=== PATIENT | female | born 2000 | race Caucasian/White ===

== ENCOUNTER 2019-05-05 16:20 | Outpatient (RCR) | payer MEDICAID, SELFPAY | END 2019-05-05 23:59 | disposition home or self-care (01) | LOC: NS 16:20 | PROVIDERS: Family Provider Pediatrics; PCP Pediatrics; Visit Provider Pediatrics | DX: Z71.3 Dietary counseling and surveillance (principal); E66.9 Obesity, unspecified; Q87.40 Marfan syndrome, unspecified; Z68.35 Body mass index [BMI] 35.0-35.9, adult | CPT/HCPCS: 97802 ==

== ENCOUNTER 2020-11-13 00:55 | Emergency (ER) | payer MEDICAID, SELFPAY ==
[2020-11-13 01:00] VITALS: BP 144/82; PULSE 101; RESP 16; TEMP 36.8; O2SAT 97; BMI 36.9
--- NOTE | 2020-11-13 01:02 | ED.VIS.FEGU ---
HPI HPI - Female History of Present Illness Chief Complaint: Female C/O Narrative Narrative: Patient stated she has had brown discharge for a month patient stated she denies any pain. No history of STD. Not foul-smelling. Stated she has some numbness in her vagina which concerned her tonight therefore she came in. Took a negative test today. No abdominal pain. No fevers or chills. PFSH PFS Medical History ADHD (attention deficit hyperactivity disorder) Femur fracture, right Retinal detachment, old, total/subtotal Home Medications dextroamphetamine-amphetamine [Adderall 30 mg Tablet] 30 mg PO DAILY 04/03/15 [History Last Taken Unknown] dextroamphetamine-amphetamine [Adderall 5 mg Tablet] 10 mg PO DAILY 04/03/15 [History Last Taken Unknown] methylphenidate HCl [Ritalin] 20 mg PO DAILY 04/03/15 [History Last Taken Unknown] topiramate [Topamax] 25 mg PO DAILY 04/03/15 [History Last Taken Unknown] venlafaxine 37.5 mg PO DAILY 04/03/15 [History Last Taken Unknown] Allergy/AdvReac Type Severity Reaction Status Date / Time No Known Allergies Allergy Verified 11/13/20 00:56 Social History Smoking Status: Light Smoker (<10/day) ROS ROS ED ROS Narrative ROS General: Denies fever, chills, sweats Eyes: Denies visual changes, blurred vision, double vision ENT: Denies ear pain, rhinorrhea, sore throat Cardiovascular: Denies chest pain, palpitations, heart racing Respiratory: Denies dyspnea, cough, sputum, dyspnea on exertion, orthopnea,PND GI: Denies abdominal pain, nausea, vomiting, diarrhea, constipation, melena : Denies dysuria, hematuria, frequency. See HPI Musculoskeletal: Denies myalgias, arthralgias, neck pain, back pain Skin: Denies rash, abscess, abrasions Neuro: Denies headache, weakness, paresthesia Psych: Denies depression, anxiety Endo: Denies polyuria, polydipsia, polyphagia Heme: Denies easy bruising, easy bleeding, lymphadenopathy Allergy: Denies hives, swelling EXAM Physical Exam Narrative Exam Narrative: Vital signs reviewed General: Well-nourished well-developed Head: Normocephalic atraumatic Eyes: Pupils equal round and reactive to light extraocular movements intact ENT: TMs clear no hemotympanum no trauma Neck: Nontender full range of motion Cardiovascular: Regular rate rhythm no murmurs normal S1-S2 Respiratory: No distress clear to auscultation bilaterally chest nontender Abdomen: Soft nontender nondistended normal bowel sounds no masses Pelvic exam:: Mild scant brownish discharge in the vaginal vault. Cervix normal. No tenderness. Back: Nontender no CVA tenderness Extremities: Nontender active range of motion ?4 extremities no trauma Skin: Normal color no trauma Neuro alert oriented cranial nerves II through XII intact normal strength sensation reflexes Const Vital Signs: 11/13/20 01:00 Temperature 98.3 F Temperature Source Oral Pulse Rate 101 H Respiratory Rate 16 Blood Pressure 144/82 H Blood Pressure Mean 102 Pulse Ox 97 Oxygen Delivery Method Room Air MDM MDM MDM Narrative Medical decision making narrative: Pelvic exam unremarkable. Urinalysis shows no evidence of infection. I did send gonorrhea and chlamydia test however I have a low suspicion for infection. I will not treat her. I feel she is likely just having some shedding of her endometrial lining. She started her period while in the emergency department. We will follow-up as an outpatient Lab Data Labs: Laboratory Results - last 24 hr 11/13/20 02:10 Urine Color Yellow Urine Clarity Clear Urine pH 5.0 Ur Specific [place] 1.025 Urine Protein Negative Urine Glucose (UA) Normal Urine Ketones Negative Urine Occult Blood 10 H Urine Nitrite Negative Urine Bilirubin Negative Urine Urobilinogen Normal Ur Leukocyte Esterase 25 H Urine RBC 0 SEEN Urine WBC 0-5 SEEN Ur Squamous Epith Cells 0-5 SEEN Urine Bacteria RARE Urine Mucus 1+ Discharge Plan Triage Chief Complaint: Female C/O ED Provider: [place] Dx/Rx/DC Orders Clinical Impression: Vaginal discharge Instructions: ED Pelvic Pain, Unknown Cause Prescriptions: No Action methylphenidate HCl [Ritalin] 20 MG tablet 20 mg PO DAILY RF: 0 topiramate [Topamax] 25 MG tablet 25 mg PO DAILY RF: 0 dextroamphetamine-amphetamine [Adderall] 30 MG tablet 30 mg PO DAILY RF: 0 venlafaxine 37.5 MG tablet 37.5 mg PO DAILY RF: 0 dextroamphetamine-amphetamine [Adderall] 5 MG tablet 10 mg PO DAILY RF: 0 Primary Care Provider: Hugo Smalls Referrals: Suyapa Recinos MD [STAFF PHYSICIAN] - Hugo Smalls MD [Primary Care Provider] - Disposition Disposition: Home, self care
[2020-11-13 02:17] LABS: Red Blood Cells-Urine 0 SEEN /hpf (0-5)
[2020-11-13 02:21] LABS: Color, Urine Yellow (Yellow); Glucose, Dipstick Normal (Normal); Ketone-Dipstick Negative (Negative); Leukocyte Esterase-Dipstick 25 /ul (Negative); Nitrite-Dipstick Negative (Negative); Occult Blood-Urine 10 /ul (Negative); Protein-Dipstick Negative (Negative); Specific Gravity, Urine 1.025 (1.002-1.030); Urine Bilirubin Dipstick Negative (Negative); Urine Clarity Clear (Clear); Urine Urobilinogen Normal (Normal)
[2020-11-13 02:30] LABS: Bacteria RARE /hpf (None Seen); Mucous, Urine 1+ /hpf (<or=2+); Squamous Epithelial Cells - UA 0-5 SEEN /hpf (5-10); White Blood Cells 0-5 SEEN /hpf (0-5)
[2020-11-13 04:03] LABS: Chlamydia Trachomatis by PCR Negative (Negative); Neisserai gonorrhoeae by PCR Negative (Negative); Probe Check PASS; Sample Adequacy Control PASS; Specimen Processing Control PASS
== END 2020-11-13 03:09 | disposition home or self-care (01) ==
PROVIDERS: Emergency Provider Emergency Medicine; PCP Pediatrics
DX: N89.8 Other specified noninflammatory disorders of vagina (principal); F90.9 Attention-deficit hyperactivity disorder, unspecified type
CPT/HCPCS: 81001; 87491; 87591; 99282

== ENCOUNTER 2022-01-26 01:59 | Emergency (ER) | payer MEDICAID, SELFPAY ==
[2022-01-26 01:59] VITALS: BP 143/82; PULSE 119; RESP 18; TEMP 36.9; O2SAT 100; BMI 38.6
--- NOTE | 2022-01-26 02:14 | RAD_ITS ---
STUDY: X-RAY - RIGHT FOOT CLINICAL: Female, 21 years old. Pain after injury. TECHNIQUE: 3 view(s) of the foot. COMPARISON: Ankle radiographs same date. FINDINGS: No visible fracture. No osseous destruction. Alignment anatomic. No significant degenerative changes. Soft tissues unremarkable. RAD/Foot min 3 Views IMPRESSION: No acute osseous abnormality. Electronically Signed: Sonido Chong MD at 3:01 EDT ,
--- NOTE | 2022-01-26 02:14 | RAD_ITS ---
STUDY: X-RAY - RIGHT ANKLE REASON FOR EXAM: Female, 21 years old. Injury. TECHNIQUE: 3 view(s) of the ankle. COMPARISON: Foot radiographs same date. FINDINGS: No visible fracture. No osseous destruction. Alignment anatomic. No significant degenerative changes. Soft tissues unremarkable. RAD/Ankle min 3 Views IMPRESSION: No acute osseous abnormality. Electronically Signed: Sonido Chong MD at 3:00 EDT ,
[2022-01-26] MEDS: Naproxen 250 MG Tablet 500 MG PO (02:27)
--- NOTE | 2022-01-26 02:32 | ED.VIS.LOWEX ---
HPI History of Present Illness Chief Complaint: Lower Extremity Injury Informant: patient Onset/Context/Timing Onset: Hours (9) Context: Sudden Onset Timing: Continuous Quality of Pain: Aching Location: Right ankle/foot Current Severity: Moderate Maximum Severity: Moderate Worsened by: Walking, weightbearing Relieved by: Rest Associated Symptoms Associated Symptoms: Negative for Parasthesia, Weakness or Loss of Funtion Narrative Narrative: Patient states she went off of a diving board and somehow twisted her ankle, she describes an inversion injury, but all of her pain is in the arch of her foot. Able to walk on it but painful. No other injury. [facility] Medical History ADHD (attention deficit hyperactivity disorder) Femur fracture, right Marfan syndrome Retinal detachment, old, total/subtotal Home Medications dextroamphetamine-amphetamine 30 mg tablet (Adderall) 30 mg PO DAILY 04/03/15 [History Last Taken Unknown] dextroamphetamine-amphetamine 5 mg tablet (Adderall) 10 mg PO DAILY 04/03/15 [History Last Taken Unknown] methylphenidate HCl 20 mg tablet (Ritalin) 20 mg PO DAILY 04/03/15 [History Last Taken Unknown] topiramate 25 mg tablet (Topamax) 25 mg PO DAILY 04/03/15 [History Last Taken Unknown] venlafaxine 37.5 mg tablet 37.5 mg PO DAILY 04/03/15 [History Last Taken Unknown] Allergy/AdvReac Type Severity Reaction Status Date / Time No Known Allergies Allergy Verified 01/26/22 02:02 Social History Smoking Status: Light Smoker (<10/day) ROS ROS ED Constitutional Constitutional ED: Denies chills or fever(s) Musculoskeletal Musculoskeletal: Reports extremity pain; Denies neck pain Integumentary Denies Abrasions, rash or wounds Neurologic Neurologic: Denies paresthesias or weakness EXAM Physical Exam Const Vital Signs: 01/26/22 01:59 Temperature 98.4 F Temperature Source Temporal Pulse Rate 119 H Respiratory Rate 18 Blood Pressure 143/82 H Blood Pressure Mean 102 Pulse Ox 100 Oxygen Delivery Method Room Air Positive well nourished and well developed General Appearance ED: well developed and NAD Neck full ROM and supple Back/Spine normal ROM and normal to inspection Extremity normal to inspection and full ROM Extremity Narrative: Minimal tenderness at the medial malleolus distal aspect, nontender at the lateral malleolus and base of the fifth metatarsal. Nontender at the knee, proximal fibula, rest of the lower leg. Mild tenderness at the medial aspect of the talus and the soft tissues of the arch of the foot. Normal inspection, no swelling, no calcaneus or other midfoot tenderness. Neuro oriented x3, no focal motor deficits and no sensory deficits noted Sensorium / Orientation: alert Psych mental status grossly normal and thought process normal Skin no wounds Rashes: no rashes MDM MDM MDM Narrative Medical decision making narrative: Three-view x-ray series of the right ankle and 3 view x-ray series of the right foot both on my interpretation negative for any acute abnormality. She was reassured, given NSAIDs, Aircast, and discharged with appropriate discharge instructions for follow-up as needed if not improving after 2 weeks. Discharge Plan Triage Chief Complaint: Lower Extremity Injury ED Provider: Gerardo Constantino Dx/Rx/DC Orders Clinical Impression: Sprain of ankle, right, Sprain of foot, right Instructions: ED Foot Sprain, ED Ankle Sprain (Adult) Prescriptions: No Action methylphenidate HCl [Ritalin] 20 MG tablet 20 mg PO DAILY topiramate [Topamax] 25 MG tablet 25 mg PO DAILY dextroamphetamine-amphetamine [Adderall] 30 MG tablet 30 mg PO DAILY venlafaxine 37.5 MG tablet 37.5 mg PO DAILY dextroamphetamine-amphetamine [Adderall] 5 MG tablet 10 mg PO DAILY Primary Care Provider: Care Physician,No Primary Referrals: Philippe Auguste DPM [Med Staff - Active Staff] - 10-14 Days if not better Care Physician,No Primary [Primary Care Provider] - Activity Restrictions/Additional Instructions: Ibuprofen as needed for pain. May add Tylenol to this if you need to. May also ice the affected area if you need to and elevate if swollen. Disposition Disposition: Home, Self Care
== END 2022-01-26 03:18 | disposition home or self-care (01) ==
PROVIDERS: Emergency Provider Emergency Medicine; Visit Provider Emergency Medicine
DX: S93.401A Sprain of unspecified ligament of right ankle, initial encounter (principal); S93.601A Unspecified sprain of right foot, initial encounter; X50.1XXA Overexertion from prolonged static or awkward postures, initial encounter; Y93.12 Activity, springboard and platform diving; Y99.8 Other external cause status; F90.9 Attention-deficit hyperactivity disorder, unspecified type; F17.200 Nicotine dependence, unspecified, uncomplicated; Z79.899 Other long term (current) drug therapy
CPT/HCPCS: 73610; 73630; 99283

== ENCOUNTER 2022-04-11 00:48 | Emergency (ER) | payer MEDICAID, SELFPAY ==
[2022-04-11 00:49] VITALS: BP 139/81; PULSE 96; RESP 18; TEMP 36.8; O2SAT 100; BMI 38.9
--- NOTE | 2022-04-11 00:55 | EKG12_ITS ---
Test Reason : CP Blood Pressure : / mmHG Vent. Rate : 088 BPM Atrial Rate : 088 BPM P-R Int : 154 ms QRS Dur : 076 ms QT Int : 370 ms P-R-T Axes : 047 044 053 degrees QTc Int : 447 ms Normal sinus rhythm Normal ECG Confirmed by LOIRN MEDRANO, NIMCO ([id number]), editor dictionary LOS ZARATE ([id number]) on 04/15/2022 9:46:03 A M Referred By: [facility] Confirmed By:LULI PADGETT MD
[2022-04-11] MEDS: Mag Hydrox/Al Hydrox/Simeth 30 ML UDC PO (01:20)
[2022-04-11 01:22] LABS: Absolute Lymphocyte Count 5.53 X10^3/uL (0.83-4.51); Absolute Neutrophil Count 8.3 X10^3/uL (2.0-7.7); Basophil# 0.11 X10^3/uL; Basophil% 0.7 % (0-1); Eosinophil# 0.24 X10^3/uL; Eosinophils% 1.6 % (0-5); Hematocrit 39.5 % (37-47); Hemoglobin 13.5 g/dL (12.0-15.0); Lymphocyte # 5.53 X10^3/ul (0.83-4.51); Lymphocyte % 36.2 % (19-41); Mean Corp Hgb Conc 34.2 g/dL (32-36); Mean Corpuscular Hgb 30.8 pg (27.0-32.0); Mean Corpuscular Volume 90.2 fL (81-99); Mean Platelet Vol. 9.7 fl (6.2-12.0); Monocyte# 1.04 X10^3/uL; Monocyte% 6.8 % (0-10); NRBC Flagged by Analyzer 0 % (0-5); Neutrophil # 8.29 X10^3/uL (2.7-7.7); Neutrophil % 54.4 % (47-70); POSITIVE DIFFERENTIAL YES; Platelet Count 493 K/mm3 (150-450); RBC Distribution Width CV 12.1 % (11.6-14.6); RBC Distribution Width SD 40.5 fl (35.1-43.9); Red Blood Count 4.38 M/mm3 (4.2-5.4); White Blood Count 15.3 K/mm3 (4.4-11.0)
[2022-04-11 01:32] LABS: Differential Indicated SCAN CRITERIA MET
[2022-04-11] MEDS: Famotidine 200 MG/20 ML MDV 20 MG in 0.9% Normal Saline (Pres. free 8 ML 300 MG IV (01:33)
[2022-04-11 01:45] LABS: Differential Comment SCANNED
[2022-04-11 01:49] LABS: AST(SGOT) 53 U/L (15-37); Alanine Aminotransfer ALT/SGPT 92 U/L (13-56); Albumin, Serum 3.4 g/dL (3.2-5.0); Alkaline Phosphatase 78 U/L (45-117); Anion Gap 7 (5-15); BUN 8 mg/dL (7-18); BUN/Creat Ratio 10.3 RATIO (10-20); Bilirubin, Direct 0.07 mg/dL (0.00-0.30); Calcium,Total 8.8 mg/dL (8.5-10.1); Chloride 106 mmol/L (98-107); Creatinine, Serum 0.77 mg/dL (0.55-1.02); EST Glomerular Filtration Rate 98 mL/min (>60); Est Glom Filt Rate - Afr Amer 119 mL/min (>60); Estimated Creatinine Clearance 135.25 ml/min; Globulin 4.7 g/dL (2.2-4.2); Glucose 92 mg/dL (74-106); Lipase 124 U/L (73-393); Potassium 3.8 mmol/L (3.5-5.1); Protein, Total 8.1 g/dL (6.4-8.2); Sodium Level 140 mmol/L (136-145); Troponin-I HS 4 pg/mL (3.0-54.0)
--- NOTE | 2022-04-11 01:50 | RAD_ITS ---
STUDY: X-RAY CHEST REASON FOR EXAM: Female, 21 years old. chest pain TECHNIQUE: Frontal and lateral views of the chest. COMPARISON: None. FINDINGS: The lungs are clear and expanded. There is no demonstrated pleural abnormality. Normal size heart. Normal mediastinum and yoly. Normal visualized pulmonary arteries. Normal visualized aortic arch and descending thoracic aorta. Normal visualized thoracic spine. Normal visualized ribs, clavicles, and shoulders. There is no demonstrated abnormality of the visualized soft tissue structures of the upper abdomen. RAD/Chest PA and Lateral IMPRESSION: Normal x-ray examination of the chest. Electronically Signed: Alexandra Paz MD at 3:09 EDT ,
--- NOTE | 2022-04-11 01:55 | EX.ED.DYSGE1 ---
HPI History of Present Illness Chief Complaint: Chest Pain Narrative Narrative: Patient is a 21-year-old female with past medical history of Marfan syndrome. She states that around 11 PM this evening she noticed some midsternal chest discomfort which she states is more burning in nature. She denies any radiation of the pain and she denies any nausea vomiting diaphoresis or shortness of breath associated with this. She denies any recent travel surgery or history of DVT/PE. She denies any family history of cardiac disease at a young age. She states that because of her Marfan syndrome she is concerned that this discomfort could be related to her heart and therefore comes in for evaluation [facility] Medical History ADHD (attention deficit hyperactivity disorder) Femur fracture, right Marfan syndrome Retinal detachment, old, total/subtotal Home Medications dextroamphetamine-amphetamine 30 mg tablet (Adderall) 30 mg PO DAILY 04/03/15 [History Last Taken Unknown] dextroamphetamine-amphetamine 5 mg tablet (Adderall) 10 mg PO DAILY 04/03/15 [History Last Taken Unknown] methylphenidate HCl 20 mg tablet (Ritalin) 20 mg PO DAILY 04/03/15 [History Last Taken Unknown] Allergy/AdvReac Type Severity Reaction Status Date / Time No Known Allergies Allergy Verified 01/26/22 02:02 Social History Smoking Status: Light Smoker (<10/day) [facility] ED Constitutional Constitutional ED: Denies chills or fever(s) ENT ENT ED: Denies sore throat Cardiovascular Cardiovascular: Reports chest pain; Denies palpitations or racing heartbeat Respiratory/Chest Respiratory/Chest: Denies cough or dyspnea Gastrointestinal Gastrointestinal: Denies abdominal pain, diarrhea, nausea or vomiting Genitourinary Genitourinary ED: Denies dysuria Musculoskeletal Musculoskeletal: Denies back pain or myalgias Integumentary Denies rash Neurologic Neurologic: Denies headache(s) Hematologic/Lymphatic Hematologic/Lymphatic: Denies easy bleeding or easy bruising EXAM Physical Exam Const Vital Signs: 04/11/22 00:49 04/11/22 00:51 04/11/22 01:56 Temperature 98.2 F Temperature Source Temporal Pulse Rate 96 85 Respiratory Rate 18 16 Respiratory Effort Normal Blood Pressure 139/81 H 131/94 H Blood Pressure Mean 100 106 Pulse Ox 100 97 Oxygen Delivery Method Room Air Room Air 04/11/22 02:02 Temperature Temperature Source Pulse Rate 91 Respiratory Rate 20 H Respiratory Effort Blood Pressure 130/77 H Blood Pressure Mean 94 Pulse Ox 96 Oxygen Delivery Method Room Air Positive well nourished, well developed and obese General Appearance ED: well developed Nutritional Appearance: obese Eyes PERRL and EOMs intact bilaterally Neck supple Chest Wall Chest Narrative: Reproducible pain along the sternum without any bony deformity or crepitance that patient states is similar to the pain she has been experiencing Resp normal respiratory effort and clear to auscultation bilaterally Cardio regular rate and regular rhythm Rate: other Other Details: Radial pulses are plus 2 out of 4 bilaterally they are equal and symmetric Carotid pulses are equal and symmetric as well GI non-distended GI Narrative: Abdomen is soft and nondistended with normoactive bowel sounds. There is mild pain with palpation in the midepigastric region without voluntary guarding or rigidity. No pulsatile mass Auscultation: normoactive bowel sounds Palpation: soft Extremity normal to inspection Extremity Narrative: No asymmetric edema no pitting edema negative Homans' sign bilaterally Neuro oriented x3 and CN's II-XII intact bilaterally Sensorium / Orientation: alert Psych mental status grossly normal Skin no rashes or lesions noted MDM MDM MDM Narrative Medical decision making narrative: Patient presented to the ER in no acute distress. She is low risk for cardiovascular disease but based on her history of Marfan syndrome I did elect to check basic labs and an x-ray. Also as I was able to reproduce pain in the midepigastric region there was concern for an atypical presentation for pancreatitis. Blood work showed elevation to her white blood cell count which patient states has been elevated in the past but otherwise troponin is normal and lipase is normal as well. As she has Marfan's and is at higher risk for spontaneous pneumothorax chest x-ray was obtained which did not reveal this nor did it show widening mediastinum to suggest a possible dissection. Patient was given Pepcid and a GI cocktail and on reevaluation did report moderate improvement of her symptoms. Therefore at this time as her work-up is negative and the fact symptoms have improved with Pepcid and GI cocktail indicate this is more of a gastritis and she is otherwise safe for discharge Lab Data Attestation: I reviewed the patient's lab results. Labs: Laboratory Results - last 24 hr 04/11/22 04/11/22 01:10 01:10 WBC 15.3 H RBC 4.38 Hgb 13.5 Hct 39.5 MCV 90.2 MCH 30.8 MCHC 34.2 RDW Std Deviation 40.5 RDW Coeff of [place] 12.1 Plt Count 493 H MPV 9.7 Immature Gran % (Auto) 0.300 Neut % (Auto) 54.4 Lymph % (Auto) 36.2 [place] % (Auto) 6.8 Eos % (Auto) 1.6 Baso % (Auto) 0.7 Absolute Neuts (auto) 8.3 H Absolute Lymphs (auto) 5.53 H Nucleated RBC % 0 Differential Comment SCANNED Sodium 140 Potassium 3.8 Chloride 106 Carbon Dioxide 27.0 Anion Gap 7 BUN 8 Creatinine 0.77 Estim Creat Clear Calc 135.25 Est GFR (MDRD) Af Amer 119 Est GFR (MDRD) Non-Af 98 BUN/Creatinine Ratio 10.3 Glucose 92 Calcium 8.8 Total Bilirubin 0.30 Direct Bilirubin 0.07 AST 53 H ALT 92 H Alkaline Phosphatase 78 Troponin I High Sens 4 Total Protein 8.1 Albumin 3.4 Globulin 4.7 H Lipase 124 Radiography Diagnostic Testin view chest x-ray as interpreted by the emergency medicine physician reveals no acute infiltrate pneumothorax or pleural effusion Discharge Plan Triage Chief Complaint: Chest Pain ED Provider: Wei Angulo Dx/Rx/DC Orders Clinical Impression: Marfan syndrome, Acute nonspecific chest pain with low risk of coronary artery disease Instructions: ED Chest Pain, Uncertain Cause, ED GERD (Adult) Prescriptions: No Action methylphenidate HCl [Ritalin] 20 MG tablet 20 mg PO DAILY dextroamphetamine-amphetamine [Adderall] 30 MG tablet 30 mg PO DAILY dextroamphetamine-amphetamine [Adderall] 5 MG tablet 10 mg PO DAILY Primary Care Provider: Hugo Smalls Referrals: Hugo Smalls MD [Primary Care Provider] - Activity Restrictions/Additional Instructions: Please return to the ER should you have any further concerns or worsening of symptoms Disposition Disposition: Home, Self Care
[2022-04-11 01:56] VITALS: BP 131/94; PULSE 85; RESP 16; O2SAT 97
[2022-04-11 02:02] VITALS: BP 130/77; PULSE 91; RESP 20; O2SAT 96
[2022-04-11 02:23] VITALS: BP 133/86; PULSE 76; RESP 14; O2SAT 98
== END 2022-04-11 02:25 | disposition home or self-care (01) ==
PROVIDERS: Emergency Provider Emergency Medicine; PCP Pediatrics; Visit Provider Emergency Medicine
DX: Q87.40 Marfan syndrome, unspecified (principal); R07.9 Chest pain, unspecified; E66.9 Obesity, unspecified; Z68.38 Body mass index [BMI] 38.0-38.9, adult; F17.200 Nicotine dependence, unspecified, uncomplicated
CPT/HCPCS: 71046; 80048; 80076; 83690; 84484; 85025; 93005; 96374; 99284; A4216; J3490

== ENCOUNTER 2023-07-26 00:24 | Emergency (ER) | payer MEDICAID, SELFPAY ==
[2023-07-26 00:27] VITALS: BP 125/79; PULSE 103; RESP 16; TEMP 36.4; O2SAT 95; BMI 40.4
--- NOTE | 2023-07-26 00:50 | RAD_ITS ---
INDICATION: Injury/Pain EXAMINATION/TECHNIQUE: X-RAY - RIGHT XR Hand Min 3 Views 3 VIEWS COMPARISON: FINDINGS: BONES: No fracture demonstrated. JOINTS: No dislocation. SOFT TISSUES: Soft tissue swelling dorsally overlying the distal metacarpals. RAD/Hand Min 3 Views IMPRESSION: Soft tissue swelling. No evidence of fracture. Electronically Signed: Ruthie Joseph MD at 1:20 EST ,
--- OUTSIDE RECORDS SUMMARY | 2023-07-26 01:12 | XMS RPT_ITS | CCD ---
Author Name Unknown Address [address] [place] [address] Organization [facility] Care Team Providers Care Development Consultant Name Role Phone JESSICA NOGUERA Unavailable Unavailable IMCA Unavailable Unavailable JESSICA NOGUERA Unavailable Unavailable [facility] Unavailable Unavailable GERRI SORENSEN Attending Unavailable RUSS CHESTER Attending Unavailable GERRI SORENSEN Referring Unavailable GERRI SORENSEN Attending Unavailable NATO VALDEZ Attending Unavailable Antonio Smalls MD Primary Care Provider Antonio Smalls MD Primary Care Provider Antonio Smalls MD Primary Care Provider KELVIN HAYES Attending Unavailable KELVIN HAYES Admitting Unavailable ANTONIO SMALLS Primary Care Unavailable Zuleika Perez PA-C Unavailable [phone] Wilmer Arreguin MD Primary Care Provider Kate Silva MD Primary Care Provider PROVIDER, UNKNOWN Referring Unavailable KATE SILVA Primary Care Unavailable KARLOS JETT Referring Unavailable WILMER ARREGUIN Primary Care Unavailable Eliz MEDRANO, Gopal Unavailable [phone] Zuleika Cross PA-C Unavailable [phone] Antonio Smalls MD Primary Care Provider ANTONIO SMALLS Referring Unavailable KATE SILVA Primary Care Unavailable SHIRA KATE Scott Primary Care Unavailable ZULEIKA CROSS Referring Unavailable ANTONIO SMALLS Primary Care Unavailable ZULEIKA CROSS Referring Unavailable RUSSELL BURRIS Attending Unavailable ANTONIO SMALLS Primary Care Unavailable KELLY NUNEZ Referring Unavailable SHIRA KATE D Primary Care Unavailable TALAMPAS, KATE D Primary Care Unavailable KARLOS JETT Referring Unavailable TALAMPAS, KATE D Primary Care Unavailable TALAMPAS, KATE D Primary Care Unavailable ALFONSO, DEMI Referring Unavailable TALAMPAS, KATE D Primary Care Unavailable TALAMPAS, KATE D Attending Unavailable RUSSELL BURRIS Referring Unavailable PLAYL, ANTONIO M Primary Care Unavailable GOPAL YANEZ Referring Unavailable GOPAL YANEZ Attending Unavailable TALAMPAS, KATE D Primary Care Unavailable TALAMPAS, KATE D Primary Care Unavailable SHER [place]TH Attending Unavailable TALAMPAS, KATE D Primary Care Unavailable ZULEIKA CROSS Attending Unavailable TALAMPAS, KATE D Primary Care Unavailable ZULEIKA CROSS Referring Unavailable TALAMPAS, KATE D Primary Care Unavailable ZULEIKA CROSS Referring Unavailable TALAMPAS, KATE D Primary Care Unavailable ZULEIKA CROSS Attending Unavailable PLAYL, ANTONIO M Primary Care Unavailable KELLY NUNEZ Attending Unavailable TALAMPAS, KATE D Primary Care Unavailable KELLY NUNEZ Referring Unavailable TALAMPAS, KATE D Primary Care Unavailable SHER [place] Referring Unavailable TALAMPAS, KATE D Primary Care Unavailable GOPAL YANEZ Referring Unavailable GOPAL YANEZ Attending Unavailable TALAMPAS, KATE D Primary Care Unavailable PLAYL, ANTONIO M Primary Care Unavailable RUSSELL BURRIS Referring Unavailable TALAMPAS, KATE D Primary Care Unavailable MICHELLEIK, KHALED NANCY Attending Unavailable TALAMPAS, KATE D Primary Care Unavailable ALFONSODEMI Referring Unavailable DEMI ALFONSO Attending Unavailable TALAMPAS, KATE D Primary Care Unavailable LORNA DAY Referring Unavailable TALAMPAS, KATE D Primary Care Unavailable KARLOS JETT Attending Unavailable TALAMPAS, KATE D Primary Care Unavailable TALAMPAS, KATE D Primary Care Unavailable GOPAL YANEZ Referring Unavailable TALAMPAS, KATE D Primary Care Unavailable ALFONSO, DEMI Referring Unavailable TALAMPAS, KATE D Primary Care Unavailable KARLOS JETT Attending Unavailable TALAMPAS, KATE D Primary Care Unavailable TALAMPAS, KATE D Primary Care Unavailable KARLOS JETT Attending Unavailable PLAYL, ANTONIO M Primary Care Unavailable PLAYL, ANTONIO M Referring Unavailable SLEIK, KHOBDULIAD NANCY Attending Unavailable PLAYL, ANTONIO M Primary Care Unavailable SLEIK, KHOBDULIAD NANCY Referring Unavailable WILMER ARREGUIN Primary Care Unavailable DEMI ALFONSO Attending Unavailable ANTONIO SMALLS Referring Unavailable KATE SILVA Primary Care Unavailable Medications Current Medications Medication Drug Class(es) Dates Sig (Normalized) Sig (Original) amoxicillin 875 mg oral tablet (7 sources) Penicillin-class Antibacterial Start: 03-20-2023 End: 03-27-2023 take 1 tablet by mouth twice daily amoxicillin (AMOXIL) 875 mg tablet Take 1 tablet by mouth twice daily for 7 days. 14 tablet 0 03/20/2023 03/27/2023 Active Completed/Discontinued Medications Medication Drug Class(es) Dates Sig (Normalized) Sig (Original) 24 hr amphetamine aspartate 7.5 mg / amphetamine sulfate 7.5 mg / dextroamphetamine saccharate 7.5 mg / dextroamphetamine sulfate 7.5 mg extended release oral capsule (20 sources) Central Nervous System Stimulant Start: 03-05-2022 End: 09-16-2023 take 1 capsule by mouth once daily in the morning amphetamine-dextro amphetamine XR (ADDERALL XR) 30 mg capsule Indications: Attention deficit hyperactivity disorder (ADHD), combined type Take 1 capsule by mouth every morning for 30 days. 30 capsule 0 05/19/2023 06/06/2023 Discontinued Problems Active Problems Problem Classification Problem Date Documented Da te Episodic/Chronic Abdominal pain (3 sources) Abdominal pain; Translations: [Unspecified abdominal pain] Episodic Anxiety disorders (20 sources) Anxiety; Translations: [Anxiety disorder, unspecified] Onset: 2 Chronic Attention-deficit, conduct, and disruptive behavior disorders (20 sources) Attention deficit hyperactivity disorder, combined type; Translations: [Attention-deficit hyperactivity disorder, combined type] Onset: 9 Chronic Attention-deficit, conduct, and disruptive behavior disorders (20 sources) Oppositional defiant disorder; Translations: [Oppositional defiant disorder] Onset: 7 02-03-2017 Chronic Attention-deficit, conduct, and disruptive behavior disorders (1 source) Attention-deficit hyperactivity disorder, combined type; Translations: [Attention deficit hyperactivity disorder (ADHD), combined type] Onset: 5 Chronic Diseases of white blood cells (3 sources) Leukocytosis; Translations: [Elevated white blood cell count, unspecified] Onset: 3 Chronic Genitourinary symptoms and ill-defined conditions (1 source) Abnormal urination; Translations: [Other difficulties with micturition] Episodic Headache; including migraine (20 sources) Migraine; Translations: [Migraine, unspecified, not intractable, without status migrainosus] Onset: 6 04-22-2016 Chronic Hemorrhoids (1 source) Anal skin tag; Translations: [Residual hemorrhoidal skin tags] Episodic Immunizations and screening for infectious disease (8 sources) Contact with and (suspected) exposure to other viral communicable diseases; Translations: [Patient encounter status] Onset: 1 Episodic Malaise and fatigue (3 sources) Fatigue; Translations: [Chronic fatigue, unspecified] Onset: 3 Chronic Menstrual disorders (8 sources) Irregular periods; Translations: [Irregular menstruation, unspecified] Onset: 3 Chronic Miscellaneous mental health disorders (20 sources) Depersonalization disorder; 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] Onset: 6 12-05-2015 Chronic Mood disorders (20 sources) Depressive disorder; Translations: [Depression] Onset: 4 06-25-2021 Chronic Nausea and vomiting (1 source) Nausea; Translations: [Nausea] Episodic Neoplasms of unspecified nature or uncertain behavior (1 source) Thrombocytosis; Translations: [Thrombocytosis] Onset: 3 Chronic Neoplasms of unspecified nature or uncertain behavior (2 sources) Thrombocytosis; Translations: [Thrombocytosis] Episodic Nutritional deficiencies (1 source) Vitamin D deficiency; Translations: [Vitamin D deficiency, unspecified] Chronic Other congenital anomalies (20 sources) Marfan's syndrome; Translations: [Marfan's syndrome, unspecified] Onset: 6 03-05-2006 Chronic Other connective tissue disease (1 source) Disease suspected; Translations: [Other symptoms and signs involving the nervous system] Episodic Other eye disorders (20 sources) Subluxation of lens; Translations: [Subluxation of lens, unspecified eye] 06-25-2021 Chronic Other female genital disorders (1 source) Abnormal uterine and vaginal bleeding, unspecified; Translations: [Abnormal uterine and vaginal bleeding, unspecified] Onset: 1 Chronic Other female genital disorders (1 source) Vaginal discharge; Translations: [Other specified noninflammatory disorders of vagina] 01-10-2023 Episodic Other female genital disorders (1 source) Vaginal odor; Translations: [Other specified noninflammatory disorders of vagina] 05-14-2023 Episodic Other gastrointestinal disorders (4 sources) Diarrhea; Translations: [Diarrhea, unspecified] Episodic Other gastrointestinal disorders (1 source) Heartburn; Translations: [Heartburn] 01-28-2023 Episodic Other liver diseases (6 sources) Steatosis of liver; Translations: [Fatty (change of) liver, not elsewhere classified] Chronic Other liver diseases (2 sources) Fatty (change of) liver, not elsewhere classified; Translations: [Fatty liver] Onset: 3 Chronic Other lower respiratory disease (1 source) Chronic cough; Translations: [Chronic cough] Episodic Other lower respiratory disease (1 source) Dyspnea; Translations: [Shortness of breath] Episodic Other lower respiratory disease (1 source) Snoring; Translations: [Snoring] Episodic Other lower respiratory disease (2 sources) Dyspnea on exertion; Translations: [Shortness of breath] Episodic Other non-traumatic joint disorders (1 source) Acute ankle pain; Translations: [Pain in right ankle and joints of right foot] Episodic Other nutritional; endocrine; and metabolic disorders (20 sources) Body mass index 40+ - severely obese; Translations: [Morbid (severe) obesity due to excess calories] Onset: 3 Chronic Other nutritional; endocrine; and metabolic disorders (18 sources) Obese class II; Translations: [Obesity, unspecified] Onset: 3 01-20-2023 Chronic Other nutritional; endocrine; and metabolic disorders (1 source) Severe obesity; Translations: [Morbid (severe) obesity due to excess calories] 07-06-2023 Chronic Other nutritional; endocrine; and metabolic disorders (1 source) Obesity, unspecified; Translations: [Obesity, Class II, BMI 35-39.9] Onset: 3 Chronic Other nutritional; endocrine; and metabolic disorders (1 source) Morbid (severe) obesity due to excess calories; Translations: [Obesity, Class III, BMI 40-49.9 (morbid obesity) (HCC)] Onset: 3 Chronic Other upper respiratory disease (1 source) Chronic rhinitis; Translations: [Chronic rhinitis] Chronic Other upper respiratory infections (1 source) Chronic sinusitis; Translations: [Chronic sinusitis, unspecified] Chronic Other upper respiratory infections (4 sources) Sore throat symptom; Translations: [Acute pharyngitis, unspecified] Episodic Otitis media and related conditions (4 sources) Dysfunction of bilateral eustachian tubes; Translations: [Other specified disorders of Eustachian tube, bilateral] Episodic Residual codes; unclassified (5 sources) Obstructive sleep apnea syndrome; Translations: [Obstructive sleep apnea (adult) (pediatric)] Chronic Residual codes; unclassified (1 source) Obstructive sleep apnea (adult) (pediatric); Translations: [ESTEBAN (obstructive sleep apnea)] Onset: 3 Chronic Spondylosis; intervertebral disc disorders; other back problems (1 source) Neck pain; Translations: [Cervicalgia] 07-06-2023 Episodic Unclassified (1 source) Unknown / UNK(Unknown) Onset: 7 Urinary tract infections (1 source) Urinary tract infectious disease; Translations: [Urinary tract infection, site not specified] Episodic Past or Other Problems Problem Classification Problem Date Documented Da te Episodic/Chronic Anxiety disorders (20 sources) Outbursts of anger; Translations: [Irritability and anger] Onset: 10-12-2012 10-12-2012 Episodic Crushing injury or internal injury (1 source) Crushing injury of left foot, initial encounter; Translations: [Crushing injury of left foot, initial encounter] Onset: 04-19-2021 Episodic Inflammatory diseases of female pelvic organs (2 sources) Acute vaginitis; Translations: [Acute vaginitis] Onset: 11-19-2022 Episodic Malaise and fatigue (9 sources) Malaise and fatigue; Translations: [Other malaise] Onset: 08-07-2022 Episodic Nonspecific chest pain (3 sources) Precordial pain; Translations: [Precordial pain] Onset: 10-18-2022 Episodic Other aftercare (1 source) Encounter for therapeutic drug level monitoring; Translations: [Encounter for therapeutic drug monitoring] Onset: 11-19-2022 Episodic Other connective tissue disease (1 source) Pain in left foot; Translations: [Pain in left foot] Onset: 04-18-2021 Episodic Other connective tissue disease (20 sources) Pain in right foot; Translations: [Pain in right foot] Onset: 03-12-2022 Episodic Other connective tissue disease (2 sources) Other symptoms and signs involving the nervous system; Translations: [Suspected sleep apnea] Onset: 09-06-2022 Episodic Other gastrointestinal disorders (1 source) Heartburn; Translations: [Heartburn] Onset: 01-28-2023 Episodic Other lower respiratory disease (2 sources) Snoring; Translations: [Snoring] Onset: 09-06-2022 Episodic Other lower respiratory disease (1 source) Shortness of breath; Translations: [SOBOE (shortness of breath on exertion)] Onset: 11-05-2022 Episodic Other nutritional; endocrine; and metabolic disorders (20 sources) Overweight in childhood; Translations: [Body mass index (BMI) pediatric, 85th percentile to less than 95th percentile for age] Onset: 09-16-2017 09-16-2017 Episodic Other nutritional; endocrine; and metabolic disorders (20 sources) Childhood obesity; Translations: [Body mass index (BMI) pediatric, greater than or equal to 95th percentile for age] Onset: 04-13-2019 04-13-2019 Episodic Other screening for suspected conditions (not mental disorders or infectious disease) (6 sources) Other specified abnormal findings of blood chemistry; Translations: [Other abnormal blood chemistry] Onset: 10-30-2022 Episodic Superficial injury; contusion (1 source) Contusion of left foot, initial encounter; Translations: [Contusion of left foot, initial encounter] Onset: 04-19-2021 Episodic Unclassified (1 source) Marfan's syndrome, unspecified Onset: 04-29-2017 Viral infection (20 sources) COVID-19; Translations: [Other specified viral infection] Onset: 07-04-2020 07-04-2020 Episodic Results Test Name Value Interpretation Reference Range Facil ity Vital Signs Date Time Vital Sign Value Performing Clinician Bakari ojeda 06-06-2023 15:44-0500 Body height 183.5 cm Kate Silva MD Work Phone: [facility] 06-06-2023 15:44-0500 Body temperature 97.5 [degF] Kate Silva MD Work Phone: [facility] 06-06-2023 15:44-0500 Body weight 138.35 kg Kate Silva MD Work Phone: [facility] 06-06-2023 15:44-0500 Diastolic blood pressure 72 mm[Hg] Kate Silva MD Work Phone: [facility] 06-06-2023 15:44-0500 Heart rate 108 /min Kate Silva MD Work Phone: [facility] 06-06-2023 15:44-0500 Respiratory rate 18 /min Kate Silva MD Work Phone: [facility] 06-06-2023 15:44-0500 SaO2% (BldA) [Mass fraction] 99 % Kate Silva MD Work Phone: [facility] 06-06-2023 15:44-0500 Systolic blood pressure 112 mm[Hg] Kate Silva MD Work Phone: [facility] 05-14-2023 11:22-0500 Body temperature 98.2 [degF] Marielena West APRN.HEAD OF ENGLISH Work Phone: [facility] 05-14-2023 11:22-0500 Body weight 138.53 kg Marielena West APRN.HEAD OF ENGLISH Work Phone: [facility] 05-14-2023 11:22-0500 Diastolic blood pressure 68 mm[Hg] Marielena West APRN.HEAD OF ENGLISH Work Phone: [facility] 05-14-2023 11:22-0500 Heart rate 103 /min Marielena West APRN.HEAD OF ENGLISH Work Phone: [facility] 05-14-2023 11:22-0500 Respiratory rate 16 /min Marielena West APRN.HEAD OF ENGLISH Work Phone: [facility] 05-14-2023 11:22-0500 SaO2% (BldA) [Mass fraction] 98 % Marielena West APRN.HEAD OF ENGLISH Work Phone: [facility] 05-14-2023 11:22-0500 Systolic blood pressure 118 mm[Hg] Marielena West TRANSACTIONAL ATTORNEY.HEAD OF ENGLISH Work Phone: [facility] 04-22-2023 10:11-0400 Body height 188 cm Zuleika Cross PA-C Work Phone: [facility] 04-22-2023 10:11-0400 Body weight 138.94 kg Zuleika Cross PA-C Work Phone: [facility] 04-22-2023 10:11-0400 Diastolic blood pressure 74 mm[Hg] Zuleika Cross PA-C Work Phone: [facility] 04-22-2023 10:11-0400 Heart rate 102 /min Zuleika Gironon PA-C Work Phone: [facility] 04-22-2023 10:11-0400 Systolic blood pressure 112 mm[Hg] Zuleika Cross PA-C Work Phone: [facility] 04-09-2023 13:37-0400 Body weight 138.53 kg Kelly Plotts TRANSACTIONAL ATTORNEY.CNM Work Phone: [facility] 04-09-2023 13:37-0400 Diastolic blood pressure 80 mm[Hg] Kelly Plotts TRANSACTIONAL ATTORNEY.CNM Work Phone: [facility] 04-09-2023 13:37-0400 Systolic blood pressure 118 mm[Hg] Kelly Plotts TRANSACTIONAL ATTORNEY.CNM Work Phone: [facility] 03-20-2023 11:10-0400 Body temperature 97.59 [degF] Keeley Maycol TRANSACTIONAL ATTORNEY.HEAD OF ENGLISH Work Phone: [facility] 03-20-2023 11:10-0400 Body weight 135.44 kg Keeley Maycol TRANSACTIONAL ATTORNEY.HEAD OF ENGLISH Work Phone: [facility] 03-20-2023 11:10-0400 Diastolic blood pressure 76 mm[Hg] Keeley Maycol TRANSACTIONAL ATTORNEY.HEAD OF ENGLISH Work Phone: [facility] 03-20-2023 11:10-0400 Heart rate 102 /min Keeley Maycol TRANSACTIONAL ATTORNEY.HEAD OF ENGLISH Work Phone: [facility] 03-20-2023 11:10-0400 Respiratory rate 18 /min Keeley Maycol TRANSACTIONAL ATTORNEY.HEAD OF ENGLISH Work Phone: [facility] 03-20-2023 11:10-0400 SaO2% (BldA) [Mass fraction] 96 % Keeley Maycol TRANSACTIONAL ATTORNEY.HEAD OF ENGLISH Work Phone: [facility] 03-20-2023 11:10-0400 Systolic blood pressure 102 mm[Hg] Keeley Maycol TRANSACTIONAL ATTORNEY.HEAD OF ENGLISH Work Phone: [facility] 01-28-2023 14:02-0400 Diastolic blood pressure 75 mm[Hg] 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 TRANSACTIONAL ATTORNEY.RUBBER STAMP DIES INSPECTOR Work Phone: [facility] 01-28-2023 14:02-0400 Heart rate 112 /min 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 TRANSACTIONAL ATTORNEY.RUBBER STAMP DIES INSPECTOR Work Phone: [facility] 01-28-2023 14:02-0400 Systolic blood pressure 111 mm[Hg] 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 TRANSACTIONAL ATTORNEY.RUBBER STAMP DIES INSPECTOR Work Phone: [facility] 01-28-2023 13:48-0400 Body temperature 98.6 [degF] 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 TRANSACTIONAL ATTORNEY.RUBBER STAMP DIES INSPECTOR Work Phone: [facility] 01-28-2023 13:48-0400 Body weight 135.17 kg 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 TRANSACTIONAL ATTORNEY.RUBBER STAMP DIES INSPECTOR Work Phone: [facility] 01-28-2023 13:48-0400 Respiratory rate 18 /min 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 TRANSACTIONAL ATTORNEY.RUBBER STAMP DIES INSPECTOR Work Phone: [facility] 01-28-2023 13:48-0400 SaO2% (BldA) [Mass fraction] 98 % 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 TRANSACTIONAL ATTORNEY.RUBBER STAMP DIES INSPECTOR Work Phone: [facility] 01-13-2023 14:14-0400 Body temperature 96.69 [degF] Gopal Yanez MD Work Phone: [facility] 01-13-2023 14:14-0400 Body weight 134.72 kg Gopal Yanez MD Work Phone: [facility] 01-13-2023 14:14-0400 Diastolic blood pressure 76 mm[Hg] Gopal Yanez MD Work Phone: [facility] 01-13-2023 14:14-0400 Heart rate 77 /min Gopal Yanez MD Work Phone: [facility] 01-13-2023 14:14-0400 SaO2% (BldA) [Mass fraction] 97 % Gopal Yanez MD Work Phone: [facility] 01-13-2023 14:14-0400 Systolic blood pressure 119 mm[Hg] Gopal Yanez MD Work Phone: [facility] 01-10-2023 11:50-0400 Body temperature 98.29 [degF] Krislyn Aberegg PA Work Phone: [facility] 01-10-2023 11:50-0400 Body weight 133.99 kg Krislyn Aberegg PA Work Phone: [facility] 01-10-2023 11:50-0400 Diastolic blood pressure 64 mm[Hg] Krislyn Aberegg PA Work Phone: [facility] 01-10-2023 11:50-0400 Heart rate 93 /min Krislyn Aberegg PA Work Phone: [facility] 01-10-2023 11:50-0400 Respiratory rate 18 /min Krislyn Aberegg PA Work Phone: [facility] 01-10-2023 11:50-0400 SaO2% (BldA) [Mass fraction] 96 % Krislyn Aberegg PA Work Phone: [facility] 01-10-2023 11:50-0400 Systolic blood pressure 92 mm[Hg] Krislyn Aberegg PA Work Phone: [facility] 12-24-2022 14:43-0400 Body height 188 cm Kera Praisler-Wood TRANSACTIONAL ATTORNEY.HEAD OF ENGLISH Work Phone: [facility] 12-24-2022 14:43-0400 Body temperature 98.91 [degF] Kera Praisler-Wood TRANSACTIONAL ATTORNEY.HEAD OF ENGLISH Work Phone: [facility] 12-24-2022 14:43-0400 Body weight 134.72 kg Kera Praisler-Wood TRANSACTIONAL ATTORNEY.HEAD OF ENGLISH Work Phone: [facility] 12-24-2022 14:43-0400 Diastolic blood pressure 70 mm[Hg] Kera Praisler-Wood TRANSACTIONAL ATTORNEY.HEAD OF ENGLISH Work Phone: [facility] 12-24-2022 14:43-0400 Heart rate 99 /min Kera Praisler-Wood TRANSACTIONAL ATTORNEY.HEAD OF ENGLISH Work Phone: [facility] 12-24-2022 14:43-0400 Respiratory rate 16 /min Kera Praisler-Wood TRANSACTIONAL ATTORNEY.HEAD OF ENGLISH Work Phone: [facility] 12-24-2022 14:43-0400 SaO2% (BldA) [Mass fraction] 97 % Kera Praisler-Wood TRANSACTIONAL ATTORNEY.HEAD OF ENGLISH Work Phone: [facility] 12-24-2022 14:43-0400 Systolic blood pressure 98 mm[Hg] Kera Praisler-Wood TRANSACTIONAL ATTORNEY.HEAD OF ENGLISH Work Phone: [facility] 11-05-2022 11:31-0400 Body height 182.9 cm Pulm Wstr Work Phone: [facility] 11-05-2022 11:31-0400 Body weight 131.09 kg Pulm Wstr Work Phone: [facility] 11-05-2022 11:31-0400 Heart rate 105 /min Pulm Wstr Work Phone: [facility] 11-05-2022 11:31-0400 Respiratory rate 14 /min Pulm Wstr Work Phone: [facility] 11-05-2022 11:31-0400 SaO2% (BldA) [Mass fraction] 100 % Pulm Wstr Work Phone: [facility] 11-04-2022 12:41-0400 Body temperature 98.4 [degF] Rebeca Foley TRANSACTIONAL ATTORNEY.HEAD OF ENGLISH Work Phone: [facility] 11-04-2022 12:41-0400 Body weight 131.72 kg Rebeca Foley TRANSACTIONAL ATTORNEY.HEAD OF ENGLISH Work Phone: [facility] 11-04-2022 12:41-0400 Diastolic blood pressure 86 mm[Hg] Rebeca Foley TRANSACTIONAL ATTORNEY.HEAD OF ENGLISH Work Phone: [facility] 11-04-2022 12:41-0400 Heart rate 89 /min Rebeca Foley TRANSACTIONAL ATTORNEY.HEAD OF ENGLISH Work Phone: [facility] 11-04-2022 12:41-0400 Respiratory rate 21 /min Rebeca Foley TRANSACTIONAL ATTORNEY.HEAD OF ENGLISH Work Phone: [facility] 11-04-2022 12:41-0400 SaO2% (BldA) [Mass fraction] 98 % Rebeca Foley TRANSACTIONAL ATTORNEY.HEAD OF ENGLISH Work Phone: [facility] 11-04-2022 12:41-0400 Systolic blood pressure 120 mm[Hg] Rebeca Foley TRANSACTIONAL ATTORNEY.HEAD OF ENGLISH Work Phone: [facility] 10-28-2022 13:05-0400 Body height 181 cm 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 TRANSACTIONAL ATTORNEY.RUBBER STAMP DIES INSPECTOR Work Phone: [facility] 10-28-2022 13:05-0400 Body weight 132 kg 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 TRANSACTIONAL ATTORNEY.RUBBER STAMP DIES INSPECTOR Work Phone: [facility] 10-28-2022 13:05-0400 Diastolic blood pressure 82 mm[Hg] 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 TRANSACTIONAL ATTORNEY.RUBBER STAMP DIES INSPECTOR Work Phone: [facility] 10-28-2022 13:05-0400 Heart rate 105 /min 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 TRANSACTIONAL ATTORNEY.RUBBER STAMP DIES INSPECTOR Work Phone: [facility] 10-28-2022 13:05-0400 Respiratory rate 16 /min 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 TRANSACTIONAL ATTORNEY.RUBBER STAMP DIES INSPECTOR Work Phone: [facility] 10-28-2022 13:05-0400 SaO2% (BldA) [Mass fraction] 100 % 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 TRANSACTIONAL ATTORNEY.RUBBER STAMP DIES INSPECTOR Work Phone: [facility] 10-28-2022 13:05-0400 Systolic blood pressure 118 mm[Hg] 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 TRANSACTIONAL ATTORNEY.RUBBER STAMP DIES INSPECTOR Work Phone: [facility] 09-30-2022 10:21-0400 Body height 181.6 cm Santi Mcallister MD Work Phone: [facility] 09-30-2022 10:21-0400 Body weight 132.45 kg Santi Mcallister MD Work Phone: [facility] 09-30-2022 10:21-0400 Diastolic blood pressure 80 mm[Hg] Santi Mcallister MD Work Phone: [facility] 09-30-2022 10:21-0400 Heart rate 87 /min Santi Mcallister MD Work Phone: [facility] 09-30-2022 10:21-0400 SaO2% (BldA) [Mass fraction] 99 % Santi Mcallister MD Work Phone: [facility] 09-30-2022 10:21-0400 Systolic blood pressure 110 mm[Hg] Santi Mcallister MD Work Phone: [facility] 09-06-2022 13:07-0500 Body temperature 97.59 [degF] Karlos Jett MD Work Phone: [facility] 09-06-2022 13:07-0500 Body weight 131.54 kg Karlos Jett MD Work Phone: [facility] 09-06-2022 13:07-0500 Diastolic blood pressure 82 mm[Hg] Kalros Jett MD Work Phone: [facility] 09-06-2022 13:07-0500 Heart rate 93 /min Karlos Jett MD Work Phone: [facility] 09-06-2022 13:07-0500 SaO2% (BldA) [Mass fraction] 98 % Karlos Jett MD Work Phone: [facility] 09-06-2022 13:07-0500 Systolic blood pressure 120 mm[Hg] Karlos Jett MD Work Phone: [facility] 09-05-2022 11:05-0500 Body temperature 98.91 [degF] Krislyn Aberegg PA Work Phone: [facility] 09-05-2022 11:05-0500 Body weight 131.36 kg Krislyn Aberegg PA Work Phone: [facility] 09-05-2022 11:05-0500 Diastolic blood pressure 66 mm[Hg] Krislyn Aberegg PA Work Phone: [facility] 09-05-2022 11:05-0500 Heart rate 104 /min Krislyn Aberegg PA Work Phone: [facility] 09-05-2022 11:05-0500 Respiratory rate 18 /min Krislyn Aberegg PA Work Phone: [facility] 09-05-2022 11:05-0500 SaO2% (BldA) [Mass fraction] 98 % Krislyn Aberegg PA Work Phone: [facility] 09-05-2022 11:05-0500 Systolic blood pressure 118 mm[Hg] Krislyn Aberegg PA Work Phone: [facility] 08-22-2022 14:47-0500 Body height 181.6 cm Russell Masci DO Work Phone: [facility] 08-22-2022 14:47-0500 Body temperature 97 [degF] Russell Masci DO Work Phone: [facility] 08-22-2022 14:47-0500 Body weight 130.18 kg Russell Masci DO Work Phone: [facility] 08-22-2022 14:47-0500 Diastolic blood pressure 74 mm[Hg] Russell Masci DO Work Phone: [facility] 08-22-2022 14:47-0500 Heart rate 98 /min Russell Burris DO Work Phone: [facility] 08-22-2022 14:47-0500 SaO2% (BldA) [Mass fraction] 96 % Russell Burris DO Work Phone: [facility] 08-22-2022 14:47-0500 Systolic blood pressure 124 mm[Hg] Russell Burris DO Work Phone: [facility] 08-07-2022 12:58-0500 Body height 180.3 cm Zuleika Chris PA-C Work Phone: [facility] 08-07-2022 12:58-0500 Body weight 132 kg Zuleika Chris PA-C Work Phone: [facility] 08-07-2022 12:58-0500 Diastolic blood pressure 76 mm[Hg] Zuleika Chris PA-C Work Phone: [facility] 08-07-2022 12:58-0500 Heart rate 101 /min Zuleika Chris PA-C Work Phone: [facility] 08-07-2022 12:58-0500 Systolic blood pressure 122 mm[Hg] Zuleika Chris PA-C Work Phone: [facility] 07-09-2022 13:21-0500 Body temperature 98.4 [degF] Arthur Athy PA-C Work Phone: [facility] 07-09-2022 13:21-0500 Body weight 130.05 kg Arthur Athy PA-C Work Phone: [facility] 07-09-2022 13:21-0500 Diastolic blood pressure 72 mm[Hg] Arthur Athy PA-C Work Phone: [facility] 07-09-2022 13:21-0500 Heart rate 115 /min Arthur Athy PA-C Work Phone: [facility] 07-09-2022 13:21-0500 Respiratory rate 18 /min Arthuryasmine Moncaday PA-C Work Phone: [facility] 07-09-2022 13:21-0500 SaO2% (BldA) [Mass fraction] 98 % Arthur Athy PA-C Work Phone: [facility] 07-09-2022 13:21-0500 Systolic blood pressure 124 mm[Hg] Arthuryasmine Moncaday PA-C Work Phone: [facility] 07-05-2022 13:15-0500 SaO2% (BldA) [Mass fraction] 96 % Kelvin Hayes MD Work Phone: [facility] 07-05-2022 13:00-0500 Diastolic blood pressure 75 mm[Hg] Kelvin Hayes MD Work Phone: [facility] 07-05-2022 13:00-0500 Systolic blood pressure 115 mm[Hg] Kelvin Hayes MD Work Phone: [facility] 07-05-2022 11:25-0500 Heart rate 80 /min Kelvin Hayes MD Work Phone: [facility] 07-05-2022 11:17-0500 Respiratory rate 12 /min Kelvin Hayes MD Work Phone: [facility] 07-05-2022 10:21-0500 Body temperature 96.8 [degF] Kelvin Hayes MD Work Phone: [facility] 06-11-2022 13:09-0500 Body temperature 98.71 [degF] Antonio Smalls MD Work Phone: [facility] 06-11-2022 13:09-0500 Body weight 130.82 kg Antonio Smalls MD Work Phone: [facility] 06-11-2022 13:09-0500 Heart rate 96 /min Antonio Smalls MD Work Phone: [facility] 06-11-2022 13:09-0500 Respiratory rate 18 /min Antonio Smalls MD Work Phone: [facility] 06-11-2022 13:09-0500 SaO2% (BldA) [Mass fraction] 98 % Antonio Smalls MD Work Phone: [facility] 05-30-2022 11:12-0500 Body weight 131.09 kg Lorna Day MD Work Phone: [facility] 05-30-2022 11:12-0500 Diastolic blood pressure 78 mm[Hg] Lorna Day MD Work Phone: [facility] 05-30-2022 11:12-0500 Systolic blood pressure 116 mm[Hg] Lorna Day MD Work Phone: [facility] 05-07-2022 13:33-0500 Body height 180.3 cm Annia Hogan TRANSACTIONAL ATTORNEY.HEAD OF ENGLISH Work Phone: [facility] 05-07-2022 13:33-0500 Body weight 132 kg Annia Hogan TRANSACTIONAL ATTORNEY.HEAD OF ENGLISH Work Phone: [facility] 05-07-2022 13:33-0500 Diastolic blood pressure 82 mm[Hg] Annia Hogan TRANSACTIONAL ATTORNEY.HEAD OF ENGLISH Work Phone: [facility] 05-07-2022 13:33-0500 Heart rate 93 /min Annia Hogan TRANSACTIONAL ATTORNEY.HEAD OF ENGLISH Work Phone: [facility] 05-07-2022 13:33-0500 Systolic blood pressure 118 mm[Hg] Annia Hogan TRANSACTIONAL ATTORNEY.HEAD OF ENGLISH Work Phone: [facility] 04-18-2022 15:58-0400 Body temperature 97 [degF] Antonio Smalls MD Work Phone: [facility] 04-18-2022 15:58-0400 Body weight 130.64 kg Antonio Smalls MD Work Phone: [facility] 04-18-2022 15:58-0400 Heart rate 100 /min Antonio Smalls MD Work Phone: [facility] 04-18-2022 15:58-0400 Respiratory rate 20 /min Antonio Smalls MD Work Phone: [facility] 03-29-2022 15:16-0400 Body weight 130.64 kg Lorna Day MD Work Phone: [facility] 03-29-2022 15:16-0400 Diastolic blood pressure 78 mm[Hg] Lorna Day MD Work Phone: [facility] 03-29-2022 15:16-0400 Systolic blood pressure 116 mm[Hg] Lorna Day MD Work Phone: [facility] 03-12-2022 13:35-0400 Body height 182.5 cm Antonio Smalls MD Work Phone: [facility] 03-12-2022 13:35-0400 Body temperature 97.59 [degF] Antonio Smalls MD Work Phone: [facility] 03-12-2022 13:35-0400 Body weight 129.96 kg Antonio Smalls MD Work Phone: [facility] 03-12-2022 13:35-0400 Diastolic blood pressure 92 mm[Hg] Antonio Smalls MD Work Phone: [facility] 03-12-2022 13:35-0400 Heart rate 100 /min Antonio Smalls MD Work Phone: [facility] 03-12-2022 13:35-0400 Respiratory rate 20 /min Antonio Smalls MD Work Phone: [facility] 03-12-2022 13:35-0400 Systolic blood pressure 118 mm[Hg] Antonio Smalls MD Work Phone: [facility] 02-27-2022 14:56-0400 Body temperature 98.71 [degF] Kera Joseph APRN.HEAD OF ENGLISH Work Phone: [facility] 02-27-2022 14:56-0400 Body weight 130.36 kg Kera Joseph APRN.HEAD OF ENGLISH Work Phone: [facility] 02-27-2022 14:56-0400 Diastolic blood pressure 86 mm[Hg] Kera Praisler-Wood TRANSACTIONAL ATTORNEY.HEAD OF ENGLISH Work Phone: [facility] 02-27-2022 14:56-0400 Heart rate 98 /min Kera Praisler-Wood TRANSACTIONAL ATTORNEY.HEAD OF ENGLISH Work Phone: [facility] 02-27-2022 14:56-0400 Respiratory rate 21 /min Kera Praisler-Wood TRANSACTIONAL ATTORNEY.HEAD OF ENGLISH Work Phone: [facility] 02-27-2022 14:56-0400 SaO2% (BldA) [Mass fraction] 99 % Kera Praisler-Wood TRANSACTIONAL ATTORNEY.HEAD OF ENGLISH Work Phone: [facility] 02-27-2022 14:56-0400 Systolic blood pressure 114 mm[Hg] Kera Praisler-Wood TRANSACTIONAL ATTORNEY.[facility] Work Phone: [facility] 02-20-2022 18:09-0400 Body temperature 99 [degF] Kera Praisler-Wood TRANSACTIONAL ATTORNEY.HEAD OF ENGLISH Work Phone: [facility] 02-20-2022 18:09-0400 Body weight 129.82 kg Kera Praisler-Wood TRANSACTIONAL ATTORNEY.[facility] Work Phone: [facility] 02-20-2022 18:09-0400 Diastolic blood pressure 90 mm[Hg] Kera Praisler-Wood TRANSACTIONAL ATTORNEY.HEAD OF ENGLISH Work Phone: [facility] 02-20-2022 18:09-0400 Heart rate 108 /min Kera Praisler-Wood TRANSACTIONAL ATTORNEY.HEAD OF ENGLISH Work Phone: [facility] 02-20-2022 18:09-0400 Respiratory rate 21 /min Kera Praisler-Wood TRANSACTIONAL ATTORNEY.HEAD OF ENGLISH Work Phone: [facility] 02-20-2022 18:09-0400 SaO2% (BldA) [Mass fraction] 100 % Kera Praisler-Wood TRANSACTIONAL ATTORNEY.HEAD OF ENGLISH Work Phone: [facility] 02-20-2022 18:09-0400 Systolic blood pressure 118 mm[Hg] Kera Praisler-Wood TRANSACTIONAL ATTORNEY.HEAD OF ENGLISH Work Phone: [facility] Encounters Encounter Date Encounter Type Care Provider Facility Start: 07-16-2023 End: 07-16-2023 ambulatory [facility] Facility:[facility] Start: 07-15-2023 End: 07-16-2023 ambulatory [facility] Facility:[facility] Start: 06-06-2023 End: 06-07-2023 ambulatory [facility] Facility:[facility] Start: 06-06-2023 End: 06-06-2023 Office outpatient visit 25 minutes Kate Silva MD Work Phone: [facility] [place] Procedures Date Procedure Procedure Detail Performing Clinician Start: 06-06-2023 INFLUENZA VACCINE, AGE 6 MO - 64 YR, QUADRIVALENT (AFLURIA, FLULAVAL, FLUZONE) Kate Silva MD Work Phone: Start: 04-28-2023 End: 04-28-2023 Us abdominal real time w/image limited Zuleika Cross PA-C Work Phone: Start: 04-17-2023 Us transvaginal Kelly Nunez TRANSACTIONAL ATTORNEY.CNM Work Phone: Start: 12-24-2022 STREP A MOLECULAR (POC) Kera park TRANSACTIONAL ATTORNEY.HEAD OF ENGLISH Work Phone: Start: 11-05-2022 Brncdilat rspse spmtry pre&post-brncdilat admn 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 TRANSACTIONAL ATTORNEY.RUBBER STAMP DIES INSPECTOR Work Phone: Start: 10-18-2022 Echocardiography ANTONIO PLAYL Start: 09-05-2022 STREP A MOLECULAR (POC) Aria BURGESS Work Phone: Start: 07-09-2022 COVID WITH FLUA+B, ROUTINE Arthur R Athy P A-C Work Phone: Start: 07-05-2022 US IMAGING GUIDED BIOPSY LIVER Zuleika Perez PA-C Work Phone: Start: 04-29-2022 Us abdominal real time w/image limited Antonio Smalls MD Work Phone: Start: 03-12-2022 MENINGOCOCCAL GROUP B VACCINE 2 DOSE Antonio Smalls MD Work Phone: Start: 03-12-2022 INFLUENZA VACCINE QUADRIVALENT 6 MO - 64 YRS IM Antonio Smalls MD Work Phone: Start: 02-27-2022 Urnls dip stick/tablet rgnt auto w/o microscopy Keeley Severino TRANSACTIONAL ATTORNEY.HEAD OF ENGLISH Work Phone: Start: 09-08-2018 Adult depression screening assessment Antonio Smalls MD Work Phone: Laboratory test resu lt abnormal Abnormal laboratory test Antonio Smalls MD Work Phone: Laboratory test resu lt abnormal Abnormal laboratory test Antonio Smalls MD Work Phone: Laboratory test resu lt abnormal Abnormal laboratory test Antonio Smalls MD Work Phone: Laboratory test resu lt abnormal Abnormal laboratory test Annia Hogan TRANSACTIONAL ATTORNEY.HEAD OF ENGLISH Work Phone: Laboratory test resu lt abnormal Abnormal laboratory test 1 Work Phone: Plan of Treatment Date Care Activity Detail Author Start: 06-06-2024 Covid-19 Vaccine (#1) Covid-19 Vacci ne (#1) [facility] Immunizations Immunization Date Immunization Notes Care Provider [facility] 06-06-2023 influenza, injectabl e, quadrivalent, contains preservative Kate Silva MD Work Phone: [facility] 10-28-2022 hepatitis B vaccine, adult dosage 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 TRANSACTIONAL ATTORNEY.RUBBER STAMP DIES INSPECTOR Work Phone: [facility] Work Phone: 03-12-2022 influenza, injectabl e, quadrivalent, contains preservative Antonio Smalls MD Work Phone: [facility] 03-12-2022 meningococcal B vacc ine, recombinant, OMV, adjuvanted Antonio Smalls MD Work Phone: [facility] 03-12-2022 influenza virus vacc ine, unspecified formulation Sher Hollingsworth APRN.CNP Work Phone: [facility] 04-13-2019 influenza, injectabl e, quadrivalent, preservative free Antonio Smalls MD Work Phone: [facility] 03-25-2018 influenza, injectabl e, quadrivalent, contains preservative Antonio Smalls MD Work Phone: [facility] Work Phone: 09-16-2017 influenza, injectabl e, quadrivalent, contains preservative Anotnio Smalls MD Work Phone: [facility] Work Phone: 07-02-2016 influenza, injectabl e, quadrivalent, preservative free Antonio Smalls MD Work Phone: [facility] Work Phone: 01-23-2016 poliovirus vaccine, inactivated Antonio Smalls MD Work Phone: [facility] 05-04-2015 influenza, injectabl e, quadrivalent, contains preservative Antonio Smalls MD Work Phone: [facility] Work Phone: 05-04-2015 meningococcal polysaccharide (groups A, C, Y and W-135) diphtheria toxoid conjugate vaccine (MCV4P) Antonio Smalls MD Work Phone: [facility] Work Phone: 04-08-2014 influenza, live, intranasal, quadrivalent Antonio Smalls MD Work Phone: [facility] Work Phone: 01-14-2014 human papilloma viru s vaccine, quadrivalent Antonio Smalls MD Work Phone: [facility] 09-24-2013 hepatitis A vaccine, pediatric/adolescent dosage, 2 dose schedule Antonio Smalls MD Work Phone: [facility] 09-24-2013 human papilloma viru s vaccine, quadrivalent Antonio Smalls MD Work Phone: [facility] 02-11-2012 hepatitis A vaccine, unspecified formulation Antonio Smalls MD Work Phone: [facility] 02-11-2012 human papilloma viru s vaccine, quadrivalent Antonio Smalls MD Work Phone: [facility] 02-11-2012 varicella virus vaccine Tom Smalls MD Work Phone: [facility] 03-20-2010 Meningococcal, MCV4, unspecified conjugate formulation(groups A, C, Y and W-135) Antonio Smalls MD Work Phone: [facility] 03-20-2010 tetanus toxoid, redu huy diphtheria toxoid, and acellular pertussis vaccine, adsorbed Antonio Smalls MD Work Phone: [facility] 03-14-2004 diphtheria, tetanus toxoids and acellular pertussis vaccine Antonio Smalls MD Work Phone: [facility] Work Phone: 03-14-2004 measles, mumps and rubella virus vaccine Antonio Smalls MD Work Phone: [facility] Work Phone: 04-04-2000 diphtheria, tetanus toxoids and acellular pertussis vaccine Antonio Smalls MD Work Phone: [facility] Work Phone: 04-04-2000 haemophilus influenz ae type b vaccine, HbOC conjugate Antonio Smalls MD Work Phone: [facility] Work Phone: 04-04-2000 measles, mumps and rubella virus vaccine Antonio Smalls MD Work Phone: [facility] Work Phone: 04-04-2000 poliovirus vaccine, inactivated Antonio Smalls MD Work Phone: [facility] Work Phone: 12-14-1999 varicella virus vaccine Tom Smalls MD Work Phone: [facility] Work Phone: 11-13-1999 poliovirus vaccine, inactivated Antonio Smalls MD Work Phone: [facility] Work Phone: 07-02-1999 diphtheria, tetanus toxoids and acellular pertussis vaccine Antonio Samlls MD Work Phone: [facility] Work Phone: 07-02-1999 haemophilus influenz ae type b vaccine, HbOC conjugate Antonio Smalls MD Work Phone: [facility] Work Phone: 07-02-1999 poliovirus vaccine, inactivated Antonio Smalls MD Work Phone: [facility] Work Phone: 04-30-1999 diphtheria, tetanus toxoids and acellular pertussis vaccine Antonio Smalls MD Work Phone: [facility] Work Phone: 04-30-1999 haemophilus influenz ae type b vaccine, HbOC conjugate Antonio Smalls MD Work Phone: [facility] Work Phone: 04-30-1999 hepatitis B vaccine, pediatric or pediatric/adolescent dosage Antonio Smalls MD Work Phone: [facility] Work Phone: 04-30-1999 poliovirus vaccine, inactivated Antonio Smalls MD Work Phone: [facility] Work Phone: 04-30-1999 hepatitis B vaccine, unspecified formulation Kera Joseph APRN.CNP Work Phone: [facility] 03-06-1999 diphtheria, tetanus toxoids and acellular pertussis vaccine Antonio Smalls MD Work Phone: [facility] Work Phone: 03-06-1999 haemophilus influenz ae type b vaccine, HbOC conjugate Antonio Smalls MD Work Phone: [facility] Work Phone: 03-06-1999 hepatitis B vaccine, pediatric or pediatric/adolescent dosage Antonio Smalls MD Work Phone: [facility] Work Phone: 03-06-1999 poliovirus vaccine, inactivated Antonio Smalls MD Work Phone: [facility] Work Phone: 01-01-1999 hepatitis B vaccine, pediatric or pediatric/adolescent dosage Antonio Smalls MD Work Phone: [facility] Work Phone: Payers Date Payer Category Payer Medicaid [id number] 2021 Worker's Compensation [id number] 2015 Medicaid [id number] 2015 Medicaid [employer] [facility] [id number] 2015-Present [phone] [address] [place] [address] Medicaid [id number] 2015 Medicaid [id number] Social History Date Type Detail Facility Start: 12-05-2020 End: 02-20-2022 Tobacco smoking status DEIS Occasional tobacco smoker [facility] Start: 12-05-2020 End: 08-22-2022 Tobacco use and exposure Smokeless tobacco non-user [facility] Start: 09-11-2021 End: 04-18-2022 Alcohol intake Current drinker of alcohol (finding) [facility] Start: 12-05-2020 History SDOH Alcohol Comment occasional [facility] Start: 2000 Sex Assigned At Female C [facility] Start: 09-01-2021 End: 05-30-2022 Exposure to SARS-CoV-2 (event) Not sure [facility] Start: 12-25-2021 End: 01-04-2022 Exposure to SARS-CoV-2 (event) Unable to assess [facility] Start: 05-07-2022 End: 08-22-2022 Tobacco smoking status NHIS Ex-smoker [facility] End: 06-30-2021 History of tobacco use Current smoker [facility] End: 06-30-2021 History of tobacco use Cigarette Smoker [facility] Start: 05-07-2022 End: 06-06-2023 Alcohol intake Ex-drinker (finding) [facility] Start: 08-22-2022 Tobacco Comment Pt smoked 3 ci garettes daily x 2 months, quit 2021 [facility] Start: 11-08-2022 End: 12-24-2022 History of Social function [facility] Start: 11-08-2022 End: 12-24-2022 Tobacco use panel [facility] Adult Depression Scr eening Assessment 0 [facility] Start: 11-28-2020 Gender identity Identifies as female gender (finding) [facility] Start: 11-28-2020 Sexual orientation Choose not to dis close [facility] Medical Equipment Procedure Code Equipment Code Equipment Origin al Text Equipment Identifier Dates Gas Io Isthony Vsn Sys [id number] - [id number] Start: 05-12-2015 Clinical Notes 11-19-2012 to 06-06-2023 Patient InstructionsKate Silva MD - 06/06/2023 4:20 PM ESTTelephone Encounter - Kate Silva MD - 05/19/2023 7:27 PM ESTTelephone Encounter - Cookie Scales OCCA - 05/19/2023 9:09 AM EST Note Date & Type Note Facility 06-06-2023 Note [facility] 06-06-2023 Instructions Kate Silva MD - 06/06/2023 4:29 PM EST Start Paxil (paroxetine) at half pill daily for 1 to 2 weeks then increase to whole tablet as needed as tolerated. If after 1 month the 20 mg is not adequate, we can increase dose to either 30 or 40 mg daily. documented in this encounter [facility] 06-06-2023 History of Present illness Narrative This note was created using Open Englishriter. Subjective Katie Forde is a 22 year old female. HISTORY Katie Forde is a 22 year old lady here to be formally established with me. Meds had helped for depression but wanted to see if could go without med. CPAP used nightly and benefits from use most night except when away from home. [employer]. Neck pain past 2 months. No obvious triggers. Muscles are tight.SCM both sides. Could be from positional with using phone. GERD--controlled with PPI. Symptoms will come back if misses a dose. See assessment and plan for other issues addressed. PAST MEDICAL HISTORY Diagnosis Date ADHD (attention deficit hyperactivity disorder) Fatty liver GERD (gastroesophageal reflux disease) Marfan's syndrome VIR[facility]ART[facility] NOS 06/25/2008 resolved Current Outpatient Medications Medication Sig amphetamine-dextroamphetamine XR (ADDERALL XR) 30 mg capsule Take 1 capsule by mouth every morning for 30 days. methylphenidate (RITALIN) 20 mg tablet Take 1 tablet by mouth as needed for up to 30 days. Take at approx. 3-4 pm. CPAP/BIPAP/OTHER Type .CPAPSettings into a note to see current settings/supplies/DME information. topiramate (TOPAMAX) 50 mg tablet Take 1 tablet by mouth once daily. omeprazole (PRILOSEC) 20 mg capsule Take 1 capsule by mouth once daily. amphetamine-dextroamphetamine XR (ADDERALL XR) 30 mg capsule Take 1 capsule by mouth every morning for 30 days. Do not start before May 15, 2023. (Patient not taking: Reported on 04/22/2023 Do not start before May 15, 2023.) methylphenidate (RITALIN) 20 mg tablet Take 1 tablet by mouth as needed for up to 30 days. Take at approx. 3-4 pm. Do not start before May 15, 2023. (Patient not taking: Reported on 04/22/2023) PNV No.40-Iron Fum-FA Cmb No.1 (PNV-SELECT) 27-1 mg tab Take 1 tablet by mouth once daily. (Patient not taking: Reported on 06/06/2023) medroxyPROGESTERone (PROVERA) 10 mg tablet Take 1 tablet by mouth once daily. for the -10th of each month (Patient not taking: Reported on 04/22/2023) Current Facility-Administered Medications Medication Dose Route Frequency perflutren lipid microspheres 1.3 mL in NaCl (PF) 0.9% 10 mL injection (DEFINITY) INTRAVENOUS DIRECTED PRN sodium chloride 0.9 % (flush) 10 mL (BD POSIFLUSH) 10 mL INTRAVENOUS DIRECTED PRN ALLERGIES No Known Allergies PAST SURGICAL HISTORY Procedure Laterality Date DDI VIBRATION CONTROLLED TRANSIENT ELASTOGRAPHY (VCTE) 06/10/2022 Fibrosis stage F3-F4 and steatosis grade of S3 EYE SURGERY HX 05/02/2015 detached retina EYE SURGERY HX 08/19/2018 right sided secondary lens implant LIVER BIOPSY 07/05/2022 PAST SURGICAL HISTORY OF sherwin eyes PAST SURGICAL HISTORY OF right leg broken-surgery FAMILY HISTORY Problem Relation Age of Onset other (Marfan's) Mother None Father other (Marfan's) Brother other (mood issues) Brother Osteoporosis Maternal Grandmother other (Marfan's) Maternal Grandfather None Paternal Grandmother Heart Paternal Grandfather pace maker No Ocular Disease Other Social History Tobacco Use Smoking status: Former Types: Cigarettes Quit date: 2021 Years since quittin.9 Smokeless tobacco: Never Tobacco comments: Pt smoked 3 cigarettes daily x 2 months, quit 2021 Vaping Use Vaping Use: current everyday user Substances: Nicotine, Flavoring Devices: Pre-filled or refillable cartridge Substance Use Topics Alcohol use: Not Currently Comment: occasional Drug use: No Review of Systems Psychiatric/Behavioral: Positive for decreased concentration (Sometimes), dysphoric mood and sleep disturbance (Better since on CPAP). Negative for suicidal ideas. The patient is nervous/anxious (Was betterr when treatd for depression) and is hyperactive (Treated by plc programmer; current meds effective). Objective BP 112/72 Pulse 108 Temp 36.4 C (97.5 F) Resp 18 Ht 183.5 cm (6' 0.24 ) Wt (!) 138.3 kg (305 lb) LMP 05/18/2023 (Exact Date) SpO2 99% BMI 41.09 kg/m Last 5 Encounter Wt Readings: Date: Wt: 06/06/2023 138.3 kg (305 lb) 05/14/2023 138.5 kg (305 lb 6.4 oz) 04/22/2023 138.9 kg (306 lb 4.8 oz) 04/09/2023 138.5 kg (305 lb 6.4 oz) 03/20/2023 135.4 kg (298 lb 9.6 oz) No waist measurement recorded Estimated body mass index is 41.09 kg/m as calculated from the following: Height as of this encounter: 183.5 cm (6' 0.24 ). Weight as of this encounter: 138.3 kg (305 lb). Last 5 Encounter BP Readings: Date: BP: 06/06/2023 112/72 05/14/2023 118/68 04/22/2023 112/74 04/09/2023 118/80 03/20/2023 102/76 Physical Exam Vitals reviewed. Constitutional: Appearance: She is well-developed. HENT: Head: Normocephalic and atraumatic. Right Ear: External ear normal. Left Ear: External ear normal. Nose: Nose normal. Eyes: Conjunctiva/sclera: Conjunctivae normal. Neck: Thyroid: No thyromegaly. Cardiovascular: Rate and Rhythm: Normal rate and regular rhythm. Pulses: Normal pulses. Heart sounds: Normal heart sounds. No murmur heard. No friction rub. No gallop. Pulmonary: Effort: Pulmonary effort is normal. Breath sounds: Normal breath sounds. Abdominal: General: Bowel sounds are normal. There is no distension. Palpations: Abdomen is soft. There is no mass. Tenderness: There is no abdominal tenderness. Musculoskeletal: General: No deformity. Normal range of motion. Cervical back: Normal range of motion. Pain with movement (Pain in SCM areas with ROM) present. Lymphadenopathy: Cervical: No cervical adenopathy. Skin: General: Skin is warm and dry. Coloration: Skin is not jaundiced or pale. Findings: No rash. Neurological: General: No focal deficit present. Mental Status: She is alert and oriented to person, place, and time. Cranial Nerves: No cranial nerve deficit. Sensory: No sensory deficit. Motor: No abnormal muscle tone. Coordination: Coordination normal. Deep Tendon Reflexes: Reflexes normal. Psychiatric: Mood and Affect: Mood normal. Behavior: Behavior normal. Thought Content: Thought content normal. Judgment: Judgment normal. Reviewed prior labs. Noted has follow up with hematology and GI. Assessment and Plan Encounter Diagnosis ICD-10-CM 1. Attention deficit hyperactivity disorder (ADHD), combined type F90.2 methylphenidate (RITALIN) 20 mg tablet amphetamine-dextroamphetamine XR (ADDERALL XR) 30 mg capsule methylphenidate (RITALIN) 20 mg tablet methylphenidate (RITALIN) 20 mg tablet amphetamine-dextroamphetamine XR (ADDERALL XR) 30 mg capsule amphetamine-dextroamphetamine XR (ADDERALL XR) 30 mg capsule 2. Neck pain M54.2 Appears to be positional issue with using phone.Discussed stretching and changing how she holds head while on phone 3. ESTEBAN on CPAP G47.33 4. Class 3 severe obesity due to excess calories with body mass index (BMI) of 40.0 to 44.9 in adult, unspecified whether serious comorbidity present (HCC) E66.01 Z68.41 Needs to keep working on healhtier diet and regular exercise. 5. Moderate episode of recurrent major depressive disorder (HCC) F33.1 Stable with present management. 6. Encounter for immunization Z23 INFLUENZA VACCINE, AGE 6 MO - 64 YR, QUADRIVALENT (AFLURIA, FLULAVAL, FLUZONE) Above issues addressed with patient. Patient involved in shared decision making for management of medical issues. History and medications reviewed. Epic updated as needed Refills and/or prescriptions taken care of and meds adjusted as indicated after reviewed history, exam and labs. Health Maintenance reviewed. Updated record and/or ordered tests as recorded. Encouraged on efforts at healthy diet and regular exercise and adequate sleep. Stable with control of ADHD. At this time benefits outweigh risks. Continue to monitor for adverse effects and indications for decreasing dose or tapering off. No signs of diversion or abuse of medication(s); no adverse effects. Continue present management. Kate Silva MD documented in this encounter [facility] 05-19-2023 Miscellaneous Notes The following approved medication requests have been transmitted electronically. Requested Prescriptions Signed Prescriptions Disp Refills amphetamine-dextroamphetamine XR (ADDERALL XR) 30 mg capsule 30 capsule 0 Sig: Take 1 capsule by mouth every morning for 30 days. Authorizing Provider: KATE SILVA methylphenidate (RITALIN) 20 mg tablet 30 tablet 0 Sig: Take 1 tablet by mouth as needed for up to 30 days. Take at approx. 3-4 pm. Authorizing Provider: KATE SILVA MD Patient has been identified by name and date of : Yes Patient phones for refill(s): Requested Prescriptions Pending Prescriptions Disp Refills amphetamine-dextroamphetamine XR (ADDERALL XR) 30 mg capsule 30 capsule 0 Sig: Take 1 capsule by mouth every morning for 30 days. methylphenidate (RITALIN) 20 mg tablet 30 tablet 0 Sig: Take 1 tablet by mouth as needed for up to 30 days. Take at approx. 3-4 pm. Date of last office visit in primary care: 01/28/2023 Date of next office visit in primary care: 06/06/2023 Last 2 Encounter Wt Readings: Date: Wt: 05/14/2023 138.5 kg (305 lb 6.4 oz) 04/22/2023 138.9 kg (306 lb 4.8 oz) Please advise. Thank you. NARA Rooney. documented in this encounter [facility] 05-15-2023 Miscellaneous Notes Spoke with patient. Offered vaginal suppository. Declines. Will proceed with x 1 Diflucan that was called in. Discussed PROS/CONS of medicines. Encouraged patient to follow up with [facility] Spoke with pt and information listed below given. Pt verbalizes understanding. Pt has a question. She has heart problems and wanted to make sure this does not cause cardiac arrest. At apt pt was told she should not be taking a lot of a certain pill because it can cause cardiac arrest. Pt not sure on which pill she was advised on regarding above. Please advised pt. Janny Montoya LPN Left message for pt to call back. Farida Richardson MA Please notify that only positive on lab was yeast, diflucan sent to pharmacy. F/u with pcp or ob if s/s persist. documented in this encounter [facility] 05-14-2023 Note [facility] 05-14-2023 History of Present illness Narrative CC: Patient presents with: Vaginal Problem: Irritation for 1 month. HPI Katie Forde is a 22 year old female who presents with complaint of possible UTI. These symptoms have been present for 30 days. Associated symptoms: burning and vaginal odor Denies: fever, chills, sweats, and abdominal pain Treatments: nothing The ROS was otherwise negative. PMH, Medications, labs, allergies, and recent past visits with PCP were reviewed and updated as able. PHYSICAL EXAM: BP 118/68 Pulse 103 Temp 36.8 C (98.2 F) Resp 16 Wt (!) 138.5 kg (305 lb 6.4 oz) LMP 04/17/2023 SpO2 98% BMI 39.21 kg/m General: Well appearing and alert Back: straight and symmetric Physical Exam Exam conducted with a engraver rubber present. Constitutional: Appearance: Normal appearance. Pulmonary: Effort: Pulmonary effort is normal. Genitourinary: Comments: Significant vaginal discharge Neurological: Mental Status: She is alert. 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 MEDICATIONS amphetamine-dextroamphetamine XR (ADDERALL XR) 30 mg capsule^Take 1 capsule by mouth every morning for 30 days.^Disp: 30 capsule^Rfl: 0 methylphenidate (RITALIN) 20 mg tablet^Take 1 tablet by mouth as needed for up to 30 days. Take at approx. 3-4 pm.^Disp: 30 tablet^Rfl: 0 CPAP/BIPAP/OTHER^Type .CPAPSettings into a note to see current settings/supplies/DME information.^Disp: 1 Each^Rfl: 0 topiramate (TOPAMAX) 50 mg tablet^Take 1 tablet by mouth once daily.^Disp: 30 tablet^Rfl: 11 omeprazole (PRILOSEC) 20 mg capsule^Take 1 capsule by mouth once daily.^Disp: 30 capsule^Rfl: 11 PNV No.40-Iron Fum-FA Cmb No.1 (PNV-SELECT) 27-1 mg tab^Take 1 tablet by mouth once daily.^Disp: 30 tablet^Rfl: 12 [START ON 05/15/2023] amphetamine-dextroamphetamine XR (ADDERALL XR) 30 mg capsule^Take 1 capsule by mouth every morning for 30 days. Do not start before May 15, 2023.^Disp: 30 capsule^Rfl: 0 (Patient not taking: Reported on 04/22/2023 Do not start before May 15, 2023.) [START ON 05/15/2023] methylphenidate (RITALIN) 20 mg tablet^Take 1 tablet by mouth as needed for up to 30 days. Take at approx. 3-4 pm. Do not start before May 15, 2023.^Disp: 30 tablet^Rfl: 0 (Patient not taking: Reported on 04/22/2023 Do not start before May 15, 2023.) medroxyPROGESTERone (PROVERA) 10 mg tablet^Take 1 tablet by mouth once daily. for the -10th of each month^Disp: 10 tablet^Rfl: 11 (Patient not taking: Reported on 04/22/2023) FAMILY HISTORY Problem Relation Age of Onset other (Marfan's) Mother None Father other (Marfan's) Brother other (mood issues) Brother Osteoporosis Maternal Grandmother other (Marfan's) Maternal Grandfather None Paternal Grandmother Heart Paternal Grandfather pace maker No Ocular Disease Other Social History Tobacco Use Smoking status: Former Types: Cigarettes Quit date: 2021 Years since quittin.8 Smokeless tobacco: Never Tobacco comments: Pt smoked 3 cigarettes daily x 2 months, quit 2021 Vaping Use Vaping Use: current everyday user Substances: Nicotine, Flavoring Devices: Pre-filled or refillable cartridge Substance Use Topics Alcohol use: Not Currently Comment: occasional Drug use: No ASSESSMENT/PLAN: 1. Vaginal odor - ICD9: 625.8, ICD10: N89.8 - BACTERIAL VAGINOSIS NAAT - YEIMY/TRICHOMONAS NAAT - GONORRHEA/CHLAMYDIA NAAT No treatment at this time. Potential red flag symptoms discussed with the patient. Reviewed appropriate action plan to take if red flag symptoms occur. Patient agreeable to treatment plan. Marielena West APRN.MERLIN documented in this encounter [facility] 04-28-2023 Note [facility] 04-28-2023 History of Present illness Narrative Radiology Service Progress Note PATIENT NAME: Katie Forde DATE OF SERVICE: April 28, 2023 TIME: 1:58 PM PATIENT IDENTITY VERIFICATION COMPLETED USING TWO (2) IDENTIFIERS: Name and Date of confirmed by patient verbally. FALL SCREENING: Has the patient had 2 falls in the last year or 1 fall with injury or currently using an Ambulatory Assistive Device (Walker, Cane, Wheelchair, Crutches, etc.)? No PATIENT GENDER DATA: Female. status: : No status: NO. PATIENT RELEVANT IMPLANT DATA REVIEWED: Not Applicable RADIOLOGY DEPARTMENT: Ultrasound PERIPHERAL IV DATA: Not applicable SIGNED BY: Rebeca Chinchilla RDMS RVT April 28, 2023 1:58 PM documented in this encounter [facility] 04-22-2023 Note [facility] 04-22-2023 Instructions Zuleika Cross PA-C - 04/22/2023 10:26 AM EDT - Start over there counter probiotic with at least 15 billion live cultures, 10+ strains - Drink around 64 oz water daily - Benefiber daily: 2 teaspoons added to 8 ounces of water up to 3 times daily. documented in this encounter [facility] 04-22-2023 History of Present illness Narrative CHIEF COMPLAINT: Patient presents with: Recheck: Fatty Liver HPI Katie Forde is a 22 year old female here today for Recheck (Fatty Liver ) PMHx of migraine, Marfan's syndrome, depression, anxiety Father is present today. Patient tells me that she is doing well today. Notes her GERD is under control on Prilosec 20 mg. When she forgets her medications, her symptoms returns. Denies dysphagia, nausea, vomiting. Rare abdominal pain. Notes that's she is getting diarrhea often, worse with greasy foods. No rectal bleeding. Last OV with me 08/07/2022: Assessment/Plan (K76.0) Fatty liver (primary encounter diagnosis) (R53.81, R53.83) Malaise and fatigue 1. Fatty liver -- Discussed liver testing and liver biopsy in detail with patient today. Showing fatty liver disease however biopsy are not adequate. -- Patient declines a re-biopsy today. -- Discussed fatty liver including healthy diet, weight loss, exercise -- Will recheck HFP - HEPATIC FUNCTION PNL; Future - CBC + DIFF; Future - VITAMIN D 25 HYDROXY; Future - VITAMIN B12 BLOOD; Future - TSH BLD; Future - IRON + TIBC; Future 2. Malaise and fatigue -- Notes significant fatigue -- Will check CBC, HFP, Vit D, Vit B12, TSH, Iron - HEPATIC FUNCTION PNL; Future - CBC + DIFF; Future - VITAMIN D 25 HYDROXY; Future - VITAMIN B12 BLOOD; Future - TSH BLD; Future - IRON + TIBC; Future Follow up in office 6 months/PRN. Current Outpatient Medications Medication Sig amphetamine-dextroamphetamine XR (ADDERALL XR) 30 mg capsule Take 1 capsule by mouth every morning for 30 days. methylphenidate (RITALIN) 20 mg tablet Take 1 tablet by mouth as needed for up to 30 days. Take at approx. 3-4 pm. CPAP/BIPAP/OTHER Type .CPAPSettings into a note to see current settings/supplies/DME information. topiramate (TOPAMAX) 50 mg tablet Take 1 tablet by mouth once daily. omeprazole (PRILOSEC) 20 mg capsule Take 1 capsule by mouth once daily. PNV No.40-Iron Fum-FA Cmb No.1 (PNV-SELECT) 27-1 mg tab Take 1 tablet by mouth once daily. [START ON 05/15/2023] amphetamine-dextroamphetamine XR (ADDERALL XR) 30 mg capsule Take 1 capsule by mouth every morning for 30 days. Do not start before May 15, 2023. (Patient not taking: Reported on 04/22/2023 Do not start before May 15, 2023.) [START ON 05/15/2023] methylphenidate (RITALIN) 20 mg tablet Take 1 tablet by mouth as needed for up to 30 days. Take at approx. 3-4 pm. Do not start before May 15, 2023. (Patient not taking: Reported on 04/22/2023 Do not start before May 15, 2023.) medroxyPROGESTERone (PROVERA) 10 mg tablet Take 1 tablet by mouth once daily. for the - of each month (Patient not taking: Reported on 04/22/2023) Current Facility-Administered Medications Medication Dose Route Frequency perflutren lipid microspheres 1.3 mL in NaCl (PF) 0.9% 10 mL injection (DEFINITY) INTRAVENOUS DIRECTED PRN sodium chloride 0.9 % (flush) 10 mL (BD POSIFLUSH) 10 mL INTRAVENOUS DIRECTED PRN ALLERGIES No Known Allergies Social History Tobacco Use Smoking status: Former Types: Cigarettes Quit date: 2021 Years since quittin.8 Smokeless tobacco: Never Tobacco comments: Pt smoked 3 cigarettes daily x 2 months, quit 2021 Vaping Use Vaping Use: current everyday user Substances: Nicotine, Flavoring Devices: Pre-filled or refillable cartridge Substance Use Topics Alcohol use: Not Currently Comment: occasional Drug use: No 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 EYE SURGERY HX 05/02/2015 detached retina EYE SURGERY HX 08/19/2018 right sided secondary lens implant LIVER BIOPSY 07/05/2022 PAST SURGICAL HISTORY OF sherwin eyes PAST SURGICAL HISTORY OF right leg broken-surgery FAMILY HISTORY Problem Relation Age of Onset other (Marfan's) Mother None Father other (Marfan's) Brother other (mood issues) Brother Osteoporosis Maternal Grandmother other (Marfan's) Maternal Grandfather None Paternal Grandmother Heart Paternal Grandfather pace maker No Ocular Disease Other REVIEW OF SYSTEMS Review of Systems Respiratory: Positive for apnea. All other systems reviewed and are negative. PHYSICAL EXAM BP 112/74 Pulse 102 Ht 6' 2 (1.88m) Wt 306 lb 4.8 oz (138.9kg) LMP 01/17/2023 BMI 39.31 kg/(m^2). Physical Exam Constitutional: Appearance: Normal appearance. She is obese. HENT: Head: Normocephalic and atraumatic. Eyes: General: No scleral icterus. Extraocular Movements: Extraocular movements intact. Conjunctiva/sclera: Conjunctivae normal. Pupils: Pupils are equal, round, and reactive to light. Cardiovascular: Rate and Rhythm: Normal rate and regular rhythm. Pulses: Normal pulses. Heart sounds: Normal heart sounds. Pulmonary: Effort: Pulmonary effort is normal. Breath sounds: Normal breath sounds. Abdominal: General: Abdomen is flat. Bowel sounds are normal. Palpations: Abdomen is soft. Tenderness: There is no abdominal tenderness. Musculoskeletal: General: Normal range of motion. Cervical back: Normal range of motion and neck supple. Skin: General: Skin is warm and dry. Coloration: Skin is not jaundiced. Neurological: General: No focal deficit present. Mental Status: She is alert and oriented to person, place, and time. Psychiatric: Mood and Affect: Mood normal. Behavior: Behavior normal. Thought Content: Thought content normal. Judgment: Judgment normal. Assessment/Plan (K76.0) Fatty liver (primary encounter diagnosis) (R79.89) Elevated LFTs (R19.7) Intermittent diarrhea 1. Fatty liver -- Patient overall doing well today. Trying to work on diet and getting back into exercising as best as she can. -- Will order HFP -- RUQ US ordered - HEPATIC FUNCTION PNL; Future - US ABD RIGHT UPPER QUADRANT; Future 2. Elevated LFTs -- Patient overall doing well today. Trying to work on diet and getting back into exercising as best as she can. -- Will order HFP -- RUQ US ordered - HEPATIC FUNCTION PNL; Future - US ABD RIGHT UPPER QUADRANT; Future 3. Intermittent diarrhea - Start over there counter probiotic with at least 15 billion live cultures, 10+ strains - Drink around 64 oz water daily - Benefiber daily: 2 teaspoons added to 8 ounces of water up to 3 times daily. Follow up in office 6 months/PRN. Recommended to please call office/go to ER if fever, chills, chest pain, SOB, diarrhea, nausea, emesis, worsening abdominal pain, dehydration occurs I spent a total of 20 minutes on the date of the service which included preparing to see the patient, [id number] patient care, completing clinical documentation, obtaining and/or reviewing separately obtained history, performing a medically appropriate examination, counseling and educating the patient/family/caregiver, and ordering medications, tests, or procedures. Zuleika Cross PA-C April 22, 2023 10:29 AM documented in this encounter [facility] 04-17-2023 Note [facility] 04-17-2023 History of Present illness Narrative Radiology Service Progress Note PATIENT NAME: Katie Forde DATE OF SERVICE: April 17, 2023 TIME: 2:18 PM PATIENT IDENTITY VERIFICATION COMPLETED USING TWO (2) IDENTIFIERS: Name and Date of confirmed by patient verbally. FALL SCREENING: Has the patient had 2 falls in the last year or 1 fall with injury or currently using an Ambulatory Assistive Device (Walker, Cane, Wheelchair, Crutches, etc.)? No PATIENT GENDER DATA: Female. status: : No status: NO. PATIENT RELEVANT IMPLANT DATA REVIEWED: Not Applicable RADIOLOGY DEPARTMENT: Ultrasound PERIPHERAL IV DATA: Not applicable SIGNED BY: Rebeca Chinchilla RDMS RVT April 17, 2023 2:18 PM documented in this encounter [facility] 04-16-2023 Miscellaneous Notes Left message of same below on pt's vm. Fernanda Galindo LPN Was supposed to have 3 month follow up from January in April but scheduled for May. Refills to last till May follow up.. The following approved medication requests have been transmitted electronically. Requested Prescriptions Signed Prescriptions Disp Refills amphetamine-dextroamphetamine XR (ADDERALL XR) 30 mg capsule 30 capsule 0 Sig: Take 1 capsule by mouth every morning for 30 days. Authorizing Provider: KATE SILVA methylphenidate (RITALIN) 20 mg tablet 30 tablet 0 Sig: Take 1 tablet by mouth as needed for up to 30 days. Take at approx. 3-4 pm. Authorizing Provider: KATE SILVA amphetamine-dextroamphetamine XR (ADDERALL XR) 30 mg capsule 30 capsule 0 Sig: Take 1 capsule by mouth every morning for 30 days. Do not start before May 15, 2023. Authorizing Provider: KATE SILVA methylphenidate (RITALIN) 20 mg tablet 30 tablet 0 Sig: Take 1 tablet by mouth as needed for up to 30 days. Take at approx. 3-4 pm. Do not start before May 15, 2023. Authorizing Provider: KATE SILVA MD Patient has been identified by name and date of : Yes Patient phones for refill(s): Requested Prescriptions Pending Prescriptions Disp Refills amphetamine-dextroamphetamine XR (ADDERALL XR) 30 mg capsule 30 capsule 0 Sig: Take 1 capsule by mouth every morning for 30 days. methylphenidate (RITALIN) 20 mg tablet 30 tablet 0 Sig: Take 1 tablet by mouth as needed for up to 30 days. Take at approx. 3-4 pm. Date of last office visit in primary care: 01/28/2023 Date of next office visit in primary care: 06/06/2023 Last 2 Encounter Wt Readings: Date: Wt: 04/09/2023 138.5 kg (305 lb 6.4 oz) 03/20/2023 135.4 kg (298 lb 9.6 oz) Please advise. Thank you. NARA Rooney. documented in this encounter [facility] 04-09-2023 Note [facility] 04-09-2023 History of Present illness Narrative Katie Forde is a 22 year old female who presents for problem visit of missed period. She reports taking Provera every month to induce period which usually works. Stated LMP was 01/12/23-01/17/23. She took Provera in January and February and did not have any break through bleeding. She did not take Provera this month. Has not taken a test. Concerned over increased weight gain as well. Denies any recent changes in health or medications. 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 Comments: Sexual Activity: Not Currently; No partner data on record Contraception: No contraception data on record 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 EYE SURGERY HX 05/02/2015 detached retina EYE SURGERY HX 08/19/2018 right sided secondary lens implant LIVER BIOPSY 07/05/2022 PAST SURGICAL HISTORY OF sherwin eyes PAST SURGICAL HISTORY OF right leg broken-surgery FAMILY HISTORY Problem Relation Age of Onset other (Marfan's) Mother None Father other (Marfan's) Brother other (mood issues) Brother Osteoporosis Maternal Grandmother other (Marfan's) Maternal Grandfather None Paternal Grandmother Heart Paternal Grandfather pace maker No Ocular Disease Other Social History Tobacco Use Smoking status: Former Types: Cigarettes Quit date: 2021 Years since quittin.7 Smokeless tobacco: Never Tobacco comments: Pt smoked 3 cigarettes daily x 2 months, quit 2021 Vaping Use Vaping Use: current everyday user Substances: Nicotine, Flavoring Devices: Pre-filled or refillable cartridge Substance Use Topics Alcohol use: Not Currently Comment: occasional Drug use: No Current Outpatient Medications Medication Sig amphetamine-dextroamphetamine XR (ADDERALL XR) 30 mg 24 hr capsule Take 1 capsule by mouth every morning for 30 days. Do not start before January 08, 2023. amphetamine-dextroamphetamine XR (ADDERALL XR) 30 mg biphasic capsule Take 1 capsule by mouth every morning for 30 days. Do not start before February 08, 2023. amphetamine-dextroamphetamine XR (ADDERALL XR) 30 mg biphasic capsule Take 1 capsule by mouth every morning for 30 days. Do not start before March 10, 2023. amphetamine-dextroamphetamine XR (ADDERALL XR) 30 mg biphasic capsule Take 1 capsule by mouth every morning for 30 days. Do not start before April 09, 2023. amphetamine-dextroamphetamine XR (ADDERALL XR) 30 mg capsule Take 1 capsule by mouth every morning for 30 days. benzonatate (TESSALON PERLE) 100 mg capsule Take 2 capsules by mouth three times daily as needed. cetirizine (ZYRTEC) 10 mg tablet Take 1 tablet by mouth once daily. CPAP/BIPAP/OTHER Type .CPAPSettings into a note to see current settings/supplies/DME information. ergocalciferol 50,000 unit capsule (VITAMIN D2, DRISDOL) Take 1 capsule by mouth one time a week. fluticasone (FLONASE) 50 mcg/actuation nasal spray Use 2 Sprays in each nostril once daily. Rinse mouth after use. (Patient not taking: Reported on 04/09/2023) medroxyPROGESTERone (PROVERA) 10 mg tablet Take 1 tablet by mouth once daily. for the - of each month methylphenidate (RITALIN) 20 mg tablet Take 1 tablet by mouth as needed for up to 30 days. Take at approx. 3-4 pm. methylphenidate (RITALIN) 20 mg tablet Take 1 tablet by mouth as needed for up to 30 days. Take at approx. 3-4 pm. Do not start before February 08, 2023. methylphenidate (RITALIN) 20 mg tablet Take 1 tablet by mouth as needed for up to 30 days. Take at approx. 3-4 pm. Do not start before March 10, 2023. methylphenidate (RITALIN) 20 mg tablet Take 1 tablet by mouth as needed for up to 30 days. Take at approx. 3-4 pm. Do not start before April 09, 2023. methylphenidate (RITALIN) 20 mg tablet Take 1 tablet by mouth as needed for up to 30 days. Take at approx. 3-4 pm. omeprazole (PRILOSEC) 20 mg capsule Take 1 capsule by mouth once daily. PNV No.40-Iron Fum-FA Cmb No.1 (PNV-SELECT) 27-1 mg tab Take 1 tablet by mouth once daily. topiramate (TOPAMAX) 50 mg tablet Take 1 tablet by mouth once daily. Current Facility-Administered Medications Medication Dose Route Frequency perflutren lipid microspheres 1.3 mL in NaCl (PF) 0.9% 10 mL injection (DEFINITY) INTRAVENOUS DIRECTED PRN sodium chloride 0.9 % (flush) 10 mL (BD POSIFLUSH) 10 mL INTRAVENOUS DIRECTED PRN Allergies As of Date: 04/09/2023 (No Known Allergies) Fully Assessed 04/09/2023 REVIEW OF SYSTEMS Abdomen: No bloating, early satiety, indigestion, or increased flatulence. No abdominal pain, nausea, vomiting, diarrhea, or constipation. Bladder: No dysuria, gross hematuria, urinary frequency, urinary urgency, or incontinence. Breast: No breast lumps, nipple d/c, overlying skin changes, redness or skin retraction. Expanded ROS: N/A Allergies and current medication updated:Yes EXAM: BP 118/80 Wt 305 lb 6.4 oz (138.5kg) LMP 01/17/2023 GENERAL: pleasant, female in no apparent distress HEENT: Normocephalic and atraumatic NECK: Supple and full range of motion DERMATOLOGY: Normal and without lesions NEURO: alert and oriented x3,exam grossly non-focal EXTREMITIES: normal ASSESSMENT/PLAN: 1. Secondary amenorrhea - ICD9: 626.0, ICD10: N91.1 (primary diagnosis) - US FEMALE PELVIS TRANSVAG - TSH BLD - PROLACTIN BLD - FSH BLD - ESTRADIOL-17B BLD - HCG QUANTITATIVE 2. Missed menses - ICD9: 626.4, ICD10: N92.6 - Briefly reviewed use of OCP to regulate cycles- patient declines due to not wanting any possible hormonal effects on mood. Will notify patient of findings and follow up plan of care Kelly Nunez APRN.CNM documented in this encounter [facility] 03-20-2023 Note [facility] 03-20-2023 Instructions MaycolKeeley aiken APRN.CNP - 03/20/2023 11:28 AM EDT Amoxicillin as ordered Tylenol/ibuprofen as needed Flonase 2 sprays in each nostril once a day Zyrtec 10 mg By mouth daily at bedtime To get the best results when using a flonase do the following: Tilt your head down, bringing your chin closer to your chest Insert the nozzle of the medication bottle inside the nostril and direct it towards the outside, away from the middle of the nose. Your sinus openings are at the outside of the nose. Pump or activate the spray and lightly or slowly sniff air up into that nostril. Do not sniff hard or fast as you will pull the medication through the nose to the back of the throat where you will taste it and it does no good. If some medication drips out simply sniff in a little more or wipe it away - do not blow your nose for 30 jesús Repeat this process on the other side. documented in this encounter [facility] 03-20-2023 History of Present illness Narrative Subjective The history is provided by the patient and a friend. No lumber carrier was used. HPI Katie Forde is a 22 year old female who presents today for CC of right ear pain that is getting worse in the past week. She is also having nasal congestion, sinus pressures and cough for a week. She has used dayquil without relief BP 102/76 Pulse 102 Temp 36.4 C (97.6 F) Resp 18 Wt 135.4 kg (298 lb 9.6 oz) LMP 01/17/2023 SpO2 96% BMI 38.34 kg/m Social History Tobacco Use Smoking status: Former Types: Cigarettes Quit date: 2021 Years since quittin.7 Smokeless tobacco: Never Tobacco comments: Pt smoked 3 cigarettes daily x 2 months, quit 2021 Vaping Use Vaping Use: current everyday user Substances: Nicotine, Flavoring Devices: Pre-filled or refillable cartridge Substance Use Topics Alcohol use: Not Currently Comment: occasional Drug use: No PAST MEDICAL HISTORY Diagnosis Date ADHD (attention deficit hyperactivity disorder) Fatty liver GERD (gastroesophageal reflux disease) Marfan's syndrome VIRAL WARTS NOS 06/25/2008 resolved I have confirmed and edited as necessary, the [facility] Review of Systems Constitutional: Negative for chills and fever. HENT: Negative for congestion, ear pain, sinus pain and sore throat. Respiratory: Positive for cough. Negative for sputum production, shortness of breath and wheezing. Cardiovascular: Negative for chest pain. Musculoskeletal: Negative for myalgias. Neurological: Negative for headaches. Objective Physical Exam Vitals and nursing note reviewed. HENT: Head: Normocephalic and atraumatic. Right Ear: Tympanic membrane, ear canal and external ear normal. Left Ear: Tympanic membrane, ear canal and external ear normal. Nose: No mucosal edema, congestion or rhinorrhea. Right Sinus: No maxillary sinus tenderness or frontal sinus tenderness. Left Sinus: No maxillary sinus tenderness or frontal sinus tenderness. Mouth/Throat: Pharynx: Uvula midline. No oropharyngeal exudate or posterior oropharyngeal erythema. Cardiovascular: Rate and Rhythm: Normal rate and regular rhythm. Heart sounds: Normal heart sounds. Pulmonary: Effort: Pulmonary effort is normal. Breath sounds: Normal breath sounds. Lymphadenopathy: Head: Right side of head: No submental, submandibular or tonsillar adenopathy. Left side of head: No submental, submandibular or tonsillar adenopathy. Cervical: No cervical adenopathy. Skin: General: Skin is warm and dry. Neurological: Mental Status: She is alert. Psychiatric: Mood and Affect: Affect normal. ASSESSMENT/PLAN: 1. Protracted URI - ICD9: 465.9, ICD10: J06.9 (primary diagnosis) - Discussed viral etiology and rationale for treatment. - Symptomatic treatment with prn analgesia - Supportive care with fluids and rest - flonase, zyrtec, tesslon perls 2. Non-recurrent acute serous otitis media of right ear - ICD9: 381.01, ICD10: H65.01 - Will begin treatment with Amoxicillin for 7 days - Supportive care with plenty of fluids, rest, and analgesia prn. - Follow up in one week if symptoms persist or worsen. Diagnosis and treatment plan were discussed and questions were answered to the patient's satisfaction. Pt acknowledged understanding of concepts and follow up plan. Specific signs and symptoms that would indicate the need for higher level of care were discussed in detail warranting prompt ER evaluation. Keeley Severino APRN.HEAD OF ENGLISH' documented in this encounter [facility] 03-18-2023 Miscellaneous Notes Pt scheduled for 04/09/23 at 1:30 with CP. Roseanna Dumont LPN Needs appointment, doesn't have to be w/ me. Lorna Day MD Please see pt's [employer] message and further advise. Pt is aware that you are out of the office until 03/18/23. Roseanna Dumont LPN documented in this encounter [facility] 03-11-2023 Miscellaneous Notes Patient has been identified by name and date of : Yes Patient phones for refill(s): Requested Prescriptions Pending Prescriptions Disp Refills amphetamine-dextroamphetamine XR (ADDERALL XR) 30 mg capsule 30 capsule 0 Sig: Take 1 capsule by mouth every morning for 30 days. Date of last office visit in primary care: 01/28/2023 3 month follow-up: 06/06/2023 Last 2 Encounter Wt Readings: Date: Wt: 01/28/2023 135.2 kg (298 lb) 01/20/2023 133.8 kg (295 lb) Previous labs/tests for medication: Not applicable Please advise. Thank you. Karen Urias LPN documented in this encounter [facility] 03-11-2023 Miscellaneous Notes Patient has been identified by name and date of : Yes Patient phones for refill(s): Requested Prescriptions Pending Prescriptions Disp Refills methylphenidate (RITALIN) 20 mg tablet 30 tablet 0 Sig: Take 1 tablet by mouth as needed for up to 30 days. Take at approx. 3-4 pm. Date of last office visit in primary care: 01/28/2023 3 month follow-up: 06/06/2023 Last 2 Encounter Wt Readings: Date: Wt: 01/28/2023 135.2 kg (298 lb) 01/20/2023 133.8 kg (295 lb) Previous labs/tests for medication: Not applicable Please advise. Thank you. Karen Urias LPN documented in this encounter [facility] 02-25-2023 Note [facility] 02-25-2023 Instructions Karlos Jett MD - 02/25/2023 2:02 PM EDT ESTEBAN: -Increase from 5-10 cm H2O to 5-15 cmH2O. - Remember to clean your mask and equipment regularly, as directed. - You should be eligible for new supplies approximately every 3-6 months, depending on your insurance coverage. Contact your Durable Medical Equipment (DME) company for new supplies as needed. - Follow up in 2-3 months with Karlos Jett MD or my associates. [facility] REQUIREMENTS: - Your insurance requires a [id number] follow up visit within a 31-90 day period after starting CPAP. - Your insurance requires compliance with CPAP, which is at least 4 hours per night for 70% of the time. This must be done over a 30 day period and must occur within the initial 31-90 day period after starting CPAP. - Your insurance also requires at least yearly follow ups to continue to pay for CPAP supplies. Your most recent body mass index (BMI) that we have on record is 38.26 kg/m2. Obstructive sleep apnea (ESTEBAN) worsens with an increase in weight; reduction in weight may improve or resolve your ESTEBAN. If you are not already seeking treatment, there are resources available at the [facility] such as a nutrition consultation or referral to weight management programs at our [facility]. Please let us know if we can assist with a referral. PAP Supply Guidelines Below are the guidelines for reordering your supplies. You will be responsible for your deductible, co-payments, and out of pocket expenses. Item Medicare & Commercial Insurance Medicaid & HCAP Nasal Mask (no headgear) 1 every 3 months 1 per year Nasal Mask Cushion 1 every month 2 per year Full Face Mask (no headgear) 1 every 3 months 1 per year Full Face Mask Cushion 1 every month *Self-Pay Nasal Pillows 2 every month 2 per year Headgear 1 every 6 months 1 per year Chin Strap 1 every 6 months 2 per year Tubing 1 every 3 months 1 per year Filters: Reusable 1 every 6 months 4 per year Filters: Disposable 2 every month 1 per month Humidifier Chamber(disposable) 1 every 6 months *Self-Pay About Your PAP Therapy Continuous Positive Airway Pressure/Bilevel Therapy You have been prescribed Positive Airway Pressure (PAP) therapy to treat sleep apnea. The most common type of sleep apnea is obstructive sleep apnea (ESTEBAN), a condition in which the upper airway collapses during sleep. This obstruction keeps air from getting into your lungs. The prescribed PAP machine (CPAP or Bilevel or ASV) will smoothly blow air into your airway to prevent it from closing. The machine will use a mask to deliver the air through your nose and/or mouth. These devices are available in various sizes and styles. It will take some time for you to get used to the new equipment and it may take a while for you to begin to feel the benefits of PAP therapy. Please be patient. If you are having problems adjusting to your machine, please contact us for help. Beginning your PAP Therapy Assembly: Place your PAP machine on a level surface near your bed. To prevent injury, do not place the machine higher than your head. Keep the machine at least 12 inches away from anything that may block the vents. Plug the machine into a properly grounded electrical outlet. It is better to avoid using an extension cord. If necessary, use a heavy-duty one. If you are NOT using a humidifier with you PAP equipment: Attach one end of your 6-foot tubing to the PAP unit outlet and the other end to your mask. (If your mask does not have a built-in exhalation port, a special exhalation valve should be used between the mask and the 6-foot tubing.) Attach the headgear to your mask. If you are using a humidifier with your PAP equipment: Fill the humidifier with DISTILLED water to the maximum fill line. Attach the humidifier to the PAP unit s outlet as instructed by the respiratory therapist with your home care company. Attach one end of your 6-foot tubing to the humidifier outlet and the other end to your mask. (If your mask does not have a built-in exhalation port, a special exhalation valve should be used between the mask and the 6-foot tubing.) If you have been prescribed oxygen to be used with the PAP machine, you will be instructed on how to attach your oxygen tubing. Always turn off the oxygen tank before turning off your PAP machine. Getting Started: Wash your face and apply the mask and headgear as instructed by the instrumentation technologist or respiratory therapist. The mask should fit snugly to prevent air leaks, but not so tight as to cause skin irritation or discomfort. Turn the PAP power switch to the ON position. You should feel air blowing through the mask. Breathe normally and adjust the mask gently if you feel an air leak. If there are no leaks, activate the ramp feature on your PAP machine. The ramp allows a lower pressure to be delivered for a designated period of time (usually 5 to 45 minutes) to allow you to relax and fall asleep more easily. The pressure will then gradually increase to the prescribed pressure that controls your apnea. Remember to turn OFF your PAP unit when it is not in use. Care and Maintenance Headgear should be washed as needed. Daily inspection and weekly washings are recommended. Do not disassemble the straps. Machine wash in warm water, making sure to attach Velcro hooks and tabs before washing. Line dry or machine dry on a low setting. Masks should be washed every other day. Daily inspection is recommended. Leave the mask and tubing attached. Gently wash the mask with a soft cloth using warm water and mild detergent, concentrating on the mask cushion flaps. DO NOT use alcohol or bleach. Rinse thoroughly and air dry. Tubing should be washed every other day. Daily inspection is recommended. Wash in warm water and mild detergent and rinse thoroughly. Hook the tubing to the machine and blow until dry. Humidifier should be washed daily and filled with DISTILLED water before use. Wash with warm water and mild detergent. Disinfect weekly by soaking with a solution of 1 part white vinegar and 3 parts water for 30 minutes. Rinse thoroughly and air dry. Disposable filters should be replaced once a month. Wash reusable foam filters with warm water and mild detergent at least once a month. Rinse thoroughly and dry with paper towels. Avoid webbing supervisor that contain fragrance or conditioners, as these will leave a residue. NEVER iron any soft goods. Troubleshooting If the machine fails to turn on: Make sure that the PAP machine is plugged into a grounded outlet. Make sure that the ON/OFF switch is in the ON position. Make sure that the wall outlet has power. If there is no pressure coming from your machine: Make sure that the inlet filter is clean and unblocked. Make sure that the cooling fan is unblocked and that air is flowing freely. Make sure that all tubing is securely connected. If your PAP machine still fails to operate, please call [phone] or your home care company for assistance. What You Should Know About Insurance There are many different insurance policies and coverage for PAP equipment will vary. Find out what your coverage provides and what your responsibilities are as a consumer. PAP therapy equipment is considered Durable Medical Equipment (DME). Here are a few questions to ask your insurance provider. What benefits do I have for DME? Do I have a deductible and/or co pay for DME? Is there a repair or replacement plan for durable medical equipment? How often can I receive a replacement mask, tubing, headgear and filters? Do I have to demonstrate that I am using my PAP device? How do I do that? Important Information It is very important to keep your PAP equipment and supplies clean. The life of the supplies depends on the care they receive. Under normal circumstances, expect the mask and headgear to last 9-12 months. Refer to the hand crown pouncer s manual for more information. Important Safety Reminders Keep equipment free from obstruction. Use your PAP equipment as directed. DO NOT try to adjust your pressure setting. DO NOT block the exhalation port or valve. Keep filters clean to prevent overheating. If a humidifier is being used, place it at a level lower than your head. If using a heated humidifier, allow unit to cool before cleaning or refilling. Follow safety guidelines regarding oxygen equipment.DO NOT operate multiple electrical devices from one outlet. If you have a medical emergency, contact the Emergency Medical Services. Below are the links to follow to watch a PAP education video: [email or web address]_[email or web address]_th erapy.aspx http://www.youtube.com/watch?v=peJ _epDGzEw [email or web address]/sleep-[email or web address] -center/treatment-services/pap-the rapy.aspx documented in this encounter [facility] 02-25-2023 History of Present illness Narrative Images from the original note were not included. [facility] Virtual Visit Follow up/ Established patient visit Date of last visit : Visit date not found I have communicated my name and active licensure. The patient's identity and physical location were verified at the time of this visit. Either the patient or their legal financial foundations representative has been informed of the risks and benefits of -- and alternatives to -- treatment through a remote evaluation and consents to proceed with the evaluation remotely. Interval history : Here for follow up for ESTEBAN on CPAP Katie Forde is a 21 year old female with past medical history of migraine, Marfan syndrome, ADHD, depression, anxiety, obesity (BMI 40), hypovitaminosis D presenting with sleep concerns of mild ESTEBAN (AHI 5.8, RDI 9.8, supine AHI 7.2, REM AHI 9.8). Sleep disordered breathing symptoms: Snoring, fatigue, daytime napping, may have AM SOTO. Given the patient's history of Marfan syndrome, there is an increased likelihood of airway flexibility perhaps predisposing the patient to sleep disordered breathing. Furthermore, given the risk of cardiac complications with Marfan syndrome and the increased risk of CVA with moderate or severe ESTEBAN, would be advised to diagnose and treat sleep apnea. 12/27/2022: PAP titration - AHI normalizaed at all tested PAP settings (5cmh2o) mild esteban -we will ask the telephony engineer to schedule with anybody in sleep medicine. Per patient preference, I MyChart message her regarding her results, I ordered AutoPap 5-10 cm H2O. [place]. SLEEP APNEA Sleep apnea type : ESTEBAN, Most Recent Apnea-Hypopnea Index (AHI): RDI 9.8, AHI 5.8 Treatment : PAP therapy DME: [employer] PAP History: Uses AutoPAP for 8 hours per night, some nights per week, she only recently started her device Current PAP settin-10 cm H2O. Difficulties with AutoPAP: None Reviewed objective PAP compliance data: Per below. Residual AHI 0.8. 95th percentile pressure 9.4, of note this is very near the max 10 cm H2O. Mask type: full face mask Mask issues: none Uses chin strap: No Uses ramp function: Yes Uses humidity: Yes There is a perceived benefit by the patient: less EDS and cut out naps. Observers report abolition of snoring with AutoPAP use. ------- SLEEP HYGIENE QUESTIONS: Bedtime: 00- 1AM. She does not have a hard time falling asleep. Wake time: 710 AM, with an alarm. - wakes unrefreshed After falling asleep: she does not usually wake up during the night. On weekends, she maintains the same sleep schedule. Average total sleep time (in a 24 hour period): 7 hours. She does takes fewer naps. Previously was Frequency: 7/7, Duration: 2-3h. Naps are sometimes refreshing. PATIENT-ENTERED QUESTIONNAIRE SLEEP SCORES Sleep Questions 02/24/2023 Reason for visit: Sleep apnea Average hours slept in 24 hours: - Average hours of CPAP per night: 9.5 Percent of nights CPAP used at least 4 hours: 5 Accidents or near accidents due to drowsy drivin [place] Sleepiness Scale 09/04/2022 11/08/2022 02/24/2023 Score 9 (No daytime sleepiness) 13 (present daytime sleepiness) 2 (No daytime sleepiness) PROMIS CAT Sleep Disturbance 09/04/2022 11/08/2022 02/24/2023 PROMIS Sleep Disturbance T-Score 49 (within normal limits) 54 (within normal limits) 50 (within normal limits) PROMIS Sleep Disturbance Percentile 54 % 34 % 50 % Restless Leg Syndrome 11/08/2022 Score 0 PHQ-9 11/08/2022 02/24/2023 Score 0 5 PROMIS Global Health - (T-Scores - the mean of general population = 50. Five points is a clinically meaningful difference.) 11/08/2022 02/24/2023 Physical T-Score 50.8 47.7 Mental T-Score 59 38.8 ALLERGIES No Known Allergies CURRENT MEDICATIONS: CPAP/BIPAP/OTHER^Type .CPAPSettings into a note to see current settings/supplies/DME information.^Disp: 1 Each^Rfl: 0 [START ON 04/09/2023] methylphenidate (RITALIN) 20 mg tablet^Take 1 tablet by mouth as needed for up to 30 days. Take at approx. 3-4 pm. Do not start before April 09, 2023.^Disp: 30 tablet^Rfl: 0 [START ON 04/09/2023] amphetamine-dextroamphetamine XR (ADDERALL XR) 30 mg biphasic capsule^Take 1 capsule by mouth every morning for 30 days. Do not start before April 09, 2023.^Disp: 30 capsule^Rfl: 0 topiramate (TOPAMAX) 50 mg tablet^Take 1 tablet by mouth once daily.^Disp: 30 tablet^Rfl: 11 omeprazole (PRILOSEC) 20 mg capsule^Take 1 capsule by mouth once daily.^Disp: 30 capsule^Rfl: 11 methylphenidate (RITALIN) 20 mg tablet^Take 1 tablet by mouth as needed for up to 30 days. Take at approx. 3-4 pm.^Disp: 30 tablet^Rfl: 0 amphetamine-dextroamphetamine XR (ADDERALL XR) 30 mg biphasic capsule^Take 1 capsule by mouth every morning for 30 days.^Disp: 30 capsule^Rfl: 0 methylphenidate (RITALIN) 20 mg tablet^Take 1 tablet by mouth as needed for up to 30 days. Take at approx. 3-4 pm. Do not start before February 08, 2023.^Disp: 30 tablet^Rfl: 0 [START ON 03/10/2023] methylphenidate (RITALIN) 20 mg tablet^Take 1 tablet by mouth as needed for up to 30 days. Take at approx. 3-4 pm. Do not start before March 10, 2023.^Disp: 30 tablet^Rfl: 0 amphetamine-dextroamphetamine XR (ADDERALL XR) 30 mg biphasic capsule^Take 1 capsule by mouth every morning for 30 days. Do not start before February 08, 2023.^Disp: 30 capsule^Rfl: 0 [START ON 03/10/2023] amphetamine-dextroamphetamine XR (ADDERALL XR) 30 mg biphasic capsule^Take 1 capsule by mouth every morning for 30 days. Do not start before March 10, 2023.^Disp: 30 capsule^Rfl: 0 methylphenidate (RITALIN) 20 mg tablet^Take 1 tablet by mouth as needed for up to 30 days. Take at approx. 3-4 pm.^Disp: 30 tablet^Rfl: 0 amphetamine-dextroamphetamine XR (ADDERALL XR) 30 mg 24 hr capsule^Take 1 capsule by mouth every morning for 30 days. Do not start before January 08, 2023.^Disp: 30 capsule^Rfl: 0 ergocalciferol 50,000 unit capsule (VITAMIN D2, DRISDOL)^Take 1 capsule by mouth one time a week.^Disp: 8 capsule^Rfl: 0 PNV No.40-Iron Fum-FA Cmb No.1 (PNV-SELECT) 27-1 mg tab^Take 1 tablet by mouth once daily.^Disp: 30 tablet^Rfl: 12 medroxyPROGESTERone (PROVERA) 10 mg tablet^Take 1 tablet by mouth once daily. for the -10th of each month^Disp: 10 tablet^Rfl: 11 Prior Hypersomnia/Narcolepsy Medications (20 years) Some values may be hidden. Unless noted otherwise, only the newest values recorded on each date are displayed. Also, latest columns from 02/26/2013 - 02/26/2023 are shown. Hypersomnia/Narcolepsy Medications Amphetamine-Dextroamphetamine (ADDERALL XR) 25 mg ORAL 24 hr capsule Dose: 1 capsule EVERY MORNING Starting date: 06/05/2011 Ending date: 06/27/2011 (Discontinued) amphetamine-dextroamphetamine (ADDERALL XR) 30 mg ORAL 24 hr capsule Dose: 30 mg EVERY MORNING Starting date: 06/27/2011 Ending date: 07/29/2011 (Discontinued) amphetamine-dextroamphetamine (ADDERALL XR) 30 mg ORAL 24 hr capsule Dose: 30 mg EVERY MORNING Starting date: 07/29/2011 Ending date: 08/23/2011 (Discontinued) amphetamine-dextroamphetamine (ADDERALL XR) 30 mg ORAL 24 hr capsule Dose: 30 mg EVERY MORNING Starting date: 08/23/2011 Ending date: 09/17/2011 (Discontinued) amphetamine-dextroamphetamine (ADDERALL XR) 30 mg ORAL 24 hr capsule Dose: 30 mg EVERY MORNING Starting date: 09/17/2011 Ending date: 10/17/2011 (Discontinued) amphetamine-dextroamphetamine (ADDERALL XR) 30 mg ORAL 24 hr capsule Dose: 30 mg EVERY MORNING Starting date: 10/17/2011 Ending date: 11/16/2011 (Discontinued) amphetamine-dextroamphetamine (ADDERALL XR) 30 mg 24 hr capsule Dose: 30 mg EVERY MORNING Starting date: 11/16/2011 Ending date: 12/16/2011 (Discontinued) amphetamine-dextroamphetamine (ADDERALL XR) 30 mg 24 hr capsule Dose: 30 mg EVERY MORNING Starting date: 12/16/2011 Ending date: 01/13/2012 (Discontinued) amphetamine-dextroamphetamine (ADDERALL XR) 30 mg 24 hr capsule Dose: 30 mg EVERY MORNING Starting date: 01/13/2012 Ending date: 02/10/2012 (Discontinued) amphetamine-dextroamphetamine (ADDERALL XR) 30 mg 24 hr capsule Dose: 30 mg EVERY MORNING Starting date: 02/10/2012 Ending date: 03/11/2012 (Discontinued) amphetamine-dextroamphetamine (ADDERALL XR) 30 mg 24 hr capsule Dose: 30 mg EVERY MORNING Starting date: 03/11/2012 Ending date: 04/08/2012 (Discontinued) amphetamine-dextroamphetamine (ADDERALL XR) 30 mg 24 hr capsule Dose: 30 mg EVERY MORNING Starting date: 04/08/2012 Ending date: 05/07/2012 (Discontinued) amphetamine-dextroamphetamine (ADDERALL XR) 30 mg 24 hr capsule Dose: 30 mg EVERY MORNING Starting date: 05/07/2012 Ending date: 06/04/2012 (Discontinued) amphetamine-dextroamphetamine (ADDERALL XR) 30 mg 24 hr capsule Dose: 30 mg EVERY MORNING Starting date: 06/04/2012 Ending date: 07/03/2012 (Discontinued) amphetamine-dextroamphetamine (ADDERALL XR) 30 mg 24 hr capsule Dose: 30 mg EVERY MORNING Starting date: 07/03/2012 Ending date: 07/31/2012 (Discontinued) amphetamine-dextroamphetamine (ADDERALL XR) 30 mg 24 hr capsule Dose: 30 mg EVERY MORNING Starting date: 07/31/2012 Ending date: 08/28/2012 (Discontinued) amphetamine-dextroamphetamine (ADDERALL XR) 30 mg 24 hr capsule Dose: 30 mg EVERY MORNING Starting date: 08/28/2012 Ending date: 09/26/2012 (Discontinued) amphetamine-dextroamphetamine (ADDERALL XR) 30 mg 24 hr capsule Dose: 30 mg EVERY MORNING Starting date: 09/26/2012 Ending date: 10/24/2012 (Discontinued) amphetamine-dextroamphetamine (ADDERALL XR) 30 mg 24 hr capsule Dose: 30 mg EVERY MORNING Starting date: 10/24/2012 Ending date: 11/21/2012 (Discontinued) amphetamine-dextroamphetamine (ADDERALL XR) 30 mg 24 hr capsule Dose: 30 mg EVERY MORNING Starting date: 11/21/2012 Ending date: 12/22/2012 (Discontinued) dextroamphetamine-amphetamine (ADDERALL XR) 30 mg 24 hr capsule Dose: 30 mg EVERY MORNING Starting date: 12/22/2012 Ending date: 01/19/2013 (Discontinued) dextroamphetamine-amphetamine (ADDERALL XR) 30 mg 24 hr capsule Dose: 30 mg EVERY MORNING Starting date: 01/19/2013 Ending date: 02/18/2013 (Discontinued) dextroamphetamine-amphetamine (ADDERALL XR) 30 mg 24 hr capsule Dose: 30 mg EVERY MORNING Starting date: 02/18/2013 Ending date: 03/22/2013 (Discontinued) dextroamphetamine-amphetamine (ADDERALL XR) 30 mg 24 hr capsule Dose: 30 mg EVERY MORNING Starting date: 03/22/2013 Ending date: 04/19/2013 (Discontinued) dextroamphetamine-amphetamine (ADDERALL XR) 30 mg 24 hr capsule Dose: 30 mg EVERY MORNING Starting date: 04/19/2013 Ending date: 05/18/2013 (Discontinued) dextroamphetamine-amphetamine (ADDERALL XR) 30 mg 24 hr capsule Dose: 30 mg EVERY MORNING Starting date: 05/18/2013 Ending date: 06/15/2013 (Discontinued) dextroamphetamine-amphetamine (ADDERALL XR) 30 mg 24 hr capsule Dose: 30 mg EVERY MORNING Starting date: 06/15/2013 Ending date: 07/14/2013 (Discontinued) dextroamphetamine-amphetamine (ADDERALL XR) 30 mg 24 hr capsule Dose: 30 mg EVERY MORNING Starting date: 07/14/2013 Ending date: 08/12/2013 (Discontinued) dextroamphetamine-amphetamine (ADDERALL XR) 30 mg 24 hr capsule Dose: 30 mg EVERY MORNING Starting date: 08/12/2013 Ending date: 09/07/2013 (Discontinued) dextroamphetamine-amphetamine (ADDERALL XR) 30 mg 24 hr capsule Dose: 30 mg EVERY MORNING Starting date: 09/07/2013 Ending date: 10/06/2013 (Discontinued) dextroamphetamine-amphetamine (ADDERALL XR) 30 mg 24 hr capsule Dose: 30 mg EVERY MORNING Starting date: 10/06/2013 Ending date: 11/03/2013 (Discontinued) dextroamphetamine-amphetamine (ADDERALL XR) 30 mg 24 hr capsule Dose: 30 mg EVERY MORNING Starting date: 11/03/2013 Ending date: 12/02/2013 (Discontinued) dextroamphetamine-amphetamine (ADDERALL XR) 30 mg 24 hr capsule Dose: 30 mg EVERY MORNING Starting date: 12/02/2013 Ending date: 12/29/2013 (Discontinued) dextroamphetamine-amphetamine (ADDERALL XR) 30 mg 24 hr capsule Dose: 30 mg EVERY MORNING Starting date: 12/29/2013 Ending date: 01/28/2014 (Discontinued) dextroamphetamine-amphetamine (ADDERALL XR) 30 mg 24 hr capsule Dose: 30 mg EVERY MORNING Starting date: 01/28/2014 Ending date: 03/01/2014 (Discontinued) dextroamphetamine-amphetamine (ADDERALL XR) 30 mg 24 hr capsule Dose: 30 mg EVERY MORNING Starting date: 03/01/2014 Ending date: 03/28/2014 (Discontinued) dextroamphetamine-amphetamine (ADDERALL XR) 30 mg 24 hr capsule Dose: 30 mg EVERY MORNING Starting date: 03/28/2014 Ending date: 04/22/2014 (Discontinued) dextroamphetamine-amphetamine (ADDERALL XR) 30 mg 24 hr capsule Dose: 30 mg EVERY MORNING Starting date: 04/22/2014 Ending date: 06/09/2014 (Discontinued) dextroamphetamine-amphetamine (ADDERALL XR) 30 mg 24 hr capsule Dose: 30 mg EVERY MORNING Starting date: 04/22/2014 Ending date: 04/22/2014 (Discontinued) dextroamphetamine-amphetamine (ADDERALL XR) 30 mg 24 hr capsule Dose: 30 mg EVERY MORNING Starting date: 04/22/2014 Ending date: 04/22/2014 (Discontinued) dextroamphetamine-amphetamine (ADDERALL XR) 30 mg 24 hr capsule Dose: 30 mg EVERY MORNING Starting date: 06/22/2014 Ending date: 06/09/2014 (Discontinued) dextroamphetamine-amphetamine (ADDERALL XR) 30 mg 24 hr capsule Dose: 30 mg EVERY MORNING Starting date: 05/23/2014 Ending date: 07/21/2014 (Discontinued) dextroamphetamine-amphetamine (ADDERALL XR) 30 mg 24 hr capsule Dose: 30 mg EVERY MORNING Starting date: 07/21/2014 Ending date: 10/18/2014 (Discontinued) dextroamphetamine-amphetamine (ADDERALL XR) 30 mg 24 hr capsule Dose: 30 mg EVERY MORNING Starting date: 08/22/2014 Ending date: 10/18/2014 (Discontinued) dextroamphetamine-amphetamine (ADDERALL XR) 30 mg 24 hr capsule Dose: 30 mg EVERY MORNING Starting date: 09/19/2014 Ending date: 10/18/2014 (Discontinued) dextroamphetamine-amphetamine (ADDERALL XR) 30 mg 24 hr capsule Dose: 30 mg EVERY MORNING Starting date: 10/18/2014 Ending date: 11/14/2014 (Discontinued) dextroamphetamine-amphetamine (ADDERALL XR) 30 mg 24 hr capsule Dose: 30 mg EVERY MORNING Starting date: 11/14/2014 Ending date: 02/16/2015 (Discontinued) dextroamphetamine-amphetamine (ADDERALL XR) 30 mg 24 hr capsule Dose: 30 mg EVERY MORNING Starting date: 12/15/2014 Ending date: 02/16/2015 (Discontinued) dextroamphetamine-amphetamine (ADDERALL XR) 30 mg 24 hr capsule Dose: 30 mg EVERY MORNING Starting date: 01/14/2015 Ending date: 02/16/2015 (Discontinued) dextroamphetamine-amphetamine (ADDERALL XR) 30 mg 24 hr capsule Dose: 30 mg EVERY MORNING Starting date: 02/17/2015 Ending date: 05/12/2015 (Discontinued) dextroamphetamine-amphetamine (ADDERALL XR) 30 mg 24 hr capsule Dose: 30 mg EVERY MORNING Starting date: 04/18/2015 Ending date: 05/12/2015 (Discontinued) dextroamphetamine-amphetamine (ADDERALL XR) 30 mg 24 hr capsule Dose: 30 mg EVERY MORNING Starting date: 03/19/2015 Ending date: 05/16/2015 (Discontinued) dextroamphetamine-amphetamine (ADDERALL XR) 30 mg 24 hr capsule Dose: 30 mg EVERY MORNING Starting date: 05/16/2015 Ending date: 09/13/2015 (Discontinued) dextroamphetamine-amphetamine (ADDERALL XR) 30 mg 24 hr capsule Dose: 30 mg EVERY MORNING Starting date: 09/13/2015 Ending date: 10/11/2015 (Discontinued) dextroamphetamine-amphetamine (ADDERALL XR) 30 mg 24 hr capsule Dose: 30 mg EVERY MORNING Starting date: 10/11/2015 Ending date: 03/12/2016 (Discontinued) dextroamphetamine-amphetamine (ADDERALL XR) 30 mg 24 hr capsule Dose: 30 mg EVERY MORNING Starting date: 11/10/2015 Ending date: 03/12/2016 (Discontinued) dextroamphetamine-amphetamine (ADDERALL XR) 30 mg 24 hr capsule Dose: 30 mg EVERY MORNING Starting date: 12/11/2015 Ending date: 01/09/2016 (Discontinued) dextroamphetamine-amphetamine (ADDERALL XR) 30 mg 24 hr capsule Dose: 30 mg EVERY MORNING Starting date: 01/09/2016 Ending date: 02/09/2016 (Discontinued) dextroamphetamine-amphetamine (ADDERALL XR) 30 mg 24 hr capsule Dose: 30 mg EVERY MORNING Starting date: 02/09/2016 Ending date: 03/12/2016 (Discontinued) dextroamphetamine-amphetamine (ADDERALL XR) 30 mg 24 hr capsule Dose: 30 mg EVERY MORNING Starting date: 05/09/2016 Ending date: 06/07/2016 (Discontinued) dextroamphetamine-amphetamine (ADDERALL XR) 30 mg 24 hr capsule Dose: 30 mg EVERY MORNING Starting date: 04/10/2016 Ending date: 06/07/2016 (Discontinued) dextroamphetamine-amphetamine (ADDERALL XR) 30 mg 24 hr capsule Dose: 30 mg EVERY MORNING Starting date: 03/12/2016 Ending date: 06/07/2016 (Discontinued) dextroamphetamine-amphetamine (ADDERALL XR) 30 mg 24 hr capsule Dose: 30 mg EVERY MORNING Starting date: 06/07/2016 Ending date: 07/09/2016 (Discontinued) dextroamphetamine-amphetamine (ADDERALL XR) 30 mg 24 hr capsule Dose: 30 mg EVERY MORNING Starting date: 08/08/2016 Ending date: 09/09/2016 (Discontinued) dextroamphetamine-amphetamine (ADDERALL XR) 30 mg 24 hr capsule Dose: 30 mg EVERY MORNING Starting date: 09/07/2016 Ending date: 09/09/2016 (Discontinued) dextroamphetamine-amphetamine (ADDERALL XR) 30 mg 24 hr capsule Dose: 30 mg EVERY MORNING Starting date: 07/09/2016 Ending date: 09/09/2016 (Discontinued) dextroamphetamine-amphetamine (ADDERALL XR) 30 mg 24 hr capsule Dose: 30 mg EVERY MORNING Starting date: 11/09/2016 Ending date: 12/09/2016 (Discontinued) dextroamphetamine-amphetamine (ADDERALL XR) 30 mg 24 hr capsule Dose: 30 mg EVERY MORNING Starting date: 10/10/2016 Ending date: 12/09/2016 (Discontinued) dextroamphetamine-amphetamine (ADDERALL XR) 30 mg 24 hr capsule Dose: 30 mg EVERY MORNING Starting date: 09/09/2016 Ending date: 12/09/2016 (Discontinued) dextroamphetamine-amphetamine (ADDERALL XR) 30 mg 24 hr capsule Dose: 30 mg EVERY MORNING Starting date: 12/09/2016 Ending date: 01/07/2017 (Discontinued) dextroamphetamine-amphetamine (ADDERALL XR) 30 mg 24 hr capsule Dose: 30 mg EVERY MORNING Starting date: 01/07/2017 Ending date: 02/03/2017 (Discontinued) dextroamphetamine-amphetamine (ADDERALL XR) 30 mg 24 hr capsule Dose: 30 mg EVERY MORNING Starting date: 02/03/2017 Ending date: 03/14/2017 (Discontinued) dextroamphetamine-amphetamine (ADDERALL XR) 30 mg 24 hr capsule Dose: 30 mg EVERY MORNING Starting date: 05/14/2017 Ending date: 06/11/2017 (Discontinued) dextroamphetamine-amphetamine (ADDERALL XR) 30 mg 24 hr capsule Dose: 30 mg EVERY MORNING Starting date: 04/13/2017 Ending date: 06/11/2017 (Discontinued) dextroamphetamine-amphetamine (ADDERALL XR) 30 mg 24 hr capsule Dose: 30 mg EVERY MORNING Starting date: 03/14/2017 Ending date: 06/11/2017 (Discontinued) dextroamphetamine-amphetamine (ADDERALL XR) 30 mg 24 hr capsule Dose: 30 mg EVERY MORNING Starting date: 06/11/2017 Ending date: 09/08/2017 (Discontinued) dextroamphetamine-amphetamine (ADDERALL XR) 30 mg 24 hr capsule Dose: 30 mg EVERY MORNING Starting date: 07/11/2017 Ending date: 09/08/2017 (Discontinued) dextroamphetamine-amphetamine (ADDERALL XR) 30 mg 24 hr capsule Dose: 30 mg EVERY MORNING Starting date: 08/10/2017 Ending date: 09/08/2017 (Discontinued) dextroamphetamine-amphetamine (ADDERALL XR) 30 mg 24 hr capsule Dose: 30 mg EVERY MORNING Starting date: 09/08/2017 Ending date: 09/30/2017 (Discontinued) dextroamphetamine-amphetamine (ADDERALL XR) 30 mg 24 hr capsule Dose: 30 mg EVERY MORNING Starting date: 09/30/2017 Ending date: 11/07/2017 (Discontinued) dextroamphetamine-amphetamine (ADDERALL XR) 30 mg 24 hr capsule Dose: 30 mg EVERY MORNING Starting date: 11/07/2017 Ending date: 12/08/2017 (Discontinued) dextroamphetamine-amphetamine (ADDERALL XR) 30 mg 24 hr capsule Dose: 30 mg EVERY MORNING Starting date: 12/08/2017 Ending date: 03/04/2018 (Discontinued) dextroamphetamine-amphetamine (ADDERALL XR) 30 mg 24 hr capsule Dose: 30 mg EVERY MORNING Starting date: 01/07/2018 Ending date: 03/04/2018 (Discontinued) dextroamphetamine-amphetamine (ADDERALL XR) 30 mg 24 hr capsule Dose: 30 mg EVERY MORNING Starting date: 02/06/2018 Ending date: 03/04/2018 (Discontinued) dextroamphetamine-amphetamine (ADDERALL XR) 30 mg 24 hr capsule Dose: 30 mg EVERY MORNING Starting date: 05/03/2018 Ending date: 05/28/2018 (Discontinued) dextroamphetamine-amphetamine (ADDERALL XR) 30 mg 24 hr capsule Dose: 30 mg EVERY MORNING Starting date: 04/03/2018 Ending date: 03/25/2018 (Discontinued) dextroamphetamine-amphetamine (ADDERALL XR) 30 mg 24 hr capsule Dose: 30 mg EVERY MORNING Starting date: 03/04/2018 Ending date: 03/25/2018 (Discontinued) dextroamphetamine-amphetamine (ADDERALL XR) 30 mg 24 hr capsule Dose: 30 mg EVERY MORNING Starting date: 05/28/2018 Ending date: 06/18/2018 (Discontinued) dextroamphetamine-amphetamine (ADDERALL XR) 30 mg 24 hr capsule Dose: 30 mg EVERY MORNING Starting date: 06/18/2018 Ending date: 07/22/2018 (Discontinued) dextroamphetamine-amphetamine (ADDERALL XR) 30 mg 24 hr capsule Dose: 30 mg EVERY MORNING Starting date: 07/23/2018 Ending date: 08/20/2018 (Discontinued) dextroamphetamine-amphetamine (ADDERALL XR) 30 mg 24 hr capsule Dose: 30 mg EVERY MORNING Starting date: 08/20/2018 Ending date: 09/08/2018 (Discontinued) dextroamphetamine-amphetamine (ADDERALL XR) 30 mg 24 hr capsule Dose: 30 mg EVERY MORNING Starting date: 09/08/2018 Ending date: 10/19/2018 (Discontinued) dextroamphetamine-amphetamine (ADDERALL XR) 30 mg 24 hr capsule Dose: 30 mg EVERY MORNING Starting date: 10/21/2018 Ending date: 11/17/2018 (Discontinued) amphetamine-dextroamphetamine XR (ADDERALL XR) 30 mg 24 hr capsule Dose: 30 mg EVERY MORNING Starting date: 11/17/2018 Ending date: 12/18/2018 (Discontinued) amphetamine-dextroamphetamine XR (ADDERALL XR) 30 mg 24 hr capsule Dose: 30 mg EVERY MORNING Starting date: 12/18/2018 Ending date: 01/19/2019 (Discontinued) amphetamine-dextroamphetamine XR (ADDERALL XR) 30 mg 24 hr capsule Dose: 30 mg EVERY MORNING Starting date: 01/19/2019 Ending date: 02/17/2019 (Discontinued) amphetamine-dextroamphetamine XR (ADDERALL XR) 30 mg 24 hr capsule Dose: 30 mg EVERY MORNING Starting date: 02/18/2019 Ending date: 03/18/2019 (Discontinued) amphetamine-dextroamphetamine XR (ADDERALL XR) 30 mg 24 hr capsule Dose: 30 mg EVERY MORNING Starting date: 03/18/2019 Ending date: 04/13/2019 (Discontinued) amphetamine-dextroamphetamine XR (ADDERALL XR) 30 mg 24 hr capsule Dose: 30 mg EVERY MORNING Starting date: 04/13/2019 Ending date: 07/15/2019 (Discontinued) amphetamine-dextroamphetamine XR (ADDERALL XR) 30 mg 24 hr capsule Dose: 30 mg EVERY MORNING Starting date: 05/17/2019 Ending date: 06/16/2019 (Discontinued) amphetamine-dextroamphetamine XR (ADDERALL XR) 30 mg 24 hr capsule Dose: 30 mg EVERY MORNING Starting date: 06/17/2019 Ending date: 07/15/2019 (Discontinued) amphetamine-dextroamphetamine XR (ADDERALL XR) 30 mg 24 hr capsule Dose: 30 mg EVERY MORNING Starting date: 07/15/2019 Ending date: 08/20/2019 (Discontinued) amphetamine-dextroamphetamine XR (ADDERALL XR) 30 mg 24 hr capsule Dose: 30 mg EVERY MORNING Starting date: 08/20/2019 Ending date: 09/17/2019 (Discontinued) amphetamine-dextroamphetamine XR (ADDERALL XR) 30 mg 24 hr capsule Dose: 30 mg EVERY MORNING Starting date: 09/17/2019 Ending date: 10/19/2019 (Discontinued) amphetamine-dextroamphetamine XR (ADDERALL XR) 30 mg 24 hr capsule Dose: 30 mg EVERY MORNING Starting date: 10/19/2019 Ending date: 11/17/2019 (Discontinued) amphetamine-dextroamphetamine XR (ADDERALL XR) 30 mg 24 hr capsule Dose: 30 mg EVERY MORNING Starting date: 11/18/2019 Ending date: 12/22/2019 (Discontinued) amphetamine-dextroamphetamine XR (ADDERALL XR) 30 mg 24 hr capsule Dose: 30 mg EVERY MORNING Starting date: 12/23/2019 Ending date: 01/28/2020 (Discontinued) amphetamine-dextroamphetamine XR (ADDERALL XR) 30 mg 24 hr capsule Dose: 30 mg EVERY MORNING Starting date: 01/28/2020 Ending date: 03/01/2020 (Discontinued) amphetamine-dextroamphetamine XR (ADDERALL XR) 30 mg 24 hr capsule Dose: 30 mg EVERY MORNING Starting date: 03/02/2020 Ending date: 04/07/2020 (Discontinued) amphetamine-dextroamphetamine XR (ADDERALL XR) 30 mg 24 hr capsule Dose: 30 mg EVERY MORNING Starting date: 04/07/2020 Ending date: 05/12/2020 (Discontinued) amphetamine-dextroamphetamine XR (ADDERALL XR) 30 mg 24 hr capsule Dose: 30 mg EVERY MORNING Starting date: 05/12/2020 Ending date: 06/16/2020 (Discontinued) amphetamine-dextroamphetamine XR (ADDERALL XR) 30 mg 24 hr capsule Dose: 30 mg EVERY MORNING Starting date: 06/16/2020 Ending date: 07/21/2020 (Discontinued) amphetamine-dextroamphetamine XR (ADDERALL XR) 30 mg 24 hr capsule Dose: 30 mg EVERY MORNING Starting date: 07/21/2020 Ending date: 08/29/2020 (Discontinued) amphetamine-dextroamphetamine XR (ADDERALL XR) 30 mg 24 hr capsule Dose: 30 mg EVERY MORNING Starting date: 08/29/2020 Ending date: 10/10/2020 (Discontinued) amphetamine-dextroamphetamine XR (ADDERALL XR) 30 mg 24 hr capsule Dose: 30 mg EVERY MORNING Starting date: 10/10/2020 Ending date: 11/18/2020 (Discontinued) amphetamine-dextroamphetamine XR (ADDERALL XR) 30 mg 24 hr capsule Dose: 30 mg EVERY MORNING Starting date: 11/20/2020 Ending date: 2020 (Discontinued) amphetamine-dextroamphetamine XR (ADDERALL XR) 30 mg 24 hr capsule Dose: 30 mg EVERY MORNING Starting date: 01/02/2021 Ending date: 02/10/2021 (Discontinued) amphetamine-dextroamphetamine XR (ADDERALL XR) 30 mg 24 hr capsule Dose: 30 mg EVERY MORNING Starting date: 02/13/2021 Ending date: 03/17/2021 (Discontinued) amphetamine-dextroamphetamine XR (ADDERALL XR) 30 mg 24 hr capsule Dose: 30 mg EVERY MORNING Starting date: 03/17/2021 Ending date: 05/03/2021 (Discontinued) amphetamine-dextroamphetamine XR (ADDERALL XR) 30 mg 24 hr capsule Dose: 30 mg EVERY MORNING Starting date: 05/03/2021 Ending date: 06/13/2021 (Discontinued) amphetamine-dextroamphetamine XR (ADDERALL XR) 30 mg 24 hr capsule Dose: 30 mg EVERY MORNING Starting date: 06/14/2021 Ending date: 07/12/2021 (Discontinued) amphetamine-dextroamphetamine XR (ADDERALL XR) 30 mg 24 hr capsule Dose: 30 mg EVERY MORNING Starting date: 07/12/2021 Ending date: 08/14/2021 (Discontinued) amphetamine-dextroamphetamine XR (ADDERALL XR) 30 mg 24 hr capsule Dose: 30 mg EVERY MORNING Starting date: 08/14/2021 Ending date: 09/11/2021 (Discontinued) amphetamine-dextroamphetamine XR (ADDERALL XR) 30 mg 24 hr capsule Dose: 30 mg EVERY MORNING Starting date: 09/11/2021 Ending date: 10/09/2021 (Discontinued) amphetamine-dextroamphetamine XR (ADDERALL XR) 30 mg 24 hr capsule Dose: 30 mg EVERY MORNING Starting date: 10/09/2021 Ending date: 11/06/2021 (Discontinued) amphetamine-dextroamphetamine XR (ADDERALL XR) 30 mg 24 hr capsule Dose: 30 mg EVERY MORNING Starting date: 11/07/2021 Ending date: 12/07/2021 (Discontinued) amphetamine-dextroamphetamine XR (ADDERALL XR) 30 mg 24 hr capsule Dose: 30 mg EVERY MORNING Starting date: 12/07/2021 Ending date: 01/04/2022 (Discontinued) amphetamine-dextroamphetamine XR (ADDERALL XR) 30 mg 24 hr capsule Dose: 30 mg EVERY MORNING Starting date: 01/04/2022 Ending date: 01/30/2022 (Discontinued) amphetamine-dextroamphetamine XR (ADDERALL XR) 30 mg 24 hr capsule Dose: 30 mg EVERY MORNING Starting date: 01/30/2022 Ending date: 03/05/2022 (Discontinued) amphetamine-dextroamphetamine XR (ADDERALL XR) 30 mg 24 hr capsule Dose: 30 mg EVERY MORNING Starting date: 03/05/2022 Ending date: 04/04/2022 (Discontinued) amphetamine-dextroamphetamine XR (ADDERALL XR) 30 mg 24 hr capsule Dose: 30 mg EVERY MORNING Starting date: 04/04/2022 Ending date: 05/09/2022 (Discontinued) amphetamine-dextroamphetamine XR (ADDERALL XR) 30 mg 24 hr capsule Dose: 30 mg EVERY MORNING Starting date: 05/09/2022 Ending date: 06/06/2022 (Discontinued) amphetamine-dextroamphetamine XR (ADDERALL XR) 30 mg 24 hr capsule Dose: 30 mg EVERY MORNING Starting date: 06/06/2022 Ending date: 06/07/2022 (Discontinued) amphetamine-dextroamphetamine XR (ADDERALL XR) 30 mg 24 hr capsule Dose: 30 mg EVERY MORNING Starting date: 06/07/2022 Ending date: 07/03/2022 (Discontinued) amphetamine-dextroamphetamine XR (ADDERALL XR) 30 mg 24 hr capsule Dose: 30 mg EVERY MORNING Starting date: 07/04/2022 Ending date: 07/09/2022 (Discontinued) amphetamine-dextroamphetamine XR (ADDERALL XR) 30 mg 24 hr capsule Dose: 30 mg EVERY MORNING Starting date: 07/09/2022 Ending date: 08/05/2022 (Discontinued) amphetamine-dextroamphetamine XR (ADDERALL XR) 30 mg 24 hr capsule Dose: 30 mg EVERY MORNING Starting date: 08/06/2022 Ending date: 08/14/2022 (Discontinued) amphetamine-dextroamphetamine XR (ADDERALL XR) 30 mg 24 hr capsule Dose: 30 mg EVERY MORNING Starting date: 08/14/2022 Ending date: 09/09/2022 (Discontinued) amphetamine-dextroamphetamine XR (ADDERALL XR) 30 mg 24 hr capsule Dose: 30 mg EVERY MORNING Starting date: 09/10/2022 Ending date: 10/09/2022 (Discontinued) amphetamine-dextroamphetamine XR (ADDERALL XR) 30 mg 24 hr capsule Dose: 30 mg EVERY MORNING Starting date: 10/10/2022 Ending date: 10/28/2022 (Discontinued) amphetamine-dextroamphetamine XR (ADDERALL XR) 30 mg 24 hr capsule Dose: 30 mg EVERY MORNING Starting date: 11/09/2022 Ending date: 12/10/2022 (Discontinued) amphetamine-dextroamphetamine XR (ADDERALL XR) 30 mg 24 hr capsule Dose: 30 mg EVERY MORNING Starting date: 01/08/2023 Ending date: 02/07/2023 amphetamine-dextroamphetamine XR (ADDERALL XR) 30 mg 24 hr capsule Dose: 30 mg EVERY MORNING Starting date: 12/09/2022 Ending date: 01/28/2023 (Discontinued) amphetamine-dextroamphetamine XR (ADDERALL XR) 30 mg biphasic capsule Dose: 30 mg EVERY MORNING Starting date: 12/10/2022 Ending date: 01/08/2023 (Discontinued) amphetamine-dextroamphetamine XR (ADDERALL XR) 30 mg biphasic capsule Dose: 30 mg EVERY MORNING Starting date: 01/09/2023 Ending date: 02/08/2023 amphetamine-dextroamphetamine XR (ADDERALL XR) 30 mg biphasic capsule Dose: 30 mg EVERY MORNING Starting date: 02/08/2023 Ending date: 03/10/2023 amphetamine-dextroamphetamine XR (ADDERALL XR) 30 mg biphasic capsule Dose: 30 mg EVERY MORNING Starting date: 03/10/2023 Ending date: 04/09/2023 amphetamine-dextroamphetamine XR (ADDERALL XR) 30 mg biphasic capsule Dose: 30 mg EVERY MORNING Starting date: 04/09/2023 Ending date: 05/09/2023 amphetamine-dextroamphetamine XR (ADDERALL XR) 10 mg 24 hr capsule Dose: 10 mg EVERY MORNING Starting date: 09/13/2015 Ending date: 10/11/2015 (Discontinued) amphetamine-dextroamphetamine XR (ADDERALL XR) 10 mg 24 hr capsule Dose: 10 mg EVERY MORNING Starting date: 10/11/2015 Ending date: 03/12/2016 (Discontinued) amphetamine-dextroamphetamine XR (ADDERALL XR) 10 mg 24 hr capsule Dose: 10 mg EVERY MORNING Starting date: 11/10/2015 Ending date: 12/05/2015 (Discontinued) amphetamine-dextroamphetamine XR (ADDERALL XR) 10 mg 24 hr capsule Dose: 10 mg EVERY MORNING Starting date: 12/11/2015 Ending date: 01/09/2016 (Discontinued) amphetamine-dextroamphetamine XR (ADDERALL XR) 10 mg 24 hr capsule Dose: 10 mg EVERY MORNING Starting date: 01/09/2016 Ending date: 03/12/2016 (Discontinued) amphetamine-dextroamphetamine XR (ADDERALL XR) 10 mg 24 hr capsule Dose: 10 mg EVERY MORNING Starting date: 02/09/2016 Ending date: 03/12/2016 (Discontinued) amphetamine-dextroamphetamine XR (ADDERALL XR) 10 mg 24 hr capsule Dose: 10 mg EVERY MORNING Starting date: 03/12/2016 Ending date: 06/06/2016 (Discontinued) amphetamine-dextroamphetamine XR (ADDERALL XR) 10 mg 24 hr capsule Dose: 10 mg EVERY MORNING Starting date: 04/10/2016 Ending date: 06/07/2016 (Discontinued) amphetamine-dextroamphetamine XR (ADDERALL XR) 10 mg 24 hr capsule Dose: 10 mg EVERY MORNING Starting date: 05/09/2016 Ending date: 06/07/2016 (Discontinued) amphetamine-dextroamphetamine XR (ADDERALL XR) 10 mg 24 hr capsule Dose: 10 mg EVERY MORNING Starting date: 06/07/2016 Ending date: 07/09/2016 (Discontinued) amphetamine-dextroamphetamine XR (ADDERALL XR) 10 mg 24 hr capsule Dose: 10 mg EVERY MORNING Starting date: 08/08/2016 Ending date: 09/09/2016 (Discontinued) amphetamine-dextroamphetamine XR (ADDERALL XR) 10 mg 24 hr capsule Dose: 10 mg EVERY MORNING Starting date: 09/07/2016 Ending date: 09/09/2016 (Discontinued) amphetamine-dextroamphetamine XR (ADDERALL XR) 10 mg 24 hr capsule Dose: 10 mg EVERY MORNING Starting date: 07/09/2016 Ending date: 09/09/2016 (Discontinued) amphetamine-dextroamphetamine XR (ADDERALL XR) 10 mg 24 hr capsule Dose: 10 mg EVERY MORNING Starting date: 11/09/2016 Ending date: 12/09/2016 (Discontinued) amphetamine-dextroamphetamine XR (ADDERALL XR) 10 mg 24 hr capsule Dose: 10 mg EVERY MORNING Starting date: 10/10/2016 Ending date: 12/09/2016 (Discontinued) amphetamine-dextroamphetamine XR (ADDERALL XR) 10 mg 24 hr capsule Dose: 10 mg EVERY MORNING Starting date: 09/09/2016 Ending date: 12/09/2016 (Discontinued) amphetamine-dextroamphetamine XR (ADDERALL XR) 10 mg 24 hr capsule Dose: 10 mg EVERY MORNING Starting date: 12/09/2016 Ending date: 01/07/2017 (Discontinued) amphetamine-dextroamphetamine XR (ADDERALL XR) 10 mg 24 hr capsule Dose: 10 mg EVERY MORNING Starting date: 01/07/2017 Ending date: 02/03/2017 (Discontinued) amphetamine-dextroamphetamine XR (ADDERALL XR) 10 mg 24 hr capsule Dose: 10 mg EVERY MORNING Starting date: 02/03/2017 Ending date: 03/14/2017 (Discontinued) amphetamine-dextroamphetamine XR (ADDERALL XR) 10 mg 24 hr capsule Dose: 10 mg EVERY MORNING Starting date: 05/14/2017 Ending date: 06/11/2017 (Discontinued) amphetamine-dextroamphetamine XR (ADDERALL XR) 10 mg 24 hr capsule Dose: 10 mg EVERY MORNING Starting date: 04/13/2017 Ending date: 06/11/2017 (Discontinued) amphetamine-dextroamphetamine XR (ADDERALL XR) 10 mg 24 hr capsule Dose: 10 mg EVERY MORNING Starting date: 03/14/2017 Ending date: 06/11/2017 (Discontinued) amphetamine-dextroamphetamine XR (ADDERALL XR) 10 mg 24 hr capsule Dose: 10 mg EVERY MORNING Starting date: 06/11/2017 Ending date: 09/08/2017 (Discontinued) amphetamine-dextroamphetamine XR (ADDERALL XR) 10 mg 24 hr capsule Dose: 10 mg EVERY MORNING Starting date: 07/11/2017 Ending date: 09/08/2017 (Discontinued) amphetamine-dextroamphetamine XR (ADDERALL XR) 10 mg 24 hr capsule Dose: 10 mg EVERY MORNING Starting date: 08/10/2017 Ending date: 09/08/2017 (Discontinued) amphetamine-dextroamphetamine XR (ADDERALL XR) 10 mg 24 hr capsule Dose: 10 mg EVERY MORNING Starting date: 09/08/2017 Ending date: 09/30/2017 (Discontinued) amphetamine-dextroamphetamine XR (ADDERALL XR) 10 mg 24 hr capsule Dose: 10 mg EVERY MORNING Starting date: 09/30/2017 Ending date: 11/07/2017 (Discontinued) amphetamine-dextroamphetamine XR (ADDERALL XR) 10 mg 24 hr capsule Dose: 10 mg EVERY MORNING Starting date: 11/07/2017 Ending date: 12/08/2017 (Discontinued) amphetamine-dextroamphetamine XR (ADDERALL XR) 10 mg 24 hr capsule Dose: 10 mg EVERY MORNING Starting date: 12/08/2017 Ending date: 03/04/2018 (Discontinued) amphetamine-dextroamphetamine XR (ADDERALL XR) 10 mg 24 hr capsule Dose: 10 mg EVERY MORNING Starting date: 01/07/2018 Ending date: 03/04/2018 (Discontinued) amphetamine-dextroamphetamine XR (ADDERALL XR) 10 mg 24 hr capsule Dose: 10 mg EVERY MORNING Starting date: 02/06/2018 Ending date: 03/04/2018 (Discontinued) amphetamine-dextroamphetamine XR (ADDERALL XR) 10 mg 24 hr capsule Dose: 10 mg EVERY MORNING Starting date: 05/03/2018 Ending date: 05/28/2018 (Discontinued) amphetamine-dextroamphetamine XR (ADDERALL XR) 10 mg 24 hr capsule Dose: 10 mg EVERY MORNING Starting date: 04/03/2018 Ending date: 03/25/2018 (Discontinued) amphetamine-dextroamphetamine XR (ADDERALL XR) 10 mg 24 hr capsule Dose: 10 mg EVERY MORNING Starting date: 03/04/2018 Ending date: 03/25/2018 (Discontinued) amphetamine-dextroamphetamine XR (ADDERALL XR) 10 mg 24 hr capsule Dose: 10 mg EVERY MORNING Starting date: 05/28/2018 Ending date: 06/18/2018 (Discontinued) amphetamine-dextroamphetamine XR (ADDERALL XR) 10 mg 24 hr capsule Dose: 10 mg EVERY MORNING Starting date: 06/18/2018 Ending date: 07/22/2018 (Discontinued) amphetamine-dextroamphetamine XR (ADDERALL XR) 10 mg 24 hr capsule Dose: 10 mg EVERY MORNING Starting date: 07/23/2018 Ending date: 08/20/2018 (Discontinued) amphetamine-dextroamphetamine XR (ADDERALL XR) 10 mg 24 hr capsule Dose: 10 mg EVERY MORNING Starting date: 08/20/2018 Ending date: 09/08/2018 (Discontinued) amphetamine-dextroamphetamine XR (ADDERALL XR) 10 mg 24 hr capsule Dose: 10 mg EVERY MORNING Starting date: 09/08/2018 Ending date: 10/19/2018 (Discontinued) amphetamine-dextroamphetamine XR (ADDERALL XR) 10 mg 24 hr capsule Dose: 10 mg EVERY MORNING Starting date: 10/21/2018 Ending date: 11/17/2018 (Discontinued) amphetamine-dextroamphetamine XR (ADDERALL XR) 10 mg 24 hr capsule Dose: 10 mg EVERY MORNING Starting date: 11/17/2018 Ending date: 12/18/2018 (Discontinued) amphetamine-dextroamphetamine XR (ADDERALL XR) 10 mg 24 hr capsule Dose: 10 mg EVERY MORNING Starting date: 12/18/2018 Ending date: 01/19/2019 (Discontinued) amphetamine-dextroamphetamine XR (ADDERALL XR) 10 mg 24 hr capsule Dose: 10 mg EVERY MORNING Starting date: 01/19/2019 Ending date: 02/17/2019 (Discontinued) amphetamine-dextroamphetamine XR (ADDERALL XR) 10 mg 24 hr capsule Dose: 10 mg EVERY MORNING Starting date: 02/18/2019 Ending date: 03/18/2019 (Discontinued) amphetamine-dextroamphetamine XR (ADDERALL XR) 10 mg 24 hr capsule Dose: 10 mg EVERY MORNING Starting date: 03/18/2019 Ending date: 04/13/2019 (Discontinued) amphetamine-dextroamphetamine XR (ADDERALL XR) 10 mg 24 hr capsule Dose: 10 mg EVERY MORNING Starting date: 04/13/2019 Ending date: 06/01/2019 (Discontinued) amphetamine-dextroamphetamine XR (ADDERALL XR) 10 mg 24 hr capsule Dose: 10 mg EVERY MORNING Starting date: 05/17/2019 Ending date: 06/16/2019 (Discontinued) amphetamine-dextroamphetamine XR (ADDERALL XR) 10 mg 24 hr capsule Dose: 10 mg EVERY MORNING Starting date: 06/17/2019 Ending date: 07/15/2019 (Discontinued) amphetamine-dextroamphetamine XR (ADDERALL XR) 10 mg 24 hr capsule Dose: 10 mg EVERY MORNING Starting date: 07/15/2019 Ending date: 08/20/2019 (Discontinued) amphetamine-dextroamphetamine XR (ADDERALL XR) 10 mg 24 hr capsule Dose: 10 mg EVERY MORNING Starting date: 08/20/2019 Ending date: 09/17/2019 (Discontinued) amphetamine-dextroamphetamine XR (ADDERALL XR) 10 mg 24 hr capsule Dose: 10 mg EVERY MORNING Starting date: 09/17/2019 Ending date: 10/19/2019 (Discontinued) amphetamine-dextroamphetamine XR (ADDERALL XR) 10 mg 24 hr capsule Dose: 10 mg EVERY MORNING Starting date: 10/19/2019 Ending date: 11/17/2019 (Discontinued) amphetamine-dextroamphetamine XR (ADDERALL XR) 10 mg 24 hr capsule Dose: 10 mg EVERY MORNING Starting date: 11/18/2019 Ending date: 12/22/2019 (Discontinued) amphetamine-dextroamphetamine XR (ADDERALL XR) 10 mg 24 hr capsule Dose: 10 mg EVERY MORNING Starting date: 12/23/2019 Ending date: 01/28/2020 (Discontinued) amphetamine-dextroamphetamine XR (ADDERALL XR) 10 mg 24 hr capsule Dose: 10 mg EVERY MORNING Starting date: 01/28/2020 Ending date: 03/01/2020 (Discontinued) amphetamine-dextroamphetamine XR (ADDERALL XR) 10 mg 24 hr capsule Dose: 10 mg EVERY MORNING Starting date: 03/02/2020 Ending date: 04/07/2020 (Discontinued) amphetamine-dextroamphetamine XR (ADDERALL XR) 10 mg 24 hr capsule Dose: 10 mg EVERY MORNING Starting date: 04/07/2020 Ending date: 05/12/2020 (Discontinued) amphetamine-dextroamphetamine XR (ADDERALL XR) 10 mg 24 hr capsule Dose: 10 mg EVERY MORNING Starting date: 05/12/2020 Ending date: 06/16/2020 (Discontinued) amphetamine-dextroamphetamine XR (ADDERALL XR) 10 mg 24 hr capsule Dose: 10 mg EVERY MORNING Starting date: 06/16/2020 Ending date: 07/21/2020 (Discontinued) amphetamine-dextroamphetamine XR (ADDERALL XR) 10 mg 24 hr capsule Dose: 10 mg EVERY MORNING Starting date: 07/21/2020 Ending date: 08/29/2020 (Discontinued) amphetamine-dextroamphetamine XR (ADDERALL XR) 10 mg 24 hr capsule Dose: 10 mg EVERY MORNING Starting date: 08/29/2020 Ending date: 10/10/2020 (Discontinued) amphetamine-dextroamphetamine XR (ADDERALL XR) 10 mg 24 hr capsule Dose: 10 mg EVERY MORNING Starting date: 10/10/2020 Ending date: 11/18/2020 (Discontinued) amphetamine-dextroamphetamine XR (ADDERALL XR) 10 mg 24 hr capsule Dose: 10 mg EVERY MORNING Starting date: 11/20/2020 Ending date: 2020 (Discontinued) amphetamine-dextroamphetamine XR (ADDERALL XR) 10 mg 24 hr capsule Dose: 10 mg EVERY MORNING Starting date: 01/02/2021 Ending date: 02/10/2021 (Discontinued) amphetamine-dextroamphetamine XR (ADDERALL XR) 10 mg 24 hr capsule Dose: 10 mg EVERY MORNING Starting date: 02/13/2021 Ending date: 03/17/2021 (Discontinued) amphetamine-dextroamphetamine XR (ADDERALL XR) 10 mg 24 hr capsule Dose: 10 mg EVERY MORNING Starting date: 03/17/2021 Ending date: 05/03/2021 (Discontinued) amphetamine-dextroamphetamine XR (ADDERALL XR) 10 mg 24 hr capsule Dose: 10 mg EVERY MORNING Starting date: 05/03/2021 Ending date: 06/13/2021 (Discontinued) amphetamine-dextroamphetamine XR (ADDERALL XR) 10 mg 24 hr capsule Dose: 10 mg EVERY MORNING Starting date: 06/14/2021 Ending date: 07/12/2021 (Discontinued) amphetamine-dextroamphetamine XR (ADDERALL XR) 10 mg 24 hr capsule Dose: 10 mg EVERY MORNING Starting date: 07/12/2021 Ending date: 08/14/2021 (Discontinued) amphetamine-dextroamphetamine XR (ADDERALL XR) 10 mg 24 hr capsule Dose: 10 mg EVERY MORNING Starting date: 08/14/2021 Ending date: 09/11/2021 (Discontinued) amphetamine-dextroamphetamine XR (ADDERALL XR) 10 mg 24 hr capsule Dose: 10 mg EVERY MORNING Starting date: 09/11/2021 Ending date: 10/09/2021 (Discontinued) amphetamine-dextroamphetamine XR (ADDERALL XR) 10 mg 24 hr capsule Dose: 10 mg EVERY MORNING Starting date: 10/09/2021 Ending date: 11/06/2021 (Discontinued) amphetamine-dextroamphetamine XR (ADDERALL XR) 10 mg 24 hr capsule Dose: 10 mg EVERY MORNING Starting date: 11/07/2021 Ending date: 12/07/2021 (Discontinued) amphetamine-dextroamphetamine XR (ADDERALL XR) 10 mg 24 hr capsule Dose: 10 mg EVERY MORNING Starting date: 12/07/2021 Ending date: 01/04/2022 (Discontinued) amphetamine-dextroamphetamine XR (ADDERALL XR) 10 mg 24 hr capsule Dose: 10 mg EVERY MORNING Starting date: 01/04/2022 Ending date: 01/30/2022 (Discontinued) amphetamine-dextroamphetamine XR (ADDERALL XR) 10 mg 24 hr capsule Dose: 10 mg EVERY MORNING Starting date: 01/30/2022 Ending date: 03/05/2022 (Discontinued) amphetamine-dextroamphetamine XR (ADDERALL XR) 10 mg 24 hr capsule Dose: 10 mg EVERY MORNING Starting date: 03/05/2022 Ending date: 03/12/2022 (Discontinued) amphetamine-dextroamphetamine XR (ADDERALL XR) 20 mg ORAL 24 hr capsule Dose: 20 mg EVERY MORNING Starting date: 05/28/2011 Ending date: 06/27/2011 (Discontinued) amphetamine-dextroamphetamine XR (ADDERALL XR) 20 mg 24 hr capsule Dose: 40 mg EVERY MORNING Starting date: 06/14/2015 Ending date: 07/11/2015 (Discontinued) amphetamine-dextroamphetamine XR (ADDERALL XR) 20 mg 24 hr capsule Dose: 40 mg EVERY MORNING Starting date: 07/11/2015 Ending date: 09/13/2015 (Discontinued) amphetamine-dextroamphetamine XR (ADDERALL XR) 20 mg 24 hr capsule Dose: 40 mg DAILY Starting date: 09/09/2015 Ending date: 09/13/2015 (Discontinued) amphetamine-dextroamphetamine XR (ADDERALL XR) 20 mg 24 hr capsule Dose: 40 mg DAILY Starting date: 08/11/2015 Ending date: 09/13/2015 (Discontinued) amphetamine-dextroamphetamine XR (ADDERALL XR) 5 mg ORAL 24 hr capsule Dose: 5 mg EVERY MORNING Starting date: 06/05/2011 Ending date: 06/27/2011 (Discontinued) amphetamine-dextroamphetamine XR (ADDERALL XR) 5 mg 24 hr capsule Dose: 5 mg EVERY MORNING Starting date: 10/24/2014 Ending date: 02/16/2015 (Discontinued) amphetamine-dextroamphetamine XR (ADDERALL XR) 5 mg 24 hr capsule Dose: 5 mg EVERY MORNING Starting date: 11/14/2014 Ending date: 02/16/2015 (Discontinued) amphetamine-dextroamphetamine XR (ADDERALL XR) 5 mg 24 hr capsule Dose: 5 mg EVERY MORNING Starting date: 12/15/2014 Ending date: 02/16/2015 (Discontinued) amphetamine-dextroamphetamine XR (ADDERALL XR) 5 mg 24 hr capsule Dose: 5 mg EVERY MORNING Starting date: 01/14/2015 Ending date: 05/12/2015 (Discontinued) amphetamine-dextroamphetamine XR (ADDERALL XR) 5 mg 24 hr capsule Dose: 5 mg EVERY MORNING Starting date: 02/17/2015 Ending date: 05/12/2015 (Discontinued) amphetamine-dextroamphetamine XR (ADDERALL XR) 5 mg 24 hr capsule Dose: 5 mg EVERY MORNING Starting date: 04/18/2015 Ending date: 05/16/2015 (Discontinued) amphetamine-dextroamphetamine XR (ADDERALL XR) 5 mg 24 hr capsule Dose: 5 mg EVERY MORNING Starting date: 03/19/2015 Ending date: 05/10/2015 (Discontinued) amphetamine-dextroamphetamine XR (ADDERALL XR) 5 mg 24 hr capsule Dose: 5 mg EVERY MORNING Starting date: 05/16/2015 Ending date: 09/13/2015 (Discontinued) atomoxetine (STRATTERA) 40 mg capsule Dose: 40 mg DAILY (NOTE: This is a starter dose. Take 1 daily for the first 3 days.) Starting date: 07/31/2012 Ending date: 09/30/2012 (Discontinued) atomoxetine (STRATTERA) 40 mg capsule Dose: 80 mg DAILY Starting date: 08/04/2012 Ending date: 08/28/2012 (Discontinued) atomoxetine (STRATTERA) 40 mg capsule Dose: 80 mg DAILY Starting date: 08/28/2012 Ending date: 09/26/2012 (Discontinued) atomoxetine (STRATTERA) 40 mg capsule Dose: 80 mg DAILY Starting date: 09/26/2012 Ending date: 10/02/2012 (Discontinued) Atomoxetine (STRATTERA) 80 mg capsule Dose: 80 mg DAILY Starting date: 10/02/2012 Ending date: 11/19/2012 (Discontinued) CONCERTA 18 MG TAB Dose: Take one(1) tablet daily at 8 pm Starting date: 01/08/2006 Ending date: 03/05/2006 (Discontinued) CONCERTA 18 MG 24 HR TAB Dose: Take one(1) tablet daily. Starting date: 04/15/2006 Ending date: 05/19/2006 (Discontinued) CONCERTA 18 MG 24 HR TAB Dose: Take one(1) tablet daily. Starting date: 05/19/2006 Ending date: 06/17/2006 (Discontinued) CONCERTA 18 MG 24 HR TAB Dose: Take one(1) tablet daily. Starting date: 06/17/2006 Ending date: 07/21/2006 (Discontinued) CONCERTA 18 MG 24 HR TAB Dose: Take one(1) tablet daily. Starting date: 07/21/2006 Ending date: 08/19/2006 (Discontinued) CONCERTA 18 MG 24 HR TAB Dose: Take one(1) tablet daily. Starting date: 08/19/2006 Ending date: 09/19/2006 (Discontinued) CONCERTA 18 MG 24 HR TAB Dose: Take one(1) tablet daily. Starting date: 09/19/2006 Ending date: 10/27/2006 (Discontinued) methylphenidate ER (CONCERTA) 18 mg ORAL TO24 Dose: Take one(1) tablet daily. Starting date: 10/27/2006 Ending date: 11/20/2006 (Discontinued) methylphenidate ER (CONCERTA) 18 mg ORAL TO24 Dose: 1 po each am Starting date: 11/20/2006 Ending date: 12/25/2006 (Discontinued) methylphenidate ER (CONCERTA) 18 mg ORAL TO24 Dose: 1 po each am Starting date: 12/25/2006 Ending date: 01/30/2007 (Discontinued) methylphenidate ER (CONCERTA) 18 mg ORAL TO24 Dose: 1 po each am Starting date: 01/30/2007 Ending date: 02/28/2007 (Discontinued) methylphenidate ER (CONCERTA) 18 mg ORAL TO24 Dose: 1 po each am Starting date: 02/28/2007 Ending date: 03/26/2007 (Discontinued) methylphenidate ER (CONCERTA) 18 mg ORAL TO24 Dose: 1 po each am Starting date: 03/26/2007 Ending date: 04/29/2007 (Discontinued) methylphenidate ER (CONCERTA) 18 mg ORAL TO24 Dose: 1 po each am Starting date: 04/29/2007 Ending date: 06/01/2007 (Discontinued) methylphenidate hcl(CONCERTA 18 MG 24 HR TAB) Dose: 1 po each am Starting date: 06/01/2007 Ending date: 06/25/2007 (Discontinued) methylphenidate hcl(CONCERTA 18 MG 24 HR TAB) Dose: 1 po each am Starting date: 06/25/2007 Ending date: 07/22/2007 (Discontinued) methylphenidate hcl(CONCERTA 18 MG 24 HR TAB) Dose: 1 po each am Starting date: 06/25/2007 Ending date: 07/25/2007 methylphenidate hcl(CONCERTA 18 MG 24 HR TAB) Dose: 1 po each am Starting date: 07/22/2007 Ending date: 08/21/2007 CONCERTA 27 MG 24 HR TAB Dose: Take one(1) tablet daily on an empty stomach Starting date: 02/18/2006 Ending date: 03/05/2006 (Discontinued) CONCERTA 27 MG 24 HR TAB Dose: Take one(1) tablet daily. Starting date: 04/15/2006 Ending date: 05/19/2006 (Discontinued) CONCERTA 27 MG 24 HR TAB Dose: Take one(1) tablet daily. Starting date: 05/19/2006 Ending date: 06/17/2006 (Discontinued) CONCERTA 27 MG 24 HR TAB Dose: Take one(1) tablet daily. Starting date: 06/17/2006 Ending date: 07/21/2006 (Discontinued) CONCERTA 27 MG 24 HR TAB Dose: Take one(1) tablet daily. Starting date: 07/21/2006 Ending date: 08/19/2006 (Discontinued) CONCERTA 27 MG 24 HR TAB Dose: Take one(1) tablet daily. Starting date: 08/19/2006 Ending date: 09/19/2006 (Discontinued) CONCERTA 27 MG 24 HR TAB Dose: Take one(1) tablet daily. Starting date: 09/19/2006 Ending date: 10/27/2006 (Discontinued) methylphenidate ER (CONCERTA) 27 mg ORAL TO24 Dose: Take one(1) tablet daily. Starting date: 10/27/2006 Ending date: 11/20/2006 (Discontinued) methylphenidate ER (CONCERTA) 27 mg ORAL TO24 Dose: 1 po each am Starting date: 11/20/2006 Ending date: 12/25/2006 (Discontinued) methylphenidate ER (CONCERTA) 27 mg ORAL TO24 Dose: 1 po each am Starting date: 12/25/2006 Ending date: 01/30/2007 (Discontinued) methylphenidate ER (CONCERTA) 27 mg ORAL TO24 Dose: 1 po each am Starting date: 01/30/2007 Ending date: 02/28/2007 (Discontinued) methylphenidate ER (CONCERTA) 27 mg ORAL TO24 Dose: 1 po each am Starting date: 02/28/2007 Ending date: 03/26/2007 (Discontinued) methylphenidate ER (CONCERTA) 27 mg ORAL TO24 Dose: 1 po each am Starting date: 03/26/2007 Ending date: 04/29/2007 (Discontinued) methylphenidate ER (CONCERTA) 27 mg ORAL TO24 Dose: 1 po each am Starting date: 04/29/2007 Ending date: 06/01/2007 (Discontinued) methylphenidate hcl(CONCERTA 27 MG 24 HR TAB) Dose: 1 po each am Starting date: 06/01/2007 Ending date: 06/25/2007 (Discontinued) methylphenidate hcl(CONCERTA 27 MG 24 HR TAB) Dose: 1 po each am Starting date: 06/25/2007 Ending date: 07/22/2007 (Discontinued) methylphenidate hcl(CONCERTA 27 MG 24 HR TAB) Dose: 1 po each am Starting date: 06/25/2007 Ending date: 07/25/2007 methylphenidate hcl(CONCERTA 27 MG 24 HR TAB) Dose: 1 po each am Starting date: 07/22/2007 Ending date: 08/21/2007 methylphenidate hcl(CONCERTA 27 MG 24 HR TAB) Dose: 1 po each am Starting date: 08/27/2007 Ending date: 10/14/2007 (Discontinued) CONCERTA 36 MG 24 HR TAB Dose: 1 po each am Starting date: 03/05/2006 Ending date: 03/27/2006 (Discontinued) CONCERTA 36 MG 24 HR TAB Dose: 1 po each am Starting date: 03/27/2006 Ending date: 04/15/2006 (Discontinued) methylphenidate hcl(CONCERTA 36 MG 24 HR TAB) Dose: 1 po each am Starting date: 09/17/2007 Ending date: 10/14/2007 (Discontinued) methylphenidate hcl(CONCERTA 36 MG 24 HR TAB) Dose: 1 po each am Starting date: 10/14/2007 Ending date: 11/11/2007 (Discontinued) methylphenidate hcl(CONCERTA 36 MG 24 HR TAB) Dose: 1 po each am Starting date: 11/11/2007 Ending date: 12/14/2007 (Discontinued) methylphenidate hcl(CONCERTA 36 MG 24 HR TAB) Dose: 1 po each am Starting date: 12/14/2007 Ending date: 01/05/2008 (Discontinued) methylphenidate hcl(CONCERTA 36 MG 24 HR TAB) Dose: 1 po each am Starting date: 01/05/2008 Ending date: 01/11/2008 (Discontinued) methylphenidate hcl(CONCERTA 36 MG 24 HR TAB) Dose: 2 po each am Starting date: 09/22/2008 Ending date: 10/06/2008 (Discontinued) methylphenidate hcl(CONCERTA 36 MG 24 HR TAB) Dose: 2 po each am Starting date: 10/06/2008 Ending date: 10/21/2008 (Discontinued) methylphenidate hcl(CONCERTA 36 MG 24 HR TAB) Dose: 2 po each am Starting date: 10/21/2008 Ending date: 11/18/2008 (Discontinued) methylphenidate hcl(CONCERTA 36 MG 24 HR TAB) Dose: 2 po each am Starting date: 11/18/2008 Ending date: 12/16/2008 (Discontinued) methylphenidate hcl(CONCERTA 36 MG 24 HR TAB) Dose: 2 po each am Starting date: 12/16/2008 Ending date: 01/13/2009 (Discontinued) methylphenidate hcl(CONCERTA 36 MG 24 HR TAB) Dose: 2 po each am Starting date: 01/13/2009 Ending date: 02/14/2009 (Discontinued) methylphenidate hcl(CONCERTA 36 MG 24 HR TAB) Dose: 2 po each am Starting date: 02/14/2009 Ending date: 03/13/2009 (Discontinued) methylphenidate hcl(CONCERTA 36 MG 24 HR TAB) Dose: 2 po each am Starting date: 03/13/2009 Ending date: 04/10/2009 (Discontinued) methylphenidate hcl(CONCERTA 36 MG 24 HR TAB) Dose: 2 po each am Starting date: 04/10/2009 Ending date: 04/14/2009 (Discontinued) methylphenidate hcl(CONCERTA 36 MG 24 HR TAB) Dose: 2 po each am Starting date: 04/14/2009 Ending date: 04/14/2009 (Discontinued) methylphenidate hcl(CONCERTA 36 MG 24 HR TAB) Dose: 2 po each am Starting date: 04/14/2009 Ending date: 05/11/2009 (Discontinued) methylphenidate hcl(CONCERTA 36 MG 24 HR TAB) Dose: 2 po each am Starting date: 05/11/2009 Ending date: 06/06/2009 (Discontinued) methylphenidate hcl(CONCERTA 36 MG 24 HR TAB) Dose: 2 po each am Starting date: 06/06/2009 Ending date: 07/05/2009 (Discontinued) methylphenidate hcl(CONCERTA 36 MG 24 HR TAB) Dose: 2 po each am Starting date: 07/05/2009 Ending date: 08/03/2009 (Discontinued) methylphenidate hcl(CONCERTA 36 MG 24 HR TAB) Dose: 2 po each am Starting date: 08/03/2009 Ending date: 08/30/2009 (Discontinued) methylphenidate hcl(CONCERTA 36 MG 24 HR TAB) Dose: 2 po each am Starting date: 08/30/2009 Ending date: 09/25/2009 (Discontinued) methylphenidate hcl(CONCERTA 36 MG 24 HR TAB) Dose: 2 po each am Starting date: 09/25/2009 Ending date: 10/23/2009 (Discontinued) methylphenidate hcl(CONCERTA 36 MG 24 HR TAB) Dose: 2 po each am Starting date: 10/23/2009 Ending date: 11/16/2009 (Discontinued) methylphenidate hcl(CONCERTA 36 MG 24 HR TAB) Dose: 2 po each am Starting date: 11/16/2009 Ending date: 12/15/2009 (Discontinued) methylphenidate hcl(CONCERTA 36 MG 24 HR TAB) Dose: 2 po each am Starting date: 12/15/2009 Ending date: 01/08/2010 (Discontinued) methylphenidate hcl(CONCERTA 36 MG 24 HR TAB) Dose: 2 po each am Starting date: 01/08/2010 Ending date: 02/05/2010 (Discontinued) methylphenidate hcl(CONCERTA 36 MG 24 HR TAB) Dose: 2 po each am Starting date: 02/05/2010 Ending date: 03/01/2010 (Discontinued) methylphenidate hcl(CONCERTA 36 MG 24 HR TAB) Dose: 2 po each am Starting date: 03/01/2010 Ending date: 03/20/2010 (Discontinued) methylphenidate hcl(CONCERTA 36 MG 24 HR TAB) Dose: 2 po each am Starting date: 03/20/2010 Ending date: 04/16/2010 (Discontinued) FOCALIN XR 10 MG CAP Dose: Take one(1) tablet daily. Starting date: 06/13/2005 Ending date: 06/25/2005 (Discontinued) FOCALIN XR 10 MG CAP Dose: Take one(1) tablet daily. Starting date: 06/25/2005 Ending date: 07/29/2005 (Discontinued) FOCALIN XR 10 MG CAP Dose: Take one(1) tablet daily. Starting date: 07/29/2005 Ending date: 08/27/2005 (Discontinued) FOCALIN XR 10 MG CAP Dose: Take one(1) tablet daily. Starting date: 08/27/2005 Ending date: 09/14/2005 (Discontinued) FOCALIN XR 10 MG CAP Dose: Take one(1) tablet daily. Starting date: 09/14/2005 Ending date: 10/21/2005 (Discontinued) FOCALIN XR 10 MG CAP Dose: Take one(1) tablet daily. Starting date: 10/21/2005 Ending date: 01/08/2006 (Discontinued) methylphenidate (RITALIN) 20 mg ORAL tablet Dose: 1 po approx. 3-4 pm prn Starting date: 04/16/2010 Ending date: 05/10/2010 (Discontinued) methylphenidate (RITALIN) 20 mg ORAL tablet Dose: 1 po approx. 3-4 pm prn Starting date: 05/10/2010 Ending date: 06/05/2010 (Discontinued) methylphenidate (RITALIN) 20 mg ORAL tablet Dose: 1 po approx. 3-4 pm prn Starting date: 06/05/2010 Ending date: 06/29/2010 (Discontinued) methylphenidate (RITALIN) 20 mg ORAL tablet Dose: 1 po approx. 3-4 pm prn Starting date: 06/29/2010 Ending date: 07/26/2010 (Discontinued) methylphenidate (RITALIN) 20 mg ORAL tablet Dose: 1 po approx. 3-4 pm prn Starting date: 07/26/2010 Ending date: 08/17/2010 (Discontinued) methylphenidate (RITALIN) 20 mg ORAL tablet Dose: 1 po approx. 3-4 pm prn Starting date: 08/17/2010 Ending date: 09/11/2010 (Discontinued) methylphenidate (RITALIN) 20 mg ORAL tablet Dose: 20 mg Take at approx. 3-4 pm prn. Starting date: 09/11/2010 Ending date: 10/04/2010 (Discontinued) methylphenidate (RITALIN) 20 mg ORAL tablet Dose: 20 mg Take at approx. 3-4 pm prn. Starting date: 10/04/2010 Ending date: 10/27/2010 (Discontinued) methylphenidate (RITALIN) 20 mg ORAL tablet Dose: 20 mg Take at approx. 3-4 pm prn. Starting date: 10/27/2010 Ending date: 11/22/2010 (Discontinued) methylphenidate (RITALIN) 20 mg ORAL tablet Dose: 20 mg Take at approx. 3-4 pm prn. Starting date: 11/22/2010 Ending date: 12/17/2010 (Discontinued) methylphenidate (RITALIN) 20 mg ORAL tablet Dose: 20 mg Take at approx. 3-4 pm prn. Starting date: 12/17/2010 Ending date: 01/10/2011 (Discontinued) methylphenidate (RITALIN) 20 mg ORAL tablet Dose: 20 mg Take at approx. 3-4 pm prn. Starting date: 01/10/2011 Ending date: 02/04/2011 (Discontinued) methylphenidate (RITALIN) 20 mg ORAL tablet Dose: 20 mg Take at approx. 3-4 pm prn. Starting date: 02/04/2011 Ending date: 02/28/2011 (Discontinued) methylphenidate (RITALIN) 20 mg ORAL tablet Dose: 20 mg Take at approx. 3-4 pm prn. Starting date: 02/28/2011 Ending date: 03/22/2011 (Discontinued) methylphenidate (RITALIN) 20 mg ORAL tablet Dose: 20 mg Take at approx. 3-4 pm prn. Starting date: 03/22/2011 Ending date: 04/16/2011 (Discontinued) methylphenidate (RITALIN) 20 mg ORAL tablet Dose: 20 mg Take at approx. 3-4 pm prn. Starting date: 04/16/2011 Ending date: 05/10/2011 (Discontinued) methylphenidate (RITALIN) 20 mg ORAL tablet Dose: 20 mg Take at approx. 3-4 pm prn. Starting date: 05/10/2011 Ending date: 06/04/2011 (Discontinued) methylphenidate (RITALIN) 20 mg ORAL tablet Dose: 20 mg Take at approx. 3-4 pm prn. Starting date: 06/04/2011 Ending date: 06/27/2011 (Discontinued) methylphenidate (RITALIN) 20 mg ORAL tablet Dose: 20 mg Take at approx. 3-4 pm prn. Starting date: 06/27/2011 Ending date: 07/29/2011 (Discontinued) methylphenidate (RITALIN) 20 mg ORAL tablet Dose: 20 mg Take at approx. 3-4 pm prn. Starting date: 07/29/2011 Ending date: 08/23/2011 (Discontinued) methylphenidate (RITALIN) 20 mg ORAL tablet Dose: 20 mg Take at approx. 3-4 pm prn. Starting date: 08/23/2011 Ending date: 09/17/2011 (Discontinued) methylphenidate (RITALIN) 20 mg ORAL tablet Dose: 20 mg Take at approx. 3-4 pm prn. Starting date: 09/17/2011 Ending date: 10/17/2011 (Discontinued) methylphenidate (RITALIN) 20 mg ORAL tablet Dose: 20 mg Take at approx. 3-4 pm prn. Starting date: 10/17/2011 Ending date: 11/16/2011 (Discontinued) methylphenidate (RITALIN) 20 mg tablet Dose: 20 mg Take at approx. 3-4 pm prn. Starting date: 11/16/2011 Ending date: 12/16/2011 (Discontinued) methylphenidate (RITALIN) 20 mg tablet Dose: Take 1 tablet by mouth. Take at approx. 3-4 pm prn. Starting date: 12/16/2011 Ending date: 01/13/2012 (Discontinued) methylphenidate (RITALIN) 20 mg tablet Dose: Take 1 tablet by mouth. Take at approx. 3-4 pm prn. Starting date: 01/13/2012 Ending date: 02/10/2012 (Discontinued) methylphenidate (RITALIN) 20 mg tablet Dose: Take 1 tablet by mouth. Take at approx. 3-4 pm prn. Starting date: 02/10/2012 Ending date: 03/11/2012 (Discontinued) methylphenidate (RITALIN) 20 mg tablet Dose: Take 1 tablet by mouth. Take at approx. 3-4 pm prn. Starting date: 03/11/2012 Ending date: 04/08/2012 (Discontinued) methylphenidate (RITALIN) 20 mg tablet Dose: Take 1 tablet by mouth. Take at approx. 3-4 pm prn. Starting date: 04/08/2012 Ending date: 05/07/2012 (Discontinued) methylphenidate (RITALIN) 20 mg tablet Dose: Take 1 tablet by mouth. Take at approx. 3-4 pm prn. Starting date: 05/07/2012 Ending date: 06/04/2012 (Discontinued) methylphenidate (RITALIN) 20 mg tablet Dose: Take 1 tablet by mouth. Take at approx. 3-4 pm prn. Starting date: 06/04/2012 Ending date: 07/03/2012 (Discontinued) methylphenidate (RITALIN) 20 mg tablet Dose: Take 1 tablet by mouth. Take at approx. 3-4 pm prn. Starting date: 07/03/2012 Ending date: 07/31/2012 (Discontinued) methylphenidate (RITALIN) 20 mg tablet Dose: Take 1 tablet by mouth. Take at approx. 3-4 pm prn. Starting date: 07/31/2012 Ending date: 08/28/2012 (Discontinued) methylphenidate (RITALIN) 20 mg tablet Dose: Take 1 tablet by mouth. Take at approx. 3-4 pm prn. Starting date: 08/28/2012 Ending date: 09/26/2012 (Discontinued) methylphenidate (RITALIN) 20 mg tablet Dose: 20 mg NEEDED Take at approx. 3-4 pm. Starting date: 09/26/2012 Ending date: 10/24/2012 (Discontinued) methylphenidate (RITALIN) 20 mg tablet Dose: 20 mg NEEDED Take at approx. 3-4 pm. Starting date: 10/24/2012 Ending date: 11/21/2012 (Discontinued) methylphenidate (RITALIN) 20 mg tablet Dose: 20 mg NEEDED Take at approx. 3-4 pm. Starting date: 11/21/2012 Ending date: 12/22/2012 (Discontinued) methylphenidate (RITALIN) 20 mg tablet Dose: 20 mg NEEDED Take at approx. 3-4 pm. Starting date: 12/22/2012 Ending date: 01/19/2013 (Discontinued) methylphenidate (RITALIN) 20 mg tablet Dose: 20 mg NEEDED Take at approx. 3-4 pm. Starting date: 01/19/2013 Ending date: 02/18/2013 (Discontinued) methylphenidate (RITALIN) 20 mg tablet Dose: 20 mg NEEDED Take at approx. 3-4 pm. Starting date: 02/18/2013 Ending date: 03/22/2013 (Discontinued) methylphenidate (RITALIN) 20 mg tablet Dose: 20 mg NEEDED Take at approx. 3-4 pm. Starting date: 03/22/2013 Ending date: 04/19/2013 (Discontinued) methylphenidate (RITALIN) 20 mg tablet Dose: 20 mg NEEDED Take at approx. 3-4 pm. Starting date: 04/19/2013 Ending date: 05/18/2013 (Discontinued) methylphenidate (RITALIN) 20 mg tablet Dose: 20 mg NEEDED Take at approx. 3-4 pm. Starting date: 05/18/2013 Ending date: 06/15/2013 (Discontinued) methylphenidate (RITALIN) 20 mg tablet Dose: 20 mg NEEDED Take at approx. 3-4 pm. Starting date: 06/15/2013 Ending date: 07/14/2013 (Discontinued) methylphenidate (RITALIN) 20 mg tablet Dose: 20 mg NEEDED Take at approx. 3-4 pm. Starting date: 07/14/2013 Ending date: 08/12/2013 (Discontinued) methylphenidate (RITALIN) 20 mg tablet Dose: 20 mg NEEDED Take at approx. 3-4 pm. Starting date: 08/12/2013 Ending date: 09/07/2013 (Discontinued) methylphenidate (RITALIN) 20 mg tablet Dose: 20 mg NEEDED Take at approx. 3-4 pm. Starting date: 09/07/2013 Ending date: 10/06/2013 (Discontinued) methylphenidate (RITALIN) 20 mg tablet Dose: 20 mg NEEDED Take at approx. 3-4 pm. Starting date: 10/06/2013 Ending date: 11/03/2013 (Discontinued) methylphenidate (RITALIN) 20 mg tablet Dose: 20 mg NEEDED Take at approx. 3-4 pm. Starting date: 11/03/2013 Ending date: 12/02/2013 (Discontinued) methylphenidate (RITALIN) 20 mg tablet Dose: 20 mg NEEDED Take at approx. 3-4 pm. Starting date: 12/02/2013 Ending date: 12/29/2013 (Discontinued) methylphenidate (RITALIN) 20 mg tablet Dose: 20 mg NEEDED Take at approx. 3-4 pm. Starting date: 12/29/2013 Ending date: 01/28/2014 (Discontinued) methylphenidate (RITALIN) 20 mg tablet Dose: 20 mg NEEDED Take at approx. 3-4 pm. Starting date: 01/28/2014 Ending date: 03/01/2014 (Discontinued) methylphenidate (RITALIN) 20 mg tablet Dose: 20 mg NEEDED Take at approx. 3-4 pm. Starting date: 03/01/2014 Ending date: 03/28/2014 (Discontinued) methylphenidate (RITALIN) 20 mg tablet Dose: 20 mg NEEDED Take at approx. 3-4 pm. Starting date: 03/28/2014 Ending date: 04/22/2014 (Discontinued) methylphenidate (RITALIN) 20 mg tablet Dose: 20 mg NEEDED Take at approx. 3-4 pm. Starting date: 04/22/2014 Ending date: 06/09/2014 (Discontinued) methylphenidate (RITALIN) 20 mg tablet Dose: 20 mg NEEDED Take at approx. 3-4 pm. Starting date: 04/22/2014 Ending date: 04/22/2014 (Discontinued) methylphenidate (RITALIN) 20 mg tablet Dose: 20 mg NEEDED Take at approx. 3-4 pm. Starting date: 04/22/2014 Ending date: 04/22/2014 (Discontinued) methylphenidate (RITALIN) 20 mg tablet Dose: 20 mg NEEDED Take at approx. 3-4 pm. Starting date: 06/22/2014 Ending date: 06/09/2014 (Discontinued) methylphenidate (RITALIN) 20 mg tablet Dose: 20 mg NEEDED Take at approx. 3-4 pm. Starting date: 05/23/2014 Ending date: 07/21/2014 (Discontinued) methylphenidate (RITALIN) 20 mg tablet Dose: 20 mg NEEDED Take at approx. 3-4 pm. Starting date: 07/21/2014 Ending date: 10/18/2014 (Discontinued) methylphenidate (RITALIN) 20 mg tablet Dose: 20 mg NEEDED Take at approx. 3-4 pm. Starting date: 08/22/2014 Ending date: 10/18/2014 (Discontinued) methylphenidate (RITALIN) 20 mg tablet Dose: 20 mg NEEDED Take at approx. 3-4 pm. Starting date: 09/19/2014 Ending date: 10/18/2014 (Discontinued) methylphenidate (RITALIN) 20 mg tablet Dose: 20 mg NEEDED Take at approx. 3-4 pm. Starting date: 10/18/2014 Ending date: 11/17/2014 (Discontinued) methylphenidate (RITALIN) 20 mg tablet Dose: 20 mg NEEDED Take at approx. 3-4 pm. Starting date: 01/18/2015 Ending date: 02/16/2015 (Discontinued) methylphenidate (RITALIN) 20 mg tablet Dose: 20 mg NEEDED Take at approx. 3-4 pm. Starting date: 12/19/2014 Ending date: 02/16/2015 (Discontinued) methylphenidate (RITALIN) 20 mg tablet Dose: 20 mg NEEDED Take at approx. 3-4 pm. Starting date: 11/18/2014 Ending date: 02/16/2015 (Discontinued) methylphenidate (RITALIN) 20 mg tablet Dose: 20 mg NEEDED Take at approx. 3-4 pm. Starting date: 02/17/2015 Ending date: 05/16/2015 (Discontinued) methylphenidate (RITALIN) 20 mg tablet Dose: 20 mg NEEDED Take at approx. 3-4 pm. Starting date: 03/19/2015 Ending date: 05/12/2015 (Discontinued) methylphenidate (RITALIN) 20 mg tablet Dose: 20 mg NEEDED Take at approx. 3-4 pm. Starting date: 04/18/2015 Ending date: 05/12/2015 (Discontinued) methylphenidate (RITALIN) 20 mg tablet Dose: 20 mg NEEDED Take at approx. 3-4 pm. Starting date: 05/16/2015 Ending date: 06/14/2015 (Discontinued) methylphenidate (RITALIN) 20 mg tablet Dose: 20 mg NEEDED Take at approx. 3-4 pm. Starting date: 06/14/2015 Ending date: 07/11/2015 (Discontinued) methylphenidate (RITALIN) 20 mg tablet Dose: 20 mg NEEDED Take at approx. 3-4 pm. Starting date: 07/11/2015 Ending date: 10/11/2015 (Discontinued) methylphenidate (RITALIN) 20 mg tablet Dose: 20 mg NEEDED Take at approx. 3-4 pm. Starting date: 09/09/2015 Ending date: 10/11/2015 (Discontinued) methylphenidate (RITALIN) 20 mg tablet Dose: 20 mg NEEDED Take at approx. 3-4 pm. Starting date: 08/11/2015 Ending date: 10/11/2015 (Discontinued) methylphenidate (RITALIN) 20 mg tablet Dose: 20 mg NEEDED Take at approx. 3-4 pm. Starting date: 11/10/2015 Ending date: 12/05/2015 (Discontinued) methylphenidate (RITALIN) 20 mg tablet Dose: 20 mg NEEDED Take at approx. 3-4 pm. Starting date: 12/11/2015 Ending date: 03/12/2016 (Discontinued) methylphenidate (RITALIN) 20 mg tablet Dose: 20 mg NEEDED Take at approx. 3-4 pm. Starting date: 10/11/2015 Ending date: 03/12/2016 (Discontinued) methylphenidate (RITALIN) 20 mg tablet Dose: 20 mg NEEDED Take at approx. 3-4 pm. Starting date: 01/09/2016 Ending date: 02/09/2016 (Discontinued) methylphenidate (RITALIN) 20 mg tablet Dose: 20 mg NEEDED Take at approx. 3-4 pm. Starting date: 02/09/2016 Ending date: 03/12/2016 (Discontinued) methylphenidate (RITALIN) 20 mg tablet Dose: 20 mg NEEDED Take at approx. 3-4 pm. Starting date: 05/09/2016 Ending date: 06/07/2016 (Discontinued) methylphenidate (RITALIN) 20 mg tablet Dose: 20 mg NEEDED Take at approx. 3-4 pm. Starting date: 04/10/2016 Ending date: 06/07/2016 (Discontinued) methylphenidate (RITALIN) 20 mg tablet Dose: 20 mg NEEDED Take at approx. 3-4 pm. Starting date: 03/12/2016 Ending date: 06/07/2016 (Discontinued) methylphenidate (RITALIN) 20 mg tablet Dose: 20 mg NEEDED Take at approx. 3-4 pm. Starting date: 06/07/2016 Ending date: 07/09/2016 (Discontinued) methylphenidate (RITALIN) 20 mg tablet Dose: 20 mg NEEDED between 3-4 pm Starting date: 08/08/2016 Ending date: 09/09/2016 (Discontinued) methylphenidate (RITALIN) 20 mg tablet Dose: 20 mg NEEDED between 3-4 pm Starting date: 09/07/2016 Ending date: 09/09/2016 (Discontinued) methylphenidate (RITALIN) 20 mg tablet Dose: 20 mg NEEDED Take at approx. 3-4 pm. Starting date: 07/09/2016 Ending date: 09/09/2016 (Discontinued) methylphenidate (RITALIN) 20 mg tablet Dose: 20 mg NEEDED Take at approx. 3-4 pm. Starting date: 11/09/2016 Ending date: 12/09/2016 (Discontinued) methylphenidate (RITALIN) 20 mg tablet Dose: 20 mg NEEDED Take at approx. 3-4 pm. Starting date: 10/10/2016 Ending date: 12/09/2016 (Discontinued) methylphenidate (RITALIN) 20 mg tablet Dose: 20 mg NEEDED Take at approx. 3-4 pm. Starting date: 09/09/2016 Ending date: 12/09/2016 (Discontinued) methylphenidate (RITALIN) 20 mg tablet Dose: 20 mg NEEDED Take at approx. 3-4 pm. Starting date: 12/09/2016 Ending date: 01/07/2017 (Discontinued) methylphenidate (RITALIN) 20 mg tablet Dose: 20 mg NEEDED Take at approx. 3-4 pm. Starting date: 01/07/2017 Ending date: 02/03/2017 (Discontinued) methylphenidate (RITALIN) 20 mg tablet Dose: 20 mg NEEDED Take at approx. 3-4 pm. Starting date: 02/03/2017 Ending date: 03/14/2017 (Discontinued) methylphenidate (RITALIN) 20 mg tablet Dose: 20 mg NEEDED Take at approx. 3-4 pm. Starting date: 05/14/2017 Ending date: 06/11/2017 (Discontinued) methylphenidate (RITALIN) 20 mg tablet Dose: 20 mg NEEDED Take at approx. 3-4 pm. Starting date: 04/13/2017 Ending date: 06/11/2017 (Discontinued) methylphenidate (RITALIN) 20 mg tablet Dose: 20 mg NEEDED Take at approx. 3-4 pm. Starting date: 03/14/2017 Ending date: 06/11/2017 (Discontinued) methylphenidate (RITALIN) 20 mg tablet Dose: 20 mg NEEDED Take at approx. 3-4 pm. Starting date: 06/11/2017 Ending date: 09/08/2017 (Discontinued) methylphenidate (RITALIN) 20 mg tablet Dose: 20 mg NEEDED Take at approx. 3-4 pm. Starting date: 08/10/2017 Ending date: 09/08/2017 (Discontinued) methylphenidate (RITALIN) 20 mg tablet Dose: 20 mg NEEDED Take at approx. 3-4 pm. Starting date: 07/11/2017 Ending date: 09/08/2017 (Discontinued) methylphenidate (RITALIN) 20 mg tablet Dose: 20 mg NEEDED Take at approx. 3-4 pm. Starting date: 09/08/2017 Ending date: 09/30/2017 (Discontinued) methylphenidate (RITALIN) 20 mg tablet Dose: 20 mg NEEDED Take at approx. 3-4 pm. Starting date: 09/30/2017 Ending date: 11/07/2017 (Discontinued) methylphenidate (RITALIN) 20 mg tablet Dose: 20 mg NEEDED Take at approx. 3-4 pm. Starting date: 11/07/2017 Ending date: 12/08/2017 (Discontinued) methylphenidate (RITALIN) 20 mg tablet Dose: 20 mg NEEDED Take at approx. 3-4 pm. Starting date: 12/08/2017 Ending date: 03/04/2018 (Discontinued) methylphenidate (RITALIN) 20 mg tablet Dose: 20 mg NEEDED Take at approx. 3-4 pm. Starting date: 01/07/2018 Ending date: 03/04/2018 (Discontinued) methylphenidate (RITALIN) 20 mg tablet Dose: 20 mg NEEDED Take at approx. 3-4 pm. Starting date: 02/06/2018 Ending date: 03/04/2018 (Discontinued) methylphenidate (RITALIN) 20 mg tablet Dose: 20 mg NEEDED Take at approx. 3-4 pm. Starting date: 05/04/2018 Ending date: 05/28/2018 (Discontinued) methylphenidate (RITALIN) 20 mg tablet Dose: 20 mg NEEDED Take at approx. 3-4 pm. Starting date: 04/03/2018 Ending date: 03/25/2018 (Discontinued) methylphenidate (RITALIN) 20 mg tablet Dose: 20 mg NEEDED Take at approx. 3-4 pm. Starting date: 03/04/2018 Ending date: 03/25/2018 (Discontinued) methylphenidate (RITALIN) 20 mg tablet Dose: 20 mg NEEDED Take at approx. 3-4 pm. Starting date: 05/28/2018 Ending date: 06/18/2018 (Discontinued) methylphenidate (RITALIN) 20 mg tablet Dose: 20 mg NEEDED Take at approx. 3-4 pm. Starting date: 06/18/2018 Ending date: 07/22/2018 (Discontinued) methylphenidate (RITALIN) 20 mg tablet Dose: 20 mg NEEDED Take at approx. 3-4 pm. Starting date: 07/23/2018 Ending date: 08/20/2018 (Discontinued) methylphenidate (RITALIN) 20 mg tablet Dose: 20 mg NEEDED Take at approx. 3-4 pm. Starting date: 08/20/2018 Ending date: 09/08/2018 (Discontinued) methylphenidate (RITALIN) 20 mg tablet Dose: 20 mg NEEDED Take at approx. 3-4 pm. Starting date: 09/08/2018 Ending date: 10/19/2018 (Discontinued) methylphenidate (RITALIN) 20 mg tablet Dose: 20 mg NEEDED Take at approx. 3-4 pm. Starting date: 10/21/2018 Ending date: 11/17/2018 (Discontinued) methylphenidate (RITALIN) 20 mg tablet Dose: 20 mg NEEDED Take at approx. 3-4 pm. Starting date: 11/17/2018 Ending date: 12/18/2018 (Discontinued) methylphenidate (RITALIN) 20 mg tablet Dose: 20 mg NEEDED Take at approx. 3-4 pm. Starting date: 12/18/2018 Ending date: 01/19/2019 (Discontinued) methylphenidate (RITALIN) 20 mg tablet Dose: 20 mg NEEDED Take at approx. 3-4 pm. Starting date: 01/19/2019 Ending date: 02/17/2019 (Discontinued) methylphenidate (RITALIN) 20 mg tablet Dose: 20 mg NEEDED Take at approx. 3-4 pm. Starting date: 02/18/2019 Ending date: 03/18/2019 (Discontinued) methylphenidate (RITALIN) 20 mg tablet Dose: 20 mg NEEDED Take at approx. 3-4 pm. Starting date: 03/18/2019 Ending date: 04/13/2019 (Discontinued) methylphenidate (RITALIN) 20 mg tablet Dose: 20 mg NEEDED Take at approx. 3-4 pm. Starting date: 04/13/2019 Ending date: 07/15/2019 (Discontinued) methylphenidate (RITALIN) 20 mg tablet Dose: 20 mg NEEDED Take at approx. 3-4 pm. Starting date: 05/17/2019 Ending date: 06/16/2019 (Discontinued) methylphenidate (RITALIN) 20 mg tablet Dose: 20 mg NEEDED Take at approx. 3-4 pm. Starting date: 06/17/2019 Ending date: 07/15/2019 (Discontinued) methylphenidate (RITALIN) 20 mg tablet Dose: 20 mg NEEDED Take at approx. 3-4 pm. Starting date: 07/15/2019 Ending date: 08/20/2019 (Discontinued) methylphenidate (RITALIN) 20 mg tablet Dose: 20 mg NEEDED Take at approx. 3-4 pm. Starting date: 08/20/2019 Ending date: 09/17/2019 (Discontinued) methylphenidate (RITALIN) 20 mg tablet Dose: 20 mg NEEDED Take at approx. 3-4 pm. Starting date: 09/17/2019 Ending date: 10/19/2019 (Discontinued) methylphenidate (RITALIN) 20 mg tablet Dose: 20 mg NEEDED Take at approx. 3-4 pm. Starting date: 10/19/2019 Ending date: 11/17/2019 (Discontinued) methylphenidate (RITALIN) 20 mg tablet Dose: 20 mg NEEDED Take at approx. 3-4 pm. Starting date: 11/18/2019 Ending date: 12/22/2019 (Discontinued) methylphenidate (RITALIN) 20 mg tablet Dose: 20 mg NEEDED Take at approx. 3-4 pm. Starting date: 12/23/2019 Ending date: 01/28/2020 (Discontinued) methylphenidate (RITALIN) 20 mg tablet Dose: 20 mg NEEDED Take at approx. 3-4 pm. Starting date: 01/28/2020 Ending date: 03/01/2020 (Discontinued) methylphenidate (RITALIN) 20 mg tablet Dose: 20 mg NEEDED Take at approx. 3-4 pm. Starting date: 03/02/2020 Ending date: 04/07/2020 (Discontinued) methylphenidate (RITALIN) 20 mg tablet Dose: 20 mg NEEDED Take at approx. 3-4 pm. Starting date: 04/07/2020 Ending date: 05/12/2020 (Discontinued) methylphenidate (RITALIN) 20 mg tablet Dose: 20 mg NEEDED Take at approx. 3-4 pm. Starting date: 05/12/2020 Ending date: 06/16/2020 (Discontinued) methylphenidate (RITALIN) 20 mg tablet Dose: 20 mg NEEDED Take at approx. 3-4 pm. Starting date: 06/16/2020 Ending date: 07/21/2020 (Discontinued) methylphenidate (RITALIN) 20 mg tablet Dose: 20 mg NEEDED Take at approx. 3-4 pm. Starting date: 07/21/2020 Ending date: 08/29/2020 (Discontinued) methylphenidate (RITALIN) 20 mg tablet Dose: 20 mg NEEDED Take at approx. 3-4 pm. Starting date: 08/29/2020 Ending date: 10/10/2020 (Discontinued) methylphenidate (RITALIN) 20 mg tablet Dose: 20 mg NEEDED Take at approx. 3-4 pm. Starting date: 10/10/2020 Ending date: 11/18/2020 (Discontinued) methylphenidate (RITALIN) 20 mg tablet Dose: 20 mg NEEDED Take at approx. 3-4 pm. Starting date: 11/20/2020 Ending date: 2020 (Discontinued) methylphenidate (RITALIN) 20 mg tablet Dose: 20 mg NEEDED Take at approx. 3-4 pm. Starting date: 01/02/2021 Ending date: 02/10/2021 (Discontinued) methylphenidate (RITALIN) 20 mg tablet Dose: 20 mg NEEDED Take at approx. 3-4 pm. Starting date: 02/13/2021 Ending date: 03/17/2021 (Discontinued) methylphenidate (RITALIN) 20 mg tablet Dose: 20 mg NEEDED Take at approx. 3-4 pm. Starting date: 03/17/2021 Ending date: 05/03/2021 (Discontinued) methylphenidate (RITALIN) 20 mg tablet Dose: 20 mg NEEDED Take at approx. 3-4 pm. Starting date: 05/03/2021 Ending date: 06/13/2021 (Discontinued) methylphenidate (RITALIN) 20 mg tablet Dose: 20 mg NEEDED Take at approx. 3-4 pm. Starting date: 06/14/2021 Ending date: 07/12/2021 (Discontinued) methylphenidate (RITALIN) 20 mg tablet Dose: 20 mg NEEDED Take at approx. 3-4 pm. Starting date: 07/12/2021 Ending date: 08/14/2021 (Discontinued) methylphenidate (RITALIN) 20 mg tablet Dose: 20 mg NEEDED Take at approx. 3-4 pm. Starting date: 08/14/2021 Ending date: 09/11/2021 (Discontinued) methylphenidate (RITALIN) 20 mg tablet Dose: 20 mg NEEDED Take at approx. 3-4 pm. Starting date: 09/11/2021 Ending date: 10/09/2021 (Discontinued) methylphenidate (RITALIN) 20 mg tablet Dose: 20 mg NEEDED Take at approx. 3-4 pm. Starting date: 10/09/2021 Ending date: 11/06/2021 (Discontinued) methylphenidate (RITALIN) 20 mg tablet Dose: 20 mg NEEDED Take at approx. 3-4 pm. Starting date: 11/07/2021 Ending date: 12/07/2021 (Discontinued) methylphenidate (RITALIN) 20 mg tablet Dose: 20 mg NEEDED Take at approx. 3-4 pm. Starting date: 12/07/2021 Ending date: 01/04/2022 (Discontinued) methylphenidate (RITALIN) 20 mg tablet Dose: 20 mg NEEDED Take at approx. 3-4 pm. Starting date: 01/04/2022 Ending date: 01/30/2022 (Discontinued) methylphenidate (RITALIN) 20 mg tablet Dose: 20 mg NEEDED Take at approx. 3-4 pm. Starting date: 01/30/2022 Ending date: 03/05/2022 (Discontinued) methylphenidate (RITALIN) 20 mg tablet Dose: 20 mg NEEDED Take at approx. 3-4 pm. Starting date: 03/05/2022 Ending date: 04/04/2022 (Discontinued) methylphenidate (RITALIN) 20 mg tablet Dose: 20 mg NEEDED Take at approx. 3-4 pm. Starting date: 04/04/2022 Ending date: 05/09/2022 (Discontinued) methylphenidate (RITALIN) 20 mg tablet Dose: 20 mg NEEDED Take at approx. 3-4 pm. Starting date: 05/09/2022 Ending date: 06/06/2022 (Discontinued) methylphenidate (RITALIN) 20 mg tablet Dose: 20 mg NEEDED Take at approx. 3-4 pm. Starting date: 06/06/2022 Ending date: 07/03/2022 (Discontinued) methylphenidate (RITALIN) 20 mg tablet Dose: 20 mg NEEDED Take at approx. 3-4 pm. Starting date: 07/04/2022 Ending date: 08/05/2022 (Discontinued) methylphenidate (RITALIN) 20 mg tablet Dose: 20 mg NEEDED Take at approx. 3-4 pm. Starting date: 08/06/2022 Ending date: 09/09/2022 (Discontinued) methylphenidate (RITALIN) 20 mg tablet Dose: 20 mg NEEDED Take at approx. 3-4 pm. Starting date: 09/10/2022 Ending date: 10/09/2022 (Discontinued) methylphenidate (RITALIN) 20 mg tablet Dose: 20 mg NEEDED Take at approx. 3-4 pm. Starting date: 10/10/2022 Ending date: 10/28/2022 (Discontinued) methylphenidate (RITALIN) 20 mg tablet Dose: 20 mg NEEDED Take at approx. 3-4 pm. Starting date: 11/09/2022 Ending date: 12/10/2022 (Discontinued) methylphenidate (RITALIN) 20 mg tablet Dose: 20 mg NEEDED Take at approx. 3-4 pm. Starting date: 01/08/2023 Ending date: 01/08/2023 (Discontinued) methylphenidate (RITALIN) 20 mg tablet Dose: 20 mg NEEDED Take at approx. 3-4 pm. Starting date: 12/09/2022 Ending date: 01/28/2023 (Discontinued) methylphenidate (RITALIN) 20 mg tablet Dose: 20 mg NEEDED Take at approx. 3-4 pm. Starting date: 12/10/2022 Ending date: 01/09/2023 methylphenidate (RITALIN) 20 mg tablet Dose: 20 mg NEEDED Take at approx. 3-4 pm. Starting date: 01/09/2023 Ending date: 01/13/2023 (Discontinued) methylphenidate (RITALIN) 20 mg tablet Dose: 20 mg NEEDED Take at approx. 3-4 pm. Starting date: 02/08/2023 Ending date: 03/10/2023 methylphenidate (RITALIN) 20 mg tablet Dose: 20 mg NEEDED Take at approx. 3-4 pm. Starting date: 03/10/2023 Ending date: 04/09/2023 methylphenidate (RITALIN) 20 mg tablet Dose: 20 mg NEEDED Take at approx. 3-4 pm. Starting date: 01/14/2023 Ending date: 02/13/2023 methylphenidate (RITALIN) 20 mg tablet Dose: 20 mg NEEDED Take at approx. 3-4 pm. Starting date: 04/09/2023 Ending date: 05/09/2023 METHYLPHENIDATE 10 MG TAB Dose: one half (1/2) to one(1) tablet twice a day Starting date: 02/10/2006 Ending date: 03/05/2006 (Discontinued) Methylphenidate HCl (CONCERTA) 36 mg ORAL CR tablet Dose: 2 po each am Starting date: 04/16/2010 Ending date: 05/10/2010 (Discontinued) Methylphenidate HCl (CONCERTA) 36 mg ORAL CR tablet Dose: 2 po each am Starting date: 05/10/2010 Ending date: 06/05/2010 (Discontinued) Methylphenidate HCl (CONCERTA) 36 mg ORAL CR tablet Dose: 2 po each am Starting date: 06/05/2010 Ending date: 06/29/2010 (Discontinued) Methylphenidate HCl (CONCERTA) 36 mg ORAL CR tablet Dose: 2 po each am Starting date: 06/29/2010 Ending date: 07/26/2010 (Discontinued) Methylphenidate HCl (CONCERTA) 36 mg ORAL CR tablet Dose: 2 po each am Starting date: 07/26/2010 Ending date: 08/17/2010 (Discontinued) Methylphenidate HCl (CONCERTA) 36 mg ORAL CR tablet Dose: 2 po each am Starting date: 08/17/2010 Ending date: 09/16/2010 Methylphenidate HCl (CONCERTA) 36 mg ORAL CR tablet Dose: 72 mg EVERY MORNING Starting date: 09/11/2010 Ending date: 10/04/2010 (Discontinued) Methylphenidate HCl (CONCERTA) 36 mg ORAL CR tablet Dose: 72 mg EVERY MORNING Starting date: 10/04/2010 Ending date: 10/27/2010 (Discontinued) Methylphenidate HCl (CONCERTA) 36 mg ORAL CR tablet Dose: 72 mg EVERY MORNING Starting date: 10/27/2010 Ending date: 11/22/2010 (Discontinued) Methylphenidate HCl (CONCERTA) 36 mg ORAL CR tablet Dose: 72 mg EVERY MORNING Starting date: 11/22/2010 Ending date: 12/17/2010 (Discontinued) Methylphenidate HCl (CONCERTA) 36 mg ORAL CR tablet Dose: 72 mg EVERY MORNING Starting date: 12/17/2010 Ending date: 01/10/2011 (Discontinued) Methylphenidate HCl (CONCERTA) 36 mg ORAL CR tablet Dose: 72 mg EVERY MORNING Starting date: 01/10/2011 Ending date: 02/04/2011 (Discontinued) Methylphenidate HCl (CONCERTA) 36 mg ORAL CR tablet Dose: 72 mg EVERY MORNING Starting date: 02/04/2011 Ending date: 03/06/2011 (Discontinued) methylphenidate ER (CONCERTA) 36 mg ORAL CR tablet Dose: 72 mg EVERY MORNING Starting date: 02/28/2011 Ending date: 03/22/2011 (Discontinued) methylphenidate ER (CONCERTA) 36 mg ORAL CR tablet Dose: 72 mg EVERY MORNING Starting date: 03/22/2011 Ending date: 04/16/2011 (Discontinued) methylphenidate ER (CONCERTA) 36 mg ORAL CR tablet Dose: 72 mg EVERY MORNING Starting date: 04/16/2011 Ending date: 05/10/2011 (Discontinued) methylphenidate ER (CONCERTA) 36 mg ORAL CR tablet Dose: 72 mg EVERY MORNING Starting date: 05/10/2011 Ending date: 05/28/2011 (Discontinued) methylphenidate hcl(CONCERTA 54 MG 24 HR TAB) Dose: 1 po each am Starting date: 01/11/2008 Ending date: 02/13/2008 (Discontinued) methylphenidate hcl(CONCERTA 54 MG 24 HR TAB) Dose: 1 po each am Starting date: 02/13/2008 Ending date: 03/11/2008 (Discontinued) methylphenidate hcl(CONCERTA 54 MG 24 HR TAB) Dose: 1 po each am Starting date: 03/11/2008 Ending date: 04/09/2008 (Discontinued) methylphenidate hcl(CONCERTA 54 MG 24 HR TAB) Dose: 1 po each am Starting date: 04/09/2008 Ending date: 05/06/2008 (Discontinued) methylphenidate hcl(CONCERTA 54 MG 24 HR TAB) Dose: 1 po each am Starting date: 05/06/2008 Ending date: 06/03/2008 (Discontinued) methylphenidate hcl(CONCERTA 54 MG 24 HR TAB) Dose: 1 po each am Starting date: 06/03/2008 Ending date: 06/22/2008 (Discontinued) methylphenidate hcl(CONCERTA 54 MG 24 HR TAB) Dose: 1 po each am Starting date: 06/22/2008 Ending date: 07/30/2008 (Discontinued) methylphenidate hcl(CONCERTA 54 MG 24 HR TAB) Dose: 1 po each am Starting date: 07/30/2008 Ending date: 08/23/2008 (Discontinued) methylphenidate hcl(CONCERTA 54 MG 24 HR TAB) Dose: 1 po each am Starting date: 08/23/2008 Ending date: 09/22/2008 (Discontinued) methylphenidate hcl(RITALIN 20 MG TAB) Dose: 1 po approx. 3-4 pm prn Starting date: 04/14/2009 Ending date: 05/11/2009 (Discontinued) methylphenidate hcl(RITALIN 20 MG TAB) Dose: 1 po approx. 3-4 pm prn Starting date: 05/11/2009 Ending date: 06/06/2009 (Discontinued) methylphenidate hcl(RITALIN 20 MG TAB) Dose: 1 po approx. 3-4 pm prn Starting date: 06/06/2009 Ending date: 07/05/2009 (Discontinued) methylphenidate hcl(RITALIN 20 MG TAB) Dose: 1 po approx. 3-4 pm prn Starting date: 07/05/2009 Ending date: 08/03/2009 (Discontinued) methylphenidate hcl(RITALIN 20 MG TAB) Dose: 1 po approx. 3-4 pm prn Starting date: 08/03/2009 Ending date: 08/30/2009 (Discontinued) methylphenidate hcl(RITALIN 20 MG TAB) Dose: 1 po approx. 3-4 pm prn Starting date: 08/30/2009 Ending date: 09/25/2009 (Discontinued) methylphenidate hcl(RITALIN 20 MG TAB) Dose: 1 po approx. 3-4 pm prn Starting date: 09/25/2009 Ending date: 10/23/2009 (Discontinued) methylphenidate hcl(RITALIN 20 MG TAB) Dose: 1 po approx. 3-4 pm prn Starting date: 10/23/2009 Ending date: 11/16/2009 (Discontinued) methylphenidate hcl(RITALIN 20 MG TAB) Dose: 1 po approx. 3-4 pm prn Starting date: 11/16/2009 Ending date: 12/15/2009 (Discontinued) methylphenidate hcl(RITALIN 20 MG TAB) Dose: 1 po approx. 3-4 pm prn Starting date: 12/15/2009 Ending date: 01/08/2010 (Discontinued) methylphenidate hcl(RITALIN 20 MG TAB) Dose: 1 po approx. 3-4 pm prn Starting date: 01/08/2010 Ending date: 02/05/2010 (Discontinued) methylphenidate hcl(RITALIN 20 MG TAB) Dose: 1 po approx. 3-4 pm prn Starting date: 02/05/2010 Ending date: 03/01/2010 (Discontinued) methylphenidate hcl(RITALIN 20 MG TAB) Dose: 1 po approx. 3-4 pm prn Starting date: 03/01/2010 Ending date: 03/20/2010 (Discontinued) methylphenidate hcl(RITALIN 20 MG TAB) Dose: 1 po approx. 3-4 pm prn Starting date: 03/20/2010 Ending date: 04/16/2010 (Discontinued) RITALIN 10 MG TAB Dose: Take one(1) tablet daily at 3:30 pm Starting date: 09/14/2005 Ending date: 10/21/2005 (Discontinued) RITALIN 10 MG TAB Dose: Take one(1) tablet daily at 3:30 pm Starting date: 10/21/2005 Ending date: 10/31/2005 (Discontinued) RITALIN 10 MG TAB Dose: Take one(1) tablet po at 7 am,12 noon and then 4 pm Starting date: 10/31/2005 Ending date: 12/13/2005 (Discontinued) RITALIN 10 MG TAB Dose: Take one(1) tablet po at 7 am,12 noon and then 4 pm Starting date: 12/13/2005 Ending date: 01/08/2006 (Discontinued) RITALIN 10 MG TAB Dose: 1 tab po q7 am and 12 noon and then 4 pm Starting date: 01/08/2006 Ending date: 03/05/2006 (Discontinued) RITALIN 5 MG TAB Dose: 1 -2 po at 3pm as needed Starting date: 03/05/2006 Ending date: 03/27/2006 (Discontinued) RITALIN 5 MG TAB Dose: 1 -2 po at 3pm as needed Starting date: 03/27/2006 Ending date: 04/15/2006 (Discontinued) RITALIN 5 MG TAB Dose: 1 -2 po at 3pm as needed Starting date: 04/15/2006 Ending date: 05/15/2006 RITALIN 5 MG TAB Dose: Take 1 or 2 tablet at 3pm prn Starting date: 07/21/2006 Ending date: 08/19/2006 (Discontinued) RITALIN 5 MG TAB Dose: Take 1 or 2 tablet at 3pm prn Starting date: 08/19/2006 Ending date: 10/27/2006 (Discontinued) methylphenidate (RITALIN) 5 mg ORAL Tab Dose: Take 1 or 2 tablet at 3pm prn Starting date: 10/27/2006 Ending date: 11/20/2006 (Discontinued) methylphenidate (RITALIN) 5 mg ORAL Tab Dose: Take 1 or 2 tablet at 3pm prn Starting date: 11/20/2006 Ending date: 12/25/2006 (Discontinued) methylphenidate (RITALIN) 5 mg ORAL Tab Dose: Take 1 or 2 tablet at 3pm prn Starting date: 12/25/2006 Ending date: 01/30/2007 (Discontinued) methylphenidate (RITALIN) 5 mg ORAL Tab Dose: Take 1 or 2 tablet at 3pm prn Starting date: 01/30/2007 Ending date: 02/28/2007 (Discontinued) methylphenidate (RITALIN) 5 mg ORAL Tab Dose: Take 1 or 2 tablet at 3pm prn Starting date: 02/28/2007 Ending date: 03/26/2007 (Discontinued) methylphenidate (RITALIN) 5 mg ORAL Tab Dose: Take 1 or 2 tablet at 3pm prn Starting date: 03/26/2007 Ending date: 04/29/2007 (Discontinued) methylphenidate (RITALIN) 5 mg ORAL Tab Dose: Take 1 or 2 tablet at 3pm prn Starting date: 04/29/2007 Ending date: 06/01/2007 (Discontinued) methylphenidate hcl(RITALIN 5 MG TAB) Dose: Take 1 or 2 tablet at 3pm prn Starting date: 06/01/2007 Ending date: 06/25/2007 (Discontinued) methylphenidate hcl(RITALIN 5 MG TAB) Dose: Take 1 or 2 tablet at 3pm prn Starting date: 06/25/2007 Ending date: 07/22/2007 (Discontinued) methylphenidate hcl(RITALIN 5 MG TAB) Dose: Take 1 or 2 tablet at 3pm prn Starting date: 06/25/2007 Ending date: 07/25/2007 methylphenidate hcl(RITALIN 5 MG TAB) Dose: Take 1 or 2 tablet at 3pm prn Starting date: 07/22/2007 Ending date: 08/27/2007 (Discontinued) methylphenidate hcl(RITALIN 5 MG TAB) Dose: Take 1 or 2 tablet at 3pm prn Starting date: 08/27/2007 Ending date: 10/14/2007 (Discontinued) methylphenidate hcl(RITALIN 5 MG TAB) Dose: Take 1 or 2 tablet at 3pm prn Starting date: 10/14/2007 Ending date: 11/11/2007 (Discontinued) methylphenidate hcl(RITALIN 5 MG TAB) Dose: Take 1 or 2 tablet at 3pm prn Starting date: 11/11/2007 Ending date: 12/14/2007 (Discontinued) methylphenidate hcl(RITALIN 5 MG TAB) Dose: Take 1 or 2 tablet at 3pm prn Starting date: 12/14/2007 Ending date: 01/05/2008 (Discontinued) methylphenidate hcl(RITALIN 5 MG TAB) Dose: Take 1 or 2 tablet at 3pm prn Starting date: 01/05/2008 Ending date: 01/11/2008 (Discontinued) methylphenidate hcl(RITALIN 5 MG TAB) Dose: Take 1 or 2 tablet at 3pm prn Starting date: 01/11/2008 Ending date: 02/13/2008 (Discontinued) methylphenidate hcl(RITALIN 5 MG TAB) Dose: Take 1 or 2 tablet at 3pm prn Starting date: 02/13/2008 Ending date: 03/07/2008 (Discontinued) methylphenidate hcl(RITALIN 5 MG TAB) Dose: Take 1 or 2 tablet at 3pm prn Starting date: 03/07/2008 Ending date: 05/06/2008 (Discontinued) methylphenidate hcl(RITALIN 5 MG TAB) Dose: Take 1 or 2 tablet at 3pm prn Starting date: 05/06/2008 Ending date: 06/03/2008 (Discontinued) methylphenidate hcl(RITALIN 5 MG TAB) Dose: Take 1 or 2 tablet at 3pm prn Starting date: 06/03/2008 Ending date: 06/22/2008 (Discontinued) methylphenidate hcl(RITALIN 5 MG TAB) Dose: Take 1 or 2 tablet at 3pm prn Starting date: 06/22/2008 Ending date: 07/30/2008 (Discontinued) methylphenidate hcl(RITALIN 5 MG TAB) Dose: Take 1 or 2 tablet at 3pm prn Starting date: 07/30/2008 Ending date: 08/23/2008 (Discontinued) methylphenidate hcl(RITALIN 5 MG TAB) Dose: Take 1 or 2 tablet at 3pm prn Starting date: 08/23/2008 Ending date: 09/22/2008 (Discontinued) methylphenidate hcl(RITALIN 5 MG TAB) Dose: Take 1 or 2 tablet at 3pm prn Starting date: 09/22/2008 Ending date: 10/21/2008 (Discontinued) methylphenidate hcl(RITALIN 5 MG TAB) Dose: Take 1 or 2 tablet at 3pm prn Starting date: 10/21/2008 Ending date: 11/18/2008 (Discontinued) methylphenidate hcl(RITALIN 5 MG TAB) Dose: Take 1 or 2 tablet at 3pm prn Starting date: 11/18/2008 Ending date: 12/16/2008 (Discontinued) methylphenidate hcl(RITALIN 5 MG TAB) Dose: Take 1 or 2 tablet at 3pm prn Starting date: 12/16/2008 Ending date: 01/13/2009 (Discontinued) methylphenidate hcl(RITALIN 5 MG TAB) Dose: Take 1 or 2 tablet at 3pm prn Starting date: 01/13/2009 Ending date: 02/14/2009 (Discontinued) methylphenidate hcl(RITALIN 5 MG TAB) Dose: Take 1 or 2 tablet at 3pm prn Starting date: 02/14/2009 Ending date: 03/13/2009 (Discontinued) methylphenidate hcl(RITALIN 5 MG TAB) Dose: Take 1 or 2 tablet at 3pm prn Starting date: 03/13/2009 Ending date: 04/05/2009 (Discontinued) methylphenidate hcl(RITALIN 5 MG TAB) Dose: Take 1 or 2 tablet at 3pm prn Starting date: 04/05/2009 Ending date: 04/14/2009 (Discontinued) Medication marked as long-term Prior RLS Medications (last 20 years) Some values may be hidden. Unless noted otherwise, only the newest values recorded on each date are displayed. RLS Medications HYDROcodone 5 mg - acetaminophen 325 mg tablet (NORCO) Dose: 1-2 tablet ONCE Give 1 tab for moderate pain Give 2 tabs for severe pain Starting date: 07/05/2022 Ending date: 07/05/2022 (Discontinued) morphine 4 mg injection Dose: 4 mg X (PACU ONLY) PRN 2nd Line Therapy for Breakthrough Pain Maximum TOTAL DOSE from ALL orders = 0.15 mg/kg, not to exceed 10 mg May give every 10 minutes as needed Starting date: 05/12/2015 Ending date: 05/12/2015 (Discontinued) Prior Insomnia Medications (last 20 years) Some values may be hidden. Unless noted otherwise, only the newest values recorded on each date are displayed. Insomnia Medications ESCITALOPRAM OXALATE (LEXAPRO ORAL) Dose: Take by mouth. Starting date: Ending date: 03/07/2015 (Discontinued) ESCITALOPRAM OXALATE (LEXAPRO ORAL) Dose: Take 75 mg by mouth. Starting date: Ending date: 11/08/2015 (Discontinued) FLUoxetine (PROZAC) 20 mg capsule Dose: 20 mg DAILY Starting date: 09/24/2013 Ending date: 06/09/2014 (Discontinued) midazolam (PF) injection (VERSED) Dose: Starting date: 07/05/2022 Ending date: 07/06/2022 (Discontinued) PAROXETINE HCL (PAXIL ORAL) Dose: Take by mouth. (Patient not taking as of 02/20/2022 6:09 PM) Starting date: Ending date: 03/12/2022 (Discontinued) zaleplon (SONATA) 5 mg capsule Dose: 5 mg AT BEDTIME Starting date: 11/08/2022 Ending date: 11/10/2022 IMPRESSION/PLAN: Esteban (obstructive sleep apnea) (primary encounter diagnosis) Esteban on cpap Katie Forde is a 21 year old female with past medical history of migraine, Marfan syndrome, ADHD, depression, anxiety, obesity (BMI 40), hypovitaminosis D presenting with sleep concerns of mild ESTEBAN (AHI 5.8, RDI 9.8, supine AHI 7.2, REM AHI 9.8). Sleep disordered breathing symptoms: Snoring, fatigue, daytime napping, may have AM SOTO. The patient started AutoPap 5-10 cm H2O and is benefiting significantly from using device. She only started using device recently. Limitations: Download demonstrates that 95th percentile pressure is near max of 10 cm H2O. Also, her boyfriend does not have a bedside table when she sleeps there on the weekends and does not use her CPAP time. Given the patient's history of Marfan syndrome, there is an increased likelihood of airway flexibility perhaps predisposing the patient to sleep disordered breathing. Furthermore, given the risk of cardiac complications with Marfan syndrome and the increased risk of CVA with moderate or severe ESTEBAN, would be advised to diagnose and treat sleep apnea. -Increase from 5-10 cm H2O to 5-15 cmH2O. - Remember to clean your mask and equipment regularly, as directed. - You should be eligible for new supplies approximately every 3-6 months, depending on your insurance coverage. Contact your Durable Medical Equipment (DME) company for new supplies as needed. - Follow up in 2-3 months with Karlos Jett MD or my associates. [facility] REQUIREMENTS: - Your insurance requires a [id number] follow up visit within a 31-90 day period after starting CPAP. - Your insurance requires compliance with CPAP, which is at least 4 hours per night for 70% of the time. This must be done over a 30 day period and must occur within the initial 31-90 day period after starting CPAP. - Your insurance also requires at least yearly follow ups to continue to pay for CPAP supplies. Karlos Jett MD Staff, [facility] Appt: [phone] Opt 5 Mail: [phone] [place] [address] I spent a total of 30 minutes on the date of the service which included preparing to see the patient, [id number] patient care, completing clinical documentation, obtaining and/or reviewing separately obtained history, performing a medically appropriate examination, counseling and educating the patient/family/caregiver, and ordering medications, tests, or procedures. Activity Duration Current session 22 minutes Total time: 22 minutes* *Based only on time spent in the patient's chart documented in this encounter [facility] 02-19-2023 Miscellaneous Notes Images from the original note were not included. documented in this encounter [facility] 01-31-2023 Note [facility] 01-31-2023 History of Present illness Narrative CMN RECEIVED BY [employer] VIA FAX, COMPLETED, AND PLACED IN PROVIDER MAILBOX FOR SIGNATURE John Paul Saldaña, Administration Assistance 01/31/23 1d4 Pty SENDING CMN: [place] SIGNED AND DATED CMN, FAXED TO DME & CONFIRMATION PAGE RECEIVED: 02/06/23 documented in this encounter [facility] 01-28-2023 Note [facility] 01-28-2023 History of Present illness Narrative SUBJECTIVE: COVID-19 VACCINE(1) Never done DTAP,TDAP,TD(7 - Td or Tdap) due on 03/20/2020 MENINGOCOCCAL B: Consider based on risk(2 of 2 - Risk Bexsero 2-dose series) due on 04/09/2022 HPI Katie Forde is a 22 year old female. PMH significant for ACTIVE PROBLEM LIST Marfan's Syndrome Attention Deficit Hyperactivity Disorder (Adhd), Combined Type Subluxation of Lens Outbursts of Anger Depression Depersonalization Disorder (Hcc) Migraine Without Status Migrainosus, Not Intractable Oppositional Defiant Disorder Bmi (Body Mass Index), Pediatric, 85% to Less Than 95% for Age Bmi (Body Mass Index), Pediatric, Greater Than Or Equal to 95% for Age Lab Test Positive for Detection of Covid-19 Virus Anxiety Pain in Right Foot Obesity, Class III, BMI >= 40 Obesity, Class II, Bmi 35-39.9 Katie Forde is a patient of Dr Smalls, pediatrics. Last seen 05/2022. Previously seen 10/2022 to establish with primary care, Kate Silva MD HPI excerpted from previous visit: She has been followed by specialists. Dr. Karlos Loera sleep disorders, to discuss sleep study results. Gastroenterology, Zuleika Perez PAC, last seen 07/2022 regarding fatty liver. Biopsy completed but not adequate, repeat endorse but declined. She noted fatigue. Vitamin D deficiency noted, repletion endorsed. She was referred to load manager for chronic platelet and white blood cell count elevations. Seen by Dr Burris 07/2022. History of Marfans, seen by Dr Mcallister 09/30/2022. New patient, noted exertional dyspnea and palpitations. Noted history of bilateral dislocated lens with replacements. Last echocardiogram 2016. Follow-up echocardiogram to assess size of ascending aorta and mitral valve. CTA of aorta gated as baseline assessment of ascending aorta measurements. 2-week monitor for possible SVT advised. Follow-up in 3 months. Today reports recurrence of headaches, 2 times per week. Previously was on topiramate for migraines. Would like to resume. Was previously effective. She notes using Aleve [id number] and hemp cream along with sleep helps her headache Seen by gastroenterology. Fatty liver noted. Notes need for weight loss. Notes using elliptical. Plans on joining a gym. She reports shortness of breath persisting for about 1 year. Short of breath with 1 flight of stairs or when spraying deodorant. Stable unchanged from previous. No prior PFTs noted. History of ADHD controlled with current medications. Presents today regarding recheck of ADHD. No adverse effects noted. Helps with concentration. Previously prescribed by plc programmer, Dr. Smalls. Some rare heartburn noted, taking prilosec. Notes currently well controlled on medication but when she stops it heartburn returns. She reports fewer headaches on topiramate but still having 1 or 2/week. Would like to increase the dose. Review of Systems Neurological: Positive for headaches. Psychiatric/Behavioral: Negative for decreased concentration. Objective BP 131/88 Pulse 114 Temp 37 C (98.6 F) Resp 18 Wt 135.2 kg (298 lb) LMP 01/17/2023 SpO2 98% BMI 38.26 kg/m Physical Exam Vitals and nursing note reviewed. Constitutional: Appearance: Normal appearance. HENT: Head: Normocephalic and atraumatic. Eyes: Conjunctiva/sclera: Conjunctivae normal. Neck: Thyroid: No thyromegaly. Vascular: Normal carotid pulses. No JVD. Cardiovascular: Rate and Rhythm: Normal rate and regular rhythm. Pulses: Carotid pulses are 2+ on the right side and 2+ on the left side. Radial pulses are 2+ on the right side and 2+ on the left side. Heart sounds: Normal heart sounds. Pulmonary: Effort: Pulmonary effort is normal. Breath sounds: Normal breath sounds. Abdominal: General: Bowel sounds are normal. Palpations: Abdomen is soft. Musculoskeletal: Right lower leg: No edema. Left lower leg: No edema. Skin: General: Skin is warm and dry. Neurological: General: No focal deficit present. Mental Status: She is alert and oriented to person, place, and time. ALLERGIES No Known Allergies Medication methylphenidate (RITALIN) 20 mg tablet^Take 1 tablet by mouth as needed for up to 30 days. Take at approx. 3-4 pm.^Disp: 30 tablet^Rfl: 0 amphetamine-dextroamphetamine XR (ADDERALL XR) 30 mg biphasic capsule^Take 1 capsule by mouth every morning for 30 days.^Disp: 30 capsule^Rfl: 0 [START ON 02/08/2023] methylphenidate (RITALIN) 20 mg tablet^Take 1 tablet by mouth as needed for up to 30 days. Take at approx. 3-4 pm. Do not start before February 08, 2023.^Disp: 30 tablet^Rfl: 0 [START ON 03/10/2023] methylphenidate (RITALIN) 20 mg tablet^Take 1 tablet by mouth as needed for up to 30 days. Take at approx. 3-4 pm. Do not start before March 10, 2023.^Disp: 30 tablet^Rfl: 0 [START ON 02/08/2023] amphetamine-dextroamphetamine XR (ADDERALL XR) 30 mg biphasic capsule^Take 1 capsule by mouth every morning for 30 days. Do not start before February 08, 2023.^Disp: 30 capsule^Rfl: 0 [START ON 03/10/2023] amphetamine-dextroamphetamine XR (ADDERALL XR) 30 mg biphasic capsule^Take 1 capsule by mouth every morning for 30 days. Do not start before March 10, 2023.^Disp: 30 capsule^Rfl: 0 topiramate (TOPAMAX) 25 mg tablet^Take 1 tablet by mouth once daily.^Disp: 30 tablet^Rfl: 11 amphetamine-dextroamphetamine XR (ADDERALL XR) 30 mg 24 hr capsule^Take 1 capsule by mouth every morning for 30 days. Do not start before January 08, 2023.^Disp: 30 capsule^Rfl: 0 PNV No.40-Iron Fum-FA Cmb No.1 (PNV-SELECT) 27-1 mg tab^Take 1 tablet by mouth once daily.^Disp: 30 tablet^Rfl: 12 medroxyPROGESTERone (PROVERA) 10 mg tablet^Take 1 tablet by mouth once daily. for the - of each month^Disp: 10 tablet^Rfl: 11 CPAP/BIPAP/OTHER^Type .CPAPSettings into a note to see current settings/supplies/DME information.^Disp: 1 Each^Rfl: 0 (Patient not taking: Reported on 01/28/2023) methylphenidate (RITALIN) 20 mg tablet^Take 1 tablet by mouth as needed for up to 30 days. Take at approx. 3-4 pm.^Disp: 30 tablet^Rfl: 0 amphetamine-dextroamphetamine XR (ADDERALL XR) 30 mg 24 hr capsule^Take 1 capsule by mouth every morning for 30 days. Do not start before December 09, 2022.^Disp: 30 capsule^Rfl: 0 methylphenidate (RITALIN) 20 mg tablet^Take 1 tablet by mouth as needed for up to 30 days. Take at approx. 3-4 pm. Do not start before December 09, 2022.^Disp: 30 tablet^Rfl: 0 omeprazole (PRILOSEC) 20 mg capsule^Take 1 capsule by mouth once daily.^Disp: 30 capsule^Rfl: 5 ergocalciferol 50,000 unit capsule (VITAMIN D2, DRISDOL)^Take 1 capsule by mouth one time a week.^Disp: 8 capsule^Rfl: 0 PAST MEDICAL HISTORY Diagnosis Date ADHD (attention deficit hyperactivity disorder) Fatty liver GERD (gastroesophageal reflux disease) Marfan's syndrome VIRAL WARTS NOS 06/25/2008 resolved Social History Tobacco Use Smoking status: Former Types: Cigarettes Quit date: 2021 Years since quittin.5 Smokeless tobacco: Never Tobacco comments: Pt smoked 3 cigarettes daily x 2 months, quit 2021 Vaping Use Vaping Use: current everyday user Substances: Nicotine, Flavoring Devices: Pre-filled or refillable cartridge Substance Use Topics Alcohol use: Not Currently Comment: occasional Drug use: No ASSESSMENT/PLAN: 1. Attention deficit hyperactivity disorder (ADHD), combined type - ICD9: 314.01, ICD10: F90.2 (primary diagnosis) Stable, currently controlled, continue to monitor. Continue current treatment unchanged - METHYLPHENIDATE 20 MG TABLET - DEXTROAMPHETAMINE-AMPHETAMINE ER 30 MG 24HR CAPSULE,EXTEND RELEASE 2. Migraine without status migrainosus, not intractable, unspecified migraine type - ICD9: 346.90, ICD10: G43.909 She notes improved control on topiramate 25 mg but still having about 2 headaches per week. Would like to increase dose. - TOPIRAMATE 50 MG TABLET 3. Heartburn - ICD9: 787.1, ICD10: R12 She notes heartburn currently well controlled. Returns if she stops taking omeprazole. Continue on for now. - OMEPRAZOLE 20 MG CAPSULE,DELAYED RELEASE 3 mo follow up Kate Silva MD - establish 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 APRN.RUBBER STAMP DIES INSPECTOR Medical Decision Making: Problems: Moderate: 2+ stable chronic illnesses Risk: Moderate: Drug management Medical Decision Making Level: 4 - Moderate documented in this encounter [facility] 01-20-2023 Note [facility] 01-13-2023 Note [facility] 01-13-2023 Miscellaneous Notes Pap order faxed to [facility] with demographics, office notes with confirmation. documented in this encounter [facility] 01-13-2023 History of Present illness Narrative HISTORY OF PRESENT ILLNESS: Katie Forde is a 22 year old female here for follow up of leukocytosis, thrombocytosis. Labs reviewed, prior work up. No changes to report CLINICAL IMPRESSION: Leukocytosis, thrombocytosis, suspect reactive RECOMMENDATION/PLAN: 1. Labs in 6 months as ordered. Written and verbal health teaching given to patient, patient verbalizes understanding and agrees with treatment plan. 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 EYE SURGERY HX 05/02/2015 detached retina EYE SURGERY HX 08/19/2018 right sided secondary lens implant LIVER BIOPSY 07/05/2022 PAST SURGICAL HISTORY OF sherwin eyes PAST SURGICAL HISTORY OF right leg broken-surgery FAMILY HISTORY Problem Relation Age of Onset other (Marfan's) Mother None Father other (Marfan's) Brother other (mood issues) Brother Osteoporosis Maternal Grandmother other (Marfan's) Maternal Grandfather None Paternal Grandmother Heart Paternal Grandfather pace maker No Ocular Disease Other Social History Tobacco Use Smoking status: Former Types: Cigarettes Quit date: 2021 Years since quittin.5 Smokeless tobacco: Never Tobacco comments: Pt smoked 3 cigarettes daily x 2 months, quit 2021 Vaping Use Vaping Use: current everyday user Substances: Nicotine, Flavoring Devices: Pre-filled or refillable cartridge Substance Use Topics Alcohol use: Not Currently Comment: occasional Drug use: No ALLERGIES: ALLERGIES No Known Allergies CURRENT OUTPATIENT MEDICATIONS: methylphenidate (RITALIN) 20 mg tablet^Take 1 tablet by mouth as needed for up to 30 days. Take at approx. 3-4 pm.^Disp: 30 tablet^Rfl: 0 amphetamine-dextroamphetamine XR (ADDERALL XR) 30 mg biphasic capsule^Take 1 capsule by mouth every morning for 30 days.^Disp: 30 capsule^Rfl: 0 topiramate (TOPAMAX) 25 mg tablet^Take 1 tablet by mouth once daily.^Disp: 30 tablet^Rfl: 11 omeprazole (PRILOSEC) 20 mg capsule^Take 1 capsule by mouth once daily.^Disp: 30 capsule^Rfl: 5 PNV No.40-Iron Fum-FA Cmb No.1 (PNV-SELECT) 27-1 mg tab^Take 1 tablet by mouth once daily.^Disp: 30 tablet^Rfl: 12 medroxyPROGESTERone (PROVERA) 10 mg tablet^Take 1 tablet by mouth once daily. for the - of each month^Disp: 10 tablet^Rfl: 11 CPAP/BIPAP/OTHER^Type .CPAPSettings into a note to see current settings/supplies/DME information.^Disp: 1 Each^Rfl: 0 [START ON 02/08/2023] methylphenidate (RITALIN) 20 mg tablet^Take 1 tablet by mouth as needed for up to 30 days. Take at approx. 3-4 pm. Do not start before February 08, 2023.^Disp: 30 tablet^Rfl: 0 [START ON 03/10/2023] methylphenidate (RITALIN) 20 mg tablet^Take 1 tablet by mouth as needed for up to 30 days. Take at approx. 3-4 pm. Do not start before March 10, 2023.^Disp: 30 tablet^Rfl: 0 [START ON 02/08/2023] amphetamine-dextroamphetamine XR (ADDERALL XR) 30 mg biphasic capsule^Take 1 capsule by mouth every morning for 30 days. Do not start before February 08, 2023.^Disp: 30 capsule^Rfl: 0 [START ON 03/10/2023] amphetamine-dextroamphetamine XR (ADDERALL XR) 30 mg biphasic capsule^Take 1 capsule by mouth every morning for 30 days. Do not start before March 10, 2023.^Disp: 30 capsule^Rfl: 0 methylphenidate (RITALIN) 20 mg tablet^Take 1 tablet by mouth as needed for up to 30 days. Take at approx. 3-4 pm.^Disp: 30 tablet^Rfl: 0 amphetamine-dextroamphetamine XR (ADDERALL XR) 30 mg 24 hr capsule^Take 1 capsule by mouth every morning for 30 days. Do not start before January 08, 2023.^Disp: 30 capsule^Rfl: 0 amphetamine-dextroamphetamine XR (ADDERALL XR) 30 mg 24 hr capsule^Take 1 capsule by mouth every morning for 30 days. Do not start before December 09, 2022.^Disp: 30 capsule^Rfl: 0 methylphenidate (RITALIN) 20 mg tablet^Take 1 tablet by mouth as needed for up to 30 days. Take at approx. 3-4 pm. Do not start before December 09, 2022.^Disp: 30 tablet^Rfl: 0 ergocalciferol 50,000 unit capsule (VITAMIN D2, DRISDOL)^Take 1 capsule by mouth one time a week.^Disp: 8 capsule^Rfl: 0 REVIEW OF SYSTEMS: GENERAL: No fever, night sweats, weight loss or malaise. All other reviewed and negative other than HPI. PHYSICAL EXAMINATION: VITAL SIGNS: BP 119/76 Pulse 77 Temp (Src) 96.7 (Temporal) Wt 297 lb (134.7kg) SpO2 97% LMP 11/14/2022 GENERAL APPEARANCE: Well appearing, in no acute distress, alert and oriented x3, well-hydrated, well nourished. I spent a total of 30 minutes on the date of the service which included preparing to see the patient, [id number] patient care, completing clinical documentation, obtaining and/or reviewing separately obtained history, performing a medically appropriate examination, counseling and educating the patient/family/caregiver, ordering medications, tests, or procedures, independently interpreting results (not separately reported), and communicating results to the patient/family/caregiver. Electronically Signed: Gopal Yanez MD January 13, 2023 2:31 PM documented in this encounter [facility] 01-13-2023 Miscellaneous Notes Pending. documented in this encounter [facility] 01-13-2023 Note HNO ID: [id number] Author: Karlos Jett MD Service: ? Author Type: Physician Type: Progress Notes Filed: 01/13/2023 9:49 AM Note Text: S/p PAP titration ORDERED Autopap to [facility] 01-13-2023 History of Present illness Narrative S/p PAP titration ORDERED [facility] to [facility] documented in this encounter [facility] 01-11-2023 Miscellaneous Notes Patient notified. Verbalized understanding. Please let patient know she was positive for yeast. She is already prescribed Diflucan. Take as prescribed. documented in this encounter [facility] 01-10-2023 Note [facility] 01-10-2023 History of Present illness Narrative This note was created using [employer]. Subjective Katie Forde is a 22 year old female. HPI 22-year-old female presents for vaginal discharge, vaginal irritation. Patient states that she is concerned she has a yeast infection. She recently completed amoxicillin for an ear infection. She saw her dentist a few days ago and is having a root canal, so is on amoxicillin again. States that she has vaginal irritation, itching and discharge. Denies any dysuria or hematuria. No concern for STD. She states she was checked for STDs earlier this month. No new sexual partners. No concern for . No abdominal pain, pelvic pain. No other complaints. 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 MEDICATIONS fluconazole (DIFLUCAN) 150 mg tablet^Take 1 tablet by mouth one time only for 1 dose. Repeat in 3 days as needed.^Disp: 2 tablet^Rfl: 0 methylphenidate (RITALIN) 20 mg tablet^Take 1 tablet by mouth as needed for up to 30 days. Take at approx. 3-4 pm.^Disp: 30 tablet^Rfl: 0 amphetamine-dextroamphetamine XR (ADDERALL XR) 30 mg biphasic capsule^Take 1 capsule by mouth every morning for 30 days.^Disp: 30 capsule^Rfl: 0 [START ON 02/08/2023] methylphenidate (RITALIN) 20 mg tablet^Take 1 tablet by mouth as needed for up to 30 days. Take at approx. 3-4 pm. Do not start before February 08, 2023.^Disp: 30 tablet^Rfl: 0 [START ON 03/10/2023] methylphenidate (RITALIN) 20 mg tablet^Take 1 tablet by mouth as needed for up to 30 days. Take at approx. 3-4 pm. Do not start before March 10, 2023.^Disp: 30 tablet^Rfl: 0 [START ON 02/08/2023] amphetamine-dextroamphetamine XR (ADDERALL XR) 30 mg biphasic capsule^Take 1 capsule by mouth every morning for 30 days. Do not start before February 08, 2023.^Disp: 30 capsule^Rfl: 0 [START ON 03/10/2023] amphetamine-dextroamphetamine XR (ADDERALL XR) 30 mg biphasic capsule^Take 1 capsule by mouth every morning for 30 days. Do not start before March 10, 2023.^Disp: 30 capsule^Rfl: 0 methylphenidate (RITALIN) 20 mg tablet^Take 1 tablet by mouth as needed for up to 30 days. Take at approx. 3-4 pm.^Disp: 30 tablet^Rfl: 0 topiramate (TOPAMAX) 25 mg tablet^Take 1 tablet by mouth once daily.^Disp: 30 tablet^Rfl: 11 amphetamine-dextroamphetamine XR (ADDERALL XR) 30 mg 24 hr capsule^Take 1 capsule by mouth every morning for 30 days. Do not start before January 08, 2023.^Disp: 30 capsule^Rfl: 0 amphetamine-dextroamphetamine XR (ADDERALL XR) 30 mg 24 hr capsule^Take 1 capsule by mouth every morning for 30 days. Do not start before December 09, 2022.^Disp: 30 capsule^Rfl: 0 methylphenidate (RITALIN) 20 mg tablet^Take 1 tablet by mouth as needed for up to 30 days. Take at approx. 3-4 pm. Do not start before December 09, 2022.^Disp: 30 tablet^Rfl: 0 omeprazole (PRILOSEC) 20 mg capsule^Take 1 capsule by mouth once daily.^Disp: 30 capsule^Rfl: 5 ergocalciferol 50,000 unit capsule (VITAMIN D2, DRISDOL)^Take 1 capsule by mouth one time a week.^Disp: 8 capsule^Rfl: 0 PNV No.40-Iron Fum-FA Cmb No.1 (PNV-SELECT) 27-1 mg tab^Take 1 tablet by mouth once daily.^Disp: 30 tablet^Rfl: 12 medroxyPROGESTERone (PROVERA) 10 mg tablet^Take 1 tablet by mouth once daily. for the -10th of each month^Disp: 10 tablet^Rfl: 11 FAMILY HISTORY Problem Relation Age of Onset other (Marfan's) Mother None Father other (Marfan's) Brother other (mood issues) Brother Osteoporosis Maternal Grandmother other (Marfan's) Maternal Grandfather None Paternal Grandmother Heart Paternal Grandfather pace maker No Ocular Disease Other Social History Tobacco Use Smoking status: Former Types: Cigarettes Quit date: 2021 Years since quittin.5 Smokeless tobacco: Never Tobacco comments: Pt smoked 3 cigarettes daily x 2 months, quit 2021 Vaping Use Vaping Use: current everyday user Substances: Nicotine, Flavoring Devices: Pre-filled or refillable cartridge Substance Use Topics Alcohol use: Not Currently Comment: occasional Drug use: No Review of Systems Constitutional: Negative for chills and fever. HENT: Negative for congestion, ear pain and sore throat. Respiratory: Negative for cough and shortness of breath. Cardiovascular: Negative for chest pain. Gastrointestinal: Negative for diarrhea and vomiting. Genitourinary: Positive for vaginal discharge. Negative for vaginal bleeding and vaginal pain. Objective BP 92/64 Pulse 93 Temp 36.8 C (98.3 F) Resp 18 Wt 134 kg (295 lb 6.4 oz) LMP 11/14/2022 SpO2 96% BMI 37.93 kg/m Physical Exam Vitals and nursing note reviewed. Exam conducted with a engraver rubber present. Constitutional: General: She is not in acute distress. Appearance: Normal appearance. She is not toxic-appearing. Cardiovascular: Rate and Rhythm: Normal rate and regular rhythm. Pulmonary: Effort: Pulmonary effort is normal. Breath sounds: Normal breath sounds. Genitourinary: Vagina: Vaginal discharge and erythema present. Cervix: Discharge present. No erythema. Adnexa: Right: No tenderness. Left: No tenderness. Comments: Patient has white discharge in vaginal vault and from cervix. She does have some erythema of the vaginal canal with irritation. No CMT. No adnexal tenderness. Skin: General: Skin is warm and dry. Neurological: Mental Status: She is alert. Assessment and Plan ASSESSMENT/PLAN: 1. Vaginal discharge - ICD9: 623.5, ICD10: N89.8 -Suspect candidal vaginitis. Recently on antibiotics. -Rx for Diflucan sent to pharmacy. Denies concern for . -Advised to await swab results prior to taking the medication. - YEIMY/TRICHOMONAS NAAT - BACTERIAL VAGINOSIS NAAT - GONORRHEA/CHLAMYDIA NAAT Diagnosis and treatment plan were discussed and questions were answered to the patient's satisfaction. Pt acknowledged understanding of concepts and follow up plan. Specific signs and symptoms that would indicate the need for higher level of care were discussed in detail warranting prompt ER evaluation. ADITYA Swann documented in this encounter [facility] 01-09-2023 Miscellaneous Notes The following approved medication requests have been transmitted electronically. Requested Prescriptions Signed Prescriptions Disp Refills methylphenidate (RITALIN) 20 mg tablet 30 tablet 0 Sig: Take 1 tablet by mouth as needed for up to 30 days. Take at approx. 3-4 pm. Authorizing Provider: KATE SILVA methylphenidate (RITALIN) 20 mg tablet 30 tablet 0 Sig: Take 1 tablet by mouth as needed for up to 30 days. Take at approx. 3-4 pm. Do not start before February 08, 2023. Authorizing Provider: KATE SILVA methylphenidate (RITALIN) 20 mg tablet 30 tablet 0 Sig: Take 1 tablet by mouth as needed for up to 30 days. Take at approx. 3-4 pm. Do not start before March 10, 2023. Authorizing Provider: KATE SILVA MD Patient has been identified by name and date of : Yes Patient phones for refill(s): Requested Prescriptions Pending Prescriptions Disp Refills methylphenidate (RITALIN) 20 mg tablet 30 tablet 0 Sig: Take 1 tablet by mouth as needed for up to 30 days. Take at approx. 3-4 pm. Date of last office visit in primary care: 11/19/2022 Please advise. Thank you. Jeannette Arvizu LPN documented in this encounter [facility] 12-28-2022 Note HNO ID: [id number] Author: [facility] Trainee Service: ? Author Type: ? Type: Progress Notes Filed: 12/28/2022 2:23 AM Note Text: Sleep Study Check-In Documentation Date: December 28, 2022 Name: Katie Forde Patient was accompanied by Self. Location: [place] Latex allergy: No Tape allergy: No Current medications were reviewed with the patient:Yes Sleep aid taken by patient for the sleep study: Yes Name of sleep aid: Sonata Procedure was explained to the patient and all questions were answered. PAP treatment discussed and shown to patient: Yes If PAP used enter mask info: Mask NameAirFit P10, MakeResMed, MaskTypeNasal Pillow Mask SizeSmall Knowledge Program (KP): KP was not completed in [facility] by patient and accepted Study type: PAP titration Adverse Event: No (If yes create a new abstract) Comments: Patient was advised to follow up with their ordering provider regarding test results [facility] 12-28-2022 History of Present illness Narrative Sleep Study Check-In Documentation Date: December 28, 2022 Name: Katie Forde Patient was accompanied by Self. Location: [place] Latex allergy: No Tape allergy: No Current medications were reviewed with the patient:Yes Sleep aid taken by patient for the sleep study: Yes Name of sleep aid: Sonata Procedure was explained to the patient and all questions were answered. PAP treatment discussed and shown to patient: Yes If PAP used enter mask info: Mask NameAirFit P10, MakeResMed, MaskTypeNasal Pillow Mask SizeSmall Knowledge Program (KP): KP was not completed in epic by patient and accepted Study type: PAP titration Adverse Event: No (If yes create a new abstract) Comments: Patient was advised to follow up with their ordering provider regarding test results Vince Pastrana documented in this encounter [facility] 12-24-2022 Miscellaneous Notes Called and the below results reviewed with the patient. Giulia Vo RN Images from the original note were not included. Rebeca Gonzalez APRN.HEAD OF ENGLISH [facility] Cardiology Pool 2 hours ago (2:28 PM) Monitor looks good. No significant arrhythmia. Echocardiogram looks good. She has normal structure and function. Thank you, Rebeca Gonzalez APRN.HEAD OF ENGLISH Patient asking for Echo and Zio results. Giulia Vo RN documented in this encounter [facility] 12-24-2022 Note [facility] 12-24-2022 History of Present illness Narrative Subjective Sore Throat Associated symptoms include congestion, ear pain and headaches. Pertinent negatives include no coughing or shortness of breath. Katie Forde is a 21 year old female who presents with sore throat for the past 2-3 weeks. She states her neck is sore. She has not had a fever. She has had an associated runny nose and headache and bilateral ear pain. She has taken excedrin for her headache. Review of Systems Constitutional: Negative for chills and fever. HENT: Positive for congestion, ear pain and sore throat. Respiratory: Negative for cough and shortness of breath. Cardiovascular: Negative. Neurological: Positive for headaches. 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 MEDICATIONS methylphenidate (RITALIN) 20 mg tablet^Take 1 tablet by mouth as needed for up to 30 days. Take at approx. 3-4 pm.^Disp: 30 tablet^Rfl: 0 topiramate (TOPAMAX) 25 mg tablet^Take 1 tablet by mouth once daily.^Disp: 30 tablet^Rfl: 11 [START ON 01/08/2023] methylphenidate (RITALIN) 20 mg tablet^Take 1 tablet by mouth as needed for up to 30 days. Take at approx. 3-4 pm. Do not start before January 08, 2023.^Disp: 30 tablet^Rfl: 0 methylphenidate (RITALIN) 20 mg tablet^Take 1 tablet by mouth as needed for up to 30 days. Take at approx. 3-4 pm. Do not start before December 09, 2022.^Disp: 30 tablet^Rfl: 0 medroxyPROGESTERone (PROVERA) 10 mg tablet^Take 1 tablet by mouth once daily. for the - of each month^Disp: 10 tablet^Rfl: 11 amoxicillin (AMOXIL) 875 mg tablet^Take 1 tablet by mouth twice daily for 7 days.^Disp: 14 tablet^Rfl: 0 amphetamine-dextroamphetamine XR (ADDERALL XR) 30 mg biphasic capsule^Take 1 capsule by mouth every morning for 30 days.^Disp: 30 capsule^Rfl: 0 fluconazole (DIFLUCAN) 150 mg tablet^Take 1 tablet by mouth every 72 hours. Repeat in 3 days as needed.^Disp: 3 tablet^Rfl: 0 [START ON 01/08/2023] amphetamine-dextroamphetamine XR (ADDERALL XR) 30 mg 24 hr capsule^Take 1 capsule by mouth every morning for 30 days. Do not start before January 08, 2023.^Disp: 30 capsule^Rfl: 0 amphetamine-dextroamphetamine XR (ADDERALL XR) 30 mg 24 hr capsule^Take 1 capsule by mouth every morning for 30 days. Do not start before December 09, 2022.^Disp: 30 capsule^Rfl: 0 omeprazole (PRILOSEC) 20 mg capsule^Take 1 capsule by mouth once daily.^Disp: 30 capsule^Rfl: 5 ergocalciferol 50,000 unit capsule (VITAMIN D2, DRISDOL)^Take 1 capsule by mouth one time a week.^Disp: 8 capsule^Rfl: 0 PNV No.40-Iron Fum-FA Cmb No.1 (PNV-SELECT) 27-1 mg tab^Take 1 tablet by mouth once daily.^Disp: 30 tablet^Rfl: 12 FAMILY HISTORY Problem Relation Age of Onset other (Marfan's) Mother None Father other (Marfan's) Brother other (mood issues) Brother Osteoporosis Maternal Grandmother other (Marfan's) Maternal Grandfather None Paternal Grandmother Heart Paternal Grandfather pace maker No Ocular Disease Other Social History Tobacco Use Smoking status: Former Types: Cigarettes Quit date: 2021 Years since quittin.4 Smokeless tobacco: Never Tobacco comments: Pt smoked 3 cigarettes daily x 2 months, quit 2021 Vaping Use Vaping Use: current everyday user Substances: Nicotine, Flavoring Devices: Pre-filled or refillable cartridge Substance Use Topics Alcohol use: Not Currently Comment: occasional Drug use: No Objective Physical Exam Vitals and nursing note reviewed. Constitutional: Appearance: Normal appearance. HENT: Right Ear: Tympanic membrane, ear canal and external ear normal. Left Ear: Ear canal and external ear normal. Tympanic membrane is injected and erythematous. Nose: Nose normal. Mouth/Throat: Mouth: Mucous membranes are moist. Pharynx: Oropharynx is clear. Uvula midline. No oropharyngeal exudate or posterior oropharyngeal erythema. Cardiovascular: Rate and Rhythm: Normal rate and regular rhythm. Heart sounds: Normal heart sounds. Pulmonary: Effort: Pulmonary effort is normal. No respiratory distress. Breath sounds: Normal breath sounds. No wheezing or rales. Musculoskeletal: Cervical back: Neck supple. Lymphadenopathy: Cervical: No cervical adenopathy. Skin: General: Skin is warm and dry. Findings: No erythema or rash. Neurological: Mental Status: She is alert. ASSESSMENT/PLAN: 1. Sore throat - ICD9: 462, ICD10: J02.9 (primary diagnosis) - suspect viral - Alere Strep Test negative, no culture pending - Discussed supportive care treatment with fluids, rest and analgesia. - STREP A MOLECULAR (POC) 2. Other acute nonsuppurative otitis media of right ear, recurrence not specified - ICD9: 381.00, ICD10: H65.191 - Will begin treatment with as per antibiotic as written, see orders - Supportive care with plenty of fluids, rest, and analgesia prn. - AMOXICILLIN 875 MG TABLET - Follow-up with your PCP in 3-5 days if symptoms have not improved or sooner if symptoms worsen - Discussed red flags and need for immediate medical evaluation if any occur. - Discussed supportive care treatment with fluids, rest and analgesia. - Discussed expected course of illness Kera Joseph APRN.CNP documented in this encounter [facility] 12-24-2022 Instructions Kera Joseph APRN.CNP - 12/24/2022 2:53 PM EDT ASSESSMENT/PLAN: 1. Sore throat - ICD9: 462, ICD10: J02.9 (primary diagnosis) - suspect viral - Alere Strep Test negative, no culture pending - Discussed supportive care treatment with fluids, rest and analgesia. - STREP A MOLECULAR (POC) 2. Other acute nonsuppurative otitis media of right ear, recurrence not specified - ICD9: 381.00, ICD10: H65.191 - Will begin treatment with as per antibiotic as written, see orders - Supportive care with plenty of fluids, rest, and analgesia prn. - AMOXICILLIN 875 MG TABLET - Follow-up with your PCP in 3-5 days if symptoms have not improved or sooner if symptoms worsen - Discussed red flags and need for immediate medical evaluation if any occur. - Discussed supportive care treatment with fluids, rest and analgesia. - Discussed expected course of illness Kera Joseph APRN.HEAD [employer] ENGLISH [employer]ITIS MEDIA GENERAL INFORMATION: Otitis media is an infection of the middle ear. The middle ear sits behind the eardrum. This infection may be caused by a virus or bacteria and often follows a cold. Children often have repeat ear infections. Otitis media is not contagious. INSTRUCTIONS: 1. An antibiotic has been prescribed. It should be taken exactly as prescribed. Do not stop the medicine even if the symptoms go away. 2. Xvag-jee-hwgksow pain medication may be taken or other pain medication as prescribed by the doctor. 3. Nothing should be placed in the ear unless instructed by your doctor. 4. The patient may return to school/daycare or work when the temperature is normal (98.6 F or 37 C). 5. The patient should not swim while the ear is infected. CONTACT YOUR DOCTOR IF YOU OR YOUR CHILD: 1. Does not feel better within 36 hours. 2. Develops a temperature over 102E F (39E C). 3. Starts vomiting or has diarrhea. 4. Develops drainage from the affected ear. 5. Has any new problem that may be related to the medicine prescribed. RETURN TO THE ED IF: 1. You or your child has a severe headache or pain around the ear. 2. You or your child notice swelling around the ear. 3. You or your child has a seizure (convulsion), twitching of the facial muscles, or passes out. 4. You or your child is dizzy, has a stiff neck, or cannot walk or talk normally. 5. Your child becomes more irritable or listless (not interested in his or her surroundings, does not get soothed by you holding him or her). SORE THROAT INSTRUCTIONS SORE THROAT OVERVIEW - Sore throat is a common problem during childhood, and is usually the result of a bacterial or viral infection. Although sore throat usually resolves without complications, it sometimes requires treatment with an antibiotic. There are some less common causes of sore throat that are serious or even life-threatening. This topic will discuss the most common causes and treatments of sore throat in children, as well as the warning signs of more serious conditions. SORE THROAT CAUSES - The most likely cause of a child's sore throat depends upon the child's age, the season, and the geographic area. While viruses are the most common cause of sore throat, bacteria are another common cause. Bacteria and viruses are spread from one person to another through hand contact. Hands get contaminated when the sick individual touches their nose or mouth and then touches another person directly (lviz-zb-cqnw contact) or indirectly (rznb-xv-ypsgub, such as doorknob, telephone, toys). It is difficult to determine the cause of sore throat based upon symptoms alone; an examination and laboratory test are recommended in most cases Viruses - There are many viruses that can cause pain and swelling of the throat. The most common include viruses that cause sore throat as part of an upper respiratory infection, such as the common cold. Other viruses that cause sore throat include influenza, adenovirus, and Rachael-Stephenson virus (the cause of mononucleosis). Symptoms - Symptoms that may occur with a viral infection can include a runny nose and congestion, irritation or redness of the eyes, cough, hoarseness, soreness in the roof of the mouth, a skin rash, or diarrhea. In addition, children with viral infections may have a fever and may feel miserable. A high fever does not necessarily mean that the child has a bacterial infection. Group A streptococcus - Group A streptococcus (GAS) is the name of the bacterium that causes strep throat. Although other bacteria can cause a sore throat, GAS is the most common bacterial cause; up to 30 percent of children with a sore throat will have GAS. Strep throat usually occurs during the winter and early spring, and is most common in school-age children and their younger siblings. Symptoms - Symptoms of strep throat in children older than 3 years often develop suddenly and include fever (temperature ?100.4 F or 38 C), headache, abdominal pain, nausea, and vomiting. Other symptoms can include swollen glands in the neck, white patches of pus in the back or sides of the throat, small red spots on the roof of the mouth, and swelling of the uvula. A cough and cold are not commonly seen in children with strep throat. Strep throat is uncommon in children younger than age 2 to 3 years. However, GAS infection can occur in younger children, and may cause a runny nose and congestion that is prolonged, low-grade fever (?101 F or 38.3 C), and tender glands in the neck. Infants younger than 1 year may be fussy and have a decreased appetite and low-grade fever. SORE THROAT TREATMENT - The treatment of sore throat depends upon the cause; strep throat is treated with an antibiotic while viral pharyngitis is treated with rest, pain relievers, and other measures to reduce symptoms. Strep throat - Strep throat is usually treated with an antibiotic, such as penicillin, or an antibiotic similar to penicillin (eg, amoxicillin). Children who are allergic to penicillin will be given an alternate antibiotic. The antibiotic is usually given in pill or liquid form two or three times per day. A one-time injection is also available, and may be recommended if a child is unwilling to take an oral medication. After completing 24 hours of antibiotics, the child is no longer contagious and may return to school. Symptoms usually improve within 1 to 2 days. However, it is important for the child to finish the entire course of treatment (usually 10 days). If a child does not begin to improve or worsens within 3 days, the child should be reevaluated. Throat pain can be treated with a non-prescription pain medication, if needed. (See 'Pain medications' below.) In addition, parents should monitor their child for dehydration, which can develop if the child is not willing to drink or eat due to a sore throat. (See 'Monitor for dehydration' below.) Viral throat pain - Sore throat caused by viral infections usually last 4 to 5 days. During this time, treatments to reduce pain may be helpful but will not help to eliminate the virus. Antibiotics do not improve throat pain caused by a virus and are not recommended. A child with a viral infection is usually allowed to return to school when there has been no fever for 24 hours and the child feels well enough to pay attention. Pain medications - Throat pain can be treated with a mild pain reliever such as acetaminophen (Tylenol ) or a non-steroidal anti-inflammatory agent such as ibuprofen (Motrin ). These medications should be dosed according to weight, not age. Aspirin is not recommended for children <18 years due to the risk of a potentially serious condition known as Daniel syndrome. Monitor for dehydration - Some children with a sore throat are reluctant to drink or eat due to pain. Drinking less fluid can lead to dehydration. To reduce the risk of dehydration, parents can offer warm or cold liquids. (See 'Other interventions' below.) Signs and symptoms of mild dehydration include a slightly dry mouth, increased thirst, and decreased urine output (one wet diaper or void in six hours). Signs of moderate or severe dehydration include decreased urine output (less than one wet diaper or void in six hours), lack of tears when crying, dry mouth, and sunken eyes. A child who is moderately or severely dehydrated should be evaluated by a healthcare provider as soon as possible to determine if treatment is needed. Oral rinses- Salt-water gargles are an old stand-by for relief of throat pain. It is not clear if this treatment is effective, but it is unlikely to be harmful. Most recipes suggest 1/4 to 1/2 teaspoon of salt per cup (8 ounces) of warm water. The water should be gargled and then spit out (not swallowed). Children younger than six to eight years are not able to gargle properly. An oral rinse composed of equal parts of diphenhydramine (Benadryl liquid) and Maalox (magnesium hydroxide, aluminum hydroxide, and simethicone) may be helpful for pain caused by a sore mouth or ulcers in the mouth. Children older than six to eight years may swish and spit (not swallow) the mixture. Sprays - Sprays containing topical anesthetics are available to treat sore throat. However, such sprays are no more effective than sucking on hard candy. In addition, a common anesthetic ingredient, benzocaine, can cause allergic reactions. We do not recommend throat sprays for children. Lozenges - A variety of medicated throat lozenges are available to relieve dryness or pain. However, it is not clear that lozenges work any better than hard candy. We do not recommend throat lozenges for children, especially children younger than 3 to 4 years, who can choke. Sucking on hard candy may provide some relief for children older than 3 to 4 years, who are not at risk for choking. Other interventions - Other interventions include sipping warm beverages (eg, honey or lemon tea, chicken soup), cold beverages, or eating cold or frozen desserts (eg, ice cream, popsicles). These treatments are safe for children. Honey should not be given to children younger than 12 months due to the potential risk of botulism poisoning. Alternative therapies - Health food stores, vitamin outlets, and Internet Web sites offer alternative treatments for relief of sore throat pain. We do not recommend these treatments due to the risks of contamination with pesticides/herbicides, inaccurate labeling and dosing information, and a lack of studies showing that these treatments are safe and effective. SORE THROAT PREVENTION - Hand washing is an essential and highly effective way to prevent the spread of infection. Hands should be wet with water and plain soap, and rubbed together for 15 to 30 seconds. Special attention should be paid to the fingernails, between the fingers, and the wrists. Hands should be rinsed thoroughly, and dried with a single use towel. Alcohol-based hand rubs are a good alternative for disinfecting hands if a sink is not available. Hand rubs should be spread over the entire surface of hands, fingers, and wrists until dry, and may be used several times. These rubs can be used repeatedly without skin irritation or loss of effectiveness. Hand rubs are available as a liquid or wipe in small, portable sizes that are easy to carry in a pocket or handbag. When a sink is available, visibly soiled hands should be washed with soap and water. Hands should be washed after coughing, blowing the nose or sneezing. While it is not always possible to limit contact with a person who is sick, avoiding touching the eyes, nose, or mouth after direct contact can help to prevent the spread of infection. In addition, tissues should be used to cover the mouth when sneezing or coughing. These used tissues should be disposed of promptly. Sneezing/coughing into the sleeve of one's clothing (at the inner elbow) is another means of containing sprays of saliva and secretions and has the advantage of not contaminating the hands. WHEN TO SEEK HELP - Parents of a child with throat pain and one or more of the following should contact their healthcare provider immediately: Difficulty swallowing or breathing Excessive drooling in an or young child Temperature ?101 F or 38.3 C Swelling of the neck Child is unable or unwilling to drink or eat Voice sounds muffled Child has a stiff neck or difficulty opening the mouth WHERE TO GET MORE INFORMATION - Your child's healthcare provider is the best source of information for questions and concerns related to your child's medical problem. This article will be updated as needed every four months on our web site ([email or web address]). Information below was obtained from Up to date Last literature review version 19.2: October 2010 This topic last updated: February 14, 2010 documented in this encounter [facility] 11-19-2022 Note [facility] 11-12-2022 Note [facility] 11-08-2022 Note [facility] 11-08-2022 Instructions Karlos Jett MD - 11/08/2022 4:25 PM EDT ESTEBAN: - You have mild sleep apnea. - Sleep apnea is a serious sleep disorder that occurs when a person's breathing is interrupted during sleep. People with untreated sleep apnea stop breathing repeatedly during their sleep, sometimes hundreds of times during the night. - The most common type of sleep apnea is obstructive sleep apnea. - If left untreated, obstructive sleep apnea can result in a number of health problems including hypertension, stroke, arrhythmias, cardiomyopathy (enlargement of the muscle tissue of the heart), heart failure, diabetes, obesity, and heart attacks. - Treatment options for obstructive sleep apnea may include positive airway pressure (PAP) therapy, oral appliance, hypoglossal nerve stimulator, nose/throat surgery, weight loss, side sleeping, or avoidance of medications or substances that can relax the airway muscles (alcohol, benzodiazepines, and opioids). eXciteOSA is a prescribed device worn in your mouth for 20 minutes a day that has been clinically proven to treat mild obstructive sleep apnea. More at: [email or web address] - PAP titration to evaluate for effectiveness of PAP therapy for obstructive sleep apnea. - Discussed with the patient the possible diagnosis, causes, and conditions associated with obstructive sleep apnea. - Avoid driving when drowsy. Recommend that if you are dozing off while driving, that you do not drive until your sleepiness is appropriately treated. -Encouraged healthy lifestyle with adequate sleep ( 7-9 hours per night), diet and exercise. - Results are usually available within 7-10 business days. If you do not hear from us within 1-2 weeks after testing, please contact us directly. - Follow up visit in 2wks post study - virtually. Please schedule this appointment now to ensure your preferred time and location. - Avoid driving if drowsy. We recommend that if you are dozing off while driving, that you do not drive until your sleepiness is appropriately treated. - We encourage a healthy lifestyle with adequate sleep (7-9 hours per night), diet and exercise. Any appointments can be scheduled through the central scheduling system for the [facility] at [phone]. [employer] [facility] now offers direct scheduling for patients to schedule appointments. Virtual visits are also available. If not covered by your insurance, there is a 35% discount. Please contact your insurance to determine coverage. Call the office at [phone], option #5 for questions. May use Message My Doc through My Chart for questions. May use My Chart Refills for refill requests. [facility] website: [email or web address] documented in this encounter [facility] 11-08-2022 History of Present illness Narrative Images from the original note were not included. [facility] Follow up/ Established patient visit Date of last visit : 09/06/2022 I have communicated my name and active licensure. The patient's identity and physical location were verified at the time of this visit. Either the patient or their legal financial foundations representative has been informed of the risks and benefits of -- and alternatives to -- treatment through a remote evaluation and consents to proceed with the evaluation remotely. Interval history : Here for follow up for ESTEBAN Katie Forde is a 21 year old female with past medical history of migraine, Marfan syndrome, ADHD, depression, anxiety, obesity (BMI 40), hypovitaminosis D presenting with sleep concerns of suspected sleep disordered breathing. Sleep disordered breathing symptoms: Snoring, fatigue, daytime napping, may have AM SOTO. Given the patient's history of Marfan syndrome, there is an increased likelihood of airway flexibility perhaps predisposing the patient to sleep disordered breathing. Furthermore, given the risk of cardiac complications with Marfan syndrome and the increased risk of CVA with moderate or severe ESTEBAN, would be advised to diagnose and treat any sleep apnea. CC: EDS with naps Total sleep time (TST) was 195 minutes resulting in a sleep efficiency of 54.2% REM-Time REM AHI NREM-Time NREM AHI Total-Time Total RDI Total AHI Supine 24.5 m 9.8 126.0 m 6.7 150.5 m 12.0 7.2 Off-Supine 0.0 m -- 45.0 m 1.3 45.0 m 2.7 1.3 Total 24.5 m 9.8 171.0 m 5.3 195.5 m 9.8 5.8 PVCs noted SLEEP HYGIENE QUESTIONS: Bedtime: 00- 1AM. She does not have a hard time falling asleep. Wake time: 710 AM, with an alarm. - wakes unrefreshed After falling asleep: she does not usually wake up during the night. On weekends, she maintains the same sleep schedule. Average total sleep time (in a 24 hour period): 7 hours. She does take naps. Frequency: 7/7, Duration: 2-3h. Naps are sometimes refreshing. PATIENT-ENTERED QUESTIONNAIRE SLEEP SCORES Sleep Questions 11/08/2022 Reason for visit: Sleep apnea, Excessive daytime sleepiness Average hours slept in 24 hours: 7 Accidents or near accidents due to drowsy drivin [place] Sleepiness Scale 09/04/2022 11/08/2022 Score 9 (No daytime sleepiness) 13 (present daytime sleepiness) PROMIS CAT Sleep Disturbance 09/04/2022 11/08/2022 PROMIS Sleep Disturbance T-Score 49 (within normal limits) 54 (within normal limits) PROMIS Sleep Disturbance Percentile 54 % 34 % Restless Leg Syndrome 11/08/2022 Score 0 PHQ-9 11/08/2022 Score 0 PROMIS Global Health - (T-Scores - the mean of general population = 50. Five points is a clinically meaningful difference.) 11/08/2022 Physical T-Score 50.8 Mental T-Score 59 PMH, PSH, SH: none SLEEP RELATED ROS Review of Systems ALLERGIES No Known Allergies CURRENT MEDICATIONS: predniSONE (DELTASONE) 10 mg tablet^Take 4 tabs daily for 3 days, then 2 tabs daily for 3 days, then 1 tab daily for 3 days with food.^Disp: 21 tablet^Rfl: 0 amoxicillin-clavulanic acid (AUGMENTIN) 875-125 mg per tablet^Take 1 tablet by mouth twice daily for 5 days.^Disp: 10 tablet^Rfl: 0 topiramate (TOPAMAX) 25 mg tablet^Take 1 tablet by mouth once daily.^Disp: 30 tablet^Rfl: 11 [START ON 11/09/2022] methylphenidate (RITALIN) 20 mg tablet^Take 1 tablet by mouth as needed for up to 30 days. Take at approx. 3-4 pm. Do not start before November 09, 2022.^Disp: 30 tablet^Rfl: 0 [START ON 11/09/2022] amphetamine-dextroamphetamine XR (ADDERALL XR) 30 mg 24 hr capsule^Take 1 capsule by mouth every morning for 30 days. Do not start before November 09, 2022.^Disp: 30 capsule^Rfl: 0 [START ON 01/08/2023] amphetamine-dextroamphetamine XR (ADDERALL XR) 30 mg 24 hr capsule^Take 1 capsule by mouth every morning for 30 days. Do not start before January 08, 2023.^Disp: 30 capsule^Rfl: 0 [START ON 12/09/2022] amphetamine-dextroamphetamine XR (ADDERALL XR) 30 mg 24 hr capsule^Take 1 capsule by mouth every morning for 30 days. Do not start before December 09, 2022.^Disp: 30 capsule^Rfl: 0 [START ON 01/08/2023] methylphenidate (RITALIN) 20 mg tablet^Take 1 tablet by mouth as needed for up to 30 days. Take at approx. 3-4 pm. Do not start before January 08, 2023.^Disp: 30 tablet^Rfl: 0 [START ON 12/09/2022] methylphenidate (RITALIN) 20 mg tablet^Take 1 tablet by mouth as needed for up to 30 days. Take at approx. 3-4 pm. Do not start before December 09, 2022.^Disp: 30 tablet^Rfl: 0 omeprazole (PRILOSEC) 20 mg capsule^Take 1 capsule by mouth once daily.^Disp: 30 capsule^Rfl: 5 ergocalciferol 50,000 unit capsule (VITAMIN D2, DRISDOL)^Take 1 capsule by mouth one time a week.^Disp: 8 capsule^Rfl: 0 PNV No.40-Iron Fum-FA Cmb No.1 (PNV-SELECT) 27-1 mg tab^Take 1 tablet by mouth once daily.^Disp: 30 tablet^Rfl: 12 medroxyPROGESTERone (PROVERA) 10 mg tablet^Take 1 tablet by mouth once daily. for the 1st-10th of each month^Disp: 10 tablet^Rfl: 11 Prior Hypersomnia/Narcolepsy Medications (20 years) Some values may be hidden. Unless noted otherwise, only the newest values recorded on each date are displayed. Also, latest columns from 11/09/2012 - 11/09/2022 are shown. Hypersomnia/Narcolepsy Medications Amphetamine-Dextroamphetamine (ADDERALL XR) 25 mg ORAL 24 hr capsule Dose: 1 capsule EVERY MORNING Starting date: 06/05/2011 Ending date: 06/27/2011 (Discontinued) amphetamine-dextroamphetamine (ADDERALL XR) 30 mg ORAL 24 hr capsule Dose: 30 mg EVERY MORNING Starting date: 06/27/2011 Ending date: 07/29/2011 (Discontinued) amphetamine-dextroamphetamine (ADDERALL XR) 30 mg ORAL 24 hr capsule Dose: 30 mg EVERY MORNING Starting date: 07/29/2011 Ending date: 08/23/2011 (Discontinued) amphetamine-dextroamphetamine (ADDERALL XR) 30 mg ORAL 24 hr capsule Dose: 30 mg EVERY MORNING Starting date: 08/23/2011 Ending date: 09/17/2011 (Discontinued) amphetamine-dextroamphetamine (ADDERALL XR) 30 mg ORAL 24 hr capsule Dose: 30 mg EVERY MORNING Starting date: 09/17/2011 Ending date: 10/17/2011 (Discontinued) amphetamine-dextroamphetamine (ADDERALL XR) 30 mg ORAL 24 hr capsule Dose: 30 mg EVERY MORNING Starting date: 10/17/2011 Ending date: 11/16/2011 (Discontinued) amphetamine-dextroamphetamine (ADDERALL XR) 30 mg 24 hr capsule Dose: 30 mg EVERY MORNING Starting date: 11/16/2011 Ending date: 12/16/2011 (Discontinued) amphetamine-dextroamphetamine (ADDERALL XR) 30 mg 24 hr capsule Dose: 30 mg EVERY MORNING Starting date: 12/16/2011 Ending date: 01/13/2012 (Discontinued) amphetamine-dextroamphetamine (ADDERALL XR) 30 mg 24 hr capsule Dose: 30 mg EVERY MORNING Starting date: 01/13/2012 Ending date: 02/10/2012 (Discontinued) amphetamine-dextroamphetamine (ADDERALL XR) 30 mg 24 hr capsule Dose: 30 mg EVERY MORNING Starting date: 02/10/2012 Ending date: 03/11/2012 (Discontinued) amphetamine-dextroamphetamine (ADDERALL XR) 30 mg 24 hr capsule Dose: 30 mg EVERY MORNING Starting date: 03/11/2012 Ending date: 04/08/2012 (Discontinued) amphetamine-dextroamphetamine (ADDERALL XR) 30 mg 24 hr capsule Dose: 30 mg EVERY MORNING Starting date: 04/08/2012 Ending date: 05/07/2012 (Discontinued) amphetamine-dextroamphetamine (ADDERALL XR) 30 mg 24 hr capsule Dose: 30 mg EVERY MORNING Starting date: 05/07/2012 Ending date: 06/04/2012 (Discontinued) amphetamine-dextroamphetamine (ADDERALL XR) 30 mg 24 hr capsule Dose: 30 mg EVERY MORNING Starting date: 06/04/2012 Ending date: 07/03/2012 (Discontinued) amphetamine-dextroamphetamine (ADDERALL XR) 30 mg 24 hr capsule Dose: 30 mg EVERY MORNING Starting date: 07/03/2012 Ending date: 07/31/2012 (Discontinued) amphetamine-dextroamphetamine (ADDERALL XR) 30 mg 24 hr capsule Dose: 30 mg EVERY MORNING Starting date: 07/31/2012 Ending date: 08/28/2012 (Discontinued) amphetamine-dextroamphetamine (ADDERALL XR) 30 mg 24 hr capsule Dose: 30 mg EVERY MORNING Starting date: 08/28/2012 Ending date: 09/26/2012 (Discontinued) amphetamine-dextroamphetamine (ADDERALL XR) 30 mg 24 hr capsule Dose: 30 mg EVERY MORNING Starting date: 09/26/2012 Ending date: 10/24/2012 (Discontinued) amphetamine-dextroamphetamine (ADDERALL XR) 30 mg 24 hr capsule Dose: 30 mg EVERY MORNING Starting date: 10/24/2012 Ending date: 11/21/2012 (Discontinued) amphetamine-dextroamphetamine (ADDERALL XR) 30 mg 24 hr capsule Dose: 30 mg EVERY MORNING Starting date: 11/21/2012 Ending date: 12/22/2012 (Discontinued) dextroamphetamine-amphetamine (ADDERALL XR) 30 mg 24 hr capsule Dose: 30 mg EVERY MORNING Starting date: 12/22/2012 Ending date: 01/19/2013 (Discontinued) dextroamphetamine-amphetamine (ADDERALL XR) 30 mg 24 hr capsule Dose: 30 mg EVERY MORNING Starting date: 01/19/2013 Ending date: 02/18/2013 (Discontinued) dextroamphetamine-amphetamine (ADDERALL XR) 30 mg 24 hr capsule Dose: 30 mg EVERY MORNING Starting date: 02/18/2013 Ending date: 03/22/2013 (Discontinued) dextroamphetamine-amphetamine (ADDERALL XR) 30 mg 24 hr capsule Dose: 30 mg EVERY MORNING Starting date: 03/22/2013 Ending date: 04/19/2013 (Discontinued) dextroamphetamine-amphetamine (ADDERALL XR) 30 mg 24 hr capsule Dose: 30 mg EVERY MORNING Starting date: 04/19/2013 Ending date: 05/18/2013 (Discontinued) dextroamphetamine-amphetamine (ADDERALL XR) 30 mg 24 hr capsule Dose: 30 mg EVERY MORNING Starting date: 05/18/2013 Ending date: 06/15/2013 (Discontinued) dextroamphetamine-amphetamine (ADDERALL XR) 30 mg 24 hr capsule Dose: 30 mg EVERY MORNING Starting date: 06/15/2013 Ending date: 07/14/2013 (Discontinued) dextroamphetamine-amphetamine (ADDERALL XR) 30 mg 24 hr capsule Dose: 30 mg EVERY MORNING Starting date: 07/14/2013 Ending date: 08/12/2013 (Discontinued) dextroamphetamine-amphetamine (ADDERALL XR) 30 mg 24 hr capsule Dose: 30 mg EVERY MORNING Starting date: 08/12/2013 Ending date: 09/07/2013 (Discontinued) dextroamphetamine-amphetamine (ADDERALL XR) 30 mg 24 hr capsule Dose: 30 mg EVERY MORNING Starting date: 09/07/2013 Ending date: 10/06/2013 (Discontinued) dextroamphetamine-amphetamine (ADDERALL XR) 30 mg 24 hr capsule Dose: 30 mg EVERY MORNING Starting date: 10/06/2013 Ending date: 11/03/2013 (Discontinued) dextroamphetamine-amphetamine (ADDERALL XR) 30 mg 24 hr capsule Dose: 30 mg EVERY MORNING Starting date: 11/03/2013 Ending date: 12/02/2013 (Discontinued) dextroamphetamine-amphetamine (ADDERALL XR) 30 mg 24 hr capsule Dose: 30 mg EVERY MORNING Starting date: 12/02/2013 Ending date: 12/29/2013 (Discontinued) dextroamphetamine-amphetamine (ADDERALL XR) 30 mg 24 hr capsule Dose: 30 mg EVERY MORNING Starting date: 12/29/2013 Ending date: 01/28/2014 (Discontinued) dextroamphetamine-amphetamine (ADDERALL XR) 30 mg 24 hr capsule Dose: 30 mg EVERY MORNING Starting date: 01/28/2014 Ending date: 03/01/2014 (Discontinued) dextroamphetamine-amphetamine (ADDERALL XR) 30 mg 24 hr capsule Dose: 30 mg EVERY MORNING Starting date: 03/01/2014 Ending date: 03/28/2014 (Discontinued) dextroamphetamine-amphetamine (ADDERALL XR) 30 mg 24 hr capsule Dose: 30 mg EVERY MORNING Starting date: 03/28/2014 Ending date: 04/22/2014 (Discontinued) dextroamphetamine-amphetamine (ADDERALL XR) 30 mg 24 hr capsule Dose: 30 mg EVERY MORNING Starting date: 04/22/2014 Ending date: 06/09/2014 (Discontinued) dextroamphetamine-amphetamine (ADDERALL XR) 30 mg 24 hr capsule Dose: 30 mg EVERY MORNING Starting date: 04/22/2014 Ending date: 04/22/2014 (Discontinued) dextroamphetamine-amphetamine (ADDERALL XR) 30 mg 24 hr capsule Dose: 30 mg EVERY MORNING Starting date: 04/22/2014 Ending date: 04/22/2014 (Discontinued) dextroamphetamine-amphetamine (ADDERALL XR) 30 mg 24 hr capsule Dose: 30 mg EVERY MORNING Starting date: 06/22/2014 Ending date: 06/09/2014 (Discontinued) dextroamphetamine-amphetamine (ADDERALL XR) 30 mg 24 hr capsule Dose: 30 mg EVERY MORNING Starting date: 05/23/2014 Ending date: 07/21/2014 (Discontinued) dextroamphetamine-amphetamine (ADDERALL XR) 30 mg 24 hr capsule Dose: 30 mg EVERY MORNING Starting date: 07/21/2014 Ending date: 10/18/2014 (Discontinued) dextroamphetamine-amphetamine (ADDERALL XR) 30 mg 24 hr capsule Dose: 30 mg EVERY MORNING Starting date: 08/22/2014 Ending date: 10/18/2014 (Discontinued) dextroamphetamine-amphetamine (ADDERALL XR) 30 mg 24 hr capsule Dose: 30 mg EVERY MORNING Starting date: 09/19/2014 Ending date: 10/18/2014 (Discontinued) dextroamphetamine-amphetamine (ADDERALL XR) 30 mg 24 hr capsule Dose: 30 mg EVERY MORNING Starting date: 10/18/2014 Ending date: 11/14/2014 (Discontinued) dextroamphetamine-amphetamine (ADDERALL XR) 30 mg 24 hr capsule Dose: 30 mg EVERY MORNING Starting date: 11/14/2014 Ending date: 02/16/2015 (Discontinued) dextroamphetamine-amphetamine (ADDERALL XR) 30 mg 24 hr capsule Dose: 30 mg EVERY MORNING Starting date: 12/15/2014 Ending date: 02/16/2015 (Discontinued) dextroamphetamine-amphetamine (ADDERALL XR) 30 mg 24 hr capsule Dose: 30 mg EVERY MORNING Starting date: 01/14/2015 Ending date: 02/16/2015 (Discontinued) dextroamphetamine-amphetamine (ADDERALL XR) 30 mg 24 hr capsule Dose: 30 mg EVERY MORNING Starting date: 02/17/2015 Ending date: 05/12/2015 (Discontinued) dextroamphetamine-amphetamine (ADDERALL XR) 30 mg 24 hr capsule Dose: 30 mg EVERY MORNING Starting date: 04/18/2015 Ending date: 05/12/2015 (Discontinued) dextroamphetamine-amphetamine (ADDERALL XR) 30 mg 24 hr capsule Dose: 30 mg EVERY MORNING Starting date: 03/19/2015 Ending date: 05/16/2015 (Discontinued) dextroamphetamine-amphetamine (ADDERALL XR) 30 mg 24 hr capsule Dose: 30 mg EVERY MORNING Starting date: 05/16/2015 Ending date: 09/13/2015 (Discontinued) dextroamphetamine-amphetamine (ADDERALL XR) 30 mg 24 hr capsule Dose: 30 mg EVERY MORNING Starting date: 09/13/2015 Ending date: 10/11/2015 (Discontinued) dextroamphetamine-amphetamine (ADDERALL XR) 30 mg 24 hr capsule Dose: 30 mg EVERY MORNING Starting date: 10/11/2015 Ending date: 03/12/2016 (Discontinued) dextroamphetamine-amphetamine (ADDERALL XR) 30 mg 24 hr capsule Dose: 30 mg EVERY MORNING Starting date: 11/10/2015 Ending date: 03/12/2016 (Discontinued) dextroamphetamine-amphetamine (ADDERALL XR) 30 mg 24 hr capsule Dose: 30 mg EVERY MORNING Starting date: 12/11/2015 Ending date: 01/09/2016 (Discontinued) dextroamphetamine-amphetamine (ADDERALL XR) 30 mg 24 hr capsule Dose: 30 mg EVERY MORNING Starting date: 01/09/2016 Ending date: 02/09/2016 (Discontinued) dextroamphetamine-amphetamine (ADDERALL XR) 30 mg 24 hr capsule Dose: 30 mg EVERY MORNING Starting date: 02/09/2016 Ending date: 03/12/2016 (Discontinued) dextroamphetamine-amphetamine (ADDERALL XR) 30 mg 24 hr capsule Dose: 30 mg EVERY MORNING Starting date: 05/09/2016 Ending date: 06/07/2016 (Discontinued) dextroamphetamine-amphetamine (ADDERALL XR) 30 mg 24 hr capsule Dose: 30 mg EVERY MORNING Starting date: 04/10/2016 Ending date: 06/07/2016 (Discontinued) dextroamphetamine-amphetamine (ADDERALL XR) 30 mg 24 hr capsule Dose: 30 mg EVERY MORNING Starting date: 03/12/2016 Ending date: 06/07/2016 (Discontinued) dextroamphetamine-amphetamine (ADDERALL XR) 30 mg 24 hr capsule Dose: 30 mg EVERY MORNING Starting date: 06/07/2016 Ending date: 07/09/2016 (Discontinued) dextroamphetamine-amphetamine (ADDERALL XR) 30 mg 24 hr capsule Dose: 30 mg EVERY MORNING Starting date: 08/08/2016 Ending date: 09/09/2016 (Discontinued) dextroamphetamine-amphetamine (ADDERALL XR) 30 mg 24 hr capsule Dose: 30 mg EVERY MORNING Starting date: 09/07/2016 Ending date: 09/09/2016 (Discontinued) dextroamphetamine-amphetamine (ADDERALL XR) 30 mg 24 hr capsule Dose: 30 mg EVERY MORNING Starting date: 07/09/2016 Ending date: 09/09/2016 (Discontinued) dextroamphetamine-amphetamine (ADDERALL XR) 30 mg 24 hr capsule Dose: 30 mg EVERY MORNING Starting date: 11/09/2016 Ending date: 12/09/2016 (Discontinued) dextroamphetamine-amphetamine (ADDERALL XR) 30 mg 24 hr capsule Dose: 30 mg EVERY MORNING Starting date: 10/10/2016 Ending date: 12/09/2016 (Discontinued) dextroamphetamine-amphetamine (ADDERALL XR) 30 mg 24 hr capsule Dose: 30 mg EVERY MORNING Starting date: 09/09/2016 Ending date: 12/09/2016 (Discontinued) dextroamphetamine-amphetamine (ADDERALL XR) 30 mg 24 hr capsule Dose: 30 mg EVERY MORNING Starting date: 12/09/2016 Ending date: 01/07/2017 (Discontinued) dextroamphetamine-amphetamine (ADDERALL XR) 30 mg 24 hr capsule Dose: 30 mg EVERY MORNING Starting date: 01/07/2017 Ending date: 02/03/2017 (Discontinued) dextroamphetamine-amphetamine (ADDERALL XR) 30 mg 24 hr capsule Dose: 30 mg EVERY MORNING Starting date: 02/03/2017 Ending date: 03/14/2017 (Discontinued) dextroamphetamine-amphetamine (ADDERALL XR) 30 mg 24 hr capsule Dose: 30 mg EVERY MORNING Starting date: 05/14/2017 Ending date: 06/11/2017 (Discontinued) dextroamphetamine-amphetamine (ADDERALL XR) 30 mg 24 hr capsule Dose: 30 mg EVERY MORNING Starting date: 04/13/2017 Ending date: 06/11/2017 (Discontinued) dextroamphetamine-amphetamine (ADDERALL XR) 30 mg 24 hr capsule Dose: 30 mg EVERY MORNING Starting date: 03/14/2017 Ending date: 06/11/2017 (Discontinued) dextroamphetamine-amphetamine (ADDERALL XR) 30 mg 24 hr capsule Dose: 30 mg EVERY MORNING Starting date: 06/11/2017 Ending date: 09/08/2017 (Discontinued) dextroamphetamine-amphetamine (ADDERALL XR) 30 mg 24 hr capsule Dose: 30 mg EVERY MORNING Starting date: 07/11/2017 Ending date: 09/08/2017 (Discontinued) dextroamphetamine-amphetamine (ADDERALL XR) 30 mg 24 hr capsule Dose: 30 mg EVERY MORNING Starting date: 08/10/2017 Ending date: 09/08/2017 (Discontinued) dextroamphetamine-amphetamine (ADDERALL XR) 30 mg 24 hr capsule Dose: 30 mg EVERY MORNING Starting date: 09/08/2017 Ending date: 09/30/2017 (Discontinued) dextroamphetamine-amphetamine (ADDERALL XR) 30 mg 24 hr capsule Dose: 30 mg EVERY MORNING Starting date: 09/30/2017 Ending date: 11/07/2017 (Discontinued) dextroamphetamine-amphetamine (ADDERALL XR) 30 mg 24 hr capsule Dose: 30 mg EVERY MORNING Starting date: 11/07/2017 Ending date: 12/08/2017 (Discontinued) dextroamphetamine-amphetamine (ADDERALL XR) 30 mg 24 hr capsule Dose: 30 mg EVERY MORNING Starting date: 12/08/2017 Ending date: 03/04/2018 (Discontinued) dextroamphetamine-amphetamine (ADDERALL XR) 30 mg 24 hr capsule Dose: 30 mg EVERY MORNING Starting date: 01/07/2018 Ending date: 03/04/2018 (Discontinued) dextroamphetamine-amphetamine (ADDERALL XR) 30 mg 24 hr capsule Dose: 30 mg EVERY MORNING Starting date: 02/06/2018 Ending date: 03/04/2018 (Discontinued) dextroamphetamine-amphetamine (ADDERALL XR) 30 mg 24 hr capsule Dose: 30 mg EVERY MORNING Starting date: 05/03/2018 Ending date: 05/28/2018 (Discontinued) dextroamphetamine-amphetamine (ADDERALL XR) 30 mg 24 hr capsule Dose: 30 mg EVERY MORNING Starting date: 04/03/2018 Ending date: 03/25/2018 (Discontinued) dextroamphetamine-amphetamine (ADDERALL XR) 30 mg 24 hr capsule Dose: 30 mg EVERY MORNING Starting date: 03/04/2018 Ending date: 03/25/2018 (Discontinued) dextroamphetamine-amphetamine (ADDERALL XR) 30 mg 24 hr capsule Dose: 30 mg EVERY MORNING Starting date: 05/28/2018 Ending date: 06/18/2018 (Discontinued) dextroamphetamine-amphetamine (ADDERALL XR) 30 mg 24 hr capsule Dose: 30 mg EVERY MORNING Starting date: 06/18/2018 Ending date: 07/22/2018 (Discontinued) dextroamphetamine-amphetamine (ADDERALL XR) 30 mg 24 hr capsule Dose: 30 mg EVERY MORNING Starting date: 07/23/2018 Ending date: 08/20/2018 (Discontinued) dextroamphetamine-amphetamine (ADDERALL XR) 30 mg 24 hr capsule Dose: 30 mg EVERY MORNING Starting date: 08/20/2018 Ending date: 09/08/2018 (Discontinued) dextroamphetamine-amphetamine (ADDERALL XR) 30 mg 24 hr capsule Dose: 30 mg EVERY MORNING Starting date: 09/08/2018 Ending date: 10/19/2018 (Discontinued) dextroamphetamine-amphetamine (ADDERALL XR) 30 mg 24 hr capsule Dose: 30 mg EVERY MORNING Starting date: 10/21/2018 Ending date: 11/17/2018 (Discontinued) amphetamine-dextroamphetamine XR (ADDERALL XR) 30 mg 24 hr capsule Dose: 30 mg EVERY MORNING Starting date: 11/17/2018 Ending date: 12/18/2018 (Discontinued) amphetamine-dextroamphetamine XR (ADDERALL XR) 30 mg 24 hr capsule Dose: 30 mg EVERY MORNING Starting date: 12/18/2018 Ending date: 01/19/2019 (Discontinued) amphetamine-dextroamphetamine XR (ADDERALL XR) 30 mg 24 hr capsule Dose: 30 mg EVERY MORNING Starting date: 01/19/2019 Ending date: 02/17/2019 (Discontinued) amphetamine-dextroamphetamine XR (ADDERALL XR) 30 mg 24 hr capsule Dose: 30 mg EVERY MORNING Starting date: 02/18/2019 Ending date: 03/18/2019 (Discontinued) amphetamine-dextroamphetamine XR (ADDERALL XR) 30 mg 24 hr capsule Dose: 30 mg EVERY MORNING Starting date: 03/18/2019 Ending date: 04/13/2019 (Discontinued) amphetamine-dextroamphetamine XR (ADDERALL XR) 30 mg 24 hr capsule Dose: 30 mg EVERY MORNING Starting date: 04/13/2019 Ending date: 07/15/2019 (Discontinued) amphetamine-dextroamphetamine XR (ADDERALL XR) 30 mg 24 hr capsule Dose: 30 mg EVERY MORNING Starting date: 05/17/2019 Ending date: 06/16/2019 (Discontinued) amphetamine-dextroamphetamine XR (ADDERALL XR) 30 mg 24 hr capsule Dose: 30 mg EVERY MORNING Starting date: 06/17/2019 Ending date: 07/15/2019 (Discontinued) amphetamine-dextroamphetamine XR (ADDERALL XR) 30 mg 24 hr capsule Dose: 30 mg EVERY MORNING Starting date: 07/15/2019 Ending date: 08/20/2019 (Discontinued) amphetamine-dextroamphetamine XR (ADDERALL XR) 30 mg 24 hr capsule Dose: 30 mg EVERY MORNING Starting date: 08/20/2019 Ending date: 09/17/2019 (Discontinued) amphetamine-dextroamphetamine XR (ADDERALL XR) 30 mg 24 hr capsule Dose: 30 mg EVERY MORNING Starting date: 09/17/2019 Ending date: 10/19/2019 (Discontinued) amphetamine-dextroamphetamine XR (ADDERALL XR) 30 mg 24 hr capsule Dose: 30 mg EVERY MORNING Starting date: 10/19/2019 Ending date: 11/17/2019 (Discontinued) amphetamine-dextroamphetamine XR (ADDERALL XR) 30 mg 24 hr capsule Dose: 30 mg EVERY MORNING Starting date: 11/18/2019 Ending date: 12/22/2019 (Discontinued) amphetamine-dextroamphetamine XR (ADDERALL XR) 30 mg 24 hr capsule Dose: 30 mg EVERY MORNING Starting date: 12/23/2019 Ending date: 01/28/2020 (Discontinued) amphetamine-dextroamphetamine XR (ADDERALL XR) 30 mg 24 hr capsule Dose: 30 mg EVERY MORNING Starting date: 01/28/2020 Ending date: 03/01/2020 (Discontinued) amphetamine-dextroamphetamine XR (ADDERALL XR) 30 mg 24 hr capsule Dose: 30 mg EVERY MORNING Starting date: 03/02/2020 Ending date: 04/07/2020 (Discontinued) amphetamine-dextroamphetamine XR (ADDERALL XR) 30 mg 24 hr capsule Dose: 30 mg EVERY MORNING Starting date: 04/07/2020 Ending date: 05/12/2020 (Discontinued) amphetamine-dextroamphetamine XR (ADDERALL XR) 30 mg 24 hr capsule Dose: 30 mg EVERY MORNING Starting date: 05/12/2020 Ending date: 06/16/2020 (Discontinued) amphetamine-dextroamphetamine XR (ADDERALL XR) 30 mg 24 hr capsule Dose: 30 mg EVERY MORNING Starting date: 06/16/2020 Ending date: 07/21/2020 (Discontinued) amphetamine-dextroamphetamine XR (ADDERALL XR) 30 mg 24 hr capsule Dose: 30 mg EVERY MORNING Starting date: 07/21/2020 Ending date: 08/29/2020 (Discontinued) amphetamine-dextroamphetamine XR (ADDERALL XR) 30 mg 24 hr capsule Dose: 30 mg EVERY MORNING Starting date: 08/29/2020 Ending date: 10/10/2020 (Discontinued) amphetamine-dextroamphetamine XR (ADDERALL XR) 30 mg 24 hr capsule Dose: 30 mg EVERY MORNING Starting date: 10/10/2020 Ending date: 11/18/2020 (Discontinued) amphetamine-dextroamphetamine XR (ADDERALL XR) 30 mg 24 hr capsule Dose: 30 mg EVERY MORNING Starting date: 11/20/2020 Ending date: 2020 (Discontinued) amphetamine-dextroamphetamine XR (ADDERALL XR) 30 mg 24 hr capsule Dose: 30 mg EVERY MORNING Starting date: 01/02/2021 Ending date: 02/10/2021 (Discontinued) amphetamine-dextroamphetamine XR (ADDERALL XR) 30 mg 24 hr capsule Dose: 30 mg EVERY MORNING Starting date: 02/13/2021 Ending date: 03/17/2021 (Discontinued) amphetamine-dextroamphetamine XR (ADDERALL XR) 30 mg 24 hr capsule Dose: 30 mg EVERY MORNING Starting date: 03/17/2021 Ending date: 05/03/2021 (Discontinued) amphetamine-dextroamphetamine XR (ADDERALL XR) 30 mg 24 hr capsule Dose: 30 mg EVERY MORNING Starting date: 05/03/2021 Ending date: 06/13/2021 (Discontinued) amphetamine-dextroamphetamine XR (ADDERALL XR) 30 mg 24 hr capsule Dose: 30 mg EVERY MORNING Starting date: 06/14/2021 Ending date: 07/12/2021 (Discontinued) amphetamine-dextroamphetamine XR (ADDERALL XR) 30 mg 24 hr capsule Dose: 30 mg EVERY MORNING Starting date: 07/12/2021 Ending date: 08/14/2021 (Discontinued) amphetamine-dextroamphetamine XR (ADDERALL XR) 30 mg 24 hr capsule Dose: 30 mg EVERY MORNING Starting date: 08/14/2021 Ending date: 09/11/2021 (Discontinued) amphetamine-dextroamphetamine XR (ADDERALL XR) 30 mg 24 hr capsule Dose: 30 mg EVERY MORNING Starting date: 09/11/2021 Ending date: 10/09/2021 (Discontinued) amphetamine-dextroamphetamine XR (ADDERALL XR) 30 mg 24 hr capsule Dose: 30 mg EVERY MORNING Starting date: 10/09/2021 Ending date: 11/06/2021 (Discontinued) amphetamine-dextroamphetamine XR (ADDERALL XR) 30 mg 24 hr capsule Dose: 30 mg EVERY MORNING Starting date: 11/07/2021 Ending date: 12/07/2021 (Discontinued) amphetamine-dextroamphetamine XR (ADDERALL XR) 30 mg 24 hr capsule Dose: 30 mg EVERY MORNING Starting date: 12/07/2021 Ending date: 01/04/2022 (Discontinued) amphetamine-dextroamphetamine XR (ADDERALL XR) 30 mg 24 hr capsule Dose: 30 mg EVERY MORNING Starting date: 01/04/2022 Ending date: 01/30/2022 (Discontinued) amphetamine-dextroamphetamine XR (ADDERALL XR) 30 mg 24 hr capsule Dose: 30 mg EVERY MORNING Starting date: 01/30/2022 Ending date: 03/05/2022 (Discontinued) amphetamine-dextroamphetamine XR (ADDERALL XR) 30 mg 24 hr capsule Dose: 30 mg EVERY MORNING Starting date: 03/05/2022 Ending date: 04/04/2022 (Discontinued) amphetamine-dextroamphetamine XR (ADDERALL XR) 30 mg 24 hr capsule Dose: 30 mg EVERY MORNING Starting date: 04/04/2022 Ending date: 05/09/2022 (Discontinued) amphetamine-dextroamphetamine XR (ADDERALL XR) 30 mg 24 hr capsule Dose: 30 mg EVERY MORNING Starting date: 05/09/2022 Ending date: 06/06/2022 (Discontinued) amphetamine-dextroamphetamine XR (ADDERALL XR) 30 mg 24 hr capsule Dose: 30 mg EVERY MORNING Starting date: 06/06/2022 Ending date: 06/07/2022 (Discontinued) amphetamine-dextroamphetamine XR (ADDERALL XR) 30 mg 24 hr capsule Dose: 30 mg EVERY MORNING Starting date: 06/07/2022 Ending date: 07/03/2022 (Discontinued) amphetamine-dextroamphetamine XR (ADDERALL XR) 30 mg 24 hr capsule Dose: 30 mg EVERY MORNING Starting date: 07/04/2022 Ending date: 07/09/2022 (Discontinued) amphetamine-dextroamphetamine XR (ADDERALL XR) 30 mg 24 hr capsule Dose: 30 mg EVERY MORNING Starting date: 07/09/2022 Ending date: 08/05/2022 (Discontinued) amphetamine-dextroamphetamine XR (ADDERALL XR) 30 mg 24 hr capsule Dose: 30 mg EVERY MORNING Starting date: 08/06/2022 Ending date: 08/14/2022 (Discontinued) amphetamine-dextroamphetamine XR (ADDERALL XR) 30 mg 24 hr capsule Dose: 30 mg EVERY MORNING Starting date: 08/14/2022 Ending date: 09/09/2022 (Discontinued) amphetamine-dextroamphetamine XR (ADDERALL XR) 30 mg 24 hr capsule Dose: 30 mg EVERY MORNING Starting date: 09/10/2022 Ending date: 10/09/2022 (Discontinued) amphetamine-dextroamphetamine XR (ADDERALL XR) 30 mg 24 hr capsule Dose: 30 mg EVERY MORNING Starting date: 10/10/2022 Ending date: 10/28/2022 (Discontinued) amphetamine-dextroamphetamine XR (ADDERALL XR) 30 mg 24 hr capsule Dose: 30 mg EVERY MORNING Starting date: 11/09/2022 Ending date: 12/09/2022 amphetamine-dextroamphetamine XR (ADDERALL XR) 30 mg 24 hr capsule Dose: 30 mg EVERY MORNING Starting date: 01/08/2023 Ending date: 02/07/2023 amphetamine-dextroamphetamine XR (ADDERALL XR) 30 mg 24 hr capsule Dose: 30 mg EVERY MORNING Starting date: 12/09/2022 Ending date: 01/08/2023 amphetamine-dextroamphetamine XR (ADDERALL XR) 10 mg 24 hr capsule Dose: 10 mg EVERY MORNING Starting date: 09/13/2015 Ending date: 10/11/2015 (Discontinued) amphetamine-dextroamphetamine XR (ADDERALL XR) 10 mg 24 hr capsule Dose: 10 mg EVERY MORNING Starting date: 10/11/2015 Ending date: 03/12/2016 (Discontinued) amphetamine-dextroamphetamine XR (ADDERALL XR) 10 mg 24 hr capsule Dose: 10 mg EVERY MORNING Starting date: 11/10/2015 Ending date: 12/05/2015 (Discontinued) amphetamine-dextroamphetamine XR (ADDERALL XR) 10 mg 24 hr capsule Dose: 10 mg EVERY MORNING Starting date: 12/11/2015 Ending date: 01/09/2016 (Discontinued) amphetamine-dextroamphetamine XR (ADDERALL XR) 10 mg 24 hr capsule Dose: 10 mg EVERY MORNING Starting date: 01/09/2016 Ending date: 03/12/2016 (Discontinued) amphetamine-dextroamphetamine XR (ADDERALL XR) 10 mg 24 hr capsule Dose: 10 mg EVERY MORNING Starting date: 02/09/2016 Ending date: 03/12/2016 (Discontinued) amphetamine-dextroamphetamine XR (ADDERALL XR) 10 mg 24 hr capsule Dose: 10 mg EVERY MORNING Starting date: 03/12/2016 Ending date: 06/06/2016 (Discontinued) amphetamine-dextroamphetamine XR (ADDERALL XR) 10 mg 24 hr capsule Dose: 10 mg EVERY MORNING Starting date: 04/10/2016 Ending date: 06/07/2016 (Discontinued) amphetamine-dextroamphetamine XR (ADDERALL XR) 10 mg 24 hr capsule Dose: 10 mg EVERY MORNING Starting date: 05/09/2016 Ending date: 06/07/2016 (Discontinued) amphetamine-dextroamphetamine XR (ADDERALL XR) 10 mg 24 hr capsule Dose: 10 mg EVERY MORNING Starting date: 06/07/2016 Ending date: 07/09/2016 (Discontinued) amphetamine-dextroamphetamine XR (ADDERALL XR) 10 mg 24 hr capsule Dose: 10 mg EVERY MORNING Starting date: 08/08/2016 Ending date: 09/09/2016 (Discontinued) amphetamine-dextroamphetamine XR (ADDERALL XR) 10 mg 24 hr capsule Dose: 10 mg EVERY MORNING Starting date: 09/07/2016 Ending date: 09/09/2016 (Discontinued) amphetamine-dextroamphetamine XR (ADDERALL XR) 10 mg 24 hr capsule Dose: 10 mg EVERY MORNING Starting date: 07/09/2016 Ending date: 09/09/2016 (Discontinued) amphetamine-dextroamphetamine XR (ADDERALL XR) 10 mg 24 hr capsule Dose: 10 mg EVERY MORNING Starting date: 11/09/2016 Ending date: 12/09/2016 (Discontinued) amphetamine-dextroamphetamine XR (ADDERALL XR) 10 mg 24 hr capsule Dose: 10 mg EVERY MORNING Starting date: 10/10/2016 Ending date: 12/09/2016 (Discontinued) amphetamine-dextroamphetamine XR (ADDERALL XR) 10 mg 24 hr capsule Dose: 10 mg EVERY MORNING Starting date: 09/09/2016 Ending date: 12/09/2016 (Discontinued) amphetamine-dextroamphetamine XR (ADDERALL XR) 10 mg 24 hr capsule Dose: 10 mg EVERY MORNING Starting date: 12/09/2016 Ending date: 01/07/2017 (Discontinued) amphetamine-dextroamphetamine XR (ADDERALL XR) 10 mg 24 hr capsule Dose: 10 mg EVERY MORNING Starting date: 01/07/2017 Ending date: 02/03/2017 (Discontinued) amphetamine-dextroamphetamine XR (ADDERALL XR) 10 mg 24 hr capsule Dose: 10 mg EVERY MORNING Starting date: 02/03/2017 Ending date: 03/14/2017 (Discontinued) amphetamine-dextroamphetamine XR (ADDERALL XR) 10 mg 24 hr capsule Dose: 10 mg EVERY MORNING Starting date: 05/14/2017 Ending date: 06/11/2017 (Discontinued) amphetamine-dextroamphetamine XR (ADDERALL XR) 10 mg 24 hr capsule Dose: 10 mg EVERY MORNING Starting date: 04/13/2017 Ending date: 06/11/2017 (Discontinued) amphetamine-dextroamphetamine XR (ADDERALL XR) 10 mg 24 hr capsule Dose: 10 mg EVERY MORNING Starting date: 03/14/2017 Ending date: 06/11/2017 (Discontinued) amphetamine-dextroamphetamine XR (ADDERALL XR) 10 mg 24 hr capsule Dose: 10 mg EVERY MORNING Starting date: 06/11/2017 Ending date: 09/08/2017 (Discontinued) amphetamine-dextroamphetamine XR (ADDERALL XR) 10 mg 24 hr capsule Dose: 10 mg EVERY MORNING Starting date: 07/11/2017 Ending date: 09/08/2017 (Discontinued) amphetamine-dextroamphetamine XR (ADDERALL XR) 10 mg 24 hr capsule Dose: 10 mg EVERY MORNING Starting date: 08/10/2017 Ending date: 09/08/2017 (Discontinued) amphetamine-dextroamphetamine XR (ADDERALL XR) 10 mg 24 hr capsule Dose: 10 mg EVERY MORNING Starting date: 09/08/2017 Ending date: 09/30/2017 (Discontinued) amphetamine-dextroamphetamine XR (ADDERALL XR) 10 mg 24 hr capsule Dose: 10 mg EVERY MORNING Starting date: 09/30/2017 Ending date: 11/07/2017 (Discontinued) amphetamine-dextroamphetamine XR (ADDERALL XR) 10 mg 24 hr capsule Dose: 10 mg EVERY MORNING Starting date: 11/07/2017 Ending date: 12/08/2017 (Discontinued) amphetamine-dextroamphetamine XR (ADDERALL XR) 10 mg 24 hr capsule Dose: 10 mg EVERY MORNING Starting date: 12/08/2017 Ending date: 03/04/2018 (Discontinued) amphetamine-dextroamphetamine XR (ADDERALL XR) 10 mg 24 hr capsule Dose: 10 mg EVERY MORNING Starting date: 01/07/2018 Ending date: 03/04/2018 (Discontinued) amphetamine-dextroamphetamine XR (ADDERALL XR) 10 mg 24 hr capsule Dose: 10 mg EVERY MORNING Starting date: 02/06/2018 Ending date: 03/04/2018 (Discontinued) amphetamine-dextroamphetamine XR (ADDERALL XR) 10 mg 24 hr capsule Dose: 10 mg EVERY MORNING Starting date: 05/03/2018 Ending date: 05/28/2018 (Discontinued) amphetamine-dextroamphetamine XR (ADDERALL XR) 10 mg 24 hr capsule Dose: 10 mg EVERY MORNING Starting date: 04/03/2018 Ending date: 03/25/2018 (Discontinued) amphetamine-dextroamphetamine XR (ADDERALL XR) 10 mg 24 hr capsule Dose: 10 mg EVERY MORNING Starting date: 03/04/2018 Ending date: 03/25/2018 (Discontinued) amphetamine-dextroamphetamine XR (ADDERALL XR) 10 mg 24 hr capsule Dose: 10 mg EVERY MORNING Starting date: 05/28/2018 Ending date: 06/18/2018 (Discontinued) amphetamine-dextroamphetamine XR (ADDERALL XR) 10 mg 24 hr capsule Dose: 10 mg EVERY MORNING Starting date: 06/18/2018 Ending date: 07/22/2018 (Discontinued) amphetamine-dextroamphetamine XR (ADDERALL XR) 10 mg 24 hr capsule Dose: 10 mg EVERY MORNING Starting date: 07/23/2018 Ending date: 08/20/2018 (Discontinued) amphetamine-dextroamphetamine XR (ADDERALL XR) 10 mg 24 hr capsule Dose: 10 mg EVERY MORNING Starting date: 08/20/2018 Ending date: 09/08/2018 (Discontinued) amphetamine-dextroamphetamine XR (ADDERALL XR) 10 mg 24 hr capsule Dose: 10 mg EVERY MORNING Starting date: 09/08/2018 Ending date: 10/19/2018 (Discontinued) amphetamine-dextroamphetamine XR (ADDERALL XR) 10 mg 24 hr capsule Dose: 10 mg EVERY MORNING Starting date: 10/21/2018 Ending date: 11/17/2018 (Discontinued) amphetamine-dextroamphetamine XR (ADDERALL XR) 10 mg 24 hr capsule Dose: 10 mg EVERY MORNING Starting date: 11/17/2018 Ending date: 12/18/2018 (Discontinued) amphetamine-dextroamphetamine XR (ADDERALL XR) 10 mg 24 hr capsule Dose: 10 mg EVERY MORNING Starting date: 12/18/2018 Ending date: 01/19/2019 (Discontinued) amphetamine-dextroamphetamine XR (ADDERALL XR) 10 mg 24 hr capsule Dose: 10 mg EVERY MORNING Starting date: 01/19/2019 Ending date: 02/17/2019 (Discontinued) amphetamine-dextroamphetamine XR (ADDERALL XR) 10 mg 24 hr capsule Dose: 10 mg EVERY MORNING Starting date: 02/18/2019 Ending date: 03/18/2019 (Discontinued) amphetamine-dextroamphetamine XR (ADDERALL XR) 10 mg 24 hr capsule Dose: 10 mg EVERY MORNING Starting date: 03/18/2019 Ending date: 04/13/2019 (Discontinued) amphetamine-dextroamphetamine XR (ADDERALL XR) 10 mg 24 hr capsule Dose: 10 mg EVERY MORNING Starting date: 04/13/2019 Ending date: 06/01/2019 (Discontinued) amphetamine-dextroamphetamine XR (ADDERALL XR) 10 mg 24 hr capsule Dose: 10 mg EVERY MORNING Starting date: 05/17/2019 Ending date: 06/16/2019 (Discontinued) amphetamine-dextroamphetamine XR (ADDERALL XR) 10 mg 24 hr capsule Dose: 10 mg EVERY MORNING Starting date: 06/17/2019 Ending date: 07/15/2019 (Discontinued) amphetamine-dextroamphetamine XR (ADDERALL XR) 10 mg 24 hr capsule Dose: 10 mg EVERY MORNING Starting date: 07/15/2019 Ending date: 08/20/2019 (Discontinued) amphetamine-dextroamphetamine XR (ADDERALL XR) 10 mg 24 hr capsule Dose: 10 mg EVERY MORNING Starting date: 08/20/2019 Ending date: 09/17/2019 (Discontinued) amphetamine-dextroamphetamine XR (ADDERALL XR) 10 mg 24 hr capsule Dose: 10 mg EVERY MORNING Starting date: 09/17/2019 Ending date: 10/19/2019 (Discontinued) amphetamine-dextroamphetamine XR (ADDERALL XR) 10 mg 24 hr capsule Dose: 10 mg EVERY MORNING Starting date: 10/19/2019 Ending date: 11/17/2019 (Discontinued) amphetamine-dextroamphetamine XR (ADDERALL XR) 10 mg 24 hr capsule Dose: 10 mg EVERY MORNING Starting date: 11/18/2019 Ending date: 12/22/2019 (Discontinued) amphetamine-dextroamphetamine XR (ADDERALL XR) 10 mg 24 hr capsule Dose: 10 mg EVERY MORNING Starting date: 12/23/2019 Ending date: 01/28/2020 (Discontinued) amphetamine-dextroamphetamine XR (ADDERALL XR) 10 mg 24 hr capsule Dose: 10 mg EVERY MORNING Starting date: 01/28/2020 Ending date: 03/01/2020 (Discontinued) amphetamine-dextroamphetamine XR (ADDERALL XR) 10 mg 24 hr capsule Dose: 10 mg EVERY MORNING Starting date: 03/02/2020 Ending date: 04/07/2020 (Discontinued) amphetamine-dextroamphetamine XR (ADDERALL XR) 10 mg 24 hr capsule Dose: 10 mg EVERY MORNING Starting date: 04/07/2020 Ending date: 05/12/2020 (Discontinued) amphetamine-dextroamphetamine XR (ADDERALL XR) 10 mg 24 hr capsule Dose: 10 mg EVERY MORNING Starting date: 05/12/2020 Ending date: 06/16/2020 (Discontinued) amphetamine-dextroamphetamine XR (ADDERALL XR) 10 mg 24 hr capsule Dose: 10 mg EVERY MORNING Starting date: 06/16/2020 Ending date: 07/21/2020 (Discontinued) amphetamine-dextroamphetamine XR (ADDERALL XR) 10 mg 24 hr capsule Dose: 10 mg EVERY MORNING Starting date: 07/21/2020 Ending date: 08/29/2020 (Discontinued) amphetamine-dextroamphetamine XR (ADDERALL XR) 10 mg 24 hr capsule Dose: 10 mg EVERY MORNING Starting date: 08/29/2020 Ending date: 10/10/2020 (Discontinued) amphetamine-dextroamphetamine XR (ADDERALL XR) 10 mg 24 hr capsule Dose: 10 mg EVERY MORNING Starting date: 10/10/2020 Ending date: 11/18/2020 (Discontinued) amphetamine-dextroamphetamine XR (ADDERALL XR) 10 mg 24 hr capsule Dose: 10 mg EVERY MORNING Starting date: 11/20/2020 Ending date: 2020 (Discontinued) amphetamine-dextroamphetamine XR (ADDERALL XR) 10 mg 24 hr capsule Dose: 10 mg EVERY MORNING Starting date: 01/02/2021 Ending date: 02/10/2021 (Discontinued) amphetamine-dextroamphetamine XR (ADDERALL XR) 10 mg 24 hr capsule Dose: 10 mg EVERY MORNING Starting date: 02/13/2021 Ending date: 03/17/2021 (Discontinued) amphetamine-dextroamphetamine XR (ADDERALL XR) 10 mg 24 hr capsule Dose: 10 mg EVERY MORNING Starting date: 03/17/2021 Ending date: 05/03/2021 (Discontinued) amphetamine-dextroamphetamine XR (ADDERALL XR) 10 mg 24 hr capsule Dose: 10 mg EVERY MORNING Starting date: 05/03/2021 Ending date: 06/13/2021 (Discontinued) amphetamine-dextroamphetamine XR (ADDERALL XR) 10 mg 24 hr capsule Dose: 10 mg EVERY MORNING Starting date: 06/14/2021 Ending date: 07/12/2021 (Discontinued) amphetamine-dextroamphetamine XR (ADDERALL XR) 10 mg 24 hr capsule Dose: 10 mg EVERY MORNING Starting date: 07/12/2021 Ending date: 08/14/2021 (Discontinued) amphetamine-dextroamphetamine XR (ADDERALL XR) 10 mg 24 hr capsule Dose: 10 mg EVERY MORNING Starting date: 08/14/2021 Ending date: 09/11/2021 (Discontinued) amphetamine-dextroamphetamine XR (ADDERALL XR) 10 mg 24 hr capsule Dose: 10 mg EVERY MORNING Starting date: 09/11/2021 Ending date: 10/09/2021 (Discontinued) amphetamine-dextroamphetamine XR (ADDERALL XR) 10 mg 24 hr capsule Dose: 10 mg EVERY MORNING Starting date: 10/09/2021 Ending date: 11/06/2021 (Discontinued) amphetamine-dextroamphetamine XR (ADDERALL XR) 10 mg 24 hr capsule Dose: 10 mg EVERY MORNING Starting date: 11/07/2021 Ending date: 12/07/2021 (Discontinued) amphetamine-dextroamphetamine XR (ADDERALL XR) 10 mg 24 hr capsule Dose: 10 mg EVERY MORNING Starting date: 12/07/2021 Ending date: 01/04/2022 (Discontinued) amphetamine-dextroamphetamine XR (ADDERALL XR) 10 mg 24 hr capsule Dose: 10 mg EVERY MORNING Starting date: 01/04/2022 Ending date: 01/30/2022 (Discontinued) amphetamine-dextroamphetamine XR (ADDERALL XR) 10 mg 24 hr capsule Dose: 10 mg EVERY MORNING Starting date: 01/30/2022 Ending date: 03/05/2022 (Discontinued) amphetamine-dextroamphetamine XR (ADDERALL XR) 10 mg 24 hr capsule Dose: 10 mg EVERY MORNING Starting date: 03/05/2022 Ending date: 03/12/2022 (Discontinued) amphetamine-dextroamphetamine XR (ADDERALL XR) 20 mg ORAL 24 hr capsule Dose: 20 mg EVERY MORNING Starting date: 05/28/2011 Ending date: 06/27/2011 (Discontinued) amphetamine-dextroamphetamine XR (ADDERALL XR) 20 mg 24 hr capsule Dose: 40 mg EVERY MORNING Starting date: 06/14/2015 Ending date: 07/11/2015 (Discontinued) amphetamine-dextroamphetamine XR (ADDERALL XR) 20 mg 24 hr capsule Dose: 40 mg EVERY MORNING Starting date: 07/11/2015 Ending date: 09/13/2015 (Discontinued) amphetamine-dextroamphetamine XR (ADDERALL XR) 20 mg 24 hr capsule Dose: 40 mg DAILY Starting date: 09/09/2015 Ending date: 09/13/2015 (Discontinued) amphetamine-dextroamphetamine XR (ADDERALL XR) 20 mg 24 hr capsule Dose: 40 mg DAILY Starting date: 08/11/2015 Ending date: 09/13/2015 (Discontinued) amphetamine-dextroamphetamine XR (ADDERALL XR) 5 mg ORAL 24 hr capsule Dose: 5 mg EVERY MORNING Starting date: 06/05/2011 Ending date: 06/27/2011 (Discontinued) amphetamine-dextroamphetamine XR (ADDERALL XR) 5 mg 24 hr capsule Dose: 5 mg EVERY MORNING Starting date: 10/24/2014 Ending date: 02/16/2015 (Discontinued) amphetamine-dextroamphetamine XR (ADDERALL XR) 5 mg 24 hr capsule Dose: 5 mg EVERY MORNING Starting date: 11/14/2014 Ending date: 02/16/2015 (Discontinued) amphetamine-dextroamphetamine XR (ADDERALL XR) 5 mg 24 hr capsule Dose: 5 mg EVERY MORNING Starting date: 12/15/2014 Ending date: 02/16/2015 (Discontinued) amphetamine-dextroamphetamine XR (ADDERALL XR) 5 mg 24 hr capsule Dose: 5 mg EVERY MORNING Starting date: 01/14/2015 Ending date: 05/12/2015 (Discontinued) amphetamine-dextroamphetamine XR (ADDERALL XR) 5 mg 24 hr capsule Dose: 5 mg EVERY MORNING Starting date: 02/17/2015 Ending date: 05/12/2015 (Discontinued) amphetamine-dextroamphetamine XR (ADDERALL XR) 5 mg 24 hr capsule Dose: 5 mg EVERY MORNING Starting date: 04/18/2015 Ending date: 05/16/2015 (Discontinued) amphetamine-dextroamphetamine XR (ADDERALL XR) 5 mg 24 hr capsule Dose: 5 mg EVERY MORNING Starting date: 03/19/2015 Ending date: 05/10/2015 (Discontinued) amphetamine-dextroamphetamine XR (ADDERALL XR) 5 mg 24 hr capsule Dose: 5 mg EVERY MORNING Starting date: 05/16/2015 Ending date: 09/13/2015 (Discontinued) atomoxetine (STRATTERA) 40 mg capsule Dose: 40 mg DAILY (NOTE: This is a starter dose. Take 1 daily for the first 3 days.) Starting date: 07/31/2012 Ending date: 09/30/2012 (Discontinued) atomoxetine (STRATTERA) 40 mg capsule Dose: 80 mg DAILY Starting date: 08/04/2012 Ending date: 08/28/2012 (Discontinued) atomoxetine (STRATTERA) 40 mg capsule Dose: 80 mg DAILY Starting date: 08/28/2012 Ending date: 09/26/2012 (Discontinued) atomoxetine (STRATTERA) 40 mg capsule Dose: 80 mg DAILY Starting date: 09/26/2012 Ending date: 10/02/2012 (Discontinued) Atomoxetine (STRATTERA) 80 mg capsule Dose: 80 mg DAILY Starting date: 10/02/2012 Ending date: 11/19/2012 (Discontinued) CONCERTA 18 MG TAB Dose: Take one(1) tablet daily at 8 pm Starting date: 01/08/2006 Ending date: 03/05/2006 (Discontinued) CONCERTA 18 MG 24 HR TAB Dose: Take one(1) tablet daily. Starting date: 04/15/2006 Ending date: 05/19/2006 (Discontinued) CONCERTA 18 MG 24 HR TAB Dose: Take one(1) tablet daily. Starting date: 05/19/2006 Ending date: 06/17/2006 (Discontinued) CONCERTA 18 MG 24 HR TAB Dose: Take one(1) tablet daily. Starting date: 06/17/2006 Ending date: 07/21/2006 (Discontinued) CONCERTA 18 MG 24 HR TAB Dose: Take one(1) tablet daily. Starting date: 07/21/2006 Ending date: 08/19/2006 (Discontinued) CONCERTA 18 MG 24 HR TAB Dose: Take one(1) tablet daily. Starting date: 08/19/2006 Ending date: 09/19/2006 (Discontinued) CONCERTA 18 MG 24 HR TAB Dose: Take one(1) tablet daily. Starting date: 09/19/2006 Ending date: 10/27/2006 (Discontinued) methylphenidate ER (CONCERTA) 18 mg ORAL TO24 Dose: Take one(1) tablet daily. Starting date: 10/27/2006 Ending date: 11/20/2006 (Discontinued) methylphenidate ER (CONCERTA) 18 mg ORAL TO24 Dose: 1 po each am Starting date: 11/20/2006 Ending date: 12/25/2006 (Discontinued) methylphenidate ER (CONCERTA) 18 mg ORAL TO24 Dose: 1 po each am Starting date: 12/25/2006 Ending date: 01/30/2007 (Discontinued) methylphenidate ER (CONCERTA) 18 mg ORAL TO24 Dose: 1 po each am Starting date: 01/30/2007 Ending date: 02/28/2007 (Discontinued) methylphenidate ER (CONCERTA) 18 mg ORAL TO24 Dose: 1 po each am Starting date: 02/28/2007 Ending date: 03/26/2007 (Discontinued) methylphenidate ER (CONCERTA) 18 mg ORAL TO24 Dose: 1 po each am Starting date: 03/26/2007 Ending date: 04/29/2007 (Discontinued) methylphenidate ER (CONCERTA) 18 mg ORAL TO24 Dose: 1 po each am Starting date: 04/29/2007 Ending date: 06/01/2007 (Discontinued) methylphenidate hcl(CONCERTA 18 MG 24 HR TAB) Dose: 1 po each am Starting date: 06/01/2007 Ending date: 06/25/2007 (Discontinued) methylphenidate hcl(CONCERTA 18 MG 24 HR TAB) Dose: 1 po each am Starting date: 06/25/2007 Ending date: 07/22/2007 (Discontinued) methylphenidate hcl(CONCERTA 18 MG 24 HR TAB) Dose: 1 po each am Starting date: 06/25/2007 Ending date: 07/25/2007 methylphenidate hcl(CONCERTA 18 MG 24 HR TAB) Dose: 1 po each am Starting date: 07/22/2007 Ending date: 08/21/2007 CONCERTA 27 MG 24 HR TAB Dose: Take one(1) tablet daily on an empty stomach Starting date: 02/18/2006 Ending date: 03/05/2006 (Discontinued) CONCERTA 27 MG 24 HR TAB Dose: Take one(1) tablet daily. Starting date: 04/15/2006 Ending date: 05/19/2006 (Discontinued) CONCERTA 27 MG 24 HR TAB Dose: Take one(1) tablet daily. Starting date: 05/19/2006 Ending date: 06/17/2006 (Discontinued) CONCERTA 27 MG 24 HR TAB Dose: Take one(1) tablet daily. Starting date: 06/17/2006 Ending date: 07/21/2006 (Discontinued) CONCERTA 27 MG 24 HR TAB Dose: Take one(1) tablet daily. Starting date: 07/21/2006 Ending date: 08/19/2006 (Discontinued) CONCERTA 27 MG 24 HR TAB Dose: Take one(1) tablet daily. Starting date: 08/19/2006 Ending date: 09/19/2006 (Discontinued) CONCERTA 27 MG 24 HR TAB Dose: Take one(1) tablet daily. Starting date: 09/19/2006 Ending date: 10/27/2006 (Discontinued) methylphenidate ER (CONCERTA) 27 mg ORAL TO24 Dose: Take one(1) tablet daily. Starting date: 10/27/2006 Ending date: 11/20/2006 (Discontinued) methylphenidate ER (CONCERTA) 27 mg ORAL TO24 Dose: 1 po each am Starting date: 11/20/2006 Ending date: 12/25/2006 (Discontinued) methylphenidate ER (CONCERTA) 27 mg ORAL TO24 Dose: 1 po each am Starting date: 12/25/2006 Ending date: 01/30/2007 (Discontinued) methylphenidate ER (CONCERTA) 27 mg ORAL TO24 Dose: 1 po each am Starting date: 01/30/2007 Ending date: 02/28/2007 (Discontinued) methylphenidate ER (CONCERTA) 27 mg ORAL TO24 Dose: 1 po each am Starting date: 02/28/2007 Ending date: 03/26/2007 (Discontinued) methylphenidate ER (CONCERTA) 27 mg ORAL TO24 Dose: 1 po each am Starting date: 03/26/2007 Ending date: 04/29/2007 (Discontinued) methylphenidate ER (CONCERTA) 27 mg ORAL TO24 Dose: 1 po each am Starting date: 04/29/2007 Ending date: 06/01/2007 (Discontinued) methylphenidate hcl(CONCERTA 27 MG 24 HR TAB) Dose: 1 po each am Starting date: 06/01/2007 Ending date: 06/25/2007 (Discontinued) methylphenidate hcl(CONCERTA 27 MG 24 HR TAB) Dose: 1 po each am Starting date: 06/25/2007 Ending date: 07/22/2007 (Discontinued) methylphenidate hcl(CONCERTA 27 MG 24 HR TAB) Dose: 1 po each am Starting date: 06/25/2007 Ending date: 07/25/2007 methylphenidate hcl(CONCERTA 27 MG 24 HR TAB) Dose: 1 po each am Starting date: 07/22/2007 Ending date: 08/21/2007 methylphenidate hcl(CONCERTA 27 MG 24 HR TAB) Dose: 1 po each am Starting date: 08/27/2007 Ending date: 10/14/2007 (Discontinued) CONCERTA 36 MG 24 HR TAB Dose: 1 po each am Starting date: 03/05/2006 Ending date: 03/27/2006 (Discontinued) CONCERTA 36 MG 24 HR TAB Dose: 1 po each am Starting date: 03/27/2006 Ending date: 04/15/2006 (Discontinued) methylphenidate hcl(CONCERTA 36 MG 24 HR TAB) Dose: 1 po each am Starting date: 09/17/2007 Ending date: 10/14/2007 (Discontinued) methylphenidate hcl(CONCERTA 36 MG 24 HR TAB) Dose: 1 po each am Starting date: 10/14/2007 Ending date: 11/11/2007 (Discontinued) methylphenidate hcl(CONCERTA 36 MG 24 HR TAB) Dose: 1 po each am Starting date: 11/11/2007 Ending date: 12/14/2007 (Discontinued) methylphenidate hcl(CONCERTA 36 MG 24 HR TAB) Dose: 1 po each am Starting date: 12/14/2007 Ending date: 01/05/2008 (Discontinued) methylphenidate hcl(CONCERTA 36 MG 24 HR TAB) Dose: 1 po each am Starting date: 01/05/2008 Ending date: 01/11/2008 (Discontinued) methylphenidate hcl(CONCERTA 36 MG 24 HR TAB) Dose: 2 po each am Starting date: 09/22/2008 Ending date: 10/06/2008 (Discontinued) methylphenidate hcl(CONCERTA 36 MG 24 HR TAB) Dose: 2 po each am Starting date: 10/06/2008 Ending date: 10/21/2008 (Discontinued) methylphenidate hcl(CONCERTA 36 MG 24 HR TAB) Dose: 2 po each am Starting date: 10/21/2008 Ending date: 11/18/2008 (Discontinued) methylphenidate hcl(CONCERTA 36 MG 24 HR TAB) Dose: 2 po each am Starting date: 11/18/2008 Ending date: 12/16/2008 (Discontinued) methylphenidate hcl(CONCERTA 36 MG 24 HR TAB) Dose: 2 po each am Starting date: 12/16/2008 Ending date: 01/13/2009 (Discontinued) methylphenidate hcl(CONCERTA 36 MG 24 HR TAB) Dose: 2 po each am Starting date: 01/13/2009 Ending date: 02/14/2009 (Discontinued) methylphenidate hcl(CONCERTA 36 MG 24 HR TAB) Dose: 2 po each am Starting date: 02/14/2009 Ending date: 03/13/2009 (Discontinued) methylphenidate hcl(CONCERTA 36 MG 24 HR TAB) Dose: 2 po each am Starting date: 03/13/2009 Ending date: 04/10/2009 (Discontinued) methylphenidate hcl(CONCERTA 36 MG 24 HR TAB) Dose: 2 po each am Starting date: 04/10/2009 Ending date: 04/14/2009 (Discontinued) methylphenidate hcl(CONCERTA 36 MG 24 HR TAB) Dose: 2 po each am Starting date: 04/14/2009 Ending date: 04/14/2009 (Discontinued) methylphenidate hcl(CONCERTA 36 MG 24 HR TAB) Dose: 2 po each am Starting date: 04/14/2009 Ending date: 05/11/2009 (Discontinued) methylphenidate hcl(CONCERTA 36 MG 24 HR TAB) Dose: 2 po each am Starting date: 05/11/2009 Ending date: 06/06/2009 (Discontinued) methylphenidate hcl(CONCERTA 36 MG 24 HR TAB) Dose: 2 po each am Starting date: 06/06/2009 Ending date: 07/05/2009 (Discontinued) methylphenidate hcl(CONCERTA 36 MG 24 HR TAB) Dose: 2 po each am Starting date: 07/05/2009 Ending date: 08/03/2009 (Discontinued) methylphenidate hcl(CONCERTA 36 MG 24 HR TAB) Dose: 2 po each am Starting date: 08/03/2009 Ending date: 08/30/2009 (Discontinued) methylphenidate hcl(CONCERTA 36 MG 24 HR TAB) Dose: 2 po each am Starting date: 08/30/2009 Ending date: 09/25/2009 (Discontinued) methylphenidate hcl(CONCERTA 36 MG 24 HR TAB) Dose: 2 po each am Starting date: 09/25/2009 Ending date: 10/23/2009 (Discontinued) methylphenidate hcl(CONCERTA 36 MG 24 HR TAB) Dose: 2 po each am Starting date: 10/23/2009 Ending date: 11/16/2009 (Discontinued) methylphenidate hcl(CONCERTA 36 MG 24 HR TAB) Dose: 2 po each am Starting date: 11/16/2009 Ending date: 12/15/2009 (Discontinued) methylphenidate hcl(CONCERTA 36 MG 24 HR TAB) Dose: 2 po each am Starting date: 12/15/2009 Ending date: 01/08/2010 (Discontinued) methylphenidate hcl(CONCERTA 36 MG 24 HR TAB) Dose: 2 po each am Starting date: 01/08/2010 Ending date: 02/05/2010 (Discontinued) methylphenidate hcl(CONCERTA 36 MG 24 HR TAB) Dose: 2 po each am Starting date: 02/05/2010 Ending date: 03/01/2010 (Discontinued) methylphenidate hcl(CONCERTA 36 MG 24 HR TAB) Dose: 2 po each am Starting date: 03/01/2010 Ending date: 03/20/2010 (Discontinued) methylphenidate hcl(CONCERTA 36 MG 24 HR TAB) Dose: 2 po each am Starting date: 03/20/2010 Ending date: 04/16/2010 (Discontinued) FOCALIN XR 10 MG CAP Dose: Take one(1) tablet daily. Starting date: 06/13/2005 Ending date: 06/25/2005 (Discontinued) FOCALIN XR 10 MG CAP Dose: Take one(1) tablet daily. Starting date: 06/25/2005 Ending date: 07/29/2005 (Discontinued) FOCALIN XR 10 MG CAP Dose: Take one(1) tablet daily. Starting date: 07/29/2005 Ending date: 08/27/2005 (Discontinued) FOCALIN XR 10 MG CAP Dose: Take one(1) tablet daily. Starting date: 08/27/2005 Ending date: 09/14/2005 (Discontinued) FOCALIN XR 10 MG CAP Dose: Take one(1) tablet daily. Starting date: 09/14/2005 Ending date: 10/21/2005 (Discontinued) FOCALIN XR 10 MG CAP Dose: Take one(1) tablet daily. Starting date: 10/21/2005 Ending date: 01/08/2006 (Discontinued) methylphenidate (RITALIN) 20 mg ORAL tablet Dose: 1 po approx. 3-4 pm prn Starting date: 04/16/2010 Ending date: 05/10/2010 (Discontinued) methylphenidate (RITALIN) 20 mg ORAL tablet Dose: 1 po approx. 3-4 pm prn Starting date: 05/10/2010 Ending date: 06/05/2010 (Discontinued) methylphenidate (RITALIN) 20 mg ORAL tablet Dose: 1 po approx. 3-4 pm prn Starting date: 06/05/2010 Ending date: 06/29/2010 (Discontinued) methylphenidate (RITALIN) 20 mg ORAL tablet Dose: 1 po approx. 3-4 pm prn Starting date: 06/29/2010 Ending date: 07/26/2010 (Discontinued) methylphenidate (RITALIN) 20 mg ORAL tablet Dose: 1 po approx. 3-4 pm prn Starting date: 07/26/2010 Ending date: 08/17/2010 (Discontinued) methylphenidate (RITALIN) 20 mg ORAL tablet Dose: 1 po approx. 3-4 pm prn Starting date: 08/17/2010 Ending date: 09/11/2010 (Discontinued) methylphenidate (RITALIN) 20 mg ORAL tablet Dose: 20 mg Take at approx. 3-4 pm prn. Starting date: 09/11/2010 Ending date: 10/04/2010 (Discontinued) methylphenidate (RITALIN) 20 mg ORAL tablet Dose: 20 mg Take at approx. 3-4 pm prn. Starting date: 10/04/2010 Ending date: 10/27/2010 (Discontinued) methylphenidate (RITALIN) 20 mg ORAL tablet Dose: 20 mg Take at approx. 3-4 pm prn. Starting date: 10/27/2010 Ending date: 11/22/2010 (Discontinued) methylphenidate (RITALIN) 20 mg ORAL tablet Dose: 20 mg Take at approx. 3-4 pm prn. Starting date: 11/22/2010 Ending date: 12/17/2010 (Discontinued) methylphenidate (RITALIN) 20 mg ORAL tablet Dose: 20 mg Take at approx. 3-4 pm prn. Starting date: 12/17/2010 Ending date: 01/10/2011 (Discontinued) methylphenidate (RITALIN) 20 mg ORAL tablet Dose: 20 mg Take at approx. 3-4 pm prn. Starting date: 01/10/2011 Ending date: 02/04/2011 (Discontinued) methylphenidate (RITALIN) 20 mg ORAL tablet Dose: 20 mg Take at approx. 3-4 pm prn. Starting date: 02/04/2011 Ending date: 02/28/2011 (Discontinued) methylphenidate (RITALIN) 20 mg ORAL tablet Dose: 20 mg Take at approx. 3-4 pm prn. Starting date: 02/28/2011 Ending date: 03/22/2011 (Discontinued) methylphenidate (RITALIN) 20 mg ORAL tablet Dose: 20 mg Take at approx. 3-4 pm prn. Starting date: 03/22/2011 Ending date: 04/16/2011 (Discontinued) methylphenidate (RITALIN) 20 mg ORAL tablet Dose: 20 mg Take at approx. 3-4 pm prn. Starting date: 04/16/2011 Ending date: 05/10/2011 (Discontinued) methylphenidate (RITALIN) 20 mg ORAL tablet Dose: 20 mg Take at approx. 3-4 pm prn. Starting date: 05/10/2011 Ending date: 06/04/2011 (Discontinued) methylphenidate (RITALIN) 20 mg ORAL tablet Dose: 20 mg Take at approx. 3-4 pm prn. Starting date: 06/04/2011 Ending date: 06/27/2011 (Discontinued) methylphenidate (RITALIN) 20 mg ORAL tablet Dose: 20 mg Take at approx. 3-4 pm prn. Starting date: 06/27/2011 Ending date: 07/29/2011 (Discontinued) methylphenidate (RITALIN) 20 mg ORAL tablet Dose: 20 mg Take at approx. 3-4 pm prn. Starting date: 07/29/2011 Ending date: 08/23/2011 (Discontinued) methylphenidate (RITALIN) 20 mg ORAL tablet Dose: 20 mg Take at approx. 3-4 pm prn. Starting date: 08/23/2011 Ending date: 09/17/2011 (Discontinued) methylphenidate (RITALIN) 20 mg ORAL tablet Dose: 20 mg Take at approx. 3-4 pm prn. Starting date: 09/17/2011 Ending date: 10/17/2011 (Discontinued) methylphenidate (RITALIN) 20 mg ORAL tablet Dose: 20 mg Take at approx. 3-4 pm prn. Starting date: 10/17/2011 Ending date: 11/16/2011 (Discontinued) methylphenidate (RITALIN) 20 mg tablet Dose: 20 mg Take at approx. 3-4 pm prn. Starting date: 11/16/2011 Ending date: 12/16/2011 (Discontinued) methylphenidate (RITALIN) 20 mg tablet Dose: Take 1 tablet by mouth. Take at approx. 3-4 pm prn. Starting date: 12/16/2011 Ending date: 01/13/2012 (Discontinued) methylphenidate (RITALIN) 20 mg tablet Dose: Take 1 tablet by mouth. Take at approx. 3-4 pm prn. Starting date: 01/13/2012 Ending date: 02/10/2012 (Discontinued) methylphenidate (RITALIN) 20 mg tablet Dose: Take 1 tablet by mouth. Take at approx. 3-4 pm prn. Starting date: 02/10/2012 Ending date: 03/11/2012 (Discontinued) methylphenidate (RITALIN) 20 mg tablet Dose: Take 1 tablet by mouth. Take at approx. 3-4 pm prn. Starting date: 03/11/2012 Ending date: 04/08/2012 (Discontinued) methylphenidate (RITALIN) 20 mg tablet Dose: Take 1 tablet by mouth. Take at approx. 3-4 pm prn. Starting date: 04/08/2012 Ending date: 05/07/2012 (Discontinued) methylphenidate (RITALIN) 20 mg tablet Dose: Take 1 tablet by mouth. Take at approx. 3-4 pm prn. Starting date: 05/07/2012 Ending date: 06/04/2012 (Discontinued) methylphenidate (RITALIN) 20 mg tablet Dose: Take 1 tablet by mouth. Take at approx. 3-4 pm prn. Starting date: 06/04/2012 Ending date: 07/03/2012 (Discontinued) methylphenidate (RITALIN) 20 mg tablet Dose: Take 1 tablet by mouth. Take at approx. 3-4 pm prn. Starting date: 07/03/2012 Ending date: 07/31/2012 (Discontinued) methylphenidate (RITALIN) 20 mg tablet Dose: Take 1 tablet by mouth. Take at approx. 3-4 pm prn. Starting date: 07/31/2012 Ending date: 08/28/2012 (Discontinued) methylphenidate (RITALIN) 20 mg tablet Dose: Take 1 tablet by mouth. Take at approx. 3-4 pm prn. Starting date: 08/28/2012 Ending date: 09/26/2012 (Discontinued) methylphenidate (RITALIN) 20 mg tablet Dose: 20 mg NEEDED Take at approx. 3-4 pm. Starting date: 09/26/2012 Ending date: 10/24/2012 (Discontinued) methylphenidate (RITALIN) 20 mg tablet Dose: 20 mg NEEDED Take at approx. 3-4 pm. Starting date: 10/24/2012 Ending date: 11/21/2012 (Discontinued) methylphenidate (RITALIN) 20 mg tablet Dose: 20 mg NEEDED Take at approx. 3-4 pm. Starting date: 11/21/2012 Ending date: 12/22/2012 (Discontinued) methylphenidate (RITALIN) 20 mg tablet Dose: 20 mg NEEDED Take at approx. 3-4 pm. Starting date: 12/22/2012 Ending date: 01/19/2013 (Discontinued) methylphenidate (RITALIN) 20 mg tablet Dose: 20 mg NEEDED Take at approx. 3-4 pm. Starting date: 01/19/2013 Ending date: 02/18/2013 (Discontinued) methylphenidate (RITALIN) 20 mg tablet Dose: 20 mg NEEDED Take at approx. 3-4 pm. Starting date: 02/18/2013 Ending date: 03/22/2013 (Discontinued) methylphenidate (RITALIN) 20 mg tablet Dose: 20 mg NEEDED Take at approx. 3-4 pm. Starting date: 03/22/2013 Ending date: 04/19/2013 (Discontinued) methylphenidate (RITALIN) 20 mg tablet Dose: 20 mg NEEDED Take at approx. 3-4 pm. Starting date: 04/19/2013 Ending date: 05/18/2013 (Discontinued) methylphenidate (RITALIN) 20 mg tablet Dose: 20 mg NEEDED Take at approx. 3-4 pm. Starting date: 05/18/2013 Ending date: 06/15/2013 (Discontinued) methylphenidate (RITALIN) 20 mg tablet Dose: 20 mg NEEDED Take at approx. 3-4 pm. Starting date: 06/15/2013 Ending date: 07/14/2013 (Discontinued) methylphenidate (RITALIN) 20 mg tablet Dose: 20 mg NEEDED Take at approx. 3-4 pm. Starting date: 07/14/2013 Ending date: 08/12/2013 (Discontinued) methylphenidate (RITALIN) 20 mg tablet Dose: 20 mg NEEDED Take at approx. 3-4 pm. Starting date: 08/12/2013 Ending date: 09/07/2013 (Discontinued) methylphenidate (RITALIN) 20 mg tablet Dose: 20 mg NEEDED Take at approx. 3-4 pm. Starting date: 09/07/2013 Ending date: 10/06/2013 (Discontinued) methylphenidate (RITALIN) 20 mg tablet Dose: 20 mg NEEDED Take at approx. 3-4 pm. Starting date: 10/06/2013 Ending date: 11/03/2013 (Discontinued) methylphenidate (RITALIN) 20 mg tablet Dose: 20 mg NEEDED Take at approx. 3-4 pm. Starting date: 11/03/2013 Ending date: 12/02/2013 (Discontinued) methylphenidate (RITALIN) 20 mg tablet Dose: 20 mg NEEDED Take at approx. 3-4 pm. Starting date: 12/02/2013 Ending date: 12/29/2013 (Discontinued) methylphenidate (RITALIN) 20 mg tablet Dose: 20 mg NEEDED Take at approx. 3-4 pm. Starting date: 12/29/2013 Ending date: 01/28/2014 (Discontinued) methylphenidate (RITALIN) 20 mg tablet Dose: 20 mg NEEDED Take at approx. 3-4 pm. Starting date: 01/28/2014 Ending date: 03/01/2014 (Discontinued) methylphenidate (RITALIN) 20 mg tablet Dose: 20 mg NEEDED Take at approx. 3-4 pm. Starting date: 03/01/2014 Ending date: 03/28/2014 (Discontinued) methylphenidate (RITALIN) 20 mg tablet Dose: 20 mg NEEDED Take at approx. 3-4 pm. Starting date: 03/28/2014 Ending date: 04/22/2014 (Discontinued) methylphenidate (RITALIN) 20 mg tablet Dose: 20 mg NEEDED Take at approx. 3-4 pm. Starting date: 04/22/2014 Ending date: 06/09/2014 (Discontinued) methylphenidate (RITALIN) 20 mg tablet Dose: 20 mg NEEDED Take at approx. 3-4 pm. Starting date: 04/22/2014 Ending date: 04/22/2014 (Discontinued) methylphenidate (RITALIN) 20 mg tablet Dose: 20 mg NEEDED Take at approx. 3-4 pm. Starting date: 04/22/2014 Ending date: 04/22/2014 (Discontinued) methylphenidate (RITALIN) 20 mg tablet Dose: 20 mg NEEDED Take at approx. 3-4 pm. Starting date: 06/22/2014 Ending date: 06/09/2014 (Discontinued) methylphenidate (RITALIN) 20 mg tablet Dose: 20 mg NEEDED Take at approx. 3-4 pm. Starting date: 05/23/2014 Ending date: 07/21/2014 (Discontinued) methylphenidate (RITALIN) 20 mg tablet Dose: 20 mg NEEDED Take at approx. 3-4 pm. Starting date: 07/21/2014 Ending date: 10/18/2014 (Discontinued) methylphenidate (RITALIN) 20 mg tablet Dose: 20 mg NEEDED Take at approx. 3-4 pm. Starting date: 08/22/2014 Ending date: 10/18/2014 (Discontinued) methylphenidate (RITALIN) 20 mg tablet Dose: 20 mg NEEDED Take at approx. 3-4 pm. Starting date: 09/19/2014 Ending date: 10/18/2014 (Discontinued) methylphenidate (RITALIN) 20 mg tablet Dose: 20 mg NEEDED Take at approx. 3-4 pm. Starting date: 10/18/2014 Ending date: 11/17/2014 (Discontinued) methylphenidate (RITALIN) 20 mg tablet Dose: 20 mg NEEDED Take at approx. 3-4 pm. Starting date: 01/18/2015 Ending date: 02/16/2015 (Discontinued) methylphenidate (RITALIN) 20 mg tablet Dose: 20 mg NEEDED Take at approx. 3-4 pm. Starting date: 12/19/2014 Ending date: 02/16/2015 (Discontinued) methylphenidate (RITALIN) 20 mg tablet Dose: 20 mg NEEDED Take at approx. 3-4 pm. Starting date: 11/18/2014 Ending date: 02/16/2015 (Discontinued) methylphenidate (RITALIN) 20 mg tablet Dose: 20 mg NEEDED Take at approx. 3-4 pm. Starting date: 02/17/2015 Ending date: 05/16/2015 (Discontinued) methylphenidate (RITALIN) 20 mg tablet Dose: 20 mg NEEDED Take at approx. 3-4 pm. Starting date: 03/19/2015 Ending date: 05/12/2015 (Discontinued) methylphenidate (RITALIN) 20 mg tablet Dose: 20 mg NEEDED Take at approx. 3-4 pm. Starting date: 04/18/2015 Ending date: 05/12/2015 (Discontinued) methylphenidate (RITALIN) 20 mg tablet Dose: 20 mg NEEDED Take at approx. 3-4 pm. Starting date: 05/16/2015 Ending date: 06/14/2015 (Discontinued) methylphenidate (RITALIN) 20 mg tablet Dose: 20 mg NEEDED Take at approx. 3-4 pm. Starting date: 06/14/2015 Ending date: 07/11/2015 (Discontinued) methylphenidate (RITALIN) 20 mg tablet Dose: 20 mg NEEDED Take at approx. 3-4 pm. Starting date: 07/11/2015 Ending date: 10/11/2015 (Discontinued) methylphenidate (RITALIN) 20 mg tablet Dose: 20 mg NEEDED Take at approx. 3-4 pm. Starting date: 09/09/2015 Ending date: 10/11/2015 (Discontinued) methylphenidate (RITALIN) 20 mg tablet Dose: 20 mg NEEDED Take at approx. 3-4 pm. Starting date: 08/11/2015 Ending date: 10/11/2015 (Discontinued) methylphenidate (RITALIN) 20 mg tablet Dose: 20 mg NEEDED Take at approx. 3-4 pm. Starting date: 11/10/2015 Ending date: 12/05/2015 (Discontinued) methylphenidate (RITALIN) 20 mg tablet Dose: 20 mg NEEDED Take at approx. 3-4 pm. Starting date: 12/11/2015 Ending date: 03/12/2016 (Discontinued) methylphenidate (RITALIN) 20 mg tablet Dose: 20 mg NEEDED Take at approx. 3-4 pm. Starting date: 10/11/2015 Ending date: 03/12/2016 (Discontinued) methylphenidate (RITALIN) 20 mg tablet Dose: 20 mg NEEDED Take at approx. 3-4 pm. Starting date: 01/09/2016 Ending date: 02/09/2016 (Discontinued) methylphenidate (RITALIN) 20 mg tablet Dose: 20 mg NEEDED Take at approx. 3-4 pm. Starting date: 02/09/2016 Ending date: 03/12/2016 (Discontinued) methylphenidate (RITALIN) 20 mg tablet Dose: 20 mg NEEDED Take at approx. 3-4 pm. Starting date: 05/09/2016 Ending date: 06/07/2016 (Discontinued) methylphenidate (RITALIN) 20 mg tablet Dose: 20 mg NEEDED Take at approx. 3-4 pm. Starting date: 04/10/2016 Ending date: 06/07/2016 (Discontinued) methylphenidate (RITALIN) 20 mg tablet Dose: 20 mg NEEDED Take at approx. 3-4 pm. Starting date: 03/12/2016 Ending date: 06/07/2016 (Discontinued) methylphenidate (RITALIN) 20 mg tablet Dose: 20 mg NEEDED Take at approx. 3-4 pm. Starting date: 06/07/2016 Ending date: 07/09/2016 (Discontinued) methylphenidate (RITALIN) 20 mg tablet Dose: 20 mg NEEDED between 3-4 pm Starting date: 08/08/2016 Ending date: 09/09/2016 (Discontinued) methylphenidate (RITALIN) 20 mg tablet Dose: 20 mg NEEDED between 3-4 pm Starting date: 09/07/2016 Ending date: 09/09/2016 (Discontinued) methylphenidate (RITALIN) 20 mg tablet Dose: 20 mg NEEDED Take at approx. 3-4 pm. Starting date: 07/09/2016 Ending date: 09/09/2016 (Discontinued) methylphenidate (RITALIN) 20 mg tablet Dose: 20 mg NEEDED Take at approx. 3-4 pm. Starting date: 11/09/2016 Ending date: 12/09/2016 (Discontinued) methylphenidate (RITALIN) 20 mg tablet Dose: 20 mg NEEDED Take at approx. 3-4 pm. Starting date: 10/10/2016 Ending date: 12/09/2016 (Discontinued) methylphenidate (RITALIN) 20 mg tablet Dose: 20 mg NEEDED Take at approx. 3-4 pm. Starting date: 09/09/2016 Ending date: 12/09/2016 (Discontinued) methylphenidate (RITALIN) 20 mg tablet Dose: 20 mg NEEDED Take at approx. 3-4 pm. Starting date: 12/09/2016 Ending date: 01/07/2017 (Discontinued) methylphenidate (RITALIN) 20 mg tablet Dose: 20 mg NEEDED Take at approx. 3-4 pm. Starting date: 01/07/2017 Ending date: 02/03/2017 (Discontinued) methylphenidate (RITALIN) 20 mg tablet Dose: 20 mg NEEDED Take at approx. 3-4 pm. Starting date: 02/03/2017 Ending date: 03/14/2017 (Discontinued) methylphenidate (RITALIN) 20 mg tablet Dose: 20 mg NEEDED Take at approx. 3-4 pm. Starting date: 05/14/2017 Ending date: 06/11/2017 (Discontinued) methylphenidate (RITALIN) 20 mg tablet Dose: 20 mg NEEDED Take at approx. 3-4 pm. Starting date: 04/13/2017 Ending date: 06/11/2017 (Discontinued) methylphenidate (RITALIN) 20 mg tablet Dose: 20 mg NEEDED Take at approx. 3-4 pm. Starting date: 03/14/2017 Ending date: 06/11/2017 (Discontinued) methylphenidate (RITALIN) 20 mg tablet Dose: 20 mg NEEDED Take at approx. 3-4 pm. Starting date: 06/11/2017 Ending date: 09/08/2017 (Discontinued) methylphenidate (RITALIN) 20 mg tablet Dose: 20 mg NEEDED Take at approx. 3-4 pm. Starting date: 08/10/2017 Ending date: 09/08/2017 (Discontinued) methylphenidate (RITALIN) 20 mg tablet Dose: 20 mg NEEDED Take at approx. 3-4 pm. Starting date: 07/11/2017 Ending date: 09/08/2017 (Discontinued) methylphenidate (RITALIN) 20 mg tablet Dose: 20 mg NEEDED Take at approx. 3-4 pm. Starting date: 09/08/2017 Ending date: 09/30/2017 (Discontinued) methylphenidate (RITALIN) 20 mg tablet Dose: 20 mg NEEDED Take at approx. 3-4 pm. Starting date: 09/30/2017 Ending date: 11/07/2017 (Discontinued) methylphenidate (RITALIN) 20 mg tablet Dose: 20 mg NEEDED Take at approx. 3-4 pm. Starting date: 11/07/2017 Ending date: 12/08/2017 (Discontinued) methylphenidate (RITALIN) 20 mg tablet Dose: 20 mg NEEDED Take at approx. 3-4 pm. Starting date: 12/08/2017 Ending date: 03/04/2018 (Discontinued) methylphenidate (RITALIN) 20 mg tablet Dose: 20 mg NEEDED Take at approx. 3-4 pm. Starting date: 01/07/2018 Ending date: 03/04/2018 (Discontinued) methylphenidate (RITALIN) 20 mg tablet Dose: 20 mg NEEDED Take at approx. 3-4 pm. Starting date: 02/06/2018 Ending date: 03/04/2018 (Discontinued) methylphenidate (RITALIN) 20 mg tablet Dose: 20 mg NEEDED Take at approx. 3-4 pm. Starting date: 05/04/2018 Ending date: 05/28/2018 (Discontinued) methylphenidate (RITALIN) 20 mg tablet Dose: 20 mg NEEDED Take at approx. 3-4 pm. Starting date: 04/03/2018 Ending date: 03/25/2018 (Discontinued) methylphenidate (RITALIN) 20 mg tablet Dose: 20 mg NEEDED Take at approx. 3-4 pm. Starting date: 03/04/2018 Ending date: 03/25/2018 (Discontinued) methylphenidate (RITALIN) 20 mg tablet Dose: 20 mg NEEDED Take at approx. 3-4 pm. Starting date: 05/28/2018 Ending date: 06/18/2018 (Discontinued) methylphenidate (RITALIN) 20 mg tablet Dose: 20 mg NEEDED Take at approx. 3-4 pm. Starting date: 06/18/2018 Ending date: 07/22/2018 (Discontinued) methylphenidate (RITALIN) 20 mg tablet Dose: 20 mg NEEDED Take at approx. 3-4 pm. Starting date: 07/23/2018 Ending date: 08/20/2018 (Discontinued) methylphenidate (RITALIN) 20 mg tablet Dose: 20 mg NEEDED Take at approx. 3-4 pm. Starting date: 08/20/2018 Ending date: 09/08/2018 (Discontinued) methylphenidate (RITALIN) 20 mg tablet Dose: 20 mg NEEDED Take at approx. 3-4 pm. Starting date: 09/08/2018 Ending date: 10/19/2018 (Discontinued) methylphenidate (RITALIN) 20 mg tablet Dose: 20 mg NEEDED Take at approx. 3-4 pm. Starting date: 10/21/2018 Ending date: 11/17/2018 (Discontinued) methylphenidate (RITALIN) 20 mg tablet Dose: 20 mg NEEDED Take at approx. 3-4 pm. Starting date: 11/17/2018 Ending date: 12/18/2018 (Discontinued) methylphenidate (RITALIN) 20 mg tablet Dose: 20 mg NEEDED Take at approx. 3-4 pm. Starting date: 12/18/2018 Ending date: 01/19/2019 (Discontinued) methylphenidate (RITALIN) 20 mg tablet Dose: 20 mg NEEDED Take at approx. 3-4 pm. Starting date: 01/19/2019 Ending date: 02/17/2019 (Discontinued) methylphenidate (RITALIN) 20 mg tablet Dose: 20 mg NEEDED Take at approx. 3-4 pm. Starting date: 02/18/2019 Ending date: 03/18/2019 (Discontinued) methylphenidate (RITALIN) 20 mg tablet Dose: 20 mg NEEDED Take at approx. 3-4 pm. Starting date: 03/18/2019 Ending date: 04/13/2019 (Discontinued) methylphenidate (RITALIN) 20 mg tablet Dose: 20 mg NEEDED Take at approx. 3-4 pm. Starting date: 04/13/2019 Ending date: 07/15/2019 (Discontinued) methylphenidate (RITALIN) 20 mg tablet Dose: 20 mg NEEDED Take at approx. 3-4 pm. Starting date: 05/17/2019 Ending date: 06/16/2019 (Discontinued) methylphenidate (RITALIN) 20 mg tablet Dose: 20 mg NEEDED Take at approx. 3-4 pm. Starting date: 06/17/2019 Ending date: 07/15/2019 (Discontinued) methylphenidate (RITALIN) 20 mg tablet Dose: 20 mg NEEDED Take at approx. 3-4 pm. Starting date: 07/15/2019 Ending date: 08/20/2019 (Discontinued) methylphenidate (RITALIN) 20 mg tablet Dose: 20 mg NEEDED Take at approx. 3-4 pm. Starting date: 08/20/2019 Ending date: 09/17/2019 (Discontinued) methylphenidate (RITALIN) 20 mg tablet Dose: 20 mg NEEDED Take at approx. 3-4 pm. Starting date: 09/17/2019 Ending date: 10/19/2019 (Discontinued) methylphenidate (RITALIN) 20 mg tablet Dose: 20 mg NEEDED Take at approx. 3-4 pm. Starting date: 10/19/2019 Ending date: 11/17/2019 (Discontinued) methylphenidate (RITALIN) 20 mg tablet Dose: 20 mg NEEDED Take at approx. 3-4 pm. Starting date: 11/18/2019 Ending date: 12/22/2019 (Discontinued) methylphenidate (RITALIN) 20 mg tablet Dose: 20 mg NEEDED Take at approx. 3-4 pm. Starting date: 12/23/2019 Ending date: 01/28/2020 (Discontinued) methylphenidate (RITALIN) 20 mg tablet Dose: 20 mg NEEDED Take at approx. 3-4 pm. Starting date: 01/28/2020 Ending date: 03/01/2020 (Discontinued) methylphenidate (RITALIN) 20 mg tablet Dose: 20 mg NEEDED Take at approx. 3-4 pm. Starting date: 03/02/2020 Ending date: 04/07/2020 (Discontinued) methylphenidate (RITALIN) 20 mg tablet Dose: 20 mg NEEDED Take at approx. 3-4 pm. Starting date: 04/07/2020 Ending date: 05/12/2020 (Discontinued) methylphenidate (RITALIN) 20 mg tablet Dose: 20 mg NEEDED Take at approx. 3-4 pm. Starting date: 05/12/2020 Ending date: 06/16/2020 (Discontinued) methylphenidate (RITALIN) 20 mg tablet Dose: 20 mg NEEDED Take at approx. 3-4 pm. Starting date: 06/16/2020 Ending date: 07/21/2020 (Discontinued) methylphenidate (RITALIN) 20 mg tablet Dose: 20 mg NEEDED Take at approx. 3-4 pm. Starting date: 07/21/2020 Ending date: 08/29/2020 (Discontinued) methylphenidate (RITALIN) 20 mg tablet Dose: 20 mg NEEDED Take at approx. 3-4 pm. Starting date: 08/29/2020 Ending date: 10/10/2020 (Discontinued) methylphenidate (RITALIN) 20 mg tablet Dose: 20 mg NEEDED Take at approx. 3-4 pm. Starting date: 10/10/2020 Ending date: 11/18/2020 (Discontinued) methylphenidate (RITALIN) 20 mg tablet Dose: 20 mg NEEDED Take at approx. 3-4 pm. Starting date: 11/20/2020 Ending date: 2020 (Discontinued) methylphenidate (RITALIN) 20 mg tablet Dose: 20 mg NEEDED Take at approx. 3-4 pm. Starting date: 01/02/2021 Ending date: 02/10/2021 (Discontinued) methylphenidate (RITALIN) 20 mg tablet Dose: 20 mg NEEDED Take at approx. 3-4 pm. Starting date: 02/13/2021 Ending date: 03/17/2021 (Discontinued) methylphenidate (RITALIN) 20 mg tablet Dose: 20 mg NEEDED Take at approx. 3-4 pm. Starting date: 03/17/2021 Ending date: 05/03/2021 (Discontinued) methylphenidate (RITALIN) 20 mg tablet Dose: 20 mg NEEDED Take at approx. 3-4 pm. Starting date: 05/03/2021 Ending date: 06/13/2021 (Discontinued) methylphenidate (RITALIN) 20 mg tablet Dose: 20 mg NEEDED Take at approx. 3-4 pm. Starting date: 06/14/2021 Ending date: 07/12/2021 (Discontinued) methylphenidate (RITALIN) 20 mg tablet Dose: 20 mg NEEDED Take at approx. 3-4 pm. Starting date: 07/12/2021 Ending date: 08/14/2021 (Discontinued) methylphenidate (RITALIN) 20 mg tablet Dose: 20 mg NEEDED Take at approx. 3-4 pm. Starting date: 08/14/2021 Ending date: 09/11/2021 (Discontinued) methylphenidate (RITALIN) 20 mg tablet Dose: 20 mg NEEDED Take at approx. 3-4 pm. Starting date: 09/11/2021 Ending date: 10/09/2021 (Discontinued) methylphenidate (RITALIN) 20 mg tablet Dose: 20 mg NEEDED Take at approx. 3-4 pm. Starting date: 10/09/2021 Ending date: 11/06/2021 (Discontinued) methylphenidate (RITALIN) 20 mg tablet Dose: 20 mg NEEDED Take at approx. 3-4 pm. Starting date: 11/07/2021 Ending date: 12/07/2021 (Discontinued) methylphenidate (RITALIN) 20 mg tablet Dose: 20 mg NEEDED Take at approx. 3-4 pm. Starting date: 12/07/2021 Ending date: 01/04/2022 (Discontinued) methylphenidate (RITALIN) 20 mg tablet Dose: 20 mg NEEDED Take at approx. 3-4 pm. Starting date: 01/04/2022 Ending date: 01/30/2022 (Discontinued) methylphenidate (RITALIN) 20 mg tablet Dose: 20 mg NEEDED Take at approx. 3-4 pm. Starting date: 01/30/2022 Ending date: 03/05/2022 (Discontinued) methylphenidate (RITALIN) 20 mg tablet Dose: 20 mg NEEDED Take at approx. 3-4 pm. Starting date: 03/05/2022 Ending date: 04/04/2022 (Discontinued) methylphenidate (RITALIN) 20 mg tablet Dose: 20 mg NEEDED Take at approx. 3-4 pm. Starting date: 04/04/2022 Ending date: 05/09/2022 (Discontinued) methylphenidate (RITALIN) 20 mg tablet Dose: 20 mg NEEDED Take at approx. 3-4 pm. Starting date: 05/09/2022 Ending date: 06/06/2022 (Discontinued) methylphenidate (RITALIN) 20 mg tablet Dose: 20 mg NEEDED Take at approx. 3-4 pm. Starting date: 06/06/2022 Ending date: 07/03/2022 (Discontinued) methylphenidate (RITALIN) 20 mg tablet Dose: 20 mg NEEDED Take at approx. 3-4 pm. Starting date: 07/04/2022 Ending date: 08/05/2022 (Discontinued) methylphenidate (RITALIN) 20 mg tablet Dose: 20 mg NEEDED Take at approx. 3-4 pm. Starting date: 08/06/2022 Ending date: 09/09/2022 (Discontinued) methylphenidate (RITALIN) 20 mg tablet Dose: 20 mg NEEDED Take at approx. 3-4 pm. Starting date: 09/10/2022 Ending date: 10/09/2022 (Discontinued) methylphenidate (RITALIN) 20 mg tablet Dose: 20 mg NEEDED Take at approx. 3-4 pm. Starting date: 10/10/2022 Ending date: 10/28/2022 (Discontinued) methylphenidate (RITALIN) 20 mg tablet Dose: 20 mg NEEDED Take at approx. 3-4 pm. Starting date: 11/09/2022 Ending date: 12/09/2022 methylphenidate (RITALIN) 20 mg tablet Dose: 20 mg NEEDED Take at approx. 3-4 pm. Starting date: 01/08/2023 Ending date: 02/07/2023 methylphenidate (RITALIN) 20 mg tablet Dose: 20 mg NEEDED Take at approx. 3-4 pm. Starting date: 12/09/2022 Ending date: 01/08/2023 METHYLPHENIDATE 10 MG TAB Dose: one half (1/2) to one(1) tablet twice a day Starting date: 02/10/2006 Ending date: 03/05/2006 (Discontinued) Methylphenidate HCl (CONCERTA) 36 mg ORAL CR tablet Dose: 2 po each am Starting date: 04/16/2010 Ending date: 05/10/2010 (Discontinued) Methylphenidate HCl (CONCERTA) 36 mg ORAL CR tablet Dose: 2 po each am Starting date: 05/10/2010 Ending date: 06/05/2010 (Discontinued) Methylphenidate HCl (CONCERTA) 36 mg ORAL CR tablet Dose: 2 po each am Starting date: 06/05/2010 Ending date: 06/29/2010 (Discontinued) Methylphenidate HCl (CONCERTA) 36 mg ORAL CR tablet Dose: 2 po each am Starting date: 06/29/2010 Ending date: 07/26/2010 (Discontinued) Methylphenidate HCl (CONCERTA) 36 mg ORAL CR tablet Dose: 2 po each am Starting date: 07/26/2010 Ending date: 08/17/2010 (Discontinued) Methylphenidate HCl (CONCERTA) 36 mg ORAL CR tablet Dose: 2 po each am Starting date: 08/17/2010 Ending date: 09/16/2010 Methylphenidate HCl (CONCERTA) 36 mg ORAL CR tablet Dose: 72 mg EVERY MORNING Starting date: 09/11/2010 Ending date: 10/04/2010 (Discontinued) Methylphenidate HCl (CONCERTA) 36 mg ORAL CR tablet Dose: 72 mg EVERY MORNING Starting date: 10/04/2010 Ending date: 10/27/2010 (Discontinued) Methylphenidate HCl (CONCERTA) 36 mg ORAL CR tablet Dose: 72 mg EVERY MORNING Starting date: 10/27/2010 Ending date: 11/22/2010 (Discontinued) Methylphenidate HCl (CONCERTA) 36 mg ORAL CR tablet Dose: 72 mg EVERY MORNING Starting date: 11/22/2010 Ending date: 12/17/2010 (Discontinued) Methylphenidate HCl (CONCERTA) 36 mg ORAL CR tablet Dose: 72 mg EVERY MORNING Starting date: 12/17/2010 Ending date: 01/10/2011 (Discontinued) Methylphenidate HCl (CONCERTA) 36 mg ORAL CR tablet Dose: 72 mg EVERY MORNING Starting date: 01/10/2011 Ending date: 02/04/2011 (Discontinued) Methylphenidate HCl (CONCERTA) 36 mg ORAL CR tablet Dose: 72 mg EVERY MORNING Starting date: 02/04/2011 Ending date: 03/06/2011 (Discontinued) methylphenidate ER (CONCERTA) 36 mg ORAL CR tablet Dose: 72 mg EVERY MORNING Starting date: 02/28/2011 Ending date: 03/22/2011 (Discontinued) methylphenidate ER (CONCERTA) 36 mg ORAL CR tablet Dose: 72 mg EVERY MORNING Starting date: 03/22/2011 Ending date: 04/16/2011 (Discontinued) methylphenidate ER (CONCERTA) 36 mg ORAL CR tablet Dose: 72 mg EVERY MORNING Starting date: 04/16/2011 Ending date: 05/10/2011 (Discontinued) methylphenidate ER (CONCERTA) 36 mg ORAL CR tablet Dose: 72 mg EVERY MORNING Starting date: 05/10/2011 Ending date: 05/28/2011 (Discontinued) methylphenidate hcl(CONCERTA 54 MG 24 HR TAB) Dose: 1 po each am Starting date: 01/11/2008 Ending date: 02/13/2008 (Discontinued) methylphenidate hcl(CONCERTA 54 MG 24 HR TAB) Dose: 1 po each am Starting date: 02/13/2008 Ending date: 03/11/2008 (Discontinued) methylphenidate hcl(CONCERTA 54 MG 24 HR TAB) Dose: 1 po each am Starting date: 03/11/2008 Ending date: 04/09/2008 (Discontinued) methylphenidate hcl(CONCERTA 54 MG 24 HR TAB) Dose: 1 po each am Starting date: 04/09/2008 Ending date: 05/06/2008 (Discontinued) methylphenidate hcl(CONCERTA 54 MG 24 HR TAB) Dose: 1 po each am Starting date: 05/06/2008 Ending date: 06/03/2008 (Discontinued) methylphenidate hcl(CONCERTA 54 MG 24 HR TAB) Dose: 1 po each am Starting date: 06/03/2008 Ending date: 06/22/2008 (Discontinued) methylphenidate hcl(CONCERTA 54 MG 24 HR TAB) Dose: 1 po each am Starting date: 06/22/2008 Ending date: 07/30/2008 (Discontinued) methylphenidate hcl(CONCERTA 54 MG 24 HR TAB) Dose: 1 po each am Starting date: 07/30/2008 Ending date: 08/23/2008 (Discontinued) methylphenidate hcl(CONCERTA 54 MG 24 HR TAB) Dose: 1 po each am Starting date: 08/23/2008 Ending date: 09/22/2008 (Discontinued) methylphenidate hcl(RITALIN 20 MG TAB) Dose: 1 po approx. 3-4 pm prn Starting date: 04/14/2009 Ending date: 05/11/2009 (Discontinued) methylphenidate hcl(RITALIN 20 MG TAB) Dose: 1 po approx. 3-4 pm prn Starting date: 05/11/2009 Ending date: 06/06/2009 (Discontinued) methylphenidate hcl(RITALIN 20 MG TAB) Dose: 1 po approx. 3-4 pm prn Starting date: 06/06/2009 Ending date: 07/05/2009 (Discontinued) methylphenidate hcl(RITALIN 20 MG TAB) Dose: 1 po approx. 3-4 pm prn Starting date: 07/05/2009 Ending date: 08/03/2009 (Discontinued) methylphenidate hcl(RITALIN 20 MG TAB) Dose: 1 po approx. 3-4 pm prn Starting date: 08/03/2009 Ending date: 08/30/2009 (Discontinued) methylphenidate hcl(RITALIN 20 MG TAB) Dose: 1 po approx. 3-4 pm prn Starting date: 08/30/2009 Ending date: 09/25/2009 (Discontinued) methylphenidate hcl(RITALIN 20 MG TAB) Dose: 1 po approx. 3-4 pm prn Starting date: 09/25/2009 Ending date: 10/23/2009 (Discontinued) methylphenidate hcl(RITALIN 20 MG TAB) Dose: 1 po approx. 3-4 pm prn Starting date: 10/23/2009 Ending date: 11/16/2009 (Discontinued) methylphenidate hcl(RITALIN 20 MG TAB) Dose: 1 po approx. 3-4 pm prn Starting date: 11/16/2009 Ending date: 12/15/2009 (Discontinued) methylphenidate hcl(RITALIN 20 MG TAB) Dose: 1 po approx. 3-4 pm prn Starting date: 12/15/2009 Ending date: 01/08/2010 (Discontinued) methylphenidate hcl(RITALIN 20 MG TAB) Dose: 1 po approx. 3-4 pm prn Starting date: 01/08/2010 Ending date: 02/05/2010 (Discontinued) methylphenidate hcl(RITALIN 20 MG TAB) Dose: 1 po approx. 3-4 pm prn Starting date: 02/05/2010 Ending date: 03/01/2010 (Discontinued) methylphenidate hcl(RITALIN 20 MG TAB) Dose: 1 po approx. 3-4 pm prn Starting date: 03/01/2010 Ending date: 03/20/2010 (Discontinued) methylphenidate hcl(RITALIN 20 MG TAB) Dose: 1 po approx. 3-4 pm prn Starting date: 03/20/2010 Ending date: 04/16/2010 (Discontinued) RITALIN 10 MG TAB Dose: Take one(1) tablet daily at 3:30 pm Starting date: 09/14/2005 Ending date: 10/21/2005 (Discontinued) RITALIN 10 MG TAB Dose: Take one(1) tablet daily at 3:30 pm Starting date: 10/21/2005 Ending date: 10/31/2005 (Discontinued) RITALIN 10 MG TAB Dose: Take one(1) tablet po at 7 am,12 noon and then 4 pm Starting date: 10/31/2005 Ending date: 12/13/2005 (Discontinued) RITALIN 10 MG TAB Dose: Take one(1) tablet po at 7 am,12 noon and then 4 pm Starting date: 12/13/2005 Ending date: 01/08/2006 (Discontinued) RITALIN 10 MG TAB Dose: 1 tab po q7 am and 12 noon and then 4 pm Starting date: 01/08/2006 Ending date: 03/05/2006 (Discontinued) RITALIN 5 MG TAB Dose: 1 -2 po at 3pm as needed Starting date: 03/05/2006 Ending date: 03/27/2006 (Discontinued) RITALIN 5 MG TAB Dose: 1 -2 po at 3pm as needed Starting date: 03/27/2006 Ending date: 04/15/2006 (Discontinued) RITALIN 5 MG TAB Dose: 1 -2 po at 3pm as needed Starting date: 04/15/2006 Ending date: 05/15/2006 RITALIN 5 MG TAB Dose: Take 1 or 2 tablet at 3pm prn Starting date: 07/21/2006 Ending date: 08/19/2006 (Discontinued) RITALIN 5 MG TAB Dose: Take 1 or 2 tablet at 3pm prn Starting date: 08/19/2006 Ending date: 10/27/2006 (Discontinued) methylphenidate (RITALIN) 5 mg ORAL Tab Dose: Take 1 or 2 tablet at 3pm prn Starting date: 10/27/2006 Ending date: 11/20/2006 (Discontinued) methylphenidate (RITALIN) 5 mg ORAL Tab Dose: Take 1 or 2 tablet at 3pm prn Starting date: 11/20/2006 Ending date: 12/25/2006 (Discontinued) methylphenidate (RITALIN) 5 mg ORAL Tab Dose: Take 1 or 2 tablet at 3pm prn Starting date: 12/25/2006 Ending date: 01/30/2007 (Discontinued) methylphenidate (RITALIN) 5 mg ORAL Tab Dose: Take 1 or 2 tablet at 3pm prn Starting date: 01/30/2007 Ending date: 02/28/2007 (Discontinued) methylphenidate (RITALIN) 5 mg ORAL Tab Dose: Take 1 or 2 tablet at 3pm prn Starting date: 02/28/2007 Ending date: 03/26/2007 (Discontinued) methylphenidate (RITALIN) 5 mg ORAL Tab Dose: Take 1 or 2 tablet at 3pm prn Starting date: 03/26/2007 Ending date: 04/29/2007 (Discontinued) methylphenidate (RITALIN) 5 mg ORAL Tab Dose: Take 1 or 2 tablet at 3pm prn Starting date: 04/29/2007 Ending date: 06/01/2007 (Discontinued) methylphenidate hcl(RITALIN 5 MG TAB) Dose: Take 1 or 2 tablet at 3pm prn Starting date: 06/01/2007 Ending date: 06/25/2007 (Discontinued) methylphenidate hcl(RITALIN 5 MG TAB) Dose: Take 1 or 2 tablet at 3pm prn Starting date: 06/25/2007 Ending date: 07/22/2007 (Discontinued) methylphenidate hcl(RITALIN 5 MG TAB) Dose: Take 1 or 2 tablet at 3pm prn Starting date: 06/25/2007 Ending date: 07/25/2007 methylphenidate hcl(RITALIN 5 MG TAB) Dose: Take 1 or 2 tablet at 3pm prn Starting date: 07/22/2007 Ending date: 08/27/2007 (Discontinued) methylphenidate hcl(RITALIN 5 MG TAB) Dose: Take 1 or 2 tablet at 3pm prn Starting date: 08/27/2007 Ending date: 10/14/2007 (Discontinued) methylphenidate hcl(RITALIN 5 MG TAB) Dose: Take 1 or 2 tablet at 3pm prn Starting date: 10/14/2007 Ending date: 11/11/2007 (Discontinued) methylphenidate hcl(RITALIN 5 MG TAB) Dose: Take 1 or 2 tablet at 3pm prn Starting date: 11/11/2007 Ending date: 12/14/2007 (Discontinued) methylphenidate hcl(RITALIN 5 MG TAB) Dose: Take 1 or 2 tablet at 3pm prn Starting date: 12/14/2007 Ending date: 01/05/2008 (Discontinued) methylphenidate hcl(RITALIN 5 MG TAB) Dose: Take 1 or 2 tablet at 3pm prn Starting date: 01/05/2008 Ending date: 01/11/2008 (Discontinued) methylphenidate hcl(RITALIN 5 MG TAB) Dose: Take 1 or 2 tablet at 3pm prn Starting date: 01/11/2008 Ending date: 02/13/2008 (Discontinued) methylphenidate hcl(RITALIN 5 MG TAB) Dose: Take 1 or 2 tablet at 3pm prn Starting date: 02/13/2008 Ending date: 03/07/2008 (Discontinued) methylphenidate hcl(RITALIN 5 MG TAB) Dose: Take 1 or 2 tablet at 3pm prn Starting date: 03/07/2008 Ending date: 05/06/2008 (Discontinued) methylphenidate hcl(RITALIN 5 MG TAB) Dose: Take 1 or 2 tablet at 3pm prn Starting date: 05/06/2008 Ending date: 06/03/2008 (Discontinued) methylphenidate hcl(RITALIN 5 MG TAB) Dose: Take 1 or 2 tablet at 3pm prn Starting date: 06/03/2008 Ending date: 06/22/2008 (Discontinued) methylphenidate hcl(RITALIN 5 MG TAB) Dose: Take 1 or 2 tablet at 3pm prn Starting date: 06/22/2008 Ending date: 07/30/2008 (Discontinued) methylphenidate hcl(RITALIN 5 MG TAB) Dose: Take 1 or 2 tablet at 3pm prn Starting date: 07/30/2008 Ending date: 08/23/2008 (Discontinued) methylphenidate hcl(RITALIN 5 MG TAB) Dose: Take 1 or 2 tablet at 3pm prn Starting date: 08/23/2008 Ending date: 09/22/2008 (Discontinued) methylphenidate hcl(RITALIN 5 MG TAB) Dose: Take 1 or 2 tablet at 3pm prn Starting date: 09/22/2008 Ending date: 10/21/2008 (Discontinued) methylphenidate hcl(RITALIN 5 MG TAB) Dose: Take 1 or 2 tablet at 3pm prn Starting date: 10/21/2008 Ending date: 11/18/2008 (Discontinued) methylphenidate hcl(RITALIN 5 MG TAB) Dose: Take 1 or 2 tablet at 3pm prn Starting date: 11/18/2008 Ending date: 12/16/2008 (Discontinued) methylphenidate hcl(RITALIN 5 MG TAB) Dose: Take 1 or 2 tablet at 3pm prn Starting date: 12/16/2008 Ending date: 01/13/2009 (Discontinued) methylphenidate hcl(RITALIN 5 MG TAB) Dose: Take 1 or 2 tablet at 3pm prn Starting date: 01/13/2009 Ending date: 02/14/2009 (Discontinued) methylphenidate hcl(RITALIN 5 MG TAB) Dose: Take 1 or 2 tablet at 3pm prn Starting date: 02/14/2009 Ending date: 03/13/2009 (Discontinued) methylphenidate hcl(RITALIN 5 MG TAB) Dose: Take 1 or 2 tablet at 3pm prn Starting date: 03/13/2009 Ending date: 04/05/2009 (Discontinued) methylphenidate hcl(RITALIN 5 MG TAB) Dose: Take 1 or 2 tablet at 3pm prn Starting date: 04/05/2009 Ending date: 04/14/2009 (Discontinued) Medication marked as long-term Prior RLS Medications (last 20 years) Some values may be hidden. Unless noted otherwise, only the newest values recorded on each date are displayed. RLS Medications HYDROcodone 5 mg - acetaminophen 325 mg tablet (NORCO) Dose: 1-2 tablet ONCE Give 1 tab for moderate pain Give 2 tabs for severe pain Starting date: 07/05/2022 Ending date: 07/05/2022 (Discontinued) morphine 4 mg injection Dose: 4 mg X (PACU ONLY) PRN 2nd Line Therapy for Breakthrough Pain Maximum TOTAL DOSE from ALL orders = 0.15 mg/kg, not to exceed 10 mg May give every 10 minutes as needed Starting date: 05/12/2015 Ending date: 05/12/2015 (Discontinued) Prior Insomnia Medications (last 20 years) Some values may be hidden. Unless noted otherwise, only the newest values recorded on each date are displayed. Insomnia Medications ESCITALOPRAM OXALATE (LEXAPRO ORAL) Dose: Take by mouth. Starting date: Ending date: 03/07/2015 (Discontinued) ESCITALOPRAM OXALATE (LEXAPRO ORAL) Dose: Take 75 mg by mouth. Starting date: Ending date: 11/08/2015 (Discontinued) FLUoxetine (PROZAC) 20 mg capsule Dose: 20 mg DAILY Starting date: 09/24/2013 Ending date: 06/09/2014 (Discontinued) midazolam (PF) injection (VERSED) Dose: Starting date: 07/05/2022 Ending date: 07/06/2022 (Discontinued) PAROXETINE HCL (PAXIL ORAL) Dose: Take by mouth. (Patient not taking as of 02/20/2022 6:09 PM) Starting date: Ending date: 03/12/2022 (Discontinued) PHYSICAL EXAMINATION: Vital Signs: LMP 08/26/2022 (Approximate) IMPRESSION: Esteban (obstructive sleep apnea) (primary encounter diagnosis) Clinical Global Impression of Change ( CGI-C) Compared to the patient's condition at baseline, how much has the patient changed? No change Katie Forde is a 21 year old female with past medical history of migraine, Marfan syndrome, ADHD, depression, anxiety, obesity (BMI 40), hypovitaminosis D presenting with sleep concerns of mild ESTEBAN, recently diagnosed. Sleep disordered breathing symptoms: Snoring, fatigue, daytime napping, may have AM SOTO. Given the patient's history of Marfan syndrome, there is an increased likelihood of airway flexibility perhaps predisposing the patient to sleep disordered breathing. Furthermore, given the risk of cardiac complications with Marfan syndrome and the increased risk of CVA with moderate or severe ESTEBAN, would be advised to diagnose and treat sleep apnea. PLAN: - PAP titration to evaluate for effectiveness of PAP therapy for obstructive sleep apnea. -Insurances care source Medicaid -Discussed, after palpation and will MCM and prescribe CPAP device likely to [facility]. - Discussed with the patient the possible diagnosis, causes, and conditions associated with obstructive sleep apnea. - Avoid driving when drowsy. Recommend that if you are dozing off while driving, that you do not drive until your sleepiness is appropriately treated. -Encouraged healthy lifestyle with adequate sleep ( 7-9 hours per night), diet and exercise. - Results are usually available within 7-10 business days. If you do not hear from us within 1-2 weeks after testing, please contact us directly. - Follow up visit in 2wks post study - virtually. Please schedule this appointment now to ensure your preferred time and location. Karlos Jett MD Staff, [facility] Appt: [phone] Mail: [address] [place] [address] Activity Duration Current session 21 minutes Total time: 21 minutes* *Based only on time spent in the patient's chart documented in this encounter [facility] 11-05-2022 Miscellaneous Notes Spirometry is normal, not a significant bronchodilator response documented in this encounter [facility] 11-05-2022 Note [facility] 11-05-2022 History of Present illness Narrative PULM FUNCTION SMARTBLOCK: Provider: 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 APRN.RUBBER STAMP DIES INSPECTOR Assisting Tech: GIRMA Alfredo Spirometry w/BD: 1 documented in this encounter [facility] 11-04-2022 Note [facility] 11-04-2022 History of Present illness Narrative This note was created using NoteWriter. Subjective Katie Forde is a 21 year old female. 21 year old female with PMH migraines, ADD, depression presents for illness. Acute onset 10 to 14 days ago +cough +sneezing + sore throat +ear pain +nasal congestion Denies CP. Denies SOB. Denies dyspnea. Used DayQuil yesterday Vapes tobacco Endorses that her brother recently tested positive for COVID and she would like to be tested. The history is provided by the patient. No lumber carrier was used. Cough This is a new problem. The current episode started more than 1 week ago. The problem occurs constantly. The problem has been gradually worsening. The cough is Non-productive. There has been no fever. Associated symptoms include chills, ear congestion, ear pain, headaches, rhinorrhea and sore throat. Pertinent negatives include no chest pain, no sweats, no weight loss, no myalgias, no shortness of breath, no wheezing and no eye redness. Treatments tried: dayQuil. She is a smoker. Her past medical history does not include bronchitis, pneumonia, bronchiectasis, COPD, emphysema or asthma. 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 MEDICATIONS topiramate (TOPAMAX) 25 mg tablet^Take 1 tablet by mouth once daily.^Disp: 30 tablet^Rfl: 11 [START ON 11/09/2022] methylphenidate (RITALIN) 20 mg tablet^Take 1 tablet by mouth as needed for up to 30 days. Take at approx. 3-4 pm. Do not start before November 09, 2022.^Disp: 30 tablet^Rfl: 0 [START ON 11/09/2022] amphetamine-dextroamphetamine XR (ADDERALL XR) 30 mg 24 hr capsule^Take 1 capsule by mouth every morning for 30 days. Do not start before November 09, 2022.^Disp: 30 capsule^Rfl: 0 [START ON 01/08/2023] amphetamine-dextroamphetamine XR (ADDERALL XR) 30 mg 24 hr capsule^Take 1 capsule by mouth every morning for 30 days. Do not start before January 08, 2023.^Disp: 30 capsule^Rfl: 0 [START ON 12/09/2022] amphetamine-dextroamphetamine XR (ADDERALL XR) 30 mg 24 hr capsule^Take 1 capsule by mouth every morning for 30 days. Do not start before December 09, 2022.^Disp: 30 capsule^Rfl: 0 [START ON 01/08/2023] methylphenidate (RITALIN) 20 mg tablet^Take 1 tablet by mouth as needed for up to 30 days. Take at approx. 3-4 pm. Do not start before January 08, 2023.^Disp: 30 tablet^Rfl: 0 [START ON 12/09/2022] methylphenidate (RITALIN) 20 mg tablet^Take 1 tablet by mouth as needed for up to 30 days. Take at approx. 3-4 pm. Do not start before December 09, 2022.^Disp: 30 tablet^Rfl: 0 omeprazole (PRILOSEC) 20 mg capsule^Take 1 capsule by mouth once daily.^Disp: 30 capsule^Rfl: 5 PNV No.40-Iron Fum-FA Cmb No.1 (PNV-SELECT) 27-1 mg tab^Take 1 tablet by mouth once daily.^Disp: 30 tablet^Rfl: 12 medroxyPROGESTERone (PROVERA) 10 mg tablet^Take 1 tablet by mouth once daily. for the -10th of each month^Disp: 10 tablet^Rfl: 11 predniSONE (DELTASONE) 10 mg tablet^Take 4 tabs daily for 3 days, then 2 tabs daily for 3 days, then 1 tab daily for 3 days with food.^Disp: 21 tablet^Rfl: 0 amoxicillin-clavulanic acid (AUGMENTIN) 875-125 mg per tablet^Take 1 tablet by mouth twice daily for 5 days.^Disp: 10 tablet^Rfl: 0 ergocalciferol 50,000 unit capsule (VITAMIN D2, DRISDOL)^Take 1 capsule by mouth one time a week.^Disp: 8 capsule^Rfl: 0 FAMILY HISTORY Problem Relation Age of Onset other (Marfan's) Mother None Father other (Marfan's) Brother other (mood issues) Brother Osteoporosis Maternal Grandmother other (Marfan's) Maternal Grandfather None Paternal Grandmother Heart Paternal Grandfather pace maker No Ocular Disease Other Social History Tobacco Use Smoking status: Former Types: Cigarettes Quit date: 2021 Years since quittin.3 Smokeless tobacco: Never Tobacco comments: Pt smoked 3 cigarettes daily x 2 months, quit 2021 Vaping Use Vaping Use: current everyday user Substances: Nicotine, Flavoring Devices: Pre-filled or refillable cartridge Substance Use Topics Alcohol use: Not Currently Comment: occasional Drug use: No Review of Systems Constitutional: Positive for chills. Negative for weight loss. HENT: Positive for congestion, ear pain, rhinorrhea, sinus pressure, sinus pain and sore throat. Eyes: Negative for pain, discharge, redness and itching. Respiratory: Positive for cough. Negative for shortness of breath and wheezing. Cardiovascular: Negative for chest pain, palpitations and leg swelling. Gastrointestinal: Positive for nausea. Negative for abdominal pain, diarrhea and vomiting. Musculoskeletal: Negative for arthralgias, back pain, gait problem and myalgias. Skin: Negative for color change, pallor, rash and wound. Allergic/Immunologic: Negative for environmental allergies, food allergies and immunocompromised state. Neurological: Positive for headaches. Negative for dizziness, facial asymmetry, light-headedness and numbness. Hematological: Negative for adenopathy. Does not bruise/bleed easily. Psychiatric/Behavioral: Negative for agitation and behavioral problems. Objective BP 120/86 Pulse 89 Temp 36.9 C (98.4 F) Resp 21 Wt 131.7 kg (290 lb 6.4 oz) LMP 08/26/2022 (Approximate) SpO2 98% BMI 40.22 kg/m Physical Exam Vitals and nursing note reviewed. Constitutional: General: She is not in acute distress. Appearance: Normal appearance. She is normal weight. She is not ill-appearing, toxic-appearing or diaphoretic. HENT: Head: Normocephalic and atraumatic. Right Ear: Ear canal and external ear normal. Left Ear: Ear canal and external ear normal. Ears: Comments: Left TM erythematous and bulging. Nose: Nose normal. No congestion or rhinorrhea. Mouth/Throat: Mouth: Mucous membranes are moist. Pharynx: No oropharyngeal exudate or posterior oropharyngeal erythema. Eyes: General: Right eye: No discharge. Left eye: No discharge. Extraocular Movements: Extraocular movements intact. Conjunctiva/sclera: Conjunctivae normal. Pupils: Pupils are equal, round, and reactive to light. Cardiovascular: Rate and Rhythm: Normal rate and regular rhythm. Pulses: Normal pulses. Heart sounds: Normal heart sounds. No murmur heard. No friction rub. Pulmonary: Effort: Pulmonary effort is normal. No respiratory distress. Breath sounds: Normal breath sounds. No stridor. No wheezing, rhonchi or rales. Chest: Chest wall: No tenderness. Abdominal: General: Abdomen is flat. There is no distension. Palpations: Abdomen is soft. There is no mass. Tenderness: There is no abdominal tenderness. There is no right CVA tenderness, left CVA tenderness, guarding or rebound. Hernia: No hernia is present. Musculoskeletal: General: No swelling, tenderness, deformity or signs of injury. Normal range of motion. Cervical back: Normal range of motion and neck supple. No rigidity. Right lower leg: No edema. Left lower leg: No edema. Lymphadenopathy: Cervical: No cervical adenopathy. Skin: General: Skin is warm and dry. Capillary Refill: Capillary refill takes less than 2 seconds. Coloration: Skin is not jaundiced or pale. Findings: No bruising, erythema, lesion or rash. Neurological: General: No focal deficit present. Mental Status: She is alert and oriented to person, place, and time. Cranial Nerves: No cranial nerve deficit. Sensory: No sensory deficit. Motor: No weakness. Coordination: Coordination normal. Gait: Gait normal. Psychiatric: Mood and Affect: Mood normal. Behavior: Behavior normal. Thought Content: Thought content normal. Judgment: Judgment normal. Assessment and Plan ASSESSMENT/PLAN: 1. URI, acute - ICD9: 465.9, ICD10: J06.9 (primary diagnosis) - Discussed viral etiology and rationale for treatment. - Alere Strep Test NEGATIVE, no culture pending - Symptomatic treatment with prn analgesia - Supportive care with fluids and rest - The patient may also use OTC cough and cold meds as needed, warm salt water gargles, throat lozenges and/or OTC throat spray as needed, and nasal saline gtts and suction prn. - Follow up in 3-5 days if symptoms persist or sooner if worsening of symptoms - COVID WITH FLUA+B, ROUTINE 2. Acute otitis media, left - ICD9: 382.9, ICD10: H66.92 - Will begin treatment with as per antibiotic as written, see orders - The patient should also be given OTC cough and cold meds as needed, warm salt water gargles, throat lozenges and/or OTC throat spray as needed, and nasal saline gtts and suction prn for the first 5-7 days of treatment. - Supportive care with plenty of fluids, rest, and analgesia prn. - Follow up in 3-5 days if symptoms persist or worsen. Rebeca Foley APRN.CNP documented in this encounter [facility] 10-31-2022 Note HNO ID: [id number] Author: IGNACIO Ariza Service: Radiology Author Type: Optical Fabricator Type: Progress Notes Filed: 10/31/2022 1:31 PM Note Text: Radiology Service Progress Note PATIENT NAME: Katie Forde DATE OF SERVICE: October 31, 2022 TIME: 1:31 PM PATIENT IDENTITY VERIFICATION COMPLETED USING TWO (2) IDENTIFIERS: Name and Date of confirmed by patient verbally. FALL SCREENING: Has the patient had 2 falls in the last year or 1 fall with injury or currently using an Ambulatory Assistive Device (Walker, Cane, Wheelchair, Crutches, etc.)? No PATIENT GENDER DATA: Female. status: : No status: NO. PATIENT RELEVANT IMPLANT DATA REVIEWED: Yes RADIOLOGY DEPARTMENT: CT; Exam(s) Completed: Cardiac PERIPHERAL IV DATA: Site assessment: Clean,Dry and Intact, Site disposition Discontinued SIGNED BY: IGNACIO Ariza October 31, 2022 1:[address] [facility] 10-28-2022 Note [facility] 10-28-2022 Miscellaneous Notes Addended by: DEMI ALFONSO on: 10/28/2022 02:03 PM Modules accepted: Orders documented in this encounter [facility] 10-28-2022 Instructions 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 APRN.CNS - 10/28/2022 1:31 PM EDT Start taking topiramate once daily for headache prevention Avoid use of spray on antiperspirant that is causing shortness of breath. documented in this encounter [facility] 10-28-2022 History of Present illness Narrative SUBJECTIVE: HEPATITIS B(4 of 4 - 4-dose series) due on 07/02/1999 COVID-19 VACCINE(1) Never done HIV SCREENING Never done DTAP,TDAP,TD(7 - Td or Tdap) due on 03/20/2020 MENINGOCOCCAL B: Consider based on risk(2 of 2 - Risk Bexsero 2-dose series) due on 04/09/2022 HPI Katie Forde is a 21 year old female. PMH significant for ACTIVE PROBLEM LIST Marfan's Syndrome Attention Deficit Hyperactivity Disorder (Adhd), Combined Type Subluxation of Lens Outbursts of Anger Depression Depersonalization Disorder (Hcc) Migraine Without Status Migrainosus, Not Intractable Oppositional Defiant Disorder Bmi (Body Mass Index), Pediatric, 85% to Less Than 95% for Age Bmi (Body Mass Index), Pediatric, Greater Than Or Equal to 95% for Age Lab Test Positive for Detection of Covid-19 Virus Anxiety Pain in Right Foot Obesity, Class III, BMI >= 40 Katie Forde is a patient of Dr Smalls, pediatrics. Last seen 05/2022. Presents to establish with primary care, Kate Silva MD She has been followed by specialists. Dr. Karlos Loera sleep disorders, to discuss sleep study results. Gastroenterology, Zuleika Perez PAC, last seen 07/2022 regarding fatty liver. Biopsy completed but not adequate, repeat endorse but declined. She noted fatigue. Vitamin D deficiency noted, repletion endorsed. She was referred to load manager for chronic platelet and white blood cell count elevations. Seen by Dr Burris 07/2022. History of Marfans, seen by Dr Mcallister 09/30/2022. New patient, noted exertional dyspnea and palpitations. Noted history of bilateral dislocated lens with replacements. Last echocardiogram 2016. Follow-up echocardiogram to assess size of ascending aorta and mitral valve. CTA of aorta gated as baseline assessment of ascending aorta measurements. 2-week monitor for possible SVT advised. Follow-up in 3 months. Today reports recurrence of headaches, 2 times per week. Previously was on topiramate for migraines. Would like to resume. Was previously effective. She notes using Aleve [id number] and hemp cream along with sleep helps her headache Seen by gastroenterology. Fatty liver noted. Notes need for weight loss. Notes using elliptical. Plans on joining a gym. She reports shortness of breath persisting for about 1 year. Short of breath with 1 flight of stairs or when spraying deodorant. Stable unchanged from previous. No prior PFTs noted. History of ADD controlled with current medications. No adverse effects noted. Previously prescribed by plc programmer, Dr. Smalls. Review of Systems Respiratory: Positive for shortness of breath. Neurological: Positive for headaches. Objective BP 118/82 Pulse 105 Resp 16 Ht 181 cm (5' 11.25 ) Wt 132 kg (291 lb) LMP 08/26/2022 (Approximate) SpO2 100% BMI 40.30 kg/m Physical Exam Vitals and nursing note reviewed. Constitutional: Appearance: Normal appearance. HENT: Head: Normocephalic and atraumatic. Eyes: Conjunctiva/sclera: Conjunctivae normal. Neck: Thyroid: No thyromegaly. Vascular: Normal carotid pulses. No JVD. Cardiovascular: Rate and Rhythm: Normal rate and regular rhythm. Pulses: Carotid pulses are 2+ on the right side and 2+ on the left side. Radial pulses are 2+ on the right side and 2+ on the left side. Heart sounds: Normal heart sounds. Pulmonary: Effort: Pulmonary effort is normal. Breath sounds: Normal breath sounds. Abdominal: General: Bowel sounds are normal. Palpations: Abdomen is soft. Musculoskeletal: Right lower leg: No edema. Left lower leg: No edema. Skin: General: Skin is warm and dry. Neurological: General: No focal deficit present. Mental Status: She is alert and oriented to person, place, and time. ALLERGIES No Known Allergies Medication omeprazole (PRILOSEC) 20 mg capsule^Take 1 capsule by mouth once daily.^Disp: 30 capsule^Rfl: 5 PNV No.40-Iron Fum-FA Cmb No.1 (PNV-SELECT) 27-1 mg tab^Take 1 tablet by mouth once daily.^Disp: 30 tablet^Rfl: 12 medroxyPROGESTERone (PROVERA) 10 mg tablet^Take 1 tablet by mouth once daily. for the -10th of each month^Disp: 10 tablet^Rfl: 11 topiramate (TOPAMAX) 25 mg tablet^Take 1 tablet by mouth once daily.^Disp: 30 tablet^Rfl: 11 [START ON 11/09/2022] methylphenidate (RITALIN) 20 mg tablet^Take 1 tablet by mouth as needed for up to 30 days. Take at approx. 3-4 pm. Do not start before November 09, 2022.^Disp: 30 tablet^Rfl: 0 [START ON 11/09/2022] amphetamine-dextroamphetamine XR (ADDERALL XR) 30 mg 24 hr capsule^Take 1 capsule by mouth every morning for 30 days. Do not start before November 09, 2022.^Disp: 30 capsule^Rfl: 0 [START ON 01/08/2023] amphetamine-dextroamphetamine XR (ADDERALL XR) 30 mg 24 hr capsule^Take 1 capsule by mouth every morning for 30 days. Do not start before January 08, 2023.^Disp: 30 capsule^Rfl: 0 [START ON 12/09/2022] amphetamine-dextroamphetamine XR (ADDERALL XR) 30 mg 24 hr capsule^Take 1 capsule by mouth every morning for 30 days. Do not start before December 09, 2022.^Disp: 30 capsule^Rfl: 0 [START ON 01/08/2023] methylphenidate (RITALIN) 20 mg tablet^Take 1 tablet by mouth as needed for up to 30 days. Take at approx. 3-4 pm. Do not start before January 08, 2023.^Disp: 30 tablet^Rfl: 0 [START ON 12/09/2022] methylphenidate (RITALIN) 20 mg tablet^Take 1 tablet by mouth as needed for up to 30 days. Take at approx. 3-4 pm. Do not start before December 09, 2022.^Disp: 30 tablet^Rfl: 0 ergocalciferol 50,000 unit capsule (VITAMIN D2, DRISDOL)^Take 1 capsule by mouth one time a week.^Disp: 8 capsule^Rfl: 0 PAST MEDICAL HISTORY Diagnosis Date ADHD (attention deficit hyperactivity disorder) Fatty liver GERD (gastroesophageal reflux disease) Marfan's syndrome VIRAL WARTS NOS 06/25/2008 resolved Social History Tobacco Use Smoking status: Former Types: Cigarettes Quit date: 2021 Years since quittin.3 Smokeless tobacco: Never Tobacco comments: Pt smoked 3 cigarettes daily x 2 months, quit 2021 Vaping Use Vaping Use: current everyday user Substances: Nicotine, Flavoring Devices: Pre-filled or refillable cartridge Substance Use Topics Alcohol use: Not Currently Comment: occasional Drug use: No ASSESSMENT/PLAN: 1. Migraine without status migrainosus, not intractable, unspecified migraine type - ICD9: 346.90, ICD10: G43.909 (primary diagnosis) We will resume topiramate 25 mg daily. 2. Encounter for immunization - ICD9: V03.89, ICD10: Z23 - PFIZER-BIONTECH COVID-19 BIVALENT VACCINE, AGE 12+ YR - TDAP VACCINE, AGE 7+ YR (ADACEL, BOOSTRIX) - MENINGOCOCCAL B VACCINE (BEXSERO) - HEP B VACCINE, 3-DOSE, AGE 20+ YR (ENGERIX-B, RECOMBIVAX HB) 3. Screening for HIV (human immunodeficiency virus) - ICD9: V73.89, ICD10: Z11.4 - HIV 1 2 COMBO(AG/AB),WITH REFLEX TO DIFFERENTIATION 4. Attention deficit hyperactivity disorder (ADHD), combined type - ICD9: 314.01, ICD10: F90.2 History of treatment for ADD per plc programmer, continue unchanged for now. - METHYLPHENIDATE 20 MG TABLET - DEXTROAMPHETAMINE-AMPHETAMINE ER 30 MG 24HR CAPSULE,EXTEND RELEASE - DEXTROAMPHETAMINE-AMPHETAMINE ER 30 MG 24HR CAPSULE,EXTEND RELEASE - DEXTROAMPHETAMINE-AMPHETAMINE ER 30 MG 24HR CAPSULE,EXTEND RELEASE - METHYLPHENIDATE 20 MG TABLET - METHYLPHENIDATE 20 MG TABLET 5. SOBOE (shortness of breath on exertion) - ICD9: 786.05, ICD10: R06.02 She reports shortness of breath on exertion for about 1 year unchanged. Notes that spray antiperspirant seems to be a trigger. Endorse no longer using this. PFTs at her earliest convenience - SPIROMETRY WITH DILATOR IF OBSTRUCTED 6. Obesity, Class III, BMI >= 40 - ICD9: 278.01, ICD10: E66.01 Endorse plant-based diet such as Mediterranean diet, portion control, and routine exercise such as walking or going to the gym. 3 mo follow up 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 APRN.RUBBER STAMP DIES INSPECTOR 6 mo follow up Kate Silva MD - establish 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 APRN.CNS Medical Decision Making: Problems: Moderate: 2+ stable chronic illnesses Risk: Moderate: Drug management Medical Decision Making Level: 4 - Moderate documented in this encounter [facility] 10-12-2022 Note [facility] 10-12-2022 History of Present illness Narrative Sleep Study Check-In Documentation Date: October 12, 2022 Name: Katie Forde Patient was accompanied by Significant other. Location: [place] Latex allergy: No Tape allergy: Yes Current medications were reviewed with the patient:Yes Sleep aid taken by patient for the sleep study: [place] of sleep aid: Not Applicable Procedure was explained to the patient and all questions were answered. PAP treatment discussed and shown to patient: Yes Knowledge Program (KP): KP was not completed in [facility] by patient and accepted Study type: Polysomnogram Adverse Event: No (If yes create a new abstract) Comments: Patient was advised to follow up with their ordering provider regarding test results Selene De León documented in this encounter [facility] 10-10-2022 Miscellaneous Notes SPECIFIC NOTES (if applicable): GENERAL INFORMATION - The listed prescriptions have been signed. If applicable, please notify the patient/family. - Unless noted in the intake documentation, I assume the medications are being used as directed; the patient is doing well; there are no side effects; and there are no undocumented medications or allergies. - This note was created using a speech to text program. There may be some incorrect words, spellings, and punctuation that were missed on review. Antonio Smalls M.D. Has appointment with Dr. Arreguin 10/25/2022. Sp Franco RN Last WCC: greater than one year ago Last ADHD / Med Check visit: 03/12/22 ([employer] message sent that patient overdue for med check) Verify RX Benefits Completed Last medication refill date: 09/10/22 Requesting 30 day supply Retail pharmacy updated: Completed Patient aware RX will be sent to pharmacy. No need to notify patient. Immunizations due: HEPATITIS B(4 of 4 - 4-dose series) due on 07/02/1999 COVID-19 VACCINE(1) Never done HIV SCREENING Never done DTAP,TDAP,TD(7 - Td or Tdap) due on 03/20/2020 MENINGOCOCCAL B: Consider based on risk(2 of 2 - Risk Bexsero 2-dose series) due on 04/09/2022 Eden Mcgee RN documented in this encounter [facility] 10-09-2022 Miscellaneous Notes Patient called in stating that she misplaced her vitamin d bottle. She wanted to know if she had any refills left on script and why the quantity was so low. 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 documented in this encounter [facility] 10-09-2022 Miscellaneous Notes Patient phones requesting refills as follows: Requested Prescriptions Pending Prescriptions Disp Refills omeprazole (PRILOSEC) 20 mg capsule 30 capsule 5 Sig: Take 1 capsule by mouth once daily. Kierra Mahmood CMA documented in this encounter [facility] 09-30-2022 Note [facility] 09-30-2022 Note [facility] 09-30-2022 Note [facility] 09-30-2022 History of Present illness Narrative Images from the original note were not included. Santi Mcallister MD Interventional Cardiology [facility] [id number] [place], [place] [address] [phone] Chief Complaint Patient presents with: New Patient Chest Pain Marfans HISTORY OF PRESENT ILLNESS: Ms. Forde is a 21 year old female seen in my office today for assessment and management patient had established history of Marfan syndrome with history of bilateral dislocated lens with replacement Last echocardiogram 2016 Patient is complaining of exertional dyspnea and palpitation Sudden onset of racing heartbeat with sudden termination suggestive of supraventricular tachycardia Cardiac Risk Factors none 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 EYE SURGERY HX 05/02/2015 detached retina EYE SURGERY HX 08/19/2018 right sided secondary lens implant LIVER BIOPSY 07/05/2022 PAST SURGICAL HISTORY OF sherwin eyes PAST SURGICAL HISTORY OF right leg broken-surgery FAMILY HISTORY Problem Relation Age of Onset other (Marfan's) Mother None Father other (Marfan's) Brother other (mood issues) Brother Osteoporosis Maternal Grandmother other (Marfan's) Maternal Grandfather None Paternal Grandmother Heart Paternal Grandfather pace maker No Ocular Disease Other Social History Tobacco Use Smoking status: Former Types: Cigarettes Quit date: 2021 Years since quittin.2 Smokeless tobacco: Never Tobacco comments: Pt smoked 3 cigarettes daily x 2 months, quit 2021 Vaping Use Vaping Use: current everyday user Substances: Nicotine, Flavoring Devices: Pre-filled or refillable cartridge Substance Use Topics Alcohol use: Not Currently Comment: occasional Drug use: No ALLERGIES No Known Allergies Medications: Current Outpatient Medications Medication Sig Dispense Refill methylphenidate (RITALIN) 20 mg tablet Take 1 tablet by mouth as needed for up to 30 days. Take at approx. 3-4 pm. 30 tablet 0 amphetamine-dextroamphetamine XR (ADDERALL XR) 30 mg 24 hr capsule Take 1 capsule by mouth every morning for 30 days. 30 capsule 0 ergocalciferol 50,000 unit capsule (VITAMIN D2, DRISDOL) Take 1 capsule by mouth one time a week. 8 capsule 0 omeprazole (PRILOSEC) 20 mg capsule Take 1 capsule by mouth once daily. 30 capsule 2 PNV No.40-Iron Fum-FA Cmb No.1 (PNV-SELECT) 27-1 mg tab Take 1 tablet by mouth once daily. 30 tablet 12 medroxyPROGESTERone (PROVERA) 10 mg tablet Take 1 tablet by mouth once daily. for the - of each month 10 tablet 11 Current Facility-Administered Medications Medication Dose Route Frequency Provider Last Rate Last Admin perflutren lipid microspheres 1.3 mL in NaCl (PF) 0.9% 10 mL injection (DEFINITY) INTRAVENOUS DIRECTED PRN Santi Mcallister MD sodium chloride 0.9 % (flush) 10 mL (BD POSIFLUSH) 10 mL INTRAVENOUS DIRECTED PRN Santi Mcallister MD Review of Systems Constitutional: Negative for chills, diaphoresis, fever, malaise/fatigue and weight loss. HENT: Negative for congestion, ear discharge, ear pain, hearing loss, nosebleeds, sinus pain, sore throat and tinnitus. Eyes: Negative for blurred vision, double vision, photophobia, pain, discharge and redness. Respiratory: Negative for cough, hemoptysis, sputum production, shortness of breath, wheezing and stridor. Cardiovascular: Positive for palpitations. Negative for chest pain, orthopnea, claudication, leg swelling and PND. Gastrointestinal: Negative for abdominal pain, blood in stool, constipation, diarrhea, heartburn, melena, nausea and vomiting. Genitourinary: Negative for dysuria, flank pain, frequency, hematuria and urgency. Musculoskeletal: Negative for back pain, falls, joint pain, myalgias and neck pain. Skin: Negative for itching and rash. Neurological: Negative for dizziness, tingling, tremors, sensory change, speech change, focal weakness, seizures, loss of consciousness, weakness and headaches. Endo/Heme/Allergies: Negative for environmental allergies and polydipsia. Does not bruise/bleed easily. Psychiatric/Behavioral: Negative for depression, hallucinations, memory loss, substance abuse and suicidal ideas. The patient is not nervous/anxious and does not have insomnia. Physical Examination: Vitals:BP 110/80 Pulse 87 Ht 5' 11.496 (1.82m) Wt 292 lb (132.5kg) SpO2 99% LMP 08/26/2022 BMI 40.16 kg/(m^2). BP w/Orthostatic Vitals Date and Time Orthostatic BP Orthostatic Pulse BP Pulse BP Position BP Site BP Cuff Size 09/30/22 1021 -- -- 110/80 87 -- -- -- Last 2 Encounter Wt Readings: Date: Wt: 09/30/2022 132.5 kg (292 lb) 09/06/2022 131.5 kg (290 lb) Physical Exam Constitutional: General: She is not in acute distress. Appearance: She is not diaphoretic. HENT: Head: Normocephalic and atraumatic. Right Ear: External ear normal. Left Ear: External ear normal. Nose: Nose normal. Mouth/Throat: Pharynx: Oropharynx is clear. Eyes: General: Right eye: No discharge. Left eye: No discharge. Conjunctiva/sclera: Conjunctivae normal. Pupils: Pupils are equal, round, and reactive to light. Cardiovascular: Rate and Rhythm: Normal rate and regular rhythm. Heart sounds: Normal heart sounds, S1 normal and S2 normal. No murmur heard. No friction rub. No gallop. No S3 or S4 sounds. Pulmonary: Effort: Pulmonary effort is normal. No respiratory distress. Breath sounds: Normal breath sounds. No wheezing or rales. Chest: Chest wall: No tenderness. Abdominal: General: Abdomen is flat. Palpations: Abdomen is soft. Musculoskeletal: General: Normal range of motion. Cervical back: Normal range of motion and neck supple. Skin: General: Skin is warm and dry. Neurological: Mental Status: She is alert and oriented to person, place, and time. Pertinent Labs: CBC: Hemoglobin (g/dL) Date Value 08/07/2022 14.4 08/07/2021 14.3 Hematocrit (%) Date Value 08/07/2022 43.2 08/07/2021 42.9 WBC (k/uL) Date Value 08/07/2022 18.00 08/07/2021 11.15 Platelet Count (k/uL) Date Value 08/07/2022 563 08/07/2021 568 BMP: Glucose (mg/dL) Date Value 09/11/2021 100 08/07/2021 115 Potassium (mmol/L) Date Value 09/11/2021 4.0 08/07/2021 4.0 Sodium (mmol/L) Date Value 09/11/2021 139 08/07/2021 140 Chloride (mmol/L) Date Value 09/11/2021 102 08/07/2021 104 CO2 (mmol/L) Date Value 09/11/2021 23 08/07/2021 26 Creatinine (mg/dL) Date Value 09/11/2021 0.75 08/07/2021 0.78 BUN (mg/dL) Date Value 09/11/2021 8 08/07/2021 6 Anion Gap (mmol/L) Date Value 09/11/2021 14 08/07/2021 10 Calcium (mg/dL) Date Value 08/07/2021 9.1 Calcium, Total (mg/dL) Date Value 09/11/2021 9.6 INR: Lipid Profile: Cholesterol, Total Date Value Ref Range Status 06/11/2022 203 (H) <200 mg/dL Final Comment: <200 mg/dL, Desirable 200-239 mg/dL, Borderline high >239 mg/dL, High HDL Cholesterol Date Value Ref Range Status 06/11/2022 38 (L) >39 mg/dL Final Comment: 40-59 mg/dL, Acceptable >59 mg/dL, High: Negative risk factor for coronary heart disease <40 mg/dL, Low: Positive risk factor for coronary heart disease LDL Cholesterol Date Value Ref Range Status 06/11/2022 144 (H) <100 mg/dL Final Comment: <100 mg/dL, Optimal 100-129 mg/dL, Near optimal/above optimal 130-159 mg/dL, Borderline high 160-189 mg/dL, High >189 mg/dL, Very high Secondary prevention optimal LDL Cholesterol levels are recommended to be < 70 mg/dL Triglyceride Date Value Ref Range Status 06/11/2022 106 <150 mg/dL Final Comment: <150 mg/dL, Normal 150-199 mg/dL, Borderline high 200-499 mg/dL, High >499 mg/dL, Very high Hemoglobin A1C: No results found for: HGBA1C TSH: No results found for: TSHREFL Prior Cardiac Testing none Assessment and Plan: 21 years old female patient with Marfan syndrome Marfan syndrome No clear evidence of cardiac involvement although we need an echocardiography to assess the size of the ascending aorta and assess the mitral valve Schedule for CTA of her aorta gated as a baseline assessment of her ascending aorta measurements Rule out any aneurysmal dilatation 2. Palpitation Possibly supraventricular tachycardia We will do 2 weeks monitor Follow-up in 3 months Follow up plannin months Electronically signed by Santi Mcallister MD on September 30, 2022, 10:43 AM The above note was partially created using a dictation recognition software. A reasonable attempt has been made to correct any errors. EVENT MONITOR DISPOSABLE PATCH INSTRUCTIONS Patient Name: Katie Forde [facility] Number: [id number] Skin prepped and cleansed with alcohol Patch secured to prepped area Monitor Activated Serial #: [id number] Patient Instructed: Prescribed order timeframe Bathing guidelines Usage of event button and diary documentation Return of monitor at the end of prescribed order Call with problems [phone] or [phone]. [phone] Patient expresses a good understanding of instructions Laura Brenner RN documented in this encounter [facility] 09-10-2022 Miscellaneous Notes SPECIFIC NOTES (if applicable): GENERAL INFORMATION - The listed prescriptions have been signed. If applicable, please notify the patient/family. - Unless noted in the intake documentation, I assume the medications are being used as directed; the patient is doing well; there are no side effects; and there are no undocumented medications or allergies. - This note was created using a speech to text program. There may be some incorrect words, spellings, and punctuation that were missed on review. Antonio Smalls M.D. Last WCC: greater than one year ago Last ADHD / Med Check visit: 03/12/2022 Verify RX Benefits Completed Last medication refill date: 08/14/2022 Requesting 30 day supply Retail pharmacy updated: Completed Patient aware RX will be sent to pharmacy. No need to notify patient. Immunizations due: HEPATITIS B(4 of 4 - 4-dose series) due on 07/02/1999 COVID-19 VACCINE(1) Never done HIV SCREENING Never done DTAP,TDAP,TD(7 - Td or Tdap) due on 03/20/2020 MENINGOCOCCAL B: Consider based on risk(2 of 2 - Risk Bexsero 2-dose series) due on 04/09/2022 Jo-Ann Carreon LPN documented in this encounter [facility] 09-10-2022 Miscellaneous Notes The following approved medication requests have been transmitted electronically. Requested Prescriptions Signed Prescriptions Disp Refills methylphenidate (RITALIN) 20 mg tablet 30 tablet 0 Sig: Take 1 tablet by mouth as needed for up to 30 days. Take at approx. 3-4 pm. Authorizing Provider: ANTONIO SMALLS MD Last WCC: greater than one year ago Last ADHD / Med Check visit: 03/12/2022 Verify RX Benefits Completed Last medication refill date: 08/06/2022 Requesting 30 day supply Retail pharmacy updated: Completed Patient aware RX will be sent to pharmacy. No need to notify patient. Immunizations due: HEPATITIS B(4 of 4 - 4-dose series) due on 07/02/1999 COVID-19 VACCINE(1) Never done HIV SCREENING Never done DTAP,TDAP,TD(7 - Td or Tdap) due on 03/20/2020 MENINGOCOCCAL B: Consider based on risk(2 of 2 - Risk Bexsero 2-dose series) due on 04/09/2022 Jo-Ann Carreon LPN documented in this encounter [facility] 09-09-2022 Miscellaneous Notes Last Provera rx was sent to [facility] in [place] on 03/29/22 with 11 refills. [employer] message sent. Kristin Newby RN documented in this encounter [facility] 09-06-2022 Note [facility] 09-06-2022 Instructions Karlos Jett MD - 09/06/2022 1:20 PM EST ESTEBAN Evaluation: - We suspect you may have sleep apnea. - Sleep apnea is a serious sleep disorder that occurs when a person's breathing is interrupted during sleep. People with untreated sleep apnea stop breathing repeatedly during their sleep, sometimes hundreds of times during the night. - The most common type of sleep apnea is obstructive sleep apnea. - If left untreated, obstructive sleep apnea can result in a number of health problems including hypertension, stroke, arrhythmias, cardiomyopathy (enlargement of the muscle tissue of the heart), heart failure, diabetes, obesity, and heart attacks. - Treatment options for obstructive sleep apnea may include positive airway pressure (PAP) therapy, oral appliance, hypoglossal nerve stimulator, nose/throat surgery, weight loss, side sleeping, or avoidance of medications or substances that can relax the airway muscles (alcohol, benzodiazepines, and opioids). - We have ordered a Polysomnogram (PSG) to evaluate for sleep apnea. - This test should be scheduled at your earliest convenience. - Avoid driving if drowsy. We recommend that if you are dozing off while driving, that you do not drive until your sleepiness is appropriately treated. - We encourage a healthy lifestyle with adequate sleep (7-9 hours per night), diet and exercise. - Please schedule a follow up clinic visit now for 2-3 weeks after sleep study is done to review results. Please schedule your virtual visit or clinic visit with Karlos Jett MD or my associates, who will be able to explain the results in detail and any treatments options. - Call [phone] to schedule your sleep study and follow up appointment if it is not scheduled after your visit today with one of our schedulers. Sleep Nurse Practitioners: Roberta Vasquez [facility] [address] [place] [address] [facility] [address] [place] [address] [facility] [address] [place] [address] Friday, Friday, Friday Appt: [phone] Rose Olivares, PhD, [facility] [address] [place] [address] [facility] [address] [place] [address] Mondays, Tuesdays & Friday Appt: [phone] Nohemy Berry, [facility] [address] [place] [address] [facility] [address] [place] [address] [facility] [address] [place] [address] Friday, Friday, Friday Appt: [phone] Ondina Kurtz, [facility] [address] [place] [address] [facility] [address] [place] [address] [facility] [address] [place] [address] Friday, , Friday Appt: [phone] Anna Meadows, [facility] [address] [facility] [place] [address] [facility] [address] [place] [address] Friday, Friday, Friday, Friday Appt: [phone] Cherry Kay, [facility] [address] [place] [address] [facility] [address] [place] [address] Friday, Friday, Friday, Friday Appt: [phone] Any appointments can be scheduled through the central scheduling system for the [facility] [place] at [phone]. [facility] now offers direct scheduling for patients to schedule appointments. Virtual visits are also available. If not covered by your insurance, there is a 35% discount. Please contact your insurance to determine coverage. Call the office at [phone], option #5 for questions. May use Message My Doc through My Chart for questions. May use My Chart Refills for refill requests. [facility] website: [email or web address] documented in this encounter [facility] 09-06-2022 History of Present illness Narrative Images from the original note were not included. [facility] New Patient Evaluation PATIENT NAME: Katie Forde DATE OF SERVICE: September 06, 2022 CONSULTING PROVIDER: Antonio Smalls [address] [facility] [address] REASON FOR CONSULT: Antonio Smalls sends the patient for an opinion about suspected SDB. My findings and recommendations will be transmitted electronically via shared medical record to the consulting provider. HPI: Katie Forde is a 21 year old female with past medical history of migraine, Marfan syndrome, ADHD, depression, anxiety, obesity (BMI 40), hypovitaminosis D presenting with sleep concerns of suspected sleep disordered breathing. Sleep disordered breathing symptoms: Snoring, fatigue, daytime napping, may have AM SOTO Given the patient's history of Marfan syndrome, there is an increased likelihood of airway flexibility perhaps predisposing the patient to sleep disordered breathing. Furthermore, given the risk of cardiac complications with Marfan syndrome and the increased risk of CVA with moderate or severe ESTEBAN, would be advised to diagnose and treat any sleep apnea. Comorbid: ADHD: Managed with Adderall XR 30 mg, methylphenidate 20 mg SLEEP-WAKE SCHEDULE Bedtime: 00- 1AM. She does not have a hard time falling asleep. Wake time: 710 AM, with an alarm. - wakes unrefreshed After falling asleep: she does not usually wake up during the night. On weekends, she maintains the same sleep schedule. Average total sleep time (in a 24 hour period): 7 hours. SLEEP-RELATED DETAILS Preferred sleep position: side or back Breathing disturbances and other behaviors during sleep: snoring and stopping breathing during sleep. Bruxism: Yes GERD or aspiration: Yes- but does not keep her up at night Waking up with heart pounding or racing: No- but does report palpitations during the day Anxiety or rumination: No She does not report having an urge to move the legs in the evening (when resting) that is accompanied or caused by uncomfortable and/or unpleasant sensations in the legs. She has not been told that she has leg kicking during sleep. She denies any history of parasomnias. Daytime sleepiness is not a problem. 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 She does have difficulty with memory or concentration. She denies falling asleep or dozing off when driving. She does take naps. Frequency: 01/03, Duration: 2-3h. Naps are sometimes refreshing. She does drink 1 caffeinated beverages per day - tea - Does VAPE There has not been a recent change in weight. Last Wt 09/06/22 131.5 kg (290 lb) 09/05/22 131.4 kg (289 lb 9.6 oz) 08/22/22 130.2 kg (287 lb) 08/07/22 132 kg (291 lb) 07/17/22 131.1 kg (289 lb) 07/09/22 130 kg (286 lb 11.2 oz) 06/11/22 130.8 kg (288 lb 6.4 oz) 05/30/22 131.1 kg (289 lb) 05/14/22 132.5 kg (292 lb) 05/07/22 132 kg (291 lb) Patient Questionnaires Sleep Scores Sleep Questions 09/04/2022 Reason for visit: Sleep apnea, Excessive daytime sleepiness [place] Sleepiness Scale 09/04/2022 Score 9 (No daytime sleepiness) PROMIS CAT Sleep Disturbance 09/04/2022 PROMIS Sleep Disturbance T-Score 49 (within normal limits) PAST TREATMENTS: None PRIOR SLEEP STUDIES: None OTHER RELEVANT LABS AND STUDIES: 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 EYE SURGERY HX 05/02/2015 detached retina EYE SURGERY HX 08/19/2018 right sided secondary lens implant LIVER BIOPSY 07/05/2022 PAST SURGICAL HISTORY OF sherwin eyes PAST SURGICAL HISTORY OF right leg broken-surgery ACTIVE PROBLEM LIST Marfan's Syndrome Attention Deficit Hyperactivity Disorder (Adhd), Combined Type Subluxation of Lens Outbursts of Anger Depression Depersonalization Disorder (Hcc) Migraine Without Status Migrainosus, Not Intractable Oppositional Defiant Disorder Bmi (Body Mass Index), Pediatric, 85% to Less Than 95% for Age Bmi (Body Mass Index), Pediatric, Greater Than Or Equal to 95% for Age Lab Test Positive for Detection of Covid-19 Virus Anxiety Pain in Right Foot Allergies As of Date: 09/06/2022 (No Known Allergies) Fully Assessed 09/05/2022 CURRENT MEDICATIONS: amphetamine-dextroamphetamine XR (ADDERALL XR) 30 mg 24 hr capsule Take 1 capsule by mouth every morning for 30 days. ergocalciferol 50,000 unit capsule (VITAMIN D2, DRISDOL) Take 1 capsule by mouth one time a week. PNV No.40-Iron Fum-FA Cmb No.1 (PNV-SELECT) 27-1 mg tab Take 1 tablet by mouth once daily. medroxyPROGESTERone (PROVERA) 10 mg tablet Take 1 tablet by mouth once daily. for the -10th of each month methylphenidate (RITALIN) 20 mg tablet Take 1 tablet by mouth as needed for up to 30 days. Take at approx. 3-4 pm. omeprazole (PRILOSEC) 20 mg capsule Take 1 capsule by mouth once daily. Prior Hypersomnia/Narcolepsy Medications (20 years) Some values may be hidden. Unless noted otherwise, only the newest values recorded on each date are displayed. Also, latest columns from 09/07/2012 - 09/07/2022 are shown. Hypersomnia/Narcolepsy Medications Amphetamine-Dextroamphetamine (ADDERALL XR) 25 mg ORAL 24 hr capsule Dose: 1 capsule EVERY MORNING Starting date: 06/05/2011 Ending date: 06/27/2011 (Discontinued) amphetamine-dextroamphetamine (ADDERALL XR) 30 mg ORAL 24 hr capsule Dose: 30 mg EVERY MORNING Starting date: 06/27/2011 Ending date: 07/29/2011 (Discontinued) amphetamine-dextroamphetamine (ADDERALL XR) 30 mg ORAL 24 hr capsule Dose: 30 mg EVERY MORNING Starting date: 07/29/2011 Ending date: 08/23/2011 (Discontinued) amphetamine-dextroamphetamine (ADDERALL XR) 30 mg ORAL 24 hr capsule Dose: 30 mg EVERY MORNING Starting date: 08/23/2011 Ending date: 09/17/2011 (Discontinued) amphetamine-dextroamphetamine (ADDERALL XR) 30 mg ORAL 24 hr capsule Dose: 30 mg EVERY MORNING Starting date: 09/17/2011 Ending date: 10/17/2011 (Discontinued) amphetamine-dextroamphetamine (ADDERALL XR) 30 mg ORAL 24 hr capsule Dose: 30 mg EVERY MORNING Starting date: 10/17/2011 Ending date: 11/16/2011 (Discontinued) amphetamine-dextroamphetamine (ADDERALL XR) 30 mg 24 hr capsule Dose: 30 mg EVERY MORNING Starting date: 11/16/2011 Ending date: 12/16/2011 (Discontinued) amphetamine-dextroamphetamine (ADDERALL XR) 30 mg 24 hr capsule Dose: 30 mg EVERY MORNING Starting date: 12/16/2011 Ending date: 01/13/2012 (Discontinued) amphetamine-dextroamphetamine (ADDERALL XR) 30 mg 24 hr capsule Dose: 30 mg EVERY MORNING Starting date: 01/13/2012 Ending date: 02/10/2012 (Discontinued) amphetamine-dextroamphetamine (ADDERALL XR) 30 mg 24 hr capsule Dose: 30 mg EVERY MORNING Starting date: 02/10/2012 Ending date: 03/11/2012 (Discontinued) amphetamine-dextroamphetamine (ADDERALL XR) 30 mg 24 hr capsule Dose: 30 mg EVERY MORNING Starting date: 03/11/2012 Ending date: 04/08/2012 (Discontinued) amphetamine-dextroamphetamine (ADDERALL XR) 30 mg 24 hr capsule Dose: 30 mg EVERY MORNING Starting date: 04/08/2012 Ending date: 05/07/2012 (Discontinued) amphetamine-dextroamphetamine (ADDERALL XR) 30 mg 24 hr capsule Dose: 30 mg EVERY MORNING Starting date: 05/07/2012 Ending date: 06/04/2012 (Discontinued) amphetamine-dextroamphetamine (ADDERALL XR) 30 mg 24 hr capsule Dose: 30 mg EVERY MORNING Starting date: 06/04/2012 Ending date: 07/03/2012 (Discontinued) amphetamine-dextroamphetamine (ADDERALL XR) 30 mg 24 hr capsule Dose: 30 mg EVERY MORNING Starting date: 07/03/2012 Ending date: 07/31/2012 (Discontinued) amphetamine-dextroamphetamine (ADDERALL XR) 30 mg 24 hr capsule Dose: 30 mg EVERY MORNING Starting date: 07/31/2012 Ending date: 08/28/2012 (Discontinued) amphetamine-dextroamphetamine (ADDERALL XR) 30 mg 24 hr capsule Dose: 30 mg EVERY MORNING Starting date: 08/28/2012 Ending date: 09/26/2012 (Discontinued) amphetamine-dextroamphetamine (ADDERALL XR) 30 mg 24 hr capsule Dose: 30 mg EVERY MORNING Starting date: 09/26/2012 Ending date: 10/24/2012 (Discontinued) amphetamine-dextroamphetamine (ADDERALL XR) 30 mg 24 hr capsule Dose: 30 mg EVERY MORNING Starting date: 10/24/2012 Ending date: 11/21/2012 (Discontinued) amphetamine-dextroamphetamine (ADDERALL XR) 30 mg 24 hr capsule Dose: 30 mg EVERY MORNING Starting date: 11/21/2012 Ending date: 12/22/2012 (Discontinued) dextroamphetamine-amphetamine (ADDERALL XR) 30 mg 24 hr capsule Dose: 30 mg EVERY MORNING Starting date: 12/22/2012 Ending date: 01/19/2013 (Discontinued) dextroamphetamine-amphetamine (ADDERALL XR) 30 mg 24 hr capsule Dose: 30 mg EVERY MORNING Starting date: 01/19/2013 Ending date: 02/18/2013 (Discontinued) dextroamphetamine-amphetamine (ADDERALL XR) 30 mg 24 hr capsule Dose: 30 mg EVERY MORNING Starting date: 02/18/2013 Ending date: 03/22/2013 (Discontinued) dextroamphetamine-amphetamine (ADDERALL XR) 30 mg 24 hr capsule Dose: 30 mg EVERY MORNING Starting date: 03/22/2013 Ending date: 04/19/2013 (Discontinued) dextroamphetamine-amphetamine (ADDERALL XR) 30 mg 24 hr capsule Dose: 30 mg EVERY MORNING Starting date: 04/19/2013 Ending date: 05/18/2013 (Discontinued) dextroamphetamine-amphetamine (ADDERALL XR) 30 mg 24 hr capsule Dose: 30 mg EVERY MORNING Starting date: 05/18/2013 Ending date: 06/15/2013 (Discontinued) dextroamphetamine-amphetamine (ADDERALL XR) 30 mg 24 hr capsule Dose: 30 mg EVERY MORNING Starting date: 06/15/2013 Ending date: 07/14/2013 (Discontinued) dextroamphetamine-amphetamine (ADDERALL XR) 30 mg 24 hr capsule Dose: 30 mg EVERY MORNING Starting date: 07/14/2013 Ending date: 08/12/2013 (Discontinued) dextroamphetamine-amphetamine (ADDERALL XR) 30 mg 24 hr capsule Dose: 30 mg EVERY MORNING Starting date: 08/12/2013 Ending date: 09/07/2013 (Discontinued) dextroamphetamine-amphetamine (ADDERALL XR) 30 mg 24 hr capsule Dose: 30 mg EVERY MORNING Starting date: 09/07/2013 Ending date: 10/06/2013 (Discontinued) dextroamphetamine-amphetamine (ADDERALL XR) 30 mg 24 hr capsule Dose: 30 mg EVERY MORNING Starting date: 10/06/2013 Ending date: 11/03/2013 (Discontinued) dextroamphetamine-amphetamine (ADDERALL XR) 30 mg 24 hr capsule Dose: 30 mg EVERY MORNING Starting date: 11/03/2013 Ending date: 12/02/2013 (Discontinued) dextroamphetamine-amphetamine (ADDERALL XR) 30 mg 24 hr capsule Dose: 30 mg EVERY MORNING Starting date: 12/02/2013 Ending date: 12/29/2013 (Discontinued) dextroamphetamine-amphetamine (ADDERALL XR) 30 mg 24 hr capsule Dose: 30 mg EVERY MORNING Starting date: 12/29/2013 Ending date: 01/28/2014 (Discontinued) dextroamphetamine-amphetamine (ADDERALL XR) 30 mg 24 hr capsule Dose: 30 mg EVERY MORNING Starting date: 01/28/2014 Ending date: 03/01/2014 (Discontinued) dextroamphetamine-amphetamine (ADDERALL XR) 30 mg 24 hr capsule Dose: 30 mg EVERY MORNING Starting date: 03/01/2014 Ending date: 03/28/2014 (Discontinued) dextroamphetamine-amphetamine (ADDERALL XR) 30 mg 24 hr capsule Dose: 30 mg EVERY MORNING Starting date: 03/28/2014 Ending date: 04/22/2014 (Discontinued) dextroamphetamine-amphetamine (ADDERALL XR) 30 mg 24 hr capsule Dose: 30 mg EVERY MORNING Starting date: 04/22/2014 Ending date: 06/09/2014 (Discontinued) dextroamphetamine-amphetamine (ADDERALL XR) 30 mg 24 hr capsule Dose: 30 mg EVERY MORNING Starting date: 04/22/2014 Ending date: 04/22/2014 (Discontinued) dextroamphetamine-amphetamine (ADDERALL XR) 30 mg 24 hr capsule Dose: 30 mg EVERY MORNING Starting date: 04/22/2014 Ending date: 04/22/2014 (Discontinued) dextroamphetamine-amphetamine (ADDERALL XR) 30 mg 24 hr capsule Dose: 30 mg EVERY MORNING Starting date: 06/22/2014 Ending date: 06/09/2014 (Discontinued) dextroamphetamine-amphetamine (ADDERALL XR) 30 mg 24 hr capsule Dose: 30 mg EVERY MORNING Starting date: 05/23/2014 Ending date: 07/21/2014 (Discontinued) dextroamphetamine-amphetamine (ADDERALL XR) 30 mg 24 hr capsule Dose: 30 mg EVERY MORNING Starting date: 07/21/2014 Ending date: 10/18/2014 (Discontinued) dextroamphetamine-amphetamine (ADDERALL XR) 30 mg 24 hr capsule Dose: 30 mg EVERY MORNING Starting date: 08/22/2014 Ending date: 10/18/2014 (Discontinued) dextroamphetamine-amphetamine (ADDERALL XR) 30 mg 24 hr capsule Dose: 30 mg EVERY MORNING Starting date: 09/19/2014 Ending date: 10/18/2014 (Discontinued) dextroamphetamine-amphetamine (ADDERALL XR) 30 mg 24 hr capsule Dose: 30 mg EVERY MORNING Starting date: 10/18/2014 Ending date: 11/14/2014 (Discontinued) dextroamphetamine-amphetamine (ADDERALL XR) 30 mg 24 hr capsule Dose: 30 mg EVERY MORNING Starting date: 11/14/2014 Ending date: 02/16/2015 (Discontinued) dextroamphetamine-amphetamine (ADDERALL XR) 30 mg 24 hr capsule Dose: 30 mg EVERY MORNING Starting date: 12/15/2014 Ending date: 02/16/2015 (Discontinued) dextroamphetamine-amphetamine (ADDERALL XR) 30 mg 24 hr capsule Dose: 30 mg EVERY MORNING Starting date: 01/14/2015 Ending date: 02/16/2015 (Discontinued) dextroamphetamine-amphetamine (ADDERALL XR) 30 mg 24 hr capsule Dose: 30 mg EVERY MORNING Starting date: 02/17/2015 Ending date: 05/12/2015 (Discontinued) dextroamphetamine-amphetamine (ADDERALL XR) 30 mg 24 hr capsule Dose: 30 mg EVERY MORNING Starting date: 04/18/2015 Ending date: 05/12/2015 (Discontinued) dextroamphetamine-amphetamine (ADDERALL XR) 30 mg 24 hr capsule Dose: 30 mg EVERY MORNING Starting date: 03/19/2015 Ending date: 05/16/2015 (Discontinued) dextroamphetamine-amphetamine (ADDERALL XR) 30 mg 24 hr capsule Dose: 30 mg EVERY MORNING Starting date: 05/16/2015 Ending date: 09/13/2015 (Discontinued) dextroamphetamine-amphetamine (ADDERALL XR) 30 mg 24 hr capsule Dose: 30 mg EVERY MORNING Starting date: 09/13/2015 Ending date: 10/11/2015 (Discontinued) dextroamphetamine-amphetamine (ADDERALL XR) 30 mg 24 hr capsule Dose: 30 mg EVERY MORNING Starting date: 10/11/2015 Ending date: 03/12/2016 (Discontinued) dextroamphetamine-amphetamine (ADDERALL XR) 30 mg 24 hr capsule Dose: 30 mg EVERY MORNING Starting date: 11/10/2015 Ending date: 03/12/2016 (Discontinued) dextroamphetamine-amphetamine (ADDERALL XR) 30 mg 24 hr capsule Dose: 30 mg EVERY MORNING Starting date: 12/11/2015 Ending date: 01/09/2016 (Discontinued) dextroamphetamine-amphetamine (ADDERALL XR) 30 mg 24 hr capsule Dose: 30 mg EVERY MORNING Starting date: 01/09/2016 Ending date: 02/09/2016 (Discontinued) dextroamphetamine-amphetamine (ADDERALL XR) 30 mg 24 hr capsule Dose: 30 mg EVERY MORNING Starting date: 02/09/2016 Ending date: 03/12/2016 (Discontinued) dextroamphetamine-amphetamine (ADDERALL XR) 30 mg 24 hr capsule Dose: 30 mg EVERY MORNING Starting date: 05/09/2016 Ending date: 06/07/2016 (Discontinued) dextroamphetamine-amphetamine (ADDERALL XR) 30 mg 24 hr capsule Dose: 30 mg EVERY MORNING Starting date: 04/10/2016 Ending date: 06/07/2016 (Discontinued) dextroamphetamine-amphetamine (ADDERALL XR) 30 mg 24 hr capsule Dose: 30 mg EVERY MORNING Starting date: 03/12/2016 Ending date: 06/07/2016 (Discontinued) dextroamphetamine-amphetamine (ADDERALL XR) 30 mg 24 hr capsule Dose: 30 mg EVERY MORNING Starting date: 06/07/2016 Ending date: 07/09/2016 (Discontinued) dextroamphetamine-amphetamine (ADDERALL XR) 30 mg 24 hr capsule Dose: 30 mg EVERY MORNING Starting date: 08/08/2016 Ending date: 09/09/2016 (Discontinued) dextroamphetamine-amphetamine (ADDERALL XR) 30 mg 24 hr capsule Dose: 30 mg EVERY MORNING Starting date: 09/07/2016 Ending date: 09/09/2016 (Discontinued) dextroamphetamine-amphetamine (ADDERALL XR) 30 mg 24 hr capsule Dose: 30 mg EVERY MORNING Starting date: 07/09/2016 Ending date: 09/09/2016 (Discontinued) dextroamphetamine-amphetamine (ADDERALL XR) 30 mg 24 hr capsule Dose: 30 mg EVERY MORNING Starting date: 11/09/2016 Ending date: 12/09/2016 (Discontinued) dextroamphetamine-amphetamine (ADDERALL XR) 30 mg 24 hr capsule Dose: 30 mg EVERY MORNING Starting date: 10/10/2016 Ending date: 12/09/2016 (Discontinued) dextroamphetamine-amphetamine (ADDERALL XR) 30 mg 24 hr capsule Dose: 30 mg EVERY MORNING Starting date: 09/09/2016 Ending date: 12/09/2016 (Discontinued) dextroamphetamine-amphetamine (ADDERALL XR) 30 mg 24 hr capsule Dose: 30 mg EVERY MORNING Starting date: 12/09/2016 Ending date: 01/07/2017 (Discontinued) dextroamphetamine-amphetamine (ADDERALL XR) 30 mg 24 hr capsule Dose: 30 mg EVERY MORNING Starting date: 01/07/2017 Ending date: 02/03/2017 (Discontinued) dextroamphetamine-amphetamine (ADDERALL XR) 30 mg 24 hr capsule Dose: 30 mg EVERY MORNING Starting date: 02/03/2017 Ending date: 03/14/2017 (Discontinued) dextroamphetamine-amphetamine (ADDERALL XR) 30 mg 24 hr capsule Dose: 30 mg EVERY MORNING Starting date: 05/14/2017 Ending date: 06/11/2017 (Discontinued) dextroamphetamine-amphetamine (ADDERALL XR) 30 mg 24 hr capsule Dose: 30 mg EVERY MORNING Starting date: 04/13/2017 Ending date: 06/11/2017 (Discontinued) dextroamphetamine-amphetamine (ADDERALL XR) 30 mg 24 hr capsule Dose: 30 mg EVERY MORNING Starting date: 03/14/2017 Ending date: 06/11/2017 (Discontinued) dextroamphetamine-amphetamine (ADDERALL XR) 30 mg 24 hr capsule Dose: 30 mg EVERY MORNING Starting date: 06/11/2017 Ending date: 09/08/2017 (Discontinued) dextroamphetamine-amphetamine (ADDERALL XR) 30 mg 24 hr capsule Dose: 30 mg EVERY MORNING Starting date: 07/11/2017 Ending date: 09/08/2017 (Discontinued) dextroamphetamine-amphetamine (ADDERALL XR) 30 mg 24 hr capsule Dose: 30 mg EVERY MORNING Starting date: 08/10/2017 Ending date: 09/08/2017 (Discontinued) dextroamphetamine-amphetamine (ADDERALL XR) 30 mg 24 hr capsule Dose: 30 mg EVERY MORNING Starting date: 09/08/2017 Ending date: 09/30/2017 (Discontinued) dextroamphetamine-amphetamine (ADDERALL XR) 30 mg 24 hr capsule Dose: 30 mg EVERY MORNING Starting date: 09/30/2017 Ending date: 11/07/2017 (Discontinued) dextroamphetamine-amphetamine (ADDERALL XR) 30 mg 24 hr capsule Dose: 30 mg EVERY MORNING Starting date: 11/07/2017 Ending date: 12/08/2017 (Discontinued) dextroamphetamine-amphetamine (ADDERALL XR) 30 mg 24 hr capsule Dose: 30 mg EVERY MORNING Starting date: 12/08/2017 Ending date: 03/04/2018 (Discontinued) dextroamphetamine-amphetamine (ADDERALL XR) 30 mg 24 hr capsule Dose: 30 mg EVERY MORNING Starting date: 01/07/2018 Ending date: 03/04/2018 (Discontinued) dextroamphetamine-amphetamine (ADDERALL XR) 30 mg 24 hr capsule Dose: 30 mg EVERY MORNING Starting date: 02/06/2018 Ending date: 03/04/2018 (Discontinued) dextroamphetamine-amphetamine (ADDERALL XR) 30 mg 24 hr capsule Dose: 30 mg EVERY MORNING Starting date: 05/03/2018 Ending date: 05/28/2018 (Discontinued) dextroamphetamine-amphetamine (ADDERALL XR) 30 mg 24 hr capsule Dose: 30 mg EVERY MORNING Starting date: 04/03/2018 Ending date: 03/25/2018 (Discontinued) dextroamphetamine-amphetamine (ADDERALL XR) 30 mg 24 hr capsule Dose: 30 mg EVERY MORNING Starting date: 03/04/2018 Ending date: 03/25/2018 (Discontinued) dextroamphetamine-amphetamine (ADDERALL XR) 30 mg 24 hr capsule Dose: 30 mg EVERY MORNING Starting date: 05/28/2018 Ending date: 06/18/2018 (Discontinued) dextroamphetamine-amphetamine (ADDERALL XR) 30 mg 24 hr capsule Dose: 30 mg EVERY MORNING Starting date: 06/18/2018 Ending date: 07/22/2018 (Discontinued) dextroamphetamine-amphetamine (ADDERALL XR) 30 mg 24 hr capsule Dose: 30 mg EVERY MORNING Starting date: 07/23/2018 Ending date: 08/20/2018 (Discontinued) dextroamphetamine-amphetamine (ADDERALL XR) 30 mg 24 hr capsule Dose: 30 mg EVERY MORNING Starting date: 08/20/2018 Ending date: 09/08/2018 (Discontinued) dextroamphetamine-amphetamine (ADDERALL XR) 30 mg 24 hr capsule Dose: 30 mg EVERY MORNING Starting date: 09/08/2018 Ending date: 10/19/2018 (Discontinued) dextroamphetamine-amphetamine (ADDERALL XR) 30 mg 24 hr capsule Dose: 30 mg EVERY MORNING Starting date: 10/21/2018 Ending date: 11/17/2018 (Discontinued) amphetamine-dextroamphetamine XR (ADDERALL XR) 30 mg 24 hr capsule Dose: 30 mg EVERY MORNING Starting date: 11/17/2018 Ending date: 12/18/2018 (Discontinued) amphetamine-dextroamphetamine XR (ADDERALL XR) 30 mg 24 hr capsule Dose: 30 mg EVERY MORNING Starting date: 12/18/2018 Ending date: 01/19/2019 (Discontinued) amphetamine-dextroamphetamine XR (ADDERALL XR) 30 mg 24 hr capsule Dose: 30 mg EVERY MORNING Starting date: 01/19/2019 Ending date: 02/17/2019 (Discontinued) amphetamine-dextroamphetamine XR (ADDERALL XR) 30 mg 24 hr capsule Dose: 30 mg EVERY MORNING Starting date: 02/18/2019 Ending date: 03/18/2019 (Discontinued) amphetamine-dextroamphetamine XR (ADDERALL XR) 30 mg 24 hr capsule Dose: 30 mg EVERY MORNING Starting date: 03/18/2019 Ending date: 04/13/2019 (Discontinued) amphetamine-dextroamphetamine XR (ADDERALL XR) 30 mg 24 hr capsule Dose: 30 mg EVERY MORNING Starting date: 04/13/2019 Ending date: 07/15/2019 (Discontinued) amphetamine-dextroamphetamine XR (ADDERALL XR) 30 mg 24 hr capsule Dose: 30 mg EVERY MORNING Starting date: 05/17/2019 Ending date: 06/16/2019 (Discontinued) amphetamine-dextroamphetamine XR (ADDERALL XR) 30 mg 24 hr capsule Dose: 30 mg EVERY MORNING Starting date: 06/17/2019 Ending date: 07/15/2019 (Discontinued) amphetamine-dextroamphetamine XR (ADDERALL XR) 30 mg 24 hr capsule Dose: 30 mg EVERY MORNING Starting date: 07/15/2019 Ending date: 08/20/2019 (Discontinued) amphetamine-dextroamphetamine XR (ADDERALL XR) 30 mg 24 hr capsule Dose: 30 mg EVERY MORNING Starting date: 08/20/2019 Ending date: 09/17/2019 (Discontinued) amphetamine-dextroamphetamine XR (ADDERALL XR) 30 mg 24 hr capsule Dose: 30 mg EVERY MORNING Starting date: 09/17/2019 Ending date: 10/19/2019 (Discontinued) amphetamine-dextroamphetamine XR (ADDERALL XR) 30 mg 24 hr capsule Dose: 30 mg EVERY MORNING Starting date: 10/19/2019 Ending date: 11/17/2019 (Discontinued) amphetamine-dextroamphetamine XR (ADDERALL XR) 30 mg 24 hr capsule Dose: 30 mg EVERY MORNING Starting date: 11/18/2019 Ending date: 12/22/2019 (Discontinued) amphetamine-dextroamphetamine XR (ADDERALL XR) 30 mg 24 hr capsule Dose: 30 mg EVERY MORNING Starting date: 12/23/2019 Ending date: 01/28/2020 (Discontinued) amphetamine-dextroamphetamine XR (ADDERALL XR) 30 mg 24 hr capsule Dose: 30 mg EVERY MORNING Starting date: 01/28/2020 Ending date: 03/01/2020 (Discontinued) amphetamine-dextroamphetamine XR (ADDERALL XR) 30 mg 24 hr capsule Dose: 30 mg EVERY MORNING Starting date: 03/02/2020 Ending date: 04/07/2020 (Discontinued) amphetamine-dextroamphetamine XR (ADDERALL XR) 30 mg 24 hr capsule Dose: 30 mg EVERY MORNING Starting date: 04/07/2020 Ending date: 05/12/2020 (Discontinued) amphetamine-dextroamphetamine XR (ADDERALL XR) 30 mg 24 hr capsule Dose: 30 mg EVERY MORNING Starting date: 05/12/2020 Ending date: 06/16/2020 (Discontinued) amphetamine-dextroamphetamine XR (ADDERALL XR) 30 mg 24 hr capsule Dose: 30 mg EVERY MORNING Starting date: 06/16/2020 Ending date: 07/21/2020 (Discontinued) amphetamine-dextroamphetamine XR (ADDERALL XR) 30 mg 24 hr capsule Dose: 30 mg EVERY MORNING Starting date: 07/21/2020 Ending date: 08/29/2020 (Discontinued) amphetamine-dextroamphetamine XR (ADDERALL XR) 30 mg 24 hr capsule Dose: 30 mg EVERY MORNING Starting date: 08/29/2020 Ending date: 10/10/2020 (Discontinued) amphetamine-dextroamphetamine XR (ADDERALL XR) 30 mg 24 hr capsule Dose: 30 mg EVERY MORNING Starting date: 10/10/2020 Ending date: 11/18/2020 (Discontinued) amphetamine-dextroamphetamine XR (ADDERALL XR) 30 mg 24 hr capsule Dose: 30 mg EVERY MORNING Starting date: 11/20/2020 Ending date: 2020 (Discontinued) amphetamine-dextroamphetamine XR (ADDERALL XR) 30 mg 24 hr capsule Dose: 30 mg EVERY MORNING Starting date: 01/02/2021 Ending date: 02/10/2021 (Discontinued) amphetamine-dextroamphetamine XR (ADDERALL XR) 30 mg 24 hr capsule Dose: 30 mg EVERY MORNING Starting date: 02/13/2021 Ending date: 03/17/2021 (Discontinued) amphetamine-dextroamphetamine XR (ADDERALL XR) 30 mg 24 hr capsule Dose: 30 mg EVERY MORNING Starting date: 03/17/2021 Ending date: 05/03/2021 (Discontinued) amphetamine-dextroamphetamine XR (ADDERALL XR) 30 mg 24 hr capsule Dose: 30 mg EVERY MORNING Starting date: 05/03/2021 Ending date: 06/13/2021 (Discontinued) amphetamine-dextroamphetamine XR (ADDERALL XR) 30 mg 24 hr capsule Dose: 30 mg EVERY MORNING Starting date: 06/14/2021 Ending date: 07/12/2021 (Discontinued) amphetamine-dextroamphetamine XR (ADDERALL XR) 30 mg 24 hr capsule Dose: 30 mg EVERY MORNING Starting date: 07/12/2021 Ending date: 08/14/2021 (Discontinued) amphetamine-dextroamphetamine XR (ADDERALL XR) 30 mg 24 hr capsule Dose: 30 mg EVERY MORNING Starting date: 08/14/2021 Ending date: 09/11/2021 (Discontinued) amphetamine-dextroamphetamine XR (ADDERALL XR) 30 mg 24 hr capsule Dose: 30 mg EVERY MORNING Starting date: 09/11/2021 Ending date: 10/09/2021 (Discontinued) amphetamine-dextroamphetamine XR (ADDERALL XR) 30 mg 24 hr capsule Dose: 30 mg EVERY MORNING Starting date: 10/09/2021 Ending date: 11/06/2021 (Discontinued) amphetamine-dextroamphetamine XR (ADDERALL XR) 30 mg 24 hr capsule Dose: 30 mg EVERY MORNING Starting date: 11/07/2021 Ending date: 12/07/2021 (Discontinued) amphetamine-dextroamphetamine XR (ADDERALL XR) 30 mg 24 hr capsule Dose: 30 mg EVERY MORNING Starting date: 12/07/2021 Ending date: 01/04/2022 (Discontinued) amphetamine-dextroamphetamine XR (ADDERALL XR) 30 mg 24 hr capsule Dose: 30 mg EVERY MORNING Starting date: 01/04/2022 Ending date: 01/30/2022 (Discontinued) amphetamine-dextroamphetamine XR (ADDERALL XR) 30 mg 24 hr capsule Dose: 30 mg EVERY MORNING Starting date: 01/30/2022 Ending date: 03/05/2022 (Discontinued) amphetamine-dextroamphetamine XR (ADDERALL XR) 30 mg 24 hr capsule Dose: 30 mg EVERY MORNING Starting date: 03/05/2022 Ending date: 04/04/2022 (Discontinued) amphetamine-dextroamphetamine XR (ADDERALL XR) 30 mg 24 hr capsule Dose: 30 mg EVERY MORNING Starting date: 04/04/2022 Ending date: 05/09/2022 (Discontinued) amphetamine-dextroamphetamine XR (ADDERALL XR) 30 mg 24 hr capsule Dose: 30 mg EVERY MORNING Starting date: 05/09/2022 Ending date: 06/06/2022 (Discontinued) amphetamine-dextroamphetamine XR (ADDERALL XR) 30 mg 24 hr capsule Dose: 30 mg EVERY MORNING Starting date: 06/06/2022 Ending date: 06/07/2022 (Discontinued) amphetamine-dextroamphetamine XR (ADDERALL XR) 30 mg 24 hr capsule Dose: 30 mg EVERY MORNING Starting date: 06/07/2022 Ending date: 07/03/2022 (Discontinued) amphetamine-dextroamphetamine XR (ADDERALL XR) 30 mg 24 hr capsule Dose: 30 mg EVERY MORNING Starting date: 07/04/2022 Ending date: 07/09/2022 (Discontinued) amphetamine-dextroamphetamine XR (ADDERALL XR) 30 mg 24 hr capsule Dose: 30 mg EVERY MORNING Starting date: 07/09/2022 Ending date: 08/05/2022 (Discontinued) amphetamine-dextroamphetamine XR (ADDERALL XR) 30 mg 24 hr capsule Dose: 30 mg EVERY MORNING Starting date: 08/06/2022 Ending date: 08/14/2022 (Discontinued) amphetamine-dextroamphetamine XR (ADDERALL XR) 30 mg 24 hr capsule Dose: 30 mg EVERY MORNING Starting date: 08/14/2022 Ending date: 09/13/2022 amphetamine-dextroamphetamine XR (ADDERALL XR) 10 mg 24 hr capsule Dose: 10 mg EVERY MORNING Starting date: 09/13/2015 Ending date: 10/11/2015 (Discontinued) amphetamine-dextroamphetamine XR (ADDERALL XR) 10 mg 24 hr capsule Dose: 10 mg EVERY MORNING Starting date: 10/11/2015 Ending date: 03/12/2016 (Discontinued) amphetamine-dextroamphetamine XR (ADDERALL XR) 10 mg 24 hr capsule Dose: 10 mg EVERY MORNING Starting date: 11/10/2015 Ending date: 12/05/2015 (Discontinued) amphetamine-dextroamphetamine XR (ADDERALL XR) 10 mg 24 hr capsule Dose: 10 mg EVERY MORNING Starting date: 12/11/2015 Ending date: 01/09/2016 (Discontinued) amphetamine-dextroamphetamine XR (ADDERALL XR) 10 mg 24 hr capsule Dose: 10 mg EVERY MORNING Starting date: 01/09/2016 Ending date: 03/12/2016 (Discontinued) amphetamine-dextroamphetamine XR (ADDERALL XR) 10 mg 24 hr capsule Dose: 10 mg EVERY MORNING Starting date: 02/09/2016 Ending date: 03/12/2016 (Discontinued) amphetamine-dextroamphetamine XR (ADDERALL XR) 10 mg 24 hr capsule Dose: 10 mg EVERY MORNING Starting date: 03/12/2016 Ending date: 06/06/2016 (Discontinued) amphetamine-dextroamphetamine XR (ADDERALL XR) 10 mg 24 hr capsule Dose: 10 mg EVERY MORNING Starting date: 04/10/2016 Ending date: 06/07/2016 (Discontinued) amphetamine-dextroamphetamine XR (ADDERALL XR) 10 mg 24 hr capsule Dose: 10 mg EVERY MORNING Starting date: 05/09/2016 Ending date: 06/07/2016 (Discontinued) amphetamine-dextroamphetamine XR (ADDERALL XR) 10 mg 24 hr capsule Dose: 10 mg EVERY MORNING Starting date: 06/07/2016 Ending date: 07/09/2016 (Discontinued) amphetamine-dextroamphetamine XR (ADDERALL XR) 10 mg 24 hr capsule Dose: 10 mg EVERY MORNING Starting date: 08/08/2016 Ending date: 09/09/2016 (Discontinued) amphetamine-dextroamphetamine XR (ADDERALL XR) 10 mg 24 hr capsule Dose: 10 mg EVERY MORNING Starting date: 09/07/2016 Ending date: 09/09/2016 (Discontinued) amphetamine-dextroamphetamine XR (ADDERALL XR) 10 mg 24 hr capsule Dose: 10 mg EVERY MORNING Starting date: 07/09/2016 Ending date: 09/09/2016 (Discontinued) amphetamine-dextroamphetamine XR (ADDERALL XR) 10 mg 24 hr capsule Dose: 10 mg EVERY MORNING Starting date: 11/09/2016 Ending date: 12/09/2016 (Discontinued) amphetamine-dextroamphetamine XR (ADDERALL XR) 10 mg 24 hr capsule Dose: 10 mg EVERY MORNING Starting date: 10/10/2016 Ending date: 12/09/2016 (Discontinued) amphetamine-dextroamphetamine XR (ADDERALL XR) 10 mg 24 hr capsule Dose: 10 mg EVERY MORNING Starting date: 09/09/2016 Ending date: 12/09/2016 (Discontinued) amphetamine-dextroamphetamine XR (ADDERALL XR) 10 mg 24 hr capsule Dose: 10 mg EVERY MORNING Starting date: 12/09/2016 Ending date: 01/07/2017 (Discontinued) amphetamine-dextroamphetamine XR (ADDERALL XR) 10 mg 24 hr capsule Dose: 10 mg EVERY MORNING Starting date: 01/07/2017 Ending date: 02/03/2017 (Discontinued) amphetamine-dextroamphetamine XR (ADDERALL XR) 10 mg 24 hr capsule Dose: 10 mg EVERY MORNING Starting date: 02/03/2017 Ending date: 03/14/2017 (Discontinued) amphetamine-dextroamphetamine XR (ADDERALL XR) 10 mg 24 hr capsule Dose: 10 mg EVERY MORNING Starting date: 05/14/2017 Ending date: 06/11/2017 (Discontinued) amphetamine-dextroamphetamine XR (ADDERALL XR) 10 mg 24 hr capsule Dose: 10 mg EVERY MORNING Starting date: 04/13/2017 Ending date: 06/11/2017 (Discontinued) amphetamine-dextroamphetamine XR (ADDERALL XR) 10 mg 24 hr capsule Dose: 10 mg EVERY MORNING Starting date: 03/14/2017 Ending date: 06/11/2017 (Discontinued) amphetamine-dextroamphetamine XR (ADDERALL XR) 10 mg 24 hr capsule Dose: 10 mg EVERY MORNING Starting date: 06/11/2017 Ending date: 09/08/2017 (Discontinued) amphetamine-dextroamphetamine XR (ADDERALL XR) 10 mg 24 hr capsule Dose: 10 mg EVERY MORNING Starting date: 07/11/2017 Ending date: 09/08/2017 (Discontinued) amphetamine-dextroamphetamine XR (ADDERALL XR) 10 mg 24 hr capsule Dose: 10 mg EVERY MORNING Starting date: 08/10/2017 Ending date: 09/08/2017 (Discontinued) amphetamine-dextroamphetamine XR (ADDERALL XR) 10 mg 24 hr capsule Dose: 10 mg EVERY MORNING Starting date: 09/08/2017 Ending date: 09/30/2017 (Discontinued) amphetamine-dextroamphetamine XR (ADDERALL XR) 10 mg 24 hr capsule Dose: 10 mg EVERY MORNING Starting date: 09/30/2017 Ending date: 11/07/2017 (Discontinued) amphetamine-dextroamphetamine XR (ADDERALL XR) 10 mg 24 hr capsule Dose: 10 mg EVERY MORNING Starting date: 11/07/2017 Ending date: 12/08/2017 (Discontinued) amphetamine-dextroamphetamine XR (ADDERALL XR) 10 mg 24 hr capsule Dose: 10 mg EVERY MORNING Starting date: 12/08/2017 Ending date: 03/04/2018 (Discontinued) amphetamine-dextroamphetamine XR (ADDERALL XR) 10 mg 24 hr capsule Dose: 10 mg EVERY MORNING Starting date: 01/07/2018 Ending date: 03/04/2018 (Discontinued) amphetamine-dextroamphetamine XR (ADDERALL XR) 10 mg 24 hr capsule Dose: 10 mg EVERY MORNING Starting date: 02/06/2018 Ending date: 03/04/2018 (Discontinued) amphetamine-dextroamphetamine XR (ADDERALL XR) 10 mg 24 hr capsule Dose: 10 mg EVERY MORNING Starting date: 05/03/2018 Ending date: 05/28/2018 (Discontinued) amphetamine-dextroamphetamine XR (ADDERALL XR) 10 mg 24 hr capsule Dose: 10 mg EVERY MORNING Starting date: 04/03/2018 Ending date: 03/25/2018 (Discontinued) amphetamine-dextroamphetamine XR (ADDERALL XR) 10 mg 24 hr capsule Dose: 10 mg EVERY MORNING Starting date: 03/04/2018 Ending date: 03/25/2018 (Discontinued) amphetamine-dextroamphetamine XR (ADDERALL XR) 10 mg 24 hr capsule Dose: 10 mg EVERY MORNING Starting date: 05/28/2018 Ending date: 06/18/2018 (Discontinued) amphetamine-dextroamphetamine XR (ADDERALL XR) 10 mg 24 hr capsule Dose: 10 mg EVERY MORNING Starting date: 06/18/2018 Ending date: 07/22/2018 (Discontinued) amphetamine-dextroamphetamine XR (ADDERALL XR) 10 mg 24 hr capsule Dose: 10 mg EVERY MORNING Starting date: 07/23/2018 Ending date: 08/20/2018 (Discontinued) amphetamine-dextroamphetamine XR (ADDERALL XR) 10 mg 24 hr capsule Dose: 10 mg EVERY MORNING Starting date: 08/20/2018 Ending date: 09/08/2018 (Discontinued) amphetamine-dextroamphetamine XR (ADDERALL XR) 10 mg 24 hr capsule Dose: 10 mg EVERY MORNING Starting date: 09/08/2018 Ending date: 10/19/2018 (Discontinued) amphetamine-dextroamphetamine XR (ADDERALL XR) 10 mg 24 hr capsule Dose: 10 mg EVERY MORNING Starting date: 10/21/2018 Ending date: 11/17/2018 (Discontinued) amphetamine-dextroamphetamine XR (ADDERALL XR) 10 mg 24 hr capsule Dose: 10 mg EVERY MORNING Starting date: 11/17/2018 Ending date: 12/18/2018 (Discontinued) amphetamine-dextroamphetamine XR (ADDERALL XR) 10 mg 24 hr capsule Dose: 10 mg EVERY MORNING Starting date: 12/18/2018 Ending date: 01/19/2019 (Discontinued) amphetamine-dextroamphetamine XR (ADDERALL XR) 10 mg 24 hr capsule Dose: 10 mg EVERY MORNING Starting date: 01/19/2019 Ending date: 02/17/2019 (Discontinued) amphetamine-dextroamphetamine XR (ADDERALL XR) 10 mg 24 hr capsule Dose: 10 mg EVERY MORNING Starting date: 02/18/2019 Ending date: 03/18/2019 (Discontinued) amphetamine-dextroamphetamine XR (ADDERALL XR) 10 mg 24 hr capsule Dose: 10 mg EVERY MORNING Starting date: 03/18/2019 Ending date: 04/13/2019 (Discontinued) amphetamine-dextroamphetamine XR (ADDERALL XR) 10 mg 24 hr capsule Dose: 10 mg EVERY MORNING Starting date: 04/13/2019 Ending date: 06/01/2019 (Discontinued) amphetamine-dextroamphetamine XR (ADDERALL XR) 10 mg 24 hr capsule Dose: 10 mg EVERY MORNING Starting date: 05/17/2019 Ending date: 06/16/2019 (Discontinued) amphetamine-dextroamphetamine XR (ADDERALL XR) 10 mg 24 hr capsule Dose: 10 mg EVERY MORNING Starting date: 06/17/2019 Ending date: 07/15/2019 (Discontinued) amphetamine-dextroamphetamine XR (ADDERALL XR) 10 mg 24 hr capsule Dose: 10 mg EVERY MORNING Starting date: 07/15/2019 Ending date: 08/20/2019 (Discontinued) amphetamine-dextroamphetamine XR (ADDERALL XR) 10 mg 24 hr capsule Dose: 10 mg EVERY MORNING Starting date: 08/20/2019 Ending date: 09/17/2019 (Discontinued) amphetamine-dextroamphetamine XR (ADDERALL XR) 10 mg 24 hr capsule Dose: 10 mg EVERY MORNING Starting date: 09/17/2019 Ending date: 10/19/2019 (Discontinued) amphetamine-dextroamphetamine XR (ADDERALL XR) 10 mg 24 hr capsule Dose: 10 mg EVERY MORNING Starting date: 10/19/2019 Ending date: 11/17/2019 (Discontinued) amphetamine-dextroamphetamine XR (ADDERALL XR) 10 mg 24 hr capsule Dose: 10 mg EVERY MORNING Starting date: 11/18/2019 Ending date: 12/22/2019 (Discontinued) amphetamine-dextroamphetamine XR (ADDERALL XR) 10 mg 24 hr capsule Dose: 10 mg EVERY MORNING Starting date: 12/23/2019 Ending date: 01/28/2020 (Discontinued) amphetamine-dextroamphetamine XR (ADDERALL XR) 10 mg 24 hr capsule Dose: 10 mg EVERY MORNING Starting date: 01/28/2020 Ending date: 03/01/2020 (Discontinued) amphetamine-dextroamphetamine XR (ADDERALL XR) 10 mg 24 hr capsule Dose: 10 mg EVERY MORNING Starting date: 03/02/2020 Ending date: 04/07/2020 (Discontinued) amphetamine-dextroamphetamine XR (ADDERALL XR) 10 mg 24 hr capsule Dose: 10 mg EVERY MORNING Starting date: 04/07/2020 Ending date: 05/12/2020 (Discontinued) amphetamine-dextroamphetamine XR (ADDERALL XR) 10 mg 24 hr capsule Dose: 10 mg EVERY MORNING Starting date: 05/12/2020 Ending date: 06/16/2020 (Discontinued) amphetamine-dextroamphetamine XR (ADDERALL XR) 10 mg 24 hr capsule Dose: 10 mg EVERY MORNING Starting date: 06/16/2020 Ending date: 07/21/2020 (Discontinued) amphetamine-dextroamphetamine XR (ADDERALL XR) 10 mg 24 hr capsule Dose: 10 mg EVERY MORNING Starting date: 07/21/2020 Ending date: 08/29/2020 (Discontinued) amphetamine-dextroamphetamine XR (ADDERALL XR) 10 mg 24 hr capsule Dose: 10 mg EVERY MORNING Starting date: 08/29/2020 Ending date: 10/10/2020 (Discontinued) amphetamine-dextroamphetamine XR (ADDERALL XR) 10 mg 24 hr capsule Dose: 10 mg EVERY MORNING Starting date: 10/10/2020 Ending date: 11/18/2020 (Discontinued) amphetamine-dextroamphetamine XR (ADDERALL XR) 10 mg 24 hr capsule Dose: 10 mg EVERY MORNING Starting date: 11/20/2020 Ending date: 2020 (Discontinued) amphetamine-dextroamphetamine XR (ADDERALL XR) 10 mg 24 hr capsule Dose: 10 mg EVERY MORNING Starting date: 01/02/2021 Ending date: 02/10/2021 (Discontinued) amphetamine-dextroamphetamine XR (ADDERALL XR) 10 mg 24 hr capsule Dose: 10 mg EVERY MORNING Starting date: 02/13/2021 Ending date: 03/17/2021 (Discontinued) amphetamine-dextroamphetamine XR (ADDERALL XR) 10 mg 24 hr capsule Dose: 10 mg EVERY MORNING Starting date: 03/17/2021 Ending date: 05/03/2021 (Discontinued) amphetamine-dextroamphetamine XR (ADDERALL XR) 10 mg 24 hr capsule Dose: 10 mg EVERY MORNING Starting date: 05/03/2021 Ending date: 06/13/2021 (Discontinued) amphetamine-dextroamphetamine XR (ADDERALL XR) 10 mg 24 hr capsule Dose: 10 mg EVERY MORNING Starting date: 06/14/2021 Ending date: 07/12/2021 (Discontinued) amphetamine-dextroamphetamine XR (ADDERALL XR) 10 mg 24 hr capsule Dose: 10 mg EVERY MORNING Starting date: 07/12/2021 Ending date: 08/14/2021 (Discontinued) amphetamine-dextroamphetamine XR (ADDERALL XR) 10 mg 24 hr capsule Dose: 10 mg EVERY MORNING Starting date: 08/14/2021 Ending date: 09/11/2021 (Discontinued) amphetamine-dextroamphetamine XR (ADDERALL XR) 10 mg 24 hr capsule Dose: 10 mg EVERY MORNING Starting date: 09/11/2021 Ending date: 10/09/2021 (Discontinued) amphetamine-dextroamphetamine XR (ADDERALL XR) 10 mg 24 hr capsule Dose: 10 mg EVERY MORNING Starting date: 10/09/2021 Ending date: 11/06/2021 (Discontinued) amphetamine-dextroamphetamine XR (ADDERALL XR) 10 mg 24 hr capsule Dose: 10 mg EVERY MORNING Starting date: 11/07/2021 Ending date: 12/07/2021 (Discontinued) amphetamine-dextroamphetamine XR (ADDERALL XR) 10 mg 24 hr capsule Dose: 10 mg EVERY MORNING Starting date: 12/07/2021 Ending date: 01/04/2022 (Discontinued) amphetamine-dextroamphetamine XR (ADDERALL XR) 10 mg 24 hr capsule Dose: 10 mg EVERY MORNING Starting date: 01/04/2022 Ending date: 01/30/2022 (Discontinued) amphetamine-dextroamphetamine XR (ADDERALL XR) 10 mg 24 hr capsule Dose: 10 mg EVERY MORNING Starting date: 01/30/2022 Ending date: 03/05/2022 (Discontinued) amphetamine-dextroamphetamine XR (ADDERALL XR) 10 mg 24 hr capsule Dose: 10 mg EVERY MORNING Starting date: 03/05/2022 Ending date: 03/12/2022 (Discontinued) amphetamine-dextroamphetamine XR (ADDERALL XR) 20 mg ORAL 24 hr capsule Dose: 20 mg EVERY MORNING Starting date: 05/28/2011 Ending date: 06/27/2011 (Discontinued) amphetamine-dextroamphetamine XR (ADDERALL XR) 20 mg 24 hr capsule Dose: 40 mg EVERY MORNING Starting date: 06/14/2015 Ending date: 07/11/2015 (Discontinued) amphetamine-dextroamphetamine XR (ADDERALL XR) 20 mg 24 hr capsule Dose: 40 mg EVERY MORNING Starting date: 07/11/2015 Ending date: 09/13/2015 (Discontinued) amphetamine-dextroamphetamine XR (ADDERALL XR) 20 mg 24 hr capsule Dose: 40 mg DAILY Starting date: 09/09/2015 Ending date: 09/13/2015 (Discontinued) amphetamine-dextroamphetamine XR (ADDERALL XR) 20 mg 24 hr capsule Dose: 40 mg DAILY Starting date: 08/11/2015 Ending date: 09/13/2015 (Discontinued) amphetamine-dextroamphetamine XR (ADDERALL XR) 5 mg ORAL 24 hr capsule Dose: 5 mg EVERY MORNING Starting date: 06/05/2011 Ending date: 06/27/2011 (Discontinued) amphetamine-dextroamphetamine XR (ADDERALL XR) 5 mg 24 hr capsule Dose: 5 mg EVERY MORNING Starting date: 10/24/2014 Ending date: 02/16/2015 (Discontinued) amphetamine-dextroamphetamine XR (ADDERALL XR) 5 mg 24 hr capsule Dose: 5 mg EVERY MORNING Starting date: 11/14/2014 Ending date: 02/16/2015 (Discontinued) amphetamine-dextroamphetamine XR (ADDERALL XR) 5 mg 24 hr capsule Dose: 5 mg EVERY MORNING Starting date: 12/15/2014 Ending date: 02/16/2015 (Discontinued) amphetamine-dextroamphetamine XR (ADDERALL XR) 5 mg 24 hr capsule Dose: 5 mg EVERY MORNING Starting date: 01/14/2015 Ending date: 05/12/2015 (Discontinued) amphetamine-dextroamphetamine XR (ADDERALL XR) 5 mg 24 hr capsule Dose: 5 mg EVERY MORNING Starting date: 02/17/2015 Ending date: 05/12/2015 (Discontinued) amphetamine-dextroamphetamine XR (ADDERALL XR) 5 mg 24 hr capsule Dose: 5 mg EVERY MORNING Starting date: 04/18/2015 Ending date: 05/16/2015 (Discontinued) amphetamine-dextroamphetamine XR (ADDERALL XR) 5 mg 24 hr capsule Dose: 5 mg EVERY MORNING Starting date: 03/19/2015 Ending date: 05/10/2015 (Discontinued) amphetamine-dextroamphetamine XR (ADDERALL XR) 5 mg 24 hr capsule Dose: 5 mg EVERY MORNING Starting date: 05/16/2015 Ending date: 09/13/2015 (Discontinued) atomoxetine (STRATTERA) 40 mg capsule Dose: 40 mg DAILY (NOTE: This is a starter dose. Take 1 daily for the first 3 days.) Starting date: 07/31/2012 Ending date: 09/30/2012 (Discontinued) atomoxetine (STRATTERA) 40 mg capsule Dose: 80 mg DAILY Starting date: 08/04/2012 Ending date: 08/28/2012 (Discontinued) atomoxetine (STRATTERA) 40 mg capsule Dose: 80 mg DAILY Starting date: 08/28/2012 Ending date: 09/26/2012 (Discontinued) atomoxetine (STRATTERA) 40 mg capsule Dose: 80 mg DAILY Starting date: 09/26/2012 Ending date: 10/02/2012 (Discontinued) Atomoxetine (STRATTERA) 80 mg capsule Dose: 80 mg DAILY Starting date: 10/02/2012 Ending date: 11/19/2012 (Discontinued) CONCERTA 18 MG TAB Dose: Take one(1) tablet daily at 8 pm Starting date: 01/08/2006 Ending date: 03/05/2006 (Discontinued) CONCERTA 18 MG 24 HR TAB Dose: Take one(1) tablet daily. Starting date: 04/15/2006 Ending date: 05/19/2006 (Discontinued) CONCERTA 18 MG 24 HR TAB Dose: Take one(1) tablet daily. Starting date: 05/19/2006 Ending date: 06/17/2006 (Discontinued) CONCERTA 18 MG 24 HR TAB Dose: Take one(1) tablet daily. Starting date: 06/17/2006 Ending date: 07/21/2006 (Discontinued) CONCERTA 18 MG 24 HR TAB Dose: Take one(1) tablet daily. Starting date: 07/21/2006 Ending date: 08/19/2006 (Discontinued) CONCERTA 18 MG 24 HR TAB Dose: Take one(1) tablet daily. Starting date: 08/19/2006 Ending date: 09/19/2006 (Discontinued) CONCERTA 18 MG 24 HR TAB Dose: Take one(1) tablet daily. Starting date: 09/19/2006 Ending date: 10/27/2006 (Discontinued) methylphenidate ER (CONCERTA) 18 mg ORAL TO24 Dose: Take one(1) tablet daily. Starting date: 10/27/2006 Ending date: 11/20/2006 (Discontinued) methylphenidate ER (CONCERTA) 18 mg ORAL TO24 Dose: 1 po each am Starting date: 11/20/2006 Ending date: 12/25/2006 (Discontinued) methylphenidate ER (CONCERTA) 18 mg ORAL TO24 Dose: 1 po each am Starting date: 12/25/2006 Ending date: 01/30/2007 (Discontinued) methylphenidate ER (CONCERTA) 18 mg ORAL TO24 Dose: 1 po each am Starting date: 01/30/2007 Ending date: 02/28/2007 (Discontinued) methylphenidate ER (CONCERTA) 18 mg ORAL TO24 Dose: 1 po each am Starting date: 02/28/2007 Ending date: 03/26/2007 (Discontinued) methylphenidate ER (CONCERTA) 18 mg ORAL TO24 Dose: 1 po each am Starting date: 03/26/2007 Ending date: 04/29/2007 (Discontinued) methylphenidate ER (CONCERTA) 18 mg ORAL TO24 Dose: 1 po each am Starting date: 04/29/2007 Ending date: 06/01/2007 (Discontinued) methylphenidate hcl(CONCERTA 18 MG 24 HR TAB) Dose: 1 po each am Starting date: 06/01/2007 Ending date: 06/25/2007 (Discontinued) methylphenidate hcl(CONCERTA 18 MG 24 HR TAB) Dose: 1 po each am Starting date: 06/25/2007 Ending date: 07/22/2007 (Discontinued) methylphenidate hcl(CONCERTA 18 MG 24 HR TAB) Dose: 1 po each am Starting date: 06/25/2007 Ending date: 07/25/2007 methylphenidate hcl(CONCERTA 18 MG 24 HR TAB) Dose: 1 po each am Starting date: 07/22/2007 Ending date: 08/21/2007 CONCERTA 27 MG 24 HR TAB Dose: Take one(1) tablet daily on an empty stomach Starting date: 02/18/2006 Ending date: 03/05/2006 (Discontinued) CONCERTA 27 MG 24 HR TAB Dose: Take one(1) tablet daily. Starting date: 04/15/2006 Ending date: 05/19/2006 (Discontinued) CONCERTA 27 MG 24 HR TAB Dose: Take one(1) tablet daily. Starting date: 05/19/2006 Ending date: 06/17/2006 (Discontinued) CONCERTA 27 MG 24 HR TAB Dose: Take one(1) tablet daily. Starting date: 06/17/2006 Ending date: 07/21/2006 (Discontinued) CONCERTA 27 MG 24 HR TAB Dose: Take one(1) tablet daily. Starting date: 07/21/2006 Ending date: 08/19/2006 (Discontinued) CONCERTA 27 MG 24 HR TAB Dose: Take one(1) tablet daily. Starting date: 08/19/2006 Ending date: 09/19/2006 (Discontinued) CONCERTA 27 MG 24 HR TAB Dose: Take one(1) tablet daily. Starting date: 09/19/2006 Ending date: 10/27/2006 (Discontinued) methylphenidate ER (CONCERTA) 27 mg ORAL TO24 Dose: Take one(1) tablet daily. Starting date: 10/27/2006 Ending date: 11/20/2006 (Discontinued) methylphenidate ER (CONCERTA) 27 mg ORAL TO24 Dose: 1 po each am Starting date: 11/20/2006 Ending date: 12/25/2006 (Discontinued) methylphenidate ER (CONCERTA) 27 mg ORAL TO24 Dose: 1 po each am Starting date: 12/25/2006 Ending date: 01/30/2007 (Discontinued) methylphenidate ER (CONCERTA) 27 mg ORAL TO24 Dose: 1 po each am Starting date: 01/30/2007 Ending date: 02/28/2007 (Discontinued) methylphenidate ER (CONCERTA) 27 mg ORAL TO24 Dose: 1 po each am Starting date: 02/28/2007 Ending date: 03/26/2007 (Discontinued) methylphenidate ER (CONCERTA) 27 mg ORAL TO24 Dose: 1 po each am Starting date: 03/26/2007 Ending date: 04/29/2007 (Discontinued) methylphenidate ER (CONCERTA) 27 mg ORAL TO24 Dose: 1 po each am Starting date: 04/29/2007 Ending date: 06/01/2007 (Discontinued) methylphenidate hcl(CONCERTA 27 MG 24 HR TAB) Dose: 1 po each am Starting date: 06/01/2007 Ending date: 06/25/2007 (Discontinued) methylphenidate hcl(CONCERTA 27 MG 24 HR TAB) Dose: 1 po each am Starting date: 06/25/2007 Ending date: 07/22/2007 (Discontinued) methylphenidate hcl(CONCERTA 27 MG 24 HR TAB) Dose: 1 po each am Starting date: 06/25/2007 Ending date: 07/25/2007 methylphenidate hcl(CONCERTA 27 MG 24 HR TAB) Dose: 1 po each am Starting date: 07/22/2007 Ending date: 08/21/2007 methylphenidate hcl(CONCERTA 27 MG 24 HR TAB) Dose: 1 po each am Starting date: 08/27/2007 Ending date: 10/14/2007 (Discontinued) CONCERTA 36 MG 24 HR TAB Dose: 1 po each am Starting date: 03/05/2006 Ending date: 03/27/2006 (Discontinued) CONCERTA 36 MG 24 HR TAB Dose: 1 po each am Starting date: 03/27/2006 Ending date: 04/15/2006 (Discontinued) methylphenidate hcl(CONCERTA 36 MG 24 HR TAB) Dose: 1 po each am Starting date: 09/17/2007 Ending date: 10/14/2007 (Discontinued) methylphenidate hcl(CONCERTA 36 MG 24 HR TAB) Dose: 1 po each am Starting date: 10/14/2007 Ending date: 11/11/2007 (Discontinued) methylphenidate hcl(CONCERTA 36 MG 24 HR TAB) Dose: 1 po each am Starting date: 11/11/2007 Ending date: 12/14/2007 (Discontinued) methylphenidate hcl(CONCERTA 36 MG 24 HR TAB) Dose: 1 po each am Starting date: 12/14/2007 Ending date: 01/05/2008 (Discontinued) methylphenidate hcl(CONCERTA 36 MG 24 HR TAB) Dose: 1 po each am Starting date: 01/05/2008 Ending date: 01/11/2008 (Discontinued) methylphenidate hcl(CONCERTA 36 MG 24 HR TAB) Dose: 2 po each am Starting date: 09/22/2008 Ending date: 10/06/2008 (Discontinued) methylphenidate hcl(CONCERTA 36 MG 24 HR TAB) Dose: 2 po each am Starting date: 10/06/2008 Ending date: 10/21/2008 (Discontinued) methylphenidate hcl(CONCERTA 36 MG 24 HR TAB) Dose: 2 po each am Starting date: 10/21/2008 Ending date: 11/18/2008 (Discontinued) methylphenidate hcl(CONCERTA 36 MG 24 HR TAB) Dose: 2 po each am Starting date: 11/18/2008 Ending date: 12/16/2008 (Discontinued) methylphenidate hcl(CONCERTA 36 MG 24 HR TAB) Dose: 2 po each am Starting date: 12/16/2008 Ending date: 01/13/2009 (Discontinued) methylphenidate hcl(CONCERTA 36 MG 24 HR TAB) Dose: 2 po each am Starting date: 01/13/2009 Ending date: 02/14/2009 (Discontinued) methylphenidate hcl(CONCERTA 36 MG 24 HR TAB) Dose: 2 po each am Starting date: 02/14/2009 Ending date: 03/13/2009 (Discontinued) methylphenidate hcl(CONCERTA 36 MG 24 HR TAB) Dose: 2 po each am Starting date: 03/13/2009 Ending date: 04/10/2009 (Discontinued) methylphenidate hcl(CONCERTA 36 MG 24 HR TAB) Dose: 2 po each am Starting date: 04/10/2009 Ending date: 04/14/2009 (Discontinued) methylphenidate hcl(CONCERTA 36 MG 24 HR TAB) Dose: 2 po each am Starting date: 04/14/2009 Ending date: 04/14/2009 (Discontinued) methylphenidate hcl(CONCERTA 36 MG 24 HR TAB) Dose: 2 po each am Starting date: 04/14/2009 Ending date: 05/11/2009 (Discontinued) methylphenidate hcl(CONCERTA 36 MG 24 HR TAB) Dose: 2 po each am Starting date: 05/11/2009 Ending date: 06/06/2009 (Discontinued) methylphenidate hcl(CONCERTA 36 MG 24 HR TAB) Dose: 2 po each am Starting date: 06/06/2009 Ending date: 07/05/2009 (Discontinued) methylphenidate hcl(CONCERTA 36 MG 24 HR TAB) Dose: 2 po each am Starting date: 07/05/2009 Ending date: 08/03/2009 (Discontinued) methylphenidate hcl(CONCERTA 36 MG 24 HR TAB) Dose: 2 po each am Starting date: 08/03/2009 Ending date: 08/30/2009 (Discontinued) methylphenidate hcl(CONCERTA 36 MG 24 HR TAB) Dose: 2 po each am Starting date: 08/30/2009 Ending date: 09/25/2009 (Discontinued) methylphenidate hcl(CONCERTA 36 MG 24 HR TAB) Dose: 2 po each am Starting date: 09/25/2009 Ending date: 10/23/2009 (Discontinued) methylphenidate hcl(CONCERTA 36 MG 24 HR TAB) Dose: 2 po each am Starting date: 10/23/2009 Ending date: 11/16/2009 (Discontinued) methylphenidate hcl(CONCERTA 36 MG 24 HR TAB) Dose: 2 po each am Starting date: 11/16/2009 Ending date: 12/15/2009 (Discontinued) methylphenidate hcl(CONCERTA 36 MG 24 HR TAB) Dose: 2 po each am Starting date: 12/15/2009 Ending date: 01/08/2010 (Discontinued) methylphenidate hcl(CONCERTA 36 MG 24 HR TAB) Dose: 2 po each am Starting date: 01/08/2010 Ending date: 02/05/2010 (Discontinued) methylphenidate hcl(CONCERTA 36 MG 24 HR TAB) Dose: 2 po each am Starting date: 02/05/2010 Ending date: 03/01/2010 (Discontinued) methylphenidate hcl(CONCERTA 36 MG 24 HR TAB) Dose: 2 po each am Starting date: 03/01/2010 Ending date: 03/20/2010 (Discontinued) methylphenidate hcl(CONCERTA 36 MG 24 HR TAB) Dose: 2 po each am Starting date: 03/20/2010 Ending date: 04/16/2010 (Discontinued) FOCALIN XR 10 MG CAP Dose: Take one(1) tablet daily. Starting date: 06/13/2005 Ending date: 06/25/2005 (Discontinued) FOCALIN XR 10 MG CAP Dose: Take one(1) tablet daily. Starting date: 06/25/2005 Ending date: 07/29/2005 (Discontinued) FOCALIN XR 10 MG CAP Dose: Take one(1) tablet daily. Starting date: 07/29/2005 Ending date: 08/27/2005 (Discontinued) FOCALIN XR 10 MG CAP Dose: Take one(1) tablet daily. Starting date: 08/27/2005 Ending date: 09/14/2005 (Discontinued) FOCALIN XR 10 MG CAP Dose: Take one(1) tablet daily. Starting date: 09/14/2005 Ending date: 10/21/2005 (Discontinued) FOCALIN XR 10 MG CAP Dose: Take one(1) tablet daily. Starting date: 10/21/2005 Ending date: 01/08/2006 (Discontinued) methylphenidate (RITALIN) 20 mg ORAL tablet Dose: 1 po approx. 3-4 pm prn Starting date: 04/16/2010 Ending date: 05/10/2010 (Discontinued) methylphenidate (RITALIN) 20 mg ORAL tablet Dose: 1 po approx. 3-4 pm prn Starting date: 05/10/2010 Ending date: 06/05/2010 (Discontinued) methylphenidate (RITALIN) 20 mg ORAL tablet Dose: 1 po approx. 3-4 pm prn Starting date: 06/05/2010 Ending date: 06/29/2010 (Discontinued) methylphenidate (RITALIN) 20 mg ORAL tablet Dose: 1 po approx. 3-4 pm prn Starting date: 06/29/2010 Ending date: 07/26/2010 (Discontinued) methylphenidate (RITALIN) 20 mg ORAL tablet Dose: 1 po approx. 3-4 pm prn Starting date: 07/26/2010 Ending date: 08/17/2010 (Discontinued) methylphenidate (RITALIN) 20 mg ORAL tablet Dose: 1 po approx. 3-4 pm prn Starting date: 08/17/2010 Ending date: 09/11/2010 (Discontinued) methylphenidate (RITALIN) 20 mg ORAL tablet Dose: 20 mg Take at approx. 3-4 pm prn. Starting date: 09/11/2010 Ending date: 10/04/2010 (Discontinued) methylphenidate (RITALIN) 20 mg ORAL tablet Dose: 20 mg Take at approx. 3-4 pm prn. Starting date: 10/04/2010 Ending date: 10/27/2010 (Discontinued) methylphenidate (RITALIN) 20 mg ORAL tablet Dose: 20 mg Take at approx. 3-4 pm prn. Starting date: 10/27/2010 Ending date: 11/22/2010 (Discontinued) methylphenidate (RITALIN) 20 mg ORAL tablet Dose: 20 mg Take at approx. 3-4 pm prn. Starting date: 11/22/2010 Ending date: 12/17/2010 (Discontinued) methylphenidate (RITALIN) 20 mg ORAL tablet Dose: 20 mg Take at approx. 3-4 pm prn. Starting date: 12/17/2010 Ending date: 01/10/2011 (Discontinued) methylphenidate (RITALIN) 20 mg ORAL tablet Dose: 20 mg Take at approx. 3-4 pm prn. Starting date: 01/10/2011 Ending date: 02/04/2011 (Discontinued) methylphenidate (RITALIN) 20 mg ORAL tablet Dose: 20 mg Take at approx. 3-4 pm prn. Starting date: 02/04/2011 Ending date: 02/28/2011 (Discontinued) methylphenidate (RITALIN) 20 mg ORAL tablet Dose: 20 mg Take at approx. 3-4 pm prn. Starting date: 02/28/2011 Ending date: 03/22/2011 (Discontinued) methylphenidate (RITALIN) 20 mg ORAL tablet Dose: 20 mg Take at approx. 3-4 pm prn. Starting date: 03/22/2011 Ending date: 04/16/2011 (Discontinued) methylphenidate (RITALIN) 20 mg ORAL tablet Dose: 20 mg Take at approx. 3-4 pm prn. Starting date: 04/16/2011 Ending date: 05/10/2011 (Discontinued) methylphenidate (RITALIN) 20 mg ORAL tablet Dose: 20 mg Take at approx. 3-4 pm prn. Starting date: 05/10/2011 Ending date: 06/04/2011 (Discontinued) methylphenidate (RITALIN) 20 mg ORAL tablet Dose: 20 mg Take at approx. 3-4 pm prn. Starting date: 06/04/2011 Ending date: 06/27/2011 (Discontinued) methylphenidate (RITALIN) 20 mg ORAL tablet Dose: 20 mg Take at approx. 3-4 pm prn. Starting date: 06/27/2011 Ending date: 07/29/2011 (Discontinued) methylphenidate (RITALIN) 20 mg ORAL tablet Dose: 20 mg Take at approx. 3-4 pm prn. Starting date: 07/29/2011 Ending date: 08/23/2011 (Discontinued) methylphenidate (RITALIN) 20 mg ORAL tablet Dose: 20 mg Take at approx. 3-4 pm prn. Starting date: 08/23/2011 Ending date: 09/17/2011 (Discontinued) methylphenidate (RITALIN) 20 mg ORAL tablet Dose: 20 mg Take at approx. 3-4 pm prn. Starting date: 09/17/2011 Ending date: 10/17/2011 (Discontinued) methylphenidate (RITALIN) 20 mg ORAL tablet Dose: 20 mg Take at approx. 3-4 pm prn. Starting date: 10/17/2011 Ending date: 11/16/2011 (Discontinued) methylphenidate (RITALIN) 20 mg tablet Dose: 20 mg Take at approx. 3-4 pm prn. Starting date: 11/16/2011 Ending date: 12/16/2011 (Discontinued) methylphenidate (RITALIN) 20 mg tablet Dose: Take 1 tablet by mouth. Take at approx. 3-4 pm prn. Starting date: 12/16/2011 Ending date: 01/13/2012 (Discontinued) methylphenidate (RITALIN) 20 mg tablet Dose: Take 1 tablet by mouth. Take at approx. 3-4 pm prn. Starting date: 01/13/2012 Ending date: 02/10/2012 (Discontinued) methylphenidate (RITALIN) 20 mg tablet Dose: Take 1 tablet by mouth. Take at approx. 3-4 pm prn. Starting date: 02/10/2012 Ending date: 03/11/2012 (Discontinued) methylphenidate (RITALIN) 20 mg tablet Dose: Take 1 tablet by mouth. Take at approx. 3-4 pm prn. Starting date: 03/11/2012 Ending date: 04/08/2012 (Discontinued) methylphenidate (RITALIN) 20 mg tablet Dose: Take 1 tablet by mouth. Take at approx. 3-4 pm prn. Starting date: 04/08/2012 Ending date: 05/07/2012 (Discontinued) methylphenidate (RITALIN) 20 mg tablet Dose: Take 1 tablet by mouth. Take at approx. 3-4 pm prn. Starting date: 05/07/2012 Ending date: 06/04/2012 (Discontinued) methylphenidate (RITALIN) 20 mg tablet Dose: Take 1 tablet by mouth. Take at approx. 3-4 pm prn. Starting date: 06/04/2012 Ending date: 07/03/2012 (Discontinued) methylphenidate (RITALIN) 20 mg tablet Dose: Take 1 tablet by mouth. Take at approx. 3-4 pm prn. Starting date: 07/03/2012 Ending date: 07/31/2012 (Discontinued) methylphenidate (RITALIN) 20 mg tablet Dose: Take 1 tablet by mouth. Take at approx. 3-4 pm prn. Starting date: 07/31/2012 Ending date: 08/28/2012 (Discontinued) methylphenidate (RITALIN) 20 mg tablet Dose: Take 1 tablet by mouth. Take at approx. 3-4 pm prn. Starting date: 08/28/2012 Ending date: 09/26/2012 (Discontinued) methylphenidate (RITALIN) 20 mg tablet Dose: 20 mg NEEDED Take at approx. 3-4 pm. Starting date: 09/26/2012 Ending date: 10/24/2012 (Discontinued) methylphenidate (RITALIN) 20 mg tablet Dose: 20 mg NEEDED Take at approx. 3-4 pm. Starting date: 10/24/2012 Ending date: 11/21/2012 (Discontinued) methylphenidate (RITALIN) 20 mg tablet Dose: 20 mg NEEDED Take at approx. 3-4 pm. Starting date: 11/21/2012 Ending date: 12/22/2012 (Discontinued) methylphenidate (RITALIN) 20 mg tablet Dose: 20 mg NEEDED Take at approx. 3-4 pm. Starting date: 12/22/2012 Ending date: 01/19/2013 (Discontinued) methylphenidate (RITALIN) 20 mg tablet Dose: 20 mg NEEDED Take at approx. 3-4 pm. Starting date: 01/19/2013 Ending date: 02/18/2013 (Discontinued) methylphenidate (RITALIN) 20 mg tablet Dose: 20 mg NEEDED Take at approx. 3-4 pm. Starting date: 02/18/2013 Ending date: 03/22/2013 (Discontinued) methylphenidate (RITALIN) 20 mg tablet Dose: 20 mg NEEDED Take at approx. 3-4 pm. Starting date: 03/22/2013 Ending date: 04/19/2013 (Discontinued) methylphenidate (RITALIN) 20 mg tablet Dose: 20 mg NEEDED Take at approx. 3-4 pm. Starting date: 04/19/2013 Ending date: 05/18/2013 (Discontinued) methylphenidate (RITALIN) 20 mg tablet Dose: 20 mg NEEDED Take at approx. 3-4 pm. Starting date: 05/18/2013 Ending date: 06/15/2013 (Discontinued) methylphenidate (RITALIN) 20 mg tablet Dose: 20 mg NEEDED Take at approx. 3-4 pm. Starting date: 06/15/2013 Ending date: 07/14/2013 (Discontinued) methylphenidate (RITALIN) 20 mg tablet Dose: 20 mg NEEDED Take at approx. 3-4 pm. Starting date: 07/14/2013 Ending date: 08/12/2013 (Discontinued) methylphenidate (RITALIN) 20 mg tablet Dose: 20 mg NEEDED Take at approx. 3-4 pm. Starting date: 08/12/2013 Ending date: 09/07/2013 (Discontinued) methylphenidate (RITALIN) 20 mg tablet Dose: 20 mg NEEDED Take at approx. 3-4 pm. Starting date: 09/07/2013 Ending date: 10/06/2013 (Discontinued) methylphenidate (RITALIN) 20 mg tablet Dose: 20 mg NEEDED Take at approx. 3-4 pm. Starting date: 10/06/2013 Ending date: 11/03/2013 (Discontinued) methylphenidate (RITALIN) 20 mg tablet Dose: 20 mg NEEDED Take at approx. 3-4 pm. Starting date: 11/03/2013 Ending date: 12/02/2013 (Discontinued) methylphenidate (RITALIN) 20 mg tablet Dose: 20 mg NEEDED Take at approx. 3-4 pm. Starting date: 12/02/2013 Ending date: 12/29/2013 (Discontinued) methylphenidate (RITALIN) 20 mg tablet Dose: 20 mg NEEDED Take at approx. 3-4 pm. Starting date: 12/29/2013 Ending date: 01/28/2014 (Discontinued) methylphenidate (RITALIN) 20 mg tablet Dose: 20 mg NEEDED Take at approx. 3-4 pm. Starting date: 01/28/2014 Ending date: 03/01/2014 (Discontinued) methylphenidate (RITALIN) 20 mg tablet Dose: 20 mg NEEDED Take at approx. 3-4 pm. Starting date: 03/01/2014 Ending date: 03/28/2014 (Discontinued) methylphenidate (RITALIN) 20 mg tablet Dose: 20 mg NEEDED Take at approx. 3-4 pm. Starting date: 03/28/2014 Ending date: 04/22/2014 (Discontinued) methylphenidate (RITALIN) 20 mg tablet Dose: 20 mg NEEDED Take at approx. 3-4 pm. Starting date: 04/22/2014 Ending date: 06/09/2014 (Discontinued) methylphenidate (RITALIN) 20 mg tablet Dose: 20 mg NEEDED Take at approx. 3-4 pm. Starting date: 04/22/2014 Ending date: 04/22/2014 (Discontinued) methylphenidate (RITALIN) 20 mg tablet Dose: 20 mg NEEDED Take at approx. 3-4 pm. Starting date: 04/22/2014 Ending date: 04/22/2014 (Discontinued) methylphenidate (RITALIN) 20 mg tablet Dose: 20 mg NEEDED Take at approx. 3-4 pm. Starting date: 06/22/2014 Ending date: 06/09/2014 (Discontinued) methylphenidate (RITALIN) 20 mg tablet Dose: 20 mg NEEDED Take at approx. 3-4 pm. Starting date: 05/23/2014 Ending date: 07/21/2014 (Discontinued) methylphenidate (RITALIN) 20 mg tablet Dose: 20 mg NEEDED Take at approx. 3-4 pm. Starting date: 07/21/2014 Ending date: 10/18/2014 (Discontinued) methylphenidate (RITALIN) 20 mg tablet Dose: 20 mg NEEDED Take at approx. 3-4 pm. Starting date: 08/22/2014 Ending date: 10/18/2014 (Discontinued) methylphenidate (RITALIN) 20 mg tablet Dose: 20 mg NEEDED Take at approx. 3-4 pm. Starting date: 09/19/2014 Ending date: 10/18/2014 (Discontinued) methylphenidate (RITALIN) 20 mg tablet Dose: 20 mg NEEDED Take at approx. 3-4 pm. Starting date: 10/18/2014 Ending date: 11/17/2014 (Discontinued) methylphenidate (RITALIN) 20 mg tablet Dose: 20 mg NEEDED Take at approx. 3-4 pm. Starting date: 01/18/2015 Ending date: 02/16/2015 (Discontinued) methylphenidate (RITALIN) 20 mg tablet Dose: 20 mg NEEDED Take at approx. 3-4 pm. Starting date: 12/19/2014 Ending date: 02/16/2015 (Discontinued) methylphenidate (RITALIN) 20 mg tablet Dose: 20 mg NEEDED Take at approx. 3-4 pm. Starting date: 11/18/2014 Ending date: 02/16/2015 (Discontinued) methylphenidate (RITALIN) 20 mg tablet Dose: 20 mg NEEDED Take at approx. 3-4 pm. Starting date: 02/17/2015 Ending date: 05/16/2015 (Discontinued) methylphenidate (RITALIN) 20 mg tablet Dose: 20 mg NEEDED Take at approx. 3-4 pm. Starting date: 03/19/2015 Ending date: 05/12/2015 (Discontinued) methylphenidate (RITALIN) 20 mg tablet Dose: 20 mg NEEDED Take at approx. 3-4 pm. Starting date: 04/18/2015 Ending date: 05/12/2015 (Discontinued) methylphenidate (RITALIN) 20 mg tablet Dose: 20 mg NEEDED Take at approx. 3-4 pm. Starting date: 05/16/2015 Ending date: 06/14/2015 (Discontinued) methylphenidate (RITALIN) 20 mg tablet Dose: 20 mg NEEDED Take at approx. 3-4 pm. Starting date: 06/14/2015 Ending date: 07/11/2015 (Discontinued) methylphenidate (RITALIN) 20 mg tablet Dose: 20 mg NEEDED Take at approx. 3-4 pm. Starting date: 07/11/2015 Ending date: 10/11/2015 (Discontinued) methylphenidate (RITALIN) 20 mg tablet Dose: 20 mg NEEDED Take at approx. 3-4 pm. Starting date: 09/09/2015 Ending date: 10/11/2015 (Discontinued) methylphenidate (RITALIN) 20 mg tablet Dose: 20 mg NEEDED Take at approx. 3-4 pm. Starting date: 08/11/2015 Ending date: 10/11/2015 (Discontinued) methylphenidate (RITALIN) 20 mg tablet Dose: 20 mg NEEDED Take at approx. 3-4 pm. Starting date: 11/10/2015 Ending date: 12/05/2015 (Discontinued) methylphenidate (RITALIN) 20 mg tablet Dose: 20 mg NEEDED Take at approx. 3-4 pm. Starting date: 12/11/2015 Ending date: 03/12/2016 (Discontinued) methylphenidate (RITALIN) 20 mg tablet Dose: 20 mg NEEDED Take at approx. 3-4 pm. Starting date: 10/11/2015 Ending date: 03/12/2016 (Discontinued) methylphenidate (RITALIN) 20 mg tablet Dose: 20 mg NEEDED Take at approx. 3-4 pm. Starting date: 01/09/2016 Ending date: 02/09/2016 (Discontinued) methylphenidate (RITALIN) 20 mg tablet Dose: 20 mg NEEDED Take at approx. 3-4 pm. Starting date: 02/09/2016 Ending date: 03/12/2016 (Discontinued) methylphenidate (RITALIN) 20 mg tablet Dose: 20 mg NEEDED Take at approx. 3-4 pm. Starting date: 05/09/2016 Ending date: 06/07/2016 (Discontinued) methylphenidate (RITALIN) 20 mg tablet Dose: 20 mg NEEDED Take at approx. 3-4 pm. Starting date: 04/10/2016 Ending date: 06/07/2016 (Discontinued) methylphenidate (RITALIN) 20 mg tablet Dose: 20 mg NEEDED Take at approx. 3-4 pm. Starting date: 03/12/2016 Ending date: 06/07/2016 (Discontinued) methylphenidate (RITALIN) 20 mg tablet Dose: 20 mg NEEDED Take at approx. 3-4 pm. Starting date: 06/07/2016 Ending date: 07/09/2016 (Discontinued) methylphenidate (RITALIN) 20 mg tablet Dose: 20 mg NEEDED between 3-4 pm Starting date: 08/08/2016 Ending date: 09/09/2016 (Discontinued) methylphenidate (RITALIN) 20 mg tablet Dose: 20 mg NEEDED between 3-4 pm Starting date: 09/07/2016 Ending date: 09/09/2016 (Discontinued) methylphenidate (RITALIN) 20 mg tablet Dose: 20 mg NEEDED Take at approx. 3-4 pm. Starting date: 07/09/2016 Ending date: 09/09/2016 (Discontinued) methylphenidate (RITALIN) 20 mg tablet Dose: 20 mg NEEDED Take at approx. 3-4 pm. Starting date: 11/09/2016 Ending date: 12/09/2016 (Discontinued) methylphenidate (RITALIN) 20 mg tablet Dose: 20 mg NEEDED Take at approx. 3-4 pm. Starting date: 10/10/2016 Ending date: 12/09/2016 (Discontinued) methylphenidate (RITALIN) 20 mg tablet Dose: 20 mg NEEDED Take at approx. 3-4 pm. Starting date: 09/09/2016 Ending date: 12/09/2016 (Discontinued) methylphenidate (RITALIN) 20 mg tablet Dose: 20 mg NEEDED Take at approx. 3-4 pm. Starting date: 12/09/2016 Ending date: 01/07/2017 (Discontinued) methylphenidate (RITALIN) 20 mg tablet Dose: 20 mg NEEDED Take at approx. 3-4 pm. Starting date: 01/07/2017 Ending date: 02/03/2017 (Discontinued) methylphenidate (RITALIN) 20 mg tablet Dose: 20 mg NEEDED Take at approx. 3-4 pm. Starting date: 02/03/2017 Ending date: 03/14/2017 (Discontinued) methylphenidate (RITALIN) 20 mg tablet Dose: 20 mg NEEDED Take at approx. 3-4 pm. Starting date: 05/14/2017 Ending date: 06/11/2017 (Discontinued) methylphenidate (RITALIN) 20 mg tablet Dose: 20 mg NEEDED Take at approx. 3-4 pm. Starting date: 04/13/2017 Ending date: 06/11/2017 (Discontinued) methylphenidate (RITALIN) 20 mg tablet Dose: 20 mg NEEDED Take at approx. 3-4 pm. Starting date: 03/14/2017 Ending date: 06/11/2017 (Discontinued) methylphenidate (RITALIN) 20 mg tablet Dose: 20 mg NEEDED Take at approx. 3-4 pm. Starting date: 06/11/2017 Ending date: 09/08/2017 (Discontinued) methylphenidate (RITALIN) 20 mg tablet Dose: 20 mg NEEDED Take at approx. 3-4 pm. Starting date: 08/10/2017 Ending date: 09/08/2017 (Discontinued) methylphenidate (RITALIN) 20 mg tablet Dose: 20 mg NEEDED Take at approx. 3-4 pm. Starting date: 07/11/2017 Ending date: 09/08/2017 (Discontinued) methylphenidate (RITALIN) 20 mg tablet Dose: 20 mg NEEDED Take at approx. 3-4 pm. Starting date: 09/08/2017 Ending date: 09/30/2017 (Discontinued) methylphenidate (RITALIN) 20 mg tablet Dose: 20 mg NEEDED Take at approx. 3-4 pm. Starting date: 09/30/2017 Ending date: 11/07/2017 (Discontinued) methylphenidate (RITALIN) 20 mg tablet Dose: 20 mg NEEDED Take at approx. 3-4 pm. Starting date: 11/07/2017 Ending date: 12/08/2017 (Discontinued) methylphenidate (RITALIN) 20 mg tablet Dose: 20 mg NEEDED Take at approx. 3-4 pm. Starting date: 12/08/2017 Ending date: 03/04/2018 (Discontinued) methylphenidate (RITALIN) 20 mg tablet Dose: 20 mg NEEDED Take at approx. 3-4 pm. Starting date: 01/07/2018 Ending date: 03/04/2018 (Discontinued) methylphenidate (RITALIN) 20 mg tablet Dose: 20 mg NEEDED Take at approx. 3-4 pm. Starting date: 02/06/2018 Ending date: 03/04/2018 (Discontinued) methylphenidate (RITALIN) 20 mg tablet Dose: 20 mg NEEDED Take at approx. 3-4 pm. Starting date: 05/04/2018 Ending date: 05/28/2018 (Discontinued) methylphenidate (RITALIN) 20 mg tablet Dose: 20 mg NEEDED Take at approx. 3-4 pm. Starting date: 04/03/2018 Ending date: 03/25/2018 (Discontinued) methylphenidate (RITALIN) 20 mg tablet Dose: 20 mg NEEDED Take at approx. 3-4 pm. Starting date: 03/04/2018 Ending date: 03/25/2018 (Discontinued) methylphenidate (RITALIN) 20 mg tablet Dose: 20 mg NEEDED Take at approx. 3-4 pm. Starting date: 05/28/2018 Ending date: 06/18/2018 (Discontinued) methylphenidate (RITALIN) 20 mg tablet Dose: 20 mg NEEDED Take at approx. 3-4 pm. Starting date: 06/18/2018 Ending date: 07/22/2018 (Discontinued) methylphenidate (RITALIN) 20 mg tablet Dose: 20 mg NEEDED Take at approx. 3-4 pm. Starting date: 07/23/2018 Ending date: 08/20/2018 (Discontinued) methylphenidate (RITALIN) 20 mg tablet Dose: 20 mg NEEDED Take at approx. 3-4 pm. Starting date: 08/20/2018 Ending date: 09/08/2018 (Discontinued) methylphenidate (RITALIN) 20 mg tablet Dose: 20 mg NEEDED Take at approx. 3-4 pm. Starting date: 09/08/2018 Ending date: 10/19/2018 (Discontinued) methylphenidate (RITALIN) 20 mg tablet Dose: 20 mg NEEDED Take at approx. 3-4 pm. Starting date: 10/21/2018 Ending date: 11/17/2018 (Discontinued) methylphenidate (RITALIN) 20 mg tablet Dose: 20 mg NEEDED Take at approx. 3-4 pm. Starting date: 11/17/2018 Ending date: 12/18/2018 (Discontinued) methylphenidate (RITALIN) 20 mg tablet Dose: 20 mg NEEDED Take at approx. 3-4 pm. Starting date: 12/18/2018 Ending date: 01/19/2019 (Discontinued) methylphenidate (RITALIN) 20 mg tablet Dose: 20 mg NEEDED Take at approx. 3-4 pm. Starting date: 01/19/2019 Ending date: 02/17/2019 (Discontinued) methylphenidate (RITALIN) 20 mg tablet Dose: 20 mg NEEDED Take at approx. 3-4 pm. Starting date: 02/18/2019 Ending date: 03/18/2019 (Discontinued) methylphenidate (RITALIN) 20 mg tablet Dose: 20 mg NEEDED Take at approx. 3-4 pm. Starting date: 03/18/2019 Ending date: 04/13/2019 (Discontinued) methylphenidate (RITALIN) 20 mg tablet Dose: 20 mg NEEDED Take at approx. 3-4 pm. Starting date: 04/13/2019 Ending date: 07/15/2019 (Discontinued) methylphenidate (RITALIN) 20 mg tablet Dose: 20 mg NEEDED Take at approx. 3-4 pm. Starting date: 05/17/2019 Ending date: 06/16/2019 (Discontinued) methylphenidate (RITALIN) 20 mg tablet Dose: 20 mg NEEDED Take at approx. 3-4 pm. Starting date: 06/17/2019 Ending date: 07/15/2019 (Discontinued) methylphenidate (RITALIN) 20 mg tablet Dose: 20 mg NEEDED Take at approx. 3-4 pm. Starting date: 07/15/2019 Ending date: 08/20/2019 (Discontinued) methylphenidate (RITALIN) 20 mg tablet Dose: 20 mg NEEDED Take at approx. 3-4 pm. Starting date: 08/20/2019 Ending date: 09/17/2019 (Discontinued) methylphenidate (RITALIN) 20 mg tablet Dose: 20 mg NEEDED Take at approx. 3-4 pm. Starting date: 09/17/2019 Ending date: 10/19/2019 (Discontinued) methylphenidate (RITALIN) 20 mg tablet Dose: 20 mg NEEDED Take at approx. 3-4 pm. Starting date: 10/19/2019 Ending date: 11/17/2019 (Discontinued) methylphenidate (RITALIN) 20 mg tablet Dose: 20 mg NEEDED Take at approx. 3-4 pm. Starting date: 11/18/2019 Ending date: 12/22/2019 (Discontinued) methylphenidate (RITALIN) 20 mg tablet Dose: 20 mg NEEDED Take at approx. 3-4 pm. Starting date: 12/23/2019 Ending date: 01/28/2020 (Discontinued) methylphenidate (RITALIN) 20 mg tablet Dose: 20 mg NEEDED Take at approx. 3-4 pm. Starting date: 01/28/2020 Ending date: 03/01/2020 (Discontinued) methylphenidate (RITALIN) 20 mg tablet Dose: 20 mg NEEDED Take at approx. 3-4 pm. Starting date: 03/02/2020 Ending date: 04/07/2020 (Discontinued) methylphenidate (RITALIN) 20 mg tablet Dose: 20 mg NEEDED Take at approx. 3-4 pm. Starting date: 04/07/2020 Ending date: 05/12/2020 (Discontinued) methylphenidate (RITALIN) 20 mg tablet Dose: 20 mg NEEDED Take at approx. 3-4 pm. Starting date: 05/12/2020 Ending date: 06/16/2020 (Discontinued) methylphenidate (RITALIN) 20 mg tablet Dose: 20 mg NEEDED Take at approx. 3-4 pm. Starting date: 06/16/2020 Ending date: 07/21/2020 (Discontinued) methylphenidate (RITALIN) 20 mg tablet Dose: 20 mg NEEDED Take at approx. 3-4 pm. Starting date: 07/21/2020 Ending date: 08/29/2020 (Discontinued) methylphenidate (RITALIN) 20 mg tablet Dose: 20 mg NEEDED Take at approx. 3-4 pm. Starting date: 08/29/2020 Ending date: 10/10/2020 (Discontinued) methylphenidate (RITALIN) 20 mg tablet Dose: 20 mg NEEDED Take at approx. 3-4 pm. Starting date: 10/10/2020 Ending date: 11/18/2020 (Discontinued) methylphenidate (RITALIN) 20 mg tablet Dose: 20 mg NEEDED Take at approx. 3-4 pm. Starting date: 11/20/2020 Ending date: 2020 (Discontinued) methylphenidate (RITALIN) 20 mg tablet Dose: 20 mg NEEDED Take at approx. 3-4 pm. Starting date: 01/02/2021 Ending date: 02/10/2021 (Discontinued) methylphenidate (RITALIN) 20 mg tablet Dose: 20 mg NEEDED Take at approx. 3-4 pm. Starting date: 02/13/2021 Ending date: 03/17/2021 (Discontinued) methylphenidate (RITALIN) 20 mg tablet Dose: 20 mg NEEDED Take at approx. 3-4 pm. Starting date: 03/17/2021 Ending date: 05/03/2021 (Discontinued) methylphenidate (RITALIN) 20 mg tablet Dose: 20 mg NEEDED Take at approx. 3-4 pm. Starting date: 05/03/2021 Ending date: 06/13/2021 (Discontinued) methylphenidate (RITALIN) 20 mg tablet Dose: 20 mg NEEDED Take at approx. 3-4 pm. Starting date: 06/14/2021 Ending date: 07/12/2021 (Discontinued) methylphenidate (RITALIN) 20 mg tablet Dose: 20 mg NEEDED Take at approx. 3-4 pm. Starting date: 07/12/2021 Ending date: 08/14/2021 (Discontinued) methylphenidate (RITALIN) 20 mg tablet Dose: 20 mg NEEDED Take at approx. 3-4 pm. Starting date: 08/14/2021 Ending date: 09/11/2021 (Discontinued) methylphenidate (RITALIN) 20 mg tablet Dose: 20 mg NEEDED Take at approx. 3-4 pm. Starting date: 09/11/2021 Ending date: 10/09/2021 (Discontinued) methylphenidate (RITALIN) 20 mg tablet Dose: 20 mg NEEDED Take at approx. 3-4 pm. Starting date: 10/09/2021 Ending date: 11/06/2021 (Discontinued) methylphenidate (RITALIN) 20 mg tablet Dose: 20 mg NEEDED Take at approx. 3-4 pm. Starting date: 11/07/2021 Ending date: 12/07/2021 (Discontinued) methylphenidate (RITALIN) 20 mg tablet Dose: 20 mg NEEDED Take at approx. 3-4 pm. Starting date: 12/07/2021 Ending date: 01/04/2022 (Discontinued) methylphenidate (RITALIN) 20 mg tablet Dose: 20 mg NEEDED Take at approx. 3-4 pm. Starting date: 01/04/2022 Ending date: 01/30/2022 (Discontinued) methylphenidate (RITALIN) 20 mg tablet Dose: 20 mg NEEDED Take at approx. 3-4 pm. Starting date: 01/30/2022 Ending date: 03/05/2022 (Discontinued) methylphenidate (RITALIN) 20 mg tablet Dose: 20 mg NEEDED Take at approx. 3-4 pm. Starting date: 03/05/2022 Ending date: 04/04/2022 (Discontinued) methylphenidate (RITALIN) 20 mg tablet Dose: 20 mg NEEDED Take at approx. 3-4 pm. Starting date: 04/04/2022 Ending date: 05/09/2022 (Discontinued) methylphenidate (RITALIN) 20 mg tablet Dose: 20 mg NEEDED Take at approx. 3-4 pm. Starting date: 05/09/2022 Ending date: 06/06/2022 (Discontinued) methylphenidate (RITALIN) 20 mg tablet Dose: 20 mg NEEDED Take at approx. 3-4 pm. Starting date: 06/06/2022 Ending date: 07/03/2022 (Discontinued) methylphenidate (RITALIN) 20 mg tablet Dose: 20 mg NEEDED Take at approx. 3-4 pm. Starting date: 07/04/2022 Ending date: 08/05/2022 (Discontinued) methylphenidate (RITALIN) 20 mg tablet Dose: 20 mg NEEDED Take at approx. 3-4 pm. Starting date: 08/06/2022 Ending date: 09/05/2022 METHYLPHENIDATE 10 MG TAB Dose: one half (1/2) to one(1) tablet twice a day Starting date: 02/10/2006 Ending date: 03/05/2006 (Discontinued) Methylphenidate HCl (CONCERTA) 36 mg ORAL CR tablet Dose: 2 po each am Starting date: 04/16/2010 Ending date: 05/10/2010 (Discontinued) Methylphenidate HCl (CONCERTA) 36 mg ORAL CR tablet Dose: 2 po each am Starting date: 05/10/2010 Ending date: 06/05/2010 (Discontinued) Methylphenidate HCl (CONCERTA) 36 mg ORAL CR tablet Dose: 2 po each am Starting date: 06/05/2010 Ending date: 06/29/2010 (Discontinued) Methylphenidate HCl (CONCERTA) 36 mg ORAL CR tablet Dose: 2 po each am Starting date: 06/29/2010 Ending date: 07/26/2010 (Discontinued) Methylphenidate HCl (CONCERTA) 36 mg ORAL CR tablet Dose: 2 po each am Starting date: 07/26/2010 Ending date: 08/17/2010 (Discontinued) Methylphenidate HCl (CONCERTA) 36 mg ORAL CR tablet Dose: 2 po each am Starting date: 08/17/2010 Ending date: 09/16/2010 Methylphenidate HCl (CONCERTA) 36 mg ORAL CR tablet Dose: 72 mg EVERY MORNING Starting date: 09/11/2010 Ending date: 10/04/2010 (Discontinued) Methylphenidate HCl (CONCERTA) 36 mg ORAL CR tablet Dose: 72 mg EVERY MORNING Starting date: 10/04/2010 Ending date: 10/27/2010 (Discontinued) Methylphenidate HCl (CONCERTA) 36 mg ORAL CR tablet Dose: 72 mg EVERY MORNING Starting date: 10/27/2010 Ending date: 11/22/2010 (Discontinued) Methylphenidate HCl (CONCERTA) 36 mg ORAL CR tablet Dose: 72 mg EVERY MORNING Starting date: 11/22/2010 Ending date: 12/17/2010 (Discontinued) Methylphenidate HCl (CONCERTA) 36 mg ORAL CR tablet Dose: 72 mg EVERY MORNING Starting date: 12/17/2010 Ending date: 01/10/2011 (Discontinued) Methylphenidate HCl (CONCERTA) 36 mg ORAL CR tablet Dose: 72 mg EVERY MORNING Starting date: 01/10/2011 Ending date: 02/04/2011 (Discontinued) Methylphenidate HCl (CONCERTA) 36 mg ORAL CR tablet Dose: 72 mg EVERY MORNING Starting date: 02/04/2011 Ending date: 03/06/2011 (Discontinued) methylphenidate ER (CONCERTA) 36 mg ORAL CR tablet Dose: 72 mg EVERY MORNING Starting date: 02/28/2011 Ending date: 03/22/2011 (Discontinued) methylphenidate ER (CONCERTA) 36 mg ORAL CR tablet Dose: 72 mg EVERY MORNING Starting date: 03/22/2011 Ending date: 04/16/2011 (Discontinued) methylphenidate ER (CONCERTA) 36 mg ORAL CR tablet Dose: 72 mg EVERY MORNING Starting date: 04/16/2011 Ending date: 05/10/2011 (Discontinued) methylphenidate ER (CONCERTA) 36 mg ORAL CR tablet Dose: 72 mg EVERY MORNING Starting date: 05/10/2011 Ending date: 05/28/2011 (Discontinued) methylphenidate hcl(CONCERTA 54 MG 24 HR TAB) Dose: 1 po each am Starting date: 01/11/2008 Ending date: 02/13/2008 (Discontinued) methylphenidate hcl(CONCERTA 54 MG 24 HR TAB) Dose: 1 po each am Starting date: 02/13/2008 Ending date: 03/11/2008 (Discontinued) methylphenidate hcl(CONCERTA 54 MG 24 HR TAB) Dose: 1 po each am Starting date: 03/11/2008 Ending date: 04/09/2008 (Discontinued) methylphenidate hcl(CONCERTA 54 MG 24 HR TAB) Dose: 1 po each am Starting date: 04/09/2008 Ending date: 05/06/2008 (Discontinued) methylphenidate hcl(CONCERTA 54 MG 24 HR TAB) Dose: 1 po each am Starting date: 05/06/2008 Ending date: 06/03/2008 (Discontinued) methylphenidate hcl(CONCERTA 54 MG 24 HR TAB) Dose: 1 po each am Starting date: 06/03/2008 Ending date: 06/22/2008 (Discontinued) methylphenidate hcl(CONCERTA 54 MG 24 HR TAB) Dose: 1 po each am Starting date: 06/22/2008 Ending date: 07/30/2008 (Discontinued) methylphenidate hcl(CONCERTA 54 MG 24 HR TAB) Dose: 1 po each am Starting date: 07/30/2008 Ending date: 08/23/2008 (Discontinued) methylphenidate hcl(CONCERTA 54 MG 24 HR TAB) Dose: 1 po each am Starting date: 08/23/2008 Ending date: 09/22/2008 (Discontinued) methylphenidate hcl(RITALIN 20 MG TAB) Dose: 1 po approx. 3-4 pm prn Starting date: 04/14/2009 Ending date: 05/11/2009 (Discontinued) methylphenidate hcl(RITALIN 20 MG TAB) Dose: 1 po approx. 3-4 pm prn Starting date: 05/11/2009 Ending date: 06/06/2009 (Discontinued) methylphenidate hcl(RITALIN 20 MG TAB) Dose: 1 po approx. 3-4 pm prn Starting date: 06/06/2009 Ending date: 07/05/2009 (Discontinued) methylphenidate hcl(RITALIN 20 MG TAB) Dose: 1 po approx. 3-4 pm prn Starting date: 07/05/2009 Ending date: 08/03/2009 (Discontinued) methylphenidate hcl(RITALIN 20 MG TAB) Dose: 1 po approx. 3-4 pm prn Starting date: 08/03/2009 Ending date: 08/30/2009 (Discontinued) methylphenidate hcl(RITALIN 20 MG TAB) Dose: 1 po approx. 3-4 pm prn Starting date: 08/30/2009 Ending date: 09/25/2009 (Discontinued) methylphenidate hcl(RITALIN 20 MG TAB) Dose: 1 po approx. 3-4 pm prn Starting date: 09/25/2009 Ending date: 10/23/2009 (Discontinued) methylphenidate hcl(RITALIN 20 MG TAB) Dose: 1 po approx. 3-4 pm prn Starting date: 10/23/2009 Ending date: 11/16/2009 (Discontinued) methylphenidate hcl(RITALIN 20 MG TAB) Dose: 1 po approx. 3-4 pm prn Starting date: 11/16/2009 Ending date: 12/15/2009 (Discontinued) methylphenidate hcl(RITALIN 20 MG TAB) Dose: 1 po approx. 3-4 pm prn Starting date: 12/15/2009 Ending date: 01/08/2010 (Discontinued) methylphenidate hcl(RITALIN 20 MG TAB) Dose: 1 po approx. 3-4 pm prn Starting date: 01/08/2010 Ending date: 02/05/2010 (Discontinued) methylphenidate hcl(RITALIN 20 MG TAB) Dose: 1 po approx. 3-4 pm prn Starting date: 02/05/2010 Ending date: 03/01/2010 (Discontinued) methylphenidate hcl(RITALIN 20 MG TAB) Dose: 1 po approx. 3-4 pm prn Starting date: 03/01/2010 Ending date: 03/20/2010 (Discontinued) methylphenidate hcl(RITALIN 20 MG TAB) Dose: 1 po approx. 3-4 pm prn Starting date: 03/20/2010 Ending date: 04/16/2010 (Discontinued) RITALIN 10 MG TAB Dose: Take one(1) tablet daily at 3:30 pm Starting date: 09/14/2005 Ending date: 10/21/2005 (Discontinued) RITALIN 10 MG TAB Dose: Take one(1) tablet daily at 3:30 pm Starting date: 10/21/2005 Ending date: 10/31/2005 (Discontinued) RITALIN 10 MG TAB Dose: Take one(1) tablet po at 7 am,12 noon and then 4 pm Starting date: 10/31/2005 Ending date: 12/13/2005 (Discontinued) RITALIN 10 MG TAB Dose: Take one(1) tablet po at 7 am,12 noon and then 4 pm Starting date: 12/13/2005 Ending date: 01/08/2006 (Discontinued) RITALIN 10 MG TAB Dose: 1 tab po q7 am and 12 noon and then 4 pm Starting date: 01/08/2006 Ending date: 03/05/2006 (Discontinued) RITALIN 5 MG TAB Dose: 1 -2 po at 3pm as needed Starting date: 03/05/2006 Ending date: 03/27/2006 (Discontinued) RITALIN 5 MG TAB Dose: 1 -2 po at 3pm as needed Starting date: 03/27/2006 Ending date: 04/15/2006 (Discontinued) RITALIN 5 MG TAB Dose: 1 -2 po at 3pm as needed Starting date: 04/15/2006 Ending date: 05/15/2006 RITALIN 5 MG TAB Dose: Take 1 or 2 tablet at 3pm prn Starting date: 07/21/2006 Ending date: 08/19/2006 (Discontinued) RITALIN 5 MG TAB Dose: Take 1 or 2 tablet at 3pm prn Starting date: 08/19/2006 Ending date: 10/27/2006 (Discontinued) methylphenidate (RITALIN) 5 mg ORAL Tab Dose: Take 1 or 2 tablet at 3pm prn Starting date: 10/27/2006 Ending date: 11/20/2006 (Discontinued) methylphenidate (RITALIN) 5 mg ORAL Tab Dose: Take 1 or 2 tablet at 3pm prn Starting date: 11/20/2006 Ending date: 12/25/2006 (Discontinued) methylphenidate (RITALIN) 5 mg ORAL Tab Dose: Take 1 or 2 tablet at 3pm prn Starting date: 12/25/2006 Ending date: 01/30/2007 (Discontinued) methylphenidate (RITALIN) 5 mg ORAL Tab Dose: Take 1 or 2 tablet at 3pm prn Starting date: 01/30/2007 Ending date: 02/28/2007 (Discontinued) methylphenidate (RITALIN) 5 mg ORAL Tab Dose: Take 1 or 2 tablet at 3pm prn Starting date: 02/28/2007 Ending date: 03/26/2007 (Discontinued) methylphenidate (RITALIN) 5 mg ORAL Tab Dose: Take 1 or 2 tablet at 3pm prn Starting date: 03/26/2007 Ending date: 04/29/2007 (Discontinued) methylphenidate (RITALIN) 5 mg ORAL Tab Dose: Take 1 or 2 tablet at 3pm prn Starting date: 04/29/2007 Ending date: 06/01/2007 (Discontinued) methylphenidate hcl(RITALIN 5 MG TAB) Dose: Take 1 or 2 tablet at 3pm prn Starting date: 06/01/2007 Ending date: 06/25/2007 (Discontinued) methylphenidate hcl(RITALIN 5 MG TAB) Dose: Take 1 or 2 tablet at 3pm prn Starting date: 06/25/2007 Ending date: 07/22/2007 (Discontinued) methylphenidate hcl(RITALIN 5 MG TAB) Dose: Take 1 or 2 tablet at 3pm prn Starting date: 06/25/2007 Ending date: 07/25/2007 methylphenidate hcl(RITALIN 5 MG TAB) Dose: Take 1 or 2 tablet at 3pm prn Starting date: 07/22/2007 Ending date: 08/27/2007 (Discontinued) methylphenidate hcl(RITALIN 5 MG TAB) Dose: Take 1 or 2 tablet at 3pm prn Starting date: 08/27/2007 Ending date: 10/14/2007 (Discontinued) methylphenidate hcl(RITALIN 5 MG TAB) Dose: Take 1 or 2 tablet at 3pm prn Starting date: 10/14/2007 Ending date: 11/11/2007 (Discontinued) methylphenidate hcl(RITALIN 5 MG TAB) Dose: Take 1 or 2 tablet at 3pm prn Starting date: 11/11/2007 Ending date: 12/14/2007 (Discontinued) methylphenidate hcl(RITALIN 5 MG TAB) Dose: Take 1 or 2 tablet at 3pm prn Starting date: 12/14/2007 Ending date: 01/05/2008 (Discontinued) methylphenidate hcl(RITALIN 5 MG TAB) Dose: Take 1 or 2 tablet at 3pm prn Starting date: 01/05/2008 Ending date: 01/11/2008 (Discontinued) methylphenidate hcl(RITALIN 5 MG TAB) Dose: Take 1 or 2 tablet at 3pm prn Starting date: 01/11/2008 Ending date: 02/13/2008 (Discontinued) methylphenidate hcl(RITALIN 5 MG TAB) Dose: Take 1 or 2 tablet at 3pm prn Starting date: 02/13/2008 Ending date: 03/07/2008 (Discontinued) methylphenidate hcl(RITALIN 5 MG TAB) Dose: Take 1 or 2 tablet at 3pm prn Starting date: 03/07/2008 Ending date: 05/06/2008 (Discontinued) methylphenidate hcl(RITALIN 5 MG TAB) Dose: Take 1 or 2 tablet at 3pm prn Starting date: 05/06/2008 Ending date: 06/03/2008 (Discontinued) methylphenidate hcl(RITALIN 5 MG TAB) Dose: Take 1 or 2 tablet at 3pm prn Starting date: 06/03/2008 Ending date: 06/22/2008 (Discontinued) methylphenidate hcl(RITALIN 5 MG TAB) Dose: Take 1 or 2 tablet at 3pm prn Starting date: 06/22/2008 Ending date: 07/30/2008 (Discontinued) methylphenidate hcl(RITALIN 5 MG TAB) Dose: Take 1 or 2 tablet at 3pm prn Starting date: 07/30/2008 Ending date: 08/23/2008 (Discontinued) methylphenidate hcl(RITALIN 5 MG TAB) Dose: Take 1 or 2 tablet at 3pm prn Starting date: 08/23/2008 Ending date: 09/22/2008 (Discontinued) methylphenidate hcl(RITALIN 5 MG TAB) Dose: Take 1 or 2 tablet at 3pm prn Starting date: 09/22/2008 Ending date: 10/21/2008 (Discontinued) methylphenidate hcl(RITALIN 5 MG TAB) Dose: Take 1 or 2 tablet at 3pm prn Starting date: 10/21/2008 Ending date: 11/18/2008 (Discontinued) methylphenidate hcl(RITALIN 5 MG TAB) Dose: Take 1 or 2 tablet at 3pm prn Starting date: 11/18/2008 Ending date: 12/16/2008 (Discontinued) methylphenidate hcl(RITALIN 5 MG TAB) Dose: Take 1 or 2 tablet at 3pm prn Starting date: 12/16/2008 Ending date: 01/13/2009 (Discontinued) methylphenidate hcl(RITALIN 5 MG TAB) Dose: Take 1 or 2 tablet at 3pm prn Starting date: 01/13/2009 Ending date: 02/14/2009 (Discontinued) methylphenidate hcl(RITALIN 5 MG TAB) Dose: Take 1 or 2 tablet at 3pm prn Starting date: 02/14/2009 Ending date: 03/13/2009 (Discontinued) methylphenidate hcl(RITALIN 5 MG TAB) Dose: Take 1 or 2 tablet at 3pm prn Starting date: 03/13/2009 Ending date: 04/05/2009 (Discontinued) methylphenidate hcl(RITALIN 5 MG TAB) Dose: Take 1 or 2 tablet at 3pm prn Starting date: 04/05/2009 Ending date: 04/14/2009 (Discontinued) Medication marked as long-term Prior RLS Medications (last 20 years) Some values may be hidden. Unless noted otherwise, only the newest values recorded on each date are displayed. RLS Medications HYDROcodone 5 mg - acetaminophen 325 mg tablet (NORCO) Dose: 1-2 tablet ONCE Give 1 tab for moderate pain Give 2 tabs for severe pain Starting date: 07/05/2022 Ending date: 07/05/2022 (Discontinued) morphine 4 mg injection Dose: 4 mg X (PACU ONLY) PRN 2nd Line Therapy for Breakthrough Pain Maximum TOTAL DOSE from ALL orders = 0.15 mg/kg, not to exceed 10 mg May give every 10 minutes as needed Starting date: 05/12/2015 Ending date: 05/12/2015 (Discontinued) Prior Insomnia Medications (last 20 years) Some values may be hidden. Unless noted otherwise, only the newest values recorded on each date are displayed. Insomnia Medications ESCITALOPRAM OXALATE (LEXAPRO ORAL) Dose: Take by mouth. Starting date: Ending date: 03/07/2015 (Discontinued) ESCITALOPRAM OXALATE (LEXAPRO ORAL) Dose: Take 75 mg by mouth. Starting date: Ending date: 11/08/2015 (Discontinued) FLUoxetine (PROZAC) 20 mg capsule Dose: 20 mg DAILY Starting date: 09/24/2013 Ending date: 06/09/2014 (Discontinued) midazolam (PF) injection (VERSED) Dose: Starting date: 07/05/2022 Ending date: 07/06/2022 (Discontinued) PAROXETINE HCL (PAXIL ORAL) Dose: Take by mouth. (Patient not taking as of 02/20/2022 6:09 PM) Starting date: Ending date: 03/12/2022 (Discontinued) Review of Systems GENERAL: no weaknesses HEENT: ENT: denies nasal congestion CV: no SOB, chest pain RESP: no chronic cough, wheezing GI: no reflux, constipation MSK: no joint pain SKIN: no rash NEURO: no LOC, neurologically at baseline SOCIAL HISTORY: Social History Tobacco Use Smoking status: Former Types: Cigarettes Quit date: 2021 Years since quittin.1 Smokeless tobacco: Never Tobacco comments: Pt smoked 3 cigarettes daily x 2 months, quit 2021 Vaping Use Vaping Use: current everyday user Substance Use Topics Alcohol use: Not Currently Comment: occasional Drug use: No FAMILY HISTORY: FAMILY HISTORY Problem Relation Age of Onset other (Marfan's) Mother None Father other (Marfan's) Brother other (mood issues) Brother Osteoporosis Maternal Grandmother other (Marfan's) Maternal Grandfather None Paternal Grandmother Heart Paternal Grandfather pace maker No Ocular Disease Other There is a family history of: Sleep apnea. Relative: none PHYSICAL EXAMINATION: Vital Signs: BP 120/82 Pulse 93 Temp 36.4 C (97.6 F) Wt 131.5 kg (290 lb) LMP 08/26/2022 (Approximate) SpO2 98% BMI 39.88 kg/m GENERAL: well appearing, awake, alert, and normally responsive SKIN: no rashes, lesions, or erythema HEAD: NC/AT EYES: conjunctivae/corneas clear, anicteric sclera, EOMI EARS: external ears normal. ENT : Nasal congestion absent, Nasal valve incompetence absent. Posterior airspace: Arias tongue position 4, retrognathia absent. Overbite absent. High arched palate absent. Tongue scalloping/ridging absent. Uvula: midline, normal size Chest: Regular S1 and S2, Lungs clear to auscultation EXTREMITIES: no cyanosis, clubbing, or edema NEUROLOGICAL: alert, oriented, appropriate for age; CN grossly intact; No weakness IMPRESSION/PLAN: R29.818 Suspected sleep apnea (primary encounter diagnosis) R53.81, R53.83 Malaise and fatigue R06.83 Snoring R53.82 Chronic fatigue Katie Forde is a 21 year old female with past medical history of migraine, Marfan syndrome, ADHD, depression, anxiety, obesity (BMI 40), hypovitaminosis D presenting with sleep concerns of suspected sleep disordered breathing. Sleep disordered breathing symptoms: Snoring, fatigue, daytime napping, may have AM SOTO. Given the patient's history of Marfan syndrome, there is an increased likelihood of airway flexibility perhaps predisposing the patient to sleep disordered breathing. Furthermore, given the risk of cardiac complications with Marfan syndrome and the increased risk of CVA with moderate or severe ESTEBAN, would be advised to diagnose and treat any sleep apnea. - Polysomnogram (PSG) to evaluate for obstructive sleep apnea. - Split at AHI > 15 to CPAP 5cmH2O - Discussed with the patient the possible diagnosis, causes, and conditions associated with obstructive sleep apnea. - Avoid driving when drowsy. Recommend that if you are dozing off while driving, that you do not drive until your sleepiness is appropriately treated. -Encouraged healthy lifestyle with adequate sleep ( 7-9 hours per night), diet and exercise. - Results are usually available within 7-10 business days. If you do not hear from us within 1-2 weeks after testing, please contact us directly. - Follow up visit in 2-3 weeks. Please schedule this appointment now to ensure your preferred time and location. Karlos Jett MD Staff, [facility] Appt: [phone] Mail: [address] [place] [address] Activity Duration Exam room 2 minutes Exam room 27 minutes Current session 1 minute Total time: 31 minutes* *Based only on time spent in the patient's chart documented in this encounter [facility] 09-05-2022 Note [facility] 09-05-2022 Instructions ADITYA Swann - 09/05/2022 11:23 AM EST PHARYNGITIS PATIENT INSTRUCTIONS DESCRIPTION: Inflammation and infection of the pharynx that can be caused by a variety of germs. SIGNS AND SYMPTOMS: -Sore throat. -Swallowing difficulty. -Tickle or lump in the throat. -Fever. -Swollen glands in the neck (sometimes). -Throat may be red or covered with a grayish membrane (sometimes). -Generalized aching. CAUSES: Infection from bacteria, viruses or fungi. PREVENTIVE MEASURES: -Avoid close contact with anyone with a sore throat. -Keep immunizations, including diphtheria, up to date. TREATMENT: -Laboratory throat culture and blood count may be done to determine type of infection. -Home care is usually sufficient. -Use gargles to relieve throat pain. Prepare double strength tea, hot or cold, or a salt-water solution (1 teaspoon salt in 8 oz. warm water). Use to gargle as often as you wish. -Use a cool-mist ultrasonic humidifier to increase air moisture. This will relieve the dry, tight feeling in the throat. Clean humidifier daily. -If the glands are large and tender, apply moist, warm soaks at least 4 times a day for 30 to 60 minutes. The compresses will be more effective if they are kept warm. Be careful not to burn the skin. -Replace your toothbrush. It may be harboring germs. -Until infection is gone, don't share washcloths; or food. MEDICATIONS: -For minor discomfort you may use non-prescription drugs such as acetaminophen. Don't give aspirin to a child for any viral illness. -Non-prescription throat lozenges may help ease discomfort. -Antibiotics or antifungal agents to fight bacterial or fungal infections. Be sure to finish entire course of prescribed antibiotics to avoid complications. ACTIVITY: Limited activity is necessary until symptoms disappear. DIET: Extra fluids are necessary. Drink at least 8 glasses of fluid daily, more for high fevers. If swallowing solid food is painful, try a liquid or soft diet for a few days. NOTIFY OFFICE: -The following occur during treatment: Breathing or swallowing difficulty. Fever; severe headache. Thick mucus drainage from the nose. Productive cough that is discolored. Skin rash. Dark urine. Chest pain. documented in this encounter [facility] 09-05-2022 History of Present illness Narrative This note was created using [employer]. Subjective Katie Forde is a 21 year old female. HPI 21-year-old female presents for sore throat. Patient states she has had sore throat for about a week. Yesterday she fell about lightheaded. This is improved today. She has had no fevers. No vomiting or diarrhea. No chest pain or shortness of breath. She does report that she vapes. She has not had a cough. No sick contacts that she is aware of. 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 MEDICATIONS amphetamine-dextroamphetamine XR (ADDERALL XR) 30 mg 24 hr capsule Take 1 capsule by mouth every morning for 30 days. ergocalciferol 50,000 unit capsule (VITAMIN D2, DRISDOL) Take 1 capsule by mouth one time a week. methylphenidate (RITALIN) 20 mg tablet Take 1 tablet by mouth as needed for up to 30 days. Take at approx. 3-4 pm. medroxyPROGESTERone (PROVERA) 10 mg tablet Take 1 tablet by mouth once daily. for the -10th of each month omeprazole (PRILOSEC) 20 mg capsule Take 1 capsule by mouth once daily. PNV No.40-Iron Fum-FA Cmb No.1 (PNV-SELECT) 27-1 mg tab Take 1 tablet by mouth once daily. (Patient not taking: Reported on 09/05/2022) FAMILY HISTORY Problem Relation Age of Onset other (Marfan's) Mother None Father other (Marfan's) Brother other (mood issues) Brother Osteoporosis Maternal Grandmother other (Marfan's) Maternal Grandfather None Paternal Grandmother Heart Paternal Grandfather pace maker No Ocular Disease Other Social History Tobacco Use Smoking status: Former Types: Cigarettes Quit date: 2021 Years since quittin.1 Smokeless tobacco: Never Tobacco comments: Pt smoked 3 cigarettes daily x 2 months, quit 2021 Vaping Use Vaping Use: current everyday user Substance Use Topics Alcohol use: Not Currently Comment: occasional Drug use: No Review of Systems Constitutional: Negative for chills and fever. HENT: Positive for sore throat. Negative for congestion and ear pain. Respiratory: Negative for cough and shortness of breath. Cardiovascular: Negative for chest pain. Gastrointestinal: Negative for diarrhea and vomiting. Objective BP 118/66 Pulse 104 Temp 37.2 C (98.9 F) (Tympanic) Resp 18 Wt 131.4 kg (289 lb 9.6 oz) LMP 08/26/2022 (Approximate) SpO2 98% BMI 39.83 kg/m Physical Exam Vitals and nursing note reviewed. Constitutional: General: She is not in acute distress. Appearance: Normal appearance. She is not toxic-appearing. HENT: Right Ear: Tympanic membrane and ear canal normal. Left Ear: Tympanic membrane and ear canal normal. Nose: Nose normal. Mouth/Throat: Mouth: Mucous membranes are moist. Pharynx: Uvula midline. Posterior oropharyngeal erythema present. No oropharyngeal exudate. Tonsils: No tonsillar exudate. 0 on the right. 0 on the left. Eyes: Conjunctiva/sclera: Conjunctivae normal. Cardiovascular: Rate and Rhythm: Normal rate and regular rhythm. Pulmonary: Effort: Pulmonary effort is normal. Breath sounds: Normal breath sounds. Musculoskeletal: Cervical back: Full passive range of motion without pain and neck supple. Lymphadenopathy: Cervical: No cervical adenopathy. Neurological: Mental Status: She is alert. Assessment and Plan ASSESSMENT/PLAN: 1. Sore throat - ICD9: 462, ICD10: J02.9 - suspect viral - Alere Strep Test negative, no culture pending - Discussed supportive care treatment with fluids, rest and analgesia. - STREP A MOLECULAR (POC) Diagnosis and treatment plan were discussed and questions were answered to the patient's satisfaction. Pt acknowledged understanding of concepts and follow up plan. Specific signs and symptoms that would indicate the need for higher level of care were discussed in detail warranting prompt ER evaluation. ADITYA Swann documented in this encounter [facility] 09-03-2022 Miscellaneous Notes Patient scheduled. Zuleika Harkins Pt. Notified that the molecular testing I ordered did not reveal any evidence of an underlying lymphoproliferative disorder or myeloproliferative disorder. Dr. Burris would like to see her for an office visit with CBC in about 4 months. Pt. Voiced understanding. Dianne Bender LPN Can let her know that the molecular testing I ordered did not reveal any evidence of an underlying lymphoproliferative disorder or myeloproliferative disorder. I see that she is being referred for sleep study. That is great. I would like to see her for an office visit with CBC in about 4 months. Russell Burris DO documented in this encounter [facility] 09-02-2022 Miscellaneous Notes Patient spoke with nurse regarding results this morning. Tracy Carreon LPN documented in this encounter [facility] 08-27-2022 Miscellaneous Notes Two are still in process. Will contact pt after Dr Burris reviews them all. pt aware. More Dos Santos LPN Patient requesting lab results from 08/22. documented in this encounter [facility] 08-22-2022 Note [facility] 08-22-2022 History of Present illness Narrative Patient referred by Zuleika Perez PA-C for leukocytosis and thrombocytosis. The impression and plan will be communicated by way of the shared electronic record or faxed under separate cover letter. HPI: The patient is a 21-year-old female with a past medical history significant for Marfan syndrome, fatty infiltration of the liver and migraine headaches. Undergoing work up for fatty liver. Appetite-- I eat a lot even if not hungry. Weight stable to 01/2022. Frequent nausea. Takes PPI--controls reflux. Typically has diarrhea if eats greasy foods. No black or bloody stools. No abdominal pain--other than sporadic lower left costal pain in mid-axillary line. Fatigued for several months. Gets about 7-8 hours sleep a night. Feels groggy next day. Takes naps often. Mother says she snores loudly when sleeping on couch. Doesn't drive. Quit smoking about a year ago. Still vapes. No major childhood illnesses. No history of hospitalization. Frequent cough. Occasional sputum. No wheezing. No h/o hemoptysis. Dyspnea for stairs. Gets sternal pain about once a week--occurs when sitting or lying down. Hemp cream helps it resolve. If not Tylenol resolves it. Menses-- wonky. Length of menses varies 6-10 days. Passes small clots. Has a perceptible hole in her first right upper molar. Lower rear molars hurt. Has not seen dentist in a while. 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 EYE SURGERY HX 05/02/2015 detached retina EYE SURGERY HX 08/19/2018 right sided secondary lens implant LIVER BIOPSY 07/05/2022 PAST SURGICAL HISTORY OF sherwin eyes PAST SURGICAL HISTORY OF right leg broken-surgery ALLERGIES No Known Allergies Current Outpatient Medications Medication Sig amphetamine-dextroamphetamine XR (ADDERALL XR) 30 mg 24 hr capsule Take 1 capsule by mouth every morning for 30 days. ergocalciferol 50,000 unit capsule (VITAMIN D2, DRISDOL) Take 1 capsule by mouth one time a week. methylphenidate (RITALIN) 20 mg tablet Take 1 tablet by mouth as needed for up to 30 days. Take at approx. 3-4 pm. omeprazole (PRILOSEC) 20 mg capsule Take 1 capsule by mouth once daily. PNV No.40-Iron Fum-FA Cmb No.1 (PNV-SELECT) 27-1 mg tab Take 1 tablet by mouth once daily. medroxyPROGESTERone (PROVERA) 10 mg tablet Take 1 tablet by mouth once daily. for the - of each month fluticasone (FLONASE) 50 mcg/actuation nasal spray Use 2 Sprays in each nostril once daily. Rinse mouth after use. (Patient not taking: Reported on 07/17/2022) benzonatate (TESSALON PERLES) 100 mg capsule Take 2 capsules by mouth three times daily as needed. (Patient not taking: Reported on 07/17/2022) No current facility-administered medications for this visit. Social History Tobacco Use Smoking status: Former Types: Cigarettes Quit date: 2021 Years since quittin.1 Smokeless tobacco: Never Tobacco comments: Pt smoked 3 cigarettes daily x 2 months, quit 2021 Vaping Use Vaping Use: current everyday user Substance Use Topics Alcohol use: Not Currently Comment: occasional Drug use: No Family History Problem Relation Age of Onset other (Marfan's) Mother None Father other (Marfan's) Brother other (mood issues) Brother Osteoporosis Maternal Grandmother other (Marfan's) Maternal Grandfather None Paternal Grandmother Heart Paternal Grandfather pace maker No Ocular Disease Other ROS: Constitutional: Denies episodes of fever and night sweats. Neuro: Migraines--about once a week. Sporadic lightheaded when lies or sits down. Occasionally feels whole body tingles. HEENT: No recent change in voice, vision or hearing. Resp: See above. CVS: Denies exertional chest pain, PND, orthopnea and LE edema. Occasional sensation of pounding heart--watch says 200 bpm--no dizziness. Deep breath can make it stop suddenly. Happens about once a month or when stressed. GI: See above. : Denies dysuria or gross hematuria. Endo: Denies hot flashes. Denies polyuria and polydipsia. Denies heat and cold intolerance. Musculoskeletal: Denies bone, joint and muscular pain. LBP if sitting in certain position or walks distances. Derm: Denies rash. Heme: Denies unusual bleeding and unexplained bruising. Psych: Mood up and down. PHYSICAL EXAM: Vitals: Blood pressure 124/74, pulse 98, temperature 36.1 C (97 F), temperature source Temporal, height 181.6 cm (5' 11.5 ), weight 130.2 kg (287 lb), last menstrual period 06/18/2022, SpO2 96 %. Well-appearing and in no acute distress. EYES: Sclerae are anicteric bilaterally. ENT: Oral mucosa is unremarkable. Poor dentition. LYMPHATIC: There is no palpable cervical, supraclavicular or axillary adenopathy. RESPIRATORY: Inspiratory breath sounds are of normal intensity in all sylvester. No rales, wheezes or rhonchi. CARDIOVASCULAR: Rhythm is regular. ABDOMEN: The abdomen is nondistended. No organomegaly. No tenderness. Extremities: No swelling or edema. SKIN: No jaundice or rash. NEUROLOGIC: rags laborer II-XII are grossly intact. No focal motor weakness. LABORATORY DATA: Component Latest Ref Rng & Units 09/24/2013 04/22/2014 02/03/2017 08/07/2021 09/11/2021 06/28/2022 08/07/2022 WBC 3.70 - 11.00 k/uL 8.36 10.67 9.59 11.15 (H) 11.76 (H) 14.61 (H) 18.00 (H) RBC 3.90 - 5.20 m/uL 4.37 4.19 4.53 4.89 5.30 (H) 4.63 4.73 Hemoglobin 11.5 - 15.5 g/dL 13.8 13.3 13.8 14.3 15.4 14.0 14.4 Hematocrit 36.0 - 46.0 % 39.9 38.3 41.7 42.9 47.5 (H) 41.7 43.2 MCV 80.0 - 100.0 fL 91.3 (H) 91.4 92.1 87.7 89.6 90.1 91.3 MCH 26.0 - 34.0 pg 31.6 (H) 31.7 30.5 29.2 29.1 30.2 30.4 MCHC 30.5 - 36.0 g/dL 34.6 34.7 33.1 33.3 32.4 33.6 33.3 RDW-CV 11.5 - 15.0 % 12.5 12.5 12.6 12.2 12.8 12.1 12.5 Platelet Count 150 - 400 k/uL 413 (H) 416 (H) 428 (H) 568 (H) 573 (H) 555 (H) 563 (H) MPV 9.0 - 12.7 fL 10.6 10.1 10.4 10.3 10.2 10.2 10.1 Neut% % 60.1 54.1 57.6 49.2 59.0 Abs Neut (ANC) 1.45 - 7.50 k/uL 6.42 5.19 6.42 5.79 10.62 (H) Lymph% % 30.6 35.7 35.5 41.6 35.0 Abs Lymph 1.00 - 4.00 k/uL 3.26 3.42 3.96 4.89 (H) 6.30 (H) Boyd% % 8.0 7.9 4.9 6.3 5.0 Abs Boyd <0.87 k/uL 0.85 0.76 0.55 0.74 0.90 (H) Eosin% % 0.7 1.5 1.3 1.4 0.0 Abs Eosin <0.46 k/uL 0.08 0.14 0.14 0.16 0.00 Baso% % 0.6 0.8 0.7 1.1 1.0 Abs Baso <0.11 k/uL 0.06 0.08 0.08 0.13 (H) 0.18 (H) Immature Gran % % 0.4 IMMATURE GRANS (ABS) <0.10 k/uL 0.05 NRBC /100 WBC 0.0 0.0 Absolute nRBC <0.01 k/uL 0.00 <0.01 <0.01 <0.01 <0.01 DTYPE Auto Manual Platelet Estimate Increased Red Cell Morph Reviewed: unremarkable Nucleated Reds 0 /100 WBC 0.0 0.0 Diff Type Auto Diff Auto Diff Auto Diff Component Latest Ref Rng & Units 08/07/2022 Albumin 3.9 - 4.9 g/dL 4.4 Bilirubin, Total 0.2 - 1.3 mg/dL 0.3 Bilirubin, Conjug <0.2 mg/dL <0.2 Alkaline Phosphatase 34 - 123 U/L 75 AST 13 - 35 U/L 70 (H) ALT 7 - 38 U/L 78 (H) Protein, Total 6.3 - 8.0 g/dL 7.9 ASSESSMENT/PLAN: (D72.829) Leukocytosis, unspecified type (D75.839) Thrombocytosis Assessment: -The patient is a 21-year-old female with past medical history as outlined above. She has chronic thrombocytosis and neutrophilia. Recent iron test normal. Most likely secondary to underlying process such as dental caries, steatosis, vaping and increased cortisol levels potentially associated with polycystic ovarian syndrome or stress from sleep apnea. Discussed with her this broad differential. Answered her and her mother's questions to their satisfaction. Plan: -Check MPN panel, FISH for BCR ABL translocation and flow cytometry since she has had an absolute lymphocyte lesion. -Recommend she discuss with her PCP testing for sleep apnea. -Would consider endocrinology referral to assess for hypercortisolism. -Further hematologic plan based on results of above lab work. I spent a total of 60 minutes on the date of the service which included preparing to see the patient, [id number] patient care, completing clinical documentation, obtaining and/or reviewing separately obtained history, performing a medically appropriate examination, counseling and educating the patient/family/caregiver, ordering medications, tests, or procedures, communicating with other HCPs (not separately reported), and communicating results to the patient/family/caregiver. Russell Burris DO documented in this encounter [facility] 08-14-2022 Miscellaneous Notes Patient's request for medication is as follows: Pending Prescriptions: Disp Refills amphetamine-dextroamphetamine XR (ADDERALL*30 cap*0 Sig: Take 1 capsule by mouth every morning for 30 days. Prescription(s) as above. Please process accordingly. Hemalatha Dejesus MD [facility] states pharmacy did not have medication in stock original but [facility] Santillan now has it. She questions if a new prescription can be sent over for the Adderall XR 30mg. Order pended Eden Mcgee RN documented in this encounter [facility] 08-07-2022 Note [facility] 08-07-2022 History of Present illness Narrative CHIEF COMPLAINT: Patient presents with: Procedure Follow Up: Complains of being tired more often. She has a burning sensation near her esophagus. Biopsy 07/05/22 HPI Katie Forde is a 21 year old female here today for Procedure Follow Up (Complains of being tired more often. She has a burning sensation near her esophagus. Biopsy 07/05/22) PMHx of migraine, Marfan's syndrome, depression, anxiety Dad is present today. Patient tells me that she is very fatigued. Has to take a nap daily. Notes burning in her throat and chest area. Notes daily nausea, unsure of triggers to this. No vomiting. Appetite is good. Trying to lose weight and diet. Diarrhea is worse with greasy foods. Does get cramping prior a BM. Liver biopsy 07/05/2022: Diagnosis Comment The patient has no significant past medical history. Fatty liver is identified on imaging studies with liver fibrosis score F0, A1 and Fibroscan findings of fibrosis stage F3-F4 and steatosis grade of S3. There is positive ASMA but AMA negative and viral hepatitis testing negative. H&E-stained sections show an inadequate liver needle biopsy with only 5 portal tracts present for evaluation. Within this limitation, the hepatic architecture appears intact. The few portal areas sampled show no expansion by inflammation with hepatic artery, portal vein and bile duct branches present. Interface hepatitis is not identified. The lobular parenchyma shows minimal (5%) macrovesicular steatosis, with a single possible ballooned hepatocyte and few hepatocytes seen. Cholestasis is not identified. Definite central vein areas are not present for evaluation. Intranuclear glycogen is appreciated within some hepatocytes. A trichrome stain shows no evidence of fibrosis. Iron stain shows no stainable iron. Reticulin stain shows normal reticulin fiber network. PAS/diastase stain shows no intracytoplasmic globules. Overall, the biopsy is suboptimal for evaluation given scant sampling and may not be financial foundations representative of a disease process, if present. Re-biopsy is recommended if clinically indicated to further evaluate for possible fatty liver disease. Dr. Scott Worthy has reviewed the case and agrees with the interpretation. Component Latest Ref Rng & Units 06/11/2022 Fibrosis Score 0.11 Fibrosis Stage F0 Fibrosis Interpretation No Fibrosis Necroinflam Activity Score 0.30 Necroinflam Activity Grade A1 Necroinflam Activity Interp Minimal Activity Alpha 2 Macroglobulin 110 - 270 mg/dL 221 Haptoglobin 31 - 238 mg/dL 188 APOLIPOPROTEIN A1 >124 mg/dL 119 (L) Total Bilirubin 0.2 - 1.3 mg/dL 0.4 GGT 6 - 42 U/L 34 ALT 10 - 35 U/L 61 (H) Cholesterol, Total <200 mg/dL 203 (H) Triglyceride <150 mg/dL 106 HDL Cholesterol >39 mg/dL 38 (L) Non HDL Cholesterol <130 mg/dL 165 (H) Fasting Time hrs 14 VLDL Cholesterol <30 mg/dL 21 TC:HDL Ratio <5.10 5.34 (H) LDL Cholesterol <100 mg/dL 144 (H) LDL:HDL Ratio <2.54 3.79 (H) Hemoglobin A1C 4.3 - 5.6 % 5.0 Estimated Average Glucose mg/dL 97 Actin Smooth Muscle IgG Qualitative Negative Moderate - Strong Positive (A) Actin Smooth Muscle IgG Quantitative <20 Units 36 (H) Mitochondrial Ab Screen Negative Negative Mitochondrial M2 IgG Quantitative <=20.0 Units 2.6 Hep B Core Ab, Total Negative Negative Hep B Surface Ag Negative Negative Hepatitis A IgG Negative Positive (A) Ferritin 14.7 - 205.1 ng/mL 59.6 Ceruloplasmin 16 - 45 mg/dL 26 Alpha 1 Antitrypsin 90 - 200 mg/dL 149 Hep C Antibody IA Negative Negative Current Outpatient Medications Medication Sig methylphenidate (RITALIN) 20 mg tablet Take 1 tablet by mouth as needed for up to 30 days. Take at approx. 3-4 pm. amphetamine-dextroamphetamine XR (ADDERALL XR) 30 mg 24 hr capsule Take 1 capsule by mouth every morning for 30 days. omeprazole (PRILOSEC) 20 mg capsule Take 1 capsule by mouth once daily. PNV No.40-Iron Fum-FA Cmb No.1 (PNV-SELECT) 27-1 mg tab Take 1 tablet by mouth once daily. medroxyPROGESTERone (PROVERA) 10 mg tablet Take 1 tablet by mouth once daily. for the 1st-10th of each month fluticasone (FLONASE) 50 mcg/actuation nasal spray Use 2 Sprays in each nostril once daily. Rinse mouth after use. (Patient not taking: Reported on 07/17/2022) benzonatate (TESSALON PERLES) 100 mg capsule Take 2 capsules by mouth three times daily as needed. (Patient not taking: Reported on 07/17/2022) No current facility-administered medications for this visit. ALLERGIES No Known Allergies Social History Tobacco Use Smoking status: Former Types: Cigarettes Smokeless tobacco: Never Vaping Use Vaping Use: current everyday user Substance Use Topics Alcohol use: Not Currently Comment: occasional Drug use: No PAST MEDICAL HISTORY Diagnosis Date Fatty liver Marfan's syndrome VIRAL WARTS NOS 06/25/2008 resolved PAST SURGICAL HISTORY Procedure Laterality Date DDI VIBRATION CONTROLLED TRANSIENT ELASTOGRAPHY (VCTE) 06/10/2022 Fibrosis stage F3-F4 and steatosis grade of S3 EYE SURGERY HX 05/02/2015 detached retina EYE SURGERY HX 08/19/2018 right sided secondary lens implant LIVER BIOPSY 07/05/2022 PAST SURGICAL HISTORY OF sherwin eyes PAST SURGICAL HISTORY OF right leg broken-surgery FAMILY HISTORY Problem Relation Age of Onset other (Marfan's) Mother None Father other (Marfan's) Brother other (mood issues) Brother Osteoporosis Maternal Grandmother other (Marfan's) Maternal Grandfather None Paternal Grandmother Heart Paternal Grandfather pace maker No Ocular Disease Other REVIEW OF SYSTEMS Review of Systems Cardiovascular: Positive for palpitations. Gastrointestinal: Positive for nausea. All other systems reviewed and are negative. PHYSICAL EXAM Pulse 101 Ht 5' 11 (1.80m) Wt 291 lb (132.0kg) LMP 06/18/2022 BMI 40.60 kg/(m^2). Physical Exam Constitutional: Appearance: Normal appearance. She is obese. HENT: Head: Normocephalic and atraumatic. Eyes: General: No scleral icterus. Extraocular Movements: Extraocular movements intact. Conjunctiva/sclera: Conjunctivae normal. Pupils: Pupils are equal, round, and reactive to light. Cardiovascular: Rate and Rhythm: Normal rate and regular rhythm. Pulses: Normal pulses. Heart sounds: Normal heart sounds. Pulmonary: Effort: Pulmonary effort is normal. Breath sounds: Normal breath sounds. Abdominal: General: Abdomen is flat. Bowel sounds are normal. Palpations: Abdomen is soft. Tenderness: There is no abdominal tenderness. Musculoskeletal: General: Normal range of motion. Cervical back: Normal range of motion and neck supple. Skin: General: Skin is warm and dry. Coloration: Skin is not jaundiced. Neurological: General: No focal deficit present. Mental Status: She is alert and oriented to person, place, and time. Psychiatric: Mood and Affect: Mood normal. Behavior: Behavior normal. Thought Content: Thought content normal. Judgment: Judgment normal. Assessment/Plan (K76.0) Fatty liver (primary encounter diagnosis) (R53.81, R53.83) Malaise and fatigue 1. Fatty liver -- Discussed liver testing and liver biopsy in detail with patient today. Showing fatty liver disease however biopsy are not adequate. -- Patient declines a re-biopsy today. -- Discussed fatty liver including healthy diet, weight loss, exercise -- Will recheck HFP - HEPATIC FUNCTION PNL; Future - CBC + DIFF; Future - VITAMIN D 25 HYDROXY; Future - VITAMIN B12 BLOOD; Future - TSH BLD; Future - IRON + TIBC; Future 2. Malaise and fatigue -- Notes significant fatigue -- Will check CBC, HFP, Vit D, Vit B12, TSH, Iron - HEPATIC FUNCTION PNL; Future - CBC + DIFF; Future - VITAMIN D 25 HYDROXY; Future - VITAMIN B12 BLOOD; Future - TSH BLD; Future - IRON + TIBC; Future Follow up in office 6 months/PRN. Recommended to please call office/go to ER if fever, chills, chest pain, SOB, diarrhea, nausea, emesis, worsening abdominal pain, dehydration occurs I spent 20 minutes in the visit, with more than 50% of the total [id number] time of the visit in counseling / coordination of care. I have confirmed and edited as necessary, the PFSH and ROS obtained by others. Zuleika Perez PA-C August 07, 2022 1:16 PM documented in this encounter [facility] 08-06-2022 Miscellaneous Notes The following approved medication requests have been transmitted electronically. Requested Prescriptions Signed Prescriptions Disp Refills methylphenidate (RITALIN) 20 mg tablet 30 tablet 0 Sig: Take 1 tablet by mouth as needed for up to 30 days. Take at approx. 3-4 pm. Authorizing Provider: ANTONIO SMALLS amphetamine-dextroamphetamine XR (ADDERALL XR) 30 mg 24 hr capsule 30 capsule 0 Sig: Take 1 capsule by mouth every morning for 30 days. Authorizing Provider: ANTONIO SMALLS MD Last [facility]: greater than one year ago Last ADHD / Med Check visit: 03/12/2022 Verify RX Benefits Completed Last medication refill date: 07/04/2022 Requesting 30 day supply Retail pharmacy updated: Completed Patient aware RX will be sent to pharmacy. No need to notify patient. Immunizations due: HEPATITIS B(4 of 4 - 4-dose series) due on 07/02/1999 COVID-19 VACCINE(1) Never done HIV SCREENING Never done DTAP,TDAP,TD(7 - Td or Tdap) due on 03/20/2020 MENINGOCOCCAL B: Consider based on risk(2 of 2 - Risk Bexsero 2-dose series) due on 04/09/2022 Jo-Ann Carreon LPN documented in this encounter [facility] 07-18-2022 Miscellaneous Notes Phone call placed patient advised (see prior provider encounter) Patient verbalized understanding, agreed with plan of care. Arminda Montoya LPN Vaginal testing showed overgrowth of both yeast and normal bacteria. 2 different medications were sent to the pharmacy to treat this. You tested negative for gonorrhea and chlamydia. Follow-up with your PCP or open die inspector if symptoms persist. documented in this encounter [facility] 07-09-2022 Miscellaneous Notes Addended by: ARTHUR JOSEPH on: 07/09/2022 03:53 PM Modules accepted: Orders documented in this encounter [facility] 07-09-2022 History of Present illness Narrative This note was created using [employer]. Subjective Katie Forde is a 21 year old female. HPI Patient presents with sinus pressure and congestion and cough over the past 2 weeks. About a month ago she was seen in primary care and diagnosed with sinusitis. She was placed on amoxicillin. She states that had gotten better and then this started 2 weeks ago. No fever. She has tried multiple [id number] medications without relief. No vomiting or diarrhea. The cough is keeping her up at night. Denies history of asthma. Review of Systems Constitutional: Negative for fever. HENT: Positive for congestion, ear pain, sinus pressure and sinus pain. Negative for sore throat. Respiratory: Positive for cough. Negative for shortness of breath and wheezing. Cardiovascular: Negative. Gastrointestinal: Negative. Genitourinary: Negative. Musculoskeletal: Negative. All other systems reviewed and are negative. PAST MEDICAL HISTORY Diagnosis Date Fatty liver Marfan's syndrome VIRAL WARTS NOS 06/25/2008 resolved Current Outpatient Medications Medication Sig Dispense Refill methylphenidate (RITALIN) 20 mg tablet Take 1 tablet by mouth as needed for up to 30 days. Take at approx. 3-4 pm. 30 tablet 0 omeprazole (PRILOSEC) 20 mg capsule Take 1 capsule by mouth once daily. 30 capsule 2 PNV No.40-Iron Fum-FA Cmb No.1 (PNV-SELECT) 27-1 mg tab Take 1 tablet by mouth once daily. 30 tablet 12 medroxyPROGESTERone (PROVERA) 10 mg tablet Take 1 tablet by mouth once daily. for the - of each month 10 tablet 11 amphetamine-dextroamphetamine XR (ADDERALL XR) 30 mg 24 hr capsule Take 1 capsule by mouth every morning for 30 days. 30 capsule 0 doxycycline (VIBRA-TABS) 100 mg tablet Take 1 tablet by mouth twice daily for 7 days. 14 tablet 0 fluticasone (FLONASE) 50 mcg/actuation nasal spray Use 2 Sprays in each nostril once daily. Rinse mouth after use. 1 Each 0 benzonatate (TESSALON PERLES) 100 mg capsule Take 2 capsules by mouth three times daily as needed. 30 capsule 0 No current facility-administered medications for this visit. PAST SURGICAL HISTORY Procedure Laterality Date EYE SURGERY HX 05/02/15 detached retina EYE SURGERY HX 08/19/2018 right sided secondary lens implant PAST SURGICAL HISTORY OF sherwin eyes PAST SURGICAL HISTORY OF right leg broken-surgery FAMILY HISTORY Problem Relation Age of Onset other (Marfan's) Mother None Father other (Marfan's) Brother other (mood issues) Brother Osteoporosis Maternal Grandmother other (Marfan's) Maternal Grandfather None Paternal Grandmother Heart Paternal Grandfather pace maker No Ocular Disease Other Social History Tobacco Use Smoking status: Former Types: Cigarettes Smokeless tobacco: Never Vaping Use Vaping Use: current everyday user Substance Use Topics Alcohol use: Not Currently Comment: occasional Drug use: No Objective BP 124/72 Pulse 115 Temp 36.9 C (98.4 F) (Tympanic) Resp 18 Wt 130 kg (286 lb 11.2 oz) LMP 06/18/2022 (Approximate) SpO2 98% BMI 39.99 kg/m Physical Exam Vitals reviewed. Constitutional: Appearance: Normal appearance. HENT: Head: Normocephalic and atraumatic. Right Ear: Tympanic membrane, ear canal and external ear normal. Left Ear: Tympanic membrane, ear canal and external ear normal. Nose: Congestion present. Left Sinus: Maxillary sinus tenderness and frontal sinus tenderness present. Mouth/Throat: Mouth: Mucous membranes are moist. Pharynx: Oropharynx is clear. Cardiovascular: Rate and Rhythm: Normal rate and regular rhythm. Heart sounds: Normal heart sounds. Pulmonary: Effort: Pulmonary effort is normal. Breath sounds: Normal breath sounds. Musculoskeletal: Cervical back: Neck supple. Lymphadenopathy: Cervical: No cervical adenopathy. Skin: General: Skin is warm and dry. Neurological: Mental Status: She is alert. Assessment and Plan ASSESSMENT/PLAN: 1. Sinobronchitis - ICD9: 473.9, 490, ICD10: J32.9, J40 - Will begin treatment with Doxycycline, tessalon, flonase. Patient requested COVID and flu testing, discussed this would not change treatment and she is not contagious but she would like tested. - Supportive care with plenty of fluids, rest, and analgesia prn. - Follow up in 3-5 days if symptoms persist or worsen. Arthur Joseph PA-C documented in this encounter [facility] 07-09-2022 Miscellaneous Notes SPECIFIC NOTES (if applicable): GENERAL INFORMATION - The listed prescriptions have been signed. If applicable, please notify the patient/family. - Unless noted in the intake documentation, I assume the medications are being used as directed; the patient is doing well; there are no side effects; and there are no undocumented medications or allergies. - This note was created using a speech to text program. There may be some incorrect words, spellings, and punctuation that were missed on review. Antonio Smalls M.D. [facility] is out of the Adderall and mom is wondering if the Rx can be sent to [facility] as they have it on hand. New RX pended. Pharmacy info was updated. documented in this encounter [facility] 07-05-2022 Miscellaneous Notes Site assessed dressing clean dry and intact Dr. Hayes at bedside with pt. documented in this encounter [facility] 07-05-2022 Surgical operation note BRIEF OPERATIVE / PROCEDURE NOTE LOG ID: [id number] SURGERY/PROCEDURE DATE: 07/05/2022 INCISION/PROCEDURE START TIME: 10:34 AM INCISION CLOSE/PROCEDURE END TIME: 11:02 AM SURGEON(S)/PROCEDURALIST(S) AND RUFFLING MACHINE OPERATOR(S): Surgeon(s) and Role: * Kelvin Hayes MD - Primary No Additional Staff SURGERY/PROCEDURE(S): Ultrasound guided random liver biopsy ANESTHESIA: Procedural Sedation FINDINGS: ESTIMATED BLOOD LOSS: minimal SPECIMENS: multiple cores COMPLICATIONS: None PRE-OP/PRE-PROCEDURE DIAGNOSIS: Hepatic steatosis POST-OP/POST-PROCEDURE DIAGNOSIS: Same as Preop SIGNATURE: Kelvin Hayes MD PATIENT NAME: Katie Forde DATE: July 05, 2022 TIME: 11:12 AM documented in this encounter [facility] 07-05-2022 History and physical note UPDATED HISTORY AND PHYSICAL EXAMINATION SERVICE DATE: 07/05/2022 SERVICE TIME: 10:15 am The History and Physical (completed in the past 30 days) has been reviewed and the patient has been examined. The contents accurately reflect the patient's condition with the following additions or revisions since the H&P was completed. Examination indicates no changes. This H&P can be found in the Electronic Medical Record. SIGNATURE: Kelvin Hayes MD PATIENT NAME: Katie Forde DATE: July 05, 2022 TIME: 11:11 AM PAGER: documented in this encounter [facility] 07-04-2022 Miscellaneous Notes The following approved medication requests have been transmitted electronically. Requested Prescriptions Signed Prescriptions Disp Refills amphetamine-dextroamphetamine XR (ADDERALL XR) 30 mg 24 hr capsule 30 capsule 0 Sig: Take 1 capsule by mouth every morning for 30 days. Authorizing Provider: ANTONIO SMALLS methylphenidate (RITALIN) 20 mg tablet 30 tablet 0 Sig: Take 1 tablet by mouth as needed for up to 30 days. Take at approx. 3-4 pm. Authorizing Provider: ANTONIO SMALLS MD Last [facility]: greater than one year ago Last ADHD / Med Check visit: Verify RX Benefits Completed Last medication refill date: 06/06/22 and 06/07/22 Requesting 30 day supply Retail pharmacy updated: Completed Patient aware RX will be sent to pharmacy. No need to notify patient. Immunizations due: HEPATITIS B(4 of 4 - 4-dose series) due on 07/02/1999 COVID-19 VACCINE(1) Never done HIV SCREENING Never done DTAP,TDAP,TD(7 - Td or Tdap) due on 03/20/2020 MENINGOCOCCAL B: Consider based on risk(2 of 2 - Risk Bexsero 2-dose series) due on 04/09/2022 Dylan Aldridge RN patient is aware that TMP out of the office until tomorrow, is fine awaiting his return documented in this encounter [facility] 07-02-2022 Miscellaneous Notes Rx for PNV was sent 05/30/22 to [facility] in [place] with 12 refills. [employer] message sent. Kristin Newby RN documented in this encounter [facility] 06-13-2022 Miscellaneous Notes Addended by: ZULEIKA PEREZ on: 06/13/2022 09:29 AM Modules accepted: Orders Liver biopsy order placed. Spoke with Katie, go ahead and place the order for liver biopsy, I gave her the number to call and schedule. Kierra Mahmood CMA Called patient to discuss liver testing. Did not answer. Left voicemail to call the office. Liver testing is showing an elevated smooth muscle antibody. This could potentially be indictative of autoimmune hepatitis. There is also a discrepancy with her Fibroscan and Fibrosure. Fibroscan is showing severe fibrosis while the Fibrosure lab test is showing no fibrosis. Will ultimately need liver biopsy to further confirm if she is willing to proceed. documented in this encounter [facility] 06-12-2022 Miscellaneous Notes Patient phones requesting refills as follows: Requested Prescriptions Pending Prescriptions Disp Refills omeprazole (PRILOSEC) 20 mg capsule 30 capsule 2 Sig: Take 1 capsule by mouth once daily. Please review and advise. Shukri Duenas MA documented in this encounter [facility] 06-11-2022 History of Present illness Narrative The patient was seen for the issues discussed below. Problem list and history reviewed. Allergies reviewed. Medications reviewed. Immunizations reviewed. HISTORY: see history section below PHYSICAL EXAM: GENERAL: alert, well appearing, in no distress LEFT EYE: no drainage noted, no conjunctival injection noted; RIGHT EYE: no drainage noted, no conjunctival injection noted; NO ADDITIONAL EYE FINDINGS LEFT EAR: pinna normal, auditory canal normal, tympanic membrane clear, effusion present (clear, mild), RIGHT EAR: pinna normal, auditory canal normal, tympanic membrane clear, effusion present (clear, mild) NOSE/SINUSES: nares normal, mucosa normal, congested OROPHARYNX: lips without lesions noted, gums/mucosa normal, oropharynx without erythema or exudates NECK/ADENOPATHY: neck supple, no adenopathy noted CHEST/LUNGS: lungs clear to auscultation, no retractions noted, expiratory phase normal, normal respiratory rate and rhythm GENERAL RECOMMENDATIONS: - Issues discussed in detail. - Symptom relief measures as needed. - Prescriptions, if ordered, are listed below. - Labs and/or X-rays, if ordered or obtained, are listed below. If the final results are not available at the conclusion of this visit, then additional recommendations may be made based on the final results. Note that all x-rays are reviewed by a radiologist before being considered final. - EKG, if ordered or obtained, is reviewed by a warrant server before being considered final. Additional recommendations may be made based on the final results. - Return to clinic should current symptoms (if present) worsen, other problems develop, or as needed. ADDITIONAL & DICTATED PORTION: ADDITIONAL HISTORY The following Nursing History was reviewed with the family: Patient presents with: Illness: Bilateral ear pain, wheezing and SOB - worsening with exacerbation, nasal congestion, runny nose x 3 wks; wet cough x 1 mos. Nausea. Discuss fatty liver 1. Patient has had a prolonged course of multiple symptoms. These include bronchitis diagnosed 05/14/2022, nasal congestion for several weeks, ear pain and popping for several days, wheezing and shortness of breath when going upstairs or outside in the cold weather. The above symptoms have been variable from week to week. No associated fevers. No eye complaints. Trace sore throat. No respiratory distress. No vomiting. Some diarrhea yesterday after eating greasy foods. Nausea has been present. No rash or edema. 2. The patient is currently under initial evaluation with gastroenterology for fatty liver. ACTIVE PROBLEM LIST Marfan's Syndrome Attention Deficit Hyperactivity Disorder (Adhd), Combined Type Subluxation of Lens Outbursts of Anger Depression Depersonalization Disorder (Hcc) Migraine Without Status Migrainosus, Not Intractable Oppositional Defiant Disorder Bmi (Body Mass Index), Pediatric, 85% to Less Than 95% for Age Bmi (Body Mass Index), Pediatric, Greater Than Or Equal to 95% for Age Lab Test Positive for Detection of Covid-19 Virus Anxiety Pain in Right Foot PAST MEDICAL HISTORY Diagnosis Date Fatty liver Marfan's syndrome VIRAL WARTS NOS 06/25/2008 resolved PAST SURGICAL HISTORY Procedure Laterality Date EYE SURGERY HX 05/02/15 detached retina EYE SURGERY HX 08/19/2018 right sided secondary lens implant PAST SURGICAL HISTORY OF sherwin eyes PAST SURGICAL HISTORY OF right leg broken-surgery ADDITIONAL EXAM / OTHER INFORMATION none ADDITIONAL IMPRESSION / PLAN 1. Multiple symptoms described above. Differential would include 1 viral illness after the other, chronic sinus drainage/sinusitis, environmental allergies, and asthma. Each of these were discussed in detail. After careful consideration it was decided to place the patient on a 28-day course of amoxicillin. Additional evaluation to be undertaken should symptoms persist beyond this treatment trial. 2. Continue with gastroenterology evaluation already in progress. Discussed that the actual cause of the liver issues has not yet been determined (based on review of the freezer assistant note). Therefore final conclusions regarding symptoms, natural course of the disorder, etc. cannot yet be made. I spent a total of 30-39 minutes on the date of service. This included preparing to see the patient; [id number] patient care; obtaining and/or reviewing separately obtained history; performing a medically appropriate examination; counseling and educating the patient/family/caregiver; and completing clinical documentation. As applicable, this also included ordering medications, tests, or procedures; independently interpreting results; communicating results to the patient/family/caregiver; and care coordination (not separately reported). This note was partially generated using [employer] voice recognition system, and there may be some incorrect words, spellings, and punctuation that were not noted in checking the note before saving. Antonio Smalls M.D. documented in this encounter [facility] 06-11-2022 Miscellaneous Notes Full liver panel ordered. documented in this encounter [facility] 06-07-2022 Miscellaneous Notes SPECIFIC NOTES (if applicable): GENERAL INFORMATION - The listed prescriptions have been signed. If applicable, please notify the patient/family. - Unless noted in the intake documentation, I assume the medications are being used as directed; the patient is doing well; there are no side effects; and there are no undocumented medications or allergies. - This note was created using a speech to text program. There may be some incorrect words, spellings, and punctuation that were missed on review. Antonio Smalls M.D. Mom calling. [facility] does not have Adderall XR 30mg in stock. She questions if you can send the prescription to [facility] instead. Order pended [place] clinical lab scientist documented in this encounter [facility] 06-06-2022 Miscellaneous Notes The following approved medication requests have been transmitted electronically. Requested Prescriptions Signed Prescriptions Disp Refills amphetamine-dextroamphetamine XR (ADDERALL XR) 30 mg 24 hr capsule 30 capsule 0 Sig: Take 1 capsule by mouth every morning for 30 days. Authorizing Provider: ANTONIO SMALLS methylphenidate (RITALIN) 20 mg tablet 30 tablet 0 Sig: Take 1 tablet by mouth as needed for up to 30 days. Take at approx. 3-4 pm. Authorizing Provider: ANTONIO SMALLS MD The listed prescriptions have been digitally or physically signed. If applicable, please notify the patient/family that they are ready. Unless noted by the intake documentation, I assume the medications are being used as directed; the patient is doing well; there are no significant side effects; and there are no undocumented medications or allergies. This note was partially created using Dragon voice recognition, and there may be some incorrect words, spellings, and punctuation that were not found during review. Antonio Smalls M.D. Mom in office with sibling, requesting refills of Adderall 30 mg and Ritalin 20 mg to be sent to the [place] [facility]. Megha Mcdonnell LPN documented in this encounter [facility] 05-30-2022 Miscellaneous Notes On 03/29/22 a new rx was sent to [facility] with 11 refills. [employer] message sent to patient. Kristin Newby RN documented in this encounter [facility] 05-30-2022 History of Present illness Narrative Katie Forde is a 21 year old female who presents for problem visit for f/u AUB HPI: 21-year-old female who took Provera because of abnormal uterine bleeding. She then had a heavy menses afterwards. She just took the Provera about the through 18 May. The she then had a 10-day menses. She is not bleeding today. She has no other new concerns today. OB History T0 L0 SAB0 IAB0 Ectopic0 Multiple0 Live Births0 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: 03/13/2022 (Approximate), Having periods Age at Menarche: Age at First : Age at Menopause: 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 Comments: Sexual Activity: Not Currently; No partner data on record Contraception: No contraception data on record PAST MEDICAL HISTORY Diagnosis Date Fatty liver Marfan's syndrome VIRAL WARTS NOS 06/25/2008 resolved PAST SURGICAL HISTORY Procedure Laterality Date EYE SURGERY HX 05/02/15 detached retina EYE SURGERY HX 08/19/2018 right sided secondary lens implant PAST SURGICAL HISTORY OF sherwin eyes PAST SURGICAL HISTORY OF right leg broken-surgery FAMILY HISTORY Problem Relation Age of Onset other (Marfan's) Mother None Father other (Marfan's) Brother other (mood issues) Brother Osteoporosis Maternal Grandmother other (Marfan's) Maternal Grandfather None Paternal Grandmother Heart Paternal Grandfather pace maker No Ocular Disease Other Social History Tobacco Use Smoking status: Former Types: Cigarettes Smokeless tobacco: Never Vaping Use Vaping Use: current everyday user Substance Use Topics Alcohol use: Not Currently Comment: occasional Drug use: No Current Outpatient Medications Medication Sig amphetamine-dextroamphetamine XR (ADDERALL XR) 30 mg 24 hr capsule Take 1 capsule by mouth every morning for 30 days. methylphenidate (RITALIN) 20 mg tablet Take 1 tablet by mouth as needed for up to 30 days. Take at approx. 3-4 pm. omeprazole (PRILOSEC) 20 mg capsule Take 1 capsule by mouth once daily. medroxyPROGESTERone (PROVERA) 10 mg tablet Take 1 tablet by mouth once daily. for the - of each month No current facility-administered medications for this visit. Allergies As of Date: 05/30/2022 (No Known Allergies) Fully Assessed 05/14/2022 Allergies and current medication updated:Yes EXAM: LMP 03/13/2022 GENERAL: pleasant, female in no apparent distress ASSESSMENT AND PLAN: Abnormal uterine bleeding. Discussed with the patient options for this. Discussed with her the need to protect the endometrium. Is currently sexually active with a male partner not planning a but does not want a be on control. We discussed combined hormonal contraceptives that is an option to control menses, cyclic Provera or progestin intrauterine system. At this point patient would like to take cyclic Provera. She understands that this is not contraception and is a significant possibility. Encourage vitamin in case of . Discussed with her some aerobic exercise and weight loss may help regulate her menstrual cycles as well. Patient states understanding and agreement with plan. Medical Decision Making: Medical Decision Making Level: 1 - N/A Lorna Day MD documented in this encounter [facility] 05-24-2022 Miscellaneous Notes I have scheduled patient to see Dr Day next week. Earlier appts. offered-pt declined. Bleeding precautions given as well as directive from Dr West I would schedule a visit for patient next week. If has heavy bleeding over the weekend would recommend ED visit. James West MD Please review in KJ absence. Roseanna Dumont LPN Pt calling and stated that she has taken 10days of provera and her bleeding never stopped. Pt has been bleeding for 5days. She reports that she has to change her protection every 4 hours. Pt wanting to know she has to do at this point. She reports that she is having cramping that she is rating a 6-7 on a pain scale. Pt took midol without relief. Pt denies any SOB, CP, dizziness. Pt wanting to know if there is anything more that she needs to do. Roseanna Dumont LPN documented in this encounter [facility] 05-09-2022 History of Present illness Narrative Rx signed while sibling at a visit. Antonio Smalls MD documented in this encounter [facility] 05-07-2022 Instructions Annia Hogan APRN.[facility] - 05/07/2022 1:59 PM EST Start omeprazole 20 mg on empty stomach and wait 30 min before eating Schedule Fibroscan and HIDA scan If no improvement on omeprazole of chest pain, abdominal pain, heartburn, nausea then please mychart or call the GI office Follow up in 3 months (GERD follow up) Acid Reflux: Avoid NSAIDs (such as Advil, Ibuprofen, Excedrin, Mobic), tobacco, alcohol, carbonated beverages, caffeine, chocolate, tomato based sauces, spicy/fatty foods, and peppermint Avoid eating large meals. Avoid eating less than 3 hours before bed. Weight loss. Elevate the head of the bed 6 inches, or at least invest in a wedge pillow. documented in this encounter [facility] 05-07-2022 History of Present illness Narrative CHIEF COMPLAINT: Patient presents with: Heartburn: Fatigue, her body feels tingly at times. US 04/29/22 Labs 04/04/22 ER/labs 04/11/22 This consult was requested by Antonio Smalls MD for an opinion regarding heartburn. My final recommendations will be communicated to the requesting health care provider by way of the shared medical record for internal providers or letter via the [employer] for external providers. HPI: Katie Forde is a 21 year old female who presents for Heartburn (Fatigue, her body feels tingly at times. US 04/29/22 Labs 04/04/22 ER/labs 04/11/22). The patient reports change in bowel habits has noticed having diarrhea after greasy foods. She reports has noticed abdominal pain with greasy foods. She report this to be cramping sensation and then will have diarrhea. She states this will keep her up at night. Denies rectal bleeding or black stools. Having a bowel movement daily which is normal if she is not eating greasy foods. Denies unintentional weight loss. She reports the last 3 days she has been having heartburn. PAtient reports going [place] [facility] for chest pain sharp stabbing sensation. She was told this was due to GERD symptoms. At times regurgitation of food - She denies taking NSAIDS daily Patient reports she is vaping nicotine daily - Record Review: [facility] / Outside records reviewed. Component Latest Ref Rng & Units 04/04/2022 AST 13 - 35 U/L 44 (H) ALT 7 - 38 U/L 63 (H) WSR 0 - 20 mm/hr 33 (H) RUQ US Impression IMPRESSION: Fatty infiltration of the liver. No biliary dilatation or cholelithiasis. PAST MEDICAL HISTORY Diagnosis Date Fatty liver Marfan's syndrome VIRAL WARTS NOS 06/25/2008 resolved PAST SURGICAL HISTORY Procedure Laterality Date EYE SURGERY HX 05/02/15 detached retina EYE SURGERY HX 08/19/2018 right sided secondary lens implant PAST SURGICAL HISTORY OF sherwin eyes PAST SURGICAL HISTORY OF right leg broken-surgery Allergies: ALLERGIES No Known Allergies Medications: amphetamine-dextroamphetamine XR (ADDERALL XR) 30 mg 24 hr capsule Take 1 capsule by mouth every morning for 30 days. methylphenidate (RITALIN) 20 mg tablet Take 1 tablet by mouth as needed for up to 30 days. Take at approx. 3-4 pm. medroxyPROGESTERone (PROVERA) 10 mg tablet Take 1 tablet by mouth once daily. for the -10th of each month FAMILY HISTORY Problem Relation Age of Onset other (Marfan's) Mother None Father other (Marfan's) Brother other (mood issues) Brother Osteoporosis Maternal Grandmother other (Marfan's) Maternal Grandfather None Paternal Grandmother Heart Paternal Grandfather pace maker No Ocular Disease Other Employer And Job Title: None on file Years Of Education Completed: Not specified Marital Status: Single Social History Tobacco Use Smoking status: Former Types: Cigarettes Smokeless tobacco: Never Vaping Use Vaping Use: current everyday user Substance Use Topics Alcohol use: Not Currently Comment: occasional Drug use: No Review of Systems: Review of Systems Gastrointestinal: Positive for abdominal pain, diarrhea and nausea. Heartburn, Gas All other systems reviewed and are negative. Are you taking any blood thinners? No Physical Examination: Pulse 93 Ht 5' 11 (1.80m) Wt 291 lb (132.0kg) LMP 03/13/2022 BMI 40.60 kg/(m^2). Physical Exam Constitutional: Appearance: Normal appearance. She is normal weight. HENT: Head: Normocephalic and atraumatic. Eyes: Extraocular Movements: Extraocular movements intact. Pupils: Pupils are equal, round, and reactive to light. Cardiovascular: Rate and Rhythm: Normal rate and regular rhythm. Pulses: Normal pulses. Heart sounds: Normal heart sounds. Pulmonary: Effort: Pulmonary effort is normal. Breath sounds: Normal breath sounds. Abdominal: General: Abdomen is flat. Bowel sounds are normal. Palpations: Abdomen is soft. Musculoskeletal: General: Normal range of motion. Cervical back: Normal range of motion and neck supple. Skin: General: Skin is warm and dry. Neurological: General: No focal deficit present. Mental Status: She is alert and oriented to person, place, and time. Psychiatric: Mood and Affect: Mood normal. Behavior: Behavior normal. Assessment/Plan (K76.0) Fatty liver (primary encounter diagnosis) (R89.9) Abnormal laboratory test (R53.81, R53.83) Malaise and fatigue (R19.7) Diarrhea, unspecified type (R10.9) Abdominal pain, unspecified abdominal location (R11.0) Nausea 1. Abnormal laboratory test - CONSULT TO GASTROENTEROLOGY - DDI VIBRATION CONTROLLED TRANSIENT ELASTOGRAPHY (VCTE) 2. Malaise and fatigue - CONSULT TO GASTROENTEROLOGY 3. Diarrhea, unspecified type - CONSULT TO GASTROENTEROLOGY 4. Abdominal pain, unspecified abdominal location - CONSULT TO GASTROENTEROLOGY 5. Fatty liver - DDI VIBRATION CONTROLLED TRANSIENT ELASTOGRAPHY (VCTE) 6. Nausea - NM HEPATOBILIARY W EF AND/OR RX; Future Follow up in office 3 months/PRN. Recommended to please call office/go to ER if fever, chills, chest pain, SOB, diarrhea, nausea, emesis, worsening abdominal pain, dehydration occurs I spent a total of 30 minutes on the date of the service which included preparing to see the patient, [id number] patient care, completing clinical documentation, obtaining and/or reviewing separately obtained history, performing a medically appropriate examination, counseling and educating the patient/family/caregiver, ordering medications, tests, or procedures, communicating with other HCPs (not separately reported), independently interpreting results (not separately reported), communicating results to the patient/family/caregiver, and care coordination (not separately reported). Annia Hogan APRN.[facility] May 09, 2022 3:05 PM documented in this encounter [facility] 05-03-2022 Miscellaneous Notes Please review pt's [employer] message in RR absence. Roseanna Dumont LPN documented in this encounter [facility] 04-30-2022 Miscellaneous Notes patient notified via [employer] message Dylan Aldridge RN Please let the patient/family know that the right upper quadrant ultrasound did reveal some fatty infiltration of the liver (in other words the liver has more fat than expected). This is a nonspecific finding which can be caused by multiple causes. It would also explain the prolonged elevation of liver function tests. It typically is evaluated by gastroenterology. Please continue with the gastroenterology referral that was made at the last visit. This note was partially generated using [employer] recognition system, and there may be some incorrect words, spellings, and punctuation that were not noted in checking the note before saving. Antonio Smalls MD documented in this encounter [facility] 04-29-2022 History of Present illness Narrative Radiology Service Progress Note PATIENT NAME: Katie Forde DATE OF SERVICE: April 29, 2022 TIME: 9:49 AM PATIENT IDENTITY VERIFICATION COMPLETED USING TWO (2) IDENTIFIERS: Name and Date of confirmed by patient verbally. FALL SCREENING: Has the patient had 2 falls in the last year or 1 fall with injury or currently using an Ambulatory Assistive Device (Walker, Cane, Wheelchair, Crutches, etc.)? No PATIENT GENDER DATA: Female. status: : No status: NO. PATIENT RELEVANT IMPLANT DATA REVIEWED: Not Applicable RADIOLOGY DEPARTMENT: Ultrasound PERIPHERAL IV DATA: Not applicable SIGNED BY: Rebeca Chinchilla RDMS RVT April 29, 2022 9:49 AM documented in this encounter [facility] 04-19-2022 Miscellaneous Notes Spoke with patient, transferred to [facility] for scheduling Eden Mcgee RN Referral/s needed are listed below. Unless also noted below, the family has not yet decided on their preference in terms of location/provider, or has not had time to check with their insurance regarding restrictions. Once the family has made their decision, then precise arrangements, orders, etc. can be created. 1. Right upper quadrant ultrasound to be obtained. Order has been placed. Please help with scheduling. 2. Gastroenterology referral. Adult gastroenterology would be utilized based on patient's age. Order has been placed. This note was partially generated using [employer] voice recognition system, and there may be some incorrect words, spellings, and punctuation that were not noted in checking the note before saving. Antonio Smalls MD documented in this encounter [facility] 04-18-2022 History of Present illness Narrative The patient was seen for the issues discussed below. Problem list and history reviewed. Allergies reviewed. Medications reviewed. Immunizations reviewed. HISTORY: see history section below PHYSICAL EXAM: GENERAL: alert, well appearing, in no distress LEFT EYE: no drainage noted, no conjunctival injection noted; RIGHT EYE: no drainage noted, no conjunctival injection noted; NO ADDITIONAL EYE FINDINGS LEFT EAR: pinna normal, auditory canal normal, tympanic membrane clear, no effusion noted, RIGHT EAR: pinna normal, auditory canal normal, tympanic membrane clear, no effusion noted NOSE/SINUSES: nares normal, mucosa normal, no drainage noted OROPHARYNX: lips without lesions noted, gums/mucosa normal, oropharynx without erythema or exudates NECK/ADENOPATHY: neck supple, no adenopathy noted CHEST/LUNGS: lungs clear to auscultation CARDIOVASCULAR: regular rate and rhythm, capillary refill less than 2 seconds ABDOMEN: soft, nontender, bowel sounds normal, no masses, no organomegaly, abdomen nondistended SKIN: normal color, no rash, no jaundice, moist mucous membranes, turgor within normal limits GENERAL RECOMMENDATIONS: - Issues discussed in detail. - Symptom relief measures as needed. - Prescriptions, if ordered, are listed below. - Labs and/or X-rays, if ordered or obtained, are listed below. If the final results are not available at the conclusion of this visit, then additional recommendations may be made based on the final results. Note that all x-rays are reviewed by a radiologist before being considered final. - EKG, if ordered or obtained, is reviewed by a warrant server before being considered final. Additional recommendations may be made based on the final results. - Return to clinic should current symptoms (if present) worsen, other problems develop, or as needed. ADDITIONAL & DICTATED PORTION: ADDITIONAL HISTORY The following Nursing History was reviewed with the family: Patient presents with: Discussion: Discuss lab results The patient was initially evaluated for abdominal pain, nausea, and amenorrhea in July of this year. Initial labs showed some abnormalities therefore additional evaluation was performed on August. No specific etiology was determined. She has since been receiving serial liver function tests and sedimentation rates. The sedimentation rate has remained mildly elevated throughout this time. The liver function tests peaked 09/05/2021 and have gradually been decreasing since that time. The results of the specific labs are shown below: Component Latest Ref Rng & Units 08/07/2021 09/05/2021 09/11/2021 10/10/2021 04/04/2022 WSR 0 - 20 mm/hr 26 (H) 36 (H) 28 (H) 30 (H) 33 (H) AST 13 - 35 U/L 149 (H) 53 (H) 44 (H) ALT 7 - 38 U/L 212 (H) 74 (H) 63 (H) Component Latest Ref Rng & Units 09/11/2021 Protein, Total 6.3 - 8.0 g/dL 8.1 (H) Albumin 3.9 - 4.9 g/dL 4.4 Calcium 8.5 - 10.2 mg/dL 9.6 Bilirubin, Total 0.2 - 1.3 mg/dL 0.5 Alkaline Phosphatase 34 - 123 U/L 76 AST 13 - 35 U/L 78 (H) ALT 7 - 38 U/L 127 (H) Glucose 74 - 99 mg/dL 100 (H) BUN 7 - 21 mg/dL 8 Creatinine 0.58 - 0.96 mg/dL 0.75 Sodium 136 - 144 mmol/L 139 Potassium 3.7 - 5.1 mmol/L 4.0 Chloride 97 - 105 mmol/L 102 CO2 22 - 30 mmol/L 23 Anion Gap 9 - 18 mmol/L 14 eGFR >=60 mL/min/1.73m 116 Component Latest Ref Rng & Units 09/11/2021 Transglutaminase Ab, IgA <20 Units 5 Transglutaminase IgA Qualitative Negative, Test not Indicated Negative Interpretation (Celiac Screen) No serological evidence of celiac disease, however, if celiac disease is clinically suspected and patient is not on gluten-free diet, histological diagnosis may be considered. HLA testing may help with risk assessment. EBV EA Ab, Qual Negative Negative EBV VCA IgM, Qual Negative Negative EBV VCA IgG, Qual Negative Positive (A) Component Latest Ref Rng & Units 08/07/2021 09/11/2021 WBC 3.70 - 11.00 k/uL 11.15 (H) 11.76 (H) RBC 3.90 - 5.20 m/uL 4.89 5.30 (H) Hemoglobin 11.5 - 15.5 g/dL 14.3 15.4 Hematocrit 36.0 - 46.0 % 42.9 47.5 (H) MCV 80.0 - 100.0 fL 87.7 89.6 MCH 26.0 - 34.0 pg 29.2 29.1 MCHC 30.5 - 36.0 g/dL 33.3 32.4 RDW-CV 11.5 - 15.0 % 12.2 12.8 Platelet Count 150 - 400 k/uL 568 (H) 573 (H) MPV 9.0 - 12.7 fL 10.3 10.2 Neut% % 57.6 49.2 Abs Neut (ANC) 1.45 - 7.50 k/uL 6.42 5.79 Lymph% % 35.5 41.6 Abs Lymph 1.00 - 4.00 k/uL 3.96 4.89 (H) Boyd% % 4.9 6.3 Abs Boyd <0.87 k/uL 0.55 0.74 Eosin% % 1.3 1.4 Abs Eosin <0.46 k/uL 0.14 0.16 Baso% % 0.7 1.1 Abs Baso <0.11 k/uL 0.08 0.13 (H) Immature Gran % % 0.4 IMMATURE GRANS (ABS) <0.10 k/uL 0.05 NRBC /100 WBC 0.0 Absolute nRBC <0.01 k/uL <0.01 <0.01 DTYPE Auto Nucleated Reds 0 /100 WBC 0.0 Diff Type Auto Diff Component Latest Ref Rng & Units 07/03/2020 07/12/2021 COVID 19 Source [employer] UPPER RESPIRATORY TRACT SWAB UPPER RESPIRATORY TRACT SWAB Influenza A PCR Negative for Influenza A by RT PCR Influenza B PCR Negative for Influenza B by RT PCR COVID 19 Result [employer] Negative for COVID19 (SARS CoV2) by RT-PCR or equivalent method. Positive for COVID19 (SARS CoV2) by PCR. (A) Negative for COVID19 (SARS CoV2) by RT-PCR or equivalent method. The patient does not recall any specific illness or injury that occurred on or before July of this year. She was positive for COVID-19 in June 2020. In terms of ongoing/consistent symptoms, review of systems was negative for fevers. No change in appetite or activity. No significant weight changes have occurred (weight has fluctuated, with maximum change of approximately 10 pounds since July). Significant fatigue has been present more recently. She has a history of chronic migraines. No new headaches. No eye, ear, nose complaints. She has experienced intermittent throat complaints but does vape. No lymphadenopathy. Chest pain was present 1 week ago when she was evaluated in the emergency room. Told that reflux was a possible etiology. She has noted shortness of breath when going upstairs. She also has which she describes as a smoker's cough. Intermittent palpitations have been present. On occasion her heart rate based on her apple watch has been 200. It then slows down with deep breaths. No vomiting or nausea. She does have diarrhea when eating greasy foods. No diarrhea with other foods. No rash or edema. She does not know of any family history of gastroenterology issues. Due to a history of Marfan's syndrome, she has been evaluated previously by cardiology. ACTIVE PROBLEM LIST Marfan's Syndrome Attention Deficit Hyperactivity Disorder (Adhd), Combined Type Subluxation of Lens Outbursts of Anger Depression Depersonalization Disorder (Hcc) Migraine Without Status Migrainosus, Not Intractable Oppositional Defiant Disorder Bmi (Body Mass Index), Pediatric, 85% to Less Than 95% for Age Bmi (Body Mass Index), Pediatric, Greater Than Or Equal to 95% for Age Lab Test Positive for Detection of Covid-19 Virus Anxiety Pain in Right Foot PAST MEDICAL HISTORY Diagnosis Date Marfan's syndrome VIRAL WARTS NOS 06/25/2008 resolved PAST SURGICAL HISTORY Procedure Laterality Date EYE SURGERY HX 05/02/15 detached retina EYE SURGERY HX 08/19/2018 right sided secondary lens implant PAST SURGICAL HISTORY OF sherwin eyes PAST SURGICAL HISTORY OF right leg broken-surgery Current Outpatient Medications on File Prior to Visit Medication Sig amphetamine-dextroamphetamine XR (ADDERALL XR) 30 mg 24 hr capsule Take 1 capsule by mouth every morning for 30 days. medroxyPROGESTERone (PROVERA) 10 mg tablet Take 1 tablet by mouth once daily. for the - of each month methylphenidate (RITALIN) 20 mg tablet Take 1 tablet by mouth as needed for up to 30 days. Take at approx. 3-4 pm. No current facility-administered medications on file prior to visit. ADDITIONAL EXAM / OTHER INFORMATION none ADDITIONAL IMPRESSION / PLAN Sedimentation rate has remained elevated since initially drawn July of this year. Liver function tests increased and peaked in early August, with slow gradual decline since that time (but are still elevated). No specific history of preceding illness or injury that resulted in liver dysfunction. However, coupled with the fatigue and the ongoing diarrhea, an illness such as long COVID would be a consideration. She also has complaints of diarrhea with greasy foods which could indicate gallbladder issues. Illnesses such as inflammatory bowel disease would also be a consideration, but less likely. This was discussed in detail. As a precaution, we will recommend ultrasound of the right upper quadrant as well as consult to gastroenterology. Orders Placed This Encounter US ABD RT UPPER QUADRANT Standing Status: Future Standing Expiration Date: 05/18/2023 Order Specific Question: Image Spleen?: Answer: No Spleen Imaging CONSULT TO GASTROENTEROLOGY Standing Status: Future Standing Expiration Date: 04/18/2023 Order Specific Question: Does consulting provider have [facility] Epic access? Answer: Yes I spent a total of 40-54 minutes on the date of service. This included preparing to see the patient; [id number] patient care; obtaining and/or reviewing separately obtained history; performing a medically appropriate examination; counseling and educating the patient/family/caregiver; and completing clinical documentation. As applicable, this also included ordering medications, tests, or procedures; independently interpreting results; communicating results to the patient/family/caregiver; and care coordination (not separately reported). This note was partially generated using [employer] voice recognition system, and there may be some incorrect words, spellings, and punctuation that were not noted in checking the note before saving. Antonio Smalls M.D. documented in this encounter [facility] 04-05-2022 Miscellaneous Notes Patient notified, voiced understanding. Appointment scheduled Eden Mcgee RN Please let the patient know the following: Sedimentation rate remains elevated. Statistically the value is the same as previous values. It does show that inflammation is present. It does not provide specific information as to what the inflammation would be. This could be related to the chronic right foot pain for which the patient has seen podiatry, it could represent the same cause as what resulted in the elevated liver function tests (which are improving), or other undefined cause. The sedimentation has been elevated for the same duration as the elevated liver function tests. Although the liver function tests are showing improvement, the continued elevation in sedimentation rate would prompt a visit to be scheduled for potential additional evaluation. I would recommend scheduling a 30-minute [id number] visit. This note was created using a speech to text program. There may be some incorrect words, spellings, and punctuation that were missed on review. Antonio Smalls M.D. documented in this encounter [facility] 04-04-2022 Miscellaneous Notes The values are gradually returning towards normal. The ALT for example has returned almost 3/[address] back to normal (it was 212 seven months ago, 63 today). The AST was 144 seven months ago, 44 today. For some people this can be a slow process. No additional evaluation or treatment required at this time. This note was partially generated using [employer] voice recognition system, and there may be some incorrect words, spellings, and punctuation that were not noted in checking the note before saving. Antonio Smalls MD Pt called back in and wonders if there is something she can do to help get her ALT and AST levels back to normal? Patient notified, voiced understanding Eden Mcgee RN AST and ALT have shown improvement since 5 months ago (but are not yet in the normal range). I would recommend rechecking in 6 months. This note was partially generated using [employer] voice recognition system, and there may be some incorrect words, spellings, and punctuation that were not noted in checking the note before saving. Antonio Smalls MD documented in this encounter [facility] 03-29-2022 History of Present illness Narrative Katie Forde is a 21 year old female who presents for problem visit for AUB for about a year. Sometimes heavy, sometimes skips them. Had to go to ED once b/c of heavy bleeding. Had medication to slow it. LMP 03/13 for 7 days. January 21- of AUB was one before that. Moderate flow, very crampy. Doesn't usually take meds. Has skipped months. Some clots. Not currently sexually active. Weight mostly stable but has lost a few lbs recently. Hasn't been eating as much. No changes in hair or acne changes or hirsuitism. Denies nipple discharge. C/o small swollen area by perineum, present intermediate. not painful OB History T0 L0 SAB0 IAB0 Ectopic0 Multiple0 Live Births0 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: 03/13/2022 (Approximate), Having periods Age at Menarche: Age at First : Age at Menopause: 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 Comments: Sexual Activity: Not Currently; No partner data on record Contraception: No contraception data on record PAST MEDICAL HISTORY Diagnosis Date Marfan's syndrome VIRAL WARTS NOS 06/25/2008 resolved PAST SURGICAL HISTORY Procedure Laterality Date EYE SURGERY HX 05/02/15 detached retina EYE SURGERY HX 08/19/2018 right sided secondary lens implant PAST SURGICAL HISTORY OF sherwin eyes PAST SURGICAL HISTORY OF right leg broken-surgery FAMILY HISTORY Problem Relation Age of Onset other (Marfan's) Mother None Father other (Marfan's) Brother other (mood issues) Brother Osteoporosis Maternal Grandmother other (Marfan's) Maternal Grandfather None Paternal Grandmother Heart Paternal Grandfather pace maker No Ocular Disease Other Social History Tobacco Use Smoking status: Some Days Smokeless tobacco: Never Vaping Use Vaping Use: current everyday user Substance Use Topics Alcohol use: Yes Comment: occasional Drug use: No Current Outpatient Medications Medication Sig amphetamine-dextroamphetamine XR (ADDERALL XR) 30 mg 24 hr capsule Take 1 capsule by mouth every morning for 30 days. methylphenidate (RITALIN) 20 mg tablet Take 1 tablet by mouth as needed for up to 30 days. Take at approx. 3-4 pm. No current facility-administered medications for this visit. Allergies As of Date: 03/29/2022 (No Known Allergies) Fully Assessed 03/12/2022 REVIEW OF SYSTEMS Breast: No breast lumps, nipple d/c, overlying skin changes, redness or skin retraction. 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 Declines contraception reassured about peianal skin tag Medical Decision Making: Medical Decision Making Level: 1 - N/A Lorna Day MD documented in this encounter [facility] 03-13-2022 Miscellaneous Notes Left message to call the office, Mychart message also sent Eden Mcgee RN Referral/s needed are listed below. Unless also noted below, the family has not yet decided on their preference in terms of location/provider, or has not had time to check with their insurance regarding restrictions. Once the family has made their decision, then precise arrangements, orders, etc. can be created. Podiatry referral to reestablish care. Patient currently with chronic right foot pain. This note was partially generated using [employer] voice recognition system, and there may be some incorrect words, spellings, and punctuation that were not noted in checking the note before saving. Antonio Smalls MD documented in this encounter [facility] 03-12-2022 History of Present illness Narrative SomedayThe patient was seen for the issues discussed below. Problem list and history reviewed. Allergies reviewed. Medications reviewed. Immunizations reviewed. HISTORY: see history section below PHYSICAL EXAM: GENERAL: alert, well appearing, in no distress LEFT EYE: no drainage noted, no conjunctival injection noted; RIGHT EYE: no drainage noted, no conjunctival injection noted; NO ADDITIONAL EYE FINDINGS LEFT EAR: pinna normal, auditory canal normal, tympanic membrane clear, no effusion noted, RIGHT EAR: pinna normal, auditory canal normal, tympanic membrane clear, no effusion noted NOSE/SINUSES: nares normal, mucosa normal, no drainage noted OROPHARYNX: lips without lesions noted, gums/mucosa normal, oropharynx without erythema or exudates NECK/ADENOPATHY: neck supple, no adenopathy noted CHEST/LUNGS: lungs clear to auscultation CARDIOVASCULAR: regular rate and rhythm, capillary refill less than 2 seconds ABDOMEN: soft, nontender, bowel sounds normal, no masses, no organomegaly, abdomen nondistended SKIN: normal color, no rash, no jaundice, moist mucous membranes, turgor within normal limits GENERAL RECOMMENDATIONS: - Issues discussed in detail. - Symptom relief measures as needed. - Prescriptions, if ordered, are listed below. - Labs and/or X-rays, if ordered or obtained, are listed below. If the final results are not available at the conclusion of this visit, then additional recommendations may be made based on the final results. Note that all x-rays are reviewed by a radiologist before being considered final. - EKG, if ordered or obtained, is reviewed by a warrant server before being considered final. Additional recommendations may be made based on the final results. - Return to clinic should current symptoms (if present) worsen, other problems develop, or as needed. ADDITIONAL & DICTATED PORTION: ADDITIONAL HISTORY The following Nursing History was reviewed with the family: Patient presents with: Med Check: Med check - pt reports doing well, mom states same as before . No adverse effects per pt 1. The patient is currently on Adderall XR 40 mg each morning. She also takes regular Ritalin 20 mg in the afternoon. This is working well in controlling distractibility. No severe appetite suppression. No palpitations or syncope. 2. She has noted an increase in anxiety symptoms. She was previously on Paxil and Abilify through psychiatry. This was discontinued by the family. SCARED Rating Scale Panic/somatic 8 cutoff equals 7 Generalized anxiety 16 cutoff equals 9 Separation 9 cutoff equals 5 Social 14 cutoff equals 8 School avoidance 6 cutoff equals 3 TOTAL 53 cutoff equals 25 PHQ-9 score was 9. 3. She has also been having increasing headaches. She has previously been on Topamax but this was discontinued due to lack of compliance. 4. She has also had ongoing right foot pain. She has been seen several times over the past 2 months for this. Diagnosed with an ankle sprain as well as right foot pain. X-ray of the ankle was negative at a recent urgent care visit. X-ray of the right foot was also negative. The pain is at the ball of the foot. It is not showing improvement. The ankle pain has resolved. No edema or erythema in the region of the foot pain. Review of systems negative for fevers. No eye, ear, nose, throat complaints. No cough, wheezing, shortness of breath. No vomiting, diarrhea, abdominal pain. No rash. ACTIVE PROBLEM LIST Marfan's Syndrome Attention Deficit Hyperactivity Disorder (Adhd), Combined Type Subluxation of Lens Outbursts of Anger Depression Depersonalization Disorder (Hcc) Migraine Without Status Migrainosus, Not Intractable Oppositional Defiant Disorder Bmi (Body Mass Index), Pediatric, 85% to Less Than 95% for Age Bmi (Body Mass Index), Pediatric, Greater Than Or Equal to 95% for Age Lab Test Positive for Detection of Covid-19 Virus Anxiety Pain in Right Foot PAST MEDICAL HISTORY Diagnosis Date Marfan's syndrome VIRAL WARTS NOS 06/25/2008 resolved PAST SURGICAL HISTORY Procedure Laterality Date EYE SURGERY HX 05/02/15 detached retina EYE SURGERY HX 08/19/2018 right sided secondary lens implant PAST SURGICAL HISTORY OF sherwin eyes PAST SURGICAL HISTORY OF right leg broken-surgery ADDITIONAL EXAM / OTHER INFORMATION none ADDITIONAL IMPRESSION / PLAN Attention deficit hyperactivity disorder (adhd), combined type (primary encounter diagnosis) Migraine without status migrainosus, not intractable, unspecified migraine type Anxiety Pain in right foot Encounter for immunization 1. ADHD. Although the patient is having good control in terms of distractibility, I feel the stimulant medication is likely worsening her anxiety (since she is no longer being treated for the anxiety). We will therefore change the Adderall XR dosage to 30 mg each morning. The afternoon 20 mg of regular Ritalin can continue unchanged. Dosage may again be return to the current dosage once the anxiety is under control. 2. Recommend reestablishing care with her psychiatrist for the Abiakhil and Paxil. 3. We will hold off restarting Topamax as patient has difficulty with consistency regarding daily medications. If headaches worsen this will be reconsidered. 4. Podiatry referral to reestablish care due to the right foot pain. I spent a total of 30-39 minutes on the date of service. This included preparing to see the patient; [id number] patient care; obtaining and/or reviewing separately obtained history; performing a medically appropriate examination; counseling and educating the patient/family/caregiver; and completing clinical documentation. As applicable, this also included ordering medications, tests, or procedures; independently interpreting results; communicating results to the patient/family/caregiver; and care coordination (not separately reported). This note was partially generated using [employer] voice recognition system, and there may be some incorrect words, spellings, and punctuation that were not noted in checking the note before saving. Antonio Smalls M.D. documented in this encounter [facility] 03-01-2022 Miscellaneous Notes Patient notified of bacterial growth in urine. She states she is still having frequency. Rx for Macrobid sent to pharmacy. Kera Joseph APRN.CNP documented in this encounter [facility] 02-27-2022 Instructions Maye Rubalcava - 02/27/2022 3:05 PM EDT ASSESSMENT/PLAN: 1. Abnormal urination - ICD9: 788.69, ICD10: R39.198 (primary diagnosis) - UA DIP, URINE (POC) - URINE CULTURE 2. Irregular periods - ICD9: 626.4, ICD10: N92.6 - HCG QUAL UR B/O ASSESSMENT/PLAN: 3. Acute vaginitis - ICD9: 616.10, ICD10: N76.0 - YEIMY / TRICHOMONAS AMPLIFICATION - BACTERIAL VAGINOSIS AMPLIFICATION - GC/CHLAMYDIA DNA DET Maye Rubalcava APRN student - Follow-up with your PCP in 3-5 days if symptoms have not improved or sooner if symptoms worsen - Discussed red flags and need for immediate medical evaluation if any occur. - Discussed supportive care treatment with fluids, rest and analgesia. - Discussed expected course of illness Kera Joseph APRN.CNP documented in this encounter [facility] 02-27-2022 History of Present illness Narrative Subjective UTI Associated symptoms include frequency. Pertinent negatives include no chills, no nausea, no vomiting, no hematuria, no urgency and no flank pain. Katie Forde is a 21 year old female who presents with urinary frequency for the past 2 weeks. Often feels like she has to urinate and when she tries she can't go. She denies dysuria, back pain, abdominal pain or fever. She has not taken any medication for this at home. Reports LMP last week, but only spotting. States she has irregular periods. Denies current sexual activity. Review of Systems Constitutional: Negative for chills and fever. Respiratory: Negative. Cardiovascular: Negative. Gastrointestinal: Negative for abdominal pain, nausea and vomiting. Genitourinary: Positive for frequency. Negative for dysuria, flank pain, hematuria and urgency. Musculoskeletal: Negative for back pain. BP 114/86 Pulse 98 Temp 37.1 C (98.7 F) Resp 21 Wt 130.4 kg (287 lb 6.4 oz) LMP 06/03/2021 (Approximate) SpO2 99% BMI 39.40 kg/m PAST MEDICAL HISTORY Diagnosis Date Marfan's syndrome VIRAL WARTS NOS 06/25/2008 resolved PAST SURGICAL HISTORY Procedure Laterality Date EYE SURGERY HX 05/02/15 detached retina EYE SURGERY HX 08/19/2018 right sided secondary lens implant PAST SURGICAL HISTORY OF sherwin eyes PAST SURGICAL HISTORY OF right leg broken-surgery ALLERGIES Patient has no known allergies. MEDICATIONS amphetamine-dextroamphetamine XR (ADDERALL XR) 10 mg 24 hr capsule Take 1 capsule by mouth every morning for 30 days. amphetamine-dextroamphetamine XR (ADDERALL XR) 30 mg 24 hr capsule Take 1 capsule by mouth every morning for 30 days. methylphenidate (RITALIN) 20 mg tablet Take 1 tablet by mouth as needed for up to 30 days. Take at approx. 3-4 pm. topiramate (TOPAMAX) 25 mg tablet Take 1 tablet by mouth twice daily. ARIPiprazole (ABILIFY) 2 mg tablet Take 2 mg by mouth once daily. (Patient not taking: Reported on 02/20/2022) PAROXETINE HCL (PAXIL ORAL) Take by mouth. (Patient not taking: Reported on 02/20/2022) FAMILY HISTORY Problem Relation Age of Onset other (Marfan's) Mother None Father other (Marfan's) Brother other (mood issues) Brother Osteoporosis Maternal Grandmother other (Marfan's) Maternal Grandfather None Paternal Grandmother Heart Paternal Grandfather pace maker No Ocular Disease Other Social History Tobacco Use Smoking status: Some Days Smokeless tobacco: Never Vaping Use Vaping Use: current everyday user Substance Use Topics Alcohol use: Yes Comment: occasional Drug use: No Objective Physical Exam Vitals and nursing note reviewed. Exam conducted with a engraver rubber present. Constitutional: Appearance: She is obese. Cardiovascular: Rate and Rhythm: Normal rate and regular rhythm. Heart sounds: Normal heart sounds. Pulmonary: Effort: Pulmonary effort is normal. Breath sounds: Normal breath sounds. Abdominal: General: There is no distension. Palpations: Abdomen is soft. There is no mass. Tenderness: There is no abdominal tenderness. There is no right CVA tenderness, left CVA tenderness or guarding. Genitourinary: General: Normal vulva. Exam position: Lithotomy position. Labia: Right: No rash, tenderness or lesion. Left: No rash, tenderness or lesion. Vagina: Normal. Cervix: Discharge (light brown) present. Comments: Exam performed by TRANSACTIONAL ATTORNEY student with [employer] engraver rubber/preceptor at bedside. Skin: General: Skin is warm and dry. Neurological: Mental Status: She is alert. ASSESSMENT/PLAN: 1. Abnormal urination - ICD9: 788.69, ICD10: R39.198 (primary diagnosis) - UA DIP, URINE (POC) - URINE CULTURE 2. Irregular periods - ICD9: 626.4, ICD10: N92.6 - HCG QUAL UR B/O ASSESSMENT/PLAN: 3. Acute vaginitis - ICD9: 616.10, ICD10: N76.0 - YEIMY / TRICHOMONAS AMPLIFICATION - BACTERIAL VAGINOSIS AMPLIFICATION - GC/CHLAMYDIA DNA DET Maye Rubalcava TRANSACTIONAL ATTORNEY student - Follow-up with your PCP in 3-5 days if symptoms have not improved or sooner if symptoms worsen - Discussed red flags and need for immediate medical evaluation if any occur. - Discussed supportive care treatment with fluids, rest and analgesia. - Discussed expected course of illness TEACHING PROVIDER (Physician/PA/TRANSACTIONAL ATTORNEY) NOTE OF PERSONAL INVOLVEMENT IN CARE: I have personally seen and examined the patient and performed the medical decision-making components. I have reviewed the Advanced Practice Registered Nurse (TRANSACTIONAL ATTORNEY) Student's documentation and verified the findings in the note as written. Any additions or changes are noted in bold/italics. Signature: Kera Joseph Date: 02/27/2022 Time: 3:33 PM documented in this encounter [facility] 02-20-2022 Instructions Kera Joseph APRN.HEAD OF ENGLISH - 02/20/2022 7:22 PM EDT ASSESSMENT/PLAN: 1. Foot pain, right - ICD9: 729.5, ICD10: M79.671 (primary diagnosis) - XR FOOT GENERAL 3V AP/LAT/OBL RIGHT 2. Acute right ankle pain - ICD9: 719.47, 338.19, ICD10: M25.571 - XR ANKLE GENERAL 3V AP/LAT/OBL RIGHT IMPRESSION: RIGHT ANKLE: Within normal limits. No bone or joint abnormalities seen. RIGHT FOOT: Within normal limits. No acute findings. Product Support Specialist: SILVIANO Transcribe Date/Time: Feb 20 2022 7:11P Dictated by : ISAIAS SMYTH MD - RICE therapy - may take ibuprofen or aleve for pain. - Follow-up with your PCP in 3-5 days if symptoms have not improved or sooner if symptoms worsen - Discussed red flags and need for immediate medical evaluation if any occur. - Discussed supportive care treatment with fluids, rest and analgesia. - Discussed expected course of illness Kera Joseph APRN.HEAD OF ENGLISH R.I.C.E. The general care of your injury includes the following: Resting, Icing, Compressing and Elevating the injured area. Remember this as RICE. REST: Limit the use of the injured body part. ICE: By applying ice to the affected area, swelling and pain can be reduced. Place some ice cubes in a re-sealable (Ziploc) bag and add some water. Put a thin washcloth between the bag and your skin. Apply the ice bag to the area for at least 20 minutes. Do this at least 4 times per day. Using the ice for longer times and more frequently is OK. NEVER APPLY ICE DIRECTLY TO THE SKIN. COMPRESS: Compression means to apply pressure around the injured area such as with a splint, cast or an kathy bandage. Compression decreases swelling and improves comfort. Compression should be tight enough to relieve swelling but not so tight as to decrease circulation. Increasing pain, numbness, tingling, or change in skin color, are all signs of decreased circulation. ELEVATE: Elevate the injured part. For example, elevate your foot by placing it on a chair while sitting, or propping it up on pillows when lying down. documented in this encounter [facility] 02-20-2022 History of Present illness Narrative Images from the original note were not included. Subjective Trauma Pertinent negatives include no fever or rash. Katie Forde is a 21 year old female who presents with right foot and ankle pain. She sprained her ankle on 01/24 and went to the ER. She had an xray done which was normal. She was given an air cast but it hurt to wear so she did not use it. She states it hurts if she puts any pressure on it. Review of Systems Constitutional: Negative for fever. Musculoskeletal: Positive for joint pain. Negative for falls. Skin: Negative for itching and rash. BP 118/90 Pulse 108 Temp 37.2 C (99 F) Resp 21 Wt 129.8 kg (286 lb 3.2 oz) LMP 06/03/2021 (Approximate) SpO2 100% BMI 39.24 kg/m PAST MEDICAL HISTORY Diagnosis Date Marfan's syndrome VIRAL WARTS NOS 06/25/2008 resolved PAST SURGICAL HISTORY Procedure Laterality Date EYE SURGERY HX 05/02/15 detached retina EYE SURGERY HX 08/19/2018 right sided secondary lens implant PAST SURGICAL HISTORY OF sherwin eyes PAST SURGICAL HISTORY OF right leg broken-surgery ALLERGIES Patient has no known allergies. MEDICATIONS amphetamine-dextroamphetamine XR (ADDERALL XR) 10 mg 24 hr capsule Take 1 capsule by mouth every morning for 30 days. amphetamine-dextroamphetamine XR (ADDERALL XR) 30 mg 24 hr capsule Take 1 capsule by mouth every morning for 30 days. methylphenidate (RITALIN) 20 mg tablet Take 1 tablet by mouth as needed for up to 30 days. Take at approx. 3-4 pm. topiramate (TOPAMAX) 25 mg tablet Take 1 tablet by mouth twice daily. ARIPiprazole (ABILIFY) 2 mg tablet Take 2 mg by mouth once daily. (Patient not taking: Reported on 02/20/2022) PAROXETINE HCL (PAXIL ORAL) Take by mouth. (Patient not taking: Reported on 02/20/2022) FAMILY HISTORY Problem Relation Age of Onset other (Marfan's) Mother None Father other (Marfan's) Brother other (mood issues) Brother Osteoporosis Maternal Grandmother other (Marfan's) Maternal Grandfather None Paternal Grandmother Heart Paternal Grandfather pace maker No Ocular Disease Other Social History Tobacco Use Smoking status: Some Days Smokeless tobacco: Never Vaping Use Vaping Use: current everyday user Substance Use Topics Alcohol use: Yes Comment: occasional Drug use: No Objective Physical Exam Vitals and nursing note reviewed. Constitutional: Appearance: Normal appearance. Musculoskeletal: Right ankle: No swelling, deformity or ecchymosis. Tenderness present over the lateral malleolus and medial malleolus. Normal range of motion. Normal pulse. Right foot: Normal range of motion and normal capillary refill. Tenderness present. No swelling, deformity, bony tenderness or crepitus. Normal pulse. Legs: Neurological: Mental Status: She is alert. ASSESSMENT/PLAN: 1. Foot pain, right - ICD9: 729.5, ICD10: M79.671 (primary diagnosis) - XR FOOT GENERAL 3V AP/LAT/OBL RIGHT 2. Acute right ankle pain - ICD9: 719.47, 338.19, ICD10: M25.571 - XR ANKLE GENERAL 3V AP/LAT/OBL RIGHT IMPRESSION: RIGHT ANKLE: Within normal limits. No bone or joint abnormalities seen. RIGHT FOOT: Within normal limits. No acute findings. Product Support Specialist: SILVIANO Transcribe Date/Time: Feb 20 2022 7:11P Dictated by : ISAIAS SMYTH MD - RICE therapy - may take ibuprofen or aleve for pain. - Follow-up with your PCP in 3-5 days if symptoms have not improved or sooner if symptoms worsen - Discussed red flags and need for immediate medical evaluation if any occur. - Discussed supportive care treatment with fluids, rest and analgesia. - Discussed expected course of illness Kera Joseph APRN.MRELIN documented in this encounter [facility] 01-30-2022 Miscellaneous Notes The following approved medication requests have been transmitted electronically. PDMP website checked and validated. All prescriptions have been APPROPRIATELY filled. No suspicious activity was identified. 01/30/2022 by Estrellita Underwood PA-C Signed Prescriptions Disp Refills amphetamine-dextroamphetamine XR (ADDERALL XR) 10 mg 24 hr capsule 30 capsule 0 Sig: Take 1 capsule by mouth every morning for 30 days. OTTO Class: C-II NANCY: No Authorizing Provider: ESTRELLITA UNDERWOOD amphetamine-dextroamphetamine XR (ADDERALL XR) 30 mg 24 hr capsule 30 capsule 0 Sig: Take 1 capsule by mouth every morning for 30 days. OTTO Class: C-II NANCY: No Authorizing Provider: ESTRELLITA UNDERWOOD methylphenidate (RITALIN) 20 mg tablet 30 tablet 0 Sig: Take 1 tablet by mouth as needed for up to 30 days. Take at approx. 3-4 pm. OTTO Class: C-II NANCY: No Authorizing Provider: ESTRELLITA UNDERWOOD PA-C Last WCC: greater than one year ago Last ADHD / Med Check visit: 09/11/2021 and appointment scheduled for 03/12/2022 Verify RX Benefits Completed Last medication refill date: 01/04/2022 Requesting 30 day supply Retail pharmacy updated: Completed Patient aware RX will be sent to pharmacy. No need to notify patient. Immunizations due: COVID-19 VACCINE(1) Never done PNEUMOCOCCAL(1 - PCV) Never done MENINGOCOCCAL B: Consider based on risk(1 of 2 - Risk Bexsero 2-dose series) Never done HEPATITIS C SCREENING Never done HIV SCREENING Never done DEPRESSION SCREENING due on 09/09/2019 DTAP,TDAP,TD(7 - Td or Tdap) due on 03/20/2020 Jo-Ann Carreon LPN documented in this encounter [facility] 01-04-2022 Miscellaneous Notes SPECIFIC NOTES (if applicable): GENERAL INFORMATION - The listed prescriptions have been signed. If applicable, please notify the patient/family. - Unless noted in the intake documentation, I assume the medications are being used as directed; the patient is doing well; there are no side effects; and there are no undocumented medications or allergies. - This note was created using a speech to text program. There may be some incorrect words, spellings, and punctuation that were missed on review. Antonio Smalls M.D. Last WCC: greater than one year ago Last ADHD / Med Check visit: 09/11/21 and appointment scheduled for 03/12/22 Verify RX Benefits Completed Last medication refill date: 12/07/21 Requesting 30 day supply Retail pharmacy updated: Completed Patient aware RX will be sent to pharmacy. No need to notify patient. Immunizations due: COVID-19 VACCINE(1) Never done PNEUMOCOCCAL(1 - PCV) Never done MENINGOCOCCAL B: Consider based on risk(1 of 2 - Risk Bexsero 2-dose series) Never done HEPATITIS C SCREENING Never done HIV SCREENING Never done DEPRESSION SCREENING due on 09/09/2019 DTAP,TDAP,TD(7 - Td or Tdap) due on 03/20/2020 [place] clinical lab scientist documented in this encounter [facility] 12-07-2021 Miscellaneous Notes Patient's request for medication is as follows: Signed Prescriptions: Disp Refills amphetamine-dextroamphetamine XR 30 capsule0 (ADDERALL XR) 10 mg 24 hr capsule Sig: Take 1 capsule by mouth every morning for 30 days. OTTO Class: C-II NANCY: No Authorizing Provider: HEMALATHA DEJESUS amphetamine-dextroamphetamine XR 30 capsule0 (ADDERALL XR) 30 mg 24 hr capsule Sig: Take 1 capsule by mouth every morning for 30 days. OTTO Class: C-II NANCY: No Authorizing Provider: HEMALATHA DEJESUS methylphenidate (RITALIN) 20 mg tablet 30 tablet 0 Sig: Take 1 tablet by mouth as needed for up to 30 days. Take at approx. 3-4 pm. OTTO Class: C-II NANCY: No Authorizing Provider: HEMALATHA DEJESUS Prescription(s) as above. Please process accordingly. Hemalatha Dejesus MD Last WCC: greater than one year ago Last ADHD / Med Check visit: 09/11/2021 Verify RX Benefits Completed Last medication refill date: 11/07/2021 Requesting 30 day supply Retail pharmacy updated: Completed Patient aware RX will be sent to pharmacy. No need to notify patient. Immunizations due: COVID-19 VACCINE(1) Never done PNEUMOCOCCAL(1 - PCV) Never done MENINGOCOCCAL B: Consider based on risk(1 of 2 - Risk Bexsero 2-dose series) Never done HEPATITIS C SCREENING Never done HIV SCREENING Never done DEPRESSION SCREENING due on 09/09/2019 DTAP,TDAP,TD(7 - Td or Tdap) due on 03/20/2020 Jo-Ann Carreon LPN documented in this encounter [facility] 11-07-2021 Miscellaneous Notes The following approved medication requests have been transmitted electronically. Pending Prescriptions: Disp Refills amphetamine-dextroamphetamine XR 30 capsule0 (ADDERALL XR) 10 mg 24 hr capsule Sig: Take 1 capsule by mouth every morning for 30 days. OTTO Class: C-II NANCY: No amphetamine-dextroamphetamine XR 30 capsule0 (ADDERALL XR) 30 mg 24 hr capsule Sig: Take 1 capsule by mouth every morning for 30 days. OTTO Class: C-II NANCY: No methylphenidate (RITALIN) 20 mg tablet 30 tablet 0 Sig: Take 1 tablet by mouth as needed for up to 30 days. Take at approx. 3-4 pm. OTTO Class: C-II NANCY: No Kishor Abdul MD Last WCC: greater than one year ago Last ADHD / Med Check visit: 09-11-21 Verify RX Benefits Completed Last medication refill date: 10-09-21 Requesting 30 day supply Retail pharmacy updated: Completed Patient aware RX will be sent to pharmacy. No need to notify patient. Immunizations due: COVID-19 VACCINE(1) Never done MENINGOCOCCAL B: Consider based on risk(1 of 2 - Risk Bexsero 2-dose series) Never done HEPATITIS C SCREENING Never done HIV SCREENING Never done DEPRESSION SCREENING due on 09/09/2019 DTAP,TDAP,TD(7 - Td or Tdap) due on 03/20/2020 Dylan Aldridge RN documented in this encounter [facility] 10-11-2021 Miscellaneous Notes Patient aware. Sp Franco RN Please let the patient know that the AST and ALT continue to show significant improvement since the last measurement. Sedimentation rate is essentially unchanged. I would recommend repeating the labs in 6 months. Order has been placed. This note was created using a speech to text program. There may be some incorrect words, spellings, and punctuation that were missed on review. Antonio Smalls M.D. documented in this encounter [facility] 10-09-2021 Miscellaneous Notes SPECIFIC NOTES (if applicable): GENERAL INFORMATION - The listed prescriptions have been signed. If applicable, please notify the patient/family. - Unless noted in the intake documentation, I assume the medications are being used as directed; the patient is doing well; there are no side effects; and there are no undocumented medications or allergies. - This note was created using a speech to text program. There may be some incorrect words, spellings, and punctuation that were missed on review. Antonio Smalls M.D. Last WCC: greater than one year ago Last ADHD / Med Check visit: 09/11/2021 Verify RX Benefits Completed Last medication refill date: 09/11/2021 Requesting 30 day supply Retail pharmacy updated: Completed Patient aware RX will be sent to pharmacy. No need to notify patient. Immunizations due: COVID-19 VACCINE(1) Never done MENINGOCOCCAL B: Consider based on risk(1 of 2 - Risk Bexsero 2-dose series) Never done HEPATITIS C SCREENING Never done HIV SCREENING Never done DEPRESSION SCREENING due on 09/09/2019 DTAP,TDAP,TD(7 - Td or Tdap) due on 03/20/2020 Jo-Ann Carreon LPN documented in this encounter [facility] documented as of this encounter (statuses as of 10/09/2021) [facility] History of Past illness Narrative* Problem Noted Date Resolved Date Delayed immunizations 11/19/2012 01/23/2016 Viral warts, unspecified 06/25/2008 012 documented as of this encounter (statuses as of 10/11/2021) [facility] History of Past illness Narrative* Problem Noted Date Resolved Date Delayed immunizations 11/19/2012 01/23/2016 Viral warts, unspecified 06/25/2008 012 documented as of this encounter (statuses as of 11/07/2021) [facility] of Past illness Narrative* Problem Noted Date Resolved Date Delayed immunizations 11/19/2012 01/23/2016 Viral warts, unspecified 06/25/2008 012 documented as of this encounter (statuses as of 12/07/2021) [facility] of Past illness Narrative* Problem Noted Date Resolved Date Delayed immunizations 11/19/2012 01/23/2016 Viral warts, unspecified 06/25/2008 012 documented as of this encounter (statuses as of 01/04/2022) [facility] of [facility] illness Narrative* Problem Noted Date Resolved Date Delayed immunizations 11/19/2012 01/23/2016 Viral warts, unspecified 06/25/2008 012 documented as of this encounter (statuses as of 01/31/2022) [facility] of [facility] illness Narrative* Problem Noted Date Resolved Date Delayed immunizations 11/19/2012 01/23/2016 Viral warts, unspecified 06/25/2008 012 documented as of this encounter (statuses as of 02/20/2022) [facility] Narrative* Problem Noted Date Resolved Date Delayed immunizations 11/19/2012 01/23/2016 Viral warts, unspecified 06/25/2008 012 documented as of this encounter (statuses as of 02/27/2022) [facility] Narrative* Problem Noted Date Resolved Date Delayed immunizations 11/19/2012 01/23/2016 Viral warts, unspecified 06/25/2008 012 documented as of this encounter (statuses as of 03/01/2022) [facility] Narrative* Problem Noted Date Resolved Date Delayed immunizations 11/19/2012 01/23/2016 Viral warts, unspecified 06/25/2008 012 documented as of this encounter (statuses as of 03/12/2022) [facility] Narrative* Problem Noted Date Resolved Date Delayed immunizations 11/19/2012 01/23/2016 Viral warts, unspecified 06/25/2008 012 documented as of this encounter (statuses as of 03/13/2022) [facility] Narrative* Problem Noted Date Resolved Date Delayed immunizations 11/19/2012 01/23/2016 Viral warts, unspecified 06/25/2008 012 documented as of this encounter (statuses as of 03/29/2022) [facility] Narrative* Problem Noted Date Resolved Date Delayed immunizations 11/19/2012 01/23/2016 Viral warts, unspecified 06/25/2008 012 documented as of this encounter (statuses as of 04/04/2022) [facility] Narrative* Problem Noted Date Resolved Date Delayed immunizations 11/19/2012 01/23/2016 Viral warts, unspecified 06/25/2008 012 documented as of this encounter (statuses as of 04/05/2022) [facility] Narrative* Problem Noted Date Resolved Date Delayed immunizations 11/19/2012 01/23/2016 Viral warts, unspecified 06/25/2008 012 documented as of this encounter (statuses as of 04/18/2022) [facility] Narrative* Problem Noted Date Resolved Date Delayed immunizations 11/19/2012 01/23/2016 Viral warts, unspecified 06/25/2008 012 documented as of this encounter (statuses as of 04/19/2022) [facility] Narrative* Problem Noted Date Resolved Date Delayed immunizations 11/19/2012 01/23/2016 Viral warts, unspecified 06/25/2008 012 documented as of this encounter (statuses as of 04/30/2022) [facility] Narrative* Problem Noted Date Resolved Date Delayed immunizations 11/19/2012 01/23/2016 Viral warts, unspecified 06/25/2008 012 documented as of this encounter (statuses as of 05/09/2022) [facility] Narrative* Problem Noted Date Resolved Date Delayed immunizations 11/19/2012 01/23/2016 Viral warts, unspecified 06/25/2008 012 documented as of this encounter (statuses as of 05/09/2022) [facility] Narrative* Problem Noted Date Resolved Date Delayed immunizations 11/19/2012 01/23/2016 Viral warts, unspecified 06/25/2008 012 documented as of this encounter (statuses as of 05/13/2022) [facility] Narrative* Problem Noted Date Resolved Date Delayed immunizations 11/19/2012 01/23/2016 Viral warts, unspecified 06/25/2008 012 documented as of this encounter (statuses as of 05/24/2022) [facility] Narrative* Problem Noted Date Resolved Date Delayed immunizations 11/19/2012 01/23/2016 Viral warts, unspecified 06/25/2008 012 documented as of this encounter (statuses as of 05/30/2022) [facility] Narrative* Problem Noted Date Resolved Date Delayed immunizations 11/19/2012 01/23/2016 Viral warts, unspecified 06/25/2008 012 documented as of this encounter (statuses as of 05/31/2022) [facility] Narrative* Problem Noted Date Resolved Date Delayed immunizations 11/19/2012 01/23/2016 Viral warts, unspecified 06/25/2008 012 documented as of this encounter (statuses as of 06/03/2022) [facility] History of Past illness Narrative* Problem Noted Date Resolved Date Delayed immunizations 11/19/2012 01/23/2016 Viral warts, unspecified 06/25/2008 012 documented as of this encounter (statuses as of 06/06/2022) [facility] History of Past illness Narrative* Problem Noted Date Resolved Date Delayed immunizations 11/19/2012 01/23/2016 Viral warts, unspecified 06/25/2008 012 documented as of this encounter (statuses as of 06/07/2022) [facility] History of Past illness Narrative* Problem Noted Date Resolved Date Delayed immunizations 11/19/2012 01/23/2016 Viral warts, unspecified 06/25/2008 012 documented as of this encounter (statuses as of 06/11/2022) [facility] History of Past illness Narrative* Problem Noted Date Resolved Date Delayed immunizations 11/19/2012 01/23/2016 Viral warts, unspecified 06/25/2008 012 documented as of this encounter (statuses as of 06/11/2022) [facility] History of Past illness Narrative* Problem Noted Date Resolved Date Delayed immunizations 11/19/2012 01/23/2016 Viral warts, unspecified 06/25/2008 012 documented as of this encounter (statuses as of 06/12/2022) [facility] History of Past illness Narrative* Problem Noted Date Resolved Date Delayed immunizations 11/19/2012 01/23/2016 Viral warts, unspecified 06/25/2008 012 documented as of this encounter (statuses as of 06/13/2022) [facility] History of Past illness Narrative* Problem Noted Date Resolved Date Delayed immunizations 11/19/2012 01/23/2016 Viral warts, unspecified 06/25/2008 012 documented as of this encounter (statuses as of 07/04/2022) [facility] History of Past illness Narrative* Problem Noted Date Resolved Date Delayed immunizations 11/19/2012 01/23/2016 Viral warts, unspecified 06/25/2008 012 documented as of this encounter (statuses as of 07/04/2022) [facility] History of Past illness Narrative* Problem Noted Date Resolved Date Delayed immunizations 11/19/2012 01/23/2016 Viral warts, unspecified 06/25/2008 012 documented as of this encounter (statuses as of 07/05/2022) [facility] History of Past illness Narrative* Problem Noted Date Resolved Date Delayed immunizations 11/19/2012 01/23/2016 Viral warts, unspecified 06/25/2008 012 documented as of this encounter (statuses as of 07/06/2022) [facility] History of Past illness Narrative* Problem Noted Date Resolved Date Delayed immunizations 11/19/2012 01/23/2016 Viral warts, unspecified 06/25/2008 012 documented as of this encounter (statuses as of 07/08/2022) [facility] History of Past illness Narrative* Problem Noted Date Resolved Date Delayed immunizations 11/19/2012 01/23/2016 Viral warts, unspecified 06/25/2008 012 documented as of this encounter (statuses as of 07/09/2022) [facility] History of Past illness Narrative* Problem Noted Date Resolved Date Delayed immunizations 11/19/2012 01/23/2016 Viral warts, unspecified 06/25/2008 012 documented as of this encounter (statuses as of 07/09/2022) [facility] History of Past illness Narrative* Problem Noted Date Resolved Date Delayed immunizations 11/19/2012 01/23/2016 Viral warts, unspecified 06/25/2008 012 documented as of this encounter (statuses as of 07/18/2022) [facility] History of Past illness Narrative* Problem Noted Date Resolved Date Delayed immunizations 11/19/2012 01/23/2016 Viral warts, unspecified 06/25/2008 012 documented as of this encounter (statuses as of 08/06/2022) [facility] History of Past illness Narrative* Problem Noted Date Resolved Date Delayed immunizations 11/19/2012 01/23/2016 Viral warts, unspecified 06/25/2008 012 documented as of this encounter (statuses as of 08/07/2022) [facility] History of Past illness Narrative* Problem Noted Date Resolved Date Delayed immunizations 11/19/2012 01/23/2016 Viral warts, unspecified 06/25/2008 012 documented as of this encounter (statuses as of 08/09/2022) [facility] History of Past illness Narrative* Problem Noted Date Resolved Date Delayed immunizations 11/19/2012 01/23/2016 Viral warts, unspecified 06/25/2008 012 documented as of this encounter (statuses as of 08/15/2022) [facility] History of Past illness Narrative* Problem Noted Date Resolved Date Delayed immunizations 11/19/2012 01/23/2016 Viral warts, unspecified 06/25/2008 012 documented as of this encounter (statuses as of 08/23/2022) [facility] History of Past illness Narrative* Problem Noted Date Resolved Date Delayed immunizations 11/19/2012 01/23/2016 Viral warts, unspecified 06/25/2008 012 documented as of this encounter (statuses as of 08/27/2022) [facility] History of Past illness Narrative* Problem Noted Date Resolved Date Delayed immunizations 11/19/2012 01/23/2016 Viral warts, unspecified 06/25/2008 012 documented as of this encounter (statuses as of 08/29/2022) [facility] History of Past illness Narrative* Problem Noted Date Resolved Date Delayed immunizations 11/19/2012 01/23/2016 Viral warts, unspecified 06/25/2008 012 documented as of this encounter (statuses as of 09/02/2022) [facility] History of Past illness Narrative* Problem Noted Date Resolved Date Delayed immunizations 11/19/2012 01/23/2016 Viral warts, unspecified 06/25/2008 012 documented as of this encounter (statuses as of 09/03/2022) [facility] History of Past illness Narrative* Problem Noted Date Resolved Date Delayed immunizations 11/19/2012 01/23/2016 Viral warts, unspecified 06/25/2008 012 documented as of this encounter (statuses as of 09/05/2022) [facility] History of Past illness Narrative* Problem Noted Date Resolved Date Delayed immunizations 11/19/2012 01/23/2016 Viral warts, unspecified 06/25/2008 012 documented as of this encounter (statuses as of 09/06/2022) [facility] History of Past illness Narrative* Problem Noted Date Resolved Date Delayed immunizations 11/19/2012 01/23/2016 Viral warts, unspecified 06/25/2008 012 documented as of this encounter (statuses as of 09/09/2022) [facility] History of Past illness Narrative* Problem Noted Date Resolved Date Delayed immunizations 11/19/2012 01/23/2016 Viral warts, unspecified 06/25/2008 012 documented as of this encounter (statuses as of 09/10/2022) [facility] History of Past illness Narrative* Problem Noted Date Resolved Date Delayed immunizations 11/19/2012 01/23/2016 Viral warts, unspecified 06/25/2008 012 documented as of this encounter (statuses as of 09/10/2022) [facility] History of Past illness Narrative* Problem Noted Date Resolved Date Delayed immunizations 11/19/2012 01/23/2016 Viral warts, unspecified 06/25/2008 012 documented as of this encounter (statuses as of 09/17/2022) [facility] History of Past illness Narrative* Problem Noted Date Resolved Date Delayed immunizations 11/19/2012 01/23/2016 Viral warts, unspecified 06/25/2008 012 documented as of this encounter (statuses as of 09/30/2022) [facility] History of Past illness Narrative* Problem Noted Date Resolved Date Delayed immunizations 11/19/2012 01/23/2016 Viral warts, unspecified 06/25/2008 012 documented as of this encounter (statuses as of 10/10/2022) [facility] History of Past illness Narrative* Problem Noted Date Resolved Date Delayed immunizations 11/19/2012 01/23/2016 Viral warts, unspecified 06/25/2008 012 documented as of this encounter (statuses as of 10/10/2022) [facility] History of Past illness Narrative* Problem Noted Date Resolved Date Delayed immunizations 11/19/2012 01/23/2016 Viral warts, unspecified 06/25/2008 012 documented as of this encounter (statuses as of 10/10/2022) [facility] History of Past illness Narrative* Problem Noted Date Resolved Date Delayed immunizations 11/19/2012 01/23/2016 Viral warts, unspecified 06/25/2008 012 documented as of this encounter (statuses as of 10/12/2022) [facility] History of Past illness Narrative* Problem Noted Date Resolved Date Delayed immunizations 11/19/2012 01/23/2016 Viral warts, unspecified 06/25/2008 012 documented as of this encounter (statuses as of 10/29/2022) [facility] History of Past illness Narrative* Problem Noted Date Resolved Date Delayed immunizations 11/19/2012 01/23/2016 Viral warts, unspecified 06/25/2008 012 documented as of this encounter (statuses as of 11/04/2022) [facility] History of Past illness Narrative* Problem Noted Date Resolved Date Delayed immunizations 11/19/2012 01/23/2016 Viral warts, unspecified 06/25/2008 012 documented as of this encounter (statuses as of 11/05/2022) [facility] History of Past illness Narrative* Problem Noted Date Resolved Date Delayed immunizations 11/19/2012 01/23/2016 Viral warts, unspecified 06/25/2008 012 documented as of this encounter (statuses as of 11/09/2022) [facility] History of Past illness Narrative* Problem Noted Date Resolved Date Delayed immunizations 11/19/2012 01/23/2016 Viral warts, unspecified 06/25/2008 012 documented as of this encounter (statuses as of 11/12/2022) [facility] History of Past illness Narrative* Problem Noted Date Resolved Date Delayed immunizations 11/19/2012 01/23/2016 Viral warts, unspecified 06/25/2008 012 documented as of this encounter (statuses as of 11/29/2022) [facility] History of Past illness Narrative* Problem Noted Date Resolved Date Delayed immunizations 11/19/2012 01/23/2016 Viral warts, unspecified 06/25/2008 012 documented as of this encounter (statuses as of 12/05/2022) [facility] History of Past illness Narrative* Problem Noted Date Resolved Date Delayed immunizations 11/19/2012 01/23/2016 Viral warts, unspecified 06/25/2008 012 documented as of this encounter (statuses as of 12/25/2022) [facility] History of Past illness Narrative* Problem Noted Date Resolved Date Delayed immunizations 11/19/2012 01/23/2016 Viral warts, unspecified 06/25/2008 012 documented as of this encounter (statuses as of 12/25/2022) [facility] History of Past illness Narrative* Problem Noted Date Resolved Date Delayed immunizations 11/19/2012 01/23/2016 Viral warts, unspecified 06/25/2008 012 documented as of this encounter (statuses as of 12/26/2022) [facility] History of Past illness Narrative* Problem Noted Date Resolved Date Delayed immunizations 11/19/2012 01/23/2016 Viral warts, unspecified 06/25/2008 012 documented as of this encounter (statuses as of 12/28/2022) [facility] History of Past illness Narrative* Problem Noted Date Resolved Date Delayed immunizations 11/19/2012 01/23/2016 Viral warts, unspecified 06/25/2008 012 documented as of this encounter (statuses as of 01/03/2023) [facility] History of Past illness Narrative* Problem Noted Date Diagnosed Date Resolved Date Delayed immunizations 11/19/20122015 Viral warts, unspecified 06/25/200803/2012 documented as of this encounter (statuses as of 01/10/2023) [facility] History of Past illness Narrative* Problem Noted Date Diagnosed Date Resolved Date Delayed immunizations 11/19/20122015 Viral warts, unspecified 06/25/200803/2012 documented as of this encounter (statuses as of 01/10/2023) [facility] History of Past illness Narrative* Problem Noted Date Diagnosed Date Resolved Date Delayed immunizations 11/19/20122015 Viral warts, unspecified 06/25/200803/2012 documented as of this encounter (statuses as of 01/11/2023) [facility] History of Past illness Narrative* Problem Noted Date Diagnosed Date Resolved Date Delayed immunizations 11/19/20122015 Viral warts, unspecified 06/25/200803/2012 documented as of this encounter (statuses as of 01/13/2023) [facility] History of Past illness Narrative* Problem Noted Date Diagnosed Date Resolved Date Delayed immunizations 11/19/20122015 Viral warts, unspecified 06/25/200803/2012 documented as of this encounter (statuses as of 01/14/2023) [facility] History of Past illness Narrative* Problem Noted Date Diagnosed Date Resolved Date Delayed immunizations 11/19/20122015 Viral warts, unspecified 06/25/200803/2012 documented as of this encounter (statuses as of 01/14/2023) [facility] History of Past illness Narrative* Problem Noted Date Diagnosed Date Resolved Date Delayed immunizations 11/19/20122015 Viral warts, unspecified 06/25/200803/2012 documented as of this encounter (statuses as of 01/14/2023) [facility] History of Past illness Narrative* Problem Noted Date Diagnosed Date Resolved Date Delayed immunizations 11/19/20122015 Viral warts, unspecified 06/25/200803/2012 documented as of this encounter (statuses as of 01/29/2023) [facility] History of Past illness Narrative* Problem Noted Date Diagnosed Date Resolved Date Delayed immunizations 11/19/20122015 Viral warts, unspecified 06/25/200803/2012 documented as of this encounter (statuses as of 01/30/2023) [facility] History of Past illness Narrative* Problem Noted Date Diagnosed Date Resolved Date Delayed immunizations 11/19/20122015 Viral warts, unspecified 06/25/200803/2012 documented as of this encounter (statuses as of 02/06/2023) [facility] History of Past illness Narrative* Problem Noted Date Diagnosed Date Resolved Date Delayed immunizations 11/19/20122015 Viral warts, unspecified 06/25/200803/2012 documented as of this encounter (statuses as of 02/19/2023) [facility] History of Past illness Narrative* Problem Noted Date Diagnosed Date Resolved Date Delayed immunizations 11/19/20122015 Viral warts, unspecified 06/25/200803/2012 documented as of this encounter (statuses as of 02/25/2023) [facility] History of Past illness Narrative* Problem Noted Date Diagnosed Date Resolved Date Delayed immunizations 11/19/20122015 Viral warts, unspecified 06/25/200803/2012 documented as of this encounter (statuses as of 03/12/2023) [facility] History of Past illness Narrative* Problem Noted Date Diagnosed Date Resolved Date Delayed immunizations 11/19/20122015 Viral warts, unspecified 06/25/200803/2012 documented as of this encounter (statuses as of 03/12/2023) [facility] History of Past illness Narrative* Problem Noted Date Diagnosed Date Resolved Date Delayed immunizations 11/19/20122015 Viral warts, unspecified 06/25/200803/2012 documented as of this encounter (statuses as of 03/18/2023) [facility] History of Past illness Narrative* Problem Noted Date Diagnosed Date Resolved Date Delayed immunizations 11/19/20122015 Viral warts, unspecified 06/25/200803/2012 documented as of this encounter (statuses as of 03/21/2023) [facility] History of Past illness Narrative* Problem Noted Date Diagnosed Date Resolved Date Delayed immunizations 11/19/20122015 Viral warts, unspecified 06/25/200803/2012 documented as of this encounter (statuses as of 04/09/2023) [facility] History of Past illness Narrative* Problem Noted Date Diagnosed Date Resolved Date Delayed immunizations 11/19/20122015 Viral warts, unspecified 06/25/200803/2012 documented as of this encounter (statuses as of 04/16/2023) [facility] History of Past illness Narrative* Problem Noted Date Diagnosed Date Resolved Date Delayed immunizations 11/19/20122015 Viral warts, unspecified 06/25/200803/2012 documented as of this encounter (statuses as of 04/22/2023) [facility] History of Past illness Narrative* Problem Noted Date Diagnosed Date Resolved Date Delayed immunizations 11/19/20122015 Viral warts, unspecified 06/25/200803/2012 documented as of this encounter (statuses as of 05/04/2023) [facility] of Past illness Narrative* Problem Noted Date Diagnosed Date Resolved Date Delayed immunizations 11/19/20122015 Viral warts, unspecified 06/25/200803/2012 documented as of this encounter (statuses as of 05/04/2023) [facility] of Past illness Narrative* Problem Noted Date Diagnosed Date Resolved Date Delayed immunizations 11/19/20122015 Viral warts, unspecified 06/25/200803/2012 documented as of this encounter (statuses as of 05/04/2023) [facility] of Past illness Narrative* Problem Noted Date Diagnosed Date Resolved Date Delayed immunizations 11/19/20122015 Viral warts, unspecified 06/25/200803/2012 documented as of this encounter (statuses as of 05/14/2023) [facility] History of Past illness Narrative* Problem Noted Date Diagnosed Date Resolved Date Delayed immunizations 11/19/20122015 Viral warts, unspecified 06/25/200803/2012 documented as of this encounter (statuses as of 05/15/2023) [facility] of Past illness Narrative* Problem Noted Date Diagnosed Date Resolved Date Delayed immunizations 11/19/20122015 Viral warts, unspecified 06/25/200803/2012 documented as of this encounter (statuses as of 05/20/2023) [facility] History of Past illness Narrative* Problem Noted Date Diagnosed Date Resolved Date Delayed immunizations 11/19/20122015 Viral warts, unspecified 06/25/200803/2012 documented as of this encounter (statuses as of 07/06/2023) [facility] note* Diagnosis Attention deficit hyperactivity disorder (ADHD), combined type [facility] Diagnosis Abnormal laboratory test- Primary Other abnormal clinical finding documented in this encounter [facility] note* Diagnosis Attention deficit hyperactivity disorder (ADHD), combined type [facility] Diagnosis Attention deficit hyperactivity disorder (ADHD), combined type [facility] Diagnosis Attention deficit hyperactivity disorder (ADHD), combined type documented in this encounter [facility] note* Diagnosis Foot pain, right- Primary Pain in limb Acute right ankle pain [facility]* Diagnosis Abnormal urination- Primary Other abnormality of urination Irregular periods Irregular menstrual cycle Acute vaginitis Vaginitis and vulvovaginitis, unspecified documented in this encounter [facility] note* Diagnosis Urinary tract infection without hematuria, site unspecified- Primary [facility] Diagnosis Attention deficit hyperactivity disorder (ADHD), combined type- Primary Migraine without status migrainosus, not intractable, unspecified migraine type Anxiety Anxiety state, unspecified Pain in right foot Pain in limb Encounter for immunization Need for other specified prophylactic vaccination against single bacterial disease [facility]* Diagnosis Skin tag of anus- Primary Residual hemorrhoidal skin tags Irregular menstrual cycle [facility] Diagnosis Abnormal laboratory test- Primary Other abnormal clinical finding [facility] Diagnosis Abnormal laboratory test- Primary Other abnormal clinical finding Malaise and fatigue Other malaise and fatigue Diarrhea, unspecified type Abdominal pain, unspecified abdominal location [facility]* Diagnosis Attention deficit hyperactivity disorder (ADHD), combined type [facility] Diagnosis Fatty liver- Primary Other chronic nonalcoholic liver disease Abnormal laboratory test Other abnormal clinical finding Malaise and fatigue Other malaise and fatigue Diarrhea, unspecified type Abdominal pain, unspecified abdominal location Nausea Nausea alone [facility] Diagnosis Irregular menstrual cycle- Primary [facility] Diagnosis Attention deficit hyperactivity disorder (ADHD), combined type [facility]* Diagnosis Attention deficit hyperactivity disorder (ADHD), combined type [facility] Diagnosis Fatty liver- Primary Other chronic nonalcoholic liver disease Elevated LFTs Other abnormal blood chemistry [facility] Diagnosis Chronic rhinitis- Primary Dysfunction of both eustachian tubes Dysfunction of Eustachian tube Chronic cough Cough Shortness of breath [facility] Diagnosis Fatty liver- Primary Other chronic nonalcoholic liver disease Elevated LFTs Other abnormal blood chemistry [facility]* Diagnosis Attention deficit hyperactivity disorder (ADHD), combined type [facility]* Diagnosis Attention deficit hyperactivity disorder (ADHD), combined type [facility]* Diagnosis Sinobronchitis- Primary Unspecified sinusitis (chronic) [facility] Diagnosis Fatty liver- Primary Other chronic nonalcoholic liver disease Malaise and fatigue Other malaise and fatigue [facility] Diagnosis Vitamin D deficiency- Primary Unspecified vitamin D deficiency [facility] Diagnosis Attention deficit hyperactivity disorder (ADHD), combined type [facility]* Diagnosis Leukocytosis, unspecified type- Primary Thrombocytosis Essential thrombocythemia [facility] Diagnosis Sore throat- Primary Acute pharyngitis [facility]* Diagnosis Suspected sleep apnea- Primary Malaise and fatigue Other malaise and fatigue Snoring Other dyspnea and respiratory abnormality Chronic fatigue Other malaise and fatigue [facility]* Diagnosis Obesity, Class III, BMI >= 40- Primary Morbid obesity Precordial pain [facility]* Diagnosis Attention deficit hyperactivity disorder (ADHD), combined type [facility]* Diagnosis Migraine without status migrainosus, not intractable, unspecified migraine type- Primary Encounter for immunization Need for other specified prophylactic vaccination against single bacterial disease Screening for HIV (human immunodeficiency virus) Special screening examination for other specified viral diseases Attention deficit hyperactivity disorder (ADHD), combined type SOBOE (shortness of breath on exertion) Shortness of breath Obesity, Class III, BMI >= 40 Morbid obesity [facility]* Diagnosis URI, acute- Primary Acute upper respiratory infections of unspecified site Acute otitis media, left Unspecified otitis media documented [facility]* Diagnosis SOBOE (shortness of breath on exertion) Shortness of breath [facility] Diagnosis ESTEBAN (obstructive sleep apnea)- Primary Obstructive sleep apnea (adult) (pediatric) [facility]* Diagnosis Attention deficit hyperactivity disorder (ADHD), combined type [facility]* Diagnosis Sore throat- Primary Acute pharyngitis Other acute nonsuppurative otitis media of right ear, recurrence not specified [facility] Diagnosis Attention deficit hyperactivity disorder (ADHD), combined type [facility]* Diagnosis Vaginal discharge- Primary Leukorrhea, not specified as infective [facility]* Diagnosis ESTEBAN (obstructive sleep apnea)- Primary Obstructive sleep apnea (adult) (pediatric) [facility]* Diagnosis Attention deficit hyperactivity disorder (ADHD), combined type [facility]* Diagnosis Leukocytosis, unspecified type- Primary Thrombocytosis Essential thrombocythemia [facility]* Diagnosis Attention deficit hyperactivity disorder (ADHD), combined type- Primary Migraine without status migrainosus, not intractable, unspecified migraine type Heartburn [facility]* Diagnosis ESTEBAN (obstructive sleep apnea)- Primary Obstructive sleep apnea (adult) (pediatric) ESTEBAN on CPAP Obstructive sleep apnea (adult) (pediatric) [facility]* Diagnosis Attention deficit hyperactivity disorder (ADHD), combined type [facility]* Diagnosis Protracted URI- Primary Acute upper respiratory infections of unspecified site Non-recurrent acute serous otitis media of right ear [facility]* Diagnosis Secondary amenorrhea- Primary Absence of menstruation Missed menses Absence of menstruation [facility]* Diagnosis Attention deficit hyperactivity disorder (ADHD), combined type [facility]* Diagnosis Fatty liver- Primary Other chronic nonalcoholic liver disease Elevated LFTs Other abnormal blood chemistry Intermittent diarrhea [facility]* Diagnosis Fatty liver Other chronic nonalcoholic liver disease Elevated LFTs Other abnormal blood chemistry [facility]* Diagnosis Secondary amenorrhea Absence of menstruation [facility] Diagnosis Abnormal laboratory test Other abnormal clinical finding Malaise and fatigue Other malaise and fatigue Diarrhea, unspecified type Abdominal pain, unspecified abdominal location [facility] this [facility]* Diagnosis Vaginal odor- Primary Unspecified symptom associated with female genital organs [facility] Diagnosis Attention deficit hyperactivity disorder (ADHD), combined type [facility]* Diagnosis Attention deficit hyperactivity disorder (ADHD), combined type- Primary Neck pain Cervicalgia ESTEBAN on CPAP Obstructive sleep apnea (adult) (pediatric) Class 3 severe obesity due to excess calories with body mass index (BMI) of 40.0 to 44.9 in adult, unspecified whether serious comorbidity present (HCC) Moderate episode of recurrent major depressive disorder (HCC) Encounter for immunization Need for other specified prophylactic vaccination against single bacterial disease documented in this encounter [facility] for referral (narrative)* Diagnostic Procedure Only (Urgent) - Closed Specialty Diagnoses / Procedures Referred By Contac t Referred To Contact XR IMAGING Diagnoses Foot pain, right Procedures XR FOOT GENERAL 3V AP/LAT/OBL RIGHT RADEX FOOT COMPLETE MINIMUM 3 VIEWS Kera Joseph APRN.HEAD OF ENGLISH [address] [place] [address] Xr Imaging Referral ID Status Reason Start Date Expiration Date V isits Requested Visits Authorized [id number] Closed Auto-Generate d Referral 02/20/2022 03/22/2023 1 1 * Diagnostic Procedure Only (Urgent) - Closed Specialty Diagnoses / Procedures Referred By Contac t Referred To Contact XR IMAGING Diagnoses Acute right ankle pain Procedures XR ANKLE GENERAL 3V AP/LAT/OBL RIGHT RADEX ANKLE COMPLETE MINIMUM 3 VIEWS Kera Joseph APRN.CNP [address] [place] [address] Xr Imaging Referral ID Status Reason Start Date Expiration Date V isits Requested Visits Authorized [id number] Closed Auto-Generate d Referral 02/20/2022 03/22/2023 1 1 [facility] for referral (narrative)* Diagnostic Procedure Only (Routine) - Pending Review Specialty Diagnoses / Procedures Referred By Tree t Referred To Contact MOLECULAR & FUNCTIONAL IMAGING Diagnoses Nausea Procedures NM HEPATOBILIARY W EF AND/OR RX HEPATOBIL SYST IMAG INC GB W/PHARMA INTERVENJ Annia Hogan APRN.HEAD OF ENGLISH [address] [place] [address] Molecular & Functional Imaging [address] [id number] Referral ID Status Reason Start Date Expiration Date Visits Requested Visits Authorized [id number] Pending Review Auto-Generat ed Referral 05/07/2022 06/06/2023 1 1 * Outpatient Procedure (Routine) - Pending Review Specialty Diagnoses / Procedures Referred By Tree t Referred To Contact [facility] Diagnoses Abnormal laboratory test Fatty liver Procedures DDI VIBRATION CONTROLLED TRANSIENT ELASTOGRAPHY (VCTE) LIVER ELASTOGRAPHY W/O IMAG W/I&R Annia Hogan APRN.HEAD OF ENGLISH [address] [facility] [place] [address] [facility] [place] [address] [place] [address] Referral ID Status Reason Start Date Expiration Date Visits Requested Visits Authorized [id number] Pending Review Auto-Generat ed Referral 05/07/2022 05/07/2023 1 1 [facility] for referral (narrative)* Outpatient Procedure (Routine) - Authorized Specialty Diagnoses / Procedures Referred By Tree t Referred To Contact [facility] Diagnoses SOBOE (shortness of breath on exertion) Procedures SPIROMETRY WITH DILATOR IF OBSTRUCTED BRNCDILAT RSPSE SPMTRY PRE&POST-BRNCDILAT ADMN 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 APRN.RUBBER STAMP DIES INSPECTOR [address] [place] [address] [facility] [place] [address] [place] [address] Referral ID Status Reason Start Date Expiration Date Visits Requested Visits Authorized [id number] Authorized Auto-Generat ed Referral 10/28/2022 11/27/2023 1 1 [facility] for referral (narrative)* Diagnostic Procedure Only (Routine) - Authorized Specialty Diagnoses / Procedures Referred By Contac t Referred To Contact US IMAGING Diagnoses Secondary amenorrhea Procedures US FEMALE PELVIS TRANSVAG US TRANSVAGINAL Kelly Nunez APRN.CNM [address] [place] [address] [place] [address] Referral ID Status Reason Start Date Expiration Date Visits Requested Visits Authorized [id number] Authorized Auto-Generat ed Referral 3 05/08/2024 1 1 [facility] for referral (narrative)* Diagnostic Procedure Only (Routine) - Authorized Specialty Diagnoses / Procedures Referred By Contac t Referred To Contact US IMAGING Diagnoses Fatty liver Elevated LFTs Procedures US ABD RIGHT UPPER QUADRANT US ABDOMINAL REAL TIME W/IMAGE LIMITED Zuleika Cross PA-C [address] [place] [address] [place] [address] Referral ID Status Reason Start Date Expiration Date Visits Requested Visits Authorized [id number] Authorized Auto-Generat ed Referral 3 05/21/2024 1 1 [facility] for referral (narrative)* Diagnostic Procedure Only (Routine) - Closed Specialty Diagnoses / Procedures Referred By Contac t Referred To Contact US IMAGING Diagnoses Fatty liver Elevated LFTs Procedures US ABD RIGHT UPPER QUADRANT US ABDOMINAL REAL TIME W/IMAGE LIMITED Zuleika Cross PA-C [address] [place] [address] [place] [address] Referral ID Status Reason Start Date Expiration Date V isits Requested Visits Authorized [id number] Closed Auto-Generate d Referral 04/22/2023 05/21/2024 1 1 [facility] for referral (narrative)* Diagnostic Procedure Only (Routine) - Closed Specialty Diagnoses / Procedures Referred By Contac t Referred To Contact US IMAGING Diagnoses Secondary amenorrhea Procedures US FEMALE PELVIS TRANSVAG US TRANSVAGINAL Kelly Nunez APRN.CNM [address] [place] [address] [place] [address] Referral ID Status Reason Start Date Expiration Date V isits Requested Visits Authorized [id number] Closed Auto-Generate d Referral 04/09/2023 05/08/2024 1 1 [facility] for referral (narrative)* Diagnostic Procedure Only (Routine) - Closed Specialty Diagnoses / Procedures Referred By Contac t Referred To Contact US IMAGING Diagnoses Abnormal laboratory test Malaise and fatigue Diarrhea, unspecified type Abdominal pain, unspecified abdominal location Procedures US ABD RT UPPER QUADRANT US ABDOMINAL REAL TIME W/IMAGE LIMITED Antonio Smalls MD [address] [place] [address] [place] [address] Referral ID Status Reason Start Date Expiration Date V isits Requested Visits Authorized [id number] Closed Auto-Generate d Referral 04/18/2022 05/18/2023 1 1 [facility] Summary Purpose Family History No Family History Records FoundNo Family History Records FoundNo Family History Records FoundNo Family History Records FoundNo Family History Records FoundNo Family History Records Found Advance Directives No Advanced Directives Records FoundNo Advanced Directives Records FoundNo Advanced Directives Records FoundNo Advanced Directives Records FoundNo Advanced Directives Records FoundNo Advanced Directives Records Found Reason for Referral Specialty Diagnoses / Procedures Referred By Contac t Referred To Contact Diagnoses Attention deficit hyperactivity disorder (ADHD), combined type Playl, Antonio M, MD [address] [place] [address] Referral ID Status Reason Start Date Expiration Date Visits Re quested Visits Authorized [id number] Closed 1 1 Specialty Diagnoses / Procedures Referred By Contac t Referred To Contact Diagnoses Attention deficit hyperactivity disorder (ADHD), combined type Kishor Abdul MD [address] [place] [address] Referral ID Status Reason Start Date Expiration Date Visits Re quested Visits Authorized [id number] Closed 1 1 Specialty Diagnoses / Procedures Referred By Contac t Referred To Contact Diagnoses Attention deficit hyperactivity disorder ([place]), [place] [address] [place] [address] Referral ID Status Reason Start Date Expiration Date Visits Re quested Visits Authorized [id number] Closed 1 1 Specialty Diagnoses / Procedures Referred By Contac t Referred To Contact Diagnoses Attention deficit hyperactivity disorder (ADHD), combined type Estrellita Underwood PA-C [address] [place] [address] Referral ID Status Reason Start Date Expiration Date Visits Re quested Visits Authorized [id number] Closed 1 1 Specialty Diagnoses / Procedures Referred By Contac t Referred To Contact Podiatry Diagnoses Pain in right foot Procedures CONSULT TO PODIATRY OFFICE/OUTPATIENT [facility] 60-[place] [address] [place], [place] [id number] Referral ID Status Reason Start Date Expiration Date Visits Requested Visits Authorized [id number] Authorized PCP Requested Referral 03/12/2022 03/12/2023 1 1 Specialty Diagnoses / Procedures Referred By Contac t Referred To Contact Gastroenterology Diagnoses Abnormal laboratory test Malaise and fatigue Diarrhea, unspecified type Abdominal pain, unspecified abdominal location Procedures CONSULT TO GASTROENTEROLOGY OFFICE/OUTPATIENT [facility] 60-74 MINUTES Antonio Smalls MD [address] [phone] Referral ID Status Reason Start Date Expiration Date Visits Requested Visits Authorized [id number] Authorized PCP Requested Referral 2 04/18/2023 1 1 Specialty Diagnoses / Procedures Referred By Contac t Referred To Contact US IMAGING Diagnoses Abnormal laboratory test Malaise and fatigue Diarrhea, unspecified type Abdominal pain, unspecified abdominal location Procedures US ABD RT UPPER QUADRANT US ABDOMINAL REAL TIME W/IMAGE LIMITED Antonio Smalls MD [address] [place] [address] Us Imaging Referral ID Status Reason Start Date Expiration Date Visits Requested Visits Authorized [id number] Pending Review Auto-Generat ed Referral 2 05/18/2023 1 1 Specialty Diagnoses / Procedures Referred By Contac t Referred To Contact CT IMAGING Diagnoses Precordial pain Procedures CTA CORONARY W IVCON CTA HRT CORNRY ART/BYPASS GRFTS CONTRST 3D POST Santi Mcallister MD [address] [place] [address] Ct Imaging Referral ID Status Reason Start Date Expiration Date Visits Requested Visits Authorized [id number] Pending Review Auto-Generat ed Referral 10/30/2022 10/30/2023 1 1 Specialty Diagnoses / Procedures Referred By Contac t Referred To Contact [facility] Diagnoses Precordial pain Procedures ECHO ECHO TTHRC R-T 2D W/WOM-MODE COMPL SPEC&COLR D Santi Mcallister MD [address] [place] [address] [facility] [place] [address] [place] [address] Referral ID Status Reason Start Date Expiration Date Visits Requested Visits Authorized [id number] Additional Clinical Info Needed Auto-Generat ed Referral 10/07/2022 09/30/2023 1 1 Specialty Diagnoses / Procedures Referred By Contac t Referred To Contact INTERNAL MEDICINE Diagnoses Attention deficit hyperactivity disorder (ADHD), combined type Procedures ESTABLISH WITH PRIMARY CARE NEW PATIENT OFFICE/OUTPATIENT NEW HIGH MDM 60-74 MINUTES Antonio Smalls MD [address] [place] [address] [facility] [address] [place] [address] Referral ID Status Reason Start Date Expiration Date V isits Requested Visits Authorized [id number] Closed PCP Requested Referral 10/09/2022 10/09/2023 1 1 Specialty Diagnoses / Procedures Referred By Tree t Referred To Contact Diagnoses Attention deficit hyperactivity disorder (ADHD), combined type Kate Silva MD [address] [place] [address] Referral ID Status Reason Start Date Expiration Date Visits Re quested Visits Authorized [id number] Closed 1 1 Referral ID Status Reason Start Date Expiration Date Visits Re quested Visits Authorized [id number] Closed 1 1 Referral ID Status Reason Start Date Expiration Date Visits Re quested Visits Authorized [id number] Closed 1 1 Referral ID Status Reason Start Date Expiration Date Visits Re quested Visits Authorized [id number] Closed 1 1 Referral ID Status Reason Start Date Expiration Date Visits Re quested Visits Authorized [id number] Closed 1 1 Referral ID Status Reason Start Date Expiration Date Visits Re quested Visits Authorized [id number] Closed 1 1 Referral ID Status Reason Start Date Expiration Date Visits Re quested Visits Authorized [id number] Closed 1 1 Referral ID Status Reason Start Date Expiration Date Visits Re quested Visits Authorized [id number] Closed 1 1 Medications Administered Section Inactive Administered Medications - up to 3 most recent administrations Medication Order MAR Action Action Date Dose Rate Site fentaNYL 50 mcg/mL injection (SUBLIMAZE) INTRAVENOUS, X (OR/PROCEDURE) PRN, Starting on Fri07/05/22 at 1033, Until 07/06/22 at 0303, Intraprocedure Given 07/05/2022 10:33 AM EST 25 mcg IV fentaNYL 50 mcg/mL injection (SUBLIMAZE) INTRAVENOUS, X (OR/PROCEDURE) PRN, Starting on Fri07/05/22 at 1045, Until 07/06/22 at 0303, Intraprocedure Given 07/05/2022 10:45 AM EST 25 mcg IV fentaNYL 50 mcg/mL injection (SUBLIMAZE) INTRAVENOUS, X (OR/PROCEDURE) PRN, Starting on Fri07/05/22 at 1109, Until 07/06/22 at 0303, Intraprocedure Given 07/05/2022 11:09 AM EST 50 mcg IV gelatin adsorbable topical sponge (GELFOAM) TOPICAL, X (OR/PROCEDURE) PRN, Starting on Fri07/05/22 at 1102, Until 07/06/22 at 0303, Intraprocedure Given 07/05/2022 11:02 AM EST 1 Each Other lidocaine 10 mg/mL (1 %) injection (XYLOCAINE) OTHER, X (OR/PROCEDURE) PRN, Starting on Fri07/05/22 at 1034, Until 07/06/22 at 0303, Intraprocedure Given 07/05/2022 10:34 AM EST 100 mg Abdominal Tissue lidocaine 10 mg/mL (1 %) injection (XYLOCAINE) OTHER, X (OR/PROCEDURE) PRN, Starting on Fri07/05/22 at 1047, Until 07/06/22 at 0303, Intraprocedure Given 07/05/2022 10:47 AM EST 100 mg Abdominal Tissue midazolam (PF) injection (VERSED) INTRAVENOUS, X (OR/PROCEDURE) PRN, Starting on Fri07/05/22 at 1037, Until 07/06/22 at 0303, Intraprocedure Given 07/05/2022 10:37 AM EST 0.5 mg IV NaCl 0.9% iv infusion INTRAVENOUS, X (OR/PROCEDURE) CONTINUOUS, Starting on Fri07/05/22 at 1023, Until 07/06/22 at 0303, Intraprocedure New Bag/Syringe/Bot tle 07/05/2022 10:23 AM EST 500 mL 30 mL/hr IV sodium chloride 0.9 % (flush) (BD POSIFLUSH) INTRAVENOUS, X (OR/PROCEDURE) PRN, Starting on Fri07/05/22 at 1023, Until 07/06/22 at 0303, Intraprocedure Given 07/05/2022 10:23 AM EST 10 mL IV Health Concerns Infection Onset Date Last Indicated Resolved Time COVID-19 Rule-Out 07/09/2022 07/09/2022 07/09/2022 10:44 PM EST Infection Onset Date Last Indicated Resolved Time COVID-19 Rule-Out 11/04/2022 11/04/2022 Additional Source Comments INFORMATION SOURCE (unrecogn ized section and content) DATE CREATED AUTHOR AUTHOR'S ORGANIZ ATION 11/23/2018 [facility] kae Wilkinson DATE CREATED AUTHOR AUTHOR'S ORGANIZ ATION 08/15/2021 [facility] DATE CREATED AUTHOR AUTHOR'S ORGANIZ ATION 07/09/2022 [facility] DATE CREATED AUTHOR AUTHOR'S ORGANIZ ATION 12/29/2022 [facility] DATE CREATED AUTHOR AUTHOR'S ORGANIZ ATION 07/22/2023 [facility] Source Comments (unrecognize d section and content) In the event this informatio n is protected by the Federal Confidentiality of Alcohol and Drug Abuse Patient Records regulations: The Federal rules restrict any use of the information to criminally investigate or prosecute any alcohol or drug abuse patient.[facility] the event this information is protected by the Federal Confidentiality of Alcohol and Drug Abuse Patient Records regulations: The Federal rules restrict any use of the information to criminally investigate or prosecute any alcohol or drug abuse patient.[facility] the event this information is protected by the Federal Confidentiality of Alcohol and Drug Abuse Patient Records regulations: The Federal rules restrict any use of the information to criminally investigate or prosecute any alcohol or drug abuse patient.[facility] the event this information is protected by the Federal Confidentiality of Alcohol and Drug Abuse Patient Records regulations: The Federal rules restrict any use of the information to criminally investigate or prosecute any alcohol or drug abuse patient.[facility] the event this information is protected by the Federal Confidentiality of Alcohol and Drug Abuse Patient Records regulations: The Federal rules restrict any use of the information to criminally investigate or prosecute any alcohol or drug abuse patient.[facility] the event this information is protected by the Federal Confidentiality of Alcohol and Drug Abuse Patient Records regulations: The Federal rules restrict any use of the information to criminally investigate or prosecute any alcohol or drug abuse patient.[facility] the event this information is protected by the Federal Confidentiality of Alcohol and Drug Abuse Patient Records regulations: The Federal rules restrict any use of the information to criminally investigate or prosecute any alcohol or drug abuse patient.[facility] the event this information is protected by the Federal Confidentiality of Alcohol and Drug Abuse Patient Records regulations: The Federal rules restrict any use of the information to criminally investigate or prosecute any alcohol or drug abuse patient.[facility] the event this information is protected by the Federal Confidentiality of Alcohol and Drug Abuse Patient Records regulations: The Federal rules restrict any use of the information to criminally investigate or prosecute any alcohol or drug abuse patient.[facility] the event this information is protected by the Federal Confidentiality of Alcohol and Drug Abuse Patient Records regulations: The Federal rules restrict any use of the information to criminally investigate or prosecute any alcohol or drug abuse patient.[facility] the event this information is protected by the Federal Confidentiality of Alcohol and Drug Abuse Patient Records regulations: The Federal rules restrict any use of the information to criminally investigate or prosecute any alcohol or drug abuse patient.[facility] Hospital[facility] the event this information is protected by the Federal Confidentiality of Alcohol and Drug Abuse Patient Records regulations: The Federal rules restrict any use of the information to criminally investigate or prosecute any alcohol or drug abuse patient.[facility] Hospital[facility] the event this information is protected by the Federal Confidentiality of Alcohol and Drug Abuse Patient Records regulations: The Federal rules restrict any use of the information to criminally investigate or prosecute any alcohol or drug abuse patient.[facility] Hospital[facility] the event this information is protected by the Federal Confidentiality of Alcohol and Drug Abuse Patient Records regulations: The Federal rules restrict any use of the information to criminally investigate or prosecute any alcohol or drug abuse patient.[facility] HospitalIn the event this information is protected by the Federal Confidentiality of Alcohol and Drug Abuse Patient Records regulations: The Federal rules restrict any use of the information to criminally investigate or prosecute any alcohol or drug abuse patient.[facility] HospitalIn the event this information is protected by the Federal Confidentiality of Alcohol and Drug Abuse Patient Records regulations: The Federal rules restrict any use of the information to criminally investigate or prosecute any alcohol or drug abuse patient.[facility] HospitalIn the event this information is protected by the Federal Confidentiality of Alcohol and Drug Abuse Patient Records regulations: The Federal rules restrict any use of the information to criminally investigate or prosecute any alcohol or drug abuse patient.[facility] HospitalIn the event this information is protected by the Federal Confidentiality of Alcohol and Drug Abuse Patient Records regulations: The Federal rules restrict any use of the information to criminally investigate or prosecute any alcohol or drug abuse patient.[facility] HospitalIn the event this information is protected by the Federal Confidentiality of Alcohol and Drug Abuse Patient Records regulations: The Federal rules restrict any use of the information to criminally investigate or prosecute any alcohol or drug abuse patient.[facility] HospitalIn the event this information is protected by the Federal Confidentiality of Alcohol and Drug Abuse Patient Records regulations: The Federal rules restrict any use of the information to criminally investigate or prosecute any alcohol or drug abuse patient.[facility] HospitalIn the event this information is protected by the Federal Confidentiality of Alcohol and Drug Abuse Patient Records regulations: The Federal rules restrict any use of the information to criminally investigate or prosecute any alcohol or drug abuse patient.[facility] HospitalIn the event this information is protected by the Federal Confidentiality of Alcohol and Drug Abuse Patient Records regulations: The Federal rules restrict any use of the information to criminally investigate or prosecute any alcohol or drug abuse patient.[facility] HospitalIn the event this information is protected by the Federal Confidentiality of Alcohol and Drug Abuse Patient Records regulations: The Federal rules restrict any use of the information to criminally investigate or prosecute any alcohol or drug abuse patient.[facility] HospitalIn the event this information is protected by the Federal Confidentiality of Alcohol and Drug Abuse Patient Records regulations: The Federal rules restrict any use of the information to criminally investigate or prosecute any alcohol or drug abuse patient.[facility] HospitalIn the event this information is protected by the Federal Confidentiality of Alcohol and Drug Abuse Patient Records regulations: The Federal rules restrict any use of the information to criminally investigate or prosecute any alcohol or drug abuse patient.[facility] HospitalIn the event this information is protected by the Federal Confidentiality of Alcohol and Drug Abuse Patient Records regulations: The Federal rules restrict any use of the information to criminally investigate or prosecute any alcohol or drug abuse patient.[facility] HospitalIn the event this information is protected by the Federal Confidentiality of Alcohol and Drug Abuse Patient Records regulations: The Federal rules restrict any use of the information to criminally investigate or prosecute any alcohol or drug abuse patient.[facility] HospitalIn the event this information is protected by the Federal Confidentiality of Alcohol and Drug Abuse Patient Records regulations: The Federal rules restrict any use of the information to criminally investigate or prosecute any alcohol or drug abuse patient.[facility] HospitalIn the event this information is protected by the Federal Confidentiality of Alcohol and Drug Abuse Patient Records regulations: The Federal rules restrict any use of the information to criminally investigate or prosecute any alcohol or drug abuse patient.[facility] HospitalIn the event this information is protected by the Federal Confidentiality of Alcohol and Drug Abuse Patient Records regulations: The Federal rules restrict any use of the information to criminally investigate or prosecute any alcohol or drug abuse patient.[facility] HospitalIn the event this information is protected by the Federal Confidentiality of Alcohol and Drug Abuse Patient Records regulations: The Federal rules restrict any use of the information to criminally investigate or prosecute any alcohol or drug abuse patient.[facility] HospitalIn the event this information is protected by the Federal Confidentiality of Alcohol and Drug Abuse Patient Records regulations: The Federal rules restrict any use of the information to criminally investigate or prosecute any alcohol or drug abuse patient.[facility] HospitalIn the event this information is protected by the Federal Confidentiality of Alcohol and Drug Abuse Patient Records regulations: The Federal rules restrict any use of the information to criminally investigate or prosecute any alcohol or drug abuse patient.[facility] HospitalIn the event this information is protected by the Federal Confidentiality of Alcohol and Drug Abuse Patient Records regulations: The Federal rules restrict any use of the information to criminally investigate or prosecute any alcohol or drug abuse patient.[facility] HospitalIn the event this information is protected by the Federal Confidentiality of Alcohol and Drug Abuse Patient Records regulations: The Federal rules restrict any use of the information to criminally investigate or prosecute any alcohol or drug abuse patient.[facility] HospitalIn the event this information is protected by the Federal Confidentiality of Alcohol and Drug Abuse Patient Records regulations: The Federal rules restrict any use of the information to criminally investigate or prosecute any alcohol or drug abuse patient.[facility] HospitalIn the event this information is protected by the Federal Confidentiality of Alcohol and Drug Abuse Patient Records regulations: The Federal rules restrict any use of the information to criminally investigate or prosecute any alcohol or drug abuse patient.[facility] HospitalIn the event this information is protected by the Federal Confidentiality of Alcohol and Drug Abuse Patient Records regulations: The Federal rules restrict any use of the information to criminally investigate or prosecute any alcohol or drug abuse patient.[facility] HospitalIn the event this information is protected by the Federal Confidentiality of Alcohol and Drug Abuse Patient Records regulations: The Federal rules restrict any use of the information to criminally investigate or prosecute any alcohol or drug abuse patient.[facility] HospitalIn the event this information is protected by the Federal Confidentiality of Alcohol and Drug Abuse Patient Records regulations: The Federal rules restrict any use of the information to criminally investigate or prosecute any alcohol or drug abuse patient.[facility] HospitalIn the event this information is protected by the Federal Confidentiality of Alcohol and Drug Abuse Patient Records regulations: The Federal rules restrict any use of the information to criminally investigate or prosecute any alcohol or drug abuse patient.[facility] HospitalIn the event this information is protected by the Federal Confidentiality of Alcohol and Drug Abuse Patient Records regulations: The Federal rules restrict any use of the information to criminally investigate or prosecute any alcohol or drug abuse patient.[facility] HospitalIn the event this information is protected by the Federal Confidentiality of Alcohol and Drug Abuse Patient Records regulations: The Federal rules restrict any use of the information to criminally investigate or prosecute any alcohol or drug abuse patient.[facility] HospitalIn the event this information is protected by the Federal Confidentiality of Alcohol and Drug Abuse Patient Records regulations: The Federal rules restrict any use of the information to criminally investigate or prosecute any alcohol or drug abuse patient.[facility] HospitalIn the event this information is protected by the Federal Confidentiality of Alcohol and Drug Abuse Patient Records regulations: The Federal rules restrict any use of the information to criminally investigate or prosecute any alcohol or drug abuse patient.[facility] HospitalIn the event this information is protected by the Federal Confidentiality of Alcohol and Drug Abuse Patient Records regulations: The Federal rules restrict any use of the information to criminally investigate or prosecute any alcohol or drug abuse patient.[facility] HospitalIn the event this information is protected by the Federal Confidentiality of Alcohol and Drug Abuse Patient Records regulations: The Federal rules restrict any use of the information to criminally investigate or prosecute any alcohol or drug abuse patient.[facility] HospitalIn the event this information is protected by the Federal Confidentiality of Alcohol and Drug Abuse Patient Records regulations: The Federal rules restrict any use of the information to criminally investigate or prosecute any alcohol or drug abuse patient.[facility] HospitalIn the event this information is protected by the Federal Confidentiality of Alcohol and Drug Abuse Patient Records regulations: The Federal rules restrict any use of the information to criminally investigate or prosecute any alcohol or drug abuse patient.[facility] HospitalIn the event this information is protected by the Federal Confidentiality of Alcohol and Drug Abuse Patient Records regulations: The Federal rules restrict any use of the information to criminally investigate or prosecute any alcohol or drug abuse patient.[facility] HospitalIn the event this information is protected by the Federal Confidentiality of Alcohol and Drug Abuse Patient Records regulations: The Federal rules restrict any use of the information to criminally investigate or prosecute any alcohol or drug abuse patient.[facility] HospitalIn the event this information is protected by the Federal Confidentiality of Alcohol and Drug Abuse Patient Records regulations: The Federal rules restrict any use of the information to criminally investigate or prosecute any alcohol or drug abuse patient.[facility] HospitalIn the event this information is protected by the Federal Confidentiality of Alcohol and Drug Abuse Patient Records regulations: The Federal rules restrict any use of the information to criminally investigate or prosecute any alcohol or drug abuse patient.[facility] HospitalIn the event this information is protected by the Federal Confidentiality of Alcohol and Drug Abuse Patient Records regulations: The Federal rules restrict any use of the information to criminally investigate or prosecute any alcohol or drug abuse patient.[facility] HospitalIn the event this information is protected by the Federal Confidentiality of Alcohol and Drug Abuse Patient Records regulations: The Federal rules restrict any use of the information to criminally investigate or prosecute any alcohol or drug abuse patient.[facility] HospitalIn the event this information is protected by the Federal Confidentiality of Alcohol and Drug Abuse Patient Records regulations: The Federal rules restrict any use of the information to criminally investigate or prosecute any alcohol or drug abuse patient.[facility] HospitalIn the event this information is protected by the Federal Confidentiality of Alcohol and Drug Abuse Patient Records regulations: The Federal rules restrict any use of the information to criminally investigate or prosecute any alcohol or drug abuse patient.[facility] HospitalIn the event this information is protected by the Federal Confidentiality of Alcohol and Drug Abuse Patient Records regulations: The Federal rules restrict any use of the information to criminally investigate or prosecute any alcohol or drug abuse patient.[facility] HospitalIn the event this information is protected by the Federal Confidentiality of Alcohol and Drug Abuse Patient Records regulations: The Federal rules restrict any use of the information to criminally investigate or prosecute any alcohol or drug abuse patient.[facility] HospitalIn the event this information is protected by the Federal Confidentiality of Alcohol and Drug Abuse Patient Records regulations: The Federal rules restrict any use of the information to criminally investigate or prosecute any alcohol or drug abuse patient.[facility] HospitalIn the event this information is protected by the Federal Confidentiality of Alcohol and Drug Abuse Patient Records regulations: The Federal rules restrict any use of the information to criminally investigate or prosecute any alcohol or drug abuse patient.[facility] HospitalIn the event this information is protected by the Federal Confidentiality of Alcohol and Drug Abuse Patient Records regulations: The Federal rules restrict any use of the information to criminally investigate or prosecute any alcohol or drug abuse patient.[facility] HospitalIn the event this information is protected by the Federal Confidentiality of Alcohol and Drug Abuse Patient Records regulations: The Federal rules restrict any use of the information to criminally investigate or prosecute any alcohol or drug abuse patient.[facility] HospitalIn the event this information is protected by the Federal Confidentiality of Alcohol and Drug Abuse Patient Records regulations: The Federal rules restrict any use of the information to criminally investigate or prosecute any alcohol or drug abuse patient.[facility] HospitalIn the event this information is protected by the Federal Confidentiality of Alcohol and Drug Abuse Patient Records regulations: The Federal rules restrict any use of the information to criminally investigate or prosecute any alcohol or drug abuse patient.[facility] HospitalIn the event this information is protected by the Federal Confidentiality of Alcohol and Drug Abuse Patient Records regulations: The Federal rules restrict any use of the information to criminally investigate or prosecute any alcohol or drug abuse patient.[facility] HospitalIn the event this information is protected by the Federal Confidentiality of Alcohol and Drug Abuse Patient Records regulations: The Federal rules restrict any use of the information to criminally investigate or prosecute any alcohol or drug abuse patient.[facility] HospitalIn the event this information is protected by the Federal Confidentiality of Alcohol and Drug Abuse Patient Records regulations: The Federal rules restrict any use of the information to criminally investigate or prosecute any alcohol or drug abuse patient.[facility] HospitalIn the event this information is protected by the Federal Confidentiality of Alcohol and Drug Abuse Patient Records regulations: The Federal rules restrict any use of the information to criminally investigate or prosecute any alcohol or drug abuse patient.[facility] HospitalIn the event this information is protected by the Federal Confidentiality of Alcohol and Drug Abuse Patient Records regulations: The Federal rules restrict any use of the information to criminally investigate or prosecute any alcohol or drug abuse patient.[facility] HospitalIn the event this information is protected by the Federal Confidentiality of Alcohol and Drug Abuse Patient Records regulations: The Federal rules restrict any use of the information to criminally investigate or prosecute any alcohol or drug abuse patient.[facility] HospitalIn the event this information is protected by the Federal Confidentiality of Alcohol and Drug Abuse Patient Records regulations: The Federal rules restrict any use of the information to criminally investigate or prosecute any alcohol or drug abuse patient.[facility] HospitalIn the event this information is protected by the Federal Confidentiality of Alcohol and Drug Abuse Patient Records regulations: The Federal rules restrict any use of the information to criminally investigate or prosecute any alcohol or drug abuse patient.[facility] HospitalIn the event this information is protected by the Federal Confidentiality of Alcohol and Drug Abuse Patient Records regulations: The Federal rules restrict any use of the information to criminally investigate or prosecute any alcohol or drug abuse patient.[facility] HospitalIn the event this information is protected by the Federal Confidentiality of Alcohol and Drug Abuse Patient Records regulations: The Federal rules restrict any use of the information to criminally investigate or prosecute any alcohol or drug abuse patient.[facility] HospitalIn the event this information is protected by the Federal Confidentiality of Alcohol and Drug Abuse Patient Records regulations: The Federal rules restrict any use of the information to criminally investigate or prosecute any alcohol or drug abuse patient.[facility] HospitalIn the event this information is protected by the Federal Confidentiality of Alcohol and Drug Abuse Patient Records regulations: The Federal rules restrict any use of the information to criminally investigate or prosecute any alcohol or drug abuse patient.[facility] HospitalIn the event this information is protected by the Federal Confidentiality of Alcohol and Drug Abuse Patient Records regulations: The Federal rules restrict any use of the information to criminally investigate or prosecute any alcohol or drug abuse patient.[facility] HospitalIn the event this information is protected by the Federal Confidentiality of Alcohol and Drug Abuse Patient Records regulations: The Federal rules restrict any use of the information to criminally investigate or prosecute any alcohol or drug abuse patient.[facility] HospitalIn the event this information is protected by the Federal Confidentiality of Alcohol and Drug Abuse Patient Records regulations: The Federal rules restrict any use of the information to criminally investigate or prosecute any alcohol or drug abuse patient.[facility] HospitalIn the event this information is protected by the Federal Confidentiality of Alcohol and Drug Abuse Patient Records regulations: The Federal rules restrict any use of the information to criminally investigate or prosecute any alcohol or drug abuse patient.[facility] HospitalIn the event this information is protected by the Federal Confidentiality of Alcohol and Drug Abuse Patient Records regulations: The Federal rules restrict any use of the information to criminally investigate or prosecute any alcohol or drug abuse patient.[facility] HospitalIn the event this information is protected by the Federal Confidentiality of Alcohol and Drug Abuse Patient Records regulations: The Federal rules restrict any use of the information to criminally investigate or prosecute any alcohol or drug abuse patient.[facility] HospitalIn the event this information is protected by the Federal Confidentiality of Alcohol and Drug Abuse Patient Records regulations: The Federal rules restrict any use of the information to criminally investigate or prosecute any alcohol or drug abuse patient.[facility] HospitalIn the event this information is protected by the Federal Confidentiality of Alcohol and Drug Abuse Patient Records regulations: The Federal rules restrict any use of the information to criminally investigate or prosecute any alcohol or drug abuse patient.[facility] HospitalIn the event this information is protected by the Federal Confidentiality of Alcohol and Drug Abuse Patient Records regulations: The Federal rules restrict any use of the information to criminally investigate or prosecute any alcohol or drug abuse patient.[facility] HospitalIn the event this information is protected by the Federal Confidentiality of Alcohol and Drug Abuse Patient Records regulations: The Federal rules restrict any use of the information to criminally investigate or prosecute any alcohol or drug abuse patient.[facility] HospitalIn the event this information is protected by the Federal Confidentiality of Alcohol and Drug Abuse Patient Records regulations: The Federal rules restrict any use of the information to criminally investigate or prosecute any alcohol or drug abuse patient.[facility] HospitalIn the event this information is protected by the Federal Confidentiality of Alcohol and Drug Abuse Patient Records regulations: The Federal rules restrict any use of the information to criminally investigate or prosecute any alcohol or drug abuse patient.[facility] HospitalIn the event this information is protected by the Federal Confidentiality of Alcohol and Drug Abuse Patient Records regulations: The Federal rules restrict any use of the information to criminally investigate or prosecute any alcohol or drug abuse patient.[facility] HospitalIn the event this information is protected by the Federal Confidentiality of Alcohol and Drug Abuse Patient Records regulations: The Federal rules restrict any use of the information to criminally investigate or prosecute any alcohol or drug abuse patient.[facility] HospitalIn the event this information is protected by the Federal Confidentiality of Alcohol and Drug Abuse Patient Records regulations: The Federal rules restrict any use of the information to criminally investigate or prosecute any alcohol or drug abuse patient.[facility] HospitalIn the event this information is protected by the Federal Confidentiality of Alcohol and Drug Abuse Patient Records regulations: The Federal rules restrict any use of the information to criminally investigate or prosecute any alcohol or drug abuse patient.[facility] HospitalIn the event this information is protected by the Federal Confidentiality of Alcohol and Drug Abuse Patient Records regulations: The Federal rules restrict any use of the information to criminally investigate or prosecute any alcohol or drug abuse patient.[facility] HospitalIn the event this information is protected by the Federal Confidentiality of Alcohol and Drug Abuse Patient Records regulations: The Federal rules restrict any use of the information to criminally investigate or prosecute any alcohol or drug abuse patient.[facility] HospitalIn the event this information is protected by the Federal Confidentiality of Alcohol and Drug Abuse Patient Records regulations: The Federal rules restrict any use of the information to criminally investigate or prosecute any alcohol or drug abuse patient.[facility] HospitalIn the event this information is protected by the Federal Confidentiality of Alcohol and Drug Abuse Patient Records regulations: The Federal rules restrict any use of the information to criminally investigate or prosecute any alcohol or drug abuse patient.[facility] Reason for Visit (unrecogniz ed section and content) Reason Comments Results Reason Onset Date Comments Refill Request 11/06/2021 Reason Onset Date Comments Refill Request 12/07/2021 Reason Onset Date Comments Refill Request 01/04/2022 Reason Onset Date Comments Refill Request 01/30/2022 Reason Comments Trauma Right ankle sprain a t end of December, still bothering patient Reason Comments UTI Possible uti,pt feel s the need to urinate and then can't x 2 weeks Reason Comments Med Check Med check - pt repor ts doing well, mom states same as before . No adverse effects per pt Reason Comments Referral Request Reason Comments Irregular Menstrual Cycle Reason Comments Results (not normal) Reason Comments Discussion Discuss lab results Reason Comments Ultrasound results Reason Comments Heartburn Fatigue, her body fe els tingly at times. US 04/29/22 Labs 04/04/22 ER/labs 04/11/22 Specialty Diagnoses / Procedures Referred By Tree mosquera Referred To Contact Gastroenterology Diagnoses Abnormal laboratory test Malaise and fatigue Diarrhea, unspecified type Abdominal pain, unspecified abdominal location Procedures CONSULT TO GASTROENTEROLOGY OFFICE/OUTPATIENT [facility] 60-74 MINUTES Antonio Smalls MD [address] [place] [address] Referral ID Status Reason Start Date Expiration Date V isits Requested Visits Authorized [id number] Closed PCP Requested Referral 04/18/2022 04/18/2023 1 1 Reason Comments Patient Question Reason Onset Date Comments Refill Request 05/30/2022 Reason Comments Follow Up Heaving bleeding for 10 days after provera Reason Comments Refill Request Reason Onset Date Comments Refill Request 06/07/2022 Reason Comments Illness Bilateral ear pain, wheezing and SOB - worsening with exacerbation, nasal congestion, runny nose x 3 wks; wet cough x 1 mos. Nausea. Discuss fatty liver Reason Onset Date Comments Refill Request 06/11/2022 Reason Onset Date Comments Refill Request 06/30/2022 Reason Onset Date Comments Refill Request 07/03/2022 Specialty Diagnoses / Procedures Referred By Tree mosquera Referred To Contact Diagnoses Fatty liver Procedures BIOPSY LIVER NEEDLE PERCUTANEOUS PERCUTANEOUS NEEDLE BIOPSY OF LIVER [place] [facility] [address] [place] [address] Referral ID Status Reason Start Date Expiration Date Visits Re quested Visits Authorized [id number] 1 1 Reason Onset Date Comments Refill Request 07/07/2022 Reason Onset Date Comments Refill Request 07/09/2022 Reason Comments Cough Pt reported nasal co ngestion, x2 wks, requested Covid/Influenza testing. Reason Comments Results BV, Yeimy Reason Onset Date Comments Refill Request 08/05/2022 Reason Comments Procedure Follow Up Complains of being t ired more often. She has a burning sensation near her esophagus. Biopsy 07/05/22 Reason Onset Date Comments Refill Request 08/14/2022 Reason Comments New Patient Evaluation Specialty Diagnoses / Procedures Referred By Tree mosquera Referred To Contact Diagnoses Leukocytosis, unspecified type Thrombocytosis Procedures CONSULT TO HEMATOLOGY/ONCOLOGY OFFICE/OUTPATIENT [facility] 60-74 MINUTES Zuleika Perez PA-C [address] [place] [address] Referral ID Status Reason Start Date Expiration Date V isits Requested Visits Authorized [id number] Closed PCP Requested Referral 08/08/2022 08/08/2023 1 1 Reason Comments Throat Problem Pt reported throat p ain, x1 wk. Reason Comments Sleep Problem Sleepy all day -- x months Specialty Diagnoses / Procedures Referred By Tree mosquera Referred To Contact Diagnoses Malaise and fatigue Snoring Procedures CONSULT TO SLEEP MEDICINE - ADULT OFFICE/OUTPATIENT [facility] 60-74 MINUTES Antonio Smalls MD [address] [place] [address] Referral ID Status Reason Start Date Expiration Date V isits Requested Visits Authorized [id number] Closed PCP Requested Referral 08/27/2022 08/27/2023 1 1 Reason Onset Date Comments Refill Request 09/09/2022 Reason Comments New Patient Chest Pain Marfans Reason Onset Date Comments Refill Request 10/09/2022 Reason Comments Returning Patient's Call Reason Onset Date Comments Refill Request 10/09/2022 Reason Comments Establish Care Specialty Diagnoses / Procedures Referred By Tree mosquera Referred To Contact INTERNAL MEDICINE Diagnoses Attention deficit hyperactivity disorder (ADHD), combined type Procedures ESTABLISH WITH PRIMARY CARE NEW PATIENT OFFICE/OUTPATIENT [facility] 60-74 MINUTES Antonio Smalls MD [address] [place] [address] [facility] [address] [place] [address] Referral ID Status Reason Start Date Expiration Date V isits Requested Visits Authorized [id number] Closed PCP Requested Referral 10/09/2022 10/09/2023 1 1 Reason Comments Cough Congestion, sneezing x 1.5 weeks Reason Comments Spirometry Specialty Diagnoses / Procedures Referred By Tree mosquera Referred To Contact [facility] Diagnoses SOBOE (shortness of breath on exertion) Procedures SPIROMETRY WITH DILATOR IF OBSTRUCTED BRNCDILAT RSPSE SPMTRY PRE&POST-BRNCDILAT ADMN 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, TRANSACTIONAL ATTORNEY.RUBBER STAMP DIES INSPECTOR [address] [place] [address] [facility] [place] [address] [place] [address] Referral ID Status Reason Start Date Expiration Date V isits Requested Visits Authorized [id number] Closed Auto-Generate d Referral 10/28/2022 11/27/2023 1 1 Reason Comments Sleep Apnea Reason Onset Date Comments Refill Request 11/09/2022 Reason Onset Date Comments Refill Request 12/05/2022 Reason Comments Sore Throat Reason Onset Date Comments Refill Request 01/08/2023 Reason Comments Vaginal Problem Possible yeast infec tion, currently on amoxil for ear infection Reason Comments Orders Pap Rx. Reason Comments Established Patient Reason Comments F/U 3 Month Reason Comments CMN Reason Comments PAP Therapy Follow Up DOWNLOAD Reason Onset Date Comments Refill Request 03/11/2023 Reason Comments Cough Sinus congestion, bi lat ear pain, x 1 week Reason Comments Menstrual Problem Reason Onset Date Comments Refill Request 04/15/2023 Reason Comments Recheck Fatty Liver Reason Comments Radiology US Specialty Diagnoses / Procedures Referred By Contac t Referred To Contact US IMAGING Diagnoses Fatty liver Elevated LFTs Procedures US ABD RIGHT UPPER QUADRANT US ABDOMINAL REAL TIME W/IMAGE LIMITED Zuleika Cross PA-C [address] [facility] [place] [address] Us Imaging [facility] Referral ID Status Reason Start Date Expiration Date V isits Requested Visits Authorized [id number] Closed Auto-Generate d Referral 04/22/2023 05/21/2024 1 1 Specialty Diagnoses / Procedures Referred By Contac t Referred To Contact US IMAGING Diagnoses Secondary amenorrhea Procedures US FEMALE PELVIS TRANSVAG US TRANSVAGINAL Kelly Nunez APRN.[facility] [address] [place] [address] Us Imaging [facility] Referral ID Status Reason Start Date Expiration Date V isits Requested Visits Authorized [id number] Closed Auto-Generate d Referral 04/09/2023 05/08/2024 1 1 Specialty Diagnoses / Procedures Referred By Contac t Referred To Contact US IMAGING Diagnoses Abnormal laboratory test Malaise and fatigue Diarrhea, unspecified type Abdominal pain, unspecified abdominal location Procedures US ABD RT UPPER QUADRANT US ABDOMINAL REAL TIME W/IMAGE LIMITED Antonio Smalls MD [address] [place] [address] Us Imaging [facility] Referral ID Status Reason Start Date Expiration Date V isits Requested Visits Authorized [id number] Closed Auto-Generate d Referral 04/18/2022 05/18/2023 1 1 Reason Comments Vaginal Problem Irritation for 1 mon th. Reason Onset Date Comments Refill Request 05/16/2023 Reason Comments F/U 3 Month New to LDT Care Teams (unrecognized sec tion and content) Development Consultant Relationship Specialty Start Date End Date Antonio Smalls MD [address] [facility] [place] [address] PCP - General 02/26/06 Development Consultant Relationship Specialty [place] [address] [place] [address], [place] [address] PCP - General 02/26/06 Development Consultant Relationship Specialty Start Date End Date Antonio Smalls MD [address] [place] [address], [place] [address] PCP - General 02/26/06 Development Consultant Relationship Specialty Start Date End Date Antonio Smalls MD [address] [place] [address], [place] [address] PCP - General 02/26/06 Development Consultant Relationship Specialty Start Date End Date Antonio Smalls MD [address] [place] [address], [place] [address] PCP - General 02/26/06 Development Consultant Relationship Specialty Start Date End Date Antonio Smalls MD [address] [place] [address], [place] [address] PCP - General 02/26/06 Development Consultant Relationship Specialty Start Date End Date Antonio Smalls MD [address] [place] [address], [place] [address] PCP - General 02/26/06 Development Consultant Relationship Specialty Start Date End Date Antonio Smalls MD [address] [place] [address], [place] [address] PCP - General 02/26/06 Development Consultant Relationship Specialty Start Date End Date Antonio Smalls MD [address] [place] [address], [place] [address] PCP - General 02/26/06 Development Consultant Relationship Specialty Start Date End Date Antonio Smalls MD [address] [facility] [place] [address] PCP - General 02/26/06 Development Consultant Relationship Specialty Start Date End Date Antonio Smalls MD [address] [facility] [place] [address] PCP - General 02/26/06 Development Consultant Relationship Specialty [place] [address] [place] [address], [place] [address] PCP - General 02/26/06 Development Consultant Relationship Specialty [place] [address] [place] [address], [place] [address] PCP - General 02/26/06 Development Consultant Relationship Specialty [place] [address] [place] [address], [place] [address] PCP - General 02/26/06 Development Consultant Relationship Specialty Start Date End Date Antonio Smalls MD [address] [facility] [place] [address] PCP - General 02/26/06 Development Consultant Relationship Specialty Start Date End Date Antonio Smalls MD [address] [facility] [place] [address] PCP - General 02/26/06 Development Consultant Relationship Specialty Start Date End Date Antonio Smalls MD [address] [facility] [place] [address] PCP - General 02/26/06 Development Consultant Relationship Specialty Start Date End Date Antonio Smalls MD [address] [facility] [place] [address] PCP - General 02/26/06 Development Consultant Relationship Specialty Start Date End Date Antonio Smalls MD [address] [facility] [place] [address] PCP - General 02/26/06 Development Consultant Relationship Specialty Start Date End Date Antonio Smalls MD [address] [facility] [place] [address] PCP - General 02/26/06 Development Consultant Relationship Specialty Start Date End Date Antonio Smalls MD [address] [place] [address] PCP - General 02/26/06 Development Consultant Relationship Specialty Start Date End Date Antonio Smalls MD [address] [place] [address] PCP - General 02/26/06 Zuleika Perez PA-C [address] [place], [place] [id number] Gastroenterology 08/22/22 Development Consultant Relationship Specialty Start Date End Date Antonio Smalls MD [address] [place] [address] PCP - General 02/26/06 Zuleika Perez PA-C [address] [place] [address] Gastroenterology 08/22/22 Development Consultant Relationship Specialty Start Date End Date Antonio Smalls MD [address] [place] [address] PCP - General 02/26/06 Zuleika Perez PA-C [address] [place] [address] Gastroenterology 08/22/22 Development Consultant Relationship Specialty Start Date End Date Antonio Smalls MD [address] [place] [address] PCP - General 02/26/06 Zuleika Perez PA-C [address] [place] [address] Gastroenterology 08/22/22 Development Consultant Relationship Specialty Start Date End Date Antonio Smalls MD [address] [place] [address] PCP - General 02/26/06 Zuleika Perez PA-C [address] [place] [address] Gastroenterology 08/22/22 Development Consultant Relationship Specialty Start Date End Date Antonio Smalls MD [address] [place] [address] PCP - General 02/26/06 Zuleika Perez PA-C [address] [place] [address] Gastroenterology 08/22/22 Development Consultant Relationship Specialty Start Date End Date Antonio Smalls MD [address] [place] [address] PCP - General 02/26/06 Zuleika Perez PA-C [address] [facility] [place] [address] Gastroenterology 08/22/22 Development Consultant Relationship Specialty Start Date End Date Antonio Smalls MD [address] [place] [address] PCP - General 02/26/06 Zuleika Perez PA-C [address] [facility] [place] [address] Gastroenterology 08/22/22 Development Consultant Relationship Specialty Start Date End Date Antonio Smalls MD [address] [place] [address] PCP - General 02/26/06 Zuleika Perez PA-C [address] [place] [address] Gastroenterology 08/22/22 Development Consultant Relationship Specialty Start Date End Date Antonio Smalls MD [address] [place] [address] PCP - General 02/26/06 Zuleika Perez PA-C [address] [place] [address] Gastroenterology 08/22/22 Development Consultant Relationship Specialty Start Date End Date Wilmer Arreguin MD [address] [place] [address] PCP - General Family Medicine 10/09/22 Zuleika Perez PA-C [address] [place] [address] Gastroenterology 08/22/22 Development Consultant Relationship Specialty Start Date End Date Wilmer Arreguin MD [address] [place] [address] PCP - General Family Medicine 10/09/22 Zuleika Perez PA-C [address] [place] [address] Gastroenterology 08/22/22 Development Consultant Relationship Specialty Start Date End Date Wilmer Arreguin MD [address] [place] [address] PCP - General Family Medicine 10/09/22 Zuleika Perez PA-C [address] [place] [address] Gastroenterology 08/22/22 Development Consultant Relationship Specialty Start Date End Date Wilmer Arreguin MD [address] [place] [address] PCP - General Family Medicine 10/09/22 Zuleika Perez PA-C [address] [place] [address] Gastroenterology 08/22/22 Development Consultant Relationship Specialty Start Date End Date Kate Silva MD [address] [place] [address] PCP - General Internal Medicine 10/28/22 Zuleika Perez PA-C [address] [place] [address] Gastroenterology 08/22/22 Development Consultant Relationship Specialty Start Date End Date Kate Silva MD [address] [place] [address] PCP - General Internal Medicine 10/28/22 Zuleika Perez PA-C [address] [place] [address] Gastroenterology 08/22/22 Development Consultant Relationship Specialty Start Date End Date Kate Silva MD [address] [place] [address] PCP - General Internal Medicine 10/28/22 Zuleika Perez PA-C [address] [place] [address] Gastroenterology 08/22/22 Development Consultant Relationship Specialty Start Date End Date Kate Silva MD [address] [facility] [place] [address] PCP - General Internal Medicine 10/28/22 Zuleika Perez PA-C [address] [place] [address] Gastroenterology 08/22/22 Development Consultant Relationship Specialty Start Date End Date Kate Silva MD [address] [place] [address] PCP - General Internal Medicine 10/28/22 Zuleika Perez PA-C [address] [place] [address] Gastroenterology 08/22/22 Development Consultant Relationship Specialty Start Date End Date Kate Silva MD [address] [place] [address] PCP - General Internal Medicine 10/28/22 Zuleika Perez PA-C [address] [place] [address] Gastroenterology 08/22/22 Development Consultant Relationship Specialty Start Date End Date Kate Silva MD [address] [place] [address] PCP - General Internal Medicine 10/28/22 Zuleika Perez PA-C [address] [place] [address] Gastroenterology 08/22/22 Development Consultant Relationship Specialty Start Date End Date Kate Silva MD [address] [place] [address] PCP - General Internal Medicine 10/28/22 Zuleika Perez PA-C [address] [place], [place] [id number] Gastroenterology 08/22/22 Development Consultant Relationship Specialty Start Date End Date Kate Silva MD [address] [place], [place] [address] PCP - General Internal Medicine 10/28/22 Zuleika Perez PA-C [address] [place], [place] [id number] Gastroenterology 08/22/22 Development Consultant Relationship Specialty Start Date End Date Kate Silva MD [address] [place], [place] 9[address]141 PCP - General Internal Medicine 10/28/22 Zuleika Perez PA-C [address] [place], [place] [id number] Gastroenterology 08/22/22 Development Consultant Relationship Specialty Start Date End Date Kate Silva MD [address] [place] [address] PCP - General Internal Medicine 10/28/22 Zuleika Perez PA-C [address] [place], [place] [id number] Gastroenterology 08/22/22 Development Consultant Relationship Specialty Start Date End Date Kate Silva MD [address] [place] [address] PCP - General Internal Medicine 10/28/22 Zuleika Perez PA-C [address] [place] [address] Gastroenterology 08/22/22 Development Consultant Relationship Specialty Start Date End Date Kate Silva MD [address] [place], [place] [address] PCP - General Internal Medicine 10/28/22 Zuleika Perez PA-C [address] [place] [address] Gastroenterology 08/22/22 Development Consultant Relationship Specialty Start Date End Date Kate Silva MD [address] [place] [address] PCP - General Internal Medicine 10/28/22 Zuleika Perez PA-C [address] [place] [address] Gastroenterology 08/22/22 Development Consultant Relationship Specialty Start Date End Date Kate Silva MD [address] [place] [address] PCP - General Internal Medicine 10/28/22 Zuleika Perez PA-C [address] [place], [place] [id number] Gastroenterology 08/22/22 Development Consultant Relationship Specialty Start Date End Date Kate Silva MD [address] [place], [place] [address]241 PCP - General Internal Medicine 10/28/22 Zuleika Perez PA-C [address] [place], [place] [address] Gastroenterology 08/22/22 Development Consultant Relationship Specialty Start Date End Date Kate Silva MD [address] [place] [address] PCP - General Internal Medicine 10/28/22 Zuleika Perez PA-C [address] [place], [place] [id number] Gastroenterology 08/22/22 Development Consultant Relationship Specialty Start Date End Date Kate Silva MD [address] [place] [address] PCP - General Internal Medicine 10/28/22 Zuleika Perez PA-C [address] [place], [place] [id number] Gastroenterology 08/22/22 Gopal Yanez MD [address] [place] [address] Hematology/Oncology 02/07/23 Development Consultant Relationship Specialty Start Date End Date Kate Silva MD [address] [place] [address] PCP - General Internal Medicine 10/28/22 Zuleika Perez PA-C [address] [facility] [place], [place] [id number] Gastroenterology 08/22/22 Gopal Yanez MD [address] [facility] [address] Hematology/Oncology 02/07/23 Development Consultant Relationship Specialty Start Date End Date Kate Silva MD [address] [facility] [place] [address] PCP - General Internal Medicine 10/28/22 Zuleika Perez PA-C [address] [place] [address] Gastroenterology 08/22/22 Gopal Yanez MD [address] [facility] [address] Hematology/Oncology 02/07/23 Development Consultant Relationship Specialty Start Date End Date Kate Silva MD [address] [facility] [place] [address] PCP - General Internal Medicine 10/28/22 Zuleika Perez PA-C [address] [place] [address] Gastroenterology 08/22/22 Gopal Yanez MD [address] [facility] [address] Hematology/Oncology 02/07/23 Development Consultant Relationship Specialty Start Date End Date Kate Silva MD [address] [facility] [address] PCP - General Internal Medicine 10/28/22 Zuleika Perez PA-C [address] [place] [address] Gastroenterology 08/22/22 Gopal Yanez MD [address] [place] [address] Hematology/Oncology 02/07/23 Development Consultant Relationship Specialty Start Date End Date Kate Silva MD [address] [place] [address] PCP - General Internal Medicine 10/28/22 Zuleika Perez PA-C [address] [place] [address] Gastroenterology 08/22/22 Gopal Yanez MD [address] [place] [address] Hematology/Oncology 02/07/23 Development Consultant Relationship Specialty Start Date End Date Kate Silva MD [address] [place] [address] PCP - General Internal Medicine 10/28/22 Zuleika Cross PA-C [address] [place] [address] Gastroenterology 08/22/22 Gopal Yanez MD [address] [place] [address] Hematology/Oncology 02/07/23 Development Consultant Relationship Specialty Start Date End Date Kate Silva MD [address] [place] [address] PCP - General Internal Medicine 10/28/22 Zuleika Cross PA-C [address] [place] [address] Gastroenterology 08/22/22 Gopal Yanez MD [address] [facility] [place] [address] Hematology/Oncology 02/07/23 Development Consultant Relationship Specialty Start Date End Date Kate Silva MD [address] [place] [address] PCP - General Internal Medicine 10/28/22 Zuleika Cross PA-C [address] [place] [address] Gastroenterology 08/22/22 Gopal Yanez MD [address] [place] [address] Hematology/Oncology 02/07/23 Development Consultant Relationship Specialty Start Date End Date Antonio Smalls MD [address] [place] [address] PCP - General 02/26/06 10/08/22 Development Consultant Relationship Specialty Start Date End Date Kate Silva MD [address] [place] [address] PCP - General Internal Medicine 10/28/22 Zuleika Cross PA-C [address] [place] [address] Gastroenterology 08/22/22 Gopal Yanez MD [address] [place] [address] Hematology/Oncology 02/07/23 Development Consultant Relationship Specialty Start Date End Date Kate Silva MD [address] [facility] [place] [address] PCP - General Internal Medicine 10/28/22 Zuleika Cross PA-C [address] [facility] [place] [address] Gastroenterology 08/22/22 Gopal Yanez MD [address] [place] [address] Hematology/Oncology 02/07/23 Development Consultant Relationship Specialty Start Date End Date Kate Silva MD [address] [facility] [place] [address] PCP - General Internal Medicine 10/28/22 Zuleika Cross PA-C [address] [facility] [place] [address] Gastroenterology 08/22/22 Gopal Yanez MD [address] [place] [address] Hematology/Oncology 02/07/23 Development Consultant Relationship Specialty Start Date End Date Kate Silva MD [address] [facility] [place] [address] PCP - General Internal Medicine 10/28/22 Zuleika Cross PA-C [address] [facility] [place] [address] Gastroenterology 08/22/22 Gopal Yanez MD [address] [place] [address] Hematology/Oncology 02/07/23 PRN Active and Recently Administ ered Medications (unrecognized section and content) FOR RECORDS PERTAINING TO PATIENTS WHO ARE OR HAVE BEEN ENROLLED IN A CHEMICAL DEPENDENCY/SUBSTANCEABUSE PROGRAM, SOME INFORMATION MAY BE OMITTED. This clinical summary was aggregated from multiple sources. Caution should be exercised in using it in the provision of clinical care. This summary normalizes information from multiple sources, and as a consequence, information in this document may materially change the coding, format and clinical context of patient data. In addition, data may be omitted in some cases. CLINICAL DECISIONS SHOULD BE BASED ON THE PRIMARY CLINICAL RECORDS. [employer] [facility]. provides no warranty or guarantee of the accuracy or completeness of information in this document.
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
[2023-07-26 02:14] VITALS: BP 136/73; PULSE 99; RESP 16; TEMP 36.1; O2SAT 95
== END 2023-07-26 02:18 | disposition home or self-care (01) ==
PROVIDERS: Emergency Provider Emergency Medicine; PCP Internal Medicine; Visit Provider Emergency Medicine
DX: R03.0 Elevated blood-pressure reading, without diagnosis of hypertension (principal); S60.221A Contusion of right hand, initial encounter; F17.200 Nicotine dependence, unspecified, uncomplicated; W22.8XXA Striking against or struck by other objects, initial encounter
CPT/HCPCS: 73130; 99282

== ENCOUNTER 2023-12-02 14:19 | Emergency (ER) | payer MEDICAID, SELFPAY ==
[2023-12-02 14:19] VITALS: BP 153/88; PULSE 116; RESP 18; TEMP 36.2; O2SAT 97; BMI 41.6
--- NOTE | 2023-12-02 15:06 | CT_ITS ---
STUDY: CT ABDOMEN AND PELVIS WITH CONTRAST REASON FOR EXAM: Female, 22 years old. RUQ pain s/p liver biopsy 2 weeks ago RADIATION DOSAGE (If Supplied By Facility): CTDIvol = ( 28.47 ) mGy, DLP = ( 1988.91 ) mGycm TECHNIQUE: Transaxial images were obtained from the dome of the diaphragm to the symphysis pubis without oral contrast. IV 100mL Isovue-300 was administered. Sagittal and coronal images were reconstructed. Individualized dose optimization techniques were used for this CT. COMPARISON: None. FINDINGS: The visualized lung bases are unremarkable. The visualized portions of the heart are within normal limits. Normal liver. Normal gallbladder and extrahepatic biliary system. Normal spleen. Normal pancreas. Normal bilateral adrenal glands. Normal right kidney. Normal left kidney. Normal visualized stomach. Normal small intestine. Normal colon. The appendix is visualized and appears normal. Tiny bilateral pericecal nodes likely benign. Normal abdominal aorta. Normal inferior vena cava. Normal retroperitoneum. Normal urinary bladder. Normal abdominal wall. Normal osseous structures. CT/Abdomen/Pelvis W IV Cont ONLY IMPRESSION: No acute abnormalities identified.. Electronically Signed: Elvin Santoro MD at 17:18 EDT ,
--- NOTE | 2023-12-02 15:06 | ED.VIS.GI ---
HPI HPI - GI History of Present Illness Chief Complaint: Abd Pain Narrative Narrative: 22-year-old female past medical history of fatty liver, presents with her mother because of right upper quadrant abdominal pain that she has had since Friday, 5 days ago. She relates history that on 20 November, approximately 11 days ago, she had a liver biopsy because with her history of fatty liver, her LFTs were elevating, and they wanted to make sure that nothing else was going on. She states that she was ruled out for autoimmune hepatitis with the biopsy results, but presents to the emergency department today because she started developing pain after her needle biopsy 5 days ago. She went to urgent care today, and they pressed on her abdomen and it was very sore. She denies any fevers or chills, no nausea or vomiting, no other symptoms. [facility] Medical History Smoker Marfan syndrome ADHD (attention deficit hyperactivity disorder) Retinal detachment, old, total/subtotal Femur fracture, right Home Medications ?Medication ?Instructions ?Recorded ?Last Taken ?Type dextroamphetamine-amphetamine 30 30 mg PO DAILY 04/03/15 Unknown History mg tablet (Adderall) methylphenidate HCl 20 mg tablet 20 mg PO DAILY 04/03/15 Unknown History (Ritalin) medroxyprogesterone 10 mg tablet 10 mg PO DAILY 12/02/23 11/30/23 History vit no.95-ferrous 1 tab PO DAILY 12/02/23 Unknown History fumarate 28 mg-folic acid 800 mcg tablet () Allergy/AdvReac Type Severity Reaction Status Date / Time No Known Allergies Allergy Verified 12/02/23 14:21 Surgical History History of liver biopsy Social History Smoking Status: Light Smoker (<10/day) ROS ROS ED ROS Narrative Constitutional: No fever, no chills. HEENT: No sore throat. No neck pain. No loss of vision. No rhinorrhea. Cardiovascular: No chest pain. No palpitations. No pedal edema. Respiratory: No cough, no shortness of breath. Abdominal: Right upper quadrant abdominal pain. No nausea. No vomiting. Genitourinary: No dysuria. No hematuria. Musculoskeletal: No myalgias. No arthralgias. Neurologic: No headaches. No dizziness. No lightheadedness. Skin: No rash. No change in color. Psychiatric: No depression. No anxiety. EXAM Physical Exam Narrative Exam Narrative: Afebrile. Vital signs noted. HEENT: Normocephalic. Atraumatic. PERRL, EOMI. Neck soft and supple. No point tenderness or step off. Cardiovascular: Regular rate and rhythm. No murmurs, rubs, or gallops appreciated. Respiratory: No tachypnea. Lungs clear to auscultation bilaterally. Gastrointestinal: Abdomen soft, mild tenderness right upper quadrant of abdomen, but negative Diaz sign with normoactive bowel sounds. No rebound or guarding. No noted ecchymosis of abdomen, no erythema. Neurological: Awake. Alert. Nonfocal, nonlateralizing. Skin: No rash. Normal color. No pallor. Musculoskeletal: No pedal edema. Full range of motion extremities. Const Vital Signs: 12/02/23 14:19 12/02/23 16:19 12/02/23 18:00 Temperature 97.2 F L Temperature Source Temporal Pulse Rate 116 H 81 78 Respiratory Rate 18 16 18 Blood Pressure 153/88 H 138/76 H 132/74 H Blood Pressure Mean 109 96 93 Pulse Ox 97 98 96 Oxygen Delivery Method Room Air Room Air Room Air 12/02/23 18:00 Temperature 98.1 F Temperature Source Pulse Rate 78 Respiratory Rate 18 Blood Pressure 132/74 H Blood Pressure Mean 93 Pulse Ox 96 Oxygen Delivery Method MDM MDM MDM Narrative Medical decision making narrative: Patient's area of pain and tenderness seems to be more in the right upper quadrant and possibly over the site of the needle biopsy. In the differential diagnosis is intra-abdominal/liver abscess versus seroma of the abdominal wall versus hematoma. I have low suspicion for intra-abdominal abscess based on the history and physical as it does not support this. Patient did have intermittent tachycardia. She will be bolused normal saline and I will draw CBC, and a CMP to check her liver function studies as well. Serum will be drawn and I do feel CT imaging with IV contrast should be obtained to rule out intra-abdominal process. I reviewed the patient's laboratory work and she has slightly elevated white count of 13.7 which I think is nonspecific, normal hemoglobin of 14.0, hematocrit 42.2, and platelet count slightly elevated at 461 which may be more of an acute phase reactant. Of significance, her AST is 100 and ALT 129 but they have been elevated in the past. I think this goes with her current workup for her liver problems. Glucose is elevated at 153 with a normal anion gap of 7. Electrolytes otherwise unremarkable. Serum test is negative. CT of the abdomen and pelvis with IV contrast radiology report was reviewed and there is no acute intra-abdominal process. There was no comment on any abdominal wall hematoma either. At this point in time, I feel she can be discharged safely home with follow-up for further workup of her elevated liver enzymes. Return instructions to the emergency department were reviewed. Disposition is discharged home in stable condition. History & Record Review Discussion w/independent historian: Patient and Family (Mother) Lab Data Attestation: I reviewed the patient's lab results. Labs: Laboratory Results - last 24 hr 12/02/23 15:35 WBC 13.7 H RBC 4.72 Hgb 14.0 Hct 42.2 MCV 89.4 MCH 29.7 MCHC 33.2 RDW Std Deviation 39.5 RDW Coeff of [place] 12.0 Plt Count 461 H MPV 10.5 Immature Gran % (Auto) 0.300 Neut % (Auto) 70.8 H Lymph % (Auto) 21.9 Perry % (Auto) 5.7 Eos % (Auto) 0.6 Baso % (Auto) 0.7 Absolute Neuts (auto) 9.7 H Absolute Lymphs (auto) 3.01 Nucleated RBC % 0 Sodium 136 Potassium 3.9 Chloride 104 Carbon Dioxide 25.0 Anion Gap 7 BUN 8 Creatinine 0.74 Estim Creat Clear Calc 189.65 Est GFR (MDRD) Af Amer 123 Est GFR (MDRD) Non-Af 102 BUN/Creatinine Ratio 10.8 Glucose 153 H Calcium 9.3 Total Bilirubin 0.40 AST 100 H ALT 129 H Alkaline Phosphatase 92 Total Protein 8.2 Albumin 3.5 Globulin 4.7 H Albumin/Globulin Ratio 0.7 L Serum , Qual NEGATIVE Radiography Diagnostic Testing: Clinical Impression(s) from Imaging Studies Abdomen/Pelvis CT 12/02/23 15:06 IMPRESSION: No acute abnormalities identified.. Electronically Signed: Elvin Santoro MD at 17:18 EDT , Discharge Plan Triage Chief Complaint: Abd Pain ED Provider: Pérez Ren Dx/Rx/DC Orders Clinical Impression: Abdominal pain, Elevated LFTs Instructions: ED Abdominal Pain Unkn Cause Fem Prescriptions: No Action methylphenidate HCl [Ritalin] 20 MG tablet 20 mg PO DAILY dextroamphetamine-amphetamine [Adderall] 30 MG tablet 30 mg PO DAILY medroxyprogesterone 10 mg tablet 10 mg PO DAILY PNV cmb#95-ferrous fumarate-FA [] 28 mg iron- 800 mcg tablet 1 tab PO DAILY Primary Care Provider: Marlena Elaine Referrals: Marlena Elaine MD [Primary Care Provider] - 3-5 Days if not improving Print Language: Occitan Disposition Disposition: Home, Self Care Discharge Date/Time: 12/02/23 18:48
[2023-12-02] MEDS: 0.9% Normal Saline (1000mL) 1,000 ML 999 ML IV (15:53)
[2023-12-02 16:19] VITALS: BP 138/76; PULSE 81; RESP 16; O2SAT 98
[2023-12-02 16:28] LABS: Absolute Lymphocyte Count 3.01 X10^3/uL (0.83-4.51); Absolute Neutrophil Count 9.7 X10^3/uL (2.0-7.7); Basophil% 0.7 % (0-1); Eosinophil# 0.08 X10^3/uL; Eosinophils% 0.6 % (0-5); Hematocrit 42.2 % (37-47); Lymphocyte # 3.01 X10^3/ul (0.83-4.51); Lymphocyte % 21.9 % (19-41); Mean Corp Hgb Conc 33.2 g/dL (32-36); Mean Corpuscular Hgb 29.7 pg (27.0-32.0); Mean Corpuscular Volume 89.4 fL (81-99); Mean Platelet Vol. 10.5 fl (6.2-12.0); Monocyte# 0.78 X10^3/uL; Monocyte% 5.7 % (0-10); NRBC Flagged by Analyzer 0 % (0-5); Neutrophil # 9.72 X10^3/uL (2.7-7.7); Neutrophil % 70.8 % (47-70); Platelet Count 461 K/mm3 (150-450); RBC Distribution Width SD 39.5 fl (35.1-43.9); Red Blood Count 4.72 M/mm3 (4.2-5.4); White Blood Count 13.7 K/mm3 (4.4-11.0)
[2023-12-02 16:53] LABS: Internal QC Validated? YES +Cl - CLEAR BKGD; Pregnancy, Serum, hCG Quali. NEGATIVE Negative; Record Kit Lot#, Serum Preg. 735774
[2023-12-02 16:58] LABS: ALB/GLOB Ratio 0.7 RATIO (0.9-2.4); AST(SGOT) 100 U/L (15-37); Alanine Aminotransfer ALT/SGPT 129 U/L (13-56); Albumin, Serum 3.5 g/dL (3.2-5.0); Alkaline Phosphatase 92 U/L (45-117); Anion Gap 7 (5-15); BUN 8 mg/dL (7-18); BUN/Creat Ratio 10.8 RATIO (10-20); Calcium,Total 9.3 mg/dL (8.5-10.1); Chloride 104 mmol/L (98-107); Creatinine, Serum 0.74 mg/dL (0.55-1.02); EST Glomerular Filtration Rate 102 mL/min (>60); Est Glom Filt Rate - Afr Amer 123 mL/min (>60); Estimated Creatinine Clearance 189.65 ml/min; Globulin 4.7 g/dL (2.2-4.2); Glucose 153 mg/dL (74-106); Potassium 3.9 mmol/L (3.5-5.1); Protein, Total 8.2 g/dL (6.4-8.2); Sodium Level 136 mmol/L (136-145)
[2023-12-02 18:00] VITALS: BP 132/74; PULSE 78; RESP 18; TEMP 36.7; O2SAT 96
== END 2023-12-02 18:48 | disposition home or self-care (01) ==
PROVIDERS: Emergency Provider Emergency Medicine; PCP Internal Medicine; Visit Provider Emergency Medicine
DX: R10.11 Right upper quadrant pain (principal); R79.89 Other specified abnormal findings of blood chemistry; F17.200 Nicotine dependence, unspecified, uncomplicated; F90.9 Attention-deficit hyperactivity disorder, unspecified type; Z79.899 Other long term (current) drug therapy; R00.0 Tachycardia, unspecified
CPT/HCPCS: 74177; 80053; 84703; 85025; 96360; 99282; J7030; Q9967; A4216

== ENCOUNTER 2024-09-29 20:08 | Emergency (ER) | payer MEDICAID, SELFPAY ==
[2024-09-29 20:09] VITALS: BP 145/84; PULSE 93; RESP 18; TEMP 36.6; O2SAT 97; BMI 39.3
--- NOTE | 2024-09-29 20:16 | EKG12_ITS ---
Test Reason : WEAKNESS Blood Pressure : */* mmHG Vent. Rate : 84 BPM Atrial Rate : 84 BPM P-R Int : 158 ms QRS Dur : 78 ms QT Int : 382 ms P-R-T Axes : 44 34 57 degrees QTcB Int : 451 ms Normal sinus rhythm Normal ECG Confirmed by CARMEN MEDRANO, ANDREW ([id number]), script editor BRANDAN VAZQUEZ ([id number]) on 10/01/2024 9:23:01 AM Referred By: HERBER Confirmed By: ANDREW MORALES MD
--- NOTE | 2024-09-29 20:26 | EX.ED.DYSGE1 ---
HPI History of Present Illness Chief Complaint: Weakness [facility] Medical History Smoker Marfan syndrome ADHD (attention deficit hyperactivity disorder) Retinal detachment, old, total/subtotal Femur fracture, right Home Medications ?Medication ?Instructions ?Recorded ?Last Taken ?Type dextroamphetamine-amphetamine 30 30 mg PO DAILY 04/03/15 Unknown History mg tablet (Adderall) methylphenidate HCl 20 mg tablet 20 mg PO DAILY 04/03/15 Unknown History (Ritalin) medroxyprogesterone 10 mg tablet 10 mg PO DAILY 12/02/23 11/30/23 History vit no.95-ferrous 1 tab PO DAILY 12/02/23 Unknown History fumarate 28 mg-folic acid 800 mcg tablet () Allergy/AdvReac Type Severity Reaction Status Date / Time No Known Allergies Allergy Verified 09/29/24 20:11 Surgical History History of liver biopsy Social History Smoking Status: Light Smoker (<10/day) EXAM Physical Exam Const Vital Signs: 09/29/24 20:09 09/29/24 20:22 Temperature 97.8 F Temperature Source Oral Pulse Rate 93 Respiratory Rate 18 Respiratory Effort Normal Respiratory Pattern Normal Blood Pressure 145/84 H Blood Pressure Mean 104 Pulse Ox 97 Oxygen Delivery Method Room Air MDM MDM MDM Narrative Medical decision making narrative: HISTORY OF PRESENT ILLNESS: Chief complaint: Weakness 23-year-old female presents with concern for lightheadedness. She states she feels lightheaded. She notices more when she is lying flat. She denies syncope. Symptoms are not worse with rising from a seated position. Denies associated palpitations, chest pain, vomiting, diarrhea, recent illnesses. No cough. She notes she vapes. She will sometimes she feels like she is not inside of her body. She denies suicidal ideation homicidal ideation of auditory visual hallucinations. Denies headaches. Denies recent sick contacts. She notes she is on her period. Denies urinary complaints REVIEW OF SYSTEMS: Pertinent positives: weakness, lightheadedness Pertinent negatives: Chest pain, shortness of breath, fever, urinary complaints PHYSICAL EXAM: Nursing triage notes reviewed, Vital signs reviewed Constitutional: please see mdm HENT: MMM Eyes: Pupils equal round and reactive to light, Extraocular muscles intact Neck: No stridor, no JVD, full neck ROM Lungs: Clear to auscultation, No wheezing or rales. No increased work of breathing, no conversational dyspnea, no accessory muscle use, no nasal flaring. No respiratory distress noted Heart: Regular rate and rhythm, No murmurs, No rubs and No gallops, 2+ distal pulses (radial, femoral, posterior tibial) in all extremities Abdomen: Soft, there is no tenderness, rigidity, rebound or guarding, no obvious peritoneal signs, no palpable pulsatile abdominal masses, no auscultated abdominal bruit : No CVAT Extremities: No edema Neuro: Alert and oriented x3, neuro exam at baseline, cranial nerves II through XII are intact. No pain with extraocular muscle movement. There is negative test of skew. 5 of 5 strength in upper and lower extremities in flexion extension. Intact sensation to light touch in upper and lower extremity dermatomes. No truncal or extremity ataxia. No dysdiadochokinesia. Normal gait. 2+ reflexes in upper and lower extremities. No meningeal signs. Negative Babinski. NIH of 0. Skin: No rash or lesions noted MEDICAL DECISION MAKING: Chief Complaint: please see HPI External records reviewed: Prior imaging reviewed: CT of the chest from 2016 shows no acute PE Factors affecting care: none Social determinants of health: none History obtained from others: none Consults: none [facility] Narrative: The patient was initially hemodynamically, afebrile and nontoxic. No focal neurologic deficits. No focal cardiopulmonary normalities on initial exam abdomen soft and nontender. No CVA tenderness. I considered the following differential diagnosis: Dehydration, electro disturbance, anemia ALL IMAGES (IF OBTAINED) HAVE BEEN PERSONALLY REVIEWED AND INTERPRETED BY MYSELF. EKG with normal sinus rhythm, rate 84, normal axis, no intervals, no STEMI CBC with leukocytosis suggestive of systemic aphasia however similar to prior studies, no anemia or thrombocytopenia noted Urinalysis no evidence of infection Urine is negative CMP without evidence of acute kidney injury, significant electrolyte abnormality, anion gap to suggest end organ hypo-perfusion, no evidence of metabolic acidosis with a normal bicarbonate, no evidence of hepatobiliary obstructive pathology. Lipase is wnl indicating no pancreatic inflammation. I have personally reviewed the patient's chest x-ray. Chest x-ray is unremarkable for pulmonary edema, pneumothorax, pneumonia or focal cardiopulmonary abnormality. The synthesis of the patient's history, physical exam, labs images suggest no acute life-limiting etiology of other signs of systemic relation is similar to her prior studies. There is no sign of significant electrolyte abnormality, anemia, arrhythmia, pneumonia, UTI or . There was noted hematuria. Encouraged to follow-up with primary care physician for repeat urinalysis and outpatient. Patient is appropriate for discharge home. Strict return precautions were discussed. The patient and/or family, caregivers express understanding. The patient and/or family, caregivers agrees with the plan. Shared decision making: I will have a discussion with the patient and or visitors regarding risk/benefits of further testing or admission. They will be made aware of of the risk/benefits inherent in this decision they will be given the opportunity to voice understanding. Total critical care time today provided was at least 0 minutes. This excludes separately billable procedures. Critical care time (if documented) is secondary to the patient having high probability of clinically significant/life threatening deterioration in the patient's condition which required my urgent intervention. Impression: 1. Lightheadedness 2. Hematuria Dispo: Discharge This note was generated with Plazes dictation software. It may contain incorrect words, spelling, and punctuation that were not noted in review of the chart prior to signing. Lab Data Labs: Laboratory Results - last 24 hr 09/29/24 09/29/24 20:25 21:25 WBC 15.0 H RBC 4.83 Hgb 14.6 Hct 42.1 MCV 87.2 MCH 30.2 MCHC 34.7 RDW Std Deviation 39.3 RDW Coeff of [place] 12.3 Plt Count 503 H MPV 9.4 Immature Gran % (Auto) 0.500 Neut % (Auto) 66.7 Lymph % (Auto) 25.9 [place] % (Auto) 5.8 Eos % (Auto) 0.5 Baso % (Auto) 0.6 Absolute Neuts (auto) 10.0 H Absolute Lymphs (auto) 3.89 Nucleated RBC % 0 Sodium 138 Potassium 3.8 Chloride 102 Carbon Dioxide 23.3 Anion Gap 12 BUN 8 Creatinine 0.84 Estim Creat Clear Calc 160.52 Est GFR (MDRD) Non-Af 99 BUN/Creatinine Ratio 9.7 L Glucose 84 Calcium 9.0 Total Bilirubin 0.33 AST 43 H ALT 68 H Alkaline Phosphatase 80 Total Protein 8.1 Albumin 4.3 Globulin 3.8 Albumin/Globulin Ratio 1.2 Lipase 37 Urine Color Yellow Urine Clarity Clear Urine pH 7.0 Ur Specific [place] 1.010 Urine Protein 15 H Urine Glucose (UA) Normal Urine Ketones Negative Urine Occult Blood 250 H Urine Nitrite Negative Urine Bilirubin Negative Urine Urobilinogen Normal Ur Leukocyte Esterase Negative Urine RBC 10-25 SEEN Urine WBC 0 SEEN Ur Squamous Epith Cells 0-5 SEEN Urine Bacteria 0 SEEN Urine Mucus 0 SEEN Urine Test Negative Radiography Diagnostic Testing: Clinical Impression(s) from Imaging Studies Chest X-Ray 09/29/24 20:52 IMPRESSION: No Acute Findings. [facility] Triage Chief Complaint: Weakness ED Provider: Shiv Roper Dx/Rx/DC Orders Prescriptions: No Action methylphenidate HCl [Ritalin] 20 MG tablet 20 mg PO DAILY dextroamphetamine-amphetamine [Adderall] 30 MG tablet 30 mg PO DAILY medroxyprogesterone 10 mg tablet 10 mg PO DAILY PNV cmb#95-ferrous fumarate-FA [] 28 mg iron- 800 mcg tablet 1 tab PO DAILY Stand Alone Forms: ED Work / School Excuse Primary Care Provider: Marlena Elaine Referrals: Marlena Elaine MD [Primary Care Provider] - Activity Restrictions/Additional Instructions: Thank you for trusting us with your care today! Your labs and images were reassuring. No sign of a life or limb threatening pathology was noted. Please increase your fluid intake. Recommend Body Armor, Pedialyte and Gatorade. Please take Tylenol (2 pills, 650 mg), ibuprofen (2 pills, 400 mg) every 6 hours as needed for pain and fever control. Please return to the emergency department if your symptoms change or worsen. Please follow with your primary care physician for further outpatient evaluation and management. Print Language: Romansh Disposition Disposition: Home, Self Care
[2024-09-29 20:31] LABS: Absolute Lymphocyte Count 3.89 X10^3/uL (0.83-4.51); Basophil# 0.09 X10^3/uL; Basophil% 0.6 % (0-1); Eosinophil# 0.07 X10^3/uL; Eosinophils% 0.5 % (0-5); Hematocrit 42.1 % (37-47); Hemoglobin 14.6 g/dL (12.0-15.0); Lymphocyte # 3.89 X10^3/ul (0.83-4.51); Lymphocyte % 25.9 % (19-41); Mean Corp Hgb Conc 34.7 g/dL (32-36); Mean Corpuscular Hgb 30.2 pg (27.0-32.0); Mean Corpuscular Volume 87.2 fL (81-99); Mean Platelet Vol. 9.4 fl (6.2-12.0); Monocyte# 0.87 X10^3/uL; Monocyte% 5.8 % (0-10); NRBC Flagged by Analyzer 0 % (0-5); Neutrophil # 10.04 X10^3/uL (2.7-7.7); Neutrophil % 66.7 % (47-70); Platelet Count 503 K/mm3 (150-450); RBC Distribution Width CV 12.3 % (11.6-14.6); RBC Distribution Width SD 39.3 fl (35.1-43.9); Red Blood Count 4.83 M/mm3 (4.2-5.4)
[2024-09-29] MEDS: 0.9% Normal Saline (1000mL) 1,000 ML 999 ML IV (20:42)
[2024-09-29 20:48] LABS: ALB/GLOB Ratio 1.2 RATIO (0.9-2.4); AST(SGOT) 43 U/L (<=31); Alanine Aminotransfer ALT/SGPT 68 U/L (<=34); Albumin, Serum 4.3 g/dL (3.5-5.0); Alkaline Phosphatase 80 U/L (35-104); Anion Gap 12 (5-15); BUN 8 mg/dL (4-19); BUN/Creat Ratio 9.7 RATIO (10-20); Carbon Dioxide 23.3 mmol/L (21.0-32.0); Chloride 102 mmol/L (98-108); Creatinine, Serum 0.84 mg/dL (0.70-1.20); EST Glomerular Filtration Rate 99 (>60); Estimated Creatinine Clearance 160.52 ml/min (50-250); Globulin 3.8 g/dL (2.2-4.2); Glucose 84 mg/dL (70-99); Lipase 37 U/L (13-75); Potassium 3.8 mmol/L (3.3-5.1); Protein, Total 8.1 g/dL (5.9-8.4); Sodium Level 138 mmol/L (133-145); Total Bilirubin 0.33 mg/dL (0.00-1.30)
--- NOTE | 2024-09-29 20:52 | RAD_ITS ---
PROCEDURE: CHEST 1 VIEW (PORTABLE) 09/29/2024 REASON FOR EXAM: LIGHTHEADEDNESS TECHNIQUE: Frontal view of the chest. COMPARISON: Chest radiograph dated 04/11/2022. FINDINGS: Hardware: None Heart: The heart size is normal. Lungs: The lungs are clear. Bones: The bones are unremarkable. Other: RAD/Chest 1 View (Portable) IMPRESSION: No Acute Findings. Reading Location: [facility]
[2024-09-29 21:27] LABS: Bacteria 0 SEEN /hpf (None Seen); Mucous, Urine 0 SEEN /hpf (<or=2+); White Blood Cells 0 SEEN /hpf (0-5)
[2024-09-29 21:32] LABS: Color, Urine Yellow (Yellow); Glucose, Dipstick Normal (Normal); Ketone-Dipstick Negative (Negative); Leukocyte Esterase-Dipstick Negative /ul (Negative); Nitrite-Dipstick Negative (Negative); Occult Blood-Urine 250 /ul (Negative); Protein-Dipstick 15 mg/dl (Negative); Urine Bilirubin Dipstick Negative (Negative); Urine Clarity Clear (Clear); Urine Urobilinogen Normal (Normal)
[2024-09-29 21:33] LABS: Internal QC Validated? YES +Cl - CLEAR BKGD; Pregnancy, Urine Negative Negative
[2024-09-29 21:47] LABS: Red Blood Cells-Urine 10-25 SEEN /hpf (0-5); Squamous Epithelial Cells - UA 0-5 SEEN /hpf (5-10)
[2024-09-29 21:52] VITALS: BP 118/66; PULSE 92; RESP 14; TEMP 37.1; O2SAT 100
== END 2024-09-29 22:13 | disposition home or self-care (01) ==
PROVIDERS: Nurse Practitioner; Emergency Provider Emergency Medicine; PCP Internal Medicine; Visit Provider Emergency Medicine
DX: R42 Dizziness and giddiness (principal); R31.9 Hematuria, unspecified; F17.200 Nicotine dependence, unspecified, uncomplicated
CPT/HCPCS: 71045; 80053; 81001; 81025; 83690; 85025; 93005; 99283

== ENCOUNTER 2024-10-06 19:45 | Emergency (ER) | payer MEDICAID, SELFPAY ==
[2024-10-06 19:45] VITALS: BP 143/83; PULSE 102; RESP 20; TEMP 36.1; O2SAT 97; BMI 38.9
--- NOTE | 2024-10-06 20:14 | ED.RN ---
PT STATES SHE DOES NOT FEEL LIKE SHE IS IN HER OWN BODY. PT C/O INTERMITTENT N/T IN CHEST AND LOWER EXTREMITIES. STATES SHE HAS DECREASED APPETITE. SYMPTOMS HAVE BEEN PERSISTENT FOR 4 WEEKS.
--- NOTE | 2024-10-06 20:19 | EKG12_ITS ---
Test Reason : DYSRHYTHMIA Blood Pressure : */* mmHG Vent. Rate : 92 BPM Atrial Rate : 92 BPM P-R Int : 164 ms QRS Dur : 76 ms QT Int : 358 ms P-R-T Axes : 46 32 64 degrees QTcB Int : 442 ms Normal sinus rhythm Normal ECG Confirmed by CARMEN MEDRANO, ANDREW ([id number]), science editor LOS ZARATE ([id number]) on 10/07/2024 8:41:43 AM Referred By: Confirmed By: ANDREW MORALES MD
--- NOTE | 2024-10-06 20:48 | CT_ITS ---
PROCEDURE: BRAIN/HEAD WITHOUT CONTRAST 10/06/2024 REASON FOR EXAM: PARESTHESIAS TECHNIQUE: Head CT without intravenous contrast. Coronal and Sagittal reconstruction series were provided. One or more dose reduction techniques were used (e.g., Automated exposure control, adjustment of the mA and/or kV according to patient size, use of iterative reconstruction technique. COMPARISON: None FINDINGS: * ACUTE: No acute infarct or hemorrhage. No mass effect or herniation. * BRAIN PARENCHYMA: Signal intensities are within normal limits for age. * VENTRICLES/EXTRA-AXIAL SPACES: No hydrocephalus or extra-axial fluid collections. * EXTRACRANIAL STRUCTURES: Visualized osseous structures are normal. Soft tissues are normal. CT/Brain/Head without Contrast IMPRESSION: No acute intracranial abnormality. Reading Location: [facility]
[2024-10-06 20:49] LABS: Absolute Neutrophil Count 12.1 X10^3/uL (2.0-7.7); Basophil# 0.09 X10^3/uL; Basophil% 0.5 % (0-1); Eosinophil# 0.07 X10^3/uL; Eosinophils% 0.4 % (0-5); Hematocrit 42.9 % (37-47); Hemoglobin 14.7 g/dL (12.0-15.0); Lymphocyte % 21.6 % (19-41); Mean Corp Hgb Conc 34.3 g/dL (32-36); Mean Corpuscular Hgb 30.2 pg (27.0-32.0); Mean Corpuscular Volume 88.3 fL (81-99); Mean Platelet Vol. 9.7 fl (6.2-12.0); Monocyte# 0.76 X10^3/uL; Monocyte% 4.6 % (0-10); NRBC Flagged by Analyzer 0 % (0-5); Neutrophil % 72.5 % (47-70); Platelet Count 512 K/mm3 (150-450); RBC Distribution Width CV 12.1 % (11.6-14.6); RBC Distribution Width SD 39.6 fl (35.1-43.9); Red Blood Count 4.86 M/mm3 (4.2-5.4); White Blood Count 16.7 K/mm3 (4.4-11.0)
[2024-10-06 21:35] VITALS: BP 130/76; PULSE 90; RESP 25; O2SAT 96
--- NOTE | 2024-10-06 21:46 | EDS_ITS ---
HPI History of Present Illness Chief Complaint: General Illness Informant: patient and parent Narrative Narrative: Presents to the ED for evaluation of recurrent symptoms. Here with mother reports for the last month intermittent lightheaded symptoms is worsening. No chest pains no shortness of breath. She states will have occasional abdominal discomfort and nausea. She has had generalized paresthesias however the day noted numbness on the left side of her body including her torso. There is no weakness. Denies headache or dizziness. She reports she was here 7 days ago and evaluated. She said multiple testing with EKGs and lab work. No CT brain. Mother patient denies any family history of multiple sclerosis. She reports heart rate normally 90s to 102 recently noticed in the 60s. Follow-up with her PCP 2 days after her visit she was put on Antivert for viral vertigo. She denies any dizzy spinning sensations. She states she has the feelings of depersonalization. Prior to a month ago no similar symptoms. She reports only thing total lab work with white count that was elevated. Denies cough or denies urinary symptoms. Prior similar symptoms: [facility] Medical History Depersonalization disorder Fatty liver Smoker Marfan syndrome ADHD (attention deficit hyperactivity disorder) Retinal detachment, old, total/subtotal Femur fracture, right Home Medications ?Medication ?Instructions ?Recorded ?Last Taken ?Type dextroamphetamine-amphetamine 30 30 mg PO DAILY Unknown History mg tablet (Adderall) methylphenidate HCl 20 mg tablet 20 mg PO DAILY Unknown History (Ritalin) medroxyprogesterone 10 mg tablet 10 mg PO DAILY 11/30/23 History vit no.95-ferrous 1 tab PO DAILY 12/02/23 Unk nown History fumarate 28 mg-folic acid 800 mcg tablet () dextroamphetamine-amphetamine ER 1 cap PO 10/06/24 Unk nown History 30 mg 24hr capsule,extend release dulaglutide 1.5 mg/0.5 mL 1.5 mg subcut QWEEK 10/06/24 Unknown History subcutaneous pen injector (Trulicity) norethindrone (contraceptive) 0.35 0.35 mg PO DAILY Unknown History mg tablet (Deblitane) Allergy/AdvReac Type Severity Reaction Status Date / Time No Known Allergies Allergy Verified 10/06/24 19:45 Surgical History History of liver biopsy Social History Smoking Status: Light Smoker (<10/day) ROS ROS ED Constitutional Constitutional ED: Denies chills, fever(s) or sweats ENT ENT ED: Denies sore throat Cardiovascular Cardiovascular: Reports other Details: Lightheaded symptoms. ; Denies chest pain, leg edema, palpitations or racing heartbeat Respiratory/Chest Respiratory/Chest: Denies cough, dyspnea or dyspnea on exertion Gastrointestinal Gastrointestinal: Reports nausea; Denies abdominal pain, diarrhea or vomiting Genitourinary Genitourinary ED: Denies dysuria, hematuria or urinary frequency Musculoskeletal Musculoskeletal: Denies back pain, extremity pain or neck pain Integumentary Denies rash or wounds Neurologic Neurologic: Reports paresthesias; Denies headache(s) or weakness EXAM Physical Exam Const Vital Signs: 10/06/24 19:45 10/06/24 20:12 10/06/24 21:35 Temperature 97 F L Temperature Source Temporal Pulse Rate 102 H 90 Respiratory Rate 20 H 25 H Respiratory Effort Normal Respiratory Pattern Normal Blood Pressure 143/83 H 130/76 H Blood Pressure Mean 103 94 Pulse Ox 97 96 Oxygen Delivery Method Room Air Room Air Positive well nourished and well developed General Appearance ED: well developed and NAD HEENT Reports moist mucous membranes normocephalic and atraumatic Eyes General Eye ED: Yes normal appearance of both eyes Neck full ROM Chest Wall Chest: Negative for tenderness Resp normal respiratory effort and normal air movement Effort and Inspection: symmetric chest movement; Negative for respiratory distress Cardio regular rate, regular rhythm and no murmurs Peripheral Pulses: pulses 2+ throughout GI normal to inspection, nondistended, normoactive bowel sounds and non-tender Palpation: Negative for guarding or rebound tenderness present Extremity normal to inspection General Extremety ED: Negative for edema or tenderness General Extremity: Negative for edema Neuro oriented x3, CN's II-XII intact bilaterally and no sensory deficits noted Neuro Narrative: No focal deficits. Equal symmetric strength upper and lower extremities 5 out of 5. Soft compartments. Pulses noted distally. Sensorium / Orientation: awake and alert Skin no rashes or lesions noted and no wounds MDM MDM MDM Narrative Medical decision making narrative: Interventions / MDM: Differential diagnosis: Near syncope, paresthesias, leukocytosis Diagnosis considered but do not suspect: Intracranial mass however CT negative. My EKG interpretation: Sinus rhythm 92, no ST or T wave changes QTc 442. Imaging independently reviewed and interpreted by myself: CT brain: No acute process also read by radiology. External documents reviewed: ED visit from 11 days ago normal EKG labs with a white count of 15 urine negative for infection there was hematuria. hCG was negative. Abdominal labs otherwise normal. Test considered but not ordered:N/A ED course: Patient intermittent changes reported paresthesias now in left side subjectively. There is no weakness. Lightheaded symptoms EKG ordered will chec k basic labs will obtain CT brain. CT brain no acute process EKG sinus rhythm no acute findings. 2225: Labs white count 16.7 trending up from previous labs thyroid screening normal electrolytes normal. Mother states no history of blood disorders or leukemia. However she will be referred to hematology for trending of white count. Discussed nonspecific paresthesia with multiple sclerosis in the differential. She is referred to neurology for further evaluation. Re-evaluation: stable Disposition discussed with patient/family/significant other: Patient and mother Case discussed with consulting clinician: N/A This note was generated with [employer] dictation software. It may contain incorrect words, spelling, and punctuation that were not noted in checking the note before signing. Lab Data Attestation: I reviewed the patient's lab results. Labs: Laboratory Results - last 24 hr 10/06/24 20:35 WBC 16.7 H RBC 4.86 Hgb 14.7 Hct 42.9 MCV 88.3 MCH 30.2 MCHC 34.3 RDW Std Deviation 39.6 RDW Coeff of [place] 12.1 Plt Count 512 H MPV 9.7 Immature Gran % (Auto) 0.400 Neut % (Auto) 72.5 H Lymph % (Auto) 21.6 [place] % (Auto) 4.6 Eos % (Auto) 0.4 Baso % (Auto) 0.5 Absolute Neuts (auto) 12.1 H Absolute Lymphs (auto) 3.60 Nucleated RBC % 0 Sodium 138 Potassium 3.9 Chloride 102 Carbon Dioxide 23.1 Anion Gap 13 BUN 10 Creatinine 0.78 Estim Creat Clear Calc 172.04 Est GFR (MDRD) Non-Af 109 BUN/Creatinine Ratio 12.8 Glucose 96 Calcium 9.2 TSH 0.571 Radiography Diagnostic Testing: Clinical Impression(s) from Imaging Studies Brain CT 10/06/24 20:48 IMPRESSION: No acute intracranial abnormality. [facility] Dis[facility] Triage Chief Complaint: General Illness ED Provider: Mike Feldman Dx/Rx/DC Orders Clinical Impression: Paresthesias, Leukocytosis, Lightheaded Instructions: ED Near-Fainting, Uncertain Cause, ED Paraesthesias Prescriptions: No Action methylphenidate HCl [Ritalin] 20 MG tablet 20 mg PO DAILY Patient Comments: PT STATES SHE DOES NOT ALWAYS TAKE THIS DAILY dextroamphetamine-amphetamine [Adderall] 30 MG tablet 30 mg PO DAILY Patient Comments: PT STATES SHE DOES NOT ALWAYS TAKE THIS DAILY dextroamphetamine-amphetamine 30 mg capsule,extended release 24hr 1 cap PO norethindrone (contraceptive) [Deblitane] 0.35 mg tablet 0.35 mg PO DAILY Trulicity 1.5 mg/0.5 mL pen injector 1.5 mg subcut QWEEK medroxyprogesterone 10 mg tablet 10 mg PO DAILY PNV cmb#95-ferrous fumarate-FA [] 28 mg iron- 800 mcg tablet 1 tab PO DAILY Primary Care Provider: Marlena Elaine Referrals: Del Saez MD [Med Staff - Active Staff] - 1-2 Weeks Marlena Elaine MD [Primary Care Provider] - Bora Bacon MD [[facility]] - 1-2 Weeks Activity Restrictions/Additional Instructions: CT brain negative. EKG normal. Thyroid studies electrolytes normal. Labs with leukocytosis white count of 16.7. No clinical signs of infection. Follow-up with Dr. Saez hematology for further workup if needed. With paresthesias recurrent nonspecific follow-up with neurology, Dr. Bacon for further workup if needed. Print Language: Setswana Disposition Disposition: Home, Self Care
[2024-10-06 21:56] LABS: Anion Gap 13 (5-15); BUN 10 mg/dL (4-19); BUN/Creat Ratio 12.8 RATIO (10-20); Calcium,Total 9.2 mg/dL (7.6-11.0); Carbon Dioxide 23.1 mmol/L (21.0-32.0); Chloride 102 mmol/L (98-108); Creatinine, Serum 0.78 mg/dL (0.70-1.20); EST Glomerular Filtration Rate 109 (>60); Estimated Creatinine Clearance 172.04 ml/min (50-250); Glucose 96 mg/dL (70-99); Potassium 3.9 mmol/L (3.3-5.1); Sodium Level 138 mmol/L (133-145); Thyroid Stim Hormone (TSH) 0.571 uIU/mL (0.300-4.200)
[2024-10-06 22:24] VITALS: BP 134/72; PULSE 95; RESP 16; TEMP 36.6; O2SAT 96
== END 2024-10-06 22:30 | disposition home or self-care (01) ==
PROVIDERS: Emergency Provider Emergency Medicine; PCP Internal Medicine; Visit Provider Emergency Medicine
DX: R20.2 Paresthesia of skin (principal); D72.829 Elevated white blood cell count, unspecified; R42 Dizziness and giddiness; F17.200 Nicotine dependence, unspecified, uncomplicated
CPT/HCPCS: 70450; 80048; 84443; 85025; 93005; 99283; A4216

== ENCOUNTER 2024-10-25 00:36 | Emergency (ER) | payer MEDICAID, SELFPAY ==
[2024-10-25 00:37] VITALS: BP 137/76; PULSE 115; RESP 24; TEMP 36.6; O2SAT 100; BMI 38.9
--- NOTE | 2024-10-25 00:46 | EKG12_ITS ---
Test Reason : PALPS Blood Pressure : */* mmHG Vent. Rate : 107 BPM Atrial Rate : 107 BPM P-R Int : 144 ms QRS Dur : 70 ms QT Int : 354 ms P-R-T Axes : 52 54 56 degrees QTcB Int : 472 ms Sinus tachycardia Otherwise normal ECG Confirmed by LORIN MEDRANO, NIMCO ([id number]), avid editor BRANDAN VAZQUEZ ([id number]) on 10/27/2024 11:57:31 AM Referred By: Confirmed By: NIMCO PADGETT MD
--- NOTE | 2024-10-25 00:46 | RAD_ITS ---
PROCEDURE: CHEST 1 VIEW (PORTABLE) 10/25/2024 REASON FOR EXAM: PALPITATIONS TECHNIQUE: Frontal view of the chest. COMPARISON: 09/29/2024 FINDINGS: Patient is rotated to the right. The lungs appear clear. Pulmonary vascularity appears within limits. No evidence of pleural effusion. The cardiac and mediastinal contours appear within limits. The visualized osseous structures appear within limits. RAD/Chest 1 View (Portable) IMPRESSION: No evidence of acute disease. Reading Location: [id number]
--- NOTE | 2024-10-25 00:48 | EX.ED.DYSGE1 ---
HPI History of Present Illness Chief Complaint: Palpitations Narrative Narrative: 23-year-old female presents via EMS with rapid heart rate and palpitations. She relates history that she has been seen twice in the emergency department for feelings like this previously. This evening, just prior to arrival, she states her heart rate shot up to 150 bpm. She felt heart palpitations. She feels lightheaded as well. She has had these symptoms before and she is followed up with her primary care provider. She states that she also has out of body experiences. She was told previously that this may be due to her mental health, but she is also being worked up for MS. She states that she felt short of breath, mainly in her throat. She will also cough on occasion with this. Her main concern was her elevated heart rate and this feeling of shortness of breath and lightheadedness as well. [facility] Medical History Depersonalization disorder Fatty liver Smoker Marfan syndrome ADHD (attention deficit hyperactivity disorder) Retinal detachment, old, total/subtotal Femur fracture, right Home Medications ?Medication ?Instructions ?Recorded ?Last Taken ?Type dextroamphetamine-amphetamine 30 30 mg PO DAILY 04/03/15 Unknown History mg tablet (Adderall) methylphenidate HCl 20 mg tablet 20 mg PO DAILY 04/03/15 Unknown History (Ritalin) medroxyprogesterone 10 mg tablet 10 mg PO DAILY 12/02/23 11/30/23 History vit no.95-ferrous 1 tab PO DAILY 12/02/23 Unknown History fumarate 28 mg-folic acid 800 mcg tablet () dextroamphetamine-amphetamine ER 1 cap PO 10/06/24 Unknown History 30 mg 24hr capsule,extend release dulaglutide 1.5 mg/0.5 mL 1.5 mg subcut QWEEK 10/06/24 Unknown History subcutaneous pen injector (Trulicity) norethindrone (contraceptive) 0.35 0.35 mg PO DAILY 10/06/24 Unknown History mg tablet (Deblitane) Allergy/AdvReac Type Severity Reaction Status Date / Time No Known Allergies Allergy Verified 10/06/24 19:45 Surgical History History of liver biopsy Social History Smoking Status: Light Smoker (<10/day) ROS ROS ED ROS Narrative Review of systems positive for palpitations, rapid heart rate, lightheadedness, shortness of breath. She felt lightheaded when walking out to the ambulance. No other exacerbating or alleviating factors. EXAM Physical Exam Narrative Exam Narrative: Afebrile. Vital signs noted. Nontoxic-appearing. Cardiovascular examination reveals a regular tachycardia. Lungs are clear to auscultation bilaterally. Abdomen is soft and nontender without guarding or rebound. Positive bowel sounds. Neurological examination is nonfocal and nonlateralizing. No pedal edema. Const Vital Signs: 10/25/24 00:37 10/25/24 00:41 10/25/24 00:53 Temperature 97.8 F Temperature Source Temporal Pulse Rate 115 H Pulse Rate [Lying] 95 Pulse Rate [Sitting (for 1 minute prior to obtaining)] 98 Pulse Rate [Standing (for 1 minute prior to obtaining)] 105 H Respiratory Rate 24 H Respiratory Effort Normal Blood Pressure 137/76 H Blood Pressure [Lying] 120/76 Blood Pressure [Sitting (for 1 minute prior to obtaining)] 120/79 Blood Pressure [Standing (for 1 minute prior to obtaining)] 125/84 H Blood Pressure Mean 96 Blood Pressure Mean [Lying] 90 Blood Pressure Mean [Sitting (for 1 minute prior to obtaining)] 92 Blood Pressure Mean [Standing (for 1 minute prior to obtaining)] 97 Pulse Ox 100 Oxygen Delivery Method Room Air 10/25/24 01:56 Temperature 97.8 F Temperature Source Pulse Rate 98 Pulse Rate [Lying] Pulse Rate [Sitting (for 1 minute prior to obtaining)] Pulse Rate [Standing (for 1 minute prior to obtaining)] Respiratory Rate 18 Respiratory Effort Blood Pressure 123/76 H Blood Pressure [Lying] Blood Pressure [Sitting (for 1 minute prior to obtaining)] Blood Pressure [Standing (for 1 minute prior to obtaining)] Blood Pressure Mean 91 Blood Pressure Mean [Lying] Blood Pressure Mean [Sitting (for 1 minute prior to obtaining)] Blood Pressure Mean [Standing (for 1 minute prior to obtaining)] Pulse Ox 99 Oxygen Delivery Method MDM MDM MDM Narrative Medical decision making narrative: Differential diagnosis includes sinus tachycardia versus atrial fibrillation versus stress and anxiety reaction versus POTS syndrome versus orthostatic hypotension. Comprehensive workup was pursued. I reviewed her prior records as well. EKG was obtained and interpreted by myself independently as sinus tachycardia 107 bpm without ectopy or acute ST changes. No STEMI. Patient able to ambulate in the ED. I reviewed her laboratory work and she does have chronic leukocytosis like she states with a white count of 15.8. When compared to prior labs, it is chronically elevated. The same goes for platelet count of 503 today. In review of prior labs she is thrombophilic. Hemoglobin slightly hemoconcentrated at 15.3. Electrolyte panel remarkable for carbon dioxide of 20.5, magnesium 2.3. LFTs are noted to be 36 and 44 and her AST and ALT respectively. Serum negative. Chest x-ray in 1 view interpreted by myself independently shows no acute process. I reviewed the radiology report which confirms my independent interpretation. At this point in time, she was given a Zofran because she states that she coughs and almost vomits. At this point in time I do not feel she needs observation or admission. These are the same symptoms that she has had and is currently being worked up for by her primary care provider and she states that she is supposed to see neurology as well. She complained of abdominal pain prior to discharge, and was given Bentyl 20 mg orally. We do not feel she requires any imaging of her abdomen as she has a nonsurgical abdomen on examination. Disposition is discharged home in stable condition. History & Record Review Discussion w/independent historian: Patient Lab Data Attestation: I reviewed the patient's lab results. Labs: Laboratory Results - last 24 hr 10/25/24 00:55 WBC 15.8 H RBC 5.00 Hgb 15.3 H Hct 43.9 MCV 87.8 MCH 30.6 MCHC 34.9 RDW Std Deviation 40.1 RDW Coeff of [place] 12.5 Plt Count 503 H MPV 9.7 Immature Gran % (Auto) 0.400 Neut % (Auto) 62.3 Lymph % (Auto) 28.5 Ada % (Auto) 7.2 Eos % (Auto) 1.0 Baso % (Auto) 0.6 Absolute Neuts (auto) 9.8 H Absolute Lymphs (auto) 4.49 Nucleated RBC % 0 Sodium 137 Potassium 3.5 Chloride 103 Carbon Dioxide 20.5 L Anion Gap 13 BUN 9 Creatinine 0.77 Estim Creat Clear Calc 174.27 Est GFR (MDRD) Non-Af 109 BUN/Creatinine Ratio 11.6 Glucose 105 H Calcium 8.7 Magnesium 2.3 H Total Bilirubin 0.26 AST 36 H ALT 44 H Alkaline Phosphatase 80 Total Protein 8.0 Albumin 4.2 Globulin 3.8 Albumin/Globulin Ratio 1.1 Serum , Qual NEGATIVE Radiography Diagnostic Testing: Clinical Impression(s) from Imaging Studies Chest X-Ray 10/25/24 00:46 IMPRESSION: No evidence of acute disease. Reading Location: [facility] Discharge Plan Triage Chief Complaint: Palpitations ED Provider: Pérez Ren Dx/Rx/DC Orders Clinical Impression: Palpitations, Nausea, Lightheadedness Instructions: ED Palpitations, ED Near-Fainting, Uncertain Cause Prescriptions: No Action methylphenidate HCl [Ritalin] 20 MG tablet 20 mg PO DAILY Patient Comments: PT STATES SHE DOES NOT ALWAYS TAKE THIS DAILY dextroamphetamine-amphetamine [Adderall] 30 MG tablet 30 mg PO DAILY Patient Comments: PT STATES SHE DOES NOT ALWAYS TAKE THIS DAILY dextroamphetamine-amphetamine 30 mg capsule,extended release 24hr 1 cap PO norethindrone (contraceptive) [Deblitane] 0.35 mg tablet 0.35 mg PO DAILY Trulicity 1.5 mg/0.5 mL pen injector 1.5 mg subcut QWEEK medroxyprogesterone 10 mg tablet 10 mg PO DAILY PNV cmb#95-ferrous fumarate-FA [] 28 mg iron- 800 mcg tablet 1 tab PO DAILY Primary Care Provider: Marlena Elaine Referrals: Marlena Elaine MD [Primary Care Provider] - As soon as possible Print Language: Estonian Disposition Disposition: Home, Self Care Discharge Date/Time: 10/25/24 02:02
[2024-10-25 00:53] VITALS: BP 120/76; BP 120/79; BP 125/84; PULSE 105; PULSE 95; PULSE 98
[2024-10-25 01:10] LABS: Absolute Lymphocyte Count 4.49 X10^3/uL (0.83-4.51); Absolute Neutrophil Count 9.8 X10^3/uL (2.0-7.7); Basophil% 0.6 % (0-1); Eosinophil# 0.15 X10^3/uL; Hematocrit 43.9 % (37-47); Hemoglobin 15.3 g/dL (12.0-15.0); Lymphocyte # 4.49 X10^3/ul (0.83-4.51); Lymphocyte % 28.5 % (19-41); Mean Corp Hgb Conc 34.9 g/dL (32-36); Mean Corpuscular Hgb 30.6 pg (27.0-32.0); Mean Corpuscular Volume 87.8 fL (81-99); Mean Platelet Vol. 9.7 fl (6.2-12.0); Monocyte# 1.14 X10^3/uL; Monocyte% 7.2 % (0-10); NRBC Flagged by Analyzer 0 % (0-5); Neutrophil # 9.82 X10^3/uL (2.7-7.7); Neutrophil % 62.3 % (47-70); Platelet Count 503 K/mm3 (150-450); RBC Distribution Width CV 12.5 % (11.6-14.6); RBC Distribution Width SD 40.1 fl (35.1-43.9); White Blood Count 15.8 K/mm3 (4.4-11.0)
[2024-10-25 01:23] LABS: Internal QC Validated? YES +Cl - CLEAR BKGD; Pregnancy, Serum, hCG Quali. NEGATIVE Negative
[2024-10-25 01:29] LABS: ALB/GLOB Ratio 1.1 RATIO (0.9-2.4); AST(SGOT) 36 U/L (<=31); Alanine Aminotransfer ALT/SGPT 44 U/L (<=34); Albumin, Serum 4.2 g/dL (3.5-5.0); Alkaline Phosphatase 80 U/L (35-104); Anion Gap 13 (5-15); BUN 9 mg/dL (4-19); BUN/Creat Ratio 11.6 RATIO (10-20); Calcium,Total 8.7 mg/dL (7.6-11.0); Carbon Dioxide 20.5 mmol/L (21.0-32.0); Chloride 103 mmol/L (98-108); Creatinine, Serum 0.77 mg/dL (0.70-1.20); EST Glomerular Filtration Rate 109 (>60); Estimated Creatinine Clearance 174.27 ml/min (50-250); Globulin 3.8 g/dL (2.2-4.2); Glucose 105 mg/dL (70-99); Magnesium 2.3 mg/dL (1.5-2.2); Potassium 3.5 mmol/L (3.3-5.1); Sodium Level 137 mmol/L (133-145); Total Bilirubin 0.26 mg/dL (0.00-1.30)
[2024-10-25] MEDS: Ondansetron ODT 4 MG Tablet PO (01:53)
[2024-10-25 01:56] VITALS: BP 123/76; PULSE 98; RESP 18; TEMP 36.6; O2SAT 99
[2024-10-25] MEDS: Dicyclomine 10 MG Capsule 20 MG PO (02:01)
== END 2024-10-25 02:02 | disposition home or self-care (01) ==
PROVIDERS: Emergency Provider Emergency Medicine; PCP Internal Medicine; Visit Provider Emergency Medicine
DX: R00.2 Palpitations (principal); R11.0 Nausea; R42 Dizziness and giddiness; F17.200 Nicotine dependence, unspecified, uncomplicated
CPT/HCPCS: 71045; 80053; 83735; 84703; 85025; 93005; 99285; A4216

== ENCOUNTER 2024-10-28 22:29 | Emergency (ER) | payer MEDICAID, SELFPAY ==
[2024-10-28 22:31] VITALS: BP 140/81; PULSE 96; RESP 20; TEMP 36.6; O2SAT 97; BMI 38.6
--- NOTE | 2024-10-28 23:12 | EKG12_ITS ---
Test Reason : DYSRHYTHMIA Blood Pressure : */* mmHG Vent. Rate : 78 BPM Atrial Rate : 78 BPM P-R Int : 160 ms QRS Dur : 78 ms QT Int : 402 ms P-R-T Axes : 49 29 50 degrees QTcB Int : 458 ms Normal sinus rhythm Normal ECG Confirmed by CARMEN MEDRANO, ANDREW ([id number]), editorial director BRANDAN VAZQUEZ ([id number]) on 10/29/2024 8:21:54 AM Referred By: Julianna Hughes Confirmed By: ANDREW MORALES MD
--- NOTE | 2024-10-28 23:12 | CT_ITS ---
PROCEDURE: CTA CHST, ABD, PEL W AND/OR WO 10/29/2024 REASON FOR EXAM: CHEST PAIN, HX OF MARFANS TECHNIQUE: Chest abdomen and pelvis CT with intravenous contrast. Coronal and Sagittal reconstruction series were provided. Coronal and sagittal MIP images One or more dose reduction techniques were used (e.g., Automated exposure control, adjustment of the mA and/or kV according to patient size, use of iterative reconstruction technique. PATIENT PREPARATION: Per protocol ORAL CONTRAST TYPE: None. AMOUNT: mL CONTRAST: 100 cc Isovue 370 IV RADIATION DOSE SUMMARY: CTDlvol: 20.19 mGy DLP: 1472.43 mGycm COMPARISON: CT abdomen and pelvis 12/02/2023 FINDINGS: CHEST: Thoracic aorta and visualized great vessels appear within limits without aneurysm or dissection. Beam hardening, spray artifact from bolus. No large central saddle pulmonary embolism identified. No pericardial or pleural effusion. The central airways appear patent. The lungs appear clear. The visualized osseous structures appear within limits. ABDOMEN AND PELVIS: Abdominal aorta, right and left common and external iliac arteries appear within limits. No aneurysm or dissection. The celiac, SMA and MAX fill with contrast as expected. The liver, gallbladder, adrenal glands, kidneys, pancreas and spleen appear within limits. No bowel dilation or free air. Normal caliber appendix without secondary signs. The ovaries/adnexa, uterus and collapse appearing urinary bladder appear within limits. No free fluid. The visualized osseous structures appear within limits. Intramedullary pin noted partially imaged right femur. CT/CTA Chst, Abd, Pel W and/or WO IMPRESSION: No evidence of acute process within the chest, abdomen or pelvis as above. Reading Location: [id number]
--- NOTE | 2024-10-28 23:12 | EX.ED.DYSGE1 ---
HPI History of Present Illness Chief Complaint: General Illness Detail of Chief Complaint: Not feeling well Informant: patient Narrative Narrative: Patient presents with complaint of burning in her chest and entire body. Symptoms started 2 hours ago. She felt nauseated and dry heaves. Generally feels weak. She complains of discomfort in her back and in her entire body. She has history of Marfan's. She has had multiple visits this month for not feeling well. She tells me she got started on new anxiety medication yesterday and started BuSpar as well as Cymbalta. Currently just feels weak and some mild nausea. She cannot remember the last time she had a scan of her chest to look at her her aorta. She states she had a panic attack last week and called EMS. She denies increase stressors. [facility] Medical History Depersonalization disorder Fatty liver Smoker Marfan syndrome ADHD (attention deficit hyperactivity disorder) Retinal detachment, old, total/subtotal Femur fracture, right Home Medications ?Medication ?Instructions ?Recorded ?Last Taken ?Type dextroamphetamine-amphetamine 30 30 mg PO DAILY 04/03/15 Unknown History mg tablet (Adderall) methylphenidate HCl 20 mg tablet 20 mg PO DAILY 04/03/15 Unknown History (Ritalin) medroxyprogesterone 10 mg tablet 10 mg PO DAILY 12/02/23 11/30/23 History vit no.95-ferrous 1 tab PO DAILY 12/02/23 Unknown History fumarate 28 mg-folic acid 800 mcg tablet () dextroamphetamine-amphetamine ER 1 cap PO 10/06/24 Unknown History 30 mg 24hr capsule,extend release dulaglutide 1.5 mg/0.5 mL 1.5 mg subcut QWEEK 10/06/24 Unknown History subcutaneous pen injector (Trulicity) norethindrone (contraceptive) 0.35 0.35 mg PO DAILY 10/06/24 Unknown History mg tablet (Deblitane) lorazepam 1 mg tablet (Ativan) 1 mg PO TID PRN anxiety #10 tabs 10/29/24 Unknown Rx Allergy/AdvReac Type Severity Reaction Status Date / Time No Known Allergies Allergy Verified 10/28/24 22:29 Surgical History History of liver biopsy Social History Smoking Status: Light Smoker (<10/day) ROS ROS ED Review of Systems ROS Unobtainable: other Constitutional Constitutional ED: Reports lethargy; Denies chills, fever(s), sweats or weight loss Eyes Eyes: Denies blurry vision, change in vision or diplopia ENT ENT ED: Denies rhinorrhea or sore throat Cardiovascular Cardiovascular: Reports chest pain and racing heartbeat; Denies orthopnea Respiratory/Chest Respiratory/Chest: Denies cough, dyspnea, dyspnea on exertion, orthopnea or sputum Gastrointestinal Gastrointestinal: Reports nausea and vomiting; Denies abdominal pain or diarrhea Genitourinary Genitourinary ED: Denies dysuria, hematuria or urinary frequency Musculoskeletal Musculoskeletal: Denies arthralgias, back pain, myalgias or neck pain Integumentary Denies abscess, Abrasions or rash Neurologic Neurologic: Denies headache(s) or weakness Psychiatric Psychiatric: Denies anxiety, depression or suicidal thoughts Endocrine Endocrinology: Denies polydipsia, polyphagia or polyuria Hematologic/Lymphatic Hematologic/Lymphatic: Denies easy bleeding, easy bruising or lymphadenopathy Allergic/Immunologic Allergic/Immunologic ED: Denies mouth swelling, tongue swelling or urticaria EXAM Physical Exam Const Vital Signs: 10/28/24 22:31 10/28/24 23:34 10/29/24 00:29 Temperature 97.8 F Temperature Source Oral Pulse Rate 96 80 Respiratory Rate 20 H 13 Respiratory Effort Normal Respiratory Pattern Normal Blood Pressure 140/81 H 124/75 H Blood Pressure Mean 100 91 Pulse Ox 97 98 Oxygen Delivery Method Room Air Room Air Positive well nourished and well developed General Appearance ED: well developed and NAD HEENT Reports TM's clear and moist mucous membranes normocephalic and atraumatic; Negative for trauma or tenderness Tympanic Membrane ED: Yes TM's clear Eyes PERRL and EOMs intact bilaterally General Eye ED: Negative for pale conjunctiva or scleral icterus Neck no lymphadenopathy, supple and no JVD General: Negative for tenderness Chest Wall inspection of chest normal and palpation of chest normal Chest: Negative for tenderness Resp normal respiratory effort and clear to auscultation bilaterally Effort and Inspection: Negative for respiratory distress or pain with movement Auscultation: Negative for rhonchi, wheezes or diminished lung sounds Cardio regular rate, regular rhythm, S1 normal heart sound, S2 normal heart sound and no murmurs Peripheral Pulses: pulses 2+ throughout GI normal to inspection, nondistended, normoactive bowel sounds, soft to palpation, non-tender, non-distended and no masses Back/Spine no CVA tenderness and no thoracic nor lumbar tenderness Extremity normal to inspection General Extremety ED: Negative for edema General Extremity: Negative for edema Neuro oriented x3, CN's II-XII intact bilaterally, no sensory deficits noted and gait normal Sensorium / Orientation: awake, alert, oriented to person, oriented to place and oriented to time Motor Exam: strength 5/5 throughout and strength abnormal Psych mental status grossly normal Skin no rashes or lesions noted and no wounds MDM MDM MDM Narrative Medical decision making narrative: Patient presents with multiple vague complaints and chest discomfort. She has history of Marfan's. Has had several visits in the past for not feeling well. Started new anxiety medications yesterday. She denies feeling suicidal or homicidal. IV line established. EKG obtained arrival shows sinus rhythm with rate of 78 bpm with no acute ST segment changes. CBC with differential was significant for an elevated WBC count of 20.8 with hemoglobin 14.5 and platelet count of 399. Patient has history of chronically elevated WBC counts. Chemistries unremarkable. Serum hCG was negative. I did obtain a CTA of the chest abdomen pelvis that was unremarkable. She was medicated with milligram of Ativan and felt markedly improved. At this point she will be discharged home. I suspect likely anxiety. I will write her a prescription for as needed Ativan. Lab Data Attestation: I reviewed the patient's lab results. Labs: Laboratory Results - last 24 hr 10/28/24 10/28/24 23:35 23:40 WBC 20.8 H RBC 4.70 Hgb 14.5 Hct 41.2 MCV 87.7 MCH 30.9 MCHC 35.2 RDW Std Deviation 38.9 RDW Coeff of [place] 12.1 Plt Count 399 MPV 10.9 Immature Gran % (Auto) 0.500 Neut % (Auto) 80.3 H Lymph % (Auto) 13.7 L Wilkes % (Auto) 4.8 Eos % (Auto) 0.2 Baso % (Auto) 0.5 Absolute Neuts (auto) 16.7 H Absolute Lymphs (auto) 2.85 Nucleated RBC % 0 Sodium 135 Potassium 3.8 Chloride 100 Carbon Dioxide 20.9 L Anion Gap 15 BUN 9 Creatinine 0.83 Estim Creat Clear Calc 160.90 Est GFR (MDRD) Non-Af 100 BUN/Creatinine Ratio 10.9 Glucose 94 Calcium 8.9 Serum , Qual NEGATIVE Radiography Diagnostic Testing: Clinical Impression(s) from Imaging Studies Chest/Abdomen/Pelvis CTA 10/28/24 23:12 IMPRESSION: No evidence of acute process within the chest, abdomen or pelvis as above. Reading Location: [facility] EKG Initial EKG: Attestation: I personally reviewed and interpreted this EKG as follows: Comments: Sinus rhythm with a rate of 78 bpm with no acute ST segment change Discharge Plan Triage Chief Complaint: General Illness ED Provider: Julianna Hughes Dx/Rx/DC Orders Clinical Impression: Anxiety Instructions: ED Anxiety Reaction Prescriptions: New lorazepam [Ativan] 1 mg tablet 1 mg PO TID PRN (Reason: anxiety) Qty: 10 0RF No Action methylphenidate HCl [Ritalin] 20 MG tablet 20 mg PO DAILY Patient Comments: PT STATES SHE DOES NOT ALWAYS TAKE THIS DAILY dextroamphetamine-amphetamine [Adderall] 30 MG tablet 30 mg PO DAILY Patient Comments: PT STATES SHE DOES NOT ALWAYS TAKE THIS DAILY dextroamphetamine-amphetamine 30 mg capsule,extended release 24hr 1 cap PO norethindrone (contraceptive) [Deblitane] 0.35 mg tablet 0.35 mg PO DAILY Trulicity 1.5 mg/0.5 mL pen injector 1.5 mg subcut QWEEK medroxyprogesterone 10 mg tablet 10 mg PO DAILY PNV cmb#95-ferrous fumarate-FA [] 28 mg iron- 800 mcg tablet 1 tab PO DAILY Primary Care Provider: Marlena Elaine Referrals: Marlena Elaine MD [Primary Care Provider] - 3-5 Days Print Language: Italian Disposition Disposition: Home, Self Care
[2024-10-29 00:08] LABS: Internal QC Validated? YES +Cl - CLEAR BKGD; Pregnancy, Serum, hCG Quali. NEGATIVE Negative
[2024-10-29 00:09] LABS: Absolute Lymphocyte Count 2.85 X10^3/uL (0.83-4.51); Absolute Neutrophil Count 16.7 X10^3/uL (2.0-7.7); Basophil# 0.11 X10^3/uL; Basophil% 0.5 % (0-1); Eosinophil# 0.04 X10^3/uL; Eosinophils% 0.2 % (0-5); Hematocrit 41.2 % (37-47); Hemoglobin 14.5 g/dL (12.0-15.0); Lymphocyte # 2.85 X10^3/ul (0.83-4.51); Lymphocyte % 13.7 % (19-41); Mean Corp Hgb Conc 35.2 g/dL (32-36); Mean Corpuscular Hgb 30.9 pg (27.0-32.0); Mean Corpuscular Volume 87.7 fL (81-99); Mean Platelet Vol. 10.9 fl (6.2-12.0); Monocyte# 0.99 X10^3/uL; Monocyte% 4.8 % (0-10); NRBC Flagged by Analyzer 0 % (0-5); Neutrophil # 16.73 X10^3/uL (2.7-7.7); Neutrophil % 80.3 % (47-70); POSITIVE COUNT YES; RBC Distribution Width CV 12.1 % (11.6-14.6); RBC Distribution Width SD 38.9 fl (35.1-43.9); White Blood Count 20.8 K/mm3 (4.4-11.0)
[2024-10-29 00:11] LABS: Anion Gap 15 (5-15); BUN 9 mg/dL (4-19); BUN/Creat Ratio 10.9 RATIO (10-20); Calcium,Total 8.9 mg/dL (7.6-11.0); Carbon Dioxide 20.9 mmol/L (21.0-32.0); Chloride 100 mmol/L (98-108); Creatinine, Serum 0.83 mg/dL (0.70-1.20); EST Glomerular Filtration Rate 100 (>60); Glucose 94 mg/dL (70-99); Potassium 3.8 mmol/L (3.3-5.1); Sodium Level 135 mmol/L (133-145)
[2024-10-29 00:19] LABS: Differential Indicated SCAN CRITERIA MET
[2024-10-29] MEDS: Lorazepam 2 MG/ML WCH Syringe 1 MG IV (00:24)
[2024-10-29 00:29] VITALS: BP 124/75; PULSE 80; RESP 13; O2SAT 98
[2024-10-29 00:46] LABS: Platelet Count 399 K/mm3 (150-450)
[2024-10-29 01:28] VITALS: BP 126/75; PULSE 87; RESP 18; TEMP 36.6; O2SAT 96
== END 2024-10-29 01:29 | disposition home or self-care (01) ==
PROVIDERS: Emergency Provider Emergency Medicine; PCP Internal Medicine; Referring Provider Emergency Medicine; Visit Provider Emergency Medicine
DX: F41.9 Anxiety disorder, unspecified (principal); Q87.40 Marfan syndrome, unspecified; F17.200 Nicotine dependence, unspecified, uncomplicated
CPT/HCPCS: 71275; 74174; 80048; 84703; 85025; 93005; 99284; Q9967; A4216

== ENCOUNTER 2024-12-02 20:46 | Emergency (ER) | payer MEDICAID, SELFPAY ==
[2024-12-02 20:47] VITALS: BP 152/94; PULSE 115; RESP 16; TEMP 36.4; O2SAT 98; BMI 38.7
--- NOTE | 2024-12-02 21:05 | EKG12_ITS ---
Test Reason : DYSRHYTHMIA Blood Pressure : */* mmHG Vent. Rate : 108 BPM Atrial Rate : 108 BPM P-R Int : 146 ms QRS Dur : 76 ms QT Int : 326 ms P-R-T Axes : 55 56 52 degrees QTcB Int : 436 ms Sinus tachycardia Otherwise normal ECG Confirmed by LORIN MEDRANO, NIMCO ([id number]), fan mail editor LOS ZRAATE ([id number]) on 12/06/2024 6:47:49 AM Referred By: TL Confirmed By: NIMCO PADGETT MD
--- NOTE | 2024-12-02 21:08 | EX.ED.DYSGE1 ---
HPI History of Present Illness Chief Complaint: Palpitations Informant: patient Narrative Narrative: Patient presents noting more frequent PVCs are [id number]-[id number] for last 2 days. She has had for years she is follows cardiology. She admits to coffee use daily she took 1 today she vapes. Denies energy drinks. No cough. No recent travel or surgeries. No history of PE or DVT. Last menstrual period in the last month. States with the symptoms she feels weak sometimes feels dizzy. No cough symptoms. She states the nausea makes her want to cough. No vomiting or diarrhea. She called nursing line through cardiology office was referred to the ED. Prior similar symptoms: Yes PFSH [facility] Medical History Depersonalization disorder Fatty liver Smoker Marfan syndrome ADHD (attention deficit hyperactivity disorder) Retinal detachment, old, total/subtotal Femur fracture, right Home Medications ?Medication ?Instructions ?Recorded ?Last Taken ?Type dextroamphetamine-amphetamine 30 30 mg PO DAILY 04/03/15 Unknown History mg tablet (Adderall) methylphenidate HCl 20 mg tablet 20 mg PO DAILY 04/03/15 Unknown History (Ritalin) medroxyprogesterone 10 mg tablet 10 mg PO DAILY 12/02/23 11/30/23 History vit no.95-ferrous 1 tab PO DAILY 12/02/23 Unknown History fumarate 28 mg-folic acid 800 mcg tablet () dextroamphetamine-amphetamine ER 1 cap PO 10/06/24 Unknown History 30 mg 24hr capsule,extend release dulaglutide 1.5 mg/0.5 mL 1.5 mg subcut QWEEK 10/06/24 Unknown History subcutaneous pen injector (Trulicity) norethindrone (contraceptive) 0.35 0.35 mg PO DAILY 10/06/24 Unknown History mg tablet (Deblitane) lorazepam 1 mg tablet (Ativan) 1 mg PO TID PRN anxiety #10 tabs 10/29/24 Unknown Rx Allergy/AdvReac Type Severity Reaction Status Date / Time No Known Allergies Allergy Verified 12/02/24 20:47 Surgical History History of liver biopsy Social History Smoking Status: Light Smoker (<10/day) ROS ROS ED Constitutional Constitutional ED: Denies chills, fever(s) or sweats ENT ENT ED: Denies sore throat Cardiovascular Cardiovascular: Reports palpitations, racing heartbeat and other; Denies chest pain or leg edema Respiratory/Chest Respiratory/Chest: Denies cough, dyspnea or dyspnea on exertion Gastrointestinal Gastrointestinal: Reports nausea; Denies abdominal pain, diarrhea or vomiting Genitourinary Genitourinary ED: Denies dysuria, hematuria or urinary frequency Musculoskeletal Musculoskeletal: Denies back pain, extremity pain or neck pain Integumentary Denies rash or wounds Neurologic Neurologic: Denies headache(s), paresthesias or weakness EXAM Physical Exam Const Vital Signs: 12/02/24 20:47 12/02/24 21:12 12/02/24 21:47 Temperature 97.5 F L Temperature Source Temporal Pulse Rate 115 H 103 H Respiratory Rate 16 15 Respiratory Effort Normal Blood Pressure 152/94 H 130/88 H Blood Pressure Mean 113 102 Pulse Ox 98 100 Oxygen Delivery Method Room Air Room Air 12/02/24 22:00 12/02/24 23:00 12/02/24 23:42 Temperature 97.8 F Temperature Source Pulse Rate 99 99 95 Respiratory Rate 24 H 22 H 16 Respiratory Effort Blood Pressure 138/92 H 139/89 H 135/79 H Blood Pressure Mean 107 105 97 Pulse Ox 100 96 97 Oxygen Delivery Method Room Air Room Air Positive well nourished and well developed General Appearance ED: well developed and NAD HEENT Reports moist mucous membranes normocephalic and atraumatic Eyes General Eye ED: Yes normal appearance of both eyes Neck full ROM Chest Wall Chest: Negative for tenderness Resp normal respiratory effort and normal air movement Effort and Inspection: symmetric chest movement; Negative for respiratory distress Cardio regular rhythm and no murmurs Rate: tachycardic Peripheral Pulses: pulses 2+ throughout GI normal to inspection, nondistended, normoactive bowel sounds and non-tender Palpation: Negative for guarding or rebound tenderness present Extremity normal to inspection General Extremety ED: Negative for edema or tenderness General Extremity: Negative for edema Neuro oriented x3, CN's II-XII intact bilaterally and no sensory deficits noted Sensorium / Orientation: awake and alert Skin no rashes or lesions noted and no wounds MDM MDM MDM Narrative Medical decision making narrative: Interventions / MDM: Differential diagnosis: Palpitations, weakness, history of PVCs Diagnosis considered but do not suspect: PE however D-dimer negative. Electrolyte abnormalities however labs are normal. Anemia however hemoglobin normal. UTI however urine negative. My EKG interpretation: Sinus rate of 108, no ST or T wave changes QTc 436. Imaging independently reviewed and interpreted by myself: N/A External documents reviewed: N/A Test considered but not ordered:N/A ED course: Patient history of PVCs reporting more palpitations more recurrent beats. EKG no current PVCs she will be placed on the monitor she is tachycardic. Low risk Wells criteria for PE. Basic labs to be ordered with D-dimer. Will give fluids and Zofran for symptoms. Will reevaluate. 2305: D-dimer negative. Slight leukocytosis 14 however chronically elevated from previous labs. Urine negative. Electrolytes normal. Patient was treated hydroxyzine for anxiety symptoms. She is able to ambulate to the restroom with no difficulties. Patient having worsening symptoms last 2 days she is set up for a 48-hour Holter monitor. I discussed avoiding caffeine products as it can make her heart race. She will follow-up with her inventory control specialist. All questions were answered. Re-evaluation: stable Disposition discussed with patient/family/significant other: Patient Case discussed with consulting clinician: N/A This note was generated with [employer] dictation software. It may contain incorrect words, spelling, and punctuation that were not noted in checking the note before signing. Lab Data Attestation: I reviewed the patient's lab results. Labs: Laboratory Results - last 24 hr 12/02/24 12/02/24 21:09 22:10 WBC 14.3 H RBC 4.62 Hgb 14.3 Hct 40.7 MCV 88.1 MCH 31.0 MCHC 35.1 RDW Std Deviation 38.2 RDW Coeff of [place] 11.9 Plt Count 494 H MPV 9.6 Immature Gran % (Auto) 0.300 Neut % (Auto) 66.1 Lymph % (Auto) 27.4 [place] % (Auto) 5.0 Eos % (Auto) 0.6 Baso % (Auto) 0.6 Absolute Neuts (auto) 9.5 H Absolute Lymphs (auto) 3.93 Nucleated RBC % 0 D-Dimer Quant (PE/DVT) < 0.27 L Sodium 136 Potassium 3.7 Chloride 101 Carbon Dioxide 20.6 L Anion Gap 14 BUN 10 Creatinine 0.89 Estim Creat Clear Calc 150.27 Est GFR (MDRD) Non-Af 92 BUN/Creatinine Ratio 11.6 Glucose 199 H Calcium 8.7 HCG, Quant < 1 Urine Color Straw Urine Clarity Clear Urine pH 6.0 Ur Specific Harris 1.020 Urine Protein 15 H Urine Glucose (UA) Normal Urine Ketones Negative Urine Occult Blood Negative Urine Nitrite Negative Urine Bilirubin Negative Urine Urobilinogen Normal Ur Leukocyte Esterase Negative Urine RBC 0-5 SEEN Urine WBC 0-5 SEEN Ur Squamous Epith Cells 0-5 SEEN Urine Bacteria 0 SEEN Urine Mucus 0 SEEN Discharge Plan Triage Chief Complaint: Palpitations ED Provider: Mike Feldman Dx/Rx/DC Orders Clinical Impression: Palpitations, Weakness Instructions: ED Palpitations Prescriptions: No Action methylphenidate HCl [Ritalin] 20 MG tablet 20 mg PO DAILY Patient Comments: PT STATES SHE DOES NOT ALWAYS TAKE THIS DAILY dextroamphetamine-amphetamine [Adderall] 30 MG tablet 30 mg PO DAILY Patient Comments: PT STATES SHE DOES NOT ALWAYS TAKE THIS DAILY dextroamphetamine-amphetamine 30 mg capsule,extended release 24hr 1 cap PO norethindrone (contraceptive) [Deblitane] 0.35 mg tablet 0.35 mg PO DAILY Trulicity 1.5 mg/0.5 mL pen injector 1.5 mg subcut QWEEK lorazepam [Ativan] 1 mg tablet 1 mg PO TID PRN (Reason: anxiety) Qty: 10 0RF medroxyprogesterone 10 mg tablet 10 mg PO DAILY PNV cmb#95-ferrous fumarate-FA [] 28 mg iron- 800 mcg tablet 1 tab PO DAILY Primary Care Provider: Marlena Elaine Referrals: Marlena Elaine MD [Primary Care Provider] - 3-5 Days Activity Restrictions/Additional Instructions: EKG is normal labs including D-dimer normal. Urine negative. You are set up with 48-hour Holter monitor. Avoid caffeine products. Follow-up with your cardiology team. Print Language: Malawian Disposition Disposition: Home, Self Care Discharge Date/Time: 12/02/24 23:43
[2024-12-02 21:18] LABS: Absolute Lymphocyte Count 3.93 X10^3/uL (0.83-4.51); Absolute Neutrophil Count 9.5 X10^3/uL (2.0-7.7); Basophil# 0.09 X10^3/uL; Basophil% 0.6 % (0-1); Eosinophil# 0.08 X10^3/uL; Eosinophils% 0.6 % (0-5); Hematocrit 40.7 % (37-47); Hemoglobin 14.3 g/dL (12.0-15.0); Lymphocyte # 3.93 X10^3/ul (0.83-4.51); Lymphocyte % 27.4 % (19-41); Mean Corp Hgb Conc 35.1 g/dL (32-36); Mean Corpuscular Volume 88.1 fL (81-99); Mean Platelet Vol. 9.6 fl (6.2-12.0); Monocyte# 0.71 X10^3/uL; NRBC Flagged by Analyzer 0 % (0-5); Neutrophil # 9.46 X10^3/uL (2.7-7.7); Neutrophil % 66.1 % (47-70); Platelet Count 494 K/mm3 (150-450); RBC Distribution Width CV 11.9 % (11.6-14.6); RBC Distribution Width SD 38.2 fl (35.1-43.9); Red Blood Count 4.62 M/mm3 (4.2-5.4); White Blood Count 14.3 K/mm3 (4.4-11.0)
[2024-12-02] MEDS: 0.9% Normal Saline (500mL Bag) 500 ML 999 ML IV (21:18)
[2024-12-02] MEDS: Ondansetron 4 MG/2 ML Vial IV (21:19)
[2024-12-02 21:42] LABS: Anion Gap 14 (5-15); BUN 10 mg/dL (4-19); BUN/Creat Ratio 11.6 RATIO (10-20); Calcium,Total 8.7 mg/dL (7.6-11.0); Carbon Dioxide 20.6 mmol/L (21.0-32.0); Chloride 101 mmol/L (98-108); Creatinine, Serum 0.89 mg/dL (0.70-1.20); EST Glomerular Filtration Rate 92 (>60); Estimated Creatinine Clearance 150.27 ml/min (50-250); Glucose 199 mg/dL (70-99); Potassium 3.7 mmol/L (3.3-5.1); Sodium Level 136 mmol/L (133-145)
[2024-12-02 21:47] VITALS: BP 130/88; PULSE 103; RESP 15; O2SAT 100
[2024-12-02 21:48] LABS: hCG Titer Quant., Serum < 1 mIU/mL (<9 non-preg)
[2024-12-02 21:50] LABS: D-Dimer Quantitative (DVT/PE) < 0.27 FEU/ug/m (0.27-0.49)
[2024-12-02 22:00] VITALS: BP 138/92; PULSE 99; RESP 24; O2SAT 100
[2024-12-02 22:19] LABS: Bacteria 0 SEEN /hpf (None Seen); Mucous, Urine 0 SEEN /hpf (<or=2+)
[2024-12-02 22:21] LABS: Color, Urine Straw (Yellow); Glucose, Dipstick Normal (Normal); Ketone-Dipstick Negative (Negative); Leukocyte Esterase-Dipstick Negative /ul (Negative); Nitrite-Dipstick Negative (Negative); Occult Blood-Urine Negative /ul (Negative); Protein-Dipstick 15 mg/dl (Negative); Urine Bilirubin Dipstick Negative (Negative); Urine Clarity Clear (Clear); Urine Urobilinogen Normal (Normal)
[2024-12-02] MEDS: hydrOXYzine PAM 25 MG Capsule 50 MG PO (22:22)
[2024-12-02 23:00] VITALS: BP 139/89; PULSE 99; RESP 22; O2SAT 96
[2024-12-02 23:12] LABS: Red Blood Cells-Urine 0-5 SEEN /hpf (0-5); Squamous Epithelial Cells - UA 0-5 SEEN /hpf (5-10); White Blood Cells 0-5 SEEN /hpf (0-5)
[2024-12-02 23:42] VITALS: BP 135/79; PULSE 95; RESP 16; TEMP 36.6; O2SAT 97
== END 2024-12-02 23:43 | disposition home or self-care (01) ==
PROVIDERS: Emergency Provider Emergency Medicine; PCP Internal Medicine; Visit Provider Emergency Medicine
DX: R00.2 Palpitations (principal); R53.1 Weakness; F17.200 Nicotine dependence, unspecified, uncomplicated
CPT/HCPCS: 80048; 81001; 84702; 85025; 85379; 93005; 93225; 93226; 96361; 96374; 96376; 99284; J2405

== ENCOUNTER → 2024-12-02 | Outpatient (CLI) | payer MEDICAID, SELFPAY ==
--- OUTSIDE RECORDS SUMMARY | 2024-12-02 23:11 | XMS RPT_ITS | CCD ---
Author Organization [facility] Care Team Providers Care Medical Laboratory Technologist Name Role Phone JESSICA NOGUERA Unavailable Unavailable IMCA Unavailable Unavailable JESSICA NOGUERA Unavailable Unavailable IMCA Unavailable Unavailable GERRI BERNAL Attending Unavailable RUSS CHESTER Attending Unavailable GERRI BERNAL Referring Unavailable GERRI BERNAL Attending Unavailable NATO VALDEZ Attending Unavailable Antonio Smalls MD Primary Care Provider Antonio Smalls MD Primary Care Provider Antonio Smalls MD Primary Care Provider Zuleika Perez PA-C Unavailable Carlie Arreguin MD Primary Care Provider Kate Silva MD Primary Care Provider PROVIDER, UNKNOWN Referring Unavailable KATE SILVA Primary Care Unavailable HAILEY JETT Referring Unavailable CARLIE ARREGUIN Primary Care Unavailable Eliz MEDRANO, Gopal Unavailable Zuleika Avalos PA-C Unavailable Antonio Smalls MD Primary Care Provider Kate Silva MD Primary Care Provider RASTA DUMONT Attending Unavailab RASTA Ramirez Admitting Unavailab KATE Shah Primary Care Unavailable Antonio Smalls MD Primary Care Provider Alfonso SACK LIFTER.CARBON ROD INSERTER, Demi Unavailable Darrick SACK LIFTER.ELECTRIC STOVE MECHANIC, Sher Unavailable Darrick SACK LIFTER.ELECTRIC STOVE MECHANIC, Sher Unavailable Darrick SACK LIFTER.MERLIN, Sher Unavailable Chele MEDRANO, Dr. Kate Chavez Primary Care Provider Dr. Shiv Roper DO Emergency Provider Dr. Shiv Roper DO Attending Provider Francia GREGORY, Dr. Mckeon Emergency Provider DR KATE SILVA MD Primary Care Unavailable GISELLE TELLES DO Attending Unavailable Francia GREGORY, Dr. Mckeon Attending Provider Pérez Ren MD Emergency Provider UngTanna freedmanus Attending Unavailable Pelonur, Tannaus Referring Unavailable Talampas, Kate D Primary Care Unavailable Talampas, Kate D Primary Care Unavailable Pérez Ren Attending Unavailable Talampas, Kate D Primary Care Unavailable Shiv Roper Attending Unavailable Talampas, Kate D Primary Care Unavailable Mike Feldman Attending Unavailable Talampas, Kate D Primary Care Unavailable ReodicaPérez Attending Unavailable TALAMPAS, KATE D Primary Care Unavailable SANTI MCALLISTER Attending Unavailable TALAMPAS, KATE D Primary Care Unavailable TALAMPAS, KATE D Attending Unavailable TALAMPAS, KATE D Primary Care Unavailable TALAMPAS, KATE D Primary Care Unavailable TALAMPAS, KATE D Referring Unavailable TALAMPAS, KATE D Primary Care Unavailable AGATA, PAT Attending Unavailable TALAMPAS, KATE D Primary Care Unavailable TALAMPAS, KATE D Primary Care Unavailable REBECA BEASLEY Attending Unavailable TALAMPAS, KATE D Primary Care Unavailable SHER HOLLINGSWORTH Attending Unavailable TALAMPAS, KATE D Primary Care Unavailable TALAMPAS, KATE D Referring Unavailable TALAMPAS, KATE D Primary Care Unavailable SELF Referring Unavailable TALAMPAS, KATE D Attending Unavailable TALAMPAS, KATE D Primary Care Unavailable AGATA, PAT Referring Unavailable AGATA, PAT Attending Unavailable TALAMPAS, KATE D Primary Care Unavailable AGATA, PAT Referring Unavailable GOPAL YANEZ Attending Unavailable TALAMPAS, KATE D Primary Care Unavailable SELF Referring Unavailable TALAMPAS, KATE D Attending Unavailable TALAMPAS, KATE D Primary Care Unavailable TALAMPAS, KATE D Primary Care Unavailable TALAMPAS, KATE D Referring Unavailable ESTRELLITA KUMAR Attending Unavailable TALAMPAS, KATE D Primary Care Unavailable DARRICKSHER Attending Unavailable TALAMPAS, KATE D Primary Care Unavailable DARRICK, SHER Referring Unavailable TALAMPAS, KATE D Primary Care Unavailable DARRICK, SHER Attending Unavailable TALAMPAS, KATE D Primary Care Unavailable TALAMPAS, KATE D Referring Unavailable DARRICK, SHER Attending Unavailable TALAMPAS, KATE D Primary Care Unavailable MOOMAW, DUSTY Referring Unavailable TALAMPAS, KATE D Primary Care Unavailable AGATA, PAT Attending Unavailable TALAMPAS, KATE D Primary Care Unavailable TALAMPAS, KATE D Primary Care Unavailable LARRY JOSEPH Referring Unavailable TALAMPAS, KATE D Primary Care Unavailable ESTRELLITA MOLINA Referring Unavailable TALAMPAS, KATE D Primary Care Unavailable AGATA, PAT Referring Unavailable TALAMPAS, KATE D Primary Care Unavailable AGATA, PAT Referring Unavailable TALAMPAS, KATE D Primary Care Unavailable DARRICK, SHER Attending Unavailable TALAMPAS, KATE D Primary Care Unavailable MOOMAW, DUSTY Referring Unavailable GERARDO CROWE Attending Unavailable TALAMPAS, KATE D Primary Care Unavailable DARRICK, SHER Attending Unavailable TALAMPAS, KATE D Primary Care Unavailable AGATA, PAT Attending Unavailable TALAMPAS, KATE D Primary Care Unavailable DARRICK, SHER Attending Unavailable TALAMPAS, KATE D Primary Care Unavailable TALAMPAS, KATE D Primary Care Unavailable Alfonso HARLAN.CARBON ROD INSERTER, Demi Unavailable [phone] Medications Current Medications Medication Drug Class(es) Dates Sig (Normalized) Sig (Original) [id number] 200 actuat albuterol 0.09 mg/actuat metered dose inhaler (9 sources) beta2-Adrenergic Agonist Start: 10-20-2024 take 2 puff(s) by inhalation every four hours as needed for wheezing albuterol HFA (PROVENTIL HFA, VENTOLIN HFA) 90 mcg/actuation inhaler Indications: Acute bronchitis, unspecified organism Inhale 2 puffs as instructed every 4 hours as needed for wheezing/shortnes s of breath. 1 each 10/20/2024 Active amoxicillin 875 mg oral tablet (7 sources) Penicillin-class Antibacterial Start: 03-20-2023 End: 03-27-2023 take 1 tablet by mouth twice daily amoxicillin (AMOXIL) 875 mg tablet Take 1 tablet by mouth twice daily for 7 days. 14 tablet 0 03/20/2023 03/27/2023 Active Start: 12-24-2022 End: 12-31-2022 take 1 tablet by mouth twice daily amoxicillin (AMOXIL) 875 mg tablet Indications: Other acute nonsuppurative otitis media of right ear, recurrence not specified Take 1 tablet by mouth twice daily for 7 days. 14 tablet 0 12/24/2022 12/31/2022 Active Start: 06-11-2022 End: 06-25-2022 take 10 mL by mouth twice daily amoxicillin (AMOXIL) 250 mg/5 mL suspension Take 10 mL by mouth twice daily for 14 days. 280 mL 1 06/11/2022 06/25/2022 Active Comment on above: Take 10 mL by mouth twice daily for 14 days. Take 1 tablet by yoel th twice daily for 7 days. amoxicillin 875 mg / clavulanate 125 mg oral tablet (7 sources) Penicillin-class Antibacterial Start: End: take 1 tablet by mouth twice daily amoxicillin-clavula aissatou potassium (AUGMENTIN) 875-125 mg per tablet Indications: Acute recurrent sinusitis, unspecified location Take 1 tablet by mouth two times a day for 10 days. 20 tablet 08/24/2024 09/03/2024 Active Start: 10-09-2023 End: 10-16-2023 take 1 tablet by mouth twice daily amoxicillin-clavulanate potassium (AUGMENTIN) 875-125 mg per tablet Take 1 tablet by mouth two times a day for 7 days. 14 tablet 0 10/09/2023 10/16/2023 Active Start: 11-04-2022 End: 11-09-2022 take 1 tablet by mouth twice daily amoxicillin-clavulanic acid (AUGMENTIN) 875-125 mg per tablet Take 1 tablet by mouth twice daily for 5 days. 10 tablet 0 11/04/2022 11/09/2022 Active Start: 05-14-2022 End: 05-24-2022 take 1 tablet by mouth twice daily amoxicillin-clavulanic acid (AUGMENTIN) 875-125 mg per tablet Indications: Sinobronchitis Take 1 tablet by mouth twice daily for 10 days. 20 tablet 0 05/14/2022 05/24/2022 Active Comment on above: Take 1 tablet by yoel twice daily for 10 days. Take 1 tablet by yoel th twice daily for 5 days. Take 1 tablet by yoel th two times a day for 7 days. 24 hr amphetamine aspartate 7.5 mg / amphetamine sulfate 7.5 mg / dextroamphetamine saccharate 7.5 mg / dextroamphetamine sulfate 7.5 mg extended release oral capsule (20 sources) Central Nervous System Stimulant Start: 10-06-2024 Dextroamphetamine-A mphetamine 30 mg capsule,extended release 24hr Active 1 NMA PO October 06, 2024 12:00am Start: 05-18-2024 End: 01-18-2025 take 1 capsule by mouth once daily in the morning amphetamine-dextroamphetamine XR (ADDERA LL XR) 30 mg capsule Indications: Attention deficit hyperactivity disorder (ADHD), combined type Take 1 capsule by mouth every morning for 30 days. Patient should start on December 19, 2024. 30 capsule 12/19/2024 01/18/2025 Active Start: 02-14-2024 End: 05-14-2024 take 1 capsule by mouth once daily in the morning amphetamine-dextroamphetamine XR (ADDERA LL XR) 30 mg capsule Indications: Attention deficit hyperactivity disorder (ADHD), combined type Take 1 capsule by mouth every morning for 30 days. 30 capsule 04/14/2024 05/14/2024 Active Start: 01-12-2024 End: 02-11-2024 take 1 capsule by mouth once daily amphetamine-dextroamphetamine XR (ADDERA LL XR) 30 mg capsule Indications: Attention deficit hyperactivity disorder (ADHD), combined type Take 1 capsule by mouth once daily for 30 days. Do not start before January 12, 2024. 30 capsule 01/12/2024 02/09/2024 Discontinued Start: 12-28-2023 End: 12-15-2023 take 1 capsule by mouth once daily in the morning amphetamine-dextroamphetamine XR (ADDERA LL XR) 30 mg capsule Indications: Attention deficit hyperactivity disorder (ADHD), combined type Take 1 capsule by mouth every morning for 30 days. Do not start before December 28, 2023. 30 capsule 0 12/28/2023 12/15/2023 Discontinued Start: 12-28-2023 End: 12-15-2023 take 1 capsule by mouth once daily in the morning amphetamine-dextroamphetamine XR (ADDERA LL XR) 30 mg capsule Indications: Attention deficit hyperactivity disorder (ADHD), combined type Take 1 capsule by mouth every morning for 30 days. Do not start before December 28, 2023. 30 capsule 0 12/28/2023 12/15/2023 Discontinued Start: 12-15-2023 End: 01-27-2024 take 1 capsule by mouth once daily amphetamine-dextroamphetamine XR (ADDERA LL XR) 30 mg capsule Indications: Attention deficit hyperactivity disorder (ADHD), combined type Take 1 capsule by mouth once daily for 14 days. 14 capsule 12/15/2023 01/09/2024 Discontinued Start: 11-15-2023 End: 10-22-2023 take 1 capsule by mouth once daily in the morning amphetamine-dextroamphetamine XR (ADDERA LL XR) 30 mg capsule Indications: Attention deficit hyperactivity disorder (ADHD), combined type Take 1 capsule by mouth every morning for 30 days. Do not start before November 15, 2023. 30 capsule 0 11/15/2023 10/22/2023 Discontinued (Discontinued by Patient) Start: 11-15-2023 End: 10-22-2023 take 1 capsule by mouth once daily in the morning amphetamine-dextroamphetamine XR (ADDERA LL XR) 30 mg capsule Indications: Attention deficit hyperactivity disorder (ADHD), combined type Take 1 capsule by mouth every morning for 30 days. Do not start before November 15, 2023. 30 capsule 0 11/15/2023 10/22/2023 Discontinued (Discontinued by Patient) Start: 03-05-2022 End: 12-15-2023 take 1 capsule by mouth once daily in the morning amphetamine-dextroamphetamine XR (ADDERA LL XR) 30 mg capsule Indications: Attention deficit hyperactivity disorder (ADHD), combined type Take 1 capsule by mouth every morning for 30 days. 30 capsule 0 11/14/2023 12/10/2023 Discontinued Start: 03-05-2022 End: 03-12-2022 take 1 capsule by mouth once daily in the morning amphetamine-dextroamphetamine XR (ADDERA LL XR) 10 mg 24 hr capsule Indications: Attention deficit hyperactivity disorder (ADHD), combined type Take 1 capsule by mouth every morning for 30 days. 30 capsule 0 03/05/2022 03/12/2022 Discontinued Start: 09-11-2021 End: 03-01-2022 take 1 capsule by mouth once daily in the morning amphetamine-dextroamphetamine XR (ADDERA LL XR) 10 mg 24 hr capsule Indications: Attention deficit hyperactivity disorder (ADHD), combined type Take 1 capsule by mouth every morning for 30 days. 30 capsule 0 01/30/2022 Active Start: 09-11-2021 End: 03-01-2022 take 1 capsule by mouth once daily in the morning amphetamine-dextroamphetamine XR (ADDERA LL XR) 30 mg 24 hr capsule Indications: Attention deficit hyperactivity disorder (ADHD), combined type Take 1 capsule by mouth every morning for 30 days. 30 capsule 0 01/30/2022 Active Start: 04-03-2015 take 1 tablet by yoel once daily Dextroamphetamine-Amphetamine (Adderall 30 Mg Tablet) 30 MG tablet Active 30 mg PO DAILY April 03, 2015 12:00am Start: 04-03-2015 End: 12-02-2023 Dextroamphetamine-Amphetamin e (Adderall 5 Mg Tablet) 5 MG tablet Discontinued 10 mg PO DAILY April 03, 2015 12:00am December 02, 2023 2:40pm Comment on above: Take 1 capsule by mo uth every morning for 30 days. Take 1 capsule by mo uth every morning for 30 days. Do not start before November 09, 2022. Take 1 capsule by mo uth every morning for 30 days. Do not start before January 08, 2023. Take 1 capsule by mo uth every morning for 30 days. Do not start before December 09, 2022. Take 1 capsule by mo uth every morning for 30 days. Do not start before February 08, 2023. Take 1 capsule by mo uth every morning for 30 days. Do not start before March 10, 2023. Take 1 capsule by mo uth every morning for 30 days. Do not start before April 09, 2023. Take 1 capsule by mo uth every morning for 30 days. Do not start before May 15, 2023. Take 1 capsule by mo uth every morning for 30 days. Do not start before June 18, 2023. Take 1 capsule by mo uth every morning for 30 days. Do not start before July 18, 2023. Take 1 capsule by mo ut every morning for 30 days. Do not start before August 17, 2023. Take 1 capsule by mo uth every morning for 30 days. Do not start before October 16, 2023. Take 1 capsule by mo ut every morning for 30 days. Do not start before November 15, 2023. betamethasone 0.5 mg/ml / clotrimazole 10 mg/ml topical cream (3 sources) Azole Antifungal, Corticosteroid Start: 04-12-2024 End: 04-19-2024 clotrimazole-betametha sone (LOTRISONE) cream Apply 1 application to affected area two times a day for 7 days. 45 g 1 04/12/2024 04/19/2024 Active Blood-Glucose Meter (20 sources) Start: 01-27-2024 End: 01-26-2025 Blood-Glucose Meter Indications: Type 2 diabetes mellitus without complication, without long-term current use of insulin ([facility]) 1 Device as directed. For once daily testing 1 Each 01/27/2024 01/26/2025 Active Start: 01-27-2024 End: 01-26-2025 Blood-Glucose Meter Indicati ons: Type 2 diabetes mellitus without complication, without long-term current use of insulin (HCC) 1 Device as directed. For once daily testing 1 Each 0 01/27/2024 01/26/2025 Active clobetasol propionate 0.5 mg/ml topical cream (11 sources) Corticosteroid Start: 10-14-2024 clobetasol (TE MOVATE) 0.05 % cream Apply to affected area 2x/day for 2 weeks, then 1x/day for a week, than 1-3x/week for maintenance. 60 g 10/14/2024 Active CPAP/BIPAP/OTHER (20 sources) Start: 11-16-2024 End: 04-02-2052 CPAP/BIPAP/OTHER Type .CPAPSettings into a note to see current settings/supplies/DME information. 1 each 11/16/2024 04/02/2052 Active Start: 02-25-2023 End: 07-12-2050 CPAP/BIPAP/OTHER Type .CPAPS ettings into a note to see current settings/supplies/DME information. 1 Each 02/25/2023 07/12/2050 Active Start: 02-25-2023 End: 07-12-2050 CPAP/BIPAP/OTHER Type .CPAPS ettings into a note to see current settings/supplies/DME information. 1 Each 0 02/25/2023 07/12/2050 Active Start: 01-13-2023 End: 02-25-2023 CPAP/BIPAP/OTHER Type .CPAPS ettings into a note to see current settings/supplies/DME information. 1 Each 0 01/13/2023 02/25/2023 Discontinued Start: 01-13-2023 End: 05-30-2050 CPAP/BIPAP/OTHER Type .CPAPS ettings into a note to see current settings/supplies/DME information. 1 Each 0 01/13/2023 05/30/2050 Active Comment on above: Type .CPAPSettings i nto a note to see current settings/supplies/DME information. 0.5 ml dulaglutide 1.5 mg/ml auto-injector (20 sources) GLP-1 Receptor Agonist Start: dulaglutide (TRULICITY) 0.75 mg/0.5 mL pen injector Indications: Type 2 diabetes mellitus without complication, without long-term current use of insulin (HCC) , Fatty liver , Obesity, Class III, BMI 40-49.9 (morbid obesity) Inject 0.75 mg subcutaneously one time a week. 6 mL 1 11/08/2024 Active Start: 03-19-2024 End: 11-08-2024 dulaglutide (TRULICITY) 1.5 mg/0.5 mL pen injector Indications: Type 2 diabetes mellitus without complication, without long-term current use of insulin (HCC) , Fatty liver , Obesity, Class III, BMI 40-49.9 (morbid obesity) Inject 1.5 mg subcutaneously one time a week. 4 Each 2 09/13/2024 11/08/2024 Discontinued Start: 01-27-2024 End: 03-19-2024 dulaglutide (TRULICITY) 0.75 mg/0.5 mL pen injector Indications: Type 2 diabetes mellitus without complication, without long-term current use of insulin (HCC) , Fatty liver , Obesity, Class III, BMI 40-49.9 (morbid obesity) (HCC) Inject 0.75 mg subcutaneously one time a week. 4 Each 3 01/27/2024 03/19/2024 Discontinued 12 hr guaiFENesin 600 mg extended release oral tablet (1 source) Start: 05-14-2022 End: 05-24-2022 take 1 tablet by mouth twice daily guaiFENesin (MUCINEX) 600 mg 12 hr tablet Indications: Sinobronchitis Take 1 tablet by mouth twice daily for 10 days. 20 tablet 0 05/14/2022 05/24/2022 Active Comment on above: Take 1 tablet by yoel twice daily for 10 days. ketoconazole 20 mg/ml medicated shampoo (9 sources) Azole Antifungal Start: 10-20-2024 ketoconazole (NIZORAL) 2 % shampoo Indications: Dandruff , Seborrheic dermatitis Apply to affected area two times a week. 120 mL 1 10/20/2024 Active LORazepam 1 mg oral tablet (7 sources) Benzodiazepine Start: 11-02-2024 End: 12-02-2024 take 1 tablet by mouth three times daily as needed for anxiety LORazepam (ATIVAN) 1 mg tablet Indications: Generalized anxiety disorder with panic attacks , Panic attacks Take 1 tablet by mouth three times a day as needed for anxiety for up to 30 days. 90 tablet 11/02/2024 12/02/2024 Active Start: 10-29-2024 End: 11-02-2024 take 1 tablet by mouth every six hours as needed LORazepam (ATIVAN) 1 mg tablet Take 1 mg by mouth every 6 hours as needed. 10/29/2024 11/02/2024 Discontinued meclizine hydrochloride 25 mg oral tablet (17 sources) Antiemetic Start: 10-01-2024 take 1 tablet by mouth every eight hours as needed meclizine (ANTIVERT) 25 mg tab Take 1 tablet by mouth three times a day as needed (for dizziness.vertigo.). 30 tablet 1 10/01/2024 Active medroxyPROGESTERone acetate 10 mg oral tablet (20 sources) Progestin Start: 09-11-2023 End: 01-26-2024 take 1 tablet by mouth once daily Medroxyprogesterone 10 mg tablet Active 10 mg PO DAILY December 02, 2023 12:00am Start: 03-29-2022 End: 06-06-2023 take 1 tablet by mouth once daily medroxyPROGESTERone (PROVERA) 10 mg tablet Take 1 tablet by mouth once daily. for the 07-09 of each month 10 tablet 11 03/29/2022 06/06/2023 Discontinued Comment on above: Take 1 tablet by yoel th once daily. for the 07-09 of each month Take 1 tablet by yoel th once daily. methylphenidate hydrochloride 20 mg oral tablet (20 sources) Central Nervous System Stimulant Start: 05-18-20 End: 01-19-20 take 1 tablet by mouth every 30 days as needed methylphenidate (RITALIN) 20 mg tablet Indications: Attention deficit hyperactivity disorder (ADHD), combined type Take 1 tablet by mouth as needed for up to 30 days. Take at approx. 3-4 pm. Patient should start on December 19, 2024. 30 tablet 12/19/2024 01/18/2025 Active Start: 12-14-2023 End: 05-14-2024 take 1 tablet by mouth every 30 days as needed, then take 3-4 tablets by mouth in the evening as needed methylphenidate (RITALIN) 20 mg tablet Indications: Attention deficit hyperactivity disorder (ADHD), combined type Take 1 tablet by mouth as needed for up to 30 days. Take at approx. 3-4 pm. 30 tablet 04/14/2024 05/14/2024 Active Start: 11-15-2023 End: 10-22-2023 take 1 tablet by mouth every 30 days as needed methylphenidate (RITALIN) 20 mg tablet Indications: Attention deficit hyperactivity disorder (ADHD), combined type Take 1 tablet by mouth as needed for up to 30 days. Take at approx. 3-4 pm. Do not start before November 15, 2023. 30 tablet 0 11/15/2023 10/22/2023 Discontinued (Discontinued by Patient) Start: 11-15-2023 End: 10-22-2023 take 1 tablet by mouth every 30 days as needed methylphenidate (RITALIN) 20 mg tablet Indications: Attention deficit hyperactivity disorder (ADHD), combined type Take 1 tablet by mouth as needed for up to 30 days. Take at approx. 3-4 pm. Do not start before November 15, 2023. 30 tablet 0 11/15/2023 10/22/2023 Discontinued (Discontinued by Patient) Start: 03-05-2022 End: 12-15-2023 take 1 tablet by mouth every 30 days as needed, then take 3-4 tablets by mouth in the evening as needed methylphenidate (RITALIN) 20 mg tablet Indications: Attention deficit hyperactivity disorder (ADHD), combined type Take 1 tablet by mouth as needed for up to 30 days. Take at approx. 3-4 pm. 30 tablet 0 11/14/2023 12/10/2023 Discontinued Start: 09-11-2021 End: 03-01-2022 take 1 tablet by mouth every 30 days as needed, then take 3-4 tablets by mouth in the evening as needed methylphenidate (RITALIN) 20 mg tablet Indications: Attention deficit hyperactivity disorder (ADHD), combined type Take 1 tablet by mouth as needed for up to 30 days. Take at approx. 3-4 pm. 30 tablet 0 01/30/2022 Active Start: 04-03-2015 take 1 tablet by yoel th once daily Methylphenidate Hcl (Ritalin) 20 MG tablet Active 20 mg PO DAILY April 03, 2015 12:00am Comment on above: Take 1 tablet by yoel th as needed for up to 30 days. Take at approx. 3-4 pm. Take 1 tablet by yoel th as needed for up to 30 days. Take at approx. 3-4 pm. Do not start before November 09, 2022. Take 1 tablet by yoel th as needed for up to 30 days. Take at approx. 3-4 pm. Do not start before January 08, 2023. Take 1 tablet by yoel th as needed for up to 30 days. Take at approx. 3-4 pm. Do not start before December 09, 2022. Take 1 tablet by yoel th as needed for up to 30 days. Take at approx. 3-4 pm. Do not start before February 08, 2023. Take 1 tablet by yoel th as needed for up to 30 days. Take at approx. 3-4 pm. Do not start before March 10, 2023. Take 1 tablet by yoel th as needed for up to 30 days. Take at approx. 3-4 pm. Do not start before April 09, 2023. Take 1 tablet by yoel th as needed for up to 30 days. Take at approx. 3-4 pm. Do not start before May 15, 2023. Take 1 tablet by yoel th as needed for up to 30 days. Take at approx. 3-4 pm. Do not start before June 18, 2023. Take 1 tablet by yoel as needed for up to 30 days. Take at approx. 3-4 pm. Do not start before July 18, 2023. Take 1 tablet by yoel as needed for up to 30 days. Take at approx. 3-4 pm. Do not start before August 17, 2023. Take 1 tablet by yoel as needed for up to 30 days. Take at approx. 3-4 pm. Do not start before October 16, 2023. Take 1 tablet by yoel as needed for up to 30 days. Take at approx. 3-4 pm. Do not start before November 15, 2023. metroNIDAZOLE 500 mg oral tablet (1 source) Nitroimidazole Antimicrobial Start: End: take 1 tablet by mouth twice daily metroNIDAZOLE (FLAGYL) 500 mg tablet Take 1 tablet by mouth twice daily for 7 days. 14 tablet 0 07/18/2022 07/25/2022 Active Comment on above: Take 1 tablet by yoel twice daily for 7 days. nitrofurantoin, macrocrystals 25 mg / nitrofurantoin, monohydrate 75 mg oral capsule (1 source) Nitrofuran Antibacterial Start: End: take 1 capsule by mouth twice daily at mealtime nitrofurantoin monohydrate and macrocrystal (MACROBID) 100 mg capsule Indications: Urinary tract infection without hematuria, site unspecified Take 1 capsule by mouth twice daily with meals for 7 days. 14 capsule 0 03/01/2022 03/08/2022 Active Comment on above: Take 1 capsule by [facility] twice daily with meals for 7 days. norethindrone 0.35 mg oral tablet (20 sources) Start: 024 End: take 1 tablet by mouth once daily Norethindrone, Contraceptive, (SELMA) 0.35 mg tablet Take 1 tablet by mouth once daily. 84 tablet 3 01/26/2024 12/27/2024 Active omeprazole 20 mg delayed release oral capsule (20 sources) Proton Pump Inhibitor Start: 022 End: 01-19-2 025 take 1 capsule by mouth once daily omeprazole (PRILOSEC) 20 mg capsule Indications: Acid indigestion Take 1 capsule by mouth once daily. On empty stomach at least 30 minutes before eating. 90 capsule 1 07/19/2024 Active Start: 05-07-2022 End: 06-06-2022 take 1 capsule by mouth once daily omeprazole (PRILOSEC) 20 mg capsule Take 1 capsule by mouth once daily. 30 capsule 2 05/07/2022 Active Comment on above: Take 1 capsule by [facility] [facility] once daily. ondansetron 4 mg disintegrating oral tablet (20 sources) Serotonin-3 Receptor Antagonist Start: 024 End: 025 take 1 tablet by mouth every eight hours as needed for nausea ondansetron orally disintegrating (ZOFRAN ODT) 4 mg disintegrating tablet Indications: Migraine without status migrainosus, not intractable, unspecified migraine type Take 1 tablet by mouth every 8 hours as needed for nausea/vomiting. 30 tablet 3 11/08/2024 Active Pnv Cmb#95-Ferrous Fumarate-Fa [ Vit No.95-Ferrous Fumarate 28 Mg-Folic Acid 800 Mcg Tablet] ( Vit No.95-Ferrous Fumarate 28 Mg-Folic ) 28 mg iron- 800 mcg tablet (3 sources) Start: 024 Pnv Cmb#95-Ferrous Fumarate-Fa [ Vit No.95-Ferrous Fumarate 28 Mg-Folic Acid 800 Mcg Tablet] ( Vit No.95-Ferrous Fumarate 28 Mg-Folic ) 28 mg iron- 800 mcg tablet Active 1 {tbl} PO DAILY December 02, 2023 12:00am propranolol hydrochloride 20 mg oral tablet (6 sources) beta-Adrenergic Ifrah Start: 025 take 1 tablet by mouth three times daily as needed propranolol (INDERAL) 20 mg tablet Indications: Generalized anxiety disorder with panic attacks , Panic attacks , Palpitations Take 1 tablet by mouth three times a day as needed (for heart rate over 100). 90 tablet 2 11/02/2024 Active QUEtiapine 25 mg oral tablet (6 sources) Atypical Antipsychotic Start: 025 take 1-2 tablets by mouth once daily at bedtime QUEtiapine (SEROQUEL) 25 mg tablet Indications: Generalized anxiety disorder with panic attacks , Panic attacks Take 1-2 tablets by mouth daily at bedtime. 60 tablet 2 11/02/2024 Active rizatriptan 10 mg oral tablet (20 sources) Serotonin-1b and Serotonin-1d Receptor Agonist Start: 024 End: take 1 tablet by mouth every two hours as needed for headache rizatriptan (MAXALT) 10 mg tablet Indications: Migraine without status migrainosus, not intractable, unspecified migraine type Take 1 tablet by mouth as needed for migraine headache (see administration instructions). May repeat dose after 2 hours if needed. Maximum daily dose is 30 mg per day. 18 tablet 3 10/01/2024 Active triamcinolone acetonide 1 mg/ml topical cream (20 sources) Corticosteroid Start: triamcinolone acetonide (KENALOG) 0.1 % cream Apply to affected area two times a day as needed. May use for up to 14 days per rash 30 g 08/09/2024 Active venlafaxine 37.5 mg oral tablet (1 source) Serotonin and Norepinephrine Reuptake Inhibitor Start: take 37.5 mg by mouth once daily Venlafaxine Active 37.5 MG PO DAILY April 03, 2015 12:00am zaleplon 5 mg oral capsule (1 source) gamma-Aminobutyric Acid A Receptor Agonist Start: 023 End: 023 take 1 capsule by mouth once daily at bedtime zaleplon (SONATA) 5 mg capsule Indications: ESTEBAN (obstructive sleep apnea) Take 1 capsule by mouth daily at bedtime for 2 doses. 2 capsule 0 11/08/2022 11/10/2022 Active Comment on above: Take 1 capsule by [facility] daily at bedtime for 2 doses. Completed/Discontinued Medications Medication Drug Class(es) Dates Sig (Normalized) Sig (Original) ARIPiprazole 2 mg oral tablet (10 sources) Atypical Antipsychotic Start: 04-10-2020 End: 03-12-2022 take 1 tablet by mouth once daily ARIPiprazole (ABILIFY) 2 mg tablet Take 2 mg by mouth once daily. 0 04/10/2020 03/12/2022 Discontinued Comment on above: Take 2 mg by mouth o nce daily. benzonatate 100 mg oral capsule (20 sources) Non-narcotic Antitussive Start: 10-20-2024 End: 11-08-2024 take 1 capsule by mouth every eight hours as needed benzonatate (TESSALON PERLE) 100 mg capsule Take 1 capsule by mouth three times a day as needed for cough. 30 capsule 10/20/2024 11/08/2024 Discontinued Start: 08-24-2024 End: 08-31-2024 take 1 capsule by mouth three times daily as needed for cough benzonatate (TESSALON PERLE) 100 mg capsule Indications: Acute recurrent sinusitis, unspecified location Take 1 capsule by mouth three times a day as needed for cough for up to 7 days. 21 capsule 08/24/2024 08/31/2024 Active Start: 03-20-2023 End: 04-22-2023 take 2 capsules by mouth every eight hours as needed benzonatate (TESSALON PERLE) 100 mg capsule Take 2 capsules by mouth three times daily as needed. 30 capsule 0 03/20/2023 04/22/2023 Discontinued Start: 07-09-2022 End: 08-22-2022 take 2 capsules by mouth every eight hours as needed benzonatate (TESSALON PERLES) 100 mg capsule Take 2 capsules by mouth three times daily as needed. 30 capsule 0 07/09/2022 08/22/2022 Discontinued Start: 05-14-2022 End: 05-24-2022 take 2 capsules by mouth three times daily as needed benzonatate (TESSALON PERLE) 100 mg capsule Indications: Sinobronchitis Take 2 capsules by mouth three times daily as needed for up to 10 days. 60 capsule 0 05/14/2022 05/24/2022 Active Comment on above: Take 2 capsules by m outh three times daily as needed for up to 10 days. Take 2 capsules by m outh three times daily as needed. 24 hr buPROPion hydrochloride 150 mg extended release oral tablet (20 sources) Aminoketone Start: 03-19-20 End: 10-27-19 take 1 tablet by mouth once daily buPROPion XL (WELLBUTRIN XL) 150 mg 24 hr tablet Indications: Vapes nicotine containing substance Take 1 tablet by mouth once daily. 30 tablet 3 03/19/2024 10/26/2024 Discontinued busPIRone hydrochloride 10 mg oral tablet (3 sources) Start: 10-27-19 End: 11-03-19 take 1 tablet by mouth twice daily busPIRone (BUSPAR) 10 mg tablet Indications: Generalized anxiety disorder with panic attacks Take 1 tablet by mouth two times a day. 60 tablet 2 10/26/2024 11/02/2024 Discontinued cetirizine hydrochloride 10 mg oral tablet (5 sources) Histamine-1 Receptor Antagonist Start: 03-20-20 End: 04-22-20 take 1 tablet by mouth once daily cetirizine (ZYRTEC) 10 mg tablet Take 1 tablet by mouth once daily. 30 tablet 0 03/20/2023 04/22/2023 Discontinued Comment on above: Take 1 tablet by yoel th once daily. ciprofloxacin 3 mg/ml / dexamethasone 1 mg/ml otic suspension (7 sources) Corticosteroid, Quinolone Antimicrobial Start: 12-15-19 End: 12-22-19 ciprofloxacin-dexAME THasone (CIPRODEX) 0.3-0.1 % otic suspension Indications: Acute otitis externa of right ear, unspecified type Use 4 Drops in the right ear two times a day for 7 days. 7.5 mL 12/15/2023 12/22/2023 doxycycline hyclate 100 mg oral tablet (6 sources) Tetracycline-class Drug Start: 05-19-20 End: 05-26-20 take 1 tablet by mouth twice daily doxycycline (VIBRA-TABS) 100 mg tablet Take 1 tablet by mouth two times a day for 7 days. 14 tablet 05/19/2024 05/26/2024 Start: 03-02-2024 End: 03-09-2024 take 1 tablet by mouth twice daily doxycycline (VIBRA-TABS) 100 mg tablet Take 1 tablet by mouth two times a day for 7 days. 14 tablet 03/02/2024 03/09/2024 Active Start: 07-09-2022 End: 07-16-2022 take 1 tablet by mouth twice daily doxycycline (VIBRA-TABS) 100 mg tablet Take 1 tablet by mouth twice daily for 7 days. 14 tablet 0 07/09/2022 07/16/2022 Active Comment on above: Take 1 tablet by yoel th twice daily for 7 days. DULoxetine 20 mg delayed release oral capsule (3 sources) Serotonin and Norepinephrine Reuptake Inhibitor Start: 04 End: take 1 capsule by mouth once daily DULoxetine (CYMBALTA) 20 mg capsule Indications: Generalized anxiety disorder with panic attacks Take 1 capsule by mouth once daily. 30 capsule 2 10/26/2024 11/02/2024 Discontinued ergocalciferol 1.25 mg oral capsule (20 sources) Provitamin D2 Compound Start: End: take 1 capsule by mouth every week ergocalciferol 50,000 unit capsule (VITAMIN D2, DRISDOL) Indications: Vitamin D deficiency Take 1 capsule by mouth one time a week. 8 capsule 0 08/09/2022 04/22/2023 Discontinued Comment on above: Take 1 capsule by mo [facility] one time a week. fluconazole 150 mg oral tablet (20 sources) Azole Antifungal Start: End: fluconazole (DIFLUCAN) 150 mg tablet Take 1 tablet today, then a 2nd tablet in 72 hours, and 3rd tablet in another 72 hours. 3 tablet 08/23/2024 10/26/2024 Discontinued Start: 05-31-2024 fluconazole (D IFLUCAN) 150 mg tablet Take 1 tablet today, then a 2nd tablet in 72 hours, and 3rd tablet in another 72 hours. 3 tablet 05/31/2024 Active Start: 04-13-2024 End: 04-30-2024 fluconazole (DIFLUCAN) 150 m g tablet Take 1 tablet today, then a 2nd tablet in 72 hours, and 3rd tablet in another 72 hours. 3 tablet 04/13/2024 04/30/2024 Discontinued Start: 03-15-2024 End: 03-19-2024 fluconazole (DIFLUCAN) 150 m g tablet Indications: Vaginal yeast infection Take 1 tablet today, then a 2nd tablet in 72 hours, and 3rd tablet in another 72 hours. 3 tablet 03/15/2024 03/19/2024 Discontinued Start: 03-04-2024 fluconazole (D IFLUCAN) 150 mg tablet Indications: Vaginal yeast infection Take 1 tablet today, then a 2nd tablet in 72 hours, and 3rd tablet in another 72 hours. 3 tablet 03/04/2024 Active Start: 12-15-2023 End: 12-16-2023 take 1 tablet by mouth once fluconazole (DIFLUCAN) 150 mg tablet Take 1 tablet by mouth one time only for 1 dose. 1 tablet 0 12/16/2023 12/16/2023 Start: 11-17-2023 End: 11-17-2023 take 1 tablet by mouth once fluconazole (DIFLUCAN) 150 mg tablet Take 1 tablet by mouth one time only for 1 dose. 1 tablet 3 11/17/2023 11/17/2023 Start: 10-30-2023 End: 10-30-2023 take 1 tablet by mouth once fluconazole (DIFLUCAN) 150 mg tablet Take 1 tablet by mouth one time only for 1 dose. 1 tablet 0 10/30/2023 10/30/2023 Start: 09-11-2023 End: 10-30-2023 fluconazole (DIFLUCAN) 150 m g tablet Take 1 tablet today, then a 2nd tablet in 72 hours, and 3rd tablet in another 72 hours. 3 tablet 0 09/11/2023 10/30/2023 Discontinued Start: 09-11-2023 End: 09-16-2023 take 1 tablet by mouth every week fluconazole (DIFLUCAN) 150 mg tablet Take 1 tablet by mouth one time a week. 4 tablet 6 09/11/2023 09/16/2023 Discontinued Start: 08-13-2023 End: 08-13-2023 take 1 tablet by mouth once fluconazole (DIFLUCAN) 150 mg tablet Take 1 tablet by mouth one time only for 1 dose. 1 tablet 0 08/13/2023 08/13/2023 Active Start: 05-15-2023 End: 05-15-2023 fluconazole (DIFLUCAN) 150 m g tablet Take 1 tablet by mouth one time only for 1 dose. Repeat in 3 days as needed. 2 tablet 0 05/15/2023 05/15/2023 Active Start: 04-09-2023 End: 04-22-2023 take 1 tablet by mouth once fluconazole (DIFLUCAN) 150 mg tablet Take 1 tablet by mouth one time only for 1 dose. 1 tablet 0 04/09/2023 04/22/2023 Discontinued Start: 01-10-2023 End: 01-10-2023 fluconazole (DIFLUCAN) 150 m g tablet Take 1 tablet by mouth one time only for 1 dose. Repeat in 3 days as needed. 2 tablet 0 01/10/2023 01/10/2023 Active Start: 11-20-2022 End: 01-10-2023 fluconazole (DIFLUCAN) 150 m g tablet Indications: Yeimy infection Take 1 tablet by mouth every 72 hours. Repeat in 3 days as needed. 3 tablet 0 11/20/2022 01/10/2023 Discontinued Start: 07-18-2022 End: 07-19-2022 take 1 tablet by mouth once daily fluconazole (DIFLUCAN) 150 mg tablet Take 1 tablet by mouth once daily for 1 day. 1 tablet 0 07/18/2022 07/19/2022 Active Comment on above: Take 1 tablet by yoel th once daily for 1 day. Take 1 tablet by yoel th every 72 hours. Repeat in 3 days as needed. Take 1 tablet by yoel th one time only for 1 dose. Repeat in 3 days as needed. Take 1 tablet by yoel th one time only for 1 dose. Take 1 tablet today, then a 2nd tablet in 72 hours, and 3rd tablet in another 72 hours. Take 1 tablet by yoel th one time a week. fluticasone propionate 0.05 mg/actuat metered dose nasal spray (12 sources) Corticosteroid Start: 3 End: 3 take 2 spray(s) by mouth once daily fluticasone (FLONASE) 50 mcg/actuation nasal spray Use 2 Sprays in each nostril once daily. Rinse mouth after use. 9.9 mL 0 03/20/2023 04/22/2023 Discontinued Start: 07-09-2022 End: 08-22-2022 take 2 spray(s) by mouth once daily fluticasone (FLONASE) 50 mcg/actuation nasal spray Use 2 Sprays in each nostril once daily. Rinse mouth after use. 1 Each 0 07/09/2022 08/22/2022 Discontinued Comment on above: Use 2 Sprays in each nostril once daily. Rinse mouth after use. ibrexafungerp (BREXAFEMME) 150 mg tablet (6 sources) Start: 4 End: 4 take 2 tablets by mouth every twelve hours ibrexafungerp (BREXAFEMME) 150 mg tablet Indications: Chronic infection , Vaginal yeast infection Take 2 tablets (300 mg) by mouth every 12 hours. 4 tablet 05/10/2024 05/31/2024 Discontinued (Cost of medication) Start: 05-10-2024 take 2 tablets by [facility] every twelve hours ibrexafungerp (BREXAFEMME) 150 mg tablet Indications: Chronic infection , Vaginal yeast infection Take 2 tablets (300 mg) by mouth every 12 hours. 4 tablet 05/10/2024 Active Inhalational Spacing Device (1 source) Start: 10-20-2024 End: 10-20-2024 Inhalational Spacing Device Indications: Acute bronchitis, unspecified organism 1 device one time only for 1 dose. 1 each 10/20/2024 10/20/2024 miconazole nitrate 20 mg/ml vaginal cream (7 sources) Azole Antifungal Start: 04-13-2024 End: 04-30-2024 miconazole (MONISTAT 7) 2 % vaginal cream Use 1 Applicator vaginally daily at bedtime. 45 g 04/13/2024 04/30/2024 Discontinued Start: 02-18-2024 End: 03-04-2024 miconazole (MONISTAT 7) 2 % vaginal cream Use 1 Applicator vaginally daily at bedtime. 45 g 02/18/2024 03/04/2024 Discontinued nicotine 2 mg chewing gum (4 sources) Cholinergic Nicotinic Agonist Start: 09-16-2023 End: 10-22-2023 take 1 dose by mouth every two hours as needed nicotine polacrilex (NICORETTE) 2 mg gum Indications: Vaping nicotine dependence, non-tobacco product Take 1 Each by mouth every 2 hours as needed. 100 Each 1 09/16/2023 10/22/2023 Discontinued (Discontinued by Patient) Comment on above: Take 1 Each by mouth every 2 hours as needed. PARoxetine hydrochloride 20 mg oral tablet (20 sources) Serotonin Reuptake Inhibitor Start: 06-06-2023 End: 03-19-2024 take 1 tablet by mouth once daily PARoxetine (PAXIL) 20 mg tablet Indications: Recurrent major depressive disorder, in partial remission (HCC) Take 1 tablet by mouth once daily. 30 tablet 5 09/16/2023 03/19/2024 Discontinued End: 03-12-2022 PAROXETINE HCL (PAXIL ORAL) Take by mouth. 0 03/12/2022 Discontinued PAROXETINE HCL ( PAXIL ORAL) Take by mouth. 0 Active Comment on above: Take by mouth. Take 1 tablet by yoel th once daily. perflutren lipid microspheres 1.3 mL in NaCl (PF) 0.9% 10 mL injection (DEFINITY) (20 sources) Start: 09-30-2022 End: 12-15-2023 perflutren lipid microspheres 1.3 mL in NaCl (PF) 0.9% 10 mL injection (DEFINITY) Start: 09-30-2022 End: 2023 perflutren lipid microsphere s 1.3 mL in NaCl (PF) 0.9% 10 mL injection (DEFINITY) PNV No.40-Iron Fum-FA Cmb No.1 (PNV-SELECT) 27-1 mg tab (20 sources) Start: 05-30-2022 End: 06-06-2023 take 1 tablet by mouth once daily PNV No.40-Iron Fum-FA Cmb No.1 (PNV-SELECT) 27-1 mg tab Take 1 tablet by mouth once daily. 30 tablet 12 05/30/2022 06/06/2023 Discontinued Start: 05-30-2022 take 1 tablet by yoel th once daily PNV No.40-Iron Fum-FA Cmb No.1 (PNV-SELECT) 27-1 mg tab Take 1 tablet by mouth once daily. 30 tablet 12 05/30/2022 Suspended Start: 05-30-2022 take 1 tablet by yoel th once daily PNV No.40-Iron Fum-FA Cmb No.1 (PNV-SELECT) 27-1 mg tab Take 1 tablet by mouth once daily. 30 tablet 12 05/30/2022 Active Comment on above: Take 1 tablet by yoel th once daily. predniSONE 10 mg oral tablet (4 sources) Start: 11-04-2022 predniSONE (DELTASONE) 10 mg tablet Take 4 tabs daily for 3 days, then 2 tabs daily for 3 days, then 1 tab daily for 3 days with food. 21 tablet 0 11/04/2022 Active Comment on above: Take 4 tabs daily fo r 3 days, then 2 tabs daily for 3 days, then 1 tab daily for 3 days with food. Tjmaouoy-Qu-Zfh-Fe-FA tab (6 sources) Start: 11-17-2023 End: 12-12-2023 take 1 tablet by mouth once daily Rhdufiip-Ky-Rmb-Fe-FA tab Take 1 tablet by mouth once daily. 90 tablet 3 11/17/2023 12/12/2023 Discontinued Start: 11-17-2023 End: 11-16-2024 take 1 tablet by mouth once daily Aerhkmeu-Pk-Fpj-Fe-FA tab Take 1 tablet by mouth once daily. 90 tablet 3 11/17/2023 11/16/2024 Active 125 ml sodium chloride 9 mg/ml prefilled syringe (20 sources) Start: 09-30-2022 End: 2023 sodium chloride 0.9 % (flush) 10 mL (BD POSIFLUSH) SUMAtriptan 100 mg oral tablet (20 sources) Serotonin-1b and Serotonin-1d Receptor Agonist Start: 12-15-2023 End: 04-30-2024 SUMAtriptan (IMITREX) 100 mg tablet Indications: Migraine without status migrainosus, not intractable, unspecified migraine type Take 1 tablet (100 mg) by mouth as needed for migraine headache (see administration instructions). Take 1 by mouth at onset of migraine. May repeat after 2 hours as needed 9 tablet 5 03/05/2024 04/30/2024 Discontinued Start: 09-16-2023 End: 12-15-2023 SUMAtriptan (IMITREX) 50 mg tablet Indications: Migraine without status migrainosus, not intractable, unspecified migraine type Take 1 by mouth at onset of migraine. May repeat after 2 hours as needed 9 tablet 2 09/16/2023 12/15/2023 Discontinued Comment on above: Take 1 by mouth at o nset of migraine. May repeat after 2 hours as needed topiramate 50 mg oral tablet (20 sources) Start: 09-16-2023 End: 12-15-2023 take 1 tablet by mouth once daily topiramate (TOPAMAX) 50 mg tablet Indications: Migraine without status migrainosus, not intractable, unspecified migraine type Take 1 tablet by mouth once daily. 30 tablet 2 09/16/2023 12/15/2023 Discontinued Start: 01-28-2023 End: 09-11-2023 take 1 tablet by mouth once daily topiramate (TOPAMAX) 50 mg tablet Indications: Migraine without status migrainosus, not intractable, unspecified migraine type Take 1 tablet by mouth once daily. 30 tablet 11 01/28/2023 09/11/2023 Discontinued (Other) Start: 10-28-2022 End: 01-28-2023 take 1 tablet by mouth once daily topiramate (TOPAMAX) 25 mg tablet Indications: Migraine without status migrainosus, not intractable, unspecified migraine type Take 1 tablet by mouth once daily. 30 tablet 11 10/28/2022 01/28/2023 Discontinued Start: 03-17-2021 End: 03-12-2022 take 1 tablet by mouth twice daily topiramate (TOPAMAX) 25 mg tablet Take 1 tablet by mouth twice daily. 60 tablet 0 03/17/2021 03/12/2022 Discontinued Start: 04-03-2015 take 1 tablet by yoel th once daily Topiramate (Topamax) 25 MG tablet Active 25 MG PO DAILY April 03, 2015 12:00am Comment on above: Take 1 tablet by yoel th twice daily. Take 1 tablet by yoel th once daily. Problems Active Problems Problem Classification Problem Date Documented Da te Episodic/Chronic Acute bronchitis (2 sources) Acute bronchitis; Translations: [Acute bronchitis, unspecified] Onset: 5 10-20-2024 Episodic Allergic reactions (1 source) Eczema; Translations: [Dermatitis, unspecified] 08-09-2024 Episodic Anxiety disorders (20 sources) Anxiety; Translations: [...] disorder (ADHD), combined type] Onset: 5 Chronic Cardiac dysrhythmias (20 sources) Multiple premature ventricular complexes; Translations: [Ventricular premature depolarization] Onset: 5 08-30-2024 Chronic Cardiac dysrhythmias (5 sources) Palpitations; Translations: [Palpitations] Onset: 5 10-25-2024 Episodic Conditions associated with dizziness or vertigo (11 sources) Vertigo; Translations: [Dizziness and giddiness] Onset: 5 10-01-2024 Episodic Diabetes mellitus without complication (20 sources) Type 2 diabetes mellitus without complication; Translations: [Type 2 diabetes mellitus without complications] Onset: 4 01-27-2024 Chronic Diseases of white blood cells (9 sources) Leukocytosis; Translations: [Elevated white blood cell count, unspecified] Onset: Chronic Endometriosis (1 source) Uterine adenomyosis; Translations: [Adenomyosis] 01-27-2024 Chronic Esophageal disorders (2 sources) Gastroesophageal reflux disease; Translations: [Gastro-esophageal reflux disease without esophagitis] 10-22-2023 Chronic Genitourinary symptoms and ill-defined conditions (3 sources) Abnormal urination; Translations: [Other difficulties with micturition] Episodic Headache; including migraine (20 sources) Migraine; Translations: [Migraine, unspecified, not intractable, without status migrainosus] Onset: 6 04-22-2016 Chronic Hemorrhoids (1 source) Anal skin tag; Translations: [Residual hemorrhoidal skin tags] Episodic Immunizations and screening for infectious disease (9 sources) Contact with and (suspected) exposure to other viral communicable diseases; Translations: [Patient encounter status] Onset: 1 Episodic Inflammatory diseases of female pelvic organs (2 sources) Acute vaginitis; Translations: [Acute vaginitis] Episodic Malaise and fatigue (2 sources) Fatigue; Translations: [Chronic fatigue, unspecified] Onset: 3 Chronic Malaise and fatigue (12 sources) Malaise and fatigue; Translations: [Other malaise] Onset: 3 Episodic Menstrual disorders (11 sources) Irregular periods; Translations: [Irregular menstruation, unspecified] Onset: 4 Chronic Miscellaneous mental health disorders (20 sources) Depersonalization disorder; 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] Onset: 6 12-05-2015 Chronic Mood disorders (20 sources) Depressive disorder; Translations: [Depression] Onset: 4 06-25-2021 Chronic Mycoses (4 sources) Candidiasis of vagina; Translations: [Vaginal yeast infection] 02-18-2024 Episodic Nausea and vomiting (4 sources) Nausea; Translations: [Nausea] Episodic Neoplasms of unspecified nature or uncertain behavior (1 source) Thrombocytosis; Translations: [Thrombocytosis] Onset: 5 Chronic Neoplasms of unspecified nature or uncertain behavior (4 sources) Thrombocytosis; Translations: [Thrombocytosis] Episodic Nonspecific chest pain (7 sources) Acute chest pain; Translations: [Chest pain, unspecified] Onset: 3 Episodic Nutritional deficiencies (1 source) Vitamin D deficiency; Translations: [Vitamin D deficiency, unspecified] Chronic Other aftercare (2 sources) Patient encounter status; Translations: [Other watermelon inspector (current) drug therapy] 01-29-2024 Episodic Other aftercare (1 source) Long-term current use of drug therapy; Translations: [Other nursing home (current) drug therapy] 08-09-2024 Episodic Other circulatory disease (3 sources) Elevated blood-pressure reading without diagnosis of hypertension; Translations: [Elevated blood-pressure reading, without diagnosis of hypertension] 08-03-2023 Episodic Other congenital anomalies (20 sources) Marfan's syndrome; Translations: [Marfan's syndrome, unspecified] Onset: 6 03-05-2006 Chronic Other connective tissue disease (1 source) Disease suspected; Translations: [Other symptoms and signs involving the nervous system] Episodic Other connective tissue disease (1 source) Other symptoms and signs involving the nervous system; Translations: [Suspected sleep apnea] Onset: 3 Episodic Other connective tissue disease (3 sources) Pain in right hand; Translations: [Pain in right hand] 12-17-2023 Episodic Other connective tissue disease (1 source) Muscle pain; Translations: [Myalgia, unspecified site] 08-09-2024 Episodic Other disorders of stomach and duodenum (2 sources) Indigestion; Translations: [Functional dyspepsia] 12-28-2023 Episodic Other ear and sense organ disorders (1 source) Impacted cerumen in right ear; Translations: [Impacted cerumen, right ear] 12-15-2023 Episodic Other ear and sense organ disorders (1 source) Acute otitis externa of right ear; Translations: [Unspecified acute noninfective otitis externa, right ear] 12-15-2023 Episodic Other ear and sense organ disorders (1 source) Bilateral earache; Translations: [Otalgia, bilateral] 10-01-2024 Episodic Other eye disorders (20 sources) Subluxation of lens; Translations: [Subluxation of lens, unspecified eye] 06-25-2021 Chronic Other female genital disorders (1 source) Abnormal uterine and vaginal bleeding, unspecified; Translations: [Abnormal uterine and vaginal bleeding, unspecified] Onset: Chronic Other female genital disorders (9 sources) Vaginal discharge; Translations: [Other specified noninflammatory disorders of vagina] 01-10-2023 Episodic Other female genital disorders (2 sources) Vaginal odor; Translations: [Other specified noninflammatory disorders of vagina] 05-14-2023 Episodic Other female genital disorders (4 sources) Pruritus of vagina; Translations: [Other specified noninflammatory disorders of vagina] 08-11-2023 Episodic Other female genital disorders (1 source) Vulval irritation; Translations: [Other specified noninflammatory disorders of vulva and perineum] 09-27-2024 Episodic Other gastrointestinal disorders (5 sources) Diarrhea; Translations: [Diarrhea, unspecified] Episodic Other gastrointestinal disorders (1 source) Heartburn; Translations: [Heartburn] 01-28-2023 Episodic Other infections;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 XR) 30 mg capsule Take 1 capsule by mouth every morning for 30 days. Patient should start on November 19, 2024. amphetamine-dextroampheta mine XR (ADDERALL XR) 30 mg capsule Take 1 capsule by mouth every morning for 30 days. methylphenidate (RITALIN) 20 mg tablet Take 1 tablet by mouth as needed for up to 30 days. Take at approx. 3-4 pm. [START ON 11/19/2024] methylphenidate (RITALIN) 20 mg tablet Take 1 tablet by mouth as needed for up to 30 days. Take at approx. 3-4 pm. Patient should start on November 19, 2024. [START ON 12/19/2024] methylphenidate (RITALIN) 20 mg tablet Take 1 tablet by mouth as needed for up to 30 days. Take at approx. 3-4 pm. Patient should start on December 19, 2024. [START ON 12/19/2024] amphetamine-dextroampheta mine XR (ADDERALL XR) 30 mg capsule Take 1 capsule by mouth every morning for 30 days. Patient should start on December 19, 2024. clobetasol (TEMOVATE) 0.05 % cream Apply to affected area 2x/day for 2 weeks, then 1x/day for a week, than 1-3x/week for maintenance. meclizine (ANTIVERT) 25 mg tab Take 1 tablet by mouth three times a day as needed (for dizziness.vertigo.). rizatriptan (MAXALT) 10 mg tablet Take 1 tablet by mouth as needed for migraine headache (see administration instructions). May repeat dose after 2 hours if needed. Maximum daily dose is 30 mg per day. dul (more content not included)... Normal [facility] ESR Westergren method (Bld) [Velocity]on 10-26-2024 ESR (Bld) [Velocity] 29 mm/h High 0-20 [facility] Comment on above: Order Comment: Speci men Type: BLOOD SPECIMEN Ordering Facility: [facility] Address: [address] [place] [address] Performed By: #### V ITB6 #### [facility] CLIA [id number] [address] [place] [address] T3Free SerPl-mCncon 10-27-19 25 Free T3 [Mass/Vol] 3.4 pg/mL Normal 2.3-4.1 [facility] Comment on above: Order Comment: Speci men Type: BLOOD SPECIMEN Ordering Facility: [facility] Address: [address] [place] [address] Performed By: #### V ITB6 #### [facility] CLIA [id number] [address] [place] [address] T4 Free SerPl-mCncon 04-29-2 025 Free T4 [Mass/Vol] 1.0 ng/dL Normal 0.9-1.7 [facility] Comment on above: Order Comment: Lore buitrago Type: BLOOD SPECIMEN Ordering Facility: [facility] Address: [address] [place], [place] [id number] Performed By: #### V ITB6 #### [facility] [id number] [address] [place] [address] TSH SerPl-aCncon 10-26-2024 TSH Qn 0.844 m[IU]/L Normal 0.270-4.200 [facility] Comment on above: Order Comment: Lore buitrago Type: BLOOD SPECIMEN Ordering Facility: [facility] Address: [address] [place] [address] Result Comment: If t he patient is , TSH reference range varies by gestational period: First Trimester (weeks 9-12): 0.180-2.990 mIU/L Second Trimester: 0.110-3.980 mIU/L Third Trimester: 0.480-4.710 mIU/L Rolando Cheatham et al. A Practical Approach for the Verifications and Determination of Site- and Trimester-Specific Reference Intervals for Thyroid Function tests in . Thyroid, 2019:29:3:412-420. Wiliam E, et al. 2017 Guidelines of the [place] Thy[employer] for the Diagnosis and Management of Thyroid Disease during and the . Thyroid, 2017:27:3:315-389. Performed By: #### V ITB6 #### [facility] [id number] [address] [place] [address] VITAMIN B1 (THIAMINE), WHOLE BLOODon 10-26-2024 Thiamine (Bld) [Moles/Vol] 191.8 nmol/L Normal 84.3-213.3 [facility] Comment on above: Order Comment: Lore buitrago Type: BLOOD SPECIMEN Ordering Facility: [facility] Address: [address] [place], [place] [id number] Result Comment: This assay measures the concentration of thiamine diphosphate (TDP), the primary active form of vitamin B1. Approximately 90 percent of vitamin B1 present in whole blood is TDP. Thiamine and thiamine monophosphate, which comprise the remaining 10 percent, are not measured. This test was developed, and its performance characteristics determined by the [facility] Department of Pathology and Laboratory Medicine. It has not been cleared or approved by the FDA. The [facility] Department of Pathology and Laboratory Medicine is regulated under CLIA as qualified to perform high-complexity testing. This test is used for clinical purposes. It should not be regarded as investigational or for research. Performed By: #### V ITB6 #### [facility] CLIA [id number] [address] [place] [address] VITAMIN B6/PYRIDOXINon 10-26 VITAMIN B6 34.4 nmol/L Normal 20.0-125.0 [facility] Comment on above: Order Comment: Speci men Type: BLOOD SPECIMEN Ordering Facility: [facility] Address: [address] [place] [address] Result Comment: INTE RPRETIVE INFORMATION: Vitamin B6 (Pyridoxal 5-Phosphate) Pyridoxal 5'-phosphate measured in a specimen collected following an 8-hour or overnight fast accurately indicates vitamin B6 nutritional status. Non-fasting specimen concentration reflects recent vitamin intake. This test was developed and its performance characteristics determined by [facility]. It has not been cleared or approved by the US Food and Drug Administration. This test was performed in a CLIA certified laboratory and is intended for clinical purposes. Performed By: [facility] [address] [place] [address] [employer] Dashboard Developer: Yared Curry MD, PhD CLIA Number: [id number] Performed By: #### V ITB6 #### [facility] CLIA [id number] [address] [place] [address] Vit B12 SerPl-mCncon 025 Cobalamin (Vitamin B12) [Mass/Vol] 467 pg/mL Normal 232-1245 [facility] Comment on above: Order Comment: Speci men Type: BLOOD SPECIMEN Ordering Facility: [facility] Address: [address] [place] [address] Performed By: #### 3 016-3, 2842-3 #### [facility] CLIA [id number] [address] [facility] [id number] [place] [address] [place] 12 Lead EKGon 10-25-2024 12 Lead EKG [facility] Cardiovascular Services [address] [place] [address] 12 Lead EKG 10/25/24 0052 MR#: [id number] Acct: [id number] Name: KATIE FORDE Rep #: [id number] : 2000 From: Yuly Aquino MD Attending Dr: Status: DEP ER Ordering Dr: Pérez Ren MD Date: 10/25/24 Location: ED Sex: F C Admitted: Test Reason : PALPS Blood Pressure : */* mmHG Vent. Rate : 107 BPM Atrial Rate : 107 BPM P-R Int : 144 ms QRS Dur : 70 ms QT Int : 354 ms P-R-T Axes : 52 54 56 degrees QTcB Int : 472 ms Sinus tachycardia Otherwise normal ECG Confirmed by LORIN MEDRANO, NIMCO ([id number]), map editor BRANDAN VAZQUEZ ([id number]) on 10/27/2024 11:57:31 AM Referred By: Confirmed By: NIMCO AQUINO MD 10/27/24 1157 Date Yuly Aquino MD CC: Dr. Pérez Ren MD; Dr. Kate Silva MD Signed Normal [facility] Absolute neutrophil countOrd ered By: Pérez Ren on 10-25-2024 Neutrophils (Bld) [#/Vol] 9.8 10*3/uL High 2.0-7.7 [facility] Anion gap in Serum or Plasma Ordered By: Pérez Ren on 10-25-2024 Anion gap [Moles/Vol] 13 mmol/L 5-15 [facility] BUN/creatinine ratioOrdered By: Pérez Ren on 10-25-2024 Urea nitrogen/Creatinine [Mass ratio] 11.6 mg/mg 10-20 [facility] Basophil percentageOrdered B y: Pérez Ren on 10-25-2024 Basophils/100 WBC (Bld) 0.6 % 0-1 [facility] Beta HCG ( test) Ql Ordered By: Pérez Ren on 10-25-2024 Serum Test, Qualitative Negative [facility] Bilirubin, totalOrdered By: Pérez Ren on 10-25-2024 Bilirubin [Mass/Vol] 0.26 mg/dL 0.00-1.30 [facility] CBC W/Diff, Automatedon 09-29 Absolute Lymph 4.49 X10 3/uL Normal 0.83-4.51 [facility] Comment on above: Performed By: #### L 500.4050, L700.6800, L100.0100, L501.5200 ####[facility] [address] [place], [address] Absolute Neut 9.8 X10 3/uL High 2.0-7.7 [facility] Comment on above: Performed By: #### L 500.4050, L700.6800, L100.0100, L501.5200 ####[facility] [address] [place], [address] Basophils/100 WBC (Bld) 0.6 % Normal 0-1 [facility] Comment on above: Performed By: #### L 500.4050, L700.6800, L100.0100, L501.5200 ####[facility] [address] [place], [address] Eosinophils/100 WBC (Bld) 1.0 % Normal 0-5 [facility] Comment on above: Performed By: #### L 500.4050, L700.6800, L100.0100, L501.5200 ####[facility] [address] [place], [address] Erythrocyte distribution width (RBC) [Ratio] 12.5 % Normal 11.6-14.6 [facility] Comment on above: Performed By: #### L 500.4050, L700.6800, L100.0100, L501.5200 ####[facility] [address] [place], [address] Hematocrit (Bld) [Volume fraction] 43.9 % Normal 37-47 [facility] Comment on above: Performed By: #### L 500.4050, L700.6800, L100.0100, L501.5200 ####[facility] [address] [place], [address] Hemoglobin (Bld) [Mass/Vol] 15.3 g/dL High 12.0-15.0 [facility] Comment on above: Performed By: #### L 500.4050, L700.6800, L100.0100, L501.5200 ####[facility] [address] [place], [address] IG% 0.400 Normal 0.0-0.9 [facility] Comment on above: Result Comment: IG% - Immature Granulocytes (promyelocytes, myelocytes and metamyelocytes) > 1% indicates that a LEFT SHIFT is Present. Performed By: #### L 500.4050, L700.6800, L100.0100, L501.5200 ####[facility] [address] [place], [address] Lymphocytes/100 WBC (Bld) 28.5 % Normal 19-41 [facility] Comment on above: Performed By: #### L 500.4050, L700.6800, L100.0100, L501.5200 ####[facility] [address] [place], [address] MCH (RBC) [Entitic mass] 30.6 pg Normal 27.0-32.0 [facility] Comment on above: Performed By: #### L 500.4050, L700.6800, L100.0100, L501.5200 ####[facility] [address] [place], [address] MCHC (RBC) [Mass/Vol] 34.9 g/dL Normal 32-36 [facility] Comment on above: Performed By: #### L 500.4050, L700.6800, L100.0100, L501.5200 ####[facility] [address] [place], [address] MCV (RBC) [Entitic vol] 87.8 fL Normal 81-99 [facility] Comment on above: Performed By: #### L 500.4050, L700.6800, L100.0100, L501.5200 ####[facility] [address] [place], [address] Monocytes/100 WBC (Bld) 7.2 % Normal 0-10 [facility] Comment on above: Performed By: #### L 500.4050, L700.6800, L100.0100, L501.5200 ####[facility] [address] [place], [address] Neutrophils/100 WBC (Bld) 62.3 % Normal 47-70 [facility] Comment on above: Performed By: #### L 500.4050, L700.6800, L100.0100, L501.5200 ####[facility] [address] [place], [address] Nucleated RBC (Bld) [#/Vol] 0 10*3/uL Normal 0-5 [facility] Comment on above: Performed By: #### L 500.4050, L700.6800, L100.0100, L501.5200 ####[facility] [address] [place], [address] Platelet mean volume (Bld) [Entitic vol] 9.7 fL Normal 6.2-12.0 [facility] Comment on above: Performed By: #### L 500.4050, L700.6800, L100.0100, L501.5200 ####[facility] [address] [place], [address] Platelets (Bld) [#/Vol] 503 10*3/uL High 150-450 [facility] Comment on above: Performed By: #### L 500.4050, L700.6800, L100.0100, L501.5200 ####[facility] [address] [place], [address] RBC (Bld) [#/Vol] 5.00 10*6/uL Normal 4.2-5.4 [facility] Comment on above: Performed By: #### L 500.4050, L700.6800, L100.0100, L501.5200 ####[facility] [address] [place], [address] RDW SD 40.1 fl Normal 35.1-43.9 [facility] Comment on above: Performed By: #### L 500.4050, L700.6800, L100.0100, L501.5200 ####[facility] [address] [place], [address] WBC (Bld) [#/Vol] 15.8 10*3/uL High 4.4-11.0 [facility] Comment on above: Performed By: #### L 500.4050, L700.6800, L100.0100, L501.5200 ####[facility] [address] [place], [address] Carbon dioxide, total [Moles /volume] in Central venous bloodOrdered By: Pérez Ren on 10-25-2024 CO2 [Moles/Vol] 20.5 mmol/L Low 21.0-32.0 [facility] Chest 1 View (Portable)on Chest 1 View (Portable) [facility] Imaging Services [address] [place] [address] Chest 1 View (Portable) MR#: [id number] Acct: [id number] Name: KATIE FORDE Rep #: [id number] : 2000 F 23 From: Alban Oakes MD PCP: Dr. Kate Silva MD Status: REG ER Study: Chest 1 View (Portable) Date of Exam: 10/25/24 Exam# [id number] Ordering Dr: Pérez Ren MD PROCEDURE: CHEST 1 VIEW (PORTABLE) 10/25/2024 REASON FOR EXAM: PALPITATIONS TECHNIQUE: Frontal view of the chest. COMPARISON: 09/29/2024 FINDINGS: Patient is rotated to the right. The lungs appear clear. Pulmonary vascularity appears within limits. No evidence of pleural effusion. The cardiac and mediastinal contours appear within limits. The visualized osseous structures appear within limits. RAD/Chest 1 View (Portable) IMPRESSION: No evidence of acute disease. Reading Location: [facility] CC: Dr. Pérez Ren MD; Dr. Kate Silva MD [employer] Se[employer]: Signed Normal [facility] Chloride assayOrdered By: Norman Ren on 10-25-2024 Chloride [Moles/Vol] 103 mmol/L 98-108 [facility] Comprehensive Metabolic Prof ilon 10-25-2024 Albumin [Mass/Vol] 4.2 g/dL Normal 3.5-5.[address] [facility] Comment on above: Performed By: #### L 500.4050, L700.6800, L100.0100, L501.5200 ####[facility] [address] [place], [address] Albumin/Globulin [Mass ratio] 1.1 {ratio} Normal 0.9-2.4 [facility] Comment on above: Performed By: #### L 500.4050, L700.6800, L100.0100, L501.5200 ####[facility] [address] [place], [address] ALK PHOS 80 U/L Normal 35-104 [facility] Comment on above: Performed By: #### L 500.4050, L700.6800, L100.0100, L501.5200 ####[facility] [address] [place], [address] ALT [Catalytic activity/Vol] 44 U/L High <=34 [facility] Comment on above: Performed By: #### L 500.4050, L700.6800, L100.0100, L501.5200 ####[facility] [address] [place], [address] AST [Catalytic activity/Vol] 36 U/L High <=31 [facility] Comment on above: Performed By: #### L 500.4050, L700.6800, L100.0100, L501.5200 ####[facility] [address] [place], [address] Bilirubin [Mass/Vol] 0.26 mg/dL Normal 0.00-1.30 [facility] Comment on above: Performed By: #### L 500.4050, L700.6800, L100.0100, L501.5200 ####[facility] [address] [place], [address] BUN/CRE 11.6 RATIO Normal 10-20 [facility] Comment on above: Performed By: #### L 500.4050, L700.6800, L100.0100, L501.5200 ####[facility] [address] [place], [address] Calcium [Mass/Vol] 8.7 mg/dL Normal 7.6-11.[address] [facility] Comment on above: Performed By: #### L 500.4050, L700.6800, L100.0100, L501.5200 ####[facility] [address] [place], [address] Chloride [Moles/Vol] 103 mmol/L Normal 98-108 [facility] Comment on above: Performed By: #### L 500.4050, L700.6800, L100.0100, L501.5200 ####[facility] [address] [place], [address] CO2 [Moles/Vol] 20.5 mmol/L Low 21.0-32.0 [facility] Comment on above: Performed By: #### L 500.4050, L700.6800, L100.0100, L501.5200 ####[facility] [address] [place], [address] Creatinine [Mass/Vol] 0.77 mg/dL Normal 0.70-1.20 [facility] Comment on above: Performed By: #### L 500.4050, L700.6800, L100.0100, L501.5200 ####[facility] [address] [place], [address] ECRCL 174.27 ml/min Normal 50-250 [facility] Comment on above: Performed By: #### L 500.4050, L700.6800, L100.0100, L501.5200 ####[facility] [address] [place], [address] GAP 13 Normal 5-15 [facility] Comment on above: Performed By: #### L 500.4050, L700.6800, L100.0100, L501.5200 ####[facility] [address] [place], [address] GFR/1.73 sq M.predicted among non-blacks MDRD (S/P/Bld) [Vol rate/Area] 109 mL/min/{1.73_m2} Normal >60 [facility] Comment on above: Result Comment: mL/m in/1.73m2 CKD-EPI Creatinine Equation (2020) Performed By: #### L 500.4050, L700.6800, L100.0100, L501.5200 ####[facility] [address] [place], [address] Globulin (S) [Mass/Vol] 3.8 g/dL Normal 2.2-4.2 [facility] Comment on above: Performed By: #### L 500.4050, L700.6800, L100.0100, L501.5200 ####[facility] [address] [place], [address] Glucose [Mass/Vol] 105 mg/dL High 70-[address] [facility] Comment on above: Performed By: #### L 500.4050, L700.6800, L100.0100, L501.5200 ####[facility] [address] [place], [address] Potassium [Moles/Vol] 3.5 mmol/L Normal 3.3-5.1 [facility] Comment on above: Performed By: #### L 500.4050, L700.6800, L100.0100, L501.5200 ####[facility] [address] [place], [address] Sodium [Moles/Vol] 137 mmol/L Normal 133-[address] [facility] Comment on above: Performed By: #### L 500.4050, L700.6800, L100.0100, L501.5200 ####[facility] [address] [place], [address] T PROT 8.0 g/dL Normal 5.9-8.4 [facility] Comment on above: Performed By: #### L 500.4050, L700.6800, L100.0100, L501.5200 ####[facility] [address] [place], [address] Urea nitrogen [Mass/Vol] 9 mg/dL Normal 4-19 [facility] Comment on above: Performed By: #### L 500.4050, L700.6800, L100.0100, L501.5200 ####[facility] [address] [place], [address] Emergency Department Summary on 10-25-2024 Emergency Department Summary [facility] Medical Records Department [address] [place] [address] Emergency Department Summary 10/25/24 MR#: [id number] Acct: [id number] Name: KATIE FORDE Rep #: [id number] : 2000 From: Pérez Ren MD PCP: Dr. Kate Silva MD Status:DEP ER Location: ED HPI History of Present Illness Chief Complaint: Palpitations Narrative Narrative: 23-year-old female presents via EMS with rapid heart rate and palpitations. She relates history that she has been seen twice in the emergency department for feelings like this previously. This evening, just prior to arrival, she states her heart rate shot up to 150 bpm. She felt heart palpitations. She feels lightheaded as well. She has had these symptoms before and she is followed up with her primary care provider. She states that she also has out of body experiences. She was told previously that this may be due to her mental health, but she is also being worked up for MS. She states that she felt short of breath, mainly in her throat. She will also cough on occasion with this. Her main concern was her elevated heart rate and this feeling of shortness of breath and lightheadedness as well. [facility] Medical History Depersonalization disorder Fatty liver Smoker Marfan syndrome ADHD (attention deficit hyperactivity disorder) Retinal detachment, old, total/subtotal Femur fracture, right Home Medications ???Medication ???Instructions ???Recorded ???Last Taken ???Type dextroamphetamine-ampheta mine 30 30 mg PO DAILY 04/03/15 Unknown Hi story mg tablet (Adderall) methylphenidate HCl 20 mg tablet 20 mg PO DAILY 04/03/15 Unknown Hi story (Ritalin) medroxyprogesterone 10 mg tablet 10 mg PO DAILY 12/02/23 11/30/23 H istory vit no.95-ferrous 1 tab PO DAILY 12/02/23 Unknown Hi story fumarate 28 mg-folic acid 800 mcg tablet () dextroamphetamine-ampheta mine ER 1 cap PO 10/06/24 Unknown History 30 mg 24hr capsule,extend release dulaglutide 1.5 mg/0.5 mL 1.5 mg subcut QWEEK 10/06/24 Unkno wn History subcutaneous pen injector (Trulicity) norethindrone (contraceptive) 0.35 0.35 mg PO DAILY 10/06/24 Unknow n History mg tablet (Deblitane) Allergy/AdvReac Type Severity Reaction Status Date / Time No Known Allergies Allergy Verified 10/06/24 19:45 Surgical History History of liver biopsy Social History Smoking Status: Light Smoker (<10/day) ROS ROS ED ROS Narrative Review of systems positive for palpitations, rapid heart rate, lightheadedness, shortness of breath. She felt lightheaded when walking out to the ambulance. No other exacerbating or alleviating factors. EXAM Physical Exam Narrative Exam Narrative: Afebrile. Vital signs noted. Nontoxic-appearing. Cardiovascular examination reveals a regular tachycardia. Lungs are clear to auscultation bilaterally. Abdomen is soft and nontender without guarding or rebound. Positive bowel sounds. Neurological examination is nonfocal and nonlateralizing. No pedal edema. Const Vital Signs: 10/25/24 00:37 10/25/24 00:41 10/25/24 00:53 Temperature 97.8 F Temperature Source Temporal Pulse Rate 115 H Pulse Rate [Lying] 95 Pulse Rate [Sitting (for 1 minute prior to obtaining)] 98 Pulse Rate [Standing (for 1 minute prior to obtaining)] 105 H Respiratory Rate 24 H Respiratory Effort Normal Blood Pressure 137/76 H Blood Pressure [Lying] 120/76 Blood Pressure [Sitting (for 1 minute prior to obtaining)] 120/79 Blood Pressure [Standing (for 1 minute prior to obtaining)] 125/84 H Blood Pressure Mean 96 Blood Pressure Mean [Lying] 90 Blood Pressure Mean [Sitting (for 1 minute prior to obtaining)] 92 Blood Pressure Mean [Standing (for 1 minute prior to obtaining)] 97 Pulse Ox 100 Oxygen Delivery Method Room Air 10/25/24 01:56 Temperature 97.8 F Temperature Source Pulse Rate 98 Pulse Rate [Lying] Pulse Rate [Sitting (for 1 minute prior to obtaining)] Pulse Rate [Standing (for 1 minute prior to obtaining)] Respiratory Rate 18 Respiratory Effort Blood Pressure 123/76 H Blood Pressure [Lying] Blood Pressure [Sitting (for 1 minute prior to obtaining)] Blood Pressure [Standing (for 1 minute prior to obtaining)] Blood Pressure Mean 91 Blood Pressure Mean [Lying] Blood Pressure Mean [Sitting (for 1 minute prior to obtaining)] Blood Pressure Mean [Standing (for 1 minute prior to obtaining)] Pulse Ox 99 Oxygen Delivery Method MDM MDM MDM Narrative Medical decision making narrative: Differential diagnosis includes sinus tachycardia v (more content not included)... Normal [facility] Eosinophil percentageOrdered By: Pérez Ren on 10-25-2024 Eosinophils/100 WBC (Bld) 1.0 % 0-5 [facility] Erythrocyte distribution wid th (RBC) [Ratio]Ordered By: Pérez Ren on 10-25-2024 Erythrocyte distribution width (RBC) [Entitic vol] 40.1 fL 35.1-43.9 [facility] Erythrocyte distribution wid th ratioOrdered By: Pérez Ren on 10-25-2024 Erythrocyte distribution width (RBC) [Ratio] 12.5 % 11.6-14.6 [facility] Estimation of creatinine nicole aranceOrdered By: Pérez Ren on 10-25-2024 Estimated Creatinine Clearance Calc 174.27 ml/min 50-250 [facility] GFR/1.73 sq M.predicted tiesha g non-blacks MDRD (S/P/Bld) [Vol rate/Area]Ordered By: Pérez Ren on 10-25-2024 Estimated GFR (MDRD) Non-Af Amer 109 >60 [facility] Comment on above: mL/min/1.73m2 CKD-EP I Creatinine Equation (2020) Hematocrit Auto (Bld) [Volum e fraction]Ordered By: Pérez Ren on 10-25-2024 Hematocrit (Bld) [Volume fraction] 43.9 % 37-47 [facility] Hemoglobin measurementOrdere d By: Pérez Ren on 10-25-2024 Hemoglobin (Bld) [Mass/Vol] 15.3 g/dL High 12.0-15.0 [facility] Immature granulocytes/100 WB C Auto (Bld)Ordered By: Pérez Ren on 10-25-2024 Immature granulocytes/100 WBC (Bld) 0.400 % 0.0-0.9 [facility] Comment on above: IG% - Immature Granu locytes (promyelocytes, myelocytes and metamyelocytes) > 1% indicates that a LEFT SHIFT is Present. Laboratory - Chemistry and C hemistry - challengeOrdered By: Pérez Ren on 10-25-2024 AST [Catalytic activity/Vol] 36 U/L High <32 [facility] Lymphocytes Auto (Unsp spec) [#/Vol]Ordered By: Pérez Ren on 10-25-2024 Lymphocytes (Bld) [#/Vol] 4.49 10*3/uL 0.83-4.51 [facility] Lymphocytes/100 WBC Auto (Un sp spec)Ordered By: Pérez Ren on 10-25-2024 Lymphocytes/100 WBC (Bld) 28.5 % 19-41 [facility] MCV (mean corpuscular volume ) determinationOrdered By: Pérez Ren on 10-25-2024 MCV (RBC) [Entitic vol] 87.8 fL 81-99 [facility] Magnesiumon 10-25-2024 Magnesium [Mass/Vol] 2.3 mg/dL High 1.5-2.2 [facility] Comment on above: Performed By: #### L 500.4050, L700.6800, L100.0100, L501.5200 ####[facility] [id number] [place], [place], [id number] Magnesium (Unsp spec) [Mass/ Vol]Ordered By: Pérez Ren on 10-25-2024 Magnesium [Mass/Vol] 2.3 mg/dL High 1.5-2.2 [facility] Mean corpuscular hemoglobin (MCH) determinationOrdered By: Pérez Ren on 10-25-2024 MCH (RBC) [Entitic mass] 30.6 pg 27.0-32.0 [facility] Mean corpuscular hemoglobin concentration (MCHC) determinationOrdered By: Pérez Ren on 10-25-2024 MCHC (RBC) [Mass/Vol] 34.9 g/dL 32-36 [facility] Mean platelet volume determi nationOrdered By: Pérez Ren on 10-25-2024 Platelet mean volume (Bld) [Entitic vol] 9.7 fL 6.2-12.0 [facility] Monocyte percentageOrdered B y: Pérez Ren on 10-25-2024 Monocytes/100 WBC (Bld) 7.2 % 0-10 [facility] Neutrophil percentageOrdered By: Pérez Ren on 10-25-2024 Neutrophils/100 WBC (Bld) 62.3 % 47-70 [facility] Nucleated red blood cell per centageOrdered By: Pérez Ren on 10-25-2024 Nucleated RBC/100 WBC (Bld) [Ratio] 0 % 0-5 [facility] Platelet countOrdered By: Norman Ren on 10-25-2024 Platelets (Bld) [#/Vol] 503 10*3/uL High 150-450 [facility] Potassium (Unsp spec) [Mass/ Vol]Ordered By: Pérez Ren on 10-25-2024 Potassium [Moles/Vol] 3.5 mmol/L 3.3-5.1 [facility] ,Serum,hCG Quali.on 10-25-2024 HCG, SERUM QUAL Negative Normal [facility] Comment on above: Performed By: #### L 500.4050, L700.6800, L100.0100, L501.5200 ####[facility] [id number] [place], [place], [id number] RBC Auto (Bld) [#/Vol]Ordere d By: Pérez Ren on 10-25-2024 RBC (Bld) [#/Vol] 5.00 10*6/uL 4.2-5.4 [facility] Serum creatinine measurement (mass/volume)Ordered By: Pérez Ren on 10-25-2024 Creatinine [Mass/Vol] 0.77 mg/dL 0.70-1.20 [facility] Serum globulin measurementOr dered By: Pérez Ren on 10-25-2024 Globulin (S) [Mass/Vol] 3.8 g/dL 2.2-4.2 [facility] Serum glucose measurement (m ass/volume)Ordered By: Pérez Ren on 10-25-2024 Glucose [Mass/Vol] 105 mg/dL High 70-[address] [facility] Serum or plasma alanine nath otransferase (ALT) measurementOrdered By: Pérez Ren on 10-25-2024 ALT [Catalytic activity/Vol] 44 U/L High <35 [facility] Serum or plasma albumin lawrence urement (mass/volume)Ordered By: Pérez Ren on 10-25-2024 Albumin [Mass/Vol] 4.2 g/dL 3.5-5.[address] [facility] Serum or plasma albumin/glob ulin mass ratioOrdered By: Pérez Ren on 10-25-2024 Albumin/Globulin [Mass ratio] 1.1 {ratio} 0.9-2.4 [facility] Serum or plasma alkaline charisse sphatase measurementOrdered By: Pérez Ren on 10-25-2024 ALP [Catalytic activity/Vol] 80 U/L 35-104 [facility] Serum or plasma calcium lawrence urement (mass/volume)Ordered By: Pérez Ren on 10-25-2024 Calcium [Mass/Vol] 8.7 mg/dL 7.6-11.[address] [facility] Serum or plasma urea nitroge n measurement (mass/volume)Ordered By: Pérez Ren on 10-25-2024 Urea nitrogen [Mass/Vol] 9 mg/dL 4-19 [facility] Sodium levelOrdered By: Pérez Ren on 10-25-2024 Sodium [Moles/Vol] 137 mmol/L 133-[address] [facility] Total proteinOrdered By: Teresita Ren on 10-25-2024 Protein [Mass/Vol] 8.0 g/dL 5.9-8.[address] [facility] White blood cell (WBC) count Ordered By: Pérez Ren on 10-25-2024 WBC (Bld) [#/Vol] 15.8 10*3/uL High 4.4-11.0 [facility] CNOVon 10-20-2024 CNOV Office Visit (INTMWS ) ----- KATIE FORDE ([id number]) 2000 F Date Time Provider Department 10/20/24 10:00 AM KATE SILVA INTMWS During your visit today, we recorded the following information about you: Temperature Pulse Respiration Blood pressure 99 degrees 95/minute 14/minute 118/70 Weight Height Last Period 133.8 kg 1.829 m 09/28/24 Kate Silva MD 11/15/2024 12:43 AM Signed This note was created using GMEX. Subjective Katie Forde is a 23 year old female. Patient presents with: ED Follow-up: lightheadedness, fatgiue x 1 month Katie is a 23-year-old female with a history of leukocytosis, depression, and anxiety, presenting with persistent fatigue, lightheadedness, and a recent onset of cough. Katie reports persistent fatigue and lightheadedness since the beginning of September, which have led to three ER visits: two at [facility] and one at [facility]. She notes that the lightheadedness has improved, but she continues to experience significant fatigue, describing it as really tired, like no matter how much I sleep, I'm really tired and I don't want to do anything. She also reports ongoing depersonalization and frequent palpitations. The symptoms were severe enough to prompt the ER visits, with Katie stating, It just got really bad that night, I'm like, I can't do this. During her ER visits, she was informed that her white blood cell count was elevated, with the most recent count at 17.5. She notes that her manufacturing process engineer is not concerned about the elevated count, stating that Katie's white blood cell count has always been semi-high. She was advised to take a baby aspirin, which she has taken a couple of times but not consistently. Katie also reports a recent onset of a cough that has been present for three days, which she describes as horrible and keeps her up at night. She has not taken any medication for the cough and denies any wheezing or tightness. She also reports a sore throat secondary to the cough. In addition to her physical symptoms, Katie reports worsening depression and anxiety, stating, It gets to the point where I don't want to do anything, and like, my whole body starts shaking, I start panicking. She also reports experiencing panic attacks, particularly in dark rooms, which she previously tolerated well. She has a history of depression and anxiety and has been seen at the [facility] in the past. She denies any suicidal or homicidal ideation. Katie also reports issues with dandruff, describing it as so bad to the point, like, I'm embarrassed. She notes the presence of random bumps on her scalp and flaking. PAST MEDICAL HISTORY Diagnosis Date ADHD (attention deficit hyperactivity disorder) Fatty liver GERD (gastroesophageal reflux disease) Marfan's syndrome (HCC) VIRAL WARTS NOS 06/25/2008 resolved Current Outpatient Medications Medication Sig clobetasol (TEMOVATE) 0.05 % cream Apply to affected area 2x/day for 2 weeks, then 1x/day for a week, than 1-3x/week for maintenance. meclizine (ANTIVERT) 25 mg tab Take 1 tablet by mouth three times a day as needed (for dizziness.vertigo.). rizatriptan (MAXALT) 10 mg tablet Take 1 tablet by mouth as needed for migraine headache (see administration instructions). May repeat dose after 2 hours if needed. Maximum daily dose is 30 mg per day. triamcinolone acetonide (KENALOG) 0.1 % cream Apply to affected area two times a day as needed. May use for up to 14 days per rash omeprazole (PRILOSEC) 20 mg capsule Take 1 capsule by mouth once daily. On empty stomach at least 30 minutes before eating. Blood-Glucose Meter 1 Device as directed. For once daily testing blood sugar diagnostic (BLOOD GLUCOSE TEST) test strip Test blood sugar(s) one times daily. Dx: Type 2 DM - Controlled E11.9 Insulin: No Lancets Test blood sugar(s) one times daily. Dx: Type 2 DM - Controlled E11.9 Insulin: No Norethindrone, Contraceptive, (SELMA) 0.35 mg tablet Take 1 tablet by mouth once daily. CPAP/BIPAP/OTHER Type .CPAPSettings into a note to see current settings/supplies/DME information. ondansetron orally disintegrating (ZOFRAN ODT) 4 mg disintegrating tablet Take 1 tablet by mouth every 8 hours as needed for nausea/vomiting. dulaglutide (TRULICITY) 0.75 mg/0.5 mL pen injector Inject 0.75 mg subcutaneously one time a week. LORazepam (ATIVAN) 1 mg tablet Take 1 tablet by mouth three times a day as needed for anxiety for up to 30 days. propranolol (INDERAL) 20 mg tablet Take 1 tablet by mouth three times a day as needed (for heart rate over 100). QUEtiapine (SEROQUEL) 25 mg tablet Take 1-2 tablets by mouth daily at bedtime. albuterol HFA (PROVENTIL HFA, VENTOLIN HFA) 90 mcg/actuation inhaler Inhale 2 puffs as instructed every 4 hours as needed for wheezing/shortnes (more content not included)... Normal [facility] .Auto Diffon 10-13-2024 Basophil, Absolute 0.2 10 3/mcL Normal 0.0-0.3 [facility] Comment on above: Performed By: #### A KRISHAN, CBC, TROPHS, GFR, BRETT RUELAS, BMP #### [address] [address] Basophils/100 WBC (Bld) 0.9 % Normal 0.0-2.5 [facility] Comment on above: Performed By: #### A KRISHAN, CBC, TROPHS, GFR, BRETT RUELAS, BMP #### [address] [place], [place] [address] Eosinophil, Absolute 0.1 10 3/mcL Normal 0.0-0.7 [facility] Comment on above: Performed By: #### A KRISHAN, CBC, TROPHS, GFR, BRETT RUELAS, BMP #### [address] [address] Eosinophils/100 WBC (Bld) 0.5 % Normal 0.0-6.0 [facility] Comment on above: Performed By: #### A KRISHAN, CBC, TROPHS, GFR, ADIFF, MDW, BMP #### [address] [address] Lymphocyte, Absolute 4.8 10 3/mcL High 0.9-4.3 [facility] Comment on above: Performed By: #### A KRISHAN, CBC, TROPHS, GFR, ADIFF, MDW, BMP #### [address] [address] Lymphocytes/100 WBC (Bld) 27.5 % Normal 20.0-40.0 [facility] Comment on above: Performed By: #### A KRISHAN, CBC, TROPHS, GFR, ADIFF, MDW, BMP #### [address] [address] Monocyte, Absolute 1.1 10 3/mcL Normal 0.1-1.4 [facility] Comment on above: Performed By: #### A KRISHAN, CBC, TROPHS, GFR, ADIFF, MDW, BMP #### [address] [address] Monocytes/100 WBC (Bld) 6.1 % Normal 2.0-13.0 [facility] Comment on above: Performed By: #### A KRISHAN, CBC, TROPHS, GFR, ADIFF, MDW, BMP #### [address] [address] Neutrophils/100 WBC (Bld) 65.0 % Normal 50.0-75.0 [facility] Comment on above: Performed By: #### A KRISHAN, CBC, TROPHS, GFR, ADIFF, MDW, BMP #### [address] [address] .GFRon 10-13-2024 Estimated Glomerular Filtration Rate 85 ml/min/1.73sqm Normal [facility] Comment on above: Result Comment: Stages of Chronic Kidney Disease (CKD) Stage Description eGFR(ml/min/1.73 sq.m.) CKD 1 Normal kidney function or >=90 normal kindney function with possible kidney damage (ex. Proteinuria) CKD 2 Kidney damage with mild loss 60-89 of kidney function CKD 3a Mild to moderate loss of kidney 45-59 function CKD 3b Moderate to severe loss of 30-44 of kindey function CKD 4 Severe loss of kidney function 15-29 CKD 5 Kidney failure <15 Note: (go live 2024) the eGFR calculation was updated to the 2020 CKD-EPI creatinine equation without a race factor to calculate the eGFR results. Performed By: #### A KRISHAN, CBC, TROPHS, GFR, ADIFF, BRETT, BMP #### [address] [address] .MDWon 10-13-2024 Monocyte Distribution Width 18.05 Normal 0.00-20.00 [facility] Comment on above: Result Comment: For ED adult patients suspected of sepsis, MDW<=20.0 does not rule out sepsis or risk of sepsis Performed By: #### A KRISHAN, CBC, TROPHS, GFR, ADIFF, BRETT, BMP #### [address] [address] .NEUABSon 10-13-2024 Neutrophil, Absolute 11.4 10 3/mcL High 2.3-8.1 [facility] Comment on above: Performed By: #### A KRISHAN, CBC, TROPHS, GFR, ADIFF, BRETT, BMP #### [address] [address] .Urinalysis Microscopic (AO) on 10-13-2024 UA Bacteria 1+ /hpf Abnormal [facility] Comment on above: Performed By: #### A KRISHAN, CBC, TROPHS, GFR, ADBRETT OLGUIN, BMP #### [address] [address] UA RBC 0-5 Abnormal None Seen [facility] Comment on above: Performed By: #### A KRISHAN, CBC, TROPHS, GFR, ADIFF, BRETT, BMP #### [address] [address] UA Squam Epithelial 10-15 Abnormal None Seen [facility] Comment on above: Performed By: #### A KRISHAN, CBC, TROPHS, GFR, ADBRETT OLGUIN, BMP #### [address] [address] UA WBC 10-15 Abnormal None Seen [facility] Comment on above: Performed By: #### A KRISHAN, CBC, TROPHS, GFR, ADBRETT OLGUIN, BMP #### [address] [address] BMPon 10-13-2024 BUN/Creatinine Ratio 13 ratio Normal 7-27 [facility] Comment on above: Performed By: #### A KRISHAN, CBC, TROPHS, GFR, BRETT RUELAS, BMP #### [address] [address] Calcium [Mass/Vol] 8.7 mg/dL Normal 8.4-10.2 [facility] Comment on above: Performed By: #### A KRISHAN, CBC, TROPHS, GFR, ADCLAU, BRETT, BMP #### [address] [address] Chloride [Moles/Vol] 103 mmol/L Normal 98-107 [facility] Comment on above: Performed By: #### A KRISHAN, CBC, TROPHS, GFR, SURAJ, BRETT, BMP #### [address] [address] CO2 [Moles/Vol] 29 mmol/L Normal 22-29 [facility] Comment on above: Performed By: #### A KRISHAN, CBC, TROPHS, GFR, BRETT RUELAS, BMP #### [address] [address] Creatinine [Mass/Vol] 0.95 mg/dL Normal 0.55-1.02 [facility] Comment on above: Result Comment: Test ing performed on Siemens Dimension EXL analyzer using a modified kinetic Schuyler technique. Performed By: #### A KRISHAN, CBC, TROPHS, GFR, ADCLAU, BRETT, BMP #### [address] [address] Electrolyte Balance 6.0 mEq/L Normal 4.0-15.0 [facility] Comment on above: Performed By: #### A KRISHAN, CBC, TROPHS, GFR, ADCLAU, BRETT, BMP #### [address] [address] Glucose [Mass/Vol] 99 mg/dL Normal 70-105 [facility] Comment on above: Performed By: #### A KRISHAN, CBC, TROPHS, GFR, SURAJ, W, BMP #### [address] [address] Potassium [Moles/Vol] 3.7 mmol/L Normal 3.5-5.1 [facility] Comment on above: Performed By: #### A KRISHAN, CBC, TROPHS, GFR, SURAJ, BRETT, BMP #### [address] [address] Sodium [Moles/Vol] 138 mmol/L Normal 136-145 [facility] Comment on above: Performed By: #### A KRISHAN, CBC, TROPHS, GFR, BRETT RUELAS, BMP #### [address] [address] Urea nitrogen [Mass/Vol] 12 mg/dL Normal 7-18 [facility] Comment on above: Performed By: #### A KRISHAN, CBC, TROPHS, GFR, BRETT RUELAS, BMP #### [address] [address] CBCon 10-13-2024 Erythrocyte distribution width (RBC) [Ratio] 13.2 % Normal 11.5-15.5 [facility] Comment on above: Performed By: #### A KRISHAN, CBC, TROPHS, GFR, ADCLAU, BRETT, BMP #### [address] [address] Hematocrit (Bld) [Volume fraction] 39.8 % Normal 34.0-46.0 [facility] Comment on above: Performed By: #### A KRISHAN, CBC, TROPHS, GFR, ADIFF, MDW, BMP #### [address] [address] Hgb 13.6 G/dL Normal 12.0-16.0 [facility] Comment on above: Performed By: #### A KRISHAN, CBC, TROPHS, GFR, ADIFF, MDW, BMP #### [place] [address] MCH (RBC) [Entitic mass] 30.3 pg Normal 27.0-33.0 [facility] Comment on above: Performed By: #### A KRISHAN, CBC, TROPHS, GFR, ADIFF, MDW, BMP #### [place] [address] MCHC 34.1 G/dL Normal 32.0-36.0 [facility] Comment on above: Performed By: #### A KRISHAN, CBC, TROPHS, GFR, ADIFF, MDW, BMP #### [address] [address] MCV (RBC) [Entitic vol] 88.8 fL Normal 80.0-99.0 [facility] Comment on above: Performed By: #### A KRISHAN, CBC, TROPHS, GFR, ADIFF, MDW, BMP #### [address] [address] Platelet 459 10 3/mcL High 150-450 [facility] Comment on above: Performed By: #### A KRISHAN, CBC, TROPHS, GFR, ADIFF, MDW, BMP #### [address] [address] Platelet mean volume (Bld) [Entitic vol] 7.9 fL Normal 6.6-10.5 [facility] Comment on above: Performed By: #### A KRISHAN, CBC, TROPHS, GFR, ADIFF, MDW, BMP #### [address] [address] RBC 4.48 10 6/mcL Normal 4.10-5.30 [facility] Comment on above: Performed By: #### A KRISHAN, CBC, TROPHS, GFR, BRETT RUELAS, BMP #### [address] [address] WBC 17.5 10 3/mcL High 4.5-10.8 [facility] Comment on above: Performed By: #### A KRISHAN, CBC, TROPHS, GFR, BRETT RUELAS, BMP #### [address] [address] PREGUon 10-13-2024 HCG ( test) Ql (U) Negative Normal [facility] Comment on above: Performed By: #### U A, UAMICJOLLY, PREGU #### [place] [id number] test (u) int Not detected Invalid Interpretation Code [facility] Comment on above: Performed By: #### U A, UAMICAO, PREGU #### [address] [address] TROPHSon 10-13-2024 High Sensitivity Troponin I <4 Normal 0-51 [facility] Comment on above: Result Comment: High Sensitive Troponin I Reference Ranges: Female: 0-51 ng/L Male: 0-76 ng/L Testing performed on [employer] using a homogeneous sandwich chemiluminescent immunoassay based on [employer] technology. Performed By: #### A KRISHAN, CBC, TROPHS, GFR, BRETT RUELAS, BMP #### [address] [address] UAon 10-13-2024 Color (U) Yellow Normal [facility] Comment on above: Performed By: #### U A, UAMICAO, PREGU #### [address] [address] Glucose (U) [Mass/Vol] Negative Normal Negative [facility] Comment on above: Performed By: #### U A, UAMICAO, PREGU #### [address] [address] Ketones Ql (U) Negative Normal Negative [facility] Comment on above: Performed By: #### U A, UAMICAO, PREGU #### [place] [address] UA Appear Cloudy Abnormal Clear [facility] Comment on above: Performed By: #### U A, UAMICAO, PREGU #### [place] [address] UA Blood Trace Abnormal Negative [facility] Comment on above: Performed By: #### U A, UAMICAO, PREGU #### [place] [address] UA Leuk Est Negative Normal Negative [facility] Comment on above: Performed By: #### U A, UAMICAO, PREGU #### [place] [address] UA Nitrite Negative Normal Negative [facility] Comment on above: Performed By: #### U A, UAMICAO, PREGU #### [place] [address] UA pH 5.5 Normal 5.0 - 8.0 [facility] Comment on above: Performed By: #### U A, UAMICAO, PREGU #### [place] [address] UA Protein Negative Normal Negative [facility] Comment on above: Performed By: #### U A, UAMICAO, PREGU #### [place] [address] UA Spec Grav >=1.030 Abnormal 1.015-1.025 [facility] Comment on above: Performed By: #### U A, UAMICAO, PREGU #### [place] [address] UA Specimen Type Clean Catch Normal [facility] Comment on above: Performed By: #### U A, UAMICAO, PREGU #### [place] [address] UA Urobilinogen 0.2 E.U./dL Normal 0.2-1.0 [facility] Comment on above: Performed By: #### U ADEREKMICJOLLY PREGU #### [facility] [address], [place] [address] Urobilinogen (U) [Mass/Vol] Negative Normal Negative [facility] Comment on above: Performed By: #### U A, UAMICJOLLY, PREGU #### [facility] [address], [place] [address] XR CHEST 1 VIEWon 10-13-2024 XR CHEST 1 VIEW ORIGINAL EXAMINATION: ONE XRAY VIEW OF THE CHEST 10/13/2024 1:35 am COMPARISON: None. HISTORY: ORDERING SYSTEM PROVIDED HISTORY: Reason for Exam: sob FINDINGS: The cardiomediastinal silhouette is within normal limits. No pleural effusion or pneumothorax. No focal consolidation. No acute osseous abnormality. IMPRESSION: No focal consolidation or edema. I have personally reviewed the images of this examination and agree with the resident's findings and interpretation. Interpreted by: French Fitch MD Preliminary Report By: Bunny Millan Electronically signed By French Fitch MD Dictated Date: 10/13/2024 1:52:36 AM Prelim Date: 10/13/2024 1:53:55 AM Sign Date: 10/13/2024 2:03:20 AM Ordering Provider: GISELLE Lawler [facility] BACTERIAL VAGINOSIS NAATon 0 10-11-2024 Lactobacillus crispatus+gasseri+agustina senii + Gardnerella vaginalis + Atopobium vaginae rRNA EDMOND+probe Ql (Vag fld) Not detected Normal Not detected [facility] Comment on above: Order Comment: Speci men Type: BLOOD SPECIMEN Ordering Facility: [facility] Address: [address] [place] [address] Performed By: #### 3 016-3, 2842-3 #### [facility] CLIA [id number] [address] [address] [place] [address] [place] YEIMY/TRICHOMONAS NAATon 0 10-11-2024 C. glabrata RNA EDMOND+probe Ql (Vag fld) Not detected Normal Not detected [facility] Comment on above: Order Comment: Speci men Type: BLOOD SPECIMEN Ordering Facility: [facility] Address: [address] [place] [address] Performed By: #### 3 016-3, 2842-3 #### [facility] CLIA [id number] [address] [place] [address] [place] Yeimy sp DNA EDMOND+probe Ql (Vag fld) Not detected Normal Not detected [facility] Comment on above: Order Comment: Speci men Type: BLOOD SPECIMEN Ordering Facility: [facility] Address: [address] [place] [address] Result Comment: The Yeimy species group target includes C. albicans, C. tropicalis, C. parapsilosis, and C. dubliniensis. Performed By: #### 3 016-3, 2842-3 #### [facility] CLIA [id number] [address] [place] [address] [place] T. vaginalis DNA EDMOND+probe Ql (Unsp spec) Not detected Normal Not detected [facility] Comment on above: Order Comment: Speci men Type: BLOOD SPECIMEN Ordering Facility: [facility] Address: [address] [place] [address] Performed By: #### 3 016-3, 284-3 #### [facility] CLIA [id number] [address] [place] [address] [place] CNOVon 10-11-2024 CNOV Office Visit (OBGYWM ) ----- KATIE FORDE ([id number]) 2000 F Date Time Provider Department 10/11/24 9:30 AM PAT FERRER OBIDRIS During your visit today, we recorded the following information about you: Blood pressure Weight Last Period 100/66 133.5 kg 08/06/24 Arminda Montoya LPN 10/11/2024 9:34 AM Signed VULVAR BIOPSY PATIENT INSTRUCTIONS Many conditions may cause your intensive care unit registered nurse to suggest a vulvar biopsy including vulvar itching unresponsive to therapy, ulcerated lesions, pigmented lesions, and tumors. The biopsy result will assist your intensive care unit registered nurse to devise a treatment plan suitable to your condition. 1. Usually, there is a local discomfort, swelling, and skin discoloration. Using cold compresses overnight usually alleviates the discomfort considerably. Warm compresses thereafter can be used as needed. Prescribed analgesic (pain killers) are not necessary. You may use Advil, Tylenol, etc. for pain relief. 2. You may shower or take tub baths. 3. If sutures are used, they will dissolve in 7-14 days. 4. You should call the office if there is excessive bleeding, swelling, fever, chills, sweats, or difficulty walking. 5. Biopsy results will be available in 7-10 days. If you have not heard your results in 2 weeks please contact your physician. Pat Ferrer APRN.MERLIN 10/11/2024 10:13 AM Signed Patient declined chaperoene. Katie Forde is a 23 year old female who presents today for a vulvar biopsy. Indication: persistent pruritis. UNIVERSAL PROTOCOL / SAFETY CHECKLIST Procedure to be Performed: Vulvar Biopsy Sign In: A Moment of CARE was completed. Appropriate PPE (Personal Protective Equipment) worn by all providers involved with the procedure. Special equipment not required. Patient/Surrogate Stated/Verified: Patient name, Date of , Relevant allergies, and The intended procedure Time Out: Relevant labs, photos, and/or imaging studies have been reviewed. Intended patient and procedure match the source document(s) (e.g. consent, HANDP, associated studies [imaging, pathology]) match the intended patient and procedure. Consent obtained and matches the intended procedure. Yes. Correct side/site has been marked and visible. Medications required for this procedure are verified. Fire risk assessed and is not applicable. Implants: are not applicable. Sign Out: Specimens are all correctly labeled and sent. All instruments, equipment, possible retained foreign bodies are accounted for. Yes. The post-procedure plan of care has been communicated to the patient or surrogate. PROCEDURE NOTE: GROSS LESIONS: No BIOPSY: Area was cleansed with betadine and anesthetized with 2 mL 1% lidocaine with 1:100,000 epi. 4mm Naa punch used to biopsy region. HEMOSTASIS: Obtained with silver nitrate and pressure Procedure Summary: Patient tolerated procedure well. ASSESSMENT: persistent vulvar irritation PLAN: Specimens labeled and sent to Pathology. Will notify patient of results in 1-2 weeks. Post-procedure instructions reviewed and written material given to the patient. Pat Ferrer APRN.ELECTRIC STOVE MECHANIC Referring Provider: PAT FERRER [[id number]] Allergies As of Date: 10/11/2024 (No Known Allergies) Date Reviewed: 10/11/2024 Reviewed by: Arminda Montoya LPN - Fully Assessed Reason for Visit: vulvar biopsy [Other] Primary Visit Diagnosis:Vulvar itching [L29.2] Other Visit Diagnosis:Missed menses [N92.6] Order(s):SURGICAL PATHOLOGY [ZXE4757] Order #: [id number] UA DIP,URINE HCG (POC) [4868527] Order #: [id number]. #:[id number] 74-LAB YEIMY/TRICHOMONAS NAAT [SQCVTV] Order #: [id number] BACTERIAL VAGINOSIS NAAT [SQBVAMP] Order #: [id number] Prescriptions as of 10/11/2024 - meclizine (ANTIVERT) 25 mg tab Take 1 tablet by mouth three times a day as needed (for dizziness.vertigo.). - rizatriptan (MAXALT) 10 mg tablet Take 1 tablet by mouth as needed for migraine headache (see administration instructions). May repeat dose after 2 hours if needed. Maximum daily dose is 30 mg per day. - dulaglutide (TRULICITY) 1.5 mg/0.5 mL pen injector Inject 1.5 mg subcutaneously one time a week. - fluconazole (DIFLUCAN) 150 mg tablet Take 1 tablet today, then a 2nd tablet in 72 hours, and 3rd tablet in another 72 hours. - amphetamine-dextroampheta mine XR (ADDERALL XR) 30 mg capsule Take 1 capsule by mouth every morning for 30 days. - methylphenidate (RITALIN) 20 mg tablet Take 1 tablet by mouth as needed for up to 30 days. Take at approx. 3-4 pm. - methylphenidate (RITALIN) 20 mg tablet Take 1 tablet by mouth as needed for up to 30 days. Take at approx. 3-4 pm. Patient should start on September 08, 2024. - amphetamine-dextroampheta mine XR (ADDERALL XR) 30 mg capsule Take 1 capsule by mouth every morning for 30 days. Patient should start on September 08, 2024. - amphet (more content not included)... Normal [facility] CNOVSPon 10-11-2024 CNOVSP Visit (SP) Office (HEMAWS) ----- KATIE FORDE ([id number]) 2000 F Date Time Provider Department 10/11/24 3:40 PM GOPAL YANEZ During your visit today, we recorded the following information about you: Temperature Pulse Blood pressure Weight 98.3 degrees 102/minute 114/77 134.7 kg Gopal Yanez MD 10/11/2024 4:21 PM Signed (Elements copied from my note dated January 13, 2023, have been reviewed and updated where appropriate, and all reflect current assessment and medical decision making from today's encounter, October 11, 2024) HISTORY OF PRESENT ILLNESS: Katie Forde is a 22 year old female here for follow up of leukocytosis, thrombocytosis. Labs reviewed, prior work up. No changes to report Referred back to me by [facility], she's been seen for out of body feelings, severe anxiety. They noted leukocytosis and referred back. We had a chat about what she is experiencing she does get migraines. We note thrombocytosis, her MPN was negative.. CLINICAL IMPRESSION: Leukocytosis, thrombocytosis, suspect reactive. ?some serotonin mediated issue RECOMMENDATION/PLAN: 1. Trial of baby aspirin one a day, she'll send a mychart in 1-2 weeks to let me know if she feels better. Written and verbal health teaching given to patient, patient verbalizes understanding and agrees with treatment plan. PAST MEDICAL HISTORY Diagnosis Date ADHD (attention deficit hyperactivity disorder) Fatty liver GERD (gastroesophageal reflux disease) Marfan's syndrome (HCC) VIRAL WARTS NOS 06/25/2008 resolved PAST SURGICAL [...] Social History Tobacco Use Smoking status: Former Current packs/day: 0.00 Types: Cigarettes Quit date: 2021 Years since quittin.2 Smokeless tobacco: Never Tobacco comments: Pt smoked 3 cigarettes daily x 2 months, quit 2021 Pt vapes Vaping Use Vaping status: current everyday user Substances: Nicotine, Flavoring Devices: Pre-filled or refillable cartridge Substance Use Topics Alcohol use: Not Currently Comment: occasional Drug use: Not Currently Types: Marijuana ALLERGIES: ALLERGIES No Known Allergies CURRENT OUTPATIENT MEDICATIONS: meclizine (ANTIVERT) 25 mg tab Take 1 tablet by mouth three times a day as needed (for dizziness.vertigo.). rizatriptan (MAXALT) 10 mg tablet Take 1 tablet by mouth as needed for migraine headache (see administration instructions). May repeat dose after 2 hours if needed. Maximum daily dose is 30 mg per day. dulaglutide (TRULICITY) 1.5 mg/0.5 mL pen injector Inject 1.5 mg subcutaneously one time a week. amphetamine-dextroampheta mine XR (ADDERALL XR) 30 mg capsule Take 1 capsule by mouth every morning for 30 days. Patient should start on October 08, 2024. methylphenidate (RITALIN) 20 mg tablet Take 1 tablet by mouth as needed for up to 30 days. Take at approx. 3-4 pm. Patient should start on October 08, 2024. triamcinolone acetonide (KENALOG) 0.1 % cream Apply to affected area two times a day as needed. May use for up to 14 days per rash omeprazole (PRILOSEC) 20 mg capsule Take 1 capsule by mouth once daily. On empty stomach at least 30 minutes before eating. buPROPion XL (WELLBUTRIN XL) 150 mg 24 hr tablet Take 1 tablet by mouth once daily. Norethindrone, Contraceptive, (SELMA) 0.35 mg tablet Take 1 tablet by mouth once daily. ondansetron orally disintegrating (ZOFRAN ODT) 4 mg disintegrating tablet Take 1 tablet by mouth every 8 hours as needed for nausea/vomiting. fluconazole (DIFLUCAN) 150 mg tablet Take 1 tablet today, then a 2nd tablet in 72 hours, and 3rd tablet in another 72 hours. (Patient not taking: Reported on 10/01/2024) amphetamine-dextroampheta mine XR (ADDERALL XR) 30 mg capsule Take 1 capsule by mouth every morning for 30 days. methylphenidate (RITALIN) 20 mg tablet Take 1 tablet by mouth as needed for up to 30 days. Take at approx. 3-4 pm. methylphenidate (RITALIN) 20 mg tablet Take 1 tablet by mouth as needed for up to 30 days. Take at approx. 3-4 pm. Patient should start on September 08, 2024. (Patient not taking: Reported on 10/01/2024) amphetamine-dextroampheta mine XR (ADDERALL XR) 30 mg capsule Take 1 capsule by mouth every mornin (more content not included)... Normal [facility] Pathology biopsy report Jeff (Tiss)on 10-11-2024 AP DISCLAIMER Normal [facility] Comment on above: Order Comment: Speci men Type: TISSUE SPECIMENOrdering Facility: [facility] Address: [address] [place] [address] Result Comment: Faby Sanchez Test (LDT) Disclaimer: Performance characteristics of immunohistochemical, immunofluorescent, and chromogenic in-situ hybridization tests have been determined by the performing laboratory within [facility]'s [facility] Shabazz Pathology and Laboratory Medicine Department ([facility], [facility], [facility], [facility], [facility], [facility], or [facility]) in a manner consistent with CLIA requirements. One or more of these tests may not have been cleared or approved by the FDA. [facility] is regulated under CLIA as qualified to perform high-complexity testing. These tests are used for clinical purposes. These should not be regarded as investigational or for research. Positive and negative controls stain appropriately. Performed By: #### 6 6121-5 ####[facility] [id number] [address] [place] CASE REPORT Normal [facility] Comment on above: Order Comment: Speci men Type: TISSUE SPECIMENOrdering Facility: [facility] Address: [address] [place] [address] Result Comment: Surg [facility] Pathology Report Case: [id number] Authorizing Provider: Pat Ferrer APRN.ELECTRIC STOVE MECHANIC Collected: 10/11/2024 10:59 AM Ordering Location: OB/Gynecology Received: 10/11/2024 11:44 AM Pathologist: Gabbie Mathews MD Specimen: Vulva, Biopsy Performed By: #### 6 6121-5 ####[facility] [id number] [address] [place] CLINICAL HISTORY vulvar irritation Normal [facility] Comment on above: Order Comment: Speci men Type: TISSUE SPECIMENOrdering Facility: [facility] Address: [address] [place] [address] Performed By: #### 6 6121-5 ####[facility] [id number] [address] DIAGNOSIS COMMENT Normal [facility] Comment on above: Order Comment: Speci men Type: TISSUE SPECIMENOrdering Facility: [facility] Address: [address] [place] [address] Result Comment: A PA S stain is negative for fungal organisms. Dr. Hawk Lovell (dermatopathology) reviewed this case and agrees with the diagnosis. Performed By: #### 6 6121-5 ####[facility] [id number] [place] FINAL DIAGNOSIS Normal [facility] Comment on above: Order Comment: Speci men Type: TISSUE SPECIMENOrdering Facility: [facility] Address: [address] [place] [address] Result Comment: Vulv a, biopsy: Lichen simplex chronicus; see comment. at 1526 EDT Performed By: #### 6 6121-5 ####[facility] [id number] [address] [place] FINAL PERFORMING LAB Normal [facility] Comment on above: Order Comment: Speci men Type: TISSUE SPECIMENOrdering Facility: [facility] Address: [address] [place] [address] Result Comment: Diag nostic interpretation performed at: [facility], [address] [place] [address] CLIA# [id number] Splunk Dashboard Developer: Steven Shelby MD Performed By: #### 6 6121-5 ####[facility]IA [id number] [place] [address] [place] GROSS DESCRIPTION Normal [facility] Comment on above: Order Comment: Speci men Type: TISSUE SPECIMENOrdering Facility: [facility] Address: [address] [place] [address] Result Comment: A. V ulva, Biopsy Received in formalin are two pieces of leon-white to red, soft tissue aggregating to 0.8 x 0.2 x 0.2 cm. Totally submitted in one cassette. Gross examination performed at [facility], [address] [place] [address] October 11, 2024 5:20 PM Performed By: #### 6 6121-5 ####[facility] [id number] [place] [address] [place] UA DIP,URINE HCG (POC)on Beta HCG ( test) Ql (U) Negative Negative [facility] Comment on above: Location:[facility], [address], [place], [address] Patient Accounts Specialist (POCT) Internal QC [place] [facility] Location:[facility], [address], [place], [address] [facility] POINT OF CARE [facility] CNPNon 10-07-2024 CNPN Telephone (INTMWS) ----- KATIE FORDE ([id number]) 2000 F Date Time Provider Department 10/07/24 KATE SILVA INTMWS During your visit today, we recorded the following information about you: Liza Post RN 10/07/2024 1:59 PM Signed Patient reports she was seen in [facility] ER on 09/29/24 AND 10/06/24 for the same symptoms. Yesterday ER told her she needs to see hematology b/c her WBC's are high and she needs to see neurology b/c she has tingling / numbness in her body. Reports she saw pcp on 10/01/24 and they discussed these symptoms. Asking if pcp can place consults for her to schedule with hematology and neurology? Please MyChart patient with reply. Kate Silva MD 10/07/2024 10:36 PM Signed Noted CBC in ER with WBC up to 16+. Also noted that ER doctor recommended hematology and neurology consults. Will touch base with manufacturing process engineer before sending formal order so they can make recommendations for labs to order prior as indicated. Consult order filed for neurology. Zohreh Fregoso LPN 10/08/2024 11:45 AM Signed My chart message sent to patient. WAYNE Pina Kathryn, MA 10/08/2024 3:18 PM Signed Pt read [email or web address] message. Ami Alberts MA Allergies As of Date: 10/07/2024 (No Known Allergies) Date Reviewed: 10/01/2024 Reviewed by: Annalee Jaffe LPN - Fully Assessed Reason for Visit: Patient Question [3261] Primary Visit Diagnosis:Numbness and tingling [R20.0, R20.2] Order(s):CONSULT TO NEUROLOGY [9019] Order #: [id number]: 1 FUTURE Prescriptions as of 10/08/2024 - meclizine (ANTIVERT) 25 mg tab Take 1 tablet by mouth three times a day as needed (for dizziness.vertigo.). - rizatriptan (MAXALT) 10 mg tablet Take 1 tablet by mouth as needed for migraine headache (see administration instructions). May repeat dose after 2 hours if needed. Maximum daily dose is 30 mg per day. - dulaglutide (TRULICITY) 1.5 mg/0.5 mL pen injector Inject 1.5 mg subcutaneously one time a week. - fluconazole (DIFLUCAN) 150 mg tablet Take 1 tablet today, then a 2nd tablet in 72 hours, and 3rd tablet in another 72 hours. - amphetamine-dextroampheta mine XR (ADDERALL XR) 30 mg capsule Take 1 capsule by mouth every morning for 30 days. - methylphenidate (RITALIN) 20 mg tablet Take 1 tablet by mouth as needed for up to 30 days. Take at approx. 3-4 pm. - methylphenidate (RITALIN) 20 mg tablet Take 1 tablet by mouth as needed for up to 30 days. Take at approx. 3-4 pm. Patient should start on September 08, 2024. - amphetamine-dextroampheta mine XR (ADDERALL XR) 30 mg capsule Take 1 capsule by mouth every morning for 30 days. Patient should start on September 08, 2024. - amphetamine-dextroampheta mine XR (ADDERALL XR) 30 mg capsule Take 1 capsule by mouth every morning for 30 days. Patient should start on October 08, 2024. - methylphenidate (RITALIN) 20 mg tablet Take 1 tablet by mouth as needed for up to 30 days. Take at approx. 3-4 pm. Patient should start on October 08, 2024. - triamcinolone acetonide (KENALOG) 0.1 % cream Apply to affected area two times a day as needed. May use for up to 14 days per rash - omeprazole (PRILOSEC) 20 mg capsule Take 1 capsule by mouth once daily. On empty stomach at least 30 minutes before eating. - amphetamine-dextroampheta mine XR (ADDERALL XR) 30 mg capsule Take 1 capsule by mouth every morning for 30 days. - methylphenidate (RITALIN) 20 mg tablet Take 1 tablet by mouth as needed for up to 30 days. Take at approx. 3-4 pm. - buPROPion XL (WELLBUTRIN XL) 150 mg 24 hr tablet Take 1 tablet by mouth once daily. - Blood-Glucose Meter 1 Device as directed. For once daily testing - blood sugar diagnostic (BLOOD GLUCOSE TEST) test strip Test blood sugar(s) one times daily. Dx: Type 2 DM - Controlled E11.9 Insulin: No - Lancets Test blood sugar(s) one times daily. Dx: Type 2 DM - Controlled E11.9 Insulin: No - Norethindrone, Contraceptive, (SELMA) 0.35 mg tablet Take 1 tablet by mouth once daily. - ondansetron orally disintegrating (ZOFRAN ODT) 4 mg disintegrating tablet Take 1 tablet by mouth every 8 hours as needed for nausea/vomiting. - CPAP/BIPAP/OTHER Type .CPAPSettings into a note to see current settings/supplies/DME information. 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 Normal [facility] Telephone (HEMMARIA LUISA) ----- JONATHANKATIE ([id number]) 2000 F Date Time Provider Department 10/07/24 GOPAL YANEZ During your visit today, we recorded the following information about you: Wolf LonnieMegha 10/07/2024 1:47 PM Signed Patient states she was at [facility] ED and they informed her to contact hematology for scheduling. Please review and advise. Patient had seen Dr. Burris 07/[address] Yanez 12/2022, 06/2023 Marcia Tilley RN 10/07/2024 2:33 PM Signed She is already established with Dr. Yanez. Please schedule a follow up visit with him. SHAJI Manrique Naomi 10/07/2024 2:49 PM Signed Spoke w pt and she is scheduled w Dr Eric for10/11. [place] Mccollum Allergies As of Date: 10/07/2024 (No Known Allergies) Date Reviewed: 10/01/2024 Reviewed by: Annalee Jaffe LPN - Fully Assessed Reason for Visit: Appointment [186] Prescriptions as of 10/07/2024 - meclizine (ANTIVERT) 25 mg tab Take 1 tablet by mouth three times a day as needed (for dizziness.vertigo.). - rizatriptan (MAXALT) 10 mg tablet Take 1 tablet by mouth as needed for migraine headache (see administration instructions). May repeat dose after 2 hours if needed. Maximum daily dose is 30 mg per day. - dulaglutide (TRULICITY) 1.5 mg/0.5 mL pen injector Inject 1.5 mg subcutaneously one time a week. - fluconazole (DIFLUCAN) 150 mg tablet Take 1 tablet today, then a 2nd tablet in 72 hours, and 3rd tablet in another 72 hours. - amphetamine-dextroampheta mine XR (ADDERALL XR) 30 mg capsule Take 1 capsule by mouth every morning for 30 days. - methylphenidate (RITALIN) 20 mg tablet Take 1 tablet by mouth as needed for up to 30 days. Take at approx. 3-4 pm. - methylphenidate (RITALIN) 20 mg tablet Take 1 tablet by mouth as needed for up to 30 days. Take at approx. 3-4 pm. Patient should start on September 08, 2024. - amphetamine-dextroampheta mine XR (ADDERALL XR) 30 mg capsule Take 1 capsule by mouth every morning for 30 days. Patient should start on September 08, 2024. - amphetamine-dextroampheta mine XR (ADDERALL XR) 30 mg capsule Take 1 capsule by mouth every morning for 30 days. Patient should start on October 08, 2024. - methylphenidate (RITALIN) 20 mg tablet Take 1 tablet by mouth as needed for up to 30 days. Take at approx. 3-4 pm. Patient should start on October 08, 2024. - triamcinolone acetonide (KENALOG) 0.1 % cream Apply to affected area two times a day as needed. May use for up to 14 days per rash - omeprazole (PRILOSEC) 20 mg capsule Take 1 capsule by mouth once daily. On empty stomach at least 30 minutes before eating. - amphetamine-dextroampheta mine XR (ADDERALL XR) 30 mg capsule Take 1 capsule by mouth every morning for 30 days. - methylphenidate (RITALIN) 20 mg tablet Take 1 tablet by mouth as needed for up to 30 days. Take at approx. 3-4 pm. - buPROPion XL (WELLBUTRIN XL) 150 mg 24 hr tablet Take 1 tablet by mouth once daily. - Blood-Glucose Meter 1 Device as directed. For once daily testing - blood sugar diagnostic (BLOOD GLUCOSE TEST) test strip Test blood sugar(s) one times daily. Dx: Type 2 DM - Controlled E11.9 Insulin: No - Lancets Test blood sugar(s) one times daily. Dx: Type 2 DM - Controlled E11.9 Insulin: No - Norethindrone, Contraceptive, (SELMA) 0.35 mg tablet Take 1 tablet by mouth once daily. - ondansetron orally disintegrating (ZOFRAN ODT) 4 mg disintegrating tablet Take 1 tablet by mouth every 8 hours as needed for nausea/vomiting. - CPAP/BIPAP/OTHER Type .CPAPSettings into a note to see current settings/supplies/DME information. 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.1] 12/05/2015 Migraine without status migrainosus, not intrac*04/22/2016 Oppositional defiant disorder [F91.3] 02/03/2017 BMI (body mass index), pediatric, 85% to less t*09/16/2017 12/15/2023 BMI (body mass index), pediatric, greater than *04/13/2019 12/15/2023 Lab test positive for detection of COVID-19 vir*07/04/2020 Anxiety [F41.9] 03/12/2022 Pain in right foot [M79.671] 03/12/2022 Obesity, Class III, BMI >= 40 [E66.01] 09/30/2022 Obesity, Class II, BMI 35-39.9 [E66.812] 01/20/2023 12/15/2023 Type 2 diabetes mellitus without complication, *01/27/2024 Fatty liver [K76.0] 01/27/2024 PVC (premature ventricular contraction) [I49.3] 08/30/2024 Encounter Status:Closed by RENO MCCOLLUM on 10/07/24 [facility] 12 Lead EKGon 10-06-2024 12 Lead EKG [facility] Cardiovascular Services [address] [place] [address] 12 Lead EKG 10/06/242039 MR#: [id number] Acct: [id number] Name: KATIE FORDE Rep #: [id number] : 2000 From: Tom Corey MD Attending Dr: Status: DEP ER Ordering Dr: Mike Feldman DO Date: 10/06/24 Location: ED Sex: F C Admitted: Test Reason : DYSRHYTHMIA Blood Pressure : */* mmHG Vent. Rate : 92 BPM Atrial Rate : 92 BPM P-R Int : 164 ms QRS Dur : 76 ms QT Int : 358 ms P-R-T Axes : 46 32 64 degrees QTcB Int : 442 ms Normal sinus rhythm Normal ECG Confirmed by TOM COREY MD ([id number]), map editor LOS ZARATE ([id number]) on 10/07/2024 8:41:43 AM Referred By: Confirmed By: TOM COREY MD 10/07/24840 Date Tom Corey MD CC: Dr. Kate Silva MD; Dr. Mike Feldman DO Signed Normal [facility] Absolute neutrophil countOrd ered By: Mike Feldman on 10-06-2024 Neutrophils (Bld) [#/Vol] 12.1 10*3/uL High 2.0-7.7 [facility] Anion gap in Serum or Plasma Ordered By: Mike Feldman on 10-06-2024 Anion gap [Moles/Vol] 13 mmol/L 11-11 [facility] BUN/creatinine ratioOrdered By: Mike Feldman on 10-06-2024 Urea nitrogen/Creatinine [Mass ratio] 12.8 mg/mg - [facility] Basic Metabolic Profile (BMP )on 10-06-2024 BUN/CRE 12.8 RATIO Normal 04-18 [facility] Comment on above: Performed By: #### L 500.2500, L501.9520, L100.0100 #### [facility] Laboratory [address] [place], [place], [address] Calcium [Mass/Vol] 9.2 mg/dL Normal 7.6-11.[address] [facility] Comment on above: Performed By: #### L 500.2500, L501.9520, L100.0100 #### [facility] [address] [place], [address] Chloride [Moles/Vol] 102 mmol/L Normal 98-108 [facility] Comment on above: Performed By: #### L 500.2500, L501.9520, L100.0100 #### [facility] [address] [place], [address] CO2 [Moles/Vol] 23.1 mmol/L Normal 21.0-32.0 [facility] Comment on above: Performed By: #### L 500.2500, L501.9520, L100.0100 #### [facility] [address] [place], [address] Creatinine [Mass/Vol] 0.78 mg/dL Normal 0.70-1.20 [facility] Comment on above: Performed By: #### L 500.2500, L501.9520, L100.0100 #### [facility] [address] [place], [address] ECRCL 172.04 ml/min Normal 50-250 [facility] Comment on above: Performed By: #### L 500.2500, L501.9520, L100.0100 #### [facility] [address] [place], [address] GAP 13 Normal 5-15 [facility] Comment on above: Performed By: #### L 500.2500, L501.9520, L100.0100 #### [facility] [address] [place], [address] GFR/1.73 sq M.predicted among non-blacks MDRD (S/P/Bld) [Vol rate/Area] 109 mL/min/{1.73_m2} Normal >60 [facility] Comment on above: Result Comment: mL/m in/1.73m2 CKD-EPI Creatinine Equation (2020) Performed By: #### L 500.2500, L501.9520, L100.0100 #### [facility] [address] [place], [address] Glucose [Mass/Vol] 96 mg/dL Normal 70-[address] [facility] Comment on above: Performed By: #### L 500.2500, L501.9520, L100.0100 #### [facility] [address] [place], [address] Potassium [Moles/Vol] 3.9 mmol/L Normal 3.3-5.1 [facility] Comment on above: Performed By: #### L 500.2500, L501.9520, L100.0100 #### [facility] [address] [place], [address] Sodium [Moles/Vol] 138 mmol/L Normal 133-[address] [facility] Comment on above: Performed By: #### L 500.2500, L501.9520, L100.0100 #### [facility] [address] [place], [address] Urea nitrogen [Mass/Vol] 10 mg/dL Normal 4-19 [facility] Comment on above: Performed By: #### L 500.2500, L501.9520, L100.0100 #### [facility] [address] [place], [address] Basophil percentageOrdered B y: Mike Francia on 10-06-2024 Basophils/100 WBC (Bld) 0.5 % 0-1 [facility] Brain/Head without Contrasto n 10-06-2024 Brain/Head without Contrast [facility] Imaging Services [address] [place] [address] Brain/Head without Contrast MR#: [id number] Acct: [id number] Name: KATIE FORDE Rep #: [id number] : 2000 23 From: Colt escobar MD PCP: Dr. Kate Silva MD Status: REG ER Study: Brain/Head without Contrast Date of Exam: 03/24 Exam# [id number] Ordering Dr: Mike Feldman DO PROCEDURE: BRAIN/HEAD WITHOUT CONTRAST 10/06/2024 REASON FOR EXAM: PARESTHESIAS TECHNIQUE: Head CT without intravenous contrast. Coronal and Sagittal reconstruction series were provided. One or more dose reduction techniques were used (e.g., Automated exposure control, adjustment of the mA and/or kV according to patient size, use of iterative reconstruction technique. COMPARISON: None FINDINGS: * ACUTE: No acute infarct or hemorrhage. No mass effect or herniation. * BRAIN PARENCHYMA: Signal intensities are within normal limits for age. * VENTRICLES/EXTRA-AXIAL SPACES: No hydrocephalus or extra-axial fluid collections. * EXTRACRANIAL STRUCTURES: Visualized osseous structures are normal. Soft tissues are normal. CT/Brain/Head without Contrast IMPRESSION: No acute intracranial abnormality. Reading [facility]: [facility] CC: Dr. Kate Silva MD; Dr. Mike Feldman DO [employer]: Signed Normal [facility] CBC W/Diff, Automatedon 04-0 Absolute Lymph 3.60 X10 3/uL Normal 0.83-4.51 [facility] Comment on above: Performed By: #### L 500.2500, L501.9520, L100.0100 #### [facility] [address] [place], [address] Absolute Neut 12.1 X10 3/uL High 2.0-7.7 [facility] Comment on above: Performed By: #### L 500.2500, L501.9520, L100.0100 #### [facility] [address] [place], [address] Basophils/100 WBC (Bld) 0.5 % Normal 0-1 [facility] Comment on above: Performed By: #### L 500.2500, L501.9520, L100.0100 #### [facility] [address] [place], [address] Eosinophils/100 WBC (Bld) 0.4 % Normal 0-5 [facility] Comment on above: Performed By: #### L 500.2500, L501.9520, L100.0100 #### [facility] [address] [place], [address] Erythrocyte distribution width (RBC) [Ratio] 12.1 % Normal 11.6-14.6 [facility] Comment on above: Performed By: #### L 500.2500, L501.9520, L100.0100 #### [facility] [address] [place], [address] Hematocrit (Bld) [Volume fraction] 42.9 % Normal 37-47 [facility] Comment on above: Performed By: #### L 500.2500, L501.9520, L100.0100 #### [facility] [address] [place], [address] Hemoglobin (Bld) [Mass/Vol] 14.7 g/dL Normal 12.0-15.0 [facility] Comment on above: Performed By: #### L 500.2500, L501.9520, L100.0100 #### [facility] [address] [place], [address] IG% 0.400 Normal 0.0-0.9 [facility] Comment on above: Result Comment: IG% - Immature Granulocytes (promyelocytes, myelocytes and metamyelocytes) > 1% indicates that a LEFT SHIFT is Present. Performed By: #### L 500.2500, L501.9520, L100.0100 #### [facility] [address] [place], [address] Lymphocytes/100 WBC (Bld) 21.6 % Normal 19-41 [facility] Comment on above: Performed By: #### L 500.2500, L501.9520, L100.0100 #### [facility] [address] [place], [address] MCH (RBC) [Entitic mass] 30.2 pg Normal 27.0-32.0 [facility] Comment on above: Performed By: #### L 500.2500, L501.9520, L100.0100 #### [facility] [address] [place], [address] MCHC (RBC) [Mass/Vol] 34.3 g/dL Normal 32-36 [facility] Comment on above: Performed By: #### L 500.2500, L501.9520, L100.0100 #### [facility] [address] [place], [address] MCV (RBC) [Entitic vol] 88.3 fL Normal 81-99 [facility] Comment on above: Performed By: #### L 500.2500, L501.9520, L100.0100 #### [facility] [address] [place], [address] Monocytes/100 WBC (Bld) 4.6 % Normal 0-10 [facility] Comment on above: Performed By: #### L 500.2500, L501.9520, L100.0100 #### [facility] [address] [place], [address] Neutrophils/100 WBC (Bld) 72.5 % High 47-70 [facility] Comment on above: Performed By: #### L 500.2500, L501.9520, L100.0100 #### [facility] [address] [place], [address] Nucleated RBC (Bld) [#/Vol] 0 10*3/uL Normal 0-5 [facility] Comment on above: Performed By: #### L 500.2500, L501.9520, L100.0100 #### [facility] [address] [place], [address] Platelet mean volume (Bld) [Entitic vol] 9.7 fL Normal 6.2-12.0 [facility] Comment on above: Performed By: #### L 500.2500, L501.9520, L100.0100 #### [facility] [address] [place], [address] Platelets (Bld) [#/Vol] 512 10*3/uL High 150-450 [facility] Comment on above: Performed By: #### L 500.2500, L501.9520, L100.0100 #### [facility] [address] [place], [address] RBC (Bld) [#/Vol] 4.86 10*6/uL Normal 4.2-5.4 [facility] Comment on above: Performed By: #### L 500.2500, L501.9520, L100.0100 #### [facility] [address] [place], [address] RDW SD 39.6 fl Normal 35.1-43.9 [facility] Comment on above: Performed By: #### L 500.2500, L501.9520, L100.0100 #### [facility] [address] [place], [address] WBC (Bld) [#/Vol] 16.7 10*3/uL High 4.4-11.0 [facility] Comment on above: Performed By: #### L 500.2500, L501.9520, L100.0100 #### [facility] [address] [place], [address] Carbon dioxide, total [Moles /volume] in Central venous bloodOrdered By: Mike Ambrosio 10-06-2024 CO2 [Moles/Vol] 23.1 mmol/L 21.0-32.0 [facility] Chloride assayOrdered By: Jasiel Feldman on 10-06-2024 Chloride [Moles/Vol] 102 mmol/L 98-108 [facility] Emergency Department Summary on 10-06-2024 Emergency Department Summary [facility] Medical Records Department [address] [place] [address] Emergency Department Summary 10/06/24 MR#: [id number] Acct: [id number] Name: KATIE FORDE Rep #: [id number] : 2000 From: Mike Caballero PCP: Dr. Kate Silva MD Status:REG ER Location: ED HPI History of Present Illness Chief Complaint: General Illness Informant: patient and parent Narrative Narrative: Presents to the ED for evaluation of recurrent symptoms. Here with mother reports for the last month intermittent lightheaded symptoms is worsening. No chest pains no shortness of breath. She states will have occasional abdominal discomfort and nausea. She has had generalized paresthesias however the day noted numbness on the left side of her body including her torso. There is no weakness. Denies headache or dizziness. She reports she was here 7 days ago and evaluated. She said multiple testing with EKGs and lab work. No CT brain. Mother patient denies any family history of multiple sclerosis. She reports heart rate normally 90s to 102 recently noticed in the 60s. Follow-up with her PCP 2 days after her visit she was put on Antivert for viral vertigo. She denies any dizzy spinning sensations. She states she has the feelings of depersonalization. Prior to a month ago no similar symptoms. She reports only thing total lab work with white count that was elevated. Denies cough or denies urinary symptoms. Prior similar symptoms: [facility] Medical History Depersonalization disorder Fatty liver Smoker Marfan syndrome ADHD (attention deficit hyperactivity disorder) Retinal detachment, old, total/subtotal Femur fracture, right Home Medications ???Medication ???Instructions ???Recorded ???Last Taken ???Type dextroamphetamine-ampheta mine 30 30 mg PO DAILY 04/03/15 Unknown Hi story mg tablet (Adderall) methylphenidate HCl 20 mg tablet 20 mg PO DAILY 04/03/15 Unknown Hi story (Ritalin) medroxyprogesterone 10 mg tablet 10 mg PO DAILY 12/02/23 11/30/23 H istory vit no.95-ferrous 1 tab PO DAILY 12/02/23 Unknown Hi story fumarate 28 mg-folic acid 800 mcg tablet () dextroamphetamine-ampheta mine ER 1 cap PO 10/06/24 Unknown History 30 mg 24hr capsule,extend release dulaglutide 1.5 mg/0.5 mL 1.5 mg subcut QWEEK 10/06/24 Unkno wn History subcutaneous pen injector (Trulicity) norethindrone (contraceptive) 0.35 0.35 mg PO DAILY 10/06/24 Unknow n History mg tablet (Deblitane) Allergy/AdvReac Type Severity Reaction Status Date / Time No Known Allergies Allergy Verified 10/06/24 19:45 Surgical History History of liver biopsy Social History Smoking Status: Light Smoker (<10/day) ROS ROS ED Constitutional Constitutional ED: Denies chills, fever(s) or sweats ENT ENT ED: Denies sore throat Cardiovascular Cardiovascular: Reports other Details: Lightheaded symptoms. ; Denies chest pain, leg edema, palpitations or racing heartbeat Respiratory/Chest Respiratory/Chest: Denies cough, dyspnea or dyspnea on exertion Gastrointestinal Gastrointestinal: Reports nausea; Denies abdominal pain, diarrhea or vomiting Genitourinary Genitourinary ED: Denies dysuria, hematuria or urinary frequency Musculoskeletal Musculoskeletal: Denies back pain, extremity pain or neck pain Integumentary Denies rash or wounds Neurologic Neurologic: Reports paresthesias; Denies headache(s) or weakness EXAM Physical Exam Const Vital Signs: 10/06/24 19:45 10/06/24 20:12 10/06/24 21:35 Temperature 97 F L Temperature Source Temporal Pulse Rate 102 H 90 Respiratory Rate 20 H 25 H Respiratory Effort Normal Respiratory Pattern Normal Blood Pressure 143/83 H 130/76 H Blood Pressure Mean 103 94 Pulse Ox 97 96 Oxygen Delivery Method Room Air Room Air Positive well nourished and well developed General Appearance ED: well developed and NAD HEENT Reports moist mucous membranes normocephalic and atraumatic Eyes General Eye ED: Yes normal appearance of both eyes Neck full ROM Chest Wall Chest: Negative for tenderness Resp normal respiratory effort and normal air movement Effort and Inspection: symmetric chest movement; Negative for respiratory distress Cardio regular rate, regular rhythm and no murmurs Peripheral Pulses: pulses 2+ throughout GI normal to inspection, nondistended, normoactive bowel sounds and non-tender Palpation: Negative for guarding or rebound tenderness present Extremity normal to inspection General Extremety ED: Negative for edema or tenderness General Extremity: Negative for edema Neuro oriented x3, CN's (more content not included)... Normal [facility] Eosinophil percentageOrdered By: Mike Feldman on 10-06-2024 Eosinophils/100 WBC (Bld) 0.4 % 0-5 [facility] Erythrocyte distribution wid th (RBC) [Ratio]Ordered By: Mike Feldman on 10-06-2024 Erythrocyte distribution width (RBC) [Entitic vol] 39.6 fL 35.1-43.9 [facility] Erythrocyte distribution wid th ratioOrdered By: Mike Feldman on 10-06-2024 Erythrocyte distribution width (RBC) [Ratio] 12.1 % 11.6-14.6 [facility] Estimation of creatinine nicole aranceOrdered By: Mike Feldman on 10-06-2024 Estimated Creatinine Clearance Calc 172.04 ml/min 50-250 [facility] GFR/1.73 sq M.predicted tiesha g non-blacks MDRD (S/P/Bld) [Vol rate/Area]Ordered By: Mike Feldman on 10-06-2024 Estimated GFR (MDRD) Non-Af Amer 109 >60 [facility] Comment on above: mL/min/1.73m2 CKD-EP I Creatinine Equation (2020) Hematocrit Auto (Bld) [Volum e fraction]Ordered By: Mike Feldman on 10-06-2024 Hematocrit (Bld) [Volume fraction] 42.9 % 37-47 [facility] Hemoglobin measurementOrdere d By: Mike Feldman on 10-06-2024 Hemoglobin (Bld) [Mass/Vol] 14.7 g/dL 12.0-15.0 [facility] Immature granulocytes/100 WB C Auto (Bld)Ordered By: Mike Feldman on 10-06-2024 Immature granulocytes/100 WBC (Bld) 0.400 % 0.0-0.9 [facility] Comment on above: IG% - Immature Granu locytes (promyelocytes, myelocytes and metamyelocytes) > 1% indicates that a LEFT SHIFT is Present. Lymphocytes Auto (Unsp spec) [#/Vol]Ordered By: Mike Feldman on 10-06-2024 Lymphocytes (Bld) [#/Vol] 3.60 10*3/uL 0.83-4.51 [facility] Lymphocytes/100 WBC Auto (Un sp spec)Ordered By: Mike Feldman on 10-06-2024 Lymphocytes/100 WBC (Bld) 21.6 % 19-41 [facility] MCV (mean corpuscular volume ) determinationOrdered By: Mike Feldman on 10-06-2024 MCV (RBC) [Entitic vol] 88.3 fL 81-99 [facility] Mean corpuscular hemoglobin (MCH) determinationOrdered By: Mike Feldman on 10-06-2024 MCH (RBC) [Entitic mass] 30.2 pg 27.0-32.0 [facility] Mean corpuscular hemoglobin concentration (MCHC) determinationOrdered By: Mike Feldman on 10-06-2024 MCHC (RBC) [Mass/Vol] 34.3 g/dL 32-36 [facility] Mean platelet volume determi nationOrdered By: Mike Feldman on 10-06-2024 Platelet mean volume (Bld) [Entitic vol] 9.7 fL 6.2-12.0 [facility] Monocyte percentageOrdered B y: Mike Feldman on 10-06-2024 Monocytes/100 WBC (Bld) 4.6 % 0-10 [facility] Neutrophil percentageOrdered By: Mike Feldman on 10-06-2024 Neutrophils/100 WBC (Bld) 72.5 % High 47-70 [facility] Nucleated red blood cell per centageOrdered By: Mike Feldman on 10-06-2024 Nucleated RBC/100 WBC (Bld) [Ratio] 0 % 0-5 [facility] Platelet countOrdered By: Jasiel Feldman on 10-06-2024 Platelets (Bld) [#/Vol] 512 10*3/uL High 150-450 [facility] Potassium (Unsp spec) [Mass/ Vol]Ordered By: Mike Feldman on 10-06-2024 Potassium [Moles/Vol] 3.9 mmol/L 3.3-5.1 [facility] RBC Auto (Bld) [#/Vol]Ordere d By: Mike Feldman on 10-06-2024 RBC (Bld) [#/Vol] 4.86 10*6/uL 4.2-5.4 [facility] Serum creatinine measurement (mass/volume)Ordered By: Mike Feldman on 10-06-2024 Creatinine [Mass/Vol] 0.78 mg/dL 0.70-1.20 [facility] Serum glucose measurement (m ass/volume)Ordered By: Mike Feldman on 10-06-2024 Glucose [Mass/Vol] 96 mg/dL 70-[address] [facility] Serum or plasma calcium lawrence urement (mass/volume)Ordered By: Mike Feldman on 10-06-2024 Calcium [Mass/Vol] 9.2 mg/dL 7.6-11.[address] [facility] Serum or plasma urea nitroge n measurement (mass/volume)Ordered By: Mike Feldman on 10-06-2024 Urea nitrogen [Mass/Vol] 10 mg/dL 4-19 [facility] Sodium levelOrdered By: Mike Feldman on 10-06-2024 Sodium [Moles/Vol] 138 mmol/L 133-[address] [facility] TSH DL <= 0.005 mIU/L QnOrde red By: Mike Feldman on 10-06-2024 Thyroid Stimulating Hormone (TSH) 0.571 uIU/mL 0.300-4.200 [facility] Thyroid Stim Hormone (TSH)on 10-06-2024 TSH 0.571 uIU/mL Normal 0.300-4.200 [facility] Comment on above: Performed By: #### L 500.2500, L501.9520, L100.0100 #### [facility] [address] [place], [address] White blood cell (WBC) count Ordered By: Mike Feldman on 10-06-2024 WBC (Bld) [#/Vol] 16.7 10*3/uL High 4.4-11.0 [facility] 10-01-2024 [facility] Office Visit (INTMWS ) ----- KATIE FORDE ([id number]) 2000 F Date Time Provider Department 10/01/24 10:00 AM KATE SILVA INTMWS During your visit today, we recorded the following information about you: Pulse Respiration Blood pressure Weight 64/minute 14/minute 110/64 133.2 kg Kate Silva MD 10/01/2024 11:22 AM Signed This note was created using GMEX. Subjective Katie Forde is a 23 year old female. Patient presents with: weakness, body tingles, light headed , started 2 weeks ago SUBJECTIVE: Katie Forde is a 23 year old year old lady here today for follow up appointment for review of medical conditions. Katie is a 23-year-old female, with a history of sleep apnea, presenting with lightheadedness and fatigue. Katie reports experiencing lightheadedness and fatigue for the past 2 weeks, with symptoms worsening at night. She describes the sensation as feeling like skydiving when lying down, which has led her to sleep in her mother's room due to fear. She denies any sense of room spinning but describes the feeling as weird and scary. The lightheadedness is also triggered when she gets up too fast and is worse when lying down. She notes that sleeping at an angle improves the symptoms. She has been using a CPAP machine for sleep apnea. She also reports experiencing depersonalization regularly for the past 2 weeks, stating, I don't feel like I'm actually in my body right now. She attributes this to sleep deprivation, as the lightheadedness keeps her awake at night. She also reports ear pain, although previous examinations have shown no abnormalities. She visited the ER recently due to these symptoms, where she was diagnosed with weakness. Her blood pressure was 145/84 mmHg, and her heart rate was 97 bpm. An EKG showed normal sinus rhythm with a rate of 84 bpm. A urinalysis showed no infection, and a metabolic panel was unremarkable. A chest X-ray was also unremarkable. Her white blood cell count was elevated at 15,000/?L, and her platelet count was elevated at 503,000/?L. She was told she was dehydrated and needed to drink more electrolytes. She denies any issues with her kidneys. She has tried tkgn-des-fotsdzc Dramamine for the lightheadedness but reports that it did not help. She also reports a history of yeast infections and is scheduled for a vulvar biopsy on the . PAST MEDICAL HISTORY Diagnosis Date ADHD (attention deficit hyperactivity disorder) Fatty liver GERD (gastroesophageal reflux disease) Marfan's syndrome VIRAL WARTS NOS 06/25/2008 resolved Current Outpatient Medications Medication Sig dulaglutide (TRULICITY) 1.5 mg/0.5 mL pen injector Inject 1.5 mg subcutaneously one time a week. amphetamine-dextroampheta mine XR (ADDERALL XR) 30 mg capsule Take 1 capsule by mouth every morning for 30 days. Patient should start on September 08, 2024. [START ON 10/08/2024] methylphenidate (RITALIN) 20 mg tablet Take 1 tablet by mouth as needed for up to 30 days. Take at approx. 3-4 pm. Patient should start on October 08, 2024. triamcinolone acetonide (KENALOG) 0.1 % cream Apply to affected area two times a day as needed. May use for up to 14 days per rash omeprazole (PRILOSEC) 20 mg capsule Take 1 capsule by mouth once daily. On empty stomach at least 30 minutes before eating. buPROPion XL (WELLBUTRIN XL) 150 mg 24 hr tablet Take 1 tablet by mouth once daily. Blood-Glucose Meter 1 Device as directed. For once daily testing blood sugar diagnostic (BLOOD GLUCOSE TEST) test strip Test blood sugar(s) one times daily. Dx: Type 2 DM - Controlled E11.9 Insulin: No Lancets Test blood sugar(s) one times daily. Dx: Type 2 DM - Controlled E11.9 Insulin: No Norethindrone, Contraceptive, (SELMA) 0.35 mg tablet Take 1 tablet by mouth once daily. ondansetron orally disintegrating (ZOFRAN ODT) 4 mg disintegrating tablet Take 1 tablet by mouth every 8 hours as needed for nausea/vomiting. CPAP/BIPAP/OTHER Type .CPAPSettings into a note to see current settings/supplies/DME information. meclizine (ANTIVERT) 25 mg tab Take 1 tablet by mouth three times a day as needed (for dizziness.vertigo.). rizatriptan (MAXALT) 10 mg tablet Take 1 tablet by mouth as needed for migraine headache (see administration instructions). May repeat dose after 2 hours if needed. Maximum daily dose is 30 mg per day. fluconazole (DIFLUCAN) 150 mg tablet Take 1 tablet today, then a 2nd tablet in 72 hours, and 3rd tablet in another 72 hours. (Patient not taking: Reported on 10/01/2024) amphetamine-dextroampheta mine XR (ADDERALL XR) 30 mg capsule Take 1 capsule by mouth every morning for 30 days. methylphenidate (RITALIN) 20 mg tablet Take 1 tablet by mouth as needed for up to 30 days. Take at approx. 3-4 pm. methylphenidate (RITALIN) 20 mg tablet Take 1 tablet by mouth as needed for up to 30 (more content not included)... Normal [facility] 12 Lead EKGon 09-29-2024 12 Lead EKG [facility] Cardiovascular Services [address] [place] [address] 12 Lead EKG 09/29/24 2040 MR#: [id number] Acct: [id number] Name: KATIE FORDE Rep #: [id number] : 2000 From: Tom Corey MD Attending Dr: Status: DEP ER Ordering Dr: Russell Agarwal Date: 09/29/24 Location: ED Sex: F C Admitted: Test Reason : WEAKNESS Blood Pressure : */* mmHG Vent. Rate : 84 BPM Atrial Rate : 84 BPM P-R Int : 158 ms QRS Dur : 78 ms QT Int : 382 ms P-R-T Axes : 44 34 57 degrees QTcB Int : 451 ms Normal sinus rhythm Normal ECG Confirmed by CARMEN MEDRANO, TOM ([id number]), map editor BRANDAN VAZQUEZ ([id number]) on 10/01/2024 9:23:01 AM Referred By: HERBER Confirmed By: TOM COREY MD 10/01/24922 Date Tom Corey MD CC: DUNIA Agarwal; Dr. Kaet Silva MD; Dr. Shiv Roper, DO Signed Normal [facility] Absolute neutrophil countOrd ered By: Russell Agarwal on 09-29-2024 Neutrophils (Bld) [#/Vol] 10.0 10*3/uL High 2.0-7.7 [facility] Anion gap in Serum or Plasma Ordered By: Russell Agarwal on 09-29-2024 Anion gap [Moles/Vol] 12 mmol/L 5-15 [facility] BUN/creatinine ratioOrdered By: Russell Agarwal on 09-29-2024 Urea nitrogen/Creatinine [Mass ratio] 9.7 mg/mg Low 10-20 [facility] Basophil percentageOrdered B y: Russell Agarwal on 09-29-2024 Basophils/100 WBC (Bld) 0.6 % 0-1 [facility] Bilirubin Test strip Ql (U)O rdered By: Shiv Roper on 09-29-2024 Bilirubin Ql (U) Negative Negative [facility] Bilirubin, totalOrdered By: Russell Agarwal on 09-29-2024 Bilirubin [Mass/Vol] 0.33 mg/dL 0.00-1.30 [facility] CBC W/Diff, Automatedon Absolute Lymph 3.89 X10 3/uL Normal 0.83-4.51 [facility] Comment on above: Performed By: #### L 501.2450, L100.0100, L500.4050 ####[facility] [address] [place], [place], [id number] Absolute Neut 10.0 X10 3/uL High 2.0-7.7 [facility] Comment on above: Performed By: #### L 501.2450, L100.0100, L500.4050 ####[facility] [address] [place], [address] Basophils/100 WBC (Bld) 0.6 % Normal 0-1 [facility] Comment on above: Performed By: #### L 501.2450, L100.0100, L500.4050 ####[facility] [address] [place], [address] Eosinophils/100 WBC (Bld) 0.5 % Normal 0-5 [facility] Comment on above: Performed By: #### L 501.2450, L100.0100, L500.4050 ####[facility] [address] [place], [address] Erythrocyte distribution width (RBC) [Ratio] 12.3 % Normal 11.6-14.6 [facility] Comment on above: Performed By: #### L 501.2450, L100.0100, L500.4050 ####[facility] [address] [place], [address] Hematocrit (Bld) [Volume fraction] 42.1 % Normal 37-47 [facility] Comment on above: Performed By: #### L 501.2450, L100.0100, L500.4050 ####[facility] [address] [place], [address] Hemoglobin (Bld) [Mass/Vol] 14.6 g/dL Normal 12.0-15.0 [facility] Comment on above: Performed By: #### L 501.2450, L100.0100, L500.4050 ####[facility] [address] [place], [address] IG% 0.500 Normal 0.0-0.9 [facility] Comment on above: Result Comment: IG% - Immature Granulocytes (promyelocytes, myelocytes and metamyelocytes) > 1% indicates that a LEFT SHIFT is Present. Performed By: #### L 501.2450, L100.0100, L500.4050 ####[facility] [address] [place], [address] Lymphocytes/100 WBC (Bld) 25.9 % Normal 19-41 [facility] Comment on above: Performed By: #### L 501.2450, L100.0100, L500.4050 ####[facility] [address] [place], [address] MCH (RBC) [Entitic mass] 30.2 pg Normal 27.0-32.0 [facility] Comment on above: Performed By: #### L 501.2450, L100.0100, L500.4050 ####[facility] [address] [place], [address] MCHC (RBC) [Mass/Vol] 34.7 g/dL Normal 32-36 [facility] Comment on above: Performed By: #### L 501.2450, L100.0100, L500.4050 ####[facility] [address] [place], [address] MCV (RBC) [Entitic vol] 87.2 fL Normal 81-99 [facility] Comment on above: Performed By: #### L 501.2450, L100.0100, L500.4050 ####[facility] [address] [place], [address] Monocytes/100 WBC (Bld) 5.8 % Normal 0-10 [facility] Comment on above: Performed By: #### L 501.2450, L100.0100, L500.4050 ####[facility] [address] [place], [address] Neutrophils/100 WBC (Bld) 66.7 % Normal 47-70 [facility] Comment on above: Performed By: #### L 501.2450, L100.0100, L500.4050 ####[facility] [address] [place], [address] Nucleated RBC (Bld) [#/Vol] 0 10*3/uL Normal 0-5 [facility] Comment on above: Performed By: #### L 501.2450, L100.0100, L500.4050 ####[facility] [address] [place], [address] Platelet mean volume (Bld) [Entitic vol] 9.4 fL Normal 6.2-12.0 [facility] Comment on above: Performed By: #### L 501.2450, L100.0100, L500.4050 ####[facility] [address] [place], [address] Platelets (Bld) [#/Vol] 503 10*3/uL High 150-450 [facility] Comment on above: Performed By: #### L 501.2450, L100.0100, L500.4050 ####[facility] [address] [place], [address] RBC (Bld) [#/Vol] 4.83 10*6/uL Normal 4.2-5.4 [facility] Comment on above: Performed By: #### L 501.2450, L100.0100, L500.4050 ####[facility] [address] [place], [address] RDW SD 39.3 fl Normal 35.1-43.9 [facility] Comment on above: Performed By: #### L 501.2450, L100.0100, L500.4050 ####[facility] [address] [place], [address] WBC (Bld) [#/Vol] 15.0 10*3/uL High 4.4-11.0 [facility] Comment on above: Performed By: #### L 501.2450, L100.0100, L500.4050 ####[facility] [address] [place], [address] Carbon dioxide, total [Moles /volume] in Central venous bloodOrdered By: Russell Agarwal on 09-29-2024 CO2 [Moles/Vol] 23.3 mmol/L 21.0-32.0 [facility] Chest 1 View (Portable)on Chest 1 View (Portable) [facility] Imaging Services [address] [place] [address] Chest 1 View (Portable) MR#: [id number] Acct: [id number] Name: KATIE FORDE Rep #: [id number] : 2000 F 23 From: Babak Cortes DO PCP: Dr. Kate Silva MD Status: REG ER Study: Chest 1 View (Portable) Date of Exam: 09/29/24 Exam# [id number] Ordering Dr: Shiv Roper DO PROCEDURE: CHEST 1 VIEW (PORTABLE) 09/29/2024 REASON FOR EXAM: LIGHTHEADEDNESS TECHNIQUE: Frontal view of the chest. COMPARISON: Chest radiograph dated 04/11/2022. FINDINGS: Hardware: None Heart: The heart size is normal. Lungs: The lungs are clear. Bones: The bones are unremarkable. Other: RAD/Chest 1 View (Portable) IMPRESSION: No Acute Findings. Reading Location: [facility] CC: Dr. Kate Silva MD; Dr. Shiv Roper DO [facility] [employer]: Signed Normal [facility] Chloride assayOrdered By: Aditya Agarwal on 09-29-2024 Chloride [Moles/Vol] 102 mmol/L 98-108 [facility] Comprehensive Metabolic Prof ilon 09-29-2024 Albumin [Mass/Vol] 4.3 g/dL Normal 3.5-5.[address] [facility] Comment on above: Performed By: #### L 501.2450, L100.0100, L500.4050 ####[facility] [address] [place], [address] Albumin/Globulin [Mass ratio] 1.2 {ratio} Normal 0.9-2.4 [facility] Comment on above: Performed By: #### L 501.2450, L100.0100, L500.4050 ####[facility] [address] [place], [address] ALK PHOS 80 U/L Normal 35-104 [facility] Comment on above: Performed By: #### L 501.2450, L100.0100, L500.4050 ####[facility] [address] [place], [address] ALT [Catalytic activity/Vol] 68 U/L High <=34 [facility] Comment on above: Performed By: #### L 501.2450, L100.0100, L500.4050 ####[facility] [address] [place], [address] AST [Catalytic activity/Vol] 43 U/L High <=31 [facility] Comment on above: Performed By: #### L 501.2450, L100.0100, L500.4050 ####[facility] [address] [place], [address] Bilirubin [Mass/Vol] 0.33 mg/dL Normal 0.00-1.30 [facility] Comment on above: Performed By: #### L 501.2450, L100.0100, L500.4050 ####[facility] [address] [place], [address] BUN/CRE 9.7 RATIO Low 10-20 [facility] Comment on above: Performed By: #### L 501.2450, L100.0100, L500.4050 ####[facility] [address] [place], [address] Calcium [Mass/Vol] 9.0 mg/dL Normal 7.6-11.[address] [facility] Comment on above: Performed By: #### L 501.2450, L100.0100, L500.4050 ####[facility] [address] [place], [address] Chloride [Moles/Vol] 102 mmol/L Normal 98-108 [facility] Comment on above: Performed By: #### L 501.2450, L100.0100, L500.4050 ####[facility] [address] [place], [address] CO2 [Moles/Vol] 23.3 mmol/L Normal 21.0-32.0 [facility] Comment on above: Performed By: #### L 501.2450, L100.0100, L500.4050 ####[facility] [address] [place], [address] Creatinine [Mass/Vol] 0.84 mg/dL Normal 0.70-1.20 [facility] Comment on above: Performed By: #### L 501.2450, L100.0100, L500.4050 ####[facility] [address] [place], [address] ECRCL 160.52 ml/min Normal 50-250 [facility] Comment on above: Performed By: #### L 501.2450, L100.0100, L500.4050 ####[facility] [address] [place], [address] GAP 12 Normal 5-15 [facility] Comment on above: Performed By: #### L 501.2450, L100.0100, L500.4050 ####[facility] [address] [place], [address] GFR/1.73 sq M.predicted among non-blacks MDRD (S/P/Bld) [Vol rate/Area] 99 mL/min/{1.73_m2} Normal >60 [facility] Comment on above: Result Comment: mL/m in/1.73m2 CKD-EPI Creatinine Equation (2020) Performed By: #### L 501.2450, L100.0100, L500.4050 ####[facility] [address] [place], [address] Globulin (S) [Mass/Vol] 3.8 g/dL Normal 2.2-4.2 [facility] Comment on above: Performed By: #### L 501.2450, L100.0100, L500.4050 ####[facility] [address] [place], [address] Glucose [Mass/Vol] 84 mg/dL Normal 70-[address] [facility] Comment on above: Performed By: #### L 501.2450, L100.0100, L500.4050 ####[facility] [address] [place], [address] Potassium [Moles/Vol] 3.8 mmol/L Normal 3.3-5.1 [facility] Comment on above: Performed By: #### L 501.2450, L100.0100, L500.4050 ####[facility] [address] [place], [address] Sodium [Moles/Vol] 138 mmol/L Normal 133-[address] [facility] Comment on above: Performed By: #### L 501.2450, L100.0100, L500.4050 ####[facility] [address] [place], [address] T PROT 8.1 g/dL Normal 5.9-8.4 [facility] Comment on above: Performed By: #### L 501.2450, L100.0100, L500.4050 ####[facility] [address] [place], [address] Urea nitrogen [Mass/Vol] 8 mg/dL Normal 4-19 [facility] Comment on above: Performed By: #### L 501.2450, L100.0100, L500.4050 ####[facility] [address] [place], [address] Emergency Department Summary on 09-29-2024 Emergency Department Summary [facility] Medical Records Department [address] [place] [address] Emergency Department Summary 09/29/24 MR#: [id number] Acct: [id number] Name: KATIE FORDE Rep #: [id number] : 2000 From: Shiv Roper DO PCP: Dr. Kate Silva MD Status:REG ER Location: ED HPI History of Present Illness Chief Complaint: [facility] Medical History Smoker Marfan syndrome ADHD (attention deficit hyperactivity disorder) Retinal detachment, old, total/subtotal Femur fracture, right Home Medications ???Medication ???Instructions ???Recorded ???Last Taken ???Type dextroamphetamine-ampheta mine 30 30 mg PO DAILY 04/03/15 Unknown Hi story mg tablet (Adderall) methylphenidate HCl 20 mg tablet 20 mg PO DAILY 04/03/15 Unknown Hi story (Ritalin) medroxyprogesterone 10 mg tablet 10 mg PO DAILY 12/02/23 11/30/23 H istory vit no.95-ferrous 1 tab PO DAILY 12/02/23 Unknown Hi story fumarate 28 mg-folic acid 800 mcg tablet () Allergy/AdvReac Type Severity Reaction Status Date / Time No Known Allergies Allergy Verified 09/29/24 20:11 Surgical History History of liver biopsy Social History Smoking Status: Light Smoker (<10/day) EXAM Physical Exam Const Vital Signs: 09/29/24 20:09 09/29/24 20:22 Temperature 97.8 F Temperature Source Oral Pulse Rate 93 Respiratory Rate 18 Respiratory Effort Normal Respiratory Pattern Normal Blood Pressure 145/84 H Blood Pressure Mean 104 Pulse Ox 97 Oxygen Delivery Method Room Air [facility] Medical decision making narrative: HISTORY OF PRESENT ILLNESS: Chief complaint: Weakness 23-year-old female presents with concern for lightheadedness. She states she feels lightheaded. She notices more when she is lying flat. She denies syncope. Symptoms are not worse with rising from a seated position. Denies associated palpitations, chest pain, vomiting, diarrhea, recent illnesses. No cough. She notes she vapes. She will sometimes she feels like she is not inside of her body. She denies suicidal ideation homicidal ideation of auditory visual hallucinations. Denies headaches. Denies recent sick contacts. She notes she is on her period. Denies urinary complaints REVIEW OF SYSTEMS: Pertinent positives: weakness, lightheadedness Pertinent negatives: Chest pain, shortness of breath, fever, urinary complaints PHYSICAL EXAM: Nursing triage notes reviewed, Vital signs reviewed Constitutional: please see mdm HENT: MMM Eyes: Pupils equal round and reactive to light, Extraocular muscles intact Neck: No stridor, no JVD, full neck ROM Lungs: Clear to auscultation, No wheezing or rales. No increased work of breathing, no conversational dyspnea, no accessory muscle use, no nasal flaring. No respiratory distress noted Heart: Regular rate and rhythm, No murmurs, No rubs and No gallops, 2+ distal pulses (radial, femoral, posterior tibial) in all extremities Abdomen: Soft, there is no tenderness, rigidity, rebound or guarding, no obvious peritoneal signs, no palpable pulsatile abdominal masses, no auscultated abdominal bruit : No CVAT Extremities: No edema Neuro: Alert and oriented x3, neuro exam at baseline, cranial nerves II through XII are intact. No pain with extraocular muscle movement. There is negative test of skew. 5 of 5 strength in upper and lower extremities in flexion extension. Intact sensation to light touch in upper and lower extremity dermatomes. No truncal or extremity ataxia. No dysdiadochokinesia. Normal gait. 2+ reflexes in upper and lower extremities. No meningeal signs. Negative Babinski. NIH of 0. Skin: No rash or lesions noted MEDICAL DECISION MAKING: Chief Complaint: please see HPI External records reviewed: Prior imaging reviewed: CT of the chest from 2016 shows no acute PE Factors affecting care: none Social determinants of health: none History obtained from others: none Consults: none [facility] Narrative: The patient was initially hemodynamically, afebrile and nontoxic. No focal neurologic deficits. No focal cardiopulmonary normalities on initial exam abdomen soft and nontender. No CVA tenderness. I considered the following differential diagnosis: Dehydration, electro disturbance, anemia ALL IMAGES (IF OBTAINED) HAVE BEEN PERSONALLY REVIEWED AND INTERPRETED BY MYSELF. EKG with normal sinus rhythm, rate 84, normal axis, no intervals, no STEMI CBC with leukocytosis suggestive of systemic aphasia however similar to prior studies, no anemia or thrombocytopenia noted Urinalysis no evidence of infection Urine is (more content not included)... Normal [facility] Eosinophil percentageOrdered By: Russell Agarwal on 09-29-2024 Eosinophils/100 WBC (Bld) 0.5 % 0-5 [facility] Epithelial cells.squamous LM Ql (Urine sed)Ordered By: Shiv Roper on 09-29-2024 Epithelial cells.squamous LM.HPF (Urine sed) [#/Area] 0 /[HPF] 5-10 [facility] Erythrocyte distribution wid th (RBC) [Ratio]Ordered By: Russell Agarwal on 09-29-2024 Erythrocyte distribution width (RBC) [Entitic vol] 39.3 fL 35.1-43.9 [facility] Erythrocyte distribution wid th ratioOrdered By: Russell Agarwal on 09-29-2024 Erythrocyte distribution width (RBC) [Ratio] 12.3 % 11.6-14.6 [facility] Estimation of creatinine nicole aranceOrdered By: Russell Agarwal on 09-29-2024 Estimated Creatinine Clearance Calc 160.52 ml/min 50-250 [facility] GFR/1.73 sq M.predicted tiesha g non-blacks MDRD (S/P/Bld) [Vol rate/Area]Ordered By: Russell Agarwal on 09-29-2024 Estimated GFR (MDRD) Non-Af Amer 99 >60 [facility] Comment on above: mL/min/1.73m2 CKD-EP I Creatinine Equation (2020) Glucose Ql (U)Ordered By: Tony Roper on 09-29-2024 Urine Glucose (UA) Normal mg/dl Normal [facility] Hematocrit Auto (Bld) [Volum e fraction]Ordered By: Russell Agarwal on 09-29-2024 Hematocrit (Bld) [Volume fraction] 42.1 % 37-47 [facility] Hemoglobin measurementOrdere d By: Russell Agarwal on 09-29-2024 Hemoglobin (Bld) [Mass/Vol] 14.6 g/dL 12.0-15.0 [facility] Immature granulocytes/100 WB C Auto (Bld)Ordered By: Russell Agarwal on 09-29-2024 Immature granulocytes/100 WBC (Bld) 0.500 % 0.0-0.9 [facility] Comment on above: IG% - Immature Granu locytes (promyelocytes, myelocytes and metamyelocytes) > 1% indicates that a LEFT SHIFT is Present. Ketones Test strip Ql (U)Ord ered By: Shiv Roper on 09-29-2024 Ketones Ql (U) Negative Negative [facility] Laboratory - Chemistry and C hemistry - challengeOrdered By: Russell Agarwal on 09-29-2024 AST [Catalytic activity/Vol] 43 U/L High <32 [facility] Lipaseon 09-29-2024 Lipase [Catalytic activity/Vol] 37 U/L Normal 13-75 [facility] Comment on above: Result Comment: Darrick lee note: LIPASE revised reference range effective 22. New Lipase methodology. Expected to produce lower values than the previous assay method. NEW Reference Range: 13 - 75 U/L Performed By: #### L 501.2450, L100.0100, L500.4050 ####[facility] [address] [place], [place], [id number] Lipase measurementOrdered By : Russell Agarwal on 09-29-2024 Lipase [Catalytic activity/Vol] 37 U/L 13-75 [facility] Comment on above: Please note:LIPASE r evised reference range effective 22. New Lipase methodology. Expected to produce lower values than the previous assay method. NEW Reference Range: 13 - 75 U/L Lymphocytes Auto (Unsp spec) [#/Vol]Ordered By: Russell Agarwal on 09-29-2024 Lymphocytes (Bld) [#/Vol] 3.89 10*3/uL 0.83-4.51 [facility] Lymphocytes/100 WBC Auto (Un sp spec)Ordered By: Russell Agarwal on 09-29-2024 Lymphocytes/100 WBC (Bld) 25.9 % 19-41 [facility] MCV (mean corpuscular volume ) determinationOrdered By: Russell Agarwal on 09-29-2024 MCV (RBC) [Entitic vol] 87.2 fL 81-99 [facility] Mean corpuscular hemoglobin (MCH) determinationOrdered By: Russell Agarwal on 09-29-2024 MCH (RBC) [Entitic mass] 30.2 pg 27.0-32.0 [facility] Mean corpuscular hemoglobin concentration (MCHC) determinationOrdered By: Russell Agarwal on 09-29-2024 MCHC (RBC) [Mass/Vol] 34.7 g/dL 32-36 [facility] Mean platelet volume determi nationOrdered By: Russell Agarwal on 09-29-2024 Platelet mean volume (Bld) [Entitic vol] 9.4 fL 6.2-12.0 [facility] Microscopic analysis of urin e for red blood cells (RBC)Ordered By: Shiv Roper on 09-29-2024 Urine RBC 10-25 SEEN /hpf 0-5 [facility] Monocyte percentageOrdered B y: Russell Agarwal on 09-29-2024 Monocytes/100 WBC (Bld) 5.8 % 0-10 [facility] Mucus LM Ql (Urine sed)Order ed By: Shiv Roper on 09-29-2024 Mucus Ql (Urine sed) 0 SEEN /hpf [facility] Neutrophil percentageOrdered By: Russell Agarwal on 09-29-2024 Neutrophils/100 WBC (Bld) 66.7 % 47-70 [facility] Nitrite Test strip Ql (U)Ord ered By: Shiv Roper on 09-29-2024 Nitrite Ql (U) Negative Negative [facility] Nucleated red blood cell per centageOrdered By: Russell Agarwal on 09-29-2024 Nucleated RBC/100 WBC (Bld) [Ratio] 0 % 0-5 [facility] Platelet countOrdered By: Aditya Agarwal on 09-29-2024 Platelets (Bld) [#/Vol] 503 10*3/uL High 150-450 [facility] Potassium (Unsp spec) [Mass/ Vol]Ordered By: Russell Agarwal on 09-29-2024 Potassium [Moles/Vol] 3.8 mmol/L 3.3-5.1 [facility] ,Urineon 09-29-2024 Beta HCG ( test) Ql (U) Negative Normal [facility] Comment on above: Result Comment: Very dilute urine specimens, as indicated by a low specific gravity, may not contain territory service representative levels of hCG. If is still suspected, a first morning urine specimen should be collected 48 hours later and tested. Performed By: #### L 400.0001, L400.7600 ####[facility] [address] [place], [address] Protein Test strip Ql (U)Ord ered By: Shiv Roper on 09-29-2024 Protein Ql (U) 15 mg/dl High Negative [facility] RBC Auto (Bld) [#/Vol]Ordere d By: Russell Agarwal on 09-29-2024 RBC (Bld) [#/Vol] 4.83 10*6/uL 4.2-5.4 [facility] Serum creatinine measurement (mass/volume)Ordered By: Russell Agarwal on 09-29-2024 Creatinine [Mass/Vol] 0.84 mg/dL 0.70-1.20 [facility] Serum globulin measurementOr dered By: Russell Agarwal on 09-29-2024 Globulin (S) [Mass/Vol] 3.8 g/dL 2.2-4.2 [facility] Serum glucose measurement (m ass/volume)Ordered By: Russell Agarwal on 09-29-2024 Glucose [Mass/Vol] 84 mg/dL 70-[address] [facility] Serum or plasma alanine nath otransferase (ALT) measurementOrdered By: Russell Agarwal on 09-29-2024 ALT [Catalytic activity/Vol] 68 U/L High <35 [facility] Serum or plasma albumin lawrence urement (mass/volume)Ordered By: Russell Agarwal on 09-29-2024 Albumin [Mass/Vol] 4.3 g/dL 3.5-5.[address] [facility] Serum or plasma albumin/glob ulin mass ratioOrdered By: Russell Agarwal on 09-29-2024 Albumin/Globulin [Mass ratio] 1.2 {ratio} 0.9-2.4 [facility] Serum or plasma alkaline charisse sphatase measurementOrdered By: Russell Agarwal on 09-29-2024 ALP [Catalytic activity/Vol] 80 U/L 35-104 [facility] Serum or plasma calcium lawrence urement (mass/volume)Ordered By: Russell Agarwal on 09-29-2024 Calcium [Mass/Vol] 9.0 mg/dL 7.6-11.[address] [facility] Serum or plasma urea nitroge n measurement (mass/volume)Ordered By: Russell Agarwal on 09-29-2024 Urea nitrogen [Mass/Vol] 8 mg/dL 4-19 [facility] Sodium levelOrdered By: Russell Agarwal on 09-29-2024 Sodium [Moles/Vol] 138 mmol/L 133-[address] [facility] Total proteinOrdered By: Marisela Agarwal on 09-29-2024 Protein [Mass/Vol] 8.1 g/dL 5.9-8.[address] [facility] Urinalysis, Completeon 09-29 EPI,SQUAMOUS 0-5 SEEN Normal 5-10 [facility] Comment on above: Order Comment: CLEAN CATCH Performed By: #### L 400.0001, L400.7600 ####[facility] [address] [place], [address] RBC 10-25 SEEN Normal 0-5 [facility] Comment on above: Order Comment: CLEAN CATCH Performed By: #### L 400.0001, L400.7600 ####[facility] [address] [place], [address] BACTERIA 0 SEEN Normal None Seen [facility] Comment on above: Order Comment: CLEAN CATCH Performed By: #### L 400.0001, L400.7600 ####[facility] [address] [place], [address] Mucus Ql (Urine sed) 0 SEEN Normal [facility] Comment on above: Order Comment: CLEAN CATCH Performed By: #### L 400.0001, L400.7600 ####[facility] [address] [place], [address] WBC 0 SEEN Normal 0-5 [facility] Comment on above: Order Comment: CLEAN CATCH Performed By: #### L 400.0001, L400.7600 ####[facility] [address] [place], [address] Urine blood detectionOrdered By: Shiv Roper on 09-29-2024 Urine Occult Blood 250 /ul High Negative [facility] Urine clarityOrdered By: Amy Roper on 09-29-2024 Clarity (U) Clear Clear [facility] Urine color determinationOrd ered By: Shiv Roper on 09-29-2024 Color (U) Yellow Yellow [facility] Urine leukocyte esterase det ection by dipstickOrdered By: Shiv Roper on 09-29-2024 Leukocyte esterase Test strip Ql (U) Negative Negative [facility] Urine pHOrdered By: Shiv hall on 09-29-2024 pH (U) 7.0 [pH] 5.0 - 8.0 [facility] Urine testOrdered By: Shiv Roper on 09-29-2024 HCG ( test) Ql (U) Negative [facility] Comment on above: Very dilute urine sp ecimens, as indicated by a low specificgravity, may not contain territory service representative levels of hCG. If is still suspected, a first morning urinespecimen should be collected 48 hours later and tested. Urine sediment bacteria coun t by microscopy (number/high power field)Ordered By: Shiv Roper on 09-29-2024 Bacteria LM.HPF (Urine sed) [#/Area] 0 /[HPF] None Seen [facility] Urine specific gravity measu rementOrdered By: Shiv Roper on 09-29-2024 Specific gravity (U) [Rel density] 1.010 1.002-1.030 [facility] Urobilinogen Ql (U)Ordered B y: Shiv Roper on 09-29-2024 Urine Urobilinogen Normal mg/dl Normal [facility] White blood cell (WBC) count Ordered By: Russell Agarwal on 09-29-2024 WBC (Bld) [#/Vol] 15.0 10*3/uL High 4.4-11.0 [facility] White blood cell countOrdere d By: Shiv Roper on 09-29-2024 Urine WBC 0 SEEN /hpf 0-5 [facility] CNOVon 08-30-2024 CNOV Office Visit (LARA ) ----- KATIE FORDE ([id number]) 2000 F Date Time Provider Department 08/30/24 1:20 PM SANTI MCALLISTER During your visit today, we recorded the following information about you: Pulse Respiration Blood pressure Weight 93/minute 14/minute 118/74 135.6 kg Height Last Period 1.829 m 08/06/24 Santi Mcallister MD 08/30/2024 2:34 PM Signed Santi Mcallister MD Interventional Cardiology [address] [place] [phone] Chief Complaint Patient presents with: Follow Up: last seen 2022 HISTORY OF PRESENT ILLNESS: Ms. 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 Cardiac was completely normal Cardiac Risk Factors age (male over 45, female over 55), family history of CAD PAST MEDICAL HISTORY Diagnosis Date ADHD (attention [...] Social History Tobacco Use Smoking status: Former Current packs/day: 0.00 Types: Cigarettes Quit date: 2021 Years since quittin.1 Smokeless tobacco: Never Tobacco comments: Pt smoked 3 cigarettes daily x 2 months, quit 2021 Pt vapes Vaping Use Vaping status: current everyday user Substances: Nicotine, Flavoring Devices: Pre-filled or refillable cartridge Substance Use Topics Alcohol use: Not Currently Comment: occasional Drug use: Not Currently Types: Marijuana ALLERGIES No Known Allergies Medications: Current Outpatient Medications Medication Sig Dispense Refill amoxicillin-clavulanate potassium (AUGMENTIN) 875-125 mg per tablet Take 1 tablet by mouth two times a day for 10 days. 20 tablet 0 benzonatate (TESSALON PERLE) 100 mg capsule Take 1 capsule by mouth three times a day as needed for cough for up to 7 days. 21 capsule 0 fluconazole (DIFLUCAN) 150 mg tablet Take 1 tablet today, then a 2nd tablet in 72 hours, and 3rd tablet in another 72 hours. 3 tablet 0 amphetamine-dextroampheta mine XR (ADDERALL XR) 30 mg capsule Take 1 capsule by mouth every morning for 30 days. 30 capsule 0 methylphenidate (RITALIN) 20 mg tablet Take 1 tablet by mouth as needed for up to 30 days. Take at approx. 3-4 pm. 30 tablet 0 [START ON 09/08/2024] methylphenidate (RITALIN) 20 mg tablet Take 1 tablet by mouth as needed for up to 30 days. Take at approx. 3-4 pm. Patient should start on September 08, 2024. 30 tablet 0 [START ON 09/08/2024] amphetamine-dextroampheta mine XR (ADDERALL XR) 30 mg capsule Take 1 capsule by mouth every morning for 30 days. Patient should start on September 08, 2024. 30 capsule 0 [START ON 10/08/2024] amphetamine-dextroampheta mine XR (ADDERALL XR) 30 mg capsule Take 1 capsule by mouth every morning for 30 days. Patient should start on October 08, 2024. 30 capsule 0 [START ON 10/08/2024] methylphenidate (RITALIN) 20 mg tablet Take 1 tablet by mouth as needed for up to 30 days. Take at approx. 3-4 pm. Patient should start on October 08, 2024. 30 tablet 0 triamcinolone acetonide (KENALOG) 0.1 % cream Apply to affected area two times a day as needed. May use for up to 14 days per rash 30 g 0 omeprazole (PRILOSEC) 20 mg capsule Take 1 capsule by mouth once daily. On empty stomach at least 30 minutes before eating. 90 capsule 1 methylphenidate (RITALIN) 20 mg tablet Take 1 tablet by mouth as needed for up to 30 days. Take at approx. 3-4 pm. 30 tablet 0 rizatriptan (MAXALT) 10 mg tablet Take 1 tablet (10 mg) by mouth as needed for migraine headache (see administration instructions). May repeat dose after 2 hours if needed. Maximum daily dose is 30 mg per day. 18 tablet 2 dulaglutide (TRULICITY) 1.5 mg/0.5 mL pen injector Inject 1.5 mg subcutaneously one time a week. 4 Each 2 buPROPion XL (WELLBUTRIN XL) 150 mg 24 hr tablet Take 1 tablet by mouth once daily. 30 tablet 3 Blood-Glucose Meter 1 (more content not included)... Normal [facility] [id number] 08-30-2024 ECG01 Ventricular Rate : 9 0 BPM Atrial Rate : 90 BPM P-R Interval : 150 ms QRS Duration : 76 ms Q-T Interval : 374 ms QTC Calculation(Bazett) : 457 ms Calculated P Phoenix : 58 degrees Calculated R Phoenix : 37 degrees Calculated T Phoenix : 53 degrees NORMAL SINUS RHYTHM NORMAL ECG Confirmed by MD DANIELLE, MACKENZIE ([id number]) on 08/31/2024 12:57:53 PM NAME : KATIE FORDE PID : [id number] : 2000 Gender : Female Race : ORD : Procedure Date : Aug 30 2024 13:24:52 Edit Date : Aug 31 2024 12:57:56 Diagnosis: NORMAL SINUS RHYTHM NORMAL ECG Confirmed by MD SANTOS QARAB ([id number]) on 08/31/2024 12:57:53 PM Test Reason : Location : 136 : [facility] Overread By : MD SANTOS QARAB Edited By : MD SANTOS QARAB Referred By : , Acquired by : Nuris shipley [facility] CNOVon 08-24-2024 CNOV Office Visit (UCWSTR ) ----- KATIE FORDE ([id number]) 2000 F Date Time Provider Department 08/24/24 10:15 AM RADHA LONG [facility] During your visit today, we recorded the following information about you: Temperature Pulse Respiration Blood pressure 98 degrees 104/minute 16/minute 118/78 Weight 136.7 kg Radha Long PA-C 08/24/2024 10:36 AM Signed This note was created using GMEX. Subjective Katie Forde is a 23 year old female. Patient is a 23-year-old female who complains of ongoing congestion, sinus pressure, ear fullness, sore throat and cough that has been present for the past 2 weeks. Patient denies fever, chills or myalgia. Patient has no history of asthma or COPD and does not smoke. Patient states that her brother recently did test positive for group A strep tonsillitis. Cough Associated symptoms include ear pain and sore throat. Review of Systems HENT: Positive for congestion, ear pain, sinus pressure and sore throat. Respiratory: Positive for cough. All other systems reviewed and are negative. Objective BP 118/78 Pulse 104 Temp 36.7 ?C (98 ?F) (Tympanic) Resp 16 Wt (!) 136.7 kg (301 lb 5.9 oz) LMP 03/31/2024 (Exact Date) SpO2 97% BMI 40.87 kg/m? Physical Exam Vitals and nursing note reviewed. Constitutional: Appearance: Normal appearance. She is normal weight. HENT: Head: Normocephalic and atraumatic. Right Ear: Tympanic membrane, ear canal and external ear normal. Left Ear: Tympanic membrane, ear canal and external ear normal. Nose: Nose normal. Mouth/Throat: Mouth: Mucous membranes are moist. Pharynx: Oropharynx is clear. Eyes: Extraocular Movements: Extraocular movements intact. Conjunctiva/sclera: Conjunctivae normal. Pupils: Pupils are equal, round, and reactive to light. Cardiovascular: Rate and Rhythm: Normal rate and regular rhythm. Pulses: Normal pulses. Heart sounds: Normal heart sounds. Pulmonary: Effort: Pulmonary effort is normal. Breath sounds: Normal breath sounds. Musculoskeletal: Cervical back: Normal range of motion and neck supple. Skin: General: Skin is warm and dry. Capillary Refill: Capillary refill takes less than 2 seconds. Neurological: General: No focal deficit present. Mental Status: She is alert and oriented to person, place, and time. Psychiatric: Mood and Affect: Mood normal. Behavior: Behavior normal. Thought Content: Thought content normal. Judgment: Judgment normal. Assessment and Plan Physical exam findings as noted above. Patient was provided with prescriptions for Augmentin 875-125 mg and Tessalon 100 mg. Supportive care instructions were discussed and the patient verbalizes good understanding of same. CLINICAL IMPRESSION: Acute Sinusitis ASSESSMENT/PLAN: 1. Acute recurrent sinusitis, unspecified location - ICD9: 461.9, ICD10: J01.91 - AMOXICILLIN 875 MG-POTASSIUM CLAVULANATE 125 MG TABLET - BENZONATATE 100 MG CAPSULE Radha STEVEN Long Allergies As of Date: 08/24/2024 (No Known Allergies) Date Reviewed: 08/24/2024 Reviewed by: Vonda Mesa LPN - Fully Assessed Reason for Visit: Cough [28] Cmt: Cough, ST and runny nose x 1-2 weeks Primary Visit Diagnosis:Acute recurrent sinusitis, unspecified location [J01.91] Order(s):amoxicillin-clav ulanate potassium (AUGMENTIN) 875-125 mg per tabletTake 1 tablet by mouth two times a day for 10 days.Disp: 20 tabletRfl: 0 benzonatate (TESSALON PERLE) 100 mg capsuleTake 1 capsule by mouth three times a day as needed for cough for up to 7 days.Disp: 21 capsuleRfl: 0 Prescriptions as of 08/24/2024 - amoxicillin-clavulanate potassium (AUGMENTIN) 875-125 mg per tablet Take 1 tablet by mouth two times a day for 10 days. - benzonatate (TESSALON PERLE) 100 mg capsule Take 1 capsule by mouth three times a day as needed for cough for up to 7 days. - fluconazole (DIFLUCAN) 150 mg tablet Take 1 tablet today, then a 2nd tablet in 72 hours, and 3rd tablet in another 72 hours. - amphetamine-dextroampheta mine XR (ADDERALL XR) 30 mg capsule Take 1 capsule by mouth every morning for 30 days. - methylphenidate (RITALIN) 20 mg tablet Take 1 tablet by mouth as needed for up to 30 days. Take at approx. 3-4 pm. - methylphenidate (RITALIN) 20 mg tablet Take 1 tablet by mouth as needed for up to 30 days. Take at approx. 3-4 pm. Patient should start on September 08, 2024. - amphetamine-dextroampheta mine XR (ADDERALL XR) 30 mg capsule Take 1 capsule by mouth every morning for 30 days. Patient should start on September 08, 2024. - amphetamine-dextroampheta mine XR (ADDERALL XR) 30 mg capsule Take 1 capsule by mouth every morning for 30 days. Patient should start on October 08, 2024. - methylphenidate (RITALIN) 20 mg tablet Take 1 tablet by mouth as needed for up to 30 days. Take at approx. 3-4 pm. Patient should start on October 08, 2024. - (more content not included)... Normal [facility] CBC panel Auto (Bld)on 08-09 Erythrocyte distribution width (RBC) [Ratio] 12.4 % 11.5 - 15.0 % [facility] Hematocrit (Bld) [Volume fraction] 43.7 % 36.0 - 46.0 % [facility] Hemoglobin (Bld) [Mass/Vol] 14.6 g/dL 11.5 - 15.5 g/dL [facility] Interpretation and review of laboratory results Abnormal [facility] MCH (RBC) [Entitic mass] 29.9 pg 26.0 - 34.0 pg [facility] MCHC (RBC) [Mass/Vol] 33.4 g/dL 30.5 - 36.0 g/dL [facility] MCV (RBC) [Entitic vol] 89.5 fL 80.0 - 100.0 fL [facility] Nucleated RBC (Bld) [#/Vol] NINF [facility] Platelet mean volume (Bld) [Entitic vol] 10.1 fL 9.0 - 12.7 fL [facility] Platelets (Bld) [#/Vol] 488 10*3/uL High [facility] RBC (Bld) [#/Vol] 4.88 10*6/uL 3.90 - 5.2 0 m/uL [facility] WBC (Bld) [#/Vol] 12.44 10*3/uL High [facility] Erythrocyte distribution width (RBC) [Ratio] 12.4 % Normal 11.5-15.0 [facility] Comment on above: Order Comment: Speci men Type: BLOOD SPECIMEN Ordering Facility: [facility] Address: [address] [place] [address] Performed By: #### 3 016-3, 2842-3 #### [facility] CLIA [id number] [address] [place] [address] [place] Hematocrit (Bld) [Volume fraction] 43.7 % Normal 36.0-46.0 [facility] Comment on above: Order Comment: Speci men Type: BLOOD SPECIMEN Ordering Facility: [facility] Address: [address] [place] [address] Performed By: #### 3 016-3, 2842-3 #### [facility] CLIA [id number] [address] [place] [address] [place] Hemoglobin (Bld) [Mass/Vol] 14.6 g/dL Normal 11.5-15.5 [facility] Comment on above: Order Comment: Speci men Type: BLOOD SPECIMEN Ordering Facility: [facility] Address: [address] [place] [address] Performed By: #### 3 016-3, 2842-3 #### [facility] CLIA [id number] [address] [place] [address] [place] MCH (RBC) [Entitic mass] 29.9 pg Normal 26.0-34.0 [facility] Comment on above: Order Comment: Speci men Type: BLOOD SPECIMEN Ordering Facility: [facility] Address: [address] [place] [address] Performed By: #### 3 016-3, 284-3 #### [facility] CLIA [id number] [address] [place] [address] [place] MCHC (RBC) [Mass/Vol] 33.4 g/dL Normal 30.5-36.0 [facility] Comment on above: Order Comment: Speci men Type: BLOOD SPECIMEN Ordering Facility: [facility] Address: [address] [place] [address] Performed By: #### 3 016-3, 284-3 #### [facility] CLIA [id number] [address] [place] [address] [place] MCV (RBC) [Entitic vol] 89.5 fL Normal 80.0-100.0 [facility] Comment on above: Order Comment: Speci men Type: BLOOD SPECIMEN Ordering Facility: [facility] Address: [address] [place] [address] Performed By: #### 3 016-3, 2842-3 #### [facility] CLIA [id number] [address] [place] [address] [place] Nucleated RBC (Bld) [#/Vol] 10*3/uL Normal <0.01 [facility] Comment on above: Order Comment: Speci men Type: BLOOD SPECIMEN Ordering Facility: [facility] Address: [address] [place] [address] Performed By: #### 3 016-3, 2842-3 #### [facility] CLIA [id number] [address] [place] [address] [place] Platelet mean volume (Bld) [Entitic vol] 10.1 fL Normal 9.0-12.7 [facility] Comment on above: Order Comment: Speci men Type: BLOOD SPECIMEN Ordering Facility: [facility] Address: [address] [place] [address] Performed By: #### 3 016-3, 2842-3 #### [facility] CLIA [id number] [address] [place] [address] [place] Platelets (Bld) [#/Vol] 488 10*3/uL High 150-400 [facility] Comment on above: Order Comment: Speci men Type: BLOOD SPECIMEN Ordering Facility: [facility] Address: [address] [place] [address] Performed By: #### 3 016-3, 2842-3 #### [facility] CLIA [id number] [address] [place] [address] [place] RBC (Bld) [#/Vol] 4.88 10*6/uL Normal 3.90-5.20 [facility] Comment on above: Order Comment: Speci men Type: BLOOD SPECIMEN Ordering Facility: [facility] Address: [address] [place] [address] Performed By: #### 3 016-3, 2842-3 #### [facility] CLIA [id number] [address] [place] [address] [place] WBC (Bld) [#/Vol] 12.44 10*3/uL High 3.70-11.00 [facility] Comment on above: Order Comment: Speci men Type: BLOOD SPECIMEN Ordering Facility: [facility] Address: [address] [place] [address] Performed By: #### 3 016-3, 2842-3 #### [facility] CLIA [id number] [address] [place] [address] [place] CK SerPl-cCncon 08-09-2024 CK [Catalytic activity/Vol] 76 U/L Normal 42-196 [facility] Comment on above: Order Comment: Speci men Type: BLOOD SPECIMEN Ordering Facility: [facility] Address: [address] [place] [address] Performed By: #### 3 016-3, 2842-3 #### [facility] CLIA [id number] [address] [place] [address] [place] CNOVon 08-09-2024 CNOV Office Visit (INTMWS ) ----- KATIE FORDE ([id number]) 2000 F Date Time Provider Department 08/09/24 10:20 AM KATE SILVA INTMWS During your visit today, we recorded the following information about you: Pulse Respiration Blood pressure Weight 86/minute 16/minute 103/61 136 kg Kate Silva MD 08/09/2024 11:21 PM Signed This note was created using [employer]. Subjective Katie Forde is a 23 year old female. Patient presents with: F/U 3 Month SUBJECTIVE: Katie Forde is a 23 year old year old lady here today for 3 month follow up appointment for review of medical conditions. Katie Forde is a 23-year-old female with a history of diabetes mellitus type 2, eczema, migraines, and GERD, presenting for medication refills and evaluation of diffuse myalgia, eczema, and nocturnal abdominal pain with emesis. Katie reports diffuse myalgia that began approximately 1 month ago. The pain is described as a constant ache, similar to post-exercise soreness, despite no recent physical activity. The myalgia is not exacerbated by the use of Adderall. Katie also experiences episodes of numbness and weakness, particularly in the upper extremities, making it difficult to lift her hands for extended periods. The pain is not localized to specific muscles or joints and occurs regardless of her position or activity. She inquires about the possibility of fibromyalgia, noting a family history of the condition in her mother and brother. She denies joint pain or swelling. Katie also reports worsening eczema, with pruritic, dry skin lesions on her elbows and other areas. She has been using unscented lotions from [employer] without relief. She notes a family history of eczema and mentions that her 10-year-old brother has severe eczema. Additionally, Katie experiences nocturnal abdominal pain with emesis approximately 3 times per month. The pain is described as a sharp, squeezing sensation in the stomach, often accompanied by nausea and a feeling of needing to defecate or vomit. These episodes occur late at night and are not associated with specific foods or activities. She suspects a possible link to nicotine use, as she has been using Zyn nicotine pouches and vaping. She is attempting to quit nicotine and has switched to a zero-nicotine vape but reports increased moodiness during withdrawal. She denies any changes in bowel habits and reports regular bowel movements. Katie has a history of migraines and continues to experience episodes. She is currently menstruating and reports increased pain during this time. She also mentions stress eating and difficulty controlling her diet, despite efforts to reduce sugar intake. She is currently taking omeprazole for GERD but admits to inconsistent use. She is requesting refills for Adderall and Ritalin, which were last prescribed on July 17 but not filled by her pharmacy, [facility]. She also requests medication for nausea and eczema. She is due for a Pap smear and a vulvar biopsy due to recurrent yeast infections, as recommended by her intensive care unit registered nurse. PAST MEDICAL HISTORY Diagnosis Date ADHD (attention deficit hyperactivity disorder) Fatty liver GERD (gastroesophageal reflux disease) Marfan's syndrome VIRAL WARTS NOS 06/25/2008 resolved Current Outpatient Medications Medication Sig omeprazole (PRILOSEC) 20 mg capsule Take 1 capsule by mouth once daily. On empty stomach at least 30 minutes before eating. methylphenidate (RITALIN) 20 mg tablet Take 1 tablet by mouth as needed for up to 30 days. Take at approx. 3-4 pm. Patient should start on July 17, 2024. amphetamine-dextroampheta mine XR (ADDERALL XR) 30 mg capsule Take 1 capsule by mouth every morning for 30 days. Patient should start on July 17, 2024. fluconazole (DIFLUCAN) 150 mg tablet Take 1 tablet today, then a 2nd tablet in 72 hours, and 3rd tablet in another 72 hours. rizatriptan (MAXALT) 10 mg tablet Take 1 tablet (10 mg) by mouth as needed for migraine headache (see administration instructions). May repeat dose after 2 hours if needed. Maximum daily dose is 30 mg per day. dulaglutide (TRULICITY) 1.5 mg/0.5 mL pen injector Inject 1.5 mg subcutaneously one time a week. buPROPion XL (WELLBUTRIN XL) 150 mg 24 hr tablet Take 1 tablet by mouth once daily. Blood-Glucose Meter 1 Device as directed. For once daily testing blood sugar diagnostic (BLOOD GLUCOSE TEST) test strip Test blood sugar(s) one times daily. Dx: Type 2 DM - Controlled E11.9 Insulin: No Lancets Test blood sugar(s) one times daily. Dx: Type 2 DM - Controlled E11.9 Insulin: No Norethindrone, Contraceptive, (SELMA) 0.35 mg tablet Take 1 tablet by mouth once daily. ondansetron orally disintegrating (ZOFRAN ODT) 4 mg disintegrating tablet Take 1 tablet by mouth every 8 hours as needed for nausea/vo (more content not included)... Normal [facility] CRP SerPl-ncon 08-09-2024 CRP [Mass/Vol] 1.6 mg/dL High <0.9 [facility] Comment on above: Order Comment: Speci men Type: BLOOD SPECIMEN Ordering Facility: [facility] Address: [address] [place] [address] Performed By: #### 3 016-3, 8222-3 #### [facility] CLIA [id number] [address] [place], [place] [address] [place] [address] [place] Comprehensive metabolic 2000 panelon 08-09-2024 Albumin [Mass/Vol] 4.2 g/dL Normal 3.9-4.9 [facility] Comment on above: Order Comment: Speci men Type: BLOOD SPECIMEN Ordering Facility: [facility] Address: [address] [place] [address] Performed By: #### 3 016-3, 2842-3 #### [facility] CLIA [id number] [address] [place] [address] [place] ALP [Catalytic activity/Vol] 75 U/L Normal 34-123 [facility] Comment on above: Order Comment: Speci men Type: BLOOD SPECIMEN Ordering Facility: [facility] Address: [address] [place] [address] Performed By: #### 3 016-3, 2842-3 #### [facility] CLIA [id number] [address] [place] [address] [place] ALT [Catalytic activity/Vol] 50 U/L High 7-38 [facility] Comment on above: Order Comment: Speci men Type: BLOOD SPECIMEN Ordering Facility: [facility] Address: [address] [place] [address] Performed By: #### 3 016-3, 2842-3 #### [facility] CLIA [id number] [address] [place] [address] [place] Anion gap [Moles/Vol] 12 mmol/L Normal 8-15 [facility] Comment on above: Order Comment: Speci men Type: BLOOD SPECIMEN Ordering Facility: [facility] Address: [address] [place] [address] Performed By: #### 3 016-3, 2842-3 #### [facility] CLIA [id number] [address] [place] [address] [place] AST [Catalytic activity/Vol] 41 U/L High 13-35 [facility] Comment on above: Order Comment: Speci men Type: BLOOD SPECIMEN Ordering Facility: [facility] Address: [address] [place] [address] Performed By: #### 3 016-3, 2842-3 #### [facility] CLIA [id number] [address] [place] [address] [place] Bilirubin [Mass/Vol] 0.3 mg/dL Normal 0.2-1.3 [facility] Comment on above: Order Comment: Speci men Type: BLOOD SPECIMEN Ordering Facility: [facility] Address: [address] [place] [address] Performed By: #### 3 016-3, 2842-3 #### [facility] CLIA [id number] [address] [place] [address] [place] Calcium [Mass/Vol] 9.1 mg/dL Normal 8.5-10.2 [facility] Comment on above: Order Comment: Speci men Type: BLOOD SPECIMEN Ordering Facility: [facility] Address: [address] [place] [address] Performed By: #### 3 016-3, 2842-3 #### [facility] CLIA [id number] [address] [place] [address] [place] Chloride [Moles/Vol] 104 mmol/L Normal 98-107 [facility] Comment on above: Order Comment: Speci men Type: BLOOD SPECIMEN Ordering Facility: [facility] Address: [address] [place] [address] Performed By: #### 3 016-3, 2842-3 #### [facility] CLIA [id number] [address] [place] [address] [place] CO2 [Moles/Vol] 21 mmol/L Low 22-30 [facility] Comment on above: Order Comment: Speci men Type: BLOOD SPECIMEN Ordering Facility: [facility] Address: [address] [place] [address] Performed By: #### 3 016-3, 2842-3 #### [facility] CLIA [id number] [address] [place] [address] [place] Creatinine [Mass/Vol] 0.80 mg/dL Normal 0.58-0.96 [facility] Comment on above: Order Comment: Lore buitrago Type: BLOOD SPECIMEN Ordering Facility: [facility] Address: [address] [place] [address] Performed By: #### 3 016-3, 2842-3 #### [facility] CLIA [id number] [address] [place] [address] [place] Creatinine and Glomerular filtration rate.predicted panel (S/P/Bld) 105 mL/min/1.73m??? Normal >=60 [facility] Comment on above: Order Comment: Lore buitrago Type: BLOOD SPECIMEN Ordering Facility: [facility] Address: [address] [place] [address] Result Comment: Shantal mated Glomerular Filtration Rate (eGFR) is calculated using the 2020 CKD-EPI creatinine equation. This equation utilizes serum creatinine, sex, and age as parameters. The creatinine assay has traceable calibration to isotope dilution-mass spectrometry. Refer to KDIGO guidelines for clinical interpretation. In patients with unstable renal function, e.g. those with acute kidney injury, the eGFR may not accurately reflect actual GFR. Performed By: #### 3 016-3, 2842-3 #### [facility] CLIA [id number] [address] [place] [address] [place] Glucose [Mass/Vol] 62 mg/dL Low 74-99 [facility] Comment on above: Order Comment: Lore buitrago Type: BLOOD SPECIMEN Ordering Facility: [facility] Address: [address] [place] [address] Result Comment: The [place] Diabetes Association (ADA) provides guidance for cutoff values for fasting glucose and random glucose. The ADA defines fasting as no caloric intake for at least 8 hours. Fasting plasma glucose results between 100 to 125 mg/dL indicate increased risk for diabetes (prediabetes). Fasting plasma glucose results greater than or equal to 126 mg/dL meet the criteria for diagnosis of diabetes. In the absence of unequivocal hyperglycemia, results should be confirmed by repeat testing. In a patient with classic symptoms of hyperglycemia or hyperglycemic crisis, random plasma glucose results greater than or equal to 200 mg/dL meet the criteria for diagnosis of diabetes. Reference: Standards of Medical Care in Diabetes 2016, [place] Diabetes Association. Diabetes Care. 2016.39(Suppl 1). Performed By: #### 3 016-3, 2842-3 #### [facility] CLIA [id number] [address] [place] [address] [place] Potassium [Moles/Vol] 4.1 mmol/L Normal 3.7-5.1 [facility] Comment on above: Order Comment: Speci men Type: BLOOD SPECIMEN Ordering Facility: [facility] Address: [address] [place] [address] Performed By: #### 3 016-3, 2842-3 #### [facility] CLIA [id number] [address] [place] [address] [place] Protein [Mass/Vol] 7.6 g/dL Normal 6.3-8.0 [facility] Comment on above: Order Comment: Speci men Type: BLOOD SPECIMEN Ordering Facility: [facility] Address: [address] [place] [address] Performed By: #### 3 016-3, 2842-3 #### [facility] CLIA [id number] [address] [place] [address] [place] Sodium [Moles/Vol] 137 mmol/L Normal 136-144 [facility] Comment on above: Order Comment: Speci men Type: BLOOD SPECIMEN Ordering Facility: [facility] Address: [address] [place] [address] Performed By: #### 3 016-3, 2842-3 #### [facility] CLIA [id number] [address] [place] [address] [place] Urea nitrogen [Mass/Vol] 8 mg/dL Normal 7-21 [facility] Comment on above: Order Comment: Speci men Type: BLOOD SPECIMEN Ordering Facility: [facility] Address: [address] [place] [address] Performed By: #### 3 016-3, 2842-3 #### [facility] CLIA [id number] [address] [place] [address] [place] ESR Westergren method (Bld) [Velocity]on 08-09-2024 ESR (Bld) [Velocity] 32 mm/h High [facility] Interpretation and review of laboratory results Abnormal [facility] ESR (Bld) [Velocity] 32 mm/h High 0-20 [facility] Comment on above: Order Comment: Speci men Type: BLOOD SPECIMEN Ordering Facility: [facility] Address: [address] [place] [address] Performed By: #### 3 016-3, 2842-3 #### [facility] CLIA [id number] [address] [place] [address] [place] HbA1c (Bld)on 08-09-2024 Average glucose Estimated from glycated hemoglobin (Bld) [Mass/Vol] 94 mg/dL Normal [facility] Comment on above: Order Comment: Lore buitrago Type: BLOOD SPECIMEN Ordering Facility: [facility] Address: [address] [place] [address] Result Comment: eAG: (Estimated average glucose) is a calculated value from HgbA1c and is territory service representative of the average blood glucose level in the last 2-3 month period. Performed By: #### V ITB6 #### [facility] [employer] [id number] [address] [place] [address] HbA1c (Bld) [Mass fraction] 4.9 % Normal 4.3-5.6 [facility] Comment on above: Order Comment: Lore buitrago Type: BLOOD SPECIMEN Ordering Facility: [facility] Address: [address] [place] [address] Result Comment: [place] Diabetes Association guidelines indicate that patients with HgbA1c in the range 5.7-6.4% are at increased risk for development of diabetes, and intervention by lifestyle modification may be beneficial. HgbA1c greater or equal to 6.5% is considered diagnostic of diabetes. Performed By: #### V ITB6 #### [facility] CLIA [id number] [address] [place] [address] CNOVon 05-19-2024 CNOV Office Visit (UCWSTR ) ----- KATIE FORDE ([id number]) 2000 F Date Time Provider Department 05/19/24 9:45 AM ARTHUR JOSEPH [facility] During your visit today, we recorded the following information about you: Temperature Pulse Respiration Blood pressure 97.6 degrees 97/minute 18/minute 120/82 Weight 137.6 kg Arthur Joseph PA-C 05/19/2024 12:09 PM Signed This note was created using GMEX. Subjective Katie Forde is a 23 year old female. HPI Presents with a chief complaint of sinus pain and pressure over the past 1 to 2 weeks. Denies cough. States she did have 1 bout of diarrhea yesterday but thinks maybe it was from something she ate. No chest pain or shortness of breath. No vomiting. She has had a frontal sinus pressure which seems to be worsening. She has had some sick contacts near her at home. No fever. Review of Systems Constitutional: Positive for fatigue. Negative for fever. HENT: Positive for congestion, postnasal drip, sinus pressure, sinus pain and sore throat. Negative for ear pain. Respiratory: Negative for cough. Cardiovascular: Negative. Gastrointestinal: Negative. Genitourinary: Negative. Musculoskeletal: Negative. All other systems reviewed and are negative. PAST MEDICAL HISTORY Diagnosis Date ADHD (attention deficit hyperactivity disorder) Fatty liver GERD (gastroesophageal reflux disease) Marfan's syndrome VIRAL WARTS NOS 06/25/2008 resolved Current Outpatient Medications Medication Sig Dispense Refill doxycycline (VIBRA-TABS) 100 mg tablet Take 1 tablet by mouth two times a day for 7 days. 14 tablet 0 amphetamine-dextroampheta mine XR (ADDERALL XR) 30 mg capsule Take 1 capsule by mouth every morning for 30 days. 30 capsule 0 methylphenidate (RITALIN) 20 mg tablet Take 1 tablet by mouth as needed for up to 30 days. Take at approx. 3-4 pm. 30 tablet 0 ibrexafungerp (BREXAFEMME) 150 mg tablet Take 2 tablets (300 mg) by mouth every 12 hours. 4 tablet 0 rizatriptan (MAXALT) 10 mg tablet Take 1 tablet (10 mg) by mouth as needed for migraine headache (see administration instructions). May repeat dose after 2 hours if needed. Maximum daily dose is 30 mg per day. 18 tablet 2 dulaglutide (TRULICITY) 1.5 mg/0.5 mL pen injector Inject 1.5 mg subcutaneously one time a week. 4 Each 2 buPROPion XL (WELLBUTRIN XL) 150 mg 24 hr tablet Take 1 tablet by mouth once daily. 30 tablet 3 Blood-Glucose Meter 1 Device as directed. For once daily testing 1 Each 0 blood sugar diagnostic (BLOOD GLUCOSE TEST) test strip Test blood sugar(s) one times daily. Dx: Type 2 DM - Controlled E11.9 Insulin: No 50 Strip 11 Lancets Test blood sugar(s) one times daily. Dx: Type 2 DM - Controlled E11.9 Insulin: No 100 Each 11 Norethindrone, Contraceptive, (SELMA) 0.35 mg tablet Take 1 tablet by mouth once daily. 84 tablet 3 omeprazole (PRILOSEC) 20 mg capsule Take 1 capsule by mouth once daily. On empty stomach at least 30 minutes before eating. 90 capsule 1 ondansetron orally disintegrating (ZOFRAN ODT) 4 mg disintegrating tablet Take 1 tablet by mouth every 8 hours as needed for nausea/vomiting. 30 tablet 0 CPAP/BIPAP/OTHER Type .CPAPSettings into a note to see current settings/supplies/DME information. 1 Each 0 No current facility-administered medications for this visit. PAST SURGICAL HISTORY Procedure Laterality Date DDI [...] Social History Tobacco Use Smoking status: Former Current packs/day: 0.00 Types: Cigarettes Quit date: 2021 Years since quittin.8 Smokeless tobacco: Never Tobacco comments: Pt smoked 3 cigarettes daily x 2 months, quit 2021 Pt vapes Vaping Use Vaping status: current everyday user Substances: Nicotine, Flavoring Devices: Pre-filled or refillable cartridge Substance Use Topics Alcohol use: Not Currently Comment: occasional Drug use: Not Currently Types: Marijuana Objective BP 120/82 Pulse 97 Temp 36.4 ?C (97.6 ?F) Resp 18 Wt (!) 137.6 kg (303 lb 5.7 oz) LMP 03/31/2024 (Exact Date) SpO2 98% BMI 41.14 kg/m? Physical Exam Vitals reviewed. Constitutional: Appearance: Normal appearance. HENT: Head: Normocephalic and atraumatic. Right Ear: Tympanic membrane, ear canal and externa (more content not included)... Normal [facility] BACTERIAL VAGINOSIS NAATon 1 07-12-2023 Lactobacillus crispatus+gasseri+agustina senii + Gardnerella vaginalis + Atopobium vaginae rRNA EDMOND+probe Ql (Vag fld) Negative Normal Negative for bacterial vaginosis [facility] Comment on above: Order Comment: Speci men Type: BLOOD SPECIMEN Ordering Facility: [facility] Address: [address] [place] [address] Performed By: #### 3 016-3, 2841-3 #### [facility] CLIA [id number] [address] [place] [address] [place] YEIMY/TRICHOMONAS NAATon 07-12-2023 C. glabrata RNA EDMOND+probe Ql (Vag fld) Negative Normal Negative for Yeimy glabrata [facility] Comment on above: Order Comment: Speci men Type: BLOOD SPECIMEN Ordering Facility: [facility] Address: [address] [place] [address] Performed By: #### 3 016-3, 2842-3 #### [facility] CLIA [id number] [address] [place] [address] [place] Yeimy sp DNA EDMOND+probe Ql (Vag fld) Negative Normal Negative for Yeimy species [facility] Comment on above: Order Comment: Speci men Type: BLOOD SPECIMEN Ordering Facility: [facility] Address: [address] [place] [address] Performed By: #### 3 016-3, 2842-3 #### [facility] CLIA [id number] [address] [place] [address] [place] T. vaginalis DNA EDMOND+probe Ql (Unsp spec) Negative Normal Negative for Trichomonas vaginalis by amplification [facility] Comment on above: Order Comment: Speci men Type: BLOOD SPECIMEN Ordering Facility: [facility] Address: [address] [place] [address] Performed By: #### 3 016-3, 2842-3 #### [facility] CLIA [id number] [address] [place] [address] [place] CNOVon 05-12-2024 CNOV Office Visit (OBGYWM ) ----- YOSVANY FORDELILuz Gupta ([id number]) 2000 F Date Time Provider Department 05/12/24 4:00 PM REBECA BEASLEY OBGYWM During your visit today, we recorded the following information about you: Blood pressure Weight 120/80 136.6 kg Rebeca Beasley APRN.CNM 05/12/2024 4:49 PM 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 Katie Forde is a 23 year old female who presents for problem visit vulvar and vaginal itching. HPI: Complaint of recurrent vaginal yeast infections over last year. Prior to this year only 1 or 2 a year. Currently blood glucose under control and HgbA1C improved. Vaginal itching and vulvar itching. No new sexual partners and declines STD testing. 03/04/24 Fluconazole 150mg PO x 3 doses, no resolution. No testing completed 02/18/24 Monistat, no testing 02/10/24 Positive Yeimy 12/12/23 Positive Yeimy Fluconzaole 150mg PO once 09/11/23 Positive Yeimy Long-term Diflucan treatment ordered along with recommending boric acid vaginal suppositories x 14 nights and then weekly. Also recommended using boric acid vaginal suppositories after every active intercourse to maintain pH balance. Patient did not follow up with this plan. 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 History Comments: Sexual Activity: Not Currently; Male Contraception: None PAST MEDICAL HISTORY Diagnosis Date ADHD (attention [...] Social History Tobacco Use Smoking status: Former Current packs/day: 0.00 Types: Cigarettes Quit date: 2021 Years since quittin.8 Smokeless tobacco: Never Tobacco comments: Pt smoked 3 cigarettes daily x 2 months, quit 2021 Pt vapes Vaping Use Vaping status: current everyday user Substances: Nicotine, Flavoring Devices: Pre-filled or refillable cartridge Substance Use Topics Alcohol use: Not Currently Comment: occasional Drug use: Not Currently Types: Marijuana Current Outpatient Medications Medication Sig rizatriptan (MAXALT) 10 mg tablet Take 1 tablet (10 mg) by mouth as needed for migraine headache (see administration instructions). May repeat dose after 2 hours if needed. Maximum daily dose is 30 mg per day. amphetamine-dextroampheta mine XR (ADDERALL XR) 30 mg capsule Take 1 capsule by mouth every morning for 30 days. methylphenidate (RITALIN) 20 mg tablet Take 1 tablet by mouth as needed for up to 30 days. Take at approx. 3-4 pm. dulaglutide (TRULICITY) 1.5 mg/0.5 mL pen injector Inject 1.5 mg subcutaneously one time a week. buPROPion XL (WELLBUTRIN XL) 150 mg 24 hr tablet Take 1 tablet by mouth once daily. Blood-Glucose Meter 1 Device as directed. For once daily testing blood sugar diagnostic (BLOOD GLUCOSE TEST) test strip Test blood sugar(s) one times daily. Dx: Type 2 DM - Controlled E11.9 Insulin: No Lancets Test blood sugar(s) one times daily. Dx: Type 2 DM - Controlled E11.9 Insulin: No Norethindrone, Contraceptive, (SELMA) 0.35 mg tablet Take 1 tablet by mouth once daily. omeprazole (PRILOSEC) 20 mg capsule Take 1 capsule by mouth once daily. On empty stomach at least 30 minutes before eating. ondansetron orally disintegrating (ZOFRAN ODT) 4 mg disintegrating tablet Take 1 tablet by mouth every 8 hours as needed for nausea/vomiting. CPAP/BIPAP/OTHER Type .CPAPSettings into a note to see current settings/supplies/DME information. ibrexafungerp (BREXAFEMME) 150 mg tablet Take 2 tablets (300 mg) by mouth every 12 hours. No current facility-administered medications for this visit. Allergies As of Date: 05/12/2024 (No Known Allergies) Fully Assessed 05/12/2024 REVIEW OF SYSTEMS Abdomen: No bloating, early satiety, indigestion, or increased flatulence. No abdominal pain, nausea, vomiting, diarrhea, or constipation. Bladder: No dysuria, gross hematuria, urinary frequency, urinary urge (more content not included)... Normal [facility] Anthony 05-03-2024 [facility] Telephone (INTMWS) ----- KATIE FORDE Candy ([id number]) 2000 F Date Time Provider Department 05/03/24 SHER HOLLINGSWORTH During your visit today, we recorded the following information about you: Allergies As of Date: 05/03/2024 (No Known Allergies) Date Reviewed: 04/30/2024 Reviewed by: Sher Hollingsworth APRN.[employer] - Fully Assessed Reason for Visit: Results [95] Prescriptions as of 05/05/2024 - rizatriptan (MAXALT) 10 mg tablet Take 1 tablet (10 mg) by mouth as needed for migraine headache (see administration instructions). May repeat dose after 2 hours if needed. Maximum daily dose is 30 mg per day. - amphetamine-dextroampheta mine XR (ADDERALL XR) 30 mg capsule Take 1 capsule by mouth every morning for 30 days. - methylphenidate (RITALIN) 20 mg tablet Take 1 tablet by mouth as needed for up to 30 days. Take at approx. 3-4 pm. - dulaglutide (TRULICITY) 1.5 mg/0.5 mL pen injector Inject 1.5 mg subcutaneously one time a week. - buPROPion XL (WELLBUTRIN XL) 150 mg 24 hr tablet Take 1 tablet by mouth once daily. - Blood-Glucose Meter 1 Device as directed. For once daily testing - blood sugar diagnostic (BLOOD GLUCOSE TEST) test strip Test blood sugar(s) one times daily. Dx: Type 2 DM - Controlled E11.9 Insulin: No - Lancets Test blood sugar(s) one times daily. Dx: Type 2 DM - Controlled E11.9 Insulin: No - Norethindrone, Contraceptive, (SELMA) 0.35 mg tablet Take 1 tablet by mouth once daily. - omeprazole (PRILOSEC) 20 mg capsule Take 1 capsule by mouth once daily. On empty stomach at least 30 minutes before eating. - ondansetron orally disintegrating (ZOFRAN ODT) 4 mg disintegrating tablet Take 1 tablet by mouth every 8 hours as needed for nausea/vomiting. - CPAP/BIPAP/OTHER Type .CPAPSettings into a note to see current settings/supplies/DME information. Problem List As Of Date 05/03/2024 Noted Resolved MARFAN'S SYNDROME [Q87.40] 03/05/2006 Viral warts, unspecified [B07.9] 06/25/2008 10/08/2011 Attention deficit hyperactivity disorder (ADHD)*09/22/2008 Subluxation of lens [H27.119] Outbursts of anger [R45.4] 10/12/2012 Delayed immunizations [Z28.9] 11/19/2012 01/23/2016 Depression [F32.A] 09/24/2013 Depersonalization disorder [F48.1] 12/05/2015 Migraine without status migrainosus, not intrac*04/22/2016 Oppositional defiant disorder [F91.3] 02/03/2017 BMI (body mass index), pediatric, 85% to less t*09/16/2017 12/15/2023 BMI (body mass index), pediatric, greater than *04/13/2019 12/15/2023 Lab test positive for detection of COVID-19 vir*07/04/2020 Anxiety [F41.9] 03/12/2022 Pain in right foot [M79.671] 03/12/2022 Obesity, Class III, BMI >= 40 [E66.01] 09/30/2022 Obesity, Class II, BMI 35-39.9 [E66.812] 01/20/2023 12/15/2023 Type 2 diabetes mellitus without complication, *01/27/2024 Fatty liver [K76.0] 01/27/2024 Encounter Status:Closed by SHER HOLLINGSWORTH on 05/03/24 Normal [facility] ALBUMIN/CREATININE RATIO, UR INEon 04-30-2024 Albumin DL <= 20 mg/L (U) [Mass/Vol] mg/dL Normal [facility] Comment on above: Order Comment: Speci men Type: URINE SPECIMENOrdering Facility: [facility] Address: [address] [place], [place] [address] [address] Performed By: #### U ACR ####[facility] [id number] [place] [address] [place] Albumin/Creatinine (U) [Mass ratio] <7 Normal <30 [facility] Comment on above: Order Comment: Speci men Type: URINE SPECIMENOrdering Facility: [facility] Address: [address] [place] [address] Result Comment: Adul t Male and Female Nephrotic Criteria: <30 mg/g is considered normal to mildly increased 30-300 mg/g is considered moderately increased >300 mg/g is considered severely increased KDIGO. (2013). KDIGO 2012 Clinical Practice Guideline for the Evaluation and Management of Chronic Kidney Disease. Official Journal of the International Society of Nephrology, 3(1), 1-150. Performed By: #### U ACR ####[facility]CLIA [id number] [place] [address] [place] Creatinine (U) [Mass/Vol] 177.1 mg/dL Normal 20.0-300.0 [facility] Comment on above: Order Comment: Speci men Type: URINE SPECIMENOrdering Facility: [facility] Address: [address] [place] [address] Performed By: #### U ACR ####[facility] LABIA [id number] [place] [address] [place] Bacteria Ur Culton Bacteria identified Cx Nom (U) ORGANISM ID: 1 10,000 -<50,000 CFU/ml Normal urogenital ilana Streptococcus agalactiae (Group B streptococcus) was identified in this specimen, which is clinically relevant if the individual is . Normal [facility] Comment on above: Performed By: #### 6 30-4 ####[facility]CLIA [id number] [place] [address] [place] CBC W Auto Differential pane l (Bld)on 04-30-2024 Basophils (Bld) [#/Vol] 0.12 10*3/uL High <0.11 [facility] Comment on above: Order Comment: Speci men Type: BLOOD SPECIMEN Ordering Facility: [facility] Address: [address] [place] [address] Performed By: #### 3 016-3, 2842-3 #### [facility] CLIA [id number] [address] [place] [address] [place] Basophils/100 WBC (Bld) 1.1 % Normal [facility] Comment on above: Order Comment: Speci men Type: BLOOD SPECIMEN Ordering Facility: [facility] Address: [address] [place] [address] Performed By: #### 3 016-3, 2842-3 #### [facility] CLIA [id number] [address] [place] [address] [place] Differential cell count method Nom (Bld) Auto Normal [facility] Comment on above: Order Comment: Speci men Type: BLOOD SPECIMEN Ordering Facility: [facility] Address: [address] [place] [address] Performed By: #### 3 016-3, 2842-3 #### [facility] CLIA [id number] [address] [place] [address] [place] Eosinophils (Bld) [#/Vol] 0.12 10*3/uL Normal <0.46 [facility] Comment on above: Order Comment: Speci men Type: BLOOD SPECIMEN Ordering Facility: [facility] Address: [address] [place] [address] Performed By: #### 3 016-3, 2842-3 #### [facility] CLIA [id number] [address] [place] [address] [place] Eosinophils/100 WBC (Bld) 1.1 % Normal [facility] Comment on above: Order Comment: Speci men Type: BLOOD SPECIMEN Ordering Facility: [facility] Address: [address] [place] [address] Performed By: #### 3 016-3, 2842-3 #### [facility] CLIA [id number] [address] [place] [address] [place] Erythrocyte distribution width (RBC) [Ratio] 12.2 % Normal 11.5-15.0 [facility] Comment on above: Order Comment: Speci men Type: BLOOD SPECIMEN Ordering Facility: [facility] Address: [address] [place] [address] Performed By: #### 3 016-3, 2842-3 #### [facility] CLIA [id number] [address] [place] [address] [place] Hematocrit (Bld) [Volume fraction] 45.0 % Normal 36.0-46.0 [facility] Comment on above: Order Comment: Speci men Type: BLOOD SPECIMEN Ordering Facility: [facility] Address: [address] [place] [address] Performed By: #### 3 016-3, 2842-3 #### [facility] CLIA [id number] [address] [place] [address] [place] Hemoglobin (Bld) [Mass/Vol] 14.8 g/dL Normal 11.5-15.5 [facility] Comment on above: Order Comment: Speci men Type: BLOOD SPECIMEN Ordering Facility: [facility] Address: [address] [place] [address] Performed By: #### 3 016-3, 2842-3 #### [facility] CLIA [id number] [address] [place] [address] [place] Immature granulocytes (Bld) [#/Vol] 10*3/uL Normal <0.10 [facility] Comment on above: Order Comment: Speci men Type: BLOOD SPECIMEN Ordering Facility: [facility] Address: [address] [place] [address] Performed By: #### 3 016-3, 2842-3 #### [facility] CLIA [id number] [address] [place] [address] [place] Immature granulocytes/100 WBC (Bld) 0.2 % Normal [facility] Comment on above: Order Comment: Speci men Type: BLOOD SPECIMEN Ordering Facility: [facility] Address: [address] [place] [address] Performed By: #### 3 016-3, 2842-3 #### [facility] CLIA [id number] [address] [place] [address] [place] Lymphocytes (Bld) [#/Vol] 3.60 10*3/uL Normal 1.00-4.00 [facility] Comment on above: Order Comment: Speci men Type: BLOOD SPECIMEN Ordering Facility: [facility] Address: [address] [place] [address] Performed By: #### 3 016-3, 2842-3 #### [facility] CLIA [id number] [address] [place] [address] [place] Lymphocytes/100 WBC (Bld) 34.5 % Normal [facility] Comment on above: Order Comment: Speci men Type: BLOOD SPECIMEN Ordering Facility: [facility] Address: [address] [place] [address] Performed By: #### 3 016-3, 2842-3 #### [facility] CLIA [id number] [address] [place] [address] [place] MCH (RBC) [Entitic mass] 30.1 pg Normal 26.0-34.0 [facility] Comment on above: Order Comment: Speci men Type: BLOOD SPECIMEN Ordering Facility: [facility] Address: [address] [place] [address] Performed By: #### 3 016-3, 2842-3 #### [facility] CLIA [id number] [address] [place] [address] [place] MCHC (RBC) [Mass/Vol] 32.9 g/dL Normal 30.5-36.0 [facility] Comment on above: Order Comment: Speci men Type: BLOOD SPECIMEN Ordering Facility: [facility] Address: [address] [place] [address] Performed By: #### 3 016-3, 2842-3 #### [facility] CLIA [id number] [address] [place] [address] [place] MCV (RBC) [Entitic vol] 91.6 fL Normal 80.0-100.0 [facility] Comment on above: Order Comment: Speci men Type: BLOOD SPECIMEN Ordering Facility: [facility] Address: [address] [place] [address] Performed By: #### 3 016-3, 2842-3 #### [facility] CLIA [id number] [address] [place] [address] [place] Monocytes (Bld) [#/Vol] 0.66 10*3/uL Normal <0.87 [facility] Comment on above: Order Comment: Speci men Type: BLOOD SPECIMEN Ordering Facility: [facility] Address: [address] [place] [address] Performed By: #### 3 016-3, 2842-3 #### [facility] CLIA [id number] [address] [place] [address] [place] Monocytes/100 WBC (Bld) 6.3 % Normal [facility] Comment on above: Order Comment: Speci men Type: BLOOD SPECIMEN Ordering Facility: [facility] Address: [address] [place] [address] Performed By: #### 3 016-3, 2842-3 #### [facility] CLIA [id number] [address] [place] [address] [place] Neutrophils (Bld) [#/Vol] 5.92 10*3/uL Normal 1.45-7.50 [facility] Comment on above: Order Comment: Speci men Type: BLOOD SPECIMEN Ordering Facility: [facility] Address: [address], [place] [address] Performed By: #### 3 016-3, 2842-3 #### [facility] CLIA [id number] [address] [place] [address] [place] Neutrophils/100 WBC (Bld) 56.8 % Normal [facility] Comment on above: Order Comment: Speci men Type: BLOOD SPECIMEN Ordering Facility: [facility] Address: [address] [place] [address] Performed By: #### 3 016-3, 2842-3 #### [facility] CLIA [id number] [address] [place] [address] [place] Nucleated RBC (Bld) [#/Vol] 10*3/uL Normal <0.01 [facility] Comment on above: Order Comment: Speci men Type: BLOOD SPECIMEN Ordering Facility: [facility] Address: [address] [place] [address] Performed By: #### 3 016-3, 284-3 #### [facility] CLIA [id number] [address] [place] [address] [place] Nucleated RBC/100 WBC (Bld) [Ratio] 0.0 /100 WBC Normal [facility] Comment on above: Order Comment: Speci men Type: BLOOD SPECIMEN Ordering Facility: [facility] Address: [address] [place] [address] Performed By: #### 3 016-3, 2842-3 #### [facility] CLIA [id number] [address] [place] [address] [place] Platelet mean volume (Bld) [Entitic vol] 10.2 fL Normal 9.0-12.7 [facility] Comment on above: Order Comment: Speci men Type: BLOOD SPECIMEN Ordering Facility: [facility] Address: [address] [place] [address] Performed By: #### 3 016-3, 2842-3 #### [facility] CLIA [id number] [address] [place] [address] [place] Platelets (Bld) [#/Vol] 500 10*3/uL High 150-400 [facility] Comment on above: Order Comment: Speci men Type: BLOOD SPECIMEN Ordering Facility: [facility] Address: [address] [place] [address] Performed By: #### 3 016-3, 2842-3 #### [facility] CLIA [id number] [address] [place] [address] [place] RBC (Bld) [#/Vol] 4.91 10*6/uL Normal 3.90-5.20 [facility] Comment on above: Order Comment: Speci men Type: BLOOD SPECIMEN Ordering Facility: [facility] Address: [address] [place] [address] Performed By: #### 3 016-3, 2842-3 #### [facility] CLIA [id number] [address] [place] [address] [place] WBC (Bld) [#/Vol] 10.44 10*3/uL Normal 3.70-11.00 [facility] Comment on above: Order Comment: Speci men Type: BLOOD SPECIMEN Ordering Facility: [facility] Address: [address] [place] [address] Performed By: #### 3 016-3, 2842-3 #### [facility] CLIA [id number] [address] [place] [address] [place] CNOVon 04-30-2024 CNOV Office Visit (INTMWS ) ----- KATIE FORDE ([id number]) 2000 F Date Time Provider Department 04/30/24 1:00 PM DARRICK, SHER INTDIMITRI During your visit today, we recorded the following information about you: Pulse Blood pressure Weight Last Period 95/minute 110/82 136.1 kg 03/31/24 Sher Hollingsworth APRN.[employer] 04/30/2024 1:35 PM Signed SUBJECTIVE Katie Forde is a 23 year old female here today for a check up on her medical problems. Chief Complaint Patient presents with: Recheck Urinary Frequency HPI Katie Forde is a 23 year old female. She is an established patient of Kate Silva MD. Here today for follow up, accompanied by mom. Follow up on DM, sugars are running mostly low 100's-90's. Injection seems more painful with the higher dose. Had some low abdominal pain but thinks this resolved. Some cramping, some urinary frequency. Has been working with [employer] for issues with persistent vaginal yeast infections. Still issues with migraines. Imitrex not as helpful. Getting migraines frequently. Thinks 10 a month. Her medications were reviewed today and her list is now up to date. Medications Current Outpatient Medications Medication Sig amphetamine-dextroampheta mine XR (ADDERALL XR) 30 mg capsule Take 1 capsule by mouth every morning for 30 days. methylphenidate (RITALIN) 20 mg tablet Take 1 tablet by mouth as needed for up to 30 days. Take at approx. 3-4 pm. dulaglutide (TRULICITY) 1.5 mg/0.5 mL pen injector Inject 1.5 mg subcutaneously one time a week. buPROPion XL (WELLBUTRIN XL) 150 mg 24 hr tablet Take 1 tablet by mouth once daily. Norethindrone, Contraceptive, (SELMA) 0.35 mg tablet Take 1 tablet by mouth once daily. omeprazole (PRILOSEC) 20 mg capsule Take 1 capsule by mouth once daily. On empty stomach at least 30 minutes before eating. ondansetron orally disintegrating (ZOFRAN ODT) 4 mg disintegrating tablet Take 1 tablet by mouth every 8 hours as needed for nausea/vomiting. rizatriptan (MAXALT) 10 mg tablet Take 1 tablet (10 mg) by mouth as needed for migraine headache (see administration instructions). May repeat dose after 2 hours if needed. Maximum daily dose is 30 mg per day. Blood-Glucose Meter 1 Device as directed. For once daily testing blood sugar diagnostic (BLOOD GLUCOSE TEST) test strip Test blood sugar(s) one times daily. Dx: Type 2 DM - Controlled E11.9 Insulin: No Lancets Test blood sugar(s) one times daily. Dx: Type 2 DM - Controlled E11.9 Insulin: No CPAP/BIPAP/OTHER Type .CPAPSettings into a note to see current settings/supplies/DME information. No current facility-administered medications for this visit. ALLERGIES No Known Allergies ACTIVE PROBLEM LIST Type 2 Diabetes Mellitus Without Complication, Without Long-Term Current Use of Insulin (Hcc) - 01/27/2024 Fatty Liver - 01/27/2024 Obesity, Class III, BMI >= 40 - 09/30/2022 Anxiety - 03/12/2022 Pain in Right Foot - 03/12/2022 Lab Test Positive for Detection of Covid-19 Virus - 07/04/2020 Oppositional Defiant Disorder - 02/03/2017 Migraine Without Status Migrainosus, Not Intractable - 04/22/2016 Depersonalization Disorder (Hcc) - 12/05/2015 Depression - 09/24/2013 Comment: followed by psychiatry Outbursts of Anger - 10/12/2012 Subluxation of Lens Comment: bilaterally Attention Deficit Hyperactivity Disorder (Adhd), Combined Type - 09/22/2008 Marfan's Syndrome - 03/05/2006 Social History Tobacco Use Smoking status: Former Current packs/day: 0.00 Types: Cigarettes Quit date: 2021 Years since quittin.8 Smokeless tobacco: Never Tobacco comments: Pt smoked 3 cigarettes daily x 2 months, quit 2021 Pt vapes Vaping Use Vaping status: current everyday user Substances: Nicotine, Flavoring Devices: Pre-filled or refillable cartridge Substance Use Topics Alcohol use: Not Currently Comment: occasional Drug use: Not Currently Types: Marijuana Review of Systems Constitutional: Negative. Respiratory: Negative. Cardiovascular: Negative. OBJECTIVE BP 110/82 Pulse 95 Wt 300 lb 0.7 oz (136.1kg) SpO2 99% LMP 03/31/2024 Physical Exam Vitals and nursing note reviewed. Constitutional: General: She is awake. She is not in acute distress. Appearance: Normal appearance. She is well-developed and well-groomed. She is not ill-appearing, toxic-appearing or diaphoretic. HENT: Head: Normocephalic. Right Ear: External ear normal. Left Ear: External ear normal. Nose: Nose normal. Eyes: General: Vision grossly intact. Conjunctiva/sclera: Conjunctivae normal. Pupils: Pupils are equal, round, and reactive to light. Neck: Vascular: No JVD. Trachea: Trachea normal. Cardiovascular: Pulses: Normal pulses. Dorsalis pedis pulses are 2+ on the right side and 2+ on the left side. Posterior tibial pulses are 2+ on the right side and 2+ on the left side. (more content not included)... Normal [facility] Comprehensive metabolic 2000 panelon 04-30-2024 Albumin [Mass/Vol] 4.0 g/dL Normal 3.9-4.9 [facility] Comment on above: Order Comment: Kareni minna Type: BLOOD SPECIMEN Ordering Facility: [facility] Address: [address] [place] [address] Performed By: #### 2 4323-8, LIPNF #### [facility] CLIA [id number] [address] [place] [address] [place] ALP [Catalytic activity/Vol] 74 U/L Normal 34-123 [facility] Comment on above: Order Comment: Lore buitrago Type: BLOOD SPECIMEN Ordering Facility: [facility] Address: [address] [place] [address] Performed By: #### 2 4323-8, LIPNF #### [facility] CLIA [id number] [address] [place] [address] [place] ALT [Catalytic activity/Vol] 83 U/L High 7-38 [facility] Comment on above: Order Comment: Speci men Type: BLOOD SPECIMEN Ordering Facility: [facility] Address: [address] [place] [address] Performed By: #### 2 4323-8, LIPNF #### [facility] CLIA [id number] [address] [place] [address] [place] Anion gap [Moles/Vol] 12 mmol/L Normal 8-15 [facility] Comment on above: Order Comment: Speci men Type: BLOOD SPECIMEN Ordering Facility: [facility] Address: [address] [place] [address] Performed By: #### 2 4323-8, LIPNF #### [facility] CLIA [id number] [address] [place] [address] [place] AST [Catalytic activity/Vol] 45 U/L High 13-35 [facility] Comment on above: Order Comment: Speci men Type: BLOOD SPECIMEN Ordering Facility: [facility] Address: [address] [place] [address] Performed By: #### 2 4323-8, LIPNF #### [facility] CLIA [id number] [address] [place] [address] [place] Bilirubin [Mass/Vol] 0.3 mg/dL Normal 0.2-1.3 [facility] Comment on above: Order Comment: Speci men Type: BLOOD SPECIMEN Ordering Facility: [facility] Address: [address] [place] [address] Performed By: #### 2 4323-8, LIPNF #### [facility] CLIA [id number] [address] [place] [address] [place] Calcium [Mass/Vol] 9.3 mg/dL Normal 8.5-10.2 [facility] Comment on above: Order Comment: Speci men Type: BLOOD SPECIMEN Ordering Facility: [facility] Address: [address] [place] [address] Performed By: #### 2 4323-8, LIPNF #### [facility] CLIA [id number] [address] [place] [address] [place] Chloride [Moles/Vol] 104 mmol/L Normal 98-107 [facility] Comment on above: Order Comment: Speci men Type: BLOOD SPECIMEN Ordering Facility: [facility] Address: [address] [place] [address] Performed By: #### 2 4323-8, LIPNF #### [facility] CLIA [id number] [address] [place] [address] [place] CO2 [Moles/Vol] 23 mmol/L Normal 22-30 [facility] Comment on above: Order Comment: Speci men Type: BLOOD SPECIMEN Ordering Facility: [facility] Address: [address] [place] [address] Performed By: #### 2 4323-8, LIPNF #### [facility] CLIA [id number] [address] [place] [address] [place] Creatinine [Mass/Vol] 0.82 mg/dL Normal 0.58-0.96 [facility] Comment on above: Order Comment: Speci men Type: BLOOD SPECIMEN Ordering Facility: [facility] Address: [address] [place] [address] Performed By: #### 2 4323-8, LIPNF #### [facility] CLIA [id number] [address] [place] [address] [place] Creatinine and Glomerular filtration rate.predicted panel (S/P/Bld) 102 mL/min/1.73m??? Normal >=60 [facility] Comment on above: Order Comment: Speci men Type: BLOOD SPECIMEN Ordering Facility: [facility] Address: [address] [place] [address] Result Comment: Shantal mated Glomerular Filtration Rate (eGFR) is calculated using the 2020 CKD-EPI creatinine equation. This equation utilizes serum creatinine, sex, and age as parameters. The creatinine assay has traceable calibration to isotope dilution-mass spectrometry. Refer to KDIGO guidelines for clinical interpretation. In patients with unstable renal function, e.g. those with acute kidney injury, the eGFR may not accurately reflect actual GFR. Performed By: #### 2 4323-8, LIPNF #### [facility] CLIA [id number] [address] [place] [address] [place] Glucose [Mass/Vol] 93 mg/dL Normal 74-99 [facility] Comment on above: Order Comment: Lore buitrago Type: BLOOD SPECIMEN Ordering Facility: [facility] Address: [address] [place] [address] Result Comment: The [place] Diabetes Association (ADA) provides guidance for cutoff values for fasting glucose and random glucose. The ADA defines fasting as no caloric intake for at least 8 hours. Fasting plasma glucose results between 100 to 125 mg/dL indicate increased risk for diabetes (prediabetes). Fasting plasma glucose results greater than or equal to 126 mg/dL meet the criteria for diagnosis of diabetes. In the absence of unequivocal hyperglycemia, results should be confirmed by repeat testing. In a patient with classic symptoms of hyperglycemia or hyperglycemic crisis, random plasma glucose results greater than or equal to 200 mg/dL meet the criteria for diagnosis of diabetes. Reference: Standards of Medical Care in Diabetes 2016, [place] Diabetes Association. Diabetes Care. 2016.39(Suppl 1). Performed By: #### 2 4323-8, LIPNF #### [facility] CLIA [id number] [address] [place] [address] [place] Potassium [Moles/Vol] 4.5 mmol/L Normal 3.7-5.1 [facility] Comment on above: Order Comment: Lore buitrago Type: BLOOD SPECIMEN Ordering Facility: [facility] Address: [address] [place] [address] Performed By: #### 2 4323-8, LIPNF #### [facility] CLIA [id number] [address] [place] [address] [place] Protein [Mass/Vol] 7.9 g/dL Normal 6.3-8.0 [facility] Comment on above: Order Comment: Lore buitrago Type: BLOOD SPECIMEN Ordering Facility: [facility] Address: [address] [place] [address] Performed By: #### 2 4323-8, LIPNF #### [facility] CLIA [id number] [address] [place] [address] [place] Sodium [Moles/Vol] 139 mmol/L Normal 136-144 [facility] Comment on above: Order Comment: Lore men Type: BLOOD SPECIMEN Ordering Facility: [facility] Address: [address] [place] [address] Performed By: #### 2 4323-8, LIPNF #### [facility] CLIA [id number] [address] [place] [address] [place] Urea nitrogen [Mass/Vol] 8 mg/dL Normal 7-21 [facility] Comment on above: Order Comment: Lore men Type: BLOOD SPECIMEN Ordering Facility: [facility] Address: [address] [place] [address] Performed By: #### 2 4323-8, LIPNF #### [facility] CLIA [id number] [address] [place] [address] [place] HbA1c (Bld)on 04-30-2024 Average glucose Estimated from glycated hemoglobin (Bld) [Mass/Vol] 105 mg/dL Normal [facility] Comment on above: Order Comment: Lore men Type: BLOOD SPECIMEN Ordering Facility: [facility] Address: [address] [place] [address] Result Comment: eAG: (Estimated average glucose) is a calculated value from HgbA1c and is territory service representative of the average blood glucose level in the last 2-3 month period. Performed By: #### 3 016-3, 2842-3 #### [facility] CLIA [id number] [address] [place] [address] [place] HbA1c (Bld) [Mass fraction] 5.3 % Normal 4.3-5.6 [facility] Comment on above: Order Comment: Lore men Type: BLOOD SPECIMEN Ordering Facility: [facility] Address: [address] [place] [address] Result Comment: [place] Diabetes Association guidelines indicate that patients with HgbA1c in the range 5.7-6.4% are at increased risk for development of diabetes, and intervention by lifestyle modification may be beneficial. HgbA1c greater or equal to 6.5% is considered diagnostic of diabetes. Performed By: #### 3 016-3, 2842-3 #### [facility] CLIA [id number] [facility] [address] [place] LIPID PANEL, NONFASTINGon Cholesterol [Mass/Vol] 189 mg/dL Normal <200 [facility] Comment on above: Order Comment: Speci men Type: BLOOD SPECIMEN Ordering Facility: [facility] Address: [address] [place] [address] Result Comment: <200 mg/dL, Desirable 200-239 mg/dL, Borderline high >239 mg/dL, High Performed By: #### 2 4323-8, LIPNF #### [facility] CLIA [id number] [address] [place] [address] [place] HDL CHOLESTEROL, NF 36 mg/dL Low >39 [facility] Comment on above: Order Comment: Speci men Type: BLOOD SPECIMEN Ordering Facility: [facility] Address: [address] [place] [address] Result Comment: 40-5 9 mg/dL, Acceptable >59 mg/dL, High: Negative risk factor for coronary heart disease <40 mg/dL, Low: Positive risk factor for coronary heart disease Performed By: #### 2 4323-8, LIPNF #### [facility] CLIA [id number] [address] [place] [address] [place] LDL CHOLESTEROL, NF 131 mg/dL High <100 [facility] Comment on above: Order Comment: Speci men Type: BLOOD SPECIMEN Ordering Facility: [facility] Address: [address] [place] [address] Result Comment: <100 mg/dL, Optimal 100-129 mg/dL, Near optimal/above optimal 130-159 mg/dL, Borderline high 160-189 mg/dL, High >189 mg/dL, Very high Secondary prevention optimal LDL Cholesterol levels are recommended to be < 70 mg/dL Performed By: #### 2 4323-8, LIPNF #### [facility] CLIA [id number] [address] [place] [address] [place] LDL/HDL RATIO, NF 3.64 mg/dL High <2.54 [facility] Comment on above: Order Comment: Lore buitrago Type: BLOOD SPECIMEN Ordering Facility: [facility] Address: [address] [place] [address] Result Comment: Refe karinace: 1. National Cholesterol Education Program ATP III Guideline At-A-Glance Quick Desk Reference: National Heart, Lung, and Blood [place]. National Institutes of Health. 2001: NIH Publication No. 01-3305. 2. An International Atherosclerosis Society position paper: global recommendations for the management of dyslipidemia: executive summary, Atherosclerosis. 2014: 232(2):410-413. Performed By: #### 2 4323-8, LIPNF #### [facility] CLIA [id number] [address] [place] [address] [place] NON HDL CHOL, NF 153 mg/dL High <130 [facility] Comment on above: Order Comment: Lore buitrago Type: BLOOD SPECIMEN Ordering Facility: [facility] Address: [address] [place] [address] Result Comment: <130 mg/dL, Optimal 130-159 mg/dL, Near optimal/above optimal 160-189 mg/dL, Borderline high 190-219 mg/dL, High >219 mg/dL, Very high Secondary prevention optimal non HDL Cholesterol levels are recommended to be <100 mg/dL Performed By: #### 2 4323-8, LIPNF #### [facility] CLIA [id number] [address] [place] [address] [place] T CHOL/HDL RATIO NF 5.25 mg/dL High <5.10 [facility] Comment on above: Order Comment: Lore minna Type: BLOOD SPECIMEN Ordering Facility: [facility] Address: [address] [place] [address] Performed By: #### 2 4323-8, LIPNF #### [facility] CLIA [id number] [address] [place] [address] [place] TRIGLYCERIDES, NF 108 mg/dL Normal <150 [facility] Comment on above: Order Comment: Speci men Type: BLOOD SPECIMEN Ordering Facility: [facility] Address: [address] [place] [address] Result Comment: <150 mg/dL, Normal 150-199 mg/dL, Borderline high 200-499 mg/dL, High >499 mg/dL, Very high Performed By: #### 2 4323-8, LIPNF #### [facility] CLIA [id number] [address] [place] [address] [place] VLDL CHOLESTEROL, NF 22 mg/dL Normal <30 [facility] Comment on above: Order Comment: Speci men Type: BLOOD SPECIMEN Ordering Facility: [facility] Address: [address] [place] [address] Performed By: #### 2 4323-8, LIPNF #### [facility] CLIA [id number] [address] [place] [address] [place] UA DIP, URINE (POC)on 2023 BILIRUBIN UA (POCT) Negative Negative [facility] CLARITY UA (POCT) Slightly Cloudy [facility] COLOR UA (POCT) Yellow [facility] GLUCOSE UA (POCT) Negative Negative mg/dL [facility] Hemoglobin Ql (U) Trace-lysed Abnormal Negative [facility] Interpretation and review of laboratory results Abnormal [facility] KETONE UA (POCT) Negative Negative mg/dL [facility] LEUKOCYTES UA (POCT) Trace Abnormal Negative [facility] NITRITE UA (POCT) Negative Negative [facility] PH UA (POCT) 5.5 4.5 - 8.0 [facility] Protein Ql (U) Negative Negative mg/dL [facility] SPECIFIC GRAVITY UA (POCT) >=1.030 1.005 - 1.030 [facility] UROBILINOGEN UA (POCT) 0.2 Normal E.U./dL [facility] Location:[address], [place], [place], [id number] [place] [address] POINT OF CARE [facility] CNOVon 03-19-2024 CNOV Office Visit (INTMWS ) ----- KATIE FORDE ([id number]) 2000 F Date Time Provider Department 03/19/24 10:00 AM SHER [place] During your visit today, we recorded the following information about you: Pulse Blood pressure Weight 103/minute 118/88 139.2 kg Sher Hollingsworth APRN.ELECTRIC STOVE MECHANIC 03/19/2024 11:03 AM Signed SUBJECTIVE Katie Forde is a 23 year old female here today for a check up on her medical problems. Chief Complaint Patient presents with: F/U 3 Month: diabetes HPI Katie Forde is a 23 year old female. She is an established patient of Kate Silva MD. Here today for follow up. Accompanied by mother. Currently on Trulicity for newly diagnosed DM, tolerating this well. Weight down. Checking sugars on the weekends, running low 100's on average. Wants help to quit vaping. Her medications were reviewed today and her list is now up to date. Medications Current Outpatient Medications Medication Sig amphetamine-dextroampheta mine XR (ADDERALL XR) 30 mg capsule Take 1 capsule by mouth every morning for 30 days. methylphenidate (RITALIN) 20 mg tablet Take 1 tablet by mouth as needed for up to 30 days. Take at approx. 3-4 pm. SUMAtriptan (IMITREX) 100 mg tablet Take 1 tablet (100 mg) by mouth as needed for migraine headache (see administration instructions). Take 1 by mouth at onset of migraine. May repeat after 2 hours as needed Norethindrone, Contraceptive, (SELMA) 0.35 mg tablet Take 1 tablet by mouth once daily. omeprazole (PRILOSEC) 20 mg capsule Take 1 capsule by mouth once daily. On empty stomach at least 30 minutes before eating. ondansetron orally disintegrating (ZOFRAN ODT) 4 mg disintegrating tablet Take 1 tablet by mouth every 8 hours as needed for nausea/vomiting. dulaglutide (TRULICITY) 1.5 mg/0.5 mL pen injector Inject 1.5 mg subcutaneously one time a week. buPROPion XL (WELLBUTRIN XL) 150 mg 24 hr tablet Take 1 tablet by mouth once daily. Blood-Glucose Meter 1 Device as directed. For once daily testing blood sugar diagnostic (BLOOD GLUCOSE TEST) test strip Test blood sugar(s) one times daily. Dx: Type 2 DM - Controlled E11.9 Insulin: No Lancets Test blood sugar(s) one times daily. Dx: Type 2 DM - Controlled E11.9 Insulin: No CPAP/BIPAP/OTHER Type .CPAPSettings into a note to see current settings/supplies/DME information. No current facility-administered medications for this visit. ALLERGIES No Known Allergies ACTIVE PROBLEM LIST Type 2 Diabetes Mellitus Without Complication, Without Long-Term Current Use of Insulin (Hcc) - 01/27/2024 Fatty Liver - 01/27/2024 Obesity, Class III, BMI >= 40 - 09/30/2022 Anxiety - 03/12/2022 Pain in Right Foot - 03/12/2022 Lab Test Positive for Detection of Covid-19 Virus - 07/04/2020 Oppositional Defiant Disorder - 02/03/2017 Migraine Without Status Migrainosus, Not Intractable - 04/22/2016 Depersonalization Disorder (Hcc) - 12/05/2015 Depression - 09/24/2013 Comment: followed by psychiatry Outbursts of Anger - 10/12/2012 Subluxation of Lens Comment: bilaterally Attention Deficit Hyperactivity Disorder (Adhd), Combined Type - 09/22/2008 Marfan's Syndrome - 03/05/2006 Social History Tobacco Use Smoking status: Former Current packs/day: 0.00 Types: Cigarettes Quit date: 2021 Years since quittin.7 Smokeless tobacco: Never Tobacco comments: Pt smoked 3 cigarettes daily x 2 months, quit 2021 Pt vapes Vaping Use Vaping status: current everyday user Substances: Nicotine, Flavoring Devices: Pre-filled or refillable cartridge Substance Use Topics Alcohol use: Not Currently Comment: occasional Drug use: Not Currently Types: Marijuana Review of Systems Constitutional: Negative. Respiratory: Negative. Cardiovascular: Negative. OBJECTIVE BP 118/88 Pulse 103 Wt 306 lb 14.1 oz (139.2kg) SpO2 97% LMP 03/02/2024 Physical Exam Vitals and nursing note reviewed. Constitutional: General: She is awake. She is not in acute distress. Appearance: Normal appearance. She is well-developed and well-groomed. She is not ill-appearing, toxic-appearing or diaphoretic. HENT: Head: Normocephalic. Right Ear: External ear normal. Left Ear: External ear normal. Nose: Nose normal. Eyes: General: Vision grossly intact. Conjunctiva/sclera: Conjunctivae normal. Pupils: Pupils are equal, round, and reactive to light. Neck: Vascular: No JVD. Trachea: Trachea normal. Cardiovascular: Rate and Rhythm: Normal rate and regular rhythm. Pulses: Normal pulses. Heart sounds: Normal heart sounds. No murmur heard. Pulmonary: Effort: Pulmonary effort is normal. No accessory muscle usage, prolonged expiration or respiratory distress. Breath sounds: Normal breath sounds. Musculoskeletal: Cervical back: Neck supple. Skin: General: Skin is warm and dry. Capillary Refill: Capillary (more content not included)... Normal [facility] CNOVon 03-04-2024 CNOV Office Visit (OBGYWM ) ----- YOSVANY FORDEKIKA Gupta ([id number]) 2000 F Date Time Provider Department 03/04/24 12:45 PM PAT FERRER OBGYWM During your visit today, we recorded the following information about you: Blood pressure Weight Last Period 124/76 142 kg 03/02/24 Pat Ferrer APRN.ELECTRIC STOVE MECHANIC 03/04/2024 12:54 PM Signed Katie Gupta Jonathan is a 23 year old female who presents for problem visit vaginal itching ongoing HPI: Patient states that she did not get any resolve from 1 dose of Diflucan and a 7-day round of Monistat. She is continue to have vaginal itching and irritation. Patient does state that her blood sugars are now within normal range with the Trulicity injections. 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 History Comments: Sexual Activity: Not Currently; Male Contraception: None PAST MEDICAL HISTORY No date: ADHD (attention deficit hyperactivity disorder) No date: Fatty liver No date: GERD (gastroesophageal reflux disease) No date: Marfan's syndrome 06/25/2008: VIRAL WARTS NOS Comment: resolved PAST SURGICAL HISTORY 06/10/2022: DDI VIBRATION CONTROLLED TRANSIENT ELASTOGRAPHY (VCTE) Comment: Fibrosis stage F3-F4 and steatosis grade of S3 05/02/2015: EYE SURGERY HX Comment: detached retina 08/19/2018: EYE SURGERY HX Comment: right sided secondary lens implant 07/05/2022: LIVER BIOPSY No date: PAST SURGICAL HISTORY OF Comment: sherwin eyes No date: PAST SURGICAL HISTORY OF Comment: right leg broken-surgery FAMILY HISTORY Problem Relation Age of Onset - other (Marfan's) Mother - None Father - other (Marfan's) Brother - other (mood issues) Brother - Osteoporosis Maternal Grandmother - other (Marfan's) Maternal Grandfather - None Paternal Grandmother - Heart Paternal Grandfather pace maker - No Ocular Disease Other Social History Tobacco Use - Smoking status: Former Current packs/day: 0.00 Types: Cigarettes Quit date: 2021 Years since quittin.6 - Smokeless tobacco: Never - Tobacco comments: Pt smoked 3 cigarettes daily x 2 months, quit 2021 Pt vapes Vaping Use - Vaping status: current everyday user - Substances: Nicotine, Flavoring - Devices: Pre-filled or refillable cartridge Substance Use Topics - Alcohol use: Not Currently Comment: occasional - Drug use: Not Currently Types: Marijuana Current Outpatient Medications Medication Sig - doxycycline (VIBRA-TABS) 100 mg tablet Take 1 tablet by mouth two times a day for 7 days. - miconazole (MONISTAT 7) 2 % vaginal cream Use 1 Applicator vaginally daily at bedtime. (Patient not taking: Reported on 03/02/2024) - methylphenidate (RITALIN) 20 mg tablet Take 1 tablet by mouth as needed for up to 30 days. Take at approx. 3-4 pm. - amphetamine-dextroampheta mine XR (ADDERALL XR) 30 mg capsule Take 1 capsule by mouth every morning for 30 days. Patient should start on February 14, 2024. - Blood-Glucose Meter 1 Device as directed. For once daily testing - blood sugar diagnostic (BLOOD GLUCOSE TEST) test strip Test blood sugar(s) one times daily. Dx: Type 2 DM - Controlled E11.9 Insulin: No - Lancets Test blood sugar(s) one times daily. Dx: Type 2 DM - Controlled E11.9 Insulin: No - dulaglutide (TRULICITY) 0.75 mg/0.5 mL pen injector Inject 0.75 mg subcutaneously one time a week. - Norethindrone, Contraceptive, (SELMA) 0.35 mg tablet Take 1 tablet by mouth once daily. - omeprazole (PRILOSEC) 20 mg capsule Take 1 capsule by mouth once daily. On empty stomach at least 30 minutes before eating. - SUMAtriptan (IMITREX) 100 mg tablet Take 1 tablet (100 mg) by mouth as needed for migraine headache (see administration instructions). Take 1 by mouth at onset of migraine. May repeat after 2 hours as needed - ondansetron orally disintegrating (ZOFRAN ODT) 4 mg disintegrating tablet Take 1 tablet by mouth every 8 hours as needed for nausea/vomiting. - PARoxetine (PAXIL) 20 mg tablet Take 1 tablet by mouth once daily. - CPAP/BIPAP/OTHER Type .CPAPSettings into a note to see current settings/supplies/DME information. No current facility-administered medications for this visit. Allergies As of Date: 03/04/2024 (No Known Allergies) Fully Assessed 03/03/2024 REVIEW OF SYSTEMS Expanded ROS: N/A Allergies and current medication updated:Yes EXAM: LMP 10/21/2023 GENERAL: pleasant, female in no apparent distress HEENT: Normocephalic, atraumatic, mucus membranes moist, and no lesions CHEST: Normal inspiratory effort NEURO: alert and oriented x3,exam grossly non-focal EXTREMITIES: normal ASSESSMENT/PLAN: 1. Vaginal yeast infection - ICD9: 112.1, ICD10: B37.31 - FLUCONAZOLE 150 MG TABLET x 3 doses Call if no improvement Pat Ferrer (more content not included)... Normal [facility] CNOVon 03-02-2024 CNOV Office Visit (WSTR ) ----- KATIE FORDE ([id number]) 2000 F Date Time Provider Department 03/02/24 12:00 PM REBECA RUSSELL [facility] During your visit today, we recorded the following information about you: Temperature Pulse Respiration Blood pressure 98.3 degrees 106/minute 16/minute 124/80 Weight 141.9 kg Rebeca Russell APRN.ELECTRIC STOVE MECHANIC 03/02/2024 1:36 PM Signed This note was created using NoteWriter. Subjective Katie Forde is a 23 year old female. 23 year old female with DM, migraine, ADHD, and anxiety presents for illness. Acute onset 8 days ago +sore throat + cough +post nasal drainage +sinus pressure +nausea Denies body aches or fatigue Denies fever or chills. Denies emesis Denies diarrhea Vapes She is accompanied by family members for similar. The history is provided by the patient. No sales process manager was used. Nasal Congestion This is a new problem. The current episode started 1 to 4 weeks ago. The problem has been gradually worsening since onset. There has been no fever. Her pain is at a severity of 7/10. The pain is moderate. Associated symptoms include congestion, coughing, ear pain, headaches, sinus pressure, sneezing and a sore throat. Pertinent negatives include no chills, diaphoresis, hoarse voice, neck pain, shortness of breath or swollen glands. Past treatments include nothing. The treatment provided no relief. PAST MEDICAL HISTORY No date: ADHD (attention deficit hyperactivity disorder) No date: Fatty liver No date: GERD (gastroesophageal reflux disease) No date: Marfan's syndrome 06/25/2008: VIRAL WARTS NOS Comment: resolved PAST SURGICAL HISTORY 06/10/2022: DDI VIBRATION CONTROLLED TRANSIENT ELASTOGRAPHY (VCTE) Comment: Fibrosis stage F3-F4 and steatosis grade of S3 05/02/2015: EYE SURGERY HX Comment: detached retina 08/19/2018: EYE SURGERY HX Comment: right sided secondary lens implant 07/05/2022: LIVER BIOPSY No date: PAST SURGICAL HISTORY OF Comment: sherwin eyes No date: PAST SURGICAL HISTORY OF Comment: right leg broken-surgery ALLERGIES Patient has no known allergies. MEDICATIONS methylphenidate (RITALIN) 20 mg tablet Take 1 tablet by mouth as needed for up to 30 days. Take at approx. 3-4 pm. amphetamine-dextroampheta mine XR (ADDERALL XR) 30 mg capsule Take 1 capsule by mouth every morning for 30 days. Patient should start on February 14, 2024. Blood-Glucose Meter 1 Device as directed. For once daily testing blood sugar diagnostic (BLOOD GLUCOSE TEST) test strip Test blood sugar(s) one times daily. Dx: Type 2 DM - Controlled E11.9 Insulin: No Lancets Test blood sugar(s) one times daily. Dx: Type 2 DM - Controlled E11.9 Insulin: No dulaglutide (TRULICITY) 0.75 mg/0.5 mL pen injector Inject 0.75 mg subcutaneously one time a week. Norethindrone, Contraceptive, (SELMA) 0.35 mg tablet Take 1 tablet by mouth once daily. omeprazole (PRILOSEC) 20 mg capsule Take 1 capsule by mouth once daily. On empty stomach at least 30 minutes before eating. SUMAtriptan (IMITREX) 100 mg tablet Take 1 tablet (100 mg) by mouth as needed for migraine headache (see administration instructions). Take 1 by mouth at onset of migraine. May repeat after 2 hours as needed ondansetron orally disintegrating (ZOFRAN ODT) 4 mg disintegrating tablet Take 1 tablet by mouth every 8 hours as needed for nausea/vomiting. PARoxetine (PAXIL) 20 mg tablet Take 1 tablet by mouth once daily. CPAP/BIPAP/OTHER Type .CPAPSettings into a note to see current settings/supplies/DME information. doxycycline (VIBRA-TABS) 100 mg tablet Take 1 tablet by mouth two times a day for 7 days. miconazole (MONISTAT 7) 2 % vaginal cream Use 1 Applicator vaginally daily at bedtime. (Patient not taking: Reported on 03/02/2024) FAMILY HISTORY Problem Relation Age of Onset other (Marfan's) Mother None Father other (Marfan's) Brother other (mood issues) Brother Osteoporosis Maternal Grandmother other (Marfan's) Maternal Grandfather None Paternal Grandmother Heart Paternal Grandfather pace maker No Ocular Disease Other Social History Tobacco Use Smoking status: Former Current packs/day: 0.00 Types: Cigarettes Quit date: 2021 Years since quittin.6 Smokeless tobacco: Never Tobacco comments: Pt smoked 3 cigarettes daily x 2 months, quit 2021 Pt vapes Vaping Use Vaping status: current everyday user Substances: Nicotine, Flavoring Devices: Pre-filled or refillable cartridge Substance Use Topics Alcohol use: Not Currently Comment: occasional Drug use: Not Currently Types: Marijuana Review of Systems Constitutional: Positive for fatigue. Negative for chills and diaphoresis. HENT: Positive for congestion, ear pain, postnasal drip, rhinorrhea, sinus pressure, sinus pain, sneezing and sore throat. Negative for hoarse voice. Eyes: Negative for photophobia, p (more content not included)... Normal [facility] BACTERIAL VAGINOSIS NAATon 0 02-10-2024 Lactobacillus crispatus+gasseri+agustina senii + Gardnerella vaginalis + Atopobium vaginae rRNA EDMOND+probe Ql (Vag fld) Negative Normal Negative for bacterial vaginosis [facility] Comment on above: Order Comment: Speci men Type: BLOOD SPECIMEN Ordering Facility: [facility] Address: [address] [place] [address] Performed By: #### V ITB6 #### [facility] CLIA [id number] [address] [place] [address] YEIMY/TRICHOMONAS NAATon 0 02-10-2024 C. glabrata RNA EDMOND+probe Ql (Vag fld) Negative Normal Negative for Yeimy glabrata [facility] Comment on above: Order Comment: Speci men Type: BLOOD SPECIMEN Ordering Facility: [facility] Address: [address] [place] [address] Performed By: #### V ITB6 #### [facility] CLIA [id number] [address] [place] [address] Yeimy sp DNA EDMOND+probe Ql (Vag fld) Positive Abnormal Negative for Yeimy species [facility] Comment on above: Order Comment: Speci men Type: BLOOD SPECIMEN Ordering Facility: [facility] Address: [address] [place] [address] Performed By: #### V ITB6 #### [facility] [place] CLIA [id number] [address] [place] [address] T. vaginalis DNA EDMOND+probe Ql (Unsp spec) Negative Normal Negative for Trichomonas vaginalis by amplification [facility] Comment on above: Order Comment: Speci men Type: BLOOD SPECIMEN Ordering Facility: [facility] Address: [address] [place] [id number] Performed By: #### V ITB6 #### [facility] CLIA [id number] [address] [place] [address] CNOVon 02-10-2024 CNOV Office Visit (OBGYWM ) ----- JONATHANKATIE ([id number]) 2000 F Date Time Provider Department 02/10/24 3:00 PM PAT FERRER OBGYWM During your visit today, we recorded the following information about you: Blood pressure Weight 120/80 143.3 kg Pat Ferrer APRN.ELECTRIC STOVE MECHANIC 02/10/2024 3:09 PM 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 Katie Forde is a 23 year old female who presents for problem visit for a Yeast Infection. HPI: Patient is here for a yeast infection, she is having discharge. 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 History Comments: Sexual Activity: Not Currently; Male Contraception: None PAST MEDICAL HISTORY No date: ADHD (attention deficit hyperactivity disorder) No date: Fatty liver No date: GERD (gastroesophageal reflux disease) No date: Marfan's syndrome 06/25/2008: VIRAL WARTS NOS Comment: resolved PAST SURGICAL HISTORY 06/10/2022: DDI VIBRATION CONTROLLED TRANSIENT ELASTOGRAPHY (VCTE) Comment: Fibrosis stage F3-F4 and steatosis grade of S3 05/02/2015: EYE SURGERY HX Comment: detached retina 08/19/2018: EYE SURGERY HX Comment: right sided secondary lens implant 07/05/2022: LIVER BIOPSY No date: PAST SURGICAL HISTORY OF Comment: sherwin eyes No date: PAST SURGICAL HISTORY OF Comment: right leg broken-surgery FAMILY HISTORY Problem Relation Age of Onset other (Marfan's) Mother None Father other (Marfan's) Brother other (mood issues) Brother Osteoporosis Maternal Grandmother other (Marfan's) Maternal Grandfather None Paternal Grandmother Heart Paternal Grandfather pace maker No Ocular Disease Other Social History Tobacco Use Smoking status: Former Types: Cigarettes Quit date: 2021 Years since quittin.6 Smokeless tobacco: Never Tobacco comments: Pt smoked 3 cigarettes daily x 2 months, quit 2021 Pt vapes Vaping Use Vaping Use: current everyday user Substances: Nicotine, Flavoring Devices: Pre-filled or refillable cartridge Substance Use Topics Alcohol use: Not Currently Comment: occasional Drug use: Not Currently Types: Marijuana Current Outpatient Medications Medication Sig [START ON 02/14/2024] amphetamine-dextroampheta mine XR (ADDERALL XR) 30 mg capsule Take 1 capsule by mouth every morning for 30 days. Patient should start on February 14, 2024. Blood-Glucose Meter 1 Device as directed. For once daily testing blood sugar diagnostic (BLOOD GLUCOSE TEST) test strip Test blood sugar(s) one times daily. Dx: Type 2 DM - Controlled E11.9 Insulin: No Lancets Test blood sugar(s) one times daily. Dx: Type 2 DM - Controlled E11.9 Insulin: No dulaglutide (TRULICITY) 0.75 mg/0.5 mL pen injector Inject 0.75 mg subcutaneously one time a week. Norethindrone, Contraceptive, (SELMA) 0.35 mg tablet Take 1 tablet by mouth once daily. methylphenidate (RITALIN) 20 mg tablet Take 1 tablet by mouth as needed for up to 30 days. Take at approx. 3-4 pm. Do not start before January 12, 2024. omeprazole (PRILOSEC) 20 mg capsule Take 1 capsule by mouth once daily. On empty stomach at least 30 minutes before eating. SUMAtriptan (IMITREX) 100 mg tablet Take 1 tablet (100 mg) by mouth as needed for migraine headache (see administration instructions). Take 1 by mouth at onset of migraine. May repeat after 2 hours as needed ondansetron orally disintegrating (ZOFRAN ODT) 4 mg disintegrating tablet Take 1 tablet by mouth every 8 hours as needed for nausea/vomiting. PARoxetine (PAXIL) 20 mg tablet Take 1 tablet by mouth once daily. CPAP/BIPAP/OTHER Type .CPAPSettings into a note to see current settings/supplies/DME information. No current facility-administered medications for this visit. Allergies As of Date: 02/10/2024 (No Known Allergies) Fully Assessed 02/10/2024 REVIEW OF SYSTEMS Expanded ROS: N/A Allergies and current medication updated:Yes EXAM: BP 120/80 Wt 316 lb (143.3kg) LMP 10/21/2023 GENERAL: pleasant, female in no apparent distress HEENT: Normocephalic, atraumatic, mucus membranes moist, and no lesions CHEST: Normal inspiratory effort PELVIC: external genitalia normal, normal Bartholin's glands, urethra, So-Hi's glands, no vulvar lesions, no cervical lesions, good vaginal support, physiologic discharge present, normal appearing perineal body and perianal region BIMANUAL: deferred NEURO: alert and oriented x3,exam grossly non-focal EXTREMITIES: normal ASSESSMENT/PLAN: 1. Vaginal discharge - ICD9: 623.5, ICD10: N89.8 Will notify patient of test results. - BACTERIAL VAGINOSIS NAAT - YEIMY/TRICHOMONAS NAAT Pat Ferrer, [employer] Medical Decision Making: Problems: Low: Acute, (more content not included)... Normal [facility] CNOVon 02-02-2024 CNOV Office Visit (ORTHWS ) ----- KATIE FORDE ([id number]) 2000 F Date Time Provider Department 02/02/24 2:15 PM GERARDO CROWE During your visit today, we recorded the following information about you: Gerardo Crowe MD 03/03/2024 3:20 PM Signed Gerardo Crowe MD Department of Orthopaedics [facility] [address] [place] [address] Dept: [phone] Dept February 02, 2024 CHIEF COMPLAINT: New and Pain of the Right Hand HPI Patient here today for right hand pain. States that she punched a wooden headboard a while back and the knuckle became swollen. She was not treated at the time of the injury. X-ray completed on 12/17/2023. She is right hand dominant. Does not work outside the home. ASSESSMENT: M79.641 Right hand pain PLAN: her middle MCP is still painful, likely from the contusion from impact. I suspect that will get better with time and modalities. I recommended Voltaren for the area. FOLLOW UP INSTRUCTIONS: As needed Ms. Katie Forde was advised as to contrast therapies and/or to take analgesics/anti-inflammat ories as needed and all contraindications were reviewed. OBJECTIVE: Ms. Katie Forde is a pleasant 23 year old in no apparent distress. Gen:LMP 10/21/2023 nl development, obese, no deformities ENT: Normocephalic, normal hearing, moist mucosa CV: Pulses:Radial= 2+ and symmetric, capillary refill < 2 secs, no peripheral edema/varicosities Skin: no rash, bruising or lesions. Good turgor. Psych: cooperative and appropriate, alert and oriented x 3, good mood and affect. Musculoskeletal: Mild swelling of the joint, more than the others. TTP over the MCP joint. IMAGING: IMPRESSION: NORMAL APPEARANCE OF THE RIGHT HAND Fisher Purse Seine: PSCB Transcribe Date/Time: Dec 17 2023 10:37A Dictated by : LOIDA RECIO MD This examination was interpreted and the report reviewed and electronically signed by: LOIDA RECIO MD on Dec 17 2023 10:39AM EST Results-Findings * * *Final Report* * * DATE OF EXAM: Dec 17 2023 9:52AM WOX [id number] - XR HAND 3V PA/LAT/OBL RT / PROCEDURE REASON: Right hand pain * * * * Physician Interpretation * * * * Examination: XR HAND 3V PA/LAT/OBL RT History: Right hand pain Punched a headboard 07/25/2023. Ongoing pain. Third MCP joint swelling at the dusty e of incident. Technique: XR HAND 3V PA/LAT/OBL RT Comparison: None RESULT: No evidence of fracture or bony abnormality. Normal mineralization and alignment. Joint spaces are maintained. Supporting Subjective Information Below: Past Medical History: PAST MEDICAL HISTORY No date: ADHD (attention deficit hyperactivity disorder) No date: Fatty liver No date: GERD (gastroesophageal reflux disease) No date: Marfan's syndrome 06/25/2008: VIRAL WARTS NOS Comment: resolved Past Surgical History: PAST SURGICAL HISTORY 06/10/2022: DDI VIBRATION CONTROLLED TRANSIENT ELASTOGRAPHY (VCTE) Comment: Fibrosis stage F3-F4 and steatosis grade of S3 05/02/2015: EYE SURGERY HX Comment: detached retina 08/19/2018: EYE SURGERY HX Comment: right sided secondary lens implant 07/05/2022: LIVER BIOPSY No date: PAST SURGICAL HISTORY OF Comment: sherwin eyes No date: PAST SURGICAL HISTORY OF Comment: right leg broken-surgery Family History: FAMILY HISTORY Problem Relation Age of Onset other (Marfan's) Mother None Father other (Marfan's) Brother other (mood issues) Brother Osteoporosis Maternal Grandmother other (Marfan's) Maternal Grandfather None Paternal Grandmother Heart Paternal Grandfather pace maker No Ocular Disease Other Social History: Social History Tobacco Use Smoking status: Former Types: Cigarettes Quit date: 2021 Years since quittin.5 Smokeless tobacco: Never Tobacco comments: Pt smoked 3 cigarettes daily x 2 months, quit 2021 Pt vapes Vaping Use Vaping Use: current everyday user Substances: Nicotine, Flavoring Devices: Pre-filled or refillable cartridge Substance Use Topics Alcohol use: Not Currently Comment: occasional Drug use: Not Currently Types: Marijuana Medications: Current Outpatient Medications Medication Sig dulaglutide (TRULICITY) 0.75 mg/0.5 mL pen injector Inject 0.75 mg subcutaneously one time a week. Norethindrone, Contraceptive, (SELMA) 0.35 mg tablet Take 1 tablet by mouth once daily. amphetamine-dextroampheta mine XR (ADDERALL XR) 30 mg capsule Take 1 capsule by mouth once daily for 30 days. Do not start before January 12, 2024. methylphenidate (RITALIN) 20 mg tablet Take 1 tablet by mouth as needed for up to 30 days. Take at approx. 3-4 pm. Do not start before January 12, 2024. omeprazole (PRILOSEC) 20 mg capsule Take 1 capsule by mouth once daily. On empty stomach at least 30 minutes before eating. SUMAtriptan (IMITREX) 100 mg tablet Take 1 tablet (100 mg) b (more content not included)... Normal [facility] 17-Hydroxyprogesterone [Mass /Vol]on 01-29-2024 [facility] HYDROXYPROGESTERONE-17on 17-Hydroxyprogesteron e [Mass/Vol] 21.22 ng/dL NINF - 206.00 ng/dL [facility] Comment on above: INTERPRETIVE INFORMATION for 17-Hydroxyprogesterone in females: Follicular 15 to 70 ng/dL Luteal 35 to 290 ng/dL REFERENCE INTERVAL: 17-Hydroxyprogesterone Qnt, HPLC-MS/MS Access complete set of age- and/or gender-specific reference intervals for this test in the [employer] [facility] Laboratory Test Directory ([employer]). This test was developed and its performance characteristics determined by [facility]. It has not been cleared or approved by the US Food and Drug Administration. This test was performed in a CLIA certified laboratory and is intended for clinical purposes. Performed By: [facility] [address] [place] [id number] [employer] Dashboard Developer: Yared Curry MD, PhD CLIA Number: [id number] [facility] 01-27-2024 [facility] Office Visit (INTMWS ) ----- KATIE FORDE ([id number]) 2000 F Date Time Provider Department 01/27/24 2:00 PM SHER [place] INTMWS During your visit today, we recorded the following information about you: Pulse Respiration Blood pressure Weight 100/minute 20/minute 128/80 143.8 kg Sher Hollingsworth APRN.ELECTRIC STOVE MECHANIC 01/27/2024 3:06 PM Signed SUBJECTIVE Katie Forde is a 23 year old female here today for a check up on her medical problems. Chief Complaint Patient presents with: Results: discuss A1C results HPI Katie Forde is a 23 year old female. She is an established patient of Kate Silva MD. Here today for concerns of lab results that manager club checked. Recent ultrasound noted Adenomyosis. Labs checked hgba1c and came back elevated at 6.6%. No prior diabetes diagnosis however she has a family history of DM. She also has a diagnosis of fatty liver. Currently does not routinely exercise, not watching diet. Her medications were reviewed today and her list is now up to date. Medications Current Outpatient Medications Medication Sig Norethindrone, Contraceptive, (SELMA) 0.35 mg tablet Take 1 tablet by mouth once daily. amphetamine-dextroampheta mine XR (ADDERALL XR) 30 mg capsule Take 1 capsule by mouth once daily for 30 days. Do not start before January 12, 2024. methylphenidate (RITALIN) 20 mg tablet Take 1 tablet by mouth as needed for up to 30 days. Take at approx. 3-4 pm. Do not start before January 12, 2024. omeprazole (PRILOSEC) 20 mg capsule Take 1 capsule by mouth once daily. On empty stomach at least 30 minutes before eating. SUMAtriptan (IMITREX) 100 mg tablet Take 1 tablet (100 mg) by mouth as needed for migraine headache (see administration instructions). Take 1 by mouth at onset of migraine. May repeat after 2 hours as needed ondansetron orally disintegrating (ZOFRAN ODT) 4 mg disintegrating tablet Take 1 tablet by mouth every 8 hours as needed for nausea/vomiting. PARoxetine (PAXIL) 20 mg tablet Take 1 tablet by mouth once daily. Blood-Glucose Meter 1 Device as directed. For once daily testing blood sugar diagnostic (BLOOD GLUCOSE TEST) test strip Test blood sugar(s) one times daily. Dx: Type 2 DM - Controlled E11.9 Insulin: No Lancets Test blood sugar(s) one times daily. Dx: Type 2 DM - Controlled E11.9 Insulin: No dulaglutide (TRULICITY) 0.75 mg/0.5 mL pen injector Inject 0.75 mg subcutaneously one time a week. CPAP/BIPAP/OTHER Type .CPAPSettings into a note to see current settings/supplies/DME information. No current facility-administered medications for this visit. ALLERGIES No Known Allergies ACTIVE PROBLEM LIST Type 2 Diabetes Mellitus Without Complication, Without Long-Term Current Use of Insulin (Hcc) - 01/27/2024 Fatty Liver - 01/27/2024 Obesity, Class III, BMI >= 40 - 09/30/2022 Anxiety - 03/12/2022 Pain in Right Foot - 03/12/2022 Lab Test Positive for Detection of Covid-19 Virus - 07/04/2020 Oppositional Defiant Disorder - 02/03/2017 Migraine Without Status Migrainosus, Not Intractable - 04/22/2016 Depersonalization Disorder (Hcc) - 12/05/2015 Depression - 09/24/2013 Comment: followed by psychiatry Outbursts of Anger - 10/12/2012 Subluxation of Lens Comment: bilaterally Attention Deficit Hyperactivity Disorder (Adhd), Combined Type - 09/22/2008 Marfan's Syndrome - 03/05/2006 Social History Tobacco Use Smoking status: Former Types: Cigarettes Quit date: 2021 Years since quittin.5 Smokeless tobacco: Never Tobacco comments: Pt smoked 3 cigarettes daily x 2 months, quit 2021 Pt vapes Vaping Use Vaping Use: current everyday user Substances: Nicotine, Flavoring Devices: Pre-filled or refillable cartridge Substance Use Topics Alcohol use: Not Currently Comment: occasional Drug use: Not Currently Types: Marijuana Review of Systems Respiratory: Negative. Cardiovascular: Negative. OBJECTIVE BP 128/80 Pulse 100 Resp 20 Wt 317 lb (143.8kg) LMP 10/21/2023 Physical Exam Vitals and nursing note reviewed. Constitutional: General: She is awake. She is not in acute distress. Appearance: Normal appearance. She is well-developed and well-groomed. She is not ill-appearing, toxic-appearing or diaphoretic. HENT: Head: Normocephalic. Right Ear: External ear normal. Left Ear: External ear normal. Nose: Nose normal. Eyes: General: Vision grossly intact. Conjunctiva/sclera: Conjunctivae normal. Pupils: Pupils are equal, round, and reactive to light. Neck: Vascular: No JVD. Trachea: Trachea normal. Pulmonary: Effort: Pulmonary effort is normal. No accessory muscle usage, prolonged expiration or respiratory distress. Musculoskeletal: Cervical back: Neck supple. Skin: General: Skin is warm and dry. Capillary Refill: Capillary refill takes less than 2 seconds. Neurological: General: No focal deficit pres (more content not included)... [facility]OBGYWM[facility] ----- KATIE FORDE ([id number]) 2000 F Date Time Provider Department 01/26/24 PAT FERRER OBGYWM During your visit today, we recorded the following information about you: Pat Ferrer APRN.CNP 01/26/2024 10:32 AM Signed Spoke with pt regard her labs. A1c 6.6, instructed her to call her PCP for further follow up. D/C provera and ordered Selma Discussed risk of miscarriage due to diabetes and the importance of weight loss and control blood sugar for . Pat Ferrer APRN.CNP Allergies As of Date: 01/26/2024 (No Known Allergies) Date Reviewed: 12/22/2023 Reviewed by: Megha Salcedo MA - Fully Assessed Reason for Visit: Results [95] Order(s):Norethindrone, Contraceptive, (SELMA) 0.35 mg tabletTake 1 tablet by mouth once daily.Disp: 84 tabletRfl: 3 Prescriptions as of 01/26/2024 - Norethindrone, Contraceptive, (SELMA) 0.35 mg tablet Take 1 tablet by mouth once daily. - amphetamine-dextroampheta mine XR (ADDERALL XR) 30 mg capsule Take 1 capsule by mouth once daily for 30 days. Do not start before January 12, 2024. - methylphenidate (RITALIN) 20 mg tablet Take 1 tablet by mouth as needed for up to 30 days. Take at approx. 3-4 pm. Do not start before January 12, 2024. - omeprazole (PRILOSEC) 20 mg capsule Take 1 capsule by mouth once daily. On empty stomach at least 30 minutes before eating. - SUMAtriptan (IMITREX) 100 mg tablet Take 1 tablet (100 mg) by mouth as needed for migraine headache (see administration instructions). Take 1 by mouth at onset of migraine. May repeat after 2 hours as needed - ondansetron orally disintegrating (ZOFRAN ODT) 4 mg disintegrating tablet Take 1 tablet by mouth every 8 hours as needed for nausea/vomiting. - PARoxetine (PAXIL) 20 mg tablet Take 1 tablet by mouth once daily. - CPAP/BIPAP/OTHER Type .CPAPSettings into a note to see current settings/supplies/DME information. Problem List As Of Date 01/26/2024 Noted Resolved MARFAN'S SYNDROME [Q87.40] 03/05/2006 Viral warts, unspecified [B07.9] 06/25/2008 10/08/2011 Attention deficit hyperactivity disorder (ADHD)*09/22/2008 Subluxation of lens [H27.119] Outbursts of anger [R45.4] 10/12/2012 Delayed immunizations [Z28.9] 11/19/2012 01/23/2016 Depression [F32.A] 09/24/2013 Depersonalization disorder [F48.1] 12/05/2015 Migraine without status migrainosus, not intrac*04/22/2016 Oppositional defiant disorder [F91.3] 02/03/2017 BMI (body mass index), pediatric, 85% to less t*09/16/2017 12/15/2023 BMI (body mass index), pediatric, greater than *04/13/2019 12/15/2023 Lab test positive for detection of COVID-19 vir*07/04/2020 Anxiety [F41.9] 03/12/2022 Pain in right foot [M79.671] 03/12/2022 Obesity, Class III, BMI >= 40 [E66.01] 09/30/2022 Obesity, Class II, BMI 35-39.9 [E66.9] 01/20/2023 12/15/2023 Prescriptions ordered this encounter Disp Refills Start End NORETHINDRONE (CONTRACEPTIVE) 0.35 M* 84 t* 3 01/26/2024 12/27/2024 Route: ORAL Sig: Take 1 tablet by mouth once daily. Medications Discontinued During This Encounter Prescriptions - medroxyPROGESTERone (PROVERA) 10 mg tablet (Discontinued) Take 1 tablet by mouth once daily. Encounter Status:Closed by PAT FERRER on 01/26/24 Normal [facility] DHEA-S [facility] 01-24-2024 DHEA-S [Mass/Vol] 139.2 ug/dL 98.8 - 340 .0 ug/dL [facility] Comment on above: Reference ranges are age and gender specific. For additional information, reference range tables can be found in the laboratory test directory. The normal values are based on the following source: Dehydroepiandrosterone sulfate (DHEA S) [package insert V 17.0 British]. [facility], [place], [place]: January 2013. Interpretation and review of laboratory results Normal [facility] ESTRADIOL-17B [facility] 01-24-20 E2 [Mass/Vol] 126 pg/mL [facility] Comment on above: This test is not anu table for patients receiving treatment with the drug Fulvestrant (Faslodex). The drug causes an interference leading to falsely elevated estradiol results. Menstrual cycle Estradiol reference ranges: Follicular : < 234 pg/mL Ovulation : 41 to 398 pg/mL Luteal : < 342 pg/mL Estradiol reference ranges vary by gestational period: First trimester : 154 to 3243 pg/mL Second trimester : 1561 to 85596 pg/mL Third trimester : 8285 to >74098 pg/mL Post-menopausal Estradiol reference range: < 41 pg/mL Reference: 1. Estradiol - E2 (Estradiol III) [package insert V 3.0 British]. [facility], [place], [place], November 2015. FOLLICLE STIMULATING HORMONE on 01-24-2024 Follitropin Qn 2.8 m[IU]/mL See comment mIU/mL [facility] Comment on above: Reference range: Follicular: 3.5-12.5 mIU/mL Ovulation: 4.7-21.5 mIU/mL Luteal: 1.7-7.7 mIU/mL Postmenopausal: 25.8-134.8 mIU/mL HbA1c (Bld)on 01-24-2024 Average glucose Estimated from glycated hemoglobin (Bld) [Mass/Vol] 143 mg/dL [facility] Comment on above: eAG: (Estimated aver age glucose) is a calculated value from HgbA1c and is territory service representative of the average blood glucose level in the last 2-3 month period. HbA1c (Bld) [Mass fraction] 6.6 % High 4.3 - 5.6 % [facility] Comment on above: [place]ag[place] Diabetes As sociation guidelines indicate that patients with HgbA1c in the range 5.7-6.4% are at increased risk for development of diabetes, and intervention by lifestyle modification may be beneficial. HgbA1c greater or equal to 6.5% is considered diagnostic of diabetes. Interpretation and review of laboratory results Abnormal [facility] [facility] LUTEINIZING HORMONEon 2023 Lutropin Qn 5.5 m[IU]/mL See comment mIU/mL [facility] Comment on above: Reference range: Follicular: 2.4-12.6 mIU/mL Midcycle: 14.0-95.6 mIU/mL Luteal: 1.0-11.4 mIU/mL Post Leeanne: 7.7-58.5 mIU/mL No Panel Informationon 01-23 [facility] Interpretation and review of laboratory results Normal [facility] PROLACTINon 01-24-2024 Prolactin [Mass/Vol] 23.4 ng/mL 4.5 - 2 6.8 ng/mL [facility] Comment on above: Prolactin test is pe rformed using the [employer] Electrochemiluminescence Immunoassay method. Results obtained with different methods or kits cannot be used interchangeably. THYROID STIMULATING HORMONEo n 01-24-2024 TSH Qn 0.969 m[IU]/L [facility] Comment on above: If the patient is pr egnant, TSH reference range varies by gestational period: First Trimester (weeks 9-12): 0.180-2.990 mIU/L Second Trimester: 0.110-3.980 mIU/L Third Trimester: 0.480-4.710 mIU/L Rolando Cheatham et al. A Practical Approach for the Verifications and Determination of Site- and Trimester-Specific Reference Intervals for Thyroid Function tests in . Thyroid, 2019:29:3:412-420. Wiliam Escobar, et al. 2017 Guidelines of the [place] Thyroid Association for the Diagnosis and Management of Thyroid Disease during and the . Thyroid, 2017:27:3:315-389. DHEA-S BLDon 01-23-2024 DHEA-S [Mass/Vol] 139.2 ug/dL Normal 98.8-340.0 [facility] Comment on above: Order Comment: Speci men Type: BLOOD SPECIMEN Ordering Facility: [facility] Address: [address] [place] [address] Result Comment: Refe rence ranges are age and gender specific. For additional information, reference range tables can be found in the laboratory test directory. The normal values are based on the following source: Dehydroepiandrosterone sulfate (DHEA S) [package insert V 17.0 British]. [employer], [place], [place]: January 2013. Performed By: #### Scott DESAI, 2243-4, 89338-6, 74362-1 #### [facility] CLIA [id number] [address] [place] [address] [place] Estradiol SerPl-mCncon 01-22 E2 [Mass/Vol] 126 pg/mL Normal [facility] Comment on above: Order Comment: Speci men Type: BLOOD SPECIMEN Ordering Facility: [facility] Address: [address] [place] [address] Result Comment: This test is not suitable for patients receiving treatment with the drug Fulvestrant (Faslodex). The drug causes an interference leading to falsely elevated estradiol results. Menstrual cycle Estradiol reference ranges: Follicular : < 234 pg/mL Ovulation : 41 to 398 pg/mL Luteal : < 342 pg/mL Estradiol reference ranges vary by gestational period: First trimester : 154 to 3243 pg/mL Second trimester : 1561 to 48160 pg/mL Third trimester : 8285 to >36884 pg/mL Post-menopausal Estradiol reference range: < 41 pg/mL Reference: 1. Estradiol - E2 (Estradiol III) [package insert V 3.0 British]. [employer] [facility] [facility], [place], [place], November 2015. Performed By: #### Scott DESAI, 2243-4, 77471-4, 08320-1 #### [facility] CLIA [id number] [address] [place] [address] [place] FSH SerPl-aCncon 01-23-2024 Follitropin Qn 2.8 m[IU]/mL Normal See comment [facility] Comment on above: Order Comment: Speci men Type: BLOOD SPECIMEN Ordering Facility: [facility] Address: [address] [place] [address] Result Comment: Refe rence range: Follicular: 3.5-12.5 mIU/mL Ovulation: 4.7-21.5 mIU/mL Luteal: 1.7-7.7 mIU/mL Postmenopausal: 25.8-134.8 mIU/mL Performed By: #### D GISELLE, 2243-4, 34524-1, 51205-0 #### [facility] CLIA [id number] [address] [place] [address] [place] HYDROXYPROGESTERONE-17on 17-HYDROXYPROGESTERON E QUANTITATIVE BY HPLC-MS/MS, SERUM OR PLASMA 21.22 ng/dL Normal <=206.00 [facility] Comment on above: Order Comment: Speci men Type: BLOOD SPECIMEN Ordering Facility: [facility] Address: [address] [place] [address] Result Comment: INTERPRETIVE INFORMATION for 17-Hydroxyprogesterone in females: Follicular 15 to 70 ng/dL Luteal 35 to 290 ng/dL REFERENCE INTERVAL: 17-Hydroxyprogesterone Qnt, HPLC-MS/MS Access complete set of age- and/or gender-specific reference intervals for this test in the [employer] Laboratory Test Directory ([employer]). This test was developed and its performance characteristics determined by [facility]. It has not been cleared or approved by the US Food and Drug Administration. This test was performed in a CLIA certified laboratory and is intended for clinical purposes. Performed By: [facility] [address] [place], [place] [id number] [employer] Dash[employer] Developer: Yared Curry MD, PhD CLIA Number: [id number] Performed By: #### V ITB6 #### [facility] CLIA [id number] [address] [place], [place] [id number] HbA1c (Bld)on 01-23-2024 Average glucose Estimated from glycated hemoglobin (Bld) [Mass/Vol] 143 mg/dL Normal [facility] Comment on above: Order Comment: Lore buitrago Type: BLOOD SPECIMEN Ordering Facility: [facility] Address: [address] [place] [address] Result Comment: eAG: (Estimated average glucose) is a calculated value from HgbA1c and is territory service representative of the average blood glucose level in the last 2-3 month period. Performed By: #### 3 016-3, 2842-3 #### [facility] CLIA [id number] [address] [place] [address] [place] HbA1c (Bld) [Mass fraction] 6.6 % High 4.3-5.6 [facility] Comment on above: Order Comment: Lore buitrago Type: BLOOD SPECIMEN Ordering Facility: [facility] Address: [address] [place] [address] Result Comment: Amer [place] Diabetes Association guidelines indicate that patients with HgbA1c in the range 5.7-6.4% are at increased risk for development of diabetes, and intervention by lifestyle modification may be beneficial. HgbA1c greater or equal to 6.5% is considered diagnostic of diabetes. Performed By: #### 3 016-3, 2842-3 #### [facility] CLIA [id number] [address] [place] [address] [place] LH SerPl-aCncon 01-23-2024 Lutropin Qn 5.5 m[IU]/mL Normal See comment [facility] Comment on above: Order Comment: Speci minna Type: BLOOD SPECIMENOrdering Facility: [facility] Address: [address] [place] [address] Result Comment: Refe rence range: Follicular: 2.4-12.6 mIU/mL Midcycle: 14.0-95.6 mIU/mL Luteal: 1.0-11.4 mIU/mL Post Leeanne: 7.7-58.5 mIU/mL Performed By: #### D GISELLE, 2243-4, 19816-1, 56254-4 ####[facility] [id number] [place] [address] [place] Prolactin SerPl-mCncon 01-22 Prolactin [Mass/Vol] 23.4 ng/mL Normal 4.5-26.8 [facility] Comment on above: Order Comment: Speci men Type: BLOOD SPECIMEN Ordering Facility: [facility] Address: [address] [place] [address] Result Comment: Prol actin test is performed using the [employer] Electrochemiluminescence Immunoassay method. Results obtained with different methods or kits cannot be used interchangeably. Performed By: #### 3 016-3, 2842-3 #### [facility] CLIA [id number] [address] [place] [address] [place] TESTOSTERONE, FREE AND TOTAL on 01-23-2024 TESTOSTERONE, FREE, S 0.53 ng/dL Normal <0.13-1.06 [facility] Comment on above: Order Comment: Speci men Type: BLOOD SPECIMEN Ordering Facility: [facility] Address: [address] [place] [address] Result Comment: ADDITIONAL INFORMATION This test was developed and its performance characteristics determined by [facility] in a manner consistent with CLIA requirements. This test has not been cleared or approved by the U.S. Food and Drug Administration. Performed By: #### 3 016-3, 2842-3 #### [facility] CLIA [id number] [address] [place] [address] [place] TESTOSTERONE, TOTAL, S 18 ng/dL Normal 8-60 [facility] Comment on above: Order Comment: Speci men Type: BLOOD SPECIMEN Ordering Facility: [facility] Address: [address] [place] [address] Result Comment: ADDITIONAL INFORMATION Testing performed by Liquid Chromatography-Tandem Mass Spectrometry (LC-MS/MS). This test was developed and its performance characteristics determined by [facility] in a manner consistent with CLIA requirements. This test has not been cleared or approved by the U.S. Food and Drug Administration. Test Performed by: [facility] [address] [place] [address] Clerical Support: Gracia Blair Ph.D.; CLIA# [id number] Performed By: #### 3 016-3, 2842-3 #### [facility] CLIA [id number] [address] [place] [address] [place] TSH SerPl-aCncon 01-23-2024 TSH Qn 0.969 m[IU]/L Normal 0.270-4.200 [facility] Comment on above: Order Comment: Speci men Type: BLOOD SPECIMEN Ordering Facility: [facility] Address: [address] [place] [address] Result Comment: If t he patient is , TSH reference range varies by gestational period: First Trimester (weeks 9-12): 0.180-2.990 mIU/L Second Trimester: 0.110-3.980 mIU/L Third Trimester: 0.480-4.710 mIU/L Rolando Cheatham et al. A Practical Approach for the Verifications and Determination of Site- and Trimester-Specific Reference Intervals for Thyroid Function tests in . Thyroid, 2019:29:3:412-420. Wiliam Escobar, et al. 2017 Guidelines of the [place] Thyroid Association for the Diagnosis and Management of Thyroid Disease during and the . Thyroid, 2017:27:3:315-389. Performed By: #### 3 016-3, 2842-3 #### [facility] CLIA [id number] [address] [place] [address] [place] US Pelvison 01-23-2024 [facility] Radiology Study observation (narrative) [facility] CNOVon 12-22-2023 CNOV Office Visit (WSTR ) ----- KATIE FORDE ([id number]) 2000 F Date Time Provider Department 12/22/23 4:30 PM LARRY JOSEPH [facility] During your visit today, we recorded the following information about you: Temperature Pulse Respiration Blood pressure 97.4 degrees 116/minute 20/minute 124/72 Weight 145.4 kg Larry Joseph, S[employer]TER.ELECTRIC STOVE MECHANIC 12/22/2023 5:37 PM Signed Subjective Pain (foot) Pertinent negatives include no fever or itching. Katie Forde is a 22 year old female who presents with left foot injury. She was walking across her pool deck and slid and fell, injuring her left foot. She has pain on the top of her foot. This happened one hour ago. She took ibuprofen. She tried to use ice but it made it hurt more. She denies ankle pain or injury. Review of Systems Constitutional: Negative for chills and fever. Musculoskeletal: Positive for falls and joint pain. Skin: Negative for itching and rash. BP 124/72 Pulse 116 Temp 36.3 ?C (97.4 ?F) Resp 20 Wt (!) 145.4 kg (320 lb 8.8 oz) LMP 10/21/2023 (Exact Date) SpO2 97% BMI 43.47 kg/m? PAST MEDICAL HISTORY Diagnosis Date ADHD (attention [...] known allergies. MEDICATIONS methylphenidate (RITALIN) 20 mg tablet Take 1 tablet by mouth as needed for up to 30 days. Take at approx. 3-4 pm. SUMAtriptan (IMITREX) 100 mg tablet Take 1 tablet (100 mg) by mouth as needed for migraine headache (see administration instructions). Take 1 by mouth at onset of migraine. May repeat after 2 hours as needed amphetamine-dextroampheta mine XR (ADDERALL XR) 30 mg capsule Take 1 capsule by mouth once daily for 14 days. ondansetron orally disintegrating (ZOFRAN ODT) 4 mg disintegrating tablet Take 1 tablet by mouth every 8 hours as needed for nausea/vomiting. ciprofloxacin-dexAMETHaso ne (CIPRODEX) 0.3-0.1 % otic suspension Use 4 Drops in the right ear two times a day for 7 days. PARoxetine (PAXIL) 20 mg tablet Take 1 tablet by mouth once daily. medroxyPROGESTERone (PROVERA) 10 mg tablet Take 1 tablet by mouth once daily. CPAP/BIPAP/OTHER Type .CPAPSettings into a note to see current settings/supplies/DME information. FAMILY HISTORY Problem Relation Age of Onset [...] cigarettes daily x 2 months, quit 2021 Pt vapes Vaping Use Vaping Use: current everyday user Substances: Nicotine, Flavoring Devices: Pre-filled or refillable cartridge Substance Use Topics Alcohol use: Not Currently Comment: occasional Drug use: Not Currently Types: Marijuana Objective Physical Exam Vitals and nursing note reviewed. Constitutional: Appearance: Normal appearance. Musculoskeletal: General: Signs of injury present. No swelling or deformity. Left foot: Normal range of motion and normal capillary refill. Tenderness present. No swelling, deformity or crepitus. Normal pulse. Skin: General: Skin is warm and dry. Findings: No bruising, erythema or rash. Neurological: Mental Status: She is alert. ASSESSMENT/PLAN: 1. Foot injury, left, initial encounter - ICD9: 959.7, ICD10: S99.922A - XR FOOT GENERAL 3V AP/LAT/OBL LEFT RESULT: No acute fracture or dislocation. Joint spaces are maintained. IMPRESSION: No acute osseous abnormality. Fisher Purse Seine: SILVIANO Transcribe Date/Time: Dec 22 2023 4:56P Dictated by : STEPHANI VEGA MD - TONE wrap applied to left foot - RICE therapy as directed. - tylenol and/or ibuprofen as directed. - Follow-up with your PCP in 3-5 days if symptoms have not improved or sooner if symptoms worsen - Discussed red flags and need for immediate medical evaluation if any occur. - Discussed supportive care treatment with rest and analgesia. - Discussed expected course of illness JAMI Howell Kathy, APRN.CNP 12/22/2023 5:36 PM Signed ASSESSMENT/PLAN: 1. Foot injury, left, initial encounter - ICD9: 959.7, (more content not included)... Normal [facility] XR FOOT 3V AP/LAT/OBL LTon 0 12-22-2023 XR FOOT 3V AP/LAT/OBL LT * * *Final Report* * * DATE OF EXAM: Dec 22 2023 4:50PM WOX [id number] - XR FOOT 3V AP/LAT/OBL LT / PROCEDURE REASON: Foot injury, left, initial encounter * * * * Physician Interpretation * * * * EXAMINATION: XR FOOT 3V AP/LAT/OBL LT CLINICAL HISTORY: Left foot pain Technique: XR FOOT 3V AP/LAT/OBL LT -- LEFT with 3 views on 3 images Comparison: None RESULT: No acute fracture or dislocation. Joint spaces are maintained. IMPRESSION: No acute osseous abnormality Fisher Purse Seine[facility] Transcribe Date/Time: Dec 22 2023 4:56P Dictated by : STEPHANI VEGA MD This examination was interpreted and the report reviewed and electronically signed by: STEPHANI VEGA MD on Dec 22 2023 4:58PM EST [id number] Normal [facility] XR Foot - left AP and Latera l and obliqueon 12-22-2023 IMPRESSION: No acute osseous abnormality [employer] Seine: SILVIANO Transcribe Date/Time: Dec 22 2023 4:56P Dictated by : STEPHANI VEGA MD This examination was interpreted and the report reviewed and electronically signed by: STEPHANI VEGA MD on Dec 22 2023 4:58PM [facility] DIVISION OF RADIOLOGY * * *Final Report* * * DATE OF EXAM: Dec 22 2023 4:50PM WOX [id number] - XR FOOT 3V AP/LAT/OBL LT / PROCEDURE REASON: Foot injury, left, initial encounter * * * * Physician Interpretation * * * * EXAMINATION: XR FOOT 3V AP/LAT/OBL LT CLINICAL HISTORY: Left foot pain Technique: XR FOOT 3V AP/LAT/OBL LT -- LEFT with 3 views on 3 images Comparison: None RESULT: No acute fracture or dislocation. Joint spaces are maintained. DIVISION OF RADIOLOGY Provider, [facility] Darcie [facility] - 12/22/2023 * * *Final Report* * * DATE OF EXAM: Dec 22 2023 4:50PM WOX 5336 - XR FOOT 3V AP/LAT/OBL LT / PROCEDURE REASON: Foot injury, left, initial encounter * * * * Physician Interpretation * * * * EXAMINATION: XR FOOT 3V AP/LAT/OBL LT CLINICAL HISTORY: Left foot pain Technique: XR FOOT 3V AP/LAT/OBL LT -- LEFT with 3 views on 3 images Comparison: None RESULT: No acute fracture or dislocation. Joint spaces are maintained. IMPRESSION IMPRESSION: No acute osseous abnormality Fisher Purse Seine: SILVIANO Transcribe Date/Time: Dec 22 2023 4:56P Dictated by : STEPHANI VEGA MD This examination was interpreted and the report reviewed and electronically signed by: STEPHANI VEGA MD on Dec 22 2023 4:58PM [facility] Radiology Study observation (narrative) [facility] XR Foot - left AP and Latera l and obliqueOrdered By: Ccf Provider on 12-22-2023 [facility] CNOVon 12-17-2023 CNOV Office Visit ([facility] ) ----- KATIE FORDE ([id number]) 2000 F Date Time Provider Department 12/17/23 9:30 AM DUSTY GARCÍA [facility] During your visit today, we recorded the following information about you: Temperature Pulse Respiration Blood pressure 97.9 degrees 107/minute 18/minute 122/78 Weight 144.4 kg Dusty García APRN.ELECTRIC STOVE MECHANIC 12/17/2023 10:48 AM Signed This note was created using [employer]. Subjective Katie Forde is a 22 year old female. HPI Jul 25 pt punched a headboard of a bed. At that time her third mcp joint became very swollen and painful. Xray at that time was negative. Pt has had ongoing pain ever since. She denies any subsequent injuries. She presents today requesting a repeat xray. Review of Systems Musculoskeletal: Positive for arthralgias. Objective BP 122/78 Pulse 107 Temp 36.6 ?C (97.9 ?F) (Tympanic) Resp 18 Wt (!) 144.4 kg (318 lb 6.4 oz) LMP 10/21/2023 (Exact Date) SpO2 98% BMI 43.18 kg/m? Physical Exam Vitals and nursing note reviewed. Constitutional: General: She is not in acute distress. Appearance: Normal appearance. She is not ill-appearing. HENT: Head: Normocephalic. Mouth/Throat: Mouth: Mucous membranes are moist. Eyes: Conjunctiva/sclera: Conjunctivae normal. Cardiovascular: Rate and Rhythm: Regular rhythm. Tachycardia present. Pulmonary: Effort: Pulmonary effort is normal. Musculoskeletal: General: Normal range of motion. Cervical back: Normal range of motion. Comments: Diffuse tenderness over the dorsal aspect of the right hand and to the ulnar aspect of the right wrist with no obvious swelling or deformities noted. There is no ecchymosis noted. Skin: General: Skin is warm and dry. Neurological: General: No focal deficit present. Mental Status: She is alert. Psychiatric: Mood and Affect: Mood normal. Behavior: Behavior normal. Assessment and Plan ASSESSMENT/PLAN: 1. Right hand pain - ICD9: 729.5, ICD10: M79.641 X-ray of the hand is reviewed by myself shows no signs of fracture or dislocation. I discussed with patient as she has had this ongoing pain for the last 6 months I would recommend follow-up with orthopedics to which she was agreeable. Patient will continue use [id number] pain medication as needed. - XR HAND GENERAL 3V PA/LAT/OBL RIGHT - CONSULT PANEL TO ORTHOPAEDICS Dusty García APRN.CNP Allergies As of Date: 12/17/2023 (No Known Allergies) Date Reviewed: 12/17/2023 Reviewed by: Dusty García APRN.ELECTRIC STOVE MECHANIC - Fully Assessed Reason for Visit: right hand and wrist pain [Other] Cmt: Old injury 6 months ago-would like it rechecked Primary Visit Diagnosis:Right hand pain [M79.641] Order(s):XR HAND GENERAL 3V PA/LAT/OBL RIGHT [8316516] Order #: [id number] FUTURE CONSULT PANEL TO ORTHOPAEDICS [809662] Order #: [id number]: 1 FUTURE Prescriptions as of 12/17/2023 - methylphenidate (RITALIN) 20 mg tablet Take 1 tablet by mouth as needed for up to 30 days. Take at approx. 3-4 pm. - SUMAtriptan (IMITREX) 100 mg tablet Take 1 tablet (100 mg) by mouth as needed for migraine headache (see administration instructions). Take 1 by mouth at onset of migraine. May repeat after 2 hours as needed - amphetamine-dextroampheta mine XR (ADDERALL XR) 30 mg capsule Take 1 capsule by mouth once daily for 14 days. - ondansetron orally disintegrating (ZOFRAN ODT) 4 mg disintegrating tablet Take 1 tablet by mouth every 8 hours as needed for nausea/vomiting. - ciprofloxacin-dexAMETHaso ne (CIPRODEX) 0.3-0.1 % otic suspension Use 4 Drops in the right ear two times a day for 7 days. - PARoxetine (PAXIL) 20 mg tablet Take 1 tablet by mouth once daily. - medroxyPROGESTERone (PROVERA) 10 mg tablet Take 1 tablet by mouth once daily. - CPAP/BIPAP/OTHER Type .CPAPSettings into a note to see current settings/supplies/DME information. Problem List As Of Date 12/17/2023 Noted Resolved MARFAN'S SYNDROME [Q87.40] 03/05/2006 Viral warts, unspecified [B07.9] 06/25/2008 10/08/2011 Attention deficit hyperactivity disorder (ADHD)*09/22/2008 Subluxation of lens [H27.119] Outbursts of anger [R45.4] 10/12/2012 Delayed immunizations [Z28.9] 11/19/2012 01/23/2016 Depression [F32.A] 09/24/2013 Depersonalization disorder [F48.1] 12/05/2015 Migraine without status migrainosus, not intrac*04/22/2016 Oppositional defiant disorder [F91.3] 02/03/2017 BMI (body mass index), pediatric, 85% to less t*09/16/2017 12/15/2023 BMI (body mass index), pediatric, greater than *04/13/2019 12/15/2023 Lab test positive for detection of COVID-19 vir*07/04/2020 Anxiety [F41.9] 03/12/2022 Pain in right foot [M79.671] 03/12/2022 Obesity, Class III, BMI >= 40 [E66.01] 09/30/2022 Obesity, Class II, BMI 35-39.9 [E66.9] 01/20/2023 12/15/2023 Encounter Status:Closed by DUSTY GARCÍA on 12/17/23 Normal [facility] XR HAND 3V PA/LAT/OBL RTon 0 12-17-2023 XR HAND 3V PA/LAT/OBL RT * * *Final Report* * * DATE OF EXAM: Dec 17 2023 9:52AM WOX [id number] - XR HAND 3V PA/LAT/OBL RT / PROCEDURE REASON: Right hand pain * * * * Physician Interpretation * * * * Examination: XR HAND 3V PA/LAT/OBL RT History: Right hand pain Punched a headboard 07/25/2023. Ongoing pain. Third MCP joint swelling at the dusty e of incident. Technique: XR HAND 3V PA/LAT/OBL RT Comparison: None RESULT: No evidence of fracture or bony abnormality. Normal mineralization and alignment. Joint spaces are maintained. IMPRESSION: NORMAL APPEARANCE OF THE RIGHT HAND Fisher Purse Seine: PSCB Transcribe Date/Time: Dec 17 2023 10:37A Dictated by : LOIDA RECIO MD This examination was interpreted and the report reviewed and electronically signed by: LOIDA RECIO MD on Dec 17 2023 10:39AM EST [id number] Normal [facility] XR Hand - right PA and Later al and Obliqueon 12-17-2023 IMPRESSION: NORMAL APPEARANCE OF THE RIGHT HAND Fisher Purse Seine: SILVIANO Transcribe Date/Time: Dec 17 2023 10:37A Dictated by : LOIDA RECIO MD This examination was interpreted and the report reviewed and electronically signed by: LOIDA RECIO MD on Dec 17 2023 10:39AM EST DIVISION OF RADIOLOGY * * *Final Report* * * DATE OF EXAM: Dec 17 2023 9:52AM WOX [id number] - XR HAND 3V PA/LAT/OBL RT / PROCEDURE REASON: Right hand pain * * * * Physician Interpretation * * * * Examination: XR HAND 3V PA/LAT/OBL RT History: Right hand pain Punched a headboard 07/25/2023. Ongoing pain. Third MCP joint swelling at the dusty e of incident. Technique: XR HAND 3V PA/LAT/OBL RT Comparison: None RESULT: No evidence of fracture or bony abnormality. Normal mineralization and alignment. Joint spaces are maintained. DIVISION OF RADIOLOGY Provider, [facility] - 12/17/2023 * * *Final Report* * * DATE OF EXAM: Dec 17 2023 9:52AM WOX 5346 - XR HAND 3V PA/LAT/OBL RT / PROCEDURE REASON: Right hand pain * * * * Physician Interpretation * * * * Examination: XR HAND 3V PA/LAT/OBL RT History: Right hand pain Punched a headboard 07/25/2023. Ongoing pain. Third MCP joint swelling at the dusty e of incident. Technique: XR HAND 3V PA/LAT/OBL RT Comparison: None RESULT: No evidence of fracture or bony abnormality. Normal mineralization and alignment. Joint spaces are maintained. IMPRESSION IMPRESSION: NORMAL APPEARANCE OF THE RIGHT HAND Fisher Purse Seine: SILVIANO Transcribe Date/Time: Dec 17 2023 10:37A Dictated by : LOIDA RECIO MD This examination was interpreted and the report reviewed and electronically signed by: LOIDA RECIO MD on Dec 17 2023 10:39AM EST [facility] Radiology Study observation (narrative) [facility] XR Hand - right PA and Later al and ObliqueOrdered By: [facility] Provider on 12-17-2023 [facility] CNOVon 12-15-2023 CNOV Office Visit (INTMWS ) ----- KATIE FORDE ([id number]) 2000 F Date Time Provider Department 12/15/23 1:00 PM [facility]ER [place] INTMWS During your visit today, we recorded the following information about you: Pulse Respiration Blood pressure Weight 102/minute 16/minute 128/76 142.9 kg Sher Hollingsworth APRN.ELECTRIC STOVE MECHANIC 12/15/2023 1:43 PM Signed SUBJECTIVE Katie Forde is a 22 year old female here today for a check up on her medical problems. Chief Complaint Patient presents with: F/U 3 Month: Migraine/ADHD HPI Katie Forde is a 22 year old female. She is an established patient of Kate Silva MD. Accompanied by mom, here today for a routine 3 month follow up. She did have an episode of dizziness, some right ear pain. Questioning an ear infection. This was worse with side to side head movements. Migraines doing okay. Topamax not helping, not taking this. Imitrex helps but could be more helpful. ADHD is stable, getting tasks competed. Mom agrees. Her medications were reviewed today and her list is now up to date. Medications Current Outpatient Medications Medication Sig methylphenidate (RITALIN) 20 mg tablet Take 1 tablet by mouth as needed for up to 30 days. Take at approx. 3-4 pm. Do not start before December 14, 2023. PARoxetine (PAXIL) 20 mg tablet Take 1 tablet by mouth once daily. medroxyPROGESTERone (PROVERA) 10 mg tablet Take 1 tablet by mouth once daily. CPAP/BIPAP/OTHER Type .CPAPSettings into a note to see current settings/supplies/DME information. SUMAtriptan (IMITREX) 100 mg tablet Take 1 tablet (100 mg) by mouth as needed for migraine headache (see administration instructions). Take 1 by mouth at onset of migraine. May repeat after 2 hours as needed amphetamine-dextroampheta mine XR (ADDERALL XR) 30 mg capsule Take 1 capsule by mouth once daily for 14 days. ondansetron orally disintegrating (ZOFRAN ODT) 4 mg disintegrating tablet Take 1 tablet by mouth every 8 hours as needed for nausea/vomiting. ciprofloxacin-dexAMETHaso ne (CIPRODEX) 0.3-0.1 % otic suspension Use 4 Drops in the right ear two times a day for 7 days. No current facility-administered medications for this visit. ALLERGIES No Known Allergies ACTIVE PROBLEM LIST Obesity, Class III, BMI >= 40 - 09/30/2022 Anxiety - 03/12/2022 Pain in Right Foot - 03/12/2022 Lab Test Positive for Detection of Covid-19 Virus - 07/04/2020 Oppositional Defiant Disorder - 02/03/2017 Migraine Without Status Migrainosus, Not Intractable - 04/22/2016 Depersonalization Disorder (Hcc) - 12/05/2015 Depression - 09/24/2013 Comment: followed by psychiatry Outbursts of Anger - 10/12/2012 Subluxation of Lens Comment: bilaterally Attention Deficit Hyperactivity Disorder (Adhd), Combined Type - 09/22/2008 Marfan's Syndrome - 03/05/2006 Social History Tobacco Use Smoking status: Former Types: Cigarettes Quit date: 2021 Years since quittin.4 Smokeless tobacco: Never Tobacco comments: Pt smoked 3 cigarettes daily x 2 months, quit 2021 Pt vapes Vaping Use Vaping Use: current everyday user Substances: Nicotine, Flavoring Devices: Pre-filled or refillable cartridge Substance Use Topics Alcohol use: Not Currently Comment: occasional Drug use: Not Currently Types: Marijuana Review of Systems HENT: Positive for ear pain. Respiratory: Negative. Cardiovascular: Negative. OBJECTIVE BP 128/76 Pulse 102 Resp 16 Wt 315 lb (142.9kg) SpO2 97% LMP 10/21/2023 Physical Exam Vitals and nursing note reviewed. Constitutional: General: She is awake. She is not in acute distress. Appearance: Normal appearance. She is well-developed and well-groomed. She is not ill-appearing, toxic-appearing or diaphoretic. HENT: Head: Normocephalic. Right Ear: External ear normal. There is impacted cerumen. Tympanic membrane is not erythematous. Left Ear: Hearing, tympanic membrane, ear canal and external ear normal. Ears: Comments: Right ear with 100% occlusion, irrigated per support dba and then manual removal of 80% of wax, TM intact and not erythematous but canal is erythematous. Nose: Nose normal. Eyes: General: Vision grossly intact. Conjunctiva/sclera: Conjunctivae normal. Pupils: Pupils are equal, round, and reactive to light. Neck: Vascular: No JVD. Trachea: Trachea normal. Cardiovascular: Rate and Rhythm: Normal rate and regular rhythm. Pulses: Normal pulses. Heart sounds: Normal heart sounds. No murmur heard. Pulmonary: Effort: Pulmonary effort is normal. No accessory muscle usage, prolonged expiration or respiratory distress. Breath sounds: Normal breath sounds. Musculoskeletal: Cervical back: Neck supple. Skin: General: Skin is warm and dry. Capillary Refill: Capillary refill takes less than 2 seconds. Neurological: General: No focal deficit present. Mental Status: She is a (more content not included)... Normal [facility] 12-15-2023 UZIEL Telephone (OBGYWM) ----- KATIE FORDE ([id number]) 2000 F Date Time Provider Department 12/15/23 PAT FERRER OBGYWLiza During your visit today, we recorded the following information about you: Pat Ferrer APRN.MERLIN 12/15/2023 7:07 AM Signed +yeast, Diflucan sent. Pat Ferrer APRN.Rose Rodriguez RN 12/15/2023 8:31 AM Signed Left message for patient to call office. SHAJI Foster Lindsey, RN 12/15/2023 11:09 AM Signed Patient notified and voiced understanding. Ximena Rodriguez RN Allergies As of Date: 12/15/2023 (No Known Allergies) Date Reviewed: 12/12/2023 Reviewed by: Roseanna Aguilar LPN - Fully Assessed Reason for Visit: Results [95] Order(s):fluconazole (DIFLUCAN) 150 mg tabletTake 1 tablet by mouth one time only for 1 dose.Disp: 1 tabletRfl: 0 Prescriptions as of 12/15/2023 - fluconazole (DIFLUCAN) 150 mg tablet Take 1 tablet by mouth one time only for 1 dose. - methylphenidate (RITALIN) 20 mg tablet Take 1 tablet by mouth as needed for up to 30 days. Take at approx. 3-4 pm. Do not start before December 14, 2023. - amphetamine-dextroampheta mine XR (ADDERALL XR) 30 mg capsule Take 1 capsule by mouth every morning for 30 days. Do not start before December 28, 2023. - SUMAtriptan (IMITREX) 50 mg tablet Take 1 by mouth at onset of migraine. May repeat after 2 hours as needed - topiramate (TOPAMAX) 50 mg tablet Take 1 tablet by mouth once daily. - PARoxetine (PAXIL) 20 mg tablet Take 1 tablet by mouth once daily. - medroxyPROGESTERone (PROVERA) 10 mg tablet Take 1 tablet by mouth once daily. - CPAP/BIPAP/OTHER Type .CPAPSettings into a note to see current settings/supplies/DME information. Facility-Administered Medications as of 12/15/2023 - perflutren lipid microspheres 1.3 mL in NaCl (PF) 0.9% 10 mL injection (DEFINITY) - sodium chloride 0.9 % (flush) 10 mL (BD POSIFLUSH) Problem List As Of Date 12/15/2023 Noted Resolved MARFAN'S SYNDROME [Q87.40] 03/05/2006 Viral warts, unspecified [B07.9] 06/25/2008 10/08/2011 Attention deficit hyperactivity disorder (ADHD)*09/22/2008 Subluxation of lens [H27.119] Outbursts of anger [R45.4] 10/12/2012 Delayed immunizations [Z28.9] 11/19/2012 01/23/2016 Depression [F32.A] 09/24/2013 Depersonalization disorder [F48.1] 12/05/2015 Migraine without status migrainosus, not intrac*04/22/2016 Oppositional defiant disorder [F91.3] 02/03/2017 BMI (body mass index), pediatric, 85% to less t*09/16/2017 BMI (body mass index), pediatric, greater than *04/13/2019 Lab test positive for detection of COVID-19 vir*07/04/2020 Anxiety [F41.9] 03/12/2022 Pain in right foot [M79.671] 03/12/2022 Obesity, Class III, BMI >= 40 [E66.01] 09/30/2022 Obesity, Class II, BMI 35-39.9 [E66.9] 01/20/2023 Prescriptions ordered this encounter Disp Refills Start End FLUCONAZOLE 150 MG TABLET 1 ta* 0 12/15/2023 12/15/2023 Route: ORAL Sig: Take 1 tablet by mouth one time only for 1 dose. Encounter Status:Closed by XIMENA RODRIGUEZ on 12/15/23 Normal [facility] BACTERIAL VAGINOSIS NAATon 0 12-12-2023 Lactobacillus crispatus+gasseri+agustina senii + Gardnerella vaginalis + Atopobium vaginae rRNA EDMOND+probe Ql (Vag fld) Negative Normal Negative for bacterial vaginosis [facility] Comment on above: Order Comment: Speci men Type: BLOOD SPECIMEN Ordering Facility: [facility] Address: [address] [place] [address] Performed By: #### 3 016-3, 2841-3 #### [facility] CLIA [id number] [address] [address] [place] [address] [place] YEIMY/TRICHOMONAS NAATon 0 12-12-2023 C. glabrata RNA EDMOND+probe Ql (Vag fld) Negative Normal Negative for Yeimy glabrata [facility] Comment on above: Order Comment: Speci men Type: BLOOD SPECIMEN Ordering Facility: [facility] Address: [address] [place] [address] Performed By: #### 3 016-3, 2842-3 #### [facility] CLIA [id number] [address] [place] [address] [place] Yeimy sp DNA EDMOND+probe Ql (Vag fld) Positive Abnormal Negative for Yeimy species [facility] Comment on above: Order Comment: Speci men Type: BLOOD SPECIMEN Ordering Facility: [facility] Address: [address] [place] [address] Performed By: #### 3 016-3, 2842-3 #### [facility] CLIA [id number] [address] [place] [address] [place] T. vaginalis DNA EDMOND+probe Ql (Unsp spec) Negative Normal Negative for Trichomonas vaginalis by amplification [facility] Comment on above: Order Comment: Speci men Type: BLOOD SPECIMEN Ordering Facility: [facility] Address: [address] [place] [address] Performed By: #### 3 016-3, 2842-3 #### [facility] CLIA [id number] [address] [place] [address] [place] CNOVon 12-12-2023 CNOV Office Visit (OBGYWM ) ----- JONATHANKATIE Candy ([id number]) 2000 F Date Time Provider Department 12/12/23 12:45 PM PAT FERRER OBGYWM During your visit today, we recorded the following information about you: Pulse Respiration Blood pressure Weight 104/minute 14/minute 122/80 142.3 kg Height Last Period 1.829 m 10/21/23 Pat Ferrer APRN.CNP 12/12/2023 1:05 PM 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 Katiekika Forde is a 22 year old female who presents for vaginal pruritis, burning, and discharge for 1 month(s). Vaginal discharge: scant amount. Itching: YES Fever/chills: No Abdominal pain: No Bladder: Negative for dysuria or frequency Are you currently taking any medications to treat vaginitis: No Past medical, surgical, social history, medications and allergies reviewed and updated. OBJECTIVE: BP 122/80 Pulse 104 Resp 14 Ht 6' 0 (1.83m) Wt 313 lb 12.8 oz (142.3kg) SpO2 96% LMP 10/21/2023 BMI 42.55 kg/(m2). GENERAL: Well developed, well nourished in no apparent distress PELVIC: external genitalia normal, normal Bartholin's glands, urethra, So-Hi's glands, no vulvar lesions, no cervical lesions, good vaginal support, physiologic discharge present, normal appearing perineal body and perianal region BIMANUAL: deferred. ASSESSMENT/PLAN: 1. Vaginal itching - ICD9: 698.1, ICD10: N89.8 Will notify patient of test results. - YEIMY/TRICHOMONAS NAAT - BACTERIAL VAGINOSIS NAAT Pat Ferrer APRN.ELECTRIC STOVE MECHANIC Medical Decision Making: Problems: Moderate: New problem with uncertain prognosis Data: Unique test(s) ordered: 2 Risk: Low: Low risk from testing/treatment Medical Decision Making Level: 3 - Low Allergies As of Date: 12/12/2023 (No Known Allergies) Date Reviewed: 12/12/2023 Reviewed by: Roseanna Aguilar LPN - Fully Assessed Reason for Visit: Vaginal Discharge [4161] Vaginal Problem [117] Primary Visit Diagnosis:Vaginal itching [N89.8] Order(s):YEIMY/TRICHOMO KESHIA NAAT [SQCVTV] Order #: [id number] BACTERIAL VAGINOSIS NAAT [SQBVAMP] Order #: [id number] Prescriptions as of 12/12/2023 - methylphenidate (RITALIN) 20 mg tablet Take 1 tablet by mouth as needed for up to 30 days. Take at approx. 3-4 pm. Do not start before December 14, 2023. - amphetamine-dextroampheta mine XR (ADDERALL XR) 30 mg capsule Take 1 capsule by mouth every morning for 30 days. Do not start before December 28, 2023. - SUMAtriptan (IMITREX) 50 mg tablet Take 1 by mouth at onset of migraine. May repeat after 2 hours as needed - topiramate (TOPAMAX) 50 mg tablet Take 1 tablet by mouth once daily. - PARoxetine (PAXIL) 20 mg tablet Take 1 tablet by mouth once daily. - medroxyPROGESTERone (PROVERA) 10 mg tablet Take 1 tablet by mouth once daily. - CPAP/BIPAP/OTHER Type .CPAPSettings into a note to see current settings/supplies/DME information. 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] 03/05/2006 Viral warts, unspecified [B07.9] 06/25/2008 10/08/2011 Attention deficit hyperactivity disorder (ADHD)*09/22/2008 Subluxation of lens [H27.119] Outbursts of anger [R45.4] 10/12/2012 Delayed immunizations [Z28.9] 11/19/2012 01/23/2016 Depression [F32.A] 09/24/2013 Depersonalization disorder [F48.1] 12/05/2015 Migraine without status migrainosus, not intrac*04/22/2016 Oppositional defiant disorder [F91.3] 02/03/2017 BMI (body mass index), pediatric, 85% to less t*09/16/2017 BMI (body mass index), pediatric, greater than *04/13/2019 Lab test positive for detection of COVID-19 vir*07/04/2020 Anxiety [F41.9] 03/12/2022 Pain in right foot [M79.671] 03/12/2022 Obesity, Class III, BMI >= 40 [E66.01] 09/30/2022 Obesity, Class II, BMI 35-39.9 [E66.9] 01/20/2023 Medications Discontinued During This Encounter Prescriptions - Qwlwaede-Tt-Bkm-Fe-FA tab (Discontinued) Take 1 tablet by mouth once daily. Encounter Status:Closed by PAT FERRER on 12/12/23 Normal [facility] Abdomen/Pelvis W IV Cont ONL Yon 12-02-2023 Abdomen/Pelvis W IV Cont ONLY [facility] Imaging Services [address] [place] [address] Abdomen/Pelvis W IV Cont ONLY MR#: [id number] Acct: [id number] Name: KATIE FORDE Rep #: [id number] : 2000 F 22 From: Elvin Santoro MD PCP: Dr. Kate Silva MD Status: REG ER Study: Abdomen/Pelvis W IV Cont ONLY Date of Exam: Exam# [id number] Ordering Dr: Pérez Ren MD [id number] STUDY: CT ABDOMEN AND PELVIS WITH CONTRAST REASON FOR EXAM: Female, 22 years old. RUQ pain s/p liver biopsy 2 weeks ago RADIATION DOSAGE (If Supplied By Facility): CTDIvol = ( 28.47 ) mGy, DLP = ( 1988.91 ) mGycm TECHNIQUE: Transaxial images were obtained from the dome of the diaphragm to the symphysis pubis without oral contrast. IV 100mL Isovue-300 was administered. Sagittal and coronal images were reconstructed. Individualized dose optimization techniques were used for this CT. COMPARISON: None. FINDINGS: The visualized lung bases are unremarkable. The visualized portions of the heart are within normal limits. Normal liver. Normal gallbladder and extrahepatic biliary system. Normal spleen. Normal pancreas. Normal bilateral adrenal glands. Normal right kidney. Normal left kidney. Normal visualized stomach. Normal small intestine. Normal colon. The appendix is visualized and appears normal. Tiny bilateral pericecal nodes likely benign. Normal abdominal aorta. Normal inferior vena cava. Normal retroperitoneum. Normal urinary bladder. Normal abdominal wall. Normal osseous structures. CT/Abdomen/Pelvis W IV Cont ONLY IMPRESSION: No acute abnormalities identified.. Electronically Signed: Elvin Santoro MD at 17:18 EDT , CC: Dr. Pérez Ren MD; Dr. Kate Silva MD [employer]: Signed Normal [facility] CBC W/Diff, Automatedon 06-0 -2023 Absolute Lymph 3.01 X10 3/uL Normal 0.83-4.51 [facility] Comment on above: Performed By: #### L 700.6800, L100.0100, L500.4050 ####[facility] [address] [place], [address] Absolute Neut 9.7 X10 3/uL High 2.0-7.7 [facility] Comment on above: Performed By: #### L 700.6800, L100.0100, L500.4050 ####[facility] [address] [place], [address] Basophils/100 WBC (Bld) 0.7 % Normal 0-1 [facility] Comment on above: Performed By: #### L 700.6800, L100.0100, L500.4050 ####[facility] [address] [place], [address] Eosinophils/100 WBC (Bld) 0.6 % Normal 0-5 [facility] Comment on above: Performed By: #### L 700.6800, L100.0100, L500.4050 ####[facility] [address] [place], [address] Erythrocyte distribution width (RBC) [Ratio] 12.0 % Normal 11.6-14.6 [facility] Comment on above: Performed By: #### L 700.6800, L100.0100, L500.4050 ####[facility] [address] [place], [address] Hematocrit (Bld) [Volume fraction] 42.2 % Normal 37-47 [facility] Comment on above: Performed By: #### L 700.6800, L100.0100, L500.4050 ####[facility] [address] [place], [address] Hemoglobin (Bld) [Mass/Vol] 14.0 g/dL Normal 12.0-15.0 [facility] Comment on above: Performed By: #### L 700.6800, L100.0100, L500.4050 ####[facility] [address] [place], [address] IG% 0.300 Normal 0.0-0.9 [facility] Comment on above: Result Comment: IG% - Immature Granulocytes (promyelocytes, myelocytes and metamyelocytes) > 1% indicates that a LEFT SHIFT is Present. Performed By: #### L 700.6800, L100.0100, L500.4050 ####[facility] [address] [place], [address] Lymphocytes/100 WBC (Bld) 21.9 % Normal 19-41 [facility] Comment on above: Performed By: #### L 700.6800, L100.0100, L500.4050 ####[facility] [address] [place], [address] MCH (RBC) [Entitic mass] 29.7 pg Normal 27.0-32.0 [facility] Comment on above: Performed By: #### L 700.6800, L100.0100, L500.4050 ####[facility] [address] [place], [address] MCHC (RBC) [Mass/Vol] 33.2 g/dL Normal 32-36 [facility] Comment on above: Performed By: #### L 700.6800, L100.0100, L500.4050 ####[facility] [address] [place], [address] MCV (RBC) [Entitic vol] 89.4 fL Normal 81-99 [facility] Comment on above: Performed By: #### L 700.6800, L100.0100, L500.4050 ####[facility] [address] [place], [address] Monocytes/100 WBC (Bld) 5.7 % Normal 0-10 [facility] Comment on above: Performed By: #### L 700.6800, L100.0100, L500.4050 ####[facility] [address] [place], [address] Neutrophils/100 WBC (Bld) 70.8 % High 47-70 [facility] Comment on above: Performed By: #### L 700.6800, L100.0100, L500.4050 ####[facility] [address] [place], [address] Nucleated RBC (Bld) [#/Vol] 0 10*3/uL Normal 0-5 [facility] Comment on above: Performed By: #### L 700.6800, L100.0100, L500.4050 ####[facility] [address] [place], [address] Platelet mean volume (Bld) [Entitic vol] 10.5 fL Normal 6.2-12.0 [facility] Comment on above: Performed By: #### L 700.6800, L100.0100, L500.4050 ####[facility] [address] [place], [address] Platelets (Bld) [#/Vol] 461 10*3/uL High 150-450 [facility] Comment on above: Performed By: #### L 700.6800, L100.0100, L500.4050 ####[facility] [address] [place], [address] RBC (Bld) [#/Vol] 4.72 10*6/uL Normal 4.2-5.4 [facility] Comment on above: Performed By: #### L 700.6800, L100.0100, L500.4050 ####[facility] [address] [place], [address] RDW SD 39.5 fl Normal 35.1-43.9 [facility] Comment on above: Performed By: #### L 700.6800, L100.0100, L500.4050 ####[facility] [address] [place], [address] WBC (Bld) [#/Vol] 13.7 10*3/uL High 4.4-11.0 [facility] Comment on above: Performed By: #### L 700.6800, L100.0100, L500.4050 ####[facility] [address] [place], [address] CNOVon 12-02-2023 OV Office Visit (UCTR ) ----- KATIE FORDE ([id number]) 2000 F Date Time Provider Department 12/02/23 12:15 PM LUCAS SNIDER [facility] During your visit today, we recorded the following information about you: Temperature Pulse Respiration Blood pressure 98.4 degrees 70/minute 18/minute 118/78 Weight 143.2 kg Lucas Snider APRN.CNP 12/02/2023 12:23 PM Signed Patient came in with complaints of cold-like symptoms as well as pain in her right upper abdomen. Patient had a liver biopsy done about 2 weeks ago. Patient did not have any pain after but the pain has recently started for a few days now. Patient says it is an 8 out of 10. Patient says she cannot lay on that side. At this time I do not have imaging to rule out complications. Patient is being referred to the ER for full evaluation patient was okay with this and caregiver notes with patient will take her today. Allergies As of Date: 12/02/2023 (No Known Allergies) Date Reviewed: 12/02/2023 Reviewed by: Vonda Mesa LPN - Fully Assessed Reason for Visit: Cough [28] Cmt: Cough, congestion, sinus and SOTO x 5 days-right side pain x 2 weeks Primary Visit Diagnosis:Right upper quadrant abdominal pain [R10.11] Prescriptions as of 12/02/2023 - Owsjqgkq-Dh-Yfo-Fe-FA tab Take 1 tablet by mouth once daily. - methylphenidate (RITALIN) 20 mg tablet Take 1 tablet by mouth as needed for up to 30 days. Take at approx. 3-4 pm. - amphetamine-dextroampheta mine XR (ADDERALL XR) 30 mg capsule Take 1 capsule by mouth every morning for 30 days. - SUMAtriptan (IMITREX) 50 mg tablet Take 1 by mouth at onset of migraine. May repeat after 2 hours as needed - topiramate (TOPAMAX) 50 mg tablet Take 1 tablet by mouth once daily. - PARoxetine (PAXIL) 20 mg tablet Take 1 tablet by mouth once daily. - medroxyPROGESTERone (PROVERA) 10 mg tablet Take 1 tablet by mouth once daily. - CPAP/BIPAP/OTHER Type .CPAPSettings into a note to see current settings/supplies/DME information. 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] 03/05/2006 Viral warts, unspecified [B07.9] 06/25/2008 10/08/2011 Attention deficit hyperactivity disorder (ADHD)*09/22/2008 Subluxation of lens [H27.119] Outbursts of anger [R45.4] 10/12/2012 Delayed immunizations [Z28.9] 11/19/2012 01/23/2016 Depression [F32.A] 09/24/2013 Depersonalization disorder [F48.1] 12/05/2015 Migraine without status migrainosus, not intrac*04/22/2016 Oppositional defiant disorder [F91.3] 02/03/2017 BMI (body mass index), pediatric, 85% to less t*09/16/2017 BMI (body mass index), pediatric, greater than *04/13/2019 Lab test positive for detection of COVID-19 vir*07/04/2020 Anxiety [F41.9] 03/12/2022 Pain in right foot [M79.671] 03/12/2022 Obesity, Class III, BMI >= 40 [E66.01] 09/30/2022 Obesity, Class II, BMI 35-39.9 [E66.9] 01/20/2023 Encounter Status:Closed by LUCAS SNIDER on 12/02/23 Normal [facility] Metabolic Prof joanne 12-02-2023 Albumin [Mass/Vol] 3.5 g/dL Normal 3.2-5.[address] [facility] Comment on above: Performed By: #### L 700.6800, L100.0100, L500.4050 ####[facility] [address] [place], [address] Albumin/Globulin [Mass ratio] 0.7 {ratio} Low 0.9-2.4 [facility] Comment on above: Performed By: #### L 700.6800, L100.0100, L500.4050 ####[facility] [address] [place], [address] ALK P 92 U/L Normal 45-117 [facility] Comment on above: Performed By: #### L 700.6800, L100.0100, L500.4050 ####[facility] [address] [place], [address] ALT [Catalytic activity/Vol] 129 U/L High 13-56 [facility] Comment on above: Performed By: #### L 700.6800, L100.0100, L500.4050 ####[facility] [address] [place], [address] AST [Catalytic activity/Vol] 100 U/L High 15-37 [facility] Comment on above: Performed By: #### L 700.6800, L100.0100, L500.4050 ####[facility] [address] [place], [address] Bilirubin [Mass/Vol] 0.40 mg/dL Normal 0.20-1.00 [facility] Comment on above: Result Comment: For patients on eltrombopag therapy, use of Dimension Fisher TBIL is not recommended. Performed By: #### L 700.6800, L100.0100, L500.4050 ####[facility] [address] [place], [address] BUN/CRE 10.8 RATIO Normal 10-20 [facility] Comment on above: Performed By: #### L 700.6800, L100.0100, L500.4050 ####[facility] [address] [place], [address] CA,Total 9.3 mg/dL Normal 8.5-10.1 [facility] Comment on above: Performed By: #### L 700.6800, L100.0100, L500.4050 ####[facility] [address] [place], [address] Chloride [Moles/Vol] 104 mmol/L Normal 98-107 [facility] Comment on above: Performed By: #### L 700.6800, L100.0100, L500.4050 ####[facility] [address] [place], [address] CO2 [Moles/Vol] 25.0 mmol/L Normal 21.0-32.0 [facility] Comment on above: Performed By: #### L 700.6800, L100.0100, L500.4050 ####[facility] [address] [place], [address] Creatinine [Mass/Vol] 0.74 mg/dL Normal 0.55-1.02 [facility] Comment on above: Result Comment: The validity of the calculated GFR GFRAA in patients over 70 years has not been determined. Clinical correlation is essential. Performed By: #### L 700.6800, L100.0100, L500.4050 ####[facility] [address] [place], [address] ECRCL 189.65 ml/min Normal [facility] Comment on above: Performed By: #### L 700.6800, L100.0100, L500.4050 ####[facility] [address] [place], [address] EST GFR - AA 123 mL/min Normal >60 [facility] Comment on above: Result Comment: Afri can Malagasy GFR Calc Performed By: #### L 700.6800, L100.0100, L500.4050 ####[facility] [address] [place], [address] GAP 7 Normal 5-15 [facility] Comment on above: Performed By: #### L 700.6800, L100.0100, L500.4050 ####[facility] [address] [place], [address] GFR/1.73 sq M.predicted among non-blacks MDRD (S/P/Bld) [Vol rate/Area] 102 mL/min/{1.73_m2} Normal >60 [facility] Comment on above: Result Comment: Non- GFR Calc Performed By: #### L 700.6800, L100.0100, L500.4050 ####[facility] [address] [place], [address] Globulin (S) [Mass/Vol] 4.7 g/dL High 2.2-4.2 [facility] Comment on above: Performed By: #### L 700.6800, L100.0100, L500.4050 ####[facility] [address] [place], [address] Glucose [Mass/Vol] 153 mg/dL High 74-[address] [facility] Comment on above: Result Comment: Fast ing Glucose result greater than or equal to 126 mg/dL suggests DIABETES MELLITUS per A.D.A. criteria. Performed By: #### L 700.6800, L100.0100, L500.4050 ####[facility] [address] [place], [address] Potassium [Moles/Vol] 3.9 mmol/L Normal 3.5-5.1 [facility] Comment on above: Performed By: #### L 700.6800, L100.0100, L500.4050 ####[facility] [address] [place], [address] Sodium [Moles/Vol] 136 mmol/L Normal 136-[address] [facility] Comment on above: Performed By: #### L 700.6800, L100.0100, L500.4050 ####[facility] [address] [place], [address] T PROT 8.2 g/dL Normal 6.4-8.2 [facility] Comment on above: Performed By: #### L 700.6800, L100.0100, L500.4050 ####[facility] [address] [place], [address] Urea nitrogen [Mass/Vol] 8 mg/dL Normal 7-18 [facility] Comment on above: Performed By: #### L 700.6800, L100.0100, L500.4050 ####[facility] [address] [place], [address] Emergency Department Summary on 12-02-2023 Emergency Department Summary [facility] Medical Records Department [address] [place] [address] Emergency Department Summary 12/02/23 MR#: [id number] Acct: [id number] Name: KATIE FORDE Rep #: [id number] : 2000 From: Pérez Ren MD PCP: Dr. Kate Silva MD Status:DEP ER Location: ED HPI HPI - GI History of Present Illness Chief Complaint: Abd Pain Narrative Narrative: 22-year-old female past medical history of fatty liver, presents with her mother because of right upper quadrant abdominal pain that she has had since Friday, 5 days ago. She relates history that on 20 November, approximately 11 days ago, she had a liver biopsy because with her history of fatty liver, her LFTs were elevating, and they wanted to make sure that nothing else was going on. She states that she was ruled out for autoimmune hepatitis with the biopsy results, but presents to the emergency department today because she started developing pain after her needle biopsy 5 days ago. She went to urgent care today, and they pressed on her abdomen and it was very sore. She denies any fevers or chills, no nausea or vomiting, no other symptoms. [facility] Medical History Smoker Marfan syndrome ADHD (attention deficit hyperactivity disorder) Retinal detachment, old, total/subtotal Femur fracture, right Home Medications ???Medication ???Instructions ???Recorded ???Last Taken ???Type dextroamphetamine-ampheta mine 30 30 mg PO DAILY 04/03/15 Unknown History mg tablet (Adderall) methylphenidate HCl 20 mg tablet 20 mg PO DAILY 04/03/15 Unknown History (Ritalin) medroxyprogesterone 10 mg tablet 10 mg PO DAILY 12/02/23 11/30/23 History vit no.95-ferrous 1 tab PO DAILY 12/02/23 Unknown History fumarate 28 mg-folic acid 800 mcg tablet () Allergy/AdvReac Type Severity Reaction Status Date / Time No Known Allergies Allergy Verified 12/02/23 14:21 Surgical History History of liver biopsy Social History Smoking Status: Light Smoker (<10/day) ROS ROS ED ROS Narrative Constitutional: No fever, no chills. HEENT: No sore throat. No neck pain. No loss of vision. No rhinorrhea. Cardiovascular: No chest pain. No palpitations. No pedal edema. Respiratory: No cough, no shortness of breath. Abdominal: Right upper quadrant abdominal pain. No nausea. No vomiting. Genitourinary: No dysuria. No hematuria. Musculoskeletal: No myalgias. No arthralgias. Neurologic: No headaches. No dizziness. No lightheadedness. Skin: No rash. No change in color. Psychiatric: No depression. No anxiety. EXAM Physical Exam Narrative Exam Narrative: Afebrile. Vital signs noted. HEENT: Normocephalic. Atraumatic. PERRL, EOMI. Neck soft and supple. No point tenderness or step off. Cardiovascular: Regular rate and rhythm. No murmurs, rubs, or gallops appreciated. Respiratory: No tachypnea. Lungs clear to auscultation bilaterally. Gastrointestinal: Abdomen soft, mild tenderness right upper quadrant of abdomen, but negative Diaz sign with normoactive bowel sounds. No rebound or guarding. No noted ecchymosis of abdomen, no erythema. Neurological: Awake. Alert. Nonfocal, nonlateralizing. Skin: No rash. Normal color. No pallor. Musculoskeletal: No pedal edema. Full range of motion extremities. Const Vital Signs: 12/02/23 14:19 12/02/23 16:19 12/02/23 18:00 Temperature 97.2 F L Temperature Source Temporal Pulse Rate 116 H 81 78 Respiratory Rate 18 16 18 Blood Pressure 153/88 H 138/76 H 132/74 H Blood Pressure Mean 109 96 93 Pulse Ox 97 98 96 Oxygen Delivery Method Room Air Room Air Room Air 12/02/23 18:00 Temperature 98.1 F Temperature Source Pulse Rate 78 Respiratory Rate 18 Blood Pressure 132/74 H Blood Pressure Mean 93 Pulse Ox 96 Oxygen Delivery Method MDM MDM MDM Narrative Medical decision making narrative: Patient's area of pain and tenderness seems to be more in the right upper quadrant and possibly over the site of the needle biopsy. In the differential diagnosis is intra-abdominal/liver abscess versus seroma of the abdominal wall versus hematoma. I have low suspicion for intra-abdominal abscess based on the history and physical as it does not support this. Patient did have intermittent tachycardia. She will be bolused normal saline and I will draw CBC, and a CMP to check her liver function studies as well. Serum will be drawn and I do feel CT imaging with IV contrast should be obtained to rule out intra-abdominal process. I reviewed the patient's laboratory work and she has slightly elevated white count of 13.7 which I think is nonspecific, nor (more content not included)... Normal [facility] ,Serum,hCG Quali.on 12-02-2023 HCG, SERUM QUAL Negative Normal [facility] Comment on above: Performed By: #### L 700.6800, L100.0100, L500.4050 ####[facility] [address] [place], [address] BRIEF OP NOTon 11-21-2023 BRIEF OP NOT HNO ID: [id number] Author: RASTA DUMONT MD Service: Interventional Radiology Author Type: Physician Type: Brief Op Note Filed: 11/21/2023 11:09 Note Text: INTERVENTIONAL RADIOLOGY POST PROCEDURE NOTE DATE: 11/21/23 NAME: Katie Forde LOG ID: [id number] Pre-Procedure Diagnosis: NAFLD Adzing And Boring Machine Feeder: Surgeon(s) and Role: * Rasta Dumont MD, MD - Primary Procedure: Image-guided random liver biopsy right hepatic lobe Anesthesia: Local anesthesia and procedural sedation Findings: The chosen hepatic lobe was biopsied under direct image guidance using a 17/18 coaxial system obtaining adequate biopsy samples Estimated Blood Loss: Less than 5 mL Specimen: Adequate core biopsy samples were sent to Pathology Complications: None Post-Op/Post-Procedure Diagnosis: - Successful image-guided random liver biopsy - Please see Radiology report for complete information Normal [facility] HISTORY PHYSICALon HISTORY PHYSICAL HNO ID: [id number] Author: RASTA DUMONT MD Service: Interventional Radiology Author Type: Physician Type: H&P Filed: 11/21/2023 11:11 Note Text: UPDATED HISTORY AND PHYSICAL EXAMINATION Date: 11/21/23 Name: Katie Forde PHYSICAL EXAM MUST BE COMPLETED ON ADMISSION The History and Physical (completed in the past 30 days) has been reviewed and the patient has been examined. The contents accurately reflect the patient's condition with the following additions or revisions since the HANDP was completed. Examination indicates no changes. This HANDP can be found in the attached. Normal [facility] SURGICAL PATHOLOGYon 024 CASE REPORT Normal [facility] Comment on above: Order Comment: Speci minna Type: TISSUE SPECIMEN Ordering Facility: [facility] Address: [address] [place] [address] Result Comment: Surg ica Pathology Report Case: [id number] Authorizing Provider: Rasta Dumont, Collected: 11/21/2023 10:53 AM MD MARCELA Ordering Location: [facility] Received: 11/21/2023 12:44 PM INTERVENTIONAL RADIOLOGY Pathologist: Scott Worthy MD Specimen: Liver, Biopsy Performed By: #### S #### [facility] CLIA [id number] [address] CLINICAL HISTORY NAFLD Normal [facility] Comment on above: Order Comment: Specmirta buitrago Type: TISSUE SPECIMEN Ordering Facility: [facility] Address: [address] [place] [address] Performed By: #### S #### [facility] CLIA [id number] [address] DIAGNOSIS COMMENT Normal [facility] Comment on above: Order Comment: Lore buitrago Type: TISSUE SPECIMEN Ordering Facility: [facility] Address: [address] [place] [address] Result Comment: The patient is a 22-year-old obese female with a clinical history of NAFLD. Recent pertinent laboratories include normal alkaline phosphatase, AST 71 (13-35), ALT 115 (7-38), positive anti-smooth muscle antibody (weak), and negative AMA and viral hepatitis studies. Sections demonstrate benign hepatic parenchyma with approximately 5% macrovesicular steatosis. The lobular parenchyma shows rare hepatocytes as well as few ballooned hepatocytes. There are small foci of lobular inflammation present. Glycogenated nuclei are also seen. Portal areas contain focal mild inflammatory infiltrates consisting of lymphocytes with a few eosinophils seen. There is no significant piecemeal necrosis seen. An iron stain reveals no evidence of increased tissue iron. A PAS/D stain reveals no evidence of cellular inclusions. A reticulin stain reveals intact reticulin networks. A trichrome stain reveals no evidence of increased fibrosis. In summary findings are consistent with a steatohepatitis pattern of injury with a NAFLD activity score (KESHIA) of 3/8 (steatosis score 1, ballooned hepatocytes score 1, lobular inflammation score 1). There is no evidence of increased fibrosis (stage 0). Tin Pot Operator slides were reviewed by Dr. Zhen Eddy who agrees with this assessment. Performed By: #### S #### [facility] CLIA [id number] [address] [place] [address] FINAL DIAGNOSIS Normal [facility] Comment on above: Order Comment: Lore buitrago Type: TISSUE SPECIMEN Ordering Facility: [facility] Address: [address] [place] [address] Result Comment: Abbey lópez, core biopsy: - Steatohepatitis pattern of injury. No evidence of fibrosis. See comment. Performed By: #### S #### [facility] CLIA [id number] [address] [place] [address] FINAL PERFORMING LAB Normal [facility] Comment on above: Order Comment: Lore buitrago Type: TISSUE SPECIMEN Ordering Facility: [facility] Address: [address] [place] [address] Result Comment: Diag nostic interpretation performed at [facility], [address] [place] [address] CLIA# [id number] [employer] Dashboard Developer: Scott oWrthy M.D. Performed By: #### S #### [facility] CLIA [id number] [address] GROSS DESCRIPTION Normal [facility] Comment on above: Order Comment: Speci men Type: TISSUE SPECIMEN Ordering Facility: [facility] Address: [address] [place] [address] Result Comment: Abbey lópez, Biopsy Received in formalin labeled as ``liver biopsy? are 3 fragmented segments of cylindrical tissue ranging from 1.6 to 2.2 cm in length with a thickness of 0.1 cm, leon and of a soft and slightly rubbery consistency. Totally submitted in formalin in 1 cassette. Gross examination performed at [facility], [address] [place] [address] CLIA# [id number] RSA November 21, 2023 3:24 PM Performed By: #### S #### [facility] CLIA [id number] [address] US BIOPSY LIVERon 11-21-2023 US BIOPSY LIVER * * *Final Report* * * DATE OF EXAM: Nov 21 2023 11:03AM [facility] 1073 - US BIOPSY LIVER / PROCEDURE REASON: K76.0, R76.8 * * * * Physician Interpretation * * * * 1. US-GUIDED RANDOM LIVER BIOPSY 2. MODERATE SEDATION INDICATION: K76.0, R76.8. Non-alcoholic fatty liver disease. Image-guided random liver biopsy has been requested by the referring physician. COMPARISON: Right upper quadrant ultrasound dated 04/28/2023. Films obtained during previous ultrasound-guided biopsy of the liver dated 07/05/2022. TECHNIQUE AND FINDINGS: The advantages, alternatives and potential complications of image-guided random liver biopsy (including but not limited to bleeding that may required blood transfusion or embolization, vascular complications such as PSA and AVF, damage of biliary tree and biloma, damage of surrounding organs, infection, pneumothorax, adverse effect of intraprocedure medications and aggravation of underlying medical conditions, among others) were discussed with the patient who understood the discussion and provided consent for the procedure. Preprocedure labs were in acceptable range for the procedure. Time out was performed prior to the study. Scanning of the liver was performed prior to the procedure to define the puncture site. The left hepatic lobe was obscured by overlying bony structures. The inferior aspect of the right hepatic lobe was chosen for biopsy. Images were saved in the patient's permanent record. The surgical site was cleaned, prepped and draped. Maximal sterile barrier technique was used throughout the complete procedure. Local anesthesia was given to the soft tissues with lidocaine 1%. A 17 G guiding needle was advanced to the liver parenchyma under image guidance. Coaxial biopsy of the lesion was performed with a 18 G ronn-cut needle. A total of 4 core samples were obtained and sent to to pathology for analysis. The biopsy samples appeared adequate for diagnosis. The biopsy track was treated with Gelfoam slurry. The post procedure scan demonstrated no complications. The patient tolerated the procedure well and was discharged from the procedure room in stable condition. The patient will remain in observation for at least 2 hours. MODERATE SEDATION: Under Dr. Angelo's supervision, Versed 1.5 mg and Fentanyl 150 micrograms were provided intravenously for moderate conscious sedation. Heart rate, blood pressure and oxygen saturation were continuously monitored during the complete procedure by the IR physician and IR nurse. Moderate sedation physician-patient face time: 35 minutes. Estimated blood loss: Less than 10 cc. Medications: Lidocaine 1% 10 cc. Contrast: None. IMPRESSION: 1. Successful US-guided random liver biopsy as described above. 2. No immediate complications. Fisher Purse Seine: SILVIANO Transcribe Date/Time: Nov 22 2023 12:44A Dictated by : RASTA DUMONT MD This examination was interpreted and the report reviewed and electronically signed by: RASTA DUMONT MD on Nov 22 2023 1:15AM EST [id number] Normal [facility] STREP A MOLECULAR (POC)on Procedural Control Valid [facility] Strep A (POCT) Negative Negative [facility] COVID & INFLUENZA A/B & RSV NAAT, ROUTINEon 08-18-2023 FLUAV RNA EDMOND+probe Ql (Unsp spec) Not detected Not Detected [facility] FLUBV RNA EDMOND+probe Ql (Unsp spec) Not detected Not Detected [facility] RSV A RNA EDMOND+probe Ql (Unsp spec) Not detected Not Detected [facility] SARS-CoV-2 (COVID-19) RNA EDMOND+probe Ql (Resp) Detected Abnormal See comment [facility] BACTERIAL VAGINOSIS NAATon 0 08-11-2023 Lactobacillus crispatus+gasseri+agustina senii + Gardnerella vaginalis + Atopobium vaginae rRNA EDMOND+probe Ql (Vag fld) Negative Negative for bacterial vaginosis [facility] YEIMY/TRICHOMONAS NAATon 0 08-11-2023 C. glabrata RNA EDMOND+probe Ql (Vag fld) Negative Negative for Yeimy glabrata [facility] Yeimy sp DNA EDMOND+probe Ql (Vag fld) Positive Abnormal Negative for Yeimy species [facility] T. vaginalis DNA EDMOND+probe Ql (Unsp spec) Negative Negative for Trichomonas vaginalis by amplification [facility] No Panel Informationon 04-28 [facility] US FEMALE PELVIS TRANSVAGon 04-17-2023 [facility] STREP A MOLECULAR (POC)on Procedural Control Valid [facility] Strep A (POCT) Negative Negative [facility] SPIROMETRY WITH DILATOR IF O BSTRUCTEDon 11-05-2022 GTE20-89% POST (L/S) 2.91 L/S [facility] NCH91-92% PRE (L/S) 2.83 L/S [facility] FEV1 PRE (L) 3.49 L [facility] FEV1/FVC POST (%) 76 % [facility] FEV1/FVC PRE (%) 73 % [facility] FEV1_POST (L) 3.50 L [facility] FVC POST (L) 4.61 L [facility] FVC PRE (L) 4.74 L [facility] PEF POST (L/S) 5.45 L/S [facility] PEF PRE (L/S) 5.78 L/S [facility] CTA CORONARY W IVCONon 10-31 CTA CORONARY W IVCON * * *Final Report* * * DATE OF EXAM: Oct 31 2022 2:04PM [facility] 0470 - CTA CORONARY W IVCON / PROCEDURE REASON: R07.2-Precordial pain * * * * Physician Interpretation * * * * Coronary CTA dated 10/31/2022 2:04 PM Comparison: None History: 21 years old Female with Marfan syndrome referred for index assessment of thoracic aorta, was protocolled as coronary CTA. Technique: Multi-detector CT technology was employed (Revolution Ascend scanner). Spiral imaging with retrospective gating and minimal slice thickness was performed following the IV administration of contrast material. Because of the patient's cardiovascular disease history, a low-osmolar contrast agent was used (90 ml Omnipaque 350). The patient was premedicated with 5 mg i.v. lopressor and 0.3 mg sublingual nitroglycerin for heart rate control and coronary dilation, respectively. CT Dose-Length Product (DLP): [address] Dose Reduction Employed: Yes For optimization of anatomic evaluation, multiplanar reconstruction, maximum intensity projections, and advanced 3-D off-line postprocessing were performed on a dedicated stand-alone workstation under the direct supervision of the interpreting physician. RESULT: Potential study limitations: None. CHEST: The visualized chest wall is unremarkable. There is no significant adenopathy noted in the axillae, mediastinum, and yoly. The pericardium and pulmonary arteries appear normal. There is no central or lobar pulmonary artery thrombus. Assessment of the distal branches is limited. Lung windows reveal no acute abnormalities. Patent airways. There is no pleural effusion. The cardiac chambers demonstrate normal atrioventricular and ventriculoarterial concordance, and systemic and pulmonary venous return. The cardiac chamber sizes are normal. There is no significant mitral annular calcification. The left atrial appendage is unremarkable. The coronary arteries have normal origins and courses. There are no distinct coronary calcifications, though this study was not optimized for coronary artery evaluation. Grossly patent all 3 coronary arteries. VASCULAR WITH ADVANCED 3-D OFF-LINE POSTPROCESSING: Aortic valve morphology is trileaflet, and free from calcifications. The visualized thoracic aorta is normal in course, caliber, and contour. There is no acute aortic pathology, such as dissection, intramural hematoma, or contained rupture. Tin Pot Operator dimensions of the thoracic aorta are as follows: 3.8 cm at the sinuses of Valsalva measured sinus to sinus. 2.7 cm at the mid ascending aorta the distal ascending aorta and mid transverse arch not visualized 2.2 cm at the proximal descending thoracic aorta 2.0 cm at the diaphragmatic hiatus UPPER ABDOMEN: The limited images of the upper abdomen reveal no abnormalities of the visualized organs. IMPRESSION: 1. The visualized thoracic aorta is normal in course, caliber, and contour. There is no acute aortic pathology, such as dissection, intramural hematoma, or contained rupture. 2. No coronary anomaly. No evidence of coronary artery atherosclerosis. Fisher Purse Seine: PSCCrispin Transcribe Date/Time: Oct 31 2022 3:03P Dictated by : CLARISA ADAMES MD This examination was interpreted and the report reviewed and electronically signed by: CLARISA ADAMES MD on Oct 31 2022 5:33PM EST [id number] [facility] NURSING PROGon 10-31-2022 NURSING PROG HNO ID: [id number] Author: Karma Buchanan RN Service: Radiology Author Type: Registered Nurse Type: Nursing Progress Note Filed: 10/31/2022 2:28 PM Note Text: Radiology Service Progress Note PATIENT NAME: Katie Forde DATE OF SERVICE: October 31, 2022 TIME: 2:22 PM PATIENT IDENTITY VERIFICATION COMPLETED USING TWO (2) STANDARD IDENTIFIERS: Name and Date of confirmed by patient verbally and Name and Date of confirmed by identification band. PATIENT GENDER DATA: Female. status: : No status: NO. PATIENT RELEVANT IMPLANT DATA REVIEWED: Not Applicable ALLERGIES: Reviewed and unchanged MEDICATIONS REVIEWED: YES PROCEDURE TYPE: CT: Beta Blocking and CT: NTG SL PATIENT SCREENING: Precordial pain IV SITE: Ambulatory: A peripheral IV was started in the Right antecubital site with a Angio cath: 18 gauge. PERIPHERAL IV ACCESS: Discontinued CARDIAC MEDICATIONS: Nitroglycerin 0.3 mg SL given and Metoprolol (Lopressor) 5 mg IV dose(s) given for a total of 5 mg given Vitals before medications: 120/58 HR: 92 Pulse ox: 98% on room air Vitals after 1 SL nitro (given at 1330): 111/64 HR: 78 97% on room air 5mg IV metoprolol given at 1354 and scan performed. After scan, patient was having no symptoms. Orthostatic vitals obtained. Layin/70 HR: 77 99% on RA Sittin/71 HR: 82 98% on room air Standin/78 HR: 76 98% on room air PATIENT DISCHARGED TO: Home/Self Care SIGNED BY: Karma Buchanan RN October 31, 2022 2:22 PM [facility] STREP A MOLECULAR (POC)on Procedural Control Valid [facility] Strep A (POCT) Negative Negative [facility] Influenza virus A and B RNA and SARS-CoV-2 (COVID-19) N gene panel EDMOND+probe (Resp)on 07-09-2022 FLUAV RNA EDMOND+probe Ql (Unsp spec) Negative Negative for Influenza A by RT-PCR [facility] FLUBV RNA EDMOND+probe Ql (Unsp spec) Negative Negative for Influenza B by RT-PCR [facility] SARS-CoV-2 (COVID-19) RNA EDMOND+probe Ql (Resp) SARS-CoV-2 (Agent of COVID-19) Not Detected by RT-PCR or equivalent method. Not Detected [facility] US IMAGING GUIDED BIOPSY JERILYN Jeremy 07-05-2022 [facility] US ABD RT UPPER QUADRANTon 1 [facility] Absolute lymphocyte counton 04-11-2022 Lymphocytes Auto (Unsp spec) [#/Vol] 5.53 10*3/uL 0.83-4.51 [facility] Work Phone: [phone] Basophil percentageon 2021 Basophils/100 WBC (Bld) 0.7 % 0-1 [facility] Work Phone: Bilirubin [Mass/Vol] 0.30 mg/dL 0.20-1.00 [facility] Work Phone: Comment on above: For patients on eltr ombopag therapy, use of Dimension Fisher TBIL is not recommended. Chloride [Moles/Vol] 106 mmol/L 98-107 [facility] Work Phone: Eosinophils/100 WBC (Bld) 1.6 % 0-5 [facility] Work Phone: Glucose [Mass/Vol] 92 mg/dL 74-[address] [facility] Work Phone: Neutrophils (Bld) [#/Vol] 8.3 10*3/uL 2.0-7.7 [facility] Work Phone: Neutrophils/100 WBC (Bld) 54.4 % 47-70 [facility] Work Phone: [phone] Potassium [Moles/Vol] 3.8 mmol/L 3.5-5.1 [facility] Work Phone: [phone] Protein [Mass/Vol] 8.1 g/dL 6.4-8.2 [facility] Work Phone: [phone] Sodium [Moles/Vol] 140 mmol/L 136-[address] [facility] [facility] Work Phone: [phone] WBC (Bld) [#/Vol] 15.3 10*3/uL 4.4-11.0 [facility] Work Phone: [phone] Blood erythrocytes count (nu mber/volume)on 04-11-2022 RBC (Bld) [#/Vol] 4.38 10*6/uL 4.2-5.4 [facility] Work Phone: [phone] Blood hemoglobin measurement (mass/volume)on 04-11-2022 Hemoglobin (Bld) [Mass/Vol] 13.5 g/dL 12.0-15.0 [facility] Work Phone: Blood lymphocytes/100 leukoc yteson 04-11-2022 Lymphocytes/100 WBC (Bld) 36.2 % 19-41 [facility] Work Phone: Blood manual differential co mment interpretation (narrative result)on 04-11-2022 Manual differential comment Jeff (Bld) [Interp] SCANNED [facility] Work Phone: Blood monocytes/100 leukocyt eson 04-11-2022 Monocytes/100 WBC (Bld) 6.8 % 0-10 [facility] Work Phone: Blood platelet mean volumeon 04-11-2022 Platelet mean volume (Bld) [Entitic vol] 9.7 fL 6.2-12.0 [facility] Work Phone: [phone] Determination of erythrocyte mean corpuscular volume (MCV)on 04-11-2022 MCV (RBC) [Entitic vol] 90.2 fL 81-99 [facility] Work Phone: [phone] Direct bilirubinon Bilirubin.direct [Mass/Vol] 0.07 mg/dL 0.00-0.30 [facility] Work Phone: Hematocrit Auto (Bld) [Volum e fraction]on 04-11-2022 Hematocrit (Bld) [Volume fraction] 39.5 % 37-47 [facility] Work Phone: Laboratory - Chemistry and C hemistry - challengeon 04-11-2022 ALP [Catalytic activity/Vol] 78 U/L 45-117 [facility] Work Phone: ALT [Catalytic activity/Vol] 92 U/L 13-56 [facility] Work Phone: CO2 [Moles/Vol] 27.0 mmol/L 21.0-32.0 [facility] Work Phone: Globulin (S) [Mass/Vol] 4.7 g/dL 2.2-4.2 [facility] Work Phone: Lipase [Catalytic activity/Vol] 124 U/L 73-393 [facility] Work Phone: Urea nitrogen/Creatinine [Mass ratio] 10.3 mg/mg 10-20 [facility] Work Phone: Laboratory - Hematology and Cell countson 04-11-2022 Erythrocyte distribution width (RBC) [Entitic vol] 40.5 fL 35.1-43.9 [facility] Work Phone: Erythrocyte distribution width (RBC) [Ratio] 12.1 % 11.6-14.6 [facility] Work Phone: Immature granulocytes/100 WBC (Bld) 0.300 % 0.0-0.9 [facility] Work Phone: Comment on above: IG% - Immature Granu locytes (promyelocytes, myelocytes and metamyelocytes) > 1% indicates that a LEFT SHIFT is Present. MCH (RBC) [Entitic mass] 30.8 pg 27.0-32.0 [facility] Work Phone: Nucleated RBC/100 WBC (Bld) [Ratio] 0 % 0-5 [facility] Work Phone: MCHC Auto (RBC) [Mass/Vol]on 04-11-2022 MCHC (RBC) [Mass/Vol] 34.2 g/dL 32-36 [facility] Work Phone: No Panel Informationon 04-11 Estimated Creatinine Clearance Calc 135.25 ml/min [facility] Work Phone: Estimated GFR (MDRD) Amer 119 mL/min >60 [facility] Work Phone: Comment on above: GFR Calc Estimated GFR (MDRD) Non-Af Amer 98 mL/min >60 [facility] Work Phone: Comment on above: Non- GFR Calc Troponin I High Sensitivity 4 pg/mL 3.0-54.0 [facility] Work Phone: Comment on above: Please Note: New Susan t Units and Gender Specific Reference Ranges. For more information see Policy Stat Procedure Fisher High Sensitivity Troponin (TNIH) and attachments. Platelets bldon 04-11-2022 Platelets (Bld) [#/Vol] 493 10*3/uL 150-450 [facility] Work Phone: Serum or plasma albumin lawrence urement (mass/volume)on 04-11-2022 Albumin [Mass/Vol] 3.4 g/dL 3.2-5.[address] [facility] Work Phone: Serum or plasma calcium lawrence urement (mass/volume)on 04-11-2022 Calcium [Mass/Vol] 8.8 mg/dL 8.5-10.[address] [facility] Work Phone: Serum or plasma creatinine m easurement (mass/volume)on 04-11-2022 Creatinine [Mass/Vol] 0.77 mg/dL 0.55-1.02 [facility] Work Phone: Comment on above: The validity of the calculated GFR & GFRAA in patients over 70 years has not been determined. Clinical correlation is essential. Serum or plasma urea nitroge n measurement (mass/volume)on 04-11-2022 Urea nitrogen [Mass/Vol] 8 mg/dL 7-18 [facility] Work Phone: Thin prep Papanicolaou smear with manual screeningon 04-11-2022 Thin prep Papanicolaou smear with manual screening 53 U/L 15-37 [facility] Work Phone: Thin prep Papanicolaou smear with manual screening 7 5-15 [facility] Work Phone: UA DIP, URINE (POC)on 2021 BILIRUBIN UA (POCT) Negative Negative [facility] CLARITY UA (POCT) Clear [facility] COLOR UA (POCT) Yellow [facility] GLUCOSE UA (POCT) Negative Negative mg/dL [facility] HEMOGLOBIN/BLOOD UA (POCT) Negative Negative [facility] KETONE UA (POCT) Negative Negative mg/dL [facility] LEUKOCYTES UA (POCT) Negative Negative [facility] NITRITE UA (POCT) Negative Negative [facility] PH UA (POCT) 8.5 Abnormal 4.5 - 8.0 [facility] Protein Ql (U) 30 mg/dL Abnormal Negative mg/dL [facility] SPECIFIC GRAVITY UA (POCT) 1.020 1.005 - 1.030 [facility] UROBILINOGEN UA (POCT) 0.2 E.U./dL Normal E.U./dL [facility] No Panel Informationon 02-20 IMPRESSION: RIGHT ANKLE: Within normal limits. No bone or joint abnormalities seen. RIGHT FOOT: Within normal limits. No acute findings. Fisher Purse Seine: PSCB Transcribe Date/Time: Feb 20 2022 7:11P Dictated by : ISAIAS SMYTH MD This examination was interpreted and the report reviewed and electronically signed by: ISAIAS SMYTH MD on Feb 20 2022 7:15PM [facility] DIVISION OF RADIOLOGY Radiology Study observation (narrative) [facility] No Panel InformationOrdered By: Ccf Provider on 02-20-2022 [facility] XR Ankle - right AP and Late ral and obliqueon 02-20-2022 * * *Final Report* * * DATE OF EXAM: Feb 20 2022 7:06PM WOX 5297 - XR ANKLE 3V AP/LAT/OBL RT / PROCEDURE REASON: Acute right ankle pain * * * * Physician Interpretation * * * * RIGHT ANKLE, 3 VIEWS, 02/20/2022 RIGHT FOOT, 3 VIEWS, 02/20/2022 HISTORY: Right ankle and right foot pain. COMPARISON: None TECHNIQUE: Right ankle: Upright AP, lateral, and internal oblique views. The left ankle was included for comparison in the AP projection. Right foot: Standing AP and lateral views. The left foot was included for comparison in the AP projection. Oblique view also of the right foot. RESULTS: RIGHT ANKLE: The bones appear intact and normally aligned. There is no widening of the ankle mortise. There are no underlying bone lesions. The joint spaces appear normal. There are no soft tissue calcifications. The left ankle appears normal and the comparison AP projection. RIGHT FOOT: The bones appear intact. Alignment is normal. There are no underlying bone or joint abnormalities. There is minimal posterior calcaneal enthesophyte. There are no soft tissue calcifications or radiopaque foreign bodies. The left foot appears normal on the comparison AP projection. DIVISION OF RADIOLOGY Provider, [facility] - 02/20/2022 * * *Final Report* * * DATE OF EXAM: Feb 20 2022 7:06PM WOX 5297 - XR ANKLE 3V AP/LAT/OBL RT / PROCEDURE REASON: Acute right ankle pain * * * * Physician Interpretation * * * * RIGHT ANKLE, 3 VIEWS, 02/20/2022 RIGHT FOOT, 3 VIEWS, 02/20/2022 HISTORY: Right ankle and right foot pain. COMPARISON: None TECHNIQUE: Right ankle: Upright AP, lateral, and internal oblique views. The left ankle was included for comparison in the AP projection. Right foot: Standing AP and lateral views. The left foot was included for comparison in the AP projection. Oblique view also of the right foot. RESULTS: RIGHT ANKLE: The bones appear intact and normally aligned. There is no widening of the ankle mortise. There are no underlying bone lesions. The joint spaces appear normal. There are no soft tissue calcifications. The left ankle appears normal and the comparison AP projection. RIGHT FOOT: The bones appear intact. Alignment is normal. There are no underlying bone or joint abnormalities. There is minimal posterior calcaneal enthesophyte. There are no soft tissue calcifications or radiopaque foreign bodies. The left foot appears normal on the comparison AP projection. IMPRESSION IMPRESSION: RIGHT ANKLE: Within normal limits. No bone or joint abnormalities seen. RIGHT FOOT: Within normal limits. No acute findings. [facility] P[facility] Seine: PSCB Transcribe Date/Time: Feb 20 2022 7:11P Dictated by : ISAIAS SMYTH MD This examination was interpreted and the report reviewed and electronically signed by: ISAIAS SMYTH MD on Feb 20 2022 7:15PM EST [facility] XR Foot - right AP and Later al and obliqueon 02-20-2022 * * *Final Report* * * DATE OF EXAM: Feb 20 2022 7:06PM WOX 5337 - XR FOOT 3V AP/LAT/OBL RT / PROCEDURE REASON: Foot pain, right * * * * Physician Interpretation * * * * RIGHT ANKLE, 3 VIEWS, 02/20/2022 RIGHT FOOT, 3 VIEWS, 02/20/2022 HISTORY: Right ankle and right foot pain. COMPARISON: None TECHNIQUE: Right ankle: Upright AP, lateral, and internal oblique views. The left ankle was included for comparison in the AP projection. Right foot: Standing AP and lateral views. The left foot was included for comparison in the AP projection. Oblique view also of the right foot. RESULTS: RIGHT ANKLE: The bones appear intact and normally aligned. There is no widening of the ankle mortise. There are no underlying bone lesions. The joint spaces appear normal. There are no soft tissue calcifications. The left ankle appears normal and the comparison AP projection. RIGHT FOOT: The bones appear intact. Alignment is normal. There are no underlying bone or joint abnormalities. There is minimal posterior calcaneal enthesophyte. There are no soft tissue calcifications or radiopaque foreign bodies. The left foot appears normal on the comparison AP projection. DIVISION OF RADIOLOGY Provider, [facility] - 02/20/2022 * * *Final Report* * * DATE OF EXAM: Feb 20 2022 7:06PM WOX 5337 - XR FOOT 3V AP/LAT/OBL RT / PROCEDURE REASON: Foot pain, right * * * * Physician Interpretation * * * * RIGHT ANKLE, 3 VIEWS, 02/20/2022 RIGHT FOOT, 3 VIEWS, 02/20/2022 HISTORY: Right ankle and right foot pain. COMPARISON: None TECHNIQUE: Right ankle: Upright AP, lateral, and internal oblique views. The left ankle was included for comparison in the AP projection. Right foot: Standing AP and lateral views. The left foot was included for comparison in the AP projection. Oblique view also of the right foot. RESULTS: RIGHT ANKLE: The bones appear intact and normally aligned. There is no widening of the ankle mortise. There are no underlying bone lesions. The joint spaces appear normal. There are no soft tissue calcifications. The left ankle appears normal and the comparison AP projection. RIGHT FOOT: The bones appear intact. Alignment is normal. There are no underlying bone or joint abnormalities. There is minimal posterior calcaneal enthesophyte. There are no soft tissue calcifications or radiopaque foreign bodies. The left foot appears normal on the comparison AP projection. IMPRESSION IMPRESSION: RIGHT ANKLE: Within normal limits. No bone or joint abnormalities seen. RIGHT FOOT: Within normal limits. No acute findings. Fisher Purse Seine: SILVIANO Transcribe Date/Time: Feb 20 2022 7:11P Dictated by : ISAIAS SMYTH MD This examination was interpreted and the report reviewed and electronically signed by: ISAIAS SMYTH MD on Feb 20 2022 7:15PM [facility] XR Toes - right 3 Viewson IMPRESSION: No acute process. Fisher Purse Seine: [facility] Transcribe Date/Time: Jul 12 2021 3:51P Dictated by : OTILIA DAMON MD This examination was interpreted and the report reviewed and electronically signed by: OTILIA DAMON MD on Jul 12 2021 3:54PM [facility] DIVISION OF RADIOLOGY * * *Final Report* * * DATE OF EXAM: Jul 12 2021 3:49PM WOX 5269 - XR TOE 3V AP/LAT/OBL RT / PROCEDURE REASON: Injury of toe on right foot, initial encounter * * * * Physician Interpretation * * * * EXAMINATION: XR TOE 3V AP/LAT/OBL RT HISTORY: numbness to third toe after work injury. Injury of toe on right foot, initial encounter. TECHNIQUE: XR TOE 3V AP/LAT/OBL RT Laterality: RIGHT Number of different views (projections): 3 M: XB_1 COMPARISON: There are no prior relevant studies for comparison. RESULT: 3 views of the right third toe show no acute osseous, articular or soft tissue abnormality. DIVISION OF RADIOLOGY Provider, [facility] - 07/12/2021 * * *Final Report* * * DATE OF EXAM: Jul 12 2021 3:49PM WOX 5269 - XR TOE 3V AP/LAT/OBL RT / PROCEDURE REASON: Injury of toe on right foot, initial encounter * * * * Physician Interpretation * * * * EXAMINATION: XR TOE 3V AP/LAT/OBL RT HISTORY: numbness to third toe after work injury. Injury of toe on right foot, initial encounter. TECHNIQUE: XR TOE 3V AP/LAT/OBL RT Laterality: RIGHT Number of different views (projections): 3 M: XB_1 COMPARISON: There are no prior relevant studies for comparison. RESULT: 3 views of the right third toe show no acute osseous, articular or soft tissue abnormality. IMPRESSION IMPRESSION: No acute process. Fisher Purse Seine: SILVIANO Transcribe Date/Time: Jul 12 2021 3:51P Dictated by : OTILIA DAMON MD This examination was interpreted and the report reviewed and electronically signed by: OTILIA DAMON MD on Jul 12 2021 3:54PM EST [facility] Radiology Study observation (narrative) [facility] XR Toes - right 3 ViewsOrder ed By: Ccf Provider on 07-12-2021 [facility] XR ANKLE LEFT 3 [facility] 021 XR ANKLE LEFT 3 [place] [address] Radiology PATIENT NAME: Katie Forde MR#: [id number] PROCEDURE DATE: 04/18/2021 ROOM#: ORDERING PHYS: Gerri Bernal MD Clinical history status post trauma pain. Left Ankle 3 Views There is no acute displaced fracture, dislocation or destructive process. The visualized joint space appears unremarkable. No focal soft tissue abnormality. IMPRESSION: Negative study as described. This note is generated using voice recognition computer software. Inadverent errors may have occurred while dictating note. Common sense approach is appreciated. THIS IS AN ELECTRONICALLY VERIFIED REPORT 04/19/2021 5:47 AM: MD Julia Suarez MD dd TD: 04/19/2021 JOB #: [id number] Radiology Page 1 of 1 COPY Normal [facility] XR FOOT LEFT 3VW OR MOREon 1 XR FOOT LEFT 3VW OR MORE [facility] [address] [place] [address] Radiology PATIENT NAME: Katie Forde MR#: [id number] PROCEDURE DATE: 04/18/2021 ROOM#: ORDERING PHYS: Gerri Bernal MD Clinical history pain status post strain injury. Left foot 3 Views There is no acute displaced fracture, dislocation or destructive process. The visualized joint space appears unremarkable. No focal soft tissue abnormality. IMPRESSION: Negative study. This note is generated using voice recognition computer software. Inadverent errors may have occurred while dictating note. Common sense approach is appreciated. THIS IS AN ELECTRONICALLY VERIFIED REPORT 04/19/2021 5:46 AM: MD Julia Suarez MD dd TD: 04/19/2021 JOB #: [id number] Radiology Page 1 of 1 COPY Normal [facility] URINE CULTUREon 04-12-2021 Bacteria identified Cx Nom (U) COLONY COUNT: 10-100K cfu/ml Escherichia coli. [id number] coliSCTesccolEscherichia coli [ S = SUSCEPTIBLE R = RESISTANT I = INTERMEDIATE ] [Susceptibility] by Minimum inhibitory concentration (NILS) - ORGANISM ID: 1 - ANTIBIOTIC INTERPRETATION NILS - Nitrofurantoin S <= 16 Ciprofloxacin S <= 0.06 Cefazolin S <= 4 Trimethoprim/Sulfa S <= 20 Ceftriaxone S <= 0.25 Amoxicillin/CA S 8 Levofloxacin S <= 0.12 Cefepime S <= 0.12 Ampicillin/Sulbactam R >= 32 Meropenem S <= 0.25 Imipenem S <= 0.25 Normal [facility] Comment on above: Performed By: #### L [id number], [id number] #### [place] [address] CBCon 04-10-2021 Basophil Abs. 0.2 10*3/uL High 0.0-0.1 [facility] Comment on above: Performed By: #### L [id number] #### [place] [address] Basophils/100 WBC (Bld) 1.2 % High 0.0-1.0 [facility] Comment on above: Performed By: #### L [id number] #### [place] [address] Differential type Auto Normal [facility] Comment on above: Performed By: #### L [id number] #### [place] [address] Eosinophils (Bld) [#/Vol] 0.2 10*3/uL Normal 0.0-0.5 [facility] Comment on above: Performed By: #### L [id number] #### [place] [address] Eosinophils/100 WBC (Bld) 1.1 % Normal 0.3-5.0 [facility] Comment on above: Performed By: #### L [id number] #### [place] [address] Erythrocyte distribution width (RBC) [Ratio] 13.2 % High 11.5-13.1 [facility] Comment on above: Performed By: #### L [id number] #### [facility] [address] [place], [place] Hematocrit (Bld) [Volume fraction] 40.3 % Normal 33.0-51.0 [facility] Comment on above: Performed By: #### L [id number] #### [facility] [address] [place], [place] Hemoglobin (Bld) [Mass/Vol] 13.4 g/dL Normal 12.0-16.0 [facility] Comment on above: Performed By: #### L [id number] #### [facility] [address] [place], [place] Lymphocytes (Bld) [#/Vol] 3.9 10*3/uL Normal 1.1-5.0 [facility] Comment on above: Performed By: #### L [id number] #### [facility] [address] [place], [place] Lymphocytes/100 WBC (Bld) 27.8 % Normal 24.0-44.0 [facility] Comment on above: Performed By: #### L [id number] #### [facility] [address] [place], [place] MCH (RBC) [Entitic mass] 31.0 pg Normal 26.0-34.0 [facility] Comment on above: Performed By: #### L [id number] #### [facility] [address] [place], [place] MCHC (RBC) [Mass/Vol] 33.1 g/dL Normal 32.0-36.0 [facility] Comment on above: Performed By: #### L [id number] #### [facility] [address] [place], [place] MCV (RBC) [Entitic vol] 93.6 fL Normal 80.0-100.0 [facility] Comment on above: Performed By: #### L [id number] #### [facility] [address] [place], [place] Monocytes (Bld) [#/Vol] 1.0 10*3/uL Normal 0.0-1.4 [facility] Comment on above: Performed By: #### L [id number] #### [facility] [address] [place], [place] Monocytes/100 WBC (Bld) 6.8 % Normal 2.1-13.3 [facility] Comment on above: Performed By: #### L [id number] #### [facility] [address] [place], [place] Neutrophils, Abs. 8.9 10*3/uL High 1.5-8.5 [facility] Comment on above: Performed By: #### L [id number] #### [facility] [address] [place], [place] Neutrophils/100 WBC (Bld) 63.1 % Normal 35.0-66.0 [facility] Comment on above: Performed By: #### L [id number] #### [facility] [address] [place], [place] Platelet Cnt 442 10*3/uL Normal 150-450 [facility] Comment on above: Performed By: #### L [id number] #### [facility] [address] [place], [place] Platelet mean volume (Bld) [Entitic vol] 8.0 fL Normal 6.5-10.0 [facility] Comment on above: Performed By: #### L [id number] #### [facility] [address] [place], [place] RBC (Bld) [#/Vol] 4.31 10*6/uL Normal 4.00-5.20 [facility] Comment on above: Performed By: #### L [id number] #### [facility] [address] [place], [place] WBC (Bld) [#/Vol] 14.1 10*3/uL High 4.5-11.0 [facility] Comment on above: Performed By: #### L [id number] #### [facility] [address] [place], [place] UA w/ Culture reflexon 04-10 UR BACTERIA None Seen Normal NONE SEEN [facility] Comment on above: Performed By: #### L [id number], [id number] #### [facility] [address] [place] [address] UR BILIRUBIN Negative Normal NEGATIVE [facility] Comment on above: Performed By: #### L [id number], [id number] #### [facility] [address] [place] [address] UR BLOOD 2 + mg/dL Abnormal NEGATIVE [facility] Comment on above: Performed By: #### L [id number], [id number] #### [facility] [address] [place] [address] UR CLARITY Clear Normal CLEAR [facility] Comment on above: Performed By: #### L [id number], [id number] #### [facility] [address] [place] [address] UR COLOR Light-Yellow Normal YELLOW [facility] Comment on above: Performed By: #### L [id number], [id number] #### [facility] [address] [place] [address] UR GLUCOSE Normal Normal NEGATIVE [facility] Comment on above: Performed By: #### L [id number], [id number] #### [facility] [address] [place] [address] UR KETONE Negative Normal NEGATIVE [facility] Comment on above: Performed By: #### L [id number], [id number] #### [facility] [address] [place] [address] UR LEUKOCYTE Negative Normal NEGATIVE [facility] Comment on above: Performed By: #### L [id number], [id number] #### [facility] [address] [place] [address] UR MUCOUS Rare Normal NONE SEEN [facility] Comment on above: Performed By: #### L [id number], [id number] #### [facility] [address] [place] [address] UR NITRITE Negative Normal NEGATIVE [facility] Comment on above: Performed By: #### L [id number], [id number] #### [facility] [address] [place] [address] UR NON-SQUAMOUS EPI < 1 Normal NONE SEEN [facility] Comment on above: Performed By: #### L [id number], [id number] #### [facility] [address] [place] [address] UR PH 8.0 Normal 5.0-9.0 [facility] Comment on above: Performed By: #### L [id number], [id number] #### [facility] [address] [place] [address] UR PROTEIN Negative Normal NEGATIVE [facility] Comment on above: Performed By: #### L [id number], [id number] #### [facility] [address] [place] [address] UR RBC 4 - 5 Normal 1-3 [facility] Comment on above: Performed By: #### L [id number], [id number] #### [facility] [address] [place] [address] UR SP GRAVITY 1.018 Normal 1.005-1.030 [facility] Comment on above: Performed By: #### L [id number], [id number] #### [facility] [address] [place] [address] UR SQUAMOUS EPI 1 - 3 Normal 3-5 [facility] Comment on above: Performed By: #### L [id number], [id number] #### [facility] [address] [place] [address] UR UROBILINOGEN Normal Normal <2.0 [facility] Comment on above: Performed By: #### L [id number], [id number] #### [facility] [address] [place] [address] UR WBC 11 - 20 Abnormal 1-3 [facility] Comment on above: Performed By: #### L [id number], [id number] #### [facility] [address] [place] [address] SARS-CoV, QL, PCRon 04-04-20 21 SARS-CoV, QL, PCR Not detected Normal Undetected [facility] Comment on above: Order Comment: [place] chem Symptomatic?->No Indications (select all that apply)->Asymptomatic - essential worker Was specimen collected by a [facility] steam and power supervisor?->Yes Was this specimen self collected?->No Result Comment: Testing was performed using the [employer] Albert[employer] Direct. Fact sheets for this Emergency Use Authorization (EUA) assay can be found at the following links: For Healthcare Providers: https://www.fda.gov/media/586391/download For Patients: https://www.fda.gov/media/902179/download Test Performed by: 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 PROCEDURES PERFORMED: Pars plana vitrectomy, pars plana lensectomy, endolaser, secondary IOL placement in the left eye. ATTENDING SURGEON: Naeem Sorto MD SIGN CARPENTER: [place] COMPLICATIONS: None. SPECIMENS: None. ESTIMATED BLOOD LOSS: Minimal. ANESTHESIA: MAC with a retrobulbar block. INDICATIONS FOR PROCEDURE: Ms. Forde has a history of prior lens removal and aphakia. After discussing the risks, benefits and alternatives to surgery, she gave her consent for surgery. DETAILS OF THE PROCEDURE: The patient was brought to the operating room where MAC anesthesia was induced. A surgical timeout was performed and all in the room agreed that the left eye was the correct eye for surgery. A retrobulbar block was administered to the left side using a 1:1 solution of 0.75% Marcaine and 4% preservative-free lidocaine. The left eye was prepped and draped in the usual sterile fashion. A 360-degree conjunctival peritomy was performed. a 25-gauge vitrectomy cannula was placed in the inferotemporal quadrant 3 mm posterior to the limbus. The infusion line was placed inside of this cannula and turned on. Markings were made temporally and nasally straddling the 2 markings on either side straddling the 3 and 9 o'clock meridians for sclerotomy sites. These were placed 4 mm apart on each side. The superior davison where a 25-gauge cannula was placed in each of those superior davison, then the inferior davison received a 25-gauge sclerotomy site. No cannula was placed in these locations. A core vitrectomy was performed. Dilute Kenalog was placed to help in visualization of the vitreous gel. A PVD was induced. The vitreous was removed out to the periphery. There was some lattice degeneration noted in the periphery. Some endolaser was already present. Additional endolaser was placed to completely barricade 360 degrees. Attention was then turned to the anterior segment where there [facility] PATIENT NAME: KATIE FORDE [address] [facility] [address] Lino MEDICAL REC #: [id number] [place] [id number] ADMIT DATE: DISCHARGE DATE: OPERATIVE REPORT ATTENDING PHY: Naeem Sorto MD was noted to be a significant amount of lenticular material still present in the capsular bag. This was removed, and the capsular bag was removed. A paracentesis was created superotemporally. Viscoat was introduced into the anterior chamber. The Akreos lens was prepared. Gortex suture was placed through the eyelets on each side. A 3-mm keratome was utilized to create a 3.5-mm keratome incision superotemporally in the clear cornea. The temporal Gortex sutures were passed through this wound and out the temporal sclerotomy sites. Then, the lens was folded and inserted into the eye. The temporal stitches were then passed through the temporal sclerotomy sites. The cannulas superotemporally and superonasally were removed. The Gortex suture was tied, and the knot rotated into the sclera. It was noted to be well centered. A 10-0 nylon stitch was placed to close the corneal wound. An 8-0 Vicryl stitch was utilized to close each of the superotemporal and superonasal sclerotomy sites. Care was taken not to cut the Gortex suture during this step. The inferotemporal cannula containing the infusion line was removed, and this site was also closed with an interrupted 8-0 Vicryl stitch. Then 8-0 Vicryl was used to close the conjunctiva using interrupted stitches. Care was taken to very carefully make sure that the Gortex suture was covered. Subconjunctival Ancef and dexamethasone was given. The eye was at physiologic pressure. No atropine was placed. Maxitrol was placed. A patch and shield were placed. Naeem Sorto MD [id number] SSI File#: [id number] Verified/Reviewed by 11/16/18 Iris POSEY [facility] PATIENT NAME: KATIE FORDE [address] [place] [address] Dr. Lino MEDICAL REC #: [id number] [place] [address] ADMIT DATE: DISCHARGE DATE: OPERATIVE REPORT ATTENDING PHY: Naeem Sorto MD Normal [facility] URINE PREGNANCYon 10-14-2018 HCG.beta subunit ( test) Ql (U) Negative Normal NEGATIVE [facility] Comment on above: Order Comment: Kenrick s: M Performed By: #### L [id number] #### [facility] [address] [place] [address] UR SPEC GRAV 1.015 Normal 1.005-1.030 [facility] Comment on above: Order Comment: Kenrick s: M Performed By: #### L [id number] #### [facility] [address] [place] [address] URINE PREGNANCYon 08-19-2018 HCG.beta subunit ( test) Ql (U) Negative Normal NEGATIVE [facility] Comment on above: Order Comment: Campu s: M Performed By: #### L [id number] #### [facility] [address] [place] [address] UR SPEC GRAV 1.022 Normal 1.005-1.030 [facility] Comment on above: Order Comment: Campu s: M Performed By: #### L [id number] #### [facility] [place] [address] Vital Signs Date Time Vital Sign Value Performing Clinician Facility 11-08-2024 11:35-0400 Body mass index (BMI) [Ratio] 39.38 kg/m2 Sher Darrick [employer] Work Phone: [facility] 11-08-2024 11:35-0400 Body weight 131.7 kg Sher Darrick [employer]CH[employer] Work Phone: [facility] 11-08-2024 11:35-0400 Diastolic blood pressure 60 mm[Hg] Sher Darrick [employer]CH[employer] Work Phone: [facility] 11-08-2024 11:35-0400 Heart rate 101 /min Sher Darrick [employer]CH[employer] Work Phone: [facility] 11-08-2024 11:35-0400 SaO2% (BldA) [Mass fraction] 98 % Sher Darrick [employer] MECH[employer]IC Work Phone: [facility] 11-08-2024 11:35-0400 Systolic blood pressure 102 mm[Hg] Sher Darrick [employer]OVE MECH[employer]IC Work Phone: [facility] 11-02-2024 09:06-0400 Body mass index (BMI) [Ratio] 39.23 kg/m2 Sher Darrick [employer] MECH[employer]IC Work Phone: [facility] 11-02-2024 09:06-0400 Body weight 131.2 kg Sher Darrick [employer]CH[employer]IC Work Phone: [facility] 11-02-2024 09:06-0400 Diastolic blood pressure 70 mm[Hg] Sher Darrick [employer] MECH[employer]IC Work Phone: [facility] 11-02-2024 09:06-0400 Heart rate 93 /min Sher Darrick [employer] MECH[employer]IC Work Phone: [facility] 11-02-2024 09:06-0400 SaO2% (BldA) [Mass fraction] 98 % Sher Darrick [employer] MECH[employer]IC Work Phone: [facility] 11-02-2024 09:06-0400 Systolic blood pressure 100 mm[Hg] Sher Darrick [employer] MECH[employer]IC Work Phone: [facility] 10-26-2024 14:01-0400 Body mass index (BMI) [Ratio] 39.8 kg/m2 Sher Darrick [employer] MECH[employer]IC Work Phone: [facility] 10-26-2024 14:01-0400 Body weight 133.1 kg Sher Darrick [employer] MECH[employer]IC Work Phone: [facility] 10-26-2024 14:01-0400 Diastolic blood pressure 70 mm[Hg] Sher Darrick [employer] MECH[employer]IC Work Phone: [facility] 10-26-2024 14:01-0400 Heart rate 96 /min Sher Darrick [employer] MECH[employer]IC Work Phone: [facility] 10-26-2024 14:01-0400 Respiratory rate 16 /min Sher Darrick [employer] MECH[employer]IC Work Phone: [facility] 10-26-2024 14:01-0400 Systolic blood pressure 116 mm[Hg] Sher Darrick [employer] MECH[employer]IC Work Phone: [facility] 10-25-2024 01:56-0400 Body temperature 97.8 [degF] Dr. Kate Silva MD Work Phone: [facility] 10-25-2024 01:56-0400 Diastolic blood pressure 76 mm[Hg] Dr. Kate Silva MD Work Phone: [facility] 10-25-2024 01:56-0400 Heart rate 98 /min Dr. Kate Silva MD Work Phone: [facility] 10-25-2024 01:56-0400 Respiratory rate 18 /min Dr. Kate Silva MD Work Phone: 8(891)841-420208 [place] [address] 10-25-2024 01:56-0400 SaO2% (BldA) [Mass fraction] 99 % Dr. Kate Silva MD Work Phone: 7(045)415-270689 [place] [address] 10-25-2024 01:56-0400 Systolic blood pressure 123 mm[Hg] Dr. Kate Silva MD Work Phone: 4(434)616-752489 [place] [address] 10-25-2024 00:37-0400 Body height 185.[address] Kate Silva MD Work Phone: 7(247)398-270889 [place] [address] 10-25-2024 00:37-0400 Body mass index (BMI) [Ratio] 38.9 kg/m2 Dr. Kate Silva MD Work Phone: [facility] 10-25-2024 00:37-0400 Body weight [address] Kate Silva MD Work Phone: [facility] 10-20-2024 10:14-0400 Body height 182.9 cm Kate Silva MD Work Phone: [facility] 10-20-2024 10:14-0400 Body mass index (BMI) [Ratio] 40.01 kg/m2 Kate Silva MD Work Phone: [facility] 10-20-2024 10:14-0400 Body temperature 99 [degF] Kate Silva MD Work Phone: [facility] 10-20-2024 10:14-0400 Body weight 133.8 kg Kate Silva MD Work Phone: [facility] 10-20-2024 10:14-0400 Diastolic blood pressure 70 mm[Hg] Kate Silva MD Work Phone: [facility] 10-20-2024 10:14-0400 Heart rate 95 /min Kate Silva MD Work Phone: [facility] 10-20-2024 10:14-0400 Respiratory rate 14 /min Kate Silva MD Work Phone: [facility] 10-20-2024 10:14-0400 SaO2% (BldA) [Mass fraction] 98 % Kate Silva MD Work Phone: [facility] 10-20-2024 10:14-0400 Systolic blood pressure 118 mm[Hg] Kate Silva MD Work Phone: [facility] 10-11-2024 15:48-0400 Body mass index (BMI) [Ratio] 40.28 kg/m2 Gopal Yanez MD Work Phone: [facility] 10-11-2024 15:48-0400 Body temperature 98.29 [degF] Gopal Yanez MD Work Phone: [facility] 10-11-2024 15:48-0400 Body weight 134.72 kg Gopal Yanez MD Work Phone: [facility] 10-11-2024 15:48-0400 Diastolic blood pressure 77 mm[Hg] Gopal Yanez MD Work Phone: [facility] 10-11-2024 15:48-0400 Heart rate 102 /min Gopal Yanez MD Work Phone: [facility] 10-11-2024 15:48-0400 SaO2% (BldA) [Mass fraction] 98 % Gopal Yanez MD Work Phone: [facility] 10-11-2024 15:48-0400 Systolic blood pressure 114 mm[Hg] Gopal Yanez MD Work Phone: [facility] 10-11-2024 09:43-0400 Body mass index (BMI) [Ratio] 39.93 kg/m2 Pat Agata [employer] Work Phone: [facility] 10-11-2024 09:43-0400 Body weight 133.54 kg Pat [place] [employer]OVE MECH[employer]IC Work Phone: [facility] 10-11-2024 09:43-0400 Diastolic blood pressure 66 mm[Hg] Pat [place] [employer]OVE MECHANIC Work Phone: [facility] 10-11-2024 09:43-0400 Systolic blood pressure 100 mm[Hg] Pat Agata [employer] MECH[employer]IC Work Phone: [facility] 10-06-2024 22:24-0400 Body temperature 97.8 [degF] Dr. Kate Silva MD Work Phone: 0(386)[phone] [place] [address] 10-06-2024 22:24-0400 Diastolic blood pressure 72 mm[Hg] Dr. Kate Silva MD Work Phone: [facility] 10-06-2024 22:24-0400 Heart rate 95 /min Dr. Kate Silva MD Work Phone: 6(987)806-235908 [place] [address] 10-06-2024 22:24-0400 Respiratory rate 16 /min Dr. Kate Silva MD Work Phone: 5(116)580-557308 [place] [address] 10-06-2024 22:24-0400 SaO2% (BldA) [Mass fraction] 96 % Dr. Kate Silva MD Work Phone: [facility] 10-06-2024 22:24-0400 Systolic blood pressure 134 mm[Hg] Dr. Kate Silva MD Work Phone: 9(331)664-665208 [place] [address] 10-06-2024 19:45-0400 Body height 185.[address] Kate Silva MD Work Phone: 0(530)330-953608 [place] [address] 10-06-2024 19:45-0400 Body mass index (BMI) [Ratio] 38.9 kg/m2 Dr. Kate Silva MD Work Phone: 0(448)706-404508 [place] [address] 10-06-2024 19:45-0400 Body weight [address] Kate Silva MD Work Phone: [facility] 10-01-2024 10:13-0400 Body mass index (BMI) [Ratio] 39.83 kg/m2 Kate Silva MD Work Phone: [facility] 10-01-2024 10:13-0400 Body weight 133.2 kg Kate Silva MD Work Phone: [facility] 10-01-2024 10:13-0400 Diastolic blood pressure 64 mm[Hg] Kate Silva MD Work Phone: [facility] 10-01-2024 10:13-0400 Heart rate 64 /min Kate Silva MD Work Phone: [facility] 10-01-2024 10:13-0400 Respiratory rate 14 /min Kate Silva MD Work Phone: [facility] 10-01-2024 10:13-0400 Systolic blood pressure 110 mm[Hg] Kate Silva MD Work Phone: [facility] 09-29-2024 21:52-0400 Body temperature 98.7 [degF] Dr. Kate Silva MD Work Phone: [facility] 09-29-2024 21:52-0400 Diastolic blood pressure 66 mm[Hg] Dr. Kate Silva MD Work Phone: [facility] 09-29-2024 21:52-0400 Heart rate 92 /min Dr. Kate Silva MD Work Phone: [facility] 09-29-2024 21:52-0400 Respiratory rate 14 /min Dr. Kate Silva MD Work Phone: [facility] 09-29-2024 21:52-0400 SaO2% (BldA) [Mass fraction] 100 % Dr. Kate Silva MD Work Phone: [facility] 09-29-2024 21:52-0400 Systolic blood pressure 118 mm[Hg] Dr. Kate Silva MD Work Phone: [facility] 09-29-2024 20:09-0400 Body height 185.[address] Kate Silva MD Work Phone: [facility] 09-29-2024 20:09-0400 Body mass index (BMI) [Ratio] 39.3 kg/m2 Dr. Kate Silva MD Work Phone: [facility] 09-29-2024 20:09-0400 Body weight 135.[address] Kate Silva MD Work Phone: [facility] 08-30-2024 13:17-0500 Body height 182.9 cm Santi Mcallister MD Work Phone: [facility] 08-30-2024 13:17-0500 Body mass index (BMI) [Ratio] 40.55 kg/m2 Santi Mcallister MD Work Phone: [facility] 08-30-2024 13:17-0500 Body weight 135.63 kg Santi Mcallister MD Work Phone: [facility] 08-30-2024 13:17-0500 Diastolic blood pressure 74 mm[Hg] Santi Mcallister MD Work Phone: [facility] 08-30-2024 13:17-0500 Heart rate 93 /min Santi Mcallister MD Work Phone: [facility] 08-30-2024 13:17-0500 Respiratory rate 14 /min Santi Mcallister MD Work Phone: [facility] 08-30-2024 13:17-0500 SaO2% (BldA) [Mass fraction] 96 % Santi Mcallister MD Work Phone: [facility] 08-30-2024 13:17-0500 Systolic blood pressure 118 mm[Hg] Santi Mcallister MD Work Phone: [facility] 08-24-2024 10:21-0500 Body mass index (BMI) [Ratio] 40.87 kg/m2 Radha Clutter PA-C Work Phone: [facility] 08-24-2024 10:21-0500 Body temperature 98.01 [degF] Radha Clutter PA-C Work Phone: [facility] 08-24-2024 10:21-0500 Body weight 136.7 kg Radha Clutter PA-C Work Phone: [facility] 08-24-2024 10:21-0500 Diastolic blood pressure 78 mm[Hg] Radha Clutter PA-C Work Phone: [facility] 08-24-2024 10:21-0500 Heart rate 104 /min Radha Clutter PA-C Work Phone: [facility] 08-24-2024 10:21-0500 Respiratory rate 16 /min Radha Clutter PA-C Work Phone: [facility] 08-24-2024 10:21-0500 SaO2% (BldA) [Mass fraction] 97 % Radha Clutter PA-C Work Phone: [facility] 08-24-2024 10:21-0500 Systolic blood pressure 118 mm[Hg] Radha Clutter PA-C Work Phone: [facility] 08-09-2024 10:30-0500 Body mass index (BMI) [Ratio] 40.66 kg/m2 Kate Silva MD Work Phone: [facility] 08-09-2024 10:30-0500 Body weight 136 kg Kate Silva MD Work Phone: [facility] 08-09-2024 10:30-0500 Diastolic blood pressure 61 mm[Hg] Kate Silva MD Work Phone: [facility] 08-09-2024 10:30-0500 Heart rate 86 /min Kate Silva MD Work Phone: [facility] 08-09-2024 10:30-0500 Respiratory rate 16 /min Kate Silva MD Work Phone: [facility] 08-09-2024 10:30-0500 Systolic blood pressure 103 mm[Hg] Kate Silva MD Work Phone: [facility] 05-19-2024 09:54-0500 Body mass index (BMI) [Ratio] 41.14 kg/m2 Arthur Athy PA-C Work Phone: [facility] 05-19-2024 09:54-0500 Body temperature 97.59 [degF] Arthur Athy PA-C Work Phone: [facility] 05-19-2024 09:54-0500 Body weight 137.6 kg Arthur Athy PA-C Work Phone: [facility] 05-19-2024 09:54-0500 Diastolic blood pressure 82 mm[Hg] Arthur Athy PA-C Work Phone: [facility] 05-19-2024 09:54-0500 Heart rate 97 /min Arthur Athy PA-C Work Phone: [facility] 05-19-2024 09:54-0500 Respiratory rate 18 /min Arthur Athy PA-C Work Phone: [facility] 05-19-2024 09:54-0500 SaO2% (BldA) [Mass fraction] 98 % Arthur Athy PA-C Work Phone: [facility] 05-19-2024 09:54-0500 Systolic blood pressure 120 mm[Hg] Arthur Athy PA-C Work Phone: [facility] 05-12-2024 15:59-0500 Body mass index (BMI) [Ratio] 40.85 kg/m2 Rebeca Beasley APRN.CNM Work Phone: [facility] 05-12-2024 15:59-0500 Body weight 136.62 kg Rebeca Beasley APRN.CNM Work Phone: [facility] 05-12-2024 15:59-0500 Diastolic blood pressure 80 mm[Hg] Rebeca Beasley S[employer] LIFTER.CNM Work Phone: [facility] 05-12-2024 15:59-0500 Systolic blood pressure 120 mm[Hg] Rebeca Beasley SACK LIFTER.CNM Work Phone: [facility] 04-30-2024 12:55-0400 Body mass index (BMI) [Ratio] 40.69 kg/m2 Sher Darrick [employer] Work Phone: [facility] 04-30-2024 12:55-0400 Body weight 136.1 kg Sher Darrick [employer] MECH[employer]IC Work Phone: [facility] 04-30-2024 12:55-0400 Diastolic blood pressure 82 mm[Hg] Sher Darrick [employer] MECH[employer]IC Work Phone: [facility] 04-30-2024 12:55-0400 Heart rate 95 /min Sher Darrick [employer]OVE MECHANIC Work Phone: [facility] 04-30-2024 12:55-0400 SaO2% (BldA) [Mass fraction] 99 % Sher Darrick [employer]OVE MECH[employer]IC Work Phone: [facility] 04-30-2024 12:55-0400 Systolic blood pressure 110 mm[Hg] Sher Darrick [employer]OVE MECH[employer]IC Work Phone: [facility] 03-19-2024 10:10-0400 Diastolic blood pressure 88 mm[Hg] Sher Darrick [employer]OVE MECHANIC Work Phone: [facility] 03-19-2024 10:10-0400 Systolic blood pressure 118 mm[Hg] Sher Darrick [employer]OVE MECH[employer]IC Work Phone: [facility] 03-19-2024 10:06-0400 Body mass index (BMI) [Ratio] 41.62 kg/m2 Sher Darrick [employer] MECH[employer]IC Work Phone: [facility] 03-19-2024 10:06-0400 Body weight 139.2 kg Sher Darrick [employer]OVE MECHANIC Work Phone: [facility] 03-19-2024 10:06-0400 Heart rate 103 /min Sher Darrick [employer]IC [employer]OVE MECH[employer]IC Work Phone: [facility] 03-19-2024 10:06-0400 SaO2% (BldA) [Mass fraction] 97 % Sher Darrick [employer]OVE MECH[employer]IC Work Phone: [facility] 03-04-2024 12:42-0400 Body mass index (BMI) [Ratio] 42.45 kg/m2 Pat [place] [employer] MECH[employer]IC Work Phone: [facility] 03-04-2024 12:42-0400 Body weight 141.98 kg Pat Agata [employer] MECH[employer]IC Work Phone: [facility] 03-04-2024 12:42-0400 Diastolic blood pressure 76 mm[Hg] Pat [place] [employer]OVE MECHANIC Work Phone: [facility] 03-04-2024 12:42-0400 Systolic blood pressure 124 mm[Hg] Pat [place] [employer]OVE MECHANIC Work Phone: [facility] 03-02-2024 12:27-0400 Body mass index (BMI) [Ratio] 42.43 kg/m2 Rebeca Russell [employer]CH[employer]IC Work Phone: [facility] 03-02-2024 12:27-0400 Body temperature 98.29 [degF] Rebeca Russell SACK LIFTER.[employer] Work Phone: [facility] 03-02-2024 12:27-0400 Body weight 141.9 kg Rebeca Russell [employer] Work Phone: [facility] 03-02-2024 12:27-0400 Diastolic blood pressure 80 mm[Hg] Rebeca Russell [employer] Work Phone: [facility] 03-02-2024 12:27-0400 Heart rate 106 /min Rebeca Russell [employer] Work Phone: [facility] 03-02-2024 12:27-0400 Respiratory rate 16 /min Rebeca Russell [employer] Work Phone: [facility] 03-02-2024 12:27-0400 SaO2% (BldA) [Mass fraction] 98 % Rebeca Russell [employer]IC Work Phone: [facility] 03-02-2024 12:27-0400 Systolic blood pressure 124 mm[Hg] Rebeca Russell [employer] Work Phone: [facility] 02-10-2024 14:53-0400 Body mass index (BMI) [Ratio] 42.86 kg/m2 Pat Lubbock S[employer] LIFTER.[employer] MECH[employer]IC Work Phone: [facility] 02-10-2024 14:53-0400 Body weight 143.34 kg Pat [place] [employer]TER.E[employer] ME[employer]IC Work Phone: [facility] 02-10-2024 14:53-0400 Diastolic blood pressure 80 mm[Hg] Pat [place] [employer]TER.E[employer] MECH[employer]IC Work Phone: [facility] 02-10-2024 14:53-0400 Systolic blood pressure 120 mm[Hg] Pat Agata [employer] MECH[employer]IC Work Phone: [facility] 01-27-2024 14:04-0400 Body mass index (BMI) [Ratio] 42.99 kg/m2 Sher Darrick [employer] Work Phone: [facility] 01-27-2024 14:04-0400 Body weight 143.79 kg Sher Darrick [employer]IC Work Phone: [facility] 01-27-2024 14:04-0400 Diastolic blood pressure 80 mm[Hg] Sher Darrick [employer] MECH[employer]IC Work Phone: [facility] 01-27-2024 14:04-0400 Heart rate 100 /min Sher Darrick [employer]IC Work Phone: [facility] 01-27-2024 14:04-0400 Respiratory rate 20 /min Sher Darrick [employer].E[employer] MECH[employer]IC Work Phone: [facility] 01-27-2024 14:04-0400 Systolic blood pressure 128 mm[Hg] Sher Darrick [employer].E[employer] MECH[employer]IC Work Phone: [facility] 12-22-2023 16:32-0400 Body mass index (BMI) [Ratio] 43.47 kg/m2 Larry Praisler-Wood [employer]IC Work Phone: [facility] 12-22-2023 16:32-0400 Body temperature 97.39 [degF] Larry Praisler-Wood [employer] MECH[employer]IC Work Phone: [facility] 12-22-2023 16:32-0400 Body weight 145.4 kg Larry Praisler-Wood [employer].E[employer] MECH[employer]IC Work Phone: [facility] 12-22-2023 16:32-0400 Diastolic blood pressure 72 mm[Hg] Larry Praisler-Wood [employer].E[employer] MECH[employer]IC Work Phone: [facility] 12-22-2023 16:32-0400 Heart rate 116 /min Larry Praisler-Wood [employer].E[employer] MECH[employer]IC Work Phone: [facility] 12-22-2023 16:32-0400 Respiratory rate 20 /min Larry Praisler-Wood S[employer].E[employer] MECH[employer]IC Work Phone: [facility] 12-22-2023 16:32-0400 SaO2% (BldA) [Mass fraction] 97 % Larry Praisler-Wood S[employer].E[employer] MECHANIC Work Phone: [facility] 12-22-2023 16:32-0400 Systolic blood pressure 124 mm[Hg] Larry Praisler-Wood S[employer]TER.E[employer] MECH[employer]IC Work Phone: [facility] 12-17-2023 09:22-0400 Body mass index (BMI) [Ratio] 43.18 kg/m2 Dusty Moomaw S[employer] LIFTER.E[employer] MECH[employer]IC Work Phone: [facility] 12-17-2023 09:22-0400 Body temperature 97.9 [degF] Dusty Moomaw [employer] MECH[employer]IC Work Phone: [facility] 12-17-2023 09:22-0400 Body weight 144.43 kg Dusty Moomaw S[employer]IFTER.E[employer]OVE MECH[employer]IC Work Phone: [facility] 12-17-2023 09:22-0400 Diastolic blood pressure 78 mm[Hg] Dusty Moomaw S[employer]IF[employer].E[employer] MECH[employer]IC Work Phone: [facility] 12-17-2023 09:22-0400 Heart rate 107 /min Dusty Moomaw S[employer]IFTER.E[employer]OVE MECH[employer]IC Work Phone: [facility] 12-17-2023 09:22-0400 Respiratory rate 18 /min Dusty Moomaw S[employer]IF[employer].E[employer]OVE MECHANIC Work Phone: [facility] 12-17-2023 09:22-0400 SaO2% (BldA) [Mass fraction] 98 % Dusty Moomaw [employer]IF[employer].E[employer]OVE MECHANIC Work Phone: [facility] 12-17-2023 09:22-0400 Systolic blood pressure 122 mm[Hg] Dusty Moomaw S[employer]IFTER.E[employer]OVE MECHANIC Work Phone: [facility] 12-15-2023 12:58-0400 Body mass index (BMI) [Ratio] 42.72 kg/m2 Sher Darrick [employer].E[employer] MECH[employer]IC Work Phone: [facility] 12-15-2023 12:58-0400 Body weight 142.88 kg Sher Darrick [employer]IF[employer].E[employer]OVE MECH[employer]IC Work Phone: [facility] 12-15-2023 12:58-0400 Diastolic blood pressure 76 mm[Hg] Sher Darrick [employer].E[employer] MECH[employer]IC Work Phone: [facility] 12-15-2023 12:58-0400 Heart rate 102 /min Sher Darrick [employer]IF[employer].E[employer] MECH[employer]IC Work Phone: [facility] 12-15-2023 12:58-0400 Respiratory rate 16 /min Sher Darrick [employer].E[employer]OVE MECH[employer]IC Work Phone: [facility] 12-15-2023 12:58-0400 SaO2% (BldA) [Mass fraction] 97 % Sher Darrick [employer].E[employer]IC [employer]OVE MECHANIC Work Phone: [facility] 12-15-2023 12:58-0400 Systolic blood pressure 128 mm[Hg] Sher Darrick S[employer]IFTER.E[employer]IC [employer]OVE MECHANIC Work Phone: [facility] 12-12-2023 12:46-0400 Body height 182.9 cm Pat Agata [employer] LIF[employer].E[employer]OVE MECH[employer]IC Work Phone: [facility] 12-12-2023 12:46-0400 Body mass index (BMI) [Ratio] 42.56 kg/m2 Pat Agata [employer]IF[employer].E[employer]OVE MECHANIC Work Phone: [facility] 12-12-2023 12:46-0400 Body weight 142.34 kg Pat Agata [employer] LIFTER.E[employer]IC [employer]OVE MECHANIC Work Phone: [facility] 12-12-2023 12:46-0400 Diastolic blood pressure 80 mm[Hg] Pat [place] [employer].E[employer]IC [employer]OVE MECHANIC Work Phone: [facility] 12-12-2023 12:46-0400 Heart rate 104 /min Pat [place] [employer]TER.E[employer]IC [employer]OVE MECHANIC Work Phone: [facility] 12-12-2023 12:46-0400 Respiratory rate 14 /min Pat [place] S[employer]IFTER.E[employer]RIC [employer]OVE MECHANIC Work Phone: [facility] 12-12-2023 12:46-0400 SaO2% (BldA) [Mass fraction] 96 % Pat [place] [employer]IFTER.E[employer]IC [employer]OVE MECHANIC Work Phone: [facility] 12-12-2023 12:46-0400 Systolic blood pressure 122 mm[Hg] Pat Agata [employer]IF[employer].E[employer]IC [employer]OVE MECHANIC Work Phone: [facility] 12-02-2023 12:07-0400 Body mass index (BMI) [Ratio] 42.76 kg/m2 Lucas Snider [employer].E[employer] MECH[employer]IC Work Phone: [facility] 12-02-2023 12:07-0400 Body temperature 98.4 [degF] Lucas Snider [employer]IF[employer].E[employer]OVE MECHANIC Work Phone: [facility] 12-02-2023 12:07-0400 Body weight 143.2 kg Lucas Snider [employer]IFTER.E[employer]OVE MECH[employer]IC Work Phone: [facility] 12-02-2023 12:07-0400 Diastolic blood pressure 78 mm[Hg] Lucas Sndier APRN.ELECT[employer]OVE MECHANIC Work Phone: [facility] 12-02-2023 12:07-0400 Heart rate 70 /min Lucas Snider APRN.E[employer] MECH[employer]IC Work Phone: [facility] 12-02-2023 12:07-0400 Respiratory rate 18 /min Lucas Snider APRN.E[employer] MECH[employer]IC Work Phone: [facility] 12-02-2023 12:07-0400 SaO2% (BldA) [Mass fraction] 100 % Lucas Snider APRN.ELECT[employer] MECHANIC Work Phone: [facility] 12-02-2023 12:07-0400 Systolic blood pressure 118 mm[Hg] Lucas Snider APRN.ELECT[employer] MECHANIC Work Phone: [facility] 10-22-2023 12:58-0400 Body height 182.9 cm Estrellita Kalka PA-C Work Phone: [facility] 10-22-2023 12:58-0400 Body mass index (BMI) [Ratio] 42.68 kg/m2 Estrellita Kalka PA-C Work Phone: [facility] 10-22-2023 12:58-0400 Body weight 142.84 kg Estrellita Kalka PA-C Work Phone: [facility] 10-22-2023 12:58-0400 Diastolic blood pressure 84 mm[Hg] Estrellita Kalka PA-C Work Phone: [facility] 10-22-2023 12:58-0400 Heart rate 108 /min Estrellita Kalka PA-C Work Phone: [facility] 10-22-2023 12:58-0400 Systolic blood pressure 132 mm[Hg] Estrellita Kalka PA-C Work Phone: [facility] 10-09-2023 11:39-0400 Body temperature 98.2 [degF] Aria Walden PA Work Phone: [facility] 10-09-2023 11:39-0400 Body weight 143 kg Krislyn Aberegg PA Work Phone: [facility] 10-09-2023 11:39-0400 Diastolic blood pressure 83 mm[Hg] Krislyn Aberegg PA Work Phone: [facility] 10-09-2023 11:39-0400 Heart rate 105 /min Krislyn Aberegg PA Work Phone: [facility] 10-09-2023 11:39-0400 Respiratory rate 22 /min Krislyn Aberegg PA Work Phone: [facility] 10-09-2023 11:39-0400 SaO2% (BldA) [Mass fraction] 97 % Krislyn Aberegg PA Work Phone: [facility] 10-09-2023 11:39-0400 Systolic blood pressure 133 mm[Hg] Krislyn Aberegg PA Work Phone: [facility] 09-16-2023 11:23-0400 Body height 183.5 cm Kate Silva MD Work Phone: [facility] 09-16-2023 11:23-0400 Body weight 141.52 kg Kate Silva MD Work Phone: [facility] 09-16-2023 11:23-0400 Diastolic blood pressure 66 mm[Hg] Kate Silva MD Work Phone: [facility] 09-16-2023 11:23-0400 Heart rate 91 /min Kate Silva MD Work Phone: [facility] 09-16-2023 11:23-0400 SaO2% (BldA) [Mass fraction] 98 % Kate Silva MD Work Phone: [facility] 09-16-2023 11:23-0400 Systolic blood pressure 102 mm[Hg] Kate Silva MD Work Phone: [facility] 09-11-2023 10:03-0400 Body weight 141.07 kg Pat [place] S[employer]TER.E[employer] MECH[employer]IC Work Phone: [facility] 09-11-2023 10:03-0400 Diastolic blood pressure 86 mm[Hg] Pat [place] [employer]TER.E[employer]IC [employer]OVE MECHANIC Work Phone: [facility] 09-11-2023 10:03-0400 Systolic blood pressure 124 mm[Hg] Pat [place] [employer].E[employer]RIC [employer]OVE MECHANIC Work Phone: [facility] 08-18-2023 12:23-0500 Body temperature 98.6 [degF] Los Barber S[employer] LIFTER.E[employer]OVE MECHANIC Work Phone: [facility] 08-18-2023 12:23-0500 Body weight 140.8 kg Los Barber [employer] LIFTER.E[employer]IC [employer]OVE MECHANIC Work Phone: [facility] 08-18-2023 12:23-0500 Diastolic blood pressure 80 mm[Hg] Los Barber S[employer] LIFTER.E[employer]RIC [employer]OVE MECHANIC Work Phone: [facility] 08-18-2023 12:23-0500 Heart rate 115 /min Los Barber [employer]IFTER.E[employer]IC [employer]OVE MECHANIC Work Phone: [facility] 08-18-2023 12:23-0500 Respiratory rate 21 /min Los Barber S[employer] LIFTER.E[employer]RIC [employer]OVE MECHANIC Work Phone: [facility] 08-18-2023 12:23-0500 SaO2% (BldA) [Mass fraction] 98 % Los Barber [employer] LIFTER.E[employer]RIC [employer]OVE MECHANIC Work Phone: [facility] 08-18-2023 12:23-0500 Systolic blood pressure 110 mm[Hg] Ols Barber S[employer] LIFTER.E[employer]RIC [employer]OVE MECHANIC Work Phone: [facility] 08-11-2023 12:08-0500 Body temperature 97.81 [degF] Los Barber [employer].E[employer]IC [employer]OVE MECHANIC Work Phone: [facility] 08-11-2023 12:08-0500 Body weight 140.71 kg Los Barber [employer]IFTER.E[employer]OVE MECHANIC Work Phone: [facility] 02-12-2024 12:08-0500 Diastolic blood pressure 80 mm[Hg] Los Barber [employer]TER.E[employer]IC [employer] MECHANIC Work Phone: [facility] 08-11-2023 12:08-0500 Heart rate 88 /min Los Barber [employer]IFTER.E[employer]IC [employer]OVE MECHANIC Work Phone: [facility] 08-11-2023 12:08-0500 Respiratory rate 21 /min Los Barber [employer]IFTER.E[employer]RIC [employer]OVE MECHANIC Work Phone: [facility] 08-11-2023 12:08-0500 SaO2% (BldA) [Mass fraction] 97 % Los Barber [employer]TER.E[employer]OVE MECHANIC Work Phone: [facility] 08-11-2023 12:08-0500 Systolic blood pressure 110 mm[Hg] Los Barber [employer] LIFTER.E[employer]RIC [employer]OVE MECHANIC Work Phone: [facility] 08-11-2023 10:48-0500 Body weight 140.89 kg Nicolle Hopson MD Work Phone: [facility] 06-06-2023 15:44-0500 Body height 183.5 cm Kate Silva MD Work Phone: [facility] 06-06-2023 15:44-0500 Body temperature 97.5 [degF] Kate Silva MD Work Phone: [facility] 06-06-2023 15:44-0500 Body weight 138.35 kg Kate Silva MD Work Phone: [facility] 06-06-2023 15:44-0500 Diastolic blood pressure 72 mm[Hg] Kate Silva MD Work Phone: [facility] 06-06-2023 15:44-0500 Heart rate 108 /min Kate Silva MD Work Phone: [facility] 06-06-2023 15:44-0500 Respiratory rate 18 /min Kate Silva MD Work Phone: [facility] 06-06-2023 15:44-0500 SaO2% (BldA) [Mass fraction] 99 % Kate Silva MD Work Phone: [facility] 06-06-2023 15:44-0500 Systolic blood pressure 112 mm[Hg] Kate Silva MD Work Phone: [facility] 05-14-2023 11:22-0500 Body temperature 98.2 [degF] Lucas Snider APRN.E[employer] MECH[employer]IC Work Phone: [facility] 05-14-2023 11:22-0500 Body weight 138.53 kg Lucas Snider APRN.ELECTRIC [employer]OVE MECHANIC Work Phone: [facility] 05-14-2023 11:22-0500 Diastolic blood pressure 68 mm[Hg] Lucas Snider APRN.ELECTRIC [employer]OVE MECHANIC Work Phone: [facility] 05-14-2023 11:22-0500 Heart rate 103 /min Lucas Snider APRN.ELECTRIC [employer]OVE MECHANIC Work Phone: [facility] 05-14-2023 11:22-0500 Respiratory rate 16 /min Lucas Snider APRN.ELECTRIC [employer]OVE MECHANIC Work Phone: [facility] 05-14-2023 11:22-0500 SaO2% (BldA) [Mass fraction] 98 % Lucas Snider APRN.ELECTRIC [employer]OVE MECHANIC Work Phone: [facility] 05-14-2023 11:22-0500 Systolic blood pressure 118 mm[Hg] Lucas Snider APRN.ELECTRIC [employer]OVE MECHANIC Work Phone: [facility] 04-22-2023 10:11-0400 Body height 188 cm Zuleika Avalos PA-C Work Phone: [facility] 04-22-2023 10:11-0400 Body weight 138.94 kg Zuleika Avalos PA-C Work Phone: [facility] 04-22-2023 10:11-0400 Diastolic blood pressure 74 mm[Hg] Zuleika Avalos PA-C Work Phone: [facility] 04-22-2023 10:11-0400 Heart rate 102 /min Zuleika Avalos PA-C Work Phone: [facility] 04-22-2023 10:11-0400 Systolic blood pressure 112 mm[Hg] Zuleika Avalos PA-C Work Phone: [facility] 04-09-2023 13:37-0400 Body weight 138.53 kg Kelly Plotts S[employer] LIFTER.CNM Work Phone: [facility] 04-09-2023 13:37-0400 Diastolic blood pressure 80 mm[Hg] Kelly Plotts S[employer] LIFTER.CNM Work Phone: [facility] 04-09-2023 13:37-0400 Systolic blood pressure 118 mm[Hg] Kelly Plotts S[employer]IFTER.CNM Work Phone: [facility] 03-20-2023 11:10-0400 Body temperature 97.59 [degF] Keeley Maycol S[employer]IFTER.E[employer] MECHANIC Work Phone: [facility] 03-20-2023 11:10-0400 Body weight 135.44 kg Keeley Maycol S[employer]IFTER.ELECTRIC [employer]OVE MECHANIC Work Phone: [facility] 03-20-2023 11:10-0400 Diastolic blood pressure 76 mm[Hg] Keeley Maycol S[employer] LIFTER.ELECTRIC [employer]OVE MECHANIC Work Phone: [facility] 03-20-2023 11:10-0400 Heart rate 102 /min Keeley Maycol S[employer]IFTER.ELECTRIC [employer]OVE MECHANIC Work Phone: [facility] 03-20-2023 11:10-0400 Respiratory rate 18 /min Keeley Maycol S[employer]IFTER.ELECTRIC [employer]OVE MECHANIC Work Phone: [facility] 03-20-2023 11:10-0400 SaO2% (BldA) [Mass fraction] 96 % Keeley Maycol S[employer]IFTER.ELECTRIC [employer]OVE MECHANIC Work Phone: [facility] 03-20-2023 11:10-0400 Systolic blood pressure 102 mm[Hg] Keeley Maycol S[employer] LIFTER.ELECTRIC [employer]OVE MECHANIC Work Phone: [facility] 01-28-2023 14:02-0400 Diastolic blood pressure 75 mm[Hg] 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 S[employer] LIFTER.[employer]TER Work Phone: [facility] 01-28-2023 14:02-0400 Heart rate 112 /min 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 S[employer]IFTER.[employer] Work Phone: [facility] 01-28-2023 14:02-0400 Systolic blood pressure 111 mm[Hg] 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 S[employer] LIFTER.[employer] Work Phone: [facility] 01-28-2023 13:48-0400 Body temperature 98.6 [degF] 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 S[employer] LIFTER.[employer] Work Phone: [facility] 01-28-2023 13:48-0400 Body weight 135.17 kg 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 S[employer] LIFTER.[employer] Work Phone: [facility] 01-28-2023 13:48-0400 Respiratory rate 18 /min 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 S[employer] LIFTER.[employer]ER[employer] Work Phone: [facility] 01-28-2023 13:48-0400 SaO2% (BldA) [Mass fraction] 98 % 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 S[employer]IFTER.[employer] Work Phone: [facility] 01-13-2023 14:14-0400 Body temperature 96.69 [degF] Gopal Yanez MD Work Phone: [facility] 01-13-2023 14:14-0400 Body weight 134.72 kg Gopal Yanez MD Work Phone: [facility] 01-13-2023 14:14-0400 Diastolic blood pressure 76 mm[Hg] Gopal Yanez MD Work Phone: [facility] 01-13-2023 14:14-0400 Heart rate 77 /min Gopal Yanez MD Work Phone: [facility] 01-13-2023 14:14-0400 SaO2% (BldA) [Mass fraction] 97 % Gopal Yanez MD Work Phone: [facility] 01-13-2023 14:14-0400 Systolic blood pressure 119 mm[Hg] Gopal Yanez MD Work Phone: [facility] 01-10-2023 11:50-0400 Body temperature 98.29 [degF] Krislyn Aberegg PA Work Phone: [facility] 01-10-2023 11:50-0400 Body weight 133.99 kg Krislyn Aberegg PA Work Phone: [facility] 01-10-2023 11:50-0400 Diastolic blood pressure 64 mm[Hg] Krislyn Aberegg PA Work Phone: [facility] 01-10-2023 11:50-0400 Heart rate 93 /min Krislyn Aberegg PA Work Phone: [facility] 01-10-2023 11:50-0400 Respiratory rate 18 /min Krislyn Aberegg PA Work Phone: [facility] 01-10-2023 11:50-0400 SaO2% (BldA) [Mass fraction] 96 % Krislyn Aberegg PA Work Phone: [facility] 01-10-2023 11:50-0400 Systolic blood pressure 92 mm[Hg] Krislyn Aberegg PA Work Phone: [facility] 12-24-2022 14:43-0400 Body height 188 cm Larry Praisler-Wood S[employer]IFTER.E[employer]OVE MECHANIC Work Phone: [facility] 12-24-2022 14:43-0400 Body temperature 98.91 [degF] Larry Praisler-Wood S[employer]IFTER.ELECTRIC [employer]OVE MECHANIC Work Phone: [facility] 12-24-2022 14:43-0400 Body weight 134.72 kg Larry Praisler-Wood S[employer] LIFTER.ELECTRIC [employer]OVE MECHANIC Work Phone: [facility] 12-24-2022 14:43-0400 Diastolic blood pressure 70 mm[Hg] Larry Praisler-Wood S[employer]IFTER.ELECTRIC [employer]OVE MECHANIC Work Phone: [facility] 12-24-2022 14:43-0400 Heart rate 99 /min Larry Praisler-Wood S[employer]IFTER.ELECTRIC [employer]OVE MECHANIC Work Phone: [facility] 12-24-2022 14:43-0400 Respiratory rate 16 /min Larry Praisler-Wood S[employer]IFTER.ELECTRIC [employer]OVE MECHANIC Work Phone: [facility] 12-24-2022 14:43-0400 SaO2% (BldA) [Mass fraction] 97 % Larry Praisler-Wood S[employer]IFTER.ELECTRIC [employer]OVE MECHANIC Work Phone: [facility] 12-24-2022 14:43-0400 Systolic blood pressure 98 mm[Hg] Larry Praisler-Wood S[employer] LIFTER.ELECTRIC [employer]OVE MECHANIC Work Phone: [facility] 11-05-2022 11:31-0400 Body height 182.9 cm Pulm Wstr Work Phone: [facility] 11-05-2022 11:31-0400 Body weight 131.09 kg Pulm Wstr Work Phone: [facility] 11-05-2022 11:31-0400 Heart rate 105 /min Pulm Wstr Work Phone: [facility] 11-05-2022 11:31-0400 Respiratory rate 14 /min Pulm Wstr Work Phone: [facility] 11-05-2022 11:31-0400 SaO2% (BldA) [Mass fraction] 100 % Pulm Wstr Work Phone: [facility] 11-04-2022 12:41-0400 Body temperature 98.4 [degF] Rebeca Russell S[employer]IFTER.E[employer]RIC [employer]OVE MECHANIC Work Phone: [facility] 11-04-2022 12:41-0400 Body weight 131.72 kg Rebeca Russell S[employer] LIFTER.ELECTRIC [employer]OVE MECHANIC Work Phone: [facility] 11-04-2022 12:41-0400 Diastolic blood pressure 86 mm[Hg] Rebeca Russell S[employer] LIFTER.ELECTRIC [employer]OVE MECHANIC Work Phone: [facility] 11-04-2022 12:41-0400 Heart rate 89 /min Rebeca Russell S[employer] LIFTER.ELECTRIC [employer]OVE MECHANIC Work Phone: [facility] 11-04-2022 12:41-0400 Respiratory rate 21 /min Rebeca Russell S[employer]IFTER.ELECTRIC [employer]OVE MECHANIC Work Phone: [facility] 11-04-2022 12:41-0400 SaO2% (BldA) [Mass fraction] 98 % Rebeca Russell S[employer]IFTER.ELECTRIC [employer]OVE MECHANIC Work Phone: [facility] 11-04-2022 12:41-0400 Systolic blood pressure 120 mm[Hg] Rebeca Russell S[employer] LIFTER.ELECTRIC [employer]OVE MECHANIC Work Phone: [facility] 10-28-2022 13:05-0400 Body height 181 cm 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 S[employer] LIFTER.[employer] Work Phone: [facility] 10-28-2022 13:05-0400 Body weight 132 kg 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 S[employer] LIFTER.[employer] Work Phone: [facility] 10-28-2022 13:05-0400 Diastolic blood pressure 82 mm[Hg] 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 S[employer] LIFTER.[employer] Work Phone: [facility] 10-28-2022 13:05-0400 Heart rate 105 /min 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 S[employer] LIFTER.[employer] Work Phone: [facility] 10-28-2022 13:05-0400 Respiratory rate 16 /min 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 S[employer] LIFTER.[employer] Work Phone: [facility] 10-28-2022 13:05-0400 SaO2% (BldA) [Mass fraction] 100 % 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 S[employer] LIFTER.[employer] Work Phone: [facility] 10-28-2022 13:05-0400 Systolic blood pressure 118 mm[Hg] 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 S[employer] LIFTER.[employer] Work Phone: [facility] 09-30-2022 [id number] Body height 181.6 cm Santi Mcallister MD Work Phone: [facility] 09-30-2022 10:040 Body weight 132.45 kg Santi Mcallister MD Work Phone: [facility] 09-30-2022 10:21-0400 Diastolic blood pressure 80 mm[Hg] Santi Mcallister MD Work Phone: [facility] 09-30-2022 10:21-0400 Heart rate 87 /min Santi Mcallister MD Work Phone: [facility] 09-30-2022 10:21-0400 SaO2% (BldA) [Mass fraction] 99 % Santi Mcallister MD Work Phone: [facility] 09-30-2022 10:21-0400 Systolic blood pressure 110 mm[Hg] Santi Mcallister MD Work Phone: [facility] 09-06-2022 13:07-0500 Body temperature 97.59 [degF] Hailey Jett MD Work Phone: [facility] 09-06-2022 13:07-0500 Body weight 131.54 kg Hailey Jett MD Work Phone: [facility] 09-06-2022 13:07-0500 Diastolic blood pressure 82 mm[Hg] Hailey Jett MD Work Phone: [facility] 09-06-2022 13:07-0500 Heart rate 93 /min Hailey Jett MD Work Phone: [facility] 09-06-2022 13:07-0500 SaO2% (BldA) [Mass fraction] 98 % Hailey Jett MD Work Phone: [facility] 09-06-2022 13:07-0500 Systolic blood pressure 120 mm[Hg] Hailey Jett MD Work Phone: [facility] 09-05-2022 11:05-0500 Body temperature 98.91 [degF] Krislyn Aberegg PA Work Phone: [facility] 09-05-2022 11:05-0500 Body weight 131.36 kg Krislyn Aberegg PA Work Phone: [facility] 09-05-2022 11:05-0500 Diastolic blood pressure 66 mm[Hg] Krislyn Aberegg PA Work Phone: [facility] 09-05-2022 11:05-0500 Heart rate 104 /min Krislyn Aberegg PA Work Phone: [facility] 09-05-2022 11:05-0500 Respiratory rate 18 /min Krislyn Aberegg PA Work Phone: [facility] 09-05-2022 11:05-0500 SaO2% (BldA) [Mass fraction] 98 % Krislyn Aberegg PA Work Phone: [facility] 09-05-2022 11:05-0500 Systolic blood pressure 118 mm[Hg] Krislyn Aberegg PA Work Phone: [facility] 08-22-2022 14:47-0500 Body height 181.6 cm Russell Masci DO Work Phone: [facility] 08-22-2022 14:47-0500 Body temperature 97 [degF] Russell Masci DO Work Phone: [facility] 08-22-2022 14:47-0500 Body weight 130.18 kg Russell Masci DO Work Phone: [facility] 08-22-2022 14:47-0500 Diastolic blood pressure 74 mm[Hg] Russell Masci DO Work Phone: [facility] 08-22-2022 14:47-0500 Heart rate 98 /min Russell Masci DO Work Phone: [facility] 08-22-2022 14:47-0500 SaO2% (BldA) [Mass fraction] 96 % Russell Masci DO Work Phone: [facility] 08-22-2022 14:47-0500 Systolic blood pressure 124 mm[Hg] Russell Masci DO Work Phone: [facility] 08-07-2022 12:58-0500 Body height 180.3 cm Zuleika Perez PA-C Work Phone: [facility] 08-07-2022 12:58-0500 Body weight 132 kg Zuleika Chris PA-C Work Phone: [facility] 08-07-2022 12:58-0500 Diastolic blood pressure 76 mm[Hg] Zuleika Chris PA-C Work Phone: [facility] 08-07-2022 12:58-0500 Heart rate 101 /min Zuleika Chris PA-C Work Phone: [facility] 08-07-2022 12:58-0500 Systolic blood pressure 122 mm[Hg] Zuleika Chris PA-C Work Phone: [facility] 07-09-2022 13:21-0500 Body temperature 98.4 [degF] Arthur Athy PA-C Work Phone: [facility] 07-09-2022 13:21-0500 Body weight 130.05 kg Arthur Athy PA-C Work Phone: [facility] 07-09-2022 13:21-0500 Diastolic blood pressure 72 mm[Hg] Arthur Athy PA-C Work Phone: [facility] 07-09-2022 13:21-0500 Heart rate 115 /min Arthur Athy PA-C Work Phone: [facility] 07-09-2022 13:21-0500 Respiratory rate 18 /min Arthur Athy PA-C Work Phone: [facility] 07-09-2022 13:21-0500 SaO2% (BldA) [Mass fraction] 98 % Arthur Athy PA-C Work Phone: [facility] 07-09-2022 13:21-0500 Systolic blood pressure 124 mm[Hg] Arthur Athy PA-C Work Phone: [facility] 07-05-2022 13:15-0500 SaO2% (BldA) [Mass fraction] 96 % Mirna Hayes MD Work Phone: [facility] 07-05-2022 13:00-0500 Diastolic blood pressure 75 mm[Hg] Mirna Hayes MD Work Phone: [facility] 07-05-2022 13:00-0500 Systolic blood pressure 115 mm[Hg] Mirna Hayes MD Work Phone: [facility] 07-05-2022 11:25-0500 Heart rate 80 /min Mirna Hayes MD Work Phone: [facility] 07-05-2022 11:17-0500 Respiratory rate 12 /min Mirna Hayes MD Work Phone: [facility] 07-05-2022 10:21-0500 Body temperature 96.8 [degF] Mirna Hayes MD Work Phone: [facility] 06-11-2022 13:09-0500 Body temperature 98.71 [degF] Antonio Smalls MD Work Phone: [facility] 06-11-2022 13:09-0500 Body weight 130.82 kg Antonio Smalls MD Work Phone: [facility] 06-11-2022 13:09-0500 Heart rate 96 /min Antonio Smalls MD Work Phone: [facility] 06-11-2022 13:09-0500 Respiratory rate 18 /min Antonio Smalls MD Work Phone: [facility] 06-11-2022 13:09-0500 SaO2% (BldA) [Mass fraction] 98 % Antonio Smalls MD Work Phone: [facility] 05-30-2022 11:12-0500 Body weight 131.09 kg Suyapa Recinos MD Work Phone: [facility] 05-30-2022 11:12-0500 Diastolic blood pressure 78 mm[Hg] Suyapa Recinos MD Work Phone: [facility] 05-30-2022 11:12-0500 Systolic blood pressure 116 mm[Hg] Suyapa Recinos MD Work Phone: [facility] 05-07-2022 13:33-0500 Body height 180.3 cm Annia Hogan [employer] Work Phone: [facility] 05-07-2022 13:33-0500 Body weight 132 kg Annia Hogan [employer]IFTER.[employer] MECH[employer] Work Phone: [facility] 05-07-2022 13:33-0500 Diastolic blood pressure 82 mm[Hg] Annia Hogan [employer] Work Phone: [facility] 05-07-2022 13:33-0500 Heart rate 93 /min Annia Hogan [employer] Work Phone: [facility] 05-07-2022 13:33-0500 Systolic blood pressure 118 mm[Hg] Annia Hogan [employer]CH[employer]IC Work Phone: [facility] 04-18-2022 15:58-0400 Body temperature 97 [degF] Antonio Smalls MD Work Phone: [facility] 04-18-2022 15:58-0400 Body weight 130.64 kg Antonio Smalls MD Work Phone: [facility] 04-18-2022 15:58-0400 Heart rate 100 /min Antonio Smalls MD Work Phone: [facility] 04-18-2022 15:58-0400 Respiratory rate 20 /min Antonio Smalls MD Work Phone: [facility] 04-11-2022 02:23-0400 Diastolic blood pressure 86 mm[Hg] [facility] Work Phone: 04-11-2022 02:23-0400 Heart rate 76 /min [facility] Work Phone: 04-11-2022 02:23-0400 Respiratory rate 14 /min [facility] Work Phone: 04-11-2022 02:23-0400 SaO2% (BldA) [Mass fraction] 98 % [facility] Work Phone: 04-11-2022 02:23-0400 Systolic blood pressure 133 mm[Hg] [facility] Work Phone: 04-11-2022 00:49-0400 Body height 185.42 cm [facility] Work Phone: 04-11-2022 00:49-0400 Body mass index (BMI) [Ratio] 38.9 kg/m2 [facility] Work Phone: 04-11-2022 00:49-0400 Body temperature 98.2 [degF] [facility] Work Phone: 04-11-2022 00:49-0400 Body weight 133.7 kg [facility] Work Phone: 03-29-2022 15:16-0400 Body weight 130.64 kg Suyapa Recinos MD Work Phone: [facility] 03-29-2022 15:16-0400 Diastolic blood pressure 78 mm[Hg] Suyapa Recinos MD Work Phone: [facility] 03-29-2022 15:16-0400 Systolic blood pressure 116 mm[Hg] Suyapa Recinos MD Work Phone: [facility] 03-12-2022 13:35-0400 Body height 182.5 cm Antonio Smalls MD Work Phone: [facility] 03-12-2022 13:35-0400 Body temperature 97.59 [degF] Antonio Smalls MD Work Phone: [facility] 03-12-2022 13:35-0400 Body weight 129.96 kg Antonio Smalls MD Work Phone: [facility] 03-12-2022 13:35-0400 Diastolic blood pressure 92 mm[Hg] Antonio Smalls MD Work Phone: [facility] 03-12-2022 13:35-0400 Heart rate 100 /min Antonio Smalls MD Work Phone: [facility] 03-12-2022 13:35-0400 Respiratory rate 20 /min Antonio Smalls MD Work Phone: [facility] 03-12-2022 13:35-0400 Systolic blood pressure 118 mm[Hg] Antonio Smalls MD Work Phone: [facility] 02-27-2022 14:56-0400 Body temperature 98.71 [degF] Larry Praisler-Wood [employer] Work Phone: [facility] 02-27-2022 14:56-0400 Body weight 130.36 kg Larry Praisler-Wood [employer]CH[employer] Work Phone: [facility] 02-27-2022 14:56-0400 Diastolic blood pressure 86 mm[Hg] Larry Praisler-Wood [employer] Work Phone: [facility] 02-27-2022 14:56-0400 Heart rate 98 /min Larry Praisler-Wood [employer]IC Work Phone: [facility] 02-27-2022 14:56-0400 Respiratory rate 21 /min Larry Praisler-Wood [employer] Work Phone: [facility] 02-27-2022 14:56-0400 SaO2% (BldA) [Mass fraction] 99 % Larry Praisler-Wood [employer] Work Phone: [facility] 02-27-2022 14:56-0400 Systolic blood pressure 114 mm[Hg] Larry Praisler-Wood [employer]CH[employer] Work Phone: [facility] 02-20-2022 18:09-0400 Body temperature 99 [degF] Larry Praisler-Wood [employer]IC Work Phone: [facility] 02-20-2022 18:09-0400 Body weight 129.82 kg Larry Praisler-Wood [employer]CH[employer]IC Work Phone: [facility] 02-20-2022 18:09-0400 Diastolic blood pressure 90 mm[Hg] Larry Praisler-Wood [employer] Work Phone: [facility] 02-20-2022 18:09-0400 Heart rate 108 /min Larry Praisler-Wood [employer] MECH[employer]IC Work Phone: [facility] 02-20-2022 18:09-0400 Respiratory rate 21 /min Larry Praisler-Wood [employer] MECH[employer]IC Work Phone: [facility] 02-20-2022 18:09-0400 SaO2% (BldA) [Mass fraction] 100 % Larry Praisler-Wood [employer] Work Phone: [facility] 02-20-2022 18:09-0400 Systolic blood pressure 118 mm[Hg] Larry Praisler-Wood [employer] Work Phone: [facility] 01-26-2022 01:59-0400 Body height 185.42 cm [facility] Work Phone: 01-26-2022 01:59-0400 Body mass index (BMI) [Ratio] 38.6 kg/m2 [facility] Work Phone: 01-26-2022 01:59-0400 Body temperature 98.4 [degF] [facility] Work Phone: 01-26-2022 01:59-0400 Body weight 132.9 kg [facility] Work Phone: 01-26-2022 01:59-0400 Diastolic blood pressure 82 mm[Hg] [facility] Work Phone: 01-26-2022 01:59-0400 Heart rate 119 /min [facility] Work Phone: 01-26-2022 01:59-0400 Respiratory rate 18 /min [facility] Work Phone: 01-26-2022 01:59-0400 SaO2% (BldA) [Mass fraction] 100 % [facility] Work Phone: 01-26-2022 01:59-0400 Systolic blood pressure 143 mm[Hg] [facility] Work Phone: Encounters Encounter Date Encounter Type Care Provider Facility Start: 11-21-2024 End: 11-24-2024 ambulatory [facility] Comment on above: Blood sugar Start: 11-13-2024 End: 11-15-2024 ambulatory Hailey Jett MD Work Phone: Neurology Comment on above: Question Start: 11-08-2024 End: 11-08-2024 ambulatory [facility] Facility:[facility] Start: 11-08-2024 End: 11-08-2024 Patient encounter procedure Sher Hollingsworth APRN.[employer] Work Phone: [facility] Comment on above: Generalized anxiety disorder with panic attacks (Primary Dx); Panic attacks; Type 2 diabetes mellitus without complication, without long-term current use of insulin (HCC); Fatty liver; Obesity, Class III, BMI >= 40; Migraine without status migrainosus, not intractable, unspecified migraine type; Attention deficit hyperactivity disorder (ADHD), combined type Start: 11-04-2024 End: 11-08-2024 ambulatory [facility] Comment on above: Lightheaded Start: 11-03-2024 End: 11-03-2024 ambulatory [facility] [place] Comment on above: Pill question Start: 11-02-2024 End: 11-02-2024 ambulatory [facility] Facility:[facility] Start: 11-02-2024 End: 11-02-2024 Patient encounter procedure Sher Hollingsworth APRN.[employer] Work Phone: [facility] Comment on above: Generalized anxiety disorder with panic attacks (Primary Dx); Panic attacks; Palpitations; Insomnia due to mental disorder; Post-traumatic stress disorder Start: 10-28-2024 End: 10-29-2024 Emergency department patient visit Julianna Hughes Facility:[facility] Start: 10-26-2024 End: 10-26-2024 Patient encounter procedure Sher Hollingsworth APRN.[employer] Work Phone: [facility] Comment on above: Generalized anxiety disorder with panic attacks (Primary Dx); Lightheaded; Dizziness; Numbness and tingling; Palpitations; Type 2 diabetes mellitus without complication, without long-term current use of insulin (HCC) Start: 10-26-2024 End: 10-27-2024 ambulatory [facility] Comment on above: Med question Start: 10-25-2024 End: 10-25-2024 Emergency department patient visit Dr. Kate Silva MD Work Phone: -Emergency Department Work Phone: Start: 10-22-2024 End: 10-22-2024 ambulatory KATE SILVA Facility:[facility] Start: 10-20-2024 End: 10-20-2024 Office outpatient visit 25 minutes Kate Silva MD Work Phone: [facility] [place] Comment on above: Acute bronchitis, un specified organism (Primary Dx); Lightheaded; Dizziness; Moderate episode of recurrent major depressive disorder (HCC); Generalized anxiety disorder with panic attacks; Dandruff; Seborrheic dermatitis; Attention deficit hyperactivity disorder (ADHD), combined type Start: 10-20-2024 End: 10-20-2024 ambulatory KATE SILVA Facility:[facility] Start: 10-16-2024 End: 10-18-2024 ambulatory [facility] Comment on above: Trulicty question Start: 10-13-2024 End: 10-13-2024 Emergency department patient visit DR KATE SILVA MD Facility:[facility] Start: 10-12-2024 End: 10-14-2024 Follow-up encounter Pat Ferrer APRN.CNP Work Phone: OB/Gynecology Comment on above: Results Start: 10-11-2024 End: 10-11-2024 ambulatory Gopal Yanez MD Work Phone: Hematology/Oncology Comment on above: Leukocytosis, unspec ified type (Primary Dx) Start: 10-11-2024 End: 10-11-2024 Patient encounter procedure Gopal Yanez MD Work Phone: Hematology/Oncology Start: 10-11-2024 End: 10-11-2024 ambulatory KATE SILVA Facility:[facility] Start: 10-11-2024 End: 10-11-2024 Patient encounter procedure Pat Ferrer APRN.[employer] Work Phone: OB/Gynecology Comment on above: Vulvar itching (Prim nafisa Dx); Missed menses Start: 10-07-2024 End: 10-08-2024 Telephone encounter Gopal Yanez MD Work Phone: Hematology/Oncology Comment on above: Appointment Patient Question Start: 10-06-2024 End: 10-06-2024 Emergency department patient visit Dr. aKte Silva MD Work Phone: -Emergency Department Work Phone: Start: 10-06-2024 End: 10-06-2024 ambulatory Pat Ferrre APRN.[employer] Work Phone: OB/Gynecology Comment on above: Question Start: 10-01-2024 End: 10-01-2024 ambulatory KATE SILVA Facility:[facility] Start: 10-01-2024 End: 10-01-2024 Office outpatient visit 25 minutes Kate Silva MD Work Phone: [facility] Comment on above: Vertigo (Primary Dx) ; Leukocytosis, unspecified type; Thrombocytosis; Dysfunction of both eustachian tubes; Otalgia of both ears; Depersonalization disorder (HCC); Other fatigue; Fatty (change of) liver, not elsewhere classified; Obstructive sleep apnea syndrome; Migraine without status migrainosus, not intractable, unspecified migraine type Start: 09-29-2024 End: 09-29-2024 Emergency department patient visit Dr. Kate Silva MD Work Phone: -Emergency Department Work Phone: Start: 09-27-2024 End: 09-27-2024 ambulatory Pat Ferrer APRN.[employer] Work Phone: OB/Gynecology Comment on above: Question Start: 09-16-2024 End: 09-16-2024 Refill Kate Silva MD Work Phone: [facility] [place] Comment on above: Refill Request Start: 09-13-2024 End: 09-13-2024 Refill Sher Hollingsworth APRN.CNP Work Phone: [facility] [place] Comment on above: Refill Request Start: 08-30-2024 End: 08-30-2024 ambulatory [facility] Start: 08-30-2024 End: 08-30-2024 Patient encounter procedure Santi Mcallister MD Work Phone: Cardiology Comment on above: Marfan's syndrome (P rimary Dx); PVC (premature ventricular contraction) Start: 08-24-2024 End: 08-24-2024 ambulatory [facility]andy [facility] Start: 08-24-2024 End: 08-24-2024 Office outpatient visit 25 minutes Radha Long PA-C Work Phone: [facility] Comment on above: Acute recurrent sinu sitis, unspecified location (Primary Dx) Start: 08-23-2024 End: 09-13-2024 ambulatory Kate Silva MD Work Phone: [facility] [place] Comment on above: Test results Start: 08-09-2024 End: 08-09-2024 ambulatory [facility] Start: 08-09-2024 End: 08-09-2024 [facility] KATE Scott [facility] Facility:[facility] Start: 08-09-2024 End: 08-09-2024 Office outpatient visit 25 minutes Kate Silva MD Work Phone: [facility] [place] Comment on above: Attention deficit hy peractivity disorder (ADHD), combined type (Primary Dx); Myalgia; Elevated LFTs; Nausea and vomiting, unspecified vomiting type; Gastroesophageal reflux disease, unspecified whether esophagitis present; Migraine without status migrainosus, not intractable, unspecified migraine type; Controlled type 2 diabetes mellitus without complication, without long-term current use of insulin (HCC); Eczema, unspecified type; Encounter for immunization; Encounter for long-term current use of medication Start: 07-18-2024 End: 07-19-2024 Refill Estrellita Molina PA-C Work Phone: [facility] [place] Comment on above: Refill Request Start: 07-13-2024 End: 07-13-2024 ambulatory Pat [place]bock [employer] Work Phone: OB/Gynecology Comment on above: Period Start: 06-23-2024 End: 07-14-2024 ambulatory Sher Darrick [employer]CH[employer]IC Work Phone: [facility] Comment on above: Shot Start: 06-17-2024 End: 06-17-2024 Refill Sher Darrick [employer] MECH[employer]IC Work Phone: [facility] [place] Comment on above: Refill Request Start: 06-01-2024 End: 06-01-2024 ambulatory Hailey Jett MD Work Phone: Neurology Comment on above: Sleep mask Start: 05-25-2024 End: 06-03-2024 ambulatory Sher Darrick [employer]IC Work Phone: [facility] [place] Comment on above: Trulicty question Start: 05-19-2024 End: 05-19-2024 ambulatory [facility] Facility:[facility] Start: 05-19-2024 End: 05-19-2024 Patient encounter procedure Arthur Joseph PA-C Work Phone: [facility] Comment on above: Acute non-recurrent frontal sinusitis (Primary Dx) Start: 05-16-2024 End: 05-18-2024 Refill Sher Darrick [employer] MECH[employer]IC Work Phone: [facility] [place] Comment on above: Refill Request Start: 05-13-2024 End: 05-13-2024 ambulatory Pat [place] [employer] MECH[employer]IC Work Phone: OB/Gynecology Comment on above: Question Start: 05-12-2024 End: 05-12-2024 ambulatory [facility] Facility:[facility] Start: 05-12-2024 End: 05-12-2024 Patient encounter procedure Rebeca Beasley APRN.CNM Work Phone: OB/Gynecology Comment on above: Vaginal discharge (P rimary Dx); Vaginal itching; Vulvar itching Start: 05-03-2024 End: 05-03-2024 Telephone encounter Sher Darrick [employer]IC Work Phone: [facility] Comment on above: Results Start: 04-30-2024 End: 04-30-2024 Patient encounter procedure Sher Darrick [employer] MECH[employer]IC Work Phone: [facility] Comment on above: Type 2 diabetes alexus itus without complication, without long- term current use of insulin (HCC) (Primary Dx); Urinary frequency; Migraine without status migrainosus, not intractable, unspecified migraine type; Vaginal yeast infection Start: 04-30-2024 End: 04-30-2024 ambulatory [facility] Facility:[facility] Start: 04-27-2024 End: 05-13-2024 ambulatory Pat Agata [employer] MECH[employer]IC Work Phone: OB/Gynecology Comment on above: Question Start: 04-16-2024 End: 04-19-2024 ambulatory Sher Darrick [employer] MECH[employer]IC Work Phone: [facility] Comment on above: Question Start: 04-13-2024 End: 04-14-2024 Refill Sher Darrick [employer] MECH[employer]IC Work Phone: [facility] Comment on above: Refill Request Start: 04-12-2024 End: 04-13-2024 ambulatory Pat Agata [employer] MECH[employer]IC Work Phone: OB/Gynecology Comment on above: Yest infection Start: 03-20-2024 End: 03-22-2024 ambulatory Sher Darrick [employer] MECH[employer]IC Work Phone: [facility] Comment on above: Truliicty question Start: 03-19-2024 End: 03-19-2024 ambulatory [facility] Facility:[facility] Start: 03-19-2024 End: 03-19-2024 Patient encounter procedure Sher Darrick [employer]IFTER.[employer] MECH[employer]IC Work Phone: [facility] Comment on above: Type 2 diabetes alexus itus without complication, without long- term current use of insulin (HCC) (Primary Dx); Fatty liver; Obesity, Class III, BMI >= 40; Vapes nicotine containing substance; Encounter for immunization; Encounter for therapeutic drug monitoring; Screening for lipid disorders Start: 03-15-2024 End: 03-15-2024 Refill Hemalatha Dejesus MD Work Phone: [facility] Comment on above: Refill Request Start: 03-04-2024 End: 03-04-2024 ambulatory [facility] Facility:[facility] Start: 03-04-2024 End: 03-05-2024 Patient encounter procedure Pat Agata [employer]IF[employer] MECH[employer]IC Work Phone: OB/Gynecology Comment on above: Vaginal yeast infect ion (Primary Dx) Refill Request Start: 03-02-2024 End: 03-02-2024 [facility] Facility:[facility] Start: 03-02-2024 End: 03-02-2024 Patient encounter procedure Rebeca Russell [employer]IF[employer] MECH[employer]IC Work Phone: [facility] Comment on above: Rhinosinusitis (Prim nafisa Dx) Start: 02-18-2024 End: 02-18-2024 ambulatory Pat [place] [employer]IFTER.ELECTRIC [employer]OVE MECHANIC Work Phone: OB/Gynecology Comment on above: Question Start: 02-14-2024 End: 02-16-2024 ambulatory Sher Darrick [employer].E[employer]OVE MECH[employer]IC Work Phone: [facility] [place] Comment on above: Question Start: 02-10-2024 End: 02-10-2024 ambulatory [facility] Facility:[facility] Start: 02-10-2024 End: 02-10-2024 Patient encounter procedure Pat [place] [employer]IFTER.E[employer]RIC [employer]OVE MECH[employer]IC Work Phone: OB/Gynecology Comment on above: Vaginal discharge (P rimary Dx) Refill Request Start: 02-08-2024 Refill Hemalatha Dejesus MD Work Phone: [facility] Comment on above: Refill Request Start: 02-02-2024 End: 02-02-2024 ambulatory [facility] Facility:[facility] Start: 02-02-2024 End: 02-02-2024 Patient encounter procedure Gerardo Crowe MD Work Phone: Orthopaedics Comment on above: Right hand pain Start: 01-27-2024 End: 01-27-2024 ambulatory KATE D TALAMPAS Facility:[facility] Start: 01-27-2024 End: 01-27-2024 Patient encounter procedure Sher Hollingsworth [employer] MECH[employer]IC Work Phone: [facility] [place] Comment on above: Type 2 diabetes alexus itus without complication, without long- term current use of insulin (HCC) (Primary Dx); Fatty liver; Obesity, Class III, BMI >= 40; Adenomyosis Start: 01-26-2024 Telephone encounter Pat carrizales [employer]ACK [employer]IFTER.E[employer]OVE MECH[employer]IC Work Phone: OB/Gynecology Comment on above: Results Start: 01-23-2024 End: 01-23-2024 ambulatory KATE D MERNAAMPAS OB/Gynecology Start: 01-23-2024 End: 01-23-2024 Patient encounter procedure [employer] 1 [employer] OB/Gynecology Start: 01-22-2024 ambulatory Pat Ferrer [employer]IFTER.E[employer] MECH[employer]IC Work Phone: OB/Gynecology Comment on above: No period Start: 01-14-2024 End: 01-14-2024 ambulatory KATE D TALAMPAS Facility:[facility] Start: 01-09-2024 Refill Sher Hollingsworth [employer].E[employer]OVE MECH[employer]IC Work Phone: [facility] Comment on above: Refill Request Start: 12-28-2023 ambulatory Estrellita Molina PA-C Work Phone: [facility] [place] Comment on above: Acid reflex pills Start: 12-22-2023 End: 12-22-2023 Subsequent hospital visit by physician Kailey [facility] Work Phone: Radiology Comment on above: Foot injury, left, i nitial encounter [S99.922A] Start: 12-22-2023 End: 12-22-2023 ambulatory KATE D TALAMPAS Facility:[facility] Start: 12-22-2023 End: 12-22-2023 Patient encounter procedure Larry Joseph [employer] MECH[employer]IC Work Phone: [facility] Comment on above: Foot injury, left, i nitial encounter (Primary Dx) Start: 12-17-2023 End: 12-17-2023 Subsequent hospital visit by physician Xr [facility] [place] Work Phone: Radiology Comment on above: Right hand pain [[id number]] Start: 12-17-2023 End: 12-17-2023 ambulatory [facility] Facility:[facility] Start: 12-17-2023 End: 12-17-2023 Patient encounter procedure Dusty Donatoaziza SACK LIFTER.ELECTRIC STOVE MECHANIC Work Phone: [facility] Comment on above: Right hand pain (Carmen nick Dx) Start: 12-15-2023 End: 12-15-2023 ambulatory Sher Hollingsworth SACK LIFTER.ELECTRIC STOVE MECHANIC Work Phone: [facility] [place] Comment on above: Ritalin Yeast pill Start: 12-15-2023 Telephone encounter Pat carrizales SACK LIFTER.ELECTRIC STOVE MECHANIC Work Phone: OB/Gynecology Comment on above: Results Start: 12-15-2023 End: 12-15-2023 Patient encounter procedure Sher Hollingsworth SACK LIFTER.ELECTRIC STOVE MECHANIC Work Phone: [facility] [place] Comment on above: Migraine without sta tus migrainosus, not intractable, unspecified migraine type (Primary Dx); Attention deficit hyperactivity disorder (ADHD), combined type; Impacted cerumen of right ear; Acute otitis externa of right ear, unspecified type Start: 12-12-2023 End: 12-12-2023 ambulatory [facility] Facility:[facility] Start: 12-12-2023 End: 12-12-2023 Patient encounter procedure Pat Ferrer SACK LIFTER.ELECTRIC STOVE MECHANIC Work Phone: OB/Gynecology Comment on above: Vaginal itching (Carmen nick Dx) Start: 12-10-2023 Refill Sher Hollingsworth SACK LIFTER.ELECTRIC STOVE MECHANIC Work Phone: Internal [facility] [place] Comment on above: Refill Request Start: 12-02-2023 End: 12-02-2023 Emergency department patient visit [facility] Facility:[facility] Start: 12-02-2023 End: 12-02-2023 ambulatory KATE SILVA Facility:[facility] Start: 12-02-2023 End: 12-02-2023 Patient encounter procedure Lucas Snider APRN.CNP Work Phone: [facility] Comment on above: Right upper quadrant abdominal pain (Primary Dx) Start: 11-30-2023 ambulatory Estrellita Litoka PA-C Work Phone: [facility] [place] Comment on above: Liver biopsy Start: 11-21-2023 End: 11-21-2023 ambulatory RASTA DUMONT Facility:[facility] Start: 11-18-2023 Chart abstracting [facility] Main Work Phone: Neurology Comment on above: CMN Start: 11-16-2023 ambulatory Estrellita Jesse PA-C Work Phone: [facility] [place] Comment on above: Poop test Pills questions Start: 11-13-2023 Refill Kate novoa MD Work Phone: Internal [facility] [place] Comment on above: Refill Request Start: 11-11-2023 Orders Only Joel Bai RN [facility] INTERVENTIONAL RADIOLOGY Comment on above: NAFLD (nonalcoholic fatty liver disease) (Primary Dx) Start: 11-03-2023 ambulatory Estrellitalee ann Morseka PA-C Work Phone: [facility] Comment on above: Liver biopsy Start: 10-22-2023 End: 10-22-2023 Patient encounter procedure Estrellita Morseka PA-C Work Phone: [facility] [place] Comment on above: NAFLD (nonalcoholic fatty liver disease) (Primary Dx); Diarrhea, unspecified type; Gastroesophageal reflux disease, unspecified whether esophagitis present Start: 10-20-2023 ambulatory Suyapa patel MD Work Phone: OB/Gynecology Comment on above: No period Start: 10-09-2023 End: 10-09-2023 Patient encounter procedure Aria BURGESS Work Phone: [facility] Comment on above: Sore throat (Primary Dx); Bacterial sinusitis Start: 09-16-2023 End: 09-16-2023 Office outpatient visit 25 minutes Kate Silva MD Work Phone: [facility] [place] Comment on above: Migraine without sta tus migrainosus, not intractable, unspecified migraine type (Primary Dx); Attention deficit hyperactivity disorder (ADHD), combined type; Vaping nicotine dependence, non-tobacco product; Recurrent major depressive disorder, in partial remission (HCC) Start: 09-11-2023 End: 09-11-2023 Patient encounter procedure Pat Ferrer APRN.ELECTRIC STOVE MECHANIC Work Phone: OB/Gynecology Comment on above: Vaginal discharge (P rimary Dx); Vaginal itching Start: 08-18-2023 End: 08-18-2023 Patient encounter procedure Los Barber APRN.ELECTRIC STOVE MECHANIC Work Phone: [facility] Comment on above: Exposure to SARS-ass ociated coronavirus (Primary Dx) Start: 08-13-2023 Refill Nicolle ramos MD Work Phone: OB/Gynecology Start: 08-11-2023 End: 08-11-2023 Patient encounter procedure Los Barber APRN.ELECTRIC STOVE MECHANIC Work Phone: [facility] Comment on above: Contusion of right h and, subsequent encounter (Primary Dx) Start: 08-11-2023 End: 08-11-2023 Patient encounter procedure Nicolle Hopson MD Work Phone: OB/Gynecology Comment on above: Vaginal itching (Carmen nick Dx); Vaginal odor; Dysuria Start: 07-16-2023 End: 07-16-2023 ambulatory Gopal Yanez MD Work Phone: Hematology/Oncology Comment on above: Leukocytosis, unspec ified type (Primary Dx); Thrombocytosis Start: 07-16-2023 End: 07-16-2023 Telemedicine consultation with patient Gopal Yanez MD Work Phone: [facility] Start: 06-06-2023 End: 06-06-2023 Office outpatient visit 25 minutes Kate Silva MD Work Phone: [facility] [place] Comment on above: Attention deficit hy peractivity disorder (ADHD), combined type (Primary Dx); Neck pain; ESTEBAN on CPAP; Class 3 severe obesity due to excess calories with body mass index (BMI) of 40.0 to 44.9 in adult, unspecified whether serious comorbidity present (HCC); Moderate episode of recurrent major depressive disorder (HCC); Encounter for immunization Start: 05-16-2023 Refill Kate novoa MD Work Phone: Internal [facility] [place] Comment on above: Refill Request Start: 05-15-2023 Telephone encounter Yared duncan APRN.ELECTRIC STOVE MECHANIC Work Phone: [facility] Comment on above: Results Start: 05-14-2023 End: 05-14-2023 Patient encounter procedure Lucas Snider APRN.ELECTRIC STOVE MECHANIC Work Phone: [facility] Comment on above: Vaginal odor (Primar y Dx) Start: 04-28-2023 End: 04-28-2023 Subsequent hospital visit by physician [facility] Work Phone: Radiology Comment on above: Fatty liver [K76.0] Start: 04-22-2023 End: 04-22-2023 Patient encounter procedure Zuleika Avalos PA-C Work Phone: [facility] [place] Comment on above: Fatty liver (Primary Dx); Elevated LFTs; Intermittent diarrhea Start: 04-17-2023 End: 04-17-2023 Subsequent hospital visit by physician [facility] Work Phone: Radiology Comment on above: Secondary amenorrhea [N91.1] Start: 04-15-2023 Refill Sher Hollingsworth APRN.ELECTRIC STOVE MECHANIC Work Phone: [facility] [place] Comment on above: Refill Request Start: 04-09-2023 End: 04-09-2023 Patient encounter procedure Kelly Nunez APRN.CNM Work Phone: OB/Gynecology Comment on above: Secondary amenorrhea (Primary Dx); Missed menses Start: 03-20-2023 End: 03-20-2023 Patient encounter procedure Keeley Severino SACK LIFTER.ELECTRIC STOVE MECHANIC Work Phone: [facility] Comment on above: Protracted URI (Prim nafisa Dx); Non-recurrent acute serous otitis media of right ear Start: 03-17-2023 ambulatory Suyapa patel MD Work Phone: OB/Gynecology Comment on above: Provera Start: 03-11-2023 Refill Sher Hollingsworth SACK LIFTER.ELECTRIC STOVE MECHANIC Work Phone: [facility] [place] Comment on above: Refill Request Start: 02-25-2023 End: 02-25-2023 ambulatory Hailey Jett MD Work Phone: Neurology Comment on above: ESTEBAN (obstructive sle ep apnea) (Primary Dx); ESTEBAN on CPAP Start: 02-25-2023 End: 02-25-2023 Telemedicine consultation with patient Hailey Jett MD Work Phone: [facility] Start: 02-19-2023 Telephone encounter Hailey Jett MD Work Phone: Neurology Comment on above: PAP Therapy Follow U p (DOWNLOAD) Start: 01-31-2023 Chart abstracting [facility] Main Work Phone: Neurology Comment on above: CMN Start: 01-29-2023 ambulatory Hailey Jett MD Work Phone: NEUROLOGY Comment on above: C pap Start: 01-28-2023 End: 01-28-2023 Office outpatient visit 25 minutes 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 SACK LIFTER.CARBON ROD INSERTER Work Phone: [facility] [place] Comment on above: Attention deficit hy peractivity disorder (ADHD), combined type (Primary Dx); Migraine without status migrainosus, not intractable, unspecified migraine type; Heartburn Start: 01-13-2023 End: 01-13-2023 Orders Only Hailey Jett MD Work Phone: Neurology Comment on above: ESTEBAN (obstructive sle ep apnea) (Primary Dx) Orders (Pap Rx.) Ritalin Leukocytosis, unspec ified type (Primary Dx); Thrombocytosis Start: 01-11-2023 Telephone encounter Aria BURGESS Work Phone: [facility] Comment on above: Results Start: 01-10-2023 End: 01-10-2023 Patient encounter procedure Aria BURGESS Work Phone: [facility] Comment on above: Vaginal discharge (P rimary Dx) Start: 01-08-2023 Refill 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 SACK LIFTER.CARBON ROD INSERTER Work Phone: [facility] [place] Comment on above: Refill Request Start: 01-02-2023 ambulatory Hailey Jett MD Work Phone: NEUROLOGY Comment on above: Number to call to [facility] Start: 12-28-2022 Chart abstracting [facility] Main Work Phone: Neurology Start: 12-24-2022 End: 12-24-2022 Patient encounter procedure Larry Joseph SACK LIFTER.ELECTRIC STOVE MECHANIC Work Phone: [facility] Comment on above: Sore throat (Primary Dx); Other acute nonsuppurative otitis media of right ear, recurrence not specified Start: 12-24-2022 ambulatory Hailey Jett MD Work Phone: NEUROLOGY Comment on above: Heart question Start: 12-11-2022 ambulatory Santi Mcallister MD Work Phone: Cardiology Comment on above: Heart Start: 12-05-2022 Refill Zuleika adame PA-C Work Phone: [facility] [place] Comment on above: Refill Request Start: 11-28-2022 ambulatory Sher Hollingsworth SACK LIFTER.ELECTRIC STOVE MECHANIC Work Phone: [facility] [place] Comment on above: Bv Start: 11-09-2022 Refill 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 SACK LIFTER.CARBON ROD INSERTER Work Phone: [facility] [place] Comment on above: Refill Request Start: 11-08-2022 End: 11-08-2022 ambulatory Hailey Jett MD Work Phone: NEUROLOGY Comment on above: ESTEBAN (obstructive sle ep apnea) (Primary Dx) Start: 11-08-2022 End: 11-08-2022 Telemedicine consultation with patient [facility]iley Jett MD [facility] Start: 11-05-2022 End: 11-05-2022 ambulatory [facility] Work Phone: [facility] Comment on above: Spirometry Start: 11-05-2022 End: 11-05-2022 Patient encounter procedure [facility] Work Phone: [facility] Start: 11-04-2022 End: 11-04-2022 Patient encounter procedure Rebeca Russell SACK LIFTER.ELECTRIC STOVE MECHANIC Work Phone: [facility] Comment on above: URI, acute (Primary Dx); Acute otitis media, left Start: 10-31-2022 ambulatory UNKNOWN PROVIDER Facili ty:[facility] Start: 10-28-2022 End: 10-28-2022 Office outpatient visit 25 minutes 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 APRN.CARBON ROD INSERTER Work Phone: Internal Medicine [place] Comment on above: Migraine without sta tus migrainosus, not intractable, unspecified migraine type (Primary Dx); Encounter for immunization; Screening for HIV (human immunodeficiency virus); Attention deficit hyperactivity disorder (ADHD), combined type; SOBOE (shortness of breath on exertion); Obesity, Class III, BMI >= 40 Start: 10-12-2022 Chart abstracting Sleep Center Main Work Phone: Neurology Start: 10-11-2022 End: 10-12-2022 ambulatory HAILEY JETT Facility:[facility] Start: 10-09-2022 Refill Zuleika adame PA-C Work Phone: [facility] [place] Comment on above: Refill Request Returning Patient's Call Start: 09-30-2022 End: 09-30-2022 Patient encounter procedure Santi Mcallister MD Work Phone: Cardiology Comment on above: Obesity, Class III, BMI >= 40 (Primary Dx); Precordial pain Start: 09-16-2022 ambulatory Suyapa patel MD Work Phone: OB/Gynecology Comment on above: Period question Start: 09-09-2022 Refill Suyapa patel MD Work Phone: OB/Gynecology Comment on above: Refill Request Start: 09-06-2022 End: 09-06-2022 Patient encounter procedure Hailey Jett MD Work Phone: NEUROLOGY Comment on above: Suspected sleep apne a (Primary Dx); Malaise and fatigue; Snoring; Chronic fatigue Start: 09-05-2022 End: 09-05-2022 Patient encounter procedure Aria Walden PA Work Phone: [facility] Comment on above: Sore throat (Primary Dx) Start: 09-02-2022 ambulatory Russell A Masci D O Work Phone: Hematology/Oncology Comment on above: Question regarding F LOW CYTOMETRY PERIPHERAL BLOOD LEUK/LYMPH (FCLEUK) Start: 09-01-2022 Telephone encounter Russell Solo ci DO Work Phone: Hematology/Oncology Comment on above: Results Start: 08-27-2022 Telephone encounter Russell Cadny Mas ci DO Work Phone: Hematology/Oncology Comment on above: Results Start: 08-26-2022 ambulatory Suyapa patel MD Work Phone: OB/Gynecology Comment on above: Provera Start: 08-22-2022 End: 08-22-2022 ambulatory Russell A Masci DO Work Phone: Hematology/Oncology Comment on above: Leukocytosis, unspec ified type (Primary Dx); Thrombocytosis Start: 08-22-2022 End: 08-22-2022 Patient encounter procedure Russell A Masci DO Work Phone: [facility] Start: 08-14-2022 Refill Antonio cheatham MD Work Phone: [facility] [place] Comment on above: Refill Request Start: 08-08-2022 ambulatory Zuleika adame PALienC Work Phone: [facility] [place] Comment on above: Question regarding V ITAMIN D 25 HYDROXY Start: 08-07-2022 End: 08-07-2022 Patient encounter procedure Zuleika BURGESS-C Work Phone: [facility] Comment on above: Fatty liver (Primary Dx); Malaise and fatigue Start: 08-05-2022 Refill Antonio cheatham MD Work Phone: [facility] [place] Comment on above: Refill Request Start: 07-18-2022 Telephone encounter Johnson Painter MD Work Phone: [facility] Comment on above: Results (BV, Yeimy ) Start: 07-09-2022 End: 07-09-2022 Refill Antonio Smalls MD Work Phone: [facility] [place] Comment on above: Refill Request Sinobronchitis (Prim nafisa Dx) Start: 07-07-2022 Refill Antonio cheatham MD Work Phone: [facility] [place] Comment on above: Refill Request Start: 07-05-2022 End: 07-05-2022 Subsequent hospital visit by physician Mirna Hayes MD Work Phone: [facility] INTERVENTIONAL RADIOLOGY Comment on above: Fatty liver [K76.0] Start: 07-03-2022 Refill Antonio cheatham MD Work Phone: [facility] [place] Comment on above: Refill Request Start: 06-30-2022 Refill Zuleika BURGESS-C Work Phone: [facility] Comment on above: Refill Request Start: 06-13-2022 Telephone encounter Zuleika BURGESS-C Work Phone: [facility] Comment on above: Results Start: 06-11-2022 E-mail encounter fro m caregiver Zuleika BURGESS-C Work Phone: [facility] Start: 06-11-2022 Follow-up encounter Zuleika BURGESS-Jeremi Work Phone: [facility] Comment on above: Fibroscan follow up Refill Request Start: 06-11-2022 End: 06-11-2022 Patient encounter procedure Antonio Smalls MD Work Phone: [facility] [place] Comment on above: Chronic rhinitis (Pr imary Dx); Dysfunction of both eustachian tubes; Chronic cough; Shortness of breath Start: 06-07-2022 Refill Antonio cheatham MD Work Phone: [facility] [place] Comment on above: Refill Request Start: 06-06-2022 Telephone encounter Antonio Smalls MD Work Phone: [facility] [place] Comment on above: Refill Request Start: 05-30-2022 End: 05-30-2022 Refill Suyapa Recinos MD Work Phone: OB/Gynecology Comment on above: Refill Request Medicine question Irregular menstrual cycle (Primary Dx) Start: 05-24-2022 Telephone encounter James hartley MD Work Phone: OB/Gynecology Comment on above: Patient Question Start: 05-09-2022 Orders Only Antonio cheatham MD Work Phone: [facility] [place] Comment on above: Attention deficit hy peractivity disorder (ADHD), combined type Start: 05-07-2022 End: 05-07-2022 Patient encounter procedure Annia Hogan APRN.CNP Work Phone: [facility] [place] Comment on above: Fatty liver (Primary Dx); Abnormal laboratory test; Malaise and fatigue; Diarrhea, unspecified type; Abdominal pain, unspecified abdominal location; Nausea Start: 05-03-2022 ambulatory Suyapa patel MD Work Phone: OB/Gynecology Comment on above: Medication question Start: 04-30-2022 Telephone encounter Antonio Smalls MD Work Phone: [facility] [place] Comment on above: Ultrasound results Start: 04-29-2022 End: 04-29-2022 Subsequent hospital visit by physician [facility] Work Phone: Radiology Comment on above: Abnormal laboratory test [R89.9] Start: 04-18-2022 End: 04-18-2022 Patient encounter procedure Antonio Smalls MD Work Phone: [facility] Comment on above: Abnormal laboratory test (Primary Dx); Malaise and fatigue; Diarrhea, unspecified type; Abdominal pain, unspecified abdominal location Start: 04-18-2022 Telephone encounter Antonio Smalls MD Work Phone: [facility] Comment on above: Referral Request Start: 04-11-2022 End: 04-11-2022 [facility] Start: 04-05-2022 Telephone encounter Antonio Smalls MD Work Phone: [facility] [place] Comment on above: Results (not normal) Start: 04-04-2022 Telephone encounter Antonio Smalls MD Work Phone: [facility] Comment on above: Results Start: 03-29-2022 End: 03-29-2022 Patient encounter procedure Suyapa Recinos MD Work Phone: OB/Gynecology Comment on above: Skin tag of anus (Pr imary Dx); Irregular menstrual cycle Start: 03-12-2022 Telephone encounter Antonio Smalls MD Work Phone: [facility] Comment on above: Referral Request Start: 03-12-2022 End: 03-12-2022 Patient encounter procedure Antonio Smalls MD Work Phone: [facility] Comment on above: Attention deficit hy peractivity disorder (ADHD), combined type (Primary Dx); Migraine without status migrainosus, not intractable, unspecified migraine type; Anxiety; Pain in right foot; Encounter for immunization Start: 03-01-2022 Telephone encounter Larry Joseph APRN.ELECTRIC STOVE MECHANIC Work Phone: [facility] Comment on above: Results Start: 02-27-2022 End: 02-27-2022 Patient encounter procedure Larry Joseph APRN.CNP Work Phone: [facility] Comment on above: Abnormal urination ( Primary Dx); Irregular periods; Acute vaginitis Start: 02-20-2022 End: 02-20-2022 Subsequent hospital visit by physician [facility] [place] Work Phone: Radiology Comment on above: Acute right ankle pa in [M25.571] Start: 02-20-2022 End: 02-20-2022 Patient encounter procedure Larry Joseph APRN.CNP Work Phone: [facility] Comment on above: Foot pain, right (Pr imary Dx); Acute right ankle pain Start: 01-30-2022 Refill Megha Nixon ed, MD Work Phone: [facility] [place] Comment on above: Refill Request Start: 01-26-2022 End: 01-26-2022 [facility] Start: 01-04-2022 Refill Antonio cheatham MD Work Phone: [facility] [place] Comment on above: Refill Request Start: 12-07-2021 Refill Hemalatha Dejesus MD Work Phone: [facility] [place] Comment on above: Refill Request Start: 11-06-2021 Refill Antonio cheatham MD Work Phone: [facility] [place] Comment on above: Refill Request Start: 10-11-2021 Telephone encounter Antonio Smalls MD Work Phone: [facility] Comment on above: Results Start: 10-09-2021 Refill Antonio cheatham MD Work Phone: [facility] [place] Comment on above: Refill Request Start: 07-12-2021 End: 07-12-2021 Subsequent hospital visit by physician [facility] Work Phone: Radiology Comment on above: Injury of toe on rig ht foot, initial encounter [S99.921A] Start: 04-19-2021 End: 04-19-2021 ambulatory NATO VALDEZ [facility] Start: 04-18-2021 End: 04-19-2021 ambulatory GERRI BERNAL [facility] Start: 04-10-2021 ambulatory [facility] Start: 04-10-2021 End: 04-10-2021 Emergency department patient visit GERRI BERNAL [facility] Start: 04-04-2021 ambulatory [facility] Start: 04-29-2018 Ambulatory JESSICA NOGUERA [facility] Start: 04-29-2017 End: 04-29-2017 Ambulatory JESSICA NOGUERA Facility:[facility] Procedures Date Procedure Procedure Detail Performing Clinician Start: 10-25-2024 Plain chest X-ray Dr. Kate Silva MD Work Phone: Start: 10-11-2024 UA DIP,URINE HCG (POC) Pat Agata APR N.ELECTRIC STOVE MECHANIC Work Phone: Start: 10-06-2024 CT of head without contrast Dr. Kate Silva MD Work Phone: Start: 09-29-2024 Plain chest X-ray Dr. Kate Silva MD Work Phone: Start: 08-30-2024 Ecg routine ecg w/least 12 lds i&r only [facility] Provider Start: 04-30-2024 Urnls dip stick/tablet rgnt auto w/o microscopy Sher Darrick SACK LIFTER.ELECTRIC STOVE MECHANIC Work Phone: Start: 01-23-2024 Us pelvic nonobstetric real-time image complete Pat Lubbock SACK LIFTER.ELECTRIC STOVE MECHANIC Work Phone: Start: 12-22-2023 Radex foot complete minimum 3 views Larry Joseph SACK LIFTER.ELECTRIC STOVE MECHANIC Work Phone: Start: 12-17-2023 Radex hand minimum 3 views Dusty García SACK LIFTER.ELECTRIC STOVE MECHANIC Work Phone: Start: 10-09-2023 STREP A MOLECULAR (POC) Aria altamirano PA Work Phone: Start: 08-18-2023 COVID & INFLUENZA A/B & RSV NAAT, ROUTINE Los Barber SACK LIFTER.ELECTRIC STOVE MECHANIC Work Phone: Start: 08-11-2023 BACTERIAL VAGINOSIS NAAT Nicolle gaviria MD Work Phone: Start: 08-11-2023 Iadna trichomonas vaginalis amplified probe tech Nicolle Hopson MD Work Phone: Start: 06-06-2023 INFLUENZA VACCINE, AGE 6 MO - 64 YR, QUADRIVALENT (AFLURIA, FLULAVAL, FLUZONE) Kate Silva MD Work Phone: Start: 04-28-2023 End: 04-28-2023 Us abdominal real time w/image limited Zuleika Avalos PA-C Work Phone: Start: 04-17-2023 Us transvaginal Kelly Justinchastity SACK LIFTER.CNM Work Phone: Start: 12-24-2022 STREP A MOLECULAR (POC) Larry park SACK LIFTER.ELECTRIC STOVE MECHANIC Work Phone: Start: 11-05-2022 Brncdilat rspse spmtry pre&post-brncdilat admn 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 SACK LIFTER.CARBON ROD INSERTER Work Phone: Start: 09-05-2022 STREP A MOLECULAR (POC) Aria BURGESS Work Phone: Start: 07-09-2022 COVID WITH FLUA+B, ROUTINE Arthur R José Manuel BETANCOURTC Work Phone: Start: 07-05-2022 US IMAGING GUIDED [...] stick/tablet rgnt auto w/o microscopy Keeley Severino SACK LIFTER.ELECTRIC STOVE MECHANIC Work Phone: Start: 02-20-2022 Radex ankle complete minimum 3 views Larry Joseph APRN.ELECTRIC STOVE MECHANIC Work Phone: Start: 01-26-2022 Radiography of ankle Start: 01-26-2022 X-ray of both feet Start: 07-12-2021 Radex toe minimum 2 views Antonio cheatham MD Work Phone: Start: 09-08-2018 Adult depression screening assessment Antonio Smalls MD Work Phone: Laboratory test resu lt abnormal Abnormal laboratory test Antonio Smalls MD Work Phone: Laboratory test resu lt abnormal Abnormal laboratory test Antonio Smalls MD Work Phone: Laboratory test resu lt abnormal Abnormal laboratory test Antonio Smalls MD Work Phone: Laboratory test resu lt abnormal Abnormal laboratory test Annia Hogan SACK LIFTER.ELECTRIC STOVE MECHANIC Work Phone: Laboratory test resu lt abnormal Abnormal laboratory test Us 1 Work Phone: Plan of Treatment Date Care Activity Detail Author Start: 08-09-2034 Urine microalbumin profile DTaP,Tdap,Td Vaccine (8 - Td or Tdap) [facility] Start: 11-08-2025 Annual PCP Team Chronic Disease Visit Annual PCP Team Chronic Disease Visit [facility] Start: 11-02-2025 Annual PCP Team Chronic Disease Visit Annual PCP Team Chronic Disease Visit [facility] Start: 10-27-2025 Glaucoma screening Dilated Retinal Exam [facility] Start: 10-26-2025 Annual PCP Team Chronic Disease Visit Annual PCP Team Chronic Disease Visit [facility] Start: 10-01-2025 Annual PCP Team Chronic Disease Visit Annual PCP Team Chronic Disease Visit [facility] Start: 08-09-2025 Annual PCP Team Chronic Disease Visit Annual PCP Team Chronic Disease Visit [facility] Start: 05-04-2025 End: 05-04-2025 Patient encounter procedure 05/04/2025 2:00 PM EST Office Visit [facility] [place] [address] [facility] [place] [place] [facility] [place] [address] Kate Silva MD [address] [place] [address] 3 month f/u [facility] [place] Comment on above: 3 month f/u Start: 04-30-2025 Annual PCP Team Chronic Disease Visit Annual PCP Team Chronic Disease Visit [facility] Start: 04-30-2025 Covid-19 Vaccine ( season) Covid-19 Vaccine ( season) [facility] Comment on above: Postponed from 02/29/2024 (Declined at t his time) Start: 04-30-2025 Diabetic foot examination Diabetic Foot Exam [facility] Start: 04-30-2025 Hepatitis B screening Urine Albumin:Creatinine Ratio [facility] Start: 04-30-2025 Hepatitis B surface antibody level LDL Cholesterol [facility] Start: 04-25-2025 End: 04-25-2025 Patient encounter procedure 04/25/2025 8:40 AM EDT Office Visit Cardiology [address] [place] [address] Santi Mcallister MD [address], [address] [place], [place] [id number] 6 month follow up Cardiology Comment on above: 6 month follow up Start: 03-19-2025 Annual PCP Team Chronic Disease Visit Annual PCP Team Chronic Disease Visit [facility] Start: 02-09-2025 End: 02-09-2025 Patient encounter procedure 02/09/2025 4:00 PM EDT Office Visit [facility] [place] [address] [place] [address] Kate Silva MD [address] [place] [address] 3 month f/u [facility] [place] Comment on above: 3 month f/u Start: 02-06-2025 Hemoglobin A1c measurement HbA1C [facility] Start: 01-26-2025 Annual PCP Team Chronic Disease Visit Annual PCP Team Chronic Disease Visit [facility] Start: 12-06-2024 End: 12-06-2024 Patient encounter procedure 12/06/2024 2:00 PM EDT Office Visit [facility] [place] [address] [place] [address] Sher Hollingsworth APRN.[employer] [address] [place] [address] 4 week follow up [facility] [place] Comment on above: 4 week follow up Start: 11-16-2024 End: 11-16-2024 Patient encounter procedure 11/16/2024 4:20 PM EDT Office Visit Neurology [address] [place] [address] Hailey Jett MD [address] [place] [address] FOLLOW UP / SLEEP Neurology Comment on above: FOLLOW UP / SLEEP Start: 11-08-2024 End: 11-08-2024 Patient encounter procedure [facility] [place] Comment on above: 3 month f/u Start: 10-28-2024 Hemoglobin A1c measurement HbA1C [facility] Start: 10-25-2024 [facility] Start: 10-22-2024 End: 10-22-2024 ambulatory 10/22/2024 8:30 AM EDT [facility] Neurology [address] [address] Estrellita Kumar APRN.[employer] [address] [address] Numbness and tingling [R20.0, R20.2] Neurology Comment on above: Numbness and tingling [R20.0, R20.2] Start: 10-20-2024 End: 10-20-2024 Patient encounter procedure 10/20/2024 10:00 AM EDT Office Visit [facility] [place] [address] [place] [address] Kate Silva MD [address] [place], [place] [id number] [facility] Er fatigue, lightheaded [facility] [place] Comment on above: [facility] Er fatigue, lighthea ded Start: 10-11-2024 End: 04-14-2025 ambulatory 10/11/2024 3:40 PM EDT Visit (SP) Office Hematology/Oncology [address] [place] [address] Gopal Yanez MD [address] [place] [address] OV* Hematology/Oncology Comment on above: OV* Start: 10-11-2024 End: 01-10-2025 CBC W Auto Differential panel - Blood COMPLETE BLOOD COUNT AND DIFFERENTIAL Lab Routine Leukocytosis, unspecified type Expected: 10/11/2024, Expires: 01/10/2025 [facility] Work Phone: Comment on above: Expected: 10/11/2024, Expires: Start: 10-11-2024 End: 01-10-2025 Erythrocyte sedimentation rate SEDIMENTATION RATE, WESTERGREN Lab Routine Leukocytosis, unspecified type Expected: 10/11/2024, Expires: 01/10/2025 [facility] Comment on above: Expected: 10/11/2024, Expires: Start: 10-11-2024 End: 10-11-2024 Patient encounter procedure 10/11/2024 9:30 AM EDT Office Visit OB/Gynecology [address] [place] [address] Pat Ferrer APRN.[employer] [address] [place] [address] Vulvar irritation [N90.89] OB/Gynecology Comment on above: Vulvar irritation [N90.89] Start: 10-06-2024 [facility] Start: 10-01-2024 End: 12-31-2024 CBC W Auto Differential panel - Blood COMPLETE BLOOD COUNT AND DIFFERENTIAL Lab Routine Leukocytosis, unspecified type Thrombocytosis Other fatigue Expected: 10/01/2024, Expires: 12/31/2024 [facility] Work Phone: Comment on above: Expected: 10/01/2024, Expires: Start: 10-01-2024 End: 12-31-2024 Thyrotropin [Units/volume] in Serum or Plasma THYROID STIMULATING HORMONE Lab Routine Other fatigue Expected: 10/01/2024, Expires: 12/31/2024 [facility] Comment on above: Expected: 10/01/2024, Expires: Start: 10-01-2024 End: 12-31-2024 Thyroxine (T4) free [Mass/volume] in Serum or Plasma T4 FREE/FREE THYROXINE Lab Routine Other fatigue Expected: 10/01/2024, Expires: 12/31/2024 [facility] Comment on above: Expected: 10/01/2024, Expires: Start: 10-01-2024 End: 12-31-2024 Triiodothyronine (T3) Free [Mass/volume] in Serum or Plasma T3, FREE Lab Routine Other fatigue Expected: 10/01/2024, Expires: 12/31/2024 [facility] Comment on above: Expected: 10/01/2024, Expires: Start: 09-29-2024 [facility] Start: 09-14-2024 End: 09-14-2024 Patient encounter procedure 09/14/2024 2:00 PM EDT Office Visit [facility] [place] [address] [place], [place] [address] Sher Hollingsworth APRN.[employer] [address] [place] [address] numbness and weakness [facility] [place] Comment on above: numbness and weakness Start: 08-30-2024 End: 08-30-2024 Patient encounter procedure Cardiology Comment on above: heart problems/ check up Start: 08-09-2024 End: 11-08-2024 C reactive protein [Mass/volume] in Serum or Plasma [facility] Comment on above: Expected: 08/09/2024, Expires: Start: 08-09-2024 End: 11-08-2024 Comprehensive metabolic 2000 panel - Serum or Plasma [facility] Work Phone: Comment on above: Expected: 08/09/2024, Expires: Start: 08-09-2024 End: 11-08-2024 Creatine kinase [Enzymatic activity/volume] in Serum or Plasma [facility] Comment on above: Expected: 08/09/2024, Expires: Start: 08-09-2024 End: 11-08-2024 Hemoglobin A1c in Blood [facility] Comment on above: Expected: 08/09/2024, Expires: Start: 08-09-2024 End: 08-09-2024 Patient encounter procedure 08/09/2024 10:20 AM EST Office Visit [facility] [place] [address] [place], [place] [id number] Kate Silva MD [address] [place], [place] [id number] 3 month follow up [facility] [place] Comment on above: 3 month follow up Start: 07-25-2024 Hemoglobin A1c measurement HbA1C [facility] Start: 06-06-2024 Covid-19 Vaccine (#1) Covid-19 Vaccine (#1) [facility] Comment on above: Postponed from 07/02/1999 (Declined at t his time) Start: 06-06-2024 Covid-19 Vaccine () Covid-19 Vaccine () [facility] Comment on above: Postponed from 02/28/2023 (Declined at t his time) Start: 04-30-2024 End: 07-30-2024 Microalbumin/Creatinine [Mass Ratio] in Urine [facility] Comment on above: Expected: 04/30/2024, Expires: Start: 04-30-2024 End: 04-30-2024 Patient encounter procedure 04/30/2024 1:00 PM EDT Office Visit [facility] [place] [address] [place], [place] [phone] Sher Hollingsworth APRN.[employer] [address] [place], [place] [id number] 6 week follow up [facility] [place] Comment on above: 6 week follow up Start: 04-16-2024 End: 07-16-2024 CBC W Auto Differential panel - Blood COMPLETE BLOOD COUNT AND DIFFERENTIAL Lab Routine Encounter for therapeutic drug monitoring Expected: 04/16/2024, Expires: 07/16/2024 [facility] Work Phone: Comment on above: Expected: 04/16/2024, Expires: Start: 04-16-2024 End: 07-16-2024 Comprehensive metabolic 2000 panel - Serum or Plasma COMPREHENSIVE METABOLIC PANEL Lab Routine Fatty liver Encounter for therapeutic drug monitoring Expected: 04/16/2024, Expires: 07/16/2024 [facility] Comment on above: Expected: 04/16/2024, Expires: Start: 04-16-2024 End: 07-16-2024 Hemoglobin A1c in Blood HEMOGLOBIN A1C Lab Routine Type 2 diabetes mellitus without complication, without long-term current use of insulin (HCC) Expected: 04/16/2024, Expires: 07/16/2024 [facility] Comment on above: Expected: 04/16/2024, Expires: Start: 04-16-2024 End: 07-16-2024 LIPID PANEL, NONFASTING LIPID PANEL, NONFASTING Lab Routine Type 2 diabetes mellitus without complication, without long-term current use of insulin (HCC) Screening for lipid disorders Expected: 04/16/2024, Expires: 07/16/2024 [facility] Comment on above: Expected: 04/16/2024, Expires: Start: 04-16-2024 End: 07-16-2024 Microalbumin/Creatinine [Mass Ratio] in Urine ALBUMIN/CREATININE RATIO, URINE Lab Routine Type 2 diabetes mellitus without complication, without long-term current use of insulin (HCC) Expected: 04/16/2024, Expires: 07/16/2024 [facility] Comment on above: Expected: 04/16/2024, Expires: Start: 03-19-2024 End: 03-19-2024 Patient encounter procedure 03/19/2024 10:00 AM EDT Office Visit Internal Medicine [address] [address] Sher Hollingsworth APRN.[employer] [address] [place] [address] 3 month follow up [facility] [place] Comment on above: 3 month follow up Start: 03-04-2024 End: 03-04-2024 Patient encounter procedure 03/04/2024 12:45 PM EDT Office Visit OB/Gynecology [address] [place] [address] Pat Ferrer APRN.[employer] [address] [place] [address] Diagnosed recently with DM-Hx recurrent yeast infections OB/Gynecology Comment on above: Diagnosed recently with DM-Hx recurrent yeast infections Start: 02-29-2024 Covid-19 Vaccine ( season) Covid-19 Vaccine () [facility] Start: 02-29-2024 Covid-19 Vaccine () Covid-19 Vaccine () [facility] Start: 02-29-2024 Influenza vaccination Influenza Vacc[facility] Start: 02-10-2024 End: 02-10-2024 Patient encounter procedure 02/10/2024 3:00 PM EDT Office Visit OB/Gynecology [address] [place] [address] Pat Ferrer, HARLAN.[employer] [address] [place] [address] yeast infection OB/Gynecology Comment on above: yeast infection Start: 02-02-2024 End: 02-02-2024 Patient encounter procedure 02/02/2024 2:15 PM EDT Office Visit Orthopaedics [address] [place] [address] Gerardo Crowe MD [address] [place] [address] Right hand pain [M79.641] Orthopaedics Comment on above: Right hand pain [M79.641] Start: 01-27-2024 End: 01-27-2024 Patient encounter procedure 01/27/2024 2:00 PM EDT Office Visit [facility] [place] [address] [place] [address] Sher Hollingsworth APRN.[employer] [address] [place] [address] diabetes f/u [facility] [place] Comment on above: diabetes f/u Start: 01-22-2024 End: 04-22-2024 TESTOSTERONE, FREE AND TOTAL TESTOSTERONE, FREE AND TOTAL Lab Routine Amenorrhea Expected: 01/22/2024, Expires: 04/22/2024 [facility] Work Phone: Comment on above: Expected: 01/22/2024, Expires: Start: 01-13-2024 End: 01-13-2024 ambulatory 01/13/2024 11:00 AM EDT Results Only [facility] [address] [place] [address] lab [facility] Comment on above: lab Start: 01-11-2024 CHLAMYDIA SCREENING (18-24) CHLAMYDIA SCREENING (18-24) [facility] Start: 01-11-2024 GC (GONORRHEA) SCREENING (18-24) GC (GONORRHEA) SCREENING (18-24) [facility] Start: 12-15-2023 End: 12-15-2023 Patient encounter procedure 12/15/2023 1:00 PM EDT Office Visit [facility] [place] [address] [place] [address] Sher Hollingsworth APRN.[employer] [address] [facility] [place] [address] 3 month follow up [facility] [place] Comment on above: 3 month follow up Start: 12-12-2023 End: 12-12-2023 Patient encounter procedure 12/12/2023 12:45 PM EDT Office Visit OB/Gynecology [address] [place] [address] Pat Ferrer APRN.[employer] [address] [place] [address] uti OB/Gynecology Comment on above: uti Start: 12-06-2023 PAP TESTING PAP TESTING [facility] Start: 12-06-2023 Screening for malignant neoplasm of cervix [facility] Start: 11-21-2023 End: 11-21-2023 Admission to same day surgery center 11/21/2023 10:00 AM EDT - 11/21/2023 11:00 AM EDT Surgery [facility] [address] [place] [address] Rasta Dumont MD, [address] [place], [place] [id number] PERCUTANEOUS NEEDLE BIOPSY OF LIVER [facility] Comment on above: PERCUTANEOUS NEEDLE BIOPSY OF LIVER Start: 11-21-2023 End: 11-21-2023 Biopsy liver needle percutaneous PERCUTANEOUS NEEDLE BIOPSY OF LIVER NAFLD (nonalcoholic fatty liver disease) Autoantibody titer positive 11/21/2023 10:00 AM EDT [facility] Start: 11-21-2023 Subsequent hospital visit by physician 11/21/2023 10:00 AM EDT Hospital Encounter [facility] [address] [place] [address] [place], [address] [employer] [address] [address] NAFLD (nonalcoholic fatty liver disease) [K76.0] [facility] Comment on above: NAFLD (nonalcoholic fatty liver disease) [K76.0] Start: 11-20-2023 CHLAMYDIA SCREENING (18-24) CHLAMYDIA SCREENING (18-24) [facility] Start: 11-20-2023 GC (GONORRHEA) SCREENING (18-24) GC (GONORRHEA) SCREENING (18-24) [facility] Start: 11-11-2023 End: 02-10-2024 CBC panel - Blood by Automated count COMPLETE BLOOD COUNT Lab Routine NAFLD (nonalcoholic fatty liver disease) Expected: 11/11/2023, Expires: 02/10/2024 [facility] Work Phone: Comment on above: Expected: 11/11/2023, Expires: Start: 11-11-2023 End: 02-10-2024 PT panel - Platelet poor plasma by Coagulation assay PROTHROMBIN TIME Lab Routine NAFLD (nonalcoholic fatty liver disease) Expected: 11/11/2023, Expires: 02/10/2024 [facility] Comment on above: Expected: 11/11/2023, Expires: Start: 10-22-2023 End: 01-21-2024 Comprehensive metabolic 2000 panel - Serum or Plasma COMPREHENSIVE METABOLIC PANEL Lab Routine NAFLD (nonalcoholic fatty liver disease) Expected: 10/22/2023, Expires: 01/21/2024 [facility] Work Phone: Comment on above: Expected: 10/22/2023, Expires: Start: 10-22-2023 End: 01-21-2024 Hepatitis B virus surface Ab [Presence] in Serum HEPATITIS B SURFACE ANTIBODY Lab Routine NAFLD (nonalcoholic fatty liver disease) Expected: 10/22/2023, Expires: 01/21/2024 [facility] Comment on above: Expected: 10/22/2023, Expires: Start: 10-22-2023 End: 01-21-2024 LIVER FIBROSIS AND ACTIVITY LIVER FIBROSIS AND ACTIVITY Lab Routine NAFLD (nonalcoholic fatty liver disease) Expected: 10/22/2023, Expires: 01/21/2024 [facility] Comment on above: Expected: 10/22/2023, Expires: Start: 10-22-2023 End: 01-21-2024 Smooth muscle Ab [Presence] in Serum SMOOTH MUSCLE AB SCR Lab Routine NAFLD (nonalcoholic fatty liver disease) Expected: 10/22/2023, Expires: 01/21/2024 [facility] Comment on above: Expected: 10/22/2023, Expires: Start: 07-17-2023 CHLAMYDIA SCREENING (18-24) CHLAMYDIA SCREENING (18-24) [facility] Start: 07-17-2023 GC (GONORRHEA) SCREENING (18-24) GC (GONORRHEA) SCREENING (1824) [facility] Start: 06-11-2023 Hepatitis B surface antibody level LDL Cholesterol [facility] Start: 04-22-2023 End: 07-22-2023 Hepatic function 2000 panel - Serum or Plasma [facility] Work Phone: Comment on above: Expected: 04/22/2023, Expires: 4 Start: 04-09-2023 End: 06-09-2023 Choriogonadotropin.beta subunit [Units/volume] in Serum or Plasma [facility] Work Phone: Comment on above: Expected: 04/09/2023, Expires: 3 Start: 04-09-2023 End: 06-09-2023 Estradiol (E2) [Mass/volume] in Serum or Plasma [facility] Work Phone: Comment on above: Expected: 04/09/2023, Expires: 3 Start: 04-09-2023 End: 06-09-2023 Follitropin [Units/volume] in Serum or Plasma [facility] Work Phone: Comment on above: Expected: 04/09/2023, Expires: 3 Start: 04-09-2023 End: 06-09-2023 Prolactin [Mass/volume] in Serum or Plasma [facility] Work Phone: Comment on above: Expected: 04/09/2023, Expires: 3 Start: 04-09-2023 End: 06-09-2023 Thyrotropin [Units/volume] in Serum or Plasma [facility] Work Phone: Comment on above: Expected: 04/09/2023, Expires: 3 Start: 02-28-2023 Influenza vaccination [facility] Start: 02-27-2023 CHLAMYDIA SCREENING (18-24) CHLAMYDIA SCREENING (18-24) [facility] Start: 02-27-2023 GC (GONORRHEA) SCREENING (18-24) GC (GONORRHEA) SCREENING (18-24) [facility] Start: 11-04-2022 End: 11-18-2022 Influenza virus A and B RNA and SARS-CoV-2 (COVID-19) N gene panel - Respiratory specimen by EDMOND with probe detection [facility] Work Phone: Comment on above: Expected: 11/04/2022, Expires: 3 Start: 10-30-2022 End: 10-30-2023 Cta hrt cornry art/bypass grfts contrst 3d post CTA CORONARY W IVCON Radiology Routine Precordial pain Expected: 10/30/2022, Expires: 10/30/2023 [facility] Work Phone: Comment on above: Expected: 10/30/2022, Expires: 4 Start: 10-28-2022 End: 12-28-2022 HIV 1+2 Ab [Presence] in Serum or Plasma by Immunoassay HIV 1 2 COMBO(AG/AB),WITH REFLEX TO DIFFERENTIATION Lab Routine Screening for HIV (human immunodeficiency virus) Expected: 10/28/2022, Expires: 12/28/2022 [facility] Work Phone: Comment on above: Expected: 10/28/2022, Expires: 3 Start: 10-07-2022 End: 10-01-2023 Echocardiography ECHO Cardiology Routine Precordial pain Expected: 10/07/2022, Expires: 10/01/2023 [facility] Work Phone: Comment on above: Expected: 10/07/2022, Expires: 4 Start: 10-03-2022 End: 12-03-2022 Alanine aminotransferase [Enzymatic activity/volume] in Serum or Plasma ALT/SGPT Lab Routine Abnormal laboratory test Expected: 10/03/2022 (Approximate), Expires: 12/03/2022 [facility] Work Phone: Comment on above: Expected: 10/03/2022 (Approximate), Expi res: 12/03/2022 Start: 10-03-2022 End: 12-03-2022 Aspartate aminotransferase [Enzymatic activity/volume] in Serum or Plasma AST/SGOT BLD Lab Routine Abnormal laboratory test Expected: 10/03/2022 (Approximate), Expires: 12/03/2022 [facility] Work Phone: Comment on above: Expected: 10/03/2022 (Approximate), Expi res: 12/03/2022 Start: 08-22-2022 End: 10-22-2022 FISH FOR BCR/ABL1 [facility] Work Phone: Comment on above: Expected: 08/22/2022, Expires: 3 Start: 08-22-2022 End: 10-22-2022 FLOW CYTOMETRY PERIPHERAL BLOOD LEUK/LYMPH (FCLEUK) [facility] Work Phone: Comment on above: Expected: 08/22/2022, Expires: Start: 08-22-2022 End: 10-22-2022 MYELOPROLIFERATIVE NEOPLASM PANEL BLOOD [facility] Work Phone: Comment on above: Expected: 08/22/2022, Expires: 3 Start: 08-21-2022 CHLAMYDIA SCREENING (18-24) CHLAMYDIA SCREENING (18-24) [facility] Start: 08-21-2022 GC (GONORRHEA) SCREENING (18-24) GC (GONORRHEA) SCREENING (18-24) [facility] Start: 08-07-2022 End: 10-07-2022 25-hydroxyvitamin D3 [Mass/volume] in Serum or Plasma [facility] Work Phone: Comment on above: Expected: 08/07/2022, Expires: 3 Start: 08-07-2022 End: 10-07-2022 CBC W Auto Differential panel - Blood [facility] Work Phone: Comment on above: Expected: 08/07/2022, Expires: 3 Start: 08-07-2022 End: 10-07-2022 Cobalamin (Vitamin B12) [Mass/volume] in Serum or Plasma [facility] Work Phone: Comment on above: Expected: 08/07/2022, Expires: 3 Start: 08-07-2022 End: 10-07-2022 Hepatic function 2000 panel - Serum or Plasma [facility] Work Phone: Comment on above: Expected: 08/07/2022, Expires: 3 Start: 08-07-2022 End: 10-07-2022 Iron and Iron binding capacity panel - Serum or Plasma [facility] Work Phone: Comment on above: Expected: 08/07/2022, Expires: 3 Start: 08-07-2022 End: 10-07-2022 Thyrotropin [Units/volume] in Serum or Plasma [facility] Work Phone: Comment on above: Expected: 08/07/2022, Expires: 3 Start: 06-11-2022 End: 08-11-2022 Alpha 1 antitrypsin [Mass/volume] in Serum or Plasma [id number] Lab Routine Fatty liver Elevated LFTs Expected: 06/11/2022, Expires: 08/11/2022 [facility] Work Phone: Comment on above: Expected: 06/11/2022, Expires: 3 Start: 06-11-2022 End: 08-11-2022 Ceruloplasmin [Mass/volume] in Serum or Plasma CERULOPLASMIN BLD Lab Routine Fatty liver Elevated LFTs Expected: 06/11/2022, Expires: 08/11/2022 [facility] Work Phone: Comment on above: Expected: 06/11/2022, Expires: 3 Start: 06-11-2022 End: 08-11-2022 Ferritin [Mass/volume] in Serum or Plasma FERRITIN BLD Lab Routine Fatty liver Elevated LFTs Expected: 06/11/2022, Expires: 08/11/2022 [facility] Work Phone: Comment on above: Expected: 06/11/2022, Expires: 3 Start: 06-11-2022 End: 08-11-2022 Hemoglobin A1c in Blood HGB A1C Lab Routine Fatty liver Elevated LFTs Expected: 06/11/2022, Expires: 08/11/2022 [facility] Work Phone: Comment on above: Expected: 06/11/2022, Expires: 3 Start: 06-11-2022 End: 08-11-2022 HEPATITIS A ANTIBODY, IGG HEPATITIS A ANTIBODY, IGG Lab Routine Fatty liver Elevated LFTs Expected: 06/11/2022, Expires: 08/11/2022 [facility] Work Phone: Comment on above: Expected: 06/11/2022, Expires: 3 Start: 06-11-2022 End: 08-11-2022 Hepatitis B virus core Ab [Presence] in Serum HEP B CORE AB TOTAL Lab Routine Fatty liver Elevated LFTs Expected: 06/11/2022, Expires: 08/11/2022 [facility] Work Phone: Comment on above: Expected: 06/11/2022, Expires: 3 Start: 06-11-2022 End: 08-11-2022 Hepatitis B virus surface Ag [Presence] in Serum HEP B SURF AG SCRN Lab Routine Fatty liver Elevated LFTs Expected: 06/11/2022, Expires: 08/11/2022 [facility] Work Phone: Comment on above: Expected: 06/11/2022, Expires: 3 Start: 06-11-2022 End: 08-11-2022 Hepatitis C virus Ab [Presence] in Serum HEP C AB IA W/CONF SCRN Lab Routine Fatty liver Elevated LFTs Expected: 06/11/2022, Expires: 08/11/2022 [facility] Work Phone: Comment on above: Expected: 06/11/2022, Expires: 3 Start: 06-11-2022 End: 08-11-2022 Lipid 1996 panel - Serum or Plasma LIPID PANEL BASIC Lab Routine Fatty liver Elevated LFTs Expected: 06/11/2022, Expires: 08/11/2022 [facility] Work Phone: Comment on above: Expected: 06/11/2022, Expires: 3 Start: 06-11-2022 End: 08-11-2022 LIVER FIBROSIS AND ACTIVITY LIVER FIBROSIS AND ACTIVITY Lab Routine Fatty liver Elevated LFTs Expected: 06/11/2022, Expires: 08/11/2022 [facility] Work Phone: Comment on above: Expected: 06/11/2022, Expires: 3 Start: 06-11-2022 End: 08-11-2022 Mitochondria Ab [Presence] in Serum by Immunofluorescence MITOCHONDRIAL M2 IGG SERUM Lab Routine Fatty liver Elevated LFTs Expected: 06/11/2022, Expires: 08/11/2022 [facility] Work Phone: Comment on above: Expected: 06/11/2022, Expires: 3 Start: 06-11-2022 End: 08-11-2022 Smooth muscle Ab [Presence] in Serum SMOOTH MUSCLE AB SCR Lab Routine Fatty liver Elevated LFTs Expected: 06/11/2022, Expires: 08/11/2022 [facility] Work Phone: Comment on above: Expected: 06/11/2022, Expires: 3 Start: 04-12-2022 End: 06-12-2022 Alanine aminotransferase [Enzymatic activity/volume] in Serum or Plasma ALT/SGPT Lab Routine Abnormal laboratory test Expected: 04/12/2022 (Approximate), Expires: 06/12/2022 [facility] Work Phone: Comment on above: Expected: 04/12/2022 (Approximate), Expi res: 06/12/2022 Start: 04-12-2022 End: 06-12-2022 Aspartate aminotransferase [Enzymatic activity/volume] in Serum or Plasma AST/SGOT BLD Lab Routine Abnormal laboratory test Expected: 04/12/2022 (Approximate), Expires: 06/12/2022 [facility] Work Phone: Comment on above: Expected: 04/12/2022 (Approximate), Expi res: 06/12/2022 Start: 04-12-2022 End: 06-12-2022 Erythrocyte sedimentation rate SED RATE WESTERGREN Lab Routine Abnormal laboratory test Expected: 04/12/2022 (Approximate), Expires: 06/12/2022 [facility] Work Phone: Comment on above: Expected: 04/12/2022 (Approximate), Expi res: 06/12/2022 Start: 04-11-2022 Plain chest X-ray Chest PA and Lateral [facility] Work Phone: Start: 04-11-2022 XR Chest PA and Lateral [facility] Work Phone: Start: 04-09-2022 Meningococcal B Vaccine: Consider Based On Risk (2 of 2 - Risk Bexsero 2-dose series) Meningococcal B Vaccine: Consider Based On Risk (2 of 2 - Risk Bexsero 2-dose series) [facility] Start: 04-09-2022 MENINGOCOCCAL B: Consider based on risk (2 of 2 - Risk Bexsero 2-dose series) MENINGOCOCCAL B: Consider based on risk (2 of 2 - Risk Bexsero 2-dose series) [facility] Start: 02-28-2022 Influenza vaccination [facility] Start: 03-20-2020 Urine microalbumin profile [facility] Start: 09-09-2019 Adult depression screening assessment DEPRESSION SCREENING [facility] Start: 2016 HEPATITIS C SCREENING HEPATITIS C SCREENING [facility] Start: 2016 HIV SCREENING HIV SCREENING [facility] Start: 07-04-2016 Glaucoma screening Dilated Retinal Exam [facility] Start: 2012 PEDS TO ADULT TRANSITION ANNUAL ASSESSMENT PEDS TO ADULT TRANSITION ANNUAL ASSESSMENT [facility] Start: 2010 PEDS TO ADULT TRANSITION INITIAL DISCUSSION PEDS TO ADULT TRANSITION INITIAL DISCUSSION [facility] Start: 2008 Diabetic foot examination Diabetic Foot Exam [facility] Start: 2008 Hepatitis B screening Urine Albumin:Creatinine Ratio [facility] Start: 2008 MENINGOCOCCAL B: Consider based on risk (1 of 2 - Risk Bexsero 2-dose series) MENINGOCOCCAL B: Consider based on risk (1 of 2 - Risk Bexsero 2-dose series) [facility] Start: 2004 PNEUMOCOCCAL (1 - PCV) PNEUMOCOCCAL (1 - PCV) [facility] Start: 2004 Pneumococcal vaccination Pneumococcal Vaccine (1 of 2 - PCV) [facility] Start: 12-31-2003 COVID-19 VACCINE (#1) COVID-19 VACCINE (#1) [facility] Start: 12-31-2003 COVID-19 VACCINE (1) COVID-19 VACCINE (1) [facility] Start: 07-02-1999 COVID-19 VACCINE (#1) COVID-19 VACCINE (#1) [facility] Start: 07-02-1999 HEPATITIS B (4 of 4 - 4-dose series) HEPATITIS B (4 of 4 - 4-dose series) [facility] Bacteria identified in Urine by Culture URINE CULTURE Microbiology Routine Abnormal urination Ordered: 02/27/2022 [facility] Work Phone: Comment on above: Ordered: 02/27/2022 Bacteria identified in Urine by Culture URINE CULTURE Microbiology Routine Dysuria 08/11/2023 11:04 AM EST [facility] Work Phone: Bacteria identified in Urine by Culture URINE CULTURE Microbiology Routine Urinary frequency 04/30/2024 1:48 PM EDT [facility] BACTERIAL VAGINOSIS AMPLIFICATION BACTERIAL VAGINOSIS AMPLIFICATION Lab Routine Acute vaginitis Ordered: 02/27/2022 [facility] Work Phone: Comment on above: Ordered: 02/27/2022 BACTERIAL VAGINOSIS NAAT BACTERI AL VAGINOSIS NAAT Lab Routine Vaginal discharge Ordered: 01/10/2023 [facility] Work Phone: Comment on above: Ordered: 01/10/2023 BACTERIAL VAGINOSIS NAAT BACTERI AL VAGINOSIS NAAT Lab Routine Vaginal odor 05/14/2023 11:51 AM EST [facility] Work Phone: BACTERIAL VAGINOSIS NAAT BACTERI AL VAGINOSIS NAAT Lab Routine Vaginal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 beats. Echocardiogram showed normal cardiac function. - Continue monitoring heart rate. - Follow-up with cardiology appointment on March 31. 5. Type 2 diabetes mellitus without complication, without long-term current use of insulin (HCC) (E11.9) Well-controlled with Trulicity; recent A1c is 4.9%. Patient has lost 24 pounds since last visit. - Continue current Trulicity regimen. - Monitor blood glucose levels. Portions of this note have been entered by ancillary staff. I have reviewed and when necessary edited, so that they are an adequate record of my encounter with this patient Please note that parts of this document were created using voice recognition software and therefore may contain grammatical errors. Patient verbalizes understanding of instructions from today's visit and in agreement with treatment plan. Questions answered. Agrees to call the office if questions, concerns of issues with acute symptoms not improving or if they worsen. See diagnoses and orders for additional plan(s). Allergies and medications were reviewed, list was updated, and refills given if needed. Past medical, surgical, social, and family history reviewed and updated as appropriate. Encouraged proper diet & exercise as well as compliance with taking medications. Age-appropriate health preventative measures were discussed. Return if symptoms worsen or fail to improve, for Keep next scheduled appointment.. Sher Hollingsworth APRN-MERLIN documented in this encounter [facility] 10-25-2024 Radiology Diagnostic study note [facility] Imaging Services [address] [place] [address] Chest 1 View (Portable) MR#: [id number] Acct: [id number] Name: KATIE FORDE Rep #: [id number] : 2000 F 23 From: Naren Oakes MD PCP: Dr. Kate Silva MD Status: RE G ER Study:Chest 1 View (Portable) Date of Exam: 10/25/24 Exam# [id number] Ordering Dr: Pérez Ren MD PROCEDURE: CHEST 1 VIEW (PORTABLE) 10/25/2024 REASON FOR EXAM: PALPITATIONS TECHNIQUE: Frontal view of the chest. COMPARISON: 09/29/2024 FINDINGS: Patient is rotated to the right. The lungs appear clear. Pulmonary vascularityappears within limits. No evidence of pleural effusion. The cardiac and mediastinal contours appear within limits. The visualized osseous structures appear within limits. RAD/Chest 1 View (Portable) IMPRESSION: No evidence of acute disease. Reading Location: [id number] CC: Dr. Pérez Ren MD; Dr. Kate Silva MD ~ [facility]: Signed [facility] 10-22-2024 Note HNO ID: [id number] Author: ESTRELLITA KUMAR APRN.CNP Service: ? Author Type: Nurse Practitioner Type: Progress Notes Filed: 10/22/2024 09:30 Note Text: [facility] [place] New Patient Evaluation This visit was conducted via virtual platform. I have communicated my name and active licensure. The patient's identity and physical location were verified at the time of this visit. Either the patient or their legal territory service representative has been informed of the risks and benefits of -- and alternatives to -- treatment through a remote evaluation and consents to proceed with the evaluation remotely. CHIEF COMPLAINT: N/t Katie Forde is a 23 year old accompanied by self. Consult was requested by Kate Silva MD for an opinion regarding above CC. My final impression and recommendations will be communicated back to the requesting physician by way of the shared medical record or fax. October 22, 2024 HPI: Ms. Forde presents today secondary to issues of n/t. Has been getting lightheadedness and depersonalization. Lightheadedness kind of went away. Per ED note on 10/06/24: Presents to the ED for evaluation of recurrent symptoms. Here with mother reports for the last month intermittent lightheaded symptoms is worsening. No chest pains no shortness of breath. She states will have occasional abdominal discomfort and nausea. She has had generalized paresthesias however the day noted numbness on the left side of her body including her torso. There is no weakness. Denies headache or dizziness. She reports she was here 7 days ago and evaluated. She said multiple testing with EKGs and lab work. No CT brain. Mother patient denies any family history of multiple sclerosis. She reports heart rate normally 90s to 102 recently noticed in the 60s. Follow-up with her PCP 2 days after her visit she was put on Antivert for viral vertigo. She denies any dizzy spinning sensations. She states she has the feelings of depersonalization. Prior to a month ago no similar symptoms. She reports only thing total lab work with white count that was elevated. Denies cough or denies urinary symptoms. Prior similar symptoms: Yes ED course: Patient intermittent changes reported paresthesias now in left side subjectively. There is no weakness. Lightheaded symptoms EKG ordered will check basic labs will obtain CT brain. CT brain no acute process EKG sinus rhythm no acute findings. 2224: Labs white count 16.7 trending up from previous labs thyroid screening normal electrolytes normal. Mother states no history of blood disorders or leukemia. However she will be referred to hematology for trending of white count. Discussed nonspecific paresthesia with multiple sclerosis in the differential. She is referred to neurology for further evaluation. Weakness and numbness started about one year ago. Gradually over time. Throughout whole body but sometimes only on L. Feels arms are weaker than legs. Feels this mostly when lifting hands. Sx come and go. Happens a couple times per month. Usually lasts a couple hours. No falls because of weakness. Not tripping over feet. When she started to note weakness that is when numbness and tingling started. Not always associated with weakness. N/t is more frequent than weakness. Happens often. Dropped a hose on her foot and thought maybe nerve damage but states she was told this would only be her foot. Usually throughout the whole body; not face. Usually legs and arms. Throughout entire extremity. Can last about 1-2 hours. Sx have to go away on their own; has to go to sleep. No associated headache. No loss of stool/urine. If sitting too long can have numbness to groin. Can also happen on long car ride. Lightheadedness started one month ago. Has gotten better; only mild now. This was worse when laying down. Initially felt to be vertigo. No spinning. No LOC but once felt she could pass out. Was in public and had to go outside; thought maybe could be panic attack. Redig lightheaded then. Depersonalization chronic. Feels like she is always out of her body like she is watching herself in a movie. Has not had since initial dx. Has been for a month straight. Sometimes stares off not responding; usually doesn't last long. No lost periods of time. Not forgetting how she got something. No seizure history. No vision changes, speech changes. She has a hx of ESTEBAN. Was sleeping well but since sx began one month ago she couldn't sleep. Every time she would lie down sx became worse. Feels like it is hard to do activities d/t fatigue. Uses PAP nightly. Has had for 2 years. Has been using extra masks from dad's friend. Following with Dr. Jett. She has a hx of migraines. Happen when it gets very hot out. Triggered by using different pillow. She is taking Maxalt as needed. Tries not to take unless sx are severe. Tries to take Excedrin. No aura. No vision change. + photo/phonophobi (more content not included)... [facility] 10-20-2024 Note HNO ID: [id number] Author: KATE SILVA MD Service: ? Author Type: Physician Type: Progress Notes Filed: 11/15/2024 00:43 Note Text: This note was created using [employer]. Subjective Katie Forde is a 23 year old female. Patient presents with: ED Follow-up: lightheadedness, fatgiue x 1 month Katie is a 23-year-old female with a history of leukocytosis, depression, and anxiety, presenting with persistent fatigue, lightheadedness, and a recent onset of cough. Katie reports persistent fatigue and lightheadedness since the beginning of September, which have led to three ER visits: two at [facility] and one at [facility]. She notes that the lightheadedness has improved, but she continues to experience significant fatigue, describing it as really tired, like no matter how much I sleep, I'm really tired and I don't want to do anything. She also reports ongoing depersonalization and frequent palpitations. The symptoms were severe enough to prompt the ER visits, with Katie stating, It just got really bad that night, I'm like, I can't do this. During her ER visits, she was informed that her white blood cell count was elevated, with the most recent count at 17.5. She notes that her manufacturing process engineer is not concerned about the elevated count, stating that Katie's white blood cell count has always been semi-high. She was advised to take a baby aspirin, which she has taken a couple of times but not consistently. Katie also reports a recent onset of a cough that has been present for three days, which she describes as horrible and keeps her up at night. She has not taken any medication for the cough and denies any wheezing or tightness. She also reports a sore throat secondary to the cough. In addition to her physical symptoms, Katie reports worsening depression and anxiety, stating, It gets to the point where I don't want to do anything, and like, my whole body starts shaking, I start panicking. She also reports experiencing panic attacks, particularly in dark rooms, which she previously tolerated well. She has a history of depression and anxiety and has been seen at the [facility] in the past. She denies any suicidal or homicidal ideation. Katie also reports issues with dandruff, describing it as so bad to the point, like, I'm embarrassed. She notes the presence of random bumps on her scalp and flaking. PAST MEDICAL HISTORY Diagnosis Date ADHD (attention deficit hyperactivity disorder) Fatty liver GERD (gastroesophageal reflux disease) Marfan's syndrome (HCC) VIRAL WARTS NOS 06/25/2008 resolved Current Outpatient Medications Medication Sig clobetasol (TEMOVATE) 0.05 % cream Apply to affected area 2x/day for 2 weeks, then 1x/day for a week, than 1-3x/week for maintenance. meclizine (ANTIVERT) 25 mg tab Take 1 tablet by mouth three times a day as needed (for dizziness.vertigo.). rizatriptan (MAXALT) 10 mg tablet Take 1 tablet by mouth as needed for migraine headache (see administration instructions). May repeat dose after 2 hours if needed. Maximum daily dose is 30 mg per day. triamcinolone acetonide (KENALOG) 0.1 % cream Apply to affected area two times a day as needed. May use for up to 14 days per rash omeprazole (PRILOSEC) 20 mg capsule Take 1 capsule by mouth once daily. On empty stomach at least 30 minutes before eating. Blood-Glucose Meter 1 Device as directed. For once daily testing blood sugar diagnostic (BLOOD GLUCOSE TEST) test strip Test blood sugar(s) one times daily. Dx: Type 2 DM - Controlled E11.9 Insulin: No Lancets Test blood sugar(s) one times daily. Dx: Type 2 DM - Controlled E11.9 Insulin: No Norethindrone, Contraceptive, (SELMA) 0.35 mg tablet Take 1 tablet by mouth once daily. CPAP/BIPAP/OTHER Type .CPAPSettings into a note to see current settings/supplies/DME information. ondansetron orally disintegrating (ZOFRAN ODT) 4 mg disintegrating tablet Take 1 tablet by mouth every 8 hours as needed for nausea/vomiting. dulaglutide (TRULICITY) 0.75 mg/0.5 mL pen injector Inject 0.75 mg subcutaneously one time a week. LORazepam (ATIVAN) 1 mg tablet Take 1 tablet by mouth three times a day as needed for anxiety for up to 30 days. propranolol (INDERAL) 20 mg tablet Take 1 tablet by mouth three times a day as needed (for heart rate over 100). QUEtiapine (SEROQUEL) 25 mg tablet Take 1-2 tablets by mouth daily at bedtime. albuterol HFA (PROVENTIL HFA, VENTOLIN HFA) 90 mcg/actuation inhaler Inhale 2 puffs as instructed every 4 hours as needed for wheezing/shortness of breath. ketoconazole (NIZORAL) 2 % shampoo Apply to affected area two times a week. [START ON 11/19/2024] amphetamine-dextroamphetamine XR (ADDERALL XR) 30 mg capsule Take 1 capsule by mouth every morning for 30 days. Patient should start on November 19, 2024. amphetamine-dextroamphetamine XR (ADDERALL XR) 30 mg capsule Take 1 ca (more content not included)... [facility] 10-20-2024 History of Present illness Narrative This note was created using GMEX. Subjective Katie Forde is a 23 year old female. Patient presents with: ED Follow-up: lightheadedness, fatgiue x 1 month Katie is a 23-year-old female with a history of leukocytosis, depression, and anxiety, presenting with persistent fatigue, lightheadedness, and a recent onset of cough. Katie reports persistent fatigue and lightheadedness since the beginning of September, which have led to three ER visits: two at [facility] and one at [facility]. She notes that the lightheadedness has improved, but she continues to experience significant fatigue, describing it as really tired, like no matter how much I sleep, I'm really tired and I don't want to do anything. She also reports ongoing depersonalization and frequent palpitations. The symptoms were severe enough to prompt the ER visits, with Katie stating, It just got really bad that night, I'm like, I can't do this. During her ER visits, she was informed that her white blood cell count was elevated, with the most recent count at 17.5. She notes that her manufacturing process engineer is not concerned about the elevated count, stating that Katie's white blood cell count has always been semi-high. She was advised to take a baby aspirin, which she has taken a couple of times but not consistently. Katie also reports a recent onset of a cough that has been present for three days, which she describes as horrible and keeps her up at night. She has not taken any medication for the cough and denies any wheezing or tightness. She also reports a sore throat secondary to the cough. In addition to her physical symptoms, Katie reports worsening depression and anxiety, stating, It gets to the point where I don't want to do anything, and like, my whole body starts shaking, I start panicking. She also reports experiencing panic attacks, particularly in dark rooms, which she previously tolerated well. She has a history of depression and anxiety and has been seen at the [facility] in the past. She denies any suicidal or homicidal ideation. Katie also reports issues with dandruff, describing it as so bad to the point, like, I'm embarrassed. She notes the presence of random bumps on her scalp and flaking. PAST MEDICAL HISTORY Diagnosis Date ADHD (attention deficit hyperactivity disorder) Fatty liver GERD (gastroesophageal reflux disease) Marfan's syndrome (HCC) VIRAL WARTS NOS 06/25/2008 resolved Current Outpatient Medications Medication Sig clobetasol (TEMOVATE) 0.05 % cream Apply to affected area 2x/day for 2 weeks, then 1x/day for a week, than 1-3x/week for maintenance. meclizine (ANTIVERT) 25 mg tab Take 1 tablet by mouth three times a day as needed (for dizziness.vertigo.). rizatriptan (MAXALT) 10 mg tablet Take 1 tablet by mouth as needed for migraine headache (see administration instructions). May repeat dose after 2 hours if needed. Maximum daily dose is 30 mg per day. triamcinolone acetonide (KENALOG) 0.1 % cream Apply to affected area two times a day as needed. May use for up to 14 days per rash omeprazole (PRILOSEC) 20 mg capsule Take 1 capsule by mouth once daily. On empty stomach at least 30 minutes before eating. Blood-Glucose Meter 1 Device as directed. For once daily testing blood sugar diagnostic (BLOOD GLUCOSE TEST) test strip Test blood sugar(s) one times daily. Dx: Type 2 DM - Controlled E11.9 Insulin: No Lancets Test blood sugar(s) one times daily. Dx: Type 2 DM - Controlled E11.9 Insulin: No Norethindrone, Contraceptive, (SELMA) 0.35 mg tablet Take 1 tablet by mouth once daily. CPAP/BIPAP/OTHER Type .CPAPSettings into a note to see current settings/supplies/DME information. ondansetron orally disintegrating (ZOFRAN ODT) 4 mg disintegrating tablet Take 1 tablet by mouth every 8 hours as needed for nausea/vomiting. dulaglutide (TRULICITY) 0.75 mg/0.5 mL pen injector Inject 0.75 mg subcutaneously one time a week. LORazepam (ATIVAN) 1 mg tablet Take 1 tablet by mouth three times a day as needed for anxiety for up to 30 days. propranolol (INDERAL) 20 mg tablet Take 1 tablet by mouth three times a day as needed (for heart rate over 100). QUEtiapine (SEROQUEL) 25 mg tablet Take 1-2 tablets by mouth daily at bedtime. albuterol HFA (PROVENTIL HFA, VENTOLIN HFA) 90 mcg/actuation inhaler Inhale 2 puffs as instructed every 4 hours as needed for wheezing/shortness of breath. ketoconazole (NIZORAL) 2 % shampoo Apply to affected area two times a week. [START ON 11/19/2024] amphetamine-dextroamphetamine XR (ADDERALL XR) 30 mg capsule Take 1 capsule by mouth every morning for 30 days. Patient should start on November 19, 2024. amphetamine-dextroamphetamine XR (ADDERALL XR) 30 mg capsule Take 1 capsule by mouth every morning for 30 days. methylphenidate (RITALIN) 20 mg tablet Take 1 tablet by mouth as needed for up to 30 days. Take at approx. 3-4 pm. [START ON 11/19/2024] methylphenidate (RITALIN) 20 mg tablet Take 1 tablet by mouth as needed for up to 30 days. Take at approx. 3-4 pm. Patient should start on November 19, 2024. [START ON 12/19/2024] methylphenidate (RITALIN) 20 mg tablet Take 1 tablet by mouth as needed for up to 30 days. Take at approx. 3-4 pm. Patient should start on December 19, 2024. [START ON 12/19/2024] amphetamine-dextroamphetamine XR (ADDERALL XR) 30 mg capsule Take 1 capsule by mouth every morning for 30 days. Patient should start on December 19, 2024. No current facility-administered medications for this visit. Review of Systems Objective BP 118/70 (BP Site: Right Arm, BP Position: Sitting, BP Cuff Size: Large Adult) Pulse 95 Temp 37.2 C (99 F) (Temporal) Resp 14 Ht 182.9 cm (6') Wt 133.8 kg (294 lb 15.6 oz) LMP 09/28/2024 (Approximate) SpO2 98% BMI 40.01 kg/m Last 5 Encounter Wt Readings: Date: Wt: 10/20/2024 133.8 kg (294 lb 15.6 oz) 10/11/2024 134.7 kg (297 lb) 10/11/2024 133.5 kg (294 lb 6.4 oz) 10/01/2024 133.2 kg (293 lb 10.4 oz) 08/30/2024 135.6 kg (299 lb) No waist measurement recorded Estimated body mass index is 40.01 kg/m as calculated from the following: Height as of this encounter: 182.9 cm (6'). Weight as of this encounter: 133.8 kg (294 lb 15.6 oz). Last 5 Encounter BP Readings: Date: BP: 10/20/2024 118/70 10/11/2024 114/77 10/11/2024 100/66 10/01/2024 110/64 08/30/2024 118/74 Physical Exam Constitutional: Appearance: Normal appearance. HENT: Head: Normocephalic. Eyes: Conjunctiva/sclera: Conjunctivae normal. Cardiovascular: Rate and Rhythm: Normal rate and regular rhythm. Heart sounds: Normal heart sounds. Pulmonary: Effort: Pulmonary effort is normal. No respiratory distress. Breath sounds: Wheezing (when coughing) present. No rales. Skin: General: Skin is warm and dry. Neurological: General: No focal deficit present. Mental Status: She is alert and oriented to person, place, and time. Psychiatric: Mood and Affect: Mood normal. Behavior: Behavior normal. Thought Content: Thought content normal. Judgment: Judgment normal. Assessment and Plan # Acute bronchitis, unspecified organism (J20.9) - Cough with wheezing and bronchospasm on exam; no crackles indicative of pneumonia. - Prescribed albuterol inhaler with spacer; instructed on use and potential side effects including transient tachycardia. - Prescribed Tessalon Perles 30 capsules; advised to take morning and bedtime, and as needed during the day. - Discussed viral etiology; no antibiotics prescribed. # Lightheaded (R42) # Dizziness (R42) - Symptoms may be related to elevated WBC and platelet counts. - Advised to monitor blood pressure at home; instructed on proper technique. - Recommended hydration with electrolytes; advised to drink 1-2 bottles of electrolyte-rich fluids daily. - Initiated baby aspirin 81 mg daily to address potential inflammatory component. # Moderate episode of recurrent major depressive disorder (HCC) (F33.1) # Generalized anxiety disorder with panic attacks (F41.1) - Symptoms of depression and anxiety with panic attacks; exacerbated by current illness. - Facilitated referral to [facility] for psychological evaluation and therapy. # Dandruff (L21.0) # Seborrheic dermatitis (L21.9) - Prescribed Nizoral shampoo to be used twice weekly; advised to use regular shampoo on other days. # Attention deficit hyperactivity disorder (ADHD), combined type (F90.2) - Refilled Ritalin and Adderall prescriptions; sent to [facility]. Kate Silva MD Recording using Camerama software for draft documentation of the visit was discussed with the patient/authorized territory service representative; all questions welcomed and answered. Patient/authorized territory service representative agreed to proceed documented in this encounter [facility] 10-14-2024 Telephone encounter Note Patient notified. Kristin Newby RN The following approved medication requests have been transmitted electronically. Requested Prescriptions Signed Prescriptions Disp Refills clobetasol (TEMOVATE) 0.05 % cream 60 g 0 Sig: Apply to affected area 2x/day for 2 weeks, then 1x/day for a week, than 1-3x/week for maintenance. Pharmacy Information Pharmacy Address [phone] [place] [address] [facility] 10-14-2024 Miscellaneous Notes Patient notified. Kristin Newby RN The following approved medication requests have been transmitted electronically. Requested Prescriptions Signed Prescriptions Disp Refills clobetasol (TEMOVATE) 0.05 % cream 60 g 0 Sig: Apply to affected area 2x/day for 2 weeks, then 1x/day for a week, than 1-3x/week for maintenance. Pharmacy Information Pharmacy Address [phone] [place] [address] Left message to call office. Ximena Rodriguez RN Please let the pt know that her biopsy shows Lichen simplex chronicus. This is just chronic inflammation of the tissue. I will send in Clobetasol cream every day, 2x/day for 14 days. Then 3x/week consistently. Pat Ferrer APRN.CNP documented in this encounter [facility] 10-14-2024 Telephone encounter Note Left message to call office. Ximena Rodriguez RN [facility] 10-14-2024 Telephone encounter Note Please let the pt know that her biopsy shows Lichen simplex chronicus. This is just chronic inflammation of the tissue. I will send in Clobetasol cream every day, 2x/day for 14 days. Then 3x/week consistently. Pat Ferrer APRN.CNP [facility] 10-14-2024 Note . MICRO - Microbiology PROCEDURE: Urine Culture [O1 *1] SOURCE: Urine BODY SITE: COLLECTED DATE/TIME: 10/13/2024 01:24 EDT RECEIVED DATE/TIME: 10/13/2024 16:04 EDT START DATE/TIME: 10/13/2024 16:04 EDT FREE TEXT SOURCE: FINAL REPORTS Final Report [] Verified Date/Time/Personnel: 10/14/2024 14:27 EDT 10,000 - 50,000 cfu/ml Mixed growth consistent with normal urogenital ilana. PRELIMINARY REPORTS Preliminary Report [] Verified Date/Time/Personnel: 10/13/2024 16:59 EDT Specimen received in lab. Order Comments O1: Urine Culture Added by Discern Performing Locations *1: This test was performed at: [facility], [address] [place] [address], [facility] , [facility] 10-11-2024 Note HNO ID: [id number] Author: GOPAL YANEZ MD Service: ? Author Type: Physician Type: Progress Notes Filed: 10/11/2024 16:21 Note Text: (Elements copied from my note dated January 13, 2023, have been reviewed and updated where appropriate, and all reflect current assessment and medical decision making from today's encounter, October 11, 2024) HISTORY OF PRESENT ILLNESS: Katie Forde is a 22 year old female here for follow up of leukocytosis, thrombocytosis. Labs reviewed, prior work up. No changes to report Referred back to me by [facility], she's been seen for out of body feelings, severe anxiety. They noted leukocytosis and referred back. We had a chat about what she is experiencing she does get migraines. We note thrombocytosis, her MPN was negative.. CLINICAL IMPRESSION: Leukocytosis, thrombocytosis, suspect reactive. ?some serotonin mediated issue RECOMMENDATION/PLAN: 1. Trial of baby aspirin one a day, she'll send a mychart in 1-2 weeks to let me know if she feels better. Written and verbal health teaching given to patient, patient verbalizes understanding and agrees with treatment plan. PAST MEDICAL HISTORY Diagnosis Date ADHD (attention deficit hyperactivity disorder) Fatty liver GERD (gastroesophageal reflux disease) Marfan's syndrome (HCC) VIRAL WARTS NOS 06/25/2008 resolved PAST SURGICAL [...] Social History Tobacco Use Smoking status: Former Current packs/day: 0.00 Types: Cigarettes Quit date: 2021 Years since quittin.2 Smokeless tobacco: Never Tobacco comments: Pt smoked 3 cigarettes daily x 2 months, quit 2021 Pt vapes Vaping Use Vaping status: current everyday user Substances: Nicotine, Flavoring Devices: Pre-filled or refillable cartridge Substance Use Topics Alcohol use: Not Currently Comment: occasional Drug use: Not Currently Types: Marijuana ALLERGIES: ALLERGIES No Known Allergies CURRENT OUTPATIENT MEDICATIONS: meclizine (ANTIVERT) 25 mg tab Take 1 tablet by mouth three times a day as needed (for dizziness.vertigo.). rizatriptan (MAXALT) 10 mg tablet Take 1 tablet by mouth as needed for migraine headache (see administration instructions). May repeat dose after 2 hours if needed. Maximum daily dose is 30 mg per day. dulaglutide (TRULICITY) 1.5 mg/0.5 mL pen injector Inject 1.5 mg subcutaneously one time a week. amphetamine-dextroamphetamine XR (ADDERALL XR) 30 mg capsule Take 1 capsule by mouth every morning for 30 days. Patient should start on October 08, 2024. methylphenidate (RITALIN) 20 mg tablet Take 1 tablet by mouth as needed for up to 30 days. Take at approx. 3-4 pm. Patient should start on October 08, 2024. triamcinolone acetonide (KENALOG) 0.1 % cream Apply to affected area two times a day as needed. May use for up to 14 days per rash omeprazole (PRILOSEC) 20 mg capsule Take 1 capsule by mouth once daily. On empty stomach at least 30 minutes before eating. buPROPion XL (WELLBUTRIN XL) 150 mg 24 hr tablet Take 1 tablet by mouth once daily. Norethindrone, Contraceptive, (SELMA) 0.35 mg tablet Take 1 tablet by mouth once daily. ondansetron orally disintegrating (ZOFRAN ODT) 4 mg disintegrating tablet Take 1 tablet by mouth every 8 hours as needed for nausea/vomiting. fluconazole (DIFLUCAN) 150 mg tablet Take 1 tablet today, then a 2nd tablet in 72 hours, and 3rd tablet in another 72 hours. (Patient not taking: Reported on 10/01/2024) amphetamine-dextroamphetamine XR (ADDERALL XR) 30 mg capsule Take 1 capsule by mouth every morning for 30 days. methylphenidate (RITALIN) 20 mg tablet Take 1 tablet by mouth as needed for up to 30 days. Take at approx. 3-4 pm. methylphenidate (RITALIN) 20 mg tablet Take 1 tablet by mouth as needed for up to 30 days. Take at approx. 3-4 pm. Patient should start on September 08, 2024. (Patient not taking: Reported on 10/01/2024) amphetamine-dextroamphetamine XR (ADDERALL XR) 30 mg capsule Take 1 capsule by mouth every morning for 30 days. Patient should start on September 08, 2024. amphetamine-dextroamphetamine XR (ADDERALL XR) 30 mg capsule Take 1 capsule by mouth every morning for 30 days. methylphenidate (RITALIN) 20 mg tablet Take 1 tablet by mouth as needed for up to 30 days. Take at approx. (more content not included)... [facility] 10-11-2024 History of Present illness Narrative (Elements copied from my note dated January 13, 2023, have been reviewed and updated where appropriate, and all reflect current assessment and medical decision making from today's encounter, October 11, 2024) HISTORY OF PRESENT ILLNESS: Katie Forde is a 22 year old female here for follow up of leukocytosis, thrombocytosis. Labs reviewed, prior work up. No changes to report Referred back to me by [facility], she's been seen for out of body feelings, severe anxiety. They noted leukocytosis and referred back. We had a chat about what she is experiencing she does get migraines. We note thrombocytosis, her MPN was negative.. CLINICAL IMPRESSION: Leukocytosis, thrombocytosis, suspect reactive. ?some serotonin mediated issue RECOMMENDATION/PLAN: 1. Trial of baby aspirin one a day, she'll send a mychart in 1-2 weeks to let me know if she feels better. Written and verbal health teaching given to patient, patient verbalizes understanding and agrees with treatment plan. PAST MEDICAL HISTORY Diagnosis Date ADHD (attention deficit hyperactivity disorder) Fatty liver GERD (gastroesophageal reflux disease) Marfan's syndrome (HCC) VIRAL WARTS NOS 06/25/2008 resolved PAST SURGICAL [...] Social History Tobacco Use Smoking status: Former Current packs/day: 0.00 Types: Cigarettes Quit date: 2021 Years since quittin.2 Smokeless tobacco: Never Tobacco comments: Pt smoked 3 cigarettes daily x 2 months, quit 2021 Pt vapes Vaping Use Vaping status: current everyday user Substances: Nicotine, Flavoring Devices: Pre-filled or refillable cartridge Substance Use Topics Alcohol use: Not Currently Comment: occasional Drug use: Not Currently Types: Marijuana ALLERGIES: ALLERGIES No Known Allergies CURRENT OUTPATIENT MEDICATIONS: meclizine (ANTIVERT) 25 mg tab Take 1 tablet by mouth three times a day as needed (for dizziness.vertigo.). rizatriptan (MAXALT) 10 mg tablet Take 1 tablet by mouth as needed for migraine headache (see administration instructions). May repeat dose after 2 hours if needed. Maximum daily dose is 30 mg per day. dulaglutide (TRULICITY) 1.5 mg/0.5 mL pen injector Inject 1.5 mg subcutaneously one time a week. amphetamine-dextroamphetamine XR (ADDERALL XR) 30 mg capsule Take 1 capsule by mouth every morning for 30 days. Patient should start on October 08, 2024. methylphenidate (RITALIN) 20 mg tablet Take 1 tablet by mouth as needed for up to 30 days. Take at approx. 3-4 pm. Patient should start on October 08, 2024. triamcinolone acetonide (KENALOG) 0.1 % cream Apply to affected area two times a day as needed. May use for up to 14 days per rash omeprazole (PRILOSEC) 20 mg capsule Take 1 capsule by mouth once daily. On empty stomach at least 30 minutes before eating. buPROPion XL (WELLBUTRIN XL) 150 mg 24 hr tablet Take 1 tablet by mouth once daily. Norethindrone, Contraceptive, (SELMA) 0.35 mg tablet Take 1 tablet by mouth once daily. ondansetron orally disintegrating (ZOFRAN ODT) 4 mg disintegrating tablet Take 1 tablet by mouth every 8 hours as needed for nausea/vomiting. fluconazole (DIFLUCAN) 150 mg tablet Take 1 tablet today, then a 2nd tablet in 72 hours, and 3rd tablet in another 72 hours. (Patient not taking: Reported on 10/01/2024) amphetamine-dextroamphetamine XR (ADDERALL XR) 30 mg capsule Take 1 capsule by mouth every morning for 30 days. methylphenidate (RITALIN) 20 mg tablet Take 1 tablet by mouth as needed for up to 30 days. Take at approx. 3-4 pm. methylphenidate (RITALIN) 20 mg tablet Take 1 tablet by mouth as needed for up to 30 days. Take at approx. 3-4 pm. Patient should start on September 08, 2024. (Patient not taking: Reported on 10/01/2024) amphetamine-dextroamphetamine XR (ADDERALL XR) 30 mg capsule Take 1 capsule by mouth every morning for 30 days. Patient should start on September 08, 2024. amphetamine-dextroamphetamine XR (ADDERALL XR) 30 mg capsule Take 1 capsule by mouth every morning for 30 days. methylphenidate (RITALIN) 20 mg tablet Take 1 tablet by mouth as needed for up to 30 days. Take at approx. 3-4 pm. Blood-Glucose Meter 1 Device as directed. For once daily testing blood sugar diagnostic (BLOOD GLUCOSE TEST) test strip Test blood sugar(s) one times daily. Dx: Type 2 DM - Controlled E11.9 Insulin: No Lancets Test blood sugar(s) one times daily. Dx: Type 2 DM - Controlled E11.9 Insulin: No CPAP/BIPAP/OTHER Type .CPAPSettings into a note to see current settings/supplies/DME information. REVIEW OF SYSTEMS: GENERAL: No fever, night sweats, weight loss or malaise. All other reviewed and negative other than HPI. PHYSICAL EXAMINATION: VITAL SIGNS: BP 114/77 Pulse 102 Temp (Src) 98.3 (Temporal) Wt 297 lb (134.7kg) SpO2 98% LMP 08/06/2024 GENERAL APPEARANCE: Well appearing, in no acute distress, alert and oriented x3, well-hydrated, well nourished. I spent a total of 30 minutes on the date of the service which included preparing to see the patient, [id number] patient care, completing clinical documentation, obtaining and/or reviewing separately obtained history, performing a medically appropriate examination, counseling and educating the patient/family/caregiver, ordering medications, tests, or procedures, independently interpreting results (not separately reported), and communicating results to the patient/family/caregiver. Electronically Signed: Gopal Yanez MD October 11, 2024 documented in this encounter [facility] 10-11-2024 History of Present illness Narrative Patient declined chaperoene. Katie Forde is a 23 year old female who presents today for a vulvar biopsy. Indication: persistent pruritis. UNIVERSAL PROTOCOL / SAFETY CHECKLIST Procedure to be Performed: Vulvar Biopsy Sign In: A Moment of CARE was completed. Appropriate PPE (Personal Protective Equipment) worn by all providers involved with the procedure. Special equipment not required. Patient/Surrogate Stated/Verified: Patient name, Date of , Relevant allergies, and The intended procedure Time Out: Relevant labs, photos, and/or imaging studies have been reviewed. Intended patient and procedure match the source document(s) (e.g. consent, H&P, associated studies [imaging, pathology]) match the intended patient and procedure. Consent obtained and matches the intended procedure. Yes. Correct side/site has been marked and visible. Medications required for this procedure are verified. Fire risk assessed and is not applicable. Implants: are not applicable. Sign Out: Specimens are all correctly labeled and sent. All instruments, equipment, possible retained foreign bodies are accounted for. Yes. The post-procedure plan of care has been communicated to the patient or surrogate. PROCEDURE NOTE: GROSS LESIONS: No BIOPSY: Area was cleansed with betadine and anesthetized with 2 mL 1% lidocaine with 1:100,000 epi. 4mm Mcleod punch used to biopsy region. HEMOSTASIS: Obtained with silver nitrate and pressure Procedure Summary: Patient tolerated procedure well. ASSESSMENT: persistent vulvar irritation PLAN: Specimens labeled and sent to Pathology. Will notify patient of results in 1-2 weeks. Post-procedure instructions reviewed and written material given to the patient. Pat Ferrer APRN.MERLIN documented in this encounter [facility] 10-11-2024 Note HNO ID: [id number] Author: PAT FERRER APRN.MERLIN Service: ? Author Type: Nurse Practitioner Type: Progress Notes Filed: 10/11/2024 10:13 Note Text: Patient declined chaperoene. Katie Forde is a 23 year old female who presents today for a vulvar biopsy. Indication: persistent pruritis. UNIVERSAL PROTOCOL / SAFETY CHECKLIST Procedure to be Performed: Vulvar Biopsy Sign In: A Moment of CARE was completed. Appropriate PPE (Personal Protective Equipment) worn by all providers involved with the procedure. Special equipment not required. Patient/Surrogate Stated/Verified: Patient name, Date of , Relevant allergies, and The intended procedure Time Out: Relevant labs, photos, and/or imaging studies have been reviewed. Intended patient and procedure match the source document(s) (e.g. consent, HANDP, associated studies [imaging, pathology]) match the intended patient and procedure. Consent obtained and matches the intended procedure. Yes. Correct side/site has been marked and visible. Medications required for this procedure are verified. Fire risk assessed and is not applicable. Implants: are not applicable. Sign Out: Specimens are all correctly labeled and sent. All instruments, equipment, possible retained foreign bodies are accounted for. Yes. The post-procedure plan of care has been communicated to the patient or surrogate. PROCEDURE NOTE: GROSS LESIONS: No BIOPSY: Area was cleansed with betadine and anesthetized with 2 mL 1% lidocaine with 1:100,000 epi. 4mm Mcleod punch used to biopsy region. HEMOSTASIS: Obtained with silver nitrate and pressure Procedure Summary: Patient tolerated procedure well. ASSESSMENT: persistent vulvar irritation PLAN: Specimens labeled and sent to Pathology. Will notify patient of results in 1-2 weeks. Post-procedure instructions reviewed and written material given to the patient. Pat Ferrer APRN.ELECTRIC STOVE MECH[employer]IC [facility] 10-11-2024 Instructions Arminda Montoya LPN - 10/11/2024 9:22 AM EDT VULVAR BIOPSY PATIENT INSTRUCTIONS Many conditions may cause your intensive care unit registered nurse to suggest a vulvar biopsy including vulvar itching unresponsive to therapy, ulcerated lesions, pigmented lesions, and tumors. The biopsy result will assist your intensive care unit registered nurse to devise a treatment plan suitable to your condition. 1. Usually, there is a local discomfort, swelling, and skin discoloration. Using cold compresses overnight usually alleviates the discomfort considerably. Warm compresses thereafter can be used as needed. Prescribed analgesic (pain killers) are not necessary. You may use Advil, Tylenol, etc. for pain relief. 2. You may shower or take tub baths. 3. If sutures are used, they will dissolve in 7-14 days. 4. You should call the office if there is excessive bleeding, swelling, fever, chills, sweats, or difficulty walking. 5. Biopsy results will be available in 7-10 days. If you have not heard your results in 2 weeks please contact your physician. documented in this encounter [facility] 10-08-2024 Telephone encounter Note Pt read [employer] message. Ami Alberts MA [facility] 10-08-2024 Miscellaneous Notes Pt read [employer] message. Ami Alberts MA My chart message sent to patient. Zohreh Fregoso LPN Noted CBC in ER with WBC up to 16+. Also noted that ER doctor recommended hematology and neurology consults. Will touch base with manufacturing process engineer before sending formal order so they can make recommendations for labs to order prior as indicated. Consult order filed for neurology. Patient reports she was seen in [facility] ER on 09/29/24 & 10/06/24 for the same symptoms. Yesterday ER told her she needs to see hematology b/c her WBC's are high and she needs to see neurology b/c she has tingling / numbness in her body. Reports she saw pcp on 10/01/24 and they discussed these symptoms. Asking if pcp can place consults for her to schedule with hematology and neurology? [facility] with reply. documented in this encounter [facility] 10-08-2024 Telephone encounter Note My chart message sent to patient. Zohreh Fregoso LPN [facility] 10-07-2024 Telephone encounter Note Noted CBC in ER with WBC up to 16+. Also noted that ER doctor recommended hematology and neurology consults. Will touch base with manufacturing process engineer before sending formal order so they can make recommendations for labs to order prior as indicated. Consult order filed for neurology. [facility] 10-07-2024 Telephone encounter Note Spoke w pt and she is scheduled w Dr Eric for10/11. Reno Mccollum [facility] 10-07-2024 Miscellaneous Notes Spoke w pt and she is scheduled w Dr Eric for10/11. [place] Mccollum She is already established with Dr. Yanez. Please schedule a follow up visit with him. Eli Tilley RN Patient states she was at [facility] ED and they informed her to contact hematology for scheduling. Please review and advise. Patient had seen Dr. Burris 07/[address] Yanez 12/2022, 06/2023 documented in this encounter [facility] 10-07-2024 Telephone encounter Note She is already established with Dr. Yanez. Please schedule a follow up visit with him. Eli Tilley RN [facility] Work Phone: 10-07-2024 Telephone encounter Note Patient reports she was seen in [facility] ER on 09/29/24 & 10/06/24 for the same symptoms. Yesterday ER told her she needs to see hematology b/c her WBC's are high and she needs to see neurology b/c she has tingling / numbness in her body. Reports she saw pcp on 10/01/24 and they discussed these symptoms. Asking if pcp can place consults for her to schedule with hematology and neurology? Please MyChart patient with reply. [facility] 10-07-2024 Telephone encounter Note Patient states she was at [facility] ED and they informed her to contact hematology for scheduling. Please review and advise. Patient had seen Dr. Burris 07/[address] Yanez 12/2022, 06/2023 [facility] Work Phone: 10-06-2024 Discharge summary [facility] 10-06-2024 Radiology Diagnostic study note [facility] Imaging Services [address] [place] [address] Brain/Head without Contrast MR#: [id number] Acct: [id number] Name: KATIE FORDE Rep #: [id number] : 2000 F 23 From: Cecy Jaimes MD PCP: Dr. Kate Silva MD Status: RE G ER Study:Brain/Head without Contrast Date of Exa m: 10/06/24 Exam# [id number] Ordering Dr: Mike Feldman DO PROCEDURE: BRAIN/HEAD WITHOUT CONTRAST 10/06/2024 REASON FOR EXAM: PARESTHESIAS TECHNIQUE: Head CT without intravenous contrast. Coronal and Sagittal reconstruction serieswere provided. One or more dose reduction techniques were used (e.g., Automated exposure control, adjustment of the mA and/or kV according to patient size, use of iterative reconstruction technique. COMPARISON: None FINDINGS: * ACUTE: No acute infarct or hemorrhage. No mass effect or herniation. * BRAIN PARENCHYMA: Signal intensities are within normal limits for age. * VENTRICLES/EXTRA-AXIAL SPACES: No hydrocephalus or extra-axial fluid collections. * EXTRACRANIAL STRUCTURES: Visualized osseous structures are normal. Soft tissues are normal. CT/Brain/Head without Contrast IMPRESSION: No acute intracranial abnormality. Reading Location: [facility] CC: Dr. Kate Silva MD; Dr. Mike Feldman DO ~ [facility] [employer]: Signed [facility] 10-06-2024 Discharge summary Note Date/Time October 06, 2024 10:26pm [facility] Medical Records Department [address] [place] [address] Emergency Department Summary 10/06/24 MR#: [id number] Acct: [id number] Name: KATIE FORDE Rep #:[id number] : 2000 23 From: Mike Caballero PCP: Dr. Kate Silva MD Status:RE G ER Location: ED HPI History of Present Illness Chief Complaint: General Illness Informant: patient and parent Narrative Narrative: Presents to the ED for evaluation of recurrent symptoms. Here with mother reports for the last month intermittent lightheaded symptoms is worsening. No chest pains no shortness of breath. She states will have occasional abdominal discomfort and nausea. She has had generalized paresthesias however the day noted numbness on the left side of her body including her torso. There is no weakness. Denies headache or dizziness. She reports she was here 7 days ago and evaluated. She said multiple testing with EKGs and lab work. No CT brain. Mother patient denies any family history of multiple sclerosis. She reports heart rate normally 90s to 102 recently noticed in the 60s. Follow-up with her PCP 2 days after her visit she was put on Antivert for viral vertigo. She denies any dizzy spinning sensations. She states she has the feelings of depersonalization. Prior to a month ago no similar symptoms. She reports only thing total lab work with white count that was elevated. Denies cough or denies urinary symptoms. Prior similar symptoms: Yes PFSH [facility] Medical History Depersonalization disorder Fatty liver Smoker Marfan syndrome ADHD (attention deficit hyperactivity disorder) Retinal detachment, old, total/subtotal Femur fracture, right Home Medications ?Medication ?Instructions ?Recorded ?Last Taken ?Type dextroamphetamine-amphetamine 30 30 mg PO DAILY Unknown History mg tablet (Adderall) methylphenidate HCl 20 mg tablet 20 mg PO DAILY Unknown History (Ritalin) medroxyprogesterone 10 mg tablet 10 mg PO DAILY 11/30/23 History vit no.95-ferrous 1 tab PO DAILY 12/02/23 Unk nown History fumarate 28 mg-folic acid 800 mcg tablet () dextroamphetamine-amphetamine ER 1 cap PO 10/06/24 Unk nown History 30 mg 24hr capsule,extend release dulaglutide 1.5 mg/0.5 mL 1.5 mg subcut QWEEK 10/06/24 Unknown History subcutaneous pen injector (Trulicity) norethindrone (contraceptive) 0.35 0.35 mg PO DAILY Unknown History mg tablet (Deblitane) Allergy/AdvReac Type Severity Reaction Status Date / Time No Known Allergies Allergy Verified 10/06/24 19:45 Surgical History History of liver biopsy Social History Smoking Status: Light Smoker (<10/day) ROS ROS ED Constitutional Constitutional ED: Denies chills, fever(s) or sweats ENT ENT ED: Denies sore throat Cardiovascular Cardiovascular: Reports other Details: Lightheaded symptoms. ; Denies chest pain, leg edema, palpitations or racing heartbeat Respiratory/Chest Respiratory/Chest: Denies cough, dyspnea or dyspnea on exertion Gastrointestinal Gastrointestinal: Reports nausea; Denies abdominal pain, diarrhea or vomiting Genitourinary Genitourinary ED: Denies dysuria, hematuria or urinary frequency Musculoskeletal Musculoskeletal: Denies back pain, extremity pain or neck pain Integumentary Denies rash or wounds Neurologic Neurologic: Reports paresthesias; Denies headache(s) or weakness EXAM Physical Exam Const Vital Signs: 10/06/24 19:45 10/06/24 20:12 10/06/24 21:35 Temperature 97 F L Temperature Source Temporal Pulse Rate 102 H 90 Respiratory Rate 20 H 25 H Respiratory Effort Normal Respiratory Pattern Normal Blood Pressure 143/83 H 130/76 H Blood Pressure Mean 103 94 Pulse Ox 97 96 Oxygen Delivery Method Room Air Room Air Positive well nourished and well developed General Appearance ED: well developed and NAD HEENT Reports moist mucous membranes normocephalic and atraumatic Eyes General Eye ED: Yes normal appearance of both eyes Neck full ROM Chest Wall Chest: Negative for tenderness Resp normal respiratory effort and normal air movement Effort and Inspection: symmetric chest movement; Negative for respiratory distress Cardio regular rate, regular rhythm and no murmurs Peripheral Pulses: pulses 2+ throughout GI normal to inspection, nondistended, normoactive bowel sounds and non-tender Palpation: Negative for guarding or rebound tenderness present Extremity normal to inspection General Extremety ED: Negative for edema or tenderness General Extremity: Negative for edema Neuro oriented x3, CN's II-XII intact bilaterally and no sensory deficits noted Neuro Narrative: No focal deficits. Equal symmetric strength upper and lower extremities 5 out of 5. Soft compartments. Pulses noted distally. Sensorium / Orientation: awake and alert Skin no rashes or lesions noted and no wounds MDM MDM MDM Narrative Medical decision making narrative: Interventions / MDM: Differential diagnosis: Near syncope, paresthesias, leukocytosis Diagnosis considered but do not suspect: Intracranial mass however CT negative. My EKG interpretation: Sinus rhythm 92, no ST or T wave changes QTc 442. Imaging independently reviewed and interpreted by myself: CT brain: No acute process also read by radiology. External documents reviewed: ED visit from 11 days ago normal EKG labs with a white count of 15 urine negative for infection there was hematuria. hCG was negative. Abdominal labs otherwise normal. Test considered but not ordered:N/A ED course: Patient intermittent changes reported paresthesias now in left side subjectively. There is no weakness. Lightheaded symptoms EKG ordered will check basic labs will obtain CT brain. CT brain no acute process EKG sinus rhythm no acute findings. 2225: Labs white count 16.7 trending up from previous labs thyroid screening normal electrolytes normal. Mother states no history of blood disorders or leukemia. However she will be referred to hematology for trending of white count. Discussed nonspecific paresthesia with multiple sclerosis in the differential. She is referred to neurology for further evaluation. Re-evaluation: stable Disposition discussed with patient/family/significant other: Patient and mother Case discussed with consulting clinician: N/A This note was generated with Portafare dictation software. It may contain incorrectwords, spelling, and punctuation that were not noted in checking the note beforesigning. Lab Data Attestation: I reviewed the patient's lab results. Labs: Laboratory Results - last 24 hr 10/06/24 20:35 WBC 16.7 H RBC 4.86 Hgb 14.7 Hct 42.9 MCV 88.3 MCH 30.2 MCHC 34.3 RDW Std Deviation 39.6 RDW Coeff of Devon 12.1 Plt Count 512 H MPV 9.7 Immature Gran % (Auto) 0.400 Neut % (Auto) 72.5 H Lymph % (Auto) 21.6 Winn % (Auto) 4.6 Eos % (Auto) 0.4 Baso % (Auto) 0.5 Absolute Neuts (auto) 12.1 H Absolute Lymphs (auto) 3.60 Nucleated RBC % 0 Sodium 138 Potassium 3.9 Chloride 102 Carbon Dioxide 23.1 Anion Gap 13 BUN 10 Creatinine 0.78 Estim Creat Clear Calc 172.04 Est GFR (MDRD) Non-Af 109 BUN/Creatinine Ratio 12.8 Glucose 96 Calcium 9.2 TSH 0.571 Radiography Diagnostic Testing: Clinical Impression(s) from Imaging Studies Brain CT 10/06/24 20:48 IMPRESSION: No acute intracranial abnormality. Reading Location: [facility] Discharge Plan Triage Chief Complaint: General Illness ED Provider: Mike Feldman Dx/Rx/DC Orders Clinical Impression: Paresthesias, Leukocytosis, Lightheaded Instructions: ED Near-Fainting, Uncertain Cause, ED Paraesthesias Prescriptions: No Action methylphenidate HCl [Ritalin] 20 MG tablet 20 mg PO DAILY Patient Comments: PT STATES SHE DOES NOT ALWAYS TAKE THIS DAILY dextroamphetamine-amphetamine [Adderall] 30 MG tablet 30 mg PO DAILY Patient Comments: PT STATES SHE DOES NOT ALWAYS TAKE THIS DAILY dextroamphetamine-amphetamine 30 mg capsule,extended release 24hr 1 cap PO norethindrone (contraceptive) [Deblitane] 0.35 mg tablet 0.35 mg PO DAILY Trulicity 1.5 mg/0.5 mL pen injector 1.5 mg subcut QWEEK medroxyprogesterone 10 mg tablet 10 mg PO DAILY PNV cmb#95-ferrous fumarate-FA [] 28 mg iron- 800 mcg tablet 1 tab PO DAILY Primary Care Provider: Kate Silva Referrals: Del Saez MD [Med Staff - Active Staff] - 1-2 Weeks Kate Silva MD [Primary Care Provider] - Bora Bacon MD [[facility]] - 1-2 Weeks Activity Restrictions/Additional Instructions: CT brain negative. EKG normal. Thyroid studies electrolytes normal. Labs withleukocytosis white count of 16.7. No clinical signs of infection. Follow-up with Dr. Saez hematology for further workup if needed. With paresthesias recurrent nonspecific follow-up with neurology, Dr. Bacon for further workup if needed. Print Language: British Disposition Disposition: Home, Self Care What to do if you have Problems For any increased pain, shortness of breath, bleeding, nausea or vomiting, chestpain, or any unexpected problems, contact your Primary Care Provider. Call [facility] ([phone]) or report to the closest Emergency Room. Call 911 if necessary. 10/06/242225 <Electronically signed by Mike Caballero> Cosigner Signature (if applicable): CC: Dr. Kate Silva MD ~ Signed [facility] Work Phone: [phone] 198-603204-04-2025 Instructions* Patient Instructions* Kaet Silva MD - 10/01/2024 11:16 AM EDT - Take Meclizine 25 mg as needed for vertigo; can be taken 3-4 times a day. - If Meclizine is not effective, you may take Benadryl at night to help with sleep and vertigo symptoms. Start with a low dose (12.5 mg) and increase up to 50 mg if needed. - Stay hydrated by drinking 6-8 cups of non-caffeinated fluids daily. - Practice breathing exercises to help manage anxiety and improve sleep: Inhale for 4 seconds, holdfor a moment, then exhale for 8 seconds. Repeat as needed. - Schedule a CBC with differential and TSH test within the next 2-4 weeks to monitor white blood cell count and thyroid function. - Follow up with your healthcare provider if symptoms persist or worsen. [facility] NoteHNO ID: [id number] Author: KATE SILVA MD Service: ? Author Type: Physician Type: Progress Notes Filed: 10/01/2024 11:22 Note Text: This note was created using Natural Conver[employer]. Subjective Katie Forde is a 23 year old female. Patient presents with: weakness, body tingles, light headed , started 2 weeks ago SUBJECTIVE: Katie Forde is a 23 year old year old lady here today for follow up appointment for review of medical conditions. Katie is a 23-year-old female, with a history of sleep apnea, presenting with lightheadedness and fatigue. Katie reports experiencing lightheadedness and fatigue for the past 2 weeks, with symptoms worsening at night. She describes the sensation as feeling like skydiving when lying down, which has led her to sleep in her mother's room due to fear. She denies any sense of room spinning but describes the feeling as weird and scary. The lightheadedness is also triggered when she gets up too fast and is worse when lying down. She notes that sleeping at an angle improves the symptoms. She has been using a CPAP machine for sleep apnea. She also reports experiencing depersonalization regularly for the past 2 weeks, stating, I don't feel like I'm actually in my body right now. She attributes this to sleep deprivation, as the lightheadedness keeps her awake at night. She also reports ear pain, although previous examinations have shown no abnormalities. She visited the ER recently due to these symptoms, where she was diagnosed with weakness. Her blood pressure was 145/84 mmHg, and her heart rate was 97 bpm. An EKG showed normal sinus rhythm with a rate of 84 bpm. A urinalysis showed no infection, and a metabolic panel was unremarkable. A chest X-ray was also unremarkable. Her white blood cell count was elevated at 15,000/?L, and her platelet count was elevated at 503,000/?L. She was told she was dehydrated and needed to drink more electrolytes. She denies any issues with her kidneys. She has tried jquf-wrf-gyulyhn Dramamine for the lightheadedness but reports that it did not help. She also reports a history of yeast infections and is scheduled for a vulvar biopsy on the . PAST MEDICAL HISTORY Diagnosis Date ADHD (attention deficit hyperactivity disorder) Fatty liver GERD (gastroesophageal reflux disease) Marfan's syndrome VIRAL WARTS NOS 06/25/2008 resolved Current Outpatient Medications Medication Sig dulaglutide (TRULICITY) 1.5 mg/0.5 mL pen injector Inject 1.5 mg subcutaneously one time a week. amphetamine-dextroamphetamine XR (ADDERALL XR) 30 mg capsule Take 1 capsule by mouth every morning for 30 days. Patient should start on September 08, 2024. [START ON 10/08/2024] methylphenidate (RITALIN) 20 mg tablet Take 1 tablet by mouth as needed for up to 30 days. Take at approx. 3-4 pm. Patient should start on October 08, 2024. triamcinolone acetonide (KENALOG) 0.1 % cream Apply to affected area two times a day as needed. May use for up to 14 days per rash omeprazole (PRILOSEC) 20 mg capsule Take 1 capsule by mouth once daily. On empty stomach at least 30 minutes before eating. buPROPion XL (WELLBUTRIN XL) 150 mg 24 hr tablet Take 1 tablet by mouth once daily. Blood-Glucose Meter 1 Device as directed. For once daily testing blood sugar diagnostic (BLOOD GLUCOSE TEST) test strip Test blood sugar(s) one times daily. Dx: Type 2 DM - Controlled E11.9 Insulin: No Lancets Test blood sugar(s) one times daily. Dx: Type 2 DM - Controlled E11.9 Insulin: No Norethindrone, Contraceptive, (SELMA) 0.35 mg tablet Take 1 tablet by mouth once daily. ondansetron orally disintegrating (ZOFRAN ODT) 4 mg disintegrating tablet Take 1 tablet by mouth every 8 hours as needed for nausea/vomiting. CPAP/BIPAP/OTHER Type .CPAPSettings into a note to see current settings/supplies/DME information. meclizine (ANTIVERT) 25 mg tab Take 1 tablet by mouth three times a day as needed (for dizziness.vertigo.). rizatriptan (MAXALT) 10 mg tablet Take 1 tablet by mouth as needed for migraine headache (see administration instructions). May repeat dose after 2 hours if needed. Maximum daily dose is 30 mg per day. fluconazole (DIFLUCAN) 150 mg tablet Take 1 tablet today, then a 2nd tablet in 72 hours, and 3rd tablet in another 72 hours. (Patient not taking: Reported on 10/01/2024) amphetamine-dextroamphetamine XR (ADDERALL XR) 30 mg capsule Take 1 capsule by mouth every morning for 30 days. methylphenidate (RITALIN) 20 mg tablet Take 1 tablet by mouth as needed for up to 30 days. Take at approx. 3-4 pm. methylphenidate (RITALIN) 20 mg tablet Take 1 tablet by mouth as needed for up to 30 days. Take at approx. 3-4 pm. Patient should start on September 08, 2024. (Patient not taking: Reported on 10/01/2024) [START ON 10/08/2024] amphetamine-dextroamphetamine XR (ADDERALL XR) 30 mg capsule Take 1 capsule by mouth every morning for 30 days. Patient should start (more content not included)...[facility]04-04-2025 History of Present illness Narrative* Kate Silva MD - 10/01/2024 10:49 AM EDT This note was created using GMEX. Subjective Katie Forde is a 23 year old female. Patient presents with: weakness, body tingles, light headed , started 2 weeks ago SUBJECTIVE: Katie Forde is a 23 year old year old lady here today for follow up appointment for review of medical conditions. Katie is a 23-year-old female, with a history of sleep apnea, presenting with lightheadedness and fatigue. Katie reports experiencing lightheadedness and fatigue for the past 2 weeks, with symptoms worsening at night. She describes the sensation as feeling like skydiving when lying down, which has led her to sleep in her mother's room due to fear. She denies any sense of room spinning but describes the feeling as weird and scary. The lightheadedness is also triggered when she gets up too fast and is worse when lying down. She notes that sleeping at an angle improves the symptoms. She has beenusing a CPAP machine for sleep apnea. She also reports experiencing depersonalization regularly for the past 2 weeks, stating, I don't feel like I'm actually in my body right now. She attributes this to sleep deprivation, as the lightheadedness keeps her awake at night. She also reports ear pain, although previous examinations have shown no abnormalities. She visited the ER recently due to these symptoms, where she was diagnosed with weakness. Her bloodpressure was 145/84 mmHg, and her heart rate was 97 bpm. An EKG showed normal sinus rhythm with a rate of 84 bpm. A urinalysis showed no infection, and a metabolic panel was unremarkable. A chest X-ray was also unremarkable. Her white blood cell count was elevated at 15,000/ L, and her platelet count was elevated at 503,000/ L. She was told she was dehydrated and needed to drink more electrolytes. She denies any issues with her kidneys. She has tried oaxj-zhh-ukvjnzy Dramamine for the lightheadedness but reports that it did not help. She also reports a history of yeast infections and is scheduled for a vulvar biopsy on the . PAST MEDICAL HISTORY Diagnosis Date ADHD (attention deficit hyperactivity disorder) Fatty liver GERD (gastroesophageal reflux disease) Marfan's syndrome VIRAL WARTS NOS 06/25/2008 resolved Current Outpatient Medications Medication Sig dulaglutide (TRULICITY) 1.5 mg/0.5 mL pen injector Inject 1.5 mg subcutaneously one time a week. amphetamine-dextroamphetamine XR (ADDERALL XR) 30 mg capsule Take 1 capsule by mouth every morning for 30 days. Patient should start on September 08, 2024. [START ON 10/08/2024] methylphenidate (RITALIN) 20 mg tablet Take 1 tablet by mouth as needed for upto 30 days. Take at approx. 3-4 pm. Patient should start on October 08, 2024. triamcinolone acetonide (KENALOG) 0.1 % cream Apply to affected area two times a day as needed. Mayuse for up to 14 days per rash omeprazole (PRILOSEC) 20 mg capsule Take 1 capsule by mouth once daily. On empty stomach at least 30 minutes before eating. buPROPion XL (WELLBUTRIN XL) 150 mg 24 hr tablet Take 1 tablet by mouth once daily. Blood-Glucose Meter 1 Device as directed. For once daily testing blood sugar diagnostic (BLOOD GLUCOSE TEST) test strip Test blood sugar(s) one times daily. Dx: Type 2 DM - Controlled E11.9 Insulin: No Lancets Test blood sugar(s) one times daily. Dx: Type 2 DM - Controlled E11.9 Insulin: No Norethindrone, Contraceptive, (SELMA) 0.35 mg tablet Take 1 tablet by mouth once daily. ondansetron orally disintegrating (ZOFRAN ODT) 4 mg disintegrating tablet Take 1 tablet by mouth every 8 hours as needed for nausea/vomiting. CPAP/BIPAP/OTHER Type .CPAPSettings into a note to see current settings/supplies/DME information. meclizine (ANTIVERT) 25 mg tab Take 1 tablet by mouth three times a day as needed (for dizziness.vertigo.). rizatriptan (MAXALT) 10 mg tablet Take 1 tablet by mouth as needed for migraine headache (see administration instructions). May repeat dose after 2 hours if needed. Maximum daily dose is 30 mg per day. fluconazole (DIFLUCAN) 150 mg tablet Take 1 tablet today, then a 2nd tablet in 72 hours, and 3rd tablet in another 72 hours. (Patient not taking: Reported on 10/01/2024) amphetamine-dextroamphetamine XR (ADDERALL XR) 30 mg capsule Take 1 capsule by mouth every morning for 30 days. methylphenidate (RITALIN) 20 mg tablet Take 1 tablet by mouth as needed for up to 30 days. Take at approx. 3-4 pm. methylphenidate (RITALIN) 20 mg tablet Take 1 tablet by mouth as needed for up to 30 days. Take at approx. 3-4 pm. Patient should start on September 08, 2024. (Patient not taking: Reported on 10/01/2024) [START ON 10/08/2024] amphetamine-dextroamphetamine XR (ADDERALL XR) 30 mg capsule Take 1 capsule bymouth every morning for 30 days. Patient should start on October 08, 2024. (Patient not taking: Reported on 10/01/2024 Patient should start on October 08, 2024.) amphetamine-dextroamphetamine XR (ADDERALL XR) 30 mg capsule Take 1 capsule by mouth every morning for 30 days. methylphenidate (RITALIN) 20 mg tablet Take 1 tablet by mouth as needed for up to 30 days. Take at approx. 3-4 pm. No current facility-administered medications for this visit. Review of Systems Objective BP 110/64 Pulse 64 Resp 14 Wt 133.2 kg (293 lb 10.4 oz) LMP 08/06/2024 (Exact Date) BMI 39.83 kg/m Last 5 Encounter Wt Readings: Date: Wt: 10/01/2024 133.2 kg (293 lb 10.4 oz) 08/30/2024 135.6 kg (299 lb) 08/24/2024 136.7 kg (301 lb 5.9 oz) 08/09/2024 136 kg (299 lb 13.2 oz) 05/19/2024 137.6 kg (303 lb 5.7 oz) No waist measurement recorded Estimated body mass index is 39.83 kg/m as calculated from the following: Height as of 08/30/24: 182.9 cm (6'). Weight as of this encounter: 133.2 kg (293 lb 10.4 oz). Last 5 Encounter BP Readings: Date: BP: 10/01/2024 110/64 08/30/2024 118/74 08/24/2024 118/78 08/09/2024 103/61 05/19/2024 120/82 Noted HR 90 on recheck Physical Exam Constitutional: Appearance: Normal appearance. HENT: Head: Normocephalic. Right Ear: External ear normal. There is impacted cerumen. Left Ear: Tympanic membrane, ear canal and external ear normal. Eyes: Conjunctiva/sclera: Conjunctivae normal. Cardiovascular: Rate and Rhythm: Normal rate and regular rhythm. Heart sounds: Normal heart sounds. Pulmonary: Effort: Pulmonary effort is normal. Breath sounds: Normal breath sounds. Musculoskeletal: Right lower leg: No edema. Left lower leg: No edema. Skin: General: Skin is warm and dry. Neurological: General: No focal deficit present. Mental Status: She is alert and oriented to person, place, and time. Psychiatric: Mood and Affect: Mood normal. Behavior: Behavior normal. Thought Content: Thought content normal. Judgment: Judgment normal. From [facility]: Labs: - (no date) - CBC: - WBC: 15 10 / L (elevated) - No anemia - Platelets: 503 10 / L (elevated) - Metabolic Panel: - Electrolytes: Normal, potassium at the lower end of normal, sodium 138 - Renal function: Normal - Mild liver enzyme elevations - Lipase: Normal - Urinalysis: No infection, RBCs attributed to menses - (December last year) TSH: Lower side Imaging: - (no date) Chest X-ray: Unremarkable Tests: - (no date) EKG: Normal sinus rhythm, rate 84 Assessment and Plan # Vertigo (R42) - Symptoms consistent with benign positional vertigo; discussed pathophysiology involving semicircular canals and otoliths. - Prescribed Meclizine 25 mg PO TID PRN for dizziness/vertigo. - Advised patient to sleep at an angle to minimize symptoms. - Educated on potential viral labyrinthitis as a differential. - If symptoms persist, consider referral to physical therapy for vestibular rehabilitation. # Leukocytosis, unspecified type (D72.829) - WBC count elevated at 15 x10^9/L with neutrophilic predominance. - Ordered CBC with differential to be performed in 2-4 weeks to monitor trends. # Thrombocytosis (D75.839) - Platelet count elevated at 503 x10^9/L. - Will monitor with repeat CBC in 2-4 weeks. # Dysfunction of both eustachian tubes (H69.93) # Otalgia of both ears (H92.03) - Exam revealed clear tympanic membranes; possible eustachian tube dysfunction due to weather changes. - Recommended decongestants like Sudafed if tolerated, or nasal saline to help open eustachian tubes. - Educated on manual techniques to relieve eustachian tube pressure. 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 - Emphasized importance of adequate sleep to alleviate depersonalization symptoms. # Other fatigue (R53.83) - Fatigue possibly related to sleep deprivation and vertigo. - Ordered TSH to rule out thyroid dysfunction as a contributing factor. # Fatty (change of) liver, not elsewhere classified (K76.0) - Mild elevations in liver function tests consistent with known fatty liver disease. - No acute intervention required at this time. # Obstructive sleep apnea syndrome (G47.33) - Patient using CPAP therapy. - Reinforced adherence to CPAP use to improve sleep quality and reduce fatigue. # Migraine without status migrainosus, not intractable, unspecified migraine type (G43.909) Refill for Maxalt needed and sent to pharmacy Kate Silva MD [facility] Discharge summary [facility] Medical Records Department [address] [place] [address] Emergency Department Summary 09/29/24 MR#: [id number] Acct: [id number] Name: KATIE FORDE Rep #:[id number] : 2000 23 From: Shiv Molina PCP: Dr. Kate Silva MD Status:RE G ER Location: ED HPI History of Present Illness Chief Complaint: Weakness PFSH [facility] Medical History Smoker Marfan syndrome ADHD (attention deficit hyperactivity disorder) Retinal detachment, old, total/subtotal Femur fracture, right Home Medications ?Medication ?Instructions ?Recorded ?Last Taken ?Type dextroamphetamine-amphetamine 30 30 mg PO DAILY Unknown History mg tablet (Adderall) methylphenidate HCl 20 mg tablet 20 mg PO DAILY Unknown History (Ritalin) medroxyprogesterone 10 mg tablet 10 mg PO DAILY 11/30/23 History vit no.95-ferrous 1 tab PO DAILY 12/02/23 Unk nown History fumarate 28 mg-folic acid 800 mcg tablet () Allergy/AdvReac Type Severity Reaction Status Date / Time No Known Allergies Allergy Verified 09/29/24 20:11 Surgical History History of liver biopsy Social History Smoking Status: Light Smoker (<10/day) EXAM Physical Exam Const Vital Signs: 09/29/24 20:09 09/29/24 20:22 Temperature 97.8 F Temperature Source Oral Pulse Rate 93 Respiratory Rate 18 Respiratory Effort Normal Respiratory Pattern Normal Blood Pressure 145/84 H Blood Pressure Mean 104 Pulse Ox 97 Oxygen Delivery Method Room Air MDM MDM MDM Narrative Medical decision making narrative: HISTORY OF PRESENT ILLNESS: Chief complaint: Weakness 23-year-old female presents with concern for lightheadedness. She states she feels lightheaded. Shenotices more when she is lying flat. She denies syncope. Symptoms are not worse with rising from a seated position. Denies associated palpitations, chest pain, vomiting, diarrhea, recent illnesses. No cough. She notes she vapes. She will sometimes she feels like she is not inside of her body. She denies suicidal ideation homicidal ideation of auditoryvisual hallucinations. Denies headaches. Denies recent sick contacts. She notes she is on her period. Denies urinary complaints REVIEW OF SYSTEMS: Pertinent positives: weakness, lightheadedness Pertinent negatives: Chest pain, shortness of breath, fever, urinary complaints PHYSICAL EXAM: Nursing triage notes reviewed, Vital signs reviewed Constitutional: please see [facility] HENT: MMM Eyes: Pupils equal round and reactive to light, Extraocular muscles intact Neck: No stridor, no JVD, full neck ROM Lungs: Clear to auscultation, No wheezing or rales. No increased work of breathing, no conversational dyspnea, no accessory muscle use, no nasal flaring. No respiratory distress noted Heart: Regular rate and rhythm, No murmurs, No rubs and No gallops, 2+ distal pulses (radial, femoral, posterior tibial) in all extremities Abdomen: Soft, there is no tenderness, rigidity, rebound or guarding, no obviousperitoneal signs, no palpable pulsatile abdominal masses, no auscultated abdominal bruit : No CVAT Extremities: No edema Neuro: Alert and oriented x3, neuro exam at baseline, cranial nerves II through XII are intact. No pain with extraocular muscle movement. There is negative test of skew. 5 of 5 strength in upper and lower extremities in flexion extension. Intact sensation to light touch in upper and lower extremitydermatomes. No truncal or extremity ataxia. No dysdiadochokinesia. Normal gait. 2+ reflexes in upper and lower extremities. No meningeal signs. Negative Babinski. NIH of 0. Skin: No rash or lesions noted MEDICAL DECISION MAKING: Chief Complaint: please see HPI External records reviewed: Prior imaging reviewed: CT of the chest from 2016 shows no acute PE Factors affecting care: none Social determinants of health: none History obtained from others: none Consults: none [facility] Narrative: The patient was initially hemodynamically, afebrile and nontoxic. No focal neurologic deficits. No focal cardiopulmonary normalities on initial exam abdomen soft and nontender. No CVA tenderness. I considered the following differential diagnosis: Dehydration, electro disturbance, anemia ALL IMAGES (IF OBTAINED) HAVE BEEN PERSONALLY REVIEWED AND INTERPRETED BY MYSELF. EKG with normal sinus rhythm, rate 84, normal axis, no intervals, no STEMI CBC with leukocytosis suggestive of systemic aphasia however similar to prior studies, no anemia orthrombocytopenia noted Urinalysis no evidence of infection Urine is negative CMP without evidence of acute kidney injury, significant electrolyte abnormality, anion gap to suggest end organ hypo-perfusion, no evidence of metabolic acidosis with a normal bicarbonate, no evidence of hepatobiliary obstructive pathology. Lipase is wnl indicating no pancreatic inflammation. I have personally reviewed the patient's chest x-ray. Chest x-ray is unremarkable for pulmonary edema, pneumothorax, pneumonia or focal cardiopulmonary abnormality. The synthesis of the patient's history, physical exam, labs images suggest no acute life-limiting etiology of other signs of systemic relation is similar to her prior studies. There is no sign of significant electrolyte abnormality, anemia, arrhythmia, pneumonia, UTI or . There was noted hematuria. Encouraged to follow-up with primary care physician for repeat urinalysis and outpatient. Patient is appropriate for discharge home. Strict return precautions were discussed. The patient and/or family, caregivers express understanding. The patient and/orfamily, caregivers agrees with the plan. Shared decision making: I will have a discussion with the patient and or visitors regarding risk/benefits of further testing or admission. They will be made aware of of the risk/benefits inherent in this decision they will be given the opportunity to voice understanding. Total critical care time today provided was at least 0 minutes. This excludes separately billable procedures. Critical care time (if documented) is secondary to the patient having high probability ofclinically significant/life threatening deterioration in the patient's condition which required my urgent intervention. Impression: 1. Lightheadedness 2. Hematuria Dispo: Discharge This note was generated with Portafare dictation software. It may contain incorrectwords, spelling, and punctuation that were not noted in review of the chart prior to signing. Lab Data Labs: Laboratory Results - last 24 hr 09/29/24 09/29/24 20:25 21:25 WBC 15.0 H RBC 4.83 Hgb 14.6 Hct 42.1 MCV 87.2 MCH 30.2 MCHC 34.7 RDW Std Deviation 39.3 RDW Coeff of [place] 12.3 Plt Count 503 H MPV 9.4 Immature Gran % (Auto) 0.500 Neut % (Auto) 66.7 Lymph % (Auto) 25.9 Winn % (Auto) 5.8 Eos % (Auto) 0.5 Baso % (Auto) 0.6 Absolute Neuts (auto) 10.0 H Absolute Lymphs (auto) 3.89 Nucleated RBC % 0 Sodium 138 Potassium 3.8 Chloride 102 Carbon Dioxide 23.3 Anion Gap 12 BUN 8 Creatinine 0.84 Estim Creat Clear Calc 160.52 Est GFR (MDRD) Non-Af 99 BUN/Creatinine Ratio 9.7 L Glucose 84 Calcium 9.0 Total Bilirubin 0.33 AST 43 H ALT 68 H Alkaline Phosphatase 80 Total Protein 8.1 Albumin 4.3 Globulin 3.8 Albumin/Globulin Ratio 1.2 Lipase 37 Urine Color Yellow Urine Clarity Clear Urine pH 7.0 Ur Specific [place] 1.010 Urine Protein 15 H Urine Glucose (UA) Normal Urine Ketones Negative Urine Occult Blood 250 H Urine Nitrite Negative Urine Bilirubin Negative Urine Urobilinogen Normal Ur Leukocyte Esterase Negative Urine RBC 10-25 SEEN Urine WBC 0 SEEN Ur Squamous Epith Cells 0-5 SEEN Urine Bacteria 0 SEEN Urine Mucus 0 SEEN Urine Test Negative Radiography Diagnostic Testing: Clinical Impression(s) from Imaging Studies Chest X-Ray 09/29/24 20:52 IMPRESSION: No Acute Findings. Reading Location: [facility] Discharge Plan Triage Chief Complaint: Weakness ED Provider: Shiv Roper Dx/Rx/DC Orders Prescriptions: No Action methylphenidate HCl [Ritalin] 20 MG tablet 20 mg PO DAILY dextroamphetamine-amphetamine [Adderall] 30 MG tablet 30 mg PO DAILY medroxyprogesterone 10 mg tablet 10 mg PO DAILY PNV cmb#95-ferrous fumarate-FA [] 28 mg iron- 800 mcg tablet 1 tab PO DAILY Stand Alone Forms: ED Work / School Excuse Primary Care Provider: Kate Silva Referrals: Kate Silva MD [Primary Care Provider] - Activity Restrictions/Additional Instructions: Thank you for trusting us with your care today! Your labs and images were reassuring. No sign of a life or limb threatening pathology was noted. Please increase your fluid intake. Recommend Body Armor, Pedialyte and Gatorade. Please take Tylenol (2 pills, 650 mg), ibuprofen (2 pills, 400 mg) every 6 hoursas needed for pain and fever control. Please return to the emergency department if your symptoms change or worsen. Please follow with your primary care physician for further outpatient evaluationand management. Print Language: British Disposition Disposition: Home, Self Care What to do if you have Problems For any increased pain, shortness of breath, bleeding, nausea or vomiting, chestpain, or any unexpected problems, contact your Primary Care Provider. Call [facility] ([phone]) or report tothe closest Emergency Room. Call 911 if necessary. 09/29/242152 Cosigner Signature (if applicable): CC: Dr. Kate Silva MD ~ Signed [facility]04-02-2025 Radiology Diagnostic study note [facility] Imaging Services [address] [place] [address] Chest 1 View (Portable) MR#: [id number] Acct: [id number] Name: KATIE FORDE Rep #: [id number] : 2000 F 23 From: Abhishek Cortes DO PCP: Dr. Kate Silva MD Status: RE G ER Study:Chest 1 View (Portable) Date of Exam: 09/29/24 Exam# [id number] Ordering Dr: James Roper DO PROCEDURE: CHEST 1 VIEW (PORTABLE) 09/29/2024 REASON FOR EXAM: LIGHTHEADEDNESS TECHNIQUE: Frontal view of the chest. COMPARISON: Chest radiograph dated 04/11/2022. FINDINGS: Hardware: None Heart: The heart size is normal. Lungs: The lungs are clear. Bones: The bones are unremarkable. Other: RAD/Chest 1 View (Portable) IMPRESSION: No Acute Findings. Reading Location: [facility] CC: Dr. Kate Silva MD; Dr. Shiv Roper DO ~ [employer]: Signed [facility]04-02-2025 Discharge summary Author Shiv Roper [facility] Note Date/Time September 29, 2024 9:53 pm [facility] Medical Records Department [address] [place] [address] Emergency Department Summary 09/29/24 MR#: [id number] Acct: [id number] Name: KATIE FORDE Rep #:[id number] : 2000 23 From: Shiv Molina PCP: Dr. Kate Silva MD Status:RE G ER Location: ED HPI History of Present Illness Chief Complaint: Weakness PFSH [facility] Medical History Smoker Marfan syndrome ADHD (attention deficit hyperactivity disorder) Retinal detachment, old, total/subtotal Femur fracture, right Home Medications ?Medication ?Instructions ?Recorded ?Last Taken ?Type dextroamphetamine-amphetamine 30 30 mg PO DAILY Unknown History mg tablet (Adderall) methylphenidate HCl 20 mg tablet 20 mg PO DAILY Unknown History (Ritalin) medroxyprogesterone 10 mg tablet 10 mg PO DAILY 11/30/23 History vit no.95-ferrous 1 tab PO DAILY 12/02/23 Unk nown History fumarate 28 mg-folic acid 800 mcg tablet () Allergy/AdvReac Type Severity Reaction Status Date / Time No Known Allergies Allergy Verified 09/29/24 20:11 Surgical History History of liver biopsy Social History Smoking Status: Light Smoker (<10/day) EXAM Physical Exam Const Vital Signs: 09/29/24 20:09 09/29/24 20:22 Temperature 97.8 F Temperature Source Oral Pulse Rate 93 Respiratory Rate 18 Respiratory Effort Normal Respiratory Pattern Normal Blood Pressure 145/84 H Blood Pressure Mean 104 Pulse Ox 97 Oxygen Delivery Method Room Air MDM MDM MDM Narrative Medical decision making narrative: HISTORY OF PRESENT ILLNESS: Chief complaint: Weakness 23-year-old female presents with concern for lightheadedness. She states she feels lightheaded. She notices more when she is lying flat. She denies syncope. Symptoms are not worse with rising from a seated position. Denies associated palpitations, chest pain, vomiting, diarrhea, recent illnesses. No cough. She notes she vapes. She will sometimes she feels like she is not inside of her body. She denies suicidal ideation homicidal ideation of auditoryvisual hallucinations. Denies headaches. Denies recent sick contacts. She notes she is on her period. Denies urinary complaints REVIEW OF SYSTEMS: Pertinent positives: weakness, lightheadedness Pertinent negatives: Chest pain, shortness of breath, fever, urinary complaints PHYSICAL EXAM: Nursing triage notes reviewed, Vital signs reviewed Constitutional: please see mdm HENT: MMM Eyes: Pupils equal round and reactive to light, Extraocular muscles intact Neck: No stridor, no JVD, full neck ROM Lungs: Clear to auscultation, No wheezing or rales. No increased work of breathing, no conversational dyspnea, no accessory muscle use, no nasal flaring. No respiratory distress noted Heart: Regular rate and rhythm, No murmurs, No rubs and No gallops, 2+ distal pulses (radial, femoral, posterior tibial) in all extremities Abdomen: Soft, there is no tenderness, rigidity, rebound or guarding, no obviousperitoneal signs, no palpable pulsatile abdominal masses, no auscultated abdominal bruit : No CVAT Extremities: No edema Neuro: Alert and oriented x3, neuro exam at baseline, cranial nerves II through XII are intact. No pain with extraocular muscle movement. There is negative test of skew. 5 of 5 strength in upper and lower extremities in flexion extension. Intact sensation to light touch in upper and lower extremity dermatomes. No truncal or extremity ataxia. No dysdiadochokinesia. Normal gait. 2+ reflexes in upper and lower extremities. No meningeal signs. Negative Babinski. NIH of 0. Skin: No rash or lesions noted MEDICAL DECISION MAKING: Chief Complaint: please see HPI External records reviewed: Prior imaging reviewed: CT of the chest from 2016 shows no acute PE Factors affecting care: none Social determinants of health: none History obtained from others: none Consults: none [facility] Narrative: The patient was initially hemodynamically, afebrile and nontoxic. No focal neurologic deficits. No focal cardiopulmonary normalities on initial exam abdomen soft and nontender. No CVA tenderness. I considered the following differential diagnosis: Dehydration, electro disturbance, anemia ALL IMAGES (IF OBTAINED) HAVE BEEN PERSONALLY REVIEWED AND INTERPRETED BY MYSELF. EKG with normal sinus rhythm, rate 84, normal axis, no intervals, no STEMI CBC with leukocytosis suggestive of systemic aphasia however similar to prior studies, no anemia or thrombocytopenia noted Urinalysis no evidence of infection Urine is negative CMP without evidence of acute kidney injury, significant electrolyte abnormality, anion gap to suggest end organ hypo-perfusion, no evidence of metabolic acidosis with a normal bicarbonate, no evidence of hepatobiliary obstructive pathology. Lipase is wnl indicating no pancreatic inflammation. I have personally reviewed the patient's chest x-ray. Chest x-ray is unremarkable for pulmonary edema, pneumothorax, pneumonia or focal cardiopulmonary abnormality. The synthesis of the patient's history, physical exam, labs images suggest no acute life-limiting etiology of other signs of systemic relation is similar to her prior studies. There is no sign of significant electrolyte abnormality, anemia, arrhythmia, pneumonia, UTI or . There was noted hematuria. Encouraged to follow-up with primary care physician for repeat urinalysis and outpatient. Patient is appropriate for discharge home. Strict return precautions were discussed. The patient and/or family, caregivers express understanding. The patient and/orfamily, caregivers agrees with the plan. Shared decision making: I will have a discussion with the patient and or visitors regarding risk/benefits of further testing or admission. They will be made aware of of the risk/benefits inherent in this decision they will be given the opportunity to voice understanding. Total critical care time today provided was at least 0 minutes. This excludes separately billable procedures. Critical care time (if documented) is secondary to the patient having high probability of clinically significant/life threatening deterioration in the patient's condition which required my urgent intervention. Impression: 1. Lightheadedness 2. Hematuria Dispo: Discharge This note was generated with Portafare dictation software. It may contain incorrectwords, spelling, and punctuation that were not noted in review of the chart prior to signing. Lab Data Labs: Laboratory Results - last 24 hr 09/29/24 09/29/24 20:25 21:25 WBC 15.0 H RBC 4.83 Hgb 14.6 Hct 42.1 MCV 87.2 MCH 30.2 MCHC 34.7 RDW Std Deviation 39.3 RDW Coeff of [place] 12.3 Plt Count 503 H MPV 9.4 Immature Gran % (Auto) 0.500 Neut % (Auto) 66.7 Lymph % (Auto) 25.9 Winn % (Auto) 5.8 Eos % (Auto) 0.5 Baso % (Auto) 0.6 Absolute Neuts (auto) 10.0 H Absolute Lymphs (auto) 3.89 Nucleated RBC % 0 Sodium 138 Potassium 3.8 Chloride 102 Carbon Dioxide 23.3 Anion Gap 12 BUN 8 Creatinine 0.84 Estim Creat Clear Calc 160.52 Est GFR (MDRD) Non-Af 99 BUN/Creatinine Ratio 9.7 L Glucose 84 Calcium 9.0 Total Bilirubin 0.33 AST 43 H ALT 68 H Alkaline Phosphatase 80 Total Protein 8.1 Albumin 4.3 Globulin 3.8 Albumin/Globulin Ratio 1.2 Lipase 37 Urine Color Yellow Urine Clarity Clear Urine pH 7.0 Ur Specific [place] 1.010 Urine Protein 15 H Urine Glucose (UA) Normal Urine Ketones Negative Urine Occult Blood 250 H Urine Nitrite Negative Urine Bilirubin Negative Urine Urobilinogen Normal Ur Leukocyte Esterase Negative Urine RBC 10-25 SEEN Urine WBC 0 SEEN Ur Squamous Epith Cells 0-5 SEEN Urine Bacteria 0 SEEN Urine Mucus 0 SEEN Urine Test Negative Radiography Diagnostic Testing: Clinical Impression(s) from Imaging Studies Chest X-Ray 09/29/24 20:52 IMPRESSION: No Acute Findings. Reading [facility] Discharge Plan Triage Chief Complaint: Weakness ED Provider: Shiv Roper Dx/Rx/DC Orders Prescriptions: No Action methylphenidate HCl [Ritalin] 20 MG tablet 20 mg PO DAILY dextroamphetamine-amphetamine [Adderall] 30 MG tablet 30 mg PO DAILY medroxyprogesterone 10 mg tablet 10 mg PO DAILY PNV cmb#95-ferrous fumarate-FA [] 28 mg iron- 800 mcg tablet 1 tab PO DAILY Stand Alone Forms: ED Work / School Excuse Primary Care Provider: Kate Silva Referrals: Kate Silva MD [Primary Care Provider] - Activity Restrictions/Additional Instructions: Thank you for trusting us with your care today! Your labs and images were reassuring. No sign of a life or limb threatening pathology was noted. Please increase your fluid intake. Recommend Body Armor, Pedialyte and Gatorade. Please take Tylenol (2 pills, 650 mg), ibuprofen (2 pills, 400 mg) every 6 hoursas needed for pain and fever control. Please return to the emergency department if your symptoms change or worsen. Please follow with your primary care physician for further outpatient evaluationand management. Print Language: British Disposition Disposition: Home, Self Care What to do if you have Problems For any increased pain, shortness of breath, bleeding, nausea or vomiting, chestpain, or any unexpected problems, contact your Primary Care Provider. Call [facility] ([phone]) or report to the closest Emergency Room. Call 911 if necessary. 09/29/242152 <Electronically signed by Shiv Roper DO> Cosigner Signature (if applicable): CC: Dr. Kate Silva MD ~ Signed [facility] Work Phone: [phone]) 740-282603-31-2025 Telephone encounter Note* Telephone Encounter - Pat Ferrer APRN.CNP - 09/27/2024 5:08 PM EDT Order filed. Pat Ferrer APRN.CNP [facility]03-31-2025 Miscellaneous Notes* Telephone Encounter - Pat Ferrer APRN.CNP - 09/27/2024 5:08 PM EDT Order filed. Pat Ferrer APRN.CNP * Telephone Encounter - Kristin Newby RN - 09/27/2024 3:03 PM EDT Please file order so patient can schedule. Kristin Newby RN documented in this [facility]25 Telephone encounter Note * Telephone Encounter - Kristin Newby RN - 09/27/2024 3:03 PM EDT Please file order so patient can schedule. Kristin Newby RN [facility]03-17-2025 Telephone encounter Note* Telephone Encounter - Negin Recinos LPN - 09/13/2024 9:49 AM EDT Prescription Refill Information The patient has been identified by name and date of : Yes Caregiver verified no other encounters exist for this prescription request: Yes Caregiver confirmed with patient/requestor that no other refills are due, in the near future, with this provider at this time: Yes The last office visit in the department: 08/09/24 Does the patient have a future office visit with this provider/department: Yes 09/14/24 Requested Prescriptions Pending Prescriptions Disp Refills dulaglutide (TRULICITY) 1.5 mg/0.5 mL pen injector 4 Each 2 Sig: Inject 1.5 mg subcutaneously one time a week. Negin Recinos LPN September 13, 2024 9:50 AM [facility]03-17-2025 Miscellaneous Notes* Telephone Encounter - Negin Recinos LPN - 09/13/2024 9:49 AM EDT Prescription Refill Information The patient has been identified by name and date of : Yes Caregiver verified no other encounters exist for this prescription request: Yes Caregiver confirmed with patient/requestor that no other refills are due, in the near future, with this provider at this time: Yes The last office visit in the department: 08/09/24 Does the patient have a future office visit with this provider/department: Yes 09/14/24 Requested Prescriptions Pending Prescriptions Disp Refills dulaglutide (TRULICITY) 1.5 mg/0.5 mL pen injector 4 Each 2 Sig: Inject 1.5 mg subcutaneously one time a week. Negin Recinos LPN September 13, 2024 9:50 AM documented in this encounterFair[facility]03-[facility]-2025 Telephone encounter Note * Telephone Encounter - Lorri Quintanilla MA - 09/09/2024 8:25 AM EDT See update from pt regarding symptoms. Lorri Quintanilla MA [facility]03-13-2025 Miscellaneous Notes* Telephone Encounter - Lorri Quintanilla MA - 09/09/2024 8:25 AM EDT See update from pt regarding symptoms. Lorri Quintanilla MA * Telephone Encounter - Cookie Scales OCCA - 08/23/2024 3:02 PM EST Please advise on patients lab work from 08/09. Thank you. NARA Rooney documented in this encounterFairfield Medical Center03-03-2025 NoteHNO ID: [id number] Author: SANTI MCALLISTER MD Service: ? Author Type: Physician Type: Progress Notes Filed: 08/30/2024 14:34 Note Text: Santi Mcallister MD Interventional Cardiology [address] [place] [address] [phone] Chief Complaint Patient presents with: Follow Up: last seen 2022 HISTORY OF PRESENT ILLNESS: Ms. 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 Cardiac was completely normal Cardiac Risk Factors age (male over 45, female over 55), family history of CAD PAST MEDICAL HISTORY Diagnosis Date ADHD (attention [...] Social History Tobacco Use Smoking status: Former Current packs/day: 0.00 Types: Cigarettes Quit date: 2021 Years since quittin.1 Smokeless tobacco: Never Tobacco comments: Pt smoked 3 cigarettes daily x 2 months, quit 2021 Pt vapes Vaping Use Vaping status: current everyday user Substances: Nicotine, Flavoring Devices: Pre-filled or refillable cartridge Substance Use Topics Alcohol use: Not Currently Comment: occasional Drug use: Not Currently Types: Marijuana ALLERGIES No Known Allergies Medications: Current Outpatient Medications Medication Sig Dispense Refill amoxicillin-clavulanate potassium (AUGMENTIN) 875-125 mg per tablet Take 1 tablet by mouth two times a day for 10 days. 20 tablet 0 benzonatate (TESSALON PERLE) 100 mg capsule Take 1 capsule by mouth three times a day as needed for cough for up to 7 days. 21 capsule 0 fluconazole (DIFLUCAN) 150 mg tablet Take 1 tablet today, then a 2nd tablet in 72 hours, and 3rd tablet in another 72 hours. 3 tablet 0 amphetamine-dextroamphetamine XR (ADDERALL XR) 30 mg capsule Take 1 capsule by mouth every morning for 30 days. 30 capsule 0 methylphenidate (RITALIN) 20 mg tablet Take 1 tablet by mouth as needed for up to 30 days. Take at approx. 3-4 pm. 30 tablet 0 [START ON 09/08/2024] methylphenidate (RITALIN) 20 mg tablet Take 1 tablet by mouth as needed for up to 30 days. Take at approx. 3-4 pm. Patient should start on September 08, 2024. 30 tablet 0 [START ON 09/08/2024] amphetamine-dextroamphetamine XR (ADDERALL XR) 30 mg capsule Take 1 capsule by mouth every morning for 30 days. Patient should start on September 08, 2024. 30 capsule 0 [START ON 10/08/2024] amphetamine-dextroamphetamine XR (ADDERALL XR) 30 mg capsule Take 1 capsule by mouth every morning for 30 days. Patient should start on October 08, 2024. 30 capsule 0 [START ON 10/08/2024] methylphenidate (RITALIN) 20 mg tablet Take 1 tablet by mouth as needed for up to 30 days. Take at approx. 3-4 pm. Patient should start on October 08, 2024. 30 tablet 0 triamcinolone acetonide (KENALOG) 0.1 % cream Apply to affected area two times a day as needed. May use for up to 14 days per rash 30 g 0 omeprazole (PRILOSEC) 20 mg capsule Take 1 capsule by mouth once daily. On empty stomach at least 30 minutes before eating. 90 capsule 1 methylphenidate (RITALIN) 20 mg tablet Take 1 tablet by mouth as needed for up to 30 days. Take at approx. 3-4 pm. 30 tablet 0 rizatriptan (MAXALT) 10 mg tablet Take 1 tablet (10 mg) by mouth as needed for migraine headache (see administration instructions). May repeat dose after 2 hours if needed. Maximum daily dose is 30 mg per day. 18 tablet 2 dulaglutide (TRULICITY) 1.5 mg/0.5 mL pen injector Inject 1.5 mg subcutaneously one time a week. 4 Each 2 buPROPion XL (WELLBUTRIN XL) 150 mg 24 hr tablet Take 1 tablet by mouth once daily. 30 tablet 3 Blood-Glucose Meter 1 Device as directed. For once daily testing 1 Each 0 blood sugar diagnostic (BLOOD GLUCOSE TEST) test strip Test blood sugar(s) one times daily. Dx: Type 2 DM - Controlled E11.9 Insulin: No 50 Strip 11 Lancets Test blood sugar(s) one times daily. Dx: Type 2 DM - Controlled E11.9 Insulin: No 100 Each 11 Norethind (more content not included)...[facility]03-03-2025 History of Present illness Narrative* Santi Mcallister MD - 08/30/2024 2:28 PM EST Images from the original note were not included. Santi Mcallister MD Interventional Cardiology [address] [place] [address] [phone] Chief Complaint Patient presents with: Follow Up: last seen 2022 HISTORY OF PRESENT ILLNESS: Ms. 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 Cardiac was completely normal Cardiac Risk Factors age (male over 45, female over 55), family history of CAD PAST MEDICAL HISTORY Diagnosis Date ADHD (attention [...] Social History Tobacco Use Smoking status: Former Current packs/day: 0.00 Types: Cigarettes Quit date: 2021 Years since quittin.1 Smokeless tobacco: Never Tobacco comments: Pt smoked 3 cigarettes daily x 2 months, quit 2021 Pt vapes Vaping Use Vaping status: current everyday user Substances: Nicotine, Flavoring Devices: Pre-filled or refillable cartridge Substance Use Topics Alcohol use: Not Currently Comment: occasional Drug use: Not Currently Types: Marijuana ALLERGIES No Known Allergies Medications: Current Outpatient Medications Medication Sig Dispense Refill amoxicillin-clavulanate potassium (AUGMENTIN) 875-125 mg per tablet Take 1 tablet by mouth two times a day for 10 days. 20 tablet 0 benzonatate (TESSALON PERLE) 100 mg capsule Take 1 capsule by mouth three times a day as needed forcough for up to 7 days. 21 capsule 0 fluconazole (DIFLUCAN) 150 mg tablet Take 1 tablet today, then a 2nd tablet in 72 hours, and 3rd tablet in another 72 hours. 3 tablet 0 amphetamine-dextroamphetamine XR (ADDERALL XR) 30 mg capsule Take 1 capsule by mouth every morning for 30 days. 30 capsule 0 methylphenidate (RITALIN) 20 mg tablet Take 1 tablet by mouth as needed for up to 30 days. Take at approx. 3-4 pm. 30 tablet 0 [START ON 09/08/2024] methylphenidate (RITALIN) 20 mg tablet Take 1 tablet by mouth as needed for upto 30 days. Take at approx. 3-4 pm. Patient should start on September 08, 2024. 30 tablet 0 [START ON 09/08/2024] amphetamine-dextroamphetamine XR (ADDERALL XR) 30 mg capsule Take 1 capsule bymouth every morning for 30 days. Patient should start on September 08, 2024. 30 capsule 0 [START ON 10/08/2024] amphetamine-dextroamphetamine XR (ADDERALL XR) 30 mg capsule Take 1 capsule bymouth every morning for 30 days. Patient should start on October 08, 2024. 30 capsule 0 [START ON 10/08/2024] methylphenidate (RITALIN) 20 mg tablet Take 1 tablet by mouth as needed for upto 30 days. Take at approx. 3-4 pm. Patient should start on October 08, 2024. 30 tablet 0 triamcinolone acetonide (KENALOG) 0.1 % cream Apply to affected area two times a day as needed. Mayuse for up to 14 days per rash 30 g 0 omeprazole (PRILOSEC) 20 mg capsule Take 1 capsule by mouth once daily. On empty stomach at least 30 minutes before eating. 90 capsule 1 methylphenidate (RITALIN) 20 mg tablet Take 1 tablet by mouth as needed for up to 30 days. Take at approx. 3-4 pm. 30 tablet 0 rizatriptan (MAXALT) 10 mg tablet Take 1 tablet (10 mg) by mouth as needed for migraine headache (see administration instructions). May repeat dose after 2 hours if needed. Maximum daily dose is 30 mg per day. 18 tablet 2 dulaglutide (TRULICITY) 1.5 mg/0.5 mL pen injector Inject 1.5 mg subcutaneously one time a week. 4 Each 2 buPROPion XL (WELLBUTRIN XL) 150 mg 24 hr tablet Take 1 tablet by mouth once daily. 30 tablet 3 Blood-Glucose Meter 1 Device as directed. For once daily testing 1 Each 0 blood sugar diagnostic (BLOOD GLUCOSE TEST) test strip Test blood sugar(s) one times daily. Dx: Type 2 DM - Controlled E11.9 Insulin: No 50 Strip 11 Lancets Test blood sugar(s) one times daily. Dx: Type 2 DM - Controlled E11.9 Insulin: No 100 Each 11 Norethindrone, Contraceptive, (SELMA) 0.35 mg tablet Take 1 tablet by mouth once daily. 84 tablet 3 ondansetron orally disintegrating (ZOFRAN ODT) 4 mg disintegrating tablet Take 1 tablet by mouth every 8 hours as needed for nausea/vomiting. 30 tablet 0 CPAP/BIPAP/OTHER Type .CPAPSettings into a note to see current settings/supplies/DME information. 1Each 0 amphetamine-dextroamphetamine XR (ADDERALL XR) 30 mg capsule Take 1 capsule by mouth every morning for 30 days. 30 capsule 0 No current facility-administered medications for this visit. Review of Systems Constitutional: Negative for chills, [...] does not have insomnia. Physical Examination: Vitals:BP 118/74 Pulse 93 Resp 14 Ht 6' 0 (1.83m) Wt 299 lb (135.6kg) SpO2 96% LMP 08/06/2024 BMI 40.54 kg/(m^2). BP w/Orthostatic Vitals Date and Time Orthostatic BP Orthostatic Pulse BP Pulse BP Position BP Site BP Cuff Size 08/30/24 1317 -- -- 118/74 93 Sitting Right Arm Large Adult Peak Flow Date and Time PF Resp 08/30/24 1317 -- 14 Last 2 Encounter Wt Readings: Date: Wt: 08/30/2024 299 lb (135.6 kg) 08/24/2024 301 lb 5.9 oz (136.7 kg) Physical Exam Constitutional: General: She is not [...] No tenderness. Abdominal: General: Abdomen is flat. Musculoskeletal: General: Normal range of motion. Cervical back: Normal range of motion and neck supple. Skin: General: Skin is warm and dry. Neurological: Mental Status: She is alert and oriented to person, place, and time. Psychiatric: Mood and Affect: Mood normal. Thought Content: Thought content normal. Pertinent Labs: CBC: Hemoglobin (g/dL) Date Value 08/09/2024 14.6 08/07/2021 14.3 Hematocrit (%) Date Value 08/09/2024 43.7 08/07/2021 42.9 WBC (k/uL) Date Value 08/09/2024 12.44 08/07/2021 11.15 Platelet Count (k/uL) Date Value 08/09/2024 488 08/07/2021 568 BMP: Glucose (mg/dL) Date Value 08/09/2024 62 08/07/2021 115 Potassium (mmol/L) Date Value 08/09/2024 4.1 08/07/2021 4.0 Sodium (mmol/L) Date Value 08/09/2024 137 08/07/2021 140 Chloride (mmol/L) Date Value 08/09/2024 104 08/07/2021 104 CO2 (mmol/L) Date Value 08/09/2024 21 08/07/2021 26 Creatinine (mg/dL) Date Value 08/09/2024 0.80 08/07/2021 0.78 BUN (mg/dL) Date Value 08/09/2024 8 08/07/2021 6 Anion Gap (mmol/L) Date Value 08/09/2024 12 08/07/2021 10 Calcium (mg/dL) Date Value 08/07/2021 9.1 Calcium, Total (mg/dL) Date Value 08/09/2024 9.1 INR: Lipid Profile: Total Cholesterol, Nonfasting Date Value Ref Range Status 04/30/2024 189 <200 mg/dL Final Comment: <200 mg/dL, Desirable 200-239 mg/dL, Borderline high >239 mg/dL, High HDL Cholesterol, Nonfasting Date Value Ref Range Status 04/30/2024 36 (L) >39 mg/dL Final Comment: 40-59 mg/dL, Acceptable >59 mg/dL, High: Negative risk factor for coronary heart disease <40 mg/dL, Low: Positive risk factor for coronary heart disease LDL Cholesterol, Nonfasting Date Value Ref Range Status 04/30/2024 131 (H) <100 mg/dL Final Comment: <100 mg/dL, Optimal 100-129 mg/dL, Near optimal/above optimal 130-159 mg/dL, Borderline high 160-189 mg/dL, High >189 mg/dL, Very high Secondary prevention optimal LDL Cholesterol levels are recommended to be < 70 mg/dL Triglycerides, Nonfasting Date Value Ref Range Status 04/30/2024 108 <150 mg/dL Final Comment: <150 mg/dL, Normal 150-199 mg/dL, Borderline high 200-499 mg/dL, High >499 mg/dL, Very high Hemoglobin A1C: No results found for: HGBA1C TSH: No results found for: TSHREFL Prior Cardiac Testing EKG Assessment and Plan: 23 years old female patient with confirmed Marfan syndrome ASSESSMENT/PLAN: 1. Marfan's syndrome - ICD9: 759.82, ICD10: Q87.40 (primary diagnosis) Continue monitoring likely she is getting needed CTA with contrast in few years to assess the ascending aorta Aorta assessment by echo shows mid ascending aorta measured 3.2 and distal ascending aorta 2.7 2. PVC (premature ventricular contraction) - ICD9: 427.69, ICD10: I49.3 Symptomatic premature ventricular ectopics occasional no indication for intervention or therapy Santi Mcallister MD Follow up plannin months Electronically signed by Santi Mcallister MD on August 30, 2024, 2:28 PM The above note was partially created using a dictation recognition software. A reasonable attempt has been made to correct any errors. documented in this [facility]25 NoteHNO ID: [id number] Author: RADHA LONG PA-C Service: ? Author Type: Physician Computer Engineering Professor Type: Progress Notes Filed: 08/24/2024 10:36 Note Text: This note was created using [employer]. Subjective Katie Forde is a 23 year old female. Patient is a 23-year-old female who complains of ongoing congestion, sinus pressure, ear fullness, sore throat and cough that has been present for the past 2 weeks. Patient denies fever, chills or myalgia. Patient has no history of asthma or COPD and does not smoke. Patient states that her brother recently did test positive for group A strep tonsillitis. Cough Associated symptoms include ear pain and sore throat. Review of Systems HENT: Positive for congestion, ear pain, sinus pressure and sore throat. Respiratory: Positive for cough. All other systems reviewed and are negative. Objective BP 118/78 Pulse 104 Temp 36.7 ?C (98 ?F) (Tympanic) Resp 16 Wt (!) 136.7 kg (301 lb 5.9 oz) LMP 03/31/2024 (Exact Date) SpO2 97% BMI 40.87 kg/m? Physical Exam Vitals and nursing note reviewed. Constitutional: Appearance: Normal appearance. She is normal weight. HENT: Head: Normocephalic and atraumatic. Right Ear: Tympanic membrane, ear canal and external ear normal. Left Ear: Tympanic membrane, ear canal and external ear normal. Nose: Nose normal. Mouth/Throat: Mouth: Mucous membranes are moist. Pharynx: Oropharynx is clear. Eyes: Extraocular Movements: Extraocular movements intact. Conjunctiva/sclera: Conjunctivae normal. Pupils: Pupils are equal, round, and reactive to light. Cardiovascular: Rate and Rhythm: Normal rate and regular rhythm. Pulses: Normal pulses. Heart sounds: Normal heart sounds. Pulmonary: Effort: Pulmonary effort is normal. Breath sounds: Normal breath sounds. Musculoskeletal: Cervical back: Normal range of motion and neck supple. Skin: General: Skin is warm and dry. Capillary Refill: Capillary refill takes less than 2 seconds. Neurological: General: No focal deficit present. Mental Status: She is alert and oriented to person, place, and time. Psychiatric: Mood and Affect: Mood normal. Behavior: Behavior normal. Thought Content: Thought content normal. Judgment: Judgment normal. Assessment and Plan Physical exam findings as noted above. Patient was provided with prescriptions for Augmentin 875-125 mg and Tessalon 100 mg. Supportive care instructions were discussed and the patient verbalizes good understanding of same. CLINICAL IMPRESSION: Acute Sinusitis ASSESSMENT/PLAN: 1. Acute recurrent sinusitis, unspecified location - ICD9: 461.9, ICD10: J01.91 - AMOXICILLIN 875 MG-POTASSIUM CLAVULANATE 125 MG TABLET - BENZONATATE 100 MG CAPSULE [facility]02-25-2025 History of Present illness Narrative* Radha Long PA-C - 08/24/2024 10:34 AM EST This note was created using [employer]. Subjective Katie Forde is a 23 year old female. Patient is a 23-year-old female who complains of ongoing congestion, sinus pressure, ear fullness, sore throat and cough that has been present for the past 2 weeks. Patient denies fever, chills or myalgia. Patient has no history of asthma or COPD and does not smoke. Patient states that her brother recently did test positive for group A strep tonsillitis. Cough Associated symptoms include ear pain and sore throat. Review of Systems HENT: Positive for congestion, ear pain, sinus pressure and sore throat. Respiratory: Positive for cough. All other systems reviewed and are negative. Objective BP 118/78 Pulse 104 Temp 36.7 C (98 F) (Tympanic) Resp 16 Wt (!) 136.7 kg (301 lb 5.9 oz) LMP 03/31/2024 (Exact Date) SpO2 97% BMI 40.87 kg/m Physical Exam Vitals and nursing note reviewed. Constitutional: Appearance: Normal appearance. She is normal weight. HENT: Head: Normocephalic and atraumatic. Right Ear: Tympanic membrane, ear canal and external ear normal. Left Ear: Tympanic membrane, ear canal and external ear normal. Nose: Nose normal. Mouth/Throat: Mouth: Mucous membranes are moist. Pharynx: Oropharynx is clear. Eyes: Extraocular Movements: Extraocular movements intact. Conjunctiva/sclera: Conjunctivae normal. Pupils: Pupils are equal, round, and reactive to light. Cardiovascular: Rate and Rhythm: Normal rate and regular rhythm. Pulses: Normal pulses. Heart sounds: Normal heart sounds. Pulmonary: Effort: Pulmonary effort is normal. Breath sounds: Normal breath sounds. Musculoskeletal: Cervical back: Normal range of motion and neck supple. Skin: General: Skin is warm and dry. Capillary Refill: Capillary refill takes less than 2 seconds. Neurological: General: No focal deficit present. Mental Status: She is alert and oriented to person, place, and time. Psychiatric: Mood and Affect: Mood normal. Behavior: Behavior normal. Thought Content: Thought content normal. Judgment: Judgment normal. Assessment and Plan Physical exam findings as noted above. Patient was provided with prescriptions for Augmentin 875-125 mg and Tessalon 100 mg. Supportive care instructions were discussed and the patient verbalizes good understanding of same. CLINICAL IMPRESSION: Acute Sinusitis ASSESSMENT/PLAN: 1. Acute recurrent sinusitis, unspecified location - ICD9: 461.9, ICD10: J01.91 - AMOXICILLIN 875 MG-POTASSIUM CLAVULANATE 125 MG TABLET - BENZONATATE 100 MG CAPSULE Radha Long PA-C documented in this encounterFair[facility]02-24-2025 Telephone encounter Note * Telephone Encounter - Cookie Scales [facility] - 08/23/2024 3:02 PM EST Please advise on patients lab work from 08/09. Thank you. N[facility]02-10[facility] Instructions* Patient Instructions* Kate Silva MD - 08/09/2024 11:33 AM EST - Adderall XR 30 mg and Ritalin prescriptions sent to [facility]; call the pharmacy 3 days before you need a refill to ensure they have it in stock. - Apply Triamcinolone cream to affected areas twice daily for up to 14 days as needed for eczema; prescription sent to [facility]. - Use CeraVe Itch Relief lotion and Aveeno baby lotion for additional skin hydration and itch relief. - Take Claritin daily to help reduce itching. - Take Omeprazole daily to manage acid reflux. - Avoid eating and drinking cold liquids 3 hours before bedtime to prevent acid reflux. - Follow a diet rich in fruits, vegetables, and protein; avoid processed foods and excessive sugar. - Schedule a follow-up appointment with your intensive care unit registered nurse for a Pap test and discuss the need for avulvar biopsy. - Next appointment in 3 months. documented in this encounterFair[facility]02-10-2025 NoteHNO ID: [id number] Author: KATE SILVA MD Service: ? Author Type: Physician Type: Progress Notes Filed: 08/09/2024 23:21 Note Text: This note was created using Dittoter. Subjective Katie Forde is a 23 year old female. Patient presents with: F/U 3 Month SUBJECTIVE: Katie Forde is a 23 year old year old lady here today for 3 month follow up appointment for review of medical conditions. Katie Forde is a 23-year-old female with a history of diabetes mellitus type 2, eczema, migraines, and GERD, presenting for medication refills and evaluation of diffuse myalgia, eczema, and nocturnal abdominal pain with emesis. Katie reports diffuse myalgia that began approximately 1 month ago. The pain is described as a constant ache, similar to post-exercise soreness, despite no recent physical activity. The myalgia is not exacerbated by the use of Adderall. Katie also experiences episodes of numbness and weakness, particularly in the upper extremities, making it difficult to lift her hands for extended periods. The pain is not localized to specific muscles or joints and occurs regardless of her position or activity. She inquires about the possibility of fibromyalgia, noting a family history of the condition in her mother and brother. She denies joint pain or swelling. Katie also reports worsening eczema, with pruritic, dry skin lesions on her elbows and other areas. She has been using unscented lotions from [employer] without relief. She notes a family history of eczema and mentions that her 10-year-old brother has severe eczema. Additionally, Katie experiences nocturnal abdominal pain with emesis approximately 3 times per month. The pain is described as a sharp, squeezing sensation in the stomach, often accompanied by nausea and a feeling of needing to defecate or vomit. These episodes occur late at night and are not associated with specific foods or activities. She suspects a possible link to nicotine use, as she has been using Zyn nicotine pouches and vaping. She is attempting to quit nicotine and has switched to a zero-nicotine vape but reports increased moodiness during withdrawal. She denies any changes in bowel habits and reports regular bowel movements. Katie has a history of migraines and continues to experience episodes. She is currently menstruating and reports increased pain during this time. She also mentions stress eating and difficulty controlling her diet, despite efforts to reduce sugar intake. She is currently taking omeprazole for GERD but admits to inconsistent use. She is requesting refills for Adderall and Ritalin, which were last prescribed on July 17 but not filled by her pharmacy, [facility]. She also requests medication for nausea and eczema. She is due for a Pap smear and a vulvar biopsy due to recurrent yeast infections, as recommended by her intensive care unit registered nurse. PAST MEDICAL HISTORY Diagnosis Date ADHD (attention deficit hyperactivity disorder) Fatty liver GERD (gastroesophageal reflux disease) Marfan's syndrome VIRAL WARTS NOS 06/25/2008 resolved Current Outpatient Medications Medication Sig omeprazole (PRILOSEC) 20 mg capsule Take 1 capsule by mouth once daily. On empty stomach at least 30 minutes before eating. methylphenidate (RITALIN) 20 mg tablet Take 1 tablet by mouth as needed for up to 30 days. Take at approx. 3-4 pm. Patient should start on July 17, 2024. amphetamine-dextroamphetamine XR (ADDERALL XR) 30 mg capsule Take 1 capsule by mouth every morning for 30 days. Patient should start on July 17, 2024. fluconazole (DIFLUCAN) 150 mg tablet Take 1 tablet today, then a 2nd tablet in 72 hours, and 3rd tablet in another 72 hours. rizatriptan (MAXALT) 10 mg tablet Take 1 tablet (10 mg) by mouth as needed for migraine headache (see administration instructions). May repeat dose after 2 hours if needed. Maximum daily dose is 30 mg per day. dulaglutide (TRULICITY) 1.5 mg/0.5 mL pen injector Inject 1.5 mg subcutaneously one time a week. buPROPion XL (WELLBUTRIN XL) 150 mg 24 hr tablet Take 1 tablet by mouth once daily. Blood-Glucose Meter 1 Device as directed. For once daily testing blood sugar diagnostic (BLOOD GLUCOSE TEST) test strip Test blood sugar(s) one times daily. Dx: Type 2 DM - Controlled E11.9 Insulin: No Lancets Test blood sugar(s) one times daily. Dx: Type 2 DM - Controlled E11.9 Insulin: No Norethindrone, Contraceptive, (SELMA) 0.35 mg tablet Take 1 tablet by mouth once daily. ondansetron orally disintegrating (ZOFRAN ODT) 4 mg disintegrating tablet Take 1 tablet by mouth every 8 hours as needed for nausea/vomiting. CPAP/BIPAP/OTHER Type .CPAPSettings into a note to see current settings/supplies/DME information. amphetamine-dextroamphetamine XR (ADDERALL XR) 30 mg capsule Take 1 capsule by mouth every morning for 30 days. methylphenidate (RITALIN) 20 mg tablet Take 1 t (more content not included)... [facility]02-10-2025 History of Present illness Narrative* Kate Silva MD - 08/09/2024 11:02 AM EST This note was created using [employer]. Subjective Katie Forde is a 23 year old female. Patient presents with: F/U 3 Month SUBJECTIVE: Katie Forde is a 23 year old year old lady here today for 3 month follow up appointment for review of medical conditions. Katie Forde is a 23-year-old female with a history of diabetes mellitus type 2, eczema, migraines,and GERD, presenting for medication refills and evaluation of diffuse myalgia, eczema, and nocturnal abdominal pain with emesis. Katie reports diffuse myalgia that began approximately 1 month ago. The pain is described as a constant ache, similar to post-exercise soreness, despite no recent physical activity. The myalgia is not exacerbated by the use of Adderall. Katie also experiences episodes of numbness and weakness, particularly in the upper extremities, making it difficult to lift her hands for extended periods. Thepain is not localized to specific muscles or joints and occurs regardless of her position or activity. She inquires about the possibility of fibromyalgia, noting a family history of the condition in her mother and brother. She denies joint pain or swelling. Katie also reports worsening eczema, with pruritic, dry skin lesions on her elbows and other areas. She has been using unscented lotions from [employer] without relief. She notes a family history of eczema and mentions that her 10-year-old brother has severe eczema. Additionally, Katie experiences nocturnal abdominal pain with emesis approximately 3 times per month. The pain is described as a sharp, squeezing sensation in the stomach, often accompanied by nausea and a feeling of needing to defecate or vomit. These episodes occur late at night and are not associated with specific foods or activities. She suspects a possible link to nicotine use, as she has been using Zyn nicotine pouches and vaping. She is attempting to quit nicotine and has switched to a zero-nicotine vape but reports increased moodiness during withdrawal. She denies any changes in bowel habits and reports regular bowel movements. Katie has a history of migraines and continues to experience episodes. She is currently menstruating and reports increased pain during this time. She also mentions stress eating and difficulty controlling her diet, despite efforts to reduce sugar intake. She is currently taking omeprazole for GERDbut admits to inconsistent use. She is requesting refills for Adderall and Ritalin, which were last prescribed on July 17 but not filled by her pharmacy, [facility]. She also requests medication for nausea and eczema. She is due for a Pap smear and a vulvar biopsy due to recurrent yeast infections, as recommended by her intensive care unit registered nurse. PAST MEDICAL HISTORY Diagnosis Date ADHD (attention deficit hyperactivity disorder) Fatty liver GERD (gastroesophageal reflux disease) Marfan's syndrome VIRAL WARTS NOS 06/25/2008 resolved Current Outpatient Medications Medication Sig omeprazole (PRILOSEC) 20 mg capsule Take 1 capsule by mouth once daily. On empty stomach at least 30 minutes before eating. methylphenidate (RITALIN) 20 mg tablet Take 1 tablet by mouth as needed for up to 30 days. Take at approx. 3-4 pm. Patient should start on July 17, 2024. amphetamine-dextroamphetamine XR (ADDERALL XR) 30 mg capsule Take 1 capsule by mouth every morning for 30 days. Patient should start on July 17, 2024. fluconazole (DIFLUCAN) 150 mg tablet Take 1 tablet today, then a 2nd tablet in 72 hours, and 3rd tablet in another 72 hours. rizatriptan (MAXALT) 10 mg tablet Take 1 tablet (10 mg) by mouth as needed for migraine headache (see administration instructions). May repeat dose after 2 hours if needed. Maximum daily dose is 30 mg per day. dulaglutide (TRULICITY) 1.5 mg/0.5 mL pen injector Inject 1.5 mg subcutaneously one time a week. buPROPion XL (WELLBUTRIN XL) 150 mg 24 hr tablet Take 1 tablet by mouth once daily. Blood-Glucose Meter 1 Device as directed. For once daily testing blood sugar diagnostic (BLOOD GLUCOSE TEST) test strip Test blood sugar(s) one times daily. Dx: Type 2 DM - Controlled E11.9 Insulin: No Lancets Test blood sugar(s) one times daily. Dx: Type 2 DM - Controlled E11.9 Insulin: No Norethindrone, Contraceptive, (SELMA) 0.35 mg tablet Take 1 tablet by mouth once daily. ondansetron orally disintegrating (ZOFRAN ODT) 4 mg disintegrating tablet Take 1 tablet by mouth every 8 hours as needed for nausea/vomiting. CPAP/BIPAP/OTHER Type .CPAPSettings into a note to see current settings/supplies/DME information. amphetamine-dextroamphetamine XR (ADDERALL XR) 30 mg capsule Take 1 capsule by mouth every morning for 30 days. methylphenidate (RITALIN) 20 mg tablet Take 1 tablet by mouth as needed for up to 30 days. Take at approx. 3-4 pm. No current facility-administered medications for this visit. Review of Systems Objective BP 103/61 Pulse 86 Resp 16 Wt 136 kg (299 lb 13.2 oz) LMP 03/31/2024 (Exact Date) BMI 40.66 kg/m Physical Exam Constitutional: Appearance: Normal appearance. She is obese. HENT: Head: Normocephalic. Eyes: Conjunctiva/sclera: Conjunctivae normal. Cardiovascular: Rate and Rhythm: Normal rate and regular rhythm. Heart sounds: Normal heart sounds. Pulmonary: Effort: Pulmonary effort is normal. Breath sounds: Normal breath sounds. Musculoskeletal: Right lower leg: No edema. Left lower leg: No edema. Skin: General: Skin is warm and dry. Findings: Rash (area on arms with mildly irritated pink skin near elbow/antecubetal fossa and smaller spots on hands and arms. No excoriations or bruising from scratching) present. Neurological: General: No focal deficit present. Mental Status: She is alert and oriented to person, place, and time. Psychiatric: Mood and Affect: Mood normal. Behavior: Behavior normal. Thought Content: Thought content normal. Judgment: Judgment normal. Assessment and Plan # Attention deficit hyperactivity disorder (ADHD), combined type (F90.2) - Refilled Adderall XR 30 mg and Ritalin prescriptions; sent to [facility]. - Provided prescriptions for September 08 and an additional month. - Advised patient to call pharmacy 3 days in advance to ensure availability and prompt filling. # Myalgia (M79.10) - Discussed differential diagnosis including fibromyalgia; family history noted. - Ordered comprehensive lab work including CK and inflammatory markers to rule out other causes. - Educated on the benefits of regular exercise to alleviate symptoms. # Elevated LFTs (R79.89) - Previous labs monitored by [facility]; recent A1c improved. - Ordered Metabolic Panel to assess liver function. # Nausea and vomiting, unspecified vomiting type (R11.2) # Gastroesophageal reflux disease, unspecified whether esophagitis present (K21.9) - Episodes occurring approximately 3 times a month, primarily at night. - Discussed potential GERD etiology; advised taking omeprazole daily. - Recommended avoiding cold liquids and eating 3 hours before bedtime. - Educated on dietary modifications to reduce reflux symptoms. # Migraine without status migrainosus, not intractable, unspecified migraine type (G43.909) - No specific treatment changes discussed. # Controlled type 2 diabetes mellitus without complication, without long-term current use of insulin (HCC) (E11.9) - Recent A1c levels improved. - Discussed dietary modifications to reduce sugar intake. - Advised monitoring for yeast infections; follow-up with intensive care unit registered nurse recommended. # Eczema, unspecified type (L30.9) - Prescribed triamcinolone cream for inflamed areas; instructed to apply a small amount twice dailyas needed for up to 14 days. - Recommended CeraVe Itch Relief lotion and Aveeno products for moisturizing. - Advised on the use of cool compresses for severe itching. - Educated on the importance of regular moisturizing to prevent flare-ups. # Encounter for immunization (Z23) - Administered Tdap vaccine. # Encounter for long-term current use of medication (Z79.899) - Refilled Adderall XR 30 mg and Ritalin prescriptions. - Discussed the importance of regular omeprazole use for GERD management. Kate Silva MD documented [facility] Telephone encounter Note * Telephone Encounter - Shukri Duenas MA - 07/19/2024 7:52 AM EST Patient phones requesting refills as follows: Requested Prescriptions Pending Prescriptions Disp Refills omeprazole (PRILOSEC) 20 mg capsule 90 capsule 1 Sig: Take 1 capsule by mouth once daily. On empty stomach at least 30 minutes before eating. Please review and advise. Shukri Duenas MA [facility]01-20-2025 Miscellaneous Notes* Telephone Encounter - Shukri Duenas MA - 07/19/2024 7:52 AM EST Patient phones requesting refills as follows: Requested Prescriptions Pending Prescriptions Disp Refills omeprazole (PRILOSEC) 20 mg capsule 90 capsule 1 Sig: Take 1 capsule by mouth once daily. On empty stomach at least 30 minutes before eating. Please review and advise. Shukri Duenas MA documented in this encounterFair[facility] Center01-14-2025 Telephone encounter Note * Telephone Encounter - Pat Ferrer APRN.CNP - 07/13/2024 3:44 PM EST Pt needs scheduled for vulvar biopsy. Pat Ferrer APRN.CNP [facility]01-14-[facility] Miscellaneous Notes* Telephone Encounter - Pat Ferrer APRN.CNP - 07/13/2024 3:44 PM EST Pt needs scheduled for vulvar biopsy. Pat Ferrer APRN.CNP documented in this encounterFair[facility] Center12-19-2024 Telephone encounter Note * Telephone Encounter - Kate Silva MD - 06/17/2024 12:52 PM EST The following approved medication requests have been [...] 30 days. Take at approx. 3-4 pm. Patient should start on July 17, 2024. Authorizing Provider: KATE SILVA amphetamine-dextroamphetamine XR (ADDERALL XR) 30 mg capsule 30 capsule 0 Sig: Take 1 capsule by mouth every morning for 30 days. Patient should start on July 17, 2024. Authorizing Provider: KATE SILVA methylphenidate (RITALIN) 20 mg tablet 30 tablet 0 Sig: Take 1 tablet by mouth as needed for up to 30 days. Take at approx. 3-4 pm. Authorizing Provider: KATE SILVA MD [facility]12-[facility] Miscellaneous Notes* Telephone Encounter - Kate Silva MD - 06/17/2024 12:52 PM EST The following approved medication requests have been [...] 30 days. Take at approx. 3-4 pm. Patient should start on July 17, 2024. Authorizing Provider: KATE SILVA amphetamine-dextroamphetamine XR (ADDERALL XR) 30 mg capsule 30 capsule 0 Sig: Take 1 capsule by mouth every morning for 30 days. Patient should start on July 17, 2024. Authorizing Provider: KATE SILVA methylphenidate (RITALIN) 20 mg tablet 30 tablet 0 Sig: Take 1 tablet by mouth as needed for up to 30 days. Take at approx. 3-4 pm. Authorizing Provider: KATE SILVA MD * Telephone Encounter - Karen Urias LPN - 06/17/2024 9:11 AM EST Patient has been identified by name and [...] of last office visit in primary care: 06/11/2022 Date of next office visit in primary care: 08/09/2024 Please advise. Thank you. Karen Urias LPN. documented in this encounterFair[facility]12-19-2024 Telephone encounter Note * Telephone Encounter - Karen Urias LPN - 06/17/2024 9:11 AM EST Patient has been identified by name and [...] of last office visit in primary care: 06/11/2022 Date of next office visit in primary care: 08/09/2024 Please advise. Thank you. Karen Urias LPN. [facility]12-03-[facility] Telephone encounter Note* Telephone Encounter - Eulalia Hobbs RN - 06/01/2024 8:47 AM EST [employer] message sent to patient. [facility]12-[facility] Miscellaneous Notes* Telephone Encounter - Eulalia Hobbs RN - 06/01/2024 8:47 AM EST MyChart message sent to patient. documented in this encounterFairfield [facility] Center11-27-2024 Telephone encounter Note * Telephone Encounter - Negin Recinos LPN - 05/26/2024 7:25 AM EST Anything else to add? [facility] Miscellaneous Notes* Telephone Encounter - Negin Recinos LPN - 05/26/2024 7:25 AM EST Anything else to add? documented in this encounterFairfield Medical Center11-20-2024 NoteHNO ID: [id number] Author: ARTHUR JOSEPH PA-C Service: ? Author Type: Physician Computer Engineering Professor Type: Progress Notes Filed: 05/19/2024 12:09 Note Text: This note was created using GMEX. Subjective Katie Forde is a 23 year old female. HPI Presents with a chief complaint of sinus pain and pressure over the past 1 to 2 weeks. Denies cough. States she did have 1 bout of diarrhea yesterday but thinks maybe it was from something she ate. No chest pain or shortness of breath. No vomiting. She has had a frontal sinus pressure which seems to be worsening. She has had some sick contacts near her at home. No fever. Review of Systems Constitutional: Positive for fatigue. Negative for fever. HENT: Positive for congestion, postnasal drip, sinus pressure, sinus pain and sore throat. Negative for ear pain. Respiratory: Negative for cough. Cardiovascular: Negative. Gastrointestinal: Negative. Genitourinary: Negative. Musculoskeletal: Negative. All other systems reviewed and are negative. PAST MEDICAL HISTORY Diagnosis Date ADHD (attention deficit hyperactivity disorder) Fatty liver GERD (gastroesophageal reflux disease) Marfan's syndrome VIRAL WARTS NOS 06/25/2008 resolved Current Outpatient Medications Medication Sig Dispense Refill doxycycline (VIBRA-TABS) 100 mg tablet Take 1 tablet by mouth two times a day for 7 days. 14 tablet 0 amphetamine-dextroamphetamine XR (ADDERALL XR) 30 mg capsule Take 1 capsule by mouth every morning for 30 days. 30 capsule 0 methylphenidate (RITALIN) 20 mg tablet Take 1 tablet by mouth as needed for up to 30 days. Take at approx. 3-4 pm. 30 tablet 0 ibrexafungerp (BREXAFEMME) 150 mg tablet Take 2 tablets (300 mg) by mouth every 12 hours. 4 tablet 0 rizatriptan (MAXALT) 10 mg tablet Take 1 tablet (10 mg) by mouth as needed for migraine headache (see administration instructions). May repeat dose after 2 hours if needed. Maximum daily dose is 30 mg per day. 18 tablet 2 dulaglutide (TRULICITY) 1.5 mg/0.5 mL pen injector Inject 1.5 mg subcutaneously one time a week. 4 Each 2 buPROPion XL (WELLBUTRIN XL) 150 mg 24 hr tablet Take 1 tablet by mouth once daily. 30 tablet 3 Blood-Glucose Meter 1 Device as directed. For once daily testing 1 Each 0 blood sugar diagnostic (BLOOD GLUCOSE TEST) test strip Test blood sugar(s) one times daily. Dx: Type 2 DM - Controlled E11.9 Insulin: No 50 Strip 11 Lancets Test blood sugar(s) one times daily. Dx: Type 2 DM - Controlled E11.9 Insulin: No 100 Each 11 Norethindrone, Contraceptive, (SELMA) 0.35 mg tablet Take 1 tablet by mouth once daily. 84 tablet 3 omeprazole (PRILOSEC) 20 mg capsule Take 1 capsule by mouth once daily. On empty stomach at least 30 minutes before eating. 90 capsule 1 ondansetron orally disintegrating (ZOFRAN ODT) 4 mg disintegrating tablet Take 1 tablet by mouth every 8 hours as needed for nausea/vomiting. 30 tablet 0 CPAP/BIPAP/OTHER Type .CPAPSettings into a note to see current settings/supplies/DME information. 1 Each 0 No current facility-administered medications for this visit. PAST SURGICAL HISTORY Procedure Laterality Date DDI [...] Social History Tobacco Use Smoking status: Former Current packs/day: 0.00 Types: Cigarettes Quit date: 2021 Years since quittin.8 Smokeless tobacco: Never Tobacco comments: Pt smoked 3 cigarettes daily x 2 months, quit 2022 Pt vapes Vaping Use Vaping status: current everyday user Substances: Nicotine, Flavoring Devices: Pre-filled or refillable cartridge Substance Use Topics Alcohol use: Not Currently Comment: occasional Drug use: Not Currently Types: Marijuana Objective BP 120/82 Pulse 97 Temp 36.4 ?C (97.6 ?F) Resp 18 Wt (!) 137.6 kg (303 lb 5.7 oz) LMP 03/31/2024 (Exact Date) SpO2 98% BMI 41.14 kg/m? Physical Exam Vitals reviewed. Constitutional: Appearance: Normal appearance. HENT: Head: Normocephalic and atraumatic. Right Ear: Tympanic membrane, ear canal and external ear normal. Left Ear: Tympanic membrane, ear canal and external ear normal. Nose: Congestion present. Right Sinus: Frontal sinus tenderness present. Left Sinus: Frontal sinus tenderness present. Cardiovascular: Rate and Rhythm: Normal rate and regular rhythm. Heart sounds: Nor (more content not included)...[facility] 05-19-2024 History of Present illness Narrative* Arthur Joseph PA-C - 05/19/2024 12:06 PM EST This note was created using GMEX. Subjective Katie Forde is a 23 year old female. HPI Presents with a chief complaint of sinus pain and pressure over the past 1 to 2 weeks. Denies cough. States she did have 1 bout of diarrhea yesterday but thinks maybe it was from something she ate. No chest pain or shortness of breath. No vomiting. She has had a frontal sinus pressure which seems to be worsening. She has had some sick contacts near her at home. No fever. Review of Systems Constitutional: Positive for fatigue. Negative for fever. HENT: Positive for congestion, postnasal drip, sinus pressure, sinus pain and sore throat. Negativefor ear pain. Respiratory: Negative for cough. Cardiovascular: Negative. Gastrointestinal: Negative. Genitourinary: Negative. Musculoskeletal: Negative. All other systems reviewed and are negative. PAST MEDICAL HISTORY Diagnosis Date ADHD (attention deficit hyperactivity disorder) Fatty liver GERD (gastroesophageal reflux disease) Marfan's syndrome VIRAL WARTS NOS 06/25/2008 resolved Current Outpatient Medications Medication Sig Dispense Refill doxycycline (VIBRA-TABS) 100 mg tablet Take 1 tablet by mouth two times a day for 7 days. 14 tablet0 amphetamine-dextroamphetamine XR (ADDERALL XR) 30 mg capsule Take 1 capsule by mouth every morning for 30 days. 30 capsule 0 methylphenidate (RITALIN) 20 mg tablet Take 1 tablet by mouth as needed for up to 30 days. Take at approx. 3-4 pm. 30 tablet 0 ibrexafungerp (BREXAFEMME) 150 mg tablet Take 2 tablets (300 mg) by mouth every 12 hours. 4 tablet 0 rizatriptan (MAXALT) 10 mg tablet Take 1 tablet (10 mg) by mouth as needed for migraine headache (see administration instructions). May repeat dose after 2 hours if needed. Maximum daily dose is 30 mg per day. 18 tablet 2 dulaglutide (TRULICITY) 1.5 mg/0.5 mL pen injector Inject 1.5 mg subcutaneously one time a week. 4 Each 2 buPROPion XL (WELLBUTRIN XL) 150 mg 24 hr tablet Take 1 tablet by mouth once daily. 30 tablet 3 Blood-Glucose Meter 1 Device as directed. For once daily testing 1 Each 0 blood sugar diagnostic (BLOOD GLUCOSE TEST) test strip Test blood sugar(s) one times daily. Dx: Type 2 DM - Controlled E11.9 Insulin: No 50 Strip 11 Lancets Test blood sugar(s) one times daily. Dx: Type 2 DM - Controlled E11.9 Insulin: No 100 Each 11 Norethindrone, Contraceptive, (SELMA) 0.35 mg tablet Take 1 tablet by mouth once daily. 84 tablet 3 omeprazole (PRILOSEC) 20 mg capsule Take 1 capsule by mouth once daily. On empty stomach at least 30 minutes before eating. 90 capsule 1 ondansetron orally disintegrating (ZOFRAN ODT) 4 mg disintegrating tablet Take 1 tablet by mouth every 8 hours as needed for nausea/vomiting. 30 tablet 0 CPAP/BIPAP/OTHER Type .CPAPSettings into a note to see current settings/supplies/DME information. 1Each 0 No current facility-administered medications for this visit. PAST SURGICAL HISTORY Procedure Laterality Date DDI [...] Social History Tobacco Use Smoking status: Former Current packs/day: 0.00 Types: Cigarettes Quit date: 2021 Years since quittin.8 Smokeless tobacco: Never Tobacco comments: Pt smoked 3 cigarettes daily x 2 months, quit 2021 Pt vapes Vaping Use Vaping status: current everyday user Substances: Nicotine, Flavoring Devices: Pre-filled or refillable cartridge Substance Use Topics Alcohol use: Not Currently Comment: occasional Drug use: Not Currently Types: Marijuana Objective BP 120/82 Pulse 97 Temp 36.4 C (97.6 F) Resp 18 Wt (!) 137.6 kg (303 lb 5.7 oz) LMP 03/31/2024 (Exact Date) SpO2 98% BMI 41.14 kg/m Physical Exam Vitals reviewed. Constitutional: Appearance: Normal appearance. HENT: Head: Normocephalic and atraumatic. Right Ear: Tympanic membrane, ear canal and external ear normal. Left Ear: Tympanic membrane, ear canal and external ear normal. Nose: Congestion present. Right Sinus: Frontal sinus tenderness present. Left Sinus: Frontal sinus tenderness present. Cardiovascular: Rate and Rhythm: Normal rate and regular rhythm. Heart sounds: Normal heart sounds. Pulmonary: Effort: Pulmonary effort is normal. Breath sounds: Normal breath sounds. Musculoskeletal: Cervical back: Neck supple. Lymphadenopathy: Cervical: No cervical adenopathy. Skin: General: Skin is warm and dry. Findings: No rash. Neurological: General: No focal deficit present. Mental Status: She is alert. Assessment and Plan ASSESSMENT/PLAN: 1. Acute non-recurrent frontal sinusitis - ICD9: 461.1, ICD10: J01.10 - Will begin treatment with Doxycycline, patient would like to avoid amoxicillin as it gives her yeast infections - Supportive care with plenty of fluids, rest, and analgesia prn. - Follow up in 3-5 days if symptoms persist or worsen. Arthur Joseph PA-C documented in this encounterFairfield [facility] Center11-19-2024 Telephone encounter Note * Telephone Encounter - Sher Hollingsworth APRN.CNP - 05/18/2024 7:12 AM EST [facility] All [facility] have been APPROPRIATELY filled. No suspiciousactivity was identified. 05/18/2024 by Sher Hollingsworth APRN.MERLIN [facility]11-19-2024 Miscellaneous Notes* Telephone Encounter - Sher Hollingsworth APRN.CNP - 05/18/2024 7:12 AM EST [facility] All prescriptions have been APPROPRIATELY filled. No suspiciousactivity was identified. 05/18/2024 by Sher Hollingsworth APRN.MERLIN * Telephone Encounter - Negin Recinos LPN - 05/17/2024 4:11 PM EST Prescription Refill Information The patient has been identified by name and date of : Yes Caregiver verified no other encounters exist for this prescription request: Yes Caregiver confirmed with patient/requestor that no other refills are due, in the near future, with this provider at this time: Yes The last office visit in the department: 04/30/24 Does the patient have a future office visit with this provider/department: Yes 08/09/24 Requested Prescriptions Pending Prescriptions Disp Refills amphetamine-dextroamphetamine XR (ADDERALL XR) 30 mg capsule 30 capsule 0 Sig: Take 1 capsule by mouth every morning for 30 days. methylphenidate (RITALIN) 20 mg tablet 30 tablet 0 Sig: Take 1 tablet by mouth as needed for up to 30 days. Take at approx. 3-4 pm. Negin Recinos LPN May 17, 2024 4:11 PM documented in this encounterFairfield [facility] Center11-18-2024 Telephone encounter Note * Telephone Encounter - Negin Recinos LPN - 05/17/2024 4:11 PM EST Prescription Refill Information The patient has been identified by name and date of : Yes Caregiver verified no other encounters exist for this prescription request: Yes Caregiver confirmed with patient/requestor that no other refills are due, in the near future, with this provider at this time: Yes The last office visit in the department: 04/30/24 Does the patient have a future office visit with this provider/department: Yes 08/09/24 Requested Prescriptions Pending Prescriptions Disp Refills amphetamine-dextroamphetamine XR (ADDERALL XR) 30 mg capsule 30 capsule 0 Sig: Take 1 capsule by mouth every morning for 30 days. methylphenidate (RITALIN) 20 mg tablet 30 tablet 0 Sig: Take 1 tablet by mouth as needed for up to 30 days. Take at approx. 3-4 pm. Negin Recinos LPN May 17, 2024 4:11 PM [facility]11-14-2024 Telephone encounter Note* Telephone Encounter - Kelly Nunez APRN.CNM - 05/13/2024 1:03 PM EST Patient's swabs are negative for Yeast or Bacterial infection. The medication prescribed can be used to treat for yeast OR for prevention of recurrent yeast infections. Patient should take medications if provider recommended. It is not clear in note whether patient should take medications regardless of results. Kelly Nunez APRN.CNM [facility] Work Phone: [phone]) 521-251811-14-2024 Miscellaneous Notes* Telephone Encounter - Kelly Nunez APRN.CNM - 05/13/2024 1:03 PM EST Patient's swabs are negative for Yeast or Bacterial infection. The medication prescribed can be used to treat for yeast OR for prevention of recurrent yeast infections. Patient should take medications if provider recommended. It is not clear in note whether patient should take medications regardless of results. Kelly Nunez APRN.CNM * Telephone Encounter - Princess Govea RN - 05/13/2024 10:02 AM EST Please see Pt's mychart messages from today and address in [place] and RM absence. Pt seen in office yesterday for vulvar itching. She will be picking up Brexafemme from [facility] today to start that. Please advise Pt on what she needs to do.Princess Govea RN documented in this encounterFairfield [facility] Center11-14-2024 Telephone encounter Note * Telephone Encounter - Princess Govea RN - 05/13/2024 10:02 AM EST Please see Pt's mychart messages from today and address in [place] and absence. Pt seen in office yesterday for vulvar itching. She will be picking up Brexafemme from [facility] today to start that. Please advise Pt on what she needs to do.Princess Govea RN [facility]11-13-2024 NoteHNO ID: [id number] Author: REBECA BEASLEY APRN.CNM Service: ? Author Type: Multiple Pressure Riveter Operator Type: Progress Notes Filed: 05/12/2024 16:49 Note Text: 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 Katie Forde is a 23 year old female who presents for problem visit vulvar and vaginal itching. HPI: Complaint of recurrent vaginal yeast infections over last year. Prior to this year only 1 or 2 a year. Currently blood glucose under control and HgbA1C improved. Vaginal itching and vulvar itching. No new sexual partners and declines STD testing. 03/04/24 Fluconazole 150mg PO x 3 doses, no resolution. No testing completed 02/18/24 Monistat, no testing 02/10/24 Positive Yeimy 12/12/23 Positive Yeimy Fluconzaole 150mg PO once 09/11/23 Positive Yeimy Long-term Diflucan treatment ordered along with recommending boric acid vaginal suppositories x 14 nights and then weekly. Also recommended using boric acid vaginal suppositories after every active intercourse to maintain pH balance. Patient did not follow up with this plan. 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 History Comments: Sexual Activity: Not Currently; Male Contraception: None PAST MEDICAL HISTORY Diagnosis Date ADHD (attention [...] Social History Tobacco Use Smoking status: Former Current packs/day: 0.00 Types: Cigarettes Quit date: 2021 Years since quittin.8 Smokeless tobacco: Never Tobacco comments: Pt smoked 3 cigarettes daily x 2 months, quit 2021 Pt vapes Vaping Use Vaping status: current everyday user Substances: Nicotine, Flavoring Devices: Pre-filled or refillable cartridge Substance Use Topics Alcohol use: Not Currently Comment: occasional Drug use: Not Currently Types: Marijuana Current Outpatient Medications Medication Sig rizatriptan (MAXALT) 10 mg tablet Take 1 tablet (10 mg) by mouth as needed for migraine headache (see administration instructions). May repeat dose after 2 hours if needed. Maximum daily dose is 30 mg per day. amphetamine-dextroamphetamine XR (ADDERALL XR) 30 mg capsule Take 1 capsule by mouth every morning for 30 days. methylphenidate (RITALIN) 20 mg tablet Take 1 tablet by mouth as needed for up to 30 days. Take at approx. 3-4 pm. dulaglutide (TRULICITY) 1.5 mg/0.5 mL pen injector Inject 1.5 mg subcutaneously one time a week. buPROPion XL (WELLBUTRIN XL) 150 mg 24 hr tablet Take 1 tablet by mouth once daily. Blood-Glucose Meter 1 Device as directed. For once daily testing blood sugar diagnostic (BLOOD GLUCOSE TEST) test strip Test blood sugar(s) one times daily. Dx: Type 2 DM - Controlled E11.9 Insulin: No Lancets Test blood sugar(s) one times daily. Dx: Type 2 DM - Controlled E11.9 Insulin: No Norethindrone, Contraceptive, (SELMA) 0.35 mg tablet Take 1 tablet by mouth once daily. omeprazole (PRILOSEC) 20 mg capsule Take 1 capsule by mouth once daily. On empty stomach at least 30 minutes before eating. ondansetron orally disintegrating (ZOFRAN ODT) 4 mg disintegrating tablet Take 1 tablet by mouth every 8 hours as needed for nausea/vomiting. CPAP/BIPAP/OTHER Type .CPAPSettings into a note to see current settings/supplies/DME information. ibrexafungerp (BREXAFEMME) 150 mg tablet Take 2 tablets (300 mg) by mouth every 12 hours. No current facility-administered medications for this visit. Allergies As of Date: 05/12/2024 (No Known Allergies) Fully Assessed 05/12/2024 REVIEW OF SYSTEMS Abdomen: No bloating, early satiety, indigestion, or increased flatulence. No abdominal pain, nausea, vomiting, diarrhea, or constipation. Bladder: No dysuria, gross hematuria, urinary frequency, urinary urgency, or incontinence. Breast: No breast lumps, nipple d/c, overlying skin changes, redness or skin retraction. Expanded ROS: N/A Allergies and current medication updated:Yes SENSITIVE EXAM: The sensitive examination was discu (more content not included)...[facility]11-13-2024 History of Present illness Narrative* Rebeca Beasley APRN.DIEGO - 05/12/2024 3:56 PM EST 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 Katie Forde is a 23 year old female who presents for problem visit vulvar and vaginal itching. HPI: Complaint of recurrent vaginal yeast infections over last year. Prior to this year only 1 or 2 a year. Currently blood glucose under control and HgbA1C improved. Vaginal itching and vulvar itching. No new sexual partners and declines STD testing. 03/04/24 Fluconazole 150mg PO x 3 doses, no resolution. No testing completed 02/18/24 Monistat, no testing 02/10/24 Positive Yeimy 12/12/23 Positive Yeimy Fluconzaole 150mg PO once 09/11/23 Positive Yeimy Long-term Diflucan treatment ordered along with recommending boric acid vaginal suppositories x 14 nights and then weekly. Also recommended using boric acid vaginal suppositories after every active intercourse to maintain pH balance. Patient did not follow up with this plan. 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 History Comments: Sexual Activity: Not Currently; Male Contraception: None PAST MEDICAL HISTORY Diagnosis Date ADHD (attention [...] Social History Tobacco Use Smoking status: Former Current packs/day: 0.00 Types: Cigarettes Quit date: 2021 Years since quittin.8 Smokeless tobacco: Never Tobacco comments: Pt smoked 3 cigarettes daily x 2 months, quit 2021 Pt vapes Vaping Use Vaping status: current everyday user Substances: Nicotine, Flavoring Devices: Pre-filled or refillable cartridge Substance Use Topics Alcohol use: Not Currently Comment: occasional Drug use: Not Currently Types: Marijuana Current Outpatient Medications Medication Sig rizatriptan (MAXALT) 10 mg tablet Take 1 tablet (10 mg) by mouth as needed for migraine headache (see administration instructions). May repeat dose after 2 hours if needed. Maximum daily dose is 30 mg per day. amphetamine-dextroamphetamine XR (ADDERALL XR) 30 mg capsule Take 1 capsule by mouth every morning for 30 days. methylphenidate (RITALIN) 20 mg tablet Take 1 tablet by mouth as needed for up to 30 days. Take at approx. 3-4 pm. dulaglutide (TRULICITY) 1.5 mg/0.5 mL pen injector Inject 1.5 mg subcutaneously one time a week. buPROPion XL (WELLBUTRIN XL) 150 mg 24 hr tablet Take 1 tablet by mouth once daily. Blood-Glucose Meter 1 Device as directed. For once daily testing blood sugar diagnostic (BLOOD GLUCOSE TEST) test strip Test blood sugar(s) one times daily. Dx: Type 2 DM - Controlled E11.9 Insulin: No Lancets Test blood sugar(s) one times daily. Dx: Type 2 DM - Controlled E11.9 Insulin: No Norethindrone, Contraceptive, (SELMA) 0.35 mg tablet Take 1 tablet by mouth once daily. omeprazole (PRILOSEC) 20 mg capsule Take 1 capsule by mouth once daily. On empty stomach at least 30 minutes before eating. ondansetron orally disintegrating (ZOFRAN ODT) 4 mg disintegrating tablet Take 1 tablet by mouth every 8 hours as needed for nausea/vomiting. CPAP/BIPAP/OTHER Type .CPAPSettings into a note to see current settings/supplies/DME information. ibrexafungerp (BREXAFEMME) 150 mg tablet Take 2 tablets (300 mg) by mouth every 12 hours. No current facility-administered medications for this visit. Allergies As of Date: 05/12/2024 (No Known Allergies) Fully Assessed 05/12/2024 REVIEW OF SYSTEMS Abdomen: No bloating, early satiety, indigestion, or increased flatulence. No abdominal pain, nausea, vomiting, diarrhea, or constipation. Bladder: No dysuria, gross hematuria, urinary frequency, urinary urgency, or incontinence. Breast: No breast lumps, nipple d/c, overlying skin changes, redness or skin retraction. Expanded ROS: N/A Allergies and current medication updated:Yes SENSITIVE EXAM: The sensitive examination was discussed with the Patient or Patient's Authorized Tin Pot Operator. As applicable, any other physician, advance practice provider, medical student, or other health professional student that will be observing or involved in the sensitive examination for educational or training purposes was discussed with the Patient or Authorized Tin Pot Operator. The Patient or Authorized Tin Pot Operator has agreed to proceed with the sensitive examination. (Sensitive examination includes inspection and/or palpation of the breasts, pelvis, prostate and anorectal regions). EXAM: BP 120/80 Wt 301 lb 3.2 oz (136.6kg) LMP 03/31/2024 GENERAL: pleasant, female in no apparent distress PELVIC: external genitalia normal, normal Bartholin's glands, urethra, So-Hi's glands, no vulvar lesions, no cervical lesions, good vaginal support, physiologic discharge present, normal appearing perineal body and perianal region BIMANUAL: uterus normal size, shape and consistency, no adnexal masses, and non-tender NEURO: alert and oriented x3,exam grossly non-focal EXTREMITIES: normal ASSESSMENT AND PLAN: 1. Vaginal discharge - ICD9: 623.5, ICD10: N89.8 (primary diagnosis) - BACTERIAL VAGINOSIS NAAT - YEIMY/TRICHOMONAS NAAT 2. Vaginal itching - ICD9: 698.1, ICD10: N89.8 3. Vulvar itching - ICD9: 698.1, ICD10: L29.2 -Reviewed if continued after results and treatment, recommend vulvar biopsy. -Discussed treatment for vulvar steroid ointment after treatment Rebeca Beasley APRN.CNM documented in this [facility]11-[facility]24 NoteHNO ID: [id number] Author: SHER HOLLINGSWORTH APRN.CNP Service: ? Author Type: Nurse Practitioner Type: Progress Notes Filed: 04/30/2024 13:35 Note Text: SUBJECTIVE Katie Forde is a 23 year old female here today for a check up on her medical problems. Chief Complaint Patient presents with: Recheck Urinary Frequency HPI Katie Forde is a 23 year old female. She is an established patient of Kate Silva MD. Here today for follow up, accompanied by mom. Follow up on DM, sugars are running mostly low 100's-90's. Injection seems more painful with the higher dose. Had some low abdominal pain but thinks this resolved. Some cramping, some urinary frequency. Has been working with manager club for issues with persistent vaginal yeast infections. Still issues with migraines. Imitrex not as helpful. Getting migraines frequently. Thinks 10 a month. Her medications were reviewed today and her list is now up to date. Medications Current Outpatient Medications Medication Sig amphetamine-dextroamphetamine XR (ADDERALL XR) 30 mg capsule Take 1 capsule by mouth every morning for 30 days. methylphenidate (RITALIN) 20 mg tablet Take 1 tablet by mouth as needed for up to 30 days. Take at approx. 3-4 pm. dulaglutide (TRULICITY) 1.5 mg/0.5 mL pen injector Inject 1.5 mg subcutaneously one time a week. buPROPion XL (WELLBUTRIN XL) 150 mg 24 hr tablet Take 1 tablet by mouth once daily. Norethindrone, Contraceptive, (SELMA) 0.35 mg tablet Take 1 tablet by mouth once daily. omeprazole (PRILOSEC) 20 mg capsule Take 1 capsule by mouth once daily. On empty stomach at least 30 minutes before eating. ondansetron orally disintegrating (ZOFRAN ODT) 4 mg disintegrating tablet Take 1 tablet by mouth every 8 hours as needed for nausea/vomiting. rizatriptan (MAXALT) 10 mg tablet Take 1 tablet (10 mg) by mouth as needed for migraine headache (see administration instructions). May repeat dose after 2 hours if needed. Maximum daily dose is 30 mg per day. Blood-Glucose Meter 1 Device as directed. For once daily testing blood sugar diagnostic (BLOOD GLUCOSE TEST) test strip Test blood sugar(s) one times daily. Dx: Type 2 DM - Controlled E11.9 Insulin: No Lancets Test blood sugar(s) one times daily. Dx: Type 2 DM - Controlled E11.9 Insulin: No CPAP/BIPAP/OTHER Type .CPAPSettings into a note to see current settings/supplies/DME information. No current facility-administered medications for this visit. ALLERGIES No Known Allergies ACTIVE PROBLEM LIST Type 2 Diabetes Mellitus Without Complication, Without Long-Term Current Use of Insulin (Hcc) - 01/27/2024 Fatty Liver - 01/27/2024 Obesity, Class III, BMI >= 40 - 09/30/2022 Anxiety - 03/12/2022 Pain in Right Foot - 03/12/2022 Lab Test Positive for Detection of Covid-19 Virus - 07/04/2020 Oppositional Defiant Disorder - 02/03/2017 Migraine Without Status Migrainosus, Not Intractable - 04/22/2016 Depersonalization Disorder (Hcc) - 12/05/2015 Depression - 09/24/2013 Comment: followed by psychiatry Outbursts of Anger - 10/12/2012 Subluxation of Lens Comment: bilaterally Attention Deficit Hyperactivity Disorder (Adhd), Combined Type - 09/22/2008 Marfan's Syndrome - 03/05/2006 Social History Tobacco Use Smoking status: Former Current packs/day: 0.00 Types: Cigarettes Quit date: 2021 Years since quittin.8 Smokeless tobacco: Never Tobacco comments: Pt smoked 3 cigarettes daily x 2 months, quit 2021 Pt vapes Vaping Use Vaping status: current everyday user Substances: Nicotine, Flavoring Devices: Pre-filled or refillable cartridge Substance Use Topics Alcohol use: Not Currently Comment: occasional Drug use: Not Currently Types: Marijuana Review of Systems Constitutional: Negative. Respiratory: Negative. Cardiovascular: Negative. OBJECTIVE BP 110/82 Pulse 95 Wt 300 lb 0.7 oz (136.1kg) SpO2 99% LMP 03/31/2024 Physical Exam Vitals and nursing note reviewed. Constitutional: General: She is awake. She is not in acute distress. Appearance: Normal appearance. She is well-developed and well-groomed. She is not ill-appearing, toxic-appearing or diaphoretic. HENT: Head: Normocephalic. Right Ear: External ear normal. Left Ear: External ear normal. Nose: Nose normal. Eyes: General: Vision grossly intact. Conjunctiva/sclera: Conjunctivae normal. Pupils: Pupils are equal, round, and reactive to light. Neck: Vascular: No JVD. Trachea: Trachea normal. Cardiovascular: Pulses: Normal pulses. Dorsalis pedis pulses are 2+ on the right side and 2+ on the left side. Posterior tibial pulses are 2+ on the right side and 2+ on the left side. Pulmonary: Effort: Pulmonary effort is normal. No accessory muscle usage, prolonged expiration or respiratory distress. Musculoskeletal: Cervical back: Neck supple. Right foot: Normal range of motion. No deformity or bunion. Left foot: Normal rang (more content not included)...[facility] 04-30-2024 History of Present illness Narrative* Sher Hollingsworth APRN.[employer] - 04/30/2024 12:58 PM EDT SUBJECTIVE Katie Forde is a 23 year old female here today for a check up on her medical problems. Chief Complaint Patient presents with: Recheck Urinary Frequency HPI Katie Forde is a 23 year old female. She is an established patient of Kate Silva MD. Here today for follow up, accompanied by mom. Follow up on DM, sugars are running mostly low 100's-90's. Injection seems more painful with the higher dose. Had some low abdominal pain but thinks this resolved. Some cramping, some urinary frequency. Has been working with manager [employer] for issues with persistent vaginal yeast infections. Still issues with migraines. Imitrex not as helpful. Getting migraines frequently. Thinks 10 a month. Her medications were reviewed today and her list is now up to date. Medications Current Outpatient Medications Medication Sig amphetamine-dextroamphetamine XR (ADDERALL XR) 30 mg capsule Take 1 capsule by mouth every morning for 30 days. methylphenidate (RITALIN) 20 mg tablet Take 1 tablet by mouth as needed for up to 30 days. Take at approx. 3-4 pm. dulaglutide (TRULICITY) 1.5 mg/0.5 mL pen injector Inject 1.5 mg subcutaneously one time a week. buPROPion XL (WELLBUTRIN XL) 150 mg 24 hr tablet Take 1 tablet by mouth once daily. Norethindrone, Contraceptive, (SELMA) 0.35 mg tablet Take 1 tablet by mouth once daily. omeprazole (PRILOSEC) 20 mg capsule Take 1 capsule by mouth once daily. On empty stomach at least 30 minutes before eating. ondansetron orally disintegrating (ZOFRAN ODT) 4 mg disintegrating tablet Take 1 tablet by mouth every 8 hours as needed for nausea/vomiting. rizatriptan (MAXALT) 10 mg tablet Take 1 tablet (10 mg) by mouth as needed for migraine headache (see administration instructions). May repeat dose after 2 hours if needed. Maximum daily dose is 30 mg per day. Blood-Glucose Meter 1 Device as directed. For once daily testing blood sugar diagnostic (BLOOD GLUCOSE TEST) test strip Test blood sugar(s) one times daily. Dx: Type 2 DM - Controlled E11.9 Insulin: No Lancets Test blood sugar(s) one times daily. Dx: Type 2 DM - Controlled E11.9 Insulin: No CPAP/BIPAP/OTHER Type .CPAPSettings into a note to see current settings/supplies/DME information. No current facility-administered medications for this visit. ALLERGIES No Known Allergies ACTIVE PROBLEM LIST Type 2 Diabetes Mellitus Without Complication, Without Long-Term Current Use of Insulin (Hcc) - 01/27/2024 Fatty Liver - 01/27/2024 Obesity, Class III, BMI >= 40 - 09/30/2022 Anxiety - 03/12/2022 Pain in Right Foot - 03/12/2022 Lab Test Positive for Detection of Covid-19 Virus - 07/04/2020 Oppositional Defiant Disorder - 02/03/2017 Migraine Without Status Migrainosus, Not Intractable - 04/22/2016 Depersonalization Disorder (Hcc) - 12/05/2015 Depression - 09/24/2013 Comment: followed by psychiatry Outbursts of Anger - 10/12/2012 Subluxation of Lens Comment: bilaterally Attention Deficit Hyperactivity Disorder (Adhd), Combined Type - 09/22/2008 Marfan's Syndrome - 03/05/2006 Social History Tobacco Use Smoking status: Former Current packs/day: 0.00 Types: Cigarettes Quit date: 2021 Years since quittin.8 Smokeless tobacco: Never Tobacco comments: Pt smoked 3 cigarettes daily x 2 months, quit 2021 Pt vapes Vaping Use Vaping status: current everyday user Substances: Nicotine, Flavoring Devices: Pre-filled or refillable cartridge Substance Use Topics Alcohol use: Not Currently Comment: occasional Drug use: Not Currently Types: Marijuana Review of Systems Constitutional: Negative. Respiratory: Negative. Cardiovascular: Negative. OBJECTIVE BP 110/82 Pulse 95 Wt 300 lb 0.7 oz (136.1kg) SpO2 99% LMP 03/31/2024 Physical Exam Vitals and nursing note reviewed. Constitutional: General: She is awake. She is not in acute distress. Appearance: Normal appearance. She is well-developed and well-groomed. She is not ill-appearing, toxic-appearing or diaphoretic. HENT: Head: Normocephalic. Right Ear: External ear normal. Left Ear: External ear normal. Nose: Nose normal. Eyes: General: Vision grossly intact. Conjunctiva/sclera: Conjunctivae normal. Pupils: Pupils are equal, round, and reactive to light. Neck: Vascular: No JVD. Trachea: Trachea normal. Cardiovascular: Pulses: Normal pulses. Dorsalis pedis pulses are 2+ on the right side and 2+ on the left side. Posterior tibial pulses are 2+ on the right side and 2+ on the left side. Pulmonary: Effort: Pulmonary effort is normal. No accessory muscle usage, prolonged expiration or respiratory distress. Musculoskeletal: Cervical back: Neck supple. Right foot: Normal range of motion. No deformity or bunion. Left foot: Normal range of motion. No deformity or bunion. Feet: Right foot: Protective Sensation: 3 sites tested. 3 sites sensed. Skin integrity: Skin integrity normal. Left foot: Protective Sensation: 3 sites tested. 3 sites sensed. Skin integrity: Skin integrity normal. Skin: General: Skin is warm and dry. Capillary Refill: Capillary refill takes less than 2 seconds. Neurological: General: No focal deficit present. Mental Status: She is alert and oriented to person, place, and time. Mental status is at baseline. Psychiatric: Attention and Perception: Attention and perception normal. Mood and Affect: Mood and affect normal. Speech: Speech normal. Behavior: Behavior normal. Behavior is cooperative. Thought Content: Thought content normal. Cognition and Memory: Cognition and memory normal. Judgment: Judgment normal. Diabetic Foot Exam: Feet:Shoes and socks removed, Are you having foot pain no, No deformities, ulcers, calluses, normal distal pulses, and sensitive to 10 gm monofilament ASSESSMENT/PLAN: 1. Type 2 diabetes mellitus without complication, without long-term current use of insulin ([facility]) - ICD9: 250.00, ICD10: E11.9 (primary diagnosis) - Improving control - Continue current medications - Counseled on healthy diet and regular exercise - Discussed need for and benefit of weight loss. BMI 40.69 kg/(m^2) - HEMOGLOBIN A1C (POC) 2. Urinary frequency - ICD9: 788.41, ICD10: R35.0 Check urine dip, might be related to her frequent yeast infections. - UA DIP B/O 3. Migraine without status migrainosus, not intractable, unspecified migraine type - ICD9: 346.90, ICD10: G43.909 [address] try [address] in place of Imitrex. - RIZATRIPTAN 10 MG TABLET 4. Vaginal yeast infection - ICD9: 112.1, ICD10: B37.31 Working with manager club. Portions of this note have been entered by ancillary staff. I have reviewed and when necessary edited, so that they are an adequate record of my encounter with this patient Please note that parts of this document were created using voice recognition software and therefore may contain grammatical errors. Patient verbalizes understanding of instructions from today's visit and in agreement with treatmentplan. Questions answered. Agrees to call the office if questions, concerns of issues with acute symptoms not improving or if they worsen. See diagnoses and orders for additional plan(s). Allergies and medications were reviewed, list was updated, and refills given if needed. Past medical, surgical, social, and family history reviewed and updated as appropriate. Encouraged proper diet & exercise as well as compliance with taking medications. Age- appropriate health preventative measures were discussed. Return in about 3 months (around 07/31/2024) for Follow up on chronic conditions and medications.. Sher Hollingsworth APRN-MERLIN documented in this encounterFair[facility]11-01-[facility]24 Instructions* Patient Instructions* Negin Recinos LPN - 04/30/2024 12:58 PM EDT Images from the original note were not included. Urinary Problem-When to Seek Help? Symptoms of a urinary problem may lead to a bladder infection. Women are at greater risk of a urinary tract infection than are men. Most urinary tract infections in women are caused by bacteria and involve the lower urinary tract including the bladder and urethra. Symptoms: Pain or burning when passing urine, urgency, frequency, blood in the urine, difficult emptying your bladder, and lower abdominal fullness or pressure. Common Causes: Sexual intercourse, menopause, constipation, uncontrolled diabetes, dehydration and feminine products such as tampons, and kidney stones. When to Get Help: Seek medical attention if you get frequent bladder infections, urinary concerns such as leakage, blood in the urine or frequent need to urinate. You may be recommended to get help from a specialist, such as a urologist. Diagnosis & Treatment: Lab testing may include: urinalysis, and urine culture that can be collected in the lab or walk-in clinic. Most bladder infections can easily be treated. A physician, nurse practitioner or physician librarian assistant may treat with a short course of an antibiotic. Delaying treatment can lead to worsening symptoms, like a kidney infection. Self-Care: Avoid a full bladder, bubble baths, bath oils, food and beverages that may irritate the bladder such as caffeine. Avoid spermicide foam and diaphragms Void before and after sexual intercourse Wipe front to back after using the bathroom. Stay hydrated Stop Smoking Follow-up Care: Follow up testing is not needed in healthy young women if symptoms resolve. documented in this encounterFairfield [facility] Center10-15-2024 Telephone encounter Note * Telephone Encounter - Karen Urias LPN - 04/13/2024 3:43 PM EDT Patient has been identified by name and [...] of last office visit in primary care: 06/11/2022 Date of next office visit in primary care: 04/30/2024 Please advise. Thank you. Karen Urias LPN. [place] [facility] Misc[facility] Notes* Telephone Encounter - Karen Urias LPN - 04/13/2024 3:43 PM EDT Patient has been identified by name and [...] of last office visit in primary care: 06/11/2022 Date of next office visit in primary care: 04/30/2024 Please advise. Thank you. Karen Urias LPN. documented in this [facility]24 NoteHNO ID: [id number] Author: SHER HOLLINGSWORTH APRN.ELECTR[employer] MECH[employer]IC Service: ? Author Type: Nurse Practitioner Type: Progress Notes Filed: 03/19/2024 11:03 Note Text: SUBJECTIVE Katie Forde is a 23 year old female here today for a check up on her medical problems. Chief Complaint Patient presents with: F/U 3 Month: diabetes HPI Katie Forde is a 23 year old female. She is an established patient of Kate Silva MD. Here today for follow up. Accompanied by mother. Currently on Trulicity for newly diagnosed DM, tolerating this well. Weight down. Checking sugars on the weekends, running low 100's on average. Wants help to quit vaping. Her medications were reviewed today and her list is now up to date. Medications Current Outpatient Medications Medication Sig amphetamine-dextroamphetamine XR (ADDERALL XR) 30 mg capsule Take 1 capsule by mouth every morning for 30 days. methylphenidate (RITALIN) 20 mg tablet Take 1 tablet by mouth as needed for up to 30 days. Take at approx. 3-4 pm. SUMAtriptan (IMITREX) 100 mg tablet Take 1 tablet (100 mg) by mouth as needed for migraine headache (see administration instructions). Take 1 by mouth at onset of migraine. May repeat after 2 hours as needed Norethindrone, Contraceptive, (SLEMA) 0.35 mg tablet Take 1 tablet by mouth once daily. omeprazole (PRILOSEC) 20 mg capsule Take 1 capsule by mouth once daily. On empty stomach at least 30 minutes before eating. ondansetron orally disintegrating (ZOFRAN ODT) 4 mg disintegrating tablet Take 1 tablet by mouth every 8 hours as needed for nausea/vomiting. dulaglutide (TRULICITY) 1.5 mg/0.5 mL pen injector Inject 1.5 mg subcutaneously one time a week. buPROPion XL (WELLBUTRIN XL) 150 mg 24 hr tablet Take 1 tablet by mouth once daily. Blood-Glucose Meter 1 Device as directed. For once daily testing blood sugar diagnostic (BLOOD GLUCOSE TEST) test strip Test blood sugar(s) one times daily. Dx: Type 2 DM - Controlled E11.9 Insulin: No Lancets Test blood sugar(s) one times daily. Dx: Type 2 DM - Controlled E11.9 Insulin: No CPAP/BIPAP/OTHER Type .CPAPSettings into a note to see current settings/supplies/DME information. No current facility-administered medications for this visit. ALLERGIES No Known Allergies ACTIVE PROBLEM LIST Type 2 Diabetes Mellitus Without Complication, Without Long-Term Current Use of Insulin (Hcc) - 01/27/2024 Fatty Liver - 01/27/2024 Obesity, Class III, BMI >= 40 - 09/30/2022 Anxiety - 03/12/2022 Pain in Right Foot - 03/12/2022 Lab Test Positive for Detection of Covid-19 Virus - 07/04/2020 Oppositional Defiant Disorder - 02/03/2017 Migraine Without Status Migrainosus, Not Intractable - 04/22/2016 Depersonalization Disorder (Hcc) - 12/05/2015 Depression - 09/24/2013 Comment: followed by psychiatry Outbursts of Anger - 10/12/2012 Subluxation of Lens Comment: bilaterally Attention Deficit Hyperactivity Disorder (Adhd), Combined Type - 09/22/2008 Marfan's Syndrome - 03/05/2006 Social History Tobacco Use Smoking status: Former Current packs/day: 0.00 Types: Cigarettes Quit date: 2021 Years since quittin.7 Smokeless tobacco: Never Tobacco comments: Pt smoked 3 cigarettes daily x 2 months, quit 2021 Pt vapes Vaping Use Vaping status: current everyday user Substances: Nicotine, Flavoring Devices: Pre-filled or refillable cartridge Substance Use Topics Alcohol use: Not Currently Comment: occasional Drug use: Not Currently Types: Marijuana Review of Systems Constitutional: Negative. Respiratory: Negative. Cardiovascular: Negative. OBJECTIVE BP 118/88 Pulse 103 Wt 306 lb 14.1 oz (139.2kg) SpO2 97% LMP 03/02/2024 Physical Exam Vitals and nursing note reviewed. Constitutional: General: She is awake. She is not in acute distress. Appearance: Normal appearance. She is well-developed and well-groomed. She is not ill-appearing, toxic-appearing or diaphoretic. HENT: Head: Normocephalic. Right Ear: External ear normal. Left Ear: External ear normal. Nose: Nose normal. Eyes: General: Vision grossly intact. Conjunctiva/sclera: Conjunctivae normal. Pupils: Pupils are equal, round, and reactive to light. Neck: Vascular: No JVD. Trachea: Trachea normal. Cardiovascular: Rate and Rhythm: Normal rate and regular rhythm. Pulses: Normal pulses. Heart sounds: Normal heart sounds. No murmur heard. Pulmonary: Effort: Pulmonary effort is normal. No accessory muscle usage, prolonged expiration or respiratory distress. Breath sounds: Normal breath sounds. Musculoskeletal: Cervical back: Neck supple. Skin: General: Skin is warm and dry. Capillary Refill: Capillary refill takes less than 2 seconds. Neurological: General: No focal deficit present. Mental Status: She is alert and oriented to person, place, and time. Mental status is at baseline. Psychiatric: Attention and Perception: Attention a (more content not included)...[facility]09-20-2024 History of Present illness Narrative* Sher Hollingsworth APRN.ELECT[employer] MECHANIC - 03/19/2024 10:08 AM EDT SUBJECTIVE Katie Forde is a 23 year old female here today for a check up on her medical problems. Chief Complaint Patient presents with: F/U 3 Month: diabetes HPI Katie Forde is a 23 year old female. She is an established patient of Kate Silva MD. Here today for follow up. Accompanied by mother. Currently on Trulicity for newly diagnosed DM, tolerating this well. Weight down. Checking sugars on the weekends, running low 100's on average. Wants help to quit vaping. Her medications were reviewed today and her list is now up to date. Medications Current Outpatient Medications Medication Sig amphetamine-dextroamphetamine XR (ADDERALL XR) 30 mg capsule Take 1 capsule by mouth every morning for 30 days. methylphenidate (RITALIN) 20 mg tablet Take 1 tablet by mouth as needed for up to 30 days. Take at approx. 3-4 pm. SUMAtriptan (IMITREX) 100 mg tablet Take 1 tablet (100 mg) by mouth as needed for migraine headache(see administration instructions). Take 1 by mouth at onset of migraine. May repeat after 2 hours as needed Norethindrone, Contraceptive, (SELMA) 0.35 mg tablet Take 1 tablet by mouth once daily. omeprazole (PRILOSEC) 20 mg capsule Take 1 capsule by mouth once daily. On empty stomach at least 30 minutes before eating. ondansetron orally disintegrating (ZOFRAN ODT) 4 mg disintegrating tablet Take 1 tablet by mouth every 8 hours as needed for nausea/vomiting. dulaglutide (TRULICITY) 1.5 mg/0.5 mL pen injector Inject 1.5 mg subcutaneously one time a week. buPROPion XL (WELLBUTRIN XL) 150 mg 24 hr tablet Take 1 tablet by mouth once daily. Blood-Glucose Meter 1 Device as directed. For once daily testing blood sugar diagnostic (BLOOD GLUCOSE TEST) test strip Test blood sugar(s) one times daily. Dx: Type 2 DM - Controlled E11.9 Insulin: No Lancets Test blood sugar(s) one times daily. Dx: Type 2 DM - Controlled E11.9 Insulin: No CPAP/BIPAP/OTHER Type .CPAPSettings into a note to see current settings/supplies/DME information. No current facility-administered medications for this visit. ALLERGIES No Known Allergies ACTIVE PROBLEM LIST Type 2 Diabetes Mellitus Without Complication, Without Long-Term Current Use of Insulin (Hcc) - 01/27/2024 Fatty Liver - 01/27/2024 Obesity, Class III, BMI >= 40 - 09/30/2022 Anxiety - 03/12/2022 Pain in Right Foot - 03/12/2022 Lab Test Positive for Detection of Covid-19 Virus - 07/04/2020 Oppositional Defiant Disorder - 02/03/2017 Migraine Without Status Migrainosus, Not Intractable - 04/22/2016 Depersonalization Disorder (Hcc) - 12/05/2015 Depression - 09/24/2013 Comment: followed by psychiatry Outbursts of Anger - 10/12/2012 Subluxation of Lens Comment: bilaterally Attention Deficit Hyperactivity Disorder (Adhd), Combined Type - 09/22/2008 Marfan's Syndrome - 03/05/2006 Social History Tobacco Use Smoking status: Former Current packs/day: 0.00 Types: Cigarettes Quit date: 2021 Years since quittin.7 Smokeless tobacco: Never Tobacco comments: Pt smoked 3 cigarettes daily x 2 months, quit 2021 Pt vapes Vaping Use Vaping status: current everyday user Substances: Nicotine, Flavoring Devices: Pre-filled or refillable cartridge Substance Use Topics Alcohol use: Not Currently Comment: occasional Drug use: Not Currently Types: Marijuana Review of Systems Constitutional: Negative. Respiratory: Negative. Cardiovascular: Negative. OBJECTIVE BP 118/88 Pulse 103 Wt 306 lb 14.1 oz (139.2kg) SpO2 97% LMP 03/02/2024 Physical Exam Vitals and nursing note reviewed. Constitutional: General: She is awake. She is not in acute distress. Appearance: Normal appearance. She is well-developed and well-groomed. She is not ill-appearing, toxic-appearing or diaphoretic. HENT: Head: Normocephalic. Right Ear: External ear normal. Left Ear: External ear normal. Nose: Nose normal. Eyes: General: Vision grossly intact. Conjunctiva/sclera: Conjunctivae normal. Pupils: Pupils are equal, round, and reactive to light. Neck: Vascular: No JVD. Trachea: Trachea normal. Cardiovascular: Rate and Rhythm: Normal rate and regular rhythm. Pulses: Normal pulses. Heart sounds: Normal heart sounds. No murmur heard. Pulmonary: Effort: Pulmonary effort is normal. No accessory muscle usage, prolonged expiration or respiratory distress. Breath sounds: Normal breath sounds. Musculoskeletal: Cervical back: Neck supple. Skin: General: Skin is warm and dry. Capillary Refill: Capillary refill takes less than 2 seconds. Neurological: General: No focal deficit present. Mental Status: She is alert and oriented to person, place, and time. Mental status is at baseline. Psychiatric: Attention and Perception: Attention and perception normal. Mood and Affect: Mood and affect normal. Speech: Speech normal. Behavior: Behavior normal. Behavior is cooperative. Thought Content: Thought content normal. Cognition and Memory: Cognition and memory normal. Judgment: Judgment normal. ASSESSMENT/PLAN: 1. Type 2 diabetes mellitus without complication, without long-term current use of insulin (HCC) - ICD9: 250.00, ICD10: E11.9 (primary diagnosis) - Improving control - Increase dulaglutide (Trulicity) - Counseled on healthy diet and regular exercise - Discussed need for and benefit of weight loss. BMI 41.62 kg/(m^2) - DULAGLUTIDE 1.5 MG/0.5 ML SUBCUTANEOUS PEN INJECTOR - HEMOGLOBIN A1C - LIPID PANEL, NONFASTING - ALBUMIN/CREATININE RATIO, URINE 2. Fatty liver - ICD9: 571.8, ICD10: K76.0 - DULAGLUTIDE 1.5 MG/0.5 ML SUBCUTANEOUS PEN INJECTOR - COMPREHENSIVE METABOLIC PANEL 3. Obesity, Class III, BMI >= 40 - ICD9: 278.01, ICD10: E66.01 Weight decreasing - Behavioral intervention, - Pharmacological intervention, - Increase trulicity, and - Add Bupropion - DULAGLUTIDE 1.5 MG/0.5 ML SUBCUTANEOUS PEN INJECTOR 4. Vapes nicotine containing substance - ICD9: 305.1, ICD10: Z72.0 - Cessation encouraged. - Physiologic and physical aspects of tobacco addiction as well as strategies for quitting were discussed. - Counseling was given focusing on the harmful effects of this addiction especially given the patient's medical condition(s) which will be worsened because of the chemicals in tobacco. - Prescription for bupropion (Wellbutrin) given - BUPROPION XL 150 MG TAB 5. Encounter for immunization - ICD9: V03.89, ICD10: Z23 - INFLUENZA VACCINE, AGE 6MO-64YR, TRIVALENT (AFLURIA, FLULAVAL, FLUVIRIN, FLUZONE) - PNEUMOCOCCAL VACCINE, 20 VALENT (PREVNAR 20) 6. Encounter for therapeutic drug monitoring - ICD9: V58.83, ICD10: Z51.81 - COMPLETE BLOOD COUNT AND DIFFERENTIAL - COMPREHENSIVE METABOLIC PANEL 7. Screening for lipid disorders - ICD9: V77.91, ICD10: Z13.220 - LIPID PANEL, NONFASTING Portions of this note have been entered by ancillary staff. I have reviewed and when necessary edited, so that they are an adequate record of my encounter with this patient Please note that parts of this document were created using voice recognition software and therefore may contain grammatical errors. Patient verbalizes understanding of instructions from today's visit and in agreement with treatmentplan. Questions answered. Agrees to call the office if questions, concerns of issues with acute symptoms not improving or if they worsen. See diagnoses and orders for additional plan(s). Allergies and medications were reviewed, list was updated, and refills given if needed. Past medical, surgical, social, and family history reviewed and updated as appropriate. Encouraged proper diet & exercise as well as compliance with taking medications. Age- appropriate health preventative measures were discussed. Return in about 6 weeks (around 04/30/2024) for recheck on new medication.. Sher Hollingsworth APRN-MERLIN documented in this encounterFair[facility]09-16-[facility]24 Telephone encounter Note * Telephone Encounter - Sher Hollingsworth APRN.CNP - 03/15/2024 3:50 PM EDT PDMP website checked and validated. All prescriptions have been APPROPRIATELY filled. No suspiciousactivity was identified. 03/15/2024 by Sher Hollingsworth APRN.CNP [facility]09-[facility] Miscellaneous Notes* Telephone Encounter - Sher Hollingsworth APRN.CNP - 03/15/2024 3:50 PM EDT PDMP website checked and validated. All prescriptions have been APPROPRIATELY filled. No suspiciousactivity was identified. 03/15/2024 by Sher Hollingsworth APRN.CNP * Telephone Encounter - Courtney Holcomb LPN - 03/15/2024 3:30 PM EDT Prescription Refill Information The patient has been identified by name and date of : Yes Caregiver verified no other encounters exist for this prescription request: Yes Caregiver confirmed with patient/requestor that no other refills are due, in the near future, with this provider at this time: Yes The last office visit in the department: 01/27/24 Does the patient have a future office visit with this provider/department: Yes Requested Prescriptions Pending Prescriptions Disp Refills amphetamine-dextroamphetamine XR (ADDERALL XR) 30 mg capsule 30 capsule 0 Sig: Take 1 capsule by mouth every morning for 30 days. Courtney Holcomb LPN March 15, 2024 3:30 PM documented in this encounterFairfield Medical Center09-16-2024 Telephone encounter Note * Telephone Encounter - Courtney Holcomb LPN - 03/15/2024 3:31 PM EDT Prescription Refill Information The patient has been identified by name and date of : Yes Caregiver verified no other encounters exist for this prescription request: Yes Caregiver confirmed with patient/requestor that no other refills are due, in the near future, with this provider at this time: Yes The last office visit in the department: 01/27/24 Does the patient have a future office visit with this provider/department: Yes Requested Prescriptions Pending Prescriptions Disp Refills methylphenidate (RITALIN) 20 mg tablet 30 tablet 0 Sig: Take 1 tablet by mouth as needed for up to 30 days. Take at approx. 3-4 pm. Courtney Holcomb LPN March 15, 2024 3:31 PM [facility] Miscellaneous Notes* Telephone Encounter - Courtney Holcomb LPN - 03/15/2024 3:31 PM EDT Prescription Refill Information The patient has been identified by name and date of : Yes Caregiver verified no other encounters exist for this prescription request: Yes Caregiver confirmed with patient/requestor that no other refills are due, in the near future, with this provider at this time: Yes The last office visit in the department: 01/27/24 Does the patient have a future office visit with this provider/department: Yes Requested Prescriptions Pending Prescriptions Disp Refills methylphenidate (RITALIN) 20 mg tablet 30 tablet 0 Sig: Take 1 tablet by mouth as needed for up to 30 days. Take at approx. 3-4 pm. Courtney Holcomb LPN March 15, 2024 3:31 PM documented in this encounterFairfield Medical Center09-16-2024 Telephone encounter Note * Telephone Encounter - Courtney Holcomb LPN - 03/15/2024 3:30 PM EDT Prescription Refill Information The patient has been identified by name and date of : Yes Caregiver verified no other encounters exist for this prescription request: Yes Caregiver confirmed with patient/requestor that no other refills are due, in the near future, with this provider at this time: Yes The last office visit in the department: 01/27/24 Does the patient have a future office visit with this provider/department: Yes Requested Prescriptions Pending Prescriptions Disp Refills amphetamine-dextroamphetamine XR (ADDERALL XR) 30 mg capsule 30 capsule 0 Sig: Take 1 capsule by mouth every morning for 30 days. Courtney Holcomb LPN March 15, 2024 3:30 PM [facility]09-[facility] Telephone encounter Note* Telephone Encounter - Zelalem Forde MA - 03/05/2024 11:40 AM EDT Prescription Refill Information The patient has been identified by name and date of : Yes Caregiver verified no other encounters exist for this prescription request: Yes Caregiver confirmed with patient/requestor that no other refills are due, in the near future, with this provider at this time: Yes The last office visit in the department: 01/27/2024 Does the patient have a future office visit with this provider/department: Yes Requested Prescriptions Pending Prescriptions Disp Refills SUMAtriptan (IMITREX) 100 mg tablet 9 tablet 5 Sig: Take 1 tablet (100 mg) by mouth as needed for migraine headache (see administration instructions). Take 1 by mouth at onset of migraine. May repeat after 2 hours as needed Zelalem Forde MA March 05, 2024 11:40 AM [facility]09-[facility] Miscellaneous Notes* Telephone Encounter - Zelalem Forde MA - 03/05/2024 11:40 AM EDT Prescription Refill Information The patient has been identified by name and date of : Yes Caregiver verified no other encounters exist for this prescription request: Yes Caregiver confirmed with patient/requestor that no other refills are due, in the near future, with this provider at this time: Yes The last office visit in the department: 01/27/2024 Does the patient have a future office visit with this provider/department: Yes Requested Prescriptions Pending Prescriptions Disp Refills SUMAtriptan (IMITREX) 100 mg tablet 9 tablet 5 Sig: Take 1 tablet (100 mg) by mouth as needed for migraine headache (see administration instructions). Take 1 by mouth at onset of migraine. May repeat after 2 hours as needed Zelalem Forde MA March 05, 2024 11:40 AM documented in this encounterFairfield Medical Center09-05-2024 NoteHNO ID: [id number] Author: PAT FERRER APRN.E[employer]OVE MECH[employer]IC Service: ? Author Type: Nurse Practitioner Type: Progress Notes Filed: 03/04/2024 12:54 Note Text: Katie Forde is a 23 year old female who presents for problem visit vaginal itching ongoing HPI: Patient states that she did not get any resolve from 1 dose of Diflucan and a 7-day round of Monistat. She is continue to have vaginal itching and irritation. Patient does state that her blood sugars are now within normal range with the Trulicity injections. 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 History Comments: Sexual Activity: Not Currently; Male Contraception: None PAST MEDICAL HISTORY No date: ADHD (attention deficit hyperactivity disorder) No date: Fatty liver No date: GERD (gastroesophageal reflux disease) No date: Marfan's syndrome 06/25/2008: VIRAL WARTS NOS Comment: resolved PAST SURGICAL HISTORY 06/10/2022: DDI VIBRATION CONTROLLED TRANSIENT ELASTOGRAPHY (VCTE) Comment: Fibrosis stage F3-F4 and steatosis grade of S3 05/02/2015: EYE SURGERY HX Comment: detached retina 08/19/2018: EYE SURGERY HX Comment: right sided secondary lens implant 07/05/2022: LIVER BIOPSY No date: PAST SURGICAL HISTORY OF Comment: sherwin eyes No date: PAST SURGICAL HISTORY OF Comment: right leg broken-surgery FAMILY HISTORY Problem Relation Age of Onset - other (Marfan's) Mother - None Father - other (Marfan's) Brother - other (mood issues) Brother - Osteoporosis Maternal Grandmother - other (Marfan's) Maternal Grandfather - None Paternal Grandmother - Heart Paternal Grandfather pace maker - No Ocular Disease Other Social History Tobacco Use - Smoking status: Former Current packs/day: 0.00 Types: Cigarettes Quit date: 2021 Years since quittin.6 - Smokeless tobacco: Never - Tobacco comments: Pt smoked 3 cigarettes daily x 2 months, quit 2021 Pt vapes Vaping Use - Vaping status: current everyday user - Substances: Nicotine, Flavoring - Devices: Pre-filled or refillable cartridge Substance Use Topics - Alcohol use: Not Currently Comment: occasional - Drug use: Not Currently Types: Marijuana Current Outpatient Medications Medication Sig - doxycycline (VIBRA-TABS) 100 mg tablet Take 1 tablet by mouth two times a day for 7 days. - miconazole (MONISTAT 7) 2 % vaginal cream Use 1 Applicator vaginally daily at bedtime. (Patient not taking: Reported on 03/02/2024) - methylphenidate (RITALIN) 20 mg tablet Take 1 tablet by mouth as needed for up to 30 days. Take at approx. 3-4 pm. - amphetamine-dextroamphetamine XR (ADDERALL XR) 30 mg capsule Take 1 capsule by mouth every morning for 30 days. Patient should start on February 14, 2024. - Blood-Glucose Meter 1 Device as directed. For once daily testing - blood sugar diagnostic (BLOOD GLUCOSE TEST) test strip Test blood sugar(s) one times daily. Dx: Type 2 DM - Controlled E11.9 Insulin: No - Lancets Test blood sugar(s) one times daily. Dx: Type 2 DM - Controlled E11.9 Insulin: No - dulaglutide (TRULICITY) 0.75 mg/0.5 mL pen injector Inject 0.75 mg subcutaneously one time a week. - Norethindrone, Contraceptive, (SELMA) 0.35 mg tablet Take 1 tablet by mouth once daily. - omeprazole (PRILOSEC) 20 mg capsule Take 1 capsule by mouth once daily. On empty stomach at least 30 minutes before eating. - SUMAtriptan (IMITREX) 100 mg tablet Take 1 tablet (100 mg) by mouth as needed for migraine headache (see administration instructions). Take 1 by mouth at onset of migraine. May repeat after 2 hours as needed - ondansetron orally disintegrating (ZOFRAN ODT) 4 mg disintegrating tablet Take 1 tablet by mouth every 8 hours as needed for nausea/vomiting. - PARoxetine (PAXIL) 20 mg tablet Take 1 tablet by mouth once daily. - CPAP/BIPAP/OTHER Type .CPAPSettings into a note to see current settings/supplies/DME information. No current facility-administered medications for this visit. Allergies As of Date: 03/04/2024 (No Known Allergies) Fully Assessed 03/03/2024 REVIEW OF SYSTEMS Expanded ROS: N/A Allergies and current medication updated:Yes EXAM: LMP 10/21/2023 GENERAL: pleasant, female in no apparent distress HEENT: Normocephalic, atraumatic, mucus membranes moist, and no lesions CHEST: Normal inspiratory effort NEURO: alert and oriented x3,exam grossly non-focal EXTREMITIES: normal ASSESSMENT/PLAN: 1. Vaginal yeast infection - ICD9: 112.1, ICD10: B37.31 - FLUCONAZOLE 150 MG TABLET x 3 doses Call if no improvement Pat Ferrer APRN.ELECTRIC [employer]OVE MECHANIC Medical Decision Making: Problems: Low: Acute, uncomplicated illness or injury Risk: Moderate: Drug management Medical Decision Making Level: 3 - [facility] of Present illness Narrative* Pat Ferrer APRN.CNP - 03/04/2024 12:37 PM EDT Katie Forde is a 23 year old female who presents for problem visit vaginal itching ongoing HPI: Patient states that she did not get any resolve from 1 dose of Diflucan and a 7-day round of Monistat. She is continue to have vaginal itching and irritation. Patient does state that her blood sugars are now within normal range with the Trulicity injections. 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 History Comments: Sexual Activity: Not Currently; Male Contraception: None PAST MEDICAL HISTORY No date: ADHD (attention deficit hyperactivity disorder) No date: Fatty liver No date: GERD (gastroesophageal reflux disease) No date: Marfan's syndrome 06/25/2008: VIRAL WARTS NOS Comment: resolved PAST SURGICAL HISTORY 06/10/2022: DDI VIBRATION CONTROLLED TRANSIENT ELASTOGRAPHY (VCTE) Comment: Fibrosis stage F3-F4 and steatosis grade of S3 05/02/2015: EYE SURGERY HX Comment: detached retina 08/19/2018: EYE SURGERY HX Comment: right sided secondary lens implant 07/05/2022: LIVER BIOPSY No date: PAST SURGICAL HISTORY OF Comment: sherwin eyes No date: PAST SURGICAL HISTORY OF Comment: right leg broken-surgery FAMILY HISTORY Problem Relation Age of Onset other (Marfan's) Mother None Father other (Marfan's) Brother other (mood issues) Brother Osteoporosis Maternal Grandmother other (Marfan's) Maternal Grandfather None Paternal Grandmother Heart Paternal Grandfather pace maker No Ocular Disease Other Social History Tobacco Use Smoking status: Former Current packs/day: 0.00 Types: Cigarettes Quit date: 2021 Years since quittin.6 Smokeless tobacco: Never Tobacco comments: Pt smoked 3 cigarettes daily x 2 months, quit 2021 Pt vapes Vaping Use Vaping status: current everyday user Substances: Nicotine, Flavoring Devices: Pre-filled or refillable cartridge Substance Use Topics Alcohol use: Not Currently Comment: occasional Drug use: Not Currently Types: Marijuana Current Outpatient Medications Medication Sig doxycycline (VIBRA-TABS) 100 mg tablet Take 1 tablet by mouth two times a day for 7 days. miconazole (MONISTAT 7) 2 % vaginal cream Use 1 Applicator vaginally daily at bedtime. (Patient nottaking: Reported on 03/02/2024) methylphenidate (RITALIN) 20 mg tablet Take 1 tablet by mouth as needed for up to 30 days. Take at approx. 3-4 pm. amphetamine-dextroamphetamine XR (ADDERALL XR) 30 mg capsule Take 1 capsule by mouth every morning for 30 days. Patient should start on February 14, 2024. Blood-Glucose Meter 1 Device as directed. For once daily testing blood sugar diagnostic (BLOOD GLUCOSE TEST) test strip Test blood sugar(s) one times daily. Dx: Type 2 DM - Controlled E11.9 Insulin: No Lancets Test blood sugar(s) one times daily. Dx: Type 2 DM - Controlled E11.9 Insulin: No dulaglutide (TRULICITY) 0.75 mg/0.5 mL pen injector Inject 0.75 mg subcutaneously one time a week. Norethindrone, Contraceptive, (SELMA) 0.35 mg tablet Take 1 tablet by mouth once daily. omeprazole (PRILOSEC) 20 mg capsule Take 1 capsule by mouth once daily. On empty stomach at least 30 minutes before eating. SUMAtriptan (IMITREX) 100 mg tablet Take 1 tablet (100 mg) by mouth as needed for migraine headache(see administration instructions). Take 1 by mouth at onset of migraine. May repeat after 2 hours as needed ondansetron orally disintegrating (ZOFRAN ODT) 4 mg disintegrating tablet Take 1 tablet by mouth every 8 hours as needed for nausea/vomiting. PARoxetine (PAXIL) 20 mg tablet Take 1 tablet by mouth once daily. CPAP/BIPAP/OTHER Type .CPAPSettings into a note to see current settings/supplies/DME information. No current facility-administered medications for this visit. Allergies As of Date: 03/04/2024 (No Known Allergies) Fully Assessed 03/03/2024 REVIEW OF SYSTEMS Expanded ROS: N/A Allergies and current medication updated:Yes EXAM: LMP 10/21/2023 GENERAL: pleasant, female in no apparent distress HEENT: Normocephalic, atraumatic, mucus membranes moist, and no lesions CHEST: Normal inspiratory effort NEURO: alert and oriented x3,exam grossly non-focal EXTREMITIES: normal ASSESSMENT/PLAN: 1. Vaginal yeast infection - ICD9: 112.1, ICD10: B37.31 - FLUCONAZOLE 150 MG TABLET x 3 doses Call if no improvement Pat Ferrer APRNMOHINI Medical Decision Making: Problems: Low: Acute, uncomplicated illness or injury Risk: Moderate: Drug management Medical Decision Making Level: 3 - Low documented [facility] NoteHNO ID: [id number] Author: REBECA RUSSELL APRN.[facility] Service: ? Author Type: Nurse Practitioner Type: Progress Notes Filed: 03/02/2024 13:36 Note Text: This note was created using [employer]. Subjective Katie Forde is a 23 year old female. 23 year old female with DM, migraine, ADHD, and anxiety presents for illness. Acute onset 8 days ago +sore throat + cough +post nasal drainage +sinus pressure +nausea Denies body aches or fatigue Denies fever or chills. Denies emesis Denies diarrhea Vapes She is accompanied by family members for similar. The history is provided by the patient. No sales process manager was used. Nasal Congestion This is a new problem. The current episode started 1 to 4 weeks ago. The problem has been gradually worsening since onset. There has been no fever. Her pain is at a severity of 7/10. The pain is moderate. Associated symptoms include congestion, coughing, ear pain, headaches, sinus pressure, sneezing and a sore throat. Pertinent negatives include no chills, diaphoresis, hoarse voice, neck pain, shortness of breath or swollen glands. Past treatments include nothing. The treatment provided no relief. PAST MEDICAL HISTORY No date: ADHD (attention deficit hyperactivity disorder) No date: Fatty liver No date: GERD (gastroesophageal reflux disease) No date: Marfan's syndrome 06/25/2008: VIRAL WARTS NOS Comment: resolved PAST SURGICAL HISTORY 06/10/2022: DDI VIBRATION CONTROLLED TRANSIENT ELASTOGRAPHY (VCTE) Comment: Fibrosis stage F3-F4 and steatosis grade of S3 05/02/2015: EYE SURGERY HX Comment: detached retina 08/19/2018: EYE SURGERY HX Comment: right sided secondary lens implant 07/05/2022: LIVER BIOPSY No date: PAST SURGICAL HISTORY OF Comment: sherwin eyes No date: PAST SURGICAL HISTORY OF Comment: right leg broken-surgery ALLERGIES Patient has no known allergies. MEDICATIONS methylphenidate (RITALIN) 20 mg tablet Take 1 tablet by mouth as needed for up to 30 days. Take at approx. 3-4 pm. amphetamine-dextroamphetamine XR (ADDERALL XR) 30 mg capsule Take 1 capsule by mouth every morning for 30 days. Patient should start on February 14, 2024. Blood-Glucose Meter 1 Device as directed. For once daily testing blood sugar diagnostic (BLOOD GLUCOSE TEST) test strip Test blood sugar(s) one times daily. Dx: Type 2 DM - Controlled E11.9 Insulin: No Lancets Test blood sugar(s) one times daily. Dx: Type 2 DM - Controlled E11.9 Insulin: No dulaglutide (TRULICITY) 0.75 mg/0.5 mL pen injector Inject 0.75 mg subcutaneously one time a week. Norethindrone, Contraceptive, (SELMA) 0.35 mg tablet Take 1 tablet by mouth once daily. omeprazole (PRILOSEC) 20 mg capsule Take 1 capsule by mouth once daily. On empty stomach at least 30 minutes before eating. SUMAtriptan (IMITREX) 100 mg tablet Take 1 tablet (100 mg) by mouth as needed for migraine headache (see administration instructions). Take 1 by mouth at onset of migraine. May repeat after 2 hours as needed ondansetron orally disintegrating (ZOFRAN ODT) 4 mg disintegrating tablet Take 1 tablet by mouth every 8 hours as needed for nausea/vomiting. PARoxetine (PAXIL) 20 mg tablet Take 1 tablet by mouth once daily. CPAP/BIPAP/OTHER Type .CPAPSettings into a note to see current settings/supplies/DME information. doxycycline (VIBRA-TABS) 100 mg tablet Take 1 tablet by mouth two times a day for 7 days. miconazole (MONISTAT 7) 2 % vaginal cream Use 1 Applicator vaginally daily at bedtime. (Patient not taking: Reported on 03/02/2024) FAMILY HISTORY Problem Relation Age of Onset other (Marfan's) Mother None Father other (Marfan's) Brother other (mood issues) Brother Osteoporosis Maternal Grandmother other (Marfan's) Maternal Grandfather None Paternal Grandmother Heart Paternal Grandfather pace maker No Ocular Disease Other Social History Tobacco Use Smoking status: Former Current packs/day: 0.00 Types: Cigarettes Quit date: 2021 Years since quittin.6 Smokeless tobacco: Never Tobacco comments: Pt smoked 3 cigarettes daily x 2 months, quit 2021 Pt vapes Vaping Use Vaping status: current everyday user Substances: Nicotine, Flavoring Devices: Pre-filled or refillable cartridge Substance Use Topics Alcohol use: Not Currently Comment: occasional Drug use: Not Currently Types: Marijuana Review of Systems Constitutional: Positive for fatigue. Negative for chills and diaphoresis. HENT: Positive for congestion, ear pain, postnasal drip, rhinorrhea, sinus pressure, sinus pain, sneezing and sore throat. Negative for hoarse voice. Eyes: Negative for photophobia, pain, discharge, redness, itching and visual disturbance. Respiratory: Positive for cough. Negative for shortness of breath. Cardiovascular: Negative for chest pain and leg swelling. Gastrointestinal: Negative for abdominal pain, diarrhea, nausea and vomiting. Musculoskeletal: Nega (more content not included)...[facility] 03-02-2024 History of Present illness Narrative* Rebeca Russell APRN.[employer] - 03/02/2024 12:36 PM EDT This note was created using GMEX. Subjective Katie Forde is a 23 year old female. 23 year old female with DM, migraine, ADHD, and anxiety presents for illness. Acute onset 8 days ago +sore throat + cough +post nasal drainage +sinus pressure +nausea Denies body aches or fatigue Denies fever or chills. Denies emesis Denies diarrhea Vapes She is accompanied by family members for similar. The history is provided by the patient. No sales process manager was used. Nasal Congestion This is a new problem. The current episode started 1 to 4 weeks ago. The problem has been graduallyworsening since onset. There has been no fever. Her pain is at a severity of 7/10. The pain is moderate. Associated symptoms include congestion, coughing, ear pain, headaches, sinus pressure, sneezing and a sore throat. Pertinent negatives include no chills, diaphoresis, hoarse voice, neck pain, shortness of breath or swollen glands. Past treatments include nothing. The treatment provided no relief. PAST MEDICAL HISTORY No date: ADHD (attention deficit hyperactivity disorder) No date: Fatty liver No date: GERD (gastroesophageal reflux disease) No date: Marfan's syndrome 06/25/2008: VIRAL WARTS NOS Comment: resolved PAST SURGICAL HISTORY 06/10/2022: DDI VIBRATION CONTROLLED TRANSIENT ELASTOGRAPHY (VCTE) Comment: Fibrosis stage F3-F4 and steatosis grade of S3 05/02/2015: EYE SURGERY HX Comment: detached retina 08/19/2018: EYE SURGERY HX Comment: right sided secondary lens implant 07/05/2022: LIVER BIOPSY No date: PAST SURGICAL HISTORY OF Comment: sherwin eyes No date: PAST SURGICAL HISTORY OF Comment: right leg broken-surgery ALLERGIES Patient has no known allergies. MEDICATIONS methylphenidate (RITALIN) 20 mg tablet Take 1 tablet by mouth as needed for up to 30 days. Take at approx. 3-4 pm. amphetamine-dextroamphetamine XR (ADDERALL XR) 30 mg capsule Take 1 capsule by mouth every morning for 30 days. Patient should start on February 14, 2024. Blood-Glucose Meter 1 Device as directed. For once daily testing blood sugar diagnostic (BLOOD GLUCOSE TEST) test strip Test blood sugar(s) one times daily. Dx: Type 2 DM - Controlled E11.9 Insulin: No Lancets Test blood sugar(s) one times daily. Dx: Type 2 DM - Controlled E11.9 Insulin: No dulaglutide (TRULICITY) 0.75 mg/0.5 mL pen injector Inject 0.75 mg subcutaneously one time a week. Norethindrone, Contraceptive, (SELMA) 0.35 mg tablet Take 1 tablet by mouth once daily. omeprazole (PRILOSEC) 20 mg capsule Take 1 capsule by mouth once daily. On empty stomach at least 30 minutes before eating. SUMAtriptan (IMITREX) 100 mg tablet Take 1 tablet (100 mg) by mouth as needed for migraine headache(see administration instructions). Take 1 by mouth at onset of migraine. May repeat after 2 hours as needed ondansetron orally disintegrating (ZOFRAN ODT) 4 mg disintegrating tablet Take 1 tablet by mouth every 8 hours as needed for nausea/vomiting. PARoxetine (PAXIL) 20 mg tablet Take 1 tablet by mouth once daily. CPAP/BIPAP/OTHER Type .CPAPSettings into a note to see current settings/supplies/DME information. doxycycline (VIBRA-TABS) 100 mg tablet Take 1 tablet by mouth two times a day for 7 days. miconazole (MONISTAT 7) 2 % vaginal cream Use 1 Applicator vaginally daily at bedtime. (Patient nottaking: Reported on 03/02/2024) FAMILY HISTORY Problem Relation Age of Onset other (Marfan's) Mother None Father other (Marfan's) Brother other (mood issues) Brother Osteoporosis Maternal Grandmother other (Marfan's) Maternal Grandfather None Paternal Grandmother Heart Paternal Grandfather pace maker No Ocular Disease Other Social History Tobacco Use Smoking status: Former Current packs/day: 0.00 Types: Cigarettes Quit date: 2021 Years since quittin.6 Smokeless tobacco: Never Tobacco comments: Pt smoked 3 cigarettes daily x 2 months, quit 2021 Pt vapes Vaping Use Vaping status: current everyday user Substances: Nicotine, Flavoring Devices: Pre-filled or refillable cartridge Substance Use Topics Alcohol use: Not Currently Comment: occasional Drug use: Not Currently Types: Marijuana Review of Systems Constitutional: Positive for fatigue. Negative for chills and diaphoresis. HENT: Positive for congestion, ear pain, postnasal drip, rhinorrhea, sinus pressure, sinus pain, sneezing and sore throat. Negative for hoarse voice. Eyes: Negative for photophobia, pain, discharge, redness, itching and visual disturbance. Respiratory: Positive for cough. Negative for shortness of breath. Cardiovascular: Negative for chest pain and leg swelling. Gastrointestinal: Negative for abdominal pain, diarrhea, nausea and vomiting. Musculoskeletal: Negative for arthralgias, back pain, gait problem and neck pain. Skin: Negative for color change, pallor and wound. Allergic/Immunologic: Negative for environmental allergies and food allergies. Neurological: Positive for headaches. Hematological: Negative for adenopathy. Does not bruise/bleed easily. Psychiatric/Behavioral: Negative for agitation and behavioral problems. Objective BP 124/80 Pulse 106 Temp 36.8 C (98.3 F) Resp 16 Wt (!) 141.9 kg (312 lb 13.3 oz) LMP 10/21/2023 (Exact Date) SpO2 98% BMI 42.43 kg/m Physical Exam Vitals and nursing note reviewed. Constitutional: General: She is not in acute distress. Appearance: Normal appearance. She is normal weight. She is not ill-appearing, toxic-appearing or diaphoretic. HENT: Head: Normocephalic and atraumatic. Comments: +frontal sinus pressure +maxillary sinus pressure Right Ear: Ear canal and external ear normal. Left Ear: Ear canal and external ear normal. Nose: Congestion present. No rhinorrhea. Mouth/Throat: Mouth: Mucous membranes are moist. Pharynx: Posterior oropharyngeal erythema present. No oropharyngeal exudate. Comments: +post nasal drainage Eyes: General: Right eye: No discharge. Left [...] Left lower leg: No edema. Lymphadenopathy: Cervical: Cervical adenopathy present. Skin: General: Skin is warm and dry. [...] Judgment normal. Assessment and Plan ASSESSMENT/PLAN: 1. Rhinosinusitis - ICD9: 473.9, ICD10: J32.9 X 8 days Worsening - Will begin treatment with as per [...] days if symptoms persist or worsen. Rebeca Russell APRN.CNP [facility] Telephone encounter Note * Telephone Encounter - Cate Mcrae RN - 02/18/2024 2:18 PM EDT Patient informed and scheduled [facility] Miscellaneous Notes* Telephone Encounter - Cate Mcrae RN - 02/18/2024 2:18 PM EDT Patient informed and scheduled * Telephone Encounter - Raquel Marcano APRN.CNP - 02/18/2024 2:03 PM EDT Recommend follow up appointment with for management of recurrent yeast as this will likely be anissue with new DM diagnosis.Rx sent for Monistat to pharmacy - her insurance may cover it. Raquel Marcano APRN.[facility] * Telephone Encounter - Cate Mcrae RN - 02/18/2024 1:41 PM EDT Last seen for annual in 2020? Has been seen for problem visits since then. Looks like recently diagnosed with Type 2 diabetes -see 01/26 Sher Cunha visit documented in this encounterFair[facility]08-21-2024 Telephone encounter Note * Telephone Encounter - Raquel Marcano APRN.CNP - 02/18/2024 2:03 PM EDT Recommend follow up appointment with for management of recurrent yeast as this will likely be anissue with new DM diagnosis.Rx sent for Monistat to pharmacy - her insurance may cover it. Raquel Marcano APRN.[facility]08-[facility] Telephone encounter Note* Telephone Encounter - Cate Mcrae RN - 02/18/2024 1:41 PM EDT Last seen for annual in 2020? Has been seen for problem visits since then. Looks like recently diagnosed with Type 2 diabetes -see 01/26 Sher Cunha visit [facility] Tele[facility] encounter Note* Telephone Encounter - Janny Montoya LPN - 02/11/2024 7:55 AM EDT The patient has been identified by name and date of : Yes Caregiver verified no other encounters exist for this prescription request: Yes Caregiver confirmed with patient/requestor that no other refills are due, in the near future, with this provider at this time: Yes The last office visit in the department: 01/27/24 Does the patient have a future office visit with this provider/department: Yes 03/19/24 Requested Prescriptions Pending Prescriptions Disp Refills methylphenidate (RITALIN) 20 mg tablet 30 tablet 0 Sig: Take 1 tablet by mouth as needed for up to 30 days. Take at approx. 3-4 pm. Janny Montoya LPN February 11, 2024 7:56 AM [facility]08-[facility] Miscellaneous Notes* Telephone Encounter - Janny Montoya LPN - 02/11/2024 7:55 AM EDT The patient has been identified by name and date of : Yes Caregiver verified no other encounters exist for this prescription request: Yes Caregiver confirmed with patient/requestor that no other refills are due, in the near future, with this provider at this time: Yes The last office visit in the department: 01/27/24 Does the patient have a future office visit with this provider/department: Yes 03/19/24 Requested Prescriptions Pending Prescriptions Disp Refills methylphenidate (RITALIN) 20 mg tablet 30 tablet 0 Sig: Take 1 tablet by mouth as needed for up to 30 days. Take at approx. 3-4 pm. Janny Montoya LPN February 11, 2024 7:56 AM documented in this encounterFairfield [facility] Center08-14-2024 Telephone encounter Note * Telephone Encounter - Janny Montoya LPN - 02/11/2024 7:52 AM EDT Our records show a valid rx at the pharmacy. Janny Montoya LPN [facility]08-[facility] Miscellaneous Notes* Telephone Encounter - Janny Montoya LPN - 02/11/2024 7:52 AM EDT Our records show a valid rx at the pharmacy. Janny Montoya LPN documented in this encounterFairfield [facility] Center08-13-2024 NoteHNO ID: [id number] Author: PAT FERRER APRN.ELECTRIC STOVE MECHANIC Service: ? Author Type: Nurse Practitioner Type: Progress Notes Filed: 02/10/2024 15:09 Note Text: 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 Katie Forde is a 23 year old female who presents for problem visit for a Yeast Infection. HPI: Patient is here for a yeast infection, she is having discharge. 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 History Comments: Sexual Activity: Not Currently; Male Contraception: None PAST MEDICAL HISTORY No date: ADHD (attention deficit hyperactivity disorder) No date: Fatty liver No date: GERD (gastroesophageal reflux disease) No date: Marfan's syndrome 06/25/2008: VIRAL WARTS NOS Comment: resolved PAST SURGICAL HISTORY 06/10/2022: DDI VIBRATION CONTROLLED TRANSIENT ELASTOGRAPHY (VCTE) Comment: Fibrosis stage F3-F4 and steatosis grade of S3 05/02/2015: EYE SURGERY HX Comment: detached retina 08/19/2018: EYE SURGERY HX Comment: right sided secondary lens implant 07/05/2022: LIVER BIOPSY No date: PAST SURGICAL HISTORY OF Comment: sherwin eyes No date: PAST SURGICAL HISTORY OF Comment: right leg broken-surgery FAMILY HISTORY Problem Relation Age of Onset other (Marfan's) Mother None Father other (Marfan's) Brother other (mood issues) Brother Osteoporosis Maternal Grandmother other (Marfan's) Maternal Grandfather None Paternal Grandmother Heart Paternal Grandfather pace maker No Ocular Disease Other Social History Tobacco Use Smoking status: Former Types: Cigarettes Quit date: 2021 Years since quittin.6 Smokeless tobacco: Never Tobacco comments: Pt smoked 3 cigarettes daily x 2 months, quit 2021 Pt vapes Vaping Use Vaping Use: current everyday user Substances: Nicotine, Flavoring Devices: Pre-filled or refillable cartridge Substance Use Topics Alcohol use: Not Currently Comment: occasional Drug use: Not Currently Types: Marijuana Current Outpatient Medications Medication Sig [START ON 02/14/2024] amphetamine-dextroamphetamine XR (ADDERALL XR) 30 mg capsule Take 1 capsule by mouth every morning for 30 days. Patient should start on February 14, 2024. Blood-Glucose Meter 1 Device as directed. For once daily testing blood sugar diagnostic (BLOOD GLUCOSE TEST) test strip Test blood sugar(s) one times daily. Dx: Type 2 DM - Controlled E11.9 Insulin: No Lancets Test blood sugar(s) one times daily. Dx: Type 2 DM - Controlled E11.9 Insulin: No dulaglutide (TRULICITY) 0.75 mg/0.5 mL pen injector Inject 0.75 mg subcutaneously one time a week. Norethindrone, Contraceptive, (SELMA) 0.35 mg tablet Take 1 tablet by mouth once daily. methylphenidate (RITALIN) 20 mg tablet Take 1 tablet by mouth as needed for up to 30 days. Take at approx. 3-4 pm. Do not start before January 12, 2024. omeprazole (PRILOSEC) 20 mg capsule Take 1 capsule by mouth once daily. On empty stomach at least 30 minutes before eating. SUMAtriptan (IMITREX) 100 mg tablet Take 1 tablet (100 mg) by mouth as needed for migraine headache (see administration instructions). Take 1 by mouth at onset of migraine. May repeat after 2 hours as needed ondansetron orally disintegrating (ZOFRAN ODT) 4 mg disintegrating tablet Take 1 tablet by mouth every 8 hours as needed for nausea/vomiting. PARoxetine (PAXIL) 20 mg tablet Take 1 tablet by mouth once daily. CPAP/BIPAP/OTHER Type .CPAPSettings into a note to see current settings/supplies/DME information. No current facility-administered medications for this visit. Allergies As of Date: 02/10/2024 (No Known Allergies) Fully Assessed 02/10/2024 REVIEW OF SYSTEMS Expanded ROS: N/A Allergies and current medication updated:Yes EXAM: BP 120/80 Wt 316 lb (143.3kg) LMP 10/21/2023 GENERAL: pleasant, female in no apparent distress HEENT: Normocephalic, atraumatic, mucus membranes moist, and no lesions CHEST: Normal inspiratory effort PELVIC: external genitalia normal, normal Bartholin's glands, urethra, So-Hi's glands, no vulvar lesions, no cervical lesions, good vaginal support, physiologic discharge present, normal appearing perineal body and perianal region BIMANUAL: deferred NEURO: alert and oriented x3,exam grossly non-focal EXTREMITIES: normal ASSESSMENT/PLAN: 1. Vaginal discharge - ICD9: 623.5, ICD10: N89.8 Will notify patient of test results. - BACTERIAL VAGINOSIS NAAT - YEIMY/TRICHOMONAS NAAT Pat Ferrer APRN.ELECTRIC STOVE MECHANIC Medical Decision Making: Problems: Low: Acute, uncomplicated illness or injury Data: Unique test(s) ordered: 2 Risk: Low: Low risk from testing/treatment Medical Decision Making Level: 3 - [place] [id number] History of Present illness Narrative* Agata Pat, HARLAN.ELECTRIC STOVE MECHANIC - 02/10/2024 2:49 PM EDT 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 Katie Forde is a 23 year old female who presents for problem visit for a Yeast Infection. HPI: Patient is here for a yeast infection, she is having discharge. 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 History Comments: Sexual Activity: Not Currently; Male Contraception: None PAST MEDICAL HISTORY No date: ADHD (attention deficit hyperactivity disorder) No date: Fatty liver No date: GERD (gastroesophageal reflux disease) No date: Marfan's syndrome 06/25/2008: VIRAL WARTS NOS Comment: resolved PAST SURGICAL HISTORY 06/10/2022: DDI VIBRATION CONTROLLED TRANSIENT ELASTOGRAPHY (VCTE) Comment: Fibrosis stage F3-F4 and steatosis grade of S3 05/02/2015: EYE SURGERY HX Comment: detached retina 08/19/2018: EYE SURGERY HX Comment: right sided secondary lens implant 07/05/2022: LIVER BIOPSY No date: PAST SURGICAL HISTORY OF Comment: sherwin eyes No date: PAST SURGICAL HISTORY OF Comment: right leg broken-surgery FAMILY HISTORY Problem Relation Age of Onset other (Marfan's) Mother None Father other (Marfan's) Brother other (mood issues) Brother Osteoporosis Maternal Grandmother other (Marfan's) Maternal Grandfather None Paternal Grandmother Heart Paternal Grandfather pace maker No Ocular Disease Other Social History Tobacco Use Smoking status: Former Types: Cigarettes Quit date: 2021 Years since quittin.6 Smokeless tobacco: Never Tobacco comments: Pt smoked 3 cigarettes daily x 2 months, quit 2021 Pt vapes Vaping Use Vaping Use: current everyday user Substances: Nicotine, Flavoring Devices: Pre-filled or refillable cartridge Substance Use Topics Alcohol use: Not Currently Comment: occasional Drug use: Not Currently Types: Marijuana Current Outpatient Medications Medication Sig [START ON 02/14/2024] amphetamine-dextroamphetamine XR (ADDERALL XR) 30 mg capsule Take 1 capsule bymouth every morning for 30 days. Patient should start on February 14, 2024. Blood-Glucose Meter 1 Device as directed. For once daily testing blood sugar diagnostic (BLOOD GLUCOSE TEST) test strip Test blood sugar(s) one times daily. Dx: Type 2 DM - Controlled E11.9 Insulin: No Lancets Test blood sugar(s) one times daily. Dx: Type 2 DM - Controlled E11.9 Insulin: No dulaglutide (TRULICITY) 0.75 mg/0.5 mL pen injector Inject 0.75 mg subcutaneously one time a week. Norethindrone, Contraceptive, (SELMA) 0.35 mg tablet Take 1 tablet by mouth once daily. methylphenidate (RITALIN) 20 mg tablet Take 1 tablet by mouth as needed for up to 30 days. Take at approx. 3-4 pm. Do not start before January 12, 2024. omeprazole (PRILOSEC) 20 mg capsule Take 1 capsule by mouth once daily. On empty stomach at least 30 minutes before eating. SUMAtriptan (IMITREX) 100 mg tablet Take 1 tablet (100 mg) by mouth as needed for migraine headache(see administration instructions). Take 1 by mouth at onset of migraine. May repeat after 2 hours as needed ondansetron orally disintegrating (ZOFRAN ODT) 4 mg disintegrating tablet Take 1 tablet by mouth every 8 hours as needed for nausea/vomiting. PARoxetine (PAXIL) 20 mg tablet Take 1 tablet by mouth once daily. CPAP/BIPAP/OTHER Type .CPAPSettings into a note to see current settings/supplies/DME information. No current facility-administered medications for this visit. Allergies As of Date: 02/10/2024 (No Known Allergies) Fully Assessed 02/10/2024 REVIEW OF SYSTEMS Expanded ROS: N/A Allergies and current medication updated:Yes EXAM: BP 120/80 Wt 316 lb (143.3kg) LMP 10/21/2023 GENERAL: pleasant, female in no apparent distress HEENT: Normocephalic, atraumatic, mucus membranes moist, and no lesions CHEST: Normal inspiratory effort PELVIC: external genitalia normal, normal Bartholin's glands, urethra, So-Hi's glands, no vulvar lesions, no cervical lesions, good vaginal support, physiologic discharge present, normal appearing perineal body and perianal region BIMANUAL: deferred NEURO: alert and oriented x3,exam grossly non-focal EXTREMITIES: normal ASSESSMENT/PLAN: 1. Vaginal discharge - ICD9: 623.5, ICD10: N89.8 Will notify patient of test results. - BACTERIAL VAGINOSIS NAAT - YEIMY/TRICHOMONAS NAAT Pat Ferrer APRN.CNP Medical Decision Making: Problems: Low: Acute, uncomplicated illness or injury Data: Unique test(s) ordered: 2 Risk: Low: Low risk from testing/treatment Medical Decision Making Level: 3 - Low [facility] Telephone encounter Note * Telephone Encounter - Courtney Holcomb LPN - 02/09/2024 2:57 PM EDT Prescription Refill Information The patient has been identified by name and date of : Yes Caregiver verified no other encounters exist for this prescription request: Yes Caregiver confirmed with patient/requestor that no other refills are due, in the near future, with this provider at this time: Yes The last office visit in the department: 01/27/24 Does the patient have a future office visit with this provider/department: Yes Requested Prescriptions Pending Prescriptions Disp Refills amphetamine-dextroamphetamine XR (ADDERALL XR) 30 mg capsule [Pharmacy Med Name: DEXTROAMP-AMPHET ER 30 MG CAP] 30 capsule Sig: Take 1 capsule by mouth every morning. Courtney Holcomb LPN February 09, 2024 2:58 PM [facility]08-12-[facility] Miscellaneous Notes* Telephone Encounter - Courtney Holcomb LPN - 02/09/2024 2:57 PM EDT Prescription Refill Information The patient has been identified by name and date of : Yes Caregiver verified no other encounters exist for this prescription request: Yes Caregiver confirmed with patient/requestor that no other refills are due, in the near future, with this provider at this time: Yes The last office visit in the department: 01/27/24 Does the patient have a future office visit with this provider/department: Yes Requested Prescriptions Pending Prescriptions Disp Refills amphetamine-dextroamphetamine XR (ADDERALL XR) 30 mg capsule [Pharmacy Med Name: DEXTROAMP-AMPHET ER 30 MG CAP] 30 capsule Sig: Take 1 capsule by mouth every morning. Courtney Holcomb LPN February 09, 2024 2:58 PM documented in this encounterFair[facility]08-[facility]-2024 NoteHNO ID: [id number] Author: GERARDO CROWE MD Service: ? Author Type: Physician Type: Progress Notes Filed: 03/03/2024 15:20 Note Text: Gerardo Crowe MD Department of Orthopaedics Orthopaedics [address] [facility] [address] Dept: [phone] Dept February 02, 2024 CHIEF COMPLAINT: New and Pain of the Right Hand HPI Patient here today for right hand pain. States that she punched a wooden headboard a while back and the knuckle became swollen. She was not treated at the time of the injury. X-ray completed on 12/17/2023. She is right hand dominant. Does not work outside the home. ASSESSMENT: M79.641 Right hand pain PLAN: her middle MCP is still painful, likely from the contusion from impact. I suspect that will get better with time and modalities. I recommended Voltaren for the area. FOLLOW UP INSTRUCTIONS: As needed Ms. Katie Forde was advised as to contrast therapies and/or to take analgesics/anti-inflammatories as needed and all contraindications were reviewed. OBJECTIVE: Ms. Katie Forde is a pleasant 23 year old in no apparent distress. Gen:LMP 10/21/2023 nl development, obese, no deformities ENT: Normocephalic, normal hearing, moist mucosa CV: Pulses:Radial= 2+ and symmetric, capillary refill < 2 secs, no peripheral edema/varicosities Skin: no rash, bruising or lesions. Good turgor. Psych: cooperative and appropriate, alert and oriented x 3, good mood and affect. Musculoskeletal: Mild swelling of the joint, more than the others. TTP over the MCP joint. IMAGING: IMPRESSION: NORMAL APPEARANCE OF THE RIGHT HAND Fisher Purse Seine: SILVIANO Transcribe Date/Time: Dec 17 2023 10:37A Dictated by : LOIDA RECIO MD This examination was interpreted and the report reviewed and electronically signed by: LOIDA RECIO MD on Dec 17 2023 10:39AM EST Results-Findings * * *Final Report* * * DATE OF EXAM: Dec 17 2023 9:52AM [id number] - XR HAND 3V PA/LAT/OBL RT / PROCEDURE REASON: Right hand pain * * * * Physician Interpretation * * * * Examination: XR HAND 3V PA/LAT/OBL RT History: Right hand pain Punched a headboard 07/25/2023. Ongoing pain. Third MCP joint swelling at the dusty e of incident. Technique: XR HAND 3V PA/LAT/OBL RT Comparison: None RESULT: No evidence of fracture or bony abnormality. Normal mineralization and alignment. Joint spaces are maintained. Supporting Subjective Information Below: Past Medical History: PAST MEDICAL HISTORY No date: ADHD (attention deficit hyperactivity disorder) No date: Fatty liver No date: GERD (gastroesophageal reflux disease) No date: Marfan's syndrome 06/25/2008: VIRAL WARTS NOS Comment: resolved Past Surgical History: PAST SURGICAL HISTORY 06/10/2022: DDI VIBRATION CONTROLLED TRANSIENT ELASTOGRAPHY (VCTE) Comment: Fibrosis stage F3-F4 and steatosis grade of S3 05/02/2015: EYE SURGERY HX Comment: detached retina 08/19/2018: EYE SURGERY HX Comment: right sided secondary lens implant 07/05/2022: LIVER BIOPSY No date: PAST SURGICAL HISTORY OF Comment: sherwin eyes No date: PAST SURGICAL HISTORY OF Comment: right leg broken-surgery Family History: FAMILY HISTORY Problem Relation Age of Onset other (Marfan's) Mother None Father other (Marfan's) Brother other (mood issues) Brother Osteoporosis Maternal Grandmother other (Marfan's) Maternal Grandfather None Paternal Grandmother Heart Paternal Grandfather pace maker No Ocular Disease Other Social History: Social History Tobacco Use Smoking status: Former Types: Cigarettes Quit date: 2021 Years since quittin.5 Smokeless tobacco: Never Tobacco comments: Pt smoked 3 cigarettes daily x 2 months, quit 2021 Pt vapes Vaping Use Vaping Use: current everyday user Substances: Nicotine, Flavoring Devices: Pre-filled or refillable cartridge Substance Use Topics Alcohol use: Not Currently Comment: occasional Drug use: Not Currently Types: Marijuana Medications: Current Outpatient Medications Medication Sig dulaglutide (TRULICITY) 0.75 mg/0.5 mL pen injector Inject 0.75 mg subcutaneously one time a week. Norethindrone, Contraceptive, (SELMA) 0.35 mg tablet Take 1 tablet by mouth once daily. amphetamine-dextroamphetamine XR (ADDERALL XR) 30 mg capsule Take 1 capsule by mouth once daily for 30 days. Do not start before January 12, 2024. methylphenidate (RITALIN) 20 mg tablet Take 1 tablet by mouth as needed for up to 30 days. Take at approx. 3-4 pm. Do not start before January 12, 2024. omeprazole (PRILOSEC) 20 mg capsule Take 1 capsule by mouth once daily. On empty stomach at least 30 minutes before eating. SUMAtriptan (IMITREX) 100 mg tablet Take 1 tablet (100 mg) by mouth as needed for migraine headache (see administration instructions). Take 1 by mouth at onset of migraine. May repeat after 2 hours as needed PARoxetine (PAXIL) 20 mg tablet Take 1 (more content not included)...[facility]08-05-2024 History of Present illness Narrative* Gerardo Crowe MD - 02/02/2024 2:44 PM EDT Gerardo Crowe MD Department of Orthopaedics Orthopaedics [facility] [address] [facility] [address] Dept: [phone] Dept February 02, 2024 CHIEF COMPLAINT: New and Pain of the Right Hand HPI Patient here today for right hand pain. States that she punched a wooden headboard a while backand the knuckle became swollen. She was not treated at the time of the injury. X-ray completed on 12/17/2023. She is right hand dominant. Does not work outside the home. ASSESSMENT: M79.641 Right hand pain PLAN: her middle MCP is still painful, likely from the contusion from impact. I suspect that will get better with time and modalities. I recommended Keron for the area. FOLLOW UP INSTRUCTIONS: As needed Ms. Katie Forde was advised as to contrast therapies and/or to take analgesics/anti-inflammatories as needed and all contraindications were reviewed. OBJECTIVE: Ms. Katie Forde is a pleasant 23 year old in no apparent distress. Gen:LMP 10/21/2023 nl development, obese, no deformities ENT: Normocephalic, normal hearing, moist mucosa CV: Pulses:Radial= 2+ and symmetric, capillary refill < 2 secs, no peripheral edema/varicosities Skin: no rash, bruising or lesions. Good turgor. Psych: cooperative and appropriate, alert and oriented x 3, good mood and affect. Musculoskeletal: Mild swelling of the joint, more than the others. TTP over the MCP joint. IMAGING: IMPRESSION: NORMAL APPEARANCE OF THE RIGHT HAND Fisher Purse Seine: SILVIANO Transcribe Date/Time: Dec 17 2023 10:37A Dictated by : LOIDA RECIO MD This examination was interpreted and the report reviewed and electronically signed by: LOIDA RECIO MD on Dec 17 2023 10:39AM EST Results-Findings * * *Final Report* * * DATE OF EXAM: Dec 17 2023 9:52AM [id number] - XR HAND 3V PA/LAT/OBL RT / PROCEDURE REASON: Right hand pain * * * * Physician Interpretation * * * * Examination: XR HAND 3V PA/LAT/OBL RT History: Right hand pain Punched a headboard 07/25/2023. Ongoing pain. Third MCP joint swelling at the dusty e of incident. Technique: XR HAND 3V PA/LAT/OBL RT Comparison: None RESULT: No evidence of fracture or bony abnormality. Normal mineralization and alignment. Joint spaces are maintained. Supporting Subjective Information Below: Past Medical History: PAST MEDICAL HISTORY No date: ADHD (attention deficit hyperactivity disorder) No date: Fatty liver No date: GERD (gastroesophageal reflux disease) No date: Marfan's syndrome 06/25/2008: VIRAL WARTS NOS Comment: resolved Past Surgical History: PAST SURGICAL HISTORY 06/10/2022: DDI VIBRATION CONTROLLED TRANSIENT ELASTOGRAPHY (VCTE) Comment: Fibrosis stage F3-F4 and steatosis grade of S3 05/02/2015: EYE SURGERY HX Comment: detached retina 08/19/2018: EYE SURGERY HX Comment: right sided secondary lens implant 07/05/2022: LIVER BIOPSY No date: PAST SURGICAL HISTORY OF Comment: sherwin eyes No date: PAST SURGICAL HISTORY OF Comment: right leg broken-surgery Family History: FAMILY HISTORY Problem Relation Age of Onset other (Marfan's) Mother None Father other (Marfan's) Brother other (mood issues) Brother Osteoporosis Maternal Grandmother other (Marfan's) Maternal Grandfather None Paternal Grandmother Heart Paternal Grandfather pace maker No Ocular Disease Other Social History: Social History Tobacco Use Smoking status: Former Types: Cigarettes Quit date: 2021 Years since quittin.5 Smokeless tobacco: Never Tobacco comments: Pt smoked 3 cigarettes daily x 2 months, quit 2021 Pt vapes Vaping Use Vaping Use: current everyday user Substances: Nicotine, Flavoring Devices: Pre-filled or refillable cartridge Substance Use Topics Alcohol use: Not Currently Comment: occasional Drug use: Not Currently Types: Marijuana Medications: Current Outpatient Medications Medication Sig dulaglutide (TRULICITY) 0.75 mg/0.5 mL pen injector Inject 0.75 mg subcutaneously one time a week. Norethindrone, Contraceptive, (SELMA) 0.35 mg tablet Take 1 tablet by mouth once daily. amphetamine-dextroamphetamine XR (ADDERALL XR) 30 mg capsule Take 1 capsule by mouth once daily for30 days. Do not start before January 12, 2024. methylphenidate (RITALIN) 20 mg tablet Take 1 tablet by mouth as needed for up to 30 days. Take at approx. 3-4 pm. Do not start before January 12, 2024. omeprazole (PRILOSEC) 20 mg capsule Take 1 capsule by mouth once daily. On empty stomach at least 30 minutes before eating. SUMAtriptan (IMITREX) 100 mg tablet Take 1 tablet (100 mg) by mouth as needed for migraine headache(see administration instructions). Take 1 by mouth at onset of migraine. May repeat after 2 hours as needed PARoxetine (PAXIL) 20 mg tablet Take 1 tablet by mouth once daily. Blood-Glucose Meter 1 Device as directed. For once daily testing blood sugar diagnostic (BLOOD GLUCOSE TEST) test strip Test blood sugar(s) one times daily. Dx: Type 2 DM - Controlled E11.9 Insulin: No Lancets Test blood sugar(s) one times daily. Dx: Type 2 DM - Controlled E11.9 Insulin: No ondansetron orally disintegrating (ZOFRAN ODT) 4 mg disintegrating tablet Take 1 tablet by mouth every 8 hours as needed for nausea/vomiting. CPAP/BIPAP/OTHER Type .CPAPSettings into a note to see current settings/supplies/DME information. No current facility-administered medications for this visit. Allergies: Patient has no known allergies. ROS: General (negative for fatigue, malaise, weight loss/gain) HEENT (negative for headache, earache, recent vision changes, sinus pain, sore throat) Respiratory (no recent shortness of breath, hemoptysis) CV (negative for chest tightness, palpitations) Musculoskeletal (see HPI) Psych (no depression, anxiety) Gerardo Crowe MD [facility] History of Present illness Narrative* Sher Hollingsworth APRN.ELECT[employer]IC [employer]OVE [employer]CH[employer]IC - 01/27/2024 2:00 PM EDT SUBJECTIVE Katie Forde is a 23 year old female here today for a check up on her medical problems. Chief Complaint Patient presents with: Results: discuss A1C results HPI Katie Forde is a 23 year old female. She is an established patient of Kate Silva MD. Here today for concerns of lab results that manager club checked. Recent ultrasound noted Adenomyosis. Labs checked hgba1c and came back elevated at 6.6%. No prior diabetes diagnosis however she has a family history of DM. She also has a diagnosis of fatty liver. Currently does not routinely exercise, not watching diet. Her medications were reviewed today and her list is now up to date. Medications Current Outpatient Medications Medication Sig Norethindrone, Contraceptive, (SELMA) 0.35 mg tablet Take 1 tablet by mouth once daily. amphetamine-dextroamphetamine XR (ADDERALL XR) 30 mg capsule Take 1 capsule by mouth once daily for30 days. Do not start before January 12, 2024. methylphenidate (RITALIN) 20 mg tablet Take 1 tablet by mouth as needed for up to 30 days. Take at approx. 3-4 pm. Do not start before January 12, 2024. omeprazole (PRILOSEC) 20 mg capsule Take 1 capsule by mouth once daily. On empty stomach at least 30 minutes before eating. SUMAtriptan (IMITREX) 100 mg tablet Take 1 tablet (100 mg) by mouth as needed for migraine headache(see administration instructions). Take 1 by mouth at onset of migraine. May repeat after 2 hours as needed ondansetron orally disintegrating (ZOFRAN ODT) 4 mg disintegrating tablet Take 1 tablet by mouth every 8 hours as needed for nausea/vomiting. PARoxetine (PAXIL) 20 mg tablet Take 1 tablet by mouth once daily. Blood-Glucose Meter 1 Device as directed. For once daily testing blood sugar diagnostic (BLOOD GLUCOSE TEST) test strip Test blood sugar(s) one times daily. Dx: Type 2 DM - Controlled E11.9 Insulin: No Lancets Test blood sugar(s) one times daily. Dx: Type 2 DM - Controlled E11.9 Insulin: No dulaglutide (TRULICITY) 0.75 mg/0.5 mL pen injector Inject 0.75 mg subcutaneously one time a week. CPAP/BIPAP/OTHER Type .CPAPSettings into a note to see current settings/supplies/DME information. No current facility-administered medications for this visit. ALLERGIES No Known Allergies ACTIVE PROBLEM LIST Type 2 Diabetes Mellitus Without Complication, Without Long-Term Current Use of Insulin (Hcc) - 01/27/2024 Fatty Liver - 01/27/2024 Obesity, Class III, BMI >= 40 - 09/30/2022 Anxiety - 03/12/2022 Pain in Right Foot - 03/12/2022 Lab Test Positive for Detection of Covid-19 Virus - 07/04/2020 Oppositional Defiant Disorder - 02/03/2017 Migraine Without Status Migrainosus, Not Intractable - 04/22/2016 Depersonalization Disorder (Hcc) - 12/05/2015 Depression - 09/24/2013 Comment: followed by psychiatry Outbursts of Anger - 10/12/2012 Subluxation of Lens Comment: bilaterally Attention Deficit Hyperactivity Disorder (Adhd), Combined Type - 09/22/2008 Marfan's Syndrome - 03/05/2006 Social History Tobacco Use Smoking status: Former Types: Cigarettes Quit date: 2021 Years since quittin.5 Smokeless tobacco: Never Tobacco comments: Pt smoked 3 cigarettes daily x 2 months, quit 2021 Pt vapes Vaping Use Vaping Use: current everyday user Substances: Nicotine, Flavoring Devices: Pre-filled or refillable cartridge Substance Use Topics Alcohol use: Not Currently Comment: occasional Drug use: Not Currently Types: Marijuana Review of Systems Respiratory: Negative. Cardiovascular: Negative. OBJECTIVE BP 128/80 Pulse 100 Resp 20 Wt 317 lb (143.8kg) LMP 10/21/2023 Physical Exam Vitals and nursing note reviewed. Constitutional: General: She is awake. She is not in acute distress. Appearance: Normal appearance. She is well-developed and well-groomed. She is not ill-appearing, toxic-appearing or diaphoretic. HENT: Head: Normocephalic. Right Ear: External ear normal. Left Ear: External ear normal. Nose: Nose normal. Eyes: General: Vision grossly intact. Conjunctiva/sclera: Conjunctivae normal. Pupils: Pupils are equal, round, and reactive to light. Neck: Vascular: No JVD. Trachea: Trachea normal. Pulmonary: Effort: Pulmonary effort is normal. No accessory muscle usage, prolonged expiration or respiratory distress. Musculoskeletal: Cervical back: Neck supple. Skin: General: Skin is warm and dry. Capillary Refill: Capillary refill takes less than 2 seconds. Neurological: General: No focal deficit present. Mental Status: She is alert and oriented to person, place, and time. Mental status is at baseline. Psychiatric: Attention and Perception: Attention and perception normal. Mood and Affect: Mood and affect normal. Speech: Speech normal. Behavior: Behavior normal. Behavior is cooperative. Thought Content: Thought content normal. Cognition and Memory: Cognition and memory normal. Judgment: Judgment normal. ASSESSMENT/PLAN: 1. Type 2 diabetes mellitus without complication, without long-term current use of insulin ([facility]) - ICD9: 250.00, ICD10: E11.9 (primary diagnosis) - New diagnosis - [facility] - Blood glucose monitoring on a once daily schedule - Counseled on healthy diet and regular exercise - Discussed need for and benefit of weight loss. BMI 42.99 kg/(m^2) - Smoking cessation encouraged; discussed risks to health and quitting strategies. Patient is not ready to quit - Discussed diabetic education issues of diabetes complications and monitoring required, hypoglycemic/hyperglycemic symptoms, and medication-specific side effects and monitoring - Follow up in 4 weeks, sooner should any other issues arise. - BLOOD-GLUCOSE METER - BLOOD SUGAR DIAGNOSTIC STRIPS - LANCETS - DULAGLUTIDE 0.75 MG/0.5 ML SUBCUTANEOUS PEN INJECTOR 2. Fatty liver - ICD9: 571.8, ICD10: K76.0 - DULAGLUTIDE 0.75 MG/0.5 ML SUBCUTANEOUS PEN INJECTOR 3. Obesity, Class III, BMI >= 40 - ICD9: 278.01, ICD10: E66.01 - Behavioral intervention, - Pharmacological intervention, and - Add Dulaglutide (Trulicity) - DULAGLUTIDE 0.75 MG/0.5 ML SUBCUTANEOUS PEN INJECTOR 4. Adenomyosis - ICD9: 617.0, ICD10: N80.03 Spent time with the patient discussing how diabetes diagnosis was made. Both current and past labs were reviewed with patient. Topics that were covered were the personal goals for weight loss, dietary goals, any issues with smoking cessation, blood pressure goals, cholesterol goals, what [id number] means and what their goals are, how often the patient should be checking their glucose, what those goals are for those blood sugars, need for eye exams and eye complications due to diabetes, selffoot exam. Also discussed today were medication compliance issues. Recommend eye exam. Rx for glucometer kit to be sent to pharmacy. Referral to dietary offered today. See me in follow up as directed. Diabetes treatment goals reviewed, and relevant barriers identified and addressed. Patient to call with any medication concerns or plan of care questions. Patient to notify office ifany worsening or new onset of polyuria, polydipsia, polyphagia, change in vision, numbness, hypoglycemia, CP, or N/V/D. Majority of visit spent counseling patient in preventative and disease state management. Portions of this note have been entered by ancillary staff. I have reviewed and when necessary edited, so that they are an adequate record of my encounter with this patient Please note that parts of this document were created using voice recognition software and therefore may contain grammatical errors. Patient verbalizes understanding of instructions from today's visit and in agreement with treatmentplan. Questions answered. Agrees to call the office if questions, concerns of issues with acute symptoms not improving or if they worsen. See diagnoses and orders for additional plan(s). Allergies and medications were reviewed, list was updated, and refills given if needed. Past medical, surgical, social, and family history reviewed and updated as appropriate. Encouraged proper diet & exercise as well as compliance with taking medications. Age- appropriate health preventative measures were discussed. Return in about 4 weeks (around 02/24/2024) for recheck on new medication.. JB Winslow documented [facility]24 NoteHNO ID: [id number] Author: SHER HOLLINGSWORTH APRN.CNP Service: ? Author Type: Nurse Practitioner Type: Progress Notes Filed: 01/27/2024 15:06 Note Text: SUBJECTIVE Katie Forde is a 23 year old female here today for a check up on her medical problems. Chief Complaint Patient presents with: Results: discuss A1C results HPI Katie Forde is a 23 year old female. She is an established patient of Kate Silva MD. Here today for concerns of lab results that manager club checked. Recent ultrasound noted Adenomyosis. Labs checked hgba1c and came back elevated at 6.6%. No prior diabetes diagnosis however she has a family history of DM. She also has a diagnosis of fatty liver. Currently does not routinely exercise, not watching diet. Her medications were reviewed today and her list is now up to date. Medications Current Outpatient Medications Medication Sig Norethindrone, Contraceptive, (SELMA) 0.35 mg tablet Take 1 tablet by mouth once daily. amphetamine-dextroamphetamine XR (ADDERALL XR) 30 mg capsule Take 1 capsule by mouth once daily for 30 days. Do not start before January 12, 2024. methylphenidate (RITALIN) 20 mg tablet Take 1 tablet by mouth as needed for up to 30 days. Take at approx. 3-4 pm. Do not start before January 12, 2024. omeprazole (PRILOSEC) 20 mg capsule Take 1 capsule by mouth once daily. On empty stomach at least 30 minutes before eating. SUMAtriptan (IMITREX) 100 mg tablet Take 1 tablet (100 mg) by mouth as needed for migraine headache (see administration instructions). Take 1 by mouth at onset of migraine. May repeat after 2 hours as needed ondansetron orally disintegrating (ZOFRAN ODT) 4 mg disintegrating tablet Take 1 tablet by mouth every 8 hours as needed for nausea/vomiting. PARoxetine (PAXIL) 20 mg tablet Take 1 tablet by mouth once daily. Blood-Glucose Meter 1 Device as directed. For once daily testing blood sugar diagnostic (BLOOD GLUCOSE TEST) test strip Test blood sugar(s) one times daily. Dx: Type 2 DM - Controlled E11.9 Insulin: No Lancets Test blood sugar(s) one times daily. Dx: Type 2 DM - Controlled E11.9 Insulin: No dulaglutide (TRULICITY) 0.75 mg/0.5 mL pen injector Inject 0.75 mg subcutaneously one time a week. CPAP/BIPAP/OTHER Type .CPAPSettings into a note to see current settings/supplies/DME information. No current facility-administered medications for this visit. ALLERGIES No Known Allergies ACTIVE PROBLEM LIST Type 2 Diabetes Mellitus Without Complication, Without Long-Term Current Use of Insulin (Hcc) - 01/27/2024 Fatty Liver - 01/27/2024 Obesity, Class III, BMI >= 40 - 09/30/2022 Anxiety - 03/12/2022 Pain in Right Foot - 03/12/2022 Lab Test Positive for Detection of Covid-19 Virus - 07/04/2020 Oppositional Defiant Disorder - 02/03/2017 Migraine Without Status Migrainosus, Not Intractable - 04/22/2016 Depersonalization Disorder (Hcc) - 12/05/2015 Depression - 09/24/2013 Comment: followed by psychiatry Outbursts of Anger - 10/12/2012 Subluxation of Lens Comment: bilaterally Attention Deficit Hyperactivity Disorder (Adhd), Combined Type - 09/22/2008 Marfan's Syndrome - 03/05/2006 Social History Tobacco Use Smoking status: Former Types: Cigarettes Quit date: 2021 Years since quittin.5 Smokeless tobacco: Never Tobacco comments: Pt smoked 3 cigarettes daily x 2 months, quit 2021 Pt vapes Vaping Use Vaping Use: current everyday user Substances: Nicotine, Flavoring Devices: Pre-filled or refillable cartridge Substance Use Topics Alcohol use: Not Currently Comment: occasional Drug use: Not Currently Types: Marijuana Review of Systems Respiratory: Negative. Cardiovascular: Negative. OBJECTIVE BP 128/80 Pulse 100 Resp 20 Wt 317 lb (143.8kg) LMP 10/21/2023 Physical Exam Vitals and nursing note reviewed. Constitutional: General: She is awake. She is not in acute distress. Appearance: Normal appearance. She is well-developed and well-groomed. She is not ill-appearing, toxic-appearing or diaphoretic. HENT: Head: Normocephalic. Right Ear: External ear normal. Left Ear: External ear normal. Nose: Nose normal. Eyes: General: Vision grossly intact. Conjunctiva/sclera: Conjunctivae normal. Pupils: Pupils are equal, round, and reactive to light. Neck: Vascular: No JVD. Trachea: Trachea normal. Pulmonary: Effort: Pulmonary effort is normal. No accessory muscle usage, prolonged expiration or respiratory distress. Musculoskeletal: Cervical back: Neck supple. Skin: General: Skin is warm and dry. Capillary Refill: Capillary refill takes less than 2 seconds. Neurological: General: No focal deficit present. Mental Status: She is alert and oriented to person, place, and time. Mental status is at baseline. Psychiatric: Attention and Perception: Attention and perception normal. Mood and Affect: Mood and affect normal. Speech: Speech normal. Behavior (more content not included)...[facility]07-29-2024 Telephone encounter Note* Telephone Encounter - Pat Ferrer APRN.CNP - 01/26/2024 10:21 AM EDT Spoke with pt regard her labs. A1c 6.6, instructed her to call her PCP for further follow up. D/C provera and ordered Selma Discussed risk of miscarriage due to diabetes and the importance of weight loss and control blood sugar for . Pat Ferrer APRN.CNP [facility]07-29-2024 Miscellaneous Notes* Telephone Encounter - Pat Ferrer APRN.CNP - 01/26/2024 10:21 AM EDT Spoke with pt regard her labs. A1c 6.6, instructed her to call her PCP for further follow up. D/C provera and ordered Selma Discussed risk of miscarriage due to diabetes and the importance of weight loss and control blood sugar for . Pat Ferrer APRN.CNP documented in this encounterCleveland [id number] Note Indication Evaluation of abnormal uterine bleeding: Amenorrhea Impression Multiplanar images of the pelvic organs were obtained. An anteverted uterus seen that measures 74 mm x 37 mm x 47 mm. The myometrium is heterogeneous but no obvious fibroids are observed. The endometrial echo complex measures 3.7 mm. The right ovary appears normal with dominant follicle. The left ovary appears normal follicular. The Cul de Sac is Visualized and there is no free fluid visualized. This finding is suggestive of adenomyosis. Recommendations Clinical correlation is recommended. 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 Contraception: none Method Transabdominal, transvaginal, 3D ultrasound examination, Color Doppler examination. View: Adequate visualization Uterus Uterus: Visualized Uterus position: anteverted Myometrium: heterogeneous Endometrium: normal Cervix details: cystic lesions identified suggesting superficial Nabothian cysts Uterus length 74 mm Uterus width 47 mm Uterus height 37 mm Uterus Vol 68.0 cm Endometrial thickness, total 3.7 mm Fibroids: No fibroids identified Polyps: No polyps identified Right Ovary Rt ovary: Visualized Rt ovary morphology: premenopausal with dominant follicle Rt ovary D1 33 mm Rt ovary D2 21 mm Rt ovary D3 37 mm Rt ovary Vol 13.5 cm Rt ovarian follicle D1 19.6 mm Rt ovarian follicle D2 20.3 mm Rt ovarian follicle mean 19.9 mm Rt ovarian follicle vol 4.068 cm Left Ovary Lt ovary: Visualized Lt ovary morphology: premenopausal normal follicular Lt ovary D1 30 mm Lt ovary D2 22 mm Lt ovary D3 15 mm Lt ovary Vol 4.9 cm Cul de Sac Visualized. no free fluid visualized Performed By: Mary Richards RDMS Read By: Georgia Millan M.D.MATERNAL [id number] NoteHNO ID: [id number] Author: GEORGIA MILLAN MD Service: ? Author Type: Physician Type: Progress Notes Filed: 01/23/2024 13:31 Note Text: Katie Forde presents for scheduled SCIENTIFIC WRITER ultrasound. Please see full report under the Imaging tab in Epic for details. Georgia Millan [facility]07-26-2024 History of Present illness Narrative* Georgia Millan MD - 01/23/2024 1:13 PM EDT Katie Forde presents for scheduled SCIENTIFIC WRITER ultrasound. Please see full report under the Imaging tab in Epic for details. Georgia Millan MD documented in this encounterFair[facility]07-12-2024 Telephone encounter Note * Telephone Encounter - Kate Silva MD - 01/09/2024 9:01 PM EDT The following approved medication requests have been transmitted electronically. Requested Prescriptions Signed Prescriptions Disp Refills amphetamine-dextroamphetamine XR (ADDERALL XR) 30 mg capsule 30 capsule 0 Sig: Take 1 capsule by mouth once daily for 30 days. Do not start before January 12, 2024. Authorizing Provider: KATE SILVA methylphenidate (RITALIN) 20 mg tablet 30 tablet 0 Sig: Take 1 tablet by mouth as needed for up to 30 days. Take at approx. 3-4 pm. Do not start before January 12, 2024. Authorizing Provider: KATE SILVA MD [facility]07-12-[facility]24 Miscellaneous Notes* Telephone Encounter - Kate Silva MD - 01/09/2024 9:01 PM EDT The following approved medication requests have been transmitted electronically. Requested Prescriptions Signed Prescriptions Disp Refills amphetamine-dextroamphetamine XR (ADDERALL XR) 30 mg capsule 30 capsule 0 Sig: Take 1 capsule by mouth once daily for 30 days. Do not start before January 12, 2024. Authorizing Provider: KATE SILVA methylphenidate (RITALIN) 20 mg tablet 30 tablet 0 Sig: Take 1 tablet by mouth as needed for up to 30 days. Take at approx. 3-4 pm. Do not start before January 12, 2024. Authorizing Provider: KATE SILVA MD * Telephone Encounter - Zohreh Fregoso LPN - 01/09/2024 1:54 PM EDT Prescription Refill Information The patient has been identified by name and date of : Yes Caregiver verified no other encounters exist for this prescription request: Yes Caregiver confirmed with patient/requestor that no other refills are due, in the near future, with this provider at this time: Yes The last office visit in the department: 12/15/23 Does the patient have a future office visit with this provider/department: Yes Requested Prescriptions Pending Prescriptions Disp Refills amphetamine-dextroamphetamine XR (ADDERALL XR) 30 mg capsule 14 capsule 0 Sig: Take 1 capsule by mouth once daily for 14 days. methylphenidate (RITALIN) 20 mg tablet 30 tablet 0 Sig: Take 1 tablet by mouth as needed for up to 30 days. Take at approx. 3-4 pm. Zohreh Fregoso LPN January 09, 2024 1:54 PM * Telephone Encounter - Marcia Foley - 01/09/2024 10:53 AM EDT Prescription Refill Information The patient has been identified by name and date of : Yes Caregiver verified no other encounters exist for this prescription request: Yes Caregiver confirmed with patient/requestor that no other refills are due, in the near future, with this provider at this time: Yes The last office visit in the department: 12/15/2023 Does the patient have a future office visit with this provider/department: Yes 03/19/2024 Requested Prescriptions Pending Prescriptions Disp Refills amphetamine-dextroamphetamine XR (ADDERALL XR) 30 mg capsule 14 capsule 0 Sig: Take 1 capsule by mouth once daily for 14 days. methylphenidate (RITALIN) 20 mg tablet 30 tablet 0 Sig: Take 1 tablet by mouth as needed for up to 30 days. Take at approx. 3-4 pm. Marcia Faulkner January 09, 2024 10:54 AM documented in this encounterFairfield [facility] Center07-12-2024 Telephone encounter Note * Telephone Encounter - Zohreh Fregoso LPN - 01/09/2024 1:54 PM EDT Prescription Refill Information The patient has been identified by name and date of : Yes Caregiver verified no other encounters exist for this prescription request: Yes Caregiver confirmed with patient/requestor that no other refills are due, in the near future, with this provider at this time: Yes The last office visit in the department: 12/15/23 Does the patient have a future office visit with this provider/department: Yes Requested Prescriptions Pending Prescriptions Disp Refills amphetamine-dextroamphetamine XR (ADDERALL XR) 30 mg capsule 14 capsule 0 Sig: Take 1 capsule by mouth once daily for 14 days. methylphenidate (RITALIN) 20 mg tablet 30 tablet 0 Sig: Take 1 tablet by mouth as needed for up to 30 days. Take at approx. 3-4 pm. Zohreh Fregoso LPN January 09, 2024 1:54 PM [facility]07-12-2024 Telephone encounter Note* Telephone Encounter - Marcia Foley - 01/09/2024 10:53 AM EDT Prescription Refill Information The patient has been identified by name and date of : Yes Caregiver verified no other encounters exist for this prescription request: Yes Caregiver confirmed with patient/requestor that no other refills are due, in the near future, with this provider at this time: Yes The last office visit in the department: 12/15/2023 Does the patient have a future office visit with this provider/department: Yes 03/19/2024 Requested Prescriptions Pending Prescriptions Disp Refills amphetamine-dextroamphetamine XR (ADDERALL XR) 30 mg capsule 14 capsule 0 Sig: Take 1 capsule by mouth once daily for 14 days. methylphenidate (RITALIN) 20 mg tablet 30 tablet 0 Sig: Take 1 tablet by mouth as needed for up to 30 days. Take at approx. 3-4 pm. Marcia Faulkner January 09, 2024 10:54 AM [facility]06-24-20[facility] Instructions* Patient Instructions* Larry Joseph APRN.CNP - 12/22/2023 5:36 PM EDT ASSESSMENT/PLAN: 1. Foot injury, left, initial encounter - ICD9: 959.7, ICD10: S99.922A - XR FOOT GENERAL 3V AP/LAT/OBL LEFT RESULT: No acute fracture or dislocation. Joint spaces are maintained. IMPRESSION: No acute osseous abnormality. Fisher Purse Seine: SILVIANO Transcribe Date/Time: Dec 22 2023 4:56P Dictated by : STEPHANI VGEA MD - TONE wrap applied to left foot - RICE therapy as directed. - tylenol and/or ibuprofen as directed. - Follow-up with your PCP in 3-5 days if symptoms have not improved or sooner if symptoms worsen - Discussed red flags and need for immediate medical evaluation if any occur. - Discussed supportive care treatment with rest and analgesia. - Discussed expected course of illness Larry Joseph APRN.ELECTRIC STOVE MECH[employer]IC [employer] The general care of your injury [...] thin washcloth between the bag and your skin.Apply the ice bag to the area for at least 20 minutes. Do this at least 4 times per day. Using the ice for longer times and more frequently is OK. NEVER APPLY ICE DIRECTLY TO THE SKIN. COMPRESS: Compression means to apply pressure around the injured area such as with a splint, cast or an tone bandage. Compression decreases swelling and improves comfort. [...] pillows when lying down. documented in this encounterFairfield [facility] Center06-24-2024 History of Present illness Narrative* Cate Borja RT(R) - 12/22/2023 4:50 PM EDT Radiology Service Progress Note PATIENT NAME: Katie Forde DATE OF SERVICE: December 22, 2023 TIME: 4:44 PM PATIENT IDENTITY VERIFICATION COMPLETED USING TWO (2) IDENTIFIERS: Name and Date of confirmedby patient verbally. FALL SCREENING: Has the patient had 2 falls in the last year or 1 fall with injury or currently using an Ambulatory Assistive Device (Walker, Cane, Wheelchair, Crutches, etc.)? No PATIENT GENDER DATA: Female. status: : No status: NO. PATIENT RELEVANT IMPLANT DATA REVIEWED: Not Applicable PATIENT PRESENTS WITH AN IMPLANTABLE OR ATTACHED TUNNELLER: No RADIOLOGY DEPARTMENT: General X-ray: Exam(s) Completed: Lower Extremity X- Ray(s): Foot, Left PERIPHERAL IV DATA: Not applicable SIGNED BY: RT Casimiro(Sophie) December 22, 2023 4:44 PM documented in this encounterFairfield Medical Center06-24-2024 NoteHNO ID: [id number] Author: CATE BORJA RT(R) Service: Radiology Author Type: Technologist Type: Progress Notes Filed: 12/22/2023 16:51 Note Text: Radiology Service Progress Note PATIENT NAME: Katie Forde DATE OF SERVICE: December 22, 2023 TIME: 4:44 PM PATIENT IDENTITY VERIFICATION COMPLETED USING TWO (2) IDENTIFIERS: Name and Date of confirmed by patient verbally. FALL SCREENING: Has the patient had 2 falls in the last year or 1 fall with injury or currently using an Ambulatory Assistive Device (Walker, Cane, Wheelchair, Crutches, etc.)? No PATIENT GENDER DATA: Female. status: : No status: NO. PATIENT RELEVANT IMPLANT DATA REVIEWED: Not Applicable PATIENT PRESENTS WITH AN IMPLANTABLE OR ATTACHED TUNNELLER: No RADIOLOGY DEPARTMENT: General X-ray: Exam(s) Completed: Lower Extremity X-Ray(s): Foot, Left PERIPHERAL IV DATA: Not applicable SIGNED BY: Cate Borja, RT(R) December 22, 2023 4:[address] [facility]06-24-2024 NoteHNO ID: [id number] Author: LARRY JOSEPH APRN.ELECTRIC STOVE MECHANIC Service: ? Author Type: Nurse Practitioner Type: Progress Notes Filed: 12/22/2023 17:37 Note Text: Subjective Pain (foot) Pertinent negatives include no fever or itching. Katie Forde is a 22 year old female who presents with left foot injury. She was walking across her pool deck and slid and fell, injuring her left foot. She has pain on the top of her foot. This happened one hour ago. She took ibuprofen. She tried to use ice but it made it hurt more. She denies ankle pain or injury. Review of Systems Constitutional: Negative for chills and fever. Musculoskeletal: Positive for falls and joint pain. Skin: Negative for itching and rash. BP 124/72 Pulse 116 Temp 36.3 ?C (97.4 ?F) Resp 20 Wt (!) 145.4 kg (320 lb 8.8 oz) LMP 10/21/2023 (Exact Date) SpO2 97% BMI 43.47 kg/m? PAST MEDICAL HISTORY Diagnosis Date ADHD (attention [...] known allergies. MEDICATIONS methylphenidate (RITALIN) 20 mg tablet Take 1 tablet by mouth as needed for up to 30 days. Take at approx. 3-4 pm. SUMAtriptan (IMITREX) 100 mg tablet Take 1 tablet (100 mg) by mouth as needed for migraine headache (see administration instructions). Take 1 by mouth at onset of migraine. May repeat after 2 hours as needed amphetamine-dextroamphetamine XR (ADDERALL XR) 30 mg capsule Take 1 capsule by mouth once daily for 14 days. ondansetron orally disintegrating (ZOFRAN ODT) 4 mg disintegrating tablet Take 1 tablet by mouth every 8 hours as needed for nausea/vomiting. ciprofloxacin-dexAMETHasone (CIPRODEX) 0.3-0.1 % otic suspension Use 4 Drops in the right ear two times a day for 7 days. PARoxetine (PAXIL) 20 mg tablet Take 1 tablet by mouth once daily. medroxyPROGESTERone (PROVERA) 10 mg tablet Take 1 tablet by mouth once daily. CPAP/BIPAP/OTHER Type .CPAPSettings into a note to see current settings/supplies/DME information. FAMILY HISTORY Problem Relation Age of Onset [...] cigarettes daily x 2 months, quit 2021 Pt vapes Vaping Use Vaping Use: current everyday user Substances: Nicotine, Flavoring Devices: Pre-filled or refillable cartridge Substance Use Topics Alcohol use: Not Currently Comment: occasional Drug use: Not Currently Types: Marijuana Objective Physical Exam Vitals and nursing note reviewed. Constitutional: Appearance: Normal appearance. Musculoskeletal: General: Signs of injury present. No swelling or deformity. Left foot: Normal range of motion and normal capillary refill. Tenderness present. No swelling, deformity or crepitus. Normal pulse. Skin: General: Skin is warm and dry. Findings: No bruising, erythema or rash. Neurological: Mental Status: She is alert. ASSESSMENT/PLAN: 1. Foot injury, left, initial encounter - ICD9: 959.7, ICD10: S99.922A - XR FOOT GENERAL 3V AP/LAT/OBL LEFT RESULT: No acute fracture or dislocation. Joint spaces are maintained. IMPRESSION: No acute osseous abnormality. Fisher Purse Seine: SILVIANO Transcribe Date/Time: Dec 22 2023 4:56P Dictated by : STEPHANI VEGA MD - TONE wrap applied to left foot - RICE therapy as directed. - tylenol and/or ibuprofen as directed. - Follow-up with your PCP in 3-5 days if symptoms have not improved or sooner if symptoms worsen - Discussed red flags and need for immediate medical evaluation if any occur. - Discussed supportive care treatment with rest and analgesia. - Discussed expected course of illness Larry Joseph APRN.[facility] History of Present illness Narrative* Larry Joseph APRN.ELECTRIC STOVE MECHANIC - 12/22/2023 4:45 PM EDT Subjective Pain (foot) Pertinent negatives include no fever or itching. Katie Forde is a 22 year old female who presents with left foot injury. She was walking across her pool deck and slid and fell, injuring her left foot. She has pain on the top of her foot. This happened one hour ago. She took ibuprofen. She tried to use ice but it made it hurt more. She denies ankle pain or injury. Review of Systems Constitutional: Negative for chills and fever. Musculoskeletal: Positive for falls and joint pain. Skin: Negative for itching and rash. BP 124/72 Pulse 116 Temp 36.3 C (97.4 F) Resp 20 Wt (!) 145.4 kg (320 lb 8.8 oz) LMP 10/21/2023 (Exact Date) SpO2 97% BMI 43.47 kg/m PAST MEDICAL HISTORY Diagnosis Date ADHD [...] known allergies. MEDICATIONS methylphenidate (RITALIN) 20 mg tablet Take 1 tablet by mouth as needed for up to 30 days. Take at approx. 3-4 pm. SUMAtriptan (IMITREX) 100 mg tablet Take 1 tablet (100 mg) by mouth as needed for migraine headache(see administration instructions). Take 1 by mouth at onset of migraine. May repeat after 2 hours as needed amphetamine-dextroamphetamine XR (ADDERALL XR) 30 mg capsule Take 1 capsule by mouth once daily for14 days. ondansetron orally disintegrating (ZOFRAN ODT) 4 mg disintegrating tablet Take 1 tablet by mouth every 8 hours as needed for nausea/vomiting. ciprofloxacin-dexAMETHasone (CIPRODEX) 0.3-0.1 % otic suspension Use 4 Drops in the right ear two times a day for 7 days. PARoxetine (PAXIL) 20 mg tablet Take 1 tablet by mouth once daily. medroxyPROGESTERone (PROVERA) 10 mg tablet Take 1 tablet by mouth once daily. CPAP/BIPAP/OTHER Type .CPAPSettings into a note to see current settings/supplies/DME information. FAMILY HISTORY Problem Relation Age of Onset [...] cigarettes daily x 2 months, quit 2021 Pt vapes Vaping Use Vaping Use: current everyday user Substances: Nicotine, Flavoring Devices: Pre-filled or refillable cartridge Substance Use Topics Alcohol use: Not Currently Comment: occasional Drug use: Not Currently Types: Marijuana Objective Physical Exam Vitals and nursing note reviewed. Constitutional: Appearance: Normal appearance. Musculoskeletal: General: Signs of injury present. No swelling or deformity. Left foot: Normal range of motion and normal capillary refill. Tenderness present. No swelling, deformity or crepitus. Normal pulse. Skin: General: Skin is warm and dry. Findings: No bruising, erythema or rash. Neurological: Mental Status: She is alert. ASSESSMENT/PLAN: 1. Foot injury, left, initial encounter - ICD9: 959.7, ICD10: S99.922A - XR FOOT GENERAL 3V AP/LAT/OBL LEFT RESULT: No acute fracture or dislocation. Joint spaces are maintained. IMPRESSION: No acute osseous abnormality. Fisher Purse Seine: SILVIANO Transcribe Date/Time: Dec 22 2023 4:56P Dictated by : STEPHANI VEGA MD - TONE wrap applied to left foot - RICE therapy as directed. - tylenol and/or ibuprofen as directed. - Follow-up with your PCP in 3-5 days if symptoms have not improved or sooner if symptoms worsen - Discussed red flags and need for immediate medical evaluation if any occur. - Discussed supportive care treatment with rest and analgesia. - Discussed expected course of illness Larry Joseph APRN.ELECTRIC STOVE MECHANIC documented in this encounterFairfield Medical Center06-19-2024 History of Present illness Narrative* Cate Borja RT(R) - 12/17/2023 9:40 AM EDT Radiology Service Progress Note PATIENT NAME: Katie Forde DATE OF SERVICE: December 17, 2023 TIME: 9:46 AM PATIENT IDENTITY VERIFICATION COMPLETED USING TWO (2) IDENTIFIERS: Name and Date of confirmedby patient verbally. FALL SCREENING: Has the patient had 2 falls in the last year or 1 fall with injury or currently using an Ambulatory Assistive Device (Walker, Cane, Wheelchair, Crutches, etc.)? No PATIENT GENDER DATA: Female. status: : No status: NO. PATIENT RELEVANT IMPLANT DATA REVIEWED: Not Applicable PATIENT PRESENTS WITH AN IMPLANTABLE OR ATTACHED TUNNELLER: No RADIOLOGY DEPARTMENT: General X-ray: Exam(s) Completed: Upper Extremity X- Ray(s): Hand, right PERIPHERAL IV DATA: Not applicable SIGNED BY: RT Casimiro(R) December 17, 2023 9:46 AM documented in this encounterFairfield [facility] Center06-19-2024 NoteHNO ID: [id number] Author: CATE BORJA RT(Sophie) Service: Radiology Author Type: Technologist Type: Progress Notes Filed: 12/17/2023 09:52 Note Text: Radiology Service Progress Note PATIENT NAME: Katie Forde DATE OF SERVICE: December 17, 2023 TIME: 9:46 AM PATIENT IDENTITY VERIFICATION COMPLETED USING TWO (2) IDENTIFIERS: Name and Date of confirmed by patient verbally. FALL SCREENING: Has the patient had 2 falls in the last year or 1 fall with injury or currently using an Ambulatory Assistive Device (Walker, Cane, Wheelchair, Crutches, etc.)? No PATIENT GENDER DATA: Female. status: : No status: NO. PATIENT RELEVANT IMPLANT DATA REVIEWED: Not Applicable PATIENT PRESENTS WITH AN IMPLANTABLE OR ATTACHED TUNNELLER: No RADIOLOGY DEPARTMENT: General X-ray: Exam(s) Completed: Upper Extremity X-Ray(s): Hand, right PERIPHERAL IV DATA: Not applicable SIGNED BY: RT Casimiro(R) December 17, 2023 9:46 [facility]06-19-2024 NoteHNO ID: [id number] Author: DUSTY GARCÍA APRN.MERLIN Service: ? Author Type: Nurse Practitioner Type: Progress Notes Filed: 12/17/2023 10:48 Note Text: This note was created using Natural Convergenceriter. Subjective Katie Forde is a 22 year old female. HPI Jul 25 pt punched a headboard of a bed. At that time her third mcp joint became very swollen and painful. Xray at that time was negative. Pt has had ongoing pain ever since. She denies any subsequent injuries. She presents today requesting a repeat xray. Review of Systems Musculoskeletal: Positive for arthralgias. Objective BP 122/78 Pulse 107 Temp 36.6 ?C (97.9 ?F) (Tympanic) Resp 18 Wt (!) 144.4 kg (318 lb 6.4 oz) LMP 10/21/2023 (Exact Date) SpO2 98% BMI 43.18 kg/m? Physical Exam Vitals and nursing note reviewed. Constitutional: General: She is not in acute distress. Appearance: Normal appearance. She is not ill-appearing. HENT: Head: Normocephalic. Mouth/Throat: Mouth: Mucous membranes are moist. Eyes: Conjunctiva/sclera: Conjunctivae normal. Cardiovascular: Rate and Rhythm: Regular rhythm. Tachycardia present. Pulmonary: Effort: Pulmonary effort is normal. Musculoskeletal: General: Normal range of motion. Cervical back: Normal range of motion. Comments: Diffuse tenderness over the dorsal aspect of the right hand and to the ulnar aspect of the right wrist with no obvious swelling or deformities noted. There is no ecchymosis noted. Skin: General: Skin is warm and dry. Neurological: General: No focal deficit present. Mental Status: She is alert. Psychiatric: Mood and Affect: Mood normal. Behavior: Behavior normal. Assessment and Plan ASSESSMENT/PLAN: 1. Right hand pain - ICD9: 729.5, ICD10: M79.641 X-ray of the hand is reviewed by myself shows no signs of fracture or dislocation. I discussed with patient as she has had this ongoing pain for the last 6 months I would recommend follow-up with orthopedics to which she was agreeable. Patient will continue use [id number] pain medication as needed. - XR HAND GENERAL 3V PA/LAT/OBL RIGHT - CONSULT PANEL TO ORTHOPAEDICS Dusty García APRN.[facility]06-19-2024 History of Present illness Narrative* Dusty García APRN.[employer] - 12/17/2023 9:26 AM EDT This note was created using Natural Convergencer[employer]. Subjective Katie Forde is a 22 year old female. HPI Jul 25 pt punched a headboard of a bed. At that time her third mcp joint became very swollen and painful. Xray at that time was negative. Pt has had ongoing pain ever since. She denies any subsequent injuries. She presents today requesting a repeat xray. Review of Systems Musculoskeletal: Positive for arthralgias. Objective BP 122/78 Pulse 107 Temp 36.6 C (97.9 F) (Tympanic) Resp 18 Wt (!) 144.4 kg (318 lb 6.4 oz) LMP 10/21/2023 (Exact Date) SpO2 98% BMI 43.18 kg/m Physical Exam Vitals and nursing note reviewed. Constitutional: General: She is not in acute distress. Appearance: Normal appearance. She is not ill-appearing. HENT: Head: Normocephalic. Mouth/Throat: Mouth: Mucous membranes are moist. Eyes: Conjunctiva/sclera: Conjunctivae normal. Cardiovascular: Rate and Rhythm: Regular rhythm. Tachycardia present. Pulmonary: Effort: Pulmonary effort is normal. Musculoskeletal: General: Normal range of motion. Cervical back: Normal range of motion. Comments: Diffuse tenderness over the dorsal aspect of the right hand and to the ulnar aspect of the right wrist with no obvious swelling or deformities noted. There is no ecchymosis noted. Skin: General: Skin is warm and dry. Neurological: General: No focal deficit present. Mental Status: She is alert. Psychiatric: Mood and Affect: Mood normal. Behavior: Behavior normal. Assessment and Plan ASSESSMENT/PLAN: 1. Right hand pain - ICD9: 729.5, ICD10: M79.641 X-ray of the hand is reviewed by myself shows no signs of fracture or dislocation. I discussed withpatient as she has had this ongoing pain for the last 6 months I would recommend follow-up with orthopedics to which she was agreeable. Patient will continue use [id number] pain medication as needed. - XR HAND GENERAL 3V PA/LAT/OBL RIGHT - CONSULT PANEL TO ORTHOPAEDICS Dusty García APRN.[employer]CH[employer] documented in this encounterFairfield Medical Center06-18-2024 Telephone encounter Note * Telephone Encounter - Rose Carmona RN - 12/16/2023 8:51 AM EDT Reviewed Medication list and seen Ordered On: 4Discontinued On: 12/15/2023 New RX for Diflucan pending. Rose Carmona RN [facility]06-18-2024 Miscellaneous Notes* Telephone Encounter - Rose Carmona RN - 12/16/2023 8:51 AM EDT Reviewed Medication list and seen Ordered On: 4Discontinued On: 12/15/2023 New RX for Diflucan pending. Rose Carmona RN documented in this encounterFairfield [facility] Center06-17-2024 Telephone encounter Note * Telephone Encounter - Karen Urias LPN - 12/15/2023 6:28 PM EDT Patient has been identified by name and date of : Yes Patient phones for refill(s): Requested Prescriptions Pending Prescriptions Disp Refills methylphenidate (RITALIN) 20 mg tablet 30 tablet 0 Sig: Take 1 tablet by mouth as needed for up to 30 days. Take at approx. 3-4 pm. Date of last office visit in primary care: 12/15/2023 Date of next office visit in primary care: 03/19/2024 Please advise. Thank you. Karen Urias LPN. [facility]06-17-20[facility] Miscellaneous Notes* Telephone Encounter - Karen Urias LPN - 12/15/2023 6:28 PM EDT Patient has been identified by name and date of : Yes Patient phones for refill(s): Requested Prescriptions Pending Prescriptions Disp Refills methylphenidate (RITALIN) 20 mg tablet 30 tablet 0 Sig: Take 1 tablet by mouth as needed for up to 30 days. Take at approx. 3-4 pm. Date of last office visit in primary care: 12/15/2023 Date of next office visit in primary care: 03/19/2024 Please advise. Thank you. Karen Urias LPN. documented in this encounterFairfield Medical Center06-17-2024 Nurse Note* Kierra Byrd MA - 12/15/2023 1:30 PM EDT Ambulatory Ear Lavage Pre-treatment: No pre-treatment Treatment: Right ear Equipment and Irrigation solution and Volume used: Single use syringe with single use irrigation tip Water Total Irrigation Volume: 150 ml Return flow appearance: Yellow Patient tolerated procedure: yes Tympanic membrane assessment: Tympanic membrane assessed by LIP pre and post procedure Kierra Byrd MA December 15, 2023 1:31 PM [facility] Nurse Note* Kierra Byrd MA - 12/15/2023 1:30 PM EDT Ambulatory Ear Lavage Pre-treatment: No pre-treatment Treatment: Right ear Equipment and Irrigation solution and Volume used: Single use syringe with single use irrigation tip Water Total Irrigation Volume: 150 ml Return flow appearance: Yellow Patient tolerated procedure: yes Tympanic membrane assessment: Tympanic membrane assessed by LIP pre and post procedure Kierra Byrd MA December 15, 2023 1:31 PM documented in this encounterFairfield Medical Center06-17-2024 NoteHNO ID: [id number] Author: SHER HOLLINGSWORTH APRN.[employer]CH[employer] Service: ? Author Type: Nurse Practitioner Type: Progress Notes Filed: 12/15/2023 13:43 Note Text: SUBJECTIVE Katie Forde is a 22 year old female here today for a check up on her medical problems. Chief Complaint Patient presents with: F/U 3 Month: Migraine/ADHD HPI Katie Forde is a 22 year old female. She is an established patient of Kate Silva MD. Accompanied by mom, here today for a routine 3 month follow up. She did have an episode of dizziness, some right ear pain. Questioning an ear infection. This was worse with side to side head movements. Migraines doing okay. Topamax not helping, not taking this. Imitrex helps but could be more helpful. ADHD is stable, getting tasks competed. Mom agrees. Her medications were reviewed today and her list is now up to date. Medications Current Outpatient Medications Medication Sig methylphenidate (RITALIN) 20 mg tablet Take 1 tablet by mouth as needed for up to 30 days. Take at approx. 3-4 pm. Do not start before December 14, 2023. PARoxetine (PAXIL) 20 mg tablet Take 1 tablet by mouth once daily. medroxyPROGESTERone (PROVERA) 10 mg tablet Take 1 tablet by mouth once daily. CPAP/BIPAP/OTHER Type .CPAPSettings into a note to see current settings/supplies/DME information. SUMAtriptan (IMITREX) 100 mg tablet Take 1 tablet (100 mg) by mouth as needed for migraine headache (see administration instructions). Take 1 by mouth at onset of migraine. May repeat after 2 hours as needed amphetamine-dextroamphetamine XR (ADDERALL XR) 30 mg capsule Take 1 capsule by mouth once daily for 14 days. ondansetron orally disintegrating (ZOFRAN ODT) 4 mg disintegrating tablet Take 1 tablet by mouth every 8 hours as needed for nausea/vomiting. ciprofloxacin-dexAMETHasone (CIPRODEX) 0.3-0.1 % otic suspension Use 4 Drops in the right ear two times a day for 7 days. No current facility-administered medications for this visit. ALLERGIES No Known Allergies ACTIVE PROBLEM LIST Obesity, Class III, BMI >= 40 - 09/30/2022 Anxiety - 03/12/2022 Pain in Right Foot - 03/12/2022 Lab Test Positive for Detection of Covid-19 Virus - 07/04/2020 Oppositional Defiant Disorder - 02/03/2017 Migraine Without Status Migrainosus, Not Intractable - 04/22/2016 Depersonalization Disorder (Hcc) - 12/05/2015 Depression - 09/24/2013 Comment: followed by psychiatry Outbursts of Anger - 10/12/2012 Subluxation of Lens Comment: bilaterally Attention Deficit Hyperactivity Disorder (Adhd), Combined Type - 09/22/2008 Marfan's Syndrome - 03/05/2006 Social History Tobacco Use Smoking status: Former Types: Cigarettes Quit date: 2021 Years since quittin.4 Smokeless tobacco: Never Tobacco comments: Pt smoked 3 cigarettes daily x 2 months, quit 2021 Pt vapes Vaping Use Vaping Use: current everyday user Substances: Nicotine, Flavoring Devices: Pre-filled or refillable cartridge Substance Use Topics Alcohol use: Not Currently Comment: occasional Drug use: Not Currently Types: Marijuana Review of Systems HENT: Positive for ear pain. Respiratory: Negative. Cardiovascular: Negative. OBJECTIVE BP 128/76 Pulse 102 Resp 16 Wt 315 lb (142.9kg) SpO2 97% LMP 10/21/2023 Physical Exam Vitals and nursing note reviewed. Constitutional: General: She is awake. She is not in acute distress. Appearance: Normal appearance. She is well-developed and well-groomed. She is not ill-appearing, toxic-appearing or diaphoretic. HENT: Head: Normocephalic. Right Ear: External ear normal. There is impacted cerumen. Tympanic membrane is not erythematous. Left Ear: Hearing, tympanic membrane, ear canal and external ear normal. Ears: Comments: Right ear with 100% occlusion, irrigated per support dba and then manual removal of 80% of wax, TM intact and not erythematous but canal is erythematous. Nose: Nose normal. Eyes: General: Vision grossly intact. Conjunctiva/sclera: Conjunctivae normal. Pupils: Pupils are equal, round, and reactive to light. Neck: Vascular: No JVD. Trachea: Trachea normal. Cardiovascular: Rate and Rhythm: Normal rate and regular rhythm. Pulses: Normal pulses. Heart sounds: Normal heart sounds. No murmur heard. Pulmonary: Effort: Pulmonary effort is normal. No accessory muscle usage, prolonged expiration or respiratory distress. Breath sounds: Normal breath sounds. Musculoskeletal: Cervical back: Neck supple. Skin: General: Skin is warm and dry. Capillary Refill: Capillary refill takes less than 2 seconds. Neurological: General: No focal deficit present. Mental Status: She is alert and oriented to person, place, and time. Mental status is at baseline. Psychiatric: Attention and Perception: Attention and perception normal. Mood and Affect: Mood and affect normal. Speech: Speech normal. Behavior: Behavior normal. Behavior is (more content not included)...[facility]06-17-2024 History of Present illness Narrative* Sher Hollingsworth APRN.[employer] [facility] [employer] - 12/15/2023 1:04 PM EDT SUBJECTIVE Katie Forde is a 22 year old female here today for a check up on her medical problems. Chief Complaint Patient presents with: F/U 3 Month: Migraine/ADHD HPI Katie Forde is a 22 year old female. She is an established patient of Kate Silva MD. Accompanied by mom, here today for a routine 3 month follow up. She did have an episode of dizziness, some right ear pain. Questioning an ear infection. This was worse with side to side head movements. Migraines doing okay. Topamax not helping, not taking this. Imitrex helps but could be more helpful. ADHD is stable, getting tasks competed. Mom agrees. Her medications were reviewed today and her list is now up to date. Medications Current Outpatient Medications Medication Sig methylphenidate (RITALIN) 20 mg tablet Take 1 tablet by mouth as needed for up to 30 days. Take at approx. 3-4 pm. Do not start before December 14, 2023. PARoxetine (PAXIL) 20 mg tablet Take 1 tablet by mouth once daily. medroxyPROGESTERone (PROVERA) 10 mg tablet Take 1 tablet by mouth once daily. CPAP/BIPAP/OTHER Type .CPAPSettings into a note to see current settings/supplies/DME information. SUMAtriptan (IMITREX) 100 mg tablet Take 1 tablet (100 mg) by mouth as needed for migraine headache(see administration instructions). Take 1 by mouth at onset of migraine. May repeat after 2 hours as needed amphetamine-dextroamphetamine XR (ADDERALL XR) 30 mg capsule Take 1 capsule by mouth once daily for14 days. ondansetron orally disintegrating (ZOFRAN ODT) 4 mg disintegrating tablet Take 1 tablet by mouth every 8 hours as needed for nausea/vomiting. ciprofloxacin-dexAMETHasone (CIPRODEX) 0.3-0.1 % otic suspension Use 4 Drops in the right ear two times a day for 7 days. No current facility-administered medications for this visit. ALLERGIES No Known Allergies ACTIVE PROBLEM LIST Obesity, Class III, BMI >= 40 - 09/30/2022 Anxiety - 03/12/2022 Pain in Right Foot - 03/12/2022 Lab Test Positive for Detection of Covid-19 Virus - 07/04/2020 Oppositional Defiant Disorder - 02/03/2017 Migraine Without Status Migrainosus, Not Intractable - 04/22/2016 Depersonalization Disorder (Hcc) - 12/05/2015 Depression - 09/24/2013 Comment: followed by psychiatry Outbursts of Anger - 10/12/2012 Subluxation of Lens Comment: bilaterally Attention Deficit Hyperactivity Disorder (Adhd), Combined Type - 09/22/2008 Marfan's Syndrome - 03/05/2006 Social History Tobacco Use Smoking status: Former Types: Cigarettes Quit date: 2021 Years since quittin.4 Smokeless tobacco: Never Tobacco comments: Pt smoked 3 cigarettes daily x 2 months, quit 2021 Pt vapes Vaping Use Vaping Use: current everyday user Substances: Nicotine, Flavoring Devices: Pre-filled or refillable cartridge Substance Use Topics Alcohol use: Not Currently Comment: occasional Drug use: Not Currently Types: Marijuana Review of Systems HENT: Positive for ear pain. Respiratory: Negative. Cardiovascular: Negative. OBJECTIVE BP 128/76 Pulse 102 Resp 16 Wt 315 lb (142.9kg) SpO2 97% LMP 10/21/2023 Physical Exam Vitals and nursing note reviewed. Constitutional: General: She is awake. She is not in acute distress. Appearance: Normal appearance. She is well-developed and well-groomed. She is not ill-appearing, toxic-appearing or diaphoretic. HENT: Head: Normocephalic. Right Ear: External ear normal. There is impacted cerumen. Tympanic membrane is not erythematous. Left Ear: Hearing, tympanic membrane, ear canal and external ear normal. Ears: Comments: Right ear with 100% occlusion, irrigated per support dba and then manual removal of 80%of wax, TM intact and not erythematous but canal is erythematous. Nose: Nose normal. Eyes: General: Vision grossly intact. Conjunctiva/sclera: Conjunctivae normal. Pupils: Pupils are equal, round, and reactive to light. Neck: Vascular: No JVD. Trachea: Trachea normal. Cardiovascular: Rate and Rhythm: Normal rate and regular rhythm. Pulses: Normal pulses. Heart sounds: Normal heart sounds. No murmur heard. Pulmonary: Effort: Pulmonary effort is normal. No accessory muscle usage, prolonged expiration or respiratory distress. Breath sounds: Normal breath sounds. Musculoskeletal: Cervical back: Neck supple. Skin: General: Skin is warm and dry. Capillary Refill: Capillary refill takes less than 2 seconds. Neurological: General: No focal deficit present. Mental Status: She is alert and oriented to person, place, and time. Mental status is at baseline. Psychiatric: Attention and Perception: Attention and perception normal. Mood and Affect: Mood and affect normal. Speech: Speech normal. Behavior: Behavior normal. Behavior is cooperative. Thought Content: Thought content normal. Cognition and Memory: Cognition and memory normal. Judgment: Judgment normal. ASSESSMENT/PLAN: 1. Migraine without status migrainosus, not intractable, unspecified migraine type - ICD9: 346.90, ICD10: G43.909 (primary diagnosis) Increase Imitrex to 100 mg. - SUMATRIPTAN 100 MG TABLET - ONDANSETRON 4 MG DISINTEGRATING TABLET 2. Attention deficit hyperactivity disorder (ADHD), combined type - ICD9: 314.01, ICD10: F90.2 Stable, no signs misuse or abuse. - DEXTROAMPHETAMINE-AMPHETAMINE ER 30 MG 24HR CAPSULE,EXTEND RELEASE 3. Impacted cerumen of right ear - ICD9: 380.4, ICD10: H61.21 - AMBULATORY EAR LAVAGE/IRRIGATION 4. Acute otitis externa of right ear, unspecified type - ICD9: 380.10, ICD10: H60.501 - CIPROFLOXACIN 0.3 %-DEXAMETHASONE 0.1 % EAR DROPS,SUSPENSION Portions of this note have been entered by ancillary staff. I have reviewed and when necessary edited, so that they are an adequate record of my encounter with this patient Please note that parts of this document were created using voice recognition software and therefore may contain grammatical errors. Patient verbalizes understanding of instructions from today's visit and in agreement with treatmentplan. Questions answered. Agrees to call the office if questions, concerns of issues with acute symptoms not improving or if they worsen. See diagnoses and orders for additional plan(s). Allergies and medications were reviewed, list was updated, and refills given if needed. Past medical, surgical, social, and family history reviewed and updated as appropriate. Encouraged proper diet & exercise as well as compliance with taking medications. Age- appropriate health preventative measures were discussed. Return if symptoms worsen or fail to improve, for Keep next scheduled appointment.. Sher Hollingsworth APRN-MERLIN documented in this encounterFairfield [facility] Center06-17-2024 Telephone encounter Note * Telephone Encounter - Ximena Rodriguez RN - 12/15/2023 11:09 AM EDT Patient notified and voiced understanding. Ximena Rodriguez RN [facility]06-17-2024 Miscellaneous Notes* Telephone Encounter - Ximena Rodriguez RN - 12/15/2023 11:09 AM EDT Patient notified and voiced understanding. Ximena Rodriguez RN * Telephone Encounter - Rose Carmona RN - 12/15/2023 8:31 AM EDT Left message for patient to call office. Rose Carmona RN * Telephone Encounter - Pat Ferrer APRN.CNP - 12/15/2023 7:07 AM EDT +yeast, Diflucan sent. Pat Ferrer APRN.CNP documented in this encounterFairfield Medical Center06-17-2024 Telephone encounter Note * Telephone Encounter - Rose Carmona RN - 12/15/2023 8:31 AM EDT Left message for patient to call office. Rose Carmona RN [facility]06-17-2024 Telephone encounter Note* Telephone Encounter - Pat Ferrer APRN.CNP - 12/15/2023 7:07 AM EDT +yeast, Diflucan sent. Pat Ferrer APRN.CNP [facility]06-14-2024 NoteHNO ID: [id number] Author: PAT FERRER APRN.CNP Service: ? Author Type: Nurse Practitioner Type: Progress Notes Filed: 12/12/2023 13:05 Note Text: 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 Katie Forde is a 22 year old female who presents for vaginal pruritis, burning, and discharge for 1 month(s). Vaginal discharge: scant amount. Itching: YES Fever/chills: No Abdominal pain: No Bladder: Negative for dysuria or frequency Are you currently taking any medications to treat vaginitis: No Past medical, surgical, social history, medications and allergies reviewed and updated. OBJECTIVE: BP 122/80 Pulse 104 Resp 14 Ht 6' 0 (1.83m) Wt 313 lb 12.8 oz (142.3kg) SpO2 96% LMP 10/21/2023 BMI 42.55 kg/(m2). GENERAL: Well developed, well nourished in no apparent distress PELVIC: external genitalia normal, normal Bartholin's glands, urethra, So-Hi's glands, no vulvar lesions, no cervical lesions, good vaginal support, physiologic discharge present, normal appearing perineal body and perianal region BIMANUAL: deferred. ASSESSMENT/PLAN: 1. Vaginal itching - ICD9: 698.1, ICD10: N89.8 Will notify patient of test results. - YEIMY/TRICHOMONAS NAAT - BACTERIAL VAGINOSIS NAAT Pat Ferrer APRN.MERLIN Medical Decision Making: Problems: Moderate: New problem with uncertain prognosis Data: Unique test(s) ordered: 2 Risk: Low: Low risk from testing/treatment Medical Decision Making Level: 3 - [facility] History of Present illness Narrative* Pat Ferrer APRN.ELECTRIC [employer]OVE MECHANIC - 12/12/2023 12:35 PM EDT 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 Katie Forde is a 22 year old female who presents for vaginal pruritis, burning, and discharge for 1 month(s). Vaginal discharge: scant amount. Itching: YES Fever/chills: No Abdominal pain: No Bladder: Negative for dysuria or frequency Are you currently taking any medications to treat vaginitis: No Past medical, surgical, social history, medications and allergies reviewed and updated. OBJECTIVE: BP 122/80 Pulse 104 Resp 14 Ht 6' 0 (1.83m) Wt 313 lb 12.8 oz (142.3kg) SpO2 96% LMP 10/21/2023 BMI 42.55 kg/(m^2). GENERAL: Well developed, well nourished in no apparent distress PELVIC: external genitalia normal, normal Bartholin's glands, urethra, So-Hi's glands, no vulvar lesions, no cervical lesions, good vaginal support, physiologic discharge present, normal appearing perineal body and perianal region BIMANUAL: deferred. ASSESSMENT/PLAN: 1. Vaginal itching - ICD9: 698.1, ICD10: N89.8 Will notify patient of test results. - YEIMY/TRICHOMONAS NAAT - BACTERIAL VAGINOSIS NAAT Pat Ferrer APRN.CNP Medical Decision Making: Problems: Moderate: New problem with uncertain prognosis Data: Unique test(s) ordered: 2 Risk: Low: Low risk from testing/treatment Medical Decision Making Level: 3 - Low documented in this encounterFairfield [facility] Center06-13-2024 Telephone encounter Note * Telephone Encounter - Kate Silva MD - 12/11/2023 9:53 PM EDT Patient has 12/14 appointment The following approved medication requests have been transmitted electronically. Requested Prescriptions Signed Prescriptions Disp Refills methylphenidate (RITALIN) 20 mg tablet 30 tablet 0 Sig: Take 1 tablet by mouth as needed for up to 30 days. Take at approx. 3-4 pm. Do not start before December 14, 2023. Authorizing Provider: KATE SILVA amphetamine-dextroamphetamine XR (ADDERALL XR) 30 mg capsule 30 capsule 0 Sig: Take 1 capsule by mouth every morning for 30 days. Do not start before December 28, 2023. Authorizing Provider: KATE SILVA MD [facility]06-13-20[facility] Miscellaneous Notes* Telephone Encounter - Kate Silva MD - 12/11/2023 9:53 PM EDT Patient has 12/14 appointment The following approved medication requests have been transmitted electronically. Requested Prescriptions Signed Prescriptions Disp Refills methylphenidate (RITALIN) 20 mg tablet 30 tablet 0 Sig: Take 1 tablet by mouth as needed for up to 30 days. Take at approx. 3-4 pm. Do not start before December 14, 2023. Authorizing Provider: KATE SILVA amphetamine-dextroamphetamine XR (ADDERALL XR) 30 mg capsule 30 capsule 0 Sig: Take 1 capsule by mouth every morning for 30 days. Do not start before December 28, 2023. Authorizing Provider: KATE SILVA MD * Telephone Encounter - Negin Recinos LPN - 12/10/2023 3:23 PM EDT Prescription Refill Information The patient has been identified by name and date of : Yes Caregiver verified no other encounters exist for this prescription request: Yes Caregiver confirmed with patient/requestor that no other refills are due, in the near future, with this provider at this time: Yes The last office visit in the department: 09/16/2023 Does the patient have a future office visit with this provider/department: Yes 12/15/2023 Requested Prescriptions Pending Prescriptions Disp Refills methylphenidate (RITALIN) 20 mg tablet 30 tablet 0 Sig: Take 1 tablet by mouth as needed for up to 30 days. Take at approx. 3-4 pm. amphetamine-dextroamphetamine XR (ADDERALL XR) 30 mg capsule 30 capsule 0 Sig: Take 1 capsule by mouth every morning for 30 days. Negin Recinos LPN December 10, 2023 3:24 PM documented in this [facility] Telephone encounter Note * Telephone Encounter - Negin Recinos LPN - 12/10/2023 3:23 PM EDT Prescription Refill Information The patient has been identified by name and date of : Yes Caregiver verified no other encounters exist for this prescription request: Yes Caregiver confirmed with patient/requestor that no other refills are due, in the near future, with this provider at this time: Yes The last office visit in the department: 09/16/2023 Does the patient have a future office visit with this provider/department: Yes 12/15/2023 Requested Prescriptions Pending Prescriptions Disp Refills methylphenidate (RITALIN) 20 mg tablet 30 tablet 0 Sig: Take 1 tablet by mouth as needed for up to 30 days. Take at approx. 3-4 pm. amphetamine-dextroamphetamine XR (ADDERALL XR) 30 mg capsule 30 capsule 0 Sig: Take 1 capsule by mouth every morning for 30 days. Negin Recinos LPN December 10, 2023 3:24 PM [facility] NoteHNO ID: [id number] Author: LUCAS SNIDER APRN.MERLIN Service: ? Author Type: Nurse Practitioner Type: Progress Notes Filed: 12/02/2023 12:23 Note Text: Patient came in with complaints of cold-like symptoms as well as pain in her right upper abdomen. Patient had a liver biopsy done about 2 weeks ago. Patient did not have any pain after but the pain has recently started for a few days now. Patient says it is an 8 out of 10. Patient says she cannot lay on that side. At this time I do not have imaging to rule out complications. Patient is being referred to the ER for full evaluation patient was okay with this and caregiver notes with patient will take her today.[facility]06-04-2024 History of Present illness Narrative* Lucas Snider APRN.[employer] - 12/02/2023 12:21 PM EDT Patient came in with complaints of cold-like symptoms as well as pain in her right upper abdomen. Patient had a liver biopsy done about 2 weeks ago. Patient did not have any pain after but the pain has recently started for a few days now. Patient says it is an 8 out of 10. Patient says she cannot lay on that side. At this time I do not have imaging to rule out complications. Patient is being referred to the ER for full evaluation patient was okay with this and caregiver notes with patient will take her today. documented in this encounterFair[facility]05-21-2024 History of Present illness Narrative* Gaurav Tavarez - 11/18/2023 11:01 AM EDT CMN RECEIVED BY [employer] VIA FAX, COMPLETED, AND PLACED IN PROVIDER MAILBOX FOR SIGNATURE Gaurav Tavarez 11/18/23 [facility] SENDING CMN: [place] SIGNED AND DATED CMN, FAXED TO DME & CONFIRMATION PAGE RECEIVED: 11/28/23 documented in this encounterFair[facility] Center05-17-2024 Telephone encounter Note * Telephone Encounter - Negin Recinos LPN - 11/14/2023 1:10 PM EDT Patient has been identified by name and date of : Yes, Patient phones for refill(s): Requested Prescriptions Pending Prescriptions Disp Refills methylphenidate (RITALIN) 20 mg tablet 30 tablet 0 Sig: Take 1 tablet by mouth as needed for up to 30 days. Take at approx. 3-4 pm. amphetamine-dextroamphetamine XR (ADDERALL XR) 30 mg capsule 30 capsule 0 Sig: Take 1 capsule by mouth every morning for 30 days. Date of last office visit in primary care: 09/16/2023 Date of next office visit in primary care: 12/15/2023 Please advise. Thank you. Negin Recinos LPN. [facility]05-17-2024 Miscellaneous Notes* Telephone Encounter - Negin Recinos LPN - 11/14/2023 1:10 PM EDT Patient has been identified by name and date of : Yes, Patient phones for refill(s): Requested Prescriptions Pending Prescriptions Disp Refills methylphenidate (RITALIN) 20 mg tablet 30 tablet 0 Sig: Take 1 tablet by mouth as needed for up to 30 days. Take at approx. 3-4 pm. amphetamine-dextroamphetamine XR (ADDERALL XR) 30 mg capsule 30 capsule 0 Sig: Take 1 capsule by mouth every morning for 30 days. Date of last office visit in primary care: 09/16/2023 Date of next office visit in primary care: 12/15/2023 Please advise. Thank you. Negin Recinos LPN. documented in this encounterFair[facility] Center05-14-2024 NoteHNO ID: [id number] Author: JOEL BAI RN Service: ? Author Type: Registered Nurse Type: Progress Notes Filed: 11/11/2023 16:29 Note Text: [facility] History of Present illness Narrative* Joel Bai RN - 11/11/2023 4:26 PM EDT CBC, INR ordered documented in this encounterFairfield [facility] Center04-24-2024 History of Present illness Narrative* Estrellita Molina PA-C - 10/22/2023 12:58 PM EDT CHIEF COMPLAINT: Patient presents with: Recheck: Fatty Liver, elevated liver enzymes, diarrhea HPI Katie Forde is a 22 year old female with PMHx pos for Marfan's, ADHD here today for Recheck (Fatty Liver, elevated liver enzymes, diarrhea ). Seen last by Zuleika Avalos PA-C for h/o NAFLD. Weight gain of 9 lbs since last OV. Has seen Dietitian in the past several years and did not feel as though they were too helpful. Includes she just got out of toxic relationship and thinks this may be contributing to weight gain. Pt noted intermittent diarrhea at that time, was advised to start daily probiotic and fiber powders. Fibers worsened gas. Bms are multiple per day, loose to watery, no blood. Fatty foods worsen symptoms. States she gets anxious going out due to concern for diarrhea flares.Taking OTC Pepto with some relief. Was previously taking Prilosec for several mos, ran out of script and interested in starting back on medication again. Denies NSAID usage, emesis. Celiac serology 2021 normal Smooth muscle ab positive 2021 RUQ US 03/2023 IMPRESSION: Normal sonographic appearance of the abdomen. Liver bx 2021 FINAL DIAGNOSIS A. Liver, biopsy: - Scant sampling of hepatic parenchyma with no diagnostic abnormality (see comment). HIDA 2021 Normal Current Outpatient Medications Medication Sig SUMAtriptan (IMITREX) 50 mg tablet Take 1 by mouth at onset of migraine. May repeat after 2 hours as needed topiramate (TOPAMAX) 50 mg tablet Take 1 tablet by mouth once daily. PARoxetine (PAXIL) 20 mg tablet Take 1 tablet by mouth once daily. methylphenidate (RITALIN) 20 mg tablet Take 1 tablet by mouth as needed for up to 30 days. Take at approx. 3-4 pm. Do not start before October 16, 2023. amphetamine-dextroamphetamine XR (ADDERALL XR) 30 mg capsule Take 1 capsule by mouth every morning for 30 days. Do not start before October 16, 2023. fluconazole (DIFLUCAN) 150 mg tablet Take 1 tablet today, then a 2nd tablet in 72 hours, and 3rd tablet in another 72 hours. medroxyPROGESTERone (PROVERA) 10 mg tablet Take 1 tablet by mouth once daily. CPAP/BIPAP/OTHER Type .CPAPSettings into a note to see current settings/supplies/DME information. [START ON 11/15/2023] methylphenidate (RITALIN) 20 mg tablet Take 1 tablet by mouth as needed for upto 30 days. Take at approx. 3-4 pm. Do not start before November 15, 2023. (Patient not taking: Reportedon 10/22/2023 Do not start before November 15, 2023.) [START ON 11/15/2023] amphetamine-dextroamphetamine XR (ADDERALL XR) 30 mg capsule Take 1 capsule bymouth every morning for 30 days. Do not start before November 15, 2023. (Patient not taking: Reported on10/22/2023 Do not start before November 15, 2023.) nicotine polacrilex (NICORETTE) 2 mg gum Take 1 Each by mouth every 2 hours as needed. (Patient nottaking: Reported on 10/22/2023) omeprazole (PRILOSEC) 20 mg capsule Take 1 capsule by mouth once daily. (Patient not taking: Reported on 10/22/2023) Current Facility-Administered Medications Medication Dose Route Frequency [...] cigarettes daily x 2 months, quit 2021 Pt vapes Vaping Use Vaping Use: current everyday user Substances: Nicotine, Flavoring Devices: Pre-filled or refillable cartridge Substance Use Topics Alcohol use: Yes Comment: occasional Drug use: No PAST MEDICAL [...] Other REVIEW OF SYSTEMS Review of Systems Constitutional: Positive for unexpected weight change. Respiratory: Positive for apnea and shortness of breath. Cardiovascular: Positive for palpitations. Gastrointestinal: Positive for diarrhea. Gas All other systems reviewed and are negative. PHYSICAL EXAM BP 132/84 Pulse 108 Ht 183 cm (6' 0.03) Wt (!) 142.8 kg (314 lb 14.4 oz) LMP 08/17/2023 (Exact Date) BMI 42.68 kg/m Physical Exam Constitutional: General: She is not in acute distress. Appearance: Normal appearance. She is obese. She is not ill-appearing, toxic- appearing or diaphoretic. HENT: Head: Normocephalic and atraumatic. Nose: Nose normal. Eyes: General: No scleral icterus. Right eye: No discharge. Left eye: No discharge. Extraocular Movements: Extraocular movements intact. Conjunctiva/sclera: Conjunctivae normal. Pupils: Pupils are equal, round, and reactive to light. Cardiovascular: Rate and Rhythm: Normal rate and regular rhythm. Pulses: Normal pulses. Heart sounds: Normal heart sounds. No murmur heard. No friction rub. No gallop. Pulmonary: Effort: No respiratory distress. Breath sounds: Normal breath sounds. No stridor. No wheezing, rhonchi or rales. Chest: Chest wall: No tenderness. Abdominal: General: Bowel sounds are normal. There is distension. Palpations: Abdomen is soft. There is no mass. Tenderness: There is no abdominal tenderness. There is no right CVA tenderness, left CVA tenderness, guarding or rebound. Hernia: No hernia is present. Musculoskeletal: General: Normal range of motion. Cervical back: Normal range of motion and neck supple. Skin: General: Skin is warm and dry. Neurological: General: No focal deficit present. Mental Status: She is alert and oriented to person, place, and time. Psychiatric: Mood and Affect: Mood normal. Behavior: Behavior normal. Assessment/Plan (K76.0) NAFLD (nonalcoholic fatty liver disease) (primary encounter diagnosis) (R19.7) Diarrhea, unspecified type (K21.9) Gastroesophageal reflux disease, unspecified whether esophagitis present 1. NAFLD (nonalcoholic fatty liver disease) - COMPREHENSIVE METABOLIC PANEL; Future - HEPATITIS B SURFACE ANTIBODY; Future - LIVER FIBROSIS AND ACTIVITY; Future - SMOOTH MUSCLE AB SCR; Future - Immune to Hep A, will check Hep B status - Recheck smooth muscle ab, fibrosure. Liver bx from 2021 was nonspecific may need repeat if indicated - Encouraged weight loss, aerobic exercise, Mediterranean diet. Offered referral to Dietitian, obesity medicine. Pt declined for now stating she would like to proceed with diarrhea workup first 2. Diarrhea, unspecified type - C. DIFFICILE PCR - EXPANDED STOOL GASTROINTESTINAL PANEL BY PCR - PANC ELASTASE, FECAL - CALPROTECTIN,FECAL - HELICOBACTER PYLORI ANTIGEN BY EIA, STOOL - Fibers, probiotics worsened sx/caused increased gas/bloating. Celiac 2021 was negative - Stool studies to r/o ID, EPI - Avoid antidiarrheals - If stool unremarkable, consider colonoscopy 3. Gastroesophageal reflux disease, unspecified whether esophagitis present - Was previously on Prilosec, will plan to refill script after stool submitted - Will likely need EGD to evaluate persistent GERD I spent a total of 22 minutes on the date of the service which included preparing to see the patient, [id number] patient care, completing clinical documentation, obtaining and/or reviewing separately obtained history, performing a medically appropriate examination, counseling and educating the pat ient/family/caregiver, ordering medications, tests, or procedures, communicating with other HCPs (not separately reported), independently interpreting results (not separately reported), communicatingresults to the patient/family/caregiver, and care coordination (not separately reported). Estrellita Molina PA-C October 22, 2023 1:16 PM documented in this encounterFair[facility]04-11-2024 History of Present illness Narrative* Aria Walden PA - 10/09/2023 11:48 AM EDT This note was created using [employer]itt[employer]. Subjective Katie Forde is a 22 year old female. HPI 22-year-old female presents for cough, sinus congestion, sinus pressure, sore throat, ear pain for 1 week. Patient states about a week ago she started getting sick with runny nose, cough and sorethroat. She states that she now has more sinus congestion/pressure, headaches. She states she has bilateral ear pain and pressure. She reports mild cough. No chest pain or shortness of breath. No history of COPD or asthma. She denies any fevers. No vomiting or diarrhea. Still able to eat and drink.She has not tried anything [id number] for her symptoms. Her mom was recently sick with flu and sinus infection. Her brother recently had strep. PAST MEDICAL HISTORY Diagnosis Date ADHD (attention [...] ALLERGIES Patient has no known allergies. MEDICATIONS SUMAtriptan (IMITREX) 50 mg tablet^Take 1 by mouth at onset of migraine. May repeat after 2 hours as needed^Disp: 9 tablet^Rfl: 2 topiramate (TOPAMAX) 50 mg tablet^Take 1 tablet by mouth once daily.^Disp: 30 tablet^Rfl: 2 PARoxetine (PAXIL) 20 mg tablet^Take 1 tablet by mouth once daily.^Disp: 30 tablet^Rfl: 5 methylphenidate (RITALIN) 20 mg tablet^Take 1 tablet by mouth as needed for up to 30 days. Take at approx. 3-4 pm.^Disp: 30 tablet^Rfl: 0 [START ON 10/16/2023] methylphenidate (RITALIN) 20 mg tablet^Take 1 tablet by mouth as needed for upto 30 days. Take at approx. 3-4 pm. Do not start before October 16, 2023.^Disp: 30 tablet^Rfl: 0 [START ON 11/15/2023] methylphenidate (RITALIN) 20 mg tablet^Take 1 tablet by mouth as needed for upto 30 days. Take at approx. 3-4 pm. Do not start before November 15, 2023.^Disp: 30 tablet^Rfl: 0 amphetamine-dextroamphetamine XR (ADDERALL XR) 30 mg capsule^Take 1 capsule by mouth every morning for 30 days.^Disp: 30 capsule^Rfl: 0 [START ON 10/16/2023] amphetamine-dextroamphetamine XR (ADDERALL XR) 30 mg capsule^Take 1 capsule bymouth every morning for 30 days. Do not start before October 16, 2023.^Disp: 30 capsule^Rfl: 0 [START ON 11/15/2023] amphetamine-dextroamphetamine XR (ADDERALL XR) 30 mg capsule^Take 1 capsule bymouth every morning for 30 days. Do not start before November 15, 2023.^Disp: 30 capsule^Rfl: 0 nicotine polacrilex (NICORETTE) 2 mg gum^Take 1 Each by mouth every 2 hours as needed.^Disp: 100 Each^Rfl: 1 fluconazole (DIFLUCAN) 150 mg tablet^Take 1 tablet today, then a 2nd tablet in 72 hours, and 3rd tablet in another 72 hours.^Disp: 3 tablet^Rfl: 0 medroxyPROGESTERone (PROVERA) 10 mg tablet^Take 1 tablet by mouth once daily.^Disp: 10 tablet^Rfl: 2 CPAP/BIPAP/OTHER^Type .CPAPSettings into a note to see current settings/supplies/DME information.^Disp: 1 Each^Rfl: 0 omeprazole (PRILOSEC) 20 mg capsule^Take 1 capsule by mouth once daily.^Disp: 30 capsule^Rfl: 11 amphetamine-dextroamphetamine XR (ADDERALL XR) 30 mg capsule^Take 1 capsule by mouth every morning for 30 days. Do not start before August 17, 2023.^Disp: 30 capsule^Rfl: 0 FAMILY HISTORY Problem Relation Age [...] cigarettes daily x 2 months, quit 2021 Pt vapes Vaping Use Vaping Use: current everyday user Substances: Nicotine, Flavoring Devices: Pre-filled or refillable cartridge Substance Use Topics Alcohol use: Not Currently Comment: occasional Drug use: No Review of Systems Constitutional: Negative for chills and fever. HENT: Positive for congestion, ear pain, sinus pressure, sinus pain and sore throat. Respiratory: Positive for cough. Negative for shortness of breath. Cardiovascular: Negative for chest pain. Gastrointestinal: Negative for diarrhea and vomiting. Neurological: Positive for headaches. Objective BP 133/83 Pulse 105 Temp 36.8 C (98.2 F) Resp 22 Wt (!) 143 kg (315 lb 4.1 oz) LMP 08/17/2023 (Exact Date) SpO2 97% BMI 42.47 kg/m Physical Exam Vitals and nursing note reviewed. Constitutional: General: She is not in acute distress. Appearance: Normal appearance. She is not toxic-appearing. HENT: Right Ear: Tympanic membrane and ear canal normal. Left Ear: Tympanic membrane and ear canal normal. Nose: Mucosal edema and congestion present. Right Sinus: Frontal sinus tenderness present. No maxillary sinus tenderness. Left Sinus: Frontal sinus tenderness present. No maxillary sinus tenderness. Mouth/Throat: Mouth: Mucous membranes are moist. Pharynx: Uvula midline. Posterior oropharyngeal erythema present. No oropharyngeal exudate. Tonsils: No tonsillar exudate. 1+ on the right. 1+ on the left. Eyes: Conjunctiva/sclera: Conjunctivae normal. Cardiovascular: Rate and Rhythm: Normal rate and regular rhythm. Pulmonary: Effort: Pulmonary effort is normal. Breath sounds: Normal breath sounds. Neurological: Mental Status: She is alert. Assessment and Plan ASSESSMENT/PLAN: 1. Sore throat - ICD9: 462, ICD10: J02.9 (primary diagnosis) - suspect viral - Group A strep molecular testing negative - Discussed supportive care treatment with fluids, rest and analgesia. - The patient may also use warm salt water gargles, throat lozenges and/or OTC throat spray as needed. - STREP A MOLECULAR (POC) 2. Bacterial sinusitis - ICD9: 473.9, 041.9, ICD10: J32.9, B96.89 - Will begin treatment with Augmentin 875 mg PO BID for 7 days - The patient should also be given OTC decongestants prn for the first 5-7 days of treatment. - Supportive care with plenty of fluids, rest, and analgesia prn. Diagnosis and treatment plan were discussed and questions were answered to the patient's satisfaction. Pt acknowledged understanding of concepts and follow up plan. Specific signs and symptoms that would indicate the need for higher level of care were discussed in detail warranting prompt ER evaluation. ADITYA Swann documented in this encounterFair[facility] Center03-19-2024 History of Present illness Narrative* Kate Silva MD - 09/16/2023 11:52 AM EDT This note was created using [employer]. Subjective Katie Forde is a 22 year old female. Patient presents with: Follow Up SUBJECTIVE: Katie Forde is a 22 year old year old lady here today for follow up appointment for review of medical conditions. Chief complaint - The patient has requested a change in migraine medication due to the ineffectiveness of the current medication (Topamax). - The patient has requested a refill of depression medication. - The patient has expressed a desire to quit vaping. History of present illness - The patient has been experiencing worsening migraines, up to three times a week. - The migraines are severe enough to cause nausea and require the patient to lie down. - Topamax was not effective in preventing migraines and was stopped a month ago. - The patient's migraines worsened after stopping Topamax. - The patient has found Imitrex, taken from her brother, to be effective in relieving migraines. - The patient's migraines seem to be triggered by sleeping on different pillows. - The patient is also trying to quit vaping. Past medical history The patient has a history of depression and migraines. Family history - The patient's brother also suffers from migraines and takes Imitrex. - The patient's mother has chronic migraines and receives Botox injections. Social history - The patient has a vaping habit and is trying to quit. - The patient uses a refillable vape device and refills it three times a day. Current medications - The patient was taking Topamax for migraines but stopped a month ago. - The patient is on unspecified depression medication. - The patient is taking Ritalin and Adderall for ADHD. PAST MEDICAL HISTORY Diagnosis Date ADHD (attention deficit hyperactivity disorder) Fatty liver GERD (gastroesophageal reflux disease) Marfan's syndrome VIRAL WARTS NOS 06/25/2008 resolved Current Outpatient Medications Medication Sig fluconazole (DIFLUCAN) 150 mg tablet Take 1 tablet today, then a 2nd tablet in 72 hours, and 3rd tablet in another 72 hours. medroxyPROGESTERone (PROVERA) 10 mg tablet Take 1 tablet by mouth once daily. PARoxetine (PAXIL) 20 mg tablet Take 1 tablet by mouth once daily. methylphenidate (RITALIN) 20 mg tablet Take 1 tablet by mouth as needed for up to 30 days. Take at approx. 3-4 pm. Do not start before August 17, 2023. amphetamine-dextroamphetamine XR (ADDERALL XR) 30 mg capsule Take 1 capsule by mouth every morning for 30 days. Do not start before August 17, 2023. CPAP/BIPAP/OTHER Type .CPAPSettings into a note to see current settings/supplies/DME information. omeprazole (PRILOSEC) 20 mg capsule Take 1 capsule by mouth once daily. methylphenidate (RITALIN) 20 mg tablet Take 1 tablet by mouth as needed for up to 30 days. Take at approx. 3-4 pm. Do not start before June 18, 2023. amphetamine-dextroamphetamine XR (ADDERALL XR) 30 mg capsule Take 1 capsule by mouth every morning for 30 days. Do not start before June 18, 2023. methylphenidate (RITALIN) 20 mg tablet Take 1 tablet by mouth as needed for up to 30 days. Take at approx. 3-4 pm. Do not start before July 18, 2023. amphetamine-dextroamphetamine XR (ADDERALL XR) 30 mg capsule Take 1 capsule by mouth every morning for 30 days. Do not start before July 18, 2023. Current Facility-Administered Medications Medication Dose Route Frequency perflutren lipid microspheres 1.3 mL in NaCl (PF) 0.9% 10 mL injection (DEFINITY) INTRAVENOUS DIRECTED PRN sodium chloride 0.9 % (flush) 10 mL (BD POSIFLUSH) 10 mL INTRAVENOUS DIRECTED PRN Review of Systems Objective BP 102/66 Pulse 91 Ht 183.5 cm (6' 0.24) Wt (!) 141.5 kg (312 lb) LMP 07/17/2023 (Exact Date) SpO2 98% BMI 42.03 kg/m Physical Exam Assessment and Plan Encounter Diagnosis ICD-10-CM 1. Migraine without status migrainosus, not intractable, unspecified migraine type G43.909 SUMAtriptan (IMITREX) 50 mg tablet topiramate (TOPAMAX) 50 mg tablet 2. Attention deficit hyperactivity disorder (ADHD), combined type F90.2 methylphenidate (RITALIN) 20 mg tablet methylphenidate (RITALIN) 20 mg tablet methylphenidate (RITALIN) 20 mg tablet amphetamine-dextroamphetamine XR (ADDERALL XR) 30 mg capsule amphetamine-dextroamphetamine XR (ADDERALL XR) 30 mg capsule amphetamine-dextroamphetamine XR (ADDERALL XR) 30 mg capsule 3. Vaping nicotine dependence, non-tobacco product F17.200 nicotine polacrilex (NICORETTE) 2 mg gum 4. Recurrent major depressive disorder, in partial remission (HCC) F33.41 PARoxetine (PAXIL) 20 mg tablet Assessment - The patient has chronic migraines. - The patient has depression. - The patient has ADHD. - The patient has nicotine dependence. Plan - The plan could be to resume Topamax since migraines worsened off of it; titrate dose as toleratedas needed. Imitrex for acute migraine management. - If Imitrex alone is not effective to break cycle of migraines, she will consider reintroducing Topamax. - We will refill the patient's depression medication. - We will attempt to sync the patient's Ritalin and Adderall prescriptions. - We will consider nicotine replacement therapy for the patient's attempt to quit vaping. - If the patient's migraines continue to worsen, we may refer her to a pain management nurse practitioner who could do Botox injections in [place] so would not have to travel far out of [place] for treatment. - We will monitor the patient's progress in quitting vaping and provide support as needed. Prescription - The patient will be prescribed Imitrex for migraines. Topamax also filled to resume as discussed. - The patient's depression medication will be refilled. - The patient will continue to take Ritalin and Adderall for ADHD. - The patient will be prescribed nicotine gum to aid in quitting vaping. Note drafted by [facility]. Note reviewed, edited, and signed by the visit provider. documented in this encounter[facility]03-14-2024 Instructions* Patient Instructions* Pat Ferrer APRN.CNP - 09/11/2023 10:23 AM EDT Boric acid suppositories use 1 nightly for 14 nights, then 1 weekly during Diflucan treatment. documented in this encounterFair[facility] Center03-14-2024 History of Present illness Narrative* Pat Ferrer APRN.CNP - 09/11/2023 9:59 AM EDT Katie Forde is a 22 year old female who presents for problem visit vaginal irritation . HPI: Patient was recently treated for yeast infection with Diflucan and did a Monistat 3-day treatment but is still complaining of vaginal itching and irritation. She has had chronic yeast infectionsfor the past year and multiple treatments with Diflucan and enih-xds-rqaxdih's. 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 methylphenidate (RITALIN) 20 mg tablet Take 1 tablet by mouth as needed for up to 30 days. Take at approx. 3-4 pm. Do not start before June 18, 2023. amphetamine-dextroamphetamine XR (ADDERALL XR) 30 mg capsule Take 1 capsule by mouth every morning for 30 days. Do not start before June 18, 2023. methylphenidate (RITALIN) 20 mg tablet Take 1 tablet by mouth as needed for up to 30 days. Take at approx. 3-4 pm. Do not start before July 18, 2023. methylphenidate (RITALIN) 20 mg tablet Take 1 tablet by mouth as needed for up to 30 days. Take at approx. 3-4 pm. Do not start before August 17, 2023. amphetamine-dextroamphetamine XR (ADDERALL XR) 30 mg capsule Take 1 capsule by mouth every morning for 30 days. Do not start before July 18, 2023. amphetamine-dextroamphetamine XR (ADDERALL XR) 30 mg capsule Take 1 capsule by mouth every morning for 30 days. Do not start before August 17, 2023. CPAP/BIPAP/OTHER Type .CPAPSettings into a note to see current settings/supplies/DME information. topiramate (TOPAMAX) 50 mg tablet Take 1 tablet by mouth once daily. omeprazole (PRILOSEC) 20 mg capsule Take 1 capsule by mouth once daily. Current Facility-Administered Medications Medication Dose Route Frequency perflutren lipid microspheres 1.3 mL in NaCl (PF) 0.9% 10 mL injection (DEFINITY) INTRAVENOUS DIRECTED PRN sodium chloride 0.9 % (flush) 10 mL (BD POSIFLUSH) 10 mL INTRAVENOUS DIRECTED PRN Allergies As of Date: 09/11/2023 (No Known Allergies) Fully Assessed 08/18/2023 REVIEW OF SYSTEMS Expanded ROS: N/A Allergies and current medication updated:Yes EXAM: LMP 07/17/2023 GENERAL: pleasant, female in no apparent distress HEENT: Normocephalic, atraumatic, mucus membranes moist, and no lesions CHEST: Normal inspiratory effort PELVIC: external genitalia normal, normal Bartholin's glands, urethra, So-Hi's glands, no vulvar lesions, no cervical lesions, good vaginal support, physiologic discharge present, normal appearing perineal body and perianal region NEURO: alert and oriented x3,exam grossly non-focal EXTREMITIES: normal ASSESSMENT/PLAN: 1. Vaginal discharge - ICD9: 623.5, ICD10: N89.8 (primary diagnosis) - YEIMY/TRICHOMONAS NAAT - BACTERIAL VAGINOSIS NAAT 2. Vaginal itching - ICD9: 698.1, ICD10: N89.8 - YEIMY/TRICHOMONAS NAAT - BACTERIAL VAGINOSIS NAAT Will notify patient of test results. Long-term Diflucan treatment ordered along with recommending boric acid vaginal suppositories x 14 nights and then weekly. Also recommended using boric acid vaginal suppositories after every active intercourse to maintain pH balance. Pat Ferrer APRN.ELECTRIC STOVE MECHANIC Medical Decision Making: Problems: Moderate: 1+ chronic illnesses with change Data: Unique test(s) ordered: 2 Risk: Moderate: Drug management Medical Decision Making Level: 4 - Moderate documented in this encounterFair[facility] Center02-19-2024 History of Present illness Narrative* Los Barber APRN.CNP - 08/18/2023 12:29 PM EST SUBJECTIVE: Katie Forde is a 22 year old female. Who presents today with headache, sore throat +n cough and congestion since Friday. She has been exposed to covid. She has not had a fever. She has taken over the counter cold ad flu medication. She would like viral testing today. HPI PAST MEDICAL HISTORY Diagnosis Date ADHD (attention deficit hyperactivity disorder) Fatty liver GERD (gastroesophageal reflux disease) Marfan's syndrome VIRAL WARTS NOS 06/25/2008 resolved FAMILY HISTORY Problem Relation Age of Onset [...] cigarettes daily x 2 months, quit 2021 Pt vapes Vaping Use Vaping Use: current everyday user Substances: Nicotine, Flavoring Devices: Pre-filled or refillable cartridge Substance Use Topics Alcohol use: Not Currently Comment: occasional Drug use: No ALLERGIES No Known Allergies Current Outpatient Medications Medication Sig Dispense Refill PARoxetine (PAXIL) 20 mg tablet Take 1 tablet by mouth once daily. 30 tablet 5 methylphenidate (RITALIN) 20 mg tablet Take 1 tablet by mouth as needed for up to 30 days. Take at approx. 3-4 pm. Do not start before August 17, 2023. 30 tablet 0 amphetamine-dextroamphetamine XR (ADDERALL XR) 30 mg capsule Take 1 capsule by mouth every morning for 30 days. Do not start before August 17, 2023. 30 capsule 0 CPAP/BIPAP/OTHER Type .CPAPSettings into a note to see current settings/supplies/DME information. 1Each 0 topiramate (TOPAMAX) 50 mg tablet Take 1 tablet by mouth once daily. 30 tablet 11 omeprazole (PRILOSEC) 20 mg capsule Take 1 capsule by mouth once daily. 30 capsule 11 methylphenidate (RITALIN) 20 mg tablet Take 1 tablet by mouth as needed for up to 30 days. Take at approx. 3-4 pm. Do not start before June 18, 2023. 30 tablet 0 amphetamine-dextroamphetamine XR (ADDERALL XR) 30 mg capsule Take 1 capsule by mouth every morning for 30 days. Do not start before June 18, 2023. 30 capsule 0 methylphenidate (RITALIN) 20 mg tablet Take 1 tablet by mouth as needed for up to 30 days. Take at approx. 3-4 pm. Do not start before July 18, 2023. 30 tablet 0 amphetamine-dextroamphetamine XR (ADDERALL XR) 30 mg capsule Take 1 capsule by mouth every morning for 30 days. Do not start before July 18, 2023. 30 capsule 0 Current Facility-Administered Medications Medication Dose Route Frequency Provider Last Rate Last Admin perflutren lipid microspheres 1.3 mL in NaCl (PF) 0.9% 10 mL injection (DEFINITY) INTRAVENOUS DIRECTED PRN Santi Mcallister MD sodium chloride 0.9 % (flush) 10 mL (BD POSIFLUSH) 10 mL INTRAVENOUS DIRECTED PRN Santi Mcallister MD OBJECTIVE: BP 110/80 Pulse 115 Temp 37 C (98.6 F) Resp 21 Wt (!) 140.8 kg (310 lb 6.4 oz) LMP 07/17/2023 (Exact Date) SpO2 98% BMI 41.81 kg/m ROS: All systems reviewed and are otherwise negative Constitutional: Well developed, well nourished, A&O X3. ENT: Head is atraumatic, airway patent, mucosal membranes moist bilateral tympanic membranes clear with no redness or infection noted Neck: full ROM, no meningeal signs Cardiac: heart tones regular rate and rhythm Respiratory: lung CTA : no CVA tenderness MS: moves all extremities, no deformities noted Neuro: GCS 15 no focal deficits Skin: warm and dry with out rash, lesion or ecchymosis on exposed skin Psych: alert appropriate, speech clear Differential Diagnosis includes bacterial pneumonia, sinusitis, allergic rhinitis, and bronchitis, pneumothorax, COVID, Influenza, and RSV Diagnostic testing: COVID, Influenza A, Influenza B and RSV testing performed and results will be complete in the next 24-72 hours. The patient will be notified of the results in My Chart. MDM: Patient presented to the [facility] for viral testing. Katie Forde has symptoms suspicious forlikely viral upper respiratory infection. At this time I do not suspect a serious underlying cardiopulmonary process. Patient is nontoxic appearing. Currently they are not in need of emergent medicalintervention. Vital signs were evaluated and found to be within normal limits. We discussed the COVI D, Influenza and RSV results will be back in My Chart in the next 1-2 days. In accordance with the CDC guidelines, Katie Forde was instructed to quarantine, if indicated, based on symptoms and exposure. We have discussed over the counter medications to use for their symptoms. They may take Motrin and Tylenol for pain, body aches and fever. They will also increase fluids for adequate hydration. They will follow-up with their family doctor in the next 2-3 days. If symptoms worsen they will go straight to the emergency department for further evaluation and treatment. The patient and/or familymembers have voiced understanding of the plan of care and are in agreement. ASSESSMENT/PLAN: 1. Exposure to SARS-associated coronavirus - ICD9: V01.82, ICD10: Z20.828 - COVID & INFLUENZA A/B & RSV NAAT, ROUTINE Los Barber APRN.ELECTRIC STOVE MECHANIC documented in this encounterFairfield [facility] Center02-14-2024 Miscellaneous Notes* Telephone Encounter - Woody Palafox RN - 08/13/2023 2:28 PM EST AT sent patient a message that he was sending her fluconazole but he routed the unsigned order to our pool. I don't see that he did send anything. Requested Prescriptions Pending Prescriptions Disp Refills fluconazole (DIFLUCAN) 150 mg tablet 1 tablet 0 Sig: Take 1 tablet by mouth one time only for 1 dose. WOODY PALAFOX RN documented in this encounterFairfield Medical Center02-12-2024 Miscellaneous Notes* Addendum Note - Eboni Hardin - 08/11/2023 4:06 PM ESTAddended by: EBONI HARDIN on: 08/11/2023 04:06 PM Modules accepted: Orders documented in this encounterFairfield Medical Center02-12-2024 History of Present illness Narrative* Los Barber APRN.MERLIN - 08/11/2023 12:16 PM EST SUBJECTIVE: Katie Forde is a 22 year old female. Who presents today with pain in R hand after hitting a wallover and over until her hand was swollen and bruised. This happened 3 weeks ago. She went to the ERand had xrays done that were negative for a fracture. She still has pain in the hand. She is right handed. She has not been taking any medications for the pain. She states that the swelling in the hand has decreased and the bruising is gone. HPI PAST MEDICAL HISTORY Diagnosis Date ADHD (attention deficit hyperactivity disorder) Fatty liver GERD (gastroesophageal reflux disease) Marfan's syndrome VIRAL WARTS NOS 06/25/2008 resolved FAMILY HISTORY Problem Relation Age of Onset [...] cigarettes daily x 2 months, quit 2021 Pt vapes Vaping Use Vaping Use: current everyday user Substances: Nicotine, Flavoring Devices: Pre-filled or refillable cartridge Substance Use Topics Alcohol use: Not Currently Comment: occasional Drug use: No ALLERGIES No Known Allergies Current Outpatient Medications Medication Sig Dispense Refill PARoxetine (PAXIL) 20 mg tablet Take 1 tablet by mouth once daily. 30 tablet 5 methylphenidate (RITALIN) 20 mg tablet Take 1 tablet by mouth as needed for up to 30 days. Take at approx. 3-4 pm. Do not start before July 18, 2023. 30 tablet 0 [START ON 08/17/2023] methylphenidate (RITALIN) 20 mg tablet Take 1 tablet by mouth as needed for upto 30 days. Take at approx. 3-4 pm. Do not start before August 17, 2023. 30 tablet 0 amphetamine-dextroamphetamine XR (ADDERALL XR) 30 mg capsule Take 1 capsule by mouth every morning for 30 days. Do not start before July 18, 2023. 30 capsule 0 [START ON 08/17/2023] amphetamine-dextroamphetamine XR (ADDERALL XR) 30 mg capsule Take 1 capsule bymouth every morning for 30 days. Do not start before August 17, 2023. 30 capsule 0 CPAP/BIPAP/OTHER Type .CPAPSettings into a note to see current settings/supplies/DME information. 1Each 0 topiramate (TOPAMAX) 50 mg tablet Take 1 tablet by mouth once daily. 30 tablet 11 omeprazole (PRILOSEC) 20 mg capsule Take 1 capsule by mouth once daily. 30 capsule 11 methylphenidate (RITALIN) 20 mg tablet Take 1 tablet by mouth as needed for up to 30 days. Take at approx. 3-4 pm. Do not start before June 18, 2023. 30 tablet 0 amphetamine-dextroamphetamine XR (ADDERALL XR) 30 mg capsule Take 1 capsule by mouth every morning for 30 days. Do not start before June 18, 2023. 30 capsule 0 Current Facility-Administered Medications Medication Dose Route Frequency Provider Last Rate Last Admin perflutren lipid microspheres 1.3 mL in NaCl (PF) 0.9% 10 mL injection (DEFINITY) INTRAVENOUS DIRECTED PRSanti Torres MD sodium chloride 0.9 % (flush) 10 mL (BD POSIFLUSH) 10 mL INTRAVENOUS DIRECTED Santi James MD OBJECTIVE: BP 110/80 Pulse 88 Temp 36.6 C (97.8 F) Resp 21 Wt (!) 140.7 kg (310 lb 3.2 oz) LMP 07/17/2023 (Exact Date) SpO2 97% BMI 41.79 kg/m ROS all other systems reviewed and are negative Physical Exam Constitutional: Well developed, well nourished, NAD, A&O X3. ENT: Head is atraumatic, airway patent, mucosal membranes moist. Respiratory: Respirations unlabored : no CVA tenderness MS: no swelling, tenderness or deformity in upper or lower extremities, no midline tenderness in cervical, thoracic or lumbar spine. Full range of motion of each finger of the hand swelling is noted at the MCP joint of the third finger with no bruising slight tenderness is noted on palpation with no obvious deformity cap refills brisk sensation is intact pulses are +2 the extremity is warm strength is 5 out of 5 at each finger of the each joint no pain on palpation of the wrist full range of motion of the wrist Neuro: strength sensation and coordination intact. CN II-XII grossly intact, Skin: warm and dry with out rash, lesion or ecchymosis on exposed skin Psych: alert appropriate, speech clear It was a pleasure to take care of Katie Forde today. I have offered the patient a repeat x-ray of her hand. We have reviewed the x-ray results that she had 3 weeks ago. She has declined an x-ray at this time. I encouraged her to take Motrin and Tylenol for any pain or discomfort she may also useice to help with some of the swelling. Patient is requesting an Tone wrap for comfort and this was given. I did discuss with the patient that injuries of this type may take 6 to 8 weeks to fully heal especially given that she is right-handed and uses her hands frequently. Patient has verbalized understanding of plan of care and is agreeable Patient will follow up with family physician. They may return to the Urgent Care or go to the ER for worsening symptoms or concerns. Patient verbalized understanding of plan of care and is in agreement. ASSESSMENT/PLAN: 1. Contusion of right hand, subsequent encounter - ICD9: V58.89, 923.20, ICD10: S60.221D Los Barber APRN.ELECTRIC STOVE MECHANIC documented in this encounterFairfield Medical Center02-12-2024 History of Present illness Narrative* Nicolle Hopson MD - 08/11/2023 10:48 AM EST Senior Sql Server Developer offered: Patient accepts, visit chaperoned by Zohreh Dumont LPN. Katie Forde is a 22 year old female who presents for evaluation of vaginal odor of 2-3 mo duration worse with sex. Oxcc pain with intercourse. for . Vaginal discharge: thin, clear, mucous, and noting slight odor. Itching: YES Dyspareunia: YES Fever/chills: No Abdominal pain: No Bladder: dysuria, frequency, urgency Bowel: No blood in stool, pain with BM, tarry stool, persistent diarrhea or constipation Any new sexual partners or concern for STD exposure: No Any history of STDs: None Does your partner have any new complaints: No Are you currently taking any medications to treat vaginitis: No Do you use feminine sprays, douches or deodorants: No Menstrual cycle: cycles every 28 days and 6-7 days of flow Contraception: withdrawal Last pap: uncertain, Past medical, surgical, social history, medications and allergies reviewed and updated. OBJECTIVE: Wt 310 lb 9.6 oz (140.9kg) LMP 07/17/2023 GENERAL: Well developed, well nourished, Obese in no apparent distress ABDOMEN: Benign, soft, non-tender, and no masses PELVIC: external genitalia normal, normal Bartholin's glands, urethra, So-Hi's glands, no vulvar lesions, no cervical lesions, good vaginal support, physiologic discharge present, normal appearing perineal body and perianal region BIMANUAL: uterus normal size, shape and consistency, no adnexal masses, non- tender, and noting scant discharg with mild odor. RECTOVAGINAL: deferred. ASSESSMENT/PLAN: Urinary sx - ua pending Vaginal and STI cultures pending No orders found for this visit on 08/11/23. STD screening: Accepted STD check for Gonorrhea and Chlamydia. Any new medications given to the patient have been explained as to directions, reasons for prescribing and side effects. Perineal hygiene and safe sex were discussed with the patient. Nicolle Hopson MD documented in this encounterFairfield Medical Center01-17-2024 History of Present illness Narrative* Gopal Yanez MD - 07/16/2023 3:31 PM EST Phone visit. Reviewed labs, leukocytosis and thrombocytosis, stable, mild. She has no fevers, evidence infection. Sed rate also elevated. Impression is mild chronic leukocytosis, thrombocytosis, prior work up not suggestive of myeloproliferative process. Plan recheck labs 8 months. 20 minutes in call prep and documentation. Gopal Yanez MD July 16, 2023 documented in this encounterFairfield Medical Center12-08-2023 Instructions* Patient Instructions* Kate Silva MD - 06/06/2023 4:29 PM EST Start Paxil (paroxetine) at half pill daily for 1 to 2 weeks then increase to whole tablet as needed as tolerated. If after 1 month the 20 mg is not adequate, we can increase dose to either 30 or 40 mg daily. documented in this encounterFairfield Medical Center12-08-2023 History of Present illness Narrative* Kate Silva MD - 06/06/2023 4:20 PM EST This note was created using [employer]ver[employer]. Subjective Katie Forde is a 22 year [...] Take 1 tablet by mouth once daily. (Patientnot taking: Reported on 06/06/2023) medroxyPROGESTERone (PROVERA) 10 [...] for suicidal ideas. The patient is nervous/anxious (Wasbetterr when treatd for depression) and is hyperactive (Treated by speaking unit assembler; current meds effect victorino). Objective BP 112/ Pulse 108 Temp 36.4 C (97.5 F) Resp 18 Ht 183.5 cm (6' 0.24) Wt (!) 138.3 kg (305 lb) LMP [...] as of this encounter: 183.5 cm (6' 0.24). Weight as of this encounter: 138.3 kg [...] management. Kate Silva MD documented in this encounterFairfield Medical Center11-20-2023 Miscellaneous Notes* Telephone Encounter - Kate Silva MD - 05/19/2023 7:27 PM EST The following approved medication requests have been [...] 3-4 pm. Authorizing Provider: KATE SILVA MD * Telephone Encounter - Cookie Scales OCCA - 05/19/2023 9:09 AM EST Patient has been identified by name and [...] Thank you. NARA Rooney. documented in this encounterFairfield Medical Center11-16-2023 Miscellaneous Notes* Telephone Encounter - Rebeca Russell APRN.MERLIN - 05/15/2023 10:39 AM EST Spoke with patient. Offered vaginal suppository. Declines. Will proceed with x 1 Diflucan that was called in. Discussed PROS/CONS of medicines. Encouraged patient to follow up with [facility] * Telephone Encounter - Janny Montoya LPN - 05/15/2023 10:32 AM EST Spoke with pt and information listed below [...] above. Please advised pt. Janny Montoya LPN * Telephone Encounter - Farida Richardson MA - 05/15/2023 10:25 AM EST Left message for pt to call back. Farida Richardson MA * Telephone Encounter - Yared Servin APRN.MERLIN - 05/15/2023 7:12 AM EST Please notify that only positive on lab was yeast, diflucan sent to pharmacy. F/u with pcp or ob ifs/s persist. documented in this encounterFairfield Medical Center11-15-2023 History of Present illness Narrative* Lucas Snider APRN.MERLIN - 05/14/2023 11:48 AM EST CC: Patient presents with: Vaginal Problem: Irritation [...] symmetric Physical Exam Exam conducted with a restaurant lead present. Constitutional: Appearance: Normal appearance. Pulmonary: Effort: [...] tab^Take 1 tablet by mouth once daily.^Disp: 30tablet^Rfl: 12 [START ON 05/15/2023] amphetamine-dextroamphetamine XR (ADDERALL [...] symptoms occur. Patient agreeable to treatment plan. Lucas Snider APRN.ELECTRIC STOVE MECHANIC documented in this encounterFairfield Medical Center10-30-2023 History of Present illness Narrative* Rebeca Chinchilla RDMS - 04/28/2023 11:30 AM EDT Radiology Service Progress Note PATIENT NAME: Katie Forde DATE OF SERVICE: April 28, 2023 TIME: 1:58 PM PATIENT IDENTITY VERIFICATION COMPLETED USING TWO (2) IDENTIFIERS: Name and Date of confirmedby patient verbally. FALL SCREENING: Has the patient [...] 28, 2023 1:58 PM documented in this encounterFairfield Medical Center10-24-2023 Instructions* Patient Instructions* Zuleika Avalos PA-C - 04/22/2023 10:26 AM EDT - Start over there counter probiotic with at least 15 billion live cultures, 10+ strains - Drink around 64 oz water daily - Benefiber daily: 2 teaspoons added to 8 ounces of water up to 3 times daily. documented in this encounterFairfield Medical Center10-24-2023 History of Present illness Narrative* Zuleika Avalos PA-C - 04/22/2023 10:10 AM EDT CHIEF COMPLAINT: Patient presents with: Recheck: Fatty [...] which included preparing to see the patient, [id number] patient care, completing clinical documentation, obtaining and/or reviewing separately obtained history, performing a medically appropriate examination, counseling and educating the pat ient/family/caregiver, and ordering medications, tests, or procedures. Zuleika Avalos PA-C April 22, 2023 10:29 AM documented in this encounterFairfield Medical Center10-19-2023 History of Present illness Narrative* Rebeca Chinchilla RDMS - 04/17/2023 11:30 AM EDT Radiology Service Progress Note PATIENT NAME: Katie Forde DATE OF SERVICE: April 17, 2023 TIME: 2:18 PM PATIENT IDENTITY VERIFICATION COMPLETED USING TWO (2) IDENTIFIERS: Name and Date of confirmedby patient verbally. FALL SCREENING: Has the patient [...] 17, 2023 2:18 PM documented in this encounterFairfield Medical Center10-18-2023 Miscellaneous Notes* Telephone Encounter - Fernanda Galindo LPN - 04/16/2023 8:19 AM EDT Left message of same below on pt's vm. Fernanda Galindo LPN * Telephone Encounter - Kate Silva MD - 04/15/2023 8:58 PM EDT Was supposed to have 3 month follow [...] 15, 2023. Authorizing Provider: KATE SILVA MD * Telephone Encounter - Cookie Scales OCCA - 04/15/2023 12:37 PM EDT Patient has been identified by name and [...] Thank you. NARA Rooney. documented in this encounterFairfield Medical Center10-11-2023 History of Present illness Narrative* Kelly Nunez APRN.CNM - 04/09/2023 1:33 PM EDT Katie Forde is a 22 year old female who presents for problem visit of missed period. She reportstaking Provera every month to induce period which usually works. Stated LMP was 01/12/23-01/17/23. She took Provera in January and February and did not have any break through bleeding. She did not takeProvera this month. Has not taken a test. Concerned over increased weight gain as well. De nies any recent changes in health or medications. 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 Do not start before February 08, 2023. amphetamine-dextroamphetamine XR (ADDERALL XR) 30 mg biphasic capsule Take 1 capsule by mouth everymorning for 30 days. Do not start before March 10, 2023. amphetamine-dextroamphetamine XR (ADDERALL XR) 30 mg biphasic capsule Take 1 capsule by mouth everymorning for 30 days. Do not start before [...] care Kelly Nunez APRN.CNM [facility] Instructions* Patient Instructions* Keeley Severino APRN.CNP - 03/20/2023 11:28 AM EDT Amoxicillin [...] on the other side. documented in this [facility] History of Present illness Narrative* Keeley Severino APRN.CNP - 03/20/2023 11:20 AM EDT Subjective The history is provided by the patient and a friend. No sales process manager was used. HPI Katie Forde is a [...] have confirmed and edited as necessary, the [facility] Review of Systems Constitutional: Negative for [...] Supportive care with fluids and rest - helio rg tesslon perls 2. Non-recurrent acute serous otitis [...] for higher level of care were discussed indetail warranting prompt ER evaluation. Keeley Severino APRN.ELECTRIC STOVE MECHANIC' documented in this [facility]-2023 Miscellaneous Notes* Telephone Encounter - Roseanna Dumont LPN - 03/18/2023 4:05 PM EDT Pt scheduled for 04/09/23 at 1:30 with CP. Roseanna Dumont LPN * Telephone Encounter - Suyapa Recinos MD - 03/18/2023 12:41 PM EDT Needs appointment, doesn't have to be w/ me. Suyapa Recinos MD * Telephone Encounter - Roseanna Dumont LPN - 03/17/2023 11:48 AM EDT Please see pt's mychart message and further advise. Pt is aware that you are out of the office until 03/18/23. Roseanna Dumont LPN documented in this [facility]-2023 Miscellaneous Notes* Telephone Encounter - Karen Urias LPN - 03/11/2023 11:43 AM EDT Patient has been identified by name and [...] you. Karen Urias LPN documented in this [facility]Fair[facility]09-[facility]-2023 Miscellaneous Notes* Telephone Encounter - Karen Urias LPN - 03/11/2023 11:41 AM EDT Patient has been identified by name and [...] you. Karen Urias LPN documented in this encounterFair[facility]08-29-2023 Instructions* Patient Instructions* Hailey Jett MD - 02/25/2023 2:02 PM EDT ESTEBAN: -Increase from 5-10 cm H2O to 5-15 cmH2O. - Remember to clean your mask and equipment regularly, as directed. - You should be eligible for new supplies approximately every 3-6 months, depending on your insurance coverage. Contact your Durable Medical Equipment (DME) company for new supplies as needed. - Follow up in 2-3 months with Hailey Jett MD or my associates. [facility] REQUIREMENTS: - Your insurance requires a [id number] follow up visit within a 31-90 day [...] weight may improve or resolve your ESTEBAN. Ifyou are not already seeking treatment, there are resources available at the [facility] such as a nutrition consultation or referral to weight management programs at our [facility]. Please let us know if we can assist with a referral. PAP Supply Guidelines Below are the guidelines for reordering your supplies. You will be responsible for your deductible,co-payments, and out of pocket expenses. Item Medicare [...] as instructed by the respiratory therapist with [facility]. Attach one end of your 6-foot tubing [...] mask and headgear as instructed by the pathology technologist or respiratory therapist. The mask should [...] of 1 part white vinegar and 3 partswater for 30 minutes. Rinse thoroughly and air dry. Disposable filters should be replaced once a month. Wash reusable foam filters with warm water and mild detergent at least once a month. Rinse thoroughly and dry with paper towels. Avoid ged teacher that contain fragrance or conditioners, as these [...] machine still fails to operate, please call [phone] or your home care company for assistance. What You Should Know About Insurance There are many different insurance policies and coverage for PAP equipment will vary. Find out whatyour coverage provides and what your responsibilities are [...] to last 9-12 months. Refer to the yoke setter s manual for more information. Important Safety [...] oxygen equipment.DO NOT operate multiple electrical devices fromone outlet. If you have a medical emergency, contact the Emergency Medical Services. Below are the links to follow to watch a PAP education video: http://my.[email or web address]/home_care/services/home_respiratory_therapy.aspx http://www.[employer].com/watch?v=peJ_epDGzEw http://my.[email or web address]/neurological_institute/vzfec-falzmxybf-idqnee/[facility]/pap-therapy.aspx documented in this encounterFair[facility] Center08-29-2023 History of Present illness Narrative* Hailey Jett MD - 02/25/2023 1:51 PM EDT Images from the original note were not included. [facility] Virtual Visit Follow up/ Established patient visit Date of last visit : Visit date not found I have communicated my name and active licensure. The patient's identity and physical location wereverified at the time of this visit. Either the patient or their legal territory service representative has been informed of the risks and benefits of -- and alternatives to -- treatment through a remote evaluation andconsents to proceed with the evaluation remotely. Interval [...] risk of CVA with moderate or severe ESTEBAN,would be advised to diagnose and treat sleep apnea. 12/27/2022: PAP titration - AHI normalizaed at all tested PAP settings (5cmh2o) mild esteban -we will ask the mailroom manager to schedule with anybody in sleep medicine. Per patient preference, I MyChart message her regarding her results, I ordered AutoPap 5-10 cm H2O.KeraFAST. SLEEP APNEA Sleep apnea type : ESTEBAN, Most Recent Apnea-Hypopnea Index (AHI): RDI 9.8, AHI 5.8 Treatment : PAP therapy [facility] PAP History: Uses AutoPAP for 8 hours [...] report abolition of snoring with AutoPAP use. SLEEP HYGIENE QUESTIONS: Bedtime: 00- 1AM. She [...] does takes fewer naps. Previously was Frequency: 01/03, Duration: 2-3h. Naps are sometimes refreshing. PATIENT-ENTERED QUESTIONNAIRE SLEEP SCORES Sleep Questions 02/24/2023 Reason for visit: Sleep apnea Average hours slept in 24 hours: - Average hours of CPAP per night: 9.5 Percent of nights CPAP used at least 4 hours: 5 Accidents or near accidents due to drowsy drivin [place] Sleepiness Scale 09/04/2022 11/08/2022 02/24/2023 Score 9 [...] population = 50. Five points is a clinicallymeaningful difference.) 11/08/2022 02/24/2023 Physical T-Score 50.8 47.7 [...] mg biphasic capsule^Take 1 capsule by mouth everymorning for 30 days.^Disp: 30 capsule^Rfl: 0 methylphenidate (RITALIN) 20 mg tablet^Take 1 tablet by mouth as needed for up to 30 days. Take at approx. 3-4 pm. Do not start before February 08, 2023.^Disp: 30 tablet^Rfl: 0 [START ON 03/10/2023] methylphenidate (RITALIN) 20 mg tablet^Take 1 tablet by mouth as needed for upto 30 days. Take at approx. 3-4 pm. Do not start before March 10, 2023.^Disp: 30 tablet^Rfl: 0 amphetamine-dextroamphetamine XR (ADDERALL XR) 30 mg biphasic capsule^Take 1 capsule by mouth everymorning for 30 days. Do not start before [...] tab^Take 1 tablet by mouth once daily.^Disp: 30tablet^Rfl: 12 medroxyPROGESTERone (PROVERA) 10 mg tablet^Take 1 tablet by mouth once daily. for the -10th of each month^Disp: 10 tablet^Rfl: 11 Prior Hypersomnia/Narcolepsy Medications (20 years) Some values may be hidden. Unless noted otherwise, only the newest values recorded on each date aredisplayed. Also, latest columns from 02/26/2013 - 02/26/2023 [...] hr capsule Dose: 40 mg DAILY Starting date:09/09/2015 Ending date: 09/13/2015 (Discontinued) amphetamine-dextroamphetamine XR (ADDERALL XR) 20 mg 24 hr capsule Dose: 40 mg DAILY Starting date:08/11/2015 Ending date: 09/13/2015 (Discontinued) amphetamine-dextroamphetamine XR (ADDERALL XR) 5 mg ORAL 24 hr capsule Dose: 5 mg EVERY MORNING Starting date: 06/05/2011 Ending date: 06/27/2011 (Discontinued) amphetamine-dextroamphetamine XR (ADDERALL XR) 5 mg 24 hr capsule Dose: 5 mg EVERY MORNING Startingdate: 10/24/2014 Ending date: 02/16/2015 (Discontinued) amphetamine-dextroamphetamine XR (ADDERALL XR) 5 mg 24 hr capsule Dose: 5 mg EVERY MORNING Startingdate: 11/14/2014 Ending date: 02/16/2015 (Discontinued) amphetamine-dextroamphetamine XR (ADDERALL XR) 5 mg 24 hr capsule Dose: 5 mg EVERY MORNING Startingdate: 12/15/2014 Ending date: 02/16/2015 (Discontinued) amphetamine-dextroamphetamine XR (ADDERALL XR) 5 mg 24 hr capsule Dose: 5 mg EVERY MORNING Startingdate: 01/14/2015 Ending date: 05/12/2015 (Discontinued) amphetamine-dextroamphetamine XR (ADDERALL XR) 5 mg 24 hr capsule Dose: 5 mg EVERY MORNING Startingdate: 02/17/2015 Ending date: 05/12/2015 (Discontinued) amphetamine-dextroamphetamine XR (ADDERALL XR) 5 mg 24 hr capsule Dose: 5 mg EVERY MORNING Startingdate: 04/18/2015 Ending date: 05/16/2015 (Discontinued) amphetamine-dextroamphetamine XR (ADDERALL XR) 5 mg 24 hr capsule Dose: 5 mg EVERY MORNING Startingdate: 03/19/2015 Ending date: 05/10/2015 (Discontinued) amphetamine-dextroamphetamine XR (ADDERALL XR) 5 mg 24 hr capsule Dose: 5 mg EVERY MORNING Startingdate: 05/16/2015 Ending date: 09/13/2015 (Discontinued) atomoxetine (STRATTERA) 40 mg capsule Dose: 40 mg DAILY (NOTE: This is a starter dose. Take 1 dailyfor the first 3 days.) Starting date: 07/31/2012 [...] po approx. 3-4 pm prn Starting date: 04/16/2010Ending date: 05/10/2010 (Discontinued) methylphenidate (RITALIN) 20 mg ORAL tablet Dose: 1 po approx. 3-4 pm prn Starting date: 05/10/2010Ending date: 06/05/2010 (Discontinued) methylphenidate (RITALIN) 20 mg ORAL tablet Dose: 1 po approx. 3-4 pm prn Starting date: 06/05/2010 Ending date: 06/29/2010 (Discontinued) methylphenidate (RITALIN) 20 mg ORAL tablet Dose: 1 po approx. 3-4 pm prn Starting date: 06/29/2010Ending date: 07/26/2010 (Discontinued) methylphenidate (RITALIN) 20 mg [...] NEEDED Take at approx. 3-4 pm. Starting date:09/26/2012 Ending date: 10/24/2012 (Discontinued) methylphenidate (RITALIN) 20 mg tablet Dose: 20 mg NEEDED Take at approx. 3-4 pm. Starting date:10/24/2012 Ending date: 11/21/2012 (Discontinued) methylphenidate (RITALIN) 20 mg tablet Dose: 20 mg NEEDED Take at approx. 3-4 pm. Starting date:11/21/2012 Ending date: 12/22/2012 (Discontinued) methylphenidate (RITALIN) 20 mg tablet Dose: 20 mg NEEDED Take at approx. 3-4 pm. Starting date:12/22/2012 Ending date: 01/19/2013 (Discontinued) methylphenidate (RITALIN) 20 mg tablet Dose: 20 mg NEEDED Take at approx. 3-4 pm. Starting date:01/19/2013 Ending date: 02/18/2013 (Discontinued) methylphenidate (RITALIN) 20 mg tablet Dose: 20 mg NEEDED Take at approx. 3-4 pm. Starting date:02/18/2013 Ending date: 03/22/2013 (Discontinued) methylphenidate (RITALIN) 20 mg tablet Dose: 20 mg NEEDED Take at approx. 3-4 pm. Starting date:03/22/2013 Ending date: 04/19/2013 (Discontinued) methylphenidate (RITALIN) 20 mg tablet Dose: 20 mg NEEDED Take at approx. 3-4 pm. Starting date:04/19/2013 Ending date: 05/18/2013 (Discontinued) methylphenidate (RITALIN) 20 mg tablet Dose: 20 mg NEEDED Take at approx. 3-4 pm. Starting date:05/18/2013 Ending date: 06/15/2013 (Discontinued) methylphenidate (RITALIN) 20 mg tablet Dose: 20 mg NEEDED Take at approx. 3-4 pm. Starting date:06/15/2013 Ending date: 07/14/2013 (Discontinued) methylphenidate (RITALIN) 20 mg tablet Dose: 20 mg NEEDED Take at approx. 3-4 pm. Starting date:07/14/2013 Ending date: 08/12/2013 (Discontinued) methylphenidate (RITALIN) 20 mg tablet Dose: 20 mg NEEDED Take at approx. 3-4 pm. Starting date:08/12/2013 Ending date: 09/07/2013 (Discontinued) methylphenidate (RITALIN) 20 mg tablet Dose: 20 mg NEEDED Take at approx. 3-4 pm. Starting date:09/07/2013 Ending date: 10/06/2013 (Discontinued) methylphenidate (RITALIN) 20 mg tablet Dose: 20 mg NEEDED Take at approx. 3-4 pm. Starting date:10/06/2013 Ending date: 11/03/2013 (Discontinued) methylphenidate (RITALIN) 20 mg tablet Dose: 20 mg NEEDED Take at approx. 3-4 pm. Starting date:11/03/2013 Ending date: 12/02/2013 (Discontinued) methylphenidate (RITALIN) 20 mg tablet Dose: 20 mg NEEDED Take at approx. 3-4 pm. Starting date:12/02/2013 Ending date: 12/29/2013 (Discontinued) methylphenidate (RITALIN) 20 mg tablet Dose: 20 mg NEEDED Take at approx. 3-4 pm. Starting date:12/29/2013 Ending date: 01/28/2014 (Discontinued) methylphenidate (RITALIN) 20 mg tablet Dose: 20 mg NEEDED Take at approx. 3-4 pm. Starting date:01/28/2014 Ending date: 03/01/2014 (Discontinued) methylphenidate (RITALIN) 20 mg tablet Dose: 20 mg NEEDED Take at approx. 3-4 pm. Starting date:03/01/2014 Ending date: 03/28/2014 (Discontinued) methylphenidate (RITALIN) 20 mg tablet Dose: 20 mg NEEDED Take at approx. 3-4 pm. Starting date:03/28/2014 Ending date: 04/22/2014 (Discontinued) methylphenidate (RITALIN) 20 mg tablet Dose: 20 mg NEEDED Take at approx. 3-4 pm. Starting date:04/22/2014 Ending date: 06/09/2014 (Discontinued) methylphenidate (RITALIN) 20 mg tablet Dose: 20 mg NEEDED Take at approx. 3-4 pm. Starting date:04/22/2014 Ending date: 04/22/2014 (Discontinued) methylphenidate (RITALIN) 20 mg tablet Dose: 20 mg NEEDED Take at approx. 3-4 pm. Starting date:04/22/2014 Ending date: 04/22/2014 (Discontinued) methylphenidate (RITALIN) 20 mg tablet Dose: 20 mg NEEDED Take at approx. 3-4 pm. Starting date:06/22/2014 Ending date: 06/09/2014 (Discontinued) methylphenidate (RITALIN) 20 mg tablet Dose: 20 mg NEEDED Take at approx. 3-4 pm. Starting date:05/23/2014 Ending date: 07/21/2014 (Discontinued) methylphenidate (RITALIN) 20 mg tablet Dose: 20 mg NEEDED Take at approx. 3-4 pm. Starting date:07/21/2014 Ending date: 10/18/2014 (Discontinued) methylphenidate (RITALIN) 20 mg tablet Dose: 20 mg NEEDED Take at approx. 3-4 pm. Starting date:08/22/2014 Ending date: 10/18/2014 (Discontinued) methylphenidate (RITALIN) 20 mg tablet Dose: 20 mg NEEDED Take at approx. 3-4 pm. Starting date:09/19/2014 Ending date: 10/18/2014 (Discontinued) methylphenidate (RITALIN) 20 mg tablet Dose: 20 mg NEEDED Take at approx. 3-4 pm. Starting date:10/18/2014 Ending date: 11/17/2014 (Discontinued) methylphenidate (RITALIN) 20 mg tablet Dose: 20 mg NEEDED Take at approx. 3-4 pm. Starting date:01/18/2015 Ending date: 02/16/2015 (Discontinued) methylphenidate (RITALIN) 20 mg tablet Dose: 20 mg NEEDED Take at approx. 3-4 pm. Starting date:12/19/2014 Ending date: 02/16/2015 (Discontinued) methylphenidate (RITALIN) 20 mg tablet Dose: 20 mg NEEDED Take at approx. 3-4 pm. Starting date:11/18/2014 Ending date: 02/16/2015 (Discontinued) methylphenidate (RITALIN) 20 mg tablet Dose: 20 mg NEEDED Take at approx. 3-4 pm. Starting date:02/17/2015 Ending date: 05/16/2015 (Discontinued) methylphenidate (RITALIN) 20 mg tablet Dose: 20 mg NEEDED Take at approx. 3-4 pm. Starting date:03/19/2015 Ending date: 05/12/2015 (Discontinued) methylphenidate (RITALIN) 20 mg tablet Dose: 20 mg NEEDED Take at approx. 3-4 pm. Starting date:04/18/2015 Ending date: 05/12/2015 (Discontinued) methylphenidate (RITALIN) 20 mg tablet Dose: 20 mg NEEDED Take at approx. 3-4 pm. Starting date:05/16/2015 Ending date: 06/14/2015 (Discontinued) methylphenidate (RITALIN) 20 mg tablet Dose: 20 mg NEEDED Take at approx. 3-4 pm. Starting date:06/14/2015 Ending date: 07/11/2015 (Discontinued) methylphenidate (RITALIN) 20 mg tablet Dose: 20 mg NEEDED Take at approx. 3-4 pm. Starting date:07/11/2015 Ending date: 10/11/2015 (Discontinued) methylphenidate (RITALIN) 20 mg tablet Dose: 20 mg NEEDED Take at approx. 3-4 pm. Starting date:09/09/2015 Ending date: 10/11/2015 (Discontinued) methylphenidate (RITALIN) 20 mg tablet Dose: 20 mg NEEDED Take at approx. 3-4 pm. Starting date:08/11/2015 Ending date: 10/11/2015 (Discontinued) methylphenidate (RITALIN) 20 mg tablet Dose: 20 mg NEEDED Take at approx. 3-4 pm. Starting date:11/10/2015 Ending date: 12/05/2015 (Discontinued) methylphenidate (RITALIN) 20 mg tablet Dose: 20 mg NEEDED Take at approx. 3-4 pm. Starting date:12/11/2015 Ending date: 03/12/2016 (Discontinued) methylphenidate (RITALIN) 20 mg tablet Dose: 20 mg NEEDED Take at approx. 3-4 pm. Starting date:10/11/2015 Ending date: 03/12/2016 (Discontinued) methylphenidate (RITALIN) 20 mg tablet Dose: 20 mg NEEDED Take at approx. 3-4 pm. Starting date:01/09/2016 Ending date: 02/09/2016 (Discontinued) methylphenidate (RITALIN) 20 mg tablet Dose: 20 mg NEEDED Take at approx. 3-4 pm. Starting date:02/09/2016 Ending date: 03/12/2016 (Discontinued) methylphenidate (RITALIN) 20 mg tablet Dose: 20 mg NEEDED Take at approx. 3-4 pm. Starting date:05/09/2016 Ending date: 06/07/2016 (Discontinued) methylphenidate (RITALIN) 20 mg tablet Dose: 20 mg NEEDED Take at approx. 3-4 pm. Starting date:04/10/2016 Ending date: 06/07/2016 (Discontinued) methylphenidate (RITALIN) 20 mg tablet Dose: 20 mg NEEDED Take at approx. 3-4 pm. Starting date:03/12/2016 Ending date: 06/07/2016 (Discontinued) methylphenidate (RITALIN) 20 mg tablet Dose: 20 mg NEEDED Take at approx. 3-4 pm. Starting date:06/07/2016 Ending date: 07/09/2016 (Discontinued) methylphenidate (RITALIN) 20 mg tablet Dose: 20 mg NEEDED between 3-4 pm Starting date: 08/08/2016Ending date: 09/09/2016 (Discontinued) methylphenidate (RITALIN) 20 mg tablet Dose: 20 mg NEEDED between 3-4 pm Starting date: 09/07/2016 Ending date: 09/09/2016 (Discontinued) methylphenidate (RITALIN) 20 mg tablet Dose: 20 mg NEEDED Take at approx. 3-4 pm. Starting date:07/09/2016 Ending date: 09/09/2016 (Discontinued) methylphenidate (RITALIN) 20 mg tablet Dose: 20 mg NEEDED Take at approx. 3-4 pm. Starting date:11/09/2016 Ending date: 12/09/2016 (Discontinued) methylphenidate (RITALIN) 20 mg tablet Dose: 20 mg NEEDED Take at approx. 3-4 pm. Starting date:10/10/2016 Ending date: 12/09/2016 (Discontinued) methylphenidate (RITALIN) 20 mg tablet Dose: 20 mg NEEDED Take at approx. 3-4 pm. Starting date:09/09/2016 Ending date: 12/09/2016 (Discontinued) methylphenidate (RITALIN) 20 mg tablet Dose: 20 mg NEEDED Take at approx. 3-4 pm. Starting date:12/09/2016 Ending date: 01/07/2017 (Discontinued) methylphenidate (RITALIN) 20 mg tablet Dose: 20 mg NEEDED Take at approx. 3-4 pm. Starting date:01/07/2017 Ending date: 02/03/2017 (Discontinued) methylphenidate (RITALIN) 20 mg tablet Dose: 20 mg NEEDED Take at approx. 3-4 pm. Starting date:02/03/2017 Ending date: 03/14/2017 (Discontinued) methylphenidate (RITALIN) 20 mg tablet Dose: 20 mg NEEDED Take at approx. 3-4 pm. Starting date:05/14/2017 Ending date: 06/11/2017 (Discontinued) methylphenidate (RITALIN) 20 mg tablet Dose: 20 mg NEEDED Take at approx. 3-4 pm. Starting date:04/13/2017 Ending date: 06/11/2017 (Discontinued) methylphenidate (RITALIN) 20 mg tablet Dose: 20 mg NEEDED Take at approx. 3-4 pm. Starting date:03/14/2017 Ending date: 06/11/2017 (Discontinued) methylphenidate (RITALIN) 20 mg tablet Dose: 20 mg NEEDED Take at approx. 3-4 pm. Starting date:06/11/2017 Ending date: 09/08/2017 (Discontinued) methylphenidate (RITALIN) 20 mg tablet Dose: 20 mg NEEDED Take at approx. 3-4 pm. Starting date:08/10/2017 Ending date: 09/08/2017 (Discontinued) methylphenidate (RITALIN) 20 mg tablet Dose: 20 mg NEEDED Take at approx. 3-4 pm. Starting date:07/11/2017 Ending date: 09/08/2017 (Discontinued) methylphenidate (RITALIN) 20 mg tablet Dose: 20 mg NEEDED Take at approx. 3-4 pm. Starting date:09/08/2017 Ending date: 09/30/2017 (Discontinued) methylphenidate (RITALIN) 20 mg tablet Dose: 20 mg NEEDED Take at approx. 3-4 pm. Starting date:09/30/2017 Ending date: 11/07/2017 (Discontinued) methylphenidate (RITALIN) 20 mg tablet Dose: 20 mg NEEDED Take at approx. 3-4 pm. Starting date:11/07/2017 Ending date: 12/08/2017 (Discontinued) methylphenidate (RITALIN) 20 mg tablet Dose: 20 mg NEEDED Take at approx. 3-4 pm. Starting date:12/08/2017 Ending date: 03/04/2018 (Discontinued) methylphenidate (RITALIN) 20 mg tablet Dose: 20 mg NEEDED Take at approx. 3-4 pm. Starting date:01/07/2018 Ending date: 03/04/2018 (Discontinued) methylphenidate (RITALIN) 20 mg tablet Dose: 20 mg NEEDED Take at approx. 3-4 pm. Starting date:02/06/2018 Ending date: 03/04/2018 (Discontinued) methylphenidate (RITALIN) 20 mg tablet Dose: 20 mg NEEDED Take at approx. 3-4 pm. Starting date:05/04/2018 Ending date: 05/28/2018 (Discontinued) methylphenidate (RITALIN) 20 mg tablet Dose: 20 mg NEEDED Take at approx. 3-4 pm. Starting date:04/03/2018 Ending date: 03/25/2018 (Discontinued) methylphenidate (RITALIN) 20 mg tablet Dose: 20 mg NEEDED Take at approx. 3-4 pm. Starting date:03/04/2018 Ending date: 03/25/2018 (Discontinued) methylphenidate (RITALIN) 20 mg tablet Dose: 20 mg NEEDED Take at approx. 3-4 pm. Starting date:05/28/2018 Ending date: 06/18/2018 (Discontinued) methylphenidate (RITALIN) 20 mg tablet Dose: 20 mg NEEDED Take at approx. 3-4 pm. Starting date:06/18/2018 Ending date: 07/22/2018 (Discontinued) methylphenidate (RITALIN) 20 mg tablet Dose: 20 mg NEEDED Take at approx. 3-4 pm. Starting date:07/23/2018 Ending date: 08/20/2018 (Discontinued) methylphenidate (RITALIN) 20 mg tablet Dose: 20 mg NEEDED Take at approx. 3-4 pm. Starting date:08/20/2018 Ending date: 09/08/2018 (Discontinued) methylphenidate (RITALIN) 20 mg tablet Dose: 20 mg NEEDED Take at approx. 3-4 pm. Starting date:09/08/2018 Ending date: 10/19/2018 (Discontinued) methylphenidate (RITALIN) 20 mg tablet Dose: 20 mg NEEDED Take at approx. 3-4 pm. Starting date:10/21/2018 Ending date: 11/17/2018 (Discontinued) methylphenidate (RITALIN) 20 mg tablet Dose: 20 mg NEEDED Take at approx. 3-4 pm. Starting date:11/17/2018 Ending date: 12/18/2018 (Discontinued) methylphenidate (RITALIN) 20 mg tablet Dose: 20 mg NEEDED Take at approx. 3-4 pm. Starting date:12/18/2018 Ending date: 01/19/2019 (Discontinued) methylphenidate (RITALIN) 20 mg tablet Dose: 20 mg NEEDED Take at approx. 3-4 pm. Starting date:01/19/2019 Ending date: 02/17/2019 (Discontinued) methylphenidate (RITALIN) 20 mg tablet Dose: 20 mg NEEDED Take at approx. 3-4 pm. Starting date:02/18/2019 Ending date: 03/18/2019 (Discontinued) methylphenidate (RITALIN) 20 mg tablet Dose: 20 mg NEEDED Take at approx. 3-4 pm. Starting date:03/18/2019 Ending date: 04/13/2019 (Discontinued) methylphenidate (RITALIN) 20 mg tablet Dose: 20 mg NEEDED Take at approx. 3-4 pm. Starting date:04/13/2019 Ending date: 07/15/2019 (Discontinued) methylphenidate (RITALIN) 20 mg tablet Dose: 20 mg NEEDED Take at approx. 3-4 pm. Starting date:05/17/2019 Ending date: 06/16/2019 (Discontinued) methylphenidate (RITALIN) 20 mg tablet Dose: 20 mg NEEDED Take at approx. 3-4 pm. Starting date:06/17/2019 Ending date: 07/15/2019 (Discontinued) methylphenidate (RITALIN) 20 mg tablet Dose: 20 mg NEEDED Take at approx. 3-4 pm. Starting date:07/15/2019 Ending date: 08/20/2019 (Discontinued) methylphenidate (RITALIN) 20 mg tablet Dose: 20 mg NEEDED Take at approx. 3-4 pm. Starting date:08/20/2019 Ending date: 09/17/2019 (Discontinued) methylphenidate (RITALIN) 20 mg tablet Dose: 20 mg NEEDED Take at approx. 3-4 pm. Starting date:09/17/2019 Ending date: 10/19/2019 (Discontinued) methylphenidate (RITALIN) 20 mg tablet Dose: 20 mg NEEDED Take at approx. 3-4 pm. Starting date:10/19/2019 Ending date: 11/17/2019 (Discontinued) methylphenidate (RITALIN) 20 mg tablet Dose: 20 mg NEEDED Take at approx. 3-4 pm. Starting date:11/18/2019 Ending date: 12/22/2019 (Discontinued) methylphenidate (RITALIN) 20 mg tablet Dose: 20 mg NEEDED Take at approx. 3-4 pm. Starting date:12/23/2019 Ending date: 01/28/2020 (Discontinued) methylphenidate (RITALIN) 20 mg tablet Dose: 20 mg NEEDED Take at approx. 3-4 pm. Starting date:01/28/2020 Ending date: 03/01/2020 (Discontinued) methylphenidate (RITALIN) 20 mg tablet Dose: 20 mg NEEDED Take at approx. 3-4 pm. Starting date:03/02/2020 Ending date: 04/07/2020 (Discontinued) methylphenidate (RITALIN) 20 mg tablet Dose: 20 mg NEEDED Take at approx. 3-4 pm. Starting date:04/07/2020 Ending date: 05/12/2020 (Discontinued) methylphenidate (RITALIN) 20 mg tablet Dose: 20 mg NEEDED Take at approx. 3-4 pm. Starting date:05/12/2020 Ending date: 06/16/2020 (Discontinued) methylphenidate (RITALIN) 20 mg tablet Dose: 20 mg NEEDED Take at approx. 3-4 pm. Starting date:06/16/2020 Ending date: 07/21/2020 (Discontinued) methylphenidate (RITALIN) 20 mg tablet Dose: 20 mg NEEDED Take at approx. 3-4 pm. Starting date:07/21/2020 Ending date: 08/29/2020 (Discontinued) methylphenidate (RITALIN) 20 mg tablet Dose: 20 mg NEEDED Take at approx. 3-4 pm. Starting date:08/29/2020 Ending date: 10/10/2020 (Discontinued) methylphenidate (RITALIN) 20 mg tablet Dose: 20 mg NEEDED Take at approx. 3-4 pm. Starting date:10/10/2020 Ending date: 11/18/2020 (Discontinued) methylphenidate (RITALIN) 20 mg tablet Dose: 20 mg NEEDED Take at approx. 3-4 pm. Starting date:11/20/2020 Ending date: 2020 (Discontinued) methylphenidate (RITALIN) 20 mg tablet Dose: 20 mg NEEDED Take at approx. 3-4 pm. Starting date:01/02/2021 Ending date: 02/10/2021 (Discontinued) methylphenidate (RITALIN) 20 mg tablet Dose: 20 mg NEEDED Take at approx. 3-4 pm. Starting date:02/13/2021 Ending date: 03/17/2021 (Discontinued) methylphenidate (RITALIN) 20 mg tablet Dose: 20 mg NEEDED Take at approx. 3-4 pm. Starting date:03/17/2021 Ending date: 05/03/2021 (Discontinued) methylphenidate (RITALIN) 20 mg tablet Dose: 20 mg NEEDED Take at approx. 3-4 pm. Starting date:05/03/2021 Ending date: 06/13/2021 (Discontinued) methylphenidate (RITALIN) 20 mg tablet Dose: 20 mg NEEDED Take at approx. 3-4 pm. Starting date:06/14/2021 Ending date: 07/12/2021 (Discontinued) methylphenidate (RITALIN) 20 mg tablet Dose: 20 mg NEEDED Take at approx. 3-4 pm. Starting date:07/12/2021 Ending date: 08/14/2021 (Discontinued) methylphenidate (RITALIN) 20 mg tablet Dose: 20 mg NEEDED Take at approx. 3-4 pm. Starting date:08/14/2021 Ending date: 09/11/2021 (Discontinued) methylphenidate (RITALIN) 20 mg tablet Dose: 20 mg NEEDED Take at approx. 3-4 pm. Starting date:09/11/2021 Ending date: 10/09/2021 (Discontinued) methylphenidate (RITALIN) 20 mg tablet Dose: 20 mg NEEDED Take at approx. 3-4 pm. Starting date:10/09/2021 Ending date: 11/06/2021 (Discontinued) methylphenidate (RITALIN) 20 mg tablet Dose: 20 mg NEEDED Take at approx. 3-4 pm. Starting date:11/07/2021 Ending date: 12/07/2021 (Discontinued) methylphenidate (RITALIN) 20 mg tablet Dose: 20 mg NEEDED Take at approx. 3-4 pm. Starting date:12/07/2021 Ending date: 01/04/2022 (Discontinued) methylphenidate (RITALIN) 20 mg tablet Dose: 20 mg NEEDED Take at approx. 3-4 pm. Starting date:01/04/2022 Ending date: 01/30/2022 (Discontinued) methylphenidate (RITALIN) 20 mg tablet Dose: 20 mg NEEDED Take at approx. 3-4 pm. Starting date:01/30/2022 Ending date: 03/05/2022 (Discontinued) methylphenidate (RITALIN) 20 mg tablet Dose: 20 mg NEEDED Take at approx. 3-4 pm. Starting date:03/05/2022 Ending date: 04/04/2022 (Discontinued) methylphenidate (RITALIN) 20 mg tablet Dose: 20 mg NEEDED Take at approx. 3-4 pm. Starting date:04/04/2022 Ending date: 05/09/2022 (Discontinued) methylphenidate (RITALIN) 20 mg tablet Dose: 20 mg NEEDED Take at approx. 3-4 pm. Starting date:05/09/2022 Ending date: 06/06/2022 (Discontinued) methylphenidate (RITALIN) 20 mg tablet Dose: 20 mg NEEDED Take at approx. 3-4 pm. Starting date:06/06/2022 Ending date: 07/03/2022 (Discontinued) methylphenidate (RITALIN) 20 mg tablet Dose: 20 mg NEEDED Take at approx. 3-4 pm. Starting date:07/04/2022 Ending date: 08/05/2022 (Discontinued) methylphenidate (RITALIN) 20 mg tablet Dose: 20 mg NEEDED Take at approx. 3-4 pm. Starting date:08/06/2022 Ending date: 09/09/2022 (Discontinued) methylphenidate (RITALIN) 20 mg tablet Dose: 20 mg NEEDED Take at approx. 3-4 pm. Starting date:09/10/2022 Ending date: 10/09/2022 (Discontinued) methylphenidate (RITALIN) 20 mg tablet Dose: 20 mg NEEDED Take at approx. 3-4 pm. Starting date:10/10/2022 Ending date: 10/28/2022 (Discontinued) methylphenidate (RITALIN) 20 mg tablet Dose: 20 mg NEEDED Take at approx. 3-4 pm. Starting date:11/09/2022 Ending date: 12/10/2022 (Discontinued) methylphenidate (RITALIN) 20 mg tablet Dose: 20 mg NEEDED Take at approx. 3-4 pm. Starting date:01/08/2023 Ending date: 01/08/2023 (Discontinued) methylphenidate (RITALIN) 20 mg tablet Dose: 20 mg NEEDED Take at approx. 3-4 pm. Starting date:12/09/2022 Ending date: 01/28/2023 (Discontinued) methylphenidate (RITALIN) 20 mg tablet Dose: 20 mg NEEDED Take at approx. 3-4 pm. Starting date:12/10/2022 Ending date: 01/09/2023 methylphenidate (RITALIN) 20 mg tablet Dose: 20 mg NEEDED Take at approx. 3-4 pm. Starting date:01/09/2023 Ending date: 01/13/2023 (Discontinued) methylphenidate (RITALIN) 20 mg tablet Dose: 20 mg NEEDED Take at approx. 3-4 pm. Starting date:02/08/2023 Ending date: 03/10/2023 methylphenidate (RITALIN) 20 mg tablet Dose: 20 mg NEEDED Take at approx. 3-4 pm. Starting date:03/10/2023 Ending date: 04/09/2023 methylphenidate (RITALIN) 20 mg tablet Dose: 20 mg NEEDED Take at approx. 3-4 pm. Starting date:01/14/2023 Ending date: 02/13/2023 methylphenidate (RITALIN) 20 mg tablet Dose: 20 mg NEEDED Take at approx. 3-4 pm. Starting date:04/09/2023 Ending date: 05/09/2023 METHYLPHENIDATE 10 MG TAB [...] approx. 3-4 pm prn Starting date: 07/05/2009 Endingdate: 08/03/2009 (Discontinued) methylphenidate hcl(RITALIN 20 MG TAB) Dose: 1 po approx. 3-4 pm prn Starting date: 08/03/2009 Endingdate: 08/30/2009 (Discontinued) methylphenidate hcl(RITALIN 20 MG TAB) Dose: 1 po approx. 3-4 pm prn Starting date: 08/30/2009 Endingdate: 09/25/2009 (Discontinued) methylphenidate hcl(RITALIN 20 MG TAB) [...] approx. 3-4 pm prn Starting date: 02/05/2010 Endingdate: 03/01/2010 (Discontinued) methylphenidate hcl(RITALIN 20 MG TAB) Dose: 1 po approx. 3-4 pm prn Starting date: 03/01/2010 Endingdate: 03/20/2010 (Discontinued) methylphenidate hcl(RITALIN 20 MG TAB) [...] noon and then 4 pm Starting date: 10/31/2005Ending date: 12/13/2005 (Discontinued) RITALIN 10 MG TAB [...] 2 tablet at 3pm prn Starting date: 01/30/2007Ending date: 02/28/2007 (Discontinued) methylphenidate (RITALIN) 5 mg ORAL Tab Dose: Take 1 or 2 tablet at 3pm prn Starting date: 02/28/2007Ending date: 03/26/2007 (Discontinued) methylphenidate (RITALIN) 5 mg [...] 2 tablet at 3pm prn Starting date: 06/25/2007Ending date: 07/22/2007 (Discontinued) methylphenidate hcl(RITALIN 5 MG TAB) Dose: Take 1 or 2 tablet at 3pm prn Starting date: 06/25/2007Ending date: 07/25/2007 methylphenidate hcl(RITALIN 5 MG TAB) [...] 2 tablet at 3pm prn Starting date: 06/22/2008Ending date: 07/30/2008 (Discontinued) methylphenidate hcl(RITALIN 5 MG [...] the newest values recorded on each date aredisplayed. RLS Medications HYDROcodone 5 mg - acetaminophen 325 mg tablet (NORCO) Dose: 1-2 tablet ONCE Give 1 tab for moderate pain Give 2 tabs for severe pain Starting date: 07/05/2022 Ending date: 07/05/2022 (Discontinued) morphine 4 mg injection Dose: 4 mg X (PACU ONLY) PRN 2nd Line Therapy for Breakthrough Pain MaximumTOTAL DOSE from ALL orders = 0.15 mg/kg, not to exceed 10 mg May give every 10 minutes as needed Starting date: 05/12/2015 Ending date: 05/12/2015 (Discontinued) Prior Insomnia Medications (last 20 years) Some values may be hidden. Unless noted otherwise, only the newest values recorded on each date aredisplayed. Insomnia Medications ESCITALOPRAM OXALATE (LEXAPRO ORAL) Dose: [...] risk of CVA with moderate or severe ESTEBAN,would be advised to diagnose and treat sleep apnea. -Increase from 5-10 cm H2O to 5-15 cmH2O. - Remember to clean your mask and equipment regularly, as directed. - You should be eligible for new supplies approximately every 3-6 months, depending on your insurance coverage. Contact your [employer] company for new supplies as needed. - Follow up in 2-3 months with Hailey Jett MD or my associates. [facility] REQUIREMENTS: - Your insurance requires a [id number] follow up visit within a 31-90 day [...] to continue to pay for CPAP supplies. Hailey Jett MD Staff, [facility] Appt: [phone] Opt 0 Mail: [address] [place] [address] I spent a total of 30 minutes on the date of the service which included preparing to see the patient, mbry-sl-hite patient care, completing clinical documentation, obtaining and/or reviewing separately obtained history, performing a medically appropriate examination, counseling and educating the pat ient/family/caregiver, and ordering medications, tests, or procedures. Activity Duration Current session 22 minutes Total time: 22 minutes* *Based only on time spent in the patient's chart documented in this encounterFair[facility]08-23-2023 Miscellaneous Notes* Telephone Encounter - Harsh Sahni MA - 02/19/2023 9:12 AM EDT Images from the original note were not included. documented in this encounterFairfield Medical Center08-04-2023 History of Present illness Narrative* John Paul Saldaña - 01/31/2023 8:21 AM EDT CMN RECEIVED BY [employer] VIA FAX, COMPLETED, AND PLACED IN PROVIDER MAILBOX FOR SIGNATURE John Paul Saldaña, Administration Assistance 01/31/23 [employer] COMPANY SENDING CMN: [place] SIGNED AND DATED CMN, FAXED TO DME & CONFIRMATION PAGE RECEIVED: 02/06/23 documented in this encounterFairfield Medical Center08-01-2023 History of Present illness Narrative* 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 APRN.[employer] - 01/28/2023 1:40 PM EDT SUBJECTIVE: COVID-19 VACCINE(1) Never done DTAP,TDAP,TD(7 - [...] She has been followed by specialists. Dr. Hailey Loera sleep disorders, to discuss sleep study results. Gastroenterology, Zuleika Perez PAC, last seen 07/2022 regarding fatty liver. Biopsy completed butnot adequate, repeat endorse but declined. She noted fatigue. Vitamin D deficiency noted, repletionendorsed. She was referred to manufacturing process engineer for chronic platelet and white blood cell [...] Was previously effective. She notes using Aleve lwco-oaz-cvcazrs and hemp cream along with sleep helps [...] noted. Helps with concentration. Previously prescribed by speaking unit assembler, Dr. Smalls. Some rare heartburn noted, taking [...] Wt 135.2 kg (298 lb) LMP 01/17/2023 LaD550% BMI 38.26 kg/m Physical Exam Vitals and [...] mg biphasic capsule^Take 1 capsule by mouth everymorning for 30 days.^Disp: 30 capsule^Rfl: 0 [START ON 02/08/2023] methylphenidate (RITALIN) 20 mg tablet^Take 1 tablet by mouth as needed for upto 30 days. Take at approx. 3-4 pm. Do not start before February 08, 2023.^Disp: 30 tablet^Rfl: 0 [START ON 03/10/2023] methylphenidate (RITALIN) 20 mg tablet^Take 1 tablet by mouth as needed for upto 30 days. Take at approx. 3-4 pm. [...] tab^Take 1 tablet by mouth once daily.^Disp: 30tablet^Rfl: 12 medroxyPROGESTERone (PROVERA) 10 mg tablet^Take 1 [...] Kate Silva MD - establish 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 APRN.[employer]ER[employer] Medical Decision Making: Problems: Moderate: 2+ stable chronic illnesses Risk: Moderate: Drug management Medical Decision Making Level: 4 - Moderate documented in this encounterFairfield [facility] Center07-17-2023 Miscellaneous Notes* Telephone Encounter - Marci Lynch LPN - 01/13/2023 4:05 PM EDT Pap order faxed to [facility] with demographics, office notes with confirmation. documented in this encounterFairfield Medical Center07-17-2023 History of Present illness Narrative* Gopal Yanez MD - 01/13/2023 2:27 PM EDT HISTORY OF PRESENT ILLNESS: Katie Forde is [...] mg biphasic capsule^Take 1 capsule by mouth everymorning for 30 days.^Disp: 30 capsule^Rfl: 0 topiramate (TOPAMAX) 25 mg tablet^Take 1 tablet by mouth once daily.^Disp: 30 tablet^Rfl: 11 omeprazole (PRILOSEC) 20 mg capsule^Take 1 capsule by mouth once daily.^Disp: 30 capsule^Rfl: 5 PNV No.40-Iron Fum-FA Cmb No.1 (PNV-SELECT) 27-1 mg tab^Take 1 tablet by mouth once daily.^Disp: 30tablet^Rfl: 12 medroxyPROGESTERone (PROVERA) 10 mg tablet^Take 1 tablet by mouth once daily. for the 1st-10th of each month^Disp: 10 tablet^Rfl: 11 CPAP/BIPAP/OTHER^Type .CPAPSettings into a note to see current settings/supplies/DME information.^Disp: 1 Each^Rfl: 0 [START ON 02/08/2023] methylphenidate (RITALIN) 20 mg tablet^Take 1 tablet by mouth as needed for upto 30 days. Take at approx. 3-4 pm. Do not start before February 08, 2023.^Disp: 30 tablet^Rfl: 0 [START ON 03/10/2023] methylphenidate (RITALIN) 20 mg tablet^Take 1 tablet by mouth as needed for upto 30 days. Take at approx. 3-4 pm. [...] which included preparing to see the patient, geml-kv-uxyn patient care, completing clinical documentation, obtaining and/or reviewing separately obtained history, performing a medically appropriate examination, counseling and educating the pat ient/family/caregiver, ordering medications, tests, or procedures, independently interpreting results (not separately reported), and communicating results to the patient/family/caregiver. Electronically Signed: Gopal Yanez MD January 13, 2023 2:31 PM documented in this encounterFairfield Medical Center07-17-2023 Miscellaneous Notes* Telephone Encounter - Zelalem Forde Ma - 01/13/2023 2:06 PM EDT Pending. documented in this encounterFairfield Medical Center07-17-2023 History of Present illness Narrative* Hailey Jett MD - 01/13/2023 9:45 AM EDT S/p PAP titration ORDERED [facility] documented in this encounterFairfield Medical Center07-15-2023 Miscellaneous Notes* Telephone Encounter - Jeannette Arvizu LPN - 01/11/2023 9:48 AM EDT Patient notified. Verbalized understanding. * Telephone Encounter - Aria Walden PA - 01/11/2023 8:05 AM EDT Please let patient know she was positive for yeast. She is already prescribed Diflucan. Take as prescribed. documented in this encounterFairfield Medical Center07-14-2023 History of Present illness Narrative* Aria Walden PA - 01/10/2023 12:02 PM EDT This note was created using Dittoter. Subjective Katie Forde is a 22 year old female. HPI 22-year-old female presents for vaginal discharge, vaginal irritation. Patient states that she is concerned she has a yeast infection. She recently completed amoxicillin for an ear infection. Shesaw her dentist a few days ago and [...] mg biphasic capsule^Take 1 capsule by mouth everymorning for 30 days.^Disp: 30 capsule^Rfl: 0 [START ON 02/08/2023] methylphenidate (RITALIN) 20 mg tablet^Take 1 tablet by mouth as needed for upto 30 days. Take at approx. 3-4 pm. Do not start before February 08, 2023.^Disp: 30 tablet^Rfl: 0 [START ON 03/10/2023] methylphenidate (RITALIN) 20 mg tablet^Take 1 tablet by mouth as needed for upto 30 days. Take at approx. 3-4 pm. [...] tab^Take 1 tablet by mouth once daily.^Disp: 30tablet^Rfl: 12 medroxyPROGESTERone (PROVERA) 10 mg tablet^Take 1 tablet by mouth once daily. for the 1st-10th of each month^Disp: 10 tablet^Rfl: 11 FAMILY [...] nursing note reviewed. Exam conducted with a restaurant lead present. Constitutional: General: She is not in [...] and from cervix. She does have some erythemaof the vaginal canal with irritation. No CMT. [...] ER evaluation. ADITYA Swann documented in this encounterFairfield Medical Center07-13-2023 Miscellaneous Notes* Telephone Encounter - Kate Silva MD - 01/09/2023 3:09 PM EDT The following approved medication requests have been [...] 10, 2023. Authorizing Provider: KATE SILVA MD * Telephone Encounter - Jeannette Arvizu LPN - 01/09/2023 1:21 PM EDT Patient has been identified by name and [...] you. Jeannette Arvizu LPN documented in this encounterFairfield Medical Center07-01-2023 NoteHNO ID: [id number] Author: Vince Ceja Service: ? Author Type: ? Type: Progress Notes Filed: 12/28/2022 2:23 AM Note Text: Sleep Study Check-In Documentation Date: December 28, 2022 Name: Katie Forde Patient was accompanied by Self. Location: [place] Latex allergy: No Tape allergy: No Current [...] Program (KP): KP was not completed in [facility] by patient and accepted Study type: PAP titration Adverse Event: No (If yes create a new abstract) Comments: Patient was advised to follow up with their ordering provider regarding test results [facility]07-01-2023 History of Present illness Narrative* [facility] - 12/28/2022 2:20 AM EDT Sleep Study Check-In Documentation Date: December 28, 2022 Name: Katie Forde Patient was accompanied by Self. Location: [place] Latex allergy: No Tape allergy: No Current [...] Program (KP): KP was not completed in [facility] by patient and accepted Study type: PAP titration Adverse Event: No (If yes create a new abstract) Comments: Patient was advised to follow up with their ordering provider regarding test results Vince Pastrana documented in this encounterFairfield Medical Center06-27-2023 Miscellaneous Notes* Telephone Encounter - Giulia Vo RN - 12/24/2022 5:24 PM EDT Called and the below results reviewed with the patient. Giulia Vo RN * Telephone Encounter - Giulia Vo RN - 12/24/2022 5:19 PM EDT Images from the original note were not included. Rebeca Gonzalez APRN.ELECTRIC STOVE MECHANIC [facility] Cardiology Pool 2 hours ago (2:28 PM) Monitor looks good. No significant arrhythmia. Echocardiogram looks good. She has normal structure and function. Thank you, Rebeca Gonzalez APRN.ELECTRIC STOVE MECHANIC * Telephone Encounter - Giulia Vo RN - 12/24/2022 2:14 PM EDT Patient asking for Echo and Zio results. Giulia Vo RN documented in this encounterFairfield Medical Center06-27-2023 History of Present illness Narrative* Larry Joseph APRN.ELECTRIC STOVE MECHANIC - 12/24/2022 2:54 PM EDT Subjective Sore Throat Associated symptoms include congestion, [...] F) Resp 16 Ht 188 cm (6' 2) Wt 134.7 kg (297 lb) LMP 11/14/2022 [...] 1 tablet by mouth as needed for upto 30 days. Take at approx. 3-4 pm. [...] -10th of each month^Disp: 10 tablet^Rfl: 11 amoxicillin (AMOXIL) 875 mg tablet^Take 1 tablet by mouth twice daily for 7 days.^Disp: 14 tablet^Rfl: 0 amphetamine-dextroamphetamine XR (ADDERALL XR) 30 mg biphasic capsule^Take 1 capsule by mouth everymorning for 30 days.^Disp: 30 capsule^Rfl: 0 fluconazole [...] tab^Take 1 tablet by mouth once daily.^Disp: 30tablet^Rfl: 12 FAMILY HISTORY Problem Relation Age of [...] analgesia. - Discussed expected course of illness Larry Joseph APRN.CNP documented in this encounterFairfield Medical Center06-27-2023 Instructions* Patient Instructions* Larry Joseph APRN.CNP - 12/24/2022 2:53 PM EDT [...] analgesia. - Discussed expected course of illness Larry Joseph APRN.ELECTRIC STOVE MECHANIC OTITIS MEDIA GENERAL INFORMATION: Otitis media is [...] even if the symptoms go away. 2. Oajz-fsn-yhqydwk pain medication may be taken or other [...] the most common cause of sore throat, bacteriaare another common cause. Bacteria and viruses are spread from one person to another through hand contact. Hands get contaminated when the sick individual touches their nose or mouth and then touchesanother person directly (mibx-je-ykyo contact) or indirectly (gcyn-ti-oxlsmw, such as doorknob, telephone, toys). It is difficult to determine the cause of sore throat based upon symptoms alone; an examination andlaboratory test are recommended in most cases Viruses - There are many viruses that can cause pain and swelling of the throat. The most common include viruses that cause sore throat as part of an upper respiratory infection, such as the common cold. Other viruses that cause sore throat include influenza, adenovirus, and Rachael-Stephenson virus (thecause of mononucleosis). Symptoms - Symptoms that may [...] in the back or sides of the throat,small red spots on the roof of the [...] than 1 year may be fussy and havea decreased appetite and low-grade fever. SORE THROAT [...] is important for the child to finish theentire course of treatment (usually 10 days). If [...] reduce the risk of dehydration, parents can offerwarm or cold liquids. (See 'Other interventions' below.) Signs and symptoms of mild dehydration include a slightly dry mouth, increased thirst, and decreased urine output (one wet diaper or void in six hours). Signs of moderate or severe dehydration include decreased urine output (less than one wet diaper or void in six hours), lack of tears when crying,dry mouth, and sunken eyes. A child who is moderately or severely dehydrated should be evaluated by a healthcare provider as soon as possible to determine if treatment is needed. Oral rinses- Salt-water gargles are an old stand-by for relief of throat pain. It is not clear if this treatmentis effective, but it is unlikely to be [...] hard candy. We do not recommend throat lozengesfor children, especially children younger than 3 to [...] fingernails, between the fingers, and the wrists. Handsshould be rinsed thoroughly, and dried with a [...] secretions and has the advantage of not co ntaminating the hands. WHEN TO SEEK HELP - [...] every four months on our web site ([email or web address]). Information below was obtained from Up to date Last literature review version 19.2: October 2010 This topic last updated: February 14, 2010 documented in this encounterFairfield Medical Center05-12-2023 Instructions* Patient Instructions* Hailey Jett MD - 11/08/2022 4:25 PM EDT [...] apnea may include positive airway pressure (PAP) therapy,oral appliance, hypoglossal nerve stimulator, nose/throat surgery, weight loss, side sleeping, or avoidance of medications or substances that can relax the airway muscles (alcohol, benzodiazepines, and opioids). eXciteOSA is a prescribed device worn in your mouth for 20 minutes a day that has been clinically proven to treat mild obstructive sleep apnea. More at: [employer].Resource Data - PAP titration to evaluate for effectiveness [...] the central scheduling system for the [facility] at [phone]. [employer] now offers direct scheduling for patients to schedule appointments. Virtual visits are also available. If not covered by your insurance, there is a 35% discount. Please contact your insurance to determine coverage. Call the office at [phone], option #5 for questions. May use Message My Doc through My Chart for questions. May use My Chart Refills for refill requests. [facility] website: [email or web address] documented in this encounterFairfield Medical Center05-12-2023 History of Present illness Narrative* Hailey Jett MD - 11/08/2022 4:18 PM EDT Images from the original note were not included. [facility] Follow up/ Established patient visit Date of last visit : 09/06/2022 I have communicated my name and active licensure. The patient's identity and physical location wereverified at the time of this visit. Either the patient or their legal territory service representative has been informed of the risks and benefits of -- and alternatives to -- treatment through a remote evaluation andconsents to proceed with the evaluation remotely. Interval [...] or near accidents due to drowsy drivin [place] Sleepiness Scale 09/04/2022 11/08/2022 Score 9 (No [...] population = 50. Five points is a clinicallymeaningful difference.) 11/08/2022 Physical T-Score 50.8 Mental T-Score [...] 1 tablet by mouth as needed for upto 30 days. Take at approx. 3-4 pm. [...] 1 tablet by mouth as needed for upto 30 days. Take at approx. 3-4 pm. Do not start before January 08, 2023.^Disp: 30 tablet^Rfl: 0 [START ON 12/09/2022] methylphenidate (RITALIN) 20 mg tablet^Take 1 tablet by mouth as needed for upto 30 days. Take at approx. 3-4 pm. [...] tab^Take 1 tablet by mouth once daily.^Disp: 30tablet^Rfl: 12 medroxyPROGESTERone (PROVERA) 10 mg tablet^Take 1 tablet by mouth once daily. for the -10th of each month^Disp: 10 tablet^Rfl: 11 Prior Hypersomnia/Narcolepsy Medications (20 years) Some values may be hidden. Unless noted otherwise, only the newest values recorded on each date aredisplayed. Also, latest columns from 11/09/2012 - 11/09/2022 [...] hr capsule Dose: 40 mg DAILY Starting date:09/09/2015 Ending date: 09/13/2015 (Discontinued) amphetamine-dextroamphetamine XR (ADDERALL XR) 20 mg 24 hr capsule Dose: 40 mg DAILY Starting date:08/11/2015 Ending date: 09/13/2015 (Discontinued) amphetamine-dextroamphetamine XR (ADDERALL XR) 5 mg ORAL 24 hr capsule Dose: 5 mg EVERY MORNING Starting date: 06/05/2011 Ending date: 06/27/2011 (Discontinued) amphetamine-dextroamphetamine XR (ADDERALL XR) 5 mg 24 hr capsule Dose: 5 mg EVERY MORNING Startingdate: 10/24/2014 Ending date: 02/16/2015 (Discontinued) amphetamine-dextroamphetamine XR (ADDERALL XR) 5 mg 24 hr capsule Dose: 5 mg EVERY MORNING Startingdate: 11/14/2014 Ending date: 02/16/2015 (Discontinued) amphetamine-dextroamphetamine XR (ADDERALL XR) 5 mg 24 hr capsule Dose: 5 mg EVERY MORNING Startingdate: 12/15/2014 Ending date: 02/16/2015 (Discontinued) amphetamine-dextroamphetamine XR (ADDERALL XR) 5 mg 24 hr capsule Dose: 5 mg EVERY MORNING Startingdate: 01/14/2015 Ending date: 05/12/2015 (Discontinued) amphetamine-dextroamphetamine XR (ADDERALL XR) 5 mg 24 hr capsule Dose: 5 mg EVERY MORNING Startingdate: 02/17/2015 Ending date: 05/12/2015 (Discontinued) amphetamine-dextroamphetamine XR (ADDERALL XR) 5 mg 24 hr capsule Dose: 5 mg EVERY MORNING Startingdate: 04/18/2015 Ending date: 05/16/2015 (Discontinued) amphetamine-dextroamphetamine XR (ADDERALL XR) 5 mg 24 hr capsule Dose: 5 mg EVERY MORNING Startingdate: 03/19/2015 Ending date: 05/10/2015 (Discontinued) amphetamine-dextroamphetamine XR (ADDERALL XR) 5 mg 24 hr capsule Dose: 5 mg EVERY MORNING Startingdate: 05/16/2015 Ending date: 09/13/2015 (Discontinued) atomoxetine (STRATTERA) 40 mg capsule Dose: 40 mg DAILY (NOTE: This is a starter dose. Take 1 dailyfor the first 3 days.) Starting date: 07/31/2012 [...] po approx. 3-4 pm prn Starting date: 04/16/2010Ending date: 05/10/2010 (Discontinued) methylphenidate (RITALIN) 20 mg ORAL tablet Dose: 1 po approx. 3-4 pm prn Starting date: 05/10/2010Ending date: 06/05/2010 (Discontinued) methylphenidate (RITALIN) 20 mg ORAL tablet Dose: 1 po approx. 3-4 pm prn Starting date: 06/05/2010 Ending date: 06/29/2010 (Discontinued) methylphenidate (RITALIN) 20 mg ORAL tablet Dose: 1 po approx. 3-4 pm prn Starting date: 06/29/2010Ending date: 07/26/2010 (Discontinued) methylphenidate (RITALIN) 20 mg [...] NEEDED Take at approx. 3-4 pm. Starting date:09/26/2012 Ending date: 10/24/2012 (Discontinued) methylphenidate (RITALIN) 20 mg tablet Dose: 20 mg NEEDED Take at approx. 3-4 pm. Starting date:10/24/2012 Ending date: 11/21/2012 (Discontinued) methylphenidate (RITALIN) 20 mg tablet Dose: 20 mg NEEDED Take at approx. 3-4 pm. Starting date:11/21/2012 Ending date: 12/22/2012 (Discontinued) methylphenidate (RITALIN) 20 mg tablet Dose: 20 mg NEEDED Take at approx. 3-4 pm. Starting date:12/22/2012 Ending date: 01/19/2013 (Discontinued) methylphenidate (RITALIN) 20 mg tablet Dose: 20 mg NEEDED Take at approx. 3-4 pm. Starting date:01/19/2013 Ending date: 02/18/2013 (Discontinued) methylphenidate (RITALIN) 20 mg tablet Dose: 20 mg NEEDED Take at approx. 3-4 pm. Starting date:02/18/2013 Ending date: 03/22/2013 (Discontinued) methylphenidate (RITALIN) 20 mg tablet Dose: 20 mg NEEDED Take at approx. 3-4 pm. Starting date:03/22/2013 Ending date: 04/19/2013 (Discontinued) methylphenidate (RITALIN) 20 mg tablet Dose: 20 mg NEEDED Take at approx. 3-4 pm. Starting date:04/19/2013 Ending date: 05/18/2013 (Discontinued) methylphenidate (RITALIN) 20 mg tablet Dose: 20 mg NEEDED Take at approx. 3-4 pm. Starting date:05/18/2013 Ending date: 06/15/2013 (Discontinued) methylphenidate (RITALIN) 20 mg tablet Dose: 20 mg NEEDED Take at approx. 3-4 pm. Starting date:06/15/2013 Ending date: 07/14/2013 (Discontinued) methylphenidate (RITALIN) 20 mg tablet Dose: 20 mg NEEDED Take at approx. 3-4 pm. Starting date:07/14/2013 Ending date: 08/12/2013 (Discontinued) methylphenidate (RITALIN) 20 mg tablet Dose: 20 mg NEEDED Take at approx. 3-4 pm. Starting date:08/12/2013 Ending date: 09/07/2013 (Discontinued) methylphenidate (RITALIN) 20 mg tablet Dose: 20 mg NEEDED Take at approx. 3-4 pm. Starting date:09/07/2013 Ending date: 10/06/2013 (Discontinued) methylphenidate (RITALIN) 20 mg tablet Dose: 20 mg NEEDED Take at approx. 3-4 pm. Starting date:10/06/2013 Ending date: 11/03/2013 (Discontinued) methylphenidate (RITALIN) 20 mg tablet Dose: 20 mg NEEDED Take at approx. 3-4 pm. Starting date:11/03/2013 Ending date: 12/02/2013 (Discontinued) methylphenidate (RITALIN) 20 mg tablet Dose: 20 mg NEEDED Take at approx. 3-4 pm. Starting date:12/02/2013 Ending date: 12/29/2013 (Discontinued) methylphenidate (RITALIN) 20 mg tablet Dose: 20 mg NEEDED Take at approx. 3-4 pm. Starting date:12/29/2013 Ending date: 01/28/2014 (Discontinued) methylphenidate (RITALIN) 20 mg tablet Dose: 20 mg NEEDED Take at approx. 3-4 pm. Starting date:01/28/2014 Ending date: 03/01/2014 (Discontinued) methylphenidate (RITALIN) 20 mg tablet Dose: 20 mg NEEDED Take at approx. 3-4 pm. Starting date:03/01/2014 Ending date: 03/28/2014 (Discontinued) methylphenidate (RITALIN) 20 mg tablet Dose: 20 mg NEEDED Take at approx. 3-4 pm. Starting date:03/28/2014 Ending date: 04/22/2014 (Discontinued) methylphenidate (RITALIN) 20 mg tablet Dose: 20 mg NEEDED Take at approx. 3-4 pm. Starting date:04/22/2014 Ending date: 06/09/2014 (Discontinued) methylphenidate (RITALIN) 20 mg tablet Dose: 20 mg NEEDED Take at approx. 3-4 pm. Starting date:04/22/2014 Ending date: 04/22/2014 (Discontinued) methylphenidate (RITALIN) 20 mg tablet Dose: 20 mg NEEDED Take at approx. 3-4 pm. Starting date:04/22/2014 Ending date: 04/22/2014 (Discontinued) methylphenidate (RITALIN) 20 mg tablet Dose: 20 mg NEEDED Take at approx. 3-4 pm. Starting date:06/22/2014 Ending date: 06/09/2014 (Discontinued) methylphenidate (RITALIN) 20 mg tablet Dose: 20 mg NEEDED Take at approx. 3-4 pm. Starting date:05/23/2014 Ending date: 07/21/2014 (Discontinued) methylphenidate (RITALIN) 20 mg tablet Dose: 20 mg NEEDED Take at approx. 3-4 pm. Starting date:07/21/2014 Ending date: 10/18/2014 (Discontinued) methylphenidate (RITALIN) 20 mg tablet Dose: 20 mg NEEDED Take at approx. 3-4 pm. Starting date:08/22/2014 Ending date: 10/18/2014 (Discontinued) methylphenidate (RITALIN) 20 mg tablet Dose: 20 mg NEEDED Take at approx. 3-4 pm. Starting date:09/19/2014 Ending date: 10/18/2014 (Discontinued) methylphenidate (RITALIN) 20 mg tablet Dose: 20 mg NEEDED Take at approx. 3-4 pm. Starting date:10/18/2014 Ending date: 11/17/2014 (Discontinued) methylphenidate (RITALIN) 20 mg tablet Dose: 20 mg NEEDED Take at approx. 3-4 pm. Starting date:01/18/2015 Ending date: 02/16/2015 (Discontinued) methylphenidate (RITALIN) 20 mg tablet Dose: 20 mg NEEDED Take at approx. 3-4 pm. Starting date:12/19/2014 Ending date: 02/16/2015 (Discontinued) methylphenidate (RITALIN) 20 mg tablet Dose: 20 mg NEEDED Take at approx. 3-4 pm. Starting date:11/18/2014 Ending date: 02/16/2015 (Discontinued) methylphenidate (RITALIN) 20 mg tablet Dose: 20 mg NEEDED Take at approx. 3-4 pm. Starting date:02/17/2015 Ending date: 05/16/2015 (Discontinued) methylphenidate (RITALIN) 20 mg tablet Dose: 20 mg NEEDED Take at approx. 3-4 pm. Starting date:03/19/2015 Ending date: 05/12/2015 (Discontinued) methylphenidate (RITALIN) 20 mg tablet Dose: 20 mg NEEDED Take at approx. 3-4 pm. Starting date:04/18/2015 Ending date: 05/12/2015 (Discontinued) methylphenidate (RITALIN) 20 mg tablet Dose: 20 mg NEEDED Take at approx. 3-4 pm. Starting date:05/16/2015 Ending date: 06/14/2015 (Discontinued) methylphenidate (RITALIN) 20 mg tablet Dose: 20 mg NEEDED Take at approx. 3-4 pm. Starting date:06/14/2015 Ending date: 07/11/2015 (Discontinued) methylphenidate (RITALIN) 20 mg tablet Dose: 20 mg NEEDED Take at approx. 3-4 pm. Starting date:07/11/2015 Ending date: 10/11/2015 (Discontinued) methylphenidate (RITALIN) 20 mg tablet Dose: 20 mg NEEDED Take at approx. 3-4 pm. Starting date:09/09/2015 Ending date: 10/11/2015 (Discontinued) methylphenidate (RITALIN) 20 mg tablet Dose: 20 mg NEEDED Take at approx. 3-4 pm. Starting date:08/11/2015 Ending date: 10/11/2015 (Discontinued) methylphenidate (RITALIN) 20 mg tablet Dose: 20 mg NEEDED Take at approx. 3-4 pm. Starting date:11/10/2015 Ending date: 12/05/2015 (Discontinued) methylphenidate (RITALIN) 20 mg tablet Dose: 20 mg NEEDED Take at approx. 3-4 pm. Starting date:12/11/2015 Ending date: 03/12/2016 (Discontinued) methylphenidate (RITALIN) 20 mg tablet Dose: 20 mg NEEDED Take at approx. 3-4 pm. Starting date:10/11/2015 Ending date: 03/12/2016 (Discontinued) methylphenidate (RITALIN) 20 mg tablet Dose: 20 mg NEEDED Take at approx. 3-4 pm. Starting date:01/09/2016 Ending date: 02/09/2016 (Discontinued) methylphenidate (RITALIN) 20 mg tablet Dose: 20 mg NEEDED Take at approx. 3-4 pm. Starting date:02/09/2016 Ending date: 03/12/2016 (Discontinued) methylphenidate (RITALIN) 20 mg tablet Dose: 20 mg NEEDED Take at approx. 3-4 pm. Starting date:05/09/2016 Ending date: 06/07/2016 (Discontinued) methylphenidate (RITALIN) 20 mg tablet Dose: 20 mg NEEDED Take at approx. 3-4 pm. Starting date:04/10/2016 Ending date: 06/07/2016 (Discontinued) methylphenidate (RITALIN) 20 mg tablet Dose: 20 mg NEEDED Take at approx. 3-4 pm. Starting date:03/12/2016 Ending date: 06/07/2016 (Discontinued) methylphenidate (RITALIN) 20 mg tablet Dose: 20 mg NEEDED Take at approx. 3-4 pm. Starting date:06/07/2016 Ending date: 07/09/2016 (Discontinued) methylphenidate (RITALIN) 20 mg tablet Dose: 20 mg NEEDED between 3-4 pm Starting date: 08/08/2016Ending date: 09/09/2016 (Discontinued) methylphenidate (RITALIN) 20 mg tablet Dose: 20 mg NEEDED between 3-4 pm Starting date: 09/07/2016 Ending date: 09/09/2016 (Discontinued) methylphenidate (RITALIN) 20 mg tablet Dose: 20 mg NEEDED Take at approx. 3-4 pm. Starting date:07/09/2016 Ending date: 09/09/2016 (Discontinued) methylphenidate (RITALIN) 20 mg tablet Dose: 20 mg NEEDED Take at approx. 3-4 pm. Starting date:11/09/2016 Ending date: 12/09/2016 (Discontinued) methylphenidate (RITALIN) 20 mg tablet Dose: 20 mg NEEDED Take at approx. 3-4 pm. Starting date:10/10/2016 Ending date: 12/09/2016 (Discontinued) methylphenidate (RITALIN) 20 mg tablet Dose: 20 mg NEEDED Take at approx. 3-4 pm. Starting date:09/09/2016 Ending date: 12/09/2016 (Discontinued) methylphenidate (RITALIN) 20 mg tablet Dose: 20 mg NEEDED Take at approx. 3-4 pm. Starting date:12/09/2016 Ending date: 01/07/2017 (Discontinued) methylphenidate (RITALIN) 20 mg tablet Dose: 20 mg NEEDED Take at approx. 3-4 pm. Starting date:01/07/2017 Ending date: 02/03/2017 (Discontinued) methylphenidate (RITALIN) 20 mg tablet Dose: 20 mg NEEDED Take at approx. 3-4 pm. Starting date:02/03/2017 Ending date: 03/14/2017 (Discontinued) methylphenidate (RITALIN) 20 mg tablet Dose: 20 mg NEEDED Take at approx. 3-4 pm. Starting date:05/14/2017 Ending date: 06/11/2017 (Discontinued) methylphenidate (RITALIN) 20 mg tablet Dose: 20 mg NEEDED Take at approx. 3-4 pm. Starting date:04/13/2017 Ending date: 06/11/2017 (Discontinued) methylphenidate (RITALIN) 20 mg tablet Dose: 20 mg NEEDED Take at approx. 3-4 pm. Starting date:03/14/2017 Ending date: 06/11/2017 (Discontinued) methylphenidate (RITALIN) 20 mg tablet Dose: 20 mg NEEDED Take at approx. 3-4 pm. Starting date:06/11/2017 Ending date: 09/08/2017 (Discontinued) methylphenidate (RITALIN) 20 mg tablet Dose: 20 mg NEEDED Take at approx. 3-4 pm. Starting date:08/10/2017 Ending date: 09/08/2017 (Discontinued) methylphenidate (RITALIN) 20 mg tablet Dose: 20 mg NEEDED Take at approx. 3-4 pm. Starting date:07/11/2017 Ending date: 09/08/2017 (Discontinued) methylphenidate (RITALIN) 20 mg tablet Dose: 20 mg NEEDED Take at approx. 3-4 pm. Starting date:09/08/2017 Ending date: 09/30/2017 (Discontinued) methylphenidate (RITALIN) 20 mg tablet Dose: 20 mg NEEDED Take at approx. 3-4 pm. Starting date:09/30/2017 Ending date: 11/07/2017 (Discontinued) methylphenidate (RITALIN) 20 mg tablet Dose: 20 mg NEEDED Take at approx. 3-4 pm. Starting date:11/07/2017 Ending date: 12/08/2017 (Discontinued) methylphenidate (RITALIN) 20 mg tablet Dose: 20 mg NEEDED Take at approx. 3-4 pm. Starting date:12/08/2017 Ending date: 03/04/2018 (Discontinued) methylphenidate (RITALIN) 20 mg tablet Dose: 20 mg NEEDED Take at approx. 3-4 pm. Starting date:01/07/2018 Ending date: 03/04/2018 (Discontinued) methylphenidate (RITALIN) 20 mg tablet Dose: 20 mg NEEDED Take at approx. 3-4 pm. Starting date:02/06/2018 Ending date: 03/04/2018 (Discontinued) methylphenidate (RITALIN) 20 mg tablet Dose: 20 mg NEEDED Take at approx. 3-4 pm. Starting date:05/04/2018 Ending date: 05/28/2018 (Discontinued) methylphenidate (RITALIN) 20 mg tablet Dose: 20 mg NEEDED Take at approx. 3-4 pm. Starting date:04/03/2018 Ending date: 03/25/2018 (Discontinued) methylphenidate (RITALIN) 20 mg tablet Dose: 20 mg NEEDED Take at approx. 3-4 pm. Starting date:03/04/2018 Ending date: 03/25/2018 (Discontinued) methylphenidate (RITALIN) 20 mg tablet Dose: 20 mg NEEDED Take at approx. 3-4 pm. Starting date:05/28/2018 Ending date: 06/18/2018 (Discontinued) methylphenidate (RITALIN) 20 mg tablet Dose: 20 mg NEEDED Take at approx. 3-4 pm. Starting date:06/18/2018 Ending date: 07/22/2018 (Discontinued) methylphenidate (RITALIN) 20 mg tablet Dose: 20 mg NEEDED Take at approx. 3-4 pm. Starting date:07/23/2018 Ending date: 08/20/2018 (Discontinued) methylphenidate (RITALIN) 20 mg tablet Dose: 20 mg NEEDED Take at approx. 3-4 pm. Starting date:08/20/2018 Ending date: 09/08/2018 (Discontinued) methylphenidate (RITALIN) 20 mg tablet Dose: 20 mg NEEDED Take at approx. 3-4 pm. Starting date:09/08/2018 Ending date: 10/19/2018 (Discontinued) methylphenidate (RITALIN) 20 mg tablet Dose: 20 mg NEEDED Take at approx. 3-4 pm. Starting date:10/21/2018 Ending date: 11/17/2018 (Discontinued) methylphenidate (RITALIN) 20 mg tablet Dose: 20 mg NEEDED Take at approx. 3-4 pm. Starting date:11/17/2018 Ending date: 12/18/2018 (Discontinued) methylphenidate (RITALIN) 20 mg tablet Dose: 20 mg NEEDED Take at approx. 3-4 pm. Starting date:12/18/2018 Ending date: 01/19/2019 (Discontinued) methylphenidate (RITALIN) 20 mg tablet Dose: 20 mg NEEDED Take at approx. 3-4 pm. Starting date:01/19/2019 Ending date: 02/17/2019 (Discontinued) methylphenidate (RITALIN) 20 mg tablet Dose: 20 mg NEEDED Take at approx. 3-4 pm. Starting date:02/18/2019 Ending date: 03/18/2019 (Discontinued) methylphenidate (RITALIN) 20 mg tablet Dose: 20 mg NEEDED Take at approx. 3-4 pm. Starting date:03/18/2019 Ending date: 04/13/2019 (Discontinued) methylphenidate (RITALIN) 20 mg tablet Dose: 20 mg NEEDED Take at approx. 3-4 pm. Starting date:04/13/2019 Ending date: 07/15/2019 (Discontinued) methylphenidate (RITALIN) 20 mg tablet Dose: 20 mg NEEDED Take at approx. 3-4 pm. Starting date:05/17/2019 Ending date: 06/16/2019 (Discontinued) methylphenidate (RITALIN) 20 mg tablet Dose: 20 mg NEEDED Take at approx. 3-4 pm. Starting date:06/17/2019 Ending date: 07/15/2019 (Discontinued) methylphenidate (RITALIN) 20 mg tablet Dose: 20 mg NEEDED Take at approx. 3-4 pm. Starting date:07/15/2019 Ending date: 08/20/2019 (Discontinued) methylphenidate (RITALIN) 20 mg tablet Dose: 20 mg NEEDED Take at approx. 3-4 pm. Starting date:08/20/2019 Ending date: 09/17/2019 (Discontinued) methylphenidate (RITALIN) 20 mg tablet Dose: 20 mg NEEDED Take at approx. 3-4 pm. Starting date:09/17/2019 Ending date: 10/19/2019 (Discontinued) methylphenidate (RITALIN) 20 mg tablet Dose: 20 mg NEEDED Take at approx. 3-4 pm. Starting date:10/19/2019 Ending date: 11/17/2019 (Discontinued) methylphenidate (RITALIN) 20 mg tablet Dose: 20 mg NEEDED Take at approx. 3-4 pm. Starting date:11/18/2019 Ending date: 12/22/2019 (Discontinued) methylphenidate (RITALIN) 20 mg tablet Dose: 20 mg NEEDED Take at approx. 3-4 pm. Starting date:12/23/2019 Ending date: 01/28/2020 (Discontinued) methylphenidate (RITALIN) 20 mg tablet Dose: 20 mg NEEDED Take at approx. 3-4 pm. Starting date:01/28/2020 Ending date: 03/01/2020 (Discontinued) methylphenidate (RITALIN) 20 mg tablet Dose: 20 mg NEEDED Take at approx. 3-4 pm. Starting date:03/02/2020 Ending date: 04/07/2020 (Discontinued) methylphenidate (RITALIN) 20 mg tablet Dose: 20 mg NEEDED Take at approx. 3-4 pm. Starting date:04/07/2020 Ending date: 05/12/2020 (Discontinued) methylphenidate (RITALIN) 20 mg tablet Dose: 20 mg NEEDED Take at approx. 3-4 pm. Starting date:05/12/2020 Ending date: 06/16/2020 (Discontinued) methylphenidate (RITALIN) 20 mg tablet Dose: 20 mg NEEDED Take at approx. 3-4 pm. Starting date:06/16/2020 Ending date: 07/21/2020 (Discontinued) methylphenidate (RITALIN) 20 mg tablet Dose: 20 mg NEEDED Take at approx. 3-4 pm. Starting date:07/21/2020 Ending date: 08/29/2020 (Discontinued) methylphenidate (RITALIN) 20 mg tablet Dose: 20 mg NEEDED Take at approx. 3-4 pm. Starting date:08/29/2020 Ending date: 10/10/2020 (Discontinued) methylphenidate (RITALIN) 20 mg tablet Dose: 20 mg NEEDED Take at approx. 3-4 pm. Starting date:10/10/2020 Ending date: 11/18/2020 (Discontinued) methylphenidate (RITALIN) 20 mg tablet Dose: 20 mg NEEDED Take at approx. 3-4 pm. Starting date:11/20/2020 Ending date: 2020 (Discontinued) methylphenidate (RITALIN) 20 mg tablet Dose: 20 mg NEEDED Take at approx. 3-4 pm. Starting date:01/02/2021 Ending date: 02/10/2021 (Discontinued) methylphenidate (RITALIN) 20 mg tablet Dose: 20 mg NEEDED Take at approx. 3-4 pm. Starting date:02/13/2021 Ending date: 03/17/2021 (Discontinued) methylphenidate (RITALIN) 20 mg tablet Dose: 20 mg NEEDED Take at approx. 3-4 pm. Starting date:03/17/2021 Ending date: 05/03/2021 (Discontinued) methylphenidate (RITALIN) 20 mg tablet Dose: 20 mg NEEDED Take at approx. 3-4 pm. Starting date:05/03/2021 Ending date: 06/13/2021 (Discontinued) methylphenidate (RITALIN) 20 mg tablet Dose: 20 mg NEEDED Take at approx. 3-4 pm. Starting date:06/14/2021 Ending date: 07/12/2021 (Discontinued) methylphenidate (RITALIN) 20 mg tablet Dose: 20 mg NEEDED Take at approx. 3-4 pm. Starting date:07/12/2021 Ending date: 08/14/2021 (Discontinued) methylphenidate (RITALIN) 20 mg tablet Dose: 20 mg NEEDED Take at approx. 3-4 pm. Starting date:08/14/2021 Ending date: 09/11/2021 (Discontinued) methylphenidate (RITALIN) 20 mg tablet Dose: 20 mg NEEDED Take at approx. 3-4 pm. Starting date:09/11/2021 Ending date: 10/09/2021 (Discontinued) methylphenidate (RITALIN) 20 mg tablet Dose: 20 mg NEEDED Take at approx. 3-4 pm. Starting date:10/09/2021 Ending date: 11/06/2021 (Discontinued) methylphenidate (RITALIN) 20 mg tablet Dose: 20 mg NEEDED Take at approx. 3-4 pm. Starting date:11/07/2021 Ending date: 12/07/2021 (Discontinued) methylphenidate (RITALIN) 20 mg tablet Dose: 20 mg NEEDED Take at approx. 3-4 pm. Starting date:12/07/2021 Ending date: 01/04/2022 (Discontinued) methylphenidate (RITALIN) 20 mg tablet Dose: 20 mg NEEDED Take at approx. 3-4 pm. Starting date:01/04/2022 Ending date: 01/30/2022 (Discontinued) methylphenidate (RITALIN) 20 mg tablet Dose: 20 mg NEEDED Take at approx. 3-4 pm. Starting date:01/30/2022 Ending date: 03/05/2022 (Discontinued) methylphenidate (RITALIN) 20 mg tablet Dose: 20 mg NEEDED Take at approx. 3-4 pm. Starting date:03/05/2022 Ending date: 04/04/2022 (Discontinued) methylphenidate (RITALIN) 20 mg tablet Dose: 20 mg NEEDED Take at approx. 3-4 pm. Starting date:04/04/2022 Ending date: 05/09/2022 (Discontinued) methylphenidate (RITALIN) 20 mg tablet Dose: 20 mg NEEDED Take at approx. 3-4 pm. Starting date:05/09/2022 Ending date: 06/06/2022 (Discontinued) methylphenidate (RITALIN) 20 mg tablet Dose: 20 mg NEEDED Take at approx. 3-4 pm. Starting date:06/06/2022 Ending date: 07/03/2022 (Discontinued) methylphenidate (RITALIN) 20 mg tablet Dose: 20 mg NEEDED Take at approx. 3-4 pm. Starting date:07/04/2022 Ending date: 08/05/2022 (Discontinued) methylphenidate (RITALIN) 20 mg tablet Dose: 20 mg NEEDED Take at approx. 3-4 pm. Starting date:08/06/2022 Ending date: 09/09/2022 (Discontinued) methylphenidate (RITALIN) 20 mg tablet Dose: 20 mg NEEDED Take at approx. 3-4 pm. Starting date:09/10/2022 Ending date: 10/09/2022 (Discontinued) methylphenidate (RITALIN) 20 mg tablet Dose: 20 mg NEEDED Take at approx. 3-4 pm. Starting date:10/10/2022 Ending date: 10/28/2022 (Discontinued) methylphenidate (RITALIN) 20 mg tablet Dose: 20 mg NEEDED Take at approx. 3-4 pm. Starting date:11/09/2022 Ending date: 12/09/2022 methylphenidate (RITALIN) 20 mg tablet Dose: 20 mg NEEDED Take at approx. 3-4 pm. Starting date:01/08/2023 Ending date: 02/07/2023 methylphenidate (RITALIN) 20 mg tablet Dose: 20 mg NEEDED Take at approx. 3-4 pm. Starting date:12/09/2022 Ending date: 01/08/2023 METHYLPHENIDATE 10 MG TAB [...] approx. 3-4 pm prn Starting date: 07/05/2009 Endingdate: 08/03/2009 (Discontinued) methylphenidate hcl(RITALIN 20 MG TAB) Dose: 1 po approx. 3-4 pm prn Starting date: 08/03/2009 Endingdate: 08/30/2009 (Discontinued) methylphenidate hcl(RITALIN 20 MG TAB) Dose: 1 po approx. 3-4 pm prn Starting date: 08/30/2009 Endingdate: 09/25/2009 (Discontinued) methylphenidate hcl(RITALIN 20 MG TAB) [...] approx. 3-4 pm prn Starting date: 02/05/2010 Endingdate: 03/01/2010 (Discontinued) methylphenidate hcl(RITALIN 20 MG TAB) Dose: 1 po approx. 3-4 pm prn Starting date: 03/01/2010 Endingdate: 03/20/2010 (Discontinued) methylphenidate hcl(RITALIN 20 MG TAB) [...] noon and then 4 pm Starting date: 10/31/2005Ending date: 12/13/2005 (Discontinued) RITALIN 10 MG TAB [...] 2 tablet at 3pm prn Starting date: 01/30/2007Ending date: 02/28/2007 (Discontinued) methylphenidate (RITALIN) 5 mg ORAL Tab Dose: Take 1 or 2 tablet at 3pm prn Starting date: 02/28/2007Ending date: 03/26/2007 (Discontinued) methylphenidate (RITALIN) 5 mg [...] 2 tablet at 3pm prn Starting date: 06/25/2007Ending date: 07/22/2007 (Discontinued) methylphenidate hcl(RITALIN 5 MG TAB) Dose: Take 1 or 2 tablet at 3pm prn Starting date: 06/25/2007Ending date: 07/25/2007 methylphenidate hcl(RITALIN 5 MG TAB) [...] 2 tablet at 3pm prn Starting date: 06/22/2008Ending date: 07/30/2008 (Discontinued) methylphenidate hcl(RITALIN 5 MG [...] the newest values recorded on each date aredisplayed. RLS Medications HYDROcodone 5 mg - acetaminophen 325 mg tablet (NORCO) Dose: 1-2 tablet ONCE Give 1 tab for moderate pain Give 2 tabs for severe pain Starting date: 07/05/2022 Ending date: 07/05/2022 (Discontinued) morphine 4 mg injection Dose: 4 mg X (PACU ONLY) PRN 2nd Line Therapy for Breakthrough Pain MaximumTOTAL DOSE from ALL orders = 0.15 mg/kg, not to exceed 10 mg May give every 10 minutes as needed Starting date: 05/12/2015 Ending date: 05/12/2015 (Discontinued) Prior Insomnia Medications (last 20 years) Some values may be hidden. Unless noted otherwise, only the newest values recorded on each date aredisplayed. Insomnia Medications ESCITALOPRAM OXALATE (LEXAPRO ORAL) Dose: [...] risk of CVA with moderate or severe ESTEBAN,would be advised to diagnose and treat sleep [...] to ensure your preferred time and location. Hailey Jett MD Staff, [facility] Appt: [phone] Mail: [address] [place] [address] Activity Duration Current session 21 minutes Total time: 21 minutes* *Based only on time spent in the patient's chart [facility] Miscellaneous Notes* Result Encounter Note - 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 APRN.CNS - 11/05/2022 4:29 PM EDT Spirometry is normal, not a significant bronchodilator response [facility] History of Present illness Narrative* GIRMA Alfredo - 11/05/2022 11:31 AM EDT PULM FUNCTION SMARTBLOCK: Provider: 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 APRN.[employer] Assisting Tech: GIRMA Alfredo Spirometry w/BD: 1 documented in this [facility] History of Present illness Narrative* Rebeca Russell APRN.[employer]CH[employer]IC - 11/04/2022 12:44 PM EDT This note was created using NoteWriter. Subjective [...] history is provided by the patient. No sales process manager was used. Cough This is a new problem. The current episode started more than 1 week ago. The problem occurs constantly. The problem has been gradually worsening. The cough is Non-productive. There has been no fever.Associated symptoms include chills, ear congestion, ear pain, headaches, rhinorrhea and sore throat. Pertinent negatives include no chest pain, no sweats, no weight loss, no myalgias, no shortness ofbreath, no wheezing and no eye redness. Treatments [...] 1 tablet by mouth as needed for upto 30 days. Take at approx. 3-4 pm. [...] 1 tablet by mouth as needed for upto 30 days. Take at approx. 3-4 pm. Do not start before January 08, 2023.^Disp: 30 tablet^Rfl: 0 [START ON 12/09/2022] methylphenidate (RITALIN) 20 mg tablet^Take 1 tablet by mouth as needed for upto 30 days. Take at approx. 3-4 pm. Do not start before December 09, 2022.^Disp: 30 tablet^Rfl: 0 omeprazole (PRILOSEC) 20 mg capsule^Take 1 capsule by mouth once daily.^Disp: 30 capsule^Rfl: 5 PNV No.40-Iron Fum-FA Cmb No.1 (PNV-SELECT) 27-1 mg tab^Take 1 tablet by mouth once daily.^Disp: 30tablet^Rfl: 12 medroxyPROGESTERone (PROVERA) 10 mg tablet^Take 1 [...] days if symptoms persist or worsen. Rebeca Russell APRN.[facility] documented in this encounterFair[facility]05-04-2023 NoteHNO ID: [id number] Author: IGNACIO Ariza Service: Radiology Author Type: Bag Maker Type: Progress Notes Filed: 10/31/2022 1:31 PM [...] BY: IGNACIO Ariza October 31, 2022 1:31 PMFostoria City [id number] Miscellaneous Notes* Addendum Note - 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 APRN.CNS - 10/28/2022 2:03 PM EDTAddended by: DEMI ALFONSO on: 10/28/2022 02:03 PM Modules accepted: Orders documented in this encounterFairfield [facility] Center05-01-2023 Instructions* Patient Instructions* 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 APRN.CNS - 10/28/2022 1:31 PM EDT Start taking topiramate once daily for headache prevention Avoid use of spray on antiperspirant that is causing shortness of breath. documented in this encounterFairfield [facility] Center05-01-2023 History of Present illness Narrative* 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 APRN.CNS - 10/28/2022 1:00 PM EDT SUBJECTIVE: HEPATITIS B(4 of 4 - 4-dose series) due on 07/02/1999 COVID-19 VACCINE(1) Never done HIV SCREENING Never done DTAP,TDAP,TD(7 - Td or Tdap) due on 03/20/2020 MENINGOCOCCAL B: Consider based on risk(2 of 2 - Risk Bexsero 2-dose series) due on 04/09/2022 RASHI Katie Forde is a 21 year old [...] Obesity, Class III, BMI >= 40 Katie Fored is a patient of Dr Smalls, pediatrics. Last seen 05/2022. Presents to establish with primary care, Kate Silva MD She has been followed by specialists. Dr. Hailey Loera sleep disorders, to discuss sleep study results. Gastroenterology, Zuleika Perez PAC, last seen 07/2022 regarding fatty liver. Biopsy completed butnot adequate, repeat endorse but declined. She noted fatigue. Vitamin D deficiency noted, repletionendorsed. She was referred to manufacturing process engineer for chronic platelet and white blood cell [...] Was previously effective. She notes using Aleve gcbk-gjv-eujkogh and hemp cream along with sleep helps [...] current medications. No adverse effects noted. Previously prescribedby speaking unit assembler, Dr. Smalls. Review of Systems Respiratory: Positive for shortness of breath. Neurological: Positive for headaches. Objective BP 118/82 Pulse 105 Resp 16 Ht 181 cm (5' 11.25) Wt 132 kg (291 lb) LMP 08/26/2022 [...] tab^Take 1 tablet by mouth once daily.^Disp: 30tablet^Rfl: 12 medroxyPROGESTERone (PROVERA) 10 mg tablet^Take 1 tablet by mouth once daily. for the - of each month^Disp: 10 tablet^Rfl: 11 topiramate (TOPAMAX) 25 mg tablet^Take 1 tablet by mouth once daily.^Disp: 30 tablet^Rfl: 11 [START ON 11/09/2022] methylphenidate (RITALIN) 20 mg tablet^Take 1 tablet by mouth as needed for upto 30 days. Take at approx. 3-4 pm. [...] 1 tablet by mouth as needed for upto 30 days. Take at approx. 3-4 pm. Do not start before January 08, 2023.^Disp: 30 tablet^Rfl: 0 [START ON 12/09/2022] methylphenidate (RITALIN) 20 mg tablet^Take 1 tablet by mouth as needed for upto 30 days. Take at approx. 3-4 pm. [...] F90.2 History of treatment for ADD per speaking unit assembler, continue unchanged for now. - METHYLPHENIDATE 20 [...] gym. 3 mo follow up 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 APRN.[employer] 6 mo follow up Kate Silva MD - establish 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 APRN.CNS Medical Decision Making: Problems: Moderate: 2+ stable chronic illnesses Risk: Moderate: Drug management Medical Decision Making Level: 4 - Moderate documented in this encounterFairfield [facility] Center04-15-2023 History of Present illness Narrative* Selene Lazar-James - 10/12/2022 4:43 AM EDT Sleep Study Check-In Documentation Date: October 12, 2022 Name: Katie Forde Patient was accompanied by Significant other. Location: [place] Latex allergy: No Tape allergy: Yes Current medications were reviewed with the patient:Yes Sleep aid taken by patient for the sleep study: Joseph of sleep aid: Not Applicable Procedure was explained to the patient and all questions were answered. PAP treatment discussed and shown to patient: Yes Knowledge Program (KP): KP was not completed in epic by patient and accepted Study type: Polysomnogram Adverse Event: No (If yes create a new abstract) Comments: Patient was advised to follow up with their ordering provider regarding test results Selene Allredmiluz Poly-T documented in this encounterFairfield Medical Center04-13-2023 Miscellaneous Notes* Telephone Encounter - Antonio Smalls MD - 10/10/2022 7:53 AM EDT SPECIFIC NOTES (if applicable): GENERAL INFORMATION - [...] were missed on review. Antonio Smalls M.D. * Telephone Encounter - Sp Franco RN - 10/09/2022 11:32 AM EDT Has appointment with Dr. Arreguin 10/25/2022. Sp Franco RN * Telephone Encounter - Eden Mcgee RN - 10/09/2022 10:51 AM EDT Last WCC: greater than one year ago Last ADHD / Med Check visit: 03/12/22 (appAttach message sent that patient overdue for med [...] 04/09/2022 Eden Mcgee RN documented in this encounterFairfield Medical Center04-12-2023 Miscellaneous Notes* Telephone Encounter - Shukri Duenas MA - 10/09/2022 3:40 PM EDT Patient called in stating that she misplaced her vitamin d bottle. She wanted to know if she had any refills left on script and why the quantity was so low. Patient advised that there are no refills on script and since it was a high dose of vitamin d it usually isn't taken nursing home. documented in this encounterFairfield Medical Center04-12-2023 Miscellaneous Notes* Telephone Encounter - Kierra Mahmood Ma - 10/09/2022 11:13 AM EDT Patient phones requesting refills as follows: Requested Prescriptions Pending Prescriptions Disp Refills omeprazole (PRILOSEC) 20 mg capsule 30 capsule 5 Sig: Take 1 capsule by mouth once daily. Kierra Mahmood CMA documented in this encounterFairfield Medical Center04-03-2023 History of Present illness Narrative* Santi Mcallister MD - 09/30/2022 10:43 AM EDT Images from the original note were not included. Santi Mcallister MD Interventional Cardiology [facility] [address], [place] [address] [phone] Chief Complaint Patient presents with: New Patient Chest Pain Marfans HISTORY OF PRESENT ILLNESS: Ms. Forde is a 21 year old female seen in my office today for assessment and management patient hadestablished history of Marfan syndrome with history of bilateral dislocated lens with replacement Last echocardiogram 2017 Patient is complaining of exertional dyspnea and [...] capsule by mouth one time a week. 8capsule 0 omeprazole (PRILOSEC) 20 mg capsule Take [...] BP Position BP Site BP Cuff Size 04/03/23 1021 -- -- 110/80 87 -- -- [...] need an echocardiography to assess the size ofthe ascending aorta and assess the mitral valve [...] has been made to correct any errors. * Laura Brenner RN - 09/30/2022 10:41 AM EDT EVENT MONITOR DISPOSABLE PATCH INSTRUCTIONS Patient Name: Katie Forde [facility] Number: [id number] Skin prepped and cleansed with alcohol Patch secured to prepped area Monitor Activated Serial #: [id number] Patient Instructed: Prescribed order timeframe Bathing guidelines Usage of event button and diary documentation Return of monitor at the end of prescribed order Call with problems [phone] or [phone]. [phone] Patient expresses a good understanding of instructions Laura Brenner RN documented in this encounterFairfield Medical Center03-14-2023 Miscellaneous Notes* Telephone Encounter - Antonio Smalls MD - 09/10/2022 10:53 AM EDT SPECIFIC NOTES (if applicable): GENERAL INFORMATION - [...] were missed on review. Antonio Smalls M.D. * Telephone Encounter - Jo-Ann Carreon LPN - 09/09/2022 11:39 AM EDT Last WCC: greater than one year ago [...] 04/09/2022 Jo-Ann Carreon LPN documented in this encounterFairfield [facility] Center03-14-2023 Miscellaneous Notes* Telephone Encounter - Antonio Smalls MD - 09/10/2022 10:45 AM EDT The following approved medication requests have been transmitted electronically. Requested Prescriptions Signed Prescriptions Disp Refills methylphenidate (RITALIN) 20 mg tablet 30 tablet 0 Sig: Take 1 tablet by mouth as needed for up to 30 days. Take at approx. 3-4 pm. Authorizing Provider: ANTONIO SMALLS MD * Telephone Encounter - Jo-Ann Carreon LPN - 09/09/2022 11:43 AM EDT Last [facility]: greater than one year ago Last ADHD [...] 04/09/2022 Jo-Ann Carreon LPN documented in this encounterFairfield [facility] Center03-13-2023 Miscellaneous Notes* Telephone Encounter - Kristin Newby RN - 09/09/2022 11:54 AM EDT Last Provera rx was sent to [facility] in [place] on 03/29/22 with 11 refills. appAttach message sent. Kristin Newby RN documented in this encounterFairfield Medical Center03-10-2023 Instructions* Patient Instructions* Hailey Jett MD - 09/06/2022 1:20 PM EST [...] apnea may include positive airway pressure (PAP) therapy,oral appliance, hypoglossal nerve stimulator, nose/throat surgery, weight [...] your virtual visit or clinic visit with Hailey Jett MD or my associates, who will be able to explain the results in detail and any treatments options. - Call [phone] to schedule your sleep study and follow up appointment if it is not scheduled after your visit today with one of our schedulers. Sleep Nurse Practitioners: Roberta Vasquez CNP [facility] [address] [place] [address] [facility] [address] [place] [address] [facility] [address] [place] [address] Friday, Friday, Friday Appt: [phone] Rose Olivares, PhD, [facility] [address] [place] [address] [facility] [address] [place] [address] Mondays, Tuesdays & Friday Appt: [phone] Nohemy Berry, [facility] [address] [place] [address] [facility] [address] [place] [address] [facility] [address] [place] [address] Friday, Friday, Friday Appt: [phone] Ondina Kurtz [facility] [address] [place] [address] [facility] [address] [place] [address] [facility] [address] [place] [address] Friday, , Friday Appt: [phone] Anna Meadows, [facility] [address] [facility] [place] [address] [facility] [address] [place] [address] Friday, Friday, Friday, Friday Appt: [phone] Cherry Kay, [facility] [address] [place] [address] [facility] [address] [facility] [place] [address] Friday, Friday, Friday, Friday Appt: [phone] Any appointments can be scheduled through the central scheduling system for the [facility] at [phone]. [employer] now offers direct scheduling for patients to schedule appointments. Virtual visits are also available. If not covered by your insurance, there is a 35% discount. Please contact your insurance to determine coverage. Call the office at [phone], option #5 for questions. May use Message My Doc through My Chart for questions. May use My Chart Refills for refill requests. [facility] website: [email or web address] documented in this encounterFairfield Medical Center03-10-2023 History of Present illness Narrative* Hailey Jett MD - 09/06/2022 1:08 PM EST Images from the original note were not included. 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 She [...] for visit: Sleep apnea, Excessive daytime sleepiness [place] Sleepiness Scale 09/04/2022 Score 9 (No daytime [...] daily. for the 1st-10th of each month methylphenidate (RITALIN) 20 mg tablet Take 1 tablet by mouth as needed for up to 30 days. Take at approx. 3-4 pm. omeprazole (PRILOSEC) 20 mg capsule Take 1 capsule by mouth once daily. Prior Hypersomnia/Narcolepsy Medications (20 years) Some values may be hidden. Unless noted otherwise, only the newest values recorded on each date aredisplayed. Also, latest columns from 09/07/2012 - 09/07/2022 [...] hr capsule Dose: 40 mg DAILY Starting date:09/09/2015 Ending date: 09/13/2015 (Discontinued) amphetamine-dextroamphetamine XR (ADDERALL XR) 20 mg 24 hr capsule Dose: 40 mg DAILY Starting date:08/11/2015 Ending date: 09/13/2015 (Discontinued) amphetamine-dextroamphetamine XR (ADDERALL XR) 5 mg ORAL 24 hr capsule Dose: 5 mg EVERY MORNING Starting date: 06/05/2011 Ending date: 06/27/2011 (Discontinued) amphetamine-dextroamphetamine XR (ADDERALL XR) 5 mg 24 hr capsule Dose: 5 mg EVERY MORNING Startingdate: 10/24/2014 Ending date: 02/16/2015 (Discontinued) amphetamine-dextroamphetamine XR (ADDERALL XR) 5 mg 24 hr capsule Dose: 5 mg EVERY MORNING Startingdate: 11/14/2014 Ending date: 02/16/2015 (Discontinued) amphetamine-dextroamphetamine XR (ADDERALL XR) 5 mg 24 hr capsule Dose: 5 mg EVERY MORNING Startingdate: 12/15/2014 Ending date: 02/16/2015 (Discontinued) amphetamine-dextroamphetamine XR (ADDERALL XR) 5 mg 24 hr capsule Dose: 5 mg EVERY MORNING Startingdate: 01/14/2015 Ending date: 05/12/2015 (Discontinued) amphetamine-dextroamphetamine XR (ADDERALL XR) 5 mg 24 hr capsule Dose: 5 mg EVERY MORNING Startingdate: 02/17/2015 Ending date: 05/12/2015 (Discontinued) amphetamine-dextroamphetamine XR (ADDERALL XR) 5 mg 24 hr capsule Dose: 5 mg EVERY MORNING Startingdate: 04/18/2015 Ending date: 05/16/2015 (Discontinued) amphetamine-dextroamphetamine XR (ADDERALL XR) 5 mg 24 hr capsule Dose: 5 mg EVERY MORNING Startingdate: 03/19/2015 Ending date: 05/10/2015 (Discontinued) amphetamine-dextroamphetamine XR (ADDERALL XR) 5 mg 24 hr capsule Dose: 5 mg EVERY MORNING Startingdate: 05/16/2015 Ending date: 09/13/2015 (Discontinued) atomoxetine (STRATTERA) 40 mg capsule Dose: 40 mg DAILY (NOTE: This is a starter dose. Take 1 dailyfor the first 3 days.) Starting date: 07/31/2012 [...] po approx. 3-4 pm prn Starting date: 04/16/2010Ending date: 05/10/2010 (Discontinued) methylphenidate (RITALIN) 20 mg ORAL tablet Dose: 1 po approx. 3-4 pm prn Starting date: 05/10/2010Ending date: 06/05/2010 (Discontinued) methylphenidate (RITALIN) 20 mg ORAL tablet Dose: 1 po approx. 3-4 pm prn Starting date: 06/05/2010 Ending date: 06/29/2010 (Discontinued) methylphenidate (RITALIN) 20 mg ORAL tablet Dose: 1 po approx. 3-4 pm prn Starting date: 06/29/2010Ending date: 07/26/2010 (Discontinued) methylphenidate (RITALIN) 20 mg [...] NEEDED Take at approx. 3-4 pm. Starting date:09/26/2012 Ending date: 10/24/2012 (Discontinued) methylphenidate (RITALIN) 20 mg tablet Dose: 20 mg NEEDED Take at approx. 3-4 pm. Starting date:10/24/2012 Ending date: 11/21/2012 (Discontinued) methylphenidate (RITALIN) 20 mg tablet Dose: 20 mg NEEDED Take at approx. 3-4 pm. Starting date:11/21/2012 Ending date: 12/22/2012 (Discontinued) methylphenidate (RITALIN) 20 mg tablet Dose: 20 mg NEEDED Take at approx. 3-4 pm. Starting date:12/22/2012 Ending date: 01/19/2013 (Discontinued) methylphenidate (RITALIN) 20 mg tablet Dose: 20 mg NEEDED Take at approx. 3-4 pm. Starting date:01/19/2013 Ending date: 02/18/2013 (Discontinued) methylphenidate (RITALIN) 20 mg tablet Dose: 20 mg NEEDED Take at approx. 3-4 pm. Starting date:02/18/2013 Ending date: 03/22/2013 (Discontinued) methylphenidate (RITALIN) 20 mg tablet Dose: 20 mg NEEDED Take at approx. 3-4 pm. Starting date:03/22/2013 Ending date: 04/19/2013 (Discontinued) methylphenidate (RITALIN) 20 mg tablet Dose: 20 mg NEEDED Take at approx. 3-4 pm. Starting date:04/19/2013 Ending date: 05/18/2013 (Discontinued) methylphenidate (RITALIN) 20 mg tablet Dose: 20 mg NEEDED Take at approx. 3-4 pm. Starting date:05/18/2013 Ending date: 06/15/2013 (Discontinued) methylphenidate (RITALIN) 20 mg tablet Dose: 20 mg NEEDED Take at approx. 3-4 pm. Starting date:06/15/2013 Ending date: 07/14/2013 (Discontinued) methylphenidate (RITALIN) 20 mg tablet Dose: 20 mg NEEDED Take at approx. 3-4 pm. Starting date:07/14/2013 Ending date: 08/12/2013 (Discontinued) methylphenidate (RITALIN) 20 mg tablet Dose: 20 mg NEEDED Take at approx. 3-4 pm. Starting date:08/12/2013 Ending date: 09/07/2013 (Discontinued) methylphenidate (RITALIN) 20 mg tablet Dose: 20 mg NEEDED Take at approx. 3-4 pm. Starting date:09/07/2013 Ending date: 10/06/2013 (Discontinued) methylphenidate (RITALIN) 20 mg tablet Dose: 20 mg NEEDED Take at approx. 3-4 pm. Starting date:10/06/2013 Ending date: 11/03/2013 (Discontinued) methylphenidate (RITALIN) 20 mg tablet Dose: 20 mg NEEDED Take at approx. 3-4 pm. Starting date:11/03/2013 Ending date: 12/02/2013 (Discontinued) methylphenidate (RITALIN) 20 mg tablet Dose: 20 mg NEEDED Take at approx. 3-4 pm. Starting date:12/02/2013 Ending date: 12/29/2013 (Discontinued) methylphenidate (RITALIN) 20 mg tablet Dose: 20 mg NEEDED Take at approx. 3-4 pm. Starting date:12/29/2013 Ending date: 01/28/2014 (Discontinued) methylphenidate (RITALIN) 20 mg tablet Dose: 20 mg NEEDED Take at approx. 3-4 pm. Starting date:01/28/2014 Ending date: 03/01/2014 (Discontinued) methylphenidate (RITALIN) 20 mg tablet Dose: 20 mg NEEDED Take at approx. 3-4 pm. Starting date:03/01/2014 Ending date: 03/28/2014 (Discontinued) methylphenidate (RITALIN) 20 mg tablet Dose: 20 mg NEEDED Take at approx. 3-4 pm. Starting date:03/28/2014 Ending date: 04/22/2014 (Discontinued) methylphenidate (RITALIN) 20 mg tablet Dose: 20 mg NEEDED Take at approx. 3-4 pm. Starting date:04/22/2014 Ending date: 06/09/2014 (Discontinued) methylphenidate (RITALIN) 20 mg tablet Dose: 20 mg NEEDED Take at approx. 3-4 pm. Starting date:04/22/2014 Ending date: 04/22/2014 (Discontinued) methylphenidate (RITALIN) 20 mg tablet Dose: 20 mg NEEDED Take at approx. 3-4 pm. Starting date:04/22/2014 Ending date: 04/22/2014 (Discontinued) methylphenidate (RITALIN) 20 mg tablet Dose: 20 mg NEEDED Take at approx. 3-4 pm. Starting date:06/22/2014 Ending date: 06/09/2014 (Discontinued) methylphenidate (RITALIN) 20 mg tablet Dose: 20 mg NEEDED Take at approx. 3-4 pm. Starting date:05/23/2014 Ending date: 07/21/2014 (Discontinued) methylphenidate (RITALIN) 20 mg tablet Dose: 20 mg NEEDED Take at approx. 3-4 pm. Starting date:07/21/2014 Ending date: 10/18/2014 (Discontinued) methylphenidate (RITALIN) 20 mg tablet Dose: 20 mg NEEDED Take at approx. 3-4 pm. Starting date:08/22/2014 Ending date: 10/18/2014 (Discontinued) methylphenidate (RITALIN) 20 mg tablet Dose: 20 mg NEEDED Take at approx. 3-4 pm. Starting date:09/19/2014 Ending date: 10/18/2014 (Discontinued) methylphenidate (RITALIN) 20 mg tablet Dose: 20 mg NEEDED Take at approx. 3-4 pm. Starting date:10/18/2014 Ending date: 11/17/2014 (Discontinued) methylphenidate (RITALIN) 20 mg tablet Dose: 20 mg NEEDED Take at approx. 3-4 pm. Starting date:01/18/2015 Ending date: 02/16/2015 (Discontinued) methylphenidate (RITALIN) 20 mg tablet Dose: 20 mg NEEDED Take at approx. 3-4 pm. Starting date:12/19/2014 Ending date: 02/16/2015 (Discontinued) methylphenidate (RITALIN) 20 mg tablet Dose: 20 mg NEEDED Take at approx. 3-4 pm. Starting date:11/18/2014 Ending date: 02/16/2015 (Discontinued) methylphenidate (RITALIN) 20 mg tablet Dose: 20 mg NEEDED Take at approx. 3-4 pm. Starting date:02/17/2015 Ending date: 05/16/2015 (Discontinued) methylphenidate (RITALIN) 20 mg tablet Dose: 20 mg NEEDED Take at approx. 3-4 pm. Starting date:03/19/2015 Ending date: 05/12/2015 (Discontinued) methylphenidate (RITALIN) 20 mg tablet Dose: 20 mg NEEDED Take at approx. 3-4 pm. Starting date:04/18/2015 Ending date: 05/12/2015 (Discontinued) methylphenidate (RITALIN) 20 mg tablet Dose: 20 mg NEEDED Take at approx. 3-4 pm. Starting date:05/16/2015 Ending date: 06/14/2015 (Discontinued) methylphenidate (RITALIN) 20 mg tablet Dose: 20 mg NEEDED Take at approx. 3-4 pm. Starting date:06/14/2015 Ending date: 07/11/2015 (Discontinued) methylphenidate (RITALIN) 20 mg tablet Dose: 20 mg NEEDED Take at approx. 3-4 pm. Starting date:07/11/2015 Ending date: 10/11/2015 (Discontinued) methylphenidate (RITALIN) 20 mg tablet Dose: 20 mg NEEDED Take at approx. 3-4 pm. Starting date:09/09/2015 Ending date: 10/11/2015 (Discontinued) methylphenidate (RITALIN) 20 mg tablet Dose: 20 mg NEEDED Take at approx. 3-4 pm. Starting date:08/11/2015 Ending date: 10/11/2015 (Discontinued) methylphenidate (RITALIN) 20 mg tablet Dose: 20 mg NEEDED Take at approx. 3-4 pm. Starting date:11/10/2015 Ending date: 12/05/2015 (Discontinued) methylphenidate (RITALIN) 20 mg tablet Dose: 20 mg NEEDED Take at approx. 3-4 pm. Starting date:12/11/2015 Ending date: 03/12/2016 (Discontinued) methylphenidate (RITALIN) 20 mg tablet Dose: 20 mg NEEDED Take at approx. 3-4 pm. Starting date:10/11/2015 Ending date: 03/12/2016 (Discontinued) methylphenidate (RITALIN) 20 mg tablet Dose: 20 mg NEEDED Take at approx. 3-4 pm. Starting date:01/09/2016 Ending date: 02/09/2016 (Discontinued) methylphenidate (RITALIN) 20 mg tablet Dose: 20 mg NEEDED Take at approx. 3-4 pm. Starting date:02/09/2016 Ending date: 03/12/2016 (Discontinued) methylphenidate (RITALIN) 20 mg tablet Dose: 20 mg NEEDED Take at approx. 3-4 pm. Starting date:05/09/2016 Ending date: 06/07/2016 (Discontinued) methylphenidate (RITALIN) 20 mg tablet Dose: 20 mg NEEDED Take at approx. 3-4 pm. Starting date:04/10/2016 Ending date: 06/07/2016 (Discontinued) methylphenidate (RITALIN) 20 mg tablet Dose: 20 mg NEEDED Take at approx. 3-4 pm. Starting date:03/12/2016 Ending date: 06/07/2016 (Discontinued) methylphenidate (RITALIN) 20 mg tablet Dose: 20 mg NEEDED Take at approx. 3-4 pm. Starting date:06/07/2016 Ending date: 07/09/2016 (Discontinued) methylphenidate (RITALIN) 20 mg tablet Dose: 20 mg NEEDED between 3-4 pm Starting date: 08/08/2016Ending date: 09/09/2016 (Discontinued) methylphenidate (RITALIN) 20 mg tablet Dose: 20 mg NEEDED between 3-4 pm Starting date: 09/07/2016 Ending date: 09/09/2016 (Discontinued) methylphenidate (RITALIN) 20 mg tablet Dose: 20 mg NEEDED Take at approx. 3-4 pm. Starting date:07/09/2016 Ending date: 09/09/2016 (Discontinued) methylphenidate (RITALIN) 20 mg tablet Dose: 20 mg NEEDED Take at approx. 3-4 pm. Starting date:11/09/2016 Ending date: 12/09/2016 (Discontinued) methylphenidate (RITALIN) 20 mg tablet Dose: 20 mg NEEDED Take at approx. 3-4 pm. Starting date:10/10/2016 Ending date: 12/09/2016 (Discontinued) methylphenidate (RITALIN) 20 mg tablet Dose: 20 mg NEEDED Take at approx. 3-4 pm. Starting date:09/09/2016 Ending date: 12/09/2016 (Discontinued) methylphenidate (RITALIN) 20 mg tablet Dose: 20 mg NEEDED Take at approx. 3-4 pm. Starting date:12/09/2016 Ending date: 01/07/2017 (Discontinued) methylphenidate (RITALIN) 20 mg tablet Dose: 20 mg NEEDED Take at approx. 3-4 pm. Starting date:01/07/2017 Ending date: 02/03/2017 (Discontinued) methylphenidate (RITALIN) 20 mg tablet Dose: 20 mg NEEDED Take at approx. 3-4 pm. Starting date:02/03/2017 Ending date: 03/14/2017 (Discontinued) methylphenidate (RITALIN) 20 mg tablet Dose: 20 mg NEEDED Take at approx. 3-4 pm. Starting date:05/14/2017 Ending date: 06/11/2017 (Discontinued) methylphenidate (RITALIN) 20 mg tablet Dose: 20 mg NEEDED Take at approx. 3-4 pm. Starting date:04/13/2017 Ending date: 06/11/2017 (Discontinued) methylphenidate (RITALIN) 20 mg tablet Dose: 20 mg NEEDED Take at approx. 3-4 pm. Starting date:03/14/2017 Ending date: 06/11/2017 (Discontinued) methylphenidate (RITALIN) 20 mg tablet Dose: 20 mg NEEDED Take at approx. 3-4 pm. Starting date:06/11/2017 Ending date: 09/08/2017 (Discontinued) methylphenidate (RITALIN) 20 mg tablet Dose: 20 mg NEEDED Take at approx. 3-4 pm. Starting date:08/10/2017 Ending date: 09/08/2017 (Discontinued) methylphenidate (RITALIN) 20 mg tablet Dose: 20 mg NEEDED Take at approx. 3-4 pm. Starting date:07/11/2017 Ending date: 09/08/2017 (Discontinued) methylphenidate (RITALIN) 20 mg tablet Dose: 20 mg NEEDED Take at approx. 3-4 pm. Starting date:09/08/2017 Ending date: 09/30/2017 (Discontinued) methylphenidate (RITALIN) 20 mg tablet Dose: 20 mg NEEDED Take at approx. 3-4 pm. Starting date:09/30/2017 Ending date: 11/07/2017 (Discontinued) methylphenidate (RITALIN) 20 mg tablet Dose: 20 mg NEEDED Take at approx. 3-4 pm. Starting date:11/07/2017 Ending date: 12/08/2017 (Discontinued) methylphenidate (RITALIN) 20 mg tablet Dose: 20 mg NEEDED Take at approx. 3-4 pm. Starting date:12/08/2017 Ending date: 03/04/2018 (Discontinued) methylphenidate (RITALIN) 20 mg tablet Dose: 20 mg NEEDED Take at approx. 3-4 pm. Starting date:01/07/2018 Ending date: 03/04/2018 (Discontinued) methylphenidate (RITALIN) 20 mg tablet Dose: 20 mg NEEDED Take at approx. 3-4 pm. Starting date:02/06/2018 Ending date: 03/04/2018 (Discontinued) methylphenidate (RITALIN) 20 mg tablet Dose: 20 mg NEEDED Take at approx. 3-4 pm. Starting date:05/04/2018 Ending date: 05/28/2018 (Discontinued) methylphenidate (RITALIN) 20 mg tablet Dose: 20 mg NEEDED Take at approx. 3-4 pm. Starting date:04/03/2018 Ending date: 03/25/2018 (Discontinued) methylphenidate (RITALIN) 20 mg tablet Dose: 20 mg NEEDED Take at approx. 3-4 pm. Starting date:03/04/2018 Ending date: 03/25/2018 (Discontinued) methylphenidate (RITALIN) 20 mg tablet Dose: 20 mg NEEDED Take at approx. 3-4 pm. Starting date:05/28/2018 Ending date: 06/18/2018 (Discontinued) methylphenidate (RITALIN) 20 mg tablet Dose: 20 mg NEEDED Take at approx. 3-4 pm. Starting date:06/18/2018 Ending date: 07/22/2018 (Discontinued) methylphenidate (RITALIN) 20 mg tablet Dose: 20 mg NEEDED Take at approx. 3-4 pm. Starting date:07/23/2018 Ending date: 08/20/2018 (Discontinued) methylphenidate (RITALIN) 20 mg tablet Dose: 20 mg NEEDED Take at approx. 3-4 pm. Starting date:08/20/2018 Ending date: 09/08/2018 (Discontinued) methylphenidate (RITALIN) 20 mg tablet Dose: 20 mg NEEDED Take at approx. 3-4 pm. Starting date:09/08/2018 Ending date: 10/19/2018 (Discontinued) methylphenidate (RITALIN) 20 mg tablet Dose: 20 mg NEEDED Take at approx. 3-4 pm. Starting date:10/21/2018 Ending date: 11/17/2018 (Discontinued) methylphenidate (RITALIN) 20 mg tablet Dose: 20 mg NEEDED Take at approx. 3-4 pm. Starting date:11/17/2018 Ending date: 12/18/2018 (Discontinued) methylphenidate (RITALIN) 20 mg tablet Dose: 20 mg NEEDED Take at approx. 3-4 pm. Starting date:12/18/2018 Ending date: 01/19/2019 (Discontinued) methylphenidate (RITALIN) 20 mg tablet Dose: 20 mg NEEDED Take at approx. 3-4 pm. Starting date:01/19/2019 Ending date: 02/17/2019 (Discontinued) methylphenidate (RITALIN) 20 mg tablet Dose: 20 mg NEEDED Take at approx. 3-4 pm. Starting date:02/18/2019 Ending date: 03/18/2019 (Discontinued) methylphenidate (RITALIN) 20 mg tablet Dose: 20 mg NEEDED Take at approx. 3-4 pm. Starting date:03/18/2019 Ending date: 04/13/2019 (Discontinued) methylphenidate (RITALIN) 20 mg tablet Dose: 20 mg NEEDED Take at approx. 3-4 pm. Starting date:04/13/2019 Ending date: 07/15/2019 (Discontinued) methylphenidate (RITALIN) 20 mg tablet Dose: 20 mg NEEDED Take at approx. 3-4 pm. Starting date:05/17/2019 Ending date: 06/16/2019 (Discontinued) methylphenidate (RITALIN) 20 mg tablet Dose: 20 mg NEEDED Take at approx. 3-4 pm. Starting date:06/17/2019 Ending date: 07/15/2019 (Discontinued) methylphenidate (RITALIN) 20 mg tablet Dose: 20 mg NEEDED Take at approx. 3-4 pm. Starting date:07/15/2019 Ending date: 08/20/2019 (Discontinued) methylphenidate (RITALIN) 20 mg tablet Dose: 20 mg NEEDED Take at approx. 3-4 pm. Starting date:08/20/2019 Ending date: 09/17/2019 (Discontinued) methylphenidate (RITALIN) 20 mg tablet Dose: 20 mg NEEDED Take at approx. 3-4 pm. Starting date:09/17/2019 Ending date: 10/19/2019 (Discontinued) methylphenidate (RITALIN) 20 mg tablet Dose: 20 mg NEEDED Take at approx. 3-4 pm. Starting date:10/19/2019 Ending date: 11/17/2019 (Discontinued) methylphenidate (RITALIN) 20 mg tablet Dose: 20 mg NEEDED Take at approx. 3-4 pm. Starting date:11/18/2019 Ending date: 12/22/2019 (Discontinued) methylphenidate (RITALIN) 20 mg tablet Dose: 20 mg NEEDED Take at approx. 3-4 pm. Starting date:12/23/2019 Ending date: 01/28/2020 (Discontinued) methylphenidate (RITALIN) 20 mg tablet Dose: 20 mg NEEDED Take at approx. 3-4 pm. Starting date:01/28/2020 Ending date: 03/01/2020 (Discontinued) methylphenidate (RITALIN) 20 mg tablet Dose: 20 mg NEEDED Take at approx. 3-4 pm. Starting date:03/02/2020 Ending date: 04/07/2020 (Discontinued) methylphenidate (RITALIN) 20 mg tablet Dose: 20 mg NEEDED Take at approx. 3-4 pm. Starting date:04/07/2020 Ending date: 05/12/2020 (Discontinued) methylphenidate (RITALIN) 20 mg tablet Dose: 20 mg NEEDED Take at approx. 3-4 pm. Starting date:05/12/2020 Ending date: 06/16/2020 (Discontinued) methylphenidate (RITALIN) 20 mg tablet Dose: 20 mg NEEDED Take at approx. 3-4 pm. Starting date:06/16/2020 Ending date: 07/21/2020 (Discontinued) methylphenidate (RITALIN) 20 mg tablet Dose: 20 mg NEEDED Take at approx. 3-4 pm. Starting date:07/21/2020 Ending date: 08/29/2020 (Discontinued) methylphenidate (RITALIN) 20 mg tablet Dose: 20 mg NEEDED Take at approx. 3-4 pm. Starting date:08/29/2020 Ending date: 10/10/2020 (Discontinued) methylphenidate (RITALIN) 20 mg tablet Dose: 20 mg NEEDED Take at approx. 3-4 pm. Starting date:10/10/2020 Ending date: 11/18/2020 (Discontinued) methylphenidate (RITALIN) 20 mg tablet Dose: 20 mg NEEDED Take at approx. 3-4 pm. Starting date:11/20/2020 Ending date: 2020 (Discontinued) methylphenidate (RITALIN) 20 mg tablet Dose: 20 mg NEEDED Take at approx. 3-4 pm. Starting date:01/02/2021 Ending date: 02/10/2021 (Discontinued) methylphenidate (RITALIN) 20 mg tablet Dose: 20 mg NEEDED Take at approx. 3-4 pm. Starting date:02/13/2021 Ending date: 03/17/2021 (Discontinued) methylphenidate (RITALIN) 20 mg tablet Dose: 20 mg NEEDED Take at approx. 3-4 pm. Starting date:03/17/2021 Ending date: 05/03/2021 (Discontinued) methylphenidate (RITALIN) 20 mg tablet Dose: 20 mg NEEDED Take at approx. 3-4 pm. Starting date:05/03/2021 Ending date: 06/13/2021 (Discontinued) methylphenidate (RITALIN) 20 mg tablet Dose: 20 mg NEEDED Take at approx. 3-4 pm. Starting date:06/14/2021 Ending date: 07/12/2021 (Discontinued) methylphenidate (RITALIN) 20 mg tablet Dose: 20 mg NEEDED Take at approx. 3-4 pm. Starting date:07/12/2021 Ending date: 08/14/2021 (Discontinued) methylphenidate (RITALIN) 20 mg tablet Dose: 20 mg NEEDED Take at approx. 3-4 pm. Starting date:08/14/2021 Ending date: 09/11/2021 (Discontinued) methylphenidate (RITALIN) 20 mg tablet Dose: 20 mg NEEDED Take at approx. 3-4 pm. Starting date:09/11/2021 Ending date: 10/09/2021 (Discontinued) methylphenidate (RITALIN) 20 mg tablet Dose: 20 mg NEEDED Take at approx. 3-4 pm. Starting date:10/09/2021 Ending date: 11/06/2021 (Discontinued) methylphenidate (RITALIN) 20 mg tablet Dose: 20 mg NEEDED Take at approx. 3-4 pm. Starting date:11/07/2021 Ending date: 12/07/2021 (Discontinued) methylphenidate (RITALIN) 20 mg tablet Dose: 20 mg NEEDED Take at approx. 3-4 pm. Starting date:12/07/2021 Ending date: 01/04/2022 (Discontinued) methylphenidate (RITALIN) 20 mg tablet Dose: 20 mg NEEDED Take at approx. 3-4 pm. Starting date:01/04/2022 Ending date: 01/30/2022 (Discontinued) methylphenidate (RITALIN) 20 mg tablet Dose: 20 mg NEEDED Take at approx. 3-4 pm. Starting date:01/30/2022 Ending date: 03/05/2022 (Discontinued) methylphenidate (RITALIN) 20 mg tablet Dose: 20 mg NEEDED Take at approx. 3-4 pm. Starting date:03/05/2022 Ending date: 04/04/2022 (Discontinued) methylphenidate (RITALIN) 20 mg tablet Dose: 20 mg NEEDED Take at approx. 3-4 pm. Starting date:04/04/2022 Ending date: 05/09/2022 (Discontinued) methylphenidate (RITALIN) 20 mg tablet Dose: 20 mg NEEDED Take at approx. 3-4 pm. Starting date:05/09/2022 Ending date: 06/06/2022 (Discontinued) methylphenidate (RITALIN) 20 mg tablet Dose: 20 mg NEEDED Take at approx. 3-4 pm. Starting date:06/06/2022 Ending date: 07/03/2022 (Discontinued) methylphenidate (RITALIN) 20 mg tablet Dose: 20 mg NEEDED Take at approx. 3-4 pm. Starting date:07/04/2022 Ending date: 08/05/2022 (Discontinued) methylphenidate (RITALIN) 20 mg tablet Dose: 20 mg NEEDED Take at approx. 3-4 pm. Starting date:08/06/2022 Ending date: 09/05/2022 METHYLPHENIDATE 10 MG TAB [...] approx. 3-4 pm prn Starting date: 07/05/2009 Endingdate: 08/03/2009 (Discontinued) methylphenidate hcl(RITALIN 20 MG TAB) Dose: 1 po approx. 3-4 pm prn Starting date: 08/03/2009 Endingdate: 08/30/2009 (Discontinued) methylphenidate hcl(RITALIN 20 MG TAB) Dose: 1 po approx. 3-4 pm prn Starting date: 08/30/2009 Endingdate: 09/25/2009 (Discontinued) methylphenidate hcl(RITALIN 20 MG TAB) [...] approx. 3-4 pm prn Starting date: 02/05/2010 Endingdate: 03/01/2010 (Discontinued) methylphenidate hcl(RITALIN 20 MG TAB) Dose: 1 po approx. 3-4 pm prn Starting date: 03/01/2010 Endingdate: 03/20/2010 (Discontinued) methylphenidate hcl(RITALIN 20 MG TAB) [...] noon and then 4 pm Starting date: 10/31/2005Ending date: 12/13/2005 (Discontinued) RITALIN 10 MG TAB [...] 2 tablet at 3pm prn Starting date: 01/30/2007Ending date: 02/28/2007 (Discontinued) methylphenidate (RITALIN) 5 mg ORAL Tab Dose: Take 1 or 2 tablet at 3pm prn Starting date: 02/28/2007Ending date: 03/26/2007 (Discontinued) methylphenidate (RITALIN) 5 mg [...] 2 tablet at 3pm prn Starting date: 06/25/2007Ending date: 07/22/2007 (Discontinued) methylphenidate hcl(RITALIN 5 MG TAB) Dose: Take 1 or 2 tablet at 3pm prn Starting date: 06/25/2007Ending date: 07/25/2007 methylphenidate hcl(RITALIN 5 MG TAB) [...] 2 tablet at 3pm prn Starting date: 06/22/2008Ending date: 07/30/2008 (Discontinued) methylphenidate hcl(RITALIN 5 MG [...] the newest values recorded on each date aredisplayed. RLS Medications HYDROcodone 5 mg - acetaminophen 325 mg tablet (NORCO) Dose: 1-2 tablet ONCE Give 1 tab for moderate pain Give 2 tabs for severe pain Starting date: 07/05/2022 Ending date: 07/05/2022 (Discontinued) morphine 4 mg injection Dose: 4 mg X (PACU ONLY) PRN 2nd Line Therapy for Breakthrough Pain MaximumTOTAL DOSE from ALL orders = 0.15 mg/kg, not to exceed 10 mg May give every 10 minutes as needed Starting date: 05/12/2015 Ending date: 05/12/2015 (Discontinued) Prior Insomnia Medications (last 20 years) Some values may be hidden. Unless noted otherwise, only the newest values recorded on each date aredisplayed. Insomnia Medications ESCITALOPRAM OXALATE (LEXAPRO ORAL) Dose: [...] Nasal valve incompetence absent. Posterior airspace: Arias tongueposition 4, retrognathia absent. Overbite absent. High arched [...] to ensure your preferred time and location. Hailey Jett MD Staff, [facility] Appt: [phone] Mail: [address] [place] [address] Activity Duration Exam room 2 minutes Exam room 27 minutes Current session 1 minute Total time: 31 minutes* *Based only on time spent in the patient's chart documented in this [facility]-2023 Instructions* Patient Instructions* ADITYA Swann - 09/05/2022 11:23 AM EST [...] or fungal infections. Be sure to finish entirecourse of prescribed antibiotics to avoid complications. ACTIVITY: [...] Dark urine. Chest pain. documented in this encounter[facility]03-[facility]-2023 History of Present illness Narrative* ADITYA Swann - 09/05/2022 11:14 AM EST This note was created using GMEX. Subjective Katie Forde is a 21 year old female. HPI 21-year-old female presents for sore throat. Patient states she has had sore throat for about aweek. Yesterday she fell about lightheaded. This is [...] daily. for the - of each month omeprazole (PRILOSEC) 20 mg capsule Take 1 capsule by mouth once daily. PNV No.40-Iron Fum-FA Cmb No.1 (PNV-SELECT) 27-1 mg tab Take 1 tablet by mouth once daily. (Patientnot taking: Reported on 09/05/2022) FAMILY HISTORY Problem [...] ER evaluation. ADITYA Swann documented in this encounter[facility]03-07-2023 Miscellaneous Notes* Telephone Encounter - Zuleika Harkins - 09/03/2022 9:47 AM EST Patient scheduled. Zuleika Harkins * Telephone Encounter - Dianne Bender LPN - 09/02/2022 9:32 AM EST Pt. Notified that the molecular testing I ordered did not reveal any evidence of an underlying lymphoproliferative disorder or myeloproliferative disorder. Dr. Burris would like to see her for an office visit with CBC in about 4 months. Pt. Voiced understanding. Dianne Bender LPN * Telephone Encounter - Russell Burris DO - 09/01/2022 8:58 AM EST Can let her know that the molecular testing I ordered did not reveal any evidence of an underlying lymphoproliferative disorder or myeloproliferative disorder. I see that she is being referred for sleep study. That is great. I would like to see her for an office visit with CBC in about 4 months. Russell Burris DO documented in this encounter[facility]03-06-2023 Miscellaneous Notes* Telephone Encounter - Tracy Carreon LPN - 09/02/2022 9:56 AM EST Patient spoke with nurse regarding results this morning. Tracy Carreon LPN documented in this encounterFair[facility]02-28-2023 Miscellaneous Notes* Telephone Encounter - More Dos Santos LPN - 08/27/2022 4:19 PM EST Two are still in process. Will contact pt after Dr Burris reviews them all. pt aware. More Dos Santos LPN * Telephone Encounter - Megha Bloom Pss - 08/27/2022 4:13 PM EST Patient requesting lab results from 08/22. documented in this encounterFair[facility]02-23-2023 History of Present illness Narrative* Russell Burris, - 08/22/2022 3:13 PM EST Patient referred by Zuleika Perez PA-C for leukocytosis and thrombocytosis. The impression and plan will be communicated by way of the shared electronic record or faxed under separate cover letter. HPI: The patient is a 21-year-old female with a past medical history significant for Marfan syndrome, fatty infiltration of the liver and migraine headaches. Undergoing work up for fatty liver. Appetite--I eat a lot even if not hungry. Weight stable to 01/2022. Frequent nausea. Takes PPI--controls reflux. Typically has diarrhea if eats greasy foods. No black or bloody stools. No abdominal pain--other than sporadic lower left costal pain in mid-axillary line. Fatigued for several months. Gets about 7-8 hours sleep a night. Feels groggy next day. Takes naps often. Mother says she snoresloudly when sleeping on couch. Doesn't drive. Quit smoking about a year ago. Still vapes. No major childhood illnesses. No history of hospitalization. Frequent cough. Occasional sputum. No wheezing. No h/o hemoptysis. Dyspnea for stairs. Gets sternal pain about once a week--occurs when sitting or lying down. Hemp cream helps it resolve. If not Tylenol resolves it. Menses--wonky. Length of menses varies 6-10 days. Passes small clots. Has a perceptible hole in her first right upper molar. Lower rear molars hurt. Has not seen dentistin a while. PAST MEDICAL HISTORY Diagnosis Date [...] daily. for the -10th of each month fluticasone (FLONASE) 50 mcg/actuation [...] temperature source Temporal, height 181.6 cm (5' 11.5), weight 130.2 kg (287 lb), last menstrual [...] edema. SKIN: No jaundice or rash. 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 No focal motor [...] 3.26 3.42 3.96 4.89 (H) 6.30 (H) Winn% % 8.0 7.9 4.9 6.3 5.0 Abs Winn <0.87 k/uL 0.85 0.76 0.55 0.74 0.90 [...] test normal. Most likely secondary to underlying processsuch as dental caries, steatosis, vaping and increased [...] which included preparing to see the patient, [id number] patient care, completing clinical documentation, obtaining and/or reviewing separately obtained history, performing a medically appropriate examination, counseling and educating the pat ient/family/caregiver, ordering medications, tests, or procedures, communicating with other HCPs (not separately reported), and communicating results to the patient/family/caregiver. Russell Burris DO documented in this encounterFair[facility]02-15-2023 Miscellaneous Notes* Telephone Encounter - Hemalatha Dejesus MD - 08/14/2022 2:25 PM EST Patient's request for medication is as follows: Pending Prescriptions: Disp Refills amphetamine-dextroamphetamine XR (ADDERALL*30 cap*0 Sig: Take 1 capsule by mouth every morning for 30 days. Prescription(s) as above. Please process accordingly. Hemalatha Dejesus MD * Telephone Encounter - Eden Mcgee RN - 08/14/2022 2:18 PM EST [facility] pharmacy did not have medication in stock original but Alban Santillan now has it. She questions if a new prescription can be sent over for the Adderall XR 30mg. Order pended Eden Mcgee RN documented in this encounterFair[facility]02-08-2023 History of Present illness Narrative* Zuleika Perez PA-C - 08/07/2022 12:58 PM EST CHIEF COMPLAINT: Patient presents with: Procedure Follow Up: Complains of being tired more often. She has a burning sensation near her esophagus. Biopsy 07/05/22 HPI Katie Forde is a 21 year old female here today for Procedure Follow Up (Complains of being tiredmore often. She has a burning sensation near [...] portal vein and bile duct branches present. Interfacehepatitis is not identified. The lobular parenchyma shows minimal (5%) macrovesicular steatosis, with a single possible ballooned hepatocyte and few hepatocytes seen. Cholestasis is not identified. Definite central vein areas are not present for evaluation. Intranuclear glycogen is appreciatedwithin some hepatocytes. A trichrome stain shows no evidence of fibrosis. Iron stain shows no stainable iron. Reticulin stain shows normal reticulin fiber network. PAS/diastase stain shows no intracyt oplasmic globules. Overall, the biopsy is suboptimal for evaluation given scant sampling and may not be territory service representative of a disease process, if present. Re- biopsy is recommended if clinically indicated to further evaluate for possible fatty liver disease. Dr. Scott Worthy has reviewed the case andagrees with the interpretation. Component Latest Ref Rng [...] with more than 50% of the total [id number] time of the visit in counseling / coordination of care. I have confirmed and edited as necessary, the PFSH and ROS obtained by others. Zuleika Perez PA-C August 07, 2022 1:16 PM documented in this encounterFair[facility]02-07-2023 Miscellaneous Notes* Telephone Encounter - Antonio Smalls MD - 08/06/2022 1:49 PM EST The following approved medication requests have been [...] 30 days. Authorizing Provider: ANTONIO SMALLS MD * Telephone Encounter - Jo-Ann Carreon LPN - 08/05/2022 10:39 AM EST Last [facility]: greater than one year ago [...] 04/09/2022 Jo-Ann Carreon LPN documented in this encounter[facility]01-19-2023 Miscellaneous Notes* Telephone Encounter - Arminda Montoya LPN - 07/18/2022 8:48 AM EST Phone call placed patient advised (see prior provider encounter) Patient verbalized understanding, agreed with plan of care. Arminda Montoya LPN * Telephone Encounter - Johnson Tamez MD - 07/18/2022 8:14 AM EST Vaginal testing showed overgrowth of both yeast and normal bacteria. 2 different medications were sent to the pharmacy to treat this. You tested negative for gonorrhea and chlamydia. Follow-up with your PCP or intensive care unit registered nurse if symptoms persist. documented in this encounterFair[facility] Center01-10-2023 Miscellaneous Notes* Addendum Note - Arthur Joseph PA-C - 07/09/2022 3:53 PM ESTAddended by: ARTHUR JOSEPH on: 07/09/2022 03:53 PM Modules accepted: Orders documented in this encounterFair[facility]01-10-2023 History of Present illness Narrative* Arthur Joseph PA-C - 07/09/2022 3:32 PM EST This note was created using [employer]. Subjective Katie Forde is a 21 year old female. HPI Patient presents with sinus pressure and congestion and cough over the past 2 weeks. About a month ago she was seen in primary care and diagnosed with sinusitis. She was placed on amoxicillin. She states that had gotten better and then this started 2 weeks ago. No fever. She has tried multiple mnfk-kim-mpylqem medications without relief. No vomiting or diarrhea. [...] daily. for the -10th of each month 10 tablet 11 amphetamine-dextroamphetamine [...] worsen. Arthur Joseph PA-C documented in this encounterFair[facility]01-10-2023 Miscellaneous Notes* Telephone Encounter - Antonio Smalls MD - 07/09/2022 1:29 PM EST SPECIFIC NOTES (if applicable): GENERAL INFORMATION - [...] were missed on review. Antonio Smalls M.D. * Telephone Encounter - Jo-Ann Carreon LPN - 07/09/2022 12:24 PM EST [facility] is out of the Adderall and mom is wondering if the Rx can be sent to [facility] as they have it on hand. New RX pended. Pharmacy info was updated. documented in this encounterFair[facility] Center01-06-2023 Miscellaneous Notes* Sedation Documentation - Keysha Dawn RN - 07/05/2022 11:12 AM EST Site assessed dressing clean dry and intact * Sedation Documentation - Keysha Dawn RN - 07/05/2022 11:[address] Hayes at bedside with pt. documented in this encounterFairfield [facility] Center01-06-2023 Surgical operation note* Brief Op Note - Mirna Hayes MD - 07/05/2022 11:12 AM EST BRIEF OPERATIVE / PROCEDURE NOTE LOG ID: [id number] SURGERY/PROCEDURE DATE: 07/05/2022 INCISION/PROCEDURE START TIME: 10:34 AM INCISION CLOSE/PROCEDURE END TIME: 11:02 AM SURGEON(S)/PROCEDURALIST(S) AND SIGN CARPENTER(S): Surgeon(s) and Role: * Mirna Hayes MD - Primary No Additional Staff SURGERY/PROCEDURE(S): Ultrasound guided random liver biopsy ANESTHESIA: Procedural Sedation FINDINGS: ESTIMATED BLOOD LOSS: minimal SPECIMENS: multiple cores COMPLICATIONS: None PRE-OP/PRE-PROCEDURE DIAGNOSIS: Hepatic steatosis POST-OP/POST-PROCEDURE DIAGNOSIS: Same as Preop SIGNATURE: Mirna Hayes MD PATIENT NAME: Katie Forde DATE: July 05, 2022 TIME: 11:12 AM documented in this encounterFair[facility] Center01-06-2023 History and physical note * Mirna Hayes MD - 07/05/2022 11:11 AM EST UPDATED HISTORY AND PHYSICAL EXAMINATION SERVICE DATE: 07/05/2022 SERVICE TIME: 10:15 am The History and Physical (completed in the past 30 days) has been reviewed and the patient has beenexamined. The contents accurately reflect the patient's condition with the following additions or revisions since the H&P was completed. Examination indicates no changes. This H&P can be found in the Electronic Medical Record. SIGNATURE: Mirna Hayes MD PATIENT NAME: Katie Forde DATE: July 05, 2022 TIME: 11:11 AM PAGER: documented in this encounterFair[facility] Center01-05-2023 Miscellaneous Notes* Telephone Encounter - Antonio Smalls MD - 07/04/2022 10:38 AM EST The following approved medication requests have been [...] 3-4 pm. Authorizing Provider: ANTONIO SMALLS MD * Telephone Encounter - Dylan Aldridge RN - 07/03/2022 9:00 AM EST Last [facility]: greater than one year ago Last ADHD [...] fine awaiting his return documented in this encounterFairfield Medical Center01-03-2023 Miscellaneous Notes* Telephone Encounter - Kristin Newby RN - 07/02/2022 2:19 PM EST Rx for PNV was sent 05/30/22 to [facility] [place] with 12 refills. appAttach message sent. Kristin Newby RN documented in this encounterFairfield Medical Center12-15-2022 Miscellaneous Notes* Addendum Note - Zuleika Perez PA-C - 06/13/2022 9:29 AM ESTAddended by: ZULEIKA PEREZ on: 06/13/2022 09:29 AM Modules accepted: Orders * Telephone Encounter - Zuleika Perez PA-C - 06/13/2022 9:28 AM EST Liver biopsy order placed. * Telephone Encounter - Kierra Mahmood Ma - 06/13/2022 9:23 AM EST Spoke with Katie, go ahead and place the order for liver biopsy, [facility] Kierra Mahmood GROUP LEADER [employer]ESSING * Telephone Encounter - Zuleika Perez PA-C - 06/13/2022 9:04 AM EST Called patient to discuss liver testing. Did [...] is willing to proceed. documented in this encounterFairfield Medical Center12-14-2022 Miscellaneous Notes* Telephone Encounter - Shukri Duenas MA - 06/12/2022 8:00 AM EST Patient phones requesting refills as follows: Requested Prescriptions Pending Prescriptions Disp Refills omeprazole (PRILOSEC) 20 mg capsule 30 capsule 2 Sig: Take 1 capsule by mouth once daily. Please review and advise. Shukri Duenas MA documented in this encounterFairfield Medical Center12-13-2022 History of Present illness Narrative* Antonio Smalls MD - 06/11/2022 1:22 PM EST The patient was seen for the issues [...] ordered or obtained, is reviewed by a screening nurse before being considered final. Additional recommendations may [...] been determined (based on review of the case advocate note). Therefore final conclusions regarding symptoms, natural course of the disorder, etc. cannot yet be made. I spent a total of 30-39 minutes on the date of service. This included preparing to see the patient; hzdf-[id number]-yfrn patient care; obtaining and/or reviewing separately obtained history; performing a medically appropriate examination; counseling and educatingthe patient/family/caregiver; and completing clinical documentation. As applicable, this also included ordering medications, tests, or procedures; independently interpreting results; communicating results to the patient/family/caregiver; and care coordination (not separately reported). This note was partially generated using Portafare voice recognition system, and there may be some incorrect words, spellings, and punctuation that were not noted in checking the note before saving. Antonio Smalls M.D. documented in this encounterFairfield Medical Center12-13-2022 Miscellaneous Notes* Telephone Encounter - Zuleika Perez PA-C - 06/11/2022 7:54 AM EST Full liver panel ordered. documented in this encounterFairfield Medical Center12-09-2022 Miscellaneous Notes* Telephone Encounter - Antonio Smalls MD - 06/07/2022 2:45 PM EST SPECIFIC NOTES (if applicable): GENERAL INFORMATION - [...] were missed on review. Antonio Smalls M.D. * Telephone Encounter - Eden Mcgee RN - 06/07/2022 2:20 PM EST Mom calling. States [facility] does not have Adderall XR 30mg in stock. She questions if you can send the prescription to [facility]. Order pended Eden Mcgee RN documented in this encounterFairfield Medical Center12-08-2022 Miscellaneous Notes* Telephone Encounter - Antonio Smalls MD - 06/06/2022 2:19 PM EST The following approved medication requests have been [...] or physically signed. If applicable, please notify thepatient/family that they are ready. Unless noted by the intake documentation, I assume the medications are being used as directed; the patient is doing well; there are no significant side effects; and there are no undocumented medications or allergies. This note was partially created using Portafare voice recognition, and there may be some incorrect words, spellings, and punctuation that were not found during review. Antonio Smalls M.D. * Telephone Encounter - Megha Mcdonnell LPN - 06/06/2022 1:31 PM EST Mom in office with sibling, requesting refills of Adderall 30 mg and Ritalin 20 mg to be sent to the [facility]. Megha Mcdonnell LPN documented in this encounterFairfield Medical Center12-01-2022 Miscellaneous Notes* Telephone Encounter - Kristin Newby RN - 05/30/2022 3:51 PM EST On 03/29/22 a new rx was [facility] with 11 refills. appAttach message sent to patient. Kristin Newby RN documented in this encounterFairfield Medical Center12-01-2022 History of Present illness Narrative* Suyapa Recinos MD - 05/30/2022 11:10 AM EST Katie Forde is a 21 year old female who presents for problem visit for f/u AUB HPI: 21-year-old female who took Provera because of abnormal uterine bleeding. She then had a heavymenses afterwards. She just took the Provera about the through 18 May. The she then had a10-day menses. She is not bleeding today. She has no other new concerns today. 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 Discussed with her the needto protect the endometrium. Is currently sexually active with a male partner not planning a but does not want a be on control. We discussed combined hormonal contraceptives that is anoption to control menses, cyclic Provera or progestin [...] Medical Decision Making Level: 1 - N/A Suyapa Recinos MD documented in this encounterFairfield Medical Center11-25-2022 Miscellaneous Notes* Telephone Encounter - Cate Mcrae RN - 05/24/2022 4:54 PM EST I have scheduled patient to see Dr Recinos next week. Earlier appts. offered-pt declined. Bleeding precautions given as well as directive from Dr Snider * Telephone Encounter - James Snider MD - 05/24/2022 4:49 PM EST I would schedule a visit for patient next week. If has heavy bleeding over the weekend would recommend ED visit. James Snider MD * Telephone Encounter - Roseanna Dumont LPN - 05/24/2022 4:19 PM EST Please review in KJ absence. Roseanna Dumont LPN * Telephone Encounter - Roseanna Dumont LPN - 05/24/2022 2:08 PM EST Pt calling and stated that she has [...] do. Roseanna Dumont LPN documented in this encounterFairfield Medical Center11-10-2022 History of Present illness Narrative* Antonio Smalls MD - 05/09/2022 9:34 AM EST Rx signed while sibling at a visit. Antonio Smalls MD documented in this encounterFairfield Medical Center11-08-2022 Instructions* Patient Instructions* Annia Hogan APRN.MERLIN - 05/07/2022 1:59 PM [...] in a wedge pillow. documented in this encounterFairfield Medical Center11-08-2022 History of Present illness Narrative* Annia Hogan APRN.ELECTRIC STOVE MECHANIC - 05/07/2022 1:33 PM EST CHIEF COMPLAINT: Patient presents with: Heartburn: Fatigue, her body feels tingly at times. US 04/29/22 Labs 04/04/22 ER/labs 04/11/22 This consult was requested by Antonio Smalls MD for an opinion regarding heartburn. My final recommendations will be communicated to the requesting health care provider by way of the shared medical record for internal providers or letter via the [employer] for external providers. HPI: Katie [...] has been having heartburn. PAtient reports going [place] [facility] for chest pain sharp stabbing sensation. [...] daily. for the 1st-10th of each month FAMILY HISTORY Problem Relation [...] which included preparing to see the patient, [id number] patient care, completing clinical documentation, obtaining and/or reviewing separately obtained history, performing a medically appropriate examination, counseling and educating the pat ient/family/caregiver, ordering medications, tests, or procedures, communicating with other HCPs (not separately reported), independently interpreting results (not separately reported), communicatingresults to the patient/family/caregiver, and care coordination (not separately reported). Annia Hogan APRN.MERLIN May 09, 2022 3:05 PM documented in this encounterFairfield Medical Center11-04-2022 Miscellaneous Notes* Telephone Encounter - Roseanna Dumont LPN - 05/03/2022 7:49 AM EDT Please review pt's TenTwenty7hart message in RR absence. Roseanna Dumont LPN documented in this encounterFairfield Medical Center11-01-2022 Miscellaneous Notes* Telephone Encounter - Dylan Aldridge RN - 04/30/2022 3:53 PM EDT patient notified via TenTwenty7hart message Dylan Aldridge RN * Telephone Encounter - Antonio Smalls MD - 04/30/2022 11:01 AM EDT Please let the patient/family know that the [...] visit. This note was partially generated using Portafare voice recognition system, and there may be some incorrect words, spellings, and punctuation that were not noted in checking the note before saving. Antonio Smalls MD documented in this encounterFairfield Medical Center10-31-2022 History of Present illness Narrative* Rebeca Chinchilla RDMS - 04/29/2022 9:15 AM EDT Radiology Service Progress Note PATIENT NAME: Katie Forde DATE OF SERVICE: April 29, 2022 TIME: 9:49 AM PATIENT IDENTITY VERIFICATION COMPLETED USING TWO (2) IDENTIFIERS: Name and Date of confirmedby patient verbally. FALL SCREENING: Has the patient [...] 29, 2022 9:49 AM documented in this encounterFairfield Medical Center10-21-2022 Miscellaneous Notes* Telephone Encounter - Eden Mcgee RN - 04/19/2022 9:20 AM EDT Spoke with patient, [facility] scheduling Eden Mcgee RN * Telephone Encounter - Antonio Smalls MD - 04/18/2022 5:40 PM EDT Referral/s needed are listed below. Unless also [...] placed. This note was partially generated using Portafare voice recognition system, and there may be some incorrect words, spellings, and punctuation that were not noted in checking the note before saving. Antonio Smalls MD documented in this encounterFairfield Medical Center10-20-2022 History of Present illness Narrative* Antonio Smalls MD - 04/18/2022 4:37 PM EDT The patient was seen for the issues [...] ordered or obtained, is reviewed by a screening nurse before being considered final. Additional recommendations may [...] abnormalities therefore additional evaluation was performed on August.No specific etiology was determined. She has since been receiving serial liver function tests and se dimentation rates. The sedimentation rate has remained mildly [...] clinically suspected and patient is not on gluten- free diet, histological diagnosis may be considered. HLA [...] 1.00 - 4.00 k/uL 3.96 4.89 (H) Winn% % 4.9 6.3 Abs Winn <0.87 k/uL 0.55 0.74 Eosin% % 1.3 [...] & Units 07/03/2020 07/12/2021 COVID 19 Source PARCEL CARRIER UPPER RESPIRATORY TRACT SWAB UPPER RESPIRATORY TRACT SWAB Influenza A PCR Negative for Influenza A by RT PCR Influenza B PCR Negative for Influenza B by RT PCR COVID 19 Result PARCEL CARRIER Negative for COVID19 (SARS CoV2) by RT-PCR [...] changes have occurred (weight has fluctuated, with maximumchange of approximately 10 pounds since July). Significant fatigue has been present more recently. She has a history of chronic migraines. No new headaches. No eye, ear, nose complaints. She has experienced intermittent throat complaints but does vape. No lymphadenopathy. Chest pain was present1 week ago when she was evaluated in [...] illness such as long COVID would be aconsideration. She also has complaints of diarrhea with [...] This included preparing to see the patient; [id number] patient care; obtaining and/or reviewing separately obtained history; performing a medically appropriate examination; counseling and educatingthe patient/family/caregiver; and completing clinical documentation. As applicable, this also included ordering medications, tests, or procedures; independently interpreting results; communicating results to the patient/family/caregiver; and care coordination (not separately reported). This note was partially generated using Portafare voice recognition system, and there may be some incorrect words, spellings, and punctuation that were not noted in checking the note before saving. Antonio Smalls M.D. documented in this encounterFairfield Medical Center10-07-2022 Miscellaneous Notes* Telephone Encounter - Eden Mcgee RN - 04/05/2022 1:21 PM EDT Patient notified, voiced understanding. Appointment scheduled Eden Mcgee RN * Telephone Encounter - Antonio Smalls MD - 04/05/2022 1:10 PM EDT Please let the patient know the following: [...] are showing improvement, the continued elevation in sedimentationrate would prompt a visit to be scheduled for potential additional evaluation. I would recommend scheduling a 30-minute fhwi-dy-jxhs visit. This note was created using a speech to text program. There may be some incorrect words, spellings,and punctuation that were missed on review. Antonio Smalls M.D. documented in this encounterFairfield Medical Center10-06-2022 Miscellaneous Notes* Telephone Encounter - Antonio Smalls MD - 04/04/2022 4:59 PM EDT The values are gradually returning towards normal. The ALT for example has returned almost 3/[address] back to normal (it was 212 seven months ago, 63 today). The AST was 144 seven months ago, 44 today. For some people this can be a slow process. No additional evaluation or treatment required atthis time. This note was partially generated using Portafare voice recognition system, and there may be some incorrect words, spellings, and punctuation that were not noted in checking the note before saving. Antonio Smalls MD * Telephone Encounter - Jo-Ann Carreon LPN - 04/04/2022 4:25 PM EDT Pt called back in and wonders if there is something she can do to help get her ALT and AST levels back to normal? * Telephone Encounter - Eden Mcgee RN - 04/04/2022 3:44 PM EDT Patient notified, voiced understanding Eden Mcgee RN * Telephone Encounter - Antonio Smalls MD - 04/04/2022 3:38 PM EDT AST and ALT have shown improvement since 5 months ago (but are not yet in the normal range). I would recommend rechecking in 6 months. This note was partially generated using Portafare voice recognition system, and there may be some incorrect words, spellings, and punctuation that were not noted in checking the note before saving. Antonio Smalls MD documented in this encounterFairfield Medical Center09-30-2022 History of Present illness Narrative* Suyapa Recinos MD - 03/29/2022 3:16 PM EDT Katie Forde is a 21 year old [...] C/o small swollen area by perineum, present watermelon inspector. 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 Declines contraception reassured about peianal skin tag Medical Decision Making: Medical Decision Making Level: 1 - N/A Suyapa Recinos MD documented in this encounterFairfield Medical Center09-14-2022 Miscellaneous Notes* Telephone Encounter - Eden Mcgee RN - 03/13/2022 8:58 AM EDT Left message to call the office, Widemilet message also sent Eden Mcgee RN * Telephone Encounter - Antonio Smalls MD - 03/12/2022 4:59 PM EDT Referral/s needed are listed below. Unless also [...] pain. This note was partially generated using Portafare voice recognition system, and there may be some incorrect words, spellings, and punctuation that were not noted in checking the note before saving. Antonio Smalls MD documented in this encounterFairfield Medical Center09-13-2022 History of Present illness Narrative* Antonio Smalls MD - 03/12/2022 1:55 PM EDT SomedayThe patient was seen for the issues [...] ordered or obtained, is reviewed by a screening nurse before being considered final. Additional recommendations may be made based on the final results. - Return to clinic should current symptoms (if present) worsen, other problems develop, or as needed. ADDITIONAL & DICTATED PORTION: ADDITIONAL HISTORY The following Nursing History was reviewed with the family: Patient presents with: Med Check: Med check - pt reports doing well, mom states same as before. No adverse effects per pt 1. The patient is currently on Adderall XR 40 mg each morning. She also takes regular Ritalin 20 mgin the afternoon. This is working well in [...] seen several times over the past 2 monthsfor this. Diagnosed with an ankle sprain as well as right foot pain. X-ray of the ankle was negative at a recent urgent care visit. X-ray of the right foot was also negative. The pain is at the ball of the foot. It is not showing improvement. The ankle pain has resolved. No edema or erythema in theregion of the foot pain. Review of systems [...] with her psychiatrist for the [place] and Jennail. 3. We will hold off restarting Topamax as patient has difficulty with consistency regarding daily medications. If headaches worsen this will be reconsidered. 4. Podiatry referral to reestablish care due to the right foot pain. I spent a total of 30-39 minutes on the date of service. This included preparing to see the patient; uuey-eb-sgas patient care; obtaining and/or reviewing separately obtained history; performing a medically appropriate examination; counseling and educatingthe patient/family/caregiver; and completing clinical documentation. As applicable, this also included ordering medications, tests, or procedures; independently interpreting results; communicating results to the patient/family/caregiver; and care coordination (not separately reported). This note was partially generated using Portafare voice recognition system, and there may be some incorrect words, spellings, and punctuation that were not noted in checking the note before saving. Antonio Smalls M.D. documented in this encounterFairfield Medical Center09-02-2022 Miscellaneous Notes* Telephone Encounter - Larry Joseph APRN.CNP - 03/01/2022 1:46 PM EDT Patient notified of bacterial growth in urine. She states she is still having frequency. Rx for Macrobid sent to pharmacy. Larry Joseph APRN.CNP documented in this encounterFairfield Medical Center08-31-2022 Instructions* Patient Instructions* Maye Rubalcava - 02/27/2022 3:05 PM EDT [...] analgesia. - Discussed expected course of illness Larry Joseph APRN.CNP documented in this encounterFairfield Medical Center08-31-2022 History of Present illness Narrative* Larry Jospeh APRN.CNP - 02/27/2022 3:01 PM EDT Subjective UTI Associated symptoms include frequency. Pertinent [...] nursing note reviewed. Exam conducted with a restaurant lead present. Constitutional: Appearance: She is obese. Cardiovascular: Rate and Rhythm: Normal rate and regular rhythm. Heart sounds: Normal heart sounds. Pulmonary: Effort: Pulmonary effort is normal. Breath sounds: Normal breath sounds. Abdominal: General: There is no distension. Palpations: Abdomen is soft. There is no mass. Tenderness: There is no abdominal tenderness. There is no right CVA tenderness, left CVA tendernessor guarding. Genitourinary: General: Normal vulva. Exam position: Lithotomy position. Labia: Right: No rash, tenderness or lesion. Left: No rash, tenderness or lesion. Vagina: Normal. Cervix: Discharge (light brown) present. Comments: Exam performed by SACK LIFTER student with [employer] restaurant lead/preceptor at bedside. Skin: General: Skin is warm and dry. Neurological: Mental Status: She is alert. ASSESSMENT/PLAN: 1. Abnormal urination - ICD9: 788.69, ICD10: R39.198 (primary diagnosis) - UA DIP, URINE (POC) - URINE CULTURE 2. Irregular periods - ICD9: 626.4, ICD10: N92.6 - HCG QUAL UR B/O ASSESSMENT/PLAN: 3. Acute vaginitis - ICD9: 616.10, ICD10: N76.0 - YEMIY / TRICHOMONAS AMPLIFICATION - BACTERIAL VAGINOSIS AMPLIFICATION - GC/CHLAMYDIA DNA DET Maye Rubalcava SACK LIFTER student - Follow-up with your PCP in 3-5 days if symptoms have not improved or sooner if symptoms worsen - Discussed red flags and need for immediate medical evaluation if any occur. - Discussed supportive care treatment with fluids, rest and analgesia. - Discussed expected course of illness TEACHING PROVIDER (Physician/PA/SACK LIFTER) NOTE OF PERSONAL INVOLVEMENT IN CARE: I have personally seen and examined the patient and performed the medical decision-making components. I have reviewed the Advanced Practice Registered Nurse (SACK LIFTER) Student's documentation and verified the findings in the note as written. Any additions or changes are noted in bold/italics. Signature: Larry Joseph Date: 02/27/2022 Time: 3:33 PM documented in this encounterFairfield Medical Center08-24-2022 Instructions* Patient Instructions* Larry Joseph APRN.CNP - 02/20/2022 7:22 PM EDT ASSESSMENT/PLAN: 1. Foot pain, right - ICD9: 729.5, ICD10: M79.671 (primary diagnosis) - XR FOOT GENERAL 3V AP/LAT/OBL RIGHT 2. Acute right ankle pain - ICD9: 719.47, 338.19, ICD10: M25.571 - XR ANKLE GENERAL 3V AP/LAT/OBL RIGHT IMPRESSION: RIGHT ANKLE: Within normal limits. No bone or joint abnormalities seen. RIGHT FOOT: Within normal limits. No acute findings. Fisher Purse Seine: SILVIANO Transcribe Date/Time: Feb 20 2022 7:11P [...] analgesia. - Discussed expected course of illness Larry Joseph APRN.CNP R.I.C.E. The general care of your injury [...] thin washcloth between the bag and your skin.Apply the ice bag to the area for at least 20 minutes. Do this at least 4 times per day. Using the ice for longer times and more frequently is OK. NEVER APPLY ICE DIRECTLY TO THE SKIN. COMPRESS: Compression means to apply pressure around the injured area such as with a splint, cast or an tone bandage. Compression decreases swelling and improves comfort. [...] pillows when lying down. documented in this encounterFairfield Medical Center08-24-2022 History of Present illness Narrative* Larry Joseph APRN.MERLIN - 02/20/2022 6:40 PM EDT Images from the original note were not [...] so she did not use it. She statesit hurts if she puts any pressure on it. Review of Systems Constitutional: Negative for fever. Musculoskeletal: Positive for joint pain. Negative for falls. Skin: Negative for itching and rash. BP 118/90 Pulse 108 Temp 37.2 C (99 F) Resp 21 Wt 129.8 kg (286 lb 3.2 oz) LMP 06/03/2021(Approximate) SpO2 100% BMI 39.24 kg/m PAST MEDICAL [...] FOOT: Within normal limits. No acute findings. Fisher Purse Seine: SILVIANO Transcribe Date/Time: Feb 20 2022 7:11P [...] analgesia. - Discussed expected course of illness Larry Joseph APRN.ELECTRIC STOVE MECHANIC documented in this encounterFairfield Medical Center08-03-2022 Miscellaneous Notes* Telephone Encounter - Estrellita Underwood PA-C - 01/30/2022 5:33 PM EDT The following approved medication requests have been transmitted electronically. PDMP website checked and validated. All prescriptions have been APPROPRIATELY filled. No suspiciousactivity was identified. 01/30/2022 by Estrellita Underwood PA-C [...] NANCY: No Authorizing Provider: ESTRELLITA UNDERWOOD PA-C * Telephone Encounter - Jo-Ann Velma BLACK - 01/30/2022 3:35 PM EDT Last [facility]: greater than one year ago Last ADHD [...] 03/20/2020 Jo-Ann Carreon LPN documented in this encounterFairfield Medical Center07-08-2022 Miscellaneous Notes* Telephone Encounter - Antonio Smalls MD - 01/04/2022 5:42 PM EDT SPECIFIC NOTES (if applicable): GENERAL INFORMATION - [...] were missed on review. Antonio Smalls M.D. * Telephone Encounter - Eden Mcgee RN - 01/04/2022 2:22 PM EDT Last [facility]: greater than one year ago Last ADHD [...] Td or Tdap) due on 03/20/2020 Eden Mcgee RN documented in this encounterFairfield Medical Center06-10-2022 Miscellaneous Notes* Telephone Encounter - Hemalatha Dejesus MD - 12/07/2021 2:50 PM EDT Patient's request for medication is as follows: [...] above. Please process accordingly. Hemalatha Dejesus MD * Telephone Encounter - Jo-Ann Carreon LPN - 12/07/2021 2:31 PM EDT Last [facility]: greater than one year ago Last ADHD [...] 03/20/2020 Jo-Ann Carreon LPN documented in this [facility]* Telephone Encounter - Kishor Abdul MD - 11/07/2021 5:09 PM EDT The following approved medication requests have been [...] Class: C-II NANCY: No Kishor Abdul MD * Telephone Encounter - Dylan Aldridge RN - 11/06/2021 2:07 PM EDT Last WCC: greater than one year ago [...] 03/20/2020 Dylan Aldridge RN [facility] M[facility]* Telephone Encounter - Sp Franco RN - 10/11/2021 8:19 AM EDT Patient aware. Sp Franco RN * Telephone Encounter - Antonio Smalls MD - 10/11/2021 8:01 AM EDT Please let the patient know that the AST and ALT continue to show significant improvement since thelast measurement. Sedimentation rate is essentially unchanged. I would recommend repeating the labsin 6 months. Order has been placed. This note was created using a speech to text program. There may be some incorrect words, spellings,and punctuation that were missed on review. Antonio Smalls M.D. [facility] Miscellaneous Notes* Telephone Encounter - Antonio Smalls MD - 10/09/2021 4:45 PM EDT SPECIFIC NOTES (if applicable): GENERAL INFORMATION - [...] were missed on review. Antonio Smalls M.D. * Telephone Encounter - Jo-Ann Carreon LPN - 10/09/2021 2:55 PM EDT Last WC: greater than one year ago Last ADHD [...] 03/20/2020 Jo-Ann Carreon LPN [facility] History of Past illness Narrative* Problem Noted Date Resolved Date Delayed immunizations 11/19/2012 01/23/2016 Viral warts, unspecified 06/25/2008 012 documented as of this encounter (statuses as of 10/09/2021) [facility]* Problem Noted Date Resolved Date Delayed immunizations 11/19/2012 01/23/2016 Viral warts, unspecified 06/25/2008 012 documented as of this encounter (statuses as of 10/11/2021) [facility]* Problem Noted Date Resolved Date Delayed immunizations 11/19/2012 01/23/2016 Viral warts, unspecified 06/25/2008 012 documented as of this encounter (statuses as of 11/07/2021) [facility]* Problem Noted Date Resolved Date Delayed immunizations 11/19/2012 01/23/2016 Viral warts, unspecified 06/25/2008 012 documented as of this encounter (statuses as of 12/07/2021) [facility]* Problem Noted Date Resolved Date Delayed immunizations 11/19/2012 01/23/2016 Viral warts, unspecified 06/25/2008 012 documented as of this encounter (statuses as of 01/04/2022) [facility]* Problem Noted Date Resolved Date Delayed immunizations 11/19/2012 01/23/2016 Viral warts, unspecified 06/25/2008 012 documented as of this encounter (statuses as of 01/31/2022) [facility]* Problem Noted Date Resolved Date Delayed immunizations 11/19/2012 01/23/2016 Viral warts, unspecified 06/25/2008 012 documented as of this encounter (statuses as of 02/20/2022) [facility] Problem Noted Date Resolved Date Delayed immunizations 11/19/2012 01/23/2016 Viral warts, unspecified 06/25/2008 012 documented as of this encounter (statuses as of 02/27/2022) [facility]* Problem Noted Date Resolved Date Delayed immunizations 11/19/2012 01/23/2016 Viral warts, unspecified 06/25/2008 012 documented as of this encounter (statuses as of 03/01/2022) [facility] Problem Noted Date Resolved Date Delayed immunizations 11/19/2012 01/23/2016 Viral warts, unspecified 06/25/2008 012 documented as of this encounter (statuses as of 03/12/2022) [facility] Problem Noted Date Resolved Date Delayed immunizations 11/19/2012 01/23/2016 Viral warts, unspecified 06/25/2008 012 documented as of this encounter (statuses as of 03/13/2022) [facility] Problem Noted Date Resolved Date Delayed immunizations 11/19/2012 01/23/2016 Viral warts, unspecified 06/25/2008 012 documented as of this encounter (statuses as of 03/29/2022) [facility] Problem Noted Date Resolved Date Delayed immunizations 11/19/2012 01/23/2016 Viral warts, unspecified 06/25/2008 012 documented as of this encounter (statuses as of 04/04/2022) [facility] Problem Noted Date Resolved Date Delayed immunizations 11/19/2012 01/23/2016 Viral warts, unspecified 06/25/2008 012 documented as of this encounter (statuses as of 04/05/2022) [facility] Problem Noted Date Resolved Date Delayed immunizations 11/19/2012 01/23/2016 Viral warts, unspecified 06/25/2008 012 documented as of this encounter (statuses as of 04/18/2022) [facility] Problem Noted Date Resolved Date Delayed immunizations 11/19/2012 01/23/2016 Viral warts, unspecified 06/25/2008 012 documented as of this encounter (statuses as of 04/19/2022) [facility] Problem Noted Date Resolved Date Delayed immunizations 11/19/2012 01/23/2016 Viral warts, unspecified 06/25/2008 012 documented as of this encounter (statuses as of 04/30/2022) [facility] Problem Noted Date Resolved Date Delayed immunizations 11/19/2012 01/23/2016 Viral warts, unspecified 06/25/2008 012 documented as of this encounter (statuses as of 05/09/2022) [facility] Problem Noted Date Resolved Date Delayed immunizations 11/19/2012 01/23/2016 Viral warts, unspecified 06/25/2008 012 documented as of this encounter (statuses as of 05/09/2022) [facility] Problem Noted Date Resolved Date Delayed immunizations 11/19/2012 01/23/2016 Viral warts, unspecified 06/25/2008 012 documented as of this encounter (statuses as of 05/13/2022) [facility] Problem Noted Date Resolved Date Delayed immunizations 11/19/2012 01/23/2016 Viral warts, unspecified 06/25/2008 012 documented as of this encounter (statuses as of 05/24/2022) [facility] Problem Noted Date Resolved Date Delayed immunizations 11/19/2012 01/23/2016 Viral warts, unspecified 06/25/2008 012 documented as of this encounter (statuses as of 05/30/2022) [facility] Problem Noted Date Resolved Date Delayed immunizations 11/19/2012 01/23/2016 Viral warts, unspecified 06/25/2008 012 documented as of this encounter (statuses as of 05/31/2022) [facility] Problem Noted Date Resolved Date Delayed immunizations 11/19/2012 01/23/2016 Viral warts, unspecified 06/25/2008 012 documented as of this encounter (statuses as of 06/03/2022) [facility] Problem Noted Date Resolved Date Delayed immunizations 11/19/2012 01/23/2016 Viral warts, unspecified 06/25/2008 012 documented as of this encounter (statuses as of 06/06/2022) [facility] Problem Noted Date Resolved Date Delayed immunizations 11/19/2012 01/23/2016 Viral warts, unspecified 06/25/2008 012 documented as of this encounter (statuses as of 06/07/2022) [facility] Problem Noted Date Resolved Date Delayed immunizations 11/19/2012 01/23/2016 Viral warts, unspecified 06/25/2008 012 documented as of this encounter (statuses as of 06/11/2022) [facility] Problem Noted Date Resolved Date Delayed immunizations 11/19/2012 01/23/2016 Viral warts, unspecified 06/25/2008 012 documented as of this encounter (statuses as of 06/11/2022) [facility] Problem Noted Date Resolved Date Delayed immunizations 11/19/2012 01/23/2016 Viral warts, unspecified 06/25/2008 012 documented as of this encounter (statuses as of 06/12/2022) [facility] Problem Noted Date Resolved Date Delayed immunizations 11/19/2012 01/23/2016 Viral warts, unspecified 06/25/2008 012 documented as of this encounter (statuses as of 06/13/2022) [facility] Problem Noted Date Resolved Date Delayed immunizations 11/19/2012 01/23/2016 Viral warts, unspecified 06/25/2008 012 documented as of this encounter (statuses as of 07/04/2022) [facility] Problem Noted Date Resolved Date Delayed immunizations 11/19/2012 01/23/2016 Viral warts, unspecified 06/25/2008 012 documented as of this encounter (statuses as of 07/04/2022) [facility] Problem Noted Date Resolved Date Delayed immunizations 11/19/2012 01/23/2016 Viral warts, unspecified 06/25/2008 012 documented as of this encounter (statuses as of 07/05/2022) [facility] Problem Noted Date Resolved Date Delayed immunizations 11/19/2012 01/23/2016 Viral warts, unspecified 06/25/2008 012 documented as of this encounter (statuses as of 07/06/2022) [facility] Problem Noted Date Resolved Date Delayed immunizations 11/19/2012 01/23/2016 Viral warts, unspecified 06/25/2008 012 documented as of this encounter (statuses as of 07/08/2022) [facility] Problem Noted Date Resolved Date Delayed immunizations 11/19/2012 01/23/2016 Viral warts, unspecified 06/25/2008 012 documented as of this encounter (statuses as of 07/09/2022) [facility] Problem Noted Date Resolved Date Delayed immunizations 11/19/2012 01/23/2016 Viral warts, unspecified 06/25/2008 012 documented as of this encounter (statuses as of 07/09/2022) [facility] Problem Noted Date Resolved Date Delayed immunizations 11/19/2012 01/23/2016 Viral warts, unspecified 06/25/2008 012 documented as of this encounter (statuses as of 07/18/2022) [facility] Problem Noted Date Resolved Date Delayed immunizations 11/19/2012 01/23/2016 Viral warts, unspecified 06/25/2008 012 documented as of this encounter (statuses as of 08/06/2022) [facility] Problem Noted Date Resolved Date Delayed immunizations 11/19/2012 01/23/2016 Viral warts, unspecified 06/25/2008 012 documented as of this encounter (statuses as of 08/07/2022) [facility] Problem Noted Date Resolved Date Delayed immunizations 11/19/2012 01/23/2016 Viral warts, unspecified 06/25/2008 012 documented as of this encounter (statuses as of 08/09/2022) [facility] Problem Noted Date Resolved Date Delayed immunizations 11/19/2012 01/23/2016 Viral warts, unspecified 06/25/2008 012 documented as of this encounter (statuses as of 08/15/2022) [facility] Problem Noted Date Resolved Date Delayed immunizations 11/19/2012 01/23/2016 Viral warts, unspecified 06/25/2008 012 documented as of this encounter (statuses as of 08/23/2022) [facility] Problem Noted Date Resolved Date Delayed immunizations 11/19/2012 01/23/2016 Viral warts, unspecified 06/25/2008 012 documented as of this encounter (statuses as of 08/27/2022) [facility] Problem Noted Date Resolved Date Delayed immunizations 11/19/2012 01/23/2016 Viral warts, unspecified 06/25/2008 012 documented as of this encounter (statuses as of 08/29/2022) [facility] Problem Noted Date Resolved Date Delayed immunizations 11/19/2012 01/23/2016 Viral warts, unspecified 06/25/2008 012 documented as of this encounter (statuses as of 09/02/2022) [facility] Problem Noted Date Resolved Date Delayed immunizations 11/19/2012 01/23/2016 Viral warts, unspecified 06/25/2008 012 documented as of this encounter (statuses as of 09/03/2022) [facility] Problem Noted Date Resolved Date Delayed immunizations 11/19/2012 01/23/2016 Viral warts, unspecified 06/25/2008 012 documented as of this encounter (statuses as of 09/05/2022) [facility] Problem Noted Date Resolved Date Delayed immunizations 11/19/2012 01/23/2016 Viral warts, unspecified 06/25/2008 012 documented as of this encounter (statuses as of 09/06/2022) [facility] Problem Noted Date Resolved Date Delayed immunizations 11/19/2012 01/23/2016 Viral warts, unspecified 06/25/2008 012 documented as of this encounter (statuses as of 09/09/2022) [facility] Problem Noted Date Resolved Date Delayed immunizations 11/19/2012 01/23/2016 Viral warts, unspecified 06/25/2008 012 documented as of this encounter (statuses as of 09/10/2022) [facility] Problem Noted Date Resolved Date Delayed immunizations 11/19/2012 01/23/2016 Viral warts, unspecified 06/25/2008 012 documented as of this encounter (statuses as of 09/10/2022) [facility] Problem Noted Date Resolved Date Delayed immunizations 11/19/2012 01/23/2016 Viral warts, unspecified 06/25/2008 012 documented as of this encounter (statuses as of 09/17/2022) [facility] Problem Noted Date Resolved Date Delayed immunizations 11/19/2012 01/23/2016 Viral warts, unspecified 06/25/2008 012 documented as of this encounter (statuses as of 09/30/2022) [facility] Problem Noted Date Resolved Date Delayed immunizations 11/19/2012 01/23/2016 Viral warts, unspecified 06/25/2008 012 documented as of this encounter (statuses as of 10/10/2022) [facility] Problem Noted Date Resolved Date Delayed immunizations 11/19/2012 01/23/2016 Viral warts, unspecified 06/25/2008 012 documented as of this encounter (statuses as of 10/10/2022) [facility] Problem Noted Date Resolved Date Delayed immunizations 11/19/2012 01/23/2016 Viral warts, unspecified 06/25/2008 012 documented as of this encounter (statuses as of 10/10/2022) [facility] Problem Noted Date Resolved Date Delayed immunizations 11/19/2012 01/23/2016 Viral warts, unspecified 06/25/2008 012 documented as of this encounter (statuses as of 10/12/2022) [facility] Problem Noted Date Resolved Date Delayed immunizations 11/19/2012 01/23/2016 Viral warts, unspecified 06/25/2008 012 documented as of this encounter (statuses as of 10/29/2022) [facility] Problem Noted Date Resolved Date Delayed immunizations 11/19/2012 01/23/2016 Viral warts, unspecified 06/25/2008 012 documented as of this encounter (statuses as of 11/04/2022) [facility] Problem Noted Date Resolved Date Delayed immunizations 11/19/2012 01/23/2016 Viral warts, unspecified 06/25/2008 012 documented as of this encounter (statuses as of 11/05/2022) [facility] Problem Noted Date Resolved Date Delayed immunizations 11/19/2012 01/23/2016 Viral warts, unspecified 06/25/2008 012 documented as of this encounter (statuses as of 11/09/2022) [facility] Problem Noted Date Resolved Date Delayed immunizations 11/19/2012 01/23/2016 Viral warts, unspecified 06/25/2008 012 documented as of this encounter (statuses as of 11/12/2022) [facility] Problem Noted Date Resolved Date Delayed immunizations 11/19/2012 01/23/2016 Viral warts, unspecified 06/25/2008 012 documented as of this encounter (statuses as of 11/29/2022) [facility] Problem Noted Date Resolved Date Delayed immunizations 11/19/2012 01/23/2016 Viral warts, unspecified 06/25/2008 012 documented as of this encounter (statuses as of 12/05/2022) [facility] Problem Noted Date Resolved Date Delayed immunizations 11/19/2012 01/23/2016 Viral warts, unspecified 06/25/2008 012 documented as of this encounter (statuses as of 12/25/2022) [facility] Problem Noted Date Resolved Date Delayed immunizations 11/19/2012 01/23/2016 Viral warts, unspecified 06/25/2008 012 documented as of this encounter (statuses as of 12/25/2022) [facility] Problem Noted Date Resolved Date Delayed immunizations 11/19/2012 01/23/2016 Viral warts, unspecified 06/25/2008 012 documented as of this encounter (statuses as of 12/26/2022) [facility] Problem Noted Date Resolved Date Delayed immunizations 11/19/2012 01/23/2016 Viral warts, unspecified 06/25/2008 012 documented as of this encounter (statuses as of 12/28/2022) [facility] Problem Noted Date Resolved Date Delayed immunizations 11/19/2012 01/23/2016 Viral warts, unspecified 06/25/2008 012 documented as of this encounter (statuses as of 01/03/2023) [facility] Problem Noted Date Diagnosed Date Resolved Date Delayed immunizations 11/19/20122015 Viral warts, unspecified 06/25/200803/2012 documented as of this encounter (statuses as of 01/10/2023) [facility] Problem Noted Date Diagnosed Date Resolved Date Delayed immunizations 11/19/20122015 Viral warts, unspecified 06/25/200803/2012 documented as of this encounter (statuses as of 01/10/2023) [facility] Problem Noted Date Diagnosed Date Resolved Date Delayed immunizations 11/19/20122015 Viral warts, unspecified 06/25/200803/2012 documented as of this encounter (statuses as of 01/11/2023) [facility] Problem Noted Date Diagnosed Date Resolved Date Delayed immunizations 11/19/20122015 Viral warts, unspecified 06/25/200803/2012 documented as of this encounter (statuses as of 01/13/2023) [facility] Problem Noted Date Diagnosed Date Resolved Date Delayed immunizations 11/19/20122015 Viral warts, unspecified 06/25/200803/2012 documented as of this encounter (statuses as of 01/14/2023) [facility] Problem Noted Date Diagnosed Date Resolved Date Delayed immunizations 11/19/20122015 Viral warts, unspecified 06/25/200803/2012 documented as of this encounter (statuses as of 01/14/2023) [address]23-2013 History of Past illness Narrative* Problem Noted Date Diagnosed Date Resolved Date Delayed immunizations 11/19/20122015 Viral warts, unspecified 06/25/200803/2012 documented as of this encounter (statuses as of 01/14/2023) [facility] Problem Noted Date Diagnosed Date Resolved Date Delayed immunizations 11/19/20122015 Viral warts, unspecified 06/25/200803/2012 documented as of this encounter (statuses as of 01/29/2023) [facility] Problem Noted Date Diagnosed Date Resolved Date Delayed immunizations 11/19/20122015 Viral warts, unspecified 06/25/200803/2012 documented as of this encounter (statuses as of 01/30/2023) [facility]* Problem Noted Date Diagnosed Date Resolved Date Delayed immunizations 11/19/20122015 Viral warts, unspecified 06/25/200803/2012 documented as of this encounter (statuses as of 02/06/2023) [facility] Problem Noted Date Diagnosed Date Resolved Date Delayed immunizations 11/19/20122015 Viral warts, unspecified 06/25/200803/2012 documented as of this encounter (statuses as of 02/19/2023) [facility] Problem Noted Date Diagnosed Date Resolved Date Delayed immunizations 11/19/20122015 Viral warts, unspecified 06/25/200803/2012 documented as of this encounter (statuses as of 02/25/2023) [facility]* Problem Noted Date Diagnosed Date Resolved Date Delayed immunizations 11/19/20122015 Viral warts, unspecified 06/25/200803/2012 documented as of this encounter (statuses as of 03/12/2023) [facility]* Problem Noted Date Diagnosed Date Resolved Date Delayed immunizations 11/19/20122015 Viral warts, unspecified 06/25/200803/2012 documented as of this encounter (statuses as of 03/12/2023) [facility]* Problem Noted Date Diagnosed Date Resolved Date Delayed immunizations 11/19/20122015 Viral warts, unspecified 06/25/200803/2012 documented as of this encounter (statuses as of 03/18/2023) [facility]* Problem Noted Date Diagnosed Date Resolved Date Delayed immunizations 11/19/20122015 Viral warts, unspecified 06/25/200803/2012 documented as of this encounter (statuses as of 03/21/2023) [facility]* Problem Noted Date Diagnosed Date Resolved Date Delayed immunizations 11/19/20122015 Viral warts, unspecified 06/25/200803/2012 documented as of this encounter (statuses as of 04/09/2023) [facility]* Problem Noted Date Diagnosed Date Resolved Date Delayed immunizations 11/19/20122015 Viral warts, unspecified 06/25/200803/2012 documented as of this encounter (statuses as of 04/16/2023) [facility]* Problem Noted Date Diagnosed Date Resolved Date Delayed immunizations 11/19/20122015 Viral warts, unspecified 06/25/200803/2012 documented as of this encounter (statuses as of 04/22/2023) [facility]* Problem Noted Date Diagnosed Date Resolved Date Delayed immunizations 11/19/20122015 Viral warts, unspecified 06/25/200803/2012 documented as of this encounter (statuses as of 05/04/2023) [facility] Problem Noted Date Diagnosed Date Resolved Date Delayed immunizations 11/19/20122015 Viral warts, unspecified 06/25/200803/2012 documented as of this encounter (statuses as of 05/04/2023) [facility]2013 History of Past illness Narrative* Problem Noted Date Diagnosed Date Resolved Date Delayed immunizations 11/19/20122015 Viral warts, unspecified 06/25/200803/2012 documented as of this encounter (statuses as of 05/04/2023) [facility]2013 History of Past illness Narrative* Problem Noted Date Diagnosed Date Resolved Date Delayed immunizations 11/19/20122015 Viral warts, unspecified 06/25/200803/2012 documented as of this encounter (statuses as of 05/14/2023) [facility]2013 History of Past illness Narrative* Problem Noted Date Diagnosed Date Resolved Date Delayed immunizations 11/19/20122015 Viral warts, unspecified 06/25/200803/2012 documented as of this encounter (statuses as of 05/15/2023) [facility] History of Past illness Narrative* Problem Noted Date Diagnosed Date Resolved Date Delayed immunizations 11/19/20122015 Viral warts, unspecified 06/25/200803/2012 documented as of this encounter (statuses as of 05/20/2023) [facility] History of Past illness Narrative* Problem Noted Date Diagnosed Date Resolved Date Delayed immunizations 11/19/20122015 Viral warts, unspecified 06/25/200803/2012 documented as of this encounter (statuses as of 07/06/2023) [facility] History of Past illness Narrative* Problem Noted Date Diagnosed Date Resolved Date Delayed immunizations 11/19/20122015 Viral warts, unspecified 06/25/200803/2012 documented as of this encounter (statuses as of 08/11/2023) [facility] History of Past illness Narrative* Problem Noted Date Diagnosed Date Resolved Date Delayed immunizations 11/19/20122015 Viral warts, unspecified 06/25/200803/2012 documented as of this encounter (statuses as of 08/11/2023) [facility] History of Past illness Narrative* Problem Noted Date Diagnosed Date Resolved Date Delayed immunizations 11/19/20122015 Viral warts, unspecified 06/25/200803/2012 documented as of this encounter (statuses as of 08/13/2023) [address]23-2013 History of Past illness Narrative* Problem Noted Date Diagnosed Date Resolved Date Delayed immunizations 11/19/20122015 Viral warts, unspecified 06/25/200803/2012 documented as of this encounter (statuses as of 08/18/2023) [address]23-2013 History of Past illness Narrative* Problem Noted Date Diagnosed Date Resolved Date Delayed immunizations 11/19/20122015 Viral warts, unspecified 06/25/200803/2012 documented as of this encounter (statuses as of 08/27/2023) [facility] History of Past illness Narrative* Problem Noted Date Diagnosed Date Resolved Date Delayed immunizations 11/19/20122015 Viral warts, unspecified 06/25/200803/2012 documented as of this encounter (statuses as of 09/11/2023) [facility] History of Past illness Narrative* Problem Noted Date Diagnosed Date Resolved Date Delayed immunizations 11/19/20122015 Viral warts, unspecified 06/25/200803/2012 documented as of this encounter (statuses as of 09/30/2023) [address]23-2013 History of Past illness Narrative* Problem Noted Date Diagnosed Date Resolved Date Delayed immunizations 11/19/20122015 Viral warts, unspecified 06/25/200803/2012 documented as of this encounter (statuses as of 10/09/2023) [facility] Diagnosis Attention deficit hyperactivity disorder (ADHD), combined type [facility] Diagnosis Abnormal laboratory test- Primary Other abnormal clinical finding [facility] Diagnosis Attention deficit hyperactivity disorder (ADHD), combined type [facility] Diagnosis Attention deficit hyperactivity disorder (ADHD), combined type [facility] noteNo assessment information availableWEast [facility] Work [facility]* Diagnosis Attention deficit hyperactivity disorder (ADHD), combined type documented in this encounter [facility] note* Diagnosis Foot pain, right- Primary Pain in limb Acute right ankle pain documented in this encounter [facility] note* Diagnosis Abnormal urination- Primary Other abnormality of urination Irregular periods Irregular menstrual cycle Acute vaginitis Vaginitis and vulvovaginitis, unspecified documented in this encounter [facility] note* Diagnosis Urinary tract infection without hematuria, site unspecified- Primary documented in this encounter [facility] note* Diagnosis Attention deficit hyperactivity disorder (ADHD), combined type- Primary Migraine without status migrainosus, not intractable, unspecified migraine type Anxiety Anxiety state, unspecified Pain in right foot Pain in limb Encounter for immunization Need for other specified prophylactic vaccination against single bacterial disease documented in this encounter [facility] note* Diagnosis Skin tag of anus- Primary Residual hemorrhoidal skin tags Irregular menstrual cycle [facility] Diagnosis Abnormal laboratory test- Primary Other abnormal clinical finding documented in this encounter [facility] note* Diagnosis Abnormal laboratory test- Primary Other abnormal clinical finding Malaise and fatigue Other malaise and fatigue Diarrhea, unspecified type Abdominal pain, unspecified abdominal location documented in this encounter [facility] note* Diagnosis Attention deficit hyperactivity disorder (ADHD), combined type documented in this encounter [facility] note* Diagnosis Fatty liver- Primary Other chronic nonalcoholic liver disease Abnormal laboratory test Other abnormal clinical finding Malaise and fatigue Other malaise and fatigue Diarrhea, unspecified type Abdominal pain, unspecified abdominal location Nausea Nausea alone documented in this encounter [facility] note* Diagnosis Irregular menstrual cycle- Primary [facility]* Diagnosis Attention deficit hyperactivity disorder (ADHD), combined type [facility]* Diagnosis Attention deficit hyperactivity disorder (ADHD), combined type [facility] Diagnosis Fatty liver- Primary Other chronic nonalcoholic liver disease Elevated LFTs Other abnormal blood chemistry documented in this encounter [facility] note* Diagnosis Chronic rhinitis- Primary Dysfunction of both eustachian tubes Dysfunction of Eustachian tube Chronic cough Cough Shortness of breath [facility] Diagnosis Fatty liver- Primary Other chronic nonalcoholic liver disease Elevated LFTs Other abnormal blood chemistry [facility] Diagnosis Attention deficit hyperactivity disorder (ADHD), combined type [facility] Diagnosis Attention deficit hyperactivity disorder (ADHD), combined type [facility]* Diagnosis Sinobronchitis- Primary Unspecified sinusitis (chronic) [facility] Diagnosis Fatty liver- Primary Other chronic nonalcoholic liver disease Malaise and fatigue Other malaise and fatigue [facility] Diagnosis Vitamin D deficiency- Primary Unspecified vitamin D deficiency [facility] Diagnosis Attention deficit hyperactivity disorder (ADHD), combined type [facility] Diagnosis Leukocytosis, unspecified type- Primary Thrombocytosis Essential thrombocythemia [facility]* Diagnosis Sore throat- Primary Acute pharyngitis [facility] Diagnosis Suspected sleep apnea- Primary Malaise and fatigue Other malaise and fatigue Snoring Other dyspnea and respiratory abnormality Chronic fatigue Other malaise and fatigue [facility]* Diagnosis Obesity, Class III, BMI >= 40- Primary Morbid obesity Precordial pain [facility] Diagnosis Attention deficit hyperactivity disorder (ADHD), combined type [facility] Diagnosis Migraine without status migrainosus, not [...] 40 Morbid obesity [facility]* Diagnosis URI, acute- Primary Acute upper respiratory infections of unspecified site Acute otitis media, left Unspecified otitis media [facility] Diagnosis SOBOE (shortness of breath on exertion) Shortness of breath [facility] Diagnosis ESTEBAN (obstructive sleep apnea)- Primary Obstructive sleep apnea (adult) (pediatric) documented in this encounter [facility] note* Diagnosis Attention deficit hyperactivity disorder (ADHD), combined type [facility]* Diagnosis Sore throat- Primary Acute pharyngitis Other acute nonsuppurative otitis media of right ear, recurrence not specified documented in this encounter [facility] note* Diagnosis Attention deficit hyperactivity disorder (ADHD), combined type documented in this encounter [facility] note* Diagnosis Vaginal discharge- Primary Leukorrhea, not specified as infective documented in this encounter [facility] note* Diagnosis ESTEBAN (obstructive sleep apnea)- Primary Obstructive sleep apnea (adult) (pediatric) documented in this encounter [facility] note* Diagnosis Attention deficit hyperactivity disorder (ADHD), combined type documented in this encounter [facility] note* Diagnosis Leukocytosis, unspecified type- Primary Thrombocytosis Essential thrombocythemia documented in this encounter [facility] note* Diagnosis Attention deficit hyperactivity disorder (ADHD), combined type- Primary Migraine without status migrainosus, not intractable, unspecified migraine type Heartburn documented in this encounter [facility] note* Diagnosis ESTEBAN (obstructive sleep apnea)- Primary Obstructive sleep apnea (adult) (pediatric) ESTEBAN on CPAP Obstructive sleep apnea (adult) (pediatric) [facility]* Diagnosis Attention deficit hyperactivity disorder (ADHD), combined type documented in this encounter [facility] note* Diagnosis Protracted URI- Primary Acute upper respiratory infections of unspecified site Non-recurrent acute serous otitis media of right ear documented in this encounter [facility] note* Diagnosis Secondary amenorrhea- Primary Absence of menstruation Missed menses Absence of menstruation documented in this encounter [facility] note* Diagnosis Attention deficit hyperactivity disorder (ADHD), combined type [facility]* Diagnosis Fatty liver- Primary Other chronic nonalcoholic liver disease Elevated LFTs Other abnormal blood chemistry Intermittent diarrhea [facility]* Diagnosis Fatty liver Other chronic nonalcoholic liver disease Elevated LFTs Other abnormal blood chemistry [facility]* Diagnosis Secondary amenorrhea Absence of menstruation [facility] Diagnosis Abnormal laboratory test Other abnormal clinical finding Malaise and fatigue Other malaise and fatigue Diarrhea, unspecified type Abdominal pain, unspecified abdominal location [facility]* Diagnosis Vaginal odor- Primary Unspecified symptom associated with female genital organs [facility]* Diagnosis Attention deficit hyperactivity disorder (ADHD), combined type documented in this encounter [facility] note* Diagnosis Attention deficit hyperactivity disorder [...] single bacterial disease [facility]* Diagnosis Vaginal itching- Primary Pruritus of genital organs Vaginal odor Unspecified symptom associated with female genital organs Dysuria [facility]* Diagnosis Contusion of right hand, subsequent encounter- Primary [facility]* Diagnosis Exposure to SARS-associated coronavirus- Primary [facility]* Diagnosis Leukocytosis, unspecified type- Primary Thrombocytosis Essential thrombocythemia [facility]* Diagnosis Vaginal discharge- Primary Leukorrhea, not specified as infective Vaginal itching Pruritus of genital organs [facility]* Diagnosis Migraine without status migrainosus, not intractable, unspecified migraine type- Primary Attention deficit hyperactivity disorder (ADHD), combined type Vaping nicotine dependence, non-tobacco product Recurrent major depressive disorder, in partial remission ([facility]) documented in this encounter [facility] note* Diagnosis Sore throat- Primary Acute pharyngitis Bacterial sinusitis Unspecified sinusitis (chronic) [facility]* Diagnosis NAFLD (nonalcoholic fatty liver disease)- Primary Other chronic nonalcoholic liver disease Diarrhea, unspecified type Gastroesophageal reflux disease, unspecified whether esophagitis present [facility]* Diagnosis NAFLD (nonalcoholic fatty liver disease)- Primary Other chronic nonalcoholic liver disease NAFLD (nonalcoholic fatty liver disease) Other chronic nonalcoholic liver disease Autoantibody titer positive Other and unspecified nonspecific immunological findings [facility]* Diagnosis Attention deficit hyperactivity disorder (ADHD), combined type NAFLD (nonalcoholic fatty liver disease) Other chronic nonalcoholic liver disease Autoantibody titer positive Other and unspecified nonspecific immunological findings [facility]* Diagnosis Right upper quadrant abdominal pain- Primary Abdominal pain, right upper quadrant [facility]* Diagnosis Attention deficit hyperactivity disorder (ADHD), combined type [facility]* Diagnosis Vaginal itching- Primary Pruritus of genital organs [facility]* Diagnosis Migraine without status migrainosus, not intractable, unspecified migraine type- Primary Attention deficit hyperactivity disorder (ADHD), combined type Impacted cerumen of right ear Impacted cerumen Acute otitis externa of right ear, unspecified type [facility]* Diagnosis Attention deficit hyperactivity disorder (ADHD), combined type [facility]* Diagnosis Right hand pain- Primary Pain in limb Right hand pain Pain in limb [facility]* Diagnosis Foot injury, left, initial encounter- Primary Foot injury, left, initial encounter [facility]* Diagnosis Nausea- Primary Nausea alone Acid indigestion Dyspepsia and other specified disorders of function of stomach [facility]* Diagnosis Attention deficit hyperactivity disorder (ADHD), combined type [facility]* Diagnosis Amenorrhea Absence of menstruation [facility]* Diagnosis Type 2 diabetes mellitus without complication, without long-term current use of insulin (HCC)- Primary Fatty liver Other chronic nonalcoholic liver disease Obesity, Class III, BMI >= 40 Morbid obesity Adenomyosis Endometriosis of uterus [facility]* Diagnosis Amenorrhea- Primary Absence of menstruation Medication management Encounter for long-term (current) use of other medications Amenorrhea Absence of menstruation [facility]* Diagnosis Vaginal discharge- Primary Leukorrhea, not specified as infective [facility]* Diagnosis Type 2 diabetes mellitus without complication, without long-term current use of insulin (HCC) Fatty liver Other chronic nonalcoholic liver disease Obesity, Class III, BMI >= 40 Morbid obesity [facility]* Diagnosis Attention deficit hyperactivity disorder (ADHD), combined type [facility]* Diagnosis Vaginal yeast infection- Primary Candidiasis of vulva and vagina [facility] Diagnosis Rhinosinusitis- Primary Unspecified sinusitis (chronic) [facility] Diagnosis Right hand pain Pain in limb [facility]* Diagnosis Vaginal yeast infection- Primary Candidiasis of vulva and vagina [facility]* Diagnosis Migraine without status migrainosus, not intractable, unspecified migraine type [facility]* Diagnosis Foot injury, left, initial encounter [facility]* Diagnosis Right hand pain Pain in limb [facility]* Diagnosis Attention deficit hyperactivity disorder (ADHD), combined type [facility]* Diagnosis Type 2 diabetes mellitus without complication, without long-term current use of insulin (HCC)- Primary Fatty liver Other chronic nonalcoholic liver disease Obesity, Class III, BMI >= 40 Morbid obesity Vapes nicotine containing substance Encounter for immunization Need for other specified prophylactic vaccination against single bacterial disease Encounter for therapeutic drug monitoring Screening for lipid disorders [facility] Diagnosis Acute right ankle pain Foot pain, right Pain in limb [facility]* Diagnosis Injury of toe on right foot, initial encounter [facility]* Diagnosis Chronic vaginitis- Primary Vaginitis and vulvovaginitis, unspecified [facility]* Diagnosis Attention deficit hyperactivity disorder (ADHD), combined type [facility]* Diagnosis Type 2 diabetes mellitus without complication, without long-term current use of insulin (HCC)- Primary Urinary frequency Migraine without status migrainosus, not intractable, unspecified migraine type Vaginal yeast infection Candidiasis of vulva and vagina [facility]* Diagnosis Vaginal discharge- Primary Leukorrhea, not specified as infective Vaginal itching Pruritus of genital organs Vulvar itching Pruritus of genital organs [facility]* Diagnosis Chronic infection- Primary Unspecified infectious and parasitic diseases Vaginal yeast infection Candidiasis of vulva and vagina [facility]* Diagnosis Attention deficit hyperactivity disorder (ADHD), combined type [facility]* Diagnosis Acute non-recurrent frontal sinusitis- Primary [facility]* Diagnosis Attention deficit hyperactivity disorder (ADHD), combined type [facility]* Diagnosis Acid indigestion Dyspepsia and other specified disorders of function of stomach [facility]* Diagnosis Attention deficit hyperactivity disorder (ADHD), combined type- Primary Myalgia Mylagia and myositis, unspecified Elevated LFTs Other abnormal blood chemistry Nausea and vomiting, unspecified vomiting type Gastroesophageal reflux disease, unspecified whether esophagitis present Migraine without status migrainosus, not intractable, unspecified migraine type Controlled type 2 diabetes mellitus without complication, without long-term current use of insulin (HCC) Eczema, unspecified type Encounter for immunization Need for other specified prophylactic vaccination against single bacterial disease Encounter for long-term current use of medication [facility] Diagnosis Acute recurrent sinusitis, unspecified location- Primary [facility] Diagnosis Marfan's syndrome- Primary PVC (premature ventricular contraction) Other premature beats [facility] Diagnosis Type 2 diabetes mellitus without complication, without long-term current use of insulin (HCC) Fatty liver Other chronic nonalcoholic liver disease Obesity, Class III, BMI >= 40 Morbid obesity [facility] Diagnosis Attention deficit hyperactivity disorder (ADHD), combined type [facility] Diagnosis Vulvar irritation- Primary Other specified noninflammatory disorder of vulva and perineum [facility] Diagnosis Vertigo- Primary Dizziness and giddiness Leukocytosis, unspecified type Thrombocytosis Essential thrombocythemia Dysfunction of both eustachian tubes Dysfunction of Eustachian tube Otalgia of both ears Otalgia, unspecified Depersonalization disorder (HCC) Depersonalization disorder Other fatigue Fatty (change of) liver, not elsewhere classified Obstructive sleep apnea syndrome Obstructive sleep apnea (adult) (pediatric) Migraine without status migrainosus, not intractable, unspecified migraine type [facility] Diagnosis Numbness and tingling- Primary Disturbance of skin sensation [facility] Diagnosis Vulvar itching- Primary Pruritus of genital organs Missed menses Absence of menstruation [facility] Diagnosis Leukocytosis, unspecified type- Primary [facility]* Diagnosis Generalized anxiety disorder with panic attacks- Primary Lightheaded Dizziness and giddiness Dizziness Dizziness and giddiness Numbness and tingling Disturbance of skin sensation Palpitations Type 2 diabetes mellitus without complication, without long-term current use of insulin (HCC) [facility] Diagnosis Generalized anxiety disorder with panic attacks- Primary Panic attacks Panic disorder without agoraphobia Palpitations Insomnia due to mental disorder Post-traumatic stress disorder Posttraumatic stress disorder [facility] Diagnosis Generalized anxiety disorder with panic attacks- Primary Panic attacks Panic disorder without agoraphobia Type 2 diabetes mellitus without complication, without long-term current use of insulin (HCC) Fatty liver Other chronic nonalcoholic liver disease Obesity, Class III, BMI >= 40 Morbid obesity Migraine without status migrainosus, not intractable, unspecified migraine type Attention deficit hyperactivity disorder (ADHD), combined type [facility]* Diagnosis Acute bronchitis, unspecified organism- Primary Lightheaded Dizziness and giddiness Dizziness Dizziness and giddiness Moderate episode of recurrent major depressive disorder (HCC) Generalized anxiety disorder with panic attacks Dandruff Other seborrheic dermatitis Seborrheic dermatitis Seborrheic dermatitis, unspecified Attention deficit hyperactivity disorder (ADHD), combined type [facility] Additional Instructions Ibuprofen as needed for pain. May add Tylenol to this if you need to. May also ice the affected area if you need to and elevate if swollen.[facility] Work Phone: Hospital Discharge instructions Additional Instructions Please return to the ER should you have any further concerns or worsening of [facility] Work [facility]: [facility] Discharge instructions Additional Instructions Thank you for trusting us with your care today! Your labs and images were reassuring. No sign of a life or limb threatening pathology was noted. Please increase your fluid intake. Recommend Body Armor, Pedialyte and Gatorade. Please take Tylenol (2 pills, 650 mg), ibuprofen (2 pills, 400 mg) every 6 hours as needed for pain and fever control. Please return to the emergency department if your symptoms change or worsen. Please follow with your primary care physician for further outpatient evaluation and management.[facility] Work Phone: Hospital Discharge instructions Additional Instructions CT brain negative. EKG normal. Thyroid studies electrolytes normal. Labs with leukocytosis white count of 16.7. No clinical signs of infection. Follow-up with Dr. Saez hematology for further workup if needed. With paresthesias recurrent nonspecific follow-up with neurology, Dr. Bacon for further workup if needed.[facility] Work Phone: Reason for referral (narrative)* Diagnostic Procedure Only (Urgent) - Closed Specialty Diagnoses / Procedures Referred By Contac t Referred To Contact XR IMAGING Diagnoses Foot pain, right Procedures XR FOOT GENERAL 3V AP/LAT/OBL RIGHT RADEX FOOT COMPLETE MINIMUM 3 VIEWS Larry Joseph APRN.ELECTRIC STOVE MECHANIC [address] [id number] X[facility] Imaging Referral ID Status Reason Start Date Expiration Date V isits Requested Visits Authorized [id number] Closed Auto-Generate d Referral 02/20/2022 03/22/2023 1 1 * Diagnostic Procedure Only (Urgent) - Closed Specialty Diagnoses / Procedures Referred By Contac t Referred To Contact XR IMAGING Diagnoses Acute right ankle pain Procedures XR ANKLE GENERAL 3V AP/LAT/OBL RIGHT RADEX ANKLE COMPLETE MINIMUM 3 VIEWS Larry Joseph APRN.ELECTRIC STOVE MECHANIC [address] [place] [address] Xr Imaging Referral ID Status Reason Start Date Expiration Date V isits Requested Visits Authorized [id number] Closed Auto-Generate d Referral 02/20/2022 03/22/2023 1 1 [facility] for referral (narrative)* Diagnostic Procedure Only (Routine) - Pending Review Specialty Diagnoses / Procedures Referred By Contac t Referred To Contact MOLECULAR & FUNCTIONAL IMAGING Diagnoses Nausea Procedures NM HEPATOBILIARY W EF AND/OR RX HEPATOBIL SYST IMAG INC GB W/PHARMA INTERVENJ Annia Hogan APRN.ELECTRIC STOVE MECHANIC [address] [place] [address] Molecular & Functional Imaging [address] [place] [address] Referral ID Status Reason Start Date Expiration Date Visits Requested Visits Authorized [id number] Pending Review Auto-Generat ed Referral 05/07/2022 06/06/2023 1 1 * Outpatient Procedure (Routine) - Pending Review Specialty Diagnoses / Procedures Referred By Contac t Referred To Contact [facility] Diagnoses Abnormal laboratory test Fatty liver Procedures DDI VIBRATION CONTROLLED TRANSIENT ELASTOGRAPHY (VCTE) LIVER ELASTOGRAPHY W/O IMAG W/I&R Annia Hogan APRN.ELECTRIC STOVE MECHANIC [address] [place] [address] [facility] [address] [place] [address] Referral ID Status Reason Start Date Expiration Date Visits Requested Visits Authorized [id number] Pending Review Auto-Generat ed Referral 05/07/2022 05/07/2023 1 1 [facility] for referral (narrative)* Outpatient Procedure (Routine) - Authorized Specialty Diagnoses / Procedures Referred By Contac t Referred To Contact [facility] Diagnoses SOBOE (shortness of breath on exertion) Procedures SPIROMETRY WITH DILATOR IF OBSTRUCTED BRNCDILAT RSPSE SPMTRY PRE&POST-BRNCDILAT ADMN 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 APRN.[employer] ROD INSERTER [address] [place] [address] [facility] [address] [place] [id number] Referral ID Status Reason Start Date Expiration Date Visits Requested Visits Authorized [id number] Authorized Auto-Generat ed Referral 10/28/2022 11/27/2023 1 1 [facility] for referral (narrative)* Diagnostic Procedure Only (Routine) - Authorized Specialty Diagnoses / Procedures Referred By Contac t Referred To Contact US IMAGING Diagnoses Secondary amenorrhea Procedures US FEMALE PELVIS TRANSVAG US TRANSVAGINAL Kelly Nunez APRN.CNM [address] [place] [address] [place] [address] Referral ID Status Reason Start Date Expiration Date Visits Requested Visits Authorized [id number] Authorized Auto-Generat ed Referral 3 05/08/2024 1 1 [facility] for referral (narrative)* Diagnostic Procedure Only (Routine) - Authorized Specialty Diagnoses / Procedures Referred By Contac t Referred To Contact US IMAGING Diagnoses Fatty liver Elevated LFTs Procedures US ABD RIGHT UPPER QUADRANT US ABDOMINAL REAL TIME W/IMAGE LIMITED Zuleika Avalos PA-C [address] [facility] [place] [address] [place] [address] Referral ID Status Reason Start Date Expiration Date Visits Requested Visits Authorized [id number] Authorized Auto-Generat ed Referral 05/21/2024 1 1 [facility] for referral (narrative)* Diagnostic Procedure Only (Routine) - Closed Specialty Diagnoses / Procedures Referred By Contac t Referred To Contact US IMAGING Diagnoses Fatty liver Elevated LFTs Procedures US ABD RIGHT UPPER QUADRANT US ABDOMINAL REAL TIME W/IMAGE LIMITED Zuleika Avalos PA-C [address] [facility] [place] [address] [place] [address] Referral ID Status Reason Start Date Expiration Date V isits Requested Visits Authorized [id number] Closed Auto-Generate d Referral 04/22/2023 05/21/2024 1 1 [facility] for referral (narrative)* Diagnostic Procedure Only (Routine) - Closed Specialty Diagnoses / Procedures Referred By Contac t Referred To Contact US IMAGING Diagnoses Secondary amenorrhea Procedures US FEMALE PELVIS TRANSVAG US TRANSVAGINAL Kelly Nunez APRN.CNM [address] [place] [address] [place] [address] Referral ID Status Reason Start Date Expiration Date V isits Requested Visits Authorized [id number] Closed Auto-Generate d Referral 04/09/2023 05/08/2024 1 1 [facility] for referral (narrative)* Diagnostic Procedure Only (Routine) - Closed Specialty Diagnoses / Procedures Referred By Contac t Referred To Contact US IMAGING Diagnoses Abnormal laboratory test Malaise and fatigue Diarrhea, unspecified type Abdominal pain, unspecified abdominal location Procedures US ABD RT UPPER QUADRANT US ABDOMINAL REAL TIME W/IMAGE LIMITED Antonio Smalls MD [address] [place] [address] [place] [address] Referral ID Status Reason Start Date Expiration Date V isits Requested Visits Authorized [id number] Closed Auto-Generate d Referral 04/18/2022 05/18/2023 1 1 [facility] for referral (narrative)* Diagnostic Procedure Only (Urgent) - Closed Specialty Diagnoses / Procedures Referred By Contac t Referred To Contact XR IMAGING Diagnoses Foot injury, left, initial encounter Procedures XR FOOT GENERAL 3V AP/LAT/OBL LEFT RADEX FOOT COMPLETE MINIMUM 3 VIEWS Larry Joseph, HARLAN.ELECTRIC STOVE MECHANIC [address] [place] [address] [place] [address] Referral ID Status Reason Start Date Expiration Date V isits Requested Visits Authorized [id number] Closed Auto-Generate d Referral 12/22/2023 01/20/2025 1 1 [facility] for referral (narrative)* Diagnostic Procedure Only (Routine) - Closed Specialty Diagnoses / Procedures Referred By Contac t Referred To Contact [facility] Diagnoses Amenorrhea Procedures PELVIC US WHI US PELVIC NONOBSTETRIC REAL-TIME IMAGE COMPLETE Pat Ferrer APRN.ELECTRIC STOVE MECHANIC [address] [place] [address] [facility] [address] [place] [address] Referral ID Status Reason Start Date Expiration Date V isits Requested Visits Authorized [id number] Closed Auto-Generate d Referral 01/22/2024 01/21/2025 1 1 [facility] for referral (narrative)* Diagnostic Procedure Only (Urgent) - Closed Specialty Diagnoses / Procedures Referred By Contac t Referred To Contact XR IMAGING Diagnoses Foot injury, left, initial encounter Procedures XR FOOT GENERAL 3V AP/LAT/OBL LEFT RADEX FOOT COMPLETE MINIMUM 3 VIEWS Larry Joseph APRN.ELECTRIC STOVE MECHANIC [address] [place] [address] [place] [address] Referral ID Status Reason Start Date Expiration Date V isits Requested Visits Authorized [id number] Closed Auto-Generate d Referral 12/22/2023 01/20/2025 1 1 [facility] for referral (narrative)* Diagnostic Procedure Only (Urgent) - Closed Specialty Diagnoses / Procedures Referred By Contac t Referred To Contact XR IMAGING Diagnoses Right hand pain Procedures XR HAND GENERAL 3V PA/LAT/OBL RIGHT RADEX HAND MINIMUM 3 VIEWS Dusty García APRN.ELECTRIC STOVE MECHANIC [address] [place] [address] [place] [address] Referral ID Status Reason Start Date Expiration Date V isits Requested Visits Authorized [id number] Closed Auto-Generate d Referral 12/17/2023 01/15/2025 1 1 [facility] for referral (narrative)* Diagnostic Procedure Only (Urgent) - Closed Specialty Diagnoses / Procedures Referred By Contac t Referred To Contact XR IMAGING Diagnoses Foot pain, right Procedures XR FOOT GENERAL 3V AP/LAT/OBL RIGHT RADEX FOOT COMPLETE MINIMUM 3 VIEWS Larry Joseph APRN.ELECTRIC STOVE MECHANIC [address] [place] [address] [place] [address] Referral ID Status Reason Start Date Expiration Date V isits Requested Visits Authorized [id number] Closed Auto-Generate d Referral 02/20/2022 03/22/2023 1 1 * Diagnostic Procedure Only (Urgent) - Closed Specialty Diagnoses / Procedures Referred By Contac t Referred To Contact XR IMAGING Diagnoses Acute right ankle pain Procedures XR ANKLE GENERAL 3V AP/LAT/OBL RIGHT RADEX ANKLE COMPLETE MINIMUM 3 VIEWS Larry Joseph APRN.ELECTRIC STOVE MECHANIC [address] [place] [address] [place] [address] Referral ID Status Reason Start Date Expiration Date V isits Requested Visits Authorized [id number] Closed Auto-Generate d Referral 02/20/2022 03/22/2023 1 1 [facility] for referral (narrative)* Diagnostic Procedure Only (Routine) - Closed Specialty Diagnoses / Procedures Referred By Contac t Referred To Contact XR IMAGING Diagnoses Injury of toe on right foot, initial encounter Procedures XR TOE AP/LAT/OBL RIGHT X-RAY TOE(S) Antonio Smalls MD [address] [place] [address] [place] [address] Referral ID Status Reason Start Date Expiration Date V isits Requested Visits Authorized [id number] Closed Auto-Generate d Referral 07/12/2021 08/11/2022 1 1 [facility] for referral (narrative)No reason for referral information available[facility] Work Phone: Reason for visit Narrative* Diagnostic Procedure Only (Routine) - Closed Specialty Diagnoses / Procedures Referred By Contac t Referred To Contact [facility] Diagnoses Amenorrhea Procedures PELVIC US WHI US PELVIC NONOBSTETRIC REAL-TIME IMAGE COMPLETE Pat Ferrer, SACK LIFTER.ELECTRIC STOVE MECHANIC [address] [place] [address] [facility] [address] [place] [address] Referral ID Status Reason Start Date Expiration Date V isits Requested Visits Authorized [id number] Closed Auto-Generate d Referral 01/22/2024 01/21/2025 1 1 [facility] for visit Narrative* Diagnostic Procedure Only (Urgent) - Closed Specialty Diagnoses / Procedures Referred By Contac t Referred To Contact XR IMAGING Diagnoses Foot injury, left, initial encounter Procedures XR FOOT GENERAL 3V AP/LAT/OBL LEFT RADEX FOOT COMPLETE MINIMUM 3 VIEWS Larry Joseph SACK LIFTER.ELECTRIC STOVE MECHANIC [address] [place] [address] [place] [address] Referral ID Status Reason Start Date Expiration Date V isits Requested Visits Authorized [id number] Closed Auto-Generate d Referral 12/22/2023 01/20/2025 1 1 [facility] for visit Narrative* Diagnostic Procedure Only (Urgent) - Closed Specialty Diagnoses / Procedures Referred By Contac t Referred To Contact XR IMAGING Diagnoses Right hand pain Procedures XR HAND GENERAL 3V PA/LAT/OBL RIGHT RADEX HAND MINIMUM 3 VIEWS Dusty García SACK LIFTER.ELECTRIC STOVE MECHANIC [address] [place] [address] [place] [address] Referral ID Status Reason Start Date Expiration Date V isits Requested Visits Authorized [id number] Closed Auto-Generate d Referral 12/17/2023 01/15/2025 1 1 [facility] for visit Narrative* Diagnostic Procedure Only (Urgent) - Closed Specialty Diagnoses / Procedures Referred By Contac t Referred To Contact XR IMAGING Diagnoses Foot pain, right Procedures XR FOOT GENERAL 3V AP/LAT/OBL RIGHT RADEX FOOT COMPLETE MINIMUM 3 VIEWS Larry Joseph APRN.[place] [address] [place] [address] [place] [address] Referral ID Status Reason Start Date Expiration Date V isits Requested Visits Authorized [id number] Closed Auto-Generate d Referral 02/20/2022 03/22/2023 1 1 [facility] for visit Narrative* Diagnostic Procedure Only (Routine) - Closed Specialty Diagnoses / Procedures Referred By Contac t Referred To Contact XR IMAGING Diagnoses Injury of toe on right foot, initial encounter Procedures XR TOE AP/LAT/OBL RIGHT X-RAY TOE(S) Antonio Smalls MD [address] [place] [address] [place] [address] Referral ID Status Reason Start Date Expiration Date V isits Requested Visits Authorized [id number] Closed Auto-Generate d Referral 07/12/2021 08/11/2022 1 1 [facility] Summary Purpose Family History No Family History Records FoundNo Family History Records FoundNo Family History Records FoundNo Family History Records FoundNo Family History Records FoundNo Family History Records FoundNo Family History Records FoundNo Family History Records Found Advance Directives Advance Directive Response Recorded Date/ Time Living Will No January 26, 2022 2:02am Power of Treating And Pumping Supervisor No January 26 2:02am Advance Directive Response Recorded Date/ Time Living Will No April 11 12:51am Power of Treating And Pumping Supervisor No April 11, 2022 12:51am Advance Directive Response Recorded Date/ Time Living Will No September 29, 2024 8:22pm Do you have a Healthcare Power of Treating And Pumping Supervisor? No September 29, 2024 8:22pm Advance Directive Response Recorded Date/ Time Living Will No October 06, 2024 8:12pm Do you have a Healthcare Power of Treating And Pumping Supervisor? No October 06, 2024 8:12pm Living Will No September 29, 2024 8:22pm Do you have a Healthcare Power of Treating And Pumping Supervisor? No September 29, 2024 8:22pm Advance Directive Response Recorded Date/ Time Living Will No October 06, 2024 8:12pm Do you have a Healthcare Power of Treating And Pumping Supervisor? No October 06, 2024 8:12pm Living Will No September 29, 2024 8:22pm Do you have a Healthcare Power of Treating And Pumping Supervisor? No September 29, 2024 8:22pm Do you have a Healthcare Power of Treating And Pumping Supervisor? No October 25, 2024 12:41am Reason for Referral Specialty Diagnoses / Procedures Referred By Contac t Referred To Contact Diagnoses Attention deficit hyperactivity disorder (ADHD), combined type Antonio Smalls MD [address] [place] [address] Referral ID Status Reason Start Date Expiration Date Visits Re quested Visits Authorized [id number] Closed 1 1 Specialty Diagnoses / Procedures Referred By Contac t Referred To Contact Diagnoses Attention deficit hyperactivity disorder (ADHD), combined type Kishor Abdul MD [address] [place] [address] Referral ID Status Reason Start Date Expiration Date Visits Re quested Visits Authorized [id number] Closed 1 1 Specialty Diagnoses / Procedures Referred By Contac t Referred To Contact Diagnoses Attention deficit hyperactivity disorder (ADHD), combined type Hemalatha Dejesus MD [address] [place] [address] Referral ID Status Reason Start Date Expiration Date Visits Re quested Visits Authorized [id number] Closed 1 1 Specialty Diagnoses / Procedures Referred By Contac t Referred To Contact Diagnoses Attention deficit hyperactivity disorder (ADHD), combined type Estrellita Underwood PA-C [address] [place] [address] Referral ID Status Reason Start Date Expiration Date Visits Re quested Visits Authorized [id number] Closed 1 1 Specialty Diagnoses / Procedures Referred By Contac t Referred To Contact Podiatry Diagnoses Pain in right foot Procedures CONSULT TO PODIATRY OFFICE/OUTPATIENT [facility] 60-74 MINUTES Antonio Smalls MD [address] [id number] Referral ID Status Reason Start Date Expiration Date Visits Requested Visits Authorized [id number] Authorized PCP Requested Referral 03/12/2022 03/12/2023 1 1 Specialty Diagnoses / Procedures Referred By Contac t Referred To Contact Gastroenterology Diagnoses Abnormal laboratory test Malaise and fatigue Diarrhea, unspecified type Abdominal pain, unspecified abdominal location Procedures CONSULT TO GASTROENTEROLOGY OFFICE/OUTPATIENT [facility] 60-74 MINUTES Antonio Smalls MD [address] [place] [address] Referral ID Status Reason Start Date Expiration Date Visits Requested Visits Authorized [id number] Authorized PCP Requested Referral 04/18/2023 1 1 Specialty Diagnoses / Procedures Referred By Contac t Referred To Contact US IMAGING Diagnoses Abnormal laboratory test Malaise and fatigue Diarrhea, unspecified type Abdominal pain, unspecified abdominal location Procedures US ABD RT UPPER QUADRANT US ABDOMINAL REAL TIME W/IMAGE LIMITED Antonio Smalls MD [address] [id number] Us Imaging Referral ID Status Reason Start Date Expiration Date Visits Requested Visits Authorized [id number] Pending Review Auto-Generat ed Referral 05/18/2023 1 1 Specialty Diagnoses / Procedures Referred By Contac t Referred To Contact CT IMAGING Diagnoses Precordial pain Procedures CTA CORONARY W IVCON CTA HRT CORNRY ART/BYPASS GRFTS CONTRST 3D POST Santi Mcallister MD [address] [place] [address] Fax: Ct Imaging Referral ID Status Reason Start Date Expiration Date Visits Requested Visits Authorized [id number] Pending Review Auto-Generat ed Referral 10/30/2022 10/30/2023 1 1 Specialty Diagnoses / Procedures Referred By Contac t Referred [facility] Diagnoses Precordial pain Procedures ECHO ECHO TTHRC R-T 2D W/WOM-MODE COMPL SPEC&COLR D Santi Mcallister MD [address] [place] [address] [facility] [address] [place] [address] Referral ID Status Reason Start Date Expiration Date Visits Requested Visits Authorized [id number] Additional Clinical Info Needed Auto-Generat ed Referral 10/07/2022 09/30/2023 1 1 Specialty Diagnoses / Procedures Referred By Contac t Referred To Contact INTERNAL MEDICINE Diagnoses Attention deficit hyperactivity disorder (ADHD), combined type Procedures ESTABLISH WITH PRIMARY CARE NEW PATIENT OFFICE/OUTPATIENT NEW HIGH MDM 60-74 MINUTES Antonio Smalls MD [address] [place] [address] [facility] [address] [place] [address] Referral ID Status Reason Start Date Expiration Date V isits Requested Visits Authorized [id number] Closed PCP Requested Referral 10/09/2022 10/09/2023 1 1 Specialty Diagnoses / Procedures Referred By Tree t Referred To Contact Diagnoses Attention deficit hyperactivity disorder (ADHD), combined type Kate Silva MD [address] [place] [address] Referral ID Status Reason Start Date Expiration Date Visits Re quested Visits Authorized [id number] Closed 1 1 Referral ID Status Reason Start Date Expiration Date Visits Re quested Visits Authorized [id number] Closed 1 1 Referral ID Status Reason Start Date Expiration Date Visits Re quested Visits Authorized [id number] Closed 1 1 Referral ID Status Reason Start Date Expiration Date Visits Re quested Visits Authorized [id number] Closed 1 1 Referral ID Status Reason Start Date Expiration Date Visits Re quested Visits Authorized [id number] Closed 1 1 Referral ID Status Reason Start Date Expiration Date Visits Re quested Visits Authorized [id number] Closed 1 1 Referral ID Status Reason Start Date Expiration Date Visits Re quested Visits Authorized [id number] Closed 1 1 Referral ID Status Reason Start Date Expiration Date Visits Re quested Visits Authorized [id number] Closed 1 1 Referral ID Status Reason Start Date Expiration Date Visits Re quested Visits Authorized [id number] Closed 1 1 Referral ID Status Reason Start Date Expiration Date Visits Re quested Visits Authorized [id number] Closed 1 1 Referral ID Status Reason Start Date Expiration Date Visits Re quested Visits Authorized [id number] Closed 1 1 Referral ID Status Reason Start Date Expiration Date Visits Re quested Visits Authorized [id number] Closed 1 1 Referral ID Status Reason Start Date Expiration Date Visits Re quested Visits Authorized [id number] Closed 1 1 Referral ID Status Reason Start Date Expiration Date Visits Re quested Visits Authorized [id number] Closed 1 1 Specialty Diagnoses / Procedures Referred By Contac t Referred To Contact Diagnoses Attention deficit hyperactivity disorder (ADHD), combined type Sher Hollingsworth, [employer]CH[employer] [address] [place] [address] Referral ID Status Reason Start Date Expiration Date Visits Re quested Visits Authorized [id number] Closed 1 1 Referral ID Status Reason Start Date Expiration Date Visits Re quested Visits Authorized [id number] Closed 1 1 Specialty Diagnoses / Procedures Referred By Contac t Referred To Contact Orthopedics Diagnoses Right hand pain Procedures CONSULT PANEL TO ORTHOPAEDICS OFFICE/OUTPATIENT [facility] 60 MINUTES Dusty García, [employer] MECH[employer]IC [address] [place] [address] Referral ID Status Reason Start Date Expiration Date Visits Requested Visits Authorized [id number] Authorized PCP Requested Referral 12/17/2023 12/16/2024 1 1 Specialty Diagnoses / Procedures Referred By Contac t Referred To Contact XR IMAGING Diagnoses Right hand pain Procedures XR HAND GENERAL 3V PA/LAT/OBL RIGHT RADEX HAND MINIMUM 3 VIEWS Dusty García, [employer]OVE MECHANIC [address] [place] [address] [place] [address] Referral ID Status Reason Start Date Expiration Date V isits Requested Visits Authorized [id number] Closed Auto-Generate d Referral 12/17/2023 01/15/2025 1 1 Referral ID Status Reason Start Date Expiration Date Visits Re quested Visits Authorized [id number] Closed 1 1 Referral ID Status Reason Start Date Expiration Date Visits Re quested Visits Authorized [id number] Closed 1 1 Referral ID Status Reason Start Date Expiration Date Visits Re quested Visits Authorized [id number] Closed 1 1 Specialty Diagnoses / Procedures Referred By Contac t Referred To Contact Diagnoses Chronic infection Vaginal yeast infection Pat Ferrer, [employer] MECH[employer]IC [address] [place] [address] Referral ID Status Reason Start Date Expiration Date V isits Requested Visits Authorized [id number] Authorized 05/10/2024 08/07/2024 1 1 Chief Complaint and Reason for Visit Chief Complaint ANKLE INJURY Chief Complaint ANKLE INJURY Chest burning Chief Complaint Admit Date Weakness September 29, 2024 8:08 pm Chief Complaint Admit Date Weakness September 29, 2024 8:08 pm GEN ILLNESS October 06, 2024 7:45 pm Chief Complaint Admit Date Weakness September 29, 2024 8:08 pm GEN ILLNESS October 06, 2024 7:45 pm anxiety October 25, 2024 12: 36am Medications Administered Section Inactive Administered Medications - [...] ized section and content) DATE CREATED AUTHOR 12/23/2017 [facility] DATE CREATED AUTHOR AUTHOR'S ORGANIZ ATION 11/23/2018 [facility] DATE CREATED AUTHOR AUTHOR'S ORGANIZ ATION 08/15/2021 [facility] DATE CREATED AUTHOR AUTHOR'S ORGANIZ ATION 12/29/2022 [facility] DATE CREATED AUTHOR AUTHOR'S ORGANIZ ATION 11/26/2023 [facility] DATE CREATED AUTHOR AUTHOR'S ORGANIZ ATION 10/18/2024 [facility] DATE CREATED AUTHOR AUTHOR'S ORGANIZ ATION 11/03/2024 [facility] DATE CREATED AUTHOR AUTHOR'S ORGANIZ ATION 11/18/2024 [facility] Source Comments (unrecognize d section and content) In the event this informatio n is protected by the Federal Confidentiality of Alcohol and Drug Abuse Patient Records regulations: The Federal rules restrict any use of the information to criminally investigate or prosecute any alcohol or drug abuse patient.[facility] the event this information is protected by the Federal Confidentiality of Alcohol and Drug Abuse Patient Records regulations: The Federal rules restrict any use of the information to criminally investigate or prosecute any alcohol or drug abuse patient.[facility] CenterIn the event this information is protected by the Federal Confidentiality of Alcohol and Drug Abuse Patient Records regulations: The Federal rules restrict any use of the information to criminally investigate or prosecute any alcohol or drug abuse patient.[facility] CenterIn the event this information is protected by the Federal Confidentiality of Alcohol and Drug Abuse Patient Records regulations: The Federal rules restrict any use of the information to criminally investigate or prosecute any alcohol or drug abuse patient.[facility] CenterIn the event this information is protected by the Federal Confidentiality of Alcohol and Drug Abuse Patient Records regulations: The Federal rules restrict any use of the information to criminally investigate or prosecute any alcohol or drug abuse patient.[facility] CenterIn the event this information is protected by the Federal Confidentiality of Alcohol and Drug Abuse Patient Records regulations: The Federal rules restrict any use of the information to criminally investigate or prosecute any alcohol or drug abuse patient.[facility] CenterIn the event this information is protected by the Federal Confidentiality of Alcohol and Drug Abuse Patient Records regulations: The Federal rules restrict any use of the information to criminally investigate or prosecute any alcohol or drug abuse patient.[facility] CenterIn the event this information is protected by the Federal Confidentiality of Alcohol and Drug Abuse Patient Records regulations: The Federal rules restrict any use of the information to criminally investigate or prosecute any alcohol or drug abuse patient.[facility] CenterIn the event this information is protected by the Federal Confidentiality of Alcohol and Drug Abuse Patient Records regulations: The Federal rules restrict any use of the information to criminally investigate or prosecute any alcohol or drug abuse patient.[facility] CenterIn the event this information is protected by the Federal Confidentiality of Alcohol and Drug Abuse Patient Records regulations: The Federal rules restrict any use of the information to criminally investigate or prosecute any alcohol or drug abuse patient.[facility] CenterIn the event this information is protected by the Federal Confidentiality of Alcohol and Drug Abuse Patient Records regulations: The Federal rules restrict any use of the information to criminally investigate or prosecute any alcohol or drug abuse patient.[facility] CenterIn the event this information is protected by the Federal Confidentiality of Alcohol and Drug Abuse Patient Records regulations: The Federal rules restrict any use of the information to criminally investigate or prosecute any alcohol or drug abuse patient.[facility] CenterIn the event this information is protected by the Federal Confidentiality of Alcohol and Drug Abuse Patient Records regulations: The Federal rules restrict any use of the information to criminally investigate or prosecute any alcohol or drug abuse patient.[facility] CenterIn the event this information is protected by the Federal Confidentiality of Alcohol and Drug Abuse Patient Records regulations: The Federal rules restrict any use of the information to criminally investigate or prosecute any alcohol or drug abuse patient.[facility] CenterIn the event this information is protected by the Federal Confidentiality of Alcohol and Drug Abuse Patient Records regulations: The Federal rules restrict any use of the information to criminally investigate or prosecute any alcohol or drug abuse patient.[facility] CenterIn the event this information is protected by the Federal Confidentiality of Alcohol and Drug Abuse Patient Records regulations: The Federal rules restrict any use of the information to criminally investigate or prosecute any alcohol or drug abuse patient.[facility] CenterIn the event this information is protected by the Federal Confidentiality of Alcohol and Drug Abuse Patient Records regulations: The Federal rules restrict any use of the information to criminally investigate or prosecute any alcohol or drug abuse patient.[facility] CenterIn the event this information is protected by the Federal Confidentiality of Alcohol and Drug Abuse Patient Records regulations: The Federal rules restrict any use of the information to criminally investigate or prosecute any alcohol or drug abuse patient.[facility] CenterIn the event this information is protected by the Federal Confidentiality of Alcohol and Drug Abuse Patient Records regulations: The Federal rules restrict any use of the information to criminally investigate or prosecute any alcohol or drug abuse patient.[facility] CenterIn the event this information is protected by the Federal Confidentiality of Alcohol and Drug Abuse Patient Records regulations: The Federal rules restrict any use of the information to criminally investigate or prosecute any alcohol or drug abuse patient.[facility] CenterIn the event this information is protected by the Federal Confidentiality of Alcohol and Drug Abuse Patient Records regulations: The Federal rules restrict any use of the information to criminally investigate or prosecute any alcohol or drug abuse patient.[facility] CenterIn the event this information is protected by the Federal Confidentiality of Alcohol and Drug Abuse Patient Records regulations: The Federal rules restrict any use of the information to criminally investigate or prosecute any alcohol or drug abuse patient.[facility] CenterIn the event this information is protected by the Federal Confidentiality of Alcohol and Drug Abuse Patient Records regulations: The Federal rules restrict any use of the information to criminally investigate or prosecute any alcohol or drug abuse patient.[facility] CenterIn the event this information is protected by the Federal Confidentiality of Alcohol and Drug Abuse Patient Records regulations: The Federal rules restrict any use of the information to criminally investigate or prosecute any alcohol or drug abuse patient.[facility] CenterIn the event this information is protected by the Federal Confidentiality of Alcohol and Drug Abuse Patient Records regulations: The Federal rules restrict any use of the information to criminally investigate or prosecute any alcohol or drug abuse patient.[facility] CenterIn the event this information is protected by the Federal Confidentiality of Alcohol and Drug Abuse Patient Records regulations: The Federal rules restrict any use of the information to criminally investigate or prosecute any alcohol or drug abuse patient.[facility] CenterIn the event this information is protected by the Federal Confidentiality of Alcohol and Drug Abuse Patient Records regulations: The Federal rules restrict any use of the information to criminally investigate or prosecute any alcohol or drug abuse patient.[facility] CenterIn the event this information is protected by the Federal Confidentiality of Alcohol and Drug Abuse Patient Records regulations: The Federal rules restrict any use of the information to criminally investigate or prosecute any alcohol or drug abuse patient.[facility] CenterIn the event this information is protected by the Federal Confidentiality of Alcohol and Drug Abuse Patient Records regulations: The Federal rules restrict any use of the information to criminally investigate or prosecute any alcohol or drug abuse patient.[facility] CenterIn the event this information is protected by the Federal Confidentiality of Alcohol and Drug Abuse Patient Records regulations: The Federal rules restrict any use of the information to criminally investigate or prosecute any alcohol or drug abuse patient.[facility] CenterIn the event this information is protected by the Federal Confidentiality of Alcohol and Drug Abuse Patient Records regulations: The Federal rules restrict any use of the information to criminally investigate or prosecute any alcohol or drug abuse patient.[facility] CenterIn the event this information is protected by the Federal Confidentiality of Alcohol and Drug Abuse Patient Records regulations: The Federal rules restrict any use of the information to criminally investigate or prosecute any alcohol or drug abuse patient.[facility] CenterIn the event this information is protected by the Federal Confidentiality of Alcohol and Drug Abuse Patient Records regulations: The Federal rules restrict any use of the information to criminally investigate or prosecute any alcohol or drug abuse patient.[facility] CenterIn the event this information is protected by the Federal Confidentiality of Alcohol and Drug Abuse Patient Records regulations: The Federal rules restrict any use of the information to criminally investigate or prosecute any alcohol or drug abuse patient.[facility] CenterIn the event this information is protected by the Federal Confidentiality of Alcohol and Drug Abuse Patient Records regulations: The Federal rules restrict any use of the information to criminally investigate or prosecute any alcohol or drug abuse patient.[facility] CenterIn the event this information is protected by the Federal Confidentiality of Alcohol and Drug Abuse Patient Records regulations: The Federal rules restrict any use of the information to criminally investigate or prosecute any alcohol or drug abuse patient.[facility] CenterIn the event this information is protected by the Federal Confidentiality of Alcohol and Drug Abuse Patient Records regulations: The Federal rules restrict any use of the information to criminally investigate or prosecute any alcohol or drug abuse patient.[facility] CenterIn the event this information is protected by the Federal Confidentiality of Alcohol and Drug Abuse Patient Records regulations: The Federal rules restrict any use of the information to criminally investigate or prosecute any alcohol or drug abuse patient.[facility] CenterIn the event this information is protected by the Federal Confidentiality of Alcohol and Drug Abuse Patient Records regulations: The Federal rules restrict any use of the information to criminally investigate or prosecute any alcohol or drug abuse patient.[facility] CenterIn the event this information is protected by the Federal Confidentiality of Alcohol and Drug Abuse Patient Records regulations: The Federal rules restrict any use of the information to criminally investigate or prosecute any alcohol or drug abuse patient.[facility] CenterIn the event this information is protected by the Federal Confidentiality of Alcohol and Drug Abuse Patient Records regulations: The Federal rules restrict any use of the information to criminally investigate or prosecute any alcohol or drug abuse patient.[facility] CenterIn the event this information is protected by the Federal Confidentiality of Alcohol and Drug Abuse Patient Records regulations: The Federal rules restrict any use of the information to criminally investigate or prosecute any alcohol or drug abuse patient.[facility] CenterIn the event this information is protected by the Federal Confidentiality of Alcohol and Drug Abuse Patient Records regulations: The Federal rules restrict any use of the information to criminally investigate or prosecute any alcohol or drug abuse patient.[facility] CenterIn the event this information is protected by the Federal Confidentiality of Alcohol and Drug Abuse Patient Records regulations: The Federal rules restrict any use of the information to criminally investigate or prosecute any alcohol or drug abuse patient.[facility] CenterIn the event this information is protected by the Federal Confidentiality of Alcohol and Drug Abuse Patient Records regulations: The Federal rules restrict any use of the information to criminally investigate or prosecute any alcohol or drug abuse patient.[facility] CenterIn the event this information is protected by the Federal Confidentiality of Alcohol and Drug Abuse Patient Records regulations: The Federal rules restrict any use of the information to criminally investigate or prosecute any alcohol or drug abuse patient.[facility] CenterIn the event this information is protected by the Federal Confidentiality of Alcohol and Drug Abuse Patient Records regulations: The Federal rules restrict any use of the information to criminally investigate or prosecute any alcohol or drug abuse patient.[facility] CenterIn the event this information is protected by the Federal Confidentiality of Alcohol and Drug Abuse Patient Records regulations: The Federal rules restrict any use of the information to criminally investigate or prosecute any alcohol or drug abuse patient.[facility] CenterIn the event this information is protected by the Federal Confidentiality of Alcohol and Drug Abuse Patient Records regulations: The Federal rules restrict any use of the information to criminally investigate or prosecute any alcohol or drug abuse patient.[facility] CenterIn the event this information is protected by the Federal Confidentiality of Alcohol and Drug Abuse Patient Records regulations: The Federal rules restrict any use of the information to criminally investigate or prosecute any alcohol or drug abuse patient.[facility] CenterIn the event this information is protected by the Federal Confidentiality of Alcohol and Drug Abuse Patient Records regulations: The Federal rules restrict any use of the information to criminally investigate or prosecute any alcohol or drug abuse patient.[facility] CenterIn the event this information is protected by the Federal Confidentiality of Alcohol and Drug Abuse Patient Records regulations: The Federal rules restrict any use of the information to criminally investigate or prosecute any alcohol or drug abuse patient.[facility] CenterIn the event this information is protected by the Federal Confidentiality of Alcohol and Drug Abuse Patient Records regulations: The Federal rules restrict any use of the information to criminally investigate or prosecute any alcohol or drug abuse patient.[facility] CenterIn the event this information is protected by the Federal Confidentiality of Alcohol and Drug Abuse Patient Records regulations: The Federal rules restrict any use of the information to criminally investigate or prosecute any alcohol or drug abuse patient.[facility] CenterIn the event this information is protected by the Federal Confidentiality of Alcohol and Drug Abuse Patient Records regulations: The Federal rules restrict any use of the information to criminally investigate or prosecute any alcohol or drug abuse patient.[facility] CenterIn the event this information is protected by the Federal Confidentiality of Alcohol and Drug Abuse Patient Records regulations: The Federal rules restrict any use of the information to criminally investigate or prosecute any alcohol or drug abuse patient.[facility] CenterIn the event this information is protected by the Federal Confidentiality of Alcohol and Drug Abuse Patient Records regulations: The Federal rules restrict any use of the information to criminally investigate or prosecute any alcohol or drug abuse patient.[facility] CenterIn the event this information is protected by the Federal Confidentiality of Alcohol and Drug Abuse Patient Records regulations: The Federal rules restrict any use of the information to criminally investigate or prosecute any alcohol or drug abuse patient.[facility] CenterIn the event this information is protected by the Federal Confidentiality of Alcohol and Drug Abuse Patient Records regulations: The Federal rules restrict any use of the information to criminally investigate or prosecute any alcohol or drug abuse patient.[facility] CenterIn the event this information is protected by the Federal Confidentiality of Alcohol and Drug Abuse Patient Records regulations: The Federal rules restrict any use of the information to criminally investigate or prosecute any alcohol or drug abuse patient.[facility] CenterIn the event this information is protected by the Federal Confidentiality of Alcohol and Drug Abuse Patient Records regulations: The Federal rules restrict any use of the information to criminally investigate or prosecute any alcohol or drug abuse patient.[facility] CenterIn the event this information is protected by the Federal Confidentiality of Alcohol and Drug Abuse Patient Records regulations: The Federal rules restrict any use of the information to criminally investigate or prosecute any alcohol or drug abuse patient.[facility] CenterIn the event this information is protected by the Federal Confidentiality of Alcohol and Drug Abuse Patient Records regulations: The Federal rules restrict any use of the information to criminally investigate or prosecute any alcohol or drug abuse patient.[facility] CenterIn the event this information is protected by the Federal Confidentiality of Alcohol and Drug Abuse Patient Records regulations: The Federal rules restrict any use of the information to criminally investigate or prosecute any alcohol or drug abuse patient.[facility] CenterIn the event this information is protected by the Federal Confidentiality of Alcohol and Drug Abuse Patient Records regulations: The Federal rules restrict any use of the information to criminally investigate or prosecute any alcohol or drug abuse patient.[facility] CenterIn the event this information is protected by the Federal Confidentiality of Alcohol and Drug Abuse Patient Records regulations: The Federal rules restrict any use of the information to criminally investigate or prosecute any alcohol or drug abuse patient.[facility] CenterIn the event this information is protected by the Federal Confidentiality of Alcohol and Drug Abuse Patient Records regulations: The Federal rules restrict any use of the information to criminally investigate or prosecute any alcohol or drug abuse patient.[facility] CenterIn the event this information is protected by the Federal Confidentiality of Alcohol and Drug Abuse Patient Records regulations: The Federal rules restrict any use of the information to criminally investigate or prosecute any alcohol or drug abuse patient.[facility] CenterIn the event this information is protected by the Federal Confidentiality of Alcohol and Drug Abuse Patient Records regulations: The Federal rules restrict any use of the information to criminally investigate or prosecute any alcohol or drug abuse patient.[facility] CenterIn the event this information is protected by the Federal Confidentiality of Alcohol and Drug Abuse Patient Records regulations: The Federal rules restrict any use of the information to criminally investigate or prosecute any alcohol or drug abuse patient.[facility]In the event this information is protected by the Federal Confidentiality of Alcohol and Drug Abuse Patient Records regulations: The Federal rules restrict any use of the information to criminally investigate or prosecute any alcohol or drug abuse patient.[facility] CenterIn the event this information is protected by the Federal Confidentiality of Alcohol and Drug Abuse Patient Records regulations: The Federal rules restrict any use of the information to criminally investigate or prosecute any alcohol or drug abuse patient.[facility] CenterIn the event this information is protected by the Federal Confidentiality of Alcohol and Drug Abuse Patient Records regulations: The Federal rules restrict any use of the information to criminally investigate or prosecute any alcohol or drug abuse patient.[facility] CenterIn the event this information is protected by the Federal Confidentiality of Alcohol and Drug Abuse Patient Records regulations: The Federal rules restrict any use of the information to criminally investigate or prosecute any alcohol or drug abuse patient.[facility] CenterIn the event this information is protected by the Federal Confidentiality of Alcohol and Drug Abuse Patient Records regulations: The Federal rules restrict any use of the information to criminally investigate or prosecute any alcohol or drug abuse patient.[facility] CenterIn the event this information is protected by the Federal Confidentiality of Alcohol and Drug Abuse Patient Records regulations: The Federal rules restrict any use of the information to criminally investigate or prosecute any alcohol or drug abuse patient.[facility] CenterIn the event this information is protected by the Federal Confidentiality of Alcohol and Drug Abuse Patient Records regulations: The Federal rules restrict any use of the information to criminally investigate or prosecute any alcohol or drug abuse patient.[facility] CenterIn the event this information is protected by the Federal Confidentiality of Alcohol and Drug Abuse Patient Records regulations: The Federal rules restrict any use of the information to criminally investigate or prosecute any alcohol or drug abuse patient.[facility] CenterIn the event this information is protected by the Federal Confidentiality of Alcohol and Drug Abuse Patient Records regulations: The Federal rules restrict any use of the information to criminally investigate or prosecute any alcohol or drug abuse patient.[facility] CenterIn the event this information is protected by the Federal Confidentiality of Alcohol and Drug Abuse Patient Records regulations: The Federal rules restrict any use of the information to criminally investigate or prosecute any alcohol or drug abuse patient.[facility] CenterIn the event this information is protected by the Federal Confidentiality of Alcohol and Drug Abuse Patient Records regulations: The Federal rules restrict any use of the information to criminally investigate or prosecute any alcohol or drug abuse patient.[facility] CenterIn the event this information is protected by the Federal Confidentiality of Alcohol and Drug Abuse Patient Records regulations: The Federal rules restrict any use of the information to criminally investigate or prosecute any alcohol or drug abuse patient.[facility] CenterIn the event this information is protected by the Federal Confidentiality of Alcohol and Drug Abuse Patient Records regulations: The Federal rules restrict any use of the information to criminally investigate or prosecute any alcohol or drug abuse patient.[facility] CenterIn the event this information is protected by the Federal Confidentiality of Alcohol and Drug Abuse Patient Records regulations: The Federal rules restrict any use of the information to criminally investigate or prosecute any alcohol or drug abuse patient.[facility] CenterIn the event this information is protected by the Federal Confidentiality of Alcohol and Drug Abuse Patient Records regulations: The Federal rules restrict any use of the information to criminally investigate or prosecute any alcohol or drug abuse patient.[facility] CenterIn the event this information is protected by the Federal Confidentiality of Alcohol and Drug Abuse Patient Records regulations: The Federal rules restrict any use of the information to criminally investigate or prosecute any alcohol or drug abuse patient.[facility] CenterIn the event this information is protected by the Federal Confidentiality of Alcohol and Drug Abuse Patient Records regulations: The Federal rules restrict any use of the information to criminally investigate or prosecute any alcohol or drug abuse patient.[facility] CenterIn the event this information is protected by the Federal Confidentiality of Alcohol and Drug Abuse Patient Records regulations: The Federal rules restrict any use of the information to criminally investigate or prosecute any alcohol or drug abuse patient.[facility] CenterIn the event this information is protected by the Federal Confidentiality of Alcohol and Drug Abuse Patient Records regulations: The Federal rules restrict any use of the information to criminally investigate or prosecute any alcohol or drug abuse patient.[facility] CenterIn the event this information is protected by the Federal Confidentiality of Alcohol and Drug Abuse Patient Records regulations: The Federal rules restrict any use of the information to criminally investigate or prosecute any alcohol or drug abuse patient.[facility] CenterIn the event this information is protected by the Federal Confidentiality of Alcohol and Drug Abuse Patient Records regulations: The Federal rules restrict any use of the information to criminally investigate or prosecute any alcohol or drug abuse patient.[facility]In the event this information is protected by the Federal Confidentiality of Alcohol and Drug Abuse Patient Records regulations: The Federal rules restrict any use of the information to criminally investigate or prosecute any alcohol or drug abuse patient.[facility] CenterIn the event this information is protected by the Federal Confidentiality of Alcohol and Drug Abuse Patient Records regulations: The Federal rules restrict any use of the information to criminally investigate or prosecute any alcohol or drug abuse patient.[facility] CenterIn the event this information is protected by the Federal Confidentiality of Alcohol and Drug Abuse Patient Records regulations: The Federal rules restrict any use of the information to criminally investigate or prosecute any alcohol or drug abuse patient.[facility]In the event this information is protected by the Federal Confidentiality of Alcohol and Drug Abuse Patient Records regulations: The Federal rules restrict any use of the information to criminally investigate or prosecute any alcohol or drug abuse patient.[facility] CenterIn the event this information is protected by the Federal Confidentiality of Alcohol and Drug Abuse Patient Records regulations: The Federal rules restrict any use of the information to criminally investigate or prosecute any alcohol or drug abuse patient.[facility] CenterIn the event this information is protected by the Federal Confidentiality of Alcohol and Drug Abuse Patient Records regulations: The Federal rules restrict any use of the information to criminally investigate or prosecute any alcohol or drug abuse patient.[facility]In the event this information is protected by the Federal Confidentiality of Alcohol and Drug Abuse Patient Records regulations: The Federal rules restrict any use of the information to criminally investigate or prosecute any alcohol or drug abuse patient.[facility]In the event this information is protected by the Federal Confidentiality of Alcohol and Drug Abuse Patient Records regulations: The Federal rules restrict any use of the information to criminally investigate or prosecute any alcohol or drug abuse patient.[facility]In the event this information is protected by the Federal Confidentiality of Alcohol and Drug Abuse Patient Records regulations: The Federal rules restrict any use of the information to criminally investigate or prosecute any alcohol or drug abuse patient.[facility]In the event this information is protected by the Federal Confidentiality of Alcohol and Drug Abuse Patient Records regulations: The Federal rules restrict any use of the information to criminally investigate or prosecute any alcohol or drug abuse patient.[facility]In the event this information is protected by the Federal Confidentiality of Alcohol and Drug Abuse Patient Records regulations: The Federal rules restrict any use of the information to criminally investigate or prosecute any alcohol or drug abuse patient.[facility]In the event this information is protected by the Federal Confidentiality of Alcohol and Drug Abuse Patient Records regulations: The Federal rules restrict any use of the information to criminally investigate or prosecute any alcohol or drug abuse patient.[facility]In the event this information is protected by the Federal Confidentiality of Alcohol and Drug Abuse Patient Records regulations: The Federal rules restrict any use of the information to criminally investigate or prosecute any alcohol or drug abuse patient.[facility]In the event this information is protected by the Federal Confidentiality of Alcohol and Drug Abuse Patient Records regulations: The Federal rules restrict any use of the information to criminally investigate or prosecute any alcohol or drug abuse patient.[facility]In the event this information is protected by the Federal Confidentiality of Alcohol and Drug Abuse Patient Records regulations: The Federal rules restrict any use of the information to criminally investigate or prosecute any alcohol or drug abuse patient.[facility]In the event this information is protected by the Federal Confidentiality of Alcohol and Drug Abuse Patient Records regulations: The Federal rules restrict any use of the information to criminally investigate or prosecute any alcohol or drug abuse patient.[facility]In the event this information is protected by the Federal Confidentiality of Alcohol and Drug Abuse Patient Records regulations: The Federal rules restrict any use of the information to criminally investigate or prosecute any alcohol or drug abuse patient.[facility]In the event this information is protected by the Federal Confidentiality of Alcohol and Drug Abuse Patient Records regulations: The Federal rules restrict any use of the information to criminally investigate or prosecute any alcohol or drug abuse patient.[facility]In the event this information is protected by the Federal Confidentiality of Alcohol and Drug Abuse Patient Records regulations: The Federal rules restrict any use of the information to criminally investigate or prosecute any alcohol or drug abuse patient.[facility]In the event this information is protected by the Federal Confidentiality of Alcohol and Drug Abuse Patient Records regulations: The Federal rules restrict any use of the information to criminally investigate or prosecute any alcohol or drug abuse patient.[facility]In the event this information is protected by the Federal Confidentiality of Alcohol and Drug Abuse Patient Records regulations: The Federal rules restrict any use of the information to criminally investigate or prosecute any alcohol or drug abuse patient.[facility]In the event this information is protected by the Federal Confidentiality of Alcohol and Drug Abuse Patient Records regulations: The Federal rules restrict any use of the information to criminally investigate or prosecute any alcohol or drug abuse patient.[facility]In the event this information is protected by the Federal Confidentiality of Alcohol and Drug Abuse Patient Records regulations: The Federal rules restrict any use of the information to criminally investigate or prosecute any alcohol or drug abuse patient.[facility]In the event this information is protected by the Federal Confidentiality of Alcohol and Drug Abuse Patient Records regulations: The Federal rules restrict any use of the information to criminally investigate or prosecute any alcohol or drug abuse patient.[facility]In the event this information is protected by the Federal Confidentiality of Alcohol and Drug Abuse Patient Records regulations: The Federal rules restrict any use of the information to criminally investigate or prosecute any alcohol or drug abuse patient.[facility]In the event this information is protected by the Federal Confidentiality of Alcohol and Drug Abuse Patient Records regulations: The Federal rules restrict any use of the information to criminally investigate or prosecute any alcohol or drug abuse patient.[facility]In the event this information is protected by the Federal Confidentiality of Alcohol and Drug Abuse Patient Records regulations: The Federal rules restrict any use of the information to criminally investigate or prosecute any alcohol or drug abuse patient.[facility]In the event this information is protected by the Federal Confidentiality of Alcohol and Drug Abuse Patient Records regulations: The Federal rules restrict any use of the information to criminally investigate or prosecute any alcohol or drug abuse patient.[facility]In the event this information is protected by the Federal Confidentiality of Alcohol and Drug Abuse Patient Records regulations: The Federal rules restrict any use of the information to criminally investigate or prosecute any alcohol or drug abuse patient.[facility]In the event this information is protected by the Federal Confidentiality of Alcohol and Drug Abuse Patient Records regulations: The Federal rules restrict any use of the information to criminally investigate or prosecute any alcohol or drug abuse patient.[facility]In the event this information is protected by the Federal Confidentiality of Alcohol and Drug Abuse Patient Records regulations: The Federal rules restrict any use of the information to criminally investigate or prosecute any alcohol or drug abuse patient.[facility]In the event this information is protected by the Federal Confidentiality of Alcohol and Drug Abuse Patient Records regulations: The Federal rules restrict any use of the information to criminally investigate or prosecute any alcohol or drug abuse patient.[facility]In the event this information is protected by the Federal Confidentiality of Alcohol and Drug Abuse Patient Records regulations: The Federal rules restrict any use of the information to criminally investigate or prosecute any alcohol or drug abuse patient.[facility]In the event this information is protected by the Federal Confidentiality of Alcohol and Drug Abuse Patient Records regulations: The Federal rules restrict any use of the information to criminally investigate or prosecute any alcohol or drug abuse patient.[facility]In the event this information is protected by the Federal Confidentiality of Alcohol and Drug Abuse Patient Records regulations: The Federal rules restrict any use of the information to criminally investigate or prosecute any alcohol or drug abuse patient.[facility]In the event this information is protected by the Federal Confidentiality of Alcohol and Drug Abuse Patient Records regulations: The Federal rules restrict any use of the information to criminally investigate or prosecute any alcohol or drug abuse patient.[facility]In the event this information is protected by the Federal Confidentiality of Alcohol and Drug Abuse Patient Records regulations: The Federal rules restrict any use of the information to criminally investigate or prosecute any alcohol or drug abuse patient.[facility]In the event this information is protected by the Federal Confidentiality of Alcohol and Drug Abuse Patient Records regulations: The Federal rules restrict any use of the information to criminally investigate or prosecute any alcohol or drug abuse patient.[facility]In the event this information is protected by the Federal Confidentiality of Alcohol and Drug Abuse Patient Records regulations: The Federal rules restrict any use of the information to criminally investigate or prosecute any alcohol or drug abuse patient.[facility]In the event this information is protected by the Federal Confidentiality of Alcohol and Drug Abuse Patient Records regulations: The Federal rules restrict any use of the information to criminally investigate or prosecute any alcohol or drug abuse patient.[facility]In the event this information is protected by the Federal Confidentiality of Alcohol and Drug Abuse Patient Records regulations: The Federal rules restrict any use of the information to criminally investigate or prosecute any alcohol or drug abuse patient.[facility]In the event this information is protected by the Federal Confidentiality of Alcohol and Drug Abuse Patient Records regulations: The Federal rules restrict any use of the information to criminally investigate or prosecute any alcohol or drug abuse patient.[facility]In the event this information is protected by the Federal Confidentiality of Alcohol and Drug Abuse Patient Records regulations: The Federal rules restrict any use of the information to criminally investigate or prosecute any alcohol or drug abuse patient.[facility]In the event this information is protected by the Federal Confidentiality of Alcohol and Drug Abuse Patient Records regulations: The Federal rules restrict any use of the information to criminally investigate or prosecute any alcohol or drug abuse patient.[facility]In the event this information is protected by the Federal Confidentiality of Alcohol and Drug Abuse Patient Records regulations: The Federal rules restrict any use of the information to criminally investigate or prosecute any alcohol or drug abuse patient.[facility]In the event this information is protected by the Federal Confidentiality of Alcohol and Drug Abuse Patient Records regulations: The Federal rules restrict any use of the information to criminally investigate or prosecute any alcohol or drug abuse patient.[facility]In the event this information is protected by the Federal Confidentiality of Alcohol and Drug Abuse Patient Records regulations: The Federal rules restrict any use of the information to criminally investigate or prosecute any alcohol or drug abuse patient.[facility]In the event this information is protected by the Federal Confidentiality of Alcohol and Drug Abuse Patient Records regulations: The Federal rules restrict any use of the information to criminally investigate or prosecute any alcohol or drug abuse patient.[facility]In the event this information is protected by the Federal Confidentiality of Alcohol and Drug Abuse Patient Records regulations: The Federal rules restrict any use of the information to criminally investigate or prosecute any alcohol or drug abuse patient.[facility]In the event this information is protected by the Federal Confidentiality of Alcohol and Drug Abuse Patient Records regulations: The Federal rules restrict any use of the information to criminally investigate or prosecute any alcohol or drug abuse patient.[facility]In the event this information is protected by the Federal Confidentiality of Alcohol and Drug Abuse Patient Records regulations: The Federal rules restrict any use of the information to criminally investigate or prosecute any alcohol or drug abuse patient.[facility]In the event this information is protected by the Federal Confidentiality of Alcohol and Drug Abuse Patient Records regulations: The Federal rules restrict any use of the information to criminally investigate or prosecute any alcohol or drug abuse patient.[facility]In the event this information is protected by the Federal Confidentiality of Alcohol and Drug Abuse Patient Records regulations: The Federal rules restrict any use of the information to criminally investigate or prosecute any alcohol or drug abuse patient.[facility]In the event this information is protected by the Federal Confidentiality of Alcohol and Drug Abuse Patient Records regulations: The Federal rules restrict any use of the information to criminally investigate or prosecute any alcohol or drug abuse patient.[facility]In the event this information is protected by the Federal Confidentiality of Alcohol and Drug Abuse Patient Records regulations: The Federal rules restrict any use of the information to criminally investigate or prosecute any alcohol or drug abuse patient.[facility]In the event this information is protected by the Federal Confidentiality of Alcohol and Drug Abuse Patient Records regulations: The Federal rules restrict any use of the information to criminally investigate or prosecute any alcohol or drug abuse patient.[facility]In the event this information is protected by the Federal Confidentiality of Alcohol and Drug Abuse Patient Records regulations: The Federal rules restrict any use of the information to criminally investigate or prosecute any alcohol or drug abuse patient.[facility]In the event this information is protected by the Federal Confidentiality of Alcohol and Drug Abuse Patient Records regulations: The Federal rules restrict any use of the information to criminally investigate or prosecute any alcohol or drug abuse patient.[facility]In the event this information is protected by the Federal Confidentiality of Alcohol and Drug Abuse Patient Records regulations: The Federal rules restrict any use of the information to criminally investigate or prosecute any alcohol or drug abuse patient.[facility]In the event this information is protected by the Federal Confidentiality of Alcohol and Drug Abuse Patient Records regulations: The Federal rules restrict any use of the information to criminally investigate or prosecute any alcohol or drug abuse patient.[facility]In the event this information is protected by the Federal Confidentiality of Alcohol and Drug Abuse Patient Records regulations: The Federal rules restrict any use of the information to criminally investigate or prosecute any alcohol or drug abuse patient.[facility]In the event this information is protected by the Federal Confidentiality of Alcohol and Drug Abuse Patient Records regulations: The Federal rules restrict any use of the information to criminally investigate or prosecute any alcohol or drug abuse patient.[facility]In the event this information is protected by the Federal Confidentiality of Alcohol and Drug Abuse Patient Records regulations: The Federal rules restrict any use of the information to criminally investigate or prosecute any alcohol or drug abuse patient.[facility]In the event this information is protected by the Federal Confidentiality of Alcohol and Drug Abuse Patient Records regulations: The Federal rules restrict any use of the information to criminally investigate or prosecute any alcohol or drug abuse patient.[facility] CenterIn the event this information is protected by the Federal Confidentiality of Alcohol and Drug Abuse Patient Records regulations: The Federal rules restrict any use of the information to criminally investigate or prosecute any alcohol or drug abuse patient.[facility] CenterIn the event this information is protected by the Federal Confidentiality of Alcohol and Drug Abuse Patient Records regulations: The Federal rules restrict any use of the information to criminally investigate or prosecute any alcohol or drug abuse patient.[facility] CenterIn the event this information is protected by the Federal Confidentiality of Alcohol and Drug Abuse Patient Records regulations: The Federal rules restrict any use of the information to criminally investigate or prosecute any alcohol or drug abuse patient.[facility] CenterIn the event this information is protected by the Federal Confidentiality of Alcohol and Drug Abuse Patient Records regulations: The Federal rules restrict any use of the information to criminally investigate or prosecute any alcohol or drug abuse patient.[facility] CenterIn the event this information is protected by the Federal Confidentiality of Alcohol and Drug Abuse Patient Records regulations: The Federal rules restrict any use of the information to criminally investigate or prosecute any alcohol or drug abuse patient.[facility] CenterIn the event this information is protected by the Federal Confidentiality of Alcohol and Drug Abuse Patient Records regulations: The Federal rules restrict any use of the information to criminally investigate or prosecute any alcohol or drug abuse patient.[facility] CenterIn the event this information is protected by the Federal Confidentiality of Alcohol and Drug Abuse Patient Records regulations: The Federal rules restrict any use of the information to criminally investigate or prosecute any alcohol or drug abuse patient.[facility] CenterIn the event this information is protected by the Federal Confidentiality of Alcohol and Drug Abuse Patient Records regulations: The Federal rules restrict any use of the information to criminally investigate or prosecute any alcohol or drug abuse patient.[facility] CenterIn the event this information is protected by the Federal Confidentiality of Alcohol and Drug Abuse Patient Records regulations: The Federal rules restrict any use of the information to criminally investigate or prosecute any alcohol or drug abuse patient.[facility] CenterIn the event this information is protected by the Federal Confidentiality of Alcohol and Drug Abuse Patient Records regulations: The Federal rules restrict any use of the information to criminally investigate or prosecute any alcohol or drug abuse patient.[facility] CenterIn the event this information is protected by the Federal Confidentiality of Alcohol and Drug Abuse Patient Records regulations: The Federal rules restrict any use of the information to criminally investigate or prosecute any alcohol or drug abuse patient.[facility] CenterIn the event this information is protected by the Federal Confidentiality of Alcohol and Drug Abuse Patient Records regulations: The Federal rules restrict any use of the information to criminally investigate or prosecute any alcohol or drug abuse patient.[facility] CenterIn the event this information is protected by the Federal Confidentiality of Alcohol and Drug Abuse Patient Records regulations: The Federal rules restrict any use of the information to criminally investigate or prosecute any alcohol or drug abuse patient.[facility] CenterIn the event this information is protected by the Federal Confidentiality of Alcohol and Drug Abuse Patient Records regulations: The Federal rules restrict any use of the information to criminally investigate or prosecute any alcohol or drug abuse patient.[facility] CenterIn the event this information is protected by the Federal Confidentiality of Alcohol and Drug Abuse Patient Records regulations: The Federal rules restrict any use of the information to criminally investigate or prosecute any alcohol or drug abuse patient.[facility] CenterIn the event this information is protected by the Federal Confidentiality of Alcohol and Drug Abuse Patient Records regulations: The Federal rules restrict any use of the information to criminally investigate or prosecute any alcohol or drug abuse patient.[facility] CenterIn the event this information is protected by the Federal Confidentiality of Alcohol and Drug Abuse Patient Records regulations: The Federal rules restrict any use of the information to criminally investigate or prosecute any alcohol or drug abuse patient.[facility] CenterIn the event this information is protected by the Federal Confidentiality of Alcohol and Drug Abuse Patient Records regulations: The Federal rules restrict any use of the information to criminally investigate or prosecute any alcohol or drug abuse patient.[facility] CenterIn the event this information is protected by the Federal Confidentiality of Alcohol and Drug Abuse Patient Records regulations: The Federal rules restrict any use of the information to criminally investigate or prosecute any alcohol or drug abuse patient.[facility] CenterIn the event this information is protected by the Federal Confidentiality of Alcohol and Drug Abuse Patient Records regulations: The Federal rules restrict any use of the information to criminally investigate or prosecute any alcohol or drug abuse patient.[facility] CenterIn the event this information is protected by the Federal Confidentiality of Alcohol and Drug Abuse Patient Records regulations: The Federal rules restrict any use of the information to criminally investigate or prosecute any alcohol or drug abuse patient.[facility] CenterIn the event this information is protected by the Federal Confidentiality of Alcohol and Drug Abuse Patient Records regulations: The Federal rules restrict any use of the information to criminally investigate or prosecute any alcohol or drug abuse patient.[facility] CenterIn the event this information is protected by the Federal Confidentiality of Alcohol and Drug Abuse Patient Records regulations: The Federal rules restrict any use of the information to criminally investigate or prosecute any alcohol or drug abuse patient.[facility] CenterIn the event this information is protected by the Federal Confidentiality of Alcohol and Drug Abuse Patient Records regulations: The Federal rules restrict any use of the information to criminally investigate or prosecute any alcohol or drug abuse patient.[facility] CenterIn the event this information is protected by the Federal Confidentiality of Alcohol and Drug Abuse Patient Records regulations: The Federal rules restrict any use of the information to criminally investigate or prosecute any alcohol or drug abuse patient.[facility] CenterIn the event this information is protected by the Federal Confidentiality of Alcohol and Drug Abuse Patient Records regulations: The Federal rules restrict any use of the information to criminally investigate or prosecute any alcohol or drug abuse patient.[facility] CenterIn the event this information is protected by the Federal Confidentiality of Alcohol and Drug Abuse Patient Records regulations: The Federal rules restrict any use of the information to criminally investigate or prosecute any alcohol or drug abuse patient.[facility] CenterIn the event this information is protected by the Federal Confidentiality of Alcohol and Drug Abuse Patient Records regulations: The Federal rules restrict any use of the information to criminally investigate or prosecute any alcohol or drug abuse patient.[facility] CenterIn the event this information is protected by the Federal Confidentiality of Alcohol and Drug Abuse Patient Records regulations: The Federal rules restrict any use of the information to criminally investigate or prosecute any alcohol or drug abuse patient.[facility] CenterIn the event this information is protected by the Federal Confidentiality of Alcohol and Drug Abuse Patient Records regulations: The Federal rules restrict any use of the information to criminally investigate or prosecute any alcohol or drug abuse patient.[facility] CenterIn the event this information is protected by the Federal Confidentiality of Alcohol and Drug Abuse Patient Records regulations: The Federal rules restrict any use of the information to criminally investigate or prosecute any alcohol or drug abuse patient.[facility] CenterIn the event this information is protected by the Federal Confidentiality of Alcohol and Drug Abuse Patient Records regulations: The Federal rules restrict any use of the information to criminally investigate or prosecute any alcohol or drug abuse patient.[facility] Reason for Visit (unrecogniz ed section and content) Reason Onset Date Comments Refill Request 10/09/2021 Reason Comments Results Reason Onset Date Comments [...] ts doing well, mom states same as before. No adverse effects per pt Reason Comments [...] abdominal location Procedures CONSULT TO GASTROENTEROLOGY OFFICE/OUTPATIENT NEW HIGH MDM 60-74 MINUTES Antonio Smalls MD [address] [place] [address] Referral ID Status Reason Start Date Expiration Date V isits Requested Visits Authorized [id number] Closed PCP Requested Referral 04/18/2022 04/18/2023 1 [...] NEEDLE PERCUTANEOUS PERCUTANEOUS NEEDLE BIOPSY OF LIVER Dc [facility] [address] [place] [address] Referral ID Status Reason Start Date Expiration Date Visits Re quested Visits Authorized [id number] 1 1 Reason Onset Date Comments Refill [...] type Thrombocytosis Procedures CONSULT TO HEMATOLOGY/ONCOLOGY OFFICE/OUTPATIENT NEW HIGH MDM 60-74 MINUTES Zuleika Perez PA-C [address] [place] [address] Referral ID Status Reason Start Date Expiration Date V isits Requested Visits Authorized [id number] Closed PCP Requested Referral 08/08/2022 08/08/2023 1 1 Reason Comments Throat Problem Pt reported throat p ain, x1 wk. Reason Comments Sleep Problem Sleepy all day -- x months Specialty Diagnoses / Procedures Referred By Contac t Referred To Contact Diagnoses Malaise and fatigue Snoring Procedures CONSULT TO SLEEP MEDICINE - ADULT OFFICE/OUTPATIENT [facility] MDM 60-74 MINUTES Antonio Smalls MD [address] [place] [address] Referral ID Status Reason Start Date Expiration Date V isits Requested Visits Authorized [id number] Closed PCP Requested Referral 08/27/2022 08/27/2023 1 1 Reason Onset Date Comments Refill Request 09/09/2022 Reason Comments New Patient Chest Pain Marfans Reason Onset Date Comments Refill Request 10/09/2022 Reason Comments Returning Patient's Call Reason Onset Date Comments Refill Request 10/09/2022 Reason Comments Establish Care Specialty Diagnoses / Procedures Referred By Tree t Referred To Contact INTERNAL MEDICINE Diagnoses Attention deficit hyperactivity disorder (ADHD), combined type Procedures ESTABLISH WITH PRIMARY CARE NEW PATIENT OFFICE/OUTPATIENT [facility] MDM 60-74 MINUTES Antonio Smalls MD [address] [place] [address] [facility] [address] [place] [address] Referral ID Status Reason Start Date Expiration Date V isits Requested Visits Authorized [id number] Closed PCP Requested Referral 10/09/2022 10/09/2023 1 1 Reason Comments Cough Congestion, sneezing x 1.5 weeks Reason Comments Spirometry Specialty Diagnoses / Procedures Referred By Contac t Referred To Contact [facility] Diagnoses SOBOE (shortness of breath on exertion) Procedures SPIROMETRY WITH DILATOR IF OBSTRUCTED BRNCDILAT RSPSE SPMTRY PRE&POST-BRNCDILAT ADMN 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, SACK LIFTER.CARBON ROD INSERTER [address] [place] [address] [facility] [address] [place] [address] Referral ID Status Reason Start Date Expiration Date V isits Requested Visits Authorized [id number] Closed Auto-Generate d Referral 10/28/2022 11/27/2023 1 [...] US ABDOMINAL REAL TIME W/IMAGE LIMITED Zuleika Avalos PA-C [address] [facility] [place] [address] [facility] Imaging [facility] Referral ID Status Reason Start Date Expiration Date V isits Requested Visits Authorized [id number] Closed Auto-Generate d Referral 04/22/2023 05/21/2024 1 1 Specialty Diagnoses / Procedures Referred By Contac t Referred To Contact [facility] IMAGING Diagnoses Secondary amenorrhea Procedures US FEMALE PELVIS TRANSVAG US TRANSVAGINAL Kelly Nunez APRN.CN [address] [place] [address] Us Imaging [facility] Referral ID Status Reason Start Date Expiration Date V isits Requested Visits Authorized [id number] Closed Auto-Generate d Referral 04/09/2023 05/08/2024 1 1 Specialty Diagnoses / Procedures Referred By Contac t Referred To Contact US IMAGING Diagnoses Abnormal laboratory test Malaise and fatigue Diarrhea, unspecified type Abdominal pain, unspecified abdominal location Procedures US ABD RT UPPER QUADRANT US ABDOMINAL REAL TIME W/IMAGE LIMITED Antonio Smalls MD [address] [place] [address] [place] [address] Referral ID Status Reason Start Date Expiration Date V isits Requested Visits Authorized [id number] Closed Auto-Generate d Referral 04/18/2022 05/18/2023 1 1 Reason Comments Vaginal Problem Irritation for 1 mon . Reason Onset Date Comments Refill Request 05/16/2023 Reason Comments F/U 3 Month New to LDT Reason Comments Vaginal Problem Reason Comments Trauma Right hand injury x 3 weeks Reason Comments Cough Sore throat, SOTO, run ny nose, left ear issue x 4 days Reason Comments Vaginal Problem ? Yeast infection Reason Comments Follow Up Reason Comments Cough Runny nose, sinus pr essure and pain, bilat ear pain, headache, x 1 week Reason Comments Recheck Fatty Liver, elevate d liver enzymes, diarrhea Reason Onset Date Comments Refill Request 11/13/2023 Reason Comments Cough Cough, congestion, s inus and SOTO x 5 days-right side pain x 2 weeks Reason Onset Date Comments Refill Request 12/10/2023 Reason Comments Vaginal Discharge Vaginal Problem Reason Comments F/U 3 Month Migraine/ADHD Reason Comments right hand and wrist pain Old injury 6 m onths ago-would like it rechecked Reason Comments Pain (foot) left x 1 hour, fell Reason Comments Refill Request Reason Comments Results discuss A1C results Reason Comments Vaginal Problem Yeast Infection Reason Onset Date Comments Refill Request 02/10/2024 Reason Comments Nasal Congestion cough, sore throat, sinus pressure x 8 days Reason Comments New Pain Specialty Diagnoses / Procedures Referred By Contac t Referred To Contact Orthopedics Diagnoses Right hand pain Procedures CONSULT PANEL TO ORTHOPAEDICS OFFICE/OUTPATIENT NEW HIGH MDM 60 MINUTES Dusty García, SACK LIFTER.ELECTRIC STOVE MECHANIC [address] [place] [address] Referral ID Status Reason Start Date Expiration Date V isits Requested Visits Authorized [id number] Closed PCP Requested Referral 12/17/2023 12/16/2024 1 1 Reason Comments Problem visit Current ATB. Reason Onset Date Comments Refill Request 03/04/2024 Reason Onset Date Comments Refill Request 03/15/2024 Reason Onset Date Comments Refill Request 03/15/2024 Reason Comments F/U 3 Month diabetes Reason Onset Date Comments Refill Request 04/13/2024 Reason Comments Recheck Urinary Frequency Reason Onset Date Comments Refill Request 05/16/2024 Reason Comments Head Congestion Sinus pain and press ure, nausea, diarrhea x1 week Reason Onset Date Comments Refill Request 06/17/2024 Reason Onset Date Comments Refill Request 07/18/2024 Reason Comments F/U 3 Month Reason Comments Cough Cough, ST and runny nose x 1-2 weeks Reason Comments Follow Up last seen 2022 Reason Onset Date Comments Refill Request 09/12/2024 Reason Onset Date Comments Refill Request 09/16/2024 Reason Comments weakness, body tingles, light headed , s tarted 2 weeks ago Reason Comments Appointment Reason Comments Patient Question Reason Comments vulvar biopsy Reason Onset Date Comments Results 10/12/2024 Reason Comments ER F/U Reason Comments ER F/U [facility] ER fatigue and h aving trouble sleep at nightdoes try and take naps during the day when able. Reason Comments F/U 3 Month still very tired and when that happens becomes light headed. Reason Comments ED Follow-up lightheadedness, fat giue x 1 month Care Teams (unrecognized sec tion and content) Medical Laboratory Technologist Relationship Specialty Start Date End Date Antonio Smalls MD [address] [place], [place] [id number] PCP - General 02/26/06 Medical Laboratory Technologist Relationship Specialty Start Date End Date Antonio Smalls MD [address] [place], [place] [id number] PCP - General 02/26/06 Medical Laboratory Technologist Relationship Specialty Start Date End Date Antonio Smalls MD [address] [place], [place] [id number] PCP - General 02/26/06 Medical Laboratory Technologist Relationship Specialty Start Date End Date Antonio Smalls MD [address] [place] [address] PCP - General 02/26/06 Medical Laboratory Technologist Relationship Specialty Start Date End Date Antonio Smalls MD [address] [facility] [place] [address] PCP - General 02/26/06 Medical Laboratory Technologist Relationship Specialty Start Date End Date Antonio Smalls MD [address] [place] [place] [address] PCP - General 02/26/06 Medical Laboratory Technologist Relationship Specialty [place] [address] [place] [address], [place] [address] PCP - General 02/26/06 Medical Laboratory Technologist Relationship Specialty [place] [address] [place] [address], [place] [address] PCP - General 02/26/06 Medical Laboratory Technologist Relationship Specialty [place] [address] [place] [address], [place] [address] PCP - General 02/26/06 Medical Laboratory Technologist Relationship Specialty Start [place] [address] [place] [address], [place] [address] PCP - General 02/26/06 Medical Laboratory Technologist Relationship Specialty Start Date End Date Antonio Smalls MD [address] [place] [place] [address] PCP - General 02/26/06 Medical Laboratory Technologist Relationship Specialty [place] [address] [place] [address], [place] [address] PCP - General 02/26/06 Medical Laboratory Technologist Relationship Specialty [place] [address] [place] [address], [place] [address] PCP - General 02/26/06 Medical Laboratory Technologist Relationship Specialty Start Date End Date Antonio Smalls MD [address] [place] [place] [address] PCP - General 02/26/06 Medical Laboratory Technologist Relationship Specialty Start Date End Date Antonio Smalls MD [address] [place] [place] [address] PCP - General 02/26/06 Medical Laboratory Technologist Relationship Specialty Start [place] [address] [place] [address], [place] [address] PCP - General 02/26/06 Medical Laboratory Technologist Relationship Specialty Start [place] [address] [place] [address], [place] [address] PCP - General 02/26/06 Medical Laboratory Technologist Relationship Specialty Start Date End Date Antonio Smalls MD [address] [place] [address], [place] [address] PCP - General 02/26/06 Medical Laboratory Technologist Relationship Specialty [place] [address] [place] [address], [place] [address] PCP - General 02/26/06 Medical Laboratory Technologist Relationship Specialty Start [place] [address] [place] [address], [place] [address] PCP - General 02/26/06 Medical Laboratory Technologist Relationship Specialty Start [place] [address] [place] [address], [place] [address] PCP - General 02/26/06 Medical Laboratory Technologist Relationship Specialty Start Date End Date Antonio Smalls MD [address] [place] [address], [place] [address] PCP - General 02/26/06 Medical Laboratory Technologist Relationship Specialty Start Date End Date Antonio Smalls MD [address] [place] [place] [address] PCP - General 02/26/06 Zuleika Perez PA-C [address] [place] [address] Gastroenterology 08/22/22 Medical Laboratory Technologist Relationship Specialty Start Date End Date Antonio Smalls MD [address] [place] [address] PCP - General 02/26/06 Zuleika Perez PA-C [address] [place] [address] Gastroenterology 08/22/22 Medical Laboratory Technologist Relationship Specialty Start Date End Date Antonio Smalls MD [address] [place] [address] PCP - General 02/26/06 Zuleika Perez PA-C [address] [place] [address] Gastroenterology 08/22/22 Medical Laboratory Technologist Relationship Specialty Start Date End Date Antonio Smalls MD [address] [place] [address] PCP - General 02/26/06 Zuleika Perez PA-C [address] [place] [address] Gastroenterology 08/22/22 Medical Laboratory Technologist Relationship Specialty Start Date End Date Antonio Smalls MD [address] [place] [address] PCP - General 02/26/06 Zuleika Perez PA-C [address] [place] [address] Gastroenterology 08/22/22 Medical Laboratory Technologist Relationship Specialty Start Date End Date Antonio Smalls MD [address] [place] [address] PCP - General 02/26/06 Zuleika Perez PA-C [address] [place] [address] Gastroenterology 08/22/22 Medical Laboratory Technologist Relationship Specialty Start Date End Date Antonio Smalls MD [address] [place] [address] PCP - General 02/26/06 Zuleika Perez PA-C [address] [place] [address] Gastroenterology 08/22/22 Medical Laboratory Technologist Relationship Specialty Start Date End Date Antonio Smalls MD [address] [place] [address] PCP - General 02/26/06 Zuleika Perez PA-C [address] [place] [address] Gastroenterology 08/22/22 Medical Laboratory Technologist Relationship Specialty Start Date End Date Antonio Smalls MD [address] [place] [address] PCP - General 02/26/06 Zuleika Perez PA-C [address] [place] [address] Gastroenterology 08/22/22 Medical Laboratory Technologist Relationship Specialty Start Date End Date Antonio Smalls MD [address] [place] [address] PCP - General 02/26/06 Zuleika Perez PA-C [address] [place] [address] Gastroenterology 08/22/22 Medical Laboratory Technologist Relationship Specialty Start Date End Date Carlie Arreguin MD [address] [place] [address] PCP - General Family Medicine 10/09/22 Zuleika Perez PA-C [address] [place] [address] Gastroenterology 08/22/22 Medical Laboratory Technologist Relationship Specialty Start Date End Date Carlie Arreguin MD [address] [place] [address] PCP - General Family Medicine 10/09/22 Zuleika Perez PA-C [address] [place] [address] Gastroenterology 08/22/22 Medical Laboratory Technologist Relationship Specialty Start Date End Date Carlie Arreguin MD [address] [place] [address] PCP - General Family Medicine 10/09/22 Zuleika Perez PA-C [address] [place] [address] Gastroenterology 08/22/22 Medical Laboratory Technologist Relationship Specialty Start Date End Date Carlie Arreguin MD [address] [place] [address] PCP - General Family Medicine 10/09/22 Zuleika Perez PA-C [address] [place] [address] Gastroenterology 08/22/22 Medical Laboratory Technologist Relationship Specialty Start Date End Date Kate Silva MD [address] [place] [place] [address] PCP - General Internal Medicine 10/28/22 Zuleika Perez PA-C [address] [place] [address] Gastroenterology 08/22/22 Medical Laboratory Technologist Relationship Specialty Start Date End Date Kate Silva MD [address] [place] [address] PCP - General Internal Medicine 10/28/22 Zuleika Perez PA-C [address] [place] [address] Gastroenterology 08/22/22 Medical Laboratory Technologist Relationship Specialty Start Date End Date Kate Silva MD [address] [place] [address] PCP - General Internal Medicine 10/28/22 Zuleika Perez PA-C [address] [place] [address] Gastroenterology 08/22/22 Medical Laboratory Technologist Relationship Specialty Start Date End Date Kate Silva MD [address] [place] [address] PCP - General Internal Medicine 10/28/22 Zuleika Perez PA-C [address] [place] [address] Gastroenterology 08/22/22 Medical Laboratory Technologist Relationship Specialty Start Date End Date Kate Silva MD [address] [place] [address] PCP - General Internal Medicine 10/28/22 Zuleika Perez PA-C [address] [place] [address] Gastroenterology 08/22/22 Medical Laboratory Technologist Relationship Specialty Start Date End Date Kate Silva MD [address] [place] [address] PCP - General Internal Medicine 10/28/22 Zuleika Perez PA-C [address] [place] [address] Gastroenterology 08/22/22 Medical Laboratory Technologist Relationship Specialty Start Date End Date Kate Silva MD [address] [place] [address] PCP - General Internal Medicine 10/28/22 Zuleika Perez PA-C [address] [place] [address] Gastroenterology 08/22/22 Medical Laboratory Technologist Relationship Specialty Start Date End Date Kate Silva MD [address] [place] [address] PCP - General Internal Medicine 10/28/22 Zuleika Perez PA-C [address] [place] [address] Gastroenterology 08/22/22 Medical Laboratory Technologist Relationship Specialty Start Date End Date Kate Silva MD [address] [place] [address] PCP - General Internal Medicine 10/28/22 Zuleika Perez PA-C [address] [place] [address] Gastroenterology 08/22/22 Medical Laboratory Technologist Relationship Specialty Start Date End Date Kate Silva MD [address] [place] [address] PCP - General Internal Medicine 10/28/22 Zuleika Perez PA-C [address] [place] [address] Gastroenterology 08/22/22 Medical Laboratory Technologist Relationship Specialty Start Date End Date Kate Silva MD [address] [place], [place] [address] PCP - General Internal Medicine 10/28/22 Zuleika Perez PA-C [address] [place] [address] Gastroenterology 08/22/22 Medical Laboratory Technologist Relationship Specialty Start Date End Date Kate Silva MD [address] [place] [address] PCP - General Internal Medicine 10/28/22 Zuleika Perez PA-C [address] [place] [address] Gastroenterology 08/22/22 Medical Laboratory Technologist Relationship Specialty Start Date End Date Kate Silva MD [address] [place] [address] PCP - General Internal Medicine 10/28/22 Zuleika Perez PA-C [address] [place] [address] Gastroenterology 08/22/22 Medical Laboratory Technologist Relationship Specialty Start Date End Date Kate Silva MD [address] [place], [place] [address]751 PCP - General Internal Medicine 10/28/22 Zuleika Perez PA-C [address] [place] [address] Gastroenterology 08/22/22 Medical Laboratory Technologist Relationship Specialty Start Date End Date Kate Silva MD [address] [place], [place] [address]201 PCP - General Internal Medicine 10/28/22 Zuleika Perez PA-C [address] [place] [address] Gastroenterology 08/22/22 Medical Laboratory Technologist Relationship Specialty Start Date End Date Kate Silva MD [address] [place] [address] PCP - General Internal Medicine 10/28/22 Zuleika Perez PA-C [address] [place] [address] Gastroenterology 08/22/22 Medical Laboratory Technologist Relationship Specialty Start Date End Date Kate Silva MD [address] [place], [place] 112761 PCP - General Internal Medicine 10/28/22 Zuleika Perez PA-C [address] [place], [place] [id number] Gastroenterology 08/22/22 Medical Laboratory Technologist Relationship Specialty Start Date End Date Kate Silva MD [address] [place] [address] PCP - General Internal Medicine 10/28/22 Zuleika Perez PA-C [address] [place], [place] [id number] Gastroenterology 08/22/22 Gopal Yanez MD [address] [place] [address] Hematology/Oncology 02/07/23 Medical Laboratory Technologist Relationship Specialty Start Date End Date Kate Silva MD [address] [place] [address] PCP - General Internal Medicine 10/28/22 Zuleika Perez PA-C [address] [place], [place] [address] Gastroenterology 08/22/22 Gopal Yanez MD [address] [place] [address] Hematology/Oncology 02/07/23 Medical Laboratory Technologist Relationship Specialty Start Date End Date Kate Silva MD [address] [place] [address] PCP - General Internal Medicine 10/28/22 Zuleika Perez PA-C [address] [facility] [place] [place] [id number] Gastroenterology 08/22/22 Gopal Yanez MD [address] [facility] [place] [address] Hematology/Oncology 02/07/23 Medical Laboratory Technologist Relationship Specialty Start Date End Date Kate Silva MD [address] [facility] [place] [address] PCP - General Internal Medicine 10/28/22 Zuleika Perez PA-C [address] [place] [address] Gastroenterology 08/22/22 Gopal Yanez MD [address] [facility] [place] [address] Hematology/Oncology 02/07/23 Medical Laboratory Technologist Relationship Specialty Start Date End Date Kate Silva MD [address] [facility] [place] [address] PCP - General Internal Medicine 10/28/22 Zuleika Perez PA-C [address] [place] [address] Gastroenterology 08/22/22 Gopal Yanez MD [address] [facility] [place] [address] Hematology/Oncology 02/07/23 Medical Laboratory Technologist Relationship Specialty Start Date End Date Kate Silva MD [address] [facility] [place] [address] PCP - General Internal Medicine 10/28/22 Zuleika Perez PA-C [address] [place] [address] Gastroenterology 08/22/22 Gopal Yanez MD [address] [place] [address] Hematology/Oncology 02/07/23 Medical Laboratory Technologist Relationship Specialty Start Date End Date Kate Silva MD [address] [place] [address] PCP - General Internal Medicine 10/28/22 Zuleika Avalos PA-C [address] [place] [address] Gastroenterology 08/22/22 Gopal Yanez MD [address] [place] [address] Hematology/Oncology 02/07/23 Medical Laboratory Technologist Relationship Specialty Start Date End Date Kate Silva MD [address] [place] [address] PCP - General Internal Medicine 10/28/22 Zuleika Avalos PA-C [address] [place] [address] Gastroenterology 08/22/22 Gopal Yanez MD [address] [facility] [place] [address] Hematology/Oncology 02/07/23 Medical Laboratory Technologist Relationship Specialty Start Date End Date Kate Silva MD [address] [place] [address] PCP - General Internal Medicine 10/28/22 Zuleika Avalos PA-C [address] [place] [address] Gastroenterology 08/22/22 Gopal Yanez MD [address] [place] [address] Hematology/Oncology 02/07/23 Medical Laboratory Technologist Relationship Specialty Start Date End Date Antonio Smalls MD [address] [place] [address] PCP - General 02/26/06 10/08/22 Medical Laboratory Technologist Relationship Specialty Start Date End Date Kate Silva MD [address] [place] [address] PCP - General Internal Medicine 10/28/22 Zuleika Avalos PA-C [address] [place] [address] Gastroenterology 08/22/22 Gopal Yanez MD [address] [place] [address] Hematology/Oncology 02/07/23 Medical Laboratory Technologist Relationship Specialty Start Date End Date Kate Silva MD [address] [place] [address] PCP - General Internal Medicine 10/28/22 Zuleika Avalos PA-C [address] [place] [address] Gastroenterology 08/22/22 Gopal Yanez MD [address] [place] [address] Hematology/Oncology 02/07/23 Medical Laboratory Technologist Relationship Specialty Start Date End Date Kate Silva MD [address] [facility] [place] [address] PCP - General Internal Medicine 10/28/22 Zuleika Avalos PA-C [address] [facility] [place] [address] Gastroenterology 08/22/22 Gopal Yanez MD [address] [place] [address] Hematology/Oncology 02/07/23 Medical Laboratory Technologist Relationship Specialty Start Date End Date Kate Silva MD [address] [facility] [place] [address] PCP - General Internal Medicine 10/28/22 Zuleika Avalos PA-C [address] [place] [address] Gastroenterology 08/22/22 Gopal Yanez MD [address] [place] [address] Hematology/Oncology 02/07/23 Medical Laboratory Technologist Relationship Specialty Start Date End Date Kate Silva MD [address] [facility] [place] [address] PCP - General Internal Medicine 10/28/22 Zuleika Avalos PA-C [address] [place], [place] [id number] Gastroenterology 08/22/22 Gopal Yanez MD [address] [place] [address] Hematology/Oncology 02/07/23 Medical Laboratory Technologist Relationship Specialty Start Date End Date Kate Silva MD [address] [place] [address] PCP - General Internal Medicine 10/28/22 Zuleika Avalos PA-C [address] [place], [place] [address] Gastroenterology 08/22/22 Gopal Yanez MD [address] [place] [address] Hematology/Oncology 02/07/23 Medical Laboratory Technologist Relationship Specialty Start Date End Date Kate Silva MD [address] [place] [address] PCP - General Internal Medicine 10/28/22 Zuleika Avalos PA-C [address] [facility] [place] [place] [address] Gastroenterology 08/22/22 Gopal Yanez MD [address] [place] [address] Hematology/Oncology 02/07/23 Medical Laboratory Technologist Relationship Specialty Start Date End Date Kate Silva MD [address] [place] [address] PCP - General Internal Medicine 10/28/22 Zuleika Avalos PA-C [address] [place] [address] Gastroenterology 08/22/22 Gopal Yanez MD [address] [place] [address] Hematology/Oncology 02/07/23 Medical Laboratory Technologist Relationship Specialty Start Date End Date Kate Silva MD [address] [place] [address] PCP - General Internal Medicine 10/28/22 Zuleika Avalos PA-C [address] [place], [place] [id number] Gastroenterology 08/22/22 Gopal Yanez MD [address] [place] [address] Hematology/Oncology 02/07/23 Medical Laboratory Technologist Relationship Specialty Start Date End Date Kate Silva MD [address] [place] [address] PCP - General Internal Medicine 10/28/22 Zuleika Avalos PA-C [address] [facility] [place] [address] Gastroenterology 08/22/22 Gopal Yanez MD [address] [facility] [place] [address] Hematology/Oncology 02/07/23 Medical Laboratory Technologist Relationship Specialty Start Date End Date Kate Silva MD [address] [facility] [place] [address] PCP - General Internal Medicine 10/28/22 Zuleika Avalos PA-C [address] [place] [address] Gastroenterology 08/22/22 Gopal Yanez MD [address] [facility] [place] [address] Hematology/Oncology 02/07/23 Medical Laboratory Technologist Relationship Specialty Start Date End Date Kate Silva MD [address] [facility] [place] [address] PCP - General Internal Medicine 10/28/22 Zuleika Avalos PA-C [address] [place] [address] Gastroenterology 08/22/22 Gopal Yanez MD [address] [place] [address] Hematology/Oncology 02/07/23 Medical Laboratory Technologist Relationship Specialty Start Date End Date Kate Silva MD [address] [facility] [place] [address] PCP - General Internal Medicine 10/28/22 Zuleika Avalos PA-C [address] [place] [address] Gastroenterology 08/22/22 Gopal Yanez MD [address] [place] [address] Hematology/Oncology 02/07/23 Medical Laboratory Technologist Relationship Specialty Start Date End Date Kate Silva MD [address] [place] [address] PCP - General Internal Medicine 10/28/22 Zuleika Avalos PA-C [address] [place] [address] Gastroenterology 08/22/22 Gopal Yanez MD [address] [place] [address] Hematology/Oncology 02/07/23 Medical Laboratory Technologist Relationship Specialty Start Date End Date Kate Silva MD [address] [place] [address] PCP - General Internal Medicine 10/28/22 Zuleika Avalos PA-C [address] [place] [address] Gastroenterology 08/22/22 Gopal Yanez MD [address] [place] [address] Hematology/Oncology 02/07/23 Medical Laboratory Technologist Relationship Specialty Start Date End Date Kate Silva MD [address] [place] [address] PCP - General Internal Medicine 10/28/22 Zuleika Avalos PA-C [address] [facility] [place] [address] Gastroenterology 08/22/22 Gopal Yanez MD [address] [place] [address] Hematology/Oncology 02/07/23 Medical Laboratory Technologist Relationship Specialty Start Date End Date Kate Silva MD [address] [place] [address] PCP - General Internal Medicine 10/28/22 Zuleika Avalos PA-C [address] [place] [address] Gastroenterology 08/22/22 Gopal Yanez MD [address] [place] [address] Hematology/Oncology 02/07/23 Medical Laboratory Technologist Relationship Specialty Start Date End Date Kate Silva MD [address] [place] [address] PCP - General Internal Medicine 10/28/22 Zuleika Avalos PA-C [address] [facility] [place] [address] Gastroenterology 08/22/22 Gopal Yanez MD [address] [place] [address] Hematology/Oncology 02/07/23 Medical Laboratory Technologist Relationship Specialty Start Date End Date Kate Silva MD [address] [place] [address] PCP - General Internal Medicine 10/28/22 Zuleika Avalos PA-C [address] [place], [place] [id number] Gastroenterology 08/22/22 Gopal Ynaez MD [address] [place] [address] Hematology/Oncology 02/07/23 Medical Laboratory Technologist Relationship Specialty Start Date End Date Kate Silva MD [address] [place] [address] PCP - General Internal Medicine 10/28/22 Zuleika Avalos PA-C [address] [place], [place] [address] Gastroenterology 08/22/22 Gopal Yanez MD [address] [place] [address] Hematology/Oncology 02/07/23 Medical Laboratory Technologist Relationship Specialty Start Date End Date Kate Silva MD [address] [place] [address] PCP - General Internal Medicine 10/28/22 Zuleika Avalos PA-C [address] [facility] [place] [place] [id number] Gastroenterology 08/22/22 Gopal Yanez MD [address] [facility] [address] Hematology/Oncology 02/07/23 Medical Laboratory Technologist Relationship Specialty Start Date End Date Kate Silva MD [address] [facility] [place] [address] PCP - General Internal Medicine 10/28/22 Zuleika Avalos PA-C [address] [place] [address] Gastroenterology 08/22/22 Gopal Yanez MD [address] [place] [address] Hematology/Oncology 02/07/23 Medical Laboratory Technologist Relationship Specialty Start Date End Date Kate Silva MD [address] [place] [address] PCP - General Internal Medicine 10/28/22 Zuleika Avalos PA-C [address] [place] [address] Gastroenterology 08/22/22 Gopal Yanez MD [address] [facility] [place] [address] Hematology/Oncology 02/07/23 Medical Laboratory Technologist Relationship Specialty Start Date End Date Kate Silva MD [address] [place] [address] PCP - General Internal Medicine 10/28/22 Zuleika Avalos PA-C [address] [place] [address] Gastroenterology 08/22/22 Gopal Yanez MD [address] [place] [address] Hematology/Oncology 02/07/23 Medical Laboratory Technologist Relationship Specialty Start Date End Date Kate Silva MD [address] [place] [address] PCP - General Internal Medicine 10/28/22 Zuleika Avalos PA-C [address] [place] [address] Gastroenterology 08/22/22 Gopal Yanez MD [address] [facility] [address] Hematology/Oncology 02/07/23 Medical Laboratory Technologist Relationship Specialty Start Date End Date Kate Silva MD [address] [place] [address] PCP - General Internal Medicine 10/28/22 Zuleika Avalos PA-C [address] [place] [address] Gastroenterology 08/22/22 Gopal Yanez MD [address] [place] [address] Hematology/Oncology 02/07/23 Medical Laboratory Technologist Relationship Specialty Start Date End Date Kate Silva MD [address] [place] [address] PCP - General Internal Medicine 10/28/22 Zuleika Avalos PA-C [address] [place] [address] Gastroenterology 08/22/22 Gopal Yanez MD [address] [place] [address] Hematology/Oncology 02/07/23 Medical Laboratory Technologist Relationship Specialty Start Date End Date Kate Silva MD [address] [place] [address] PCP - General Internal Medicine 10/28/22 Zuleika Avalos PA-C [address] [place] [address] Gastroenterology 08/22/22 Gopal Yanez MD [address] [place] [address] Hematology/Oncology 02/07/23 Medical Laboratory Technologist Relationship Specialty Start Date End Date Kate Silva MD [address] [place] [address] PCP - General Internal Medicine 10/28/22 Zuleika Avalos PA-C [address] [facility] [place] [address] Gastroenterology 08/22/22 Gopal Yanez MD [address] [place] [address] Hematology/Oncology 02/07/23 Medical Laboratory Technologist Relationship Specialty Start Date End Date Kate Silva MD [address] [facility] [place] [address] PCP - General Internal Medicine 10/28/22 Zuleika Avalos PA-C [address] [place] [address] Gastroenterology 08/22/22 Gopal Yanez MD [address] [place] [address] Hematology/Oncology 02/07/23 Medical Laboratory Technologist Relationship Specialty Start Date End Date Kate Silva MD [address] [place] [address] PCP - General Internal Medicine 10/28/22 Zuleika Avalos PA-C [address] [place] [address] Gastroenterology 08/22/22 Gopal Yanez MD [address] [facility] [address] Hematology/Oncology 02/07/23 Medical Laboratory Technologist Relationship Specialty Start Date End Date Antonio Smalls MD [address] [place], [place] [id number] PCP - General 02/26/06 10/08/22 Medical Laboratory Technologist Relationship Specialty Start Date End Date Antonio Smalls MD [address] [place], [place] [id number] PCP - General 02/26/06 10/08/22 Medical Laboratory Technologist Relationship Specialty Start Date End Date Kate Silva MD [address] [place] [address] PCP - General Internal Medicine 10/28/22 Zuleika Avalos PA-C [address] [place] [address] Gastroenterology 08/22/22 Gopal Yanez MD [address] [facility] [address] Hematology/Oncology 02/07/23 Medical Laboratory Technologist Relationship Specialty Start Date End Date Kate Silva MD [address] [place] [address] PCP - General Internal Medicine 10/28/22 Zuleika Avalos PA-C [address] [place] [address] Gastroenterology 08/22/22 Gopal Yanez MD [address] [place] [address] Hematology/Oncology 02/07/23 Medical Laboratory Technologist Relationship Specialty Start Date End Date Kate Silva MD [address] [place] [address] PCP - General Internal Medicine 10/28/22 Zuleika Avalos PA-C [address] [place] [address] Gastroenterology 08/22/22 Gopal Yanez MD [address] [place], [place] [address] Hematology/Oncology 02/07/23 Medical Laboratory Technologist Relationship Specialty Start Date End Date Kate Silva MD [address] [place] [address] PCP - General Internal Medicine 10/28/22 Zuleika Avalos PA-C [address] [place] [address] Gastroenterology 08/22/22 Gopal Yanez MD [address] [facility] [address] Hematology/Oncology 02/07/23 Medical Laboratory Technologist Relationship Specialty Start Date End Date Kate Silva MD [address] [place] [address] PCP - General Internal Medicine 10/28/22 Zuleika Avalos PA-C [address] [place] [address] Gastroenterology 08/22/22 Gopal Yanez MD [address] [place] [address] Hematology/Oncology 02/07/23 Medical Laboratory Technologist Relationship Specialty Start Date End Date Kate Silva MD [address] [place] [address] PCP - General Internal Medicine 10/28/22 Zuleika Avalos PA-C [address] [place] [address] Gastroenterology 08/22/22 Gopal Yanez MD [address] [place] [address] Hematology/Oncology 02/07/23 Medical Laboratory Technologist Relationship Specialty Start Date End Date Kate Silva MD [address] [place] [address] PCP - General Internal Medicine 10/28/22 Zuleika Avalos PA-C [address] [place] [address] Gastroenterology 08/22/22 Gopal Yanez MD [address] [place] [address] Hematology/Oncology 02/07/23 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, SACK LIFTER.CARBON ROD INSERTER [address] [place] [address] Leather Coater Internal Medicine 06/07/24 Sher Hollingsworth, SACK LIFTER.ELECTRIC STOVE MECHANIC [address] [place] [address] Leather Coater Internal Medicine 06/07/24 Medical Laboratory Technologist Relationship Specialty Start Date End Date Kate Silva MD [address] [place] [address] PCP - General Internal Medicine 10/28/22 Zuleika Avalos PA-C [address] [place] [address] Gastroenterology 08/22/22 Gopal Yanez MD [address] [place] [address] Hematology/Oncology 02/07/23 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 APRN.CARBON ROD INSERTER [address] [place] [address] Leather Coater Internal Medicine 06/07/24 Sher Hollingsworth APRN.ELECTRIC STOVE MECHANIC [address] [place] [address] Leather Coater Internal Medicine 06/07/24 Medical Laboratory Technologist Relationship Specialty Start Date End Date Kate Silva MD [address] [place] [address] PCP - General Internal Medicine 10/28/22 Zuleika Avalos PA-C [address] [place] [address] Gastroenterology 08/22/22 Gopal Yanez MD [address] [place] [address] Hematology/Oncology 02/07/23 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 APRN.CARBON ROD INSERTER [address] [place] [address] Leather Coater Internal Medicine 06/07/24 Sher Hollingsworth APRN.ELECTRIC STOVE MECHANIC [address] [place] [address] Leather Coater Internal Medicine 06/07/24 Medical Laboratory Technologist Relationship Specialty Start Date End Date Kate Silva MD [address] [place], [place] [address] PCP - General Internal Medicine 10/28/22 Zuleika Avalos PA-C [address] [place] [address] Gastroenterology 08/22/22 Gopal Yanez MD [address] [place] [address] Hematology/Oncology 02/07/23 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 APRN.CARBON ROD INSERTER [address] [place] [address] Leather Coater Internal Medicine 06/07/24 Sher Hollingsworth APRN.ELECTRIC STOVE MECHANIC [address] [place] [address] Leather Coater Internal Medicine 06/07/24 Medical Laboratory Technologist Relationship Specialty Start Date End Date Kate Silva MD [address] [place] [address] PCP - General Internal Medicine 10/28/22 Zuleika Avalos PA-C [address] [place] [address] Gastroenterology 08/22/22 Gopal Yanez MD [address] [place], [place] [address] Hematology/Oncology 02/07/23 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, SACK LIFTER.CARBON ROD INSERTER [address] [place] [address] Leather Coater Internal Medicine 06/07/24 Sher Hollingsworth SACK LIFTER.ELECTRIC STOVE MECHANIC [address] [place] [address] Leather Coater Internal Medicine 06/07/24 Medical Laboratory Technologist Relationship Specialty Start Date End Date Kate Silva MD [address] [place] [address] PCP - General Internal Medicine 10/28/22 Zuleika Avalos PA-C [address] [place], [place] [address] Gastroenterology 08/22/22 Gopal Yanez MD [address] [place] [address] Hematology/Oncology 02/07/23 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, SACK LIFTER.CARBON ROD INSERTER [address] [place] [address] Leather Coater Internal Medicine 06/07/24 Sher Hollingsworth SACK LIFTER.ELECTRIC STOVE MECHANIC [address] [place] [address] Leather Coater Internal Medicine 06/07/24 Medical Laboratory Technologist Relationship Specialty Start Date End Date Kate Silva MD [address] [place] [address] PCP - General Internal Medicine 10/28/22 Zuleika Avalos PA-C [address] [place] [address] Gastroenterology 08/22/22 Gopal Yanez MD [address] [place] [address] Hematology/Oncology 02/07/23 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, SACK LIFTER.CARBON ROD INSERTER [address] [place] [address] Leather Coater Internal Medicine 06/07/24 Sher Hollingsworth SACK LIFTER.ELECTRIC STOVE MECHANIC [address] [place] [address] Leather Coater Internal Medicine 06/07/24 Medical Laboratory Technologist Relationship Specialty Start Date End Date Kate Silva MD [address] [place] [address] PCP - General Internal Medicine 10/28/22 Zuleika Avalos PA-C [address] [place] [address] Gastroenterology 08/22/22 Gopal Yanez MD [address] [place] [address] Hematology/Oncology 02/07/23 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, SACK LIFTER.CARBON ROD INSERTER [address] [place] [address] Leather Coater Internal Medicine 06/07/24 Sher Hollingsworth SACK LIFTER.ELECTRIC STOVE MECHANIC [address] [place] [address] Leather Coater Internal Medicine 06/07/24 Medical Laboratory Technologist Relationship Specialty Start Date End Date Kate Silva MD [address] [facility] [place] [address] PCP - General Internal Medicine 10/28/22 Zuleika Avalos PA-C [address] [facility] [place] [address] Gastroenterology 08/22/22 Gopal Yanez MD [address] [place] [address] Hematology/Oncology 02/07/23 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, SACK LIFTER.CARBON ROD INSERTER [address] [facility] [place] [address] Leather Coater Internal Medicine 06/07/24 Sher Hollingsworth SACK LIFTER.ELECTRIC STOVE MECHANIC [address] [facility] [place] [address] [facility] Internal Medicine 06/07/24 Medical Laboratory Technologist Relationship Specialty Start Date End Date Kate Silva MD [address] [facility] [place] [address] PCP - General Internal Medicine 10/28/22 Zuleika Avalos PA-C [address] [place] [address] Gastroenterology 08/22/22 Gopal Yanez MD [address] [place] [address] Hematology/Oncology 02/07/23 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, SACK LIFTER.CARBON ROD INSERTER [address] [facility] [address] Leather Coater Internal Medicine 06/07/24 Sher Hollingsworth APRN.ELECTRIC STOVE MECHANIC [address] [place] [address] Leather Coater Internal Medicine 09/21/24 Team Status: Active Member Role Status Dates Dr. Kate Silva MD Primary Care Provider Active Team Status: Inactive Member Role Status Dates Dr. Kate Silva MD Primary Care Provider Active Start: September 29, 2024 End: September 29, 2024 Dr. Shiv Roper DO Emergency Provider Active Start: September 29, 2024 End: September 29, 2024 Medical Laboratory Technologist Relationship Specialty Start Date End Date Kate Silva MD [address] [place] [address] PCP - General Internal Medicine 10/28/22 Zuleika Avalos PA-C [address] [facility], [place] [id number] Gastroenterology 08/22/22 Gopal Yanez MD [address] [facility] [place] [address] Hematology/Oncology 02/07/23 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, HARLAN.CARBON ROD INSERTER [address] [facility] [address] [facility] Internal Medicine 06/07/24 Sher Hollingsworth SACK LIFTER.ELECTRIC STOVE MECHANIC [address] [facility] [place] [address] [facility] Internal Medicine 09/21/24 Medical Laboratory Technologist Relationship Specialty Start Date End Date Kate Silva MD [address] [facility], [place] [id number] PCP - General Internal Medicine 10/28/22 Zuleika Avalos PA-C [address] [facility] [place] [id number] Gastroenterology 08/22/22 Gopal Yanez MD [address] [facility], [place] [address] Hematology/Oncology 02/07/23 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, SACK LIFTER.CARBON ROD INSERTER [address] [facility] [place] [address] [facility] Internal Medicine 06/07/24 Sher Hollingsworth SACK LIFTER.ELECTRIC STOVE MECHANIC [address] [facility] [place] [address] [facility] Internal Medicine 09/21/24 Team Status: Inactive Member Role Status Dates Dr. Kate Silva MD Primary Care Provider Active Start: September 29, 2024 End: September 29, 2024 Dr. Shiv Roper DO Attending Provider Active Start: September 29, 2024 End: September 29, 2024 Dr. Shiv Roper DO Emergency Provider Active Start: September 29, 2024 End: September 29, 2024 Team Status: Inactive Member Role Status Dates Dr. Kate Silva MD Primary Care Provider Active Start: October 06, 2024 End: October 06, 2024 Dr. Mike Feldman DO Emergency Provider Active Start : October 06, 2024 End: October 06, 2024 Medical Laboratory Technologist Relationship Specialty Start Date End Date Kate Silva MD [address] [facility], [place] [id number] PCP - General Internal Medicine 10/28/22 Zuleika Avalos PA-C [address] [place] [address] Gastroenterology 08/22/22 Gopal Yanez MD [address] [place] [address] Hematology/Oncology 02/07/23 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 APRN.CARBON ROD INSERTER [address] [place] [address] [facility] Internal Medicine 06/07/24 Sher Hollingsworth APRN.ELECTRIC STOVE MECHANIC [address] [place] [address] [facility] Internal Medicine 09/21/24 Medical Laboratory Technologist Relationship Specialty Start Date End Date Kate Silva MD [address] [place] [address] PCP - General Internal Medicine 10/28/22 Zuleika Avalos PA-C [address] [place] [address] Gastroenterology 08/22/22 Gopal Yanez MD [address] [place] [address] Hematology/Oncology 02/07/23 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 APRN.CARBON ROD INSERTER [address] [place] [address] [facility] Internal Medicine 06/07/24 Sher Hollingsworth APRN.ELECTRIC STOVE MECHANIC [address] [place] [address] [facility] Internal Medicine 09/21/24 Medical Laboratory Technologist Relationship Specialty Start Date End Date Kate Silva MD [address] [place] [address] PCP - General Internal Medicine 10/28/22 Zuleika Avalos PA-C [address] [place] [address] Gastroenterology 08/22/22 Gopal Yanez MD [address] [place] [address] Hematology/Oncology 02/07/23 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, SACK LIFTER.CARBON ROD INSERTER [address] [place] [address] [facility] Internal Medicine 06/07/24 Sher Hollingsworth SACK LIFTER.ELECTRIC STOVE MECHANIC [address] [place] [address] [facility] Internal Medicine 09/21/24 Medical Laboratory Technologist Relationship Specialty Start Date End Date Kate Silva MD [address] [place] [address] PCP - General Internal Medicine 10/28/22 Zuleika Avalos PA-C [address] [place] [address] Gastroenterology 08/22/22 Gopal Yanez MD [address] [place] [address] Hematology/Oncology 02/07/23 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, SACK LIFTER.CARBON ROD INSERTER [address] [place] [address] [facility] Internal Medicine 06/07/24 Sher Hollingsworth SACK LIFTER.ELECTRIC STOVE MECHANIC [address] [place] [address] [facility] Internal Medicine 09/21/24 Medical Laboratory Technologist Relationship Specialty Start Date End Date Kate Silva MD [address] [place] [address] PCP - General Internal Medicine 10/28/22 Zuleika Avalos PA-C [address] [place] [address] Gastroenterology 08/22/22 Gopal Yanez MD [address] [place] [address] Hematology/Oncology 02/07/23 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, SACK LIFTER.CARBON ROD INSERTER [address] [place] [address] [facility] Internal Medicine 06/07/24 Sher Hollingsworth SACK LIFTER.ELECTRIC STOVE MECHANIC [address] [place] [address] [facility] Internal Medicine 09/21/24 Medical Laboratory Technologist Relationship Specialty Start Date End Date Kate Silva MD [address] [place] [address] PCP - General Internal Medicine 10/28/22 Zuleika Avalos PA-C [address] [facility] [place] [address] Gastroenterology 08/22/22 Gopal Yanez MD [address] [place], [place] [address] Hematology/Oncology 02/07/23 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, SACK LIFTER.CARBON ROD INSERTER [address] [facility] [place] [address] [facility] Internal Medicine 06/07/24 Sher Hollingsworth SACK LIFTER.ELECTRIC STOVE MECHANIC [address] [facility] [place] [address] [facility] Internal Medicine 09/21/24 Team Status: Inactive Member Role Status Dates Dr. Kate Silva MD Primary Care Provider Active Start: October 06, 2024 End: October 06, 2024 Dr. Mike Feldman DO Attending Provider Active Start : October 06, 2024 End: October 06, 2024 Dr. Mike Feldman DO Emergency Provider Active Start : October 06, 2024 End: October 06, 2024 Team Status: Inactive Member Role Status Dates Dr. Kate Silva MD Primary Care Provider Active Start: October 25, 2024 End: October 25, 2024 Pérez Ren MD Emergency Provider Active Star t: October 25, 2024 End: October 25, 2024 Medical Laboratory Technologist Relationship Specialty Start Date End Date Kate Silva MD [address] [facility] [place] [address] PCP - General Internal Medicine 10/28/22 Zuleika Avalos PA-C [address] [facility] [place] [address] Gastroenterology 08/22/22 Gopal Yanze MD [address] [place] [address] Hematology/Oncology 02/07/23 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 APRN.CARBON ROD INSERTER [address] [place] [address] [facility] Internal Medicine 06/07/24 Sher Hollingsworth APRN.ELECTRIC STOVE MECHANIC [address] [place] [address] [facility] [employer] Internal Medicine 09/21/24 Medical Laboratory Technologist Relationship Specialty Start Date End Date Kate Sliva MD [address] [place] [address] PCP - General Internal Medicine 10/28/22 Zuleika Avalos PA-C [address] [place] [address] Gastroenterology 08/22/22 Gopal Yanez MD [address] [place] [address] Hematology/Oncology 02/07/23 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 SACK LIFTER.CARBON ROD INSERTER [address] [place] [address] [facility] Internal Medicine 06/07/24 Sher Hollingsworth APRN.ELECTRIC STOVE MECHANIC [address] [place] [address] [facility] Internal Medicine 09/21/24 Medical Laboratory Technologist Relationship Specialty Start Date End Date Kate Silva MD [address] [place] [address] PCP - General Internal Medicine 10/28/22 Zuleika Avalos PA-C [address] [facility] [place] [address] Gastroenterology 08/22/22 Gopal Yanez MD [address] [place] [address] Hematology/Oncology 02/07/23 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, SACK LIFTER.CARBON ROD INSERTER [address] [place] [address] [facility] [employer] Internal Medicine 06/07/24 Sher Hollingsworth, SACK LIFTER.ELECTRIC STOVE MECHANIC [address] [place] [address] [facility] [employer] Internal Medicine 09/21/24 Medical Laboratory Technologist Relationship Specialty Start Date End Date Kate Silva MD [address] [place] [address] PCP - General Internal Medicine 10/28/22 Zuleika Avalos PA-C [address] [facility] [place] [address] Gastroenterology 08/22/22 Gopal Yanez MD [address] [place] [address] Hematology/Oncology 02/07/23 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, SACK LIFTER.CARBON ROD INSERTER [address] [place] [address] [facility] Internal Medicine 06/07/24 Sher Hollingsworth, SACK LIFTER.ELECTRIC STOVE MECHANIC [address] [place] [address] [facility] Internal Medicine 09/21/24 Medical Laboratory Technologist Relationship Specialty Start Date End Date Kate Silva MD [address] [place] [address] PCP - General Internal Medicine 10/28/22 Zuleika Avalos PA-C [address] [facility] [place] [place] [id number] Gastroenterology 08/22/22 Gopal Yanez MD [address] [place] [address] Hematology/Oncology 02/07/23 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 APRN.CARBON ROD INSERTER [address] [place] [address] [facility] Internal Medicine 06/07/24 Sher Hollingsworth SACK LIFTER.ELECTRIC STOVE MECHANIC [address] [place] [address] [facility] Internal Medicine 09/21/24 Medical Laboratory Technologist Relationship Specialty Start Date End Date Kate Silva MD [address] [place] [address] PCP - General Internal Medicine 10/28/22 Zuleika Avalos PA-C [address] [facility] [place] [place] [address] Gastroenterology 08/22/22 Gopal Yanez MD [address] [place] [address] Hematology/Oncology 02/07/23 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 APRN.CARBON ROD INSERTER [address] [place] [address] [employer] Internal Medicine 06/07/24 Sher Hollingsworth APRN.ELECTRIC STOVE MECHANIC [address] [place] [address] [employer] Internal Medicine 09/21/24 Medical Laboratory Technologist Relationship Specialty Start Date End Date Kate Silva MD [address] [place] [address] PCP - General Internal Medicine 10/28/22 Zuleika Avalos PA-C [address] [facility] [place] [address] Gastroenterology 08/22/22 Gopal Yanez MD [address] [place] [address] Hematology/Oncology 02/07/23 Sher Hollingsworth APRN.ELECTRIC STOVE MECHANIC [address] [place] [address] [employer] Internal Medicine 09/21/24 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 APRN.CARBON ROD INSERTER [address] [place] [address] [employer] Internal Medicine 11/17/24 Medical Laboratory Technologist Relationship Specialty Start Date End Date Kate Silva MD [address] [place] [address] PCP - General Internal Medicine 10/28/22 Zuleika Avalos PA-C [address] [facility] [place] [address] Gastroenterology 08/22/22 Gopal Yanez MD [address] [place], [place] [address] Hematology/Oncology 02/07/23 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 APRN.CARBON ROD INSERTER [address] [place], [place] [address] [facility] Internal Medicine 06/07/24 Sher Hollingsworth SACK LIFTER.ELECTRIC STOVE MECHANIC [address] [place] [address] [facility] Internal Medicine 09/21/24 Goals (unrecognized section and content) Goals may be documented in a n alternate sectionGoals may be documented in an alternate sectionGoals may be documented in an alternate sectionGoals may be documented in an alternate sectionGoals may be documented in an alternate section PRN Active and Recently Administ ered Medications (unrecognized section and content) Medication Order 07/03/2022 07/04/2022 07/05/2022 fentaNYL 50 mcg/mL injection (SUBLIMAZE) INTRAVENOUS, X (OR/PROCEDURE) PRN, Starting on Fri07/05/22 at 1033, Until 07/06/22 at 0303, Intraprocedure 1033 (Given - Provid er: Keysha Dawn RN) fentaNYL 50 mcg/mL injection (SUBLIMAZE) INTRAVENOUS, X (OR/PROCEDURE) PRN, Starting on Fri07/05/22 at 1045, Until 07/06/22 at 0303, Intraprocedure 1045 (Given - Provid er: Keysha Dawn RN) fentaNYL 50 mcg/mL injection (SUBLIMAZE) INTRAVENOUS, X (OR/PROCEDURE) PRN, Starting on Fri07/05/22 at 1109, Until 07/06/22 at 0303, Intraprocedure 1109 (Given - Provid er: Keysha Dawn RN) gelatin adsorbable topical sponge (GELFOAM) TOPICAL, X (OR/PROCEDURE) PRN, Starting on Fri07/05/22 at 1102, Until 07/06/22 at 0303, Intraprocedure 1102 (Given - Provid er: Mirna Hayes MD - Comment: liver biopsy) lidocaine 10 mg/mL (1 %) injection (XYLOCAINE) OTHER, X (OR/PROCEDURE) PRN, Starting on Fri07/05/22 at 1034, Until 07/06/22 at 0303, Intraprocedure 1034 (Given - Provid er: Keysha Dawn RN) lidocaine 10 mg/mL (1 %) injection (XYLOCAINE) OTHER, X (OR/PROCEDURE) PRN, Starting on Fri07/05/22 at 1047, Until 07/06/22 at 0303, Intraprocedure 1047 (Given - Provid er: Mirna Hayes MD) midazolam (PF) injection (VERSED) INTRAVENOUS, X (OR/PROCEDURE) PRN, Starting on Fri07/05/22 at 1037, Until 07/06/22 at 0303, Intraprocedure 1037 (Given - Provid er: Keyhsa Dawn RN) NaCl 0.9% iv infusion INTRAVENOUS, X (OR/PROCEDURE) CONTINUOUS, Starting on Fri07/05/22 at 1023, Until 07/06/22 at 0303, Intraprocedure 1023 (New Bag/Syring e/Bottle - Provider: Keysha Dawn RN)1105 (Infusion Complete - Provider: Keysha Dawn RN) sodium chloride 0.9 % (flush) (BD POSIFLUSH) INTRAVENOUS, X (OR/PROCEDURE) PRN, Starting on Fri07/05/22 at 1023, Until 07/06/22 at 0303, Intraprocedure 1023 (Given - Provid er: Keysha Dawn RN) FOR RECORDS PERTAINING TO PATIENTS WHO ARE [...] BE BASED ON THE PRIMARY CLINICAL RECORDS. [facility] [employer] [facility]. provides no warranty or guarantee of the accuracy or completeness of information in this document.
== END | disposition home or self-care (01) ==
PROVIDERS: PCP Internal Medicine; Referring Provider Specialist; Visit Provider Specialist
DX: R00.2 Palpitations (principal)
CPT/HCPCS: 93225; 93226

== ENCOUNTER → 2025-04-15 | Outpatient (CLI) | payer MEDICAID, SELFPAY ==
[2025-04-15 12:30] LABS: Hematocrit 40.4 % (37-47); Hemoglobin 14.0 g/dL (12.0-15.0); Mean Corp Hgb Conc 34.7 g/dL (32-36); Mean Corpuscular Volume 89.2 fL (81-99); Mean Platelet Vol. 9.9 fl (6.2-12.0); Platelet Count 472 K/mm3 (150-450); RBC Distribution Width CV 12.2 % (11.6-14.6); RBC Distribution Width SD 39.8 fl (35.1-43.9); Red Blood Count 4.53 M/mm3 (4.2-5.4); White Blood Count 9.0 K/mm3 (4.4-11.0)
[2025-04-15 13:18] LABS: AST(SGOT) 40 U/L (<=31); Alanine Aminotransfer ALT/SGPT 55 U/L (<=34); Albumin, Serum 4.1 g/dL (3.5-5.0); Alkaline Phosphatase 61 U/L (35-104); Anion Gap 12 (5-15); BUN 9 mg/dL (4-19); BUN/Creat Ratio 12.0 RATIO (10-20); Calcium,Total 9.1 mg/dL (7.6-11.0); Carbon Dioxide 22.6 mmol/L (21.0-32.0); Chloride 102 mmol/L (98-108); Globulin 3.4 g/dL (2.2-4.2); Glucose 111 mg/dL (70-99); Iron 133 ug/dL (50-170); Iron Binding Capacity,Total 270 ug/dL (250-450); Iron Binding Capacity,Unsat 137 ug/dL (228-428); Potassium 3.7 mmol/L (3.3-5.1)
== END | disposition home or self-care (01) ==
LOC: VSLAB 12:01
PROVIDERS: PCP Internal Medicine; Visit Provider Counselor Mental Health
DX: F43.12 Post-traumatic stress disorder, chronic (principal); F33.1 Major depressive disorder, recurrent, moderate; F41.9 Anxiety disorder, unspecified
CPT/HCPCS: 36415; 80053; 83036; 83540; 83550; 84443; 85027

== ENCOUNTER 2025-05-20 22:34 | Emergency (ER) | payer MEDICAID, SELFPAY ==
[2025-05-20 22:35] VITALS: BP 136/62; PULSE 105; RESP 18; TEMP 36.2; O2SAT 98; BMI 38.9
--- OUTSIDE RECORDS SUMMARY | 2025-05-20 22:57 | XMS RPT_ITS | CCD ---
Author Organization [facility] Care Team Providers Care Human Resources Partner Name Role Phone JESSICA NOGUERA Unavailable Unavailable [...] MD Primary Care Provider RASTA DUMONT Attending UnavailRASTA Caldwell Admitting Unavailab KATE Shah Primary Care Unavailable Antonio Smalls MD Primary Care Provider Alfonso WARP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, Demi Unavailable Darrick WARP SCOURING VAT TENDER.CRIBBER, Sher Unavailable Darrick WARP SCOURING VAT TENDER.CRIBBER, Sher Unavailable Darrick WARP SCOURING VAT TENDER.CRIBBER, Sher Unavailable Shira MEDRANO, Dr. Kate Chavez Primary Care Provider [phone] Jacquelin GREGORY, Dr. Chaney Emergency Provider Jacquelin GREGORY, Dr. Chaney Attending Provider Francia GREGORY, Dr. Mckeon Emergency Provider DR KATE SILVA MD Primary Care Unavailable [facility] Attending Unavailable Francia GREGORY, Dr. Mckeon Attending Provider Pérez Ren MD Emergency Provider Alfonso WARP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, Demi Unavailable Pérez Ren MD Attending Provider Ungjasmina GREGORY, Dr. Levine Attending Provider Ellen GREGORY, Dr. Levine Referring Provider Ellen GREGORY, Dr. Levine Emergency Provider Miles MEDRANO, Dr. Emery Attending Provider Miles MEDRANO, Dr. Emery Referring Provider [place] WARP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, Demi Unavailable Mike Feldman Attending Unavailable Talampas, Kate D Primary Care Unavailable Radha Gagnon Attending Unavailable Talampas, Kate D Primary Care Unavailable Yuly Aquino Attending Unavailabl e Yuly Aquino Referring Unavailabl e Talampas, Kate D Primary Care Unavailable Pelonur Remus Attending Unavailable Ungur Remus Referring Unavailable Talampas, Kate D Primary Care Unavailable Talampas, Kate D Primary Care Unavailable Pérez Ren Attending Unavailable Yuly Aquino Referring Unavailabl e [place] Attending Unavailable Talampas, Kate D Primary Care Unavailable Mike Feldman Attending Unavailable Talampas, Kate D Primary Care Unavailable Shiv Roper Attending Unavailable Talampas, Kate D Primary Care Unavailable TALAMPAS, KATE D [...] Care Unavailable TALAMPAS, KATE D Referring Unavailable SHER [place]TH Attending Unavailable ARIA RUSSELL Attending Unavailable TALAMPAS, KATE D Primary Care Unavailable TALAMPAS, KATE D Primary Care Unavailable SLEIK, KHALED MELOUD Referring Unavailable SLEIK, KHALED MELOUD Attending Unavailable TALAMPAS, KATE D Primary Care Unavailable TALAMPAS, KATE D Referring Unavailable TALAMPAS, KATE D Primary Care Unavailable SHER HOLL[place]ORTH Attending Unavailable TALAMPAS, KATE D Primary Care Unavailable TALAMPAS, KATE D Referring Unavailable TALAMPAS, KATE D Attending Unavailable TALAMPAS, KATE D Primary Care Unavailable TALAMPAS, KATE D Referring Unavailable TALAMPAS, KATE D Primary Care Unavailable SHER [place]TH Attending Unavailable TALAMPAS, KATE D Primary Care Unavailable AGATA, PAT Referring Unavailable AGATA, PAT Attending Unavailable TALAMPAS, KATE D Primary Care Unavailable TALAMPAS, KATE D Primary Care Unavailable SLEIK, KHALED MELOUD Attending Unavailable TALAMPAS, KATE D Primary Care Unavailable SELF Referring Unavailable TALAMPAS, KATE D Attending Unavailable TALAMPAS, KATE D Primary Care Unavailable TALAMPAS, KATE D Referring Unavailable TALAMPAS, KATE D Attending Unavailable TALAMPAS, KATE D Primary Care Unavailable AGATA, PAT Referring Unavailable GOPAL YANEZ Attending Unavailable TALAMPAS, KATE D Primary Care Unavailable SELF Referring Unavailable TALAMPAS, KATE D Attending Unavailable TALAMPAS, KATE D Primary Care Unavailable TALAMPAS, KATE D Referring Unavailable ESTRELLITA KUMAR Attending Unavailable Medications Current Medications Medication Drug Class(es) Dates Sig (Normalized) Sig (Original) [id number] 200 actuat albuterol 0.09 mg/actuat metered dose inhaler (18 sources) beta2-Adrenergic Agonist Start: 10-20-2024 take 2 [...] tablet by yoel th twice daily for 10 days. Take 1 [...] October 06, 2024 12:00am Start: 05-18-2024 End: 05-19-2025 take 1 capsule by mouth once daily in the morning amphetamine-dextroamphetamine XR (ADDERA LL XR) 30 mg capsule Indications: Attention deficit hyperactivity disorder (ADHD), combined type Take 1 capsule by mouth every morning for 30 days. Patient should start on April 19, 2025. 30 capsule 04/19/2025 05/19/2025 Active Start: 02-14-2024 End: 05-14-2024 take 1 [...] 16, 2023. Take 1 capsule by mo uth [...] Active clobetasol propionate 0.5 mg/ml topical cream (20 sources) Corticosteroid Start: 10-14-2024 clobetasol (TE MOVATE) [...] mg/ml auto-injector (20 sources) GLP-1 Receptor Agonist Start : 11-08 End: 01-03 inject 0.75 mg by subcutaneous injection every week dulaglutide (TRULICITY) 0.75 mg/0.5 mL pen injector Indications: Type 2 diabetes mellitus without complication, without long-term current use of insulin (HCC) , Fatty liver Inject 0.75 mg subcutaneously one time a week. 6 mL 1 01/03/2025 Active Start: 03-19-2024 End: 11-08-2024 Dulaglutide (Dulaglutide 1.5 Mg/0.5 Ml Subcutaneous Pen Injector) 1.5 mg/0.5 mL pen injector Active 1.5 mg SC EVERY WEEK October 06, 2024 12:00am Start: 01-27-2024 End: 03-19-2024 dulaglutide (TRULICITY) 0.75 mg/0.5 mL pen injector Indications: Type 2 diabetes mellitus without complication, without long-term current use of insulin (HCC) , Fatty liver , Obesity, Class III, BMI 40-49.9 (morbid obesity) ([facility]) Inject 0.75 mg subcutaneously one time a week. 4 Each 3 01/27/2024 03/19/2024 Discontinued FLUoxetine 10 mg oral capsule (6 sources) Serotonin Reuptake Inhibitor Start: 12-06-2024 take 1 capsule by mouth once daily FLUoxetine (PROZAC) 10 mg capsule Take 1 capsule by mouth once daily. 90 capsule 12/06/2024 Active 12 hr guaiFENesin 600 mg extended release [...] 10 days. ketoconazole 20 mg/ml medicated shampoo (18 sources) Azole Antifungal Start: 02-09-2025 ketoconazole (NIZORAL) 2 % shampoo Indications: Dandruff , Seborrheic dermatitis Apply to affected area two times a week. 120 mL 1 02/09/2025 Active Start: 10-20-2024 ketoconazole ( NIZORAL) 2 % shampoo Indications: Dandruff , Seborrheic dermatitis Apply to affected area two times a week. 120 mL 1 10/20/2024 Active LORazepam 1 mg oral tablet (9 sources) Benzodiazepine Start: 10-29-2024 End: 11-02-2024 take 1 tablet by mouth every six hours as needed LORazepam (ATIVAN) 1 mg tablet Take 1 mg by mouth every 6 hours as needed. 10/29/2024 11/02/2024 Discontinued Start: 10-29-2024 End: 12-02-2024 take 1 tablet by mouth three times daily as needed for anxiety Lorazepam (Ativan) 1 mg tablet Active 1 mg PO THREE TIMES A DAY as needed for anxiety October 29, 2024 12:00am meclizine hydrochloride 25 mg oral tablet (20 sources) Antiemetic Start: 10-01-2024 take 1 tablet [...] - of each month 10 tablet 11 03/29/2022 06/06/2023 Discontinued Comment on above: Take 1 tablet by yoel th once daily. for the 07-09 of each month Take 1 tablet by yoel th once daily. methylphenidate hydrochloride 20 mg oral tablet (20 sources) Central Nervous System Stimulant Start: 05-18-20 End: 05-19-20 take 1 tablet by mouth every 30 days as needed methylphenidate (RITALIN) 20 mg tablet Indications: Attention deficit hyperactivity disorder (ADHD), combined type Take 1 tablet by mouth as needed for up to 30 days. Take at approx. 3-4 pm. Patient should start on April 19, 2025. 30 tablet 04/19/2025 05/19/2025 Active Start: 12-14-2023 End: 05-14-2024 take 1 [...] 18, 2023. Take 1 tablet by yoel th as needed for up to 30 days. Take at approx. 3-4 pm. Do not start before July 18, 2023. Take 1 tablet by yoel th as needed for up to 30 days. Take at approx. 3-4 pm. Do not start before August 17, 2023. Take 1 tablet by yoel th as needed for up to 30 days. Take at approx. 3-4 pm. Do not start before October 16, 2023. Take 1 tablet by yoel th [...] yoel th twice daily for 7 days. nitrofurantoin, macrocrystals [...] on above: Take 1 capsule by [facility] twice daily with meals for 7 days. norethindrone 0.35 mg oral tablet (20 sources) Start: 024 End: 025 take 1 tablet by mouth once daily Norethindrone, Contraceptive, (SELMA) 0.35 mg tablet Take 1 tablet by mouth once daily. 84 tablet 3 01/26/2024 Active omeprazole 20 mg delayed release oral capsule (20 sources) Proton Pump Inhibitor Start: 025 take 1 capsule by mouth once daily omeprazole (PRILOSEC) 20 mg capsule Indications: Acid indigestion Take 1 capsule by mouth once daily. On empty stomach at least 30 minutes before eating. 90 capsule 1 02/09/2025 Active Start: 06-12-2022 End: 07-18-2024 take 1 capsule by mouth once daily [...] on above: Take 1 capsule by [facility] once daily. ondansetron 4 mg disintegrating oral tablet (20 sources) Serotonin-3 Receptor Antagonist Start: 02-10-20 25 take 1 tablet by mouth every eight hours as needed for nausea ondansetron orally disintegrating (ZOFRAN ODT) 4 mg disintegrating tablet Indications: Migraine without status migrainosus, not intractable, unspecified migraine type Take 1 tablet by mouth every 8 hours as needed for nausea/vomiting. 30 tablet 3 02/09/2025 Active Start: 12-15-2023 End: 11-08-2024 take 1 tablet by mouth every eight [...] ) 28 mg iron- 800 mcg tablet (5 sources) Start: 12-02-2023 Pnv Cmb#95-Ferrous Fumarate-Fa [ Vit No.95-Ferrous Fumarate 28 Mg-Folic Acid 800 Mcg Tablet] ( Vit No.95-Ferrous Fumarate 28 Mg-Folic ) 28 mg iron- 800 mcg tablet Active 1 {tbl} PO DAILY December 02, 2023 12:00am propranolol hydrochloride 20 mg oral tablet (14 sources) beta-Adrenergic Ifrah Start: 11-02-2024 take 1 tablet by mouth three times daily as needed propranolol (INDERAL) 20 mg tablet Indications: Generalized anxiety disorder with panic attacks , Panic attacks , Palpitations Take 1 tablet by mouth three times a day as needed (for heart rate over 100). 90 tablet 2 11/02/2024 Active rizatriptan 10 mg oral tablet (20 sources) Serotonin-1b and Serotonin-1d Receptor Agonist Start: 04-30-2024 End: 12-06-2024 take 1 tablet by mouth every two hours as needed for headache rizatriptan (MAXALT) 10 mg tablet Indications: Migraine without status migrainosus, not intractable, unspecified migraine type Take 1 tablet by mouth as needed for migraine headache (see administration instructions). May repeat dose after 2 hours if needed. Maximum daily dose is 30 mg per day. 18 tablet 3 12/06/2024 Active triamcinolone acetonide 1 mg/ml topical cream (20 sources) Corticosteroid Start: 08-09-2024 triamcinolone acetonide (KENALOG) 0.1 % cream Apply to affected area two times a day as needed. May use for up to 14 days per rash 30 g 08/09/2024 Active venlafaxine 37.5 mg oral tablet (1 source) Serotonin and Norepinephrine Reuptake Inhibitor Start: 04-03-2015 take 37.5 mg by mouth once daily Venlafaxine Active 37.5 MG PO DAILY April 03, 2015 12:00am zaleplon 5 mg oral capsule (1 source) gamma-Aminobutyric Acid A Receptor Agonist Start: 11-08-2022 End: 11-10-2022 take 1 capsule by mouth once daily at bedtime zaleplon (SONATA) 5 mg capsule Indications: ESTEBAN (obstructive sleep apnea) Take 1 capsule by mouth daily at bedtime for 2 doses. 2 capsule 0 11/08/2022 11/10/2022 Active Comment on above: Take 1 capsule by mo ut daily at bedtime for 2 doses. Completed/Discontinued [...] Comment on above: Take 1 tablet by [facility] once daily. ciprofloxacin 3 mg/ml / dexamethasone [...] Comment on above: Take 1 tablet by [facility] twice daily for 7 days. DULoxetine 20 mg delayed release oral capsule (3 sources) Serotonin and Norepinephrine Reuptake Inhibitor Start: End: take 1 capsule by mouth once daily DULoxetine (CYMBALTA) 20 mg capsule Indications: Generalized anxiety disorder with panic attacks Take 1 capsule by mouth once daily. 30 capsule 2 10/26/2024 11/02/2024 Discontinued ergocalciferol 1.25 mg oral capsule (20 sources) Provitamin D2 Compound Start: 023 End: take 1 capsule by mouth every week ergocalciferol 50,000 unit capsule (VITAMIN D2, DRISDOL) Indications: Vitamin D deficiency Take 1 capsule by mouth one time a week. 8 capsule 0 08/09/2022 04/22/2023 Discontinued Comment on above: Take 1 capsule by [facility] one time a week. fluconazole 150 mg oral tablet (20 sources) Azole Antifungal Start: 025 End: fluconazole (DIFLUCAN) 150 mg tablet Take [...] (BREXAFEMME) 150 mg tablet (6 sources) Start: End: take 2 tablets by mouth every twelve hours ibrexafungerp (BREXAFEMME) 150 mg tablet Indications: Chronic infection , Vaginal yeast infection Take 2 tablets (300 mg) by mouth every 12 hours. 4 tablet 05/10/2024 05/31/2024 Discontinued (Cost of medication) Start: 05-10-2024 take 2 tablets by mo [facility] every twelve hours ibrexafungerp (BREXAFEMME) 150 mg [...] tab daily for 3 days with food. Ucbjvobo-Bm-Lss-Fe-FA tab (6 sources) Start: 11-17-2023 End: 12-12-2023 take 1 tablet by mouth once daily Mtqgodml-Rn-Plo-Fe-FA tab Take 1 tablet by mouth once daily. 90 tablet 3 11/17/2023 12/12/2023 Discontinued Start: 11-17-2023 End: 11-16-2024 take 1 tablet by mouth once daily Otkmgwpj-Fb-Sqx-Fe-FA tab Take 1 tablet by mouth once daily. 90 tablet 3 11/17/2023 11/16/2024 Active QUEtiapine 25 mg oral tablet (7 sources) Atypical Antipsychotic Start: 11-02-2024 End: 12-06-2024 take 1-2 tablets by mouth once daily at bedtime QUEtiapine (SEROQUEL) 25 mg tablet Indications: Generalized anxiety disorder with panic attacks , Panic attacks Take 1-2 tablets by mouth daily at bedtime. 60 tablet 2 11/02/2024 12/06/2024 Discontinued 125 ml sodium chloride 9 mg/ml prefilled [...] th twice daily. Take 1 tablet by [facility] once daily. Problems Active Problems Problem Classification Problem Date Documented Da te Episodic/Chronic Abdominal pain (9 sources) Abdominal pain; Translations: [Unspecified abdominal pain] Episodic Allergic reactions (1 source) Eczema; Translations: [...] [Ventricular premature depolarization] Onset: 5 08-30-2024 Chronic Chronic obstructive pulmonary disease and bronchiectasis (1 source) Bronchitis, not specified as acute or chronic; Translations: [Sinobronchitis] Onset: 5 Episodic Diabetes mellitus without complication (20 sources) Type 2 diabetes mellitus without complication; Translations: [Type 2 diabetes mellitus without complications] Onset: 4 01-27-2024 Chronic Diseases of white blood cells (11 sources) Leukocytosis; Translations: [Elevated white blood cell count, unspecified] Onset: 5 Chronic Endometriosis (1 source) Uterine adenomyosis; Translations: [...] fatigue, unspecified] Onset: 3 Chronic Menstrual disorders (10 sources) Irregular periods; Translations: [Irregular menstruation, unspecified] Onset: 5 Chronic Miscellaneous mental health disorders (20 sources) Depersonalization disorder; 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] Onset: 6 12-05-2015 Chronic Mood disorders (20 sources) Depressive disorder; Translations: [Depression] Onset: 4 06-25-2021 Chronic Mycoses (4 sources) Candidiasis of vagina; Translations: [Vaginal yeast infection] 02-18-2024 Episodic Nausea and vomiting (6 sources) Nausea; Translations: [Nausea] Episodic Neoplasms of unspecified nature or uncertain behavior (1 source) Thrombocytosis; Translations: [Thrombocytosis] Onset: 5 Chronic Neoplasms of unspecified nature or uncertain behavior (4 sources) Thrombocytosis; Translations: [Thrombocytosis] Episodic Nutritional deficiencies (1 source) Vitamin D deficiency; Translations: [Vitamin D deficiency, unspecified] Chronic Other aftercare (2 sources) Patient encounter status; Translations: [Other [facility] (current) drug therapy] 01-29-2024 Episodic Other aftercare (1 source) Long-term current use of drug therapy; Translations: [Other [facility] (current) drug therapy] 08-09-2024 Episodic Other circulatory disease (5 sources) Elevated blood-pressure reading without diagnosis of [...] Indigestion; Translations: [Functional dyspepsia] 12-28-2023 Episodic Other disorders of stomach and duodenum (1 source) Functional dyspepsia; Translations: [Acid indigestion] Onset: Episodic Other ear and sense organ disorders [...] unspecified] Onset: Chronic Other female genital disorders (11 sources) Vaginal discharge; Translations: [Other specified noninflammatory [...] (1 source) Seborrhea capitis; Translations: [Dandruff] Onset: 5 Episodic Other inflammatory condition of skin (1 source) Seborrheic dermatitis, unspecified; Translations: [Seborrheic dermatitis] Onset: 5 Episodic Other injuries and conditions [...] classified] Onset: 4 Chronic Other liver diseases (5 sources) Fatty (change of) liver, not elsewhere [...] Onset: 5 Chronic Other nervous system disorders (4 sources) Paresthesia; Translations: [Paresthesia of skin] 10-06-2024 Episodic Other nervous system disorders (3 sources) Numbness and tingling sensation of skin; Translations: [Anesthesia of skin] 10-07-2024 Episodic Other nervous system disorders (1 source) Other disturbances of skin sensation; Translations: [Feels hot] Onset: 5 Episodic Other non-traumatic joint disorders [...] due to excess calories] 07-06-2023 Chronic Other screening for suspected conditions (not mental disorders or infectious disease) (11 sources) Other specified abnormal findings of blood chemistry; Translations: [Other abnormal blood chemistry] Episodic Other upper respiratory disease (1 source) Chronic rhinitis; Translations: [Chronic rhinitis] Chronic Other upper respiratory infections (4 sources) Chronic sinusitis; Translations: [Chronic sinusitis, unspecified] Onset: 5 Chronic Other upper respiratory infections (7 sources) Sore throat symptom; Translations: [Acute pharyngitis, unspecified] Episodic Otitis media and related conditions (5 sources) Dysfunction of bilateral eustachian tubes; Translations: [Other specified disorders of Eustachian tube, bilateral] Episodic Residual codes; unclassified (8 sources) Obstructive sleep apnea syndrome; Translations: [Obstructive sleep apnea (adult) (pediatric)] Chronic Residual codes; unclassified (2 sources) Obstructive sleep apnea (adult) (pediatric); Translations: [ESTEBAN on CPAP] Onset: 5 Chronic Residual codes; unclassified (1 source) Nicotine-filled electronic cigarette user; Translations: [Tobacco use] 03-19-2024 Episodic Spondylosis; intervertebral disc disorders; other back problems (1 source) Neck pain; Translations: [Cervicalgia] 07-06-2023 Episodic Sprains and strains (14 sources) Sprain of ankle; Translations: [Sprain of unspecified ligament of right ankle, initial encounter] 02-03-2022 Episodic Substance-related disorders (1 source) Nicotine dependence; Translations: [Nicotine dependence, unspecified, uncomplicated] 09-16-2023 Chronic Superficial injury; contusion (7 sources) Contusion of left foot, initial encounter; Translations: [Contusion of right hand] Onset: 1 08-11-2023 Episodic Unclassified (1 source) Unknown / UNK(Unknown) Onset: 7 Unclassified (1 source) Obesity, Class III, BMI 40-49.9 (morbid obesity) (HCC); Translations: [Obesity, Class III, BMI 40-49.9 (morbid obesity) (HCC)] Onset: 3 Unclassified (1 source) Obesity, Class III, BMI 40-49.9 (morbid obesity); Translations: [Obesity, Class III, BMI 40-49.9 (morbid obesity)] Onset: 3 Urinary tract infections (1 source) Urinary tract infectious disease; Translations: [Urinary tract infection, site not specified] Episodic Past or Other Problems Problem Classification Problem Date Documented Da te Episodic/Chronic Acute bronchitis (2 sources) Acute bronchitis; Translations: [Acute bronchitis, unspecified] Onset: 10-20-2024 10-20-2024 Episodic Anxiety disorders (20 sources) Outbursts of anger; Translations: [Irritability and anger] Onset: 10-12-2012 10-12-2012 Episodic Cardiac dysrhythmias (12 sources) Palpitations; Translations: [Palpitations] Onset: 12-06-2024 10-25-2024 Episodic Conditions associated with dizziness or vertigo (16 sources) Vertigo; Translations: [Dizziness and giddiness] Onset: 10-11-2024 10-01-2024 Episodic Crushing injury or internal injury (1 source) Crushing injury of left foot, initial encounter; Translations: [Crushing injury of left foot, initial encounter] Onset: 04-19-2021 Episodic Malaise and fatigue (14 sources) Malaise and fatigue; Translations: [Other malaise] Onset: 10-11-2022 Episodic Nonspecific chest pain (9 sources) Acute chest pain; Translations: [Chest pain, unspecified] Onset: 10-31-2022 Episodic Other aftercare (1 source) Other termite inspector (current) drug therapy; Translations: [Encounter for long-term current use of medication] Onset: 08-09-2024 Episodic Other connective tissue disease (1 source) Pain in left foot; Translations: [Pain in left foot] Onset: 04-18-2021 Episodic Other connective tissue disease (20 sources) Pain in right foot; Translations: [Pain in right foot] Onset: 03-12-2022 Resolved: 11-08-2024 Episodic Other connective tissue disease (1 source) Myalgia, unspecified site; Translations: [Myalgia] Onset: 08-09-2024 Episodic Other inflammatory condition of skin (1 source) Pruritus vulvae; Translations: [Vulvar itching] Onset: 10-11-2024 Episodic Other nervous system disorders (1 source) Anesthesia of skin; Translations: [Numbness and tingling] Onset: 10-26-2024 Episodic Other nervous system disorders (1 source) Paresthesia of skin; Translations: [Numbness and tingling] Onset: 10-26-2024 Episodic Other nutritional; endocrine; and metabolic disorders [...] age] Onset: 04-13-2019 Resolved: 12-15-2023 04-13-2019 Episodic Residual codes; unclassified (20 sources) Not up to date with immunizations; Translations: [Immunization not carried out for unspecified reason] Onset: 11-19-2012 Resolved: 01-23-2016 01-23-2016 Episodic Unclassified (1 source) Marfan's syndrome, unspecified Onset: 04-29-2017 Viral infection (20 sources) COVID-19; Translations: [Other specified viral infection] Onset: 06-25-2008 Resolved: 10-08-2011 07-04-2020 Episodic Results Test Name Value Interpretation Reference Range Facility CNOVon 04-25-2025 CNOV Office Visit ([facility] ) ----- KATIE FORDE ([id number]) 2000 F Date Time Provider Department 04/25/25 8:40 AM SANTI MCALLISTER During your visit today, we recorded the following information about you: Pulse Respiration Blood pressure Weight 99/minute 14/minute 110/66 132 kg Height 1.829 m Santi Mcallister MD 04/25/2025 9:52 AM Signed Santi Mcallister MD General Cardiology [address] [place] [address] [phone] Chief Complaint Patient presents with: Recheck: 6 month follow up- c/o palpitations HISTORY OF PRESENT ILLNESS: Miss Forde is a 24-year-old female with a history of Marfan syndrome, presenting for evaluation and management of palpitations. The patient reports experiencing daily palpitations for the past two months, which are more noticeable when lying down. She describes the sensation as feeling like her heart stops beating at times. She has not taken any medication for these symptoms. She was diagnosed with severe anxiety and was prescribed propranolol for panic attacks but has not used it. She denies taking any supplements or vitamins. A 48-hour Holter monitor in 11/2024 showed a few supraventricular and ventricular ectopics, but no major arrhythmias, with a burden of 0.2%. She has a history of bilateral lens dislocation with subsequent lens replacement. An echocardiogram in 2022 showed the mid-ascending aorta measuring 3.2 cm and the distal ascending aorta measuring 2.[address] angiogram with contrast on 10/31/2022 demonstrated normal aortic size with no pathology. Measurements included the sinus of Valsalva at 3.8 cm, mid-ascending aorta at 2.7 cm, proximal descending aorta at 2.2 cm, and diaphragmatic level at 2.0 cm. She reports vaping and has not discontinued this habit. Cardiac Risk Factors age (male over 45, female over 55), hyperlipidemia, hypertension, family history of CAD PAST MEDICAL HISTORY [...] Grandfather pace maker No Ocular Disease Other SOCIAL HISTORY[1] ALLERGIES No Known Allergies Medications: Current Outpatient Medications Medication Sig Dispense Refill amphetamine-dextroampheta mine XR (ADDERALL XR) 30 mg capsule Take 1 capsule by mouth every morning for 30 days. 30 capsule 0 methylphenidate (RITALIN) 20 mg tablet Take 1 tablet by mouth as needed for up to 30 days. Take at approx. 3-4 pm. 30 tablet 0 benzonatate (TESSALON PERLE) 100 mg capsule Take 1 capsule by mouth three times a day as needed. 21 capsule 0 albuterol HFA (PROVENTIL HFA, VENTOLIN HFA) 90 mcg/actuation inhaler Inhale 2 puffs as instructed every 4 hours as needed for wheezing/shortness of breath. 6.7 g 0 omeprazole (PRILOSEC) 20 mg capsule Take 1 capsule by mouth once daily. On empty stomach at least 30 minutes before eating. 90 capsule 1 ondansetron orally disintegrating (ZOFRAN ODT) 4 mg disintegrating tablet Take 1 tablet by mouth every 8 hours as needed for nausea/vomiting. 30 tablet 3 ketoconazole (NIZORAL) 2 % shampoo Apply to affected area two times a week. 120 mL 1 blood sugar diagnostic (BLOOD GLUCOSE TEST) test strip Test blood sugar(s) one times daily. Dx: Type 2 DM - Controlled E11.9 Insulin: No 50 strip 11 methylphenidate (RITALIN) 20 mg tablet Take 1 tablet by mouth as needed for up to 30 days. Take at approx. 3-4 pm. Patient should start on March 20, 2025. 30 tablet 0 methylphenidate (RITALIN) 20 mg tablet Take 1 tablet by mouth as needed for up to 30 days. Take at approx. 3-4 pm. Patient should start on April 19, 2025. 30 tablet 0 amphetamine-dextroampheta mine XR (ADDERALL XR) 30 mg capsule Take 1 capsule by mouth every morning for 30 days. Patient should start on March 20, 2025. 30 capsule 0 amphetamine-dextroampheta mine XR (ADDERALL XR) 30 mg capsule Take 1 capsule by mouth every morning for 30 days. Patient should start on April 19, 2025. 30 capsule 0 dulaglutide (TRULICITY) 0.75 mg/0.5 mL pen injector Inject 0.75 mg subcutaneously one time a week. 6 mL 1 FLUoxetine (PROZAC) 10 mg capsule (more content not included)... Normal [facility] CBC-Complete Blood Cnt No Di ffon 04-15-2025 Erythrocyte distribution width (RBC) [Ratio] 12.2 % Normal 11.6-14.6 [facility] Comment on above: Performed By: #### L 501.9985, L100.0500, L503.6030, L501.9520, L500.4050 ####[facility] [address] [place], [place], [id number] Hematocrit (Bld) [Volume fraction] 40.4 % Normal 37-47 [facility] Comment on above: Performed By: #### L 501.9985, L100.0500, L503.6030, L501.9520, L500.4050 ####[facility] [address] [place], [address] Hemoglobin (Bld) [Mass/Vol] 14.0 g/dL Normal 12.0-15.0 [facility] Comment on above: Performed By: #### L 501.9985, L100.0500, L503.6030, L501.9520, L500.4050 ####[facility] [address] [place], [address] MCH (RBC) [Entitic mass] 30.9 pg Normal 27.0-32.0 [facility] Comment on above: Performed By: #### L 501.9985, L100.0500, L503.6030, L501.9520, L500.4050 ####[facility] [address] [place], [address] MCHC (RBC) [Mass/Vol] 34.7 g/dL Normal 32-36 [facility] Comment on above: Performed By: #### L 501.9985, L100.0500, L503.6030, L501.9520, L500.4050 ####[facility] [address] [place], [address] MCV (RBC) [Entitic vol] 89.2 fL Normal 81-99 [facility] Comment on above: Performed By: #### L 501.9985, L100.0500, L503.6030, L501.9520, L500.4050 ####[facility] [address] [place], [address] Platelet mean volume (Bld) [Entitic vol] 9.9 fL Normal 6.2-12.0 [facility] Comment on above: Performed By: #### L 501.9985, L100.0500, L503.6030, L501.9520, L500.4050 ####[facility] [address] [place], [address] Platelets (Bld) [#/Vol] 472 10*3/uL High 150-450 [facility] Comment on above: Performed By: #### L 501.9985, L100.0500, L503.6030, L501.9520, L500.4050 ####[facility] [address] [place], [address] RBC (Bld) [#/Vol] 4.53 10*6/uL Normal 4.2-5.4 [facility] Comment on above: Performed By: #### L 501.9985, L100.0500, L503.6030, L501.9520, L500.4050 ####[facility] [address] [place], [address] RDW SD 39.8 fl Normal 35.1-43.9 [facility] Comment on above: Performed By: #### L 501.9985, L100.0500, L503.6030, L501.9520, L500.4050 ####[facility] [address] [place], [address] WBC (Bld) [#/Vol] 9.0 10*3/uL Normal 4.4-11.0 [facility] Comment on above: Performed By: #### L 501.9985, L100.0500, L503.6030, L501.9520, L500.4050 ####[facility] [address] [place], [address] Comprehensive Metabolic [facility] 04-15-2025 Albumin [Mass/Vol] 4.1 g/dL Normal 3.5-5.0 [facility] Comment on above: Performed By: #### L 501.9985, L100.0500, L503.6030, L501.9520, L500.4050 ####[facility] [address] [place], [address] Albumin/Globulin [Mass ratio] 1.2 {ratio} Normal 0.9-2.4 [facility] Comment on above: Performed By: #### L 501.9985, L100.0500, L503.6030, L501.9520, L500.4050 ####[facility] [address] [place], [address] ALK PHOS 61 U/L Normal 35-104 [facility] Comment on above: Performed By: #### L 501.9985, L100.0500, L503.6030, L501.9520, L500.4050 ####[facility] [address] [place], [address] ALT [Catalytic activity/Vol] 55 U/L High <=34 [facility] Comment on above: Performed By: #### L 501.9985, L100.0500, L503.6030, L501.9520, L500.4050 ####[facility] [address] [place], [address] AST [Catalytic activity/Vol] 40 U/L High <=31 [facility] Comment on above: Performed By: #### L 501.9985, L100.0500, L503.6030, L501.9520, L500.4050 ####[facility] [address] [place], [address] Bilirubin [Mass/Vol] 0.49 mg/dL Normal 0.00-1.30 [facility] Comment on above: Performed By: #### L 501.9985, L100.0500, L503.6030, L501.9520, L500.4050 ####[facility] [address] [place], [address] BUN/CRE 12.0 RATIO Normal 10-20 [facility] Comment on above: Performed By: #### L 501.9985, L100.0500, L503.6030, L501.9520, L500.4050 ####[facility] [address] [place], [address] Calcium [Mass/Vol] 9.1 mg/dL Normal 7.6-11.0 [facility] Comment on above: Performed By: #### L 501.9985, L100.0500, L503.6030, L501.9520, L500.4050 ####[facility] [address] [place], [address] Chloride [Moles/Vol] 102 mmol/L Normal 98-108 [facility] Comment on above: Performed By: #### L 501.9985, L100.0500, L503.6030, L501.9520, L500.4050 ####[facility] [address] [place], [address] CO2 [Moles/Vol] 22.6 mmol/L Normal 21.0-32.0 [facility] Comment on above: Performed By: #### L 501.9985, L100.0500, L503.6030, L501.9520, L500.4050 ####[facility] [address] [place], [address] Creatinine [Mass/Vol] 0.78 mg/dL Normal 0.70-1.20 [facility] Comment on above: Performed By: #### L 501.9985, L100.0500, L503.6030, L501.9520, L500.4050 ####[facility] [address] [place], [address] GAP 12 Normal 5-15 [facility] Comment on above: Performed By: #### L 501.9985, L100.0500, L503.6030, L501.9520, L500.4050 ####[facility] [address] [place], [address] GFR/1.73 sq M.predicted among non-blacks MDRD (S/P/Bld) [Vol rate/Area] 107 mL/min/{1.73_m2} Normal >60 [facility] Comment on above: Result Comment: mL/m in/1.73m2 CKD-EPI Creatinine Equation (2020) Performed By: #### L 501.9985, L100.0500, L503.6030, L501.9520, L500.4050 ####[facility] [address] [place], [address] Globulin (S) [Mass/Vol] 3.4 g/dL Normal 2.2-4.2 [facility] Comment on above: Performed By: #### L 501.9985, L100.0500, L503.6030, L501.9520, L500.4050 ####[facility] [address] [place], [address] Glucose [Mass/Vol] 111 mg/dL High 70-99 [facility] Comment on above: Performed By: #### L 501.9985, L100.0500, L503.6030, L501.9520, L500.4050 ####[facility] [address] [place], [address] Potassium [Moles/Vol] 3.7 mmol/L Normal 3.3-5.1 [facility] Comment on above: Performed By: #### L 501.9985, L100.0500, L503.6030, L501.9520, L500.4050 ####[facility] [address] [place], [address] Sodium [Moles/Vol] 137 mmol/L Normal 133-145 [facility] Comment on above: Performed By: #### L 501.9985, L100.0500, L503.6030, L501.9520, L500.4050 ####[facility] [address] [place], [address] T PROT 7.5 g/dL Normal 5.9-8.4 [facility] Comment on above: Performed By: #### L 501.9985, L100.0500, L503.6030, L501.9520, L500.4050 ####[facility] [address] [place], [address] Urea nitrogen [Mass/Vol] 9 mg/dL Normal 4-19 [facility] Comment on above: Performed By: #### L 501.9985, L100.0500, L503.6030, L501.9520, L500.4050 ####[facility] [address] [place], [address] Hemoglobin A1con 04-15-2025 HbA1c (Bld) [Mass fraction] 5.2 % Normal <=5.6 [facility] Comment on above: Result Comment: Norm al < 5.7 % Prediabetic 5.7 - 6.4 % Diabetic >or= 6.5 % Please note range changes. Performed By: #### L 501.9985, L100.0500, L503.6030, L501.9520, L500.4050 ####[facility] [address] [place], [address] Iron+Iron Binding Capacityon 04-15-2025 Iron [Mass/Vol] 133 ug/dL Normal 50-170 [facility] Comment on above: Performed By: #### L 501.9985, L100.0500, L503.6030, L501.9520, L500.4050 ####[facility] [address] [place], [address] IRON SATURATION 49.3 Normal 13-59 [facility] Comment on above: Performed By: #### L 501.9985, L100.0500, L503.6030, L501.9520, L500.4050 ####[facility] [address] [place], [address] TIBC 270 ug/dL Normal 250-450 [facility] Comment on above: Performed By: #### L 501.9985, L100.0500, L503.6030, L501.9520, L500.4050 ####[facility] [address] [place], [address] UIBC 137 ug/dL Low 228-428 [facility] Comment on above: Performed By: #### L 501.9985, L100.0500, L503.6030, L501.9520, L500.4050 ####[facility] [address] [place], [address] Thyroid Stim Hormone (TSH)on 04-15-2025 TSH 0.772 uIU/mL Normal 0.300-4.200 [facility] Comment on above: Performed By: #### L 501.9985, L100.0500, L503.6030, L501.9520, L500.4050 ####[facility] [address] [place], [address] CNOVon 04-02-2025 CNOV Office Visit (WOMITCH) ----- KATIE FORDE ([id number]) 2000 F Date Time Provider Department 04/02/25 1:45 PM ARIA RUSSELL During your visit today, we recorded the following information about you: Temperature Pulse Respiration Blood pressure 98.5 degrees 94/minute 18/minute 112/80 Weight 130.4 kg Aria Russell, ADITYA 04/02/2025 1:57 PM Signed [facility] Leslie Gupta Jonathan is a 24 year old female. Patient presents with: Cough: Cough, congestion, sinus, SOTO and chills x 1 week HPI The patient is a 24-year-old female presenting with dyspnea, diaphoresis, cough, and nasal congestion. Dyspnea: - Dyspnea x1 week. - Notable during a 10-minute shower, requiring her to exit due to difficulty breathing. - Denies history of asthma or other pulmonary conditions. - She does vape Diaphoresis: - Reports feeling hot with a cold body sensation, even in air-conditioned environments. - Took temp a few times, no fever. Cough: - Cough x1 week. Mostly dry, chest feels congested. - Describes a weird burning chest pain with coughing. Nasal Congestion: - Nasal congestion x1 week. - Associated with sinus headaches and facial pressure. - Eyes have been burning since onset of illness. - Using generic Sudafed with no relief. PAST MEDICAL HISTORY Diagnosis Date ADHD (attention [...] ALLERGIES Patient has no known allergies. MEDICATIONS omeprazole (PRILOSEC) 20 mg capsule Take 1 capsule by mouth once daily. On empty stomach at least 30 minutes before eating. ondansetron orally disintegrating (ZOFRAN ODT) 4 mg disintegrating tablet Take 1 tablet by mouth every 8 hours as needed for nausea/vomiting. ketoconazole (NIZORAL) 2 % shampoo Apply to affected area two times a week. blood sugar diagnostic (BLOOD GLUCOSE TEST) test strip Test blood sugar(s) one times daily. Dx: Type 2 DM - Controlled E11.9 Insulin: No amphetamine-dextroampheta mine XR (ADDERALL XR) 30 mg capsule Take 1 capsule by mouth every morning for 30 days. Patient should start on February 18, 2025. methylphenidate (RITALIN) 20 mg tablet Take 1 tablet by mouth as needed for up to 30 days. Take at approx. 3-4 pm. Patient should start on February 18, 2025. methylphenidate (RITALIN) 20 mg tablet Take 1 tablet by mouth as needed for up to 30 days. Take at approx. 3-4 pm. Patient should start on March 20, 2025. [START ON 04/19/2025] methylphenidate (RITALIN) 20 mg tablet Take 1 tablet by mouth as needed for up to 30 days. Take at approx. 3-4 pm. Patient should start on April 19, 2025. amphetamine-dextroampheta mine XR (ADDERALL XR) 30 mg capsule Take 1 capsule by mouth every morning for 30 days. Patient should start on March 20, 2025. [START ON 04/19/2025] amphetamine-dextroampheta mine XR (ADDERALL XR) 30 mg capsule Take 1 capsule by mouth every morning for 30 days. Patient should start on April 19, 2025. dulaglutide (TRULICITY) 0.75 mg/0.5 mL pen injector Inject 0.75 mg subcutaneously one time a week. FLUoxetine (PROZAC) 10 mg capsule Take 1 capsule by mouth once daily. rizatriptan (MAXALT) 10 mg tablet Take 1 tablet by mouth as needed for migraine headache (see administration instructions). May repeat dose after 2 hours if needed. Maximum daily dose is 30 mg per day. CPAP/BIPAP/OTHER Type .CPAPSettings into a note to see current settings/supplies/DME information. propranolol (INDERAL) 20 mg tablet Take 1 tablet by mouth three times a day as needed (for heart rate over 100). amphetamine-dextroampheta mine XR (ADDERALL XR) 30 mg [...] Patient should start on December 19, 2024. amphetamine-dextroampheta mine XR (ADDERALL XR) [...] times a day as needed (for dizziness.vertigo.). triamcinolone acetonide (KENALOG) (more content not included)... Normal [facility] CBC W Auto Differential pane l (Bld)on 02-18-2025 Basophils (Bld) [#/Vol] 0.09 10*3/uL Normal <0.11 [facility] Comment on above: Order Comment: Speci men Type: BLOOD SPECIMENOrdering Facility: [facility] Address: [address] [place] [address] Performed By: #### 5 7021-8, 4536-7 ####[facility] LABIA [id number] [place] [address] [place] Basophils/100 WBC (Bld) 1.1 % Normal [facility] Comment on above: Order Comment: Speci men Type: BLOOD SPECIMENOrdering Facility: [facility] Address: [address] [place] [address] Performed By: #### 5 7021-8, 7 ####[facility] LABIA [id number] [place] [address] [place] Differential cell count method Nom (Bld) Auto Normal [facility] Comment on above: Order Comment: Speci men Type: BLOOD SPECIMENOrdering Facility: [facility] Address: [address] [place] [address] Performed By: #### 5 7021-8, 4536-7 ####[facility] LABIA [id number] [place] [address] [place] Eosinophils (Bld) [#/Vol] 0.07 10*3/uL Normal <0.46 [facility] Comment on above: Order Comment: Speci men Type: BLOOD SPECIMENOrdering Facility: [facility] Address: [address] [place] [address] Performed By: #### 5 7021-8, 4536-7 ####[facility] LABCLIA [id number] [place] [address] [place] Eosinophils/100 WBC (Bld) 0.9 % Normal [facility] Comment on above: Order Comment: Speci men Type: BLOOD SPECIMENOrdering Facility: [facility] Address: [address] [place] [address] Performed By: #### 5 7021-8, 4536-7 ####[facility] LABCLIA [id number] [place] [address] [place] Erythrocyte distribution width (RBC) [Ratio] 12.2 % Normal 11.5-15.0 [facility] Comment on above: Order Comment: Speci men Type: BLOOD SPECIMENOrdering Facility: [facility] Address: [address] [place] [address] Performed By: #### 5 7021-8, 7 ####[facility] LABCLIA [id number] [place] [address] [place] Hematocrit (Bld) [Volume fraction] 41.7 % Normal 36.0-46.0 [facility] Comment on above: Order Comment: Speci men Type: BLOOD SPECIMENOrdering Facility: [facility] Address: [address] [place] [address] Performed By: #### 5 7021-8, 4536-7 ####[facility] LABCLIA [id number] [place] [id number] [place] Hemoglobin (Bld) [Mass/Vol] 14.4 g/dL Normal 11.5-15.5 [facility] Comment on above: Order Comment: Speci men Type: BLOOD SPECIMENOrdering Facility: [facility] Address: [address] [place] [address] Performed By: #### 5 7021-8, 4536-7 ####[facility] LABCLIA [id number] [place] [address] [place] Immature granulocytes (Bld) [#/Vol] 0.03 10*3/uL Normal <0.10 [facility] Comment on above: Order Comment: Speci men Type: BLOOD SPECIMENOrdering Facility: [facility] Address: [address] [place] [address] Performed By: #### 5 7021-8, 4537-7 ####[facility] LABCLIA [id number] [address] [place] Immature granulocytes/100 WBC (Bld) 0.4 % Normal [facility] Comment on above: Order Comment: Speci men Type: BLOOD SPECIMENOrdering Facility: [facility] Address: [address] [place] [address] Performed By: #### 5 7021-8, 4537-7 ####[facility] LABCLIA [id number] [place] [address] [place] Lymphocytes (Bld) [#/Vol] 2.40 10*3/uL Normal 1.00-4.00 [facility] Comment on above: Order Comment: Speci men Type: BLOOD SPECIMENOrdering Facility: [facility] Address: [address] [place] [address] Performed By: #### 5 7021-8, 4537-7 ####[facility] LABCLIA [id number] [place] [address] [place] Lymphocytes/100 WBC (Bld) 29.2 % Normal [facility] Comment on above: Order Comment: Speci men Type: BLOOD SPECIMENOrdering Facility: [facility] Address: [address] [place] [address] Performed By: #### 5 7021-8, 4537-7 ####[facility] LABCLIA [id number] [place] [address] [place] MCH (RBC) [Entitic mass] 31.1 pg Normal 26.0-34.0 [facility] Comment on above: Order Comment: Speci men Type: BLOOD SPECIMENOrdering Facility: [facility] Address: [address] [place] [address] Performed By: #### 5 7021-8, 4536-7 ####[facility] LABCLIA [id number] [place] [address] [place] MCHC (RBC) [Mass/Vol] 34.5 g/dL Normal 30.5-36.0 [facility] Comment on above: Order Comment: Speci men Type: BLOOD SPECIMENOrdering Facility: [facility] Address: [address] [place] [address] Performed By: #### 5 7021-8, 4536-7 ####[facility] LABCLIA [id number] [place] [address] [place] MCV (RBC) [Entitic vol] 90.1 fL Normal 80.0-100.0 [facility] Comment on above: Order Comment: Speci men Type: BLOOD SPECIMENOrdering Facility: [facility] Address: [address] [place] [address] Performed By: #### 5 7021-8, 7 ####[facility] LABCLIA [id number] [place] [address] [place] Monocytes (Bld) [#/Vol] 0.46 10*3/uL Normal <0.87 [facility] Comment on above: Order Comment: Speci men Type: BLOOD SPECIMENOrdering Facility: [facility] Address: [address] [place] [address] Performed By: #### 5 7021-8, 7 ####[facility] LABCLIA [id number] [place] [address] [place] Monocytes/100 WBC (Bld) 5.6 % Normal [facility] Comment on above: Order Comment: Speci men Type: BLOOD SPECIMENOrdering Facility: [facility] Address: [address] [place] [address] Performed By: #### 5 7021-8, 7 ####[facility] LABCLIA [id number] [place] [address] [place] Neutrophils (Bld) [#/Vol] 5.17 10*3/uL Normal 1.45-7.50 [facility] Comment on above: Order Comment: Speci men Type: BLOOD SPECIMENOrdering Facility: [facility] Address: [address] [place] [address] Performed By: #### 5 7021-8, 7 ####[facility] LABIA [id number] [place] [address] [place] Neutrophils/100 WBC (Bld) 62.8 % Normal [facility] Comment on above: Order Comment: Speci men Type: BLOOD SPECIMENOrdering Facility: [facility] Address: [address] [place] [address] Performed By: #### 5 7021-8, 7 ####[facility] LABIA [id number] [place] [address] [place] Nucleated RBC (Bld) [#/Vol] 10*3/uL Normal <0.01 [facility] Comment on above: Order Comment: Speci men Type: BLOOD SPECIMENOrdering Facility: [facility] Address: [address] [place] [address] Performed By: #### 5 7021-8, 4536-12 ####[facility] LABIA [id number] [place] [address] [place] Nucleated RBC/100 WBC (Bld) [Ratio] 0.0 /100 WBC Normal [facility] Comment on above: Order Comment: Speci men Type: BLOOD SPECIMENOrdering Facility: [facility] Address: [address] [place] [address] Performed By: #### 5 7021-8, 4536-12 ####[facility] LABCLIA [id number] [address] [address] [place] Platelet mean volume (Bld) [Entitic vol] 9.9 fL Normal 9.0-12.7 [facility] Comment on above: Order Comment: Speci men Type: BLOOD SPECIMENOrdering Facility: [facility] Address: [address] [place] [address] Performed By: #### 5 7021-8, 4536-7 ####[facility] LABIA [id number] [place] [id number] [place] Platelets (Bld) [#/Vol] 508 10*3/uL High 150-400 [facility] Comment on above: Order Comment: Speci men Type: BLOOD SPECIMENOrdering Facility: [facility] Address: [address] [place] [address] Performed By: #### 5 7021-8, 4536-7 ####[facility] LABIA [id number] [place] [id number] [place] RBC (Bld) [#/Vol] 4.63 10*6/uL Normal 3.90-5.20 [facility] Comment on above: Order Comment: Speci men Type: BLOOD SPECIMENOrdering Facility: [facility] Address: [address] [place] [address] Performed By: #### 5 7021-8, 4536-7 ####[facility] LABIA [id number] [place] [id number] [place] WBC (Bld) [#/Vol] 8.22 10*3/uL Normal 3.70-11.00 [facility] Comment on above: Order Comment: Speci men Type: BLOOD SPECIMENOrdering Facility: [facility] Address: [address] [place] [address] Performed By: #### 5 7021-8, 4536-7 ####[facility] LABCLIA [id number] [facility] [address] [place] [address] [place] CRP SerPl-mCncon 02-18-2025 CRP [Mass/Vol] 0.8 mg/dL Normal <0.9 [facility] Comment on above: Order Comment: Speci men Type: BLOOD SPECIMENOrdering Facility: [facility] Address: [address] [place] [address] Performed By: #### 2 276-4, 3016-3, 1988- ####[facility] LABCLIA [id number] [address] [place] [address] [place] Comprehensive metabolic 2000 panelon 02-18-2025 Albumin [Mass/Vol] 4.3 g/dL Normal 3.9-4.9 [facility] Comment on above: Order Comment: Speci men Type: BLOOD SPECIMENOrdering Facility: [facility] Address: [address] [place] [address] Performed By: #### 3 051-0, 3024-7, 71730-7, 09128-9 ####[facility] LABCLIA [id number] [address] [address] [place] ALP [Catalytic activity/Vol] 63 U/L Normal 34-123 [facility] Comment on above: Order Comment: Speci men Type: BLOOD SPECIMENOrdering Facility: [facility] Address: [address] [place] [address] Performed By: #### 3 051-0, 3024-7, 81775-9, 17769-8 ####[facility] LABCLIA [id number] [address] [place] [address] [place] ALT [Catalytic activity/Vol] 49 U/L High 7-38 [facility] Comment on above: Order Comment: Speci men Type: BLOOD SPECIMENOrdering Facility: [facility] Address: [address] [place] [address] Performed By: #### 3 051-0, 3024-7, 03917-0, ####[facility] LABCLIA [id number] [address] [address] [place] Anion gap [Moles/Vol] 16 mmol/L High 8-15 [facility] Comment on above: Order Comment: Speci men Type: BLOOD SPECIMENOrdering Facility: [facility] Address: [address] [place], [place] [address] Performed By: #### 3 051-0, 3023-7, 51945-8, ####[facility] LABCLIA [id number] [address] [address] [place] AST [Catalytic activity/Vol] 41 U/L High 13-35 [facility] Comment on above: Order Comment: Speci men Type: BLOOD SPECIMENOrdering Facility: [facility] Address: [address] [place], [place] [address] Performed By: #### 3 051-0, 302-7, 08122-1, ####[facility] LABCLIA [id number] [address] [address] [place] Bilirubin [Mass/Vol] 0.5 mg/dL Normal 0.2-1.3 [facility] Comment on above: Order Comment: Speci men Type: BLOOD SPECIMENOrdering Facility: [facility] Address: [address] [place] [address] Performed By: #### 3 051-0, 3023-7, 20746-6, ####[facility] LABCLIA [id number] [address] [address] [place] Calcium [Mass/Vol] 9.3 mg/dL Normal 8.5-10.2 [facility] Comment on above: Order Comment: Speci men Type: BLOOD SPECIMENOrdering Facility: [facility] Address: [address] [place] [address] Performed By: #### 3 051-0, 302-7, 59649-5, 41188-6 ####[facility] LABCLIA [id number] [address] [address] [place] Chloride [Moles/Vol] 102 mmol/L Normal 98-107 [facility] Comment on above: Order Comment: Speci men Type: BLOOD SPECIMENOrdering Facility: [facility] Address: [address] [place] [address] Performed By: #### 3 051-0, 302-7, 52351-3, 71061-7 ####[facility] LABIA [id number] [place] [address] [place] CO2 [Moles/Vol] 19 mmol/L Low 22-30 [facility] Comment on above: Order Comment: Speci men Type: BLOOD SPECIMENOrdering Facility: [facility] Address: [address] [place] [address] Performed By: #### 3 051-0, 3024-7, 92799-6, 76583-4 ####[facility] LABIA [id number] [place] [address] [place] Creatinine [Mass/Vol] 0.74 mg/dL Normal 0.58-0.96 [facility] Comment on above: Order Comment: Speci men Type: BLOOD SPECIMENOrdering Facility: [facility] Address: [address] [place] [address] Performed By: #### 3 051-0, 302-7, 38287-3, 88163-4 ####[facility] LABIA [id number] [place] [id number] [place] eGFRcr SerPlBld CKD-EPI 2020 115 mL/min/1.73m??? Normal >=60 [facility] Comment on above: Order Comment: Speci men Type: BLOOD SPECIMENOrdering Facility: [facility] Address: [address] [place] [address] Result Comment: Shantal mated Glomerular Filtration Rate [...] reflect actual GFR. Performed By: #### 3 051-0, 4-7, 27191-2, 23887-3 ####[facility] LABIA [id number] [address] [address] [place] Glucose [Mass/Vol] 88 mg/dL Normal 74-99 [facility] Comment on above: Order Comment: Lore buitrago Type: BLOOD SPECIMENOrdering Facility: [facility] Address: [address] [place] [address] Result Comment: The [place] Diabetes Association (ADA) provides guidance for cutoff [...] Standards of Medical Care in Diabetes 2016, [place] [employer] Association. Diabetes Care. 2016.39(Suppl 1). Performed By: #### 3 051-0, 3024-7, 53364-4, 01952-0 ####[facility] LABIA [id number] [address] [address] [place] Potassium [Moles/Vol] 4.5 mmol/L Normal 3.7-5.1 [facility] Comment on above: Order Comment: Lore buitrago Type: BLOOD SPECIMENOrdering Facility: [facility] Address: [address] [place] [address] Performed By: #### 3 051-0, 302-7, 96452-3, 28698-1 ####[facility] LABIA [id number] [address] [address] [place] Protein [Mass/Vol] 7.8 g/dL Normal 6.3-8.0 [facility] Comment on above: Order Comment: Speci men Type: BLOOD SPECIMENOrdering Facility: [facility] Address: [address] [place] [address] Performed By: #### 3 051-0, 3024-7, 36435-4, 01344-7 ####[facility] [id number] [place] [id number] [place] Sodium [Moles/Vol] 137 mmol/L Normal 136-144 [facility] Comment on above: Order Comment: Speci men Type: BLOOD SPECIMENOrdering Facility: [facility] Address: [address] [place] [address] Performed By: #### 3 051-0, 3024-7, , 77286-0 ####[facility] [id number] [place] [id number] [place] Urea nitrogen [Mass/Vol] 9 mg/dL Normal 7-21 [facility] Comment on above: Order Comment: Speci men Type: BLOOD SPECIMENOrdering Facility: [facility] Address: [address] [place] [address] Performed By: #### 3 051-0, 3024-7, 45202-4, 22884-4 ####[facility] [id number] [place] [id number] [place] ESR Westergren method (Bld) [Velocity]on 02-18-2025 ESR (Bld) [Velocity] 26 mm/h High 0-20 [facility] Comment on above: Order Comment: Speci men Type: BLOOD SPECIMENOrdering Facility: [facility] Address: [address] [place] [address] Performed By: #### 5 7021-8, 4537-7 ####[facility] LABIA [id number] [address] [address] [place] Ferritin SerPl-mCncon 2024 Ferritin [Mass/Vol] 94.3 ng/mL Normal 14.7-205.1 [facility] Comment on above: Order Comment: Speci men Type: BLOOD SPECIMENOrdering Facility: [facility] Address: [address] [place] [address] Performed By: #### 2 276-4, 3016-3, 1987- ####[facility] LABIA [id number] [address] [place] Folate SerPl-mCncon 02-19-20 Folate [Mass/Vol] 11.8 ng/mL Normal >4.7 [facility] Comment on above: Order Comment: Speci men Type: BLOOD SPECIMENOrdering Facility: [facility] Address: [address] [place] [address] Performed By: #### 2 284-8, 2132-9 ####[facility] [id number] [place] [address] [place] HbA1c (Bld)on 02-18-2025 Average glucose Estimated from glycated hemoglobin (Bld) [Mass/Vol] 88 mg/dL Normal [facility] Comment on above: Order Comment: Speci men Type: BLOOD SPECIMENOrdering Facility: [facility] Address: [address] [place] [address] Result Comment: eAG: (Estimated average glucose) is a calculated value from HgbA1c and is brand representative of the average blood glucose level in the last 2-3 month period. Performed By: #### 5 5454-3 ####[facility] LABIA [id number] [place] [id number] [place] HbA1c (Bld) [Mass fraction] 4.7 % Normal 4.3-5.6 [facility] Comment on above: Order Comment: Speci men Type: BLOOD SPECIMENOrdering Facility: [facility] Address: [address] [place] [address] Result Comment: [place] Diabetes Association guidelines indicate that patients with HgbA1c in the range 5.7-6.4% are at increased risk for development of diabetes, and intervention by lifestyle modification may be beneficial. HgbA1c greater or equal to 6.5% is considered diagnostic of diabetes. Performed By: #### 5 5454-3 ####[facility] LABCLIA [id number] [place] [id number] [place] Iron and Iron binding capaci ty panelon 02-18-2025 Iron [Mass/Vol] 127 ug/dL Normal 41-186 [facility] Comment on above: Order Comment: Speci men Type: BLOOD SPECIMENOrdering Facility: [facility] Address: [address] [place] [address] Performed By: #### 3 051-0, 3024-7, 32673-6, 35994-7 ####[facility] LABCLIA [id number] [place] [address] [place] Iron binding capacity [Mass/Vol] 297 ug/dL Normal 232-386 [facility] Comment on above: Order Comment: Speci men Type: BLOOD SPECIMENOrdering Facility: [facility] Address: [address] [place] [address] Performed By: #### 3 051-0, 3024-7, 14863-8, 22000-7 ####[facility] LABCLIA [id number] [address] [address] [place] Iron/TIBC [Molar ratio] 42.8 % Normal 15.0-57.0 [facility] Comment on above: Order Comment: Speci men Type: BLOOD SPECIMENOrdering Facility: [facility] Address: [address] [place] [address] Performed By: #### 3 051-0, 3024-7, 34894-3, 58872-2 ####[facility] LABCLIA [id number] [place] [id number] [place] T3Free SerPl-mCncon 02-19-20 25 Free T3 [Mass/Vol] 3.7 pg/mL Normal 2.3-4.1 [facility] Comment on above: Order Comment: Lore buitrago Type: BLOOD SPECIMENOrdering Facility: [facility] Address: [address] [place] [address] Performed By: #### 3 051-0, 3024-7, 73964-3, 23716-5 ####[facility] LABIA [id number] [place] [id number] [place] T4 Free SerPl-mCncon 025 Free T4 [Mass/Vol] 1.1 ng/dL Normal 0.9-1.7 [facility] Comment on above: Order Comment: Lore buitrago Type: BLOOD SPECIMENOrdering Facility: [facility] Address: [address] [place] [address] Performed By: #### 3 051-0, 3024-7, 25686-4, 78105-5 ####[facility] LABIA [id number] [place] [address] [place] TSH SerPl-aCncon 02-18-2025 TSH Qn 0.711 m[IU]/L Normal 0.270-4.200 [facility] Comment on above: Order Comment: Lore buitrago Type: BLOOD SPECIMENOrdering Facility: [facility] Address: [address] [place] [address] Result Comment: If t he patient is , TSH reference range varies by gestational period: First Trimester (weeks 9-12): 0.180-2.990 mIU/L Second Trimester: 0.110-3.980 mIU/L Third Trimester: 0.480-4.710 mIU/L Rolando Cheatham et al. A Practical Approach for the Verifications and Determination of Site- and Trimester-Specific Reference Intervals for Thyroid Function tests in . Thyroid, 2019:29:3:412-420. Wiliam Escobar, et al. 2017 Guidelines of the [place] Thyroid Association for the Diagnosis and Management of Thyroid Disease during and the . Thyroid, 2017:27:3:315-389. Performed By: #### 2 276-4, 3016-3, 1987- ####[facility] LABCLIA [id number] [place] [id number] [place] VITAMIN B6/PYRIDOXINon 02-18 VITAMIN B6 51.8 nmol/L Normal 20.0-125.0 [facility] Comment on above: Order Comment: Speci men Type: BLOOD SPECIMENOrdering Facility: [facility] Address: [address] [place] [address] Result Comment: INTE RPRETIVE INFORMATION: Vitamin B6 (Pyridoxal 5-Phosphate) Pyridoxal 5'-phosphate measured in a specimen collected following an 8-hour or overnight fast accurately indicates vitamin B6 nutritional status. Non-fasting specimen concentration reflects recent vitamin intake. This test was developed and its performance characteristics determined by [facility]. It has not been cleared or approved by the [place] Food and Drug Administration. This test was performed in a CLIA certified laboratory and is intended for clinical purposes. Performed By: [facility] [address] [place] [address] [employer] Consultant: Yared Curry MD, PhD CLIA Number: [id number] Performed By: #### V ITB6 ####[facility] [id number] [place] [id number] Vit B12 SerPl-ncon 025 Cobalamin (Vitamin B12) [Mass/Vol] 472 pg/mL Normal 232-1245 [facility] Comment on above: Order Comment: Speci men Type: BLOOD SPECIMENOrdering Facility: [facility] Address: [address] [place] [address] Performed By: #### 2 284-8, 2132-9 ####[facility] LABCLIA [id number] [place] [id number] [place] CNPNon 02-14-2025 CNPN Telephone (INTMWS) ----- JONATHANKATIE ([id number]) 2000 F Date Time Provider Department 02/14/25 KATE SILVA During your visit today, we recorded the following information about you: Los Chamorro RN 02/14/2025 2:26 PM Signed [facility] in [facility] and he reports they do not have the Pt's blood glucose test strips. He put me through to the pharmacist. I gave him a verbal order for 50 strips with 11 refills. I made sure he had received the order for the Nizoral, Omeprazole, and Zofran ODT. He states they had all of those. Los Chamorro RN Allergies As of Date: 02/14/2025 (No Known Allergies) Date Reviewed: 02/09/2025 Reviewed by: Vandana Pereyra MA - Fully Assessed Prescriptions as of 02/14/2025 - omeprazole (PRILOSEC) 20 mg capsule Take 1 capsule by mouth once daily. On empty stomach at least 30 minutes before eating. - ondansetron orally disintegrating (ZOFRAN ODT) 4 mg disintegrating tablet Take 1 tablet by mouth every 8 hours as needed for nausea/vomiting. - ketoconazole (NIZORAL) 2 % shampoo Apply to affected area two times a week. - blood sugar diagnostic (BLOOD GLUCOSE TEST) test strip Test blood sugar(s) one times daily. Dx: Type 2 DM - Controlled E11.9 Insulin: No - amphetamine-dextroampheta mine XR (ADDERALL XR) 30 mg capsule Take 1 capsule by mouth every morning for 30 days. Patient should start on February 18, 2025. - methylphenidate (RITALIN) 20 mg tablet Take 1 tablet by mouth as needed for up to 30 days. Take at approx. 3-4 pm. Patient should start on February 18, 2025. - methylphenidate (RITALIN) 20 mg tablet Take 1 tablet by mouth as needed for up to 30 days. Take at approx. 3-4 pm. Patient should start on March 20, 2025. - methylphenidate (RITALIN) 20 mg tablet Take 1 tablet by mouth as needed for up to 30 days. Take at approx. 3-4 pm. Patient should start on April 19, 2025. - amphetamine-dextroampheta mine XR (ADDERALL XR) 30 mg capsule Take 1 capsule by mouth every morning for 30 days. Patient should start on March 20, 2025. - amphetamine-dextroampheta mine XR (ADDERALL XR) 30 mg capsule Take 1 capsule by mouth every morning for 30 days. Patient should start on April 19, 2025. - dulaglutide (TRULICITY) 0.75 mg/0.5 mL pen injector Inject 0.75 mg subcutaneously one time a week. - FLUoxetine (PROZAC) 10 mg capsule Take 1 capsule by mouth once daily. - rizatriptan (MAXALT) 10 mg tablet Take 1 tablet by mouth as needed for migraine headache (see administration instructions). May repeat dose after 2 hours if needed. Maximum daily dose is 30 mg per day. - CPAP/BIPAP/OTHER Type .CPAPSettings into a note to see current settings/supplies/DME information. - propranolol (INDERAL) 20 mg tablet Take 1 tablet by mouth three times a day as needed (for heart rate over 100). - albuterol HFA (PROVENTIL HFA, VENTOLIN HFA) 90 mcg/actuation inhaler Inhale 2 puffs as instructed every 4 hours as needed for wheezing/shortness of breath. - amphetamine-dextroampheta mine XR (ADDERALL XR) 30 [...] a day as needed (for dizziness.vertigo.). - triamcinolone acetonide (KENALOG) 0.1 % cream Apply to affected area two times a day as needed. May use for up to 14 days per rash - Lancets Test blood sugar(s) one times daily. Dx: Type 2 DM - Controlled E11.9 Insulin: No - Norethindrone, Contraceptive, (SELMA) 0.35 mg tablet Take 1 tablet by mouth once daily. 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 Normal [facility] CNOVon 02-09-2025 CNOV Office Visit (INTMWS ) ----- KATIE FORDE ([id number]) 2000 F Date Time Provider Department 02/09/25 4:00 PM KATE SILVA INTMWS During your visit today, we recorded the following information about you: Pulse Respiration Blood pressure Weight 76/minute 16/minute 122/80 133.3 kg Kate Silva MD 03/17/2025 9:41 AM Signed Subjective Katie Forde is a 24 year old female. HPI SUBJECTIVE: Katie Forde is a 24-year-old female with a history of anxiety, presenting for a 3-month follow-up. Katie reports daily palpitations and a persistent sensation of feeling hot, even when others around her feel cold. She notes that sometimes she wakes up feeling hot, but her body feels cold to the touch. She denies any known fevers. She is currently drinking approximately 80 ounces of water daily but has noticed that her urine remains very yellow. She suspects she may be sweating more than usual due to her constant feeling of being hot, especially when outside. She also reports random episodes of dizziness and is unsure if these are related to her anxiety. She has been practicing deep breathing exercises to manage her palpitations. Her heart rate during these episodes is usually in the 70s, as measured by her Apple Watch. She mentions that her psychiatrist believes her symptoms may be due to anxiety, but she is experiencing these symptoms daily without any specific triggers. Katie has a history of insomnia and currently sleeps on the couch, stating that it makes her feel better to fall asleep before her mother does. It takes her approximately 30-45 minutes to fall asleep, and she wakes up 2-3 times during the night. She practices breathing exercises to help with sleep but does not count her breaths. She also reports random episodes of numbness and tingling, as well as back numbness, which she attributes to sleeping on the couch. She has not started any B6, B12, or folic acid supplements. She mentions a persistent bump that she tattooed over, which has not gone away and feels hard to the touch. She denies any changes in size, scaling, or bleeding of the bump. She is currently taking omeprazole, ondansetron, ketoconazole shampoo, glucose test strips, Adderall, and Ritalin. She also has an albuterol inhaler and a couple of topical creams. She denies any issues with her current medications. She has a history of fatty liver and is concerned about her liver function. She also mentions a history of recurrent yeast infections. PAST MEDICAL HISTORY Diagnosis Date ADHD (attention [...] every 8 hours as needed for nausea/vomiting. ketoconazole (NIZORAL) 2 % shampoo Apply to affected area two times a week. blood sugar diagnostic (BLOOD GLUCOSE TEST) test strip Test blood sugar(s) one times daily. Dx: Type 2 DM - Controlled E11.9 Insulin: No amphetamine-dextroampheta mine XR (ADDERALL XR) 30 mg capsule Take 1 capsule by mouth every morning for 30 days. Patient should start on February 18, 2025. methylphenidate (RITALIN) 20 mg tablet Take 1 tablet by mouth as needed for up to 30 days. Take at approx. 3-4 pm. Patient should start on February 18, 2025. [START ON 03/20/2025] methylphenidate (RITALIN) 20 mg tablet Take 1 tablet by mouth as needed for up to 30 days. Take at approx. 3-4 pm. Patient should start on March 20, 2025. [START ON 04/19/2025] methylphenidate (RITALIN) 20 mg tablet Take 1 tablet by mouth as needed for up to 30 days. Take at approx. 3-4 pm. Patient should start on April 19, 2025. [START ON 03/20/2025] amphetamine-dextroampheta mine XR (ADDERALL XR) 30 mg capsule Take 1 capsule by mouth every morning for 30 days. Patient should start on March 20, 2025. [START ON 04/19/2025] amphetamine-dextroampheta mine XR (ADDERALL XR) 30 mg capsule Take 1 capsule by mouth every morning for 30 days. Patient should start on April 19, 2025. dulaglutide (TRULICITY) 0.75 mg/0.5 mL pen injector Inject 0.75 mg subcutaneously one time a week. FLUoxetine (PROZAC) 10 mg capsule Take 1 capsule by mouth once daily. rizatriptan (MAXALT) 10 mg tablet Take 1 tablet by mouth as needed for migraine headache (see administration instructions). May repeat dose after 2 hours if needed. Maximum daily dose is 30 mg per day. CPAP/BIPAP/OTHER Type .CPAPSettings into a note to see current settings/supplies/DME information. propranolol (INDERAL) 20 mg tablet Take 1 tablet by mouth three times a day as needed (f (more content not included)... Normal [facility] CNOVon 01-03-2025 CNOV Office Visit (INTMWS ) ----- KATIE FORDE ([id number]) 2000 F Date Time Provider Department 01/03/25 1:20 PM SHER HOLLING[place]ORTH INTLizaWS During your visit today, we recorded the following information about you: Pulse Blood pressure Weight Last Period 79/minute 120/80 131.5 kg 12/19/24 Sher Hollingsworth APRN.CRIBBER 01/03/2025 3:52 PM Signed SUBJECTIVE Katie Forde is a 24 year old female here today for a check up on her medical problems. Chief Complaint Patient presents with: Recheck HPI Katie Forde is a 24 year old female. She is an established patient of Kate Silva MD who presents today for follow up. Still not feeling like herself. Not so much depressed but more anxious. More palpitations. Notices these when laying down at night. Not taking her propranolol. Taking the Prozac as 20 mg daily. Sometimes feeling weakness and lightheaded. Sleeping on the couch. Waking up a lot. Still using CPAP nightly. Sugars okay, around 107 fasting. Work up has included Holter monitor and has MRIs ordered to complete. Her medications were reviewed today and her list is now up to date. Medications Current Outpatient Medications Medication Sig FLUoxetine (PROZAC) 10 mg capsule Take 1 capsule by mouth once daily. rizatriptan (MAXALT) 10 mg tablet Take 1 tablet by mouth as needed for migraine headache (see administration instructions). May repeat dose after 2 hours if needed. Maximum daily dose is 30 mg per day. ondansetron orally disintegrating (ZOFRAN ODT) 4 mg disintegrating tablet Take 1 tablet by mouth every 8 hours as needed for nausea/vomiting. propranolol (INDERAL) 20 mg tablet Take 1 tablet by mouth three times a day as needed (for heart rate over 100). albuterol HFA (PROVENTIL HFA, VENTOLIN HFA) 90 mcg/actuation inhaler Inhale 2 puffs as instructed every 4 hours as needed for wheezing/shortness of breath. ketoconazole (NIZORAL) 2 % shampoo Apply to affected area two times a week. methylphenidate (RITALIN) 20 mg tablet Take 1 tablet by mouth as needed for up to 30 days. Take at approx. 3-4 pm. Patient should start on December 19, 2024. amphetamine-dextroampheta mine XR (ADDERALL XR) [...] times a day as needed (for dizziness.vertigo.). triamcinolone acetonide (KENALOG) 0.1 % cream Apply to affected area two times a day as needed. May use for up to 14 days per rash omeprazole (PRILOSEC) 20 mg capsule Take 1 capsule by mouth once daily. On empty stomach at least 30 minutes before eating. dulaglutide (TRULICITY) 0.75 mg/0.5 mL pen injector Inject 0.75 mg subcutaneously one time a week. methylphenidate (RITALIN) 20 mg tablet Take 1 tablet by mouth as needed for up to 30 days. Take at approx. 3-4 pm. amphetamine-dextroampheta mine XR (ADDERALL XR) 30 mg capsule Take 1 capsule by mouth every morning for 30 days. CPAP/BIPAP/OTHER Type .CPAPSettings into a note to see current settings/supplies/DME information. amphetamine-dextroampheta mine XR (ADDERALL XR) 30 mg [...] Take 1 tablet by mouth once daily. No current facility-administered medications for this visit. [...] status: Former Current packs/day: 0.00 Types: Cigarettes (more content not included)... Normal [facility] CNOVon 12-06-2024 CNOV Office Visit (INTMWS ) ----- KATIE FORDE ([id number]) 2000 F Date Time Provider Department 12/06/24 2:00 PM SHER HOLLINGSWORTH During your visit today, we recorded the following information about you: Pulse Blood pressure Weight 100/minute 120/64 132.4 kg Sher Hollingsworth APRN.CRIBBER 12/06/2024 2:52 PM Signed SUBJECTIVE Katie Forde is a 23 year old female here today for a check up on her medical problems. Chief Complaint Patient presents with: Recheck: was seen in [facility] ER for elevated heart rate HPI Katie Forde is a 23-year-old female with a history of anxiety, presenting with persistent and worsening anxiety. She also reports worsening anxiety, which has been severe enough to limit her ability to stay in public places, such as a recent episode at [facility] where she could only stay for 5 minutes before needing to leave. She describes frequent palpitations, particularly at night, which make it difficult for her to fall asleep. She also notes a new anxious tic, where she holds her breast or moves her leg repetitively without realizing it. She reports feeling anxious during a recent date at [employer], despite feeling safe. She denies recent panic attacks but states that her anxiety is the worst it has ever been. She denies suicidal ideation and expresses a fear of . Katie was recently diagnosed with childhood PTSD by a therapist and was prescribed Prozac, but she has not started taking it due to fear of potential side effects, including feeling emotionless or like a zombie, which she experienced with previous antidepressants. She was also advised to discontinue Seroquel by her therapist. She reports feeling very tired lately, despite using a new CPAP mask and equipment for sleep apnea. She also reports episodes of tachycardia, with a heart rate of 133 bpm while sitting, accompanied by weakness, lightheadedness, and nausea. She was recently hospitalized for these symptoms and was monitored with a Holter monitor, which she is scheduled to return to the hospital. She reports nightly palpitations and has been prescribed propranolol but is hesitant to take it due to fear of her heart rate dropping below 55 bpm. She also reports episodes of random sleep, during which she is unresponsive to her mother. Katie also reports fluctuations in her blood glucose levels, with readings in the 100s after taking 2 sips of coffee, compared to 90s when fasting on a higher dose of medication. She expresses concern about these fluctuations and reports feeling a bubble in her body. She denies being able to administer her own insulin injections and relies on her mother for assistance. Her medications were reviewed today and her list is now up to date. Medications Current Outpatient Medications Medication Sig ondansetron orally disintegrating (ZOFRAN ODT) 4 mg disintegrating tablet Take 1 tablet by mouth every 8 hours as needed for nausea/vomiting. propranolol (INDERAL) 20 mg tablet Take 1 tablet by mouth three times a day as needed (for heart rate over 100). albuterol HFA (PROVENTIL HFA, VENTOLIN HFA) 90 mcg/actuation inhaler Inhale 2 puffs as instructed every 4 hours as needed for wheezing/shortness of breath. ketoconazole (NIZORAL) 2 % shampoo Apply to affected area two times a week. clobetasol (TEMOVATE) 0.05 % cream Apply to affected area 2x/day for 2 weeks, then 1x/day for a week, than 1-3x/week for maintenance. meclizine (ANTIVERT) 25 mg tab Take 1 tablet by mouth three times a day as needed (for dizziness.vertigo.). triamcinolone acetonide (KENALOG) 0.1 % cream Apply [...] by mouth every morning for 30 days. FLUoxetine (PROZAC) 10 mg capsule Take 1 capsule by mouth once daily. dulaglutide (TRULICITY) 0.75 mg/0.5 mL pen injector Inject 0.75 mg subcutaneously one time a week. rizatriptan (MAXALT) 10 mg tablet Take 1 tablet by mouth as needed for migraine headache (see administration instructions). May repeat dose after 2 hours if needed. Maximum daily dose is 30 mg per day. CPAP/BIPAP/OTHER Type .CPAPSettings into a note to see current settings/supplies/DME information. amphetamine-dextroampheta mine XR (ADDERALL XR) 30 mg capsule Take 1 capsule by mouth every morning for 30 days. methylphenidate (RITALIN) 20 mg tablet Take 1 tablet by mouth as needed for up to 30 days. Take at approx. 3-4 pm. [START ON (more content not included)... Normal [facility] 12 Lead EKGon 12-02-2024 12 Lead EKG [facility] [address] [place] [address] 12 Lead EKG 12/02/242057 MR#: [id number] Acct: [id number] Name: KATIE FORDE Rep #: [id number] : 2000 From: Yuly Aquino MD Attending Dr: Status: DEP ER Ordering Dr: Mike Feldman DO Date: 12/02/24 Location: ED Sex: F C Admitted: Test Reason : DYSRHYTHMIA Blood Pressure : */* mmHG Vent. Rate : 108 BPM Atrial Rate : 108 BPM P-R Int : 146 ms QRS Dur : 76 ms QT Int : 326 ms P-R-T Axes : 55 56 52 degrees QTcB Int : 436 ms Sinus tachycardia Otherwise normal ECG Confirmed by MILES MEDRANO, NIMCO ([id number]), production editor LOS ZARATE ([id number]) on 12/06/2024 6:47:49 AM Referred By: TL Confirmed By: NIMCO AQUINO MD 12/06/24 0647 Date Yuly Aquino MD CC: Dr. Kate Silva MD; Dr. Mike Feldman, DO Signed Normal [facility] Absolute lymphocyte countOrd ered By: Mike Feldman on 12-02-2024 Lymphocytes Auto (Unsp spec) [#/Vol] 3.93 10*3/uL 0.83-4.51 [facility] Absolute neutrophil countOrd ered By: Mike Feldman on 12-02-2024 Neutrophils (Bld) [#/Vol] 9.5 10*3/uL High 2.0-7.7 [facility] Anion gap in Serum or Plasma Ordered By: Mike Feldman on 12-02-2024 Anion gap [Moles/Vol] 14 mmol/L 5-15 [facility] Automated lymphocyte count a s percentage of total leukocytesOrdered By: Mike Feldman on 12-02-2024 Lymphocytes/100 WBC Auto (Unsp spec) 27.4 % 19-41 [facility] BUN/creatinine ratioOrdered By: Mike Feldman on 12-02-2024 Urea nitrogen/Creatinine [Mass ratio] 11.6 mg/mg 10- [facility] Basic Metabolic Profile (BMP )on 12-02-2024 BUN/CRE 11.6 RATIO Normal - [facility] Comment on above: Performed By: #### L 700.8000, L300.8000, L500.2500, L100.0100 #### [facility] [address] [place], [address] Calcium [Mass/Vol] 8.7 mg/dL Normal 7.6-11.0 [facility] Comment on above: Performed By: #### L 700.8000, L300.8000, L500.2500, L100.0100 #### [facility] [address] [place], [address] Chloride [Moles/Vol] 101 mmol/L Normal 98-108 [facility] Comment on above: Performed By: #### L 700.8000, L300.8000, L500.2500, L100.0100 #### [facility] [address] [place], [address] CO2 [Moles/Vol] 20.6 mmol/L Low 21.0-32.0 [facility] Comment on above: Performed By: #### L 700.8000, L300.8000, L500.2500, L100.0100 #### [facility] [address] [place], [address] Creatinine [Mass/Vol] 0.89 mg/dL Normal 0.70-1.20 [facility] Comment on above: Performed By: #### L 700.8000, L300.8000, L500.2500, L100.0100 #### [facility] [address] [place], [address] ECRCL 150.27 ml/min Normal 50-250 [facility] Comment on above: Performed By: #### L 700.8000, L300.8000, L500.2500, L100.0100 #### [facility] [address] [place], [address] GAP 14 Normal 5-15 [facility] Comment on above: Performed By: #### L 700.8000, L300.8000, L500.2500, L100.0100 #### [facility] [address] [place], [address] GFR/1.73 sq M.predicted among non-blacks MDRD (S/P/Bld) [Vol rate/Area] 92 mL/min/{1.73_m2} Normal >60 [facility] Comment on above: Result Comment: mL/m in/1.73m2 CKD-EPI Creatinine Equation (2020) Performed By: #### L 700.8000, L300.8000, L500.2500, L100.0100 #### [facility] [address] [place], [address] Glucose [Mass/Vol] 199 mg/dL High 70-99 [facility] Comment on above: Performed By: #### L 700.8000, L300.8000, L500.2500, L100.0100 #### [facility] [address] [place], [address] Potassium [Moles/Vol] 3.7 mmol/L Normal 3.3-5.1 [facility] Comment on above: Performed By: #### L 700.8000, L300.8000, L500.2500, L100.0100 #### [facility] [address] [place], [address] Sodium [Moles/Vol] 136 mmol/L Normal 133-145 [facility] Comment on above: Performed By: #### L 700.8000, L300.8000, L500.2500, L100.0100 #### [facility] [address] [place], [address] Urea nitrogen [Mass/Vol] 10 mg/dL Normal 4-19 [facility] Comment on above: Performed By: #### L 700.8000, L300.8000, L500.2500, L100.0100 #### [facility] [address] [place], [address] Basophil percentageOrdered B y: Mike Le on 12-02-2024 Basophils/100 WBC (Bld) 0.6 % 0-1 [facility] Bilirubin Test strip Ql (U)O rdered By: Mike Feldman on 12-02-2024 Bilirubin Ql (U) Negative Negative [facility] CBC W/Diff, Automatedon 06- Absolute Lymph 3.93 X10 3/uL Normal 0.83-4.51 [facility] Comment on above: Performed By: #### L 700.8000, L300.8000, L500.2500, L100.0100 #### [facility] [address] [place], [address] Absolute Neut 9.5 X10 3/uL High 2.0-7.7 [facility] Comment on above: Performed By: #### L 700.8000, L300.8000, L500.2500, L100.0100 #### [facility] [address] [place], [address] Basophils/100 WBC (Bld) 0.6 % Normal 0-1 [facility] Comment on above: Performed By: #### L 700.8000, L300.8000, L500.2500, L100.0100 #### [facility] [address] [place], [address] Eosinophils/100 WBC (Bld) 0.6 % Normal 0-5 [facility] Comment on above: Performed By: #### L 700.8000, L300.8000, L500.2500, L100.0100 #### [facility] [address] [place], [address] Erythrocyte distribution width (RBC) [Ratio] 11.9 % Normal 11.6-14.6 [facility] Comment on above: Performed By: #### L 700.8000, L300.8000, L500.2500, L100.0100 #### [facility] [address] [place], [address] Hematocrit (Bld) [Volume fraction] 40.7 % Normal 37-47 [facility] Comment on above: Performed By: #### L 700.8000, L300.8000, L500.2500, L100.0100 #### [facility] [address] [place], [address] Hemoglobin (Bld) [Mass/Vol] 14.3 g/dL Normal 12.0-15.0 [facility] Comment on above: Performed By: #### L 700.8000, L300.8000, L500.2500, L100.0100 #### [facility] [address] [place], [address] IG% 0.300 Normal 0.0-0.9 [facility] Comment on above: Result Comment: IG% - Immature Granulocytes (promyelocytes, myelocytes and metamyelocytes) > 1% indicates that a LEFT SHIFT is Present. Performed By: #### L 700.8000, L300.8000, L500.2500, L100.0100 #### [facility] [address] [place], [address] Lymphocytes/100 WBC (Bld) 27.4 % Normal 19-41 [facility] Comment on above: Performed By: #### L 700.8000, L300.8000, L500.2500, L100.0100 #### [facility] [address] [place], [address] MCH (RBC) [Entitic mass] 31.0 pg Normal 27.0-32.0 [facility] Comment on above: Performed By: #### L 700.8000, L300.8000, L500.2500, L100.0100 #### [facility] [address] [place], [address] MCHC (RBC) [Mass/Vol] 35.1 g/dL Normal 32-36 [facility] Comment on above: Performed By: #### L 700.8000, L300.8000, L500.2500, L100.0100 #### [facility] [address] [place], [address] MCV (RBC) [Entitic vol] 88.1 fL Normal 81-99 [facility] Comment on above: Performed By: #### L 700.8000, L300.8000, L500.2500, L100.0100 #### [facility] [address] [place], [address] Monocytes/100 WBC (Bld) 5.0 % Normal 0-10 [facility] Comment on above: Performed By: #### L 700.8000, L300.8000, L500.2500, L100.0100 #### [facility] [address] [place], [address] Neutrophils/100 WBC (Bld) 66.1 % Normal 47-70 [facility] Comment on above: Performed By: #### L 700.8000, L300.8000, L500.2500, L100.0100 #### [facility] [address] [place], [address] Nucleated RBC (Bld) [#/Vol] 0 10*3/uL Normal 0-5 [facility] Comment on above: Performed By: #### L 700.8000, L300.8000, L500.2500, L100.0100 #### [facility] [address] [place], [address] Platelet mean volume (Bld) [Entitic vol] 9.6 fL Normal 6.2-12.0 [facility] Comment on above: Performed By: #### L 700.8000, L300.8000, L500.2500, L100.0100 #### [facility] [address] [place], [address] Platelets (Bld) [#/Vol] 494 10*3/uL High 150-450 [facility] Comment on above: Performed By: #### L 700.8000, L300.8000, L500.2500, L100.0100 #### [facility] [address] [place], [address] RBC (Bld) [#/Vol] 4.62 10*6/uL Normal 4.2-5.4 [facility] Comment on above: Performed By: #### L 700.8000, L300.8000, L500.2500, L100.0100 #### [facility] [address] [place], [address] RDW SD 38.2 fl Normal 35.1-43.9 [facility] Comment on above: Performed By: #### L 700.8000, L300.8000, L500.2500, L100.0100 #### [facility] [address] [place], [address] WBC (Bld) [#/Vol] 14.3 10*3/uL High 4.4-11.0 [facility] Comment on above: Performed By: #### L 700.8000, L300.8000, L500.2500, L100.0100 #### [facility] [address] [place], [address] Carbon dioxide, total [Moles /volume] in Central venous bloodOrdered By: Mike Feldman on 12-02-2024 CO2 [Moles/Vol] 20.6 mmol/L Low 21.0-32.0 [facility] Chloride assayOrdered By: Jasiel Feldman on 12-02-2024 Chloride [Moles/Vol] 101 mmol/L 98-108 [facility] D-Dimer Quantitative (DVT/PE )on 12-02-2024 D-DIMER QUANT < 0.27 Low 0.27-0.49 [facility] Comment on above: Result Comment: NORM AL D-Dimer level (<0.50) indicates no DVT or PE. Performed By: #### L 700.8000, L300.8000, L500.2500, L100.0100 #### [facility] [address] [place], [address] Emergency Department Summary on 12-02-2024 Emergency Department Summary [facility] Medical Records Department [address] [place] [address] Emergency Department Summary 12/02/24 MR#: [id number] Acct: [id number] Name: KATIE FORDE Rep #: [id number] : 2000 23 From: Mike Caballero PCP: Dr. Kate Silva MD Status:DEP ER Location: ED HPI History of Present Illness Chief Complaint: Palpitations Informant: patient Narrative Narrative: Patient presents noting more frequent PVCs are [id number] for last 2 days. She has had for years she is follows cardiology. She admits to coffee use daily she took 1 today she vapes. Denies energy drinks. No cough. No recent travel or surgeries. No history of PE or DVT. Last menstrual period in the last month. States with the symptoms she feels weak sometimes feels dizzy. No cough symptoms. She states the nausea makes her want to cough. No vomiting or diarrhea. She called nursing line through cardiology office was referred to the ED. Prior similar symptoms: Yes PFSH PFSH Medical History Depersonalization disorder Fatty liver Smoker [...] / Time No Known Allergies Allergy Verified 12/02/24 20:47 Surgical History History of liver biopsy Social History Smoking Status: Light Smoker (<10/day) ROS ROS ED Constitutional Constitutional ED: Denies chills, fever(s) or sweats ENT ENT ED: Denies sore throat Cardiovascular Cardiovascular: Reports palpitations, racing heartbeat and other; Denies chest pain or leg edema Respiratory/Chest Respiratory/Chest: Denies cough, dyspnea or dyspnea on exertion Gastrointestinal Gastrointestinal: Reports nausea; Denies abdominal pain, diarrhea or vomiting Genitourinary Genitourinary ED: Denies dysuria, hematuria or urinary frequency Musculoskeletal Musculoskeletal: Denies back pain, extremity pain or neck pain Integumentary Denies rash or wounds Neurologic Neurologic: Denies headache(s), paresthesias or weakness EXAM Physical Exam Const Vital Signs: 12/02/24 20:47 12/02/24 21:12 12/02/24 21:47 Temperature 97.5 F L Temperature Source Temporal Pulse Rate 115 H 103 H Respiratory Rate 16 15 Respiratory Effort Normal Blood Pressure 152/94 H 130/88 H Blood Pressure Mean 113 102 Pulse Ox 98 100 Oxygen Delivery Method Room Air Room Air 12/02/24 22:00 12/02/24 23:00 12/02/24 23:42 Temperature 97.8 F Temperature Source Pulse Rate 99 99 95 Respiratory Rate 24 H 22 H 16 Respiratory Effort Blood Pressure 138/92 H 139/89 H 135/79 H Blood Pressure Mean 107 105 97 Pulse Ox 100 96 97 Oxygen Delivery Method Room Air Room Air [...] movement; Negative for respiratory distress Cardio regular rhythm and no murmurs Rate: tachycardic Peripheral Pulses: pulses 2+ throughout GI normal to inspection, nondistended, normoactive bowel sounds and non-tender Palpation: Negative for guarding or rebound tenderness present Extremity normal to inspection General Extremety ED: Negative for edema or tenderness General Extremity: Negative for edema Neuro oriented x3, CN's II-XII intact bilaterally and no sensory deficits noted Sensorium / Orientation: awake and alert Skin no rashes or lesions no (more content not included)... Normal [facility] Eosinophil percentageOrdered By: Mike Feldman on 12-02-2024 Eosinophils/100 WBC (Bld) 0.6 % 0-5 [facility] Erythrocyte distribution wid th ratioOrdered By: Mike Feldman on 12-02-2024 Erythrocyte distribution width (RBC) [Ratio] 11.9 % 11.6-14.6 [facility] Erythrocyte distribution wid th standard deviationOrdered By: Mike Feldman on 12-02-2024 Erythrocyte distribution width (RBC) [Ratio] 38.2 fl 35.1-43.9 [facility] Glomerular filtration rate ( GFR) estimation/1.73 sq m using serum, plasma, or whole bOrdered By: Mike Feldman on 12-02-2024 GFR/1.73 sq M.predicted among non-blacks MDRD (S/P/Bld) [Vol rate/Area] 92 mL/min/{1.73_m2} >60 [facility] Comment on above: mL/min/1.73m2 CKD-EP I Creatinine Equation (2020) Hematocrit Auto (Bld) [Volum e fraction]Ordered By: Mike Feldman on 12-02-2024 Hematocrit (Bld) [Volume fraction] 40.7 % 37-47 [facility] Hemoglobin measurementOrdere d By: Mike Feldman on 12-02-2024 Hemoglobin (Bld) [Mass/Vol] 14.3 g/dL 12.0-15.0 [facility] Immature granulocytes/100 WB C Auto (Bld)Ordered By: Mike Feldman 12-02-2024 Immature granulocytes/100 WBC (Bld) 0.300 % 0.0-0.9 [facility] Comment on above: IG% - Immature Granu locytes (promyelocytes, myelocytes and metamyelocytes) > 1% indicates that a LEFT SHIFT is Present. Ketones Test strip Ql (U)Ord ered By: Mike Feldman on 12-02-2024 Ketones Ql (U) Negative Negative [facility] MCV (mean corpuscular volume ) determinationOrdered By: Mike Feldman 12-02-2024 MCV (RBC) [Entitic vol] 88.1 fL 81-99 [facility] Mean corpuscular hemoglobin (MCH) determinationOrdered By: Mike Feldman 12-02-2024 MCH (RBC) [Entitic mass] 31.0 pg 27.0-32.0 [facility] Mean corpuscular hemoglobin concentration (MCHC) determinationOrdered By: Mike Feldman 12-02-2024 MCHC (RBC) [Mass/Vol] 35.1 g/dL 32-36 [facility] Mean platelet volume determi nationOrdered By: Mike Feldman on 12-02-2024 Platelet mean volume (Bld) [Entitic vol] 9.6 fL 6.2-12.0 [facility] Microscopic analysis of urin e for red blood cells (RBC)Ordered By: Mike Feldman on 12-02-2024 Microscopic analysis of urine for red blood cells (RBC) 0-5 SEEN /hpf 0-5 [facility] Monocyte percentageOrdered B y: Mike Feldman on 12-02-2024 Monocytes/100 WBC (Bld) 5.0 % 0-10 [facility] Mucus LM Ql (Urine sed)Order ed By: Mike Feldman on 12-02-2024 Mucus Ql (Urine sed) 0 SEEN /hpf [facility] Neutrophil percentageOrdered By: Mike Feldman on 12-02-2024 Neutrophils/100 WBC (Bld) 66.1 % 47-70 [facility] Nitrite Test strip Ql (U)Ord ered By: Mike Feldman on 12-02-2024 Nitrite Ql (U) Negative Negative [facility] Nucleated red blood cell per centageOrdered By: Mike Feldman on 12-02-2024 Nucleated RBC/100 WBC (Bld) [Ratio] 0 % 0-5 [facility] Platelet countOrdered By: Jasiel Feldman on 12-02-2024 Platelets (Bld) [#/Vol] 494 10*3/uL High 150-450 [facility] Potassium measurement (mass/ volume)Ordered By: Mike Feldman on 12-02-2024 Potassium (Unsp spec) [Mass/Vol] 3.7 mmol/L 3.3-5.1 [facility] Protein Test strip Ql (U)Ord ered By: Mike Feldman on 12-02-2024 Protein Ql (U) 15 mg/dl High Negative [facility] RBC Auto (Bld) [#/Vol]Ordere d By: Mike Feldman on 12-02-2024 RBC (Bld) [#/Vol] 4.62 10*6/uL 4.2-5.4 [facility] Serum creatinine measurement (mass/volume)Ordered By: Mike Feldman on 12-02-2024 Creatinine [Mass/Vol] 0.89 mg/dL 0.70-1.20 [facility] Serum glucose measurement (m ass/volume)Ordered By: Mike Feldman on 12-02-2024 Glucose [Mass/Vol] 199 mg/dL High 70-99 [facility] Serum human chorionic gonado tropin detection for pregnancyOrdered By: Mike Feldman on 12-02-2024 HCG ( test) Ql < 1 mIU/mL <9 [facility] Comment on above: Gestational Age0.2-1 Week: 5-50 mIU/mL1-2 Weeks: 50-500 mIU/mL2-3 Weeks: 100-5000 mIU/mL3-4 Weeks: 500-10,000 mIU/mL4-5 Weeks:1000-50,000 mIU/mL5-6 Weeks: 10,000-100,000 mIU/mL6-8 Weeks: 15,000-200,000 mIU/mL2-3 Months:10,000-100,000 mIU/mL Serum or plasma calcium lawrence urement (mass/volume)Ordered By: Mike Feldman on 12-02-2024 Calcium [Mass/Vol] 8.7 mg/dL 7.6-11.0 [facility] Serum or plasma urea nitroge n measurement (mass/volume)Ordered By: Mike Feldman on 12-02-2024 Urea nitrogen [Mass/Vol] 10 mg/dL 4-19 [facility] Sodium levelOrdered By: Mike Feldman on 12-02-2024 Sodium [Moles/Vol] 136 mmol/L 133-145 [facility] Squamous epithelial cells de tection in urine sediment by light microscopyOrdered By: Mike Feldman on 12-02-2024 Epithelial cells.squamous LM Ql (Urine sed) 0-5 SEEN /hpf 5-10 [facility] Urinalysis, Completeon 12-02 EPI,SQUAMOUS 0-5 SEEN Normal 5-10 [facility] Comment on above: Order Comment: CLEAN CATCH Performed By: #### L 400.0001 ####[facility] [address] [place], [address] RBC 0-5 SEEN Normal 0-5 [facility] Comment on above: Order Comment: CLEAN CATCH Performed By: #### L 400.0001 ####[facility] [address] [place], [place], [id number] WBC 0-5 SEEN Normal 0-5 [facility] Comment on above: Order Comment: CLEAN CATCH Performed By: #### L 400.0001 ####[facility] [address] [facility] [address] BACTERIA 0 SEEN Normal None Seen [facility] Comment on above: Order Comment: CLEAN CATCH Performed By: #### L 400.0001 ####[facility] [address] [facility] [id number] Mucus Ql (Urine sed) 0 SEEN Normal [facility] Comment on above: Order Comment: CLEAN CATCH Performed By: #### L 400.0001 ####[facility] [address] [place], [place], [phone] Urine clarityOrdered By: Ha Feldman on 12-02-2024 Clarity (U) Clear Clear [facility] Urine color determinationOrd ered By: Mike Feldman on 12-02-2024 Color (U) Straw Yellow [facility] Urine glucose detectionOrder ed By: Mike Feldman on 12-02-2024 Glucose Ql (U) Normal mg/dl Normal [facility] Urine leukocyte esterase det ection by dipstickOrdered By: Mike Feldman on 12-02-2024 Leukocyte esterase Test strip Ql (U) Negative Negative [facility] Urine pHOrdered By: Mike Feldman on 12-02-2024 pH (U) 6.0 [pH] 5.0 - 8.0 [facility] Urine sediment bacteria coun t by microscopy (number/high power field)Ordered By: Mike Feldman on 12-02-2024 Bacteria LM.HPF (Urine sed) [#/Area] 0 /[HPF] None Seen [facility] Urine specific gravity measu rementOrdered By: Mike Feldman on 12-02-2024 Specific gravity (U) [Rel density] 1.020 1.002-1.030 [facility] Urine urobilinogen measureme ntOrdered By: Mike Feldman on 12-02-2024 Urobilinogen Ql (U) Normal mg/dl Normal [facility] White blood cell (WBC) count Ordered By: Mike Feldman on 12-02-2024 WBC (Bld) [#/Vol] 14.3 10*3/uL High 4.4-11.0 [facility] White blood cell countOrdere d By: Mike Feldman on 12-02-2024 White blood cell count 0-5 SEEN /hpf 0-5 [facility] hCG Titer Quant., Serumon HCG QUANT. < 1 Normal <9 non-preg [facility] Comment on above: Result Comment: Gest ational Age 0.2-1 Week: 5-50 mIU/mL 1-2 Weeks: 50-500 mIU/mL 2-3 Weeks: 100-5000 mIU/mL 3-4 Weeks: 500-10,000 mIU/mL 4-5 Weeks:1000-50,000 mIU/mL 5-6 Weeks: 10,000-100,000 mIU/mL 6-8 Weeks: 15,000-200,000 mIU/mL 2-3 Months:10,000-100,000 mIU/mL Performed By: #### L 700.8000, L300.8000, L500.2500, L100.0100 #### [facility] [address] [place], [address] [facility] 11-17-2024 [facility] Telephone ([facility]) ----- KATIE FORDE ([id number]) 2000 F Date Time Provider Department 11/17/24 HAILEY JETT [facility] During your visit today, we recorded the following information about you: Eulalia Hobbs RN 11/17/2024 11:14 AM Signed Faxed mask/supplies order and last office visit notes to: [facility] Fax confirmation received electronically. Allergies As of Date: 11/17/2024 (No Known Allergies) Date Reviewed: 11/08/2024 Reviewed by: Sher Hollingsworth APRN.CRIBBER - Fully Assessed Reason for Visit: PAP Rx Faxed [[phone]] Prescriptions as of 11/17/2024 - CPAP/BIPAP/OTHER Type [...] Status:Closed by EULALIA HOBBS on 11/17/24 Normal [facility] CNOVon 11-16-2024 CNOV Office Visit (NEURFH ) ----- KATIE FORDE ([id number]) 2000 F Date Time Provider Department 11/16/24 4:20 PM HAILEY JETT NEUR During your visit today, we recorded the following information about you: Hailey Jett MD 11/16/2024 5:02 PM Signed [facility] Follow up/ Established patient visit TELEPHONE CALL: Converted from in person as pt had traffic issues and could not be seen in person. No visual communication - not face to face Recording using INCIDE software for draft documentation of the visit was discussed with the patient/authorized brand representative; all questions welcomed and answered. Patient/authorized brand representative agreed to proceed Assessment/Plan from last visit: Date of last visit : Visit date not found 02/25/2023 I inc her pap settings at last visit but the settings did not stay CURRENT VISIT: 11/16/2024 INTERVAL HISTORY: SLEEP APNEA Sleep apnea type : ESTEBAN, Most Recent Apnea-Hypopnea Index (AHI): RDI 9.8, AHI 5.8 Treatment : PAP therapy DME: [employer] PAP History: Uses AutoPAP for 8 hours [...] due to drowsy drivin 09/04/2022 11/08/2022 02/24/2023 [place] Sleepiness Scale Score 9 (No clinically significant [...] due to drowsy drivin 09/04/2022 11/08/2022 02/24/2023 [place] Sleepiness Scale Score 9 (No clinically significant [...] 1-2 t (more content not included)... Normal [facility] CNOVon 11-08-2024 CNOV Office Visit (INTMWS ) ----- KATIE FORDE ([id number]) 2000 F Date Time Provider Department 11/08/24 11:20 AM [facility] During your visit today, we recorded the following information about you: Pulse Blood pressure Weight 101/minute 102/60 131.7 kg Sher Hollingsworth APRN.CRIBBER 11/08/2024 12:43 PM Signed SUBJECTIVE Katie Forde [...] - 07/04 (more content not included)... Normal [facility] CNOVon 11-02-2024 CNOV Office Visit (INTMWS ) ----- KATIE FORDE ([id number]) 2000 F Date Time Provider Department 11/02/24 9:00 AM [facility] [place] [facility] During your visit today, we recorded the following information about you: Pulse Blood pressure Weight Last Period 93/minute 100/70 131.2 kg 10/26/24 Sher Hollingsworth APRN.CRIBBER 11/02/2024 9:37 AM Signed SUBJECTIVE Katieluz Forde is a 23 year old female here today for an ER follow up. Chief Complaint Patient presents with: ER F/U: [facility] ER fatigue and having trouble sleep at [...] to his father's terminal illness. Recording using INCIDE software for draft documentation of the visit was discussed with the patient/authorized brand representative; all questions welcomed and answered. Patient/authorized brand representative agreed to proceed Her medications were [...] (TESSALON JESI (more content not included)... Normal [facility] Basic Metabolic Profile (BMP )on 10-29-2024 BUN/CRE 10.9 RATIO Normal 10-20 [facility] Comment on above: Performed By: #### L 500.2500, L700.6800, L100.0100 ####[facility] [address] [place], [address] Calcium [Mass/Vol] 8.9 mg/dL Normal 7.6-11.0 [facility] Comment on above: Performed By: #### L 500.2500, L700.6800, L100.0100 ####[facility] [address] [place], [address] Chloride [Moles/Vol] 100 mmol/L Normal 98-108 [facility] Comment on above: Performed By: #### L 500.2500, L700.6800, L100.0100 ####[facility] [address] [place], [address] CO2 [Moles/Vol] 20.9 mmol/L Low 21.0-32.0 [facility] Comment on above: Performed By: #### L 500.2500, L700.6800, L100.0100 ####[facility] [address] [place], [address] Creatinine [Mass/Vol] 0.83 mg/dL Normal 0.70-1.20 [facility] Comment on above: Performed By: #### L 500.2500, L700.6800, L100.0100 ####[facility] [address] [place], [address] ECRCL 160.90 ml/min Normal 50-250 [facility] Comment on above: Performed By: #### L 500.2500, L700.6800, L100.0100 ####[facility] [address] [place], [address] GAP 15 Normal 5-15 [facility] Comment on above: Performed By: #### L 500.2500, L700.6800, L100.0100 ####[facility] [address] [place], [address] GFR/1.73 sq M.predicted among non-blacks MDRD (S/P/Bld) [Vol rate/Area] 100 mL/min/{1.73_m2} Normal >60 [facility] Comment on above: Result Comment: mL/m in/1.73m2 CKD-EPI Creatinine Equation (2020) Performed By: #### L 500.2500, L700.6800, L100.0100 ####[facility] [address] [place], [address] Glucose [Mass/Vol] 94 mg/dL Normal 70-99 [facility] Comment on above: Performed By: #### L 500.2500, L700.6800, L100.0100 ####[facility] [address] [place], [address] Potassium [Moles/Vol] 3.8 mmol/L Normal 3.3-5.1 [facility] Comment on above: Performed By: #### L 500.2500, L700.6800, L100.0100 ####[facility] [address] [place], [address] Sodium [Moles/Vol] 135 mmol/L Normal 133-145 [facility] Comment on above: Performed By: #### L 500.2500, L700.6800, L100.0100 ####[facility] [address] [place], [address] Urea nitrogen [Mass/Vol] 9 mg/dL Normal 4-19 [facility] Comment on above: Performed By: #### L 500.2500, L700.6800, L100.0100 ####[facility] [address] [place], [address] CBC W/Diff, Automatedon 05-0 Platelets (Bld) [#/Vol] 399 10*3/uL Normal 150-450 [facility] Comment on above: Performed By: #### L 500.2500, L700.6800, L100.0100 ####[facility] [address] [place], [address] ,Serum,hCG Quali.on 10-29-2024 HCG, SERUM QUAL Negative Normal [facility] Comment on above: Performed By: #### L 500.2500, L700.6800, L100.0100 ####[facility] [address] [place], [address] 12 Lead EKGon 10-28-2024 12 Lead EKG [facility] [address] [place] [address] 12 Lead EKG 10/28/24 2319 MR#: [id number] Acct: [id number] Name: KATIE FORDE Rep #: [id number] : 2000 From: Tom Corey MD Attending [...] Normal ECG Confirmed by CARMEN MEDRANO, TOM ([id number]), production editor BRANDAN VAZQUEZ ([id number]) on 10/29/2024 8:21:54 AM Referred By: Julianna Hughes Confirmed By: TOM COREY MD 10/29/24 08 Date Tom Corey MD CC: Dr. Kate Silva MD; Dr. Julianna Hughes DO Signed Normal [facility] Absolute lymphocyte countOrd ered By: Julianna Hughes on 10-28-2024 Lymphocytes Auto (Unsp spec) [#/Vol] 2.85 10*3/uL 0.83-4.51 [facility] Absolute neutrophil countOrd ered By: Julianna Hughes on 10-28-2024 Neutrophils (Bld) [#/Vol] 16.7 10*3/uL High 2.0-7.7 [facility] Anion gap in Serum or Plasma Ordered By: Julianna Hughes on 10-28-2024 Anion gap [Moles/Vol] 15 mmol/L 5-15 [facility] Automated lymphocyte count a s percentage of total leukocytesOrdered By: Julianna Hughes on 10-28-2024 Lymphocytes/100 WBC Auto (Unsp spec) 13.7 % Low 19-41 [facility] BUN/creatinine ratioOrdered By: Julianna Hughes on 10-28-2024 Urea nitrogen/Creatinine [Mass ratio] 10.9 mg/mg 10-20 [facility] Basophil percentageOrdered B y: Julianna Ellen on 10-28-2024 Basophils/100 WBC (Bld) 0.5 % 0-1 [facility] CTA Chst, Abd, Pel W and/or WOon 10-28-2024 CTA Chst, Abd, Pel W and/or WO [facility] Imaging Services [address] [place] [address] CTA Chst, Abd, Pel W and/or WO MR#: [id number] Acct: [id number] Name: KATIE FORDE Rep #: [id number] : 2000 From: Alban Oakes MD PCP: Dr. Kate Silva MD Status: REG ER Study: CTA Chst, Abd, Pel W and/or WO Date of Exam: 0 10/28/24 Exam# [id number] Ordering Dr: Julianna Hughes DO PROCEDURE: CTA [...] abdomen or pelvis as above. Reading Location: [facility] CC: Dr. Kate Silva MD; Dr. Julianna Hughes DO Software Validation Technician: Signed Normal [facility] Carbon dioxide, total [Moles /volume] in Central venous bloodOrdered By: Julianna Hughes on 10-28-2024 CO2 [Moles/Vol] 20.9 mmol/L Low 21.0-32.0 [facility] Chloride assayOrdered By: Tracey Hughes on 10-28-2024 Chloride [Moles/Vol] 100 mmol/L 98-108 [facility] Emergency Department Summary on 10-28-2024 Emergency Department Summary [facility] Medical Records Department [address] [place] [address] Emergency Department Summary 10/28/24 MR#: [id number] Acct: [id number] Name: KATIE FORDE Rep #: [id number] : 2000 23 From: Julianna Hughes DO PCP: Dr. Kate [...] and called EMS. She denies increase stressors. PFSH PFSH Medical History Depersonalization disorder Fatty liver Smoker [...] and Inspectio (more content not included)... Normal [facility] Eosinophil percentageOrdered By: Julianna Hughes on 10-28-2024 Eosinophils/100 WBC (Bld) 0.2 % 0-5 [facility] Erythrocyte distribution wid th ratioOrdered By: Julianna Hughes on 10-28-2024 Erythrocyte distribution width (RBC) [Ratio] 12.1 % 11.6-14.6 [facility] Erythrocyte distribution wid th standard deviationOrdered By: Julianna Hughes on 10-28-2024 Erythrocyte distribution width (RBC) [Ratio] 38.9 fl 35.1-43.9 [facility] Glomerular filtration rate ( GFR) estimation/1.73 sq m using serum, plasma, or whole bOrdered By: Julianna Hughes on 10-28-2024 GFR/1.73 sq M.predicted among non-blacks MDRD (S/P/Bld) [Vol rate/Area] 100 mL/min/{1.73_m2} >60 [facility] Comment on above: mL/min/1.73m2 CKD-EP I Creatinine Equation (2020) Hematocrit Auto (Bld) [Volum e fraction]Ordered By: Julianna Hughes on 10-28-2024 Hematocrit (Bld) [Volume fraction] 41.2 % 37-47 [facility] Hemoglobin measurementOrdere d By: Julianna Hughes on 10-28-2024 Hemoglobin (Bld) [Mass/Vol] 14.5 g/dL 12.0-15.0 [facility] Immature granulocytes/100 WB C Auto (Bld)Ordered By: Julianna Hughes on 10-28-2024 Immature granulocytes/100 WBC (Bld) 0.500 % 0.0-0.9 [facility] Comment on above: IG% - Immature Granu locytes (promyelocytes, myelocytes and metamyelocytes) > 1% indicates that a LEFT SHIFT is Present. MCV (mean corpuscular volume ) determinationOrdered By: Julianna Hughes on 10-28-2024 MCV (RBC) [Entitic vol] 87.7 fL 81-99 [facility] Mean corpuscular hemoglobin (MCH) determinationOrdered By: Julianna Hughes on 10-28-2024 MCH (RBC) [Entitic mass] 30.9 pg 27.0-32.0 [facility] Mean corpuscular hemoglobin concentration (MCHC) determinationOrdered By: Julianna Hughes on 10-28-2024 MCHC (RBC) [Mass/Vol] 35.2 g/dL 32-36 [facility] Mean platelet volume determi nationOrdered By: Julianna Hughes on 10-28-2024 Platelet mean volume (Bld) [Entitic vol] 10.9 fL 6.2-12.0 [facility] Monocyte percentageOrdered B y: Julianna Hughes on 10-28-2024 Monocytes/100 WBC (Bld) 4.8 % 0-10 [facility] Neutrophil percentageOrdered By: Julianna Hughes on 10-28-2024 Neutrophils/100 WBC (Bld) 80.3 % High 47-70 [facility] Nucleated red blood cell per centageOrdered By: Julianna Hughes on 10-28-2024 Nucleated RBC/100 WBC (Bld) [Ratio] 0 % 0-5 [facility] Platelet countOrdered By: Tracey Hughes on 10-28-2024 Platelets (Bld) [#/Vol] 399 10*3/uL 150-450 [facility] Potassium measurement (mass/ volume)Ordered By: Julianna Hughes on 10-28-2024 Potassium (Unsp spec) [Mass/Vol] 3.8 mmol/L 3.3-5.1 [facility] RBC Auto (Bld) [#/Vol]Ordere d By: Julianna Hughes on 10-28-2024 RBC (Bld) [#/Vol] 4.70 10*6/uL 4.2-5.4 [facility] Serum beta-hCG test, qualita tiveOrdered By: Julianna Hughes on 10-28-2024 Beta HCG ( test) Ql Negative [facility] Serum creatinine measurement (mass/volume)Ordered By: Julianna Hughes on 10-28-2024 Creatinine [Mass/Vol] 0.83 mg/dL 0.70-1.20 [facility] Serum glucose measurement (m ass/volume)Ordered By: Julianna Hughes on 10-28-2024 Glucose [Mass/Vol] 94 mg/dL 70-99 [facility] Serum or plasma calcium lawrence urement (mass/volume)Ordered By: Julianna Hughes on 10-28-2024 Calcium [Mass/Vol] 8.9 mg/dL 7.6-11.0 [facility] Serum or plasma urea nitroge n measurement (mass/volume)Ordered By: Julianna Hughes on 10-28-2024 Urea nitrogen [Mass/Vol] 9 mg/dL 4-19 [facility] Sodium levelOrdered By: Christina Hughes on 10-28-2024 Sodium [Moles/Vol] 135 mmol/L 133-145 [facility] White blood cell (WBC) count Ordered By: Julianna Hughes on 10-28-2024 WBC (Bld) [#/Vol] 20.8 10*3/uL High 4.4-11.0 [facility] CARY BY IFA WITH REFLEXon Nuclear Ab Ql (S) Negative Normal Negative [facility] Comment on above: Order Comment: Speci men Type: BLOOD SPECIMENOrdering Facility: [facility] Address: [address] [place] [address] Result Comment: Anti -nuclear antibody test is used as an aid in diagnosis of systemic autoimmune diseases. Where positive and clinically warranted, follow-up using disease-specific testing is recommended. Low positive titers are not uncommon with advanced age, certain chronic infections, and malignancies among others. Test methodology: Indirect fluorescence immunoassay (IFA) using HEp-2 cells. Performed By: #### A NAIFR ####[facility] LABCLIA [id number] [place] [address] [place] CBC W Auto Differential pane l (Bld)on 10-26-2024 Basophils (Bld) [#/Vol] 0.13 10*3/uL High <0.11 [facility] Comment on above: Order Comment: Speci men Type: BLOOD SPECIMENOrdering Facility: [facility] Address: [address] [place] [address] Performed By: #### 5 7021-8, 4537-7 ####[facility] LABCLIA [id number] [place] [address] [place] Basophils/100 WBC (Bld) 0.9 % Normal [facility] Comment on above: Order Comment: Speci men Type: BLOOD SPECIMENOrdering Facility: [facility] Address: [address] [place] [address] Performed By: #### 5 7021-8, 4537-7 ####[facility] LABIA [id number] [place] [address] [place] Differential cell count method Nom (Bld) Auto Normal [facility] Comment on above: Order Comment: Speci men Type: BLOOD SPECIMENOrdering Facility: [facility] Address: [address] [place] [address] Performed By: #### 5 7021-8, 7-7 ####[facility] LABCLIA [id number] [place] [address] [place] Eosinophils (Bld) [#/Vol] 0.10 10*3/uL Normal <0.46 [facility] Comment on above: Order Comment: Speci men Type: BLOOD SPECIMENOrdering Facility: [facility] Address: [address] [place] [address] Performed By: #### 5 7021-8, 4536-7 ####[facility] LABCLIA [id number] [place] [address] [place] Eosinophils/100 WBC (Bld) 0.7 % Normal [facility] Comment on above: Order Comment: Speci men Type: BLOOD SPECIMENOrdering Facility: [facility] Address: [address] [place] [address] Performed By: #### 5 7021-8, 4536-7 ####[facility] LABCLIA [id number] [place] [address] [place] Erythrocyte distribution width (RBC) [Ratio] 12.4 % Normal 11.5-15.0 [facility] Comment on above: Order Comment: Speci men Type: BLOOD SPECIMENOrdering Facility: [facility] Address: [address] [place] [address] Performed By: #### 5 7021-8, 4536-7 ####[facility] LABCLIA [id number] [place] [address] [place] Hematocrit (Bld) [Volume fraction] 41.7 % Normal 36.0-46.0 [facility] Comment on above: Order Comment: Speci men Type: BLOOD SPECIMENOrdering Facility: [facility] Address: [address] [place] [address] Performed By: #### 5 7021-8, 7-7 ####[facility] LABCLIA [id number] [place] [address] [place] Hemoglobin (Bld) [Mass/Vol] 14.2 g/dL Normal 11.5-15.5 [facility] Comment on above: Order Comment: Speci men Type: BLOOD SPECIMENOrdering Facility: [facility] Address: [address] [place] [address] Performed By: #### 5 7021-8, 4537-7 ####[facility] LABCLIA [id number] [place] [address] [place] Immature granulocytes (Bld) [#/Vol] 0.04 10*3/uL Normal <0.10 [facility] Comment on above: Order Comment: Speci men Type: BLOOD SPECIMENOrdering Facility: [facility] Address: [address] [place] [address] Performed By: #### 5 7021-8, 4537-7 ####[facility] LABCLIA [id number] [place] [address] [place] Immature granulocytes/100 WBC (Bld) 0.3 % Normal [facility] Comment on above: Order Comment: Speci men Type: BLOOD SPECIMENOrdering Facility: [facility] Address: [address] [place] [address] Performed By: #### 5 7021-8, 4537-7 ####[facility] LABCLIA [id number] [place] [address] [place] Lymphocytes (Bld) [#/Vol] 3.39 10*3/uL Normal 1.00-4.00 [facility] Comment on above: Order Comment: Speci men Type: BLOOD SPECIMENOrdering Facility: [facility] Address: [address] [place] [address] Performed By: #### 5 7021-8, 4537-7 ####[facility] LABCLIA [id number] [place] [address] [place] Lymphocytes/100 WBC (Bld) 23.4 % Normal [facility] Comment on above: Order Comment: Speci men Type: BLOOD SPECIMENOrdering Facility: [facility] Address: [address] [place] [address] Performed By: #### 5 7021-8, 4537-7 ####[facility] LABCLIA [id number] [place] [address] [place] MCH (RBC) [Entitic mass] 30.4 pg Normal 26.0-34.0 [facility] Comment on above: Order Comment: Speci men Type: BLOOD SPECIMENOrdering Facility: [facility] Address: [address] [place] [address] Performed By: #### 5 7021-8, 453-7 ####[facility] LABCLIA [id number] [place] [address] [place] MCHC (RBC) [Mass/Vol] 34.1 g/dL Normal 30.5-36.0 [facility] Comment on above: Order Comment: Speci men Type: BLOOD SPECIMENOrdering Facility: [facility] Address: [address] [place] [address] Performed By: #### 5 7021-8, 4537-7 ####[facility] LABCLIA [id number] [place] [address] [place] MCV (RBC) [Entitic vol] 89.3 fL Normal 80.0-100.0 [facility] Comment on above: Order Comment: Speci men Type: BLOOD SPECIMENOrdering Facility: [facility] Address: [address] [place] [address] Performed By: #### 5 7021-8, 4536-7 ####[facility] LABCLIA [id number] [place] [address] [place] Monocytes (Bld) [#/Vol] 0.94 10*3/uL High <0.87 [facility] Comment on above: Order Comment: Speci men Type: BLOOD SPECIMENOrdering Facility: [facility] Address: [address] [place] [address] Performed By: #### 5 7021-8, 4536-7 ####[facility] LABCLIA [id number] [address] [place] [address] [place] Monocytes/100 WBC (Bld) 6.5 % Normal [facility] Comment on above: Order Comment: Speci men Type: BLOOD SPECIMENOrdering Facility: [facility] Address: [address] [place] [address] Performed By: #### 5 7021-8, 4536-7 ####[facility] LABCLIA [id number] [address], [place] [address] [place] Neutrophils (Bld) [#/Vol] 9.90 10*3/uL High 1.45-7.50 [facility] Comment on above: Order Comment: Speci men Type: BLOOD SPECIMENOrdering Facility: [facility] Address: [address] [place] [address] Performed By: #### 5 7021-8, 7 ####[facility] LABCLIA [id number] [address], [place] [address] [place] Neutrophils/100 WBC (Bld) 68.2 % Normal [facility] Comment on above: Order Comment: Speci men Type: BLOOD SPECIMENOrdering Facility: [facility] Address: [address] [place] [address] Performed By: #### 5 7021-8, 4536-7 ####[facility] LABCLIA [id number] [place] [address] [place] Nucleated RBC (Bld) [#/Vol] 10*3/uL Normal <0.01 [facility] Comment on above: Order Comment: Speci men Type: BLOOD SPECIMENOrdering Facility: [facility] Address: [address] [place] [address] Performed By: #### 5 7021-8, 4536-7 ####[facility] LABCLIA [id number] [place] [address] [place] Nucleated RBC/100 WBC (Bld) [Ratio] 0.0 /100 WBC Normal [facility] Comment on above: Order Comment: Speci men Type: BLOOD SPECIMENOrdering Facility: [facility] Address: [address] [place] [address] Performed By: #### 5 7021-8, 4536-7 ####[facility] LABCLIA [id number] [place] [address] [place] Platelet mean volume (Bld) [Entitic vol] 10.1 fL Normal 9.0-12.7 [facility] Comment on above: Order Comment: Speci men Type: BLOOD SPECIMENOrdering Facility: [facility] Address: [address] [place] [address] Performed By: #### 5 7021-8, 7 ####[facility] LABCLIA [id number] [place] [address] [place] Platelets (Bld) [#/Vol] 515 10*3/uL High 150-400 [facility] Comment on above: Order Comment: Speci men Type: BLOOD SPECIMENOrdering Facility: [facility] Address: [address] [place] [address] Performed By: #### 5 7021-8, 7 ####[facility] LABIA [id number] [place] [id number] [place] RBC (Bld) [#/Vol] 4.67 10*6/uL Normal 3.90-5.20 [facility] Comment on above: Order Comment: Speci men Type: BLOOD SPECIMENOrdering Facility: [facility] Address: [address] [place] [address] Performed By: #### 5 7021-8, 4536-7 ####[facility] LABCLIA [id number] [facility]Scott [facility] [place] [address] [place] WBC (Bld) [#/Vol] 14.50 10*3/uL High 3.70-11.00 [facility] Comment on above: Order Comment: Speci men Type: BLOOD SPECIMENOrdering Facility: [facility] Address: [address] [place] [address] Performed By: #### 5 7021-8, 4537-7 ####[facility] LABCLIA [id number] [facility]ENTERScott [facility]ERK [address] [place] CNOVon 10-26-2024 CNOV Office Visit (INTMWS ) ----- KATIE FORDE ([id number]) 2000 F Date Time Provider Department 10/26/24 2:00 PM SHER [place] INTMWS During your visit today, we recorded the following information about you: Pulse Respiration Blood pressure Weight 96/minute 16/minute 116/70 133.1 kg Sher Hollingsworth APRN.CRIBBER 10/26/2024 2:37 PM Signed SUBJECTIVE Katieluz Forde is a 23 year old female [...] drained by her current situation. Recording using INCIDE software for draft documentation of the visit was discussed with the patient/authorized brand representative; all questions welcomed and answered. Patient/authorized brand representative agreed to proceed Her medications were [...] day. dul (more content not included)... Normal [facility] ESR Westergren method (Bld) [Velocity]on 10-26-2024 ESR (Bld) [Velocity] 29 mm/h High 0-20 [facility] Comment on above: Order Comment: Speci men Type: BLOOD SPECIMENOrdering Facility: [facility] Address: [address] [place] [address] Performed By: #### 5 7021-8, 4537-7 ####[facility] LABCLIA [id number] [place] [address] [place] T3Free SerPl-mCncon 10-27-19 25 Free T3 [Mass/Vol] 3.4 pg/mL Normal 2.3-4.1 [facility] Comment on above: Order Comment: Lore buitrago Type: BLOOD SPECIMENOrdering Facility: [facility] Address: [address] [place] [address] Performed By: #### 2 132-9, 3051-0, 3024-7, 3016-3 ####[facility] LABIA [id number] [place] [address] [place] T4 Free SerPl-mCncon 025 Free T4 [Mass/Vol] 1.0 ng/dL Normal 0.9-1.7 [facility] Comment on above: Order Comment: Lore buitrago Type: BLOOD SPECIMENOrdering Facility: [facility] Address: [address] [place] [address] Performed By: #### 2 132-9, 3051-0, 3024-7, 3016-3 ####[facility] LABIA [id number] [place] [address] [place] TSH SerPl-aCncon 10-26-2024 TSH Qn 0.844 m[IU]/L Normal 0.270-4.200 [facility] Comment on above: Order Comment: Lore buitrago Type: BLOOD SPECIMENOrdering Facility: [facility] Address: [address] [place] [address] Result Comment: If t he patient is , TSH reference range varies by gestational period: First Trimester (weeks 9-12): 0.180-2.990 mIU/L Second Trimester: 0.110-3.980 mIU/L Third Trimester: 0.480-4.710 mIU/L Rolando Cheatham et al. A Practical Approach for the Verifications and Determination of Site- and Trimester-Specific Reference Intervals for Thyroid Function tests in . Thyroid, 2019:29:3:412-420. Wiliam Escobar et al. 2017 Guidelines of the [place] Thy[employer] for the Diagnosis and Management of Thyroid Disease during and the . Thyroid, 2017:27:3:315-389. Performed By: #### 2 132-9, 3051-0, 3024-7, 3016-3 ####[facility] LABIA [id number] [address] [address] [place] VITAMIN B1 (THIAMINE), WHOLE BLOODon 10-26-2024 Thiamine (Bld) [Moles/Vol] 191.8 nmol/L Normal 84.3-213.3 [facility] Comment on above: Order Comment: Speci men Type: BLOOD SPECIMENOrdering Facility: [facility] Address: [address] [place] [address] Result Comment: This assay measures the concentration of thiamine diphosphate (TDP), the primary active form of vitamin B1. Approximately 90 percent of vitamin B1 present in whole blood is TDP. Thiamine and thiamine monophosphate, which comprise the remaining 10 percent, are not measured. This test was developed, and its performance characteristics determined by the [facility] Department of Pathology and Laboratory Medicine. It has not been cleared or approved by the FDA. The [facility] Department of Pathology and Laboratory Medicine is regulated under CLIA as qualified to perform high-complexity testing. This test is used for clinical purposes. It should not be regarded as investigational or for research. Performed By: #### B 1WB ####[facility] LABIA [id number] [address] [address] [place] VITAMIN B6/PYRIDOXINon 10-26 VITAMIN B6 34.4 nmol/L Normal 20.0-125.0 [facility] Comment on above: Order Comment: Speci men Type: BLOOD SPECIMENOrdering Facility: [facility] Address: [address] [place] [address] Result Comment: INTE RPRETIVE INFORMATION: Vitamin B6 (Pyridoxal 5-Phosphate) Pyridoxal 5'-phosphate measured in a specimen collected following an 8-hour or overnight fast accurately indicates vitamin B6 nutritional status. Non-fasting specimen concentration reflects recent vitamin intake. This test was developed and its performance characteristics determined by [facility]. It has not been cleared or approved by the [place] Food and Drug Administration. This test was performed in a CLIA certified laboratory and is intended for clinical purposes. Performed By: [facility] [address] [place] [address] Rewards Consultant: Yared Curry MD, PhD CLIA Number: [id number] Performed By: #### V ITB6 ####[facility] LABORATORIESCLIA [id number] [place] [address] Vit B12 [facility] 025 Cobalamin (Vitamin B12) [Mass/Vol] 467 pg/mL Normal 232-1245 [facility] Comment on above: Order Comment: Speci men Type: BLOOD SPECIMENOrdering Facility: [facility] Address: [address] [place] [address] Performed By: #### 2 132-9, 3051-0, 3024-7, 3016-3 ####[facility] LABCLIA [id number] [address] STATES OF [facility] 12 Lead EKGon 10-25-2024 12 Lead EKG [facility] [address] [place] [address] 12 Lead EKG 10/25/24 0052 MR#: [id number] Acct: [id number] Name: KATIE FORDE Rep #: [id number] : 2000 23 From: Yuly Aquino MD Attending Dr: Status: [...] Sinus tachycardia Otherwise normal ECG Confirmed by MILES MEDRANO, NIMCO ([id number]), production editor BRANDAN VAZQUEZ ([id number]) on 10/27/2024 11:57:31 AM Referred By: Confirmed By: NIMCO AQUINO MD 10/27/24 1157 Date Yuly Aquino MD CC: Dr. Pérez Ren MD; Dr. Kate Silva MD Signed Normal [facility] Absolute lymphocyte countOrd ered By: Pérez Ren on 10-25-2024 Lymphocytes Auto (Unsp spec) [#/Vol] 4.49 10*3/uL 0.83-4.51 [facility] Absolute neutrophil countOrd ered By: Pérez Ren on 10-25-2024 Neutrophils (Bld) [#/Vol] 9.8 10*3/uL High 2.0-7.7 [facility] Anion gap in Serum or Plasma Ordered By: Pérez Ren on 10-25-2024 Anion gap [Moles/Vol] 13 mmol/L 5-15 [facility] Automated lymphocyte count a s percentage of total leukocytesOrdered By: Pérez Ren on 10-25-2024 Lymphocytes/100 WBC Auto (Unsp spec) 28.5 % 19-41 [facility] BUN/creatinine ratioOrdered By: Pérez Ren on 10-25-2024 Urea nitrogen/Creatinine [Mass ratio] 11.6 mg/mg 10-20 [facility] Basophil percentageOrdered B y: Pérez Ren on 10-25-2024 Basophils/100 WBC (Bld) 0.6 % 0-1 [facility] Beta HCG ( test) Ql Ordered By: Pérez Ren on 10-25-2024 Serum Test, Qualitative Negative [facility] Bilirubin, totalOrdered By: Pérez Ren on 10-25-2024 Bilirubin [Mass/Vol] 0.26 mg/dL 0.00-1.30 [facility] CBC W/Diff, Automatedon 09-29 Absolute Lymph 4.49 X10 3/uL Normal 0.83-4.51 [facility] Comment on above: Performed By: #### L 500.4050, L700.6800, L100.0100, L501.5200 ####[facility] [address] [place], [address] Absolute Neut 9.8 X10 3/uL High 2.0-7.7 [facility] Comment on above: Performed By: #### L 500.4050, L700.6800, L100.0100, L501.5200 ####[facility] [address] [place], [address] Basophils/100 WBC (Bld) 0.6 % Normal 0-1 [facility] Comment on above: Performed By: #### L 500.4050, L700.6800, L100.0100, L501.5200 ####[facility] [address] [place], [address] Eosinophils/100 WBC (Bld) 1.0 % Normal 0-5 [facility] Comment on above: Performed By: #### L 500.4050, L700.6800, L100.0100, L501.5200 ####[facility] [address] [place], [address] Erythrocyte distribution width (RBC) [Ratio] 12.5 % Normal 11.6-14.6 [facility] Comment on above: Performed By: #### L 500.4050, L700.6800, L100.0100, L501.5200 ####[facility] [address] [place], [address] Hematocrit (Bld) [Volume fraction] 43.9 % Normal 37-47 [facility] Comment on above: Performed By: #### L 500.4050, L700.6800, L100.0100, L501.5200 ####[facility] [address] [place], [address] Hemoglobin (Bld) [Mass/Vol] 15.3 g/dL High 12.0-15.0 [facility] Comment on above: Performed By: #### L 500.4050, L700.6800, L100.0100, L501.5200 ####[facility] [address] [place], [address] IG% 0.400 Normal 0.0-0.9 [facility] Comment on above: Result Comment: IG% - Immature Granulocytes (promyelocytes, myelocytes and metamyelocytes) > 1% indicates that a LEFT SHIFT is Present. Performed By: #### L 500.4050, L700.6800, L100.0100, L501.5200 ####[facility] [address] [place], [address] Lymphocytes/100 WBC (Bld) 28.5 % Normal 19-41 [facility] Comment on above: Performed By: #### L 500.4050, L700.6800, L100.0100, L501.5200 ####[facility] [address] [place], [address] MCH (RBC) [Entitic mass] 30.6 pg Normal 27.0-32.0 [facility] Comment on above: Performed By: #### L 500.4050, L700.6800, L100.0100, L501.5200 ####[facility] [address] [place], [address] MCHC (RBC) [Mass/Vol] 34.9 g/dL Normal 32-36 [facility] Comment on above: Performed By: #### L 500.4050, L700.6800, L100.0100, L501.5200 ####[facility] [address] [place], [address] MCV (RBC) [Entitic vol] 87.8 fL Normal 81-99 [facility] Comment on above: Performed By: #### L 500.4050, L700.6800, L100.0100, L501.5200 ####[facility] [address] [place], [address] Monocytes/100 WBC (Bld) 7.2 % Normal 0-10 [facility] Comment on above: Performed By: #### L 500.4050, L700.6800, L100.0100, L501.5200 ####[facility] [address] [place], [address] Neutrophils/100 WBC (Bld) 62.3 % Normal 47-70 [facility] Comment on above: Performed By: #### L 500.4050, L700.6800, L100.0100, L501.5200 ####[facility] [address] [place], [address] Nucleated RBC (Bld) [#/Vol] 0 10*3/uL Normal 0-5 [facility] Comment on above: Performed By: #### L 500.4050, L700.6800, L100.0100, L501.5200 ####[facility] [address] [place], [address] Platelet mean volume (Bld) [Entitic vol] 9.7 fL Normal 6.2-12.0 [facility] Comment on above: Performed By: #### L 500.4050, L700.6800, L100.0100, L501.5200 ####[facility] [address] [place], [address] Platelets (Bld) [#/Vol] 503 10*3/uL High 150-450 [facility] Comment on above: Performed By: #### L 500.4050, L700.6800, L100.0100, L501.5200 ####[facility] [address] [place], [address] RBC (Bld) [#/Vol] 5.00 10*6/uL Normal 4.2-5.4 [facility] Comment on above: Performed By: #### L 500.4050, L700.6800, L100.0100, L501.5200 ####[facility] [address] [place], [address] RDW SD 40.1 fl Normal 35.1-43.9 [facility] Comment on above: Performed By: #### L 500.4050, L700.6800, L100.0100, L501.5200 ####[facility] [address] [place], [address] WBC (Bld) [#/Vol] 15.8 10*3/uL High 4.4-11.0 [facility] Comment on above: Performed By: #### L 500.4050, L700.6800, L100.0100, L501.5200 ####[facility] [address] [place], [address] Carbon dioxide, total [Moles /volume] in Central venous bloodOrdered By: Pérez Ren on 10-25-2024 CO2 [Moles/Vol] 20.5 mmol/L Low 21.0-32.0 [facility] Chest 1 View (Portable)on Chest 1 View (Portable) [facility] Services [address] [place] [address] Chest 1 View (Portable) MR#: [id number] Acct: [id number] Name: KATIE FORDE Rep #: [id number] : 2000 F 23 From: Alban Oakes MD PCP: Dr. Kate Silva MD Status: [facility] ER Study: Chest 1 View (Portable) Date of Exam: 10/25/24 Exam# [id number] Ordering Dr: Pérez Ren MD PROCEDURE: CHEST [...] No evidence of acute disease. Reading Location: [id number] CC: Dr. Pérez Ren MD; Dr. Kate Silva MD Software Validation Technician: Signed Normal [facility] Chloride assayOrdered By: Norman Ren on 10-25-2024 Chloride [Moles/Vol] 103 mmol/L 98-108 [facility] Comprehensive Metabolic Prof ilon 10-25-2024 Albumin [Mass/Vol] 4.2 g/dL Normal 3.5-5.0 [facility] Comment on above: Performed By: #### L 500.4050, L700.6800, L100.0100, L501.5200 ####[facility] [address] [place], [address] Albumin/Globulin [Mass ratio] 1.1 {ratio} Normal 0.9-2.4 [facility] Comment on above: Performed By: #### L 500.4050, L700.6800, L100.0100, L501.5200 ####[facility] [address] [place], [address] ALK PHOS 80 U/L Normal 35-104 [facility] Comment on above: Performed By: #### L 500.4050, L700.6800, L100.0100, L501.5200 ####[facility] [address] [place], [address] ALT [Catalytic activity/Vol] 44 U/L High <=34 [facility] Comment on above: Performed By: #### L 500.4050, L700.6800, L100.0100, L501.5200 ####[facility] [address] [place], [address] AST [Catalytic activity/Vol] 36 U/L High <=31 [facility] Comment on above: Performed By: #### L 500.4050, L700.6800, L100.0100, L501.5200 ####[facility] [address] [place], [address] Bilirubin [Mass/Vol] 0.26 mg/dL Normal 0.00-1.30 [facility] Comment on above: Performed By: #### L 500.4050, L700.6800, L100.0100, L501.5200 ####[facility] [address] [place], [address] BUN/CRE 11.6 RATIO Normal 10-20 [facility] Comment on above: Performed By: #### L 500.4050, L700.6800, L100.0100, L501.5200 ####[facility] [address] [place], [address] Calcium [Mass/Vol] 8.7 mg/dL Normal 7.6-11.0 [facility] Comment on above: Performed By: #### L 500.4050, L700.6800, L100.0100, L501.5200 ####[facility] [address] [place], [address] Chloride [Moles/Vol] 103 mmol/L Normal 98-108 [facility] Comment on above: Performed By: #### L 500.4050, L700.6800, L100.0100, L501.5200 ####[facility] [address] [place], [address] CO2 [Moles/Vol] 20.5 mmol/L Low 21.0-32.0 [facility] Comment on above: Performed By: #### L 500.4050, L700.6800, L100.0100, L501.5200 ####[facility] [address] [place], [address] Creatinine [Mass/Vol] 0.77 mg/dL Normal 0.70-1.20 [facility] Comment on above: Performed By: #### L 500.4050, L700.6800, L100.0100, L501.5200 ####[facility] [address] [place], [address] ECRCL 174.27 ml/min Normal 50-250 [facility] Comment on above: Performed By: #### L 500.4050, L700.6800, L100.0100, L501.5200 ####[facility] [address] [place], [address] GAP 13 Normal 5-15 [facility] Comment on above: Performed By: #### L 500.4050, L700.6800, L100.0100, L501.5200 ####[facility] [address] [place], [address] GFR/1.73 sq M.predicted among non-blacks MDRD (S/P/Bld) [Vol rate/Area] 109 mL/min/{1.73_m2} Normal >60 [facility] Comment on above: Result Comment: mL/m in/1.73m2 CKD-EPI Creatinine Equation (2020) Performed By: #### L 500.4050, L700.6800, L100.0100, L501.5200 ####[facility] [address] [place], [address] Globulin (S) [Mass/Vol] 3.8 g/dL Normal 2.2-4.2 [facility] Comment on above: Performed By: #### L 500.4050, L700.6800, L100.0100, L501.5200 ####[facility] [address] [place], [address] Glucose [Mass/Vol] 105 mg/dL High 70-99 [facility] Comment on above: Performed By: #### L 500.4050, L700.6800, L100.0100, L501.5200 ####[facility] [address] [place], [address] Potassium [Moles/Vol] 3.5 mmol/L Normal 3.3-5.1 [facility] Comment on above: Performed By: #### L 500.4050, L700.6800, L100.0100, L501.5200 ####[facility] [address] [place], [address] Sodium [Moles/Vol] 137 mmol/L Normal 133-145 [facility] Comment on above: Performed By: #### L 500.4050, L700.6800, L100.0100, L501.5200 ####[facility] [address] [place], [address] T PROT 8.0 g/dL Normal 5.9-8.4 [facility] Comment on above: Performed By: #### L 500.4050, L700.6800, L100.0100, L501.5200 ####[facility] [address] [place], [address] Urea nitrogen [Mass/Vol] 9 mg/dL Normal 4-19 [facility] Comment on above: Performed By: #### L 500.4050, L700.6800, L100.0100, L501.5200 ####[facility] [address] [place], [address] Emergency Department Summary on 10-25-2024 Emergency Department Summary [facility] Medical Records Department [address] [place] [address] Emergency Department Summary 10/25/24 MR#: [id number] Acct: [id number] Name: KATIE FORDE Rep #: [id number] : 2000 From: Pérez Ren MD PCP: [...] shortness of breath and lightheadedness as well. [facility] Medical History Depersonalization disorder Fatty liver Smoker [...] tachycardia v (more content not included)... Normal [facility] Eosinophil percentageOrdered By: Pérez Ren on 10-25-2024 Eosinophils/100 WBC (Bld) 1.0 % 0-5 [facility] Erythrocyte distribution wid th (RBC) [Ratio]Ordered By: Pérez Ren on 10-25-2024 Erythrocyte distribution width (RBC) [Entitic vol] 40.1 fL 35.1-43.9 [facility] Erythrocyte distribution wid th ratioOrdered By: Pérez Ren on 10-25-2024 Erythrocyte distribution width (RBC) [Ratio] 12.5 % 11.6-14.6 [facility] Erythrocyte distribution wid th standard deviationOrdered By: Pérez Ren on 10-25-2024 Erythrocyte distribution width (RBC) [Ratio] 40.1 fl 35.1-43.9 [facility] Estimation of creatinine nicole aranceOrdered By: Pérez Ren on 10-25-2024 Estimated Creatinine Clearance Calc 174.27 ml/min 50-250 [facility] GFR/1.73 sq M.predicted tiesha g non-blacks MDRD (S/P/Bld) [Vol rate/Area]Ordered By: Pérez Ren on 10-25-2024 Estimated GFR (MDRD) Non-Af Amer 109 >60 [facility] Comment on above: mL/min/1.73m2 CKD-EP I Creatinine Equation (2020) Glomerular filtration rate ( GFR) estimation/1.73 sq m using serum, plasma, or whole bOrdered By: Pérez Ren on 10-25-2024 GFR/1.73 sq M.predicted among non-blacks MDRD (S/P/Bld) [Vol rate/Area] 109 mL/min/{1.73_m2} >60 [facility] Comment on above: mL/min/1.73m2 CKD-EP I Creatinine Equation (2020) Hematocrit Auto (Bld) [Volum e fraction]Ordered By: Pérez Ren on 10-25-2024 Hematocrit (Bld) [Volume fraction] 43.9 % 37-47 [facility] Hemoglobin measurementOrdere d By: Pérez Ren on 10-25-2024 Hemoglobin (Bld) [Mass/Vol] 15.3 g/dL High 12.0-15.0 [facility] Immature granulocytes/100 WB C Auto (Bld)Ordered By: Pérez Ren on 10-25-2024 Immature granulocytes/100 WBC (Bld) 0.400 % 0.0-0.9 [facility] Comment on above: IG% - Immature Granu locytes (promyelocytes, myelocytes and metamyelocytes) > 1% indicates that a LEFT SHIFT is Present. Laboratory - Chemistry and C hemistry - challengeOrdered By: Pérez Ren on 10-25-2024 AST [Catalytic activity/Vol] 36 U/L High <32 [facility] Lymphocytes Auto (Unsp spec) [#/Vol]Ordered By: Pérez Ren on 10-25-2024 Lymphocytes (Bld) [#/Vol] 4.49 10*3/uL 0.83-4.51 [facility] Lymphocytes/100 WBC Auto (Un sp spec)Ordered By: Pérez Ren on 10-25-2024 Lymphocytes/100 WBC (Bld) 28.5 % 19-41 [facility] MCV (mean corpuscular volume ) determinationOrdered By: Pérez Ren on 10-25-2024 MCV (RBC) [Entitic vol] 87.8 fL 81-99 [facility] Magnesiumon 10-25-2024 Magnesium [Mass/Vol] 2.3 mg/dL High 1.5-2.2 [facility] Comment on above: Performed By: #### L 500.4050, L700.6800, L100.0100, L501.5200 ####[facility] [address] [place], [place], [id number] Magnesium (Unsp spec) [Mass/ Vol]Ordered By: Pérez Ren on 10-25-2024 Magnesium [Mass/Vol] 2.3 mg/dL High 1.5-2.2 [facility] Magnesium measurement (mass/ volume)Ordered By: Pérez Ren on 10-25-2024 Magnesium (Unsp spec) [Mass/Vol] 2.3 mg/dL High 1.5-2.2 [facility] Mean corpuscular hemoglobin (MCH) determinationOrdered By: Pérez Ren on 10-25-2024 MCH (RBC) [Entitic mass] 30.6 pg 27.0-32.0 [facility] Mean corpuscular hemoglobin concentration (MCHC) determinationOrdered By: Pérez Ren on 10-25-2024 MCHC (RBC) [Mass/Vol] 34.9 g/dL 32-36 [facility] Mean platelet volume determi nationOrdered By: Pérez Ren on 10-25-2024 Platelet mean volume (Bld) [Entitic vol] 9.7 fL 6.2-12.0 [facility] Monocyte percentageOrdered B y: Pérez Ren on 10-25-2024 Monocytes/100 WBC (Bld) 7.2 % 0-10 [facility] Neutrophil percentageOrdered By: Pérez Ren on 10-25-2024 Neutrophils/100 WBC (Bld) 62.3 % 47-70 [facility] Nucleated red blood cell per centageOrdered By: Pérez Ren on 10-25-2024 Nucleated RBC/100 WBC (Bld) [Ratio] 0 % 0-5 [facility] Platelet countOrdered By: Norman Ren on 10-25-2024 Platelets (Bld) [#/Vol] 503 10*3/uL High 150-450 [facility] Potassium (Unsp spec) [Mass/ Vol]Ordered By: Pérez Ren on 10-25-2024 Potassium [Moles/Vol] 3.5 mmol/L 3.3-5.1 [facility] Potassium measurement (mass/ volume)Ordered By: Pérez Ren on 10-25-2024 Potassium (Unsp spec) [Mass/Vol] 3.5 mmol/L 3.3-5.1 [facility] ,Serum,hCG Quali.on 10-25-2024 HCG, SERUM QUAL Negative Normal [facility] Comment on above: Performed By: #### L 500.4050, L700.6800, L100.0100, L501.5200 ####[facility] [address] [place], [address] RBC Auto (Bld) [#/Vol]Ordere d By: Pérez Ren on 10-25-2024 RBC (Bld) [#/Vol] 5.00 10*6/uL 4.2-5.4 [facility] Serum beta-hCG test, qualita tiveOrdered By: Pérez Ren on 10-25-2024 Beta HCG ( test) Ql Negative [facility] Serum creatinine measurement (mass/volume)Ordered By: Pérez Ren on 10-25-2024 Creatinine [Mass/Vol] 0.77 mg/dL 0.70-1.20 [facility] Serum globulin measurementOr dered By: Pérez Ren on 10-25-2024 Globulin (S) [Mass/Vol] 3.8 g/dL 2.2-4.2 [facility] Serum glucose measurement (m ass/volume)Ordered By: Pérez Ren on 10-25-2024 Glucose [Mass/Vol] 105 mg/dL High 70-99 [facility] Serum or plasma alanine nath otransferase (ALT) measurementOrdered By: Pérez Ren on 10-25-2024 ALT [Catalytic activity/Vol] 44 U/L High <35 [facility] Serum or plasma albumin lawrence urement (mass/volume)Ordered By: Pérez Ren on 10-25-2024 Albumin [Mass/Vol] 4.2 g/dL 3.5-5.0 [facility] Serum or plasma albumin/glob ulin mass ratioOrdered By: Pérez Ren on 10-25-2024 Albumin/Globulin [Mass ratio] 1.1 {ratio} 0.9-2.4 [facility] Serum or plasma alkaline charisse sphatase measurementOrdered By: Pérez Ren on 10-25-2024 ALP [Catalytic activity/Vol] 80 U/L 35-104 [facility] Serum or plasma calcium lawrence urement (mass/volume)Ordered By: Pérez Ren on 10-25-2024 Calcium [Mass/Vol] 8.7 mg/dL 7.6-11.0 [facility] Serum or plasma urea nitroge n measurement (mass/volume)Ordered By: Pérez Ren on 10-25-2024 Urea nitrogen [Mass/Vol] 9 mg/dL 4- [facility] Sodium levelOrdered By: Pérez Ren on 10-25-2024 Sodium [Moles/Vol] 137 mmol/L 133-145 [facility] Total proteinOrdered By: Teresita Ren on 10-25-2024 Protein [Mass/Vol] 8.0 g/dL 5.9-8.4 [facility] White blood cell (WBC) count Ordered By: Pérez Ren on 10-25-2024 WBC (Bld) [#/Vol] 15.8 10*3/uL High 4.4-11.0 [facility] CNOVon 10-20-2024 CNOV Office Visit (INTMWS ) ----- KATIE FORDE ([id number]) 2000 F Date Time Provider Department 10/20/24 10:00 AM KATE SILVA INTMWS During your visit today, we recorded the following information about you: Temperature Pulse Respiration Blood pressure 99 degrees 95/minute 14/minute 118/70 Weight Height Last Period 133.8 kg 1.829 m 09/28/24 Kate Silva MD 11/15/2024 12:43 AM Signed This note was created using [employer]. Subjective Katie Forde is a 23 year old female. Patient presents with: ED Follow-up: lightheadedness, fatgiue x 1 month Katie is a 23-year-old female with a history of leukocytosis, depression, and anxiety, presenting with persistent fatigue, lightheadedness, and a recent onset of cough. Katie reports persistent fatigue and lightheadedness since the beginning of September, which have led to three ER visits: two at [facility] and one at [facility]. She notes that the lightheadedness has improved, [...] count at 17.5. She notes that her knee bolter is not concerned about the elevated count, [...] anxiety and has been seen at the [facility] in the past. She denies any suicidal [...] for wheezing/shortnes (more content not included)... Normal [facility] .Auto Diffon 10-13-2024 Basophil, Absolute 0.2 10 3/mcL Normal 0.0-0.3 [facility] Comment on above: Performed By: #### A KRISHAN, CBC, TROPHS, GFR, ADIFF, MDW, BMP #### Aleks[facility] [place] [address] [place], [place] [address] Basophils/100 WBC (Bld) 0.9 % Normal 0.0-2.5 [facility] Comment on above: Performed By: #### A KRISHAN, CBC, TROPHS, GFR, ADIFF, BRETT, BMP #### [address] [address] Eosinophil, Absolute 0.1 10 3/mcL Normal 0.0-0.7 [facility] Comment on above: Performed By: #### A KRISHAN, CBC, TROPHS, GFR, ADIFF, W, BMP #### [address] [address] Eosinophils/100 WBC (Bld) 0.5 % Normal 0.0-6.0 [facility] Comment on above: Performed By: #### A KRISHAN, CBC, TROPHS, GFR, ADIFF, W, BMP #### [address] [address] Lymphocyte, Absolute 4.8 10 3/mcL High 0.9-4.3 [facility] Comment on above: Performed By: #### A KRISHAN, CBC, TROPHS, GFR, ADIFF, BRETT, BMP #### [address] [address] Lymphocytes/100 WBC (Bld) 27.5 % Normal 20.0-40.0 [facility] Comment on above: Performed By: #### A KRISHAN, CBC, TROPHS, GFR, ADIFF, BRETT, BMP #### [address] [address] Monocyte, Absolute 1.1 10 3/mcL Normal 0.1-1.4 [facility] Comment on above: Performed By: #### A KRISHAN, CBC, TROPHS, GFR, ADIFF, W, BMP #### [address] [address] Monocytes/100 WBC (Bld) 6.1 % Normal 2.0-13.0 [facility] Comment on above: Performed By: #### A KRISHAN, CBC, TROPHS, GFR, ADIFF, MDW, BMP #### [address] [address] Neutrophils/100 WBC (Bld) 65.0 % Normal 50.0-75.0 [facility] Comment on above: Performed By: #### A KRISHAN, CBC, TROPHS, GFR, ADIFF, MDW, BMP #### [address] [address] .GFRon 10-13-2024 Estimated Glomerular Filtration Rate 85 ml/min/1.73sqm Normal [facility] Comment on above: Result Comment: Stages of [...] CBC, TROPHS, GFR, ADIFF, MDW, BMP #### [address] [address] .MDWon 10-13-2024 Monocyte Distribution Width 18.05 Normal 0.00-20.00 [facility] Comment on above: Result Comment: For ED adult patients suspected of sepsis, MDW<=20.0 does not rule out sepsis or risk of sepsis Performed By: #### A KRISHAN, CBC, TROPHS, GFR, ADIFF, MDW, BMP #### [address] [address] .NEUABSon 10-13-2024 Neutrophil, Absolute 11.4 10 3/mcL High 2.3-8.1 A [facility] Comment on above: Performed By: #### A KRISHAN, CBC, TROPHS, GFR, ADIFF, MDW, BMP #### [address] [address] .Urinalysis Microscopic (AO) on 10-13-2024 UA Bacteria 1+ /hpf Abnormal [facility] Comment on above: Performed By: #### A KRISHAN, CBC, TROPHS, GFR, ADCLAU, W, BMP #### [address] [address] UA RBC 0-5 Abnormal None Seen [facility] Comment on above: Performed By: #### A KRISHAN, CBC, TROPHS, GFR, ADIFF, W, BMP #### [address] [address] UA Squam Epithelial 10-15 Abnormal None Seen [facility] Comment on above: Performed By: #### A KRISHAN, CBC, TROPHS, GFR, ADCLAU, W, BMP #### [place] [address] UA WBC 10-15 Abnormal None Seen [facility] Comment on above: Performed By: #### A KRISHAN, CBC, TROPHS, GFR, SURAJ, W, BMP #### [place] [address] BMPon 10-13-2024 BUN/Creatinine Ratio 13 ratio Normal 7-27 [facility] Comment on above: Performed By: #### A KRISHAN, CBC, TROPHS, GFR, ADCLAU, BRETT, BMP #### [address] [address] Calcium [Mass/Vol] 8.7 mg/dL Normal 8.4-10.2 [facility] Comment on above: Performed By: #### A KRISHAN, CBC, TROPHS, GFR, SURAJ, BRETT, BMP #### [place] [address] Chloride [Moles/Vol] 103 mmol/L Normal 98-107 [facility] Comment on above: Performed By: #### A KRISHAN, CBC, TROPHS, GFR, SURAJ, BRETT, BMP #### [address] [address] CO2 [Moles/Vol] 29 mmol/L Normal 22-29 [facility] Comment on above: Performed By: #### A KRISHAN, CBC, TROPHS, GFR, ADCLAU, BRETT, BMP #### [address] [address] Creatinine [Mass/Vol] 0.95 mg/dL Normal 0.55-1.02 [facility] Comment on above: Result Comment: Test ing performed on [employer] Dimension EXL analyzer using a modified kinetic Schuyler technique. Performed By: #### A KRISHAN, CBC, TROPHS, GFR, BRETT RUELAS, BMP #### [address] [address] Electrolyte Balance 6.0 mEq/L Normal 4.0-15.0 [facility] Comment on above: Performed By: #### A KRISHAN, CBC, TROPHS, GFR, BRETT RUELAS, BMP #### [address] [address] Glucose [Mass/Vol] 99 mg/dL Normal 70-105 [facility] Comment on above: Performed By: #### A KRISHAN, CBC, TROPHS, GFR, BRETT RUELAS, BMP #### [address] [address] Potassium [Moles/Vol] 3.7 mmol/L Normal 3.5-5.1 [facility] Comment on above: Performed By: #### A KRISHAN, CBC, TROPHS, GFR, ADCLAU, BRETT, BMP #### [address] [address] Sodium [Moles/Vol] 138 mmol/L Normal 136-145 [facility] Comment on above: Performed By: #### A KRISHAN, CBC, TROPHS, GFR, ADIFF, BRETT, BMP #### [address] [address] Urea nitrogen [Mass/Vol] 12 mg/dL Normal 7-18 [facility] Comment on above: Performed By: #### A KRISHAN, CBC, TROPHS, GFR, ADIFF, MDW, BMP #### [address] [address] CBCon 10-13-2024 Erythrocyte distribution width (RBC) [Ratio] 13.2 % Normal 11.5-15.5 [facility] Comment on above: Performed By: #### A KRISHAN, CBC, TROPHS, GFR, ADIFF, MDW, BMP #### [address] [address] Hematocrit (Bld) [Volume fraction] 39.8 % Normal 34.0-46.0 [facility] Comment on above: Performed By: #### A KRISHAN, CBC, TROPHS, GFR, ADIFF, MDW, BMP #### [address] [address] Hgb 13.6 G/dL Normal 12.0-16.0 [facility] Comment on above: Performed By: #### A KRISHAN, CBC, TROPHS, GFR, ADIFF, MDW, BMP #### [address] [address] MCH (RBC) [Entitic mass] 30.3 pg Normal 27.0-33.0 [facility] Comment on above: Performed By: #### A KRISHAN, CBC, TROPHS, GFR, ADIFF, MDW, BMP #### [address] [address] MCHC 34.1 G/dL Normal 32.0-36.0 [facility] Comment on above: Performed By: #### A KRISHAN, CBC, TROPHS, GFR, ADIFF, MDW, BMP #### [address] [address] MCV (RBC) [Entitic vol] 88.8 fL Normal 80.0-99.0 [facility] Comment on above: Performed By: #### A KRISHAN, CBC, TROPHS, GFR, ADIFF, MDW, BMP #### [address] [address] Platelet 459 10 3/mcL High 150-450 [facility] Comment on above: Performed By: #### A KRISHAN, CBC, TROPHS, GFR, BRETT RUELAS, BMP #### [address] [address] Platelet mean volume (Bld) [Entitic vol] 7.9 fL Normal 6.6-10.5 [facility] Comment on above: Performed By: #### A KRISHAN, CBC, TROPHS, GFR, BRETT RUELAS, BMP #### [address] [address] RBC 4.48 10 6/mcL Normal 4.10-5.30 [facility] Comment on above: Performed By: #### A KRISHAN, CBC, TROPHS, GFR, BRETT RUELAS, BMP #### [address] [address] WBC 17.5 10 3/mcL High 4.5-10.8 [facility] Comment on above: Performed By: #### A KRISHAN, CBC, TROPHS, GFR, BRETT RUELAS, BMP #### [address] [address] PREGUon 10-13-2024 HCG ( test) Ql (U) Negative Normal [facility] Comment on above: Performed By: #### U ADEREKMICJOLLY, PREGU #### [address] [address] test (u) int Not detected Invalid Interpretation Code [facility] Comment on above: Performed By: #### U A, UAMICAO, PREGU #### [address] [address] TROPHSon 10-13-2024 High Sensitivity Troponin I <4 Normal 0-51 [facility] Comment on above: Result Comment: High Sensitive Troponin I Reference Ranges: Female: 0-51 ng/L Male: 0-76 ng/L Testing performed on [employer] using a homogeneous sandwich chemiluminescent immunoassay based on [employer] technology. Performed By: #### A KRISHAN, CBC, TROPHS, GFR, BRETT RUELAS, BMP #### [place] [address] UAon 10-13-2024 Color (U) Yellow Normal [facility] Comment on above: Performed By: #### U A, UAMICAO, PREGU #### [place] [address] Glucose (U) [Mass/Vol] Negative Normal Negative [facility] Comment on above: Performed By: #### U A, UAMICAO, PREGU #### [place] [address] Ketones Ql (U) Negative Normal Negative [facility] Comment on above: Performed By: #### U A, UAMICAO, PREGU #### [place] [address] UA Appear Cloudy Abnormal Clear [facility] Comment on above: Performed By: #### U A, UAMICAO, PREGU #### [place] [address] UA Blood Trace Abnormal Negative [facility] Comment on above: Performed By: #### U A, UAMICAO, PREGU #### [place] [address] UA Leuk Est Negative Normal Negative [facility] Comment on above: Performed By: #### U A, UAMICAO, PREGU #### [place] [address] UA Nitrite Negative Normal Negative [facility] Comment on above: Performed By: #### U A, UAMICAO, PREGU #### [place] [address] UA pH 5.5 Normal 5.0 - 8.0 [facility] Comment on above: Performed By: #### U A, UAMICAO, PREGU #### [place] [address] UA Protein Negative Normal Negative [facility] Comment on above: Performed By: #### U A, UAMICAO, PREGU #### [address] [address] UA Spec Grav >=1.030 Abnormal 1.015-1.025 [facility] Comment on above: Performed By: #### U ANJU Gupta, PREGU #### [address] [address] UA Specimen Type Clean Catch Normal [facility] Comment on above: Performed By: #### U Candy UAMICJOLLY, PREGU #### [address] [address] UA Urobilinogen 0.2 E.U./dL Normal 0.2-1.0 [facility] Comment on above: Performed By: #### U DEREK GuptaMICJOLLY, PREGU #### [place] [address] Urobilinogen (U) [Mass/Vol] Negative Normal Negative [facility] Comment on above: Performed By: #### U ANJU Gupta, PREGU #### [address] [address] XR CHEST 1 VIEWon 10-13-2024 XR CHEST [...] Date: 10/13/2024 2:03:20 AM Ordering Provider: GISELLE TELLES Normal [facility] BACTERIAL VAGINOSIS NAATon 0 10-11-2024 Lactobacillus crispatus+gasseri+agustina senii + Gardnerella vaginalis + Atopobium vaginae rRNA EDMOND+probe Ql (Vag fld) Not detected Normal Not detected [facility] Comment on above: Order Comment: Speci men Type: SWABOrdering Facility: [facility] Address: [address] [place] [address] Performed By: #### C VTV, BVAMP ####[facility] LABCLIA [id number] [place] [address] [place] YEIMY/TRICHOMONAS NAATon 0 10-11-2024 C. glabrata RNA EDMOND+probe Ql (Vag fld) Not detected Normal Not detected [facility] Comment on above: Order Comment: Speci men Type: SWABOrdering Facility: [facility] Address: [address] [place] [address] Performed By: #### C VTV, BVAMP ####[facility] LABCLIA [id number] [address] [place] Yeimy sp DNA EDMOND+probe Ql (Vag fld) Not detected Normal Not detected [facility] Comment on above: Order Comment: Speci men Type: SWABOrdering Facility: [facility] Address: [address] [place] [address] Result Comment: The Yeimy species group target includes C. albicans, C. tropicalis, C. parapsilosis, and C. dubliniensis. Performed By: #### C VTV, BVAMP ####[facility] LABCLIA [id number] [address] [place] T. vaginalis DNA EDMOND+probe Ql (Unsp spec) Not detected Normal Not detected [facility] Comment on above: Order Comment: Speci men Type: SWABOrdering Facility: [facility] Address: [address] [place] [address] Performed By: #### C VTV, BVAMP ####[facility] LABCLIA [id number] [place] [address] [place] CNOVon 10-11-2024 CNOV Office Visit (OBGYWM ) ----- KATIE FORDE ([id number]) 2000 F Date Time Provider Department 10/11/24 9:30 AM PAT FERRER OBGYWM During your visit today, we recorded the following information about you: Blood pressure Weight Last Period 100/66 133.5 kg 08/06/24 Arminda Montoya LPN 10/11/2024 9:34 AM Signed VULVAR BIOPSY PATIENT INSTRUCTIONS Many conditions may cause your inpatient pharmacist to suggest a vulvar biopsy including vulvar itching unresponsive to therapy, ulcerated lesions, pigmented lesions, and tumors. The biopsy result will assist your inpatient pharmacist to devise a treatment plan suitable to [...] weeks please contact your physician. Pat Ferrer APRN.CRIBBER 10/11/2024 10:13 AM Signed Patient declined chaperoene. [...] mL 1% lidocaine with 1:100,000 epi. 4mm [place] punch used to biopsy region. HEMOSTASIS: Obtained with silver nitrate and pressure Procedure Summary: Patient tolerated procedure well. ASSESSMENT: persistent vulvar irritation PLAN: Specimens labeled and sent to Pathology. Will notify patient of results in 1-2 weeks. Post-procedure instructions reviewed and written material given to the patient. Pat Ferrer APRN.CRIBBER Referring Provider: PAT FERRER [[id number]] Allergies As of Date: 10/11/2024 (No Known Allergies) Date Reviewed: 10/11/2024 Reviewed by: Arminda Montoya LPN - Fully Assessed Reason for Visit: vulvar biopsy [Other] Primary Visit Diagnosis:Vulvar itching [L29.2] Other Visit Diagnosis:Missed menses [N92.6] Order(s):SURGICAL PATHOLOGY [[id number]] Order #: [id number] UA DIP,URINE HCG (POC) [7731736] Order #: [id number]. #:[id number] 74-LAB YEIMY/TRICHOMONAS NAAT [SQCVTV] Order #: [id number] BACTERIAL VAGINOSIS NAAT [SQBVAMP] Order #: [id number] Prescriptions as of 10/11/2024 - meclizine (ANTIVERT) [...] - amphet (more content not included)... Normal [facility] CNOVSPon 10-11-2024 OVS Visit (SP) Office (JANNET) ----- KATIE FORDE ([id number]) 2000 F Date Time Provider Department 10/11/24 [...] 11, 2024) HISTORY OF PRESENT ILLNESS: Katie A Jonathan is a 22 year old female here [...] every mornin (more content not included)... Normal [facility] Pathology biopsy report Jeff (Tiss)on 10-11-2024 AP DISCLAIMER Normal [facility] Comment on above: Order Comment: Speci men Type: TISSUE SPECIMENOrdering Facility: [facility] Address: [address] [place] [address] Result Comment: Faby Sanchez Test (LDT) Disclaimer: Performance characteristics of immunohistochemical, immunofluorescent, and chromogenic in-situ hybridization tests have been determined by the performing laboratory within [facility]'s [facility] Pathology and Laboratory Medicine Department ([facility], [facility], [facility], [facility], [facility], [facility], or [facility]) in a manner consistent with CLIA requirements. One or more of these tests may not have been cleared or approved by the FDA. [facility] is regulated under CLIA as qualified to perform high-complexity testing. These tests are used for clinical purposes. These should not be regarded as investigational or for research. Positive and negative controls stain appropriately. Performed By: #### 6 6121-5 ####[facility] LABCLIA [id number] [place] [address] [place] CASE REPORT Normal [facility] Comment on above: Order Comment: Speci men Type: TISSUE SPECIMENOrdering Facility: [facility] Address: [address] [place] [address] Result Comment: Surg [facility] Pathology Report Case: [id number] Authorizing Provider: Pat Ferrer APRN.CRIBBER Collected: 10/11/2024 10:59 AM Ordering Location: OB/Gynecology Received: 10/11/2024 11:44 AM Pathologist: Gabbie Mathews MD Specimen: Vulva, Biopsy Performed By: #### 6 6121-5 ####[facility] LABCLIA [id number] [place] [address] [place] CLINICAL HISTORY vulvar irritation Normal C [facility] Comment on above: Order Comment: Speci men Type: TISSUE SPECIMENOrdering Facility: [facility] Address: [address] [place] [address] Performed By: #### 6 6121-5 ####[facility] LABCLIA [id number] [address] [address] [place] DIAGNOSIS COMMENT Normal [facility] Comment on above: Order Comment: Speci men Type: TISSUE SPECIMENOrdering Facility: [facility] Address: [address] [place] [address] Result Comment: A PA S stain is negative for fungal organisms. Dr. Hawk Lovell (dermatopathology) reviewed this case and agrees with the diagnosis. Performed By: #### 6 6121-5 ####[facility] LABCLIA [id number] [place] [id number] [place] FINAL DIAGNOSIS Normal [facility] Comment on above: Order Comment: Speci men Type: TISSUE SPECIMENOrdering Facility: [facility] Address: [address] [place] [address] Result Comment: Vulv a, biopsy: Lichen simplex chronicus; see comment. at 1526 EDT Performed By: #### 6 6121-5 ####[facility] LABCLIA [id number] [address] [place] FINAL PERFORMING LAB Normal [facility] Comment on above: Order Comment: Speci men Type: TISSUE SPECIMENOrdering Facility: [facility] Address: [address] [place] [address] Result Comment: Diag nostic interpretation performed at: [facility], [address] [place], [place] [address] CLIA# [id number] Rewards Consultant: Steven Shelby MD Performed By: #### 6 6121-5 ####[facility] LABCLIA [id number] [address] [place] GROSS DESCRIPTION Normal [facility] Comment on above: Order Comment: Speci men Type: TISSUE SPECIMENOrdering Facility: [facility] Address: [address] [place] [address] Result Comment: A. V ulva, Biopsy Received in formalin are two pieces of leon-white to red, soft tissue aggregating to 0.8 x 0.2 x 0.2 cm. Totally submitted in one cassette. Gross examination performed at [facility], [address] [place] [address] KK October 11, 2024 5:20 PM Performed By: #### 6 6121-5 ####[facility] LABCLIA [id number] [place] [address] [place] UA DIP,URINE HCG (POC)on Beta HCG ( test) Ql (U) Negative Negative [facility] Comment on above: Location:[facility], [address], [place], [address] Business Process Analyst (POCT) Internal QC OK [facility] Location:[facility], [address], [place], [address] [facility] POINT OF CARE [facility] CNPKalyn 10-07-2024 CNPN Telephone (JANNET) ----- KATIE FORDE ([id number]) 2000 F Date Time Provider Department 10/07/24 GOPAL YANEZ During your visit today, we recorded the following information about you: Megha Crandall 10/07/2024 1:47 PM Signed Patient states she was at [facility] ED and they informed her to contact hematology for scheduling. Please review and advise. Patient had seen Dr. Burris 07/[address] Yanez 12/2022, 06/2023 Marcia Tilley, SHAJI 10/07/2024 2:33 PM Signed She is already [...] Encounter Status:Closed by RENO MCCOLLUM on 10/07/24 [facility] KATIE FORDE ([id number]) 2000 F Date Time Provider Department 10/07/24 KATE SILVA INTMWS During your visit today, we recorded the following information about you: Liza Post, SHAJI 10/07/2024 1:59 PM Signed Patient reports she was seen in [facility] ER on 09/29/24 AND 10/06/24 for the [...] and neurology consults. Will touch base with knee bolter before sending formal order so they can make recommendations for labs to order prior as indicated. Consult order filed for neurology. Zohreh Fregoso LPN 10/08/2024 11:45 AM Signed My chart message sent to patient. WAYNE Pina Kathryn, MA 10/08/2024 3:18 PM Signed Pt read [employer] message. Ami Alberts MA Allergies As of Date: 10/07/2024 (No Known Allergies) Date Reviewed: 10/01/2024 Reviewed by: Annalee Jaffe LPN - Fully Assessed Reason for Visit: Patient Question [0587] Primary Visit Diagnosis:Numbness and tingling [R20.0, R20.2] Order(s):CONSULT TO NEUROLOGY [9019] Order #: [id number]: 1 FUTURE Prescriptions as of 10/08/2024 - [...] pediatric, greater (more content not included)... Normal [facility] 12 Lead EKGon 10-06-2024 12 Lead EKG [facility] [address] [place] [address] 12 Lead EKG 10/06/242039 MR#: [id number] Acct: [id number] Name: KATIE FORDE Rep #: [id number] : 2000 From: Tom Corey MD Attending [...] ECG Confirmed by TOM COREY MD ([id number]), production editor LOS ZARATE ([id number]) on 10/07/2024 8:41:43 AM Referred By: Confirmed By: TOM COREY MD 10/07/24 0841 Date Tom Corey MD CC: Dr. Kate Silva MD; Dr. Mike Feldman DO Signed Normal [facility] Absolute lymphocyte countOrd ered By: Mike Feldman on 10-06-2024 Lymphocytes Auto (Unsp spec) [#/Vol] 3.60 10*3/uL 0.83-4.51 [facility] Absolute neutrophil countOrd ered By: Mike Feldman on 10-06-2024 Neutrophils (Bld) [#/Vol] 12.1 10*3/uL High 2.0-7.7 [facility] Anion gap in Serum or Plasma Ordered By: Mike Feldman on 10-06-2024 Anion gap [Moles/Vol] 13 mmol/L 5-15 [facility] Automated lymphocyte count a s percentage of total leukocytesOrdered By: Mike Feldman on 10-06-2024 Lymphocytes/100 WBC Auto (Unsp spec) 21.6 % 19-41 [facility] BUN/creatinine ratioOrdered By: Mike Feldman on 10-06-2024 Urea nitrogen/Creatinine [Mass ratio] 12.8 mg/mg 10- [facility] Basic Metabolic Profile (BMP )on 10-06-2024 BUN/CRE 12.8 RATIO Normal - [facility] Comment on above: Performed By: #### L 500.2500, L501.9520, L100.0100 #### [facility] [address] [place], [address] Calcium [Mass/Vol] 9.2 mg/dL Normal 7.6-11.0 [facility] Comment on above: Performed By: #### L 500.2500, L501.9520, L100.0100 #### [facility] [address] [place], [address] Chloride [Moles/Vol] 102 mmol/L Normal 98-108 [facility] Comment on above: Performed By: #### L 500.2500, L501.9520, L100.0100 #### [facility] [address] [place], [address] CO2 [Moles/Vol] 23.1 mmol/L Normal 21.0-32.0 [facility] Comment on above: Performed By: #### L 500.2500, L501.9520, L100.0100 #### [facility] [address] [place], [address] Creatinine [Mass/Vol] 0.78 mg/dL Normal 0.70-1.20 [facility] Comment on above: Performed By: #### L 500.2500, L501.9520, L100.0100 #### [facility] [address] [place], [address] ECRCL 172.04 ml/min Normal 50-250 [facility] Comment on above: Performed By: #### L 500.2500, L501.9520, L100.0100 #### [facility] [address] [place], [address] GAP 13 Normal 5-15 [facility] Comment on above: Performed By: #### L 500.2500, L501.9520, L100.0100 #### [facility] [address] [place], [address] GFR/1.73 sq M.predicted among non-blacks MDRD (S/P/Bld) [Vol rate/Area] 109 mL/min/{1.73_m2} Normal >60 [facility] Comment on above: Result Comment: mL/m in/1.73m2 CKD-EPI Creatinine Equation (2020) Performed By: #### L 500.2500, L501.9520, L100.0100 #### [facility] [address] [place], [address] Glucose [Mass/Vol] 96 mg/dL Normal 70-99 [facility] Comment on above: Performed By: #### L 500.2500, L501.9520, L100.0100 #### [facility] [address] [place], [address] Potassium [Moles/Vol] 3.9 mmol/L Normal 3.3-5.1 [facility] Comment on above: Performed By: #### L 500.2500, L501.9520, L100.0100 #### [facility] [address] [place], [address] Sodium [Moles/Vol] 138 mmol/L Normal 133-145 [facility] Comment on above: Performed By: #### L 500.2500, L501.9520, L100.0100 #### [facility] [address] [place], [address] Urea nitrogen [Mass/Vol] 10 mg/dL Normal 4- [facility] Comment on above: Performed By: #### L 500.2500, L501.9520, L100.0100 #### [facility] [address] [place], [address] Basophil percentageOrdered B y: Mike Feldman on 10-06-2024 Basophils/100 WBC (Bld) 0.5 % 0-1 [facility] Brain/Head without Contrasto n 10-06-2024 Brain/Head without Contrast [facility] Imaging Services [address] [facility] [place] [place], [place] [address] Brain/Head without Contrast MR#: [id number] Acct: [id number] Name: KATIE FORDE Rep #: [id number] : 2000 From: Colt escobar MD PCP: Dr. Kate Silva MD Status: REG ER Study: Brain/Head without Contrast Date of Exam: 03/24 Exam# [id number] Ordering Dr: Mike Feldman DO PROCEDURE: BRAIN/HEAD [...] IMPRESSION: No acute intracranial abnormality. Reading Location: [facility] CC: Dr. Kate Silva MD; Dr. Mike Le, DO Software Validation Technician: Signed Normal [facility] CBC W/Diff, Automatedon 04-0 -2024 Absolute Lymph 3.60 X10 3/uL Normal 0.83-4.51 [facility] Comment on above: Performed By: #### L 500.2500, L501.9520, L100.0100 #### [facility] [address] [place], [address] Absolute Neut 12.1 X10 3/uL High 2.0-7.7 [facility] Comment on above: Performed By: #### L 500.2500, L501.9520, L100.0100 #### [facility] [address] [place], [address] Basophils/100 WBC (Bld) 0.5 % Normal 0-1 [facility] Comment on above: Performed By: #### L 500.2500, L501.9520, L100.0100 #### [facility] [address] [place], [address] Eosinophils/100 WBC (Bld) 0.4 % Normal 0-5 [facility] Comment on above: Performed By: #### L 500.2500, L501.9520, L100.0100 #### [facility] [address] [place], [address] Erythrocyte distribution width (RBC) [Ratio] 12.1 % Normal 11.6-14.6 [facility] Comment on above: Performed By: #### L 500.2500, L501.9520, L100.0100 #### [facility] [address] [place], [address] Hematocrit (Bld) [Volume fraction] 42.9 % Normal 37-47 [facility] Comment on above: Performed By: #### L 500.2500, L501.9520, L100.0100 #### [facility] [address] [place], [address] Hemoglobin (Bld) [Mass/Vol] 14.7 g/dL Normal 12.0-15.0 [facility] Comment on above: Performed By: #### L 500.2500, L501.9520, L100.0100 #### [facility] [address] [place], [address] IG% 0.400 Normal 0.0-0.9 [facility] Comment on above: Result Comment: IG% - Immature Granulocytes (promyelocytes, myelocytes and metamyelocytes) > 1% indicates that a LEFT SHIFT is Present. Performed By: #### L 500.2500, L501.9520, L100.0100 #### [facility] [address] [place], [address] Lymphocytes/100 WBC (Bld) 21.6 % Normal 19-41 [facility] Comment on above: Performed By: #### L 500.2500, L501.9520, L100.0100 #### [facility] [address] [place], [address] MCH (RBC) [Entitic mass] 30.2 pg Normal 27.0-32.0 [facility] Comment on above: Performed By: #### L 500.2500, L501.9520, L100.0100 #### [facility] [address] [place], [address] MCHC (RBC) [Mass/Vol] 34.3 g/dL Normal 32-36 [facility] Comment on above: Performed By: #### L 500.2500, L501.9520, L100.0100 #### [facility] [address] [place], [address] MCV (RBC) [Entitic vol] 88.3 fL Normal 81-99 [facility] Comment on above: Performed By: #### L 500.2500, L501.9520, L100.0100 #### [facility] [address] [place], [address] Monocytes/100 WBC (Bld) 4.6 % Normal 0-10 [facility] Comment on above: Performed By: #### L 500.2500, L501.9520, L100.0100 #### [facility] [address] [place], [address] Neutrophils/100 WBC (Bld) 72.5 % High 47-70 [facility] Comment on above: Performed By: #### L 500.2500, L501.9520, L100.0100 #### [facility] [address] [place], [address] Nucleated RBC (Bld) [#/Vol] 0 10*3/uL Normal 0-5 [facility] Comment on above: Performed By: #### L 500.2500, L501.9520, L100.0100 #### [facility] [address] [place], [address] Platelet mean volume (Bld) [Entitic vol] 9.7 fL Normal 6.2-12.0 [facility] Comment on above: Performed By: #### L 500.2500, L501.9520, L100.0100 #### [facility] [address] [place], [address] Platelets (Bld) [#/Vol] 512 10*3/uL High 150-450 [facility] Comment on above: Performed By: #### L 500.2500, L501.9520, L100.0100 #### [facility] [address] [place], [address] RBC (Bld) [#/Vol] 4.86 10*6/uL Normal 4.2-5.4 [facility] Comment on above: Performed By: #### L 500.2500, L501.9520, L100.0100 #### [facility] [address] [place], [address] RDW SD 39.6 fl Normal 35.1-43.9 [facility] Comment on above: Performed By: #### L 500.2500, L501.9520, L100.0100 #### [facility] [address] [place], [address] WBC (Bld) [#/Vol] 16.7 10*3/uL High 4.4-11.0 [facility] Comment on above: Performed By: #### L 500.2500, L501.9520, L100.0100 #### [facility] [address] [place], [address] Carbon dioxide, total [Moles /volume] in Central venous bloodOrdered By: Mike Feldman on 10-06-2024 CO2 [Moles/Vol] 23.1 mmol/L 21.0-32.0 [facility] Chloride assayOrdered By: Jasiel Feldman on 10-06-2024 Chloride [Moles/Vol] 102 mmol/L 98-108 [facility] Emergency Department Summary on 10-06-2024 Emergency Department Summary [facility] Medical Records Department [address] [place] [address] Emergency Department Summary 10/06/24 MR#: [id number] Acct: [id number] Name: KATIE FORDE Rep #: [id number] : 2000 23 From: Mike Caballero PCP: Dr. Kate Silva MD Status:[facility] ER Location: ED HPI History of Present [...] urinary symptoms. Prior similar symptoms: Yes PFSH PFSH Medical History Depersonalization disorder Fatty liver Smoker [...] x3, CN's (more content not included)... Normal [facility] Eosinophil percentageOrdered By: Mike Feldman on 10-06-2024 Eosinophils/100 WBC (Bld) 0.4 % 0-5 [facility] Erythrocyte distribution wid th (RBC) [Ratio]Ordered By: Mike Feldman on 10-06-2024 Erythrocyte distribution width (RBC) [Entitic vol] 39.6 fL 35.1-43.9 [facility] Erythrocyte distribution wid th ratioOrdered By: Mike Feldman on 10-06-2024 Erythrocyte distribution width (RBC) [Ratio] 12.1 % 11.6-14.6 [facility] Erythrocyte distribution wid th standard deviationOrdered By: Mike Feldman on 10-06-2024 Erythrocyte distribution width (RBC) [Ratio] 39.6 fl 35.1-43.9 [facility] Estimation of creatinine nicole aranceOrdered By: Mike Feldman on 10-06-2024 Estimated Creatinine Clearance Calc 172.04 ml/min 50-250 [facility] GFR/1.73 sq M.predicted tiesha g non-blacks MDRD (S/P/Bld) [Vol rate/Area]Ordered By: Mike Feldman on 10-06-2024 Estimated GFR (MDRD) Non-Af Amer 109 >60 [facility] Comment on above: mL/min/1.73m2 CKD-EP I Creatinine Equation (2020) Glomerular filtration rate ( GFR) estimation/1.73 sq m using serum, plasma, or whole bOrdered By: Mike Feldman on 10-06-2024 GFR/1.73 sq M.predicted among non-blacks MDRD (S/P/Bld) [Vol rate/Area] 109 mL/min/{1.73_m2} >60 [facility] Comment on above: mL/min/1.73m2 CKD-EP I Creatinine Equation (2020) Hematocrit Auto (Bld) [Volum e fraction]Ordered By: Mike Feldman on 10-06-2024 Hematocrit (Bld) [Volume fraction] 42.9 % 37-47 [facility] Hemoglobin measurementOrdere d By: Mike Feldman on 10-06-2024 Hemoglobin (Bld) [Mass/Vol] 14.7 g/dL 12.0-15.0 [facility] Immature granulocytes/100 WB C Auto (Bld)Ordered By: Mike Feldman on 10-06-2024 Immature granulocytes/100 WBC (Bld) 0.400 % 0.0-0.9 [facility] Comment on above: IG% - Immature Granu locytes (promyelocytes, myelocytes and metamyelocytes) > 1% indicates that a LEFT SHIFT is Present. Lymphocytes Auto (Unsp spec) [#/Vol]Ordered By: iMke Feldman on 10-06-2024 Lymphocytes (Bld) [#/Vol] 3.60 10*3/uL 0.83-4.51 [facility] Lymphocytes/100 WBC Auto (Un sp spec)Ordered By: Mike Feldman on 10-06-2024 Lymphocytes/100 WBC (Bld) 21.6 % 19-41 [facility] MCV (mean corpuscular volume ) determinationOrdered By: Mike Feldman on 10-06-2024 MCV (RBC) [Entitic vol] 88.3 fL 81-99 [facility] Mean corpuscular hemoglobin (MCH) determinationOrdered By: Miek Feldman on 10-06-2024 MCH (RBC) [Entitic mass] 30.2 pg 27.0-32.0 [facility] Mean corpuscular hemoglobin concentration (MCHC) determinationOrdered By: Mike Feldman on 10-06-2024 MCHC (RBC) [Mass/Vol] 34.3 g/dL 32-36 [facility] Mean platelet volume determi nationOrdered By: Mike Feldman on 10-06-2024 Platelet mean volume (Bld) [Entitic vol] 9.7 fL 6.2-12.0 [facility] Monocyte percentageOrdered B y: Mike Feldman on 10-06-2024 Monocytes/100 WBC (Bld) 4.6 % 0-10 [facility] Neutrophil percentageOrdered By: Mike Feldman on 10-06-2024 Neutrophils/100 WBC (Bld) 72.5 % High 47-70 [facility] Nucleated red blood cell per centageOrdered By: Mike Feldman on 10-06-2024 Nucleated RBC/100 WBC (Bld) [Ratio] 0 % 0-5 [facility] Platelet countOrdered By: Jasiel Feldman on 10-06-2024 Platelets (Bld) [#/Vol] 512 10*3/uL High 150-450 [facility] Potassium (Unsp spec) [Mass/ Vol]Ordered By: Mike Feldman on 10-06-2024 Potassium [Moles/Vol] 3.9 mmol/L 3.3-5.1 [facility] Potassium measurement (mass/ volume)Ordered By: Mike Feldman on 10-06-2024 Potassium (Unsp spec) [Mass/Vol] 3.9 mmol/L 3.3-5.1 [facility] RBC Auto (Bld) [#/Vol]Ordere d By: Mike Feldman on 10-06-2024 RBC (Bld) [#/Vol] 4.86 10*6/uL 4.2-5.4 [facility] Serum creatinine measurement (mass/volume)Ordered By: Mike Feldman on 10-06-2024 Creatinine [Mass/Vol] 0.78 mg/dL 0.70-1.20 [facility] Serum glucose measurement (m ass/volume)Ordered By: Mike Feldman on 10-06-2024 Glucose [Mass/Vol] 96 mg/dL 70-99 [facility] Serum or plasma calcium lawrence urement (mass/volume)Ordered By: Mike Feldman on 10-06-2024 Calcium [Mass/Vol] 9.2 mg/dL 7.6-11.0 [facility] Serum or plasma urea nitroge n measurement (mass/volume)Ordered By: Mike Feldman on 10-06-2024 Urea nitrogen [Mass/Vol] 10 mg/dL 4-19 [facility] Sodium levelOrdered By: Mike Feldman on 10-06-2024 Sodium [Moles/Vol] 138 mmol/L 133-145 [facility] TSH DL <= 0.005 mIU/L QnOrde red By: Mike Feldman on 10-06-2024 Thyroid Stimulating Hormone (TSH) 0.571 uIU/mL 0.300-4.200 [facility] TSH Qn 0.571 uIU/mL 0.300-4.200 [facility] Thyroid Stim Hormone (TSH)on 10-06-2024 TSH 0.571 uIU/mL Normal 0.300-4.200 [facility] Comment on above: Performed By: #### L 500.2500, L501.9520, L100.0100 ####[facility] [address] [place], [address] White blood cell (WBC) count Ordered By: Mike Feldman on 10-06-2024 WBC (Bld) [#/Vol] 16.7 10*3/uL High 4.4-11.0 [facility] CNOVon 10-01-2024 CNOV Office Visit (INTMWS ) ----- KATIE FORDE ([id number]) 2000 F Date Time Provider Department 10/01/24 10:00 AM KATE SILVA INTWS During your visit today, we recorded the following information about you: Pulse Respiration Blood pressure Weight 64/minute 14/minute 110/64 133.2 kg Kate Silva MD 10/01/2024 11:22 AM Signed This note was created using [employer]. Subjective Katie Forde is a 23 year [...] issues with her kidneys. She has tried flro-bgx-pjcuctf Dramamine for the lightheadedness but reports that [...] to 30 (more content not included)... Normal [facility] 12 Lead EKGon 09-29-2024 12 Lead EKG [facility] [address] [place] [address] 12 Lead EKG 09/29/24 2040 MR#: [id number] Acct: [id number] Name: KATIE FORDE Rep #: [id number] : 2000 From: Tom Corey MD Attending Dr: Status: DEP Ordering Dr: Russell Agarwal Date: 09/29/24 Location: [...] ECG Confirmed by TOM COREY MD ([id number]), production editor BRANDAN VAZQUEZ ([id number]) on 10/01/2024 9:23:01 AM Referred By: JACQUELIN Confirmed By: TOM COREY MD 10/01/24 0923 Date Tom Corey MD CC: DUNIA Agarwal; Dr. Kate Silva MD; Dr. Shiv Roper, DO Signed Normal [facility] Absolute lymphocyte countOrd ered By: Russell Agarwal on 09-29-2024 Lymphocytes Auto (Unsp spec) [#/Vol] 3.89 10*3/uL 0.83-4.51 [facility] Absolute neutrophil countOrd ered By: Russell Agarwal on 09-29-2024 Neutrophils (Bld) [#/Vol] 10.0 10*3/uL High 2.0-7.7 [facility] Anion gap in Serum or Plasma Ordered By: Russell Agarwal on 09-29-2024 Anion gap [Moles/Vol] 12 mmol/L 5-15 [facility] Automated lymphocyte count a s percentage of total leukocytesOrdered By: Russell Agarwal on 09-29-2024 Lymphocytes/100 WBC Auto (Unsp spec) 25.9 % 19-41 [facility] BUN/creatinine ratioOrdered By: Russell Agarwal on 09-29-2024 Urea nitrogen/Creatinine [Mass ratio] 9.7 mg/mg Low 10-20 [facility] Basophil percentageOrdered B y: Russell Agarwal on 09-29-2024 Basophils/100 WBC (Bld) 0.6 % 0-1 [facility] Bilirubin Test strip Ql (U)O rdered By: Shiv Roper on 09-29-2024 Bilirubin Ql (U) Negative Negative [facility] Bilirubin, totalOrdered By: Russell Agarwal on 09-29-2024 Bilirubin [Mass/Vol] 0.33 mg/dL 0.00-1.30 [facility] CBC W/Diff, Automatedon Absolute Lymph 3.89 X10 3/uL Normal 0.83-4.51 [facility] Comment on above: Performed By: #### L 500.4050, L501.2450, L100.0100 ####[facility] [address] [place], [address] Absolute Neut 10.0 X10 3/uL High 2.0-7.7 [facility] Comment on above: Performed By: #### L 500.4050, L501.2450, L100.0100 ####[facility] [address] [place], [address] Basophils/100 WBC (Bld) 0.6 % Normal 0-1 [facility] Comment on above: Performed By: #### L 500.4050, L501.2450, L100.0100 ####[facility] [address] [place], [address] Eosinophils/100 WBC (Bld) 0.5 % Normal 0-5 [facility] Comment on above: Performed By: #### L 500.4050, L501.2450, L100.0100 ####[facility] [address] [place], [address] Erythrocyte distribution width (RBC) [Ratio] 12.3 % Normal 11.6-14.6 [facility] Comment on above: Performed By: #### L 500.4050, L501.2450, L100.0100 ####[facility] [address] [place], [address] Hematocrit (Bld) [Volume fraction] 42.1 % Normal 37-47 [facility] Comment on above: Performed By: #### L 500.4050, L501.2450, L100.0100 ####[facility] [address] [place], [address] Hemoglobin (Bld) [Mass/Vol] 14.6 g/dL Normal 12.0-15.0 [facility] Comment on above: Performed By: #### L 500.4050, L501.2450, L100.0100 ####[facility] [address] [place], [address] IG% 0.500 Normal 0.0-0.9 [facility] Comment on above: Result Comment: IG% - Immature Granulocytes (promyelocytes, myelocytes and metamyelocytes) > 1% indicates that a LEFT SHIFT is Present. Performed By: #### L 500.4050, L501.2450, L100.0100 ####[facility] [address] [place], [address] Lymphocytes/100 WBC (Bld) 25.9 % Normal 19-41 [facility] Comment on above: Performed By: #### L 500.4050, L501.2450, L100.0100 ####[facility] [address] [place], [address] MCH (RBC) [Entitic mass] 30.2 pg Normal 27.0-32.0 [facility] Comment on above: Performed By: #### L 500.4050, L501.2450, L100.0100 ####[facility] [address] [place], [address] MCHC (RBC) [Mass/Vol] 34.7 g/dL Normal 32-36 [facility] Comment on above: Performed By: #### L 500.4050, L501.2450, L100.0100 ####[facility] [address] [place], [address] MCV (RBC) [Entitic vol] 87.2 fL Normal 81-99 [facility] Comment on above: Performed By: #### L 500.4050, L501.2450, L100.0100 ####[facility] [address] [place], [address] Monocytes/100 WBC (Bld) 5.8 % Normal 0-10 [facility] Comment on above: Performed By: #### L 500.4050, L501.2450, L100.0100 ####[facility] [address] [place], [address] Neutrophils/100 WBC (Bld) 66.7 % Normal 47-70 [facility] Comment on above: Performed By: #### L 500.4050, L501.2450, L100.0100 ####[facility] [address] [place], [address] Nucleated RBC (Bld) [#/Vol] 0 10*3/uL Normal 0-5 [facility] Comment on above: Performed By: #### L 500.4050, L501.2450, L100.0100 ####[facility] [address] [place], [address] Platelet mean volume (Bld) [Entitic vol] 9.4 fL Normal 6.2-12.0 [facility] Comment on above: Performed By: #### L 500.4050, L501.2450, L100.0100 ####[facility] [address] [place], [address] Platelets (Bld) [#/Vol] 503 10*3/uL High 150-450 [facility] Comment on above: Performed By: #### L 500.4050, L501.2450, L100.0100 ####[facility] [address] [place], [address] RBC (Bld) [#/Vol] 4.83 10*6/uL Normal 4.2-5.4 [facility] Comment on above: Performed By: #### L 500.4050, L501.2450, L100.0100 ####[facility] [address] [place], [place], [address] RDW SD 39.3 fl Normal 35.1-43.9 [facility] Comment on above: Performed By: #### L 500.4050, L501.2450, L100.0100 ####[facility] [address] [place], [address] WBC (Bld) [#/Vol] 15.0 10*3/uL High 4.4-11.0 [facility] Comment on above: Performed By: #### L 500.4050, L501.2450, L100.0100 ####[facility] [address] [place], [place], [id number] Carbon dioxide, total [Moles /volume] in Central venous bloodOrdered By: Russell Agarwal on 09-29-2024 CO2 [Moles/Vol] 23.3 mmol/L 21.0-32.0 [facility] Chest 1 View (Portable)on Chest 1 View (Portable) [facility] Services [address] [place], [place] [address] Chest 1 View (Portable) MR#: [id number] Acct: [id number] Name: KATIE FORDE Rep #: [id number] : 2000 F 23 From: Babak Cortes DO PCP: Dr. Kate Silva MD Status: [facility] ER Study: Chest 1 View (Portable) Date of Exam: 09/29/24 Exam# [id number] Ordering Dr: Shiv Roper DO PROCEDURE: CHEST [...] Kate Silva MD; Dr. Shiv Roper DO Software Validation Technician: Signed Normal [facility] Chloride assayOrdered By: Aditya Agarwal on 09-29-2024 Chloride [Moles/Vol] 102 mmol/L 98-108 [facility] Comprehensive Metabolic Prof ilon 09-29-2024 Albumin [Mass/Vol] 4.3 g/dL Normal 3.5-5.0 [facility] Comment on above: Performed By: #### L 500.4050, L501.2450, L100.0100 ####[facility] [address] [place], [address] Albumin/Globulin [Mass ratio] 1.2 {ratio} Normal 0.9-2.4 [facility] Comment on above: Performed By: #### L 500.4050, L501.2450, L100.0100 ####[facility] [address] [place], [address] ALK PHOS 80 U/L Normal 35-104 [facility] Comment on above: Performed By: #### L 500.4050, L501.2450, L100.0100 ####[facility] [address] [place], [address] ALT [Catalytic activity/Vol] 68 U/L High <=34 [facility] Comment on above: Performed By: #### L 500.4050, L501.2450, L100.0100 ####[facility] [address] [place], [address] AST [Catalytic activity/Vol] 43 U/L High <=31 [facility] Comment on above: Performed By: #### L 500.4050, L501.2450, L100.0100 ####[facility] [address] [place], [address] Bilirubin [Mass/Vol] 0.33 mg/dL Normal 0.00-1.30 [facility] Comment on above: Performed By: #### L 500.4050, L501.2450, L100.0100 ####[facility] [address] [place], [address] BUN/CRE 9.7 RATIO Low 10-20 [facility] Comment on above: Performed By: #### L 500.4050, L501.2450, L100.0100 ####[facility] [address] [place], [address] Calcium [Mass/Vol] 9.0 mg/dL Normal 7.6-11.0 [facility] Comment on above: Performed By: #### L 500.4050, L501.2450, L100.0100 ####[facility] [address] [place], [address] Chloride [Moles/Vol] 102 mmol/L Normal 98-108 [facility] Comment on above: Performed By: #### L 500.4050, L501.2450, L100.0100 ####[facility] [address] [place], [address] CO2 [Moles/Vol] 23.3 mmol/L Normal 21.0-32.0 [facility] Comment on above: Performed By: #### L 500.4050, L501.2450, L100.0100 ####[facility] [address] [place], [address] Creatinine [Mass/Vol] 0.84 mg/dL Normal 0.70-1.20 [facility] Comment on above: Performed By: #### L 500.4050, L501.2450, L100.0100 ####[facility] [address] [place], [address] ECRCL 160.52 ml/min Normal 50-250 [facility] Comment on above: Performed By: #### L 500.4050, L501.2450, L100.0100 ####[facility] [address] [place], [address] GAP 12 Normal 5-15 [facility] Comment on above: Performed By: #### L 500.4050, L501.2450, L100.0100 ####[facility] [address] [place], [address] GFR/1.73 sq M.predicted among non-blacks MDRD (S/P/Bld) [Vol rate/Area] 99 mL/min/{1.73_m2} Normal >60 [facility] Comment on above: Result Comment: mL/m in/1.73m2 CKD-EPI Creatinine Equation (2020) Performed By: #### L 500.4050, L501.2450, L100.0100 ####[facility] [address] [place], [address] Globulin (S) [Mass/Vol] 3.8 g/dL Normal 2.2-4.2 [facility] Comment on above: Performed By: #### L 500.4050, L501.2450, L100.0100 ####[facility] [address] [place], [address] Glucose [Mass/Vol] 84 mg/dL Normal 70-99 [facility] Comment on above: Performed By: #### L 500.4050, L501.2450, L100.0100 ####[facility] [address] [place], [address] Potassium [Moles/Vol] 3.8 mmol/L Normal 3.3-5.1 [facility] Comment on above: Performed By: #### L 500.4050, L501.2450, L100.0100 ####[facility] [address] [place], [address] Sodium [Moles/Vol] 138 mmol/L Normal 133-145 [facility] Comment on above: Performed By: #### L 500.4050, L501.2450, L100.0100 ####[facility] [address] [place], [address] T PROT 8.1 g/dL Normal 5.9-8.4 [facility] Comment on above: Performed By: #### L 500.4050, L501.2450, L100.0100 ####[facility] [address] [place], [address] Urea nitrogen [Mass/Vol] 8 mg/dL Normal 4-19 [facility] Comment on above: Performed By: #### L 500.4050, L501.2450, L100.0100 ####[facility] [address] [place], [address] Emergency Department Summary on 09-29-2024 Emergency Department Summary [facility] Medical Records Department [address] [place] [address] Emergency Department Summary 09/29/24 MR#: [id number] Acct: [id number] Name: KATIE FORDE Rep #: [id number] : 2000 23 From: Shiv Roper DO PCP: Dr. Kate Silva MD Status:REG ER Location: ED HPI History of Present Illness Chief Complaint: Weakness [facility] Medical History Smoker Marfan syndrome ADHD (attention [...] Ox 97 Oxygen Delivery Method Room Air [facility] MDM Narrative Medical decision making narrative: HISTORY [...] History obtained from others: none Consults: none [facility] Narrative: The patient was initially hemodynamically, afebrile [...] Urine is (more content not included)... Normal [facility] Eosinophil percentageOrdered By: Russell Agarwal on 09-29-2024 Eosinophils/100 WBC (Bld) 0.5 % 0-5 [facility] Epithelial cells.squamous LM Ql (Urine sed)Ordered By: Shiv Roper on 09-29-2024 Epithelial cells.squamous LM.HPF (Urine sed) [#/Area] 0 /[HPF] 5-10 [facility] Erythrocyte distribution wid th (RBC) [Ratio]Ordered By: Russell Agarwal on 09-29-2024 Erythrocyte distribution width (RBC) [Entitic vol] 39.3 fL 35.1-43.9 [facility] Erythrocyte distribution wid th ratioOrdered By: Russell Agarwal on 09-29-2024 Erythrocyte distribution width (RBC) [Ratio] 12.3 % 11.6-14.6 [facility] Erythrocyte distribution wid th standard deviationOrdered By: Russell Agarwal on 09-29-2024 Erythrocyte distribution width (RBC) [Ratio] 39.3 fl 35.1-43.9 [facility] Estimation of creatinine nicole aranceOrdered By: Russell Agarwal on 09-29-2024 Estimated Creatinine Clearance Calc 160.52 ml/min 50-250 [facility] GFR/1.73 sq M.predicted tiesha g non-blacks MDRD (S/P/Bld) [Vol rate/Area]Ordered By: Russell Agarwal on 09-29-2024 Estimated GFR (MDRD) Non-Af Amer 99 >60 [facility] Comment on above: mL/min/1.73m2 CKD-EP I Creatinine Equation (2020) Glomerular filtration rate ( GFR) estimation/1.73 sq m using serum, plasma, or whole bOrdered By: Russell Agarwal on 09-29-2024 GFR/1.73 sq M.predicted among non-blacks MDRD (S/P/Bld) [Vol rate/Area] 99 mL/min/{1.73_m2} >60 [facility] Comment on above: mL/min/1.73m2 CKD-EP I Creatinine Equation (2020) Glucose Ql (U)Ordered By: Tony Roper on 09-29-2024 Urine Glucose (UA) Normal mg/dl Normal [facility] Hematocrit Auto (Bld) [Volum e fraction]Ordered By: Russell Agarwal on 09-29-2024 Hematocrit (Bld) [Volume fraction] 42.1 % 37-47 [facility] Hemoglobin measurementOrdere d By: Russell Agarwal on 09-29-2024 Hemoglobin (Bld) [Mass/Vol] 14.6 g/dL 12.0-15.0 [facility] Immature granulocytes/100 WB C Auto (Bld)Ordered By: Russell Agarwal on 09-29-2024 Immature granulocytes/100 WBC (Bld) 0.500 % 0.0-0.9 [facility] Comment on above: IG% - Immature Granu locytes (promyelocytes, myelocytes and metamyelocytes) > 1% indicates that a LEFT SHIFT is Present. Ketones Test strip Ql (U)Ord ered By: Shiv Roper on 09-29-2024 Ketones Ql (U) Negative Negative [facility] Laboratory - Chemistry and C hemistry - challengeOrdered By: Russell Agarwal on 09-29-2024 AST [Catalytic activity/Vol] 43 U/L High <32 [facility] Lipaseon 09-29-2024 Lipase [Catalytic activity/Vol] 37 U/L Normal 13-75 [facility] Comment on above: Result Comment: Darrick lee note: LIPASE revised reference range effective 22. New Lipase methodology. Expected to produce lower values than the previous assay method. NEW Reference Range: 13 - 75 U/L Performed By: #### L 500.4050, L501.2450, L100.0100 ####[facility] [address] [place], [address] Lipase measurementOrdered By : Russell Agarwal on 09-29-2024 Lipase [Catalytic activity/Vol] 37 U/L 13-75 [facility] Comment on above: Please note:LIPASE r evised reference range effective 22. New Lipase methodology. Expected to produce lower values than the previous assay method. NEW Reference Range: 13 - 75 U/L Lymphocytes Auto (Unsp spec) [#/Vol]Ordered By: Russell Agarwal on 09-29-2024 Lymphocytes (Bld) [#/Vol] 3.89 10*3/uL 0.83-4.51 [facility] Lymphocytes/100 WBC Auto (Un sp spec)Ordered By: Russell Agarwal on 09-29-2024 Lymphocytes/100 WBC (Bld) 25.9 % 19-41 [facility] MCV (mean corpuscular volume ) determinationOrdered By: Russell Agarwal on 09-29-2024 MCV (RBC) [Entitic vol] 87.2 fL 81-99 [facility] Mean corpuscular hemoglobin (MCH) determinationOrdered By: Russell Agarwal on 09-29-2024 MCH (RBC) [Entitic mass] 30.2 pg 27.0-32.0 [facility] Mean corpuscular hemoglobin concentration (MCHC) determinationOrdered By: Russell Agarwal on 09-29-2024 MCHC (RBC) [Mass/Vol] 34.7 g/dL 32-36 [facility] Mean platelet volume determi nationOrdered By: Russell Agarwal on 09-29-2024 Platelet mean volume (Bld) [Entitic vol] 9.4 fL 6.2-12.0 [facility] Microscopic analysis of urin e for red blood cells (RBC)Ordered By: Shiv Roper on 09-29-2024 Microscopic analysis of urine for red blood cells (RBC) 10-25 SEEN /hpf 0-5 [facility] Urine RBC 10-25 SEEN /hpf 0-5 [facility] Monocyte percentageOrdered B y: Russell Agarwal on 09-29-2024 Monocytes/100 WBC (Bld) 5.8 % 0-10 [facility] Mucus LM Ql (Urine sed)Order ed By: Shiv Roper on 09-29-2024 Mucus Ql (Urine sed) 0 SEEN /hpf [facility] Neutrophil percentageOrdered By: Russell Agarwal on 09-29-2024 Neutrophils/100 WBC (Bld) 66.7 % 47-70 [facility] Nitrite Test strip Ql (U)Ord ered By: Shiv Roper on 09-29-2024 Nitrite Ql (U) Negative Negative [facility] Nucleated red blood cell per centageOrdered By: Russell Agarwal on 09-29-2024 Nucleated RBC/100 WBC (Bld) [Ratio] 0 % 0-5 [facility] Platelet countOrdered By: Aditya Agarwal on 09-29-2024 Platelets (Bld) [#/Vol] 503 10*3/uL High 150-450 [facility] Potassium (Unsp spec) [Mass/ Vol]Ordered By: Russell Agarwal on 09-29-2024 Potassium [Moles/Vol] 3.8 mmol/L 3.3-5.1 [facility] Potassium measurement (mass/ volume)Ordered By: Russell Agarwal on 09-29-2024 Potassium (Unsp spec) [Mass/Vol] 3.8 mmol/L 3.3-5.1 [facility] ,Urineon 09-29-2024 Beta HCG ( test) Ql (U) Negative Normal [facility] Comment on above: Result Comment: Very dilute urine specimens, as indicated by a low specific gravity, may not contain brand representative levels of hCG. If is still suspected, a first morning urine specimen should be collected 48 hours later and tested. Performed By: #### L 400.0001, L400.7600 ####[facility] [address] [place], [place], [address] Protein Test strip Ql (U)Ord ered By: Shiv Roper on 09-29-2024 Protein Ql (U) 15 mg/dl High Negative [facility] RBC Auto (Bld) [#/Vol]Ordere d By: Russell Agarwal on 09-29-2024 RBC (Bld) [#/Vol] 4.83 10*6/uL 4.2-5.4 [facility] Serum creatinine measurement (mass/volume)Ordered By: Russell Agarwal on 09-29-2024 Creatinine [Mass/Vol] 0.84 mg/dL 0.70-1.20 [facility] Serum globulin measurementOr dered By: Russell Agarwal on 09-29-2024 Globulin (S) [Mass/Vol] 3.8 g/dL 2.2-4.2 [facility] Serum glucose measurement (m ass/volume)Ordered By: Russell Agarwal on 09-29-2024 Glucose [Mass/Vol] 84 mg/dL 70-99 [facility] Serum or plasma alanine nath otransferase (ALT) measurementOrdered By: Russell Agarwal on 09-29-2024 ALT [Catalytic activity/Vol] 68 U/L High <35 [facility] Serum or plasma albumin lawrence urement (mass/volume)Ordered By: Russell Agarwal on 09-29-2024 Albumin [Mass/Vol] 4.3 g/dL 3.5-5.0 [facility] Serum or plasma albumin/glob ulin mass ratioOrdered By: Russell Agarwal on 09-29-2024 Albumin/Globulin [Mass ratio] 1.2 {ratio} 0.9-2.4 [facility] Serum or plasma alkaline charisse sphatase measurementOrdered By: Russell Agarwal on 09-29-2024 ALP [Catalytic activity/Vol] 80 U/L 35-104 [facility] Serum or plasma calcium lawrence urement (mass/volume)Ordered By: Russell Agarwal on 09-29-2024 Calcium [Mass/Vol] 9.0 mg/dL 7.6-11.0 [facility] Serum or plasma urea nitroge n measurement (mass/volume)Ordered By: Russell Agarwal on 09-29-2024 Urea nitrogen [Mass/Vol] 8 mg/dL 4-19 [facility] Sodium levelOrdered By: Russell Agarwal on 09-29-2024 Sodium [Moles/Vol] 138 mmol/L 133-145 [facility] Squamous epithelial cells de tection in urine sediment by light microscopyOrdered By: Shiv Roper on 09-29-2024 Epithelial cells.squamous LM Ql (Urine sed) 0-5 SEEN /hpf 5-10 [facility] Total proteinOrdered By: Marisela Agarwal on 09-29-2024 Protein [Mass/Vol] 8.1 g/dL 5.9-8.4 [facility] Urinalysis, Completeon 09-29 EPI,SQUAMOUS 0-5 SEEN Normal 5-10 [facility] Comment on above: Order Comment: CLEAN CATCH Performed By: #### L 400.0001, L400.7600 ####[facility] [address] [place], [address] RBC 10-25 SEEN Normal 0-5 [facility] Comment on above: Order Comment: CLEAN CATCH Performed By: #### L 400.0001, L400.7600 ####[facility] [address] [place], [address] BACTERIA 0 SEEN Normal None Seen [facility] Comment on above: Order Comment: CLEAN CATCH Performed By: #### L 400.0001, L400.7600 ####[facility] [address] [place], [address] Mucus Ql (Urine sed) 0 SEEN Normal [facility] Comment on above: Order Comment: CLEAN CATCH Performed By: #### L 400.0001, L400.7600 ####[facility] [address] [place], [address] WBC 0 SEEN Normal 0-5 [facility] Comment on above: Order Comment: CLEAN CATCH Performed By: #### L 400.0001, L400.7600 ####[facility] [address] [place], [address] Urine blood detectionOrdered By: Shiv Roper on 09-29-2024 Urine Occult Blood 250 /ul High Negative [facility] Urine clarityOrdered By: Amy Roper on 09-29-2024 Clarity (U) Clear Clear [facility] Urine color determinationOrd ered By: Shiv Roper on 09-29-2024 Color (U) Yellow Yellow [facility] Urine glucose detectionOrder ed By: Shiv Roper on 09-29-2024 Glucose Ql (U) Normal mg/dl Normal [facility] Urine leukocyte esterase det ection by dipstickOrdered By: Shiv Roper on 09-29-2024 Leukocyte esterase Test strip Ql (U) Negative Negative [facility] Urine pHOrdered By: Shiv hall on 09-29-2024 pH (U) 7.0 [pH] 5.0 - 8.0 [facility] Urine testOrdered By: Shiv Roper on 09-29-2024 HCG ( test) Ql (U) Negative [facility] Comment on above: Very dilute urine sp ecimens, as indicated by a low specificgravity, may not contain brand representative levels of hCG. If is still suspected, a first morning urinespecimen should be collected 48 hours later and tested. Urine sediment bacteria coun t by microscopy (number/high power field)Ordered By: Shiv Roper on 09-29-2024 Bacteria LM.HPF (Urine sed) [#/Area] 0 /[HPF] None Seen [facility] Urine specific gravity measu rementOrdered By: Shiv Roper on 09-29-2024 Specific gravity (U) [Rel density] 1.010 1.002-1.030 [facility] Urine urobilinogen measureme ntOrdered By: Shiv Roper on 09-29-2024 Urobilinogen Ql (U) Normal mg/dl Normal [facility] Urobilinogen Ql (U)Ordered B y: Shiv Roper on 09-29-2024 Urine Urobilinogen Normal mg/dl Normal [facility] White blood cell (WBC) count Ordered By: Russell Agarwal on 09-29-2024 WBC (Bld) [#/Vol] 15.0 10*3/uL High 4.4-11.0 [facility] White blood cell countOrdere d By: Shiv Roper on 09-29-2024 Urine WBC 0 SEEN /hpf 0-5 [facility] White blood cell count 0 SEEN /hpf 0-5 [facility] CNOVon 08-30-2024 CNOV Office Visit ([facility] ) ----- KATIE FORDE ([id number]) 2000 F Date Time Provider Department 08/30/24 1:20 PM SANTI MCALLISTER During your visit today, we recorded the following information about you: Pulse Respiration Blood pressure Weight 93/minute 14/minute 118/74 135.6 kg Height Last Period 1.829 m 08/06/24 Santi Mcallister MD 08/30/2024 2:34 PM Signed Santi Mcallister MD Interventional Cardiology [address] [phone] Chief Complaint Patient presents with: Follow Up: [...] Meter 1 (more content not included)... Normal [facility] [id number] 08-30-2024 ECG01 Ventricular Rate : 9 0 BPM Atrial Rate : 90 BPM P-R Interval : 150 ms QRS Duration : 76 ms Q-T Interval : 374 ms QTC Calculation(Bazett) : 457 ms Calculated P [place] : 58 degrees Calculated R [place] : 37 degrees Calculated T [place] : 53 degrees NORMAL SINUS RHYTHM NORMAL ECG Confirmed by MD SANTOS QARAB ([id number]) on 08/31/2024 12:57:53 PM NAME : KATIE FORDE PID : [id number] : 2000 Gender : Female Race : ORD : Procedure Date : Aug 30 2024 13:24:52 Edit Date : Aug 31 2024 12:57:56 Diagnosis: NORMAL SINUS RHYTHM NORMAL ECG Confirmed by MD SANTOS QARAB ([id number]) on 08/31/2024 12:57:53 PM Test Reason : [facility] By : MD SANTOS QARAB Edited By : MD SANTOS QARAB Referred By : , Acquired by : Nuris shipley [facility] CNOVon 08-24-2024 [facility] ----- KATIE FORDE ([id number]) 2000 F Date Time Provider Department 08/24/24 10:15 AM RADHA LONG [facility] During your visit today, we recorded the following information about you: Temperature Pulse Respiration Blood pressure 98 degrees 104/minute 16/minute 118/78 Weight 136.7 kg Radha Long PA-C 08/24/2024 10:36 AM Signed This note was created using [employer]. Subjective Katie Forde is a 23 year [...] BENZONATATE 100 MG CAPSULE Radha Long PA-C Allergies As of Date: 08/24/2024 (No Known [...] 2024. - (more content not included)... Normal [facility] CBC panel Auto (Bld)on 08-09 Erythrocyte distribution width (RBC) [Ratio] 12.4 % 11.5 - 15.0 % [facility] Hematocrit (Bld) [Volume fraction] 43.7 % 36.0 - 46.0 % [facility] Hemoglobin (Bld) [Mass/Vol] 14.6 g/dL 11.5 - 15.5 g/dL [facility] Interpretation and review of laboratory results Abnormal [facility] MCH (RBC) [Entitic mass] 29.9 pg 26.0 - 34.0 pg [facility] MCHC (RBC) [Mass/Vol] 33.4 g/dL 30.5 - 36.0 g/dL [facility] MCV (RBC) [Entitic vol] 89.5 fL 80.0 - 100.0 fL [facility] Nucleated RBC (Bld) [#/Vol] NINF [facility] Platelet mean volume (Bld) [Entitic vol] 10.1 fL 9.0 - 12.7 fL [facility] Platelets (Bld) [#/Vol] 488 10*3/uL High [facility] RBC (Bld) [#/Vol] 4.88 10*6/uL 3.90 - 5.2 0 m/uL [facility] WBC (Bld) [#/Vol] 12.44 10*3/uL High [facility] Erythrocyte distribution width (RBC) [Ratio] 12.4 % Normal 11.5-15.0 [facility] Comment on above: Order Comment: Speci men Type: BLOOD SPECIMENOrdering Facility: [facility] Address: [address] [place] [address] Performed By: #### 5 8410-2, 4537-7 ####[facility] LABIA [id number] [place] [address] [place] Hematocrit (Bld) [Volume fraction] 43.7 % Normal 36.0-46.0 [facility] Comment on above: Order Comment: Speci men Type: BLOOD SPECIMENOrdering Facility: [facility] Address: [address] [place] [address] Performed By: #### 5 8410-2, 4537-7 ####[facility]IA [id number] [place] [address] [place] Hemoglobin (Bld) [Mass/Vol] 14.6 g/dL Normal 11.5-15.5 [facility] Comment on above: Order Comment: Speci men Type: BLOOD SPECIMENOrdering Facility: [facility] Address: [address] [place] [address] Performed By: #### 5 8410-2, 4537-7 ####[facility] LABCLIA [id number] [place] [address] [place] MCH (RBC) [Entitic mass] 29.9 pg Normal 26.0-34.0 [facility] Comment on above: Order Comment: Speci men Type: BLOOD SPECIMENOrdering Facility: [facility] Address: [address] [place] [address] Performed By: #### 5 8410-2, 4537-7 ####[facility] LABCLIA [id number] [place] [address] [place] MCHC (RBC) [Mass/Vol] 33.4 g/dL Normal 30.5-36.0 [facility] Comment on above: Order Comment: Speci men Type: BLOOD SPECIMENOrdering Facility: [facility] Address: [address] [place] [address] Performed By: #### 5 8410-2, 4537-7 ####[facility] LABIA [id number] [place] [address] [place] MCV (RBC) [Entitic vol] 89.5 fL Normal 80.0-100.0 [facility] Comment on above: Order Comment: Speci men Type: BLOOD SPECIMENOrdering Facility: [facility] Address: [address] [place] [address] Performed By: #### 5 8410-2, 4537-7 ####[facility] LABIA [id number] [place] [address] [place] Nucleated RBC (Bld) [#/Vol] 10*3/uL Normal <0.01 [facility] Comment on above: Order Comment: Speci men Type: BLOOD SPECIMENOrdering Facility: [facility] Address: [address] [address] Performed By: #### 5 8410-2, 4537-7 ####[facility] LABIA [id number] [place] [address] [place] Platelet mean volume (Bld) [Entitic vol] 10.1 fL Normal 9.0-12.7 [facility] Comment on above: Order Comment: Speci men Type: BLOOD SPECIMENOrdering Facility: [facility] [facility] Address: [address] [place] [address] Performed By: #### 5 8410-2, 4537-7 ####[facility] LABIA [id number] [place] [address] [place] Platelets (Bld) [#/Vol] 488 10*3/uL High 150-400 [facility] Comment on above: Order Comment: Speci men Type: BLOOD SPECIMENOrdering Facility: [facility] Address: [address] [place] [address] Performed By: #### 5 8410-2, 4537-7 ####[facility] LABIA [id number] [place] [address] [place] RBC (Bld) [#/Vol] 4.88 10*6/uL Normal 3.90-5.20 [facility] Comment on above: Order Comment: Speci men Type: BLOOD SPECIMENOrdering Facility: [facility] Address: [address] [place] [address] Performed By: #### 5 8410-2, 4537-7 ####[facility] [id number] [place] [address] [place] WBC (Bld) [#/Vol] 12.44 10*3/uL High 3.70-11.00 [facility] Comment on above: Order Comment: Speci men Type: BLOOD SPECIMENOrdering Facility: [facility] Address: [address] [place] [address] Performed By: #### 5 8410-2, 4537-7 ####[facility] [id number] [place] [address] [place] CK SerPl-cCncon 08-09-2024 CK [Catalytic activity/Vol] 76 U/L Normal 42-196 [facility] Comment on above: Order Comment: Speci men Type: BLOOD SPECIMENOrdering Facility: [facility] Address: [address] [place] [address] Performed By: #### 1 988-5, 2157-6, 69356-2 ####[facility] COLLIN [id number] [id number] [id number] [place] CNOVon 08-09-2024 CNOV Office Visit (INTMWS ) ----- KATIE FORDE ([id number]) 2000 F Date Time Provider Department 08/09/24 10:20 AM KATE SILVA INTMWS During your visit today, we recorded the following information about you: Pulse Respiration Blood pressure Weight 86/minute 16/minute 103/61 136 kg Kate Silva MD 08/09/2024 11:21 PM Signed This note was created using Posh Eyes. Subjective Katie Forde is a 23 year [...] 17 but not filled by her pharmacy, [email or web address]. She also requests medication for nausea and eczema. She is due for a Pap smear and a vulvar biopsy due to recurrent yeast infections, as recommended by her inpatient pharmacist. PAST MEDICAL HISTORY Diagnosis Date ADHD (attention [...] for nausea/vo (more content not included)... Normal [facility] CRP SerPl-ncon 08-09-2024 CRP [Mass/Vol] 1.6 mg/dL High <0.9 [facility] Comment on above: Order Comment: Speci men Type: BLOOD SPECIMENOrdering Facility: [facility] Address: [address] [place] [address] Performed By: #### 1 988-5, 2157-6, 43796-4 ####[facility] LABCLIA [id number] [place] [address] [place] Comprehensive metabolic 2000 panelon 08-09-2024 Albumin [Mass/Vol] 4.2 g/dL Normal 3.9-4.9 [facility] Comment on above: Order Comment: Speci men Type: BLOOD SPECIMENOrdering Facility: [facility] Address: [address] [place] [address] Performed By: #### 1 988-5, 2157-6, 58973-0 ####[facility] LABCLIA [id number] [place] [address] [place] ALP [Catalytic activity/Vol] 75 U/L Normal 34-123 [facility] Comment on above: Order Comment: Speci men Type: BLOOD SPECIMENOrdering Facility: [facility] Address: [address] [place] [address] Performed By: #### 1 988-5, 6, ####[facility] LABCLIA [id number] [place] [address] [place] ALT [Catalytic activity/Vol] 50 U/L High 7-38 [facility] Comment on above: Order Comment: Speci men Type: BLOOD SPECIMENOrdering Facility: [facility] Address: [address] [place] [address] Performed By: #### 1 988-5, 2156-11, ####[facility] LABCLIA [id number] [place] [address] [place] Anion gap [Moles/Vol] 12 mmol/L Normal 8-15 [facility] Comment on above: Order Comment: Speci men Type: BLOOD SPECIMENOrdering Facility: [facility] Address: [address] [place] [address] Performed By: #### 1 988-5, 2156-11, ####[facility] LABCLIA [id number] [place] [address] [place] AST [Catalytic activity/Vol] 41 U/L High 13-35 [facility] Comment on above: Order Comment: Speci men Type: BLOOD SPECIMENOrdering Facility: [facility] Address: [address] [place] [address] Performed By: #### 1 988-5, 2156-11, ####[facility] LABCLIA [id number] [place] [address] [place] Bilirubin [Mass/Vol] 0.3 mg/dL Normal 0.2-1.3 [facility] Comment on above: Order Comment: Speci men Type: BLOOD SPECIMENOrdering Facility: [facility] Address: [address] [place] [address] Performed By: #### 1 988-5, 2156-11, ####[facility] LABCLIA [id number] [facility] [place] [address] [place] Calcium [Mass/Vol] 9.1 mg/dL Normal 8.5-10.2 [facility] Comment on above: Order Comment: Speci men Type: BLOOD SPECIMENOrdering Facility: [facility] Address: [address] [place] [address] Performed By: #### 1 988-5, 2156-11, ####[facility] LABCLIA [id number] [place] [address] [place] Chloride [Moles/Vol] 104 mmol/L Normal 98-107 [facility] Comment on above: Order Comment: Speci men Type: BLOOD SPECIMENOrdering Facility: [facility] Address: [address] [place] [address] Performed By: #### 1 988-5, 2156-11, ####[facility] LABCLIA [id number] [place] [address] [place] CO2 [Moles/Vol] 21 mmol/L Low 22-30 [facility] Comment on above: Order Comment: Speci men Type: BLOOD SPECIMENOrdering Facility: [facility] Address: [address] [place] [address] Performed By: #### 1 988-5, 2156-11, ####[facility] LABCLIA [id number] [facility] [address] [address] [place] Creatinine [Mass/Vol] 0.80 mg/dL Normal 0.58-0.96 [facility] Comment on above: Order Comment: Speci men Type: BLOOD SPECIMENOrdering Facility: [facility] Address: [address] [place] [address] Performed By: #### 1 988-5, 2157-6, 66440-6 ####[facility] LABIA [id number] [place] [address] [place] Creatinine and Glomerular filtration rate.predicted panel (S/P/Bld) 105 mL/min/1.73m??? Normal >=60 [facility] Comment on above: Order Comment: Lore buitrago Type: BLOOD SPECIMENOrdering Facility: [facility] Address: [address] [place] [address] Result Comment: Shantal mated Glomerular Filtration Rate [...] accurately reflect actual GFR. Performed By: #### 1 988-5, 2157-6, 06885-7 ####[facility] LABIA [id number] [place] [id number] [place] Glucose [Mass/Vol] 62 mg/dL Low 74-99 [facility] Comment on above: Order Comment: Lore buitrago Type: BLOOD SPECIMENOrdering Facility: [facility] Address: [address] [place] [address] Result Comment: The [place] Diabetes Association (ADA) provides guidance for cutoff [...] Standards of Medical Care in Diabetes 2016, [place] Diabetes Association. Diabetes Care. 2016.39(Suppl 1). Performed By: #### 1 988-5, 2156-11, 18248-8 ####[facility] LABCLIA [id number] [address] [address] [place] Potassium [Moles/Vol] 4.1 mmol/L Normal 3.7-5.1 [facility] Comment on above: Order Comment: Speci men Type: BLOOD SPECIMENOrdering Facility: [facility] Address: [address] [place] [address] Performed By: #### 1 988-5, 2156-11, ####[facility] LABCLIA [id number] [address] [address] [place] Protein [Mass/Vol] 7.6 g/dL Normal 6.3-8.0 [facility] Comment on above: Order Comment: Speci men Type: BLOOD SPECIMENOrdering Facility: [facility] Address: [address] [place] [address] Performed By: #### 1 988-5, 2156-11, ####[facility] LABCLIA [id number] [address] [address] [place] Sodium [Moles/Vol] 137 mmol/L Normal 136-144 [facility] Comment on above: Order Comment: Speci men Type: BLOOD SPECIMENOrdering Facility: [facility] Address: [address] [place] [address] Performed By: #### 1 988-5, 2156-11, ####[facility] LABCLIA [id number] [address] [address] [place] Urea nitrogen [Mass/Vol] 8 mg/dL Normal 7-21 [facility] Comment on above: Order Comment: Speci men Type: BLOOD SPECIMENOrdering Facility: [facility] Address: [address] [place] [address] Performed By: #### 1 988-5, 2157-6, 44212-6 ####[facility] LABIA [id number] [place] [address] [place] ESR Westergren method (Bld) [Velocity]on 08-09-2024 ESR (Bld) [Velocity] 32 mm/h High [facility] Interpretation and review of laboratory results Abnormal [facility] ESR (Bld) [Velocity] 32 mm/h High 0-20 [facility] Comment on above: Order Comment: Kareni men Type: BLOOD SPECIMENOrdering Facility: [facility] Address: [address] [place] [address] Performed By: #### 5 8410-2, 4537-7 ####[facility] LABIA [id number] [address] [place] HbA1c (Bld)on 08-09-2024 Average glucose Estimated from glycated hemoglobin (Bld) [Mass/Vol] 94 mg/dL Normal [facility] Comment on above: Order Comment: Lore buitrago Type: BLOOD SPECIMENOrdering Facility: [facility] Address: [address] [place] [address] Result Comment: eAG: (Estimated average glucose) is a calculated value from HgbA1c and is brand representative of the average blood glucose level in the last 2-3 month period. Performed By: #### 5 5454-3 ####[facility] [id number] [place] [address] [place] HbA1c (Bld) [Mass fraction] 4.9 % Normal 4.3-5.6 [facility] Comment on above: Order Comment: Lore buitrago Type: BLOOD SPECIMENOrdering Facility: [facility] Address: [address] [place] [address] Result Comment: [place] Diabetes Association guidelines indicate that patients with HgbA1c in the range 5.7-6.4% are at increased risk for development of diabetes, and intervention by lifestyle modification may be beneficial. HgbA1c greater or equal to 6.5% is considered diagnostic of diabetes. Performed By: #### 5 5454-3 ####[facility] [id number] [facility] [id number] [place] [address] [place] CNOVon 05-19-2024 CNOV Office Visit (UCWSTR ) ----- KATIE FORDE ([id number]) 2000 F Date Time Provider Department 05/19/24 9:45 AM ARTHUR JOSEPH WSTR During your visit today, we recorded the following information about you: Temperature Pulse Respiration Blood pressure 97.6 degrees 97/minute 18/minute 120/82 Weight 137.6 kg Arthur Joseph PA-C 05/19/2024 12:09 PM Signed This note was created using Posh Eyes. Subjective Katie Forde is a 23 year [...] and externa (more content not included)... Normal [facility] BACTERIAL VAGINOSIS NAATon 1 07-12-2023 Lactobacillus crispatus+gasseri+agustina senii + Gardnerella vaginalis + Atopobium vaginae rRNA EDMOND+probe Ql (Vag fld) Negative Normal Negative for bacterial vaginosis [facility] Comment on above: Order Comment: Speci men Type: SWABOrdering Facility: [facility] Address: [address] [place] [address] Performed By: #### C VTV, BVAMP ####[facility] LABCLIA [id number] [place] [address] [place] YEIMY/TRICHOMONAS NAATon 07-12-2023 C. glabrata RNA EDMOND+probe Ql (Vag fld) Negative Normal Negative for Yeimy glabrata [facility] Comment on above: Order Comment: Speci men Type: SWABOrdering Facility: [facility] Address: [address] [place] [address] Performed By: #### C VTV, BVAMP ####[facility] LABCLIA [id number] [place] [address] [place] Yeimy sp DNA EDMOND+probe Ql (Vag fld) Negative Normal Negative for Yeimy species [facility] Comment on above: Order Comment: Speci men Type: SWABOrdering Facility: [facility] Address: [address] [place] [address] Performed By: #### C VTV, BVAMP ####[facility] LABCLIA [id number] [address] [place] T. vaginalis DNA EDMOND+probe Ql (Unsp spec) Negative Normal Negative for Trichomonas vaginalis by amplification [facility] Comment on above: Order Comment: Speci men Type: SWABOrdering Facility: [facility] Address: [address] [place] [address] Performed By: #### C VTV, BVAMP ####[facility] LABCLIA [id number] [address] [place] CNOVon 05-12-2024 CNOV Office Visit (OBGYWM ) ----- KATIE FORDE ([id number]) 2000 F Date Time Provider Department 05/12/24 4:00 PM REBECA BEASLEY During your visit today, we recorded the following information about you: Blood pressure Weight 120/80 136.6 kg Rebeca Beasley APRN.CNM 05/12/2024 4:49 PM Signed Compounder offered: Patient declines. 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 Normal [facility] UA DIP, URINE (POC)on 2023 BILIRUBIN UA (POCT) Negative Negative [facility] CLARITY UA (POCT) Slightly Cloudy Cl [facility] COLOR UA (POCT) Yellow [facility] GLUCOSE UA (POCT) Negative Negative mg/dL [facility] Hemoglobin Ql (U) Trace-lysed Abnormal Negative [facility] Interpretation and review of laboratory results Abnormal [facility] KETONE UA (POCT) Negative Negative mg/dL [facility] LEUKOCYTES UA (POCT) Trace Abnormal Negative [facility] NITRITE UA (POCT) Negative Negative [facility] PH UA (POCT) 5.5 4.5 - 8.0 [facility] Protein Ql (U) Negative Negative mg/dL [facility] SPECIFIC GRAVITY UA (POCT) >=1.030 1.005 - 1.030 [facility] UROBILINOGEN UA (POCT) 0.2 Normal E.U./dL [facility] Location:[address], [address] [place] [address] POINT OF CARE [facility] 17-Hydroxyprogesterone [Mass /Vol]on 01-29-2024 [facility] HYDROXYPROGESTERONE-17on 17-Hydroxyprogesteron e [Mass/Vol] 21.22 ng/dL NINF - 206.00 ng/dL [facility] Comment on above: INTERPRETIVE INFORMATION for 17-Hydroxyprogesterone in females: Follicular 15 to 70 ng/dL Luteal 35 to 290 ng/dL REFERENCE INTERVAL: 17-Hydroxyprogesterone Qnt, HPLC-MS/MS Access complete set of age- and/or gender-specific reference intervals for this test in the [facility] Test Directory ([employer]). This test was developed and its performance characteristics determined by [facility]. It has not been cleared or approved by the US Food and Drug Administration. This test was performed in a CLIA certified laboratory and is intended for clinical purposes. Performed By: [facility] [address] [place] [address] Rewards Consultant: Yared Curry MD, PhD CLIA Number: [id number] DHEA-S [facility] 01-24-2024 DHEA-S [Mass/Vol] 139.2 ug/dL 98.8 - 340 .0 ug/dL [facility] Comment on above: Reference ranges are age and gender specific. For additional information, reference range tables can be found in the laboratory test directory. The normal values are based on the following source: Dehydroepiandrosterone sulfate (DHEA S) [package insert V 17.0 [place]]. [employer], [place], [place]: January 2013. Interpretation and review of laboratory results Normal [facility] ESTRADIOL-17B BLDon 01-24-20 24 E2 [Mass/Vol] 126 pg/mL [facility] Comment on above: This test is not [...] 3243 pg/mL Second trimester : 1561 to 75844 pg/mL Third trimester : 8285 to >07921 pg/mL Post-menopausal Estradiol reference range: < 41 pg/mL Reference: 1. Estradiol - E2 (Estradiol III) [package insert V 3.0 [place]]. [employer], [place], [place], November 2015. FOLLICLE STIMULATING HORMONE on 01-24-2024 Follitropin Qn 2.8 m[IU]/mL See comment mIU/mL [facility] Comment on above: Reference range: Follicular: 3.5-12.5 mIU/mL Ovulation: 4.7-21.5 mIU/mL Luteal: 1.7-7.7 mIU/mL Postmenopausal: 25.8-134.8 mIU/mL HbA1c (Bld)on 01-24-2024 Average glucose Estimated from glycated hemoglobin (Bld) [Mass/Vol] 143 mg/dL [facility] Comment on above: eAG: (Estimated aver age glucose) is a calculated value from HgbA1c and is brand representative of the average blood glucose level in the last 2-3 month period. HbA1c (Bld) [Mass fraction] 6.6 % High 4.3 - 5.6 % [facility] Comment on above: [place] Diabetes As sociation guidelines indicate that patients with HgbA1c in the range 5.7-6.4% are at increased risk for development of diabetes, and intervention by lifestyle modification may be beneficial. HgbA1c greater or equal to 6.5% is considered diagnostic of diabetes. Interpretation and review of laboratory results Abnormal [facility] LUTEINIZING HORMONEon 2023 Lutropin Qn 5.5 m[IU]/mL See comment mIU/mL [facility] Comment on above: Reference range: Follicular: 2.4-12.6 mIU/mL Midcycle: 14.0-95.6 mIU/mL Luteal: 1.0-11.4 mIU/mL Post Leeanne: 7.7-58.5 mIU/mL No Panel Informationon 01-23 [facility] Interpretation and review of laboratory results Normal [facility] PROLACTINon 01-24-2024 Prolactin [Mass/Vol] 23.4 ng/mL 4.5 - 2 6.8 ng/mL [facility] Comment on above: Prolactin test is pe rformed using the [employer] Electrochemiluminescence Immunoassay method. Results obtained with different methods or kits cannot be used interchangeably. THYROID STIMULATING HORMONEo n 01-24-2024 TSH Qn 0.969 m[IU]/L [facility] Comment on above: If the patient is [...] Escobar, et al. 2017 Guidelines of the [place] Thyroid Association for the Diagnosis and Management of Thyroid Disease during and the . Thyroid, 2017:27:3:315-389. [place] [facility] 01-23-2024 [facility] Radiology Study observation (narrative) [facility] XR Foot - left AP and Latera l and obliqueon 12-22-2023 IMPRESSION: No acute osseous abnormality Software Validation Technician: SILVIANO Transcribe Date/Time: Dec 22 2023 4:56P Dictated by : STEPHANI VEGA MD This examination was interpreted and the report reviewed and electronically signed by: STEPHANI VEGA MD on Dec 22 2023 4:58PM [facility] * * *Final Report* [...] spaces are maintained. DIVISION OF RADIOLOGY Provider, [facility] - 12/22/2023 * * *Final Report* * [...] maintained. IMPRESSION IMPRESSION: No acute osseous abnormality Software Validation Technician: SILVIANO Transcribe Date/Time: Dec 22 2023 4:56P Dictated by : STEPHANI VEGA MD This examination was interpreted and the report reviewed and electronically signed by: STEPHANI VEGA MD on Dec 22 2023 4:58PM [facility] Radiology Study observation (narrative) [facility] XR Foot - left AP and Latera l and obliqueOrdered By: Ccf Provider on 12-22-2023 [facility] XR Hand - right PA and Later al and Obliqueon 12-17-2023 IMPRESSION: NORMAL APPEARANCE OF THE RIGHT HAND Software Validation Technician: PSCB Transcribe Date/Time: Dec 17 2023 10:37A Dictated by : LOIDA RECIO MD This examination was interpreted and the report reviewed and electronically signed by: LOIDA RECIO MD on Dec 17 2023 10:39AM [facility] * * *Final Report* * * DATE OF EXAM: Dec 17 2023 9:52AM WOX [id number] - XR HAND 3V PA/LAT/OBL RT / PROCEDURE REASON: Right hand pain * * * * Physician Interpretation * * * * Examination: XR HAND 3V PA/LAT/OBL RT History: Right hand pain Punched a headboard 07/25/2023. Ongoing pain. Third MCP joint swelling at the terrence e of incident. Technique: XR HAND 3V PA/LAT/OBL RT Comparison: None RESULT: No evidence of fracture or bony abnormality. Normal mineralization and alignment. Joint spaces are maintained. DIVISION OF RADIOLOGY Provider, [facility] - 12/17/2023 * * *Final Report* * * DATE OF EXAM: Dec 17 2023 9:52AM WOX [id number] - XR HAND 3V PA/LAT/OBL RT / PROCEDURE REASON: Right hand pain * * * * Physician Interpretation * * * * Examination: XR HAND 3V PA/LAT/OBL RT History: Right hand pain Punched a headboard 07/25/2023. Ongoing pain. Third MCP joint swelling at the terrence e of incident. Technique: XR HAND 3V PA/LAT/OBL RT Comparison: None RESULT: No evidence of fracture or bony abnormality. Normal mineralization and alignment. Joint spaces are maintained. IMPRESSION IMPRESSION: NORMAL APPEARANCE OF THE RIGHT HAND Software Validation Technician: PSCB Transcribe Date/Time: Dec 17 2023 10:37A Dictated by : LOIDA RECIO MD This examination was interpreted and the report reviewed and electronically signed by: LOIDA RECIO MD on Dec 17 2023 10:39AM EST [facility] Radiology Study observation (narrative) [facility] XR Hand - right PA and Later al and ObliqueOrdered By: Ccf Provider on 12-17-2023 [facility] BRIEF OP NOTon 11-21-2023 BRIEF OP NOT HNO ID: [id number] Author: RASTA DUMONT MD Service: Interventional Radiology Author Type: Physician Type: Brief Op Note Filed: 11/21/2023 11:09 Note Text: INTERVENTIONAL RADIOLOGY POST PROCEDURE NOTE DATE: 11/21/23 NAME: Katie Forde LOG ID: [id number] Pre-Procedure Diagnosis: NAFLD Oval Or Circular Glass Cutter: Surgeon(s) and Role: * Rasta Dumont MD, [...] Care HISTORY PHYSICALon HISTORY PHYSICAL HNO ID: [id number] Author: RASTA DUMONT MD Service: Interventional Radiology [...] Lore buitrago Type: TISSUE SPECIMEN [facility] Address: [address] [place] [address] Result Comment: Surg ica Pathology Report Case: [id number] Authorizing Provider: Rasta Dumont, Collected: 11/21/2023 10:53 AM MD MARCELA Ordering Location: [facility] Received: 11/21/2023 12:44 PM INTERVENTIONAL RADIOLOGY Pathologist: Scott Worthy MD Specimen: Liver, Biopsy Performed By: #### S #### [facility] CLIA [id number] STATES OF [facility] CLINICAL HISTORY NAFLD Normal [facility] Comment on above: Order Comment: Lore buitrago Type: TISSUE SPECIMEN Ordering Facility: [facility] Address: [address] [place] [address] Performed By: #### S #### [facility] CLIA [id number] [address] [place] [address] DIAGNOSIS COMMENT Normal [facility] Comment on above: Order Comment: Lore [facility] Type: TISSUE SPECIMEN Ordering Facility: [facility] Address: [address] [place] [address] Result Comment: The patient is a 22-year-old [...] no evidence of increased fibrosis (stage 0). Automobile Brake Bonder slides were reviewed by Dr. Zhen Eddy who agrees with this assessment. Performed By: #### S #### [facility] CLIA [id number] [address] [place] [address] FINAL DIAGNOSIS Normal [facility] Comment on above: Order Comment: Lore buitrago Type: TISSUE SPECIMEN Ordering Facility: [facility] Address: [address] [place] [address] Result Comment: Abbey lópez, core biopsy: - Steatohepatitis pattern of injury. No evidence of fibrosis. See comment. Performed By: #### S #### [facility] CLIA [id number] [address] [place] [address] FINAL PERFORMING LAB Normal [facility] Comment on above: Order Comment: Specmirta buitrago Type: TISSUE SPECIMEN Ordering Facility: [facility] Address: [address] [place] [address] Result Comment: Diag nostic interpretation performed at [facility], [address] [place] [address] CLIA# [id number] Rewards Consultant: Scott Worthy M.D. Performed By: #### S #### [facility] CLIA [id number] [address] [place] [address] GROSS DESCRIPTION Normal [facility] Comment on above: Order Comment: [facility] Type: TISSUE SPECIMEN Ordering Facility: [facility] Address: [address] [place] [address] Result Comment: Abbey lópez, Biopsy Received in formalin labeled as ``liver biopsy? are 3 fragmented segments of cylindrical tissue ranging from 1.6 to 2.2 cm in length with a thickness of 0.1 cm, leon and of a soft and slightly rubbery consistency. Totally submitted in formalin in 1 cassette. Gross examination performed at [facility], [address] [place] [address] CLIA# [id number] RSA November 21, 2023 3:24 PM Performed By: #### S #### [facility] CLIA [id number] [address] [place] [address] US BIOPSY LIVERon 11-21-2023 US BIOPSY LIVER * * *Final Report* * * DATE OF EXAM: Nov 21 2023 11:03AM [facility] 1073 - US BIOPSY LIVER / PROCEDURE [...] as described above. 2. No immediate complications. Software Validation Technician: PSCB Transcribe Date/Time: Nov 22 2023 12:44A Dictated by : RASTA DUMONT MD This examination was interpreted and the report reviewed and electronically signed by: RASTA DUMONT MD on Nov 22 2023 1:15AM EST [id number] Normal [facility] STREP A MOLECULAR (POC)on Procedural Control Valid [facility] Strep A (POCT) Negative Negative [facility] COVID & INFLUENZA A/B & RSV NAAT, ROUTINEon 08-18-2023 FLUAV RNA EDMOND+probe Ql (Unsp spec) Not detected Not Detected [facility] FLUBV RNA EDMOND+probe Ql (Unsp spec) Not detected Not Detected [facility] RSV A RNA EDMOND+probe Ql (Unsp spec) Not detected Not Detected [facility] SARS-CoV-2 (COVID-19) RNA EDMOND+probe Ql (Resp) Detected Abnormal See comment [facility] BACTERIAL VAGINOSIS NAATon 0 08-11-2023 Lactobacillus crispatus+gasseri+agustina senii + Gardnerella vaginalis + Atopobium vaginae rRNA EDMOND+probe Ql (Vag fld) Negative Negative for bacterial vaginosis [facility] YEIMY/TRICHOMONAS NAATon 0 08-11-2023 C. glabrata RNA EDMOND+probe Ql (Vag fld) Negative Negative for Yeimy glabrata [facility] Yeimy sp DNA EDMOND+probe Ql (Vag fld) Positive Abnormal Negative for Yeimy species [facility] T. vaginalis DNA EDMOND+probe Ql (Unsp spec) Negative Negative for Trichomonas vaginalis by amplification [facility] No Panel Informationon 04-28 [facility] US FEMALE PELVIS TRANSVAGon 04-17-2023 [facility] STREP A MOLECULAR (POC)on Procedural Control Valid [facility] Strep A (POCT) Negative Negative [facility] SPIROMETRY WITH DILATOR IF O BSTRUCTEDon 11-05-2022 SCS24-37% POST (L/S) 2.91 L/S [facility] FHR98-50% PRE (L/S) 2.83 L/S [facility] FEV1 PRE (L) 3.49 L [facility] FEV1/FVC POST (%) 76 % [facility] FEV1/FVC PRE (%) 73 % [facility] FEV1_POST (L) 3.50 L [facility] FVC POST (L) 4.61 L [facility] FVC PRE (L) 4.74 L [facility] PEF POST (L/S) 5.45 L/S [facility] PEF PRE (L/S) 5.78 L/S [facility] CTA CORONARY W IVCONon 10-31 CTA CORONARY W IVCON * * *Final Report* * * DATE OF EXAM: Oct 31 2022 2:04PM [facility] 0470 - CTA CORONARY W IVCON / PROCEDURE REASON: R07.2-Precordial pain * * * * Physician Interpretation * * * * Coronary CTA dated 10/31/2022 2:04 PM Comparison: None History: 21 years old Female with Marfan syndrome referred for index assessment of thoracic aorta, was protocolled as coronary CTA. Technique: Multi-detector CT technology was employed ([employer] Ascend scanner). Spiral imaging with retrospective gating [...] as dissection, intramural hematoma, or contained rupture. Automobile Brake Bonder dimensions of the thoracic aorta are as [...] anomaly. No evidence of coronary artery atherosclerosis. Software Validation Technician: PSCB Transcribe Date/Time: Oct 31 2022 3:03P Dictated by : CLARISA ADAMES MD This examination was interpreted and the report reviewed and electronically signed by: CLARISA ADAMES MD on Oct 31 2022 5:33PM EST [id number] [facility] NURSING PROGon 10-31-2022 NURSING PROG HNO ID: [id number] Author: Karma Buchanan RN Service: Radiology Author [...] Buchanan RN October 31, 2022 2:22 PM [facility] STREP A MOLECULAR (POC)on Procedural Control Valid [facility] Strep A (POCT) Negative Negative [facility] Influenza virus A and B RNA and SARS-CoV-2 (COVID-19) N gene panel EDMOND+probe (Resp)on 07-09-2022 FLUAV RNA EDMOND+probe Ql (Unsp spec) Negative Negative for Influenza A by RT-PCR [facility] FLUBV RNA EDMOND+probe Ql (Unsp spec) Negative Negative for Influenza B by RT-PCR [facility] SARS-CoV-2 (COVID-19) RNA EDMOND+probe Ql (Resp) SARS-CoV-2 (Agent of COVID-19) Not Detected by RT-PCR or equivalent method. Not Detected [facility] US IMAGING GUIDED BIOPSY JERILYN Jeremy 07-05-2022 [facility] US ABD RT UPPER QUADRANTon 1 [facility] Absolute lymphocyte counton 04-11-2022 Lymphocytes Auto (Unsp spec) [#/Vol] 5.53 10*3/uL 0.83-4.51 [facility] Work Phone: Basophil percentageon 2021 Basophils/100 WBC (Bld) 0.7 % 0-1 [facility] Work Phone: Bilirubin [Mass/Vol] 0.30 mg/dL 0.20-1.00 [facility] Work Phone: Comment on above: For patients on eltr ombopag therapy, use of Dimension Keo TBIL is not recommended. Chloride [Moles/Vol] 106 mmol/L 98-107 [facility] Work Phone: Eosinophils/100 WBC (Bld) 1.6 % 0-5 [facility] Work Phone: Glucose [Mass/Vol] 92 mg/dL 74-106 [facility] Work Phone: Neutrophils (Bld) [#/Vol] 8.3 10*3/uL 2.0-7.7 [facility] Work Phone: Neutrophils/100 WBC (Bld) 54.4 % 47-70 [facility] Work Phone: Potassium [Moles/Vol] 3.8 mmol/L 3.5-5.1 [facility] Work Phone: Protein [Mass/Vol] 8.1 g/dL 6.4-8.2 [facility] Work Phone: Sodium [Moles/Vol] 140 mmol/L 136-145 [facility] Work Phone: WBC (Bld) [#/Vol] 15.3 10*3/uL 4.4-11.0 [facility] Work Phone: Blood erythrocytes count (nu mber/volume)on 04-11-2022 RBC (Bld) [#/Vol] 4.38 10*6/uL 4.2-5.4 [facility] Work Phone: Blood hemoglobin measurement (mass/volume)on 04-11-2022 Hemoglobin (Bld) [Mass/Vol] 13.5 g/dL 12.0-15.0 [facility] Work Phone: Blood lymphocytes/100 leukoc yteson 04-11-2022 Lymphocytes/100 WBC (Bld) 36.2 % 19-41 [facility] Work Phone: Blood manual differential co mment interpretation (narrative result)on 04-11-2022 Manual differential comment Jeff (Bld) [Interp] SCANNED [facility] Work Phone: Blood monocytes/100 leukocyt eson 04-11-2022 Monocytes/100 WBC (Bld) 6.8 % 0-10 [facility] Work Phone: Blood platelet mean volumeon 04-11-2022 Platelet mean volume (Bld) [Entitic vol] 9.7 fL 6.2-12.0 [facility] Work Phone: [phone] Determination of erythrocyte mean corpuscular volume (MCV)on 04-11-2022 MCV (RBC) [Entitic vol] 90.2 fL 81-99 [facility] Work Phone: [phone] Direct bilirubinon Bilirubin.direct [Mass/Vol] 0.07 mg/dL 0.00-0.30 [facility] Work Phone: [phone] Hematocrit Auto (Bld) [Volum e fraction]on 04-11-2022 Hematocrit (Bld) [Volume fraction] 39.5 % 37-47 [facility] Work Phone: [phone] Laboratory - Chemistry and C hemistry - challengeon 04-11-2022 ALP [Catalytic activity/Vol] 78 U/L 45-117 [facility] Work Phone: ALT [Catalytic activity/Vol] 92 U/L 13-56 [facility] Work Phone: CO2 [Moles/Vol] 27.0 mmol/L 21.0-32.0 [facility] Work Phone: [phone] Globulin (S) [Mass/Vol] 4.7 g/dL 2.2-4.2 [facility] Work Phone: [phone] Lipase [Catalytic activity/Vol] 124 U/L 73-393 [facility] Work Phone: [phone] Urea nitrogen/Creatinine [Mass ratio] 10.3 mg/mg 10-20 [facility] Work Phone: [phone] Laboratory - Hematology and Cell countson 04-11-2022 Erythrocyte distribution width (RBC) [Entitic vol] 40.5 fL 35.1-43.9 [facility] Work Phone: Erythrocyte distribution width (RBC) [Ratio] 12.1 % 11.6-14.6 [facility] Work Phone: [phone] Immature granulocytes/100 WBC (Bld) 0.300 % 0.0-0.9 [facility] Work Phone: [phone] Comment on above: IG% - Immature Granu locytes (promyelocytes, myelocytes and metamyelocytes) > 1% indicates that a LEFT SHIFT is Present. MCH (RBC) [Entitic mass] 30.8 pg 27.0-32.0 [facility] Work Phone: Nucleated RBC/100 WBC (Bld) [Ratio] 0 % 0-5 [facility] Work Phone: MCHC Auto (RBC) [Mass/Vol]on 04-11-2022 MCHC (RBC) [Mass/Vol] 34.2 g/dL 32-36 [facility] Work Phone: No Panel Informationon 04-11 Estimated Creatinine Clearance Calc 135.25 ml/min [facility] Work Phone: Estimated GFR (MDRD) Amer 119 mL/min >60 [facility] Work Phone: Comment on above: GFR Calc Estimated GFR (MDRD) Non-Af Amer 98 mL/min >60 [facility] Work Phone: Comment on above: Non- GFR Calc Troponin I High Sensitivity 4 pg/mL 3.0-54.0 [facility] Work Phone: Comment on above: Please Note: New Susan t Units and Gender Specific Reference Ranges. For more information see Policy Stat Procedure Keo High Sensitivity Troponin (TNIH) and attachments. Platelets bldon 04-11-2022 Platelets (Bld) [#/Vol] 493 10*3/uL 150-450 [facility] Work Phone: Serum or plasma albumin lawrence urement (mass/volume)on 04-11-2022 Albumin [Mass/Vol] 3.4 g/dL 3.2-5.0 [facility] Work Phone: Serum or plasma calcium lawrence urement (mass/volume)on 04-11-2022 Calcium [Mass/Vol] 8.8 mg/dL 8.5-10.1 [facility] Work Phone: Serum or plasma creatinine m easurement (mass/volume)on 04-11-2022 Creatinine [Mass/Vol] 0.77 mg/dL 0.55-1.02 [facility] Work Phone: Comment on above: The validity of the calculated GFR & GFRAA in patients over 70 years has not been determined. Clinical correlation is essential. Serum or plasma urea nitroge n measurement (mass/volume)on 04-11-2022 Urea nitrogen [Mass/Vol] 8 mg/dL 7-18 [facility] Work Phone: Thin prep Papanicolaou smear with manual screeningon 04-11-2022 Thin prep Papanicolaou smear with manual screening 53 U/L 15- [facility] Work Phone: Thin prep Papanicolaou smear with manual screening 7 -15 [facility] Work Phone: UA DIP, URINE (POC)on 2021 BILIRUBIN UA (POCT) Negative Negative [facility] CLARITY UA (POCT) Clear [facility] COLOR UA (POCT) Yellow [facility] GLUCOSE UA (POCT) Negative Negative mg/dL [facility] HEMOGLOBIN/BLOOD UA (POCT) Negative Negative [facility] KETONE UA (POCT) Negative Negative mg/dL [facility] LEUKOCYTES UA (POCT) Negative Negative [facility] NITRITE UA (POCT) Negative Negative [facility] PH UA (POCT) 8.5 Abnormal 4.5 - 8.0 [facility] Protein Ql (U) 30 mg/dL Abnormal Negative mg/dL [facility] SPECIFIC GRAVITY UA (POCT) 1.020 1.005 - 1.030 [facility] UROBILINOGEN UA (POCT) 0.2 E.U./dL Normal E.U./dL [facility] No Panel Informationon 02-20 IMPRESSION: RIGHT ANKLE: Within normal limits. No bone or joint abnormalities seen. RIGHT FOOT: Within normal limits. No acute findings. Software Validation Technician: PSCB Transcribe Date/Time: Feb 20 2022 7:11P Dictated by : ISAIAS SMYTH MD This examination was interpreted and the report reviewed and electronically signed by: ISAIAS SMYTH MD on Feb 20 2022 7:15PM [facility] Radiology Study observation (narrative) [facility] No Panel InformationOrdered By: Cc Provider on 02-20-2022 [facility] XR Ankle - right AP and Late [...] comparison AP projection. DIVISION OF RADIOLOGY Provider, [facility] - 02/20/2022 * * *Final Report* * [...] FOOT: Within normal limits. No acute findings. Software Validation Technician: PSCB Transcribe Date/Time: Feb 20 2022 7:11P Dictated by : ISAIAS SMYTH MD This examination was interpreted and the report reviewed and electronically signed by: ISAIAS SMYTH MD on Feb 20 2022 7:15PM [facility] XR Foot - right AP and Later [...] comparison AP projection. DIVISION OF RADIOLOGY Provider, [facility] - 02/20/2022 * * *Final Report* * [...] FOOT: Within normal limits. No acute findings. Software Validation Technician: SILVIANO Transcribe Date/Time: Feb 20 2022 7:11P Dictated by : ISAIAS SMYTH MD This examination was interpreted and the report reviewed and electronically signed by: ISAIAS SMYTH MD on Feb 20 2022 7:15PM [facility] XR Toes - right 3 Viewson IMPRESSION: No acute process. Software Validation Technician: PSCB Transcribe Date/Time: Jul 12 2021 3:51P Dictated by : OTILIA DAMON MD This examination was interpreted and the report reviewed and electronically signed by: OTILIA DAMON MD on Jul 12 2021 3:54PM [facility] * * *Final Report* [...] soft tissue abnormality. DIVISION [facility]IOLOGY [facility] * * *Final Report* * [...] tissue abnormality. IMPRESSION IMPRESSION: No acute process. Software Validation Techn[facility] Trans[facility] Date/Time: Jul 12 2021 3:51P Dictated by : OTILIA DAMON MD This examination was interpreted and the report reviewed and electronically signed by: OTILIA DAMON MD on Jul 12 2021 3:54PM EST [facility] Radiology Study observation (narrative) [facility] XR Toes - right 3 ViewsOrder ed By: Ccf Provider on 07-12-2021 [facility] XR ANKLE LEFT 3 [facility] 021 XR ANKLE LEFT 3 [place] [address] Radiology PATIENT NAME: Katie Forde MR#: [id number] PROCEDURE DATE: 04/18/2021 ROOM#: ORDERING PHYS: Gerri [...] Suarez MD dd TD: 04/19/2021 JOB #: [id number] Radiology Page 1 of 1 COPY Normal [facility] XR FOOT LEFT 3VW OR MOREon 1 XR FOOT LEFT 3VW OR MORE [facility] [address] [place] [address] Radiology PATIENT NAME: Katie Forde MR#: [id number] PROCEDURE DATE: 04/18/2021 ROOM#: ORDERING PHYS: Gerri [...] Suarez MD dd TD: 04/19/2021 JOB #: [id number] Radiology Page 1 of 1 COPY Normal [facility] URINE CULTUREon 04-12-2021 Bacteria identified Cx Nom (U) COLONY COUNT: 10-100K cfu/ml Escherichia coli. [id number] coliSCTesccolEscherichia coli [ S = SUSCEPTIBLE R [...] <= 0.25 Imipenem S <= 0.25 Normal [facility] Comment on above: Performed By: #### L [id number], [id number] #### [place] [address] CBCon 04-10-2021 Basophil Abs. 0.2 10*3/uL High 0.0-0.1 [facility] Comment on above: Performed By: #### L [id number] #### [place] [address] Basophils/100 WBC (Bld) 1.2 % High 0.0-1.0 [facility] Comment on above: Performed By: #### L [id number] #### [place] [address] Differential type Auto Normal [facility] Comment on above: Performed By: #### L [id number] #### [place] [address] Eosinophils (Bld) [#/Vol] 0.2 10*3/uL Normal 0.0-0.5 [facility] Comment on above: Performed By: #### L [id number] #### [place] [address] Eosinophils/100 WBC (Bld) 1.1 % Normal 0.3-5.0 [facility] Comment on above: Performed By: #### L [id number] #### [facility] [address] [place], [place] Erythrocyte distribution width (RBC) [Ratio] 13.2 % High 11.5-13.1 [facility] Comment on above: Performed By: #### L [id number] #### [facility] [address] [place], [place] Hematocrit (Bld) [Volume fraction] 40.3 % Normal 33.0-51.0 [facility] Comment on above: Performed By: #### L [id number] #### [facility] [address] [place], [place] Hemoglobin (Bld) [Mass/Vol] 13.4 g/dL Normal 12.0-16.0 [facility] Comment on above: Performed By: #### L [id number] #### [facility] [address] [place], [place] Lymphocytes (Bld) [#/Vol] 3.9 10*3/uL Normal 1.1-5.0 [facility] Comment on above: Performed By: #### L [id number] #### [facility] [address] [place] [address] Lymphocytes/100 WBC (Bld) 27.8 % Normal 24.0-44.0 [facility] Comment on above: Performed By: #### L [id number] #### [facility] [address] [place], [place] MCH (RBC) [Entitic mass] 31.0 pg Normal 26.0-34.0 [facility] Comment on above: Performed By: #### L [id number] #### [facility] [address] [place], [place] MCHC (RBC) [Mass/Vol] 33.1 g/dL Normal 32.0-36.0 [facility] Comment on above: Performed By: #### L [id number] #### [facility] [address] [place] MCV (RBC) [Entitic vol] 93.6 fL Normal 80.0-100.0 [facility] Comment on above: Performed By: #### L [id number] #### [facility] [address] [place], [place] Monocytes (Bld) [#/Vol] 1.0 10*3/uL Normal 0.0-1.4 [facility] Comment on above: Performed By: #### L [id number] #### [facility] [address] [place], [place] Monocytes/100 WBC (Bld) 6.8 % Normal 2.1-13.3 [facility] Comment on above: Performed By: #### L [id number] #### [facility] [address] [place] Neutrophils, Abs. 8.9 10*3/uL High 1.5-8.5 [facility] Comment on above: Performed By: #### L [id number] #### [facility] [address] [place] Neutrophils/100 WBC (Bld) 63.1 % Normal 35.0-66.0 [facility] Comment on above: Performed By: #### L [id number] #### [facility] [address] [place] [address] Platelet Cnt 442 10*3/uL Normal 150-450 [facility] Comment on above: Performed By: #### L [id number] #### [facility] [address] [place], [place] Platelet mean volume (Bld) [Entitic vol] 8.0 fL Normal 6.5-10.0 [facility] Comment on above: Performed By: #### L [id number] #### [facility] [address] [place], [place] RBC (Bld) [#/Vol] 4.31 10*6/uL Normal 4.00-5.20 [facility] Comment on above: Performed By: #### L [id number] #### [facility] [address] [place] [address] WBC (Bld) [#/Vol] 14.1 10*3/uL High 4.5-11.0 [facility] Comment on above: Performed By: #### L [id number] #### [facility] [address] [place] [address] UA w/ Culture reflexon 04-10 UR BACTERIA None Seen Normal NONE SEEN [facility] Comment on above: Performed By: #### L [id number], [id number] #### [facility] [address] [place] [address] UR BILIRUBIN Negative Normal NEGATIVE [facility] Comment on above: Performed By: #### L [id number], [id number] #### [facility] [address] [place] [address] UR BLOOD 2 + mg/dL Abnormal NEGATIVE [facility] Comment on above: Performed By: #### L [id number], [id number] #### [facility] [address] [place] [address] UR CLARITY Clear Normal CLEAR [facility] Comment on above: Performed By: #### L [id number], [id number] #### [facility] [address] [place] [address] UR COLOR Light-Yellow Normal YELLOW [facility] Comment on above: Performed By: #### L [id number], [id number] #### [facility] [address] [place] [address] UR GLUCOSE Normal Normal NEGATIVE [facility] Comment on above: Performed By: #### L [id number], [id number] #### [facility] [address] [place] [address] UR KETONE Negative Normal NEGATIVE [facility] Comment on above: Performed By: #### L [id number], [id number] #### [facility] [address] [place] [address] UR LEUKOCYTE Negative Normal NEGATIVE [facility] Comment on above: Performed By: #### L [id number], [id number] #### [facility] [address] [place] [address] UR MUCOUS Rare Normal NONE SEEN [facility] Comment on above: Performed By: #### L [id number], [id number] #### [facility] [address] [place] [address] UR NITRITE Negative Normal NEGATIVE [facility] Comment on above: Performed By: #### L [id number], [id number] #### [facility] [address] [place] [address] UR NON-SQUAMOUS EPI < 1 Normal NONE SEEN [facility] Comment on above: Performed By: #### L [id number], [id number] #### [facility] [address] [place] [address] UR PH 8.0 Normal 5.0-9.0 [facility] Comment on above: Performed By: #### L [id number], [id number] #### [facility] [address] [place] [address] UR PROTEIN Negative Normal NEGATIVE [facility] Comment on above: Performed By: #### L [id number], [id number] #### [facility] [address] [place] [address] UR RBC 4 - 5 Normal 1-3 [facility] Comment on above: Performed By: #### L [id number], [id number] #### [facility] [address] [place] [address] UR SP GRAVITY 1.018 Normal 1.005-1.030 [facility] Comment on above: Performed By: #### L [id number], [id number] #### [facility] [address] [place] [address] UR SQUAMOUS EPI 1 - 3 Normal 3-5 [facility] Comment on above: Performed By: #### L [id number], [id number] #### [facility] [address] [place] [address] UR UROBILINOGEN Normal Normal <2.0 [facility] Comment on above: Performed By: #### L [id number], [id number] #### [place] [address] UR WBC 11 - 20 Abnormal 1-3 [facility] Comment on above: Performed By: #### L [id number], [id number] #### [facility] [address] [place] [address] SARS-CoV, QL, PCRon 04-04-20 21 SARS-CoV, QL, PCR Not detected Normal Undetected [facility] Comment on above: Order Comment: [place] chem Symptomatic?->No Indications (select all that apply)->Asymptomatic - essential worker Was specimen collected by a [facility] steam room attendant?->Yes Was this specimen self collected?->No Result Comment: Testing was performed using the Qu[employer] Albert[employer] Direct. Fact sheets for this Emergency Use Authorization (EUA) assay can be found at the following links: For Healthcare Providers: https://www.fda.gov/media/796480/download For Patients: https://www.fda.gov/media/168686/download Test Performed by: [facility],[address] [place] [address], Marketing Technologist: Priyanka Faustin D.O.; KENNY#: [id number] Performed By: #### L [id number] #### [facility] [address] [place] [address] ORon 10-14-2018 OPERATIVE REPORT Normal [facility] OR DATE OF SERVICE: 10/14/2018 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 PROCEDURES PERFORMED: Pars plana vitrectomy, pars plana lensectomy, endolaser, secondary IOL placement in the left eye. ATTENDING SURGEON: Naeem Sorto MD PHARMACY INTERN: [place] COMPLICATIONS: None. SPECIMENS: None. ESTIMATED [...] turned to the anterior segment where there [facility] PATIENT NAME: KATIE FORDE [address] [place] MEDICAL REC #: [id number] [place] [address] ADMIT DATE: DISCHARGE DATE: OPERATIVE REPORT ATTENDING [...] and shield were placed. Naeem Sorto MD [id number] SSI File#: [id number] Verified/Reviewed by 11/16/[address] [facility] PATIENT NAME: KATIE FORDE [address] [place] MEDICAL REC #: [id number] [place] [address] ADMIT DATE: DISCHARGE DATE: OPERATIVE REPORT ATTENDING PHY: Naeem Sorto MD Normal [facility] URINE PREGNANCYon 10-14-2018 HCG.beta subunit ( test) Ql (U) Negative Normal NEGATIVE [facility] Comment on above: Order Comment: Kenrick s: M Performed By: #### L [id number] #### [facility] [address] [place] [address] UR SPEC GRAV 1.015 Normal 1.005-1.030 [facility] Comment on above: Order Comment: Campu s: M Performed By: #### L [id number] #### [facility] [address] [place] [id number] URINE PREGNANCYon 08-19-2018 HCG.beta subunit ( test) Ql (U) Negative Normal NEGATIVE [facility] Comment on above: Order Comment: Campu s: M Performed By: #### L [id number] #### [facility] [place] [address] UR SPEC GRAV 1.022 Normal 1.005-1.030 [facility] Comment on above: Order Comment: Campu s: M Performed By: #### L [id number] #### [facility] [address] [place] [id number] Vital Signs Date Time Vital Sign Value Performing Clinician Facility 01-03-2025 13:33-0400 Body mass index (BMI) [Ratio] 39.32 kg/m2 Sher Hollingsworth APRN.CRIBBER Work Phone: [facility] 01-03-2025 13:33-0400 Body weight 131.5 kg Sher Hollingsworth APRN.CRIBBER Work Phone: [facility] 01-03-2025 13:33-0400 Diastolic blood pressure 80 mm[Hg] Sher Hollingsworth APRN.CRIBBER Work Phone: [facility] 01-03-2025 13:33-0400 Heart rate 79 /min Sher Hollingsworth APRN.CRIBBER Work Phone: [facility] 01-03-2025 13:33-0400 SaO2% (BldA) [Mass fraction] 99 % Sher Hollingsworth APRN.CRIBBER Work Phone: [facility] 01-03-2025 13:33-0400 Systolic blood pressure 120 mm[Hg] Sher Darrick WARP SCOURING VAT TENDER.CRIBBER Work Phone: [facility] 12-06-2024 14:03-0400 Body mass index (BMI) [Ratio] 39.59 kg/m2 Sher Darrick WARP SCOURING VAT TENDER.CRIBBER Work Phone: [facility] 12-06-2024 14:03-0400 Body weight 132.4 kg Sher Darrick WARP SCOURING VAT TENDER.CRIBBER Work Phone: [facility] 12-06-2024 14:03-0400 Diastolic blood pressure 64 mm[Hg] Sher Darrick WARP SCOURING VAT TENDER.CRIBBER Work Phone: [facility] 12-06-2024 14:03-0400 Heart rate 100 /min Sher Darrick WARP SCOURING VAT TENDER.CRIBBER Work Phone: [facility] 12-06-2024 14:03-0400 SaO2% (BldA) [Mass fraction] 98 % Sher Darrick WARP SCOURING VAT TENDER.CRIBBER Work Phone: [facility] 12-06-2024 14:03-0400 Systolic blood pressure 120 mm[Hg] Sher Darrick WARP SCOURING VAT TENDER.CRIBBER Work Phone: [facility] 12-02-2024 23:42-0400 Body temperature 97.8 [degF] Dr. Kate Silva MD Work Phone: [facility] 12-02-2024 23:42-0400 Diastolic blood pressure 79 mm[Hg] Dr. Kate Silva MD Work Phone: [facility] 12-02-2024 23:42-0400 Heart rate 95 /min Dr. Kate Silva MD Work Phone: [facility] 12-02-2024 23:42-0400 Respiratory rate 16 /min Dr. Kate Silva MD Work Phone: [facility] 12-02-2024 23:42-0400 SaO2% (BldA) [Mass fraction] 97 % Dr. Kate Silva MD Work Phone: [facility] 12-02-2024 23:42-0400 Systolic blood pressure 135 mm[Hg] Dr. Kate Silva MD Work Phone: [facility] 12-02-2024 20:47-0400 Body height 185.[address] Kate Silva MD Work Phone: [facility] 12-02-2024 20:47-0400 Body mass index (BMI) [Ratio] 38.7 kg/m2 Dr. Kate Silva MD Work Phone: [facility] 12-02-2024 20:47-0400 Body weight 133.[address] Kate Silva MD Work Phone: [facility] 11-08-2024 11:35-0400 Body mass index (BMI) [Ratio] 39.38 kg/m2 Sher Darrick WARP SCOURING VAT TENDER.CRIBBER Work Phone: [facility] 11-08-2024 11:35-0400 Body weight 131.7 kg Sher Darrick WARP SCOURING VAT TENDER.CRIBBER Work Phone: [facility] 11-08-2024 11:35-0400 Diastolic blood pressure 60 mm[Hg] Sher Darrick WARP SCOURING VAT TENDER.CRIBBER Work Phone: [facility] 11-08-2024 11:35-0400 Heart rate 101 /min Sher Darrick WARP SCOURING VAT TENDER.CRIBBER Work Phone: [facility] 11-08-2024 11:35-0400 SaO2% (BldA) [Mass fraction] 98 % Sher Darrick WARP SCOURING VAT TENDER.CRIBBER Work Phone: [facility] 11-08-2024 11:35-0400 Systolic blood pressure 102 mm[Hg] Sher Darrick WARP SCOURING VAT TENDER.CRIBBER Work Phone: [facility] 11-02-2024 09:06-0400 Body mass index (BMI) [Ratio] 39.23 kg/m2 Sher Darrick WARP SCOURING VAT TENDER.CRIBBER Work Phone: [facility] 11-02-2024 09:06-0400 Body weight 131.2 kg Sher Darrick WARP SCOURING VAT TENDER.CRIBBER Work Phone: [facility] 11-02-2024 09:06-0400 Diastolic blood pressure 70 mm[Hg] Sher Porterr WARP SCOURING VAT TENDER.CRIBBER Work Phone: [facility] 11-02-2024 09:06-0400 Heart rate 93 /min Sher Porterr WARP SCOURING VAT TENDER.CRIBBER Work Phone: [facility] 11-02-2024 09:06-0400 SaO2% (BldA) [Mass fraction] 98 % Sher Darrick WARP SCOURING VAT TENDER.CRIBBER Work Phone: [facility] 11-02-2024 09:06-0400 Systolic blood pressure 100 mm[Hg] Sher Porterr WARP SCOURING VAT TENDER.CRIBBER Work Phone: [facility] 10-29-2024 01:28-0400 Body temperature 97.9 [degF] Dr. Kate Silva MD Work Phone: [facility] 10-29-2024 01:28-0400 Diastolic blood pressure 75 mm[Hg] Dr. Kate Silva MD Work Phone: 2(974)099-585870 [place] [address] 10-29-2024 01:28-0400 Heart rate 87 /min Dr. Kate Silva MD Work Phone: [facility] 10-29-2024 01:28-0400 Respiratory rate 18 /min Dr. Kate Silva MD Work Phone: [facility] 10-29-2024 01:28-0400 SaO2% (BldA) [Mass fraction] 96 % Dr. Kate Silva MD Work Phone: [facility] 10-29-2024 01:28-0400 Systolic blood pressure 126 mm[Hg] Dr. Kate Silva MD Work Phone: [facility] 10-28-2024 22:31-0400 Body mass index (BMI) [Ratio] 38.6 kg/m2 Dr. Kate Silva MD Work Phone: 7(122)196-840570 [place] [address] 10-28-2024 22:31-0400 Body weight 132.[address] Kate Silva MD Work Phone: [facility] 10-26-2024 14:01-0400 Body mass index (BMI) [Ratio] 39.8 kg/m2 Sher Darrick WARP SCOURING VAT TENDER.CRIBBER Work Phone: [facility] 10-26-2024 14:01-0400 Body weight 133.1 kg Sher Darrick WARP SCOURING VAT TENDER.CRIBBER Work Phone: [facility] 10-26-2024 14:01-0400 Diastolic blood pressure 70 mm[Hg] Sher Darrick WARP SCOURING VAT TENDER.CRIBBER Work Phone: [facility] 10-26-2024 14:01-0400 Heart rate 96 /min Sher Darrick WARP SCOURING VAT TENDER.CRIBBER Work Phone: [facility] 10-26-2024 14:01-0400 Respiratory rate 16 /min Sher Darrick WARP SCOURING VAT TENDER.CRIBBER Work Phone: [facility] 10-26-2024 14:01-0400 Systolic blood pressure 116 mm[Hg] Sher Darrick WARP SCOURING VAT TENDER.CRIBBER Work Phone: [facility] 10-25-2024 01:56-0400 Body temperature 97.8 [degF] Dr. Kate Silva MD Work Phone: [facility] 10-25-2024 01:56-0400 Diastolic blood pressure 76 mm[Hg] Dr. Kate Silva MD Work Phone: [facility] 10-25-2024 01:56-0400 Heart rate 98 /min Dr. Kate Silva MD Work Phone: [facility] 10-25-2024 01:56-0400 Respiratory rate 18 /min Dr. Kate Silva MD Work Phone: [facility] 10-25-2024 01:56-0400 SaO2% (BldA) [Mass fraction] 99 % Dr. Kate Silva MD Work Phone: [facility] 10-25-2024 01:56-0400 Systolic blood pressure 123 mm[Hg] Dr. Kate Silva MD Work Phone: [facility] 10-25-2024 00:37-0400 Body height 185.[address] Kate Silva MD Work Phone: [facility] 10-25-2024 00:37-0400 Body mass index (BMI) [Ratio] 38.9 kg/m2 Dr. Kate Silva MD Work Phone: [facility] 10-25-2024 00:37-0400 Body weight [address] Kate Silva MD Work Phone: [facility] 10-20-2024 10:14-0400 Body height 182.9 cm Kate Silva MD Work Phone: [facility] 10-20-2024 10:14-0400 Body mass index (BMI) [Ratio] 40.01 kg/m2 Kate Silva MD Work Phone: [facility] 10-20-2024 10:14-0400 Body temperature 99 [degF] Kate Silva MD Work Phone: [facility] 10-20-2024 10:14-0400 Body weight 133.8 kg Kate Silva MD Work Phone: [facility] 10-20-2024 10:14-0400 Diastolic blood pressure 70 mm[Hg] Kate Silva MD Work Phone: [facility] 10-20-2024 10:14-0400 Heart rate 95 /min Kate Silva MD Work Phone: [facility] 10-20-2024 10:14-0400 Respiratory rate 14 /min Kate Silva MD Work Phone: [facility] 10-20-2024 10:14-0400 SaO2% (BldA) [Mass fraction] 98 % Kate Silva MD Work Phone: [facility] 10-20-2024 10:14-0400 Systolic blood pressure 118 mm[Hg] Kate Silva MD Work Phone: [facility] 10-11-2024 15:48-0400 Body mass index (BMI) [Ratio] 40.28 kg/m2 Gopal Yanez MD Work Phone: [facility] 10-11-2024 15:48-0400 Body temperature 98.29 [degF] Gopal Yanez MD Work Phone: [facility] 10-11-2024 15:48-0400 Body weight 134.72 kg Gopal Yanez MD Work Phone: [facility] 10-11-2024 15:48-0400 Diastolic blood pressure 77 mm[Hg] Gopal Yanez MD Work Phone: [facility] 10-11-2024 15:48-0400 Heart rate 102 /min Gopal Yanez MD Work Phone: [facility] 10-11-2024 15:48-0400 SaO2% (BldA) [Mass fraction] 98 % Gopal Yanez MD Work Phone: [facility] 10-11-2024 15:48-0400 Systolic blood pressure 114 mm[Hg] Gopal Yanez MD Work Phone: [facility] 10-11-2024 09:43-0400 Body mass index (BMI) [Ratio] 39.93 kg/m2 Pat [place] WARP SCOURING VAT TENDER.CRIBBER Work Phone: [facility] 10-11-2024 09:43-0400 Body weight 133.54 kg Pat Agata WARP SCOURING VAT TENDER.CRIBBER Work Phone: [facility] 10-11-2024 09:43-0400 Diastolic blood pressure 66 mm[Hg] Pat [place] WARP SCOURING VAT TENDER.CRIBBER Work Phone: [facility] 10-11-2024 09:43-0400 Systolic blood pressure 100 mm[Hg] Pat Agata WARP SCOURING VAT TENDER.CRIBBER Work Phone: [facility] 10-06-2024 22:24-0400 Body temperature 97.8 [degF] Dr. Kate Silva MD Work Phone: [facility] 10-06-2024 22:24-0400 Diastolic blood pressure 72 mm[Hg] Dr. Kate Silva MD Work Phone: [facility] 10-06-2024 22:24-0400 Heart rate 95 /min Dr. Kate Silva MD Work Phone: 3(202)825-865170 [place] [address] 10-06-2024 22:24-0400 Respiratory rate 16 /min Dr. Kate Silva MD Work Phone: 1(243)030-447996 [place] [address] 10-06-2024 22:24-0400 SaO2% (BldA) [Mass fraction] 96 % Dr. Kate Silva MD Work Phone: 8(187)235-008396 [place] [address] 10-06-2024 22:24-0400 Systolic blood pressure 134 mm[Hg] Dr. Kate Silva MD Work Phone: 0(094)191-396896 [place] [address] 10-06-2024 19:45-0400 Body height 185.[address] Kate Silva MD Work Phone: 7(628)211-378370 [place] [address] 10-06-2024 19:45-0400 Body mass index (BMI) [Ratio] 38.9 kg/m2 Dr. Kate Silva MD Work Phone: 5(677)055-520770 [place] [address] 10-06-2024 19:45-0400 Body weight [address] Kate Silva MD Work Phone: [facility] 10-01-2024 10:13-0400 Body mass index (BMI) [Ratio] 39.83 kg/m2 Kate Silva MD Work Phone: [facility] 10-01-2024 10:13-0400 Body weight 133.2 kg Kate Silva MD Work Phone: [facility] 10-01-2024 10:13-0400 Diastolic blood pressure 64 mm[Hg] Kate Silva MD Work Phone: [facility] 10-01-2024 10:13-0400 Heart rate 64 /min Kate Silva MD Work Phone: [facility] 10-01-2024 10:13-0400 Respiratory rate 14 /min Kate Silva MD Work Phone: [facility] 10-01-2024 10:13-0400 Systolic blood pressure 110 mm[Hg] Kate Silva MD Work Phone: [facility] 09-29-2024 21:52-0400 Body temperature 98.7 [degF] Dr. Kate Silva MD Work Phone: [facility] 09-29-2024 21:52-0400 Diastolic blood pressure 66 mm[Hg] Dr. Kate Silva MD Work Phone: [facility] 09-29-2024 21:52-0400 Heart rate 92 /min Dr. Kate Silva MD Work Phone: 4(736)641-766470 [place] [address] 09-29-2024 21:52-0400 Respiratory rate 14 /min Dr. Kate Silva MD Work Phone: 3(623)773-216670 [place] [address] 09-29-2024 21:52-0400 SaO2% (BldA) [Mass fraction] 100 % Dr. Kate Silva MD Work Phone: [facility] 09-29-2024 21:52-0400 Systolic blood pressure 118 mm[Hg] Dr. Kate Silva MD Work Phone: [facility] 09-29-2024 20:09-0400 Body height 185.[address] Kate Silva MD Work Phone: 5(601)957-247470 [place] [address] 09-29-2024 20:09-0400 Body mass index (BMI) [Ratio] 39.3 kg/m2 Dr. Kate Silva MD Work Phone: 8(653)923-660470 [place] [address] 09-29-2024 20:09-0400 Body weight 135.[address] Kate Silva MD Work Phone: 3(713)530-225870 [place] [address] 08-30-2024 13:17-0500 Body height 182.9 cm Satni Mcallister MD Work Phone: [facility] 08-30-2024 13:17-0500 Body mass index (BMI) [Ratio] 40.55 kg/m2 Santi Mcallister MD Work Phone: [facility] 08-30-2024 13:17-0500 Body weight 135.63 kg Santi Mcallister MD Work Phone: [facility] 08-30-2024 13:17-0500 Diastolic blood pressure 74 mm[Hg] Santi Mcallister MD Work Phone: [facility] 08-30-2024 13:17-0500 Heart rate 93 /min Santi Mcallister MD Work Phone: [facility] 08-30-2024 13:17-0500 Respiratory rate 14 /min Santi Mcallister MD Work Phone: [facility] 08-30-2024 13:17-0500 SaO2% (BldA) [Mass fraction] 96 % Santi Mcallister MD Work Phone: [facility] 08-30-2024 13:17-0500 Systolic blood pressure 118 mm[Hg] Santi Mcallister MD Work Phone: [facility] 08-24-2024 10:21-0500 Body mass index (BMI) [Ratio] 40.87 kg/m2 Radha Clutter PA-C Work Phone: [facility] 08-24-2024 10:21-0500 Body temperature 98.01 [degF] Radha Clutter PA-C Work Phone: [facility] 08-24-2024 10:21-0500 Body weight 136.7 kg Radha Clutter PA-C Work Phone: [facility] 08-24-2024 10:21-0500 Diastolic blood pressure 78 mm[Hg] Radha Clutter PA-C Work Phone: [facility] 08-24-2024 10:21-0500 Heart rate 104 /min Radha Clutter PA-C Work Phone: [facility] 08-24-2024 10:21-0500 Respiratory rate 16 /min Radha Clutter PA-C Work Phone: [facility] 08-24-2024 10:21-0500 SaO2% (BldA) [Mass fraction] 97 % Radha Clutter PA-C Work Phone: [facility] 08-24-2024 10:21-0500 Systolic blood pressure 118 mm[Hg] Radha Clutter PA-C Work Phone: [facility] 08-09-2024 10:30-0500 Body mass index (BMI) [Ratio] 40.66 kg/m2 Kate Silva MD Work Phone: [facility] 08-09-2024 10:30-0500 Body weight 136 kg Kate Silva MD Work Phone: [facility] 08-09-2024 10:30-0500 Diastolic blood pressure 61 mm[Hg] Kate Silva MD Work Phone: [facility] 08-09-2024 10:30-0500 Heart rate 86 /min Kate Silva MD Work Phone: [facility] 08-09-2024 10:30-0500 Respiratory rate 16 /min Kate Silva MD Work Phone: [facility] 08-09-2024 10:30-0500 Systolic blood pressure 103 mm[Hg] Kate Silva MD Work Phone: [facility] 05-19-2024 09:54-0500 Body mass index (BMI) [Ratio] 41.14 kg/m2 Arthur Athy PA-C Work Phone: [facility] 05-19-2024 09:54-0500 Body temperature 97.59 [degF] Arthur Athy PA-C Work Phone: [facility] 05-19-2024 09:54-0500 Body weight 137.6 kg Arthur Athy PA-C Work Phone: [facility] 05-19-2024 09:54-0500 Diastolic blood pressure 82 mm[Hg] Arthur Athy PA-C Work Phone: [facility] 05-19-2024 09:54-0500 Heart rate 97 /min Arthur Athy PA-C Work Phone: [facility] 05-19-2024 09:54-0500 Respiratory rate 18 /min Arthur Athy PA-C Work Phone: [facility] 05-19-2024 09:54-0500 SaO2% (BldA) [Mass fraction] 98 % Arthur Athy PA-C Work Phone: [facility] 05-19-2024 09:54-0500 Systolic blood pressure 120 mm[Hg] Arthur Athy PA-C Work Phone: [facility] 05-12-2024 15:59-0500 Body mass index (BMI) [Ratio] 40.85 kg/m2 Rebeca Beasley WARP SCOURING VAT TENDER.CNM Work Phone: [facility] 05-12-2024 15:59-0500 Body weight 136.62 kg Rebeca Beasley WARP SCOURING VAT TENDER.CNM Work Phone: [facility] 05-12-2024 15:59-0500 Diastolic blood pressure 80 mm[Hg] Rebeca Beasley WARP SCOURING VAT TENDER.CNM Work Phone: [facility] 05-12-2024 15:59-0500 Systolic blood pressure 120 mm[Hg] Rebeca Beasley WARP SCOURING VAT TENDER.CNM Work Phone: [facility] 04-30-2024 12:55-0400 Body mass index (BMI) [Ratio] 40.69 kg/m2 Sher Darrick WARP SCOURING VAT TENDER.CRIBBER Work Phone: [facility] 04-30-2024 12:55-0400 Body weight 136.1 kg Sher Darrick WARP SCOURING VAT TENDER.CRIBBER Work Phone: [facility] 04-30-2024 12:55-0400 Diastolic blood pressure 82 mm[Hg] Sher Darrick WARP SCOURING VAT TENDER.CRIBBER Work Phone: [facility] 04-30-2024 12:55-0400 Heart rate 95 /min Sher Darrick WARP SCOURING VAT TENDER.CRIBBER Work Phone: [facility] 04-30-2024 12:55-0400 SaO2% (BldA) [Mass fraction] 99 % Sher Darrick WARP SCOURING VAT TENDER.CRIBBER Work Phone: [facility] 04-30-2024 12:55-0400 Systolic blood pressure 110 mm[Hg] Sher Darrick WARP SCOURING VAT TENDER.CRIBBER Work Phone: [facility] 03-19-2024 10:10-0400 Diastolic blood pressure 88 mm[Hg] Sher Darrick WARP SCOURING VAT TENDER.CRIBBER Work Phone: [facility] 03-19-2024 10:10-0400 Systolic blood pressure 118 mm[Hg] Sher Darrick WARP SCOURING VAT TENDER.CRIBBER Work Phone: [facility] 03-19-2024 10:06-0400 Body mass index (BMI) [Ratio] 41.62 kg/m2 Sher Darrick WARP SCOURING VAT TENDER.CRIBBER Work Phone: [facility] 03-19-2024 10:06-0400 Body weight 139.2 kg Sher Darrick WARP SCOURING VAT TENDER.CRIBBER Work Phone: [facility] 03-19-2024 10:06-0400 Heart rate 103 /min Sher Darrick WARP SCOURING VAT TENDER.CRIBBER Work Phone: [facility] 03-19-2024 10:06-0400 SaO2% (BldA) [Mass fraction] 97 % Sher Darrick WARP SCOURING VAT TENDER.CRIBBER Work Phone: [facility] 03-04-2024 12:42-0400 Body mass index (BMI) [Ratio] 42.45 kg/m2 Pat Agata WARP SCOURING VAT TENDER.CRIBBER Work Phone: [facility] 03-04-2024 12:42-0400 Body weight 141.98 kg Pat Agata WARP SCOURING VAT TENDER.CRIBBER Work Phone: [facility] 03-04-2024 12:42-0400 Diastolic blood pressure 76 mm[Hg] Pat Agata WARP SCOURING VAT TENDER.CRIBBER Work Phone: [facility] 03-04-2024 12:42-0400 Systolic blood pressure 124 mm[Hg] Pat Agata WARP SCOURING VAT TENDER.CRIBBER Work Phone: [facility] 03-02-2024 12:27-0400 Body mass index (BMI) [Ratio] 42.43 kg/m2 Rebeca Foley WARP SCOURING VAT TENDER.CRIBBER Work Phone: [facility] 03-02-2024 12:27-0400 Body temperature 98.29 [degF] Rebeca Foley WARP SCOURING VAT TENDER.CRIBBER Work Phone: [facility] 03-02-2024 12:27-0400 Body weight 141.9 kg Rebeca Foley WARP SCOURING VAT TENDER.CRIBBER Work Phone: [facility] 03-02-2024 12:27-0400 Diastolic blood pressure 80 mm[Hg] Rebeca Foley WARP SCOURING VAT TENDER.CRIBBER Work Phone: [facility] 03-02-2024 12:27-0400 Heart rate 106 /min Rebeca Foley WARP SCOURING VAT TENDER.CRIBBER Work Phone: [facility] 03-02-2024 12:27-0400 Respiratory rate 16 /min Rebeca Foley WARP SCOURING VAT TENDER.CRIBBER Work Phone: [facility] 03-02-2024 12:27-0400 SaO2% (BldA) [Mass fraction] 98 % Rebeca Foley WARP SCOURING VAT TENDER.CRIBBER Work Phone: [facility] 03-02-2024 12:27-0400 Systolic blood pressure 124 mm[Hg] Rebeca Ofley WARP SCOURING VAT TENDER.CRIBBER Work Phone: [facility] 02-10-2024 14:53-0400 Body mass index (BMI) [Ratio] 42.86 kg/m2 Pat Agata WARP SCOURING VAT TENDER.CRIBBER Work Phone: [facility] 02-10-2024 14:53-0400 Body weight 143.34 kg Pat Agata WARP SCOURING VAT TENDER.CRIBBER Work Phone: [facility] 02-10-2024 14:53-0400 Diastolic blood pressure 80 mm[Hg] Pat [place] WARP SCOURING VAT TENDER.CRIBBER Work Phone: [facility] 02-10-2024 14:53-0400 Systolic blood pressure 120 mm[Hg] Pat [place] WARP SCOURING VAT TENDER.CRIBBER Work Phone: [facility] [facility] 01-27-2024 14:04-0400 Body mass index (BMI) [Ratio] 42.99 kg/m2 Sher Darrick W[employer] SCOURING VAT TENDER.CRIBBER Work Phone: [facility] 01-27-2024 14:04-0400 Body weight 143.79 kg Sher Darrick W[employer] SCOURING VAT TENDER.CRIBBER Work Phone: [facility] 01-27-2024 14:04-0400 Diastolic blood pressure 80 mm[Hg] Sher Darrick WARP SCOURING VAT TENDER.CRIBBER Work Phone: [facility] 01-27-2024 14:04-0400 Heart rate 100 /min Sher Darrick W[employer] SC[employer]ING VAT TENDER.CRIBBER Work Phone: [facility] 01-27-2024 14:04-0400 Respiratory rate 20 /min Sher Darrick WARP SCOURING VAT TENDER.CRIBBER Work Phone: [facility] 01-27-2024 14:04-0400 Systolic blood pressure 128 mm[Hg] Sher Darrick WARP SCOURING VAT TENDER.CRIBBER Work Phone: [facility] 12-22-2023 16:32-0400 Body mass index (BMI) [Ratio] 43.47 kg/m2 Kera Alcala-Joseph W[employer] SCOURING VAT TENDER.CRIBBER Work Phone: [facility] 12-22-2023 16:32-0400 Body temperature 97.39 [degF] Kera Praadaliler-Wood WARP SCOURING VAT TENDER.CRIBBER Work Phone: [facility] 12-22-2023 16:32-0400 Body weight 145.4 kg Kera Praadaliler-Wood WARP SCOURING VAT TENDER.CRIBBER Work Phone: [facility] 12-22-2023 16:32-0400 Diastolic blood pressure 72 mm[Hg] Kera Praisler-Wood WARP SCOURING VAT TENDER.CRIBBER Work Phone: [facility] 12-22-2023 16:32-0400 Heart rate 116 /min Kera Praisler-Wood WARP SCOURING VAT TENDER.CRIBBER Work Phone: [facility] 12-22-2023 16:32-0400 Respiratory rate 20 /min Kera Praisler-Wood WARP SCOURING VAT TENDER.CRIBBER Work Phone: [facility] 12-22-2023 16:32-0400 SaO2% (BldA) [Mass fraction] 97 % Kera Praisler-Wood WARP SCOURING VAT TENDER.CRIBBER Work Phone: [facility] 12-22-2023 16:32-0400 Systolic blood pressure 124 mm[Hg] Kera Praisler-Wood WARP SCOURING VAT TENDER.CRIBBER Work Phone: [facility] 12-17-2023 09:22-0400 Body mass index (BMI) [Ratio] 43.18 kg/m2 Terrence Moomaw W[employer] SC[employer]ING VAT TENDER.CRIBBER Work Phone: [facility] 12-17-2023 09:22-0400 Body temperature 97.9 [degF] Terrence Moomaw WARP SCOURING VAT TENDER.CRIBBER Work Phone: [facility] 12-17-2023 09:22-0400 Body weight 144.43 kg Terrence Moomaw WARP SCOURING VAT TENDER.CRIBBER Work Phone: [facility] 12-17-2023 09:22-0400 Diastolic blood pressure 78 mm[Hg] Terrence Moomaw WARP SCOURING VAT TENDER.CRIBBER Work Phone: [facility] 12-17-2023 09:22-0400 Heart rate 107 /min Terrence Moomaw WARP SCOURING VAT TENDER.CRIBBER Work Phone: [facility] 12-17-2023 09:22-0400 Respiratory rate 18 /min Terrence Moomaw WARP SCOURING VAT TENDER.CRIBBER Work Phone: [facility] 12-17-2023 09:22-0400 SaO2% (BldA) [Mass fraction] 98 % Terrence Moomaw WARP SCOURING VAT TENDER.CRIBBER Work Phone: [facility] 12-17-2023 09:22-0400 Systolic blood pressure 122 mm[Hg] Terrence Moomaw WARP SCOURING VAT TENDER.CRIBBER Work Phone: [facility] 12-15-2023 12:58-0400 Body mass index (BMI) [Ratio] 42.72 kg/m2 Sher Darrick WARP SCOURING VAT TENDER.CRIBBER Work Phone: [facility] 12-15-2023 12:58-0400 Body weight 142.88 kg Sher Darrick WARP SCOURING VAT TENDER.CRIBBER Work Phone: [facility] 12-15-2023 12:58-0400 Diastolic blood pressure 76 mm[Hg] Sher Darrick WARP SCOURING VAT TENDER.CRIBBER Work Phone: [facility] 12-15-2023 12:58-0400 Heart rate 102 /min Sher Darrick WARP SCOURING VAT TENDER.CRIBBER Work Phone: [facility] 12-15-2023 12:58-0400 Respiratory rate 16 /min Sher Darrick WARP SCOURING VAT TENDER.CRIBBER Work Phone: [facility] 12-15-2023 12:58-0400 SaO2% (BldA) [Mass fraction] 97 % Sher Darrick WARP SCOURING VAT TENDER.CRIBBER Work Phone: [facility] 12-15-2023 12:58-0400 Systolic blood pressure 128 mm[Hg] Sher Darrick WARP SCOURING VAT TENDER.CRIBBER Work Phone: [facility] 12-12-2023 12:46-0400 Body height 182.9 cm Pat Agata WARP SCOURING VAT TENDER.CRIBBER Work Phone: [facility] 12-12-2023 12:46-0400 Body mass index (BMI) [Ratio] 42.56 kg/m2 Pat Agata WARP SCOURING VAT TENDER.CRIBBER Work Phone: [facility] 12-12-2023 12:46-0400 Body weight 142.34 kg Pat Agata WARP SCOURING VAT TENDER.CRIBBER Work Phone: [facility] 12-12-2023 12:46-0400 Diastolic blood pressure 80 mm[Hg] Pat [place] WARP SCOURING VAT TENDER.CRIBBER Work Phone: [facility] 12-12-2023 12:46-0400 Heart rate 104 /min Pat Agata WARP SCOURING VAT TENDER.CRIBBER Work Phone: [facility] 12-12-2023 12:46-0400 Respiratory rate 14 /min Pat Agata WARP SCOURING VAT TENDER.CRIBBER Work Phone: [facility] 12-12-2023 12:46-0400 SaO2% (BldA) [Mass fraction] 96 % Pat [place] WARP SCOURING VAT TENDER.CRIBBER Work Phone: [facility] 12-12-2023 12:46-0400 Systolic blood pressure 122 mm[Hg] Pat Agata WARP SCOURING VAT TENDER.CRIBBER Work Phone: [facility] 12-02-2023 12:07-0400 Body mass index (BMI) [Ratio] 42.76 kg/m2 Marielena West APRN.CRIBBER Work Phone: [facility] 12-02-2023 12:07-0400 Body temperature 98.4 [degF] Marielena West APRN.CRIBBER Work Phone: [facility] 12-02-2023 12:07-0400 Body weight 143.2 kg Marielena West APRN.CRIBBER Work Phone: [facility] 12-02-2023 12:07-0400 Diastolic blood pressure 78 mm[Hg] Marielena West APRN.CRIBBER Work Phone: [facility] 12-02-2023 12:07-0400 Heart rate 70 /min Marielena West APRN.CRIBBER Work Phone: [facility] 12-02-2023 12:07-0400 Respiratory rate 18 /min Marielena West APRN.CRIBBER Work Phone: [facility] 12-02-2023 12:07-0400 SaO2% (BldA) [Mass fraction] 100 % Marielena West APRN.CRIBBER Work Phone: [facility] 12-02-2023 12:07-0400 Systolic blood pressure 118 mm[Hg] Marielena West APRN.CRIBBER Work Phone: [facility] 10-22-2023 12:58-0400 Body height 182.9 cm Estrellita Kalka PA-C Work Phone: [facility] 10-22-2023 12:58-0400 Body mass index (BMI) [Ratio] 42.68 kg/m2 Estrellita Kalka PA-C Work Phone: [facility] 10-22-2023 12:58-0400 Body weight 142.84 kg Estrellita Kalka PA-C Work Phone: [facility] 10-22-2023 12:58-0400 Diastolic blood pressure 84 mm[Hg] Estrellita Kalka PA-C Work Phone: [facility] 10-22-2023 12:58-0400 Heart rate 108 /min Estrellita Kalka PA-C Work Phone: [facility] 10-22-2023 12:58-0400 Systolic blood pressure 132 mm[Hg] Estrellita Kalka PA-C Work Phone: [facility] 10-09-2023 11:39-0400 Body temperature 98.2 [degF] Krislyn Aberegg PA Work Phone: [facility] 10-09-2023 11:39-0400 Body weight 143 kg Krislyn Aberegg PA Work Phone: [facility] 10-09-2023 11:39-0400 Diastolic blood pressure 83 mm[Hg] Krislyn Aberegg PA Work Phone: [facility] 10-09-2023 11:39-0400 Heart rate 105 /min Krislyn Aberegg PA Work Phone: [facility] 10-09-2023 11:39-0400 Respiratory rate 22 /min Krislyn Aberegg PA Work Phone: [facility] 10-09-2023 11:39-0400 SaO2% (BldA) [Mass fraction] 97 % Aria Russell PA Work Phone: [facility] 10-09-2023 11:39-0400 Systolic blood pressure 133 mm[Hg] Aria Lugg PA Work Phone: [facility] 09-16-2023 11:23-0400 Body height 183.5 cm Kate Silva MD Work Phone: [facility] 09-16-2023 11:23-0400 Body weight 141.52 kg Kate Silva MD Work Phone: [facility] 09-16-2023 11:23-0400 Diastolic blood pressure 66 mm[Hg] Kate Silva MD Work Phone: [facility] 09-16-2023 11:23-0400 Heart rate 91 /min Kate Silva MD Work Phone: [facility] 09-16-2023 11:23-0400 SaO2% (BldA) [Mass fraction] 98 % Kate Silva MD Work Phone: [facility] 09-16-2023 11:23-0400 Systolic blood pressure 102 mm[Hg] Kate Silva MD Work Phone: [facility] 09-11-2023 10:03-0400 Body weight 141.07 kg Pat [place] W[employer] SCOURING VAT TENDER.CRIBBER Work Phone: [facility] 09-11-2023 10:03-0400 Diastolic blood pressure 86 mm[Hg] Pat [place] WARP SCOURING VAT TENDER.CRIBBER Work Phone: [facility] 09-11-2023 10:03-0400 Systolic blood pressure 124 mm[Hg] Pat [place] WARP SCOURING VAT TENDER.CRIBBER Work Phone: [facility] 08-18-2023 12:23-0500 Body temperature 98.6 [degF] Los Barber WARP SCOURING VAT TENDER.CRIBBER Work Phone: [facility] 08-18-2023 12:23-0500 Body weight 140.8 kg Los Barber WARP SCOURING VAT TENDER.CRIBBER Work Phone: [facility] 08-18-2023 12:23-0500 Diastolic blood pressure 80 mm[Hg] Los Barebr WARP SCOURING VAT TENDER.CRIBBER Work Phone: [facility] 08-18-2023 12:23-0500 Heart rate 115 /min Los Barber WARP SCOURING VAT TENDER.CRIBBER Work Phone: [facility] 08-18-2023 12:23-0500 Respiratory rate 21 /min Los Barber WARP SCOURING VAT TENDER.CRIBBER Work Phone: [facility] 08-18-2023 12:23-0500 SaO2% (BldA) [Mass fraction] 98 % Los Barber WARP SCOURING VAT TENDER.CRIBBER Work Phone: [facility] 08-18-2023 12:23-0500 Systolic blood pressure 110 mm[Hg] Los Barber WARP SCOURING VAT TENDER.CRIBBER Work Phone: [facility] 08-11-2023 12:08-0500 Body temperature 97.81 [degF] Los Barber WARP SCOURING VAT TENDER.CRIBBER Work Phone: [facility] 08-11-2023 12:08-0500 Body weight 140.71 kg Los Barber WARP SCOURING VAT TENDER.CRIBBER Work Phone: [facility] 08-11-2023 12:08-0500 Diastolic blood pressure 80 mm[Hg] Los Barber WARP SCOURING VAT TENDER.CRIBBER Work Phone: [facility] 08-11-2023 12:08-0500 Heart rate 88 /min Los Barber WARP SCOURING VAT TENDER.CRIBBER Work Phone: [facility] 08-11-2023 12:08-0500 Respiratory rate 21 /min Los Barber WARP SCOURING VAT TENDER.CRIBBER Work Phone: [facility] 08-11-2023 12:08-0500 SaO2% (BldA) [Mass fraction] 97 % Los Barber WARP SCOURING VAT TENDER.CRIBBER Work Phone: [facility] 08-11-2023 12:08-0500 Systolic blood pressure 110 mm[Hg] Los Barber APRN.CRIBBER Work Phone: [facility] 08-11-2023 10:48-0500 Body weight 140.89 kg Nicolle Hopson MD Work Phone: [facility] 06-06-2023 15:44-0500 Body height 183.5 cm Kate Silva MD Work Phone: [facility] 06-06-2023 15:44-0500 Body temperature 97.5 [degF] Kate Silva MD Work Phone: [facility] 06-06-2023 15:44-0500 Body weight 138.35 kg Kate Silva MD Work Phone: [facility] 06-06-2023 15:44-0500 Diastolic blood pressure 72 mm[Hg] Kate Silva MD Work Phone: [facility] 06-06-2023 15:44-0500 Heart rate 108 /min Kate Silva MD Work Phone: [facility] 06-06-2023 15:44-0500 Respiratory rate 18 /min Kate Silva MD Work Phone: [facility] 06-06-2023 15:44-0500 SaO2% (BldA) [Mass fraction] 99 % Kate Silva MD Work Phone: [facility] 06-06-2023 15:44-0500 Systolic blood pressure 112 mm[Hg] Kate Silva MD Work Phone: [facility] 05-14-2023 11:22-0500 Body temperature 98.2 [degF] Marielena West APRN.CRIBBER Work Phone: [facility] 05-14-2023 11:22-0500 Body weight 138.53 kg Marielena West APRN.CRIBBER Work Phone: [facility] 05-14-2023 11:22-0500 Diastolic blood pressure 68 mm[Hg] Marielena West APRN.CRIBBER Work Phone: [facility] 05-14-2023 11:22-0500 Heart rate 103 /min Marielena West APRN.CRIBBER Work Phone: [facility] 05-14-2023 11:22-0500 Respiratory rate 16 /min Marielena West APRN.CRIBBER Work Phone: [facility] 05-14-2023 11:22-0500 SaO2% (BldA) [Mass fraction] 98 % Marielena West APRN.CRIBBER Work Phone: [facility] 05-14-2023 11:22-0500 Systolic blood pressure 118 mm[Hg] Marielena West APRN.CRIBBER Work Phone: [facility] 04-22-2023 10:11-0400 Body height 188 cm Zuleika Avalos PA-C Work Phone: [facility] 04-22-2023 10:11-0400 Body weight 138.94 kg Zuleika Avalos PA-C Work Phone: [facility] 04-22-2023 10:11-0400 Diastolic blood pressure 74 mm[Hg] Zuleika Avalos PA-C Work Phone: [facility] 04-22-2023 10:11-0400 Heart rate 102 /min Zuleika Avalos PA-C Work Phone: [facility] 04-22-2023 10:11-0400 Systolic blood pressure 112 mm[Hg] Zuleika Avalos PA-C Work Phone: [facility] 04-09-2023 13:37-0400 Body weight 138.53 kg Kelly Plotts WARP SCOURING VAT TENDER.CNM Work Phone: [facility] 04-09-2023 13:37-0400 Diastolic blood pressure 80 mm[Hg] Kelly Plotts WARP SCOURING VAT TENDER.CNM Work Phone: [facility] 04-09-2023 13:37-0400 Systolic blood pressure 118 mm[Hg] Kelly Plotts WARP SCOURING VAT TENDER.CNM Work Phone: [facility] 03-20-2023 11:10-0400 Body temperature 97.59 [degF] Keeley Maycol WARP SCOURING VAT TENDER.CRIBBER Work Phone: [facility] 03-20-2023 11:10-0400 Body weight 135.44 kg Keeley Maycol WARP SCOURING VAT TENDER.CRIBBER Work Phone: [facility] 03-20-2023 11:10-0400 Diastolic blood pressure 76 mm[Hg] Keeley Maycol WARP SCOURING VAT TENDER.CRIBBER Work Phone: [facility] 03-20-2023 11:10-0400 Heart rate 102 /min Keeley Maycol WARP SCOURING VAT TENDER.CRIBBER Work Phone: [facility] 03-20-2023 11:10-0400 Respiratory rate 18 /min Keeley Maycol WARP SCOURING VAT TENDER.CRIBBER Work Phone: [facility] 03-20-2023 11:10-0400 SaO2% (BldA) [Mass fraction] 96 % Keeley Maycol WARP SCOURING VAT TENDER.CRIBBER Work Phone: [facility] 03-20-2023 11:10-0400 Systolic blood pressure 102 mm[Hg] Keeley Maycol WARP SCOURING VAT TENDER.CRIBBER Work Phone: [facility] 01-28-2023 14:02-0400 Diastolic blood pressure 75 mm[Hg] 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 WARP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 Work Phone: [facility] 01-28-2023 14:02-0400 Heart rate 112 /min 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 WARP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 Work Phone: [facility] 01-28-2023 14:02-0400 Systolic blood pressure 111 mm[Hg] 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 WARP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 Work Phone: [facility] 01-28-2023 13:48-0400 Body temperature 98.6 [degF] 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 WARP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 Work Phone: [facility] 01-28-2023 13:48-0400 Body weight 135.17 kg 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 WARP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 Work Phone: [facility] 01-28-2023 13:48-0400 Respiratory rate 18 /min 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 WARP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 Work Phone: [facility] 01-28-2023 13:48-0400 SaO2% (BldA) [Mass fraction] 98 % 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 WARP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 Work Phone: [facility] 01-13-2023 14:14-0400 Body temperature 96.69 [degF] Gopal Yanez MD Work Phone: [facility] 01-13-2023 14:14-0400 Body weight 134.72 kg Gopal Yanez MD Work Phone: [facility] 01-13-2023 14:14-0400 Diastolic blood pressure 76 mm[Hg] Gopal Yanez MD Work Phone: [facility] 01-13-2023 14:14-0400 Heart rate 77 /min Gopal Yanez MD Work Phone: [facility] 01-13-2023 14:14-0400 SaO2% (BldA) [Mass fraction] 97 % Gopal Yanez MD Work Phone: [facility] 01-13-2023 14:14-0400 Systolic blood pressure 119 mm[Hg] Gopal Yanez MD Work Phone: [facility] 01-10-2023 11:50-0400 Body temperature 98.29 [degF] Krislyn Aberegg PA Work Phone: [facility] 01-10-2023 11:50-0400 Body weight 133.99 kg Krislyn Aberegg PA Work Phone: [facility] 01-10-2023 11:50-0400 Diastolic blood pressure 64 mm[Hg] Krislyn Aberegg PA Work Phone: [facility] 01-10-2023 11:50-0400 Heart rate 93 /min Krislyn Aberegg PA Work Phone: [facility] 01-10-2023 11:50-0400 Respiratory rate 18 /min Krislyn Aberegg PA Work Phone: [facility] 01-10-2023 11:50-0400 SaO2% (BldA) [Mass fraction] 96 % Krislyn Aberegg PA Work Phone: [facility] 01-10-2023 11:50-0400 Systolic blood pressure 92 mm[Hg] Krislyn Aberegg PA Work Phone: [facility] 12-24-2022 14:43-0400 Body height 188 cm Kera Praisler-Wood WARP SCOURING VAT TENDER.CRIBBER Work Phone: [facility] 12-24-2022 14:43-0400 Body temperature 98.91 [degF] Kera [place] WARP SCOURING VAT TENDER.CRIBBER Work Phone: [facility] 12-24-2022 14:43-0400 Body weight 134.72 kg Kera [place] WARP SCOURING VAT TENDER.CRIBBER Work Phone: [facility] 12-24-2022 14:43-0400 Diastolic blood pressure 70 mm[Hg] Kera P[place]-Wood WARP SCOURING VAT TENDER.CRIBBER Work Phone: [facility] 12-24-2022 14:43-0400 Heart rate 99 /min Kera [place] WARP SCOURING VAT TENDER.CRIBBER Work Phone: [facility] 12-24-2022 14:43-0400 Respiratory rate 16 /min Kera P[place] WARP SCOURING VAT TENDER.CRIBBER Work Phone: [facility] 12-24-2022 14:43-0400 SaO2% (BldA) [Mass fraction] 97 % Kera [place] WARP SCOURING VAT TENDER.CRIBBER Work Phone: [facility] 12-24-2022 14:43-0400 Systolic blood pressure 98 mm[Hg] Kera Praisler-Wood WARP SCOURING VAT TENDER.CRIBBER Work Phone: [facility] 11-05-2022 11:31-0400 Body height 182.9 cm Pulm Wstr Work Phone: [facility] 11-05-2022 11:31-0400 Body weight 131.09 kg Pulm Wstr Work Phone: [facility] 11-05-2022 11:31-0400 Heart rate 105 /min Pulm Wstr Work Phone: [facility] 11-05-2022 11:31-0400 Respiratory rate 14 /min Pulm Wstr Work Phone: [facility] 11-05-2022 11:31-0400 SaO2% (BldA) [Mass fraction] 100 % Pulm Wstr Work Phone: [facility] 11-04-2022 12:41-0400 Body temperature 98.4 [degF] Rebeca Foley WARP SCOURING VAT TENDER.CRIBBER Work Phone: [facility] 11-04-2022 12:41-0400 Body weight 131.72 kg Rebeca Foley WARP SCOURING VAT TENDER.CRIBBER Work Phone: [facility] 11-04-2022 12:41-0400 Diastolic blood pressure 86 mm[Hg] Rebeca Foley WARP SCOURING VAT TENDER.CRIBBER Work Phone: [facility] 11-04-2022 12:41-0400 Heart rate 89 /min Rebeca Foley WARP SCOURING VAT TENDER.CRIBBER Work Phone: [facility] 11-04-2022 12:41-0400 Respiratory rate 21 /min Rebeca Foley WARP SCOURING VAT TENDER.CRIBBER Work Phone: [facility] 11-04-2022 12:41-0400 SaO2% (BldA) [Mass fraction] 98 % Rebeca Foley WARP SCOURING VAT TENDER.CRIBBER Work Phone: [facility] 11-04-2022 12:41-0400 Systolic blood pressure 120 mm[Hg] Rebeca Foley WARP SCOURING VAT TENDER.CRIBBER Work Phone: [facility] 10-28-2022 13:05-0400 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 Work Phone: [facility] 10-28-2022 13:05-0400 Body weight 132 kg 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 WARP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 Work Phone: [facility] 10-28-2022 13:05-0400 Diastolic blood pressure 82 mm[Hg] 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 WARP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 Work Phone: [facility] 10-28-2022 13:05-0400 Heart rate 105 /min 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 WARP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 Work Phone: [facility] 10-28-2022 13:05-0400 Respiratory rate 16 /min 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 WARP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 Work Phone: [facility] 10-28-2022 13:05-0400 SaO2% (BldA) [Mass fraction] 100 % 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 WARP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 Work Phone: [facility] 10-28-2022 13:05-0400 Systolic blood pressure 118 mm[Hg] 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 WARP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 Work Phone: [facility] 09-30-2022 10:21-0400 Body height 181.6 cm Santi Mcallister MD Work Phone: [facility] 09-30-2022 10:21-0400 Body weight 132.45 kg Santi Mcallister MD Work Phone: [facility] 09-30-2022 10:21-0400 Diastolic blood pressure 80 mm[Hg] Santi Mcallister MD Work Phone: [facility] 09-30-2022 10:21-0400 Heart rate 87 /min Santi Mcallister MD Work Phone: [facility] 09-30-2022 10:21-0400 SaO2% (BldA) [Mass fraction] 99 % Santi Mcallister MD Work Phone: [facility] 09-30-2022 10:21-0400 Systolic blood pressure 110 mm[Hg] Santi Mcallister MD Work Phone: [facility] 03-10-2023 13:07-0500 Body temperature 97.59 [degF] Hailey Jett MD Work Phone: [facility] 09-06-2022 13:07-0500 Body weight 131.54 kg Hailey Jett MD Work Phone: [facility] 09-06-2022 13:07-0500 Diastolic blood pressure 82 mm[Hg] Hailey Jett MD Work Phone: [facility] 09-06-2022 13:07-0500 Heart rate 93 /min Hailey Jett MD Work Phone: [facility] 09-06-2022 13:07-0500 SaO2% (BldA) [Mass fraction] 98 % Hailey Jett MD Work Phone: [facility] 09-06-2022 13:07-0500 Systolic blood pressure 120 mm[Hg] Hailey Jett MD Work Phone: [facility] 09-05-2022 11:05-0500 Body temperature 98.91 [degF] Krislyn Aberegg PA Work Phone: [facility] 09-05-2022 11:05-0500 Body weight 131.36 kg Krislyn Aberegg PA Work Phone: [facility] 09-05-2022 11:05-0500 Diastolic blood pressure 66 mm[Hg] Krislyn Aberegg PA Work Phone: [facility] 09-05-2022 11:05-0500 Heart rate 104 /min Krislyn Aberegg PA Work Phone: [facility] 09-05-2022 11:05-0500 Respiratory rate 18 /min Krislyn Aberegg PA Work Phone: [facility] 09-05-2022 11:05-0500 SaO2% (BldA) [Mass fraction] 98 % Krislyn Aberegg PA Work Phone: [facility] 09-05-2022 11:05-0500 Systolic blood pressure 118 mm[Hg] Krislyn Aberegg PA Work Phone: [facility] 08-22-2022 14:47-0500 Body height 181.6 cm Russell Masci DO Work Phone: [facility] 08-22-2022 14:47-0500 Body temperature 97 [degF] Russell Masci DO Work Phone: [facility] 08-22-2022 14:47-0500 Body weight 130.18 kg Russell Masci DO Work Phone: [facility] 08-22-2022 14:47-0500 Diastolic blood pressure 74 mm[Hg] Russell Masci DO Work Phone: [facility] 08-22-2022 14:47-0500 Heart rate 98 /min Russell Masci DO Work Phone: [facility] 08-22-2022 14:47-0500 SaO2% (BldA) [Mass fraction] 96 % Russell Masci DO Work Phone: [facility] 08-22-2022 14:47-0500 Systolic blood pressure 124 mm[Hg] Russell Masci DO Work Phone: [facility] 08-07-2022 12:58-0500 Body height 180.3 cm Zuleika Chris PA-C Work Phone: [facility] 08-07-2022 12:58-0500 Body weight 132 kg Zuleika Chris PA-C Work Phone: [facility] 08-07-2022 12:58-0500 Diastolic blood pressure 76 mm[Hg] Zuleika Chris PA-C Work Phone: [facility] 08-07-2022 12:58-0500 Heart rate 101 /min Zuleika Chris PA-C Work Phone: [facility] 08-07-2022 12:58-0500 Systolic blood pressure 122 mm[Hg] Zuleika Chirs PA-C Work Phone: [facility] 07-09-2022 13:21-0500 Body temperature 98.4 [degF] Arthur Athy PA-C Work Phone: [facility] 07-09-2022 13:21-0500 Body weight 130.05 kg Arthur Athy PA-C Work Phone: [facility] 07-09-2022 13:21-0500 Diastolic blood pressure 72 mm[Hg] Arthur Athy PA-C Work Phone: [facility] 07-09-2022 13:21-0500 Heart rate 115 /min Arthur Athy PA-C Work Phone: [facility] 07-09-2022 13:21-0500 Respiratory rate 18 /min Arthur Athy PA-C Work Phone: [facility] 07-09-2022 13:21-0500 SaO2% (BldA) [Mass fraction] 98 % Arthur Athy PA-C Work Phone: [facility] 07-09-2022 13:21-0500 Systolic blood pressure 124 mm[Hg] Arthur Athy PA-C Work Phone: [facility] 07-05-2022 13:15-0500 SaO2% (BldA) [Mass fraction] 96 % Mirna Hayes MD Work Phone: [facility] 07-05-2022 13:00-0500 Diastolic blood pressure 75 mm[Hg] Mirna Hayes MD Work Phone: [facility] 07-05-2022 13:00-0500 Systolic blood pressure 115 mm[Hg] Mirna Hayes MD Work Phone: [facility] 07-05-2022 11:25-0500 Heart rate 80 /min Mirna Hayes MD Work Phone: [facility] 07-05-2022 11:17-0500 Respiratory rate 12 /min Mirna Hayes MD Work Phone: [facility] 07-05-2022 10:21-0500 Body temperature 96.8 [degF] Mirna Hayes MD Work Phone: [facility] 06-11-2022 13:09-0500 Body temperature 98.71 [degF] Antonio Smalls MD Work Phone: [facility] 06-11-2022 13:09-0500 Body weight 130.82 kg Antonio Smalls MD Work Phone: [facility] 06-11-2022 13:09-0500 Heart rate 96 /min Antonio Smalls MD Work Phone: [facility] 06-11-2022 13:09-0500 Respiratory rate 18 /min Antonio Smalls MD Work Phone: [facility] 06-11-2022 13:09-0500 SaO2% (BldA) [Mass fraction] 98 % Antonio Smalls MD Work Phone: [facility] 05-30-2022 11:12-0500 Body weight 131.09 kg Suyapa Recinos MD Work Phone: [facility] 05-30-2022 11:12-0500 Diastolic blood pressure 78 mm[Hg] Suyapa Recinos MD Work Phone: [facility] 05-30-2022 11:12-0500 Systolic blood pressure 116 mm[Hg] Suyapa Recinos MD Work Phone: [facility] 05-07-2022 13:33-0500 Body height 180.3 cm Annia Hogan W[employer]OURING [employer].CRIBBER Work Phone: [facility] 05-07-2022 13:33-0500 Body weight 132 kg Annia Hogan W[employer]ING [employer].CRIBBER Work Phone: [facility] 05-07-2022 13:33-0500 Diastolic blood pressure 82 mm[Hg] Annia Hogan W[employer] SC[employer]ING [employer].CRIBBER Work Phone: [facility] 05-07-2022 13:33-0500 Heart rate 93 /min Annia Hogan W[employer] SC[employer]ING VAT T[employer]ER.CRIBBER Work Phone: [facility] 05-07-2022 13:33-0500 Systolic blood pressure 118 mm[Hg] Annia Hogan JAMI Work Phone: [facility] 04-18-2022 15:58-0400 Body temperature 97 [degF] Antonio Smalls MD Work Phone: [facility] 04-18-2022 15:58-0400 Body weight 130.64 kg Antonio Smalls MD Work Phone: [facility] 04-18-2022 15:58-0400 Heart rate 100 /min Antonio Smalls MD Work Phone: [facility] 04-18-2022 15:58-0400 Respiratory rate 20 /min Antonio Smalls MD Work Phone: [facility] 04-11-2022 02:23-0400 Diastolic blood pressure 86 mm[Hg] [facility] Work Phone: 04-11-2022 02:23-0400 Heart rate 76 /min [facility] Work Phone: 04-11-2022 02:23-0400 Respiratory rate 14 /min [facility] Work Phone: 04-11-2022 02:23-0400 SaO2% (BldA) [Mass fraction] 98 % [facility] Work Phone: 04-11-2022 02:23-0400 Systolic blood pressure 133 mm[Hg] [facility] Work Phone: 04-11-2022 00:49-0400 Body height 185.[address] [facility] Work Phone: 04-11-2022 00:49-0400 Body mass index (BMI) [Ratio] 38.9 kg/m2 [facility] Work Phone: 04-11-2022 00:49-0400 Body temperature 98.2 [degF] [facility] Work Phone: 04-11-2022 00:49-0400 Body weight 133.[address] [facility] Work Phone: 03-29-2022 15:16-0400 Body weight 130.64 kg Suyapa Recinos MD Work Phone: [facility] 03-29-2022 15:16-0400 Diastolic blood pressure 78 mm[Hg] Suyapa Recinos MD Work Phone: [facility] 03-29-2022 15:16-0400 Systolic blood pressure 116 mm[Hg] Suyapa Recinos MD Work Phone: [facility] 03-12-2022 13:35-0400 Body height 182.5 cm Antonio Smalls MD Work Phone: [facility] 03-12-2022 13:35-0400 Body temperature 97.59 [degF] Antonio Smalls MD Work Phone: [facility] 03-12-2022 13:35-0400 Body weight 129.96 kg Antonio Smalls MD Work Phone: [facility] 03-12-2022 13:35-0400 Diastolic blood pressure 92 mm[Hg] Antonio Smalls MD Work Phone: [facility] 03-12-2022 13:35-0400 Heart rate 100 /min Antonio Smalls MD Work Phone: [facility] 03-12-2022 13:35-0400 Respiratory rate 20 /min Antonio Smalls MD Work Phone: [facility] 03-12-2022 13:35-0400 Systolic blood pressure 118 mm[Hg] Antonio Smalls MD Work Phone: [facility] 02-27-2022 14:56-0400 Body temperature 98.71 [degF] Kera Joseph APRN.CRIBBER Work Phone: [facility] 02-27-2022 14:56-0400 Body weight 130.36 kg Kera Joseph APRN.CRIBBER Work Phone: [facility] 02-27-2022 14:56-0400 Diastolic blood pressure 86 mm[Hg] Kera Praisler-Wood W[employer]OURING [employer]ER.CRIBBER Work Phone: [facility] 02-27-2022 14:56-0400 Heart rate 98 /min Kera Praisler-Wood W[employer]ING [employer].CRIBBER Work Phone: [facility] 02-27-2022 14:56-0400 Respiratory rate 21 /min Kera Praisler-Wood W[employer]ING [employer].CRIBBER Work Phone: [facility] 02-27-2022 14:56-0400 SaO2% (BldA) [Mass fraction] 99 % Kera Praisler-Wood [employer]ING [employer].CRIBBER Work Phone: [facility] 02-27-2022 14:56-0400 Systolic blood pressure 114 mm[Hg] Kera Praisler-Wood W[employer]ING [employer]ER.CRIBBER Work Phone: [facility] 02-20-2022 18:09-0400 Body temperature 99 [degF] Kera Praisler-Wood W[employer]ING [employer]ER.CRIBBER Work Phone: [facility] 02-20-2022 18:09-0400 Body weight 129.82 kg Kera Praisler-Wood W[employer]ING [employer]ER.CRIBBER Work Phone: [facility] 02-20-2022 18:09-0400 Diastolic blood pressure 90 mm[Hg] Kera Praisler-Wood W[employer]ING [employer]ER.CRIBBER Work Phone: [facility] 02-20-2022 18:09-0400 Heart rate 108 /min Kera Praisler-Wood W[employer]ING [employer].CRIBBER Work Phone: [facility] 02-20-2022 18:09-0400 Respiratory rate 21 /min Kera Praisler-Wood W[employer]ING [employer].CRIBBER Work Phone: [facility] 02-20-2022 18:09-0400 SaO2% (BldA) [Mass fraction] 100 % Kera Praisler-Wood W[employer]ING [employer].CRIBBER Work Phone: [facility] 02-20-2022 18:09-0400 Systolic blood pressure 118 mm[Hg] Kera Praisler-Wood W[employer]ING [employer].CRIBBER Work Phone: [facility] 01-26-2022 01:59-0400 Body height 185.[address] [facility] Work Phone: 01-26-2022 01:59-0400 Body mass index (BMI) [Ratio] 38.6 kg/m2 [facility] Work Phone: 01-26-2022 01:59-0400 Body temperature 98.4 [degF] [facility] Work Phone: 01-26-2022 01:59-0400 Body weight 132.[address] [facility] Work Phone: 01-26-2022 01:59-0400 Diastolic blood pressure 82 mm[Hg] [facility] Work Phone: 01-26-2022 01:59-0400 Heart rate 119 /min [facility] Work Phone: 01-26-2022 01:59-0400 Respiratory rate 18 /min [facility] Work Phone: 01-26-2022 01:59-0400 SaO2% (BldA) [Mass fraction] 100 % [facility] Work Phone: 01-26-2022 01:59-0400 Systolic blood pressure 143 mm[Hg] [facility] Work Phone: Encounters Encounter Date Encounter Type Care Provider Facility Start: 05-04-2025 End: 05-04-2025 ambulatory KATE Scott SILVA Facility:[facility] Start: 04-25-2025 End: 04-25-2025 ambulatory KATE D SHIRA Facility:[facility] Start: 04-15-2025 End: 04-15-2025 ambulatory Radha Gagnon Facility:[facility] Start: 04-02-2025 End: 04-02-2025 ambulatory ARIA RUSSELL Facility:[facility] Start: 02-18-2025 End: 02-18-2025 ambulatory KATE SILVA Facility:[facility] Start: 02-14-2025 End: 02-14-2025 Telephone encounter Kate Silva MD Work Phone: [facility] [place] Comment on above: Refill Request Start: 02-13-2025 End: 02-14-2025 Refill Kate Silva MD Work Phone: [facility] [place] Comment on above: Refill Request Start: 02-09-2025 End: 02-09-2025 ambulatory KATE SILVA Facility:[facility] Start: 01-11-2025 End: 01-13-2025 Refill Kate Silva MD Work Phone: [facility] [place] Comment on above: Refill Request Start: 01-03-2025 End: 01-03-2025 ambulatory KATE SILVA Facility:[facility] Start: 01-03-2025 End: 01-03-2025 Patient encounter procedure Sher Hollingsworth APRN.CNP Work Phone: [facility] [place] Comment on above: Generalized anxiety disorder with panic attacks (Primary Dx); Panic attacks; Palpitations; Lightheaded; Attention deficit hyperactivity disorder (ADHD), combined type; Obstructive sleep apnea syndrome; Type 2 diabetes mellitus without complication, without long-term current use of insulin (HCC); Fatty liver Start: 12-06-2024 End: 12-06-2024 Patient encounter procedure Sher Hollingsworth APRN.CNP Work Phone: [facility] [place] Comment on above: Generalized anxiety disorder with panic attacks (Primary Dx); Panic attacks; Palpitations; Post-traumatic stress disorder; Attention deficit hyperactivity disorder (ADHD), combined type; Obstructive sleep apnea syndrome; Type 2 diabetes mellitus without complication, without long-term current use of insulin (HCC); Fatty liver; Obesity, Class III, BMI >= 40; Migraine without status migrainosus, not intractable, unspecified migraine type Start: 12-06-2024 End: 12-06-2024 ambulatory KATE SILVA Facility:[facility] Start: 12-02-2024 End: 12-02-[address] Yuly Aquino MD -Cardiovascular Services Work Phone: Start: 12-02-2024 End: 12-02-2024 Emergency department patient visit Dr. Kate Silva MD Work Phone: -Emergency Department Work Phone: Start: 12-02-2024 End: 12-20-[address] Kate Silva MD Work Phone: [facility] Work Phone: Comment on above: Pvc s Start: 12-02-2024 End: 12-02-2024 ambulatory Robinsonadeluz Aquino Facility:[facility] Start: 11-23-2024 End: 12-21-2024 [facility] Work Phone: Neurology Comment on above: CMN Start: 11-21-2024 End: 11-24-2024 ambulatory [facility] Provider [facility] [place] Comment on above: Blood sugar Start: 11-13-2024 End: 11-15-2024 ambulatory Hailey Jett MD Work Phone: Neurology Comment on above: Question Start: 11-08-2024 End: 11-08-2024 [facility] Start: 11-08-2024 End: 11-08-2024 Patient encounter procedure Sher Hollingsworth APRN.CRIBBER Work Phone: [facility] [place] Comment on above: Generalized anxiety disorder with panic attacks (Primary Dx); Panic attacks; Type 2 diabetes mellitus without complication, without long-term current use of insulin (HCC); Fatty liver; Obesity, Class III, BMI >= 40; Migraine without status migrainosus, not intractable, unspecified migraine type; Attention deficit hyperactivity disorder (ADHD), combined type Start: 11-04-2024 End: 11-08-2024 ambulatory [facility] [place] Comment on above: Lightheaded Start: 11-03-2024 End: 11-03-2024 ambulatory [facility] [place] Comment on above: Pill question Start: 11-02-2024 End: 11-02-2024 ambulatory KATE SILVA Facility:[facility] Start: 11-02-2024 End: 11-02-2024 Patient encounter procedure Sher Hollingsworth W[employer]ING [employer].CRIBBER Work Phone: [facility] [place] Comment on above: Generalized anxiety disorder with panic attacks (Primary Dx); Panic attacks; Palpitations; Insomnia due to mental disorder; Post-traumatic stress disorder Start: 11-01-2024 End: 01-01-2025 Follow-up encounter Estrellita Kumar W[employer]ING [employer].CRIBBER Work Phone: Neurology Start: 10-28-2024 End: 10-29-2024 Emergency department patient visit Dr. Julianna Hughes DO -Emergency Department Work Phone: Start: 10-26-2024 End: 10-26-2024 Patient encounter procedure Sher Hollingsworth W[employer]ING [employer].CRIBBER Work Phone: [facility] [place] Comment on above: Generalized anxiety disorder with panic attacks (Primary Dx); Lightheaded; Dizziness; Numbness and tingling; Palpitations; Type 2 diabetes mellitus without complication, without long-term current use of insulin (HCC) Start: 10-26-2024 End: 10-27-2024 ambulatory [facility] [place] Comment on above: Med question Start: 10-25-2024 End: 10-25-2024 Emergency department patient visit Dr. Kate Silva MD Work Phone: -Emergency Department Work Phone: Start: 10-22-2024 End: 10-22-2024 ambulatory KATE SILVA Facility:[facility] Start: 10-20-2024 End: 10-20-2024 Office outpatient visit 25 minutes Kate Silva MD Work Phone: [facility] [place] Comment on above: Acute bronchitis, un specified organism (Primary Dx); Lightheaded; Dizziness; Moderate episode of recurrent major depressive disorder (HCC); Generalized anxiety disorder with panic attacks; Dandruff; Seborrheic dermatitis; Attention deficit hyperactivity disorder (ADHD), combined type Start: 10-20-2024 End: 10-20-2024 ambulatory KATE SILVA Facility:[facility] Start: 10-16-2024 End: 10-18-2024 ambulatory [facility] [place] Comment on above: Toñito question Start: 10-13-2024 End: 10-13-2024 Emergency department patient visit DR KATE SILVA MD Facility:[facility] Start: 10-12-2024 End: 10-14-2024 Follow-up encounter Pat Ferrer APRN.CRIBBER Work Phone: OB/Gynecology Comment on above: Results Start: 10-11-2024 End: 10-11-2024 ambulatory Goapl Yanez MD Work Phone: Hematology/Oncology Comment on above: Leukocytosis, unspec ified type (Primary Dx) Start: 10-11-2024 End: 10-11-2024 Patient encounter procedure Gopal Yanez MD Work Phone: Hematology/Oncology Start: 10-11-2024 End: 10-11-2024 ambulatory KATE SILVA Facility:[facility] Start: 10-11-2024 End: 10-11-2024 Patient encounter procedure Pat Ferrer APRN.CRIBBER Work Phone: OB/Gynecology Comment on above: Vulvar itching (Prim nafisa Dx); Missed menses Start: 10-07-2024 End: 10-08-2024 Telephone encounter Gopal Yanez MD Work Phone: Hematology/Oncology Comment on above: Appointment Patient Question Start: 10-06-2024 End: 10-06-2024 Emergency department patient visit Dr. Kate Silva MD Work Phone: -Emergency Department Work Phone: Start: 10-06-2024 End: 10-06-2024 ambulatory Pat Ferrer APRN.CRIBBER Work Phone: OB/Gynecology Comment on above: Question Start: 10-01-2024 End: 10-01-2024 ambulatory KATE SILVA Facility:[facility] Start: 10-01-2024 End: 10-01-2024 Office outpatient visit [...] Start: 09-27-2024 End: 09-27-2024 ambulatory Pat Ferrer W[employer]ING [employer].CRIBBER Work Phone: OB/Gynecology Comment on above: Question Start: 09-16-2024 End: 09-16-2024 Refill Kate Silva MD Work Phone: [facility] [place] Comment on above: Refill Request Start: 09-13-2024 End: 09-13-2024 Refill Sher Hollingsworth W[employer]ING [employer].CRIBBER Work Phone: [facility] [place] Comment on above: Refill Request Start: 08-30-2024 End: 08-30-2024 ambulatory KATE SILVA Facility:[facility] Start: 08-30-2024 End: 08-30-2024 Patient encounter procedure Santi Mcallister MD Work Phone: Cardiology Comment on above: Marfan's syndrome (P rimary Dx); PVC (premature ventricular contraction) Start: 08-24-2024 End: 08-24-2024 ambulatory KATE SILVA Facility:[facility] Start: 08-24-2024 End: 08-24-2024 Office outpatient visit 25 minutes Radha Long PA-C Work Phone: [facility] Comment on above: Acute recurrent sinu sitis, unspecified location (Primary Dx) Start: 08-23-2024 End: 09-13-2024 ambulatory Kate Silva MD Work Phone: [facility] [place] Comment on above: Test results Start: 08-09-2024 End: 08-09-2024 ambulatory KATE SILVA Facility:[facility] Start: 08-09-2024 End: 08-09-2024 ambulatory KATE SILVA Facility:[facility] Start: 08-09-2024 End: 08-09-2024 Office outpatient visit [...] Refill Estrellita Molina PA-C Work Phone: [facility] [place] Comment on above: Refill Request Start: 07-13-2024 End: 07-13-2024 ambulatory Pat Adrianf W[employer]ING [employer].CRIBBER Work Phone: OB/Gynecology Comment on above: Period Start: 06-23-2024 End: 07-14-2024 ambulatory Sher Darrick W[employer]ING [employer]ER.CRIBBER Work Phone: [facility] [place] Comment on above: Shot Start: 06-17-2024 End: 06-17-2024 Refill Sher Darrick W[employer]ING [employer]ER.CRIBBER Work Phone: Pediatrics [place] Comment on above: Refill Request Start: 06-01-2024 End: 06-01-2024 ambulatory Hailey Jett MD Work Phone: Neurology Comment on above: Sleep mask Start: 05-25-2024 End: 06-03-2024 ambulatory Sher Hollingsworth W[employer]ING [employer]ER.CRIBBER Work Phone: [facility] [place] Comment on above: Trulicty question Start: 05-19-2024 End: 05-19-2024 ambulatory KATE SILVA Facility:[facility] Start: 05-19-2024 End: 05-19-2024 Patient encounter procedure Arthur Joseph PA-C Work Phone: [facility] Comment on above: Acute non-recurrent frontal sinusitis (Primary Dx) Start: 05-16-2024 End: 05-18-2024 Refill Sher Darrick WARP SC[employer]ING VAT [employer]ENDER.CRIBBER Work Phone: [facility] [place] Comment on above: Refill Request Start: 05-13-2024 End: 05-13-2024 ambulatory Pat Agata W[employer]ING VAT TENDER.CRIBBER Work Phone: OB/Gynecology Comment on above: Question Start: 05-12-2024 End: 05-12-2024 ambulatory KATE SILVA Facility:[facility] Start: 05-12-2024 End: 05-12-2024 Patient encounter procedure Rebeca Beasley APRN.CNM Work Phone: OB/Gynecology Comment on above: Vaginal discharge (P rimary Dx); Vaginal itching; Vulvar itching Start: 05-03-2024 End: 05-03-2024 Telephone encounter Sher Hollingsworth APRN.CRIBBER Work Phone: [facility] [place] Comment on above: Results Start: 04-30-2024 End: 04-30-2024 Patient encounter procedure Sher Porterr WARP SC[employer]ING VAT [employer]ER.CRIBBER Work Phone: [facility] [place] Comment on above: Type 2 diabetes alexus itus without complication, without long- term current use of insulin (HCC) (Primary Dx); Urinary frequency; Migraine without status migrainosus, not intractable, unspecified migraine type; Vaginal yeast infection Start: 04-27-2024 End: 05-13-2024 ambulatory Pat [place] W[employer]ING VAT T[employer]ER.CRIBBER Work Phone: OB/Gynecology Comment on above: Question Start: 04-16-2024 End: 04-19-2024 ambulatory Sher Darrick W[employer] SC[employer]ING VAT TENDER.CRIBBER Work Phone: [facility] [place] Comment on above: Question Start: 04-13-2024 End: 04-14-2024 Refill Sher Darrick WARP SC[employer]ING VAT TENDER.CRIBBER Work Phone: [facility] [place] Comment on above: Refill Request Start: 04-12-2024 End: 04-13-2024 ambulatory Pat Agata WARP SC[employer]ING VAT TENDER.CRIBBER Work Phone: OB/Gynecology Comment on above: Yest infection Start: 03-20-2024 End: 03-22-2024 ambulatory Sher Darrick W[employer] SC[employer]ING VAT TENDER.CRIBBER Work Phone: [facility] [place] Comment on above: Truliicty question Start: 03-19-2024 End: 03-19-2024 Patient encounter procedure Sher Darrick WARP SC[employer]ING VAT TENDER.CRIBBER Work Phone: [facility] [place] Comment on above: Type 2 diabetes alexus itus without complication, without long- term current use of insulin (HCC) (Primary Dx); Fatty liver; Obesity, Class III, BMI >= 40; Vapes nicotine containing substance; Encounter for immunization; Encounter for therapeutic drug monitoring; Screening for lipid disorders Start: 03-15-2024 End: 03-15-2024 Refill Hemalatha Dejesus MD Work Phone: [facility] [place] Comment on above: Refill Request Start: 03-04-2024 End: 03-05-2024 Patient encounter procedure Pat [place] W[employer]ING VAT TENDER.CRIBBER Work Phone: OB/Gynecology Comment on above: Vaginal yeast infect ion (Primary Dx) Refill Request Start: 03-02-2024 End: 03-02-2024 Patient encounter procedure Rebeca Foley WARP SCOURING VAT TENDER.CRIBBER Work Phone: [facility] Comment on above: Rhinosinusitis (Prim nafisa Dx) Start: 02-18-2024 End: 02-18-2024 ambulatory Pat [place] WARP SC[employer]ING VAT TENDER.CRIBBER Work Phone: OB/Gynecology Comment on above: Question Start: 02-14-2024 End: 02-16-2024 ambulatory Sher Darrick WARP SC[employer]ING VAT TENDER.CRIBBER Work Phone: [facility] [place] Comment on above: Question Start: 02-10-2024 End: 02-10-2024 Patient encounter procedure Pat [place] WARP SC[employer]ING VAT TENDER.CRIBBER Work Phone: OB/Gynecology Comment on above: Vaginal discharge (P rimary Dx) Refill Request Start: 02-08-2024 Refill Hemalatha Dejesus MD Work Phone: [facility] [place] Comment on above: Refill Request Start: 02-02-2024 End: 02-02-2024 Patient encounter procedure Gerardo Holder MD Work Phone: Orthopaedics Comment on above: Right hand pain Start: 01-27-2024 End: 01-27-2024 Patient encounter procedure Sher Hollingsworth WARP SC[employer]ING VAT [employer]ENDER.CRIBBER Work Phone: [facility] [place] Comment on above: Type 2 diabetes alexus itus without complication, without long- term current use of insulin (HCC) (Primary Dx); Fatty liver; Obesity, Class III, BMI >= 40; Adenomyosis Start: 01-26-2024 Telephone encounter Pat carrizales WARP SC[employer]ING VAT TENDER.CRIBBER Work Phone: OB/Gynecology Comment on above: Results Start: 01-23-2024 End: 01-23-2024 ambulatory [facility] Start: 01-23-2024 End: 01-23-2024 Patient encounter procedure i Tech 1 Stained [employer] [facility] Start: 01-22-2024 ambulatory Pat Ferrer WARP SCOURING VAT TENDER.CRIBBER Work Phone: OB/Gynecology Comment on above: No period Start: 01-09-2024 Refill Sher Hollingsworth WARP SC[employer]ING VAT TENDER.CRIBBER Work Phone: [facility] Comment on above: Refill Request Start: 12-28-2023 ambulatory Estrellita Molina PA-C Work Phone: [facility] [place] Comment on above: Acid reflex pills Start: 12-22-2023 End: 12-22-2023 Subsequent hospital visit by physician Xr [facility] [place] Work Phone: Radiology Comment on above: Foot injury, left, i nitial encounter [S99.922A] Start: 12-22-2023 End: 12-22-2023 Patient encounter procedure Kera Joseph APRN.CRIBBER Work Phone: [facility] Comment on above: Foot injury, left, i nitial encounter (Primary Dx) Start: 12-17-2023 End: 12-17-2023 Subsequent hospital visit by physician Kailey [facility] Work Phone: Radiology Comment on above: Right hand pain [[id number]] Start: 12-17-2023 End: 12-17-2023 Patient encounter procedure Terrence Hill WARP SC[employer]ING VAT TENDER.CRIBBER Work Phone: [facility] Comment on above: Right hand pain (Carmen nick Dx) Start: 12-15-2023 ambulatory Sher Hollingsworth WARP SCOURING VAT TENDER.CRIBBER Work Phone: [facility] [place] Comment on above: Ritalin Yeast pill Start: 12-15-2023 Telephone encounter Pat carrizales WARP SCOURING VAT TENDER.CRIBBER Work Phone: OB/Gynecology Comment on above: Results Start: 12-15-2023 End: 12-15-2023 Patient encounter procedure Sher Hollingsworth WARP SCOURING VAT TENDER.CRIBBER Work Phone: [facility] [place] Comment on above: Migraine without sta tus migrainosus, not intractable, unspecified migraine type (Primary Dx); Attention deficit hyperactivity disorder (ADHD), combined type; Impacted cerumen of right ear; Acute otitis externa of right ear, unspecified type Start: 12-12-2023 End: 12-12-2023 Patient encounter procedure Patgigi BazziAgata WARP SCOURING VAT TENDER.CRIBBER Work Phone: OB/Gynecology Comment on above: Vaginal itching (Carmen nick Dx) Start: 12-10-2023 Refill Sher Hollingsworth WARP SCOURING VAT TENDER.CRIBBER Work Phone: [facility] [place] Comment on above: Refill Request Start: 12-02-2023 End: 12-02-2023 Patient encounter procedure Marielena West WARP SCOURING VAT TENDER.CRIBBER Work Phone: [facility] Comment on above: Right upper quadrant abdominal pain (Primary Dx) Start: 11-30-2023 ambulatory Estrellita Molina PA-C Work Phone: [facility] [place] Comment on above: Liver biopsy Start: 11-21-2023 End: 11-21-2023 ambulatory RASTA DUMONT Facility:[facility] Start: 11-18-2023 Chart abstracting [facility] Main Work Phone: Neurology Comment on above: CMN Start: 11-16-2023 ambulatory Estrellita Morseadalberto PA-C Work Phone: [facility] [place] Comment on above: Poop test Pills questions Start: 11-13-2023 Refill Kate novoa MD Work Phone: Internal Medicine [place] Comment on above: Refill Request Start: 11-11-2023 Orders Only Joel Bai RN [facility] Comment on above: NAFLD (nonalcoholic fatty liver disease) (Primary Dx) Start: 11-03-2023 ambulatory Estrellita Morseadalberto PA-C Work Phone: [facility] [place] Comment on above: Liver biopsy Start: 10-22-2023 End: 10-22-2023 Patient encounter procedure [facility] Comment on above: NAFLD (nonalcoholic fatty liver disease) (Primary Dx); Diarrhea, unspecified type; Gastroesophageal reflux disease, unspecified whether esophagitis present Start: 10-20-2023 ambulatory Suyapa patel MD Work Phone: OB/Gynecology Comment on above: No period Start: 10-09-2023 End: 10-09-2023 Patient encounter procedure Aria BURGESS Work Phone: [facility] Comment on above: Sore throat (Primary Dx); Bacterial sinusitis Start: 09-16-2023 End: 09-16-2023 Office outpatient visit 25 minutes Kate Silva MD Work Phone: Internal Medicine [place] Comment on above: Migraine without sta tus migrainosus, not intractable, unspecified migraine type (Primary Dx); Attention deficit hyperactivity disorder (ADHD), combined type; Vaping nicotine dependence, non-tobacco product; Recurrent major depressive disorder, in partial remission (HCC) Start: 09-11-2023 End: 09-11-2023 Patient encounter procedure Pat Ferrer APRN.CNP Work Phone: OB/Gynecology Comment on above: Vaginal discharge (P rimary Dx); Vaginal itching Start: 08-18-2023 End: 08-18-2023 Patient encounter procedure Los Barber APRN.CRIBBER Work Phone: [facility] Comment on above: Exposure to SARS-ass ociated coronavirus (Primary Dx) Start: 08-13-2023 Refill Nicolle ramos MD Work Phone: OB/Gynecology Start: 08-11-2023 End: 08-11-2023 Patient encounter procedure Los Barber APRN.CRIBBER Work Phone: [facility] Comment on above: Contusion of right h [...] with patient Gopal Yanez MD Work Phone: [facility] Start: 06-06-2023 End: 06-06-2023 Office outpatient visit 25 minutes Kate Silva MD Work Phone: Internal Medicine [place] Comment on above: Attention deficit hy peractivity [...] Kate novoa MD Work Phone: [facility] [place] Comment on above: Refill Request Start: 05-15-2023 Telephone encounter Yared duncan APRN.CRIBBER Work Phone: [facility] Comment on above: Results Start: 05-14-2023 End: 05-14-2023 Patient encounter procedure Marielena West APRN.CRIBBER Work Phone: [facility] Comment on above: Vaginal odor (Primar y Dx) Start: 04-28-2023 End: 04-28-2023 Subsequent hospital visit by physician [facility] Work Phone: Radiology Comment on above: Fatty liver [K76.0] Start: 04-22-2023 End: 04-22-2023 Patient encounter procedure Zuleika Avalos PA-C Work Phone: [facility] [place] Comment on above: Fatty liver (Primary Dx); Elevated LFTs; Intermittent diarrhea Start: 04-17-2023 End: 04-17-2023 Subsequent hospital visit by physician [facility] Work Phone: Radiology Comment on above: Secondary amenorrhea [N91.1] Start: 04-15-2023 Refill Sher Hollingsworth APRN.CRIBBER Work Phone: Internal Medicine [place] Comment on above: Refill Request Start: 04-09-2023 End: 04-09-2023 Patient encounter procedure Kelly Nunez APRN.CNM Work Phone: OB/Gynecology Comment on above: Secondary amenorrhea (Primary Dx); Missed menses Start: 03-20-2023 End: 03-20-2023 Patient encounter procedure Keeley Severino APRN.CRIBBER Work Phone: [facility] Comment on above: Protracted URI (Prim nafisa Dx); Non-recurrent acute serous otitis media of right ear Start: 03-17-2023 ambulatory Suyapa patel MD Work Phone: OB/Gynecology Comment on above: Provera Start: 03-11-2023 Refill Sher Hollingsworth APRN.CRIBBER Work Phone: [facility] [place] Comment on above: Refill Request Start: 02-25-2023 End: 02-25-2023 ambulatory Hailey Jett MD Work Phone: Neurology Comment on above: ESTEBAN (obstructive sle ep apnea) (Primary Dx); ESTEBAN on CPAP Start: 02-25-2023 End: 02-25-2023 Telemedicine consultation with patient Hailey Jett MD Work Phone: [facility] Start: 02-19-2023 Telephone encounter Hailey Jett MD Work Phone: Neurology Comment on above: PAP Therapy Follow U p (DOWNLOAD) Start: 01-31-2023 Chart abstracting [facility] Main Work Phone: Neurology Comment on above: CMN Start: 01-29-2023 ambulatory Hailey Jett MD Work Phone: NEUROLOGY Comment on above: C pap Start: 01-28-2023 End: 01-28-2023 Office outpatient visit 25 minutes 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 APRN.CEMENT FINISHER Work Phone: Internal [facility] [place] Comment on [...] Patient encounter procedure Aria BURGESS Work Phone: [facility] Comment on above: Vaginal discharge (P rimary Dx) Start: 01-08-2023 Refill 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 APRN.CEMENT FINISHER Work Phone: [facility] [place] Comment on above: Refill Request Start: 01-02-2023 ambulatory Hailey Jett MD Work Phone: NEUROLOGY Comment on above: Number to call to sc hedule Start: 12-28-2022 Chart abstracting [facility] Main Work Phone: Neurology Start: 12-24-2022 End: 12-24-2022 Patient encounter procedure Kera Joseph WARP SCOURING VAT TENDER.CRIBBER Work Phone: [facility] Comment on above: Sore throat (Primary Dx); Other acute nonsuppurative otitis media of right ear, recurrence not specified Start: 12-24-2022 ambulatory Hailey Jett MD Work Phone: NEUROLOGY Comment on above: Heart question Start: 12-11-2022 ambulatory Santi Mcallister MD Work Phone: Cardiology Comment on above: Heart Start: 12-05-2022 Refill Zuleika adame PA-C Work Phone: [facility] [place] Comment on above: Refill Request Start: 11-28-2022 ambulatory Sher Hollingsworth WARP SCOURING VAT TENDER.CRIBBER Work Phone: Internal Medicine [place] Comment on above: Bv Start: 11-09-2022 Refill 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 WARP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 Work Phone: Internal Medicine [place] Comment on above: Refill Request Start: 11-08-2022 End: 11-08-2022 ambulatory Hailey Jett MD Work Phone: NEUROLOGY Comment on above: ESTEBAN (obstructive sle ep apnea) (Primary Dx) Start: 11-08-2022 End: 11-08-2022 Telemedicine consultation with patient Hailey Jett MD Work Phone: [facility] Start: 11-05-2022 End: 11-05-2022 ambulatory [facility] Work Phone: [facility] Comment on above: Spirometry Start: 11-05-2022 End: 11-05-2022 Patient encounter procedure [facility] Work Phone: [place] [facility] [place] Start: 11-04-2022 End: 11-04-2022 Patient encounter procedure Rebeca Foley WARP SCOURING VAT TENDER.CRIBBER Work Phone: [facility] Comment on above: URI, acute (Primary Dx); Acute otitis media, left Start: 10-31-2022 ambulatory UNKNOWN PROVIDER Facili ty:[facility] Start: 10-28-2022 End: 10-28-2022 Office outpatient visit 25 minutes 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 APRN.CEMENT FINISHER Work Phone: [facility] [place] Comment on above: Migraine without sta tus migrainosus, not intractable, unspecified migraine type (Primary Dx); Encounter for immunization; Screening for HIV (human immunodeficiency virus); Attention deficit hyperactivity disorder (ADHD), combined type; SOBOE (shortness of breath on exertion); Obesity, Class III, BMI >= 40 Start: 10-12-2022 Chart abstracting [facility] Main Work Phone: Neurology Start: 10-11-2022 End: 10-12-2022 ambulatory HAILEY JETT Facility:[facility] Start: 10-09-2022 Refill Zuleika adame PA-C Work Phone: [facility] [place] Comment on above: Refill Request Returning Patient's [...] 09-05-2022 End: 09-05-2022 Patient encounter procedure Aria BURGESS Work Phone: [facility] Comment on above: Sore throat (Primary Dx) Start: 09-02-2022 ambulatory Russell Gupta Maymirta D O Work Phone: Hematology/Oncology Comment on above: Question regarding F LOW CYTOMETRY PERIPHERAL BLOOD LEUK/LYMPH (FCLEUK) Start: 09-01-2022 Telephone encounter Russell larios DO Work Phone: Hematology/Oncology Comment on above: Results Start: 08-27-2022 Telephone encounter Russell larios DO Work Phone: Hematology/Oncology Comment on above: Results Start: 08-26-2022 ambulatory Suyapa patel MD Work Phone: OB/Gynecology Comment on above: Provera Start: 08-22-2022 End: 08-22-2022 ambulatory Russell Burris DO Work Phone: Hematology/Oncology Comment on above: Leukocytosis, unspec ified type (Primary Dx); Thrombocytosis Start: 08-22-2022 End: 08-22-2022 Patient encounter procedure Russell Burris DO Work Phone: [place] [facility] Start: 08-14-2022 Refill Antonio cheatham MD Work Phone: Pediatrics [place] Comment on above: Refill Request Start: 08-08-2022 ambulatory [facility]-C [facility] Comment on above: Question regarding V ITAMIN D 25 HYDROXY Start: 08-07-2022 End: 08-07-2022 Patient encounter procedure Zuleika Perez PA-C [facility] Comment on above: Fatty liver (Primary Dx); Malaise and fatigue Start: 08-05-2022 Refill Antonio cheatham MD Work Phone: [facility] [place] Comment on above: Refill Request Start: 07-18-2022 Telephone encounter Johnson Painter MD Work Phone: [facility] Comment on above: Results (BV, Yeimy ) Start: 07-09-2022 End: 07-09-2022 Refill Antonio Smalls MD Work Phone: [facility] [place] Comment on above: Refill Request Sinobronchitis (Prim nafisa Dx) Start: 07-07-2022 Refill Antonio cheatham MD Work Phone: [facility] [place] Comment on above: Refill Request Start: 07-05-2022 End: 07-05-2022 Subsequent hospital visit by physician Mirna Hayes MD Work Phone: [facility] Comment on above: Fatty liver [K76.0] Start: 07-03-2022 Refill Antonio cheatham MD Work Phone: [facility] [place] Comment on above: Refill Request Start: 06-30-2022 Refill Zuleika adame PA-C Work Phone: [facility] Comment on above: Refill Request Start: 06-13-2022 Telephone encounter Zuleika Ambrociolan PA-C Work Phone: [facility] Comment on above: Results Start: 06-11-2022 E-mail encounter fro m caregiver Zuleika Chris PA-C Work Phone: [facility] Start: 06-11-2022 Follow-up encounter Zuleika Perez PA-C Work Phone: [facility] Comment on above: Fibroscan follow up Refill Request Start: 06-11-2022 End: 06-11-2022 Patient encounter procedure Antonio Smalls MD Work Phone: [facility] [place] Comment on above: Chronic rhinitis (Pr imary Dx); Dysfunction of both eustachian tubes; Chronic cough; Shortness of breath Start: 06-07-2022 Refill Antonio cheatham MD Work Phone: [facility] [place] Comment on above: Refill Request Start: 06-06-2022 Telephone encounter Antonio Smalls MD Work Phone: [facility] [place] Comment on above: Refill Request Start: 05-30-2022 End: 05-30-2022 Refill Suyapa Recinos MD Work Phone: OB/Gynecology Comment on above: Refill Request Medicine question Irregular menstrual cycle (Primary Dx) Start: 05-24-2022 Telephone encounter James hartley MD Work Phone: OB/Gynecology Comment on above: Patient Question Start: 05-09-2022 Orders Only Antonio cheatham MD Work Phone: [facility] [place] Comment on above: Attention deficit hy peractivity disorder (ADHD), combined type Start: 05-07-2022 End: 05-07-2022 Patient encounter procedure Annia Hogan WARP SCOURING VAT TENDER.CRIBBER Work Phone: [facility] [place] Comment on above: Fatty liver (Primary Dx); Abnormal laboratory test; Malaise and fatigue; Diarrhea, unspecified type; Abdominal pain, unspecified abdominal location; Nausea Start: 05-03-2022 ambulatory Suyapa patel MD Work Phone: OB/Gynecology Comment on above: Medication question Start: 04-30-2022 Telephone encounter Antonio Smalls MD Work Phone: [facility] [place] Comment on above: Ultrasound results Start: 04-29-2022 End: 04-29-2022 Subsequent hospital visit by physician [facility] Work Phone: Radiology Comment on above: Abnormal laboratory test [R89.9] Start: 04-18-2022 End: 04-18-2022 Patient encounter procedure Antonio Smalls MD Work Phone: [facility] [place] Comment on above: Abnormal laboratory test (Primary Dx); Malaise and fatigue; Diarrhea, unspecified type; Abdominal pain, unspecified abdominal location Start: 04-18-2022 Telephone encounter Antonio Smalls MD Work Phone: [facility] [place] Comment on above: Referral Request Start: 04-11-2022 End: 04-11-2022 [facility] Start: 04-05-2022 Telephone encounter Antonio Smalls MD Work Phone: [facility] [place] Comment on above: Results (not normal) Start: 04-04-2022 Telephone encounter Antonio Smalls MD Work Phone: [facility] [place] Comment on above: Results Start: 03-29-2022 End: 03-29-2022 Patient encounter procedure Suyapa Recinos MD Work Phone: OB/Gynecology Comment on above: Skin tag of anus (Pr imary Dx); Irregular menstrual cycle Start: 03-12-2022 Telephone encounter Antonio Smalls MD Work Phone: [facility] [place] Comment on above: Referral Request Start: 03-12-2022 End: 03-12-2022 Patient encounter procedure Antonio Smalls MD Work Phone: [facility] [place] Comment on above: Attention deficit hy peractivity disorder (ADHD), combined type (Primary Dx); Migraine without status migrainosus, not intractable, unspecified migraine type; Anxiety; Pain in right foot; Encounter for immunization Start: 03-01-2022 Telephone encounter Kera Joseph APRN.CRIBBER Work Phone: [facility] Comment on above: Results Start: 02-27-2022 End: 02-27-2022 Patient encounter procedure Kera Joseph APRN.CRIBBER Work Phone: [facility] Comment on above: Abnormal urination ( Primary Dx); Irregular periods; Acute vaginitis Start: 02-20-2022 End: 02-20-2022 Subsequent hospital visit by physician [facility] Work Phone: Radiology Comment on above: Acute right ankle pa in [M25.571] Start: 02-20-2022 End: 02-20-2022 Patient encounter procedure Kera Joseph APRN.CRIBBER Work Phone: [facility] Comment on above: Foot pain, right (Pr imary Dx); Acute right ankle pain Start: 01-30-2022 Refill Megha Nixon ed, MD Work Phone: [facility] [place] Comment on above: Refill Request Start: 01-26-2022 End: 01-26-2022 [facility] Start: 01-04-2022 Refill Antonio cheatham MD Work Phone: [facility] [place] Comment on above: Refill Request Start: 12-07-2021 Refill Hemalatha Dejesus MD Work Phone: [facility] [place] Comment on above: Refill Request Start: 11-06-2021 Refill Antonio cheatham MD Work Phone: [facility] [place] Comment on above: Refill Request Start: 10-11-2021 Telephone encounter Antonio Smalls MD Work Phone: [facility] [place] Comment on above: Results Start: 10-09-2021 Refill Antonio cheatham MD Work Phone: [facility] [place] Comment on above: Refill Request Start: 07-12-2021 End: 07-12-2021 Subsequent hospital visit by physician [facility] [place] Work Phone: Radiology Comment on above: Injury of toe on rig ht foot, initial encounter [H19.921A] Start: 04-19-2021 End: 04-19-2021 ambulatory NATO VALDEZ [facility] Start: 04-18-2021 End: 04-19-2021 ambulatory GERRI [facility] Start: 04-10-2021 ambulatory [facility] Start: 04-10-2021 End: 04-10-2021 Emergency department patient visit [facility] Start: 04-04-2021 ambulatory GERRI BERNAL [facility] Start: 04-29-2018 [facility] Start: 04-29-2017 End: 04-29-2017 Ambulatory [facility] Facility:[facility] Procedures Date Procedure Procedure Detail Performing Clinician Start: 12-02-2024 Urnls dip stick/tabl et reagent auto microscopy Dr. Kate Silva MD Work Phone: Start: 12-02-2024 D-dimer assay, quantitative Dr. Kate Silva MD Work Phone: Comment on above: NORMAL D-Dimer level (<0.50) indicates no DVT or PE. Start: 12-02-[address] Kate Silva MD Work Phone: Start: 10-28-[address] Kate Silva MD Work Phone: Start: 10-28-2024 CT of thorax, abdome n and pelvis with contrast Dr. Kate Silva MD Work Phone: Start: 10-25-[address] Kate Silva MD Work Phone: Start: 10-25-2024 Plain chest X-ray Dr. Albin Silva MD Work Phone: Start: 10-11-2024 UA DIP,URINE HCG (POC) Pat Agata WARP SCOURING VAT TENDER.CRIBBER Work Phone: Start: 10-06-2024 CT of head without contrast Dr. Kate Silva MD Work Phone: Start: 10-06-[address] Kate Silva MD Work Phone: Start: 09-29-2024 Urnls dip stick/tabl et reagent auto microscopy Dr. Kate Silva MD Work Phone: Start: 09-29-2024 Plain chest X-ray Dr. Albin Silva MD Work Phone: Start: 09-29-[address] Kate Silva MD Work Phone: Start: 08-30-2024 Ecg routine ecg w/le ast 12 lds i&r only [facility] Provider Start: 04-30-2024 Urnls dip stick/tabl et rgnt auto w/o microscopy Sher Hollingsworth WARP SCOURING VAT TENDER.CRIBBER Work Phone: Start: 01-23-2024 Us pelvic nonobstetr ic real-time image complete Pat Agata WARP SCOURING VAT TENDER.CRIBBER Work Phone: Start: 12-22-2023 Radex foot complete minimum 3 views Kera Joseph WARP SCOURING VAT TENDER.CRIBBER Work Phone: Start: 12-17-2023 Radex hand minimum 3 views Terrence iLz WARP SCOURING VAT TENDER.CRIBBER Work Phone: Start: 10-09-2023 STREP A MOLECULAR (POC) Aria BURGESS Work Phone: Start: 08-18-2023 COVID & INFLUENZA A/ B & RSV NAAT, ROUTINE Los Barber WARP SCOURING VAT TENDER.CRIBBER Work Phone: Start: 08-11-2023 BACTERIAL VAGINOSIS NAAT Nicolle Hopson MD Work Phone: Start: 08-11-2023 Iadna trichomonas vaginalis amplified probe tech Nicolle Hopson MD Work Phone: Start: 06-06-2023 INFLUENZA VACCINE, A GE 6 MO - 64 YR, QUADRIVALENT (AFLURIA, FLULAVAL, FLUZONE) Kate Silva MD Work Phone: Start: 04-28-2023 End: 04-28-2023 Us abdominal real time w/image limited Zuleika Avalos PA-C Work Phone: Start: 04-17-2023 Us transvaginal Leah Nunez WARP SCOURING VAT TENDER.CNM Work Phone: Start: 12-24-2022 STREP A MOLECULAR (POC) Kera Joseph WARP SCOURING VAT TENDER.CRIBBER Work Phone: Start: 11-05-2022 Brncdilat rspse spmt ry pre&post-brncdilat admn 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 WARP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 Work Phone: Start: 09-05-2022 STREP A MOLECULAR (POC) Aria BURGESS Work Phone: Start: 07-09-2022 COVID WITH FLUA+B, ROUTINE Arthur R Athy STEVEN Work Phone: Start: 07-05-2022 US IMAGING GUIDED BI OPSY LIVER Zuleika Perez PA-C Work Phone: Start: 04-29-2022 Us abdominal real ti me w/image limited Antonio Smalls MD Work Phone: Start: 03-12-2022 MENINGOCOCCAL GROUP B VACCINE 2 DOSE Antonio Smalls MD Work Phone: Start: 03-12-2022 INFLUENZA VACCINE QUADRIVALENT 6 MO - 64 YRS IM Antonio Smalls MD Work Phone: Start: 02-27-2022 Urnls dip stick/tabl et rgnt auto w/o microscopy Keeley Severino WARP SCOURING VAT TENDER.CRIBBER Work Phone: Start: 02-20-2022 Radex ankle complete minimum 3 views Kera Joseph WARP SCOURING VAT TENDER.CRIBBER Work Phone: Start: 01-26-2022 Radiography of ankle Start: 01-26-2022 X-ray of both feet Start: 07-12-2021 Radex toe minimum 2 views Antonio Smalls MD Work Phone: Start: 09-08-2018 Adult depression screening assessment Antonio Smalls MD Work Phone: Laboratory test resu lt abnormal Abnormal laboratory test Antonio Smalls MD Work Phone: Laboratory test resu lt abnormal Abnormal laboratory test Antonio Smalls MD Work Phone: Laboratory test resu lt abnormal Abnormal laboratory test Antonio Smalls MD Work Phone: Laboratory test resu lt abnormal Abnormal laboratory test Annia Hogan WARP SCOURING VAT TENDER.CRIBBER Work Phone: Laboratory test resu lt abnormal Abnormal laboratory test 1 Work Phone: Plan of Treatment Date Care Activity Detail Author Start: 08-09-2034 Urine microalbumin profile DTaP,Tdap,Td Vaccine (8 - Td or Tdap) [facility] Start: 02-09-2026 Annual PCP Team Chronic Disease Visit Annual PCP Team Chronic Disease Visit [facility] Start: 01-03-2026 Annual PCP Team Chronic Disease Visit Annual PCP Team Chronic Disease Visit [facility] Start: 12-06-2025 Annual PCP Team Chronic Disease Visit Annual PCP Team Chronic Disease Visit [facility] Start: 11-08-2025 Annual PCP Team Chronic Disease Visit Annual PCP Team Chronic Disease Visit [facility] Start: 11-02-2025 Annual PCP Team Chronic Disease Visit Annual PCP Team Chronic Disease Visit [facility] Start: 11-02-2025 End: 11-02-2025 Patient encounter procedure 11/02/2025 1:40 PM EDT Office Visit [facility] [place] [address] [place] [address] Kate Silva MD [address] [place] [address] follow up 3 months [facility] [place] Comment on above: follow up 3 months Start: 10-27-2025 Glaucoma screening Dilated Retinal Exam [facility] Start: 10-26-2025 Annual PCP Team Chronic Disease Visit Annual PCP Team Chronic Disease Visit [facility] Start: 10-01-2025 Annual PCP Team Chronic Disease Visit Annual PCP Team Chronic Disease Visit [facility] Start: 08-09-2025 Annual PCP Team Chronic Disease Visit Annual PCP Team Chronic Disease Visit [facility] Start: 08-05-2025 End: 08-05-2025 Patient encounter procedure 08/05/2025 3:20 PM EST Office Visit [facility] [place] [address] [place] [address] Kate Silva MD [address] [place] [address] follow up 3 months [facility] [place] Comment on above: follow up 3 months Start: 05-04-2025 End: 05-04-2025 Patient encounter procedure 05/04/2025 2:00 PM EST Office Visit [facility] [place] [address] [place] [address] Kate Silva MD [address] [place] [address] 3 month f/u [facility] [place] Comment on above: 3 month f/u Start: 04-30-2025 Annual PCP Team Chronic Disease Visit Annual PCP Team Chronic Disease Visit [facility] Start: 04-30-2025 Covid-19 Vaccine ( season) Covid-19 Vaccine ( season) [facility] Comment on above: Postponed from 02/29/2024 (Declined at t his time) Start: 04-30-2025 Diabetic foot examination Diabetic Foot Exam [facility] Start: 04-30-2025 Hepatitis B screening Urine Albumin:Creatinine Ratio [facility] Start: 04-30-2025 Hepatitis B surface antibody level LDL Cholesterol [facility] Start: 04-25-2025 End: 04-25-2025 Patient encounter procedure 04/25/2025 8:40 AM EDT Office Visit Cardiology [address] [place] [address] Santi Mcallister MD [address] [facility] [address] [place], [place] [id number] 6 month follow up Cardiology Comment on above: 6 month follow up Start: 03-19-2025 Annual PCP Team Chronic Disease Visit Annual PCP Team Chronic Disease Visit [facility] Start: 02-28-2025 Influenza vaccination Influenza Vaccine (#1) [facility] Start: 02-09-2025 End: 02-09-2025 Patient encounter procedure 02/09/2025 4:00 PM EDT Office Visit [facility] [place] [address] [place] [address] Kate Silva MD [address] [place] [address] 3 month f/u [facility] [place] Comment on above: 3 month f/u Start: 02-06-2025 Hemoglobin A1c measurement HbA1C [facility]autam Start: 01-26-2025 Annual PCP Team Chronic Disease Visit Annual PCP Team Chronic Disease Visit [facility] Start: 01-14-2025 End: 01-14-2025 Patient encounter procedure 01/14/2025 2:40 PM EDT Office Visit Cardiology [address] [place] [id number] Palpitations [R00.2] Cardiology Comment on above: Palpitations [R00.2] Start: 01-03-2025 End: 01-03-2025 Patient encounter procedure 01/03/2025 1:20 PM EDT Office Visit Internal Medicine [place] [address] [place] [address] Sher Hollingsworth APRN.CRIBBER [address] [place] [address] 4 week follow up [facility] [place] Comment on above: 4 week follow up Start: 12-06-2024 End: 12-06-2024 Patient encounter procedure 12/06/2024 2:00 PM EDT Office Visit Internal [facility] [place] [address] [place] [address] Sher Hollingsworth APRN.CRIBBER [address] [place] [address] 4 week follow up [facility] [place] Comment on above: 4 week follow up Start: 12-02-2024 [facility] Start: 12-02-2024 External ecg scanning analysis report XTRNL ECG REC<48 HR SCAN A/R [facility] Start: 12-02-2024 Xtrnl ecg & 48 hr recording XTRNL ECG REC<48 HRS REC [facility] Start: 11-16-2024 End: 11-16-2024 Patient encounter procedure 11/16/2024 4:20 PM EDT Office Visit Neurology [address] [place] [address] Hailey Jett MD [address] [place] [address] FOLLOW UP / SLEEP Neurology Comment on above: FOLLOW UP / SLEEP Start: 11-08-2024 End: 11-08-2024 Patient encounter procedure [facility] [place] Comment on above: 3 month f/u Start: 10-29-2024 [facility] Start: 10-28-2024 Hemoglobin A1c measurement HbA1C [facility] gautam Start: 10-25-2024 [facility] Start: 10-22-2024 End: 10-22-2024 ambulatory 10/22/2024 8:30 AM EDT [facility] Neurology [address] [address] Estrellita Kumar APRN.CRIBBER [address] [address] Numbness and tingling [R20.0, R20.2] Neurology Comment on above: Numbness and tingling [R20.0, R20.2] Start: 10-20-2024 End: 10-20-2024 Patient encounter procedure 10/20/2024 10:00 AM EDT Office Visit Internal Medicine [place] [address] [place] [address] Kate Silva MD [address] [place] [address] [facility] fatigue, lightheaded [facility] [place] Comment on above: [facility] Er fatigue, lighthea ded Start: 10-11-2024 End: 10-11-2024 ambulatory 10/11/2024 3:40 PM EDT Visit (SP) Office Hematology/Oncology [address] [place] [address] Gopal Yanez MD [address] [place] [address] OV* Hematology/Oncology Comment on above: OV* Start: 10-11-2024 End: 01-10-2025 CBC W Auto Differential panel - Blood COMPLETE BLOOD COUNT AND DIFFERENTIAL Lab Routine Leukocytosis, unspecified type Expected: 10/11/2024, Expires: 01/10/2025 [facility] Work Phone: Comment on above: Expected: 10/11/2024, Expires: Start: 10-11-2024 End: 01-10-2025 Erythrocyte sedimentation rate SEDIMENTATION RATE, WESTERGREN Lab Routine Leukocytosis, unspecified type Expected: 10/11/2024, Expires: 01/10/2025 [facility] Comment on above: Expected: 10/11/2024, Expires: Start: 10-11-2024 End: 10-11-2024 Patient encounter procedure 10/11/2024 9:30 AM EDT Office Visit OB/Gynecology [address] [place] [address] Pat Ferrer APRN.CRIBBER [address] [place] [address] Vulvar irritation [N90.89] OB/Gynecology Comment on above: Vulvar irritation [N90.89] Start: 10-06-2024 [facility] Start: 10-01-2024 End: 12-31-2024 CBC W Auto Differential panel - Blood COMPLETE BLOOD COUNT AND DIFFERENTIAL Lab Routine Leukocytosis, unspecified type Thrombocytosis Other fatigue Expected: 10/01/2024, Expires: 12/31/2024 [facility] Work Phone: Comment on above: Expected: 10/01/2024, Expires: Start: 10-01-2024 End: 12-31-2024 Thyrotropin [Units/volume] in Serum or Plasma THYROID STIMULATING HORMONE Lab Routine Other fatigue Expected: 10/01/2024, Expires: 12/31/2024 [facility] Comment on above: Expected: 10/01/2024, Expires: Start: 10-01-2024 End: 12-31-2024 Thyroxine (T4) free [Mass/volume] in Serum or Plasma T4 FREE/FREE THYROXINE Lab Routine Other fatigue Expected: 10/01/2024, Expires: 12/31/2024 [facility] Comment on above: Expected: 10/01/2024, Expires: Start: 10-01-2024 End: 12-31-2024 Triiodothyronine (T3) Free [Mass/volume] in Serum or Plasma T3, FREE Lab Routine Other fatigue Expected: 10/01/2024, Expires: 12/31/2024 [facility] Comment on above: Expected: 10/01/2024, Expires: Start: 09-29-2024 [facility] Start: 09-14-2024 End: 09-14-2024 Patient encounter procedure 09/14/2024 2:00 PM EDT Office Visit Internal Medicine [place] [address] [place] [address] Sher Hollingsworth APRN.CRIBBER [address] [place], [place] [address] numbness and weakness [facility] [place] Comment on above: numbness and weakness Start: 08-30-2024 End: 08-30-2024 Patient encounter procedure Cardiology Comment on above: heart problems/ check up Start: 08-09-2024 End: 11-08-2024 C reactive protein [Mass/volume] in Serum or Plasma [facility] Comment on above: Expected: 08/09/2024, Expires: Start: 08-09-2024 End: 11-08-2024 Comprehensive metabolic 2000 panel - Serum or Plasma [facility] Work Phone: Comment on above: Expected: 08/09/2024, Expires: Start: 08-09-2024 End: 11-08-2024 Creatine kinase [Enzymatic activity/volume] in Serum or Plasma [facility] Comment on above: Expected: 08/09/2024, Expires: Start: 08-09-2024 End: 11-08-2024 Hemoglobin A1c in Blood [facility] Comment on above: Expected: 08/09/2024, Expires: Start: 08-09-2024 End: 08-09-2024 Patient encounter procedure 08/09/2024 10:20 AM EST Office Visit Internal Medicine [place] [address] [place] [address] Kate Silva MD [address] [place] [address] 3 month follow up Internal Medicine [place] Comment on above: 3 month follow up Start: 07-25-2024 Hemoglobin A1c measurement HbA1C [facility] Start: 06-06-2024 Covid-19 Vaccine (#1) Covid-19 Vaccine (#1) [facility] Comment on above: Postponed from 07/02/1999 (Declined at t his time) Start: 06-06-2024 Covid-19 Vaccine () Covid-19 Vaccine () [facility] Comment on above: Postponed from 02/28/2023 (Declined at t his time) Start: 04-30-2024 End: 07-30-2024 Microalbumin/Creatinine [Mass Ratio] in Urine [facility] Comment on above: Expected: 04/30/2024, Expires: Start: 04-30-2024 End: 04-30-2024 Patient encounter procedure 04/30/2024 1:00 PM EDT Office Visit Internal Medicine [place] [address] [place] [address] Sher Hollingsworth APRN.[facility] [address] [place], [place] [address] 6 week follow up Internal [facility] [place] Comment on above: 6 week follow up Start: 04-16-2024 End: 07-16-2024 CBC W Auto Differential panel - Blood COMPLETE BLOOD COUNT AND DIFFERENTIAL Lab Routine Encounter for therapeutic drug monitoring Expected: 04/16/2024, Expires: 07/16/2024 [facility] Work Phone: Comment on above: Expected: 04/16/2024, Expires: Start: 04-16-2024 End: 07-16-2024 Comprehensive metabolic 2000 panel - Serum or Plasma COMPREHENSIVE METABOLIC PANEL Lab Routine Fatty liver Encounter for therapeutic drug monitoring Expected: 04/16/2024, Expires: 07/16/2024 [facility] Comment on above: Expected: 04/16/2024, Expires: Start: 04-16-2024 End: 07-16-2024 Hemoglobin A1c in Blood HEMOGLOBIN A1C Lab Routine Type 2 diabetes mellitus without complication, without long-term current use of insulin (HCC) Expected: 04/16/2024, Expires: 07/16/2024 [facility] Comment on above: Expected: 04/16/2024, Expires: Start: 04-16-2024 End: 07-16-2024 LIPID PANEL, NONFASTING LIPID PANEL, NONFASTING Lab Routine Type 2 diabetes mellitus without complication, without long-term current use of insulin (HCC) Screening for lipid disorders Expected: 04/16/2024, Expires: 07/16/2024 [facility] Comment on above: Expected: 04/16/2024, Expires: Start: 04-16-2024 End: 07-16-2024 Microalbumin/Creatinine [Mass Ratio] in Urine ALBUMIN/CREATININE RATIO, URINE Lab Routine Type 2 diabetes mellitus without complication, without long-term current use of insulin (HCC) Expected: 04/16/2024, Expires: 07/16/2024 [facility] Comment on above: Expected: 04/16/2024, Expires: Start: 03-19-2024 End: 03-19-2024 Patient encounter procedure 03/19/2024 10:00 AM EDT Office Visit Internal Medicine [place] [address] [place] [address] Sher Hollingsworth APRN.CRIBBER [address] [place] [address] 3 month follow up [facility] [place] Comment on above: 3 month follow up Start: 03-04-2024 End: 03-04-2024 Patient encounter procedure 03/04/2024 12:45 PM EDT Office Visit OB/Gynecology [address] [place] [address] Pat Ferrer APRN.CRIBBER [address] [place] [address] Diagnosed recently with DM-Hx recurrent yeast infections OB/Gynecology Comment on above: Diagnosed recently with DM-Hx recurrent yeast infections Start: 02-29-2024 Covid-19 Vaccine () Covid-19 Vaccine () [facility] Start: 02-29-2024 Covid-19 Vaccine ( season) Covid-19 Vaccine () [facility] Start: 02-29-2024 Influenza vaccination Influenza Vaccine (#1) [facility] Start: 02-10-2024 End: 02-10-2024 Patient encounter procedure 02/10/2024 3:00 PM EDT Office Visit OB/Gynecology [address] [place] [address] Pat Ferrer APRN.CRIBBER [address] [place] [address] yeast infection OB/Gynecology Comment on above: yeast infection Start: 02-02-2024 End: 02-02-2024 Patient encounter procedure 02/02/2024 2:15 PM EDT Office Visit Orthopaedics [address] [place] [address] Gerardo Holder MD [address] [place] [address] Right hand pain [M79.641] Orthopaedics Comment on above: Right hand pain [M79.641] Start: 01-27-2024 End: 01-27-2024 Patient encounter procedure 01/27/2024 2:00 PM EDT Office Visit Internal Medicine [place] [address] [facility] [place] [address] Sher Hollingsworth APRN.CRIBBER [address] [facility] [place] [address] diabetes f/u [facility] [place] Comment on above: diabetes f/u Start: 01-22-2024 End: 04-22-2024 TESTOSTERONE, FREE AND TOTAL TESTOSTERONE, FREE AND TOTAL Lab Routine Amenorrhea Expected: 01/22/2024, Expires: 04/22/2024 [facility] Work Phone: Comment on above: Expected: 01/22/2024, Expires: Start: 01-13-2024 End: 01-13-2024 ambulatory 01/13/2024 11:00 AM EDT Results Only [facility] [address] [place] [address] [facility] Comment on above: lab Start: 01-11-2024 CHLAMYDIA SCREENING (18-24) CHLAMYDIA SCREENING (18-24) [facility] Start: 01-11-2024 GC (GONORRHEA) SCREENING (18-24) GC (GONORRHEA) SCREENING (18-24) [facility] Start: 12-15-2023 End: 12-15-2023 Patient encounter procedure 12/15/2023 1:00 PM EDT Office Visit Internal Medicine [place] [address] [place], [place] [id number] Sher Hollingsworth APRN.CRIBBER [address] [place], [place] [address] 3 month follow up [facility] [place] Comment on above: 3 month follow up Start: 12-12-2023 End: 12-12-2023 Patient encounter procedure 12/12/2023 12:45 PM EDT Office Visit OB/Gynecology [address], [place] [id number] Pat Ferrer APRN.CRIBBER [address] [place] [address] uti OB/Gynecology Comment on above: uti Start: 12-06-2023 PAP TESTING PAP TESTING [facility] Start: 12-06-2023 Screening for malignant neoplasm of cervix [facility] Start: 11-21-2023 End: 11-21-2023 Admission to same day surgery center 11/21/2023 10:00 AM EDT - 11/21/2023 11:00 AM EDT Surgery [facility] [address] [place] [address] [place], [address] [id number] PERCUTANEOUS NEEDLE BIOPSY OF LIVER [facility] Comment on above: PERCUTANEOUS NEEDLE BIOPSY OF LIVER Start: 11-21-2023 End: 11-21-2023 Biopsy liver needle percutaneous PERCUTANEOUS NEEDLE BIOPSY OF LIVER NAFLD (nonalcoholic fatty liver disease) Autoantibody titer positive 11/21/2023 10:00 AM EDT [facility] Start: 11-21-2023 Subsequent hospital visit by physician 11/21/2023 10:00 AM EDT Hospital Encounter [facility] [address] [place] [address] [place], [address] [facility], [address] [address] NAFLD (nonalcoholic fatty liver disease) [K76.0] [facility] Comment on above: NAFLD (nonalcoholic fatty liver disease) [K76.0] Start: 11-20-2023 CHLAMYDIA SCREENING () CHLAMYDIA SCREENING () [facility] Start: 11-20-2023 GC (GONORRHEA) SCREENING () GC (GONORRHEA) SCREENING () [facility] Start: 11-11-2023 End: 02-10-2024 CBC panel - Blood by Automated count COMPLETE BLOOD COUNT Lab Routine NAFLD (nonalcoholic fatty liver disease) Expected: 11/11/2023, Expires: 02/10/2024 [facility] Work Phone: Comment on above: Expected: 11/11/2023, Expires: Start: 11-11-2023 End: 02-10-2024 PT panel - Platelet poor plasma by Coagulation assay PROTHROMBIN TIME Lab Routine NAFLD (nonalcoholic fatty liver disease) Expected: 11/11/2023, Expires: 02/10/2024 [facility] Comment on above: Expected: 11/11/2023, Expires: 4 Start: 10-22-2023 End: 01-21-2024 Comprehensive metabolic 2000 panel - Serum or Plasma COMPREHENSIVE METABOLIC PANEL Lab Routine NAFLD (nonalcoholic fatty liver disease) Expected: 10/22/2023, Expires: 01/21/2024 [facility] Work Phone: Comment on above: Expected: 10/22/2023, Expires: 4 Start: 10-22-2023 End: 01-21-2024 Hepatitis B virus surface Ab [Presence] in Serum HEPATITIS B SURFACE ANTIBODY Lab Routine NAFLD (nonalcoholic fatty liver disease) Expected: 10/22/2023, Expires: 01/21/2024 [facility] Comment on above: Expected: 10/22/2023, Expires: 4 Start: 10-22-2023 End: 01-21-2024 LIVER FIBROSIS AND ACTIVITY LIVER FIBROSIS AND ACTIVITY Lab Routine NAFLD (nonalcoholic fatty liver disease) Expected: 10/22/2023, Expires: 01/21/2024 [facility] Comment on above: Expected: 10/22/2023, Expires: 4 Start: 10-22-2023 End: 01-21-2024 Smooth muscle Ab [Presence] in Serum SMOOTH MUSCLE AB SCR Lab Routine NAFLD (nonalcoholic fatty liver disease) Expected: 10/22/2023, Expires: 01/21/2024 [facility] Comment on above: Expected: 10/22/2023, Expires: 4 Start: 07-17-2023 CHLAMYDIA SCREENING (18) CHLAMYDIA SCREENING (18) [facility] Start: 07-17-2023 GC (GONORRHEA) SCREENING () GC (GONORRHEA) SCREENING () [facility] Start: 06-11-2023 Hepatitis B surface antibody level LDL Cholesterol [facility] Start: 04-22-2023 End: 07-22-2023 Hepatic function 2000 panel - Serum or Plasma [facility] Work Phone: Comment on above: Expected: 04/22/2023, Expires: 4 Start: 04-09-2023 End: 06-09-2023 Choriogonadotropin.beta subunit [Units/volume] in Serum or Plasma [facility] Work Phone: Comment on above: Expected: 04/09/2023, Expires: 3 Start: 04-09-2023 End: 06-09-2023 Estradiol (E2) [Mass/volume] in Serum or Plasma [facility] Work Phone: Comment on above: Expected: 04/09/2023, Expires: 3 Start: 04-09-2023 End: 06-09-2023 Follitropin [Units/volume] in Serum or Plasma [facility] Work Phone: Comment on above: Expected: 04/09/2023, Expires: 3 Start: 04-09-2023 End: 06-09-2023 Prolactin [Mass/volume] in Serum or Plasma [facility] Work Phone: Comment on above: Expected: 04/09/2023, Expires: 3 Start: 04-09-2023 End: 06-09-2023 Thyrotropin [Units/volume] in Serum or Plasma [facility] Work Phone: Comment on above: Expected: 04/09/2023, Expires: 3 Start: 02-28-2023 Influenza vaccination [facility] Start: 02-27-2023 CHLAMYDIA SCREENING (18-24) CHLAMYDIA SCREENING (18-24) [facility] Start: 02-27-2023 GC (GONORRHEA) SCREENING (18-24) GC (GONORRHEA) SCREENING (18-24) [facility] Start: 11-04-2022 End: 11-18-2022 Influenza virus A and B RNA and SARS-CoV-2 (COVID-19) N gene panel - Respiratory specimen by EDMOND with probe detection [facility] Work Phone: Comment on above: Expected: 11/04/2022, Expires: 3 Start: 10-30-2022 End: 10-30-2023 Cta hrt cornry art/bypass grfts contrst 3d post CTA CORONARY W IVCON Radiology Routine Precordial pain Expected: 10/30/2022, Expires: 10/30/2023 [facility] Work Phone: Comment on above: Expected: 10/30/2022, Expires: 4 Start: 10-28-2022 End: 12-28-2022 HIV 1+2 Ab [Presence] in Serum or Plasma by Immunoassay HIV 1 2 COMBO(AG/AB),WITH REFLEX TO DIFFERENTIATION Lab Routine Screening for HIV (human immunodeficiency virus) Expected: 10/28/2022, Expires: 12/28/2022 [facility] Work Phone: Comment on above: Expected: 10/28/2022, Expires: 3 Start: 10-07-2022 End: 10-01-2023 Echocardiography ECHO Cardiology Routine Precordial pain Expected: 10/07/2022, Expires: 10/01/2023 [facility] Work Phone: Comment on above: Expected: 10/07/2022, Expires: 4 Start: 10-03-2022 End: 12-03-2022 Alanine aminotransferase [Enzymatic activity/volume] in Serum or Plasma ALT/SGPT Lab Routine Abnormal laboratory test Expected: 10/03/2022 (Approximate), Expires: 12/03/2022 [facility] Work Phone: Comment on above: Expected: 10/03/2022 (Approximate), Expi res: 12/03/2022 Start: 10-03-2022 End: 12-03-2022 Aspartate aminotransferase [Enzymatic activity/volume] in Serum or Plasma AST/SGOT BLD Lab Routine Abnormal laboratory test Expected: 10/03/2022 (Approximate), Expires: 12/03/2022 [facility] Work Phone: Comment on above: Expected: 10/03/2022 (Approximate), Expi res: 12/03/2022 Start: 08-22-2022 End: 10-22-2022 FISH FOR BCR/ABL1 [facility] Work Phone: Comment on above: Expected: 08/22/2022, Expires: 3 Start: 08-22-2022 End: 10-22-2022 FLOW CYTOMETRY PERIPHERAL BLOOD LEUK/LYMPH (FCLEUK) [facility] Work Phone: Comment on above: Expected: 08/22/2022, Expires: 3 Start: 08-22-2022 End: 10-22-2022 MYELOPROLIFERATIVE NEOPLASM PANEL BLOOD [facility] Work Phone: Comment on above: Expected: 08/22/2022, Expires: 3 Start: 08-21-2022 CHLAMYDIA SCREENING (18-24) CHLAMYDIA SCREENING (18-24) [facility] Start: 08-21-2022 GC (GONORRHEA) SCREENING (18-24) GC (GONORRHEA) SCREENING (18-24) [facility] Start: 08-07-2022 End: 10-07-2022 25-hydroxyvitamin D3 [Mass/volume] in Serum or Plasma [facility] Work Phone: Comment on above: Expected: 08/07/2022, Expires: 3 Start: 08-07-2022 End: 10-07-2022 CBC W Auto Differential panel - Blood [facility] Work Phone: Comment on above: Expected: 08/07/2022, Expires: 3 Start: 08-07-2022 End: 10-07-2022 Cobalamin (Vitamin B12) [Mass/volume] in Serum or Plasma [facility] Work Phone: Comment on above: Expected: 08/07/2022, Expires: 3 Start: 08-07-2022 End: 10-07-2022 Hepatic function 2000 panel - Serum or Plasma [facility] Work Phone: Comment on above: Expected: 08/07/2022, Expires: 3 Start: 08-07-2022 End: 10-07-2022 Iron and Iron binding capacity panel - Serum or Plasma [facility] Work Phone: Comment on above: Expected: 08/07/2022, Expires: 3 Start: 08-07-2022 End: 10-07-2022 Thyrotropin [Units/volume] in Serum or Plasma [facility] Work Phone: Comment on above: Expected: 08/07/2022, Expires: 3 Start: 06-11-2022 End: 08-11-2022 Alpha 1 antitrypsin [Mass/volume] in Serum or Plasma [id number] BL Lab Routine Fatty liver Elevated LFTs Expected: 06/11/2022, Expires: 08/11/2022 [facility] Work Phone: Comment on above: Expected: 06/11/2022, Expires: 3 Start: 06-11-2022 End: 08-11-2022 Ceruloplasmin [Mass/volume] in Serum or Plasma CERULOPLASMIN BLD Lab Routine Fatty liver Elevated LFTs Expected: 06/11/2022, Expires: 08/11/2022 [facility] Work Phone: Comment on above: Expected: 06/11/2022, Expires: 3 Start: 06-11-2022 End: 08-11-2022 Ferritin [Mass/volume] in Serum or Plasma FERRITIN BLD Lab Routine Fatty liver Elevated LFTs Expected: 06/11/2022, Expires: 08/11/2022 [facility] Work Phone: Comment on above: Expected: 06/11/2022, Expires: 3 Start: 06-11-2022 End: 08-11-2022 Hemoglobin A1c in Blood HGB A1C Lab Routine Fatty liver Elevated LFTs Expected: 06/11/2022, Expires: 08/11/2022 [facility] Work Phone: Comment on above: Expected: 06/11/2022, Expires: 3 Start: 06-11-2022 End: 08-11-2022 HEPATITIS A ANTIBODY, IGG HEPATITIS A ANTIBODY, IGG Lab Routine Fatty liver Elevated LFTs Expected: 06/11/2022, Expires: 08/11/2022 [facility] Work Phone: Comment on above: Expected: 06/11/2022, Expires: 3 Start: 06-11-2022 End: 08-11-2022 Hepatitis B virus core Ab [Presence] in Serum HEP B CORE AB TOTAL Lab Routine Fatty liver Elevated LFTs Expected: 06/11/2022, Expires: 08/11/2022 [facility] Work Phone: Comment on above: Expected: 06/11/2022, Expires: 3 Start: 06-11-2022 End: 08-11-2022 Hepatitis B virus surface Ag [Presence] in Serum HEP B SURF AG SCRN Lab Routine Fatty liver Elevated LFTs Expected: 06/11/2022, Expires: 08/11/2022 [facility] Work Phone: Comment on above: Expected: 06/11/2022, Expires: 3 Start: 06-11-2022 End: 08-11-2022 Hepatitis C virus Ab [Presence] in Serum HEP C AB IA W/CONF SCRN Lab Routine Fatty liver Elevated LFTs Expected: 06/11/2022, Expires: 08/11/2022 [facility] Work Phone: Comment on above: Expected: 06/11/2022, Expires: 3 Start: 06-11-2022 End: 08-11-2022 Lipid 1996 panel - Serum or Plasma LIPID PANEL BASIC Lab Routine Fatty liver Elevated LFTs Expected: 06/11/2022, Expires: 08/11/2022 [facility] Work Phone: Comment on above: Expected: 06/11/2022, Expires: 3 Start: 06-11-2022 End: 08-11-2022 LIVER FIBROSIS AND ACTIVITY LIVER FIBROSIS AND ACTIVITY Lab Routine Fatty liver Elevated LFTs Expected: 06/11/2022, Expires: 08/11/2022 [facility] Work Phone: Comment on above: Expected: 06/11/2022, Expires: 3 Start: 06-11-2022 End: 08-11-2022 Mitochondria Ab [Presence] in Serum by Immunofluorescence MITOCHONDRIAL M2 IGG SERUM Lab Routine Fatty liver Elevated LFTs Expected: 06/11/2022, Expires: 08/11/2022 [facility] Work Phone: Comment on above: Expected: 06/11/2022, Expires: 3 Start: 06-11-2022 End: 08-11-2022 Smooth muscle Ab [Presence] in Serum SMOOTH MUSCLE AB SCR Lab Routine Fatty liver Elevated LFTs Expected: 06/11/2022, Expires: 08/11/2022 [facility] [facility] Work [facility]: Comment on above: Expected: 06/11/2022, Expires: Start: 04-12-2022 End: 06-12-2022 Alanine aminotransferase [Enzymatic activity/volume] in Serum or Plasma ALT/SGPT Lab Routine Abnormal laboratory test Expected: 04/12/2022 (Approximate), Expires: 06/12/2022 [facility] Work Phone: Comment on above: Expected: 04/12/2022 (Approximate), Expi res: 06/12/2022 Start: 04-12-2022 End: 06-12-2022 Aspartate aminotransferase [Enzymatic activity/volume] in Serum or Plasma AST/SGOT BLD Lab Routine Abnormal laboratory test Expected: 04/12/2022 (Approximate), Expires: 06/12/2022 [facility] Work Phone: Comment on above: Expected: 04/12/2022 (Approximate), Expi res: 06/12/2022 Start: 04-12-2022 End: 06-12-2022 Erythrocyte sedimentation rate SED RATE WESTERGREN Lab Routine Abnormal laboratory test Expected: 04/12/2022 (Approximate), Expires: 06/12/2022 [facility] Work Phone: Comment on above: Expected: 04/12/2022 (Approximate), Expi res: 06/12/2022 Start: 04-11-2022 Plain chest X-ray Chest CT and [facility] Work Phone: Start: 04-11-2022 XR Chest PA and Lateral [facility] Work Phone: Start: 04-09-2022 Meningococcal B Vaccine: Consider Based On Risk (2 of 2 - Risk Bexsero 2-dose series) Meningococcal B Vaccine: Consider Based On Risk (2 of 2 - Risk Bexsero 2-dose series) [facility] Start: 04-09-2022 MENINGOCOCCAL B: Consider based on risk (2 of 2 - Risk Bexsero 2-dose series) MENINGOCOCCAL B: Consider based on risk (2 of 2 - Risk Bexsero 2-dose series) [facility] Start: 02-28-2022 Influenza vaccination [facility] Start: 03-20-2020 Urine microalbumin profile [place] [facility] Start: 09-09-2019 Adult depression screening assessment DEPRESSION SCREENING [facility] Start: 2016 HEPATITIS C SCREENING HEPATITIS C SCREENING [facility] Start: 2016 HIV SCREENING HIV SCREENING [facility] Start: 07-04-2016 Glaucoma screening Dilated Retinal Exam [facility] Start: 2012 PEDS TO ADULT TRANSITION ANNUAL ASSESSMENT PEDS TO ADULT TRANSITION ANNUAL ASSESSMENT [facility] Start: 2010 PEDS TO ADULT TRANSITION INITIAL DISCUSSION PEDS TO ADULT TRANSITION INITIAL DISCUSSION [facility] Start: 2008 Diabetic foot examination Diabetic Foot Exam [facility] Start: 2008 Hepatitis B screening Urine Albumin:Creatinine Ratio [facility] Start: 2008 MENINGOCOCCAL B: Consider based on risk (1 of 2 - Risk Bexsero 2-dose series) MENINGOCOCCAL B: Consider based on risk (1 of 2 - Risk Bexsero 2-dose series) [facility] Start: 2004 PNEUMOCOCCAL (1 - PCV) PNEUMOCOCCAL (1 - PCV) [facility] Start: 2004 Pneumococcal vaccination Pneumococcal Vaccine (1 of 2 - PCV) [facility] Start: 12-31-2003 COVID-19 VACCINE (#1) COVID-19 VACCINE (#1) [facility] Start: 12-31-2003 COVID-19 VACCINE (1) COVID-19 VACCINE (1) [facility] Start: 07-02-1999 COVID-19 VACCINE (#1) COVID-19 VACCINE (#1) [facility] Start: 07-02-1999 HEPATITIS B (4 of 4 - 4-dose series) HEPATITIS B (4 of 4 - 4-dose series) [facility] Bacteria identified in Urine by Culture URINE CULTURE Microbiology Routine Abnormal urination Ordered: 02/27/2022 [facility] Work Phone: Comment on above: Ordered: 02/27/2022 Bacteria identified in Urine by Culture URINE CULTURE Microbiology Routine Dysuria 08/11/2023 11:04 AM EST [facility] Work Phone: Bacteria identified in Urine by Culture URINE CULTURE Microbiology Routine Urinary frequency 04/30/2024 1:48 PM EDT [facility] BACTERIAL VAGINOSIS AMPLIFICATION BACTERIAL VAGINOSIS AMPLIFICATION Lab Routine Acute vaginitis Ordered: 02/27/2022 [facility] Work Phone: Comment on above: Ordered: 02/27/2022 BACTERIAL VAGINOSIS NAAT BACTERI AL VAGINOSIS NAAT Lab Routine Vaginal discharge Ordered: 01/10/2023 [facility] Work Phone: Comment on above: Ordered: 01/10/2023 BACTERIAL VAGINOSIS NAAT BACTERI AL VAGINOSIS NAAT Lab Routine Vaginal odor 05/14/2023 11:51 AM EST [facility] Work Phone: BACTERIAL VAGINOSIS NAAT BACTERI AL VAGINOSIS NAAT Lab Routine Vaginal discharge Vaginal itching 09/11/2023 10:29 AM EDT [facility] Work Phone: BACTERIAL VAGINOSIS NAAT BACTERI AL VAGINOSIS NAAT Lab Routine Vaginal itching 12/12/2023 1:08 PM EDT [facility] BACTERIAL VAGINOSIS NAAT BACTERI AL VAGINOSIS NAAT Lab Routine Vaginal discharge 02/10/2024 3:20 PM EDT [facility] Work Phone: BACTERIAL VAGINOSIS NAAT BACTERI AL VAGINOSIS NAAT Lab Routine Vaginal discharge 05/12/2024 4:21 PM EST [facility] Work Phone: BACTERIAL VAGINOSIS NAAT BACTERI AL VAGINOSIS NAAT Lab Routine Vulvar itching 10/11/2024 10:59 AM EDT [facility] Biopsy liver needle percutaneous IMAGING GUIDED BIOPSY LIVER Radiology Routine Fatty liver Elevated LFTs Ordered: 06/13/2022 [facility] Work Phone: Comment on above: Ordered: 06/13/2022 Biopsy vulva/perineu m 1 lesion spx BIOPSY OF VULVA Procedures Routine Vulvar irritation Ordered: 09/27/2024 [facility] Work Phone: Comment on above: Ordered: 09/27/2024 Calprotectin [Mass/m ass] in Stool CALPROTECTIN,FECAL Lab Routine Diarrhea, unspecified type Ordered: 10/22/2023 [facility] Comment on above: Ordered: 10/22/2023 YEIMY / TRICHOMONA S AMPLIFICATION YEIMY / TRICHOMONAS AMPLIFICATION Microbiology Routine Acute vaginitis Ordered: 02/27/2022 [facility] Work Phone: Comment on above: Ordered: 02/27/2022 YEIMY/TRICHOMONAS NAAT YEIMY /TRICHOMONAS NAAT Microbiology Routine Vaginal discharge Ordered: 01/10/2023 [facility] Work Phone: Comment on above: Ordered: 01/10/2023 YEIMY/TRICHOMONAS NAAT YEIMY /TRICHOMONAS NAAT Lab Routine Vaginal odor 05/14/2023 11:51 AM [facility] Work Phone: YEIMY/TRICHOMONAS NAAT YEIMY /TRICHOMONAS NAAT Lab Routine Vaginal discharge Vaginal itching 09/11/2023 10:29 AM T [facility] Work Phone: YEIMY/TRICHOMONAS NAAT YEIMY /TRICHOMONAS NAAT Lab Routine Vaginal itching 12/12/2023 1:08 PM T [facility] Work Phone: YEIMY/TRICHOMONAS NAAT YEIMY /TRICHOMONAS NAAT Lab Routine Vaginal discharge 02/10/2024 3:20 PM [facility] YEIMY/TRICHOMONAS NAAT YEIMY /TRICHOMONAS NAAT Lab Routine Vaginal discharge 05/12/2024 4:21 PM [facility] YEIMY/TRICHOMONAS NAAT YEIMY /TRICHOMONAS NAAT Lab Routine Vulvar itching 10/11/2024 10:59 AM [facility] End: 01-13-2024 CBC W Auto Differential panel - Blood CBC + DIFF Lab Routine Leukocytosis, unspecified type Thrombocytosis Every 6 months for 2 Occurrences starting 01/13/2023 until 01/13/2024 [facility] Work Phone: Comment on above: Every 6 months for 2 Occurrences startin g 01/13/2023 until 01/13/2024 Chlamydia trachomatis+Neisseria gonorrhoeae DNA [Presence] in Unspecified specimen by EDMOND with probe detection GC/CHLAMYDIA DNA DET Lab Routine Acute vaginitis Ordered: 02/27/2022 [facility] Work Phone: Comment on above: Ordered: 02/27/2022 Chlamydia trachomatis+Neisseria gonorrhoeae DNA [Presence] in Unspecified specimen by EDMOND with probe detection GONORRHEA/CHLAMYDIA NAAT Lab Routine Vaginal discharge Ordered: 01/10/2023 [facility] Work Phone: Comment on above: Ordered: 01/10/2023 Chlamydia trachomatis+Neisseria gonorrhoeae DNA [Presence] in Unspecified specimen by EDMOND with probe detection GONORRHEA/CHLAMYDIA NAAT Lab Routine Vaginal odor 05/14/2023 11:51 AM [facility] Work Phone: Chlamydia trachomatis+Neisseria gonorrhoeae DNA [Presence] in Unspecified specimen by EDMOND with probe detection GONORRHEA/CHLAMYDIA NAAT Lab Routine Vaginal itching Vaginal odor 08/11/2023 11:04 AM [facility] Work Phone: Clostridioides diffi cile toxin genes [Presence] in Stool by EDMOND with probe detection C. DIFFICILE PCR Lab Routine Diarrhea, unspecified type Ordered: 10/22/2023 [facility] Comment on above: Ordered: 10/22/2023 End: 01-13-2024 Cobalamin (Vitamin B12) [Mass/volume] in Serum or Plasma VITAMIN B12 BLOOD Lab Routine Leukocytosis, unspecified type Thrombocytosis Every 6 months for 2 Occurrences starting 01/13/2023 until 01/13/2024 [facility] Work Phone: Comment on above: Every 6 months for 2 Occurrences startin g 01/13/2023 until 01/13/2024 DDI VIBRATION CONTRO LLED TRANSIENT ELASTOGRAPHY (VCTE) DDI VIBRATION CONTROLLED TRANSIENT ELASTOGRAPHY (VCTE) Procedures Routine Abnormal laboratory test Fatty liver Ordered: 05/07/2022 [facility] Work Phone: Comment on above: Ordered: 05/07/2022 ECG COMPLETE ECG COMPLETE ECG 08/30/2024 1:24 PM [facility] End: 01-03-2026 Echocardiography ECHO Cardiology Routine Palpitations 1 Occurrences starting 01/03/2025 until 01/03/2026 [facility] Work Phone: Comment on above: 1 Occurrences starting 01/03/2025 until 01/03/2026 End: 01-13-2024 Erythrocyte sedimentation rate SED RATE WESTERGREN Lab Routine Leukocytosis, unspecified type Thrombocytosis Every 6 months for 2 Occurrences starting 01/13/2023 until 01/13/2024 [facility] Work Phone: Comment on above: Every 6 months for 2 Occurrences startin g 01/13/2023 until 01/13/2024 End: 01-13-2024 Ferritin [Mass/volume] in Serum or Plasma FERRITIN BLD Lab Routine Leukocytosis, unspecified type Thrombocytosis Every 6 months for 2 Occurrences starting 01/13/2023 until 01/13/2024 [facility] Work Phone: Comment on above: Every 6 months for 2 Occurrences startin g 01/13/2023 until 01/13/2024 Gastrointestinal pat hogens panel - Stool by EDMOND with probe detection EXPANDED STOOL GASTROINTESTINAL PANEL BY PCR Lab Routine Diarrhea, unspecified type Ordered: 10/22/2023 [facility] Comment on above: Ordered: 10/22/2023 Helicobacter pylori Ag [Presence] in Stool by Immunoassay HELICOBACTER PYLORI ANTIGEN BY EIA, STOOL Microbiology Routine Diarrhea, unspecified type Ordered: 10/22/2023 [facility] Comment on above: Ordered: 10/22/2023 End: 06-06-2023 Hepatobil syst imag inc gb w/pharma intervenj NM HEPATOBILIARY W EF AND/OR RX Radiology Routine Nausea 1 Occurrences starting 05/07/2022 until 06/06/2023 [facility] Work Phone: Comment on above: 1 Occurrences starting 05/07/2022 until 06/06/2023 End: 01-13-2024 Iron and Iron binding capacity panel - Serum or Plasma IRON + TIBC Lab Routine Leukocytosis, unspecified type Thrombocytosis Every 6 months for 2 Occurrences starting 01/13/2023 until 01/13/2024 [facility] Work Phone: Comment on above: Every 6 months for 2 Occurrences startin g 01/13/2023 until 01/13/2024 MENINGOCOCCAL B VACC INE (BEXSERO) MENINGOCOCCAL B VACCINE (BEXSERO) Immunization/Injection Routine Encounter for immunization 1 Occurrences starting 10/28/2022 [facility] Work Phone: Comment on above: 1 Occurrences starting 10/28/2022 OUTSIDE VENDOR CARDI AC OUTPATIENT EXTENDED RHYTHM RECORDING (WITHOUT TELEMETRY) OUTSIDE VENDOR CARDIAC OUTPATIENT EXTENDED RHYTHM RECORDING (WITHOUT TELEMETRY) Holter Routine Precordial pain Ordered: 09/30/2022 [facility] Work Phone: Comment on above: Ordered: 09/30/2022 PANC ELASTASE, FECAL PANC ELASTA SE, FECAL Lab Routine Diarrhea, unspecified type Ordered: 10/22/2023 [facility] Comment on above: Ordered: 10/22/2023 End: 12-08-2023 PAP TITRATION PSG (CPAP, BIPAP, ASV) PAP TITRATION PSG (CPAP, BIPAP, ASV) Procedures Routine ESTEBAN (obstructive sleep apnea) 1 Occurrences starting 11/08/2022 until 12/08/2023 [facility] Work Phone: Comment on above: 1 Occurrences starting 11/08/2022 until 12/08/2023 Patient Education [facility] Work Phone: Patient referral [facility] Work Phone: [employer] COVI D-19 BIVALENT VACCINE, AGE 12+ YR PFI[employer]ER-BIONTR[employer] COVID-19 BIVALENT VACCINE, AGE 12+ YR Immunization/Injection Routine Encounter for immunization 1 Occurrences starting 10/28/2022 [facility] Work Phone: Comment on above: 1 Occurrences starting 10/28/2022 End: 09-06-2023 Polysomnogram POLYSOMNOGRAM (PSG) Procedures Routine Malaise and fatigue Snoring Suspected sleep apnea Chronic fatigue 1 Occurrences starting 09/06/2022 until 09/06/2023 [facility] Work Phone: Comment on above: 1 Occurrences starting 09/06/2022 until 09/06/2023 Removal impacted cer umen irrigation/lvg unilat AMBULATORY EAR LAVAGE/IRRIGATION Procedures Routine Impacted cerumen of right ear Ordered: 12/15/2023 [facility] Work Phone: Comment on above: Ordered: 12/15/2023 End: 11-27-2023 SPIROMETRY WITH DILATOR IF OBSTRUCTED SPIROMETRY WITH DILATOR IF OBSTRUCTED PFT Routine SOBOE (shortness of breath on exertion) 1 Occurrences starting 10/28/2022 until 11/27/2023 [facility] Work Phone: Comment on above: 1 Occurrences starting 10/28/2022 until 11/27/2023 SURGICAL PATHOLOGY SURGICAL PATH OLOGY Lab Routine 07/05/2022 11:06 AM EST [facility] Work Phone: Tdap vaccine 7 yrs/> im TDAP VAC CINE, AGE 7+ YR (ADACEL, BOOSTRIX) Immunization/Injection Routine Encounter for immunization 1 Occurrences starting 10/28/2022 [facility] Work Phone: Comment on above: 1 Occurrences starting 10/28/2022 TESTOSTERONE, FREE A ND TOTAL TESTOSTERONE, FREE AND TOTAL Lab Routine Amenorrhea 01/23/2024 12:12 PM EDT [facility] Tissue Pathology bio psy report SURGICAL PATHOLOGY Lab Routine Vulvar itching 10/11/2024 10:59 AM EDT [facility] Work Phone: UA DIP B/O UA DIP B/O Lab R outine Urinary frequency Ordered: 04/30/2024 [facility] Work Phone: Comment on above: Ordered: 04/30/2024 Urine test visual color cmprsn meths HCG QUAL UR B/O Lab Routine Irregular periods Ordered: 02/27/2022 [facility] Work Phone: Comment on above: Ordered: 02/27/2022 End: 05-21-2024 US ABD RIGHT UPPER QUADRANT US ABD RIGHT UPPER QUADRANT Radiology Routine Fatty liver Elevated LFTs 1 Occurrences starting 04/22/2023 until 05/21/2024 [facility] Work Phone: Comment on above: 1 Occurrences starting 04/22/2023 until 05/21/2024 End: 05-18-2023 Us abdominal real time w/image limited US ABD RT UPPER QUADRANT Radiology Routine Abnormal laboratory test Malaise and fatigue Diarrhea, unspecified type Abdominal pain, unspecified abdominal location 1 Occurrences starting 04/18/2022 until 05/18/2023 [facility] Work Phone: Comment on above: 1 Occurrences starting 04/18/2022 until 05/18/2023 End: 05-10-2024 Us transvaginal US FEMALE PELVIS TRANSVAG Radiology Routine Secondary amenorrhea 1 Occurrences starting 04/09/2023 until 05/10/2024 [facility] Work Phone: Comment on above: 1 Occurrences starting 04/09/2023 until 05/10/2024 [facility] Immunizations Immunization Date Immunization Notes Care Provider Fa [facility] 08-09-2024 tetanus toxoid, redu huy diphtheria toxoid, and acellular pertussis vaccine, adsorbed Kate Silva MD Work Phone: [facility] 03-19-2024 influenza, seasonal, injectable Sher Darrick WARP SCOURING VAT TENDER.CRIBBER Work Phone: [facility] 03-19-2024 pneumococcal conjuga te (PCV20) vaccine, 20 valent (PREVNAR 20) Sher Darrick WARP SCOURING VAT TENDER.CRIBBER Work Phone: [facility] 03-19-2024 pneumococcal Conjuga te, unspecified formulation Sher Darrick WARP SCOURING VAT TENDER.CRIBBER Work Phone: [facility] 03-19-2024 influenza virus vacc ine, unspecified formulation Estrellita Kumar WARP SCOURING VAT TENDER.CRIBBER Work Phone: [facility] 06-06-2023 influenza, injectabl e, quadrivalent, contains preservative Kate Silva MD Work Phone: [facility] 06-06-2023 influenza virus vacc ine, unspecified formulation Estrellita Molina PA-C Work Phone: [facility] 10-28-2022 hepatitis B vaccine, adult dosage 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 W[employer]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 Work Phone: [facility] Work Phone: 03-12-2022 influenza, injectabl e, quadrivalent, contains preservative Antonio Smalls MD Work Phone: [facility] 03-12-2022 meningococcal B vacc ine, recombinant, OMV, adjuvanted Antonio Smalls MD Work Phone: [facility] 03-12-2022 influenza virus vacc ine, unspecified formulation Sher Hollingsworth WARP SCOURING VAT TENDER.CRIBBER Work Phone: [facility] 04-13-2019 influenza, injectabl e, quadrivalent, preservative free Antonio Smalls MD Work Phone: [facility] 03-25-2018 influenza, injectabl e, quadrivalent, contains preservative Antonio Smalls MD Work Phone: [facility] Work Phone: 09-16-2017 influenza, injectabl e, quadrivalent, contains preservative Antonio Smalls MD Work Phone: [facility] Work Phone: 07-02-2016 influenza, injectabl e, quadrivalent, preservative free Antonio Smalls MD Work Phone: [facility] Work Phone: 01-23-2016 poliovirus vaccine, inactivated Antonio Smalls MD Work Phone: [facility] 05-04-2015 influenza, injectabl e, quadrivalent, contains preservative Antonio Smalls MD Work Phone: [facility] Work Phone: 05-04-2015 meningococcal polysaccharide (groups A, C, Y and W-135) diphtheria toxoid conjugate vaccine (MCV4P) Antonio Smalls MD Work Phone: [facility] Work Phone: 04-08-2014 influenza, live, intranasal, quadrivalent Antonio Smalls MD Work Phone: [facility] Work Phone: 01-14-2014 human papilloma viru s vaccine, quadrivalent Antonio Smalls MD Work Phone: [facility] 09-24-2013 hepatitis A vaccine, pediatric/adolescent dosage, 2 dose schedule Antonio Smalls MD Work Phone: [facility] 09-24-2013 human papilloma viru s vaccine, quadrivalent Antonio Smalls MD Work Phone: [facility] 02-11-2012 hepatitis A vaccine, unspecified formulation Antonio Smalls MD Work Phone: [facility] 02-11-2012 human papilloma viru s vaccine, quadrivalent Antonio Smalls MD Work Phone: [facility] 02-11-2012 varicella virus vaccine Tom Smalls MD Work Phone: [facility] 03-20-2010 Meningococcal, MCV4, unspecified conjugate formulation(groups A, C, Y and W-135) Antonio Smalls MD Work Phone: [facility] 03-20-2010 tetanus toxoid, redu huy diphtheria toxoid, and acellular pertussis vaccine, adsorbed Antonio Smalls MD Work Phone: [facility] 03-14-2004 diphtheria, tetanus toxoids and acellular pertussis vaccine Antonio Smalls MD Work Phone: [facility] Work Phone: 03-14-2004 measles, mumps and rubella virus vaccine Antonio Smalls MD Work Phone: [facility] Work Phone: 04-04-2000 diphtheria, tetanus toxoids and acellular pertussis vaccine Antonio Smalls MD Work Phone: [facility] Work Phone: 04-04-2000 haemophilus influenz ae type b vaccine, HbOC conjugate Antonio Smalls MD Work Phone: [facility] Work Phone: 04-04-2000 hepatitis B vaccine, pediatric or pediatric/adolescent dosage Sher Hollingsworth APRN.CRIBBER Work Phone: [facility] 04-04-2000 measles, mumps and rubella virus vaccine Antonio Smalls MD Work Phone: [facility] Work Phone: 04-04-2000 poliovirus vaccine, inactivated Antonio Smalls MD Work Phone: [facility] Work Phone: 12-14-1999 varicella virus vaccine Tom Smalls MD Work Phone: [facility] Work Phone: 11-13-1999 poliovirus vaccine, inactivated Antonio Smalls MD Work Phone: [facility] Work Phone: 07-02-1999 diphtheria, tetanus toxoids and acellular pertussis vaccine Antonio Smalls MD Work Phone: [facility] Work Phone: 07-02-1999 haemophilus influenz ae type b vaccine, HbOC conjugate Antonio Smalls MD Work Phone: [facility] Work Phone: 07-02-1999 hepatitis B vaccine, pediatric or pediatric/adolescent dosage Sher Hollingsworth APRN.CRIBBER Work Phone: [facility] 07-02-1999 poliovirus vaccine, inactivated Antonio Smalls MD Work Phone: [facility] Work Phone: 04-30-1999 diphtheria, tetanus toxoids and acellular pertussis vaccine Antonio Smalls MD Work Phone: [facility] Work Phone: 04-30-1999 haemophilus influenz ae type b vaccine, HbOC conjugate Antonio Smalls MD Work Phone: [facility] Work Phone: 04-30-1999 hepatitis B vaccine, pediatric or pediatric/adolescent dosage Antonio Smalls MD Work Phone: [facility] Work Phone: 04-30-1999 poliovirus vaccine, inactivated Antonio Smalls MD Work Phone: [facility] Work Phone: 04-30-1999 hepatitis B vaccine, unspecified formulation Kera Joseph WARP SCOURING VAT TENDER.CRIBBER Work Phone: [facility] 03-06-1999 diphtheria, tetanus toxoids and acellular pertussis vaccine Antonio Smalls MD Work Phone: [facility] Work Phone: 03-06-1999 haemophilus influenz ae type b conjugate and Hepatitis B vaccine Sher Hollingsworth WARP SCOURING VAT TENDER.CRIBBER Work Phone: [facility] 03-06-1999 haemophilus influenz ae type b vaccine, HbOC conjugate Antonio Smalls MD Work Phone: [facility] Work Phone: 03-06-1999 hepatitis B vaccine, pediatric or pediatric/adolescent dosage Antonio Smalls MD Work Phone: [facility] Work Phone: 03-06-1999 poliovirus vaccine, inactivated Antonio Smalls MD Work Phone: [facility] Work Phone: 01-01-1999 hepatitis B vaccine, pediatric or pediatric/adolescent dosage Antonio Smalls MD Work Phone: [facility] Work Phone: Payers Date Payer Category Payer Self-pay [id number] 2021 Worker's Compensation [id number] 2015 Medicaid [id number] 2015 Medicaid [facility] MEDICAID [id number] 2015-Present [phone] [address] [place] [address] Medicaid [id number] 2015 Medicaid [id number] 2015 Medicaid [id number] 1998 Unknown [id number] 27 Unknown [id number] 62 Unknown [id number] 62 Unknown [id number] 62 Unknown [id number] 62 Unknown [id number] 62 Unknown [id number] 62 Unknown [id number] 62 Unknown [id number] 62 Social History Date Type Detail Facility Start: 12-05-2020 End: 02-20-2022 Tobacco smoking status NHIS Occasional tobacco smoker [facility] Start: 12-05-2020 End: 03-02-2024 Tobacco use and exposure Smokeless tobacco non-user [facility] Start: 07-12-2021 End: 09-11-2021 Alcohol intake Current drinker of alcohol (finding) [facility] Start: 12-05-2020 History SDOH Alcohol Comment occasional [facility] Start: 2000 Sex Assigned At Female C Holzer [facility] Start: 09-01-2021 End: 05-30-2022 Exposure to SARS-CoV-2 (event) Not sure [facility] Start: 12-25-2021 End: 01-04-2022 Exposure to SARS-CoV-2 (event) Unable to assess [facility] Start: 01-26-2022 End: 04-11-2022 Tobacco smoking status NHIS Unknown if ever smoked [facility] Work Phone: Start: 11-13-2020 Cigarettes [facility] Start: 05-07-2022 End: 03-02-2024 Tobacco smoking status NHIS Ex-smoker [facility] End: 06-30-2021 History of tobacco use Current smoker [facility] End: 06-30-2021 History of tobacco use Cigarette Smoker [facility] Start: 05-07-2022 End: 02-09-2025 Alcohol intake Ex-drinker (finding) [facility] Start: 08-22-2022 Tobacco Comment Pt smoked 3 ci garettes daily x 2 months, quit 2021 [facility] Start: 11-08-2022 End: 12-24-2022 History of Social function [facility] Start: 11-08-2022 End: 12-24-2022 Tobacco use panel [facility] Start: 05-31-2012 Adult Depression Screening Assessment 0 [facility] Start: 11-28-2020 Gender identity Identifies as female gender (finding) [facility] Start: 11-28-2020 Sexual orientation Choose not to dis close [facility] Start: 08-11-2023 Tobacco Comment Pt smoked 3 ci garettes daily x 2 months, quit t vapes [facility] Do you belong to any clubs or organizations such as restoration groups, unions, fraternal or athletic groups, or school groups? No [facility] How often to you hav e a drink containing alcohol? Monthly or less [facility] How many standard dr inks containing alcohol do you have on a typical day? 1 or 2 [facility] How often do you hav e 6 or more drinks on 1 occasion? Never [facility] Do you feel stress - tense, restless, nervous, or anxious, or unable to sleep at night because your mind is troubled all the time - these days [OSQ] Only a little [facility] Start: 09-29-2024 End: 12-02-2024 Tobacco smoking status NHIS Current Light tobacco smoker [facility] Start: 09-29-2024 End: 10-25-2024 Sex Female (finding) [facility] Medical Equipment Procedure Code Equipment Code Equipment Origin al Text Equipment Identifier Dates Gas Io Ispan Vsn Sys 125gm Sf6 - [id number] Start: 05-12-2015 Comment on above: Description: SF6 22% IMPLANTED RIGHT EYE Test blood sugar(s) one times daily. Dx: Type 2 DM - Controlled E11.9 Insulin: No [id number] Start: 01-27-2024 Test blood sugar(s) one times daily. Dx: Type 2 DM - Controlled E11.9 Insulin: No [id number] Start: 01-27-2024 Test blood sugar(s) one times daily. Dx: Type 2 DM - Controlled E11.9 Insulin: No [id number] Start: 02-09-2025 Functional Status Date Assessment Result Facility 01-10-2015 Are you deaf, or do you have serious difficulty hearing No 01/10/2015 9:20 AM EDT Zelalem Robles Cma No [facility] 01-10-2015 Are you blind, or do you have serious difficulty seeing, even when wearing glasses No 01/10/2015 9:20 AM EDZelalem Aldridge Cma L No [facility] 01-10-2015 Do you have serious difficulty walking or climbing stairs No 01/10/2015 9:20 AM EDT Zelalem Robles Cma L No [facility] 01-10-2015 Do you have difficul ty dressing or bathing No 01/10/2015 9:20 AM EDT Zelalem Robles Cma L No [facility] 01-10-2015 Because of a physica l, mental, or emotional condition, do you have difficulty doing errands alone such as visiting a physician's office or shopping No 01/10/2015 9:20 AM EDT Zelalem Robles Cma L No [facility] Mental Status Date Assessment Result Facility 12-02-2024 Cognitive function Voice/Name [facility] Work Phone: 10-28-2024 Cognitive function Level Of Cons ciousness Awake;Alert;Appropriate;Fol lows Commands [facility] Work Phone: 10-25-2024 Cognitive function Voice/Name [facility] Work Phone: 10-06-2024 Cognitive function Level Of Cons ciousness Awake;Alert;Appropriate;Fol lows Commands [facility] Work Phone: 09-29-2024 Cognitive function Level Of Cons ciousness Awake;Alert;Appropriate;Fol lows Commands [facility] Work Phone: 04-11-2022 Cognitive function Voice/Name [facility] Work Phone: 01-10-2015 Because of a physica l, mental, or emotional condition, do you have serious difficulty concentrating, remembering, or making decisions Yes 01/10/2015 9:20 AM EDT Margaret JovanniZelalem Yes [facility] Clinical Notes 11-19-2012 to 04-25-2025 Telephone Encounter - Los Chamorro RN - 02/14/2025 2:18 PM EDTTelephone Encounter - Los Chamorro RN - 02/14/2025 2:18 PM EDTPatient Shannon Sykes HUC - 11/23/2024 9:56 AM EDT Note Date & Type Note Facility 04-25-2025 Note HNO ID: [id number] Author: SANTI MCALLISTER MD Service: ? Author Type: Physician Type: Progress Notes Filed: 04/25/2025 09:52 Note Text: Santi Mcallister MD General Cardiology [address] [place] [address] [phone] Chief Complaint Patient presents with: Recheck: 6 month follow up- c/o palpitations HISTORY OF PRESENT ILLNESS: Miss Forde is a 24-year-old female with a history of Marfan syndrome, presenting for evaluation and management of palpitations. The patient reports experiencing daily palpitations for the past two months, which are more noticeable when lying down. She describes the sensation as feeling like her heart stops beating at times. She has not taken any medication for these symptoms. She was diagnosed with severe anxiety and was prescribed propranolol for panic attacks but has not used it. She denies taking any supplements or vitamins. A 48-hour Holter monitor in 11/2024 showed a few supraventricular and ventricular ectopics, but no major arrhythmias, with a burden of 0.2%. She has a history of bilateral lens dislocation with subsequent lens replacement. An echocardiogram in 2022 showed the mid-ascending aorta measuring 3.2 cm and the distal ascending aorta measuring 2.[address] angiogram with contrast on 10/31/2022 demonstrated normal aortic size with no pathology. Measurements included the sinus of Valsalva at 3.8 cm, mid-ascending aorta at 2.7 cm, proximal descending aorta at 2.2 cm, and diaphragmatic level at 2.0 cm. She reports vaping and has not discontinued this habit. Cardiac Risk Factors age (male over 45, female over 55), hyperlipidemia, hypertension, family history of CAD PAST MEDICAL HISTORY [...] Grandfather pace maker No Ocular Disease Other SOCIAL HISTORY[1] ALLERGIES No Known Allergies Medications: Current Outpatient Medications Medication Sig Dispense Refill amphetamine-dextroamphetamine XR (ADDERALL XR) 30 mg capsule Take 1 capsule by mouth every morning for 30 days. 30 capsule 0 methylphenidate (RITALIN) 20 mg tablet Take 1 tablet by mouth as needed for up to 30 days. Take at approx. 3-4 pm. 30 tablet 0 benzonatate (TESSALON PERLE) 100 mg capsule Take 1 capsule by mouth three times a day as needed. 21 capsule 0 albuterol HFA (PROVENTIL HFA, VENTOLIN HFA) 90 mcg/actuation inhaler Inhale 2 puffs as instructed every 4 hours as needed for wheezing/shortness of breath. 6.7 g 0 omeprazole (PRILOSEC) 20 mg capsule Take 1 capsule by mouth once daily. On empty stomach at least 30 minutes before eating. 90 capsule 1 ondansetron orally disintegrating (ZOFRAN ODT) 4 mg disintegrating tablet Take 1 tablet by mouth every 8 hours as needed for nausea/vomiting. 30 tablet 3 ketoconazole (NIZORAL) 2 % shampoo Apply to affected area two times a week. 120 mL 1 blood sugar diagnostic (BLOOD GLUCOSE TEST) test strip Test blood sugar(s) one times daily. Dx: Type 2 DM - Controlled E11.9 Insulin: No 50 strip 11 methylphenidate (RITALIN) 20 mg tablet Take 1 tablet by mouth as needed for up to 30 days. Take at approx. 3-4 pm. Patient should start on March 20, 2025. 30 tablet 0 methylphenidate (RITALIN) 20 mg tablet Take 1 tablet by mouth as needed for up to 30 days. Take at approx. 3-4 pm. Patient should start on April 19, 2025. 30 tablet 0 amphetamine-dextroamphetamine XR (ADDERALL XR) 30 mg capsule Take 1 capsule by mouth every morning for 30 days. Patient should start on March 20, 2025. 30 capsule 0 amphetamine-dextroamphetamine XR (ADDERALL XR) 30 mg capsule Take 1 capsule by mouth every morning for 30 days. Patient should start on April 19, 2025. 30 capsule 0 dulaglutide (TRULICITY) 0.75 mg/0.5 mL pen injector Inject 0.75 mg subcutaneously one time a week. 6 mL 1 FLUoxetine (PROZAC) 10 mg capsule Take 1 capsule by mouth once daily. 90 capsule rizatriptan (MAXALT) 10 mg tablet Take 1 tablet by mouth as needed for migraine headache (see administration instructions). May repeat dose after 2 hours if needed. Maximum daily dose is 30 mg per day. 18 tablet 3 CPAP/BIPAP/OTHER Type .CPAPSetti (more content not included)... [facility] 04-02-2025 Note HNO ID: [id number] Author: ARIA RUSSELL PA Service: ? Author Type: Physician Molding Press Operator Type: Progress Notes Filed: 04/02/2025 13:57 Note Text: [facility] Subjective Katie Forde is a 24 year old female. Patient presents with: Cough: Cough, congestion, sinus, SOTO and chills x 1 week HPI The patient is a 24-year-old female presenting with dyspnea, diaphoresis, cough, and nasal congestion. Dyspnea: - Dyspnea x1 week. - Notable during a 10-minute shower, requiring her to exit due to difficulty breathing. - Denies history of asthma or other pulmonary conditions. - She does vape Diaphoresis: - Reports feeling hot with a cold body sensation, even in air-conditioned environments. - Took temp a few times, no fever. Cough: - Cough x1 week. Mostly dry, chest feels congested. - Describes a weird burning chest pain with coughing. Nasal Congestion: - Nasal congestion x1 week. - Associated with sinus headaches and facial pressure. - Eyes have been burning since onset of illness. - Using generic Sudafed with no relief. PAST MEDICAL HISTORY Diagnosis Date ADHD (attention [...] ALLERGIES Patient has no known allergies. MEDICATIONS omeprazole (PRILOSEC) 20 mg capsule Take 1 capsule by mouth once daily. On empty stomach at least 30 minutes before eating. ondansetron orally disintegrating (ZOFRAN ODT) 4 mg disintegrating tablet Take 1 tablet by mouth every 8 hours as needed for nausea/vomiting. ketoconazole (NIZORAL) 2 % shampoo Apply to affected area two times a week. blood sugar diagnostic (BLOOD GLUCOSE TEST) test strip Test blood sugar(s) one times daily. Dx: Type 2 DM - Controlled E11.9 Insulin: No amphetamine-dextroamphetamine XR (ADDERALL XR) 30 mg capsule Take 1 capsule by mouth every morning for 30 days. Patient should start on February 18, 2025. methylphenidate (RITALIN) 20 mg tablet Take 1 tablet by mouth as needed for up to 30 days. Take at approx. 3-4 pm. Patient should start on February 18, 2025. methylphenidate (RITALIN) 20 mg tablet Take 1 tablet by mouth as needed for up to 30 days. Take at approx. 3-4 pm. Patient should start on March 20, 2025. [START ON 04/19/2025] methylphenidate (RITALIN) 20 mg tablet Take 1 tablet by mouth as needed for up to 30 days. Take at approx. 3-4 pm. Patient should start on April 19, 2025. amphetamine-dextroamphetamine XR (ADDERALL XR) 30 mg capsule Take 1 capsule by mouth every morning for 30 days. Patient should start on March 20, 2025. [START ON 04/19/2025] amphetamine-dextroamphetamine XR (ADDERALL XR) 30 mg capsule Take 1 capsule by mouth every morning for 30 days. Patient should start on April 19, 2025. dulaglutide (TRULICITY) 0.75 mg/0.5 mL pen injector Inject 0.75 mg subcutaneously one time a week. FLUoxetine (PROZAC) 10 mg capsule Take 1 capsule by mouth once daily. rizatriptan (MAXALT) 10 mg tablet Take 1 tablet by mouth as needed for migraine headache (see administration instructions). May repeat dose after 2 hours if needed. Maximum daily dose is 30 mg per day. CPAP/BIPAP/OTHER Type .CPAPSettings into a note to see current settings/supplies/DME information. propranolol (INDERAL) 20 mg tablet Take 1 tablet by mouth three times a day as needed (for heart rate over 100). amphetamine-dextroamphetamine XR (ADDERALL XR) 30 mg capsule [...] Patient should start on December 19, 2024. amphetamine-dextroamphetamine XR (ADDERALL XR) 30 [...] times a day as needed (for dizziness.vertigo.). triamcinolone acetonide (KENALOG) 0.1 % cream Apply to affected area two times a day as needed. May use for up to 14 days per rash Lancets Test blood sugar(s) one times daily. Dx: Type 2 DM - Controlled E11.9 Insulin: No Norethindrone, Contraceptive, (SELMA) 0.35 mg tablet Take 1 tablet by mouth once daily. amoxic (more content not included)... [facility] 02-14-2025 Telephone encounter Note [facility] in [place] called and he reports they do not have the Pt's blood glucose test strips. He put me through to the pharmacist. I gave him a verbal order for 50 strips with 11 refills. I made sure he had received the order for the Nizoral, Omeprazole, and Zofran ODT. He states they had all of those. Los Chamorro RN [facility] 02-14-2025 Miscellaneous Notes [facility] in [place] called and he reports they do not have the Pt's blood glucose test strips. He put me through to the pharmacist. I gave him a verbal order for 50 strips with 11 refills. I made sure he had received the order for the Nizoral, Omeprazole, and Zofran ODT. He states they had all of those. Los Chamorro RN documented in this encounter [facility] 02-09-2025 Note HNO ID: [id number] Author: KATE SILVA MD Service: ? Author Type: Physician Type: Progress Notes Filed: 03/17/2025 09:41 Note Text: Subjective Katie Forde is a 24 year old female. HPI SUBJECTIVE: Katie Forde is a 24-year-old female with a history of anxiety, presenting for a 3-month follow-up. Katie reports daily palpitations and a persistent sensation of feeling hot, even when others around her feel cold. She notes that sometimes she wakes up feeling hot, but her body feels cold to the touch. She denies any known fevers. She is currently drinking approximately 80 ounces of water daily but has noticed that her urine remains very yellow. She suspects she may be sweating more than usual due to her constant feeling of being hot, especially when outside. She also reports random episodes of dizziness and is unsure if these are related to her anxiety. She has been practicing deep breathing exercises to manage her palpitations. Her heart rate during these episodes is usually in the 70s, as measured by her Apple Watch. She mentions that her psychiatrist believes her symptoms may be due to anxiety, but she is experiencing these symptoms daily without any specific triggers. Katie has a history of insomnia and currently sleeps on the couch, stating that it makes her feel better to fall asleep before her mother does. It takes her approximately 30-45 minutes to fall asleep, and she wakes up 2-3 times during the night. She practices breathing exercises to help with sleep but does not count her breaths. She also reports random episodes of numbness and tingling, as well as back numbness, which she attributes to sleeping on the couch. She has not started any B6, B12, or folic acid supplements. She mentions a persistent bump that she tattooed over, which has not gone away and feels hard to the touch. She denies any changes in size, scaling, or bleeding of the bump. She is currently taking omeprazole, ondansetron, ketoconazole shampoo, glucose test strips, Adderall, and Ritalin. She also has an albuterol inhaler and a couple of topical creams. She denies any issues with her current medications. She has a history of fatty liver and is concerned about her liver function. She also mentions a history of recurrent yeast infections. PAST MEDICAL HISTORY Diagnosis Date ADHD (attention [...] every 8 hours as needed for nausea/vomiting. ketoconazole (NIZORAL) 2 % shampoo Apply to affected area two times a week. blood sugar diagnostic (BLOOD GLUCOSE TEST) test strip Test blood sugar(s) one times daily. Dx: Type 2 DM - Controlled E11.9 Insulin: No amphetamine-dextroamphetamine XR (ADDERALL XR) 30 mg capsule Take 1 capsule by mouth every morning for 30 days. Patient should start on February 18, 2025. methylphenidate (RITALIN) 20 mg tablet Take 1 tablet by mouth as needed for up to 30 days. Take at approx. 3-4 pm. Patient should start on February 18, 2025. [START ON 03/20/2025] methylphenidate (RITALIN) 20 mg tablet Take 1 tablet by mouth as needed for up to 30 days. Take at approx. 3-4 pm. Patient should start on March 20, 2025. [START ON 04/19/2025] methylphenidate (RITALIN) 20 mg tablet Take 1 tablet by mouth as needed for up to 30 days. Take at approx. 3-4 pm. Patient should start on April 19, 2025. [START ON 03/20/2025] amphetamine-dextroamphetamine XR (ADDERALL XR) 30 mg capsule Take 1 capsule by mouth every morning for 30 days. Patient should start on March 20, 2025. [START ON 04/19/2025] amphetamine-dextroamphetamine XR (ADDERALL XR) 30 mg capsule Take 1 capsule by mouth every morning for 30 days. Patient should start on April 19, 2025. dulaglutide (TRULICITY) 0.75 mg/0.5 mL pen injector Inject 0.75 mg subcutaneously one time a week. FLUoxetine (PROZAC) 10 mg capsule Take 1 capsule by mouth once daily. rizatriptan (MAXALT) 10 mg tablet Take 1 tablet by mouth as needed for migraine headache (see administration instructions). May repeat dose after 2 hours if needed. Maximum daily dose is 30 mg per day. CPAP/BIPAP/OTHER Type .CPAPSettings into a note to see current settings/supplies/DME information. propranolol (INDERAL) 20 mg tablet Take 1 tablet by mouth three times a day as needed (for heart rate over 100). albuterol HFA (PROVENTIL HFA, VENTOLIN HFA) 90 mcg/actuation inhaler Inhale 2 puffs as instructed every 4 hours as needed for wheezing/shortness of breath. amphetamine-dextroamphetamine XR (ADDERALL XR) 30 mg capsule Take 1 capsule by mouth loy (more content not included)... [facility] 01-12-2025 Telephone encounter Note The following approved medication requests have been transmitted electronically. Requested Prescriptions Signed Prescriptions Disp Refills methylphenidate (RITALIN) 20 mg tablet 30 tablet 0 Sig: Take 1 tablet by mouth as needed for up to 30 days. Take at approx. 3-4 pm. Patient should start on January 18, 2025. Authorizing Provider: KATE SILVA amphetamine-dextroamphetamine XR (ADDERALL XR) 30 mg capsule 30 capsule 0 Sig: Take 1 capsule by mouth every morning for 30 days. Patient should start on January 18, 2025. Authorizing Provider: KATE SILVA MD Noted last filled 12/06 [facility] 01-12-2025 Miscellaneous Notes The following approved medication requests have been transmitted electronically. Requested Prescriptions Signed Prescriptions Disp Refills methylphenidate (RITALIN) 20 mg tablet 30 tablet 0 Sig: Take 1 tablet by mouth as needed for up to 30 days. Take at approx. 3-4 pm. Patient should start on January 18, 2025. Authorizing Provider: KATE SILVA amphetamine-dextroamphetamine XR (ADDERALL XR) 30 mg capsule 30 capsule 0 Sig: Take 1 capsule by mouth every morning for 30 days. Patient should start on January 18, 2025. Authorizing Provider: KATE SILVA MD Noted last filled 12/06 Patient has been identified by name and date of : Yes Patient phones for refill(s): Requested Prescriptions Pending Prescriptions Disp Refills methylphenidate (RITALIN) 20 mg tablet 30 tablet 0 Sig: Take 1 tablet by mouth as needed for up to 30 days. Take at approx. 3-4 pm. Patient should start on January 18, 2025. amphetamine-dextroamphetamine XR (ADDERALL XR) 30 mg capsule 30 capsule 0 Sig: Take 1 capsule by mouth every morning for 30 days. Patient should start on January 18, 2025. Date of last office visit in primary care: 01/03/2025 Date of next office visit in primary care: 02/09/2025 Please advise. Thank you. Karen Urias LPN. documented in this encounter [facility] 01-11-2025 Telephone encounter Note Patient has been identified by name and date of : Yes Patient phones for refill(s): Requested Prescriptions Pending Prescriptions Disp Refills methylphenidate (RITALIN) 20 mg tablet 30 tablet 0 Sig: Take 1 tablet by mouth as needed for up to 30 days. Take at approx. 3-4 pm. Patient should start on January 18, 2025. amphetamine-dextroamphetamine XR (ADDERALL XR) 30 mg capsule 30 capsule 0 Sig: Take 1 capsule by mouth every morning for 30 days. Patient should start on January 18, 2025. Date of last office visit in primary care: 01/03/2025 Date of next office visit in primary care: 02/09/2025 Please advise. Thank you. Karen Urias LPN. [facility] 01-03-2025 Instructions Sher Hollingsworth APRN.[facility] - 01/03/2025 2:24 PM EDT Clean piercing daily. Apply antibacterial ointment daily. If not improving increase cleaning and ointment to 2-3 times a day. documented in this encounter [facility] 01-03-2025 Note HNO ID: [id number] Author: SHER HOLLINGSWORTH APRN.[facility] Service: ? Author Type: Nurse Practitioner Type: Progress Notes Filed: 01/03/2025 15:52 Note Text: SUBJECTIVE Katie Forde is a 24 year old female here today for a check up on her medical problems. Chief Complaint Patient presents with: Recheck HPI Katie Forde is a 24 year old female. She is an established patient of Kate Silva MD who presents today for follow up. Still not feeling like herself. Not so much depressed but more anxious. More palpitations. Notices these when laying down at night. Not taking her propranolol. Taking the Prozac as 20 mg daily. Sometimes feeling weakness and lightheaded. Sleeping on the couch. Waking up a lot. Still using CPAP nightly. Sugars okay, around 107 fasting. Work up has included Holter monitor and has MRIs ordered to complete. Her medications were reviewed today and her list is now up to date. Medications Current Outpatient Medications Medication Sig FLUoxetine (PROZAC) 10 mg capsule Take 1 capsule by mouth once daily. rizatriptan (MAXALT) 10 mg tablet Take 1 tablet by mouth as needed for migraine headache (see administration instructions). May repeat dose after 2 hours if needed. Maximum daily dose is 30 mg per day. ondansetron orally disintegrating (ZOFRAN ODT) 4 mg disintegrating tablet Take 1 tablet by mouth every 8 hours as needed for nausea/vomiting. propranolol (INDERAL) 20 mg tablet Take 1 tablet by mouth three times a day as needed (for heart rate over 100). albuterol HFA (PROVENTIL HFA, VENTOLIN HFA) 90 mcg/actuation inhaler Inhale 2 puffs as instructed every 4 hours as needed for wheezing/shortness of breath. ketoconazole (NIZORAL) 2 % shampoo Apply to affected area two times a week. methylphenidate (RITALIN) 20 mg tablet Take 1 tablet by mouth as needed for up to 30 days. Take at approx. 3-4 pm. Patient should start on December 19, 2024. amphetamine-dextroamphetamine XR (ADDERALL XR) 30 [...] times a day as needed (for dizziness.vertigo.). triamcinolone acetonide (KENALOG) 0.1 % cream Apply to affected area two times a day as needed. May use for up to 14 days per rash omeprazole (PRILOSEC) 20 mg capsule Take 1 capsule by mouth once daily. On empty stomach at least 30 minutes before eating. dulaglutide (TRULICITY) 0.75 mg/0.5 mL pen injector Inject 0.75 mg subcutaneously one time a week. methylphenidate (RITALIN) 20 mg tablet Take 1 tablet by mouth as needed for up to 30 days. Take at approx. 3-4 pm. amphetamine-dextroamphetamine XR (ADDERALL XR) 30 mg capsule Take 1 capsule by mouth every morning for 30 days. CPAP/BIPAP/OTHER Type .CPAPSettings into a note to [...] Take 1 tablet by mouth once daily. No current facility-administered medications for this visit. [...] current everyday user Substances: Nicotine, Flavoring Devices: Pre (more content not included)... [facility] 01-03-2025 History of Present illness Narrative SUBJECTIVE Katie Forde is a 24 year old female here today for a check up on her medical problems. Chief Complaint Patient presents with: Recheck HPI Katie Forde is a 24 year old female. She is an established patient of Kate Silva MD who presents today for follow up. Still not feeling like herself. Not so much depressed but more anxious. More palpitations. Notices these when laying down at night. Not taking her propranolol. Taking the Prozac as 20 mg daily. Sometimes feeling weakness and lightheaded. Sleeping on the couch. Waking up a lot. Still using CPAP nightly. Sugars okay, around 107 fasting. Work up has included Holter monitor and has MRIs ordered to complete. Her medications were reviewed today and her list is now up to date. Medications Current Outpatient Medications Medication Sig FLUoxetine (PROZAC) 10 mg capsule Take 1 capsule by mouth once daily. rizatriptan (MAXALT) 10 mg tablet Take 1 tablet by mouth as needed for migraine headache (see administration instructions). May repeat dose after 2 hours if needed. Maximum daily dose is 30 mg per day. ondansetron orally disintegrating (ZOFRAN ODT) 4 mg disintegrating tablet Take 1 tablet by mouth every 8 hours as needed for nausea/vomiting. propranolol (INDERAL) 20 mg tablet Take 1 tablet by mouth three times a day as needed (for heart rate over 100). albuterol HFA (PROVENTIL HFA, VENTOLIN HFA) 90 mcg/actuation inhaler Inhale 2 puffs as instructed every 4 hours as needed for wheezing/shortness of breath. ketoconazole (NIZORAL) 2 % shampoo Apply to affected area two times a week. methylphenidate (RITALIN) 20 mg tablet Take 1 tablet by mouth as needed for up to 30 days. Take at approx. 3-4 pm. Patient should start on December 19, 2024. amphetamine-dextroamphetamine XR (ADDERALL XR) 30 [...] times a day as needed (for dizziness.vertigo.). triamcinolone acetonide (KENALOG) 0.1 % cream Apply to affected area two times a day as needed. May use for up to 14 days per rash omeprazole (PRILOSEC) 20 mg capsule Take 1 capsule by mouth once daily. On empty stomach at least 30 minutes before eating. dulaglutide (TRULICITY) 0.75 mg/0.5 mL pen injector Inject 0.75 mg subcutaneously one time a week. methylphenidate (RITALIN) 20 mg tablet Take 1 tablet by mouth as needed for up to 30 days. Take at approx. 3-4 pm. amphetamine-dextroamphetamine XR (ADDERALL XR) 30 mg capsule Take 1 capsule by mouth every morning for 30 days. CPAP/BIPAP/OTHER Type .CPAPSettings into a note to [...] Take 1 tablet by mouth once daily. No current facility-administered medications for this visit. [...] Cardiovascular: Positive for palpitations. Neurological: Positive for dizziness and light-headedness. Psychiatric/Behavioral: Positive for sleep disturbance. The patient is nervous/anxious. OBJECTIVE BP 120/80 Pulse 79 Wt 289 lb 14.5 oz (131.5kg) SpO2 99% LMP 12/19/2024 Physical Exam Vitals and nursing note reviewed. [...] 300.02, 300.01, ICD10: F41.1, F41.0 (primary diagnosis) Continue Prozac, start hydroxyzine as needed as ordered by mental health prescriber. 2. Panic attacks - ICD9: 300.01, ICD10: F41.0 See above. 3. Palpitations - ICD9: 785.1, ICD10: R00.2 Encouraged use of propranolol, check ECHO. - ECHO - PERFLUTREN LIPID MICROSPHERES 1.1 MG/ML INJECTION IN NS 10 ML - SODIUM CHLORIDE 0.9 % (FLUSH) INJECTION SYRINGE 4. Lightheaded - ICD9: 780.4, ICD10: R42 See above. 5. Attention deficit hyperactivity disorder (ADHD), combined type - ICD9: 314.01, ICD10: F90.2 Discussed we might need to trial a decrease in her Ritalin given her persistent palpations. 6. Obstructive sleep apnea syndrome - ICD9: 327.23, ICD10: G47.33 Using her CPAP 7. Type 2 diabetes mellitus without complication, without long-term current use of insulin (HCC) - ICD9: 250.00, ICD10: E11.9 - Controlled - Continue current medications - DULAGLUTIDE 0.75 MG/0.5 ML SUBCUTANEOUS PEN INJECTOR 8. Fatty liver - ICD9: 571.8, ICD10: K76.0 - DULAGLUTIDE 0.75 MG/0.5 ML SUBCUTANEOUS PEN INJECTOR Portions of this note have been entered [...] to improve, for Keep next scheduled appointment.. JB Winslow documented in this encounter [facility] 12-20-2024 Telephone encounter Note Per Dr. Mcallister he reviewed patients monitor and it is ok. No meds needed. Patient called and notified. Giulia Vo RN [facility] 12-20-[address] Mcallister he reviewed patients monitor and it is ok. No meds needed. Patient called and notified. Giulia Vo RN Heart monitor results from outside facility scanned into [facility] under cardio tab. Janny Feliz MA Patient states that she is noticing more frequent PVCs and noting them closer together. Patient reports that she notes them more when laying down. Denies noting them with activity. Patient has been reporting an increased anxiety and recently diagnosed with PTSD. Last Zio was 10/29/22. Next office visit is in March. Patient asking about having another Zio monitor applied. If Zio is order patient is asking to have it applied in office. Please review and advise. Giulia Vo RN documented in this encounter [facility] 12-20-2024 Telephone encounter Note Heart monitor results from outside facility scanned into epic under cardio tab. Janny Feliz MA [facility] 12-06-2024 Note HNO ID: [id number] Author: SHER HOLLINGSWORTH APRN.CRIBBER Service: ? Author Type: Nurse Practitioner Type: Progress Notes Filed: 12/06/2024 14:52 Note Text: SUBJECTIVE Katie Forde is a 23 year old female here today for a check up on her medical problems. Chief Complaint Patient presents with: Recheck: was seen in [facility] ER for elevated heart rate HPI Katie Forde is a 23-year-old female with a history of anxiety, presenting with persistent and worsening anxiety. She also reports worsening anxiety, which has been severe enough to limit her ability to stay in public places, such as a recent episode at [facility] where she could only stay for 5 minutes before needing to leave. She describes frequent palpitations, particularly at night, which make it difficult for her to fall asleep. She also notes a new anxious tic, where she holds her breast or moves her leg repetitively without realizing it. She reports feeling anxious during a recent date at [facility], despite feeling safe. She denies recent panic attacks but states that her anxiety is the worst it has ever been. She denies suicidal ideation and expresses a fear of . Katie was recently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 indicated. Consult order filed for neurology. Patient reports she was seen in [facility] ER on 09/29/24 & 10/06/24 for the [...] and neurology? Please MyChart patient with reply. documented in this encounter [facility] 10-08-2024 Telephone encounter Note My chart message sent to patient. Zohreh Fregoso LPN [facility] 10-07-2024 Telephone encounter Note Noted CBC in ER with WBC up to 16+. Also noted that ER doctor recommended hematology and neurology consults. Will touch base with knee bolter before sending formal order so they can make recommendations for labs to order prior as indicated. Consult order filed for neurology. [facility] 10-07-2024 Telephone encounter Note Spoke w pt and she is scheduled w Dr Eric for10/11. Reno Mccollum [facility] 10-07-2024 Miscellaneous Notes Spoke w pt and she is scheduled w Dr Eric for10/11. Reno Mccollum She is already established with Dr. Yanez. Please schedule a follow up visit with him. Eli Tilley RN Patient states she was at [facility] ED and they informed her to contact hematology for scheduling. Please review and advise. Patient had seen Dr. Burris 07/[address] Yanez 12/2022, 06/2023 documented in this encounter [facility] 10-07-2024 Telephone encounter Note She is already established with Dr. Yanez. Please schedule a follow up visit with him. Eli Tilley RN [facility] Work Phone: 10-07-2024 Telephone encounter Note Patient reports she was seen in [facility] ER on 09/29/24 & 10/06/24 for the [...] and neurology? Please MyChart patient with reply. [facility] 10-07-2024 Telephone encounter Note Patient states she was at [facility] ED and they informed her to contact hematology for scheduling. Please review and advise. Patient had seen Dr. Burris 07/[address] Yanez 12/2022, 06/2023 [facility] Work Phone: 10-06-2024 Discharge summary [facility] 10-06-2024 Radiology Diagnostic study note [facility] Imaging Services [address] [place] [address] [id number] Brain/Head without Contrast MR#: [id number] Acct: [id number] Name: KATIE FORDE Rep #: [id number] : 2000 F 23 From: Cecy Jaimes MD PCP: Dr. Kate Silva MD Status: RE G ER Study:Brain/Head without Contrast Date of Exa m: 10/06/24 Exam# [id number] Ordering Dr: Mike Feldman DO PROCEDURE: BRAIN/HEAD [...] Silva MD; Dr. Mike Feldman DO ~ Software Validation Technician: Signed [facility] 10-06-2024 Discharge summary Note Date/Time October 06, 2024 10:26pm [facility] Medical Records Department [address] [place] [address] Emergency Department Summary 10/06/24 MR#: [id number] Acct: [id number] Name: KATIE FORDE Rep #:[id number] : [...] denies urinary symptoms. [facility] similar symptoms: [facility] Medical History Depersonalization disorder Fatty liver Smoker [...] clinician: N/A This note was generated with Education Everytime dictation software. It may contain incorrectwords, spelling, [...] (Auto) 72.5 H Lymph % (Auto) 21.6 [place] % (Auto) 4.6 Eos % (Auto) 0.4 [...] IMPRESSION: No acute intracranial abnormality. Reading Location[facility] Discharge Plan Triage Chief Complaint: General Illness [...] for further workup if needed. Print Language: Zambian Disposition Disposition: Home, Self Care What to do if you have Problems For any increased pain, shortness of breath, bleeding, nausea or vomiting, chestpain, or any unexpected problems, contact your Primary Care Provider. Call [facility] ([phone]) or report to the closest Emergency Room. Call 911 if necessary. 10/06/242225 <Electronically signed by Mike Caballero> Cosigner Signature (if applicable): CC: Dr. Kate Silva MD ~ Signed [facility] Work Phone: [phone] Instructions* Patient Instructions* Kate Silva MD - 10/01/2024 11:16 AM EDT [...] symptoms persist or worsen. [facility]25 NoteHNO ID: [id number] Author: KATE SILVA MD Service: ? Author Type: Physician Type: Progress Notes Filed: 10/01/2024 11:22 Note Text: This note was created using Armorize Technologiesriter. Subjective Katie Forde is a 23 year [...] issues with her kidneys. She has tried gfdg-psp-iwrytdk Dramamine for the lightheadedness but reports that [...] days. Patient should start (more content not included)...[facility]04-04-2025 History of Present illness Narrative* Kate Silva MD - 10/01/2024 10:49 AM EDT This note was created using Posh Eyes. Subjective Katie Forde is a 23 year [...] issues with her kidneys. She has tried fooo-myr-kugzswr Dramamine for the lightheadedness but reports that [...] Thought content normal. Judgment: Judgment normal. From [facility]: Labs: - (no date) - CBC: - [...] pharmacy Kate Silva MD [facility] Discharge summary [facility] Medical Records Department [address] [place] [address] Emergency Department Summary 09/29/24 MR#: [id number] Acct: [id number] Name: KATIE FORDE Rep #:[id number] : 2000 23 From: Shiv Molina PCP: Dr. Kate Silva MD Status:RE G ER Location: ED HPI History of Present Illness Chief Complaint: Weakness PFSH [facility] Medical History Smoker Marfan syndrome ADHD (attention [...] History obtained from others: none Consults: none [facility] Narrative: The patient was initially hemodynamically, afebrile [...] Dispo: Discharge This note was generated with Education Everytime dictation software. It may contain incorrectwords, spelling, [...] % (Auto) 66.7 Lymph % (Auto) 25.9 [place] % (Auto) 5.8 Eos % (Auto) 0.5 [...] Clarity Clear Urine pH 7.0 Ur Specific [place] 1.010 Urine Protein 15 H Urine Glucose [...] 20:52 IMPRESSION: No Acute Findings. [facility] Dis[facility] Triage Chief Complaint: Weakness ED [...] for further outpatient evaluationand management. Print Language: Zambian Disposition Disposition: Home, Self Care What to do if you have Problems For any increased pain, shortness of breath, bleeding, nausea or vomiting, chestpain, or any unexpected problems, contact your Primary Care Provider. Call [facility] ([phone]) or report tothe closest Emergency Room. Call 911 if necessary. 09/29/242152 Cosigner Signature (if applicable): CC: Dr. Kate Silva MD ~ Signed [facility]04-02-2025 Radiology Diagnostic study note [facility] Imaging Services [address] [place] [address] Chest 1 View (Portable) MR#: [id number] Acct: [id number] Name: KATIE FORDE Rep #: [id number] : 2000 F 23 From: Abhishek Cortes DO PCP: Dr. Kate Silva MD Status: RE G ER Study:Chest 1 View (Portable) Date of Exam: 09/29/24 Exam# [id number] Ordering Dr: James Roper DO PROCEDURE: CHEST [...] Silva MD; Dr. Shiv Roper DO ~ Software Validation Technician: Signed [facility]04-02-2025 Discharge summary Author Shiv Roper [facility] Note Date/Time September 29, 2024 9:53 pm [facility] Medical Records Department [address] [facility] [facility] [address] [place] [address] Emergency Department Summary 09/29/24 MR#: [id number] Acct: [id number] Name: KATIE FORDE Rep #:[id number] : 2000 23 From: Shiv Molina PCP: Dr. Kate Silva MD Status:RE G ER Location: ED HPI History of Present Illness Chief Complaint: Weakness PFSH [facility] Medical History Smoker Marfan syndrome ADHD (attention [...] History obtained from others: none Consults: none [facility] Narrative: The patient was initially hemodynamically, afebrile [...] Dispo: Discharge This note was generated with Education Everytime dictation software. It may contain incorrectwords, spelling, [...] % (Auto) 66.7 Lymph % (Auto) 25.9 [place] % (Auto) 5.8 Eos % (Auto) 0.5 [...] Clarity Clear Urine pH 7.0 Ur Specific [place] 1.010 Urine Protein 15 H Urine Glucose [...] for further outpatient evaluationand management. Print Language: Zambian Disposition Disposition: Home, Self Care What to do if you have Problems For any increased pain, shortness of breath, bleeding, nausea or vomiting, chestpain, or any unexpected problems, contact your Primary Care Provider. Call [facility] ([phone]) or report to the closest Emergency Room. Call 911 if necessary. 09/29/242152 <Electronically signed by Shiv Roper DO> Cosigner Signature (if applicable): CC: Dr. Kate Silva MD ~ Signed [facility] Work Phone: [phone] Telephone encounter Note* Telephone Encounter - Pat Ferrer APRN.CNP - 09/27/2024 5:08 PM EDT Order filed. Pat Ferrer APRN.CNP [facility]03-31-2025 Miscellaneous Notes* Telephone Encounter - Pat Ferrer APRN.CNP - 09/27/2024 5:08 PM EDT Order filed. Pat Ferrer APRN.CNP * Telephone Encounter - Kristin Newby RN - 09/27/2024 3:03 PM EDT Please file order so patient can schedule. Kristin Newby RN documented in [facility]03-[facility]25 Telephone encounter Note * Telephone Encounter - Kristin Newby RN - 09/27/2024 3:03 PM EDT Please file order so patient can schedule. Kristin Newby RN [facility]03-17-2025 Telephone encounter Note* Telephone Encounter - Negin [...] Recinos LPN September 13, 2024 9:50 AM [facility]03-17-2025 Miscellaneous Notes* Telephone Encounter - Negin Recinos [...] 13, 2024 9:50 AM documented in this encounterMer[facility]03-13-2025 Telephone encounter Note * Telephone Encounter - Lorri Quintanilla MA - 09/09/2024 8:25 AM EDT See update from pt regarding symptoms. Lorri Quintanilla MA [facility]03-13-2025 Miscellaneous Notes* Telephone Encounter - Lorri Quintanilla MA - 09/09/2024 8:25 AM EDT See update from pt regarding symptoms. Lorri Quintanilla MA * Telephone Encounter - Cookie Scales OCCA - 08/23/2024 3:02 PM EST Please advise on patients lab work from 08/09. Thank you. NARA Rooney documented in this encounterMer[facility]03-[facility]-2025 NoteHNO ID: [id number] Author: SANTI MCALLISTER MD Service: ? Author Type: Physician Type: Progress Notes Filed: 08/30/2024 14:34 Note Text: Santi Mcallister MD Interventional Cardiology [address] [place] [address] [phone] Chief Complaint Patient presents with: Follow Up: [...] 100 Each 11 Norethind (more content not included)...[facility]03-03-2025 History of Present illness Narrative* Santi Mcallister MD - 08/30/2024 2:28 PM EST Images from the original note were not included. Santi Mcallister MD Interventional Cardiology [address] [address] [phone] Chief Complaint Patient presents with: Follow Up: [...] to correct any errors. documented in this encounterMercy [facility]02-25-2025 NoteHNO ID: [id number] Author: RADHA LONG PA-C Service: ? Author Type: Physician Molding Press Operator Type: Progress Notes Filed: 08/24/2024 10:36 Note Text: This note was created using Armorize Technologiesriter. Subjective Katie Forde is a 23 year [...] TABLET - BENZONATATE 100 MG CAPSULE ADITYA [facility]02-25-2025 History of Present illness Narrative* Radha Long PA-C - 08/24/2024 10:34 AM EST This note was created using Posh Eyes. Subjective Katie Forde is a 23 year [...] CAPSULE Radha Long PA-C documented in this encounterMer[facility]02-24-2025 Telephone encounter Note * Telephone Encounter - Cookie Scales OCCA - 08/23/2024 3:02 PM EST Please advise on patients lab work from 08/09. Thank you. NARA Rooney [facility]02-10-2025 Instructions* Patient Instructions* Kate Silva MD - 08/09/2024 11:33 AM EST - Adderall XR 30 mg and Ritalin prescriptions sent to [email or web address]; call the pharmacy 3 days before you need a refill to ensure they have it in stock. - Apply Triamcinolone cream to affected areas twice daily for up to 14 days as needed for eczema; prescription sent to [email or web address]. - Use CeraVe Itch Relief lotion and [...] - Schedule a follow-up appointment with your inpatient pharmacist for a Pap test and discuss the need for avulvar biopsy. - Next appointment in 3 months. documented in this encounterMer[facility]02-10-2025 NoteHNO ID: [id number] Author: KATE SILVA MD Service: ? Author Type: Physician Type: Progress Notes Filed: 08/09/2024 23:21 Note Text: This note was created using Netlistter. Subjective Katie Forde is a 23 year [...] eczema, and nocturnal abdominal pain with emesis. aKtie reports diffuse myalgia that began approximately 1 [...] 17 but not filled by her pharmacy, [email or web address]. She also requests medication for nausea and eczema. She is due for a Pap smear and a vulvar biopsy due to recurrent yeast infections, as recommended by her inpatient pharmacist. PAST MEDICAL HISTORY Diagnosis Date ADHD (attention [...] Take 1 t (more content not included)... [facility]02-10-2025 History of Present illness Narrative* Kate Silva MD - 08/09/2024 11:02 AM EST This note was created using Armorize Technologiesriter. Subjective Katie Forde is a 23 year [...] 17 but not filled by her pharmacy, [email or web address]. She also requests medication for nausea and eczema. She is due for a Pap smear and a vulvar biopsy due to recurrent yeast infections, as recommended by her inpatient pharmacist. PAST MEDICAL HISTORY Diagnosis Date ADHD (attention [...] 30 mg and Ritalin prescriptions; sent to [email or web address]. - Provided prescriptions for September 08 and [...] Advised monitoring for yeast infections; follow-up with inpatient pharmacist recommended. # Eczema, unspecified type (L30.9) - [...] management. Kate Silva MD documented in this encounterMer[facility]01-20-2025 Telephone encounter Note * Telephone Encounter - Shukri Duenas MA - 07/19/2024 7:52 AM EST Patient phones requesting refills as follows: Requested Prescriptions Pending Prescriptions Disp Refills omeprazole (PRILOSEC) 20 mg capsule 90 capsule 1 Sig: Take 1 capsule by mouth once daily. On empty stomach at least 30 minutes before eating. Please review and advise. Shukri Duenas MA [facility]01-20-2025 Miscellaneous Notes* Telephone Encounter - Shukri Duenas MA - 07/19/2024 7:52 AM EST Patient phones requesting refills as follows: Requested Prescriptions Pending Prescriptions Disp Refills omeprazole (PRILOSEC) 20 mg capsule 90 capsule 1 Sig: Take 1 capsule by mouth once daily. On empty stomach at least 30 minutes before eating. Please review and advise. Shukri Duenas MA documented in this encounterMercy [facility]01-14-2025 Telephone encounter Note * Telephone Encounter - Pat Ferrer APRN.CNP - 07/13/2024 3:44 PM EST Pt needs scheduled for vulvar biopsy. Pat Ferrer APRN.CNP [facility]01-14-2025 Miscellaneous Notes* Telephone Encounter - Pat Ferrer APRN.CNP - 07/13/2024 3:44 PM EST Pt needs scheduled for vulvar biopsy. Pat Ferrer APRN.CNP documented in this encounterMercy [facility]12-19-2024 Telephone encounter Note * Telephone Encounter - [...] 3-4 pm. Authorizing Provider: KATE SILVA MD [facility]12-19-2024 Miscellaneous Notes* Telephone Encounter - Kate Silva [...] you. Karen Urias LPN. documented in this encounterMercy [facility] Hospital12-19-2024 Telephone encounter Note * Telephone Encounter - [...] Please advise. Thank you. Karen Urias LPN. [facility]12-03-2024 Telephone encounter Note* Telephone Encounter - Eulalia Hobbs RN - 06/01/2024 8:47 AM EST MyChart message sent to patient. [facility]12-03-2024 Miscellaneous Notes* Telephone Encounter - Eulalia Hobbs RN - 06/01/2024 8:47 AM EST MyChart message sent to patient. documented in this encounterMercy [facility]11-27-2024 Telephone encounter Note * Telephone Encounter - Negin Recinos LPN - 05/26/2024 7:25 AM EST Anything else to add? [facility]11-27-2024 Miscellaneous Notes* Telephone Encounter - Negin Recinos LPN - 05/26/2024 7:25 AM EST Anything else to add? documented in this encounterMercy Health [facility]field Hospital11-20-2024 NoteHNO ID: [id number] Author: ARTHUR JOSEPH PA-C Service: ? Author Type: Physician Molding Press Operator Type: Progress Notes Filed: 05/19/2024 12:09 Note Text: This note was created using Posh Eyes. Subjective Katie Forde is a 23 year [...] rhythm. Heart sounds: Nor (more content not included)...[facility] 05-19-2024 History of Present illness Narrative* Arthur Joseph PA-C - 05/19/2024 12:06 PM EST This note was created using Armorize Technologiesriter. Subjective Katie Forde is a 23 year [...] worsen. Arthur Joseph PA-C documented in this encounterMercy Health Fairfield Hospital11-19-2024 Telephone encounter Note * Telephone Encounter - Sher Hollingsworth APRN.CNP - 05/18/2024 7:12 AM EST [facility] All prescriptions have been APPROPRIATELY filled. No suspiciousactivity was identified. 05/18/2024 by Sher Hollingsworth APRN.CNP [facility]11-19-2024 Miscellaneous Notes* Telephone Encounter - Sher Hollingsworth APRN.CNP - 05/18/2024 7:12 AM EST [facility] All prescriptions have been APPROPRIATELY filled. No suspiciousactivity was identified. 05/18/2024 by Sher Hollingsworth APRN.CNP * Telephone Encounter - Negin Recinos LPN [...] 17, 2024 4:11 PM documented in this encounterMercy Health Fairfield Hospital11-18-2024 Telephone encounter Note * Telephone Encounter - [...] Recinos LPN May 17, 2024 4:11 PM [facility]11-14-[facility] Telephone encounter Note* Telephone Encounter - Kelly [...] medications regardless of results. Kelly Nunez APRN.CNM [facility] Work Phone: [phone] 843-788511-14-2024 Miscellaneous Notes* Telephone Encounter - Kelly Nunez [...] will be picking up Brexafemme from [facility] today to start that. Please advise Pt on what she needs to do.Princess Govea RN documented in this encounterMercy Health Fairfield Hospital11-14-2024 Telephone encounter Note * Telephone Encounter - Princess Govea RN - 05/13/2024 10:02 AM EST Please see Pt's mycProxsyst messages from today and address in [place] and RM absence. Pt seen in office yesterday for vulvar itching. She will be picking up Brexafemme from [facility] today to start that. Please advise Pt on what she needs to do.Princess Govea RN [facility]11-13-2024 NoteHNO ID: [id number] Author: REBECA BEASLEY APRN.CNM Service: ? Author Type: Drag Out Man Type: Progress Notes Filed: 05/12/2024 16:49 Note Text: Compounder offered: Patient declines. Katie Forde is a [...] L0 SAB0 IAB0 Ectopic0 Multiple0 Live Births0 Manufacturing Helper History LMP: 03/31/2024 (Exact Date), Having periods Age at Menarche: Age at First : Age at Menopause: Manufacturing Helper History Comments: Sexual Activity: Not Currently; [...] sensitive examination was discu (more content not included)...[facility]11-13-[facility] History of Present illness Narrative* Rebeca Beasley APRN.DIEGO - 05/12/2024 3:56 PM EST Compounder offered: Patient declines. Katie Forde is a [...] L0 SAB0 IAB0 Ectopic0 Multiple0 Live Births0 Manufacturing Helper History LMP: 03/31/2024 (Exact Date), Having periods Age at Menarche: Age at First : Age at Menopause: Manufacturing Helper History Comments: Sexual Activity: Not Currently; [...] discussed with the Patient or Patient's Authorized Automobile Brake Bonder. As applicable, any other physician, advance practice provider, medical student, or other health professional student that will be observing or involved in the sensitive examination for educational or training purposes was discussed with the Patient or Authorized Automobile Brake Bonder. The Patient or Authorized Automobile Brake Bonder has agreed to proceed with the sensitive examination. (Sensitive examination includes inspection and/or palpation of the breasts, pelvis, prostate and anorectal regions). EXAM: BP 120/80 Wt 301 lb 3.2 oz (136.6kg) LMP 03/31/2024 GENERAL: pleasant, female in no apparent distress PELVIC: external genitalia normal, normal Bartholin's glands, urethra, Bayfront's glands, no vulvar lesions, no cervical lesions, [...] treatment Rebeca Beasley APRN.CNM documented in this encounterMercy Health [facility]field Hospital11-01-2024 History of Present illness Narrative* Sher Hollingsworth APRN.CNP - 04/30/2024 12:58 PM EDT SUBJECTIVE Katie [...] some urinary frequency. Has been working with jacket changer for issues with persistent vaginal yeast infections. [...] complication, without long-term current use of insulin ([facility]) - ICD9: 250.00, ICD10: E11.9 (primary diagnosis) [...] - ICD9: 112.1, ICD10: B37.31 Working with jacket changer. Portions of this note have been entered [...] medications.. Sher Hollingsworth APRN-MERLIN documented in this encounterMercy Health [facility]field Hospital11-01-2024 Instructions* Patient Instructions* Negin Recinos LPN - [...] treated. A physician, nurse practitioner or physician speech pathology assistant may treat with a short course [...] women if symptoms resolve. documented in this encounterMercy Health Fairfield Hospital10-15-2024 Telephone encounter Note * Telephone Encounter - [...] Please advise. Thank you. Karen Urias LPN. [facility]10-15-[facility]24 Miscellaneous Notes* Telephone Encounter - Karne Urias LPN - 04/13/2024 3:43 PM EDT [...] you. Karen Urias LPN. documented in this encounterMercy Health Fairfield Hospital09-20-2024 History of Present illness Narrative* Sher Hollingsworth APRN.CRIBBER - 03/19/2024 10:08 AM EDT SUBJECTIVE Katie [...] medication.. Sher Hollingsworth APRN-MERLIN documented in this encounterMercy Health [facility]field Hospital09-16-2024 Telephone encounter Note * Telephone Encounter - Sher Hollingsworth APRN.CNP - 03/15/2024 3:50 PM EDT PDMP website checked and validated. All prescriptions have been APPROPRIATELY filled. No suspiciousactivity was identified. 03/15/2024 by Sher Hollingsworth APRN.CNP [facility]09-16-[facility]24 Miscellaneous Notes* Telephone Encounter - Sher Hollingsworth APRN.CNP - 03/15/2024 3:50 PM EDT PDMP website checked and validated. All prescriptions have been APPROPRIATELY filled. No suspiciousactivity was identified. 03/15/2024 by Sher Hollingsworth APRN.MERLIN * Telephone Encounter - Courtney Holcomb LPN [...] 15, 2024 3:30 PM documented in this encounterMercy Health [facility]field Hospital09-16-2024 Telephone encounter Note * Telephone Encounter - [...] Holcomb LPN March 15, 2024 3:31 PM [facility]09-16-[facility]24 Miscellaneous Notes* Telephone Encounter - Courtney Holcomb [...] 15, 2024 3:31 PM documented in this encounterMercy Health [facility]field Hospital09-16-2024 Telephone encounter Note * Telephone Encounter - [...] Holcomb LPN March 15, 2024 3:30 PM [facility]09-06-[facility] Telephone encounter Note* Telephone Encounter - Zelalem [...] Forde MA March 05, 2024 11:40 AM [facility]09-06-[facility] Miscellaneous Notes* Telephone Encounter - Zelalem Forde [...] 05, 2024 11:40 AM documented in this encounterMercy Health Fairfield Hospital09-05-2024 History of Present illness Narrative* Pat Ferrer APRN.CRIBBER - 03/04/2024 12:37 PM EDT Katie Forde [...] L0 SAB0 IAB0 Ectopic0 Multiple0 Live Births0 Manufacturing Helper History LMP: 10/21/2023 (Exact Date), Having periods Age at Menarche: Age at First : Age at Menopause: Manufacturing Helper History Comments: Sexual Activity: Not Currently; [...] doses Call if no improvement Pat Ferrer APRN.CNP Medical Decision Making: Problems: Low: Acute, uncomplicated illness or injury Risk: Moderate: Drug management Medical Decision Making Level: 3 - Low documented in this encounterMercy Health Fairfield Hospital09-03-2024 History of Present illness Narrative* Rebeca Foley APRN.CNP - 03/02/2024 12:36 PM EDT This note was created using Armorize Technologiesriter. Subjective Katie Forde is a 23 year [...] history is provided by the patient. No broomcorn thresher was used. Nasal Congestion This is a [...] worsen. Rebeca Foley APRN.CNP documented in this encounterMercy Health Fairfield Hospital08-21-2024 Telephone encounter Note * Telephone Encounter - Natalie Mcrae RN - 02/18/2024 2:18 PM EDT Patient informed and scheduled [facility]08-21-2024 Miscellaneous Notes* Telephone Encounter - Natalie Mcrae RN - 02/18/2024 2:18 PM EDT Patient informed and scheduled * Telephone Encounter - Raquel Marcano APRN.CNP - 02/18/2024 2:03 PM EDT Recommend follow up appointment with RM for management of recurrent yeast as this will likely be anissue with new DM diagnosis.Rx sent for Monistat to pharmacy - her insurance may cover it. Raquel Marcano APRN.CNP * Telephone Encounter - Natalie Mcrae RN - 02/18/2024 1:41 PM EDT Last seen for annual in 2020? Has been seen for problem visits since then. Looks like recently diagnosed with Type 2 diabetes -see 01/26 Sher Cunha visit documented in this encounterMercy Health Fairfield Hospital08-21-2024 Telephone encounter Note * Telephone Encounter - Raquel Marcano APRN.CNP - 02/18/2024 2:03 PM EDT Recommend follow up appointment with RM for management of recurrent yeast as this will likely be anissue with new DM diagnosis.Rx sent for Monistat to pharmacy - her insurance may cover it. aRquel Marcano APRN.CRIBBER [facility]08-21-2024 Telephone encounter Note* Telephone Encounter - Natalie Mcrae RN - 02/18/2024 1:41 PM EDT Last seen for annual in 2020? Has been seen for problem visits since then. Looks like recently diagnosed with Type 2 diabetes -see 01/26 Sher Cunha visit [facility]08-14-[facility] Telephone encounter Note* Telephone Encounter - Janny [...] Montoya LPN February 11, 2024 7:56 AM [facility]08-14-[facility]24 Miscellaneous Notes* Telephone Encounter - Janny Montoya [...] 11, 2024 7:56 AM documented in this encounterMercy Health Fairfield Hospital08-14-2024 Telephone encounter Note * Telephone Encounter - Janny Montoya LPN - 02/11/2024 7:52 AM EDT Our records show a valid rx at the pharmacy. Janny Montoya LPN [facility]08-14-2024 Miscellaneous Notes* Telephone Encounter - Janny Montoya LPN - 02/11/2024 7:52 AM EDT Our records show a valid rx at the pharmacy. Janny Montoya LPN documented in this encounterMercy Health Fairfield Hospital08-13-2024 History of Present illness Narrative* Pat Ferrer APRN.CRIBBER - 02/10/2024 2:49 PM EDT Compounder offered: Patient declines. Katie Forde is a 23 year old female who presents for problem visit for a Yeast Infection. HPI: Patient is here for a yeast infection, she is having discharge. 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 LMP: 10/21/2023 (Exact Date), Having periods Age at Menarche: Age at First : Age at Menopause: Manufacturing Helper History Comments: Sexual Activity: Not Currently; [...] external genitalia normal, normal Bartholin's glands, urethra, Bayfront's glands, no vulvar lesions, no cervical lesions, [...] Level: 3 - Low documented in this encounterMercy Health [facility]field Hospital08-12-2024 Telephone encounter Note * Telephone Encounter - [...] Holcomb LPN February 09, 2024 2:58 PM [facility]08-12-[facility]24 Miscellaneous Notes* Telephone Encounter - Courtney Holcomb [...] 09, 2024 2:58 PM documented in this encounterMercy Health Fairfield Hospital08-05-2024 History of Present illness Narrative* Gerardo Holder MD - 02/02/2024 2:44 PM EDT Gerardo Holder MD Department of Orthopaedics Orthopaedics [address] [facility] [address] Dept: [phone] Dept February 02, 2024 CHIEF COMPLAINT: New [...] IMPRESSION: NORMAL APPEARANCE OF THE RIGHT HAND Software Validation Technician: [facility] Transcribe Date/Time: Dec 17 2023 10:37A Dictated [...] pain. Third MCP joint swelling at the terrence e of incident. Technique: XR HAND 3V [...] (see HPI) Psych (no depression, anxiety) Gerardo Holder MD documented in this encounterMercy Health [facility]field Hospital07-30-2024 History of Present illness Narrative* Sher Hollingsworth APRN.CRIBBER - 01/27/2024 2:00 PM EDT SUBJECTIVE Katie Forde is a 23 year old female here today for a check up on her medical problems. Chief Complaint Patient presents with: Results: discuss A1C results HPI Katie Forde is a 23 year old female. She is an established patient of Kate Silva MD. Here today for concerns of lab results that jacket changer checked. Recent ultrasound noted Adenomyosis. Labs checked [...] diagnosis) - New diagnosis - Start dulaglutide (Trulicity) - Blood glucose monitoring on a once [...] cessation, blood pressure goals, cholesterol goals, what sqvfdvrodxL5m means and what their goals are, how [...] (around 02/24/2024) for recheck on new medication.. Sher Hollingsworth APRN-MERLIN documented in this encounterMercy Health [facility]field Hospital07-29-2024 Telephone encounter Note * Telephone Encounter - Pat Ferrer APRN.CNP - 01/26/2024 10:21 AM EDT Spoke with pt regard her labs. A1c 6.6, instructed her to call her PCP for further follow up. D/C provera and ordered Selma Discussed risk of miscarriage due to diabetes and the importance of weight loss and control blood sugar for . Pat Ferrer APRN.CNP [facility]07-29-2024 Miscellaneous Notes* Telephone Encounter - Pat Ferrer APRN.CNP - 01/26/2024 10:21 AM EDT Spoke with pt regard her labs. A1c 6.6, instructed her to call her PCP for further follow up. D/C provera and ordered Selma Discussed risk of miscarriage due to diabetes and the importance of weight loss and control blood sugar for . Pat Ferrer APRN.CNP documented in this encounterMercy Health Fairfield Hospital07-26-2024 Note Indication Evaluation of abnormal uterine bleeding: [...] adenomyosis. Recommendations Clinical correlation is recommended. 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 Please see full report under the Imaging tab in Epic for details. Georgia Millan MD documented in this encounterMercy Health Fairfield Hospital07-12-2024 Telephone encounter Note * Telephone Encounter - [...] 12, 2024. Authorizing Provider: KATE SILVA MD [facility]07-12-2024 Miscellaneous Notes* Telephone Encounter - Kate Silva [...] 09, 2024 10:54 AM documented in this encounterMercy Health Fairfield Hospital07-12-2024 Telephone encounter Note * Telephone Encounter - [...] Fregoso LPN January 09, 2024 1:54 PM [facility]07-12-[facility]24 Telephone encounter Note* Telephone Encounter - Marcia [...] Marcia Faulkner January 09, 2024 10:54 AM [facility]06-24-[facility] Instructions* Patient Instructions* Kera Joseph APRN.CRIBBER - 12/22/2023 5:36 PM EDT ASSESSMENT/PLAN: 1. Foot injury, left, initial encounter - ICD9: 959.7, ICD10: S99.922A - XR FOOT GENERAL 3V AP/LAT/OBL LEFT RESULT: No acute fracture or dislocation. Joint spaces are maintained. IMPRESSION: No acute osseous abnormality. Software Validation Technician: SILVIANO Transcribe Date/Time: Dec 22 2023 4:56P [...] Discussed expected course of illness Kera Joseph APRN.MERLIN Simmons. The general care of your injury includes [...] pillows when lying down. documented in this encounterMercy Health Fairfield Hospital06-24-2024 History of Present illness Narrative* Natalie Calzada RT(R) - 12/22/2023 4:50 PM EDT Radiology [...] PATIENT PRESENTS WITH AN IMPLANTABLE OR ATTACHED CARPENTER REFRIGERATOR: No RADIOLOGY DEPARTMENT: General X-ray: Exam(s) Completed: Lower Extremity X- Ray(s): Foot, Left PERIPHERAL IV DATA: Not applicable SIGNED BY: RT Casimiro(R) December 22, 2023 4:44 PM documented in this encounterMercy Health Fairfield Hospital06-24-2024 History of Present illness Narrative* Kera Joseph APRN.CRIBBER - 12/22/2023 4:45 PM EDT Subjective Pain [...] are maintained. IMPRESSION: No acute osseous abnormality. Software Validation Technician: SILVIANO Transcribe Date/Time: Dec 22 2023 4:56P [...] Discussed expected course of illness Kera Joseph APRN.CRIBBER documented in this encounterMercy Health Fairfield Hospital06-19-2024 History of Present illness Narrative* Natalie Calzada RT(R) - 12/17/2023 9:40 AM EDT Radiology [...] PATIENT PRESENTS WITH AN IMPLANTABLE OR ATTACHED CARPENTER REFRIGERATOR: No RADIOLOGY DEPARTMENT: General X-ray: Exam(s) Completed: Upper Extremity X- Ray(s): Hand, right PERIPHERAL IV DATA: Not applicable SIGNED BY: RT Casimiro(R) December 17, 2023 9:46 AM documented in this encounterMercy Health Fairfield Hospital06-19-2024 History of Present illness Narrative* DonatoaryaTerrence orozcoHARLAN.CRIBBER - 12/17/2023 9:26 AM EDT This note was created using Armorize Technologiesriter. Subjective Katie Forde is a 22 year [...] she was agreeable. Patient will continue use silf-rho-ngbfmeq pain medication as needed. - XR HAND GENERAL 3V PA/LAT/OBL RIGHT - CONSULT PANEL TO ORTHOPAEDICS Terrence Hill APRN.MERLIN documented in this encounterMercy Health Fairfield Hospital06-18-2024 Telephone encounter Note * Telephone Encounter - Rose Carmona RN - 12/16/2023 8:51 AM EDT Reviewed Medication list and seen Ordered On: 4Discontinued On: 12/15/2023 New RX for Diflucan pending. Rose Carmona RN [facility]06-18-2024 Miscellaneous Notes* Telephone Encounter - Rose Carmona RN - 12/16/2023 8:51 AM EDT Reviewed Medication list and seen Ordered On: 4Discontinued On: 12/15/2023 New RX for Diflucan pending. Rose Carmona RN documented in this encounterMercy Health [facility] Hospital06-17-2024 Telephone encounter Note * Telephone Encounter - [...] Please advise. Thank you. Karen Urias LPN. [facility]06-17-2024 Miscellaneous Notes* Telephone Encounter - Karen Urias [...] you. Karen Urias LPN. documented in this encounterMercy Health Fairfield Hospital06-17-2024 Nurse Note* Kierra Byrd MA - 12/15/2023 [...] Byrd MA December 15, 2023 1:31 PM [facility]06-17-[facility] Nurse Note* Kierra Byrd MA - 12/15/2023 [...] 15, 2023 1:31 PM documented in this encounterMercy Health Fairfield Hospital06-17-2024 History of Present illness Narrative* Sher Hollingsworth APRN.CRIBBER - 12/15/2023 1:04 PM EDT SUBJECTIVE Katie [...] ear with 100% occlusion, irrigated per support teacher and then manual removal of 80%of wax, [...] for Keep next scheduled appointment.. Sher Hollingsworth APRN-CRIBBER documented in this encounterMercy Health Fairfield Hospital06-17-2024 Telephone encounter Note * Telephone Encounter - Francisca Hernandez RN - 12/15/2023 11:09 AM EDT Patient notified and voiced understanding. Francisca Hernandez RN [facility]06-17-2024 Miscellaneous Notes* Telephone Encounter - Francisca Hernandez RN - 12/15/2023 11:09 AM EDT Patient notified and voiced understanding. Francisca Hernandez RN * Telephone Encounter - Rose Carmona RN - 12/15/2023 8:31 AM EDT Left message for patient to call office. Rose Carmona RN * Telephone Encounter - Pat Ferrer APRN.CNP - 12/15/2023 7:07 AM EDT +yeast, Diflucan sent. Pat Ferrer APRN.CNP documented in this encounterMercy Health [facility] Hospital06-17-2024 Telephone encounter Note * Telephone Encounter - Rose Carmona RN - 12/15/2023 8:31 AM EDT Left message for patient to call office. Rose Carmona RN [facility]06-17-2024 Telephone encounter Note* Telephone Encounter - Pat Ferrer APRN.CNP - 12/15/2023 7:07 AM EDT +yeast, Diflucan sent. Pat Ferrer APRN.CNP [facility]06-14-2024 History of Present illness Narrative* Pat Ferrer APRN.CNP - 12/12/2023 12:35 PM EDT Compounder offered: Patient declines. Katie Forde is a [...] external genitalia normal, normal Bartholin's glands, urethra, Bayfront's glands, no vulvar lesions, no cervical lesions, [...] Level: 3 - Low documented in this encounterMercy Health [facility]field Hospital06-13-2024 Telephone encounter Note * Telephone Encounter - [...] 28, 2023. Authorizing Provider: KATE SILVA MD [facility]06-13-2024 Miscellaneous Notes* Telephone Encounter - Kate Silva [...] 10, 2023 3:24 PM documented in this encounterMercy Health Fairfield Hospital06-12-2024 Telephone encounter Note * Telephone Encounter - [...] Recinos LPN December 10, 2023 3:24 PM [facility]06-04-2024 History of Present illness Narrative* Marielena West APRN.CRIBBER - 12/02/2023 12:21 PM EDT Patient came [...] will take her today. documented in this encounterMercy Health Fairfield Hospital05-21-2024 History of Present illness Narrative* Gaurav Tavarez - 11/18/2023 11:01 AM EDT CMN RECEIVED BY [employer] VIA FAX, COMPLETED, AND PLACED IN PROVIDER MAILBOX FOR SIGNATURE Gaurav Tavarez 11/18/23 [place] SENDING CMN: Mahi SIGNED AND DATED CMN, FAXED TO DME & CONFIRMATION PAGE RECEIVED: 11/28/23 documented in this encounterMercy Health Fairfield Hospital05-17-2024 Telephone encounter Note * Telephone Encounter - [...] Please advise. Thank you. Negin Recinos LPN. [facility]05-17-2024 Miscellaneous Notes* Telephone Encounter - Negin Recinos [...] you. Negin Recinos LPN. documented in this encounterMercy Health Fairfield Hospital05-14-2024 NoteHNO ID: [id number] Author: JOEL BAI RN Service: ? Author Type: Registered Nurse Type: Progress Notes Filed: 11/11/2023 16:29 Note Text: CBC, [facility]Southern [facility] History of Present illness Narrative* Joel Bai RN - 11/11/2023 4:26 PM EDT CBC, INR ordered documented in this encounterMercy Health Fairfield Hospital04-24-2024 History of Present illness Narrative* Estrellita Molina [...] which included preparing to see the patient, yqaf-ct-lqzr patient care, completing clinical documentation, obtaining and/or reviewing separately obtained history, performing a medically appropriate examination, counseling and educating the pat ient/family/caregiver, ordering medications, tests, or procedures, communicating with other HCPs (not separately reported), independently interpreting results (not separately reported), communicatingresults to the patient/family/caregiver, and care coordination (not separately reported). Estrellita Molina PA-C October 22, 2023 1:16 PM documented in this encounterMercy Health Fairfield Hospital04-11-2024 History of Present illness Narrative* Aria Russell PA - 10/09/2023 11:48 AM EDT This note was created using Netlistter. Subjective Katie Forde is a 22 year [...] eat and drink.She has not tried anything vfet-oyh-mvbgfng for her symptoms. Her mom was recently [...] ER evaluation. ADITYA Swann documented in this encounterMercy Health Fairfield Hospital03-19-2024 History of Present illness Narrative* Kate Silva MD - 09/16/2023 11:52 AM EDT This note was created using Netlistter. Subjective Katie Forde is a 22 year [...] practitioner who could do Botox injections in [place] so would not have to travel far out of [place] for treatment. - We will monitor the [...] aid in quitting vaping. Note drafted by [email or web address].[email or web address] Online Scheduling. Note reviewed, edited, and signed by the visit provider. documented in this encounterMercy Health Fairfield Hospital03-14-2024 Instructions* Patient Instructions* Pat Ferrer APRN.CNP - 09/11/2023 10:23 AM EDT Boric acid suppositories use 1 nightly for 14 nights, then 1 weekly during Diflucan treatment. documented in this encounterMercy Health Fairfield Hospital03-14-2024 History of Present illness Narrative* Pat Ferrer [...] year and multiple treatments with Diflucan and whfy-syy-xxmihjn's. OB History T0 L0 SAB0 IAB0 Ectopic0 Multiple0 Live Births0 Manufacturing Helper History LMP: 07/17/2023 (Exact Date), Having periods Age at Menarche: Age at First : Age at Menopause: Manufacturing Helper History Comments: Sexual Activity: Not Currently; [...] external genitalia normal, normal Bartholin's glands, urethra, Bayfront's glands, no vulvar lesions, no cervical lesions, [...] intercourse to maintain pH balance. Pat Ferrer APRN.CNP Medical Decision Making: Problems: Moderate: 1+ chronic illnesses with change Data: Unique test(s) ordered: 2 Risk: Moderate: Drug management Medical Decision Making Level: 4 - Moderate documented in this encounterMercy Health [facility]02-19-2024 History of Present illness Narrative* Los Barber [...] 0.9% 10 mL injection (DEFINITY) INTRAVENOUS DIRECTED Santi James MD sodium chloride 0.9 % (flush) 10 mL (BD POSIFLUSH) 10 mL INTRAVENOUS DIRECTED Santi James MD OBJECTIVE: BP 110/80 Pulse 115 Temp [...] My Chart. MDM: Patient presented to the [facility] for viral testing. Katie Forde has symptoms [...] A/B & RSV NAAT, ROUTINE Los Barber APRN.CRIBBER documented in this encounterMercy Health Fairfield Hospital02-14-2024 Miscellaneous Notes* Telephone Encounter - Woody Palafox [...] dose. WOODY PALAFOX RN documented in this encounterMercy Health Fairfield Hospital02-12-2024 Miscellaneous Notes* Addendum Note - Eboni Hardin - 08/11/2023 4:06 PM ESTAddended by: EBONI HARDIN on: 08/11/2023 04:06 PM Modules accepted: Orders documented in this encounterMercy Health Fairfield Hospital02-12-2024 History of Present illness Narrative* Los Barber APRN.CNP - 08/11/2023 12:16 PM EST SUBJECTIVE: Katie Forde is a 22 year old female. Who presents today with pain in R hand after hitting a wallover and over until her hand was swollen and bruised. This happened 3 weeks ago. [facility] [place] [facility] [place] [facility] for [...] Santi Mcallister MD OBJECTIVE: BP 110/80 Pulse 88 Temp [...] encounter - ICD9: V58.89, 923.20, ICD10: S60.221D oLs Barber APRN.CRIBBER documented in this encounterMercy Health Fairfield Hospital02-12-2024 History of Present illness Narrative* Nicolle Hopson MD - 08/11/2023 10:48 AM EST Compounder offered: Patient accepts, visit chaperoned by Zohreh [...] external genitalia normal, normal Bartholin's glands, urethra, Bayfront's glands, no vulvar lesions, no cervical lesions, [...] patient. Nicolle Hopson MD documented in this encounterMercy Health Fairfield Hospital01-17-2024 History of Present illness Narrative* Gopal Yanez [...] MD July 16, 2023 documented in this encounterMercy Health Fairfield Hospital12-08-2023 Instructions* Patient Instructions* Kate Silva MD - 06/06/2023 4:29 PM EST Start Paxil (paroxetine) at half pill daily for 1 to 2 weeks then increase to whole tablet as needed as tolerated. If after 1 month the 20 mg is not adequate, we can increase dose to either 30 or 40 mg daily. documented in this encounterMercy Health Fairfield Hospital12-08-2023 History of Present illness Narrative* Kate Silva MD - 06/06/2023 4:20 PM EST This note was created using Armorize Technologiesriter. Subjective Katie Forde is a 22 year [...] for depression) and is hyperactive (Treated by metrology engineer; current meds effect victorino). Objective BP 112/72 Pulse 108 Temp 36.4 [...] management. Kate Silva MD documented in this encounterMercy Health Fairfield Hospital11-20-2023 Miscellaneous Notes* Telephone Encounter - Kate Silva [...] Thank you. NARA Rooney. documented in this encounterMercy Health Fairfield Hospital11-16-2023 Miscellaneous Notes* Telephone Encounter - Rebeca Foley APRN.CNP - 05/15/2023 10:39 AM EST Spoke with patient. Offered vaginal suppository. Declines. Will proceed with x 1 Diflucan that was called in. Discussed PROS/CONS of medicines. Encouraged patient to follow up with [facility] * Telephone Encounter - Janny Montoya [...] MA * Telephone Encounter - Yared Servin APRN.CNP - 05/15/2023 7:12 AM EST Please notify that only positive on lab was yeast, diflucan sent to pharmacy. F/u with pcp or ob ifs/s persist. documented in this encounterMercy Health Fairfield Hospital11-15-2023 History of Present illness Narrative* Marielena West APRN.MERLIN - 05/14/2023 11:48 AM EST CC: [...] symmetric Physical Exam Exam conducted with a internal auditor present. Constitutional: Appearance: Normal appearance. Pulmonary: Effort: [...] - of each month^Disp: 10 tablet^Rfl: 11 (Patient [...] Patient agreeable to treatment plan. Marielena West APRN.CNP documented in this encounterMercy Health Fairfield Hospital10-30-2023 History of Present illness Narrative* Rebeca Chinchilla [...] 28, 2023 1:58 PM documented in this encounterMercy Health Fairfield Hospital10-24-2023 Instructions* Patient Instructions* Zuleika Avalos PA-C - 04/22/2023 10:26 AM EDT - Start over there counter probiotic with at least 15 billion live cultures, 10+ strains - Drink around 64 oz water daily - Benefiber daily: 2 teaspoons added to 8 ounces of water up to 3 times daily. documented in this encounterMercy Health Fairfield Hospital10-24-2023 History of Present illness Narrative* Zuleika Avalos [...] which included preparing to see the patient, ldgh-jh-owzp patient care, completing clinical documentation, obtaining and/or reviewing separately obtained history, performing a medically appropriate examination, counseling and educating the pat ient/family/caregiver, and ordering medications, tests, or procedures. Zuleika Avalos PA-C April 22, 2023 10:29 AM documented in this encounterMercy Health Fairfield Hospital10-19-2023 History of Present illness Narrative* Rebeca Chinchilla RDMS - 04/17/2023 11:30 AM EDT Radiology Service Progress Note PATIENT NAME: Katie Frode DATE OF SERVICE: April 17, 2023 TIME: [...] 17, 2023 2:18 PM documented in this encounterMercy Health Fairfield Hospital10-18-2023 Miscellaneous Notes* Telephone Encounter - Fernanda Galindo [...] Thank you. NARA Rooney. documented in this encounterMercy Health Fairfield Hospital10-11-2023 History of Present illness Narrative* Kelly Nunez APRN.WOO - 04/09/2023 1:33 PM EDT Katie Forde [...] any recent changes in health or medications. Manufacturing Helper History LMP: 01/17/2023, Having periods Age at Menarche: Age at First : Age at Menopause: Manufacturing Helper History Comments: Sexual Activity: Not Currently; [...] daily. for the 07-09 of each month methylphenidate (RITALIN) 20 mg [...] care Kelly Nunez APRN.CNM documented in this encounterMercy Health Fairfield Hospital09-21-2023 Instructions* Patient Instructions* Keeley Severino APRN.CRIBBER - 03/20/2023 11:28 AM EDT Amoxicillin as [...] on the other side. documented in this encounterMercy Health Fairfield Hospital09-21-2023 History of Present illness Narrative* Keeley Severino APRN.CNP - 03/20/2023 11:20 AM EDT Subjective The history is provided by the patient and a friend. No broomcorn thresher was used. HPI Katie Forde is a [...] have confirmed and edited as necessary, the [facility] Review of Systems Constitutional: Negative for chills [...] indetail warranting prompt ER evaluation. Keeley Severino APRN.CRIBBER' documented in this encounterMercy Health Fairfield Hospital09-19-2023 Miscellaneous Notes* Telephone Encounter - Roseanna Dumont LPN - 03/18/2023 4:05 PM EDT Pt scheduled for 04/09/23 at 1:30 with MANDA. Roseanna Dumont LPN * Telephone Encounter - Suyapa Recinos MD - 03/18/2023 12:41 PM EDT Needs appointment, doesn't have to be w/ me. Suyapa Recinos MD * Telephone Encounter - Roseanna Dumont LPN - 03/17/2023 11:48 AM EDT Please see pt's 3Nodt message and further advise. Pt is aware that you are out of the office until 03/18/23. Roseanna Dumont LPN documented in this encounterMercy Health Fairfield Hospital09-12-2023 Miscellaneous Notes* Telephone Encounter - Karen Urias [...] you. Karen Urias LPN documented in this encounterMercy Health Fairfield Hospital09-12-2023 Miscellaneous Notes* Telephone Encounter - Karen Urias [...] you. Karen Urias LPN documented in this encounterMercy Health Fairfield Hospital08-29-2023 Instructions* Patient Instructions* Hailey Jett MD - 02/25/2023 2:02 PM EDT ESTEBAN: -Increase from 5-10 cm H2O to 5-15 cmH2O. - Remember to clean your mask and equipment regularly, as directed. - You should be eligible for new supplies approximately every 3-6 months, depending on your insurance coverage. Contact your [employer] (DME) company for new supplies as needed. - Follow up in 2-3 months with Hailey Jett MD or my associates. [facility] REQUIREMENTS: - Your insurance requires a bpnb-nd-kztx follow up visit within a 31-90 day [...] treatment, there are resources available at the [facility] such as a nutrition consultation or referral to weight management programs at our [facility]. Please let us know if we can [...] as instructed by the respiratory therapist with [facility] [employer]. Attach one end of your 6-foot tubing [...] mask and headgear as instructed by the fiber technologist or respiratory therapist. The mask should [...] thoroughly and dry with paper towels. Avoid audiologist that contain fragrance or conditioners, as these [...] machine still fails to operate, please call [phone] or your home care company for assistance. [...] to last 9-12 months. Refer to the intermodal owner operator truck driver s manual for more information. Important Safety [...] follow to watch a PAP education video: http://my.[facility].org/home_care/services/home_respiratory_therapy.aspx http://www.youtube.com/watch?v=peJ_epDGzEw http://my.[facility].org/neurological_institute/dvqyj-hlrlkppch-ubflhf/[facility]-services/pap-therapy.aspx documented in this encounterMercy Health Fairfield Hospital08-29-2023 History of Present illness Narrative* Hailey Jett MD - 02/25/2023 1:51 PM EDT Images from the original note were not included. [facility] Virtual Visit Follow up/ Established patient visit Date of last visit : Visit date not found I have communicated my name and active licensure. The patient's identity and physical location wereverified at the time of this visit. Either the patient or their legal brand representative has been informed of the risks [...] (5cmh2o) mild esteban -we will ask the comb winder to schedule with anybody in sleep medicine. Per patient preference, I MyChart message her regarding her results, I ordered AutoPap 5-10 cm H2O.77 Pieces. SLEEP APNEA Sleep apnea type : ESTEBAN, Most Recent Apnea-Hypopnea Index (AHI): RDI 9.8, AHI 5.8 Treatment : PAP therapy [employer] PAP History: Uses AutoPAP for 8 [...] or near accidents due to drowsy drivin [place] Sleepiness Scale 09/04/2022 11/08/2022 02/24/2023 Score 9 [...] with Hailey Jett MD or my associates. [facility] REQUIREMENTS: - Your insurance requires a youu-pd-qgqn follow up visit within a 31-90 day [...] Jett MD Staff, Sleep Disorders Center Appt: [phone] Opt 5 Mail: [address] [place] [address] I spent a total of 30 minutes on the date of the service which included preparing to see the patient, uqku-tf-fujf patient care, completing clinical documentation, obtaining and/or reviewing separately obtained history, performing a medically appropriate examination, counseling and educating the pat ient/family/caregiver, and ordering medications, tests, or procedures. Activity Duration Current session 22 minutes Total time: 22 minutes* *Based only on time spent in the patient's chart documented in this encounterMercy Health Fairfield Hospital08-23-2023 Miscellaneous Notes* Telephone Encounter - Harsh Sahni MA - 02/19/2023 9:12 AM EDT Images from the original note were not included. documented in this encounterMercy Health Fairfield Hospital08-04-2023 History of Present illness Narrative* John Paul Saldaña - 01/31/2023 8:21 AM EDT CMN RECEIVED BY [employer] VIA FAX, COMPLETED, AND PLACED IN PROVIDER MAILBOX FOR SIGNATURE John Paul Saldaña, Administration Assistance 01/31/23 [employer] SENDING CMN: Mahi SIGNED AND DATED CMN, FAXED TO [employer] & CONFIRMATION PAGE RECEIVED: 02/06/23 documented in this encounterMercy Health Fairfield Hospital08-01-2023 History of Present illness Narrative* 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 APRN.CEMENT FINISHER - 01/28/2023 1:40 PM EDT SUBJECTIVE: COVID-19 [...] to discuss sleep study results. Gastroenterology, Zuleika CHEEK, last seen 07/2022 regarding fatty liver. Biopsy completed butnot adequate, repeat endorse but declined. She noted fatigue. Vitamin D deficiency noted, repletionendorsed. She was referred to knee bolter for chronic platelet and white blood cell [...] Was previously effective. She notes using Aleve seme-cay-mglojtw and hemp cream along with sleep helps [...] noted. Helps with concentration. Previously prescribed by metrology engineer, Dr. Smalls. Some rare heartburn noted, taking [...] Wt 135.2 kg (298 lb) LMP 01/17/2023 PfS969% BMI 38.26 kg/m Physical Exam Vitals and [...] Kate Silva MD - establish 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 APRN.CEMENT FINISHER Medical Decision Making: Problems: Moderate: 2+ stable chronic illnesses Risk: Moderate: Drug management Medical Decision Making Level: 4 - Moderate documented in this encounterMercy Health Fairfield Hospital07-17-2023 Miscellaneous Notes* Telephone Encounter - Marci Lynch LPN - 01/13/2023 4:05 PM EDT Pap order faxed to [facility] with demographics, office notes with confirmation. documented in this encounterMercy Health Fairfield Hospital07-17-2023 History of Present illness Narrative* Gopal Yanez [...] which included preparing to see the patient, geuc-fv-pges patient care, completing clinical documentation, obtaining and/or reviewing separately obtained history, performing a medically appropriate examination, counseling and educating the pat ient/family/caregiver, ordering medications, tests, or procedures, independently interpreting results (not separately reported), and communicating results to the patient/family/caregiver. Electronically Signed: Gopal Yanez MD January 13, 2023 2:31 PM documented in this encounterMercy Health Fairfield Hospital07-17-2023 Miscellaneous Notes* Telephone Encounter - Zelalem Forde Ma - 01/13/2023 2:06 PM EDT Pending. documented in this encounterMercy Health Fairfield Hospital07-17-2023 History of Present illness Narrative* Hailey Jett MD - 01/13/2023 9:45 AM EDT S/p PAP titration ORDERED Autopap to dme H[facility] documented in this encounterMercy Health Fairfield Hospital07-15-2023 Miscellaneous Notes* Telephone Encounter - Jeannette Arvizu LPN - 01/11/2023 9:48 AM EDT Patient notified. Verbalized understanding. * Telephone Encounter - Aria Russell PA - 01/11/2023 8:05 AM EDT Please let patient know she was positive for yeast. She is already prescribed Diflucan. Take as prescribed. documented in this encounterMercy Health Fairfield Hospital07-14-2023 History of Present illness Narrative* Aria Russell PA - 01/10/2023 12:02 PM EDT This note was created using Armorize Technologiesriter. Subjective Katie Forde is a 22 year [...] nursing note reviewed. Exam conducted with a internal auditor present. Constitutional: General: She is not in [...] ER evaluation. ADITYA Swann documented in this encounterMercy Health Fairfield Hospital07-13-2023 Miscellaneous Notes* Telephone Encounter - Kate Silva [...] you. Jeannette Arvizu LPN documented in this encounterMercy Health Fairfield Hospital07-01-2023 NoteHNO ID: [id number] Author: Vince Pastrana Trainee Service: ? Author Type: ? Type: Progress Notes Filed: 12/28/2022 2:23 AM Note Text: Sleep Study Check-In Documentation Date: December 28, 2022 Name: Katie Forde Patient was accompanied by Self. Location: [place] Latex allergy: No Tape allergy: No Current [...] with their ordering provider regarding test results [facility]Mer[facility]07-[facility]-2023 History of Present illness Narrative* [facility] Trainee - 12/28/2022 2:20 AM EDT Sleep Study Check-In Documentation Date: December 28, 2022 Name: Katie Forde Patient was accompanied by Self. Location: [place] Latex allergy: No Tape allergy: No Current [...] with their ordering provider regarding test results [facility] documented in this encounterMercy Health Fairfield Hospital06-27-2023 Miscellaneous Notes* Telephone Encounter - Giulia Vo RN - 12/24/2022 5:24 PM EDT Called and the below results reviewed with the patient. Giulia Vo RN * Telephone Encounter - Giulia Vo RN - 12/24/2022 5:19 PM EDT Images from the original note were not included. Rebeca Gonzalez APRN.CRIBBER [facility] Cardiology Pool 2 hours ago (2:28 PM) Monitor looks good. No significant arrhythmia. Echocardiogram looks good. She has normal structure and function. Thank you, Rebeca Gonzalez APRN.CRIBBER * Telephone Encounter - Giulia Vo RN - 12/24/2022 2:14 PM EDT Patient asking for Echo and Zio results. Giulia Vo RN documented in this encounterMercy Health Fairfield Hospital06-27-2023 History of Present illness Narrative* Kera Joseph APRN.MERLIN - 12/24/2022 2:54 PM EDT Subjective Sore [...] illness Kera Joseph APRN.CNP documented in this encounterMercy Health Fairfield Hospital06-27-2023 Instructions* Patient Instructions* Kera Joseph APRN.CNP - 12/24/2022 2:53 PM [...] expected course of illness Kera Joseph APRN.CNP OTITIS MEDIA GENERAL INFORMATION: Otitis media is [...] even if the symptoms go away. 2. Breu-nwn-oqtsvhw pain medication may be taken or other [...] or mouth and then touchesanother person directly (xxih-yy-xctw contact) or indirectly (arcr-pr-udgrio, such as doorknob, telephone, toys). It is [...] swallowing or breathing Excessive drooling in an infant or young child Temperature ?101 F or [...] every four months on our web site (www.[employer].[facility]/patients). Information below was obtained from Up to date Last literature review version 19.2: October 2010 This topic last updated: February 14, 2010 documented in this encounterMercy Health Fairfield Hospital05-12-2023 Instructions* Patient Instructions* Hailey Jett MD - [...] treat mild obstructive sleep apnea. More at: [facility] [employer] - PAP titration to evaluate for effectiveness [...] the central scheduling system for the [facility] at [phone]. [employer] now offers direct scheduling for patients to schedule appointments. Virtual visits are also available. If not covered by your insurance, there is a 35% discount. Please contact your insurance to determine coverage. Call the office at [phone], option #5 for questions. May use Message My Doc through My Chart for questions. May use My Chart Refills for refill requests. [facility] website: [facility].org/sleep documented in this encounterMercy Health Fairfield Hospital05-12-2023 History of Present illness Narrative* Hailey Jett MD - 11/08/2022 4:18 PM EDT Images from the original note were not included. [facility] Follow up/ Established patient visit Date of last visit : 09/06/2022 I have communicated my name and active licensure. The patient's identity and physical location wereverified at the time of this visit. Either the patient or their legal brand representative has been informed of the risks [...] 7 hours. She does take naps. Frequency: 01/03, Duration: 2-3h. Naps are sometimes refreshing. PATIENT-ENTERED QUESTIONNAIRE SLEEP SCORES Sleep Questions 11/08/2022 Reason for visit: Sleep apnea, Excessive daytime sleepiness Average hours slept in 24 hours: 7 Accidents or near accidents due to drowsy drivin [place] Sleepiness Scale 09/04/2022 11/08/2022 Score 9 (No [...] Jett MD Staff, Sleep Disorders Center Appt: [phone] Mail: [address] [place] [address] Activity Duration Current session 21 minutes Total time: 21 minutes* *Based only on time spent in the patient's chart documented in this encounterMercy Health Fairfield Hospital05-09-2023 Miscellaneous Notes* Result Encounter Note - 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 APRN.CNS - 11/05/2022 4:29 PM EDT Spirometry is normal, not a significant bronchodilator response documented in this encounterMercy Health Fairfield Hospital05-09-2023 History of Present illness Narrative* GIRMA Alfredo - 11/05/2022 11:31 AM EDT PULM FUNCTION SMARTBLOCK: Provider: 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 APRN.CNS Assisting Tech: GIRMA Alfredo Spirometry w/BD: 1 documented in this encounterMercy Health Fairfield Hospital05-08-2023 History of Present illness Narrative* Rebeca Foley APRN.CRIBBER - 11/04/2022 12:44 PM EDT This note was created using [employer] Technologiesriter. Subjective Katie Forde is a 21 year [...] history is provided by the patient. No broomcorn thresher was used. Cough This is a new [...] if symptoms persist or worsen. Rebeca Foley APRN.CRIBBER documented in this encounterMercy Health Fairfield Hospital05-04-2023 NoteHNO ID: [id number] Author: IGNACIO Ariza Service: Radiology Author Type: Plant Biology Professor Type: Progress Notes Filed: 10/31/2022 1:31 PM [...] BY: IGNACIO Ariza October 31, 2022 1:31 PMSelect Medical Specialty Hospital - [id number] Miscellaneous Notes* Addendum Note - 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 APRN.CNS - 10/28/2022 2:03 PM EDTAddended by: DEMI ALFONSO on: 10/28/2022 02:03 PM Modules accepted: Orders documented in this encounterMercy Health Fairfield Hospital05-01-2023 Instructions* Patient Instructions* 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 APRN.CNS - 10/28/2022 1:31 PM EDT Start taking topiramate once daily for headache prevention Avoid use of spray on antiperspirant that is causing shortness of breath. documented in this encounterMercy Health Fairfield Hospital05-01-2023 History of Present illness Narrative* 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 [...] deficiency noted, repletionendorsed. She was referred to knee bolter for chronic platelet and white blood cell [...] Was previously effective. She notes using Aleve bxng-nem-kyxsacg and hemp cream along with sleep helps [...] medications. No adverse effects noted. Previously prescribedby metrology engineer, Dr. Smalls. Review of Systems Respiratory: Positive [...] F90.2 History of treatment for ADD per metrology engineer, continue unchanged for now. - METHYLPHENIDATE 20 [...] gym. 3 mo follow up 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 APRN.CEMENT FINISHER 6 mo follow up Kate Silva MD - establish 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 APRN.CNS Medical Decision Making: Problems: Moderate: 2+ stable chronic illnesses Risk: Moderate: Drug management Medical Decision Making Level: 4 - Moderate documented in this encounterMercy Health Fairfield Hospital04-15-2023 History of Present illness Narrative* Selene Lazar-T - 10/12/2022 4:43 AM EDT Sleep Study Check-In Documentation Date: October 12, 2022 Name: Katie Forde Patient was accompanied by Significant other. Location: [place] Latex allergy: No Tape allergy: Yes Current medications were reviewed with the patient:Yes Sleep aid taken by patient for the sleep study: Banquete of sleep aid: Not Applicable Procedure was [...] results Selene De León documented in this encounterMercy Health Fairfield Hospital04-13-2023 Miscellaneous Notes* Telephone Encounter - Antonio Smalls [...] Last ADHD / Med Check visit: 03/12/22 (PPDai message sent that patient overdue for med [...] 04/09/2022 Eden Mcgee RN documented in this encounterMercy Health Fairfield Hospital04-12-2023 Miscellaneous Notes* Telephone Encounter - Shukri Duenas [...] 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 documented in this encounterMercy Health Fairfield Hospital04-12-2023 Miscellaneous Notes* Telephone Encounter - Kierra Mahmood Ma - 10/09/2022 11:13 AM EDT Patient phones requesting refills as follows: Requested Prescriptions Pending Prescriptions Disp Refills omeprazole (PRILOSEC) 20 mg capsule 30 capsule 5 Sig: Take 1 capsule by mouth once daily. Kierra Mahmood CMA documented in this encounterMercy Health Fairfield Hospital04-03-2023 History of Present illness Narrative* Santi Mcallister MD - 09/30/2022 10:43 AM EDT Images from the original note were not included. Santi Mcallister MD Interventional Cardiology [facility] [address] [place], [place] [address] [phone] Chief Complaint Patient presents with: New Patient [...] DISPOSABLE PATCH INSTRUCTIONS Patient Name: Katie Forde [facility] Number: [id number] Skin prepped and cleansed with alcohol Patch secured to prepped area Monitor Activated Serial #: [id number] Patient Instructed: Prescribed order timeframe Bathing guidelines Usage of event button and diary documentation Return of monitor at the end of prescribed order Call with problems [phone] or [phone]. [phone] Patient expresses a good understanding of instructions Laura Brenner RN documented in this encounterMercy Health [facility] Hospital03-14-2023 Miscellaneous Notes* Telephone Encounter - Antonio Smalls [...] and punctuation that were missed on review. nAtonio Smalls M.D. * Telephone Encounter - Jo-Ann [...] 04/09/2022 Jo-Ann Carreon LPN documented in this encounterMercy Health Fairfield Hospital03-14-2023 Miscellaneous Notes* Telephone Encounter - Antonio Smalls [...] LPN - 09/09/2022 11:43 AM EDT Last WCC: greater than one [...] 04/09/2022 Jo-Ann Carreon LPN documented in this encounterMercy Health Fairfield Hospital03-13-2023 Miscellaneous Notes* Telephone Encounter - Kristin Newby RN - 09/09/2022 11:54 AM EDT Last Provera rx was sent to [facility] in [place] on 03/29/22 with 11 refills. PPDai message sent. Kristin Newby RN documented in this encounterMercy Health Fairfield Hospital03-10-2023 Instructions* Patient Instructions* Hailey Jett MD - [...] detail and any treatments options. - Call [phone] to schedule your sleep study and follow up appointment if it is not scheduled after your visit today with one of our schedulers. Sleep Nurse Practitioners: Roberta Vasquez, [facility] [address] [place] [address] [facility] [address] [place] [id number] [facility] [address] [place] [id number] Friday, Friday, Friday Appt: [phone] Rose Olivares, PhD, [facility] [address] [place] [id number] [facility] [address] [place] [address] Mondays, Tuesdays & Friday Appt: [phone] Nohemy Berry, [facility] [address] [place] [address] [facility] [address] [place] [id number] [facility] [address] [place] [address] Friday, Friday, Friday Appt: [phone] Ondina Kurtz, [facility] [address] [place] [address] [facility] [address] [place] [address] [facility] [address] [place] [address] Friday, , Friday Appt: [phone] Anna Meadows, [facility] [address] [facility] [address] [place] [address] [facility] [address] [place] [address] Friday, Friday, Friday, Friday Appt: [phone] Cherry Kay, [facility] [address] [place] [address] [facility] [address] [place] [address] Friday, Friday, Friday, Friday Appt: [phone] Any appointments can be scheduled through the central scheduling system for the [facility] [place] at [phone]. [facility] now offers direct scheduling for patients to schedule appointments. Virtual visits are also available. If not covered by your insurance, there is a 35% discount. Please contact your insurance to determine coverage. Call the office at [phone], option #5 for questions. May use Message My Doc through My Chart for questions. May use My Chart Refills for refill requests. [facility] website: [email or web address] documented in this encounterMercy Health Fairfield Hospital03-10-2023 History of Present illness Narrative* Hailey Jett MD - 09/06/2022 1:08 PM EST Images from the original note were not included. [facility] New Patient Evaluation PATIENT NAME: Katie Forde DATE OF SERVICE: September 06, 2022 CONSULTING PROVIDER: Antonio Smalls [address] [facility] [address] REASON FOR CONSULT: Antonio Smalls sends the [...] for visit: Sleep apnea, Excessive daytime sleepiness [place] Sleepiness Scale 09/04/2022 Score 9 (No daytime [...] Jett MD Staff, Sleep Disorders Center Appt: [phone] Mail: [address] [facility], [place] [address] Activity Duration Exam room 2 minutes Exam room 27 minutes Current session 1 minute Total time: 31 minutes* *Based only on time spent in the patient's chart documented in this encounterMercy Health Fairfield Hospital03-09-2023 Instructions* Patient Instructions* ADITYA Swann - 09/05/2022 [...] Dark urine. Chest pain. documented in this encounterMercy Health Fairfield Hospital03-09-2023 History of Present illness Narrative* ADITYA Swann - 09/05/2022 11:14 AM EST This note was created using Armorize Technologiesriter. Subjective Katie Forde is a 21 year [...] daily. for the 1st-10th of each month omeprazole (PRILOSEC) 20 mg [...] ER evaluation. ADITYA Swann documented in this encounterMercy Health Fairfield Hospital03-07-2023 Miscellaneous Notes* Telephone Encounter - Zuleika Harkins [...] Dianne Bender LPN * Telephone Encounter - DO Lien Womack 09/01/2022 8:58 AM EST Can let her know that the molecular testing I ordered did not reveal any evidence of an underlying lymphoproliferative disorder or myeloproliferative disorder. I see that she is being referred for sleep study. That is great. I would like to see her for an office visit with CBC in about 4 months. Russell Burris DO documented in this encounterMercy Health Fairfield Hospital03-06-2023 Miscellaneous Notes* Telephone Encounter - Tracy Carreon LPN - 09/02/2022 9:56 AM EST Patient spoke with nurse regarding results this morning. Tracy Carreon LPN documented in this encounterMercy Health Fairfield Hospital02-28-2023 Miscellaneous Notes* Telephone Encounter - More Dos Santos LPN - 08/27/2022 4:19 PM EST Two are still in process. Will contact pt after Dr Burris reviews them all. pt aware. More Dos Santos LPN * Telephone Encounter - Megha Bloom Pss - 08/27/2022 4:13 PM EST Patient requesting lab results from 08/22. documented in this encounterMercy Health Fairfield Hospital02-23-2023 History of Present illness Narrative* Russell Burris DO - 08/22/2022 3:13 PM EST Patient referred [...] edema. SKIN: No jaundice or rash. 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 No focal motor [...] 3.26 3.42 3.96 4.89 (H) 6.30 (H) Mifflin% % 8.0 7.9 4.9 6.3 5.0 Abs Mifflin <0.87 k/uL 0.85 0.76 0.55 0.74 0.90 [...] Total 6.3 - 8.0 g/dL 7.9 ASSESSMENT/PLAN: (G81.510) Leukocytosis, unspecified type (D74.309) Thrombocytosis Assessment: -The patient is a 21-year-old [...] which included preparing to see the patient, ffuj-jl-xsqk patient care, completing clinical documentation, obtaining and/or reviewing separately obtained history, performing a medically appropriate examination, counseling and educating the pat ient/family/caregiver, ordering medications, tests, or procedures, communicating with other HCPs (not separately reported), and communicating results to the patient/family/caregiver. Russell Burris DO documented in this encounterMercy Health Fairfield Hospital02-15-2023 Miscellaneous Notes* Telephone Encounter - Hemalatha Dejesus MD - 08/14/2022 2:25 PM EST Patient's request for medication is as follows: Pending Prescriptions: Disp Refills amphetamine-dextroamphetamine XR (ADDERALL*30 cap*0 Sig: Take 1 capsule by mouth every morning for 30 days. Prescription(s) as above. Please process accordingly. Hemalatha Dejesus MD * Telephone Encounter - Eden Mcgee RN - 08/14/2022 2:18 PM EST [facility] pharmacy did not have medication in stock original but [facility] now has it. She questions if a new prescription can be sent over for the Adderall XR 30mg. Order pended Eden Mcgee RN documented in this encounterMercy Health Fairfield Hospital02-08-2023 History of Present illness Narrative* Zuleika Perez [...] given scant sampling and may not be brand representative of a disease process, if present. [...] with more than 50% of the total oabo-sj-glpz time of the visit in counseling / coordination of care. I have confirmed and edited as necessary, the PFSH and ROS obtained by others. Zuleika Perez PA-C August 07, 2022 1:16 PM documented in this encounterMercy Health Fairfield Hospital02-07-2023 Miscellaneous Notes* Telephone Encounter - Antonio Smalls [...] LPN - 08/05/2022 10:39 AM EST Last WC: greater than one year ago [...] 04/09/2022 Jo-Ann Carreon LPN documented in this encounterMercy Health Fairfield Hospital01-19-2023 Miscellaneous Notes* Telephone Encounter - Arminda Montoya [...] and chlamydia. Follow-up with your PCP or inpatient pharmacist if symptoms persist. documented in this encounterMercy Health Fairfield Hospital01-10-2023 Miscellaneous Notes* Addendum Note - Arthur Joseph PA-C - 07/09/2022 3:53 PM ESTAddended by: ARTHUR JOSEPH on: 07/09/2022 03:53 PM Modules accepted: Orders documented in this encounterMercy Health Fairfield Hospital01-10-2023 History of Present illness Narrative* Arthur Joseph PA-C - 07/09/2022 3:32 PM EST This note was created using [employer]. Subjective Katie Forde is a 21 year old female. HPI Patient presents with sinus pressure and congestion and cough over the past 2 weeks. About a month ago she was seen in primary care and diagnosed with sinusitis. She was placed on amoxicillin. She states that had gotten better and then this started 2 weeks ago. No fever. She has tried multiple gjtu-upt-ltpjkko medications without relief. No vomiting or diarrhea. [...] worsen. Arthur Joseph PA-C documented in this encounterMercy Health Fairfield Hospital01-10-2023 Miscellaneous Notes* Telephone Encounter - nAtonio Smalls MD - 07/09/2022 1:29 PM EST [...] LPN - 07/09/2022 12:24 PM EST [facility] is out of the Adderall and mom is wondering if the Rx can be sent to [facility] as they have it on hand. New RX pended. Pharmacy info was updated. documented in this encounterMercy Health Fairfield Hospital01-06-2023 Miscellaneous Notes* Sedation Documentation - Keysha Dawn RN - 07/05/2022 11:12 AM EST Site assessed dressing clean dry and intact * Sedation Documentation - Keysha Dawn RN - 07/05/2022 11:[address] Hayes at bedside with pt. documented in this encounterMercy Health Fairfield Hospital01-06-2023 Surgical operation note* Brief Op Note - Mirna Hayes MD - 07/05/2022 11:12 AM EST BRIEF OPERATIVE / PROCEDURE NOTE LOG ID: [id number] SURGERY/PROCEDURE DATE: 07/05/2022 INCISION/PROCEDURE START TIME: 10:34 AM INCISION CLOSE/PROCEDURE END TIME: 11:02 AM SURGEON(S)/PROCEDURALIST(S) AND PHARMACY INTERN(S): Surgeon(s) and Role: * Mirna Hayes MD - Primary No Additional Staff SURGERY/PROCEDURE(S): Ultrasound guided random liver biopsy ANESTHESIA: Procedural Sedation FINDINGS: ESTIMATED BLOOD LOSS: minimal SPECIMENS: multiple cores COMPLICATIONS: None PRE-OP/PRE-PROCEDURE DIAGNOSIS: Hepatic steatosis POST-OP/POST-PROCEDURE DIAGNOSIS: Same as Preop SIGNATURE: Mirna Hayes MD PATIENT NAME: Katie Forde DATE: July 05, 2022 TIME: 11:12 AM documented in this encounterMercy Health Fairfield Hospital01-06-2023 History and physical note * Mirna Hayes [...] TIME: 11:11 AM PAGER: documented in this encounterMercy Health Fairfield Hospital01-05-2023 Miscellaneous Notes* Telephone Encounter - Antonio Smalls [...] - 07/03/2022 9:00 AM EST Last [facility]: greater than one year ago Last ADHD [...] fine awaiting his return documented in this encounterCleveland [id number] Miscellaneous Notes* Telephone Encounter - Kristin Newby RN - 07/02/2022 2:19 PM EST Rx for PNV was sent 05/30/22 to [facility] in [place] with 12 refills. PPDai message sent. Kristin Newby RN documented in this encounterMercy Health Fairfield Hospital12-15-2022 Miscellaneous Notes* Addendum Note - Zuleika Perez [...] [facility] Kierar Mahmood CMA * Telephone Encounter - Zuleika Perez PA-C [...] is willing to proceed. documented in this encounterMercy Health Fairfield Hospital12-14-2022 Miscellaneous Notes* Telephone Encounter - Shukri Duenas MA - 06/12/2022 8:00 AM EST Patient phones requesting refills as follows: Requested Prescriptions Pending Prescriptions Disp Refills omeprazole (PRILOSEC) 20 mg capsule 30 capsule 2 Sig: Take 1 capsule by mouth once daily. Please review and advise. Shukri Duenas MA documented in this encounterMercy Health Fairfield Hospital12-13-2022 History of Present illness Narrative* Antonio Smalls [...] ordered or obtained, is reviewed by a scale operator before being considered final. Additional recommendations may [...] been determined (based on review of the separator operator note). Therefore final conclusions regarding symptoms, natural course of the disorder, etc. cannot yet be made. I spent a total of 30-39 minutes on the date of service. This included preparing to see the patient; efua-rm-ldou patient care; obtaining and/or reviewing separately obtained history; performing a medically appropriate examination; counseling and educatingthe patient/family/caregiver; and completing clinical documentation. As applicable, this also included ordering medications, tests, or procedures; independently interpreting results; communicating results to the patient/family/caregiver; and care coordination (not separately reported). This note was partially generated using Education Everytime voice recognition system, and there may be some incorrect words, spellings, and punctuation that were not noted in checking the note before saving. Antonio Smalls M.D. documented in this encounterMercy Health Fairfield Hospital12-13-2022 Miscellaneous Notes* Telephone Encounter - Zuleika Perez PA-C - 06/11/2022 7:54 AM EST Full liver panel ordered. documented in this encounterMercy Health Fairfield Hospital12-09-2022 Miscellaneous Notes* Telephone Encounter - Antonio Smalls [...] RN - 06/07/2022 2:20 PM EST Mom [email or web address] does not have Adderall XR 30mg in stock. She questions if you can send the prescription to [facility] instead. Order pended Eden Mcgee RN documented in this encounterMercy Health Fairfield Hospital12-08-2022 Miscellaneous Notes* Telephone Encounter - Antonio Smalls [...] 20 mg to be sent to the [facility]. Megha Mcdonnell LPN documented in this encounterMercy Health Fairfield Hospital12-01-2022 Miscellaneous Notes* Telephone Encounter - Kristin Newby RN - 05/30/2022 3:51 PM EST On 03/29/22 a new rx was sent to [facility] with 11 refills. PPDai message sent to patient. 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 Earlier appts. offered-pt declined. Bleeding precautions given as well as directive from Dr West * Telephone Encounter - James West MD - 05/24/2022 4:49 PM EST I would schedule a visit for patient next week. If has heavy bleeding over the weekend would recommend ED visit. James West MD * Telephone Encounter - Roseanna Dumont [...] do. Roseanna Dumont LPN documented in this encounterMercy Health Fairfield Hospital11-10-2022 History of Present illness Narrative* Antonio Smalls MD - 05/09/2022 9:34 AM EST Rx signed while sibling at a visit. Antonio Smalls MD documented in this encounterMercy Health Fairfield Hospital11-08-2022 Instructions* Patient Instructions* Annia Hogan APRN.MERLIN - [...] in a wedge pillow. documented in this encounterMercy Health Fairfield Hospital11-08-2022 History of Present illness Narrative* Annia Hogan APRN.CNP - 05/07/2022 1:33 PM EST CHIEF COMPLAINT: Patient presents with: Heartburn: Fatigue, her body feels tingly at times. US 04/29/22 Labs 04/04/22 ER/labs 04/11/22 This consult was requested by Antonio Smalls MD for an opinion regarding heartburn. My final recommendations will be communicated to the requesting health care provider by way of the shared medical record for internal providers or letter via the [employer] for external providers. HPI: Katie [...] has been having heartburn. PAtient [facility] for [facility] pain sharp stabbing sensation. [...] which included preparing to see the patient, tpbh-ol-ohzp patient care, completing clinical documentation, obtaining and/or reviewing separately obtained history, performing a medically appropriate examination, counseling and educating the pat ient/family/caregiver, ordering medications, tests, or procedures, communicating with other HCPs (not separately reported), independently interpreting results (not separately reported), communicatingresults to the patient/family/caregiver, and care coordination (not separately reported). Annia Hogan APRN.CNP May 09, 2022 3:05 PM documented in this encounterMercy Health Fairfield Hospital11-04-2022 Miscellaneous Notes* Telephone Encounter - Roseanna Dumont LPN - 05/03/2022 7:49 AM EDT Please review pt's mychart message in RR absence. Roseanna Dumont LPN documented in this encounterMercy Health Fairfield Hospital11-01-2022 Miscellaneous Notes* Telephone Encounter - Dylan Aldridge RN - 04/30/2022 3:53 PM EDT patient notified via PingStamphart message Dylan Aldridge RN * Telephone Encounter [...] visit. This note was partially generated using Education Everytime voice recognition system, and there may be some incorrect words, spellings, and punctuation that were not noted in checking the note before saving. Antonio Smalls MD documented in this encounterMercy Health Fairfield Hospital10-31-2022 History of Present illness Narrative* Rebeca Chinchilla, KEVINFL - 04/29/2022 9:15 AM EDT Radiology Service [...] 29, 2022 9:49 AM documented in this encounterMercy Health Fairfield Hospital10-21-2022 Miscellaneous Notes* Telephone Encounter - Eden Mcgee RN - 04/19/2022 9:20 AM EDT Spoke with patient, transferred to [facility] for scheduling Eden Mcgee RN * [...] placed. This note was partially generated using Education Everytime voice recognition system, and there may be some incorrect words, spellings, and punctuation that were not noted in checking the note before saving. Antonio Smalls MD documented in this encounterMercy Health Fairfield Hospital10-20-2022 History of Present illness Narrative* Antonio Smalls [...] ordered or obtained, is reviewed by a scale operator before being considered final. Additional recommendations may [...] 1.00 - 4.00 k/uL 3.96 4.89 (H) Mifflin% % 4.9 6.3 Abs Mifflin <0.87 k/uL 0.55 0.74 Eosin% % 1.3 [...] & Units 07/03/2020 07/12/2021 COVID 19 Source RECTANGULAR TANK COOPER UPPER RESPIRATORY TRACT SWAB UPPER RESPIRATORY TRACT SWAB Influenza A PCR Negative for Influenza A by RT PCR Influenza B PCR Negative for Influenza B by RT PCR COVID 19 Result RECTANGULAR TANK COOPER Negative for COVID19 (SARS CoV2) by RT-PCR [...] Specific Question: Does consulting provider have [facility] access? Answer: Yes I spent a total of 40-54 minutes on the date of service. This included preparing to see the patient; apaf-nz-kxwp patient care; obtaining and/or reviewing separately obtained history; performing a medically appropriate examination; counseling and educatingthe patient/family/caregiver; and completing clinical documentation. As applicable, this also included ordering medications, tests, or procedures; independently interpreting results; communicating results to the patient/family/caregiver; and care coordination (not separately reported). This note was partially generated using Education Everytime voice recognition system, and there may be some incorrect words, spellings, and punctuation that were not noted in checking the note before saving. Antonio Smalls M.D. documented in this encounterMercy Health Fairfield Hospital10-07-2022 Miscellaneous Notes* Telephone Encounter - Eden Mcgee [...] evaluation. I would recommend scheduling a 30-minute nuju-aj-zmju visit. This note was created using a speech to text program. There may be some incorrect words, spellings,and punctuation that were missed on review. Antonio Smalls M.D. documented in this encounterMercy Health Fairfield Hospital10-06-2022 Miscellaneous Notes* Telephone Encounter - Antonio Smalls [...] time. This note was partially generated using Education Everytime voice recognition system, and there may be [...] months. This note was partially generated using Education Everytime voice recognition system, and there may be some incorrect words, spellings, and punctuation that were not noted in checking the note before saving. Antonio Smalls MD documented in this encounterMercy Health Fairfield Hospital09-30-2022 History of Present illness Narrative* Suyapa Recinos [...] C/o small swollen area by perineum, present mcfp. 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 Declines contraception reassured about peianal skin tag Medical Decision Making: Medical Decision Making Level: 1 - N/A Suyapa Recinos MD documented in this encounterMercy Health Fairfield Hospital09-14-2022 Miscellaneous Notes* Telephone Encounter - Eden Mcgee RN - 03/13/2022 8:58 AM EDT Left message to call the office, [employer] message also sent Eden Mcgee RN * [...] pain. This note was partially generated using Education Everytime voice recognition system, and there may be some incorrect words, spellings, and punctuation that were not noted in checking the note before saving. Antonio Smalls MD documented in this encounterMercy Health Fairfield Hospital09-13-2022 History of Present illness Narrative* Antonio Smalls [...] ordered or obtained, is reviewed by a scale operator before being considered final. Additional recommendations may [...] reestablishing care with her psychiatrist for the Abilify and Paxil. 3. We will hold off restarting Topamax as patient has difficulty with consistency regarding daily medications. If headaches worsen this will be reconsidered. 4. Podiatry referral to reestablish care due to the right foot pain. I spent a total of 30-39 minutes on the date of service. This included preparing to see the patient; bmir-sv-mdac patient care; obtaining and/or reviewing separately obtained history; performing a medically appropriate examination; counseling and educatingthe patient/family/caregiver; and completing clinical documentation. As applicable, this also included ordering medications, tests, or procedures; independently interpreting results; communicating results to the patient/family/caregiver; and care coordination (not separately reported). This note was partially generated using Education Everytime voice recognition system, and there may be some incorrect words, spellings, and punctuation that were not noted in checking the note before saving. Antonio Smalls M.D. documented in this encounterMercy Health Fairfield Hospital09-02-2022 Miscellaneous Notes* Telephone Encounter - Kera Joseph APRN.CNP - 03/01/2022 1:46 PM EDT Patient notified of bacterial growth in urine. She states she is still having frequency. Rx for Macrobid sent to pharmacy. Kera Joseph APRN.CNP documented in this encounterMercy Health Fairfield Hospital08-31-2022 Instructions* Patient Instructions* Maye Rubalcava - 02/27/2022 [...] Discussed expected course of illness Kera Joseph APRN.CRIBBER documented in this encounterMercy Health Fairfield Hospital08-31-2022 History of Present illness Narrative* Kera Joseph APRN.CNP - 02/27/2022 3:01 PM EDT Subjective [...] nursing note reviewed. Exam conducted with a internal auditor present. Constitutional: Appearance: She is obese. Cardiovascular: [...] (light brown) present. Comments: Exam performed by [employer] student with [employer] internal auditor/preceptor at bedside. Skin: General: Skin is warm [...] AMPLIFICATION - GC/CHLAMYDIA DNA DET Maye Rubalcava [employer] student - Follow-up with your PCP in 3-5 days if symptoms have not improved or sooner if symptoms worsen - Discussed red flags and need for immediate medical evaluation if any occur. - Discussed supportive care treatment with fluids, rest and analgesia. - Discussed expected course of illness TEACHING PROVIDER (Physician/PA/WARP SCOURING VAT TENDER) NOTE OF PERSONAL INVOLVEMENT IN CARE: I have personally seen and examined the patient and performed the medical decision-making components. I have reviewed the Advanced Practice Registered Nurse (WARP SCOURING VAT TENDER) Student's documentation and verified the findings in the note as written. Any additions or changes are noted in bold/italics. Signature: Kera Joseph Date: 02/27/2022 Time: 3:33 PM documented in this encounterMer[facility] Instructions* Patient Instructions* Kera Joseph APRN.MERLIN - 02/20/2022 7:22 PM EDT ASSESSMENT/PLAN: 1. Foot pain, right - ICD9: 729.5, ICD10: M79.671 (primary diagnosis) - XR FOOT GENERAL 3V AP/LAT/OBL RIGHT 2. Acute right ankle pain - ICD9: 719.47, 338.19, ICD10: M25.571 - XR ANKLE GENERAL 3V AP/LAT/OBL RIGHT IMPRESSION: RIGHT ANKLE: Within normal limits. No bone or joint abnormalities seen. RIGHT FOOT: Within normal limits. No acute findings. Software Validation Technician: SILVIANO Transcribe Date/Time: Feb 20 2022 7:11P [...] Discussed expected course of illness Kera Joseph APRN.CRIBBER R[employer]I.C.E. The general care of your injury [...] pillows when lying down. documented in this encounterMer[facility]08-24-2022 History of Present illness Narrative* Kera Joseph APRN.CNP - 02/20/2022 6:40 PM EDT Images from [...] FOOT: Within normal limits. No acute findings. Software Validation Technician: SILVIANO Transcribe Date/Time: Feb 20 2022 7:11P [...] Discussed expected course of illness Kera Joseph APRN.MERLIN documented in this encounterMer[facility]08-03-2022 Miscellaneous Notes* Telephone Encounter - Estrellita Underwood [...] UNDERWOOD PA-C * Telephone Encounter - Jo-Ann Carreon LPN - 01/30/2022 3:35 PM EDT Last WCC: greater than one [...] 03/20/2020 Jo-Ann Carreon LPN documented in this encounterMer[facility]07-08-2022 Miscellaneous Notes* Telephone Encounter - Antonio Smalls [...] RN - 01/04/2022 2:22 PM EDT Last WCC: greater than one [...] 03/20/2020 Eden Mcgee RN documented in this encounterMer[facility]06-10-2022 Miscellaneous Notes* Telephone Encounter - Hemalatha Dejesus [...] MD * Telephone Encounter - Jo-Ann Carreon WAYNE - 12/07/2021 2:31 PM EDT Last WCC: greater than one [...] 03/20/2020 Jo-Ann Carreon LPN documented in this encounterMer[facility]05-11-2022 Miscellaneous Notes* Telephone Encounter - Kishor Abdul [...] RN - 11/06/2021 2:07 PM EDT Last WC: greater than one [...] - Td or Tdap) due on 03/20/2020 Cherryle Oly RN documented in this encounterMer[facility]04-14-2022 Miscellaneous Notes* Telephone Encounter - Sp Franco [...] review. Antonio Smalls M.D. documented in this encounterMercy [facility]04-12-2022 Miscellaneous Notes* Telephone Encounter - Antonio Smalls [...] LPN - 10/09/2021 2:55 PM EDT Last WCC: greater than one [...] 03/20/2020 Jo-Ann Carreon LPN documented in this encounterMer[facility]05-23-2013 History of Past illness Narrative* Problem Noted Date Resolved Date Delayed immunizations 11/19/2012 01/23/2016 Viral warts, unspecified 06/25/2008 012 documented as of this encounter (statuses as of 10/09/2021) [facility] Narrative* Problem Noted Date Resolved Date Delayed immunizations 11/19/2012 01/23/2016 Viral warts, unspecified 06/25/2008 012 documented as of this encounter (statuses as of 10/11/2021) [facility] Narrative* Problem Noted Date Resolved Date Delayed immunizations 11/19/2012 01/23/2016 Viral warts, unspecified 06/25/2008 012 documented as of this encounter (statuses as of 11/07/2021) [facility] Narrative* Problem Noted Date Resolved Date Delayed immunizations 11/19/2012 01/23/2016 Viral warts, unspecified 06/25/2008 012 documented as of this encounter (statuses as of 12/07/2021) [facility] Narrative* Problem Noted Date Resolved Date Delayed immunizations 11/19/2012 01/23/2016 Viral warts, unspecified 06/25/2008 012 documented as of this encounter (statuses as of 01/04/2022) [facility]ative* Problem Noted Date Resolved Date Delayed immunizations 11/19/2012 01/23/2016 Viral warts, unspecified 06/25/2008 012 documented as of this encounter (statuses as of 01/31/2022) [facility]ative* Problem Noted Date Resolved Date Delayed immunizations 11/19/2012 01/23/2016 Viral warts, unspecified 06/25/2008 012 documented as of this encounter (statuses as of 02/20/2022) [facility]arrative* Problem Noted Date Resolved Date Delayed immunizations 11/19/2012 01/23/2016 Viral warts, unspecified 06/25/2008 012 documented as of this encounter (statuses as of 02/27/2022) [facility]ative* Problem Noted Date Resolved Date Delayed immunizations 11/19/2012 01/23/2016 Viral warts, unspecified 06/25/2008 012 documented as of this encounter (statuses as of 03/01/2022) [facility]ative* Problem Noted Date Resolved Date Delayed immunizations 11/19/2012 01/23/2016 Viral warts, unspecified 06/25/2008 012 documented as of this encounter (statuses as of 03/12/2022) [facility]* Problem Noted Date Resolved Date Delayed immunizations 11/19/2012 01/23/2016 Viral warts, unspecified 06/25/2008 012 documented as of this encounter (statuses as of 03/13/2022) [facility]* Problem Noted Date Resolved Date Delayed immunizations 11/19/2012 01/23/2016 Viral warts, unspecified 06/25/2008 012 documented as of this encounter (statuses as of 03/29/2022) [facility]ative* Problem Noted Date Resolved Date Delayed immunizations 11/19/2012 01/23/2016 Viral warts, unspecified 06/25/2008 012 documented as of this encounter (statuses as of 04/04/2022) [address]23-2013 History of Past illness Narrative* Problem Noted Date Resolved Date Delayed immunizations 11/19/2012 01/23/2016 Viral warts, unspecified 06/25/2008 012 documented as of this encounter (statuses as of 04/05/2022) [facility]ative* Problem Noted Date Resolved Date Delayed immunizations 11/19/2012 01/23/2016 Viral warts, unspecified 06/25/2008 012 documented as of this encounter (statuses as of 04/18/2022) [facility]* Problem Noted Date Resolved Date Delayed immunizations 11/19/2012 01/23/2016 Viral warts, unspecified 06/25/2008 012 documented as of this encounter (statuses as of 04/19/2022) [facility]* Problem Noted Date Resolved Date Delayed immunizations 11/19/2012 01/23/2016 Viral warts, unspecified 06/25/2008 012 documented as of this encounter (statuses as of 04/30/2022) [facility]ative* Problem Noted Date Resolved Date Delayed immunizations 11/19/2012 01/23/2016 Viral warts, unspecified 06/25/2008 012 documented as of this encounter (statuses as of 05/09/2022) [facility]* Problem Noted Date Resolved Date Delayed immunizations 11/19/2012 01/23/2016 Viral warts, unspecified 06/25/2008 012 documented as of this encounter (statuses as of 05/09/2022) [facility]* Problem Noted Date Resolved Date Delayed immunizations 11/19/2012 01/23/2016 Viral warts, unspecified 06/25/2008 012 documented as of this encounter (statuses as of 05/13/2022) [facility]* Problem Noted Date Resolved Date Delayed immunizations 11/19/2012 01/23/2016 Viral warts, unspecified 06/25/2008 012 documented as of this encounter (statuses as of 05/24/2022) [facility]* Problem Noted Date Resolved Date Delayed immunizations 11/19/2012 01/23/2016 Viral warts, unspecified 06/25/2008 012 documented as of this encounter (statuses as of 05/30/2022) [facility]* Problem Noted Date Resolved Date Delayed immunizations 11/19/2012 01/23/2016 Viral warts, unspecified 06/25/2008 012 documented as of this encounter (statuses as of 05/31/2022) [facility]* Problem Noted Date Resolved Date Delayed immunizations 11/19/2012 01/23/2016 Viral warts, unspecified 06/25/2008 012 documented as of this encounter (statuses as of 06/03/2022) [facility]* Problem Noted Date Resolved Date Delayed immunizations 11/19/2012 01/23/2016 Viral warts, unspecified 06/25/2008 012 documented as of this encounter (statuses as of 06/06/2022) [facility]* Problem Noted Date Resolved Date Delayed immunizations 11/19/2012 01/23/2016 Viral warts, unspecified 06/25/2008 012 documented as of this encounter (statuses as of 06/07/2022) [facility]* Problem Noted Date Resolved Date Delayed immunizations 11/19/2012 01/23/2016 Viral warts, unspecified 06/25/2008 012 documented as of this encounter (statuses as of 06/11/2022) [facility]* Problem Noted Date Resolved Date Delayed immunizations 11/19/2012 01/23/2016 Viral warts, unspecified 06/25/2008 012 documented as of this encounter (statuses as of 06/11/2022) [facility]* Problem Noted Date Resolved Date Delayed immunizations 11/19/2012 01/23/2016 Viral warts, unspecified 06/25/2008 012 documented as of this encounter (statuses as of 06/12/2022) [facility]* Problem Noted Date Resolved Date Delayed immunizations 11/19/2012 01/23/2016 Viral warts, unspecified 06/25/2008 012 documented as of this encounter (statuses as of 06/13/2022) [facility] Problem Noted Date Resolved Date Delayed immunizations 11/19/2012 01/23/2016 Viral warts, unspecified 06/25/2008 012 documented as of this encounter (statuses as of 07/04/2022) [facility] Problem Noted Date Resolved Date Delayed immunizations 11/19/2012 01/23/2016 Viral warts, unspecified 06/25/2008 012 documented as of this encounter (statuses as of 07/04/2022) [facility] Problem Noted Date Resolved Date Delayed immunizations 11/19/2012 01/23/2016 Viral warts, unspecified 06/25/2008 012 documented as of this encounter (statuses as of 07/05/2022) [facility] Problem Noted Date Resolved Date Delayed immunizations 11/19/2012 01/23/2016 Viral warts, unspecified 06/25/2008 012 documented as of this encounter (statuses as of 07/06/2022) [facility] Problem Noted Date Resolved Date Delayed immunizations 11/19/2012 01/23/2016 Viral warts, unspecified 06/25/2008 012 documented as of this encounter (statuses as of 07/08/2022) [facility] Problem Noted Date Resolved Date Delayed immunizations 11/19/2012 01/23/2016 Viral warts, unspecified 06/25/2008 012 documented as of this encounter (statuses as of 07/09/2022) [facility] Problem Noted Date Resolved Date Delayed immunizations 11/19/2012 01/23/2016 Viral warts, unspecified 06/25/2008 012 documented as of this encounter (statuses as of 07/09/2022) [facility] Problem Noted Date Resolved Date Delayed immunizations 11/19/2012 01/23/2016 Viral warts, unspecified 06/25/2008 012 documented as of this encounter (statuses as of 07/18/2022) [facility]* Problem Noted Date Resolved Date Delayed immunizations 11/19/2012 01/23/2016 Viral warts, unspecified 06/25/2008 012 documented as of this encounter (statuses as of 08/06/2022) [facility] Problem Noted Date Resolved Date Delayed immunizations 11/19/2012 01/23/2016 Viral warts, unspecified 06/25/2008 012 documented as of this encounter (statuses as of 08/07/2022) [facility] Problem Noted Date Resolved Date Delayed immunizations 11/19/2012 01/23/2016 Viral warts, unspecified 06/25/2008 012 documented as of this encounter (statuses as of 08/09/2022) [facility]* Problem Noted Date Resolved Date Delayed immunizations 11/19/2012 01/23/2016 Viral warts, unspecified 06/25/2008 012 documented as of this encounter (statuses as of 08/15/2022) [facility]* Problem Noted Date Resolved Date Delayed immunizations 11/19/2012 01/23/2016 Viral warts, unspecified 06/25/2008 012 documented as of this encounter (statuses as of 08/23/2022) [facility] Problem Noted Date Resolved Date Delayed immunizations 11/19/2012 01/23/2016 Viral warts, unspecified 06/25/2008 012 documented as of this encounter (statuses as of 08/27/2022) [facility] Problem Noted Date Resolved Date Delayed immunizations 11/19/2012 01/23/2016 Viral warts, unspecified 06/25/2008 012 documented as of this encounter (statuses as of 08/29/2022) [facility] Problem Noted Date Resolved Date Delayed immunizations 11/19/2012 01/23/2016 Viral warts, unspecified 06/25/2008 012 documented as of this encounter (statuses as of 09/02/2022) [facility] Problem Noted Date Resolved Date Delayed immunizations 11/19/2012 01/23/2016 Viral warts, unspecified 06/25/2008 012 documented as of this encounter (statuses as of 09/03/2022) [facility] Problem Noted Date Resolved Date Delayed immunizations 11/19/2012 01/23/2016 Viral warts, unspecified 06/25/2008 012 documented as of this encounter (statuses as of 09/05/2022) [facility] Problem Noted Date Resolved Date Delayed immunizations 11/19/2012 01/23/2016 Viral warts, unspecified 06/25/2008 012 documented as of this encounter (statuses as of 09/06/2022) [facility] Problem Noted Date Resolved Date Delayed immunizations 11/19/2012 01/23/2016 Viral warts, unspecified 06/25/2008 012 documented as of this encounter (statuses as of 09/09/2022) [facility] Problem Noted Date Resolved Date Delayed immunizations 11/19/2012 01/23/2016 Viral warts, unspecified 06/25/2008 012 documented as of this encounter (statuses as of 09/10/2022) [facility] Problem Noted Date Resolved Date Delayed immunizations 11/19/2012 01/23/2016 Viral warts, unspecified 06/25/2008 012 documented as of this encounter (statuses as of 09/10/2022) [facility] Problem Noted Date Resolved Date Delayed immunizations 11/19/2012 01/23/2016 Viral warts, unspecified 06/25/2008 012 documented as of this encounter (statuses as of 09/17/2022) [facility] Problem Noted Date Resolved Date Delayed immunizations 11/19/2012 01/23/2016 Viral warts, unspecified 06/25/2008 012 documented as of this encounter (statuses as of 09/30/2022) [facility] Problem Noted Date Resolved Date Delayed immunizations 11/19/2012 01/23/2016 Viral warts, unspecified 06/25/2008 012 documented as of this encounter (statuses as of 10/10/2022) [facility] Problem Noted Date Resolved Date Delayed immunizations 11/19/2012 01/23/2016 Viral warts, unspecified 06/25/2008 012 documented as of this encounter (statuses as of 10/10/2022) [facility] Problem Noted Date Resolved Date Delayed immunizations 11/19/2012 01/23/2016 Viral warts, unspecified 06/25/2008 012 documented as of this encounter (statuses as of 10/10/2022) [facility] Problem Noted Date Resolved Date Delayed immunizations 11/19/2012 01/23/2016 Viral warts, unspecified 06/25/2008 012 documented as of this encounter (statuses as of 10/12/2022) [facility] Problem Noted Date Resolved Date Delayed immunizations 11/19/2012 01/23/2016 Viral warts, unspecified 06/25/2008 012 documented as of this encounter (statuses as of 10/29/2022) [facility] Problem Noted Date Resolved Date Delayed immunizations 11/19/2012 01/23/2016 Viral warts, unspecified 06/25/2008 012 documented as of this encounter (statuses as of 11/04/2022) [facility] Problem Noted Date Resolved Date Delayed immunizations 11/19/2012 01/23/2016 Viral warts, unspecified 06/25/2008 012 documented as of this encounter (statuses as of 11/05/2022) [facility] Problem Noted Date Resolved Date Delayed immunizations 11/19/2012 01/23/2016 Viral warts, unspecified 06/25/2008 012 documented as of this encounter (statuses as of 11/09/2022) [facility] Problem Noted Date Resolved Date Delayed immunizations 11/19/2012 01/23/2016 Viral warts, unspecified 06/25/2008 012 documented as of this encounter (statuses as of 11/12/2022) [facility] Problem Noted Date Resolved Date Delayed immunizations 11/19/2012 01/23/2016 Viral warts, unspecified 06/25/2008 012 documented as of this encounter (statuses as of 11/29/2022) [facility] Problem Noted Date Resolved Date Delayed immunizations 11/19/2012 01/23/2016 Viral warts, unspecified 06/25/2008 012 documented as of this encounter (statuses as of 12/05/2022) [facility] Problem Noted Date Resolved Date Delayed immunizations 11/19/2012 01/23/2016 Viral warts, unspecified 06/25/2008 012 documented as of this encounter (statuses as of 12/25/2022) [facility] Problem Noted Date Resolved Date Delayed immunizations 11/19/2012 01/23/2016 Viral warts, unspecified 06/25/2008 012 documented as of this encounter (statuses as of 12/25/2022) [facility] Problem Noted Date Resolved Date Delayed immunizations 11/19/2012 01/23/2016 Viral warts, unspecified 06/25/2008 012 documented as of this encounter (statuses as of 12/26/2022) [facility] Problem Noted Date Resolved Date Delayed immunizations 11/19/2012 01/23/2016 Viral warts, unspecified 06/25/2008 012 documented as of this encounter (statuses as of 12/28/2022) [facility]* Problem Noted Date Resolved Date Delayed immunizations 11/19/2012 01/23/2016 Viral warts, unspecified 06/25/2008 012 documented as of this encounter (statuses as of 01/03/2023) [facility]* Problem Noted Date Diagnosed Date Resolved Date Delayed immunizations 11/19/20122015 Viral warts, unspecified 06/25/200803/2012 documented as of this encounter (statuses as of 01/10/2023) [facility]* Problem Noted Date Diagnosed Date Resolved Date Delayed immunizations 11/19/20122015 Viral warts, unspecified 06/25/200803/2012 documented as of this encounter (statuses as of 01/10/2023) [facility]* Problem Noted Date Diagnosed Date Resolved Date Delayed immunizations 11/19/20122015 Viral warts, unspecified 06/25/200803/2012 documented as of this encounter (statuses as of 01/11/2023) [facility]* Problem Noted Date Diagnosed Date Resolved Date Delayed immunizations 11/19/20122015 Viral warts, unspecified 06/25/200803/2012 documented as of this encounter (statuses as of 01/13/2023) [facility]* Problem Noted Date Diagnosed Date Resolved Date Delayed immunizations 11/19/20122015 Viral warts, unspecified 06/25/200803/2012 documented as of this encounter (statuses as of 01/14/2023) [facility]* Problem Noted Date Diagnosed Date Resolved Date Delayed immunizations 11/19/20122015 Viral warts, unspecified 06/25/200803/2012 documented as of this encounter (statuses as of 01/14/2023) [facility]* Problem Noted Date Diagnosed Date Resolved Date Delayed immunizations 11/19/20122015 Viral warts, unspecified 06/25/200803/2012 documented as of this encounter (statuses as of 01/14/2023) [facility]* Problem Noted Date Diagnosed Date Resolved Date Delayed immunizations 11/19/20122015 Viral warts, unspecified 06/25/200803/2012 documented as of this encounter (statuses as of 01/29/2023) [facility] Problem Noted Date Diagnosed Date Resolved Date Delayed immunizations 11/19/20122015 Viral warts, unspecified 06/25/200803/2012 documented as of this encounter (statuses as of 01/30/2023) [facility] illness Narrative* Problem Noted Date Diagnosed Date Resolved Date Delayed immunizations 11/19/20122015 Viral warts, unspecified 06/25/200803/2012 documented as of this encounter (statuses as of 02/06/2023) [facility]-2013 History of Past illness Narrative* Problem Noted Date Diagnosed Date Resolved Date Delayed immunizations 11/19/20122015 Viral warts, unspecified 06/25/200803/2012 documented as of this encounter (statuses as of 02/19/2023) [address]23-2013 History of Past illness Narrative* Problem Noted Date Diagnosed Date Resolved Date Delayed immunizations 11/19/20122015 Viral warts, unspecified 06/25/200803/2012 documented as of this encounter (statuses as of 02/25/2023) [facility]2013 History of Past illness Narrative* Problem Noted Date Diagnosed Date Resolved Date Delayed immunizations 11/19/20122015 Viral warts, unspecified 06/25/200803/2012 documented as of this encounter (statuses as of 03/12/2023) [facility]2013 History of Past illness Narrative* Problem Noted Date Diagnosed Date Resolved Date Delayed immunizations 11/19/20122015 Viral warts, unspecified 06/25/200803/2012 documented as of this encounter (statuses as of 03/12/2023) [facility] History of Past illness Narrative* Problem Noted Date Diagnosed Date Resolved Date Delayed immunizations 11/19/20122015 Viral warts, unspecified 06/25/200803/2012 documented as of this encounter (statuses as of 03/18/2023) [facility] History of Past illness Narrative* Problem Noted Date Diagnosed Date Resolved Date Delayed immunizations 11/19/20122015 Viral warts, unspecified 06/25/200803/2012 documented as of this encounter (statuses as of 03/21/2023) [facility] History of Past illness Narrative* Problem Noted Date Diagnosed Date Resolved Date Delayed immunizations 11/19/20122015 Viral warts, unspecified 06/25/200803/2012 documented as of this encounter (statuses as of 04/09/2023) [facility] History of Past illness Narrative* Problem Noted Date Diagnosed Date Resolved Date Delayed immunizations 11/19/20122015 Viral warts, unspecified 06/25/200803/2012 documented as of this encounter (statuses as of 04/16/2023) [facility] History of Past illness Narrative* Problem Noted Date Diagnosed Date Resolved Date Delayed immunizations 11/19/20122015 Viral warts, unspecified 06/25/200803/2012 documented as of this encounter (statuses as of 04/22/2023) [facility] History of Past illness Narrative* Problem Noted Date Diagnosed Date Resolved Date Delayed immunizations 11/19/20122015 Viral warts, unspecified 06/25/200803/2012 documented as of this encounter (statuses as of 05/04/2023) [facility] History of Past illness Narrative* Problem Noted Date Diagnosed Date Resolved Date Delayed immunizations 11/19/20122015 Viral warts, unspecified 06/25/200803/2012 documented as of this encounter (statuses as of 05/04/2023) [facility] History of Past illness Narrative* Problem Noted Date Diagnosed Date Resolved Date Delayed immunizations 11/19/20122015 Viral warts, unspecified 06/25/200803/2012 documented as of this encounter (statuses as of 05/04/2023) [facility] History of Past illness Narrative* Problem Noted Date Diagnosed Date Resolved Date Delayed immunizations 11/19/20122015 Viral warts, unspecified 06/25/200803/2012 documented as of this encounter (statuses as of 05/14/2023) [facility] History of Past illness Narrative* Problem Noted Date Diagnosed Date Resolved Date Delayed immunizations 11/19/20122015 Viral warts, unspecified 06/25/200803/2012 documented as of this encounter (statuses as of 05/15/2023) [facility] History of Past illness Narrative* Problem Noted Date Diagnosed Date Resolved Date Delayed immunizations 11/19/20122015 Viral warts, unspecified 06/25/200803/2012 documented as of this encounter (statuses as of 05/20/2023) [facility] History of Past illness Narrative* Problem Noted Date Diagnosed Date Resolved Date Delayed immunizations 11/19/20122015 Viral warts, unspecified 06/25/200803/2012 documented as of this encounter (statuses as of 07/06/2023) [facility] History of Past illness Narrative* Problem Noted Date Diagnosed Date Resolved Date Delayed immunizations 11/19/20122015 Viral warts, unspecified 06/25/200803/2012 documented as of this encounter (statuses as of 08/11/2023) [facility] History of Past illness Narrative* Problem Noted Date Diagnosed Date Resolved Date Delayed immunizations 11/19/20122015 Viral warts, unspecified 06/25/200803/2012 documented as of this encounter (statuses as of 08/11/2023) [facility] History of Past illness Narrative* Problem Noted Date Diagnosed Date Resolved Date Delayed immunizations 11/19/20122015 Viral warts, unspecified 06/25/200803/2012 documented as of this encounter (statuses as of 08/13/2023) [facility] History of Past illness Narrative* Problem Noted Date Diagnosed Date Resolved Date Delayed immunizations 11/19/20122015 Viral warts, unspecified 06/25/200803/2012 documented as of this encounter (statuses as of 08/18/2023) [facility] History of Past illness Narrative* Problem Noted Date Diagnosed Date Resolved Date Delayed immunizations 11/19/20122015 Viral warts, unspecified 06/25/200803/2012 documented as of this encounter (statuses as of 08/27/2023) [facility] History of Past illness Narrative* Problem Noted Date Diagnosed Date Resolved Date Delayed immunizations 11/19/20122015 Viral warts, unspecified 06/25/200803/2012 documented as of this encounter (statuses as of 09/11/2023) [facility] History of Past illness Narrative* Problem Noted Date Diagnosed Date Resolved Date Delayed immunizations 11/19/20122015 Viral warts, unspecified 06/25/200803/2012 documented as of this encounter (statuses as of 09/30/2023) [facility] History of Past illness Narrative* Problem Noted Date Diagnosed Date Resolved Date Delayed immunizations 11/19/20122015 Viral warts, unspecified 06/25/200803/2012 documented as of this encounter (statuses as of 10/09/2023) [facility] note* Diagnosis Attention deficit hyperactivity disorder (ADHD), combined type [facility]* Diagnosis Abnormal laboratory test- Primary Other abnormal clinical finding documented [facility] this encounter [facility]* Diagnosis Attention deficit hyperactivity disorder (ADHD), combined type documented [facility]* Diagnosis Attention deficit hyperactivity disorder (ADHD), combined type [facility] noteNo assessment information availableWCleveland [facility] Work Phone: Evaluation note* Diagnosis Attention deficit hyperactivity disorder (ADHD), combined type documented in this encounter [facility] note* Diagnosis Foot pain, right- Primary Pain in limb Acute right ankle pain [facility]* Diagnosis Abnormal urination- Primary Other abnormality of urination Irregular periods Irregular menstrual cycle Acute vaginitis Vaginitis and vulvovaginitis, unspecified documented [facility]* Diagnosis Urinary tract infection without hematuria, site unspecified- Primary documented in this encounter [facility] note* Diagnosis Attention deficit hyperactivity disorder (ADHD), combined type- Primary Migraine without status migrainosus, not intractable, unspecified migraine type Anxiety Anxiety state, unspecified Pain in right foot Pain in limb Encounter for immunization Need for other specified prophylactic vaccination against single bacterial disease documented in this encounter [facility] note* Diagnosis Skin tag of anus- Primary Residual hemorrhoidal skin tags Irregular menstrual cycle [facility]* Diagnosis Abnormal laboratory test- Primary Other abnormal clinical finding [facility]* Diagnosis Abnormal laboratory test- Primary Other abnormal clinical finding Malaise and fatigue Other malaise and fatigue Diarrhea, unspecified type Abdominal pain, unspecified abdominal location documented [facility] this [facility]* Diagnosis Attention deficit hyperactivity disorder (ADHD), combined type documented [facility]* Diagnosis Fatty liver- Primary Other chronic nonalcoholic liver disease Abnormal laboratory test Other abnormal clinical finding Malaise and fatigue Other malaise and fatigue Diarrhea, unspecified type Abdominal pain, unspecified abdominal location Nausea Nausea alone documented in this encounter [facility] note* Diagnosis Irregular menstrual cycle- Primary documented [facility]* Diagnosis Attention deficit hyperactivity disorder (ADHD), combined type documented in this encounter [facility] note* Diagnosis Attention deficit hyperactivity disorder (ADHD), combined type documented in this encounter [facility] note* Diagnosis Fatty liver- Primary Other chronic nonalcoholic liver disease Elevated LFTs Other abnormal blood chemistry documented in this encounter [facility] note* Diagnosis Chronic rhinitis- Primary Dysfunction of both eustachian tubes Dysfunction of Eustachian tube Chronic cough Cough Shortness of breath [facility] Diagnosis Fatty liver- Primary Other chronic nonalcoholic liver disease Elevated LFTs Other abnormal blood chemistry [facility] Diagnosis Attention deficit hyperactivity disorder (ADHD), combined type [facility]* Diagnosis Attention deficit hyperactivity disorder (ADHD), combined type [facility] Diagnosis Sinobronchitis- Primary Unspecified sinusitis (chronic) [facility] Diagnosis Fatty liver- Primary Other chronic nonalcoholic liver disease Malaise and fatigue Other malaise and fatigue [facility] Diagnosis Vitamin D deficiency- Primary Unspecified vitamin D deficiency [facility]* Diagnosis Attention deficit hyperactivity disorder (ADHD), combined type [facility] Diagnosis Leukocytosis, unspecified type- Primary Thrombocytosis Essential thrombocythemia documented in this encounter [facility] note* Diagnosis Sore throat- Primary Acute pharyngitis [facility] Diagnosis Suspected sleep apnea- Primary Malaise and fatigue Other malaise and fatigue Snoring Other dyspnea and respiratory abnormality Chronic fatigue Other malaise and fatigue [facility]* Diagnosis Obesity, Class III, BMI >= 40- Primary Morbid obesity Precordial pain [facility]* Diagnosis Attention deficit hyperactivity disorder (ADHD), combined type [facility] Diagnosis Migraine without status migrainosus, not [...] 40 Morbid obesity [facility] Diagnosis URI, acute- Primary Acute upper respiratory infections of unspecified site Acute otitis media, left Unspecified otitis media [facility] Diagnosis SOBOE (shortness of breath on exertion) Shortness of breath [facility]* Diagnosis ESTEBAN (obstructive sleep apnea)- Primary Obstructive sleep apnea (adult) (pediatric) [facility]* Diagnosis Attention deficit hyperactivity disorder (ADHD), combined type [facility] Diagnosis Sore throat- Primary Acute pharyngitis Other acute nonsuppurative otitis media of right ear, recurrence not specified [facility]* Diagnosis Attention deficit hyperactivity disorder (ADHD), combined type [facility]* Diagnosis Vaginal discharge- Primary Leukorrhea, not specified as infective [facility]* Diagnosis ESTEBAN (obstructive sleep apnea)- Primary Obstructive sleep apnea (adult) (pediatric) [facility]* Diagnosis Attention deficit hyperactivity disorder (ADHD), combined type [facility]* Diagnosis Leukocytosis, unspecified type- Primary Thrombocytosis Essential thrombocythemia [facility]* Diagnosis Attention deficit hyperactivity disorder (ADHD), combined type- Primary Migraine without status migrainosus, not intractable, unspecified migraine type Heartburn [facility]* Diagnosis ESTEBAN (obstructive sleep apnea)- Primary Obstructive sleep apnea (adult) (pediatric) ESTEBAN on CPAP Obstructive sleep apnea (adult) (pediatric) [facility]* Diagnosis Attention deficit hyperactivity disorder (ADHD), combined type [facility] Diagnosis Protracted URI- Primary Acute upper respiratory infections of unspecified site Non-recurrent acute serous otitis media of right ear [facility]* Diagnosis Secondary amenorrhea- Primary Absence of menstruation Missed menses Absence of menstruation documented in this encounter [facility] note* Diagnosis Attention deficit hyperactivity disorder (ADHD), combined type documented in this encounter [facility] note* Diagnosis Fatty liver- Primary Other chronic nonalcoholic liver disease Elevated LFTs Other abnormal blood chemistry Intermittent diarrhea [facility]* Diagnosis Fatty liver Other chronic nonalcoholic liver disease Elevated LFTs Other abnormal blood chemistry documented in this encounter [facility] note* Diagnosis Secondary amenorrhea Absence of menstruation documented [facility]* Diagnosis Abnormal laboratory test Other abnormal clinical finding Malaise and fatigue Other malaise and fatigue Diarrhea, unspecified type Abdominal pain, unspecified abdominal location documented in this encounter [facility] note* Diagnosis Vaginal odor- Primary Unspecified symptom associated with female genital organs documented in this encounter [facility] note* Diagnosis Attention deficit hyperactivity disorder (ADHD), combined type documented in this encounter [facility] note* Diagnosis Attention deficit hyperactivity disorder (ADHD), combined type- Primary Neck pain Cervicalgia ESTEBAN on CPAP Obstructive sleep apnea (adult) (pediatric) Class 3 severe obesity due to excess calories with body mass index (BMI) of 40.0 to 44.9 in adult, unspecified whether serious comorbidity present ([facility]) Moderate episode of recurrent major depressive disorder ([facility]) Encounter for immunization Need for other specified prophylactic vaccination against single bacterial disease documented in this encounter [facility] note* Diagnosis Vaginal itching- Primary Pruritus of genital organs Vaginal odor Unspecified symptom associated with female genital organs Dysuria documented in this encounter [facility] note* Diagnosis Contusion of right hand, subsequent encounter- Primary [facility]* Diagnosis Exposure to SARS-associated coronavirus- Primary [facility]* Diagnosis Leukocytosis, unspecified type- Primary Thrombocytosis Essential thrombocythemia [facility]* Diagnosis Vaginal discharge- Primary Leukorrhea, not specified as infective Vaginal itching Pruritus of genital organs documented [facility]* Diagnosis Migraine without status migrainosus, not intractable, unspecified migraine type- Primary Attention deficit hyperactivity disorder (ADHD), combined type Vaping nicotine dependence, non-tobacco product Recurrent major depressive disorder, in partial remission ([facility]) [facility]* Diagnosis Sore throat- Primary Acute pharyngitis Bacterial sinusitis Unspecified sinusitis (chronic) [facility]* Diagnosis NAFLD (nonalcoholic fatty liver disease)- Primary Other chronic nonalcoholic liver disease Diarrhea, unspecified type Gastroesophageal reflux disease, unspecified whether esophagitis present [facility]* Diagnosis NAFLD (nonalcoholic fatty liver disease)- Primary Other chronic nonalcoholic liver disease NAFLD (nonalcoholic fatty liver disease) Other chronic nonalcoholic liver disease Autoantibody titer positive Other and unspecified nonspecific immunological findings [facility]* Diagnosis Attention deficit hyperactivity disorder (ADHD), combined type NAFLD (nonalcoholic fatty liver disease) Other chronic nonalcoholic liver disease Autoantibody titer positive Other and unspecified nonspecific immunological findings [facility]* Diagnosis Right upper quadrant abdominal pain- Primary Abdominal pain, right upper quadrant [facility]* Diagnosis Attention deficit hyperactivity disorder (ADHD), combined type [facility]* Diagnosis Vaginal itching- Primary Pruritus of genital organs [facility]* Diagnosis Migraine without status migrainosus, not intractable, unspecified migraine type- Primary Attention deficit hyperactivity disorder (ADHD), combined type Impacted cerumen of right ear Impacted cerumen Acute otitis externa of right ear, unspecified type [facility]* Diagnosis Attention deficit hyperactivity disorder (ADHD), combined type [facility]* Diagnosis Right hand pain- Primary Pain in limb Right hand pain Pain in limb [facility]* Diagnosis Foot injury, left, initial encounter- Primary Foot injury, left, initial encounter [facility]* Diagnosis Nausea- Primary Nausea alone Acid indigestion Dyspepsia and other specified disorders of function of stomach [facility]* Diagnosis Attention deficit hyperactivity disorder (ADHD), combined type [facility]* Diagnosis Amenorrhea Absence of menstruation [facility]* Diagnosis Type 2 diabetes mellitus without complication, without long-term current use of insulin (HCC)- Primary Fatty liver Other chronic nonalcoholic liver disease Obesity, Class III, BMI >= 40 Morbid obesity Adenomyosis Endometriosis of uterus [facility]* Diagnosis Amenorrhea- Primary Absence of menstruation Medication management Encounter for long-term (current) use of other medications Amenorrhea Absence of menstruation [facility]* Diagnosis Vaginal discharge- Primary Leukorrhea, not specified as infective documented in this encounter [facility] note* Diagnosis Type 2 diabetes mellitus without complication, without long-term current use of insulin (HCC) Fatty liver Other chronic nonalcoholic liver disease Obesity, Class III, BMI >= 40 Morbid obesity [facility]* Diagnosis Attention deficit hyperactivity disorder (ADHD), combined type [facility]* Diagnosis Vaginal yeast infection- Primary Candidiasis of vulva and vagina [facility]* Diagnosis Rhinosinusitis- Primary Unspecified sinusitis (chronic) [facility]* Diagnosis Right hand pain Pain in limb [facility]* Diagnosis Vaginal yeast infection- Primary Candidiasis of vulva and vagina [facility]* Diagnosis Migraine without status migrainosus, not intractable, unspecified migraine type [facility]* Diagnosis Foot injury, left, initial encounter [facility] Diagnosis Right hand pain Pain in limb [facility]* Diagnosis Attention deficit hyperactivity disorder (ADHD), combined type [facility]* Diagnosis Type 2 diabetes mellitus without complication, without long-term current use of insulin (HCC)- Primary Fatty liver Other chronic nonalcoholic liver disease Obesity, Class III, BMI >= 40 Morbid obesity Vapes nicotine containing substance Encounter for immunization Need for other specified prophylactic vaccination against single bacterial disease Encounter for therapeutic drug monitoring Screening for lipid disorders documented in this encounter [facility] note* Diagnosis Acute right ankle pain Foot pain, right Pain in limb [facility] Diagnosis Injury of toe on right foot, initial encounter [facility] Diagnosis Chronic vaginitis- Primary Vaginitis and vulvovaginitis, unspecified [facility]* Diagnosis Attention deficit hyperactivity disorder (ADHD), combined type [facility]* Diagnosis Type 2 diabetes mellitus without complication, without long-term current use of insulin (HCC)- Primary Urinary frequency Migraine without status migrainosus, not intractable, unspecified migraine type Vaginal yeast infection Candidiasis of vulva and vagina [facility]* Diagnosis Vaginal discharge- Primary Leukorrhea, not specified as infective Vaginal itching Pruritus of genital organs Vulvar itching Pruritus of genital organs [facility] Diagnosis Chronic infection- Primary Unspecified infectious and parasitic diseases Vaginal yeast infection Candidiasis of vulva and vagina [facility]* Diagnosis Attention deficit hyperactivity disorder (ADHD), combined type [facility]* Diagnosis Acute non-recurrent frontal sinusitis- Primary [facility]* Diagnosis Attention deficit hyperactivity disorder (ADHD), combined type [facility]* Diagnosis Acid indigestion Dyspepsia and other specified disorders of function of stomach [facility]* Diagnosis Attention deficit hyperactivity disorder (ADHD), combined type- Primary Myalgia Mylagia and myositis, unspecified Elevated LFTs Other abnormal blood chemistry Nausea and vomiting, unspecified vomiting type Gastroesophageal reflux disease, unspecified whether esophagitis present Migraine without status migrainosus, not intractable, unspecified migraine type Controlled type 2 diabetes mellitus without complication, without long-term current use of insulin ([facility]) Eczema, unspecified type Encounter for immunization Need for other specified prophylactic vaccination against single bacterial disease Encounter for long-term current use of medication [facility]* Diagnosis Acute recurrent sinusitis, unspecified location- Primary [facility]* Diagnosis Marfan's syndrome- Primary PVC (premature ventricular contraction) Other premature beats [facility]* Diagnosis Type 2 diabetes mellitus without complication, without long-term current use of insulin (HCC) Fatty liver Other chronic nonalcoholic liver disease Obesity, Class III, BMI >= 40 Morbid obesity [facility]* Diagnosis Attention deficit hyperactivity disorder (ADHD), combined type [facility]* Diagnosis Vulvar irritation- Primary Other specified noninflammatory disorder of vulva and perineum [facility]* Diagnosis Vertigo- Primary Dizziness and giddiness [...] unspecified migraine type [facility]* Diagnosis Numbness and tingling- Primary Disturbance of skin sensation [facility]* Diagnosis Vulvar itching- Primary Pruritus of genital organs Missed menses Absence of menstruation [facility]* Diagnosis Leukocytosis, unspecified type- Primary [facility]* Diagnosis Generalized anxiety disorder with panic attacks- Primary Lightheaded Dizziness and giddiness Dizziness Dizziness and giddiness Numbness and tingling Disturbance of skin sensation Palpitations Type 2 diabetes mellitus without complication, without long-term current use of insulin (HCC) [facility]* Diagnosis Generalized anxiety disorder with panic attacks- Primary Panic attacks Panic disorder without agoraphobia Palpitations Insomnia due to mental disorder Post-traumatic stress disorder Posttraumatic stress disorder [facility]* Diagnosis Generalized anxiety disorder with panic attacks- Primary Panic attacks Panic disorder without agoraphobia Type 2 diabetes mellitus without complication, without long-term current use of insulin (HCC) Fatty liver Other chronic nonalcoholic liver disease Obesity, Class III, BMI >= 40 Morbid obesity Migraine without status migrainosus, not intractable, unspecified migraine type Attention deficit hyperactivity disorder (ADHD), combined type [facility]* Diagnosis Acute bronchitis, unspecified organism- Primary Lightheaded Dizziness and giddiness Dizziness Dizziness and giddiness Moderate episode of recurrent major depressive disorder (HCC) Generalized anxiety disorder with panic attacks Dandruff Other seborrheic dermatitis Seborrheic dermatitis Seborrheic dermatitis, unspecified Attention deficit hyperactivity disorder (ADHD), combined type [facility]* Diagnosis Generalized anxiety disorder with panic attacks- Primary Panic attacks Panic disorder without agoraphobia Palpitations Post-traumatic stress disorder Posttraumatic stress disorder Attention deficit hyperactivity disorder (ADHD), combined type Obstructive sleep apnea syndrome Obstructive sleep apnea (adult) (pediatric) Type 2 diabetes mellitus without complication, without long-term current use of insulin (HCC) Fatty liver Other chronic nonalcoholic liver disease Obesity, Class III, BMI >= 40 Morbid obesity Migraine without status migrainosus, not intractable, unspecified migraine type [facility] Diagnosis Generalized anxiety disorder with panic attacks- Primary Panic attacks Panic disorder without agoraphobia Palpitations Lightheaded Dizziness and giddiness Attention deficit hyperactivity disorder (ADHD), combined type Obstructive sleep apnea syndrome Obstructive sleep apnea (adult) (pediatric) Type 2 diabetes mellitus without complication, without long-term current use of insulin (HCC) Fatty liver Other chronic nonalcoholic liver disease [facility]* Diagnosis Attention deficit hyperactivity disorder (ADHD), combined type [facility]* Diagnosis Type 2 diabetes mellitus without complication, without long-term current use of insulin (HCC) [facility]* Diagnosis Migraine without status migrainosus, not intractable, unspecified migraine type [facility] Additional Instructions Ibuprofen as needed for pain. May add Tylenol to this if you need to. May also ice the affected area if you need to and elevate if swollen.[facility] Work Phone: Hospital Discharge instructions Additional Instructions Please return to the ER should you have any further concerns or worsening of [facility]WC[facility] Work Phone: Hospital Discharge instructions Additional [...] care physician for further outpatient evaluation and management.[facility] Work Phone: Hospital Discharge instructions Additional Instructions CT brain negative. EKG normal. Thyroid studies electrolytes normal. Labs with leukocytosis white count of 16.7. No clinical signs of infection. Follow-up with Dr. Saez hematology for further workup if needed. With paresthesias recurrent nonspecific follow-up with neurology, Dr. Bacon for further workup if needed.[facility] Work Phone: Hospital Discharge instructions Additional Instructions EKG is normal labs including D-dimer normal. Urine negative. You are set up with 48-hour Holter monitor. Avoid caffeine products. Follow-up with your cardiology team.[facility] Work Phone: Reason for referral (narrative)* Diagnostic Procedure Only (Urgent) - Closed Specialty Diagnoses / Procedures Referred By Contac t Referred To Contact XR IMAGING Diagnoses Foot pain, right Procedures XR FOOT GENERAL 3V AP/LAT/OBL RIGHT RADEX FOOT COMPLETE MINIMUM 3 VIEWS Kera Joseph APRN.CRIBBER [address] [place] [address] X[facility] Imaging Referral ID Status Reason Start Date Expiration Date V isits Requested Visits Authorized [id number] Closed Auto-Generate d Referral 02/20/2022 03/22/2023 1 1 * Diagnostic Procedure Only (Urgent) - Closed Specialty Diagnoses / Procedures Referred By Contac t Referred To Contact XR IMAGING Diagnoses Acute right ankle pain Procedures XR ANKLE GENERAL 3V AP/LAT/OBL RIGHT RADEX ANKLE COMPLETE MINIMUM 3 VIEWS Kera Joseph APRN.CRIBBER [address] [place] [address] Xr Imaging Referral ID Status Reason Start Date Expiration Date V isits Requested Visits Authorized [id number] Closed Auto-Generate d Referral 02/20/2022 03/22/2023 1 1 [facility] for referral (narrative)* Diagnostic Procedure Only (Routine) - Pending Review Specialty Diagnoses / Procedures Referred By Contac t Referred To Contact MOLECULAR & FUNCTIONAL IMAGING Diagnoses Nausea Procedures NM HEPATOBILIARY W EF AND/OR RX HEPATOBIL SYST IMAG INC GB W/PHARMA INTERVENJ Annia Hogan APRN.CRIBBER [address] [place] [address] Molecular & Functional Imaging [address] [id number] Referral ID Status Reason Start Date Expiration Date Visits Requested Visits Authorized [id number] Pending Review Auto-Generat ed Referral 05/07/2022 06/06/2023 1 1 * Outpatient Procedure (Routine) - Pending Review Specialty Diagnoses / Procedures Referred By Contac t Referred To Contact [facility] Diagnoses Abnormal laboratory test Fatty liver Procedures DDI VIBRATION CONTROLLED TRANSIENT ELASTOGRAPHY (VCTE) LIVER ELASTOGRAPHY W/O IMAG W/I&R Annia Hogan APRN.CRIBBER [address] [place] [address] [facility] [address] [place], [place] [id number] Referral ID Status Reason Start Date Expiration Date Visits Requested Visits Authorized [id number] Pending Review Auto-Generat ed Referral 05/07/2022 05/07/2023 1 1 [facility] for referral (narrative)* Outpatient Procedure (Routine) - Authorized Specialty Diagnoses / Procedures Referred By Contac t Referred To Contact [facility] Diagnoses SOBOE (shortness of breath on exertion) Procedures SPIROMETRY WITH DILATOR IF OBSTRUCTED BRNCDILAT RSPSE SPMTRY PRE&POST-BRNCDILAT ADMN 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 APRN.CEMENT FINISHER [address] [place] [address] [facility] [address] [place], [place] [id number] Referral ID Status Reason Start Date Expiration Date Visits Requested Visits Authorized [id number] Authorized Auto-Generat ed Referral 10/28/2022 11/27/2023 1 1 [facility] for referral (narrative)* Diagnostic Procedure Only (Routine) - Authorized Specialty Diagnoses / Procedures Referred By Contac t Referred To Contact US IMAGING Diagnoses Secondary amenorrhea Procedures US FEMALE PELVIS TRANSVAG US TRANSVAGINAL Kelly Nunez APRN.CNM [address] [place] [address] [place] [address] Referral ID Status Reason Start Date Expiration Date Visits Requested Visits Authorized [id number] Authorized Auto-Generat ed Referral 3 05/08/2024 1 1 [facility] for referral (narrative)* Diagnostic Procedure Only (Routine) - Authorized Specialty Diagnoses / Procedures Referred By Contac t Referred To Contact US IMAGING Diagnoses Fatty liver Elevated LFTs Procedures US ABD RIGHT UPPER QUADRANT US ABDOMINAL REAL TIME W/IMAGE LIMITED Zuleika Avalos PA-C [address] [facility] [place] [address] [place] [address] Referral ID Status Reason Start Date Expiration Date Visits Requested Visits Authorized [id number] Authorized Auto-Generat ed Referral 3 05/21/2024 1 1 [facility] for referral (narrative)* Diagnostic Procedure Only (Routine) - Closed Specialty Diagnoses / Procedures Referred By Contac t Referred To Contact US IMAGING Diagnoses Fatty liver Elevated LFTs Procedures US ABD RIGHT UPPER QUADRANT US ABDOMINAL REAL TIME W/IMAGE LIMITED Zuleika Avalos PA-C [address] [facility] [place] [address] [place] [address] Referral ID Status Reason Start Date Expiration Date V isits Requested Visits Authorized [id number] Closed Auto-Generate d Referral 04/22/2023 05/21/2024 1 1 T [facility] for referral (narrative)* Diagnostic Procedure Only (Routine) - Closed Specialty Diagnoses / Procedures Referred By Contac t Referred To Contact US IMAGING Diagnoses Secondary amenorrhea Procedures US FEMALE PELVIS TRANSVAG US TRANSVAGINAL Kelly Nunez APRN.CNM [address] [place] [address] [place] [address] Referral ID Status Reason Start Date Expiration Date V isits Requested Visits Authorized [id number] Closed Auto-Generate d Referral 04/09/2023 05/08/2024 1 1 [facility] for referral (narrative)* Diagnostic Procedure Only (Routine) - Closed Specialty Diagnoses / Procedures Referred By Contac t Referred To Contact US IMAGING Diagnoses Abnormal laboratory test Malaise and fatigue Diarrhea, unspecified type Abdominal pain, unspecified abdominal location Procedures US ABD RT UPPER QUADRANT US ABDOMINAL REAL TIME W/IMAGE LIMITED Antonio Smalls MD [address] [place] [address] [place] [address] Referral ID Status Reason Start Date Expiration Date V isits Requested Visits Authorized [id number] Closed Auto-Generate d Referral 04/18/2022 05/18/2023 1 1 T [facility] for referral (narrative)* Diagnostic Procedure Only (Urgent) - Closed Specialty Diagnoses / Procedures Referred By Contac t Referred To Contact XR IMAGING Diagnoses Foot injury, left, initial encounter Procedures XR FOOT GENERAL 3V AP/LAT/OBL LEFT RADEX FOOT COMPLETE MINIMUM 3 VIEWS Kera Joseph, WARP SCOURING VAT TENDER.CRIBBER [address] [place] [address] [place] [address] Referral ID Status Reason Start Date Expiration Date V isits Requested Visits Authorized [id number] Closed Auto-Generate d Referral 12/22/2023 01/20/2025 1 1 [facility] for referral (narrative)* Diagnostic Procedure Only (Routine) - Closed Specialty Diagnoses / Procedures Referred By Contac t Referred To Contact [facility] Diagnoses Amenorrhea Procedures PELVIC US WHI US PELVIC NONOBSTETRIC REAL-TIME IMAGE COMPLETE Pat Ferrer APRN.CRIBBER [address] [place] [address] [facility] [address] [place] [address] Referral ID Status Reason Start Date Expiration Date V isits Requested Visits Authorized [id number] Closed Auto-Generate d Referral 01/22/2024 01/21/2025 1 1 [facility] for referral (narrative)* Diagnostic Procedure Only (Urgent) - Closed Specialty Diagnoses / Procedures Referred By Contac t Referred To Contact XR IMAGING Diagnoses Foot injury, left, initial encounter Procedures XR FOOT GENERAL 3V AP/LAT/OBL LEFT RADEX FOOT COMPLETE MINIMUM 3 VIEWS Kera Joseph APRN.CRIBBER [address] [place] [address] [place] [address] Referral ID Status Reason Start Date Expiration Date V isits Requested Visits Authorized [id number] Closed Auto-Generate d Referral 12/22/2023 01/20/2025 1 1 [facility] for referral (narrative)* Diagnostic Procedure Only (Urgent) - Closed Specialty Diagnoses / Procedures Referred By Contac t Referred To Contact XR IMAGING Diagnoses Right hand pain Procedures XR HAND GENERAL 3V PA/LAT/OBL RIGHT RADEX HAND MINIMUM 3 VIEWS Terrence Hill APRN.CRIBBER [address] [place] [address] [place] [address] Referral ID Status Reason Start Date Expiration Date V isits Requested Visits Authorized [id number] Closed Auto-Generate d Referral 12/17/2023 01/15/2025 1 1 [facility] for referral (narrative)* Diagnostic Procedure Only (Urgent) - Closed Specialty Diagnoses / Procedures Referred By Contac t Referred To Contact XR IMAGING Diagnoses Foot pain, right Procedures XR FOOT GENERAL 3V AP/LAT/OBL RIGHT RADEX FOOT COMPLETE MINIMUM 3 VIEWS Kera Joseph APRN.CRIBBER [address] [place] [address] [place] [address] Referral ID Status Reason Start Date Expiration Date V isits Requested Visits Authorized [id number] Closed Auto-Generate d Referral 02/20/2022 03/22/2023 1 1 * Diagnostic Procedure Only (Urgent) - Closed Specialty Diagnoses / Procedures Referred By Contac t Referred To Contact XR IMAGING Diagnoses Acute right ankle pain Procedures XR ANKLE GENERAL 3V AP/LAT/OBL RIGHT RADEX ANKLE COMPLETE MINIMUM 3 VIEWS Kera Joseph APRN.CRIBBER [address] [place] [address] [place] [address] Referral ID Status Reason Start Date Expiration Date V isits Requested Visits Authorized [id number] Closed Auto-Generate d Referral 02/20/2022 03/22/2023 1 1 [facility] for referral (narrative)* Diagnostic Procedure Only (Routine) - Closed Specialty Diagnoses / Procedures Referred By Contac t Referred To Contact XR IMAGING Diagnoses Injury of toe on right foot, initial encounter Procedures XR TOE AP/LAT/OBL RIGHT X-RAY TOE(S) Antonio Smalls MD [address] [place] [address] [place] [address] Referral ID Status Reason Start Date Expiration Date V isits Requested Visits Authorized [id number] Closed Auto-Generate d Referral 07/12/2021 08/11/2022 1 1 [facility] for referral (narrative)No reason for referral information availableWC[facility] Work Phone: Reason for visit Narrative* Diagnostic Procedure Only (Routine) - Closed Specialty Diagnoses / Procedures Referred By Contac t Referred To Contact [facility] Diagnoses Amenorrhea Procedures PELVIC US WHI US PELVIC NONOBSTETRIC REAL-TIME IMAGE COMPLETE Pat Ferrer, WARP SCOURING VAT TENDER.CRIBBER [address] [place] [address] [facility] [address] [place] [address] Referral ID Status Reason Start Date Expiration Date V isits Requested Visits Authorized [id number] Closed Auto-Generate d Referral 01/22/2024 01/21/2025 1 1 [facility] for visit Narrative* Diagnostic Procedure Only (Urgent) - Closed Specialty Diagnoses / Procedures Referred By Contac t Referred To Contact XR IMAGING Diagnoses Foot injury, left, initial encounter Procedures XR FOOT GENERAL 3V AP/LAT/OBL LEFT RADEX FOOT COMPLETE MINIMUM 3 VIEWS Kera Joseph, WARP SCOURING VAT TENDER.CRIBBER [address] [place] [address] [place] [address] Referral ID Status Reason Start Date Expiration Date V isits Requested Visits Authorized [id number] Closed Auto-Generate d Referral 12/22/2023 01/20/2025 1 1 [facility] for visit Narrative* Diagnostic Procedure Only (Urgent) - Closed Specialty Diagnoses / Procedures Referred By Contac t Referred To Contact XR IMAGING Diagnoses Right hand pain Procedures XR HAND GENERAL 3V PA/LAT/OBL RIGHT RADEX HAND MINIMUM 3 VIEWS Terrence Hill, WARP SCOURING VAT TENDER.CRIBBER [address] [place] [address] [place] [address] Referral ID Status Reason Start Date Expiration Date V isits Requested Visits Authorized [id number] Closed Auto-Generate d Referral 12/17/2023 01/15/2025 1 1 [facility] for visit Narrative* Diagnostic Procedure Only (Urgent) - Closed Specialty Diagnoses / Procedures Referred By Contac t Referred To Contact XR IMAGING Diagnoses Foot pain, right Procedures XR FOOT GENERAL 3V AP/LAT/OBL RIGHT RADEX FOOT COMPLETE MINIMUM 3 VIEWS Kera Joseph, HARLAN.CRIBBER [address] [place] [address] [place] [address] Referral ID Status Reason Start Date Expiration Date V isits Requested Visits Authorized [id number] Closed Auto-Generate d Referral 02/20/2022 03/22/2023 1 1 [facility] for visit Narrative* Diagnostic Procedure Only (Routine) - Closed Specialty Diagnoses / Procedures Referred By Contac t Referred To Contact XR IMAGING Diagnoses Injury of toe on right foot, initial encounter Procedures XR TOE AP/LAT/OBL RIGHT X-RAY TOE(S) Antonio Smalls MD [address] [place] [address] [place] [address] Referral ID Status Reason Start Date Expiration Date V isits Requested Visits Authorized [id number] Closed Auto-Generate d Referral 07/12/2021 08/11/2022 1 1 [facility] Summary Purpose Family History No Family History Records FoundNo Family History Records FoundNo Family History Records FoundNo Family History Records FoundNo Family History Records FoundNo Family History Records FoundNo Family History Records FoundNo Family History Records Found Advance Directives No Advanced Directives Records Found Advance Directive Response Recorded Date/ Time Living Will No January 26, 2022 2:02am Power of Law Office Receptionist No January 26 2:02am Advance Directive Response Recorded Date/ Time Living Will No April 11 12:51am Power of Law Office Receptionist No April 11, 2022 12:51am Advance Directive Response Recorded Date/ Time Living Will No September 29, 2024 8:22pm Do you have a Healthcare Power of Law Office Receptionist? No September 29, 2024 8:22pm Advance Directive Response Recorded Date/ Time Living Will No October 06, 2024 8:12pm Do you have a Healthcare Power of Law Office Receptionist? No October 06, 2024 8:12pm Living Will No September 29, 2024 8:22pm Do you have a Healthcare Power of Law Office Receptionist? No September 29, 2024 8:22pm Advance Directive Response Recorded Date/ Time Living Will No October 06, 2024 8:12pm Do you have a Healthcare Power of Law Office Receptionist? No October 06, 2024 8:12pm Living Will No September 29, 2024 8:22pm Do you have a Healthcare Power of Law Office Receptionist? No September 29, 2024 8:22pm Do you have a Healthcare Power of Law Office Receptionist? No October 25, 2024 12:41am Advance Directive Response Recorded Date/ Time Living Will No October 06, 2024 8:12pm Do you have a Healthcare Power of Law Office Receptionist? No October 06, 2024 8:12pm Do you have a Healthcare Power of Law Office Receptionist? No October 28, 2024 11:34pm Do you have a Healthcare Power of Law Office Receptionist? No December 02, 2024 9:12pm Living Will No September 29, 2024 8:22pm Do you have a Healthcare Power of Law Office Receptionist? No September 29, 2024 8:22pm Do you have a Healthcare Power of Law Office Receptionist? No October 25, 2024 12:41am Reason for Referral Specialty Diagnoses / Procedures Referred By Contac t Referred To Contact Diagnoses Attention deficit hyperactivity disorder (ADHD), combined type Antonio Smalls MD [address] [place] [address] Referral ID Status Reason Start Date Expiration Date Visits Re quested Visits Authorized [id number] Closed 1 1 Specialty Diagnoses / Procedures Referred By Contac t Referred To Contact Diagnoses Attention deficit hyperactivity disorder (ADHD), combined type Kishor Abdul MD [address] [place] [address] Referral ID Status Reason Start Date Expiration Date Visits Re quested Visits Authorized [id number] Closed 1 1 Specialty Diagnoses / Procedures Referred By Contac t Referred To Contact Diagnoses Attention deficit hyperactivity disorder (ADHD), combined type Hemalatha Dejesus MD [address] [place] [address] Referral ID Status Reason Start Date Expiration Date Visits Re quested Visits Authorized [id number] Closed 1 1 Specialty Diagnoses / Procedures Referred By Contac t Referred To Contact Diagnoses Attention deficit hyperactivity disorder (ADHD), combined type Estrellita Underwood PA-C [address] [place] [address] Referral ID Status Reason Start Date Expiration Date Visits Re quested Visits Authorized [id number] Closed 1 1 Specialty Diagnoses / Procedures Referred By Contac t Referred To Contact Podiatry Diagnoses Pain in right foot Procedures CONSULT TO PODIATRY OFFICE/OUTPATIENT [facility] 60-74 MINUTES Antonio Smalls MD [address] [place], [place] [id number] Referral ID Status Reason Start Date Expiration Date Visits Requested Visits Authorized [id number] Authorized PCP Requested Referral 03/12/2022 03/12/2023 1 1 Specialty Diagnoses / Procedures Referred By Contac t Referred To Contact Gastroenterology Diagnoses Abnormal laboratory test Malaise and fatigue Diarrhea, unspecified type Abdominal pain, unspecified abdominal location Procedures CONSULT TO GASTROENTEROLOGY OFFICE/OUTPATIENT [facility] 60-[place] [address] [place] [id number] Referral ID Status Reason Start Date Expiration Date Visits Requested Visits Authorized [id number] Authorized PCP Requested Referral 2 04/18/2023 1 1 Specialty Diagnoses / Procedures Referred By Contac t Referred To Contact [facility] IMAGING Diagnoses Abnormal laboratory test Malaise and fatigue Diarrhea, unspecified type Abdominal pain, unspecified abdominal location Procedures US ABD RT UPPER QUADRANT US ABDOMINAL REAL TIME W/IMAGE LIMITED Antonio Smalls MD [address] [place] [address] [facility] Referral ID Status Reason Start Date Expiration Date Visits Requested Visits Authorized [id number] Pending Review Auto-Generat ed Referral 2 05/18/2023 1 1 Specialty Diagnoses / Procedures Referred By Contac t Referred To Contact CT IMAGING Diagnoses Precordial pain Procedures CTA CORONARY W IVCON CTA HRT CORNRY ART/BYPASS GRFTS CONTRST 3D POST Sleniharika, Santi Hernandezoud, MD [address] [place] [address] Fax: Ct Imaging Referral ID Status Reason Start Date Expiration Date Visits Requested Visits Authorized [id number] Pending Review Auto-Generat ed Referral 10/30/2022 10/30/2023 1 1 Specialty Diagnoses / Procedures Referred By Contac t Referred To Contact [facility] Diagnoses Precordial pain Procedures ECHO ECHO TTHRC R-T 2D W/WOM-MODE COMPL SPEC&COLR D Santi Mcallister MD [address] [place] [address] [facility] [address] [place] [address] Referral ID Status Reason Start Date Expiration Date Visits Requested Visits Authorized [id number] Additional Clinical Info Needed Auto-Generat ed Referral 10/07/2022 09/30/2023 1 1 Specialty Diagnoses / Procedures Referred By Contac t Referred To Contact INTERNAL MEDICINE Diagnoses Attention deficit hyperactivity disorder (ADHD), combined type Procedures ESTABLISH WITH PRIMARY CARE NEW PATIENT OFFICE/OUTPATIENT [facility] 60-74 MINUTES Antonio Smalls MD [address] [place] [address] [facility] [address] [place] [address] Referral ID Status Reason Start Date Expiration Date V isits Requested Visits Authorized [id number] Closed PCP Requested Referral 10/09/2022 10/09/2023 1 1 Specialty Diagnoses / Procedures Referred By Contac t Referred To Contact Diagnoses Attention deficit hyperactivity disorder (ADHD), combined type Kate Silva MD [address] [place] [address] Referral ID Status Reason Start Date Expiration Date Visits Re quested Visits Authorized [id number] Closed 1 1 Referral ID Status Reason Start Date Expiration Date Visits Re quested Visits Authorized [id number] Closed 1 1 Referral ID Status Reason Start Date Expiration Date Visits Re quested Visits Authorized [id number] Closed 1 1 Referral ID Status Reason Start Date Expiration Date Visits Re quested Visits Authorized [id number] Closed 1 1 Referral ID Status Reason Start Date Expiration Date Visits Re quested Visits Authorized [id number] Closed 1 1 Referral ID Status Reason Start Date Expiration Date Visits Re quested Visits Authorized [id number] Closed 1 1 Referral ID Status Reason Start Date Expiration Date Visits Re quested Visits Authorized [id number] Closed 1 1 Referral ID Status Reason Start Date Expiration Date Visits Re quested Visits Authorized [id number] Closed 1 1 Referral ID Status Reason Start Date Expiration Date Visits Re quested Visits Authorized [id number] Closed 1 1 Referral ID Status Reason Start Date Expiration Date Visits Re quested Visits Authorized [id number] Closed 1 1 Referral ID Status Reason Start Date Expiration Date Visits Re quested Visits Authorized [id number] Closed 1 1 Referral ID Status Reason Start Date Expiration Date Visits Re quested Visits Authorized [id number] Closed 1 1 Referral ID Status Reason Start Date Expiration Date Visits Re quested Visits Authorized [id number] Closed 1 1 Referral ID Status Reason Start Date Expiration Date Visits Re quested Visits Authorized [id number] Closed 1 1 Specialty Diagnoses / Procedures Referred By Contac t Referred To Contact Diagnoses Attention deficit hyperactivity disorder (ADHD), combined type Sher Hollingsworth, WARP SCOURING VAT TENDER.CRIBBER [address] [place] [address] Referral ID Status Reason Start Date Expiration Date Visits Re quested Visits Authorized [id number] Closed 1 1 Referral ID Status Reason Start Date Expiration Date Visits Re quested Visits Authorized [id number] Closed 1 1 Specialty Diagnoses / Procedures Referred By Contac t Referred To Contact Orthopedics Diagnoses Right hand pain Procedures CONSULT PANEL TO ORTHOPAEDICS OFFICE/OUTPATIENT [facility] MDM 60 MINUTES Moomaw, Terrence, WARP SCOURING VAT TENDER.CRIBBER [address] [place] [address] Referral ID Status Reason Start Date Expiration Date Visits Requested Visits Authorized [id number] Authorized PCP Requested Referral 12/17/2023 12/16/2024 1 1 Specialty Diagnoses / Procedures Referred By Contac t Referred To Contact XR IMAGING Diagnoses Right hand pain Procedures XR HAND GENERAL 3V PA/LAT/OBL RIGHT RADEX HAND MINIMUM 3 VIEWS Moomaw, Terrence, WARP SCOURING VAT TENDER.CRIBBER [address] [place] [address] [place] [address] Referral ID Status Reason Start Date Expiration Date V isits Requested Visits Authorized [id number] Closed Auto-Generate d Referral 12/17/2023 01/15/2025 1 1 Referral ID Status Reason Start Date Expiration Date Visits Re quested Visits Authorized [id number] Closed 1 1 Referral ID Status Reason Start Date Expiration Date Visits Re quested Visits Authorized [id number] Closed 1 1 Referral ID Status Reason Start Date Expiration Date Visits Re quested Visits Authorized [id number] Closed 1 1 Specialty Diagnoses / Procedures Referred By Contac t Referred To Contact Diagnoses Chronic infection Vaginal yeast infection Pat Ferrer, HARLAN.CRIBBER [address] [place] [address] Referral ID Status Reason Start Date Expiration Date V isits Requested Visits Authorized [id number] Authorized 05/10/2024 08/07/2024 1 1 Chief Complaint [...] pm anxiety October 25, 2024 12: 36am Chief Complaint Admit Date Weakness September 29, 2024 8:08 pm GEN ILLNESS October 06, 2024 7:45 pm anxiety October 25, 2024 12: 36am general illness October 28, 2024 10:29p m PALPITATIONS December 02, 2024 8:46p m 48 HOUR HOLTER December 02, 2024 11:06 pm Medications Administered Section Inactive Administered Medications - [...] section and content) DATE CREATED AUTHOR 12/23/2017 [facility] DATE CREATED AUTHOR AUTHOR'S ORGANIZ ATION 11/23/2018 [facility] [place] DATE CREATED AUTHOR AUTHOR'S ORGANIZ ATION 08/15/2021 [facility] DATE CREATED AUTHOR AUTHOR'S ORGANIZ ATION 12/29/2022 [facility] DATE CREATED AUTHOR AUTHOR'S ORGANIZ ATION 11/26/2023 [facility] DATE CREATED AUTHOR AUTHOR'S ORGANIZ ATION 10/18/2024 [facility] DATE CREATED AUTHOR AUTHOR'S ORGANIZ ATION 04/28/[address] [facility] DATE CREATED AUTHOR AUTHOR'S ORGANIZ ATION 05/06/2025 [facility] Comments (unrecognize d section and content) In the event this informatio n is protected by the Federal Confidentiality of Alcohol and Drug Abuse Patient Records regulations: The Federal rules restrict any use of the information to criminally investigate or prosecute any alcohol or drug abuse patient.[facility] the event this information is protected by the Federal Confidentiality of Alcohol and Drug Abuse Patient Records regulations: The Federal rules restrict any use of the information to criminally investigate or prosecute any alcohol or drug abuse patient.[facility]In the event this information is protected by the Federal Confidentiality of Alcohol and Drug Abuse Patient Records regulations: The Federal rules restrict any use of the information to criminally investigate or prosecute any alcohol or drug abuse patient.[facility] HospitalIn the event this information is protected by the Federal Confidentiality of Alcohol and Drug Abuse Patient Records regulations: The Federal rules restrict any use of the information to criminally investigate or prosecute any alcohol or drug abuse patient.[facility] HospitalIn the event this information is protected by the Federal Confidentiality of Alcohol and Drug Abuse Patient Records regulations: The Federal rules restrict any use of the information to criminally investigate or prosecute any alcohol or drug abuse patient.[facility] HospitalIn the event this information is protected by the Federal Confidentiality of Alcohol and Drug Abuse Patient Records regulations: The Federal rules restrict any use of the information to criminally investigate or prosecute any alcohol or drug abuse patient.[facility] HospitalIn the event this information is protected by the Federal Confidentiality of Alcohol and Drug Abuse Patient Records regulations: The Federal rules restrict any use of the information to criminally investigate or prosecute any alcohol or drug abuse patient.[facility] HospitalIn the event this information is protected by the Federal Confidentiality of Alcohol and Drug Abuse Patient Records regulations: The Federal rules restrict any use of the information to criminally investigate or prosecute any alcohol or drug abuse patient.[facility] HospitalIn the event this information is protected by the Federal Confidentiality of Alcohol and Drug Abuse Patient Records regulations: The Federal rules restrict any use of the information to criminally investigate or prosecute any alcohol or drug abuse patient.[facility] HospitalIn the event this information is protected by the Federal Confidentiality of Alcohol and Drug Abuse Patient Records regulations: The Federal rules restrict any use of the information to criminally investigate or prosecute any alcohol or drug abuse patient.[facility] HospitalIn the event this information is protected by the Federal Confidentiality of Alcohol and Drug Abuse Patient Records regulations: The Federal rules restrict any use of the information to criminally investigate or prosecute any alcohol or drug abuse patient.[facility] HospitalIn the event this information is protected by the Federal Confidentiality of Alcohol and Drug Abuse Patient Records regulations: The Federal rules restrict any use of the information to criminally investigate or prosecute any alcohol or drug abuse patient.[facility] HospitalIn the event this information is protected by the Federal Confidentiality of Alcohol and Drug Abuse Patient Records regulations: The Federal rules restrict any use of the information to criminally investigate or prosecute any alcohol or drug abuse patient.[facility] HospitalIn the event this information is protected by the Federal Confidentiality of Alcohol and Drug Abuse Patient Records regulations: The Federal rules restrict any use of the information to criminally investigate or prosecute any alcohol or drug abuse patient.[facility] HospitalIn the event this information is protected by the Federal Confidentiality of Alcohol and Drug Abuse Patient Records regulations: The Federal rules restrict any use of the information to criminally investigate or prosecute any alcohol or drug abuse patient.[facility] HospitalIn the event this information is protected by the Federal Confidentiality of Alcohol and Drug Abuse Patient Records regulations: The Federal rules restrict any use of the information to criminally investigate or prosecute any alcohol or drug abuse patient.[facility] HospitalIn the event this information is protected by the Federal Confidentiality of Alcohol and Drug Abuse Patient Records regulations: The Federal rules restrict any use of the information to criminally investigate or prosecute any alcohol or drug abuse patient.[facility] HospitalIn the event this information is protected by the Federal Confidentiality of Alcohol and Drug Abuse Patient Records regulations: The Federal rules restrict any use of the information to criminally investigate or prosecute any alcohol or drug abuse patient.[facility] HospitalIn the event this information is protected by the Federal Confidentiality of Alcohol and Drug Abuse Patient Records regulations: The Federal rules restrict any use of the information to criminally investigate or prosecute any alcohol or drug abuse patient.[facility] HospitalIn the event this information is protected by the Federal Confidentiality of Alcohol and Drug Abuse Patient Records regulations: The Federal rules restrict any use of the information to criminally investigate or prosecute any alcohol or drug abuse patient.[facility] HospitalIn the event this information is protected by the Federal Confidentiality of Alcohol and Drug Abuse Patient Records regulations: The Federal rules restrict any use of the information to criminally investigate or prosecute any alcohol or drug abuse patient.[facility] HospitalIn the event this information is protected by the Federal Confidentiality of Alcohol and Drug Abuse Patient Records regulations: The Federal rules restrict any use of the information to criminally investigate or prosecute any alcohol or drug abuse patient.[facility] HospitalIn the event this information is protected by the Federal Confidentiality of Alcohol and Drug Abuse Patient Records regulations: The Federal rules restrict any use of the information to criminally investigate or prosecute any alcohol or drug abuse patient.[facility] HospitalIn the event this information is protected by the Federal Confidentiality of Alcohol and Drug Abuse Patient Records regulations: The Federal rules restrict any use of the information to criminally investigate or prosecute any alcohol or drug abuse patient.[facility] HospitalIn the event this information is protected by the Federal Confidentiality of Alcohol and Drug Abuse Patient Records regulations: The Federal rules restrict any use of the information to criminally investigate or prosecute any alcohol or drug abuse patient.[facility] HospitalIn the event this information is protected by the Federal Confidentiality of Alcohol and Drug Abuse Patient Records regulations: The Federal rules restrict any use of the information to criminally investigate or prosecute any alcohol or drug abuse patient.[facility] HospitalIn the event this information is protected by the Federal Confidentiality of Alcohol and Drug Abuse Patient Records regulations: The Federal rules restrict any use of the information to criminally investigate or prosecute any alcohol or drug abuse patient.[facility] HospitalIn the event this information is protected by the Federal Confidentiality of Alcohol and Drug Abuse Patient Records regulations: The Federal rules restrict any use of the information to criminally investigate or prosecute any alcohol or drug abuse patient.[facility] HospitalIn the event this information is protected by the Federal Confidentiality of Alcohol and Drug Abuse Patient Records regulations: The Federal rules restrict any use of the information to criminally investigate or prosecute any alcohol or drug abuse patient.[facility] HospitalIn the event this information is protected by the Federal Confidentiality of Alcohol and Drug Abuse Patient Records regulations: The Federal rules restrict any use of the information to criminally investigate or prosecute any alcohol or drug abuse patient.[facility] HospitalIn the event this information is protected by the Federal Confidentiality of Alcohol and Drug Abuse Patient Records regulations: The Federal rules restrict any use of the information to criminally investigate or prosecute any alcohol or drug abuse patient.[facility] HospitalIn the event this information is protected by the Federal Confidentiality of Alcohol and Drug Abuse Patient Records regulations: The Federal rules restrict any use of the information to criminally investigate or prosecute any alcohol or drug abuse patient.[facility] HospitalIn the event this information is protected by the Federal Confidentiality of Alcohol and Drug Abuse Patient Records regulations: The Federal rules restrict any use of the information to criminally investigate or prosecute any alcohol or drug abuse patient.[facility] HospitalIn the event this information is protected by the Federal Confidentiality of Alcohol and Drug Abuse Patient Records regulations: The Federal rules restrict any use of the information to criminally investigate or prosecute any alcohol or drug abuse patient.[facility] HospitalIn the event this information is protected by the Federal Confidentiality of Alcohol and Drug Abuse Patient Records regulations: The Federal rules restrict any use of the information to criminally investigate or prosecute any alcohol or drug abuse patient.[facility] HospitalIn the event this information is protected by the Federal Confidentiality of Alcohol and Drug Abuse Patient Records regulations: The Federal rules restrict any use of the information to criminally investigate or prosecute any alcohol or drug abuse patient.[facility] HospitalIn the event this information is protected by the Federal Confidentiality of Alcohol and Drug Abuse Patient Records regulations: The Federal rules restrict any use of the information to criminally investigate or prosecute any alcohol or drug abuse patient.[facility] HospitalIn the event this information is protected by the Federal Confidentiality of Alcohol and Drug Abuse Patient Records regulations: The Federal rules restrict any use of the information to criminally investigate or prosecute any alcohol or drug abuse patient.[facility] HospitalIn the event this information is protected by the Federal Confidentiality of Alcohol and Drug Abuse Patient Records regulations: The Federal rules restrict any use of the information to criminally investigate or prosecute any alcohol or drug abuse patient.[facility] HospitalIn the event this information is protected by the Federal Confidentiality of Alcohol and Drug Abuse Patient Records regulations: The Federal rules restrict any use of the information to criminally investigate or prosecute any alcohol or drug abuse patient.[facility] HospitalIn the event this information is protected by the Federal Confidentiality of Alcohol and Drug Abuse Patient Records regulations: The Federal rules restrict any use of the information to criminally investigate or prosecute any alcohol or drug abuse patient.[facility] HospitalIn the event this information is protected by the Federal Confidentiality of Alcohol and Drug Abuse Patient Records regulations: The Federal rules restrict any use of the information to criminally investigate or prosecute any alcohol or drug abuse patient.[facility] HospitalIn the event this information is protected by the Federal Confidentiality of Alcohol and Drug Abuse Patient Records regulations: The Federal rules restrict any use of the information to criminally investigate or prosecute any alcohol or drug abuse patient.[facility] HospitalIn the event this information is protected by the Federal Confidentiality of Alcohol and Drug Abuse Patient Records regulations: The Federal rules restrict any use of the information to criminally investigate or prosecute any alcohol or drug abuse patient.[facility] HospitalIn the event this information is protected by the Federal Confidentiality of Alcohol and Drug Abuse Patient Records regulations: The Federal rules restrict any use of the information to criminally investigate or prosecute any alcohol or drug abuse patient.[facility] HospitalIn the event this information is protected by the Federal Confidentiality of Alcohol and Drug Abuse Patient Records regulations: The Federal rules restrict any use of the information to criminally investigate or prosecute any alcohol or drug abuse patient.[facility] HospitalIn the event this information is protected by the Federal Confidentiality of Alcohol and Drug Abuse Patient Records regulations: The Federal rules restrict any use of the information to criminally investigate or prosecute any alcohol or drug abuse patient.[facility] HospitalIn the event this information is protected by the Federal Confidentiality of Alcohol and Drug Abuse Patient Records regulations: The Federal rules restrict any use of the information to criminally investigate or prosecute any alcohol or drug abuse patient.[facility] HospitalIn the event this information is protected by the Federal Confidentiality of Alcohol and Drug Abuse Patient Records regulations: The Federal rules restrict any use of the information to criminally investigate or prosecute any alcohol or drug abuse patient.[facility] HospitalIn the event this information is protected by the Federal Confidentiality of Alcohol and Drug Abuse Patient Records regulations: The Federal rules restrict any use of the information to criminally investigate or prosecute any alcohol or drug abuse patient.[facility] HospitalIn the event this information is protected by the Federal Confidentiality of Alcohol and Drug Abuse Patient Records regulations: The Federal rules restrict any use of the information to criminally investigate or prosecute any alcohol or drug abuse patient.[facility] HospitalIn the event this information is protected by the Federal Confidentiality of Alcohol and Drug Abuse Patient Records regulations: The Federal rules restrict any use of the information to criminally investigate or prosecute any alcohol or drug abuse patient.[facility] HospitalIn the event this information is protected by the Federal Confidentiality of Alcohol and Drug Abuse Patient Records regulations: The Federal rules restrict any use of the information to criminally investigate or prosecute any alcohol or drug abuse patient.[facility] HospitalIn the event this information is protected by the Federal Confidentiality of Alcohol and Drug Abuse Patient Records regulations: The Federal rules restrict any use of the information to criminally investigate or prosecute any alcohol or drug abuse patient.[facility] HospitalIn the event this information is protected by the Federal Confidentiality of Alcohol and Drug Abuse Patient Records regulations: The Federal rules restrict any use of the information to criminally investigate or prosecute any alcohol or drug abuse patient.[facility]In the event this information is protected by the Federal Confidentiality of Alcohol and Drug Abuse Patient Records regulations: The Federal rules restrict any use of the information to criminally investigate or prosecute any alcohol or drug abuse patient.[facility] HospitalIn the event this information is protected by the Federal Confidentiality of Alcohol and Drug Abuse Patient Records regulations: The Federal rules restrict any use of the information to criminally investigate or prosecute any alcohol or drug abuse patient.[facility] HospitalIn the event this information is protected by the Federal Confidentiality of Alcohol and Drug Abuse Patient Records regulations: The Federal rules restrict any use of the information to criminally investigate or prosecute any alcohol or drug abuse patient.[facility] HospitalIn the event this information is protected by the Federal Confidentiality of Alcohol and Drug Abuse Patient Records regulations: The Federal rules restrict any use of the information to criminally investigate or prosecute any alcohol or drug abuse patient.[facility] HospitalIn the event this information is protected by the Federal Confidentiality of Alcohol and Drug Abuse Patient Records regulations: The Federal rules restrict any use of the information to criminally investigate or prosecute any alcohol or drug abuse patient.[facility] HospitalIn the event this information is protected by the Federal Confidentiality of Alcohol and Drug Abuse Patient Records regulations: The Federal rules restrict any use of the information to criminally investigate or prosecute any alcohol or drug abuse patient.[facility] HospitalIn the event this information is protected by the Federal Confidentiality of Alcohol and Drug Abuse Patient Records regulations: The Federal rules restrict any use of the information to criminally investigate or prosecute any alcohol or drug abuse patient.[facility] HospitalIn the event this information is protected by the Federal Confidentiality of Alcohol and Drug Abuse Patient Records regulations: The Federal rules restrict any use of the information to criminally investigate or prosecute any alcohol or drug abuse patient.[facility] HospitalIn the event this information is protected by the Federal Confidentiality of Alcohol and Drug Abuse Patient Records regulations: The Federal rules restrict any use of the information to criminally investigate or prosecute any alcohol or drug abuse patient.[facility] HospitalIn the event this information is protected by the Federal Confidentiality of Alcohol and Drug Abuse Patient Records regulations: The Federal rules restrict any use of the information to criminally investigate or prosecute any alcohol or drug abuse patient.[facility] HospitalIn the event this information is protected by the Federal Confidentiality of Alcohol and Drug Abuse Patient Records regulations: The Federal rules restrict any use of the information to criminally investigate or prosecute any alcohol or drug abuse patient.[facility] HospitalIn the event this information is protected by the Federal Confidentiality of Alcohol and Drug Abuse Patient Records regulations: The Federal rules restrict any use of the information to criminally investigate or prosecute any alcohol or drug abuse patient.[facility] HospitalIn the event this information is protected by the Federal Confidentiality of Alcohol and Drug Abuse Patient Records regulations: The Federal rules restrict any use of the information to criminally investigate or prosecute any alcohol or drug abuse patient.[facility] HospitalIn the event this information is protected by the Federal Confidentiality of Alcohol and Drug Abuse Patient Records regulations: The Federal rules restrict any use of the information to criminally investigate or prosecute any alcohol or drug abuse patient.[facility] HospitalIn the event this information is protected by the Federal Confidentiality of Alcohol and Drug Abuse Patient Records regulations: The Federal rules restrict any use of the information to criminally investigate or prosecute any alcohol or drug abuse patient.[facility] HospitalIn the event this information is protected by the Federal Confidentiality of Alcohol and Drug Abuse Patient Records regulations: The Federal rules restrict any use of the information to criminally investigate or prosecute any alcohol or drug abuse patient.[facility] HospitalIn the event this information is protected by the Federal Confidentiality of Alcohol and Drug Abuse Patient Records regulations: The Federal rules restrict any use of the information to criminally investigate or prosecute any alcohol or drug abuse patient.[facility] HospitalIn the event this information is protected by the Federal Confidentiality of Alcohol and Drug Abuse Patient Records regulations: The Federal rules restrict any use of the information to criminally investigate or prosecute any alcohol or drug abuse patient.[facility] HospitalIn the event this information is protected by the Federal Confidentiality of Alcohol and Drug Abuse Patient Records regulations: The Federal rules restrict any use of the information to criminally investigate or prosecute any alcohol or drug abuse patient.[facility] HospitalIn the event this information is protected by the Federal Confidentiality of Alcohol and Drug Abuse Patient Records regulations: The Federal rules restrict any use of the information to criminally investigate or prosecute any alcohol or drug abuse patient.[facility] HospitalIn the event this information is protected by the Federal Confidentiality of Alcohol and Drug Abuse Patient Records regulations: The Federal rules restrict any use of the information to criminally investigate or prosecute any alcohol or drug abuse patient.[facility] HospitalIn the event this information is protected by the Federal Confidentiality of Alcohol and Drug Abuse Patient Records regulations: The Federal rules restrict any use of the information to criminally investigate or prosecute any alcohol or drug abuse patient.[facility] HospitalIn the event this information is protected by the Federal Confidentiality of Alcohol and Drug Abuse Patient Records regulations: The Federal rules restrict any use of the information to criminally investigate or prosecute any alcohol or drug abuse patient.[facility] HospitalIn the event this information is protected by the Federal Confidentiality of Alcohol and Drug Abuse Patient Records regulations: The Federal rules restrict any use of the information to criminally investigate or prosecute any alcohol or drug abuse patient.[facility] HospitalIn the event this information is protected by the Federal Confidentiality of Alcohol and Drug Abuse Patient Records regulations: The Federal rules restrict any use of the information to criminally investigate or prosecute any alcohol or drug abuse patient.[facility] HospitalIn the event this information is protected by the Federal Confidentiality of Alcohol and Drug Abuse Patient Records regulations: The Federal rules restrict any use of the information to criminally investigate or prosecute any alcohol or drug abuse patient.[facility] HospitalIn the event this information is protected by the Federal Confidentiality of Alcohol and Drug Abuse Patient Records regulations: The Federal rules restrict any use of the information to criminally investigate or prosecute any alcohol or drug abuse patient.[facility] HospitalIn the event this information is protected by the Federal Confidentiality of Alcohol and Drug Abuse Patient Records regulations: The Federal rules restrict any use of the information to criminally investigate or prosecute any alcohol or drug abuse patient.[facility] HospitalIn the event this information is protected by the Federal Confidentiality of Alcohol and Drug Abuse Patient Records regulations: The Federal rules restrict any use of the information to criminally investigate or prosecute any alcohol or drug abuse patient.[facility] HospitalIn the event this information is protected by the Federal Confidentiality of Alcohol and Drug Abuse Patient Records regulations: The Federal rules restrict any use of the information to criminally investigate or prosecute any alcohol or drug abuse patient.[facility] HospitalIn the event this information is protected by the Federal Confidentiality of Alcohol and Drug Abuse Patient Records regulations: The Federal rules restrict any use of the information to criminally investigate or prosecute any alcohol or drug abuse patient.[facility] HospitalIn the event this information is protected by the Federal Confidentiality of Alcohol and Drug Abuse Patient Records regulations: The Federal rules restrict any use of the information to criminally investigate or prosecute any alcohol or drug abuse patient.[facility] HospitalIn the event this information is protected by the Federal Confidentiality of Alcohol and Drug Abuse Patient Records regulations: The Federal rules restrict any use of the information to criminally investigate or prosecute any alcohol or drug abuse patient.[facility] HospitalIn the event this information is protected by the Federal Confidentiality of Alcohol and Drug Abuse Patient Records regulations: The Federal rules restrict any use of the information to criminally investigate or prosecute any alcohol or drug abuse patient.[facility] HospitalIn the event this information is protected by the Federal Confidentiality of Alcohol and Drug Abuse Patient Records regulations: The Federal rules restrict any use of the information to criminally investigate or prosecute any alcohol or drug abuse patient.[facility] HospitalIn the event this information is protected by the Federal Confidentiality of Alcohol and Drug Abuse Patient Records regulations: The Federal rules restrict any use of the information to criminally investigate or prosecute any alcohol or drug abuse patient.[facility] HospitalIn the event this information is protected by the Federal Confidentiality of Alcohol and Drug Abuse Patient Records regulations: The Federal rules restrict any use of the information to criminally investigate or prosecute any alcohol or drug abuse patient.[facility] HospitalIn the event this information is protected by the Federal Confidentiality of Alcohol and Drug Abuse Patient Records regulations: The Federal rules restrict any use of the information to criminally investigate or prosecute any alcohol or drug abuse patient.[facility] HospitalIn the event this information is protected by the Federal Confidentiality of Alcohol and Drug Abuse Patient Records regulations: The Federal rules restrict any use of the information to criminally investigate or prosecute any alcohol or drug abuse patient.[facility] HospitalIn the event this information is protected by the Federal Confidentiality of Alcohol and Drug Abuse Patient Records regulations: The Federal rules restrict any use of the information to criminally investigate or prosecute any alcohol or drug abuse patient.[facility] HospitalIn the event this information is protected by the Federal Confidentiality of Alcohol and Drug Abuse Patient Records regulations: The Federal rules restrict any use of the information to criminally investigate or prosecute any alcohol or drug abuse patient.[facility] HospitalIn the event this information is protected by the Federal Confidentiality of Alcohol and Drug Abuse Patient Records regulations: The Federal rules restrict any use of the information to criminally investigate or prosecute any alcohol or drug abuse patient.[facility] HospitalIn the event this information is protected by the Federal Confidentiality of Alcohol and Drug Abuse Patient Records regulations: The Federal rules restrict any use of the information to criminally investigate or prosecute any alcohol or drug abuse patient.[facility] HospitalIn the event this information is protected by the Federal Confidentiality of Alcohol and Drug Abuse Patient Records regulations: The Federal rules restrict any use of the information to criminally investigate or prosecute any alcohol or drug abuse patient.[facility] HospitalIn the event this information is protected by the Federal Confidentiality of Alcohol and Drug Abuse Patient Records regulations: The Federal rules restrict any use of the information to criminally investigate or prosecute any alcohol or drug abuse patient.[facility] HospitalIn the event this information is protected by the Federal Confidentiality of Alcohol and Drug Abuse Patient Records regulations: The Federal rules restrict any use of the information to criminally investigate or prosecute any alcohol or drug abuse patient.[facility] HospitalIn the event this information is protected by the Federal Confidentiality of Alcohol and Drug Abuse Patient Records regulations: The Federal rules restrict any use of the information to criminally investigate or prosecute any alcohol or drug abuse patient.[facility] HospitalIn the event this information is protected by the Federal Confidentiality of Alcohol and Drug Abuse Patient Records regulations: The Federal rules restrict any use of the information to criminally investigate or prosecute any alcohol or drug abuse patient.[facility] HospitalIn the event this information is protected by the Federal Confidentiality of Alcohol and Drug Abuse Patient Records regulations: The Federal rules restrict any use of the information to criminally investigate or prosecute any alcohol or drug abuse patient.[facility] HospitalIn the event this information is protected by the Federal Confidentiality of Alcohol and Drug Abuse Patient Records regulations: The Federal rules restrict any use of the information to criminally investigate or prosecute any alcohol or drug abuse patient.[facility] HospitalIn the event this information is protected by the Federal Confidentiality of Alcohol and Drug Abuse Patient Records regulations: The Federal rules restrict any use of the information to criminally investigate or prosecute any alcohol or drug abuse patient.[facility] HospitalIn the event this information is protected by the Federal Confidentiality of Alcohol and Drug Abuse Patient Records regulations: The Federal rules restrict any use of the information to criminally investigate or prosecute any alcohol or drug abuse patient.[facility] HospitalIn the event this information is protected by the Federal Confidentiality of Alcohol and Drug Abuse Patient Records regulations: The Federal rules restrict any use of the information to criminally investigate or prosecute any alcohol or drug abuse patient.[facility] HospitalIn the event this information is protected by the Federal Confidentiality of Alcohol and Drug Abuse Patient Records regulations: The Federal rules restrict any use of the information to criminally investigate or prosecute any alcohol or drug abuse patient.[facility] HospitalIn the event this information is protected by the Federal Confidentiality of Alcohol and Drug Abuse Patient Records regulations: The Federal rules restrict any use of the information to criminally investigate or prosecute any alcohol or drug abuse patient.[facility] HospitalIn the event this information is protected by the Federal Confidentiality of Alcohol and Drug Abuse Patient Records regulations: The Federal rules restrict any use of the information to criminally investigate or prosecute any alcohol or drug abuse patient.[facility] HospitalIn the event this information is protected by the Federal Confidentiality of Alcohol and Drug Abuse Patient Records regulations: The Federal rules restrict any use of the information to criminally investigate or prosecute any alcohol or drug abuse patient.[facility] HospitalIn the event this information is protected by the Federal Confidentiality of Alcohol and Drug Abuse Patient Records regulations: The Federal rules restrict any use of the information to criminally investigate or prosecute any alcohol or drug abuse patient.[facility] HospitalIn the event this information is protected by the Federal Confidentiality of Alcohol and Drug Abuse Patient Records regulations: The Federal rules restrict any use of the information to criminally investigate or prosecute any alcohol or drug abuse patient.[facility] HospitalIn the event this information is protected by the Federal Confidentiality of Alcohol and Drug Abuse Patient Records regulations: The Federal rules restrict any use of the information to criminally investigate or prosecute any alcohol or drug abuse patient.[facility] HospitalIn the event this information is protected by the Federal Confidentiality of Alcohol and Drug Abuse Patient Records regulations: The Federal rules restrict any use of the information to criminally investigate or prosecute any alcohol or drug abuse patient.[facility] HospitalIn the event this information is protected by the Federal Confidentiality of Alcohol and Drug Abuse Patient Records regulations: The Federal rules restrict any use of the information to criminally investigate or prosecute any alcohol or drug abuse patient.[facility] HospitalIn the event this information is protected by the Federal Confidentiality of Alcohol and Drug Abuse Patient Records regulations: The Federal rules restrict any use of the information to criminally investigate or prosecute any alcohol or drug abuse patient.[facility] HospitalIn the event this information is protected by the Federal Confidentiality of Alcohol and Drug Abuse Patient Records regulations: The Federal rules restrict any use of the information to criminally investigate or prosecute any alcohol or drug abuse patient.[facility] HospitalIn the event this information is protected by the Federal Confidentiality of Alcohol and Drug Abuse Patient Records regulations: The Federal rules restrict any use of the information to criminally investigate or prosecute any alcohol or drug abuse patient.[facility] HospitalIn the event this information is protected by the Federal Confidentiality of Alcohol and Drug Abuse Patient Records regulations: The Federal rules restrict any use of the information to criminally investigate or prosecute any alcohol or drug abuse patient.[facility] HospitalIn the event this information is protected by the Federal Confidentiality of Alcohol and Drug Abuse Patient Records regulations: The Federal rules restrict any use of the information to criminally investigate or prosecute any alcohol or drug abuse patient.[facility] HospitalIn the event this information is protected by the Federal Confidentiality of Alcohol and Drug Abuse Patient Records regulations: The Federal rules restrict any use of the information to criminally investigate or prosecute any alcohol or drug abuse patient.[facility] HospitalIn the event this information is protected by the Federal Confidentiality of Alcohol and Drug Abuse Patient Records regulations: The Federal rules restrict any use of the information to criminally investigate or prosecute any alcohol or drug abuse patient.[facility]In the event this information is protected by the Federal Confidentiality of Alcohol and Drug Abuse Patient Records regulations: The Federal rules restrict any use of the information to criminally investigate or prosecute any alcohol or drug abuse patient.[facility] HospitalIn the event this information is protected by the Federal Confidentiality of Alcohol and Drug Abuse Patient Records regulations: The Federal rules restrict any use of the information to criminally investigate or prosecute any alcohol or drug abuse patient.[facility]In the event this information is protected by the Federal Confidentiality of Alcohol and Drug Abuse Patient Records regulations: The Federal rules restrict any use of the information to criminally investigate or prosecute any alcohol or drug abuse patient.[facility]In the event this information is protected by the Federal Confidentiality of Alcohol and Drug Abuse Patient Records regulations: The Federal rules restrict any use of the information to criminally investigate or prosecute any alcohol or drug abuse patient.[facility]In the event this information is protected by the Federal Confidentiality of Alcohol and Drug Abuse Patient Records regulations: The Federal rules restrict any use of the information to criminally investigate or prosecute any alcohol or drug abuse patient.[facility]In the event this information is protected by the Federal Confidentiality of Alcohol and Drug Abuse Patient Records regulations: The Federal rules restrict any use of the information to criminally investigate or prosecute any alcohol or drug abuse patient.[facility]In the event this information is protected by the Federal Confidentiality of Alcohol and Drug Abuse Patient Records regulations: The Federal rules restrict any use of the information to criminally investigate or prosecute any alcohol or drug abuse patient.[facility]In the event this information is protected by the Federal Confidentiality of Alcohol and Drug Abuse Patient Records regulations: The Federal rules restrict any use of the information to criminally investigate or prosecute any alcohol or drug abuse patient.[facility]In the event this information is protected by the Federal Confidentiality of Alcohol and Drug Abuse Patient Records regulations: The Federal rules restrict any use of the information to criminally investigate or prosecute any alcohol or drug abuse patient.[facility]In the event this information is protected by the Federal Confidentiality of Alcohol and Drug Abuse Patient Records regulations: The Federal rules restrict any use of the information to criminally investigate or prosecute any alcohol or drug abuse patient.[facility]In the event this information is protected by the Federal Confidentiality of Alcohol and Drug Abuse Patient Records regulations: The Federal rules restrict any use of the information to criminally investigate or prosecute any alcohol or drug abuse patient.[facility] HospitalIn the event this information is protected by the Federal Confidentiality of Alcohol and Drug Abuse Patient Records regulations: The Federal rules restrict any use of the information to criminally investigate or prosecute any alcohol or drug abuse patient.[facility] HospitalIn the event this information is protected by the Federal Confidentiality of Alcohol and Drug Abuse Patient Records regulations: The Federal rules restrict any use of the information to criminally investigate or prosecute any alcohol or drug abuse patient.[facility] HospitalIn the event this information is protected by the Federal Confidentiality of Alcohol and Drug Abuse Patient Records regulations: The Federal rules restrict any use of the information to criminally investigate or prosecute any alcohol or drug abuse patient.[facility] HospitalIn the event this information is protected by the Federal Confidentiality of Alcohol and Drug Abuse Patient Records regulations: The Federal rules restrict any use of the information to criminally investigate or prosecute any alcohol or drug abuse patient.[facility] HospitalIn the event this information is protected by the Federal Confidentiality of Alcohol and Drug Abuse Patient Records regulations: The Federal rules restrict any use of the information to criminally investigate or prosecute any alcohol or drug abuse patient.[facility] HospitalIn the event this information is protected by the Federal Confidentiality of Alcohol and Drug Abuse Patient Records regulations: The Federal rules restrict any use of the information to criminally investigate or prosecute any alcohol or drug abuse patient.[facility] HospitalIn the event this information is protected by the Federal Confidentiality of Alcohol and Drug Abuse Patient Records regulations: The Federal rules restrict any use of the information to criminally investigate or prosecute any alcohol or drug abuse patient.[facility] HospitalIn the event this information is protected by the Federal Confidentiality of Alcohol and Drug Abuse Patient Records regulations: The Federal rules restrict any use of the information to criminally investigate or prosecute any alcohol or drug abuse patient.[facility] HospitalIn the event this information is protected by the Federal Confidentiality of Alcohol and Drug Abuse Patient Records regulations: The Federal rules restrict any use of the information to criminally investigate or prosecute any alcohol or drug abuse patient.[facility] HospitalIn the event this information is protected by the Federal Confidentiality of Alcohol and Drug Abuse Patient Records regulations: The Federal rules restrict any use of the information to criminally investigate or prosecute any alcohol or drug abuse patient.[facility] HospitalIn the event this information is protected by the Federal Confidentiality of Alcohol and Drug Abuse Patient Records regulations: The Federal rules restrict any use of the information to criminally investigate or prosecute any alcohol or drug abuse patient.[facility] HospitalIn the event this information is protected by the Federal Confidentiality of Alcohol and Drug Abuse Patient Records regulations: The Federal rules restrict any use of the information to criminally investigate or prosecute any alcohol or drug abuse patient.[facility] HospitalIn the event this information is protected by the Federal Confidentiality of Alcohol and Drug Abuse Patient Records regulations: The Federal rules restrict any use of the information to criminally investigate or prosecute any alcohol or drug abuse patient.[facility] HospitalIn the event this information is protected by the Federal Confidentiality of Alcohol and Drug Abuse Patient Records regulations: The Federal rules restrict any use of the information to criminally investigate or prosecute any alcohol or drug abuse patient.[facility] HospitalIn the event this information is protected by the Federal Confidentiality of Alcohol and Drug Abuse Patient Records regulations: The Federal rules restrict any use of the information to criminally investigate or prosecute any alcohol or drug abuse patient.[facility] HospitalIn the event this information is protected by the Federal Confidentiality of Alcohol and Drug Abuse Patient Records regulations: The Federal rules restrict any use of the information to criminally investigate or prosecute any alcohol or drug abuse patient.[facility] HospitalIn the event this information is protected by the Federal Confidentiality of Alcohol and Drug Abuse Patient Records regulations: The Federal rules restrict any use of the information to criminally investigate or prosecute any alcohol or drug abuse patient.[facility] HospitalIn the event this information is protected by the Federal Confidentiality of Alcohol and Drug Abuse Patient Records regulations: The Federal rules restrict any use of the information to criminally investigate or prosecute any alcohol or drug abuse patient.[facility] HospitalIn the event this information is protected by the Federal Confidentiality of Alcohol and Drug Abuse Patient Records regulations: The Federal rules restrict any use of the information to criminally investigate or prosecute any alcohol or drug abuse patient.[facility] HospitalIn the event this information is protected by the Federal Confidentiality of Alcohol and Drug Abuse Patient Records regulations: The Federal rules restrict any use of the information to criminally investigate or prosecute any alcohol or drug abuse patient.[facility] HospitalIn the event this information is protected by the Federal Confidentiality of Alcohol and Drug Abuse Patient Records regulations: The Federal rules restrict any use of the information to criminally investigate or prosecute any alcohol or drug abuse patient.[facility] HospitalIn the event this information is protected by the Federal Confidentiality of Alcohol and Drug Abuse Patient Records regulations: The Federal rules restrict any use of the information to criminally investigate or prosecute any alcohol or drug abuse patient.[facility] HospitalIn the event this information is protected by the Federal Confidentiality of Alcohol and Drug Abuse Patient Records regulations: The Federal rules restrict any use of the information to criminally investigate or prosecute any alcohol or drug abuse patient.[facility] HospitalIn the event this information is protected by the Federal Confidentiality of Alcohol and Drug Abuse Patient Records regulations: The Federal rules restrict any use of the information to criminally investigate or prosecute any alcohol or drug abuse patient.[facility] HospitalIn the event this information is protected by the Federal Confidentiality of Alcohol and Drug Abuse Patient Records regulations: The Federal rules restrict any use of the information to criminally investigate or prosecute any alcohol or drug abuse patient.[facility] HospitalIn the event this information is protected by the Federal Confidentiality of Alcohol and Drug Abuse Patient Records regulations: The Federal rules restrict any use of the information to criminally investigate or prosecute any alcohol or drug abuse patient.[facility] HospitalIn the event this information is protected by the Federal Confidentiality of Alcohol and Drug Abuse Patient Records regulations: The Federal rules restrict any use of the information to criminally investigate or prosecute any alcohol or drug abuse patient.[facility] HospitalIn the event this information is protected by the Federal Confidentiality of Alcohol and Drug Abuse Patient Records regulations: The Federal rules restrict any use of the information to criminally investigate or prosecute any alcohol or drug abuse patient.[facility] HospitalIn the event this information is protected by the Federal Confidentiality of Alcohol and Drug Abuse Patient Records regulations: The Federal rules restrict any use of the information to criminally investigate or prosecute any alcohol or drug abuse patient.[facility] HospitalIn the event this information is protected by the Federal Confidentiality of Alcohol and Drug Abuse Patient Records regulations: The Federal rules restrict any use of the information to criminally investigate or prosecute any alcohol or drug abuse patient.[facility] HospitalIn the event this information is protected by the Federal Confidentiality of Alcohol and Drug Abuse Patient Records regulations: The Federal rules restrict any use of the information to criminally investigate or prosecute any alcohol or drug abuse patient.[facility] HospitalIn the event this information is protected by the Federal Confidentiality of Alcohol and Drug Abuse Patient Records regulations: The Federal rules restrict any use of the information to criminally investigate or prosecute any alcohol or drug abuse patient.[facility] HospitalIn the event this information is protected by the Federal Confidentiality of Alcohol and Drug Abuse Patient Records regulations: The Federal rules restrict any use of the information to criminally investigate or prosecute any alcohol or drug abuse patient.[facility] HospitalIn the event this information is protected by the Federal Confidentiality of Alcohol and Drug Abuse Patient Records regulations: The Federal rules restrict any use of the information to criminally investigate or prosecute any alcohol or drug abuse patient.[facility] HospitalIn the event this information is protected by the Federal Confidentiality of Alcohol and Drug Abuse Patient Records regulations: The Federal rules restrict any use of the information to criminally investigate or prosecute any alcohol or drug abuse patient.[facility] HospitalIn the event this information is protected by the Federal Confidentiality of Alcohol and Drug Abuse Patient Records regulations: The Federal rules restrict any use of the information to criminally investigate or prosecute any alcohol or drug abuse patient.[facility] HospitalIn the event this information is protected by the Federal Confidentiality of Alcohol and Drug Abuse Patient Records regulations: The Federal rules restrict any use of the information to criminally investigate or prosecute any alcohol or drug abuse patient.[facility] HospitalIn the event this information is protected by the Federal Confidentiality of Alcohol and Drug Abuse Patient Records regulations: The Federal rules restrict any use of the information to criminally investigate or prosecute any alcohol or drug abuse patient.[facility] HospitalIn the event this information is protected by the Federal Confidentiality of Alcohol and Drug Abuse Patient Records regulations: The Federal rules restrict any use of the information to criminally investigate or prosecute any alcohol or drug abuse patient.[facility] HospitalIn the event this information is protected by the Federal Confidentiality of Alcohol and Drug Abuse Patient Records regulations: The Federal rules restrict any use of the information to criminally investigate or prosecute any alcohol or drug abuse patient.[facility] HospitalIn the event this information is protected by the Federal Confidentiality of Alcohol and Drug Abuse Patient Records regulations: The Federal rules restrict any use of the information to criminally investigate or prosecute any alcohol or drug abuse patient.[facility] HospitalIn the event this information is protected by the Federal Confidentiality of Alcohol and Drug Abuse Patient Records regulations: The Federal rules restrict any use of the information to criminally investigate or prosecute any alcohol or drug abuse patient.[facility] HospitalIn the event this information is protected by the Federal Confidentiality of Alcohol and Drug Abuse Patient Records regulations: The Federal rules restrict any use of the information to criminally investigate or prosecute any alcohol or drug abuse patient.[facility] HospitalIn the event this information is protected by the Federal Confidentiality of Alcohol and Drug Abuse Patient Records regulations: The Federal rules restrict any use of the information to criminally investigate or prosecute any alcohol or drug abuse patient.[facility] HospitalIn the event this information is protected by the Federal Confidentiality of Alcohol and Drug Abuse Patient Records regulations: The Federal rules restrict any use of the information to criminally investigate or prosecute any alcohol or drug abuse patient.[facility] HospitalIn the event this information is protected by the Federal Confidentiality of Alcohol and Drug Abuse Patient Records regulations: The Federal rules restrict any use of the information to criminally investigate or prosecute any alcohol or drug abuse patient.[facility] HospitalIn the event this information is protected by the Federal Confidentiality of Alcohol and Drug Abuse Patient Records regulations: The Federal rules restrict any use of the information to criminally investigate or prosecute any alcohol or drug abuse patient.[facility] HospitalIn the event this information is protected by the Federal Confidentiality of Alcohol and Drug Abuse Patient Records regulations: The Federal rules restrict any use of the information to criminally investigate or prosecute any alcohol or drug abuse patient.[facility] HospitalIn the event this information is protected by the Federal Confidentiality of Alcohol and Drug Abuse Patient Records regulations: The Federal rules restrict any use of the information to criminally investigate or prosecute any alcohol or drug abuse patient.[facility] HospitalIn the event this information is protected by the Federal Confidentiality of Alcohol and Drug Abuse Patient Records regulations: The Federal rules restrict any use of the information to criminally investigate or prosecute any alcohol or drug abuse patient.[facility] HospitalIn the event this information is protected by the Federal Confidentiality of Alcohol and Drug Abuse Patient Records regulations: The Federal rules restrict any use of the information to criminally investigate or prosecute any alcohol or drug abuse patient.[facility] HospitalIn the event this information is protected by the Federal Confidentiality of Alcohol and Drug Abuse Patient Records regulations: The Federal rules restrict any use of the information to criminally investigate or prosecute any alcohol or drug abuse patient.[facility] HospitalIn the event this information is protected by the Federal Confidentiality of Alcohol and Drug Abuse Patient Records regulations: The Federal rules restrict any use of the information to criminally investigate or prosecute any alcohol or drug abuse patient.[facility] HospitalIn the event this information is protected by the Federal Confidentiality of Alcohol and Drug Abuse Patient Records regulations: The Federal rules restrict any use of the information to criminally investigate or prosecute any alcohol or drug abuse patient.[facility] HospitalIn the event this information is protected by the Federal Confidentiality of Alcohol and Drug Abuse Patient Records regulations: The Federal rules restrict any use of the information to criminally investigate or prosecute any alcohol or drug abuse patient.[facility] HospitalIn the event this information is protected by the Federal Confidentiality of Alcohol and Drug Abuse Patient Records regulations: The Federal rules restrict any use of the information to criminally investigate or prosecute any alcohol or drug abuse patient.[facility] HospitalIn the event this information is protected by the Federal Confidentiality of Alcohol and Drug Abuse Patient Records regulations: The Federal rules restrict any use of the information to criminally investigate or prosecute any alcohol or drug abuse patient.[facility] HospitalIn the event this information is protected by the Federal Confidentiality of Alcohol and Drug Abuse Patient Records regulations: The Federal rules restrict any use of the information to criminally investigate or prosecute any alcohol or drug abuse patient.[facility] HospitalIn the event this information is protected by the Federal Confidentiality of Alcohol and Drug Abuse Patient Records regulations: The Federal rules restrict any use of the information to criminally investigate or prosecute any alcohol or drug abuse patient.[facility] HospitalIn the event this information is protected by the Federal Confidentiality of Alcohol and Drug Abuse Patient Records regulations: The Federal rules restrict any use of the information to criminally investigate or prosecute any alcohol or drug abuse patient.[facility] HospitalIn the event this information is protected by the Federal Confidentiality of Alcohol and Drug Abuse Patient Records regulations: The Federal rules restrict any use of the information to criminally investigate or prosecute any alcohol or drug abuse patient.[facility] Reason for Visit (unrecogniz ed section [...] abdominal location Procedures CONSULT TO GASTROENTEROLOGY OFFICE/OUTPATIENT [facility] MDM 60-74 MINUTES Antonio Smalls MD [address] [place] [address] Referral ID Status Reason Start Date Expiration Date V isits Requested Visits Authorized [id number] Closed PCP Requested Referral 04/18/2022 04/18/2023 1 [...] BIOPSY OF LIVER [facility] [address] [place] [address] Referral ID Status Reason Start Date Expiration Date Visits Re quested Visits Authorized [id number] 1 1 Reason Onset Date Comments Refill [...] HIGH MDM 60-74 MINUTES Zuleika Perez PA-C [address] [facility] [place] [address] Referral ID Status Reason Start Date Expiration Date V isits Requested Visits Authorized [id number] Closed PCP Requested Referral 08/08/2022 08/08/2023 1 1 Reason Comments Throat Problem Pt reported throat p ain, x1 wk. Reason Comments Sleep Problem Sleepy all day -- x months Specialty Diagnoses / Procedures Referred By Tree Referred To Contact Diagnoses Malaise and fatigue Snoring Procedures CONSULT TO SLEEP MEDICINE - ADULT OFFICE/OUTPATIENT [facility] 60-74 MINUTES Antonio Smalls MD [address] [place] [address] Referral ID Status Reason Start Date Expiration Date V isits Requested Visits Authorized [id number] Closed PCP Requested Referral 08/27/2022 08/27/2023 1 [...] ESTABLISH WITH PRIMARY CARE NEW PATIENT OFFICE/OUTPATIENT [facility] 60-74 MINUTES Antonio Smalls MD [address] [place] [address] [facility] [address] [place] [address] Referral ID Status Reason Start Date Expiration Date V isits Requested Visits Authorized [id number] Closed PCP Requested Referral 10/09/2022 10/09/2023 1 1 Reason Comments Cough Congestion, sneezing x 1.5 weeks Reason Comments Spirometry Specialty Diagnoses / Procedures [facility] Diagnoses SOBOE (shortness of breath on exertion) Procedures SPIROMETRY WITH DILATOR IF OBSTRUCTED BRNCDILAT RSPSE SPMTRY PRE&POST-BRNCDILAT ADMN 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, W[employer]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 [address] [place] [address] [facility] [address] [place] [address] Referral ID Status Reason Start Date Expiration Date V isits Requested Visits Authorized [id number] Closed Auto-Generate d Referral 10/28/2022 11/27/2023 1 [...] REAL TIME W/IMAGE LIMITED Zuleika Avalos PA-C [address] [place] [address] [place] [address] Referral ID Status Reason Start Date Expiration Date V isits Requested Visits Authorized [id number] Closed Auto-Generate d Referral 04/22/2023 05/21/2024 1 1 Specialty Diagnoses / Procedures Referred By Contac t Referred To Contact [facility] Diagnoses Secondary amenorrhea Procedures US FEMALE PELVIS TRANSVAG US TRANSVAGINAL Kelly Nunez APRN.CNLiza [address] [address] [place] [address] Referral ID Status Reason Start Date Expiration Date V isits Requested Visits Authorized [id number] Closed Auto-Generate d Referral 04/09/2023 05/08/2024 1 1 Specialty Diagnoses / Procedures Referred By Contac t Referred To Contact [facility] Diagnoses Abnormal laboratory test Malaise and fatigue Diarrhea, unspecified type Abdominal pain, unspecified abdominal location Procedures US ABD RT UPPER QUADRANT US ABDOMINAL REAL TIME W/IMAGE LIMITED Antonio Smalls MD [address] [place] [address] [place] [address] Referral ID Status Reason Start Date Expiration Date V isits Requested Visits Authorized [id number] Closed Auto-Generate d Referral 04/18/2022 05/18/2023 1 [...] ORTHOPAEDICS OFFICE/OUTPATIENT NEW HIGH MDM 60 MINUTES Terrence Hill, HARLAN.CRIBBER [address] [place] [address] Referral ID Status Reason Start Date Expiration Date V isits Requested Visits Authorized [id number] Closed PCP Requested Referral 12/17/2023 12/16/2024 1 [...] Comments ER F/U Reason Comments ER F/U [facility] ER fatigue and h aving trouble sleep at nightdoes try and take naps during the day when able. Reason Comments F/U 3 Month still very tired and when that happens becomes light headed. Reason Comments ED Follow-up lightheadedness, fat giue x 1 month Reason Comments Recheck was seen in [facility] ER f or elevated heart rate Reason Comments Recheck Reason Onset Date Comments Refill Request 01/10/2025 Reason Onset Date Comments Refill Request 02/13/2025 Care Teams (unrecognized sec tion and content) Human Resources Partner Relationship Specialty Start Date End Date Antonio Smalls MD [address] [place], [place] [id number] PCP - General 02/26/06 Human Resources Partner Relationship Specialty Start Date End Date Antonio Smalls MD [address] [place], [place] [address] PCP - General 02/26/06 Human Resources Partner Relationship Specialty Start Date End Date Antonio Smalls MD [address] [place] [address] PCP - General 02/26/06 Human Resources Partner Relationship Specialty Start Date End Date Antonio Smalls MD [address] [place], [place] [address] PCP - General 02/26/06 Human Resources Partner Relationship Specialty Start Date End Date Antonio Smalls MD [address] [place], [place] [address] PCP - General 02/26/06 Human Resources Partner Relationship Specialty Start Date End Date PlayAntonio cheatham MD [address] [facility] [place] [address] PCP - General 02/26/06 Human Resources Partner Relationship Specialty Start Date End Date PlayAntonio cheatham MD [address] [facility] [place] [address] PCP - General 02/26/06 Human Resources Partner Relationship Specialty Start Date End Date PlayAntonio cheatham MD [address] [facility] [place] [address] PCP - General 02/26/06 Human Resources Partner Relationship Specialty [place] [address] [place] [address], [place] [address] PCP - General 02/26/06 Human Resources Partner Relationship Specialty Start Date End Date PlayAntonio cheatham MD [address] [facility] [place] [address] PCP - General 02/26/06 Human Resources Partner Relationship Specialty Start [place] [address] [place] [address], [place] [address] PCP - General 02/26/06 Human Resources Partner Relationship Specialty Start Date End Date Antonio Smalls MD [address] [facility] [place] [address] PCP - General 02/26/06 Human Resources Partner Relationship Specialty Start [place] [address] [place] [address], [place] [address] PCP - General 02/26/06 Human Resources Partner Relationship Specialty Start Date End Date PlayAntonio cheatham MD [address] [facility] [place] [address] PCP - General 02/26/06 Human Resources Partner Relationship Specialty Start Date End Date Playl, Antonio M, MD [address] [facility] [place] [address] PCP - General 02/26/06 Human Resources Partner Relationship Specialty Start Date End Date Antonio Smalls MD [address] [facility] [place] [address] PCP - General 02/26/06 Human Resources Partner Relationship Specialty Start Date End Date Antonio Smalls MD [address] [facility] [place] [address] PCP - General 02/26/06 Human Resources Partner Relationship Specialty Start [place] [address] [place] [address], [place] [address] PCP - General 02/26/06 Human Resources Partner Relationship Specialty Start [place] [address] [place] [address], [place] [address] PCP - General 02/26/06 Human Resources Partner Relationship Specialty Start Date End Date Antonio Smalls MD [address] [facility] [place] [address] PCP - General 02/26/06 Human Resources Partner Relationship Specialty Start Date End Date Antonio Smalls MD [address] [facility] [place] [address] PCP - General 02/26/06 Human Resources Partner Relationship Specialty Start Date End Date Antonio Smalls MD [address] [facility] [place] [address] PCP - General 02/26/06 Human Resources Partner Relationship Specialty Start Date End Date Antonio Smalls MD [address] [facility] [place] [address] PCP - General 02/26/06 Zuleika Perez PA-C [address] [place] [address] Gastroenterology 08/22/22 Human Resources Partner Relationship Specialty Start Date End Date Antonio Smalls MD [address] [place] [address] PCP - General 02/26/06 Zuleika Perez PA-C [address] [place] [address] Gastroenterology 08/22/22 Human Resources Partner Relationship Specialty Start Date End Date Antonio Smalls MD [address] [place] [address] PCP - General 02/26/06 Zuleika Perez PA-C [address] [place] [address] Gastroenterology 08/22/22 Human Resources Partner Relationship Specialty Start Date End Date Antonio Smalls MD [address] [place] [address] PCP - General 02/26/06 Zuleika Perez PA-C [address] [place] [address] Gastroenterology 08/22/22 Human Resources Partner Relationship Specialty Start Date End Date Antonio Smalls MD [address] [place] [address] PCP - General 02/26/06 Zuleika Perez PA-C [address] [place] [address] Gastroenterology 08/22/22 Human Resources Partner Relationship Specialty Start Date End Date Antonio Smalls MD [address] [place] [address] PCP - General 02/26/06 Zuleika Perez PA-C [address] [place] [address] Gastroenterology 08/22/22 Human Resources Partner Relationship Specialty Start Date End Date Antonio Smalls MD [address] [place] [address] PCP - General 02/26/06 Zuleika Perez PA-C [address] [place] [address] Gastroenterology 08/22/22 Human Resources Partner Relationship Specialty Start Date End Date Antonio Smalls MD [address] [place] [address] PCP - General 02/26/06 Zuleika Perez PA-C [address] [place] [address] Gastroenterology 08/22/22 Human Resources Partner Relationship Specialty Start Date End Date Antonio Smalls MD [address] [place] [address] PCP - General 02/26/06 Zuleika Perez PA-C [address] [place] [address] Gastroenterology 08/22/22 Human Resources Partner Relationship Specialty Start Date End Date Antonio Smalls MD [address] [place] [address] PCP - General 02/26/06 Zuleika Perez PA-C [address] [place] [address] Gastroenterology 08/22/22 Human Resources Partner Relationship Specialty Start Date End Date Carlie Arreguin MD [address] [place] [address] PCP - General Family Medicine 10/09/22 Zuleika Perez PA-C [address] [place] [address] Gastroenterology 08/22/22 Human Resources Partner Relationship Specialty Start Date End Date Carlie Arreguin MD [address] [place] [address] PCP - General Family Medicine 10/09/22 Zuleika Perez PA-C [address] [place] [address] Gastroenterology 08/22/22 Human Resources Partner Relationship Specialty Start Date End Date Carlie Arreguin MD [address] [place] [address] PCP - General Family Medicine 10/09/22 Zuleika Perez PA-C [address] [place] [address] Gastroenterology 08/22/22 Human Resources Partner Relationship Specialty Start Date End Date Carlie Arreguin MD [address] [place] [address] PCP - General Family Medicine 10/09/22 Zuleika Perez PA-C [address] [place] [address] Gastroenterology 08/22/22 Human Resources Partner Relationship Specialty Start Date End Date Kate Silva MD [address] [place] [address] PCP - General Internal Medicine 10/28/22 Zuleika Perez PA-C [address] [place] [address] Gastroenterology 08/22/22 Human Resources Partner Relationship Specialty Start Date End Date Kate Silva MD [address] [place] [address] PCP - General Internal Medicine 10/28/22 Zuleika Perez PA-C [address] [place] [address] Gastroenterology 08/22/22 Human Resources Partner Relationship Specialty Start Date End Date Kate Silva MD [address] [place] [address] PCP - General Internal Medicine 10/28/22 Zuleika Perez PA-C [address] [place] [address] Gastroenterology 08/22/22 Human Resources Partner Relationship Specialty Start Date End Date Kate Silva MD [address] [place] [address] PCP - General Internal Medicine 10/28/22 Zuleika Perez PA-C [address] [place] [address] Gastroenterology 08/22/22 Human Resources Partner Relationship Specialty Start Date End Date Kate Silva MD [address] [place] [address] PCP - General Internal Medicine 10/28/22 Zuleika Perez PA-C [address] [place] [address] Gastroenterology 08/22/22 Human Resources Partner Relationship Specialty Start Date End Date Kate Silva MD [address] [place] [address] PCP - General Internal Medicine 10/28/22 Zuleika Perez PA-C [address] [place] [address] Gastroenterology 08/22/22 Human Resources Partner Relationship Specialty Start Date End Date Kate Silva MD [address] [place] [address] PCP - General Internal Medicine 10/28/22 Zuleika Perez PA-C [address] [place] [address] Gastroenterology 08/22/22 Human Resources Partner Relationship Specialty Start Date End Date Kate Sliva MD [address] [place] [address] PCP - General Internal Medicine 10/28/22 Zuleika Perez PA-C [address] [place] [address] Gastroenterology 08/22/22 Human Resources Partner Relationship Specialty Start Date End Date Kate Silva MD [address] [place] [address] PCP - General Internal Medicine 10/28/22 Zuleika Perez PA-C [address] [place] [address] Gastroenterology 08/22/22 Human Resources Partner Relationship Specialty Start Date End Date Kate Silva MD [address] [place] [address] PCP - General Internal Medicine 10/28/22 Zuleika Perez PA-C [address] [place] [address] Gastroenterology 08/22/22 Human Resources Partner Relationship Specialty Start Date End Date Kate Silva MD [address] [place] [address] PCP - General Internal Medicine 10/28/22 Zuleika Perez PA-C [address] [place] [address] Gastroenterology 08/22/22 Human Resources Partner Relationship Specialty Start Date End Date Kate Silva MD [address] [place] [address] PCP - General Internal Medicine 10/28/22 Zuleika Perez PA-C [address] [place] [address] Gastroenterology 08/22/22 Human Resources Partner Relationship Specialty Start Date End Date Kate Silva MD [address] [place] [address] PCP - General Internal Medicine 10/28/22 Zuleika Perez PA-C [address] [place] [address] Gastroenterology 08/22/22 Human Resources Partner Relationship Specialty Start Date End Date Kate Silva MD [address] [place] [address] PCP - General Internal Medicine 10/28/22 Zuleika Perez PA-C [address] [place], [place] [address] Gastroenterology 08/22/22 Human Resources Partner Relationship Specialty Start Date End Date Kate Silva MD [address] [place] [address] PCP - General Internal Medicine 10/28/22 Zuleika Perez PA-C [address] [place], [place] [address] Gastroenterology 08/22/22 Human Resources Partner Relationship Specialty Start Date End Date Kate Silva MD [address] [place] [address] PCP - General Internal Medicine 10/28/22 Zuleika Perez PA-C [address] [place], [place] [address] Gastroenterology 08/22/22 Human Resources Partner Relationship Specialty Start Date End Date Kate Silva MD [address] [place] [address] PCP - General Internal Medicine 10/28/22 Zuleika Perez PA-C [address] [place], [place] [id number] Gastroenterology 08/22/22 Human Resources Partner Relationship Specialty Start Date End Date Kate Silva MD [address] [place] [address] PCP - General Internal Medicine 10/28/22 Zuleika Perez PA-C [address] [facility] [place] [place] [id number] Gastroenterology 08/22/22 Gopal Yanez MD [address] [place] [address] Hematology/Oncology 02/07/23 Human Resources Partner Relationship Specialty Start Date End Date Kate Silva MD [address] [place] [address] PCP - General Internal Medicine 10/28/22 Zuleika Perez PA-C [address] [facility] [place] [place] [address] Gastroenterology 08/22/22 Gopal Yanez MD [address] [place] [address] Hematology/Oncology 02/07/23 Human Resources Partner Relationship Specialty Start Date End Date Kate Silva MD [address] [place] [address] PCP - General Internal Medicine 10/28/22 Zuleika Perez PA-C [address] [facility] [place] [address] Gastroenterology 08/22/22 Gopal Yanez MD [address] [place] [address] Hematology/Oncology 02/07/23 Human Resources Partner Relationship Specialty Start Date End Date Kate Silva MD [address] [place] [address] PCP - General Internal Medicine 10/28/22 Zuleika Perez PA-C [address] [place] [address] Gastroenterology 08/22/22 Gopal Yanez MD [address] [place] [address] Hematology/Oncology 02/07/23 Human Resources Partner Relationship Specialty Start Date End Date Kate Silva MD [address] [place] [address] PCP - General Internal Medicine 10/28/22 Zuleika Perez PA-C [address] [place], [place] [id number] Gastroenterology 08/22/22 Gopal Yanez MD [address] [place] [address] Hematology/Oncology 02/07/23 Human Resources Partner Relationship Specialty Start Date End Date Kate Silva MD [address] [place] [address] PCP - General Internal Medicine 10/28/22 Zuleika Perez PA-C [address] [facility] [address] Gastroenterology 08/22/22 Gopal Yanez MD [address] [place] [facility] [place] [address] Hematology/Oncology 02/07/23 Human Resources Partner Relationship Specialty Start Date End Date Kate Silva MD [address] [facility] [place] [address] PCP - General Internal Medicine 10/28/22 Zuleika Avalos PA-C [address] [place] [address] Gastroenterology 08/22/22 Gopal Yanez MD [address] [place] [facility] [place] [address] Hematology/Oncology 02/07/23 Human Resources Partner Relationship Specialty Start Date End Date Kate Silva MD [address] [facility] [place] [address] PCP - General Internal Medicine 10/28/22 Zuleika Avalos PA-C [address] [place] [address] Gastroenterology 08/22/22 Gopal Yanez MD [address] [place] [facility] [place] [address] Hematology/Oncology 02/07/23 Human Resources Partner Relationship Specialty Start Date End Date Kate Silva MD [address] [facility] [place] [address] PCP - General Internal Medicine 10/28/22 Zuleika Avalos PA-C [address] [facility] [address] Gastroenterology 08/22/22 Gopal Yanez MD [address] [place] [address] Hematology/Oncology 02/07/23 Human Resources Partner Relationship Specialty Start Date End Date Antonio Smalls MD [address] [place] [address] PCP - General 02/26/06 10/08/22 Human Resources Partner Relationship Specialty Start Date End Date Kate Silva MD [address] [place] [address] PCP - General Internal Medicine 10/28/22 Zuleika Avalos PA-C [address] [place] [address] Gastroenterology 08/22/22 Gopal Yanez MD [address] [place] [address] Hematology/Oncology 02/07/23 Human Resources Partner Relationship Specialty Start Date End Date Kate Silva MD [address] [place] [address] PCP - General Internal Medicine 10/28/22 Zuleika Avalos PA-C [address] [place] [address] Gastroenterology 08/22/22 Gopal Yanez MD [address] [place] [address] Hematology/Oncology 02/07/23 Human Resources Partner Relationship Specialty Start Date End Date Kate Silva MD [address] [place] [address] PCP - General Internal Medicine 10/28/22 Zuleika Avalos PA-C [address] [place] [address] Gastroenterology 08/22/22 Gopal Yanez MD [address] [place] [address] Hematology/Oncology 02/07/23 Human Resources Partner Relationship Specialty Start Date End Date Kate Silva MD [address] [place] [address] PCP - General Internal Medicine 10/28/22 Zuleika Avalos PA-C [address] [place] [address] Gastroenterology 08/22/22 Gopal Yanez MD [address] [place] [address] Hematology/Oncology 02/07/23 Human Resources Partner Relationship Specialty Start Date End Date Kate Silva MD [address] [place] [address] PCP - General Internal Medicine 10/28/22 Zuleika Avalos PA-C [address] [place] [address] Gastroenterology 08/22/22 Gopal Yanez MD [address] [place], [place] [address] Hematology/Oncology 02/07/23 Human Resources Partner Relationship Specialty Start Date End Date Kate Silva MD [address] [place] [address] PCP - General Internal Medicine 10/28/22 Zuleika Avalos PA-C [address] [place] [address] Gastroenterology 08/22/22 Gopal Yanez MD [address] [place] [address] Hematology/Oncology 02/07/23 Human Resources Partner Relationship Specialty Start Date End Date Kate Silva MD [address] [place] [address] PCP - General Internal Medicine 10/28/22 Zuleika Avalos PA-C [address] [place] [address] Gastroenterology 08/22/22 Gopal Yanez MD [address] [place] [address] Hematology/Oncology 02/07/23 Human Resources Partner Relationship Specialty Start Date End Date Kate Silva MD [address] [place] [address] PCP - General Internal Medicine 10/28/22 Zuleika Avalos PA-C [address] [place], [place] [id number] Gastroenterology 08/22/22 Gopal Yanez MD [address] [place] [address] Hematology/Oncology 02/07/23 Human Resources Partner Relationship Specialty Start Date End Date Kate Silva MD [address] [place] [address] PCP - General Internal Medicine 10/28/22 Zuleika Avalos PA-C [address] [place], [place] [address] Gastroenterology 08/22/22 Gopal Yanez MD [address] [place] [address] Hematology/Oncology 02/07/23 Human Resources Partner Relationship Specialty Start Date End Date Kate Silva MD [address] [place] [address] PCP - General Internal Medicine 10/28/22 Zuleika Avalos PA-C [address] [facility] [address] Gastroenterology 08/22/22 Gopal Yanez MD [address] [place] [address] Hematology/Oncology 02/07/23 Human Resources Partner Relationship Specialty Start Date End Date Kate Silva MD [address] [place] [address] PCP - General Internal Medicine 10/28/22 Zuleika Avalos PA-C [address] [place] [address] Gastroenterology 08/22/22 Gopal Yanez MD [address] [place] [address] Hematology/Oncology 02/07/23 Human Resources Partner Relationship Specialty Start Date End Date Kate Silva MD [address] [place] [address] PCP - General Internal Medicine 10/28/22 Zuleika Avalos PA-C [address] [place], [place] [address] Gastroenterology 08/22/22 Gopal Yanez MD [address] [place] [address] Hematology/Oncology 02/07/23 Human Resources Partner Relationship Specialty Start Date End Date Kate Silva MD [address] [place] [address] PCP - General Internal Medicine 10/28/22 Zuleika Avalos PA-C [address] [place] [address] Gastroenterology 08/22/22 Gopal Yanez MD [address] [place] [address] Hematology/Oncology 02/07/23 Human Resources Partner Relationship Specialty Start Date End Date Kate Silva MD [address] [facility] [place] [address] PCP - General Internal Medicine 10/28/22 Zuleika Avalos PA-C [address] [place] [address] Gastroenterology 08/22/22 Gopal Yanez MD [address] [place] [address] Hematology/Oncology 02/07/23 Human Resources Partner Relationship Specialty Start Date End Date Kate Silva MD [address] [facility] [place] [address] PCP - General Internal Medicine 10/28/22 Zuleika Avalos PA-C [address] [facility] [address] Gastroenterology 08/22/22 Gopal Yanez MD [address] [facility] [address] Hematology/Oncology 02/07/23 Human Resources Partner Relationship Specialty Start Date End Date Kate Silva MD [address] [facility] [address] PCP - General Internal Medicine 10/28/22 Zuleika Avalos PA-C [address] [place] [address] Gastroenterology 08/22/22 Gopal Yanez MD [address] [place] [address] Hematology/Oncology 02/07/23 Human Resources Partner Relationship Specialty Start Date End Date Kate Silva MD [address] [place] [address] PCP - General Internal Medicine 10/28/22 Zuleika Avalos PA-C [address] [place] [address] Gastroenterology 08/22/22 Gopal Yanez MD [address] [place] [address] Hematology/Oncology 02/07/23 Human Resources Partner Relationship Specialty Start Date End Date Kate Silva MD [address] [place] [address] PCP - General Internal Medicine 10/28/22 Zuleika Avalos PA-C [address] [place] [address] Gastroenterology 08/22/22 Gopal Yanez MD [address] [place] [address] Hematology/Oncology 02/07/23 Human Resources Partner Relationship Specialty Start Date End Date Kate Silva MD [address] [place], [place] [address] PCP - General Internal Medicine 10/28/22 Zuleika Avalos PA-C [address] [place], [place] [id number] Gastroenterology 08/22/22 Gopal Yanez MD [address] [place] [address] Hematology/Oncology 02/07/23 Human Resources Partner Relationship Specialty Start Date End Date Kate Silva MD [address] [place] [address] PCP - General Internal Medicine 10/28/22 Zuleika Avalos PA-C [address] [place] [address] Gastroenterology 08/22/22 Gopal Yanez MD [address] [place] [address] Hematology/Oncology 02/07/23 Human Resources Partner Relationship Specialty Start Date End Date Kate Silva MD [address] [place] [address] PCP - General Internal Medicine 10/28/22 Zuleika Avalos PA-C [address] [facility] [place] [id number] Gastroenterology 08/22/22 Gopal Yanez MD [address] [place] [address] Hematology/Oncology 02/07/23 Human Resources Partner Relationship Specialty Start Date End Date Kate Silva MD [address] [place] [address] PCP - General Internal Medicine 10/28/22 Zuleika Avalos PA-C [address] [place], [place] [address] Gastroenterology 08/22/22 Gopal Yanez MD [address] [place] [address] Hematology/Oncology 02/07/23 Human Resources Partner Relationship Specialty Start Date End Date Kate Silva MD [address] [place] [address] PCP - General Internal Medicine 10/28/22 Zuleika Avalos PA-C [address] [place], [place] [address] Gastroenterology 08/22/22 Gopal Yanez MD [address] [facility] [place] [address] Hematology/Oncology 02/07/23 Human Resources Partner Relationship Specialty Start Date End Date Kate Silva MD [address] [place] [address] PCP - General Internal Medicine 10/28/22 Zuleika Avalos PA-C [address] [facility] [place] [place] [address] Gastroenterology 08/22/22 Gopal Yanez MD [address] [facility] [place] [address] Hematology/Oncology 02/07/23 Human Resources Partner Relationship Specialty Start Date End Date Kate Silva MD [address] [facility] [place] [address] PCP - General Internal Medicine 10/28/22 Zuleika Avalos PA-C [address] [place] [address] Gastroenterology 08/22/22 Gopal Yanez MD [address] [facility] [place] [address] Hematology/Oncology 02/07/23 Human Resources Partner Relationship Specialty Start Date End Date Kate Silva MD [address] [facility] [place] [address] PCP - General Internal Medicine 10/28/22 Zuleika Avalos PA-C [address] [place] [address] Gastroenterology 08/22/22 Gopal Yanez MD [address] [facility] [place] [address] Hematology/Oncology 02/07/23 Human Resources Partner Relationship Specialty Start Date End Date Kate Silva MD [address] [place] [address] PCP - General Internal Medicine 10/28/22 Zuleika Avalos PA-C [address] [place] [address] Gastroenterology 08/22/22 Gopal Yanez MD [address] [place] [address] Hematology/Oncology 02/07/23 Human Resources Partner Relationship Specialty Start Date End Date Kate Silva MD [address] [place] [address] PCP - General Internal Medicine 10/28/22 Zuleika Avalos PA-C [address] [place] [address] Gastroenterology 08/22/22 Gopal Yanez MD [address] [place] [address] Hematology/Oncology 02/07/23 Human Resources Partner Relationship Specialty Start Date End Date Kate Silva MD [address] [place] [address] PCP - General Internal Medicine 10/28/22 Zuleika Avalos PA-C [address] [place] [address] Gastroenterology 08/22/22 Gopal Yanez MD [address] [place] [address] Hematology/Oncology 02/07/23 Human Resources Partner Relationship Specialty Start Date End Date Kate Silva MD [address] [place] [address] PCP - General Internal Medicine 10/28/22 Zuleika Avalos PA-C [address] [place] [address] Gastroenterology 08/22/22 Gopal Yanez MD [address] [place] [address] Hematology/Oncology 02/07/23 Human Resources Partner Relationship Specialty Start Date End Date Kate Silva MD [address] [place] [address] PCP - General Internal Medicine 10/28/22 Zuleika Avalos PA-C [address] [place] [address] Gastroenterology 08/22/22 Gopal Yanez MD [address] [place] [address] Hematology/Oncology 02/07/23 Human Resources Partner Relationship Specialty Start Date End Date Antonio Smalls MD [address] [place] [address] PCP - General 02/26/06 10/08/22 Human Resources Partner Relationship Specialty Start Date End Date Antonio Smalls MD [address] [place], [place] [address] PCP - General 02/26/06 10/08/22 Human Resources Partner Relationship Specialty Start Date End Date Kate Silva MD [address] [place] [address] PCP - General Internal Medicine 10/28/22 Zuleika Avalos PA-C [address] [place] [address] Gastroenterology 08/22/22 Gopal Yanez MD [address] [place] [address] Hematology/Oncology 02/07/23 Human Resources Partner Relationship Specialty Start Date End Date Kate Silva MD [address] [place] [address] PCP - General Internal Medicine 10/28/22 Zuleika Avalos PA-C [address] [place] [address] Gastroenterology 08/22/22 Gopal Yanez MD [address] [place] [address] Hematology/Oncology 02/07/23 Human Resources Partner Relationship Specialty Start Date End Date Kate Silva MD [address] [place] [address] PCP - General Internal Medicine 10/28/22 Zuleika Avalos PA-C [address] [place] [address] Gastroenterology 08/22/22 Gopal Yanez MD [address] [place] [address] Hematology/Oncology 02/07/23 Human Resources Partner Relationship Specialty Start Date End Date Kate Silva MD [address] [place] [address] PCP - General Internal Medicine 10/28/22 Zuleika Avalos PA-C [address] [place] [address] Gastroenterology 08/22/22 Gopal Yanez MD [address] [place] [address] Hematology/Oncology 02/07/23 Human Resources Partner Relationship Specialty Start Date End Date Kate Silva MD [address] [place] [address] PCP - General Internal Medicine 10/28/22 Zuleika Avalos PA-C [address] [place] [address] Gastroenterology 08/22/22 Gopal Yanez MD [address] [place] [address] Hematology/Oncology 02/07/23 Human Resources Partner Relationship Specialty Start Date End Date Kate Silva MD [address] [place] [address] PCP - General Internal Medicine 10/28/22 Zuleika Avalos PA-C [address] [place] [address] Gastroenterology 08/22/22 Gopal Yanez MD [address] [facility] [place] [address] Hematology/Oncology 02/07/23 Human Resources Partner Relationship Specialty Start Date End Date Kate Silva MD [address] [place] [address] PCP - General Internal Medicine 10/28/22 Zuleika Avalos PA-C [address] [place], [place] [address] Gastroenterology 08/22/22 Gopal Yanez MD [address] [place] [address] Hematology/Oncology 02/07/23 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, WARP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 [address] [place] [address] Virtualization Engineer Internal Medicine 06/07/24 Sher [place], WARP SCOURING VAT TENDER.CRIBBER [address] [place] [address] Virtualization Engineer Internal Medicine 06/07/24 Human Resources Partner Relationship Specialty Start Date End Date Kate Silva MD [address] [place] [address] PCP - General Internal Medicine 10/28/22 Zuleika Avalos PA-C [address] [place], [place] [id number] Gastroenterology 08/22/22 Gopal Yanez MD [address] [place] [address] Hematology/Oncology 02/07/23 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, HARLAN.CEMENT FINISHER [address] [facility] [place] [address] Virtualization Engineer Internal Medicine 06/07/24 Sher Hollingsworth APRN.CRIBBER [address] [facility] [place] [address] Virtualization Engineer Internal Medicine 06/07/24 Human Resources Partner Relationship Specialty Start Date End Date Kate Silva MD [address] [facility] [place] [address] PCP - General Internal Medicine 10/28/22 Zuleika Avalos PA-C [address] [place] [address] Gastroenterology 08/22/22 Gopal Yanez MD [address] [facility] [place] [address] Hematology/Oncology 02/07/23 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 APRN.CEMENT FINISHER [address] [facility] [place] [address] Virtualization Engineer Internal Medicine 06/07/24 Sher [place] APRN.CRIBBER [address] [facility] [place] [address] [facility] Internal Medicine 06/07/24 Human Resources Partner Relationship Specialty Start Date End Date Kate Silva MD [address] [place] [address] PCP - General Internal Medicine 10/28/22 Zuleika Avalos PA-C [address] [place] [address] Gastroenterology 08/22/22 Gopal Yanez MD [address] [place] [address] Hematology/Oncology 02/07/23 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, WARP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 [address] [place] [address] Virtualization Engineer Internal Medicine 06/07/24 Sher Hollingsworth WARP SCOURING VAT TENDER.CRIBBER [address] [place] [address] Virtualization Engineer Internal Medicine 06/07/24 Human Resources Partner Relationship Specialty Start Date End Date Kate Silva MD [address] [place] [address] PCP - General Internal Medicine 10/28/22 Zuleika Avalos PA-C [address] [place] [address] Gastroenterology 08/22/22 Gopal Yanez MD [address], [place] [address] Hematology/Oncology 02/07/23 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, WARP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 [address] [place], [place] [id number] Virtualization Engineer Internal Medicine 06/07/24 Sher Hollingsworth, WARP SCOURING VAT TENDER.CRIBBER [address] [place] [address] [facility] Internal Medicine 06/07/24 Human Resources Partner Relationship Specialty Start Date End Date Kate Silva MD [address] [place] [address] PCP - General Internal Medicine 10/28/22 Zuleika Avalos PA-C [address] [place], [place] [id number] Gastroenterology 08/22/22 Gopal Yanez MD [address] [place] [address] Hematology/Oncology 02/07/23 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, WARP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 [address] [place] [address] Virtualization Engineer Internal Medicine 06/07/24 Sher Hollingsworth, WARP SCOURING VAT TENDER.CRIBBER [address] [place] [address] [facility] Internal Medicine 06/07/24 Human Resources Partner Relationship Specialty Start Date End Date Kate Silva MD [address] [place] [address] PCP - General Internal Medicine 10/28/22 Zuleika Avalos PA-C [address] [place], [place] [id number] Gastroenterology 08/22/22 Gopal Yanez MD [address] [place] [address] Hematology/Oncology 02/07/23 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 APRN.CEMENT FINISHER [address] [place] [address] Virtualization Engineer Internal Medicine 06/07/24 Sher Hollingsworth APRN.CRIBBER [address] [facility] [place] [address] Virtualization Engineer Internal Medicine 06/07/24 Human Resources Partner Relationship Specialty Start Date End Date Kate Silva MD [address] [place] [address] PCP - General Internal Medicine 10/28/22 Zuleika Avalos PA-C [address] [place] [address] Gastroenterology 08/22/22 Gopal Yanez MD [address] [place] [address] Hematology/Oncology 02/07/23 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 APRN.CEMENT FINISHER [address] [place] [address] Virtualization Engineer Internal Medicine 06/07/24 Sher Hollingsworth WARP SCOURING VAT TENDER.CRIBBER [address] [facility] [address] Virtualization Engineer Internal Medicine 06/07/24 Human Resources Partner Relationship Specialty Start Date End Date Kate Silva MD [address] [facility] [address] PCP - General Internal Medicine 10/28/22 Zuleika Avalos PA-C [address] [facility] [place] [address] Gastroenterology 08/22/22 Gopal Yanez MD [address] [place] [address] Hematology/Oncology 02/07/23 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 WARP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 [address] [facility] [place] [address] Virtualization Engineer Internal Medicine 06/07/24 Sher Hollingsworth APRN.CRIBBER [address] [facility] [address] Virtualization Engineer Internal Medicine 06/07/24 Human Resources Partner Relationship Specialty Start Date End Date Kate Silva MD [address] [facility] [address] PCP - General Internal Medicine 10/28/22 Zuleika Avalos PA-C [address] [place] [address] Gastroenterology 08/22/22 Gopal Yanez MD [address] [place] [address] Hematology/Oncology 02/07/23 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, HARLAN.CEMENT FINISHER [address] [facility] [address] Virtualization Engineer Internal Medicine 06/07/24 Sher Hollingsworth APRN.CRIBBER [address] [place] [address] Virtualization Engineer Internal Medicine 09/21/24 Team Status: Active Member Role Status Dates Dr. Kate Silva MD Primary Care Provider Active Team Status: Inactive Member Role Status Dates Dr. Kate Silva MD Primary Care Provider Active Start: September 29, 2024 End: September 29, 2024 Dr. Shiv Roper DO Emergency Provider Active Start: September 29, 2024 End: September 29, 2024 Human Resources Partner Relationship Specialty Start Date End Date Kate Silva MD [address] [place] [address] PCP - General Internal Medicine 10/28/22 Zuleika Avalos PA-C [address] [place] [address] Gastroenterology 08/22/22 Gopal Yanez MD [address] [place] [address] Hematology/Oncology 02/07/23 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 APRN.CEMENT FINISHER [address] [facility] [place] [address] [facility] Internal Medicine 06/07/24 Sher Hollingsworth WARP SCOURING VAT TENDER.CRIBBER [address] [place] [address] [facility] Internal Medicine 09/21/24 Human Resources Partner Relationship Specialty Start Date End Date Kate Silva MD [address] [facility] [address] PCP - General Internal Medicine 10/28/22 Zuleika Avalos PA-C [address] [facility] [place] [address] Gastroenterology 08/22/22 Gopal Yanez MD [address] [facility], [place] [address] Hematology/Oncology 02/07/23 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, WARP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 [address] [facility] [place] [address]31 Virtualization Engineer Internal Medicine 06/07/24 Sher Hollingsworth, WARP SCOURING VAT TENDER.CRIBBER [address] [facility] [place] [address] Virtualization Engineer Internal Medicine 09/21/24 Team Status: Inactive Member [...] October 06, 2024 End: October 06, 2024 Human Resources Partner Relationship Specialty Start Date End Date Kate Silva MD [address] [facility] [place] [address] PCP - General Internal Medicine 10/28/22 Zuleika Avalos PA-C [address] [facility] [address] Gastroenterology 08/22/22 Gopal Yanez MD [address] [place] [address] Hematology/Oncology 02/07/23 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 WARP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 [address] [place] [address] Virtualization Engineer Internal Medicine 06/07/24 Sher Hollingsworth APRN.CRIBBER [address] [facility] [place] [address] Virtualization Engineer Internal Medicine 09/21/24 Human Resources Partner Relationship Specialty Start Date End Date Kate Silva MD [address] [place] [address] PCP - General Internal Medicine 10/28/22 Zuleika Avalos PA-C [address] [place] [address] Gastroenterology 08/22/22 Gopal Yanez MD [address] [place] [address] Hematology/Oncology 02/07/23 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 WARP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 [address] [place] [address] Virtualization Engineer Internal Medicine 06/07/24 Sher Hollingsworth APRN.CRIBBER [address] [facility] [place] [address] Virtualization Engineer Internal Medicine 09/21/24 Human Resources Partner Relationship Specialty Start Date End Date Kate Silva MD [address] [place] [address] PCP - General Internal Medicine 10/28/22 Zuleika Avalos PA-C [address] [facility] [place] [address] Gastroenterology 08/22/22 Gopal Yanez MD [address] [place] [address] Hematology/Oncology 02/07/23 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, WARP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 [address] [place] [address] Virtualization Engineer Internal Medicine 06/07/24 Sher Hollingsworth WARP SCOURING VAT TENDER.CRIBBER [address] [place] [address] Virtualization Engineer Internal Medicine 09/21/24 Human Resources Partner Relationship Specialty Start Date End Date Kate Silva MD [address] [address] PCP - General Internal Medicine 10/28/22 Zuleika Avalos PA-C [address] [facility] [place] [address] Gastroenterology 08/22/22 Gopal Yanez MD [address] [place] [address] Hematology/Oncology 02/07/23 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, WARP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 [address] [place] [address] Virtualization Engineer Internal Medicine 06/07/24 Sher Hollingsworth, WARP SCOURING VAT TENDER.CRIBBER [address] [place] [address] [facility] Internal Medicine 09/21/24 Human Resources Partner Relationship Specialty Start Date End Date Kate Silva MD [address] [place] [address] PCP - General Internal Medicine 10/28/22 Zuleika Avalos PA-C [address] [facility] [address] Gastroenterology 08/22/22 Gopal Yanez MD [address] [place] [address] Hematology/Oncology 02/07/23 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 APRN.CEMENT FINISHER [address] [place] [address] [facility] Internal Medicine 06/07/24 Sher Hollingsworth WARP SCOURING VAT TENDER.CRIBBER [address] [place] [address] [facility] Internal Medicine 09/21/24 Human Resources Partner Relationship Specialty Start Date End Date Kate Silva MD [address] [place] [address] PCP - General Internal Medicine 10/28/22 Zuleika Avalos PA-C [address] [facility] [place] [address] Gastroenterology 08/22/22 Gopal Yanez MD [address] [place] [address] Hematology/Oncology 02/07/23 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, WARP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 [address] [place] [address] Virtualization Engineer Internal Medicine 06/07/24 Sher Hollingsworth, WARP SCOURING VAT TENDER.CRIBBER [address] [facility] [place] [id number] Virtualization Engineer Internal Medicine 09/21/24 Team Status: Inactive Member [...] October 25, 2024 End: October 25, 2024 Human Resources Partner Relationship Specialty Start Date End Date Kate Silva MD [address] [place] [address] PCP - General Internal Medicine 10/28/22 Zuleika Avalos PA-C [address] [facility] [address] Gastroenterology 08/22/22 Gopal Yanez MD [address] [place] [address] Hematology/Oncology 02/07/23 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, WARP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 [address] [place] [address] Virtualization Engineer Internal Medicine 06/07/24 Sher Hollingsworth WARP SCOURING VAT TENDER.CRIBBER [address] [facility] [place] [address] Virtualization Engineer Internal Medicine 09/21/24 Human Resources Partner Relationship Specialty Start Date End Date Kate Silva MD [address] [place] [address] PCP - General Internal Medicine 10/28/22 Zuleika Avalos PA-C [address] [place] [address] Gastroenterology 08/22/22 Gopal Yanez MD [address] [place] [facility] [address] Hematology/Oncology 02/07/23 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, WARP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 [address] [place] [address] [facility] Internal Medicine 06/07/24 Sher Hollingsworth WARP SCOURING VAT TENDER.CRIBBER [address] [place] [address] [facility] Internal Medicine 09/21/24 Human Resources Partner Relationship Specialty Start Date End Date Kate Silva MD [address] [facility] [place] [address] PCP - General Internal Medicine 10/28/22 Zuleika Avalos PA-C [address] [place] [address] Gastroenterology 08/22/22 Gopal Yanez MD [address] [place] [address] Hematology/Oncology 02/07/23 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 APRN.CEMENT FINISHER [address] [place] [address] Virtualization Engineer Internal Medicine 06/07/24 Sher Hollingsworth APRN.CRIBBER [address] [place] [address] Virtualization Engineer Internal Medicine 09/21/24 Human Resources Partner Relationship Specialty Start Date End Date Kate Silva MD [address] [place] [address] PCP - General Internal Medicine 10/28/22 Zuleika Avalos PA-C [address] [place] [address] Gastroenterology 08/22/22 Gopal Yanez MD [address] [place] [address] Hematology/Oncology 02/07/23 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 APRN.CEMENT FINISHER [address] [place] [address] Virtualization Engineer Internal Medicine 06/07/24 Sher Hollingsworth APRN.CRIBBER [address] [facility] [address] Virtualization Engineer Internal Medicine 09/21/24 Human Resources Partner Relationship Specialty Start Date End Date Kate Silva MD [address] [place] [address] PCP - General Internal Medicine 10/28/22 Zuleika Avalos PA-C [address] [place] [address] Gastroenterology 08/22/22 Gopal Yanez MD [address] [place] [address] Hematology/Oncology 02/07/23 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 APRN.CEMENT FINISHER [address] [facility] [address] Virtualization Engineer Internal Medicine 06/07/24 Sher Hollingsworth APRN.CRIBBER [address] [facility] [place] [address] Virtualization Engineer Internal Medicine 09/21/24 Human Resources Partner Relationship Specialty Start Date End Date Kate Silva MD [address] [place] [address] PCP - General Internal Medicine 10/28/22 Zuleika Avalos PA-C [address] [place] [address] Gastroenterology 08/22/22 Gopal Yanez MD [address] [place] [address] Hematology/Oncology 02/07/23 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, WARP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 [address] [place] [address] Virtualization Engineer Internal Medicine 06/07/24 Sher Hollingsworth, WARP SCOURING VAT TENDER.CRIBBER [address] [place] [address] Virtualization Engineer Internal Medicine 09/21/24 Human Resources Partner Relationship Specialty Start Date End Date Kate Silva MD [address] [place] [address] PCP - General Internal Medicine 10/28/22 Zuleika Avalos PA-C [address] [place] [address] Gastroenterology 08/22/22 Gopal Yanez MD [address] [place] [address] Hematology/Oncology 02/07/23 Sher Hollingsworth, WARP SCOURING VAT TENDER.CRIBBER [address] [place] [address] Virtualization Engineer Internal Medicine 09/21/24 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, WARP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 [address] [place] [address] Virtualization Engineer Internal Medicine 11/17/24 Human Resources Partner Relationship Specialty Start Date End Date Kate Silva MD [address] [place] [address] PCP - General Internal Medicine 10/28/22 Zuleika Avalos PA-C [address] [facility] [place] [address] Gastroenterology 08/22/22 Gopal Yanez MD [address] [place] [address] Hematology/Oncology 02/07/23 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 APRN.CEMENT FINISHER [address] [facility] [address] Virtualization Engineer Internal Medicine 06/07/24 Sher Hollingsworth APRN.CRIBBER [address] [facility] [place] [address] Virtualization Engineer Internal Medicine 09/21/24 Team Status: Inactive Member Role Status Dates Dr. Kate Silva MD Primary Care Provider Active Start: October 25, 2024 End: October 25, 2024 Pérez Ren MD Attending Provider Active Star t: October 25, 2024 End: October 25, 2024 Pérez Ren MD Emergency Provider Active Star t: October 25, 2024 End: October 25, 2024 Team Status: Inactive Member Role Status Dates Dr. Kate Silva MD Primary Care Provider Active Start: October 28, 2024 End: October 29, 2024 Dr. Julianna Hughes DO Attending Provider Active S tart: October 28, 2024 End: October 29, 2024 Dr. Julianna Hughes DO Referring Provider Active S tart: October 28, 2024 End: October 29, 2024 Dr. Julianna Hughes DO Emergency Provider Active S tart: October 28, 2024 End: October 29, 2024 Team Status: Inactive Member Role Status Dates Dr. Kate Silva MD Primary Care Provider Active Start: December 02, 2024 End: December 02, 2024 Dr. Mike Feldman DO Emergency Provider Active Start : December 02, 2024 End: December 02, 2024 Team Status: Active Member Role Status Dates Dr. Kate Silva MD Primary Care Provider Active Start: December 02, 2024 Dr. Yuly Aquino MD Attending Provider Activ e Start: December 02, 2024 Dr. Yuly Aquino MD Referring Provider Activ e Start: December 02, 2024 Team Status: Inactive Member Role Status Dates Dr. Kate Silva MD Primary Care Provider Active Start: December 02, 2024 End: December 02, 2024 Dr. Yuly Aquino MD Attending Provider Activ e Start: December 02, 2024 End: December 02, 2024 Dr. Yuly Aquino MD Referring Provider Activ e Start: December 02, 2024 End: December 02, 2024 Human Resources Partner Relationship Specialty Start Date End Date Kate Silva MD [address] [place] [address] PCP - General Internal Medicine 10/28/22 Zuleika Avalos PA-C [address] [place] [address] Gastroenterology 08/22/22 Gopal Yanez MD [address] [place] [address] Hematology/Oncology 02/07/23 Sher Hollingsworth, WARP SCOURING VAT TENDER.CRIBBER [address] [place] [address] Virtualization Engineer Internal Medicine 09/21/24 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, WARP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 [address] [place] [address] Virtualization Engineer Internal Medicine 11/17/24 Human Resources Partner Relationship Specialty Start Date End Date Kate Silva MD [address] [place] [address] PCP - General Internal Medicine 10/28/22 Zuleika Avalos PA-C [address] [facility] [place] [address] Gastroenterology 08/22/22 Gopal Yanez MD [address] [place] [address] Hematology/Oncology 02/07/23 Sher Hollingsworth APRN.CRIBBER [address] [facility] [address] Virtualization Engineer Internal Medicine 09/21/24 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 APRN.CEMENT FINISHER [address] [facility] [address] Virtualization Engineer Internal Medicine 11/17/24 Human Resources Partner Relationship Specialty Start Date End Date Kate Silva MD [address] [place] [address] PCP - General Internal Medicine 10/28/22 Zuleika Avalos PA-C [address] [facility] [address] Gastroenterology 08/22/22 Gopal Yanez MD [address] [place] [address] Hematology/Oncology 02/07/23 Sher Hollingsworth APRN.CRIBBER [address] [facility] [address] Virtualization Engineer Internal Medicine 09/21/24 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 APRN.CEMENT FINISHER [address] [place] [address] Virtualization Engineer Internal Medicine 11/17/24 Human Resources Partner Relationship Specialty Start Date End Date Kate Silva MD [address] [place] [address] PCP - General Internal Medicine 10/28/22 Zuleika Avalos PA-C [address] [place] [address] Gastroenterology 08/22/22 Gopal Yanez MD [address] [place] [address] Hematology/Oncology 02/07/23 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, WARP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 [address] [place] [address] Virtualization Engineer Internal Medicine 06/07/24 11/16/24 Sher Hollingsworth, WARP SCOURING VAT TENDER.CRIBBER [address] [place] [address] Virtualization Engineer Internal Medicine 09/21/24 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, WARP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 [address] [place] [address] Virtualization Engineer Internal Medicine 11/17/24 Human Resources Partner Relationship Specialty Start Date End Date Kate Silva MD [address] [place] [address] PCP - General Internal Medicine 10/28/22 Zuleika Avalos PA-C [address] [place] [address] Gastroenterology 08/22/22 Gopal Yanez MD [address] [place] [address] Hematology/Oncology 02/07/23 Sher Hollingsworth WARP SCOURING VAT TENDER.CRIBBER [address] [facility] [place] [address] Virtualization Engineer Internal Medicine 09/21/24 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 WARP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 [address] [place] [address] Virtualization Engineer Internal Medicine 11/17/24 Human Resources Partner Relationship Specialty Start Date End Date Kate Silva MD [address] [facility] [place] [address] PCP - General Internal Medicine 10/28/22 Zuleika Avalos PA-C [address] [facility] [address] Gastroenterology 08/22/22 Gopal Yanez MD [address] [place] [address] Hematology/Oncology 02/07/23 Sher Hollingsworth WARP SCOURING VAT TENDER.CRIBBER [address] [facility] [place] [address] Virtualization Engineer Internal Medicine 09/21/24 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, WARP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 [address] [facility] [address] [facility] Internal Medicine 11/17/24 Human Resources Partner Relationship Specialty Start Date End Date Kate Silva MD [address] [place] [address] PCP - General Internal Medicine 10/28/22 Zuleika Avalos PA-C [address] [place] [address] Gastroenterology 08/22/22 Gopal Yanez MD [address] [place] [address] Hematology/Oncology 02/07/23 Sher Hollingsworth, WARP SCOURING VAT TENDER.CRIBBER [address] [place] [address] Virtualization Engineer Internal Medicine 09/21/24 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, WARP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 [address] [place] [address] Virtualization Engineer Internal Medicine 11/17/24 Human Resources Partner Relationship Specialty Start Date End Date Kate Silva MD [address] [place] [address] PCP - General Internal Medicine 10/28/22 Zuleika Avalos PA-C [address] [address] Gastroenterology 08/22/22 Gopal Yanez MD [address] [place] [address] Hematology/Oncology 02/07/23 Sher Hollingsworth, WARP SCOURING VAT TENDER.CRIBBER [address] [place] [address] Virtualization Engineer Internal Medicine 09/21/24 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, HARLAN.CEMENT FINISHER [address] [place] [address] [facility] Internal Medicine 11/17/24 Human Resources Partner Relationship Specialty Start Date End Date Kate Silva MD [address] [place] [address] PCP - General Internal Medicine 10/28/22 Zuleika Avalos PA-C [address] [place] [address] Gastroenterology 08/22/22 Gopal Yanez MD [address] [place] [address] Hematology/Oncology 02/07/23 Sher Hollingsworth APRN.CRIBBER [address] [place] [address] [facility] Internal Medicine 09/21/24 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, WARP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 [address] [place] [address] [facility] Internal Medicine 11/17/24 Goals (unrecognized section and content) Goals may [...] 0303, Intraprocedure 1037 (Given - Provid er: Keysha Dawn RN) NaCl 0.9% iv infusion INTRAVENOUS, X (OR/PROCEDURE) CONTINUOUS, Starting on Fri07/05/22 at 1023, Until 07/06/22 at 0303, Intraprocedure 1023 (New Bag/Syring e/Bottle - Provider: Keysha Dawn RN)1105 (Infusion Complete - Provider: Keysha Dwan RN) sodium chloride 0.9 % (flush) (BD POSIFLUSH) INTRAVENOUS, X (OR/PROCEDURE) PRN, Starting on 07/05/22 at 1023, Until 07/06/22 at 0303, Intraprocedure [...] BE BASED ON THE PRIMARY CLINICAL RECORDS. [employer] provides no warranty or guarantee of the accuracy or completeness of information in this document.
--- NOTE | 2025-05-20 23:38 | RAD_ITS ---
PROCEDURE: FOOT MIN 3 VIEWS 05/20/2025 REASON FOR EXAM: PAIN TECHNIQUE: Procedure Code: RADFO Modality: DX Procedure: FOOT MIN 3 VIEWS Laterality: FINDINGS: No acute fracture or dislocation. A small posterior calcaneal enthesophyte. Otherwise no significant bone or joint abnormality. No focal soft tissue swelling. RAD/Foot min 3 Views IMPRESSION: As above. Reading Location: [id number]
--- NOTE | 2025-05-21 00:22 | EX.ED.DYSGE1 ---
HPI History of Present Illness Chief Complaint: Lower Extremity Injury Informant: patient and spouse/S.O. Narrative Narrative: Patient is a 24-year-old female with past medical history of ADHD. She states roughly 5 to 6 hours ago she had her right second toe bent backwards. She states when this occurred she heard a pop. She states that she took [id number] medication and spent time off her foot but despite doing this the pain has persisted. Therefore with concern for potential toe fracture she presents for evaluation [facility] Medical History Depersonalization disorder Fatty liver Smoker Marfan syndrome ADHD (attention deficit hyperactivity disorder) Retinal detachment, old, total/subtotal Femur fracture, right Home Medications ?Medication ?Instructions ?Recorded ?Last Taken ?Type dextroamphetamine-amphetamine 30 30 mg PO DAILY 04/03/15 Unknown History mg tablet (Adderall) methylphenidate HCl 20 mg tablet 20 mg PO DAILY 04/03/15 Unknown History (Ritalin) medroxyprogesterone 10 mg tablet 10 mg PO DAILY 12/02/23 11/30/23 History vit no.95-ferrous 1 tab PO DAILY 12/02/23 Unknown History fumarate 28 mg-folic acid 800 mcg tablet () dextroamphetamine-amphetamine ER 1 cap PO 10/06/24 Unknown History 30 mg 24hr capsule,extend release dulaglutide 1.5 mg/0.5 mL 1.5 mg subcut QWEEK 10/06/24 Unknown History subcutaneous pen injector (Trulicity) norethindrone (contraceptive) 0.35 0.35 mg PO DAILY 10/06/24 Unknown History mg tablet (Deblitane) lorazepam 1 mg tablet (Ativan) 1 mg PO TID PRN anxiety #10 tabs 10/29/24 Unknown Rx Allergy/AdvReac Type Severity Reaction Status Date / Time No Known Allergies Allergy Verified 05/20/25 22:35 Surgical History History of liver biopsy Social History Smoking Status: Current every day smoker tobacco type: e-cigarettes ROS ROS ED Constitutional Constitutional ED: Denies chills or fever(s) Cardiovascular Cardiovascular: Denies chest pain Respiratory/Chest Respiratory/Chest: Denies cough or dyspnea Gastrointestinal Gastrointestinal: Denies abdominal pain, diarrhea, nausea or vomiting Musculoskeletal Musculoskeletal: Reports other Details: Positive right foot/toe pain Integumentary Denies Abrasions or rash Neurologic Neurologic: Denies headache(s) EXAM Physical Exam Const Vital Signs: 05/20/25 22:35 05/21/25 00:37 Temperature 97.2 F L 97.8 F Temperature Source Temporal Pulse Rate 105 H 98 Respiratory Rate 18 16 Blood Pressure 136/62 H 128/68 H Blood Pressure Mean 86 88 Pulse Ox 98 99 Oxygen Delivery Method Room Air Positive well nourished and well developed General Appearance ED: well developed HEENT HEENT Narrative: Normocephalic atraumatic Eyes PERRL and EOMs intact bilaterally General Eye ED: Negative for scleral icterus Neck supple Resp normal respiratory effort and clear to auscultation bilaterally Cardio regular rate and regular rhythm Extremity Extremity Narrative: Right lower extremity is neurovascularly intact. Patient has mild soft tissue swelling and faint ecchymosis to the dorsal aspect of the second proximal phalanx/metatarsal. There is pain with palpation at this site. No obvious bony deformity or joint effusion. No ligamentous or tendon laxity noted. No subungual hematoma. Remainder of the exam is normal Neuro oriented x3, CN's II-XII intact bilaterally and no sensory deficits noted Sensorium / Orientation: alert Motor Exam: strength 5/5 throughout Psych mental status grossly normal Skin no rashes or lesions noted Skin Narrative: Mild soft tissue swelling with faint ecchymosis to the dorsal aspect of the right second proximal phalanx/metatarsal as documented above MDM MDM MDM Narrative Medical decision making narrative: Patient arrived to the ER with stable vitals. She reported a hyperextension injury to the right second toe. With her report of a pop there is concern for fracture versus dislocation versus ligamentous or tendon injury. By physical exam there is no obvious findings of ligamentous or tendon injury. X-ray was obtained to assess for fracture versus dislocation. X-ray revealed no acute bony/traumatic finding. Therefore this indicated a toe sprain secondary to hyperextension but without ligamentous or tendon tear or fracture/dislocation there is no need for intervention and she is otherwise safe for discharge. History & Record Review Discussion w/independent historian: Patient and Significant other Radiography Diagnostic Testing: Clinical Impression(s) from Imaging Studies Foot X-Ray 05/20/25 23:38 IMPRESSION: As above. Reading Location: [facility] Right foot x-ray as interpreted by the emergency medicine physician reveals no acute fracture or dislocation or joint effusion or retained foreign body Discharge Plan Triage Chief Complaint: Lower Extremity Injury ED Provider: Wei Angulo Dx/Rx/DC Orders Clinical Impression: Pain in right foot, Sprain of toe, second, right, ADHD Instructions: ED Toe Sprain Prescriptions: No Action methylphenidate HCl [Ritalin] 20 MG tablet 20 mg PO DAILY Patient Comments: PT STATES SHE DOES NOT ALWAYS TAKE THIS DAILY dextroamphetamine-amphetamine [Adderall] 30 MG tablet 30 mg PO DAILY Patient Comments: PT STATES SHE DOES NOT ALWAYS TAKE THIS DAILY dextroamphetamine-amphetamine 30 mg capsule,extended release 24hr 1 cap PO norethindrone (contraceptive) [Deblitane] 0.35 mg tablet 0.35 mg PO DAILY Trulicity 1.5 mg/0.5 mL pen injector 1.5 mg subcut QWEEK lorazepam [Ativan] 1 mg tablet 1 mg PO TID PRN (Reason: anxiety) Qty: 10 0RF medroxyprogesterone 10 mg tablet 10 mg PO DAILY PNV no.95-ferrous fumarate-FA [] 28 mg iron- 800 mcg tablet 1 tab PO DAILY Primary Care Provider: Marlena Elaine Referrals: Marlena Elaine MD [Primary Care Provider, Internal Medicine] Activity Restrictions/Additional Instructions: Your x-ray revealed no acute fracture or dislocation. Your history and exam within normal x-ray indicates you have a hyperextension sprain to your toe. This should resolve over the next 1 to 2 weeks. Continue with Tylenol and or Motrin as well as ice for pain control. Return to the ER should you have any further concerns Print Language: Yi Disposition Disposition: Home, Self Care Discharge Date/Time: 05/21/25 00:37
[2025-05-21 00:37] VITALS: BP 128/68; PULSE 98; RESP 16; TEMP 36.6; O2SAT 99
== END 2025-05-21 00:37 | disposition home or self-care (01) ==
PROVIDERS: Emergency Provider Emergency Medicine; PCP Internal Medicine; Visit Provider Emergency Medicine
DX: S93.504A Unspecified sprain of right lesser toe(s), initial encounter (principal); F90.9 Attention-deficit hyperactivity disorder, unspecified type; X50.9XXA Other and unspecified overexertion or strenuous movements or postures, initial encounter; Z79.899 Other long term (current) drug therapy; F17.290 Nicotine dependence, other tobacco product, uncomplicated
CPT/HCPCS: 73630; 99282

== ENCOUNTER → 2025-06-21 | Outpatient (CLI) | payer MEDICAID, SELFPAY ==
[2025-06-21 16:45] LABS: Internal QC Validated? YES +Cl - CLEAR BKGD; Pregnancy, Serum, hCG Quali. NEGATIVE Negative
== END | disposition home or self-care (01) ==
LOC: VSLAB 11:57
PROVIDERS: PCP Internal Medicine; Referring Provider Counselor Mental Health; Visit Provider Counselor Mental Health
DX: F43.12 Post-traumatic stress disorder, chronic (principal); F33.1 Major depressive disorder, recurrent, moderate
CPT/HCPCS: 36415; 84703

== ENCOUNTER 2025-06-27 18:09 | Emergency (ER) | payer MEDICAID, SELFPAY ==
[2025-06-27 18:11] VITALS: BP 131/77; PULSE 92; RESP 16; TEMP 36.9; O2SAT 100; BMI 39.7
[2025-06-27 20:10] VITALS: BP 129/60; PULSE 93; RESP 16; O2SAT 98
--- NOTE | 2025-06-27 20:48 | EX.ED.DYSGE1 ---
HPI History of Present Illness Chief Complaint: Hyperglycemia [facility] Medical History Depersonalization disorder Fatty liver Smoker Marfan syndrome ADHD (attention deficit hyperactivity disorder) Retinal detachment, old, total/subtotal Femur fracture, right Home Medications ?Medication ?Instructions ?Recorded ?Last Taken ?Type dextroamphetamine-amphetamine 30 30 mg PO DAILY 04/03/15 Unknown History mg tablet (Adderall) methylphenidate HCl 20 mg tablet 20 mg PO DAILY 04/03/15 Unknown History (Ritalin) medroxyprogesterone 10 mg tablet 10 mg PO DAILY 12/02/23 11/30/23 History vit no.95-ferrous 1 tab PO DAILY 12/02/23 Unknown History fumarate 28 mg-folic acid 800 mcg tablet () dextroamphetamine-amphetamine ER 1 cap PO 10/06/24 Unknown History 30 mg 24hr capsule,extend release dulaglutide 1.5 mg/0.5 mL 1.5 mg subcut QWEEK 10/06/24 Unknown History subcutaneous pen injector (Trulicity) norethindrone (contraceptive) 0.35 0.35 mg PO DAILY 10/06/24 Unknown History mg tablet (Deblitane) lorazepam 1 mg tablet (Ativan) 1 mg PO TID PRN anxiety #10 tabs 10/29/24 Unknown Rx Allergy/AdvReac Type Severity Reaction Status Date / Time No Known Allergies Allergy Verified 06/27/25 18:14 Surgical History History of liver biopsy Social History Smoking Status: Current every day smoker tobacco type: e-cigarettes EXAM Physical Exam Const Vital Signs: 06/27/25 18:11 06/27/25 20:10 06/27/25 20:23 Temperature 98.4 F Temperature Source Oral Pulse Rate 92 93 Respiratory Rate 16 16 Respiratory Effort Normal Respiratory Pattern Normal Blood Pressure 131/77 H 129/60 H Blood Pressure Mean 95 83 Pulse Ox 100 98 Oxygen Delivery Method Room Air Room Air MDM MDM MDM Narrative Medical decision making narrative: HISTORY OF PRESENT ILLNESS: Chief complaint: Elevated blood sugar, dental infection 24-year-old female history of type 2 diabetes presents with concern for dental infection and unstable blood sugars. She states she missed 2 dose of Trulicity recently. She notes her blood sugars have been trending upward. She drank 2 bottles of water and her blood sugar trended downward. She is an 85-year-old and her blood sugar also went back up. REVIEW OF SYSTEMS: Pertinent positives: Hyperglycemia, hypoglycemia, left-sided dental pain Pertinent negatives: Fever, chills, abdominal pain, nausea vomiting PHYSICAL EXAM: Nursing triage notes reviewed, Vital signs reviewed Constitutional: please see mdm HENT: MMM Eyes: Pupils equal round and reactive to light, Extraocular muscles intact Neck: No stridor, no JVD, full neck ROM Lungs: Clear to auscultation, No wheezing or rales. No increased work of breathing, no conversational dyspnea, no accessory muscle use, no nasal flaring. No respiratory distress noted Heart: Regular rate and rhythm, No murmurs, No rubs and No gallops, 2+ distal pulses (radial, femoral, posterior tibial) in all extremities Abdomen: Soft, there is no tenderness, rigidity, rebound or guarding, no obvious peritoneal signs, no palpable pulsatile abdominal masses, no auscultated abdominal bruit : No CVAT Extremities: No edema Neuro: No new focal neurological deficits, cranial nerves II through XII intact, 5/5 strength in all present extremities. Intact sensation to light touch in all present extremities, 2+ reflexes bilateral patella tendons. Skin: No rash or lesions noted MEDICAL DECISION MAKING: Chief Complaint: please see HPI Factors affecting care: ADHD, Marfan syndrome [facility] Narrative: Patient was initially hemodynamically stable, afebrile and nontoxic-appearing. Exam with dental caries. Otherwise patient appeared nontoxic without vomiting was not pale or quick or sweaty. Was not tachypneic. No sign of Kussmaul respirations. The patient's history and physical exam were not consistent with DKA. I did offer laboratory evaluation to prove she is not in DKA given report of hyperglycemia but patient refused labs at this time. Her dental exam did not show dental abscess, no sign of Nazario angina, RPA or SHEET WRITER. Will give prophylactic antibiotics and dental resources. Patient is appropriate for discharge home. Gave a dose of Augmentin here. Wrote Augmentin for 7 days. Strict return precautions were discussed. Low-carb diet recommended. The patient and/or family, caregivers express understanding. The patient and/or family, caregivers agrees with the plan. Shared decision making: I will have a discussion with the patient and or visitors regarding risk/benefits of further testing or admission. They will be made aware of of the risk/benefits inherent in this decision they will be given the opportunity to voice understanding. Total critical care time today provided was at least 0 minutes. This excludes separately billable procedures. Critical care time (if documented) is secondary to the patient having high probability of clinically significant/life threatening deterioration in the patient's condition which required my urgent intervention. Impression: 1. Dental caries Dispo: Discharge home This note was generated with [employer] dictation software. It may contain incorrect words, spelling, and punctuation that were not noted in review of the chart prior to signing. Lab Data Labs: Laboratory Results - last 24 hr 06/27/25 20:19 POC Glucose 90 Discharge Plan Triage Chief Complaint: Hyperglycemia ED Provider: Shiv Roper Dx/Rx/DC Orders Prescriptions: No Action methylphenidate HCl [Ritalin] 20 MG tablet 20 mg PO DAILY Patient Comments: PT STATES SHE DOES NOT ALWAYS TAKE THIS DAILY dextroamphetamine-amphetamine [Adderall] 30 MG tablet 30 mg PO DAILY Patient Comments: PT STATES SHE DOES NOT ALWAYS TAKE THIS DAILY dextroamphetamine-amphetamine 30 mg capsule,extended release 24hr 1 cap PO norethindrone (contraceptive) [Deblitane] 0.35 mg tablet 0.35 mg PO DAILY Trulicity 1.5 mg/0.5 mL pen injector 1.5 mg subcut QWEEK lorazepam [Ativan] 1 mg tablet 1 mg PO TID PRN (Reason: anxiety) Qty: 10 0RF medroxyprogesterone 10 mg tablet 10 mg PO DAILY PNV no.95-ferrous fumarate-FA [] 28 mg iron- 800 mcg tablet 1 tab PO DAILY Primary Care Provider: Marlena Elaine Referrals: Marlena Elaine MD [Primary Care Provider, Internal Medicine] Print Language: Pakistani
--- OUTSIDE RECORDS SUMMARY | 2025-06-27 21:17 | XMS RPT_ITS | CCD ---
Author Organization [facility] CliniSyor Care Team Providers Care Sofa Inspector Name Role Phone JESSICA NOGUERA Unavailable Unavailable [...] MEDRANO, Gopal Unavailable Zuleika Avalos PA-C Unavailable [phone] Antonio Smalls MD Primary Care Provider Kate Silva MD Primary Care Provider RASTA DUMONT Attending UnavailRASTA Caldwell Admitting Unavailab KATE Shah Primary Care Unavailable Antonio Smalls MD Primary Care Provider Alfonso 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 [place] [place], Demi Unavailable Darrick BELL MAKER.JAMB CUTTER, Sher Unavailable Darrick BELL MAKER.JAMB CUTTER, Sher Unavailable Darrick BELL MAKER.JAMB CUTTER, Sher Unavailable Shira MEDRANO, Dr. Kate Chavez Primary Care Provider Jacquelin GREGORY, Dr. Chaney Emergency Provider Jacquelin GREGORY, Dr. Chaney Attending Provider Francia GREGORY, Dr. Mckeon Emergency Provider DR KATE SILVA MD Primary Care Unavailable [facility] GISELLE GREG[facility] Attending Unavailable Francia GREGORY, Dr. Mckeon Attending Provider Pérez Ren MD Emergency Provider Alfonso 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 [place] [place], Demi Unavailable Pérez Ren MD Attending Provider Ungjasmina GREGORY, Dr. Levine Attending Provider Ellen GREGORY, Dr. Levine Referring Provider Ellen GREGORY, Dr. Levine Emergency Provider Miles MEDRANO, Dr. Emery Attending Provider Miles MEDRANO, Dr. Emery Referring Provider [place] Park 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 [place] [place], Demi Unavailable Mike Feldman Attending Unavailable [place], [...] Drug Class(es) Dates Sig (Normalized) Sig (Original) [id number] 200 actuat albuterol 0.09 mg/actuat metered dose [...] Obesity, Class III, BMI 40-49.9 (morbid obesity) ([facility]) Inject 0.75 mg subcutaneously one time a [...] on above: Take 1 capsule by [facility] twice daily with meals for 7 days. [...] on above: Take 1 capsule by [facility] once daily. ondansetron 4 mg disintegrating oral [...] Comment on above: Take 1 tablet by [facility] once daily. ciprofloxacin 3 mg/ml / dexamethasone [...] Comment on above: Take 1 tablet by [facility] twice daily for 7 days. DULoxetine 20 [...] on above: Take 1 capsule by [facility] one time a week. fluconazole 150 mg [...] Start: 05-10-2024 take 2 tablets by [facility] every twelve hours ibrexafungerp (BREXAFEMME) 150 mg [...] tab daily for 3 days with food. Ahdvaoqt-Rs-Dei-Fe-FA tab (6 sources) Start: 11-17-2023 End: 12-12-2023 take 1 tablet by mouth once daily Osmaipos-Ss-Wje-Fe-FA tab Take 1 tablet by mouth once daily. 90 tablet 3 11/17/2023 12/12/2023 Discontinued Start: 11-17-2023 End: 11-16-2024 take 1 tablet by mouth once daily Toimutrv-Ci-Emf-Fe-FA tab Take 1 tablet by mouth once [...] th twice daily. Take 1 tablet by [facility] once daily. Problems Active Problems Problem Classification [...] (2 sources) Patient encounter status; Translations: [Other retirement (current) drug therapy] 01-29-2024 Episodic Other aftercare (1 source) Long-term current use of drug therapy; Translations: [Other retirement (current) drug therapy] 08-09-2024 Episodic Other circulatory [...] 10-31-2022 Episodic Other aftercare (1 source) Other terminal gauger (current) drug therapy; Translations: [Encounter for long-term [...] Office Visit (LARA ) ----- KATIE FORDE ([id number]) 2000 F Date Time Provider Department 04/25/25 8:40 AM SANTI MCALLISTER During your visit today, we recorded the following information about you: Pulse Respiration Blood pressure Weight 99/minute 14/minute 110/66 132 kg Height 1.829 m Santi Mcallister MD 04/25/2025 9:52 AM Signed Santi Mcallister MD General Cardiology [address] [place] [phone] Chief Complaint Patient presents with: Recheck: 6 [...] mg capsule (more content not included)... Normal [facility] CBC-Complete Blood Cnt No Di ffon 04-15-2025 Erythrocyte distribution width (RBC) [Ratio] 12.2 % Normal 11.6-14.6 [facility] Comment on above: Performed By: #### L 501.9985, L100.0500, L503.6030, L501.9520, L500.4050 ####[facility] [address] [place], [place], [id number] Hematocrit (Bld) [Volume fraction] 40.4 % Normal 37-47 [facility] Comment on above: Performed By: #### L 501.9985, L100.0500, L503.6030, L501.9520, L500.4050 ####[facility] [address] [place], [address] Hemoglobin (Bld) [Mass/Vol] 14.0 g/dL Normal 12.0-15.0 [facility] Comment on above: Performed By: #### L 501.9985, L100.0500, L503.6030, L501.9520, L500.4050 ####[facility] [address] [place], [address] MCH (RBC) [Entitic mass] 30.9 pg Normal 27.0-32.0 [facility] Comment on above: Performed By: #### L 501.9985, L100.0500, L503.6030, L501.9520, L500.4050 ####[facility] [address] [place], [address] MCHC (RBC) [Mass/Vol] 34.7 g/dL Normal 32-36 [facility] Comment on above: Performed By: #### L 501.9985, L100.0500, L503.6030, L501.9520, L500.4050 ####[facility] [address] [place], [address] MCV (RBC) [Entitic vol] 89.2 fL Normal 81-99 [facility] Comment on above: Performed By: #### L 501.9985, L100.0500, L503.6030, L501.9520, L500.4050 ####[facility] [address] [place], [address] Platelet mean volume (Bld) [Entitic vol] 9.9 fL Normal 6.2-12.0 [facility] Comment on above: Performed By: #### L 501.9985, L100.0500, L503.6030, L501.9520, L500.4050 ####[facility] [address] [place], [address] Platelets (Bld) [#/Vol] 472 10*3/uL High 150-450 [facility] Comment on above: Performed By: #### L 501.9985, L100.0500, L503.6030, L501.9520, L500.4050 ####[facility] [address] [place], [address] RBC (Bld) [#/Vol] 4.53 10*6/uL Normal 4.2-5.4 [facility] Comment on above: Performed By: #### L 501.9985, L100.0500, L503.6030, L501.9520, L500.4050 ####[facility] [address] [place], [address] RDW SD 39.8 fl Normal 35.1-43.9 [facility] Comment on above: Performed By: #### L 501.9985, L100.0500, L503.6030, L501.9520, L500.4050 ####[facility] [address] [place], [address] WBC (Bld) [#/Vol] 9.0 10*3/uL Normal 4.4-11.0 [facility] Comment on above: Performed By: #### L 501.9985, L100.0500, L503.6030, L501.9520, L500.4050 ####[facility] [address] [place], [address] Comprehensive Metabolic [facility] 04-15-2025 Albumin [Mass/Vol] 4.1 g/dL Normal 3.5-5.0 [facility] Comment on above: Performed By: #### L 501.9985, L100.0500, L503.6030, L501.9520, L500.4050 ####[facility] [address] [place], [address] Albumin/Globulin [Mass ratio] 1.2 {ratio} Normal 0.9-2.4 [facility] Comment on above: Performed By: #### L 501.9985, L100.0500, L503.6030, L501.9520, L500.4050 ####[facility] [address] [place], [address] ALK PHOS 61 U/L Normal 35-104 [facility] Comment on above: Performed By: #### L 501.9985, L100.0500, L503.6030, L501.9520, L500.4050 ####[facility] [address] [place], [address] ALT [Catalytic activity/Vol] 55 U/L High <=34 [facility] Comment on above: Performed By: #### L 501.9985, L100.0500, L503.6030, L501.9520, L500.4050 ####[facility] [address] [place], [address] AST [Catalytic activity/Vol] 40 U/L High <=31 [facility] Comment on above: Performed By: #### L 501.9985, L100.0500, L503.6030, L501.9520, L500.4050 ####[facility] [address] [place], [address] Bilirubin [Mass/Vol] 0.49 mg/dL Normal 0.00-1.30 [facility] Comment on above: Performed By: #### L 501.9985, L100.0500, L503.6030, L501.9520, L500.4050 ####[facility] [address] [place], [address] BUN/CRE 12.0 RATIO Normal 10-20 [facility] Comment on above: Performed By: #### L 501.9985, L100.0500, L503.6030, L501.9520, L500.4050 ####[facility] [address], [address] Calcium [Mass/Vol] 9.1 mg/dL Normal 7.6-11.0 [facility] Comment on above: Performed By: #### L 501.9985, L100.0500, L503.6030, L501.9520, L500.4050 ####[facility] [address] [place], [address] Chloride [Moles/Vol] 102 mmol/L Normal 98-108 [facility] Comment on above: Performed By: #### L 501.9985, L100.0500, L503.6030, L501.9520, L500.4050 ####[facility] [address] [place], [address] CO2 [Moles/Vol] 22.6 mmol/L Normal 21.0-32.0 [facility] Comment on above: Performed By: #### L 501.9985, L100.0500, L503.6030, L501.9520, L500.4050 ####[facility] [address] [place], [address] Creatinine [Mass/Vol] 0.78 mg/dL Normal 0.70-1.20 [facility] Comment on above: Performed By: #### L 501.9985, L100.0500, L503.6030, L501.9520, L500.4050 ####[facility] [address] [place], [address] GAP 12 Normal 5-15 [facility] Comment on above: Performed By: #### L 501.9985, L100.0500, L503.6030, L501.9520, L500.4050 ####[facility] [address] [place], [address] GFR/1.73 sq M.predicted among non-blacks MDRD (S/P/Bld) [Vol rate/Area] 107 mL/min/{1.73_m2} Normal >60 [facility] Comment on above: Result Comment: mL/m in/1.73m2 CKD-EPI Creatinine Equation (2020) Performed By: #### L 501.9985, L100.0500, L503.6030, L501.9520, L500.4050 ####[facility] [address] [place], [address] Globulin (S) [Mass/Vol] 3.4 g/dL Normal 2.2-4.2 [facility] Comment on above: Performed By: #### L 501.9985, L100.0500, L503.6030, L501.9520, L500.4050 ####[facility] [address] [place], [address] Glucose [Mass/Vol] 111 mg/dL High 70-99 [facility] Comment on above: Performed By: #### L 501.9985, L100.0500, L503.6030, L501.9520, L500.4050 ####[facility] [address] [place], [address] Potassium [Moles/Vol] 3.7 mmol/L Normal 3.3-5.1 [facility] Comment on above: Performed By: #### L 501.9985, L100.0500, L503.6030, L501.9520, L500.4050 ####[facility] [address] [place], [address] Sodium [Moles/Vol] 137 mmol/L Normal 133-145 [facility] Comment on above: Performed By: #### L 501.9985, L100.0500, L503.6030, L501.9520, L500.4050 ####[facility] [address] [place], [address] T PROT 7.5 g/dL Normal 5.9-8.4 [facility] Comment on above: Performed By: #### L 501.9985, L100.0500, L503.6030, L501.9520, L500.4050 ####[facility] [address] [place], [address] Urea nitrogen [Mass/Vol] 9 mg/dL Normal 4-19 [facility] Comment on above: Performed By: #### L 501.9985, L100.0500, L503.6030, L501.9520, L500.4050 ####[facility] [address] [place], [address] Hemoglobin A1con 04-15-2025 HbA1c (Bld) [Mass fraction] 5.2 % Normal <=5.6 [facility] Comment on above: Result Comment: Norm al < 5.7 % Prediabetic 5.7 - 6.4 % Diabetic >or= 6.5 % Please note range changes. Performed By: #### L 501.9985, L100.0500, L503.6030, L501.9520, L500.4050 ####[facility] [address] [place], [address] Iron+Iron Binding Capacityon 04-15-2025 Iron [Mass/Vol] 133 ug/dL Normal 50-170 [facility] Comment on above: Performed By: #### L 501.9985, L100.0500, L503.6030, L501.9520, L500.4050 ####[facility] [address] [place], [address] IRON SATURATION 49.3 Normal 13-59 [facility] Comment on above: Performed By: #### L 501.9985, L100.0500, L503.6030, L501.9520, L500.4050 ####[facility] [address] [place], [address] TIBC 270 ug/dL Normal 250-450 [facility] Comment on above: Performed By: #### L 501.9985, L100.0500, L503.6030, L501.9520, L500.4050 ####[facility] [address] [place], [address] UIBC 137 ug/dL Low 228-428 [facility] Comment on above: Performed By: #### L 501.9985, L100.0500, L503.6030, L501.9520, L500.4050 ####[facility] [address] [place], [address] Thyroid Stim Hormone (TSH)on 04-15-2025 TSH 0.772 uIU/mL Normal 0.300-4.200 [facility] Comment on above: Performed By: #### L 501.9985, L100.0500, L503.6030, L501.9520, L500.4050 ####[facility] [address] [place], [address] CNOVon 04-02-2025 CNOV Office Visit (WOMITCH) ----- KATIE FORDE ([id number]) 2000 F Date Time Provider Department 04/02/25 [...] acetonide (KENALOG) (more content not included)... Normal [facility] CBC W Auto Differential pane l (Bld)on 02-18-2025 Basophils (Bld) [#/Vol] 0.09 10*3/uL Normal <0.11 [facility] Comment on above: Order Comment: Speci men Type: BLOOD SPECIMENOrdering Facility: [facility] Address: [address] [place] [address] Performed By: #### 5 7021-8, 4536-7 ####[facility] LABIA [id number] [place] [address] [place] Basophils/100 WBC (Bld) 1.1 % Normal [facility] Comment on above: Order Comment: Speci men Type: BLOOD SPECIMENOrdering Facility: [facility] Address: [address] [place] [address] Performed By: #### 5 7021-8, 7 ####[facility] LABIA [id number] [place] [address] [place] Differential cell count method Nom (Bld) Auto Normal [facility] Comment on above: Order Comment: Speci men Type: BLOOD SPECIMENOrdering Facility: [facility] Address: [address] [place] [address] Performed By: #### 5 7021-8, 4536-7 ####[facility] LABIA [id number] [place] [address] [place] Eosinophils (Bld) [#/Vol] 0.07 10*3/uL Normal <0.46 [facility] Comment on above: Order Comment: Speci men Type: BLOOD SPECIMENOrdering Facility: [facility] Address: [address] [place] [address] Performed By: #### 5 7021-8, 4536-7 ####[facility] LABCLIA [id number] [place] [address] [place] Eosinophils/100 WBC (Bld) 0.9 % Normal [facility] Comment on above: Order Comment: Speci men Type: BLOOD SPECIMENOrdering Facility: [facility] Address: [address] [place] [address] Performed By: #### 5 7021-8, 4536-7 ####[facility] LABCLIA [id number] [place] [address] [place] Erythrocyte distribution width (RBC) [Ratio] 12.2 % Normal 11.5-15.0 [facility] Comment on above: Order Comment: Speci men Type: BLOOD SPECIMENOrdering Facility: [facility] Address: [address] [place] [address] Performed By: #### 5 7021-8, 7 ####[facility] LABCLIA [id number] [place] [address] [place] Hematocrit (Bld) [Volume fraction] 41.7 % Normal 36.0-46.0 [facility] Comment on above: Order Comment: Speci men Type: BLOOD SPECIMENOrdering Facility: [facility] Address: [address] [place] [address] Performed By: #### 5 7021-8, 4536-7 ####[facility] LABCLIA [id number] [place] [id number] [place] Hemoglobin (Bld) [Mass/Vol] 14.4 g/dL Normal 11.5-15.5 [facility] Comment on above: Order Comment: Speci men Type: BLOOD SPECIMENOrdering Facility: [facility] Address: [address] [place] [address] Performed By: #### 5 7021-8, 4536-7 ####[facility] LABCLIA [id number] [place] [address] [place] Immature granulocytes (Bld) [#/Vol] 0.03 10*3/uL Normal <0.10 [facility] Comment on above: Order Comment: Speci men Type: BLOOD SPECIMENOrdering Facility: [facility] Address: [address] [place] [address] Performed By: #### 5 7021-8, 4537-7 ####[facility] LABCLIA [id number] [address] [place] Immature granulocytes/100 WBC (Bld) 0.4 % Normal [facility] Comment on above: Order Comment: Speci men Type: BLOOD SPECIMENOrdering Facility: [facility] Address: [address] [place] [address] Performed By: #### 5 7021-8, 4537-7 ####[facility] LABCLIA [id number] [place] [address] [place] Lymphocytes (Bld) [#/Vol] 2.40 10*3/uL Normal 1.00-4.00 [facility] Comment on above: Order Comment: Speci men Type: BLOOD SPECIMENOrdering Facility: [facility] Address: [address] [place] [address] Performed By: #### 5 7021-8, 4537-7 ####[facility] LABCLIA [id number] [place] [address] [place] Lymphocytes/100 WBC (Bld) 29.2 % Normal [facility] Comment on above: Order Comment: Speci men Type: BLOOD SPECIMENOrdering Facility: [facility] Address: [address] [place] [address] Performed By: #### 5 7021-8, 4537-7 ####[facility] LABCLIA [id number] [place] [address] [place] MCH (RBC) [Entitic mass] 31.1 pg Normal 26.0-34.0 [facility] Comment on above: Order Comment: Speci men Type: BLOOD SPECIMENOrdering Facility: [facility] Address: [address] [place] [address] Performed By: #### 5 7021-8, 4536-7 ####[facility] LABCLIA [id number] [place] [address] [place] MCHC (RBC) [Mass/Vol] 34.5 g/dL Normal 30.5-36.0 [facility] Comment on above: Order Comment: Speci men Type: BLOOD SPECIMENOrdering Facility: [facility] Address: [address] [place] [address] Performed By: #### 5 7021-8, 4536-7 ####[facility] LABCLIA [id number] [place] [address] [place] MCV (RBC) [Entitic vol] 90.1 fL Normal 80.0-100.0 [facility] Comment on above: Order Comment: Speci men Type: BLOOD SPECIMENOrdering Facility: [facility] Address: [address] [place] [address] Performed By: #### 5 7021-8, 7 ####[facility] LABCLIA [id number] [place] [address] [place] Monocytes (Bld) [#/Vol] 0.46 10*3/uL Normal <0.87 [facility] Comment on above: Order Comment: Speci men Type: BLOOD SPECIMENOrdering Facility: [facility] Address: [address] [place] [address] Performed By: #### 5 7021-8, 7 ####[facility] LABCLIA [id number] [place] [address] [place] Monocytes/100 WBC (Bld) 5.6 % Normal [facility] Comment on above: Order Comment: Speci men Type: BLOOD SPECIMENOrdering Facility: [facility] Address: [address] [place] [address] Performed By: #### 5 7021-8, 7 ####[facility] LABCLIA [id number] [place] [address] [place] Neutrophils (Bld) [#/Vol] 5.17 10*3/uL Normal 1.45-7.50 [facility] Comment on above: Order Comment: Speci men Type: BLOOD SPECIMENOrdering Facility: [facility] Address: [address] [place] [address] Performed By: #### 5 7021-8, 7 ####[facility] LABIA [id number] [place] [address] [place] Neutrophils/100 WBC (Bld) 62.8 % Normal [facility] Comment on above: Order Comment: Speci men Type: BLOOD SPECIMENOrdering Facility: [facility] Address: [address] [place] [address] Performed By: #### 5 7021-8, 7 ####[facility] LABIA [id number] [place] [address] [place] Nucleated RBC (Bld) [#/Vol] 10*3/uL Normal <0.01 [facility] Comment on above: Order Comment: Speci men Type: BLOOD SPECIMENOrdering Facility: [facility] Address: [address] [place] [address] Performed By: #### 5 7021-8, 4536-12 ####[facility] LABIA [id number] [place] [address] [place] Nucleated RBC/100 WBC (Bld) [Ratio] 0.0 /100 WBC Normal [facility] Comment on above: Order Comment: Speci men Type: BLOOD SPECIMENOrdering Facility: [facility] Address: [address] [place] [address] Performed By: #### 5 7021-8, 4536-12 ####[facility] LABCLIA [id number] [address] [address] [place] Platelet mean volume (Bld) [Entitic vol] 9.9 fL Normal 9.0-12.7 [facility] Comment on above: Order Comment: Speci men Type: BLOOD SPECIMENOrdering Facility: [facility] Address: [address] [place] [address] Performed By: #### 5 7021-8, 4536-7 ####[facility] LABIA [id number] [place] [id number] [place] Platelets (Bld) [#/Vol] 508 10*3/uL High 150-400 [facility] Comment on above: Order Comment: Speci men Type: BLOOD SPECIMENOrdering Facility: [facility] Address: [address] [place] [address] Performed By: #### 5 7021-8, 4536-7 ####[facility] LABIA [id number] [place] [id number] [place] RBC (Bld) [#/Vol] 4.63 10*6/uL Normal 3.90-5.20 [facility] Comment on above: Order Comment: Speci men Type: BLOOD SPECIMENOrdering Facility: [facility] Address: [address] [place] [address] Performed By: #### 5 7021-8, 4536-7 ####[facility] LABIA [id number] [place] [id number] [place] WBC (Bld) [#/Vol] 8.22 10*3/uL Normal 3.70-11.00 [facility] Comment on above: Order Comment: Speci men Type: BLOOD SPECIMENOrdering Facility: [facility] Address: [address] [place] [address] Performed By: #### 5 7021-8, 4536-7 ####[facility] LABCLIA [id number] [facility] [address] [place] [address] [place] CRP SerPl-mCncon 02-18-2025 CRP [Mass/Vol] 0.8 mg/dL Normal <0.9 [facility] Comment on above: Order Comment: Speci men Type: BLOOD SPECIMENOrdering Facility: [facility] Address: [address] [place] [address] Performed By: #### 2 276-4, 3016-3, 1988- ####[facility] LABCLIA [id number] [address] [place] [address] [place] Comprehensive metabolic 2000 panelon 02-18-2025 Albumin [Mass/Vol] 4.3 g/dL Normal 3.9-4.9 [facility] Comment on above: Order Comment: Speci men Type: BLOOD SPECIMENOrdering Facility: [facility] Address: [address] [place] [address] Performed By: #### 3 051-0, 3024-7, 95622-6, 04088-2 ####[facility] LABCLIA [id number] [address] [address] [place] [place] ALP [Catalytic activity/Vol] 63 U/L Normal 34-123 [facility] Comment on above: Order Comment: Speci men Type: BLOOD SPECIMENOrdering Facility: [facility] Address: [address] [place] [address] Performed By: #### 3 051-0, 3024-7, 58699-1, 57604-2 ####[facility] LABCLIA [id number] [address] [place] [address] [place] ALT [Catalytic activity/Vol] 49 U/L High 7-38 [facility] Comment on above: Order Comment: Speci men Type: BLOOD SPECIMENOrdering Facility: [facility] Address: [address] [place] [address] Performed By: #### 3 051-0, 3024-7, 04197-9, ####[facility] LABCLIA [id number] [address] [address] [place] Anion gap [Moles/Vol] 16 mmol/L High 8-15 [facility] Comment on above: Order Comment: Speci men Type: BLOOD SPECIMENOrdering Facility: [facility] Address: [address] [place], [place] [address] Performed By: #### 3 051-0, 3023-7, 64648-6, ####[facility] LABCLIA [id number] [address] [address] [place] AST [Catalytic activity/Vol] 41 U/L High 13-35 [facility] Comment on above: Order Comment: Speci men Type: BLOOD SPECIMENOrdering Facility: [facility] Address: [address] [place], [place] [address] Performed By: #### 3 051-0, 302-7, 02298-4, ####[facility] LABCLIA [id number] [address] [address] [place] Bilirubin [Mass/Vol] 0.5 mg/dL Normal 0.2-1.3 [facility] Comment on above: Order Comment: Speci men Type: BLOOD SPECIMENOrdering Facility: [facility] Address: [address] [place] [address] Performed By: #### 3 051-0, 3023-7, 94644-8, ####[facility] LABCLIA [id number] [address] [address] [place] Calcium [Mass/Vol] 9.3 mg/dL Normal 8.5-10.2 [facility] Comment on above: Order Comment: Speci men Type: BLOOD SPECIMENOrdering Facility: [facility] Address: [address] [place] [address] Performed By: #### 3 051-0, 302-7, 41701-4, 52877-1 ####[facility] LABCLIA [id number] [address] [address] [place] Chloride [Moles/Vol] 102 mmol/L Normal 98-107 [facility] Comment on above: Order Comment: Speci men Type: BLOOD SPECIMENOrdering Facility: [facility] Address: [address] [place] [address] Performed By: #### 3 051-0, 302-7, 19533-3, 72087-5 ####[facility] LABIA [id number] [place] [address] [place] CO2 [Moles/Vol] 19 mmol/L Low 22-30 [facility] Comment on above: Order Comment: Speci men Type: BLOOD SPECIMENOrdering Facility: [facility] Address: [address] [place] [address] Performed By: #### 3 051-0, 3024-7, 00636-8, 77874-2 ####[facility] LABIA [id number] [place] [address] [place] Creatinine [Mass/Vol] 0.74 mg/dL Normal 0.58-0.96 [facility] Comment on above: Order Comment: Speci men Type: BLOOD SPECIMENOrdering Facility: [facility] Address: [address] [place] [address] Performed By: #### 3 051-0, 302-7, 48351-1, 19500-8 ####[facility] LABIA [id number] [place] [id number] [place] eGFRcr SerPlBld CKD-EPI 2020 115 mL/min/1.73m??? Normal >=60 [facility] Comment on above: Order Comment: Speci men Type: BLOOD SPECIMENOrdering Facility: [facility] Address: [address] [place] [address] Result Comment: Shantal mated Glomerular Filtration Rate [...] GFR. Performed By: #### 3 051-0, 4-7, 51084-2, 94313-6 ####[facility] LABIA [id number] [address] [address] [place] Glucose [Mass/Vol] 88 mg/dL Normal 74-99 [facility] Comment on above: Order Comment: Lore buitrago Type: BLOOD SPECIMENOrdering Facility: [facility] Address: [address] [place] [address] Result Comment: The [place] Diabetes Association (ADA) provides guidance for cutoff [...] Standards of Medical Care in Diabetes 2016, [place] Diabetes Association. Diabetes Care. 2016.39(Suppl 1). Performed By: #### 3 051-0, 3024-7, 45937-5, 81668-5 ####[facility] LABIA [id number] [address] [address] [place] Potassium [Moles/Vol] 4.5 mmol/L Normal 3.7-5.1 [facility] Comment on above: Order Comment: Lore buitrago Type: BLOOD SPECIMENOrdering Facility: [facility] Address: [address] [place] [address] Performed By: #### 3 051-0, 302-7, 44199-3, 40161-4 ####[facility] LABIA [id number] [address] [address] [place] Protein [Mass/Vol] 7.8 g/dL Normal 6.3-8.0 [facility] Comment on above: Order Comment: Speci men Type: BLOOD SPECIMENOrdering Facility: [facility] Address: [address] [place] [address] Performed By: #### 3 051-0, 3024-7, 29937-5, 53462-6 ####[facility] [id number] [place] [id number] [place] Sodium [Moles/Vol] 137 mmol/L Normal 136-144 [facility] Comment on above: Order Comment: Speci men Type: BLOOD SPECIMENOrdering Facility: [facility] Address: [address] [place] [address] Performed By: #### 3 051-0, 3024-7, , 59379-8 ####[facility] [id number] [place] [id number] [place] Urea nitrogen [Mass/Vol] 9 mg/dL Normal 7-21 [facility] Comment on above: Order Comment: Speci men Type: BLOOD SPECIMENOrdering Facility: [facility] Address: [address] [place] [address] Performed By: #### 3 051-0, 3024-7, 93109-9, 74744-3 ####[facility] [id number] [place] [id number] [place] ESR Westergren method (Bld) [Velocity]on 02-18-2025 ESR (Bld) [Velocity] 26 mm/h High 0-20 [facility] Comment on above: Order Comment: Speci men Type: BLOOD SPECIMENOrdering Facility: [facility] Address: [address] [place] [address] Performed By: #### 5 7021-8, 4537-7 ####[facility] LABIA [id number] [address] [address] [place] Ferritin SerPl-mCncon 2024 Ferritin [Mass/Vol] 94.3 ng/mL Normal 14.7-205.1 [facility] Comment on above: Order Comment: Speci men Type: BLOOD SPECIMENOrdering Facility: [facility] Address: [address] [place] [address] Performed By: #### 2 276-4, 3016-3, 1987- ####[facility] LABIA [id number] [address] [place] Folate SerPl-mCncon 02-19-20 Folate [Mass/Vol] 11.8 ng/mL Normal >4.7 [facility] Comment on above: Order Comment: Speci men Type: BLOOD SPECIMENOrdering Facility: [facility] Address: [address] [place] [address] Performed By: #### 2 284-8, 2132-9 ####[facility] [id number] [place] [address] [place] HbA1c (Bld)on 02-18-2025 Average glucose Estimated from glycated hemoglobin (Bld) [Mass/Vol] 88 mg/dL Normal [facility] Comment on above: Order Comment: Speci men Type: BLOOD SPECIMENOrdering Facility: [facility] Address: [address] [place] [address] Result Comment: eAG: (Estimated average glucose) is a calculated value from HgbA1c and is manufacturers service representative of the average blood glucose level in the last 2-3 month period. Performed By: #### 5 5454-3 ####[facility] LABIA [id number] [place] [id number] [place] HbA1c (Bld) [Mass fraction] 4.7 % Normal 4.3-5.6 [facility] Comment on above: Order Comment: Speci men Type: BLOOD SPECIMENOrdering Facility: [facility] Address: [address] [place] [address] Result Comment: [place] Diabetes Association guidelines indicate that patients with HgbA1c in the range 5.7-6.4% are at increased risk for development of diabetes, and intervention by lifestyle modification may be beneficial. HgbA1c greater or equal to 6.5% is considered diagnostic of diabetes. Performed By: #### 5 5454-3 ####[facility] LABCLIA [id number] [place] [id number] [place] Iron and Iron binding capaci ty panelon 02-18-2025 Iron [Mass/Vol] 127 ug/dL Normal 41-186 [facility] Comment on above: Order Comment: Speci men Type: BLOOD SPECIMENOrdering Facility: [facility] Address: [address] [place] [address] Performed By: #### 3 051-0, 3024-7, 54286-9, 02433-1 ####[facility] LABCLIA [id number] [place] [address] [place] Iron binding capacity [Mass/Vol] 297 ug/dL Normal 232-386 [facility] Comment on above: Order Comment: Speci men Type: BLOOD SPECIMENOrdering Facility: [facility] Address: [address] [place] [address] Performed By: #### 3 051-0, 3024-7, 88639-4, 91569-2 ####[facility] LABCLIA [id number] [address] [address] [place] Iron/TIBC [Molar ratio] 42.8 % Normal 15.0-57.0 [facility] Comment on above: Order Comment: Speci men Type: BLOOD SPECIMENOrdering Facility: [facility] Address: [address] [place] [address] Performed By: #### 3 051-0, 3024-7, 45986-7, 71152-2 ####[facility] LABCLIA [id number] [place] [id number] [place] T3Free SerPl-mCncon 02-19-20 25 Free T3 [Mass/Vol] 3.7 pg/mL Normal 2.3-4.1 [facility] Comment on above: Order Comment: Lore buitrago Type: BLOOD SPECIMENOrdering Facility: [facility] Address: [address] [place] [address] Performed By: #### 3 051-0, 3024-7, 87368-5, 92472-9 ####[facility] LABIA [id number] [place] [id number] [place] T4 Free SerPl-mCncon 025 Free T4 [Mass/Vol] 1.1 ng/dL Normal 0.9-1.7 [facility] Comment on above: Order Comment: Lore buitrago Type: BLOOD SPECIMENOrdering Facility: [facility] Address: [address] [place] [address] Performed By: #### 3 051-0, 3024-7, 27261-4, 27317-2 ####[facility] LABIA [id number] [place] [address] [place] TSH SerPl-aCncon 02-18-2025 TSH Qn 0.711 m[IU]/L Normal 0.270-4.200 [facility] Comment on above: Order Comment: Lore buitrago Type: BLOOD SPECIMENOrdering Facility: [facility] Address: [address] [place] [address] Result Comment: If t he patient is , TSH reference range varies by gestational period: First Trimester (weeks 9-12): 0.180-2.990 mIU/L Second Trimester: 0.110-3.980 mIU/L Third Trimester: 0.480-4.710 mIU/L Rolando Cheatham et al. A Practical Approach for the Verifications and Determination of Site- and Trimester-Specific Reference Intervals for Thyroid Function tests in . Thyroid, 2019:29:3:412-420. Wiliam Escobar, et al. 2017 Guidelines of the [place] Thyroid Association for the Diagnosis and Management of Thyroid Disease during and the . Thyroid, 2017:27:3:315-389. Performed By: #### 2 276-4, 3016-3, 1987- ####[facility] LABCLIA [id number] [place] [id number] [place] VITAMIN B6/PYRIDOXINon 02-18 VITAMIN B6 51.8 nmol/L Normal 20.0-125.0 [facility] Comment on above: Order Comment: Speci men Type: BLOOD SPECIMENOrdering Facility: [facility] Address: [address] [place] [address] Result Comment: INTE RPRETIVE INFORMATION: Vitamin B6 (Pyridoxal 5-Phosphate) Pyridoxal 5'-phosphate measured in a specimen collected following an 8-hour or overnight fast accurately indicates vitamin B6 nutritional status. Non-fasting specimen concentration reflects recent vitamin intake. This test was developed and its performance characteristics determined by [facility]. It has not been cleared or approved by the [place] Food and Drug Administration. This test was performed in a CLIA certified laboratory and is intended for clinical purposes. Performed By: [facility] [address] [place] [address] Heel Cover Softener: Yared Curry MD, PhD CLIA Number: [id number] Performed By: #### V ITB6 ####[facility] [id number] [place] [id number] Vit B12 SerPl-ncon 025 Cobalamin (Vitamin B12) [Mass/Vol] 472 pg/mL Normal 232-1245 [facility] Comment on above: Order Comment: Speci men Type: BLOOD SPECIMENOrdering Facility: [facility] Address: [address] [place] [address] Performed By: #### 2 284-8, 2132-9 ####[facility] LABCLIA [id number] [place] [id number] [place] CNPNon 02-14-2025 CNPN Telephone (INTMWS) ----- JONATHANKATIE ([id number]) 2000 F Date Time Provider Department 02/14/25 KATE SILVA During your visit today, we recorded the following information about you: Los Chamorro RN 02/14/2025 2:26 PM Signed [facility] in [facility] and he reports they do not have [...] of COVID-19 (more content not included)... Normal [facility] CNOVon 02-09-2025 CNOV Office Visit (INTMWS ) ----- KATIE FORDE ([id number]) 2000 F Date Time Provider Department 02/09/25 [...] needed (f (more content not included)... Normal [facility] CNOVon 01-03-2025 CNOV Office Visit (INTMWS ) ----- KATIE FORDE ([id number]) 2000 F Date Time Provider Department 01/03/25 1:20 PM [facility] INTL[facility]WS During your visit today, we recorded the following information about you: Pulse Blood pressure Weight Last Period 79/minute 120/80 131.5 kg 12/19/24 Sher Hollingsworth APRN.JAMB CUTTER 01/03/2025 3:52 PM Signed SUBJECTIVE Katie Forde [...] Types: Cigarettes (more content not included)... Normal [facility] CNOVon 12-06-2024 CNOV Office Visit (INTMWS ) ----- KATIE FORDE ([id number]) 2000 F Date Time Provider Department 12/06/24 2:00 PM [facility] [place] During your visit today, we recorded the following information about you: Pulse Blood pressure Weight 100/minute 120/64 132.4 kg Sher Hollingsworth APRN.JAMB CUTTER 12/06/2024 2:52 PM Signed SUBJECTIVE Katie Forde is a 23 year old female here today for a check up on her medical problems. Chief Complaint Patient presents with: Recheck: was seen in [facility] for elevated heart rate HPI Katie Forde is a 23-year-old female with a history of anxiety, presenting with persistent and worsening anxiety. She also reports worsening anxiety, which has been severe enough to limit her ability to stay in public places, such as a recent episode at [facility] where she could only stay for 5 minutes before needing to leave. She describes frequent palpitations, particularly at night, which make it difficult for her to fall asleep. She also notes a new anxious tic, where she holds her breast or moves her leg repetitively without realizing it. She reports feeling anxious during a recent date at [employer], despite feeling safe. She denies recent panic [...] [START ON (more content not included)... Normal [facility] 12 Lead EKGon 12-02-2024 12 Lead EKG [facility] [address] [place] [address] 12 Lead EKG 12/02/242057 MR#: [id number] Acct: [id number] Name: KATIE FORDE Rep #: [id number] : 2000 From: Yuly Aquino MD Attending [...] normal ECG Confirmed by MILES MEDRANO, NIMCO ([id number]), assistant film editor LOS ZARATE ([id number]) on 12/06/2024 6:47:49 AM Referred By: TL Confirmed By: NIMCO AQUINO MD 12/06/24 0647 Date Yuly Aquino MD CC: Dr. Kate Silva MD; Dr. Mike Feldman, DO Signed Normal [facility] Absolute lymphocyte countOrd ered By: Mike Feldman on 12-02-2024 Lymphocytes Auto (Unsp spec) [#/Vol] 3.93 10*3/uL 0.83-4.51 [facility] Absolute neutrophil countOrd ered By: Mike Feldman on 12-02-2024 Neutrophils (Bld) [#/Vol] 9.5 10*3/uL High 2.0-7.7 [facility] Anion gap in Serum or Plasma Ordered By: Mike Feldman on 12-02-2024 Anion gap [Moles/Vol] 14 mmol/L 5-15 [facility] Automated lymphocyte count a s percentage of total leukocytesOrdered By: Mike Feldman on 12-02-2024 Lymphocytes/100 WBC Auto (Unsp spec) 27.4 % 19-41 [facility] BUN/creatinine ratioOrdered By: Mike Feldman on 12-02-2024 Urea nitrogen/Creatinine [Mass ratio] 11.6 mg/mg 10- [facility] Basic Metabolic Profile (BMP )on 12-02-2024 BUN/CRE 11.6 RATIO Normal - [facility] Comment on above: Performed By: #### L 700.8000, L300.8000, L500.2500, L100.0100 #### [facility] [address] [place], [address] Calcium [Mass/Vol] 8.7 mg/dL Normal 7.6-11.0 [facility] Comment on above: Performed By: #### L 700.8000, L300.8000, L500.2500, L100.0100 #### [facility] [address] [place], [address] Chloride [Moles/Vol] 101 mmol/L Normal 98-108 [facility] Comment on above: Performed By: #### L 700.8000, L300.8000, L500.2500, L100.0100 #### [facility] [address] [place], [address] CO2 [Moles/Vol] 20.6 mmol/L Low 21.0-32.0 [facility] Comment on above: Performed By: #### L 700.8000, L300.8000, L500.2500, L100.0100 #### [facility] [address] [place], [address] Creatinine [Mass/Vol] 0.89 mg/dL Normal 0.70-1.20 [facility] Comment on above: Performed By: #### L 700.8000, L300.8000, L500.2500, L100.0100 #### [facility] [address] [place], [address] ECRCL 150.27 ml/min Normal 50-250 [facility] Comment on above: Performed By: #### L 700.8000, L300.8000, L500.2500, L100.0100 #### [facility] [address] [place], [address] GAP 14 Normal 5-15 [facility] Comment on above: Performed By: #### L 700.8000, L300.8000, L500.2500, L100.0100 #### [facility] [address] [place], [address] GFR/1.73 sq M.predicted among non-blacks MDRD (S/P/Bld) [Vol rate/Area] 92 mL/min/{1.73_m2} Normal >60 [facility] Comment on above: Result Comment: mL/m in/1.73m2 CKD-EPI Creatinine Equation (2020) Performed By: #### L 700.8000, L300.8000, L500.2500, L100.0100 #### [facility] [address] [place], [address] Glucose [Mass/Vol] 199 mg/dL High 70-99 [facility] Comment on above: Performed By: #### L 700.8000, L300.8000, L500.2500, L100.0100 #### [facility] [address] [place], [address] Potassium [Moles/Vol] 3.7 mmol/L Normal 3.3-5.1 [facility] Comment on above: Performed By: #### L 700.8000, L300.8000, L500.2500, L100.0100 #### [facility] [address] [place], [address] Sodium [Moles/Vol] 136 mmol/L Normal 133-145 [facility] Comment on above: Performed By: #### L 700.8000, L300.8000, L500.2500, L100.0100 #### [facility] [address] [place], [address] Urea nitrogen [Mass/Vol] 10 mg/dL Normal 4-19 [facility] Comment on above: Performed By: #### L 700.8000, L300.8000, L500.2500, L100.0100 #### [facility] [address] [place], [address] Basophil percentageOrdered B y: Mike Le on 12-02-2024 Basophils/100 WBC (Bld) 0.6 % 0-1 [facility] Bilirubin Test strip Ql (U)O rdered By: Mike Feldman on 12-02-2024 Bilirubin Ql (U) Negative Negative [facility] CBC W/Diff, Automatedon 06- Absolute Lymph 3.93 X10 3/uL Normal 0.83-4.51 [facility] Comment on above: Performed By: #### L 700.8000, L300.8000, L500.2500, L100.0100 #### [facility] [address] [place], [address] Absolute Neut 9.5 X10 3/uL High 2.0-7.7 [facility] Comment on above: Performed By: #### L 700.8000, L300.8000, L500.2500, L100.0100 #### [facility] [address] [place], [address] Basophils/100 WBC (Bld) 0.6 % Normal 0-1 [facility] Comment on above: Performed By: #### L 700.8000, L300.8000, L500.2500, L100.0100 #### [facility] [address] [place], [address] Eosinophils/100 WBC (Bld) 0.6 % Normal 0-5 [facility] Comment on above: Performed By: #### L 700.8000, L300.8000, L500.2500, L100.0100 #### [facility] [address] [place], [address] Erythrocyte distribution width (RBC) [Ratio] 11.9 % Normal 11.6-14.6 [facility] Comment on above: Performed By: #### L 700.8000, L300.8000, L500.2500, L100.0100 #### [facility] [address] [place], [address] Hematocrit (Bld) [Volume fraction] 40.7 % Normal 37-47 [facility] Comment on above: Performed By: #### L 700.8000, L300.8000, L500.2500, L100.0100 #### [facility] [address] [place], [address] Hemoglobin (Bld) [Mass/Vol] 14.3 g/dL Normal 12.0-15.0 [facility] Comment on above: Performed By: #### L 700.8000, L300.8000, L500.2500, L100.0100 #### [facility] [address] [place], [address] IG% 0.300 Normal 0.0-0.9 [facility] Comment on above: Result Comment: IG% - Immature Granulocytes (promyelocytes, myelocytes and metamyelocytes) > 1% indicates that a LEFT SHIFT is Present. Performed By: #### L 700.8000, L300.8000, L500.2500, L100.0100 #### [facility] [address] [place], [address] Lymphocytes/100 WBC (Bld) 27.4 % Normal 19-41 [facility] Comment on above: Performed By: #### L 700.8000, L300.8000, L500.2500, L100.0100 #### [facility] [address] [place], [address] MCH (RBC) [Entitic mass] 31.0 pg Normal 27.0-32.0 [facility] Comment on above: Performed By: #### L 700.8000, L300.8000, L500.2500, L100.0100 #### [facility] [address] [place], [address] MCHC (RBC) [Mass/Vol] 35.1 g/dL Normal 32-36 [facility] Comment on above: Performed By: #### L 700.8000, L300.8000, L500.2500, L100.0100 #### [facility] [address] [place], [address] MCV (RBC) [Entitic vol] 88.1 fL Normal 81-99 [facility] Comment on above: Performed By: #### L 700.8000, L300.8000, L500.2500, L100.0100 #### [facility] [address] [place], [address] Monocytes/100 WBC (Bld) 5.0 % Normal 0-10 [facility] Comment on above: Performed By: #### L 700.8000, L300.8000, L500.2500, L100.0100 #### [facility] [address] [place], [address] Neutrophils/100 WBC (Bld) 66.1 % Normal 47-70 [facility] Comment on above: Performed By: #### L 700.8000, L300.8000, L500.2500, L100.0100 #### [facility] [address] [place], [address] Nucleated RBC (Bld) [#/Vol] 0 10*3/uL Normal 0-5 [facility] Comment on above: Performed By: #### L 700.8000, L300.8000, L500.2500, L100.0100 #### [facility] [address] [place], [address] Platelet mean volume (Bld) [Entitic vol] 9.6 fL Normal 6.2-12.0 [facility] Comment on above: Performed By: #### L 700.8000, L300.8000, L500.2500, L100.0100 #### [facility] [address] [place], [address] Platelets (Bld) [#/Vol] 494 10*3/uL High 150-450 [facility] Comment on above: Performed By: #### L 700.8000, L300.8000, L500.2500, L100.0100 #### [facility] [address] [place], [address] RBC (Bld) [#/Vol] 4.62 10*6/uL Normal 4.2-5.4 [facility] Comment on above: Performed By: #### L 700.8000, L300.8000, L500.2500, L100.0100 #### [facility] [address] [place], [address] RDW SD 38.2 fl Normal 35.1-43.9 [facility] Comment on above: Performed By: #### L 700.8000, L300.8000, L500.2500, L100.0100 #### [facility] [address] [place], [address] WBC (Bld) [#/Vol] 14.3 10*3/uL High 4.4-11.0 [facility] Comment on above: Performed By: #### L 700.8000, L300.8000, L500.2500, L100.0100 #### [facility] [address] [place], [address] Carbon dioxide, total [Moles /volume] in Central venous bloodOrdered By: Mike Feldman on 12-02-2024 CO2 [Moles/Vol] 20.6 mmol/L Low 21.0-32.0 [facility] Chloride assayOrdered By: Jasiel Feldman on 12-02-2024 Chloride [Moles/Vol] 101 mmol/L 98-108 [facility] D-Dimer Quantitative (DVT/PE )on 12-02-2024 D-DIMER QUANT < 0.27 Low 0.27-0.49 [facility] Comment on above: Result Comment: NORM AL D-Dimer level (<0.50) indicates no DVT or PE. Performed By: #### L 700.8000, L300.8000, L500.2500, L100.0100 #### [facility] [address] [place], [address] Emergency Department Summary on 12-02-2024 Emergency Department Summary [facility] Medical Records Department [address] [place] [address] Emergency Department Summary 12/02/24 MR#: [id number] Acct: [id number] Name: KATIE FORDE Rep #: [id number] : 2000 23 From: Mike Caballero PCP: Dr. Kate Silva MD Status:DEP ER Location: ED HPI History of Present Illness Chief Complaint: Palpitations Informant: patient Narrative Narrative: Patient presents noting more frequent PVCs are qzus-fu-eygv for last 2 days. She has had [...] lesions no (more content not included)... Normal [facility] Eosinophil percentageOrdered By: Mike Feldman on 12-02-2024 Eosinophils/100 WBC (Bld) 0.6 % 0-5 [facility] Erythrocyte distribution wid th ratioOrdered By: Mike Feldman on 12-02-2024 Erythrocyte distribution width (RBC) [Ratio] 11.9 % 11.6-14.6 [facility] Erythrocyte distribution wid th standard deviationOrdered By: Mike Feldman on 12-02-2024 Erythrocyte distribution width (RBC) [Ratio] 38.2 fl 35.1-43.9 [facility] Glomerular filtration rate ( GFR) estimation/1.73 sq m using serum, plasma, or whole bOrdered By: Mike Feldman on 12-02-2024 GFR/1.73 sq M.predicted among non-blacks MDRD (S/P/Bld) [Vol rate/Area] 92 mL/min/{1.73_m2} >60 [facility] Comment on above: mL/min/1.73m2 CKD-EP I Creatinine Equation (2020) Hematocrit Auto (Bld) [Volum e fraction]Ordered By: Mike Feldman on 12-02-2024 Hematocrit (Bld) [Volume fraction] 40.7 % 37-47 [facility] Hemoglobin measurementOrdere d By: Mike Feldman on 12-02-2024 Hemoglobin (Bld) [Mass/Vol] 14.3 g/dL 12.0-15.0 [facility] Immature granulocytes/100 WB C Auto (Bld)Ordered By: Mike Feldman 12-02-2024 Immature granulocytes/100 WBC (Bld) 0.300 % 0.0-0.9 [facility] Comment on above: IG% - Immature Granu locytes (promyelocytes, myelocytes and metamyelocytes) > 1% indicates that a LEFT SHIFT is Present. Ketones Test strip Ql (U)Ord ered By: Mike Feldman on 12-02-2024 Ketones Ql (U) Negative Negative [facility] MCV (mean corpuscular volume ) determinationOrdered By: Mike Feldman 12-02-2024 MCV (RBC) [Entitic vol] 88.1 fL 81-99 [facility] Mean corpuscular hemoglobin (MCH) determinationOrdered By: Mike Feldman 12-02-2024 MCH (RBC) [Entitic mass] 31.0 pg 27.0-32.0 [facility] Mean corpuscular hemoglobin concentration (MCHC) determinationOrdered By: Mike Feldman 12-02-2024 MCHC (RBC) [Mass/Vol] 35.1 g/dL 32-36 [facility] Mean platelet volume determi nationOrdered By: Mike Feldman on 12-02-2024 Platelet mean volume (Bld) [Entitic vol] 9.6 fL 6.2-12.0 [facility] Microscopic analysis of urin e for red blood cells (RBC)Ordered By: Mike Feldman on 12-02-2024 Microscopic analysis of urine for red blood cells (RBC) 0-5 SEEN /hpf 0-5 [facility] Monocyte percentageOrdered B y: Mike Feldman on 12-02-2024 Monocytes/100 WBC (Bld) 5.0 % 0-10 [facility] Mucus LM Ql (Urine sed)Order ed By: Mike Feldman on 12-02-2024 Mucus Ql (Urine sed) 0 SEEN /hpf [facility] Neutrophil percentageOrdered By: Mike Feldman on 12-02-2024 Neutrophils/100 WBC (Bld) 66.1 % 47-70 [facility] Nitrite Test strip Ql (U)Ord ered By: Mike Feldman on 12-02-2024 Nitrite Ql (U) Negative Negative [facility] Nucleated red blood cell per centageOrdered By: Mike Feldman on 12-02-2024 Nucleated RBC/100 WBC (Bld) [Ratio] 0 % 0-5 [facility] Platelet countOrdered By: Jasiel Feldman on 12-02-2024 Platelets (Bld) [#/Vol] 494 10*3/uL High 150-450 [facility] Potassium measurement (mass/ volume)Ordered By: Mike Feldman on 12-02-2024 Potassium (Unsp spec) [Mass/Vol] 3.7 mmol/L 3.3-5.1 [facility] Protein Test strip Ql (U)Ord ered By: Mike Feldman on 12-02-2024 Protein Ql (U) 15 mg/dl High Negative [facility] RBC Auto (Bld) [#/Vol]Ordere d By: Mike Feldman on 12-02-2024 RBC (Bld) [#/Vol] 4.62 10*6/uL 4.2-5.4 [facility] Serum creatinine measurement (mass/volume)Ordered By: Mike Feldman on 12-02-2024 Creatinine [Mass/Vol] 0.89 mg/dL 0.70-1.20 [facility] Serum glucose measurement (m ass/volume)Ordered By: Mike Feldman on 12-02-2024 Glucose [Mass/Vol] 199 mg/dL High 70-99 [facility] Serum human chorionic gonado tropin detection for pregnancyOrdered By: Mike Feldman on 12-02-2024 HCG ( test) Ql < 1 mIU/mL <9 [facility] Comment on above: Gestational Age0.2-1 Week: 5-50 mIU/mL1-2 Weeks: 50-500 mIU/mL2-3 Weeks: 100-5000 mIU/mL3-4 Weeks: 500-10,000 mIU/mL4-5 Weeks:1000-50,000 mIU/mL5-6 Weeks: 10,000-100,000 mIU/mL6-8 Weeks: 15,000-200,000 mIU/mL2-3 Months:10,000-100,000 mIU/mL Serum or plasma calcium lawrence urement (mass/volume)Ordered By: Mike Feldman on 12-02-2024 Calcium [Mass/Vol] 8.7 mg/dL 7.6-11.0 [facility] Serum or plasma urea nitroge n measurement (mass/volume)Ordered By: Mike Feldman on 12-02-2024 Urea nitrogen [Mass/Vol] 10 mg/dL 4-19 [facility] Sodium levelOrdered By: Mike Feldman on 12-02-2024 Sodium [Moles/Vol] 136 mmol/L 133-145 [facility] Squamous epithelial cells de tection in urine sediment by light microscopyOrdered By: Mike Feldman on 12-02-2024 Epithelial cells.squamous LM Ql (Urine sed) 0-5 SEEN /hpf 5-10 [facility] Urinalysis, Completeon 12-02 EPI,SQUAMOUS 0-5 SEEN Normal 5-10 [facility] Comment on above: Order Comment: CLEAN CATCH Performed By: #### L 400.0001 ####[facility] [address] [place], [address] RBC 0-5 SEEN Normal 0-5 [facility] Comment on above: Order Comment: CLEAN CATCH Performed By: #### L 400.0001 ####[facility] [address] [place], [place], [id number] WBC 0-5 SEEN Normal 0-5 [facility] Comment on above: Order Comment: CLEAN CATCH Performed By: #### L 400.0001 ####[facility] [address] [facility] [address] BACTERIA 0 SEEN Normal None Seen [facility] Comment on above: Order Comment: CLEAN CATCH Performed By: #### L 400.0001 ####[facility] [address] [facility] [id number] Mucus Ql (Urine sed) 0 SEEN Normal [facility] Comment on above: Order Comment: CLEAN CATCH Performed By: #### L 400.0001 ####[facility] [address] [place], [place], [id number] Urine clarityOrdered By: Ha Feldman on 12-02-2024 Clarity (U) Clear Clear [facility] Urine color determinationOrd ered By: Mike Feldman on 12-02-2024 Color (U) Straw Yellow [facility] Urine glucose detectionOrder ed By: Mike Feldman on 12-02-2024 Glucose Ql (U) Normal mg/dl Normal [facility] Urine leukocyte esterase det ection by dipstickOrdered By: Mike Feldman on 12-02-2024 Leukocyte esterase Test strip Ql (U) Negative Negative [facility] Urine pHOrdered By: Mike Feldman on 12-02-2024 pH (U) 6.0 [pH] 5.0 - 8.0 [facility] Urine sediment bacteria coun t by microscopy (number/high power field)Ordered By: Mike Feldman on 12-02-2024 Bacteria LM.HPF (Urine sed) [#/Area] 0 /[HPF] None Seen [facility] Urine specific gravity measu rementOrdered By: Mike Feldman on 12-02-2024 Specific gravity (U) [Rel density] 1.020 1.002-1.030 [facility] Urine urobilinogen measureme ntOrdered By: Mike Feldman on 12-02-2024 Urobilinogen Ql (U) Normal mg/dl Normal [facility] White blood cell (WBC) count Ordered By: Mike Feldman on 12-02-2024 WBC (Bld) [#/Vol] 14.3 10*3/uL High 4.4-11.0 [facility] White blood cell countOrdere d By: Mike Feldman on 12-02-2024 White blood cell count 0-5 SEEN /hpf 0-5 [facility] hCG Titer Quant., Serumon HCG QUANT. < 1 Normal <9 non-preg [facility] Comment on above: Result Comment: Gest ational Age 0.2-1 Week: 5-50 mIU/mL 1-2 Weeks: 50-500 mIU/mL 2-3 Weeks: 100-5000 mIU/mL 3-4 Weeks: 500-10,000 mIU/mL 4-5 Weeks:1000-50,000 mIU/mL 5-6 Weeks: 10,000-100,000 mIU/mL 6-8 Weeks: 15,000-200,000 mIU/mL 2-3 Months:10,000-100,000 mIU/mL Performed By: #### L 700.8000, L300.8000, L500.2500, L100.0100 #### [facility] [address] [place], [address] [facility] 11-17-2024 [facility] Telephone ([facility]) ----- KATIE FORDE ([id number]) 2000 F Date Time Provider Department 11/17/24 HAILEY JETT [facility] During your visit today, we recorded the following information about you: Eulalia Hobbs RN 11/17/2024 11:14 AM Signed Faxed mask/supplies order and last office visit notes to: [facility] Fax confirmation received electronically. Allergies As of Date: 11/17/2024 (No Known Allergies) Date Reviewed: 11/08/2024 Reviewed by: Sher Hollingsworth APRN.JAMB CUTTER - Fully Assessed Reason for Visit: PAP Rx Faxed [[id number]] Prescriptions as of 11/17/2024 - CPAP/BIPAP/OTHER Type [...] Status:Closed by EULALIA HOBBS on 11/17/24 Normal [facility] CNOVon 11-16-2024 CNOV Office Visit (NEURFH ) ----- KATIE FORDE ([id number]) 2000 F Date Time Provider Department 11/16/24 4:20 PM HAILEY JETT NEUR During your visit today, we recorded the following information about you: Hailey eJtt MD 11/16/2024 5:02 PM Signed [facility] Follow up/ Established patient visit TELEPHONE CALL: Converted from in person as pt had traffic issues and could not be seen in person. No visual communication - not face to face Recording using [employer] software for draft documentation of the visit was discussed with the patient/authorized manufacturers service representative; all questions welcomed and answered. Patient/authorized manufacturers service representative agreed to proceed Assessment/Plan from last visit: Date of last visit : Visit date not found 02/25/2023 I inc her pap settings at last visit but the settings did not stay CURRENT VISIT: 11/16/2024 INTERVAL HISTORY: SLEEP APNEA Sleep apnea type : ESTEBAN, Most Recent Apnea-Hypopnea Index (AHI): RDI 9.8, AHI 5.8 Treatment : PAP therapy DME: [employer] PAP History: Uses AutoPAP for 8 hours [...] due to drowsy drivin 09/04/2022 11/08/2022 02/24/2023 [place] Sleepiness Scale Score 9 (No clinically significant [...] due to drowsy drivin 09/04/2022 11/08/2022 02/24/2023 [place] Sleepiness Scale Score 9 (No clinically significant [...] 1-2 t (more content not included)... Normal [facility] CNOVon 11-08-2024 CNOV Office Visit (INTMWS ) ----- KATIE FORDE ([id number]) 2000 F Date Time Provider Department 11/08/24 11:20 AM [facility] During your visit today, we recorded the following information about you: Pulse Blood pressure Weight 101/minute 102/60 131.7 kg Sher Hollingsworth APRN.JAMB CUTTER 11/08/2024 12:43 PM Signed SUBJECTIVE Katie Forde [...] - 07/04 (more content not included)... Normal [facility] CNOVon 11-02-2024 CNOV Office Visit (INTMWS ) ----- KATIE FORDE ([id number]) 2000 F Date Time Provider Department 11/02/24 9:00 AM [facility] [place] [facility] During your visit today, we recorded the following information about you: Pulse Blood pressure Weight Last Period 93/minute 100/70 131.2 kg 10/26/24 Sher Hollingsworth APRN.JAMB CUTTER 11/02/2024 9:37 AM Signed SUBJECTIVE Katieluz Forde is a 23 year old female here today for an ER follow up. Chief Complaint Patient presents with: ER F/U: [facility] ER fatigue and having trouble sleep [...] to his father's terminal illness. Recording using [employer] software for draft documentation of the visit was discussed with the patient/authorized manufacturers service representative; all questions welcomed and answered. Patient/authorized manufacturers service representative agreed to proceed Her medications [...] (TESSALON JESI (more content not included)... Normal [facility] Basic Metabolic Profile (BMP )on 10-29-2024 BUN/CRE 10.9 RATIO Normal 10-20 [facility] Comment on above: Performed By: #### L 500.2500, L700.6800, L100.0100 ####[facility] [address] [place], [address] Calcium [Mass/Vol] 8.9 mg/dL Normal 7.6-11.0 [facility] Comment on above: Performed By: #### L 500.2500, L700.6800, L100.0100 ####[facility] [address] [place], [address] Chloride [Moles/Vol] 100 mmol/L Normal 98-108 [facility] Comment on above: Performed By: #### L 500.2500, L700.6800, L100.0100 ####[facility] [address] [place], [address] CO2 [Moles/Vol] 20.9 mmol/L Low 21.0-32.0 [facility] Comment on above: Performed By: #### L 500.2500, L700.6800, L100.0100 ####[facility] [address] [place], [address] Creatinine [Mass/Vol] 0.83 mg/dL Normal 0.70-1.20 [facility] Comment on above: Performed By: #### L 500.2500, L700.6800, L100.0100 ####[facility] [address] [place], [address] ECRCL 160.90 ml/min Normal 50-250 [facility] Comment on above: Performed By: #### L 500.2500, L700.6800, L100.0100 ####[facility] [address] [place], [address] GAP 15 Normal 5-15 [facility] Comment on above: Performed By: #### L 500.2500, L700.6800, L100.0100 ####[facility] [address] [place], [address] GFR/1.73 sq M.predicted among non-blacks MDRD (S/P/Bld) [Vol rate/Area] 100 mL/min/{1.73_m2} Normal >60 [facility] Comment on above: Result Comment: mL/m in/1.73m2 CKD-EPI Creatinine Equation (2020) Performed By: #### L 500.2500, L700.6800, L100.0100 ####[facility] [address] [place], [address] Glucose [Mass/Vol] 94 mg/dL Normal 70-99 [facility] Comment on above: Performed By: #### L 500.2500, L700.6800, L100.0100 ####[facility] [address] [place], [address] Potassium [Moles/Vol] 3.8 mmol/L Normal 3.3-5.1 [facility] Comment on above: Performed By: #### L 500.2500, L700.6800, L100.0100 ####[facility] [address] [place], [address] Sodium [Moles/Vol] 135 mmol/L Normal 133-145 [facility] Comment on above: Performed By: #### L 500.2500, L700.6800, L100.0100 ####[facility] [address] [place], [address] Urea nitrogen [Mass/Vol] 9 mg/dL Normal 4-19 [facility] Comment on above: Performed By: #### L 500.2500, L700.6800, L100.0100 ####[facility] [address] [place], [address] CBC W/Diff, Automatedon 05-0 Platelets (Bld) [#/Vol] 399 10*3/uL Normal 150-450 [facility] Comment on above: Performed By: #### L 500.2500, L700.6800, L100.0100 ####[facility] [address] [place], [address] ,Serum,hCG Quali.on 10-29-2024 HCG, SERUM QUAL Negative Normal [facility] Comment on above: Performed By: #### L 500.2500, L700.6800, L100.0100 ####[facility] [address] [place], [address] 12 Lead EKGon 10-28-2024 12 Lead EKG [facility] [address] [place] [address] 12 Lead EKG 10/28/24 2319 MR#: [id number] Acct: [id number] Name: KATIE FORDE Rep #: [id number] : 2000 From: Tom Corey MD Attending [...] Normal ECG Confirmed by CARMEN MEDRANO, TOM ([id number]), assistant film editor BRANDAN VAZQUEZ ([id number]) on 10/29/2024 8:21:54 AM Referred By: Julianna Hughes Confirmed By: TOM COREY MD 10/29/24 08 Date Tom Corey MD CC: Dr. Kate Silva MD; Dr. Julianna Hughes DO Signed Normal [facility] Absolute lymphocyte countOrd ered By: Julianna Hughes on 10-28-2024 Lymphocytes Auto (Unsp spec) [#/Vol] 2.85 10*3/uL 0.83-4.51 [facility] Absolute neutrophil countOrd ered By: Julianna Hughes on 10-28-2024 Neutrophils (Bld) [#/Vol] 16.7 10*3/uL High 2.0-7.7 [facility] Anion gap in Serum or Plasma Ordered By: Julianna Hughes on 10-28-2024 Anion gap [Moles/Vol] 15 mmol/L 5-15 [facility] Automated lymphocyte count a s percentage of total leukocytesOrdered By: Julianna Hughes on 10-28-2024 Lymphocytes/100 WBC Auto (Unsp spec) 13.7 % Low 19-41 [facility] BUN/creatinine ratioOrdered By: Julianna Hughes on 10-28-2024 Urea nitrogen/Creatinine [Mass ratio] 10.9 mg/mg 10-20 [facility] Basophil percentageOrdered B y: Julianna Ellen on 10-28-2024 Basophils/100 WBC (Bld) 0.5 % 0-1 [facility] CTA Chst, Abd, Pel W and/or WOon 10-28-2024 CTA Chst, Abd, Pel W and/or WO [facility] [address] [place] [address] CTA Chst, Abd, Pel W and/or WO MR#: [id number] Acct: [id number] Name: KATIE FORED Rep #: [id number] : 2000 From: Alban Oakes MD PCP: Dr. Kate Silva MD Status: REG ER Study: CTA Chst, Abd, Pel W and/or WO Date of Exam: 0 10/28/24 Exam# [id number] Ordering Dr: Julianna Hughes DO PROCEDURE: CTA [...] Kate Silva MD; Dr. Julianna Hughes DO Sheep Shearer: Signed Normal [facility] Carbon dioxide, total [Moles /volume] in Central venous bloodOrdered By: Julianna Hughes on 10-28-2024 CO2 [Moles/Vol] 20.9 mmol/L Low 21.0-32.0 [facility] Chloride assayOrdered By: Tracey Hughes on 10-28-2024 Chloride [Moles/Vol] 100 mmol/L 98-108 [facility] Emergency Department Summary on 10-28-2024 Emergency Department Summary [facility] Medical Records Department [address] [place] [address] Emergency Department Summary 10/28/24 MR#: [id number] Acct: [id number] Name: KATIE FORDE Rep #: [id number] : 2000 23 From: Julianna Hughes DO [...] and [employer] (more content not included)... Normal [facility] Eosinophil percentageOrdered By: Julianna Hughes on 10-28-2024 Eosinophils/100 WBC (Bld) 0.2 % 0-5 [facility] Erythrocyte distribution wid th ratioOrdered By: Julianna Hughes on 10-28-2024 Erythrocyte distribution width (RBC) [Ratio] 12.1 % 11.6-14.6 [facility] Erythrocyte distribution wid th standard deviationOrdered By: Julianna Hughes on 10-28-2024 Erythrocyte distribution width (RBC) [Ratio] 38.9 fl 35.1-43.9 [facility] Glomerular filtration rate ( GFR) estimation/1.73 sq m using serum, plasma, or whole bOrdered By: Julianna Hughes on 10-28-2024 GFR/1.73 sq M.predicted among non-blacks MDRD (S/P/Bld) [Vol rate/Area] 100 mL/min/{1.73_m2} >60 [facility] Comment on above: mL/min/1.73m2 CKD-EP I Creatinine Equation (2020) Hematocrit Auto (Bld) [Volum e fraction]Ordered By: Julianna Hughes on 10-28-2024 Hematocrit (Bld) [Volume fraction] 41.2 % 37-47 [facility] Hemoglobin measurementOrdere d By: Julianna Hughes on 10-28-2024 Hemoglobin (Bld) [Mass/Vol] 14.5 g/dL 12.0-15.0 [facility] Immature granulocytes/100 WB C Auto (Bld)Ordered By: Julianna Hughes on 10-28-2024 Immature granulocytes/100 WBC (Bld) 0.500 % 0.0-0.9 [facility] Comment on above: IG% - Immature Granu locytes (promyelocytes, myelocytes and metamyelocytes) > 1% indicates that a LEFT SHIFT is Present. MCV (mean corpuscular volume ) determinationOrdered By: Julianna Hughes on 10-28-2024 MCV (RBC) [Entitic vol] 87.7 fL 81-99 [facility] Mean corpuscular hemoglobin (MCH) determinationOrdered By: Julianna Hughes on 10-28-2024 MCH (RBC) [Entitic mass] 30.9 pg 27.0-32.0 [facility] Mean corpuscular hemoglobin concentration (MCHC) determinationOrdered By: Julianna Hughes on 10-28-2024 MCHC (RBC) [Mass/Vol] 35.2 g/dL 32-36 [facility] Mean platelet volume determi nationOrdered By: Julianna Hughes on 10-28-2024 Platelet mean volume (Bld) [Entitic vol] 10.9 fL 6.2-12.0 [facility] Monocyte percentageOrdered B y: Julianna Hughes on 10-28-2024 Monocytes/100 WBC (Bld) 4.8 % 0-10 [facility] Neutrophil percentageOrdered By: Julianna Hughes on 10-28-2024 Neutrophils/100 WBC (Bld) 80.3 % High 47-70 [facility] Nucleated red blood cell per centageOrdered By: Julianna Hughes on 10-28-2024 Nucleated RBC/100 WBC (Bld) [Ratio] 0 % 0-5 [facility] Platelet countOrdered By: Tracey Hughes on 10-28-2024 Platelets (Bld) [#/Vol] 399 10*3/uL 150-450 [facility] Potassium measurement (mass/ volume)Ordered By: Julianna Hughes on 10-28-2024 Potassium (Unsp spec) [Mass/Vol] 3.8 mmol/L 3.3-5.1 [facility] RBC Auto (Bld) [#/Vol]Ordere d By: Julianna Hughes on 10-28-2024 RBC (Bld) [#/Vol] 4.70 10*6/uL 4.2-5.4 [facility] Serum beta-hCG test, qualita tiveOrdered By: Julianna Hughes on 10-28-2024 Beta HCG ( test) Ql Negative [facility] Serum creatinine measurement (mass/volume)Ordered By: Julianna Hughes on 10-28-2024 Creatinine [Mass/Vol] 0.83 mg/dL 0.70-1.20 [facility] Serum glucose measurement (m ass/volume)Ordered By: Julianna Hughes on 10-28-2024 Glucose [Mass/Vol] 94 mg/dL 70-99 [facility] Serum or plasma calcium lawrence urement (mass/volume)Ordered By: Julianna Hughes on 10-28-2024 Calcium [Mass/Vol] 8.9 mg/dL 7.6-11.0 [facility] Serum or plasma urea nitroge n measurement (mass/volume)Ordered By: Julianna Hughes on 10-28-2024 Urea nitrogen [Mass/Vol] 9 mg/dL 4-19 [facility] Sodium levelOrdered By: Christina Hughes on 10-28-2024 Sodium [Moles/Vol] 135 mmol/L 133-145 [facility] White blood cell (WBC) count Ordered By: Julianna Hughes on 10-28-2024 WBC (Bld) [#/Vol] 20.8 10*3/uL High 4.4-11.0 [facility] CARY BY IFA WITH REFLEXon Nuclear Ab Ql (S) Negative Normal Negative [facility] Comment on above: Order Comment: Speci men Type: BLOOD SPECIMENOrdering Facility: [facility] Address: [address] [place] [address] Result Comment: Anti -nuclear antibody test is used as an aid in diagnosis of systemic autoimmune diseases. Where positive and clinically warranted, follow-up using disease-specific testing is recommended. Low positive titers are not uncommon with advanced age, certain chronic infections, and malignancies among others. Test methodology: Indirect fluorescence immunoassay (IFA) using HEp-2 cells. Performed By: #### A NAIFR ####[facility] LABCLIA [id number] [place] [address] [place] CBC W Auto Differential pane l (Bld)on 10-26-2024 Basophils (Bld) [#/Vol] 0.13 10*3/uL High <0.11 [facility] Comment on above: Order Comment: Speci men Type: BLOOD SPECIMENOrdering Facility: [facility] Address: [address] [place] [address] Performed By: #### 5 7021-8, 4537-7 ####[facility] LABCLIA [id number] [place] [address] [place] Basophils/100 WBC (Bld) 0.9 % Normal [facility] Comment on above: Order Comment: Speci men Type: BLOOD SPECIMENOrdering Facility: [facility] Address: [address] [place] [address] Performed By: #### 5 7021-8, 4537-7 ####[facility] LABIA [id number] [place] [address] [place] Differential cell count method Nom (Bld) Auto Normal [facility] Comment on above: Order Comment: Speci men Type: BLOOD SPECIMENOrdering Facility: [facility] Address: [address] [place] [address] Performed By: #### 5 7021-8, 7-7 ####[facility] LABCLIA [id number] [place] [address] [place] Eosinophils (Bld) [#/Vol] 0.10 10*3/uL Normal <0.46 [facility] Comment on above: Order Comment: Speci men Type: BLOOD SPECIMENOrdering Facility: [facility] Address: [address] [place] [address] Performed By: #### 5 7021-8, 4536-7 ####[facility] LABCLIA [id number] [place] [address] [place] Eosinophils/100 WBC (Bld) 0.7 % Normal [facility] Comment on above: Order Comment: Speci men Type: BLOOD SPECIMENOrdering Facility: [facility] Address: [address] [place] [address] Performed By: #### 5 7021-8, 4536-7 ####[facility] LABCLIA [id number] [place] [address] [place] Erythrocyte distribution width (RBC) [Ratio] 12.4 % Normal 11.5-15.0 [facility] Comment on above: Order Comment: Speci men Type: BLOOD SPECIMENOrdering Facility: [facility] Address: [address] [place] [address] Performed By: #### 5 7021-8, 4536-7 ####[facility] LABCLIA [id number] [place] [address] [place] Hematocrit (Bld) [Volume fraction] 41.7 % Normal 36.0-46.0 [facility] Comment on above: Order Comment: Speci men Type: BLOOD SPECIMENOrdering Facility: [facility] Address: [address] [place] [address] Performed By: #### 5 7021-8, 7-7 ####[facility] LABCLIA [id number] [place] [address] [place] Hemoglobin (Bld) [Mass/Vol] 14.2 g/dL Normal 11.5-15.5 [facility] Comment on above: Order Comment: Speci men Type: BLOOD SPECIMENOrdering Facility: [facility] Address: [address] [place] [address] Performed By: #### 5 7021-8, 4537-7 ####[facility] LABCLIA [id number] [place] [address] [place] Immature granulocytes (Bld) [#/Vol] 0.04 10*3/uL Normal <0.10 [facility] Comment on above: Order Comment: Speci men Type: BLOOD SPECIMENOrdering Facility: [facility] Address: [address] [place] [address] Performed By: #### 5 7021-8, 4537-7 ####[facility] LABCLIA [id number] [place] [address] [place] Immature granulocytes/100 WBC (Bld) 0.3 % Normal [facility] Comment on above: Order Comment: Speci men Type: BLOOD SPECIMENOrdering Facility: [facility] Address: [address] [place] [address] Performed By: #### 5 7021-8, 4537-7 ####[facility] LABCLIA [id number] [place] [address] [place] Lymphocytes (Bld) [#/Vol] 3.39 10*3/uL Normal 1.00-4.00 [facility] Comment on above: Order Comment: Speci men Type: BLOOD SPECIMENOrdering Facility: [facility] Address: [address] [place] [address] Performed By: #### 5 7021-8, 4537-7 ####[facility] LABCLIA [id number] [place] [address] [place] Lymphocytes/100 WBC (Bld) 23.4 % Normal [facility] Comment on above: Order Comment: Speci men Type: BLOOD SPECIMENOrdering Facility: [facility] Address: [address] [place] [address] Performed By: #### 5 7021-8, 4537-7 ####[facility] LABCLIA [id number] [place] [address] [place] MCH (RBC) [Entitic mass] 30.4 pg Normal 26.0-34.0 [facility] Comment on above: Order Comment: Speci men Type: BLOOD SPECIMENOrdering Facility: [facility] Address: [address] [place] [address] Performed By: #### 5 7021-8, 453-7 ####[facility] LABCLIA [id number] [place] [address] [place] MCHC (RBC) [Mass/Vol] 34.1 g/dL Normal 30.5-36.0 [facility] Comment on above: Order Comment: Speci men Type: BLOOD SPECIMENOrdering Facility: [facility] Address: [address] [place] [address] Performed By: #### 5 7021-8, 4537-7 ####[facility] LABCLIA [id number] [place] [address] [place] MCV (RBC) [Entitic vol] 89.3 fL Normal 80.0-100.0 [facility] Comment on above: Order Comment: Speci men Type: BLOOD SPECIMENOrdering Facility: [facility] Address: [address] [place] [address] Performed By: #### 5 7021-8, 4536-7 ####[facility] LABCLIA [id number] [place] [address] [place] Monocytes (Bld) [#/Vol] 0.94 10*3/uL High <0.87 [facility] Comment on above: Order Comment: Speci men Type: BLOOD SPECIMENOrdering Facility: [facility] Address: [address] [place] [address] Performed By: #### 5 7021-8, 4536-7 ####[facility] LABCLIA [id number] [address] [place] [address] [place] Monocytes/100 WBC (Bld) 6.5 % Normal [facility] Comment on above: Order Comment: Speci men Type: BLOOD SPECIMENOrdering Facility: [facility] Address: [address] [place] [address] Performed By: #### 5 7021-8, 4536-7 ####[facility] LABCLIA [id number] [address], [place] [address] [place] Neutrophils (Bld) [#/Vol] 9.90 10*3/uL High 1.45-7.50 [facility] Comment on above: Order Comment: Speci men Type: BLOOD SPECIMENOrdering Facility: [facility] Address: [address] [place] [address] Performed By: #### 5 7021-8, 7 ####[facility] LABCLIA [id number] [address], [place] [address] [place] Neutrophils/100 WBC (Bld) 68.2 % Normal [facility] Comment on above: Order Comment: Speci men Type: BLOOD SPECIMENOrdering Facility: [facility] Address: [address] [place] [address] Performed By: #### 5 7021-8, 4536-7 ####[facility] LABCLIA [id number] [place] [address] [place] Nucleated RBC (Bld) [#/Vol] 10*3/uL Normal <0.01 [facility] Comment on above: Order Comment: Speci men Type: BLOOD SPECIMENOrdering Facility: [facility] Address: [address] [place] [address] Performed By: #### 5 7021-8, 4536-7 ####[facility] LABCLIA [id number] [place] [address] [place] Nucleated RBC/100 WBC (Bld) [Ratio] 0.0 /100 WBC Normal [facility] Comment on above: Order Comment: Speci men Type: BLOOD SPECIMENOrdering Facility: [facility] Address: [address] [place] [address] Performed By: #### 5 7021-8, 4536-7 ####[facility] LABCLIA [id number] [place] [address] [place] Platelet mean volume (Bld) [Entitic vol] 10.1 fL Normal 9.0-12.7 [facility] Comment on above: Order Comment: Speci men Type: BLOOD SPECIMENOrdering Facility: [facility] Address: [address] [place] [address] Performed By: #### 5 7021-8, 7 ####[facility] LABCLIA [id number] [place] [address] [place] Platelets (Bld) [#/Vol] 515 10*3/uL High 150-400 [facility] Comment on above: Order Comment: Speci men Type: BLOOD SPECIMENOrdering Facility: [facility] Address: [address] [place] [address] Performed By: #### 5 7021-8, 7 ####[facility] LABIA [id number] [place] [id number] [place] RBC (Bld) [#/Vol] 4.67 10*6/uL Normal 3.90-5.20 [facility] Comment on above: Order Comment: Speci men Type: BLOOD SPECIMENOrdering Facility: [facility] Address: [address] [place] [address] Performed By: #### 5 7021-8, 4536-7 ####[facility] LABCLIA [id number] [facility]Scott [facility] [place] [address] [place] WBC (Bld) [#/Vol] 14.50 10*3/uL High 3.70-11.00 [facility] Comment on above: Order Comment: Speci men Type: BLOOD SPECIMENOrdering Facility: [facility] Address: [address] [place] [address] Performed By: #### 5 7021-8, 4537-7 ####[facility] LABCLIA [id number] [facility]Scott [facility]ERK [address] [place] CNOVon 10-26-2024 CNOV Office Visit (INTMWS ) ----- KATIE FORDE ([id number]) 2000 F Date Time Provider Department 10/26/24 2:00 PM SHER HOLLINGSWROTH INTMWS During your visit today, we recorded the following information about you: Pulse Respiration Blood pressure Weight 96/minute 16/minute 116/70 133.1 kg Sher Hollingsworth APRN.JAMB CUTTER 10/26/2024 2:37 PM Signed SUBJECTIVE Katieluz Forde [...] drained by her current situation. Recording using [employer] software for draft documentation of the visit was discussed with the patient/authorized manufacturers service representative; all questions welcomed and answered. Patient/authorized manufacturers service representative agreed to proceed Her medications [...] day. dul (more content not included)... Normal [facility] ESR Westergren method (Bld) [Velocity]on 10-26-2024 ESR (Bld) [Velocity] 29 mm/h High 0-[facility] Comment on above: Order Comment: Speci men Type: BLOOD SPECIMENOrdering Facility: [facility] Address: [address] [place] [address] Performed By: #### 5 7021-8, 4537-7 ####[facility] LABCLIA [id number] [place] [address] [place] T3Free SerPl-mCncon 10-27-19 25 Free T3 [Mass/Vol] 3.4 pg/mL Normal 2.3-4.1 [facility] Comment on above: Order Comment: Lore buitrago Type: BLOOD SPECIMENOrdering Facility: [facility] Address: [address] [place] [address] Performed By: #### 2 132-9, 3051-0, 3024-7, 3016-3 ####[facility] LABIA [id number] [place] [address] [place] T4 Free SerPl-mCncon 025 Free T4 [Mass/Vol] 1.0 ng/dL Normal 0.9-1.7 [facility] Comment on above: Order Comment: Lore buitrago Type: BLOOD SPECIMENOrdering Facility: [facility] Address: [address] [place] [address] Performed By: #### 2 132-9, 3051-0, 3024-7, 3016-3 ####[facility] LABIA [id number] [place] [address] [place] TSH SerPl-aCncon 10-26-2024 TSH Qn 0.844 m[IU]/L Normal 0.270-4.200 [facility] Comment on above: Order Comment: Lore buitrago Type: BLOOD SPECIMENOrdering Facility: [facility] Address: [address] [place] [address] Result Comment: If t he patient is , TSH reference range varies by gestational period: First Trimester (weeks 9-12): 0.180-2.990 mIU/L Second Trimester: 0.110-3.980 mIU/L Third Trimester: 0.480-4.710 mIU/L Rolando Cheatham et al. A Practical Approach for the Verifications and Determination of Site- and Trimester-Specific Reference Intervals for Thyroid Function tests in . Thyroid, 2019:29:3:412-420. Wiliam Escobar et al. 2017 Guidelines of the [place] Thyroid Association for the Diagnosis and Management of Thyroid Disease during and the . Thyroid, 2017:27:3:315-389. Performed By: #### 2 132-9, 3051-0, 3024-7, 3016-3 ####[facility] LABIA [id number] [address] [address] [place] VITAMIN B1 (THIAMINE), WHOLE BLOODon 10-26-2024 Thiamine (Bld) [Moles/Vol] 191.8 nmol/L Normal 84.3-213.3 [facility] Comment on above: Order Comment: Speci men Type: BLOOD SPECIMENOrdering Facility: [facility] Address: [address] [place] [address] Result Comment: This assay measures the concentration of thiamine diphosphate (TDP), the primary active form of vitamin B1. Approximately 90 percent of vitamin B1 present in whole blood is TDP. Thiamine and thiamine monophosphate, which comprise the remaining 10 percent, are not measured. This test was developed, and its performance characteristics determined by the [facility] Department of Pathology and Laboratory Medicine. It has not been cleared or approved by the FDA. The [facility] Department of Pathology and Laboratory Medicine is regulated under CLIA as qualified to perform high-complexity testing. This test is used for clinical purposes. It should not be regarded as investigational or for research. Performed By: #### B 1WB ####[facility] LABIA [id number] [address] [address] [place] VITAMIN B6/PYRIDOXINon 10-26 VITAMIN B6 34.4 nmol/L Normal 20.0-125.0 [facility] Comment on above: Order Comment: Speci men Type: BLOOD SPECIMENOrdering Facility: [facility] Address: [address] [place] [address] Result Comment: INTE RPRETIVE INFORMATION: Vitamin B6 (Pyridoxal 5-Phosphate) Pyridoxal 5'-phosphate measured in a specimen collected following an 8-hour or overnight fast accurately indicates vitamin B6 nutritional status. Non-fasting specimen concentration reflects recent vitamin intake. This test was developed and its performance characteristics determined by [facility]. It has not been cleared or approved by the [place] Food and Drug Administration. This test was performed in a CLIA certified laboratory and is intended for clinical purposes. Performed By: [facility] [address] [place] [address] Heel Cover Softener: Yared Curry MD, PhD CLIA Number: [id number] Performed By: #### V ITB6 ####[facility] LABORATORIESCLIA [id number] [place] [address] Vit B12 [facility] 025 Cobalamin (Vitamin B12) [Mass/Vol] 467 pg/mL Normal 232-1245 [facility] Comment on above: Order Comment: Speci men Type: BLOOD SPECIMENOrdering Facility: [facility] Address: [address] [place] [address] Performed By: #### 2 132-9, 3051-0, 3024-7, 3016-3 ####[facility] LABCLIA [id number] [address] STATES OF [facility] 12 Lead EKGon 10-25-2024 12 Lead EKG [facility] [address] [place] [address] 12 Lead EKG 10/25/24 0052 MR#: [id number] Acct: [id number] Name: KATIE FORDE Rep #: [id number] : 2000 23 From: Yuly Aquino MD [...] ECG Confirmed by MILES MEDRANO, NIMCO ([id number]), assistant film editor BRANDAN VAZQUEZ ([id number]) on 10/27/2024 11:57:31 AM Referred By: Confirmed By: NIMCO AQUINO MD 10/27/24 1157 Date Yuly Aquino MD CC: Dr. Pérez Ren MD; Dr. Kate Silva MD Signed Normal [facility] Absolute lymphocyte countOrd ered By: Pérez Ren on 10-25-2024 Lymphocytes Auto (Unsp spec) [#/Vol] 4.49 10*3/uL 0.83-4.51 [facility] Absolute neutrophil countOrd ered By: Pérez Ren on 10-25-2024 Neutrophils (Bld) [#/Vol] 9.8 10*3/uL High 2.0-7.7 [facility] Anion gap in Serum or Plasma Ordered By: Pérez Ren on 10-25-2024 Anion gap [Moles/Vol] 13 mmol/L 5-15 [facility] Automated lymphocyte count a s percentage of total leukocytesOrdered By: Pérez Ren on 10-25-2024 Lymphocytes/100 WBC Auto (Unsp spec) 28.5 % 19-41 [facility] BUN/creatinine ratioOrdered By: Pérez Ren on 10-25-2024 Urea nitrogen/Creatinine [Mass ratio] 11.6 mg/mg 10-20 [facility] Basophil percentageOrdered B y: Pérez Ren on 10-25-2024 Basophils/100 WBC (Bld) 0.6 % 0-1 [facility] Beta HCG ( test) Ql Ordered By: Pérez Ren on 10-25-2024 Serum Test, Qualitative Negative [facility] Bilirubin, totalOrdered By: Pérez Ren on 10-25-2024 Bilirubin [Mass/Vol] 0.26 mg/dL 0.00-1.30 [facility] CBC W/Diff, Automatedon 09-29 Absolute Lymph 4.49 X10 3/uL Normal 0.83-4.51 [facility] Comment on above: Performed By: #### L 500.4050, L700.6800, L100.0100, L501.5200 ####[facility] [address] [place], [address] Absolute Neut 9.8 X10 3/uL High 2.0-7.7 [facility] Comment on above: Performed By: #### L 500.4050, L700.6800, L100.0100, L501.5200 ####[facility] [address] [place], [address] Basophils/100 WBC (Bld) 0.6 % Normal 0-1 [facility] Comment on above: Performed By: #### L 500.4050, L700.6800, L100.0100, L501.5200 ####[facility] [address] [place], [address] Eosinophils/100 WBC (Bld) 1.0 % Normal 0-5 [facility] Comment on above: Performed By: #### L 500.4050, L700.6800, L100.0100, L501.5200 ####[facility] [address] [place], [address] Erythrocyte distribution width (RBC) [Ratio] 12.5 % Normal 11.6-14.6 [facility] Comment on above: Performed By: #### L 500.4050, L700.6800, L100.0100, L501.5200 ####[facility] [address] [place], [address] Hematocrit (Bld) [Volume fraction] 43.9 % Normal 37-47 [facility] Comment on above: Performed By: #### L 500.4050, L700.6800, L100.0100, L501.5200 ####[facility] [address] [place], [address] Hemoglobin (Bld) [Mass/Vol] 15.3 g/dL High 12.0-15.0 [facility] Comment on above: Performed By: #### L 500.4050, L700.6800, L100.0100, L501.5200 ####[facility] [address] [place], [address] IG% 0.400 Normal 0.0-0.9 [facility] Comment on above: Result Comment: IG% - Immature Granulocytes (promyelocytes, myelocytes and metamyelocytes) > 1% indicates that a LEFT SHIFT is Present. Performed By: #### L 500.4050, L700.6800, L100.0100, L501.5200 ####[facility] [address] [place], [address] Lymphocytes/100 WBC (Bld) 28.5 % Normal 19-41 [facility] Comment on above: Performed By: #### L 500.4050, L700.6800, L100.0100, L501.5200 ####[facility] [address] [place], [address] MCH (RBC) [Entitic mass] 30.6 pg Normal 27.0-32.0 [facility] Comment on above: Performed By: #### L 500.4050, L700.6800, L100.0100, L501.5200 ####[facility] [address] [place], [address] MCHC (RBC) [Mass/Vol] 34.9 g/dL Normal 32-36 [facility] Comment on above: Performed By: #### L 500.4050, L700.6800, L100.0100, L501.5200 ####[facility] [address] [place], [address] MCV (RBC) [Entitic vol] 87.8 fL Normal 81-99 [facility] Comment on above: Performed By: #### L 500.4050, L700.6800, L100.0100, L501.5200 ####[facility] [address] [place], [address] Monocytes/100 WBC (Bld) 7.2 % Normal 0-10 [facility] Comment on above: Performed By: #### L 500.4050, L700.6800, L100.0100, L501.5200 ####[facility] [address] [place], [address] Neutrophils/100 WBC (Bld) 62.3 % Normal 47-70 [facility] Comment on above: Performed By: #### L 500.4050, L700.6800, L100.0100, L501.5200 ####[facility] [address] [place], [address] Nucleated RBC (Bld) [#/Vol] 0 10*3/uL Normal 0-5 [facility] Comment on above: Performed By: #### L 500.4050, L700.6800, L100.0100, L501.5200 ####[facility] [address] [place], [address] Platelet mean volume (Bld) [Entitic vol] 9.7 fL Normal 6.2-12.0 [facility] Comment on above: Performed By: #### L 500.4050, L700.6800, L100.0100, L501.5200 ####[facility] [address] [place], [address] Platelets (Bld) [#/Vol] 503 10*3/uL High 150-450 [facility] Comment on above: Performed By: #### L 500.4050, L700.6800, L100.0100, L501.5200 ####[facility] [address] [place], [address] RBC (Bld) [#/Vol] 5.00 10*6/uL Normal 4.2-5.4 [facility] Comment on above: Performed By: #### L 500.4050, L700.6800, L100.0100, L501.5200 ####[facility] [address] [place], [address] RDW SD 40.1 fl Normal 35.1-43.9 [facility] Comment on above: Performed By: #### L 500.4050, L700.6800, L100.0100, L501.5200 ####[facility] [address] [place], [address] WBC (Bld) [#/Vol] 15.8 10*3/uL High 4.4-11.0 [facility] Comment on above: Performed By: #### L 500.4050, L700.6800, L100.0100, L501.5200 ####[facility] [address] [place], [address] Carbon dioxide, total [Moles /volume] in Central venous bloodOrdered By: Pérez Ren on 10-25-2024 CO2 [Moles/Vol] 20.5 mmol/L Low 21.0-32.0 [facility] Chest 1 View (Portable)on Chest 1 View (Portable) [facility] [address] [place] [address] Chest 1 View (Portable) MR#: [id number] Acct: [id number] Name: KATIE FORDE Rep #: [id number] : 2000 F 23 From: Alban Oakes MD PCP: Dr. Kate Silva MD Status: [facility] ER Study: Chest 1 View (Portable) Date of Exam: 10/25/24 Exam# [id number] Ordering Dr: Pérez Ren MD PROCEDURE: CHEST [...] No evidence of acute disease. Reading Location: [id number] CC: Dr. Pérez Ren MD; Dr. 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, [address] Albumin/Globulin [Mass ratio] 1.1 {ratio} Normal 0.9-2.4 [facility] Comment on above: Performed By: #### L 500.4050, L700.6800, L100.0100, L501.5200 ####[facility] [address] [place], [address] ALK PHOS 80 U/L Normal 35-104 [facility] Comment on above: Performed By: #### L 500.4050, L700.6800, L100.0100, L501.5200 ####[facility] [address] [place], [address] ALT [Catalytic activity/Vol] 44 U/L High <=34 [facility] Comment on above: Performed By: #### L 500.4050, L700.6800, L100.0100, L501.5200 ####[facility] [address] [place], [address] AST [Catalytic activity/Vol] 36 U/L High <=31 [facility] Comment on above: Performed By: #### L 500.4050, L700.6800, L100.0100, L501.5200 ####[facility] [address] [place], [address] Bilirubin [Mass/Vol] 0.26 mg/dL Normal 0.00-1.30 [facility] Comment on above: Performed By: #### L 500.4050, L700.6800, L100.0100, L501.5200 ####[facility] [address] [place], [address] BUN/CRE 11.6 RATIO Normal 10-20 [facility] Comment on above: Performed By: #### L 500.4050, L700.6800, L100.0100, L501.5200 ####[facility] [address] [place], [address] Calcium [Mass/Vol] 8.7 mg/dL Normal 7.6-11.0 [facility] Comment on above: Performed By: #### L 500.4050, L700.6800, L100.0100, L501.5200 ####[facility] [address] [place], [address] Chloride [Moles/Vol] 103 mmol/L Normal 98-108 [facility] Comment on above: Performed By: #### L 500.4050, L700.6800, L100.0100, L501.5200 ####[facility] [address] [place], [address] CO2 [Moles/Vol] 20.5 mmol/L Low 21.0-32.0 [facility] Comment on above: Performed By: #### L 500.4050, L700.6800, L100.0100, L501.5200 ####[facility] [address] [place], [address] Creatinine [Mass/Vol] 0.77 mg/dL Normal 0.70-1.20 [facility] Comment on above: Performed By: #### L 500.4050, L700.6800, L100.0100, L501.5200 ####[facility] [address] [place], [address] ECRCL 174.27 ml/min Normal 50-250 [facility] Comment on above: Performed By: #### L 500.4050, L700.6800, L100.0100, L501.5200 ####[facility] [address] [place], [address] GAP 13 Normal 5-15 [facility] Comment on above: Performed By: #### L 500.4050, L700.6800, L100.0100, L501.5200 ####[facility] [address] [place], [address] GFR/1.73 sq M.predicted among non-blacks MDRD (S/P/Bld) [Vol rate/Area] 109 mL/min/{1.73_m2} Normal >60 [facility] Comment on above: Result Comment: mL/m in/1.73m2 CKD-EPI Creatinine Equation (2020) Performed By: #### L 500.4050, L700.6800, L100.0100, L501.5200 ####[facility] [address] [place], [address] Globulin (S) [Mass/Vol] 3.8 g/dL Normal 2.2-4.2 [facility] Comment on above: Performed By: #### L 500.4050, L700.6800, L100.0100, L501.5200 ####[facility] [address] [place], [address] Glucose [Mass/Vol] 105 mg/dL High 70-99 [facility] Comment on above: Performed By: #### L 500.4050, L700.6800, L100.0100, L501.5200 ####[facility] [address] [place], [address] Potassium [Moles/Vol] 3.5 mmol/L Normal 3.3-5.1 [facility] Comment on above: Performed By: #### L 500.4050, L700.6800, L100.0100, L501.5200 ####[facility] [address] [place], [address] Sodium [Moles/Vol] 137 mmol/L Normal 133-145 [facility] Comment on above: Performed By: #### L 500.4050, L700.6800, L100.0100, L501.5200 ####[facility] [address] [place], [address] T PROT 8.0 g/dL Normal 5.9-8.4 [facility] Comment on above: Performed By: #### L 500.4050, L700.6800, L100.0100, L501.5200 ####[facility] [address] [place], [address] Urea nitrogen [Mass/Vol] 9 mg/dL Normal 4-19 [facility] Comment on above: Performed By: #### L 500.4050, L700.6800, L100.0100, L501.5200 ####[facility] [address] [place], [address] Emergency Department Summary on 10-25-2024 Emergency Department Summary [facility] Medical Records Department [address] [place] [address] Emergency Department Summary 10/25/24 MR#: [id number] Acct: [id number] Name: KATIE FORDE Rep #: [id number] : 2000 From: Pérez Ren MD PCP: [...] shortness of breath and lightheadedness as well. [facility] Medical History Depersonalization disorder Fatty liver [...] tachycardia v (more content not included)... Normal [facility] Eosinophil percentageOrdered By: Pérez Ren on 10-25-2024 Eosinophils/100 WBC (Bld) 1.0 % 0-5 [facility] Erythrocyte distribution wid th (RBC) [Ratio]Ordered By: Pérez Ren on 10-25-2024 Erythrocyte distribution width (RBC) [Entitic vol] 40.1 fL 35.1-43.9 [facility] Erythrocyte distribution wid th ratioOrdered By: Pérez Ren on 10-25-2024 Erythrocyte distribution width (RBC) [Ratio] 12.5 % 11.6-14.6 [facility] Erythrocyte distribution wid th standard deviationOrdered By: Pérez Ren on 10-25-2024 Erythrocyte distribution width (RBC) [Ratio] 40.1 fl 35.1-43.9 [facility] Estimation of creatinine nicole aranceOrdered By: Pérez Ren on 10-25-2024 Estimated Creatinine Clearance Calc 174.27 ml/min 50-250 [facility] GFR/1.73 sq M.predicted tiesha g non-blacks MDRD (S/P/Bld) [Vol rate/Area]Ordered By: Pérez Ren on 10-25-2024 Estimated GFR (MDRD) Non-Af Amer 109 >60 [facility] Comment on above: mL/min/1.73m2 CKD-EP I Creatinine Equation (2020) Glomerular filtration rate ( GFR) estimation/1.73 sq m using serum, plasma, or whole bOrdered By: Pérez Ren on 10-25-2024 GFR/1.73 sq M.predicted among non-blacks MDRD (S/P/Bld) [Vol rate/Area] 109 mL/min/{1.73_m2} >60 [facility] Comment on above: mL/min/1.73m2 CKD-EP I Creatinine Equation (2020) Hematocrit Auto (Bld) [Volum e fraction]Ordered By: Pérez Ren on 10-25-2024 Hematocrit (Bld) [Volume fraction] 43.9 % 37-47 [facility] Hemoglobin measurementOrdere d By: Pérez Ren on 10-25-2024 Hemoglobin (Bld) [Mass/Vol] 15.3 g/dL High 12.0-15.0 [facility] Immature granulocytes/100 WB C Auto (Bld)Ordered By: Pérez Ren on 10-25-2024 Immature granulocytes/100 WBC (Bld) 0.400 % 0.0-0.9 [facility] Comment on above: IG% - Immature Granu locytes (promyelocytes, myelocytes and metamyelocytes) > 1% indicates that a LEFT SHIFT is Present. Laboratory - Chemistry and C hemistry - challengeOrdered By: Pérez Ren on 10-25-2024 AST [Catalytic activity/Vol] 36 U/L High <32 [facility] Lymphocytes Auto (Unsp spec) [#/Vol]Ordered By: Pérez Ren on 10-25-2024 Lymphocytes (Bld) [#/Vol] 4.49 10*3/uL 0.83-4.51 [facility] Lymphocytes/100 WBC Auto (Un sp spec)Ordered By: Pérez Ren on 10-25-2024 Lymphocytes/100 WBC (Bld) 28.5 % 19-41 [facility] MCV (mean corpuscular volume ) determinationOrdered By: Pérez Ren on 10-25-2024 MCV (RBC) [Entitic vol] 87.8 fL 81-99 [facility] Magnesiumon 10-25-2024 Magnesium [Mass/Vol] 2.3 mg/dL High 1.5-2.2 [facility] Comment on above: Performed By: #### L 500.4050, L700.6800, L100.0100, L501.5200 ####[facility] [address] [place], [place], [address] Magnesium (Unsp spec) [Mass/ Vol]Ordered By: Pérez Ren on 10-25-2024 Magnesium [Mass/Vol] 2.3 mg/dL High 1.5-2.2 [facility] Magnesium measurement (mass/ volume)Ordered By: Pérez Ren on 10-25-2024 Magnesium (Unsp spec) [Mass/Vol] 2.3 mg/dL High 1.5-2.2 [facility] Mean corpuscular hemoglobin (MCH) determinationOrdered By: Pérez Ren on 10-25-2024 MCH (RBC) [Entitic mass] 30.6 pg 27.0-32.0 [facility] Mean corpuscular hemoglobin concentration (MCHC) determinationOrdered By: Pérez Ren on 10-25-2024 MCHC (RBC) [Mass/Vol] 34.9 g/dL 32-36 [facility] Mean platelet volume determi nationOrdered By: Pérez Ren on 10-25-2024 Platelet mean volume (Bld) [Entitic vol] 9.7 fL 6.2-12.0 [facility] Monocyte percentageOrdered B y: Pérez Ren on 10-25-2024 Monocytes/100 WBC (Bld) 7.2 % 0-10 [facility] Neutrophil percentageOrdered By: Pérez Ren on 10-25-2024 Neutrophils/100 WBC (Bld) 62.3 % 47-70 [facility] Nucleated red blood cell per centageOrdered By: Pérez Ren on 10-25-2024 Nucleated RBC/100 WBC (Bld) [Ratio] 0 % 0-5 [facility] Platelet countOrdered By: Norman Ren on 10-25-2024 Platelets (Bld) [#/Vol] 503 10*3/uL High 150-450 [facility] Potassium (Unsp spec) [Mass/ Vol]Ordered By: Pérez Ren on 10-25-2024 Potassium [Moles/Vol] 3.5 mmol/L 3.3-5.1 [facility] Potassium measurement (mass/ volume)Ordered By: Pérez Ren on 10-25-2024 Potassium (Unsp spec) [Mass/Vol] 3.5 mmol/L 3.3-5.1 [facility] ,Serum,hCG Quali.on 10-25-2024 HCG, SERUM QUAL Negative Normal [facility] Comment on above: Performed By: #### L 500.4050, L700.6800, L100.0100, L501.5200 ####[facility] [address] [place], [address] RBC Auto (Bld) [#/Vol]Ordere d By: Pérez Ren on 10-25-2024 RBC (Bld) [#/Vol] 5.00 10*6/uL 4.2-5.4 [facility] Serum beta-hCG test, qualita tiveOrdered By: Pérez Ren on 10-25-2024 Beta HCG ( test) Ql Negative [facility] Serum creatinine measurement (mass/volume)Ordered By: Pérez Ren on 10-25-2024 Creatinine [Mass/Vol] 0.77 mg/dL 0.70-1.20 [facility] Serum globulin measurementOr dered By: Pérez Ren on 10-25-2024 Globulin (S) [Mass/Vol] 3.8 g/dL 2.2-4.2 [facility] Serum glucose measurement (m ass/volume)Ordered By: Pérez Ren on 10-25-2024 Glucose [Mass/Vol] 105 mg/dL High 70-99 [facility] Serum or plasma alanine nath otransferase (ALT) measurementOrdered By: Pérez Ren on 10-25-2024 ALT [Catalytic activity/Vol] 44 U/L High <35 [facility] Serum or plasma albumin lawrence urement (mass/volume)Ordered By: Pérez Ren on 10-25-2024 Albumin [Mass/Vol] 4.2 g/dL 3.5-5.0 [facility] Serum or plasma albumin/glob ulin mass ratioOrdered By: Pérez Ren on 10-25-2024 Albumin/Globulin [Mass ratio] 1.1 {ratio} 0.9-2.4 [facility] Serum or plasma alkaline charisse sphatase measurementOrdered By: Pérez Ren on 10-25-2024 ALP [Catalytic activity/Vol] 80 U/L 35-104 [facility] Serum or plasma calcium lawrence urement (mass/volume)Ordered By: Pérez Ren on 10-25-2024 Calcium [Mass/Vol] 8.7 mg/dL 7.6-11.0 [facility] Serum or plasma urea nitroge n measurement (mass/volume)Ordered By: Pérez Ren on 10-25-2024 Urea nitrogen [Mass/Vol] 9 mg/dL 4- [facility] Sodium levelOrdered By: Pérez Ren on 10-25-2024 Sodium [Moles/Vol] 137 mmol/L 133-145 [facility] Total proteinOrdered By: Teresita Ren on 10-25-2024 Protein [Mass/Vol] 8.0 g/dL 5.9-8.4 [facility] White blood cell (WBC) count Ordered By: Pérez Ren on 10-25-2024 WBC (Bld) [#/Vol] 15.8 10*3/uL High 4.4-11.0 [facility] CNOVon 10-20-2024 CNOV Office Visit (INTMWS ) ----- KATIE FORDE ([id number]) 2000 F Date Time Provider Department 10/20/24 10:00 AM KATE SILVA INTMWS During your visit today, we recorded the following information about you: Temperature Pulse Respiration Blood pressure 99 degrees 95/minute 14/minute 118/70 Weight Height Last Period 133.8 kg 1.829 m 09/28/24 Kate Silva MD 11/15/2024 12:43 AM Signed This note was created using [employer]. Subjective Katie Forde is a 23 year old female. Patient presents with: ED Follow-up: lightheadedness, fatgiue x 1 month Katie is a 23-year-old female with a history of leukocytosis, depression, and anxiety, presenting with persistent fatigue, lightheadedness, and a recent onset of cough. Katie reports persistent fatigue and lightheadedness since the beginning of September, which have led to three ER visits: two at [facility] and one at [facility]. She notes that the lightheadedness has improved, but she continues to experience significant fatigue, describing it as really tired, like no matter how much I sleep, I'm really tired and I don't want to do anything. She also reports ongoing depersonalization and frequent palpitations. The symptoms were severe enough to prompt the ER visits, with Kaite stating, It just got really bad that night, I'm like, I can't do this. During her ER visits, she was informed that her white blood cell count was elevated, with the most recent count at 17.5. 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 She denies any suicidal [...] for wheezing/shortnes (more content not included)... Normal [facility] .Auto Diffon 10-13-2024 Basophil, Absolute 0.2 10 3/mcL Normal 0.0-0.3 [facility] Comment on above: Performed By: #### A KRISHAN, CBC, TROPHS, GFR, ADIFF, MDW, BMP #### [facility] [place] [address] [place], [place] [address] Basophils/100 WBC (Bld) 0.9 % Normal 0.0-2.5 [facility] Comment on above: Performed By: #### A KRISHAN, CBC, TROPHS, GFR, ADIFF, BRETT, BMP #### [address] [address] Eosinophil, Absolute 0.1 10 3/mcL Normal 0.0-0.7 [facility] Comment on above: Performed By: #### A KRISHAN, CBC, TROPHS, GFR, ADIFF, W, BMP #### [address] [address] Eosinophils/100 WBC (Bld) 0.5 % Normal 0.0-6.0 [facility] Comment on above: Performed By: #### A KRISHAN, CBC, TROPHS, GFR, ADIFF, W, BMP #### [address] [address] Lymphocyte, Absolute 4.8 10 3/mcL High 0.9-4.3 [facility] Comment on above: Performed By: #### A KRISHAN, CBC, TROPHS, GFR, ADIFF, BRETT, BMP #### [address] [address] Lymphocytes/100 WBC (Bld) 27.5 % Normal 20.0-40.0 [facility] Comment on above: Performed By: #### A KRISHAN, CBC, TROPHS, GFR, ADIFF, BRETT, BMP #### [address] [address] Monocyte, Absolute 1.1 10 3/mcL Normal 0.1-1.4 [facility] Comment on above: Performed By: #### A KRISHAN, CBC, TROPHS, GFR, ADIFF, W, BMP #### [address] [address] Monocytes/100 WBC (Bld) 6.1 % Normal 2.0-13.0 [facility] Comment on above: Performed By: #### A KRISHAN, CBC, TROPHS, GFR, ADIFF, MDW, BMP #### [address] [address] Neutrophils/100 WBC (Bld) 65.0 % Normal 50.0-75.0 [facility] Comment on above: Performed By: #### A KRISHAN, CBC, TROPHS, GFR, ADIFF, MDW, BMP #### [address] [address] .GFRon 10-13-2024 Estimated Glomerular Filtration Rate 85 ml/min/1.73sqm Normal [facility] Comment on above: Result Comment: Stages of [...] CBC, TROPHS, GFR, ADIFF, MDW, BMP #### [address] [address] .MDWon 10-13-2024 Monocyte Distribution Width 18.05 Normal 0.00-20.00 [facility] Comment on above: Result Comment: For ED adult patients suspected of sepsis, MDW<=20.0 does not rule out sepsis or risk of sepsis Performed By: #### A KRISHAN, CBC, TROPHS, GFR, ADIFF, MDW, BMP #### [address] [address] .NEUABSon 10-13-2024 Neutrophil, Absolute 11.4 10 3/mcL High 2.3-8.1 [facility] Comment on above: Performed By: #### A KRISHAN, CBC, TROPHS, GFR, ADIFF, MDW, BMP #### [address] [address] .Urinalysis Microscopic (AO) on 10-13-2024 UA Bacteria 1+ /hpf Abnormal [facility] Comment on above: Performed By: #### A KRISHAN, CBC, TROPHS, GFR, ADCLAU, W, BMP #### [address] [address] UA RBC 0-5 Abnormal None Seen [facility] Comment on above: Performed By: #### A KRISHAN, CBC, TROPHS, GFR, ADIFF, W, BMP #### [address] [address] UA Squam Epithelial 10-15 Abnormal None Seen [facility] Comment on above: Performed By: #### A KRISHAN, CBC, TROPHS, GFR, ADCLAU, W, BMP #### [place] [address] UA WBC 10-15 Abnormal None Seen [facility] Comment on above: Performed By: #### A KRISHAN, CBC, TROPHS, GFR, SURAJ, W, BMP #### [place] [address] BMPon 10-13-2024 BUN/Creatinine Ratio 13 ratio Normal 7-27 [facility] Comment on above: Performed By: #### A KRISHAN, CBC, TROPHS, GFR, ADCLAU, BRETT, BMP #### [address] [address] Calcium [Mass/Vol] 8.7 mg/dL Normal 8.4-10.[address] [facility] Comment on above: Performed By: #### A KRISHAN, CBC, TROPHS, GFR, SURAJ, BRETT, BMP #### [place] [address] Chloride [Moles/Vol] 103 mmol/L Normal 98-107 [facility] Comment on above: Performed By: #### A KRISHAN, CBC, TROPHS, GFR, SURAJ, BRETT, BMP #### [address] [address] CO2 [Moles/Vol] 29 mmol/L Normal 22-29 [facility] Comment on above: Performed By: #### A KRISHAN, CBC, TROPHS, GFR, ADCLAU, BRETT, BMP #### [address] [address] Creatinine [Mass/Vol] 0.95 mg/dL Normal 0.55-1.02 [facility] Comment on above: Result Comment: Test ing performed on [email or web address] Dimension EXL analyzer using a modified kinetic Schuyler technique. Performed By: #### A KRISHAN, CBC, TROPHS, GFR, BRETT RUELAS, BMP #### [address] [address] Electrolyte Balance 6.0 mEq/L Normal 4.0-15.0 [facility] Comment on above: Performed By: #### A KRISHAN, CBC, TROPHS, GFR, BRETT RUELAS, BMP #### [address] [address] Glucose [Mass/Vol] 99 mg/dL Normal 70-[address] [facility] Comment on above: Performed By: #### A KRISHAN, CBC, TROPHS, GFR, BRETT RUELAS, BMP #### [address] [address] Potassium [Moles/Vol] 3.7 mmol/L Normal 3.5-5.1 [facility] Comment on above: Performed By: #### A KRISHAN, CBC, TROPHS, GFR, ADCLAU, BRETT, BMP #### [address] [address] Sodium [Moles/Vol] 138 mmol/L Normal 136-[address] [facility] Comment on above: Performed By: #### A KRISHAN, CBC, TROPHS, GFR, ADIFF, BRETT, BMP #### [address] [address] Urea nitrogen [Mass/Vol] 12 mg/dL Normal 7-18 [facility] Comment on above: Performed By: #### A KRSIHAN, CBC, TROPHS, GFR, ADIFF, MDW, BMP #### [address] [address] CBCon 10-13-2024 Erythrocyte distribution width (RBC) [Ratio] 13.2 % Normal 11.5-15.5 [facility] Comment on above: Performed By: #### A KRISHAN, CBC, TROPHS, GFR, ADIFF, MDW, BMP #### [address] [address] Hematocrit (Bld) [Volume fraction] 39.8 % Normal 34.0-46.0 [facility] Comment on above: Performed By: #### A KRISHAN, CBC, TROPHS, GFR, ADIFF, MDW, BMP #### [address] [address] Hgb 13.6 G/dL Normal 12.0-16.0 [facility] Comment on above: Performed By: #### A KRISHAN, CBC, TROPHS, GFR, ADIFF, MDW, BMP #### [address] [address] MCH (RBC) [Entitic mass] 30.3 pg Normal 27.0-33.0 [facility] Comment on above: Performed By: #### A KRISHAN, CBC, TROPHS, GFR, ADIFF, MDW, BMP #### [address] [address] MCHC 34.1 G/dL Normal 32.0-36.0 [facility] Comment on above: Performed By: #### A KRISHAN, CBC, TROPHS, GFR, ADIFF, MDW, BMP #### [address] [address] MCV (RBC) [Entitic vol] 88.8 fL Normal 80.0-99.0 [facility] Comment on above: Performed By: #### A KRISHAN, CBC, TROPHS, GFR, ADIFF, MDW, BMP #### [address] [address] Platelet 459 10 3/mcL High 150-450 [facility] Comment on above: Performed By: #### A KRISHAN, CBC, TROPHS, GFR, BRETT RUELAS, BMP #### [address] [address] Platelet mean volume (Bld) [Entitic vol] 7.9 fL Normal 6.6-10.5 [facility] Comment on above: Performed By: #### A KRISHAN, CBC, TROPHS, GFR, BRETT RUELAS, BMP #### [address] [address] RBC 4.48 10 6/mcL Normal 4.10-5.30 [facility] Comment on above: Performed By: #### A KRISHAN, CBC, TROPHS, GFR, BRETT RUELAS, BMP #### [address] [address] WBC 17.5 10 3/mcL High 4.5-10.8 [facility] Comment on above: Performed By: #### A KRISHAN, CBC, TROPHS, GFR, BRETT RUELAS, BMP #### [address] [address] PREGUon 10-13-2024 HCG ( test) Ql (U) Negative Normal [facility] Comment on above: Performed By: #### U ADEREKMICJOLLY, PREGU #### [address] [address] test (u) int Not detected Invalid Interpretation Code [facility] Comment on above: Performed By: #### U A, UAMICAO, PREGU #### [address] [address] TROPHSon 10-13-2024 High Sensitivity Troponin I <4 Normal 0-51 [facility] Comment on above: Result Comment: High Sensitive Troponin I Reference Ranges: Female: 0-51 ng/L Male: 0-76 ng/L Testing performed on [email or web address] using a homogeneous sandwich chemiluminescent immunoassay based on [employer] technology. Performed By: #### A KRISHAN, CBC, TROPHS, GFR, BRETT RUELAS, BMP #### [place] [address] UAon 10-13-2024 Color (U) Yellow Normal [facility] Comment on above: Performed By: #### U A, UAMICAO, PREGU #### [place] [address] Glucose (U) [Mass/Vol] Negative Normal Negative [facility] Comment on above: Performed By: #### U A, UAMICAO, PREGU #### [place] [address] Ketones Ql (U) Negative Normal Negative [facility] Comment on above: Performed By: #### U A, UAMICAO, PREGU #### [place] [address] UA Appear Cloudy Abnormal Clear [facility] Comment on above: Performed By: #### U A, UAMICAO, PREGU #### [place] [address] UA Blood Trace Abnormal Negative [facility] Comment on above: Performed By: #### U A, UAMICAO, PREGU #### [place] [address] UA Leuk Est Negative Normal Negative [facility] Comment on above: Performed By: #### U A, UAMICAO, PREGU #### [place] [address] UA Nitrite Negative Normal Negative [facility] Comment on above: Performed By: #### U A, UAMICAO, PREGU #### [place] [address] UA pH 5.5 Normal 5.0 - 8.0 [facility] Comment on above: Performed By: #### U A, UAMICAO, PREGU #### [place] [address] UA Protein Negative Normal Negative [facility] Comment on above: Performed By: #### U A, UAMICAO, PREGU #### [address] [address] UA Spec Grav >=1.030 Abnormal 1.015-1.025 [facility] Comment on above: Performed By: #### U ANJU Gupta, PREGU #### [address] [address] UA Specimen Type Clean Catch Normal [facility] Comment on above: Performed By: #### U Candy UAMICJOLLY, PREGU #### [address] [address] UA Urobilinogen 0.2 E.U./dL Normal 0.2-1.0 [facility] Comment on above: Performed By: #### U DEREK GuptaMICJOLLY, PREGU #### [place] [address] Urobilinogen (U) [Mass/Vol] Negative Normal Negative [facility] Comment on above: Performed By: #### U ANJU Gupta, PREGU #### [address] [address] XR CHEST 1 VIEWon 10-13-2024 XR CHEST [...] 2:03:20 AM Ordering Provider: GISELLE TELLES Normal [facility] BACTERIAL VAGINOSIS NAATon 0 10-11-2024 Lactobacillus crispatus+gasseri+agustina senii + Gardnerella vaginalis + Atopobium vaginae rRNA EDMOND+probe Ql (Vag fld) Not detected Normal Not detected [facility] Comment on above: Order Comment: Speci men Type: SWABOrdering Facility: [facility] Address: [address] [place] [address] Performed By: #### C VTV, BVAMP ####[facility] LABCLIA [id number] [place] [address] [place] YEIMY/TRICHOMONAS NAATon 0 10-11-2024 C. glabrata RNA EDMOND+probe Ql (Vag fld) Not detected Normal Not detected [facility] Comment on above: Order Comment: Speci men Type: SWABOrdering Facility: [facility] Address: [address] [place] [address] Performed By: #### C VTV, BVAMP ####[facility] LABCLIA [id number] [address] [place] Yeimy sp DNA EDMOND+probe Ql (Vag fld) Not detected Normal Not detected [facility] Comment on above: Order Comment: Speci men Type: SWABOrdering Facility: [facility] Address: [address] [place] [address] Result Comment: The Yeimy species group target includes C. albicans, C. tropicalis, C. parapsilosis, and C. dubliniensis. Performed By: #### C VTV, BVAMP ####[facility] LABCLIA [id number] [address] [place] T. vaginalis DNA EDMOND+probe Ql (Unsp spec) Not detected Normal Not detected [facility] Comment on above: Order Comment: Speci men Type: SWABOrdering Facility: [facility] Address: [address] [place] [address] Performed By: #### C VTV, BVAMP ####[facility] LABCLIA [id number] [place] [address] [place] CNOVon 10-11-2024 CNOV Office Visit (OBGYWM ) ----- KATIE FORDE ([id number]) 2000 F Date Time Provider Department 10/11/24 9:30 AM PAT FERRER OBGYWM During your visit today, we recorded the following information about you: Blood pressure Weight Last Period 100/66 133.5 kg 08/06/24 Arminda Montoya LPN 10/11/2024 9:34 AM Signed VULVAR BIOPSY PATIENT INSTRUCTIONS Many conditions may cause your user experience designer to suggest a vulvar biopsy including vulvar itching unresponsive to therapy, ulcerated lesions, pigmented lesions, and tumors. The biopsy result will assist your user experience designer to devise a treatment plan suitable to [...] weeks please contact your physician. Pat Ferrer APRN.JAMB CUTTER 10/11/2024 10:13 AM Signed Patient declined chaperoene. [...] mL 1% lidocaine with 1:100,000 epi. 4mm [place] punch used to biopsy region. HEMOSTASIS: Obtained with silver nitrate and pressure Procedure Summary: Patient tolerated procedure well. ASSESSMENT: persistent vulvar irritation PLAN: Specimens labeled and sent to Pathology. Will notify patient of results in 1-2 weeks. Post-procedure instructions reviewed and written material given to the patient. Pat Ferrer APRN.JAMB CUTTER Referring Provider: PAT FERRER [[id number]] Allergies As of Date: 10/11/2024 (No Known Allergies) Date Reviewed: 10/11/2024 Reviewed by: Arminda Montoya LPN - Fully Assessed Reason for Visit: vulvar biopsy [Other] Primary Visit Diagnosis:Vulvar itching [L29.2] Other Visit Diagnosis:Missed menses [N92.6] Order(s):SURGICAL PATHOLOGY [HJR1901] Order #: [id number] UA DIP,URINE HCG (POC) [2393481] Order #: [id number]. #:[id number] 74-LAB YEIMY/TRICHOMONAS NAAT [SQCVTV] Order #: [id number] BACTERIAL VAGINOSIS NAAT [SQBVAMP] Order #: [id number] Prescriptions as of 10/11/2024 - meclizine (ANTIVERT) [...] - amphet (more content not included)... Normal [facility] CNOVSPon 10-11-2024 OVS Visit (SP) Office (JANNET) ----- KATIE FORDE ([id number]) 2000 F Date Time Provider Department 10/11/24 [...] every mornin (more content not included)... Normal [facility] Pathology biopsy report Jeff (Tiss)on 10-11-2024 AP DISCLAIMER Normal [facility] Comment on above: Order Comment: Speci men Type: TISSUE SPECIMENOrdering Facility: [facility] Address: [address] [place] [address] Result Comment: Faby Sanchez Test (LDT) Disclaimer: Performance characteristics of immunohistochemical, immunofluorescent, and chromogenic in-situ hybridization tests have been determined by the performing laboratory within [facility]'s [facility] Pathology and Laboratory Medicine Department ([facility], [facility], [facility], [facility], [facility], [facility], or [facility]) in a manner consistent with CLIA requirements. One or more of these tests may not have been cleared or approved by the FDA. [facility] is regulated under CLIA as qualified to perform high-complexity testing. These tests are used for clinical purposes. These should not be regarded as investigational or for research. Positive and negative controls stain appropriately. Performed By: #### 6 6121-5 ####[facility] LABCLIA [id number] [place] [address] [place] CASE REPORT Normal [facility] Comment on above: Order Comment: Speci men Type: TISSUE SPECIMENOrdering Facility: [facility] Address: [address] [place] [address] Result Comment: Surg [facility] Pathology Report Case: [id number] Authorizing Provider: Pat Ferrer APRN.JAMB CUTTER Collected: 10/11/2024 10:59 AM Ordering Location: OB/Gynecology Received: 10/11/2024 11:44 AM Pathologist: Gabbie Mathews MD Specimen: Vulva, Biopsy Performed By: #### 6 6121-5 ####[facility] LABCLIA [id number] [place] [address] [place] CLINICAL HISTORY vulvar irritation Normal C [facility] Comment on above: Order Comment: Speci men Type: TISSUE SPECIMENOrdering Facility: [facility] Address: [address] [place] [address] Performed By: #### 6 6121-5 ####[facility] LABCLIA [id number] [address] [address] [place] DIAGNOSIS COMMENT Normal [facility] Comment on above: Order Comment: Speci men Type: TISSUE SPECIMENOrdering Facility: [facility] Address: [address] [place] [address] Result Comment: A PA S stain is negative for fungal organisms. Dr. Hawk Lovell (dermatopathology) reviewed this case and agrees with the diagnosis. Performed By: #### 6 6121-5 ####[facility] LABCLIA [id number] [place] [id number] [place] FINAL DIAGNOSIS Normal [facility] Comment on above: Order Comment: Speci men Type: TISSUE SPECIMENOrdering Facility: [facility] Address: [address] [place] [address] Result Comment: Vulv a, biopsy: Lichen simplex chronicus; see comment. at 1526 EDT Performed By: #### 6 6121-5 ####[facility] LABCLIA [id number] [address] [place] FINAL PERFORMING LAB Normal [facility] Comment on above: Order Comment: Speci men Type: TISSUE SPECIMENOrdering Facility: [facility] Address: [address] [place] [address] Result Comment: Diag nostic interpretation performed at: [facility], [address] [place], [place] [address] CLIA# [id number] Heel Cover Softener: Steven Shelby MD Performed By: #### 6 6121-5 ####[facility] LABCLIA [id number] [address] [place] GROSS DESCRIPTION Normal [facility] Comment on above: Order Comment: Speci men Type: TISSUE SPECIMENOrdering Facility: [facility] Address: [address] [place] [address] Result Comment: A. V ulva, Biopsy Received in formalin are two pieces of leon-white to red, soft tissue aggregating to 0.8 x 0.2 x 0.2 cm. Totally submitted in one cassette. Gross examination performed at [facility], [address] [place] [address] KK October 11, 2024 5:20 PM Performed By: #### 6 6121-5 ####[facility] LABCLIA [id number] [place] [address] [place] UA DIP,URINE HCG (POC)on Beta HCG ( test) Ql (U) Negative Negative [facility] Comment on above: Location:[facility], [address], [place], [address] Fraud Examiner (POCT) Internal QC OK [facility] Location:[facility], [address], [place], [address] [facility] POINT OF CARE [facility] CNPKalyn 10-07-2024 CNPN Telephone (JANNET) ----- KATIE FORDE ([id number]) 2000 F Date Time Provider Department 10/07/24 GOPAL YANEZ During your visit today, we recorded the following information about you: Megha Crandall 10/07/2024 1:47 PM Signed Patient states she was at [facility] ED and they informed her to [...] Status:Closed by RENO MCCOLLUM on 10/07/24 [facility] KATIE FORDE ([id number]) 2000 F Date Time Provider Department 10/07/24 KATE SILVA INTMWS During your visit today, we recorded the following information about you: Liza Post, SHAJI 10/07/2024 1:59 PM Signed Patient reports she was seen in [facility] ER on 09/29/24 AND 10/06/24 for [...] and neurology consults. Will touch base with jail keeper before sending formal order so they can make recommendations for labs to order prior as indicated. Consult order filed for neurology. Zohreh Fregoso LPN 10/08/2024 11:45 AM Signed My chart message sent to patient. WAYNE Pina Kathryn, MA 10/08/2024 3:18 PM Signed Pt read [employer] message. Ami Alberts MA Allergies As of Date: 10/07/2024 (No Known Allergies) Date Reviewed: 10/01/2024 Reviewed by: Annalee Jaffe LPN - Fully Assessed Reason for Visit: Patient Question [7057] Primary Visit Diagnosis:Numbness and tingling [R20.0, R20.2] Order(s):CONSULT TO NEUROLOGY [9019] Order #: [id number]: 1 FUTURE Prescriptions as of 10/08/2024 - [...] pediatric, greater (more content not included)... Normal [facility] 12 Lead EKGon 10-06-2024 12 Lead EKG [facility] [address] [place] [address] 12 Lead EKG 10/06/242039 MR#: [id number] Acct: [id number] Name: KATIE FORDE Rep #: [id number] : 2000 From: Tom Corey MD Attending [...] ECG Confirmed by TOM COREY MD ([id number]), assistant film editor LOS ZARATE ([id number]) on 10/07/2024 8:41:43 AM Referred By: Confirmed By: TOM COREY MD 10/07/24 0841 Date Tom Corey MD CC: Dr. Kate Silva MD; Dr. Mike Feldman DO Signed Normal [facility] Absolute lymphocyte countOrd ered By: Mike Feldman on 10-06-2024 Lymphocytes Auto (Unsp spec) [#/Vol] 3.60 10*3/uL 0.83-4.51 [facility] Absolute neutrophil countOrd ered By: Mike Feldman on 10-06-2024 Neutrophils (Bld) [#/Vol] 12.1 10*3/uL High 2.0-7.7 [facility] Anion gap in Serum or Plasma Ordered By: Mike Feldman on 10-06-2024 Anion gap [Moles/Vol] 13 mmol/L 5-15 [facility] Automated lymphocyte count a s percentage of total leukocytesOrdered By: Mike Feldman on 10-06-2024 Lymphocytes/100 WBC Auto (Unsp spec) 21.6 % 19-41 [facility] BUN/creatinine ratioOrdered By: Mike Feldman on 10-06-2024 Urea nitrogen/Creatinine [Mass ratio] 12.8 mg/mg 10- [facility] Basic Metabolic Profile (BMP )on 10-06-2024 BUN/CRE 12.8 RATIO Normal - [facility] Comment on above: Performed By: #### L 500.2500, L501.9520, L100.0100 #### [facility] [address] [place], [address] Calcium [Mass/Vol] 9.2 mg/dL Normal 7.6-11.0 [facility] Comment on above: Performed By: #### L 500.2500, L501.9520, L100.0100 #### [facility] [address] [place], [address] Chloride [Moles/Vol] 102 mmol/L Normal 98-108 [facility] Comment on above: Performed By: #### L 500.2500, L501.9520, L100.0100 #### [facility] [address] [place], [address] CO2 [Moles/Vol] 23.1 mmol/L Normal 21.0-32.0 [facility] Comment on above: Performed By: #### L 500.2500, L501.9520, L100.0100 #### [facility] [address] [place], [address] Creatinine [Mass/Vol] 0.78 mg/dL Normal 0.70-1.20 [facility] Comment on above: Performed By: #### L 500.2500, L501.9520, L100.0100 #### [facility] [address] [place], [address] ECRCL 172.04 ml/min Normal 50-250 [facility] Comment on above: Performed By: #### L 500.2500, L501.9520, L100.0100 #### [facility] [address] [place], [address] GAP 13 Normal 5-15 [facility] Comment on above: Performed By: #### L 500.2500, L501.9520, L100.0100 #### [facility] [address] [place], [address] GFR/1.73 sq M.predicted among non-blacks MDRD (S/P/Bld) [Vol rate/Area] 109 mL/min/{1.73_m2} Normal >60 [facility] Comment on above: Result Comment: mL/m in/1.73m2 CKD-EPI Creatinine Equation (2020) Performed By: #### L 500.2500, L501.9520, L100.0100 #### [facility] [address] [place], [address] Glucose [Mass/Vol] 96 mg/dL Normal 70-99 [facility] Comment on above: Performed By: #### L 500.2500, L501.9520, L100.0100 #### [facility] [address] [place], [address] Potassium [Moles/Vol] 3.9 mmol/L Normal 3.3-5.1 [facility] Comment on above: Performed By: #### L 500.2500, L501.9520, L100.0100 #### [facility] [address] [place], [address] Sodium [Moles/Vol] 138 mmol/L Normal 133-145 [facility] Comment on above: Performed By: #### L 500.2500, L501.9520, L100.0100 #### [facility] [address] [place], [address] Urea nitrogen [Mass/Vol] 10 mg/dL Normal 4- [facility] Comment on above: Performed By: #### L 500.2500, L501.9520, L100.0100 #### [facility] [address] [place], [address] Basophil percentageOrdered B y: Mike Feldman on 10-06-2024 Basophils/100 WBC (Bld) 0.5 % 0-1 [facility] Brain/Head without Contrasto n 10-06-2024 Brain/Head without Contrast [facility] [address] [facility] [address] [place], [place] [address] Brain/Head without Contrast MR#: [id number] Acct: [id number] Name: KATIE FORDE Rep #: [id number] : 2000 From: Colt escobar MD PCP: Dr. Kate Silav MD Status: REG ER Study: Brain/Head without Contrast Date of Exam: 03/24 Exam# [id number] Ordering Dr: Mike Feldman DO PROCEDURE: BRAIN/HEAD [...] Kate Silva MD; Dr. Mike Le, DO Sheep Shearer: Signed Normal [facility] CBC W/Diff, Automatedon 04-0 -2024 Absolute Lymph 3.60 X10 3/uL Normal 0.83-4.51 [facility] Comment on above: Performed By: #### L 500.2500, L501.9520, L100.0100 #### [facility] [address] [place], [address] Absolute Neut 12.1 X10 3/uL High 2.0-7.7 [facility] Comment on above: Performed By: #### L 500.2500, L501.9520, L100.0100 #### [facility] [address] [place], [address] Basophils/100 WBC (Bld) 0.5 % Normal 0-1 [facility] Comment on above: Performed By: #### L 500.2500, L501.9520, L100.0100 #### [facility] [address] [place], [address] Eosinophils/100 WBC (Bld) 0.4 % Normal 0-5 [facility] Comment on above: Performed By: #### L 500.2500, L501.9520, L100.0100 #### [facility] [address] [place], [address] Erythrocyte distribution width (RBC) [Ratio] 12.1 % Normal 11.6-14.6 [facility] Comment on above: Performed By: #### L 500.2500, L501.9520, L100.0100 #### [facility] [address] [place], [address] Hematocrit (Bld) [Volume fraction] 42.9 % Normal 37-47 [facility] Comment on above: Performed By: #### L 500.2500, L501.9520, L100.0100 #### [facility] [address] [place], [address] Hemoglobin (Bld) [Mass/Vol] 14.7 g/dL Normal 12.0-15.0 [facility] Comment on above: Performed By: #### L 500.2500, L501.9520, L100.0100 #### [facility] [address] [place], [address] IG% 0.400 Normal 0.0-0.9 [facility] Comment on above: Result Comment: IG% - Immature Granulocytes (promyelocytes, myelocytes and metamyelocytes) > 1% indicates that a LEFT SHIFT is Present. Performed By: #### L 500.2500, L501.9520, L100.0100 #### [facility] [address] [place], [address] Lymphocytes/100 WBC (Bld) 21.6 % Normal 19-41 [facility] Comment on above: Performed By: #### L 500.2500, L501.9520, L100.0100 #### [facility] [address] [place], [address] MCH (RBC) [Entitic mass] 30.2 pg Normal 27.0-32.0 [facility] Comment on above: Performed By: #### L 500.2500, L501.9520, L100.0100 #### [facility] [address] [place], [address] MCHC (RBC) [Mass/Vol] 34.3 g/dL Normal 32-36 [facility] Comment on above: Performed By: #### L 500.2500, L501.9520, L100.0100 #### [facility] [address] [place], [address] MCV (RBC) [Entitic vol] 88.3 fL Normal 81-99 [facility] Comment on above: Performed By: #### L 500.2500, L501.9520, L100.0100 #### [facility] [address] [place], [address] Monocytes/100 WBC (Bld) 4.6 % Normal 0-10 [facility] Comment on above: Performed By: #### L 500.2500, L501.9520, L100.0100 #### [facility] [address] [place], [address] Neutrophils/100 WBC (Bld) 72.5 % High 47-70 [facility] Comment on above: Performed By: #### L 500.2500, L501.9520, L100.0100 #### [facility] [address] [place], [address] Nucleated RBC (Bld) [#/Vol] 0 10*3/uL Normal 0-5 [facility] Comment on above: Performed By: #### L 500.2500, L501.9520, L100.0100 #### [facility] [address] [place], [address] Platelet mean volume (Bld) [Entitic vol] 9.7 fL Normal 6.2-12.0 [facility] Comment on above: Performed By: #### L 500.2500, L501.9520, L100.0100 #### [facility] [address] [place], [address] Platelets (Bld) [#/Vol] 512 10*3/uL High 150-450 [facility] Comment on above: Performed By: #### L 500.2500, L501.9520, L100.0100 #### [facility] [address] [place], [address] RBC (Bld) [#/Vol] 4.86 10*6/uL Normal 4.2-5.4 [facility] Comment on above: Performed By: #### L 500.2500, L501.9520, L100.0100 #### [facility] [address] [place], [address] RDW SD 39.6 fl Normal 35.1-43.9 [facility] Comment on above: Performed By: #### L 500.2500, L501.9520, L100.0100 #### [facility] [address] [place], [address] WBC (Bld) [#/Vol] 16.7 10*3/uL High 4.4-11.0 [facility] Comment on above: Performed By: #### L 500.2500, L501.9520, L100.0100 #### [facility] [address] [place], [address] Carbon dioxide, total [Moles /volume] in Central venous bloodOrdered By: Mike Feldman on 10-06-2024 CO2 [Moles/Vol] 23.1 mmol/L 21.0-32.0 [facility] Chloride assayOrdered By: Jasiel Feldman on 10-06-2024 Chloride [Moles/Vol] 102 mmol/L 98-108 [facility] Emergency Department Summary on 10-06-2024 Emergency Department Summary [facility] Medical Records Department [address] [place] [address] Emergency Department Summary 10/06/24 MR#: [id number] Acct: [id number] Name: KATIE FORDE Rep #: [id number] : 2000 23 From: Mike Caballero PCP: Dr. Kate Silva MD Status:[facility] ER Location: ED HPI History of Present [...] x3, CN's (more content not included)... Normal [facility] Eosinophil percentageOrdered By: Mike Feldman on 10-06-2024 Eosinophils/100 WBC (Bld) 0.4 % 0-5 [facility] Erythrocyte distribution wid th (RBC) [Ratio]Ordered By: Mike Feldman on 10-06-2024 Erythrocyte distribution width (RBC) [Entitic vol] 39.6 fL 35.1-43.9 [facility] Erythrocyte distribution wid th ratioOrdered By: Mike Feldman on 10-06-2024 Erythrocyte distribution width (RBC) [Ratio] 12.1 % 11.6-14.6 [facility] Erythrocyte distribution wid th standard deviationOrdered By: Mike Feldman on 10-06-2024 Erythrocyte distribution width (RBC) [Ratio] 39.6 fl 35.1-43.9 [facility] Estimation of creatinine nicole aranceOrdered By: Mike Feldman on 10-06-2024 Estimated Creatinine Clearance Calc 172.04 ml/min 50-250 [facility] GFR/1.73 sq M.predicted tiesha g non-blacks MDRD (S/P/Bld) [Vol rate/Area]Ordered By: Mike Feldman on 10-06-2024 Estimated GFR (MDRD) Non-Af Amer 109 >60 [facility] Comment on above: mL/min/1.73m2 CKD-EP I Creatinine Equation (2020) Glomerular filtration rate ( GFR) estimation/1.73 sq m using serum, plasma, or whole bOrdered By: Mike Feldman on 10-06-2024 GFR/1.73 sq M.predicted among non-blacks MDRD (S/P/Bld) [Vol rate/Area] 109 mL/min/{1.73_m2} >60 [facility] Comment on above: mL/min/1.73m2 CKD-EP I Creatinine Equation (2020) Hematocrit Auto (Bld) [Volum e fraction]Ordered By: Mike Feldman on 10-06-2024 Hematocrit (Bld) [Volume fraction] 42.9 % 37-47 [facility] Hemoglobin measurementOrdere d By: Mike Feldman on 10-06-2024 Hemoglobin (Bld) [Mass/Vol] 14.7 g/dL 12.0-15.0 [facility] Immature granulocytes/100 WB C Auto (Bld)Ordered By: Mike Feldman on 10-06-2024 Immature granulocytes/100 WBC (Bld) 0.400 % 0.0-0.9 [facility] Comment on above: IG% - Immature Granu locytes (promyelocytes, myelocytes and metamyelocytes) > 1% indicates that a LEFT SHIFT is Present. Lymphocytes Auto (Unsp spec) [#/Vol]Ordered By: Mike Feldman on 10-06-2024 Lymphocytes (Bld) [#/Vol] 3.60 10*3/uL 0.83-4.51 [facility] Lymphocytes/100 WBC Auto (Un sp spec)Ordered By: Mike Feldman on 10-06-2024 Lymphocytes/100 WBC (Bld) 21.6 % 19-41 [facility] MCV (mean corpuscular volume ) determinationOrdered By: Mike Feldman on 10-06-2024 MCV (RBC) [Entitic vol] 88.3 fL 81-99 [facility] Mean corpuscular hemoglobin (MCH) determinationOrdered By: Mike Feldman on 10-06-2024 MCH (RBC) [Entitic mass] 30.2 pg 27.0-32.0 [facility] [facility] Mean corpuscular hemoglobin concentration (MCHC) determinationOrdered By: Mike Feldman on 10-06-2024 MCHC (RBC) [Mass/Vol] 34.3 g/dL 32-36 [facility] Mean platelet volume determi nationOrdered By: Mike Feldman on 10-06-2024 Platelet mean volume (Bld) [Entitic vol] 9.7 fL 6.2-12.0 [facility] Monocyte percentageOrdered B y: Mike Feldman on 10-06-2024 Monocytes/100 WBC (Bld) 4.6 % 0-10 [facility] Neutrophil percentageOrdered By: Mike Feldman on 10-06-2024 Neutrophils/100 WBC (Bld) 72.5 % High 47-70 [facility] Nucleated red blood cell per centageOrdered By: Mike Feldman on 10-06-2024 Nucleated RBC/100 WBC (Bld) [Ratio] 0 % 0-5 [facility] Platelet countOrdered By: Jasiel Feldman on 10-06-2024 Platelets (Bld) [#/Vol] 512 10*3/uL High 150-450 [facility] Potassium (Unsp spec) [Mass/ Vol]Ordered By: Mike Feldman on 10-06-2024 Potassium [Moles/Vol] 3.9 mmol/L 3.3-5.1 [facility] Potassium measurement (mass/ volume)Ordered By: Mike Feldman on 10-06-2024 Potassium (Unsp spec) [Mass/Vol] 3.9 mmol/L 3.3-5.1 [facility] RBC Auto (Bld) [#/Vol]Ordere d By: Mike Feldman on 10-06-2024 RBC (Bld) [#/Vol] 4.86 10*6/uL 4.2-5.4 [facility] Serum creatinine measurement (mass/volume)Ordered By: Mike Feldman on 10-06-2024 Creatinine [Mass/Vol] 0.78 mg/dL 0.70-1.20 [facility] Serum glucose measurement (m ass/volume)Ordered By: Mike Feldman on 10-06-2024 Glucose [Mass/Vol] 96 mg/dL 70-99 [facility] Serum or plasma calcium lawrence urement (mass/volume)Ordered By: Mike Feldman on 10-06-2024 Calcium [Mass/Vol] 9.2 mg/dL 7.6-11.0 [facility] Serum or plasma urea nitroge n measurement (mass/volume)Ordered By: Mike Feldman on 10-06-2024 Urea nitrogen [Mass/Vol] 10 mg/dL 4-19 [facility] Sodium levelOrdered By: Mike Feldman on 10-06-2024 Sodium [Moles/Vol] 138 mmol/L 133-145 [facility] TSH DL <= 0.005 mIU/L QnOrde red By: Mike Feldman on 10-06-2024 Thyroid Stimulating Hormone (TSH) 0.571 uIU/mL 0.300-4.200 [facility] TSH Qn 0.571 uIU/mL 0.300-4.200 [facility] Thyroid Stim Hormone (TSH)on 10-06-2024 TSH 0.571 uIU/mL Normal 0.300-4.200 [facility] Comment on above: Performed By: #### L 500.2500, L501.9520, L100.0100 ####[facility] [address] [place], [address] White blood cell (WBC) count Ordered By: Mike Feldman on 10-06-2024 WBC (Bld) [#/Vol] 16.7 10*3/uL High 4.4-11.0 [facility] CNOVon 10-01-2024 CNOV Office Visit (INTMWS ) ----- KATIE FORDE ([id number]) 2000 F Date Time Provider Department 10/01/24 10:00 AM KATE SILVA INTWS During your visit today, we recorded the following information about you: Pulse Respiration Blood pressure Weight 64/minute 14/minute 110/64 133.2 kg Kate Silva MD 10/01/2024 11:22 AM Signed This note was created using [employer]. Subjective Katie Forde is a 23 year [...] issues with her kidneys. She has tried nmge-jyz-lhxlyot Dramamine for the lightheadedness but reports that [...] to 30 (more content not included)... Normal [facility] 12 Lead EKGon 09-29-2024 12 Lead EKG [facility] [address] [place] [address] 12 Lead EKG 09/29/24 2040 MR#: [id number] Acct: [id number] Name: KATIE FORDE Rep #: [id number] : 2000 From: Tom Corey MD Attending [...] ECG Confirmed by TOM COREY MD ([id number]), assistant film editor BRANDAN VAZQUEZ ([id number]) on 10/01/2024 9:23:01 AM Referred By: JACQUELIN Confirmed By: TOM COREY MD 10/01/24 0923 Date Tom Corey MD CC: DUNIA Agarwal; Dr. Kate Silva MD; Dr. Shiv Roper, DO Signed Normal [facility] Absolute lymphocyte countOrd ered By: Russell Agarwal on 09-29-2024 Lymphocytes Auto (Unsp spec) [#/Vol] 3.89 10*3/uL 0.83-4.51 [facility] Absolute neutrophil countOrd ered By: Russell Agarwal on 09-29-2024 Neutrophils (Bld) [#/Vol] 10.0 10*3/uL High 2.0-7.7 [facility] Anion gap in Serum or Plasma Ordered By: Russell Agarwal on 09-29-2024 Anion gap [Moles/Vol] 12 mmol/L 5-15 [facility] Automated lymphocyte count a s percentage of total leukocytesOrdered By: Russell Agarwal on 09-29-2024 Lymphocytes/100 WBC Auto (Unsp spec) 25.9 % 19-41 [facility] BUN/creatinine ratioOrdered By: Russell Agarwal on 09-29-2024 Urea nitrogen/Creatinine [Mass ratio] 9.7 mg/mg Low 10-20 [facility] Basophil percentageOrdered B y: Russell Agarwal on 09-29-2024 Basophils/100 WBC (Bld) 0.6 % 0-1 [facility] Bilirubin Test strip Ql (U)O rdered By: Shiv Roper on 09-29-2024 Bilirubin Ql (U) Negative Negative [facility] Bilirubin, totalOrdered By: Russell Agarwal on 09-29-2024 Bilirubin [Mass/Vol] 0.33 mg/dL 0.00-1.30 [facility] CBC W/Diff, Automatedon Absolute Lymph 3.89 X10 3/uL Normal 0.83-4.51 [facility] Comment on above: Performed By: #### L 500.4050, L501.2450, L100.0100 ####[facility] [address] [place], [address] Absolute Neut 10.0 X10 3/uL High 2.0-7.7 [facility] Comment on above: Performed By: #### L 500.4050, L501.2450, L100.0100 ####[facility] [address] [place], [address] Basophils/100 WBC (Bld) 0.6 % Normal 0-1 [facility] Comment on above: Performed By: #### L 500.4050, L501.2450, L100.0100 ####[facility] [address] [place], [address] Eosinophils/100 WBC (Bld) 0.5 % Normal 0-5 [facility] Comment on above: Performed By: #### L 500.4050, L501.2450, L100.0100 ####[facility] [address] [place], [address] Erythrocyte distribution width (RBC) [Ratio] 12.3 % Normal 11.6-14.6 [facility] Comment on above: Performed By: #### L 500.4050, L501.2450, L100.0100 ####[facility] [address] [place], [address] Hematocrit (Bld) [Volume fraction] 42.1 % Normal 37-47 [facility] Comment on above: Performed By: #### L 500.4050, L501.2450, L100.0100 ####[facility] [address] [place], [address] Hemoglobin (Bld) [Mass/Vol] 14.6 g/dL Normal 12.0-15.0 [facility] Comment on above: Performed By: #### L 500.4050, L501.2450, L100.0100 ####[facility] [address] [place], [address] IG% 0.500 Normal 0.0-0.9 [facility] Comment on above: Result Comment: IG% - Immature Granulocytes (promyelocytes, myelocytes and metamyelocytes) > 1% indicates that a LEFT SHIFT is Present. Performed By: #### L 500.4050, L501.2450, L100.0100 ####[facility] [address] [place], [address] Lymphocytes/100 WBC (Bld) 25.9 % Normal 19-41 [facility] Comment on above: Performed By: #### L 500.4050, L501.2450, L100.0100 ####[facility] [address] [place], [address] MCH (RBC) [Entitic mass] 30.2 pg Normal 27.0-32.0 [facility] Comment on above: Performed By: #### L 500.4050, L501.2450, L100.0100 ####[facility] [address] [place], [address] MCHC (RBC) [Mass/Vol] 34.7 g/dL Normal 32-36 [facility] Comment on above: Performed By: #### L 500.4050, L501.2450, L100.0100 ####[facility] [address] [place], [address] MCV (RBC) [Entitic vol] 87.2 fL Normal 81-99 [facility] Comment on above: Performed By: #### L 500.4050, L501.2450, L100.0100 ####[facility] [address] [place], [address] Monocytes/100 WBC (Bld) 5.8 % Normal 0-10 [facility] Comment on above: Performed By: #### L 500.4050, L501.2450, L100.0100 ####[facility] [address] [place], [address] Neutrophils/100 WBC (Bld) 66.7 % Normal 47-70 [facility] Comment on above: Performed By: #### L 500.4050, L501.2450, L100.0100 ####[facility] [address] [place], [address] Nucleated RBC (Bld) [#/Vol] 0 10*3/uL Normal 0-5 [facility] Comment on above: Performed By: #### L 500.4050, L501.2450, L100.0100 ####[facility] [address] [place], [address] Platelet mean volume (Bld) [Entitic vol] 9.4 fL Normal 6.2-12.0 [facility] Comment on above: Performed By: #### L 500.4050, L501.2450, L100.0100 ####[facility] [address] [place], [address] Platelets (Bld) [#/Vol] 503 10*3/uL High 150-450 [facility] Comment on above: Performed By: #### L 500.4050, L501.2450, L100.0100 ####[facility] [address] [place], [address] RBC (Bld) [#/Vol] 4.83 10*6/uL Normal 4.2-5.4 [facility] Comment on above: Performed By: #### L 500.4050, L501.2450, L100.0100 ####[facility] [address] [place], [address] RDW SD 39.3 fl Normal 35.1-43.9 [facility] Comment on above: Performed By: #### L 500.4050, L501.2450, L100.0100 ####[facility] [address] [place], [address] WBC (Bld) [#/Vol] 15.0 10*3/uL High 4.4-11.0 [facility] Comment on above: Performed By: #### L 500.4050, L501.2450, L100.0100 ####[facility] [address] [place], [place], [address] Carbon dioxide, total [Moles /volume] in Central venous bloodOrdered By: Russell Agarwal on 09-29-2024 CO2 [Moles/Vol] 23.3 mmol/L 21.0-32.0 [facility] Chest 1 View (Portable)on Chest 1 View (Portable) [facility] Services [address] [place], [place] [address] Chest 1 View (Portable) MR#: [id number] Acct: [id number] Name: KATIE FORDE Rep #: [id number] : 2000 F 23 From: Babak Cortes DO PCP: Dr. Kate Silva MD Status: [facility] ER Study: Chest 1 View (Portable) Date of Exam: 09/29/24 Exam# [id number] Ordering Dr: Shiv Roper DO PROCEDURE: CHEST [...] Kate Silva MD; Dr. Shiv Roper DO Sheep Shearer: Signed Normal [facility] Chloride assayOrdered By: Aditya Agarwal on 09-29-2024 Chloride [Moles/Vol] 102 mmol/L 98-108 [facility] Comprehensive Metabolic Prof ilon 09-29-2024 Albumin [Mass/Vol] 4.3 g/dL Normal 3.5-5.0 [facility] Comment on above: Performed By: #### L 500.4050, L501.2450, L100.0100 ####[facility] [address] [place], [address] Albumin/Globulin [Mass ratio] 1.2 {ratio} Normal 0.9-2.4 [facility] Comment on above: Performed By: #### L 500.4050, L501.2450, L100.0100 ####[facility] [address] [place], [address] ALK PHOS 80 U/L Normal 35-104 [facility] Comment on above: Performed By: #### L 500.4050, L501.2450, L100.0100 ####[facility] [address] [place], [address] ALT [Catalytic activity/Vol] 68 U/L High <=34 [facility] Comment on above: Performed By: #### L 500.4050, L501.2450, L100.0100 ####[facility] [address] [place], [address] AST [Catalytic activity/Vol] 43 U/L High <=31 [facility] Comment on above: Performed By: #### L 500.4050, L501.2450, L100.0100 ####[facility] [address] [place], [address] Bilirubin [Mass/Vol] 0.33 mg/dL Normal 0.00-1.30 [facility] Comment on above: Performed By: #### L 500.4050, L501.2450, L100.0100 ####[facility] [address] [place], [address] BUN/CRE 9.7 RATIO Low 10-20 [facility] Comment on above: Performed By: #### L 500.4050, L501.2450, L100.0100 ####[facility] [address] [place], [address] Calcium [Mass/Vol] 9.0 mg/dL Normal 7.6-11.0 [facility] Comment on above: Performed By: #### L 500.4050, L501.2450, L100.0100 ####[facility] [address] [place], [address] Chloride [Moles/Vol] 102 mmol/L Normal 98-108 [facility] Comment on above: Performed By: #### L 500.4050, L501.2450, L100.0100 ####[facility] [address] [place], [address] CO2 [Moles/Vol] 23.3 mmol/L Normal 21.0-32.0 [facility] Comment on above: Performed By: #### L 500.4050, L501.2450, L100.0100 ####[facility] [address] [place], [address] Creatinine [Mass/Vol] 0.84 mg/dL Normal 0.70-1.20 [facility] Comment on above: Performed By: #### L 500.4050, L501.2450, L100.0100 ####[facility] [address] [place], [address] ECRCL 160.52 ml/min Normal 50-250 [facility] Comment on above: Performed By: #### L 500.4050, L501.2450, L100.0100 ####[facility] [address] [place], [address] GAP 12 Normal 5-15 [facility] Comment on above: Performed By: #### L 500.4050, L501.2450, L100.0100 ####[facility] [address] [place], [address] GFR/1.73 sq M.predicted among non-blacks MDRD (S/P/Bld) [Vol rate/Area] 99 mL/min/{1.73_m2} Normal >60 [facility] Comment on above: Result Comment: mL/m in/1.73m2 CKD-EPI Creatinine Equation (2020) Performed By: #### L 500.4050, L501.2450, L100.0100 ####[facility] [address] [place], [address] Globulin (S) [Mass/Vol] 3.8 g/dL Normal 2.2-4.2 [facility] Comment on above: Performed By: #### L 500.4050, L501.2450, L100.0100 ####[facility] [address] [place], [address] Glucose [Mass/Vol] 84 mg/dL Normal 70-99 [facility] Comment on above: Performed By: #### L 500.4050, L501.2450, L100.0100 ####[facility] [address] [place], [address] Potassium [Moles/Vol] 3.8 mmol/L Normal 3.3-5.1 [facility] Comment on above: Performed By: #### L 500.4050, L501.2450, L100.0100 ####[facility] [address] [place], [address] Sodium [Moles/Vol] 138 mmol/L Normal 133-145 [facility] Comment on above: Performed By: #### L 500.4050, L501.2450, L100.0100 ####[facility] [address] [place], [address] T PROT 8.1 g/dL Normal 5.9-8.4 [facility] Comment on above: Performed By: #### L 500.4050, L501.2450, L100.0100 ####[facility] [address] [place], [address] Urea nitrogen [Mass/Vol] 8 mg/dL Normal 4-19 [facility] Comment on above: Performed By: #### L 500.4050, L501.2450, L100.0100 ####[facility] [address] [place], [address] Emergency Department Summary on 09-29-2024 Emergency Department Summary [facility] Medical Records Department [address] [place] [address] Emergency Department Summary 09/29/24 MR#: [id number] Acct: [id number] Name: KATIE FORDE Rep #: [id number] : 2000 23 From: Shiv Roper DO PCP: Dr. Kate Silva MD Status:REG ER Location: ED HPI History of Present Illness Chief Complaint: Weakness [facility] Medical History Smoker Marfan syndrome ADHD [...] Ox 97 Oxygen Delivery Method Room Air [facility] MDM Narrative Medical decision making narrative: HISTORY [...] History obtained from others: none Consults: none [facility] Narrative: The patient was initially hemodynamically, [...] Urine is (more content not included)... Normal [facility] Eosinophil percentageOrdered By: Russell Agarwal on 09-29-2024 Eosinophils/100 WBC (Bld) 0.5 % 0-5 [facility] Epithelial cells.squamous LM Ql (Urine sed)Ordered By: Shiv Roper on 09-29-2024 Epithelial cells.squamous LM.HPF (Urine sed) [#/Area] 0 /[HPF] 5-10 [facility] Erythrocyte distribution wid th (RBC) [Ratio]Ordered By: Russell Agarwal on 09-29-2024 Erythrocyte distribution width (RBC) [Entitic vol] 39.3 fL 35.1-43.9 [facility] Erythrocyte distribution wid th ratioOrdered By: Russell Agarwal on 09-29-2024 Erythrocyte distribution width (RBC) [Ratio] 12.3 % 11.6-14.6 [facility] Erythrocyte distribution wid th standard deviationOrdered By: Russell Agarwal on 09-29-2024 Erythrocyte distribution width (RBC) [Ratio] 39.3 fl 35.1-43.9 [facility] Estimation of creatinine nicole aranceOrdered By: Russell Agarwal on 09-29-2024 Estimated Creatinine Clearance Calc 160.52 ml/min 50-250 [facility] GFR/1.73 sq M.predicted tiesha g non-blacks MDRD (S/P/Bld) [Vol rate/Area]Ordered By: Russell Agarwal on 09-29-2024 Estimated GFR (MDRD) Non-Af Amer 99 >60 [facility] Comment on above: mL/min/1.73m2 CKD-EP I Creatinine Equation (2020) Glomerular filtration rate ( GFR) estimation/1.73 sq m using serum, plasma, or whole bOrdered By: Russell Agarwal on 09-29-2024 GFR/1.73 sq M.predicted among non-blacks MDRD (S/P/Bld) [Vol rate/Area] 99 mL/min/{1.73_m2} >60 [facility] Comment on above: mL/min/1.73m2 CKD-EP I Creatinine Equation (2020) Glucose Ql (U)Ordered By: Tony Roper on 09-29-2024 Urine Glucose (UA) Normal mg/dl Normal [facility] Hematocrit Auto (Bld) [Volum e fraction]Ordered By: Russell Agarwal on 09-29-2024 Hematocrit (Bld) [Volume fraction] 42.1 % 37-47 [facility] Hemoglobin measurementOrdere d By: Russell Agarwal on 09-29-2024 Hemoglobin (Bld) [Mass/Vol] 14.6 g/dL 12.0-15.0 [facility] Immature granulocytes/100 WB C Auto (Bld)Ordered By: Russell Agarwal on 09-29-2024 Immature granulocytes/100 WBC (Bld) 0.500 % 0.0-0.9 [facility] Comment on above: IG% - Immature Granu locytes (promyelocytes, myelocytes and metamyelocytes) > 1% indicates that a LEFT SHIFT is Present. Ketones Test strip Ql (U)Ord ered By: Shiv Roper on 09-29-2024 Ketones Ql (U) Negative Negative [facility] Laboratory - Chemistry and C hemistry - challengeOrdered By: Russell Agarwal on 09-29-2024 AST [Catalytic activity/Vol] 43 U/L High <32 [facility] Lipaseon 09-29-2024 Lipase [Catalytic activity/Vol] 37 U/L Normal 13-75 [facility] Comment on above: Result Comment: Darrick lee note: LIPASE revised reference range effective 22. New Lipase methodology. Expected to produce lower values than the previous assay method. NEW Reference Range: 13 - 75 U/L Performed By: #### L 500.4050, L501.2450, L100.0100 ####[facility] [address] [place], [address] Lipase measurementOrdered By : Russell Agarwal on 09-29-2024 Lipase [Catalytic activity/Vol] 37 U/L 13-75 [facility] Comment on above: Please note:LIPASE r evised reference range effective 22. New Lipase methodology. Expected to produce lower values than the previous assay method. NEW Reference Range: 13 - 75 U/L Lymphocytes Auto (Unsp spec) [#/Vol]Ordered By: Russell Agarwal on 09-29-2024 Lymphocytes (Bld) [#/Vol] 3.89 10*3/uL 0.83-4.51 [facility] Lymphocytes/100 WBC Auto (Un sp spec)Ordered By: Russell Agarwal on 09-29-2024 Lymphocytes/100 WBC (Bld) 25.9 % 19-41 [facility] MCV (mean corpuscular volume ) determinationOrdered By: Russell Agarwal on 09-29-2024 MCV (RBC) [Entitic vol] 87.2 fL 81-99 [facility] Mean corpuscular hemoglobin (MCH) determinationOrdered By: Russell Agarwal on 09-29-2024 MCH (RBC) [Entitic mass] 30.2 pg 27.0-32.0 [facility] Mean corpuscular hemoglobin concentration (MCHC) determinationOrdered By: Russell Agarwal on 09-29-2024 MCHC (RBC) [Mass/Vol] 34.7 g/dL 32-36 [facility] Mean platelet volume determi nationOrdered By: Russell Agarwal on 09-29-2024 Platelet mean volume (Bld) [Entitic vol] 9.4 fL 6.2-12.0 [facility] Microscopic analysis of urin e for red blood cells (RBC)Ordered By: Shiv Roper on 09-29-2024 Microscopic analysis of urine for red blood cells (RBC) 10-25 SEEN /hpf 0-5 [facility] Urine RBC 10-25 SEEN /hpf 0-5 [facility] Monocyte percentageOrdered B y: Russell Agarwal on 09-29-2024 Monocytes/100 WBC (Bld) 5.8 % 0-10 [facility] Mucus LM Ql (Urine sed)Order ed By: Shiv Roper on 09-29-2024 Mucus Ql (Urine sed) 0 SEEN /hpf [facility] Neutrophil percentageOrdered By: Russell Agarwal on 09-29-2024 Neutrophils/100 WBC (Bld) 66.7 % 47-70 [facility] Nitrite Test strip Ql (U)Ord ered By: Shiv Roper on 09-29-2024 Nitrite Ql (U) Negative Negative [facility] Nucleated red blood cell per centageOrdered By: Russell Agarwal on 09-29-2024 Nucleated RBC/100 WBC (Bld) [Ratio] 0 % 0-5 [facility] Platelet countOrdered By: Aditya Agarwal on 09-29-2024 Platelets (Bld) [#/Vol] 503 10*3/uL High 150-450 [facility] Potassium (Unsp spec) [Mass/ Vol]Ordered By: Russell Agarwal on 09-29-2024 Potassium [Moles/Vol] 3.8 mmol/L 3.3-5.1 [facility] Potassium measurement (mass/ volume)Ordered By: Russell Agarwal on 09-29-2024 Potassium (Unsp spec) [Mass/Vol] 3.8 mmol/L 3.3-5.1 [facility] ,Urineon 09-29-2024 Beta HCG ( test) Ql (U) Negative Normal [facility] Comment on above: Result Comment: Very dilute urine specimens, as indicated by a low specific gravity, may not contain manufacturers service representative levels of hCG. If is still suspected, a first morning urine specimen should be collected 48 hours later and tested. Performed By: #### L 400.0001, L400.7600 ####[facility] [address] [place], [place], [id number] Protein Test strip Ql (U)Ord ered By: Shiv Roper on 09-29-2024 Protein Ql (U) 15 mg/dl High Negative [facility] RBC Auto (Bld) [#/Vol]Ordere d By: Russell Agarwal on 09-29-2024 RBC (Bld) [#/Vol] 4.83 10*6/uL 4.2-5.4 [facility] Serum creatinine measurement (mass/volume)Ordered By: Russell Agarwal on 09-29-2024 Creatinine [Mass/Vol] 0.84 mg/dL 0.70-1.20 [facility] Serum globulin measurementOr dered By: Russell Agarwal on 09-29-2024 Globulin (S) [Mass/Vol] 3.8 g/dL 2.2-4.2 [facility] Serum glucose measurement (m ass/volume)Ordered By: Russell Agarwal on 09-29-2024 Glucose [Mass/Vol] 84 mg/dL 70-99 [facility] Serum or plasma alanine nath otransferase (ALT) measurementOrdered By: Russell Agarwal on 09-29-2024 ALT [Catalytic activity/Vol] 68 U/L High <35 [facility] Serum or plasma albumin lawrence urement (mass/volume)Ordered By: Russell Agarwal on 09-29-2024 Albumin [Mass/Vol] 4.3 g/dL 3.5-5.0 [facility] Serum or plasma albumin/glob ulin mass ratioOrdered By: Russell Agarwal on 09-29-2024 Albumin/Globulin [Mass ratio] 1.2 {ratio} 0.9-2.4 [facility] Serum or plasma alkaline charisse sphatase measurementOrdered By: Russell Agarwal on 09-29-2024 ALP [Catalytic activity/Vol] 80 U/L 35-104 [facility] Serum or plasma calcium lawrence urement (mass/volume)Ordered By: Russell Agarwal on 09-29-2024 Calcium [Mass/Vol] 9.0 mg/dL 7.6-11.0 [facility] Serum or plasma urea nitroge n measurement (mass/volume)Ordered By: Russell Agarwal on 09-29-2024 Urea nitrogen [Mass/Vol] 8 mg/dL 4-19 [facility] Sodium levelOrdered By: Russell Agarwal on 09-29-2024 Sodium [Moles/Vol] 138 mmol/L 133-145 [facility] Squamous epithelial cells de tection in urine sediment by light microscopyOrdered By: Shiv Roper on 09-29-2024 Epithelial cells.squamous LM Ql (Urine sed) 0-5 SEEN /hpf 5-10 [facility] Total proteinOrdered By: Marisela Agarwal on 09-29-2024 Protein [Mass/Vol] 8.1 g/dL 5.9-8.4 [facility] Urinalysis, Completeon 09-29 EPI,SQUAMOUS 0-5 SEEN Normal 5-10 [facility] Comment on above: Order Comment: CLEAN CATCH Performed By: #### L 400.0001, L400.7600 ####[facility] [address] [place], [address] RBC 10-25 SEEN Normal 0-5 [facility] Comment on above: Order Comment: CLEAN CATCH Performed By: #### L 400.0001, L400.7600 ####[facility] [address] [place], [address] BACTERIA 0 SEEN Normal None Seen [facility] Comment on above: Order Comment: CLEAN CATCH Performed By: #### L 400.0001, L400.7600 ####[facility] [address] [place], [address] Mucus Ql (Urine sed) 0 SEEN Normal [facility] Comment on above: Order Comment: CLEAN CATCH Performed By: #### L 400.0001, L400.7600 ####[facility] [address] [place], [address] WBC 0 SEEN Normal 0-5 [facility] Comment on above: Order Comment: CLEAN CATCH Performed By: #### L 400.0001, L400.7600 ####[facility] [address] [place], [address] Urine blood detectionOrdered By: Shiv Roper on 09-29-2024 Urine Occult Blood 250 /ul High Negative [facility] Urine clarityOrdered By: Amy Roper on 09-29-2024 Clarity (U) Clear Clear [facility] Urine color determinationOrd ered By: Shiv Roper on 09-29-2024 Color (U) Yellow Yellow [facility] Urine glucose detectionOrder ed By: Shiv Roper on 09-29-2024 Glucose Ql (U) Normal mg/dl Normal [facility] Urine leukocyte esterase det ection by dipstickOrdered By: Shiv Roper on 09-29-2024 Leukocyte esterase Test strip Ql (U) Negative Negative [facility] Urine pHOrdered By: Shiv hall on 09-29-2024 pH (U) 7.0 [pH] 5.0 - 8.0 [facility] Urine testOrdered By: Shiv Roper on 09-29-2024 HCG ( test) Ql (U) Negative [facility] Comment on above: Very dilute urine sp ecimens, as indicated by a low specificgravity, may not contain manufacturers service representative levels of hCG. If is still suspected, a first morning urinespecimen should be collected 48 hours later and tested. Urine sediment bacteria coun t by microscopy (number/high power field)Ordered By: Shiv Roper on 09-29-2024 Bacteria LM.HPF (Urine sed) [#/Area] 0 /[HPF] None Seen [facility] Urine specific gravity measu rementOrdered By: Shiv Roper on 09-29-2024 Specific gravity (U) [Rel density] 1.010 1.002-1.030 [facility] Urine urobilinogen measureme ntOrdered By: Shiv Roper on 09-29-2024 Urobilinogen Ql (U) Normal mg/dl Normal [facility] Urobilinogen Ql (U)Ordered B y: Shiv Roper on 09-29-2024 Urine Urobilinogen Normal mg/dl Normal [facility] White blood cell (WBC) count Ordered By: Russell Agarwal on 09-29-2024 WBC (Bld) [#/Vol] 15.0 10*3/uL High 4.4-11.0 [facility] White blood cell countOrdere d By: Shiv Roper on 09-29-2024 Urine WBC 0 SEEN /hpf 0-5 [facility] White blood cell count 0 SEEN /hpf 0-5 [facility] CNOVon 08-30-2024 CNOV Office Visit (CARDWS ) ----- KATIE FORDE ([id number]) 2000 F Date Time Provider Department 08/30/24 1:20 PM SANTI MCALLISTER During your visit today, we recorded the following information about you: Pulse Respiration Blood pressure Weight 93/minute 14/minute 118/74 135.6 kg Height Last Period 1.829 m 08/06/24 Santi Mcallister MD 08/30/2024 2:34 PM Signed Santi Mcallister MD Interventional Cardiology [address] [phone] Chief Complaint Patient presents with: Follow Up: [...] Meter 1 (more content not included)... Normal [facility] WEC40ct 08-30-2024 ECG01 Ventricular Rate : 9 0 BPM Atrial Rate : 90 BPM P-R Interval : 150 ms QRS Duration : 76 ms Q-T Interval : 374 ms QTC Calculation(Bazett) : 457 ms Calculated P [place] : 58 degrees Calculated R [place] : 37 degrees Calculated T [place] : 53 degrees NORMAL SINUS RHYTHM NORMAL ECG Confirmed by MD SANTOS QARAB ([id number]) on 08/31/2024 12:57:53 PM NAME : KATIE FORDE PID : [id number] : 2000 Gender : Female Race : ORD : Procedure Date : Aug 30 2024 13:24:52 Edit Date : Aug 31 2024 12:57:56 Diagnosis: NORMAL SINUS RHYTHM NORMAL ECG Confirmed by MD SANTOS QARAB ([id number]) on 08/31/2024 12:57:53 PM Test Reason : [facility] By : MD SANTOS QARAB Edited By : MD SANTOS QARAB Referred By : , Acquired by : Nuris shipley [facility] CNOVon 08-24-2024 [facility] KATIE FORDE ([id number]) 2000 F Date Time Provider Department 08/24/24 10:15 AM RADHA LONG [facility] During your visit today, we recorded the following information about you: Temperature Pulse Respiration Blood pressure 98 degrees 104/minute 16/minute 118/78 Weight 136.7 kg Radha Long PA-C 08/24/2024 10:36 AM Signed This note was created using [employer]. Subjective Katie Forde is a 23 year [...] 2024. - (more content not included)... Normal [facility] CBC panel Auto (Bld)on 08-09 Erythrocyte distribution width (RBC) [Ratio] 12.4 % 11.5 - 15.0 % [facility] Hematocrit (Bld) [Volume fraction] 43.7 % 36.0 - 46.0 % [facility] Hemoglobin (Bld) [Mass/Vol] 14.6 g/dL 11.5 - 15.5 g/dL [facility] Interpretation and review of laboratory results Abnormal [facility] MCH (RBC) [Entitic mass] 29.9 pg 26.0 - 34.0 pg [facility] MCHC (RBC) [Mass/Vol] 33.4 g/dL 30.5 - 36.0 g/dL [facility] MCV (RBC) [Entitic vol] 89.5 fL 80.0 - 100.0 fL [facility] Nucleated RBC (Bld) [#/Vol] NINF [facility] Platelet mean volume (Bld) [Entitic vol] 10.1 fL 9.0 - 12.7 fL [facility] Platelets (Bld) [#/Vol] 488 10*3/uL High [facility] RBC (Bld) [#/Vol] 4.88 10*6/uL 3.90 - 5.2 0 m/uL [facility] WBC (Bld) [#/Vol] 12.44 10*3/uL High [facility] Erythrocyte distribution width (RBC) [Ratio] 12.4 % Normal 11.5-15.0 [facility] Comment on above: Order Comment: Speci men Type: BLOOD SPECIMENOrdering Facility: [facility] Address: [address] [place] [address] Performed By: #### 5 8410-2, 4537-7 ####[facility] LABIA [id number] [place] [address] [place] Hematocrit (Bld) [Volume fraction] 43.7 % Normal 36.0-46.0 [facility] Comment on above: Order Comment: Speci men Type: BLOOD SPECIMENOrdering Facility: [facility] Address: [address] [place] [address] Performed By: #### 5 8410-2, 4537-7 ####[facility] LABIA [id number] [place] [address] [place] Hemoglobin (Bld) [Mass/Vol] 14.6 g/dL Normal 11.5-15.5 [facility] Comment on above: Order Comment: Speci men Type: BLOOD SPECIMENOrdering Facility: [facility] Address: [address] [place] [address] Performed By: #### 5 8410-2, 4537-7 ####[facility] LABCLIA [id number] [place] [address] [place] MCH (RBC) [Entitic mass] 29.9 pg Normal 26.0-34.0 [facility] Comment on above: Order Comment: Speci men Type: BLOOD SPECIMENOrdering Facility: [facility] Address: [address] [place] [address] Performed By: #### 5 8410-2, 4537-7 ####[facility] LABCLIA [id number] [place] [address] [place] MCHC (RBC) [Mass/Vol] 33.4 g/dL Normal 30.5-36.0 [facility] Comment on above: Order Comment: Speci men Type: BLOOD SPECIMENOrdering Facility: [facility] Address: [address] [place] [address] Performed By: #### 5 8410-2, 4537-7 ####[facility] LABIA [id number] [place] [address] [place] MCV (RBC) [Entitic vol] 89.5 fL Normal 80.0-100.0 [facility] Comment on above: Order Comment: Speci men Type: BLOOD SPECIMENOrdering Facility: [facility] Address: [address] [place] [address] Performed By: #### 5 8410-2, 4537-7 ####[facility] LABIA [id number] [place] [address] [place] Nucleated RBC (Bld) [#/Vol] 10*3/uL Normal <0.01 [facility] Comment on above: Order Comment: Speci men Type: BLOOD SPECIMENOrdering Facility: [facility] Address: [address] [place] [address] Performed By: #### 5 8410-2, 4537-7 ####[facility] LABIA [id number] [place] [address] [place] Platelet mean volume (Bld) [Entitic vol] 10.1 fL Normal 9.0-12.7 [facility] Comment on above: Order Comment: Speci men Type: BLOOD SPECIMENOrdering Facility: [facility] Address: [address] [place] [address] Performed By: #### 5 8410-2, 4537-7 ####[facility] LABIA [id number] [place] [address] [place] Platelets (Bld) [#/Vol] 488 10*3/uL High 150-400 [facility] Comment on above: Order Comment: Speci men Type: BLOOD SPECIMENOrdering Facility: [facility] Address: [address] [place] [address] Performed By: #### 5 8410-2, 4537-7 ####[facility] LABIA [id number] [place] [address] [place] RBC (Bld) [#/Vol] 4.88 10*6/uL Normal 3.90-5.20 [facility] Comment on above: Order Comment: Speci men Type: BLOOD SPECIMENOrdering Facility: [facility] Address: [address] [place] [address] Performed By: #### 5 8410-2, 4537-7 ####[facility] [id number] [place] [address] [place] WBC (Bld) [#/Vol] 12.44 10*3/uL High 3.70-11.00 [facility] Comment on above: Order Comment: Speci men Type: BLOOD SPECIMENOrdering Facility: [facility] Address: [address] [place] [address] Performed By: #### 5 8410-2, 4537-7 ####[facility] [id number] [place] [address] [place] CK SerPl-cCncon 08-09-2024 CK [Catalytic activity/Vol] 76 U/L Normal 42-196 [facility] Comment on above: Order Comment: Speci men Type: BLOOD SPECIMENOrdering Facility: [facility] Address: [address] [place] [address] Performed By: #### 1 988-5, 2157-6, 54950-1 ####[facility] COLLIN [id number] [place] [id number] [id number] [place] CNOVon 08-09-2024 CNOV Office Visit (INTMWS ) ----- KATIE FORDE ([id number]) 2000 F Date Time Provider Department 08/09/24 10:20 AM KATE SILVA INTMWS During your visit today, we recorded the following information about you: Pulse Respiration Blood pressure Weight 86/minute 16/minute 103/61 136 kg Kate Silva MD 08/09/2024 11:21 PM Signed This note was created using [employer] Vino. Subjective Katie Forde is a 23 year [...] 17 but not filled by her pharmacy, [facility]. She also requests medication for nausea and eczema. She is due for a Pap smear and a vulvar biopsy due to recurrent yeast infections, as recommended by her user experience designer. PAST MEDICAL HISTORY Diagnosis Date ADHD (attention [...] for nausea/vo (more content not included)... Normal [facility] CRP SerPl-ncon 08-09-2024 CRP [Mass/Vol] 1.6 mg/dL High <0.9 [facility] Comment on above: Order Comment: Speci men Type: BLOOD SPECIMENOrdering Facility: [facility] Address: [address] [place] [address] Performed By: #### 1 988-5, 2157-6, 68845-6 ####[facility] LABCLIA [id number] [place] [address] [place] Comprehensive metabolic 2000 panelon 08-09-2024 Albumin [Mass/Vol] 4.2 g/dL Normal 3.9-4.9 [facility] Comment on above: Order Comment: Speci men Type: BLOOD SPECIMENOrdering Facility: [facility] Address: [address] [place] [address] Performed By: #### 1 988-5, 2157-6, 21708-0 ####[facility] LABCLIA [id number] [place] [address] [place] ALP [Catalytic activity/Vol] 75 U/L Normal 34-123 [facility] Comment on above: Order Comment: Speci men Type: BLOOD SPECIMENOrdering Facility: [facility] Address: [address] [place] [address] Performed By: #### 1 988-5, 6, ####[facility] LABCLIA [id number] [place] [address] [place] ALT [Catalytic activity/Vol] 50 U/L High 7-38 [facility] Comment on above: Order Comment: Speci men Type: BLOOD SPECIMENOrdering Facility: [facility] Address: [address] [place] [address] Performed By: #### 1 988-5, 2156-11, ####[facility] LABCLIA [id number] [place] [address] [place] Anion gap [Moles/Vol] 12 mmol/L Normal 8-15 [facility] Comment on above: Order Comment: Speci men Type: BLOOD SPECIMENOrdering Facility: [facility] Address: [address] [place] [address] Performed By: #### 1 988-5, 2156-11, ####[facility] LABCLIA [id number] [place] [address] [place] AST [Catalytic activity/Vol] 41 U/L High 13-35 [facility] Comment on above: Order Comment: Speci men Type: BLOOD SPECIMENOrdering Facility: [facility] Address: [address] [place] [address] Performed By: #### 1 988-5, 2156-11, ####[facility] LABCLIA [id number] [place] [address] [place] Bilirubin [Mass/Vol] 0.3 mg/dL Normal 0.2-1.3 [facility] Comment on above: Order Comment: Speci men Type: BLOOD SPECIMENOrdering Facility: [facility] Address: [address] [place] [address] Performed By: #### 1 988-5, 2156-11, ####[facility] LABCLIA [id number] [facility] [place] [address] [place] Calcium [Mass/Vol] 9.1 mg/dL Normal 8.5-10.2 [facility] Comment on above: Order Comment: Speci men Type: BLOOD SPECIMENOrdering Facility: [facility] Address: [address] [place] [address] Performed By: #### 1 988-5, 2156-11, ####[facility] LABCLIA [id number] [place] [address] [place] Chloride [Moles/Vol] 104 mmol/L Normal 98-107 [facility] Comment on above: Order Comment: Speci men Type: BLOOD SPECIMENOrdering Facility: [facility] Address: [address] [place] [address] Performed By: #### 1 988-5, 2156-11, ####[facility] LABCLIA [id number] [place] [address] [place] CO2 [Moles/Vol] 21 mmol/L Low 22-30 [facility] Comment on above: Order Comment: Speci men Type: BLOOD SPECIMENOrdering Facility: [facility] Address: [address] [place] [address] Performed By: #### 1 988-5, 2156-11, ####[facility] LABCLIA [id number] [facility] [address] [address] [place] Creatinine [Mass/Vol] 0.80 mg/dL Normal 0.58-0.96 [facility] Comment on above: Order Comment: Speci men Type: BLOOD SPECIMENOrdering Facility: [facility] Address: [address] [place] [address] Performed By: #### 1 988-5, 2157-6, 38975-5 ####[facility] LABIA [id number] [place] [address] [place] Creatinine and Glomerular filtration rate.predicted panel (S/P/Bld) 105 mL/min/1.73m??? Normal >=60 [facility] Comment on above: Order Comment: Lore buitrago Type: BLOOD SPECIMENOrdering Facility: [facility] Address: [address] [place] [address] Result Comment: Shantal mated Glomerular Filtration Rate [...] GFR. Performed By: #### 1 988-5, 2157-6, 57120-5 ####[facility] LABIA [id number] [place] [id number] [place] Glucose [Mass/Vol] 62 mg/dL Low 74-99 [facility] Comment on above: Order Comment: Lore buitrago Type: BLOOD SPECIMENOrdering Facility: [facility] Address: [address] [place] [address] Result Comment: The [place] Diabetes Association (ADA) provides guidance for cutoff [...] Standards of Medical Care in Diabetes 2016, [place] Diabetes Association. Diabetes Care. 2016.39(Suppl 1). Performed By: #### 1 988-5, 2156-11, 07487-8 ####[facility] LABCLIA [id number] [address] [address] [place] Potassium [Moles/Vol] 4.1 mmol/L Normal 3.7-5.1 [facility] Comment on above: Order Comment: Speci men Type: BLOOD SPECIMENOrdering Facility: [facility] Address: [address] [place] [address] Performed By: #### 1 988-5, 2156-11, ####[facility] LABCLIA [id number] [address] [address] [place] Protein [Mass/Vol] 7.6 g/dL Normal 6.3-8.0 [facility] Comment on above: Order Comment: Speci men Type: BLOOD SPECIMENOrdering Facility: [facility] Address: [address] [place] [address] Performed By: #### 1 988-5, 2156-11, ####[facility] LABCLIA [id number] [address] [address] [place] Sodium [Moles/Vol] 137 mmol/L Normal 136-144 [facility] Comment on above: Order Comment: Speci men Type: BLOOD SPECIMENOrdering Facility: [facility] Address: [address] [place] [address] Performed By: #### 1 988-5, 2156-11, ####[facility] LABCLIA [id number] [address] [address] [place] Urea nitrogen [Mass/Vol] 8 mg/dL Normal 7-21 [facility] Comment on above: Order Comment: Speci men Type: BLOOD SPECIMENOrdering Facility: [facility] Address: [address] [place] [address] Performed By: #### 1 988-5, 2157-6, 12351-5 ####[facility] LABIA [id number] [place] [address] [place] ESR Westergren method (Bld) [Velocity]on 08-09-2024 ESR (Bld) [Velocity] 32 mm/h High [facility] Interpretation and review of laboratory results Abnormal [facility] ESR (Bld) [Velocity] 32 mm/h High 0-[facility] Comment on above: Order Comment: Kareni men Type: BLOOD SPECIMENOrdering Facility: [facility] Address: [address] [place] [address] Performed By: #### 5 8410-2, 4537-7 ####[facility] LABIA [id number] [address] [place] HbA1c (Bld)on 08-09-2024 Average glucose Estimated from glycated hemoglobin (Bld) [Mass/Vol] 94 mg/dL Normal [facility] Comment on above: Order Comment: Lore buitrago Type: BLOOD SPECIMENOrdering Facility: [facility] Address: [address] [place] [address] Result Comment: eAG: (Estimated average glucose) is a calculated value from HgbA1c and is manufacturers service representative of the average blood glucose level in the last 2-3 month period. Performed By: #### 5 5454-3 ####[facility] [id number] [place] [address] [place] HbA1c (Bld) [Mass fraction] 4.9 % Normal 4.3-5.6 [facility] Comment on above: Order Comment: Lore buitrago Type: BLOOD SPECIMENOrdering Facility: [facility] Address: [address] [place] [address] Result Comment: [place] Diabetes Association guidelines indicate that patients with HgbA1c in the range 5.7-6.4% are at increased risk for development of diabetes, and intervention by lifestyle modification may be beneficial. HgbA1c greater or equal to 6.5% is considered diagnostic of diabetes. Performed By: #### 5 5454-3 ####[facility] COLLIN [id number] [facility] [id number] [place] [address] [place] CNOVon 05-19-2024 CNOV Office Visit (UCWSTR ) ----- KATIE FORDE ([id number]) 2000 F Date Time Provider Department 05/19/24 9:45 AM ARTHUR JOSEPH WSTR During your visit today, we recorded the following information about you: Temperature Pulse Respiration Blood pressure 97.6 degrees 97/minute 18/minute 120/82 Weight 137.6 kg Arthur Joseph PA-C 05/19/2024 12:09 PM Signed This note was created using [employer] V[employer]. Subjective Katie Forde is a 23 year [...] and externa (more content not included)... Normal [facility] BACTERIAL VAGINOSIS NAATon 1 07-12-2023 Lactobacillus crispatus+gasseri+agustina senii + Gardnerella vaginalis + Atopobium vaginae rRNA EDMOND+probe Ql (Vag fld) Negative Normal Negative for bacterial vaginosis [facility] Comment on above: Order Comment: Speci men Type: SWABOrdering Facility: [facility] Address: [address] [place] [address] Performed By: #### C VTV, BVAMP ####[facility] LABCLIA [id number] [place] [address] [place] YEIMY/TRICHOMONAS NAATon 07-12-2023 C. glabrata RNA EDMOND+probe Ql (Vag fld) Negative Normal Negative for Yeimy glabrata [facility] Comment on above: Order Comment: Speci men Type: SWABOrdering Facility: [facility] Address: [address] [place] [address] Performed By: #### C VTV, BVAMP ####[facility] LABCLIA [id number] [place] [address] [place] Yeimy sp DNA EDMOND+probe Ql (Vag fld) Negative Normal Negative for Yeimy species [facility] Comment on above: Order Comment: Speci men Type: SWABOrdering Facility: [facility] Address: [address] [place] [address] Performed By: #### C VTV, BVAMP ####[facility] LABCLIA [id number] [address] [place] T. vaginalis DNA EDMOND+probe Ql (Unsp spec) Negative Normal Negative for Trichomonas vaginalis by amplification [facility] Comment on above: Order Comment: Speci men Type: SWABOrdering Facility: [facility] Address: [address] [place] [address] Performed By: #### C VTV, BVAMP ####[facility] LABCLIA [id number] [address] [place] CNOVon 05-12-2024 CNOV Office Visit (OBGYWM ) ----- KATIE FORDE ([id number]) 2000 F Date Time Provider Department 05/12/24 4:00 PM REBECA BEASLEY During your visit today, we recorded the following information about you: Blood pressure Weight 120/80 136.6 kg Rebeca Beasley APRN.CNM 05/12/2024 4:49 PM Signed [employer] offered: Patient declines. Katiealden Forde is a [...] L0 SAB0 IAB0 Ectopic0 Multiple0 Live Births0 Tower Technician History LMP: 03/31/2024 (Exact Date), Having periods Age at Menarche: Age at First : Age at Menopause: Tower Technician History Comments: Sexual Activity: Not Currently; Male [...] urinary urge (more content not included)... Normal [facility] UA DIP, URINE (POC)on 2023 BILIRUBIN UA (POCT) Negative Negative [facility] CLARITY UA (POCT) Slightly Cloudy Cl [facility] COLOR UA (POCT) Yellow [facility] GLUCOSE UA (POCT) Negative Negative mg/dL [facility] Hemoglobin Ql (U) Trace-lysed Abnormal Negative [facility] Interpretation and review of laboratory results Abnormal [facility] KETONE UA (POCT) Negative Negative mg/dL [facility] LEUKOCYTES UA (POCT) Trace Abnormal Negative [facility] NITRITE UA (POCT) Negative Negative [facility] PH UA (POCT) 5.5 4.5 - 8.0 [facility] Protein Ql (U) Negative Negative mg/dL [facility] SPECIFIC GRAVITY UA (POCT) >=1.030 1.005 - 1.030 [facility] UROBILINOGEN UA (POCT) 0.2 Normal E.U./dL [facility] Location:[address], [address] [place] [address] POINT OF CARE [facility] 17-Hydroxyprogesterone [Mass /Vol]on 01-29-2024 [facility] HYDROXYPROGESTERONE-17on 17-Hydroxyprogesteron e [Mass/Vol] 21.22 ng/dL NINF - 206.00 ng/dL [facility] Comment on above: INTERPRETIVE INFORMATION for 17-Hydroxyprogesterone in females: Follicular 15 to 70 ng/dL Luteal 35 to 290 ng/dL REFERENCE INTERVAL: 17-Hydroxyprogesterone Qnt, HPLC-MS/MS Access complete set of age- and/or gender-specific reference intervals for this test in the [facility] Test Directory (Moment). This test was developed and its performance characteristics determined by [facility]. It has not been cleared or approved by the US Food and Drug Administration. This test was performed in a CLIA certified laboratory and is intended for clinical purposes. Performed By: [facility] [address] [place] [id number] Heel Cover Softener: Yared Curry MD, PhD CLIA Number: [id number] DHEA-S [facility] 01-24-2024 DHEA-S [Mass/Vol] 139.2 ug/dL 98.8 - 340 .0 ug/dL [facility] Comment on above: Reference ranges are age and gender specific. For additional information, reference range tables can be found in the laboratory test directory. The normal values are based on the following source: Dehydroepiandrosterone sulfate (DHEA S) [package insert V 17.0 Thai]. [employer], [place], [place]: January 2013. Interpretation and review of laboratory results Normal [facility] ESTRADIOL-17B BLDon 01-24-20 24 E2 [Mass/Vol] 126 pg/mL [facility] Comment on above: This test is not nau table for patients receiving treatment with the drug Fulvestrant (Faslodex). The drug causes an interference leading to falsely elevated estradiol results. Menstrual cycle Estradiol reference ranges: Follicular : < 234 pg/mL Ovulation : 41 to 398 pg/mL Luteal : < 342 pg/mL Estradiol reference ranges vary by gestational period: First trimester : 154 to 3243 pg/mL Second trimester : 1561 to 15697 pg/mL Third trimester : 8285 to >31410 pg/mL Post-menopausal Estradiol reference range: < 41 pg/mL Reference: 1. Estradiol - E2 (Estradiol III) [package insert V 3.0 Thai]. [employer], [place], [place], November 2015. FOLLICLE STIMULATING HORMONE on 01-24-2024 Follitropin Qn 2.8 m[IU]/mL See comment mIU/mL [facility] Comment on above: Reference range: Follicular: 3.5-12.5 mIU/mL Ovulation: 4.7-21.5 mIU/mL Luteal: 1.7-7.7 mIU/mL Postmenopausal: 25.8-134.8 mIU/mL HbA1c (Bld)on 01-24-2024 Average glucose Estimated from glycated hemoglobin (Bld) [Mass/Vol] 143 mg/dL [facility] Comment on above: eAG: (Estimated aver age glucose) is a calculated value from HgbA1c and is manufacturers service representative of the average blood glucose level in the last 2-3 month period. HbA1c (Bld) [Mass fraction] 6.6 % High 4.3 - 5.6 % [facility] Comment on above: [place] [employer] As sociation guidelines indicate that patients with HgbA1c in the range 5.7-6.4% are at increased risk for development of diabetes, and intervention by lifestyle modification may be beneficial. HgbA1c greater or equal to 6.5% is considered diagnostic of diabetes. Interpretation and review of laboratory results Abnormal [facility] LUTEINIZING HORMONEon 2023 Lutropin Qn 5.5 m[IU]/mL See comment mIU/mL [facility] Comment on above: Reference range: Follicular: 2.4-12.6 mIU/mL Midcycle: 14.0-95.6 mIU/mL Luteal: 1.0-11.4 mIU/mL Post Leeanne: 7.7-58.5 mIU/mL No Panel Informationon 01-23 [facility] Interpretation and review of laboratory results Normal [facility] PROLACTINon 01-24-2024 Prolactin [Mass/Vol] 23.4 ng/mL 4.5 - 2 6.8 ng/mL [facility] Comment on above: Prolactin test is pe rformed using the [employer] Electrochemiluminescence Immunoassay method. Results obtained with different methods or kits cannot be used interchangeably. THYROID STIMULATING HORMONEo n 01-24-2024 TSH Qn 0.969 m[IU]/L [facility] Comment on above: If the patient [...] Escobar, et al. 2017 Guidelines of the [place] [employer] for the Diagnosis and Management of Thyroid Disease during and the . Thyroid, 2017:27:3:315-389. [place] Pelvison 01-23-2024 [facility] Radiology Study observation (narrative) [facility] XR Foot - left AP and Latera l and obliqueon 12-22-2023 IMPRESSION: No acute osseous abnormality Sheep Shearer: SILVIANO Transcribe Date/Time: Dec 22 2023 4:56P Dictated by : STEPHANI VEGA MD This examination was interpreted and the report reviewed and electronically signed by: STEPHANI VEGA MD on Dec 22 2023 4:58PM [facility] DIVISION OF RADIOLOGY * * *Final Report* [...] spaces are maintained. DIVISION OF RADIOLOGY Provider, [facility] - 12/22/2023 * * *Final Report* [...] maintained. IMPRESSION IMPRESSION: No acute osseous abnormality Sheep Shearer: SILVIANO Transcribe Date/Time: Dec 22 2023 4:56P Dictated by : STEPHANI VEGA MD This examination was interpreted and the report reviewed and electronically signed by: STEPHANI VEGA MD on Dec 22 2023 4:58PM [facility] Radiology Study observation (narrative) [facility] XR Foot - left AP and Latera l and obliqueOrdered By: Ccf Provider on 12-22-2023 [facility] XR Hand - right PA and Later al and Obliqueon 12-17-2023 IMPRESSION: NORMAL APPEARANCE OF THE RIGHT HAND Sheep Shearer: PSCB Transcribe Date/Time: Dec 17 2023 10:37A Dictated by : LOIDA RECIO MD This examination was interpreted and the report reviewed and electronically signed by: LOIDA RECIO MD on Dec 17 2023 10:39AM [facility] DIVISION OF RADIOLOGY * * *Final Report* [...] spaces are maintained. DIVISION OF RADIOLOGY Provider, [facility] - 12/17/2023 * * *Final Report* [...] IMPRESSION: NORMAL APPEARANCE OF THE RIGHT HAND Sheep Shearer: PSCB Transcribe Date/Time: Dec 17 2023 10:37A Dictated by : LOIDA RECIO MD This examination was interpreted and the report reviewed and electronically signed by: LOIDA RECIO MD on Dec 17 2023 10:39AM EST [facility] Radiology Study observation (narrative) [facility] XR Hand - right PA and Later al and ObliqueOrdered By: Ccf Provider on 12-17-2023 [facility] BRIEF OP NOTon 11-21-2023 BRIEF OP NOT HNO ID: [id number] Author: RASTA DUMONT MD Service: Interventional Radiology Author Type: Physician Type: Brief Op Note Filed: 11/21/2023 11:09 Note Text: INTERVENTIONAL RADIOLOGY POST PROCEDURE NOTE DATE: 11/21/23 NAME: Katie Forde LOG ID: [id number] Pre-Procedure Diagnosis: NAFLD Desk Attendant: Surgeon(s) and Role: * Rasta Dumont MD, [...] see Radiology report for complete information [facility] HISTORY PHYSICALon HISTORY PHYSICAL HNO ID: [id number] Author: RASTA DUMONT MD Service: Interventional Radiology [...] can be found in the attached. [facility] SURGICAL PATHOLOGYon 024 CASE REPORT [facility] Comment on above: Order Comment: Lore buitrago Type: TISSUE SPECIMEN Ordering Facility: [facility] Address: [address] [place] [address] Result Comment: Surg ica Pathology Report Case: [id number] Authorizing Provider: Rasta Dumont, Collected: 11/21/2023 10:53 AM MD MARCELA Ordering Location: [facility] Received: 11/21/2023 12:44 PM INTERVENTIONAL RADIOLOGY Pathologist: Scott Worthy MD Specimen: Liver, Biopsy Performed By: #### S #### [facility] CLIA [id number] [address] STATES OF [facility] CLINICAL HISTORY NAFLD [facility] Comment on above: Order Comment: Lore buitrago Type: TISSUE SPECIMEN Ordering Facility: [facility] Address: [address] [place] [address] Performed By: #### S #### [facility] CLIA [id number] [address] [place] [address] DIAGNOSIS COMMENT [facility] Comment on above: Order Comment: Lore [facility] Type: TISSUE SPECIMEN Ordering Facility: [facility] Address: [address] [place] [address] Result Comment: The patient is a 22-year-old [...] no evidence of increased fibrosis (stage 0). Collision Center Manager slides were reviewed by Dr. Zhen Eddy who agrees with this assessment. Performed By: #### S #### [facility] CLIA [id number] [address] [place] [address] FINAL DIAGNOSIS [facility] Comment on above: Order Comment: Lore buitrago Type: TISSUE SPECIMEN Ordering Facility: [facility] Address: [address] [place] [address] Result Comment: Abbey lópez, core biopsy: - Steatohepatitis pattern of injury. No evidence of fibrosis. See comment. Performed By: #### S #### [facility] CLIA [id number] [address] [place] [address] FINAL PERFORMING LAB Normal [facility] Comment on above: Order Comment: Specmirta buitrago Type: TISSUE SPECIMEN Ordering Facility: [facility] Address: [address] [place] [address] Result Comment: Diag nostic interpretation performed at [facility], [address] [place] [address] CLIA# [id number] Heel Cover Softener: Scott Worthy M.D. Performed By: #### S #### [facility] CLIA [id number] [address] [place] [address] GROSS DESCRIPTION [facility] Comment on above: Order Comment: [facility] Type: TISSUE SPECIMEN Ordering Facility: [facility] Address: [address] [place] [address] Result Comment: Abbey lópez, Biopsy Received in formalin labeled as ``liver biopsy? are 3 fragmented segments of cylindrical tissue ranging from 1.6 to 2.2 cm in length with a thickness of 0.1 cm, leon and of a soft and slightly rubbery consistency. Totally submitted in formalin in 1 cassette. Gross examination performed at [facility], [address] [place] [address] CLIA# [id number] RSA November 21, 2023 3:24 PM Performed By: #### S #### [facility] CLIA [id number] [address] [place] [address] US BIOPSY LIVERon 11-21-2023 US BIOPSY LIVER * * *Final Report* * * DATE OF EXAM: Nov 21 2023 11:03AM [facility] 1073 - US BIOPSY LIVER [...] as described above. 2. No immediate complications. Sheep Shearer: PSCB Transcribe Date/Time: Nov 22 2023 12:44A Dictated by : RASTA DUMONT MD This examination was interpreted and the report reviewed and electronically signed by: RASTA DUMONT MD on Nov 22 2023 1:15AM EST [id number] [facility] STREP A MOLECULAR (POC)on Procedural Control Valid [facility] Strep A (POCT) Negative Negative [facility] COVID & INFLUENZA A/B & RSV NAAT, ROUTINEon 08-18-2023 FLUAV RNA EDMOND+probe Ql (Unsp spec) Not detected Not Detected [facility] FLUBV RNA EDMOND+probe Ql (Unsp spec) Not detected Not Detected [facility] RSV A RNA EDMOND+probe Ql (Unsp spec) Not detected Not Detected [facility] SARS-CoV-2 (COVID-19) RNA EDMOND+probe Ql (Resp) Detected Abnormal See comment [facility] BACTERIAL VAGINOSIS NAATon 0 08-11-2023 Lactobacillus crispatus+gasseri+agustina senii + Gardnerella vaginalis + Atopobium vaginae rRNA EDMOND+probe Ql (Vag fld) Negative Negative for bacterial vaginosis [facility] YEIMY/TRICHOMONAS NAATon 0 08-11-2023 C. glabrata RNA EDMOND+probe Ql (Vag fld) Negative Negative for Yeimy glabrata [facility] Yeimy sp DNA EDMOND+probe Ql (Vag fld) Positive Abnormal Negative for Yeimy species [facility] T. vaginalis DNA EDMOND+probe Ql (Unsp spec) Negative Negative for Trichomonas vaginalis by amplification [facility] No Panel Informationon 04-28 [facility] US FEMALE PELVIS TRANSVAGon 04-17-2023 [facility] STREP A MOLECULAR (POC)on Procedural Control Valid [facility] Strep A (POCT) Negative Negative [facility] SPIROMETRY WITH DILATOR IF O BSTRUCTEDon 11-05-2022 [id number]% POST (L/S) 2.91 L/S [facility] QHA57-11% PRE (L/S) 2.83 L/S [facility] FEV1 PRE (L) 3.49 L [facility] FEV1/FVC POST (%) 76 % [facility] FEV1/FVC PRE (%) 73 % [facility] FEV1_POST (L) 3.50 L [facility] FVC POST (L) 4.61 L [facility] FVC PRE (L) 4.74 L [facility] PEF POST (L/S) 5.45 L/S [facility] PEF PRE (L/S) 5.78 L/S [facility] CTA CORONARY W IVCONon 10-31 CTA CORONARY W IVCON * * *Final Report* * * DATE OF EXAM: Oct 31 2022 2:04PM [facility] 0470 - CTA CORONARY W IVCON / PROCEDURE REASON: R07.2-Precordial pain * * * * Physician Interpretation * * * * Coronary CTA dated 10/31/2022 2:04 PM Comparison: None History: 21 years old Female with Marfan syndrome referred for index assessment of thoracic aorta, was protocolled as coronary CTA. Technique: Multi-detector CT technology was employed (Kalion Ascend scanner). Spiral imaging with retrospective gating [...] as dissection, intramural hematoma, or contained rupture. Collision Center Manager dimensions of the thoracic aorta are as [...] anomaly. No evidence of coronary artery atherosclerosis. Sheep Shearer: PSCB Transcribe Date/Time: Oct 31 2022 3:03P Dictated by : CLARISA ADAMES MD This examination was interpreted and the report reviewed and electronically signed by: CLARISA ADAMES MD on Oct 31 2022 5:33PM EST [id number] [facility] NURSING PROGon 10-31-2022 NURSING PROG HNO ID: [id number] Author: Karma Buchanan RN Service: Radiology Author [...] Buchanan RN October 31, 2022 2:22 PM [facility] STREP A MOLECULAR (POC)on Procedural Control Valid [facility] Strep A (POCT) Negative Negative [facility] Influenza virus A and B RNA and SARS-CoV-2 (COVID-19) N gene panel EDMOND+probe (Resp)on 07-09-2022 FLUAV RNA EDMOND+probe Ql (Unsp spec) Negative Negative for Influenza A by RT-PCR [facility] FLUBV RNA EDMOND+probe Ql (Unsp spec) Negative Negative for Influenza B by RT-PCR [facility] SARS-CoV-2 (COVID-19) RNA EDMOND+probe Ql (Resp) SARS-CoV-2 (Agent of COVID-19) Not Detected by RT-PCR or equivalent method. Not Detected [facility] US IMAGING GUIDED BIOPSY JERILYN Jeremy 07-05-2022 [facility] US ABD RT UPPER QUADRANTon 1 [facility] Absolute lymphocyte counton 04-11-2022 Lymphocytes Auto (Unsp spec) [#/Vol] 5.53 10*3/uL 0.83-4.51 [facility] Work Phone: Basophil percentageon 2021 Basophils/100 WBC (Bld) 0.7 % 0-1 [facility] Work Phone: Bilirubin [Mass/Vol] 0.30 mg/dL 0.20-1.00 [facility] Work Phone: Comment on above: For patients on eltr ombopag therapy, use of Dimension [place] TBIL is not recommended. Chloride [Moles/Vol] 106 mmol/L 98-107 [facility] Work Phone: Eosinophils/100 WBC (Bld) 1.6 % 0-5 [facility] Work Phone: Glucose [Mass/Vol] 92 mg/dL 74-106 [facility] Work Phone: Neutrophils (Bld) [#/Vol] 8.3 10*3/uL 2.0-7.7 [facility] Work Phone: Neutrophils/100 WBC (Bld) 54.4 % 47-70 [facility] Work Phone: Potassium [Moles/Vol] 3.8 mmol/L 3.5-5.1 [facility] Work Phone: Protein [Mass/Vol] 8.1 g/dL 6.4-8.2 [facility] Work Phone: Sodium [Moles/Vol] 140 mmol/L 136-145 [facility] Work Phone: WBC (Bld) [#/Vol] 15.3 10*3/uL 4.4-11.0 [facility] Work Phone: Blood erythrocytes count (nu mber/volume)on 04-11-2022 RBC (Bld) [#/Vol] 4.38 10*6/uL 4.2-5.4 [facility] Work Phone: Blood hemoglobin measurement (mass/volume)on 04-11-2022 Hemoglobin (Bld) [Mass/Vol] 13.5 g/dL 12.0-15.0 [facility] Work Phone: Blood lymphocytes/100 leukoc yteson 04-11-2022 Lymphocytes/100 WBC (Bld) 36.2 % 19-41 [facility] Work Phone: Blood manual differential co mment interpretation (narrative result)on 04-11-2022 Manual differential comment Jeff (Bld) [Interp] SCANNED [facility] Work Phone: Blood monocytes/100 leukocyt eson 04-11-2022 Monocytes/100 WBC (Bld) 6.8 % 0-10 [facility] Work Phone: Blood platelet mean volumeon 04-11-2022 Platelet mean volume (Bld) [Entitic vol] 9.7 fL 6.2-12.0 [facility] Work Phone: [phone] Determination of erythrocyte mean corpuscular volume (MCV)on 04-11-2022 MCV (RBC) [Entitic vol] 90.2 fL 81-99 [facility] Work Phone: [phone] Direct bilirubinon Bilirubin.direct [Mass/Vol] 0.07 mg/dL 0.00-0.30 [facility] Work Phone: [phone] Hematocrit Auto (Bld) [Volum e fraction]on 04-11-2022 Hematocrit (Bld) [Volume fraction] 39.5 % 37-47 [facility] Work Phone: [phone] Laboratory - Chemistry and C hemistry - challengeon 04-11-2022 ALP [Catalytic activity/Vol] 78 U/L 45-117 [facility] Work Phone: ALT [Catalytic activity/Vol] 92 U/L 13-56 [facility] Work Phone: CO2 [Moles/Vol] 27.0 mmol/L 21.0-32.0 [facility] Work Phone: [phone] Globulin (S) [Mass/Vol] 4.7 g/dL 2.2-4.2 [facility] Work Phone: [phone] Lipase [Catalytic activity/Vol] 124 U/L 73-393 [facility] Work Phone: [phone] Urea nitrogen/Creatinine [Mass ratio] 10.3 mg/mg 10-20 [facility] Work Phone: [phone] Laboratory - Hematology and Cell countson 04-11-2022 Erythrocyte distribution width (RBC) [Entitic vol] 40.5 fL 35.1-43.9 [facility] Work Phone: Erythrocyte distribution width (RBC) [Ratio] 12.1 % 11.6-14.6 [facility] Work Phone: [phone] Immature granulocytes/100 WBC (Bld) 0.300 % 0.0-0.9 [facility] Work Phone: [phone] Comment on above: IG% - Immature Granu locytes (promyelocytes, myelocytes and metamyelocytes) > 1% indicates that a LEFT SHIFT is Present. MCH (RBC) [Entitic mass] 30.8 pg 27.0-32.0 [facility] Work Phone: Nucleated RBC/100 WBC (Bld) [Ratio] 0 % 0-5 [facility] Work Phone: MCHC Auto (RBC) [Mass/Vol]on 04-11-2022 MCHC (RBC) [Mass/Vol] 34.2 g/dL 32-36 [facility] Work Phone: No Panel Informationon 04-11 Estimated Creatinine Clearance Calc 135.25 ml/min [facility] Work Phone: Estimated GFR (MDRD) Amer 119 mL/min >60 [facility] Work Phone: Comment on above: GFR Calc Estimated GFR (MDRD) Non-Af Amer 98 mL/min >60 [facility] Work Phone: Comment on above: Non- GFR Calc Troponin I High Sensitivity 4 pg/mL 3.0-54.0 [facility] Work Phone: Comment on above: Please Note: New Susan t Units and Gender Specific Reference Ranges. For more information see Policy Stat Procedure Chandler High Sensitivity Troponin (TNIH) and attachments. Platelets bldon 04-11-2022 Platelets (Bld) [#/Vol] 493 10*3/uL 150-450 [facility] Work Phone: Serum or plasma albumin lawrence urement (mass/volume)on 04-11-2022 Albumin [Mass/Vol] 3.4 g/dL 3.2-5.0 [facility] Work Phone: Serum or plasma calcium lawrence urement (mass/volume)on 04-11-2022 Calcium [Mass/Vol] 8.8 mg/dL 8.5-10.1 [facility] Work Phone: Serum or plasma creatinine m easurement (mass/volume)on 04-11-2022 Creatinine [Mass/Vol] 0.77 mg/dL 0.55-1.02 [facility] Work Phone: Comment on above: The validity of the calculated GFR & GFRAA in patients over 70 years has not been determined. Clinical correlation is essential. Serum or plasma urea nitroge n measurement (mass/volume)on 04-11-2022 Urea nitrogen [Mass/Vol] 8 mg/dL 7-18 [facility] Work Phone: Thin prep Papanicolaou smear with manual screeningon 04-11-2022 Thin prep Papanicolaou smear with manual screening 53 U/L 15- [facility] Work Phone: Thin prep Papanicolaou smear with manual screening 7 -15 [facility] Work Phone: UA DIP, URINE (POC)on 2021 BILIRUBIN UA (POCT) Negative Negative [facility] CLARITY UA (POCT) Clear [facility] COLOR UA (POCT) Yellow [facility] GLUCOSE UA (POCT) Negative Negative mg/dL [facility] HEMOGLOBIN/BLOOD UA (POCT) Negative Negative [facility] KETONE UA (POCT) Negative Negative mg/dL [facility] LEUKOCYTES UA (POCT) Negative Negative [facility] NITRITE UA (POCT) Negative Negative [facility] PH UA (POCT) 8.5 Abnormal 4.5 - 8.0 [facility] Protein Ql (U) 30 mg/dL Abnormal Negative mg/dL [facility] SPECIFIC GRAVITY UA (POCT) 1.020 1.005 - 1.030 [facility] UROBILINOGEN UA (POCT) 0.2 E.U./dL Normal E.U./dL [facility] No Panel Informationon 02-20 IMPRESSION: RIGHT ANKLE: Within normal limits. No bone or joint abnormalities seen. RIGHT FOOT: Within normal limits. No acute findings. Sheep Shearer: PSCB Transcribe Date/Time: Feb 20 2022 7:11P Dictated by : ISAIAS SMYTH MD This examination was interpreted and the report reviewed and electronically signed by: ISAIAS SMYTH MD on Feb 20 2022 7:15PM [facility] DIVISION OF RADIOLOGY Radiology Study observation (narrative) [facility] No Panel InformationOrdered By: Cc Provider on 02-20-2022 [facility] [facility] XR Ankle - right AP and [...] comparison AP projection. DIVISION OF RADIOLOGY Provider, [facility] - 02/20/2022 * * *Final Report* [...] FOOT: Within normal limits. No acute findings. Sheep Shearer: PSCB Transcribe Date/Time: Feb 20 2022 7:11P Dictated by : ISAIAS SMYTH MD This examination was interpreted and the report reviewed and electronically signed by: ISAIAS SMYTH MD on Feb 20 2022 7:15PM [facility] XR Foot - right AP and Later [...] comparison AP projection. DIVISION OF RADIOLOGY Provider, [facility] - 02/20/2022 * * *Final Report* [...] FOOT: Within normal limits. No acute findings. Sheep Shearer: SILVIANO Transcribe Date/Time: Feb 20 2022 7:11P Dictated by : ISAIAS SMYTH MD This examination was interpreted and the report reviewed and electronically signed by: ISAIAS SMYTH MD on Feb 20 2022 7:15PM [facility] XR Toes - right 3 Viewson IMPRESSION: No acute process. Sheep Shearer: PSCB Transcribe Date/Time: Jul 12 2021 3:51P Dictated by : OTILIA DAMON MD This examination was interpreted and the report reviewed and electronically signed by: OTILIA DAMON MD on Jul 12 2021 3:54PM [facility] DIVISION OF RADIOLOGY * * *Final Report* [...] soft tissue abnormality. [facility] * * *Final [...] tissue abnormality. IMPRESSION IMPRESSION: No acute process. [facility] Transcribe Date/Time: Jul 12 2021 3:51P Dictated by : OTILIA DAMON MD This examination was interpreted and the report reviewed and electronically signed by: OTILIA DAMON MD on Jul 12 2021 3:54PM EST [facility] Radiology Study observation (narrative) [facility] XR Toes - right 3 ViewsOrder ed By: Ccf Provider on 07-12-2021 [facility] XR ANKLE LEFT 3 [facility] 021 XR ANKLE LEFT 3 [place] [address] Radiology PATIENT NAME: Katie Forde MR#: [id number] PROCEDURE DATE: 04/18/2021 ROOM#: ORDERING PHYS: Gerri [...] Suarez MD dd TD: 04/19/2021 JOB #: [id number] Radiology Page 1 of 1 COPY Normal [facility] XR FOOT LEFT 3VW OR MOREon 1 XR FOOT LEFT 3VW OR MORE [facility] [address] [place] [address] Radiology PATIENT NAME: Ktaie Forde MR#: [id number] PROCEDURE DATE: 04/18/2021 ROOM#: ORDERING PHYS: Gerri [...] Suarez MD dd TD: 04/19/2021 JOB #: [id number] Radiology Page 1 of 1 COPY Normal [facility] URINE CULTUREon 04-12-2021 Bacteria identified Cx Nom (U) COLONY COUNT: 10-100K cfu/ml Escherichia coli. [id number] coliSCTesccolEscherichia coli [ S = SUSCEPTIBLE R [...] <= 0.25 Imipenem S <= 0.25 Normal [facility] Comment on above: Performed By: #### L [id number], [id number] #### [place] [address] CBCon 04-10-2021 Basophil Abs. 0.2 10*3/uL High 0.0-0.1 [facility] Comment on above: Performed By: #### L [id number] #### [place] [address] Basophils/100 WBC (Bld) 1.2 % High 0.0-1.0 [facility] Comment on above: Performed By: #### L [id number] #### [place] [address] Differential type Auto Normal [facility] Comment on above: Performed By: #### L [id number] #### [place] [address] Eosinophils (Bld) [#/Vol] 0.2 10*3/uL Normal 0.0-0.5 [facility] Comment on above: Performed By: #### L [id number] #### [place] [address] Eosinophils/100 WBC (Bld) 1.1 % Normal 0.3-5.0 [facility] Comment on above: Performed By: #### L [id number] #### [facility] [address] [place], [place] Erythrocyte distribution width (RBC) [Ratio] 13.2 % High 11.5-13.1 [facility] Comment on above: Performed By: #### L [id number] #### [facility] [address] [place], [place] Hematocrit (Bld) [Volume fraction] 40.3 % Normal 33.0-51.0 [facility] Comment on above: Performed By: #### L [id number] #### [facility] [address] [place], [place] Hemoglobin (Bld) [Mass/Vol] 13.4 g/dL Normal 12.0-16.0 [facility] Comment on above: Performed By: #### L [id number] #### [facility] [address] [place], [place] Lymphocytes (Bld) [#/Vol] 3.9 10*3/uL Normal 1.1-5.0 [facility] Comment on above: Performed By: #### L [id number] #### [facility] [address] [place] [address] Lymphocytes/100 WBC (Bld) 27.8 % Normal 24.0-44.0 [facility] Comment on above: Performed By: #### L [id number] #### [facility] [address] [place], [place] MCH (RBC) [Entitic mass] 31.0 pg Normal 26.0-34.0 [facility] Comment on above: Performed By: #### L [id number] #### [facility] [address] [place], [place] MCHC (RBC) [Mass/Vol] 33.1 g/dL Normal 32.0-36.0 [facility] Comment on above: Performed By: #### L [id number] #### [facility] [address] [place], [place] MCV (RBC) [Entitic vol] 93.6 fL Normal 80.0-100.0 [facility] Comment on above: Performed By: #### L [id number] #### [facility] [address] [place], [place] Monocytes (Bld) [#/Vol] 1.0 10*3/uL Normal 0.0-1.4 [facility] Comment on above: Performed By: #### L [id number] #### [facility] [address] [place], [place] Monocytes/100 WBC (Bld) 6.8 % Normal 2.1-13.3 [facility] Comment on above: Performed By: #### L [id number] #### [facility] [address] [place], [place] Neutrophils, Abs. 8.9 10*3/uL High 1.5-8.5 [facility] Comment on above: Performed By: #### L [id number] #### [facility] [address] [place], [place] Neutrophils/100 WBC (Bld) 63.1 % Normal 35.0-66.0 [facility] Comment on above: Performed By: #### L [id number] #### [facility] [address] [place] [address] Platelet Cnt 442 10*3/uL Normal 150-450 [facility] Comment on above: Performed By: #### L [id number] #### [facility] [address] [place], [place] Platelet mean volume (Bld) [Entitic vol] 8.0 fL Normal 6.5-10.0 [facility] Comment on above: Performed By: #### L [id number] #### [facility] [address] [place], [place] RBC (Bld) [#/Vol] 4.31 10*6/uL Normal 4.00-5.20 [facility] Comment on above: Performed By: #### L [id number] #### [facility] [address] [place] [address] WBC (Bld) [#/Vol] 14.1 10*3/uL High 4.5-11.0 [facility] Comment on above: Performed By: #### L [id number] #### [facility] [address] [place] [address] UA w/ Culture reflexon 04-10 UR BACTERIA None Seen Normal NONE SEEN [facility] Comment on above: Performed By: #### L [id number], [id number] #### [facility] [address] [place] [address] UR BILIRUBIN Negative Normal NEGATIVE [facility] Comment on above: Performed By: #### L [id number], [id number] #### [facility] [address] [place] [address] UR BLOOD 2 + mg/dL Abnormal NEGATIVE [facility] Comment on above: Performed By: #### L [id number], [id number] #### [facility] [address] [place] [address] UR CLARITY Clear Normal CLEAR [facility] Comment on above: Performed By: #### L [id number], [id number] #### [facility] [address] [place] [address] UR COLOR Light-Yellow Normal YELLOW [facility] Comment on above: Performed By: #### L CA1734, [id number] #### [facility] [address] [place] [address] UR GLUCOSE Normal Normal NEGATIVE [facility] Comment on above: Performed By: #### L [id number], [id number] #### [facility] [address] [place] [address] UR KETONE Negative Normal NEGATIVE [facility] Comment on above: Performed By: #### L [id number], [id number] #### [facility] [address] [place] [address] UR LEUKOCYTE Negative Normal NEGATIVE [facility] Comment on above: Performed By: #### L QX0736, [id number] #### [facility] [address] [place] [address] UR MUCOUS Rare Normal NONE SEEN [facility] Comment on above: Performed By: #### L [id number], [id number] #### [facility] [address] [place] [address] UR NITRITE Negative Normal NEGATIVE [facility] Comment on above: Performed By: #### L [id number], [id number] #### [facility] [address] [place] [address] UR NON-SQUAMOUS EPI < 1 Normal NONE SEEN [facility] Comment on above: Performed By: #### L [id number], [id number] #### [facility] [address] [place] [address] UR PH 8.0 Normal 5.0-9.0 [facility] Comment on above: Performed By: #### L [id number], #### [facility] [address] [place] [address] UR PROTEIN Negative Normal NEGATIVE [facility] Comment on above: Performed By: #### L PZ7501, [id number] #### [facility] [address] [place] [address] UR RBC 4 - 5 Normal 1-3 [facility] Comment on above: Performed By: #### L [id number], [id number] #### [facility] [address] [place] [address] UR SP GRAVITY 1.018 Normal 1.005-1.030 [facility] Comment on above: Performed By: #### L JD4700, [id number] #### [facility] [address] [place] [address] UR SQUAMOUS EPI 1 - 3 Normal 3-5 [facility] Comment on above: Performed By: #### L [id number], [id number] #### [facility] [address] [place] [address] UR UROBILINOGEN Normal Normal <2.0 [facility] Comment on above: Performed By: #### L [id number], [id number] #### [place] [address] UR WBC 11 - 20 Abnormal 1-3 [facility] Comment on above: Performed By: #### L [id number], [id number] #### [facility] [address] [place] [address] SARS-CoV, QL, PCRon 04-04-20 21 SARS-CoV, QL, PCR Not detected Normal Undetected [facility] Comment on above: Order Comment: [place] chem Symptomatic?->No Indications (select all that apply)->Asymptomatic - essential worker Was specimen collected by a [facility] steamship agent?->Yes Was this specimen self collected?->No Result Comment: Testing was performed using the [employer] Direct. 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 PROCEDURES PERFORMED: Pars plana vitrectomy, pars plana lensectomy, endolaser, secondary IOL placement in the left eye. ATTENDING SURGEON: Naeem Sorto MD WASTE ELIMINATION: [place] COMPLICATIONS: None. SPECIMENS: None. ESTIMATED [...] to the anterior segment where there [facility] PATIENT NAME: KATIE FORDE [address] [facility] [address] [place] MEDICAL REC #: [id number] [place] [address] ADMIT DATE: DISCHARGE DATE: OPERATIVE REPORT ATTENDING [...] and shield were placed. Naeem Sorto MD DR/[id number] SSI File#: [id number] Verified/Reviewed by 11/16/[address] [facility] PATIENT NAME: KATIE FORDE [address] [facility] [address] [place] MEDICAL REC #: [id number] [place] [address] ADMIT DATE: DISCHARGE DATE: OPERATIVE REPORT ATTENDING PHY: Naeem Sorto MD Normal [facility] URINE PREGNANCYon 10-14-2018 HCG.beta subunit ( test) Ql (U) Negative Normal NEGATIVE [facility] Comment on above: Order Comment: Kenrick s: M Performed By: #### L [id number] #### [facility] [address] [place] [address] UR SPEC GRAV 1.015 Normal 1.005-1.030 [facility] Comment on above: Order Comment: Campu s: M Performed By: #### L [id number] #### [facility] [address] [place] [address] URINE PREGNANCYon 08-19-2018 HCG.beta subunit ( test) Ql (U) Negative Normal NEGATIVE [facility] Comment on above: Order Comment: Campu s: M Performed By: #### L 600.15652 #### [facility] [place] [address] UR SPEC GRAV 1.022 Normal 1.005-1.030 [facility] Comment on above: Order Comment: Campu s: M Performed By: #### L [id number] #### [facility] [address] [place] [address] Vital Signs Date Time Vital Sign Value Performing Clinician Facility 01-03-2025 13:33-0400 Body mass index (BMI) [Ratio] 39.32 kg/m2 Sher Hollingsworth APRN.JAMB CUTTER Work Phone: [facility] 01-03-2025 13:33-0400 Body weight 131.5 kg Sher Hollingsworth APRN.JAMB CUTTER Work Phone: [facility] 01-03-2025 13:33-0400 Diastolic blood pressure 80 mm[Hg] Sher Hollingsworth APRN.JAMB CUTTER Work Phone: [facility] 01-03-2025 13:33-0400 Heart rate 79 /min Sher Hollingsworth APRN.JAMB CUTTER Work Phone: [facility] 01-03-2025 13:33-0400 SaO2% (BldA) [Mass fraction] 99 % Sher Hollingsworth APRN.JAMB CUTTER Work Phone: [facility] 01-03-2025 13:33-0400 Systolic blood pressure 120 mm[Hg] Sher Darrick BELL MAKER.JAMB CUTTER Work Phone: [facility] 12-06-2024 14:03-0400 Body mass index (BMI) [Ratio] 39.59 kg/m2 Sher Darrick BELL MAKER.JAMB CUTTER Work Phone: [facility] 12-06-2024 14:03-0400 Body weight 132.4 kg Sher Darrick BELL MAKER.JAMB CUTTER Work Phone: [facility] 12-06-2024 14:03-0400 Diastolic blood pressure 64 mm[Hg] Sher Darrick BELL MAKER.JAMB CUTTER Work Phone: [facility] 12-06-2024 14:03-0400 Heart rate 100 /min Sher Darrick BELL MAKER.JAMB CUTTER Work Phone: [facility] 12-06-2024 14:03-0400 SaO2% (BldA) [Mass fraction] 98 % Sher Darrikc BELL MAKER.JAMB CUTTER Work Phone: [facility] 12-06-2024 14:03-0400 Systolic blood pressure 120 mm[Hg] Sher Darrick BELL MAKER.JAMB CUTTER Work Phone: [facility] 12-02-2024 23:42-0400 Body temperature 97.8 [degF] Dr. Kate Silva MD Work Phone: [facility] 12-02-2024 23:42-0400 Diastolic blood pressure 79 mm[Hg] Dr. Kate Silva MD Work Phone: [facility] 12-02-2024 23:42-0400 Heart rate 95 /min Dr. Kate Silva MD Work Phone: [facility] 12-02-2024 23:42-0400 Respiratory rate 16 /min Dr. Kate Silva MD Work Phone: [facility] 12-02-2024 23:42-0400 SaO2% (BldA) [Mass fraction] 97 % Dr. Kate Silva MD Work Phone: [facility] 12-02-2024 23:42-0400 Systolic blood pressure 135 mm[Hg] Dr. Kate Silva MD Work Phone: [facility] 12-02-2024 20:47-0400 Body height 185.[address] Kate Silva MD Work Phone: [facility] 12-02-2024 20:47-0400 Body mass index (BMI) [Ratio] 38.7 kg/m2 Dr. Kate Silva MD Work Phone: [facility] 12-02-2024 20:47-0400 Body weight 133.[address] Kate Silva MD Work Phone: [facility] 11-08-2024 11:35-0400 Body mass index (BMI) [Ratio] 39.38 kg/m2 Sher Darrick BELL MAKER.JAMB CUTTER Work Phone: [facility] 11-08-2024 11:35-0400 Body weight 131.7 kg Sher Darrick BELL MAKER.JAMB CUTTER Work Phone: [facility] 11-08-2024 11:35-0400 Diastolic blood pressure 60 mm[Hg] Sher Darrick BELL MAKER.JAMB CUTTER Work Phone: [facility] 11-08-2024 11:35-0400 Heart rate 101 /min Sher Darrick BELL MAKER.JAMB CUTTER Work Phone: [facility] 11-08-2024 11:35-0400 SaO2% (BldA) [Mass fraction] 98 % Sher Darrick BELL MAKER.JAMB CUTTER Work Phone: [facility] 11-08-2024 11:35-0400 Systolic blood pressure 102 mm[Hg] Sher Darrick BELL MAKER.JAMB CUTTER Work Phone: [facility] 11-02-2024 09:06-0400 Body mass index (BMI) [Ratio] 39.23 kg/m2 Sher Darrick BELL MAKER.JAMB CUTTER Work Phone: [facility] 11-02-2024 09:06-0400 Body weight 131.2 kg Sher Darrick BELL MAKER.JAMB CUTTER Work Phone: [facility] 11-02-2024 09:06-0400 Diastolic blood pressure 70 mm[Hg] Sher Porterr BELL MAKER.JAMB CUTTER Work Phone: [facility] 11-02-2024 09:06-0400 Heart rate 93 /min Sher Porterr BELL MAKER.JAMB CUTTER Work Phone: [facility] 11-02-2024 09:06-0400 SaO2% (BldA) [Mass fraction] 98 % Sher Darrick BELL MAKER.JAMB CUTTER Work Phone: [facility] 11-02-2024 09:06-0400 Systolic blood pressure 100 mm[Hg] Sher Porterr BELL MAKER.JAMB CUTTER Work Phone: [facility] 10-29-2024 01:28-0400 Body temperature 97.9 [degF] Dr. Kate Silva MD Work Phone: [facility] 10-29-2024 01:28-0400 Diastolic blood pressure 75 mm[Hg] Dr. Kate Silva MD Work Phone: 1(225)469-266415 [place] [address] 10-29-2024 01:28-0400 Heart rate 87 /min Dr. Kate Silva MD Work Phone: [facility] 10-29-2024 01:28-0400 Respiratory rate 18 /min Dr. Kate Silva MD Work Phone: [facility] 10-29-2024 01:28-0400 SaO2% (BldA) [Mass fraction] 96 % Dr. Kate Silva MD Work Phone: [facility] 10-29-2024 01:28-0400 Systolic blood pressure 126 mm[Hg] Dr. Kate Silva MD Work Phone: [facility] 10-28-2024 22:31-0400 Body mass index (BMI) [Ratio] 38.6 kg/m2 Dr. Kate Silva MD Work Phone: 4(518)973-025215 [place] [address] 10-28-2024 22:31-0400 Body weight 132.[address] Kate Silva MD Work Phone: [facility] 10-26-2024 14:01-0400 Body mass index (BMI) [Ratio] 39.8 kg/m2 Sher Darrick BELL MAKER.JAMB CUTTER Work Phone: [facility] 10-26-2024 14:01-0400 Body weight 133.1 kg Sher Darrick BELL MAKER.JAMB CUTTER Work Phone: [facility] 10-26-2024 14:01-0400 Diastolic blood pressure 70 mm[Hg] Sher Darrick BELL MAKER.JAMB CUTTER Work Phone: [facility] 10-26-2024 14:01-0400 Heart rate 96 /min Sher Darrick BELL MAKER.JAMB CUTTER Work Phone: [facility] 10-26-2024 14:01-0400 Respiratory rate 16 /min Sher Darrick BELL MAKER.JAMB CUTTER Work Phone: [facility] 10-26-2024 14:01-0400 Systolic blood pressure 116 mm[Hg] Sher Darrick BELL MAKER.JAMB CUTTER Work Phone: [facility] 10-25-2024 01:56-0400 Body temperature 97.8 [degF] Dr. Kate Silva MD Work Phone: [facility] 10-25-2024 01:56-0400 Diastolic blood pressure 76 mm[Hg] Dr. Kate Silva MD Work Phone: [facility] 10-25-2024 01:56-0400 Heart rate 98 /min Dr. Kate Silva MD Work Phone: [facility] 10-25-2024 01:56-0400 Respiratory rate 18 /min Dr. Kate Silva MD Work Phone: [facility] 10-25-2024 01:56-0400 SaO2% (BldA) [Mass fraction] 99 % Dr. Kate iSlva MD Work Phone: [facility] 10-25-2024 01:56-0400 Systolic blood pressure 123 mm[Hg] Dr. Kate Silva MD Work Phone: [facility] 10-25-2024 00:37-0400 Body height 185.[address] Kate Silva MD Work Phone: [facility] 10-25-2024 00:37-0400 Body mass index (BMI) [Ratio] 38.9 kg/m2 Dr. Kate Silva MD Work Phone: [facility] 10-25-2024 00:37-0400 Body weight [address] Kate Silva MD Work Phone: [facility] 10-20-2024 10:14-0400 Body height 182.9 cm Kate Silva MD Work Phone: [facility] 10-20-2024 10:14-0400 Body mass index (BMI) [Ratio] 40.01 kg/m2 Kate Silva MD Work Phone: [facility] 10-20-2024 10:14-0400 Body temperature 99 [degF] Kate Silva MD Work Phone: [facility] 10-20-2024 10:14-0400 Body weight 133.8 kg Kate Silva MD Work Phone: [facility] 10-20-2024 10:14-0400 Diastolic blood pressure 70 mm[Hg] Kate Silva MD Work Phone: [facility] 10-20-2024 10:14-0400 Heart rate 95 /min Kate Silva MD Work Phone: [facility] 10-20-2024 10:14-0400 Respiratory rate 14 /min Kate Silva MD Work Phone: [facility] 10-20-2024 10:14-0400 SaO2% (BldA) [Mass fraction] 98 % Kate Silva MD Work Phone: [facility] 10-20-2024 10:14-0400 Systolic blood pressure 118 mm[Hg] Kate Silva MD Work Phone: [facility] 10-11-2024 15:48-0400 Body mass index (BMI) [Ratio] 40.28 kg/m2 Gopal Yanez MD Work Phone: [facility] 10-11-2024 15:48-0400 Body temperature 98.29 [degF] Gopal Yanez MD Work Phone: [facility] 10-11-2024 15:48-0400 Body weight 134.72 kg Gopal Yanez MD Work Phone: [facility] 10-11-2024 15:48-0400 Diastolic blood pressure 77 mm[Hg] Gopal Yanez MD Work Phone: [facility] 10-11-2024 15:48-0400 Heart rate 102 /min Gopal Yanez MD Work Phone: [facility] 10-11-2024 15:48-0400 SaO2% (BldA) [Mass fraction] 98 % Gopal Yanez MD Work Phone: [facility] 10-11-2024 15:48-0400 Systolic blood pressure 114 mm[Hg] Gopal Yanez MD Work Phone: [facility] 10-11-2024 09:43-0400 Body mass index (BMI) [Ratio] 39.93 kg/m2 Pat Zamora BELL MAKER.JAMB CUTTER Work Phone: [facility] 10-11-2024 09:43-0400 Body weight 133.54 kg Pat Agata BELL MAKER.JAMB CUTTER Work Phone: [facility] 10-11-2024 09:43-0400 Diastolic blood pressure 66 mm[Hg] Pat Zamora BELL MAKER.JAMB CUTTER Work Phone: [facility] 10-11-2024 09:43-0400 Systolic blood pressure 100 mm[Hg] Pat Agata BELL MAKER.JAMB CUTTER Work Phone: [facility] 10-06-2024 22:24-0400 Body temperature 97.8 [degF] Dr. Kate Silva MD Work Phone: [facility] 10-06-2024 22:24-0400 Diastolic blood pressure 72 mm[Hg] Dr. Kate Silva MD Work Phone: [facility] 10-06-2024 22:24-0400 Heart rate 95 /min Dr. Kate Silva MD Work Phone: [phone])[phone] [place] [address] 10-06-2024 22:24-0400 Respiratory rate 16 /min Dr. Kate Silva MD Work Phone: [phone](634)[phone] [place] [address] 10-06-2024 22:24-0400 SaO2% (BldA) [Mass fraction] 96 % Dr. Kate Silva MD Work Phone: 4(724)[phone] [place] [address] 10-06-2024 22:24-0400 Systolic blood pressure 134 mm[Hg] Dr. Kate Silva MD Work Phone: [phone] [place] [address] 10-06-2024 19:45-0400 Body height 185.[address] Kate Silva MD Work Phone: 6(984)[phone] [place] [address] 10-06-2024 19:45-0400 Body mass index (BMI) [Ratio] 38.9 kg/m2 Dr. Kate Silva MD Work Phone: 1(404)[phone] [place] [address] 10-06-2024 19:45-0400 Body weight [address] Kate Silva MD Work Phone: [facility] 10-01-2024 10:13-0400 Body mass index (BMI) [Ratio] 39.83 kg/m2 Kate Silva MD Work Phone: [facility] 10-01-2024 10:13-0400 Body weight 133.2 kg Kate Silva MD Work Phone: [facility] 10-01-2024 10:13-0400 Diastolic blood pressure 64 mm[Hg] Kate Silva MD Work Phone: [facility] 10-01-2024 10:13-0400 Heart rate 64 /min Kate Silva MD Work Phone: [facility] 10-01-2024 10:13-0400 Respiratory rate 14 /min Kate Silva MD Work Phone: [facility] 10-01-2024 10:13-0400 Systolic blood pressure 110 mm[Hg] Kate Silva MD Work Phone: [facility] 09-29-2024 21:52-0400 Body temperature 98.7 [degF] Dr. Kate Silva MD Work Phone: [facility] 09-29-2024 21:52-0400 Diastolic blood pressure 66 mm[Hg] Dr. Kate Silva MD Work Phone: [facility] 09-29-2024 21:52-0400 Heart rate 92 /min Dr. Kate Silva MD Work Phone: [phone])[phone] [place] [address] 09-29-2024 21:52-0400 Respiratory rate 14 /min Dr. Kate Silva MD Work Phone: 2(284)[phone] [place] [address] 09-29-2024 21:52-0400 SaO2% (BldA) [Mass fraction] 100 % Dr. Kate Silva MD Work Phone: [facility] 09-29-2024 21:52-0400 Systolic blood pressure 118 mm[Hg] Dr. aKte Silva MD Work Phone: [facility] 09-29-2024 20:09-0400 Body height 185.[address] Kate Silva MD Work Phone: 8(793)[phone] [place] [address] 09-29-2024 20:09-0400 Body mass index (BMI) [Ratio] 39.3 kg/m2 Dr. Kate Silva MD Work Phone: 8(082)[phone] [place] [address] 09-29-2024 20:09-0400 Body weight 135.[address] Kate Silva MD Work Phone: 7(386)[phone] [place] [address] 08-30-2024 13:17-0500 Body height 182.9 cm Santi Mcallister MD Work Phone: [facility] 08-30-2024 13:17-0500 Body mass index (BMI) [Ratio] 40.55 kg/m2 Santi Mcallister MD Work Phone: [facility] 08-30-2024 13:17-0500 Body weight 135.63 kg Santi Mcallister MD Work Phone: [facility] 08-30-2024 13:17-0500 Diastolic blood pressure 74 mm[Hg] Santi Mcallister MD Work Phone: [facility] 08-30-2024 13:17-0500 Heart rate 93 /min Santi Mcallister MD Work Phone: [facility] 08-30-2024 13:17-0500 Respiratory rate 14 /min Santi Mcallister MD Work Phone: [facility] 08-30-2024 13:17-0500 SaO2% (BldA) [Mass fraction] 96 % Santi Mcallister MD Work Phone: [facility] 08-30-2024 13:17-0500 Systolic blood pressure 118 mm[Hg] Santi Mcallister MD Work Phone: [facility] 08-24-2024 10:21-0500 Body mass index (BMI) [Ratio] 40.87 kg/m2 Rahda Clutter PA-C Work Phone: [facility] 08-24-2024 10:21-0500 Body temperature 98.01 [degF] Radha Clutter PA-C Work Phone: [facility] 08-24-2024 10:21-0500 Body weight 136.7 kg Radha Clutter PA-C Work Phone: [facility] 08-24-2024 10:21-0500 Diastolic blood pressure 78 mm[Hg] Radha Clutter PA-C Work Phone: [facility] 08-24-2024 10:21-0500 Heart rate 104 /min Radha Clutter PA-C Work Phone: [facility] 08-24-2024 10:21-0500 Respiratory rate 16 /min Radha Clutter PA-C Work Phone: [facility] 08-24-2024 10:21-0500 SaO2% (BldA) [Mass fraction] 97 % Radha Clutter PA-C Work Phone: [facility] 08-24-2024 10:21-0500 Systolic blood pressure 118 mm[Hg] Radha Clutter PA-C Work Phone: [facility] 08-09-2024 10:30-0500 Body mass index (BMI) [Ratio] 40.66 kg/m2 Kate Silva MD Work Phone: [facility] 08-09-2024 10:30-0500 Body weight 136 kg Kate Silva MD Work Phone: [facility] 08-09-2024 10:30-0500 Diastolic blood pressure 61 mm[Hg] Kate Silva MD Work Phone: [facility] 08-09-2024 10:30-0500 Heart rate 86 /min Kate Silva MD Work Phone: [facility] 08-09-2024 10:30-0500 Respiratory rate 16 /min Kate Silva MD Work Phone: [facility] 08-09-2024 10:30-0500 Systolic blood pressure 103 mm[Hg] Kate Silva MD Work Phone: [facility] 05-19-2024 09:54-0500 Body mass index (BMI) [Ratio] 41.14 kg/m2 Arthur Athy PA-C Work Phone: [facility] 05-19-2024 09:54-0500 Body temperature 97.59 [degF] Arthur Athy PA-C Work Phone: [facility] 05-19-2024 09:54-0500 Body weight 137.6 kg Arthur Athy PA-C Work Phone: [facility] 05-19-2024 09:54-0500 Diastolic blood pressure 82 mm[Hg] Arthur Athy PA-C Work Phone: [facility] 05-19-2024 09:54-0500 Heart rate 97 /min Arthur Athy PA-C Work Phone: [facility] 05-19-2024 09:54-0500 Respiratory rate 18 /min Arthur Athy PA-C Work Phone: [facility] 05-19-2024 09:54-0500 SaO2% (BldA) [Mass fraction] 98 % Arthur Athy PA-C Work Phone: [facility] 05-19-2024 09:54-0500 Systolic blood pressure 120 mm[Hg] Arthur Athy PA-C Work Phone: [facility] 05-12-2024 15:59-0500 Body mass index (BMI) [Ratio] 40.85 kg/m2 Rebeca Beasley [employer]CNM Work Phone: [facility] 05-12-2024 15:59-0500 Body weight 136.62 kg Rebeca Beasley BE[employer].CNM Work Phone: [facility] 05-12-2024 15:59-0500 Diastolic blood pressure 80 mm[Hg] Rebeca Beasley BELL MA[employer]ER.CNM Work Phone: [facility] 05-12-2024 15:59-0500 Systolic blood pressure 120 mm[Hg] Rebeca Beasley BELL MAKER.CNM Work Phone: [facility] 04-30-2024 12:55-0400 Body mass index (BMI) [Ratio] 40.69 kg/m2 Sher Darrick BELL MAKER.JAMB CUTTER Work Phone: [facility] 04-30-2024 12:55-0400 Body weight 136.1 kg Sher Darrick BELL MAKER.JAMB CUTTER Work Phone: [facility] 04-30-2024 12:55-0400 Diastolic blood pressure 82 mm[Hg] Sher Darrick BELL MAKER.JAMB CUTTER Work Phone: [facility] 04-30-2024 12:55-0400 Heart rate 95 /min Sher Darrick BELL MAKER.JAMB CUTTER Work Phone: [facility] 04-30-2024 12:55-0400 SaO2% (BldA) [Mass fraction] 99 % Sher Darrick BELL MAKER.JAMB CUTTER Work Phone: [facility] 04-30-2024 12:55-0400 Systolic blood pressure 110 mm[Hg] Sher Darrick BELL MAKER.JAMB CUTTER Work Phone: [facility] 03-19-2024 10:10-0400 Diastolic blood pressure 88 mm[Hg] Sher Darrick BELL MAKER.JAMB CUTTER Work Phone: [facility] 03-19-2024 10:10-0400 Systolic blood pressure 118 mm[Hg] Sher Darrick BELL MAKER.JAMB CUTTER Work Phone: [facility] 03-19-2024 10:06-0400 Body mass index (BMI) [Ratio] 41.62 kg/m2 Sher Darrick BELL MAKER.JAMB CUTTER Work Phone: [facility] 03-19-2024 10:06-0400 Body weight 139.2 kg Sher Darrick BELL MAKER.JAMB CUTTER Work Phone: [facility] 03-19-2024 10:06-0400 Heart rate 103 /min Sher Darrick BELL MAKER.JAMB CUTTER Work Phone: [facility] 03-19-2024 10:06-0400 SaO2% (BldA) [Mass fraction] 97 % Sher Darrick BELL MAKER.JAMB CUTTER Work Phone: [facility] 03-04-2024 12:42-0400 Body mass index (BMI) [Ratio] 42.45 kg/m2 Pat Agata BELL MAKER.JAMB CUTTER Work Phone: [facility] 03-04-2024 12:42-0400 Body weight 141.98 kg Pat Agata BELL MAKER.JAMB CUTTER Work Phone: [facility] 03-04-2024 12:42-0400 Diastolic blood pressure 76 mm[Hg] Pat Agata BELL MAKER.JAMB CUTTER Work Phone: [facility] 03-04-2024 12:42-0400 Systolic blood pressure 124 mm[Hg] Pat Agata BELL MAKER.JAMB CUTTER Work Phone: [facility] 03-02-2024 12:27-0400 Body mass index (BMI) [Ratio] 42.43 kg/m2 Rebeca Foley BE[employer] MAKER.JAMB CUTTER Work Phone: [facility] 03-02-2024 12:27-0400 Body temperature 98.29 [degF] Rebeca Foley BE[employer] MAKER.JAMB CUTTER Work Phone: [facility] 03-02-2024 12:27-0400 Body weight 141.9 kg Rebeca Foley BELL MAKER.JAMB CUTTER Work Phone: [facility] 03-02-2024 12:27-0400 Diastolic blood pressure 80 mm[Hg] Rebeca Foley BE[employer] MAKER.JAMB CUTTER Work Phone: [facility] 03-02-2024 12:27-0400 Heart rate 106 /min Rebeca Foley BELL MAKER.JAMB CUTTER Work Phone: [facility] 03-02-2024 12:27-0400 Respiratory rate 16 /min Rebeca Foley BELL MAKER.JAMB CUTTER Work Phone: [facility] 03-02-2024 12:27-0400 SaO2% (BldA) [Mass fraction] 98 % Rebeca Foley BELL MAKER.JAMB CUTTER Work Phone: [facility] 03-02-2024 12:27-0400 Systolic blood pressure 124 mm[Hg] Rebeca Foley BELL MAKER.JAMB CUTTER Work Phone: [facility] 02-10-2024 14:53-0400 Body mass index (BMI) [Ratio] 42.86 kg/m2 Pat Agata BELL MAKER.JAMB CUTTER Work Phone: [facility] 02-10-2024 14:53-0400 Body weight 143.34 kg Pat Agata BELL MAKER.JAMB CUTTER Work Phone: [facility] 02-10-2024 14:53-0400 Diastolic blood pressure 80 mm[Hg] Pat Zamora BE[employer] MAKER.JAMB CUTTER Work Phone: [facility] 02-10-2024 14:53-0400 Systolic blood pressure 120 mm[Hg] Pat Zamora BELL MAKER.JAMB CUTTER Work Phone: [facility] 01-27-2024 14:04-0400 Body mass index (BMI) [Ratio] 42.99 kg/m2 Sher Darrick BELL MAKER.JAMB CUTTER Work Phone: [facility] 01-27-2024 14:04-0400 Body weight 143.79 kg Sher Darrick BELL MAKER.JAMB CUTTER Work Phone: [facility] 01-27-2024 14:04-0400 Diastolic blood pressure 80 mm[Hg] Sher Darrick BELL MAKER.JAMB CUTTER Work Phone: [facility] 01-27-2024 14:04-0400 Heart rate 100 /min Sher Darrick BELL MAKER.JAMB CUTTER Work Phone: [facility] 01-27-2024 14:04-0400 Respiratory rate 20 /min Sher Darrick BELL MAKER.JAMB CUTTER Work Phone: [facility] 01-27-2024 14:04-0400 Systolic blood pressure 128 mm[Hg] Sher Darrick BELL MAKER.JAMB CUTTER Work Phone: [facility] 12-22-2023 16:32-0400 Body mass index (BMI) [Ratio] 43.47 kg/m2 Kera Alcala-Joseph BELL MAKER.JAMB CUTTER Work Phone: [facility] 12-22-2023 16:32-0400 Body temperature 97.39 [degF] Kera Praadaliler-Wood BELL MAKER.JAMB CUTTER Work Phone: [facility] 12-22-2023 16:32-0400 Body weight 145.4 kg Kera Praadaliler-Wood BELL MAKER.JAMB CUTTER Work Phone: [facility] 12-22-2023 16:32-0400 Diastolic blood pressure 72 mm[Hg] Kear Praisler-Wood BELL MAKER.JAMB CUTTER Work Phone: [facility] 12-22-2023 16:32-0400 Heart rate 116 /min Kera Praisler-Wood BELL MAKER.JAMB CUTTER Work Phone: [facility] 12-22-2023 16:32-0400 Respiratory rate 20 /min Kera Praisler-Wood BELL MAKER.JAMB CUTTER Work Phone: [facility] 12-22-2023 16:32-0400 SaO2% (BldA) [Mass fraction] 97 % Kera Praisler-Wood BELL MAKER.JAMB CUTTER Work Phone: [facility] 12-22-2023 16:32-0400 Systolic blood pressure 124 mm[Hg] Kera Praisler-Wood BELL MAKER.JAMB CUTTER Work Phone: [facility] 12-17-2023 09:22-0400 Body mass index (BMI) [Ratio] 43.18 kg/m2 Terrence Moomaw BELL MAKER.JAMB CUTTER Work Phone: [facility] 12-17-2023 09:22-0400 Body temperature 97.9 [degF] Terrence Moomaw BELL MAKER.JAMB CUTTER Work Phone: [facility] 12-17-2023 09:22-0400 Body weight 144.43 kg Terrence Moomaw BELL MAKER.JAMB CUTTER Work Phone: [facility] 12-17-2023 09:22-0400 Diastolic blood pressure 78 mm[Hg] Terrence Moomaw BELL MAKER.JAMB CUTTER Work Phone: [facility] 12-17-2023 09:22-0400 Heart rate 107 /min Terrence Moomaw BELL MAKER.JAMB CUTTER Work Phone: [facility] 12-17-2023 09:22-0400 Respiratory rate 18 /min Terrence Moomaw BELL MAKER.JAMB CUTTER Work Phone: [facility] 12-17-2023 09:22-0400 SaO2% (BldA) [Mass fraction] 98 % Terrence Moomaw BELL MAKER.JAMB CUTTER Work Phone: [facility] 12-17-2023 09:22-0400 Systolic blood pressure 122 mm[Hg] Terrence Moomaw BELL MAKER.JAMB CUTTER Work Phone: [facility] 12-15-2023 12:58-0400 Body mass index (BMI) [Ratio] 42.72 kg/m2 Sher Darrick BELL MAKER.JAMB CUTTER Work Phone: [facility] 12-15-2023 12:58-0400 Body weight 142.88 kg Sher Darrick BELL MAKER.JAMB CUTTER Work Phone: [facility] 12-15-2023 12:58-0400 Diastolic blood pressure 76 mm[Hg] Sher Darrick BELL MAKER.JAMB CUTTER Work Phone: [facility] 12-15-2023 12:58-0400 Heart rate 102 /min Sher Darrick BELL MAKER.JAMB CUTTER Work Phone: [facility] 12-15-2023 12:58-0400 Respiratory rate 16 /min Sher Darrick BELL MAKER.JAMB CUTTER Work Phone: [facility] 12-15-2023 12:58-0400 SaO2% (BldA) [Mass fraction] 97 % Sher Darrick BELL MAKER.JAMB CUTTER Work Phone: [facility] 12-15-2023 12:58-0400 Systolic blood pressure 128 mm[Hg] Sher Darrick BELL MAKER.JAMB CUTTER Work Phone: [facility] 12-12-2023 12:46-0400 Body height 182.9 cm Pat Agata BELL MAKER.JAMB CUTTER Work Phone: [facility] 12-12-2023 12:46-0400 Body mass index (BMI) [Ratio] 42.56 kg/m2 Pat Agata BELL MAKER.JAMB CUTTER Work Phone: [facility] 12-12-2023 12:46-0400 Body weight 142.34 kg Pat Agata BELL MAKER.JAMB CUTTER Work Phone: [facility] 12-12-2023 12:46-0400 Diastolic blood pressure 80 mm[Hg] Pat Zamora BELL MAKER.JAMB CUTTER Work Phone: [facility] 12-12-2023 12:46-0400 Heart rate 104 /min Pat Agata BELL MAKER.JAMB CUTTER Work Phone: [facility] 12-12-2023 12:46-0400 Respiratory rate 14 /min Pat Agata BELL MAKER.JAMB CUTTER Work Phone: [facility] 12-12-2023 12:46-0400 SaO2% (BldA) [Mass fraction] 96 % Pat Zamora BELL MAKER.JAMB CUTTER Work Phone: [facility] 12-12-2023 12:46-0400 Systolic blood pressure 122 mm[Hg] Pat Agata BELL MAKER.JAMB CUTTER Work Phone: [facility] 12-02-2023 12:07-0400 Body mass index (BMI) [Ratio] 42.76 kg/m2 Marielena West APRN.JAMB CUTTER Work Phone: [facility] 12-02-2023 12:07-0400 Body temperature 98.4 [degF] Marielena West APRN.JAMB CUTTER Work Phone: [facility] 12-02-2023 12:07-0400 Body weight 143.2 kg Marielena West APRN.JAMB CUTTER Work Phone: [facility] 12-02-2023 12:07-0400 Diastolic blood pressure 78 mm[Hg] Marielena West APRN.JAMB CUTTER Work Phone: [facility] 12-02-2023 12:07-0400 Heart rate 70 /min Marielena West APRN.JAMB CUTTER Work Phone: [facility] 12-02-2023 12:07-0400 Respiratory rate 18 /min Marielena West APRN.JAMB CUTTER Work Phone: [facility] 12-02-2023 12:07-0400 SaO2% (BldA) [Mass fraction] 100 % Marielena West APRN.JAMB CUTTER Work Phone: [facility] 12-02-2023 12:07-0400 Systolic blood pressure 118 mm[Hg] Marielena West APRN.JAMB CUTTER Work Phone: [facility] 10-22-2023 12:58-0400 Body height 182.9 cm Estrellita Kalka PA-C Work Phone: [facility] 10-22-2023 12:58-0400 Body mass index (BMI) [Ratio] 42.68 kg/m2 Estrellita Kalka PA-C Work Phone: [facility] 10-22-2023 12:58-0400 Body weight 142.84 kg Estrellita Kalka PA-C Work Phone: [facility] 10-22-2023 12:58-0400 Diastolic blood pressure 84 mm[Hg] Estrellita Kalka PA-C Work Phone: [facility] 10-22-2023 12:58-0400 Heart rate 108 /min Estrellita Kalka PA-C Work Phone: [facility] 10-22-2023 12:58-0400 Systolic blood pressure 132 mm[Hg] Estrellita Kalka PA-C Work Phone: [facility] 10-09-2023 11:39-0400 Body temperature 98.2 [degF] Krislyn Aberegg PA Work Phone: [facility] 10-09-2023 11:39-0400 Body weight 143 kg Krislyn Aberegg PA Work Phone: [facility] 10-09-2023 11:39-0400 Diastolic blood pressure 83 mm[Hg] Krislyn Aberegg PA Work Phone: [facility] 10-09-2023 11:39-0400 Heart rate 105 /min Krislyn Aberegg PA Work Phone: [facility] 10-09-2023 11:39-0400 Respiratory rate 22 /min Krislyn Aberegg PA Work Phone: [facility] 10-09-2023 11:39-0400 SaO2% (BldA) [Mass fraction] 97 % Aria Russell PA Work Phone: [facility] 10-09-2023 11:39-0400 Systolic blood pressure 133 mm[Hg] Aria Lugg PA Work Phone: [facility] 09-16-2023 11:23-0400 Body height 183.5 cm Kate Silva MD Work Phone: [facility] 09-16-2023 11:23-0400 Body weight 141.52 kg Kate Silva MD Work Phone: [facility] 09-16-2023 11:23-0400 Diastolic blood pressure 66 mm[Hg] Kate Silva MD Work Phone: [facility] 09-16-2023 11:23-0400 Heart rate 91 /min Kate Silva MD Work Phone: [facility] 09-16-2023 11:23-0400 SaO2% (BldA) [Mass fraction] 98 % Kate Silva MD Work Phone: [facility] 09-16-2023 11:23-0400 Systolic blood pressure 102 mm[Hg] Kate Silva MD Work Phone: [facility] 09-11-2023 10:03-0400 Body weight 141.07 kg Pat Zamora BELL MAKER.JAMB CUTTER Work Phone: [facility] 09-11-2023 10:03-0400 Diastolic blood pressure 86 mm[Hg] Pat Zamora BELL MAKER.JAMB CUTTER Work Phone: [facility] 09-11-2023 10:03-0400 Systolic blood pressure 124 mm[Hg] Pat Zamora BELL MAKER.JAMB CUTTER Work Phone: [facility] 08-18-2023 12:23-0500 Body temperature 98.6 [degF] Los Barber BELL MAKER.JAMB CUTTER Work Phone: [facility] 08-18-2023 12:23-0500 Body weight 140.8 kg Los Barber BELL MAKER.JAMB CUTTER Work Phone: [facility] 08-18-2023 12:23-0500 Diastolic blood pressure 80 mm[Hg] Los Barber BELL MAKER.JAMB CUTTER Work Phone: [facility] 08-18-2023 12:23-0500 Heart rate 115 /min Los Barber BELL MAKER.JAMB CUTTER Work Phone: [facility] 08-18-2023 12:23-0500 Respiratory rate 21 /min Los Braber BELL MAKER.JAMB CUTTER Work Phone: [facility] 08-18-2023 12:23-0500 SaO2% (BldA) [Mass fraction] 98 % Los Barber BELL MAKER.JAMB CUTTER Work Phone: [facility] 08-18-2023 12:23-0500 Systolic blood pressure 110 mm[Hg] Los Barber BELL MAKER.JAMB CUTTER Work Phone: [facility] 08-11-2023 12:08-0500 Body temperature 97.81 [degF] Los Barber BELL MAKER.JAMB CUTTER Work Phone: [facility] 08-11-2023 12:08-0500 Body weight 140.71 kg Los Barber BELL MAKER.JAMB CUTTER Work Phone: [facility] 08-11-2023 12:08-0500 Diastolic blood pressure 80 mm[Hg] Los Barber BELL MAKER.JAMB CUTTER Work Phone: [facility] 08-11-2023 12:08-0500 Heart rate 88 /min Los Barber BELL MAKER.JAMB CUTTER Work Phone: [facility] 08-11-2023 12:08-0500 Respiratory rate 21 /min Los Barber BELL MAKER.JAMB CUTTER Work Phone: [facility] 08-11-2023 12:08-0500 SaO2% (BldA) [Mass fraction] 97 % Los Barber BELL MAKER.JAMB CUTTER Work Phone: [facility] 08-11-2023 12:08-0500 Systolic blood pressure 110 mm[Hg] Los Barber APRN.JAMB CUTTER Work Phone: [facility] 08-11-2023 10:48-0500 Body weight 140.89 kg Nicolle Hopson MD Work Phone: [facility] 06-06-2023 15:44-0500 Body height 183.5 cm Kate Silva MD Work Phone: [facility] 06-06-2023 15:44-0500 Body temperature 97.5 [degF] Kate Silva MD Work Phone: [facility] 06-06-2023 15:44-0500 Body weight 138.35 kg Kate Silva MD Work Phone: [facility] 06-06-2023 15:44-0500 Diastolic blood pressure 72 mm[Hg] Kate Silva MD Work Phone: [facility] 06-06-2023 15:44-0500 Heart rate 108 /min Kate Silva MD Work Phone: [facility] 06-06-2023 15:44-0500 Respiratory rate 18 /min Kate Silva MD Work Phone: [facility] 06-06-2023 15:44-0500 SaO2% (BldA) [Mass fraction] 99 % Kate Silva MD Work Phone: [facility] 06-06-2023 15:44-0500 Systolic blood pressure 112 mm[Hg] Kate Silva MD Work Phone: [facility] 05-14-2023 11:22-0500 Body temperature 98.2 [degF] Marielena West APRN.JAMB CUTTER Work Phone: [facility] 05-14-2023 11:22-0500 Body weight 138.53 kg Marielena West APRN.JAMB CUTTER Work Phone: [facility] 05-14-2023 11:22-0500 Diastolic blood pressure 68 mm[Hg] Marielena West APRN.JAMB CUTTER Work Phone: [facility] 05-14-2023 11:22-0500 Heart rate 103 /min Marielena West APRN.JAMB CUTTER Work Phone: [facility] 05-14-2023 11:22-0500 Respiratory rate 16 /min Marielena West APRN.JAMB CUTTER Work Phone: [facility] 05-14-2023 11:22-0500 SaO2% (BldA) [Mass fraction] 98 % Marielena West APRN.JAMB CUTTER Work Phone: [facility] 05-14-2023 11:22-0500 Systolic blood pressure 118 mm[Hg] Marielena West APRN.JAMB CUTTER Work Phone: [facility] 04-22-2023 10:11-0400 Body height 188 cm Zuleika Avalos PA-C Work Phone: [facility] 04-22-2023 10:11-0400 Body weight 138.94 kg Zuleika Avalos PA-C Work Phone: [facility] 04-22-2023 10:11-0400 Diastolic blood pressure 74 mm[Hg] Zuleika Avalos PA-C Work Phone: [facility] 04-22-2023 10:11-0400 Heart rate 102 /min Zuleika Avalos PA-C Work Phone: [facility] 04-22-2023 10:11-0400 Systolic blood pressure 112 mm[Hg] Zuleika Avalos PA-C Work Phone: [facility] 04-09-2023 13:37-0400 Body weight 138.53 kg Kelly Plotts BE[employer] MAKER.CNM Work Phone: [facility] 04-09-2023 13:37-0400 Diastolic blood pressure 80 mm[Hg] Kelly Plotts BELL MAKER.CNM Work Phone: [facility] 04-09-2023 13:37-0400 Systolic blood pressure 118 mm[Hg] Kelly Plotts BELL MAKER.CNM Work Phone: [facility] 03-20-2023 11:10-0400 Body temperature 97.59 [degF] Keeley Maycol BELL MAKER.JAMB CUTTER Work Phone: [facility] 03-20-2023 11:10-0400 Body weight 135.44 kg Keeley Maycol BELL MAKER.JAMB CUTTER Work Phone: [facility] 03-20-2023 11:10-0400 Diastolic blood pressure 76 mm[Hg] Keeley Maycol BELL MAKER.JAMB CUTTER Work Phone: [facility] 03-20-2023 11:10-0400 Heart rate 102 /min Keeley Maycol BELL MAKER.JAMB CUTTER Work Phone: [facility] 03-20-2023 11:10-0400 Respiratory rate 18 /min Keeley Maycol BELL MAKER.JAMB CUTTER Work Phone: [facility] 03-20-2023 11:10-0400 SaO2% (BldA) [Mass fraction] 96 % Keeley Maycol BELL MAKER.JAMB CUTTER Work Phone: [facility] 03-20-2023 11:10-0400 Systolic blood pressure 102 mm[Hg] Keeley Maycol BELL MAKER.JAMB CUTTER Work Phone: [facility] 01-28-2023 14:02-0400 Diastolic blood pressure 75 mm[Hg] 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 [employer] [place] Work Phone: [facility] 01-28-2023 14:02-0400 Heart rate 112 /min 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 [employer] [place] [place] Work Phone: [facility] 01-28-2023 14:02-0400 Systolic blood pressure 111 mm[Hg] 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 [employer] [place] Work Phone: [facility] 01-28-2023 13:48-0400 Body temperature 98.6 [degF] 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 [employer] [place] [place] Work Phone: [facility] 01-28-2023 13:48-0400 Body weight 135.17 kg 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 [employer] [place] Work Phone: [facility] 01-28-2023 13:48-0400 Respiratory rate 18 /min 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 [employer] [place] [place] Work Phone: [facility] 01-28-2023 13:48-0400 SaO2% (BldA) [Mass fraction] 98 % 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 [employer] [place] Work Phone: [facility] 01-13-2023 14:14-0400 Body temperature 96.69 [degF] Gopal Yanez MD Work Phone: [facility] 01-13-2023 14:14-0400 Body weight 134.72 kg Gopal Yanez MD Work Phone: [facility] 01-13-2023 14:14-0400 Diastolic blood pressure 76 mm[Hg] Gopal Yanez MD Work Phone: [facility] 01-13-2023 14:14-0400 Heart rate 77 /min Gopal Yanez MD Work Phone: [facility] 01-13-2023 14:14-0400 SaO2% (BldA) [Mass fraction] 97 % Gopal Yanez MD Work Phone: [facility] 01-13-2023 14:14-0400 Systolic blood pressure 119 mm[Hg] Gopal Yanez MD Work Phone: [facility] 01-10-2023 11:50-0400 Body temperature 98.29 [degF] Krislyn Aberegg PA Work Phone: [facility] 01-10-2023 11:50-0400 Body weight 133.99 kg Krislyn Aberegg PA Work Phone: [facility] 01-10-2023 11:50-0400 Diastolic blood pressure 64 mm[Hg] Krislyn Aberegg PA Work Phone: [facility] 01-10-2023 11:50-0400 Heart rate 93 /min Krislyn Aberegg PA Work Phone: [facility] 01-10-2023 11:50-0400 Respiratory rate 18 /min Krislyn Aberegg PA Work Phone: [facility] 01-10-2023 11:50-0400 SaO2% (BldA) [Mass fraction] 96 % Krislyn Aberegg PA Work Phone: [facility] 01-10-2023 11:50-0400 Systolic blood pressure 92 mm[Hg] Krislyn Aberegg PA Work Phone: [facility] 12-24-2022 14:43-0400 Body height 188 cm Kera Praisler-Wood BELL MAKER.JAMB CUTTER Work Phone: [facility] 12-24-2022 14:43-0400 Body temperature 98.91 [degF] Kera Praisler-Wood BELL MAKER.JAMB CUTTER Work Phone: [facility] 12-24-2022 14:43-0400 Body weight 134.72 kg Kera Praisler-Wood BELL MAKER.JAMB CUTTER Work Phone: [facility] 12-24-2022 14:43-0400 Diastolic blood pressure 70 mm[Hg] Kera Praisler-Wood BELL MAKER.JAMB CUTTER Work Phone: [facility] 12-24-2022 14:43-0400 Heart rate 99 /min Kera Praisler-Wood BELL MAKER.JAMB CUTTER Work Phone: [facility] 12-24-2022 14:43-0400 Respiratory rate 16 /min Kera Praisler-Wood BELL MAKER.JAMB CUTTER Work Phone: [facility] 12-24-2022 14:43-0400 SaO2% (BldA) [Mass fraction] 97 % Kera Praisler-Wood BELL MAKER.JAMB CUTTER Work Phone: [facility] 12-24-2022 14:43-0400 Systolic blood pressure 98 mm[Hg] Kera Praisler-Wood BELL MAKER.JAMB CUTTER Work Phone: [facility] 11-05-2022 11:31-0400 Body height 182.9 cm Pulm Wstr Work Phone: [facility] 11-05-2022 11:31-0400 Body weight 131.09 kg Pulm Wstr Work Phone: [facility] 11-05-2022 11:31-0400 Heart rate 105 /min Pulm Wstr Work Phone: [facility] 11-05-2022 11:31-0400 Respiratory rate 14 /min Pulm Wstr Work Phone: [facility] 11-05-2022 11:31-0400 SaO2% (BldA) [Mass fraction] 100 % Pulm Wstr Work Phone: [facility] 11-04-2022 12:41-0400 Body temperature 98.4 [degF] Rebeca Foley BELL MAKER.JAMB CUTTER Work Phone: [facility] 11-04-2022 12:41-0400 Body weight 131.72 kg Rebeca Foley BELL MAKER.JAMB CUTTER Work Phone: [facility] 11-04-2022 12:41-0400 Diastolic blood pressure 86 mm[Hg] Rebeca Foley BELL MAKER.JAMB CUTTER Work Phone: [facility] 11-04-2022 12:41-0400 Heart rate 89 /min Rebeca Foley BELL MAKER.JAMB CUTTER Work Phone: [facility] 11-04-2022 12:41-0400 Respiratory rate 21 /min Rebeca Foley BELL MAKER.JAMB CUTTER Work Phone: [facility] 11-04-2022 12:41-0400 SaO2% (BldA) [Mass fraction] 98 % Rebeca Foley BELL MAKER.JAMB CUTTER Work Phone: [facility] 11-04-2022 12:41-0400 Systolic blood pressure 120 mm[Hg] Rebeca Foley BELL MAKER.JAMB CUTTER Work Phone: [facility] 10-28-2022 13:05-0400 Body height 181 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 [employer] [place] Work Phone: [facility] 10-28-2022 13:05-0400 Body weight 132 kg 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 [employer] [place] [place] Work Phone: [facility] 10-28-2022 13:05-0400 Diastolic blood pressure 82 mm[Hg] 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 [employer] [place] [place] Work Phone: [facility] 10-28-2022 13:05-0400 Heart rate 105 /min 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 [employer] [place] Work Phone: [facility] 10-28-2022 13:05-0400 Respiratory rate 16 /min 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 [employer] [place] [place] Work Phone: [facility] 10-28-2022 13:05-0400 SaO2% (BldA) [Mass fraction] 100 % 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 [employer] [place] [place] Work Phone: [facility] 10-28-2022 13:05-0400 Systolic blood pressure 118 mm[Hg] 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 [employer] [place] [place] Work Phone: [facility] 09-30-2022 10:21-0400 Body height 181.6 cm Santi Mcallister MD Work Phone: [facility] 09-30-2022 10:21-0400 Body weight 132.45 kg Santi Mcallister MD Work Phone: [facility] 09-30-2022 10:21-0400 Diastolic blood pressure 80 mm[Hg] Santi Mcallister MD Work Phone: [facility] 09-30-2022 10:21-0400 Heart rate 87 /min Santi Mcallister MD Work Phone: [facility] 09-30-2022 10:21-0400 SaO2% (BldA) [Mass fraction] 99 % Santi Mcallister MD Work Phone: [facility] 09-30-2022 10:21-0400 Systolic blood pressure 110 mm[Hg] Santi Mcallister MD Work Phone: [facility] 03-10-2023 13:07-0500 Body temperature 97.59 [degF] Hailey Jett MD Work Phone: [facility] 09-06-2022 13:07-0500 Body weight 131.54 kg Hailey Jett MD Work Phone: [facility] 09-06-2022 13:07-0500 Diastolic blood pressure 82 mm[Hg] Hailey Jett MD Work Phone: [facility] 09-06-2022 13:07-0500 Heart rate 93 /min Hailey Jett MD Work Phone: [facility] 09-06-2022 13:07-0500 SaO2% (BldA) [Mass fraction] 98 % Hailey Jett MD Work Phone: [facility] 09-06-2022 13:07-0500 Systolic blood pressure 120 mm[Hg] Hailey Jett MD Work Phone: [facility] 09-05-2022 11:05-0500 Body temperature 98.91 [degF] Krislyn Aberegg PA Work Phone: [facility] 09-05-2022 11:05-0500 Body weight 131.36 kg Krislyn Aberegg PA Work Phone: [facility] 09-05-2022 11:05-0500 Diastolic blood pressure 66 mm[Hg] Krislyn Aberegg PA Work Phone: [facility] 09-05-2022 11:05-0500 Heart rate 104 /min Krislyn Aberegg PA Work Phone: [facility] 09-05-2022 11:05-0500 Respiratory rate 18 /min Krislyn Aberegg PA Work Phone: [facility] 09-05-2022 11:05-0500 SaO2% (BldA) [Mass fraction] 98 % Krislyn Aberegg PA Work Phone: [facility] 09-05-2022 11:05-0500 Systolic blood pressure 118 mm[Hg] Krislyn Aberegg PA Work Phone: [facility] 08-22-2022 14:47-0500 Body height 181.6 cm Russell Masci DO Work Phone: [facility] 08-22-2022 14:47-0500 Body temperature 97 [degF] Russell Masci DO Work Phone: [facility] 08-22-2022 14:47-0500 Body weight 130.18 kg Russell Masci DO Work Phone: [facility] 08-22-2022 14:47-0500 Diastolic blood pressure 74 mm[Hg] Russell Masci DO Work Phone: [facility] 08-22-2022 14:47-0500 Heart rate 98 /min Russell Masci DO Work Phone: [facility] 08-22-2022 14:47-0500 SaO2% (BldA) [Mass fraction] 96 % Russell Masci DO Work Phone: [facility] 08-22-2022 14:47-0500 Systolic blood pressure 124 mm[Hg] Russell Masci DO Work Phone: [facility] 08-07-2022 12:58-0500 Body height 180.3 cm Zuleika Chris PA-C Work Phone: [facility] 08-07-2022 12:58-0500 Body weight 132 kg Zuleika Chris PA-C Work Phone: [facility] 08-07-2022 12:58-0500 Diastolic blood pressure 76 mm[Hg] Zuleika Chris PA-C Work Phone: [facility] 08-07-2022 12:58-0500 Heart rate 101 /min Zuleika Chris PA-C Work Phone: [facility] 08-07-2022 12:58-0500 Systolic blood pressure 122 mm[Hg] Zuleika Chris PA-C Work Phone: [facility] 07-09-2022 13:21-0500 Body temperature 98.4 [degF] Arthur Athy PA-C Work Phone: [facility] 07-09-2022 13:21-0500 Body weight 130.05 kg Arthur Athy PA-C Work Phone: [facility] 07-09-2022 13:21-0500 Diastolic blood pressure 72 mm[Hg] Arthur Athy PA-C Work Phone: [facility] 07-09-2022 13:21-0500 Heart rate 115 /min Arthur Athy PA-C Work Phone: [facility] 07-09-2022 13:21-0500 Respiratory rate 18 /min Arthur Athy PA-C Work Phone: [facility] 07-09-2022 13:21-0500 SaO2% (BldA) [Mass fraction] 98 % Arthur Athy PA-C Work Phone: [facility] 07-09-2022 13:21-0500 Systolic blood pressure 124 mm[Hg] Arthur Athy PA-C Work Phone: [facility] 07-05-2022 13:15-0500 SaO2% (BldA) [Mass fraction] 96 % Mirna Hayes MD Work Phone: [facility] 07-05-2022 13:00-0500 Diastolic blood pressure 75 mm[Hg] Mirna Hayes MD Work Phone: [facility] 07-05-2022 13:00-0500 Systolic blood pressure 115 mm[Hg] Mirna Hayes MD Work Phone: [facility] 07-05-2022 11:25-0500 Heart rate 80 /min Mirna Hayes MD Work Phone: [facility] 07-05-2022 11:17-0500 Respiratory rate 12 /min Mirna Hayes MD Work Phone: [facility] 07-05-2022 10:21-0500 Body temperature 96.8 [degF] Mirna Hayes MD Work Phone: [facility] 06-11-2022 13:09-0500 Body temperature 98.71 [degF] Antonio Smalls MD Work Phone: [facility] 06-11-2022 13:09-0500 Body weight 130.82 kg Antonio Smalls MD Work Phone: [facility] 06-11-2022 13:09-0500 Heart rate 96 /min Anotnio Smalls MD Work Phone: [facility] 06-11-2022 13:09-0500 Respiratory rate 18 /min Antonio Smalls MD Work Phone: [facility] 06-11-2022 13:09-0500 SaO2% (BldA) [Mass fraction] 98 % Antonio Smalls MD Work Phone: [facility] 05-30-2022 11:12-0500 Body weight 131.09 kg Suyapa Recinos MD Work Phone: [facility] 05-30-2022 11:12-0500 Diastolic blood pressure 78 mm[Hg] Suyapa Recinos MD Work Phone: [facility] 05-30-2022 11:12-0500 Systolic blood pressure 116 mm[Hg] Suyapa Recinos MD Work Phone: [facility] 05-07-2022 13:33-0500 Body height 180.3 cm Annia Hogan BELL MAKER.JAMB CUTTER Work Phone: [facility] 05-07-2022 13:33-0500 Body weight 132 kg Annia Hogan BELL MAKER.JAMB CUTTER Work Phone: [facility] 05-07-2022 13:33-0500 Diastolic blood pressure 82 mm[Hg] Annia Hogan BELL MAKER.JAMB CUTTER Work Phone: [facility] 05-07-2022 13:33-0500 Heart rate 93 /min Annia Hogan BELL MAKER.JAMB CUTTER Work Phone: [facility] 05-07-2022 13:33-0500 Systolic blood pressure 118 mm[Hg] Annia Hogan JAMI Work Phone: [facility] 04-18-2022 15:58-0400 Body temperature 97 [degF] Antonio Smalls MD Work Phone: [facility] 04-18-2022 15:58-0400 Body weight 130.64 kg Antonio Smalls MD Work Phone: [facility] 04-18-2022 15:58-0400 Heart rate 100 /min Antonio Smalls MD Work Phone: [facility] 04-18-2022 15:58-0400 Respiratory rate 20 /min Antonio Smalls MD Work Phone: [facility] 04-11-2022 02:23-0400 Diastolic blood pressure 86 mm[Hg] [facility] Work Phone: 04-11-2022 02:23-0400 Heart rate 76 /min [facility] Work Phone: 04-11-2022 02:23-0400 Respiratory rate 14 /min [facility] Work Phone: 04-11-2022 02:23-0400 SaO2% (BldA) [Mass fraction] 98 % [facility] Work Phone: 04-11-2022 02:23-0400 Systolic blood pressure 133 mm[Hg] [facility] Work Phone: 04-11-2022 00:49-0400 Body height 185.42 cm [facility] Work Phone: 04-11-2022 00:49-0400 Body mass index (BMI) [Ratio] 38.9 kg/m2 [facility] Work Phone: 04-11-2022 00:49-0400 Body temperature 98.2 [degF] [facility] Work Phone: 04-11-2022 00:49-0400 Body weight 133.7 kg [facility] Work Phone: 03-29-2022 15:16-0400 Body weight 130.64 kg Suyapa Recinos MD Work Phone: [facility] 03-29-2022 15:16-0400 Diastolic blood pressure 78 mm[Hg] Suyapa Recinos MD Work Phone: [facility] 03-29-2022 15:16-0400 Systolic blood pressure 116 mm[Hg] Suyapa Recinos MD Work Phone: [facility] 03-12-2022 13:35-0400 Body height 182.5 cm Antonio Smalls MD Work Phone: [facility] 03-12-2022 13:35-0400 Body temperature 97.59 [degF] Antonio Smalls MD Work Phone: [facility] 03-12-2022 13:35-0400 Body weight 129.96 kg Antonio Smalls MD Work Phone: [facility] 03-12-2022 13:35-0400 Diastolic blood pressure 92 mm[Hg] Antonio Smalls MD Work Phone: [facility] 03-12-2022 13:35-0400 Heart rate 100 /min Antonio Smalls MD Work Phone: [facility] 03-12-2022 13:35-0400 Respiratory rate 20 /min Antonio Smalls MD Work Phone: [facility] 03-12-2022 13:35-0400 Systolic blood pressure 118 mm[Hg] Antonio Smalls MD Work Phone: [facility] 02-27-2022 14:56-0400 Body temperature 98.71 [degF] Kera Joseph APRN.JAMB CUTTER Work Phone: [facility] 02-27-2022 14:56-0400 Body weight 130.36 kg Kera Joseph APRN.JAMB CUTTER Work Phone: [facility] 02-27-2022 14:56-0400 Diastolic blood pressure 86 mm[Hg] Kera Praisler-Wood BELL MAKER.JAMB CUTTER Work Phone: [facility] 02-27-2022 14:56-0400 Heart rate 98 /min Kera Praisler-Wood BELL MAKER.JAMB CUTTER Work Phone: [facility] 02-27-2022 14:56-0400 Respiratory rate 21 /min Kera Praisler-Wood BELL MAKER.JAMB CUTTER Work Phone: [facility] 02-27-2022 14:56-0400 SaO2% (BldA) [Mass fraction] 99 % Kera Praisler-Wood BELL MAKER.JAMB CUTTER Work Phone: [facility] 02-27-2022 14:56-0400 Systolic blood pressure 114 mm[Hg] Kera Praisler-Wood BELL MAKER.JAM[employer] CUTTER Work Phone: [facility] 02-20-2022 18:09-0400 Body temperature 99 [degF] Kera Praisler-Wood BELL MAKER.JAMB CUTTER Work Phone: [facility] 02-20-2022 18:09-0400 Body weight 129.82 kg Kera Praisler-Wood BELL MAKER.JAMB CUTTER Work Phone: [facility] 02-20-2022 18:09-0400 Diastolic blood pressure 90 mm[Hg] Kera Praisler-Wood BELL MAKER.JAMB CUTTER Work Phone: [facility] 02-20-2022 18:09-0400 Heart rate 108 /min Kera Praisler-Wood BELL MAKER.JAMB CUTTER Work Phone: [facility] 02-20-2022 18:09-0400 Respiratory rate 21 /min Kera Praisler-Wood BELL MAKER.JAMB CUTTER Work Phone: [facility] 02-20-2022 18:09-0400 SaO2% (BldA) [Mass fraction] 100 % Kera Praisler-Wood BELL MAKER.JAMB CUTTER Work Phone: [facility] 02-20-2022 18:09-0400 Systolic blood pressure 118 mm[Hg] Kera Praisler-Wood BELL MAKER.JAMB CUTTER Work Phone: [facility] 01-26-2022 01:59-0400 Body height 185.42 cm [facility] Work Phone: 01-26-2022 01:59-0400 Body mass index (BMI) [Ratio] 38.6 kg/m2 [facility] Work Phone: 01-26-2022 01:59-0400 Body temperature 98.4 [degF] [facility] Work Phone: 01-26-2022 01:59-0400 Body weight 132.9 kg [facility] Work Phone: 01-26-2022 01:59-0400 Diastolic blood pressure 82 mm[Hg] [facility] Work Phone: 01-26-2022 01:59-0400 Heart rate 119 /min [facility] Work Phone: 01-26-2022 01:59-0400 Respiratory rate 18 /min [facility] Work Phone: 01-26-2022 01:59-0400 SaO2% (BldA) [Mass fraction] 100 % [facility] Work Phone: 01-26-2022 01:59-0400 Systolic blood pressure 143 mm[Hg] [facility] Work Phone: Encounters Encounter Date Encounter Type Care Provider Facility Start: 05-04-2025 End: 05-04-2025 ambulatory KATE Scott SILVA Facility:[facility] Start: 04-25-2025 End: 04-25-2025 ambulatory KATE D SHIRA Facility:[facility] Start: 04-15-2025 End: 04-15-2025 ambulatory Radha Gagnon Facility:[facility] Start: 04-02-2025 End: 04-02-2025 ambulatory ARIA RUSSELL Facility:[facility] Start: 02-18-2025 End: 02-18-2025 ambulatory KATE SILVA Facility:[facility] Start: 02-14-2025 End: 02-14-2025 Telephone encounter Kate Silva MD Work Phone: [facility] [place] Comment on above: Refill Request Start: 02-13-2025 End: 02-14-2025 Refill Kate Silva MD Work Phone: [facility] [place] Comment on above: Refill Request Start: 02-09-2025 End: 02-09-2025 ambulatory KATE SILVA Facility:[facility] Start: 01-11-2025 End: 01-13-2025 Refill Kate Silva MD Work Phone: [facility] [place] Comment on above: Refill Request Start: 01-03-2025 End: 01-03-2025 ambulatory KATE SILVA Facility:[facility] Start: 01-03-2025 End: 01-03-2025 Patient encounter [...] Start: 12-06-2024 End: 12-06-2024 ambulatory KATE SILVA Facility:[facility] Start: 12-02-2024 End: 12-02-[address] Yuly Aquino MD -Cardiovascular Services Work Phone: Start: 12-02-2024 End: 12-02-2024 Emergency department patient visit Dr. Kate Silva MD Work Phone: -Emergency Department Work Phone: Start: 12-02-2024 End: 12-20-[address] Kate Silva MD Work Phone: [facility] Work Phone: Comment on above: Pvc s Start: 12-02-2024 End: 12-02-2024 ambulatory Robinsonadeluz Aquino Facility:[facility] Start: 11-23-2024 End: 12-21-2024 [facility] Work Phone: Neurology Comment on above: CMN Start: 11-21-2024 End: 11-24-2024 ambulatory [facility] [place] Comment on above: Blood sugar Start: 11-13-2024 End: 11-15-2024 ambulatory Hailey Jett MD Work Phone: Neurology Comment on above: Question Start: 11-08-2024 End: 11-08-2024 [facility] Start: 11-08-2024 End: 11-08-2024 Patient encounter procedure Sher Hollingsworth APRN.JAMB CUTTER Work Phone: [facility] [place] Comment on above: Generalized anxiety disorder with [...] Start: 11-02-2024 End: 11-02-2024 ambulatory KATE SILVA Facility:[facility] Start: 11-02-2024 End: 11-02-2024 Patient encounter procedure Sher Hollingsworth BELL MAKER.JAMB CUTTER Work Phone: [facility] [place] Comment on above: Generalized anxiety disorder with panic attacks (Primary Dx); Panic attacks; Palpitations; Insomnia due to mental disorder; Post-traumatic stress disorder Start: 11-01-2024 End: 01-01-2025 Follow-up encounter Estrellita Kumar BELL MAKER.JAMB CUTTER Work Phone: Neurology Start: 10-28-2024 End: 10-29-2024 Emergency department patient visit Dr. Julianna Hughes DO -Emergency Department Work Phone: Start: 10-26-2024 End: 10-26-2024 Patient encounter procedure Sher Hollingsworth BELL MAKER.JAMB CUTTER Work Phone: [facility] [place] Comment on above: Generalized anxiety disorder with panic attacks (Primary Dx); Lightheaded; Dizziness; Numbness and tingling; Palpitations; Type 2 diabetes mellitus without complication, without long-term current use of insulin (HCC) Start: 10-26-2024 End: 10-27-2024 ambulatory [facility] Provider [facility] [place] Comment on above: Med question Start: 10-25-2024 End: 10-25-2024 Emergency department patient visit Dr. Kate Silva MD Work Phone: -Emergency Department Work Phone: Start: 10-22-2024 End: 10-22-2024 ambulatory KATE SILVA Facility:[facility] Start: 10-20-2024 End: 10-20-2024 Office outpatient visit 25 minutes Kate Silva MD Work Phone: Internal [facility] [place] Comment on above: Acute bronchitis, un specified organism (Primary Dx); Lightheaded; Dizziness; Moderate episode of recurrent major depressive disorder (HCC); Generalized anxiety disorder with panic attacks; Dandruff; Seborrheic dermatitis; Attention deficit hyperactivity disorder (ADHD), combined type Start: 10-20-2024 End: 10-20-2024 ambulatory KATE SILVA Facility:[facility] Start: 10-16-2024 End: 10-18-2024 ambulatory [facility] Provider Internal Medicine [place] Comment on above: Toñito question Start: 10-13-2024 End: 10-13-2024 Emergency department patient visit DR KATE SILVA MD Facility:[facility] Start: 10-12-2024 End: 10-14-2024 Follow-up encounter Pat Ferrer APRN.JAMB CUTTER Work Phone: OB/Gynecology Comment on above: Results Start: 10-11-2024 End: 10-11-2024 ambulatory Gopal Yanez MD Work Phone: Hematology/Oncology Comment on above: Leukocytosis, unspec ified type (Primary Dx) Start: 10-11-2024 End: 10-11-2024 Patient encounter procedure Gopal Yanez MD Work Phone: Hematology/Oncology Start: 10-11-2024 End: 10-11-2024 ambulatory KATE SILVA Facility:[facility] Start: 10-11-2024 End: 10-11-2024 Patient encounter procedure Pat Ferrer APRN.JAMB CUTTER Work Phone: OB/Gynecology Comment on above: Vulvar itching (Prim nafisa Dx); Missed menses Start: 10-07-2024 End: 10-08-2024 Telephone encounter Gopal Yanez MD Work Phone: Hematology/Oncology Comment on above: Appointment Patient Question Start: 10-06-2024 End: 10-06-2024 Emergency department patient visit Dr. Kate Silva MD Work Phone: -Emergency Department Work Phone: Start: 10-06-2024 End: 10-06-2024 ambulatory Pat Ferrer APRN.JAMB CUTTER Work Phone: OB/Gynecology Comment on above: Question Start: 10-01-2024 End: 10-01-2024 ambulatory KATE SILVA Facility:[facility] Start: 10-01-2024 End: 10-01-2024 Office outpatient [...] Start: 09-27-2024 End: 09-27-2024 ambulatory Pat Ferrer BELL MAKER.JAMB CUTTER Work Phone: OB/Gynecology Comment on above: Question Start: 09-16-2024 End: 09-16-2024 Refill Kate Silva MD Work Phone: Internal [facility] [place] Comment on above: Refill Request Start: 09-13-2024 End: 09-13-2024 Refill Sher Hollingsworth BELL MAKER.JAMB CUTTER Work Phone: Internal Medicine [place] Comment on above: Refill Request Start: 08-30-2024 End: 08-30-2024 ambulatory KATE SILVA Facility:[facility] Start: 08-30-2024 End: 08-30-2024 Patient encounter procedure Santi Mcallister MD Work Phone: Cardiology Comment on above: Marfan's syndrome (P rimary Dx); PVC (premature ventricular contraction) Start: 08-24-2024 End: 08-24-2024 ambulatory KATE SILVA Facility:[facility] Start: 08-24-2024 End: 08-24-2024 Office outpatient visit 25 minutes Radha Long PA-C Work Phone: [facility] Comment on above: Acute recurrent sinu sitis, unspecified location (Primary Dx) Start: 08-23-2024 End: 09-13-2024 ambulatory Kate Silva MD Work Phone: Internal [facility] [place] Comment on above: Test results Start: 08-09-2024 End: 08-09-2024 ambulatory KATE SILVA Facility:[facility] Start: 08-09-2024 End: 08-09-2024 ambulatory KATE SILVA Facility:[facility] Start: 08-09-2024 End: 08-09-2024 Office outpatient [...] Refill Estrellita Molina PA-C Work Phone: [facility] [place] Comment on above: Refill Request Start: 07-13-2024 End: 07-13-2024 ambulatory Pat Adrianf BELL MAKER.JAMB CUTTER Work Phone: OB/Gynecology Comment on above: Period Start: 06-23-2024 End: 07-14-2024 ambulatory Sher Darrick BELL MAKER.JAMB CUTTER Work Phone: Internal Medicine [place] Comment on above: Shot Start: 06-17-2024 End: 06-17-2024 Refill Sher Darrick BELL MAKER.JAMB CUTTER Work Phone: Pediatrics [place] Comment on above: Refill Request Start: 06-01-2024 End: 06-01-2024 ambulatory Hailey Jett MD Work Phone: Neurology Comment on above: Sleep mask Start: 05-25-2024 End: 06-03-2024 ambulatory Sher Hollingsworth BELL MAKER.JAMB CUTTER Work Phone: Internal Medicine [place] Comment on above: Trulicty question Start: 05-19-2024 End: 05-19-2024 ambulatory KATE SILVA Facility:[facility] Start: 05-19-2024 End: 05-19-2024 Patient encounter procedure Arthur Joseph PA-C Work Phone[facility] Comment on above: Acute non-recurrent frontal sinusitis (Primary Dx) Start: 05-16-2024 End: 05-18-2024 Refill Sher Darrick BELL MAKER.JAMB CUTTER Work Phone: [facility] [place] Comment on above: Refill Request Start: 05-13-2024 End: 05-13-2024 ambulatory Pat Agata BELL MAKER.JAMB CUTTER Work Phone: OB/Gynecology Comment on above: Question Start: 05-12-2024 End: 05-12-2024 ambulatory KATE SILVA Facility:[facility] Start: 05-12-2024 End: 05-12-2024 Patient encounter procedure Rebeca Beasley APRN.CNM Work Phone: OB/Gynecology Comment on above: Vaginal discharge (P rimary Dx); Vaginal itching; Vulvar itching Start: 05-03-2024 End: 05-03-2024 Telephone encounter Sher Hollingsworth APRN.JAMB CUTTER Work Phone: Internal Medicine [place] Comment on above: Results Start: 04-30-2024 End: 04-30-2024 Patient encounter procedure Sher Porterr BELL MAKER.JAMB CUTTER Work Phone: Internal Medicine [place] Comment on above: Type 2 diabetes alexus itus without complication, without long- term current use of insulin (HCC) (Primary Dx); Urinary frequency; Migraine without status migrainosus, not intractable, unspecified migraine type; Vaginal yeast infection Start: 04-27-2024 End: 05-13-2024 ambulatory Pat Zamora BELL MAKER.JAMB CUTTER Work Phone: OB/Gynecology Comment on above: Question Start: 04-16-2024 End: 04-19-2024 ambulatory Sher Darrick BELL MAKER.JAMB CUTTER Work Phone: Internal Medicine [place] Comment on above: Question Start: 04-13-2024 End: 04-14-2024 Refill Sher Darrick BELL MAKER.JAMB CUTTER Work Phone: [facility] [place] Comment on above: Refill Request Start: 04-12-2024 End: 04-13-2024 ambulatory Pat Agata BELL MAKER.JAMB CUTTER Work Phone: OB/Gynecology Comment on above: Yest infection Start: 03-20-2024 End: 03-22-2024 ambulatory Sher Darrick BELL MAKER.JAMB CUTTER Work Phone: [facility] [place] Comment on above: Truliicty question Start: 03-19-2024 End: 03-19-2024 Patient encounter procedure Sher Darrick BELL MAKER.JAMB CUTTER Work Phone: Internal Medicine [place] Comment on above: Type 2 diabetes alexus itus without complication, without long- term current use of insulin (HCC) (Primary Dx); Fatty liver; Obesity, Class III, BMI >= 40; Vapes nicotine containing substance; Encounter for immunization; Encounter for therapeutic drug monitoring; Screening for lipid disorders Start: 03-15-2024 End: 03-15-2024 Refill Hemalatha Dejesus MD Work Phone: [facility] [place] Comment on above: Refill Request Start: 03-04-2024 End: 03-05-2024 Patient encounter procedure Pat Zamora BELL MAKER.JAMB CUTTER Work Phone: OB/Gynecology Comment on above: Vaginal yeast infect ion (Primary Dx) Refill Request Start: 03-02-2024 End: 03-02-2024 Patient encounter procedure Rebeca Foley BELL MAKER.JAMB CUTTER Work Phone: [facility] Comment on above: Rhinosinusitis (Prim nafisa Dx) Start: 02-18-2024 End: 02-18-2024 ambulatory Pat Zamora BELL MAKER.JAMB CUTTER Work Phone: OB/Gynecology Comment on above: Question Start: 02-14-2024 End: 02-16-2024 ambulatory Sher Darrick BELL MAKER.JAMB CUTTER Work Phone: Internal Medicine [place] Comment on above: Question Start: 02-10-2024 End: 02-10-2024 Patient encounter procedure Pat Zamora BELL MAKER.JAMB CUTTER Work Phone: OB/Gynecology Comment on above: Vaginal discharge (P rimary Dx) Refill Request Start: 02-08-2024 Refill Hemalatha Dejesus MD Work Phone: [facility]s [place] Comment on above: Refill Request Start: 02-02-2024 End: 02-02-2024 Patient encounter procedure Gerardo Holder MD Work Phone: Orthopaedics Comment on above: Right hand pain Start: 01-27-2024 End: 01-27-2024 Patient encounter procedure Sher Hollingsworth BELL MAKER.JAMB CUTTER Work Phone: Internal Medicine [place] Comment on above: Type 2 diabetes alexus itus without complication, without long- term current use of insulin (HCC) (Primary Dx); Fatty liver; Obesity, Class III, BMI >= 40; Adenomyosis Start: 01-26-2024 Telephone encounter Pat carrizales BELL MAKER.JAMB CUTTER Work Phone: OB/Gynecology Comment on above: Results Start: 01-23-2024 End: 01-23-2024 ambulatory [facility] OB/Gynecology Start: 01-23-2024 End: 01-23-2024 Patient encounter procedure i Tech 1 [employer] [facility] OB/Gynecology Start: 01-22-2024 ambulatory Pat Ferrer BELL MAKER.JAMB CUTTER Work Phone: OB/Gynecology Comment on above: No period Start: 01-09-2024 Refill Sher Hollingsworth BELL MAKER.JAMB CUTTER Work Phone: [facility] Comment on above: Refill Request Start: 12-28-2023 ambulatory Estrellita Molina PA-C Work Phone: Gastroenterology [place] Comment on above: Acid reflex pills Start: 12-22-2023 End: 12-22-2023 Subsequent hospital visit by physician X[facility] [place] Work Phone: Radiology Comment on above: Foot injury, left, i nitial encounter [S99.922A] Start: 12-22-2023 End: 12-22-2023 Patient encounter procedure Kera Joseph APRN.JAMB CUTTER Work Phone: [facility] Comment on above: Foot injury, left, i nitial encounter (Primary Dx) Start: 12-17-2023 End: 12-17-2023 Subsequent hospital visit by physician Kailey [facility] [place] Work Phone: Radiology Comment on above: Right hand pain [M79 .641] Start: 12-17-2023 End: 12-17-2023 Patient encounter procedure Terrence Hill BELL MAKER.JAMB CUTTER Work Phone: [facility] Comment on above: Right hand pain (Carmen nick Dx) Start: 12-15-2023 ambulatory Sher Hollingsworth BELL MAKER.JAMB CUTTER Work Phone: Internal Medicine [place] Comment on above: Ritalin Yeast pill Start: 12-15-2023 Telephone encounter Pat carrizales BELL MAKER.JAMB CUTTER Work Phone: OB/Gynecology Comment on above: Results Start: 12-15-2023 End: 12-15-2023 Patient encounter procedure Sher Hollingsworth BELL MAKER.JAMB CUTTER Work Phone: Internal Medicine [place] Comment on above: Migraine without sta tus migrainosus, not intractable, unspecified migraine type (Primary Dx); Attention deficit hyperactivity disorder (ADHD), combined type; Impacted cerumen of right ear; Acute otitis externa of right ear, unspecified type Start: 12-12-2023 End: 12-12-2023 Patient encounter procedure Patgigi BazziAgata BELL MAKER.JAMB CUTTER Work Phone: OB/Gynecology Comment on above: Vaginal itching (Carmen nick Dx) Start: 12-10-2023 Refill Sher Hollingsworth BELL MAKER.JAMB CUTTER Work Phone: Internal Medicine [place] Comment on above: Refill Request Start: 12-02-2023 End: 12-02-2023 Patient encounter procedure Marielena West BELL MAKER.JAMB CUTTER Work Phone: [facility] Comment on above: Right upper quadrant abdominal pain (Primary Dx) Start: 11-30-2023 ambulatory Estrellita Molina PA-C Work Phone: [facility] [place] Comment on above: Liver biopsy Start: 11-21-2023 End: 11-21-2023 ambulatory RASTA DUMONT Facility:[facility] Start: 11-18-2023 Chart abstracting [facility] Main Work Phone: Neurology Comment on above: CMN Start: 11-16-2023 ambulatory Estrellita Morseadalberto PA-C Work Phone: [facility] [place] Comment on above: Poop test Pills questions Start: 11-13-2023 Refill Kate novoa MD Work Phone: Internal Medicine [place] Comment on above: Refill Request Start: 11-11-2023 Orders Only Joel Bai RN [facility] Comment on above: NAFLD (nonalcoholic fatty liver disease) (Primary Dx) Start: 11-03-2023 ambulatory Estrellita Morseadalberto PA-C Work Phone: [facility] [place] Comment on above: Liver biopsy Start: 10-22-2023 End: 10-22-2023 Patient encounter procedure [facility]adalberto [facility]C [facility] Comment on above: NAFLD (nonalcoholic fatty liver disease) (Primary Dx); Diarrhea, unspecified type; Gastroesophageal reflux disease, unspecified whether esophagitis present Start: 10-20-2023 ambulatory Suyapa patel MD Work Phone: OB/Gynecology Comment on above: No period Start: 10-09-2023 End: 10-09-2023 Patient encounter procedure Aria BURGESS Work Phone: [facility] Comment on above: Sore throat (Primary Dx); Bacterial sinusitis Start: 09-16-2023 End: 09-16-2023 Office outpatient visit 25 minutes Kate Silva MD Work Phone: Internal Medicine [place] Comment on above: Migraine without sta tus [...] End: 08-18-2023 Patient encounter procedure Los Barber APRN.JAMB CUTTER Work Phone: [facility] Comment on above: Exposure to SARS-ass ociated coronavirus (Primary Dx) Start: 08-13-2023 Refill Nicolle ramos MD Work Phone: OB/Gynecology Start: 08-11-2023 End: 08-11-2023 Patient encounter procedure Los Barber APRN.JAMB CUTTER Work Phone: [facility] [place] [facility] Comment on above: Contusion of [...] with patient Gopal Yanez MD Work Phone: [facility] Start: 06-06-2023 End: 06-06-2023 Office outpatient visit 25 minutes Kate Silva MD Work Phone: Internal Medicine [place] Comment on above: Attention deficit hy peractivity [...] Kate novoa MD Work Phone: Internal Medicine [place] Comment on above: Refill Request Start: 05-15-2023 Telephone encounter Yared duncan APRN.JAMB CUTTER Work Phone: [facility] [facility] Comment on above: Results Start: 05-14-2023 End: 05-14-2023 Patient encounter procedure Marielena West APRN.JAMB CUTTER Work Phone: [facility] [facility] Comment on above: Vaginal odor (Primar y Dx) Start: 04-28-2023 End: 04-28-2023 Subsequent hospital visit by physician [facility] Work Phone: Radiology Comment on above: Fatty liver [K76.0] Start: 04-22-2023 End: 04-22-2023 Patient encounter procedure Zuleika Avalos PA-C Work Phone: [facility] [place] Comment on above: Fatty liver (Primary Dx); Elevated LFTs; Intermittent diarrhea Start: 04-17-2023 End: 04-17-2023 Subsequent hospital visit by physician [facility] Work Phone: Radiology Comment on above: Secondary amenorrhea [N91.1] Start: 04-15-2023 Refill Sher Hollingsworth APRN.JAMB CUTTER Work Phone: Internal Medicine [place] Comment on above: Refill Request Start: 04-09-2023 End: 04-09-2023 Patient encounter procedure Kelly Nunez APRN.CNM Work Phone: OB/Gynecology Comment on above: Secondary amenorrhea (Primary Dx); Missed menses Start: 03-20-2023 End: 03-20-2023 Patient encounter procedure Keeley Severino APRN.JAMB CUTTER Work Phone: [facility] Comment on above: Protracted URI (Prim nafisa Dx); Non-recurrent acute serous otitis media of right ear Start: 03-17-2023 ambulatory Suyapa patel MD Work Phone: OB/Gynecology Comment on above: Provera Start: 03-11-2023 Refill Sher Hollingsworth APRN.JAMB CUTTER Work Phone: Internal Medicine [place] Comment on above: Refill Request Start: 02-25-2023 End: 02-25-2023 ambulatory Hailey Jett MD Work Phone: Neurology Comment on above: ESTEBAN (obstructive sle ep apnea) (Primary Dx); ESTEBAN on CPAP Start: 02-25-2023 End: 02-25-2023 Telemedicine consultation with patient Hailey Jett MD Work Phone: [facility] Start: 02-19-2023 Telephone encounter Hailey Jett MD Work Phone: Neurology Comment on above: PAP Therapy Follow U p (DOWNLOAD) Start: 01-31-2023 Chart abstracting [facility] Main Work Phone: Neurology Comment on above: CMN Start: 01-29-2023 ambulatory Hialey Jett MD Work Phone: NEUROLOGY Comment on above: C pap Start: 01-28-2023 End: 01-28-2023 Office outpatient visit 25 minutes 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 APRN.VICE PRESIDENT & GENERAL MANAGER [employer] Work Phone: Internal Medicine [place] Comment on above: Attention deficit hy peractivity [...] rimary Dx) Start: 01-08-2023 Refill 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 APRN.VICE PRESIDENT & GENERAL MANAGER [employer] Work Phone: [facility] [place] Comment on above: Refill Request Start: 01-02-2023 ambulatory Hailey Jett MD Work Phone: NEUROLOGY Comment on above: Number to call to sc hedule Start: 12-28-2022 Chart abstracting [facility] Main Work Phone: Neurology Start: 12-24-2022 End: 12-24-2022 Patient encounter procedure Kera Joseph BELL MAKER.JAMB CUTTER Work Phone: [facility] Comment on above: Sore throat (Primary Dx); Other acute nonsuppurative otitis media of right ear, recurrence not specified Start: 12-24-2022 ambulatory Hailey Jett MD Work Phone: NEUROLOGY Comment on above: Heart question Start: 12-11-2022 ambulatory Santi Mcallister MD Work Phone: Cardiology Comment on above: Heart Start: 12-05-2022 Refill Zuleika adame PA-C Work Phone: [facility] [place] Comment on above: Refill Request Start: 11-28-2022 ambulatory Sher Hollingsworth BELL MAKER.JAMB CUTTER Work Phone: Internal Medicine [place] Comment on above: Bv Start: 11-09-2022 Refill 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 [employer] Work Phone: Internal Medicine [place] Comment on above: Refill Request Start: 11-08-2022 End: 11-08-2022 ambulatory Hailey Jett MD Work Phone: NEUROLOGY Comment on above: ESTEBAN (obstructive sle ep apnea) (Primary Dx) Start: 11-08-2022 End: 11-08-2022 Telemedicine consultation with patient Hailey Jett MD Work Phone: [facility] Start: 11-05-2022 End: 11-05-2022 ambulatory [facility] Work Phone: [facility] Comment on above: Spirometry Start: 11-05-2022 End: 11-05-2022 Patient encounter procedure [facility] Work Phone: [facility] Start: 11-04-2022 End: 11-04-2022 Patient encounter procedure Rebeca Foley BELL MAKER.JAMB CUTTER Work Phone: [facility] Comment on above: URI, acute (Primary Dx); Acute otitis media, left Start: 10-31-2022 ambulatory UNKNOWN PROVIDER Facili ty:[facility] Start: 10-28-2022 End: 10-28-2022 Office outpatient visit 25 minutes 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 APRN.VICE PRESIDENT & GENERAL MANAGER [employer] Work Phone: Internal [facility] [place] Comment on [...] Start: 10-11-2022 End: 10-12-2022 ambulatory HAILEY JETT Facility:[facility] Start: 10-09-2022 Refill Zuleika adame PA-C Work Phone: [facility] [place] Comment on above: Refill Request Returning Patient's [...] Patient encounter procedure Aria BURGESS Work Phone: [facility] Comment on above: Sore throat [...] above: Provera Start: 08-22-2022 End: 08-22-2022 ambulatory Russlel Burris DO Work Phone: Hematology/Oncology Comment on above: Leukocytosis, unspec ified type (Primary Dx); Thrombocytosis Start: 08-22-2022 End: 08-22-2022 Patient encounter procedure Russell Burris DO Work Phone: [facility] Start: 08-14-2022 Refill Antonio cheatham MD Work Phone: [facility] [place] Comment on above: Refill Request Start: 08-08-2022 ambulatory Zuleika adame [facility]-C [facility] Comment on above: Question regarding V ITAMIN D 25 HYDROXY Start: 08-07-2022 End: 08-07-2022 Patient encounter procedure Zuleika Perez PA-C [facility] Comment on above: Fatty liver (Primary Dx); Malaise and fatigue Start: 08-05-2022 Refill Antonio cheatham MD Work Phone: [facility] [place] Comment on above: Refill Request Start: 07-18-2022 Telephone encounter Johnson Painter MD Work Phone: [facility] Comment on above: Results (BV, Yeimy ) Start: 07-09-2022 End: 07-09-2022 Refill Antonio Smalls MD Work Phone: [facility] [place] Comment on above: Refill Request Sinobronchitis (Prim nafisa Dx) Start: 07-07-2022 Refill Antonio cheatham MD Work Phone: [facility] [place] Comment on above: Refill Request Start: 07-05-2022 End: 07-05-2022 Subsequent hospital visit by physician Mirna Hayes MD Work Phone: [facility] Comment on above: Fatty liver [K76.0] Start: 07-03-2022 Refill Antonio cheatham MD Work Phone: [facility] [place] Comment on above: Refill Request Start: 06-30-2022 Refill Zuleika adame PA-C Work Phone: [facility] Comment on above: Refill Request Start: 06-13-2022 Telephone encounter Zuleika Ambrociolan PA-C Work Phone: [facility] Comment on above: Results Start: 06-11-2022 E-mail encounter fro m caregiver Zuleika Chris PA-C Work Phone: [facility] Start: 06-11-2022 Follow-up encounter Zuleika Perez PA-C Work Phone: [facility] Comment on above: Fibroscan follow up Refill Request Start: 06-11-2022 End: 06-11-2022 Patient encounter procedure Antonio Smalls MD Work Phone: [facility] [place] Comment on above: Chronic rhinitis (Pr imary Dx); Dysfunction of both eustachian tubes; Chronic cough; Shortness of breath Start: 06-07-2022 Refill Antonio cheatham MD Work Phone: [facility] [place] Comment on above: Refill Request Start: 06-06-2022 Telephone encounter Antonio Smalls MD Work Phone: [facility] [place] Comment on above: Refill Request Start: 05-30-2022 End: 05-30-2022 Refill Suyapa Recinso MD Work Phone: OB/Gynecology Comment on above: Refill Request Medicine question Irregular menstrual cycle (Primary Dx) Start: 05-24-2022 Telephone encounter James hartley MD Work Phone: OB/Gynecology Comment on above: Patient Question Start: 05-09-2022 Orders Only Antonio cheatham MD Work Phone: [facility] [place] Comment on above: Attention deficit hy peractivity disorder (ADHD), combined type Start: 05-07-2022 End: 05-07-2022 Patient encounter procedure Annia Hogan BELL MAKER.JAMB CUTTER Work Phone: [facility] [place] Comment on above: Fatty liver (Primary Dx); Abnormal laboratory test; Malaise and fatigue; Diarrhea, unspecified type; Abdominal pain, unspecified abdominal location; Nausea Start: 05-03-2022 ambulatory Suyapa patel MD Work Phone: OB/Gynecology Comment on above: Medication question Start: 04-30-2022 Telephone encounter Antonio Smalls MD Work Phone: [facility] [place] Comment on above: Ultrasound results Start: 04-29-2022 End: 04-29-2022 Subsequent hospital visit by physician [facility] Work Phone: Radiology Comment on above: Abnormal laboratory test [R89.9] Start: 04-18-2022 End: 04-18-2022 Patient encounter procedure Antonio Smalls MD Work Phone: [facility] [place] Comment on above: Abnormal laboratory test (Primary Dx); Malaise and fatigue; Diarrhea, unspecified type; Abdominal pain, unspecified abdominal location Start: 04-18-2022 Telephone encounter Antonio Smalls MD Work Phone: [facility] [place] Comment on above: Referral Request Start: 04-11-2022 End: 04-11-2022 [facility] Start: 04-05-2022 Telephone encounter Antonio Smalls MD Work Phone: [facility] [place] Comment on above: Results (not normal) Start: 04-04-2022 Telephone encounter Antonio Smalls MD Work Phone: [facility] [place] Comment on above: Results Start: 03-29-2022 End: 03-29-2022 Patient encounter procedure Suyapa Recinos MD Work Phone: OB/Gynecology Comment on above: Skin tag of anus (Pr imary Dx); Irregular menstrual cycle Start: 03-12-2022 Telephone encounter Antonio Smalls MD Work Phone: [facility] [place] Comment on above: Referral Request Start: 03-12-2022 End: 03-12-2022 Patient encounter procedure Antonio Smalls MD Work Phone: [facility] [place] Comment on above: Attention deficit hy peractivity disorder (ADHD), combined type (Primary Dx); Migraine without status migrainosus, not intractable, unspecified migraine type; Anxiety; Pain in right foot; Encounter for immunization Start: 03-01-2022 Telephone encounter Kera Joseph APRN.JAMB CUTTER Work Phone: [facility] Comment on above: Results Start: 02-27-2022 End: 02-27-2022 Patient encounter procedure Kera Joseph APRN.JAMB CUTTER Work Phone: [facility] Comment on above: Abnormal urination ( Primary Dx); Irregular periods; Acute vaginitis Start: 02-20-2022 End: 02-20-2022 Subsequent hospital visit by physician [facility] Work Phone: Radiology Comment on above: Acute right ankle pa in [M25.571] Start: 02-20-2022 End: 02-20-2022 Patient encounter procedure Kera Joseph APRN.JAMB CUTTER Work Phone: [facility] Comment on above: Foot pain, right (Pr imary Dx); Acute right ankle pain Start: 01-30-2022 Refill Megha Nixon ed, MD Work Phone: [facility] [place] Comment on above: Refill Request Start: 01-26-2022 End: 01-26-2022 Emergency department [facility] Start: 01-04-2022 Refill Antonio cheatham MD Work Phone: [facility] [place] Comment on above: Refill Request Start: 12-07-2021 Refill Hemalatha Dejesus MD Work Phone: [facility] [place] Comment on above: Refill Request Start: 11-06-2021 Refill Antonio cheatham MD Work Phone: [facility] [place] Comment on above: Refill Request Start: 10-11-2021 Telephone encounter Antonio Smalls MD Work Phone: [facility] [place] Comment on above: Results Start: 10-09-2021 Refill Antonio cheatham MD Work Phone: [facility] [place] Comment on above: Refill Request Start: 07-12-2021 End: 07-12-2021 Subsequent hospital visit by physician [facility] Work Phone: Radiology Comment on above: Injury of toe on rig ht foot, initial encounter [F39.921A] Start: 04-19-2021 End: 04-19-2021 ambulatory NATO VALDEZ [facility] Start: 04-18-2021 End: 04-19-2021 ambulatory GERRI [facility] Start: 04-10-2021 ambulatory [facility] NICOLLE [facility] Start: 04-10-2021 End: 04-10-2021 Emergency department patient [facility] Start: 04-04-2021 ambulatory GERRI BERNAL [facility] Start: 04-29-2018 [facility] Start: 04-29-2017 End: 04-29-2017 Ambulatory [facility] Facility:[facility] Procedures Date Procedure Procedure Detail Performing Clinician [...] 10-11-2024 UA DIP,URINE HCG (POC) Pat Agata BELL MAKER.JAMB CUTTER Work Phone: Start: 10-06-2024 CT of head [...] et rgnt auto w/o microscopy Sher Hollingsworth BELL MAKER.JAMB CUTTER Work Phone: Start: 01-23-2024 Us pelvic nonobstetr ic real-time image complete Pat Agata BELL MAKER.JAMB CUTTER Work Phone: Start: 12-22-2023 Radex foot complete minimum 3 views Kera Joseph BELL MAKER.JAMB CUTTER Work Phone: Start: 12-17-2023 Radex hand minimum 3 views Terrence Liz BELL MAKER.JAMB CUTTER Work Phone: Start: 10-09-2023 STREP A MOLECULAR (POC) Aria BURGESS Work Phone: Start: 08-18-2023 COVID & INFLUENZA A/ B & RSV NAAT, ROUTINE [place] Barber BELL MAKER.JAMB CUTTER Work Phone: Start: 08-11-2023 BACTERIAL VAGINOSIS NAAT [...] Phone: Start: 04-17-2023 Us transvaginal Leah Nunez BELL MAKER.CNM Work Phone: Start: 12-24-2022 STREP A MOLECULAR (POC) Kera Joseph BELL MAKER.JAMB CUTTER Work Phone: Start: 11-05-2022 Brncdilat rspse spmt ry pre&post-brncdilat admn 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 [employer] Work Phone: Start: 09-05-2022 STREP A MOLECULAR [...] et rgnt auto w/o microscopy Keeley Severino BELL MAKER.JAMB CUTTER Work Phone: Start: 02-20-2022 Radex ankle complete minimum 3 views Kera Joseph BELL MAKER.JAMB CUTTER Work Phone: Start: 01-26-2022 Radiography of ankle [...] lt abnormal Abnormal laboratory test Annia Hogan BELL MAKER.JAMB CUTTER Work Phone: Laboratory test resu lt abnormal Abnormal laboratory test 1 Work Phone: Plan of Treatment Date Care Activity Detail Author Start: 08-09-2034 Urine microalbumin profile DTaP,Tdap,Td Vaccine (8 - Td or Tdap) [facility] Start: 02-09-2026 Annual PCP Team Chronic Disease Visit Annual PCP Team Chronic Disease Visit [facility] Start: 01-03-2026 Annual PCP Team Chronic Disease Visit Annual PCP Team Chronic Disease Visit [facility] Start: 12-06-2025 Annual PCP Team Chronic Disease Visit Annual PCP Team Chronic Disease Visit [facility] Start: 11-08-2025 Annual PCP Team Chronic Disease Visit Annual PCP Team Chronic Disease Visit [facility] Start: 11-02-2025 Annual PCP Team Chronic Disease Visit Annual PCP Team Chronic Disease Visit [facility] Start: 11-02-2025 End: 11-02-2025 Patient encounter procedure 11/02/2025 1:40 PM EDT Office Visit [facility] [place] [address] [place] [address] Kate Silva MD [address] [place] [address] follow up 3 months [facility] [place] Comment on above: follow up 3 months Start: 10-27-2025 Glaucoma screening Dilated Retinal Exam [facility] Start: 10-26-2025 Annual PCP Team Chronic Disease Visit Annual PCP Team Chronic Disease Visit [facility] Start: 10-01-2025 Annual PCP Team Chronic Disease Visit Annual PCP Team Chronic Disease Visit [facility] Start: 08-09-2025 Annual PCP Team Chronic Disease Visit Annual PCP Team Chronic Disease Visit [facility] Start: 08-05-2025 End: 08-05-2025 Patient encounter procedure 08/05/2025 3:20 PM EST Office Visit [facility] [place] [address] [place] [address] Kate Silva MD [address] [place] [address] follow up 3 months [facility] [place] Comment on above: follow up 3 months Start: 05-04-2025 End: 05-04-2025 Patient encounter procedure 05/04/2025 2:00 PM EST Office Visit [facility] [place] [address] [place] [address] Kate Silva MD [address] [place] [address] 3 month f/u [facility] [place] Comment on above: 3 month f/u Start: 04-30-2025 Annual PCP Team Chronic Disease Visit Annual PCP Team Chronic Disease Visit [facility] Start: 04-30-2025 Covid-19 Vaccine ( season) Covid-19 Vaccine ( season) [facility] Comment on above: Postponed from 02/29/2024 (Declined at t his time) Start: 04-30-2025 Diabetic foot examination Diabetic Foot Exam [facility] Start: 04-30-2025 Hepatitis B screening Urine Albumin:Creatinine Ratio [facility] Start: 04-30-2025 Hepatitis B surface antibody level LDL Cholesterol [facility] Start: 04-25-2025 End: 04-25-2025 Patient encounter procedure 04/25/2025 8:40 AM EDT Office Visit Cardiology [address] [place] [id number] Santi Mcallister MD [address] [facility] [address] [place], [place] [id number] 6 month follow up Cardiology Comment on above: 6 month follow up Start: 03-19-2025 Annual PCP Team Chronic Disease Visit Annual PCP Team Chronic Disease Visit [facility] Start: 02-28-2025 Influenza vaccination Influenza Vaccine (#1) [facility] Start: 02-09-2025 End: 02-09-2025 Patient encounter procedure 02/09/2025 4:00 PM EDT Office Visit [facility] [place] [address] [place] [address] Kate Silva MD [address] [place] [address] 3 month f/u [facility] [place] Comment on above: 3 month f/u Start: 02-06-2025 Hemoglobin A1c [facility] Start: 01-26-2025 Annual PCP Team Chronic Disease Visit Annual PCP Team Chronic Disease Visit [facility] Start: 01-14-2025 End: 01-14-2025 Patient encounter procedure 01/14/2025 2:40 PM EDT Office Visit Cardiology [address] [place] [id number] Palpitations [R00.2] Cardiology Comment on above: Palpitations [R00.2] Start: 01-03-2025 End: 01-03-2025 Patient encounter procedure 01/03/2025 1:20 PM EDT Office Visit [facility] [place] [address] [place] [address] Sher Hollingsworth APRN.JAMB CUTTER [address] [place] [address] 4 week follow up [facility] [place] Comment on above: 4 week follow up Start: 12-06-2024 End: 12-06-2024 Patient encounter procedure 12/06/2024 2:00 PM EDT Office Visit [facility] [place] [address] [place] [address] Sher Hollingsworth APRN.JAMB CUTTER [address] [place] [address] 4 week follow up [facility] [place] Comment on above: 4 week follow up Start: 12-02-2024 [facility] Start: 12-02-2024 External ecg scanning analysis report XTRNL ECG REC<48 HR SCAN A/R [facility] Start: 12-02-2024 Xtrnl ecg & 48 hr recording XTRNL ECG REC<48 HRS REC [facility] Start: 11-16-2024 End: 11-16-2024 Patient encounter procedure 11/16/2024 4:20 PM EDT Office Visit Neurology [address] [place] [address] Hailey Jett MD [address] [place] [address] FOLLOW UP / SLEEP Neurology Comment on above: FOLLOW UP / SLEEP Start: 11-08-2024 End: 11-08-2024 Patient encounter procedure [facility] [place] Comment on above: 3 month f/u Start: 10-29-2024 [facility] Start: 10-28-2024 Hemoglobin A1c measurement HbA1C [facility] gautam Start: 10-25-2024 [facility] Start: 10-22-2024 End: 10-22-2024 ambulatory 10/22/2024 8:30 AM EDT [facility] Neurology [address] [address] Estrellita Kumar APRN.JAMB CUTTER [address] [address] Numbness and tingling [R20.0, R20.2] Neurology Comment on above: Numbness and tingling [R20.0, R20.2] Start: 10-20-2024 End: 10-20-2024 Patient encounter procedure 10/20/2024 10:00 AM EDT Office Visit [facility] [place] [address] [place] [address] Kate Silva MD [address] [place] [address] [facility] fatigue, lightheaded [facility] [place] Comment on above: [facility] Er fatigue, lighthea ded Start: 10-11-2024 End: 10-11-2024 ambulatory 10/11/2024 3:40 PM EDT Visit (SP) Office Hematology/Oncology [address] [place] [address] Gopal Yanez MD [address] [place] [address] OV* Hematology/Oncology Comment on above: OV* Start: 10-11-2024 End: 01-10-2025 CBC W Auto Differential panel - Blood COMPLETE BLOOD COUNT AND DIFFERENTIAL Lab Routine Leukocytosis, unspecified type Expected: 10/11/2024, Expires: 01/10/2025 [facility] Work Phone: Comment on above: Expected: 10/11/2024, Expires: Start: 10-11-2024 End: 01-10-2025 Erythrocyte sedimentation rate SEDIMENTATION RATE, WESTERGREN Lab Routine Leukocytosis, unspecified type Expected: 10/11/2024, Expires: 01/10/2025 [facility] Comment on above: Expected: 10/11/2024, Expires: Start: 10-11-2024 End: 10-11-2024 Patient encounter procedure 10/11/2024 9:30 AM EDT Office Visit OB/Gynecology [address] [place] [address] Pat Ferrer APRN.JAMB CUTTER [address] [place] [address] Vulvar irritation [N90.89] OB/Gynecology Comment on above: Vulvar irritation [N90.89] Start: 10-06-2024 [facility] Start: 10-01-2024 End: 12-31-2024 CBC W Auto Differential panel - Blood COMPLETE BLOOD COUNT AND DIFFERENTIAL Lab Routine Leukocytosis, unspecified type Thrombocytosis Other fatigue Expected: 10/01/2024, Expires: 12/31/2024 [facility] Work Phone: Comment on above: Expected: 10/01/2024, Expires: Start: 10-01-2024 End: 12-31-2024 Thyrotropin [Units/volume] in Serum or Plasma THYROID STIMULATING HORMONE Lab Routine Other fatigue Expected: 10/01/2024, Expires: 12/31/2024 [facility] Comment on above: Expected: 10/01/2024, Expires: Start: 10-01-2024 End: 12-31-2024 Thyroxine (T4) free [Mass/volume] in Serum or Plasma T4 FREE/FREE THYROXINE Lab Routine Other fatigue Expected: 10/01/2024, Expires: 12/31/2024 [facility] Comment on above: Expected: 10/01/2024, Expires: Start: 10-01-2024 End: 12-31-2024 Triiodothyronine (T3) Free [Mass/volume] in Serum or Plasma T3, FREE Lab Routine Other fatigue Expected: 10/01/2024, Expires: 12/31/2024 [facility] Comment on above: Expected: 10/01/2024, Expires: Start: 09-29-2024 [facility] Start: 09-14-2024 End: 09-14-2024 Patient encounter procedure 09/14/2024 2:00 PM EDT Office Visit [facility] [place] [address] [place] [address] Sher Hollingsworth APRN.JAMB CUTTER [address] [place], [place] [address] numbness and weakness [facility] [place] Comment on above: numbness and weakness Start: 08-30-2024 End: 08-30-2024 Patient encounter procedure Cardiology Comment on above: heart problems/ check up Start: 08-09-2024 End: 11-08-2024 C reactive protein [Mass/volume] in Serum or Plasma [facility] Comment on above: Expected: 08/09/2024, Expires: Start: 08-09-2024 End: 11-08-2024 Comprehensive metabolic 2000 panel - Serum or Plasma [facility] Work Phone: Comment on above: Expected: 08/09/2024, Expires: Start: 08-09-2024 End: 11-08-2024 Creatine kinase [Enzymatic activity/volume] in Serum or Plasma [facility] Comment on above: Expected: 08/09/2024, Expires: Start: 08-09-2024 End: 11-08-2024 Hemoglobin A1c in Blood [facility] Comment on above: Expected: 08/09/2024, Expires: Start: 08-09-2024 End: 08-09-2024 Patient encounter procedure 08/09/2024 10:20 AM EST Office Visit [facility] [place] [address] [place] [address] Kate Silva MD [address] [place] [address] 3 month follow up [facility] [place] Comment on above: 3 month follow up Start: 07-25-2024 Hemoglobin A1c measurement [facility]C [facility] Start: 06-06-2024 Covid-19 Vaccine (#1) Covid-19 Vaccine (#1) [facility] Comment on above: Postponed from 07/02/1999 (Declined at t his time) Start: 06-06-2024 Covid-19 Vaccine () Covid-19 Vaccine () [facility] Comment on above: Postponed from 02/28/2023 (Declined at t his time) Start: 04-30-2024 End: 07-30-2024 Microalbumin/Creatinine [Mass Ratio] in Urine [facility] Comment on above: Expected: 04/30/2024, Expires: Start: 04-30-2024 End: 04-30-2024 Patient encounter procedure 04/30/2024 1:00 PM EDT Office Visit [facility] [place] [address] [place] [address] Sher Hollingsworth APRN.[facility] [address] [place], [place] [id number] 6 week follow up [facility] [place] Comment on above: 6 week follow up Start: 04-16-2024 End: 07-16-2024 CBC W Auto Differential panel - Blood COMPLETE BLOOD COUNT AND DIFFERENTIAL Lab Routine Encounter for therapeutic drug monitoring Expected: 04/16/2024, Expires: 07/16/2024 [facility] Work Phone: Comment on above: Expected: 04/16/2024, Expires: Start: 04-16-2024 End: 07-16-2024 Comprehensive metabolic 2000 panel - Serum or Plasma COMPREHENSIVE METABOLIC PANEL Lab Routine Fatty liver Encounter for therapeutic drug monitoring Expected: 04/16/2024, Expires: 07/16/2024 [facility] Comment on above: Expected: 04/16/2024, Expires: Start: 04-16-2024 End: 07-16-2024 Hemoglobin A1c in Blood HEMOGLOBIN A1C Lab Routine Type 2 diabetes mellitus without complication, without long-term current use of insulin (HCC) Expected: 04/16/2024, Expires: 07/16/2024 [facility] Comment on above: Expected: 04/16/2024, Expires: Start: 04-16-2024 End: 07-16-2024 LIPID PANEL, NONFASTING LIPID PANEL, NONFASTING Lab Routine Type 2 diabetes mellitus without complication, without long-term current use of insulin (HCC) Screening for lipid disorders Expected: 04/16/2024, Expires: 07/16/2024 [facility] Comment on above: Expected: 04/16/2024, Expires: Start: 04-16-2024 End: 07-16-2024 Microalbumin/Creatinine [Mass Ratio] in Urine ALBUMIN/CREATININE RATIO, URINE Lab Routine Type 2 diabetes mellitus without complication, without long-term current use of insulin (HCC) Expected: 04/16/2024, Expires: 07/16/2024 [facility] Comment on above: Expected: 04/16/2024, Expires: Start: 03-19-2024 End: 03-19-2024 Patient encounter procedure 03/19/2024 10:00 AM EDT Office Visit [facility] [place] [address] [place] [address] Sher Hollingsworth APRN.JAMB CUTTER [address] [place] [address] 3 month follow up [facility] [place] Comment on above: 3 month follow up Start: 03-04-2024 End: 03-04-2024 Patient encounter procedure 03/04/2024 12:45 PM EDT Office Visit OB/Gynecology [address] [place] [address] Pat Ferrer APRN.JAMB CUTTER [address] [place] [address] Diagnosed recently with DM-Hx recurrent yeast infections OB/Gynecology Comment on above: Diagnosed recently with DM-Hx recurrent yeast infections Start: 02-29-2024 Covid-19 Vaccine () Covid-19 Vaccine () [facility] Start: 02-29-2024 Covid-19 Vaccine ( season) Covid-19 Vaccine () [facility] Start: 02-29-2024 Influenza vaccination Influenza Vaccine (#1) [facility] Start: 02-10-2024 End: 02-10-2024 Patient encounter procedure 02/10/2024 3:00 PM EDT Office Visit OB/Gynecology [address] [place] [address] Pat Ferrer APRN.JAMB CUTTER [address] [place] [address] yeast infection OB/Gynecology Comment on above: yeast infection Start: 02-02-2024 End: 02-02-2024 Patient encounter procedure 02/02/2024 2:15 PM EDT Office Visit Orthopaedics [address] [place] [address] Gerardo Holder MD [address] [place] [address] Right hand pain [M79.641] Orthopaedics Comment on above: Right hand pain [M79.641] Start: 01-27-2024 End: 01-27-2024 Patient encounter procedure 01/27/2024 2:00 PM EDT Office Visit [facility] [place] [address] [place] [address] Sher Hollingsworth APRN.JAMB CUTTER [address] [place] [address] diabetes f/u [facility] [place] Comment on above: diabetes f/u Start: 01-22-2024 End: 04-22-2024 TESTOSTERONE, FREE AND TOTAL TESTOSTERONE, FREE AND TOTAL Lab Routine Amenorrhea Expected: 01/22/2024, Expires: 04/22/2024 [facility] Work Phone: Comment on above: Expected: 01/22/2024, Expires: Start: 01-13-2024 End: 01-13-2024 ambulatory 01/13/2024 11:00 AM EDT Results Only [facility] [address] [place] [address] [facility] Comment on above: lab Start: 01-11-2024 CHLAMYDIA SCREENING (18-24) CHLAMYDIA SCREENING (18-24) [facility] Start: 01-11-2024 GC (GONORRHEA) SCREENING (18-24) GC (GONORRHEA) SCREENING (18-24) [facility] Start: 12-15-2023 End: 12-15-2023 Patient encounter procedure 12/15/2023 1:00 PM EDT Office Visit [facility] [place] [address] [place], [place] [id number] Sher Hollingsworth APRN.JAMB CUTTER [address] [place], [place] [address] 3 month follow up [facility] [place] Comment on above: 3 month follow up Start: 12-12-2023 End: 12-12-2023 Patient encounter procedure 12/12/2023 12:45 PM EDT Office Visit OB/Gynecology [address] [place], [place] [id number] Pat Ferrer APRN.JAMB CUTTER [address] [place] [address] uti OB/Gynecology Comment on above: uti Start: 12-06-2023 PAP TESTING PAP TESTING [facility] Start: 12-06-2023 Screening for malignant neoplasm of cervix [facility] Start: 11-21-2023 End: 11-21-2023 Admission to same day surgery center 11/21/2023 10:00 AM EDT - 11/21/2023 11:00 AM EDT Surgery [facility] [address] [place] [address] [place], [address] [id number] PERCUTANEOUS NEEDLE BIOPSY OF LIVER [facility] Comment on above: PERCUTANEOUS NEEDLE BIOPSY OF LIVER Start: 11-21-2023 End: 11-21-2023 Biopsy liver needle percutaneous PERCUTANEOUS NEEDLE BIOPSY OF LIVER NAFLD (nonalcoholic fatty liver disease) Autoantibody titer positive 11/21/2023 10:00 AM EDT [facility] Start: 11-21-2023 Subsequent hospital visit by physician 11/21/2023 10:00 AM EDT Hospital Encounter [facility] [address] [place] [address] [place], [address] [facility], [address] [address] NAFLD (nonalcoholic fatty liver disease) [K76.0] [facility] INTERVENT[facility]AL RADIOLOGY Comment on above: NAFLD (nonalcoholic fatty liver disease) [K76.0] Start: 11-20-2023 CHLAMYDIA SCREENING () CHLAMYDIA SCREENING () [facility] Start: 11-20-2023 GC (GONORRHEA) SCREENING () GC (GONORRHEA) SCREENING () [facility] Start: 11-11-2023 End: 02-10-2024 CBC panel - Blood by Automated count COMPLETE BLOOD COUNT Lab Routine NAFLD (nonalcoholic fatty liver disease) Expected: 11/11/2023, Expires: 02/10/2024 [facility] Work Phone: Comment on above: Expected: 11/11/2023, Expires: Start: 11-11-2023 End: 02-10-2024 PT panel - Platelet poor plasma by Coagulation assay PROTHROMBIN TIME Lab Routine NAFLD (nonalcoholic fatty liver disease) Expected: 11/11/2023, Expires: 02/10/2024 [facility] Comment on above: Expected: 11/11/2023, Expires: 4 Start: 10-22-2023 End: 01-21-2024 Comprehensive metabolic 2000 panel - Serum or Plasma COMPREHENSIVE METABOLIC PANEL Lab Routine NAFLD (nonalcoholic fatty liver disease) Expected: 10/22/2023, Expires: 01/21/2024 [facility] Work Phone: Comment on above: Expected: 10/22/2023, Expires: 4 Start: 10-22-2023 End: 01-21-2024 Hepatitis B virus surface Ab [Presence] in Serum HEPATITIS B SURFACE ANTIBODY Lab Routine NAFLD (nonalcoholic fatty liver disease) Expected: 10/22/2023, Expires: 01/21/2024 [facility] Comment on above: Expected: 10/22/2023, Expires: 4 Start: 10-22-2023 End: 01-21-2024 LIVER FIBROSIS AND ACTIVITY LIVER FIBROSIS AND ACTIVITY Lab Routine NAFLD (nonalcoholic fatty liver disease) Expected: 10/22/2023, Expires: 01/21/2024 [facility] Comment on above: Expected: 10/22/2023, Expires: 4 Start: 10-22-2023 End: 01-21-2024 Smooth muscle Ab [Presence] in Serum SMOOTH MUSCLE AB SCR Lab Routine NAFLD (nonalcoholic fatty liver disease) Expected: 10/22/2023, Expires: 01/21/2024 [facility] Comment on above: Expected: 10/22/2023, Expires: 4 Start: 07-17-2023 CHLAMYDIA SCREENING (18) CHLAMYDIA SCREENING (18) [facility] Start: 07-17-2023 GC (GONORRHEA) SCREENING () GC (GONORRHEA) SCREENING () [facility] Start: 06-11-2023 Hepatitis B surface antibody level LDL Cholesterol [facility] Start: 04-22-2023 End: 07-22-2023 Hepatic function 2000 panel - Serum or Plasma [facility] Work Phone: Comment on above: Expected: 04/22/2023, Expires: 4 Start: 04-09-2023 End: 06-09-2023 Choriogonadotropin.beta subunit [Units/volume] in Serum or Plasma [facility] Work Phone: Comment on above: Expected: 04/09/2023, Expires: 3 Start: 04-09-2023 End: 06-09-2023 Estradiol (E2) [Mass/volume] in Serum or Plasma [facility] Work Phone: Comment on above: Expected: 04/09/2023, Expires: 3 Start: 04-09-2023 End: 06-09-2023 Follitropin [Units/volume] in Serum or Plasma [facility] Work Phone: Comment on above: Expected: 04/09/2023, Expires: 3 Start: 04-09-2023 End: 06-09-2023 Prolactin [Mass/volume] in Serum or Plasma [facility] Work Phone: Comment on above: Expected: 04/09/2023, Expires: 3 Start: 04-09-2023 End: 06-09-2023 Thyrotropin [Units/volume] in Serum or Plasma [facility] Work Phone: Comment on above: Expected: 04/09/2023, Expires: 3 Start: 02-28-2023 Influenza vaccination [facility] Start: 02-27-2023 CHLAMYDIA SCREENING (18-24) CHLAMYDIA SCREENING (18-24) [facility] Start: 02-27-2023 GC (GONORRHEA) SCREENING (18-24) GC (GONORRHEA) SCREENING (18-24) [facility] Start: 11-04-2022 End: 11-18-2022 Influenza virus A and B RNA and SARS-CoV-2 (COVID-19) N gene panel - Respiratory specimen by EDMOND with probe detection [facility] Work Phone: Comment on above: Expected: 11/04/2022, Expires: 3 Start: 10-30-2022 End: 10-30-2023 Cta hrt cornry art/bypass grfts contrst 3d post CTA CORONARY W IVCON Radiology Routine Precordial pain Expected: 10/30/2022, Expires: 10/30/2023 [facility] Work Phone: Comment on above: Expected: 10/30/2022, Expires: 4 Start: 10-28-2022 End: 12-28-2022 HIV 1+2 Ab [Presence] in Serum or Plasma by Immunoassay HIV 1 2 COMBO(AG/AB),WITH REFLEX TO DIFFERENTIATION Lab Routine Screening for HIV (human immunodeficiency virus) Expected: 10/28/2022, Expires: 12/28/2022 [facility] Work Phone: Comment on above: Expected: 10/28/2022, Expires: 3 Start: 10-07-2022 End: 10-01-2023 Echocardiography ECHO Cardiology Routine Precordial pain Expected: 10/07/2022, Expires: 10/01/2023 [facility] Work Phone: Comment on above: Expected: 10/07/2022, Expires: 4 Start: 10-03-2022 End: 12-03-2022 Alanine aminotransferase [Enzymatic activity/volume] in Serum or Plasma ALT/SGPT Lab Routine Abnormal laboratory test Expected: 10/03/2022 (Approximate), Expires: 12/03/2022 [facility] Work Phone: Comment on above: Expected: 10/03/2022 (Approximate), Expi res: 12/03/2022 Start: 10-03-2022 End: 12-03-2022 Aspartate aminotransferase [Enzymatic activity/volume] in Serum or Plasma AST/SGOT BLD Lab Routine Abnormal laboratory test Expected: 10/03/2022 (Approximate), Expires: 12/03/2022 [facility] Work Phone: Comment on above: Expected: 10/03/2022 (Approximate), Expi res: 12/03/2022 Start: 08-22-2022 End: 10-22-2022 FISH FOR BCR/ABL1 [facility] Work Phone: Comment on above: Expected: 08/22/2022, Expires: 3 Start: 08-22-2022 End: 10-22-2022 FLOW CYTOMETRY PERIPHERAL BLOOD LEUK/LYMPH (FCLEUK) [facility] Work Phone: Comment on above: Expected: 08/22/2022, Expires: 3 Start: 08-22-2022 End: 10-22-2022 MYELOPROLIFERATIVE NEOPLASM PANEL BLOOD [facility] Work Phone: Comment on above: Expected: 08/22/2022, Expires: 3 Start: 08-21-2022 CHLAMYDIA SCREENING (18-24) CHLAMYDIA SCREENING (18-24) [facility] Start: 08-21-2022 GC (GONORRHEA) SCREENING (18-24) GC (GONORRHEA) SCREENING (18-24) [facility] Start: 08-07-2022 End: 10-07-2022 25-hydroxyvitamin D3 [Mass/volume] in Serum or Plasma [facility] Work Phone: Comment on above: Expected: 08/07/2022, Expires: 3 Start: 08-07-2022 End: 10-07-2022 CBC W Auto Differential panel - Blood [facility] Work Phone: Comment on above: Expected: 08/07/2022, Expires: 3 Start: 08-07-2022 End: 10-07-2022 Cobalamin (Vitamin B12) [Mass/volume] in Serum or Plasma [facility] Work Phone: Comment on above: Expected: 08/07/2022, Expires: 3 Start: 08-07-2022 End: 10-07-2022 Hepatic function 2000 panel - Serum or Plasma [facility] Work Phone: Comment on above: Expected: 08/07/2022, Expires: 3 Start: 08-07-2022 End: 10-07-2022 Iron and Iron binding capacity panel - Serum or Plasma [facility] Work Phone: Comment on above: Expected: 08/07/2022, Expires: 3 Start: 08-07-2022 End: 10-07-2022 Thyrotropin [Units/volume] in Serum or Plasma [facility] Work Phone: Comment on above: Expected: 08/07/2022, Expires: 3 Start: 06-11-2022 End: 08-11-2022 Alpha 1 antitrypsin [Mass/volume] in Serum or Plasma [id number] BL Lab Routine Fatty liver Elevated LFTs Expected: 06/11/2022, Expires: 08/11/2022 [facility] Work Phone: Comment on above: Expected: 06/11/2022, Expires: 3 Start: 06-11-2022 End: 08-11-2022 Ceruloplasmin [Mass/volume] in Serum or Plasma CERULOPLASMIN BLD Lab Routine Fatty liver Elevated LFTs Expected: 06/11/2022, Expires: 08/11/2022 [facility] Work Phone: Comment on above: Expected: 06/11/2022, Expires: 3 Start: 06-11-2022 End: 08-11-2022 Ferritin [Mass/volume] in Serum or Plasma FERRITIN BLD Lab Routine Fatty liver Elevated LFTs Expected: 06/11/2022, Expires: 08/11/2022 [facility] Work Phone: Comment on above: Expected: 06/11/2022, Expires: 3 Start: 06-11-2022 End: 08-11-2022 Hemoglobin A1c in Blood HGB A1C Lab Routine Fatty liver Elevated LFTs Expected: 06/11/2022, Expires: 08/11/2022 [facility] Work Phone: Comment on above: Expected: 06/11/2022, Expires: 3 Start: 06-11-2022 End: 08-11-2022 HEPATITIS A ANTIBODY, IGG HEPATITIS A ANTIBODY, IGG Lab Routine Fatty liver Elevated LFTs Expected: 06/11/2022, Expires: 08/11/2022 [facility] Work Phone: Comment on above: Expected: 06/11/2022, Expires: 3 Start: 06-11-2022 End: 08-11-2022 Hepatitis B virus core Ab [Presence] in Serum HEP B CORE AB TOTAL Lab Routine Fatty liver Elevated LFTs Expected: 06/11/2022, Expires: 08/11/2022 [facility] Work Phone: Comment on above: Expected: 06/11/2022, Expires: 3 Start: 06-11-2022 End: 08-11-2022 Hepatitis B virus surface Ag [Presence] in Serum HEP B SURF AG SCRN Lab Routine Fatty liver Elevated LFTs Expected: 06/11/2022, Expires: 08/11/2022 [facility] Work Phone: Comment on above: Expected: 06/11/2022, Expires: 3 Start: 06-11-2022 End: 08-11-2022 Hepatitis C virus Ab [Presence] in Serum HEP C AB IA W/CONF SCRN Lab Routine Fatty liver Elevated LFTs Expected: 06/11/2022, Expires: 08/11/2022 [facility] Work Phone: Comment on above: Expected: 06/11/2022, Expires: 3 Start: 06-11-2022 End: 08-11-2022 Lipid 1996 panel - Serum or Plasma LIPID PANEL BASIC Lab Routine Fatty liver Elevated LFTs Expected: 06/11/2022, Expires: 08/11/2022 [facility] Work Phone: Comment on above: Expected: 06/11/2022, Expires: 3 Start: 06-11-2022 End: 08-11-2022 LIVER FIBROSIS AND ACTIVITY LIVER FIBROSIS AND ACTIVITY Lab Routine Fatty liver Elevated LFTs Expected: 06/11/2022, Expires: 08/11/2022 [facility] Work Phone: Comment on above: Expected: 06/11/2022, Expires: 3 Start: 06-11-2022 End: 08-11-2022 Mitochondria Ab [Presence] in Serum by Immunofluorescence MITOCHONDRIAL M2 IGG SERUM Lab Routine Fatty liver Elevated LFTs Expected: 06/11/2022, Expires: 08/11/2022 [facility] Work Phone: Comment on above: Expected: 06/11/2022, Expires: 3 Start: 06-11-2022 End: 08-11-2022 Smooth muscle Ab [Presence] in Serum SMOOTH MUSCLE AB SCR Lab Routine Fatty liver Elevated LFTs Expected: 06/11/2022, Expires: 08/11/2022 [facility] Work Phone: Comment on above: Expected: 06/11/2022, Expires: Start: 04-12-2022 End: 06-12-2022 Alanine aminotransferase [Enzymatic activity/volume] in Serum or Plasma ALT/SGPT Lab Routine Abnormal laboratory test Expected: 04/12/2022 (Approximate), Expires: 06/12/2022 [facility] Work Phone: Comment on above: Expected: 04/12/2022 (Approximate), Expi res: 06/12/2022 Start: 04-12-2022 End: 06-12-2022 Aspartate aminotransferase [Enzymatic activity/volume] in Serum or Plasma AST/SGOT BLD Lab Routine Abnormal laboratory test Expected: 04/12/2022 (Approximate), Expires: 06/12/2022 [facility] Work Phone: Comment on above: Expected: 04/12/2022 (Approximate), Expi res: 06/12/2022 Start: 04-12-2022 End: 06-12-2022 Erythrocyte sedimentation rate SED RATE WESTERGREN Lab Routine Abnormal laboratory test Expected: 04/12/2022 (Approximate), Expires: 06/12/2022 [facility] Work Phone: Comment on above: Expected: 04/12/2022 (Approximate), Expi res: 06/12/2022 Start: 04-11-2022 Plain chest X-ray Chest [place] and [facility] Work Phone: Start: 04-11-2022 XR Chest PA and Lateral [facility] Work Phone: Start: 04-09-2022 Meningococcal B Vaccine: Consider Based On Risk (2 of 2 - Risk Bexsero 2-dose series) Meningococcal B Vaccine: Consider Based On Risk (2 of 2 - Risk Bexsero 2-dose series) [facility] Start: 04-09-2022 MENINGOCOCCAL B: Consider based on risk (2 of 2 - Risk Bexsero 2-dose series) MENINGOCOCCAL B: Consider based on risk (2 of 2 - Risk Bexsero 2-dose series) [facility] Start: 02-28-2022 Influenza vaccination [facility] Start: 03-20-2020 Urine microalbumin profile Chloe [facility]aut[facility] Start: 09-09-2019 Adult depression screening assessment DEPRESSION SCREENING [facility] Start: 2016 HEPATITIS C SCREENING HEPATITIS C SCREENING [facility] Start: 2016 HIV SCREENING HIV SCREENING [facility] Start: 07-04-2016 Glaucoma screening Dilated Retinal Exam [facility] Start: 2012 PEDS TO ADULT TRANSITION ANNUAL ASSESSMENT PEDS TO ADULT TRANSITION ANNUAL ASSESSMENT [facility] Start: 2010 PEDS TO ADULT TRANSITION INITIAL DISCUSSION PEDS TO ADULT TRANSITION INITIAL DISCUSSION [facility] Start: 2008 Diabetic foot examination Diabetic Foot Exam [facility] Start: 2008 Hepatitis B screening Urine Albumin:Creatinine Ratio [facility] Start: 2008 MENINGOCOCCAL B: Consider based on risk (1 of 2 - Risk Bexsero 2-dose series) MENINGOCOCCAL B: Consider based on risk (1 of 2 - Risk Bexsero 2-dose series) [facility] Start: 2004 PNEUMOCOCCAL (1 - PCV) PNEUMOCOCCAL (1 - PCV) [facility] Start: 2004 Pneumococcal vaccination Pneumococcal Vaccine (1 of 2 - PCV) [facility] Start: 12-31-2003 COVID-19 VACCINE (#1) COVID-19 VACCINE (#1) [facility] Start: 12-31-2003 COVID-19 VACCINE (1) COVID-19 VACCINE (1) [facility] Start: 07-02-1999 COVID-19 VACCINE (#1) COVID-19 VACCINE (#1) [facility] Start: 07-02-1999 HEPATITIS B (4 of 4 - 4-dose series) HEPATITIS B (4 of 4 - 4-dose series) [facility] Bacteria identified in Urine by Culture URINE CULTURE Microbiology Routine Abnormal urination Ordered: 02/27/2022 [facility] Work Phone: Comment on above: Ordered: 02/27/2022 Bacteria identified in Urine by Culture URINE CULTURE Microbiology Routine Dysuria 08/11/2023 11:04 AM EST [facility] Work Phone: Bacteria identified in Urine by Culture URINE CULTURE Microbiology Routine Urinary frequency 04/30/2024 1:48 PM EDT [facility] BACTERIAL VAGINOSIS AMPLIFICATION BACTERIAL VAGINOSIS AMPLIFICATION Lab Routine Acute vaginitis Ordered: 02/27/2022 [facility] Work Phone: Comment on above: Ordered: 02/27/2022 BACTERIAL VAGINOSIS NAAT BACTERI AL VAGINOSIS NAAT Lab Routine Vaginal discharge Ordered: 01/10/2023 [facility] Work Phone: Comment on above: Ordered: 01/10/2023 BACTERIAL VAGINOSIS NAAT BACTERI AL VAGINOSIS NAAT Lab Routine Vaginal odor 05/14/2023 11:51 AM EST [facility] Work Phone: BACTERIAL VAGINOSIS NAAT BACTERI AL VAGINOSIS NAAT Lab Routine Vaginal discharge Vaginal itching 09/11/2023 10:29 AM EDT [facility] Work Phone: BACTERIAL VAGINOSIS NAAT BACTERI AL VAGINOSIS NAAT Lab Routine Vaginal itching 12/12/2023 1:08 PM EDT [facility] BACTERIAL VAGINOSIS NAAT BACTERI AL VAGINOSIS NAAT Lab Routine Vaginal discharge 02/10/2024 3:20 PM EDT [facility] Work Phone: BACTERIAL VAGINOSIS NAAT BACTERI AL VAGINOSIS NAAT Lab Routine Vaginal discharge 05/12/2024 4:21 PM EST [facility] Work Phone: BACTERIAL VAGINOSIS NAAT BACTERI AL VAGINOSIS NAAT Lab Routine Vulvar itching 10/11/2024 10:59 AM EDT [facility] Biopsy liver needle percutaneous IMAGING GUIDED BIOPSY LIVER Radiology Routine Fatty liver Elevated LFTs Ordered: 06/13/2022 [facility] Work Phone: Comment on above: Ordered: 06/13/2022 Biopsy vulva/perineu m 1 lesion spx BIOPSY OF VULVA Procedures Routine Vulvar irritation Ordered: 09/27/2024 [facility] Work Phone: Comment on above: Ordered: 09/27/2024 Calprotectin [Mass/m ass] in Stool CALPROTECTIN,FECAL Lab Routine Diarrhea, unspecified type Ordered: 10/22/2023 [facility] Comment on above: Ordered: 10/22/2023 YEIMY / TRICHOMONA S AMPLIFICATION YEIMY / TRICHOMONAS AMPLIFICATION Microbiology Routine Acute vaginitis Ordered: 02/27/2022 [facility] Work Phone: Comment on above: Ordered: 02/27/2022 YEIMY/TRICHOMONAS NAAT YEIMY /TRICHOMONAS NAAT Microbiology Routine Vaginal discharge Ordered: 01/10/2023 [facility] Work Phone: Comment on above: Ordered: 01/10/2023 YEIMY/TRICHOMONAS NAAT YEIMY /TRICHOMONAS NAAT Lab Routine Vaginal odor 05/14/2023 11:51 AM [facility] Work Phone: YEIMY/TRICHOMONAS NAAT YEIMY /TRICHOMONAS NAAT Lab Routine Vaginal discharge Vaginal itching 09/11/2023 10:29 AM T [facility] Work Phone: YEIMY/TRICHOMONAS NAAT YEIMY /TRICHOMONAS NAAT Lab Routine Vaginal itching 12/12/2023 1:08 PM T [facility] Work Phone: YEIMY/TRICHOMONAS NAAT YEIMY /TRICHOMONAS NAAT Lab Routine Vaginal discharge 02/10/2024 3:20 PM [facility] YEIMY/TRICHOMONAS NAAT YEIMY /TRICHOMONAS NAAT Lab Routine Vaginal discharge 05/12/2024 4:21 PM [facility] YEIMY/TRICHOMONAS NAAT YEIMY /TRICHOMONAS NAAT Lab Routine Vulvar itching 10/11/2024 10:59 AM [facility] End: 01-13-2024 CBC W Auto Differential panel - Blood CBC + DIFF Lab Routine Leukocytosis, unspecified type Thrombocytosis Every 6 months for 2 Occurrences starting 01/13/2023 until 01/13/2024 [facility] Work Phone: Comment on above: Every 6 months for 2 Occurrences startin g 01/13/2023 until 01/13/2024 Chlamydia trachomatis+Neisseria gonorrhoeae DNA [Presence] in Unspecified specimen by EDMOND with probe detection GC/CHLAMYDIA DNA DET Lab Routine Acute vaginitis Ordered: 02/27/2022 [facility] Work Phone: Comment on above: Ordered: 02/27/2022 Chlamydia trachomatis+Neisseria gonorrhoeae DNA [Presence] in Unspecified specimen by EDMOND with probe detection GONORRHEA/CHLAMYDIA NAAT Lab Routine Vaginal discharge Ordered: 01/10/2023 [facility] Work Phone: Comment on above: Ordered: 01/10/2023 Chlamydia trachomatis+Neisseria gonorrhoeae DNA [Presence] in Unspecified specimen by EDMOND with probe detection GONORRHEA/CHLAMYDIA NAAT Lab Routine Vaginal odor 05/14/2023 11:51 AM [facility] Work Phone: Chlamydia trachomatis+Neisseria gonorrhoeae DNA [Presence] in Unspecified specimen by EDMOND with probe detection GONORRHEA/CHLAMYDIA NAAT Lab Routine Vaginal itching Vaginal odor 08/11/2023 11:04 AM [facility] Work Phone: Clostridioides diffi cile toxin genes [Presence] in Stool by EDMOND with probe detection C. DIFFICILE PCR Lab Routine Diarrhea, unspecified type Ordered: 10/22/2023 [facility] Comment on above: Ordered: 10/22/2023 End: 01-13-2024 Cobalamin (Vitamin B12) [Mass/volume] in Serum or Plasma VITAMIN B12 BLOOD Lab Routine Leukocytosis, unspecified type Thrombocytosis Every 6 months for 2 Occurrences starting 01/13/2023 until 01/13/2024 [facility] Work Phone: Comment on above: Every 6 months for 2 Occurrences startin g 01/13/2023 until 01/13/2024 DDI VIBRATION CONTRO LLED TRANSIENT ELASTOGRAPHY (VCTE) DDI VIBRATION CONTROLLED TRANSIENT ELASTOGRAPHY (VCTE) Procedures Routine Abnormal laboratory test Fatty liver Ordered: 05/07/2022 [facility] Work Phone: Comment on above: Ordered: 05/07/2022 ECG COMPLETE ECG COMPLETE ECG 08/30/2024 1:24 PM [facility] End: 01-03-2026 Echocardiography ECHO Cardiology Routine Palpitations 1 Occurrences starting 01/03/2025 until 01/03/2026 [facility] Work Phone: Comment on above: 1 Occurrences starting 01/03/2025 until 01/03/2026 End: 01-13-2024 Erythrocyte sedimentation rate SED RATE WESTERGREN Lab Routine Leukocytosis, unspecified type Thrombocytosis Every 6 months for 2 Occurrences starting 01/13/2023 until 01/13/2024 [facility] Work Phone: Comment on above: Every 6 months for 2 Occurrences startin g 01/13/2023 until 01/13/2024 End: 01-13-2024 Ferritin [Mass/volume] in Serum or Plasma FERRITIN BLD Lab Routine Leukocytosis, unspecified type Thrombocytosis Every 6 months for 2 Occurrences starting 01/13/2023 until 01/13/2024 [facility] Work Phone: Comment on above: Every 6 months for 2 Occurrences startin g 01/13/2023 until 01/13/2024 Gastrointestinal pat hogens panel - Stool by EDMOND with probe detection EXPANDED STOOL GASTROINTESTINAL PANEL BY PCR Lab Routine Diarrhea, unspecified type Ordered: 10/22/2023 [facility] Comment on above: Ordered: 10/22/2023 Helicobacter pylori Ag [Presence] in Stool by Immunoassay HELICOBACTER PYLORI ANTIGEN BY EIA, STOOL Microbiology Routine Diarrhea, unspecified type Ordered: 10/22/2023 [facility] Comment on above: Ordered: 10/22/2023 End: 06-06-2023 Hepatobil syst imag inc gb w/pharma intervenj NM HEPATOBILIARY W EF AND/OR RX Radiology Routine Nausea 1 Occurrences starting 05/07/2022 until 06/06/2023 [facility] Work Phone: Comment on above: 1 Occurrences starting 05/07/2022 until 06/06/2023 End: 01-13-2024 Iron and Iron binding capacity panel - Serum or Plasma IRON + TIBC Lab Routine Leukocytosis, unspecified type Thrombocytosis Every 6 months for 2 Occurrences starting 01/13/2023 until 01/13/2024 [facility] Work Phone: Comment on above: Every 6 months for 2 Occurrences startin g 01/13/2023 until 01/13/2024 MENINGOCOCCAL B VACC INE (BEXSERO) MENINGOCOCCAL B VACCINE (BEXSERO) Immunization/Injection Routine Encounter for immunization 1 Occurrences starting 10/28/2022 [facility] Work Phone: Comment on above: 1 Occurrences starting 10/28/2022 OUTSIDE VENDOR CARDI AC OUTPATIENT EXTENDED RHYTHM RECORDING (WITHOUT TELEMETRY) OUTSIDE VENDOR CARDIAC OUTPATIENT EXTENDED RHYTHM RECORDING (WITHOUT TELEMETRY) Holter Routine Precordial pain Ordered: 09/30/2022 [facility] Work Phone: Comment on above: Ordered: 09/30/2022 PANC ELASTASE, FECAL PANC ELASTA SE, FECAL Lab Routine Diarrhea, unspecified type Ordered: 10/22/2023 [facility] Comment on above: Ordered: 10/22/2023 End: 12-08-2023 PAP TITRATION PSG (CPAP, BIPAP, ASV) PAP TITRATION PSG (CPAP, BIPAP, ASV) Procedures Routine ESTEBAN (obstructive sleep apnea) 1 Occurrences starting 11/08/2022 until 12/08/2023 [facility] Work Phone: Comment on above: 1 Occurrences starting 11/08/2022 until 12/08/2023 Patient Education [facility] Work Phone: Patient referral [facility] Work Phone: [employer]-LookStatNTFAMOCO COVI D-19 BIVALENT VACCINE, AGE 12+ YR PFIZER-BIONTFAMOCO COVID-19 BIVALENT VACCINE, AGE 12+ YR Immunization/Injection Routine Encounter for immunization 1 Occurrences starting 10/28/2022 [facility] Work Phone: Comment on above: 1 Occurrences starting 10/28/2022 End: 09-06-2023 Polysomnogram POLYSOMNOGRAM (PSG) Procedures Routine Malaise and fatigue Snoring Suspected sleep apnea Chronic fatigue 1 Occurrences starting 09/06/2022 until 09/06/2023 [facility] Work Phone: Comment on above: 1 Occurrences starting 09/06/2022 until 09/06/2023 Removal impacted cer umen irrigation/lvg unilat AMBULATORY EAR LAVAGE/IRRIGATION Procedures Routine Impacted cerumen of right ear Ordered: 12/15/2023 [facility] Work Phone: Comment on above: Ordered: 12/15/2023 End: 11-27-2023 SPIROMETRY WITH DILATOR IF OBSTRUCTED SPIROMETRY WITH DILATOR IF OBSTRUCTED PFT Routine SOBOE (shortness of breath on exertion) 1 Occurrences starting 10/28/2022 until 11/27/2023 [facility] Work Phone: Comment on above: 1 Occurrences starting 10/28/2022 until 11/27/2023 SURGICAL PATHOLOGY SURGICAL PATH OLOGY Lab Routine 07/05/2022 11:06 AM EST [facility] Work Phone: Tdap vaccine 7 yrs/> im TDAP VAC CINE, AGE 7+ YR (ADACEL, BOOSTRIX) Immunization/Injection Routine Encounter for immunization 1 Occurrences starting 10/28/2022 [facility] Work Phone: Comment on above: 1 Occurrences starting 10/28/2022 TESTOSTERONE, FREE A ND TOTAL TESTOSTERONE, FREE AND TOTAL Lab Routine Amenorrhea 01/23/2024 12:12 PM EDT [facility] Tissue Pathology bio psy report SURGICAL PATHOLOGY Lab Routine Vulvar itching 10/11/2024 10:59 AM EDT [facility] Work Phone: UA DIP B/O UA DIP B/O Lab R outine Urinary frequency Ordered: 04/30/2024 [facility] Work Phone: Comment on above: Ordered: 04/30/2024 Urine test visual color cmprsn meths HCG QUAL UR B/O Lab Routine Irregular periods Ordered: 02/27/2022 [facility] Work Phone: Comment on above: Ordered: 02/27/2022 End: 05-21-2024 US ABD RIGHT UPPER QUADRANT US ABD RIGHT UPPER QUADRANT Radiology Routine Fatty liver Elevated LFTs 1 Occurrences starting 04/22/2023 until 05/21/2024 [facility] Work Phone: Comment on above: 1 Occurrences starting 04/22/2023 until 05/21/2024 End: 05-18-2023 Us abdominal real time w/image limited US ABD RT UPPER QUADRANT Radiology Routine Abnormal laboratory test Malaise and fatigue Diarrhea, unspecified type Abdominal pain, unspecified abdominal location 1 Occurrences starting 04/18/2022 until 05/18/2023 [facility] Work Phone: Comment on above: 1 Occurrences starting 04/18/2022 until 05/18/2023 End: 05-10-2024 Us transvaginal US FEMALE PELVIS TRANSVAG Radiology Routine Secondary amenorrhea 1 Occurrences starting 04/09/2023 until 05/10/2024 [facility] Work Phone: Comment on above: 1 Occurrences starting 04/09/2023 until 05/10/2024 [facility] Immunizations Immunization Date Immunization Notes Care Provider [facility] 08-09-2024 tetanus toxoid, redu huy diphtheria toxoid, and acellular pertussis vaccine, adsorbed Kate Silva MD Work Phone: [facility] 03-19-2024 influenza, seasonal, injectable Sher Darrick [employer] Work Phone: [facility] 03-19-2024 pneumococcal conjuga te (PCV20) vaccine, 20 valent (PREVNAR 20) Sher Darrick [employer] Work Phone: [facility] 03-19-2024 pneumococcal Conjuga te, unspecified formulation Sher Darrick [employer] Work Phone: [facility] 03-19-2024 influenza virus vacc ine, unspecified formulation Estrellita Kumar [employer] Work Phone: [facility] 06-06-2023 influenza, injectabl e, quadrivalent, contains preservative Kate Silva MD Work Phone: [facility] 06-06-2023 influenza virus vacc ine, unspecified formulation Estrellita Molina PA-C Work Phone: [facility] 10-28-2022 hepatitis B vaccine, adult dosage 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 [employer] Work Phone: [facility] Work Phone: 03-12-2022 influenza, injectabl e, quadrivalent, contains preservative Antonio Smalls MD Work Phone: [facility] 03-12-2022 meningococcal B vacc ine, recombinant, OMV, adjuvanted Antonio Smalls MD Work Phone: [facility] 03-12-2022 influenza virus vacc ine, unspecified formulation Sher Hollingsworth [employer] Work Phone: [facility] [facility] 04-13-2019 influenza, injectabl e, quadrivalent, preservative free Antonio Smalls MD Work Phone: [facility] 03-25-2018 influenza, injectabl e, quadrivalent, contains preservative Antonio Smalls MD Work Phone: [facility] Work Phone: 09-16-2017 influenza, injectabl e, quadrivalent, contains preservative Antonio Smalls MD Work Phone: [facility] Work Phone: 07-02-2016 influenza, injectabl e, quadrivalent, preservative free Antonio Smalls MD Work Phone: [facility] Work Phone: 01-23-2016 poliovirus vaccine, inactivated Antonio Smalls MD Work Phone: [facility] 05-04-2015 influenza, injectabl e, quadrivalent, contains preservative Antonio Smalls MD Work Phone: [facility] Work Phone: 05-04-2015 meningococcal polysaccharide (groups A, C, Y and W-135) diphtheria toxoid conjugate vaccine (MCV4P) Antonio Smalls MD Work Phone: [facility] Work Phone: 04-08-2014 influenza, live, intranasal, quadrivalent Antonio Smalls MD Work Phone: [facility] Work Phone: 01-14-2014 human papilloma viru s vaccine, quadrivalent Antonio Smalls MD Work Phone: [facility] 09-24-2013 hepatitis A vaccine, pediatric/adolescent dosage, 2 dose schedule Antonio Smalls MD Work Phone: [facility] 09-24-2013 human papilloma viru s vaccine, quadrivalent Antonio Smalls MD Work Phone: [facility] 02-11-2012 hepatitis A vaccine, unspecified formulation Antonio Smalls MD Work Phone: [facility] 02-11-2012 human papilloma viru s vaccine, quadrivalent Antonio Smalls MD Work Phone: [facility] 02-11-2012 varicella virus vaccine Tom Smalls MD Work Phone: [facility] 03-20-2010 Meningococcal, MCV4, unspecified conjugate formulation(groups A, C, Y and W-135) Antonio Smalls MD Work Phone: [facility] 03-20-2010 tetanus toxoid, redu huy diphtheria toxoid, and acellular pertussis vaccine, adsorbed Antonio Smalls MD Work Phone: [facility] 03-14-2004 diphtheria, tetanus toxoids and acellular pertussis vaccine Antonio Smalls MD Work Phone: [facility] Work Phone: 03-14-2004 measles, mumps and rubella virus vaccine Antonio Smalls MD Work Phone: [facility] Work Phone: 04-04-2000 diphtheria, tetanus toxoids and acellular pertussis vaccine Antonio Smalls MD Work Phone: [facility] Work Phone: 04-04-2000 haemophilus influenz ae type b vaccine, HbOC conjugate Antonio Smalls MD Work Phone: [facility] Work Phone: 04-04-2000 hepatitis B vaccine, pediatric or pediatric/adolescent dosage Sher Hollingsworth APRN.JAMB CUTTER Work Phone: [facility] 04-04-2000 measles, mumps and rubella virus vaccine Antonio Smalls MD Work Phone: [facility] Work Phone: 04-04-2000 poliovirus vaccine, inactivated Antonio Smalls MD Work Phone: [facility] Work Phone: 12-14-1999 varicella virus vaccine Tom Smalls MD Work Phone: [facility] Work Phone: 11-13-1999 poliovirus vaccine, inactivated Antonio Smalls MD Work Phone: [facility] Work Phone: 07-02-1999 diphtheria, tetanus toxoids and acellular pertussis vaccine Antonio Smalls MD Work Phone: [facility] Work Phone: 07-02-1999 haemophilus influenz ae type b vaccine, HbOC conjugate Antonio Smalls MD Work Phone: [facility] Work Phone: 07-02-1999 hepatitis B vaccine, pediatric or pediatric/adolescent dosage Sher Hollingsworth APRN.JAMB CUTTER Work Phone: [facility] 07-02-1999 poliovirus vaccine, inactivated Antonio Smalls MD Work Phone: [facility] Work Phone: 04-30-1999 diphtheria, tetanus toxoids and acellular pertussis vaccine Antonio Smalls MD Work Phone: [facility] Work Phone: 04-30-1999 haemophilus influenz ae type b vaccine, HbOC conjugate Antonio Smalls MD Work Phone: [facility] Work Phone: 04-30-1999 hepatitis B vaccine, pediatric or pediatric/adolescent dosage Antonio Smalls MD Work Phone: [facility] Work Phone: 04-30-1999 poliovirus vaccine, inactivated Antonio Smalls MD Work Phone: [facility] Work Phone: 04-30-1999 hepatitis B vaccine, unspecified formulation Kera Joseph BELL MAKER.JAMB CUTTER Work Phone: [facility] 03-06-1999 diphtheria, tetanus toxoids and acellular pertussis vaccine Antonio Smalls MD Work Phone: [facility] Work Phone: 03-06-1999 haemophilus influenz ae type b conjugate and Hepatitis B vaccine Sher Hollingsworth BELL MAKER.JAMB CUTTER Work Phone: [facility] 03-06-1999 haemophilus influenz ae type b vaccine, HbOC conjugate Antonio Smalls MD Work Phone: [facility] Work Phone: 03-06-1999 hepatitis B vaccine, pediatric or pediatric/adolescent dosage Antonio Smalls MD Work Phone: [facility] Work Phone: 03-06-1999 poliovirus vaccine, inactivated Antonio Smalls MD Work Phone: [facility] Work Phone: 01-01-1999 hepatitis B vaccine, pediatric or pediatric/adolescent dosage Antonio Smalls MD Work Phone: [facility] Work Phone: Payers Date Payer Category Payer Self-pay [id number] 2021 Worker's Compensation [id number] 2015 Medicaid [id number] 2015 Medicaid [facility] MEDICAID [id number] 2015-Present [phone] [address] [place] [address] Medicaid [id number] 2015 Medicaid [id number] 2015 Medicaid [id number] 1998 Unknown [id number] 27 Unknown [id number] 62 Unknown [id number] 62 Unknown [id number] 62 Unknown [id number] 62 Unknown [id number] 62 Unknown [id number] 62 Unknown [id number] 62 Unknown [id number] 62 Social History Date Type Detail Facility Start: 12-05-2020 End: 02-20-2022 Tobacco smoking status NHIS Occasional tobacco smoker [facility] Start: 12-05-2020 End: 03-02-2024 Tobacco use and exposure Smokeless tobacco non-user [facility] Start: 07-12-2021 End: 09-11-2021 Alcohol intake Current drinker of alcohol (finding) [facility] Start: 12-05-2020 History SDOH Alcohol Comment occasional [facility] Start: 1998 Sex Assigned At Female C [facility] Start: 09-01-2021 End: 05-30-2022 Exposure to SARS-CoV-2 (event) Not sure [facility] Start: 12-25-2021 End: 01-04-2022 Exposure to SARS-CoV-2 (event) Unable to assess [facility] Start: 01-26-2022 End: 04-11-2022 Tobacco smoking status NHIS Unknown if ever smoked [facility] Work Phone: Start: 11-13-2020 [facility] Start: 05-07-2022 End: 03-02-2024 Tobacco smoking status NHIS Ex-smoker [facility] End: 06-30-2021 History of tobacco use Current smoker [facility] End: 06-30-2021 History of tobacco use Cigarette Smoker [facility] Start: 05-07-2022 End: 02-09-2025 Alcohol intake Ex-drinker (finding) [facility] Start: 08-22-2022 Tobacco Comment Pt smoked 3 ci garettes daily x 2 months, quit 2021 [facility] Start: 11-08-2022 End: 12-24-2022 History of Social function [facility] Start: 11-08-2022 End: 12-24-2022 Tobacco use panel [facility] Start: 05-31-2012 Adult Depression Screening Assessment 0 [facility] Start: 11-28-2020 Gender identity Identifies as female gender (finding) [facility] Start: 11-28-2020 Sexual orientation Choose not to dis close [facility] Start: 08-11-2023 Tobacco Comment Pt smoked 3 ci garettes daily x 2 months, quit t vapes [facility] Do you belong to any clubs or organizations such as hinduism groups, unions, fraternal or athletic groups, or school groups? No [facility] How often to you hav e a drink containing alcohol? Monthly or less [facility] How many standard dr inks containing alcohol do you have on a typical day? 1 or 2 [facility] How often do you hav e 6 or more drinks on 1 occasion? Never [facility] Do you feel stress - tense, restless, nervous, or anxious, or unable to sleep at night because your mind is troubled all the time - these days [OSQ] Only a little [facility] Start: 09-29-2024 End: 12-02-2024 Tobacco smoking status NHIS Current Light tobacco smoker [facility] Start: 09-29-2024 End: 10-25-2024 Sex Female (finding) [facility] Medical Equipment Procedure Code Equipment Code Equipment Origin al Text Equipment Identifier Dates Gas Io Ispan Vsn Sys 125gm Sf6 - [id number] Start: 05-12-2015 Comment on above: Description: SF6 22% IMPLANTED RIGHT EYE Test blood sugar(s) one times daily. Dx: Type 2 DM - Controlled E11.9 Insulin: No [id number] Start: 01-27-2024 Test blood sugar(s) one times daily. Dx: Type 2 DM - Controlled E11.9 Insulin: No [id number] Start: 01-27-2024 Test blood sugar(s) one times daily. Dx: Type 2 DM - Controlled E11.9 Insulin: No [id number] Start: 02-09-2025 Functional Status Date Assessment Result Facility 01-10-2015 Are you deaf, or do you have serious difficulty hearing No 01/10/2015 9:20 AM EDT Zelalem Robles Cma No [facility] 01-10-2015 Are you blind, or do you have serious difficulty seeing, even when wearing glasses No 01/10/2015 9:20 AM EDZelalem Aldridge Cma L No [facility] 01-10-2015 Do you have serious difficulty walking or climbing stairs No 01/10/2015 9:20 AM EDT Zelalem Robles Cma L No [facility] 01-10-2015 Do you have difficul ty dressing or bathing No 01/10/2015 9:20 AM EDT Zelalem Robles Cma L No [facility] 01-10-2015 Because of a physica l, mental, or emotional condition, do you have difficulty doing errands alone such as visiting a physician's office or shopping No 01/10/2015 9:20 AM EDT Zelalem Robles Cma L No [facility] Mental Status Date Assessment Result Facility 12-02-2024 Cognitive function Voice/Name [facility] Work Phone: 10-28-2024 Cognitive function Level Of Cons ciousness Awake;Alert;Appropriate;Fol lows Commands [facility] Work Phone: 10-25-2024 Cognitive function Voice/Name [facility] Work Phone: 10-06-2024 Cognitive function Level Of Cons ciousness Awake;Alert;Appropriate;Fol lows Commands [facility] Work Phone: 09-29-2024 Cognitive function Level Of Cons ciousness Awake;Alert;Appropriate;Fol lows Commands [facility] Work Phone: 04-11-2022 Cognitive function Voice/Name [facility] Work Phone: 01-10-2015 Because of a physica l, mental, or emotional condition, do you have serious difficulty concentrating, remembering, or making decisions Yes 01/10/2015 9:20 AM EDT Margaret JovanniZelalem Yes [facility] Clinical Notes 11-19-2012 to 04-25-2025 Telephone Encounter - Los Chamorro RN - 02/14/2025 2:18 PM EDTTelephone Encounter - Los Chamorro RN - 02/14/2025 2:18 PM EDTPatient Shannon Sykes HUC - 11/23/2024 9:56 AM EDT Note Date & Type Note Facility 04-25-2025 Note HNO ID: [id number] Author: SANTI MCALLISTER MD Service: ? Author Type: Physician Type: Progress Notes Filed: 04/25/2025 09:52 Note Text: Santi Mcallister MD General Cardiology [address] [place] [address] [phone] Chief Complaint Patient presents with: Recheck: 6 [...] CPAP/BIPAP/OTHER Type .CPAPSetti (more content not included)... [facility] 04-02-2025 Note HNO ID: [id number] Author: ARIA RUSSELL PA Service: ? Author Type: Physician Community Resource Consultant Type: Progress Notes Filed: 04/02/2025 13:57 Note [...] once daily. amoxic (more content not included)... [facility] 02-14-2025 Telephone encounter Note [facility] [place] called and he reports they do not have the Pt's blood glucose test strips. He put me through to the pharmacist. I gave him a verbal order for 50 strips with 11 refills. I made sure he had received the order for the Nizoral, Omeprazole, and Zofran ODT. He states they had all of those. Los Chamorro RN [facility] 02-14-2025 Miscellaneous Notes [facility] in [place] called and he reports they do not have the Pt's blood glucose test strips. He put me through to the pharmacist. I gave him a verbal order for 50 strips with 11 refills. I made sure he had received the order for the Nizoral, Omeprazole, and Zofran ODT. He states they had all of those. Los Chamorro RN documented in this encounter [facility] 02-09-2025 Note HNO ID: [id number] Author: KATE SILVA MD Service: ? Author [...] by mouth loy (more content not included)... [facility] 01-12-2025 Telephone encounter Note The following approved [...] KATE SILVA MD Noted last filled 12/06 [facility] 01-12-2025 Miscellaneous Notes The following approved [...] Karen Urias LPN. documented in this encounter [facility] 01-11-2025 Telephone encounter Note Patient has [...] Please advise. Thank you. Karen Urias LPN. [facility] 01-03-2025 Instructions Sher Hollingsworth APRN.MERLIN - 01/03/2025 2:24 PM EDT Clean piercing daily. Apply antibacterial ointment daily. If not improving increase cleaning and ointment to 2-3 times a day. documented in this encounter [facility] 01-03-2025 Note HNO ID: [id number] Author: SHER HOLLINGSWORTH APRN.MERLIN Service: ? Author [...] Flavoring Devices: Pre (more content not included)... [facility] 01-03-2025 History of Present illness Narrative SUBJECTIVE [...] appointment.. JB Winslow documented in this encounter [facility] 12-20-2024 Telephone encounter Note Per Dr. Mcallister he reviewed patients monitor and it is ok. No meds needed. Patient called and notified. Giulia Vo RN [facility] 12-20-[address] Mcallister he reviewed patients monitor and it is ok. No meds needed. Patient called and notified. Giulia Vo RN Heart monitor results from outside facility scanned into [employer] under cardio tab. Janny Feliz MA Patient [...] Giulia Vo RN documented in this encounter [facility] 12-20-2024 Telephone encounter Note Heart monitor results from outside facility scanned into epic under cardio tab. Janny Feliz MA [facility] 12-06-2024 Note HNO ID: [id number] Author: SHER HOLLINGSWORTH APRN.JAMB CUTTER Service: ? Author Type: Nurse Practitioner Type: Progress Notes Filed: 12/06/2024 14:52 Note Text: SUBJECTIVE Katei Forde is a 23 year old female here today for a check up on her medical problems. Chief Complaint Patient presents with: Recheck: was seen in [facility] ER for elevated heart rate HPI Katie Forde is a 23-year-old female with a history of anxiety, presenting with persistent and worsening anxiety. She also reports worsening anxiety, which has been severe enough to limit her ability to stay in public places, such as a recent episode at [facility] where she could only stay for 5 minutes before needing to leave. She describes frequent palpitations, particularly at night, which make it difficult for her to fall asleep. She also notes a new anxious tic, where she holds her breast or moves her leg repetitively without realizing it. She reports feeling anxious during a recent date at [facility], despite feeling safe. She denies recent [...] XR (ADDERALL XR) (more content not included)... [facility] 12-06-2024 History of Present illness Narrative SUBJECTIVE Katie Forde is a 23 year old female here today for a check up on her medical problems. Chief Complaint Patient presents with: Recheck: was seen in [facility] ER for elevated heart rate HPI Katie Forde is a 23-year-old female with a history of anxiety, presenting with persistent and worsening anxiety. She also reports worsening anxiety, which has been severe enough to limit her ability to stay in public places, such as a recent episode at [facility] where she could only stay for 5 minutes before needing to leave. She describes frequent palpitations, particularly at night, which make it difficult for her to fall asleep. She also notes a new anxious tic, where she holds her breast or moves her leg repetitively without realizing it. She reports feeling anxious during a recent date at [employer], despite feeling safe. She denies recent panic [...] medications.. JB Winslow documented in this encounter [facility] 12-02-2024 Telephone encounter Note Patient states [...] Please review and advise. Giulia Vo RN [facility] 11-23-2024 Note HNO ID: [id number] Author: SHANNON MENEZES HUC Service: ? 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 Author Type: Physician Type: Progress Notes Filed: 11/16/2024 17:02 Note Text: [facility] Follow up/ Established patient visit TELEPHONE CALL: Converted from in person as pt had traffic issues and could not be seen in person. No visual communication - not face to face Recording using [employer] software for draft documentation of the visit was discussed with the patient/authorized manufacturers service representative; all questions welcomed and answered. Patient/authorized manufacturers service representative agreed to proceed Assessment/Plan from last visit: Date of last visit : Visit date not found 02/25/2023 I inc her pap settings at last visit but the settings did not stay CURRENT VISIT: 11/16/2024 INTERVAL HISTORY: SLEEP APNEA Sleep apnea type : ESTEBAN, Most Recent Apnea-Hypopnea Index (AHI): RDI 9.8, AHI 5.8 Treatment : PAP therapy DME: [employer] PAP History: Uses AutoPAP for 8 hours [...] due to drowsy drivin 09/04/2022 11/08/2022 02/24/2023 [place] Sleepiness Scale Score 9 (No clinically significant [...] due to drowsy drivin 09/04/2022 11/08/2022 02/24/2023 [place] Sleepiness Scale Score 9 (No clinically significant [...] wheezing/shortness of b (more content not included)... [facility] 11-15-2024 Telephone encounter Note [employer] message sent to patient. [facility] 11-15-2024 Miscellaneous Notes [employer] message sent to patient. documented in this encounter [facility] 11-15-2024 Instructions Kate Silva MD - [...] your Ritalin and Adderall prescriptions today via [facility]. Use the prescribed Nizoral shampoo for your seborrheic dermatitis, following the instructions provided with the product. Stay well-hydrated by drinking plenty of fluids and including electrolyte beverages (such as Body Armor, Gatorade, or Pedialyte) daily. When checking your blood pressure at home, follow the cuff instructions carefully (for example, holding it at the correct level) to ensure accurate readings. Schedule an appointment at [facility] for a consultation about your depression and anxiety. documented in this encounter [facility] 11-08-2024 Note HNO ID: [id number] Author: SHER HOLLINGSWORTH APRN.MERLIN Service: ? Author [...] psychiatry Outbursts of (more content not included)... [facility] 11-08-2024 History of Present illness Narrative SUBJECTIVE [...] Long-Term Current Use of Insulin ([facility]) - 01/27/2024 Fatty Liver - 01/27/2024 Obesity, [...] Sher Hollingsworth APRN-MERLIN documented in this encounter [facility] 11-02-2024 Instructions Sher Hollingsworth APRN.CNP - 11/02/2024 9:26 AM EDT Seroquel is for helping with sleep and mood. Propranolol is to help with heart rate, palpations, and anxiety. Ativan is to help with anxiety and panic attacks. documented in this encounter [facility] 11-02-2024 Note HNO ID: [id number] Author: SHER HOLLINGSWORTH APRN.CNP Service: ? Author Type: Nurse Practitioner Type: Progress Notes Filed: 11/02/2024 09:37 Note Text: SUBJECTIVE Katie Forde is a 23 year old female here today for an ER follow up. Chief Complaint Patient presents with: ER F/U: [facility] ER fatigue and having trouble sleep [...] to his father's terminal illness. Recording using [employer] software for draft documentation of the visit was discussed with the patient/authorized manufacturers service representative; all questions welcomed and answered. Patient/authorized manufacturers service representative agreed to proceed Her medications [...] [START ON 11/19 (more content not included)... [facility] 11-02-2024 History of Present illness Narrative SUBJECTIVE Katie Forde is a 23 year old female here today for an ER follow up. Chief Complaint Patient presents with: ER F/U: [facility] ER fatigue and having trouble sleep [...] and causing significant stress to her family. aKtie suspects that her worsening anxiety may be [...] to his father's terminal illness. Recording using [employer] software for draft documentation of the visit was discussed with the patient/authorized manufacturers service representative; all questions welcomed and answered. Patient/authorized manufacturers service representative agreed to proceed Her medications [...] Long-Term Current Use of Insulin ([facility]) - 01/27/2024 Fatty Liver - 01/27/2024 Obesity, [...] Sher Hollingsworth APRN-MERLIN documented in this encounter [facility] 10-26-2024 Note HNO ID: [id number] Author: SHER HOLLINGSWORTH APRN.CNP Service: ? Author [...] drained by her current situation. Recording using [employer] software for draft documentation of the visit was discussed with the patient/authorized manufacturers service representative; all questions welcomed and answered. Patient/authorized manufacturers service representative agreed to proceed Her medications [...] (PRILOSEC) 20 mg (more content not included)... [facility] 10-26-2024 History of Present illness Narrative SUBJECTIVE [...] drained by her current situation. Recording using [employer] software for draft documentation of the visit was discussed with the patient/authorized manufacturers service representative; all questions welcomed and answered. Patient/authorized manufacturers service representative agreed to proceed Her medications [...] appointment.. JB Winslow documented in this encounter [facility] 10-25-2024 Radiology Diagnostic study note [facility] Imaging Services [address] [place], [place] [address] Chest 1 View (Portable) MR#: [id number] Acct: [id number] Name: KATIE FORDE Rep #: [id number] : 2000 F 23 From: Naren Oakes MD PCP: Dr. Kate Silva MD Status: RE G ER Study:Chest 1 View (Portable) Date of Exam: 10/25/24 Exam# [id number] Ordering Dr: Pérez Ren MD PROCEDURE: CHEST [...] No evidence of acute disease. Reading Location: [id number] CC: Dr. Pérez Ren MD; Dr. Kate Silva MD ~ Sheep Shearer: Signed [facility] 10-22-2024 Note HNO ID: [id number] Author: ESTRELLITA KUMAR APRN.CNP Service: ? Author Type: Nurse Practitioner Type: Progress Notes Filed: 10/22/2024 09:30 Note Text: [facility] Neurologic [place] New Patient Evaluation This visit was conducted via virtual platform. I have communicated my name and active licensure. The patient's identity and physical location were verified at the time of this visit. Either the patient or their legal manufacturers service representative has been informed of the [...] outside; thought maybe could be panic attack. [place] lightheaded then. Depersonalization chronic. Feels like she [...] change. + photo/phonophobi (more content not included)... [facility] 10-20-2024 Note HNO ID: [id number] Author: KATE SILVA MD Service: ? Author Type: Physician Type: Progress Notes Filed: 11/15/2024 00:43 Note Text: This note was created using [employer]. Subjective Katie Forde is a 23 year old female. Patient presents with: ED Follow-up: lightheadedness, fatgiue x 1 month Katie is a 23-year-old female with a history of leukocytosis, depression, and anxiety, presenting with persistent fatigue, lightheadedness, and a recent onset of cough. Katie reports persistent fatigue and lightheadedness since the beginning of September, which have led to three ER visits: two at [facility] and one at [facility]. She notes that the lightheadedness has improved, [...] count at 17.5. 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 She denies any suicidal [...] Take 1 ca (more content not included)... [facility] 10-20-2024 History of Present illness Narrative This note was created using [employer]. Subjective Katie Forde is a 23 year old female. Patient presents with: ED Follow-up: lightheadedness, fatgiue x 1 month Katie is a 23-year-old female with a history of leukocytosis, depression, and anxiety, presenting with persistent fatigue, lightheadedness, and a recent onset of cough. Katie reports persistent fatigue and lightheadedness since the beginning of September, which have led to three ER visits: two at [facility] and one at [facility]. She notes that the lightheadedness has improved, [...] count at 17.5. She notes that her jail keeper is not concerned about the elevated count, stating that Katie's white blood cell count has always been semi-high. She was advised to take a baby aspirin, which she has taken a couple of times but not consistently. Katei also reports a recent onset of a [...] anxiety and has been seen at the [facility] in the past. She denies any suicidal [...] by current illness. - Facilitated referral to [facility] for psychological evaluation and therapy. # Dandruff (L21.0) # Seborrheic dermatitis (L21.9) - Prescribed Nizoral shampoo to be used twice weekly; advised to use regular shampoo on other days. # Attention deficit hyperactivity disorder (ADHD), combined type (F90.2) - Refilled Ritalin and Adderall prescriptions; sent to [facility]. Kate Silva MD Recording using [employer] software for draft documentation of the visit was discussed with the patient/authorized manufacturers service representative; all questions welcomed and answered. Patient/authorized manufacturers service representative agreed to proceed documented in this encounter [facility] 10-14-2024 Telephone encounter Note Patient notified. Kristin Newby RN The following approved medication requests have been transmitted electronically. Requested Prescriptions Signed Prescriptions Disp Refills clobetasol (TEMOVATE) 0.05 % cream 60 g 0 Sig: Apply to affected area 2x/day for 2 weeks, then 1x/day for a week, than 1-3x/week for maintenance. Pharmacy Information Pharmacy Address [id number] [place] [address] [facility] 10-14-2024 Miscellaneous Notes Patient notified. Kristin Newby RN The following approved medication requests have been transmitted electronically. Requested Prescriptions Signed Prescriptions Disp Refills clobetasol (TEMOVATE) 0.05 % cream 60 g 0 Sig: Apply to affected area 2x/day for 2 weeks, then 1x/day for a week, than 1-3x/week for maintenance. Pharmacy Information Pharmacy Address [id number] [place] [address] Left message to call office. Francisca Hernandez RN Please let the pt know that her biopsy shows Lichen simplex chronicus. This is just chronic inflammation of the tissue. I will send in Clobetasol cream every day, 2x/day for 14 days. Then 3x/week consistently. Pat Ferrer APRN.MERLIN documented in this encounter [facility] 10-14-2024 Telephone encounter Note Left message to call office. Francisca Hernandez RN [facility] 10-14-2024 Telephone encounter Note Please let the pt know that her biopsy shows Lichen simplex chronicus. This is just chronic inflammation of the tissue. I will send in Clobetasol cream every day, 2x/day for 14 days. Then 3x/week consistently. Pat Ferrer APRN.CNP [facility] 10-14-2024 Note . MICRO - Microbiology [...] Locations *1: This test was performed at: [address], [facility] , [facility] 10-11-2024 Note HNO ID: [id number] Author: GOPAL YANEZ MD Service: ? Author [...] to report Referred back to me by [place] [facility], she's been seen for out of [...] Take at approx. (more content not included)... [facility] 10-11-2024 History of Present illness Narrative (Elements [...] to report Referred back to me by [place] [facility], she's been seen for out of [...] which included preparing to see the patient, [id number] patient care, completing clinical documentation, obtaining and/or reviewing separately obtained history, performing a medically appropriate examination, counseling and educating the patient/family/caregiver, ordering medications, tests, or procedures, independently interpreting results (not separately reported), and communicating results to the patient/family/caregiver. Electronically Signed: Gopal Yanez MD October 11, 2024 documented in this encounter [facility] 10-11-2024 History of Present illness Narrative [...] Pat Ferrer APRN.MERLIN documented in this encounter [facility] 10-11-2024 Note HNO ID: [id number] Author: PAT FERRER APRN.CNP Service: ? Author [...] material given to the patient. Pat Ferrer APRN.JAMB CUTTER [facility] 10-11-2024 Instructions Arminda Montoya LPN - 10/11/2024 9:22 AM EDT VULVAR BIOPSY PATIENT INSTRUCTIONS Many conditions may cause your user experience designer to suggest a vulvar biopsy including vulvar itching unresponsive to therapy, ulcerated lesions, pigmented lesions, and tumors. The biopsy result will assist your user experience designer to devise a treatment plan suitable to [...] contact your physician. documented in this encounter [facility] 10-08-2024 Telephone encounter Note Pt read [employer] message. Ami Alberts MA [facility] 10-08-2024 Miscellaneous Notes Pt read [facility] message. Ami Alberts MA My chart message sent to patient. Zohreh Fregoso LPN Noted CBC in ER with WBC up to 16+. Also noted that ER doctor recommended hematology and neurology consults. Will touch base with jail keeper before sending formal order so they can make recommendations for labs to order prior as indicated. Consult order filed for neurology. Patient reports she was seen in [facility] ER on 09/29/24 & 10/06/24 for [...] patient with reply. documented in this encounter [facility] 10-08-2024 Telephone encounter Note My chart message sent to patient. Zohreh Fregoso LPN [facility] 10-07-2024 Telephone encounter Note Noted CBC in ER with WBC up to 16+. Also noted that ER doctor recommended hematology and neurology consults. Will touch base with jail keeper before sending formal order so they can make recommendations for labs to order prior as indicated. Consult order filed for neurology. [facility] 10-07-2024 Telephone encounter Note Spoke w pt and she is scheduled w Dr Eric for10/11. Reno Mccollum [facility] 10-07-2024 Miscellaneous Notes Spoke w pt and she is scheduled w Dr Eric for10/11. Reno Mccollum She is already established with Dr. Yanez. Please schedule a follow up visit with him. Eli Tilley RN Patient states she was at [facility] ED and they informed her to contact hematology for scheduling. Please review and advise. Patient had seen Dr. Burris 07/[address] Yanez 12/2022, 06/2023 documented in this encounter [facility] 10-07-2024 Telephone encounter Note She is already established with Dr. Yanez. Please schedule a follow up visit with him. Eli Tilley RN [facility] Work Phone: 10-07-2024 Telephone encounter Note Patient reports she was seen in [facility] ER on 09/29/24 & 10/06/24 for [...] and neurology? Please MyChart patient with reply. [facility] 10-07-2024 Telephone encounter Note Patient states she was at [facility] ED and they informed her to contact hematology for scheduling. Please review and advise. Patient had seen Dr. Burris 07/[address] Yanez 12/2022, 06/2023 [facility] Work Phone: 10-06-2024 Discharge summary [facility] 10-06-2024 Radiology Diagnostic study note [facility] Imaging Services [address] [place] [id number] Brain/Head without Contrast MR#: [id number] Acct: [id number] Name: KATIE FORDE Rep #: [id number] : 2000 F 23 From: Cecy Jaimes MD PCP: Dr. Kate Silva MD Status: RE G ER Study:Brain/Head without Contrast Date of Exa m: 10/06/24 Exam# [id number] Ordering Dr: Mike Feldman DO PROCEDURE: BRAIN/HEAD [...] Silva MD; Dr. Mike Feldman DO ~ Sheep Shearer: Signed [facility] 10-06-2024 Discharge summary Note Date/Time October 06, 2024 10:26pm [facility] Medical Records Department [address] [place] [address] Emergency Department Summary 10/06/24 MR#: [id number] Acct: [id number] Name: KATIE FORDE Rep #:[id number] : [...] denies urinary symptoms. [facility] similar symptoms: [facility] Medical History Depersonalization disorder Fatty liver [...] clinician: N/A This note was generated with [employer] dictation software. It may contain incorrectwords, spelling, [...] (Auto) 72.5 H Lymph % (Auto) 21.6 Sullivan % (Auto) 4.6 Eos % (Auto) 0.4 [...] IMPRESSION: No acute intracranial abnormality. Reading [facility] Discharge Plan Triage Chief Complaint: General Illness [...] for further workup if needed. Print Language: Thai Disposition Disposition: Home, Self Care What to do if you have Problems For any increased pain, shortness of breath, bleeding, nausea or vomiting, chestpain, or any unexpected problems, contact your Primary Care Provider. Call [facility] ([phone]) or report to the closest Emergency Room. Call 911 if necessary. 10/06/242225 <Electronically signed by Mike Caballero> Cosigner Signature (if applicable): CC: Dr. Kate Silva MD ~ Signed [facility] Work Phone: [phone]) 948-903904-04-2025 Instructions* Patient Instructions* Kate Silva MD - [...] symptoms persist or worsen. [facility]25 NoteHNO ID: [id number] Author: KATE SILVA MD Service: ? Author Type: Physician Type: Progress Notes Filed: 10/01/2024 11:22 Note Text: This note was created using [employer]. Subjective Katie Forde is a 23 year [...] issues with her kidneys. She has tried afdg-dnj-hpfmtwj Dramamine for the lightheadedness but reports that [...] days. Patient should start (more content not included)...[facility]04-04-2025 History of Present illness Narrative* Kate Silva MD - 10/01/2024 10:49 AM EDT This note was created using [employer]. Subjective Katie Forde is a 23 year [...] issues with her kidneys. She has tried efcq-mts-jarbkmc Dramamine for the lightheadedness but reports that [...] Thought content normal. Judgment: Judgment normal. From [facility]: Labs: - (no date) - CBC: [...] pharmacy Kate Silva MD [facility] Discharge summary [facility] Medical Records Department [address] [place] [address] Emergency Department Summary 09/29/24 MR#: [id number] Acct: [id number] Name: KATIE FORDE Rep #:[id number] : 2000 23 From: Shiv Molina PCP: Dr. Kate Silva MD Status:RE G ER Location: ED HPI History of Present Illness Chief Complaint: Weakness PFSH [facility] Medical History Smoker Marfan syndrome ADHD [...] History obtained from others: none Consults: none [facility] Narrative: The patient was initially hemodynamically, [...] Dispo: Discharge This note was generated with mon.ki dictation software. It may contain incorrectwords, spelling, [...] % (Auto) 66.7 Lymph % (Auto) 25.9 Sullivan % (Auto) 5.8 Eos % (Auto) 0.5 [...] Clarity Clear Urine pH 7.0 Ur Specific [place] 1.010 Urine Protein 15 H Urine Glucose [...] 20:52 IMPRESSION: No Acute Findings. Reading [facility] Discharge Plan Triage Chief Complaint: Weakness ED [...] for further outpatient evaluationand management. Print Language: Thai Disposition Disposition: Home, Self Care What to do if you have Problems For any increased pain, shortness of breath, bleeding, nausea or vomiting, chestpain, or any unexpected problems, contact your Primary Care Provider. Call [facility] ([phone]) or report tothe closest Emergency Room. Call 911 if necessary. 09/29/242152 Cosigner Signature (if applicable): CC: Dr. Kate Silva MD ~ Signed [facility]04-02-2025 Radiology Diagnostic study note [facility] Imaging Services [address] [facility] [address] Chest 1 View (Portable) MR#: [id number] Acct: [id number] Name: KATIE FORDE Rep #: [id number] : 2000 F 23 From: Abhishek Cortes DO PCP: Dr. Kate Silva MD Status: RE G ER Study:Chest 1 View (Portable) Date of Exam: 09/29/24 Exam# [id number] Ordering Dr: James Roper DO PROCEDURE: CHEST [...] Silva MD; Dr. Shiv Roper DO ~ Sheep Shearer: Signed [facility]04-02-2025 Discharge summary Author Shiv Roper [facility] Note Date/Time September 29, 2024 9:53 pm [facility] Medical Records Department [address] [facility] [place] [address] Emergency Department Summary 09/29/24 MR#: [id number] Acct: [id number] Name: KATIE FORDE Rep #:[id number] : 2000 23 From: Shiv Molina PCP: Dr. Kate Silva MD Status:RE G ER Location: ED HPI History of Present Illness Chief Complaint: Weakness PFSH [facility] Medical History Smoker Marfan syndrome ADHD [...] History obtained from others: none Consults: none [facility] Narrative: The patient was initially hemodynamically, [...] Dispo: Discharge This note was generated with mon.ki dictation software. It may contain incorrectwords, spelling, [...] % (Auto) 66.7 Lymph % (Auto) 25.9 Sullivan % (Auto) 5.8 Eos % (Auto) 0.5 [...] Clarity Clear Urine pH 7.0 Ur Specific [place] 1.010 Urine Protein 15 H Urine Glucose [...] for further outpatient evaluationand management. Print Language: Thai Disposition Disposition: Home, Self Care What to do if you have Problems For any increased pain, shortness of breath, bleeding, nausea or vomiting, chestpain, or any unexpected problems, contact your Primary Care Provider. Call [facility] ([phone]) or report to the closest Emergency Room. Call 911 if necessary. 09/29/242152 <Electronically signed by Shiv Roper DO> Cosigner Signature (if applicable): CC: Dr. Kate Silva MD ~ Signed [facility] Work Phone: [phone]) 776-574503-31-2025 Telephone encounter Note* Telephone Encounter - Pat Ferrer APRN.CNP - 09/27/2024 5:08 PM EDT Order filed. Pat Ferrer APRN.CNP [facility]03-31-2025 Miscellaneous Notes* Telephone Encounter - Pat Ferrer APRN.CNP - 09/27/2024 5:08 PM EDT Order filed. Pat Ferrer APRN.CNP * Telephone Encounter - Kristin Newby RN - 09/27/2024 3:03 PM EDT Please file order so patient can schedule. Kristin Newby RN documented in this encounter[facility] Telephone encounter Note * Telephone Encounter - Kristin Newby RN - 09/27/2024 3:03 PM EDT Please file order so patient can schedule. Kristin Newby RN [facility]03-17-2025 Telephone encounter Note* Telephone Encounter - [...] Recinos LPN September 13, 2024 9:50 AM [facility]03-17-2025 Miscellaneous Notes* Telephone Encounter - Negin [...] 13, 2024 9:50 AM documented in this encounterOhio[facility]25 Telephone encounter Note * Telephone Encounter - Lorri Quintanilla MA - 09/09/2024 8:25 AM EDT See update from pt regarding symptoms. Lorri Quintanilla MA [facility]03-13-2025 Miscellaneous Notes* Telephone Encounter - Lorri Quintanilla MA - 09/09/2024 8:25 AM EDT See update from pt regarding symptoms. Lorri Quintanilla MA * Telephone Encounter - Cookie Scales OCCA - 08/23/2024 3:02 PM EST Please advise on patients lab work from 08/09. Thank you. NARA Rooney documented in this encounterOhio[facility]-2025 NoteHNO ID: [id number] Author: SANTI MCALLISTER MD Service: ? Author Type: Physician Type: Progress Notes Filed: 08/30/2024 14:34 Note Text: Santi Mcallister MD Interventional Cardiology [address] [place] [address] [phone] Chief Complaint Patient presents with: Follow Up: [...] 100 Each 11 Norethind (more content not included)...[facility]03-03-2025 History of Present illness Narrative* Santi Mcallister MD - 08/30/2024 2:28 PM EST Images from the original note were not included. Santi Mcallister MD Interventional Cardiology [address] [address] [phone] Chief Complaint Patient presents with: Follow Up: [...] to correct any errors. documented in this encounterOhio[facility]-2025 NoteHNO ID: [id number] Author: RADHA LONG PA-C Service: ? Author Type: Physician Community Resource Consultant Type: Progress Notes Filed: 08/24/2024 10:36 Note Text: This note was created using [employer]. Subjective Katie Forde is a 23 year [...] TABLET - BENZONATATE 100 MG CAPSULE ADITYA [facility]02-25-2025 History of Present illness Narrative* Radha Long PA-C - 08/24/2024 10:34 AM EST This note was created using [employer]. Subjective Katie Forde is a 23 year [...] CAPSULE Radha Long PA-C documented in this encounterOhio[facility]-2025 Telephone encounter Note * Telephone Encounter - Cookie Scales OCCA - 08/23/2024 3:02 PM EST Please advise on patients lab work from 08/09. Thank you. NARA Rooney [facility]02-10-2025 Instructions* Patient Instructions* Kate Silva MD - 08/09/2024 11:33 AM EST - Adderall XR 30 mg and Ritalin prescriptions sent to [facility]; call the pharmacy 3 days before you need a refill to ensure they have it in stock. - Apply Triamcinolone cream to affected areas twice daily for up to 14 days as needed for eczema; prescription sent to [facility]. - Use CeraVe Itch Relief lotion and [...] - Schedule a follow-up appointment with your user experience designer for a Pap test and discuss the need for avulvar biopsy. - Next appointment in 3 months. documented in this encounterOhio[facility]02-10-2025 NoteHNO ID: [id number] Author: KATE SLIVA MD Service: ? Author Type: Physician Type: Progress Notes Filed: 08/09/2024 23:21 Note Text: This note was created using [employer]. Subjective Katie Forde is a 23 year [...] 17 but not filled by her pharmacy, [facility]. She also requests medication for nausea and eczema. She is due for a Pap smear and a vulvar biopsy due to recurrent yeast infections, as recommended by her user experience designer. PAST MEDICAL HISTORY Diagnosis Date ADHD (attention [...] Take 1 t (more content not included)... [facility]02-10-2025 History of Present illness Narrative* Kate Silva MD - 08/09/2024 11:02 AM EST This note was created using [employer]. Subjective Katie Forde is a 23 year [...] 17 but not filled by her pharmacy, [facility]. She also requests medication for nausea and eczema. She is due for a Pap smear and a vulvar biopsy due to recurrent yeast infections, as recommended by her user experience designer. PAST MEDICAL HISTORY Diagnosis Date ADHD (attention [...] 30 mg and Ritalin prescriptions; sent to [facility]. - Provided prescriptions for September 08 and [...] Advised monitoring for yeast infections; follow-up with user experience designer recommended. # Eczema, unspecified type (L30.9) - [...] management. Kate Silva MD documented in this encounterOhio[facility]25 Telephone encounter Note * Telephone Encounter - Shukri Duenas MA - 07/19/2024 7:52 AM EST Patient phones requesting refills as follows: Requested Prescriptions Pending Prescriptions Disp Refills omeprazole (PRILOSEC) 20 mg capsule 90 capsule 1 Sig: Take 1 capsule by mouth once daily. On empty stomach at least 30 minutes before eating. Please review and advise. Shukri Duenas MA [facility]01-20-2025 Miscellaneous Notes* Telephone Encounter - Shukri Duenas MA - 07/19/2024 7:52 AM EST Patient phones requesting refills as follows: Requested Prescriptions Pending Prescriptions Disp Refills omeprazole (PRILOSEC) 20 mg capsule 90 capsule 1 Sig: Take 1 capsule by mouth once daily. On empty stomach at least 30 minutes before eating. Please review and advise. Shukri Duenas MA documented in this encounterOhio[facility]01-14-[facility]25 Telephone encounter Note * Telephone Encounter - Pat Ferrer APRN.CNP - 07/13/2024 3:44 PM EST Pt needs scheduled for vulvar biopsy. Pat Ferrer APRN.CNP [facility]01-14-2025 Miscellaneous Notes* Telephone Encounter - Pat Ferrer APRN.CNP - 07/13/2024 3:44 PM EST Pt needs scheduled for vulvar biopsy. Pat Ferrer APRN.CNP documented in this encounterOhiohealth Riverside [facility] Hospital12-19-2024 Telephone encounter Note * Telephone Encounter [...] 3-4 pm. Authorizing Provider: KATE SILVA MD [facility]12-19-2024 Miscellaneous Notes* Telephone Encounter - Kate [...] you. Karen Urias LPN. documented in this encounterOhiohealth Riverside [facility] Hospital12-19-2024 Telephone encounter Note * Telephone Encounter [...] Please advise. Thank you. Karen Urias LPN. [facility]12-03-2024 Telephone encounter Note* Telephone Encounter - Eulalia Hobbs RN - 06/01/2024 8:47 AM EST MyChart message sent to patient. [facility]12-03-2024 Miscellaneous Notes* Telephone Encounter - Eulalia Hobbs RN - 06/01/2024 8:47 AM EST MyChart message sent to patient. documented in this encounterOhiohealth [facility]ide [facility] Hospital11-27-2024 Telephone encounter Note * Telephone Encounter - Negin Recinos LPN - 05/26/2024 7:25 AM EST Anything else to add? [facility]11-27-[facility]24 Miscellaneous Notes* Telephone Encounter - Negin Recinos LPN - 05/26/2024 7:25 AM EST Anything else to add? documented in this encounterOhiohealth Riverside [facility] Hospital11-20-2024 NoteHNO ID: [id number] Author: ARTHUR JOSEPH PA-C Service: ? Author Type: Physician Community Resource Consultant Type: Progress Notes Filed: 05/19/2024 12:09 Note Text: This note was created using [employer]. Subjective Katie Forde is a 23 year [...] rhythm. Heart sounds: Nor (more content not included)...[facility] 05-19-2024 History of Present illness Narrative* Arthur Joseph PA-C - 05/19/2024 12:06 PM EST This note was created using Xiami Music Networkriter. Subjective Katie Forde is a 23 year [...] worsen. Arthur Joseph PA-C documented in this encounterOhiohealth Riverside [facility] Hospital11-19-2024 Telephone encounter Note * Telephone Encounter - Sher Hollingsworth APRN.CNP - 05/18/2024 7:12 AM EST [facility] All prescriptions have been APPROPRIATELY filled. No suspiciousactivity was identified. 05/18/2024 by Sher Hollingsworth APRN.CNP [facility]11-19-2024 Miscellaneous Notes* Telephone Encounter - Sher Hollingsworth APRN.CNP - 05/18/2024 7:12 AM EST [facility]. All [...] 17, 2024 4:11 PM documented in this encounterOhiohealth Riverside [facility] Hospital11-18-2024 Telephone encounter Note * Telephone Encounter [...] Recinos LPN May 17, 2024 4:11 PM [facility]11-14-[facility]24 Telephone encounter Note* Telephone Encounter - [...] medications regardless of results. Kelly Nunez APRN.CNM [facility] Work Phone: [phone] Miscellaneous Notes* Telephone Encounter - Kelly Nunez [...] will be picking up Brexafemme from [facility] today to start that. Please advise Pt on what she needs to do.Princess Govea RN documented in this encounterOhiohealth Riverside Methodist Hospital11-14-2024 Telephone encounter Note * Telephone Encounter - Princess Govea RN - 05/13/2024 10:02 AM EST Please see Pt's mycRoadtripperst messages from today and address in BRYAN and RM absence. Pt seen in office yesterday for vulvar itching. She will be picking up Brexafemme from [facility] today to start that. Please advise Pt on what she needs to do.Princess Govea RN [facility]11-13-2024 NoteHNO ID: [id number] Author: REBECA BEASLEY APRN.CNM Service: ? Author Type: Fur Trimming Machine Operator Type: Progress Notes Filed: 05/12/2024 16:49 Note Text: Silver Miner Blasting offered: Patient declines. Katie Forde is a [...] no testing 02/10/24 Positive Yeimy 12/12/23 Positive Yiemy Fluconzaole 150mg PO once 09/11/23 Positive Yeimy [...] L0 SAB0 IAB0 Ectopic0 Multiple0 Live Births0 Tower Technician History LMP: 03/31/2024 (Exact Date), Having periods Age at Menarche: Age at First : Age at Menopause: Tower Technician History Comments: Sexual Activity: Not Currently; Male [...] sensitive examination was discu (more content not included)...[facility]11-13-2024 History of Present illness Narrative* Rebeca Beasley APRN.DIEGO - 05/12/2024 3:56 PM EST Silver Miner Blasting offered: Patient declines. Katie Forde is a [...] L0 SAB0 IAB0 Ectopic0 Multiple0 Live Births0 Tower Technician History LMP: 03/31/2024 (Exact Date), Having periods Age at Menarche: Age at First : Age at Menopause: Tower Technician History Comments: Sexual Activity: Not Currently; Male [...] discussed with the Patient or Patient's Authorized Collision Center Manager. As applicable, any other physician, advance practice provider, medical student, or other health professional student that will be observing or involved in the sensitive examination for educational or training purposes was discussed with the Patient or Authorized Collision Center Manager. The Patient or Authorized Collision Center Manager has agreed to proceed with the sensitive examination. (Sensitive examination includes inspection and/or palpation of the breasts, pelvis, prostate and anorectal regions). EXAM: BP 120/80 Wt 301 lb 3.2 oz (136.6kg) LMP 03/31/2024 GENERAL: pleasant, female in no apparent distress PELVIC: external genitalia normal, normal Bartholin's glands, urethra, [place]'s glands, no vulvar lesions, no cervical lesions, [...] treatment Rebeca Beasley APRN.CNM documented in this encounterOhiohealth [facility]ide [facility]11-01-2024 History of Present illness Narrative* Sher [...] some urinary frequency. Has been working with broomcorn press feeder for issues with persistent vaginal yeast infections. [...] long-term current use of insulin ([facility]) - ICD9: 250.00, ICD10: E11.9 (primary [...] - ICD9: 112.1, ICD10: B37.31 Working with broomcorn press feeder. Portions of this note have been entered [...] medications.. Sher Hollingsworth APRN-MERLIN documented in this encounterOhiohealth Riverside [facility]11-01-2024 Instructions* Patient Instructions* Negin Recinos LPN [...] treated. A physician, nurse practitioner or physician psychiatric nursing assistant may treat with a short course [...] women if symptoms resolve. documented in this encounterOhiohealth Riverside [facility]10-15-2024 Telephone encounter Note * Telephone Encounter [...] Please advise. Thank you. Karen Urias LPN. [facility]10-15-2024 Miscellaneous Notes* Telephone Encounter - Karen Urias [...] you. Karen Urias LPN. documented in this encounterOhiohealth Riverside [facility] Hospital09-20-2024 History of Present illness Narrative* Sher Hollingsworth APRN.JAMB CUTTER - 03/19/2024 10:08 AM EDT SUBJECTIVE Katie [...] medication.. Sher Hollingsworth APRN-MERLIN documented in this encounterOhiohealth [facility]ide [facility]09-16-2024 Telephone encounter Note * Telephone Encounter - Sher Hollingsworth APRN.CNP - 03/15/2024 3:50 PM EDT PDMP website checked and validated. All prescriptions have been APPROPRIATELY filled. No suspiciousactivity was identified. 03/15/2024 by Sher Hollingsworth APRN.CNP [facility]09-16-2024 Miscellaneous Notes* Telephone Encounter - Sher Hollingsworth APRN.CNP - 03/15/2024 3:50 PM EDT PDMP website checked and validated. All prescriptions have been APPROPRIATELY filled. No suspiciousactivity was identified. 03/15/2024 by Sher Hollingsworth APRN.MERLIN * Telephone Encounter - Courtney Holocmb LPN - 03/15/2024 3:30 PM EDT Prescription [...] 15, 2024 3:30 PM documented in this encounterOhiohealth Riverside [facility] Hospital09-16-2024 Telephone encounter Note * Telephone Encounter [...] Holcomb LPN March 15, 2024 3:31 PM [facility]09-16-2024 Miscellaneous Notes* Telephone Encounter - Courtney [...] 15, 2024 3:31 PM documented in this encounterOhiohealth Riverside [facility] Hospital09-16-2024 Telephone encounter Note * Telephone Encounter [...] Holcomb LPN March 15, 2024 3:30 PM [facility]09-06-2024 Telephone encounter Note* Telephone Encounter - [...] Forde MA March 05, 2024 11:40 AM [facility]09-06-2024 Miscellaneous Notes* Telephone Encounter - Zelalem [...] 05, 2024 11:40 AM documented in this encounterOhiohealth Riverside [facility] Hospital09-05-2024 History of Present illness Narrative* Pat Ferrer APRN.JAMB CUTTER - 03/04/2024 12:37 PM EDT Katie Forde [...] L0 SAB0 IAB0 Ectopic0 Multiple0 Live Births0 Tower Technician History LMP: 10/21/2023 (Exact Date), Having periods Age at Menarche: Age at First : Age at Menopause: Tower Technician History Comments: Sexual Activity: Not Currently; Male [...] Level: 3 - Low documented in this encounterOhiohealth Riverside [facility] Hospital09-03-2024 History of Present illness Narrative* Rebeca Foley APRN.CNP - 03/02/2024 12:36 PM EDT This note was created using Xiami Music Networkriter. Subjective Katie Forde is a 23 year [...] history is provided by the patient. No foreign language stenographer was used. Nasal Congestion This is a [...] worsen. Rebeca Foley APRN.CNP documented in this encounterOhiohealth [facility]ide [facility]08-21-2024 Telephone encounter Note * Telephone Encounter - Natalie Mcrae RN - 02/18/2024 2:18 PM EDT Patient informed and scheduled [facility]08-21-2024 Miscellaneous Notes* Telephone Encounter - Natalie [...] 01/26 Sher Cunha visit documented in this encounterOhiohealth Riverside [facility] Hospital08-21-2024 Telephone encounter Note * Telephone Encounter - Raquel Marcano APRN.CNP - 02/18/2024 2:03 PM EDT Recommend follow up appointment with RM for management of recurrent yeast as this will likely be anissue with new DM diagnosis.Rx sent for Monistat to pharmacy - her insurance may cover it. Raquel Marcano APRN.JAMB CUTTER [facility]08-21-2024 Telephone encounter Note* Telephone Encounter - Natalie Mcrae RN - 02/18/2024 1:41 PM EDT Last seen for annual in 2020? Has been seen for problem visits since then. Looks like recently diagnosed with Type 2 diabetes -see 01/26 Sher Cunha visit [facility]08-14-[facility] Telephone encounter Note* Telephone Encounter - [...] Montoya LPN February 11, 2024 7:56 AM [facility]08-14-2024 Miscellaneous Notes* Telephone Encounter - Janny [...] 11, 2024 7:56 AM documented in this encounterOhiohealth [facility]ide [facility] Hospital08-14-2024 Telephone encounter Note * Telephone Encounter - Janny Montoya LPN - 02/11/2024 7:52 AM EDT Our records show a valid rx at the pharmacy. Janny Montoya LPN [facility]08-14-2024 Miscellaneous Notes* Telephone Encounter - Janny Montoya LPN - 02/11/2024 7:52 AM EDT Our records show a valid rx at the pharmacy. Janny Montoya LPN documented in this encounterOhiohealth Riverside [facility] Hospital08-13-2024 History of Present illness Narrative* Pat Ferrer APRN.JAMB CUTTER - 02/10/2024 2:49 PM EDT Silver Miner Blasting offered: Patient declines. Katie Forde is a 23 year old female who presents for problem visit for a Yeast Infection. HPI: Patient is here for a yeast infection, she is having discharge. She has been using the boric acid w/o resolve of symptoms OB History T0 L0 SAB0 IAB0 Ectopic0 Multiple0 Live Births0 Tower Technician History LMP: 10/21/2023 (Exact Date), Having periods Age at Menarche: Age at First : Age at Menopause: Tower Technician History Comments: Sexual Activity: Not Currently; Male [...] external genitalia normal, normal Bartholin's glands, urethra, [place]'s glands, no vulvar lesions, no cervical lesions, [...] Level: 3 - Low documented in this encounterOhiohealth [facility]ide [facility]08-12-2024 Telephone encounter Note * Telephone Encounter [...] Holcomb LPN February 09, 2024 2:58 PM [facility]08-12-2024 Miscellaneous Notes* Telephone Encounter - Courtney [...] 09, 2024 2:58 PM documented in this encounterOhiohealth Riverside [facility] Hospital08-05-2024 History of Present illness Narrative* Gerardo Holder MD - 02/02/2024 2:44 PM EDT Gerardo Holder MD Department of Orthopaedics Orthopaedics [address] [facility] [address] Dept: [phone] Dept February 02, 2024 CHIEF COMPLAINT: New [...] IMPRESSION: NORMAL APPEARANCE OF THE RIGHT HAND Sheep Shearer: [facility] Transcribe Date/Time: Dec 17 2023 10:37A [...] anxiety) Gerardo Holder MD documented in this encounterOhiohealth Riverside [facility] Hospital07-30-2024 History of Present illness Narrative* Sher Hollingsworth APRN.JAMB CUTTER - 01/27/2024 2:00 PM EDT SUBJECTIVE Katie Forde is a 23 year old female here today for a check up on her medical problems. Chief Complaint Patient presents with: Results: discuss A1C results HPI Katie Forde is a 23 year old female. She is an established patient of Kate Silva MD. Here today for concerns of lab results that broomcorn press feeder checked. Recent ultrasound noted Adenomyosis. Labs checked [...] cessation, blood pressure goals, cholesterol goals, what [id number] means and what their goals are, how [...] medication.. Sher Hollingsworth APRN-MERLIN documented in this encounterOhiohealth [facility]ide [facility]07-29-2024 Telephone encounter Note * Telephone Encounter - Pat Ferrer APRN.CNP - 01/26/2024 10:21 AM EDT Spoke with pt regard her labs. A1c 6.6, instructed her to call her PCP for further follow up. D/C provera and ordered Selma Discussed risk of miscarriage due to diabetes and the importance of weight loss and control blood sugar for . Pat Ferrer APRN.CNP [facility]07-29-2024 Miscellaneous Notes* Telephone Encounter - Pat Ferrer APRN.CNP - 01/26/2024 10:21 AM EDT Spoke with pt regard her labs. A1c 6.6, instructed her to call her PCP for further follow up. D/C provera and ordered Selma Discussed risk of miscarriage due to diabetes and the importance of weight loss and control blood sugar for . Pat Ferrer APRN.CNP documented in this encounterOhiohealth Riverside [facility] Hospital07-26-2024 Note Indication Evaluation of abnormal uterine [...] adenomyosis. Recommendations Clinical correlation is recommended. History HYDRODYNAMICIST History Other: pt takes provera to induce [...] Richards RDMS Read By: Georgia Millan M.D.MATERNAL [id number] History of Present illness Narrative* Georgia Millan MD - 01/23/2024 1:13 PM EDT Katie Forde presents for scheduled HYDRODYNAMICIST ultrasound. Please see full report under the Imaging tab in Epic for details. Georgia Millan MD documented in this encounterOhiohealth Riverside [facility] Hospital07-12-2024 Telephone encounter Note * Telephone Encounter [...] 12, 2024. Authorizing Provider: KATE SILVA MD [facility]07-12-[facility]24 Miscellaneous Notes* Telephone Encounter - Kate [...] 09, 2024 10:54 AM documented in this encounterOhiohealth Riverside [facility] Hospital07-12-2024 Telephone encounter Note * Telephone Encounter [...] Fregoso LPN January 09, 2024 1:54 PM [facility]07-12-2024 Telephone encounter Note* Telephone Encounter - [...] Marcia Faulkner January 09, 2024 10:54 AM [facility]06-24-[facility] Instructions* Patient Instructions* Kera Joseph APRN.JAMB CUTTER - 12/22/2023 5:36 PM EDT ASSESSMENT/PLAN: 1. Foot injury, left, initial encounter - ICD9: 959.7, ICD10: S99.922A - XR FOOT GENERAL 3V AP/LAT/OBL LEFT RESULT: No acute fracture or dislocation. Joint spaces are maintained. IMPRESSION: No acute osseous abnormality. Sheep Shearer: SILVIANO Transcribe Date/Time: Dec 22 2023 4:56P [...] pillows when lying down. documented in this encounterOhiohealth Riverside [facility] Hospital06-24-2024 History of Present illness Narrative* Natalie [...] PATIENT PRESENTS WITH AN IMPLANTABLE OR ATTACHED SPEECH PATHOLOGY SUPERVISOR: No RADIOLOGY DEPARTMENT: General X-ray: Exam(s) Completed: Lower Extremity X- Ray(s): Foot, Left PERIPHERAL IV DATA: Not applicable SIGNED BY: RT Casimiro(R) December 22, 2023 4:44 PM documented in this encounterOhiohealth Riverside [facility] Hospital06-24-2024 History of Present illness Narrative* Kera Joseph APRN.JAMB CUTTER - 12/22/2023 4:45 PM EDT Subjective Pain [...] are maintained. IMPRESSION: No acute osseous abnormality. Sheep Shearer: SILVIANO Transcribe Date/Time: Dec 22 2023 4:56P [...] Discussed expected course of illness Kera Joseph APRN.JAMB CUTTER documented in this encounterOhiohealth Riverside [facility] Hospital06-19-2024 History of Present illness Narrative* Natalie [...] PATIENT PRESENTS WITH AN IMPLANTABLE OR ATTACHED SPEECH PATHOLOGY SUPERVISOR: No RADIOLOGY DEPARTMENT: General X-ray: Exam(s) Completed: Upper Extremity X- Ray(s): Hand, right PERIPHERAL IV DATA: Not applicable SIGNED BY: RT Casimiro(R) December 17, 2023 9:46 AM documented in this encounterOhiohealth Riverside [facility] Hospital06-19-2024 History of Present illness Narrative* DonatoaryaTerrence orozcoHARLAN.JAMB CUTTER - 12/17/2023 9:26 AM EDT This note was created using Xiami Music Networkriter. Subjective Katie Forde is a 22 year [...] she was agreeable. Patient will continue use ogid-pdi-idcsmxn pain medication as needed. - XR HAND GENERAL 3V PA/LAT/OBL RIGHT - CONSULT PANEL TO ORTHOPAEDICS Terrence Hill APRN.MERLIN documented in this encounterOhiohealth Riverside [facility] Hospital06-18-2024 Telephone encounter Note * Telephone Encounter - Rose Carmona RN - 12/16/2023 8:51 AM EDT Reviewed Medication list and seen Ordered On: 4Discontinued On: 12/15/2023 New RX for Diflucan pending. Rose Carmona RN [facility]06-18-2024 Miscellaneous Notes* Telephone Encounter - Rose Carmona RN - 12/16/2023 8:51 AM EDT Reviewed Medication list and seen Ordered On: 4Discontinued On: 12/15/2023 New RX for Diflucan pending. Rose Carmona RN documented in this encounterOhiohealth Riverside [facility] Hospital06-17-2024 Telephone encounter Note * Telephone Encounter - Karen Urisa LPN - 12/15/2023 6:28 PM EDT Patient [...] Please advise. Thank you. Karen Urias LPN. [facility]06-17-2024 Miscellaneous Notes* Telephone Encounter - Karen rUias LPN - 12/15/2023 6:28 PM EDT Patient [...] you. Karen Urias LPN. documented in this encounterOhiohealth Riverside Methodist Hospital06-17-2024 Nurse Note* Kierra Byrd MA - [...] Byrd MA December 15, 2023 1:31 PM [facility]06-17-20[facility] Nurse Note* Kierra Byrd MA - [...] 15, 2023 1:31 PM documented in this encounterOhiohealth Riverside Methodist Hospital06-17-2024 History of Present illness Narrative* Sher Hollingsworth APRN.JAMB CUTTER - 12/15/2023 1:04 PM EDT SUBJECTIVE Katie [...] Right ear with 100% occlusion, irrigated per administrative support manager and then manual removal of 80%of wax, [...] for Keep next scheduled appointment.. Sher Hollingsworth APRN-JAMB CUTTER documented in this encounterOhiohealth Riverside [facility] Hospital06-17-2024 Telephone encounter Note * Telephone Encounter - Francisca Hernandez RN - 12/15/2023 11:09 AM EDT Patient notified and voiced understanding. Francisca Hernandez RN [facility]06-17-2024 Miscellaneous Notes* Telephone Encounter - Francisca [...] sent. Pat Ferrer APRN.CNP documented in this encounterOhiohealth Riverside [facility] Hospital06-17-2024 Telephone encounter Note * Telephone Encounter - Rose Carmona RN - 12/15/2023 8:31 AM EDT Left message for patient to call office. Rose Carmona RN [facility]06-17-2024 Telephone encounter Note* Telephone Encounter - Pat Ferrer APRN.CNP - 12/15/2023 7:07 AM EDT +yeast, Diflucan sent. Pat Ferrer APRN.CNP [facility]06-14-[facility] History of Present illness Narrative* Pat Ferrer APRN.CNP - 12/12/2023 12:35 PM EDT Silver Miner Blasting offered: Patient declines. Katie Forde is a [...] external genitalia normal, normal Bartholin's glands, urethra, [place]'s glands, no vulvar lesions, no cervical lesions, [...] Level: 3 - Low documented in this encounterOhiohealth Riverside [facility]06-13-2024 Telephone encounter Note * Telephone Encounter [...] 28, 2023. Authorizing Provider: KATE SILVA MD [facility]06-13-2024 Miscellaneous Notes* Telephone Encounter - Kate [...] 10, 2023 3:24 PM documented in this encounterOhiohealth Riverside [facility] Hospital06-12-2024 Telephone encounter Note * Telephone Encounter [...] Recinos LPN December 10, 2023 3:24 PM [facility]06-04-[facility] History of Present illness Narrative* Marielena West APRN.JAMB CUTTER - 12/02/2023 12:21 PM EDT Patient came [...] will take her today. documented in this encounterOhiohealth Riverside [facility] Hospital05-21-2024 History of Present illness Narrative* Gaurav Tavarez - 11/18/2023 11:01 AM EDT CMN RECEIVED BY [employer] VIA FAX, COMPLETED, AND PLACED IN PROVIDER MAILBOX FOR SIGNATURE Gaurav Tavarez 11/18/23 [employer] SENDING CMN: Mahi SIGNED AND DATED CMN, FAXED TO DME & CONFIRMATION PAGE RECEIVED: 11/28/23 documented in this encounterOhiohealth Riverside [facility] Hospital05-17-2024 Telephone encounter Note * Telephone Encounter [...] Please advise. Thank you. Negin Recinos LPN. [facility]-17-[facility] Miscellaneous Notes* Telephone Encounter - Negin [...] you. Negin Recinos LPN. documented in this encounterOhiohealth Riverside [facility] Hospital05-14-2024 NoteHNO ID: [id number] Author: JOEL BAI RN Service: ? Author Type: Registered Nurse Type: Progress Notes Filed: 11/11/2023 16:29 Note Text: CBC, IN[facility]Mainegeneral [facility]05-14-2024 History of Present illness Narrative* Joel Bai RN - 11/11/2023 4:26 PM EDT CBC, INR ordered documented in this encounterOhiohealth Riverside [facility] Hospital04-24-2024 History of Present illness Narrative* Estrellita [...] which included preparing to see the patient, cfau-yr-svlb patient care, completing clinical documentation, obtaining and/or reviewing separately obtained history, performing a medically appropriate examination, counseling and educating the pat ient/family/caregiver, ordering medications, tests, or procedures, communicating with other HCPs (not separately reported), independently interpreting results (not separately reported), communicatingresults to the patient/family/caregiver, and care coordination (not separately reported). Estrellita Molina PA-C October 22, 2023 1:16 PM documented in this encounterOhiohealth Riverside [facility]04-11-2024 History of Present illness Narrative* Aria Russell PA - 10/09/2023 11:48 AM EDT This note was created using [employer]. Subjective Katie Forde is a 22 year [...] eat and drink.She has not tried anything dscg-cip-femirev for her symptoms. Her mom was recently [...] ER evaluation. ADITYA Swann documented in this encounterOhiohealth Riverside [facility] Hospital03-19-2024 History of Present illness Narrative* Kate Silva MD - 09/16/2023 11:52 AM EDT This note was created using [employer]. Subjective Katie Forde is a 22 year [...] practitioner who could do Botox injections in [place] so would not have to travel far out of [place] for treatment. - We will monitor the [...] aid in quitting vaping. Note drafted by [employer]. Note reviewed, edited, and signed by the visit provider. documented in this encounterOhiohealth Riverside [facility] Hospital03-14-2024 Instructions* Patient Instructions* Pat Ferrer APRN.CNP - 09/11/2023 10:23 AM EDT Boric acid suppositories use 1 nightly for 14 nights, then 1 weekly during Diflucan treatment. documented in this encounterOhiohealth Riverside Methodist Hospital03-14-2024 History of Present illness Narrative* Pat [...] year and multiple treatments with Diflucan and btcu-odb-ixohmtj's. OB History T0 L0 SAB0 IAB0 Ectopic0 Multiple0 Live Births0 Tower Technician History LMP: 07/17/2023 (Exact Date), Having periods Age at Menarche: Age at First : Age at Menopause: Tower Technician History Comments: Sexual Activity: Not Currently; No [...] external genitalia normal, normal Bartholin's glands, urethra, [place]'s glands, no vulvar lesions, no cervical lesions, [...] Level: 4 - Moderate documented in this encounterOhiohealth Riverside [facility] Hospital02-19-2024 History of Present illness Narrative* Los [...] My Chart. MDM: Patient [facility] to the [facility] for viral testing. Katie Forde has symptoms [...] A/B & RSV NAAT, ROUTINE Los Barber APRN.JAMB CUTTER documented in this encounterOhiohealth Riverside Methodist Hospital02-14-2024 Miscellaneous Notes* Telephone Encounter - Woody [...] dose. WOODY PALAFOX RN documented in this encounterOhiohealth Riverside Methodist Hospital02-12-2024 Miscellaneous Notes* Addendum Note - Eboni Hardin - 08/11/2023 4:06 PM ESTAddended by: EBONI HARDIN on: 08/11/2023 04:06 PM Modules accepted: Orders documented in this encounterOhiohealth Riverside Methodist Hospital02-12-2024 History of Present illness Narrative* Los Barber APRN.CNP - 08/11/2023 12:16 PM EST SUBJECTIVE: Katie Forde is a 22 year old female. Who presents today with pain in R hand after hitting a wallover and over until her hand was swollen and bruised. This happened 3 weeks ago. She went to the [facility] had xrays done that were negative for [...] ICD9: V58.89, 923.20, ICD10: S60.221D Los Barber APRN.JAMB CUTTER documented in this encounterOhiohealth Riverside Methodist Hospital02-12-2024 History of Present illness Narrative* Nicolle Hopson MD - 08/11/2023 10:48 AM EST [employer] offered: Patient accepts, visit chaperoned by Zohreh [...] external genitalia normal, normal Bartholin's glands, urethra, [place]'s glands, no vulvar lesions, no cervical lesions, [...] patient. Nicolle Hopson MD documented in this encounterOhiohealth Riverside [facility] Hospital01-17-2024 History of Present illness Narrative* Gopal [...] MD July 16, 2023 documented in this encounterOhiohealth Riverside Methodist Hospital12-08-2023 Instructions* Patient Instructions* Kate Silva MD - 06/06/2023 4:29 PM EST Start Paxil (paroxetine) at half pill daily for 1 to 2 weeks then increase to whole tablet as needed as tolerated. If after 1 month the 20 mg is not adequate, we can increase dose to either 30 or 40 mg daily. documented in this encounterOhiohealth Riverside Methodist Hospital12-08-2023 History of Present illness Narrative* Kate Silva MD - 06/06/2023 4:20 PM EST This note was created using Xi[employer] Music Network[employer]. Subjective Katie Forde is a 22 year [...] for depression) and is hyperactive (Treated by senior biostatistician; current meds effect victorino). Objective BP 112/72 [...] management. Kate Silva MD documented in this encounterOhiohealth Riverside Methodist Hospital11-20-2023 Miscellaneous Notes* Telephone Encounter - Kate [...] Thank you. NARA Rooney. documented in this encounterOhiohealth Riverside Methodist Hospital11-16-2023 Miscellaneous Notes* Telephone Encounter - Rebeca [...] or ob ifs/s persist. documented in this encounterOhiohealth Riverside Methodist Hospital11-15-2023 History of Present illness Narrative* Marielena [...] symmetric Physical Exam Exam conducted with a machine stripper cutter present. Constitutional: Appearance: Normal appearance. Pulmonary: Effort: [...] plan. Marielena West APRN.CNP documented in this encounterOhiohealth Riverside Methodist Hospital10-30-2023 History of Present illness Narrative* Rebeca [...] 28, 2023 1:58 PM documented in this encounterOhiohealth Riverside Methodist Hospital10-24-2023 Instructions* Patient Instructions* Zuleika Avalos PA-C - 04/22/2023 10:26 AM EDT - Start over there counter probiotic with at least 15 billion live cultures, 10+ strains - Drink around 64 oz water daily - Benefiber daily: 2 teaspoons added to 8 ounces of water up to 3 times daily. documented in this encounterOhiohealth Riverside Methodist Hospital10-24-2023 History of Present illness Narrative* Zuleika [...] which included preparing to see the patient, utzy-xj-ihvi patient care, completing clinical documentation, obtaining and/or reviewing separately obtained history, performing a medically appropriate examination, counseling and educating the pat ient/family/caregiver, and ordering medications, tests, or procedures. Zuleika Avalos PA-C April 22, 2023 10:29 AM documented in this encounterOhiohealth Riverside Methodist Hospital10-19-2023 History of Present illness Narrative* Rebeca [...] 17, 2023 2:18 PM documented in this encounterOhiohealth Riverside [facility] Hospital10-18-2023 Miscellaneous Notes* Telephone Encounter - Fernanda [...] Thank you. NARA Rooney. documented in this encounterOhiohealth Riverside [facility] Hospital10-11-2023 History of Present illness Narrative* Kelly [...] any recent changes in health or medications. Tower Technician History LMP: 01/17/2023, Having periods Age at Menarche: Age at First : Age at Menopause: Tower Technician History Comments: Sexual Activity: Not Currently; No [...] care Kelly Nunez APRN.CNM documented in this encounterOhiohealth Riverside Methodist Hospital09-21-2023 Instructions* Patient Instructions* Keeley Severino APRN.JAMB CUTTER - 03/20/2023 11:28 AM EDT Amoxicillin as [...] on the other side. documented in this encounterOhiohealth Riverside Methodist Hospital09-21-2023 History of Present illness Narrative* Keeley Severino APRN.CNP - 03/20/2023 11:20 AM EDT Subjective The history is provided by the patient and a friend. No foreign language stenographer was used. HPI Katie Forde is a [...] have confirmed and edited as necessary, the [facility] Review of Systems Constitutional: Negative for [...] indetail warranting prompt ER evaluation. Keeley Severino APRN.JAMB CUTTER' documented in this encounterOhiohealth Riverside Methodist Hospital09-19-2023 Miscellaneous Notes* Telephone Encounter - Roseanna Dumont LPN - 03/18/2023 4:05 PM EDT Pt scheduled for 04/09/23 at 1:30 with MANDA. Roseanna Dumont LPN * Telephone Encounter - Suyapa Recinos MD - 03/18/2023 12:41 PM EDT Needs appointment, doesn't have to be w/ me. Suyapa Recinos MD * Telephone Encounter - Roseanna Dumont LPN - 03/17/2023 11:48 AM EDT Please see pt's LRNt message and further advise. Pt is aware that you are out of the office until 03/18/23. Roseanna Dumont LPN documented in this encounterOhiohealth Riverside [facility] Hospital09-12-2023 Miscellaneous Notes* Telephone Encounter - Karen [...] you. Karen Urias LPN documented in this encounterOhiohealth Riverside Methodist Hospital09-12-2023 Miscellaneous Notes* Telephone Encounter - Karen [...] you. Karen Urias LPN documented in this encounterOhiohealth Riverside [facility] Hospital08-29-2023 Instructions* Patient Instructions* Hailey Jett MD - 02/25/2023 2:02 PM EDT ESTEBAN: -Increase from 5-10 cm H2O to 5-15 cmH2O. - Remember to clean your mask and equipment regularly, as directed. - You should be eligible for new supplies approximately every 3-6 months, depending on your insurance coverage. Contact your [employer] (DME) company for new supplies as needed. - Follow up in 2-3 months with Hailey Jett MD or my associates. [facility] REQUIREMENTS: - Your insurance requires a eptp-sb-imty follow up visit within a 31-90 day [...] treatment, there are resources available at the [facility] such as a nutrition consultation or referral to weight management programs at our [facility] [place]. Please let us know if we can [...] as instructed by the respiratory therapist with [facility] [place]. Attach one end of your 6-foot tubing [...] mask and headgear as instructed by the charge histotechnologist or respiratory therapist. The mask should fit [...] thoroughly and dry with paper towels. Avoid landcare facilitator that contain fragrance or conditioners, as these [...] machine still fails to operate, please call [phone] or your home care company for assistance. [...] to last 9-12 months. Refer to the crucible furnace tender s manual for more information. Important Safety [...] follow to watch a PAP education video: http://my.[facility].org/home_care/services/home_respiratory_therapy.aspx http://www.youtube.com/watch?v=peJ_epDGzEw http://my.[facility].org/neurological_institute/pcibt-mjseebxoq-quwffm/[facility]-services/pap-therapy.aspx documented in this encounterOhiohealth Riverside Methodist Hospital08-29-2023 History of Present illness Narrative* Hailey Jett MD - 02/25/2023 1:51 PM EDT Images from the original note were not included. [facility] Virtual Visit Follow up/ Established patient visit Date of last visit : Visit date not found I have communicated my name and active licensure. The patient's identity and physical location wereverified at the time of this visit. Either the patient or their legal manufacturers service representative has been informed of the [...] (5cmh2o) mild esteban -we will ask the spares scheduler to schedule with anybody in sleep medicine. Per patient preference, I MyChart message her regarding her results, I ordered AutoPap 5-10 cm H2O.Penelope's Purse. SLEEP APNEA Sleep apnea type : ESTEBAN, Most Recent Apnea-Hypopnea Index (AHI): RDI 9.8, AHI 5.8 Treatment : PAP therapy [employer] PAP History: Uses AutoPAP for 8 hours [...] or near accidents due to drowsy drivin [place] Sleepiness Scale 09/04/2022 11/08/2022 02/24/2023 Score 9 [...] with Hailey Jett MD or my associates. [facility] REQUIREMENTS: - Your insurance requires a tuut-qy-zbae follow up visit within a 31-90 day [...] Jett MD Staff, Sleep Disorders Center Appt: [phone] Opt 5 Mail: [address] [place] [address] I spent a total of 30 minutes on the date of the service which included preparing to see the patient, iorb-xn-zxmw patient care, completing clinical documentation, obtaining and/or reviewing separately obtained history, performing a medically appropriate examination, counseling and educating the pat ient/family/caregiver, and ordering medications, tests, or procedures. Activity Duration Current session 22 minutes Total time: 22 minutes* *Based only on time spent in the patient's chart documented in this encounterOhiohealth Riverside Methodist Hospital08-23-2023 Miscellaneous Notes* Telephone Encounter - Harsh Sahni MA - 02/19/2023 9:12 AM EDT Images from the original note were not included. documented in this encounterOhiohealth Riverside Methodist Hospital08-04-2023 History of Present illness Narrative* John Paul Saldaña - 01/31/2023 8:21 AM EDT CMN RECEIVED BY [employer] VIA FAX, COMPLETED, AND PLACED IN PROVIDER MAILBOX FOR SIGNATURE John Paul Saldaña, Administration Assistance 01/31/23 [employer] SENDING CMN: Mahi SIGNED AND DATED CMN, FAXED TO [employer] & CONFIRMATION PAGE RECEIVED: 02/06/23 documented in this encounterOhiohealth Riverside Methodist Hospital08-01-2023 History of Present illness Narrative* 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 APRN.VICE PRESIDENT & GENERAL MANAGER [employer] - 01/28/2023 1:40 PM EDT SUBJECTIVE: COVID-19 [...] deficiency noted, repletionendorsed. She was referred to jail keeper for chronic platelet and white blood cell [...] Was previously effective. She notes using Aleve zewt-hgh-elixvea and hemp cream along with sleep helps [...] noted. Helps with concentration. Previously prescribed by senior biostatistician, Dr. Smalls. Some rare heartburn noted, taking [...] Wt 135.2 kg (298 lb) LMP 01/17/2023 DsS221% BMI 38.26 kg/m Physical Exam Vitals and [...] Kate Silva MD - establish 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 APRN.VICE PRESIDENT & GENERAL MANAGER [employer] Medical Decision Making: Problems: Moderate: 2+ stable chronic illnesses Risk: Moderate: Drug management Medical Decision Making Level: 4 - Moderate Electronically signed by 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 APRN.VICE PRESIDENT & GENERAL MANAGER [employer] at 01/28/2023 2:06 PM EDT documented in this encounterOhiohealth Riverside [facility] Hospital07-17-2023 Miscellaneous Notes* Telephone Encounter - Marci Lynch LPN - 01/13/2023 4:05 PM EDT Pap order faxed to [facility] with demographics, office notes with confirmation. documented in this encounterOhiohealth Riverside Methodist Hospital07-17-2023 History of Present illness Narrative* Gopal [...] which included preparing to see the patient, lckp-ip-eszn patient care, completing clinical documentation, obtaining and/or reviewing separately obtained history, performing a medically appropriate examination, counseling and educating the pat ient/family/caregiver, ordering medications, tests, or procedures, independently interpreting results (not separately reported), and communicating results to the patient/family/caregiver. Electronically Signed: Gopal Yanez MD January 13, 2023 2:31 PM documented in this encounterOhiohealth Riverside Methodist Hospital07-17-2023 Miscellaneous Notes* Telephone Encounter - Zelalem Forde Ma - 01/13/2023 2:06 PM EDT Pending. documented in this encounterOhiohealth Riverside Methodist Hospital07-17-2023 History of Present illness Narrative* Hailey Jett MD - 01/13/2023 9:45 AM EDT S/p PAP titration ORDERED Autopap to dme [facility] documented in this encounterOhiohealth Riverside Methodist Hospital07-15-2023 Miscellaneous Notes* Telephone Encounter - Jeannette Arvizu LPN - 01/11/2023 9:48 AM EDT Patient notified. Verbalized understanding. * Telephone Encounter - Aria Russell PA - 01/11/2023 8:05 AM EDT Please let patient know she was positive for yeast. She is already prescribed Diflucan. Take as prescribed. documented in this encounterOhiohealth Riverside Methodist Hospital07-14-2023 History of Present illness Narrative* Aria Russell PA - 01/10/2023 12:02 PM EDT This note was created using [employer]. Subjective Katie Forde is a 22 year [...] nursing note reviewed. Exam conducted with a machine stripper cutter present. Constitutional: General: She is not in [...] ER evaluation. ADITYA Swann documented in this encounterOhiohealth Riverside Methodist Hospital07-13-2023 Miscellaneous Notes* Telephone Encounter - Kate [...] you. Jeannette Arvizu LPN documented in this encounterOhiohealth Riverside Methodist Hospital07-01-2023 NoteHNO ID: [id number] Author: Vince Pastrana Trainee Service: ? Author Type: ? Type: Progress Notes Filed: 12/28/2022 2:23 AM Note Text: Sleep Study Check-In Documentation Date: December 28, 2022 Name: Katie Forde Patient was accompanied by Self. Location: [place] Latex allergy: No Tape allergy: No Current [...] with their ordering provider regarding test results [facility] History of Present illness Narrative* [facility] Trainee - 12/28/2022 2:20 AM EDT Sleep Study Check-In Documentation Date: December 28, 2022 Name: Katie Forde Patient was accompanied by Self. Location: [place] Latex allergy: No Tape allergy: No Current [...] with their ordering provider regarding test results [facility] documented in this encounterOhiohealth Riverside Methodist Hospital06-27-2023 Miscellaneous Notes* Telephone Encounter - Giulia Vo RN - 12/24/2022 5:24 PM EDT Called and the below results reviewed with the patient. Giulia Vo RN * Telephone Encounter - Giulia Vo RN - 12/24/2022 5:19 PM EDT Images from the original note were not included. Rebeca Gonzalez APRN.JAMB CUTTER [facility] Cardiology Pool 2 hours ago (2:28 PM) Monitor looks good. No significant arrhythmia. Echocardiogram looks good. She has normal structure and function. Thank you, Rebeca Gonzalez APRN.JAMB CUTTER * Telephone Encounter - Giulia Vo RN - 12/24/2022 2:14 PM EDT Patient asking for Echo and Zio results. Giulia Vo RN documented in this encounterOhiohealth Riverside Methodist Hospital06-27-2023 History of Present illness Narrative* Kera [...] illness Kera Joseph APRN.CNP documented in this encounterOhiohealth Riverside Methodist Hospital06-27-2023 Instructions* Patient Instructions* Kera Joseph APRN.CNP [...] even if the symptoms go away. 2. Flql-hpt-cmcvqnp pain medication may be taken or other [...] or mouth and then touchesanother person directly (ckjo-tt-bxmf contact) or indirectly (ncfp-ta-pjkvba, such as doorknob, telephone, toys). It is [...] every four months on our web site (www.[email or web address]/patients). Information below was obtained from Up to date Last literature review version 19.2: October 2010 This topic last updated: February 14, 2010 documented in this encounterOhiohealth Riverside Methodist Hospital05-12-2023 Instructions* Patient Instructions* Hailey Jett MD [...] treat mild obstructive sleep apnea. More at: [place] - PAP titration to evaluate for effectiveness [...] the central scheduling system for the [facility] at [phone]. [employer] now offers direct scheduling for patients to schedule appointments. Virtual visits are also available. If not covered by your insurance, there is a 35% discount. Please contact your insurance to determine coverage. Call the office at [phone], option #5 for questions. May use Message My Doc through My Chart for questions. May use My Chart Refills for refill requests. [facility] website: [email or web address]/sleep documented in this encounterOhiohealth Riverside Methodist Hospital05-12-2023 History of Present illness Narrative* Hailey Jett MD - 11/08/2022 4:18 PM EDT Images from the original note were not included. [facility] Follow up/ Established patient visit Date of last visit : 09/06/2022 I have communicated my name and active licensure. The patient's identity and physical location wereverified at the time of this visit. Either the patient or their legal manufacturers service representative has been informed of the [...] or near accidents due to drowsy drivin [place] Sleepiness Scale 09/04/2022 11/08/2022 Score 9 (No [...] Jett MD Staff, Sleep Disorders Center Appt: [phone] Mail: [address] [place] [address] Activity Duration Current session 21 minutes Total time: 21 minutes* *Based only on time spent in the patient's chart documented in this encounterOhiohealth Riverside Methodist Hospital05-09-2023 Miscellaneous Notes* Result Encounter Note - 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 APRN.CNS - 11/05/2022 4:29 PM EDT Spirometry is normal, not a significant bronchodilator response documented in this encounterOhiohealth Riverside Methodist Hospital05-09-2023 History of Present illness Narrative* GIRMA Alfredo - 11/05/2022 11:31 AM EDT PULM FUNCTION SMARTBLOCK: Provider: 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 APRN.CNS Assisting Tech: GIRMA Alfredo Spirometry w/BD: 1 documented in this encounterOhiohealth Riverside Methodist Hospital05-08-2023 History of Present illness Narrative* Rebeca Foley APRN.JAMB CUTTER - 11/04/2022 12:44 PM EDT This note was created using [employer] Network[employer]. Subjective Katie Forde is a 21 year [...] history is provided by the patient. No foreign language stenographer was used. Cough This is a new [...] if symptoms persist or worsen. Rebeca Foley APRN.JAMB CUTTER documented in this encounterOhiohealth Riverside Methodist Hospital05-04-2023 NoteHNO ID: [id number] Author: IGNACIO Ariza Service: Radiology Author Type: Metal Trim Erector Type: Progress Notes Filed: 10/31/2022 1:31 PM [...] BY: IGNACIO Ariza October 31, 2022 1:31 PMGrant [id number] Miscellaneous Notes* Addendum Note - 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 APRN.CNS - 10/28/2022 2:03 PM EDTAddended by: DEMI ALFONSO on: 10/28/2022 02:03 PM Modules accepted: Orders documented in this encounterOhiohealth Riverside Methodist Hospital05-01-2023 Instructions* Patient Instructions* 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 APRN.CNS - 10/28/2022 1:31 PM EDT Start taking topiramate once daily for headache prevention Avoid use of spray on antiperspirant that is causing shortness of breath. documented in this encounterOhiohealth Riverside Methodist Hospital05-01-2023 History of Present illness Narrative* Demi [...] deficiency noted, repletionendorsed. She was referred to jail keeper for chronic platelet and white blood cell [...] Was previously effective. She notes using Aleve zlkt-ptz-jpsjbkw and hemp cream along with sleep helps [...] medications. No adverse effects noted. Previously prescribedby senior biostatistician, Dr. Smalls. Review of Systems Respiratory: Positive [...] F90.2 History of treatment for ADD per senior biostatistician, continue unchanged for now. - METHYLPHENIDATE 20 [...] gym. 3 mo follow up 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 APRN.VICE PRESIDENT & GENERAL MANAGER [employer] 6 mo follow up Kate Silva MD - establish 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 APRN.CNS Medical Decision Making: Problems: Moderate: 2+ stable chronic illnesses Risk: Moderate: Drug management Medical Decision Making Level: 4 - Moderate documented in this encounterOhiohealth Riverside Methodist Hospital04-15-2023 History of Present illness Narrative* Selene Lazar-T - 10/12/2022 4:43 AM EDT Sleep Study Check-In Documentation Date: October 12, 2022 Name: Katie Forde Patient was accompanied by Significant other. Location: [place] Latex allergy: No Tape allergy: Yes Current medications were reviewed with the patient:Yes Sleep aid taken by patient for the sleep study: El Veintiseis of sleep aid: Not Applicable Procedure was [...] results Selene De León documented in this encounterOhiohealth Riverside Methodist Hospital04-13-2023 Miscellaneous Notes* Telephone Encounter - Antonio [...] Last ADHD / Med Check visit: 03/12/22 ([email or web address] message sent that patient overdue for med [...] 04/09/2022 Eden Mcgee RN documented in this encounterOhiohealth Riverside Methodist Hospital04-12-2023 Miscellaneous Notes* Telephone Encounter - Shukri [...] vitamin d it usually isn't taken terminal gauger. documented in this encounterOhiohealth Riverside Methodist Hospital04-12-2023 Miscellaneous Notes* Telephone Encounter - Kierra Mahmood Ma - 10/09/2022 11:13 AM EDT Patient phones requesting refills as follows: Requested Prescriptions Pending Prescriptions Disp Refills omeprazole (PRILOSEC) 20 mg capsule 30 capsule 5 Sig: Take 1 capsule by mouth once daily. Kierra Mahmood CMA documented in this encounterOhiohealth Riverside Methodist Hospital04-03-2023 History of Present illness Narrative* Santi Mcallister MD - 09/30/2022 10:43 AM EDT Images from the original note were not included. Santi Mcallister MD Interventional Cardiology [facility] [address], [place] [address] [phone] Chief Complaint Patient presents with: New Patient [...] INSTRUCTIONS Patient Name: [facility]de [facility] Number: [id number] Skin prepped and cleansed with alcohol Patch secured to prepped area Monitor Activated Serial #: [id number] Patient Instructed: Prescribed order timeframe Bathing guidelines Usage of event button and diary documentation Return of monitor at the end of prescribed order Call with problems [phone] or [phone]. [phone] Patient expresses a good understanding of instructions Laura Brenner RN documented in this encounterOhiohealth Riverside [facility] Hospital03-14-2023 Miscellaneous Notes* Telephone Encounter - Antonio [...] 04/09/2022 Jo-Ann Carreon LPN documented in this encounterOhiohealth Riverside [facility] Miscellaneous Notes* Telephone Encounter - Antonio [...] 04/09/2022 Jo-Ann Carreon LPN documented in this encounterOhiohealth Riverside Methodist Hospital03-13-2023 Miscellaneous Notes* Telephone Encounter - Kristin Newby RN - 09/09/2022 11:54 AM EDT Last Provera rx was sent to [facility] in [place] on 03/29/22 with 11 refills. [email or web address] message sent. Kristin Newby RN documented in this encounterOhiohealth Riverside Methodist Hospital03-10-2023 Instructions* Patient Instructions* Hailey Jett MD [...] detail and any treatments options. - Call [phone] to schedule your sleep study and follow up appointment if it is not scheduled after your visit today with one of our schedulers. Sleep Nurse Practitioners: Roberta Vasquez, [facility] [address] [place] [address] [facility] [address] [place] [id number] [facility] [address] [place] [id number] Friday, Friday, Friday Appt: [phone] Rose Olivares, PhD, [facility] [address] [place] [id number] [facility] [address] [place] [address] Mondays, Tuesdays & Friday Appt: [phone] Nohemy Berry, [facility] [address] [place] [address] [facility] [address] [place] [id number] [facility] [address] [place] [address] Friday, Friday, Friday Appt: [phone] Ondina Kurtz, [facility] [address] [place] [address] [facility] [address] [place] [address] [facility] [address] [place] [address] Friday, , Friday Appt: [phone] Anna Meadows, [facility] [address] [facility] [address] [place] [address] [facility] [address] [place] [address] Friday, Friday, Friday, Friday Appt: [phone] Cherry Kay, [facility] [address] [place] [address] [facility] [address] [place] [address] Friday, Friday, Friday, Friday Appt: [phone] Any appointments can be scheduled through the central scheduling system for the [facility] at [phone]. [facility] now offers direct scheduling for patients to schedule appointments. Virtual visits are also available. If not covered by your insurance, there is a 35% discount. Please contact your insurance to determine coverage. Call the office at [phone], option #5 for questions. May use Message My Doc through My Chart for questions. May use My Chart Refills for refill requests. [facility] website: [email or web address] documented in this encounterOhiohealth Riverside [facility] Hospital03-10-2023 History of Present illness Narrative* Hailey Jett MD - 09/06/2022 1:08 PM EST Images from the original note were not included. [facility] New Patient Evaluation PATIENT NAME: Katie Forde DATE OF SERVICE: September 06, 2022 CONSULTING PROVIDER: Antonio Smalls [address] [facility] [address] REASON FOR CONSULT: Antonio Smalls sends the [...] for visit: Sleep apnea, Excessive daytime sleepiness [place] Sleepiness Scale 09/04/2022 Score 9 (No daytime [...] Jett MD Staff, [facility] Center Appt: [phone] Mail: [address] [facility], [place] [address] Activity Duration Exam room 2 minutes Exam room 27 minutes Current session 1 minute Total time: 31 minutes* *Based only on time spent in the patient's chart documented in this encounterOhiohealth Riverside [facility] Hospital03-09-2023 Instructions* Patient Instructions* ADITYA Swann - [...] Dark urine. Chest pain. documented in this encounterOhiohealth Riverside Methodist Hospital03-09-2023 History of Present illness Narrative* ADITYA Swann - 09/05/2022 11:14 AM EST This note was created using Xiami Music Networkriter. Subjective Katie Forde is a 21 year [...] ER evaluation. ADITYA Swann documented in this encounterOhiohealth Riverside [facility]03-07-2023 Miscellaneous Notes* Telephone Encounter - Zuleika [...] months. Russell Burris DO documented in this encounterOhiohealth Riverside Methodist Hospital03-06-2023 Miscellaneous Notes* Telephone Encounter - Tracy Carreon LPN - 09/02/2022 9:56 AM EST Patient spoke with nurse regarding results this morning. Tracy Carreon LPN documented in this encounterOhiohealth Riverside [facility] Hospital02-28-2023 Miscellaneous Notes* Telephone Encounter - More Dos Santos LPN - 08/27/2022 4:19 PM EST Two are still in process. Will contact pt after Dr Burris reviews them all. pt aware. More Dos Santos LPN * Telephone Encounter - Megha Bloom Pss - 08/27/2022 4:13 PM EST Patient requesting lab results from 08/22. documented in this encounterOhiohealth Riverside Methodist Hospital02-23-2023 History of Present illness Narrative* Russell [...] edema. SKIN: No jaundice or rash. NEUROLOGIC: environmental studies department chair II-XII are grossly intact. No focal motor [...] 3.26 3.42 3.96 4.89 (H) 6.30 (H) Sullivan% % 8.0 7.9 4.9 6.3 5.0 Abs Sullivan <0.87 k/uL 0.85 0.76 0.55 0.74 0.90 [...] Total 6.3 - 8.0 g/dL 7.9 ASSESSMENT/PLAN: (U98.427) Leukocytosis, unspecified type (D78.899) Thrombocytosis Assessment: -The patient is a 21-year-old [...] which included preparing to see the patient, vbpo-yf-drqq patient care, completing clinical documentation, obtaining and/or reviewing separately obtained history, performing a medically appropriate examination, counseling and educating the pat ient/family/caregiver, ordering medications, tests, or procedures, communicating with other HCPs (not separately reported), and communicating results to the patient/family/caregiver. Russell Burris DO documented in this encounterOhiohealth Riverside Methodist Hospital02-15-2023 Miscellaneous Notes* Telephone Encounter - Hemalatha Dejesus MD - 08/14/2022 2:25 PM EST Patient's request for medication is as follows: Pending Prescriptions: Disp Refills amphetamine-dextroamphetamine XR (ADDERALL*30 cap*0 Sig: Take 1 capsule by mouth every morning for 30 days. Prescription(s) as above. Please process accordingly. Hemalatha Dejesus MD * Telephone Encounter - Eden Mcgee RN - 08/14/2022 2:18 PM EST [facility] pharmacy did not have medication in stock original but [facility] now has it. She questions if a new prescription can be sent over for the Adderall XR 30mg. Order pended Eden Mcgee RN documented in this encounterOhiohealth Riverside Methodist Hospital02-08-2023 History of Present illness Narrative* Zuleika [...] given scant sampling and may not be manufacturers service representative of a disease process, if [...] with more than 50% of the total zuyz-ao-sfdo time of the visit in counseling / coordination of care. I have confirmed and edited as necessary, the PFSH and ROS obtained by others. Zuleika Perez PA-C August 07, 2022 1:16 PM documented in this encounterOhiohealth Riverside [facility] Hospital02-07-2023 Miscellaneous Notes* Telephone Encounter - Antonio [...] 04/09/2022 Jo-Ann Carreon LPN documented in this encounterOhiohealth Riverside [facility] Hospital01-19-2023 Miscellaneous Notes* Telephone Encounter - Arminda [...] and chlamydia. Follow-up with your PCP or user experience designer if symptoms persist. documented in this encounterOhiohealth Riverside [facility] Hospital01-10-2023 Miscellaneous Notes* Addendum Note - Arthur Joseph PA-C - 07/09/2022 3:53 PM ESTAddended by: ARTHUR JOSEPH on: 07/09/2022 03:53 PM Modules accepted: Orders documented in this encounterOhiohealth Riverside Methodist Hospital01-10-2023 History of Present illness Narrative* Arthur Joseph PA-C - 07/09/2022 3:32 PM EST This note was created using [employer]. Subjective Katie Forde is a 21 year old female. HPI Patient presents with sinus pressure and congestion and cough over the past 2 weeks. About a month ago she was seen in primary care and diagnosed with sinusitis. She was placed on amoxicillin. She states that had gotten better and then this started 2 weeks ago. No fever. She has tried multiple jqmh-yze-zonvzqi medications without relief. No vomiting or diarrhea. [...] worsen. Arthur Joseph PA-C documented in this encounterOhiohealth Riverside Methodist Hospital01-10-2023 Miscellaneous Notes* Telephone Encounter - Antonio Smalls [...] LPN - 07/09/2022 12:24 PM EST [facility] is out of the Adderall and mom is wondering if the Rx can be sent to [facility] as they have it on hand. New RX pended. Pharmacy info was updated. documented in this encounterOhiohealth Riverside Methodist Hospital01-06-2023 Miscellaneous Notes* Sedation Documentation - Keysha Dawn RN - 07/05/2022 11:12 AM EST Site assessed dressing clean dry and intact * Sedation Documentation - Keysha Dawn RN - 07/05/2022 11:[address] Hayes at bedside with pt. documented in this encounterOhiohealth Riverside Methodist Hospital01-06-2023 Surgical operation note* Brief Op Note - Mirna Hayes MD - 07/05/2022 11:12 AM EST BRIEF OPERATIVE / PROCEDURE NOTE LOG ID: [id number] SURGERY/PROCEDURE DATE: 07/05/2022 INCISION/PROCEDURE START TIME: 10:34 AM INCISION CLOSE/PROCEDURE END TIME: 11:02 AM SURGEON(S)/PROCEDURALIST(S) AND WASTE ELIMINATION(S): Surgeon(s) and Role: * Mirna Hayes MD - Primary No Additional Staff SURGERY/PROCEDURE(S): Ultrasound guided random liver biopsy ANESTHESIA: Procedural Sedation FINDINGS: ESTIMATED BLOOD LOSS: minimal SPECIMENS: multiple cores COMPLICATIONS: None PRE-OP/PRE-PROCEDURE DIAGNOSIS: Hepatic steatosis POST-OP/POST-PROCEDURE DIAGNOSIS: Same as Preop SIGNATURE: Mirna Hayes MD PATIENT NAME: Katie Forde DATE: July 05, 2022 TIME: 11:12 AM documented in this encounterOhiohealth Riverside Methodist Hospital01-06-2023 History and physical note * Mirna [...] TIME: 11:11 AM PAGER: documented in this encounterOhiohealth Riverside Methodist Hospital01-05-2023 Miscellaneous Notes* Telephone Encounter - Antonio [...] RN - 07/03/2022 9:[address] [facility]: greater than one year ago Last ADHD [...] awaiting his return documented in this encounterCleveland [facility]ghc08-24-[facility]01 Miscellaneous Notes* Telephone Encounter - Kristin Newby RN - 07/02/2022 2:19 PM EST Rx for PNV was sent 05/30/22 to [facility] in [place] with 12 refills. [email or web address] message sent. Kristin Newby RN documented in this encounterOhiohealth Riverside Methodist Hospital12-15-2022 Miscellaneous Notes* Addendum Note - Zuleika [...] I gave her the number to [facility] and[facility]. Kierra Mahmood CMA * Telephone Encounter - Zuleika [...] is willing to proceed. documented in this encounterOhiohealth Riverside Methodist Hospital12-14-2022 Miscellaneous Notes* Telephone Encounter - Shukri Duenas MA - 06/12/2022 8:00 AM EST Patient phones requesting refills as follows: Requested Prescriptions Pending Prescriptions Disp Refills omeprazole (PRILOSEC) 20 mg capsule 30 capsule 2 Sig: Take 1 capsule by mouth once daily. Please review and advise. Shukri Duenas MA documented in this encounterOhiohealth Riverside Methodist Hospital12-13-2022 History of Present illness Narrative* Antonio [...] ordered or obtained, is reviewed by a embossing machine operator helper before being considered final. Additional recommendations may [...] been determined (based on review of the calenderer note). Therefore final conclusions regarding symptoms, natural course of the disorder, etc. cannot yet be made. I spent a total of 30-39 minutes on the date of service. This included preparing to see the patient; ifta-im-cfml patient care; obtaining and/or reviewing separately obtained history; performing a medically appropriate examination; counseling and educatingthe patient/family/caregiver; and completing clinical documentation. As applicable, this also included ordering medications, tests, or procedures; independently interpreting results; communicating results to the patient/family/caregiver; and care coordination (not separately reported). This note was partially generated using mon.ki voice recognition system, and there may be some incorrect words, spellings, and punctuation that were not noted in checking the note before saving. Antonio Smalls M.D. documented in this encounterOhiohealth Riverside Methodist Hospital12-13-2022 Miscellaneous Notes* Telephone Encounter - Zuleika Perez PA-C - 06/11/2022 7:54 AM EST Full liver panel ordered. documented in this encounterOhiohealth Riverside Methodist Hospital12-09-2022 Miscellaneous Notes* Telephone Encounter - Antonio [...] 06/07/2022 2:20 PM EST Mom daniel. States [facility] does not have Adderall XR 30mg in stock. She questions if you can send the prescription to [facility] instead. Order pended Eden Mcgee RN documented in this encounterOhiohealth Riverside Methodist Hospital12-08-2022 Miscellaneous Notes* Telephone Encounter - Antonio [...] 20 mg to be sent to the [facility]. Megha Mcdonnell LPN documented in this encounterOhiohealth Riverside Methodist Hospital12-01-2022 Miscellaneous Notes* Telephone Encounter - Kristin Newby RN - 05/30/2022 3:51 PM EST On 03/29/22 a new rx was sent to [facility] with 11 refills. [email or web address] message sent to patient. Kristin Newby RN documented in this encounterOhiohealth Riverside [facility] Hospital12-01-2022 History of Present illness Narrative* Suyapa [...] L0 SAB0 IAB0 Ectopic0 Multiple0 Live Births0 Tower Technician History LMP: 03/13/2022 (Approximate), Having periods Age at Menarche: Age at First : Age at Menopause: Tower Technician History Comments: Sexual Activity: Not Currently; No [...] N/A Suyapa Recinos MD documented in this encounterOhiohealth Riverside [facility] Hospital11-25-2022 Miscellaneous Notes* Telephone Encounter - Natalie [...] do. Roseanna Dumont LPN documented in this encounterOhiohealth Riverside Methodist Hospital11-10-2022 History of Present illness Narrative* Antonio Smalls MD - 05/09/2022 9:34 AM EST Rx signed while sibling at a visit. Antonio Smalls MD documented in this encounterOhiohealth Riverside [facility] Hospital11-08-2022 Instructions* Patient Instructions* Annia Hogan APRN.MERLIN [...] in a wedge pillow. documented in this encounterOhiohealth Riverside Methodist Hospital11-08-2022 History of Present illness Narrative* Annia [...] for internal providers or letter via the [employer] for external providers. HPI: Katie [...] which included preparing to see the patient, hjjo-hs-irxi patient care, completing clinical documentation, obtaining and/or reviewing separately obtained history, performing a medically appropriate examination, counseling and educating the pat ient/family/caregiver, ordering medications, tests, or procedures, communicating with other HCPs (not separately reported), independently interpreting results (not separately reported), communicatingresults to the patient/family/caregiver, and care coordination (not separately reported). Annia Hogan APRN.CNP May 09, 2022 3:05 PM documented in this encounterOhiohealth Riverside Methodist Hospital11-04-2022 Miscellaneous Notes* Telephone Encounter - Roseanna Dumont LPN - 05/03/2022 7:49 AM EDT Please review pt's mychart message in RR absence. Roseanna Dumont LPN documented in this encounterOhiohealth Riverside Methodist Hospital11-01-2022 Miscellaneous Notes* Telephone Encounter - Dylan Aldridge RN - 04/30/2022 3:53 PM EDT patient notified via Backchathart message Dylan Aldridge RN * Telephone Encounter [...] visit. This note was partially generated using mon.ki voice recognition system, and there may be some incorrect words, spellings, and punctuation that were not noted in checking the note before saving. Antonio Smalls MD documented in this encounterOhiohealth Riverside Methodist Hospital10-31-2022 History of Present illness Narrative* Rebeca Chinchilla, KEVINMD - 04/29/2022 9:15 AM EDT Radiology Service [...] 29, 2022 9:49 AM documented in this encounterOhiohealth Riverside Methodist Hospital10-21-2022 Miscellaneous Notes* Telephone Encounter - Eden Mcgee RN - 04/19/2022 9:20 AM EDT Spoke with patient, transferred to [facility] for scheduling Eden Mcgee RN * Telephone [...] placed. This note was partially generated using mon.ki voice recognition system, and there may be some incorrect words, spellings, and punctuation that were not noted in checking the note before saving. Antonio Smalls MD documented in this encounterOhiohealth Riverside Methodist Hospital10-20-2022 History of Present illness Narrative* Antonio [...] ordered or obtained, is reviewed by a embossing machine operator helper before being considered final. Additional recommendations may [...] 1.00 - 4.00 k/uL 3.96 4.89 (H) Sullivan% % 4.9 6.3 Abs Sullivan <0.87 k/uL 0.55 0.74 Eosin% % 1.3 [...] & Units 07/03/2020 07/12/2021 COVID 19 Source CLINICAL RESEARCH PHYSICIAN UPPER RESPIRATORY TRACT SWAB UPPER RESPIRATORY TRACT SWAB Influenza A PCR Negative for Influenza A by RT PCR Influenza B PCR Negative for Influenza B by RT PCR COVID 19 Result CLINICAL RESEARCH PHYSICIAN Negative for COVID19 (SARS CoV2) by RT-PCR [...] Specific Question: Does consulting provider have [facility] access? Answer: Yes I spent a total of 40-54 minutes on the date of service. This included preparing to see the patient; ettp-vh-kgis patient care; obtaining and/or reviewing separately obtained history; performing a medically appropriate examination; counseling and educatingthe patient/family/caregiver; and completing clinical documentation. As applicable, this also included ordering medications, tests, or procedures; independently interpreting results; communicating results to the patient/family/caregiver; and care coordination (not separately reported). This note was partially generated using mon.ki voice recognition system, and there may be some incorrect words, spellings, and punctuation that were not noted in checking the note before saving. Antonio Smalls M.D. documented in this encounterOhiohealth Riverside Methodist Hospital10-07-2022 Miscellaneous Notes* Telephone Encounter - Eden [...] evaluation. I would recommend scheduling a 30-minute qqlk-fn-dtve visit. This note was created using a speech to text program. There may be some incorrect words, spellings,and punctuation that were missed on review. Antonio Smalls M.D. documented in this encounterOhiohealth Riverside [facility] Hospital10-06-2022 Miscellaneous Notes* Telephone Encounter - Antonio [...] time. This note was partially generated using mon.ki voice recognition system, and there may be [...] months. This note was partially generated using mon.ki voice recognition system, and there may be some incorrect words, spellings, and punctuation that were not noted in checking the note before saving. Antonio Smalls MD documented in this encounterOhiohealth Riverside Methodist Hospital09-30-2022 History of Present illness Narrative* Suyapa [...] C/o small swollen area by perineum, present retirement. not painful OB History T0 L0 SAB0 IAB0 Ectopic0 Multiple0 Live Births0 Tower Technician History LMP: 03/13/2022 (Approximate), Having periods Age at Menarche: Age at First : Age at Menopause: Tower Technician History Comments: Sexual Activity: Not Currently; No [...] atraumatic, mucus membranes moist, and no lesions HYDRODYNAMICIST- n ormal enxternal genitalia, small perianal skin tag ASSESSMENT AND PLAN: irreg menses d/w her exercise/wt loss may help offered cycle provera vs combined hormonal contraceptives elects for cyclic provera. Declines contraception reassured about peianal skin tag Medical Decision Making: Medical Decision Making Level: 1 - N/A Suyapa Recinos MD documented in this encounterOhiohealth Riverside Methodist Hospital09-14-2022 Miscellaneous Notes* Telephone Encounter - Eden Mcgee RN - 03/13/2022 8:58 AM EDT Left message to call the office, motionID technologiest message also sent Eden Mcgee RN * [...] pain. This note was partially generated using mon.ki voice recognition system, and there may be some incorrect words, spellings, and punctuation that were not noted in checking the note before saving. Antonio Smalls MD documented in this encounterOhiohealth Riverside Methodist Hospital09-13-2022 History of Present illness Narrative* Antonio [...] ordered or obtained, is reviewed by a embossing machine operator helper before being considered final. Additional recommendations may [...] This included preparing to see the patient; gjqm-qb-lcuv patient care; obtaining and/or reviewing separately obtained history; performing a medically appropriate examination; counseling and educatingthe patient/family/caregiver; and completing clinical documentation. As applicable, this also included ordering medications, tests, or procedures; independently interpreting results; communicating results to the patient/family/caregiver; and care coordination (not separately reported). This note was partially generated using mon.ki voice recognition system, and there may be some incorrect words, spellings, and punctuation that were not noted in checking the note before saving. Antonio Smalls M.D. documented in this encounterOhiohealth Riverside [facility] Hospital09-02-2022 Miscellaneous Notes* Telephone Encounter - Kera Joseph APRN.CNP - 03/01/2022 1:46 PM EDT Patient notified of bacterial growth in urine. She states she is still having frequency. Rx for Macrobid sent to pharmacy. Kera Joseph APRN.CNP documented in this encounterOhiohealth Riverside Methodist Hospital08-31-2022 Instructions* Patient Instructions* Maye Rubalcava - [...] Discussed expected course of illness Kera Joseph APRN.JAMB CUTTER documented in this encounterOhiohealth Riverside Methodist Hospital08-31-2022 History of Present illness Narrative* Kera [...] nursing note reviewed. Exam conducted with a machine stripper cutter present. Constitutional: Appearance: She is obese. Cardiovascular: [...] (light brown) present. Comments: Exam performed by BELL MAKER student with CLINICAL RESEARCH PHYSICIAN machine stripper cutter/preceptor at bedside. Skin: General: Skin is warm [...] AMPLIFICATION - GC/CHLAMYDIA DNA DET Maye Rubalcava BELL MAKER student - Follow-up with your PCP in 3-5 days if symptoms have not improved or sooner if symptoms worsen - Discussed red flags and need for immediate medical evaluation if any occur. - Discussed supportive care treatment with fluids, rest and analgesia. - Discussed expected course of illness TEACHING PROVIDER (Physician/PA/BELL MAKER) NOTE OF PERSONAL INVOLVEMENT IN CARE: I have personally seen and examined the patient and performed the medical decision-making components. I have reviewed the Advanced Practice Registered Nurse (BELL MAKER) Student's documentation and verified the findings in the note as written. Any additions or changes are noted in bold/italics. Signature: Kera Joseph Date: 02/27/2022 Time: 3:33 PM documented in this encounterOhiohealth Riverside Methodist Hospital08-24-2022 Instructions* Patient Instructions* Kera Joseph APRN.MERLIN [...] FOOT: Within normal limits. No acute findings. Sheep Shearer: SILVIANO Transcribe Date/Time: Feb 20 2022 7:11P [...] Discussed expected course of illness Kera Joseph APRN.JAMB CUTTER R.I.C.E. The general care of your injury [...] pillows when lying down. documented in this encounterOhiohealth Riverside [facility] Hospital08-24-2022 History of Present illness Narrative* Kera [...] FOOT: Within normal limits. No acute findings. Sheep Shearer: SILVIANO Transcribe Date/Time: Feb 20 2022 7:11P [...] illness Kera Joseph APRN.MERLIN documented in this encounterOhiohealth Riverside [facility]08-03-2022 Miscellaneous Notes* Telephone Encounter - Estrellita [...] 03/20/2020 Jo-Ann Carreon LPN documented in this encounterOhiohealth Riverside [facility] Hospital07-08-2022 Miscellaneous Notes* Telephone Encounter - Antonio [...] 03/20/2020 Eden Mcgee RN [facility] Misc[facility] Notes* Telephone Encounter - Hemalatha [...] 03/20/2020 Jo-Ann Carreon LPN documented in this encounterOhio[facility] Miscellaneous Notes* Telephone Encounter - Kishor [...] 03/20/2020 Cherryle Oly RN documented in this encounterOhio[facility] Miscellaneous Notes* Telephone Encounter - Sp [...] review. Antonio Smalls M.D. documented in this encounterOhio[facility] Miscellaneous Notes* Telephone Encounter - Antonio [...] 03/20/2020 Jo-Ann Carreon LPN documented in this encounterOhio[facility] History of Past illness Narrative* Problem Noted Date Resolved Date Delayed immunizations 11/19/2012 01/23/2016 Viral warts, unspecified 06/25/2008 012 documented as of this encounter (statuses as of 10/09/2021) [facility] Narrative* Problem Noted Date Resolved Date Delayed immunizations 11/19/2012 01/23/2016 Viral warts, unspecified 06/25/2008 012 documented as of this encounter (statuses as of 10/11/2021) [facility] Narrative* Problem Noted Date Resolved Date Delayed immunizations 11/19/2012 01/23/2016 Viral warts, unspecified 06/25/2008 012 documented as of this encounter (statuses as of 11/07/2021) [facility]arrative* Problem Noted Date Resolved Date Delayed immunizations 11/19/2012 01/23/2016 Viral warts, unspecified 06/25/2008 012 documented as of this encounter (statuses as of 12/07/2021) [facility]arrative* Problem Noted Date Resolved Date Delayed immunizations 11/19/2012 01/23/2016 Viral warts, unspecified 06/25/2008 012 documented as of this encounter (statuses as of 01/04/2022) [facility]arrative* Problem Noted Date Resolved Date Delayed immunizations 11/19/2012 01/23/2016 Viral warts, unspecified 06/25/2008 012 documented as of this encounter (statuses as of 01/31/2022) [facility]ative* Problem Noted Date Resolved Date Delayed immunizations 11/19/2012 01/23/2016 Viral warts, unspecified 06/25/2008 012 documented as of this encounter (statuses as of 02/20/2022) [facility]ative* Problem Noted Date Resolved Date Delayed immunizations 11/19/2012 01/23/2016 Viral warts, unspecified 06/25/2008 012 documented as of this encounter (statuses as of 02/27/2022) [facility]arrative* Problem Noted Date Resolved Date Delayed immunizations 11/19/2012 01/23/2016 Viral warts, unspecified 06/25/2008 012 documented as of this encounter (statuses as of 03/01/2022) [facility]ative* Problem Noted Date Resolved Date Delayed immunizations 11/19/2012 01/23/2016 Viral warts, unspecified 06/25/2008 012 documented as of this encounter (statuses as of 03/12/2022) [facility]ative* Problem Noted Date Resolved Date Delayed immunizations 11/19/2012 01/23/2016 Viral warts, unspecified 06/25/2008 012 documented as of this encounter (statuses as of 03/13/2022) [facility]* Problem Noted Date Resolved Date Delayed immunizations 11/19/2012 01/23/2016 Viral warts, unspecified 06/25/2008 012 documented as of this encounter (statuses as of 03/29/2022) [facility]arrative* Problem Noted Date Resolved Date Delayed immunizations 11/19/2012 01/23/2016 Viral warts, unspecified 06/25/2008 012 documented as of this encounter (statuses as of 04/04/2022) [address]23-2013 History of Past illness Narrative* Problem Noted Date Resolved Date Delayed immunizations 11/19/2012 01/23/2016 Viral warts, unspecified 06/25/2008 012 documented as of this encounter (statuses as of 04/05/2022) [facility]* Problem Noted Date Resolved Date Delayed immunizations 11/19/2012 01/23/2016 Viral warts, unspecified 06/25/2008 012 documented as of this encounter (statuses as of 04/18/2022) [facility]* Problem Noted Date Resolved Date Delayed immunizations 11/19/2012 01/23/2016 Viral warts, unspecified 06/25/2008 012 documented as of this encounter (statuses as of 04/19/2022) [facility]ative* Problem Noted Date Resolved Date Delayed immunizations 11/19/2012 01/23/2016 Viral warts, unspecified 06/25/2008 012 documented as of this encounter (statuses as of 04/30/2022) [facility]ative* Problem Noted Date Resolved Date Delayed immunizations 11/19/2012 01/23/2016 Viral warts, unspecified 06/25/2008 012 documented as of this encounter (statuses as of 05/09/2022) [facility]ative* Problem Noted Date Resolved Date Delayed immunizations 11/19/2012 01/23/2016 Viral warts, unspecified 06/25/2008 012 documented as of this encounter (statuses as of 05/09/2022) [facility]ative* Problem Noted Date Resolved Date Delayed immunizations 11/19/2012 01/23/2016 Viral warts, unspecified 06/25/2008 012 documented as of this encounter (statuses as of 05/13/2022) [facility]* Problem Noted Date Resolved Date Delayed immunizations 11/19/2012 01/23/2016 Viral warts, unspecified 06/25/2008 012 documented as of this encounter (statuses as of 05/24/2022) [facility]* Problem Noted Date Resolved Date Delayed immunizations 11/19/2012 01/23/2016 Viral warts, unspecified 06/25/2008 012 documented as of this encounter (statuses as of 05/30/2022) [facility]ative* Problem Noted Date Resolved Date Delayed immunizations 11/19/2012 01/23/2016 Viral warts, unspecified 06/25/2008 012 documented as of this encounter (statuses as of 05/31/2022) [facility]* Problem Noted Date Resolved Date Delayed immunizations 11/19/2012 01/23/2016 Viral warts, unspecified 06/25/2008 012 documented as of this encounter (statuses as of 06/03/2022) [facility]* Problem Noted Date Resolved Date Delayed immunizations 11/19/2012 01/23/2016 Viral warts, unspecified 06/25/2008 012 documented as of this encounter (statuses as of 06/06/2022) [facility]* Problem Noted Date Resolved Date Delayed immunizations 11/19/2012 01/23/2016 Viral warts, unspecified 06/25/2008 012 documented as of this encounter (statuses as of 06/07/2022) [facility]* Problem Noted Date Resolved Date Delayed immunizations 11/19/2012 01/23/2016 Viral warts, unspecified 06/25/2008 012 documented as of this encounter (statuses as of 06/11/2022) [facility]* Problem Noted Date Resolved Date Delayed immunizations 11/19/2012 01/23/2016 Viral warts, unspecified 06/25/2008 012 documented as of this encounter (statuses as of 06/11/2022) [facility]ative* Problem Noted Date Resolved Date Delayed immunizations 11/19/2012 01/23/2016 Viral warts, unspecified 06/25/2008 012 documented as of this encounter (statuses as of 06/12/2022) [facility]* Problem Noted Date Resolved Date Delayed immunizations 11/19/2012 01/23/2016 Viral warts, unspecified 06/25/2008 012 documented as of this encounter (statuses as of 06/13/2022) [facility]* Problem Noted Date Resolved Date Delayed immunizations 11/19/2012 01/23/2016 Viral warts, unspecified 06/25/2008 012 documented as of this encounter (statuses as of 07/04/2022) [facility]* Problem Noted Date Resolved Date Delayed immunizations 11/19/2012 01/23/2016 Viral warts, unspecified 06/25/2008 012 documented as of this encounter (statuses as of 07/04/2022) [facility]* Problem Noted Date Resolved Date Delayed immunizations 11/19/2012 01/23/2016 Viral warts, unspecified 06/25/2008 012 documented as of this encounter (statuses as of 07/05/2022) [facility]* Problem Noted Date Resolved Date Delayed immunizations 11/19/2012 01/23/2016 Viral warts, unspecified 06/25/2008 012 documented as of this encounter (statuses as of 07/06/2022) [facility]* Problem Noted Date Resolved Date Delayed immunizations 11/19/2012 01/23/2016 Viral warts, unspecified 06/25/2008 012 documented as of this encounter (statuses as of 07/08/2022) [facility]* Problem Noted Date Resolved Date Delayed immunizations 11/19/2012 01/23/2016 Viral warts, unspecified 06/25/2008 012 documented as of this encounter (statuses as of 07/09/2022) [facility]* Problem Noted Date Resolved Date Delayed immunizations 11/19/2012 01/23/2016 Viral warts, unspecified 06/25/2008 012 documented as of this encounter (statuses as of 07/09/2022) [facility]* Problem Noted Date Resolved Date Delayed immunizations 11/19/2012 01/23/2016 Viral warts, unspecified 06/25/2008 012 documented as of this encounter (statuses as of 07/18/2022) [facility]* Problem Noted Date Resolved Date Delayed immunizations 11/19/2012 01/23/2016 Viral warts, unspecified 06/25/2008 012 documented as of this encounter (statuses as of 08/06/2022) [facility]* Problem Noted Date Resolved Date Delayed immunizations 11/19/2012 01/23/2016 Viral warts, unspecified 06/25/2008 012 documented as of this encounter (statuses as of 08/07/2022) [facility]* Problem Noted Date Resolved Date Delayed immunizations 11/19/2012 01/23/2016 Viral warts, unspecified 06/25/2008 012 documented as of this encounter (statuses as of 08/09/2022) [facility]* Problem Noted Date Resolved Date Delayed immunizations 11/19/2012 01/23/2016 Viral warts, unspecified 06/25/2008 012 documented as of this encounter (statuses as of 08/15/2022) [facility]* Problem Noted Date Resolved Date Delayed immunizations 11/19/2012 01/23/2016 Viral warts, unspecified 06/25/2008 012 documented as of this encounter (statuses as of 08/23/2022) [facility]* Problem Noted Date Resolved Date Delayed immunizations 11/19/2012 01/23/2016 Viral warts, unspecified 06/25/2008 012 documented as of this encounter (statuses as of 08/27/2022) [facility]* Problem Noted Date Resolved Date Delayed immunizations 11/19/2012 01/23/2016 Viral warts, unspecified 06/25/2008 012 documented as of this encounter (statuses as of 08/29/2022) [facility]* Problem Noted Date Resolved Date Delayed immunizations 11/19/2012 01/23/2016 Viral warts, unspecified 06/25/2008 012 documented as of this encounter (statuses as of 09/02/2022) [facility]ative* Problem Noted Date Resolved Date Delayed immunizations 11/19/2012 01/23/2016 Viral warts, unspecified 06/25/2008 012 documented as of this encounter (statuses as of 09/03/2022) [facility]* Problem Noted Date Resolved Date Delayed immunizations 11/19/2012 01/23/2016 Viral warts, unspecified 06/25/2008 012 documented as of this encounter (statuses as of 09/05/2022) [facility]* Problem Noted Date Resolved Date Delayed immunizations 11/19/2012 01/23/2016 Viral warts, unspecified 06/25/2008 012 documented as of this encounter (statuses as of 09/06/2022) [facility]* Problem Noted Date Resolved Date Delayed immunizations 11/19/2012 01/23/2016 Viral warts, unspecified 06/25/2008 012 documented as of this encounter (statuses as of 09/09/2022) [facility]* Problem Noted Date Resolved Date Delayed immunizations 11/19/2012 01/23/2016 Viral warts, unspecified 06/25/2008 012 documented as of this encounter (statuses as of 09/10/2022) [facility]* Problem Noted Date Resolved Date Delayed immunizations 11/19/2012 01/23/2016 Viral warts, unspecified 06/25/2008 012 documented as of this encounter (statuses as of 09/10/2022) [facility]* Problem Noted Date Resolved Date Delayed immunizations 11/19/2012 01/23/2016 Viral warts, unspecified 06/25/2008 012 documented as of this encounter (statuses as of 09/17/2022) [facility]* Problem Noted Date Resolved Date Delayed immunizations 11/19/2012 01/23/2016 Viral warts, unspecified 06/25/2008 012 documented as of this encounter (statuses as of 09/30/2022) [facility]* Problem Noted Date Resolved Date Delayed immunizations 11/19/2012 01/23/2016 Viral warts, unspecified 06/25/2008 012 documented as of this encounter (statuses as of 10/10/2022) [facility]* Problem Noted Date Resolved Date Delayed immunizations 11/19/2012 01/23/2016 Viral warts, unspecified 06/25/2008 012 documented as of this encounter (statuses as of 10/10/2022) [facility]* Problem Noted Date Resolved Date Delayed immunizations 11/19/2012 01/23/2016 Viral warts, unspecified 06/25/2008 012 documented as of this encounter (statuses as of 10/10/2022) [facility]* Problem Noted Date Resolved Date Delayed immunizations 11/19/2012 01/23/2016 Viral warts, unspecified 06/25/2008 012 documented as of this encounter (statuses as of 10/12/2022) [facility]* Problem Noted Date Resolved Date Delayed immunizations 11/19/2012 01/23/2016 Viral warts, unspecified 06/25/2008 012 documented as of this encounter (statuses as of 10/29/2022) [facility]* Problem Noted Date Resolved Date Delayed immunizations 11/19/2012 01/23/2016 Viral warts, unspecified 06/25/2008 012 documented as of this encounter (statuses as of 11/04/2022) [facility]* Problem Noted Date Resolved Date Delayed immunizations 11/19/2012 01/23/2016 Viral warts, unspecified 06/25/2008 012 documented as of this encounter (statuses as of 11/05/2022) [facility]ative* Problem Noted Date Resolved Date Delayed immunizations 11/19/2012 01/23/2016 Viral warts, unspecified 06/25/2008 012 documented as of this encounter (statuses as of 11/09/2022) [facility]ative* Problem Noted Date Resolved Date Delayed immunizations 11/19/2012 01/23/2016 Viral warts, unspecified 06/25/2008 012 documented as of this encounter (statuses as of 11/12/2022) [facility]* Problem Noted Date Resolved Date Delayed immunizations 11/19/2012 01/23/2016 Viral warts, unspecified 06/25/2008 012 documented as of this encounter (statuses as of 11/29/2022) [facility]ative* Problem Noted Date Resolved Date Delayed immunizations 11/19/2012 01/23/2016 Viral warts, unspecified 06/25/2008 012 documented as of this encounter (statuses as of 12/05/2022) [facility]* Problem Noted Date Resolved Date Delayed immunizations 11/19/2012 01/23/2016 Viral warts, unspecified 06/25/2008 012 documented as of this encounter (statuses as of 12/25/2022) [facility]* Problem Noted Date Resolved Date Delayed immunizations 11/19/2012 01/23/2016 Viral warts, unspecified 06/25/2008 012 documented as of this encounter (statuses as of 12/25/2022) [facility]ative* Problem Noted Date Resolved Date Delayed immunizations 11/19/2012 01/23/2016 Viral warts, unspecified 06/25/2008 012 documented as of this encounter (statuses as of 12/26/2022) [facility]* Problem Noted Date Resolved Date Delayed immunizations 11/19/2012 01/23/2016 Viral warts, unspecified 06/25/2008 012 documented as of this encounter (statuses as of 12/28/2022) [facility]* Problem Noted Date Resolved Date Delayed immunizations 11/19/2012 01/23/2016 Viral warts, unspecified 06/25/2008 012 documented as of this encounter (statuses as of 01/03/2023) [facility]* Problem Noted Date Diagnosed Date Resolved Date Delayed immunizations 11/19/20122015 Viral warts, unspecified 06/25/200803/2012 documented as of this encounter (statuses as of 01/10/2023) [facility]* Problem Noted Date Diagnosed Date Resolved Date Delayed immunizations 11/19/20122015 Viral warts, unspecified 06/25/200803/2012 documented as of this encounter (statuses as of 01/10/2023) [facility]* Problem Noted Date Diagnosed Date Resolved Date Delayed immunizations 11/19/20122015 Viral warts, unspecified 06/25/200803/2012 documented as of this encounter (statuses as of 01/11/2023) [facility]* Problem Noted Date Diagnosed Date Resolved Date Delayed immunizations 11/19/20122015 Viral warts, unspecified 06/25/200803/2012 documented as of this encounter (statuses as of 01/13/2023) [facility]arr[facility]* Problem Noted Date Diagnosed Date Resolved Date Delayed immunizations 11/19/20122015 Viral warts, unspecified 06/25/200803/2012 documented as of this encounter (statuses as of 01/14/2023) [facility]arrative* Problem Noted Date Diagnosed Date Resolved Date Delayed immunizations 11/19/20122015 Viral warts, unspecified 06/25/200803/2012 documented as of this encounter (statuses as of 01/14/2023) [facility]arrative* Problem Noted Date Diagnosed Date Resolved Date Delayed immunizations 11/19/20122015 Viral warts, unspecified 06/25/200803/2012 documented as of this encounter (statuses as of 01/14/2023) [facility]arrative* Problem Noted Date Diagnosed Date Resolved Date Delayed immunizations 11/19/20122015 Viral warts, unspecified 06/25/200803/2012 documented as of this encounter (statuses as of 01/29/2023) [facility]arrative* Problem Noted Date Diagnosed Date Resolved Date Delayed immunizations 11/19/20122015 Viral warts, unspecified 06/25/200803/2012 documented as of this encounter (statuses as of 01/30/2023) [facility]* Problem Noted Date Diagnosed Date Resolved Date Delayed immunizations 11/19/20122015 Viral warts, unspecified 06/25/200803/2012 documented as of this encounter (statuses as of 02/06/2023) [facility]arrative* Problem Noted Date Diagnosed Date Resolved Date Delayed immunizations 11/19/20122015 Viral warts, unspecified 06/25/200803/2012 documented as of this encounter (statuses as of 02/19/2023) [address]23-2013 History of Past illness Narrative* Problem Noted Date Diagnosed Date Resolved Date Delayed immunizations 11/19/20122015 Viral warts, unspecified 06/25/200803/2012 documented as of this encounter (statuses as of 02/25/2023) [facility]* Problem Noted Date Diagnosed Date Resolved Date Delayed immunizations 11/19/20122015 Viral warts, unspecified 06/25/200803/2012 documented as of this encounter (statuses as of 03/12/2023) [facility]arrative* Problem Noted Date Diagnosed Date Resolved Date Delayed immunizations 11/19/20122015 Viral warts, unspecified 06/25/200803/2012 documented as of this encounter (statuses as of 03/12/2023) [facility] Past [facility]arrative* Problem Noted Date Diagnosed Date Resolved Date Delayed immunizations 11/19/20122015 Viral warts, unspecified 06/25/200803/2012 documented as of this encounter (statuses as of 03/18/2023) [facility] Past [facility] Narrative* Problem Noted Date Diagnosed Date Resolved Date Delayed immunizations 11/19/20122015 Viral warts, unspecified 06/25/200803/2012 documented as of this encounter (statuses as of 03/21/2023) [facility]arrative* Problem Noted Date Diagnosed Date Resolved Date Delayed immunizations 11/19/20122015 Viral warts, unspecified 06/25/200803/2012 documented as of this encounter (statuses as of 04/09/2023) [facility] Past [facility]arrative* Problem Noted Date Diagnosed Date Resolved Date Delayed immunizations 11/19/20122015 Viral warts, unspecified 06/25/200803/2012 documented as of this encounter (statuses as of 04/16/2023) [facility] Past illness Narrative* Problem Noted Date Diagnosed Date Resolved Date Delayed immunizations 11/19/20122015 Viral warts, unspecified 06/25/200803/2012 documented as of this encounter (statuses as of 04/22/2023) [facility] History of Past illness Narrative* Problem Noted Date Diagnosed Date Resolved Date Delayed immunizations 11/19/20122015 Viral warts, unspecified 06/25/200803/2012 documented as of this encounter (statuses as of 05/04/2023) [facility] History of Past illness Narrative* Problem Noted Date Diagnosed Date Resolved Date Delayed immunizations 11/19/20122015 Viral warts, unspecified 06/25/200803/2012 documented as of this encounter (statuses as of 05/04/2023) [facility] History of Past illness Narrative* Problem Noted Date Diagnosed Date Resolved Date Delayed immunizations 11/19/20122015 Viral warts, unspecified 06/25/200803/2012 documented as of this encounter (statuses as of 05/04/2023) [facility] History of Past illness Narrative* Problem Noted Date Diagnosed Date Resolved Date Delayed immunizations 11/19/20122015 Viral warts, unspecified 06/25/200803/2012 documented as of this encounter (statuses as of 05/14/2023) [facility] History of Past illness Narrative* Problem Noted Date Diagnosed Date Resolved Date Delayed immunizations 11/19/20122015 Viral warts, unspecified 06/25/200803/2012 documented as of this encounter (statuses as of 05/15/2023) [facility] History of Past illness Narrative* Problem Noted Date Diagnosed Date Resolved Date Delayed immunizations 11/19/20122015 Viral warts, unspecified 06/25/200803/2012 documented as of this encounter (statuses as of 05/20/2023) [facility] History of Past illness Narrative* Problem Noted Date Diagnosed Date Resolved Date Delayed immunizations 11/19/20122015 Viral warts, unspecified 06/25/200803/2012 documented as of this encounter (statuses as of 07/06/2023) [facility] History of Past illness Narrative* Problem Noted Date Diagnosed Date Resolved Date Delayed immunizations 11/19/20122015 Viral warts, unspecified 06/25/200803/2012 documented as of this encounter (statuses as of 08/11/2023) [facility] History of Past illness Narrative* Problem Noted Date Diagnosed Date Resolved Date Delayed immunizations 11/19/20122015 Viral warts, unspecified 06/25/200803/2012 documented as of this encounter (statuses as of 08/11/2023) [facility] History of Past illness Narrative* Problem Noted Date Diagnosed Date Resolved Date Delayed immunizations 11/19/20122015 Viral warts, unspecified 06/25/200803/2012 documented as of this encounter (statuses as of 08/13/2023) [facility] History of Past illness Narrative* Problem Noted Date Diagnosed Date Resolved Date Delayed immunizations 11/19/20122015 Viral warts, unspecified 06/25/200803/2012 documented as of this encounter (statuses as of 08/18/2023) [facility] History of Past illness Narrative* Problem Noted Date Diagnosed Date Resolved Date Delayed immunizations 11/19/20122015 Viral warts, unspecified 06/25/200803/2012 documented as of this encounter (statuses as of 08/27/2023) [facility] History of Past illness Narrative* Problem Noted Date Diagnosed Date Resolved Date Delayed immunizations 11/19/20122015 Viral warts, unspecified 06/25/200803/2012 documented as of this encounter (statuses as of 09/11/2023) [facility] History of Past illness Narrative* Problem Noted Date Diagnosed Date Resolved Date Delayed immunizations 11/19/20122015 Viral warts, unspecified 06/25/200803/2012 documented as of this encounter (statuses as of 09/30/2023) [facility] History of Past illness Narrative* Problem Noted Date Diagnosed Date Resolved Date Delayed immunizations 11/19/20122015 Viral warts, unspecified 06/25/200803/2012 documented as of this encounter (statuses as of 10/09/2023) [facility] note* Diagnosis Attention deficit hyperactivity disorder (ADHD), combined type [facility]* Diagnosis Abnormal laboratory test- Primary Other abnormal clinical finding [facility]* Diagnosis Attention deficit hyperactivity disorder (ADHD), combined type [facility]* Diagnosis Attention deficit hyperactivity disorder (ADHD), combined type [facility] noteNo assessment information availableWSt. Anthony's Hospital Work Phone: Evaluation note* Diagnosis Attention deficit hyperactivity disorder (ADHD), combined type documented in this encounter [facility] note* Diagnosis Foot pain, right- Primary Pain in limb Acute right ankle pain [facility]* Diagnosis Abnormal urination- Primary Other abnormality of urination Irregular periods Irregular menstrual cycle Acute vaginitis Vaginitis and vulvovaginitis, unspecified [facility]* Diagnosis Urinary tract infection without hematuria, site unspecified- Primary documented in this encounter [facility] note* Diagnosis Attention deficit hyperactivity disorder (ADHD), combined type- Primary Migraine without status migrainosus, not intractable, unspecified migraine type Anxiety Anxiety state, unspecified Pain in right foot Pain in limb Encounter for immunization Need for other specified prophylactic vaccination against single bacterial disease documented in this encounter [facility] note* Diagnosis Skin tag of anus- Primary Residual hemorrhoidal skin tags Irregular menstrual cycle [facility]* Diagnosis Abnormal laboratory test- Primary Other abnormal clinical finding [facility]* Diagnosis Abnormal laboratory test- Primary Other abnormal clinical finding Malaise and fatigue Other malaise and fatigue Diarrhea, unspecified type Abdominal pain, unspecified abdominal location documented [facility] this [facility]* Diagnosis Attention deficit hyperactivity disorder (ADHD), combined type documented [facility]* Diagnosis Fatty liver- Primary Other chronic nonalcoholic liver disease Abnormal laboratory test Other abnormal clinical finding Malaise and fatigue Other malaise and fatigue Diarrhea, unspecified type Abdominal pain, unspecified abdominal location Nausea Nausea alone documented in this encounter [facility] note* Diagnosis Irregular menstrual cycle- Primary [facility]* Diagnosis Attention deficit hyperactivity disorder (ADHD), combined type documented in this encounter [facility] note* Diagnosis Attention deficit hyperactivity disorder (ADHD), combined type documented in this encounter [facility] note* Diagnosis Fatty liver- Primary Other chronic nonalcoholic liver disease Elevated LFTs Other abnormal blood chemistry documented in this encounter [facility] note* Diagnosis Chronic rhinitis- Primary Dysfunction of both eustachian tubes Dysfunction of Eustachian tube Chronic cough Cough Shortness of breath [facility]* Diagnosis Fatty liver- Primary Other chronic nonalcoholic liver disease Elevated LFTs Other abnormal blood chemistry [facility]* Diagnosis Attention deficit hyperactivity disorder (ADHD), combined type documented [facility]* Diagnosis Attention deficit hyperactivity disorder (ADHD), combined type [facility]* Diagnosis Sinobronchitis- Primary Unspecified sinusitis (chronic) [facility] Diagnosis Fatty liver- Primary Other chronic nonalcoholic liver disease Malaise and fatigue Other malaise and fatigue [facility]* Diagnosis Vitamin D deficiency- Primary Unspecified vitamin D deficiency [facility]* Diagnosis Attention deficit hyperactivity disorder (ADHD), combined type [facility]* Diagnosis Leukocytosis, unspecified type- Primary Thrombocytosis Essential thrombocythemia documented in this encounter [facility] note* Diagnosis Sore throat- Primary Acute pharyngitis [facility]* Diagnosis Suspected sleep apnea- Primary Malaise and fatigue Other malaise and fatigue Snoring Other dyspnea and respiratory abnormality Chronic fatigue Other malaise and fatigue [facility]* Diagnosis Obesity, Class III, BMI >= 40- Primary Morbid obesity Precordial pain documented [facility]* Diagnosis Attention deficit hyperactivity disorder (ADHD), combined type [facility]* Diagnosis Migraine without status migrainosus, not [...] 40 Morbid obesity [facility]* Diagnosis URI, acute- Primary Acute upper respiratory infections of unspecified site Acute otitis media, left Unspecified otitis media [facility]* Diagnosis SOBOE (shortness of breath on exertion) Shortness of breath [facility]* Diagnosis ESTEBAN (obstructive sleep apnea)- Primary Obstructive sleep apnea (adult) (pediatric) [facility]* Diagnosis Attention deficit hyperactivity disorder (ADHD), combined type [facility]* Diagnosis Sore throat- Primary Acute pharyngitis Other acute nonsuppurative otitis media of right ear, recurrence not specified [facility]* Diagnosis Attention deficit hyperactivity disorder (ADHD), combined type [facility]* Diagnosis Vaginal discharge- Primary Leukorrhea, not specified as infective [facility]* Diagnosis ESTEBAN (obstructive sleep apnea)- Primary Obstructive sleep apnea (adult) (pediatric) [facility]* Diagnosis Attention deficit hyperactivity disorder (ADHD), combined type [facility]* Diagnosis Leukocytosis, unspecified type- Primary Thrombocytosis Essential thrombocythemia [facility]* Diagnosis Attention deficit hyperactivity disorder (ADHD), combined type- Primary Migraine without status migrainosus, not intractable, unspecified migraine type Heartburn [facility]* Diagnosis ESTEBAN (obstructive sleep apnea)- Primary Obstructive sleep apnea (adult) (pediatric) ESTEBAN on CPAP Obstructive sleep apnea (adult) (pediatric) [facility]* Diagnosis Attention deficit hyperactivity disorder (ADHD), combined type [facility]* Diagnosis Protracted URI- Primary Acute upper respiratory infections of unspecified site Non-recurrent acute serous otitis media of right ear [facility]* Diagnosis Secondary amenorrhea- Primary Absence of menstruation Missed menses Absence of menstruation documented in this encounter [facility] note* Diagnosis Attention deficit hyperactivity disorder (ADHD), combined type documented in this encounter [facility] note* Diagnosis Fatty liver- Primary Other chronic nonalcoholic liver disease Elevated LFTs Other abnormal blood chemistry Intermittent diarrhea [facility]* Diagnosis Fatty liver Other chronic nonalcoholic liver disease Elevated LFTs Other abnormal blood chemistry documented in this encounter [facility] note* Diagnosis Secondary amenorrhea Absence of menstruation documented in this [facility]* Diagnosis Abnormal laboratory test Other abnormal clinical finding Malaise and fatigue Other malaise and fatigue Diarrhea, unspecified type Abdominal pain, unspecified abdominal location documented in this encounter [facility] note* Diagnosis Vaginal odor- Primary Unspecified symptom associated with female genital organs documented in this encounter [facility] note* Diagnosis Attention deficit hyperactivity disorder (ADHD), combined type documented in this encounter [facility] note* Diagnosis Attention deficit hyperactivity disorder (ADHD), combined type- Primary Neck pain Cervicalgia ESTEBAN on CPAP Obstructive sleep apnea (adult) (pediatric) Class 3 severe obesity due to excess calories with body mass index (BMI) of 40.0 to 44.9 in adult, unspecified whether serious comorbidity present ([facility]) Moderate episode of recurrent major depressive disorder ([facility]) Encounter for immunization Need for other specified prophylactic vaccination against single bacterial disease documented in this encounter [facility] note* Diagnosis Vaginal itching- Primary Pruritus of genital organs Vaginal odor Unspecified symptom associated with female genital organs Dysuria documented in this encounter [facility] note* Diagnosis Contusion of right hand, subsequent encounter- Primary [facility]* Diagnosis Exposure to SARS-associated coronavirus- Primary [facility]* Diagnosis Leukocytosis, unspecified type- Primary Thrombocytosis Essential thrombocythemia [facility]* Diagnosis Vaginal discharge- Primary Leukorrhea, not specified as infective Vaginal itching Pruritus of genital organs documented [facility]* Diagnosis Migraine without status migrainosus, not intractable, unspecified migraine type- Primary Attention deficit hyperactivity disorder (ADHD), combined type Vaping nicotine dependence, non-tobacco product Recurrent major depressive disorder, in partial remission ([facility]) [facility]* Diagnosis Sore throat- Primary Acute pharyngitis Bacterial sinusitis Unspecified sinusitis (chronic) [facility]* Diagnosis NAFLD (nonalcoholic fatty liver disease)- Primary Other chronic nonalcoholic liver disease Diarrhea, unspecified type Gastroesophageal reflux disease, unspecified whether esophagitis present [facility] Diagnosis NAFLD (nonalcoholic fatty liver disease)- Primary Other chronic nonalcoholic liver disease NAFLD (nonalcoholic fatty liver disease) Other chronic nonalcoholic liver disease Autoantibody titer positive Other and unspecified nonspecific immunological findings [facility]* Diagnosis Attention deficit hyperactivity disorder (ADHD), combined type NAFLD (nonalcoholic fatty liver disease) Other chronic nonalcoholic liver disease Autoantibody titer positive Other and unspecified nonspecific immunological findings [facility]* Diagnosis Right upper quadrant abdominal pain- Primary Abdominal pain, right upper quadrant [facility]* Diagnosis Attention deficit hyperactivity disorder (ADHD), combined type [facility]* Diagnosis Vaginal itching- Primary Pruritus of genital organs [facility]* Diagnosis Migraine without status migrainosus, not intractable, unspecified migraine type- Primary Attention deficit hyperactivity disorder (ADHD), combined type Impacted cerumen of right ear Impacted cerumen Acute otitis externa of right ear, unspecified type [facility]* Diagnosis Attention deficit hyperactivity disorder (ADHD), combined type [facility]* Diagnosis Right hand pain- Primary Pain in limb Right hand pain Pain in limb [facility]* Diagnosis Foot injury, left, initial encounter- Primary Foot injury, left, initial encounter [facility]* Diagnosis Nausea- Primary Nausea alone Acid indigestion Dyspepsia and other specified disorders of function of stomach [facility]* Diagnosis Attention deficit hyperactivity disorder (ADHD), combined type [facility]* Diagnosis Amenorrhea Absence of menstruation [facility]* Diagnosis Type 2 diabetes mellitus without complication, without long-term current use of insulin (HCC)- Primary Fatty liver Other chronic nonalcoholic liver disease Obesity, Class III, BMI >= 40 Morbid obesity Adenomyosis Endometriosis of uterus [facility]* Diagnosis Amenorrhea- Primary Absence of menstruation Medication management Encounter for long-term (current) use of other medications Amenorrhea Absence of menstruation [facility]* Diagnosis Vaginal discharge- Primary Leukorrhea, not specified as infective documented in this encounter [facility] note* Diagnosis Type 2 diabetes mellitus without complication, without long-term current use of insulin (HCC) Fatty liver Other chronic nonalcoholic liver disease Obesity, Class III, BMI >= 40 Morbid obesity [facility]* Diagnosis Attention deficit hyperactivity disorder (ADHD), combined type [facility]* Diagnosis Vaginal yeast infection- Primary Candidiasis of vulva and vagina [facility]* Diagnosis Rhinosinusitis- Primary Unspecified sinusitis (chronic) [facility]* Diagnosis Right hand pain Pain in limb [facility]* Diagnosis Vaginal yeast infection- Primary Candidiasis of vulva and vagina [facility]* Diagnosis Migraine without status migrainosus, not intractable, unspecified migraine type [facility]* Diagnosis Foot injury, left, initial encounter [facility]* Diagnosis Right hand pain Pain in limb [facility]* Diagnosis Attention deficit hyperactivity disorder (ADHD), combined type [facility]* Diagnosis Type 2 diabetes mellitus without complication, without long-term current use of insulin (HCC)- Primary Fatty liver Other chronic nonalcoholic liver disease Obesity, Class III, BMI >= 40 Morbid obesity Vapes nicotine containing substance Encounter for immunization Need for other specified prophylactic vaccination against single bacterial disease Encounter for therapeutic drug monitoring Screening for lipid disorders documented in this encounter [facility] note* Diagnosis Acute right ankle pain Foot pain, right Pain in limb [facility]* Diagnosis Injury of toe on right foot, initial encounter [facility]* Diagnosis Chronic vaginitis- Primary Vaginitis and vulvovaginitis, unspecified [facility]* Diagnosis Attention deficit hyperactivity disorder (ADHD), combined type [facility]* Diagnosis Type 2 diabetes mellitus without complication, without long-term current use of insulin (HCC)- Primary Urinary frequency Migraine without status migrainosus, not intractable, unspecified migraine type Vaginal yeast infection Candidiasis of vulva and vagina [facility]* Diagnosis Vaginal discharge- Primary Leukorrhea, not specified as infective Vaginal itching Pruritus of genital organs Vulvar itching Pruritus of genital organs [facility] Diagnosis Chronic infection- Primary Unspecified infectious and parasitic diseases Vaginal yeast infection Candidiasis of vulva and vagina [facility] Diagnosis Attention deficit hyperactivity disorder (ADHD), combined type [facility] Diagnosis Acute non-recurrent frontal sinusitis- Primary [facility] Diagnosis Attention deficit hyperactivity disorder (ADHD), combined type [facility] Diagnosis Acid indigestion Dyspepsia and other specified disorders of function of stomach [facility] Diagnosis Attention deficit hyperactivity disorder (ADHD), combined type- Primary Myalgia Mylagia and myositis, unspecified Elevated LFTs Other abnormal blood chemistry Nausea and vomiting, unspecified vomiting type Gastroesophageal reflux disease, unspecified whether esophagitis present Migraine without status migrainosus, not intractable, unspecified migraine type Controlled type 2 diabetes mellitus without complication, without long-term current use of insulin ([facility]) Eczema, unspecified type Encounter for immunization Need for other specified prophylactic vaccination against single bacterial disease Encounter for long-term current use of medication [facility] Diagnosis Acute recurrent sinusitis, unspecified location- Primary [facility] Diagnosis Marfan's syndrome- Primary PVC (premature ventricular contraction) Other premature beats [facility]* Diagnosis Type 2 diabetes mellitus without complication, without long-term current use of insulin (HCC) Fatty liver Other chronic nonalcoholic liver disease Obesity, Class III, BMI >= 40 Morbid obesity [facility] Diagnosis Attention deficit hyperactivity disorder (ADHD), combined type [facility] Diagnosis Vulvar irritation- Primary Other specified noninflammatory disorder of vulva and perineum [facility] Diagnosis Vertigo- Primary Dizziness and giddiness [...] unspecified migraine type [facility] Diagnosis Numbness and tingling- Primary Disturbance of skin sensation [facility] Diagnosis Vulvar itching- Primary Pruritus of genital organs Missed menses Absence of menstruation [facility] Diagnosis Leukocytosis, unspecified type- Primary [facility] Diagnosis Generalized anxiety disorder with panic attacks- Primary Lightheaded Dizziness and giddiness Dizziness Dizziness and giddiness Numbness and tingling Disturbance of skin sensation Palpitations Type 2 diabetes mellitus without complication, without long-term current use of insulin (HCC) [facility] Diagnosis Generalized anxiety disorder with panic attacks- Primary Panic attacks Panic disorder without agoraphobia Palpitations Insomnia due to mental disorder Post-traumatic stress disorder Posttraumatic stress disorder [facility] Diagnosis Generalized anxiety disorder with panic attacks- Primary Panic attacks Panic disorder without agoraphobia Type 2 diabetes mellitus without complication, without long-term current use of insulin (HCC) Fatty liver Other chronic nonalcoholic liver disease Obesity, Class III, BMI >= 40 Morbid obesity Migraine without status migrainosus, not intractable, unspecified migraine type Attention deficit hyperactivity disorder (ADHD), combined type [facility] Diagnosis Acute bronchitis, unspecified organism- Primary Lightheaded Dizziness and giddiness Dizziness Dizziness and giddiness Moderate episode of recurrent major depressive disorder (HCC) Generalized anxiety disorder with panic attacks Dandruff Other seborrheic dermatitis Seborrheic dermatitis Seborrheic dermatitis, unspecified Attention deficit hyperactivity disorder (ADHD), combined type [facility] Diagnosis Generalized anxiety disorder with [...] unspecified migraine type [facility] Diagnosis Generalized anxiety disorder with panic attacks- Primary Panic attacks Panic disorder without agoraphobia Palpitations Lightheaded Dizziness and giddiness Attention deficit hyperactivity disorder (ADHD), combined type Obstructive sleep apnea syndrome Obstructive sleep apnea (adult) (pediatric) Type 2 diabetes mellitus without complication, without long-term current use of insulin (HCC) Fatty liver Other chronic nonalcoholic liver disease [facility] Diagnosis Attention deficit hyperactivity disorder (ADHD), combined type [facility] Diagnosis Type 2 diabetes mellitus without complication, without long-term current use of insulin (HCC) [facility] Diagnosis Migraine without status migrainosus, not intractable, unspecified migraine type [facility] Additional Instructions Ibuprofen as needed for pain. May add Tylenol to this if you need to. May also ice the affected area if you need to and elevate if swollen.[facility] Work Phone: Hospital Discharge instructions Additional Instructions Please return to the ER should you have any further concerns or worsening of symptomsWSt[facility] Work Phone: Hospital Discharge instructions Additional [...] care physician for further outpatient evaluation and management.[facility] Work Phone: Hospital Discharge instructions Additional Instructions CT brain negative. EKG normal. Thyroid studies electrolytes normal. Labs with leukocytosis white count of 16.7. No clinical signs of infection. Follow-up with Dr. Saez hematology for further workup if needed. With paresthesias recurrent nonspecific follow-up with neurology, Dr. Bacon for further workup if needed.[facility] Work Phone: Hospital Discharge instructions Additional Instructions EKG is normal labs including D-dimer normal. Urine negative. You are set up with 48-hour Holter monitor. Avoid caffeine products. Follow-up with your cardiology team.[facility] Work Phone: Reason for referral (narrative)* Diagnostic Procedure Only (Urgent) - Closed Specialty Diagnoses / Procedures Referred By Contac t Referred To Contact XR IMAGING Diagnoses Foot pain, right Procedures XR FOOT GENERAL 3V AP/LAT/OBL RIGHT RADEX FOOT COMPLETE MINIMUM 3 VIEWS Kera Joseph APRN.JAMB CUTTER [address] [place] [address] Xr Imaging Referral ID Status Reason Start Date Expiration Date V isits Requested Visits Authorized [id number] Closed Auto-Generate d Referral 02/20/2022 03/22/2023 1 1 * Diagnostic Procedure Only (Urgent) - Closed Specialty Diagnoses / Procedures Referred By Contac t Referred To Contact XR IMAGING Diagnoses Acute right ankle pain Procedures XR ANKLE GENERAL 3V AP/LAT/OBL RIGHT RADEX ANKLE COMPLETE MINIMUM 3 VIEWS Kera Joseph APRN.JAMB CUTTER [address] [place] [address] Xr Imaging Referral ID Status Reason Start Date Expiration Date V isits Requested Visits Authorized [id number] Closed Auto-Generate d Referral 02/20/2022 03/22/2023 1 1 [facility] for referral (narrative)* Diagnostic Procedure Only (Routine) - Pending Review Specialty Diagnoses / Procedures Referred By Contac t Referred To Contact MOLECULAR & FUNCTIONAL IMAGING Diagnoses Nausea Procedures NM HEPATOBILIARY W EF AND/OR RX HEPATOBIL SYST IMAG INC GB W/PHARMA INTERVENJ Annia Hogan APRN.JAMB CUTTER [address] [place] [address] Molecular & Functional Imaging [address] [id number] Referral ID Status Reason Start Date Expiration Date Visits Requested Visits Authorized [id number] Pending Review Auto-Generat ed Referral 05/07/2022 06/06/2023 1 1 * Outpatient Procedure (Routine) - Pending Review Specialty Diagnoses / Procedures Referred By Contac t Referred To Contact [facility] Diagnoses Abnormal laboratory test Fatty liver Procedures DDI VIBRATION CONTROLLED TRANSIENT ELASTOGRAPHY (VCTE) LIVER ELASTOGRAPHY W/O IMAG W/I&R Annia Hogan APRN.JAMB CUTTER [address] [place] [address] [facility] [place] [address] [place], [place] [id number] Referral ID Status Reason Start Date Expiration Date Visits Requested Visits Authorized [id number] Pending Review Auto-Generat ed Referral 05/07/2022 05/07/2023 1 1 [facility] for referral (narrative)* Outpatient Procedure (Routine) - Authorized Specialty Diagnoses / Procedures Referred By Contac t Referred To Contact [facility] Diagnoses SOBOE (shortness of breath on exertion) Procedures SPIROMETRY WITH DILATOR IF OBSTRUCTED BRNCDILAT RSPSE SPMTRY PRE&POST-BRNCDILAT ADMN 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 APRN.VICE PRESIDENT & GENERAL MANAGER [employer] [address] [place] [address] [facility] [place] [address] [place], [place] [id number] Referral ID Status Reason Start Date Expiration Date Visits Requested Visits Authorized [id number] Authorized Auto-Generat ed Referral 10/28/2022 11/27/2023 1 1 [facility] for referral (narrative)* Diagnostic Procedure Only (Routine) - Authorized Specialty Diagnoses / Procedures Referred By Contac t Referred To Contact US IMAGING Diagnoses Secondary amenorrhea Procedures US FEMALE PELVIS TRANSVAG US TRANSVAGINAL Kelly Nunez APRN.CNM [address] [place] [address] [place] [address] Referral ID Status Reason Start Date Expiration Date Visits Requested Visits Authorized [id number] Authorized Auto-Generat ed Referral 3 05/08/2024 1 1 [facility] for referral (narrative)* Diagnostic Procedure Only (Routine) - Authorized Specialty Diagnoses / Procedures Referred By Contac t Referred To Contact US IMAGING Diagnoses Fatty liver Elevated LFTs Procedures US ABD RIGHT UPPER QUADRANT US ABDOMINAL REAL TIME W/IMAGE LIMITED Zuleika Avalos PA-C [address] [facility] [place] [address] [place] [address] Referral ID Status Reason Start Date Expiration Date Visits Requested Visits Authorized [id number] Authorized Auto-Generat ed Referral 3 05/21/2024 1 1 [facility] for referral (narrative)* Diagnostic Procedure Only (Routine) - Closed Specialty Diagnoses / Procedures Referred By Contac t Referred To Contact US IMAGING Diagnoses Fatty liver Elevated LFTs Procedures US ABD RIGHT UPPER QUADRANT US ABDOMINAL REAL TIME W/IMAGE LIMITED Zuleika Avalos PA-C [address] [facility] [place] [place] [address] [place] [address] Referral ID Status Reason Start Date Expiration Date V isits Requested Visits Authorized [id number] Closed Auto-Generate d Referral 04/22/2023 05/21/2024 1 1 T [facility] for referral (narrative)* Diagnostic Procedure Only (Routine) - Closed Specialty Diagnoses / Procedures Referred By Contac t Referred To Contact US IMAGING Diagnoses Secondary amenorrhea Procedures US FEMALE PELVIS TRANSVAG US TRANSVAGINAL Kelly Nunez APRN.CNM [address] [place] [address] [place] [address] Referral ID Status Reason Start Date Expiration Date V isits Requested Visits Authorized [id number] Closed Auto-Generate d Referral 04/09/2023 05/08/2024 1 1 [facility] for referral (narrative)* Diagnostic Procedure Only (Routine) - Closed Specialty Diagnoses / Procedures Referred By Contac t Referred To Contact US IMAGING Diagnoses Abnormal laboratory test Malaise and fatigue Diarrhea, unspecified type Abdominal pain, unspecified abdominal location Procedures US ABD RT UPPER QUADRANT US ABDOMINAL REAL TIME W/IMAGE LIMITED Antonio Smalls MD [address] [place] [address] [place] [address] Referral ID Status Reason Start Date Expiration Date V isits Requested Visits Authorized [id number] Closed Auto-Generate d Referral 04/18/2022 05/18/2023 1 1 T [facility] for referral (narrative)* Diagnostic Procedure Only (Urgent) - Closed Specialty Diagnoses / Procedures Referred By Contac t Referred To Contact XR IMAGING Diagnoses Foot injury, left, initial encounter Procedures XR FOOT GENERAL 3V AP/LAT/OBL LEFT RADEX FOOT COMPLETE MINIMUM 3 VIEWS Kera Joseph, BELL MAKER.JAMB CUTTER [address] [place] [address] [place] [address] Referral ID Status Reason Start Date Expiration Date V isits Requested Visits Authorized [id number] Closed Auto-Generate d Referral 12/22/2023 01/20/2025 1 1 [facility] for referral (narrative)* Diagnostic Procedure Only (Routine) - Closed Specialty Diagnoses / Procedures Referred By Contac t Referred To Contact [facility] Diagnoses Amenorrhea Procedures PELVIC US WHI US PELVIC NONOBSTETRIC REAL-TIME IMAGE COMPLETE Pat Ferrer APRN.JAMB CUTTER [address] [place] [address] [facility] [address] [place] [address] Referral ID Status Reason Start Date Expiration Date V isits Requested Visits Authorized [id number] Closed Auto-Generate d Referral 01/22/2024 01/21/2025 1 1 [facility] for referral (narrative)* Diagnostic Procedure Only (Urgent) - Closed Specialty Diagnoses / Procedures Referred By Contac t Referred To Contact XR IMAGING Diagnoses Foot injury, left, initial encounter Procedures XR FOOT GENERAL 3V AP/LAT/OBL LEFT RADEX FOOT COMPLETE MINIMUM 3 VIEWS Kera Joseph APRN.JAMB CUTTER [address] [place] [address] [place] [address] Referral ID Status Reason Start Date Expiration Date V isits Requested Visits Authorized [id number] Closed Auto-Generate d Referral 12/22/2023 01/20/2025 1 1 [facility] for referral (narrative)* Diagnostic Procedure Only (Urgent) - Closed Specialty Diagnoses / Procedures Referred By Contac t Referred To Contact XR IMAGING Diagnoses Right hand pain Procedures XR HAND GENERAL 3V PA/LAT/OBL RIGHT RADEX HAND MINIMUM 3 VIEWS Terrence Hill APRN.JAMB CUTTER [address] [place] [address] [place] [address] Referral ID Status Reason Start Date Expiration Date V isits Requested Visits Authorized [id number] Closed Auto-Generate d Referral 12/17/2023 01/15/2025 1 1 [facility] for referral (narrative)* Diagnostic Procedure Only (Urgent) - Closed Specialty Diagnoses / Procedures Referred By Contac t Referred To Contact XR IMAGING Diagnoses Foot pain, right Procedures XR FOOT GENERAL 3V AP/LAT/OBL RIGHT RADEX FOOT COMPLETE MINIMUM 3 VIEWS Kera Joseph APRN.JAMB CUTTER [address] [place] [address] [place] [address] Referral ID Status Reason Start Date Expiration Date V isits Requested Visits Authorized [id number] Closed Auto-Generate d Referral 02/20/2022 03/22/2023 1 1 * Diagnostic Procedure Only (Urgent) - Closed Specialty Diagnoses / Procedures Referred By Contac t Referred To Contact XR IMAGING Diagnoses Acute right ankle pain Procedures XR ANKLE GENERAL 3V AP/LAT/OBL RIGHT RADEX ANKLE COMPLETE MINIMUM 3 VIEWS Kera Joseph APRN.JAMB CUTTER [address] [place] [address] [place] [address] Referral ID Status Reason Start Date Expiration Date V isits Requested Visits Authorized [id number] Closed Auto-Generate d Referral 02/20/2022 03/22/2023 1 1 [facility] for referral (narrative)* Diagnostic Procedure Only (Routine) - Closed Specialty Diagnoses / Procedures Referred By Contac t Referred To Contact XR IMAGING Diagnoses Injury of toe on right foot, initial encounter Procedures XR TOE AP/LAT/OBL RIGHT X-RAY TOE(S) Antonio Smalls MD [address] [place] [address] [place] [address] Referral ID Status Reason Start Date Expiration Date V isits Requested Visits Authorized [id number] Closed Auto-Generate d Referral 07/12/2021 08/11/2022 1 1 [facility] for referral (narrative)No reason for referral information availableWSt. [facility]'s Hospital Work Phone: Reason for visit Narrative* Diagnostic Procedure Only (Routine) - Closed Specialty Diagnoses / Procedures Referred By Contac t Referred To Contact [facility] Diagnoses Amenorrhea Procedures PELVIC US WHI US PELVIC NONOBSTETRIC REAL-TIME IMAGE COMPLETE Pat Ferrer, BELL MAKER.JAMB CUTTER [address] [place] [address] [facility] [address] [place] [address] Referral ID Status Reason Start Date Expiration Date V isits Requested Visits Authorized [id number] Closed Auto-Generate d Referral 01/22/2024 01/21/2025 1 1 [facility] for visit Narrative* Diagnostic Procedure Only (Urgent) - Closed Specialty Diagnoses / Procedures Referred By Contac t Referred To Contact XR IMAGING Diagnoses Foot injury, left, initial encounter Procedures XR FOOT GENERAL 3V AP/LAT/OBL LEFT RADEX FOOT COMPLETE MINIMUM 3 VIEWS Kera Joseph, BELL MAKER.JAMB CUTTER [address] [place] [address] [place] [address] Referral ID Status Reason Start Date Expiration Date V isits Requested Visits Authorized [id number] Closed Auto-Generate d Referral 12/22/2023 01/20/2025 1 1 [facility] for visit Narrative* Diagnostic Procedure Only (Urgent) - Closed Specialty Diagnoses / Procedures Referred By Contac t Referred To Contact XR IMAGING Diagnoses Right hand pain Procedures XR HAND GENERAL 3V PA/LAT/OBL RIGHT RADEX HAND MINIMUM 3 VIEWS Terrence Hill, BELL MAKER.JAMB CUTTER [address] [place] [address] [place] [address] Referral ID Status Reason Start Date Expiration Date V isits Requested Visits Authorized [id number] Closed Auto-Generate d Referral 12/17/2023 01/15/2025 1 1 [facility] for visit Narrative* Diagnostic Procedure Only (Urgent) - Closed Specialty Diagnoses / Procedures Referred By Contac t Referred To Contact XR IMAGING Diagnoses Foot pain, right Procedures XR FOOT GENERAL 3V AP/LAT/OBL RIGHT RADEX FOOT COMPLETE MINIMUM 3 VIEWS Kera Joseph, HARLAN.JAMB CUTTER [address] [place] [address] [place] [address] Referral ID Status Reason Start Date Expiration Date V isits Requested Visits Authorized [id number] Closed Auto-Generate d Referral 02/20/2022 03/22/2023 1 1 [facility] for visit Narrative* Diagnostic Procedure Only (Routine) - Closed Specialty Diagnoses / Procedures Referred By Contac t Referred To Contact XR IMAGING Diagnoses Injury of toe on right foot, initial encounter Procedures XR TOE AP/LAT/OBL RIGHT X-RAY TOE(S) Antonio Smalls MD [address] [place] [address] [place] [address] Referral ID Status Reason Start Date Expiration Date V isits Requested Visits Authorized [id number] Closed Auto-Generate d Referral 07/12/2021 08/11/2022 1 1 [facility] Summary Purpose Family History No Family History Records FoundNo Family History Records FoundNo Family History Records FoundNo Family History Records FoundNo Family History Records FoundNo Family History Records FoundNo Family History Records FoundNo Family History Records Found Advance Directives No Advanced Directives Records Found Advance Directive Response Recorded Date/ Time Living Will No January 26, 2022 2:02am Power of General Manager In Training No January 26 2:02am Advance Directive Response Recorded Date/ Time Living Will No April 11 12:51am Power of General Manager In Training No April 11, 2022 12:51am Advance Directive Response Recorded Date/ Time Living Will No September 29, 2024 8:22pm Do you have a Healthcare Power of General Manager In Training? No September 29, 2024 8:22pm Advance Directive Response Recorded Date/ Time Living Will No October 06, 2024 8:12pm Do you have a Healthcare Power of General Manager In Training? No October 06, 2024 8:12pm Living Will No September 29, 2024 8:22pm Do you have a Healthcare Power of General Manager In Training? No September 29, 2024 8:22pm Advance Directive Response Recorded Date/ Time Living Will No October 06, 2024 8:12pm Do you have a Healthcare Power of General Manager In Training? No October 06, 2024 8:12pm Living Will No September 29, 2024 8:22pm Do you have a Healthcare Power of General Manager In Training? No September 29, 2024 8:22pm Do you have a Healthcare Power of General Manager In Training? No October 25, 2024 12:41am Advance Directive Response Recorded Date/ Time Living Will No October 06, 2024 8:12pm Do you have a Healthcare Power of General Manager In Training? No October 06, 2024 8:12pm Do you have a Healthcare Power of General Manager In Training? No October 28, 2024 11:34pm Do you have a Healthcare Power of General Manager In Training? No December 02, 2024 9:12pm Living Will No September 29, 2024 8:22pm Do you have a Healthcare Power of General Manager In Training? No September 29, 2024 8:22pm Do you have a Healthcare Power of General Manager In Training? No October 25, 2024 12:41am Reason for Referral Specialty Diagnoses / Procedures Referred By Contac t Referred To Contact Diagnoses Attention deficit hyperactivity disorder (ADHD), combined type Antonio Smalls MD [address] [place] [address] Referral ID Status Reason Start Date Expiration Date Visits Re quested Visits Authorized [id number] Closed 1 1 Specialty Diagnoses / Procedures Referred By Contac t Referred To Contact Diagnoses Attention deficit hyperactivity disorder (ADHD), combined type Kishor Abdul MD [address] [place] [address] Referral ID Status Reason Start Date Expiration Date Visits Re quested Visits Authorized [id number] Closed 1 1 Specialty Diagnoses / Procedures Referred By Contac t Referred To Contact Diagnoses Attention deficit hyperactivity disorder (ADHD), combined type Hemalatha Dejesus MD [address] [place] [address] Referral ID Status Reason Start Date Expiration Date Visits Re quested Visits Authorized [id number] Closed 1 1 Specialty Diagnoses / Procedures Referred By Contac t Referred To Contact Diagnoses Attention deficit hyperactivity disorder (ADHD), combined type Estrellita Underwood PA-C [address] [place] [address] Referral ID Status Reason Start Date Expiration Date Visits Re quested Visits Authorized [id number] Closed 1 1 Specialty Diagnoses / Procedures Referred By Contac t Referred To Contact Podiatry Diagnoses Pain in right foot Procedures CONSULT TO PODIATRY OFFICE/OUTPATIENT [facility] 60-74 MINUTES Antonio Smalls MD [address] [place], [place] [id number] Referral ID Status Reason Start Date Expiration Date Visits Requested Visits Authorized [id number] Authorized PCP Requested Referral 03/12/2022 03/12/2023 1 1 Specialty Diagnoses / Procedures Referred By Contac t Referred To Contact Gastroenterology Diagnoses Abnormal laboratory test Malaise and fatigue Diarrhea, unspecified type Abdominal pain, unspecified abdominal location Procedures CONSULT TO GASTROENTEROLOGY OFFICE/OUTPATIENT [facility] 60-[place] [address] [place] [id number] Referral ID Status Reason Start Date Expiration Date Visits Requested Visits Authorized [id number] Authorized PCP Requested Referral 2 04/18/2023 1 1 Specialty Diagnoses / Procedures Referred By Contac t Referred To Contact US IMAGING Diagnoses Abnormal laboratory test Malaise and fatigue Diarrhea, unspecified type Abdominal pain, unspecified abdominal location Procedures US ABD RT UPPER QUADRANT US ABDOMINAL REAL TIME W/IMAGE LIMITED Antonio Smalls MD [address] [place] [address] Us Imaging Referral ID Status Reason Start Date Expiration Date Visits Requested Visits Authorized [id number] Pending Review Auto-Generat ed Referral 2 05/18/2023 1 1 Specialty Diagnoses / Procedures Referred By Contac t Referred To Contact CT IMAGING Diagnoses Precordial pain Procedures CTA CORONARY W IVCON CTA HRT CORNRY ART/BYPASS GRFTS CONTRST 3D POST Sleniharika, Santi Hernandezoud, MD [address] [place] [address] Fax: Ct Imaging Referral ID Status Reason Start Date Expiration Date Visits Requested Visits Authorized [id number] Pending Review Auto-Generat ed Referral 10/30/2022 10/30/2023 1 1 Specialty Diagnoses / Procedures Referred By Contac t Referred To [facility] Diagnoses Precordial pain Procedures ECHO ECHO TTHRC R-T 2D W/WOM-MODE COMPL SPEC&COLR D Santi Mcallister MD [address] [place] [address] [facility] [address] [place] [address] Referral ID Status Reason Start Date Expiration Date Visits Requested Visits Authorized [id number] Additional Clinical Info Needed Auto-Generat ed Referral 10/07/2022 09/30/2023 1 1 Specialty Diagnoses / Procedures Referred By Contac t Referred To Contact INTERNAL MEDICINE Diagnoses Attention deficit hyperactivity disorder (ADHD), combined type Procedures ESTABLISH WITH PRIMARY CARE NEW PATIENT OFFICE/OUTPATIENT [facility] 60-74 MINUTES Antonio Smalls MD [address] [place] [address] [facility] [address] [place] [address] Referral ID Status Reason Start Date Expiration Date V isits Requested Visits Authorized [id number] Closed PCP Requested Referral 10/09/2022 10/09/2023 1 1 Specialty Diagnoses / Procedures Referred By Contac t Referred To Contact Diagnoses Attention deficit hyperactivity disorder (ADHD), combined type Kate Silva MD [address] [place] [address] Referral ID Status Reason Start Date Expiration Date Visits Re quested Visits Authorized [id number] Closed 1 1 Referral ID Status Reason Start Date Expiration Date Visits Re quested Visits Authorized [id number] Closed 1 1 Referral ID Status Reason Start Date Expiration Date Visits Re quested Visits Authorized [id number] Closed 1 1 Referral ID Status Reason Start Date Expiration Date Visits Re quested Visits Authorized [id number] Closed 1 1 Referral ID Status Reason Start Date Expiration Date Visits Re quested Visits Authorized [id number] Closed 1 1 Referral ID Status Reason Start Date Expiration Date Visits Re quested Visits Authorized [id number] Closed 1 1 Referral ID Status Reason Start Date Expiration Date Visits Re quested Visits Authorized [id number] Closed 1 1 Referral ID Status Reason Start Date Expiration Date Visits Re quested Visits Authorized [id number] Closed 1 1 Referral ID Status Reason Start Date Expiration Date Visits Re quested Visits Authorized [id number] Closed 1 1 Referral ID Status Reason Start Date Expiration Date Visits Re quested Visits Authorized [id number] Closed 1 1 Referral ID Status Reason Start Date Expiration Date Visits Re quested Visits Authorized [id number] Closed 1 1 Referral ID Status Reason Start Date Expiration Date Visits Re quested Visits Authorized [id number] Closed 1 1 Referral ID Status Reason Start Date Expiration Date Visits Re quested Visits Authorized [id number] Closed 1 1 Referral ID Status Reason Start Date Expiration Date Visits Re quested Visits Authorized [id number] Closed 1 1 Specialty Diagnoses / Procedures Referred By Contac t Referred To Contact Diagnoses Attention deficit hyperactivity disorder (ADHD), combined type Sher Hollingsworth, BE[employer] C[employer] [address] [place] [address] Referral ID Status Reason Start Date Expiration Date Visits Re quested Visits Authorized [id number] Closed 1 1 Referral ID Status Reason Start Date Expiration Date Visits Re quested Visits Authorized [id number] Closed 1 1 Specialty Diagnoses / Procedures Referred By Contac t Referred To Contact Orthopedics Diagnoses Right hand pain Procedures CONSULT PANEL TO ORTHOPAEDICS OFFICE/OUTPATIENT [facility]1983 MDM 60 MINUTES Moomaw, Terrence, BELL MAKER[employer] CUTTER [address] [place] [address] Referral ID Status Reason Start Date Expiration Date Visits Requested Visits Authorized [id number] Authorized PCP Requested Referral 12/17/2023 12/16/2024 1 1 Specialty Diagnoses / Procedures Referred By Contac t Referred To Contact XR IMAGING Diagnoses Right hand pain Procedures XR HAND GENERAL 3V PA/LAT/OBL RIGHT RADEX HAND MINIMUM 3 VIEWS Moomaw, Terrence, BELL MAKER[employer]JAM[employer] CUTTER [address] [place] [address] [place] [address] Referral ID Status Reason Start Date Expiration Date V isits Requested Visits Authorized [id number] Closed Auto-Generate d Referral 12/17/2023 01/15/2025 1 1 Referral ID Status Reason Start Date Expiration Date Visits Re quested Visits Authorized [id number] Closed 1 1 Referral ID Status Reason Start Date Expiration Date Visits Re quested Visits Authorized [id number] Closed 1 1 Referral ID Status Reason Start Date Expiration Date Visits Re quested Visits Authorized [id number] Closed 1 1 Specialty Diagnoses / Procedures Referred By Contac t Referred To Contact Diagnoses Chronic infection Vaginal yeast infection Pat Ferrer, HARLAN.JAM[employer] CUTTER [address] [place] [address] Referral ID Status Reason Start Date Expiration Date V isits Requested Visits Authorized [id number] Authorized 05/10/2024 08/07/2024 1 1 Chief Complaint [...] section and content) DATE CREATED AUTHOR 12/23/2017 [facility] DATE CREATED AUTHOR AUTHOR'S ORGANIZ ATION 11/23/2018 [facility] [place] DATE CREATED AUTHOR AUTHOR'S ORGANIZ ATION 08/15/2021 [facility] DATE CREATED AUTHOR AUTHOR'S ORGANIZ ATION 12/29/2022 [facility] DATE CREATED AUTHOR AUTHOR'S ORGANIZ ATION 11/26/2023 [facility] DATE CREATED AUTHOR AUTHOR'S ORGANIZ ATION 10/18/2024 [facility] DATE CREATED AUTHOR AUTHOR'S ORGANIZ ATION 04/28/2025 [facility] DATE CREATED AUTHOR AUTHOR'S ORGANIZ ATION 05/06/2025 [facility] Comments (unrecognize d section and content) In the event this informatio n is protected by the Federal Confidentiality of Alcohol and Drug Abuse Patient Records regulations: The Federal rules restrict any use of the information to criminally investigate or prosecute any alcohol or drug abuse patient.[facility] the event this information is protected by the Federal Confidentiality of Alcohol and Drug Abuse Patient Records regulations: The Federal rules restrict any use of the information to criminally investigate or prosecute any alcohol or drug abuse patient.[facility] HospitalIn the event this information is protected by the Federal Confidentiality of Alcohol and Drug Abuse Patient Records regulations: The Federal rules restrict any use of the information to criminally investigate or prosecute any alcohol or drug abuse patient.[facility]In the event this information is protected by the Federal Confidentiality of Alcohol and Drug Abuse Patient Records regulations: The Federal rules restrict any use of the information to criminally investigate or prosecute any alcohol or drug abuse patient.[facility] HospitalIn the event this information is protected by the Federal Confidentiality of Alcohol and Drug Abuse Patient Records regulations: The Federal rules restrict any use of the information to criminally investigate or prosecute any alcohol or drug abuse patient.[facility]In the event this information is protected by the Federal Confidentiality of Alcohol and Drug Abuse Patient Records regulations: The Federal rules restrict any use of the information to criminally investigate or prosecute any alcohol or drug abuse patient.[facility] HospitalIn the event this information is protected by the Federal Confidentiality of Alcohol and Drug Abuse Patient Records regulations: The Federal rules restrict any use of the information to criminally investigate or prosecute any alcohol or drug abuse patient.[facility] HospitalIn the event this information is protected by the Federal Confidentiality of Alcohol and Drug Abuse Patient Records regulations: The Federal rules restrict any use of the information to criminally investigate or prosecute any alcohol or drug abuse patient.[facility] HospitalIn the event this information is protected by the Federal Confidentiality of Alcohol and Drug Abuse Patient Records regulations: The Federal rules restrict any use of the information to criminally investigate or prosecute any alcohol or drug abuse patient.[facility] HospitalIn the event this information is protected by the Federal Confidentiality of Alcohol and Drug Abuse Patient Records regulations: The Federal rules restrict any use of the information to criminally investigate or prosecute any alcohol or drug abuse patient.[facility] HospitalIn the event this information is protected by the Federal Confidentiality of Alcohol and Drug Abuse Patient Records regulations: The Federal rules restrict any use of the information to criminally investigate or prosecute any alcohol or drug abuse patient.[facility] HospitalIn the event this information is protected by the Federal Confidentiality of Alcohol and Drug Abuse Patient Records regulations: The Federal rules restrict any use of the information to criminally investigate or prosecute any alcohol or drug abuse patient.[facility] HospitalIn the event this information is protected by the Federal Confidentiality of Alcohol and Drug Abuse Patient Records regulations: The Federal rules restrict any use of the information to criminally investigate or prosecute any alcohol or drug abuse patient.[facility] HospitalIn the event this information is protected by the Federal Confidentiality of Alcohol and Drug Abuse Patient Records regulations: The Federal rules restrict any use of the information to criminally investigate or prosecute any alcohol or drug abuse patient.[facility] HospitalIn the event this information is protected by the Federal Confidentiality of Alcohol and Drug Abuse Patient Records regulations: The Federal rules restrict any use of the information to criminally investigate or prosecute any alcohol or drug abuse patient.[facility] HospitalIn the event this information is protected by the Federal Confidentiality of Alcohol and Drug Abuse Patient Records regulations: The Federal rules restrict any use of the information to criminally investigate or prosecute any alcohol or drug abuse patient.[facility] HospitalIn the event this information is protected by the Federal Confidentiality of Alcohol and Drug Abuse Patient Records regulations: The Federal rules restrict any use of the information to criminally investigate or prosecute any alcohol or drug abuse patient.[facility] HospitalIn the event this information is protected by the Federal Confidentiality of Alcohol and Drug Abuse Patient Records regulations: The Federal rules restrict any use of the information to criminally investigate or prosecute any alcohol or drug abuse patient.[facility] HospitalIn the event this information is protected by the Federal Confidentiality of Alcohol and Drug Abuse Patient Records regulations: The Federal rules restrict any use of the information to criminally investigate or prosecute any alcohol or drug abuse patient.[facility] HospitalIn the event this information is protected by the Federal Confidentiality of Alcohol and Drug Abuse Patient Records regulations: The Federal rules restrict any use of the information to criminally investigate or prosecute any alcohol or drug abuse patient.[facility] HospitalIn the event this information is protected by the Federal Confidentiality of Alcohol and Drug Abuse Patient Records regulations: The Federal rules restrict any use of the information to criminally investigate or prosecute any alcohol or drug abuse patient.[facility] HospitalIn the event this information is protected by the Federal Confidentiality of Alcohol and Drug Abuse Patient Records regulations: The Federal rules restrict any use of the information to criminally investigate or prosecute any alcohol or drug abuse patient.[facility] HospitalIn the event this information is protected by the Federal Confidentiality of Alcohol and Drug Abuse Patient Records regulations: The Federal rules restrict any use of the information to criminally investigate or prosecute any alcohol or drug abuse patient.[facility] HospitalIn the event this information is protected by the Federal Confidentiality of Alcohol and Drug Abuse Patient Records regulations: The Federal rules restrict any use of the information to criminally investigate or prosecute any alcohol or drug abuse patient.[facility] HospitalIn the event this information is protected by the Federal Confidentiality of Alcohol and Drug Abuse Patient Records regulations: The Federal rules restrict any use of the information to criminally investigate or prosecute any alcohol or drug abuse patient.[facility] HospitalIn the event this information is protected by the Federal Confidentiality of Alcohol and Drug Abuse Patient Records regulations: The Federal rules restrict any use of the information to criminally investigate or prosecute any alcohol or drug abuse patient.[facility] HospitalIn the event this information is protected by the Federal Confidentiality of Alcohol and Drug Abuse Patient Records regulations: The Federal rules restrict any use of the information to criminally investigate or prosecute any alcohol or drug abuse patient.[facility] HospitalIn the event this information is protected by the Federal Confidentiality of Alcohol and Drug Abuse Patient Records regulations: The Federal rules restrict any use of the information to criminally investigate or prosecute any alcohol or drug abuse patient.[facility] HospitalIn the event this information is protected by the Federal Confidentiality of Alcohol and Drug Abuse Patient Records regulations: The Federal rules restrict any use of the information to criminally investigate or prosecute any alcohol or drug abuse patient.[facility] HospitalIn the event this information is protected by the Federal Confidentiality of Alcohol and Drug Abuse Patient Records regulations: The Federal rules restrict any use of the information to criminally investigate or prosecute any alcohol or drug abuse patient.[facility] HospitalIn the event this information is protected by the Federal Confidentiality of Alcohol and Drug Abuse Patient Records regulations: The Federal rules restrict any use of the information to criminally investigate or prosecute any alcohol or drug abuse patient.[facility] HospitalIn the event this information is protected by the Federal Confidentiality of Alcohol and Drug Abuse Patient Records regulations: The Federal rules restrict any use of the information to criminally investigate or prosecute any alcohol or drug abuse patient.[facility] HospitalIn the event this information is protected by the Federal Confidentiality of Alcohol and Drug Abuse Patient Records regulations: The Federal rules restrict any use of the information to criminally investigate or prosecute any alcohol or drug abuse patient.[facility] HospitalIn the event this information is protected by the Federal Confidentiality of Alcohol and Drug Abuse Patient Records regulations: The Federal rules restrict any use of the information to criminally investigate or prosecute any alcohol or drug abuse patient.[facility] HospitalIn the event this information is protected by the Federal Confidentiality of Alcohol and Drug Abuse Patient Records regulations: The Federal rules restrict any use of the information to criminally investigate or prosecute any alcohol or drug abuse patient.[facility] HospitalIn the event this information is protected by the Federal Confidentiality of Alcohol and Drug Abuse Patient Records regulations: The Federal rules restrict any use of the information to criminally investigate or prosecute any alcohol or drug abuse patient.[facility] HospitalIn the event this information is protected by the Federal Confidentiality of Alcohol and Drug Abuse Patient Records regulations: The Federal rules restrict any use of the information to criminally investigate or prosecute any alcohol or drug abuse patient.[facility] HospitalIn the event this information is protected by the Federal Confidentiality of Alcohol and Drug Abuse Patient Records regulations: The Federal rules restrict any use of the information to criminally investigate or prosecute any alcohol or drug abuse patient.[facility] HospitalIn the event this information is protected by the Federal Confidentiality of Alcohol and Drug Abuse Patient Records regulations: The Federal rules restrict any use of the information to criminally investigate or prosecute any alcohol or drug abuse patient.[facility] HospitalIn the event this information is protected by the Federal Confidentiality of Alcohol and Drug Abuse Patient Records regulations: The Federal rules restrict any use of the information to criminally investigate or prosecute any alcohol or drug abuse patient.[facility] HospitalIn the event this information is protected by the Federal Confidentiality of Alcohol and Drug Abuse Patient Records regulations: The Federal rules restrict any use of the information to criminally investigate or prosecute any alcohol or drug abuse patient.[facility] HospitalIn the event this information is protected by the Federal Confidentiality of Alcohol and Drug Abuse Patient Records regulations: The Federal rules restrict any use of the information to criminally investigate or prosecute any alcohol or drug abuse patient.[facility] HospitalIn the event this information is protected by the Federal Confidentiality of Alcohol and Drug Abuse Patient Records regulations: The Federal rules restrict any use of the information to criminally investigate or prosecute any alcohol or drug abuse patient.[facility] HospitalIn the event this information is protected by the Federal Confidentiality of Alcohol and Drug Abuse Patient Records regulations: The Federal rules restrict any use of the information to criminally investigate or prosecute any alcohol or drug abuse patient.[facility] HospitalIn the event this information is protected by the Federal Confidentiality of Alcohol and Drug Abuse Patient Records regulations: The Federal rules restrict any use of the information to criminally investigate or prosecute any alcohol or drug abuse patient.[facility] HospitalIn the event this information is protected by the Federal Confidentiality of Alcohol and Drug Abuse Patient Records regulations: The Federal rules restrict any use of the information to criminally investigate or prosecute any alcohol or drug abuse patient.[facility] HospitalIn the event this information is protected by the Federal Confidentiality of Alcohol and Drug Abuse Patient Records regulations: The Federal rules restrict any use of the information to criminally investigate or prosecute any alcohol or drug abuse patient.[facility] HospitalIn the event this information is protected by the Federal Confidentiality of Alcohol and Drug Abuse Patient Records regulations: The Federal rules restrict any use of the information to criminally investigate or prosecute any alcohol or drug abuse patient.[facility] HospitalIn the event this information is protected by the Federal Confidentiality of Alcohol and Drug Abuse Patient Records regulations: The Federal rules restrict any use of the information to criminally investigate or prosecute any alcohol or drug abuse patient.[facility] HospitalIn the event this information is protected by the Federal Confidentiality of Alcohol and Drug Abuse Patient Records regulations: The Federal rules restrict any use of the information to criminally investigate or prosecute any alcohol or drug abuse patient.[facility] HospitalIn the event this information is protected by the Federal Confidentiality of Alcohol and Drug Abuse Patient Records regulations: The Federal rules restrict any use of the information to criminally investigate or prosecute any alcohol or drug abuse patient.[facility] HospitalIn the event this information is protected by the Federal Confidentiality of Alcohol and Drug Abuse Patient Records regulations: The Federal rules restrict any use of the information to criminally investigate or prosecute any alcohol or drug abuse patient.[facility] HospitalIn the event this information is protected by the Federal Confidentiality of Alcohol and Drug Abuse Patient Records regulations: The Federal rules restrict any use of the information to criminally investigate or prosecute any alcohol or drug abuse patient.[facility] HospitalIn the event this information is protected by the Federal Confidentiality of Alcohol and Drug Abuse Patient Records regulations: The Federal rules restrict any use of the information to criminally investigate or prosecute any alcohol or drug abuse patient.[facility] HospitalIn the event this information is protected by the Federal Confidentiality of Alcohol and Drug Abuse Patient Records regulations: The Federal rules restrict any use of the information to criminally investigate or prosecute any alcohol or drug abuse patient.[facility] HospitalIn the event this information is protected by the Federal Confidentiality of Alcohol and Drug Abuse Patient Records regulations: The Federal rules restrict any use of the information to criminally investigate or prosecute any alcohol or drug abuse patient.[facility] HospitalIn the event this information is protected by the Federal Confidentiality of Alcohol and Drug Abuse Patient Records regulations: The Federal rules restrict any use of the information to criminally investigate or prosecute any alcohol or drug abuse patient.[facility] HospitalIn the event this information is protected by the Federal Confidentiality of Alcohol and Drug Abuse Patient Records regulations: The Federal rules restrict any use of the information to criminally investigate or prosecute any alcohol or drug abuse patient.[facility] HospitalIn the event this information is protected by the Federal Confidentiality of Alcohol and Drug Abuse Patient Records regulations: The Federal rules restrict any use of the information to criminally investigate or prosecute any alcohol or drug abuse patient.[facility]In the event this information is protected by the Federal Confidentiality of Alcohol and Drug Abuse Patient Records regulations: The Federal rules restrict any use of the information to criminally investigate or prosecute any alcohol or drug abuse patient.[facility]In the event this information is protected by the Federal Confidentiality of Alcohol and Drug Abuse Patient Records regulations: The Federal rules restrict any use of the information to criminally investigate or prosecute any alcohol or drug abuse patient.[facility]In the event this information is protected by the Federal Confidentiality of Alcohol and Drug Abuse Patient Records regulations: The Federal rules restrict any use of the information to criminally investigate or prosecute any alcohol or drug abuse patient.[facility]In the event this information is protected by the Federal Confidentiality of Alcohol and Drug Abuse Patient Records regulations: The Federal rules restrict any use of the information to criminally investigate or prosecute any alcohol or drug abuse patient.[facility]In the event this information is protected by the Federal Confidentiality of Alcohol and Drug Abuse Patient Records regulations: The Federal rules restrict any use of the information to criminally investigate or prosecute any alcohol or drug abuse patient.[facility]In the event this information is protected by the Federal Confidentiality of Alcohol and Drug Abuse Patient Records regulations: The Federal rules restrict any use of the information to criminally investigate or prosecute any alcohol or drug abuse patient.[facility]In the event this information is protected by the Federal Confidentiality of Alcohol and Drug Abuse Patient Records regulations: The Federal rules restrict any use of the information to criminally investigate or prosecute any alcohol or drug abuse patient.[facility]In the event this information is protected by the Federal Confidentiality of Alcohol and Drug Abuse Patient Records regulations: The Federal rules restrict any use of the information to criminally investigate or prosecute any alcohol or drug abuse patient.[facility]In the event this information is protected by the Federal Confidentiality of Alcohol and Drug Abuse Patient Records regulations: The Federal rules restrict any use of the information to criminally investigate or prosecute any alcohol or drug abuse patient.[facility]In the event this information is protected by the Federal Confidentiality of Alcohol and Drug Abuse Patient Records regulations: The Federal rules restrict any use of the information to criminally investigate or prosecute any alcohol or drug abuse patient.[facility]In the event this information is protected by the Federal Confidentiality of Alcohol and Drug Abuse Patient Records regulations: The Federal rules restrict any use of the information to criminally investigate or prosecute any alcohol or drug abuse patient.[facility] HospitalIn the event this information is protected by the Federal Confidentiality of Alcohol and Drug Abuse Patient Records regulations: The Federal rules restrict any use of the information to criminally investigate or prosecute any alcohol or drug abuse patient.[facility] HospitalIn the event this information is protected by the Federal Confidentiality of Alcohol and Drug Abuse Patient Records regulations: The Federal rules restrict any use of the information to criminally investigate or prosecute any alcohol or drug abuse patient.[facility] HospitalIn the event this information is protected by the Federal Confidentiality of Alcohol and Drug Abuse Patient Records regulations: The Federal rules restrict any use of the information to criminally investigate or prosecute any alcohol or drug abuse patient.[facility] HospitalIn the event this information is protected by the Federal Confidentiality of Alcohol and Drug Abuse Patient Records regulations: The Federal rules restrict any use of the information to criminally investigate or prosecute any alcohol or drug abuse patient.[facility] HospitalIn the event this information is protected by the Federal Confidentiality of Alcohol and Drug Abuse Patient Records regulations: The Federal rules restrict any use of the information to criminally investigate or prosecute any alcohol or drug abuse patient.[facility] HospitalIn the event this information is protected by the Federal Confidentiality of Alcohol and Drug Abuse Patient Records regulations: The Federal rules restrict any use of the information to criminally investigate or prosecute any alcohol or drug abuse patient.[facility] HospitalIn the event this information is protected by the Federal Confidentiality of Alcohol and Drug Abuse Patient Records regulations: The Federal rules restrict any use of the information to criminally investigate or prosecute any alcohol or drug abuse patient.[facility] HospitalIn the event this information is protected by the Federal Confidentiality of Alcohol and Drug Abuse Patient Records regulations: The Federal rules restrict any use of the information to criminally investigate or prosecute any alcohol or drug abuse patient.[facility] HospitalIn the event this information is protected by the Federal Confidentiality of Alcohol and Drug Abuse Patient Records regulations: The Federal rules restrict any use of the information to criminally investigate or prosecute any alcohol or drug abuse patient.[facility] HospitalIn the event this information is protected by the Federal Confidentiality of Alcohol and Drug Abuse Patient Records regulations: The Federal rules restrict any use of the information to criminally investigate or prosecute any alcohol or drug abuse patient.[facility] HospitalIn the event this information is protected by the Federal Confidentiality of Alcohol and Drug Abuse Patient Records regulations: The Federal rules restrict any use of the information to criminally investigate or prosecute any alcohol or drug abuse patient.[facility] HospitalIn the event this information is protected by the Federal Confidentiality of Alcohol and Drug Abuse Patient Records regulations: The Federal rules restrict any use of the information to criminally investigate or prosecute any alcohol or drug abuse patient.[facility] HospitalIn the event this information is protected by the Federal Confidentiality of Alcohol and Drug Abuse Patient Records regulations: The Federal rules restrict any use of the information to criminally investigate or prosecute any alcohol or drug abuse patient.[facility] HospitalIn the event this information is protected by the Federal Confidentiality of Alcohol and Drug Abuse Patient Records regulations: The Federal rules restrict any use of the information to criminally investigate or prosecute any alcohol or drug abuse patient.[facility] HospitalIn the event this information is protected by the Federal Confidentiality of Alcohol and Drug Abuse Patient Records regulations: The Federal rules restrict any use of the information to criminally investigate or prosecute any alcohol or drug abuse patient.[facility] HospitalIn the event this information is protected by the Federal Confidentiality of Alcohol and Drug Abuse Patient Records regulations: The Federal rules restrict any use of the information to criminally investigate or prosecute any alcohol or drug abuse patient.[facility] HospitalIn the event this information is protected by the Federal Confidentiality of Alcohol and Drug Abuse Patient Records regulations: The Federal rules restrict any use of the information to criminally investigate or prosecute any alcohol or drug abuse patient.[facility] HospitalIn the event this information is protected by the Federal Confidentiality of Alcohol and Drug Abuse Patient Records regulations: The Federal rules restrict any use of the information to criminally investigate or prosecute any alcohol or drug abuse patient.[facility] HospitalIn the event this information is protected by the Federal Confidentiality of Alcohol and Drug Abuse Patient Records regulations: The Federal rules restrict any use of the information to criminally investigate or prosecute any alcohol or drug abuse patient.[facility] HospitalIn the event this information is protected by the Federal Confidentiality of Alcohol and Drug Abuse Patient Records regulations: The Federal rules restrict any use of the information to criminally investigate or prosecute any alcohol or drug abuse patient.[facility] HospitalIn the event this information is protected by the Federal Confidentiality of Alcohol and Drug Abuse Patient Records regulations: The Federal rules restrict any use of the information to criminally investigate or prosecute any alcohol or drug abuse patient.[facility] HospitalIn the event this information is protected by the Federal Confidentiality of Alcohol and Drug Abuse Patient Records regulations: The Federal rules restrict any use of the information to criminally investigate or prosecute any alcohol or drug abuse patient.[facility] HospitalIn the event this information is protected by the Federal Confidentiality of Alcohol and Drug Abuse Patient Records regulations: The Federal rules restrict any use of the information to criminally investigate or prosecute any alcohol or drug abuse patient.[facility] HospitalIn the event this information is protected by the Federal Confidentiality of Alcohol and Drug Abuse Patient Records regulations: The Federal rules restrict any use of the information to criminally investigate or prosecute any alcohol or drug abuse patient.[facility] HospitalIn the event this information is protected by the Federal Confidentiality of Alcohol and Drug Abuse Patient Records regulations: The Federal rules restrict any use of the information to criminally investigate or prosecute any alcohol or drug abuse patient.[facility] HospitalIn the event this information is protected by the Federal Confidentiality of Alcohol and Drug Abuse Patient Records regulations: The Federal rules restrict any use of the information to criminally investigate or prosecute any alcohol or drug abuse patient.[facility] HospitalIn the event this information is protected by the Federal Confidentiality of Alcohol and Drug Abuse Patient Records regulations: The Federal rules restrict any use of the information to criminally investigate or prosecute any alcohol or drug abuse patient.[facility] HospitalIn the event this information is protected by the Federal Confidentiality of Alcohol and Drug Abuse Patient Records regulations: The Federal rules restrict any use of the information to criminally investigate or prosecute any alcohol or drug abuse patient.[facility] HospitalIn the event this information is protected by the Federal Confidentiality of Alcohol and Drug Abuse Patient Records regulations: The Federal rules restrict any use of the information to criminally investigate or prosecute any alcohol or drug abuse patient.[facility] HospitalIn the event this information is protected by the Federal Confidentiality of Alcohol and Drug Abuse Patient Records regulations: The Federal rules restrict any use of the information to criminally investigate or prosecute any alcohol or drug abuse patient.[facility] HospitalIn the event this information is protected by the Federal Confidentiality of Alcohol and Drug Abuse Patient Records regulations: The Federal rules restrict any use of the information to criminally investigate or prosecute any alcohol or drug abuse patient.[facility] HospitalIn the event this information is protected by the Federal Confidentiality of Alcohol and Drug Abuse Patient Records regulations: The Federal rules restrict any use of the information to criminally investigate or prosecute any alcohol or drug abuse patient.[facility] HospitalIn the event this information is protected by the Federal Confidentiality of Alcohol and Drug Abuse Patient Records regulations: The Federal rules restrict any use of the information to criminally investigate or prosecute any alcohol or drug abuse patient.[facility] HospitalIn the event this information is protected by the Federal Confidentiality of Alcohol and Drug Abuse Patient Records regulations: The Federal rules restrict any use of the information to criminally investigate or prosecute any alcohol or drug abuse patient.[facility] HospitalIn the event this information is protected by the Federal Confidentiality of Alcohol and Drug Abuse Patient Records regulations: The Federal rules restrict any use of the information to criminally investigate or prosecute any alcohol or drug abuse patient.[facility] HospitalIn the event this information is protected by the Federal Confidentiality of Alcohol and Drug Abuse Patient Records regulations: The Federal rules restrict any use of the information to criminally investigate or prosecute any alcohol or drug abuse patient.[facility] HospitalIn the event this information is protected by the Federal Confidentiality of Alcohol and Drug Abuse Patient Records regulations: The Federal rules restrict any use of the information to criminally investigate or prosecute any alcohol or drug abuse patient.[facility] HospitalIn the event this information is protected by the Federal Confidentiality of Alcohol and Drug Abuse Patient Records regulations: The Federal rules restrict any use of the information to criminally investigate or prosecute any alcohol or drug abuse patient.[facility] HospitalIn the event this information is protected by the Federal Confidentiality of Alcohol and Drug Abuse Patient Records regulations: The Federal rules restrict any use of the information to criminally investigate or prosecute any alcohol or drug abuse patient.[facility] HospitalIn the event this information is protected by the Federal Confidentiality of Alcohol and Drug Abuse Patient Records regulations: The Federal rules restrict any use of the information to criminally investigate or prosecute any alcohol or drug abuse patient.[facility] HospitalIn the event this information is protected by the Federal Confidentiality of Alcohol and Drug Abuse Patient Records regulations: The Federal rules restrict any use of the information to criminally investigate or prosecute any alcohol or drug abuse patient.[facility] HospitalIn the event this information is protected by the Federal Confidentiality of Alcohol and Drug Abuse Patient Records regulations: The Federal rules restrict any use of the information to criminally investigate or prosecute any alcohol or drug abuse patient.[facility] HospitalIn the event this information is protected by the Federal Confidentiality of Alcohol and Drug Abuse Patient Records regulations: The Federal rules restrict any use of the information to criminally investigate or prosecute any alcohol or drug abuse patient.[facility] HospitalIn the event this information is protected by the Federal Confidentiality of Alcohol and Drug Abuse Patient Records regulations: The Federal rules restrict any use of the information to criminally investigate or prosecute any alcohol or drug abuse patient.[facility] HospitalIn the event this information is protected by the Federal Confidentiality of Alcohol and Drug Abuse Patient Records regulations: The Federal rules restrict any use of the information to criminally investigate or prosecute any alcohol or drug abuse patient.[facility] HospitalIn the event this information is protected by the Federal Confidentiality of Alcohol and Drug Abuse Patient Records regulations: The Federal rules restrict any use of the information to criminally investigate or prosecute any alcohol or drug abuse patient.[facility] HospitalIn the event this information is protected by the Federal Confidentiality of Alcohol and Drug Abuse Patient Records regulations: The Federal rules restrict any use of the information to criminally investigate or prosecute any alcohol or drug abuse patient.[facility] HospitalIn the event this information is protected by the Federal Confidentiality of Alcohol and Drug Abuse Patient Records regulations: The Federal rules restrict any use of the information to criminally investigate or prosecute any alcohol or drug abuse patient.[facility] HospitalIn the event this information is protected by the Federal Confidentiality of Alcohol and Drug Abuse Patient Records regulations: The Federal rules restrict any use of the information to criminally investigate or prosecute any alcohol or drug abuse patient.[facility] HospitalIn the event this information is protected by the Federal Confidentiality of Alcohol and Drug Abuse Patient Records regulations: The Federal rules restrict any use of the information to criminally investigate or prosecute any alcohol or drug abuse patient.[facility] HospitalIn the event this information is protected by the Federal Confidentiality of Alcohol and Drug Abuse Patient Records regulations: The Federal rules restrict any use of the information to criminally investigate or prosecute any alcohol or drug abuse patient.[facility] HospitalIn the event this information is protected by the Federal Confidentiality of Alcohol and Drug Abuse Patient Records regulations: The Federal rules restrict any use of the information to criminally investigate or prosecute any alcohol or drug abuse patient.[facility] HospitalIn the event this information is protected by the Federal Confidentiality of Alcohol and Drug Abuse Patient Records regulations: The Federal rules restrict any use of the information to criminally investigate or prosecute any alcohol or drug abuse patient.[facility] HospitalIn the event this information is protected by the Federal Confidentiality of Alcohol and Drug Abuse Patient Records regulations: The Federal rules restrict any use of the information to criminally investigate or prosecute any alcohol or drug abuse patient.[facility] HospitalIn the event this information is protected by the Federal Confidentiality of Alcohol and Drug Abuse Patient Records regulations: The Federal rules restrict any use of the information to criminally investigate or prosecute any alcohol or drug abuse patient.[facility] HospitalIn the event this information is protected by the Federal Confidentiality of Alcohol and Drug Abuse Patient Records regulations: The Federal rules restrict any use of the information to criminally investigate or prosecute any alcohol or drug abuse patient.[facility] HospitalIn the event this information is protected by the Federal Confidentiality of Alcohol and Drug Abuse Patient Records regulations: The Federal rules restrict any use of the information to criminally investigate or prosecute any alcohol or drug abuse patient.[facility] HospitalIn the event this information is protected by the Federal Confidentiality of Alcohol and Drug Abuse Patient Records regulations: The Federal rules restrict any use of the information to criminally investigate or prosecute any alcohol or drug abuse patient.[facility] HospitalIn the event this information is protected by the Federal Confidentiality of Alcohol and Drug Abuse Patient Records regulations: The Federal rules restrict any use of the information to criminally investigate or prosecute any alcohol or drug abuse patient.[facility] HospitalIn the event this information is protected by the Federal Confidentiality of Alcohol and Drug Abuse Patient Records regulations: The Federal rules restrict any use of the information to criminally investigate or prosecute any alcohol or drug abuse patient.[facility]In the event this information is protected by the Federal Confidentiality of Alcohol and Drug Abuse Patient Records regulations: The Federal rules restrict any use of the information to criminally investigate or prosecute any alcohol or drug abuse patient.[facility] HospitalIn the event this information is protected by the Federal Confidentiality of Alcohol and Drug Abuse Patient Records regulations: The Federal rules restrict any use of the information to criminally investigate or prosecute any alcohol or drug abuse patient.[facility] HospitalIn the event this information is protected by the Federal Confidentiality of Alcohol and Drug Abuse Patient Records regulations: The Federal rules restrict any use of the information to criminally investigate or prosecute any alcohol or drug abuse patient.[facility] HospitalIn the event this information is protected by the Federal Confidentiality of Alcohol and Drug Abuse Patient Records regulations: The Federal rules restrict any use of the information to criminally investigate or prosecute any alcohol or drug abuse patient.[facility]In the event this information is protected by the Federal Confidentiality of Alcohol and Drug Abuse Patient Records regulations: The Federal rules restrict any use of the information to criminally investigate or prosecute any alcohol or drug abuse patient.[facility] HospitalIn the event this information is protected by the Federal Confidentiality of Alcohol and Drug Abuse Patient Records regulations: The Federal rules restrict any use of the information to criminally investigate or prosecute any alcohol or drug abuse patient.[facility]In the event this information is protected by the Federal Confidentiality of Alcohol and Drug Abuse Patient Records regulations: The Federal rules restrict any use of the information to criminally investigate or prosecute any alcohol or drug abuse patient.[facility]In the event this information is protected by the Federal Confidentiality of Alcohol and Drug Abuse Patient Records regulations: The Federal rules restrict any use of the information to criminally investigate or prosecute any alcohol or drug abuse patient.[facility]In the event this information is protected by the Federal Confidentiality of Alcohol and Drug Abuse Patient Records regulations: The Federal rules restrict any use of the information to criminally investigate or prosecute any alcohol or drug abuse patient.[facility] HospitalIn the event this information is protected by the Federal Confidentiality of Alcohol and Drug Abuse Patient Records regulations: The Federal rules restrict any use of the information to criminally investigate or prosecute any alcohol or drug abuse patient.[facility] HospitalIn the event this information is protected by the Federal Confidentiality of Alcohol and Drug Abuse Patient Records regulations: The Federal rules restrict any use of the information to criminally investigate or prosecute any alcohol or drug abuse patient.[facility] HospitalIn the event this information is protected by the Federal Confidentiality of Alcohol and Drug Abuse Patient Records regulations: The Federal rules restrict any use of the information to criminally investigate or prosecute any alcohol or drug abuse patient.[facility] HospitalIn the event this information is protected by the Federal Confidentiality of Alcohol and Drug Abuse Patient Records regulations: The Federal rules restrict any use of the information to criminally investigate or prosecute any alcohol or drug abuse patient.[facility] HospitalIn the event this information is protected by the Federal Confidentiality of Alcohol and Drug Abuse Patient Records regulations: The Federal rules restrict any use of the information to criminally investigate or prosecute any alcohol or drug abuse patient.[facility] HospitalIn the event this information is protected by the Federal Confidentiality of Alcohol and Drug Abuse Patient Records regulations: The Federal rules restrict any use of the information to criminally investigate or prosecute any alcohol or drug abuse patient.[facility] HospitalIn the event this information is protected by the Federal Confidentiality of Alcohol and Drug Abuse Patient Records regulations: The Federal rules restrict any use of the information to criminally investigate or prosecute any alcohol or drug abuse patient.[facility] HospitalIn the event this information is protected by the Federal Confidentiality of Alcohol and Drug Abuse Patient Records regulations: The Federal rules restrict any use of the information to criminally investigate or prosecute any alcohol or drug abuse patient.[facility] HospitalIn the event this information is protected by the Federal Confidentiality of Alcohol and Drug Abuse Patient Records regulations: The Federal rules restrict any use of the information to criminally investigate or prosecute any alcohol or drug abuse patient.[facility] HospitalIn the event this information is protected by the Federal Confidentiality of Alcohol and Drug Abuse Patient Records regulations: The Federal rules restrict any use of the information to criminally investigate or prosecute any alcohol or drug abuse patient.[facility] HospitalIn the event this information is protected by the Federal Confidentiality of Alcohol and Drug Abuse Patient Records regulations: The Federal rules restrict any use of the information to criminally investigate or prosecute any alcohol or drug abuse patient.[facility] HospitalIn the event this information is protected by the Federal Confidentiality of Alcohol and Drug Abuse Patient Records regulations: The Federal rules restrict any use of the information to criminally investigate or prosecute any alcohol or drug abuse patient.[facility] HospitalIn the event this information is protected by the Federal Confidentiality of Alcohol and Drug Abuse Patient Records regulations: The Federal rules restrict any use of the information to criminally investigate or prosecute any alcohol or drug abuse patient.[facility] HospitalIn the event this information is protected by the Federal Confidentiality of Alcohol and Drug Abuse Patient Records regulations: The Federal rules restrict any use of the information to criminally investigate or prosecute any alcohol or drug abuse patient.[facility] HospitalIn the event this information is protected by the Federal Confidentiality of Alcohol and Drug Abuse Patient Records regulations: The Federal rules restrict any use of the information to criminally investigate or prosecute any alcohol or drug abuse patient.[facility] HospitalIn the event this information is protected by the Federal Confidentiality of Alcohol and Drug Abuse Patient Records regulations: The Federal rules restrict any use of the information to criminally investigate or prosecute any alcohol or drug abuse patient.[facility] HospitalIn the event this information is protected by the Federal Confidentiality of Alcohol and Drug Abuse Patient Records regulations: The Federal rules restrict any use of the information to criminally investigate or prosecute any alcohol or drug abuse patient.[facility] HospitalIn the event this information is protected by the Federal Confidentiality of Alcohol and Drug Abuse Patient Records regulations: The Federal rules restrict any use of the information to criminally investigate or prosecute any alcohol or drug abuse patient.[facility] HospitalIn the event this information is protected by the Federal Confidentiality of Alcohol and Drug Abuse Patient Records regulations: The Federal rules restrict any use of the information to criminally investigate or prosecute any alcohol or drug abuse patient.[facility] HospitalIn the event this information is protected by the Federal Confidentiality of Alcohol and Drug Abuse Patient Records regulations: The Federal rules restrict any use of the information to criminally investigate or prosecute any alcohol or drug abuse patient.[facility] HospitalIn the event this information is protected by the Federal Confidentiality of Alcohol and Drug Abuse Patient Records regulations: The Federal rules restrict any use of the information to criminally investigate or prosecute any alcohol or drug abuse patient.[facility] HospitalIn the event this information is protected by the Federal Confidentiality of Alcohol and Drug Abuse Patient Records regulations: The Federal rules restrict any use of the information to criminally investigate or prosecute any alcohol or drug abuse patient.[facility] HospitalIn the event this information is protected by the Federal Confidentiality of Alcohol and Drug Abuse Patient Records regulations: The Federal rules restrict any use of the information to criminally investigate or prosecute any alcohol or drug abuse patient.[facility] HospitalIn the event this information is protected by the Federal Confidentiality of Alcohol and Drug Abuse Patient Records regulations: The Federal rules restrict any use of the information to criminally investigate or prosecute any alcohol or drug abuse patient.[facility] HospitalIn the event this information is protected by the Federal Confidentiality of Alcohol and Drug Abuse Patient Records regulations: The Federal rules restrict any use of the information to criminally investigate or prosecute any alcohol or drug abuse patient.[facility] HospitalIn the event this information is protected by the Federal Confidentiality of Alcohol and Drug Abuse Patient Records regulations: The Federal rules restrict any use of the information to criminally investigate or prosecute any alcohol or drug abuse patient.[facility] HospitalIn the event this information is protected by the Federal Confidentiality of Alcohol and Drug Abuse Patient Records regulations: The Federal rules restrict any use of the information to criminally investigate or prosecute any alcohol or drug abuse patient.[facility] HospitalIn the event this information is protected by the Federal Confidentiality of Alcohol and Drug Abuse Patient Records regulations: The Federal rules restrict any use of the information to criminally investigate or prosecute any alcohol or drug abuse patient.[facility] HospitalIn the event this information is protected by the Federal Confidentiality of Alcohol and Drug Abuse Patient Records regulations: The Federal rules restrict any use of the information to criminally investigate or prosecute any alcohol or drug abuse patient.[facility] HospitalIn the event this information is protected by the Federal Confidentiality of Alcohol and Drug Abuse Patient Records regulations: The Federal rules restrict any use of the information to criminally investigate or prosecute any alcohol or drug abuse patient.[facility] HospitalIn the event this information is protected by the Federal Confidentiality of Alcohol and Drug Abuse Patient Records regulations: The Federal rules restrict any use of the information to criminally investigate or prosecute any alcohol or drug abuse patient.[facility] HospitalIn the event this information is protected by the Federal Confidentiality of Alcohol and Drug Abuse Patient Records regulations: The Federal rules restrict any use of the information to criminally investigate or prosecute any alcohol or drug abuse patient.[facility] HospitalIn the event this information is protected by the Federal Confidentiality of Alcohol and Drug Abuse Patient Records regulations: The Federal rules restrict any use of the information to criminally investigate or prosecute any alcohol or drug abuse patient.[facility] HospitalIn the event this information is protected by the Federal Confidentiality of Alcohol and Drug Abuse Patient Records regulations: The Federal rules restrict any use of the information to criminally investigate or prosecute any alcohol or drug abuse patient.[facility] HospitalIn the event this information is protected by the Federal Confidentiality of Alcohol and Drug Abuse Patient Records regulations: The Federal rules restrict any use of the information to criminally investigate or prosecute any alcohol or drug abuse patient.[facility] HospitalIn the event this information is protected by the Federal Confidentiality of Alcohol and Drug Abuse Patient Records regulations: The Federal rules restrict any use of the information to criminally investigate or prosecute any alcohol or drug abuse patient.[facility] HospitalIn the event this information is protected by the Federal Confidentiality of Alcohol and Drug Abuse Patient Records regulations: The Federal rules restrict any use of the information to criminally investigate or prosecute any alcohol or drug abuse patient.[facility] HospitalIn the event this information is protected by the Federal Confidentiality of Alcohol and Drug Abuse Patient Records regulations: The Federal rules restrict any use of the information to criminally investigate or prosecute any alcohol or drug abuse patient.[facility] HospitalIn the event this information is protected by the Federal Confidentiality of Alcohol and Drug Abuse Patient Records regulations: The Federal rules restrict any use of the information to criminally investigate or prosecute any alcohol or drug abuse patient.[facility] HospitalIn the event this information is protected by the Federal Confidentiality of Alcohol and Drug Abuse Patient Records regulations: The Federal rules restrict any use of the information to criminally investigate or prosecute any alcohol or drug abuse patient.[facility] HospitalIn the event this information is protected by the Federal Confidentiality of Alcohol and Drug Abuse Patient Records regulations: The Federal rules restrict any use of the information to criminally investigate or prosecute any alcohol or drug abuse patient.[facility] HospitalIn the event this information is protected by the Federal Confidentiality of Alcohol and Drug Abuse Patient Records regulations: The Federal rules restrict any use of the information to criminally investigate or prosecute any alcohol or drug abuse patient.[facility] HospitalIn the event this information is protected by the Federal Confidentiality of Alcohol and Drug Abuse Patient Records regulations: The Federal rules restrict any use of the information to criminally investigate or prosecute any alcohol or drug abuse patient.[facility] HospitalIn the event this information is protected by the Federal Confidentiality of Alcohol and Drug Abuse Patient Records regulations: The Federal rules restrict any use of the information to criminally investigate or prosecute any alcohol or drug abuse patient.[facility] HospitalIn the event this information is protected by the Federal Confidentiality of Alcohol and Drug Abuse Patient Records regulations: The Federal rules restrict any use of the information to criminally investigate or prosecute any alcohol or drug abuse patient.[facility] HospitalIn the event this information is protected by the Federal Confidentiality of Alcohol and Drug Abuse Patient Records regulations: The Federal rules restrict any use of the information to criminally investigate or prosecute any alcohol or drug abuse patient.[facility] HospitalIn the event this information is protected by the Federal Confidentiality of Alcohol and Drug Abuse Patient Records regulations: The Federal rules restrict any use of the information to criminally investigate or prosecute any alcohol or drug abuse patient.[facility] HospitalIn the event this information is protected by the Federal Confidentiality of Alcohol and Drug Abuse Patient Records regulations: The Federal rules restrict any use of the information to criminally investigate or prosecute any alcohol or drug abuse patient.[facility] HospitalIn the event this information is protected by the Federal Confidentiality of Alcohol and Drug Abuse Patient Records regulations: The Federal rules restrict any use of the information to criminally investigate or prosecute any alcohol or drug abuse patient.[facility] HospitalIn the event this information is protected by the Federal Confidentiality of Alcohol and Drug Abuse Patient Records regulations: The Federal rules restrict any use of the information to criminally investigate or prosecute any alcohol or drug abuse patient.[facility] HospitalIn the event this information is protected by the Federal Confidentiality of Alcohol and Drug Abuse Patient Records regulations: The Federal rules restrict any use of the information to criminally investigate or prosecute any alcohol or drug abuse patient.[facility] HospitalIn the event this information is protected by the Federal Confidentiality of Alcohol and Drug Abuse Patient Records regulations: The Federal rules restrict any use of the information to criminally investigate or prosecute any alcohol or drug abuse patient.[facility] HospitalIn the event this information is protected by the Federal Confidentiality of Alcohol and Drug Abuse Patient Records regulations: The Federal rules restrict any use of the information to criminally investigate or prosecute any alcohol or drug abuse patient.[facility] HospitalIn the event this information is protected by the Federal Confidentiality of Alcohol and Drug Abuse Patient Records regulations: The Federal rules restrict any use of the information to criminally investigate or prosecute any alcohol or drug abuse patient.[facility] HospitalIn the event this information is protected by the Federal Confidentiality of Alcohol and Drug Abuse Patient Records regulations: The Federal rules restrict any use of the information to criminally investigate or prosecute any alcohol or drug abuse patient.[facility] HospitalIn the event this information is protected by the Federal Confidentiality of Alcohol and Drug Abuse Patient Records regulations: The Federal rules restrict any use of the information to criminally investigate or prosecute any alcohol or drug abuse patient.[facility] HospitalIn the event this information is protected by the Federal Confidentiality of Alcohol and Drug Abuse Patient Records regulations: The Federal rules restrict any use of the information to criminally investigate or prosecute any alcohol or drug abuse patient.[facility] Reason for Visit (unrecogniz ed section [...] abdominal location Procedures CONSULT TO GASTROENTEROLOGY OFFICE/OUTPATIENT [facility], [facility]1983 MDM 60-74 MINUTES Antonio Smalls MD [address] [place] [address] Referral ID Status Reason Start Date Expiration Date V isits Requested Visits Authorized [id number] Closed PCP Requested Referral 04/18/2022 04/18/2023 1 [...] BIOPSY OF LIVER [facility] [address] [place] [address] Referral ID Status Reason Start Date Expiration Date Visits Re quested Visits Authorized [id number] 1 1 Reason Onset Date Comments Refill [...] HIGH MDM 60-74 MINUTES Zuleika Perez PA-C [address] [facility] [place] [address] Referral ID Status Reason Start Date Expiration Date V isits Requested Visits Authorized [id number] Closed PCP Requested Referral 08/08/2022 08/08/2023 1 1 Reason Comments Throat Problem Pt reported throat p ain, x1 wk. Reason Comments Sleep Problem Sleepy all day -- x months Specialty Diagnoses / Procedures Referred By Tree Referred To Contact Diagnoses Malaise and fatigue Snoring Procedures CONSULT TO SLEEP MEDICINE - ADULT OFFICE/OUTPATIENT [facility] 60-74 MINUTES Antonio Smalls MD [address] [place] [address] Referral ID Status Reason Start Date Expiration Date V isits Requested Visits Authorized [id number] Closed PCP Requested Referral 08/27/2022 08/27/2023 1 [...] ESTABLISH WITH PRIMARY CARE NEW PATIENT OFFICE/OUTPATIENT [facility] 60-74 MINUTES Antonio Smalls MD [address] [place] [address] [facility] [address] [place] [address] Referral ID Status Reason Start Date Expiration Date V isits Requested Visits Authorized [id number] Closed PCP Requested Referral 10/09/2022 10/09/2023 1 1 Reason Comments Cough Congestion, sneezing x 1.5 weeks Reason Comments Spirometry Specialty Diagnoses / Procedures [facility] Diagnoses SOBOE (shortness of breath on exertion) Procedures SPIROMETRY WITH DILATOR IF OBSTRUCTED BRNCDILAT RSPSE SPMTRY PRE&POST-BRNCDILAT ADMN 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, 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 [employer] [place] [address] [place] [address] Res[facility] [place] [address] [place] [address] Referral ID Status Reason Start Date Expiration Date V isits Requested Visits Authorized [id number] Closed Auto-Generate d Referral 10/28/2022 11/27/2023 1 [...] REAL TIME W/IMAGE LIMITED Zuleika Avalos PA-C [address] [place] [address] [place] [address] Referral ID Status Reason Start Date Expiration Date V isits Requested Visits Authorized [id number] Closed Auto-Generate d Referral 04/22/2023 05/21/2024 1 1 Specialty Diagnoses / Procedures Referred By Contac t Referred To Contact [facility] Diagnoses Secondary amenorrhea Procedures US FEMALE PELVIS TRANSVAG US TRANSVAGINAL Kelly Nunez APRN.CNLiza [address] [place] [address] [place] [address] Referral ID Status Reason Start Date Expiration Date V isits Requested Visits Authorized [id number] Closed Auto-Generate d Referral 04/09/2023 05/08/2024 1 1 Specialty Diagnoses / Procedures Referred By Contac t Referred To Contact [facility] Diagnoses Abnormal laboratory test Malaise and fatigue Diarrhea, unspecified type Abdominal pain, unspecified abdominal location Procedures US ABD RT UPPER QUADRANT US ABDOMINAL REAL TIME W/IMAGE LIMITED Antonio Smalls MD [address] [place] [address] [place] [address] Referral ID Status Reason Start Date Expiration Date V isits Requested Visits Authorized [id number] Closed Auto-Generate d Referral 04/18/2022 05/18/2023 1 [...] NEW HIGH MDM 60 MINUTES [place], HARLAN.JAMB CUTTER [address] [place] [address] Referral ID Status Reason Start Date Expiration Date V isits Requested Visits Authorized [id number] Closed PCP Requested Referral 12/17/2023 12/16/2024 1 [...] Comments ER F/U Reason Comments ER F/U [facility] ER fatigue and h aving trouble sleep at nightdoes try and take naps during the day when able. Reason Comments F/U 3 Month still very tired and when that happens becomes light headed. Reason Comments ED Follow-up lightheadedness, fat giue x 1 month Reason Comments Recheck was seen in [facility] ER f or elevated heart rate Reason Comments Recheck Reason Onset Date Comments Refill Request 01/10/2025 Reason Onset Date Comments Refill Request 02/13/2025 Care Teams (unrecognized sec tion and content) Sofa Inspector Relationship Specialty Start Date End Date Antonio Smalls MD [address] [place], [place] [id number] PCP - General 02/26/06 Sofa Inspector Relationship Specialty Start Date End Date Antonio Smalls MD [address] [place], [place] [id number] PCP - General 02/26/06 Sofa Inspector Relationship Specialty Start Date End Date Antonio Smalls MD [address] [place] [address] PCP - General 02/26/06 Sofa Inspector Relationship Specialty Start Date End Date Antonio Smalls MD [address] [place], [place] [address] PCP - General 02/26/06 Sofa Inspector Relationship Specialty Start Date End Date Antonio Smalls MD [address] [place], [place] [address] PCP - General 02/26/06 Sofa Inspector Relationship Specialty Start Date End Date PlayAntonio cheatham MD [address] [facility] [place] [address] PCP - General 02/26/06 Sofa Inspector Relationship Specialty Start Date End Date PlayAntonio cheatham MD [address] [facility] [place] [address] PCP - General 02/26/06 Sofa Inspector Relationship Specialty Start Date End Date PlayAntonio cheatham MD [address] [facility] [place] [address] PCP - General 02/26/06 Sofa Inspector Relationship [place]ty [place] [address] [place] [address], [place] [address] PCP - General 02/26/06 Sofa Inspector Relationship Specialty Start Date End Date PlayAntonio cheatham MD [address] [place] [place] [address] PCP - General 02/26/06 Sofa Inspector Relationship Specialty Start [place] [address] [place] [address], [place] [address] PCP - General 02/26/06 Sofa Inspector Relationship Specialty Start Date End Date Antonio Smalls MD [address] [facility] [place] [address] PCP - General 02/26/06 Sofa Inspector Relationship Specialty Start [place] [address] [place] [address], [place] [address] PCP - General 02/26/06 Sofa Inspector Relationship Specialty Start Date End Date PlayAntonio cheatham MD [address] [place] [place] [address] PCP - General 02/26/06 Sofa Inspector Relationship Specialty Start Date End Date Playl, Antonio M, MD [address] [place] [place] [address] PCP - General 02/26/06 Sofa Inspector Relationship Specialty Start Date End Date Antonio Smalls MD [address] [place] [place] [address] PCP - General 02/26/06 Sofa Inspector Relationship Specialty Start Date End Date Antonio Smalls MD [address] [place] [place] [address] PCP - General 02/26/06 Sofa Inspector Relationship Specialty [place] [address] [place] [address], [place] [address] PCP - General 02/26/06 Sofa Inspector Relationship Specialty [place] [address] [place] [address], [place] [address] PCP - General 02/26/06 Sofa Inspector Relationship Specialty Start Date End Date Antonio Smalls MD [address] [facility] [place] [address] PCP - General 02/26/06 Sofa Inspector Relationship Specialty Start Date End Date Antonio Smalls MD [address] [facility] [place] [address] PCP - General 02/26/06 Sofa Inspector Relationship Specialty Start Date End Date Antonio Smalls MD [address] [facility] [place] [address] PCP - General 02/26/06 Sofa Inspector Relationship Specialty Start Date End Date Antonio Smalls MD [address] [facility] [place] [address] PCP - General 02/26/06 Zuleika Perez PA-C [address] [place] [address] Gastroenterology 08/22/22 Sofa Inspector Relationship Specialty Start Date End Date Antonio Smalls MD [address] [place] [address] PCP - General 02/26/06 Zuleika Perez PA-C [address] [place] [address] Gastroenterology 08/22/22 Sofa Inspector Relationship Specialty Start Date End Date Antonio Smalls MD [address] [place] [address] PCP - General 02/26/06 Zuleika Perez PA-C [address] [place] [address] Gastroenterology 08/22/22 Sofa Inspector Relationship Specialty Start Date End Date Antonio Smalls MD [address] [place] [address] PCP - General 02/26/06 Zuleika Perez PA-C [address] [place] [address] Gastroenterology 08/22/22 Sofa Inspector Relationship Specialty Start Date End Date Antonio Smalls MD [address] [place] [address] PCP - General 02/26/06 Zuleika Perez PA-C [address] [place] [address] Gastroenterology 08/22/22 Sofa Inspector Relationship Specialty Start Date End Date Antonio Smalls MD [address] [place] [address] PCP - General 02/26/06 Zuleika Perez PA-C [address] [place] [address] Gastroenterology 08/22/22 Sofa Inspector Relationship Specialty Start Date End Date Antonio Smalls MD [address] [place] [address] PCP - General 02/26/06 Zuleika Perez PA-C [address] [place] [address] Gastroenterology 08/22/22 Sofa Inspector Relationship Specialty Start Date End Date Antonio Smalls MD [address] [place] [address] PCP - General 02/26/06 Zuleika Perez PA-C [address] [place] [address] Gastroenterology 08/22/22 Sofa Inspector Relationship Specialty Start Date End Date Antonio Smalls MD [address] [place] [address] PCP - General 02/26/06 Zuleika Perez PA-C [address] [place] [address] Gastroenterology 08/22/22 Sofa Inspector Relationship Specialty Start Date End Date Antonio Smalls MD [address] [place] [address] PCP - General 02/26/06 Zuleika Perez PA-C [address] [place] [address] Gastroenterology 08/22/22 Sofa Inspector Relationship Specialty Start Date End Date Carlie Arreguin MD [address] [place] [address] PCP - General Family Medicine 10/09/22 Zuleika Perez PA-C [address] [place] [address] Gastroenterology 08/22/22 Sofa Inspector Relationship Specialty Start Date End Date Carlie Arreguin MD [address] [place] [address] PCP - General Family Medicine 10/09/22 Zuleika Perez PA-C [address] [place] [address] Gastroenterology 08/22/22 Sofa Inspector Relationship Specialty Start Date End Date Carlie Arreguin MD [address] [place] [address] PCP - General Family Medicine 10/09/22 Zuleika Perez PA-C [address] [place] [address] Gastroenterology 08/22/22 Sofa Inspector Relationship Specialty Start Date End Date Carlie Arreguin MD [address] [place] [address] PCP - General Family Medicine 10/09/22 Zuleika Perez PA-C [address] [place] [address] Gastroenterology 08/22/22 Sofa Inspector Relationship Specialty Start Date End Date Kate Silva MD [address] [place] [address] PCP - General Internal Medicine 10/28/22 Zuleika Perez PA-C [address] [place] [address] Gastroenterology 08/22/22 Sofa Inspector Relationship Specialty Start Date End Date Kate Silva MD [address] [place] [address] PCP - General Internal Medicine 10/28/22 Zuleika Perez PA-C [address] [place] [address] Gastroenterology 08/22/22 Sofa Inspector Relationship Specialty Start Date End Date Kate Silva MD [address] [place] [address] PCP - General Internal Medicine 10/28/22 Zuleika Perez PA-C [address] [place] [address] Gastroenterology 08/22/22 Sofa Inspector Relationship Specialty Start Date End Date Kate Silva MD [address] [place] [address] PCP - General Internal Medicine 10/28/22 Zuleika Perez PA-C [address] [place] [address] Gastroenterology 08/22/22 Sofa Inspector Relationship Specialty Start Date End Date Kate Silva MD [address] [place] [address] PCP - General Internal Medicine 10/28/22 Zuleika Perez PA-C [address] [place] [address] Gastroenterology 08/22/22 Sofa Inspector Relationship Specialty Start Date End Date Kate Silva MD [address] [place] [address] PCP - General Internal Medicine 10/28/22 Zuleika Perez PA-C [address] [place] [address] Gastroenterology 08/22/22 Sofa Inspector Relationship Specialty Start Date End Date Kate Silva MD [address] [place] [address] PCP - General Internal Medicine 10/28/22 Zuleika Perez PA-C [address] [place] [address] Gastroenterology 08/22/22 Sofa Inspector Relationship Specialty Start Date End Date Kate Silva MD [address] [place] [address] PCP - General Internal Medicine 10/28/22 Zuleika Perez PA-C [address] [place] [address] Gastroenterology 08/22/22 Sofa Inspector Relationship Specialty Start Date End Date Kate Silva MD [address] [place] [address] PCP - General Internal Medicine 10/28/22 Zuleika Perez PA-C [address] [place] [address] Gastroenterology 08/22/22 Sofa Inspector Relationship Specialty Start Date End Date Kate Silva MD [address] [place] [address] PCP - General Internal Medicine 10/28/22 Zuleika Perez PA-C [address] [place] [address] Gastroenterology 08/22/22 Sofa Inspector Relationship Specialty Start Date End Date Kate Silva MD [address] [place] [address] PCP - General Internal Medicine 10/28/22 Zuleika Perez PA-C [address] [place] [address] Gastroenterology 08/22/22 Sofa Inspector Relationship Specialty Start Date End Date Kate Silva MD [address] [place] [address] PCP - General Internal Medicine 10/28/22 Zuleika Perez PA-C [address] [place] [address] Gastroenterology 08/22/22 Sofa Inspector Relationship Specialty Start Date End Date Kate Silva MD [address] [place] [address] PCP - General Internal Medicine 10/28/22 Zuleika Perez PA-C [address] [place] [address] Gastroenterology 08/22/22 Sofa Inspector Relationship Specialty Start Date End Date Kate Silva MD [address] [place] [address] PCP - General Internal Medicine 10/28/22 Zuleika Perez PA-C [address] [place], [place] [address] Gastroenterology 08/22/22 Sofa Inspector Relationship Specialty Start Date End Date Kate Silva MD [address] [place] [address] PCP - General Internal Medicine 10/28/22 Zuleika Perez PA-C [address] [place], [place] [address] Gastroenterology 08/22/22 Sofa Inspector Relationship Specialty Start Date End Date Kate Silva MD [address] [place] [address] PCP - General Internal Medicine 10/28/22 Zuleika Perez PA-C [address] [place], [place] [address] Gastroenterology 08/22/22 Sofa Inspector Relationship Specialty Start Date End Date Kate Silva MD [address] [place] [address] PCP - General Internal Medicine 10/28/22 Zuleika Perez PA-C [address] [place], [place] [address] Gastroenterology 08/22/22 Sofa Inspector Relationship Specialty Start Date End Date Kate Silva MD [address] [place] [address] PCP - General Internal Medicine 10/28/22 Zuleika Preez PA-C [address] [facility] [place] [place] [address] Gastroenterology 08/22/22 Gopal Yanez MD [address] [place] [address] Hematology/Oncology 02/07/23 Sofa Inspector Relationship Specialty Start Date End Date Kate Silva MD [address] [place] [address] PCP - General Internal Medicine 10/28/22 Zuleika Perez PA-C [address] [facility] [place] [place] [address] Gastroenterology 08/22/22 Gopal Yanez MD [address] [place] [address] Hematology/Oncology 02/07/23 Sofa Inspector Relationship Specialty Start Date End Date Kate Silva MD [address] [place] [address] PCP - General Internal Medicine 10/28/22 Zuleika Perez PA-C [address] [facility] [place] [address] Gastroenterology 08/22/22 Gopal Yanez MD [address] [place] [address] Hematology/Oncology 02/07/23 Sofa Inspector Relationship Specialty Start Date End Date Kate Silva MD [address] [place] [address] PCP - General Internal Medicine 10/28/22 Zuleika Perez PA-C [address] [place] [address] Gastroenterology 08/22/22 Gopal Yanez MD [address] [place] [address] Hematology/Oncology 02/07/23 Sofa Inspector Relationship Specialty Start Date End Date Kate Silva MD [address] [place] [address] PCP - General Internal Medicine 10/28/22 Zuleika Perez PA-C [address] [place], [place] [address] Gastroenterology 08/22/22 Gopal Yanez MD [address] [place] [address] Hematology/Oncology 02/07/23 Sofa Inspector Relationship Specialty Start Date End Date Kate Silva MD [address] [place] [address] PCP - General Internal Medicine 10/28/22 Zuleika Perez PA-C [address] [facility] [place] [address] Gastroenterology 08/22/22 Gopal Yanez MD [address] [place] [facility] [place] [address] Hematology/Oncology 02/07/23 Sofa Inspector Relationship Specialty Start Date End Date Kate Silva MD [address] [facility] [place] [address] PCP - General Internal Medicine 10/28/22 Zuleika Avalos PA-C [address] [place] [address] Gastroenterology 08/22/22 Gopal Yanez MD [address] [place] [facility] [place] [address] Hematology/Oncology 02/07/23 Sofa Inspector Relationship Specialty Start Date End Date Kate Silva MD [address] [facility] [place] [address] PCP - General Internal Medicine 10/28/22 Zuleika Avalos PA-C [address] [place] [address] Gastroenterology 08/22/22 Gopal Yanez MD [address] [place] [facility] [place] [address] Hematology/Oncology 02/07/23 Sofa Inspector Relationship Specialty Start Date End Date Kate Silva MD [address] [facility] [place] [address] PCP - General Internal Medicine 10/28/22 Zuleika Avalos PA-C [address] [facility] [place] [address] Gastroenterology 08/22/22 Gopal Yanez MD [address] [place] [address] Hematology/Oncology 02/07/23 Sofa Inspector Relationship Specialty Start Date End Date Antonio Smalls MD [address] [place] [address] PCP - General 02/26/06 10/08/22 Sofa Inspector Relationship Specialty Start Date End Date Kate Silva MD [address] [place] [address] PCP - General Internal Medicine 10/28/22 Zuleika Avalos PA-C [address] [place] [address] Gastroenterology 08/22/22 Gopal Yanez MD [address] [place] [address] Hematology/Oncology 02/07/23 Sofa Inspector Relationship Specialty Start Date End Date Kate Silva MD [address] [place] [address] PCP - General Internal Medicine 10/28/22 Zuleika Avalos PA-C [address] [place] [address] Gastroenterology 08/22/22 Gopal Yanez MD [address] [place] [address] Hematology/Oncology 02/07/23 Sofa Inspector Relationship Specialty Start Date End Date Kate Silva MD [address] [place] [address] PCP - General Internal Medicine 10/28/22 Zuleika Avalos PA-C [address] [place] [address] Gastroenterology 08/22/22 Gopal Yanez MD [address] [place] [address] Hematology/Oncology 02/07/23 Sofa Inspector Relationship Specialty Start Date End Date Kate Silva MD [address] [place] [address] PCP - General Internal Medicine 10/28/22 Zuleika Avalos PA-C [address] [place] [address] Gastroenterology 08/22/22 Gopal Yanez MD [address] [address] Hematology/Oncology 02/07/23 Sofa Inspector Relationship Specialty Start Date End Date Kate Silva MD [address] [place] [address] PCP - General Internal Medicine 10/28/22 Zuleika Avalos PA-C [address] [place] [address] Gastroenterology 08/22/22 Gopal Yanez MD [address] [place], [place] [address] Hematology/Oncology 02/07/23 Sofa Inspector Relationship Specialty Start Date End Date Kate Silva MD [address] [place] [address] PCP - General Internal Medicine 10/28/22 Zuleika Avalos PA-C [address] [place] [address] Gastroenterology 08/22/22 Gopal Yanez MD [address] [address] Hematology/Oncology 02/07/23 Sofa Inspector Relationship Specialty Start Date End Date Kate Silva MD [address] [place] [address] PCP - General Internal Medicine 10/28/22 Zuleika Avalos PA-C [address] [place] [address] Gastroenterology 08/22/22 Gopal Yanez MD [address] [place] [address] Hematology/Oncology 02/07/23 Sofa Inspector Relationship Specialty Start Date End Date Kate Silva MD [address] [place] [address] PCP - General Internal Medicine 10/28/22 Zuleika Avalos PA-C [address] [place], [place] [address] Gastroenterology 08/22/22 Gopal Yanez MD [address] [place] [address] Hematology/Oncology 02/07/23 Sofa Inspector Relationship Specialty Start Date End Date Kate Silva MD [address] [place] [address] PCP - General Internal Medicine 10/28/22 Zuleika Avalos PA-C [address] [place], [place] [address] Gastroenterology 08/22/22 Gopal Yanez MD [address] [place] [address] Hematology/Oncology 02/07/23 Sofa Inspector Relationship Specialty Start Date End Date Kate Silva MD [address] [place] [address] PCP - General Internal Medicine 10/28/22 Zuleika Avalos PA-C [address] [facility] [place] [address] Gastroenterology 08/22/22 Gopal Yanez MD [address] [place] [address] Hematology/Oncology 02/07/23 Sofa Inspector Relationship Specialty Start Date End Date Kate Silva MD [address] [place] [address] PCP - General Internal Medicine 10/28/22 Zuleika Avalos PA-C [address] [place] [address] Gastroenterology 08/22/22 Gopal Yanez MD [address] [place] [address] Hematology/Oncology 02/07/23 Sofa Inspector Relationship Specialty Start Date End Date Kate Silva MD [address] [place] [address] PCP - General Internal Medicine 10/28/22 Zuleika Avalos PA-C [address] [place], [place] [address] Gastroenterology 08/22/22 Gopal Yanez MD [address] [place] [address] Hematology/Oncology 02/07/23 Sofa Inspector Relationship Specialty Start Date End Date Kate Silva MD [address] [place] [address] PCP - General Internal Medicine 10/28/22 Zuleika Avalos PA-C [address] [place] [address] Gastroenterology 08/22/22 Gopal Yanez MD [address] [place] [address] Hematology/Oncology 02/07/23 Sofa Inspector Relationship Specialty Start Date End Date Kate Silva MD [address] [facility] [place] [address] PCP - General Internal Medicine 10/28/22 Zuleika Avalos PA-C [address] [place] [address] Gastroenterology 08/22/22 Gopal Yanez MD [address] [address] Hematology/Oncology 02/07/23 Sofa Inspector Relationship Specialty Start Date End Date Kate Silva MD [address] [facility] [place] [address] PCP - General Internal Medicine 10/28/22 Zuleika Avalos PA-C [address] [facility] [place] [address] Gastroenterology 08/22/22 Gopal Yanez MD [address] [place] [address] Hematology/Oncology 02/07/23 Sofa Inspector Relationship Specialty Start Date End Date Kate Silva MD [address] [place] [address] PCP - General Internal Medicine 10/28/22 Zuleika Avalos PA-C [address] [place] [address] Gastroenterology 08/22/22 Gopal Yanez MD [address] [place] [address] Hematology/Oncology 02/07/23 Sofa Inspector Relationship Specialty Start Date End Date Kate Silva MD [address] [place] [address] PCP - General Internal Medicine 10/28/22 Zuleika Avalos PA-C [address] [place] [address] Gastroenterology 08/22/22 Gopal Yanez MD [address] [place] [address] Hematology/Oncology 02/07/23 Sofa Inspector Relationship Specialty Start Date End Date Kate Silva MD [address] [place] [address] PCP - General Internal Medicine 10/28/22 Zuleika Avalos PA-C [address] [place] [address] Gastroenterology 08/22/22 Gopal Yanez MD [address] [place] [address] Hematology/Oncology 02/07/23 Sofa Inspector Relationship Specialty Start Date End Date Kate Silva MD [address] [place], [place] [address] PCP - General Internal Medicine 10/28/22 Zuleika Avalos PA-C [address] [place], [place] [address] Gastroenterology 08/22/22 Gopal Yanez MD [address] [place] [address] Hematology/Oncology 02/07/23 Sofa Inspector Relationship Specialty Start Date End Date Kate Silva MD [address] [place] [address] PCP - General Internal Medicine 10/28/22 Zuleika Avalos PA-C [address] [place] [address] Gastroenterology 08/22/22 Gopal Yanez MD [address] [place] [address] Hematology/Oncology 02/07/23 Sofa Inspector Relationship Specialty Start Date End Date Kate Silva MD [address] [place] [address] PCP - General Internal Medicine 10/28/22 Zuleika Avalos PA-C [address] [facility] [place], [place] [address] Gastroenterology 08/22/22 Gopal Yanez MD [address] [place] [address] Hematology/Oncology 02/07/23 Sofa Inspector Relationship Specialty Start Date End Date Kate Silva MD [address] [place] [address] PCP - General Internal Medicine 10/28/22 Zuleika Avalos PA-C [address] [place], [place] [address] Gastroenterology 08/22/22 Gopal Yanez MD [address] [place] [address] Hematology/Oncology 02/07/23 Sofa Inspector Relationship Specialty Start Date End Date Kate Silva MD [address] [place] [address] PCP - General Internal Medicine 10/28/22 Zuleika Avalos PA-C [address] [place], [place] [address] Gastroenterology 08/22/22 Gopal Yanez MD [address] [place] [address] Hematology/Oncology 02/07/23 Sofa Inspector Relationship Specialty Start Date End Date Kate Silva MD [address] [place] [address] PCP - General Internal Medicine 10/28/22 Zuleika Avalos PA-C [address] [facility] [place] [address] Gastroenterology 08/22/22 Gopal Yanez MD [address] [facility] [place] [address] Hematology/Oncology 02/07/23 Sofa Inspector Relationship Specialty Start Date End Date Kate Silva MD [address] [facility] [place] [address] PCP - General Internal Medicine 10/28/22 Zuleika Avalos PA-C [address] [place] [address] Gastroenterology 08/22/22 Gopal Yanez MD [address] [facility] [place] [address] Hematology/Oncology 02/07/23 Sofa Inspector Relationship Specialty Start Date End Date Kate Silva MD [address] [facility] [place] [address] PCP - General Internal Medicine 10/28/22 Zuleika Avalos PA-C [address] [place] [address] Gastroenterology 08/22/22 Gopal Yanez MD [address] [facility] [place] [address] Hematology/Oncology 02/07/23 Sofa Inspector Relationship Specialty Start Date End Date Kate Silva MD [address] [place] [address] PCP - General Internal Medicine 10/28/22 Zuleika Avalos PA-C [address] [place] [address] Gastroenterology 08/22/22 Gopal Yanez MD [address] [address] Hematology/Oncology 02/07/23 Sofa Inspector Relationship Specialty Start Date End Date Kate Silva MD [address] [place] [address] PCP - General Internal Medicine 10/28/22 Zuleika Avalos PA-C [address] [place] [address] Gastroenterology 08/22/22 Gopal Yanez MD [address] [place] [address] Hematology/Oncology 02/07/23 Sofa Inspector Relationship Specialty Start Date End Date Kate Silva MD [address] [place] [address] PCP - General Internal Medicine 10/28/22 Zuleika Avalos PA-C [address] [place] [address] Gastroenterology 08/22/22 Gopal Yanez MD [address] [facility] [place] [address] Hematology/Oncology 02/07/23 Sofa Inspector Relationship Specialty Start Date End Date Kate Silva MD [address] [place] [address] PCP - General Internal Medicine 10/28/22 Zuleika Avalos PA-C [address] [place] [address] Gastroenterology 08/22/22 Gopal Yanez MD [address] [place] [address] Hematology/Oncology 02/07/23 Sofa Inspector Relationship Specialty Start Date End Date Kate Silva MD [address] [place] [address] PCP - General Internal Medicine 10/28/22 Zuleika Aavlos PA-C [address] [place] [address] Gastroenterology 08/22/22 Gopal Yanez MD [address] [place] [address] Hematology/Oncology 02/07/23 Sofa Inspector Relationship Specialty Start Date End Date Antonio Smalls MD [address] [place] [address] PCP - General 02/26/06 10/08/22 Sofa Inspector Relationship Specialty Start Date End Date Antonio Smalls MD [address] [place], [place] [address]691 PCP - General 02/26/06 10/08/22 Sofa Inspector Relationship Specialty Start Date End Date Kate Silva MD [address] [place] [address] PCP - General Internal Medicine 10/28/22 Zuleika Avalos PA-C [address] [place] [address] Gastroenterology 08/22/22 Gopal Yanez MD [address] [place] [address] Hematology/Oncology 02/07/23 Sofa Inspector Relationship Specialty Start Date End Date Kate Silva MD [address] [place] [address] PCP - General Internal Medicine 10/28/22 Zuleika Avalos PA-C [address] [place] [address] Gastroenterology 08/22/22 Gopal Yanez MD [address] [place] [address] Hematology/Oncology 02/07/23 Sofa Inspector Relationship Specialty Start Date End Date Kate Silva MD [address] [place] [address] PCP - General Internal Medicine 10/28/22 Zuleika Avalos PA-C [address] [place] [address] Gastroenterology 08/22/22 Gopal Yanez MD [address] [place] [address] Hematology/Oncology 02/07/23 Sofa Inspector Relationship Specialty Start Date End Date Kate Silva MD [address] [place] [address] PCP - General Internal Medicine 10/28/22 Zuleika Avalos PA-C [address] [place] [address] Gastroenterology 08/22/22 Gopal Yanez MD [address] [address] Hematology/Oncology 02/07/23 Sofa Inspector Relationship Specialty Start Date End Date Kate Silva MD [address] [place] [address] PCP - General Internal Medicine 10/28/22 Zuleika Avalos PA-C [address] [place] [address] Gastroenterology 08/22/22 Gopal Yanez MD [address] [place] [address] Hematology/Oncology 02/07/23 Sofa Inspector Relationship Specialty Start Date End Date Kate Silva MD [address] [place] [address] PCP - General Internal Medicine 10/28/22 Zuleika Avalos PA-C [address] [place] [address] Gastroenterology 08/22/22 Gopal Yanez MD [address] [place] [address] Hematology/Oncology 02/07/23 Sofa Inspector Relationship Specialty Start Date End Date Kate Silva MD [address] [place] [address] PCP - General Internal Medicine 10/28/22 Zuleika Avalos PA-C [address] [place], [place] [address] Gastroenterology 08/22/22 Gopal Yanez MD [address] [place] [address] Hematology/Oncology 02/07/23 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, 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 [employer] [address] [place] [address] Welfare Interviewer Internal Medicine 06/07/24 Sher Hollingsworth, BELL MAKER.JAMB CUTTER [address] [place] [address] Welfare Interviewer Internal Medicine 06/07/24 Sofa Inspector Relationship Specialty Start Date End Date Kate Silva MD [address] [place] [address] PCP - General Internal Medicine 10/28/22 Zuleika Avalos PA-C [address] [place], [place] [address] Gastroenterology 08/22/22 Gopal Yanez MD [address] [place] [address] Hematology/Oncology 02/07/23 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, HARLAN.VICE PRESIDENT & GENERAL MANAGER [employer] [address] [facility] [place] [address] Welfare Interviewer Internal Medicine 06/07/24 Sher Hollingsworth APRN.JAMB CUTTER [address] [facility] [place] [address] Welfare Interviewer Internal Medicine 06/07/24 Sofa Inspector Relationship Specialty Start Date End Date Kate Silva MD [address] [facility] [place] [address] PCP - General Internal Medicine 10/28/22 Zuleika Avalos PA-C [address] [place] [address] Gastroenterology 08/22/22 Gopal Yanez MD [address] [facility] [place] [address] Hematology/Oncology 02/07/23 eDmi Alfonso APRN.VICE PRESIDENT & GENERAL MANAGER [employer] [address] [facility] [place] [address] Welfare Interviewer Internal Medicine 06/07/24 Sher Hollingsworth APRN.JAMB CUTTER [address] [facility] [place] [address] [facility] Internal Medicine 06/07/24 Sofa Inspector Relationship Specialty Start Date End Date Kate Silva MD [address] [place] [address] PCP - General Internal Medicine 10/28/22 Zuleika Avalos PA-C [address] [place] [address] Gastroenterology 08/22/22 Gopal Yanez MD [address] [place] [address] Hematology/Oncology 02/07/23 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, 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 [employer] [address] [place] [address] Welfare Interviewer Internal Medicine 06/07/24 Sher Hollingsworth BELL MAKER.JAMB CUTTER [address] [place] [address] Welfare Interviewer Internal Medicine 06/07/24 Sofa Inspector Relationship Specialty Start Date End Date Kate Silva MD [address] [place] [address] PCP - General Internal Medicine 10/28/22 Zuleika Avalos PA-C [address] [place] [address] Gastroenterology 08/22/22 Gopal Yanez MD [address] [place], [place] [address] Hematology/Oncology 02/07/23 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, 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 [employer] [address] [place], [place] [address] Welfare Interviewer Internal Medicine 06/07/24 Sher Hollingsworth, BELL MAKER.JAMB CUTTER [address] [place] [address] [facility] Internal Medicine 06/07/24 Sofa Inspector Relationship Specialty Start Date End Date Kate Silva MD [address] [place] [address] PCP - General Internal Medicine 10/28/22 Zuleika Avalos PA-C [address] [place], [place] [id number] Gastroenterology 08/22/22 Gopal Yanez MD [address] [place] [address] Hematology/Oncology 02/07/23 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, 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 [employer] [address] [place] [address] Welfare Interviewer Internal Medicine 06/07/24 Sher Hollingsworth, BELL MAKER.JAMB CUTTER [address] [place] [address] [facility] Internal Medicine 06/07/24 Sofa Inspector Relationship Specialty Start Date End Date Kate Silva MD [address] [place] [address] PCP - General Internal Medicine 10/28/22 Zuleika Avalos PA-C [address] [place], [place] [id number] Gastroenterology 08/22/22 Gopal Yanez MD [address] [place] [address] Hematology/Oncology 02/07/23 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 APRN.VICE PRESIDENT & GENERAL MANAGER [employer] [address] [place] [address] Welfare Interviewer Internal Medicine 06/07/24 Sher Hollingsworth APRN.JAMB CUTTER [address] [facility] [place] [address] Welfare Interviewer Internal Medicine 06/07/24 Sofa Inspector Relationship Specialty Start Date End Date Kate Silva MD [address] [place] [address] PCP - General Internal Medicine 10/28/22 Zuleika Avalos PA-C [address] [place] [address] Gastroenterology 08/22/22 Gopal Yanez MD [address] [place] [address] Hematology/Oncology 02/07/23 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 APRN.VICE PRESIDENT & GENERAL MANAGER [employer] [address] [place] [address] Welfare Interviewer Internal Medicine 06/07/24 Sher Hollingsworth BELL MAKER.JAMB CUTTER [address] [facility] [place] [address] Welfare Interviewer Internal Medicine 06/07/24 Sofa Inspector Relationship Specialty Start Date End Date Kate Silva MD [address] [facility] [place] [address] PCP - General Internal Medicine 10/28/22 Zuleika Avalos PA-C [address] [facility] [place] [address] Gastroenterology 08/22/22 Gopal Yanez MD [address] [place] [address] Hematology/Oncology 02/07/23 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 [employer] [address] [facility] [place] [address] Welfare Interviewer Internal Medicine 06/07/24 Sher Hollingsworth APRN.JAMB CUTTER [address] [facility] [place] [address] Welfare Interviewer Internal Medicine 06/07/24 Sofa Inspector Relationship Specialty Start Date End Date Kate Silva MD [address] [facility] [place] [address] PCP - General Internal Medicine 10/28/22 Zuleika Avalos PA-C [address] [place] [address] Gastroenterology 08/22/22 Gopal Yanez MD [address] [place] [address] Hematology/Oncology 02/07/23 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, HARLAN.VICE PRESIDENT & GENERAL MANAGER [employer] [address] [facility] [place] [address] Welfare Interviewer Internal Medicine 06/07/24 Sher Hollingsworth APRN.JAMB CUTTER [address] [place] [address] Welfare Interviewer Internal Medicine 09/21/24 Team Status: Active Member Role Status Dates Dr. Kate Silva MD Primary Care Provider Active Team Status: Inactive Member Role Status Dates Dr. Kate Silva MD Primary Care Provider Active Start: September 29, 2024 End: September 29, 2024 Dr. Shiv Roper DO Emergency Provider Active Start: September 29, 2024 End: September 29, 2024 Sofa Inspector Relationship Specialty Start Date End Date Kate Silva MD [address] [place] [address] PCP - General Internal Medicine 10/28/22 Zuleika Avalos PA-C [address] [place] [address] Gastroenterology 08/22/22 Gopal Yanez MD [address] [place] [address] Hematology/Oncology 02/07/23 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 APRN.VICE PRESIDENT & GENERAL MANAGER [employer] [address] [facility] [place] [address] [facility] Internal Medicine 06/07/24 Sher Hollingsworth BELL MAKER.JAMB CUTTER [address] [place] [address] [facility] Internal Medicine 09/21/24 Sofa Inspector Relationship Specialty Start Date End Date Kate Silva MD [address] [facility] [place] [address] PCP - General Internal Medicine 10/28/22 Zuleika Avalos PA-C [address] [facility] [place] [address] Gastroenterology 08/22/22 Gopal Yanez MD [address] [facility], [place] [address] Hematology/Oncology 02/07/23 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, 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 [employer] [address] [facility] [place] [address] Welfare Interviewer Internal Medicine 06/07/24 Sher Hollingsworth, BELL MAKER.JAMB CUTTER [address] [facility] [place] [address] Welfare Interviewer Internal Medicine 09/21/24 Team Status: Inactive Member [...] October 06, 2024 End: October 06, 2024 Sofa Inspector Relationship Specialty Start Date End Date Kate Silva MD [address] [facility] [place] [address] PCP - General Internal Medicine 10/28/22 Zuleika Avalos PA-C [address] [facility] [place] [address] Gastroenterology 08/22/22 Gopal Yanez MD [address] [place] [address] Hematology/Oncology 02/07/23 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 [employer] [address] [place] [address] Welfare Interviewer Internal Medicine 06/07/24 Sher Hollingsworth APRN.JAMB CUTTER [address] [place] [address] Welfare Interviewer Internal Medicine 09/21/24 Sofa Inspector Relationship Specialty Start Date End Date Kate Silva MD [address] [place] [address] PCP - General Internal Medicine 10/28/22 Zuleika Avalos PA-C [address] [place] [address] Gastroenterology 08/22/22 Gopal Yanez MD [address] [place] [address] Hematology/Oncology 02/07/23 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 [employer] [address] [place] [address] Welfare Interviewer Internal Medicine 06/07/24 Sher Hollingsworth APRN.JAMB CUTTER [address] [place] [address] Welfare Interviewer Internal Medicine 09/21/24 Sofa Inspector Relationship Specialty Start Date End Date Kate Silva MD [address] [place] [address] PCP - General Internal Medicine 10/28/22 Zuleika Avalos PA-C [address] [facility] [place] [address] Gastroenterology 08/22/22 Gopal Yanez MD [address] [place] [address] Hematology/Oncology 02/07/23 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, 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 [employer] [address] [place] [address] Welfare Interviewer Internal Medicine 06/07/24 Sher Hollingsworth BELL MAKER.JAMB CUTTER [address] [place] [address] Welfare Interviewer Internal Medicine 09/21/24 Sofa Inspector Relationship Specialty Start Date End Date Kate Silva MD [address] [place] [address] PCP - General Internal Medicine 10/28/22 Zuleika Avalos PA-C [address] [facility] [place] [address] Gastroenterology 08/22/22 Gopal Yanez MD [address] [place] [address] Hematology/Oncology 02/07/23 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, 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 [employer] [address] [place] [address] Welfare Interviewer Internal Medicine 06/07/24 Sher Hollingsworth, BELL MAKER.JAMB CUTTER [address] [place] [address] [facility] Internal Medicine 09/21/24 Sofa Inspector Relationship Specialty Start Date End Date Kate Silva MD [address] [place] [address] PCP - General Internal Medicine 10/28/22 Zuleika Avalos PA-C [address] [facility] [place] [address] Gastroenterology 08/22/22 Gopal Yanez MD [address] [place] [address] Hematology/Oncology 02/07/23 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 APRN.VICE PRESIDENT & GENERAL MANAGER [employer] [address] [place] [address] [facility] Internal Medicine 06/07/24 Sher Hollingsworth BELL MAKER.JAMB CUTTER [address] [place] [address] [facility] Internal Medicine 09/21/24 Sofa Inspector Relationship Specialty Start Date End Date Kate Silva MD [address] [place] [address] PCP - General Internal Medicine 10/28/22 Zuleika Avalos PA-C [address] [facility] [place] [place] [address] Gastroenterology 08/22/22 Gopal Yanez MD [address] [place] 215131 Hematology/Oncology 02/07/23 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, 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 [employer] [address] [place] [address] Welfare Interviewer Internal Medicine 06/07/24 Sher Hollingsworth, BELL MAKER.JAMB CUTTER [address] [facility] [place] [address] Welfare Interviewer Internal Medicine 09/21/24 Team Status: Inactive Member [...] October 25, 2024 End: October 25, 2024 Sofa Inspector Relationship Specialty Start Date End Date Kate Silva MD [address] [place] [address] PCP - General Internal Medicine 10/28/22 Zuleika Avalos PA-C [address] [facility] [place] [address] Gastroenterology 08/22/22 Gopal Yanez MD [address] [place] [address] Hematology/Oncology 02/07/23 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, 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 [employer] [address] [place] [address] Welfare Interviewer Internal Medicine 06/07/24 Sher Hollingsworth BELL MAKER.JAMB CUTTER [address] [place] [address] Welfare Interviewer Internal Medicine 09/21/24 Sofa Inspector Relationship Specialty Start Date End Date Kate Silva MD [address] [place] [address] PCP - General Internal Medicine 10/28/22 Zuleika Avalos PA-C [address] [place] [address] Gastroenterology 08/22/22 Gopal Yanez MD [address] [place] [facility] [place] [address] Hematology/Oncology 02/07/23 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, 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 [employer] [address] [place] [address] [facility] Internal Medicine 06/07/24 Sher Hollingsworth BELL MAKER.JAMB CUTTER [address] [place] [address] [facility] Internal Medicine 09/21/24 Sofa Inspector Relationship Specialty Start Date End Date Kate Silva MD [address] [place] [address] PCP - General Internal Medicine 10/28/22 Zuleika Avalos PA-C [address] [place] [address] Gastroenterology 08/22/22 Gopal Yanez MD [address] [place] [address] Hematology/Oncology 02/07/23 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 APRN.VICE PRESIDENT & GENERAL MANAGER [employer] [address] [place] [address] Welfare Interviewer Internal Medicine 06/07/24 Sher Hollingsworth APRN.JAMB CUTTER [address] [place] [address] Welfare Interviewer Internal Medicine 09/21/24 Sofa Inspector Relationship Specialty Start Date End Date Kate Silva MD [address] [place] [address] PCP - General Internal Medicine 10/28/22 Zuleika Avalos PA-C [address] [place] [address] Gastroenterology 08/22/22 Gopal Yanez MD [address] [place] [address] Hematology/Oncology 02/07/23 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 APRN.VICE PRESIDENT & GENERAL MANAGER [employer] [address] [place] [address] Welfare Interviewer Internal Medicine 06/07/24 Sher Hollingsworth APRN.JAMB CUTTER [address] [facility] [place] [address] Welfare Interviewer Internal Medicine 09/21/24 Sofa Inspector Relationship Specialty Start Date End Date Kate Silva MD [address] [place] [address] PCP - General Internal Medicine 10/28/22 Zuleika Avalos PA-C [address] [place] [address] Gastroenterology 08/22/22 Gopal Yanez MD [address] [place] [address] Hematology/Oncology 02/07/23 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 APRN.VICE PRESIDENT & GENERAL MANAGER [employer] [address] [facility] [place] [address] Welfare Interviewer Internal Medicine 06/07/24 Sher Hollingsworth APRN.JAMB CUTTER [address] [place] [address] Welfare Interviewer Internal Medicine 09/21/24 Sofa Inspector Relationship Specialty Start Date End Date Kate Silva MD [address] [place] [address] PCP - General Internal Medicine 10/28/22 Zuleika Avalos PA-C [address] [place] [address] Gastroenterology 08/22/22 Gopal Yanez MD [address] [place] [address] Hematology/Oncology 02/07/23 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, 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 [employer] [address] [place] [address] Welfare Interviewer Internal Medicine 06/07/24 Sher Hollingsworth, BELL MAKER.JAMB CUTTER [address] [place] [address] Welfare Interviewer Internal Medicine 09/21/24 Sofa Inspector Relationship Specialty Start Date End Date Kate Silva MD [address] [place] [address] PCP - General Internal Medicine 10/28/22 Zuleika Avalos PA-C [address] [place] [address] Gastroenterology 08/22/22 Gopal Yanez MD [address] [place] [address] Hematology/Oncology 02/07/23 Sher Hollingsworth, BELL MAKER.JAMB CUTTER [address] [place] [address] Welfare Interviewer Internal Medicine 09/21/24 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, 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 [employer] [address] [place] [address] Welfare Interviewer Internal Medicine 11/17/24 Sofa Inspector Relationship Specialty Start Date End Date Kate Silva MD [address] [place] [address] PCP - General Internal Medicine 10/28/22 Zuleika Avalos PA-C [address] [place] [address] Gastroenterology 08/22/22 Gopal Yanez MD [address] [place] [address] Hematology/Oncology 02/07/23 Demi Alfonso APRN.VICE PRESIDENT & GENERAL MANAGER [employer] [address] [facility] [place] [address] Welfare Interviewer Internal Medicine 06/07/24 Sher Hollingsworth APRN.JAMB CUTTER [address] [facility] [place] [address] Welfare Interviewer Internal Medicine 09/21/24 Team Status: Inactive Member [...] December 02, 2024 End: December 02, 2024 Sofa Inspector Relationship Specialty Start Date End Date Kate Silva MD [address] [place] [address] PCP - General Internal Medicine 10/28/22 Zuleika Avalos PA-C [address] [place] [address] Gastroenterology 08/22/22 Gopal Yanez MD [address] [place] [address] Hematology/Oncology 02/07/23 Sher Hollingsworth, BELL MAKER.JAMB CUTTER [address] [place] [address] Welfare Interviewer Internal Medicine 09/21/24 Demi Alfonso, 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 [employer] [address] [place] [address] Welfare Interviewer Internal Medicine 11/17/24 Sofa Inspector Relationship Specialty Start Date End Date Kate Silva MD [address] [place] [address] PCP - General Internal Medicine 10/28/22 Zuleika Avalos PA-C [address] [facility] [place] [address] Gastroenterology 08/22/22 Gopal Yanez MD [address] [place] [address] Hematology/Oncology 02/07/23 Sher Hollingsworth APRN.JAMB CUTTER [address] [facility] [place] [address] Welfare Interviewer Internal Medicine 09/21/24 Demi Alfonso APRN.VICE PRESIDENT & GENERAL MANAGER [employer] [address] [facility] [place] [address] Welfare Interviewer Internal Medicine 11/17/24 Sofa Inspector Relationship Specialty Start Date End Date Kate Silva MD [address] [place] [address] PCP - General Internal Medicine 10/28/22 Zuleika Avalos PA-C [address] [facility] [place] [address] Gastroenterology 08/22/22 Gopal Yanez MD [address] [place] [address] Hematology/Oncology 02/07/23 Sher Hollingsworth APRN.JAMB CUTTER [address] [facility] [place] [address] Welfare Interviewer Internal Medicine 09/21/24 Demi Alfonso APRN.VICE PRESIDENT & GENERAL MANAGER [employer] [address] [place] [address] Welfare Interviewer Internal Medicine 11/17/24 Sofa Inspector Relationship Specialty Start Date End Date Kate Silva MD [address] [place] [address] PCP - General Internal Medicine 10/28/22 Zuleika Avalos PA-C [address] [place] [address] Gastroenterology 08/22/22 Gopal Yanez MD [address] [place] [address] Hematology/Oncology 02/07/23 Demi Alfonso, 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 [employer] [address] [place] [address] Welfare Interviewer Internal Medicine 06/07/24 11/16/24 Sher Hollingsworth, BELL MAKER.JAMB CUTTER [address] [place] [address] Welfare Interviewer Internal Medicine 09/21/24 Demi Alfonso, 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 [employer] [address] [place] [address] Welfare Interviewer Internal Medicine 11/17/24 Sofa Inspector Relationship Specialty Start Date End Date Kate Silva MD [address] [place] [address] PCP - General Internal Medicine 10/28/22 Zuleika Avalos PA-C [address] [place] [address] Gastroenterology 08/22/22 Gopal Yanez MD [address] [place] [address] Hematology/Oncology 02/07/23 Sher Hollingsworth BELL MAKER.JAMB CUTTER [address] [place] [address] Welfare Interviewer Internal Medicine 09/21/24 Demi Alfonso 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 [employer] [address] [place] [address] Welfare Interviewer Internal Medicine 11/17/24 Sofa Inspector Relationship Specialty Start Date End Date Kate Silva MD [address] [facility] [place] [address] PCP - General Internal Medicine 10/28/22 Zuleika Avalos PA-C [address] [facility] [place] [address] Gastroenterology 08/22/22 Gopal Yanez MD [address] [place] [address] Hematology/Oncology 02/07/23 Sher Hollingsworth BELL MAKER.JAMB CUTTER [address] [place] [address] Welfare Interviewer Internal Medicine 09/21/24 Demi Alfonso, 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 [employer] [address] [facility] [place] [address] [facility] Internal Medicine 11/17/24 Sofa Inspector Relationship Specialty Start Date End Date Kate Silva MD [address] [place] [address] PCP - General Internal Medicine 10/28/22 Zuleika Avalos PA-C [address] [place] [address] Gastroenterology 08/22/22 Gopal Yanez MD [address] [place] [address] Hematology/Oncology 02/07/23 Sher Hollingsworth, BELL MAKER.JAMB CUTTER [address] [place] [address] Welfare Interviewer Internal Medicine 09/21/24 Demi Alfonso, 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 [employer] [address] [place] [address] Welfare Interviewer Internal Medicine 11/17/24 Sofa Inspector Relationship Specialty Start Date End Date Kate Silva MD [address] [place] [address] PCP - General Internal Medicine 10/28/22 Zuleika Avalos PA-C [address] [place] [address] Gastroenterology 08/22/22 Gopal Yanez MD [address] [place] [address] Hematology/Oncology 02/07/23 Sher Hollingsworth, BELL MAKER.JAMB CUTTER [address] [place] [address] Welfare Interviewer Internal Medicine 09/21/24 Demi Alfonso, HARLAN.VICE PRESIDENT & GENERAL MANAGER [employer] [address] [place] [address] [facility] Internal Medicine 11/17/24 Sofa Inspector Relationship Specialty Start Date End Date Kate Silva MD [address] [place] [address] PCP - General Internal Medicine 10/28/22 Zuleika Avalos PA-C [address] [place] [address] Gastroenterology 08/22/22 Gopal Yanez MD [address] [place] [address] Hematology/Oncology 02/07/23 Sher Hollingsworth APRN.JAMB CUTTER [address] [place] [address] [facility] Internal Medicine 09/21/24 Demi Alfonso, 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 [employer] [address] [place] [address] [facility] Internal Medicine 11/17/24 Goals (unrecognized section and [...] BE BASED ON THE PRIMARY CLINICAL RECORDS. [employer] provides no warranty or guarantee of the accuracy or completeness of information in this document.
[2025-06-27 21:38] VITALS: BP 133/82; PULSE 98; RESP 16; TEMP 36.5; O2SAT 98
== END 2025-06-27 21:44 | disposition home or self-care (01) ==
PROVIDERS: Emergency Provider Emergency Medicine; PCP Internal Medicine; Visit Provider Emergency Medicine
DX: K02.9 Dental caries, unspecified (principal); F17.290 Nicotine dependence, other tobacco product, uncomplicated
CPT/HCPCS: 82962; 99283